=== PATIENT | female | born 1995 | race Caucasian/White ===

== ENCOUNTER 2024-05-14 14:20 | Emergency (ER) | payer OTHER, SELFPAY ==
[2024-05-14] VITALS (11 sets, daily range): BP systolic 100–119; BP diastolic 61–89; PULSE 110; TEMP 36.8; O2SAT 97–100; BMI 25.5
--- NOTE | 2024-05-14 14:43 | CT_ITS ---
[address] [address] Patient Name: TYRONE CLAROS MRN: [id number] date: 1995 Sex: F Assigned Patient Location: ER Current Patient Location: .[facility] Accession/Order Number: [id number] Exam Date: 05/14/2024 15:34 Report Date: 05/14/2024 16:05 At the request of: ALEXIS GALAN Procedure: CT abdomen pelvis w con EXAMINATION: CT abdomen pelvis w con HISTORY: lower abd pain, post op ; burning with urination; cyst removed from ovary; appendectomy 1 month ago COMPARISON: CT abdomen pelvis 12/18/2023 TECHNIQUE: Axial, Coronal, and Sagittal images were obtained without and/or with IV contrast as indicated by examination type. Dose reduction techniques were achieved by using automated exposure control and/or adjustment of mA and/or kV according to patient size and/or use of iterative reconstruction technique. FINDINGS: LUNG BASES: No visible pulmonary or pleural disease. LIVER: No enlargement, atrophy, suspicious density, or significant focal lesion. BILIARY: No dilatation or calcification. PANCREAS: No lesion, fluid collection, or abnormal duct dilatation. SPLEEN: Enlarged, 13.1 cm. ADRENALS: No mass or enlargement. KIDNEYS: No mass, obstruction, or calcification. BOWEL/MESENTERY: No visible mass, obstruction, or bowel wall thickening. Appendectomy. AORTA/VASCULAR: No aneurysm or dissection. RETROPERITONEUM: No mass or adenopathy. LYMPH NODES: No adenopathy. URINARY BLADDER: No visible focal wall thickening, lesion, or calculus. PELVIC ORGANS: Hysterectomy. Several prominent cysts within right ovary, largest is 2.4 cm. Unremarkable left ovary. Mild edema within the pelvic fat consistent with recent surgery. ABDOMINAL WALL: Mild edema and stranding within anterior abdominal wall consistent with recent surgery. Tiny fat filled umbilical hernia. BONES: No bony lesion or fracture. OTHER: Negative. CT/CT abdomen pelvis w con IMPRESSION: 1. Mild splenomegaly; nonspecific. 2. Right ovary contains several prominent cysts, largest is 2.4 cm. This may contribute to patient's symptoms. 3. Mild edema/inflammatory changes within the pelvis with evidence of prior appendectomy and hysterectomy. No abscess, free air, free fluid. 4. Unremarkable kidneys, ureters, and urinary bladder. Electronically authenticated by: ARI RADFORD Date: 05/14/2024 16:05
--- NOTE | 2024-05-14 14:44 | ED.ABDPAIN1 ---
Documented by User: ELA Olivier 05/14/24 18:33 HPI - Abdominal Pain General Chief Complaint: Abdominal Pain Stated Complaint: POSSIBLE POST OP COMPLICATIONS Time Seen by Provider: 05/14/24 14:33 Source: patient Mode of arrival: Wheelchair Limitations: no limitations History of Present Illness HPI narrative: 28-year-old female presents to the emergency department complaint of abdominal pain. Locates pain to the mid, lower abdominal region. Describes as sharp, stabbing. Has been constant since yesterday. Has had associated nausea and vomiting. Patient with history of surgery at the end of March at [facility]. Was released April 23. Reports surgeries for cysts and had her appendix removed. Has had some chills since yesterday. Denies any fever, diarrhea, constipation, dysuria. Thinks she may have had some hematuria. Quality:?Sharp Severity:?Moderate Timing:?As above, constant Context: Normal setting and activity? Modifying factors:?Pain worse with palpation Associated symptoms: As above Related Data Previous Rx's ?Medication ?Instructions ?Recorded ibuprofen 600 mg tablet 600 mg PO Q8H PRN pain #20 tabs 05/14/24 ondansetron 4 mg disintegrating 4 mg PO Q8H PRN nausea and 05/14/24 tablet vomiting #10 tabs tramadol 25 mg tablet 25 mg PO Q8H PRN pain 3 days #8 05/14/24 tabs Allergies Allergy/AdvReac Type Severity Reaction Status Date / Time chlorpheniramine (From Allergy Severe Swelling Verified 05/14/24 14:34 Triaminic Cold and Cough) of Lip/Tongue/Throat dextromethorphan (From Allergy Severe Swelling Verified 05/14/24 14:34 Triaminic Cold and Cough) of Lip/Tongue/Throat pseudoephedrine (From Allergy Severe Swelling Verified 05/14/24 14:34 Triaminic Cold and Cough) of Lip/Tongue/Throat Review of Systems ROS Constitutional Reports: chills; Denies: fever Cardiovascular Denies: chest pain Respiratory Denies: shortness of breath Gastrointestinal Reports: abdominal pain, nausea and vomiting; Denies: diarrhea, constipation or bloating Genitourinary Reports: blood in urine; Denies: painful urination or urinary frequency Musculoskeletal Denies: back pain PFSH PFS Surgical History (Updated 05/14/24 @ 15:18 by Josiah Barber) History of appendectomy ?Z90.49 - Acquired absence of other specified parts of digestive tract (ICD-10) History of removal of ovarian cyst ?Z98.890 - Other specified postprocedural states (ICD-10) ?Z87.42 - Personal history of other diseases of the female genital tract (ICD-10) History of hysterectomy ?Z90.710 - Acquired absence of both cervix and uterus (ICD-10) Exam Constitutional Vital Signs, click to edit/add: Last Vital Signs Temp 98.3 F 05/14/24 14:28 Pulse 110 H 05/14/24 14:28 Resp 22 H 05/14/24 14:28 BP 100/62 05/14/24 17:00 Pulse Ox 99 05/14/24 17:15 O2 Del Method Room Air 05/14/24 16:15 Documenting provider has reviewed patient's vital signs: yes Common normals: no apparent distress, oriented x3 and alert General appearance: well developed; not comfortable HENMT Common normals: normocephalic and head/scalp atraumatic Head and scalp: normocephalic and atraumatic Eye Common normals: conjunctivae normal Conjunctiva: conjunctiva(e) normal Respiratory Common normals: normal respiratory effort and clear to auscultation bilaterally Effort & inspection: able to speak in complete sentences Auscultation: clear to auscultation bilaterally Cardio Common normals: regular rate, regular rhythm and no murmurs Rate: regular rate Rhythm: regular rhythm GI Inspection: no abdominal distension Palpation: soft; non-tender and no guarding Other: Overall, the abdomen is soft. She has diffuse ecchymosis throughout the mid to lower abdominal region. There is a well-healing surgical scar going from umbilicus to pelvic region. There is some firmness, consider scar tissue versus mass. There is associated tenderness to this area as well as to the right mid abdominal regions. No appreciable distention. No rebound or guarding present Common normals: no CVA tenderness Bladder/kidney exam: no CVA tenderness Back & Pelvis Common normals: no CVA tenderness Neuro Common normals: oriented x3, moves all extremities and no focal motor deficits Sensorium/orientation: alert Psych Common normals: mental status grossly normal, thought process normal and cooperative Thought process: normal thought process Course Vital Signs Vital signs: Vital Signs Temperature 98.3 F 05/14/24 14:28 Pulse Rate 110 H 05/14/24 14:28 Respiratory Rate 22 H 05/14/24 14:28 Blood Pressure 119/89 05/14/24 14:28 Pulse Oximetry 98 05/14/24 14:28 Temperature 98.3 F 05/14/24 14:28 Pulse Rate 110 H 05/14/24 14:28 Respiratory Rate 22 H 05/14/24 14:28 Blood Pressure 100/62 05/14/24 17:00 Pulse Oximetry 99 05/14/24 17:15 Oxygen Delivery Method Room Air 05/14/24 16:15 MDM - Abdominal Pain MDM Narrative Medical decision making narrative: This is a pleasant 28-year-old female who presents with history of mid, lower abdominal pain since yesterday. History of surgery involving ovarian cyst, appendectomy at the end of March at [facility]. States had been doing well until yesterday. Has had nausea and vomiting. Denies any known fevers, dysuria, frequency. Patient with history of partial hysterectomy, still has both of her ovaries. On arrival, afebrile, vital signs are stable Exam, nontoxic, uncomfortable. Patient in no gross distress. Heart regular rate and rhythm. Lung sounds clear and equal bilaterally. Abdomen is soft with some tenderness diffusely to the lower abdominal and right mid regions. She does have a little firmness over her well-healing surgical scar that would be consistent with scar tissue. No rebound or guarding present. No discoloration. IV access established, blood work drawn, patient was given fluids and pain medication. She was given 2 doses of 4 mg morphine, Zofran, Toradol. Labs reveal no leukocytosis, anemia, thrombocytopenia, electrolyte imbalance, renal impairment. Glucose 84. LFTs, lipase unremarkable urinalysis shows no evidence of infection ET abdomen pelvis reveals mild splenomegaly; nonspecific. Right ovary contains several prominent cyst, largest is 2.4 cm. This may contribute to the patient's symptoms. Mild edema/inflammatory changes within the pelvis with evidence of prior appendectomy and hysterectomy. No abscess, free air, free fluid. Unremarkable kidneys, ureters, and urinary bladder. Favor postsurgical inflammatory changes, ovarian cyst in the etiology of her pain Abscess, perforation less likely based on imaging Urinary tract infection less likely based on laboratory testing History and record review Additional records reviewed: Attempted to obtain reports from Virgie Rowell without success. PDMP reviewed Additional testing interventions IV fluids: Hydration Reevaluation: Clinically improving and feeling better Complaint Disposition ? The patient was discharged. Plan: Patient will be discharged to home. Condition at time of disposition: stable Prescriptions for Motrin, Zofran, limited amount of tramadol sent to her pharmacy she Advised to follow up with primary provider. Advised to return for any worsening and/or development of new, concerning signs or symptoms Admission was considered, but no findings and diagnostic evaluation to be suggestive of infection, surgical problem PLEASE NOTE: Portions of the medical record may have been produced using electronic stitchdown toe former and may contain errors with respect to translation of words which may not have been identified prior to finalization of the chart. Medical Records Attestation: I reviewed the patient's medical records. Lab Data Attestation: I reviewed the patient's lab results. Labs: Lab Results 05/14/24 05/14/24 Range/Units 14:37 14:50 WBC 8.9 (4.0-11.0) 10^3/uL RBC 4.34 (4.20-5.40) 10^6/uL Hgb 12.1 (12.0-16.0) g/dL Hct 37.3 (36.0-48.0) % MCV 85.9 (81.0-99.0) fL MCH 27.9 (26.7-34.0) pg MCHC 32.4 (29.9-35.2) g/dL RDW 12.9 (11.0-15.0) % Plt Count 179 (150-450) 10^3/uL MPV 11.1 (9.5-13.5) fL Neut % (Auto) 67.3 (43.0-75.0) % Lymph % (Auto) 22.3 (20.5-60.0) % [place] % (Auto) 8.0 (1.7-12.0) % Eos % (Auto) 0.8 L (0.9-7.0) % Baso % (Auto) 0.5 (0.2-2.0) % Neut # (Auto) 6.0 (1.4-6.5) 10^3/uL Lymph # (Auto) 2.0 (1.2-3.8) 10^3/uL [place] # (Auto) 0.7 (0.3-0.8) 10^3/uL Eos # (Auto) 0.1 (0.0-0.7) 10^3/uL Baso # (Auto) 0.0 (0.0-0.1) 10^3/uL Abs Immat Gran (auto) 0.10 H (0.00-0.03) 10^3/uL Imm/Tot Granulo (auto) 1.1 H (0.0-0.5) % Sodium 139 (136-145) mmol/L Potassium 3.6 (3.5-5.1) mmol/L Chloride 102 (98-107) mmol/L Carbon Dioxide 26.0 (21.0-32.0) mmol/L Anion Gap 14.6 BUN 11.0 (7.0-18.0) mg/dL Creatinine 0.68 (0.55-1.02) mg/dL Est GFR ( Amer) >60 (>=60 mL/min/1.73m^2) Est GFR (Non-Af Amer) >60 (>=60 mL/min/1.73m^2) BUN/Creatinine Ratio 16.2 Glucose 84 (74-106) mg/dL Calcium 9.2 (8.5-10.1) mg/dL Magnesium 2.0 (1.8-2.4) mg/dL Total Bilirubin 0.4 (0.2-1.0) mg/dL AST 9 L (15-37) U/L ALT 13 L (14-59) U/L Alkaline Phosphatase 58 (46-116) U/L Total Protein 7.7 (6.4-8.2) g/dL Albumin 4.1 (3.4-5.0) g/dL Globulin 3.6 g/dL Albumin/Globulin Ratio 1.1 Lipase 24.0 (16.0-77.0) U/L Urine Color Yellow (YELLOW) Urine Clarity Clear (CLEAR) Urine pH 7.5 (5.0-9.0) Ur Specific [place] 1.015 (1.005-1.025) Urine Protein Trace (NEG/TRACE) mg/dL Urine Glucose (UA) Negative (NEGATIVE) mg/dL Urine Ketones Trace A (NEGATIVE) mg/dL Urine Occult Blood Negative (NEGATIVE) Urine Nitrite Negative (NEGATIVE) Urine Bilirubin Negative (NEGATIVE) Urine Urobilinogen 0.2 (0.2-1.0) EU/dL Ur Leukocyte Esterase Negative (NEGATIVE) Urine RBC 0-2 (0-2) #/HPF Urine WBC 0-2 A (NONE SEEN) #/HPF Ur Squamous Epith Cells Few A (NONE/RARE) #/LPF Urine Crystals None seen (None Seen) #/HPF Urine Bacteria Trace A (NONE SEEN) #/HPF Urine Casts None seen (NONE SEEN) #/LPF Urine Mucus Small A (NONE SEEN) Ur Culture Indicated? No Imaging Data CT scan - abdomen: Radiologist's impression: ITS Impressions Abdomen/Pelvis CT 05/14/24 14:43 IMPRESSION: 1. Mild splenomegaly; nonspecific. 2. Right ovary contains several prominent cysts, largest is 2.4 cm. This may contribute to patient's symptoms. 3. Mild edema/inflammatory changes within the pelvis with evidence of prior appendectomy and hysterectomy. No abscess, free air, free fluid. 4. Unremarkable kidneys, ureters, and urinary bladder. Electronically authenticated by: ARI RADFORD Date: 05/14/2024 16:05 Discharge Plan Discharge Chief Complaint: Abdominal Pain Clinical Impression: Lower abdominal pain Ovarian cyst Qualifiers: Laterality: right Qualified Code(s): N83.201 - Unspecified ovarian cyst, right side Nausea & vomiting Qualifiers: Vomiting type: unspecified Qualified Code(s): R11.2 - Nausea with vomiting, unspecified Patient Disposition: Home, Self-Care Time of Disposition Decision: 17:15 Condition: Good Mode of Transportation: Private Vehicle Prescriptions / Home Meds: New tramadol 25 mg tablet 25 mg PO Q8H PRN (Reason: pain) 3 Days Qty: 8 0RF ondansetron 4 mg tablet,disintegrating 4 mg PO Q8H PRN (Reason: nausea and vomiting) Qty: 10 0RF ibuprofen 600 mg tablet 600 mg PO Q8H PRN (Reason: pain) Qty: 20 0RF Print Language: Argentine Instructions: Ovarian Cyst (ED), Acute Nausea and Vomiting (ED), Abdominal Pain (ED) Referrals: Linwood Mchugh MD [Physician] - 1 week Discharge Date/Time: 05/14/24 17:30 Documented by User: Julio Rod MD 05/14/24 19:55 HPI - Abdominal Pain General Chief Complaint: Abdominal Pain Stated Complaint: POSSIBLE POST OP COMPLICATIONS Time Seen by Provider: 05/14/24 14:33 Related Data Previous Rx's ?Medication ?Instructions ?Recorded ibuprofen 600 mg tablet 600 mg PO Q8H PRN pain #20 tabs 05/14/24 ondansetron 4 mg disintegrating 4 mg PO Q8H PRN nausea and 05/14/24 tablet vomiting #10 tabs tramadol 25 mg tablet 25 mg PO Q8H PRN pain 3 days #8 05/14/24 tabs Allergies Allergy/AdvReac Type Severity Reaction Status Date / Time chlorpheniramine (From Allergy Severe Swelling Verified 05/14/24 14:34 Triaminic Cold and Cough) of Lip/Tongue/Throat dextromethorphan (From Allergy Severe Swelling Verified 05/14/24 14:34 Triaminic Cold and Cough) of Lip/Tongue/Throat pseudoephedrine (From Allergy Severe Swelling Verified 05/14/24 14:34 Triaminic Cold and Cough) of Lip/Tongue/Throat PFSH PFSH Surgical History (Updated 05/14/24 @ 15:18 by Josiah Barber) History of appendectomy ?Z90.49 - Acquired absence of other specified parts of digestive tract (ICD-10) History of removal of ovarian cyst ?Z98.890 - Other specified postprocedural states (ICD-10) ?Z87.42 - Personal history of other diseases of the female genital tract (ICD-10) History of hysterectomy ?Z90.710 - Acquired absence of both cervix and uterus (ICD-10) Exam Constitutional Vital Signs, click to edit/add: Last Vital Signs Temp 98.3 F 05/14/24 14:28 Pulse 110 H 05/14/24 14:28 Resp 22 H 05/14/24 14:28 BP 100/62 05/14/24 17:00 Pulse Ox 99 05/14/24 17:15 O2 Del Method Room Air 05/14/24 16:15 Course Vital Signs Vital signs: Vital Signs Temperature 98.3 F 05/14/24 14:28 Pulse Rate 110 H 05/14/24 14:28 Respiratory Rate 22 H 05/14/24 14:28 Blood Pressure 119/89 05/14/24 14:28 Pulse Oximetry 98 05/14/24 14:28 Temperature 98.3 F 05/14/24 14:28 Pulse Rate 110 H 05/14/24 14:28 Respiratory Rate 22 H 05/14/24 14:28 Blood Pressure 100/62 05/14/24 17:00 Pulse Oximetry 99 05/14/24 17:15 Oxygen Delivery Method Room Air 05/14/24 16:15 MDM - Abdominal Pain MDM Narrative Medical decision making narrative: This is a pleasant 28-year-old female who presents with history of mid, lower abdominal pain since yesterday. History of surgery involving ovarian cyst, appendectomy at the end of March at [facility]. States had been doing well until yesterday. Has had nausea and vomiting. Denies any known fevers, dysuria, frequency. Patient with history of partial hysterectomy, still has both of her ovaries. On arrival, afebrile, vital signs are stable Exam, nontoxic, uncomfortable. Patient in no gross distress. Heart regular rate and rhythm. Lung sounds clear and equal bilaterally. Abdomen is soft with some tenderness diffusely to the lower abdominal and right mid regions. She does have a little firmness over her well-healing surgical scar that would be consistent with scar tissue. No rebound or guarding present. No discoloration. IV access established, blood work drawn, patient was given fluids and pain medication. She was given 2 doses of 4 mg morphine, Zofran, Toradol. Labs reveal no leukocytosis, anemia, thrombocytopenia, electrolyte imbalance, renal impairment. Glucose 84. LFTs, lipase unremarkable urinalysis shows no evidence of infection ET abdomen pelvis reveals mild splenomegaly; nonspecific. Right ovary contains several prominent cyst, largest is 2.4 cm. This may contribute to the patient's symptoms. Mild edema/inflammatory changes within the pelvis with evidence of prior appendectomy and hysterectomy. No abscess, free air, free fluid. Unremarkable kidneys, ureters, and urinary bladder. Favor postsurgical inflammatory changes, ovarian cyst in the etiology of her pain Abscess, perforation less likely based on imaging Urinary tract infection less likely based on laboratory testing History and record review Additional records reviewed: Attempted to obtain reports from Virgie Rowell without success. PDMP reviewed Additional testing interventions IV fluids: Hydration Reevaluation: Clinically improving and feeling better Complaint Disposition ? The patient was discharged. Plan: Patient will be discharged to home. Condition at time of disposition: stable Prescriptions for Motrin, Zofran, limited amount of tramadol sent to her pharmacy she Advised to follow up with primary provider. Advised to return for any worsening and/or development of new, concerning signs or symptoms Admission was considered, but no findings and diagnostic evaluation to be suggestive of infection, surgical problem I, Dr Rod, have reviewed the above progress note and course of action in the ER; agree with the above. I have personally gone over history and physical, and discussed disposition and treatment plan with the patient. PLEASE NOTE: Portions of the medical record may have been produced using electronic stitchdown toe former and may contain errors with respect to translation of words which may not have been identified prior to finalization of the chart. Lab Data Labs: Lab Results 05/14/24 05/14/24 Range/Units 14:37 14:50 WBC 8.9 (4.0-11.0) 10^3/uL RBC 4.34 (4.20-5.40) 10^6/uL Hgb 12.1 (12.0-16.0) g/dL Hct 37.3 (36.0-48.0) % MCV 85.9 (81.0-99.0) fL MCH 27.9 (26.7-34.0) pg MCHC 32.4 (29.9-35.2) g/dL RDW 12.9 (11.0-15.0) % Plt Count 179 (150-450) 10^3/uL MPV 11.1 (9.5-13.5) fL Neut % (Auto) 67.3 (43.0-75.0) % Lymph % (Auto) 22.3 (20.5-60.0) % [place] % (Auto) 8.0 (1.7-12.0) % Eos % (Auto) 0.8 L (0.9-7.0) % Baso % (Auto) 0.5 (0.2-2.0) % Neut # (Auto) 6.0 (1.4-6.5) 10^3/uL Lymph # (Auto) 2.0 (1.2-3.8) 10^3/uL [place] # (Auto) 0.7 (0.3-0.8) 10^3/uL Eos # (Auto) 0.1 (0.0-0.7) 10^3/uL Baso # (Auto) 0.0 (0.0-0.1) 10^3/uL Abs Immat Gran (auto) 0.10 H (0.00-0.03) 10^3/uL Imm/Tot Granulo (auto) 1.1 H (0.0-0.5) % Sodium 139 (136-145) mmol/L Potassium 3.6 (3.5-5.1) mmol/L Chloride 102 (98-107) mmol/L Carbon Dioxide 26.0 (21.0-32.0) mmol/L Anion Gap 14.6 BUN 11.0 (7.0-18.0) mg/dL Creatinine 0.68 (0.55-1.02) mg/dL Est GFR ( Amer) >60 (>=60 mL/min/1.73m^2) Est GFR (Non-Af Amer) >60 (>=60 mL/min/1.73m^2) BUN/Creatinine Ratio 16.2 Glucose 84 (74-106) mg/dL Calcium 9.2 (8.5-10.1) mg/dL Magnesium 2.0 (1.8-2.4) mg/dL Total Bilirubin 0.4 (0.2-1.0) mg/dL AST 9 L (15-37) U/L ALT 13 L (14-59) U/L Alkaline Phosphatase 58 (46-116) U/L Total Protein 7.7 (6.4-8.2) g/dL Albumin 4.1 (3.4-5.0) g/dL Globulin 3.6 g/dL Albumin/Globulin Ratio 1.1 Lipase 24.0 (16.0-77.0) U/L Urine Color Yellow (YELLOW) Urine Clarity Clear (CLEAR) Urine pH 7.5 (5.0-9.0) Ur Specific [place] 1.015 (1.005-1.025) Urine Protein Trace (NEG/TRACE) mg/dL Urine Glucose (UA) Negative (NEGATIVE) mg/dL Urine Ketones Trace A (NEGATIVE) mg/dL Urine Occult Blood Negative (NEGATIVE) Urine Nitrite Negative (NEGATIVE) Urine Bilirubin Negative (NEGATIVE) Urine Urobilinogen 0.2 (0.2-1.0) EU/dL Ur Leukocyte Esterase Negative (NEGATIVE) Urine RBC 0-2 (0-2) #/HPF Urine WBC 0-2 A (NONE SEEN) #/HPF Ur Squamous Epith Cells Few A (NONE/RARE) #/LPF Urine Crystals None seen (None Seen) #/HPF Urine Bacteria Trace A (NONE SEEN) #/HPF Urine Casts None seen (NONE SEEN) #/LPF Urine Mucus Small A (NONE SEEN) Ur Culture Indicated? No Imaging Data CT scan - abdomen: Radiologist's impression: ITS Impressions Abdomen/Pelvis CT 05/14/24 14:43
[2024-05-14 14:56] LABS: Bilirubin Urine NEGATIVE (NEGATIVE); Blood Urine NEGATIVE (NEGATIVE); Clarity Urine CLEAR (CLEAR); Color Urine YELLOW (YELLOW); Glucose Urine UA NEGATIVE (NEGATIVE); Ketones Urine TRACE mg/dL (NEGATIVE); Leukocyte Esterase Urine NEGATIVE (NEGATIVE); Nitrite Urine NEGATIVE (NEGATIVE); Protein Urine TRACE mg/dL (NEG/TRACE); Specific Gravity Urine 1.015 (1.005-1.025); Urobilinogen Urine 0.2 EU/dL (0.2-1.0); pH Urine 7.5 (5.0-9.0)
[2024-05-14] MEDS: MORPHINE SULFATE 4 MG/ML VIAL IV ×2 (15:04→16:12)
[2024-05-14] MEDS: ONDANSETRON PF 4 MG/2 ML VIAL IV (15:04)
[2024-05-14] MEDS: 0.9 % SODIUM CHLORIDE 1,000 ML 999 ML IV (15:05)
[2024-05-14 15:09] LABS: Bacteria Urine TRACE #/HPF (NONE SEEN); Cast Seen? NONE SEEN #/LPF (NONE SEEN); Crystals Seen? None Seen #/HPF (None Seen); Mucus Urine SMALL (NONE SEEN); RBC Urine 0-2 #/HPF (0-2); Squamous Epithelial Cell Urine FEW #/LPF (NONE/RARE); Urine Culture Indicated NO; WBC Urine 0-2 #/HPF (NONE SEEN)
[2024-05-14 15:20] LABS: Basophils Percent Auto 0.5 % (0.2-2.0); Eosinophils Absolute Auto 0.1 10^3/uL (0.0-0.7); Eosinophils Percent Auto 0.8 % (0.9-7.0); Hematocrit 37.3 % (36.0-48.0); Hemoglobin 12.1 g/dL (12.0-16.0); Immature Granulocytes Pct Auto 1.1 % (0.0-0.5); Lymphocytes Percent Auto 22.3 % (20.5-60.0); Mean Corpuscular HGB Conc 32.4 g/dL (29.9-35.2); Mean Corpuscular Hemoglobin 27.9 pg (26.7-34.0); Mean Corpuscular Volume 85.9 fL (81.0-99.0); Mean Platelet Volume 11.1 fL (9.5-13.5); Monocytes Absolute Auto 0.7 10^3/uL (0.3-0.8); Neutrophils Percent Auto 67.3 % (43.0-75.0); Platelet Count 179 10^3/uL (150-450); Red Blood Count 4.34 10^6/uL (4.20-5.40); Red Cell Distribution Width 12.9 % (11.0-15.0); White Blood Count 8.9 10^3/uL (4.0-11.0)
[2024-05-14 15:30] LABS: Alanine Aminotransferase 13 U/L (14-59); Albumin Globulin Ratio 1.1; Albumin Level 4.1 g/dL (3.4-5.0); Alkaline Phosphatase 58 U/L (46-116); Anion Gap 14.6; Aspartate Amino Transferase 9 U/L (15-37); BUN Creatinine Ratio 16.2; Bilirubin Total 0.4 mg/dL (0.2-1.0); Calcium 9.2 mg/dL (8.5-10.1); Chloride 102 mmol/L (98-107); Estimated GFR (African America >60 (>=60 mL/min/1.73m^2); Estimated GFR (Non-African Ame >60 (>=60 mL/min/1.73m^2); Globulin 3.6 g/dL; Glucose 84 mg/dL (74-106); Potassium 3.6 mmol/L (3.5-5.1); Sodium 139 mmol/L (136-145); Total Protein 7.7 g/dL (6.4-8.2)
[2024-05-14] MEDS: KETOROLAC TROMETHAMINE 30 MG/ML VIAL 15 MG IVP (16:45)
== END 2024-05-14 17:30 | disposition home or self-care (01) ==
PROVIDERS: Physician Assistant; Emergency Provider Emergency Medicine
DX: R10.30 Lower abdominal pain, unspecified (principal); N83.201 Unspecified ovarian cyst, right side; R16.1 Splenomegaly, not elsewhere classified; Z90.49 Acquired absence of other specified parts of digestive tract; Z90.711 Acquired absence of uterus with remaining cervical stump; R11.2 Nausea with vomiting, unspecified
CPT/HCPCS: 36415; 74177; 80053; 81001; 83690; 83735; 85025; 96361; 96374; 96375; 96376; 99285; J1885; J2270; J2405; Q9967

== ENCOUNTER 2024-05-31 10:27 | Emergency (ER) | payer SELFPAY ==
[2024-05-31 10:45] VITALS: BP 111/77; PULSE 99; TEMP 36.7; O2SAT 98; BMI 25.7
[2024-05-31 11:00] LABS: Bilirubin Urine NEGATIVE (NEGATIVE); Blood Urine NEGATIVE (NEGATIVE); Clarity Urine CLEAR (CLEAR); Color Urine YELLOW (YELLOW); Glucose Urine UA NEGATIVE (NEGATIVE); Ketones Urine NEGATIVE (NEGATIVE); Leukocyte Esterase Urine NEGATIVE (NEGATIVE); Nitrite Urine NEGATIVE (NEGATIVE); Protein Urine 30 mg/dL (NEG/TRACE); Urobilinogen Urine 0.2 EU/dL (0.2-1.0)
[2024-05-31 11:02] LABS: Urine Microscopic Indicated NO
== END 2024-05-31 11:36 | disposition left against medical advice (07) ==
PROVIDERS: Emergency Provider Emergency Medicine
DX: Z53.21 Procedure and treatment not carried out due to patient leaving prior to being seen by health care provider (principal)
CPT/HCPCS: 81003; 99281; 99283

== ENCOUNTER 2024-06-24 07:53 | Emergency (ER) | payer SELFPAY ==
[2024-06-24 07:55] VITALS: BP 117/68; PULSE 86; TEMP 37.3; O2SAT 99; BMI 25.5
--- NOTE | 2024-06-24 08:04 | US_ITS ---
The [address] [address] Patient Name: TYRONE CLAROS MRN: [id number] date: 1995 Sex: F Assigned Patient Location: ER Current Patient Location: ER Accession/Order Number: [id number] Exam Date: 06/24/2024 08:05 Report Date: 06/24/2024 09:00 At the request of: MASON PEREZ Procedure: US pelvis transvaginal EXAMINATION: US pelvis transvaginal HISTORY: Pain, history of cysts, has had hysterectomy COMPARISON: 05/14/2024 CT exam FINDINGS: The uterus is not visualized consistent with history of hysterectomy. The right ovary measures 5.7 x 5.4 x 4.5 cm. Normal color and Doppler flow. Multiple complex/septated cystic lesions the largest measuring 3.7 x 3.5 x 2.4 cm The left ovary measures 1.8 x 1.5 x 1.7 cm. Normal color Doppler flow No free fluid US/US pelvis transvaginal IMPRESSION: Multiple complex right ovarian cysts, the largest measuring 3.7 cm. Electronically authenticated by: LAKHWINDER STEEN Date: 06/24/2024 09:00
--- NOTE | 2024-06-24 08:06 | ED.GENADUL1 ---
HPI HPI - General Adult General Chief complaint: Abdominal Pain Stated complaint: PAIN IN PELVIC AREA Time Seen by Provider: 06/24/24 07:55 Source: patient Mode of arrival: ambulance Limitations: no limitations History of Present Illness HPI narrative: 28-year-old female presents to the emergency department for low abdominal pain. She has been having this for few days and it was worse today. She states she has a history of ovarian cysts and she has had a hysterectomy. No fever or vaginal bleeding or dysuria or back pain. The pain is moderate to severe and continuous. Related Data Previous Rx's ?Medication ?Instructions ?Recorded ibuprofen 600 mg tablet 600 mg PO Q8H PRN pain #20 tabs 05/14/24 ondansetron 4 mg disintegrating 4 mg PO Q8H PRN nausea and 05/14/24 tablet vomiting #10 tabs tramadol 25 mg tablet 25 mg PO Q8H PRN pain 3 days #8 05/14/24 tabs hydrocodone 5 mg-acetaminophen 325 1 tab PO Q6H PRN pain 5 days #20 06/24/24 mg tablet tabs Allergies Allergy/AdvReac Type Severity Reaction Status Date / Time chlorpheniramine (From Allergy Severe Swelling Verified 06/24/24 07:55 Triaminic Cold and Cough) of Lip/Tongue/Throat dextromethorphan (From Allergy Severe Swelling Verified 06/24/24 07:55 Triaminic Cold and Cough) of Lip/Tongue/Throat pseudoephedrine (From Allergy Severe Swelling Verified 06/24/24 07:55 Triaminic Cold and Cough) of Lip/Tongue/Throat Opioid HPI Opioid Management Most Recent Opioid Data: Last Pain Scale 8 06/24/24 08:51 06/24/24 Last ED Pain Assessment 06/24/24 08:51 Last MAR Pain Assessment 06/24/24 08:23 Review of Systems ROS Narrative A ten point review of systems is negative except as noted above. PFSH PFSH Surgical History (Updated 05/14/24 @ 15:18 by Josiah Barber) History of appendectomy ?Z90.49 - Acquired absence of other specified parts of digestive tract (ICD-10) History of removal of ovarian cyst ?Z98.890 - Other specified postprocedural states (ICD-10) ?Z87.42 - Personal history of other diseases of the female genital tract (ICD-10) History of hysterectomy ?Z90.710 - Acquired absence of both cervix and uterus (ICD-10) Social History Little interest or pleasure in doing things: not at all Feeling down, depressed, or hopeless: not at all Exam Narrative Exam Narrative: Nurses note and vital signs reviewed and patient is not hypoxic. General: The patient appears well and in no apparent distress. Patient is resting comfortably on cart. Skin: Warm, dry, no pallor noted. There is no rash noted. Head: Normocephalic, atraumatic Eye: Normal conjunctiva, no drainage Ears, Nose, Mouth, and Throat: oral mucosa is moist. Nares patent. Cardiovascular: Regular Rate and Rhythm Respiratory: Patient is in no distress, no accessory muscle use, lungs are clear to auscultation, no wheezing, rales or rhonchi Back: non-tender GI: Nondistended, no masses. Bilateral lower abdominal tenderness present. No rebound. Musculoskeletal: The patient has no evidence of calf tenderness, no pitting edema, symmetrical pulses noted bilaterally Neurological: A&O, normal speech Psychiatric: Cooperative Constitutional Vital Signs, click to edit/add: Last Vital Signs Temp 99.1 F 06/24/24 07:55 Pulse 86 06/24/24 07:55 Resp 20 06/24/24 07:55 BP 117/68 06/24/24 07:55 Pulse Ox 99 06/24/24 07:55 O2 Del Method Room Air 06/24/24 07:55 Course Vital Signs Vital signs: Vital Signs Temperature 99.1 F 06/24/24 07:55 Pulse Rate 86 06/24/24 07:55 Respiratory Rate 20 06/24/24 07:55 Blood Pressure 117/68 06/24/24 07:55 Pulse Oximetry 99 06/24/24 07:55 Oxygen Delivery Method Room Air 06/24/24 07:55 Temperature 99.1 F 06/24/24 07:55 Pulse Rate 86 06/24/24 07:55 Respiratory Rate 20 06/24/24 07:55 Blood Pressure 117/68 06/24/24 07:55 Pulse Oximetry 99 06/24/24 07:55 Oxygen Delivery Method Room Air 06/24/24 07:55 Medical Decision Making MDM Narrative Medical decision making narrative: Ultrasound shows ovarian cysts. No evidence of torsion or hemorrhagic cyst. She will be prescribed pain medication and follow-up with her preferred clinical research management associate. Prescription sent for [place], 20 tablets. Treatment diagnosis and follow-up were discussed with the patient. Differential Diagnosis Differential Diagnosis: Ovarian cyst, ovarian torsion, UTI Lab Data Lab results reviewed: Yes I reviewed the patient's lab results Labs: Lab Results 06/24/24 06/24/24 Range/Units 08:13 09:20 WBC 6.3 (4.0-11.0) 10^3/uL RBC 4.17 L (4.20-5.40) 10^6/uL Hgb 11.6 L (12.0-16.0) g/dL Hct 35.8 L (36.0-48.0) % MCV 85.9 (81.0-99.0) fL MCH 27.8 (26.7-34.0) pg MCHC 32.4 (29.9-35.2) g/dL RDW 13.6 (11.0-15.0) % Plt Count 289 (150-450) 10^3/uL MPV 9.3 L (9.5-13.5) fL Neut % (Auto) 61.3 (43.0-75.0) % Lymph % (Auto) 31.8 (20.5-60.0) % [place] % (Auto) 5.9 (1.7-12.0) % Eos % (Auto) 0.5 L (0.9-7.0) % Baso % (Auto) 0.3 (0.2-2.0) % Neut # (Auto) 3.8 (1.4-6.5) 10^3/uL Lymph # (Auto) 2.0 (1.2-3.8) 10^3/uL [place] # (Auto) 0.4 (0.3-0.8) 10^3/uL Eos # (Auto) 0.0 (0.0-0.7) 10^3/uL Baso # (Auto) 0.0 (0.0-0.1) 10^3/uL Abs Immat Gran (auto) 0.01 (0.00-0.03) 10^3/uL Imm/Tot Granulo (auto) 0.2 (0.0-0.5) % Sodium 139 (136-145) mmol/L Potassium 3.9 (3.5-5.1) mmol/L Chloride 105 (98-107) mmol/L Carbon Dioxide 25.3 (21.0-32.0) mmol/L Anion Gap 12.6 BUN 11.0 (7.0-18.0) mg/dL Creatinine 0.63 (0.55-1.02) mg/dL Est GFR ( Amer) >60 (>=60 mL/min/1.73m^2) Est GFR (Non-Af Amer) >60 (>=60 mL/min/1.73m^2) BUN/Creatinine Ratio 17.5 Glucose 92 (74-106) mg/dL Calcium 8.6 (8.5-10.1) mg/dL Urine Color Yellow (YELLOW) Urine Clarity Clear (CLEAR) Urine pH 8.5 (5.0-9.0) Ur Specific [place] 1.015 (1.005-1.025) Urine Protein Trace (NEG/TRACE) mg/dL Urine Glucose (UA) Negative (NEGATIVE) mg/dL Urine Ketones Negative (NEGATIVE) mg/dL Urine Occult Blood Negative (NEGATIVE) Urine Nitrite Negative (NEGATIVE) Urine Bilirubin Negative (NEGATIVE) Urine Urobilinogen 0.2 (0.2-1.0) EU/dL Ur Leukocyte Esterase Negative (NEGATIVE) Urine RBC 0-2 (0-2) #/HPF Urine WBC 0-2 A (NONE SEEN) #/HPF Ur Squamous Epith Cells Few A (NONE/RARE) #/LPF Urine Crystals Seen A (None Seen) #/HPF Triple Phos Crystals Few Urine Bacteria Trace A (NONE SEEN) #/HPF Urine Casts None seen (NONE SEEN) #/LPF Urine Mucus Small A (NONE SEEN) Imaging Data Pelvic ultrasound: Radiologist's impression: ITS Impressions Transvaginal US 06/24/24 08:04 IMPRESSION: Multiple complex right ovarian cysts, the largest measuring 3.7 cm. Electronically authenticated by: JOSIAH STEEN Date: 06/24/2024 09:00 Discharge Plan Discharge Chief Complaint: Abdominal Pain Clinical Impression: Ovarian cyst Qualifiers: Laterality: right Qualified Code(s): N83.201 - Unspecified ovarian cyst, right side Patient Disposition: Home, Self-Care Time of Disposition Decision: 09:32 Condition: Good Mode of Transportation: Private Vehicle Prescriptions / Home Meds: New hydrocodone-acetaminophen 5-325 mg tablet 1 tab PO Q6H PRN (Reason: pain) 5 Days Qty: 20 0RF No Action tramadol 25 mg tablet 25 mg PO Q8H PRN (Reason: pain) 3 Days Qty: 8 0RF ondansetron 4 mg tablet,disintegrating 4 mg PO Q8H PRN (Reason: nausea and vomiting) Qty: 10 0RF ibuprofen 600 mg tablet 600 mg PO Q8H PRN (Reason: pain) Qty: 20 0RF Print Language: Kazakh Instructions: Ovarian Cyst (ED) Additional Instructions: Follow-up with your clinical research management associate Referrals: Physician,Non-Staff, MD [Primary Care Provider] - 1 week
[2024-06-24] MEDS: 0.9 % SODIUM CHLORIDE 1,000 ML 1000 ML IV (08:21)
[2024-06-24 08:22] LABS: Basophils Percent Auto 0.3 % (0.2-2.0); Eosinophils Percent Auto 0.5 % (0.9-7.0); Hematocrit 35.8 % (36.0-48.0); Hemoglobin 11.6 g/dL (12.0-16.0); Immature Granulocytes Abs Auto 0.01 10^3/uL (0.00-0.03); Immature Granulocytes Pct Auto 0.2 % (0.0-0.5); Lymphocytes Percent Auto 31.8 % (20.5-60.0); Mean Corpuscular HGB Conc 32.4 g/dL (29.9-35.2); Mean Corpuscular Hemoglobin 27.8 pg (26.7-34.0); Mean Corpuscular Volume 85.9 fL (81.0-99.0); Mean Platelet Volume 9.3 fL (9.5-13.5); Monocytes Absolute Auto 0.4 10^3/uL (0.3-0.8); Monocytes Percent Auto 5.9 % (1.7-12.0); Neutrophils Absolute Auto 3.8 10^3/uL (1.4-6.5); Neutrophils Percent Auto 61.3 % (43.0-75.0); Platelet Count 289 10^3/uL (150-450); Red Blood Count 4.17 10^6/uL (4.20-5.40); Red Cell Distribution Width 13.6 % (11.0-15.0); White Blood Count 6.3 10^3/uL (4.0-11.0)
[2024-06-24] MEDS: ONDANSETRON PF 4 MG/2 ML VIAL IV (08:22)
[2024-06-24] MEDS: KETOROLAC TROMETHAMINE 30 MG/ML VIAL IVP (08:23)
[2024-06-24 08:31] LABS: Anion Gap 12.6; BUN Creatinine Ratio 17.5; Calcium 8.6 mg/dL (8.5-10.1); Carbon Dioxide 25.3 mmol/L (21.0-32.0); Chloride 105 mmol/L (98-107); Estimated GFR (African America >60 (>=60 mL/min/1.73m^2); Estimated GFR (Non-African Ame >60 (>=60 mL/min/1.73m^2); Glucose 92 mg/dL (74-106); Potassium 3.9 mmol/L (3.5-5.1); Sodium 139 mmol/L (136-145)
[2024-06-24 09:25] LABS: Bilirubin Urine NEGATIVE (NEGATIVE); Blood Urine NEGATIVE (NEGATIVE); Clarity Urine CLEAR (CLEAR); Color Urine YELLOW (YELLOW); Glucose Urine UA NEGATIVE (NEGATIVE); Ketones Urine NEGATIVE (NEGATIVE); Leukocyte Esterase Urine NEGATIVE (NEGATIVE); Nitrite Urine NEGATIVE (NEGATIVE); Protein Urine TRACE mg/dL (NEG/TRACE); Specific Gravity Urine 1.015 (1.005-1.025); Urobilinogen Urine 0.2 EU/dL (0.2-1.0); pH Urine 8.5 (5.0-9.0)
[2024-06-24 09:32] LABS: Bacteria Urine TRACE #/HPF (NONE SEEN); Cast Seen? NONE SEEN #/LPF (NONE SEEN); Crystals Seen? Seen #/HPF (None Seen); Mucus Urine SMALL (NONE SEEN); RBC Urine 0-2 #/HPF (0-2); Squamous Epithelial Cell Urine FEW #/LPF (NONE/RARE); WBC Urine 0-2 #/HPF (NONE SEEN)
[2024-06-24 09:33] LABS: Triple Phosphate Crystal Urine FEW
[2024-06-24 09:41] VITALS: BP 115/74; PULSE 75; O2SAT 99
== END 2024-06-24 09:42 | disposition home or self-care (01) ==
PROVIDERS: Emergency Provider Emergency Medicine
DX: N83.291 Other ovarian cyst, right side (principal); Z90.710 Acquired absence of both cervix and uterus
CPT/HCPCS: 36415; 76830; 80048; 81001; 85025; 96374; 96375; 99284; J1885; J2405

== ENCOUNTER 2024-08-28 14:22 | Emergency (ER) | payer SELFPAY ==
[2024-08-28 14:36] VITALS: BP 137/92; PULSE 111; TEMP 36.8; O2SAT 100; BMI 26.6
--- NOTE | 2024-08-28 14:49 | ED_ITS ---
HPI - Abdominal Pain General Chief Complaint: Abdominal Pain Stated Complaint: ABDOMINAL PAIN Time Seen by Provider: 08/28/24 14:34 Source: patient and family (mother) Mode of arrival: walk-in Limitations: no limitations History of Present Illness HPI narrative: 28-year-old female presents to the emergency department with mother with complaint of lower abdominal and pelvic pain. Has been having problems since [place], however, pain has been worse since 2:30 AM this morning. Describes as sharp. Has had associated nausea. She did notice some blood when she wipes, but this resolved. Urine also had odor to it. Denies any dysuria, frequency. Patient with history of partial hysterectomy in November 2023. States she retained both ovaries. She developed subsequent abscess and had to be hospitalized for sepsis at the [facility]. She states she has a vaginal cuff that, exploded, in March and has been having pain, problems since. Patient with history of surgery at the end of March at [facility]. Was released April 23. Reports surgeries for ovarian cysts and had her appendix removed. Has an September appointment Dr. Bains in [place], as well as, an ultrasound. Quality:?sharp Severity:?moderate Timing:?as above, constant Context: Normal setting and activity? Modifying factors:?worse with palpation Associated symptoms: as above Related Data Home Medications ?Medication ?Instructions ?Recorded ?Confirmed venlafaxine 75 mg capsule,extended 75 mg PO DAILY 08/28/24 08/28/24 release 24 hr Previous Rx's ?Medication ?Instructions ?Recorded hydrocodone 5 mg-acetaminophen 325 1 tab PO Q8H PRN pain 3 days #8 08/28/24 mg tablet tabs ibuprofen 600 mg tablet 600 mg PO Q8H PRN pain #20 tabs 08/28/24 ondansetron 4 mg disintegrating 4 mg PO Q8H PRN nausea and 08/28/24 tablet vomiting #10 tabs Allergies Allergy/AdvReac Type Severity Reaction Status Date / Time chlorpheniramine (From Allergy Severe Swelling Verified 06/24/24 07:55 Triaminic Cold and Cough) of Lip/Tongue/Throat dextromethorphan (From Allergy Severe Swelling Verified 06/24/24 07:55 Triaminic Cold and Cough) of Lip/Tongue/Throat pseudoephedrine (From Allergy Severe Swelling Verified 06/24/24 07:55 Triaminic Cold and Cough) of Lip/Tongue/Throat Review of Systems ROS Narrative CONST: Denies any fever, chills RESP: Denies any shortness of breath CV: Denies any chest pain GI: +abd pain.? + nausea. Denies vomiting, diarrhea. : + hematuria, pelvic, vaginal pain. Denies any flank pain, dysuria MS: + low babck pain. SKIN: Denies any color change, rash NEURO: Denies numbness, weakness PSYCHIATRIC: Denies confusion, agitation PFSH PFSH Surgical History History of appendectomy ?Z90.49 - Acquired absence of other specified parts of digestive tract (ICD- 10) History of removal of ovarian cyst ?Z98.890 - Other specified postprocedural states (ICD-10) ?Z87.42 - Personal history of other diseases of the female genital tract (ICD-10) History of hysterectomy ?Z90.710 - Acquired absence of both cervix and uterus (ICD-10) Social History Little interest or pleasure in doing things: not at all Feeling down, depressed, or hopeless: not at all Exam Narrative Exam Narrative: Vital signs reviewed Nurses notes noted CONST: Nontoxic, uncomfortable appearing, tearful, well nourished, in mild distress.? No diaphoresis.?? HENT: normocephalic, atraumatic, moist mucous membrane, no abnormalities of the nose noted, hearing normal EYES: normal appearing conjunctiva, no apparent discharge bilat NECK: normal appearance CV: normal rate, regular rhythm, no murmur RESP: normal effort, speaking in complete sentences. Lung sounds clear and equal bilat.? No wheezes, rales, rhonchi GI: soft, no distension, +tenderness:across the lower abd and through the pelvic regions : no CVA tenderness MS: no edema, tenderness SKIN: no pallor NEURO: A&Ox 3, no focal findings PSYCH: normal mood, tearful affect Constitutional Vital Signs, click to edit/add: Last Vital Signs Temp 98.3 F 08/28/24 14:36 Pulse 72 08/28/24 18:38 Resp 16 08/28/24 18:38 BP 114/74 08/28/24 18:38 Pulse Ox 100 08/28/24 18:38 O2 Del Method Room Air 08/28/24 18:38 Course Reevaluation(s) Reevaluation #1: On reevaluation, patient appears much more comfortable. She subjectively is feeling better. Discussed with patient and mother results, plan, and disposition. Patient and mother are agreeable. Time: 18:25 Vital Signs Vital signs: Vital Signs Temperature 98.3 F 08/28/24 14:36 Pulse Rate 111 H 08/28/24 14:36 Respiratory Rate 18 08/28/24 14:36 Blood Pressure 137/92 H 08/28/24 14:36 Pulse Oximetry 100 08/28/24 14:36 Oxygen Delivery Method Room Air 08/28/24 14:36 Temperature 98.3 F 08/28/24 14:36 Pulse Rate 72 08/28/24 18:38 Respiratory Rate 16 08/28/24 18:38 Blood Pressure 114/74 08/28/24 18:38 Pulse Oximetry 100 08/28/24 18:38 Oxygen Delivery Method Room Air 08/28/24 18:38 MDM - Abdominal Pain MDM Narrative Medical decision making narrative: This is a pleasant 28-year-old female who presents to the emergency department for evaluation of abdominal and pelvic pain. Has been having ongoing problems with pain since March. Worse since this morning. Did have 2 episodes after urinating where she wiped and noted blood. History of partial hysterectomy. They did not remove her ovaries. She has had history of ovarian cyst. History of vaginal cuff. On arrival, afebrile, vital signs are stable Exam, nontoxic, uncomfortable appearing patient in mild distress. She is tearful. Heart regular rate and rhythm. Lung sounds clear and equal bilaterally. Abdomen soft. She has no tenderness to the mid and upper abdominal region. She complains of tenderness with some voluntary guarding across the lower abdomen and pelvic regions. IV established, blood work was drawn and sent to the lab. She was given initially morphine, Zofran, and Toradol which did give some temporary relief until she had to move around going over to CT table Labs reveal no leukocytosis, anemia, thrombocytopenia, electrolyte imbalance, renal impairment. Glucose 72. LFTs, lipase unremarkable. Urinalysis showed specific gravity of greater than 1.030, otherwise no remarkable findings. CT abdomen pelvis imaging, per radiologist revealed no acute findings Ultrasound was performed on her ovaries which showed left-sided ovarian cyst, possibly hemorrhagic. Pain improved during ED course. She appeared very comfortable at time of disposition. Favor lower abdominal, pelvic pain, ovarian cyst on the left UTI less likely based on urinalysis Intra-abdominal infection, abscess less likely based on imaging Perforation less likely based on imaging History and Record Review Discussion with independent historian: Mother Additional records reviewed: Prior ED visit in April; [facility] report Additional Tests and Interventions IV Fluids:hydration/inability to tolerate PO Re-Evaluation See ED course Disposition ? The patient was discharged. Prescriptions sent to pharmacy: Limited supply of [place], Motrin, Zofran Plan: Patient will be discharged to home .? Condition at time of disposition: stable, improved.? Advised to follow up with referral provider, name and number placed on discharge paperwork. Advised to return for any worsening and/or development of new, concerning signs or symptoms PLEASE NOTE: Portions of the medical record may have been produced using electronic financial sales manager and may contain errors with respect to translation of words which may not have been identified prior to finalization of the chart. Medical Records Attestation: I reviewed the patient's medical records. Lab Data Attestation: I reviewed the patient's lab results. Labs: Lab Results 08/28/24 08/28/24 Range/Units 15:00 15:05 WBC 7.9 (4.0-11.0) 10^3/uL RBC 4.51 (4.20-5.40) 10^6/uL Hgb 12.7 (12.0-16.0) g/dL Hct 39.6 (36.0-48.0) % MCV 87.8 (81.0-99.0) fL MCH 28.2 (26.7-34.0) pg MCHC 32.1 (29.9-35.2) g/dL RDW 13.9 (11.0-15.0) % Plt Count 270 (150-450) 10^3/uL MPV 9.9 (9.5-13.5) fL Neut % (Auto) 64.2 (43.0-75.0) % Lymph % (Auto) 29.9 (20.5-60.0) % [place] % (Auto) 5.1 (1.7-12.0) % Eos % (Auto) 0.4 L (0.9-7.0) % Baso % (Auto) 0.3 (0.2-2.0) % Neut # (Auto) 5.1 (1.4-6.5) 10^3/uL Lymph # (Auto) 2.4 (1.2-3.8) 10^3/uL [place] # (Auto) 0.4 (0.3-0.8) 10^3/uL Eos # (Auto) 0.0 (0.0-0.7) 10^3/uL Baso # (Auto) 0.0 (0.0-0.1) 10^3/uL Abs Immat Gran (auto) 0.01 (0.00-0.03) 10^3/uL Imm/Tot Granulo (auto) 0.1 (0.0-0.5) % Sodium 137 (136-145) mmol/L Potassium 3.4 L (3.5-5.1) mmol/L Chloride 101 (98-107) mmol/L Carbon Dioxide 28.9 (21.0-32.0) mmol/L Anion Gap 10.5 BUN 9.0 (7.0-18.0) mg/dL Creatinine 0.73 (0.55-1.02) mg/dL Est GFR ( Amer) >60 (>=60 mL/min/1.73m^2) Est GFR (Non-Af Amer) >60 (>=60 mL/min/1.73m^2) BUN/Creatinine Ratio 12.3 Glucose 72 L (74-106) mg/dL Calcium 9.1 (8.5-10.1) mg/dL Magnesium 2.1 (1.8-2.4) mg/dL Total Bilirubin 0.3 (0.2-1.0) mg/dL AST 12 L (15-37) U/L ALT 21 (14-59) U/L Alkaline Phosphatase 63 (46-116) U/L Total Protein 8.7 H (6.4-8.2) g/dL Albumin 4.4 (3.4-5.0) g/dL Globulin 4.3 g/dL Albumin/Globulin Ratio 1.0 Lipase 23.0 (16.0-77.0) U/L Urine Color Yellow (YELLOW) Urine Clarity Clear (CLEAR) Urine pH 5.5 (5.0-9.0) Ur Specific [place] >=1.030 A (1.005-1.025) Urine Protein Trace (NEG/TRACE) mg/dL Urine Glucose (UA) Negative (NEGATIVE) mg/dL Urine Ketones Negative (NEGATIVE) mg/dL Urine Occult Blood Trace-i (NEGATIVE) Urine Nitrite Negative (NEGATIVE) Urine Bilirubin Negative (NEGATIVE) Urine Urobilinogen 1.0 (0.2-1.0) EU/dL Ur Leukocyte Esterase Negative (NEGATIVE) Urine RBC 0-2 (0-2) #/HPF Urine WBC 0-2 A (NONE SEEN) #/HPF Ur Squamous Epith Cells Few A (NONE/RARE) #/LPF Urine Crystals None seen (None Seen) #/HPF Urine Bacteria Trace A (NONE SEEN) #/HPF Urine Casts None seen (NONE SEEN) #/LPF Urine Mucus Small A (NONE SEEN) Ur Culture Indicated? No Imaging Data CT Abd/pelvis, US Pelvis: Attestation: I have reviewed the pertinent imaging results. Radiologist's impression: CT abdomen pelvis imaging, per radiologist: Impression: No acute abnormality seen Ultrasound pelvis imaging, per radiologist: Impression: Mildly complex left ovarian cyst, potential hemorrhagic cyst. Follow-up is recommended due to the limitation of the exam Discharge Plan Discharge Stand Alone Forms: Work/School Release Chief Complaint: Abdominal Pain Clinical Impression: Lower abdominal pain Ovarian cyst Qualifiers: Laterality: right Qualified Code(s): N83.201 - Unspecified ovarian cyst, right side Nausea & vomiting Qualifiers: Vomiting type: unspecified Qualified Code(s): R11.2 - Nausea with vomiting, unspecified Patient Disposition: Home, Self-Care Time of Disposition Decision: 18:28 Condition: Good Mode of Transportation: Private Vehicle Prescriptions / Home Meds: New hydrocodone-acetaminophen 5-325 mg tablet 1 tab PO Q8H PRN (Reason: pain) 3 Days Qty: 8 0RF ibuprofen 600 mg tablet 600 mg PO Q8H PRN (Reason: pain) Qty: 20 0RF ondansetron 4 mg tablet,disintegrating 4 mg PO Q8H PRN (Reason: nausea and vomiting) Qty: 10 0RF No Action venlafaxine 75 mg capsule,extended release 24hr 75 mg PO DAILY Print Language: Syriac Instructions: Ovarian Cyst (ED), Abdominal Pain (ED) Referrals: MICHAEL BAINS [Physician] - 08/29/24 Discharge Date/Time: 08/28/24 18:54
[2024-08-28] MEDS: MORPHINE SULFATE 4 MG/ML VIAL IV ×2 (15:11→16:00)
[2024-08-28] MEDS: ONDANSETRON PF 4 MG/2 ML VIAL IV (15:11)
[2024-08-28] MEDS: KETOROLAC TROMETHAMINE 30 MG/ML VIAL 15 MG IVP (15:11)
[2024-08-28] MEDS: 0.9 % SODIUM CHLORIDE 1,000 ML 999 ML IV (15:12)
[2024-08-28 15:15] LABS: Basophils Percent Auto 0.3 % (0.2-2.0); Eosinophils Percent Auto 0.4 % (0.9-7.0); Hematocrit 39.6 % (36.0-48.0); Hemoglobin 12.7 g/dL (12.0-16.0); Immature Granulocytes Abs Auto 0.01 10^3/uL (0.00-0.03); Immature Granulocytes Pct Auto 0.1 % (0.0-0.5); Lymphocytes Absolute Auto 2.4 10^3/uL (1.2-3.8); Lymphocytes Percent Auto 29.9 % (20.5-60.0); Mean Corpuscular HGB Conc 32.1 g/dL (29.9-35.2); Mean Corpuscular Hemoglobin 28.2 pg (26.7-34.0); Mean Corpuscular Volume 87.8 fL (81.0-99.0); Mean Platelet Volume 9.9 fL (9.5-13.5); Monocytes Absolute Auto 0.4 10^3/uL (0.3-0.8); Monocytes Percent Auto 5.1 % (1.7-12.0); Neutrophils Absolute Auto 5.1 10^3/uL (1.4-6.5); Neutrophils Percent Auto 64.2 % (43.0-75.0); Platelet Count 270 10^3/uL (150-450); Red Blood Count 4.51 10^6/uL (4.20-5.40); Red Cell Distribution Width 13.9 % (11.0-15.0); White Blood Count 7.9 10^3/uL (4.0-11.0)
[2024-08-28 15:15] LABS: Bilirubin Urine NEGATIVE (NEGATIVE); Blood Urine TRACE-I (NEGATIVE); Clarity Urine CLEAR (CLEAR); Color Urine YELLOW (YELLOW); Glucose Urine UA NEGATIVE (NEGATIVE); Ketones Urine NEGATIVE (NEGATIVE); Leukocyte Esterase Urine NEGATIVE (NEGATIVE); Nitrite Urine NEGATIVE (NEGATIVE); Protein Urine TRACE mg/dL (NEG/TRACE); Specific Gravity Urine >=1.030 (1.005-1.025); pH Urine 5.5 (5.0-9.0)
[2024-08-28 15:27] LABS: Bacteria Urine TRACE #/HPF (NONE SEEN); Cast Seen? NONE SEEN #/LPF (NONE SEEN); Crystals Seen? None Seen #/HPF (None Seen); Mucus Urine SMALL (NONE SEEN); RBC Urine 0-2 #/HPF (0-2); Squamous Epithelial Cell Urine FEW #/LPF (NONE/RARE); Urine Culture Indicated NO; WBC Urine 0-2 #/HPF (NONE SEEN)
[2024-08-28 15:31] LABS: Alanine Aminotransferase 21 U/L (14-59); Albumin Level 4.4 g/dL (3.4-5.0); Alkaline Phosphatase 63 U/L (46-116); Anion Gap 10.5; Aspartate Amino Transferase 12 U/L (15-37); BUN Creatinine Ratio 12.3; Bilirubin Total 0.3 mg/dL (0.2-1.0); Calcium 9.1 mg/dL (8.5-10.1); Carbon Dioxide 28.9 mmol/L (21.0-32.0); Chloride 101 mmol/L (98-107); Estimated GFR (African America >60 (>=60 mL/min/1.73m^2); Estimated GFR (Non-African Ame >60 (>=60 mL/min/1.73m^2); Globulin 4.3 g/dL; Glucose 72 mg/dL (74-106); Magnesium 2.1 mg/dL (1.8-2.4); Potassium 3.4 mmol/L (3.5-5.1); Sodium 137 mmol/L (136-145); Total Protein 8.7 g/dL (6.4-8.2)
[2024-08-28] MEDS: FENTANYL CITRATE/PF 100 MCG/2 ML VIAL 50 MCG IV (17:01)
[2024-08-28 18:38] VITALS: BP 114/74; PULSE 72; O2SAT 100
== END 2024-08-28 18:54 | disposition home or self-care (01) ==
PROVIDERS: Physician Assistant; Emergency Provider Emergency Medicine
DX: R10.30 Lower abdominal pain, unspecified (principal); R11.2 Nausea with vomiting, unspecified; N83.292 Other ovarian cyst, left side; Z90.711 Acquired absence of uterus with remaining cervical stump; Z90.49 Acquired absence of other specified parts of digestive tract
CPT/HCPCS: 36415; 74177; 76830; 80053; 81001; 83690; 83735; 85025; 96374; 96375; 96376; 99285; J1885; J2270; J2405; J3010

== ENCOUNTER 2024-09-10 13:35 | Emergency (ER) | payer OTHER, SELFPAY ==
[2024-09-10] VITALS (16 sets, daily range): BP systolic 88–123; BP diastolic 52–83; PULSE 87; TEMP 36.9; O2SAT 95–99; BMI 27.1
--- NOTE | 2024-09-10 13:57 | ED.GENADUL1 ---
HPI HPI - General Adult General Chief complaint: Abdominal Pain Stated complaint: ABDOMINAL PAIN Time Seen by Provider: 09/10/24 13:36 Source: patient Mode of arrival: ambulance Limitations: no limitations History of Present Illness HPI narrative: Patient presents by ambulance for evaluation and treatment of severe lower abdominal pain. She underwent abdominal hysterectomy and bilateral salpingectomy in March of last year. He has been experiencing pain since then. She has had a number of ER evaluations. Since then she has switched her information security consultant and sees another 1 at [facility] whom she last saw 2 months ago and has another appointment scheduled in next month. She states that she may possibly have exploratory laparoscopy done to check for hernia in the near future. She has been taking ibuprofen for pain without much relief. She does not report any infectious symptoms. Patient was evaluated in this ED 2-1/2 weeks ago and ultrasound did not report ovarian torsion. It showed a mildly complex left ovarian cyst potentially hemorrhagic cyst. CT scan of the abdomen was also similarly pretty nondiagnostic. Related Data Home Medications ?Medication ?Instructions ?Recorded ?Confirmed venlafaxine 75 mg capsule,extended 75 mg PO DAILY 08/28/24 08/28/24 release 24 hr Previous Rx's ?Medication ?Instructions ?Recorded hydrocodone 5 mg-acetaminophen 325 1 tab PO Q8H PRN pain 3 days #8 08/28/24 mg tablet tabs ibuprofen 600 mg tablet 600 mg PO Q8H PRN pain #20 tabs 08/28/24 ondansetron 4 mg disintegrating 4 mg PO Q8H PRN nausea and 08/28/24 tablet vomiting #10 tabs hydrocodone 5 mg-acetaminophen 325 1 tab PO Q8H PRN pain #20 tabs 09/10/24 mg tablet ondansetron 4 mg disintegrating 4 mg PO Q6H PRN nausea and 09/10/24 tablet vomiting #10 tabs polyethylene glycol 3350 17 17 g PO DAILY PRN constipation 09/10/24 gram/dose oral powder (Miralax) #510 grams Allergies Allergy/AdvReac Type Severity Reaction Status Date / Time chlorpheniramine (From Allergy Severe Swelling Verified 09/10/24 13:39 Triaminic Cold and Cough) of Lip/Tongue/Throat dextromethorphan (From Allergy Severe Swelling Verified 09/10/24 13:39 Triaminic Cold and Cough) of Lip/Tongue/Throat pseudoephedrine (From Allergy Severe Swelling Verified 09/10/24 13:39 Triaminic Cold and Cough) of Lip/Tongue/Throat Opioid HPI Opioid Management Most Recent Opioid Data: Last Pain Scale 8 06/24/24 08:51 06/24/24 Review of Systems ROS Status of ROS 10 or more systems reviewed and unremarkable except as noted in history and below PFSH PFSH Surgical History History of appendectomy ?Z90.49 - Acquired absence of other specified parts of digestive tract (ICD-10) History of removal of ovarian cyst ?Z98.890 - Other specified postprocedural states (ICD-10) ?Z87.42 - Personal history of other diseases of the female genital tract (ICD-10) History of hysterectomy ?Z90.710 - Acquired absence of both cervix and uterus (ICD-10) Social History Little interest or pleasure in doing things: not at all Feeling down, depressed, or hopeless: not at all Exam Narrative Exam Narrative: Patient appears in acute distress due to pain. Vital signs are stable and as documented. HEENT exam is normal to inspection. Neck is supple. Lung sounds are clear to auscultation bilaterally with good air entry. Heart has regular rate and rhythm. Abdomen is soft and mildly protuberant. He is diffusely tender across the lower abdomen with guarding. No masses are felt. She does not have lower extremity swelling or calf tenderness. Skin is warm and dry. Speech and mentation are clear and intact. There is no facial asymmetry. She moves all extremities actively. Constitutional Vital Signs, click to edit/add: Last Vital Signs Temp 98.5 F 09/10/24 13:36 Pulse 87 09/10/24 13:36 Resp 18 09/10/24 13:36 BP 99/64 09/10/24 15:31 Pulse Ox 97 09/10/24 15:40 O2 Del Method Room Air 09/10/24 13:36 Course Vital Signs Vital signs: Vital Signs Temperature 98.5 F 09/10/24 13:36 Pulse Rate 87 09/10/24 13:36 Respiratory Rate 18 09/10/24 13:36 Blood Pressure 88/52 L 09/10/24 13:36 Pulse Oximetry 98 09/10/24 13:36 Oxygen Delivery Method Room Air 09/10/24 13:36 Temperature 98.5 F 09/10/24 13:36 Pulse Rate 87 09/10/24 13:36 Respiratory Rate 18 09/10/24 13:36 Blood Pressure 99/64 09/10/24 15:31 Pulse Oximetry 97 09/10/24 15:40 Oxygen Delivery Method Room Air 09/10/24 13:36 Medical Decision Making MDM Narrative Medical decision making narrative: Patient presents with lower abdominal pain that she has had since her hysterectomy in March of last year. The pain that she is experiencing is no different from what she has had or along. She has had recent imaging which was not revealing of any acute surgical condition. Patient has a normal white count today and a normal hemoglobin. Her pain is treated with IV Dilaudid to the point of relief and she is discharged with a prescription for [place], Zofran and MiraLAX. She has been able to advance her appointment with her information security consultant for 17 September and is to follow-up with him for further management. She may return anytime for worsening symptoms. Lab Data Labs: Lab Results 09/10/24 Range/Units 14:21 WBC 5.0 (4.0-11.0) 10^3/uL RBC 4.31 (4.20-5.40) 10^6/uL Hgb 12.3 (12.0-16.0) g/dL Hct 37.7 (36.0-48.0) % MCV 87.5 (81.0-99.0) fL MCH 28.5 (26.7-34.0) pg MCHC 32.6 (29.9-35.2) g/dL RDW 13.6 (11.0-15.0) % Plt Count 196 (150-450) 10^3/uL MPV 10.1 (9.5-13.5) fL Neut % (Auto) 54.5 (43.0-75.0) % Lymph % (Auto) 36.1 (20.5-60.0) % [place] % (Auto) 7.6 (1.7-12.0) % Eos % (Auto) 1.0 (0.9-7.0) % Baso % (Auto) 0.6 (0.2-2.0) % Neut # (Auto) 2.7 (1.4-6.5) 10^3/uL Lymph # (Auto) 1.8 (1.2-3.8) 10^3/uL [place] # (Auto) 0.4 (0.3-0.8) 10^3/uL Eos # (Auto) 0.1 (0.0-0.7) 10^3/uL Baso # (Auto) 0.0 (0.0-0.1) 10^3/uL Abs Immat Gran (auto) 0.01 (0.00-0.03) 10^3/uL Imm/Tot Granulo (auto) 0.2 (0.0-0.5) % Sodium 139 (136-145) mmol/L Potassium 3.8 (3.5-5.1) mmol/L Chloride 106 (98-107) mmol/L Carbon Dioxide 27.5 (21.0-32.0) mmol/L Anion Gap 9.3 BUN 8.0 (7.0-18.0) mg/dL Creatinine 0.64 (0.55-1.02) mg/dL Est GFR ( Amer) >60 (>=60 mL/min/1.73m^2) Est GFR (Non-Af Amer) >60 (>=60 mL/min/1.73m^2) BUN/Creatinine Ratio 12.5 Glucose 87 (74-106) mg/dL Calcium 8.8 (8.5-10.1) mg/dL Total Bilirubin 0.2 (0.2-1.0) mg/dL AST 12 L (15-37) U/L ALT 16 (14-59) U/L Alkaline Phosphatase 59 (46-116) U/L Total Protein 7.4 (6.4-8.2) g/dL Albumin 3.9 (3.4-5.0) g/dL Globulin 3.5 g/dL Albumin/Globulin Ratio 1.1 Lipase 29.0 (16.0-77.0) U/L Discharge Plan Discharge Stand Alone Forms: Work/School Release Chief Complaint: Abdominal Pain Clinical Impression: Lower abdominal pain Patient Disposition: Home, Self-Care Time of Disposition Decision: 15:45 Condition: Fair Mode of Transportation: Private Vehicle Prescriptions / Home Meds: New ondansetron 4 mg tablet,disintegrating 4 mg PO Q6H PRN (Reason: nausea and vomiting) Qty: 10 0RF hydrocodone-acetaminophen 5-325 mg tablet 1 tab PO Q8H PRN (Reason: pain) Qty: 20 0RF polyethylene glycol 3350 [Miralax] 17 gram/dose powder 17 g PO DAILY PRN (Reason: constipation) Qty: 510 0RF No Action venlafaxine 75 mg capsule,extended release 24hr 75 mg PO DAILY hydrocodone-acetaminophen 5-325 mg tablet 1 tab PO Q8H PRN (Reason: pain) 3 Days Qty: 8 0RF ibuprofen 600 mg tablet 600 mg PO Q8H PRN (Reason: pain) Qty: 20 0RF ondansetron 4 mg tablet,disintegrating 4 mg PO Q8H PRN (Reason: nausea and vomiting) Qty: 10 0RF Print Language: Macanese Instructions: Abdominal Pain (ED) Additional Instructions: Follow-up with your information security consultant on September 17 as scheduled. Return for worsening symptoms. Referrals: Physician,Non-Staff, MD [Primary Care Provider] - 1 week
[2024-09-10] MEDS: 0.9 % SODIUM CHLORIDE 1,000 ML 999 ML IV (14:13)
[2024-09-10] MEDS: HYDROMORPHONE HCL 1 MG/ML CARTRIDGE IVP (14:14)
[2024-09-10] MEDS: KETOROLAC TROMETHAMINE 30 MG/ML VIAL 15 MG IVP (14:20)
[2024-09-10] MEDS: ONDANSETRON PF 4 MG/2 ML VIAL IV (14:20)
[2024-09-10 14:36] LABS: Basophils Percent Auto 0.6 % (0.2-2.0); Eosinophils Absolute Auto 0.1 10^3/uL (0.0-0.7); Hematocrit 37.7 % (36.0-48.0); Hemoglobin 12.3 g/dL (12.0-16.0); Immature Granulocytes Abs Auto 0.01 10^3/uL (0.00-0.03); Immature Granulocytes Pct Auto 0.2 % (0.0-0.5); Lymphocytes Absolute Auto 1.8 10^3/uL (1.2-3.8); Lymphocytes Percent Auto 36.1 % (20.5-60.0); Mean Corpuscular HGB Conc 32.6 g/dL (29.9-35.2); Mean Corpuscular Hemoglobin 28.5 pg (26.7-34.0); Mean Corpuscular Volume 87.5 fL (81.0-99.0); Mean Platelet Volume 10.1 fL (9.5-13.5); Monocytes Absolute Auto 0.4 10^3/uL (0.3-0.8); Monocytes Percent Auto 7.6 % (1.7-12.0); Neutrophils Absolute Auto 2.7 10^3/uL (1.4-6.5); Neutrophils Percent Auto 54.5 % (43.0-75.0); Platelet Count 196 10^3/uL (150-450); Red Blood Count 4.31 10^6/uL (4.20-5.40); Red Cell Distribution Width 13.6 % (11.0-15.0)
[2024-09-10 15:00] LABS: Alanine Aminotransferase 16 U/L (14-59); Albumin Globulin Ratio 1.1; Albumin Level 3.9 g/dL (3.4-5.0); Alkaline Phosphatase 59 U/L (46-116); Anion Gap 9.3; Aspartate Amino Transferase 12 U/L (15-37); BUN Creatinine Ratio 12.5; Bilirubin Total 0.2 mg/dL (0.2-1.0); Calcium 8.8 mg/dL (8.5-10.1); Carbon Dioxide 27.5 mmol/L (21.0-32.0); Chloride 106 mmol/L (98-107); Estimated GFR (African America >60 (>=60 mL/min/1.73m^2); Estimated GFR (Non-African Ame >60 (>=60 mL/min/1.73m^2); Globulin 3.5 g/dL; Glucose 87 mg/dL (74-106); Potassium 3.8 mmol/L (3.5-5.1); Sodium 139 mmol/L (136-145); Total Protein 7.4 g/dL (6.4-8.2)
[2024-09-10] MEDS: HYDROMORPHONE HCL 0.5 MG/0.5 ML SYRINGE IV (15:13)
== END 2024-09-10 16:06 | disposition home or self-care (01) ==
PROVIDERS: Emergency Provider Emergency Medicine
DX: R10.30 Lower abdominal pain, unspecified (principal); Z90.710 Acquired absence of both cervix and uterus; Z90.79 Acquired absence of other genital organ(s); Z90.49 Acquired absence of other specified parts of digestive tract
CPT/HCPCS: 36415; 80053; 83690; 85025; 96374; 96375; 96376; 99285; J1171; J1885; J2405

== ENCOUNTER 2024-09-28 18:06 | Emergency (ER) | payer OTHER, SELFPAY ==
[2024-09-28 18:09] VITALS: BP 141/84; PULSE 93; TEMP 36.8; O2SAT 100; BMI 25.9
--- OUTSIDE RECORDS SUMMARY | 2024-09-28 18:14 | XMS_ITS | CCD ---
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 Name Role Phone Denzel Thomas Unavailable MaritzaHernan baker Unavailable NO FAMILY, PHYSICIAN Primary Care Provider Unava ilable DO Juany Oropeza Attending Provider DO Jonathan Monahan Attending Provider [phone] NO FAMILY, PHYSICIAN Primary Care Provider Unava ilable DO Juany Oropeza Attending Provider MD Ar Gurrola Attending Provider MD Ar Gurrola Primary Care Provider MD Melinda Beltre P Attending Provider NO FAMILY, PHYSICIAN Primary Care Provider Unava ilable DO Jonathan Monahan Attending Provider [phone] Viscgonzalez, DO Castillo Admit Provider MD Ar Gurrola Attending Provider NO FAMILY, PHYSICIAN Primary Care Provider Unava ilable MD Ar Gurrola Primary Care Provider [phone] MD Melinda Beltre P Attending Provider DO Juany Oropeza Attending Provider [phone] DO Jonathan Monahan Admit Provider DO Jonathan Monahan Attending Provider Lauryn Mckenna APRN, CNP Primary Care Pro vider LAURYN HUANG Primary Care Unavailable KISHA RANGEL Attending Unavailable KISHA RANGEL Admitting Unavailable Provider, None Primary Care Unavailable Printy, Ar J Admitting Unavailable Ar Gurrola J Attending Unavailable Provider, None Primary Care Unavailable Stalter, Anjel Admitting Unavailable Stalter, Anjel Attending Unavailable Stalter, Anjel Attending Unavailable Provider, None Primary Care Unavailable Stalter, Anjel Admitting Unavailable Provider, None Primary Care Unavailable Omley, Luis Alfredo H Admitting Unavailable Omley, Luis Alfredo H Attending Unavailable Provider, None Primary Care Unavailable Stalter, Anjel Admitting Unavailable Stalter, Anjel Attending Unavailable Provider, None Primary Care Unavailable Luis Alfredo Mitchell Admitting Unavaila ble Luis Alfredo Mitchell Attending Unavaila ble SantillanJuan miranda Admitting Unavailable SantillanJuan Attending Unavailable Provider, None Primary Care Unavailable Provider, None Primary Care Unavailable ELA Friend Admitting Unavailable ELA Friend Attending Unavailable NO FAMILY, PHYSICIAN Primary Care Provider Unava ilable HATTIE Quiñones Emergency Provider Ar Gurrola Attending Unavailable Galileo Ar Admitting Unavailable NO FAMILY, PHYSICIAN Primary Care Unavailable Visci, Jonathan Attending Unavailable NO FAMILY, PHYSICIAN Primary Care Unavailable Visci, Jonathan Admitting Unavailable Printamadeo, Ar Primary Care Unavailable Beltre, Penola P Admitting Unavailable Alexsander, Penola P Attending Unavailable Ar Gurrola Attending Unavailable Printy, Ar Admitting Unavailable NO FAMILY, PHYSICIAN Primary Care Unavailable Beltre, Penola P Admitting Unavailable Beltre, Penola P Attending Unavailable NO FAMILY, PHYSICIAN Primary Care Unavailable Nataprawira, Juany Admitting Unavailable Nataprbonyra, Juany Attending Unavailable NO FAMILY, PHYSICIAN Primary Care Unavailable Nataprawira, Juany Admitting Unavailable Nataprawira, Juany Attending Unavailable NO FAMILY, PHYSICIAN Primary Care Unavailable Visci, Jonathan Admitting Unavailable Visci, Jonathan Attending Unavailable NO FAMILY, PHYSICIAN Primary Care Unavailable Nataprawira, Juany Admitting Unavailable Nataprawira, Juany Attending Unavailable NO FAMILY, PHYSICIAN Primary Care Unavailable Visci, Jonathan Attending Unavailable NO FAMILY, PHYSICIAN Primary Care Unavailable Visci, Jonathan Admitting Unavailable Nikhil Quiñones Admitting Unavailable Nikhil Quiñones Attending Unavailable NO FAMILY, PHYSICIAN Primary Care Unavailable Printamadeo, Ar Admitting Unavailable Ar Gurrola Attending Unavailable JOSUE DAVENPORT Referring Unavailable ROBBIN COLEMAN Referring Unavailable ROBBIN COLEMAN Attending Unavailable REINA, LAURYN A Referring Unavailable REINA, LAURYN A Primary Care Unavailable REINA, LAURYN A Referring Unavailable REINA, LAURYN A Primary Care Unavailable Reina CLINICAL QUALITY MANAGER - ENTRY LEVEL PARALEGAL, Lauryn A Primary Care Pro vider REINA, LAURYN A Primary Care Unavailable CARISA LINN Attending Unavailable LAKHWINDER WILD Admitting Unavailable REINA, LAURYN A Referring Unavailable REINA, LAURYN A Primary Care Unavailable REINA, LAURYN A Referring Unavailable REINA, LAURYN A Primary Care Unavailable NO PCP, NO PCP Primary Care Unavailable ARI DORMAN Attending Unavailable MARNIE ROSE Referring Unavailable NO PCP, NO PCP Primary Care Unavailable Unallocated , Noms Provider Primary Care Provi lala Ar Gurrola MD Unavailable [phone] PRUDENCE WONG Attending Unavailable REINA, LAURYN A Primary Care Unavailable REINA, LAURYN A Primary Care Unavailable NAOMI BENITO Attending Unavailable SAGE FUNES Attending Unavailable REINA, LAURYN A Primary Care Unavailable SHEREEN GIRALDO Attending Unavailable REINA, LAURYN A Primary Care Unavailable ARIANA DAIGLE Attending Unavailable REINA, LAURYN A Primary Care Unavailable REINA, LAURYN A Primary Care Unavailable NICOLETTE WYMAN Admitting Unavailable NICOLETTE WYMAN Attending Unavailable CRISTIANO SINGH Consulting Unavailable NIKI BOWSER Consulting Unavailable MARY ELLEN SORIANO Consulting Unavailable RADHA LA, MICKIE F Admitting Unavail able RADHA LA, MICKIE F Attending Unavail able REINA, LAURYN A Primary Care Unavailable RADHA LA, MICKIE F Referring Unavail able RADHA LA, MICKIE F DO Attending Unav ailable REINA, LAURYN A Primary Care Unavailable RADHA LA, MICKIE F Referring Unavail able REINA, LAURYN A Primary Care Unavailable ALEX COWAN Attending Unavailable REINA, LAURYN A Primary Care Unavailable REINA, LAURYN A Primary Care Unavailable REINA, LAURYN A Primary Care Unavailable ARIANA DAIGLE Attending Unavailable REINA, LAURYN A Primary Care Unavailable NAOMI BENITO Attending Unavailable Reina CLINICAL QUALITY MANAGER-Lauryn LIM Primary Care Provi lala No Pcp, No Pcp Primary Care Provider Unavailabl e NO PCP, NO PCP Primary Care Unavailable SHIRLEY BRICE Attending Unavailable AR GURROLA Attending Unavailable AR GURROLA Attending Unavailable AR GURROLA Attending Unavailable AR GURROLA Attending Unavailable AR GURROLA Attending Unavailable Allergies Allergy Classification Reported Allergen(s) Allergy Type Date of Onset Reaction(s) Facility (20 sources) Chlorpheniramine; Translations: [chlorpheniramine] Drug Allergy 06-21-19 Anaphylaxis, Other (See Comments), [facility] (20 sources) Dextromethorphan; Translations: [dextromethorphan] Drug Allergy 06-21-19 Other (See Comments), [facility] (20 sources) Pseudoephedrine; Translations: [pseudoephedrine] Drug Allergy 06-21-19 Other (See Comments), [facility] (20 sources) Acetaminophen / Chlorpheniramine / Dextromethorphan Drug Allergy 11-19-19 Angioedema, Swelling, Anaphylaxis [facility] (1 source) Chlorpheniramine; Translations: [Triaminic Allergy] Drug Allergy [facility] Repository (1 source) chlorpheniramine/dextr omethorphan/PSE; Translations: [chlorpheniramine/dext romethorphan/PSE] Propensity to adverse reactions to drug (disorder) [facility] Repository (2 sources) Chlorpheniramine / Phenylpropanolamine Drug Allergy 01-08-20 24 Anaphylaxis [facility] (1 source) OTHER; Translations: [OTHER] Propensity to adverse reactions (disorder) 01-13-20 [facility] Repository (3 sources) [id number] MINOPHEN; Translations: [[id number] AMINOPHEN] Propensity to adverse reactions to drug (disorder) 11-19-19 17 [facility] Repository NEGATED: Highlighted row has been ruled out! (7 sources) Other Propensity to adverse reactions 01-13-20 24 Other (See Comments) [facility] Medications Current Medications Medication Drug Class(es) Dates Sig (Normalized) Sig (Original) acetaminophen 500 mg oral tablet (20 sources) Start: 02-25-2023 take 2 tablets by mouth every six hours as needed for pain Acetaminophen 500 mg Tablet Active 1000 MG PO Q6H as needed for Pain, Moderate February 24, 2023 11:00pm Start: 02-25-2023 take 1000 mg by mout h every six hours Acetaminophen Active 1000 MG PO Q6H February 25, 2023 12:00am Start: 02-25-2023 take 1 tablet by kristel th every six hours Acetaminophen (Tylenol Ex Str Rapid Release) 500 mg Tablet Active 500 MG PO Q6H February 25, 2023 12:00am Start: 11-03-2022 End: 01-26-2023 Acetaminophen (Tylenol Ex St r Rapid Release) 500 mg Tablet Discontinued TABLET November 02, 2022 11:00pm January 26, 2023 9:37pm Start: 11-30-2020 End: 07-10-2024 take 2 tablets by mouth every eight hours acetaminophen (TYLENOL EXTRA STRENGTH) 500 mg tablet Take 2 tablets (1,000 mg total) by mouth every 8 (eight) hours. 30 tablet 01/18/2024 Active acetaminophen 325 mg / oxyCODONE hydrochloride 5 mg oral tablet (4 sources) Opioid Agonist Start: 04-16-2024 End: 04-19-2024 oxyCODONE-acetaminophen (PERCOCET) 5-325 MG per tablet Indications: Pneumoperitoneum Take 1 tablet by mouth every 4 hours as needed for Pain for up to 3 days. Max Daily Amount: 6 tablets 18 tablet 04/16/2024 04/19/2024 Active Start: 04-13-2024 oxyCODONE-acet aminophen (PERCOCET) 5-325 MG per tablet 1 tablet Start: 04-10-2024 End: 04-10-2024 take 1 tablet by mouth every twenty-four hours 1 tablet, Oral, ONCE, 1 dose, On Mon04/10/24 at 1830, Maximum dose of acetaminophen is 4000 mg from all sources in 24 hours. Start: 04-02-2024 End: 04-05-2024 oxyCODONE-acetaminophen (PER COCET) 5-325 MG per tablet Indications: Right ovarian cyst Take 1 tablet by mouth every 6 hours as needed for Pain for up to 3 days. Intended supply: 3 days. Take lowest dose possible to manage pain Max Daily Amount: 4 tablets 10 tablet 04/02/2024 04/05/2024 Active [id number] 200 actuat albuterol 0.09 mg/actuat metered dose inhaler (1 source) beta2-Adrenergic Agonist Start: 08-15-2023 take 2 puff(s) by inhalation four times daily as needed for wheezing albuterol sulfate HFA (VENTOLIN HFA) 108 (90 Base) MCG/ACT inhaler Inhale 2 puffs into the lungs 4 times daily as needed for Wheezing or Shortness of Breath 54 g 1 08/15/2023 Active azelastine hydrochloride 0.137 mg/actuat metered dose nasal spray (1 source) Histamine-1 Receptor Antagonist Start: 08-15-2023 take 2 spray(s) nasal route twice daily azelastine (ASTELIN) 0.1 % nasal spray 2 sprays by Nasal route 2 times daily Use in each nostril as directed 60 mL 0 08/15/2023 Active calcium chloride 0.0014 meq/ml / potassium chloride 0.004 meq/ml / sodium chloride 0.103 meq/ml / sodium lactate 0.028 meq/ml injectable solution (1 source) Start: 11-20-2023 lactated ringers IV soln infusion docusate sodium 100 mg oral capsule (2 sources) Start: 04-14-2024 take 1 capsule by mouth twice daily as needed for constipation docusate sodium (COLACE, DULCOLAX) 100 MG CAPS Take 100 mg by mouth 2 times daily as needed for Constipation 30 capsule 04/16/2024 Active famotidine 20 mg oral tablet (2 sources) Histamine-2 Receptor Antagonist Start: 07-12-2023 End: 07-26-2023 take 1 tablet by mouth twice daily famotidine (PEPCID) 20 MG tablet Take 1 tablet by mouth 2 times daily for 14 days 28 tablet 0 07/12/2023 Active ferrous sulfate 325 mg oral tablet (4 sources) Start: 02-26-2023 take 1 tablet by mouth once daily Ferrous Sulfate 325 mg (65 mg iron) tablet Active 325 MG PO Daily February 25, 2023 11:00pm gabapentin 300 mg oral capsule (3 sources) Anti-epileptic Agent Start: 04-14-2024 End: 05-16-2024 take 1 capsule by mouth three times daily gabapentin (NEURONTIN) 300 MG capsule Take 1 capsule by mouth 3 times daily for 30 days. 90 capsule 04/16/2024 05/16/2024 Active Start: 04-13-2024 End: 04-14-2024 take 100 mg by mouth three times daily 100 mg, Oral, 3 TIMES DAILY, First dose on 04/13/24 at 0900, Until Discontinued homatropine methylbromide 0.3 mg/ml / HYDROcodone bitartrate 1 mg/ml oral solution (1 source) Opioid Agonist, Cholinergic Muscarinic Agonist Start: 08-15-2023 End: 08-22-2023 HYDROcodone homatropine (HYCODAN) 5-1.5 MG/5ML solution Indications: Viral upper respiratory tract infection Take 5 mLs by mouth 4 times daily as needed (Cough) for up to 7 days. Max Daily Amount: 20 mLs 140 mL 0 08/15/2023 08/22/2023 Active ibuprofen 800 mg oral tablet (20 sources) Nonsteroidal Anti-inflammatory Drug Start: 02-26-2023 take 4 tablets by mouth every twenty-four hours for pain Ibuprofen 600 mg tablet Active 600 MG PO Every 6 hours as needed for pain February 25, 2023 11:00pm do not exceed 4 doses in a 24 hour period Start: 12-08-2021 End: 11-03-2022 take 1 tablet by mouth every six hours as needed for pain Ibuprofen 600 mg tablet Discontinued 600 MG PO Q6H as needed for pain December 07, 2021 11:00pm November 03, 2022 9:37am Start: 11-30-2020 take 1 tablet by kristel th every eight hours ibuprofen (MOTRIN) 800 mg tablet Take 1 tablet (800 mg total) by mouth every 8 (eight) hours. 30 tablet 01/17/2024 Active take 1 tablet by kristel th every six hours as needed for pain ibuprofen (ADVIL;MOTRIN) 800 MG tablet Take 1 tablet by mouth every 6 hours as needed for Pain Active naloxone 0.4 mg in 10 mL sodium chloride syringe (1 source) Start: 11-20-2023 IntraVENous, PRN, Opioid Rev ersal, Starting on 11/20/23 at 1611 PRN if respiratory rate is less than 6/min and patient is difficult to arouse then notify physician STAT. Mix 9 mL of sodium chloride 0.9% with 0.4 mg (1 mL) of naloxone (NARCAN) in 10 mL syringe. (Note: dilution is 0.04 mg/mL) Give 0.08 mg (2 mL of special dilution), slow IV push, repeat up to 0.4 mg (10 mL) or until patient is responsive to physical stimulation and respiratory rate is equal to or greater than 6 breaths/min. Continue to observe, if no response within 3 minutes of administration of 0.4 mg (10 mL) total, repeat dose (0.4 mg as administered previously). Concentration 0.04 mg/mL PACU only nystatin [id number] unt/ml topical cream (6 sources) Polyene Antifungal Start: 01-05-2022 nystatin (MYCOSTATIN) cream Indications: Thrush Apply 1 application topically in the morning and 1 application before bedtime. 30 g 01/05/2022 Active ondansetron (ZOFRAN-ODT) disintegrating tablet 4 mg (1 source) Start: 04-11-2024 ondansetron (ZOFRAN-ODT) disintegrating tablet 4 mg oxyCODONE hydrochloride 5 mg oral tablet (2 sources) Opioid Agonist Start: 01-17-2024 End: 01-20-2024 take 1 tablet by mouth every six hours as needed for pain oxyCODONE (ROXICODONE) 5 mg immediate release tablet Indications: Pelvic abscess in female Take 1 tablet (5 mg total) by mouth every 6 (six) hours as needed for pain for up to 3 days. Max Daily Amount: 20 mg 10 tablet 01/17/2024 01/20/2024 Active Start: 11-20-2023 End: 11-20-2023 oxyCODONE (ROXICODONE) immed iate release tablet 5 mg PARoxetine hydrochloride 10 mg oral tablet (2 sources) Serotonin Reuptake Inhibitor take 3 tablets by mouth once daily in the morning PARoxetine (PAXIL) 10 MG tablet Take 3 tablets by mouth every morning 0 Active polyethylene glycol 3350 [id number] mg powder for oral solution (1 source) Osmotic Laxative Start: predniSONE 20 mg oral tablet (1 source) Start: End: take 2 tablets by mouth once daily predniSONE (DELTASONE) 20 MG tablet Take 2 tablets by mouth daily for 5 days 10 tablet 0 08/15/2023 08/20/2023 Active no122/iron/folic acid ( MULTI ORAL) (6 sources) no122/iron/folic acid ( MULTI ORAL) Take by mouth. Suspended no122/i carisa/folic acid ( MULTI ORAL) Take by mouth. Active sucralfate 100 mg/ml oral suspension (2 sources) Aluminum Complex Start: 07-12-2023 take 10 mL by mouth four times daily sucralfate (CARAFATE) 1 GM/10ML suspension Take 10 mLs by mouth 4 times daily 1200 mL 3 07/12/2023 Active traMADol hydrochloride 50 mg oral tablet (1 source) Opioid Agonist Start: 11-20-2023 End: 11-23-2023 take 1 tablet by mouth every four hours as needed for pain traMADol (ULTRAM) 50 MG tablet Indications: Postoperative pain Take 1 tablet by mouth every 4 hours as needed for Pain for up to 3 days. Intended supply: 3 days. Take lowest dose possible to manage pain Max Daily Amount: 300 mg 10 tablet 0 11/20/2023 11/23/2023 Active 24 hr venlafaxine 75 mg extended release oral tablet (14 sources) Serotonin and Norepinephrine Reuptake Inhibitor Start: 07-22-2024 take 1 capsule by mouth every twenty-four hours Venlafaxine 75 mg capsule,extended release 24hr Active MG PO July 22, 2024 12:00am Start: 04-17-2024 take 1 capsule by mo [facility] once daily at breakfast venlafaxine (EFFEXOR XR) 75 MG extended release capsule Take 1 capsule by mouth daily (with breakfast) 30 capsule 3 04/17/2024 Active Start: 04-14-2024 take 75 mg by mouth once daily at breakfast 75 mg, Oral, DAILY WITH BREAKFAST, First dose on 04/14/24 at 0815, Until Discontinued, Do not crush or break. take 1 capsule by mo [facility] every twenty-four hours at mealtime venlafaxine XR (Effexor XR) 75 MG 24 hr capsule Take 75 mg by mouth in the morning. Take with meals. Active Completed/Discontinued Medications Medication Drug Class(es) Dates Sig (Normalized) Sig (Original) acetaminophen 325 mg / HYDROcodone bitartrate 5 mg oral tablet (5 sources) Opioid Agonist Start: 01-08-2024 End: 07-22-2024 take 1 tablet by mouth every six hours as needed for pain Hydrocodone-Acetami nophen 5-325 mg tablet Discontinued 1 TAB PO Q6H as needed for pain 03 21January 08, 2024 July 22, 2024 12:21pm Start: 01-08-2024 End: 07-10-2024 HYDROcodone-acetaminophen (N orco) 5-325 MG tablet 1 tablet 01/08/2024 07/10/2024 Discontinued (Ineffective) albuterol 0.833 mg/ml / ipratropium bromide 0.167 mg/ml inhalation solution (1 source) Anticholinergic, beta2-Adrenergic Agonist Start: 08-15-2023 End: 08-15-2023 ipratropium 0.5 mg-albuterol 2.5 mg (DUONEB) nebulizer solution 1 Dose ALPRAZolam 0.25 mg oral tablet (1 source) Benzodiazepine Start: 04-14-2024 take 0.25 mg by mouth twice daily as needed 0.25 mg, Oral, 2 TIMES DAILY PRN, Starting on Mon04/14/24 at 0610, Until Discontinued, Anxiety amoxicillin 875 mg / clavulanate 125 mg oral tablet (6 sources) Penicillin-class Antibacterial Start: 01-04-2022 End: 02-15-2024 take 1 tablet by mouth once daily amoxicillin-pot clavulanate (AUGMENTIN) 875-125 mg per tablet Take 1 tablet by mouth once daily. For 10 days, pt never took 01/04/2022 02/15/2024 Discontinued (Therapy completed) benzonatate 100 mg oral capsule (1 source) Non-narcotic Antitussive Start: 08-15-2023 End: 08-15-2023 benzonatate (TESSALON) capsule 200 mg bisacodyl 10 mg rectal suppository (1 source) Stimulant Laxative Start: 04-15-2024 End: 04-15-2024 take 1 dose rectal route once 10 mg, Rectal, ONCE, 1 dose, On 04/15/24 at 0730 ceFAZolin 2000 mg injection (1 source) Cephalosporin Antibacterial Start: 11-20-2023 End: 11-20-2023 ceFAZolin (ANCEF) 2000 mg in 0.9% sodium chloride 100 mL IVPB citalopram 20 mg oral tablet (20 sources) Serotonin Reuptake Inhibitor Start: 06-21-2022 End: 11-03-2022 take 1 tablet by mouth once daily Citalopram 20 mg tablet Discontinued 20 MG PO Daily June 21, 2022 12:00am November 03, 2022 9:38am dexamethasone phosphate 10 mg/ml injectable solution (1 source) Corticosteroid Start: 08-15-2023 End: 08-15-2023 dexAMETHasone (DECADRON) Oral 10 mg dimenhyDRINATE 50 mg oral tablet (1 source) Start: 11-20-2023 End: 11-20-2023 dimenhyDRINATE (DRAMAMINE) tablet 50 mg doxycycline hyclate 100 mg oral capsule (2 sources) Tetracycline-class Drug Start: 01-17-2024 End: 01-28-2024 take 1 capsule by mouth in the morning, then take 1 capsule by mouth at bedtime doxycycline (VIBRAMYCIN) 100 mg capsule Take 1 capsule (100 mg total) by mouth in the morning and 1 capsule (100 mg total) before bedtime. Do all this for 11 days. 22 capsule 01/17/2024 01/28/2024 0.4 ml enoxaparin sodium 100 mg/ml prefilled syringe (2 sources) Low Molecular Weight Heparin Start: 04-11-2024 inject 40 mg by subcutaneous injection once daily 40 mg, SubCUTAneous, DAILY, First dose on Mariajose 04/11/24 at 0900, Until Discontinued, Indication of Use: Prophylaxis-DVT/P E, Administer by deep subCUTAneous injection with pt lying down. Alternate injection sites on abdominal wall. Do not rub site after injection. Check with provider prior to any invasive procedure. Start: 11-20-2023 End: 11-20-2023 enoxaparin (LOVENOX) injecti on 40 mg escitalopram 10 mg oral tablet (7 sources) Serotonin Reuptake Inhibitor Start: 10-31-2023 End: 04-16-2024 take 1 tablet by mouth once daily escitalopram (LEXAPRO) 10 MG tablet Take 1 tablet by mouth daily 30 tablet 10/31/2023 04/16/2024 Discontinued (Stop Taking at Discharge) Ethinyl Estradiol / norgestimate (1 source) Progestin, Estrogen Start: 07-19-2023 End: 08-15-2023 take 1 tablet by mouth once daily norgestimate-ethiny l estradiol (ORTHO TRI-CYCLEN LO) 0.025 MG tablet Indications: DUB (dysfunctional uterine bleeding) , Menorrhagia with irregular cycle Take 1 tablet by mouth daily 28 tablet 11 07/19/2023 08/15/2023 Discontinued (LIST CLEANUP) 2 ml fentaNYL 0.05 mg/ml injection (4 sources) Opioid Agonist Start: 04-11-2024 End: 04-12-2024 25 mcg, IntraVENous, EVERY 2 HOURS PRN, Starting on Mariajose 04/11/24 at 0943, Until 04/12/24 at 0656, Allowed for higher pain score per patient request, If oral and IV narcotics ordered, use oral first and only use IV if oral is ineffective or cannot take oral. Do Not give oral and IV within 1 hour of each other unless specifically ordered. Start: 03-17-2024 End: 03-17-2024 take 1 dose by mouth every hour 25 mcg, IntraVENous, ONCE, 1 dose, On 03/17/24 at 1045, If oral and IV narcotics ordered, use oral first and only use IV if oral is ineffective or cannot take oral. Do Not give oral and IV within 1 hour of each other unless specifically ordered. Start: 11-20-2023 50 mcg, IntraV ENous, EVERY 5 MIN PRN, 2 doses, Starting on 11/20/23 at 1611, Until Discontinued, Pain Severe (7-10) For Phase I. If Phase II oral narcotics have been administered in the last 60 minutes, do not administer IV narcotics unless specifically approved by provider. PACU only Start: 11-20-2023 25 mcg, IntraV ENous, EVERY 5 MIN PRN, 2 doses, Starting on 11/20/23 at 1611, Until Discontinued, Pain Moderate (4-6) For Phase I. If Phase II oral narcotics have been administered in the last 60 minutes, do not administer IV narcotics unless specifically approved by provider. PACU only fluconazole 100 mg oral tablet (6 sources) Azole Antifungal Start: 01-12-2024 End: 07-22-2024 Fluconazole (Diflucan) 100 mg tablet Discontinued 150 MG PO Once 1 January 11, 2024 11:00pm July 22, 2024 12:21pm End: 02-15-2024 take 1 tablet by mouth once fluconazole (DIFLUCAN) 150 mg tablet Take 1 tablet (150 mg total) by mouth once. 02/15/2024 Discontinued (Therapy completed) 500 ml glucose 50 mg/ml / potassium chloride 0.02 meq/ml / sodium chloride 4.5 mg/ml injection (1 source) Start: 04-12-2024 End: 04-15-2024 IntraVENous, at 100 mL/hr, CONTINUOUS, Starting on Mon04/12/24 at 0715, On hold since Mon04/15/2024 at 0621 until manually unheld 0.5 ml HYDROmorphone hydrochloride 1 mg/ml prefilled syringe (1 source) Opioid Agonist Start: 02-07-2024 End: 02-07-2024 take 1 dose by mouth every hour 1 mg, IntraVENous, ONCE, 1 dose, On Mon02/07/24 at 1430, If oral and IV narcotics ordered, use oral first and only use IV if oral is ineffective or cannot take oral. Do Not give oral and IV within 1 hour of each other unless specifically ordered. iopamidol (ISOVUE-370) 76 % injection 75 mL (5 sources) Start: 04-10-2024 End: 04-10-2024 take 1 dose intravenously once 75 mL, IntraVENous, IMG ONCE PRN, 1 dose, Starting on Mon04/10/24 at 1921, Until Mon04/10/24 at 1921, Other Start: 04-02-2024 End: 04-02-2024 take 1 dose intravenously once 75 mL, IntraVENous, IMG ONCE PRN, 1 dose, Starting on Mon04/02/24 at 1222, Until Mon04/02/24 at 1225, Other Start: 03-17-2024 End: 03-17-2024 take 1 dose intravenously once 75 mL, IntraVENous, IMG ONCE PRN, 1 dose, Starting on 03/17/24 at 1046, Until 03/17/24 at 1052, Other Start: 02-07-2024 End: 02-07-2024 take 1 dose intravenously once 75 mL, IntraVENous, IMG ONCE PRN, 1 dose, Starting on Mon02/07/24 at 1203, Until Mon02/07/24 at 1203, Other Start: 02-03-2024 End: 02-03-2024 take 1 dose intravenously once 75 mL, IntraVENous, IMG ONCE PRN, 1 dose, Starting on 02/03/24 at 2130, Until 02/03/24 at 2141, Other 1 ml ketorolac tromethamine 30 mg/ml cartridge (12 sources) Nonsteroidal Anti-inflammatory Drug, Cyclooxygenase Inhibitor Start: 04-11-2024 End: 04-16-2024 30 mg, IntraVENous, EVERY 6 HOURS PRN, Starting on Mariajose 04/11/24 at 0943, Until Tu04/16/24 at 0640, Allowed for higher pain score per patient request, Do not administer for more than 5 days. Start: 04-10-2024 End: 04-10-2024 30 mg, IntraVENous, ONCE, 1 dose, On Mon04/10/24 at 1830, Do not administer for more than 5 days. Start: 04-09-2024 End: 04-09-2024 30 mg, IntraVENous, ONCE, 1 dose, On Mon04/09/24 at 1145, Do not administer for more than 5 days. Start: 02-07-2024 30 mg, IntraVE Nous, ONCE, 1 dose, On Mon02/07/24 at 1200, Do not administer for more than 5 days. Start: 02-04-2024 30 mg, IntraVE Nous, ONCE, 1 dose, On Mon02/04/24 at 0000, Do not administer for more than 5 days. Start: 11-20-2023 End: 11-19-2024 take 1 tablet by mouth every six hours as needed for pain ketorolac (TORADOL) 10 MG tablet Take 1 tablet by mouth every 6 hours as needed for Pain 20 tablet 11/20/2023 04/09/2024 Discontinued (LIST CLEANUP) levalbuterol 0.417 mg/ml inhalation solution (2 sources) beta2-Adrenergic Agonist Start: 07-25-2023 End: 07-25-2023 levalbuterol (XOPENEX) 1.25 MG/3ML nebulizer solution Start: 07-25-2023 levalbuterol ( XOPENEX) nebulizer solution 1.25 mg LORazepam 0.5 mg oral tablet (12 sources) Benzodiazepine Start: 06-21-2022 End: 11-03-2022 take 1 tablet by mouth three times daily as needed for anxiety Lorazepam 0.5 mg tablet Discontinued 0.5 MG PO Three times daily as needed for Anxiety June 21, 2022 12:00am November 03, 2022 9:38am 2 ml metoclopramide 5 mg/ml prefilled syringe (2 sources) Dopamine-2 Receptor Antagonist Start: 04-11-2024 End: 04-11-2024 10 mg, IntraVENous, ONCE PRN, 1 dose, Starting on Mariajose 04/11/24 at 0045, Until Mariajose 04/11/24 at 0120, Nausea, Initial antiemetic therapy., PACU only Start: 11-20-2023 End: 11-21-2023 10 mg, IntraVENous, ONCE PRN , 1 dose, Starting on 11/20/23 at 1611, Until 11/21/23 at 1611, Nausea Initial antiemetic therapy. PACU only metroNIDAZOLE 0.0075 mg/mg vaginal gel (15 sources) Nitroimidazole Antimicrobial Start: 02-08-2024 End: 04-30-2024 metroNIDAZOLE (METROGEL) 0.75 % vaginal gel Place 1 Applicatorful vaginally Twice a Week for 24 doses Start after completing oral medication 140 g 2 02/08/2024 04/09/2024 Discontinued (LIST CLEANUP) Start: 01-17-2024 End: 01-28-2024 take 1 tablet by mouth every twelve hours metroNIDAZOLE (FLAGYL) 500 mg tablet Take 1 tablet (500 mg total) by mouth every 12 (twelve) hours for 11 days. 22 tablet 01/17/2024 01/28/2024 Start: 01-12-2024 End: 02-13-2024 take 1 tablet by mouth twice daily metroNIDAZOLE (FLAGYL) 500 MG tablet Take 1 tablet by mouth 2 times daily for 7 days 14 tablet 02/06/2024 02/13/2024 Active End: 02-15-2024 take 1 tablet by mouth three times daily metroNIDAZOLE (FLAGYL) 500 mg tablet Take 1 tablet (500 mg total) by mouth 3 (three) times a day. 02/15/2024 Discontinued (Therapy completed) 1 ml morphine sulfate 2 mg/ml cartridge (5 sources) Opioid Agonist Start: 04-11-2024 End: 04-12-2024 take 1 mg by mouth every two hours as needed for pain 1 mg, IntraVENous, EVERY 2 HOURS PRN, Starting on Mariajose 04/11/24 at 0145, Until 04/12/24 at 0137, Pain Mild (1-3), Pain Moderate (4-6), If oral and IV narcotics ordered, use oral first and only use IV if oral is ineffective or cannot take oral. Do Not give oral and IV within 1 hour of each other unless specifically ordered. Start: 04-10-2024 End: 04-10-2024 take 1 dose by mouth every hour 4 mg, IntraVENous, ONCE, 1 dose, On Mon04/10/24 at 2000, If oral and IV narcotics ordered, use oral first and only use IV if oral is ineffective or cannot take oral. Do Not give oral and IV within 1 hour of each other unless specifically ordered. Start: 04-02-2024 End: 04-02-2024 4 mg, IntraVENous, ONCE, 1 d ose, On Mon04/02/24 at 1230 Start: 02-03-2024 End: 02-03-2024 take 1 dose by mouth every hour 4 mg, IntraVENous, ONCE, 1 dose, On 02/03/24 at 2130, If oral and IV narcotics ordered, use oral first and only use IV if oral is ineffective or cannot take oral. Do Not give oral and IV within 1 hour of each other unless specifically ordered. NIFEdipine 30 mg osmotic 24 hr extended release oral tablet (12 sources) Dihydropyridine Calcium Channel Andrew Start: 11-14-2021 End: 12-08-2021 take 1 tablet by mouth once daily Nifedipine (Procardia Xl) 30 mg tablet extended release 24 hr Discontinued 30 MG PO Daily November 13, 2021 11:00pm December 08, 2021 10:33am omeprazole 20 mg delayed release oral capsule (20 sources) Proton Pump Inhibitor Start: 07-14-2023 End: 08-15-2023 take 1 capsule by mouth once daily before breakfast omeprazole (PRILOSEC) 20 MG delayed release capsule Indications: H. pylori infection Take 1 capsule by mouth every morning (before breakfast) 30 capsule 0 07/30/2023 08/15/2023 Discontinued (LIST CLEANUP) Start: 06-22-2022 End: 11-03-2022 take 1 capsule by mouth twice daily Omeprazole 40 mg capsule,delayed release(DR/EC) Discontinued 40 MG PO Twice daily 60 June 22, 2022 12:00am November 03, 2022 9:38am Start: 06-21-2022 End: 06-22-2022 take 1 capsule by mouth once daily Omeprazole 40 mg capsule,delayed release(DR/EC) Discontinued 40 MG PO Daily June 21, 2022 12:00am June 22, 2022 8:18am 2 ml ondansetron 2 mg/ml injection (20 sources) Serotonin-3 Receptor Antagonist Start: 04-10-2024 End: 04-11-2024 4 mg, IntraVENous, ONCE PRN, 1 dose, Starting on Mariajose 04/11/24 at 0045, Until Mariajose 04/11/24 at 0110, Nausea, Secondary antiemetic therapy., PACU only Start: 04-09-2024 End: 04-09-2024 4 mg, IntraVENous, ONCE, 1 d ose, On Mon04/09/24 at 1200 Start: 04-02-2024 End: 04-02-2024 4 mg, IntraVENous, ONCE, 1 d ose, On Mon04/02/24 at 1015 Start: 03-17-2024 End: 04-09-2024 take 1 tablet by mouth three times daily as needed for nausea ondansetron (ZOFRAN) 4 MG tablet Take 1 tablet by mouth 3 times daily as needed for Nausea or Vomiting 15 tablet 03/17/2024 04/09/2024 Discontinued (LIST CLEANUP) Start: 02-07-2024 take 1 tablet by kristel th every eight hours as needed for nausea ondansetron ODT (ZOFRAN ODT) 4 mg disintegrating tablet Dissolve 1 tablet (4 mg total) on tongue every 8 (eight) hours as needed for nausea for up to 10 doses. 10 tablet 02/07/2024 Active Start: 02-06-2024 End: 04-09-2024 take 1 tablet by mouth three times daily as needed for nausea ondansetron (ZOFRAN-ODT) 4 MG disintegrating tablet Take 1 tablet by mouth 3 times daily as needed for Nausea or Vomiting 10 tablet 04/02/2024 04/09/2024 Discontinued (LIST CLEANUP) Start: 02-03-2024 End: 02-03-2024 4 mg, IntraVENous, ONCE, 1 d ose, On 02/03/24 at 2130 Start: 01-17-2024 take 4 mg by mouth e very six hours as needed for nausea and vomiting ondansetron, PF, (ZOFRAN) 4 mg/2 mL injection Take 2 mL (4 mg total) by mouth every 6 (six) hours as needed for nausea or vomiting. 20 mL 01/17/2024 Active Start: 11-21-2023 ondansetron (Z OFRAN) 4 MG tablet 11/21/2023 Active Start: 07-10-2023 End: 08-15-2023 take 1 tablet by mouth three times daily as needed for nausea ondansetron (ZOFRAN-ODT) 4 MG disintegrating tablet Take 1 tablet by mouth 3 times daily as needed for Nausea or Vomiting 21 tablet 0 07/10/2023 08/15/2023 Discontinued (LIST CLEANUP) piperacillin-tazobactam (ZOS YN) 3,375 mg in sodium chloride 0.9 % 50 mL IVPB ([id number]) (2 sources) Start: 04-11-2024 End: 04-12-2024 3,375 mg, IntraVENous, EVERY 8 HOURS, 4 doses, First dose on Mariajose 04/11/24 at 0400, Last dose on Mon04/12/24 at 0400, Antimicrobial Indications: Intra-Abdominal Infection Start: 04-10-2024 End: 04-10-2024 3,375 mg, IntraVENous, ONCE, 1 dose, On 04/10/24 at 2015, Antimicrobial Indications: Intra-Abdominal Infection microencapsulated potassium chloride 20 meq extended release oral tablet (2 sources) Start: 04-14-2024 End: 04-14-2024 40 mEq, Oral, ONCE, 1 dose, On 04/14/24 at 0845, Do not crush, chew, or suck on tablet. Tablet may also be broken in half and each half swallowed separately. Start: 04-14-2024 End: 04-18-2024 potassium chloride (KLOR-CON M) extended release tablet 40 mEq Gcxhpviw-Wvk-Id-Fa () 1 mg Tablet (12 sources) Start: 11-03-2022 End: 01-26-2023 take 1 tablet by mouth once daily Pblejwgj-Uoy-Wm-Fa () 1 mg Tablet Discontinued 1 TAB PO Daily November 02, 2022 11:00pm January 26, 2023 9:37pm Start: 11-03-2022 End: 01-26-2023 take 1 tablet by mouth once daily Nigofgsc-Uet-Ms-Fa () 1 mg Tablet Discontinued 1 TAB PO Daily November 03, 2022 12:00am January 26, 2023 10:37pm Start: 11-03-2022 take 1 tablet by kristel th once daily Poitvggr-Rwx-Ce-Fa () 1 mg Tablet Active 1 TAB PO Daily November 03, 2022 12:00am prochlorperazine 5 mg/ml injectable solution (2 sources) Phenothiazine Start: 03-17-2024 End: 03-17-2024 10 mg, IntraVENous, ONCE, 1 dose, On 03/17/24 at 1045, If administering IV push, administer at a maximum rate of 5 mg/minute. Patients should remain lying down following administration and be reassessed for relief of nausea and presence of hypotension. Patients should be assisted the first time they get up after administration. Start: 11-20-2023 End: 11-21-2023 5 mg, IntraVENous, ONCE PRN, 1 dose, Starting on Mon11/20/23 at 1611, Until Mon11/21/23 at 1611, Nausea Secondary antiemetic therapy. PACU only promethazine hydrochloride 25 mg oral tablet (12 sources) Phenothiazine Start: 11-24-2018 End: 10-16-2020 take 1 tablet by mouth every eight hours as needed for nausea and vomiting Promethazine 25 mg tablet Discontinued 25 MG PO Q8H as needed for nausea and vomiting November 23, 2018 11:00pm October 16, 2020 9:45am promethazine (PHENERGAN) 12.5mg in sodium chloride 0.9% 50 mL IVPB SOLN 12.5 mg (2 sources) Start: 04-14-2024 End: 04-14-2024 12.5 mg, IntraVENous, at 100 mL/hr, Administer over 30 Minutes, ONCE, On Mon04/14/24 at 1900, For 1 dose, Administer via antecubital vein or higher. Start: 04-11-2024 12.5 mg, Intra VENous, at 100 mL/hr, Administer over 30 Minutes, EVERY 6 HOURS PRN, Nausea, Starting on Mon04/11/24 at 0954, 2nd line, Administer via antecubital vein or higher. 1000 ml sodium chloride 9 mg/ml injection (14 sources) Start: 04-11-2024 10 mL, IntraVE Nous, EVERY 12 HOURS SCHEDULED (2 times per day), First dose on Mon04/11/24 at 0900, Until Discontinued Start: 04-11-2024 Start: 04-10-2024 End: 04-12-2024 IntraVENous, at 100 mL/hr, CONTINUOUS, Starting on Mon04/11/24 at 0200, For 24 hours, Complete last bag that is running at 24 hours and then saline lock IV Start: 04-10-2024 End: 04-10-2024 1,000 mL (14.4 mL/kg), IntraVENous, at 1,935.5 mL/hr, Administer over 31 Minutes, ONCE, On Mon04/10/24 at 1830, For 1 dose, For adult patients weighing > 55 kg (120 lbs.) and less than Start: 03-17-2024 End: 03-17-2024 1,000 mL, IntraVENous, at 2, 000 mL/hr, Administer over 30 Minutes, ONCE, On Mon03/17/24 at 1045, For 1 dose Start: 02-07-2024 End: 02-07-2024 1,000 mL (13.8 mL/kg), IntraVENous, at 983.6 mL/hr, Administer over 61 Minutes, ONCE, On Mon02/07/24 at 1200, For 1 dose, For adult patients weighing > 55 kg (120 lbs.) and less than Start: 11-20-2023 take 1 dose intraven ously twice daily 5-40 mL, IntraVENous, EVERY 12 HOURS SCHEDULED (2 times per day), First dose on Mon11/20/23 at 2100, Until Discontinued For Line Patency: Peripheral IV = 5 mL; Midline or Central Line = 10 mL/lumen. If following IV push medication, administer flush at same rate as the IV push. Flush volume is determined by type of infusion therapy being given. For non-viscous solutions use: Peripheral IV = 5 mL Midline or Central Line = 10 mL/lumen For viscous solutions (i.e. blood components, parenteral nutrition, contrast media, or after obtaining blood sample) use: Peripheral IV = 10 mL Midline or Central Line = 20 mL/lumen PACU only Start: 11-20-2023 sodium chlorid e flush 0.9 % injection 5-40 mL Start: 11-20-2023 IntraVENous, a t 5-250 mL/hr, PRN, if patient receiving piggyback infusions and maintenance fluids are not ordered OR KVO fluids to protect IV site / prevent frequent line interruptions/ long duration, Starting on Mon11/20/23 at 1611 For piggyback infusion, administer at same rate as piggyback for a total of 25 mL. Enter 25 mL into dose field and piggyback rate into rate field of order. If piggyback is infusing at a rate less than 100 mL/hr, enter 25 mL into dose field and 100 mL/hr into rate field of order. For KVO fluids, enter rate of 20 mL/hr or less into rate field of order. PACU only Start: 11-20-2023 take 5-40 mL intrave nously once as needed 5-40 mL, IntraVENous, PRN, Starting on Mon11/20/23 at 1611, Until Discontinued, Line Care, After every IV line use For Line Patency: Peripheral IV = 5 mL; Midline or Central Line = 10 mL/lumen. If following IV push medication, administer flush at same rate as the IV push. Flush volume is determined by type of infusion therapy being given. For non-viscous solutions use: Peripheral IV = 5 mL Midline or Central Line = 10 mL/lumen For viscous solutions (i.e. blood components, parenteral nutrition, contrast media, or after obtaining blood sample) use: Peripheral IV = 10 mL Midline or Central Line = 20 mL/lumen PACU only Start: 11-20-2023 0.9 % sodium c hloride infusion Start: 11-20-2023 sodium chlorid e flush 0.9 % injection 5-40 mL terconazole 8 mg/ml vaginal cream (13 sources) Azole Antifungal Start: 02-19-2023 End: 02-22-2023 Terconazole 0.8 % Cream Discontinued 1 APPLICATOR VAGINAL Daily at bedtime February 18, 2023 11:00pm February 22, 2023 2:05pm Problems Active Problems Problem Classification Problem Date Documented Da te Episodic/Chronic Abdominal pain (20 sources) Unspecified abdominal pain; Translations: [Pain in pelvis] Onset: Episodic Anxiety disorders (2 sources) Anxiety; Translations: [Anxiety disorder, unspecified] Onset: 4 04-14-2024 Chronic Attention-deficit, conduct, and disruptive behavior disorders (1 source) Attention deficit hyperactivity disorder; Translations: [Attention-deficit hyperactivity disorder, unspecified type] 07-22-2024 Chronic Diverticulosis and diverticulitis (2 sources) Gastrointestinal perforation; Translations: [Diverticulitis of intestine, part unspecified, with perforation and abscess without bleeding] Onset: 4 04-10-2024 Chronic Endometriosis (1 source) Uterine adenomyosis; Translations: [Adenomyosis] 11-20-2023 Chronic Esophageal disorders (2 sources) Gastroesophageal reflux disease; Translations: [Gastro-esophageal reflux disease without esophagitis] Onset: 4 07-25-2023 Chronic Gastrointestinal hemorrhage (1 source) Melena Episodic Immunizations and screening for infectious disease (1 source) Contact with or exposure to other viral diseases; Translations: [Contact with and (suspected) exposure to covid-19] 07-22-2024 Episodic Menstrual disorders (2 sources) Menorrhagia; Translations: [Excessive and frequent menstruation with regular cycle] Onset: 4 11-20-2023 Chronic Nausea and vomiting (14 sources) Nausea with vomiting, unspecified; Translations: [Nausea and vomiting] Onset: Episodic Comment on above: Problem List clean-u p per request of Phys. EHR Cmte Nonspecific chest pain (1 source) Chest pain, unspecified; Translations: [Chest pain, unspecified] Onset: 4 Episodic Other complications of (6 sources) Maternal obesity complicating , childbirth and the puerperium, antepartum; Translations: [Obesity complicating , unspecified trimester] Onset: 0 09-08-2020 Chronic Other female genital disorders (1 source) Pelvic congestion syndrome; Translations: [Other specified conditions associated with female genital organs and menstrual cycle] 11-20-2023 Episodic Other gastrointestinal disorders (8 sources) Dysphagia; Translations: [Dysphagia, unspecified] Episodic Other gastrointestinal disorders (1 source) Dysphagia, unspecified Episodic Other gastrointestinal disorders (2 sources) Diarrhea, unspecified; Translations: [Diarrhea, unspecified] Onset: 4 Episodic Other gastrointestinal disorders (1 source) Diarrhea; Translations: [Diarrhea, unspecified] 07-25-2023 Episodic Other gastrointestinal disorders (1 source) Abdominal wind pain; Translations: [Gas pain] 07-25-2023 Episodic Other gastrointestinal disorders (1 source) Gas pain; Translations: [Gas pain] Onset: 4 Episodic Other gastrointestinal disorders (4 sources) Pneumoperitoneum; Translations: [Other specified disorders of peritoneum] Onset: 4 04-10-2024 Episodic Other lower respiratory disease (1 source) Shortness of breath; Translations: [Shortness of breath] Onset: 4 Episodic Other nervous system disorders (9 sources) Postoperative pain ; Translations: [Other acute postprocedural pain] Onset: 4 11-20-2023 Episodic Other and delivery including normal (7 sources) care status; Translations: [Encounter for routine follow-up] Onset: 3 02-27-2023 Episodic Comment on above: Problem List clean-u p per request of Phys. EHR Cmte Other upper respiratory infections (14 sources) Upper respiratory infection; Translations: [Acute upper respiratory infection, unspecified] Onset: 4 08-21-2019 Episodic Comment on above: Problem List clean-u p per request of Phys. EHR Cmte Polyhydramnios and other problems of amniotic cavity (19 sources) Srini rupture of membranes onset of labor after 24 hours; Translations: [ premature rupture of membranes, onset of labor more than 24 hours following rupture, unspecified trimester] Onset: 1 11-26-2020 Episodic Comment on above: Problem List clean-u p per request of Phys. EHR Cmte Regional enteritis and ulcerative colitis (9 sources) Crohn's disease; Translations: [Crohn's disease, unspecified, without complications] Chronic Residual codes; unclassified (12 sources) Gestation period, 34 weeks; Translations: [34 weeks gestation of ] 11-26-2020 Episodic Comment on above: Problem List clean-u p per request of Phys. EHR Cmte Residual codes; unclassified (12 sources) Tobacco use and exposure - finding; Translations: [Tobacco use] 08-21-2019 Episodic Comment on above: Problem List clean-u p per request of Phys. EHR Cmte Residual codes; unclassified (1 source) Pain, unspecified; Translations: [Pain, unspecified] Onset: 4 Episodic Septicemia (except in labor) (2 sources) Sepsis, unspecified organism; Translations: [Sepsis, unspecified organism] Onset: 4 Episodic Spondylosis; intervertebral disc disorders; other back problems (1 source) Backache Onset: 5 Episodic Substance-related disorders (16 sources) History of clinical finding in subject; Translations: [History of marijuana use] Onset: 0 07-19-2023 Chronic Unclassified (1 source) Encounter for sterilization; Translations: [Encounter for sterilization] Onset: 3 Unclassified (1 source) False labor before 37 completed weeks of gestation, third trimester; Translations: [False labor before 37 completed weeks of gestation, third trimester] Onset: 3 Unclassified (1 source) False labor at or after 37 completed weeks of gestation; Translations: [False labor at or after 37 completed weeks of gestation] Onset: 3 Unclassified (1 source) Encounter for screening for Streptococcus B; Translations: [Encounter for screening for Streptococcus B] Onset: 3 Unclassified (1 source) Encounter for suspected problem with amniotic cavity and membrane ruled out; Translations: [Encounter for suspected problem with amniotic cavity and membrane ruled out] Onset: 3 Unclassified (1 source) Post-op Problem Onset: 4 Unclassified (1 source) EMS/// 26 yo F Onset: 4 Unclassified (1 source) Adenomyosis of the uterus; Translations: [Adenomyosis of the uterus] Onset: 4 Viral infection (1 source) COVID-19; Translations: [COVID-19] Onset: 4 Past or Other Problems Problem Classification Problem Date Documented Da te Episodic/Chronic Inflammatory diseases of female pelvic organs (9 sources) Female pelvic inflammatory disease, unspecified; Translations: [Abscess of female pelvis] Onset: 01-13-2024 Episodic Mood disorders (6 sources) Mood disorders Onset: 01-05-2022 01-05-2022 Mycoses (6 sources) Candidiasis of mouth; Translations: [Candidal stomatitis] Onset: 01-05-2022 01-05-2022 Episodic Other aftercare (1 source) Device in situ; Translations: [Encounter for change or removal of drains] 01-22-2024 Episodic Other complications of (6 sources) Nausea and vomiting; Translations: [Vomiting of , unspecified] Onset: 04-28-2020 04-28-2020 Episodic Other complications of (6 sources) Tobacco smoking in mother complicating ; Translations: [Smoking (tobacco) complicating , unspecified trimester] Onset: 04-28-2020 08-11-2020 Episodic Other complications of (6 sources) History of shoulder dystocia; Translations: [Supervision of with other poor reproductive or obstetric history, unspecified trimester] Onset: 09-08-2020 09-08-2020 Episodic Other female genital disorders (1 source) Other specified conditions associated with female genital organs and menstrual cycle; Translations: [Other specified conditions associated with female genital organs and menstrual cycle] Onset: 11-20-2023 Episodic Other gastrointestinal disorders (1 source) Other specified disorders of peritoneum; Translations: [Other specified disorders of peritoneum] Onset: 04-10-2024 Episodic Other nervous system disorders (1 source) Other acute postprocedural pain; Translations: [Other acute postprocedural pain] Onset: 11-26-2023 Episodic Other nervous system disorders (6 sources) H/O: migraine; Translations: [Personal history of other diseases of the nervous system and sense organs] Onset: 05-20-2020 05-20-2020 Episodic Other screening for suspected conditions (not mental disorders or infectious disease) (6 sources) Intact membranes; Translations: [Encounter for suspected problem with amniotic cavity and membrane ruled out] Onset: 09-21-2020 09-21-2020 Episodic Ovarian cyst (7 sources) Cyst of right ovary; Translations: [Unspecified ovarian cyst, right side] Onset: 02-07-2024 02-04-2024 Episodic Residual codes; unclassified (1 source) 36 weeks gestation of ; Translations: [36 weeks gestation of ] Onset: 02-16-2023 Episodic Unclassified (11 sources) Spontaneous rupture of membranes; Translations: [Spontaneous rupture of amniotic membranes] 11-26-2020 Results Test Name Value Interpretation Reference Range Facility CBC AND AUTO DIFFon 09-17-19 25 ABSOLUTE BASOPHIL 0.0 X10E9/L Normal 0.0-0.2 [facility] Comment on above: Performed By: #### C DARIO, CMP #### [facility] ([id number]) [address] [place] [id number] ABSOLUTE NEUTROPHIL 3.0 X10E9/L Normal 1.5-6.6 [facility] Comment on above: Performed By: #### C DARIO, CMP #### [facility] ([id number]) [address] [place] [id number] Basophils/100 WBC (Bld) 0.4 % Normal [facility] Comment on above: Performed By: #### C DARIO, CMP #### [facility] ([id number]) [address] [place] [phone] Eosinophils (Bld) [#/Vol] 0.1 10*3/uL Normal 0.0-0.4 [facility] Comment on above: Performed By: #### C DARIO, CMP #### [facility] ([id number]) [address] [place] [id number] Eosinophils/100 WBC (Bld) 1.0 % Normal [facility] Comment on above: Performed By: #### C BCA, CMP #### [facility] ([id number]) [address] [place] [id number] Erythrocyte distribution width (RBC) [Ratio] 15.6 % High 11.5-15.0 [facility] Comment on above: Performed By: #### C BCA, CMP #### [facility] ([id number]) [address] [place] [address] [phone] Hematocrit (Bld) [Volume fraction] 35.7 % Normal 35-47 [facility] Comment on above: Performed By: #### C DARIO, CMP #### [facility] ([id number]) [address] [place] [id number] Hemoglobin (Bld) [Mass/Vol] 12.4 g/dL Normal 11.7-15.5 [facility] Comment on above: Performed By: #### C DARIO, CMP #### [facility] ([id number]) [address] [place] [phone] Lymphocytes (Bld) [#/Vol] 2.1 10*3/uL Normal 1.0-3.5 [facility] Comment on above: Performed By: #### C BCA, CMP #### [facility] ([id number]) [address] [place] [address] 28835 Lymphocytes/100 WBC (Bld) 37.9 % Normal [facility] Comment on above: Performed By: #### C BCA, CMP #### [facility] ([id number]) [address] [place] [address] 68326 MCH (RBC) [Entitic mass] 29.4 pg Normal 27-34 [facility] Comment on above: Performed By: #### C BCA, CMP #### [facility] ([id number]) [address] [place] [address] 14787 MCHC (RBC) [Mass/Vol] 34.6 g/dL Normal 32-36 [facility] Comment on above: Performed By: #### C DARIO, CMP #### [facility] ([id number]) [address] [place] [address] 92362 MCV (RBC) [Entitic vol] 85 fL Normal 80-100 [facility] Comment on above: Performed By: #### C DARIO, CMP #### [facility] ([id number]) [address] [place] [address] 98256 Monocytes (Bld) [#/Vol] 0.4 10*3/uL Normal 0-0.9 [facility] Comment on above: Performed By: #### C DARIO, CMP #### [facility] ([id number]) [address] [place] [address] 31018 Monocytes/100 WBC (Bld) 7.5 % Normal [facility] Comment on above: Performed By: #### C DARIO, CMP #### [facility] ([id number]) [address] [place] [address] 60421 Neutrophils/100 WBC (Bld) 53.2 % Normal [facility] Comment on above: Performed By: #### C DARIO, CMP #### [facility] ([id number]) [address] [place] [address] 15638 Platelet mean volume (Bld) [Entitic vol] 8.0 fL Normal 7-12 [facility] Comment on above: Performed By: #### C DARIO, CMP #### [facility] ([id number]) [address] [place] [address] 76524 Platelets (Bld) [#/Vol] 217 10*3/uL Normal 150-450 [facility] Comment on above: Performed By: #### C BCA, CMP #### [facility] ([id number]) [address] [place] [address] 19172 RBC COUNT 4.20 X10E12/L Normal 3.80-5.20 [facility] Comment on above: Performed By: #### C BCA, CMP #### [facility] ([id number]) [address] [place] [address] 63426 WBC (Bld) [#/Vol] 5.7 10*3/uL Normal 4.0-11.0 [facility] Comment on above: Performed By: #### C BCA, CMP #### [facility] ([id number]) [address] [place] [address] 96838 COMPREHENSIVE [facility]AB[facility] 09-16-2024 Albumin [Mass/Vol] 4.6 g/dL Normal 3.2-5.3 [facility] Comment on above: Performed By: #### C BCA, CMP #### [facility] ([id number]) [address] [place] [address] 16117 ALP [Catalytic activity/Vol] 48 U/L Normal 39-130 [facility] Comment on above: Performed By: #### C BCA, CMP #### [facility] ([id number]) [address] [place] [address] 82551 ALT [Catalytic activity/Vol] 12 U/L Normal 0-31 [facility] Comment on above: Performed By: #### C BCA, CMP #### [facility] ([id number]) [address] [place] [address] 48774 Anion gap [Moles/Vol] 8 mmol/L Normal 5-15 [facility] Comment on above: Performed By: #### C BCA, CMP #### [facility] ([id number]) [address] [place] [address] 12397 AST [Catalytic activity/Vol] 17 U/L Normal 0-41 [facility] Comment on above: Performed By: #### C BCA, CMP #### [facility] ([id number]) [address] [place] [address] 19002 Bilirubin [Mass/Vol] 0.3 mg/dL Normal 0.3-1.2 [facility] Comment on above: Performed By: #### C BCA, CMP #### [facility] ([id number]) [address] [place] [address] 66414 Calcium [Mass/Vol] 9.5 mg/dL Normal 8.5-10.5 [facility] Comment on above: Performed By: #### C BCA, CMP #### [facility] ([id number]) [address] [place] [address] 82008 Chloride [Moles/Vol] 102 mmol/L Normal 98-109 [facility] Comment on above: Performed By: #### C BCA, CMP #### [facility] ([id number]) [address] [place] [address] 31380 CO2 [Moles/Vol] 26 mmol/L Normal 22-32 [facility] Comment on above: Performed By: #### C BCA, CMP #### [facility] ([id number]) [address] [place] [address] 29733 Creatinine [Mass/Vol] 0.71 mg/dL Normal 0.40-1.00 [facility] Comment on above: Result Comment: METH OD TRACEABLE TO IDMS STANDARD Performed By: #### C BCA, CMP #### [facility] ([id number]) [address] [place] [address] 89388 eGFR (CKD-EPI) NON-RACE DEPENDENT >90 Normal >59 [facility] Comment on above: Result Comment: Reported eGFR is based on the CKD-EPI 2020 equation that does not use a race coefficient. Performed By: #### C BCA, CMP #### [facility] ([id number]) [address] [place] [address] 68203 Glucose [Mass/Vol] 89 mg/dL Normal 65-99 [facility] Comment on above: Performed By: #### C BCA, CMP #### [facility] ([id number]) [address] [place] [address] 87328 Potassium [Moles/Vol] 3.5 mmol/L Normal 3.5-5.0 [facility] Comment on above: Performed By: #### C BCA, CMP #### [facility] ([id number]) [address] [place] [address] 82257 Protein [Mass/Vol] 7.8 g/dL Normal 6.0-8.0 [facility] Comment on above: Performed By: #### C BCA, CMP #### [facility] ([id number]) [address] [place] [address] 30049 Sodium [Moles/Vol] 136 mmol/L Normal 134-146 [facility] Comment on above: Performed By: #### C BCA, CMP #### [facility] ([id number]) [address] [place] [address] 98617 Urea nitrogen [Mass/Vol] 8 mg/dL Normal 5-23 [facility] Comment on above: Performed By: #### C BCA, CMP #### [facility] ([id number]) [address] [place] [address] ABDOMEN AND PELVIS W CONT on 09-16-2024 CT ABDOMEN AND PELVIS W CONT CT ABDOMEN AND PELVIS W CONT CLINICAL HISTORY: Severe acute abdominal pain radiating to the back.. Abdominal pain TECHNIQUE/PROCEDURE: CT abdomen and pelvis with intravenous contrast. All CT scans at this facility use dose modulation, iterative reconstruction, and/or weight based dosing when appropriate to reduce radiation dose to as low as reasonably achievable COMPARISON: 01/13/2024 FINDINGS: Lung bases clear. The heart size is normal. No pericardial effusion. Normal hepatic morphology. Gallbladder present. No biliary dilatation or portal vein thrombosis. The pancreas and spleen are unremarkable. The adrenal glands and left kidney are normal. There is mild right hydronephrosis and hydroureter no bladder or ureteral calculus identified. Stable phleboliths in the pelvis. Status post hysterectomy. The ovaries are unremarkable with dominant follicle on the right. Abdominal aorta is nonaneurysmal. IVC right-sided. No enlarged abdominal or pelvic lymph nodes. Status post appendectomy. No bowel dilatation. No free air or free fluid. No peritoneal nodularity. The osseous structures are age compatible. No aggressive osseous lesions or fractures. Millimeter umbilical hernia containing noninflamed fat. IMPRESSION: * Mild right hydronephrosis and hydroureter with no ureteral or bladder calculus identified. Differential diagnosis includes ascending infection versus recently passed calculus. * Status post hysterectomy. Ovaries are negative aside from dominant follicle on the right. Finalized by Joel Blandon MD on 09/16/2024 9:31 PM Normal [facility] URN MACROSCOPIC NURon 2024 BILIRUBIN LYNSEY Negative Normal NEG [facility] Comment on above: Performed By: #### N UM #### [facility] ([id number]) [address] [place] [address] 39036 BLOOD/HGB LYNSEY Trace Abnormal NEG [facility] Comment on above: Performed By: #### N UM #### [facility] ([id number]) [address] [place] [address] 79310 GLUCOSE LYNSEY Negative Normal NEG [facility] Comment on above: Performed By: #### N UM #### [facility] ([id number]) [address] [place] [address] 73869 KETONES LYNSEY Negative Normal NEG [facility] Comment on above: Performed By: #### N UM #### [facility] ([id number]) [address] [place] [address] 35106 LEUKOCYTE ESTERASE LYNSEY Negative Normal NEG [facility] Comment on above: Performed By: #### N UM #### [facility] ([id number]) [address] [place] [address] 74056 NITRITE LYNSEY Negative Normal NEG [facility] Comment on above: Performed By: #### N UM #### [facility] ([id number]) [address] [place] [address] 89254 PH LYNSEY 5.5 Normal 5.0-8.5 [facility] Comment on above: Performed By: #### N UM #### [facility] ([id number]) [address] [place] [address] 07809 PROTEIN LYNSEY Negative Normal NEG [facility] Comment on above: Performed By: #### N UM #### [facility] ([id number]) [address] [place] [address] 78418 SPECIFIC GRAVITY LYNSEY 1.020 Normal 1.003-1.035 [facility] Comment on above: Performed By: #### N UM #### [facility] ([id number]) [address] [place] [address] 19490 UROBILINOGEN LYNSEY 0.2 eu/dL Normal <1.1 [facility] Comment on above: Performed By: #### N UM #### [facility] ([id number]) [address] [place] [address] 52001 Cult,Aerobe/Anaerobeon 04-16 Cult,Aerobe/Anaerobe Specimen Descriptio n .ABDOMEN SWAB Special Requests Site: Swab Direct Exam NO NEUTROPHILS SEEN NO BACTERIA SEEN Culture NORMAL SKIN EMILIA VEILLONELLA SPECIES RARE GROWTH Identification by MALDI-TOF Report Status FINAL 04/16/2024 Normal [facility] Comment on above: Performed By: #### C P, LIP, CDP #### [facility] [address] [place] [address] Pattern Checker: Lakhwinder Tim MD Culture, Anaerobic and Aerob icon 04-16-2024 Interpretation and review of laboratory results Abnormal [facility] Microorganism identified Cx Nom (Unsp spec) NORMAL SKIN EMILIA [facility] Microorganism identified Cx Nom (Unsp spec) VEILLONELLA SPECIES RARE GROWTH Identification by MALDI-TOF Abnormal [facility] Microorganism or agent identified Nom (Unsp spec) NO NEUTROPHILS SEEN [facility] Microorganism or agent identified Nom (Unsp spec) NO BACTERIA SEEN [facility] Service comment (Unsp spec) [Interp] Site: Swab [facility] Specimen Description .ABDOMEN SWAB B on [facility] XR ABDOMEN (KUB) (SINGLE AP VIEW)on 04-16-2024 XR ABDOMEN (KUB) (SINGLE AP VIEW) EXAMINATION: ONE SUPINE XRAY VIEW(S) OF THE ABDOMEN 04/16/2024 7:25 am COMPARISON: 04/14/2024 HISTORY: ORDERING SYSTEM PROVIDED HISTORY: Portable kub, comparison study TECHNOLOGIST PROVIDED HISTORY: Portable kub, comparison study FINDINGS: Lines and tubes: None Bowel gas pattern: Gas seen throughout the large and small bowel. No significant stool. Midline skin lucy. Radiopaque density seen overlying the right flank could be external to the patient.Given limitations of supine imaging, no evidence of free air, pneumatosis or portal venous gas. Abnormal calcifications: None Bones: Within normal limits for age Other: None IMPRESSION: Postoperative ileus. Interpreted by: Christian Ni MD Signed by: Christian Ni MD 04/16/24 Final result Normal [facility] XR Abdomen Single viewon Postoperative ileus. [facility] RIS CONSOLIDATED EXAMINATION: ONE SUPINE XRAY VIEW(S) OF THE ABDOMEN 04/16/2024 7:25 am COMPARISON: 04/14/2024 HISTORY: ORDERING SYSTEM PROVIDED HISTORY: Portable kub, comparison study TECHNOLOGIST PROVIDED HISTORY: Portable kub, comparison study FINDINGS: Lines and tubes: None Bowel gas pattern: Gas seen throughout the large and small bowel. No significant stool. Midline skin lucy. Radiopaque density seen overlying the right flank could be external to the patient.Given limitations of supine imaging, no evidence of free air, pneumatosis or portal venous gas. Abnormal calcifications: None Bones: Within normal limits for age Other: None [facility] RIS CONSOLIDATED Christian Ni MD - 04/16/2024 EXAMINATION: ONE SUPINE XRAY VIEW(S) OF THE ABDOMEN 04/16/2024 7:25 am COMPARISON: 04/14/2024 HISTORY: ORDERING SYSTEM PROVIDED HISTORY: Portable kub, comparison study TECHNOLOGIST PROVIDED HISTORY: Portable kub, comparison study FINDINGS: Lines and tubes: None Bowel gas pattern: Gas seen throughout the large and small bowel. No significant stool. Midline skin lucy. Radiopaque density seen overlying the right flank could be external to the patient.Given limitations of supine imaging, no evidence of free air, pneumatosis or portal venous gas. Abnormal calcifications: None Bones: Within normal limits for age Other: None IMPRESSION: Postoperative ileus. [facility] Radiology Study observation (narrative) [facility] Abdomen Single viewOrdere d By: Christian Ni on 04-16-2024 [facility] Work Phone: CBC auto differentialon 03-20 Basophils (Bld) [#/Vol] [facility] Basophils/100 WBC (Bld) 0 % 0 - 2 % [facility] Eosinophils (Bld) [#/Vol] 0.33 10*3/uL [facility] Eosinophils/100 WBC (Bld) 8 % High 1 - 4 % [facility] Erythrocyte distribution width (RBC) [Ratio] 13.0 % 11.8 - 14.4 % [facility] Hematocrit (Bld) [Volume fraction] 28.5 % Low 36.3 - 47.1 % [facility] Hemoglobin (Bld) [Mass/Vol] 9.3 g/dL Low 11.9 - 15.1 g/dL [facility] Immature granulocytes (Bld) [#/Vol] [facility] Immature granulocytes/100 WBC (Bld) 0 % 0 [facility] Interpretation and review of laboratory results Abnormal [facility] Lymphocytes/100 WBC (Bld) 45 % High 24 - 43 % [facility] Lymphocytes/100 WBC (Bld) 1.87 % [facility] MCH (RBC) [Entitic mass] 28.6 pg 25.2 - 33.5 pg [facility] MCHC (RBC) [Mass/Vol] 32.6 g/dL 28.4 - 34.8 g/dL [facility] MCV (RBC) [Entitic vol] 87.7 fL 82.6 - 102.9 fL [facility] Monocytes/100 WBC (Bld) 9 % 3 - 12 % [facility] Monocytes/100 WBC (Bld) 0.39 % [facility] Neutrophils/100 WBC (Bld) 38 % 36 - 65 % [facility] Nucleated RBC/100 WBC (Bld) [Ratio] 0.0 % 0.0 per 100 WBC [facility] Platelet mean volume (Bld) [Entitic vol] 9.7 fL 8.1 - 13.5 fL [facility] Platelets (Bld) [#/Vol] 204 10*3/uL [facility] RBC (Bld) [#/Vol] 3.25 10*6/uL Low 3.95 - 5.1 1 m/uL [facility] Segmented neutrophils/100 WBC (Bld) 1.62 % [facility] WBC other (Bld) [#/Vol] 4.2 [facility] CBC with Diffon 04-15-2024 Abs. Basophil <0.03 Normal 0.00-0.20 [facility] Comment on above: Performed By: #### C DP #### [facility] [address] [place] [address] [place], [place] [id number] Pattern Checker: Lakhwinder Tim MD Abs.Imm.Granulocyte <0.03 Normal 0.00-0.30 [facility] Comment on above: Performed By: #### C DP #### [facility] [address] [place] [address] Pattern Checker: Lkahwinder Tim MD Abs.Neutrophil (Seg) 1.62 k/uL Normal 1.50-8.10 [facility] Comment on above: Performed By: #### C DP #### [facility] [address] [place] [address] Pattern Checker: Lakhwinder Tim MD Basophils/100 WBC (Bld) 0 % Normal 0-2 [facility] Comment on above: Performed By: #### C DP #### [facility] [address] [place] [address] [place] [address] Pattern Checker: Lakhwinder Tim MD Eosinophils (Bld) [#/Vol] 0.33 10*3/uL Normal 0.00-0.44 [facility] Comment on above: Performed By: #### C DP #### [facility] [address] [place] [address] [place] [address] Pattern Checker: Lakhwinder Tim MD Eosinophils/100 WBC (Bld) 8 % High 1-4 [facility] Comment on above: Performed By: #### C DP #### [address] [place], [facility]83 Pattern Checker: Lakhwinder Tim MD Erythrocyte distribution width (RBC) [Ratio] 13.0 % Normal 11.8-14.4 [facility] Comment on above: Performed By: #### C DP #### [address] [place], [place] 6[address]83 Pattern Checker: Lakhwinder Tim MD Hematocrit (Bld) [Volume fraction] 28.5 % Low 36.3-47.1 [facility] Comment on above: Performed By: #### C DP #### [address] [place], [facility]83 Pattern Checker: Lakhwinder Tim MD Hemoglobin (Bld) [Mass/Vol] 9.3 g/dL Low 11.9-15.1 [facility] Comment on above: Performed By: #### C DP #### [address] [place] [address] Pattern Checker: Lakhwinder Tim MD Immature granulocytes/100 WBC (Bld) 0 % Normal 0 [facility] Comment on above: Performed By: #### C DP #### [facility] [address] [place], [place] [id number] Pattern Checker: Lakhwinder Tim MD Lymphocytes (Bld) [#/Vol] 1.87 10*3/uL Normal 1.10-3.70 [facility] Comment on above: Performed By: #### C DP #### [facility] [address] [place], [facility]83 Pattern Checker: Lakhwinder Tim MD Lymphocytes/100 WBC (Bld) 45 % High 24-43 [facility] Comment on above: Performed By: #### C DP #### [facility] [address] [place] [id number] Pattern Checker: Lakhwinder Tim MD MCH (RBC) [Entitic mass] 28.6 pg Normal 25.2-33.5 [facility] Comment on above: Performed By: #### C DP #### [address] [place], [facility]18 ( Pattern Checker: Lakhwinder Tim MD MCHC (RBC) [Mass/Vol] 32.6 g/dL Normal 28.4-34.[address] [facility] Comment on above: Performed By: #### C DP #### [address] [place], [facility]59 ( Pattern Checker: Lakhwinder Tim MD MCV (RBC) [Entitic vol] 87.7 fL Normal 82.6-102.9 [facility] Comment on above: Performed By: #### C DP #### [facility] [address] [place], [facility]83 Pattern Checker: Lakhwinder Tim MD Monocytes (Bld) [#/Vol] 0.39 10*3/uL Normal 0.10-1.20 [facility] Comment on above: Performed By: #### C DP #### [facility] [address] [place], [facility]83 Pattern Checker: Lakhwinder Tim MD Monocytes/100 WBC (Bld) 9 % Normal 3-12 [facility] Comment on above: Performed By: #### C DP #### [facility] [address] [place], [place] [id number] Pattern Checker: Lakhwinder Tim MD Neutrophil (Seg) 38 % Normal 36-65 [facility] Comment on above: Performed By: #### C DP #### [facility] [address] [place], [place] [id number] Pattern Checker: Lakhwinder Tim MD NRBC Automated 0.0 per 100 WBC Normal 0.0 [facility] Comment on above: Performed By: #### C DP #### [facility] [address] [place], [place] [id number] Pattern Checker: Lakhwinder Tim MD Platelet mean volume (Bld) [Entitic vol] 9.7 fL Normal 8.1-13.5 [facility] Comment on above: Performed By: #### C DP #### [facility] [address] [place] [address] Pattern Checker: Lakhwinder Tim MD Platelets (Bld) [#/Vol] 204 10*3/uL Normal 138-453 [facility] Comment on above: Performed By: #### C DP #### [facility] [address] [place], [facility]83 Pattern Checker: Lakhwinder Tim MD RBC (Bld) [#/Vol] 3.25 10*6/uL Low 3.95-5.11 [facility] Comment on above: Performed By: #### C DP #### [facility] [address] [place], [place] [id number] Pattern Checker: Lakhwinder Tim MD WBC (Bld) [#/Vol] 4.2 10*3/uL Normal 3.5-11.3 [facility] Comment on above: Performed By: #### C DP #### [facility] [address] [place], [place] 924[address]83 Pattern Checker: Lakhwinder Tim MD Comp Metabolic Pr/rfx MGon 1 0- Albumin [Mass/Vol] 3.2 g/dL Low 3.5-5.2 [facility] Comment on above: Performed By: #### C DP #### [facility] [address] [place], [place] 2606083 Pattern Checker: Lakhwinder Tim MD Albumin/Glob Ratio 1.1 Normal 1.0-2.5 [facility] Comment on above: Performed By: #### C DP #### [facility] [address] [place], [place] [id number] Pattern Checker: Lakhwinder Tim MD Alkaline Phos 75 U/L Normal 35-104 [facility] Comment on above: Performed By: #### C DP #### [facility] [address] [place], [place] [address]83 Pattern Checker: Lakhwinder Tim MD ALT [Catalytic activity/Vol] 10 U/L Normal 10-35 [facility] Comment on above: Performed By: #### C DP #### [facility] [address] [place] [address] [place], [place] [phone] Pattern Checker: Lakhwinder Tim MD Anion gap [Moles/Vol] 6 mmol/L Low 9-[address] [facility] Comment on above: Performed By: #### C DP #### [facility] [address] [place], [place] 0572183 Pattern Checker: Lakhwinder Tim MD AST [Catalytic activity/Vol] 10 U/L Normal 10-35 [facility] Comment on above: Performed By: #### C DP #### [facility] [address] [place], [place] [id number] Pattern Checker: Lakhwinder Tim MD Bilirubin [Mass/Vol] mg/dL Normal 0.00-1.20 [facility] Comment on above: Performed By: #### C DP #### [facility] [address] [place], [place] [id number] Pattern Checker: Lakhwinder Tim MD BUN/CRE Ratio 10 Normal 9-20 [facility] Comment on above: Performed By: #### C DP #### [facility] [address] [place] [id number] Pattern Checker: Lakhwinder Tim MD Calcium [Mass/Vol] 8.6 mg/dL Normal 8.6-10.4 [facility] Comment on above: Performed By: #### C DP #### [facility] [address] [place], [place] 3708483 Pattern Checker: Lakhwinder Tim MD Chloride [Moles/Vol] 104 mmol/L Normal 98-107 [facility] Comment on above: Performed By: #### C DP #### [facility] [address] [place] [id number] Pattern Checker: Lakhwinder Tim MD CO2 [Moles/Vol] 28 mmol/L Normal 20-31 [facility] Comment on above: Performed By: #### C DP #### [facility] [address] [place], [place] 2115183 Pattern Checker: Lakhwinder Tim MD Creatinine [Mass/Vol] 0.5 mg/dL Normal 0.50-0.[address] [facility] Comment on above: Performed By: #### C DP #### [facility] [address] [place], [place] [id number] Pattern Checker: Lakhwinder Tim MD GFR/1.73 sq M.predicted among non-blacks MDRD (S/P/Bld) [Vol rate/Area] mL/min/{1.73_m2} Normal >60 [facility] Comment on above: Result Comment: These results are not intended for use in patients <18 years of age. eGFR results are calculated without a race factor using the 2020 CKD-EPI equation. Careful clinical correlation is recommended, particularly when comparing to results calculated using previous equations. The CKD-EPI equation is less accurate in patients with extremes of muscle mass, extra-renal metabolism of creatine, excessive creatine ingestion, or following therapy that affects renal tubular secretion. Performed By: #### C DP #### [facility] [address] [place], [place] [id number] Pattern Checker: Lakhwinder Tim MD Glucose [Mass/Vol] 89 mg/dL Normal 74-99 [facility] Comment on above: Performed By: #### C DP #### [facility] [address] [place], [place] [id number] Pattern Checker: Lakhwinder Tim MD Potassium [Moles/Vol] 3.8 mmol/L Normal 3.7-5.[address] [facility] Comment on above: Performed By: #### C DP #### [facility] [address] [place] [address] [address] [place], [place] [id number] Pattern Checker: Lakhwinder Tim MD Protein [Mass/Vol] 6.2 g/dL Low 6.6-8.7 [facility] Comment on above: Performed By: #### C DP #### [address] [place] [address] Pattern Checker: Lakhwinder Tim MD Sodium [Moles/Vol] 138 mmol/L Normal 136-145 [facility] Comment on above: Performed By: #### C DP #### [facility] [address] [place] [address] [place] [address] Pattern Checker: Lakhwinder Tim MD Urea nitrogen [Mass/Vol] 5 mg/dL Low 6-20 [facility] Comment on above: Performed By: #### C DP #### [facility] [address] [place] [address] [place] [place], [place] [id number] Pattern Checker: Lakhwinder Tim MD Comprehensive Metabolic Pane l w/ Reflex to [facility] 04-15-2024 Albumin [Mass/Vol] 3.2 g/dL Low 3.5 - 5.2 g/dL [facility] Albumin/Globulin [Mass ratio] 1.1 {ratio} 1.0 - 2.5 [facility] ALP [Catalytic activity/Vol] 75 U/L 35 - 104 U/L [facility] ALT [Catalytic activity/Vol] 10 U/L 10 - 35 U/L [facility] Anion gap [Moles/Vol] 6 mmol/L Low 9 - 16 mmol/L [facility] AST [Catalytic activity/Vol] 10 U/L 10 - 35 U/L [facility] Bilirubin [Mass/Vol] mg/dL 0.00 - 1.20 mg/dL [facility] Calcium [Mass/Vol] 8.6 mg/dL 8.6 - 10. 4 mg/dL [facility] Chloride [Moles/Vol] 104 mmol/L 98 - 10 7 mmol/L [facility] CO2 [Moles/Vol] 28 mmol/L 20 - 31 mmol/L [facility] Creatinine [Mass/Vol] 0.5 mg/dL 0.50 - 0.90 mg/dL [facility] Est, Love [place] Rate - PINF [facility] Comment on above: These results are not intended for use in patients <18 years of age. eGFR results are calculated without a race factor using the 2020 CKD-EPI equation. Careful clinical correlation is recommended, particularly when comparing to results calculated using previous equations. The CKD-EPI equation is less accurate in patients with extremes of muscle mass, extra-renal metabolism of creatine, excessive creatine ingestion, or following therapy that affects renal tubular secretion. Glucose [Mass/Vol] 89 mg/dL 74 - 99 mg/dL [facility] Interpretation and review of laboratory results Abnormal [facility] Potassium [Moles/Vol] 3.8 mmol/L 3.7 - 5.3 mmol/L [facility] Protein [Mass/Vol] 6.2 g/dL Low 6.6 - 8.7 g/dL [facility] Sodium [Moles/Vol] 138 mmol/L 136 - 145 mmol/L [facility] Urea nitrogen [Mass/Vol] 5 mg/dL Low 6 - 20 mg/dL [facility] Urea nitrogen/Creatinine [Mass ratio] 10 mg/mg 9 - 20 [facility] CBC auto differentialon 03-20 Basophils (Bld) [#/Vol] [facility] Basophils/100 WBC (Bld) 0 % 0 - 2 % [facility] Eosinophils (Bld) [#/Vol] 0.28 10*3/uL [facility] Eosinophils/100 WBC (Bld) 6 % High 1 - 4 % [facility] Erythrocyte distribution width (RBC) [Ratio] 13.2 % 11.8 - 14.4 % [facility] Hematocrit (Bld) [Volume fraction] 27.5 % Low 36.3 - 47.1 % [facility] Hemoglobin (Bld) [Mass/Vol] 8.8 g/dL Low 11.9 - 15.1 g/dL [facility] Immature granulocytes (Bld) [#/Vol] [facility] Immature granulocytes/100 WBC (Bld) 0 % 0 [facility] Interpretation and review of laboratory results Abnormal [facility] Lymphocytes/100 WBC (Bld) 35 % 24 - 43 % [facility] Lymphocytes/100 WBC (Bld) 1.62 % [facility] MCH (RBC) [Entitic mass] 28.2 pg 25.2 - 33.5 pg [facility] MCHC (RBC) [Mass/Vol] 32.0 g/dL 28.4 - 34.8 g/dL [facility] MCV (RBC) [Entitic vol] 88.1 fL 82.6 - 102.9 fL [facility] Monocytes/100 WBC (Bld) 10 % 3 - 12 % [facility] Monocytes/100 WBC (Bld) 0.47 % [facility] Neutrophils/100 WBC (Bld) 49 % 36 - 65 % [facility] Nucleated RBC/100 WBC (Bld) [Ratio] 0.0 % 0.0 per 100 WBC [facility] Platelet mean volume (Bld) [Entitic vol] 10.3 fL 8.1 - 13.5 fL [facility] Platelets (Bld) [#/Vol] 183 10*3/uL [facility] RBC (Bld) [#/Vol] 3.12 10*6/uL Low 3.95 - 5.1 1 m/uL [facility] Segmented neutrophils/100 WBC (Bld) 2.22 % [facility] WBC other (Bld) [#/Vol] 4.6 [facility] CBC with Diffon 04-14-2024 Abs. Basophil <0.03 Normal 0.00-0.20 [facility] Comment on above: Performed By: #### C P, LIP, CDP #### [facility] [address] [place] [address] Pattern Checker: Lakhwinder Tim MD Abs.Imm.Granulocyte <0.03 Normal 0.00-0.30 [facility] Comment on above: Performed By: #### C P, LIP, CDP #### [facility] [address] [place], [place] [id number] Pattern Checker: Lakhwinder Tim MD Abs.Neutrophil (Seg) 2.22 k/uL Normal 1.50-8.10 [facility] Comment on above: Performed By: #### C P, LIP, CDP #### [facility] [address] [place], [place] [id number] Pattern Checker: Lakhwinder Tim MD Basophils/100 WBC (Bld) 0 % Normal 0-2 [facility] Comment on above: Performed By: #### C P, LIP, CDP ####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 Mechanic film of a CT abdomen of 10 April 2024 HISTORY: ORDERING SYSTEM PROVIDED HISTORY: Abd pain TECHNOLOGIST PROVIDED HISTORY: Abd pain FINDINGS: Midline skin clips are noted, new since prior study. The bowel gas pattern is nonobstructive. No free air is noted. Mildly increased colonic gas is noted likely related to minimal ileus. Lung bases are clear. [facility] RIS CONSOLIDATED Maeve Price MD - 04/13/2024 EXAMINATION: ONE SUPINE XRAY VIEW(S) OF THE ABDOMEN 04/13/2024 7:21 am COMPARISON: Wrecking Mechanic film of a CT abdomen of 10 April 2024 HISTORY: ORDERING SYSTEM PROVIDED HISTORY: Abd pain TECHNOLOGIST PROVIDED HISTORY: Abd pain FINDINGS: Midline skin clips are noted, new since prior study. The bowel gas pattern is nonobstructive. No free air is noted. Mildly increased colonic gas is noted likely related to minimal ileus. Lung bases are clear. IMPRESSION: 1. Nonobstructive bowel gas pattern. 2. Mildly increased colonic gas likely related to minimal ileus. [facility] Study observation (narrative) [facility] XR Abdomen Single viewOrdere d By: Maeve Price on 04-13-2024 [facility] Work Phone: CBC auto differentialon 03-20 Basophils (Bld) [#/Vol] [facility] Basophils/100 WBC (Bld) 0 % 0 - 2 % [facility] Eosinophils (Bld) [#/Vol] [facility] Eosinophils/100 WBC (Bld) 0 % Low 1 - 4 % [facility] Erythrocyte distribution width (RBC) [Ratio] 13.4 % 11.8 - 14.4 % [facility] Hematocrit (Bld) [Volume fraction] 28.0 % Low 36.3 - 47.1 % [facility] Hemoglobin (Bld) [Mass/Vol] 8.9 g/dL Low 11.9 - 15.1 g/dL [facility] Immature granulocytes (Bld) [#/Vol] [facility] Immature granulocytes/100 WBC (Bld) 0 % 0 [facility] Interpretation and review of laboratory results Abnormal [facility] Lymphocytes/100 WBC (Bld) 33 % 24 - 43 % [facility] Lymphocytes/100 WBC (Bld) 2.08 % [facility] MCH (RBC) [Entitic mass] 28.1 pg 25.2 - 33.5 pg [facility] MCHC (RBC) [Mass/Vol] 31.8 g/dL 28.4 - 34.8 g/dL [facility] MCV (RBC) [Entitic vol] 88.3 fL 82.6 - 102.9 fL [facility] Monocytes/100 WBC (Bld) 9 % 3 - 12 % [facility] Monocytes/100 WBC (Bld) 0.55 % [facility] Neutrophils/100 WBC (Bld) 58 % 36 - 65 % [facility] Nucleated RBC/100 WBC (Bld) [Ratio] 0.0 % 0.0 per 100 WBC [facility] Platelet mean volume (Bld) [Entitic vol] 10.7 fL 8.1 - 13.5 fL [facility] Platelets (Bld) [#/Vol] 139 10*3/uL [facility] RBC (Bld) [#/Vol] 3.17 10*6/uL Low 3.95 - 5.1 1 m/uL [facility] Segmented neutrophils/100 WBC (Bld) 3.71 % [facility] WBC other (Bld) [#/Vol] 6.4 [facility] CBC with Diffon 04-12-2024 Abs. Basophil <0.03 Normal 0.00-0.20 [facility] Comment on above: Performed By: #### C DP #### [facility] [address] [place] [address] Pattern Checker: Lakhwinder Tim MD Abs. Eosinophil <0.03 Normal 0.00-0.44 [facility] Comment on above: Performed By: #### C DP #### [facility] [address] [place], [place] [id number] Pattern Checker: Lakhwinder Tim MD Abs.Imm.Granulocyte <0.03 Normal 0.00-0.30 [facility] Comment on above: Performed By: #### C DP #### [facility] [address] [place] [address] [place] [id number] Pattern Checker: Lakhwinder Tim MD Abs.Neutrophil (Seg) 3.71 k/uL Normal 1.50-8.10 [facility] Comment on above: Performed By: #### C DP #### [address] [place] [id number] Pattern Checker: Lakhwinder Tim MD Basophils/100 WBC (Bld) 0 % Normal 0-2 [facility] Comment on above: Performed By: #### C DP #### [address] [place], [place] [id number] Pattern Checker: Lakhwinder Tim MD Eosinophils/100 WBC (Bld) 0 % Low 1-4 [facility] Comment on above: Performed By: #### C DP #### [address] [place], [facility]83 Pattern Checker: Lakhwinder Tim MD Erythrocyte distribution width (RBC) [Ratio] 13.4 % Normal 11.8-14.4 [facility] Comment on above: Performed By: #### C DP #### [address] [place], [facility]83 Pattern Checker: Lakhwinder Tim MD Hematocrit (Bld) [Volume fraction] 28.0 % Low 36.3-47.1 [facility] Comment on above: Performed By: #### C DP #### [address] [place] [id number] Pattern Checker: Lakhwinder Tim MD Hemoglobin (Bld) [Mass/Vol] 8.9 g/dL Low 11.9-15.1 [facility] Comment on above: Performed By: #### C DP #### [facility] [address] [place] [id number] Pattern Checker: Lakhwinder Tim MD Immature granulocytes/100 WBC (Bld) 0 % Normal 0 [facility] Comment on above: Performed By: #### C DP #### [facility] [address] [place], [place] 4218983 Pattern Checker: Lakhwinder Tim MD Lymphocytes (Bld) [#/Vol] 2.08 10*3/uL Normal 1.10-3.70 [facility] Comment on above: Performed By: #### C DP #### [address] [place], [place] [id number] Pattern Checker: Lakhwinder Tim MD Lymphocytes/100 WBC (Bld) 33 % Normal 24-43 [facility] Comment on above: Performed By: #### C DP #### [address] [place], [place] [id number] Pattern Checker: Lakhwinder Tim MD MCH (RBC) [Entitic mass] 28.1 pg Normal 25.2-33.5 [facility] Comment on above: Performed By: #### C DP #### [address] [place], [place] 6283283 Pattern Checker: Lakhwinder Tim MD MCHC (RBC) [Mass/Vol] 31.8 g/dL Normal 28.4-34.[address] [facility] Comment on above: Performed By: #### C DP #### [address] [place], [place] [id number] Pattern Checker: Lakhwinder Tim MD MCV (RBC) [Entitic vol] 88.3 fL Normal 82.6-102.9 [facility] Comment on above: Performed By: #### C DP #### [facility] [address] [place], [place] [id number] Pattern Checker: Lakhwinder Tim MD Monocytes (Bld) [#/Vol] 0.55 10*3/uL Normal 0.10-1.20 [facility] Comment on above: Performed By: #### C DP #### [facility] [address] [place], [place] 2374083 Pattern Checker: Lakhwinder Tim MD Monocytes/100 WBC (Bld) 9 % Normal 3-12 [facility] Comment on above: Performed By: #### C DP #### [facility] [address] [place], [place] [id number] Pattern Checker: Lakhwinder Tim MD Neutrophil (Seg) 58 % Normal 36-65 [facility] Comment on above: Performed By: #### C DP #### [facility] [address] [place], [place] [id number] Pattern Checker: Lakhwinder Tim MD NRBC Automated 0.0 per 100 WBC Normal 0.0 [facility] Comment on above: Performed By: #### C DP #### [facility] [address] [place], [place] 8702883 Pattern Checker: Lakhwinder Tim MD Platelet mean volume (Bld) [Entitic vol] 10.7 fL Normal 8.1-13.5 [facility] Comment on above: Performed By: #### C DP #### [facility] [address] [place], [place] 7983883 Pattern Checker: Lakhwinder Tim MD Platelets (Bld) [#/Vol] 139 10*3/uL Normal 138-453 [facility] Comment on above: Performed By: #### C DP #### [facility] [address] [place], [place] 6490783 Pattern Checker: Lakhwinder Tim MD RBC (Bld) [#/Vol] 3.17 10*6/uL Low 3.95-5.11 [facility] Comment on above: Performed By: #### C DP #### [facility] [address] [place], [place] [phone] Pattern Checker: Lakhwinder Tim MD WBC (Bld) [#/Vol] 6.4 10*3/uL Normal 3.5-11.3 [facility] Comment on above: Performed By: #### C DP #### [facility] [address] [place], [place] 0853183 Pattern Checker: Lakhwinder Tim MD Comp Metabolic Pr/rfx MGon 1 Albumin [Mass/Vol] 3.1 g/dL Low 3.5-5.2 [facility] Comment on above: Performed By: #### C DP #### [facility] [address] [place], [place] 6546183 Pattern Checker: Lakhwinder Tim MD Albumin/Glob Ratio 1.2 Normal 1.0-2.5 [facility] Comment on above: Performed By: #### C DP #### [facility] [address] [place] [address] Pattern Checker: Lakhwinder Tim MD Alkaline Phos 41 U/L Normal 35-104 [facility] Comment on above: Performed By: #### C DP #### [facility] [address] [place] [address] Pattern Checker: Lakhwinder Tim MD ALT [Catalytic activity/Vol] 11 U/L Normal 10-35 [facility] Comment on above: Performed By: #### C DP #### [facility] [address] [place], [place] [phone] Pattern Checker: Lakhwinder Tim MD Anion gap [Moles/Vol] 9 mmol/L Normal 9-[address] [facility] Comment on above: Performed By: #### C DP #### [facility] [address] [place], [place] 9198583 Pattern Checker: Lakhwinder Tim MD AST [Catalytic activity/Vol] 9 U/L Low 10-35 [facility] Comment on above: Performed By: #### C DP #### [facility] [address] [place], [place] 5119883 Pattern Checker: Lakhwinder Tim MD Bilirubin [Mass/Vol] 0.3 mg/dL Normal 0.00-1.20 [facility] Comment on above: Performed By: #### C DP #### [facility] [address] [place], [place] [id number] Pattern Checker: Lakhwinder Tim MD BUN/CRE Ratio 24 High 9-20 [facility] Comment on above: Performed By: #### C DP #### [facility] [address] [place], [place] [phone] Pattern Checker: Lakhwinder iTm MD Calcium [Mass/Vol] 8.2 mg/dL Low 8.6-10.4 [facility] Comment on above: Performed By: #### C DP #### [facility] [address] [place], [place] 6597583 Pattern Checker: Lakhwinder Tim MD Chloride [Moles/Vol] 106 mmol/L Normal 98-107 [facility] Comment on above: Performed By: #### C DP #### [facility] [address] [place], [place] 7334783 Pattern Checker: Lakhwinder Tim MD CO2 [Moles/Vol] 24 mmol/L Normal 20-31 [facility] Comment on above: Performed By: #### C DP #### [facility] [address] [place], [place] [id number] Pattern Checker: Lakhwinder Tim MD Creatinine [Mass/Vol] 0.5 mg/dL Normal 0.50-0.[address] [facility] Comment on above: Performed By: #### C DP #### [facility] [address] [place] [address] Pattern Checker: Lakhwinder Tim MD GFR/1.73 sq M.predicted among non-blacks MDRD (S/P/Bld) [Vol rate/Area] mL/min/{1.73_m2} Normal >60 [facility] Comment on above: Result Comment: These results are not intended for use in patients <18 years of age. eGFR results are calculated without a race factor using the 2020 CKD-EPI equation. Careful clinical correlation is recommended, particularly when comparing to results calculated using previous equations. The CKD-EPI equation is less accurate in patients with extremes of muscle mass, extra-renal metabolism of creatine, excessive creatine ingestion, or following therapy that affects renal tubular secretion. Performed By: #### C DP #### [facility] [address] [place] [address] [place] [address] Pattern Checker: Lakhwinder Tim MD Glucose [Mass/Vol] 83 mg/dL Normal 74-99 [facility] Comment on above: Performed By: #### C DP #### [address] [place] [address] Pattern Checker: Lakhwinder Tim MD Potassium [Moles/Vol] 3.3 mmol/L Low 3.7-5.[address] [facility] Comment on above: Performed By: #### C DP #### [facility] [address] [place] [address] Pattern Checker: Lakhwinder Tim MD Protein [Mass/Vol] 5.8 g/dL Low 6.6-8.7 [facility] Comment on above: Performed By: #### C DP #### [facility] [address] [place] [address] Pattern Checker: Lakhwinder Tim MD Sodium [Moles/Vol] 139 mmol/L Normal 136-145 [facility] Comment on above: Performed By: #### C DP #### [facility] [address] [place] [address] Pattern Checker: Lakhwinder Tim MD Urea nitrogen [Mass/Vol] 12 mg/dL Normal 6-20 [facility] Comment on above: Performed By: #### C DP #### [facility] [address] [place] [address] Pattern Checker: Lakhwinder Tim MD Comprehensive Metabolic Pane l w/ Reflex to MGon 04-12-2024 Albumin [Mass/Vol] 3.1 g/dL Low 3.5 - 5.2 g/dL [facility] Albumin/Globulin [Mass ratio] 1.2 {ratio} 1.0 - 2.5 [facility] ALP [Catalytic activity/Vol] 41 U/L 35 - 104 U/L [facility] ALT [Catalytic activity/Vol] 11 U/L 10 - 35 U/L [facility] Anion gap [Moles/Vol] 9 mmol/L 9 - 16 mmol/L [facility] AST [Catalytic activity/Vol] 9 U/L Low 10 - 35 U/L [facility] Bilirubin [Mass/Vol] 0.3 mg/dL 0.00 - 1.20 mg/dL [facility] Calcium [Mass/Vol] 8.2 mg/dL Low 8.6 - 10. 4 mg/dL [facility] Chloride [Moles/Vol] 106 mmol/L 98 - 10 7 mmol/L [facility] CO2 [Moles/Vol] 24 mmol/L 20 - 31 mmol/L [facility] Creatinine [Mass/Vol] 0.5 mg/dL 0.50 - 0.90 mg/dL [facility] Est, Glom Filt Rate - PINF [facility] Comment on above: These results are not intended for use in patients <18 years of age. eGFR results are calculated without a race factor using the 2020 CKD-EPI equation. Careful clinical correlation is recommended, particularly when comparing to results calculated using previous equations. The CKD-EPI equation is less accurate in patients with extremes of muscle mass, extra-renal metabolism of creatine, excessive creatine ingestion, or following therapy that affects renal tubular secretion. Glucose [Mass/Vol] 83 mg/dL 74 - 99 mg/dL [facility] Interpretation and review of laboratory results Abnormal [facility] Potassium [Moles/Vol] 3.3 mmol/L Low 3.7 - 5.3 mmol/L [facility] Protein [Mass/Vol] 5.8 g/dL Low 6.6 - 8.7 g/dL [facility] Sodium [Moles/Vol] 139 mmol/L 136 - 145 mmol/L [facility] Urea nitrogen [Mass/Vol] 12 mg/dL 6 - 20 mg/dL [facility] Urea nitrogen/Creatinine [Mass ratio] 24 mg/mg High 9 - 20 [facility] EKG Rhythm Stripon [facility] Magnesiumon 04-12-2024 Magnesium [Mass/Vol] 1.7 mg/dL 1.6 - 2 .6 mg/dL [facility] Magnesium [Mass/Vol] 1.7 mg/dL Normal 1.6-2.6 [facility] Comment on above: Performed By: #### C DP #### [facility] [address] [place] [address] Pattern Checker: Lakhwinder Tim MD SURGICAL PATHOLOGY REPORTon 04-12-2024 Surgical Pathology Report Path Number: [id number] -- Diagnosis -- A. APPENDIX, APPENDECTOMY: Unremarkable appendix with minimal serosal adhesions. Sara Genao M.D. Electronically Signed Out kmg2/04/12/2024 Clinical Information Pre-Op Diagnosis: PERITONEAL CAVITY FREE AIR Operative Findings: APPENDIX Operation Performed: LAPAROTOMY EXPLORATORY, APPENDECTOMY, VAGINAL CUFF DEHISCENCE REPAIR kb Source of Specimen A: APPENDIX Gross Description BARBRA CLAROS APPENDIX Received in formalin is an 8.4 cm in length x 0.6 cm in diameter intact vermiform appendix. The serosa is lizama, finely vascularized and smooth. There is moderate mesoappendix. Sectioning reveals a focally dilated lumen of the distal tip lined by lizama, fibrotic mucosa. Within the lumen is brown fecal material. No lesions or areas of hyperemia are identified. No perforations or tears are identified. Totally embedded 4c with the distal tip and margin in 1. silvano Saucedo/kb2:04/11/2024 Microscopic Description Microscopic examination performed. Processing Lab: [address] [address] Interpretation Performed at [address] [address] SURGICAL PATHOLOGY CONSULTATION Patient Name: BARBRA CLAROS [facility] Rec: [id number] [facility] [employer] [facility] ANATOMIC PATHOLOGY [address] [place] [address]. [place], [place] [address] [facility] CBC auto differentialon 03-20 Basophils (Bld) [#/Vol] 0.00 10*3/uL [facility] Basophils/100 WBC (Bld) 0 % 0 - 2 % [facility] Eosinophils (Bld) [#/Vol] 0.00 10*3/uL [facility] Eosinophils/100 WBC (Bld) 0 % Low 1 - 4 % [facility] Erythrocyte distribution width (RBC) [Ratio] 13.7 % 11.8 - 14.4 % [facility] Hematocrit (Bld) [Volume fraction] 34.4 % Low 36.3 - 47.1 % [facility] Hemoglobin (Bld) [Mass/Vol] 11.1 g/dL Low 11.9 - 15.1 g/dL [facility] Immature granulocytes (Bld) [#/Vol] 0.00 10*3/uL [facility] Immature granulocytes/100 WBC (Bld) 0 % 0 [facility] Interpretation and review of laboratory results Abnormal [facility] Lymphocytes/100 WBC (Bld) 8 % Low 24 - 43 % [facility] Lymphocytes/100 WBC (Bld) 0.75 % Low [facility] (RBC) [Entitic mass] 28.2 pg 25.2 - 33.5 pg [facility] MCHC (RBC) [Mass/Vol] 32.3 g/dL 28.4 - 34.8 g/dL [facility] MCV (RBC) [Entitic vol] 87.3 fL 82.6 - 102.9 fL [facility] Monocytes/100 WBC (Bld) 1 % Low 3 - 12 % [facility] Monocytes/100 WBC (Bld) 0.09 % Low [facility] Morphology Clinton (Bld) [Interp] Platelet scan shows Normal Platelets [facility] Neutrophils/100 WBC (Bld) 91 % High 36 - 65 % [facility] Nucleated RBC/100 WBC (Bld) [Ratio] 0.0 % 0.0 per 100 WBC [facility] Platelet mean volume (Bld) [Entitic vol] 10.8 fL 8.1 - 13.5 fL [facility] Platelets (Bld) [#/Vol] 170 10*3/uL [facility] RBC (Bld) [#/Vol] 3.94 10*6/uL Low 3.95 - 5.1 1 m/uL [facility] Segmented neutrophils/100 WBC (Bld) 8.56 % High [facility] WBC other (Bld) [#/Vol] 9.4 [facility] CBC with Diffon 04-11-2024 Abs. Basophil 0.00 k/uL Normal 0.0-0.2 [facility] Comment on above: Performed By: #### C TOM Mckeon, CDP #### [facility] [address] [place] [address] [place] [address] Pattern Checker: Lakhwinder Tim MD Abs.Imm.Granulocyte 0.00 k/uL Normal 0.00-0.30 [facility] Comment on above: Performed By: #### C PTOM, CDP #### [facility] [address] [place] [address] Pattern Checker: Lakhwinder Tim MD Abs.Neutrophil (Seg) 8.56 k/uL High 1.50-8.10 [facility] Comment on above: Performed By: #### C P, LIP, CDP #### [facility] [address] [place] [address] [place] [address] Pattern Checker: Lakhwinder Tim MD Basophils/100 WBC (Bld) 0 % Normal 0-2 [facility] Comment on above: Performed By: #### C P, LIP, CDP #### [address] [place] [address] Pattern Checker: Lakhwinder Tim MD Eosinophils (Bld) [#/Vol] 0.00 10*3/uL Normal 0.00-0.44 [facility] Comment on above: Performed By: #### C P, LIP, CDP #### [address] [place] [address] Pattern Checker: Lakhwinder Tim MD Eosinophils/100 WBC (Bld) 0 % Low 1-4 [facility] Comment on above: Performed By: #### C P, LIP, CDP #### [address] [place] [address] Pattern Checker: Lakhwinder Tim MD Immature granulocytes/100 WBC (Bld) 0 % Normal 0 [facility] Comment on above: Performed By: #### C P, LIP, CDP #### [address] [place], [facility]83 Pattern Checker: Lakhwinder Tim MD Lymphocytes (Bld) [#/Vol] 0.75 10*3/uL Low 1.10-3.70 [facility] Comment on above: Performed By: #### C P, LIP, CDP #### [address] [place] [id number] Pattern Checker: Lakhwinder Tim MD Lymphocytes/100 WBC (Bld) 8 % Low 24-43 [facility] Comment on above: Performed By: #### C P, LIP, CDP #### [facility] [address] [place] [address] Pattern Checker: Lakhwinder Tim MD Monocytes (Bld) [#/Vol] 0.09 10*3/uL Low 0.10-1.20 [facility] Comment on above: Performed By: #### C P, LIP, CDP #### [facility] [address] [place] [address] Pattern Checker: Lakhwinder Tim MD Monocytes/100 WBC (Bld) 1 % Low 3-12 [facility] Comment on above: Performed By: #### C P, LIP, CDP #### [address] [place], [facility]83 Pattern Checker: Lakhwinder Tim MD Morphology Clinton (Bld) [Interp] Platelet scan shows Normal Platelets Normal [facility] Comment on above: Performed By: #### C P, LIP, CDP #### [address] [place] [address] Pattern Checker: Lakhwinder Tim MD Neutrophil (Seg) 91 % High 36-65 [facility] Comment on above: Performed By: #### C P, LIP, CDP #### [address] [place] [address] Pattern Checker: Lakhwinder Tim MD Erythrocyte distribution width (RBC) [Ratio] 13.7 % Normal 11.8-14.4 [facility] Comment on above: Performed By: #### C P, LIP, CDP #### [address] [place], [place] [id number] Pattern Checker: Lakhwinder Tim MD Hematocrit (Bld) [Volume fraction] 34.4 % Low 36.3-47.1 [facility] Comment on above: Performed By: #### C P, LIP, CDP #### [address] [place] [id number] Pattern Checker: Lakhwinder Tim MD Hemoglobin (Bld) [Mass/Vol] 11.1 g/dL Low 11.9-15.1 [facility] Comment on above: Performed By: #### C P, LIP, CDP #### [address] [place], [place] [address]83 Pattern Checker: Lakhwinder Tim MD MCH (RBC) [Entitic mass] 28.2 pg Normal 25.2-33.5 [facility] Comment on above: Performed By: #### C P, LIP, CDP #### [address] [place] [id number] Pattern Checker: Lakhwinder Tim MD MCHC (RBC) [Mass/Vol] 32.3 g/dL Normal 28.4-34.[address] [facility] Comment on above: Performed By: #### C P, LIP, CDP #### [address] [place] [id number] Pattern Checker: Lakhwinder Tim MD MCV (RBC) [Entitic vol] 87.3 fL Normal 82.6-102.9 [facility] Comment on above: Performed By: #### C P, LIP, CDP #### [address] [place] [id number] Pattern Checker: Lakhwinder Tim MD NRBC Automated 0.0 per 100 WBC Normal 0.0 [facility] Comment on above: Performed By: #### C P, LIP, CDP #### [address] [place] [address] Pattern Checker: Lakhwinder Tim MD Platelet mean volume (Bld) [Entitic vol] 10.8 fL Normal 8.1-13.5 [facility] Comment on above: Performed By: #### C P, LIP, CDP #### [address] [place], [facility]83 Pattern Checker: Lakhwinder Tim MD Platelets (Bld) [#/Vol] 170 10*3/uL Normal 138-453 [facility] Comment on above: Performed By: #### C P, LIP, CDP #### [facility] [address] [place] [address] Pattern Checker: Lakhwinder Tim MD RBC (Bld) [#/Vol] 3.94 10*6/uL Low 3.95-5.11 [facility] Comment on above: Performed By: #### C P, LIP, CDP #### [facility] [address] [place] [address] Pattern Checker: Lakhwinder Tim MD WBC (Bld) [#/Vol] 9.4 10*3/uL Normal 3.5-11.3 [facility] Comment on above: Performed By: #### C P, LIP, CDP #### [facility] [address] [place], [facility]83 Pattern Checker: Lakhwinder Tim MD Comp Metabolic Pr/rfx MGon 1 0- Albumin [Mass/Vol] 3.6 g/dL Normal 3.5-5.2 [facility] Comment on above: Performed By: #### C P, LIP, CDP #### [facility] [address] [place], [place] [address]83 Pattern Checker: Lakhwinder Tim MD Albumin/Glob Ratio 1.2 Normal 1.0-2.5 [facility] Comment on above: Performed By: #### C P, LIP, CDP #### [facility] [address] [place] [address] Pattern Checker: Lakhwinder Tim MD Alkaline Phos 49 U/L Normal 35-104 [facility] Comment on above: Performed By: #### C P, LIP, CDP #### [facility] [address] [place], [facility]83 Pattern Checker: Lakhwinder Tim MD ALT [Catalytic activity/Vol] 13 U/L Normal 10-35 [facility] Comment on above: Performed By: #### C P, LIP, CDP #### [facility] [address] [place], [place] 9[address]83 Pattern Checker: Lakhwinder Tim MD Anion gap [Moles/Vol] 9 mmol/L Normal 9-[address] [facility] Comment on above: Performed By: #### C P, LIP, CDP #### [facility] [address] [place], [place] 5232783 Pattern Checker: Lakhwinder Tim MD AST [Catalytic activity/Vol] 13 U/L Normal 10-35 [facility] Comment on above: Performed By: #### C P, LIP, CDP #### [facility] [address] [place], [place] [id number] Pattern Checker: Lakhwinder Tim MD Bilirubin [Mass/Vol] 0.7 mg/dL Normal 0.00-1.20 [facility] Comment on above: Performed By: #### C P, LIP, CDP #### [facility] [address] [place], [place] 100[address]83 Pattern Checker: Lakhwinder Tim MD BUN/CRE Ratio 18 Normal 9-20 [facility] Comment on above: Performed By: #### C P, LIP, CDP #### [facility] [address] [place], [place] 8[address]83 Pattern Checker: Lakhwinder Tim MD Calcium [Mass/Vol] 8.4 mg/dL Low 8.6-10.4 [facility] Comment on above: Performed By: #### C P, LIP, CDP #### [facility] [address] [place], [place] 8[address]1983 Pattern Checker: Lakhwinder Tim MD Chloride [Moles/Vol] 105 mmol/L Normal 98-107 [facility] Comment on above: Performed By: #### C P, LIP, CDP #### [facility] [address] [place] [address] Pattern Checker: Lakhwinder Tim MD CO2 [Moles/Vol] 23 mmol/L Normal 20-31 [facility] Comment on above: Performed By: #### C P, LIP, CDP #### [facility] [address] [place] [address] Pattern Checker: Lakhwinder Tim MD Creatinine [Mass/Vol] 0.5 mg/dL Normal 0.50-0.[address] [facility] Comment on above: Performed By: #### C P LIP, CDP #### [facility] [address] [place] [address] Pattern Checker: Lakhwinder Tim MD GFR/1.73 sq M.predicted among non-blacks MDRD (S/P/Bld) [Vol rate/Area] mL/min/{1.73_m2} Normal >60 [facility] Comment on above: Result Comment: These results are not intended for use in patients <18 years of age. eGFR results are calculated without a race factor using the 2020 CKD-EPI equation. Careful clinical correlation is recommended, particularly when comparing to results calculated using previous equations. The CKD-EPI equation is less accurate in patients with extremes of muscle mass, extra-renal metabolism of creatine, excessive creatine ingestion, or following therapy that affects renal tubular secretion. Performed By: #### C P, LIP, CDP #### [facility] [address] [place] [address] Pattern Checker: Lakhwinder Tim MD Glucose [Mass/Vol] 136 mg/dL High 74-99 [facility] Comment on above: Performed By: #### C P LIP, CDP #### [facility] [address] [place] [address] Pattern Checker: Lakhwinder Tim MD Potassium [Moles/Vol] 4.0 mmol/L Normal 3.7-5.[address] [facility] Comment on above: Performed By: #### C P, LIP, CDP #### [facility] [address] [place] [address] Pattern Checker: Lakhwinder Tim MD Protein [Mass/Vol] 6.6 g/dL Normal 6.6-8.7 [facility] Comment on above: Performed By: #### C P, LIP, CDP #### [facility] [address] [place] [address] Pattern Checker: Lakhwinder Tim MD Sodium [Moles/Vol] 137 mmol/L Normal 136-145 [facility] Comment on above: Performed By: #### C P, LIP, CDP #### [facility] [address] [place] [address] Pattern Checker: Lakhwinder Tim MD Urea nitrogen [Mass/Vol] 9 mg/dL Normal 6-20 [facility] Comment on above: Performed By: #### C P, LIP, CDP #### [facility] [address] [place] [address] Pattern Checker: Lakhwinder Tim MD Comprehensive Metabolic Pane l w/ Reflex to MGon 04-11-2024 Albumin [Mass/Vol] 3.6 g/dL 3.5 - 5.2 g/dL [facility] Albumin/Globulin [Mass ratio] 1.2 {ratio} 1.0 - 2.5 [facility] ALP [Catalytic activity/Vol] 49 U/L 35 - 104 U/L [facility] ALT [Catalytic activity/Vol] 13 U/L 10 - 35 U/L [facility] Anion gap [Moles/Vol] 9 mmol/L 9 - 16 mmol/L [facility] AST [Catalytic activity/Vol] 13 U/L 10 - 35 U/L [facility] Bilirubin [Mass/Vol] 0.7 mg/dL 0.00 - 1.20 mg/dL [facility] Calcium [Mass/Vol] 8.4 mg/dL Low 8.6 - 10. 4 mg/dL [facility] Chloride [Moles/Vol] 105 mmol/L 98 - 10 7 mmol/L [facility] CO2 [Moles/Vol] 23 mmol/L 20 - 31 mmol/L [facility] Creatinine [Mass/Vol] 0.5 mg/dL 0.50 - 0.90 mg/dL [facility] Love Staples Rate - PINF [facility] Comment on above: These results are not intended for use in patients <18 years of age. eGFR results are calculated without a race factor using the 2020 CKD-EPI equation. Careful clinical correlation is recommended, particularly when comparing to results calculated using previous equations. The CKD-EPI equation is less accurate in patients with extremes of muscle mass, extra-renal metabolism of creatine, excessive creatine ingestion, or following therapy that affects renal tubular secretion. Glucose [Mass/Vol] 136 mg/dL High 74 - 99 mg/dL [facility] Interpretation and review of laboratory results Abnormal [facility] Potassium [Moles/Vol] 4.0 mmol/L 3.7 - 5.3 mmol/L [facility] Protein [Mass/Vol] 6.6 g/dL 6.6 - 8.7 g/dL [facility] Sodium [Moles/Vol] 137 mmol/L 136 - 145 mmol/L [facility] Urea nitrogen [Mass/Vol] 9 mg/dL 6 - 20 mg/dL [facility] Urea nitrogen/Creatinine [Mass ratio] 18 mg/mg 9 - 20 [facility] EKG 12 LeadOrdered By: Haley mcghee on 04-11-2024 Atrial Rate 99 BPM [facility] Work Phone: P Catron 46 degrees [facility] Work Phone: P-R Interval 148 ms [facility] Work Phone: Q-T Interval 362 ms [facility] Work Phone: QRS Duration 96 ms [facility] Work Phone: QTc Calculation (Bazett) 464 ms [facility] Work Phone: R Catron 33 degrees [facility] Work Phone: T Catron 37 degrees [facility] Work Phone: Ventricular Rate 99 BPM Srinivasa cid [employer] Work Phone: [facility] Work Phone: EKG 12 Leadon 04-11-2024 Poor data qualit y, interpretation may be adversely affected Normal sinus rhythm Incomplete right bundle branch block Nonspecific T wave abnormality Prolonged QT Abnormal ECG ECG not diagnostic for Acute Coronary Syndrome; consider clinical findings When compared with ECG of 15-AUG-2023 19:40, Poor data quality in current ECG precludes serial comparison Confirmed by Haley Hicks MD ([id number]) on 04/11/2024 8:01:06 AM [facility] Haley Hicks MD - 04/11/2024 Poor data quality, interpretation may be adversely affected Normal sinus rhythm Incomplete right bundle branch block Nonspecific T wave abnormality Prolonged QT Abnormal ECG ECG not diagnostic for Acute Coronary Syndrome; consider clinical findings When compared with ECG of 15-AUG-2023 19:40, Poor data quality in current ECG precludes serial comparison Confirmed by Haley Hicks MD ([id number]) on 04/11/2024 8:01:06 AM [facility] EKG Rhythm Stripon [facility] Surgical Pathology Reporton 04-11-2024 Surgical Pathology Report (NOTE) Path Number: [id number] -- Diagnosis -- A. APPENDIX, APPENDECTOMY: Unremarkable appendix with minimal serosal adhesions. Sara Genao M.D. Electronically Signed Out kmg2/04/12/2024 Clinical Information Pre-Op Diagnosis: PERITONEAL CAVITY FREE AIR Operative Findings: APPENDIX Operation Performed: LAPAROTOMY EXPLORATORY, APPENDECTOMY, VAGINAL CUFF DEHISCENCE REPAIR kb Source of Specimen A: APPENDIX Gross Description BARBRA CLAROS, APPENDIX Received in formalin is an 8.4 cm in length x 0.6 cm in diameter intact vermiform appendix. The serosa is lizama, finely vascularized and smooth. There is moderate mesoappendix. Sectioning reveals a focally dilated lumen of the distal tip lined by lizama, fibrotic mucosa. Within the lumen is brown fecal material. No lesions or areas of hyperemia are identified. No perforations or tears are identified. Totally embedded 4c with the distal tip and margin in 1. tm Kay Saucedo/kb2:04/11/2024 Microscopic Description Microscopic examination performed. Processing Lab: [address] [address] Interpretation Performed at [address] [address] SURGICAL PATHOLOGY CONSULTATION Patient Name: BARBRA CLAROS [facility] Rec: [id number] [facility] ANATOMIC PATHOLOGY [facility]. [place], [place] [address] Normal [facility] TYPE AND SCREENon 04-11-2024 ABO and Rh group Nom (Bld) Blood group O Rh(D) positive [facility] Arm Band Number [id number] [facility] Blood Bank Sample Expiration 04/13/2024,2359 [facility] Blood group antibodies identified Nom Negative [facility] Type + Screenon 04-11-2024 Type + Screen Sample Expiration 04/13/2024,2359 Arm Band Number [id number] ABO/Rh(D) O POSITIVE Antibody Screen NEGATIVE [facility] Comment on above: Performed By: #### C DP #### [facility] [address] [place], [place] [id number] Pattern Checker: Lakhwinder Tim MD Basic Metabolic Panelon 03-20 Anion gap [Moles/Vol] 10 mmol/L 9 - 16 mmol/L [facility] Calcium [Mass/Vol] 9.0 mg/dL 8.6 - 10. 4 mg/dL [facility] Chloride [Moles/Vol] 103 mmol/L 98 - 10 7 mmol/L [facility] CO2 [Moles/Vol] 26 mmol/L 20 - 31 mmol/L [facility] Creatinine [Mass/Vol] 0.5 mg/dL 0.50 - 0.90 mg/dL [facility] Est, Love Van Rate - PINF [facility] Comment on above: These results are not intended for use in patients <18 years of age. eGFR results are calculated without a race factor using the 2020 CKD-EPI equation. Careful clinical correlation is recommended, particularly when comparing to results calculated using previous equations. The CKD-EPI equation is less accurate in patients with extremes of muscle mass, extra-renal metabolism of creatine, excessive creatine ingestion, or following therapy that affects renal tubular secretion. Glucose [Mass/Vol] 88 mg/dL 74 - 99 mg/dL [facility] Interpretation and review of laboratory results Abnormal [facility] Potassium [Moles/Vol] 3.7 mmol/L 3.7 - 5.3 mmol/L [facility] Sodium [Moles/Vol] 139 mmol/L 136 - 145 mmol/L [facility] Urea nitrogen [Mass/Vol] 11 mg/dL 6 - 20 mg/dL [facility] Urea nitrogen/Creatinine [Mass ratio] 22 mg/mg High - [facility] Basic Metabolic Profon 04-10 Anion gap [Moles/Vol] 10 mmol/L Normal 9-[address] [facility] Comment on above: Performed By: #### C P, LIP, CDP #### [facility] [address] [place] [address] Pattern Checker: Lakhwinder Tim MD BUN/CRE Ratio 22 High - [facility] Comment on above: Performed By: #### C P, LIP, CDP #### [facility] [address] [place] [address] Pattern Checker: Lakhwinder Tim MD Calcium [Mass/Vol] 9.0 mg/dL Normal 8.6-10.4 [facility] Comment on above: Performed By: #### C P, LIP, CDP #### [facility] [address] [place] [address] Pattern Checker: Lakhwinder Tim MD Chloride [Moles/Vol] 103 mmol/L Normal 98-107 [facility] Comment on above: Performed By: #### C P, LIP, CDP #### [facility] [address] [place], [place] [id number] Pattern Checker: Lakhwinder Tim MD CO2 [Moles/Vol] 26 mmol/L Normal 20-31 [facility] Comment on above: Performed By: #### C P, LIP, CDP #### [facility] [address] [place], [place] [id number] Pattern Checker: Lakhwinder Tim MD Creatinine [Mass/Vol] 0.5 mg/dL Normal 0.50-0.[address] [facility] Comment on above: Performed By: #### C P, LIP, CDP #### [facility] [address] [place], [place] [id number] Pattern Checker: Lakhwinder Tim MD GFR/1.73 sq M.predicted among non-blacks MDRD (S/P/Bld) [Vol rate/Area] mL/min/{1.73_m2} Normal >60 [facility] Comment on above: Result Comment: These results are not intended for use in patients <18 years of age. eGFR results are calculated without a race factor using the 2020 CKD-EPI equation. Careful clinical correlation is recommended, particularly when comparing to results calculated using previous equations. The CKD-EPI equation is less accurate in patients with extremes of muscle mass, extra-renal metabolism of creatine, excessive creatine ingestion, or following therapy that affects renal tubular secretion. Performed By: #### C P, LIP, CDP #### [facility] [address] [place] [id number] Pattern Checker: Lakhwinder Tim MD Glucose [Mass/Vol] 88 mg/dL Normal 74-99 [facility] Comment on above: Performed By: #### C P, LIP, CDP #### [facility] [address] [place] [address] Pattern Checker: Lakhwinder Tim MD Potassium [Moles/Vol] 3.7 mmol/L Normal 3.7-5.[address] [facility] Comment on above: Performed By: #### C P, LIP, CDP #### [facility] [address] [place] [address] Pattern Checker: Lakhwinder Tim MD Sodium [Moles/Vol] 139 mmol/L Normal 136-145 [facility] Comment on above: Performed By: #### C P, LIP, CDP #### [facility] [address] [place] [address] Pattern Checker: Lakhwinder Tim MD Urea nitrogen [Mass/Vol] 11 mg/dL Normal 6-20 [facility] Comment on above: Performed By: #### C P, LIP, CDP #### [facility] [address] [place] [address] Pattern Checker: Lakhwinder Tim MD CBC with Auto Differentialon 04-10-2024 Basophils (Bld) [#/Vol] [facility] Basophils/100 WBC (Bld) 0 % 0 - 2 % [facility] Eosinophils (Bld) [#/Vol] [facility] Eosinophils/100 WBC (Bld) 0 % Low 1 - 4 % [facility] Erythrocyte distribution width (RBC) [Ratio] 13.8 % 11.8 - 14.4 % [facility] Hematocrit (Bld) [Volume fraction] 36.3 % 36.3 - 47.1 % [facility] Hemoglobin (Bld) [Mass/Vol] 11.7 g/dL Low 11.9 - 15.1 g/dL [facility] Immature granulocytes (Bld) [#/Vol] [facility] Immature granulocytes/100 WBC (Bld) 0 % 0 [facility] Interpretation and review of laboratory results Abnormal [facility] Lymphocytes/100 WBC (Bld) 17 % Low 24 - 43 % [facility] Lymphocytes/100 WBC (Bld) 1.52 % [facility] MCH (RBC) [Entitic mass] 28.1 pg 25.2 - 33.5 pg [facility] MCHC (RBC) [Mass/Vol] 32.2 g/dL 28.4 - 34.8 g/dL [facility] MCV (RBC) [Entitic vol] 87.3 fL 82.6 - 102.9 fL [facility] Monocytes/100 WBC (Bld) 7 % 3 - 12 % [facility] Monocytes/100 WBC (Bld) 0.66 % [facility] Neutrophils/100 WBC (Bld) 76 % High 36 - 65 % [facility] Nucleated RBC/100 WBC (Bld) [Ratio] 0.0 % 0.0 per 100 WBC [facility] Platelet mean volume (Bld) [Entitic vol] 10.5 fL 8.1 - 13.5 fL [facility] Platelets (Bld) [#/Vol] 192 10*3/uL [facility] RBC (Bld) [#/Vol] 4.16 10*6/uL 3.95 - 5.1 1 m/uL [facility] Segmented neutrophils/100 WBC (Bld) 6.88 % [facility] WBC other (Bld) [#/Vol] 9.1 [facility] CBC with Diffon 04-10-2024 Abs. Basophil <0.03 Normal 0.00-0.20 [facility] Comment on above: Performed By: #### C PTOM, CDP #### [facility] [address] [place] [address] Pattern Checker: Lakhwinder Tim MD Abs. Eosinophil <0.03 Normal 0.00-0.44 [facility] Comment on above: Performed By: #### C PTOM, CDP #### [facility] [address] [place] [address] Pattern Checker: Lakhwinder Tim MD Abs.Imm.Granulocyte <0.03 Normal 0.00-0.30 [facility] Comment on above: Performed By: #### C P, LIP, CDP #### [address] [place], [place] [id number] Pattern Checker: Lakhwinder Tim MD Abs.Neutrophil (Seg) 6.88 k/uL Normal 1.50-8.10 [facility] Comment on above: Performed By: #### C P, LIP, CDP #### [address] [place], [facility]83 Pattern Checker: Lakhwinder Tim MD Basophils/100 WBC (Bld) 0 % Normal 0-2 [facility] Comment on above: Performed By: #### C P, LIP, CDP #### [address] [place], [facility]83 Pattern Checker: Lakhwinder Tim MD Eosinophils/100 WBC (Bld) 0 % Low 1-4 [facility] Comment on above: Performed By: #### C P, LIP, CDP #### [address] [place], [facility]83 Pattern Checker: Lakhwinder Tim MD Erythrocyte distribution width (RBC) [Ratio] 13.8 % Normal 11.8-14.4 [facility] Comment on above: Performed By: #### C P, LIP, CDP #### [address] [place], [facility]83 Pattern Checker: Lakhwinder Tim MD Hematocrit (Bld) [Volume fraction] 36.3 % Normal 36.3-47.1 [facility] Comment on above: Performed By: #### C P, LIP, CDP #### [address] [place], [facility]83 Pattern Checker: Lakhwinder Tim MD Hemoglobin (Bld) [Mass/Vol] 11.7 g/dL Low 11.9-15.1 [facility] Comment on above: Performed By: #### C P, LIP, CDP #### [address] [place], [place] [id number] Pattern Checker: Lakhwinder Tim MD Immature granulocytes/100 WBC (Bld) 0 % Normal 0 [facility] Comment on above: Performed By: #### C P, LIP, CDP #### [address] [place], [facility]83 Pattern Checker: Lakhwinder Tim MD Lymphocytes (Bld) [#/Vol] 1.52 10*3/uL Normal 1.10-3.70 [facility] Comment on above: Performed By: #### C P, LIP, CDP #### [address] [place], [place] [address] Pattern Checker: Lakhwinder Tim MD Lymphocytes/100 WBC (Bld) 17 % Low 24-43 [facility] Comment on above: Performed By: #### C P, LIP, CDP #### [address] [place], [facility]83 Pattern Checker: Lakhwinder Tim MD MCH (RBC) [Entitic mass] 28.1 pg Normal 25.2-33.5 [facility] Comment on above: Performed By: #### C P, LIP, CDP #### [address] [place], [facility]83 Pattern Checker: Lakhwinder Tim MD MCHC (RBC) [Mass/Vol] 32.2 g/dL Normal 28.4-34.[address] [facility] Comment on above: Performed By: #### C P, LIP, CDP #### [address] [place], [place] [id number] Pattern Checker: Lakhwinder Tim MD MCV (RBC) [Entitic vol] 87.3 fL Normal 82.6-102.9 [facility] Comment on above: Performed By: #### C P, LIP, CDP #### [address] [place] [id number] Pattern Checker: Lakhwinder Tim MD Monocytes (Bld) [#/Vol] 0.66 10*3/uL Normal 0.10-1.20 [facility] Comment on above: Performed By: #### C P, LIP, CDP #### [facility] [address] [place] [address] Pattern Checker: Lakhwinder Tim MD Monocytes/100 WBC (Bld) 7 % Normal 3-12 [facility] Comment on above: Performed By: #### C P, LIP, CDP #### [facility] [address] [place] [address] Pattern Checker: Lakhwinder Tim MD Neutrophil (Seg) 76 % High 36-65 [facility] Comment on above: Performed By: #### C P, LIP, CDP #### [address] [place], [place] [address] Pattern Checker: Lakhwinder Tim MD NRBC Automated 0.0 per 100 WBC Normal 0.0 [facility] Comment on above: Performed By: #### C P, LIP, CDP #### [address] [place], [facility]83 Pattern Checker: Lakhwinder Tim MD Platelet mean volume (Bld) [Entitic vol] 10.5 fL Normal 8.1-13.5 [facility] Comment on above: Performed By: #### C P, LIP, CDP #### [facility] [address] [place], [facility]83 Pattern Checker: Lakhwinder Tim MD Platelets (Bld) [#/Vol] 192 10*3/uL Normal 138-453 [facility] Comment on above: Performed By: #### C P, LIP, CDP #### [facility] [address] [place], [facility]83 Pattern Checker: Lakhwinder Tim MD RBC (Bld) [#/Vol] 4.16 10*6/uL Normal 3.95-5.11 [facility] Comment on above: Performed By: #### C TOM Mckeon, CDP #### [facility] [address] [place], [place] [id number] Pattern Checker: Lakhwinder Tim MD WBC (Bld) [#/Vol] 9.1 10*3/uL Normal 3.5-11.3 [facility] Comment on above: Performed By: #### C TOM Mckeon, CDP #### [facility] [address] [place], [place] [id number] Pattern Checker: Lakhwinder Tim MD CT ABDOMEN PELVIS W IV CONTR Marichuy 04-10-2024 CT ABDOMEN PELVIS W IV CONTRAST EXAMINATION: CT OF THE ABDOMEN AND PELVIS WITH CONTRAST 04/10/2024 6:22 pm TECHNIQUE: CT of the abdomen and pelvis was performed with the administration of intravenous contrast. Multiplanar reformatted images are provided for review. Automated exposure control, iterative reconstruction, and/or weight based adjustment of the mA/kV was utilized to reduce the radiation dose to as low as reasonably achievable. COMPARISON: CT abdomen and pelvis 04/02/2024 HISTORY: ORDERING SYSTEM PROVIDED HISTORY: pelvic pain TECHNOLOGIST PROVIDED HISTORY: pelvic pain Decision Support Exception - unselect if not a suspected or confirmed emergency medical condition->Emergency Medical Condition (MA) FINDINGS: Lower Chest: Imaged lung bases are unremarkable. Organs: Liver is normal in contour. The gallbladder is unremarkable. No biliary ductal dilatation. The spleen, pancreas and adrenal glands are unremarkable. There are symmetric nephrograms. No hydronephrosis. GI/Bowel/Pelvis: The stomach is unremarkable. The small and large bowel are nondilated. There has been development of wall thickening of small bowel loops as well as the sigmoid colon within the pelvis with surrounding fat stranding and inflammatory change. Suspected prominent bowel diverticulum within the right hemipelvis adjacent to distal small bowel, measuring approximately 1.6 cm. There is poorly marginated hypodensity within the adjacent right hemipelvis measuring approximately 2.9 x 2.3 cm. The uterus is surgically absent. Urinary bladder is unremarkable. The appendix is normal. Peritoneum/Retroperitoneu m: There are few small foci of air within the right hemipelvis and air anterior pelvis as well as pneumoperitoneum in the upper abdomen. Small amount of free pelvic fluid. Bones/Soft Tissues: No acute bony or soft tissue abnormality identified. IMPRESSION: 1. New pneumoperitoneum consistent with perforated viscus. Wall thickening of small bowel loops as well as the sigmoid colon within the pelvis with surrounding inflammatory change. Suspected prominent bowel diverticulum within the right hemipelvis; findings could be related to perforated acute diverticulitis with associated reactive change or enteritis. 2. Hypodensity in the adjacent right hemipelvis measuring 2.9 x 2.3 cm could represent abscess versus infected or inflamed ovarian cyst. 3. Small amount of free pelvic fluid. Findings were discussed with ELA Laird at 8:04 p.m. on 04/10/2024. Interpreted by: Esther Coates MD Signed by: Esther Coates MD 04/10/24 Edited Result - FINAL Normal [facility] CT Abdomen and Pelvis W cont rast Alexsander 04-10-2024 1. New pneumoperiton eum consistent with perforated viscus. Wall thickening of small bowel loops as well as the sigmoid colon within the pelvis with surrounding inflammatory change. Suspected prominent bowel diverticulum within the right hemipelvis; findings could be related to perforated acute diverticulitis with associated reactive change or enteritis. 2. Hypodensity in the adjacent right hemipelvis measuring 2.9 x 2.3 cm could represent abscess versus infected or inflamed ovarian cyst. 3. Small amount of free pelvic fluid. Findings were discussed with ELA Laird at 8:04 p.m. on 04/10/2024. [facility] RIS CONSOLIDATED EXAMINATION: CT OF THE ABDOMEN AND PELVIS WITH CONTRAST 04/10/2024 6:22 pm TECHNIQUE: CT of the abdomen and pelvis was performed with the administration of intravenous contrast. Multiplanar reformatted images are provided for review. Automated exposure control, iterative reconstruction, and/or weight based adjustment of the mA/kV was utilized to reduce the radiation dose to as low as reasonably achievable. COMPARISON: CT abdomen and pelvis 04/02/2024 HISTORY: ORDERING SYSTEM PROVIDED HISTORY: pelvic pain TECHNOLOGIST PROVIDED HISTORY: pelvic pain Decision Support Exception - unselect if not a suspected or confirmed emergency medical condition->Emergency Medical Condition (MA) FINDINGS: Lower Chest: Imaged lung bases are unremarkable. Organs: Liver is normal in contour. The gallbladder is unremarkable. No biliary ductal dilatation. The spleen, pancreas and adrenal glands are unremarkable. There are symmetric nephrograms. No hydronephrosis. GI/Bowel/Pelvis: The stomach is unremarkable. The small and large bowel are nondilated. There has been development of wall thickening of small bowel loops as well as the sigmoid colon within the pelvis with surrounding fat stranding and inflammatory change. Suspected prominent bowel diverticulum within the right hemipelvis adjacent to distal small bowel, measuring approximately 1.6 cm. There is poorly marginated hypodensity within the adjacent right hemipelvis measuring approximately 2.9 x 2.3 cm. The uterus is surgically absent. Urinary bladder is unremarkable. The appendix is normal. Peritoneum/Retroperitoneu m: There are few small foci of air within the right hemipelvis and air anterior pelvis as well as pneumoperitoneum in the upper abdomen. Small amount of free pelvic fluid. Bones/Soft Tissues: No acute bony or soft tissue abnormality identified. PN RIS CONSOLIDATED Esther Coates MD - 04/10/2024 EXAMINATION: CT OF THE ABDOMEN AND PELVIS WITH CONTRAST 04/10/2024 6:22 pm TECHNIQUE: CT of the abdomen and pelvis was performed with the administration of intravenous contrast. Multiplanar reformatted images are provided for review. Automated exposure control, iterative reconstruction, and/or weight based adjustment of the mA/kV was utilized to reduce the radiation dose to as low as reasonably achievable. COMPARISON: CT abdomen and pelvis 04/02/2024 HISTORY: ORDERING SYSTEM PROVIDED HISTORY: pelvic pain TECHNOLOGIST PROVIDED HISTORY: pelvic pain Decision Support Exception - unselect if not a suspected or confirmed emergency medical condition->Emergency Medical Condition (MA) FINDINGS: Lower Chest: Imaged lung bases are unremarkable. Organs: Liver is normal in contour. The gallbladder is unremarkable. No biliary ductal dilatation. The spleen, pancreas and adrenal glands are unremarkable. There are symmetric nephrograms. No hydronephrosis. GI/Bowel/Pelvis: The stomach is unremarkable. The small and large bowel are nondilated. There has been development of wall thickening of small bowel loops as well as the sigmoid colon within the pelvis with surrounding fat stranding and inflammatory change. Suspected prominent bowel diverticulum within the right hemipelvis adjacent to distal small bowel, measuring approximately 1.6 cm. There is poorly marginated hypodensity within the adjacent right hemipelvis measuring approximately 2.9 x 2.3 cm. The uterus is surgically absent. Urinary bladder is unremarkable. The appendix is normal. Peritoneum/Retroperitoneu m: There are few small foci of air within the right hemipelvis and air anterior pelvis as well as pneumoperitoneum in the upper abdomen. Small amount of free pelvic fluid. Bones/Soft Tissues: No acute bony or soft tissue abnormality identified. IMPRESSION: 1. New pneumoperitoneum consistent with perforated viscus. Wall thickening of small bowel loops as well as the sigmoid colon within the pelvis with surrounding inflammatory change. Suspected prominent bowel diverticulum within the right hemipelvis; findings could be related to perforated acute diverticulitis with associated reactive change or enteritis. 2. Hypodensity in the adjacent right hemipelvis measuring 2.9 x 2.3 cm could represent abscess versus infected or inflamed ovarian cyst. 3. Small amount of free pelvic fluid. Findings were discussed with ELA Laird at 8:04 p.m. on 04/10/2024. [facility] Radiology Study observation (narrative) [facility] CT Abdomen and Pelvis W cont rast IVOrdered By: Esther Coates on 04-10-2024 [facility] Work Phone: Lactic Acidon 04-10-2024 Lactate (BldV) [Moles/Vol] 0.6 mmol/L 0.5 - 2.2 mmol/L [facility] Lactate [Moles/Vol] 0.6 mmol/L Normal 0.5-2.2 [facility] Comment on above: Performed By: #### C P, LIP, CDP #### [facility] [address] [place] [address] Pattern Checker: Lakhwinder Tim MD Microscopic Urinalysison Epithelial cells LM.HPF (Urine sed) [#/Area] 0 TO 2 [facility] Interpretation and review of laboratory results Abnormal [facility] Mucus Ql (Urine sed) TRACE Abnormal None [facility] RBC LM.HPF (Urine sed) [#/Area] 0 TO 2 [facility] WBC LM.HPF (Urine sed) [#/Area] 0 TO 2 [facility] UA w/Reflex Cultureon 2023 Bilirubin, SemiQt,Ur Negative Normal NEG [facility] Comment on above: Performed By: #### C P, LIP, CDP #### [facility] [address] [place] [address] Dr. [place], [facility]83 Pattern Checker: Lakhwinder Tim MD Blood, Urine TRACE Abnormal NEG [facility] Comment on above: Performed By: #### C P, LIP, CDP #### [address] [place] [address] Pattern Checker: Lakhwinder Tim MD Clarity (U) Clear Normal CLEAR [facility] Comment on above: Performed By: #### C P, LIP, CDP #### [address] [place], [facility]83 Pattern Checker: Lakhwinder Tim MD Color (U) Yellow Normal YEL [facility] Comment on above: Performed By: #### C P, LIP, CDP #### [address] [place], [facility]83 Pattern Checker: Lakhwinder Tim MD Glucose Ql (U) Negative Normal NEG [facility] Comment on above: Performed By: #### C P, LIP, CDP #### [address] [place], [facility]83 Pattern Checker: Lakhwinder Tim MD Ketones Ql (U) Negative Normal NEG [facility] Comment on above: Performed By: #### C P, LIP, CDP #### [address] [place] [id number] Pattern Checker: Lakhwinder Tim MD Leukocyte esterase Test strip Ql (U) Negative Normal NEG [facility] Comment on above: Performed By: #### C P, LIP, CDP #### [facility] [address] [place] [address] Pattern Checker: Lakhwinder Tim MD Nitrite,Ur Negative Normal NEG [facility] Comment on above: Performed By: #### C P, LIP, CDP #### [facility] [address] [place] [address] [place] [address] Pattern Checker: Lakhwinder Tim MD PH,Ur 6.0 Normal 5.0-9.0 [facility] Comment on above: Performed By: #### C P, LIP, CDP #### [address] [place] [address] Pattern Checker: Lakhwinder Tim MD Protein Ql (U) Negative Normal NEG [facility] Comment on above: Performed By: #### C P, LIP, CDP #### [address] [place] [address] Pattern Checker: Lakhwinder Tim MD Spec. Fackler,Ur 1.020 Normal 1.010-1.020 [facility] Comment on above: Performed By: #### C P, LIP, CDP #### [address] [place] [address] Pattern Checker: Lakhwinder Tim MD Urobilinogen,Ur Normal Normal 0.0-1.0 [facility] Comment on above: Performed By: #### C P, LIP, CDP #### [address] [place] [address] Pattern Checker: Lakhwinder Tim MD US NON OB TRANSVAGINAL W DOP PLERon 04-10-2024 US NON OB TRANSVAGINAL W DOPPLER EXAMINATION: PELVIC ULTRASOUND 04/10/2024 TECHNIQUE: Transvaginal pelvic duplex ultrasound using B-mode/mitchell scaled imaging and Doppler spectral analysis and color flow was obtained. COMPARISON: Correlation with concurrent CT, ultrasound from yesterday HISTORY: Acute pelvic pain. FINDINGS: Uterus: Surgically absent. Right Ovary: Measures 3.1 x 2.7 x 2.6 cm and contains a 1.6 x 1.6 x 1.2 cm dominant follicle. Normal arterial and venous Doppler flow. Left Ovary: Measures 2.1 x 1.8 x 1.3 cm and appears unremarkable. Normal arterial and venous Doppler flow. Free Fluid: None seen. IMPRESSION: Normal Doppler flow to the ovaries. The right ovary is not as enlarged when compared with the ultrasound from yesterday. Interpreted by: Arlette Steiner MD Signed by: Arlette Steiner MD 04/10/24 Final result Normal [facility] US Pelvis transvaginalon Normal Doppler flow to the ovaries. The right ovary is not as enlarged when compared with the ultrasound from yesterday. [facility] CONSOLIDATED EXAMINATION: PELVIC ULTRASOUND 04/10/2024 TECHNIQUE: Transvaginal pelvic duplex ultrasound using B-mode/mitchell scaled imaging and Doppler spectral analysis and color flow was obtained. COMPARISON: Correlation with concurrent CT, ultrasound from yesterday HISTORY: Acute pelvic pain. FINDINGS: Uterus: Surgically absent. Right Ovary: Measures 3.1 x 2.7 x 2.6 cm and contains a 1.6 x 1.6 x 1.2 cm dominant follicle. Normal arterial and venous Doppler flow. Left Ovary: Measures 2.1 x 1.8 x 1.3 cm and appears unremarkable. Normal arterial and venous Doppler flow. Free Fluid: None seen. [facility] CONSOLIDATED Arlette Steiner MD - 04/10/2024 EXAMINATION: PELVIC ULTRASOUND 04/10/2024 TECHNIQUE: Transvaginal pelvic duplex ultrasound using B-mode/mitchell scaled imaging and Doppler spectral analysis and color flow was obtained. COMPARISON: Correlation with concurrent CT, ultrasound from yesterday HISTORY: Acute pelvic pain. FINDINGS: Uterus: Surgically absent. Right Ovary: Measures 3.1 x 2.7 x 2.6 cm and contains a 1.6 x 1.6 x 1.2 cm dominant follicle. Normal arterial and venous Doppler flow. Left Ovary: Measures 2.1 x 1.8 x 1.3 cm and appears unremarkable. Normal arterial and venous Doppler flow. Free Fluid: None seen. IMPRESSION: Normal Doppler flow to the ovaries. The right ovary is not as enlarged when compared with the ultrasound from yesterday. [facility] Radiology Study observation (narrative) [facility] US Pelvis transvaginalOrdere d By: Arlette Steiner on 04-10-2024 [facility] Work Phone: Urinalysis with Reflex to Cu ltureon 04-10-2024 Bilirubin Ql (U) Negative NEGATIVE [facility] Clarity (U) Clear Clear [facility] Color (U) Yellow Yellow [facility] Glucose Test strip (U) [Mass/Vol] Negative NEGATIVE mg/dL [facility] Hemoglobin Auto test strip Ql (U) TRACE Abnormal NEGATIVE [facility] Interpretation and review of laboratory results Abnormal [facility] Ketones (U) [Mass/Vol] Negative NEGATIVE mg/dL [facility] Leukocyte esterase Test strip Ql (U) Negative NEGATIVE [facility] Nitrite Ql (U) Negative NEGATIVE [facility] pH (U) 6.0 [pH] 5.0 - 9.0 [facility] Protein (U) [Mass/Vol] Negative NEGATIVE mg/dL [facility] Specific gravity (U) [Rel density] 1.020 1.010 - 1.020 [facility] Urobilinogen Qn (U) Normal 0.0 - 1. 0 EU/dL [facility] Urinalysis,Microon 4 Epithelial cells LM Ql (Urine sed) 0 TO 2 Normal 0-25 [facility] Comment on above: Performed By: #### C P, LIP, CDP #### [facility] [address] [place] [address] Pattern Checker: Lakhwinder Tim MD Mucus Strands TRACE Abnormal NONE [facility] Comment on above: Performed By: #### C P, LIP, CDP #### [facility] [address] [place] [address] Pattern Checker: Lakhwinder Tim MD Urine RBC's 0 TO 2 Normal 0-2 [facility] Comment on above: Performed By: #### C P, LIP, CDP #### [facility] [address] [place] [address] Pattern Checker: Lakhwinder Tim MD Urine WBC's 0 TO 2 Normal 0-5 [facility] Comment on above: Performed By: #### C P, LIP, CDP #### [facility] [address] [place] [address] Pattern Checker: Lakhwinder Tim MD Basic Metabolic Panelon 10-2 Anion gap [Moles/Vol] 8 mmol/L Low 9 - 16 mmol/L [facility] Calcium [Mass/Vol] 9.0 mg/dL 8.6 - 10. 4 mg/dL [facility] Chloride [Moles/Vol] 105 mmol/L 98 - 10 7 mmol/L [facility] CO2 [Moles/Vol] 27 mmol/L 20 - 31 mmol/L [facility] Creatinine [Mass/Vol] 0.5 mg/dL 0.50 - 0.90 mg/dL [facility] Est, Glom Filt Rate - PINF [facility] Comment on above: These results are not intended for use in patients <18 years of age. eGFR results are calculated without a race factor using the 2020 CKD-EPI equation. Careful clinical correlation is recommended, particularly when comparing to results calculated using previous equations. The CKD-EPI equation is less accurate in patients with extremes of muscle mass, extra-renal metabolism of creatine, excessive creatine ingestion, or following therapy that affects renal tubular secretion. Glucose [Mass/Vol] 73 mg/dL Low 74 - 99 mg/dL [facility] Interpretation and review of laboratory results Abnormal [facility] Potassium [Moles/Vol] 4.1 mmol/L 3.7 - 5.3 mmol/L [facility] Sodium [Moles/Vol] 140 mmol/L 136 - 145 mmol/L [facility] Urea nitrogen [Mass/Vol] 8 mg/dL 6 - 20 mg/dL [facility] Urea nitrogen/Creatinine [Mass ratio] 16 mg/mg 9 - 20 [facility] Basic Metabolic Profon 04-09 Anion gap [Moles/Vol] 8 mmol/L Low 9-[address] [facility] Comment on above: Performed By: #### C P, LIP, CDP #### [facility] [address] [place], [place] [id number] Pattern Checker: Lakhwinder Tim MD BUN/CRE Ratio 16 Normal 9-20 [facility] Comment on above: Performed By: #### C P, LIP, CDP #### [facility] [address] [place], [place] [id number] Pattern Checker: Lakhwinder Tim MD Calcium [Mass/Vol] 9.0 mg/dL Normal 8.6-10.4 [facility] Comment on above: Performed By: #### C P, LIP, CDP #### [facility] [address] [place], [place] [id number] Pattern Checker: Lakhwinder Tim MD Chloride [Moles/Vol] 105 mmol/L Normal 98-107 [facility] Comment on above: Performed By: #### C P, LIP, CDP #### [facility] [address] [place], [place] [id number] Pattern Checker: Lakhwinder Tim MD CO2 [Moles/Vol] 27 mmol/L Normal 20-31 [facility] Comment on above: Performed By: #### C P, LIP, CDP #### [facility] [address] [place], [place] [id number] Pattern Checker: Lakhwinder Tim MD Creatinine [Mass/Vol] 0.5 mg/dL Normal 0.50-0.[address] [facility] Comment on above: Performed By: #### C P, LIP, CDP #### [facility] [address] [place], [place] [id number] Pattern Checker: Lakhwinder Tim MD GFR/1.73 sq M.predicted among non-blacks MDRD (S/P/Bld) [Vol rate/Area] mL/min/{1.73_m2} Normal >60 [facility] Comment on above: Result Comment: These results are not intended for use in patients <18 years of age. eGFR results are calculated without a race factor using the 2020 CKD-EPI equation. Careful clinical correlation is recommended, particularly when comparing to results calculated using previous equations. The CKD-EPI equation is less accurate in patients with extremes of muscle mass, extra-renal metabolism of creatine, excessive creatine ingestion, or following therapy that affects renal tubular secretion. Performed By: #### C P, LIP, CDP #### [facility] [address] [place] [address] [address] [place], [place] [id number] Pattern Checker: Lakhwinder Tim MD Glucose [Mass/Vol] 73 mg/dL Low 74-99 [facility] Comment on above: Performed By: #### C P LIP, CDP #### [address] [place], [place] [id number] Pattern Checker: Lakhwinder Tim MD Potassium [Moles/Vol] 4.1 mmol/L Normal 3.7-5.[address] [facility] Comment on above: Performed By: #### C PTOM, CDP #### [address] [place], [place] [id number] Pattern Checker: Lakhwinder Tim MD Sodium [Moles/Vol] 140 mmol/L Normal 136-145 [facility] Comment on above: Performed By: #### C P LIP, CDP #### [address] [place], [place] [id number] Pattern Checker: Lakhwinder Tim MD Urea nitrogen [Mass/Vol] 8 mg/dL Normal 6-20 [facility] Comment on above: Performed By: #### C P LIP, CDP #### [address] [place], [place] [id number] Pattern Checker: Lakhwinder Tim MD CBC with Auto Differentialon 04-09-2024 Basophils (Bld) [#/Vol] 0.03 10*3/uL [facility] Basophils/100 WBC (Bld) 1 % 0 - 2 % [facility] Eosinophils (Bld) [#/Vol] 0.07 10*3/uL [facility] Eosinophils/100 WBC (Bld) 1 % 1 - 4 % [facility] Erythrocyte distribution width (RBC) [Ratio] 13.5 % 11.8 - 14.4 % [facility] Hematocrit (Bld) [Volume fraction] 36.7 % 36.3 - 47.1 % [facility] Hemoglobin (Bld) [Mass/Vol] 11.7 g/dL Low 11.9 - 15.1 g/dL [facility] Immature granulocytes (Bld) [#/Vol] [facility] Immature granulocytes/100 WBC (Bld) 0 % 0 [facility] Interpretation and review of laboratory results Abnormal [facility] Lymphocytes/100 WBC (Bld) 38 % 24 - 43 % [facility] Lymphocytes/100 WBC (Bld) 2.24 % [facility] MCH (RBC) [Entitic mass] 28.1 pg 25.2 - 33.5 pg [facility] MCHC (RBC) [Mass/Vol] 31.9 g/dL 28.4 - 34.8 g/dL [facility] MCV (RBC) [Entitic vol] 88.2 fL 82.6 - 102.9 fL [facility] Monocytes/100 WBC (Bld) 7 % 3 - 12 % [facility] Monocytes/100 WBC (Bld) 0.40 % [facility] Neutrophils/100 WBC (Bld) 53 % 36 - 65 % [facility] Nucleated RBC/100 WBC (Bld) [Ratio] 0.0 % 0.0 per 100 WBC [facility] Platelet mean volume (Bld) [Entitic vol] 10.1 fL 8.1 - 13.5 fL [facility] Platelets (Bld) [#/Vol] 188 10*3/uL [facility] RBC (Bld) [#/Vol] 4.16 10*6/uL 3.95 - 5.1 1 m/uL [facility] Segmented neutrophils/100 WBC (Bld) 3.21 % [facility] WBC other (Bld) [#/Vol] 6.0 [facility] CBC with Diffon 04-09-2024 Abs. Basophil 0.03 k/uL Normal 0.00-0.20 [facility] Comment on above: Performed By: #### C P, LIP, CDP #### [facility] [address] [place] [address] Pattern Checker: Lakhwinder Tim MD Abs.Imm.Granulocyte <0.03 Normal 0.00-0.30 [facility] Comment on above: Performed By: #### C P, LIP, CDP #### [facility] [address] [address] Pattern Checker: Lakhwinder Tim MD Abs.Neutrophil (Seg) 3.21 k/uL Normal 1.50-8.10 [facility] Comment on above: Performed By: #### C P, LIP, CDP #### [facility] [address] [place] [address] Pattern Checker: Lakhwinder Tim MD Basophils/100 WBC (Bld) 1 % Normal 0-2 [facility] Comment on above: Performed By: #### C P, LIP, CDP #### [facility] [address] [place] [address] Pattern Checker: Lakhwinder Tmi MD Eosinophils (Bld) [#/Vol] 0.07 10*3/uL Normal 0.00-0.44 [facility] Comment on above: Performed By: #### C P, LIP, CDP #### [facility] [address] [place], [place] [id number] Pattern Checker: Lakhwinder Tim MD Eosinophils/100 WBC (Bld) 1 % Normal 1-4 [facility] Comment on above: Performed By: #### C P, LIP, CDP #### [facility] [address] [place], [place] [id number] Pattern Checker: Lakhwinder Tim MD Erythrocyte distribution width (RBC) [Ratio] 13.5 % Normal 11.8-14.4 [facility] Comment on above: Performed By: #### C P, LIP, CDP #### [address] [place], [facility]83 Pattern Checker: Lakhwinder iTm MD Hematocrit (Bld) [Volume fraction] 36.7 % Normal 36.3-47.1 [facility] Comment on above: Performed By: #### C P, LIP, CDP #### [address] [place], [facility]83 Pattern Checker: Lakhwinder Tim MD Hemoglobin (Bld) [Mass/Vol] 11.7 g/dL Low 11.9-15.1 [facility] Comment on above: Performed By: #### C P, LIP, CDP #### [address] [place], [facility]83 Pattern Checker: Lakhwinder Tim MD Immature granulocytes/100 WBC (Bld) 0 % Normal 0 [facility] Comment on above: Performed By: #### C P, LIP, CDP #### [address] [place], [facility]83 Pattern Checker: Lakhwinder Tim MD Lymphocytes (Bld) [#/Vol] 2.24 10*3/uL Normal 1.10-3.70 [facility] Comment on above: Performed By: #### C P, LIP, CDP #### [address] [place], [place] [id number] Pattern Checker: Lakhwinder Tim MD Lymphocytes/100 WBC (Bld) 38 % Normal 24-43 [facility] Comment on above: Performed By: #### C P, LIP, CDP #### [address] [place], [facility]83 Pattern Checker: Lakhwinder Tim MD MCH (RBC) [Entitic mass] 28.1 pg Normal 25.2-33.5 [facility] Comment on above: Performed By: #### C P, LIP, CDP #### [address] [place], [facility]83 Pattern Checker: Lakhwinder Tim MD MCHC (RBC) [Mass/Vol] 31.9 g/dL Normal 28.4-34.[address] [facility] Comment on above: Performed By: #### C P, LIP, CDP #### [address] [place] [address] Pattern Checker: Lakhwinder Tim MD MCV (RBC) [Entitic vol] 88.2 fL Normal 82.6-102.9 [facility] Comment on above: Performed By: #### C P, LIP, CDP #### [address] [place], [facility]83 Pattern Checker: Lakhwinder Tim MD Monocytes (Bld) [#/Vol] 0.40 10*3/uL Normal 0.10-1.20 [facility] Comment on above: Performed By: #### C P, LIP, CDP #### [address] [place], [facility]83 Pattern Checker: Lakhwinder Tim MD Monocytes/100 WBC (Bld) 7 % Normal 3-12 [facility] Comment on above: Performed By: #### C P, LIP, CDP #### [address] [place], [facility]83 Pattern Checker: Lakhwinder Tim MD Neutrophil (Seg) 53 % Normal 36-65 [facility] Comment on above: Performed By: #### C P, LIP, CDP #### [address] [place], [facility]83 Pattern Checker: Lakhwinder Tim MD NRBC Automated 0.0 per 100 WBC Normal 0.0 [facility] Comment on above: Performed By: #### C P, LIP, CDP #### [facility] [address] [place], [place] [id number] Pattern Checker: Lakhwinder Tim MD Platelet mean volume (Bld) [Entitic vol] 10.1 fL Normal 8.1-13.5 [facility] Comment on above: Performed By: #### C P, LIP, CDP #### [facility] [address] [place] [address] Pattern Checker: Lakhwinder Tim MD Platelets (Bld) [#/Vol] 188 10*3/uL Normal 138-453 [facility] Comment on above: Performed By: #### C P, LIP, CDP #### [facility] [address] [place] [address] [place]. [place], [place] [id number] Pattern Checker: Lakhwinder Tim MD RBC (Bld) [#/Vol] 4.16 10*6/uL Normal 3.95-5.11 [facility] Comment on above: Performed By: #### C P, LIP, CDP #### [facility] [address] [place], [place] [id number] Pattern Checker: Lakhwinder Tim MD WBC (Bld) [#/Vol] 6.0 10*3/uL Normal 3.5-11.3 [facility] Comment on above: Performed By: #### C P, LIP, CDP #### [facility] [address] [place], [place] [phone] Pattern Checker: Lakhwinder Tim MD Lactic Acidon 04-09-2024 Lactate (BldV) [Moles/Vol] 0.9 mmol/L 0.5 - 2.2 mmol/L [facility] Lactate [Moles/Vol] 0.9 mmol/L Normal 0.5-2.2 [facility] Comment on above: Performed By: #### C DP #### [facility] [address] [place] [address] Pattern Checker: Lakhwinder Tim MD Microscopic Urinalysison Bacteria LM Ql (Urine sed) 1+ Abnormal None [facility] Epithelial cells LM.HPF (Urine sed) [#/Area] 2 TO 5 [facility] Interpretation and review of laboratory results Abnormal [facility] Mucus Ql (Urine sed) 1+ Abnormal None [facility] RBC LM.HPF (Urine sed) [#/Area] 0 TO 2 [facility] WBC LM.HPF (Urine sed) [#/Area] 0 TO 2 [facility] UA w/Reflex Cultureon 2023 Bilirubin, SemiQt,Ur Negative Normal NEG [facility] Comment on above: Performed By: #### U MICAO, UAX #### [facility] [address] [place], [facility]83 Pattern Checker: Lakhwinder Tim MD Blood, Urine Negative Normal NEG [facility] Comment on above: Performed By: #### U MICAO, UAX #### [address] [place], [place] [phone] Pattern Checker: Lahkwinder Tim MD Clarity (U) Clear Normal CLEAR [facility] Comment on above: Performed By: #### U MICAO, UAX #### [facility] [address] [place], [place] 1024483 Pattern Checker: Lakhwinder Tim MD Color (U) Yellow Normal YEL [facility] Comment on above: Performed By: #### U MICAO, UAX #### [facility] [address] [place] [address] Pattern Checker: Lakhwinder Tim MD Glucose Ql (U) Negative Normal NEG [facility] Comment on above: Performed By: #### U MICAO, UAX #### [facility] [address] [place] [address] [place], [place] [phone] Pattern Checker: Lakhwinder Tim MD Ketones Ql (U) Negative Normal NEG [facility] Comment on above: Performed By: #### U MICAO, UAX #### [facility] [address] [place] [address] [place], [place] [phone] Pattern Checker: Lakhwinder Tim MD Leukocyte esterase Test strip Ql (U) Negative Normal NEG [facility] Comment on above: Performed By: #### U MICAO, UAX #### [address] [place], [place] [id number] Pattern Checker: Lakhwinder Tim MD Nitrite,Ur Negative Normal [facility] Comment on above: Performed By: #### U MICAO, UAX #### [facility] [address] [place] [address] Dr[place], [facility]83 Pattern Checker: Lakhwinder Tim MD PH,Ur 8.0 Normal 5.0-9.0 [facility] Comment on above: Performed By: #### U MICAO, UAX #### [address] [place], [place] [id number] Pattern Checker: Lakhwinder Tim MD Protein Ql (U) Negative Normal NEG [facility] Comment on above: Performed By: #### U MICAO, UAX #### [facility] [address] [place] [address] [place], [place] [id number] Pattern Checker: Lakhwinder Tim MD Spec. Fackler,Ur 1.020 Normal 1.010-1.020 [facility] Comment on above: Performed By: #### U MICAO, UAX #### [facility] [address] [place] [address] [place]. [place], [place] [phone] Pattern Checker: Lakhwinder Tim MD Urobilinogen,Ur Normal Normal 0.0-1.0 [facility] Comment on above: Performed By: #### U MICAO, UAX #### [facility] [address] [place] [address] Pattern Checker: Lakhwinder Tim MD US NON OB TRANSVAGINAL W DOP PLERon 04-09-2024 US NON OB TRANSVAGINAL W DOPPLER EXAMINATION: TRANSVAGINAL PELVIC ULTRASOUND WITH DOPPLER 04/09/2024 TECHNIQUE: Transvaginal pelvic duplex ultrasound using B-mode/mitchell scaled imaging and Doppler spectral analysis and color flow was obtained. COMPARISON: 04/02/2024 CT abdomen/pelvis. Multiple pelvic ultrasounds dating back to 02/05/2024 HISTORY: ORDERING SYSTEM PROVIDED HISTORY: R ovarian cyst and worsening pain TECHNOLOGIST PROVIDED HISTORY: R ovarian cyst and worsening pain FINDINGS: Measurements: Uterus: Surgically absent. Right Ovary:4.1 x 3.3 x 3.3 cm. Left Ovary: 2.0 x 1.9 x 1.6 cm. Ultrasound Findings: Uterus: The uterus is surgically absent. Right Ovary: The previously described complex right ovarian cystic lesion now appears to represent 2 adjacent simple cysts versus less likely a cystic lesion with a thickened internal septation. A separate mildly heterogeneous area measures 2.7 x 1.6 x 2.8 cm. Arterial and venous waveforms are present. There is normal arterial and venous Doppler flow. Left Ovary: Left ovary is within normal limits. There is normal arterial and venous Doppler flow. Free Fluid: No evidence of free fluid. IMPRESSION: 1. No sonographic evidence of ovarian torsion. 2. The previously described complex right ovarian cystic lesion now appears to represent two adjacent simple cysts versus less likely a cystic lesion with a thickened internal septation. A separate 2.7 cm mildly heterogeneous area could represent hemorrhagic cyst. Consider 6-8 week pelvic ultrasound to assess change. 3. Prior hysterectomy. Interpreted by: Lexus Villegas MD Signed by: Lexus Villegas MD 04/09/24 Final result Normal [facility] US Pelvis transvaginalon 1. No sonographic evidence of ovarian torsion. 2. The previously described complex right ovarian cystic lesion now appears to represent two adjacent simple cysts versus less likely a cystic lesion with a thickened internal septation. A separate 2.7 cm mildly heterogeneous area could represent hemorrhagic cyst. Consider 6-8 week pelvic ultrasound to assess change. 3. Prior hysterectomy. [facility] EXAMINATION: TRANSVAGINAL PELVIC ULTRASOUND WITH DOPPLER 04/09/2024 TECHNIQUE: Transvaginal pelvic duplex ultrasound using B-mode/mitchell scaled imaging and Doppler spectral analysis and color flow was obtained. COMPARISON: 04/02/2024 CT abdomen/pelvis. Multiple pelvic ultrasounds dating back to 02/05/2024 HISTORY: ORDERING SYSTEM PROVIDED HISTORY: R ovarian cyst and worsening pain TECHNOLOGIST PROVIDED HISTORY: R ovarian cyst and worsening pain FINDINGS: Measurements: Uterus: Surgically absent. Right Ovary:4.1 x 3.3 x 3.3 cm. Left Ovary: 2.0 x 1.9 x 1.6 cm. Ultrasound Findings: Uterus: The uterus is surgically absent. Right Ovary: The previously described complex right ovarian cystic lesion now appears to represent 2 adjacent simple cysts versus less likely a cystic lesion with a thickened internal septation. A separate mildly heterogeneous area measures 2.7 x 1.6 x 2.8 cm. Arterial and venous waveforms are present. There is normal arterial and venous Doppler flow. Left Ovary: Left ovary is within normal limits. There is normal arterial and venous Doppler flow. Free Fluid: No evidence of free fluid. [facility] Lexus Villegas MD - 04/09/2024 EXAMINATION: TRANSVAGINAL PELVIC ULTRASOUND WITH DOPPLER 04/09/2024 TECHNIQUE: Transvaginal pelvic duplex ultrasound using B-mode/mitchell scaled imaging and Doppler spectral analysis and color flow was obtained. COMPARISON: 04/02/2024 CT abdomen/pelvis. Multiple pelvic ultrasounds dating back to 02/05/2024 HISTORY: ORDERING SYSTEM PROVIDED HISTORY: R ovarian cyst and worsening pain TECHNOLOGIST PROVIDED HISTORY: R ovarian cyst and worsening pain FINDINGS: Measurements: Uterus: Surgically absent. Right Ovary:4.1 x 3.3 x 3.3 cm. Left Ovary: 2.0 x 1.9 x 1.6 cm. Ultrasound Findings: Uterus: The uterus is surgically absent. Right Ovary: The previously described complex right ovarian cystic lesion now appears to represent 2 adjacent simple cysts versus less likely a cystic lesion with a thickened internal septation. A separate mildly heterogeneous area measures 2.7 x 1.6 x 2.8 cm. Arterial and venous waveforms are present. There is normal arterial and venous Doppler flow. Left Ovary: Left ovary is within normal limits. There is normal arterial and venous Doppler flow. Free Fluid: No evidence of free fluid. IMPRESSION: 1. No sonographic evidence of ovarian torsion. 2. The previously described complex right ovarian cystic lesion now appears to represent two adjacent simple cysts versus less likely a cystic lesion with a thickened internal septation. A separate 2.7 cm mildly heterogeneous area could represent hemorrhagic cyst. Consider 6-8 week pelvic ultrasound to assess change. 3. Prior hysterectomy. [facility] Radiology Study observation (narrative) [facility] US Pelvis transvaginalOrdere d By: Lexus Villegas on 04-09-2024 [facility] Work Phone: Urinalysis with Reflex to Cu ltureon 04-09-2024 Bilirubin Ql (U) Negative NEGATIVE [facility] Clarity (U) Clear Clear [facility] Color (U) Yellow Yellow [facility] Glucose Test strip (U) [Mass/Vol] Negative NEGATIVE mg/dL [facility] Hemoglobin Auto test strip Ql (U) Negative NEGATIVE [facility] Ketones (U) [Mass/Vol] Negative NEGATIVE mg/dL [facility] Leukocyte esterase Test strip Ql (U) Negative NEGATIVE [facility] Nitrite Ql (U) Negative NEGATIVE [facility] pH (U) 8.0 [pH] 5.0 - 9.0 [facility] Protein (U) [Mass/Vol] Negative NEGATIVE mg/dL [facility] Specific gravity (U) [Rel density] 1.020 1.010 - 1.020 [facility] Urobilinogen Qn (U) Normal 0.0 - 1. 0 EU/dL [facility] Urinalysis,Microon 4 Bacteria 1+ Abnormal NONE [facility] Comment on above: Performed By: #### U JERALD COLLINS #### [facility] [address] [place] [address] Pattern Checker: Lakhwinder Tim MD Epithelial cells LM Ql (Urine sed) 2 TO 5 Normal 0-25 [facility] Comment on above: Performed By: #### U MICAO, UAX #### [facility] [address] [place] [address] Pattern Checker: Lakhwinder Tim MD Mucus Strands 1+ Abnormal NONE [facility] Comment on above: Performed By: #### U MICAO, UAX #### [facility] [address] [place], [place] [id number] Pattern Checker: Lakhwinder Tim MD Urine RBC's 0 TO 2 Normal 0-2 [facility] Comment on above: Performed By: #### U MICAO, UAX #### [facility] [address] [place] [address] Pattern Checker: Lakhwinder Tim MD Urine WBC's 0 TO 2 Normal 0-5 [facility] Comment on above: Performed By: #### U MICAO, UAX #### [facility] [address] [place] [address] Pattern Checker: Lakhwinder Tim MD CBC with Auto Differentialon 04-02-2024 Basophils (Bld) [#/Vol] 0.04 10*3/uL [facility] Basophils/100 WBC (Bld) 1 % 0 - 2 % [facility] Eosinophils (Bld) [#/Vol] 0.07 10*3/uL [facility] Eosinophils/100 WBC (Bld) 2 % 1 - 4 % [facility] Erythrocyte distribution width (RBC) [Ratio] 13.7 % 11.8 - 14.4 % [facility] Hematocrit (Bld) [Volume fraction] 40.3 % 36.3 - 47.1 % [facility] Hemoglobin (Bld) [Mass/Vol] 12.9 g/dL 11.9 - 15.1 g/dL [facility] Immature granulocytes (Bld) [#/Vol] [facility] Immature granulocytes/100 WBC (Bld) 0 % 0 [facility] Lymphocytes/100 WBC (Bld) 38 % 24 - 43 % [facility] Lymphocytes/100 WBC (Bld) 1.81 % [facility] MCH (RBC) [Entitic mass] 27.9 pg 25.2 - 33.5 pg [facility] MCHC (RBC) [Mass/Vol] 32.0 g/dL 28.4 - 34.8 g/dL [facility] MCV (RBC) [Entitic vol] 87.0 fL 82.6 - 102.9 fL [facility] Monocytes/100 WBC (Bld) 6 % 3 - 12 % [facility] Monocytes/100 WBC (Bld) 0.27 % [facility] Neutrophils/100 WBC (Bld) 53 % 36 - 65 % [facility] Nucleated RBC/100 WBC (Bld) [Ratio] 0.0 % 0.0 per 100 WBC [facility] Platelet mean volume (Bld) [Entitic vol] 9.9 fL 8.1 - 13.5 fL [facility] Platelets (Bld) [#/Vol] 259 10*3/uL [facility] RBC (Bld) [#/Vol] 4.63 10*6/uL 3.95 - 5.1 1 m/uL [facility] Segmented neutrophils/100 WBC (Bld) 2.58 % [facility] WBC other (Bld) [#/Vol] 4.8 [facility] CBC with Diffon 04-02-2024 Abs. Basophil 0.04 k/uL Normal 0.00-0.20 [facility] Comment on above: Performed By: #### C DP #### [facility] [address] [place] [address] Pattern Checker: Lakhwinder Tim MD Abs.Imm.Granulocyte <0.03 Normal 0.00-0.30 [facility] Comment on above: Performed By: #### C DP #### [facility] [address] [place] [address] Pattern Checker: Lakhwinder Tim MD Abs.Neutrophil (Seg) 2.58 k/uL Normal 1.50-8.10 [facility] Comment on above: Performed By: #### C DP #### [facility] [address] [place], [facility]83 Pattern Checker: Lakhwinder Tim MD Basophils/100 WBC (Bld) 1 % Normal 0-2 [facility] Comment on above: Performed By: #### C DP #### [facility] [address] [address] [place], [facility]83 Pattern Checker: Lakhwinder Tim MD Eosinophils (Bld) [#/Vol] 0.07 10*3/uL Normal 0.00-0.44 [facility] Comment on above: Performed By: #### C DP #### [address] [place], [facility]83 Pattern Checker: Lakhwinder Tim MD Eosinophils/100 WBC (Bld) 2 % Normal 1-4 [facility] Comment on above: Performed By: #### C DP #### [address] [place], [facility]83 Pattern Checker: Lakhwinder Tim MD Erythrocyte distribution width (RBC) [Ratio] 13.7 % Normal 11.8-14.4 [facility] Comment on above: Performed By: #### C DP #### [address] [place], [facility]83 Pattern Checker: Lakhwinder Tim MD Hematocrit (Bld) [Volume fraction] 40.3 % Normal 36.3-47.1 [facility] Comment on above: Performed By: #### C DP #### [address] [place], [facility]83 Pattern Checker: Lakhwinder Tim MD Hemoglobin (Bld) [Mass/Vol] 12.9 g/dL Normal 11.9-15.1 [facility] Comment on above: Performed By: #### C DP #### [address] [place], [facility]83 Pattern Checker: Lakhwinder Tim MD Immature granulocytes/100 WBC (Bld) 0 % Normal 0 [facility] Comment on above: Performed By: #### C DP #### [facility] [address] [place] [address] Pattern Checker: Lakhwinder Tim MD Lymphocytes (Bld) [#/Vol] 1.81 10*3/uL Normal 1.10-3.70 [facility] Comment on above: Performed By: #### C DP #### [facility] [address] [place] [address] Pattern Checker: Lakhwinder Tim MD Lymphocytes/100 WBC (Bld) 38 % Normal 24-43 [facility] Comment on above: Performed By: #### C DP #### [facility] [address] [place] [address] Pattern Checker: Lakhwinder Tim MD MCH (RBC) [Entitic mass] 27.9 pg Normal 25.2-33.5 [facility] Comment on above: Performed By: #### C DP #### [facility] [address] [place] [address] [place] [address] Pattern Checker: Lakhwinder Tim MD MCHC (RBC) [Mass/Vol] 32.0 g/dL Normal 28.4-34.[address] [facility] Comment on above: Performed By: #### C DP #### [facility] [address] [place], [place] [id number] Pattern Checker: Lakhwinder Tim MD MCV (RBC) [Entitic vol] 87.0 fL Normal 82.6-102.9 [facility] Comment on above: Performed By: #### C DP #### [facility] [address] [place] [address] Pattern Checker: Lakhwinder Tim MD Monocytes (Bld) [#/Vol] 0.27 10*3/uL Normal 0.10-1.20 [facility] Comment on above: Performed By: #### C DP #### [facility] [address] [place], [facility]83 Pattern Checker: Lakhwinder Tim MD Monocytes/100 WBC (Bld) 6 % Normal 3-12 [facility] Comment on above: Performed By: #### C DP #### [facility] [address] [place], [facility]83 Pattern Checker: Lakhwinder Tim MD Neutrophil (Seg) 53 % Normal 36-65 [facility] Comment on above: Performed By: #### C DP #### [facility] [address] [place], [facility]83 Pattern Checker: Lakhwinder Tim MD NRBC Automated 0.0 per 100 WBC Normal 0.0 [facility] Comment on above: Performed By: #### C DP #### [facility] [address] [place], [facility]83 Pattern Checker: Lakhwinder Tim MD Platelet mean volume (Bld) [Entitic vol] 9.9 fL Normal 8.1-13.5 [facility] Comment on above: Performed By: #### C DP #### [address] [place], [facility]83 Pattern Checker: Lakhwinder Tim MD Platelets (Bld) [#/Vol] 259 10*3/uL Normal 138-453 [facility] Comment on above: Performed By: #### C DP #### [facility] [address] [place], [facility]83 Pattern Checker: Lakhwinder Tim MD RBC (Bld) [#/Vol] 4.63 10*6/uL Normal 3.95-5.11 [facility] Comment on above: Performed By: #### C DP #### [facility] [address] [place] [facility]83 Pattern Checker: Lakhwinder Tim MD WBC (Bld) [#/Vol] 4.8 10*3/uL Normal 3.5-11.3 [facility] Comment on above: Performed By: #### C DP #### [facility] [address] [place] [address] Pattern Checker: Lakhwinder Tim MD CT ABDOMEN PELVIS W IV CONTR Marichuy 04-02-2024 CT ABDOMEN PELVIS W IV CONTRAST EXAMINATION: CT OF THE ABDOMEN AND PELVIS WITH CONTRAST, 04/02/2024 12:25 pm TECHNIQUE: CT of the abdomen and pelvis was performed with the administration of intravenous contrast. Multiplanar reformatted images are provided for review. Automated exposure control, iterative reconstruction, and/or weight based adjustment of the mA/kV was utilized to reduce the radiation dose to as low as reasonably achievable. COMPARISON: None HISTORY: ORDERING SYSTEM PROVIDED HISTORY: [facility] abdominal pain TECHNOLOGIST PROVIDED HISTORY: [facility] abdominal pain Decision Support Exception - unselect if not a suspected or confirmed emergency medical condition->Emergency Medical Condition (MA) FINDINGS: Lower Chest: Lung bases appear unremarkable. Organs: Liver, gallbladder, pancreas and spleen, adrenals, kidneys, aorta and IVC appear normal. GI/Bowel: Appendix well visualized and appears normal. Mild constipation. No colitis or enteritis. Pelvis: Status post hysterectomy. Urinary bladder appears stable. No evidence of lymphadenopathy. Peritoneum/Retroperitoneu m: No retroperitoneal lymphadenopathy. Mild fat containing periumbilical hernia. Bones/Soft Tissues: Lumbar spine and sacrum appear unremarkable. No acute soft tissue abnormality. IMPRESSION: 1. No acute intra-abdominal or pelvic process. 2. Mild constipation. Appendix well visualized and appears normal. 3. Mild fat containing periumbilical hernia. 4. Status post hysterectomy. Interpreted by: Opal Henry MD Signed by: Opal Henry MD 04/02/24 Final result Normal [facility] Comp Metabolic Profon 2023 Albumin [Mass/Vol] 4.7 g/dL Normal 3.5-5.2 [facility] Comment on above: Performed By: #### U MICAO, UAX #### [facility] [address] [place] [address] Pattern Checker: Lakhwinder Tim MD Albumin/Glob Ratio 1.6 Normal 1.0-2.5 [facility] Comment on above: Performed By: #### U MICAO, UAX #### [facility] [address] [place] [address] Pattern Checker: Lakhwinder Tim MD Alkaline Phos 60 U/L Normal 35-104 [facility] Comment on above: Performed By: #### U MICAO, UAX #### [facility] [address] [place] [address] Pattern Checker: Lakhwinder Tim MD ALT [Catalytic activity/Vol] 9 U/L Low 10-35 [facility] Comment on above: Performed By: #### U MICAO, UAX #### [facility] [address] [place] [address] [place] [address] Pattern Checker: Lakhwinder Tim MD Anion gap [Moles/Vol] 9 mmol/L Normal 9-[address] [facility] Comment on above: Performed By: #### U MICAO, UAX #### [facility] [address] [place] [address] Dr. [place], [place] [id number] Pattern Checker: Lakhwinder Tim MD AST [Catalytic activity/Vol] 16 U/L Normal 10-35 [facility] Comment on above: Performed By: #### U MICAO, UAX #### [facility] [address] [place] [address] [place] [address] Pattern Checker: Lakhwinder Tim MD Bilirubin [Mass/Vol] 0.3 mg/dL Normal 0.00-1.20 [facility] Comment on above: Performed By: #### U MICAO, UAX #### [facility] [address] [place] [address] [place] [address] Pattern Checker: Lakhwinder Tim MD BUN/CRE Ratio 12 Normal 9-20 [facility] Comment on above: Performed By: #### U MICAO, UAX #### [facility] [address] [place] [address] Pattern Checker: Lakhwinder Tim MD Calcium [Mass/Vol] 9.4 mg/dL Normal 8.6-10.4 [facility] Comment on above: Performed By: #### U MICAO, UAX #### [facility] [address] [place] [id number] Pattern Checker: Lakhwinder Tim MD Chloride [Moles/Vol] 104 mmol/L Normal 98-107 [facility] Comment on above: Performed By: #### U OSMINO, UAX #### [facility] [address] [place] [address] Pattern Checker: Lakhwinder Tim MD CO2 [Moles/Vol] 26 mmol/L Normal 20-31 [facility] Comment on above: Performed By: #### U OSMINO, UAX #### [facility] [address] [place], [place] [id number] Pattern Checker: Lakhwinder Tim MD Creatinine [Mass/Vol] 0.5 mg/dL Normal 0.50-0.[address] [facility] Comment on above: Performed By: #### U MICAO, UAX #### [facility] [address] [place] [address] Pattern Checker: Lakhwinder Tim MD GFR/1.73 sq M.predicted among non-blacks MDRD (S/P/Bld) [Vol rate/Area] mL/min/{1.73_m2} Normal >60 [facility] Comment on above: Result Comment: These results are not intended for use in patients <18 years of age. eGFR results are calculated without a race factor using the 2020 CKD-EPI equation. Careful clinical correlation is recommended, particularly when comparing to results calculated using previous equations. The CKD-EPI equation is less accurate in patients with extremes of muscle mass, extra-renal metabolism of creatine, excessive creatine ingestion, or following therapy that affects renal tubular secretion. Performed By: #### U MICAO, UAX #### [facility] [address] [place], [place] [id number] Pattern Checker: Lakhwinder Tim MD Glucose [Mass/Vol] 88 mg/dL Normal 74-99 [facility] Comment on above: Performed By: #### U MICAO, UAX #### [facility] [address] [place], [place] [id number] Pattern Checker: Lakhwinder Tim MD Potassium [Moles/Vol] 3.7 mmol/L Normal 3.7-5.[address] [facility] Comment on above: Performed By: #### U MICAO, UAX #### [facility] [address] [place], [place] [id number] Pattern Checker: Lakhwinder Tim MD Protein [Mass/Vol] 7.8 g/dL Normal 6.6-8.7 [facility] Comment on above: Performed By: #### U MICAO, UAX #### [facility] [address] [place], [place] [id number] Pattern Checker: Lakhwinder Tim MD Sodium [Moles/Vol] 139 mmol/L Normal 136-145 [facility] Comment on above: Performed By: #### U MICAO, UAX #### [facility] [address] [place], [place] [id number] Pattern Checker: Lakhwinder Tim MD Urea nitrogen [Mass/Vol] 6 mg/dL Normal 6-20 [facility] Comment on above: Performed By: #### U MICAO, UAX #### [facility] [address] [place] [address] Pattern Checker: Lakhwinder Tim MD Comprehensive Metabolic Pane [facility] 04-02-2024 Albumin [Mass/Vol] 4.7 g/dL 3.5 - 5.2 g/dL [facility] Albumin/Globulin [Mass ratio] 1.6 {ratio} 1.0 - 2.5 [facility] ALP [Catalytic activity/Vol] 60 U/L 35 - 104 U/L [facility] ALT [Catalytic activity/Vol] 9 U/L Low 10 - 35 U/L [facility] Anion gap [Moles/Vol] 9 mmol/L 9 - 16 mmol/L [facility] AST [Catalytic activity/Vol] 16 U/L 10 - 35 U/L [facility] Bilirubin [Mass/Vol] 0.3 mg/dL 0.00 - 1.20 mg/dL [facility] Calcium [Mass/Vol] 9.4 mg/dL 8.6 - 10. 4 mg/dL [facility] Chloride [Moles/Vol] 104 mmol/L 98 - 10 7 mmol/L [facility] CO2 [Moles/Vol] 26 mmol/L 20 - 31 mmol/L [facility] Creatinine [Mass/Vol] 0.5 mg/dL 0.50 - 0.90 mg/dL [facility] Est, Love [place] Rate - PINF [facility] Comment on above: These results are not intended for use in patients <18 years of age. eGFR results are calculated without a race factor using the 2020 CKD-EPI equation. Careful clinical correlation is recommended, particularly when comparing to results calculated using previous equations. The CKD-EPI equation is less accurate in patients with extremes of muscle mass, extra-renal metabolism of creatine, excessive creatine ingestion, or following therapy that affects renal tubular secretion. Glucose [Mass/Vol] 88 mg/dL 74 - 99 mg/dL [facility] Interpretation and review of laboratory results Abnormal [facility] Potassium [Moles/Vol] 3.7 mmol/L 3.7 - 5.3 mmol/L [facility] Protein [Mass/Vol] 7.8 g/dL 6.6 - 8.7 g/dL [facility] Sodium [Moles/Vol] 139 mmol/L 136 - 145 mmol/L [facility] Urea nitrogen [Mass/Vol] 6 mg/dL 6 - 20 mg/dL [facility] Urea nitrogen/Creatinine [Mass ratio] 12 mg/mg 9 - 20 [facility] Lactic Acidon 04-02-2024 Lactate [Moles/Vol] 1.4 mmol/L Normal 0.5-2.2 [facility] Comment on above: Performed By: #### U MICAO, UAX #### [facility] [address] [place], [place] [id number] Pattern Checker: Lakhwinder Tim MD Lactate (BldV) [Moles/Vol] 1.4 mmol/L 0.5 - 2.2 mmol/L [facility] Microscopic Urinalysison Epithelial cells LM.HPF (Urine sed) [#/Area] 0 TO 2 [facility] RBC LM.HPF (Urine sed) [#/Area] 0 TO 2 [facility] WBC LM.HPF (Urine sed) [#/Area] 0 TO 2 [facility] UA w/Reflex Cultureon 2023 Bilirubin, SemiQt,Ur Negative Normal NEG [facility] Comment on above: Performed By: #### U MICAO, UAX #### [facility] [address] [place], [place] [id number] Pattern Checker: Lakhwinder Tim MD Blood, Urine Negative Normal NEG [facility] Comment on above: Performed By: #### U MICAO, UAX #### [facility] [address] [place] [address] Pattern Checker: Lakhwinder Tim MD Clarity (U) Clear Normal CLEAR [facility] Comment on above: Performed By: #### U MICAO, UAX #### [facility] [address] [place] [address] Pattern Checker: Lakhwinder Tim MD Color (U) Yellow Normal YEL [facility] Comment on above: Performed By: #### U MICAO, UAX #### [facility] [address] [place] [address] Pattern Checker: Lakhwinder iTm MD Glucose Ql (U) Negative Normal NEG [facility] Comment on above: Performed By: #### U MICAO, UAX #### [facility] [address] [place] [address] Dr. [place], [place] [id number] Pattern Checker: Lakhwinder Tim MD Ketones Ql (U) Negative Normal NEG [facility] Comment on above: Performed By: #### U MICAO, UAX #### [facility] [address] [place] [address] Dr. [place], [place] [id number] Pattern Checker: Lakhwinder Tim MD Leukocyte esterase Test strip Ql (U) Negative Normal NEG [facility] Comment on above: Performed By: #### U MICAO, UAX #### [address] [place], [place] [id number] Pattern Checker: Lakhwinder Tim MD Nitrite,Ur Negative Normal NEG [facility] Comment on above: Performed By: #### U MICAO, UAX #### [facility] [address] [place] [address] Dr. [place], [place] [id number] Pattern Checker: Lakhwinder Tim MD PH,Ur 8.0 Normal 5.0-9.0 [facility] Comment on above: Performed By: #### U MICAO, UAX #### [address] [place], [place] [id number] Pattern Checker: Lakhwinder Tim MD Protein Ql (U) Negative Normal NEG [facility] Comment on above: Performed By: #### U MICAO, UAX #### [facility] [address] [place] [address] [address] [place], [place] [id number] Pattern Checker: Lakhwinder Tim MD Spec. Fackler,Ur 1.020 Normal 1.010-1.020 [facility] Comment on above: Performed By: #### U MICAO, UAX #### [facility] [address] [place] [address] Dr[address] [place], [place] [id number] Pattern Checker: Lakhwinder Tim MD Urobilinogen,Ur Normal Normal 0.0-1.0 [facility] Comment on above: Performed By: #### U MICAO, UAX #### [facility] [address] [place] [address] Pattern Checker: Lakhwinder Tim MD US NON OB TRANSVAGINAL W DOP PLERon 04-02-2024 US NON OB TRANSVAGINAL W DOPPLER EXAMINATION: TRANSVAGINAL PELVIC ULTRASOUND WITH DOPPLER 04/02/2024 TECHNIQUE: Transvaginal pelvic duplex ultrasound using B-mode/mitchell scaled imaging and Doppler spectral analysis and color flow was obtained. COMPARISON: Pelvic ultrasound 03/17/2024 HISTORY: ORDERING SYSTEM PROVIDED HISTORY: known ovarian cyst R ovary, worsening pain. r/o torsion TECHNOLOGIST PROVIDED HISTORY: known ovarian cyst R ovary, worsening pain. r/o torsion Complex cystic mass within the right ovary on previous ultrasound. Prior hysterectomy. FINDINGS: Measurements: Uterus: Surgically absent Endometrial stripe: Surgically absent Right Ovary:4.0 x 3.7 x 2.8 cm Left Ovary: 2.2 x 1.6 x 1.6 cm Ultrasound Findings: Uterus: The uterus is surgically absent. Endometrial stripe: The endometrial stripe is surgically absent. Right Ovary: The right ovary is mildly enlarged. There is normal arterial and venous Doppler flow. There is a persistent approximate 3.5 x 2.8 x 1.8 cm complex cystic lesion within the right adnexa, demonstrating some lace-like low level internal echoes, similar in comparison with the prior exam of 03/17/2024, and most likely a hemorrhagic cyst. Left Ovary: Left ovary is within normal limits. There is normal arterial and venous Doppler flow. Free Fluid: No evidence of free fluid. IMPRESSION: 1. Patient status post hysterectomy. 2. Unremarkable sonographic appearance of the left ovary, without evidence of torsion or mass. 3. No evidence of right ovarian torsion or solid mass. Persistent 3.5 cm complex cystic lesion with the right adnexa, most likely a benign ovarian hemorrhagic cyst, requiring no further follow-up given size of the lesion and patient's premenopausal status. Interpreted by: Yasir Bertrand MD Signed by: Yasir Bertrand MD 04/02/24 Final result Normal [facility] US Pelvis transvaginalon 1. Patient status po st hysterectomy. 2. Unremarkable sonographic appearance of the left ovary, without evidence of torsion or mass. 3. No evidence of right ovarian torsion or solid mass. Persistent 3.5 cm complex cystic lesion with the right adnexa, most likely a benign ovarian hemorrhagic cyst, requiring no further follow-up given size of the lesion and patient's premenopausal status. [facility] EXAMINATION: TRANSVAGINAL PELVIC ULTRASOUND WITH DOPPLER 04/02/2024 TECHNIQUE: Transvaginal pelvic duplex ultrasound using B-mode/mitchell scaled imaging and Doppler spectral analysis and color flow was obtained. COMPARISON: Pelvic ultrasound 03/17/2024 HISTORY: ORDERING SYSTEM PROVIDED HISTORY: known ovarian cyst R ovary, worsening pain. r/o torsion TECHNOLOGIST PROVIDED HISTORY: known ovarian cyst R ovary, worsening pain. r/o torsion Complex cystic mass within the right ovary on previous ultrasound. Prior hysterectomy. FINDINGS: Measurements: Uterus: Surgically absent Endometrial stripe: Surgically absent Right Ovary:4.0 x 3.7 x 2.8 cm Left Ovary: 2.2 x 1.6 x 1.6 cm Ultrasound Findings: Uterus: The uterus is surgically absent. Endometrial stripe: The endometrial stripe is surgically absent. Right Ovary: The right ovary is mildly enlarged. There is normal arterial and venous Doppler flow. There is a persistent approximate 3.5 x 2.8 x 1.8 cm complex cystic lesion within the right adnexa, demonstrating some lace-like low level internal echoes, similar in comparison with the prior exam of 03/17/2024, and most likely a hemorrhagic cyst. Left Ovary: Left ovary is within normal limits. There is normal arterial and venous Doppler flow. Free Fluid: No evidence of free fluid. [facility] Yasir Bertrand MD - 04/02/2024 EXAMINATION: TRANSVAGINAL PELVIC ULTRASOUND WITH DOPPLER 04/02/2024 TECHNIQUE: Transvaginal pelvic duplex ultrasound using B-mode/mitchell scaled imaging and Doppler spectral analysis and color flow was obtained. COMPARISON: Pelvic ultrasound 03/17/2024 HISTORY: ORDERING SYSTEM PROVIDED HISTORY: known ovarian cyst R ovary, worsening pain. r/o torsion TECHNOLOGIST PROVIDED HISTORY: known ovarian cyst R ovary, worsening pain. r/o torsion Complex cystic mass within the right ovary on previous ultrasound. Prior hysterectomy. FINDINGS: Measurements: Uterus: Surgically absent Endometrial stripe: Surgically absent Right Ovary:4.0 x 3.7 x 2.8 cm Left Ovary: 2.2 x 1.6 x 1.6 cm Ultrasound Findings: Uterus: The uterus is surgically absent. Endometrial stripe: The endometrial stripe is surgically absent. Right Ovary: The right ovary is mildly enlarged. There is normal arterial and venous Doppler flow. There is a persistent approximate 3.5 x 2.8 x 1.8 cm complex cystic lesion within the right adnexa, demonstrating some lace-like low level internal echoes, similar in comparison with the prior exam of 03/17/2024, and most likely a hemorrhagic cyst. Left Ovary: Left ovary is within normal limits. There is normal arterial and venous Doppler flow. Free Fluid: No evidence of free fluid. IMPRESSION: 1. Patient status post hysterectomy. 2. Unremarkable sonographic appearance of the left ovary, without evidence of torsion or mass. 3. No evidence of right ovarian torsion or solid mass. Persistent 3.5 cm complex cystic lesion with the right adnexa, most likely a benign ovarian hemorrhagic cyst, requiring no further follow-up given size of the lesion and patient's premenopausal status. [facility] Radiology Study observation (narrative) [facility] US Pelvis transvaginalOrdere d By: Yasir Bertrand on 04-02-2024 [facility] Work Phone: Urinalysis with Reflex to Cu ltureon 04-02-2024 Bilirubin Ql (U) Negative NEGATIVE [facility] Clarity (U) Clear Clear [facility] Color (U) Yellow Yellow [facility] Glucose Test strip (U) [Mass/Vol] Negative NEGATIVE mg/dL [facility] Hemoglobin Auto test strip Ql (U) Negative NEGATIVE [facility] Ketones (U) [Mass/Vol] Negative NEGATIVE mg/dL [facility] Leukocyte esterase Test strip Ql (U) Negative NEGATIVE [facility] Nitrite Ql (U) Negative NEGATIVE [facility] pH (U) 8.0 [pH] 5.0 - 9.0 [facility] Protein (U) [Mass/Vol] Negative NEGATIVE mg/dL [facility] Specific gravity (U) [Rel density] 1.020 1.010 - 1.020 [facility] Urobilinogen Qn (U) Normal 0.0 - 1. 0 EU/dL [facility] Urinalysis,Microon 4 Epithelial cells LM Ql (Urine sed) 0 TO 2 Normal 0-25 [facility] Comment on above: Performed By: #### U KARINA UAX #### [facility] [address] [place] [address] Pattern Checker: Lakhwinder Tim MD Urine RBC's 0 TO 2 Normal 0-2 [facility] Comment on above: Performed By: #### U KARINA UAX #### [facility] [address] [place] [address] Pattern Checker: Lakhwinder Tim MD Urine WBC's 0 TO 2 Normal 0-5 [facility] Comment on above: Performed By: #### U KARINA, UAX #### [facility] [address] [place] [address] Pattern Checker: Lakhwinder Tim MD CBC with Diffon 03-17-2024 Basophils (Bld) [#/Vol] [facility] Basophils/100 WBC (Bld) 0 % 0 - 2 % [facility] Eosinophils (Bld) [#/Vol] 0.08 10*3/uL [facility] Eosinophils/100 WBC (Bld) 2 % 1 - 4 % [facility] Erythrocyte distribution width (RBC) [Ratio] 13.6 % 11.8 - 14.4 % [facility] Hematocrit (Bld) [Volume fraction] 35.9 % Low 36.3 - 47.1 % [facility] Hemoglobin (Bld) [Mass/Vol] 12.0 g/dL 11.9 - 15.1 g/dL [facility] Immature granulocytes (Bld) [#/Vol] [facility] Immature granulocytes/100 WBC (Bld) 0 % 0 [facility] Interpretation and review of laboratory results Abnormal [facility] Lymphocytes/100 WBC (Bld) 37 % 24 - 43 % [facility] Lymphocytes/100 WBC (Bld) 1.59 % [facility] MCH (RBC) [Entitic mass] 28.5 pg 25.2 - 33.5 pg [facility] MCHC (RBC) [Mass/Vol] 33.4 g/dL 28.4 - 34.8 g/dL [facility] MCV (RBC) [Entitic vol] 85.3 fL 82.6 - 102.9 fL [facility] Monocytes/100 WBC (Bld) 8 % 3 - 12 % [facility] Monocytes/100 WBC (Bld) 0.32 % [facility] Neutrophils/100 WBC (Bld) 53 % 36 - 65 % [facility] Nucleated RBC/100 WBC (Bld) [Ratio] 0.0 % 0.0 per 100 WBC [facility] Platelet mean volume (Bld) [Entitic vol] 10.6 fL 8.1 - 13.5 fL [facility] Platelets (Bld) [#/Vol] 202 10*3/uL [facility] RBC (Bld) [#/Vol] 4.21 10*6/uL 3.95 - 5.1 1 m/uL [facility] Segmented neutrophils/100 WBC (Bld) 2.26 % [facility] WBC other (Bld) [#/Vol] 4.3 [facility] Abs. Basophil <0.03 Normal 0.00-0.20 [facility] Comment on above: Performed By: #### C P, LIP, CDP #### [facility] [address] [place] [address] Pattern Checker: Lakhwinder Tim MD Abs.Imm.Granulocyte <0.03 Normal 0.00-0.30 [facility] Comment on above: Performed By: #### C P, LIP, CDP #### [facility] [address] [place] [address] Pattern Checker: Lakhwinder Tim MD Abs.Neutrophil (Seg) 2.26 k/uL Normal 1.50-8.10 [facility] Comment on above: Performed By: #### C P, LIP, CDP #### [address] [place] [address] Pattern Checker: Lakhwinder Tim MD Basophils/100 WBC (Bld) 0 % Normal 0-2 [facility] Comment on above: Performed By: #### C P, LIP, CDP #### [address] [place], [facility]83 Pattern Checker: Lakhwinder Tim MD Eosinophils (Bld) [#/Vol] 0.08 10*3/uL Normal 0.00-0.44 [facility] Comment on above: Performed By: #### C P, LIP, CDP #### [address] [place], [facility]83 Pattern Checker: Lakhwinder Tim MD Eosinophils/100 WBC (Bld) 2 % Normal 1-4 [facility] Comment on above: Performed By: #### C P, LIP, CDP #### [address] [place], [facility]83 Pattern Checker: Lakhwinder Tim MD Erythrocyte distribution width (RBC) [Ratio] 13.6 % Normal 11.8-14.4 [facility] Comment on above: Performed By: #### C P, LIP, CDP #### [address] [place], [facility]83 Pattern Checker: Lakhwinder Tim MD Hematocrit (Bld) [Volume fraction] 35.9 % Low 36.3-47.1 [facility] Comment on above: Performed By: #### C P, LIP, CDP #### [address] [place] [address] Pattern Checker: Lakhwinder Tim MD Hemoglobin (Bld) [Mass/Vol] 12.0 g/dL Normal 11.9-15.1 [facility] Comment on above: Performed By: #### C P, LIP, CDP #### [address] [place], [place] [id number] Pattern Checker: Lakhwinder Tim MD Immature granulocytes/100 WBC (Bld) 0 % Normal 0 [facility] Comment on above: Performed By: #### C P, LIP, CDP #### [address] [place], [facility]83 Pattern Checker: Lakhwinder Tim MD Lymphocytes (Bld) [#/Vol] 1.59 10*3/uL Normal 1.10-3.70 [facility] Comment on above: Performed By: #### C P, LIP, CDP #### [address] [place], [facility]83 Pattern Checker: Lakhwinder Tim MD Lymphocytes/100 WBC (Bld) 37 % Normal 24-43 [facility] Comment on above: Performed By: #### C P, LIP, CDP #### [address] [place], [facility]83 Pattern Checker: Lakhwinder Tim MD MCH (RBC) [Entitic mass] 28.5 pg Normal 25.2-33.5 [facility] Comment on above: Performed By: #### C P, LIP, CDP #### [address] [place], [facility]83 Pattern Checker: Lakhwinder Tim MD MCHC (RBC) [Mass/Vol] 33.4 g/dL Normal 28.4-34.[address] [facility] Comment on above: Performed By: #### C P, LIP, CDP #### [address] [place] [address] Pattern Checker: Lakhwinder Tim MD MCV (RBC) [Entitic vol] 85.3 fL Normal 82.6-102.9 [facility] Comment on above: Performed By: #### C P, LIP, CDP #### [facility] [address] [place], [place] [address] Pattern Checker: Lakhwinder Tim MD Monocytes (Bld) [#/Vol] 0.32 10*3/uL Normal 0.10-1.20 [facility] Comment on above: Performed By: #### C P, LIP, CDP #### [facility] [address] [place], [facility]83 Pattern Checker: Lakhwinder Tim MD Monocytes/100 WBC (Bld) 8 % Normal 3-12 [facility] Comment on above: Performed By: #### C P, LIP, CDP #### [address] [place], [place] [address] Pattern Checker: Lakhwinder Tim MD Neutrophil (Seg) 53 % Normal 36-65 [facility] Comment on above: Performed By: #### C P, LIP, CDP #### [address] [place], [place] [id number] Pattern Checker: Lakhwinder Tim MD NRBC Automated 0.0 per 100 WBC Normal 0.0 [facility] Comment on above: Performed By: #### C P, LIP, CDP #### [address] [place], [place] [address] Pattern Checker: Lakhwinder Tim MD Platelet mean volume (Bld) [Entitic vol] 10.6 fL Normal 8.1-13.5 [facility] Comment on above: Performed By: #### C P, LIP, CDP #### [address] [place] [address] Pattern Checker: Lakhwinder Tim MD Platelets (Bld) [#/Vol] 202 10*3/uL Normal 138-453 [facility] Comment on above: Performed By: #### C P, LIP, CDP #### [facility] [address] [place] [address] Pattern Checker: Lakhwinder Tim MD RBC (Bld) [#/Vol] 4.21 10*6/uL Normal 3.95-5.11 [facility] Comment on above: Performed By: #### C PTOM, CDP #### [facility] [address] [place], [place] [id number] Pattern Checker: Lakhwinder Tim MD WBC (Bld) [#/Vol] 4.3 10*3/uL Normal 3.5-11.3 [facility] Comment on above: Performed By: #### C TOM Mckeon CDP #### [facility] [address] [place] [address] Pattern Checker: Lakhwinder Tim MD [facility] 03-17-2024 Albumin [Mass/Vol] 4.4 g/dL 3.5 - 5.2 g/dL [facility] Albumin/Globulin [Mass ratio] 1.4 {ratio} 1.0 - 2.5 [facility] ALP [Catalytic activity/Vol] 66 U/L 35 - 104 U/L [facility] ALT [Catalytic activity/Vol] 9 U/L Low 10 - 35 U/L [facility] Anion gap [Moles/Vol] 9 mmol/L 9 - 16 mmol/L [facility] AST [Catalytic activity/Vol] 18 U/L 10 - 35 U/L [facility] Bilirubin [Mass/Vol] mg/dL 0.00 - 1.20 mg/dL [facility] Calcium [Mass/Vol] 9.2 mg/dL 8.6 - 10. 4 mg/dL [facility] Chloride [Moles/Vol] 104 mmol/L 98 - 10 7 mmol/L [facility] CO2 [Moles/Vol] 24 mmol/L 20 - 31 mmol/L [facility] Creatinine [Mass/Vol] 0.6 mg/dL 0.50 - 0.90 mg/dL [facility] Est, Glom Filt Rate - [facility] Comment on above: These results are not intended for use in patients <18 years of age. eGFR results are calculated without a race factor using the 2020 CKD-EPI equation. Careful clinical correlation is recommended, particularly when comparing to results calculated using previous equations. The CKD-EPI equation is less accurate in patients with extremes of muscle mass, extra-renal metabolism of creatine, excessive creatine ingestion, or following therapy that affects renal tubular secretion. Glucose [Mass/Vol] 86 mg/dL 74 - 99 mg/dL [facility] Interpretation and review of laboratory results Abnormal [facility] Potassium [Moles/Vol] 3.8 mmol/L 3.7 - 5.3 mmol/L [facility] Protein [Mass/Vol] 7.6 g/dL 6.6 - 8.7 g/dL [facility] Sodium [Moles/Vol] 137 mmol/L 136 - 145 mmol/L [facility] Urea nitrogen [Mass/Vol] 9 mg/dL 6 - 20 mg/dL [facility] Urea nitrogen/Creatinine [Mass ratio] 15 mg/mg 9 - 20 [facility] CT ABDOMEN PELVIS W IV CONTR Marichuy 03-17-2024 CT ABDOMEN PELVIS W IV CONTRAST EXAMINATION: CT OF THE ABDOMEN AND PELVIS WITH CONTRAST 03/17/2024 10:53 am TECHNIQUE: CT of the abdomen and pelvis was performed with the administration of intravenous contrast. Multiplanar reformatted images are provided for review. Automated exposure control, iterative reconstruction, and/or weight based adjustment of the mA/kV was utilized to reduce the radiation dose to as low as reasonably achievable. COMPARISON: 02/07/2024 HISTORY: ORDERING SYSTEM PROVIDED HISTORY: [facility] pain TECHNOLOGIST PROVIDED HISTORY: [facility] pain Decision Support Exception - unselect if not a suspected or confirmed emergency medical condition->Emergency Medical Condition (MA) FINDINGS: Lower Chest: The visualized heart and lungs show no acute abnormalities. Organs: The liver, spleen, pancreas, kidneys and adrenal glands show no significant abnormality. Gallbladder shows no significant abnormality. GI/Bowel: There is limited evaluation due to absence of oral contrast. No bowel obstruction. No acute infective process. Pelvis: Hysterectomy noted. 4.8 cm right adnexal cyst previously 2.4 cm. Along its left side there is a smaller 1.4 cm cyst which was previously 2.3 cm. Nonspecific fat stranding versus trace fluid along posterior aspect of the largest cyst. Unchanged. Peritoneum/Retroperitoneu m: No free fluid or significant lymphadenopathy. Ureters show no calculus. Bones/Soft Tissues: No acute abnormality of the bones. The superficial soft tissues show no acute process. IMPRESSION: 1. No direct evidence for acute infective or inflammatory process. 2. A 4.8 cm right adnexal cyst was previously 2.4 cm. Size and features would support benign functional cyst. Pelvic ultrasound may be considered in light of change in size, patient sentence and fat stranding. Interpreted by: Wily Kumar MD Signed by: Wily Kumar MD 03/17/24 Final result Normal [facility] CT Abdomen and Pelvis W cont rast Alexsander 03-17-2024 1. No direct evidenc e for acute infective or inflammatory process. 2. A 4.8 cm right adnexal cyst was previously 2.4 cm. Size and features would support benign functional cyst. Pelvic ultrasound may be considered in light of change in size, patient sentence and fat stranding. [facility] RIS CONSOLIDATED EXAMINATION: CT OF THE ABDOMEN AND PELVIS WITH CONTRAST 03/17/2024 10:53 am TECHNIQUE: CT of the abdomen and pelvis was performed with the administration of intravenous contrast. Multiplanar reformatted images are provided for review. Automated exposure control, iterative reconstruction, and/or weight based adjustment of the mA/kV was utilized to reduce the radiation dose to as low as reasonably achievable. COMPARISON: 02/07/2024 HISTORY: ORDERING SYSTEM PROVIDED HISTORY: [facility] pain TECHNOLOGIST PROVIDED HISTORY: [facility] pain Decision Support Exception - unselect if not a suspected or confirmed emergency medical condition->Emergency Medical Condition (MA) FINDINGS: Lower Chest: The visualized heart and lungs show no acute abnormalities. Organs: The liver, spleen, pancreas, kidneys and adrenal glands show no significant abnormality. Gallbladder shows no significant abnormality. GI/Bowel: There is limited evaluation due to absence of oral contrast. No bowel obstruction. No acute infective process. Pelvis: Hysterectomy noted. 4.8 cm right adnexal cyst previously 2.4 cm. Along its left side there is a smaller 1.4 cm cyst which was previously 2.3 cm. Nonspecific fat stranding versus trace fluid along posterior aspect of the largest cyst. Unchanged. Peritoneum/Retroperitoneu m: No free fluid or significant lymphadenopathy. Ureters show no calculus. Bones/Soft Tissues: No acute abnormality of the bones. The superficial soft tissues show no acute process. [facility] Wily Choudhary MD - 03/17/2024 EXAMINATION: CT OF THE ABDOMEN AND PELVIS WITH CONTRAST 03/17/2024 10:53 am TECHNIQUE: CT of the abdomen and pelvis was performed with the administration of intravenous contrast. Multiplanar reformatted images are provided for review. Automated exposure control, iterative reconstruction, and/or weight based adjustment of the mA/kV was utilized to reduce the radiation dose to as low as reasonably achievable. COMPARISON: 02/07/2024 HISTORY: ORDERING SYSTEM PROVIDED HISTORY: [facility] pain TECHNOLOGIST PROVIDED HISTORY: [facility] pain Decision Support Exception - unselect if not a suspected or confirmed emergency medical condition->Emergency Medical Condition (MA) FINDINGS: Lower Chest: The visualized heart and lungs show no acute abnormalities. Organs: The liver, spleen, pancreas, kidneys and adrenal glands show no significant abnormality. Gallbladder shows no significant abnormality. GI/Bowel: There is limited evaluation due to absence of oral contrast. No bowel obstruction. No acute infective process. Pelvis: Hysterectomy noted. 4.8 cm right adnexal cyst previously 2.4 cm. Along its left side there is a smaller 1.4 cm cyst which was previously 2.3 cm. Nonspecific fat stranding versus trace fluid along posterior aspect of the largest cyst. Unchanged. Peritoneum/Retroperitoneu m: No free fluid or significant lymphadenopathy. Ureters show no calculus. Bones/Soft Tissues: No acute abnormality of the bones. The superficial soft tissues show no acute process. IMPRESSION: 1. No direct evidence for acute infective or inflammatory process. 2. A 4.8 cm right adnexal cyst was previously 2.4 cm. Size and features would support benign functional cyst. Pelvic ultrasound may be considered in light of change in size, patient sentence and fat stranding. [facility] Radiology Study observation (narrative) [facility] CT Abdomen and Pelvis W cont rast IVOrdered By: Wily Kumar on 03-17-2024 [facility] Work Phone: Comp Metabolic Profon 09-29- 2024 Albumin [Mass/Vol] 4.4 g/dL Normal 3.5-5.2 [facility] Comment on above: Performed By: #### C P, LIP, CDP #### [facility] [address] [place] [address] Pattern Checker: Lakhwinder Tim MD Albumin/Glob Ratio 1.4 Normal 1.0-2.5 [facility] Comment on above: Performed By: #### C P, LIP, CDP #### [facility] [address] [place], [place] [id number] Pattern Checker: Lakhwinder Tim MD Alkaline Phos 66 U/L Normal 35-104 [facility] Comment on above: Performed By: #### C P, LIP, CDP #### [facility] [address] [place], [place] [id number] Pattern Checker: Lakhwinder Tim MD ALT [Catalytic activity/Vol] 9 U/L Low 10-35 [facility] Comment on above: Performed By: #### C P, LIP, CDP #### [facility] [address] [place], [place] [id number] Pattern Checker: Lakhwinder Tim MD Anion gap [Moles/Vol] 9 mmol/L Normal 9-[address] [facility] Comment on above: Performed By: #### C P, LIP, CDP #### [facility] [address] [place], [place] [id number] Pattern Checker: Lakhwinder Tim MD AST [Catalytic activity/Vol] 18 U/L Normal 10-35 [facility] Comment on above: Performed By: #### C P, LIP, CDP #### [facility] [address] [place] [address] Pattern Checker: Lakhwinder Tim MD Bilirubin [Mass/Vol] mg/dL Normal 0.00-1.20 [facility] Comment on above: Performed By: #### C P, LIP, CDP #### [facility] [address] [place], [place] [id number] Pattern Checker: Lakhwinder Tim MD BUN/CRE Ratio 15 Normal 9-20 [facility] Comment on above: Performed By: #### C P, LIP, CDP #### [facility] [address] [place], [place] [id number] Pattern Checker: Lakhwinder Tim MD Calcium [Mass/Vol] 9.2 mg/dL Normal 8.6-10.4 [facility] Comment on above: Performed By: #### C P, LIP, CDP #### [facility] [address] [place], [place] [id number] Pattern Checker: Lakhwinder Tim MD Chloride [Moles/Vol] 104 mmol/L Normal 98-107 [facility] Comment on above: Performed By: #### C P, LIP, CDP #### [facility] [address] [place], [place] [id number] Pattern Checker: Lakhwinder Tim MD CO2 [Moles/Vol] 24 mmol/L Normal 20-31 [facility] Comment on above: Performed By: #### C P, LIP, CDP #### [facility] [address] [place], [place] [id number] Pattern Checker: Lakhwinder Tim MD Creatinine [Mass/Vol] 0.6 mg/dL Normal 0.50-0.[address] [facility] Comment on above: Performed By: #### C P, LIP, CDP #### [facility] [address] [place] [address] Pattern Checker: Lakhwinder Tim MD GFR/1.73 sq M.predicted among non-blacks MDRD (S/P/Bld) [Vol rate/Area] mL/min/{1.73_m2} Normal >60 [facility] Comment on above: Result Comment: These results are not intended for use in patients <18 years of age. eGFR results are calculated without a race factor using the 2020 CKD-EPI equation. Careful clinical correlation is recommended, particularly when comparing to results calculated using previous equations. The CKD-EPI equation is less accurate in patients with extremes of muscle mass, extra-renal metabolism of creatine, excessive creatine ingestion, or following therapy that affects renal tubular secretion. Performed By: #### C P, LIP, CDP #### [facility] [address] [place], [place] [id number] Pattern Checker: Lakhwinder Tim MD Glucose [Mass/Vol] 86 mg/dL Normal 74-99 [facility] Comment on above: Performed By: #### C P, LIP, CDP #### [facility] [address] [place] [address] Pattern Checker: Lakhwinder Tim MD Potassium [Moles/Vol] 3.8 mmol/L Normal 3.7-5.[address] [facility] Comment on above: Performed By: #### C P, LIP, CDP #### [address] [place] [address] Pattern Checker: Lakhwinder Tim MD Protein [Mass/Vol] 7.6 g/dL Normal 6.6-8.7 [facility] Comment on above: Performed By: #### C P, LIP, CDP #### [address] [place] [address] Pattern Checker: Lakhwinder Tim MD Sodium [Moles/Vol] 137 mmol/L Normal 136-145 [facility] Comment on above: Performed By: #### C P, LIP, CDP #### [facility] [address] [place] [address] Dr[address] [place], [place] [id number] Pattern Checker: Lakhwinder Tim MD Urea nitrogen [Mass/Vol] 9 mg/dL Normal 6-20 [facility] Comment on above: Performed By: #### C P, LIP, CDP #### [facility] [address] [place], [place] 1475483 Pattern Checker: Lakhwinder Tim MD Lactic Acidon 03-17-2024 Lactate (BldV) [Moles/Vol] 0.9 mmol/L 0.5 - 2.2 mmol/L [facility] Lactate [Moles/Vol] 0.9 mmol/L Normal 0.5-2.2 [facility] Comment on above: Performed By: #### C P LIP, CDP #### [facility] [address] [place] [address] Pattern Checker: Lakhwinder Tim MD Lipaseon 03-17-2024 Lipase [Catalytic activity/Vol] 17 U/L 13 - 60 U/L [facility] Lipase [Catalytic activity/Vol] 17 U/L Normal -60 [facility] Comment on above: Performed By: #### C P LIP, CDP #### [facility] [address] [place] [address] Pattern Checker: Lakhwinder Tim MD Microscopic Urinalysison Epithelial cells LM.HPF (Urine sed) [#/Area] 0 TO 2 [facility] RBC LM.HPF (Urine sed) [#/Area] 0 TO 2 [facility] WBC LM.HPF (Urine sed) [#/Area] None [facility] No Panel Informationon 03-17 [facility] UA w/Reflex Cultureon 2023 Bilirubin, SemiQt,Ur Negative Normal NEG [facility] Comment on above: Performed By: #### C DP #### [facility] [address] [place] [address] Pattern Checker: Lakhwinder Tim MD Blood, Urine TRACE Abnormal NEG [facility] Comment on above: Performed By: #### C DP #### [facility] [address] [place] [address] Pattern Checker: Lakhwinder Tim MD Clarity (U) Clear Normal CLEAR [facility] Comment on above: Performed By: #### C DP #### [facility] [address] [place], [place] [id number] Pattern Checker: Lakhwinder Tim MD Color (U) Yellow Normal YEL [facility] Comment on above: Performed By: #### C DP #### [facility] [address] [place], [place] [id number] Pattern Checker: Lakhwinder Tim MD Glucose Ql (U) Negative Normal NEG [facility] Comment on above: Performed By: #### C DP #### [facility] [address] [place], [place] [id number] Pattern Checker: Lakhwinder Tim MD Ketones Ql (U) Negative Normal NEG [facility] Comment on above: Performed By: #### C DP #### [facility] [address] [place], [facility]83 Pattern Checker: Lakhwinder Tim MD Leukocyte esterase Test strip Ql (U) Negative Normal NEG [facility] Comment on above: Performed By: #### C DP #### [facility] [address] [place] [address] Dr[place], [facility]83 Pattern Checker: Lakhwinder Tim MD Nitrite,Ur Negative Normal NEG [facility] Comment on above: Performed By: #### C DP #### [facility] [address] [place], [facility]83 Pattern Checker: Lakhwinder Tim MD PH,Ur 6.5 Normal 5.0-9.0 [facility] Comment on above: Performed By: #### C DP #### [facility] [address] [place], [place] [id number] Pattern Checker: Lakhwinder Tim MD Protein Ql (U) Negative Normal NEG [facility] Comment on above: Performed By: #### C DP #### [facility] [address] [place], [place] [id number] Pattern Checker: Lakhwinder Tim MD Spec. Fackler,Ur 1.015 Normal 1.010-1.020 [facility] Comment on above: Performed By: #### C DP #### [facility] [address] [place] [address] Pattern Checker: Lakhwinder Tim MD Urobilinogen,Ur Normal Normal 0.0-1.0 [facility] Comment on above: Performed By: #### C DP #### [facility] [address] [place], [place] [id number] Pattern Checker: Lakhwinder Tim MD US NON OB TRANSVAGINAL W DOP PLERon 03-17-2024 US NON OB TRANSVAGINAL W DOPPLER EXAMINATION: TRANSVAGINAL PELVIC ULTRASOUND WITH DOPPLER 03/17/2024 TECHNIQUE: Transvaginal pelvic duplex ultrasound using B-mode/mitchell scaled imaging and Doppler spectral analysis and color flow was obtained. COMPARISON: Pelvic ultrasound 02/05/2024, CT abdomen and pelvis 03/17/2024 HISTORY: ORDERING SYSTEM PROVIDED HISTORY: r/o torsion TECHNOLOGIST PROVIDED HISTORY: r/o torsion FINDINGS: Measurements: Uterus: Surgically absent Right Ovary:4.5 x 4.8 x 3.7 cm Left Ovary: 2.4 x 3.0 x 2.0 cm Ultrasound Findings: Uterus: Status post hysterectomy Right Ovary: The right ovary is enlarged secondary to a 3.6 x 3.5 x 3.0 cm complex cystic mass with low level internal echoes. There is normal arterial and venous Doppler flow within the right ovary. No discrete ovarian parenchyma is appreciated. Left Ovary: Left ovary is within normal limits. There is normal arterial and venous Doppler flow. Free Fluid: No evidence of free fluid. IMPRESSION: 1. 3.6 cm complex cystic mass within the right ovary. Findings are nonspecific and may represent hemorrhagic cyst, though tubo-ovarian abscess is not excluded. Recommend correlation with clinical parameters. 2. Normal Doppler flow within the ovaries. 3. Status post hysterectomy. Interpreted by: Carlos Tatum MD Signed by: Carlos Tatum MD 03/17/24 Final result Normal [facility] Urinalysis with Reflex to Cu ltureon 03-17-2024 Bilirubin Ql (U) Negative NEGATIVE [facility] Glucose Test strip (U) [Mass/Vol] Negative NEGATIVE mg/dL [facility] Hemoglobin Auto test strip Ql (U) TRACE Abnormal NEGATIVE [facility] Interpretation and review of laboratory results Abnormal [facility] Ketones (U) [Mass/Vol] Negative NEGATIVE mg/dL [facility] Nitrite Ql (U) Negative NEGATIVE [facility] pH (U) 6.5 [pH] 5.0 - 9.0 [facility] Protein (U) [Mass/Vol] Negative NEGATIVE mg/dL [facility] Specific gravity (U) [Rel density] 1.015 1.010 - 1.020 [facility] Urobilinogen Qn (U) Normal 0.0 - 1. 0 EU/dL [facility] Urinalysis,Microon 4 Epithelial cells LM Ql (Urine sed) 0 TO 2 Normal 0-25 [facility] Comment on above: Performed By: #### C DP #### [facility] [address] [place] [address] Pattern Checker: Lakhwinder Tim MD Urine RBC's 0 TO 2 Normal 0-2 [facility] Comment on above: Performed By: #### C DP #### [facility] [address] [place] [address] Pattern Checker: Lakhwinder Tim MD Urine WBC's None Normal 0-5 [facility] Comment on above: Performed By: #### C DP #### [facility] [address] [place] [address] Pattern Checker: Lakhwinder Tim MD [id number] 03-10-2024 SARS-CoV-2 (COVID-19) RNA MARICEL+probe Ql (Unsp spec) Detected Abnormal NOTDET [facility] Comment on above: Result Comment: Rapid NAAT: The specimen is POSITIVE for SARS-Cov-2, the novel coronavirus associated with COVID-19. This test has been authorized by the FDA under an Emergency Use Authorization (EUA) for use by authorized laboratories. The ID NOW COVID-19 assay is designed to detect the virus that causes COVID-19 in patients with signs and symptoms of infection who are suspected of COVID-19. An individual without symptoms of COVID-19 and who is not shedding SARS-CoV-2 virus would expect to have a negative (not detected) result in this assay. Fact sheet for Healthcare Providers: https://www.fda.gov/media/055417/download Fact sheet for Patients: https://www.fda.gov/media/236559/download Methodology: Isothermal Nucleic Acid Amplification Results reported to the appropriate Health Department Performed By: #### U KARINA, UAX #### [facility] [address] [place] [address] Pattern Checker: Lakhwinder Tim MD BLOOD CULTUREon 02-07-2024 Bacteria identified Aer cx Nom (Bld) SPECIMEN NOTES SUBOPTIMAL VOLUME OF BLOOD COLLECTED, RESULTS MAY BE AFFECTED. CULTURE RESULTS NO GROWTH 5 DAYS Normal [facility] Comment on above: Performed By: #### C BCA, 26643-7, PINR, 90862-6, CMP #### [facility] ([id number]) [address], [address] [place] [address] Bacteria identified Aer cx Nom (Bld) CULTURE RESULTS NO GROWTH 5 DAYS Normal [facility] CBC AND AUTO DIFFon 02-07-20 24 ABSOLUTE BASOPHIL 0.0 X10E9/L Normal 0.0-0.2 [facility] Comment on above: Performed By: #### 2 823-3 #### [facility] ([id number]) [address], [address] [place] [address] ABSOLUTE NEUTROPHIL 3.0 X10E9/L Normal 1.5-6.6 [facility] Comment on above: Performed By: #### 2 823-3 #### [facility] ([id number]) [address], [address] [place] [address] Basophils/100 WBC (Bld) 0.4 % Normal [facility] Comment on above: Performed By: #### 2 823-3 #### [facility] ([id number]) [address], [address] [place] [address] Eosinophils (Bld) [#/Vol] 0.1 10*3/uL Normal 0.0-0.4 [facility] Comment on above: Performed By: #### 2 823-3 #### [facility] ([id number]) [address], [address] [place] [address] Eosinophils/100 WBC (Bld) 1.4 % Normal [facility] Comment on above: Performed By: #### 2 823-3 #### [facility] ([id number]) [address], [facility] [address] [place] [address] Erythrocyte distribution width (RBC) [Ratio] 16.3 % High 11.5-15.0 [facility] Comment on above: Performed By: #### 2 823-3 #### [facility] ([id number]) [address], [address] [place] [address] Hematocrit (Bld) [Volume fraction] 32.5 % Low 35-47 [facility] Comment on above: Performed By: #### 2 823-3 #### [facility] ([id number]) [address], [address] [place] [address] Hemoglobin (Bld) [Mass/Vol] 10.8 g/dL Low 11.7-15.5 [facility] Comment on above: Performed By: #### 2 823-3 #### [facility] ([id number]) [address] [address] [place] [address] Lymphocytes (Bld) [#/Vol] 2.2 10*3/uL Normal 1.0-3.5 [facility] Comment on above: Performed By: #### 2 823-3 #### [facility] ([id number]) [address], [address] [place] [address] Lymphocytes/100 WBC (Bld) 39.2 % Normal [facility] Comment on above: Performed By: #### 2 823-3 #### [facility] ([id number]) [address], [address] [place] [address] MCH (RBC) [Entitic mass] 28.2 pg Normal 27-34 [facility] Comment on above: Performed By: #### 2 823-3 #### [facility] ([id number]) [address], [address] [place] [address] MCHC (RBC) [Mass/Vol] 33.4 g/dL Normal 32-36 [facility] Comment on above: Performed By: #### 2 823-3 #### [facility] ([id number]) [address], [address] [place] [address] MCV (RBC) [Entitic vol] 85 fL Normal 80-100 [facility] Comment on above: Performed By: #### 2 823-3 #### [facility] ([id number]) [address], [address] [place] [address] Monocytes (Bld) [#/Vol] 0.4 10*3/uL Normal 0-0.9 [facility] Comment on above: Performed By: #### 2 823-3 #### [facility] ([id number]) [address], [address] [place] [address] Monocytes/100 WBC (Bld) 7.0 % Normal [facility] Comment on above: Performed By: #### 2 823-3 #### [facility] ([id number]) [address], [address] [place] [address] Neutrophils/100 WBC (Bld) 52.0 % Normal [facility] Comment on above: Performed By: #### 2 823-3 #### [facility] ([id number]) [address], [facility] [address] [place] [address] Platelet mean volume (Bld) [Entitic vol] 8.0 fL Normal 7-12 [facility] Comment on above: Performed By: #### 2 823-3 #### [facility] ([id number]) [address], [address] [address] Platelets (Bld) [#/Vol] 224 10*3/uL Normal 150-450 [facility] Comment on above: Performed By: #### 2 823-3 #### [facility] ([id number]) [address], [address] [address] RBC COUNT 3.84 X10E12/L Normal 3.80-5.20 [facility] Comment on above: Performed By: #### 2 823-3 #### [facility] ([id number]) [address], [address] [address] WBC (Bld) [#/Vol] 5.7 10*3/uL Normal 4.0-11.0 [facility] Comment on above: Performed By: #### 2 823-3 #### [facility] ([id number]) [address], [address] [address] CBC with Auto Differentialon 02-07-2024 Basophils (Bld) [#/Vol] [facility] Basophils/100 WBC (Bld) 1 % 0 - 2 % [facility] Eosinophils (Bld) [#/Vol] 0.12 10*3/uL [facility] Eosinophils/100 WBC (Bld) 3 % 1 - 4 % [email or web address] Erythrocyte distribution width (RBC) [Ratio] 15.0 % High 11.8 - 14.4 % [facility] Hematocrit (Bld) [Volume fraction] 35.2 % Low 36.3 - 47.1 % [facility] Hemoglobin (Bld) [Mass/Vol] 11.4 g/dL Low 11.9 - 15.1 g/dL [facility] Immature granulocytes (Bld) [#/Vol] [facility] Immature granulocytes/100 WBC (Bld) 0 % 0 [facility] Interpretation and review of laboratory results Abnormal [facility] Lymphocytes/100 WBC (Bld) 38 % 24 - 43 % [facility] Lymphocytes/100 WBC (Bld) 1.69 % [facility] MCH (RBC) [Entitic mass] 28.2 pg 25.2 - 33.5 pg [facility] MCHC (RBC) [Mass/Vol] 32.4 g/dL 28.4 - 34.8 g/dL [facility] MCV (RBC) [Entitic vol] 87.1 fL 82.6 - 102.9 fL [facility] Monocytes/100 WBC (Bld) 8 % 3 - 12 % [facility] Monocytes/100 WBC (Bld) 0.36 % [facility] Neutrophils/100 WBC (Bld) 50 % 36 - 65 % [facility] Nucleated RBC/100 WBC (Bld) [Ratio] 0.0 % 0.0 per 100 WBC [facility] Platelet mean volume (Bld) [Entitic vol] 10.3 fL 8.1 - 13.5 fL [facility] Platelets (Bld) [#/Vol] 228 10*3/uL [facility] RBC (Bld) [#/Vol] 4.04 10*6/uL 3.95 - 5.1 1 m/uL [facility] Segmented neutrophils/100 WBC (Bld) 2.23 % [facility] WBC other (Bld) [#/Vol] 4.4 [facility] CBC with Diffon 02-07-2024 Abs. Basophil <0.03 Normal 0.00-0.20 [facility] Comment on above: Performed By: #### C P, LIP, CDP #### [facility] [address] [place] [address] Pattern Checker: Lakhwinder Tim MD Abs.Imm.Granulocyte <0.03 Normal 0.00-0.30 [facility] Comment on above: Performed By: #### C P, LIP, CDP #### [address] [place], [place] [address] Pattern Checker: Lakhwinder Tim MD Abs.Neutrophil (Seg) 2.23 k/uL Normal 1.50-8.10 [facility] Comment on above: Performed By: #### C P, LIP, CDP #### [address] [place], [place] [address] Pattern Checker: Lakhwinder Tim MD Basophils/100 WBC (Bld) 1 % Normal 0-2 [facility] Comment on above: Performed By: #### C P, LIP, CDP #### [address] [place], [facility]83 Pattern Checker: Lakhwinder Tim MD Eosinophils (Bld) [#/Vol] 0.12 10*3/uL Normal 0.00-0.44 [facility] Comment on above: Performed By: #### C P, LIP, CDP #### [address] [place], [facility]83 Pattern Checker: Lakhwinder Tim MD Eosinophils/100 WBC (Bld) 3 % Normal 1-4 [facility] Comment on above: Performed By: #### C P, LIP, CDP #### [address] [place], [facility]83 Pattern Checker: Lakhwinder Tim MD Erythrocyte distribution width (RBC) [Ratio] 15.0 % High 11.8-14.4 [facility] Comment on above: Performed By: #### C P, LIP, CDP #### [address] [place], [place] [address] Pattern Checker: Lakhwinder Tim MD Hematocrit (Bld) [Volume fraction] 35.2 % Low 36.3-47.1 [facility] Comment on above: Performed By: #### C P, LIP, CDP #### [facility] [address] [place] [address] [address] [place], [place] [address] Pattern Checker: Lakhwinder Tim MD Hemoglobin (Bld) [Mass/Vol] 11.4 g/dL Low 11.9-15.1 [facility] Comment on above: Performed By: #### C P, LIP, CDP #### [facility] [address] [place] [address] [place], [place] [id number] Pattern Checker: Lakhwinder Tim MD Immature granulocytes/100 WBC (Bld) 0 % Normal 0 [facility] Comment on above: Performed By: #### C P, LIP, CDP #### [address] [place] [id number] Pattern Checker: Lakhwinder Tim MD Lymphocytes (Bld) [#/Vol] 1.69 10*3/uL Normal 1.10-3.70 [facility] Comment on above: Performed By: #### C P, LIP, CDP #### [address] [place] [address] Pattern Checker: Lakhwinder Tim MD Lymphocytes/100 WBC (Bld) 38 % Normal 24-43 [facility] Comment on above: Performed By: #### C P, LIP, CDP #### [address] [place], [facility]83 Pattern Checker: Lakhwinder Tim MD MCH (RBC) [Entitic mass] 28.2 pg Normal 25.2-33.5 [facility] Comment on above: Performed By: #### C P, LIP, CDP #### [address] [place] [address] Pattern Checker: Lakhwinder Tim MD MCHC (RBC) [Mass/Vol] 32.4 g/dL Normal 28.4-34.[address] [facility] Comment on above: Performed By: #### C P, LIP, CDP #### [facility] [address] [place], [place] [address] Pattern Checker: Lakhwinder Tim MD MCV (RBC) [Entitic vol] 87.1 fL Normal 82.6-102.9 [facility] Comment on above: Performed By: #### C P, LIP, CDP #### [facility] [address] [place], [facility]83 Pattern Checker: Lakhwinder Tim MD Monocytes (Bld) [#/Vol] 0.36 10*3/uL Normal 0.10-1.20 [facility] Comment on above: Performed By: #### C P, LIP, CDP #### [address] [place], [facility]83 Pattern Checker: Lakhwinder Tim MD Monocytes/100 WBC (Bld) 8 % Normal 3-12 [facility] Comment on above: Performed By: #### C P, LIP, CDP #### [address] [place], [facility]83 Pattern Checker: Lakhwinder Tim MD Neutrophil (Seg) 50 % Normal 36-65 [facility] Comment on above: Performed By: #### C P, LIP, CDP #### [address] [place], [place] [address] Pattern Checker: Lakhwinder Tim MD NRBC Automated 0.0 per 100 WBC Normal 0.0 [facility] Comment on above: Performed By: #### C P, LIP, CDP #### [address] [place], [facility]83 Pattern Checker: Lakhwinder Tim MD Platelet mean volume (Bld) [Entitic vol] 10.3 fL Normal 8.1-13.5 [facility] Comment on above: Performed By: #### C P, LIP, CDP #### [address] [place] [address] Pattern Checker: Lakhwinder Tim MD Platelets (Bld) [#/Vol] 228 10*3/uL Normal 138-453 [facility] Comment on above: Performed By: #### C P, LIP, CDP #### [facility] [address] [place], [place] [address]308[address] Pattern Checker: Lakhwinder Tim MD RBC (Bld) [#/Vol] 4.04 10*6/uL Normal 3.95-5.11 [facility] Comment on above: Performed By: #### C P, LIP, CDP #### [facility] [address] [place], [place] [address]83 Pattern Checker: Lakhwinder Tim MD WBC (Bld) [#/Vol] 4.4 10*3/uL Normal 3.5-11.3 [facility] Comment on above: Performed By: #### C P, LIP, CDP #### [facility] [address] [place], [place] [address]83 Pattern Checker: Lakhwinder Tim MD [facility] 02-07-2024 Albumin [Mass/Vol] 3.7 g/dL Normal 3.2-5.3 [facility] Comment on above: Performed By: #### 2 823-3 #### [facility] ([id number]) [address] [facility] [place] [address] ALP [Catalytic activity/Vol] 45 U/L Normal 39-130 [facility] Comment on above: Performed By: #### 2 823-3 #### [facility] ([id number]) [address] [facility] [facility] [place] [address] ALT [Catalytic activity/Vol] 7 U/L Normal 0-31 [facility] Comment on above: Performed By: #### 2 823-3 #### [facility] ([id number]) [address], [address] [place] [address] Anion gap [Moles/Vol] 10 mmol/L Normal 5-15 [facility] Comment on above: Performed By: #### 2 823-3 #### [facility] ([id number]) [address], [address] [place] [address] AST [Catalytic activity/Vol] 12 U/L Normal 0-41 [facility] Comment on above: Performed By: #### 2 823-3 #### [facility] ([id number]) [address], [address] [place] [address] Bilirubin [Mass/Vol] 0.3 mg/dL Normal 0.3-1.2 [facility] Comment on above: Performed By: #### 2 823-3 #### [facility] ([id number]) [address], [address] [place] [address] Calcium [Mass/Vol] 9.1 mg/dL Normal 8.5-10.5 [facility] Comment on above: Performed By: #### 2 823-3 #### [facility] ([id number]) [address], [address] [place] [address] Chloride [Moles/Vol] 107 mmol/L Normal 98-109 [facility] Comment on above: Performed By: #### 2 823-3 #### [facility] ([id number]) [address], [address] [place] [address] CO2 [Moles/Vol] 25 mmol/L Normal 22-32 [facility] Comment on above: Performed By: #### 2 823-3 #### [facility] ([id number]) [address], [address] [place] [address] Creatinine [Mass/Vol] 0.54 mg/dL Normal 0.40-1.00 [facility] Comment on above: Result Comment: METH OD TRACEABLE TO IDMS STANDARD Performed By: #### 2 823-3 #### [facility] ([id number]) [address], [address] [place] [address] eGFR (CKD-EPI) NON-RACE DEPENDENT >90 Normal >59 [facility] Comment on above: Result Comment: Reported eGFR is based on the CKD-EPI 2020 equation that does not use a race coefficient. Performed By: #### 2 823-3 #### [facility] ([id number]) [address], [address] [place] [address] Glucose [Mass/Vol] 96 mg/dL Normal 65-99 [facility] Comment on above: Performed By: #### 2 823-3 #### [facility] ([id number]) [address] [place] [address] Potassium [Moles/Vol] 3.5 mmol/L Normal 3.5-5.0 [facility] Comment on above: Performed By: #### 2 823-3 #### [facility] ([id number]) [address], [address] [place] [address] Protein [Mass/Vol] 7.3 g/dL Normal 6.0-8.0 [facility] Comment on above: Performed By: #### 2 823-3 #### [facility] ([id number]) [address] [place] [address] Sodium [Moles/Vol] 142 mmol/L Normal 134-146 [facility] Comment on above: Performed By: #### 2 823-3 #### [facility] ([id number]) [address], [address] [place] [address] Urea nitrogen [Mass/Vol] 3 mg/dL Low 5-23 [facility] Comment on above: Performed By: #### 2 823-3 #### [facility] ([id number]) [address], [address] [place] [address] CT ABDOMEN PELVIS W IV CONTR Marichuy 02-07-2024 CT ABDOMEN PELVIS W IV CONTRAST EXAMINATION: CT OF THE ABDOMEN AND PELVIS WITH CONTRAST 02/07/2024 12:02 pm TECHNIQUE: CT of the abdomen and pelvis was performed with the administration of intravenous contrast. Multiplanar reformatted images are provided for review. Automated exposure control, iterative reconstruction, and/or weight based adjustment of the mA/kV was utilized to reduce the radiation dose to as low as reasonably achievable. COMPARISON: 02/03/2024 HISTORY: ORDERING SYSTEM PROVIDED HISTORY: right lower quadrant pain, righ tleg paresthesia TECHNOLOGIST PROVIDED HISTORY: right lower quadrant pain, righ tleg paresthesia Decision Support Exception - unselect if not a suspected or confirmed emergency medical condition->Emergency Medical Condition (MA) FINDINGS: Lower Chest: There is no consolidation or effusion. Organs: The liver, pancreas, spleen, kidneys and adrenals are unremarkable. GI/Bowel: There is no bowel dilatation, wall thickening or obstruction. The appendix is normal. Pelvis: The uterus is surgically absent. The bladder is unremarkable. Peritoneum/Retroperitoneu m: There is no free air, free fluid or intraperitoneal inflammatory change. There is no adenopathy. Bones/Soft Tissues: There is no acute fracture or aggressive osseous lesion. IMPRESSION: No acute abdominopelvic abnormality. Interpreted by: Carlos Alejo MD Signed by: Carlos Alejo MD 02/07/24 Final result Normal [facility] CT Abdomen and Pelvis W cont rast Alexsander 02-07-2024 No acute abdominopel davi abnormality. [facility] RIS CONSOLIDATED EXAMINATION: CT OF THE ABDOMEN AND PELVIS WITH CONTRAST 02/07/2024 12:02 pm TECHNIQUE: CT of the abdomen and pelvis was performed with the administration of intravenous contrast. Multiplanar reformatted images are provided for review. Automated exposure control, iterative reconstruction, and/or weight based adjustment of the mA/kV was utilized to reduce the radiation dose to as low as reasonably achievable. COMPARISON: 02/03/2024 HISTORY: ORDERING SYSTEM PROVIDED HISTORY: right lower quadrant pain, righ tleg paresthesia TECHNOLOGIST PROVIDED HISTORY: right lower quadrant pain, righ tleg paresthesia Decision Support Exception - unselect if not a suspected or confirmed emergency medical condition->Emergency Medical Condition (MA) FINDINGS: Lower Chest: There is no consolidation or effusion. Organs: The liver, pancreas, spleen, kidneys and adrenals are unremarkable. GI/Bowel: There is no bowel dilatation, wall thickening or obstruction. The appendix is normal. Pelvis: The uterus is surgically absent. The bladder is unremarkable. Peritoneum/Retroperitoneu m: There is no free air, free fluid or intraperitoneal inflammatory change. There is no adenopathy. Bones/Soft Tissues: There is no acute fracture or aggressive osseous lesion. [facility] RIS CONSOLIDATED Carlos Alejo MD - 02/07/2024 EXAMINATION: CT OF THE ABDOMEN AND PELVIS WITH CONTRAST 02/07/2024 12:02 pm TECHNIQUE: CT of the abdomen and pelvis was performed with the administration of intravenous contrast. Multiplanar reformatted images are provided for review. Automated exposure control, iterative reconstruction, and/or weight based adjustment of the mA/kV was utilized to reduce the radiation dose to as low as reasonably achievable. COMPARISON: 02/03/2024 HISTORY: ORDERING SYSTEM PROVIDED HISTORY: right lower quadrant pain, righ tleg paresthesia TECHNOLOGIST PROVIDED HISTORY: right lower quadrant pain, righ tleg paresthesia Decision Support Exception - unselect if not a suspected or confirmed emergency medical condition->Emergency Medical Condition (MA) FINDINGS: Lower Chest: There is no consolidation or effusion. Organs: The liver, pancreas, spleen, kidneys and adrenals are unremarkable. GI/Bowel: There is no bowel dilatation, wall thickening or obstruction. The appendix is normal. Pelvis: The uterus is surgically absent. The bladder is unremarkable. Peritoneum/Retroperitoneu m: There is no free air, free fluid or intraperitoneal inflammatory change. There is no adenopathy. Bones/Soft Tissues: There is no acute fracture or aggressive osseous lesion. IMPRESSION: No acute abdominopelvic abnormality. [facility] Radiology Study observation (narrative) [facility] CT Abdomen and Pelvis W cont rast IVOrdered By: Carlos Alejo on 02-07-2024 [facility] Work Phone: Comp Metabolic Profon 2023 Albumin [Mass/Vol] 4.2 g/dL Normal 3.5-5.2 [facility] Comment on above: Performed By: #### C P, LIP, CDP #### [facility] [address] [place], [place] [id number] Pattern Checker: Lakhwinder Tim MD Albumin/Glob Ratio 1.2 Normal 1.0-2.5 [facility] Comment on above: Performed By: #### C P, LIP, CDP #### [facility] [address] [place], [place] [address] Pattern Checker: Lakhwinder Tim MD Alkaline Phos 56 U/L Normal 35-104 [facility] Comment on above: Performed By: #### C P, LIP, CDP #### [facility] [address] [place], [place] 25[address] Pattern Checker: Lakhwinder Tim MD ALT [Catalytic activity/Vol] 7 U/L Normal 5-33 [facility] Comment on above: Performed By: #### C P, LIP, CDP #### [facility] [address] [place], [place] [address] Pattern Checker: Lakhwinder Tim MD Anion gap [Moles/Vol] 11 mmol/L Normal 9-[address] [facility] Comment on above: Performed By: #### C P, LIP, CDP #### [address] [place], [place] [id number] Pattern Checker: Lakhwinder Tim MD AST [Catalytic activity/Vol] 13 U/L Normal <32 [facility] Comment on above: Performed By: #### C P, LIP, CDP #### [facility] [address] [place], [place] 5220983 Pattern Checker: Lakhwinder Tim MD Bilirubin [Mass/Vol] 0.2 mg/dL Low 0.3-1.2 [facility] Comment on above: Performed By: #### C P, LIP, CDP #### [facility] [address] [place], [place] [id number] Pattern Checker: Lakhwinder Tim MD BUN/CRE Ratio 8 Low 9-20 [facility] Comment on above: Performed By: #### C P, LIP, CDP #### [facility] [address] [place], [place] [id number] Pattern Checker: Lakhwinder Tim MD Calcium [Mass/Vol] 9.1 mg/dL Normal 8.6-10.4 [facility] Comment on above: Performed By: #### C P, LIP, CDP #### [facility] [address] [place], [place] 8126583 Pattern Checker: Lakhwinder Tim MD Chloride [Moles/Vol] 102 mmol/L Normal 98-107 [facility] Comment on above: Performed By: #### C P, LIP, CDP #### [facility] [address] [place] [address] [place] [place], [place] 8393783 Pattern Checker: Lakhwinder Tim MD CO2 [Moles/Vol] 26 mmol/L Normal 20-31 [facility] Comment on above: Performed By: #### C P, LIP, CDP #### [facility] [address] [place] [address] [place] [place], [place] [id number] Pattern Checker: Lakhwinder Tim MD Creatinine [Mass/Vol] 0.5 mg/dL Normal 0.5-0.[address] [facility] Comment on above: Performed By: #### C P, LIP, CDP #### [facility] [address] [place], [place] 9885083 Pattern Checker: Lakhwinder Tim MD GFR/1.73 sq M.predicted among non-blacks MDRD (S/P/Bld) [Vol rate/Area] mL/min/{1.73_m2} Normal >60 [facility] Comment on above: Result Comment: These results are not intended for use in patients <18 years of age. eGFR results are calculated without a race factor using the 2020 CKD-EPI equation. Careful clinical correlation is recommended, particularly when comparing to results calculated using previous equations. The CKD-EPI equation is less accurate in patients with extremes of muscle mass, extra-renal metabolism of creatine, excessive creatine ingestion, or following therapy that affects renal tubular secretion. Performed By: #### C P, LIP, CDP #### [facility] [address] [place], [place] 9455383 Pattern Checker: Lakhwinder Tim MD Glucose [Mass/Vol] 83 mg/dL Normal 70-99 [facility] Comment on above: Performed By: #### C P, LIP, CDP #### [facility] [address] [place], [place] 2869783 Pattern Checker: Lakhwinder Tim MD Potassium [Moles/Vol] 4.1 mmol/L Normal 3.7-5.[address] [facility] Comment on above: Performed By: #### C P LIP, CDP #### [facility] [address] [place], [place] [id number] Pattern Checker: Lakhwinder Tim MD Protein [Mass/Vol] 7.7 g/dL Normal 6.4-8.3 [facility] Comment on above: Performed By: #### C P LIP, CDP #### [address] [place], [place] [id number] Pattern Checker: Lakhwinder Tim MD Sodium [Moles/Vol] 139 mmol/L Normal 135-144 [facility] Comment on above: Performed By: #### C P LIP, CDP #### [facility] [address] [place], [place] 0281083 Pattern Checker: Lakhwinder Tim MD Urea nitrogen [Mass/Vol] 4 mg/dL Low 6-20 [facility] Comment on above: Performed By: #### C P, LIP, CDP #### [facility] [address] [place], [place] 9479683 Pattern Checker: Lakhwinder Tim MD Comprehensive Metabolic Pane [facility] 02-07-2024 Albumin [Mass/Vol] 4.2 g/dL 3.5 - 5.2 g/dL [facility] Albumin/Globulin [Mass ratio] 1.2 {ratio} 1.0 - 2.5 [facility] ALP [Catalytic activity/Vol] 56 U/L 35 - 104 U/L [facility] ALT [Catalytic activity/Vol] 7 U/L 5 - 33 U/L [facility] Anion gap [Moles/Vol] 11 mmol/L 9 - 17 mmol/L [facility] AST [Catalytic activity/Vol] 13 U/L NINF - 32 U/L [facility] Bilirubin [Mass/Vol] 0.2 mg/dL Low 0.3 - 1 .2 mg/dL [facility] Calcium [Mass/Vol] 9.1 mg/dL 8.6 - 10. 4 mg/dL [facility] Chloride [Moles/Vol] 102 mmol/L 98 - 10 7 mmol/L [facility] CO2 [Moles/Vol] 26 mmol/L 20 - 31 mmol/L [facility] Creatinine [Mass/Vol] 0.5 mg/dL 0.5 - 0.9 mg/dL [facility] Est, Glom Filt Rate - PINF [facility] Comment on above: These results are not intended for use in patients <18 years of age. eGFR results are calculated without a race factor using the 2020 CKD-EPI equation. Careful clinical correlation is recommended, particularly when comparing to results calculated using previous equations. The CKD-EPI equation is less accurate in patients with extremes of muscle mass, extra-renal metabolism of creatine, excessive creatine ingestion, or following therapy that affects renal tubular secretion. Glucose [Mass/Vol] 83 mg/dL 70 - 99 mg/dL [facility] Interpretation and review of laboratory results Abnormal [facility] Potassium [Moles/Vol] 4.1 mmol/L 3.7 - 5.3 mmol/L [facility] Protein [Mass/Vol] 7.7 g/dL 6.4 - 8.3 g/dL [facility] Sodium [Moles/Vol] 139 mmol/L 135 - 144 mmol/L [facility] Urea nitrogen [Mass/Vol] 4 mg/dL Low 6 - 20 mg/dL [facility] Urea nitrogen/Creatinine [Mass ratio] 8 mg/mg Low 9 - 20 [facility] LIPASEon 02-07-2024 Lipase [Catalytic activity/Vol] 11 U/L Normal 11-82 [facility] Comment on above: Performed By: #### C BCA, 77828-1, PINR, [id number], CMP #### [facility] ([id number]) [address] [place] [address], [address] [place] [address] Lactic Acidon 02-07-2024 Lactate (BldV) [Moles/Vol] 0.6 mmol/L 0.5 - 2.2 mmol/L [facility] Lactate [Moles/Vol] 0.6 mmol/L Normal 0.5-2.2 [facility] Comment on above: Performed By: #### C P, LIP, CDP #### [facility] [address] [place] [address] Pattern Checker: Lakhwinder Tim MD Lipaseon 02-07-2024 Lipase [Catalytic activity/Vol] 19 U/L 13 - 60 U/L [facility] Lipase [Catalytic activity/Vol] 19 U/L Normal 13-60 [facility] Comment on above: Performed By: #### C P, LIP, CDP #### [facility] [address] [place] [address] Pattern Checker: Lakhwinder Tim MD Microscopic Urinalysison Epithelial cells LM.HPF (Urine sed) [#/Area] 0 TO 2 [facility] RBC LM.HPF (Urine sed) [#/Area] 0 TO 2 [facility] WBC LM.HPF (Urine sed) [#/Area] 0 TO 2 [facility] No Panel Informationon 02-06 [facility] Troponin I.cardiac High sens itivity method [Mass/Vol]on 02-07-2024 1 HOUR TROP I, HIGH SENSITIVITY <2 Normal <16 [facility] Comment on above: Performed By: #### C BCA, 39507-3, PINR, [id number], CMP #### [facility] ([id number]) [address], [address] [place] [address] TROPONIN I, HIGH SENSITIVITY <2 Normal <16 [facility] Comment on above: Performed By: #### C BCA, 36283-8, PINR, [id number], CMP #### [facility] ([id number]) [address], [address] [place] [address] UA w/Reflex Cultureon 2023 Bilirubin, SemiQt,Ur Negative Normal NEG [facility] Comment on above: Performed By: #### U MICAO, UAX #### [facility] [address] [place] [address] Pattern Checker: Lakhwinder Tim MD Blood, Urine Negative Normal NEG [facility] Comment on above: Performed By: #### U MICAO, UAX #### [facility] [address] [place], [place] 2185183 Pattern Checker: Lakhwinder Tim MD Clarity (U) Clear Normal CLEAR [facility] Comment on above: Performed By: #### U MICAO, UAX #### [facility] [address] [place], [place] 8505783 Pattern Checker: Lakhwinder Tim MD Color (U) Yellow Normal YEL [facility] Comment on above: Performed By: #### U MICAO, UAX #### [facility] [address] [place], [place] 5973483 Pattern Checker: Lakhwinder Tim MD Glucose Ql (U) Negative Normal NEG [facility] Comment on above: Performed By: #### U MICAO, UAX #### [facility] [address] [place] [address] Pattern Checker: Lakhwinder Tim MD Ketones Ql (U) Negative Normal NEG [facility] Comment on above: Performed By: #### U MICAO, UAX #### [facility] [address] [place] [address] [place] [address] Pattern Checker: Lakhwinder Tim MD Leukocyte esterase Test strip Ql (U) Negative Normal NEG [facility] Comment on above: Performed By: #### U MICAO, UAX #### [facility] [address] [place] [address] [place], [place] [id number] Pattern Checker: Lakhwinder Tim MD Nitrite,Ur Negative Normal NEG [facility] Comment on above: Performed By: #### U MICAO, UAX #### [address] [place] [address] Pattern Checker: Lakhwinder Tim MD PH,Ur 7.5 Normal 5.0-9.0 [facility] Comment on above: Performed By: #### U MICAO, UAX #### [facility] [address] [place] [address] [place] [address] Pattern Checker: Lakhwinder Tim MD Protein Ql (U) Negative Normal NEG [facility] Comment on above: Performed By: #### U MICAO, UAX #### [address] [place] [address] Pattern Checker: Lakhwinder Tim MD Spec. Fackler,Ur 1.010 Normal 1.010-1.020 [facility] Comment on above: Performed By: #### U MICAO, UAX #### [facility] [address] [place] [address] [place], [place] [id number] Pattern Checker: Lakhwinder Tim MD Urobilinogen,Ur Normal Normal 0.0-1.0 [facility] Comment on above: Performed By: #### U MICAO, UAX #### [facility] [address] [place] [address] [place], [place] 7268083 Pattern Checker: Lakhwinder Sturtz, MD URN MACROSCOPIC NURon 2023 BILIRUBIN LYNSEY Negative Normal NEG [facility] Comment on above: Performed By: #### C BCA, 99555-0, PINR, [id number], CMP #### [facility] ([id number]) [address], [address] [place] [address] BLOOD/HGB LYNSEY Trace Abnormal NEG [facility] Comment on above: Performed By: #### C BCA, 04467-4, PINR, [id number], CMP #### [facility] ([id number]) [address], [address] [place] [address] GLUCOSE LYNSEY Negative Normal NEG [facility] Comment on above: Performed By: #### C BCA, 92308-9, PINR, [id number], CMP #### [facility] ([id number]) [address], [address] [place] [address] KETONES LYNSEY Negative Normal NEG [facility] Comment on above: Performed By: #### C BCA, 27705-9, PINR, [id number], CMP #### [facility] ([id number]) [address], [address] [place] [address] LEUKOCYTE ESTERASE LYNSEY Negative Normal NEG [facility] Comment on above: Performed By: #### C BCA, 80949-0, PINR, [id number], CMP #### [facility] ([id number]) [address], [address] [place] [address] NITRITE LYNSEY Negative Normal NEG [facility] Comment on above: Performed By: #### C BCA, 89475-9, PINR, [id number], CMP #### [facility] ([id number]) [address], [address] [place] [address] PH LYNSEY 7.0 Normal 5.0-8.5 [facility] Comment on above: Performed By: #### C BCA, 46483-2, PINR, [id number], CMP #### [facility] ([id number]) [address], [address] [place] [address] PROTEIN LYNSEY Negative Normal NEG [facility] Comment on above: Performed By: #### C BCA, 79162-3, PINR, [id number], CMP #### [facility] ([id number]) [address], [address] [place] [address] SPECIFIC GRAVITY LYNSEY 1.020 Normal 1.003-1.035 [facility] Comment on above: Performed By: #### C BCA, 40980-4, PINR, [id number], CMP #### [facility] ([id number]) [address], [address] [place] [address] UROBILINOGEN LYNSEY 0.2 eu/dL Normal <1.1 [facility] Comment on above: Performed By: #### C BCA, 16104-4, PINR, [id number], CMP #### [facility] ([id number]) [address], [address] [place] [address] US PELVIC WITH TRANSVAGINAL AND DUPLEXon 02-07-2024 US PELVIC WITH TRANSVAGINAL AND DUPLEX US PELVIC WITH TRANSVAGINAL AND DUPLEX CLINICAL INFORMATION: Right lower quadrant pain TECHNIQUE: Real-time transabdominal and transvaginal sonographic evaluation of the pelvis was performed with mitchell scale and color flow imaging. Transabdominal imaging performed to evaluate for extra adnexal pelvic pathology. Transvaginal imaging performed for better delineation of the adnexal and endometrial contents. Real time mitchell scale, color flow imaging and duplex spectral Doppler waveform analysis evaluation was performed of the major arterial inflow and venous outflow structures of the ovaries with arterial and venous spectral waveforms obtained and reviewed in view of the clinical history of right lower quadrant pain. Duplex spectral Doppler document arterial and venous spectral waveforms documented within the major arterial inflow and venous outflow of both ovaries. Arterial and venous Doppler duplex spectral waveforms were evaluated. COMPARISON: Pelvic ultrasound 04/22/2021 FINDINGS: Uterus is surgically absent. No fluid collection at the hysterectomy site. Unremarkable appearance of the urinary bladder Right ovary is 4.2 x 4.4 x 3.7 cm. It contains an echogenic hypoechoic lesion that measures 2.5 x 2.9 x 2.4 cm. Normal arterial and venous spectral waveforms. No adnexal free fluid. The left ovary is 2.3 x 1.8 x 1.9 cm. No ovarian mass. Normal arterial and venous spectral waveforms. No adnexal free fluid. IMPRESSION: * No sonographic evidence of ovarian torsion. * Complex right ovarian lesion likely representing hemorrhagic cyst. Follow-up pelvic ultrasound is recommended in 6-12 weeks in a woman of reproductive age. Recommendations for adnexal cyst follow-up per Society of Radiologists in Ultrasound 2009 consensus statement on management of asymptomatic and ovarian and other adnexal cysts (Downs et al., Radiology 2010 256: 943-54). Finalized by Dwayne Cifuentes MD on 02/07/2024 10:56 PM Normal [facility] Urinalysis with Reflex to Cu ltureon 02-07-2024 Bilirubin Ql (U) Negative NE[facility]IVE [facility] Clarity (U) Clear Clear [facility] Color (U) Yellow Yellow [facility] Glucose Test strip (U) [Mass/Vol] Negative NEGATIVE mg/dL [facility] Hemoglobin Auto test strip Ql (U) Negative NEGATIVE [facility] Ketones (U) [Mass/Vol] Negative NEGATIVE mg/dL [facility] Leukocyte esterase Test strip Ql (U) Negative NEGATIVE [facility] Nitrite Ql (U) Negative NEGATIVE [facility] pH (U) 7.5 [pH] 5.0 - 9.0 [facility] Protein (U) [Mass/Vol] Negative NEGATIVE mg/dL [facility] Specific gravity (U) [Rel density] 1.010 1.010 - 1.020 [facility] Urobilinogen Qn (U) Normal 0.0 - 1. 0 EU/dL [facility] Urinalysis,Microon 4 Epithelial cells LM Ql (Urine sed) 0 TO 2 Normal 0-25 [facility] Comment on above: Performed By: #### U JERALD COLLINS #### [facility] [address] [place] [address] Pattern Checker: Lakhwinder Tim MD Urine RBC's 0 TO 2 Normal 0-2 [facility] Comment on above: Performed By: #### U MICAO, UAX #### [facility] [address] [place] [address] Pattern Checker: Lakhwinder Tim MD Urine WBC's 0 TO 2 Normal 0-5 [facility] Comment on above: Performed By: #### U MICAO, UAX #### [facility] [address] [place] [address] Pattern Checker: Lakhwinder Tim MD Urine collection deviceon ER EXTRA URINES ER EXTRA URINE ORDER IN PROCESS Normal [facility] Vaginitis DNA Probeon 2023 Anca Negative Normal NEG [facility] Comment on above: Result Comment: for Anca sp. Method of testing is a DNA probe intended for detection and identification of Anca species, Gardnerella vaginalis, and Trichomonas vaginalis nucleic acid in vaginal fluid specimens from patients with symptoms of vaginitis/vaginosis. Performed By: #### U MICAO, UAX #### [facility] [address] [place] [address] [place] [address] Pattern Checker: Lakhwinder Tim MD Gardnerella Negative Normal NEG [facility] Comment on above: Result Comment: for Gardnerella vaginalis Performed By: #### U MICAO, UAX #### [facility] [address] [place] [address] Pattern Checker: Lakhwinder Tim MD Trichomonas Negative Normal NEG [facility] Comment on above: Result Comment: for Trichomonas Vaginalis Performed By: #### U MICAO, UAX #### [facility] [address] [place] [address] Pattern Checker: Lakhwinder Tim MD Cult,Bloodon 02-06-2024 Cult,Blood Specimen Description .BLOOD Special Requests 20ML RAC Culture POSITIVE Blood Culture DIRECT GRAM STAIN FROM BOTTLE: GRAM POSITIVE COCCI IN CLUSTERS STAPHYLOCOCCUS SPECIES, COAGULASE NEGATIVE A single positive blood culture of coagulase negative Staphylocci, diphtheroids,micrococci, Cutibacterium, viridans Streptocci, Bacillus, or Lactobacillus species should be interpreted with caution and viewed as a likely skin contaminant. (NOTE) Direct Gram Stain from bottle result called to and read back by:ROLAND AGUILLON 02/04/2024 @1655 by tech [id number] Report Status FINAL 02/06/2024 Normal [facility] Comment on above: Performed By: #### B C #### [address] [place] [address] Pattern Checker: Sacha Lai MD [address] [place] [address] Pattern Checker: Lakhwinder Tim MD Vaginitis DNA Probeon 2023 Source .VAGINAL SWAB Normal [facility] Comment on above: Performed By: #### U MICAO UAX #### [facility] [address] [place] [address] Pattern Checker: Lakhwinder Tim MD Basic Metabolic Profon 02-048 Anion gap [Moles/Vol] 10 mmol/L Normal 03-[address] [facility] Comment on above: Performed By: #### C P, LIP, CDP #### [facility] [address] [place] [address] Pattern Checker: Lakhwinder Tim MD BUN/CRE Ratio 10 Normal - [facility] Comment on above: Performed By: #### C P, LIP, CDP #### [facility] [address] [place] [address] Pattern Checker: Lakhwinder Tim MD Calcium [Mass/Vol] 9.1 mg/dL Normal 8.6-10.4 [facility] Comment on above: Performed By: #### C P, LIP, CDP #### [facility] [address] [place], [place] 7940583 Pattern Checker: Lakhwinder Tim MD Chloride [Moles/Vol] 102 mmol/L Normal 98-107 [facility] Comment on above: Performed By: #### C P, LIP, CDP #### [facility] [address] [place], [place] 2935283 Pattern Checker: Lakhwinder Tim MD CO2 [Moles/Vol] 27 mmol/L Normal 20-31 [facility] Comment on above: Performed By: #### C P, LIP, CDP #### [facility] [address] [place], [place] 8505883 Pattern Checker: Lakhwinder Tim MD Creatinine [Mass/Vol] 0.7 mg/dL Normal 0.5-0.[address] [facility] Comment on above: Performed By: #### C P, LIP, CDP #### [facility] [address] [place], [place] 0765283 Pattern Checker: Lakhwinder Tim MD GFR/1.73 sq M.predicted among non-blacks MDRD (S/P/Bld) [Vol rate/Area] mL/min/{1.73_m2} Normal >60 [facility] Comment on above: Result Comment: These results are not intended for use in patients <18 years of age. eGFR results are calculated without a race factor using the 2020 CKD-EPI equation. Careful clinical correlation is recommended, particularly when comparing to results calculated using previous equations. The CKD-EPI equation is less accurate in patients with extremes of muscle mass, extra-renal metabolism of creatine, excessive creatine ingestion, or following therapy that affects renal tubular secretion. Performed By: #### C P, LIP, CDP #### [facility] [address] [place], [place] 32[address]3 Pattern Checker: Lakhwinder Tim MD Glucose [Mass/Vol] 93 mg/dL Normal 70-99 [facility] Comment on above: Performed By: #### C P, LIP, CDP #### [facility] [address] [place], [place] 2649383 Pattern Checker: Lakhwinder Tim MD Potassium [Moles/Vol] 3.7 mmol/L Normal 3.7-5.[address] [facility] Comment on above: Performed By: #### C P, LIP, CDP #### [address] [place], [facility]83 Pattern Checker: Lakhwinder Tim MD Sodium [Moles/Vol] 139 mmol/L Normal 135-144 [facility] Comment on above: Performed By: #### C P, LIP, CDP #### [address] [place], [facility]83 Pattern Checker: Lakhwinder Tim MD Urea nitrogen [Mass/Vol] 7 mg/dL Normal 6-20 [facility] Comment on above: Performed By: #### C P, LIP, CDP #### [address] [place], [facility]83 Pattern Checker: Lakhwinder Tim MD CBC with Diffon 02-05-2024 Abs. Basophil <0.03 Normal 0.00-0.20 [facility] Comment on above: Performed By: #### C P, LIP, CDP #### [address] [place], [place] 6434383 Pattern Checker: Lakhwinder Tim MD Abs.Imm.Granulocyte <0.03 Normal 0.00-0.30 [facility] Comment on above: Performed By: #### C P, LIP, CDP #### [address] [place], [facility]83 Pattern Checker: Lakhwinder Tim MD Abs.Neutrophil (Seg) 3.35 k/uL Normal 1.50-8.10 [facility] Comment on above: Performed By: #### C P, LIP, CDP #### [address] [place], [place] [address] Pattern Checker: Lakhwinder Tim MD Basophils/100 WBC (Bld) 0 % Normal 0-2 [facility] Comment on above: Performed By: #### C P, LIP, CDP #### [address] [place], [facility]83 Pattern Checker: Lakhwinder Tim MD Eosinophils (Bld) [#/Vol] 0.10 10*3/uL Normal 0.00-0.44 [facility] Comment on above: Performed By: #### C P, LIP, CDP #### [address] [place], [place] [address] Pattern Checker: Lakhwinder Tim MD Eosinophils/100 WBC (Bld) 2 % Normal 1-4 [facility] Comment on above: Performed By: #### C P, LIP, CDP #### [address] [place], [facility]83 Pattern Checker: Lakhwinder Tim MD Erythrocyte distribution width (RBC) [Ratio] 15.0 % High 11.8-14.4 [facility] Comment on above: Performed By: #### C P, LIP, CDP #### [address] [place], [facility]83 Pattern Checker: Lakhwinder Tim MD Hematocrit (Bld) [Volume fraction] 33.6 % Low 36.3-47.1 [facility] Comment on above: Performed By: #### C P, LIP, CDP #### [address] [place], [facility]83 Pattern Checker: Lakhwinder Tim MD Hemoglobin (Bld) [Mass/Vol] 11.0 g/dL Low 11.9-15.1 [facility] Comment on above: Performed By: #### C P, LIP, CDP #### [address] [place], [facility]83 Pattern Checker: Lakhwinder Tim MD Immature granulocytes/100 WBC (Bld) 0 % Normal 0 [facility] Comment on above: Performed By: #### C P, LIP, CDP #### [facility] [address] [place], [place] [id number] Pattern Checker: Lakhwinder Tim MD Lymphocytes (Bld) [#/Vol] 2.20 10*3/uL Normal 1.10-3.70 [facility] Comment on above: Performed By: #### C P, LIP, CDP #### [facility] [address] [place], [place] [address] Pattern Checker: Lakhwinder Tim MD Lymphocytes/100 WBC (Bld) 35 % Normal 24-43 [facility] Comment on above: Performed By: #### C P, LIP, CDP #### [address] [place], [place] [address] Pattern Checker: Lakhwinder Tim MD MCH (RBC) [Entitic mass] 28.2 pg Normal 25.2-33.5 [facility] Comment on above: Performed By: #### C P, LIP, CDP #### [address] [place], [place] [address] Pattern Checker: Lakhwinder Tim MD MCHC (RBC) [Mass/Vol] 32.7 g/dL Normal 28.4-34.[address] [facility] Comment on above: Performed By: #### C P, LIP, CDP #### [address] [place], [facility]83 Pattern Checker: Lakhwinder Tim MD MCV (RBC) [Entitic vol] 86.2 fL Normal 82.6-102.9 [facility] Comment on above: Performed By: #### C P, LIP, CDP #### [address] [place], [place] [id number] Pattern Checker: Lakhwinder Tim MD Monocytes (Bld) [#/Vol] 0.59 10*3/uL Normal 0.10-1.20 [facility] Comment on above: Performed By: #### C P, LIP, CDP #### [facility] [address] [place] [address] Pattern Checker: Lakhwinder Tim MD Monocytes/100 WBC (Bld) 9 % Normal 3-12 [facility] Comment on above: Performed By: #### C P, LIP, CDP #### [facility] [address] [place] [address] Pattern Checker: Lakhwinder Tim MD Neutrophil (Seg) 54 % Normal 36-65 [facility] Comment on above: Performed By: #### C P, LIP, CDP #### [address] [place] [address] Pattern Checker: Lakhwinder Tim MD NRBC Automated 0.0 per 100 WBC Normal 0.0 [facility] Comment on above: Performed By: #### C P, LIP, CDP #### [address] [place] [address] Pattern Checker: Lakhwinder Tim MD Platelet mean volume (Bld) [Entitic vol] 10.0 fL Normal 8.1-13.5 [facility] Comment on above: Performed By: #### C P, LIP, CDP #### [address] [place] [address] Pattern Checker: Lakhwinder Tim MD Platelets (Bld) [#/Vol] 261 10*3/uL Normal 138-453 [facility] Comment on above: Performed By: #### C P, LIP, CDP #### [address] [place], [place] [id number] Pattern Checker: Lakhwinder Tim MD RBC (Bld) [#/Vol] 3.90 10*6/uL Low 3.95-5.11 [facility] Comment on above: Performed By: #### C P, LIP, CDP #### [facility] [address] [place], [place] [id number] Pattern Checker: Lakhwinder Tim MD WBC (Bld) [#/Vol] 6.3 10*3/uL Normal 3.5-11.3 [facility] Comment on above: Performed By: #### C P, LIP, CDP #### [facility] [address] [place], [place] [id number] Pattern Checker: Lakhwinder Tim MD UA w/Reflex Cultureon 2023 Bilirubin, SemiQt,Ur Negative Normal NEG [facility] Comment on above: Performed By: #### U MICAO, UAX #### [facility] [address] [place] [address] Dr[address] [place], [place] [id number] Pattern Checker: Lakhwinder Tim MD Blood, Urine Negative Normal NEG [facility] Comment on above: Performed By: #### U MICAO, UAX #### [facility] [address] [place], [place] [id number] Pattern Checker: Lakhwinder Tim MD Clarity (U) Clear Normal CLEAR [facility] Comment on above: Performed By: #### U MICAO, UAX #### [facility] [address] [place], [place] [phone] Pattern Checker: Lakhwinder Tim MD Color (U) Yellow Normal YEL [facility] Comment on above: Performed By: #### U MICAO, UAX #### [facility] [address] [place], [place] [phone] Pattern Checker: Lakhwinder Tim MD Glucose Ql (U) Negative Normal NEG [facility] Comment on above: Performed By: #### U MICAO, UAX #### [facility] [address] [place], [place] [id number] Pattern Checker: Lakhwinder Tim MD Ketones Ql (U) Negative Normal NEG [facility] Comment on above: Performed By: #### U MICAO, UAX #### [facility] [address] [place] [address] [place] [address] Pattern Checker: Lakhwinder Tim MD Leukocyte esterase Test strip Ql (U) Negative Normal NEG [facility] Comment on above: Performed By: #### U MICAO, UAX #### [facility] [address] [place] [address] Dr. [place], [facility]83 Pattern Checker: Lakhwinder Tim MD Nitrite,Ur Negative Normal NEG [facility] Comment on above: Performed By: #### U MICAO, UAX #### [address] [place], [facility]83 Pattern Checker: Lakhwinder Tim MD PH,Ur 8.0 Normal 5.0-9.0 [facility] Comment on above: Performed By: #### U MICAO, UAX #### [facility] [address] [place] [address] Dr. [place], [facility]83 Pattern Checker: Lakhwinder Tim MD Protein Ql (U) Negative Normal NEG [facility] Comment on above: Performed By: #### U MICAO, UAX #### [facility] [address] [place] [address] Dr. [place], [facility]83 Pattern Checker: Lakhwinder Tim MD Spec. Fackler,Ur 1.020 Normal 1.010-1.020 [facility] Comment on above: Performed By: #### U MICAO, UAX #### [facility] [address] [place] [address] Dr[address] [place], [place] [id number] Pattern Checker: Lakhwinder Tim MD Urobilinogen,Ur Normal Normal 0.0-1.0 [facility] Comment on above: Performed By: #### U MICAO, UAX #### [facility] [address] [place] [address] Dr. [place], [place] [phone] Pattern Checker: Lakhwinder Tmi MD US PELVIS COMPLETEon 024 US PELVIS COMPLETE EXAMINATION: PELVIC ULTRASOUND 02/05/2024 TECHNIQUE: Transabdominal and transvaginal pelvic duplex ultrasound using B-mode/mitchell scaled imaging, Doppler spectral analysis and color flow Doppler was obtained. COMPARISON: CT abdomen and pelvis 02/03/2024. Pelvic ultrasound 11/28/2023. HISTORY: ORDERING SYSTEM PROVIDED HISTORY: abscess TECHNOLOGIST PROVIDED HISTORY: abscess FINDINGS: Measurements: Uterus: Status post hysterectomy Right Ovary:2.4 x 1.9 x 2.6 cm Left Ovary: 2.9 x 3.2 x 2.6 cm Ultrasound Findings: Right Ovary: Right ovary is within normal limits with normal appearing follicles. Grossly normal color Doppler flow. Left Ovary: Left ovary is within normal limits with normal appearing follicles . Grossly normal color Doppler flow. Free Fluid: No evidence of free fluid. IMPRESSION: 1. Status post hysterectomy. 2. Normal appearance of the ovaries. 3. No free fluid. Interpreted by: Jacob Cotter MD Signed by: Jacob Cotter MD 02/05/24 Final result Normal [facility] Urinalysis,Microon 4 Bacteria TRACE Abnormal NONE [facility] Comment on above: Performed By: #### U OSMINO, UAX #### [facility] [address] [place] [address] Pattern Checker: Lakhwinder Tim MD Epithelial cells LM Ql (Urine sed) 0 TO 2 Normal 0-25 [facility] Comment on above: Performed By: #### U OSMINO, UAX #### [facility] [address] [place] [address] Pattern Checker: Lakhwinder Tim MD Mucus Strands TRACE Abnormal NONE [facility] Comment on above: Performed By: #### U MICAO, UAX #### [facility] [address] [place] [address] Pattern Checker: Lakhwinder Tim MD Urine RBC's 0 TO 2 Normal 0-2 [facility] Comment on above: Performed By: #### U MICAO, UAX #### [facility] [address] [place] [address] Pattern Checker: Lakhwinder Tim MD Urine WBC's 0 TO 2 Normal 0-5 [facility] Comment on above: Performed By: #### U MICAO, UAX #### [facility] [address] [place] [address] Pattern Checker: Lakhwinder Tim MD CBC with Auto Differentialon 02-03-2024 Basophils (Bld) [#/Vol] 0.03 10*3/uL [facility] Basophils/100 WBC (Bld) 0 % 0 - 2 % [facility] Eosinophils (Bld) [#/Vol] 0.13 10*3/uL [facility] Eosinophils/100 WBC (Bld) 2 % 1 - 4 % [facility] Erythrocyte distribution width (RBC) [Ratio] 14.9 % High 11.8 - 14.4 % [facility] Hematocrit (Bld) [Volume fraction] 33.2 % Low 36.3 - 47.1 % [facility] Hemoglobin (Bld) [Mass/Vol] 10.8 g/dL Low 11.9 - 15.1 g/dL [facility] Immature granulocytes (Bld) [#/Vol] [facility] Immature granulocytes/100 WBC (Bld) 0 % 0 [facility] Interpretation and review of laboratory results Abnormal [facility] Lymphocytes/100 WBC (Bld) 48 % High 24 - 43 % [facility] Lymphocytes/100 WBC (Bld) 3.20 % [facility] MCH (RBC) [Entitic mass] 27.8 pg 25.2 - 33.5 pg [facility] MCHC (RBC) [Mass/Vol] 32.5 g/dL 28.4 - 34.8 g/dL [facility] MCV (RBC) [Entitic vol] 85.6 fL 82.6 - 102.9 fL [facility] Monocytes/100 WBC (Bld) 9 % 3 - 12 % [facility] Monocytes/100 WBC (Bld) 0.63 % [facility] Neutrophils/100 WBC (Bld) 41 % 36 - 65 % [facility] Nucleated RBC/100 WBC (Bld) [Ratio] 0.0 % 0.0 per 100 WBC [facility] Platelet mean volume (Bld) [Entitic vol] 9.8 fL 8.1 - 13.5 fL [facility] Platelets (Bld) [#/Vol] 275 10*3/uL [facility] RBC (Bld) [#/Vol] 3.88 10*6/uL Low 3.95 - 5.1 1 m/uL [facility] Segmented neutrophils/100 WBC (Bld) 2.78 % [facility] WBC other (Bld) [#/Vol] 6.8 [facility] CBC with Diffon 02-03-2024 Abs. Basophil 0.03 k/uL Normal 0.00-0.20 [facility] Comment on above: Performed By: #### C P, LIP, CDP #### [facility] [address] [place] [address] [place] [address] Pattern Checker: Lakhwinder Tim MD Abs.Imm.Granulocyte <0.03 Normal 0.00-0.30 [facility] Comment on above: Performed By: #### C P, LIP, CDP #### [address] [place] [id number] Pattern Checker: Lakhwinder Tim MD Abs.Neutrophil (Seg) 2.78 k/uL Normal 1.50-8.10 [facility] Comment on above: Performed By: #### C P, LIP, CDP #### [address] [place] [address] Pattern Checker: Lakhwinder Tim MD Basophils/100 WBC (Bld) 0 % Normal 0-2 [facility] Comment on above: Performed By: #### C P, LIP, CDP #### [facility] [address] [place] [address] [place] [address] Pattern Checker: Lakhwinder Tim MD Eosinophils (Bld) [#/Vol] 0.13 10*3/uL Normal 0.00-0.44 [facility] Comment on above: Performed By: #### C P, LIP, CDP #### [address] [place], [place] [phone] Pattern Checker: Lakhwinder Tim MD Eosinophils/100 WBC (Bld) 2 % Normal 1-4 [facility] Comment on above: Performed By: #### C P, LIP, CDP #### [address] [place] [address] Pattern Checker: Lakhwinder Tim MD Erythrocyte distribution width (RBC) [Ratio] 14.9 % High 11.8-14.4 [facility] Comment on above: Performed By: #### C P, LIP, CDP #### [address] [place], [facility]83 Pattern Checker: Lakhwinder Tim MD Hematocrit (Bld) [Volume fraction] 33.2 % Low 36.3-47.1 [facility] Comment on above: Performed By: #### C P, LIP, CDP #### [address] [place], [place] 6270383 Pattern Checker: Lakhwinder Tim MD Hemoglobin (Bld) [Mass/Vol] 10.8 g/dL Low 11.9-15.1 [facility] Comment on above: Performed By: #### C P, LIP, CDP #### [address] [place] [address] Pattern Checker: Lakhwinder Tim MD Immature granulocytes/100 WBC (Bld) 0 % Normal 0 [facility] Comment on above: Performed By: #### C P, LIP, CDP #### [address] [place], [place] [id number] Pattern Checker: Lakhwinder Tim MD Lymphocytes (Bld) [#/Vol] 3.20 10*3/uL Normal 1.10-3.70 [facility] Comment on above: Performed By: #### C P, LIP, CDP #### [address] [place], [place] 3953983 Pattern Checker: Lakhwinder Tim MD Lymphocytes/100 WBC (Bld) 48 % High 24-43 [facility] Comment on above: Performed By: #### C P, LIP, CDP #### [address] [place], [place] 2575583 Pattern Checker: Lakhwinder Tim MD MCH (RBC) [Entitic mass] 27.8 pg Normal 25.2-33.5 [facility] Comment on above: Performed By: #### C P, LIP, CDP #### [address] [place], [place] [id number] Pattern Checker: Lakhwinder Tim MD MCHC (RBC) [Mass/Vol] 32.5 g/dL Normal 28.4-34.[address] [facility] Comment on above: Performed By: #### C P, LIP, CDP #### [address] [place], [place] 0853583 Pattern Checker: Lakhwinder Tim MD MCV (RBC) [Entitic vol] 85.6 fL Normal 82.6-102.9 [facility] Comment on above: Performed By: #### C P, LIP, CDP #### [address] [place], [place] 2565783 Pattern Checker: Lakhwinder Tim MD Monocytes (Bld) [#/Vol] 0.63 10*3/uL Normal 0.10-1.20 [facility] Comment on above: Performed By: #### C P, LIP, CDP #### [address] [place], [place] [id number] Pattern Checker: Lakhwinder Tim MD Monocytes/100 WBC (Bld) 9 % Normal 3-12 [facility] Comment on above: Performed By: #### C P, LIP, CDP #### [facility] [address] [place], [place] [address] Pattern Checker: Lakhwinder Tim MD Neutrophil (Seg) 41 % Normal 36-65 [facility] Comment on above: Performed By: #### C P, LIP, CDP #### [facility] [address] [place], [facility]83 Pattern Checker: Lakhwinder Tim MD NRBC Automated 0.0 per 100 WBC Normal 0.0 [facility] Comment on above: Performed By: #### C P, LIP, CDP #### [facility] [address] [place], [facility]83 Pattern Checker: Lakhwinder Tim MD Platelet mean volume (Bld) [Entitic vol] 9.8 fL Normal 8.1-13.5 [facility] Comment on above: Performed By: #### C P, LIP, CDP #### [address] [place] [address] Pattern Checker: Lakhwinder Tim MD Platelets (Bld) [#/Vol] 275 10*3/uL Normal 138-453 [facility] Comment on above: Performed By: #### C P, LIP, CDP #### [address] [place], [place] [address] Pattern Checker: Lakhwinder Tim MD RBC (Bld) [#/Vol] 3.88 10*6/uL Low 3.95-5.11 [facility] Comment on above: Performed By: #### C P, LIP, CDP #### [facility] [address] [place], [place] 8459583 Pattern Checker: Lakhwinder Tim MD WBC (Bld) [#/Vol] 6.8 10*3/uL Normal 3.5-11.3 [facility] Comment on above: Performed By: #### C TOM Mckeon CDP #### [facility] [address] [place] [address] Pattern Checker: Lakhwinder Tim MD CT ABDOMEN PELVIS W IV CONTR Marichuy 02-03-2024 CT ABDOMEN PELVIS W IV CONTRAST EXAMINATION: CT OF THE ABDOMEN AND PELVIS WITH CONTRAST 02/03/2024 9:42 pm TECHNIQUE: CT of the abdomen and pelvis was performed with the administration of intravenous contrast. Multiplanar reformatted images are provided for review. Automated exposure control, iterative reconstruction, and/or weight based adjustment of the mA/kV was utilized to reduce the radiation dose to as low as reasonably achievable. COMPARISON: CT abdomen and pelvis November 26, 2023 HISTORY: ORDERING SYSTEM PROVIDED HISTORY: Lower abdominal pain x 2 days. History of pelvic abscess 2 weeks ago s/p partial hysterectomy 2 months ago TECHNOLOGIST PROVIDED HISTORY: Lower abdominal pain x 2 days. History of pelvic abscess 2 weeks ago s/p partial hysterectomy 2 months ago Decision Support Exception - unselect if not a suspected or confirmed emergency medical condition->Emergency Medical Condition (MA) FINDINGS: Lower Chest: Normal. Organs: The abdominal wall appears normal. The liver, spleen, pancreas, and adrenals appear normal. Gallbladder normal. Kidneys appear normal. The bladder appears normal. GI/Bowel: The stomach,small bowel, and colon appear normal. Appendix normal. Pelvis: New multiloculated right adnexal cystic lesion measures 48 x 23 mm. Stranding suggests acute inflammation. Peritoneum/Retroperitoneu m: The abdominal aorta and iliac arteries are normal in caliber. There is no pathologic adenopathy. Bones/Soft Tissues: Normal IMPRESSION: Multiloculated right adnexal cystic mass with inflammatory change. Recommend pelvic ultrasound. Interpreted by: Tres Barillas MD Signed by: Tres Barillas MD 02/03/24 Final result Normal [facility] CT Abdomen and Pelvis W cont rast Alexsander 02-03-2024 Multiloculated right adnexal cystic mass with inflammatory change. Recommend pelvic ultrasound. [facility] RIS CONSOLIDATED EXAMINATION: CT OF THE ABDOMEN AND PELVIS WITH CONTRAST 02/03/2024 9:42 pm TECHNIQUE: CT of the abdomen and pelvis was performed with the administration of intravenous contrast. Multiplanar reformatted images are provided for review. Automated exposure control, iterative reconstruction, and/or weight based adjustment of the mA/kV was utilized to reduce the radiation dose to as low as reasonably achievable. COMPARISON: CT abdomen and pelvis November 26, 2023 HISTORY: ORDERING SYSTEM PROVIDED HISTORY: Lower abdominal pain x 2 days. History of pelvic abscess 2 weeks ago s/p partial hysterectomy 2 months ago TECHNOLOGIST PROVIDED HISTORY: Lower abdominal pain x 2 days. History of pelvic abscess 2 weeks ago s/p partial hysterectomy 2 months ago Decision Support Exception - unselect if not a suspected or confirmed emergency medical condition->Emergency Medical Condition (MA) FINDINGS: Lower Chest: Normal. Organs: The abdominal wall appears normal. The liver, spleen, pancreas, and adrenals appear normal. Gallbladder normal. Kidneys appear normal. The bladder appears normal. GI/Bowel: The stomach,small bowel, and colon appear normal. Appendix normal. Pelvis: New multiloculated right adnexal cystic lesion measures 48 x 23 mm. Stranding suggests acute inflammation. Peritoneum/Retroperitoneu m: The abdominal aorta and iliac arteries are normal in caliber. There is no pathologic adenopathy. Bones/Soft Tissues: Normal [facility] RIS CONSOLIDATED Tres Barillas MD - 02/03/2024 EXAMINATION: CT OF THE ABDOMEN AND PELVIS WITH CONTRAST 02/03/2024 9:42 pm TECHNIQUE: CT of the abdomen and pelvis was performed with the administration of intravenous contrast. Multiplanar reformatted images are provided for review. Automated exposure control, iterative reconstruction, and/or weight based adjustment of the mA/kV was utilized to reduce the radiation dose to as low as reasonably achievable. COMPARISON: CT abdomen and pelvis November 26, 2023 HISTORY: ORDERING SYSTEM PROVIDED HISTORY: Lower abdominal pain x 2 days. History of pelvic abscess 2 weeks ago s/p partial hysterectomy 2 months ago TECHNOLOGIST PROVIDED HISTORY: Lower abdominal pain x 2 days. History of pelvic abscess 2 weeks ago s/p partial hysterectomy 2 months ago Decision Support Exception - unselect if not a suspected or confirmed emergency medical condition->Emergency Medical Condition (MA) FINDINGS: Lower Chest: Normal. Organs: The abdominal wall appears normal. The liver, spleen, pancreas, and adrenals appear normal. Gallbladder normal. Kidneys appear normal. The bladder appears normal. GI/Bowel: The stomach,small bowel, and colon appear normal. Appendix normal. Pelvis: New multiloculated right adnexal cystic lesion measures 48 x 23 mm. Stranding suggests acute inflammation. Peritoneum/Retroperitoneu m: The abdominal aorta and iliac arteries are normal in caliber. There is no pathologic adenopathy. Bones/Soft Tissues: Normal IMPRESSION: Multiloculated right adnexal cystic mass with inflammatory change. Recommend pelvic ultrasound. [facility] Radiology Study observation (narrative) [facility] CT Abdomen and Pelvis W cont rast IVOrdered By: Tres Barillas on 02-03-2024 [facility] Work Phone: Comp Metabolic Profon 2023 Albumin [Mass/Vol] 4.1 g/dL Normal 3.5-5.2 [facility] Comment on above: Performed By: #### C P, LIP, CDP #### [facility] [address] [place] [address] [place] [address] Pattern Checker: Lakhwinder Tim MD Albumin/Glob Ratio 1.1 Normal 1.0-2.5 [facility] Comment on above: Performed By: #### C P, LIP, CDP #### [facility] [address] [place], [place] [id number] Pattern Checker: Lakhwinder Tim MD Alkaline Phos 64 U/L Normal 35-104 [facility] Comment on above: Performed By: #### C P, LIP, CDP #### [facility] [address] [place], [place] [id number] Pattern Checker: Lakhwinder Tim MD ALT [Catalytic activity/Vol] 7 U/L Normal 5-33 [facility] Comment on above: Performed By: #### C P, LIP, CDP #### [facility] [address] [place] [address] Pattern Checker: Lakhwinder Tim MD Anion gap [Moles/Vol] 11 mmol/L Normal 9-[address] [facility] Comment on above: Performed By: #### C P, LIP, CDP #### [facility] [address] [place], [place] 9084283 Pattern Checker: Lakhwinder Tim MD AST [Catalytic activity/Vol] 12 U/L Normal <32 [facility] Comment on above: Performed By: #### C P, LIP, CDP #### [facility] [address] [place], [place] [id number] Pattern Checker: Lakhwinder Tim MD Bilirubin [Mass/Vol] 0.2 mg/dL Low 0.3-1.2 [facility] Comment on above: Performed By: #### C P, LIP, CDP #### [facility] [address] [place], [place] 7361283 Pattern Checker: Lakhwinder Tim MD BUN/CRE Ratio 20 Normal 9-20 [facility] Comment on above: Performed By: #### C P, LIP, CDP #### [facility] [address] [place] [address] [place]. [place], [place] [id number] Pattern Checker: Lakhwinder Tim MD Calcium [Mass/Vol] 8.9 mg/dL Normal 8.6-10.4 [facility] Comment on above: Performed By: #### C P, LIP, CDP #### [facility] [address] [place] [address] [address] [place], [place] [id number] Pattern Checker: Lakhwinder Tim MD Chloride [Moles/Vol] 99 mmol/L Normal 98-107 [facility] Comment on above: Performed By: #### C P, LIP, CDP #### [facility] [address] [place], [place] 1323683 Pattern Checker: Lakhwinder Tim MD CO2 [Moles/Vol] 28 mmol/L Normal 20-31 [facility] Comment on above: Performed By: #### C P, LIP, CDP #### [facility] [address] [place], [place] 2285483 Pattern Checker: Lakhwinder Tim MD Creatinine [Mass/Vol] 0.6 mg/dL Normal 0.5-0.[address] [facility] Comment on above: Performed By: #### C P, LIP, CDP #### [address] [place] [address] Pattern Checker: Lakhwinder Tim MD GFR/1.73 sq M.predicted among non-blacks MDRD (S/P/Bld) [Vol rate/Area] mL/min/{1.73_m2} Normal >60 [facility] Comment on above: Result Comment: These results are not intended for use in patients <18 years of age. eGFR results are calculated without a race factor using the 2020 CKD-EPI equation. Careful clinical correlation is recommended, particularly when comparing to results calculated using previous equations. The CKD-EPI equation is less accurate in patients with extremes of muscle mass, extra-renal metabolism of creatine, excessive creatine ingestion, or following therapy that affects renal tubular secretion. Performed By: #### C P, LIP, CDP #### [address] [place] [address] Pattern Checker: Lakhwinder Tim MD Glucose [Mass/Vol] 86 mg/dL Normal 70-99 [facility] Comment on above: Performed By: #### C P LIP, CDP #### [address] [place] [address] Pattern Checker: Lakhwinder Tim MD Potassium [Moles/Vol] 3.8 mmol/L Normal 3.7-5.[address] [facility] Comment on above: Performed By: #### C P, LIP, CDP #### [address] [place] [address] Pattern Checker: Lakhwinder Tim MD Protein [Mass/Vol] 7.8 g/dL Normal 6.4-8.3 [facility] Comment on above: Performed By: #### C P, LIP, CDP #### [address] [place] [address] Pattern Checker: Lakhwinder Tim MD Sodium [Moles/Vol] 138 mmol/L Normal 135-144 [facility] Comment on above: Performed By: #### C TOM Mckeon CDP #### [facility] [address] [place] [address] Pattern Checker: Lakhwinder Tim MD Urea nitrogen [Mass/Vol] 12 mg/dL Normal 6-20 [facility] Comment on above: Performed By: #### C TOM Mckeon, CDP #### [facility] [address] [place] [address] Pattern Checker: Lakhwinder Tim MD Comprehensive Metabolic Pane [facility] 02-03-2024 Albumin [Mass/Vol] 4.1 g/dL 3.5 - 5.2 g/dL [facility] Albumin/Globulin [Mass ratio] 1.1 {ratio} 1.0 - 2.5 [facility] ALP [Catalytic activity/Vol] 64 U/L 35 - 104 U/L [facility] ALT [Catalytic activity/Vol] 7 U/L 5 - 33 U/L [facility] Anion gap [Moles/Vol] 11 mmol/L 9 - 17 mmol/L [facility] AST [Catalytic activity/Vol] 12 U/L NINF - 32 U/L [facility] Bilirubin [Mass/Vol] 0.2 mg/dL Low 0.3 - 1 .2 mg/dL [facility] Calcium [Mass/Vol] 8.9 mg/dL 8.6 - 10. 4 mg/dL [facility] Chloride [Moles/Vol] 99 mmol/L 98 - 10 7 mmol/L [facility] CO2 [Moles/Vol] 28 mmol/L 20 - 31 mmol/L [facility] Creatinine [Mass/Vol] 0.6 mg/dL 0.5 - 0.9 mg/dL [facility] Est, Glom Filt Rate - [facility] Comment on above: These results are not intended for use in patients <18 years of age. eGFR results are calculated without a race factor using the 2020 CKD-EPI equation. Careful clinical correlation is recommended, particularly when comparing to results calculated using previous equations. The CKD-EPI equation is less accurate in patients with extremes of muscle mass, extra-renal metabolism of creatine, excessive creatine ingestion, or following therapy that affects renal tubular secretion. Glucose [Mass/Vol] 86 mg/dL 70 - 99 mg/dL [facility] Interpretation and review of laboratory results Abnormal [facility] Potassium [Moles/Vol] 3.8 mmol/L 3.7 - 5.3 mmol/L [facility] Protein [Mass/Vol] 7.8 g/dL 6.4 - 8.3 g/dL [facility] Sodium [Moles/Vol] 138 mmol/L 135 - 144 mmol/L [facility] Urea nitrogen [Mass/Vol] 12 mg/dL 6 - 20 mg/dL [facility] Urea nitrogen/Creatinine [Mass ratio] 20 mg/mg 9 - 20 [facility] HCG, ,Urineon 02-02 Beta HCG ( test) Ql (U) Negative Normal NEG [facility] Comment on above: Result Comment: Spec imens with hCG levels near the threshold of the test (25 mIU/mL) may give a negative or indeterminate result. In such cases, another test should be performed with a new specimen in 48-72 hours. If early is suspected clinically in this setting, correlation with quantitative serum b-hCG level is suggested. [facility] has confirmed the use of plasma for this test. This has not been cleared or approved by the U.S. Food and Drug Administration. The FDA has determined that such clearance is not necessary. Performed By: #### C P, LIP, CDP #### [facility] [address] [place] [address] Pattern Checker: Lakhwinder Tim MD Lactic Acidon 02-03-2024 Lactate (BldV) [Moles/Vol] 1.0 mmol/L 0.5 - 2.2 mmol/L [facility] Lactate [Moles/Vol] 1.0 mmol/L Normal 0.5-2.2 [facility] Comment on above: Performed By: #### L ACTIC #### [facility] [address] [place] [address] Pattern Checker: Lakhwinder Tim MD Lipaseon 02-03-2024 Lipase [Catalytic activity/Vol] 29 U/L 13 - 60 U/L [facility] Lipase [Catalytic activity/Vol] 29 U/L Normal -60 [facility] Comment on above: Performed By: #### C P, LIP, CDP #### [facility] [address] [place] [address] Pattern Checker: Lakhwinder Tim MD No Panel Informationon 02-02 [facility] , Urineon HCG ( test) Ql (U) Negative NEGATIVE [facility] Comment on above: Specimens with hCG l evels near the threshold of the test (25 mIU/mL) may give a negative or indeterminate result. In such cases, another test should be performed with a new specimen in 48-72 hours. If early is suspected clinically in this setting, correlation with quantitative serum b-hCG level is suggested. [facility] has confirmed the use of plasma for this test. This has not been cleared or approved by the U.S. Food and Drug Administration. The FDA has determined that such clearance is not necessary. [facility] Urinalysis w/ Microon 2023 Bacteria TRACE Abnormal NONE [facility] Comment on above: Performed By: #### C P, LIP, CDP #### [facility] [address] [place] [address] Pattern Checker: Lakhwinder Tim MD Bilirubin, SemiQt,Ur Negative Normal NEG [facility] Comment on above: Performed By: #### C P, LIP, CDP #### [facility] [address] [place] [address] Pattern Checker: Lakhwinder Tim MD Blood, Urine Negative Normal NEG [facility] Comment on above: Performed By: #### C P, LIP, CDP #### [facility] [address] [place] [address] Pattern Checker: Lakhwinder Tim MD Clarity (U) Clear Normal CLEAR [facility] Comment on above: Performed By: #### C P, LIP, CDP #### [facility] [address] [place], [place] [id number] Pattern Checker: Lakhwinder Tim MD Color (U) Yellow Normal YEL [facility] Comment on above: Performed By: #### C P, LIP, CDP #### [facility] [address] [place] [address] [place] [place], [place] [id number] Pattern Checker: Lakhwinder Tim MD Epithelial cells LM Ql (Urine sed) 2 TO 5 Normal 0-25 [facility] Comment on above: Performed By: #### C P, LIP, CDP #### [facility] [address] [place] [address] Dr[address] [place], [place] [id number] Pattern Checker: Lakhwinder Tim MD Glucose Ql (U) Negative Normal NEG [facility] Comment on above: Performed By: #### C P, LIP, CDP #### [facility] [address] [place] [address] Dr[address] [place], [place] [id number] Pattern Checker: Lakhwinder Tim MD Ketones Ql (U) Negative Normal NEG [facility] Comment on above: Performed By: #### C P, LIP, CDP #### [facility] [address] [place] [address] [place] [address] Pattern Checker: Lakhwinder Tim MD Leukocyte esterase Test strip Ql (U) Negative Normal NEG [facility] Comment on above: Performed By: #### C P, LIP, CDP #### [facility] [address] [place] [address] [place], [place] [id number] Pattern Checker: Lakhwinder Tim MD Mucus Strands 2+ Abnormal NONE [facility] Comment on above: Performed By: #### C P, LIP, CDP #### [facility] [address] [place], [place] 9421683 Pattern Checker: Lakhwinder Tim MD Nitrite,Ur Negative Normal NEG [facility] Comment on above: Performed By: #### C P, LIP, CDP #### [facility] [address] [place] [address] [place] [address] Pattern Checker: Lakhwinder Tim MD PH,Ur 6.0 Normal 5.0-9.0 [facility] Comment on above: Performed By: #### C P, LIP, CDP #### [facility] [address] [place] [address] [place] [id number] Pattern Checker: Lakhwinder Tim MD Protein Ql (U) Negative Normal NEG [facility] Comment on above: Performed By: #### C P, LIP, CDP #### [address] [place], [place] 618[address]83 Pattern Checker: Lakhwinder Tim MD Spec. Fackler,Ur >1.030 High 1.010-1.020 [facility] Comment on above: Performed By: #### C P, LIP, CDP #### [address] [place], [place] [id number] Pattern Checker: Lakhwinder Tim MD Urine RBC's 0 TO 2 Normal 0-2 [facility] Comment on above: Performed By: #### C P, LIP, CDP #### [address] [place], [facility] Pattern Checker: Lakhwinder Tim MD Urine WBC's 0 TO 2 Normal 0-5 [facility] Comment on above: Performed By: #### C P, LIP, CDP #### [facility] [address] [place] [address] [place] [id number] Pattern Checker: Lakhwinder Tim MD Urobilinogen,Ur Normal Normal 0.0-1.0 [facility] Comment on above: Performed By: #### C P, LIP, CDP #### [address] [place] [address] Pattern Checker: Lakhwinder Tim MD Urinalysis with Microscopico n 02-03-2024 Bacteria LM Ql (Urine sed) TRACE Abnormal None [facility] Bilirubin Ql (U) Negative NEGATIVE [facility] Clarity (U) Clear Clear [facility] Color (U) Yellow Yellow [facility] Epithelial cells LM.HPF (Urine sed) [#/Area] 2 TO 5 [facility] Glucose Test strip (U) [Mass/Vol] Negative NEGATIVE mg/dL [facility] Hemoglobin Auto test strip Ql (U) Negative NEGATIVE [facility] Interpretation and review of laboratory results Abnormal [facility] Ketones (U) [Mass/Vol] Negative NEGATIVE mg/dL [facility] Leukocyte esterase Test strip Ql (U) Negative NEGATIVE [facility] Mucus Ql (Urine sed) 2+ Abnormal None [facility] Nitrite Ql (U) Negative NEGATIVE [facility] pH (U) 6.0 [pH] 5.0 - 9.0 [facility] Protein (U) [Mass/Vol] Negative NEGATIVE mg/dL [facility] RBC LM.HPF (Urine sed) [#/Area] 0 TO 2 [facility] Specific gravity (U) [Rel density] High 1.010 - 1.020 [facility] Urobilinogen Qn (U) Normal 0.0 - 1. 0 EU/dL [facility] WBC LM.HPF (Urine sed) [#/Area] 0 TO 2 [facility] CBC AND AUTO DIFFon 01-17-20 24 ABSOLUTE BASOPHIL 0.0 X10E9/L Normal 0.0-0.2 [facility] Comment on above: Performed By: #### 2 823-3 #### [facility] ([id number]) [address], [address] [place] [address] ABSOLUTE NEUTROPHIL 7.1 X10E9/L High 1.5-6.6 [facility] Comment on above: Performed By: #### 2 823-3 #### [facility] ([id number]) [address], [address] [place] [address] Basophils/100 WBC (Bld) 0.2 % Normal [facility] Comment on above: Performed By: #### 2 823-3 #### [facility] ([id number]) [address], [address] [place] [address] Eosinophils (Bld) [#/Vol] 0.1 10*3/uL Normal 0.0-0.4 [facility] Comment on above: Performed By: #### 2 823-3 #### [facility] ([id number]) [address], [address] [place] [address] Eosinophils/100 WBC (Bld) 1.4 % Normal [facility] Comment on above: Performed By: #### 2 823-3 #### [facility] ([id number]) [address], [address] [place] [address] Erythrocyte distribution width (RBC) [Ratio] 15.3 % High 11.5-15.0 [facility] Comment on above: Performed By: #### 2 823-3 #### [facility] ([id number]) [address], [address] [place] [address] Hematocrit (Bld) [Volume fraction] 30.6 % Low 35-47 [facility] Comment on above: Performed By: #### 2 823-3 #### [facility] ([id number]) [address], [address] [place] [address] Hemoglobin (Bld) [Mass/Vol] 10.1 g/dL Low 11.7-15.5 [facility] Comment on above: Performed By: #### 2 823-3 #### [facility] ([id number]) [address], [address] [place] [address] Lymphocytes (Bld) [#/Vol] 1.8 10*3/uL Normal 1.0-3.5 [facility] Comment on above: Performed By: #### 2 823-3 #### [facility] ([id number]) [address], [address] [place] [address] Lymphocytes/100 WBC (Bld) 18.1 % Normal [facility] Comment on above: Performed By: #### 2 823-3 #### [facility] ([id number]) [address], [address] [place] [address] MCH (RBC) [Entitic mass] 27.7 pg Normal 27-34 [facility] Comment on above: Performed By: #### 2 823-3 #### [facility] ([id number]) [address], [address] [place] [address] MCHC (RBC) [Mass/Vol] 32.9 g/dL Normal 32-36 [facility] Comment on above: Performed By: #### 2 823-3 #### [facility] ([id number]) [address], [address] [place] [address] MCV (RBC) [Entitic vol] 84 fL Normal 80-100 [facility] Comment on above: Performed By: #### 2 823-3 #### [facility] ([id number]) [address], [address] [place] [address] Monocytes (Bld) [#/Vol] 1.0 10*3/uL High 0-0.9 [facility] Comment on above: Performed By: #### 2 823-3 #### [facility] ([id number]) [address], [address] [place] [address] Monocytes/100 WBC (Bld) 9.6 % Normal [facility] Comment on above: Performed By: #### 2 823-3 #### [facility] ([id number]) [address], [address] [place] [address] Neutrophils/100 WBC (Bld) 70.7 % Normal [facility] Comment on above: Performed By: #### 2 823-3 #### [facility] ([id number]) [address], [address] [place] [address] Platelet mean volume (Bld) [Entitic vol] 7.8 fL Normal 7-12 [facility] Comment on above: Performed By: #### 2 823-3 #### [facility] ([id number]) [address] [place] [address] Platelets (Bld) [#/Vol] 404 10*3/uL Normal 150-450 [facility] Comment on above: Performed By: #### 2 823-3 #### [facility] ([id number]) [address], [address] [place] [address] RBC COUNT 3.64 X10E12/L Low 3.80-5.20 [facility] Comment on above: Performed By: #### 2 823-3 #### [facility] ([id number]) [address], [address] [place] [address] WBC (Bld) [#/Vol] 10.1 10*3/uL Normal 4.0-11.0 [facility] Comment on above: Performed By: #### 2 823-3 #### [facility] ([id number]) [address], [address] [place] [address] COMPREHENSIVE METABOLIC PANE Blaine 01-17-2024 Albumin [Mass/Vol] 3.0 g/dL Low 3.2-5.3 [facility] Comment on above: Performed By: #### 2 823-3 #### [facility] ([id number]) [address], [address] [place] [address] ALP [Catalytic activity/Vol] 76 U/L Normal 39-130 [facility] Comment on above: Performed By: #### 2 823-3 #### [facility] ([id number]) [address], [address] [place] [address] ALT [Catalytic activity/Vol] 10 U/L Normal 0-31 [facility] Comment on above: Performed By: #### 2 823-3 #### [facility] ([id number]) [address] [place] [address] Anion gap [Moles/Vol] 9 mmol/L Normal 5-15 [facility] Comment on above: Performed By: #### 2 823-3 #### [facility] ([id number]) [address], [address] [place] [address] AST [Catalytic activity/Vol] 10 U/L Normal 0-41 [facility] Comment on above: Performed By: #### 2 823-3 #### [facility] ([id number]) [address] [place] [address] Bilirubin [Mass/Vol] 0.2 mg/dL Low 0.3-1.2 [facility] Comment on above: Performed By: #### 2 823-3 #### [facility] ([id number]) [address] [place] [address] Calcium [Mass/Vol] 8.6 mg/dL Normal 8.5-10.5 [facility] Comment on above: Performed By: #### 2 823-3 #### [facility] ([id number]) [address], [address] [place] [address] Chloride [Moles/Vol] 99 mmol/L Normal 98-109 [facility] Comment on above: Performed By: #### 2 823-3 #### [facility] ([id number]) [address], [address] [place] [address] CO2 [Moles/Vol] 28 mmol/L Normal 22-32 [facility] Comment on above: Performed By: #### 2 823-3 #### [facility] ([id number]) [address], [address] [place] [address] Creatinine [Mass/Vol] 0.44 mg/dL Normal 0.40-1.00 [facility] Comment on above: Result Comment: METH OD TRACEABLE TO IDMS STANDARD Performed By: #### 2 823-3 #### [facility] ([id number]) [address] [address] [place] [address] eGFR (CKD-EPI) NON-RACE DEPENDENT >90 Normal >59 [facility] Comment on above: Result Comment: Reported eGFR is based on the CKD-EPI 2020 equation that does not use a race coefficient. Performed By: #### 2 823-3 #### [facility] ([id number]) [address], [address] [place] [address] Glucose [Mass/Vol] 87 mg/dL Normal 65-99 [facility] Comment on above: Performed By: #### 2 823-3 #### [facility] ([id number]) [address], [address] [place] [address] Potassium [Moles/Vol] 3.9 mmol/L Normal 3.5-5.0 [facility] Comment on above: Performed By: #### 2 823-3 #### [facility] ([id number]) [address], [facility] [address] [place] [address] Protein [Mass/Vol] 6.3 g/dL Normal 6.0-8.0 [facility] Comment on above: Performed By: #### 2 823-3 #### [facility] ([id number]) [address], [address] [place] [address] Sodium [Moles/Vol] 136 mmol/L Normal 134-146 [facility] Comment on above: Performed By: #### 2 823-3 #### [facility] ([id number]) [address] [place] [address] Urea nitrogen [Mass/Vol] 5 mg/dL Normal 5-23 [facility] Comment on above: Performed By: #### 2 823-3 #### [facility] ([id number]) [address] [place] [address] CBC AND AUTO DIFFon 01-16-20 24 ABSOLUTE BASOPHIL 0.0 X10E9/L Normal 0.0-0.2 [facility] Comment on above: Performed By: #### 2 823-3 #### [facility] ([id number]) [address], [facility] [address] [place] [address] ABSOLUTE NEUTROPHIL 8.2 X10E9/L High 1.5-6.6 [facility] Comment on above: Performed By: #### 2 823-3 #### [facility] ([id number]) [address] [place] [address] Basophils/100 WBC (Bld) 0.2 % Normal [facility] Comment on above: Performed By: #### 2 823-3 #### [facility] ([id number]) [address], [address] [place] [address] Eosinophils (Bld) [#/Vol] 0.0 10*3/uL Normal 0.0-0.4 [facility] Comment on above: Performed By: #### 2 823-3 #### [facility] ([id number]) [address] [place] [address] Eosinophils/100 WBC (Bld) 0.1 % Normal [facility] Comment on above: Performed By: #### 2 823-3 #### [facility] ([id number]) [address], [address] [place] [address] Erythrocyte distribution width (RBC) [Ratio] 15.3 % High 11.5-15.0 [facility] Comment on above: Performed By: #### 2 823-3 #### [facility] ([id number]) [address], [address] [place] [address] Hematocrit (Bld) [Volume fraction] 31.5 % Low 35-47 [facility] Comment on above: Performed By: #### 2 823-3 #### [facility] ([id number]) [address], [address] [place] [address] Hemoglobin (Bld) [Mass/Vol] 10.5 g/dL Low 11.7-15.5 [facility] Comment on above: Performed By: #### 2 823-3 #### [facility] ([id number]) [address] [place] [address] Lymphocytes (Bld) [#/Vol] 1.2 10*3/uL Normal 1.0-3.5 [facility] Comment on above: Performed By: #### 2 823-3 #### [facility] ([id number]) [address] [place] [address] Lymphocytes/100 WBC (Bld) 12.0 % Normal [facility] Comment on above: Performed By: #### 2 823-3 #### [facility] ([id number]) [address], [address] [place] [address] MCH (RBC) [Entitic mass] 28.0 pg Normal 27-34 [facility] Comment on above: Performed By: #### 2 823-3 #### [facility] ([id number]) [address], [address] [place] [address] MCHC (RBC) [Mass/Vol] 33.3 g/dL Normal 32-36 [facility] Comment on above: Performed By: #### 2 823-3 #### [facility] ([id number]) [address] [place] [address] MCV (RBC) [Entitic vol] 84 fL Normal 80-100 [facility] Comment on above: Performed By: #### 2 823-3 #### [facility] ([id number]) [address] [place] [address] Monocytes (Bld) [#/Vol] 0.7 10*3/uL Normal 0-0.9 [facility] Comment on above: Performed By: #### 2 823-3 #### [facility] ([id number]) [address] [place] [address] Monocytes/100 WBC (Bld) 6.5 % Normal [facility] Comment on above: Performed By: #### 2 823-3 #### [facility] ([id number]) [address] [place] [address] Neutrophils/100 WBC (Bld) 81.2 % Normal [facility] Comment on above: Performed By: #### 2 823-3 #### [facility] ([id number]) [address] [place] [address] Platelet mean volume (Bld) [Entitic vol] 8.8 fL Normal 7-12 [facility] Comment on above: Performed By: #### 2 823-3 #### [facility] ([id number]) [address], [address] [place] [address] Platelets (Bld) [#/Vol] 341 10*3/uL Normal 150-450 [facility] Comment on above: Performed By: #### 2 823-3 #### [facility] ([id number]) [address], [address] [place] [address] RBC COUNT 3.75 X10E12/L Low 3.80-5.20 [facility] Comment on above: Performed By: #### 2 823-3 #### [facility] ([id number]) [address], [address] [place] [address] WBC (Bld) [#/Vol] 10.1 10*3/uL Normal 4.0-11.0 [facility] Comment on above: Performed By: #### 2 823-3 #### [facility] ([id number]) [address] [place] [address] COMPREHENSIVE METABOLIC PANE Blaine 01-16-2024 Albumin [Mass/Vol] 3.2 g/dL Normal 3.2-5.3 [facility] Comment on above: Performed By: #### 2 823-3 #### [facility] ([id number]) [address] [place] [address] ALP [Catalytic activity/Vol] 95 U/L Normal 39-130 [facility] Comment on above: Performed By: #### 2 823-3 #### [facility] ([id number]) [address], [address] [place] [address] ALT [Catalytic activity/Vol] 12 U/L Normal 0-31 [facility] Comment on above: Performed By: #### 2 823-3 #### [facility] ([id number]) [address], [address] [place] [address] Anion gap [Moles/Vol] 14 mmol/L Normal 5-15 [facility] Comment on above: Performed By: #### 2 823-3 #### [facility] [facility] ([id number]) [address], [address] [place] [address] AST [Catalytic activity/Vol] 9 U/L Normal 0-41 [facility] Comment on above: Performed By: #### 2 823-3 #### [facility] ([id number]) [address], [address] [place] [address] Bilirubin [Mass/Vol] 0.3 mg/dL Normal 0.3-1.2 [facility] Comment on above: Performed By: #### 2 823-3 #### [facility] ([id number]) [address], [address] [place] [address] Calcium [Mass/Vol] 8.9 mg/dL Normal 8.5-10.5 [facility] Comment on above: Performed By: #### 2 823-3 #### [facility] ([id number]) [address], [address] [place] [address] Chloride [Moles/Vol] 98 mmol/L Normal 98-109 [facility] Comment on above: Performed By: #### 2 823-3 #### [facility] ([id number]) [address], [address] [place] [address] CO2 [Moles/Vol] 24 mmol/L Normal 22-32 [facility] Comment on above: Performed By: #### 2 823-3 #### [facility] ([id number]) [address], [address] [place] [address] Creatinine [Mass/Vol] 0.35 mg/dL Low 0.40-1.00 [facility] Comment on above: Result Comment: METH OD TRACEABLE TO IDMS STANDARD Performed By: #### 2 823-3 #### [facility] ([id number]) [address], [address] [place] [address] eGFR (CKD-EPI) NON-RACE DEPENDENT >90 Normal >59 [facility] Comment on above: Result Comment: Reported eGFR is based on the CKD-EPI 2020 equation that does not use a race coefficient. Performed By: #### 2 823-3 #### [facility] ([id number]) [address], [address] [place] [address] Glucose [Mass/Vol] 82 mg/dL Normal 65-99 [facility] Comment on above: Performed By: #### 2 823-3 #### [facility] ([id number]) [address], [address] [place] [address] Potassium [Moles/Vol] 3.7 mmol/L Normal 3.5-5.0 [facility] Comment on above: Performed By: #### 2 823-3 #### [facility] ([id number]) [address], [address] [place] [address] Protein [Mass/Vol] 7.0 g/dL Normal 6.0-8.0 [facility] Comment on above: Performed By: #### 2 823-3 #### [facility] ([id number]) [address], [address] [place] [address] Sodium [Moles/Vol] 136 mmol/L Normal 134-146 [facility] Comment on above: Performed By: #### 2 823-3 #### [facility] ([id number]) [address], [address] [place] [address] Urea nitrogen [Mass/Vol] 5 mg/dL Normal 5-23 [facility] Comment on above: Performed By: #### 2 823-3 #### [facility] ([id number]) [address], [address] [place] [address] MAGNESIUMon 01-16-2024 Magnesium [Mass/Vol] 1.8 mg/dL Normal 1.8-2.6 [facility] Comment on above: Performed By: #### 2 823-3 #### [facility] ([id number]) [address], [address] [place] [address] PHOSPHORUSon 01-16-2024 Phosphate [Mass/Vol] 3.3 mg/dL Normal 2.4-4.9 [facility] Comment on above: Performed By: #### 2 823-3 #### [facility] ([id number]) [address], [address] [place] [address] POTASSIUMon 01-16-2024 Potassium [Moles/Vol] 3.5 mmol/L Normal 3.5-5.0 [facility] Comment on above: Performed By: #### 2 823-3 #### [facility] ([id number]) [address], [address] [place] [address] Potassium [Moles/Vol] 3.8 mmol/L Normal 3.5-5.0 [facility] Comment on above: Performed By: #### C RT #### [facility] ([id number]) [address], [address] [place] [address] ANAEROBE CULTUREon 4 Bacteria identified Anaer cx Nom (Unsp spec) CULTURE RESULTS NO GROWTH 5 DAYS Normal [facility] Comment on above: Performed By: #### 2 823-3 #### [facility] ([id number]) [address], [address] [place] [address] ASPIRATE CULTUREon 4 Bacteria identified Aer cx Nom (Asp) GRAM STAIN 10 to 24 WHITE BLOOD CELLS/LPF 0 to 1 SQUAMOUS EPITHELIAL CELLS/LPF NO ORGANISMS SEEN CULTURE RESULTS NO GROWTH 5 DAYS Normal [facility] Comment on above: Performed By: #### C RT #### [facility] ([id number]) [address], [address] [place] [address] CBC AND AUTO DIFFon 01-15-20 24 ABSOLUTE BASOPHIL 0.0 X10E9/L Normal 0.0-0.2 [facility] Comment on above: Performed By: #### C RT #### [facility] ([id number]) [address], [address] [place] [address] ABSOLUTE NEUTROPHIL 8.6 X10E9/L High 1.5-6.6 [facility] Comment on above: Performed By: #### C RT #### [facility] ([id number]) [address], [address] [place] [address] Basophils/100 WBC (Bld) 0.2 % Normal [facility] Comment on above: Performed By: #### C RT #### [facility] ([id number]) [address], [address] [place] [address] Eosinophils (Bld) [#/Vol] 0.1 10*3/uL Normal 0.0-0.4 [facility] Comment on above: Performed By: #### C RT #### [facility] ([id number]) [address], [address] [place] [address] Eosinophils/100 WBC (Bld) 0.9 % Normal [facility] Comment on above: Performed By: #### C RT #### [facility] ([id number]) [address], [address] [place] [address] Erythrocyte distribution width (RBC) [Ratio] 14.9 % Normal 11.5-15.0 [facility] Comment on above: Performed By: #### C RT #### [facility] ([id number]) [address], [address] [place] [address] Hematocrit (Bld) [Volume fraction] 27.7 % Low 35-47 [facility] Comment on above: Performed By: #### C RT #### [facility] ([id number]) [address], [address] [place] [address] Hemoglobin (Bld) [Mass/Vol] 9.1 g/dL Low 11.7-15.5 [facility] Comment on above: Performed By: #### C RT #### [facility] ([id number]) [address], [address] [place] [address] Lymphocytes (Bld) [#/Vol] 1.3 10*3/uL Normal 1.0-3.5 [facility] Comment on above: Performed By: #### C RT #### [facility] ([id number]) [address], [address] [place] [address] Lymphocytes/100 WBC (Bld) 11.2 % Normal [facility] Comment on above: Performed By: #### C RT #### [facility] ([id number]) [address], [address] [place] [address] MCH (RBC) [Entitic mass] 27.3 pg Normal 27-34 [facility] Comment on above: Performed By: #### C RT #### [facility] ([id number]) [address], [address] [place] [address] MCHC (RBC) [Mass/Vol] 32.7 g/dL Normal 32-36 [facility] Comment on above: Performed By: #### C RT #### [facility] ([id number]) [address], [address] [place] [address] MCV (RBC) [Entitic vol] 83 fL Normal 80-100 [facility] Comment on above: Performed By: #### C RT #### [facility] ([id number]) [address], [address] [place] [address] Monocytes (Bld) [#/Vol] 1.2 10*3/uL High 0-0.9 [facility] Comment on above: Performed By: #### C RT #### [facility] ([id number]) [address], [address] [place] [address] Monocytes/100 WBC (Bld) 10.5 % Normal [facility] Comment on above: Performed By: #### C RT #### [facility] ([id number]) [address], [address] [place] [address] Neutrophils/100 WBC (Bld) 77.2 % Normal [facility] Comment on above: Performed By: #### C RT #### [facility] ([id number]) [address], [address] [place] [address] Platelet mean volume (Bld) [Entitic vol] 8.4 fL Normal 7-12 [facility] Comment on above: Performed By: #### C RT #### [facility] ([id number]) [address], [address] [place] [address] Platelets (Bld) [#/Vol] 251 10*3/uL Normal 150-450 [facility] Comment on above: Performed By: #### C RT #### [facility] ([id number]) [address], [facility] [address] [place] [address] RBC COUNT 3.32 X10E12/L Low 3.80-5.20 [facility] Comment on above: Performed By: #### C RT #### [facility] ([id number]) [address], [address] [place] [address] WBC (Bld) [#/Vol] 11.2 10*3/uL High 4.0-11.0 [facility] Comment on above: Performed By: #### C RT #### [facility] ([id number]) [address], [address] [place] [address] COMPREHENSIVE METABOLIC PANE Blaine 01-15-2024 Albumin [Mass/Vol] 3.0 g/dL Low 3.2-5.3 [facility] Comment on above: Performed By: #### C RT #### [facility] ([id number]) [address], [address] [place] [address] ALP [Catalytic activity/Vol] 97 U/L Normal 39-130 [facility] Comment on above: Performed By: #### C RT #### [facility] ([id number]) [address], [address] [place] [address] ALT [Catalytic activity/Vol] 14 U/L Normal 0-31 [facility] Comment on above: Performed By: #### C RT #### [facility] ([id number]) [address] [place] [address] Anion gap [Moles/Vol] 10 mmol/L Normal 5-15 [facility] Comment on above: Performed By: #### C RT #### [facility] ([id number]) [address], [address] [place] [address] AST [Catalytic activity/Vol] 13 U/L Normal 0-41 [facility] Comment on above: Performed By: #### C RT #### [facility] ([id number]) [address], [address] [place] [address] Bilirubin [Mass/Vol] 0.7 mg/dL Normal 0.3-1.2 [facility] Comment on above: Performed By: #### C RT #### [facility] ([id number]) [address], [address] [place] [address] Calcium [Mass/Vol] 8.4 mg/dL Low 8.5-10.5 [facility] Comment on above: Performed By: #### C RT #### [facility] ([id number]) [address], [address] [place] [address] Chloride [Moles/Vol] 101 mmol/L Normal 98-109 [facility] Comment on above: Performed By: #### C RT #### [facility] ([id number]) [address], [address] [place] [address] CO2 [Moles/Vol] 28 mmol/L Normal 22-32 [facility] Comment on above: Performed By: #### C RT #### [facility] ([id number]) [address] [address] [place] [address] Creatinine [Mass/Vol] 0.41 mg/dL Normal 0.40-1.00 [facility] Comment on above: Result Comment: METH OD TRACEABLE TO IDMS STANDARD Performed By: #### C RT #### [facility] ([id number]) [address], [address] [place] [address] eGFR (CKD-EPI) NON-RACE DEPENDENT >90 Normal >59 [facility] Comment on above: Result Comment: Reported eGFR is based on the CKD-EPI 2020 equation that does not use a race coefficient. Performed By: #### C RT #### [facility] ([id number]) [address], [address] [place] [address] Glucose [Mass/Vol] 85 mg/dL Normal 65-99 [facility] Comment on above: Performed By: #### C RT #### [facility] ([id number]) [address] [address] [place] [address] Potassium [Moles/Vol] 3.4 mmol/L Low 3.5-5.0 [facility] Comment on above: Performed By: #### C RT #### [facility] ([id number]) [address], [address] [place] [address] Protein [Mass/Vol] 6.0 g/dL Normal 6.0-8.0 [facility] Comment on above: Performed By: #### C RT #### [facility] ([id number]) [address] [address] [place] [address] Sodium [Moles/Vol] 139 mmol/L Normal 134-146 [facility] Comment on above: Performed By: #### C RT #### [facility] ([id number]) [address], [address] [place] [address] Urea nitrogen [Mass/Vol] 2 mg/dL Low 5-23 [facility] Comment on above: Performed By: #### C RT #### [facility] ([id number]) [address] [address] [place] [address] Fibrinogen Coagulation.deriv ed (PPP) [Mass/Vol]on 01-15-2024 FIBRINOGEN 647 mg/dL High 190-480 [facility] Comment on above: Performed By: #### C RT #### [facility] ([id number]) [address], [address] [place] [address] POTASSIUMon 01-15-2024 Potassium [Moles/Vol] 3.5 mmol/L Normal 3.5-5.0 [facility] Comment on above: Performed By: #### C RT #### [facility] ([id number]) [address] [address] PROTIME AND INRon 01-15-2024 INR Coag (PPP) [Relative time] 1.6 {INR} High 0.8-1.1 [facility] Comment on above: Performed By: #### C RT #### [facility] ([id number]) [address] [address] [place] [address] PT Coag (PPP) [Time] 17.8 s High 9.8-13.2 [facility] Comment on above: Performed By: #### C RT #### [facility] ([id number]) [address], [address] [place] [address] aPTT Coag (PPP) [Time]on aPTT Coag (Bld) [Time] 31 s Normal 26-37 [facility] Comment on above: Performed By: #### C RT #### [facility] ([id number]) [address], [address] [place] [address] BLOOD CULTUREon 01-14-2024 Bacteria identified Aer cx Nom (Bld) SPECIMEN NOTES SUBOPTIMAL VOLUME OF BLOOD COLLECTED, RESULTS MAY BE AFFECTED. CULTURE RESULTS NO GROWTH 5 DAYS Normal [facility] Comment on above: Performed By: #### 1 7928-3 #### [facility] ([id number]) [address], [address] [place] [address] Bacteria identified Aer cx Nom (Bld) SPECIMEN NOTES SUBOPTIMAL VOLUME OF BLOOD COLLECTED, RESULTS MAY BE AFFECTED. CULTURE RESULTS NO GROWTH 5 DAYS Normal [facility] Comment on above: Performed By: #### C RT #### [facility] ([id number]) [address], [address] [place] [address] CBC AND AUTO DIFFon 01-14-20 24 ABSOLUTE BASOPHIL 0.0 X10E9/L Normal 0.0-0.2 [facility] Comment on above: Performed By: #### C BCA, 51443-0, PINR, 40664-8, CMP #### [facility] ([id number]) [address], [address] [place] [address] ABSOLUTE NEUTROPHIL 8.2 X10E9/L High 1.5-6.6 [facility] Comment on above: Performed By: #### C BCA, 57205-0, PINR, 53229-5, CMP #### [facility] ([id number]) [address] [address] Basophils/100 WBC (Bld) 0.2 % Normal [facility] Comment on above: Performed By: #### C BCA, 64890-3, PINR, 69853-6, CMP #### [facility] ([id number]) [address] [address] [place] [address] Eosinophils (Bld) [#/Vol] 0.1 10*3/uL Normal 0.0-0.4 [facility] Comment on above: Performed By: #### C BCA, 54141-6, PINR, 44382-2, CMP #### [facility] ([id number]) [address] [address] [place] [address] Eosinophils/100 WBC (Bld) 0.9 % Normal [facility] Comment on above: Performed By: #### Chantal BISHOP, 23732-7, PINR, 33427-5, CMP #### [facility] ([id number]) [address], [address] [place] [address] Erythrocyte distribution width (RBC) [Ratio] 15.2 % High 11.5-15.0 [facility] Comment on above: Performed By: #### C DARIO, 24473-1, PINR, 23093-2, CMP #### [facility] ([id number]) [address], [address] [place] [address] Hematocrit (Bld) [Volume fraction] 31.0 % Low 35-47 [facility] Comment on above: Performed By: #### Chantal BISHOP, 90560-1, PINR, 44177-7, CMP #### [facility] ([id number]) [address], [address] [place] [address] Hemoglobin (Bld) [Mass/Vol] 10.3 g/dL Low 11.7-15.5 [facility] Comment on above: Performed By: #### Chantal BISHOP, 84745-5, PINR, 08420-0, CMP #### [facility] ([id number]) [address], [address] [place] [address] Lymphocytes (Bld) [#/Vol] 1.3 10*3/uL Normal 1.0-3.5 [facility] Comment on above: Performed By: #### Chantal BISHOP, 98046-6, PINR, 19823-9, CMP #### [facility] ([id number]) [address], [address] [place] [address] Lymphocytes/100 WBC (Bld) 12.6 % Normal [facility] Comment on above: Performed By: #### Chantal BISHOP, 21008-7, PINR, 02280-2, CMP #### [facility] ([id number]) [address], [address] [place] [address] MCH (RBC) [Entitic mass] 27.9 pg Normal 27-34 [facility] Comment on above: Performed By: #### C DARIO, 05290-1, PINR, 12436-2, CMP #### [facility] ([id number]) [address], [address] [place] [address] MCHC (RBC) [Mass/Vol] 33.2 g/dL Normal 32-36 [facility] Comment on above: Performed By: #### Chantal BISHOP, 49709-2, PINR, 17285-9, CMP #### [facility] ([id number]) [address], [address] [place] [address] MCV (RBC) [Entitic vol] 84 fL Normal 80-100 [facility] Comment on above: Performed By: #### Chantal BCA, 69958-7, PINR, 77944-4, CMP #### [facility] ([id number]) [address], [address] [place] [address] Monocytes (Bld) [#/Vol] 0.9 10*3/uL Normal 0-0.9 [facility] Comment on above: Performed By: #### Chantal BCA, 60545-7, PINR, 69492-8, CMP #### [facility] ([id number]) [address], [address] [place] [address] Monocytes/100 WBC (Bld) 8.9 % Normal [facility] Comment on above: Performed By: #### C BCA, 96001-2, PINR, 92385-2, CMP #### [facility] ([id number]) [address], [address] [place] [address] Neutrophils/100 WBC (Bld) 77.4 % Normal [facility] Comment on above: Performed By: #### C BCA, 05152-0, PINR, 90286-3, CMP #### [facility] ([id number]) [address], [facility] [address] [place] [address] Platelet mean volume (Bld) [Entitic vol] 8.3 fL Normal 7-12 [facility] Comment on above: Performed By: #### C BCA, 46557-4, PINR, 87474-5, CMP #### [facility] ([id number]) [address], [facility] [address] [place] [address] Platelets (Bld) [#/Vol] 250 10*3/uL Normal 150-450 [facility] Comment on above: Performed By: #### C BCA, 42915-5, PINR, 78096-4, CMP #### [facility] ([id number]) [address], [facility] [address] [place] [address] RBC COUNT 3.69 X10E12/L Low 3.80-5.20 [facility] Comment on above: Performed By: #### C BCA, 01878-5, PINR, 50564-6, CMP #### [facility] ([id number]) [address] [address] WBC (Bld) [#/Vol] 10.5 10*3/uL Normal 4.0-11.0 [facility] Comment on above: Performed By: #### C BCA, 78465-6, PINR, 82515-6, CMP #### [facility] ([id number]) [address], [address] [place] [address] COMPREHENSIVE METABOLIC PANE Blaine 01-14-2024 Albumin [Mass/Vol] 3.2 g/dL Normal 3.2-5.3 [facility] Comment on above: Performed By: #### Chantal BCA, 61790-9, PINR, 15976-1, CMP #### [facility] ([id number]) [address], [address] [place] [address] ALP [Catalytic activity/Vol] 103 U/L Normal 39-130 [facility] Comment on above: Performed By: #### C BCA, 93525-1, PINR, 46523-5, CMP #### [facility] ([id number]) [address], [address] [place] [address] ALT [Catalytic activity/Vol] 25 U/L Normal 0-31 [facility] Comment on above: Performed By: #### C BCA, 46818-8, PINR, 53163-3, CMP #### [facility] ([id number]) [address], [address] [place] [address] Anion gap [Moles/Vol] 9 mmol/L Normal 5-15 [facility] Comment on above: Performed By: #### C BCA, 24134-2, PINR, 91890-1, CMP #### [facility] ([id number]) [address], [address] [place] [address] AST [Catalytic activity/Vol] 26 U/L Normal 0-41 [facility] Comment on above: Performed By: #### C BCA, 47646-1, PINR, 86910-1, CMP #### [facility] ([id number]) [address], [address] [place] [address] Bilirubin [Mass/Vol] 0.6 mg/dL Normal 0.3-1.2 [facility] Comment on above: Performed By: #### C BCA, 55907-6, PINR, 13049-6, CMP #### [facility] ([id number]) [address], [address] [place] [address] Calcium [Mass/Vol] 8.2 mg/dL Low 8.5-10.5 [facility] Comment on above: Performed By: #### C BCA, 59236-2, PINR, 19896-2, CMP #### [facility] ([id number]) [address], [address] [place] [address] Chloride [Moles/Vol] 102 mmol/L Normal 98-109 [facility] Comment on above: Performed By: #### C BCA, 89494-3, PINR, 49580-6, CMP #### [facility] ([id number]) [address], [address] [place] [address] CO2 [Moles/Vol] 28 mmol/L Normal 22-32 [facility] Comment on above: Performed By: #### C BCA, 73619-9, PINR, 14590-9, CMP #### [facility] ([id number]) [address] [place] [address] Creatinine [Mass/Vol] 0.48 mg/dL Normal 0.40-1.00 [facility] Comment on above: Result Comment: METH OD TRACEABLE TO IDMS STANDARD Performed By: #### C BCA, 31363-0, PINR, 96656-6, CMP #### [facility] ([id number]) [address] [place] [address] eGFR (CKD-EPI) NON-RACE DEPENDENT >90 Normal >59 [facility] Comment on above: Result Comment: Reported eGFR is based on the CKD-EPI 2020 equation that does not use a race coefficient. Performed By: #### C BCA, 51664-5, PINR, 29114-3, CMP #### [facility] ([id number]) [address], [address] [place] [address] Glucose [Mass/Vol] 92 mg/dL Normal 65-99 [facility] Comment on above: Performed By: #### C BCA, 32831-4, PINR, 37156-1, CMP #### [facility] ([id number]) [address], [address] [place] [address] Potassium [Moles/Vol] 3.2 mmol/L Low 3.5-5.0 [facility] Comment on above: Performed By: #### C BCA, 04506-6, PINR, 02779-1, CMP #### [facility] ([id number]) [address], [address] [place] [address] Protein [Mass/Vol] 6.6 g/dL Normal 6.0-8.0 [facility] Comment on above: Performed By: #### C BCA, 85177-8, PINR, 35525-6, CMP #### [facility] ([id number]) [address], [address] [place] [address] Sodium [Moles/Vol] 139 mmol/L Normal 134-146 [facility] Comment on above: Performed By: #### C BCA, 39994-5, PINR, 45853-7, CMP #### [facility] ([id number]) [address], [address] [place] [address] Urea nitrogen [Mass/Vol] 3 mg/dL Low 5-23 [facility] Comment on above: Performed By: #### C BCA, 38672-3, PINR, 59328-2, CMP #### [facility] ([id number]) [address], [address] [place] [address] Fibrinogen Coagulation.deriv ed (PPP) [Mass/Vol]on 01-14-2024 FIBRINOGEN 803 mg/dL High 190-480 [facility] Comment on above: Performed By: #### C BCA, 18138-9, PINR, 99854-1, CMP #### [facility] ([id number]) [address], [address] [place] [address] POTASSIUMon 01-14-2024 Potassium [Moles/Vol] 3.9 mmol/L Normal 3.5-5.0 [facility] Comment on above: Performed By: #### 2 823-3 #### [facility] ([id number]) [address], [address] [place] [address] PROTIME AND INRon 01-14-2024 INR Coag (PPP) [Relative time] 1.2 {INR} High 0.8-1.1 [facility] Comment on above: Performed By: #### C DARIO, 14709-8, PINR, [id number], CMP #### [facility] ([id number]) [address], [address] [place] [address] PT Coag (PPP) [Time] 14.3 s High 9.8-13.2 [facility] Comment on above: Performed By: #### C DARIO, 57739-3, PINR, 45220-3, CMP #### [facility] ([id number]) [address], [address] [place] [address] aPTT Coag (PPP) [Time]on aPTT Coag (Bld) [Time] 30 s Normal 26-37 [facility] Comment on above: Performed By: #### C DARIO, 12216-1, PINR, [id number], CMP #### [facility] ([id number]) [address], [address] [place] [address] APTTon 01-13-2024 ACTIVATED PARTIAL THROMBOPLASTIN TIME IN PPP BY COAGULATION ASSAY 37.7 Seconds High 25.0-35.0 [facility] Comment on above: Result Comment: Clin ical significance of the APTT is questionable in the presence of heparin. Performed By: #### L [id number] #### [facility] ([facility]AK[facility]) [address] [place] [address] BLOOD CULTUREon 01-13-2024 Bacteria identified Cx Nom (Bld) No growth at 5 days Normal [facility] Comment on above: Performed By: #### L [id number] #### [facility] ([facility]) [address] [place] [address] CBC WITH AUTO DIFFERENTIALon 01-13-2024 Basophils (Bld) [#/Vol] 0.03 10*3/uL Normal 0.00-0.20 [facility] Comment on above: Performed By: #### L [id number] #### [facility] ([facility]) [address] [place] [address] Basophils/100 WBC (Bld) 0.2 % Normal 0.0-1.0 [facility] Comment on above: Performed By: #### L [id number] #### [facility] ([facility]) [address] [place] [address] Eosinophils (Bld) [#/Vol] 0.05 10*3/uL Normal 0.00-0.50 [facility] Comment on above: Performed By: #### L [id number] #### [facility] ([facility]) [address] [place] [address] Eosinophils/100 WBC (Bld) 0.4 % Normal 0.0-6.0 [facility] Comment on above: Performed By: #### L [id number] #### [facility] ([facility]) [address] [place] [address] Erythrocyte distribution width (RBC) [Ratio] 14.0 % Normal 11.5-15.0 [facility] Comment on above: Performed By: #### L [id number] #### [facility] ([facility]) [address] [place] [address] ERYTHROCYTE MEAN CORPUSCULAR HEMOGLOBIN CONCENTRATION (G/DL) BY AUTOMATED 32.9 g/dL Normal 32.0-35.0 [facility] Comment on above: Performed By: #### L [id number] #### [facility] ([facility]) [address] [place] [address] Hematocrit (Bld) [Volume fraction] 32.8 % Low 36.0-48.0 [facility] Comment on above: Performed By: #### L [id number] #### [facility] ([facility]) [address] [place] [address] Hemoglobin (Bld) [Mass/Vol] 10.8 g/dL Low 12.0-15.0 [facility] Comment on above: Performed By: #### L [id number] #### [facility] [address] [place] [address] Immature granulocytes (Bld) [#/Vol] 0.05 10*3/uL Normal 0.00-0.20 [facility] Comment on above: Performed By: #### L [id number] #### [facility] [address] [place] [address] Immature granulocytes/100 WBC (Bld) 0.4 % Normal 0.0-1.0 [facility] Comment on above: Performed By: #### L [id number] #### [facility] [address] [place] [address] Lymphocytes (Bld) [#/Vol] 1.38 10*3/uL Normal 1.20-4.00 [facility] Comment on above: Performed By: #### L [id number] #### [facility] ([facility]) [address] [place] [address] Lymphocytes/100 WBC (Bld) 10.9 % Low 20.0-45.0 [facility] Comment on above: Performed By: #### L [id number] #### [facility] ([facility]) [address] [place] [address] MCH (RBC) [Entitic mass] 27.6 pg Normal 27.0-33.0 [facility] Comment on above: Performed By: #### L [id number] #### [facility] ([facility]) [address] [place] [address] MCV (RBC) [Entitic vol] 83.7 fL Normal 82.0-98.0 [facility] Comment on above: Performed By: #### L [id number] #### [facility] ([facility]) [address] [place] [address] Monocytes (Bld) [#/Vol] 0.98 10*3/uL Normal 0.10-1.00 [facility] Comment on above: Performed By: #### L [id number] #### [facility] ([facility]) [address] [place] [address] Monocytes/100 WBC (Bld) 7.8 % Normal 5.0-12.0 [facility] Comment on above: Performed By: #### L [id number] #### [facility] ([facility]) [address] [place] [address] Neutrophils (Bld) [#/Vol] 10.15 10*3/uL High 1.60-7.60 [facility] Comment on above: Performed By: #### L [id number] #### [facility] ([facility]) [address] [place] [address] Neutrophils/100 WBC (Bld) 80.3 % High 40.0-72.0 [facility] Comment on above: Performed By: #### L [id number] #### [facility] ([facility]) [address] [place] [address] NRBC (PER 100 WBCS) BY AUTOMATED COUNT 0.0 % Normal 0 [facility] Comment on above: Performed By: #### L [id number] #### [facility] ([facility]) [address] [place] [address] PLATELETS (10*3/UL) IN BLOOD AUTOMATED COUNT 297 10*3/uL Normal 150-400 [facility] Comment on above: Performed By: #### L [id number] #### [facility] ([facility]) [address] [place] [address] RBC (Bld) [#/Vol] 3.92 10*6/uL Normal 3.80-5.00 [facility] Comment on above: Performed By: #### L [id number] #### [facility] [address] [place] [address] WBC (Bld) [#/Vol] 12.64 10*3/uL High 4.00-10.60 [facility] Comment on above: Performed By: #### L [id number] #### [facility] ([facility]) [address] [place] [address] COMPREHENSIVE METABOLIC PANE Blaine 01-13-2024 Albumin [Mass/Vol] 3.7 g/dL Normal 3.5-5.7 [facility] Comment on above: Performed By: #### L [id number] #### [facility] ([facility]) [address] [place] [address] ALP [Catalytic activity/Vol] 115 U/L High 34-104 [facility] Comment on above: Performed By: #### L [id number] #### [facility] ([facility]) [address] [place] [address] ALT [Catalytic activity/Vol] 30 U/L Normal 7-52 [facility] Comment on above: Performed By: #### L [id number] #### [facility] ([facility]) [address] [place] [address] Anion gap [Moles/Vol] 13 mmol/L Normal 7-20 [facility] Comment on above: Performed By: #### L [id number] #### [facility] ([facility]) [address] [place] [address] AST [Catalytic activity/Vol] 30 U/L Normal 13-39 [facility] Comment on above: Performed By: #### L [id number] #### [facility] ([facility]) [address] [place] [address] Bilirubin [Mass/Vol] 0.6 mg/dL Normal 0.3-1.0 [facility] Comment on above: Performed By: #### L [id number] #### [facility] ([facility]) [address] [place] [address] Calcium [Mass/Vol] 8.8 mg/dL Normal 8.6-10.3 [facility] Comment on above: Performed By: #### L [id number] #### [facility] ([facility]) [address] [place] [address] Chloride [Moles/Vol] 94 mmol/L Low 98-107 [facility] Comment on above: Performed By: #### L [id number] #### [facility] ([facility]) [address] [place] [address] CO2 [Moles/Vol] 32 mmol/L High 21-31 [facility] Comment on above: Performed By: #### L [id number] #### [facility] ([facility]) [address] [place] [address] Creatinine [Mass/Vol] 0.69 mg/dL Normal 0.60-1.20 [facility] Comment on above: Performed By: #### L [id number] #### [facility] ([facility]) [address] [place] [address] GLOMERULAR FILTRATION RATE ML/MIN/1.73 SQ M.PREDICTED 121.2 mL/min/1.73m*2 Normal >60.0 [facility] Comment on above: Result Comment: The [facility]???s estimated glomerular filtration rate (eGFR) will no longer include consideration of race in its calculation. The National Kid[employer] Foundation???s eGFR Task Force developed new recommendations for the estimation of the glomerular filtration rate in the [place] They recommend immediate implementation of the new equation refit without the race variable in all laboratories because the calculation does not include race. In addition to not including race in the calculation and reporting, it included diversity in its development, and has acceptable performance characteristics and potential consequences that do not disproportionately affect any one group of individuals. Performed By: #### L [id number] #### [facility] ([facility]) [address] [place] [address] Glucose [Mass/Vol] 77 mg/dL Normal 70-100 [facility] Comment on above: Performed By: #### L [id number] #### [facility] ([facility]) [address] [place] [address] Potassium [Moles/Vol] 2.7 mmol/L Invalid Interpretation Code 3.5-5.1 [facility] Comment on above: Performed By: #### L [id number] #### [facility] ([facility]) [address] [place] [address] Protein [Mass/Vol] 7.9 g/dL Normal 6.0-8.3 [facility] Comment on above: Performed By: #### L [id number] #### [facility] ([facility]) [address] [place] [address] Sodium [Moles/Vol] 136 mmol/L Normal 136-145 [facility] Comment on above: Performed By: #### L [id number] #### [facility] ([facility]) [address] [place] [address] Urea nitrogen [Mass/Vol] 9 mg/dL Normal 7-25 [facility] Comment on above: Performed By: #### L [id number] #### [facility] ([facility]) [address] [place] [address] UREA NITROGEN/CREATININE (MASS RATIO) IN SER/PLAS 13.0 Normal [facility] Comment on above: Performed By: #### L [id number] #### [facility] ([facility]) [address] [place] [address] CREATININEon 01-13-2024 Creatinine [Mass/Vol] 0.53 mg/dL Normal 0.40-1.00 [facility] Comment on above: Result Comment: METH OD TRACEABLE TO IDMS STANDARD Performed By: #### C RT #### [facility] ([id number]) [address], [address] [place] [address] eGFR (CKD-EPI) NON-RACE DEPENDENT >90 Normal >59 [facility] Comment on above: Result Comment: Reported eGFR is based on the CKD-EPI 2020 equation that does not use a race coefficient. Performed By: #### C RT #### [facility] ([id number]) [address], [address] [place] [address] CT ABDOMEN PELVIS W IV CONTR Marichuy 01-13-2024 CT ABDOMEN PELVIS W IV CONTRAST CT ABDOMEN PELVIS W IV CONTRAST 01/13/2024 3:20 PM SIGNS AND SYMPTOMS: Chest pain abdominal pain TECHNOLOGIST COMMENTS: QUESTION FOR THE RADIOLOGIST: PROTOCOL: CT abdomen and pelvis conducted with IV contrast 100 MLO Omnipaque 350 COMPARISON: None FINDINGS: Lower chest:See chest CT dictation Liver:Normal. Spleen:Normal. Gallbladder:Normal. Bile ducts:No dilatation. Pancreas:Normal. Adrenal glands:Normal. Kidneys:Normal. Ureters:Normal. Bladder:Limited evaluation not well distended Reproductive organs:Uterus not visualized there is a complex cystic mass in the pelvis with surrounding inflammatory change in the fat most consistent with an abscess. There is some inflammation involving the large and small bowel in the deep pelvis with wall thickening likely due to surrounding inflammation from the patient's abscess. Complex fluid collection measures in aggregate approximately 7.4 x 5.7 cm. Mildly enlarged lymph nodes along the external iliac chain on the right. Bowel:See above Mesentery:Small lower mesenteric lymph nodes reactive Peritoneum:No free air or free fluid Retroperitoneum: Small periaortic lymph nodes likely reactive Vessels:No aortic aneurysm Abdominal wall:No hernia Bones:Normal IMPRESSION: Complex fluid collection in the deep pelvis measurements given above. Likely represents abscess. Surrounding inflammatory change which is also involving the large and small bowel in the deep pelvis. Percutaneous drainage may be difficult due to overlying bowel . All CT scans at this facility use dose modulation iterative reconstruction and or weight balanced dosing when appropriate to reduce radiation dose to as low as reasonably achievable Electronically signed: Arsalan Bales MD. Normal [facility] CTA CHEST W IV CONTRASTon CTA CHEST W IV CONTRAST CTA CHEST W IV CONTRAST 01/13/2024 3:20 PM SIGNS AND SYMPTOMS: Chest pain TECHNOLOGIST COMMENTS: QUESTION FOR THE RADIOLOGIST: PROTOCOL: CTA chest with contrast. Study reformatted into standard images and three-dimensional maximal intensity projection images on a separate workstation. COMPARISON: No prior FINDINGS: Thoracic inlet: Normal Mediastinum: No adenopathy Dorinda: No adenopathy Vessels:No aortic aneurysm. Bolus timing for opacification of the pulmonary artery is poor and pulmonary embolism cannot be excluded. Heart: Normal Airways: Normal Lungs: Normal Pleura: No effusion Chest wall: Normal Upper abdomen: Normal Bones: Normal IMPRESSION: Bolus timing for opacification of the pulmonary artery is poor and pulmonary embolism cannot be excluded. No pneumonia or pleural effusion. . All CT scans at this facility use dose modulation iterative reconstruction and or weight balanced dosing when appropriate to reduce radiation dose to as low as reasonably achievable Electronically signed: Arsalan Bales MD. [facility] EDNURSon 01-13-2024 EDNURS Mode of arrival (squ ad #, walk in, police, etc): Walk in Chief complaint(s): Chest pain/post op problem Arrival Note (brief scenario, treatment DOUPER, etc): Pt had a partial hysterectomy on November 19, she stated that she was told she had an infection in her stitches. Pt is also is having some chest pain that has been on and off. She stated this is the worse that she has had it. [facility] EDPROVon 01-13-2024 EDPROV HPI Chief Complaint Patient presents with Chest Pain Post-op Problem Pt is a 28yo F who states she had a total hysterectomy on 11/20/23 and has been having complications with increasing pain since. States he has been in to see her Ob-Np and was told her incision was infected and started on antibiotics yesterday. Pt states she is now running a fever of 102 and endorses chills, body aches and chest pain which began last night. Denies vaginal bleeding/discharge, n/v/d, urinary complaints. History provided by: Patient Norman Coma Scale Score: 15 Patient History No past medical history on file. No past surgical history on file. No family history on file. Social History Tobacco Use Smoking status: Not on file Smokeless tobacco: Not on file Substance Use Topics Alcohol use: Not on file Drug use: Not on file Review of Systems Review of Systems Constitutional: Positive for appetite change, chills, fatigue and fever. Negative for activity change, diaphoresis and unexpected weight change. HENT: Positive for congestion. Respiratory: Negative for shortness of breath. Cardiovascular: Positive for chest pain. Negative for palpitations and leg swelling. Gastrointestinal: Positive for abdominal pain. Negative for blood in stool, constipation, diarrhea, nausea and vomiting. Endocrine: Negative. Genitourinary: Negative for dysuria, flank pain, vaginal bleeding and vaginal discharge. Musculoskeletal: Positive for myalgias. Skin: Negative for rash. Allergic/Immunologic: Negative. Neurological: Negative for dizziness and syncope. Hematological: Negative. Physical Exam ED Triage Vitals [01/13/24 1342] Temp Heart Rate Resp BP 37 ???C (98.6 ???F) (!) 118 18 107/71 SpO2 Temp src Heart Rate Source Patient Position 98 % -- -- -- BP Location FiO2 (%) -- -- Physical Exam Constitutional: General: She is not in acute distress. Appearance: Normal appearance. She is not ill-appearing, toxic-appearing or diaphoretic. HENT: Head: Normocephalic and atraumatic. Nose: Nose normal. Mouth/Throat: Mouth: Mucous membranes are moist. Pharynx: Oropharynx is clear. Eyes: Pupils: Pupils are equal, round, and reactive to light. Cardiovascular: Rate and Rhythm: Regular rhythm. Tachycardia present. Heart sounds: Normal heart sounds. Pulmonary: Effort: Pulmonary effort is normal. Breath sounds: Normal breath sounds. Abdominal: General: Abdomen is flat. Bowel sounds are normal. Palpations: Abdomen is soft. Tenderness: There is abdominal tenderness in the periumbilical area and suprapubic area. There is no right CVA tenderness, left CVA tenderness or guarding. Hernia: No hernia is present. Musculoskeletal: General: Normal range of motion. Cervical back: Normal range of motion and neck supple. Skin: General: Skin is warm. Capillary Refill: Capillary refill takes less than 2 seconds. Neurological: Mental Status: She is alert and oriented to person, place, and time. Procedures ED Course & MDM ED Course as of 01/14/242229 Sat Jan 13, [address] Linn at [facility], he accepted pt for transfer. [BM] ED Course User Index [BM] Robbin Coleman NP Diagnoses as of 01/14/242229 Pelvic abscess in female Sepsis without acute organ dysfunction, due to unspecified organism ([facility]) Medical Decision Making Attestion Robbin Coleman NP 01/14/242230 Normal [facility] LACTIC ACID WITH 4 HOUR REFL EXon 01-13-2024 LACTATE (MMOL/L) IN SER/PLAS 1.3 mmol/L Normal 0.5-2.2 [facility] Comment on above: Performed By: #### L [id number] #### [facility] (BEAKER) [address] [place] [address] MAGNESIUMon 01-13-2024 Magnesium [Mass/Vol] 2.5 mg/dL Normal 1.9-2.7 [facility] Comment on above: Performed By: #### L [id number] #### [facility] (BOBBY) [address] [place] [address] POC CHEM7 W/ HCTon Chloride [Moles/Vol] 99 mmol/L Normal 98-109 [facility] Comment on above: Performed By: #### I [id number] #### [facility] ([id number]) [address] [place] [address] CO2 [Moles/Vol] 27 mmol/L Normal 22-32 [facility] Comment on above: Performed By: #### I 8XCA #### [facility] ([id number]) [address] [place] [address] Creatinine [Mass/Vol] 0.6 mg/dL Normal 0.4-1.0 [facility] Comment on above: Result Comment: METH OD TRACEABLE TO IDMS STANDARD Performed By: #### I [id number] #### [facility] ([id number]) [address] [place] [address] eGFR (CKD-EPI) NON-RACE DEPENDENT >90 Normal >59 [facility] Comment on above: Result Comment: Reported eGFR is based on the CKD-EPI 2020 equation that does not use a race coefficient. Performed By: #### I 8XCA #### [facility] ([id number]) [address] [place] [address] Glucose [Mass/Vol] 98 mg/dL Normal 65-99 [facility] Comment on above: Performed By: #### I 8XCA #### [facility] ([id number]) [address] [place] [address] Hematocrit (Bld) [Volume fraction] 29 % Low 35-47 [facility] Comment on above: Performed By: #### I [id number] #### [facility] ([id number]) [address] [place] [address] PORTABLE BUN <6 Low 6-23 [facility] Comment on above: Performed By: #### I 8XCA #### [facility] ([id number]) [address] [place] [address] Potassium [Moles/Vol] 2.9 mmol/L Low 3.5-5.0 [facility] Comment on above: Performed By: #### I 8XCA #### [facility] ([id number]) [address] [place] [address] Sodium [Moles/Vol] 138 mmol/L Normal 134-146 [facility] Comment on above: Performed By: #### I 8XCA #### [facility] ([id number]) [address] [place] [address] POTASSIUMon 01-13-2024 Potassium [Moles/Vol] 3.1 mmol/L Low 3.5-5.0 [facility] Comment on above: Performed By: #### 2 823-3 #### [facility] ([id number]) [address] [facility] [address] [facility] [place] [address] PROTIME-INRon 01-13-2024 INR IN PPP BY COAGULATION ASSAY 1.12 High 0.90-1.10 [facility] Comment on above: Result Comment: ACCC P RECOMMENDED INR FOR WARFARIN THERAPY CONDITION INR PROPHYLAXIS OF VENOUS THROMBOSIS 2-3 (HIGH-RISK SURGERY) TREATMENT OF VENOUS THROMBOSIS 2-3 TREATMENT OF PULMONARY EMBOLISM 2-3 PREVENTION OF SYSTEMIC EMBOLISM: 2-3 ACUTE MYOCARDIAL INFARCTION TISSUE HEART VALVES VALVULAR HEART DISEASE ATRIAL FIBRILLATION RECURRENT SYSTEMIC EMBOLISM MECHANICAL HEART VALVE 2.5-3.5 FROM: ORAL ANTICOAGULANTS. MECHANISM OF ACTION, CLINICAL EFFECTIVENESS, AND OPTIMAL THERAPEUTIC RANGE. CHEST 1995;108:231S-246S. Performed By: #### L [id number] #### [facility] ([facility]) [address] [place] [address] PROTHROMBIN TIME (PT) IN PPP BY COAGULATION ASSAY 14.4 Seconds Normal 12.3-14.8 [facility] Comment on above: Performed By: #### L [id number] #### [facility] ([facility]) [address] [place] [address] TROPONIN Ion 01-13-2024 Troponin I.cardiac [Mass/Vol] 0.02 ng/mL Normal 0.00-0.04 [facility] Comment on above: Performed By: #### L [id number] #### [facility] ([facility]) [address] [place] [address] URINALYSIS MICROSCOPIC WITH REFLEX CULTUREon 01-13-2024 CASTS IN URINE Normal [facility] Comment on above: Performed By: #### L [id number] #### [facility] ([facility]) [address] [place] [address] CRYSTALS IN URINE Normal [facility] Comment on above: Performed By: #### L [id number] #### [facility] ([facility]) [address] [place] [address] MUCUS (#/HPF) IN URINE SEDIMENT Many Abnormal None Seen, Occasional, Few [facility] Comment on above: Performed By: #### L [id number] #### [facility] ([facility]) [address] [place] [address] OTHER MICROSCOPIC ELEMENTS Normal [facility] Comment on above: Performed By: #### L [id number] #### [facility] ([facility]) [address] [place] [address] RBC (#/HPF) IN URINE SEDIMENT 6-10 Abnormal None Seen [facility] Comment on above: Performed By: #### L [id number] #### [facility] ([facility]) [address] [place] [address] SQUAMOUS EPITHELIAL CELLS (#/HPF) IN URINE SEDIMENT Moderate Abnormal None Seen, Occasional [facility] Comment on above: Performed By: #### L [id number] #### [facility] ([facility]) [address] [place] [address] WBC (LEUKOCYTE) (#/HPF) IN URINE SEDIMENT 11-20 Abnormal None Seen [facility] Comment on above: Performed By: #### L [id number] #### [facility] ([facility]) [address] [place] [address] URINALYSIS WITH REFLEX CULTU REon 01-13-2024 BILIRUBIN, TOTAL PRESENCE IN URINE Negative Normal Negative [facility] Comment on above: Performed By: #### L [id number] #### [facility] ([facility]) [address] [place] [address] Clarity (U) Slightly Cloudy Abnormal Clear [facility] Comment on above: Performed By: #### L [id number] #### [facility] ([facility]) [address] [place] [address] Color (U) Cassidy Abnormal Yellow [facility] Comment on above: Performed By: #### L [id number] #### [facility] ([facility]) [address] [place] [address] Glucose (U) [Mass/Vol] Negative Normal Negative [facility] Comment on above: Performed By: #### L [id number] #### [facility] ([facility]) [address] [place] [address] HEMOGLOBIN PRESENCE IN URINE Small Abnormal Negative [facility] Comment on above: Performed By: #### L [id number] #### [facility] ([facility]) [address] [place] [address] Ketones Ql (U) Negative Normal Negative [facility] Comment on above: Performed By: #### L [id number] #### [facility] ([facility]) [address] [place] [address] LEUKOCYTE ESTERASE PRESENCE IN URINE BY TEST STRIP Small Abnormal Negative [facility] Comment on above: Performed By: #### L [id number] #### [facility] ([facility]) [address] [facility] [address] [place] [address] NITRITE PRESENCE IN URINE Negative Normal Negative [facility] Comment on above: Performed By: #### L [id number] #### [facility] ([facility]) [address] [place] [address] pH (U) 5.0 [pH] Normal 5.0-8.0 [facility] Comment on above: Performed By: #### L [id number] #### [facility] ([facility]) [address] [place] [address] Protein (U) [Mass/Vol] 30 mg/dL Abnormal Negative [facility] Comment on above: Performed By: #### L [id number] #### [facility] ([facility]) [address] [facility] [place] [address] Specific gravity (U) [Rel density] 1.020 Normal 1.015-1.020 [facility] Comment on above: Performed By: #### L [id number] #### [facility] ([facility]) [address] [facility] [address] [place] [address] UROBILINOGEN (EU/DL) IN URINE 4.0 EU/dL Abnormal Negative [facility] Comment on above: Performed By: #### L [id number] #### [facility] ([facility]) [address] [place] [address] Activated partial thrombopla stin time (aPTT) in platelet poor plasma by coagulation aOrdered By: Nikhil Quiñones on 01-08-2024 aPTT Coag (PPP) [Time] 35.0 s 25.1-36.5 [facility] Comment on above: A hematocrit value g reater than 55% may lead to inaccurate results in coagulation testing. Patients having hematocrit values >55% require a special collection tube for coagulation studies. Please contact the laboratory at [phone] for redraw instructions. Alanine aminotransferase [En zymatic activity/volume] in Serum or PlasmaOrdered By: Nikhil Quiñones on 01-08-2024 ALT [Catalytic activity/Vol] 13 U/L Normal 7-52 [facility] Comment on above: Performed By: #### O SHENA UA #### [address] Albumin [Mass/volume] in Ser um or Plasma by Bromocresol green (BCG) dye binding methoOrdered By: Nikhil Quiñones on 01-08-2024 Albumin BCG dye [Mass/Vol] 4.4 g/dL 3.5-5.7 [facility] Alkaline phosphatase [Enzyma tic activity/volume] in Serum or PlasmaOrdered By: Nikhil Quiñones on 01-08-2024 ALP [Catalytic activity/Vol] 66 U/L Normal 34-104 [facility] Comment on above: Performed By: #### O SHENA UA #### [address] Aspartate aminotransferase [ Enzymatic activity/volume] in Serum or PlasmaOrdered By: Nikhil Quiñones on 01-08-2024 AST [Catalytic activity/Vol] 16 U/L Normal 13-39 [facility] Comment on above: Performed By: #### O SHENA UA #### [address] Automated basophil %Ordered By: Nikhil Quiñones on 01-08-2024 Basophils/100 WBC (Bld) 0.4 % Normal . [facility] Comment on above: Performed By: #### O SHENA UA #### [address] Automated basophil countOrde red By: Nikhil Quiñones on 01-08-2024 Basophils (Bld) [#/Vol] 0.0 10*3/uL Normal 0.0-0.2 [facility] Comment on above: Result Comment: PERF ORMED BY: [address] [place] [address] PATHOLOGIST [employer] LARISSA GUERRA M.D. Performed By: #### O SHENA, UA #### [address] Automated blood monocyte cou ntOrdered By: Nikhil Quiñones on 01-08-2024 Monocytes (Bld) [#/Vol] 0.6 10*3/uL Normal 0.0-0.8 [facility] Comment on above: Performed By: #### O BUDS, UA #### [address] Automated eosinophil %Ordere d By: Nikhil Quiñones on 01-08-2024 Eosinophils/100 WBC (Bld) 0.1 % Normal . [facility] Comment on above: Performed By: #### O BUDS UA #### [address] Automated eosinophil countOr dered By: Nikhil Quiñones on 01-08-2024 Eosinophils (Bld) [#/Vol] 0.0 10*3/uL Normal 0.0-0.45 [facility] Comment on above: Performed By: #### O BUDS UA #### [address] Automated monocyte %Ordered By: Nikhil Quiñones on 01-08-2024 Monocytes/100 WBC (Bld) 8.0 % Normal . [facility] Comment on above: Performed By: #### O BUDS, UA #### [address] Automated neutrophil %Ordere d By: Nikhil Quiñones on 01-08-2024 Neutrophils/100 WBC (Bld) 76.6 % Normal . [facility] Comment on above: Performed By: #### O BUDS, UA #### [address] Basic Metabolic Panelon 07-2 Creatinine Clr Calc Pharmacy 127.27 Normal [facility] Comment on above: Performed By: #### O BUDS, UA #### [address] GFR/1.73 sq M.predicted MDRD (S/P/Bld) [Vol rate/Area] mL/min/{1.73_m2} Normal [facility] Comment on above: Performed By: #### O SHENA, UA #### [address] Bilirubin Test strip Ql (U)O rdered By: Nikhil Quiñones on 01-08-2024 Bilirubin Ql (U) Negative Negative [facility] Bilirubin.direct [Mass/volum e] in Serum or PlasmaOrdered By: Nikhil Quiñones on 01-08-2024 Bilirubin.direct [Mass/Vol] 0.00 mg/dL Low 0.03-0.18 [facility] Comment on above: If the DBIL is less than 0.1, IBIL is not able to becalculated. Bilirubin.total [Mass/volume ] in Serum or PlasmaOrdered By: Nikhil Quiñones on 01-08-2024 Bilirubin [Mass/Vol] 0.3 mg/dL Normal 0.3-1.0 [facility] Comment on above: Performed By: #### O SHENA, UA #### [address] Blood Cultureon 01-08-2024 Bacteria identified Cx Nom (Bld) NO GROWTH 5 DAYS PERFORMED BY: [place] [address] PATHOLOGIST 21 DEAL[employer] LARISSA GUERRA M.D. Normal [facility] Comment on above: Performed By: #### A MNISURE- #### [address] COVID CepheidOrdered By: Joselito Quiñones on 01-08-2024 SARS-CoV-2 (COVID-19) Ab IA Ql Negative Negative [facility] Comment on above: This is a duplicate Cepheid Xpert Xpress CoV-2/Flu/RSV Plus RNA by RT-PCR result to be used for statistical tracking purpose only. SARS-CoV-2 (COVID-19) RNA MARICEL+probe Ql (Unsp spec) [facility] COVID-19 / Flu A/B / RSV PCR on 01-08-2024 SARS-CoV-2 (COVID-19) RNA MARICEL+probe Ql (Unsp spec) COVID-19 Cepheid Result Negative for SARS-CoV-2 RNA by RT-PCR Flu A Cepheid Result Negative for Flu A RNA by RT-PCR Flu B Cepheid Result Negative for Flu B RNA by RT-PCR RSV Cepheid Result Negative for RSV RNA by RT-PCR COVID19 Blank Space ---- Reference: Negative COVID19 Blank Space ---- Cepheid Disclaimer The Cepheid Xpert Xpress CoV-2/Flu/RSV Plus has Cepheid Disclaimer not been FDA cleared or approved; this test has Cepheid Disclaimer been authorized by FDA under an EUA for use by Cepheid Disclaimer authorized laboratories; this test has been Cepheid Disclaimer authorized only for the simultaneous qualitative Cepheid Disclaimer detection and differentiation of nucleic acids from Cepheid Disclaimer SARS-CoV-2, influenza A, influenza B, and Cepheid Disclaimer respiratory syncytial virus (RSV), and not for any Cepheid Disclaimer other viruses or pathogens; and this test is only Cepheid Disclaimer authorized for the duration of the declaration that Cepheid Disclaimer circumstances exist justifying the authorization of Cepheid Disclaimer emergency use of in vitro diagnostic tests for Cepheid Disclaimer detection and/or diagnosis of COVID-19 under Cepheid Disclaimer Section 564(b)(1) of the Act, 21 U.S.C. 360bbb- Cepheid Disclaimer 3(b)(1), unless the authorization is terminated or Cepheid Disclaimer revoked sooner. PERFORMED BY: [facility] [place] [address] PATHOLOGIST 21 DEALER LARISSA GUERRA M.D. Normal [facility] Comment on above: Performed By: #### O SHENA, UA #### [facility] [address] abdomen pelvis w conon CT abdomen pelvis w con [facility] [place] [address] [place] [address] CT Scan Report Signed Patient: Barbra Claros MR#: [id number] : 1995 Acct:[id number] Age/Sex: 28 / F ADM Date: 01/08/24 Loc: ER Room: Type: [facility] ER Attending Dr: Copies to: Nikhil Quiñones PA-C Ordering Provider: Nikhil Quiñones PA-C Date of Service: 01/08/24 CT/CT abdomen pelvis w con: Abdominal Pain CT ABDOMEN AND PELVIS WITH INTRAVENOUS CONTRAST: CLINICAL HISTORY: Abdominal pain status post hysterectomy on 11/20/2023. COMPARISON: None TECHNIQUE: Spiral images were obtained through the abdomen and pelvis following the administration of intravenous contrast. This CT exam was performed using one or more following dose reduction techniques: Automated exposure control, adjustment of the mA and/or kV according to patient size, or use of iterative reconstruction technique. FINDINGS: Lung Bases: [Unremarkable.] Organs:Liver gallbladder spleen portal vein pancreas adrenal glands kidneys and aorta all appear unremarkable.[ GI: Stomach is grossly unremarkable. Small bowel appears nondilated. Appendix is normal. No acute colonic abnormality.[ Pelvis:[Postoperative changes. Small amount of free fluid is seen. No adnexal mass. Urinary bladder is grossly unremarkable.] Peritoneum/Retroperitoneu m:No free air. No lymphadenopathy. No fluid collection to suggest abscess.[ Abd wall/Bones:No free air, free fluid or lymphadenopathy.[ CT/CT abdomen pelvis w con IMPRESSION: Expected postoperative changes involving the pelvis. No acute findings. No abscess. Impression dictated by: Leonard Maria Jr., D.OJudd01/08/2024 2:50 PM Dictation Location: [place] [address] Transcribed By: [facility] 01/08/24 1450 Dictated By: Leonard Maria Jr, DO 01/08/24 1427 Signed By: 01/08/24 1450 Normal [facility] Calcium [Mass/volume] in Ser um or PlasmaOrdered By: Nikhil Quiñones on 01-08-2024 Calcium [Mass/Vol] 9.5 mg/dL Normal 8.6-10.3 [facility] Comment on above: Performed By: #### O SHENA, UA #### [address] Carbon dioxide, total [Moles /volume] in Serum or PlasmaOrdered By: Nikhil Quiñones on 01-08-2024 CO2 [Moles/Vol] 27.6 mmol/L Normal 21.0-31.0 [facility] Comment on above: Performed By: #### O SHENA, UA #### [address] Cepheid COVID PCR Negativeon 01-08-2024 SARS-CoV-2 (COVID-19) RNA MARICEL+probe Ql (Unsp spec) Negative Normal Negative [facility] Comment on above: Result Comment: This is a duplicate Cepheid Xpert Xpress CoV-2/Flu/RSV Plus RNA by RT-PCR result to be used for statistical tracking purpose only. PERFORMED BY: [place] [address] PATHOLOGIST 21 DEAL[employer] LARISSA GUERRA M.D. Performed By: #### O SHENA, UA #### [address] Chlamydia/GC Amplificationon 01-08-2024 Chlamydia Trachomotis, MARICEL Negative Normal Negative [facility] Comment on above: Order Comment: Name Collection Type:: Clean-Voided Midstream Performed By: #### A DDONUAPLUS, AMNISURE-, OBUDS #### [address] Neisseria Gonorrhoeae, MARICEL Negative Normal Negative [facility] Comment on above: Order Comment: Name Collection Type:: Clean-Voided Midstream Result Comment: Perf ormed at: =G - [facility] [id number] Pattern Checker: Katherine Coleman MD, Phone: [phone] PERFORMED BY: [place] [address] PATHOLOGIST 21 DEALER LARISSA GUERRA M.D. Performed By: #### A DDONUAPLUS, AMNISURE-, OBUDS #### [place] [address] [place] Chloride [Moles/volume] in S karla or PlasmaOrdered By: Nikhil Quiñones on 01-08-2024 Chloride [Moles/Vol] 102 mmol/L Normal 98-107 [facility] Comment on above: Performed By: #### O BUDS, UA #### [address] Color of Urine by AutoOrdere d By: Nikhil Quiñones on 01-08-2024 Color (U) Yellow Normal Yellow [facility] Comment on above: Order Comment: Name Collection Type:: Clean-Voided Midstream Performed By: #### O BUDS, UA #### [address] Complete Blood Count Auto Di ffon 01-08-2024 Mean Corpuscular HGB Conc 33.5 g/dL Normal 32.0-35.0 [facility] Comment on above: Performed By: #### O BUDS, UA #### [place] [address] [place] Monocytes/100 WBC (Bld) 21.47 % High 0.00-20.00 [facility] Comment on above: Result Comment: For adults in ED, MDW > 20.0 may be associated with a higher risk of sepsis during the first 12 hrs of hospital admission Performed By: #### O BUDS, UA #### [place] [address] [place] NRBC% 0.1 /100{WBC} Normal 0-0.5 [facility] Comment on above: Performed By: #### O BUDS, UA #### [place] [address] [place] Creatinine [Mass/volume] in Serum or PlasmaOrdered By: Nikhil Quiñones on 01-08-2024 Creatinine [Mass/Vol] 0.63 mg/dL Normal 0.60-1.20 [facility] Comment on above: Performed By: #### O KALLIE CHATTERJEE #### [address] Erythrocyte distribution wid th [Ratio] by Automated countOrdered By: Nikhil Quiñones on 01-08-2024 Erythrocyte distribution width (RBC) [Ratio] 15.2 % Normal 11.9-15.3 [facility] Comment on above: Performed By: #### O SHENA, UA #### [address] Erythrocytes [#/volume] in B lood by Automated countOrdered By: Nikhil Quiñones on 01-08-2024 RBC (Bld) [#/Vol] 4.43 10*6/uL Normal 3.60-5.00 [facility] Comment on above: Performed By: #### O KALLIE CHATTERJEE #### [address] Fungal Smearon 01-08-2024 Fungal Smear Fungus Smear Results No Yeast Like Elements Seen No Fungal Like Elements Seen ---- Trichomonas Screen No Trichomonas Seen Trich Reference Reference range = None Seen PERFORMED BY: [place] [address] PATHOLOGIST 21 DEALER LARISSA GUERRA M.D. Normal [facility] Comment on above: Performed By: #### A DDONUAPLUS, AMNISURE-, OBUDS #### [address] Genital Cultureon 01-08-2024 Genital Culture No More GC Specimen not tested for Neisseria gonorrheae ORGANISM: Anca albicans (O:CANALB) Quantity of Growth Moderate Growth ORGANISM: Streptococcus pyogenes Grp A (O:A) Comments Organism Not Routinely Tested for Susceptibilities Quantity of Growth Moderate Growth ORGANISM: Gardnerella vaginalis (O:GARVAG) Comments Organism Not Routinely Tested for Susceptibilities Quantity of Growth Heavy Growth PERFORMED BY: [place] [address] PATHOLOGIST 21 DEALER LARISSA GUERRA M.D. Normal [facility] Comment on above: Performed By: #### A DDONUAPLUS, AMNISURE-, OBUDS #### [place] [address] [place] Glucose [Mass/volume] in Ser um or PlasmaOrdered By: Nikhil Quiñones on 01-08-2024 Glucose [Mass/Vol] 90 mg/dL Normal 70-100 [facility] Comment on above: ADA recommended refe rence rangeRandom Glucose Reference Range is dependent on time and content of last meal. Glucose of more than 200 mg/dL in a nonstressed, ambulatory subject supports the diagnosis of Diabetes Mellitus. Result Comment: [place] om Glucose Reference Range is dependent on time and content of last meal. Glucose of more than 200 mg/dL in a nonstressed, ambulatory subject supports the diagnosis of Diabetes Mellitus. ADA recommended reference range Performed By: #### O SHENA UA #### [address] Hematocrit [Volume Fraction] of Blood by Automated countOrdered By: Nikhil Quiñones on 01-08-2024 Hematocrit (Bld) [Volume fraction] 36.5 % Normal 34.0-46.4 [facility] Comment on above: Performed By: #### O SHENA UA #### [address] Hemoglobin [Mass/volume] in BloodOrdered By: Nikhil Quiñones on 01-08-2024 Hemoglobin (Bld) [Mass/Vol] 12.2 g/dL Normal 11.8-15.4 [facility] Comment on above: Performed By: #### O SHENA UA #### [address] Hepatic Panelon 01-08-2024 Albumin [Mass/Vol] 4.4 g/dL Normal 3.5-5.7 [facility] Comment on above: Performed By: #### O SHENA, UA #### [facility] [address] Bilirubin,Indirect 0.3 mg/dL Normal [facility] Comment on above: Performed By: #### O SHENA, UA #### [facility] [address] Bilirubin.indirect [Mass/Vol] 0.00 mg/dL Low 0.03-0.18 [facility] Comment on above: Result Comment: If t he DBIL is less than 0.1, IBIL is not able to be calculated. Performed By: #### O SHENA, UA #### [facility] [address] INR in Platelet poor plasma by Coagulation assayOrdered By: Nikhil Quiñones on 01-08-2024 INR Coag (PPP) [Relative time] 1.2 {INR} Normal [facility] Comment on above: INR Therapeutic Rang e A) Pre- and Peroperative OAT started two weeks before surgery. NOT HIP SURGERY: 1.5 - 2.5 HIP SURGERY: 2 - 3B) Primary and secondary prevention of venous THROMBOSIS: 2 - 3C) Active venous thrombosis, pulmonary embolismand prevention of recurrent venous thrombosis: 2 - 3D) Prevention of arterial thromboembolismincluding patients with mechanical heart valves: 3 - 4.5 Result Comment: INR Therapeutic Range A) Pre- and Peroperative OAT started two weeks before surgery. NOT HIP SURGERY: 1.5 - 2.5 HIP SURGERY: 2 - 3 B) Primary and secondary prevention of venous THROMBOSIS: 2 - 3 C) Active venous thrombosis, pulmonary embolism and prevention of recurrent venous thrombosis: 2 - 3 D) Prevention of arterial thromboembolism including patients with mechanical heart valves: 3 - 4.5 Performed By: #### O SHENA, UA #### [facility] [address] Ketones Auto test strip (U) [Mass/Vol]Ordered By: Nikhil Quiñones on 01-08-2024 Ketones (U) [Mass/Vol] Negative Negative [facility] Lactate [Moles/volume] in Se rum or PlasmaOrdered By: Nikhil Quiñones on 01-08-2024 Lactate [Moles/Vol] 0.6 mmol/L Normal 0.5-2.2 [facility] Comment on above: Result Comment: PERF ORMED BY: [place] [address] PATHOLOGIST 21 DEALER LARISSA GUERRA M.D. Performed By: #### A MNISURE- #### [place] [address] [place] Leukocytes [#/volume] correc arminda for nucleated erythrocytes in Blood by Automated counOrdered By: Nikhil Quiñones on 01-08-2024 WBC corrected for nucl RBC Auto (Bld) [#/Vol] 7.6 10*3/uL 3.8-11.6 [facility] Leukocytes [#/volume] in Blo od by Automated countOrdered By: Nikhil Quiñones on 01-08-2024 WBC (Bld) [#/Vol] 7.6 10*3/uL Normal 3.8-11.6 [facility] Comment on above: Performed By: #### O BUDS, UA #### [place] [address] [place] Lipase [Enzymatic activity/v olume] in Serum or PlasmaOrdered By: Nikhil Quiñones on 01-08-2024 Lipase [Catalytic activity/Vol] 10.0 U/L Low 11.0-82.0 [facility] Comment on above: Result Comment: PERF ORMED BY: [place] [address] PATHOLOGIST 21 DEALER LARISSA GUERRA M.D. Performed By: #### O BUDS, UA #### [place] [address] [place] Lymphocytes [#/volume] in Bl ood by Automated countOrdered By: Nikhil Quiñones on 01-08-2024 Lymphocytes (Bld) [#/Vol] 1.1 10*3/uL Normal 1.00-4.8 [facility] Comment on above: Performed By: #### O BUDS, UA #### [place] [id number] [place] Lymphocytes/100 leukocytes i n Blood by Automated countOrdered By: Nikhil Quiñones on 01-08-2024 Lymphocytes/100 WBC (Bld) 14.9 % Normal . [facility] Comment on above: Performed By: #### O SHENA, UA #### [facility] [address] [place] [address] MCH [Entitic mass] by Automa arminda countOrdered By: Nikhil Quiñones on 01-08-2024 MCH (RBC) [Entitic mass] 27.6 pg Normal 24.7-34.3 [facility] Comment on above: Performed By: #### O SHENA, UA #### [facility] [address] [place] [address] MCHC Auto (RBC) [Mass/Vol]Or dered By: Nikhil Quiñones on 01-08-2024 MCHC (RBC) [Mass/Vol] 33.5 g/dL 32.0-35.0 [facility] MCV [Entitic volume] by Auto mated countOrdered By: Nikhil Quiñones on 01-08-2024 MCV (RBC) [Entitic vol] 82.4 fL Normal 80-100 [facility] Comment on above: Performed By: #### O SHENA, UA #### [address] Monocyte distribution width [Entitic volume] in Blood by AutomatedOrdered By: Nikhil Quiñones on 01-08-2024 Monocyte distribution width Auto (Bld) [Entitic vol] 21.47 % High 0.00-20.00 [facility] Comment on above: For adults in ED, MD W > 20.0 may be associated with a higher risk of sepsis during the first 12 hrs of hospital admission Neutrophils [#/volume] in Bl ood by Automated countOrdered By: Nikhil Quiñones on 01-08-2024 Neutrophils (Bld) [#/Vol] 5.8 10*3/uL Normal 1.8-7.7 [facility] Comment on above: Performed By: #### O SHENA, UA #### [facility] [address] [place] [address] Nitrite Test strip Ql (U)Ord ered By: Nikhil Quiñones on 01-08-2024 Nitrite Ql (U) Negative Negative [facility] No Panel InformationOrdered By: Nikhil Quiñones on 01-08-2024 Estimated GFR (CKD-EPI) > 60.0 mL/Min [facility] Creatinine Clearance (Chem 127.27 [facility] Nucleated erythrocytes [Pres ence] in Blood by Automated countOrdered By: Nikhil Quiñones on 01-08-2024 Nucleated RBC Auto Ql (Bld) 0.1 /100{WBC} 0-0.5 [facility] Partial Thromboplastin Timeo n 01-08-2024 aPTT Coag (Bld) [Time] 35.0 s Normal 25.1-36.5 [facility] Comment on above: Result Comment: A he matocrit value greater than 55% may lead to inaccurate results in coagulation testing. Patients having hematocrit values >55% require a special collection tube for coagulation studies. Please contact the laboratory at [phone] for redraw instructions. PERFORMED BY: [place] [address] PATHOLOGIST 21 DEALER LARISSA GUERRA M.D. Performed By: #### O SHENA UA #### [facility] [address] [place] [address] [place] Platelet mean volume [Entiti c volume] in Blood by Automated countOrdered By: Nikhil Quiñones on 01-08-2024 Platelet mean volume (Bld) [Entitic vol] 8.5 fL Normal 6.3-10.7 [facility] Comment on above: Performed By: #### O SHENA UA #### [facility] [address] [place] [address] [place] Platelets [#/volume] in Bloo d by Automated countOrdered By: Nikhil Quiñones on 01-08-2024 Platelets (Bld) [#/Vol] 228 10*3/uL Normal 150-450 [facility] [facility] Comment on above: Performed By: #### O SHENA UA #### [place] [address] [place] Potassium [Moles/volume] in Serum or PlasmaOrdered By: Nikhil Quiñones on 01-08-2024 Potassium [Moles/Vol] 3.7 mmol/L Normal 3.5-5.1 [facility] Comment on above: Performed By: #### O KALLIE CHATTERJEE #### [facility] [address] Protein Auto test strip (U) [Mass/Vol]Ordered By: Nikhil Quiñones on 01-08-2024 Protein (U) [Mass/Vol] Negative Negative [facility] Protein [Mass/volume] in Ser um or PlasmaOrdered By: Nikhil Quiñones on 01-08-2024 Protein [Mass/Vol] 7.8 g/dL Normal 6.4-8.9 [facility] Comment on above: Performed By: #### O SHENA UA #### [address] Prothrombin time (PT)Ordered By: Nikhil Quiñones on 01-08-2024 PT Coag (PPP) [Time] 13.8 s High 9.0-12.9 [facility] Comment on above: A hematocrit value g reater than 55% may lead to inaccurate results in coagulation testing. Patients having hematocrit values >55% require a special collection tube for coagulation studies. Please contact the laboratory at [phone] for redraw instructions. Result Comment: A he matocrit value greater than 55% may lead to inaccurate results in coagulation testing. Patients having hematocrit values >55% require a special collection tube for coagulation studies. Please contact the laboratory at [phone] for redraw instructions. Performed By: #### O KALLIE CHATTERJEE #### [address] Serum globulin measurement b y calculation (mass/volume)Ordered By: Nikhil Quiñones on 01-08-2024 Globulin (S) [Mass/Vol] 3.4 g/dL [facility] Comment on above: Performed By: #### O KALLIE CHATTERJEE #### [address] Serum or plasma albumin/glob ulin mass ratioOrdered By: Nikhil Quiñones on 01-08-2024 Albumin/Globulin [Mass ratio] 1.3 {ratio} [facility] Comment on above: Performed By: #### O KALLIE CHATTERJEE #### [facility] [address] Serum or plasma anion gap de terminationOrdered By: Nikhil Quiñones on 01-08-2024 Anion gap [Moles/Vol] 12.1 mmol/L Normal 6.0-15.0 [facility] Comment on above: Performed By: #### O SHENA UA #### [address] Serum or plasma non-glucuron idated bilirubin measurement (mass/volume)Ordered By: Nikhil Quiñones on 01-08-2024 Bilirubin.indirect [Mass/Vol] 0.3 mg/dL [facility] Sodium [Moles/volume] in Ser um or PlasmaOrdered By: Nikhil Quiñones on 01-08-2024 Sodium [Moles/Vol] 138 mmol/L Normal 136-145 [facility] Comment on above: Performed By: #### O SHENA UA #### [address] Specific gravity Auto test s trip (U) [Rel density]Ordered By: Nikhil Quiñones on 01-08-2024 Specific gravity (U) [Rel density] 1.013 1.001-1.030 [facility] Trichomonas vaginalis detect ion by wet preparationOrdered By: Nikhil Quiñones on 01-08-2024 T. vaginalis Wet prep Ql (Unsp spec) [facility] Urea nitrogen [Mass/volume] in Serum or PlasmaOrdered By: Nikhil Quiñones on 01-08-2024 Urea nitrogen [Mass/Vol] 7 mg/dL Normal 7-25 [facility] Comment on above: Performed By: #### O SHENA UA #### [address] Urinalysison 01-08-2024 Appearance (U) Clear Normal Clear [facility] Comment on above: Order Comment: Name Collection Type:: Clean-Voided Midstream Performed By: #### O SHENA UA #### [address] Bilirubin,Urine Negative Normal Negative [facility] Comment on above: Order Comment: Name Collection Type:: Clean-Voided Midstream Performed By: #### O BUDS, UA #### [address] Glucose Ql (U) Normal Normal Normal [facility] Comment on above: Order Comment: Name Collection Type:: Clean-Voided Midstream Performed By: #### O BUDS, UA #### [place] [address] [place] Ketones Ql (U) Negative Normal Negative [facility] Comment on above: Order Comment: Name Collection Type:: Clean-Voided Midstream Performed By: #### O BUDS, UA #### [place] [address] [place] Leukocyte esterase Test strip Ql (U) Negative Normal Negative [facility] Comment on above: Order Comment: Name Collection Type:: Clean-Voided Midstream Performed By: #### O BUDS, UA #### [place] [address] [place] Nitrite,Urine Negative Normal Negative [facility] Comment on above: Order Comment: Name Collection Type:: Clean-Voided Midstream Performed By: #### O BUDS, UA #### [place] [address] [place] Occult Blood,Urine Negative Normal Negative [facility] Comment on above: Order Comment: Name Collection Type:: Clean-Voided Midstream Result Comment: PERF ORMED BY: [place] [address] PATHOLOGIST [employer] LARISSA GUERRA M.D. Performed By: #### O BUDS, UA #### [place] [address] [place] Protein,Urine Negative Normal Negative [facility] Comment on above: Order Comment: Name Collection Type:: Clean-Voided Midstream Performed By: #### O BUDS, UA #### [address] Specificy [place],Urine 1.013 Normal 1.001-1.030 [facility] Comment on above: Order Comment: Name Collection Type:: Clean-Voided Midstream Performed By: #### O BUDS, UA #### [facility] [address] Urobilinogen,Urine Normal Normal Normal [facility] Comment on above: Order Comment: Name Collection Type:: Clean-Voided Midstream Performed By: #### O BUDS, UA #### [facility] [address] Urine clarity by refractomet ry automatedOrdered By: Nikhil Quiñones on 01-08-2024 Clarity Refractometry automated (U) Clear Clear [facility] Urine glucose measurement by automated test strip (mass/volume)Ordered By: Nikhil Quiñones on 01-08-2024 Glucose Auto test strip (U) [Mass/Vol] Normal mg/dL Normal [facility] Urine hemoglobin detection b y automated test stripOrdered By: Nikhil Quiñones on 01-08-2024 Hemoglobin Auto test strip Ql (U) Negative Negative [facility] Urine leukocyte esterase det ection by automated test stripOrdered By: Nikhil Quiñones on 01-08-2024 Leukocyte esterase Auto test strip Ql (U) Negative Negative [facility] Urine pH measurement by auto mated test stripOrdered By: Nikhil Quiñones on 01-08-2024 pH (U) 7.0 [pH] Normal 5.0-9.0 [facility] Comment on above: Order Comment: Name Collection Type:: Clean-Voided Midstream Performed By: #### O BUDS, UA #### [facility] [address] Urobilinogen Auto test strip (U) [Mass/Vol]Ordered By: Nikhil Quiñones on 01-08-2024 Urobilinogen (U) [Mass/Vol] Normal mg/dL Normal [facility] Coding Summaryon 12-28-2023 Coding Summary HTMLBase 64 ZoncdhapCUs8vKf+PGhlYWQ+P C9JYMUvU14hvYHlgG1sI1EOTB lOSywgQVBQTElOSyIgbmFtZT1 kaXNjZXJu IC8+WM7nSOHeAzqvoBDzu8Y3g AX1R09xzn9yDGxnuUI6YLYwDl Fnvxjcd2bxvPg2ILezNaqrHaP t XSUwxZ81PLT9tI03Vr05tUIon QZtq7gptTy2NoRkHTOaEPS7iQ qfDWhjz3VdOLJqS84xgOSti6I 6 RAAjvOdejLBoYiTweXL2zB9mC Utctljoh0uymnorBlz0qs51qO Rav5J5zBI4L3KtmbE2LYNksTV g OzvjbLPRzO1yvbepq5jrnsjgU aLiADLxSWz0XXp6EIGepDfrTt QqRD49HZN4MLLotjQlV5QqTBZ s sOwuRsO9m8V2Uv2WS6WFIpbvX 1VNTUFSWTwvdGQ+UU29yz35E0 ToRdpqXnu8TRRtPML3dHT3xA5 n EXBbXFwvk8S6xRS0L8YarpAjl z7ws9bkYMKxEGszS52rtRKsb1 J4UPXylLV4CUComLldKbJgeN9 3 Oyc+MOYduDnkb5JwDrglp6jja 9ckrSa0VnsqDOFkilRmiWhcUC H4x5BlJn5kZEEnrWQ6pDZ9fE9 i YhRgKdK9YGvhQ194SkStfNIvC zwnA94iR4QwcWK+HOGfGlc8MW FedTilJY5dH9ChGYQupyglvIL m bRgxZP0gBJMyqniwEWDxxW8wU RYqW8b8ZyCdOvV6KNykR2CaWI QuunmrQf06mF4oZoFmLxJ3WVe u S3QcvzA2FFOsmONzQHcmKRF2Q 65gf2B0QARmXRRnBOS5yQK3vA 1hbGlnbjogbGVmdDsgdmVydGl j WCxmSVsxV860VNFkrJmqIrFtT GluZyBEYXRlOiAgMDcvMTEvMj AyNDwvdGQ+BXTcKYO7pPjhMZN n uJUgRHyuZt3vlSnrgKxmIA2kF SHjsklmTKBnuU2kOIOmkJNyfA owVE0gGCMxmvduo736RqTkWQM 0 CBHbzCBjP2TteY6vOkYvIZOpH LMrA4ZhpNZbJZavC678WQfmUi Y4LWCxgcYyN1XoNAWiiQpiBzO 0 e4W6Pv6Xo4MefeuzC6LhrDXsH yEwHtovNOp8G4BqYrkniOC+PC 53KQOmWS30VXj0FKC3jCzsDCc i WJGkI5QdzL1oPkYlQGTdSMMlX yc+PHRhYmxlIHdpZHRoPScxMD RpMkGitQevQC0kIu1yHDErDFP v iNedxNMlHtIbx3twFAJjMOooQ U6mtCccB5UtaOT6VAOim2c3Ib 83O36kK2XnsUQ+BBHbnYM9uPJ 0 zH6vRdWgPrU3IPyqO051IjLhb RMgGtaqx5qql8ykiXe2BfA4LE GdinJkfVyqYKZ3k7QfGu46H34 s IHdpZHRoPSIxNSUiIHZhbGlnb c3gfS8kSj5+NKYxwFG7uII8pV 1uBoVdSjW4FVjlT634MbOomIK v Vmfzt0yqb8ityQr0YuLqHNDci vGnyWjdLOU0l1TgVk75V6CbfC uyj7MjPsz1ep72gPNdi3H2jKV 9 T6NeDMTnufagdEDgyLhnNL0jP GOcfaulNYSwpQ3zZLVpB6q0Ds KmWxU2NLmmH0EnygZ7KBAoaFQ g XQWhgUBFsO8vllspj3bcsjimC gBzDIJeYNi2SVc4XZFoxYaxNt FkGKP6GtG9DYM2mNTwzM8ezZn n tadbxG5pKrz+LTA3hEPgiEXIK Y4rBdudeCX+PDUfOQE7cAqgTK pkBOQkeG1oPDEaV0e9KtYqYaV 1 QWwgP7OotcV1ISHniONrLYLah PYCnL9rpkibr8dbtgqfLjEeZM CpVLo8PBl6KYUbmRgvMwMjOGR 0 PfR1LLG8hZShaC1xqYefstjsv G9wOyc+MpfqiQreNYR2PHb2U3 TtLiu2IPXrvNxnKU8fzMUlHCz u Rz9rcNiuxGgiYJ9uMVXazovrg 273QvBek9buOLAnaLKkSTtmLU N8J05au2H8FJHvDKVgJTT6kTG 4 lZ5azHrkfbjtnRNmcWbasxBsx SajCLvvZEloW946BNKsgDyeJm KeWGq1I5JwHyy2VEScfAifIZ8 n sQDkJIcaYo5arFkzlZsuKY6gC ZQhypfgf664MaDct6tcAGEvkS IgQUcgOQS4Y35bg7J2ZQTzRHJ w MEP0sZZ9pK3irAtdohbqdRJeq NswyxOsuAofUHssERvuD733WL VkxVvoWoAxvSr5W3HfBwn7SEP z uOzfBA8lvUIbRDadOp5ncNvkp EewMD3sYWGueoiyl330MxZdc5 sdFDFlgLQpKYzzKVA4A89vl6K 6 XMQqUZDrPUP2jHK3dC2mpXihk jogbGVmdDsgdmVydGljYWwtYW rzO389JFNjqUysVmYtkFphbfS g VLcjEMv9U6BpRjbbyMM+PC90Y UOwLT77zTMvvRIfi1smbCu3Hn GhOPJoZUZ7bOskRErre6PaLWR t R40xiQSln7A9KSGbuAesuBOrK tGjwIH9yI2wELzbejuwj6cnfx deHrnsw9xstn51yQ26U66yAXd p GSFpDZKwHUVuEWYawMyllk1vg G9wIi8+LJRceIX0iSC3bF8oZB RyHtU5AFruD652XjXxmPBhUnd j t6ror4qsxFh9BaY1ISYgqxDbn WrcAJU2p1TrCv35R27vSGbqLM EcMMGyZVEbBXHjbMecws0vdV7 w Ii8+ZOGghOG7iCZ2vG0lJdHsA iQ3LFrkY586LzIqbPZrQqfnG4 6uT4TqaAX+GHFwAch8FNBcoFy s CO5sbHJlJYrvYi4eYJR6DzXqS wLaVDuzH0QoVUObozmmlntnhA T2WKVrSLYroK23Sv9fxJeeOXK w bNWOkQ8ibwcty9gsjtikVvXqQ TIxITi5UEk2BKMqkOkwKpLsLC K6LlK9NLA7fAXoeE7ffLipzyh g iE0nY0HcONPjkvacZi52dD9nB aWtFqH3ILadYkt+Q3pTM49FWE FKUGDTGD4OGNEUFBoXJhwnmGA + HQHiRJV1wCreJSyxXNWriG3oF ZJfR6w3OeVfSgH1VTkvR2ShGY XmewtmVc60aG1iPjCnMcJ4IKa u B3EaanZ6YZVwvVPdCMrmMEV1G 76ie9G6FSZpYGGdIQW2xUY4oM 1hbGlnbjogbGVmdDsgdmVydGl j SYnoTRjwP833YWLyuGggHzJtQ aF7TyX2AAC7G3UvNlo5WUPfqH ivWF8fzWNrAOwlQh8tzIttpMa g VG3tMINijiwlBHAwmO2sIZGwz FEmdEbtWL3hMHDdjphuv029Ob KqHMV2MDGhfMUmX1VczA3iQnP j FQVyHTTsI7SuoFOyPCikU942O KbyBbC5DSOorsJgA9YvQGPjrU cgQqQ5a8N9Ax2hPWEQRASajgd v dGQ+IDBuGOG9lExpTMqbGTKxt I5sUHAtL4l0TbVnDxL1ZZcsK2 PjVNLjkbqtHp79tC3aXoPqHlP 1 UXowA8FrqlK2SCUqgQVtOXrmS QU4Y32tt3L4GPPxLJSdTHM4pI T1eM9fiOujmoyllRZlfCunwwS y bRrkAIkuCBjtY905AOJzmThzB kZFTUFMRTwvdGQ+TPTzGSY6iT jvTAraTTSdrW4dTBFpA0f1FiE w UeX8NHhcW5XhFKNqfiywYp78y S7aItBzFqV3SYdpU8WagyQ3NS MkwHVeVBhdMRN7M25up6N7CAS w WDDdQLG5wTU1oC2wjNnwecoob GVmdDsgdmVydGljYWwtYWxpZ2 32EZNqhExgNxIgXXThIO9rpOz v dGQ+KP66ld79L9XsQowbBkp9S XQzUIH2iSU5qG2wZBEqHGmzs8 Q4wVT7S1NtawZiyl1xv5rpAOK z LIehS95xgHUtq0E7FTTssWU3Y YMmrNceViGidR19Nyv+PGNvbG kds9XsRuity8drc8rcpOy5HvK w XBTxuvJwoPryAHM8h6VoZr10V 29sIHdpZHRoPSIzMCUiIHZhbG vysw1ltS2bLn0+XRAcaCK0xRX 0 nV9oIzWuHhS3MWycE853PiAok NQcRbdhs6acg5rbmLk2LxOiQL XpbvTxvTtbMXK5i7PzLx14S1H v kFliq4YnVcy1fc42pLBfy1O3l PO4O4VmTZBecgyabIShcYhiBA 8oBMJrhdvnWYOilS6nATOvG2q 0 WcGjPiV8NSceT1MvmuZ6CGMpe BVrUJIziUWSpX8xowaov0oxed zoJzFsHWScRZq3FLg1FNRcfVh u BeQhNIR5HwW2KTP0dZWqsH1uu NtciiogtI8yGuj+TNj7l0otsR VjRF3aoVJ7ZU50OJ63yLNdf2P 5 bQU0D3QaHHAxvtsdybuhyNH1X CFsIQBnrX59Rg3fbNjvCu9dDW PlGOV7JXIjoCKuR8TvmV8vUgK j LIFqMCTnC8ObiAZhXIkrB943W TsdLmU0XBUbsuGhB7GqGNAvjH tsMpH5t0S0Dk4ZJK58XB87VV4 8 eEUxp9O6dXN4X8ZqCYWqngrzp xezlLH4GCZwEKDdfN78Pv7agG ooHx7wHGJkMNE2EGVokMPtI1I v eM0gFxGhZECjQGDgX2IubWQaY NxvC490WArtCnU3PNHejcPxP1 SiTXCaaWpxNaC4u1H6Kn5WXe5 6 GQ72TM70sHIyd6O8uGT2X5NkQ JVfyocklowjeOB5ZKIlQVDkjZ 82Mj5fwAxpUp3zFWGuYIJ0CYU p vKTwS7SomA3sErLcSTYpNUGuD 8TpdLEqYQnaX794NHrfZaK6UE DpjzDuO9ExFLYduTdbWkQ5q0F 7 Ct5XQFwlqzv1V0NrVqcuhXD+P P94GESuVM15aAQuyQTuv0vdrX j6AvPaWTZkJCF9iVluIVnkt4Y k ZXI (more content not included)... Normal [facility] .Auto Diff 12-18-2023 Auto [place] % 8 % Normal -12 [facility] Comment on above: Performed By: #### 1 [id number], [id number], [id number], 50712094, [id number], [id number] #### [facility] (DEFAULT) [address] [place] [address] 65845 Baso Abs# 0.0 x10 Normal 0.0-0.2 [facility] Comment on above: Performed By: #### 1 [id number], [id number], 8915977900, 02048319, 7034353024, [id number] #### [facility] (DEFAULT) [address] [place] [address] 48207 Basophils/100 WBC (Bld) 0.5 % Normal 0.2-2.0 [facility] Comment on above: Performed By: #### 1 [id number], [id number], 1818126697, 89344312, 7301053644, 7001851 #### [facility] (DEFAULT) [address] [place] [address] 26178 Eos Abs# 0.0 x10 Normal 0.0-0.4 [facility] Comment on above: Performed By: #### 1 [id number], [id number], 7419635984, 89089068, 1259165824, 5615089 #### [facility] (DEFAULT) [address] [place] [address] 87837 Eosinophils/100 WBC (Bld) 0.5 % Low 0.9-4.0 [facility] Comment on above: Performed By: #### 1 [id number], 8145628095, 1829687734, 83849667, 4865795584, 4838637 #### [facility] (DEFAULT) [address] [place] [address] 86334 Lymph Abs# 1.9 x10 Normal 1.3-2.9 [facility] Comment on above: Performed By: #### 1 [id number], 9968297161, 0620300896, 00681185, 4270840620, 1059990 #### [facility] (DEFAULT) [address] [place] [address] Lymphocytes/100 WBC (Bld) 32 % Normal 14-48 [facility] Comment on above: Performed By: #### 1 [id number], 7492723135, 7635167651, 18524445, 4553371572, 4048702 #### [facility] (DEFAULT) [address] [place] [address] [place] Abs# 0.4 x10 Normal 0.0-0.8 [facility] Comment on above: Performed By: #### 1 [id number], 5812444512, 5470419490, 69142728, 5586717024, 8132710 #### [facility] (DEFAULT) [address] [place] [address] Neut Abs# 3.5 x10 Normal 1.5-9.2 [facility] Comment on above: Performed By: #### 1 [id number], 8990515179, 1065330748, 02880668, 9712872006, 1522727 #### [facility] (DEFAULT) [address] [place] [address] Neutrophils/100 WBC (Bld) 59 % Normal 44-88 [facility] Comment on above: Performed By: #### 1 [id number], 4692576378, 7655256017, 66828722, 1231567188, 2723567 #### [facility] (DEFAULT) [address] [place] [address] CBC w/ Auto Diffon 4 Erythrocyte distribution width (RBC) [Ratio] 15.9 % High 11.5-15.0 [facility] Comment on above: Performed By: #### 1 [id number], 2571278032, 3468100714, 72479756, 8218413722, 1233082 #### [facility] (DEFAULT) [address] [place] [address] Hematocrit (Bld) [Volume fraction] 34.4 % Normal 33.7-40.4 [facility] Comment on above: Performed By: #### 1 [id number], 3840848801, 9585023930, 07030685, 1572531189, 6639069 #### [facility] (DEFAULT) [address] [place] [address] 60376 Hemoglobin (Bld) [Mass/Vol] 11.3 g/dL Normal 11.3-15.9 [facility] Comment on above: Performed By: #### 1 [id number], 7670545450, 0363529296, 41817282, 5675485101, 3667109 #### [facility] (DEFAULT) [address] [place] [address] Man Diff? Auto Invalid Interpretation Code [facility] Comment on above: Performed By: #### 1 [id number], 1237302780, 0499096067, 35340716, 9650898959, 8396636 #### [facility] (DEFAULT) [address] [place] [address] 98336 MCH (RBC) [Entitic mass] 28 pg Normal 24-34 [facility] Comment on above: Performed By: #### 1 [id number], 7861829878, 1752864108, 06834982, 2733532603, 8427355 #### [facility] (DEFAULT) [address] [place] [address] 11233 MCHC (RBC) [Mass/Vol] 33 g/dL Normal 26-37 [facility] Comment on above: Performed By: #### 1 [id number], 5558327381, 5686364836, 67383662, 8682872107, 4021505 #### [facility] (DEFAULT) [address] [place] [address] 93827 MCV (RBC) [Entitic vol] 84 fL Normal 81-100 [facility] Comment on above: Performed By: #### 1 [id number], 7518155846, 5797831005, 31602720, 4490275170, 1960652 #### [facility] (DEFAULT) [address] [place] [address] 36254 Platelet 233 x10 Normal 138-427 [facility] Comment on above: Performed By: #### 1 [id number], 9898757211, 8925635020, 25908600, 4891883759, 7203205 #### [facility] (DEFAULT) [address] [place] [address] 06156 Platelet mean volume (Bld) [Entitic vol] 8.7 fL Normal 6.3-10.2 [facility] Comment on above: Performed By: #### 1 [id number], 0974029514, 1853120531, 72002586, 5556065289, 6779742 #### [facility] (DEFAULT) [address] [place] [address] RBC 4.10 x10 Normal 3.70-5.30 [facility] Comment on above: Performed By: #### 1 [id number], 1917732280, 8217287716, 73296264, 0724292226, 1867974 #### [facility] (DEFAULT) [address] [place] [address] 53115 WBC 5.8 x10 Normal 3.5-10.5 [facility] Comment on above: Performed By: #### 1 [id number], 1705467698, 6915150168, 84647257, 0257711427, 7744196 #### [facility] (DEFAULT) [address] [place] [address] 71136 CMP Standardon 12-18-2023 eGFR Non AA >60 Invalid Interpretation Code [facility] Comment on above: Performed By: #### 1 [id number], 6863675460, 6644243532, 45993966, 3102330312, 1226659 ####[facility] (DEFAULT)[address] [place] [address] 97673 eGFR AA >60 Invalid Interpretation Code [facility] Comment on above: Performed By: #### 1 [id number], 7051722292, 0238441207, 41693317, 0984885117, 5700552 ####[facility] (DEFAULT)[address] [place] [address] 25195 Albumin [Mass/Vol] 4.3 g/dL Normal 3.5-5.0 [facility] Comment on above: Performed By: #### 1 [id number], 3128247882, 0140868209, 70675781, 6128600725, 1151964 ####[facility] (DEFAULT)[address] [place] [address] 12166 Albumin/Globulin [Mass ratio] 1.2 {ratio} Low 1.4-2.6 [facility] Comment on above: Performed By: #### 1 [id number], 3545486833, 3332785482, 96516025, 1797649589, 8560054 ####[facility] (DEFAULT)[address] [place] [address] 03255 Alk Phos 44 IU/L Normal 32-91 [facility] Comment on above: Performed By: #### 1 [id number], 6219224342, 4017347171, 81780821, 6322115486, 4652768 ####[facility] (DEFAULT)[address] [place] [address] 34860 ALT [Catalytic activity/Vol] 13.0 U/L Low 14.0-54.0 [facility] Comment on above: Performed By: #### 1 [id number], 3874974114, 5258248933, 40875672, 8064822523, 9752371 ####[facility] (DEFAULT)[address] [place] [address] 68321 Anion gap [Moles/Vol] 11.1 mmol/L Normal 5.0-19.0 [facility] Comment on above: Performed By: #### 1 [id number], 9584347878, 4204418285, 68809103, 6827714969, 7074433 ####[facility] (DEFAULT)[address] [place] [address] 80833 AST [Catalytic activity/Vol] 17 U/L Normal 15-41 [facility] Comment on above: Performed By: #### 1 [id number], [id number], [id number], 93854062, [id number], [id number] ####[facility] (DEFAULT)[address] [place] [address] 96046 Bili Total 0.4 mg/dL Normal 0.3-1.2 [facility] Comment on above: Performed By: #### 1 [id number], [id number], [id number], 02420432, 5862788325, 3692368 ####[facility] (DEFAULT)[address] [place] [address] 17041 Calcium [Mass/Vol] 8.9 mg/dL Normal 8.9-10.3 [facility] Comment on above: Performed By: #### 1 [id number], [id number], [id number], 35742303, 3447244241, 4324984 ####[facility] (DEFAULT)[address] [place] [address] 80517 Chloride [Moles/Vol] 106 mmol/L Normal 101-111 [facility] Comment on above: Performed By: #### 1 [id number], [id number], 3135496385, 83777428, 9268710812, 2439445 ####[facility] (DEFAULT)[address] [place] [address] 67774 CO2 [Moles/Vol] 23 mmol/L Normal 21-32 [facility] Comment on above: Performed By: #### 1 [id number], [id number], 8204598087, 50273146, 9550944995, 4347951 ####[facility] (DEFAULT)[address] [place] [address] 55917 Creatinine [Mass/Vol] 0.67 mg/dL Normal 0.60-1.30 [facility] Comment on above: Performed By: #### 1 [id number], [id number], 4985048689, 76620448, 5072532185, 0244660 ####[facility] (DEFAULT)[address] [place] [address] 69266 Globulin (S) [Mass/Vol] 3.4 g/dL Normal 1.5-4.3 [facility] Comment on above: Performed By: #### 1 [id number], [id number], 5291051904, 86198999, 9604225566, 1781076 ####[facility] (DEFAULT)[address] [place] [address]39 Glucose [Mass/Vol] 93.0 mg/dL Normal 74.0-118.0 [facility] Comment on above: Performed By: #### 1 [id number], [id number], 7250712380, 18058627, [id number], 1763187 ####[facility] (DEFAULT)[address] [place] [address] 89589 Osmolality 272 mOsm/L Invalid Interpretation Code [facility] Comment on above: Performed By: #### 1 [id number], [id number], 4572903430, 49869640, 9336899913, 5012860 ####[facility] (DEFAULT)[address] [place] [address] 98279 Potassium [Moles/Vol] 3.1 mmol/L Low 3.6-5.1 [facility] Comment on above: Performed By: #### 1 [id number], 4952670296, 9059116343, 84295374, 4176324660, 2893267 ####[facility] (DEFAULT)[address] [place] [address] 20357 Protein [Mass/Vol] 7.7 g/dL Normal 6.5-8.1 [facility] Comment on above: Performed By: #### 1 [id number], 7303163694, 1222536486, 69705235, 1816731197, 6605064 ####[facility] (DEFAULT)[address] [place] [address] 73468 Sodium [Moles/Vol] 137.0 mmol/L Normal 136.0-144.0 [facility] Comment on above: Performed By: #### 1 [id number], 1062536140, 1339070161, 54466661, 5282603848, 5191018 ####[facility] (DEFAULT)[address] [place] [address] 63489 Urea nitrogen [Mass/Vol] 9 mg/dL Normal 8-26 [facility] Comment on above: Performed By: #### 1 [id number], 7631482810, 2284638450, 05410022, 0603898478, 7934634 ####[facility] (DEFAULT)[address] [place] [address] Urea nitrogen/Creatinine [Mass ratio] 13.4 mg/mg Normal 4.6-16.2 [facility] Comment on above: Performed By: #### 1 [id number], [id number], 1992238945, 80653483, 7845649642, 1765298 ####[facility] (DEFAULT)[address] [place] [address] CT Abdomen/Pelvis w/o Contra ston 12-18-2023 CT Abdomen/Pelvis w/o Contrast EXAMINATION: CT Abdomen/Pelvis w/o Contrast, 12/18/2023 5:40 PM EDT HISTORY: Abdominal Pain COMPARISON: 06/13/2022 TECHNIQUE: CT scan of the abdomen and pelvis was performed without IV contrast. CT dose reduction technique was used, including Automated Exposure Control. FINDINGS: Limited evaluation of the viscera/organs and vasculature without intravenous contrast. TUBES AND IMPLANTS: None. LOWER CHEST: Small hiatal hernia ABDOMEN and PELVIS ABDOMINAL WALL AND SOFT TISSUES: Unremarkable. BONES: Mild multilevel degenerative changes of the spine. No suspicious lesions. ARTERIES: Incompletely evaluated. No aortoiliac aneurysm VEINS: Incompletely evaluated. LYMPH NODES: Unremarkable. PERITONEUM/ RETROPERITONEUM: Small amount of free pelvic fluid BOWEL: Mild diverticulosis. No obstruction. APPENDIX: Unremarkable LIVER: No suspicious lesions. GALLBLADDER: Unremarkable. BILE DUCTS: Not dilated SPLEEN: Unremarkable. PANCREAS: Unremarkable. ADRENALS: Unremarkable. KIDNEYS/ URETERS: There is mild right hydronephrosis and hydroureter without definite obstructing stone identified. REPRODUCTIVE ORGANS: Unremarkable URINARY BLADDER: Unremarkable. IMPRESSION: 1. Mild right hydronephrosis and hydroureter without definite obstructing stone identified. 2. Small amount of free pelvic fluid. 3. Mild diverticulosis. 4. Small hiatal hernia. Final Dictated by: Vi Hancock MD Dictated DT/TM: 12/18/23 6:39 Signed (Electronic Signature): Vi Hancock MD 12/18/23 6:48 pm Technologist: DANN Morales [facility] ED Clinical Summaryon 2023 ED Clinical Summary [facility] - Emergency Department [address] [place] [address] ED Clinical Summary PERSON INFORMATION Name: BARBRA CLAROS Age: 28 Years Sex: FEMALE : 1995 MRN: Acct#: Visit Reason: Pelvic pain; FALL Arrival: 12/18/2023 16:55:10 Discharge: 12/18/2023 19:09:00 LOS: 000 02:14 Check In: 12/18/2023 16:55:10 Checkout:12/18/2023 19:09:00 Address: [address] [place] [id number] PCP: Provider, None PROVIDER INFORMATION Provider Role Assigned Unassigned Anjel Yates MD ED Provider 12/18/2023 16:57:27 Viola Esqueda FRONT END SOFTWARE DEVELOPER Nurse 12/18/2023 17:05:39 VITALS INFORMATION Vital Sign Triage Latest Temperature Tympanic Temperature Temporal Artery Pulse Rate O2 Sat 98 % 98 % Respiratory Rate 16 br/min 16 br/min Blood Pressure /71 mmHg /71 mmHg MEDICAL INFORMATION Medications Given: Medication Dose Route Sodium Chloride 0.9% intravenous solution 1,000 mL 1000 mL Initial Volume 500 mL/hr IV Left Antecubital Fossa ondansetron 4 mg Oral acetaminophen (Tylenol) 1000 mg Oral Allergy Information: Triaminic Allergy; chlorpheniramine/dextrome thorphan/PSE PHYSICIAN DOCUMENTATION DISCHARGE INFORMATION: Discharge Disposition: Home Discharge Location: Home PATIENT EDUCATION INFORMATION Instructions: Abdominal Pain, Adult, [id number] Follow-Up: With: Address: When: Follow up with primary care provider Within 3 to 5 days DIAGNOSIS: 1:Fall; 2:Pelvic pain in female Patient Understands: Yes - Patient/family/caregiver verbalizes understanding of instructions given Comment: [facility] ED Note-Nursingon 12-18-2023 ED Note-Nursing Patient arrives by E [facility] with c/o abdominal pain and dark red/brown scant bleeding. Patient had a partial hysterectomy a month ago and her dog ran into her, causing her to fall. Since fall has had increasing abdominal pain and bleeding. Bleeding is scant and controlled, pain rated 8/10. Patient has not taken any medications, but has prescription for pain from her surgery. 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 Normal [facility] ED Patient Summaryon 024 ED Patient Summary [facility] - Emergency Department [address] [place] [address] PATIENT DISCHARGE INSTRUCTIONS Patient Information Name: BARBRA CLAROS Age: 28 Years Date of : 1995 Reason For Visit: Pelvic pain; FALL Arrival Time: 12/18/2023 16:55:10 Primary Care Physician: Provider, None Attending Physician: Anjel Yates MD Comment: Visit Diagnosis: Diagnoses This Visit Fall (W19.XXXA) Pelvic pain ([id number]) Pelvic pain in female (R10.2) The Pharmacy at [facility] is open Monday through Monday from 9A to 6P and Monday and Monday from 9A to 5P Prescription Information: If you have been given a prescription for narcotics, seek immediate medical attention if you have any difficulty breathing or any sudden status changes such as confusion and sleepiness. If you or anyone you know is experiencing suicidal thoughts, mental health, alcohol and/or drug addiction problems; contact the [facility] 09/01 Crisis Hotline -Text 5LZYP ki 557555. If you received any narcotics, sedation, or any other medication that causes drowsiness for the next 24 hours, unless otherwise directed: ? Do not drive a car. ? Do not operate machinery such as power tools, lawn mowers, drills, sewing machines, or stoves ? Avoid alcoholic beverages and drugs for allergies, nerves, or sleep ? Do not make important personal or business decisions or sign any legal documents With: Address: When: Follow up with primary care provider Within 3 to 5 days Medication Information: The exam and treatment you received today in the [facility] Emergency Department were for an urgent problem and are not intended as complete care. It is important for you to follow up with a doctor, nurse practitioner, or physician?s employee relations assistant for ongoing care. If your symptoms become worse or you do not improve as expected and you are unable to reach your usual health care provider, you should return to the Emergency Department, we are available 24 hours a day. For those patients who have received Radiology results, the interpretation of your X-ray as given to you by our Emergency Department physician is only a preliminary report. The Radiologist will review your films and if there is a change in the diagnosis you will be notified by phone. Please make sure you have provided a working phone number so we can reach you if necessary. In the event that you had a lab culture while you were a patient in the Emergency Department, you will be notified by phone if there is a need to change your antibiotic. Please make sure you have provided a working phone number so we can reach you if necessary. [facility] Emergency Department has provided you with a complete list of medications post discharge. Please inform your lens mold setter/provider of your visit and for further instruction on these medications. Any specific questions regarding your chronic medications and dosages should be discussed with your primary care physician(s) and/or pharmacist. Additional medications on your home medication list not specifically addressed. Please contact the ordering physician if you have questions about these medications. Durable Medical Equipment for Prescription (tramadol 50 mg tablet) TAKE 1 TABLET BY MOUTH EVERY 6 HOURS NEEDED FOR PAIN. escitalopram (escitalopram 10 mg oral tablet) TAKE 1 TABLET BY MOUTH DAILY. Visit Information Allergies: Substance Reaction Symptoms Type Comments chlorpheniramine/dextrome thorphan/PSE Drug Triaminic Allergy Anaphylactic reaction Drug Vital Signs: Vitals and Measurements this Visit (last charted value for your 12/18/2023 visit) Vital Signs This Visit Temperature Oral: 36.7 DegC Heart Rate Monitored: 98 bpm Respiratory Rate: 16 br/min Systolic Blood Pressure: 121 mmHg Diastolic Blood Pressure: 71 mmHg SpO2: 98 % Oxygen Therapy: Room air Measurements This Visit Height/Length Measured: 160 cm Weight Measured: 68.95 kg Weight Dosin.950 kg Body Mass Index: 26.93 kg/m2 Problems List: Problem Onset Comments ADHD - Attention deficit disorder with hyperactivity Anxiety Depression Tobacco user Patient Education Abdominal Pain, Adult Follow-up with your BEHAVIORAL SCIENCES INSTRUCTOR review this emergency department visit and for further evaluation of your pelvic pain and vaginal bleeding. Many things can cause belly (abdominal) pain. Most times, belly pain is not dangerous. Many cases of belly pain can be watched and treated at home. Sometimes, though, belly pain is serious. Your doctor will try to find the cause of your belly pain. Follow these instructions at home: Medicines ? Take igfd-bhz-pvxcyhl and prescription medicines only as told by your doctor. ? Do not take medicines that help you poop (laxatives) unless told by your doctor. General i (more content not included)... [facility] Extra Greenon 12-18-2023 Tube Collected Yes Invalid Interpretation Code [facility] Comment on above: Performed By: #### 1 [id number], [id number], [id number], [id number], [id number] #### [facility] (DEFAULT) [address] [place] [address] UA [id number] 12-18-2023 UA Bacteria Trace [facility] Comment on above: Order Comment: Urina lysis Microscopic order added on by [employer] Expert Rules system. Performed By: #### 5 [id number], [id number] ####[facility] (DEFAULT)[address] [place] [address] UA RBC 3-5 [facility] Comment on above: Order Comment: Urina lysis Microscopic order added on by [employer] Expert Rules system. Performed By: #### 5 [id number], [id number] ####[facility] (DEFAULT)[address] [place] [address] UA Squam Epi Few [facility] Comment on above: Order Comment: Urina lysis Microscopic order added on by [employer] Expert Rules system. Performed By: #### 5 [id number], [id number] ####[facility] (DEFAULT)[address] [place] [address] UA WBC 0-2 [facility] Comment on above: Order Comment: Urina lysis Microscopic order added on by [employer] Expert Rules system. Performed By: #### 5 [id number], [id number] ####[facility] (DEFAULT)[address] [place] [address] UA w Culture if Ind Standard on 12-18-2023 Breakpoint UA [facility] Comment on above: Performed By: #### 5 [id number], [id number] ####[facility] (DEFAULT)[address] [place] [address] Color (U) Yellow Normal [facility] Comment on above: Performed By: #### 5 [id number], [id number] ####[facility] (DEFAULT)[address] [place] [id number] Culture? Not Indicated Invalid Interpretation Code [facility] Comment on above: Result Comment: Resu lt created by rule GL_MAGR_ADD_UA_CULT Result created by rule GL_MAGR_ADD_UA_CULT Result created by rule GL_MAGR_ADD_UA_CULT1 Performed By: #### 5 [id number], [id number] ####[facility] (DEFAULT)[address] [place] [address] Glucose (U) [Mass/Vol] Negative Normal [facility] Comment on above: Performed By: #### 5 [id number], [id number] ####[facility] (DEFAULT)[address] [place] [address] Ketones Ql (U) Negative [facility] Comment on above: Performed By: #### 5 [id number], [id number] ####[facility] (DEFAULT)[address] [place] [address] Micro? Indicated Invalid Interpretation Code [facility] Comment on above: Result Comment: Resu lt created by rule GL_MAGR_ADD_UA_MICRO Performed By: #### 5 [id number], [id number] ####[facility] (DEFAULT)[address] [place] [address] UA Bilirubin Negative Normal [facility] Comment on above: Performed By: #### 5 [id number], [id number] ####[facility] (DEFAULT)[address] [place] [address] UA Blood SMALL Abnormal NEGATIVE [facility] Comment on above: Performed By: #### 5 [id number], [id number] ####[facility] (DEFAULT)[address] [place] [address] UA Clarity CLEAR Normal CLEAR [facility] Comment on above: Performed By: #### 5 [id number], [id number] ####[facility] (DEFAULT)[address] [place] [address] UA Leuk Est Negative Normal NEGATIVE [facility] Comment on above: Performed By: #### 5 [id number], [id number] ####[facility] (DEFAULT)[address] [place] [address] UA Nitrite Negative Normal NEGATIVE [facility] Comment on above: Performed By: #### 5 [id number], [id number] ####[facility] (DEFAULT)[address] [place] [address] UA pH 6.0 Normal 5-8 [facility] Comment on above: Performed By: #### 5 [id number], [id number] ####[facility] (DEFAULT)[address] [place] [address] UA Protein Negative Normal NEGATIVE [facility] Comment on above: Performed By: #### 5 [id number], [id number] ####[facility] (DEFAULT)[address] [place] [address] UA Spec Grav 1.010 Normal 1.001-1.035 [facility] Comment on above: Performed By: #### 5 [id number], [id number] ####[facility] (DEFAULT)[address] [place] [address] UA Urobilinogen 0.2 mg/dL Normal 0.2-1.0 [facility] Comment on above: Performed By: #### 5 [id number], [id number] ####[facility] (DEFAULT)[address] [place] [address] Urine Source Clean Catch Normal [facility] Comment on above: Performed By: #### 5 [id number], [id number] ####[facility] (DEFAULT)[address] [place] [address] CBCon 11-28-2023 Erythrocyte distribution width (RBC) [Ratio] 14.6 % High 11.8-14.4 [facility] Comment on above: Performed By: #### C DP #### [facility] [address] [place] [address] Pattern Checker: Lakhwinder Tim MD Hematocrit (Bld) [Volume fraction] 35.5 % Low 36.3-47.1 [facility] Comment on above: Performed By: #### C DP #### [facility] [address] [place] [address] [address] [place], [place] [id number] Pattern Checker: Lakhwinder Tim MD Hemoglobin (Bld) [Mass/Vol] 11.3 g/dL Low 11.9-15.1 [facility] Comment on above: Performed By: #### C DP #### [facility] [address] [place] [address] [address] [place], [place] [id number] Pattern Checker: Lakhwinder Tim MD MCH (RBC) [Entitic mass] 27.3 pg Normal 25.2-33.5 [facility] Comment on above: Performed By: #### C DP #### [address] [place], [facility]83 Pattern Checker: Lakhwinder Tim MD MCHC (RBC) [Mass/Vol] 31.8 g/dL Normal 28.4-34.[address] [facility] Comment on above: Performed By: #### C DP #### [address] [place], [place] [id number] Pattern Checker: Lakhwinder Tim MD MCV (RBC) [Entitic vol] 85.7 fL Normal 82.6-102.9 [facility] Comment on above: Performed By: #### C DP #### [facility] [address] [place] [address] [address] [place], [place] [id number] Pattern Checker: Lakhwinder Tim MD NRBC Automated 0.0 per 100 WBC Normal 0.0 [facility] Comment on above: Performed By: #### C DP #### [facility] [address] [place] [address] [place] [address] Pattern Checker: Lakhwinder Tim MD Platelet mean volume (Bld) [Entitic vol] 10.2 fL Normal 8.1-13.5 [facility] Comment on above: Performed By: #### C DP #### [facility] [address] [place], [place] [id number] Pattern Checker: Lakhwinder Tim MD Platelets (Bld) [#/Vol] 279 10*3/uL Normal 138-453 [facility] Comment on above: Performed By: #### C DP #### [facility] [address] [place] [address] Pattern Checker: Lakhwinder Tim MD RBC (Bld) [#/Vol] 4.14 10*6/uL Normal 3.95-5.11 [facility] Comment on above: Performed By: #### C DP #### [facility] [address] [place], [place] [id number] Pattern Checker: Lakhwinder Tim MD WBC (Bld) [#/Vol] 6.3 10*3/uL Normal 3.5-11.3 [facility] Comment on above: Performed By: #### C DP #### [facility] [address] [place], [place] [id number] Pattern Checker: Lakhwinder Tim MD Vaginitis DNA Probeon 2023 Anca Negative Normal NEG [facility] Comment on above: Result Comment: for Anca sp. Method of testing is a DNA probe intended for detection and identification of Anca species, Gardnerella vaginalis, and Trichomonas vaginalis nucleic acid in vaginal fluid specimens from patients with symptoms of vaginitis/vaginosis. Performed By: #### C P, LIP, CDP #### [facility] [address] [place], [place] [id number] Pattern Checker: Lakhwinder Tim MD Gardnerella Positive Abnormal NEG [facility] Comment on above: Result Comment: for Gardnerella vaginalis Performed By: #### C P, LIP, CDP #### [facility] [address] [place] [address] Pattern Checker: Lakhwinder Tim MD Trichomonas Negative Normal NEG [facility] Comment on above: Result Comment: for Trichomonas Vaginalis Performed By: #### C PTOM, CDP #### [facility] [address] [place] [address] Pattern Checker: Lakhwinder Tim MD Source .VAGINAL SWAB Normal [facility] Comment on above: Performed By: #### C TOM Mckeon, CDP #### [facility] [address] [place] [address] Pattern Checker: Lakhwinder Tim MD CT ABDOMEN PELVIS W IV CONTR Marichuy 11-27-2023 CT ABDOMEN PELVIS W IV CONTRAST ADDENDUM: EXAM NOTE - Needs AddendumDr PelletierCORE: Dorinda Joseph, 11/26/2023 11:56 PMCOMMUNICATION NOTE - Speak with Physician - STATCompletedSmall amount of hemorrhage in the pelvic cul-de-sac estimated at 100 cc.Assigned:zCORE: Amanda Joseph Hassan : Neuro/IC, 11/26/2023 11:50 PMAttemptedcallingzCORE: Dorinda Joseph, 11/26/2023 11:[address] Saucedo with [address] PelletierCORE: Dorinda Joseph, 11/26/2023 11:56 PM Electronically Signed by: BETSY SAUCEDO on MonNov 27, 2023 4:28:57 AM EDT EXAMINATION: CT OF THE ABDOMEN AND PELVIS WITH CONTRAST 11/26/2023 9:34 pm TECHNIQUE: CT of the abdomen and pelvis was performed with the administration of intravenous contrast. Multiplanar reformatted images are provided for review. Automated exposure control, iterative reconstruction, and/or weight based adjustment of the mA/kV was utilized to reduce the radiation dose to as low as reasonably achievable. COMPARISON: None. HISTORY: ORDERING SYSTEM PROVIDED HISTORY: Severe lower abdominal pain post hysterectomy TECHNOLOGIST PROVIDED HISTORY: Severe lower abdominal pain post hysterectomy Decision Support Exception - unselect if not a suspected or confirmed emergency medical condition->Emergency Medical Condition (MA) FINDINGS: Lower Chest: Visualized portion of the lower chest demonstrates no acute abnormality. Organs: Liver demonstrates no suspicious mass. There is no evidence of intrahepatic biliary ductal dilatation. The spleen, pancreas and adrenal glands are unremarkable. The kidneys demonstrate no evidence of hydronephrosis. GI/Bowel: There is no evidence of bowel obstruction. No evidence of abnormal bowel wall thickening or distension. Pelvis: No acute abnormality of the pelvis organs or bladder. Peritoneum/Retroperitoneu m: Small amount of hemorrhage in the pelvic cul-de-sac estimated at 100 cc. Bones/Soft Tissues: Unremarkable IMPRESSION: Small amount of hemorrhage in the pelvic cul-de-sac estimated at 100 cc. Interpreted by: Betsy Saucedo MD Signed by: Betsy Saucedo MD 11/27/23 Edited Result - FINAL Normal [facility] Basic Metabolic Profon 11-25 Anion gap [Moles/Vol] 8 mmol/L Low 9-[address] [facility] Comment on above: Performed By: #### U OSMINO UAX #### [facility] [address] [place] [address] [place] [address] Pattern Checker: Lakhwinder Tim MD BUN/CRE Ratio 18 Normal 9-20 [facility] Comment on above: Performed By: #### U OSMINO UAX #### [facility] [address] [place] [address] Pattern Checker: Lakhwinder Tim MD Calcium [Mass/Vol] 8.5 mg/dL Low 8.6-10.4 [facility] Comment on above: Performed By: #### U OSMINO UAX #### [facility] [address] [place] [address] [place] [address] Pattern Checker: Lakhwinder Tim MD Chloride [Moles/Vol] 101 mmol/L Normal 98-107 [facility] Comment on above: Performed By: #### U OSMINO, UAX #### [facility] [address] [place] [address] [place] [address] Pattern Checker: Lakhwinder Tim MD CO2 [Moles/Vol] 28 mmol/L Normal 20-31 [facility] Comment on above: Performed By: #### U MICAO, UAX #### [facility] [address] [place] [address] Pattern Checker: Lakhwinder Tim MD Creatinine [Mass/Vol] 0.6 mg/dL Normal 0.5-0.[address] [facility] Comment on above: Performed By: #### U MICAO, UAX #### [facility] [address] [place] [address] Pattern Checker: Lakhwinder Tim MD GFR/1.73 sq M.predicted among non-blacks MDRD (S/P/Bld) [Vol rate/Area] mL/min/{1.73_m2} Normal >60 [facility] Comment on above: Result Comment: These results are not intended for use in patients <18 years of age. eGFR results are calculated without a race factor using the 2020 CKD-EPI equation. Careful clinical correlation is recommended, particularly when comparing to results calculated using previous equations. The CKD-EPI equation is less accurate in patients with extremes of muscle mass, extra-renal metabolism of creatine, excessive creatine ingestion, or following therapy that affects renal tubular secretion. Performed By: #### U OSMINO, UAX #### [facility] [address] [place] [address] Pattern Checker: Lakhwinder Tim MD Glucose [Mass/Vol] 88 mg/dL Normal 70-99 [facility] Comment on above: Performed By: #### U OSMINO, UAX #### [facility] [address] [place] [address] Pattern Checker: Lakhwinder Tim MD Potassium [Moles/Vol] 3.7 mmol/L Normal 3.7-5.[address] [facility] Comment on above: Performed By: #### U MICAO, UAX #### [facility] [address] [place] [address] Pattern Checker: Lakhwinder Tim MD Sodium [Moles/Vol] 137 mmol/L Normal 135-144 [facility] Comment on above: Performed By: #### U MICAO, UAX #### [facility] [address] [place], [place] [id number] Pattern Checker: Lakhwinder Tim MD Urea nitrogen [Mass/Vol] 11 mg/dL Normal 6-20 [facility] Comment on above: Performed By: #### U MICAO, UAX #### [facility] [address] [place], [facility]83 Pattern Checker: Lakhwinder Tim MD CBC with Diffon 11-26-2023 Abs. Basophil <0.03 Normal 0.00-0.20 [facility] Comment on above: Performed By: #### U MICAO, UAX #### [address] [place], [facility]83 Pattern Checker: Lakhwinder Tim MD Abs.Imm.Granulocyte <0.03 Normal 0.00-0.30 [facility] Comment on above: Performed By: #### U MICAO, UAX #### [address] [place], [facility]83 Pattern Checker: Lakhwinder Tim MD Abs.Neutrophil (Seg) 4.02 k/uL Normal 1.50-8.10 [facility] Comment on above: Performed By: #### U MICAO, UAX #### [address] [place], [place] [address] Pattern Checker: Lakhwinder Tim MD Basophils/100 WBC (Bld) 0 % Normal 0-2 [facility] Comment on above: Performed By: #### U MICAO, UAX #### [address] [place], [facility]83 Pattern Checker: Lakhwinder Tim MD Eosinophils (Bld) [#/Vol] 0.20 10*3/uL Normal 0.00-0.44 [facility] Comment on above: Performed By: #### U MICAO, UAX #### [facility] [address] [place] [address] Dr. [place], [place] [id number] Pattern Checker: Lakhwinder Tim MD Eosinophils/100 WBC (Bld) 3 % Normal 1-4 [facility] Comment on above: Performed By: #### U MICAO, UAX #### [address] [place], [place] [id number] Pattern Checker: Lakhwinder Tim MD Erythrocyte distribution width (RBC) [Ratio] 14.6 % High 11.8-14.4 [facility] Comment on above: Performed By: #### U MICAO, UAX #### [address] [place] [id number] Pattern Checker: Lakhwinder Tim MD Hematocrit (Bld) [Volume fraction] 33.2 % Low 36.3-47.1 [facility] Comment on above: Performed By: #### U MICAO, UAX #### [address] [place], [facility]83 Pattern Checker: Lakhwinder Tim MD Hemoglobin (Bld) [Mass/Vol] 10.8 g/dL Low 11.9-15.1 [facility] Comment on above: Performed By: #### U MICAO, UAX #### [address] [place] [id number] Pattern Checker: Lakhwinder Tim MD Immature granulocytes/100 WBC (Bld) 0 % Normal 0 [facility] Comment on above: Performed By: #### U MICAO, UAX #### [address] [place], [facility]83 Pattern Checker: Lakhwinder Tim MD Lymphocytes (Bld) [#/Vol] 2.70 10*3/uL Normal 1.10-3.70 [facility] Comment on above: Performed By: #### U MICAO, UAX #### [address] [place] [address] Pattern Checker: Lakhwinder Tim MD Lymphocytes/100 WBC (Bld) 36 % Normal 24-43 [facility] Comment on above: Performed By: #### U MICAO, UAX #### [facility] [address] [place] [address] Pattern Checker: Lakhwinder Tim MD MCH (RBC) [Entitic mass] 27.3 pg Normal 25.2-33.5 [facility] Comment on above: Performed By: #### U MICAO, UAX #### [facility] [address] [place] [address] Pattern Checker: Lakhwinder Tim MD MCHC (RBC) [Mass/Vol] 32.5 g/dL Normal 28.4-34.[address] [facility] Comment on above: Performed By: #### U OSMINO, UAX #### [facility] [address] [place] [address] Pattern Checker: Lakhwinder Tim MD MCV (RBC) [Entitic vol] 84.1 fL Normal 82.6-102.9 [facility] Comment on above: Performed By: #### U MICAO, UAX #### [facility] [address] [place] [address] Pattern Checker: Lakhwinder Tim MD Monocytes (Bld) [#/Vol] 0.64 10*3/uL Normal 0.10-1.20 [facility] Comment on above: Performed By: #### U MICAO, UAX #### [facility] [address] [place] [address] Pattern Checker: Lakhwinder Tim MD Monocytes/100 WBC (Bld) 8 % Normal 3-12 [facility] Comment on above: Performed By: #### U MICAO, UAX #### [facility] [address] [place] [address] Pattern Checker: Lakhwinder Tim MD Neutrophil (Seg) 53 % Normal 36-65 [facility] Comment on above: Performed By: #### U KARINA, UAX #### [facility] [address] [place], [place] [id number] Pattern Checker: Lakhwinder Tim MD NRBC Automated 0.0 per 100 WBC Normal 0.0 [facility] Comment on above: Performed By: #### U KARINA, UAX #### [facility] [address] [place], [place] [id number] Pattern Checker: Lakhwinder Tim MD Platelet mean volume (Bld) [Entitic vol] 10.2 fL Normal 8.1-13.5 [facility] Comment on above: Performed By: #### U KARINA, UAX #### [address] [place], [place] [id number] Pattern Checker: Lakhwinder Tim MD Platelets (Bld) [#/Vol] 253 10*3/uL Normal 138-453 [facility] Comment on above: Performed By: #### Josesito COLLINS UAX #### [address] [place], [place] [id number] Pattern Checker: Lakhwinder Tim MD RBC (Bld) [#/Vol] 3.95 10*6/uL Normal 3.95-5.11 [facility] Comment on above: Performed By: #### U KARINA, UAX #### [facility] [address] [place] [address] [address] [place], [place] [id number] Pattern Checker: Lakhwinder Tim MD WBC (Bld) [#/Vol] 7.6 10*3/uL Normal 3.5-11.3 [facility] Comment on above: Performed By: #### U OSMINO, UAX #### [address] [place] [address] Pattern Checker: Lakhwinder Tim MD Magnesiumon 11-26-2023 Magnesium [Mass/Vol] 2.0 mg/dL Normal 1.6-2.6 [facility] Comment on above: Performed By: #### U MICAO, UAX #### [facility] [address] [place], [place] [id number] Pattern Checker: Lakhwinder Tim MD Urinalysis w/ Microon 2023 Epithelial cells LM Ql (Urine sed) 0 TO 2 Normal 0-25 [facility] Comment on above: Performed By: #### C P, LIP, CDP #### [facility] [address] [place], [place] [id number] Pattern Checker: Lakhwinder Tim MD Mucus Strands 1+ Abnormal NONE [facility] Comment on above: Performed By: #### C P, LIP, CDP #### [facility] [address] [place], [place] [id number] Pattern Checker: Lakhwinder Tim MD Urine RBC's 0 TO 2 Normal 0-2 [facility] Comment on above: Performed By: #### C P, LIP, CDP #### [facility] [address] [place], [place] [id number] Pattern Checker: Lakhwinder Tim MD Urine WBC's 0 TO 2 Normal 0-5 [facility] Comment on above: Performed By: #### C P, LIP, CDP #### [facility] [address] [place], [place] [id number] Pattern Checker: Lakhwinder Tim MD Bilirubin, SemiQt,Ur Negative Normal NEG [facility] Comment on above: Performed By: #### C P, LIP, CDP #### [facility] [address] [place], [place] [id number] Pattern Checker: Lakhwinder Tim MD Blood, Urine Negative Normal NEG [facility] Comment on above: Performed By: #### C P, LIP, CDP #### [facility] [address] [place], [place] [id number] Pattern Checker: Lakhwinder Tim MD Clarity (U) Clear Normal CLEAR [facility] Comment on above: Performed By: #### C P, LIP, CDP #### [facility] [address] [place], [place] [id number] Pattern Checker: Lakhwinder Tim MD Color (U) Yellow Normal YEL [facility] Comment on above: Performed By: #### C P, LIP, CDP #### [facility] [address] [place], [place] [phone] Pattern Checker: Lakhwinder Tim MD Glucose Ql (U) Negative Normal NEG [facility] Comment on above: Performed By: #### C P, LIP, CDP #### [facility] [address] [place], [place] [id number] Pattern Checker: Lakhwinder Tim MD Ketones Ql (U) Negative Normal NEG [facility] Comment on above: Performed By: #### C P, LIP, CDP #### [facility] [address] [place], [place] [id number] Pattern Checker: Lakhwinder Tim MD Leukocyte esterase Test strip Ql (U) Negative Normal NEG [facility] Comment on above: Performed By: #### C P, LIP, CDP #### [facility] [address] [place], [place] [id number] Pattern Checker: Lakhwinder Tim MD Nitrite,Ur Negative Normal NEG [facility] Comment on above: Performed By: #### C P, LIP, CDP #### [facility] [address] [place], [place] [phone] Pattern Checker: Lakhwinder Tim MD PH,Ur 6.0 Normal 5.0-9.0 [facility] Comment on above: Performed By: #### C P, LIP, CDP #### [facility] [address] [place], [place] [id number] Pattern Checker: Lakhwinder Tim MD Protein Ql (U) Negative Normal NEG [facility] Comment on above: Performed By: #### C P, LIP, CDP #### [address] [place] [address] Pattern Checker: Lakhwinder Tim MD Spec. Fackler,Ur >1.030 High 1.010-1.020 [facility] Comment on above: Performed By: #### C P, LIP, CDP #### [address] [place], [place] [id number] Pattern Checker: Lakhwinder Tim MD Urobilinogen,Ur Normal Normal 0.0-1.0 [facility] Comment on above: Performed By: #### C P, LIP, CDP #### [address] [place], [place] [id number] Pattern Checker: Lakhwinder Tim MD Surgical Pathology Reporton 11-20-2023 Surgical Pathology Report (NOTE) Path Number: [id number] -- Diagnosis -- UTERUS AND CERVIX, HYSTERECTOMY: - SECRETORY PHASE ENDOMETRIUM. - BENIGN CERVIX WITH NO SIGNIFICANT PATHOLOGIC ABNORMALITY. Sayra Olivares Electronically Signed Out 11/22/2023 Clinical Information Pre-Op Diagnosis: MENORRHAGIA WITH REGULAR CYCLE; PELVIC PAIN; ADENOMYOSIS; PELVIC CONGESTION SYNDROME Operative Findings: UTERUS AND CERVIX Operation Performed: HYSTERECTOMY VAGINAL LAPAROSCOPIC ROBOTIC ASSISTED POSSIBLE BILATERAL SALPINGO-OOPHORECTOMY, POSSIBLE LAPAROSCOPIC COLPOPEXY kb Source of Specimen A: UTERUS AND CERVIX Gross Description BARBRA CLAROS, UTERUS AND CERVIX Received in formalin is a 87.6 gram uterus and cervix (8.1 cm cervix-fundus x 5.0 cm cornu-cornu x 4.3 cm anterior-posterior). The uterine serosa is lizama-pink and smooth and anteriorly disrupted (anterior = blue and posterior = black). There is 3.0 x 3.0 cm lizama-pink, smooth ectocervix that surrounds a 1.5 cm slit-like os. There is a 4.0 x 2.4 cm endometrial cavity. The cavity is lined by a lizama, ragged mucosa. The mucosa is up to 0.8 cm. The myometrium is lizama and rubbery and is up to 1.8 cm. The cervix is lined by a lizama, corrugated mucosa. Sectioning of the cervix reveals rubbery cut surfaces with few nabothian cysts. These cysts are up to 0.2 cm and contain cloudy mucoid material. No further masses or lesions are identified. Supervisor Vat House sections are submitted in 4c as follows: 1 anterior cervix 2 posterior cervix 3 anterior endomyometrium 4 posterior endomyometrium. tm Kay Saucedo/sandra2:11/21/2023 Microscopic Description Microscopic examination performed. Processing Lab: [address] [phone] Interpretation Performed at [address] [phone] SURGICAL PATHOLOGY CONSULTATION Patient Name: BARBRA CLAROS [facility] Rec: [id number] [facility] ANATOMIC PATHOLOGY [address] [place] [id number] [facility] Coding Summaryon 10-25-2023 Coding Summary HTMLBase 64 IxlgjejyEMv5sEx+PGhlYWQ+P S4ZHJTcJ88hkQLdkH3oU6OEWI lOSywgQVBQTElOSyIgbmFtZT1 kaXNjZXJu IC8+CV5iGPZjXtkymEUdk7J2v FQ3Q84wge9rLXkkfNF4GMZjXj Oaczrlw2guuXj1YWduBzzkQgQ t CTLtmO37WPT9cQ16Vj42xDPyq LTdx6ylkOy9XnJyNVYgJJT9jK oiUXxwj7GgIKNrV18ukZTva2X 6 LGValHymgPMoGoGojBQ9lB7eI Vsmccspn5pgrnyyTht6nx42jK Elp8Q3oHQ4U9NiccU5ZLUltER g AjiqzFLGwR6zjgfva5sbaqoqT wWnHBUrSIb1HKq5CFTqdUddDb FtZR40EVU8NBSegrBzX6PwPGL s oKuyLcF3w0Y0Uu5RH2ARDgzcS 1VNTUFSWTwvdGQ+UR01lm72B9 HcAjweIds7NCSbJWT2rJF7iC5 n LVJlDXofz2V2eFZ5T9NsqdTvg l3dr8kgAAUeEMvbI52osGFxd9 O4YTTozGE3ZCDpwMibHlYafY8 3 Oyc+DIVqvJapi5CkSggvw1dut 8ivnDj7DxarWKJoqhFmcNjqYH U2j6JxZm2qITItrEL6sDJ8hM9 i IsErTsC6CXcjD094KmGwiEOkS jjiX57qN0WwoBC+PDRiJkp8RW IzuRpySI7hA2VnRUSdikrtnVX m hSsnIK3nXXCtzyweXUFtxM2lG JRyF6h7VpPaAqZ3WArpO2VuEV VwvgtoZz19pF8zMnSyFyN4WYa u Q2DfktU6EPSalEMdGHqmTIM2J 82gz5V5UFCpSNZxHKH2lMH3cI 1hbGlnbjogbGVmdDsgdmVydGl j CTtwMAesJ989MLNrrTwrQnGyC GluZyBEYXRlOiAgMDUvMDgvMj AyNDwvdGQ+QGIrCNA2kAlxJQZ n nQVwYVxbTk5ktZhwkDhiHG2lI UTznzrtOWVfdJ5bXHFylPRzdK gaJF8sWEAwxkecu789VrQuLVJ 0 ZSIpxJEzN8SxpE2vYoEyZFRiN VUbS1XbhESrOYzrM886FRekBo C5VCAqhcPuN4LaTRZfjElzXuI 0 h6F8Ak1Lk9MzptboC6PxoIWpH oTjBdfyEYt9H7HiUsvhwRC+PC 43BKVmNB17FIh3BHR0bOcsDUl i ZCCgM6FegA1sOmKjHKGiTHIfT yc+PHRhYmxlIHdpZHRoPScxMD GuAxMhkSelKA8pRr6oGUSgIYP v xEhtvKXoGdNea9psUPZhJNntJ M6kdUszY9JtjKG8TGSos2x5Ac 88F27oQ5RaqUK+VGXswJQ4hTK 0 lD2oPuHcLrB7WVcfU781CwHkk IRlMxrxp3laj6cbiMy4WyP1KM IkkpHriGrdDTK6z5NwPm10G48 s IHdpZHRoPSIxNSUiIHZhbGlnb t0cdM5pMa3+NUWvoVC2cCT0xX 9mIiDtLlQ1NIlmH482CsQaeBM v Lwtly0ohw1ofoSq2TzTdLYXbz oMpaSxjVVM5c0XlKg65S9DtnF xxe2BzOru0yt76rMTnl7E9rEA 9 E3AcJEBvapchfIQguQezDR7iH WRdtjxtBUXrvI4xCAKgB2i8Eh LfHjH1AZseZ7BkgxF2DBJloOI g QQZfqYNHjK5khooif5yclsvfS yCeYPJlSFt9DPe5ASGecFmcWh FaLTG7RaA2WXX3gSLibB4mpVf n bfujqC8qYbc+DYG9qVBcvPCGF Y4bFgmdiYF+JQRoZCQ6aJkfZU acMGJpiY2tICWbJ7z0IrPeVrG 1 HZsvK4RmfdA8NNUicZIsOIHem HMShN9zypnuf9nmeqgcPqIuEK QzQOl1TJx9DXDxqInmWvTnSCY 0 UrL8CVC7bHAboA6sgVldxiboq G9wOyc+DrzuiKkfKSE7BJg8E3 DtUpe6LVYdxPehRM4wlDFzNWi u Pj5xwOwmdLdoMB6bFVVanxiha 196SwYne2hsOXErgBFyTAglAQ X4V03dq5Z5SJAuUODzHMQ3gIV 4 jP8hzPefxzrxgSYkdCcnqdCbu MgsWDxpNHwgQ758FDQkdGzoPm FgMPp0E5NnIbc8ZGRtzCbxWO0 n sYWxIJqnAs6cqKdkuFrcBC0pH LAnutrfq065PjUem8jqVJCspI ZvLJykDOT3Q48em2Q2VDQtJBN w ONH2bGY7lI8lzLzekgfgkBEas RpdsmYjsErvKScfYXwnF375GN NgcLadVyCsgHv1X7RwSsg7LXT z aJepPC2wuQTnKCiiCr9ioAwlp IddLR6fZPMjuyaps677JsMra3 urNBUbfQGeXCxmOQK3E58ig8S 6 ETFvMQYjQYE0eOV5pA2heHjhq jogbGVmdDsgdmVydGljYWwtYW iwM478BUDcnNryPtQdzWijwkR g HYypUOj0O3SlSbysyEE+PC90Y MZuYR24xDUccUXyd0nvzHi5Lk CpXRXvYWZ8dJpnFEvhk3MgBAV t I05hjTFwy5N7DACbfEmcxBMaX cAdfLM9oP0aNSiurdjlt7pyaq tjYlumv1qypv21cE46D56rSGl p EKGaLTRhACCnEBLzvJlmiw2ka G9wIi8+PHYxaJC1tPP4oF8cHM YkTeT3GIgdA020SzYhyYUgRab j i9pnv3jdaJt1OrH9ZXFjvwRle AllMNE5o4IaOr23E59zZYvhKM DtPRUuPFFsIGWanLwyei9muR6 w Ii8+FCHfzQG8nUE0hH7cFdRiI aX2TTfuY384SmEttDXzAoynP0 4rT5TfzPP+YVXbLmc8MBKlpQj s YQ8hcVQjYBetQx5dSBI4MzIjK bSpYHcwP2TwBATtgetmebeooY N8OTTmQHMksD48Fw3ekStlJBW w hQUVcN2vbqqqc3yaygqfTcKxB BMrFKv4LXa2LYLdbYmxReApQM Z1JoM5DVS1kDWvuS6gsBomdbp g sM8rF6IjZLVncbpfMa68qA4cB zSiWeR1EErtEeh+P6nFZ30STO GVTWDGEU4RLKSUIGfYHzyynLF + IJGbKNV4sTheRExjVEIxmA4dY BTjX5k3EmEdDgE9EIchL2JyOO SzryagVi48sO3mWmVhIeS9QWz u B8OpkjK6GABskZBiEUnkICH4W 59ec0X6PPRrLXRiSXU4oJZ5eK 1hbGlnbjogbGVmdDsgdmVydGl j ELvtMSwoM040VMAcxEkiMwNlC cW7EjQ8AWO1V4KiMed1QZWaeC qwXW3hcOPwYYovUn8lmZfhfKz g EL7yAFAtdzakJNUgxJ2kSVGcx NRscTxhDH0fGKYypyxhp389Ua QqSVK4MRVlcNCpM5WekZ2jCzG j CBTmFVWiV7McbGTkVKyeO383P GxnZvT9XUTlsfIgJ4TxKOWusY oeApU7u2Y9Oa0bJAZSPFCrriz v dGQ+BOKbJPK3bUniZGppFWRtk M4jXTSjR9o7JfZoLnF1VThrX4 OjELLwxzaeGv32hK2kApIyHaF 1 XBfoT4ZehkD1PGTqfCUvHQqcV QU8D67ra6Z9YNNpUZTaAQH5cV Y8mN7hyWryzikymRIktOkaotO y pFcwCFyjCAegM739UHEsjSmqT kZFTUFMRTwvdGQ+AZEeMOC9oK fgWQxgQLWobK3oRAYxO1r5NuF w JqC6FBkfU9KnZTBlyybyUb61t P1oUlPgBlO4IRbsZ6GdkrQ0IP EsuCSbMLonMDE8W01lg6G3XND w XPOzVIQ6rDX8xQ4vkMuqddoul GVmdDsgdmVydGljYWwtYWxpZ2 46UTYeaWkuOv9SJG18MM16T6L y PjwvdGFibGU+PHRhYmxlIHdpZ MScAHwlXWMzUpPboBzxSP6bSv 8rNDPiFSSgoPtlwJBcRaUys4k s WRZiNIilKI4oaZbtM3RlgLE7K AQui6d4Zt49M92fT0BbvVB+PG ShbXS2rMP4wR3dPlDeNbE1NXa p V319BgGqaEPwRenag1ffq0txb Gz6OaYyOVTruvHquMicIKN4q7 IxYh86U06uQImyZQHwWROgQDW i KVQlbJbzqp9drV8jVw6+PGNvb QT7jDW1lE6qNyNiNnI5CJktY0 88LoJtqCDfCiwdN05zM9CnuPA + BWLfCjw4PVBegVbiXR1jkFFjT HkgZe6fUYV2YeHqRuMdCHtoS8 OlDZRyhktlzgrbyIT9KENcPLA w bO75Hc0hqTmzVz6cOEKfBYT3N YEicEUgC7OtnM8fZvSgHSEwYJ DrV9UscYSnLJauC330XSwxFqF 7 MPEdxtTaP4BwDBXosEdsHfE8x 7C3Mv2IcBhxzUVnGR8rGiYrYZ g0E2QdTwo8CFXldVaaYC5moRB k XTkxQa7leLzhtDtkGU8yPRNww fcsp124HvFgr4ruJOMofZXnON jkMXC9L93wz3A1QFKsMIWpXBI 7 iBP4wU2nyRiiqbptrEJwfEgkq tJvjIvaURksNJhmW453MIYlmY sjUcCQBkt5F3JsBgf2BKVjpAp s NG4yvJQyLHdcOd5ogTbdoOvtD P6vPDToropyc000QiXhe1uzJV WfgSZiJEunIJJ5D38pc5J5NCW w AZNlBMG7fJL4cK3gqVvcbgulc GVmdDsgdmVydGljYWwtYWxpZ2 39QYPaqAvwAc4GBwz7T4CfWie 0 ZNArtKvxXL8jkEGrAIeoXf1em LdctSyjTS4hJFNbqauop264Mg Nuv3hvADNfrZFpOZkjPAN4D39 s g7N6NJTfCXKeKAJ1zIT2oL2ps GlnbjogbGVmdDsgdmVydGljYW udXSaeB092YXWwbZjjEmZfwNI y OjwvdGQ+IA44uf85O0XmGuxvV lo3SNFkPDJ6lJP5fY3cYNNhVN byr2M2iRT4N0KsngVymq1en2x s YXB (more content not included)... Normal [facility] ED Clinical Summaryon 2023 ED Clinical Summary [facility] ? Urgent Care [address] [place] [id number] Clinical Summary PERSON INFORMATION Name: BARBRA CLAROS Age: 28 Years Sex: FEMALE : 1995 MRN: Acct#: Visit Reason: UC - Wrist Injury; RIGHT HAND, WRIST PAIN Arrival: 10/18/2023 09:49:58 Discharge: 10/18/2023 11:14:00 LOS: 000 01:25 Check In: 10/18/2023 09:49:58 Checkout: 10/18/2023 11:14:00 Address: [address] [place] [id number] PCP: ProviderGerda PROVIDER INFORMATION Provider Role Assigned Unassigned Dalila Cotter ED Nurse 10/18/2023 09:52:49 10/18/2023 10:38:20 Juan Santillan PA-C ED PA 10/18/2023 09:53:30 Tova Parsons FRONT END SOFTWARE DEVELOPER Nurse 10/18/2023 10:44:12 VITALS INFORMATION Vital Sign Triage Latest Temperature Tympanic Temperature Temporal Artery Pulse Rate O2 Sat Respiratory Rate Blood Pressure /60 mmHg /60 mmHg MEDICAL INFORMATION Medications Given: Allergy Information: Triaminic Allergy; chlorpheniramine/dextrome thorphan/PSE PHYSICIAN DOCUMENTATION DISCHARGE INFORMATION: Discharge Disposition: Home Discharge Location: Home PATIENT EDUCATION INFORMATION Instructions: Wrist Sprain, Adult Follow-Up: With: Address: When: Follow up with Orthopedic With: Address: When: ProviderGerda [address] [place] [id number] DIAGNOSIS: 1:Right wrist sprain Patient Understands: Yes - Patient/family/caregiver verbalizes understanding of instructions given Comment: Normal [facility] ED Patient Summaryon 024 ED Patient Summary [facility] ? Urgent Care [address] [place], [place] [phone] PATIENT DISCHARGE INSTRUCTIONS Patient Information Name: BARBRA CLAROS Age: 28 Years Date of : 1995 Reason For Visit: UC - Wrist Injury; RIGHT HAND, WRIST PAIN Arrival Time: 10/18/2023 09:49:58 Primary Care Physician: Provider, Gerda Attending Physician: Juan Santillan PA-C Comment: Patient Education With: Address: When: Follow up with Orthopedic With: Address: When: ProviderGerda [address] [place] [phone] Wrist Sprain, Adult A wrist sprain is a stretch or tear in the strong tissues that connect the wrist bones to each other. These strong tissues are called ligaments. There are three types of wrist sprains: ? Grade 1. The ligament is stretched more than normal. There may be a minor amount of wrist pain. ? Grade 2. The ligament is partially torn. You may be able to move your wrist, but not very much. There may be a moderate amount of wrist pain. ? Grade 3. The ligament or ligaments are completely torn. You may find it difficult to move your wrist even a little. There may be a significant amount of wrist pain. What are the causes? This condition may be caused by using the wrist too much during sports, exercise, or work. It can also happen due to a fall or during an accident. What increases the risk? You are more likely to develop this condition if: ? You had a previous wrist or arm injury. ? You have poor wrist strength and flexibility. ? You play contact sports, such as football or soccer. ? You participate in sports that may result in a fall, such as skateboarding, biking, skiing, or snowboarding. ? You do not exercise regularly. ? You use exercise equipment that does not fit well. What are the signs or symptoms? Symptoms of this condition include: ? Pain in the wrist, arm, or hand. ? Swelling or bruised skin near the wrist, hand, or arm. The skin may look yellow or blue. ? Stiffness or trouble moving the hand. ? Hearing a noise, like a pop or a snap, at the time of injury, or feeling a tear at the time of the injury. ? A warm feeling in the skin around the wrist. How is this diagnosed? This condition is diagnosed with a physical exam. Sometimes an X-ray is taken to make sure a bone did not break. You may also have an MRI of your wrist to check for torn ligaments. How is this treated? This condition is treated by resting and applying ice to your wrist. Additional treatment may include: ? Taking medicine for pain and inflammation. ? Wearing a splint, brace, or cast for a short period of time to keep your wrist from moving (immobilized). ? Doing exercises to strengthen and stretch your wrist. ? Having surgery. This may be done if the ligament is completely torn. Follow these instructions at home: If you have a splint or brace: ? Wear the splint or brace as told by your health care provider. Remove it only as told by your health care provider. ? Loosen it if your fingers tingle, become numb, or turn cold and blue. ? Keep it clean. ? If the splint or brace is not waterproof: ? Do not let it get wet. ? Cover it with a watertight covering when you take a bath or a shower. If you have a cast: ? Do not put pressure on any part of the cast until it is fully hardened. This may take several hours. ? Do not stick anything inside the cast to scratch your skin. Doing that increases your risk of infection. ? Check the skin around the cast every day. Tell your health care provider about any concerns. ? You may put lotion on dry skin around the edges of the cast. Do not put lotion on the skin underneath the cast. ? Keep it clean. ? If the cast is not waterproof: ? Do not let it get wet. ? Cover it with a watertight covering when you take a bath or shower. Managing pain, stiffness, and swelling ? If directed, put ice on the injured area. To do this: ? If you have a removable splint or brace, remove it as told by your health care provider. ? Put ice in a plastic bag. ? Place a towel between your skin and the bag or between the splint or cast and the bag. ? Leave the ice on for 20 minutes, 2?3 times a day. ? Remove the ice if your skin turns bright red. This is very important. If you cannot feel pain, heat, or cold, you have a greater risk of damage to the area. ? Move your fingers often to reduce stiffness and swelling. ? Raise (elevate) the injured area above the level of your heart while you are sitting or lying down. Activity ? Rest your wrist as told by your health care provider. Do not do things that cause pain. ? Ask your health care provider when it is safe to drive if you have a splint, brace, or cast on your wrist. ? Do exercises as told by your health care provider. ? Return to your normal activities as told by your health care provider. Ask your health care prov (more content not included)... Normal [facility] XR Wrist Complete Righton XR Wrist Complete Right EXAM: XR Wrist Complete Right HISTORY: Fall/right wrist sprain COMPARISON: None. TECHNIQUE: 3 views of the right wrist. FINDINGS: No acute fracture or dislocation. Soft tissues are grossly unremarkable. IMPRESSION: No acute osseous abnormality. Final Dictated by: Joel Mackenzie MD Dictated DT/TM: 10/18/23 10:51 Signed (Electronic Signature): Joel Mackenzie MD 10/18/23 10:52 a Technologist: LT LEIF [facility] COVID-19, Rapidon 08-15-2023 SARS-CoV-2 (COVID-19) RdRp gene MARICEL+probe Ql (Resp) Not detected Not Detected [facility] Comment on above: Rapid NAAT: The specimen is NEGATIVE for SARS-CoV-2, the novel coronavirus associated with COVID-19. The ID NOW COVID-19 assay is designed to detect the virus that causes COVID-19 in patients with signs and symptoms of infection who are suspected of COVID-19. An individual without symptoms of COVID-19 and who is not shedding SARS-CoV-2 virus would expect to have a negative (not detected) result in this assay. Negative results should be treated as presumptive and, if inconsistent with clinical signs and symptoms or necessary for patient management, should be tested with an alternative molecular assay. Negative results do not preclude SARS-CoV-2 infection and should not be used as the sole basis for patient management decisions. Fact sheet for Healthcare Providers: https://www.fda.gov/media/818944/download Fact sheet for Patients: https://www.fda.gov/media/889104/download Methodology: Isothermal Nucleic Acid Amplification Specimen Description .NASOPHARYNGEAL SWAB [facility] Flu A/B Ag Detectionon 08-15 Flu A Ag Detection Negative Normal NEG [facility] Comment on above: Result Comment: for Influenza A Antigen Performed By: #### U OSMINO, UAX #### [facility] [address] [place] [address] Pattern Checker: Lakhwinder Tim MD Flu B Ag Detection Negative Normal NEG [facility] Comment on above: Result Comment: for Influenza B Antigen. Performed By: #### U MICAO, UAX #### [facility] [address] [place] [address] Pattern Checker: Lakhwinder Tim MD Portable XR Chest AP single viewon 08-15-2023 No acute process. [facility] RIS CONSOLIDATED EXAMINATION: ONE XRAY VIEW OF THE CHEST 08/15/2023 4:54 pm COMPARISON: None. HISTORY: ORDERING SYSTEM PROVIDED HISTORY: chest pain TECHNOLOGIST PROVIDED HISTORY: chest pain FINDINGS: The lungs are without acute focal process. There is no effusion or pneumothorax. The cardiomediastinal silhouette is without acute process. The osseous structures are without acute process. [facility] RIS Josue Brock MD - 08/15/2023 EXAMINATION: ONE XRAY VIEW OF THE CHEST 08/15/2023 4:54 pm COMPARISON: None. HISTORY: ORDERING SYSTEM PROVIDED HISTORY: chest pain TECHNOLOGIST PROVIDED HISTORY: chest pain FINDINGS: The lungs are without acute focal process. There is no effusion or pneumothorax. The cardiomediastinal silhouette is without acute process. The osseous structures are without acute process. IMPRESSION: No acute process. [facility] Radiology Study observation (narrative) [facility] Portable XR Chest AP single viewOrdered By: Josue Clinton on 08-15-2023 [facility] Work Phone: Rapid influenza A/B antigens on 08-15-2023 FLUAV Ag Ql (Unsp spec) Negative NEGATIVE [facility] Comment on above: for Influenza A Anti gen FLUBV Ag Ql (Unsp spec) Negative NEGATIVE [facility] Comment on above: for Influenza B Anti gen. [facility] [id number] 08-15-2023 SARS-CoV-2 (COVID-19) RNA MARICEL+probe Ql (Unsp spec) Not detected Normal [facility] Comment on above: Result Comment: Rapid NAAT: The specimen is NEGATIVE for SARS-CoV-2, the novel coronavirus associated with COVID-19. The ID NOW COVID-19 assay is designed to detect the virus that causes COVID-19 in patients with signs and symptoms of infection who are suspected of COVID-19. An individual without symptoms of COVID-19 and who is not shedding SARS-CoV-2 virus would expect to have a negative (not detected) result in this assay. Negative results should be treated as presumptive and, if inconsistent with clinical signs and symptoms or necessary for patient management, should be tested with an alternative molecular assay. Negative results do not preclude SARS-CoV-2 infection and should not be used as the sole basis for patient management decisions. Fact sheet for Healthcare Providers: https://www.fda.gov/media/859482/download Fact sheet for Patients: https://www.fda.gov/media/215813/download Methodology: Isothermal Nucleic Acid Amplification Performed By: #### U KARINA UAX #### [facility] [address] [place], [place] [id number] Pattern Checker: Lakhwinder Tim MD XR CHEST PORTABLEon 08-15-19 XR CHEST PORTABLE EXAMINATION: ONE XRAY VIEW OF THE CHEST 08/15/2023 4:54 pm COMPARISON: None. HISTORY: ORDERING SYSTEM PROVIDED HISTORY: chest pain TECHNOLOGIST PROVIDED HISTORY: chest pain FINDINGS: The lungs are without acute focal process. There is no effusion or pneumothorax. The cardiomediastinal silhouette is without acute process. The osseous structures are without acute process. IMPRESSION: No acute process. Interpreted by: Josue Clinton MD Signed by: Josue Clinton MD 08/15/23 Final result Normal [facility] HCG, ,Urineon 07-25 Beta HCG ( test) Ql (U) Negative Normal NEG [facility] Comment on above: Performed By: #### U HCG #### [facility] [address] [place], [place] [id number] Pattern Checker: Lakhwinder Tim MD , Urineon HCG ( test) Ql (U) Negative NEGATIVE [facility] Surgical Pathology Reporton 07-25-2023 Surgical Pathology Report (NOTE) Path Number: [id number] -- Diagnosis -- A. GASTRIC ANTRUM, BIOPSY: -MODERATE TO SEVERE CHRONIC GASTRITIS WITH PATCHY MILD TO MODERATE ACTIVITY. -H. PYLORI ORGANISMS IDENTIFIED ON AUDELIA STAIN. B. MID ESOPHAGUS, BIOPSY: -MILD REFLUX TYPE CHANGES. Lakhwinder Tim M.D. Electronically Signed Out 07/27/2023 Clinical Information Operative Findings: GASTRIC ANTRUM BIOPSY; MID ESOPHAGUS BIOPSY Operation Performed: EGD kb Source of Specimen A: GASTRIC ANTRUM BIOPSY B: MID ESOPHAGUS BIOPSY Gross Description AJudd BARBRA CLAROS, GASTRIC ANTRUM BIOPSY Received in formalin are two lizama-white tissue fragments from 0.2 to 0.5 cm and are 0.7 x 0.1 x 0.1 cm in aggregate. Entirely 1cs. B. BARBRA CLAROS, MID ESOPHAGUS BIOPSY Received in formalin is one lizama-white tissue fragment, 0.2 x 0.1 x 0.1 cm. Entirely 1cs. jj tm Merrick Umanzor M.D./kb2:07/26/2023 Microscopic Description A, B. Microscopic examination performed. Processing Lab: [address] [id number] Interpretation Performed at [address] [address] SURGICAL PATHOLOGY CONSULTATION Patient Name: BARBRA CLAROS [facility] Rec: [id number] [facility] CONSULTING PATHOLOGISTS [facility] ANATOMIC PATHOLOGY [address] [place] [id number] [facility] Coding Summaryon 06-22-2023 Coding Summary HTMLBase 64 SekjvbrbZFi3vVa+PGhlYWQ+P S7MCZElL97wuWAckF1fU4QQZY lOSywgQVBQTElOSyIgbmFtZT1 kaXNjZXJu IC8+DQ2jNUCnYdqgvMQcm3C2y TZ0N87moe8fLAhyeUV1YETqXc Vutdegt7ursOi9QRpzFfibJoW t BXBbxT92YPH1rZ58Xv16fGIck QJow9wmeUq2OeAuYSAeGKP5yG akOPwpw4HfDVZbI34eaLNnk1Q 6 XAJeqAnfmUMlQzNopND8aR1dF Qatjzhds0rdsfbuMqf2vg38yC Cei1R5lTW3J6VqqtB5BEAwhTS g AmdssLYCmM0masrxa3pzcizxC sWqPTKxBYo0FEv2KYQsxTqgWs VpEX20FVI9OZXtmqNwA7YuPQN s gIikUnG0e9U0Ch3HK4XJCsdhW 1VNTUFSWTwvdGQ+AV41yc11K8 OeHeftDsk7SLYtCWD8rUL9vL7 n WUInSMrfn6O2mEJ6J1GitsZaq k0hf1bwBWZlPVkgD24npZZms6 Y7DSRjxNF7QHQopQotNvBrfP0 3 Oyc+PLHztFkwy7OlBkdur7few 9igxZm2MjjfVGCrpxTxvOxvHM H6f6CyIe8aQXHuoTE5bXZ4jB7 i IfQlFcB6JUlpT353DdPmyJYmU zdcV43iX4FzhBE+EZZpZjf4DF RcfTzeYE0wH7TxHUVluwyvtCE m eBevQY5cAYRamhgtHMGtpE2vM YJzP7c4ArKfRlN8YTasY2RrWL FxsqdtPt43tL3mTxAoCgO3PSp u B2HxpeY5PNGlzNUaEQmfCZL0K 43ln1C5DJAnNASlYFQ0fDT5yM 1hbGlnbjogbGVmdDsgdmVydGl j RGvxRWgvS475ICJecBxsWcEwR GluZyBEYXRlOiAgMDEvMDQvMj AyNDwvdGQ+AXDfEPJ1sPosKOT n fTPjTEioLk8mlHdmeFkmEG1dI SIfjmbaXSIvjO3jWODfeORdsM doFY4hWIRuggcvv947XnKeISO 0 UWGkeUQtH1EcmV6fLlGxWIDhX ZIyE6LsiYDiFMpcB205GKnrZe A4CWZpfuAuC7ZwTCZqnHvkTrK 0 c5P8Jc1Ru8BprqdeX2GrhPTmV wPzLpciUKf1S2BkQihccYD+PC 39EDZoQA75OWr6MHK0gObeDGl i JJKqJ3GhtK7nIxGlWFZrYVAsJ yc+PHRhYmxlIHdpZHRoPScxMD UdUeJlkSwjDJ7rNh5nJAYpGYE v vOjavIZrUhXhj9tiEIKkQSgiR L7hjWitO3XdvPX1FJAnx6u4Jc 74O34nG5EneHC+WYTirBX0mLB 0 zL0dKfQuTsU0WTpnQ407UeYos OQbHipkp5mqz8nxyBg3XsA8KG YsayDrpNdsMPM3r7BdXl65A60 s IHdpZHRoPSIxNSUiIHZhbGlnb k8slU9mJx3+DHFdrTK5sOH9tK 7mEjVnElA0EYczX320FxCzzPA v Tfvxc8joa5zkwGe9HjAeDBIey xLwkYajUVI7x8AbDz54U2KogC smb8MuJnp2ug61jDUee3K8rUC 9 K5RdVBHasfewjUKarKlvER0mH WRlgkxoXAKpkB6oAJArO5k6Ct EaIdH7SDzmY0MyddI1KNEfmCM g KAUqyOVCeP1ndwtqo9qidyaxF zDbTMHyJTe4YAj4PNXpdYugKn UdPAV4DlG0MVD2nBNnpP2saZf n lrqxxB4iAtu+BVN0lGPpyTXSD B2oLdjoeCI+CLUiRXL4eItiFO jxXIGyhT8pUWHdZ0z5BpCeCfH 1 JYxeS3UeuaO7JGPhkVHaHULaw ZTSjU5xvrurd5yvufgtFvEoSG NjFWl6JSg0NHYqwRrsEzXcJIK 0 HqB6PGC3qRLtrF9bvSgifznmk G9wOyc+NhsczAjdBKC2UPz8P3 FvSro5QVCquSuqXQ8hlKVfCMj u Cv2khZsljDniDD8mTVPxmctdo 998BbGeg4bhIXQplEEbKQfxKY S1R39yn5D7XLUgLGIbCGF5lJL 4 sY8kyHlmeffonNOrcVqsjiYam ZelVAziKVopH315GHYbfOzqPf SrNNr3Z3HuHgk4ULKtxKurNT8 n tHJnKAdfWz7lbTlloVkpAV3vT QAffdnvc840RoNap7fjPDWzbX QmYMmnHYM6T08si3R3YRLbGKI w SDU8pFG8hQ4gtHyexfnsvJMfi ZxsjqFtiKruDFjfCEjjK333AF JreXlfFrAnhWn9I1DdFdn0DAD z sBjaTZ3eaMIrGWvrVa6irPxjn RbyZF8mAXFsogeuj754RoOfd7 cmVOBpwXHgLJsrFJR5B81eb8R 6 PMDnVKNlPBV9iDG7gN6ssPsxq jogbGVmdDsgdmVydGljYWwtYW ikE517HPAonRxpYtDtnZrbiwX g MHjsFLf2V2OgJihpiVG+PC90Y SMfTI99eUMxsUPew9wmtJl1Za CtUFTrUYW9kAiuGOfyh9XlGNN t K32zuGSbr3Y5NOFxuXrhkAGbB nFarMJ8qK4qQDkklokrv7sgmq azTksye5ihve91oA25D63bHKz p TPPlYTBpHTZeWSAxeKqizx6hw G9wIi8+SVKmhKR4nMH5eC2dOL WfQkX2RYtiC975TdFcjDYnPus j q7iyf1yfsTh8RyD6ELNwmhCfw PtjVDG2o5ZsDa25V66pIKsuOX VlLNSbWJZyOHNeyXymzc9bdU1 w Ii8+KBGvgKO7xQS8iJ4aHaNrS rQ7WIoaM738MpKtvMPlThylT3 8hJ0WgiPB+DZFaIqi7HFGtvMz s DV9skVNeEFumHv3pBTA0AlQaT iXwXIaeL2FvBBLzowzplkiccF G6CMAtIYVkoC52Cv9lcPuqZOT w uQEGgU6ozbups9vurzolUlPgB LMvRXn7NNd8QRJqzZzsQnCtDQ S5SoE8EHN7iKAqyZ3efGsgoae g nL1qS2PcWKAjblvnJt97bC6xF dHsAnF2QBlqJzc+N3iCF15EOG JHGBJPDR4NVOZNDCgIQrdhwDB + WCNaZYZ6cNlgRCyuOTVtsE5aO ENoZ1s0KeZyNsO8TFffN4XaNO RfwqidMg30tA8cVyGnUsQ9AYv u B6UpycM4YFJraPWeHKqpPIH3X 74xn0R7DHXaKPJwFXW7kDQ6tM 1hbGlnbjogbGVmdDsgdmVydGl j ZFzlDLikK733ZYNssLbiGoImR bG1MaU3FPH5F0SqTja3GFVtsF lkQS9qjNIsWAutHt1fqDvkwDp g OQ4fXFTumlgrAFZkaJ9sSKThv QZzxElhMP2wNMUspsdpx223Wc IuOUL4CEIbaQEuV8UhmC1bHmC j ONIjRJUlR2WcuRBaRZoyP407U AahOaM0IPTgflOpY7SlYBJprO hxDsJ8f0X7Ou1jXnFKNYYnycj v dGQ+BZEeHBM7jNvuVFjrRYRds Z6iMYIqQ9r2HnSdRdC2HZbwG8 EjVAAigpeoNx47lT8mHhEfJyN 1 LEceV7PyoyG5FEOqyJGrGKqiC JW7F17an2T1TSMcLFXfMDH6cR B9iX2rwEtbmjmfrFIckErkypO y dBrnGKckWYqnM345YLLfnOahQ kZFTUFMRTwvdGQ+SDZsDRP0nR zwRPkoDRSxoH4bLWQxU8w6HgM w XkS8MMelM1BfMASzlwbdTo46y I8eWfUvOxB4TTlhA8ZvvlG2GD AarCIoZNykHCI7R37at7N4OYV w CBCrPJV6vZE7tF7kkCpgodxst GVmdDsgdmVydGljYWwtYWxpZ2 73ZMEuoMfbSwDtOVNlJP5amKg v dGQ+UZ13sg11X3EhBhclGgu1M QAqYMX3tVL8lR7zLOCdZBjau2 W4wNS3U5YbjlLoab4wl3ldRUI z FWgyC20hbAVqg1V3RBOigKE0V MBgeUtrFsElgI56Dof+PGNvbG ihe5BlWvbzx8whu0hvdXj9OdV w XMSyisGbjQqrUDZ5q1NsBi60K 29sIHdpZHRoPSIzMCUiIHZhbG tliv0tnW5eNv8+ABYqaAM0yUQ 0 qX6fLkMeMmE3JVypN672EjGpt WDgNdafq4zst2slkFr6PbRhQO TsbdTbcOpgWAU2k5JbYe22I9C v eJysn9DjIbe4ct02pOUvh0G5g AJ8T4DaWTHdoeepbSPtsAekPK 0vWJRvxhxaCELlkF7tUFFcC7g 0 IgUbSuK7ARuvO8EixlS3ZGFox KOzYYLisDKWoD7boftvl8pzab yeIcEjODGaAMw2FNs5AWMqeTa u NtMmPPV4NrP8NLS4vRRadJ3wq AmocqyrkF9rIzi+TQc9k9aywM MqVT2bvOY8IA71VV12jPCrh5J 5 wCW2Z4GxNDQeoictmbtgiUH1T ISeYKKbxK18Zi6ybPbaEt2eVE KiQDU8FLUblYNpN5RjmI2qMrW j SXEhOZZzK3ZgeILhRKvqF050S WesNeJ5TOPewqVjU1GeFFHzpV kyElA4y2E2Zr6VXQ94DN22PM6 8 tZSwl2D0vHU5I2PtQMZrxjylh oqiuKH9UPVcBBQhrY02Ng1esB qxTp3sCYRlHMZ6CCKwvKHpQ0G v jZ6tMhSwKHTbOOQiJ4KjnHUjZ PkvM065PFzdBzB6BYKdwiVcH7 MwAWGoiQjsPrO4g0Z1Gr2NXl5 6 DG84AQ71pXGbw1F7bYV7U9OpK QUeommdvkhkbCL2ISWbWUVqbJ 28Us3skLyoVf1qCPLxDUE2NIB p iDMnP2NirZ0eBfEvEJMpKLSbH 1DthNOdEPcdS477JKdkKpQ7KQ BktpTdQ3PnVYLldTctVmW4b9I 7 Gf2ISQskrcm6Q6RwDzjihXF+P U89PDSuZZ79qSXvwSOca8rqkY e4ApZyFLMyEVC5cGvpYQidk0Q k ZXI (more content not included)... [facility] Coding Summary HTMLBase 64 JgnsxadmPOu5vJi+PGhlYWQ+P L7FDVJoR57hwDHtcM0lR6TJIA lOSywgQVBQTElOSyIgbmFtZT1 kaXNjZXJu IC8+SP6yBJCcLsqxkJBvn4M2y CU0R23fer6eHDbgcQW1ZICwRf Ledlpoy2svfVz1GHkiIrosOwH t MHGfdJ22HXU2kV82Nj67dLDkw CFnt8owbCy4BgBmUOCkFPJ3fW zgMIeqc9IlSKDmI04jbEVzo3D 6 DONmlSiesNBbHsKbmVN1oY3jV Jsvrhywh9wyymzsJpw8vc71lY Mjb5Q8nVC6A3IpshM8RSHqfUK g PromjLGHvY0nttosu6hgxrgnX xMsBPRxNGi2AGh0UAWwqVgnWz EsJL18JWO5SFEuraUwA6HjJYX s tXybClX8s6F2Oy8QU4TWOzkbZ 1VNTUFSWTwvdGQ+EE89sp80E1 QuFjedEus3RRCzJJN0iTH6aI0 n PZNfLBcmb2K4bCI5M7NqmyOar z4mj5niTFEtPQrfR35daQBtf6 D8NQIcqJK3BYPvnAazSuErdE9 3 Oyc+DDOldShcx2NzJjxuu4pju 6ijeVc2DbbbVBVzqbJizOxrEJ C8m8JjGk8eLAKwxHF6sXL3fN1 i BaJaTzT9YWcvP392IxVjjHTqK covO79aZ7LyoWA+YMWyNzy8IF TtyWwbGM0sI1TmBKGnbbjuwAY m sZuuCT2kYVKzyzsvZPLowP2mN KAbQ5i6MsSwQtU5ZWdtW9ZpVO MfwbmaSl18mF6oAxGtQfC5QGg u M7QlugO6OILgwNHdUEbtEOX8I 60nv0F1ALKkLEBjFOG4dBV9zV 1hbGlnbjogbGVmdDsgdmVydGl j OYrhQOowD762LSXjbJqpDsVwL GluZyBEYXRlOiAgMDEvMDQvMj AyNDwvdGQ+CYIrGWA8sDqtVFW n sRYvNMatRt9vmWpjwRjaDQ8kT YHypjvyUYZdeV3dHILbtMYthA tpPQ4mZNEigxzjx056GxUmWSE 0 TTAfeVFwC2XuxW1fQnIbFNImP CVwE1BfjKSqRSkwD438RSnuJr P7IQPbkwLvV2AvSPMktQsnJcE 0 g1U2Pe7Tq4PgpwmjC0JxyOMsD dZuOmddQSe8S3EiFcjklPJ+PC 06ZLOwEX42TRh7ALI0kYykXOy i KSDyC2EqeB3iDnIsRNFkZPBeH yc+PHRhYmxlIHdpZHRoPScxMD SgUhYicKjoQW1iHh9aKRNcJHJ v dLxgcTSfRqTrn3slPJYiYObbM T0lkTvqT4IyvVW3MEAaq8l9Ro 67L19pC3NxnJN+YKHtbRB5sJH 0 qN6uVkOcQvF0AKziE003HaVej EDiVsimh7dwg7atpPo0FjF2PH SjalWdlMdfTLA7q6VqRe71G54 s IHdpZHRoPSIxNSUiIHZhbGlnb l6vtS7dEm1+YHPljCA7xJT5xS 5oVgHzWtA5GJgfW705GlYgpFW v Xlwug2dgx7vutCh0RlHyCZKcy wIlbDpoVTQ4k9WtKi51Y4TjdX zcs8SlGka6ky49sXEfm9N8uHF 9 I2EjODDdgfuabABxoPzuXO5lW URltjgmYHAaxW9yBINgY4u1Tj KhBpD4CIwzX3JkfqB4DPXfcNT g RJWdlHEZmA5nbvuvw6juoakgG fZsFDLtSHb5CGa7IQFmuIhjCt RzOIE8UgA1ALE2mXSzaY3jtMc n vlkwzI9cHcz+NDD2dLWfzMVTT D4zKzozaVS+ECKgARZ5tJpdEP jhHEOimV9jDZEyV6m7YbUsEdQ 1 PCboP9QpccV0EUGfnRFdFJLuv FSPxH0focrzm1goyoicMyXaFC DhPFo3FTt0UOUjrMmoBgZvIAB 0 OmM1UGQ9wEGicT5xoAprkmnxz G9wOyc+UrizeMnhFKH5OLc7I0 ApKfs4MEPntLovPJ3qlGZbEEn u Ge1ymZnzjRuoWR9wEFDqwmtqv 946FaNwl0jmNUHcbCEmILiyKR O8A93yj9X0CBWzLAEsWXP7rEW 4 cB6owIsjstdkoTWlaDitvvAyb IrfDHsaBHcaJ118DPNwsHhiRp ZkJDc1V7UpVqz5AEAusCasQB6 n lKXtOMwoYx4jnBpgkStnIB2qN OZltcohp037NsTep2hhBWEdxM GoRNerGVW2Y93je5V8RWUqOLO w HMT9lCB2vD9umEzpldafhWWqy UxqskUuvYkqJSmtHSvaP229UF DxvAamUtEgiEf8A0BhOjn5MHF z hFsrHY7dmDWpCSjiOk4fcHnwr JfzOK4mCXFwuyurm533HjYdn8 seYEJllIXcJVwsVER5B92iq0P 6 STJoYSSpVJP5tEG7iU8zpJhio jogbGVmdDsgdmVydGljYWwtYW iiK634ZNJqbBlkBrNspDqdssE g TEllBYu8Z9LjNtkouFI+PC90Y LZlWO29lJWdhYUyh4ylnEn0Pj DkOMTxSFN6wQvkXRaef4PwDFE t A42yqIYtp8U7ROYvxZtygAQbF vIfgNZ3qR3sOOgntrkqn2uvii ttDuoeh7tpbq98mQ43W43wIMy p GEVaNVGzFXWkFPQrwPfege8fu G9wIi8+ORDfwEI7lMS9nZ3kKX UhUqX2MWmeU643ElHixLAcBku j p5phr2nwaHw0PlL0YILojfOyt VgoFEG6j3BzIo24E19lSXlsYB TcHCFmUDQeRNQycYbtwr3uvW1 w Ii8+FVFjyNY6xTI8wA6hEoTmE lD0MJnoY541JuEfrBCfAhslR9 2vO2BjcOT+DISvTcw4QFJbcSw s EU0tjERsLLeqZb5lDDC3FcTxI gRcXTxkS0UlBIRxvmgvilmcyF S6TGXzXQMbsN73Tw2mhAwvPKC w jFMYzU1pyknte2uovutjJhWcV FTrHIe3OFe0PNYueNzdUuXsSU J0ErZ0YPV8iYLrvJ6paAfvowh g zA7mH1ZsVEKbccgwSe01jB5eG xUqXxU8FQzmYen+H6jXE18LZY GUQCVWIS5YEBSHFSeMTjkiyPE + IBBgIVE4yFbdERraGTHkkN5iI LOuK1n6SoWhRnT3ZLxqF5LbKQ QeqeshAx80jM0vLmYbDiG8RFk u U8XmllQ1RQOfeCNeRGavXSU0H 05vt5G6UQRnUXCjOND0mMM8qK 1hbGlnbjogbGVmdDsgdmVydGl j MHepYKnsP199GWPbpSdiIdLuA tM4VeF2KFH5N4XnXlv5VXUtzI ehEG5saVXzKKmiDs5xzCgxaMd g ND0xPYWdrkdaOMSlaJ3dXUXcp OHqoBwpDB8rLWBtjssac908Xj TpUQN8ZCQkzTCqA1XphD0vXeU j QCSfELTtN9EtzXKxCSebL163O EsaGgJ6MZExatEaI3SgTXZhxT ozXcG9o4S8Uo6zMuYYTNXuzlj v dGQ+BODpXOK8hIojQXqaRPPpo Q8gEVUpA9k1KwYbRhQ3QPuhO6 FjGTJcigobDc57oU8wFkNlHdS 1 TKgaZ5JmwpB1WGDwgRRqVYdrI ON1S53xz8B8IGAiZUEkRDL1nV I9lR4uoYjcsugsuEHjmVwgqdZ y xBffMTcuZOoiQ002MPKsiRrfT kZFTUFMRTwvdGQ+FOMfAFT2fT zyGGjeFCPbjD8wRDYqA9t6DgY w RiR2JLryO6EaTRUardgpNg19l E3zSuHxAwR8AAlyF8IpvwB0AS VqmAZcNXfoHLF7S60ja8V9WDV w HIYnMCC7iLI3yI0neFnblqfvb GVmdDsgdmVydGljYWwtYWxpZ2 81RSHfoXuqZoLrRXTrZQ3jeRi v dGQ+KB60sv36T5IfTwbaSxa9S NOoBYS7hET4nK4fDYOdAEjip0 E4lYZ9T5JritWhri0eq3hqVBW z PPcuB80zqFStp0B6YVPprEF9G MQcpLwxFjWuaO92Fgs+PGNvbG yon5YsDsebk1ucb5eckUg3BgS w JDOumyOqdFvcKBN9a8GlKo97W 29sIHdpZHRoPSIzMCUiIHZhbG uzey3mbT2eHj3+SXGhaUA8sOV 0 oZ6sLmToHkT4IQriA815DpBwa VKlWfrbr5qqo9xwoFl7OcJcHW QrvaRyrKbcMXO7n7XaKw18T0A v rWxze6VoSmn8rg19rWCbr2F0j OA9H4IzGGBdiedvnERqfUklVR 9nASAfyhbjHSWiiC2rXFMjP4l 0 MjGyWkI0BLnoX2DzfqN1UZKyx AOlDPExqPJSoV7ghfcff9csxa huEdReLKLoIYo8CBu7RANdkIv u ZnYtHTH3XvI8YSL1gVGmqI0jw EzpfvcvhJ4fEbo+MVt5e0bzaF DzMB6gwYI9VT52YO36tDTnf1Q 5 gSM9F9BfQTEjrclghzsgkRY3G FUwHZWajS49Gj0inOqsXd1zWE GvDEQ6FXErnDZhA0TjcK0sBzV j PUJhKWMtX0WavQDzSBoiJ541C VuwHeY5PFGczxRmA6BrFYXhsM hyDhX0d0V2Qx5RYY41NA34ZD9 8 eSUob9O5oLG6K2ZiZVZselxxx ojvcST2TOZoOLXmwH95Xg4nmK xtEr8uFBOaEQX4PQJoiADgP3B v eC1cOwGbEUFhRONvH4GxuDEpG GkdW148BPmzKhA3PVAjbmZrG7 NtVMNwxEgiErU7a3W9Lp8FLy6 6 ET39LQ82bOGpa2P6jOW5A1HdG ATfzkmsibicjMW2STRuVRYxfI 72Ye6ecSewZi2pLCSiODF2NPQ p jMMsP0JirN1yDgYrSEZtQZPzQ 3JgxIXqXMwsH630EVidWuC8OI JydbRaS0DvDWQcoHaiUuG9p0O 7 Tx8SAFqxlub1P3GcPjvgbKM+P S15JLRbOK79eNIadPIyw7syyV x4CsYtKTDjWFB0bNinAAgib7N k ZXI (more content not included)... [facility] Coding Summaryon 06-16-2023 Coding Summary HTMLBase 64 WposgkkmSOo2lJz+PGhlYWQ+P E8HPDCsR98jkDGhvM1sI8EOLD lOSywgQVBQTElOSyIgbmFtZT1 kaXNjZXJu IC8+MT9eUKRoIgnmaYSrs5M4t RL1P10ueg9sMWsacII8DQGzUv Cthouyu8rgzMj7EEbtDgszDuF t CHNjvB71QXI9rR47Lv86zKQkb TVeu2oyyFy4TmWxOSXkCOP6xG lpYIriu8HkFRPdQ76ayUDvl0D 6 BVGdrBdwoFOoTqVrcSG7dT5wT Uiukjjjn3ukxnxaJck2gc59cC Swa5T2fWA5Q9SjggA2TCCmhCD g GjtgxYCGiR3byxjpo8telrrgH kDnDIOvBPl8EPz2CPWjwBthRr WtMO47CJX1YGXspmUcP5QuREZ s rMgrObV6j9I7Wq3LC8KXSodvX 1VNTUFSWTwvdGQ+YE68kk00W5 SvKvrxDgu9QYSrVTI3vIJ8gH0 n LCGgURhvf4S2oBT7W8RvweEkt c2yd0ooEDAnQVizV92qiKHsc9 G8CYZyqXR5CHVdkAcbYcBlrX3 3 Oyc+OUXjyGnvi7GcRksvf3ixs 3hreMr8KggmFBEwlcZsnPhiUA H2k8VjXe4gHAOgdJC8bZP8aX8 i HiLkKpS1RXeqV844DfUexGOwP ipjP03cN1SujTS+LPLrXvi0DR KndEwsDC1xD7DrVXJhnymtsPW m pBzjVX6sEZUftcvyFJTtqQ6aS CWvA4q9TtQcMkA5RLwwV7AtCJ YrepmuKr76vW6eXdWnUmP6XRn u V5WffdO2YHAcaSQpPEdlCSO5R 48tq2K4RQPyYPXlGKT1uIU9qD 1hbGlnbjogbGVmdDsgdmVydGl j BOekLMedC114FMWenJktNmOeN GluZyBEYXRlOiAgMTIvMjkvMj AyMzwvdGQ+MEKhLWN4kWriPEA n sIOcARlvZm3iiLylkMvxAO9lY QXjkstoRAHqhZ0aBLCjwRPckB qiTF1bQORczkrwo975PiXgHNF 0 NPDxsFWhH0NrqM0mScBaODZfU QWcN1TkzFXvOPjsO384EMpqUx S2IEZsaxWyE9TzIVWciSvyOnX 0 k4Q3Yw2Pn4VjadutZ2JzoQPkT pMuKognTWv3V9BnWhzyrHG+PC 16PVXwHL52JSq8HTS2sWubCHw i IOYuT2AtxF9kGkKqLRKiFGWzD yc+PHRhYmxlIHdpZHRoPScxMD BkUvQqbQrhDH5uXr2pGKPlFCM v wVuenOLtDiQgf1moDOQjMUotH B6yyDbuF5FicYQ1RUQhi9x6Ta 46I33mM5WkpSK+BFMnxRV8nPN 0 lJ1oUzZoHxF1EDybU951WfEwx HCzAljud5atc4kysIz5NcX3TK QmezKipPjkSOM4m5ItAm49Z20 s IHdpZHRoPSIxNSUiIHZhbGlnb n7lxZ4dMv4+BLNtxLJ9lMT4eK 0hHbDcFuC7YQftV801DtHshAP v Jjqaq8lsk5disOv9NiNjTGXge dJfmIgqMPK5m2CgUy93S8TqoT fvh1MwKzi9mc37bIWdv3G7qAQ 9 J3FgHIJqhgsjyKQxrTwaCN2pA AVjbxsfBWUkrW7nLJKkR9r9Vz EyVzB4BFhrL8OcsdQ3XBIoxYY g PCCmuBXIlL6imeszr5rxxlwlI qQxOEQxCYa4JTb1OSIbjOwdUx WtUMW0RaC6DFB0rNOkbM8cpDc n lehojM0yKcr+UYD4cCYmrLJSL T7vIcnaiRB+DDKvKIF8mIqlHD xnNIAcsD9pAFXdQ2h2JeWsKdF 1 RBvlN1SyqoZ7NJVsfZBdOPGtj WGGmR0qsucmv3orfdmjJiOvCD BfWCx2JHi8RCKemDwwKyXlMRT 0 ErH5AHX4bKRjdQ8tjVucsapec G9wOyc+VedejZzsMDB4PVd0B7 JmYbi4HPMmwHddXB6plTLhTRd u Nx4yoMopjHzxXT1iXGNkzpmce 364ZdLrv9huNEMfbGWuDSvkKI N4Q78wr2O4QFUvDHCoBIJ3mWQ 4 yX5hfDaddowdkEQibPxtnmXfr XgbHIroOTobT080UMZtqWvgWm HmIIr4Y9LfQqe0DVRopUrhDG6 n hDAxKKqzSb1adJamgBjyOR4kW ZOakrykf180PwQnh7sfJZHslA FaSOvuMWE6S12sx7U1LVPxGIV w GEB7tHD8pK0xtUmvjxwbqPDty FjoqhOakKngRZqdIQueX028GB LsjEuxLtBsaVm1W9MwRvz7LGT z oOdbOL3fgTKuQKeuZi0oqAicl RahCO8tFMPaquwrr968PcKwd6 qsVRKkrOXxJVxzVAX7R68my0C 6 MSUhAKBtMBF3uDJ7tW4wyTcnv jogbGVmdDsgdmVydGljYWwtYW bzH055WSZucGmtXoPhfFfkzgQ g HIenPWj3F6HeHhzlaYI+PC90Y RYmVZ65lMZwtMTds4qoyKk6Rr VxMKPlXTF0mTdlIHvxq6NhZEZ t J02irVQva6B1ZSHgrMvmgGTkM oCwiZN0cU1aBIzptysup9dhal ltGrbxv9pvwt23nK58D18hTUl p XOCmYZCnUPOmIJWugGnqkz8ho G9wIi8+NINewPB5tQP0bB7jMS CpJgW8EEviJ963GpWssZVeAmc j p8xxl0iemOj9QdV7KAZeviOex PkbKPY5d3YaWz68N06rGOblDQ XrTVXaTMXzBYKllXtviw9ozP3 w Ii8+MDBuiLC7hWD6kX4vVmFtD vK1NEddR741QzPejHDjFarpS6 4lA9EeoHZ+DCVqTxa2RSKciLk s YA3kzKPbEWbeYl7yDTJ2MnHnW hCoQEghA2YnBJAezqfwjssswM E6BXHmBPZwiF74Cj8hrNyrGDC w uZXOiN9gkajoi8tjkdssQwUjQ ECmLIh6ERr5KVGxnMjiBkJkCG Z9WtT9BIM8wZXmoO0gsNunvja g dN4dZ3FlGNDtpjqcZk92iE5eU gCgVkS5RJadKyw+Q0bUT22PTW EYXAABFO9GGPRDRHqGXmxzeZL + POSgHUX1zAoxMTdnKTCbkD8zL XFpZ0q0TpFmGyV1CKbdM5BzDH XxyxsgKb26hB8aMrDjMsX4UBl u U1QaotA6UCNzqBQoTBpvGMS8Q 61ki1U5MDYrNFDoYNH1tIZ4xS 1hbGlnbjogbGVmdDsgdmVydGl j FCckUAgjO561WILivMmtKjNyX cF9VeJ9ZKN4B6CuXwv8IBDbiB zwYK8vxCVtZIrkBx0smXejzNm g HG3zGRKiyadmWSRnmE5jUTBvg QUivOxmCX8aTTFufseqx322Yb KpAZE0QKXebPFnM5FlhR6nSvF j VPDpHVGyI9VraJBvYPetE050M SbiCjY0PRAhajPhC5QsJNHruV zaJeK1g5X5Np5pKtXSIMQiszv v dGQ+GBQzYTF9aCpdWAbpSULll C6jXPOoM1d7JzJlMhZ9EAcyG9 XjPVRbvytsMp16fT6gBzLfKpK 1 MRehE0FuunX4IUHnzMOwZPapH TR9V53mk1W1IQPaOPEtVIU5mG M3bO7eeLyjlqzrjCVvgIdcswS y tSrtBBldVUnkE996JSOhrStoG kZFTUFMRTwvdGQ+QASeFXC0jM yqQIhhPJKyoD6rKDKeM6c6SgS w OjD1ZLdlN7NwPVYzyevlYg26i Z2qIyXyItO8PTbjZ8RsohB4ZA GioVTwRHdpKWC2B43vm4N8QIF w OTLcEJE8kCF2eR1hfLefszcuq GVmdDsgdmVydGljYWwtYWxpZ2 59WRDiqVdhGg9NWW87FD04R9F y PjwvdGFibGU+PHRhYmxlIHdpZ SGyTJbvKVIxUwPqmVeeCK2bPf 9nPZRiEOYhoUdviWKiCmFff7j s HWIuSHukRD9ybDpvC3ZcyTE1C UCuw3j8Bo91B95jD8FgeVD+PG XrhTB4vZV9pC1eZnPbVwK3CKv p N206SyZuqFFaYwnvk1bop6twc Jo7WoCwXBFjttAaqSxzZGK4e6 DzQp10G00gZYkpEOMmNAYfDEW i ILTazEkwal2vlM2aFd9+PGNvb IM4uDW4cX6aGkQaZzS1EEwsM5 86LaHvgXCvLxguB35pI9XgpDV + ZQWqTfh2RVNsvBrnID9ceYAhS ZgiWk1sTNB6KuJgSdXnMZtbC1 QgRRYuhjxlclbtbAN6DTDaXAM w rZ16Rd8ppXfgMv1kNOXlQAD1R CEvbGSjT2VrfN9jTfShAQMoQE ExW4UfwOHvUWjbV941SIoyOvA 7 LURgmfKxA3VxHFVusFhrJiO5q 9M5Lw5YoMhhvWRvDN0zYdQrIP t1P6FaOfs5EDMgcCzaFO8qrLQ k IGvoDi4kxYihkTclGA7zVZNmj kqod701CcAes9nvKTKxbXKpAA qiPVZ1J47bb1G4RGRuDGRhDOJ 7 qCF4jK7wfMadwitbzOThmVjhq pZpkMvlAMhrGCdbD705LVDgaM krOmWFKfc1T5GoEbq5MBYcyPi s IG2ehKQgUUxhWn9ceZdktXzeQ R3rBDViqlttx699HzOoq8khKQ QllUEaFWrlKNO2Q98yj1P6OPQ w GYKuQBQ0lJT7yC7noIxaqogmh GVmdDsgdmVydGljYWwtYWxpZ2 37OILjjBviOr5ENuy2V4UtJsx 0 KDYhaHbsEK0imAIxJQyqDb1ce FadvIwvDN1tCYVtjmxlg406Dy Ggy2qgUBColRByOYgkBOL7Q55 s m8S7SOAiKURgKZQ0lEP4hO3ds GlnbjogbGVmdDsgdmVydGljYW etRSglJ396NPHohMomWuHppNH y OjwvdGQ+CV21gg30M3OlCqdeR pt4RKUaHHG1yGA4hZ3eKTKyAJ jae7L3pHV0Q1EjwuHteh3gx0e s YXB (more content not included)... Normal [facility] .Auto Diff 06-09-2023 Auto [place] % 8 % Normal 06-30 [facility] Comment on above: Performed By: #### 1 [id number], [id number], [id number], 6116062, [id number], [id number], [id number] ####[facility] (DEFAULT)[address] [place] [address] 27794 Baso Abs# 0.0 x10 Normal 0.0-0.2 [facility] Comment on above: Performed By: #### 1 [id number], 33321614, [id number], 2535899, 1388118485, 1738396660, [id number] ####[facility] (DEFAULT)[address] [place] [address] 81477 Basophils/100 WBC (Bld) 0.4 % Normal 0.2-2.0 [facility] Comment on above: Performed By: #### 1 [id number], 29128296, 9439565419, 1344409, 0981228591, 5013696035, [id number] ####[facility] (DEFAULT)[address] [place] [address] 10838 Eos Abs# 0.2 x10 Normal 0.0-0.4 [facility] Comment on above: Performed By: #### 1 [id number], 58407948, 4772985377, 7918848, 2150869779, 0853118431, [id number] ####[facility] (DEFAULT)[address] [place] [address] 13118 Eosinophils/100 WBC (Bld) 2.4 % Normal 0.9-4.0 [facility] Comment on above: Performed By: #### 1 [id number], 50450824, 7152150438, 5638663, 7757032079, 3179994478, 0604878659 ####[facility] (DEFAULT)[address] [place] [address] 03699 Lymph Abs# 2.3 x10 Normal 1.3-2.9 [facility] Comment on above: Performed By: #### 1 [id number], 98663344, 2889834846, 8886677, 7562965968, 9063089306, [id number] ####[facility] (DEFAULT)[address] [place] [address] 33803 Lymphocytes/100 WBC (Bld) 35 % Normal 14-48 [facility] Comment on above: Performed By: #### 1 [id number], 77564525, 0064400242, 0307517, 1878457506, 1954709360, [id number] ####[facility] (DEFAULT)[address] [place] [address] [place] Abs# 0.5 x10 Normal 0.0-0.8 [facility] Comment on above: Performed By: #### 1 [id number], 15224505, 5523598946, 3565721, 9339550042, 8187122642, 4503856256 ####[facility] (DEFAULT)[address] [place] [address] 80993 Neut Abs# 3.5 x10 Normal 1.5-9.2 [facility] Comment on above: Performed By: #### 1 [id number], 45758421, 1279741429, 7432084, 6068424001, 2067421078, 6595038698 ####[facility] (DEFAULT)[address] [place] [address] 78474 Neutrophils/100 WBC (Bld) 54 % Normal 44-88 [facility] Comment on above: Performed By: #### 1 [id number], 21549143, 8519938712, 7812732, 0215496084, 4034350394, 6303291377 ####[facility] (DEFAULT)[address] [place] [address] 43380 CBC w/ Auto Diffon 3 Erythrocyte distribution width (RBC) [Ratio] 14.9 % Normal 11.5-15.0 [facility] Comment on above: Performed By: #### 1 [id number], 22282673, 9524456539, 9212804, 0296424608, 7666669130, 3027897487 ####[facility] (DEFAULT)[address] [place] [address] Hematocrit (Bld) [Volume fraction] 34.8 % Normal 33.7-40.4 [facility] Comment on above: Performed By: #### 1 [id number], 76912542, 1540473085, 2403758, 0031380773, 1979060576, 5515338831 ####[facility] (DEFAULT)[address] [place] [address] Hemoglobin (Bld) [Mass/Vol] 11.6 g/dL Normal 11.3-15.9 [facility] Comment on above: Performed By: #### 1 [id number], 83733496, 4059920379, 3037132, 0154018564, 6609751446, 5728062803 ####[facility] (DEFAULT)[address] [place] [address] Man Diff? Auto Invalid Interpretation Code [facility] Comment on above: Performed By: #### 1 [id number], 94796769, 7580641957, 1092550, 3002386055, 6902394085, 8294854489 ####[facility] (DEFAULT)[address] [place] [address] MCH (RBC) [Entitic mass] 28 pg Normal 24-34 [facility] Comment on above: Performed By: #### 1 [id number], 73477520, 0882986381, 9221170, 9208927388, 0776718603, 5494009754 ####[facility] (DEFAULT)[address] [place] [address] MCHC (RBC) [Mass/Vol] 33 g/dL Normal 26-37 [facility] Comment on above: Performed By: #### 1 [id number], 99332448, 2782696002, 3848115, 9642429492, 6374602172, 6733176439 ####[facility] (DEFAULT)[address] [place] [address] 78706 MCV (RBC) [Entitic vol] 82 fL Normal 81-100 [facility] Comment on above: Performed By: #### 1 [id number], 53073345, 3993247921, 0296488, 0248886566, 9885485788, [id number] ####[facility] (DEFAULT)[address] [place] [address] 64482 Platelet 227 x10 Normal 138-427 [facility] Comment on above: Performed By: #### 1 [id number], 98952599, 6836810527, 1639433, 8560950490, 2628847298, 4259750549 ####[facility] (DEFAULT)[address] [place] [address] 74862 Platelet mean volume (Bld) [Entitic vol] 7.8 fL Normal 6.3-10.2 [facility] Comment on above: Performed By: #### 1 [id number], 95942922, 5387365093, 6212394, 9266307252, 5440124090, 5538609472 ####[facility] (DEFAULT)[address] [place] [address] 98437 RBC 4.22 x10 Normal 3.70-5.30 [facility] Comment on above: Performed By: #### 1 565763279, 91368283, 5708303508, 0440384, 0592379008, 5099616260, 8446178937 ####[facility] (DEFAULT)[address] [place] [address] 32683 WBC 6.5 x10 Normal 3.5-10.5 [facility] Comment on above: Performed By: #### 1 [id number], 49289266, 2380883914, 0345955, 2397819821, 1496065730, [id number] ####[facility] (DEFAULT)[address] [place] [address] 69974 CMP Standardon 12-22-2023 eGFR Non AA >60 Invalid Interpretation Code [facility] Comment on above: Performed By: #### 1 [id number], 84320591, 9803112977, 5515163, 5297781606, 9274730489, [id number] ####[facility] (DEFAULT)[address] [place] [address] eGFR AA >60 Invalid Interpretation Code [facility] Comment on above: Performed By: #### 1 [id number], 92845949, 0255887017, 2506975, [id number], [id number], [id number] ####[facility] (DEFAULT)[address] [place] [address] Albumin [Mass/Vol] 4.0 g/dL Normal 3.5-5.0 [facility] Comment on above: Performed By: #### 1 [id number], [id number], [id number], 5503439, [id number], [id number], [id number] ####[facility] (DEFAULT)[address] [place] [address] Albumin/Globulin [Mass ratio] 1.0 {ratio} Low 1.4-2.6 [facility] Comment on above: Performed By: #### 1 [id number], 60114965, [id number], 9275995, [id number], [id number], [id number] ####[facility] (DEFAULT)[address] [place] [address] Alk Phos 60 IU/L Normal 32-91 [facility] Comment on above: Performed By: #### 1 [id number], 62477145, [id number], 0403464, 1469904294, [id number], [id number] ####[facility] (DEFAULT)[address] [place] [address] ALT [Catalytic activity/Vol] 25.0 U/L Normal 14.0-54.0 [facility] Comment on above: Performed By: #### 1 [id number], 48596669, [id number], 3294840, 3239444123, 1388047056, [id number] ####[facility] (DEFAULT)[address] [place] [address] 99855 Anion gap [Moles/Vol] 10.8 mmol/L Normal 5.0-19.0 [facility] Comment on above: Performed By: #### 1 [id number], 36632196, 6324630300, 7342160, 9219455083, 7049942274, [id number] ####[facility] (DEFAULT)[address] [place] [address] 24689 AST [Catalytic activity/Vol] 22 U/L Normal 15-41 [facility] Comment on above: Performed By: #### 1 [id number], 65271954, 2116786787, 4362566, 2729769701, 3106630039, [id number] ####[facility] (DEFAULT)[address] [place] [address] 25019 Bili Total 0.4 mg/dL Normal 0.3-1.2 [facility] Comment on above: Performed By: #### 1 [id number], 95719827, 3079247294, 7202329, 0842705714, 3148865376, 7311232471 ####[facility] (DEFAULT)[address] [place] [address] 99908 Calcium [Mass/Vol] 8.7 mg/dL Low 8.9-10.3 [facility] Comment on above: Performed By: #### 1 [id number], 40700198, 6446751177, 9508602, 0520012363, 9879816818, [id number] ####[facility] (DEFAULT)[address] [place] [address] 73030 Chloride [Moles/Vol] 107 mmol/L Normal 101-111 [facility] Comment on above: Performed By: #### 1 [id number], 40540781, 3161162579, 5756083, 5980997601, 4959393503, [id number] ####[facility] (DEFAULT)[address] [place] [address] 77614 CO2 [Moles/Vol] 23 mmol/L Normal 21-32 [facility] Comment on above: Performed By: #### 1 [id number], 16152664, 7456681272, 7088404, 8868376168, 7197962271, [id number] ####[facility] (DEFAULT)[address] [place] [address] 80551 Creatinine [Mass/Vol] 0.53 mg/dL Low 0.60-1.30 [facility] Comment on above: Performed By: #### 1 [id number], 76705193, 2406499484, 6268712, 5010360545, 3667222694, [id number] ####[facility] (DEFAULT)[address] [place] [address] 37719 Globulin (S) [Mass/Vol] 3.8 g/dL Normal 1.5-4.3 [facility] Comment on above: Performed By: #### 1 [id number], 28429276, 9495590680, 6711327, 5005409711, 4197919588, 2115721165 ####[facility] (DEFAULT)[address] [place] [address] 86016 Glucose [Mass/Vol] 92.0 mg/dL Normal 74.0-118.0 [facility] Comment on above: Performed By: #### 1 [id number], 54132051, 0192422149, 0151917, 6322272304, 9373763048, 3570309616 ####[facility] (DEFAULT)[address] [place] [address] 29204 Osmolality 272 mOsm/L Invalid Interpretation Code [facility] Comment on above: Performed By: #### 1 [id number], 05054670, 7806801933, 8190757, 1304649647, 7290405879, [id number] ####[facility] (DEFAULT)[address] [place] [address] 38523 Potassium [Moles/Vol] 3.8 mmol/L Normal 3.6-5.1 [facility] Comment on above: Performed By: #### 1 [id number], 25080785, 7408249519, 1933452, 7776412303, 8928531177, 3886018328 ####[facility] (DEFAULT)[address] [place] [address] 20350 Protein [Mass/Vol] 7.8 g/dL Normal 6.5-8.1 [facility] Comment on above: Performed By: #### 1 [id number], 80315962, 4512242933, 2964075, 0690904194, 3086186403, 7580433160 ####[facility] (DEFAULT)[address] [place] [address] 96196 Sodium [Moles/Vol] 137.0 mmol/L Normal 136.0-144.0 [facility] Comment on above: Performed By: #### 1 [id number], 94910210, 2759068531, 7349139, 3574871060, 9130605875, 2109760031 ####[facility] (DEFAULT)[address] [place] [address] 68643 Urea nitrogen [Mass/Vol] 9 mg/dL Normal 8-26 [facility] Comment on above: Performed By: #### 1 [id number], 08734135, 7969867694, 9848144, 6452823681, 8004872397, 9155167181 ####[facility] (DEFAULT)[address] [place] [address] 23504 Urea nitrogen/Creatinine [Mass ratio] 16.9 mg/mg High 4.6-16.2 [facility] Comment on above: Performed By: #### 1 [id number], 19806645, 8237674732, 9058434, 6276594713, 7536162524, [id number] ####[facility] (DEFAULT)[address] [place] [address] 65610 ED Clinical Summaryon 2022 ED Clinical Summary [facility] - Emergency Department [address] [place] [address]18 ED Clinical Summary PERSON INFORMATION Name: BARBRA CLAROS Age: 27 Years Sex: FEMALE : 1995 MRN: Acct#: Visit Reason: Dizziness; Headache; MIGRAINE, DIZZINESS Arrival: 06/09/2023 11:32:00 Discharge: 06/09/2023 13:05:00 LOS: 000 01:33 Check In: 06/09/2023 11:32:00 Checkout:06/09/2023 13:05:00 Address: [address] [place], [place] [id number] PCP: Provider, None PROVIDER INFORMATION Provider Role Assigned Unassigned Anjel Yates MD ED Provider 06/09/2023 11:33:05 Renetta Stern FRONT END SOFTWARE DEVELOPER Nurse 06/09/2023 11:46:14 VITALS INFORMATION Vital Sign Triage Latest Temperature Tympanic Temperature Temporal Artery 36.7 DegC Pulse Rate 87 bpm 45 bpm O2 Sat 99 % 99 % Respiratory Rate 18 br/min 18 br/min Blood Pressure /88 mmHg /88 mmHg MEDICAL INFORMATION Medications Given: Medication Dose Route SUMAtriptan (Imitrex) 6 mg Subcutaneous Sodium Chloride 0.9% intravenous solution 1,000 mL 1000 mL Initial Volume 1000 mL/hr IV Right Antecubital Fossa ketorolac 30 mg IV Push ondansetron 4 mg IV Push metoclopramide 10 mg IV Piggyback Allergy Information: Triaminic Allergy; chlorpheniramine/dextrome thorphan/PSE PHYSICIAN DOCUMENTATION DISCHARGE INFORMATION: Discharge Disposition: Home Discharge Location: Home PATIENT EDUCATION INFORMATION Instructions: Migraine Headache, Daum-vw-Wcxe Follow-Up: With: Address: When: Follow up with primary care provider Within 3 to 5 days DIAGNOSIS: 1:Migraine headache Patient Understands: Yes - Patient/family/caregiver verbalizes understanding of instructions given Comment: Normal [facility] ED Patient Summaryon 023 ED Patient Summary [facility] - Emergency Department [address] [place], [place] [id number] PATIENT DISCHARGE INSTRUCTIONS Patient Information Name: BARBRA CLAROS Age: 27 Years Date of : 1995 Reason For Visit: Dizziness; Headache; MIGRAINE, DIZZINESS Arrival Time: 06/09/2023 11:32:00 Primary Care Physician: Provider, None Attending Physician: Anjel Yates MD Comment: Visit Diagnosis: Diagnoses This Visit Dizziness ([id number]) Headache ([id number]) Migraine headache (G43.909) The Pharmacy at [facility] is open Monday through Monday from 9A to 6P and Monday and Monday from 9A to 5P Prescription Information: If you have been given a prescription for narcotics, seek immediate medical attention if you have any difficulty breathing or any sudden status changes such as confusion and sleepiness. If you or anyone you know is experiencing suicidal thoughts, mental health, alcohol and/or drug addiction problems; contact the [facility] 09/01 Crisis Hotline -text 4hope to 562198. If you received any narcotics, sedation, or any other medication that causes drowsiness for the next 24 hours, unless otherwise directed: ? Do not drive a car. ? Do not operate machinery such as power tools, lawn mowers, drills, sewing machines, or stoves ? Avoid alcoholic beverages and drugs for allergies, nerves, or sleep ? Do not make important personal or business decisions or sign any legal documents With: Address: When: Follow up with primary care provider Within 3 to 5 days Medication Information: The exam and treatment you received today in the [facility] Emergency Department were for an urgent problem and are not intended as complete care. It is important for you to follow up with a doctor, nurse practitioner, or physician?s employee relations assistant for ongoing care. If your symptoms become worse or you do not improve as expected and you are unable to reach your usual health care provider, you should return to the Emergency Department, we are available 24 hours a day. For those patients who have received Radiology results, the interpretation of your X-ray as given to you by our Emergency Department physician is only a preliminary report. The Radiologist will review your films and if there is a change in the diagnosis you will be notified by phone. Please make sure you have provided a working phone number so we can reach you if necessary. In the event that you had a lab culture while you were a patient in the Emergency Department, you will be notified by phone if there is a need to change your antibiotic. Please make sure you have provided a working phone number so we can reach you if necessary. [facility] Emergency Department has provided you with a complete list of medications post discharge. Please inform your lens mold setter/provider of your visit and for further instruction on these medications. Any specific questions regarding your chronic medications and dosages should be discussed with your primary care physician(s) and/or pharmacist. New Medications [facility] [id number], [address], [place] [id number], [phone] rizatriptan (Maxalt 10 mg oral tablet) 1 tab(s) Oral (given by mouth) every day as needed for migraine headache. may repeat dose every 2 hours up to a maximum of 30 mg in 24 hours. Refills: 0. No Longer Take the Following Medications SUMAtriptan (SUMAtriptan 25 mg oral tablet) 1 tab(s) Oral (given by mouth) every day as needed for migraine headache. may repeat dose after 2 hours up to a maximum of 200 mg in 24 hours. Additional medications on your home medication list not specifically addressed. Please contact the ordering physician if you have questions about these medications. escitalopram (escitalopram 20 mg oral tablet) 1 tab(s) Oral (given by mouth) every day. ethinyl estradiol-norgestimate (Sprintec 0.25 mg-35 mcg oral tablet) 1 tab(s) Oral (given by mouth) every day. ferrous sulfate (FeroSul 325 mg (65 mg elemental iron) oral tablet) 1 tab(s) Oral (given by mouth) 3 times a day (scheduled). medroxyPROGESTERone (medroxyPROGESTERone 2.5 mg oral tablet) 1 tab(s) Oral (given by mouth) every day. multivitamin, ( 19 ([employer]) oral tablet) 1 tab(s) Oral (given by mouth) every day. Refills: 0. Visit Information Allergies: Substance Reaction Symptoms Type Comments chlorpheniramine/dextrome thorphan/PSE Drug Triaminic Allergy Anaphylactic reaction Drug Vital Signs: Vitals and Measurements this Visit (last charted value for your 06/09/2023 visit) Vital Signs This Visit Temperature Temporal Artery: 36.7 DegC Peripheral Pulse Rate: 45 bpm Respiratory Rate: 18 br/min Systolic Blood Pressure: 106 mmHg Diastolic Blood Pressure: 68 mmHg SpO2: 99 % Oxygen Therapy: Room air Measurements This Visit (more content not included)... Normal [facility] Extra SSTon 06-09-2023 Tube Collected Yes Invalid Interpretation Code [facility] Comment on above: Performed By: #### 1 [id number], [id number], [id number], 3497948, [id number], [id number], [id number] ####[facility] (DEFAULT)[address] [place] [address] 87864 Progress Note - Nurseon 05-20 Progress Note - Nurse Patient walks to [facility]. Patient is alert and oriented. Patient is here for a migraine and dizziness. Patient has been experiencing it for the past two days. Patient has a history of migraines, which started 3 months ago after she gave to her child. [Electronically Signed on: 06/09/2023 12:29 EST] Leena September RN [Verified on: 06/09/2023 12:29 EST] Leena September RN [facility] UA w Culture if Ind Standard on 06-09-2023 Breakpoint UA [facility] Comment on above: Performed By: #### 1 [id number] ####[facility] (DEFAULT)[address] [place] [address] 63276 Color (U) Yellow [facility] Comment on above: Performed By: #### 1 [id number] ####[facility] (DEFAULT)[address] [place] [address] 17110 Culture? Not Indicated Invalid Interpretation Code [facility] Comment on above: Result Comment: Resu lt created by rule GL_MAGR_ADD_UA_[id number] Performed By: #### 1 [id number] ####[facility] (DEFAULT)[address] [place] [address] 37890 Glucose (U) [Mass/Vol] Negative [facility] Comment on above: Performed By: #### 1 [id number] ####[facility] (DEFAULT)[address] [place] [address] 69533 Ketones Ql (U) Negative Normal [facility] Comment on above: Performed By: #### 1 [id number] ####[facility] (DEFAULT)[address] [place] [address] 71487 Micro? Not Indicated Invalid Interpretation Code [facility] Comment on above: Result Comment: Resu lt created by rule GL_MAGR_ADD_UA_MICRO Performed By: #### 1 [id number] ####[facility] (DEFAULT)[address] [place] [address] 29337 UA Bilirubin Negative Normal [facility] Comment on above: Performed By: #### 1 [id number] ####[facility] (DEFAULT)[address] [place] [address] 54397 UA Blood Negative Normal NEGATIVE [facility] Comment on above: Performed By: #### 1 [id number] ####[facility] (DEFAULT)[address] [place] [address] 85416 UA Clarity CLEAR Normal CLEAR [facility] Comment on above: Performed By: #### 1 [id number] ####[facility] (DEFAULT)[address] [place] [address] 33158 UA Leuk Est Negative Normal NEGATIVE [facility] Comment on above: Performed By: #### 1 [id number] ####[facility] (DEFAULT)[address] [place] [address] 86035 UA Nitrite Negative Normal NEGATIVE [facility] Comment on above: Performed By: #### 1 [id number] ####[facility] (DEFAULT)[address] [place] [address] 81387 UA pH 6.5 Normal 5-8 [facility] Comment on above: Performed By: #### 1 [id number] ####[facility] (DEFAULT)[address] [place] [address] 52702 UA Protein Negative Normal NEGATIVE [facility] Comment on above: Performed By: #### 1 [id number] ####[facility] (DEFAULT)[address] [place] [address] 96888 UA Spec Grav 1.020 Normal 1.001-1.035 [facility] Comment on above: Performed By: #### 1 [id number] ####[facility] (DEFAULT)[address] [place] [address] UA Urobilinogen 0.2 mg/dL Normal 0.2-1.0 [facility] Comment on above: Performed By: #### 1 [id number] ####[facility] (DEFAULT)[address] [place] [address] Urine Source Clean Catch Normal [facility] Comment on above: Performed By: #### 1 [id number] ####[facility] (DEFAULT)[address] [place] [address] ED Clinical Summaryon 2022 ED Clinical Summary [facility] ? Urgent Care [address] [place] [address] Clinical Summary PERSON INFORMATION Name: BARBRA CLAROS Age: 27 Years Sex: FEMALE : 1995 MRN: Acct#: Visit Reason: UC - Cough; UC - Sinus Pain or Congestion; CONGESTION, NAUSEA, SINUS PRESSURE, HEADACHE Arrival: 06/04/2023 10:57:44 Discharge: 06/04/2023 12:05:00 LOS: 000 01:08 Check In: 06/04/2023 10:57:44 Checkout: 06/04/2023 12:05:00 Address: [address] [place] [address] PCP: Provider, None PROVIDER INFORMATION Provider Role Assigned Unassigned Francia Nation FRONT END SOFTWARE DEVELOPER Nurse 06/04/2023 11:00:21 Luis Alfredo Mitchell ED PA 06/04/2023 11:19:15 VITALS INFORMATION Vital Sign Triage Latest Temperature Tympanic Temperature Temporal Artery Pulse Rate O2 Sat 98 % 98 % Respiratory Rate Blood Pressure /68 mmHg /68 mmHg MEDICAL INFORMATION Medications Given: Allergy Information: Triaminic Allergy; chlorpheniramine/dextrome thorphan/PSE PHYSICIAN DOCUMENTATION DISCHARGE INFORMATION: Discharge Disposition: Home Discharge Location: Home PATIENT EDUCATION INFORMATION Instructions: Viral Illness, Adult Follow-Up: With: Address: When: Follow up with primary care provider Within 3 to 5 days Comments: Diagnosis is a viral illness. From history and physical exam I do not find any evidence of a bacterial infection. We did test you for COVID and influenza and these tests were negative. But from history and exam you have a viral illness. Supportive care is important. Provided with medication to treat cough. May use bdfx-xhe-zbhmowg cough and cold type medications, but make sure, you not allergic to anything ingredients in the medication. Keep hydrated. For any fevers take alternating doses of Tylenol and ibuprofen. Follow-up with primary care provider in 3-5 days for reevaluation. Return to the emergency department/ Urgent care for worsening symptoms or concerns, intractable nausea or vomiting, spiking high fevers, acute shortness of breath or chest pain, any questions DIAGNOSIS: 1:Viral respiratory illness; Other viral agents as the cause of diseases classified elsewhere Patient Understands: Yes - Patient/family/caregiver verbalizes understanding of instructions given Comment: Normal [facility] ED Patient Summaryon 023 ED Patient Summary [facility] ? Urgent Care [address] [place] [address] PATIENT DISCHARGE INSTRUCTIONS Patient Information Name: BARBRA CLAROS Age: 27 Years Date of : 1995 Reason For Visit: UC - Cough; UC - Sinus Pain or Congestion; CONGESTION, NAUSEA, SINUS PRESSURE, HEADACHE Arrival Time: 06/04/2023 10:57:44 Primary Care Physician: Provider, None Attending Physician: Luis Alfredo Mitchell Comment: Patient Education With: Address: When: Follow up with primary care provider Within 3 to 5 days Comments: Diagnosis is a viral illness. From history and physical exam I do not find any evidence of a bacterial infection. We did test you for COVID and influenza and these tests were negative. But from history and exam you have a viral illness. Supportive care is important. Provided with medication to treat cough. May use kqkd-cis-ykgagim cough and cold type medications, but make sure, you not allergic to anything ingredients in the medication. Keep hydrated. For any fevers take alternating doses of Tylenol and ibuprofen. Follow-up with primary care provider in 3-5 days for reevaluation. Return to the emergency department/ Urgent care for worsening symptoms or concerns, intractable nausea or vomiting, spiking high fevers, acute shortness of breath or chest pain, any questions Viral Illness, Adult Viruses are tiny germs that can get into a person's body and cause illness. There are many different types of viruses, and they cause many types of illness. Viral illnesses can range from mild to severe. They can affect various parts of the body. Short-term conditions that are caused by a virus include colds and the flu (influenza). Long-term conditions that are caused by a virus include herpes, shingles, and HIV (human immunodeficiency virus) infection. A few viruses have been linked to certain cancers. What are the causes? Many types of viruses can cause illness. Viruses invade cells in your body, multiply, and cause the infected cells to work abnormally or . When these cells , they release more of the virus. When this happens, you develop symptoms of the illness, and the virus continues to spread to other cells. If the virus takes over the function of the cell, it can cause the cell to divide and grow out of control. This happens when a virus causes cancer. Different viruses get into the body in different ways. You can get a virus by: ? Swallowing food or water that has come in contact with the virus (is contaminated). ? Breathing in droplets that have been coughed or sneezed into the air by an infected person. ? Touching a surface that has been contaminated with the virus and then touching your eyes, nose, or mouth. ? Being bitten by an insect or animal that carries the virus. ? Having sexual contact with a person who is infected with the virus. ? Being exposed to blood or fluids that contain the virus, either through an open cut or during a transfusion. If a virus enters your body, your body's defense system (immune system) will try to fight the virus. You may be at higher risk for a viral illness if your immune system is weak. What are the signs or symptoms? You may have these symptoms, depending on the type of virus and the location of the cells that it invades: ? Cold and flu viruses: ? Fever. ? Headache. ? Sore throat. ? Muscle aches. ? Stuffy nose (nasal congestion). ? Cough. ? Digestive system (gastrointestinal) viruses: ? Fever. ? Pain in the abdomen. ? Nausea. ? Diarrhea. ? Liver viruses (hepatitis): ? Loss of appetite. ? Tiredness. ? Skin or the white parts of your eyes turning yellow (jaundice). ? Brain and spinal cord viruses: ? Fever. ? Headache. ? Stiff neck. ? Nausea and vomiting. ? Confusion or sleepiness. ? Skin viruses: ? Warts. ? Itching. ? Rash. ? Sexually transmitted viruses: ? Discharge. ? Swelling. ? Redness. ? Rash. How is this diagnosed? This condition may be diagnosed based on one or more of the following: ? Symptoms. ? Medical history. ? Physical exam. ? Blood test, sample of mucus from your lungs (sputum sample), stool sample, or a swab of body fluids or a skin sore (lesion). How is this treated? Viruses can be hard to treat because they live within cells. Antibiotic medicines do not treat viruses because these medicines do not get inside cells. Treatment for a viral illness may include: ? Resting and drinking plenty of fluids. ? Medicines to relieve symptoms. These can include vcmz-pqw-tbjgwem medicine for pain and fever, medicines for cough or congestion, and medicines to relieve diarrhea. ? Antiviral medicines. These medicines are available only for certain types of viruses. Some viral illnesses can be prevented with vaccinations. A common example is the flu shot. Follow these instructions at home: Medicines ? Take yccx-qno-chztoda and prescript (more content not included)... Normal [facility] POCT Rapid CoV-2 (COVID-19) Antigen/ Flu A&Bon 06-04-2023 Influenza A POCT Negative Normal Negative [facility] Comment on above: Performed By: #### 9 [id number] ####[facility] (DEFAULT)[address] [place] [address] 26171 Influenza B POCT Negative Normal Negative [facility] Comment on above: Performed By: #### 4 [id number] ####[facility] (DEFAULT)[address] [place] [address] 22813 SARS-CoV-2 (COVID-19) RNA MARICEL+probe Ql (Unsp spec) Not detected Normal [facility] Comment on above: Performed By: #### 6 [id number] ####[facility] (DEFAULT)[address] [place] [address] Urgent Care [facility] 023 Urgent Care Record [facility] ? Urgent Care [address] [place] [address] 97522 PATIENT DISCHARGE INSTRUCTIONS Patient Information Name: BARBRA CLAROS Age: 27 Years Date of : 1995 Reason For Visit: UC - Cough; UC - Sinus Pain or Congestion; CONGESTION, NAUSEA, SINUS PRESSURE, HEADACHE Arrival Time: 06/04/2023 10:57:44 Primary Care Physician: Provider, None Attending Physician: Luis Alfredo Mitchell Comment: Visit Diagnosis: Diagnoses This Visit Other viral agents as the cause of diseases classified elsewhere (B97.89) UC - Cough ([id number]) UC - Sinus Pain or Congestion ([id number]) Viral respiratory illness (J98.8) If you received any narcotics, sedation, or any other medication that causes drowsiness for the next 24 hours, unless otherwise directed: ? Do not drive a car. ? Do not operate machinery such as power tools, lawn mowers, drills, sewing machines, or stoves ? Avoid alcoholic beverages and drugs for allergies, nerves, or sleep ? Do not make important personal or business decisions or sign any legal documents With: Address: When: Follow up with primary care provider Within 3 to 5 days Comments: Diagnosis is a viral illness. From history and physical exam I do not find any evidence of a bacterial infection. We did test you for COVID and influenza and these tests were negative. But from history and exam you have a viral illness. Supportive care is important. Provided with medication to treat cough. May use amap-goc-uiodjvt cough and cold type medications, but make sure, you not allergic to anything ingredients in the medication. Keep hydrated. For any fevers take alternating doses of Tylenol and ibuprofen. Follow-up with primary care provider in 3-5 days for reevaluation. Return to the emergency department/ Urgent care for worsening symptoms or concerns, intractable nausea or vomiting, spiking high fevers, acute shortness of breath or chest pain, any questions Medication Information: The exam and treatment you received today in the [facility] were for an urgent problem and are not intended as complete care. It is important for you to follow up with a doctor, nurse practitioner, or physician?s employee relations assistant for ongoing care. If your symptoms become worse or you do not improve as expected and you are unable to reach your usual health care provider, you should return to the Emergency Department, we are available 24 hours a day. For those patients who have received Radiology results, the interpretation of your X-ray as given to you by our Urgent Care physician is only a preliminary report. The Radiologist will review your films and if there is a change in the diagnosis you will be notified by phone. Please make sure you have provided a working phone number so we can reach you if necessary. In the event that you had a lab culture while you were a patient in the Urgent Care, you will be notified by phone if there is a need to change your antibiotic. Please make sure you have provided a working phone number so we can reach you if necessary. [facility] has provided you with a complete list of medications post discharge. Please inform your lens mold setter/provider of your visit and for further instruction on these medications. Any specific questions regarding your chronic medications and dosages should be discussed with your primary care physician(s) and/or pharmacist. New Medications [facility], [address] [place] [address] [phone], [phone] benzonatate (Tessalon Perles 100 mg oral capsule) 2 cap(s) Oral (given by mouth) 3 times a day for 5 Days. Refills: 0. Additional medications on your home medication list not specifically addressed. Please contact the ordering physician if you have questions about these medications. escitalopram (escitalopram 20 mg oral tablet) 1 tab(s) Oral (given by mouth) every day. ethinyl estradiol-norgestimate (Sprintec 0.25 mg-35 mcg oral tablet) 1 tab(s) Oral (given by mouth) every day. ferrous sulfate (FeroSul 325 mg (65 mg elemental iron) oral tablet) 1 tab(s) Oral (given by mouth) 3 times a day. medroxyPROGESTERone (medroxyPROGESTERone 2.5 mg oral tablet) 1 tab(s) Oral (given by mouth) every day. multivitamin, ( 19 ([employer]) oral tablet) 1 tab(s) Oral (given by mouth) every day. Refills: 0. SUMAtriptan (SUMAtriptan 25 mg oral tablet) 1 tab(s) Oral (given by mouth) every day as needed for migraine headache. may repeat dose after 2 hours up to a maximum of 200 mg in 24 hours. Visit Information Allergies: Substance Reaction Symptoms Type Comments chlorpheniramine/dextrome thorphan/PSE Drug Triaminic Allergy Anaphylactic reaction Drug Vital Signs: Vitals and Measurements this Visit (last charted value for your 06/04/2023 visit) Vital Signs This Visit Temperature Temporal: 36 (more content not included)... [facility] 05-05-2023 L ----- Specimen: [id number] Received: 05/05/23 Status: JOANNA Moraes Num: [id number] Spec Type: Surgical Subm Dr: AR GURROLA MD Tissues: A Fallopian Tube - Sterilization (BILATERAL FT) Procedures: Sue RIVERA/Tanisha L2 Age/ Patient Sex Location Account Attending Physician Barbra Claros/Whitney PAK [id number] AR GURROLA MD SPEC NUM: [id number] RECD: 05/05/23 STATUS: JOANNA MORAES NUM: [id number] ABRAHAN: 05/05/23 DR: AR GURROLA MD ENTERED: 05/05/[address] [facility] [address]: [facility] SPEC TYPE: Surgical DEPT: S ORDERED: HE/2, Gross/Micro L2 ORDERED: HE/2, Gross/Micro L2 Pathological Diagnosis Bilateral fallopian tubes, bilateral salpingectomy: - Bilateral intact segments of fimbriated fallopian tubes without any significant histomorphologic findings in both tubes Clinical Information Desires sterilization Gross Description The specimen is received in formalin labeled with the patient's name designated bilateral fallopian tubes and consists of two fimbriated fallopian tubes averaging 6.7 cm in length x 0.6 cm in diameter which are surfaced by a red-purple, smooth, glistening serosa. The fallopian tubes are step sectioned. The cut surfaces show stellate lumina with average wall thickness of 0.1 cm. Supervisor [employer] sections are submitted in two cassettes labeled as follows: A1 hobbies and crafts sales representative sections of fallopian tube X, to include entire fimbria, A2 hobbies and crafts sales representative sections of fallopian tube Y, to include entire fimbria. CPT Codes 79116 Specimen: [id number] Received: 05/05/23 Status: JOANNA Moraes Num: [id number] Spec Type: Surgical Subm Dr: AR GURROLA MD Tissues: A Fallopian Tube - Sterilization (BILATERAL FT) Procedures: HE/2, Gross/Micro L2 Patient: Barbra Claros [id number] (Continued) Signed (signature on file) Chin-Italo Aceves MD 05/08/23 1549 [facility] Coding Summaryon 04-20-2023 Coding Summary HTMLBase 64 CsaympkaEHu5vVu+PGhlYWQ+P J4TJCUxI50ltUIuyM5dY1ELXW lOSywgQVBQTElOSyIgbmFtZT1 kaXNjZXJu IC8+VR0dZOIxMjhxaWWjg6N4v ID9G20tnf3pQDotsBB4VZPaKr Foethkt9mjmKi5ODabOvjlUhV t VPVetB66MDO9pK82Av49qEIgu ZCva5uadMl4MoGpWWIfOOZ1mO obFFpwp2YeWEDtT12nsKXwn8K 6 QCKmpKcoaQUoWjAdvYJ0dW6uY Wpyfybvf2hfxffzGeb5st65kK Ule0W9nGD1A6KzqhA9ARDlnIR g BqxwbDRDmC0cdnvao6taolmeY aFkIURwZYe1UPo1TVGbzFtcLx DjOC05MYJ8AOFbmkFmU0VqCDJ s dIruSvI0c3X0Mz5DM8VKQomoE 1VNTUFSWTwvdGQ+WG45zq32W5 TmUmbsUkm1TUPcMGV9bVQ1rD2 n FJLvMOtgh2D2fHC4B8SoxeYzi s8ed2wfGGUfKDduJ88icQWqc4 L7AOWvgAC2LIGbzKoeCdZspI2 3 Oyc+DHOhvPrwn2FgKinku4jgs 7tqnCe5WlawGBZivmRefPotMY R7n7WvQv1iXDLfkUR6dVQ7yV0 i PbAaNsW3BJynY620WqFebBTgA dooW48jG7BtlHL+OVSiXhk6SD VtmGuxXF9fG6TfCNYvhkvduVJ m wCdaKO7bCRYstqlyITOwtW7bW ORkD3y3PuAbZdA7IObnA2JlKB KdibtzJt90cZ3pMsExBxU0OSo u J2RlicG2RPZwxJPqMJpoNTI5R 92re5O0QDWeODBjKMV3jOM1lX 1hbGlnbjogbGVmdDsgdmVydGl j OWswTVtbG922JXWsyHzkCdWuA GluZyBEYXRlOiAgMTEvMDIvMj AyMzwvdGQ+RLHqUCI1sJpcGVW n lGLfAZycCx1dnPfdcCelWL5wW DKqfhszFJLpjW4fJCCkyCEjwZ wdEI8vCQDxrhbne680LoWiBAF 0 FNJibDGjX2UldW1qEaBfSBVuF NRbO7FxzAVhSMynB354YDctZr A2PZHqvdMjR5ExDFYlcPvrNoL 0 o7N8Wx5Iq3EplfxsV5YzrBWcH wOgAemjBPe6L0UeVlabaQZ+PC 05ZAFxVR19WAj2RIA8iJhyMEn i LNLvX7WlpX7pHaGoLJUbWHXwC yc+PHRhYmxlIHdpZHRoPScxMD YoLlGkaFgbRX2yRq7bQLMmHLZ v qTiuxDZoIcZks6clDEUpZUrzY B1dzXykJ6QlaMG4SKPey6z0Ny 91R76eG7EfdJK+SBHmyFF1yCS 0 bT6dOtMtOzY0JQkiL426CjHqv RXvRszfz2myy0fmbLq0SbK6MV IdhyTttEkwRTL0p0CxEz81Z43 s IHdpZHRoPSIxNSUiIHZhbGlnb l5apI8pBd3+LZFncZS3bHB6iP 9sMpWyWvV9ULgxP258FvNbnRT v Jvhqq2emc0cxwTd9MtNhPRIdl nUybRvnPSM2l4QvOr77W3JwfD xov3TjKfc1pm39kSWme7D3rXL 9 U8TiGQXaaihxgAElzMfcLR0vA LMbgslnNKVtjW9iGLLwR2d9Gy VgSkO9SUgyH6HunzP9ZEYicTV g XDGvvGKEvZ6pydjaq9pwyyuiH sNoSQYmLLm2UOp3MNIurUsiZj MgGRS7KfU1TJW8gQUzwP8joAm n vlctcE9uHuv+CLQ9jDYcjMAIG E2dXlrlvNT+MRJpUNM6pDxuIC tdSNNybO7pRCStM4q0XdShZcL 1 TWvyM4FlfdE2LHVyvMIpJMBha IIWmR0ewhlrl6xdjvggNvEjMW KoNCk7LDd1NXIgzAmuDrYzPWX 0 PzQ5TPJ9hGTykU7glXaekduwy G9wOyc+RgjdoVybJAH7PJb8U1 KnNmx4EXPsiAhzIU5gxHLwPLt u Uh3csRbrdRjzVM0kJPJvqxvxh 470KkFxt4ztRAVqpAQuQEnpKG B9O40gg1N2CPXbCHRuOXM1pVQ 4 sC5erXraycspyKVzjBjaibYcw KukWLbxKXqcX818BAFjcUivZd ZvGTr7S6XmUjz7RRZcnVnaVU3 n nHUzXXwbVo1cdKobxNvxLW1fR OPrbvjtp181AnSlh4dxCNIpiF ClKGayWOO6K49ii7S3YGVkQZW w EPH0oLF5nX8xiOxtijjsyGBvc OvmwcBpvFnbYPkeHTtpY204AQ EfdFpmPnViiRk8C0KhGar2QZZ z nNzrPA4pyCArRDftQy0etRpwx WrbNI2kBVBintuhk227KmFiv2 ziVHAyvAFoJSvuLKN3N92tf9C 6 BTTmYUCoHDR2pOX7fV7sgLzcm jogbGVmdDsgdmVydGljYWwtYW rtK421RDWvgKozIrBddJxuieM g INdoMMj2B7KxLmaoqQB+PC90Y WEzET37eLTlxURqa4lznVl4Tw UbNGIwOHL4cMxzQLigj2NzKMD t Q54qoCQcn7F4TRIgeScqwDKaT hMwvMV5wU1cZUxssbmor8ikdh gdCywfi1oxqd51yO02P08mYVv p FMSpLRWoFJNvWMIbpEwqen4wu G9wIi8+ZUJogXA7hDR0qJ1cPG BsXrC6JYueU070GiDfpPLrLda j q6amv3inpBj5ZpT6NCQzprHgt YxoOKQ9m3HaHu78M67zATdfUJ SsTGKfBJGlLMUtbRicap5jpK6 w Ii8+DVUomJH9iWC8gK6yFdYxN hG2FPllQ447LsMgpYOmPytzI3 6yR9SsbBA+VTSfMhr9DMAbbAl s FV0rwLPnIWsgJk5mWWB3JyAqO kEoDYcnD8RhJYQbaswesatsyV L6SLWiHRKebH75Nm7zoDcjYYY w sPTZwO3jktzxs9qqnyobDyKyJ HLqPVs1ABj9RPCmaUkoKmTvIR G4ZrG4UIX4iHRyfV8kdXgjjqg g zH9dT5HoJKOrgmdbRt14nK6zD iPuKzH1YPfiYjb+X7vIU47DMP RBKERDNI7CSIXGPVkKTnqyxGJ + WKKpZZB5uOnxOUmkPSFdsH0pT SAtN3s6XtXkXwJ4DNhgO8CpVA CowojqAi62uR2vOaTzRtV5ZZc u B1CwkhJ0XQKooAUrMOjbRCV7K 85ck3J6PAXsIXCrKGS3sJS7gA 1hbGlnbjogbGVmdDsgdmVydGl j ZEsaUCjbJ195WLJlnEdiHvEcU tV4ZwQ0VKY3S0JwWcs8SSTxaC kzKX7cgZGkRGdxDr4dsHsulYp g EZ5fDUOgqbzqBKEfxB5sBTLyt ICekZzuIU6xVNXbmfchp493Hp KrZVR2BIWydHIzL1OikF1lMfQ j EYKwEYXfR0UvnEHqNNbzF494P QmdVyL8PQPkyaDwF8TiEVDpdE tuCsY4g8N1Qi8sEdKATZWplwn v dGQ+ZWVmOXP1qSrkSKydSEGdy P0xRLHlW8b0VmWrBcT5RWtkO1 HwTLQmchzaCv65yC6oByQjEtW 1 NRmjC2KfsrA7IBQoaQEcJLilA IL5B23yi2N2HGAlCHBaUHE3aX F8cV1ltXqkfechoEAidDijtfL y qUlgQAjwLLzbM703YGTstAjsE kZFTUFMRTwvdGQ+VBRwDRD6bA kvLCzaQSMckK0tWGJkX5h8LnZ w YmY3JGyeT0XxPEXdmwmfXe07c J8nEyUtMwV3JGfyA3MxneJ8BI KyjSEgFVhhZUA5Z97hj1E7QZW w ZPBrIZU7lQZ3lK5ixGcbhjnfm GVmdDsgdmVydGljYWwtYWxpZ2 23KLCrkFloVgHqBLPmDB2atWh v dGQ+GN69wm97Y5SyYcmmGid8K CShEAW6cYQ2aE4zUFXgFGwuk1 J5zOO6P6XqvtYzqt9gx8quJSQ z UMowM76qjTBxu8F1TAHcnXC6C RQiwKlgBrFeyY47Qov+PGNvbG uic4VmFxweg6jay6zgjWz5HtA w XFHhwrPznQboABS3f7AxJx74B 29sIHdpZHRoPSIzMCUiIHZhbG tino6tcU3qTs9+FGDrvNZ3nMG 0 uG3oJoNpBnY8ZPcyP990RrSbk ZHjJkvng6dfv6nvyQe1WoNuJT BdwdByaAjpYIU7h2PqYh30Z3F v aGezg5UwAkg3wi77yDQew7R3d DV1X4WyMXAfkoexxFHnlRyvKP 9wPEZhhodgFNGawO6mHIBtI7o 0 AuNhFjD1GXjiR2CxqnI0NBBlm WVdGSMxzOCLvR4tnpgee7cgbp sjAvLpCEWmTCs0UHm1YFGukIj u SxVqTOJ4YeO6FMY6dLFzlM3pe OadghdcpN8lRid+PDt3q6ljoK GnCB0hlXE0TZ77DS54tGErk0N 5 eXC0W2CjUPZvjvgtbkhouPJ4X VFzBWThsV69Kf3cjVhxMu5fKI XoFMQ8NHVxhMGeZ0YqwR7qReA j MIScUCIxW9UlmQWhKEbhK335Z SwsWoZ8YVRennTcL5NnORPcdS kvYpA0e5I9Dt8DRI08HP80VC0 8 eYVcl4P8aTC6U8YmFSSdfkunz txvmMI8PSCoGQNxmL29Yg6mrY bnFk9oGAFjFPW8AKVrrOPhD7M v pB0jEjIfLIMrMOVkA9UalYYzT UjuT523MUdpEiT6KWHahoUjA3 KoQJXfdAytXtA6m0B6Ft5KXr8 6 UB69FG23dGEyx4E6tLF7V7QmO YSmtcbhprvbtRR6ICIfFTAiyZ 28Nj8yyIuyMh7zIUWwIHC0TYH p oWCpK9WwlS2oPaUkSOOaLHQwA 8DfhZWmJVfnN833NGokQlX4CA ZvdwPfN1EqXRKrdFylZtY6u3Z 7 Ln2XJUqzztl0R2TgHdkmvUP+P V95NGVeKH46fJXoqSXss9fyfF g1CwHeCRYpVKM3cBqcCRkwt2P k ZXI (more content not included)... [facility] .Auto Diff 04-16-2023 Auto [place] % 8 % Normal 1-12 [facility] Comment on above: Performed By: #### 3 [id number], 3548314, 5576980, [id number], [id number] ####[facility] (DEFAULT)[address] [place] [address] Baso Abs# 0.0 x10 Normal 0.0-0.2 [facility] Comment on above: Performed By: #### 3 [id number], 1325012, 5661815, [id number], [id number] ####[facility] (DEFAULT)[address] [place] [address] Basophils/100 WBC (Bld) 0.4 % Normal 0.2-2.0 [facility] Comment on above: Performed By: #### 3 [id number], 3117899, 2533152, [id number], [id number] ####[facility] (DEFAULT)[address] [place] [address] Eos Abs# 0.4 x10 Normal 0.0-0.4 [facility] Comment on above: Performed By: #### 3 50177005, 0876175, 5408603, [id number], [id number] ####[facility] (DEFAULT)[address] [place] [address] Eosinophils/100 WBC (Bld) 4.9 % High 0.9-4.0 [facility] Comment on above: Performed By: #### 3 [id number], 7407049, 3145224, [id number], 11276206 ####[facility] (DEFAULT)[address] [place] [address] 85852 Lymph Abs# 3.3 x10 High 1.3-2.9 [facility] Comment on above: Performed By: #### 3 [id number], 1974122, 1891922, [id number], 35695126 ####[facility] (DEFAULT)[address] [place] [address] Lymphocytes/100 WBC (Bld) 43 % Normal 14-48 [facility] Comment on above: Performed By: #### 3 10452484, 6223231, 0314838, [id number], [id number] ####[facility] (DEFAULT)[address] [place] [address] [place] Abs# 0.6 x10 Normal 0.0-0.8 [facility] Comment on above: Performed By: #### 3 10777817, 1211034, 5676250, [id number], 06028540 ####[facility] (DEFAULT)[address] [place] [address] Neut Abs# 3.4 x10 Normal 1.5-9.2 [facility] Comment on above: Performed By: #### 3 81329372, 7795509, 2294158, 9182711346, 11966136 ####[facility] (DEFAULT)[address] [place] [address] Neutrophils/100 WBC (Bld) 44 % Normal 44-88 [facility] Comment on above: Performed By: #### 3 51759830, 7656790, 5219417, 1079463754, 37116829 ####[facility] (DEFAULT)[address] [place] [address] CBC w/ Auto Diffon Erythrocyte distribution width (RBC) [Ratio] 17.9 % High 11.5-15.0 [facility] Comment on above: Performed By: #### 3 51807282, 0977231, 0589319, 2852714212, 70940511 ####[facility] (DEFAULT)[address] [place] [address] Hematocrit (Bld) [Volume fraction] 32.9 % Low 33.7-40.4 [facility] Comment on above: Performed By: #### 3 88248584, 5630143, 2503477, 0198211048, [id number] ####[facility] (DEFAULT)[address] [place] [address] Hemoglobin (Bld) [Mass/Vol] 10.6 g/dL Low 11.3-15.9 [facility] Comment on above: Performed By: #### 3 37872180, 8529291, 5062318, 2591509396, 30120868 ####[facility] (DEFAULT)[address] [place] [address] Man Diff? Auto Invalid Interpretation Code [facility] Comment on above: Performed By: #### 3 [id number], 3025167, 2903123, [id number], 87475042 ####[facility] (DEFAULT)[address] [place] [address] MCH (RBC) [Entitic mass] 26 pg Normal 24-34 [facility] Comment on above: Performed By: #### 3 69538453, 1612067, 1134729, 0050112440, 54845124 ####[facility] (DEFAULT)[address] [place] [address] MCHC (RBC) [Mass/Vol] 32 g/dL Normal 26-37 [facility] Comment on above: Performed By: #### 3 28268093, 9046241, 0396624, [id number], 89966299 ####[facility] (DEFAULT)[address] [place] [address] MCV (RBC) [Entitic vol] 81 fL Normal 81-100 [facility] Comment on above: Performed By: #### 3 07981897, 4273855, 8069894, 2288468868, 83796171 ####[facility] (DEFAULT)[address] [place] [address] Platelet 275 x10 Normal 138-427 [facility] Comment on above: Performed By: #### 3 63649283, 1469979, 1427922, 8984702114, 91446538 ####[facility] (DEFAULT)[address] [place] [address] Platelet mean volume (Bld) [Entitic vol] 7.8 fL Normal 6.3-10.2 [facility] Comment on above: Performed By: #### 3 26012259, 8260020, 9953432, 9484650734, 24745388 ####[facility] (DEFAULT)[address] [place], [place] [address] RBC 4.05 x10 Normal 3.70-5.30 [facility] Comment on above: Performed By: #### 3 33424950, 6199780, 7269050, 5371218610, 24328446 ####[facility] (DEFAULT)[address] [place] [address] WBC 7.7 x10 Normal 3.5-10.5 [facility] Comment on above: Performed By: #### 3 54958373, 9087656, 0965562, 7407919939, 91671666 ####[facility] (DEFAULT)[address] [place] [address] CMP Standardon 04-16-2023 Breakpoint Chem Normal [facility] Comment on above: Performed By: #### 3 30090952, 6052174, 6380894, 5279279007, 24608484 ####[facility] (DEFAULT)[address] [place] [address] eGFR Non AA >60 Invalid Interpretation Code [facility] Comment on above: Performed By: #### 3 32822429, 8402504, 0294406, [id number], 51267137 ####[facility] (DEFAULT)[address] [place] [address] eGFR AA >60 Invalid Interpretation Code [facility] Comment on above: Performed By: #### 3 90259659, 9316184, 6083372, [id number], 28032398 ####[facility] (DEFAULT)[address] [place] [address] Albumin/Globulin [Mass ratio] 1.2 {ratio} Low 1.4-2.6 [facility] Comment on above: Performed By: #### 3 79997374, 7453073, 8085463, 9047319616, 27946359 ####[facility] (DEFAULT)[address] [place] [address] Anion gap [Moles/Vol] 7.6 mmol/L Normal 5.0-19.0 [facility] Comment on above: Performed By: #### 3 79928150, 8649671, 2525242, 4808632709, 52563916 ####[facility] (DEFAULT)[address] [place] [address] Globulin (S) [Mass/Vol] 3.2 g/dL Normal 1.5-4.3 [facility] Comment on above: Performed By: #### 3 92384934, 2053492, 6514173, 0606863780, 67868089 ####[facility] (DEFAULT)[address] [place] [address] Osmolality 275 mOsm/L Invalid Interpretation Code [facility] Comment on above: Performed By: #### 3 [id number], 3534084, 8797551, [id number], 26489588 ####[facility] (DEFAULT)[address] [place] [address] Urea nitrogen/Creatinine [Mass ratio] 20.3 mg/mg High 4.6-16.2 [facility] Comment on above: Performed By: #### 3 38805612, 6444139, 4634039, 5027703217, 25776999 ####[facility] (DEFAULT)[address] [place] [address] Albumin [Mass/Vol] 3.9 g/dL Normal 3.5-5.0 [facility] Comment on above: Performed By: #### 3 45940745, 1362488, 5775313, 6766822322, 76289631 ####[facility] (DEFAULT)[address] [place] [address] Alk Phos 44 IU/L Normal 32-91 [facility] Comment on above: Performed By: #### 3 33477537, 1140947, 2123359, 2128377306, 68786324 ####[facility] (DEFAULT)[address] [place] [address] ALT [Catalytic activity/Vol] 39.0 U/L Normal 14.0-54.0 [facility] Comment on above: Performed By: #### 3 51084946, 6188785, 0967789, 6872972848, 68647380 ####[facility] (DEFAULT)[address] [place] [address] 36170 AST [Catalytic activity/Vol] 28 U/L Normal 15-41 [facility] Comment on above: Performed By: #### 3 53437533, 5584618, 7270550, 8767496616, 26762942 ####[facility] (DEFAULT)[address] [place] [address]461 Bili Total 0.4 mg/dL Normal 0.3-1.2 [facility] Comment on above: Performed By: #### 3 07276178, 9674277, 5618801, [id number], 78782491 ####[facility] (DEFAULT)[address] [place] [address]58 Calcium [Mass/Vol] 8.6 mg/dL Low 8.9-10.3 [facility] Comment on above: Performed By: #### 3 [id number], [id number], [id number], [id number], [id number] ####[facility] (DEFAULT)[address] [place] [address] 25360 Chloride [Moles/Vol] 107 mmol/L Normal 101-111 [facility] Comment on above: Performed By: #### 3 [id number], [id number], [id number], [id number], [id number] ####[facility] (DEFAULT)[address] [place] [address] 43960 CO2 [Moles/Vol] 27 mmol/L Normal 21-32 [facility] Comment on above: Performed By: #### 3 [id number], [id number], [id number], [id number], [id number] ####[facility] (DEFAULT)[address] [place] [address] 64768 Creatinine [Mass/Vol] 0.64 mg/dL Normal 0.60-1.30 [facility] Comment on above: Performed By: #### 3 [id number], [id number], [id number], [id number], [id number] ####[facility] (DEFAULT)[address] [place] [address] 24639 Glucose [Mass/Vol] 93.0 mg/dL Normal 74.0-118.0 [facility] Comment on above: Performed By: #### 3 [id number], [id number], 8020310, [id number], [id number] ####[facility] (DEFAULT)[address] [place] [address] 19398 Potassium [Moles/Vol] 3.6 mmol/L Normal 3.6-5.1 [facility] Comment on above: Performed By: #### 3 [id number], 1725103, [id number], [id number], [id number] ####[facility] (DEFAULT)[address] [place] [address] 38219 Protein [Mass/Vol] 7.1 g/dL Normal 6.5-8.1 [facility] Comment on above: Performed By: #### 3 [id number], 6986735, 0595805, [id number], [id number] ####[facility] (DEFAULT)[address] [place] [address] 82423 Sodium [Moles/Vol] 138.0 mmol/L Normal 136.0-144.0 [facility] Comment on above: Performed By: #### 3 [id number], 3826851, 8491615, [id number], [id number] ####[facility] (DEFAULT)[address] [place] [address] 29206 Urea nitrogen [Mass/Vol] 13 mg/dL Normal 8-26 [facility] Comment on above: Performed By: #### 3 [id number], [id number], [id number], [id number], [id number] ####[facility] (DEFAULT)[address] [place] [address] 22955 ED Clinical Summaryon 2022 ED Clinical Summary [facility] - Emergency Department [address] [place] [address] ED Clinical Summary PERSON INFORMATION Name: BARBRA CLAROS Age: 27 Years Sex: FEMALE : 1995 MRN: Acct#: Visit Reason: Vaginal bleeding; Vaginal bleeding; VAGINAL BLEEDING Arrival: 04/15/2023 23:05:13 Discharge: 04/16/2023 03:19:00 LOS: 000 04:14 Check In: 04/15/2023 23:05:13 Checkout:04/16/2023 03:19:00 Address: [address] [facility] [address] PCP: Provider, None PROVIDER INFORMATION Provider Role Assigned Unassigned Doreen Lowe FRONT END SOFTWARE DEVELOPER Nurse 04/15/2023 23:48:50 Luis Alfredo Shepherd DO ED Provider 04/16/2023 00:19:42 VITALS INFORMATION Vital Sign Triage Latest Temperature Tympanic Temperature Temporal Artery 37 DegC Pulse Rate 81 bpm 68 bpm O2 Sat 100 % 97 % Respiratory Rate 18 br/min 16 br/min Blood Pressure /77 mmHg /77 mmHg MEDICAL INFORMATION Medications Given: Medication Dose Route ketorolac 30 mg IV Push Sodium Chloride 0.9% intravenous solution 1,000 mL 1000 mL Initial Volume 1000 mL/hr IV Left Wrist medroxyPROGESTERone (Provera) 5 mg PO medroxyPROGESTERone (medroxyPROGESTERone 2.5 mg oral tablet) 2.5 mg PO Allergy Information: Triaminic Allergy; chlorpheniramine/dextrome thorphan/PSE PHYSICIAN DOCUMENTATION Patient: BARBRA CLAROS Age: 27 years Sex: FEMALE : 1995 Associated Diagnoses: Dysfunctional uterine bleeding Author: Luis Alfredo Shepherd DO Basic Information Time seen: Date & time 04/16/2023 00:21:00. History source: Patient. Arrival mode: Private vehicle, walking. History limitation: None. Additional information: Patient's physician(s): Smoker, drove herself to the ER, first period since delivery, child doing well, . History of Present Illness The patient presents with vaginal bleeding. Review of Systems Constitutional symptoms: This patient presents to the emergency room with vaginal bleeding, which started 3 days ago, but started as dark brown, first vaginal bleeding since her delivery about a month ago, no history of bleeding disorders, states initially it was brown, but then it increased over the past day or so to a maroon, and experienced some clots, which cause concern, she is on iron, she states that her general health otherwise is good, she is not a diabetic, she states she has some lower abdominal pelvic cramping. She was at work today, and she states the bleeding was a little increased, she does not have a family doctor, she thought that she would call Dr. Gurrola, her BEHAVIORAL SCIENCES INSTRUCTOR doctor on Monday for an assistance. She has 3 children, the last was successful, she has intends to have a tubal ligation. She does not have a history of bleeding issues,, no vaginal bleeding normally, no rectal bleeding, no urinary blood, no history of leukemia, and no fever or chills or upper respiratory illnesses. She states she has had no chest pain, she has had no syncope, she states she has a little bit of lightheadedness from time to time. So on exam, she is pleasant alert,, concerned, but once she was informed her lab tests are satisfactory, she then was comfortable. Her HEENT exam was normal, neck was easily supple, there is no anterior posterior supraclavicular nodes, her lungs are clear, there is no expiratory wheeze or rales or paradoxical chest motion, heart rate rhythm is regular no murmur, PMI left chest, abdomen is soft, with very vague discomfort in the suprapubic area, skin is warm and dry, she has no rashes, she has good skin turgor. In general she appears concerned, but nontoxic. She will be hydrated, and she should be able to go home, we will put her on Provera.. Medical Decision Making Orders Launch Orders Laboratory: PT/PTT (Order): Blood, Stat collect, 04/16/2023 0:23 EDT, Lab Collect CMP Standard (Order): Blood, Stat collect, 04/16/2023 0:23 EDT, Lab Collect CBC w/ Auto Diff (Order): Blood, Stat collect, 04/16/2023 0:22 EDT, Lab Collect HcG Qual 1 (Serum) (Order): Blood, Stat collect, 04/16/2023 0:22 EDT, Lab Collect, Launch Orders Pharmacy: Provera (Order): 5 mg, PO, Once ketorolac (Order): 30 mg, IV Push, Once Sodium Chloride 0.9% intravenous solution 1000 mL (Order): 1,000 mL/hr, IV. Results review: Interpretation Abnormal results Slightly low hemoglobin, negative . Platelets okay. PT okay.. Reexamination/ Reevaluation Time: 04/16/2023 03:19:00 . Vital signs Patient is feeling better, instructed on home treatment. Impression and Plan Diagnosis Dysfunctional uterine bleeding ([id number] N93.8, Discharge, Medical) Plan Condition: Improved. Disposition: Discharged. Prescriptions Patient was given the following educational materials: Menorrhagia, [id number]. Follow up with: ; Ar Gurrola In 2 days 04/18/2023 home ibuprofen for cramps Provera: one tab daily to reduce the bleeding continue your iron pills Call Dr Gurrola on Monday, for a recheck apt w (more content not included)... Normal [facility] ED Note - Physicianon 2022 ED Note - Physician Patient: NELDA CLAROS MRN: [id number] Age: 27 years Sex: FEMALE : 1995 Associated Diagnoses: Dysfunctional uterine bleeding Author: Luis Alfredo Shepherd DO Basic Information Time seen: Date & time 04/16/2023 00:21:00. History source: Patient. Arrival mode: Private vehicle, walking. History limitation: None. Additional information: Patient's physician(s): Smoker, drove herself to the ER, first period since delivery, child doing well, . History of Present Illness The patient presents with vaginal bleeding. Review of Systems Constitutional symptoms: This patient presents to the emergency room with vaginal bleeding, which started 3 days ago, but started as dark brown, first vaginal bleeding since her delivery about a month ago, no history of bleeding disorders, states initially it was brown, but then it increased over the past day or so to a maroon, and experienced some clots, which cause concern, she is on iron, she states that her general health otherwise is good, she is not a diabetic, she states she has some lower abdominal pelvic cramping. She was at work today, and she states the bleeding was a little increased, she does not have a family doctor, she thought that she would call Dr. Gurrola, her BEHAVIORAL SCIENCES INSTRUCTOR doctor on Monday for an assistance. She has 3 children, the last was successful, she has intends to have a tubal ligation. She does not have a history of bleeding issues,, no vaginal bleeding normally, no rectal bleeding, no urinary blood, no history of leukemia, and no fever or chills or upper respiratory illnesses. She states she has had no chest pain, she has had no syncope, she states she has a little bit of lightheadedness from time to time. So on exam, she is pleasant alert,, concerned, but once she was informed her lab tests are satisfactory, she then was comfortable. Her HEENT exam was normal, neck was easily supple, there is no anterior posterior supraclavicular nodes, her lungs are clear, there is no expiratory wheeze or rales or paradoxical chest motion, heart rate rhythm is regular no murmur, PMI left chest, abdomen is soft, with very vague discomfort in the suprapubic area, skin is warm and dry, she has no rashes, she has good skin turgor. In general she appears concerned, but nontoxic. She will be hydrated, and she should be able to go home, we will put her on Provera.. Medical Decision Making Orders Launch Orders Laboratory: PT/PTT (Order): Blood, Stat collect, 04/16/2023 0:23 EDT, Lab Collect CMP Standard (Order): Blood, Stat collect, 04/16/2023 0:23 EDT, Lab Collect CBC w/ Auto Diff (Order): Blood, Stat collect, 04/16/2023 0:22 EDT, Lab Collect HcG Qual 1 (Serum) (Order): Blood, Stat collect, 04/16/2023 0:22 EDT, Lab Collect, Launch Orders Pharmacy: Provera (Order): 5 mg, PO, Once ketorolac (Order): 30 mg, IV Push, Once Sodium Chloride 0.9% intravenous solution 1000 mL (Order): 1,000 mL/hr, IV. Results review: Interpretation Abnormal results Slightly low hemoglobin, negative . Platelets okay. PT okay.. Reexamination/ Reevaluation Time: 04/16/2023 03:19:00 . Vital signs Patient is feeling better, instructed on home treatment. Impression and Plan Diagnosis Dysfunctional uterine bleeding ([id number] N93.8, Discharge, Medical) Plan Condition: Improved. Disposition: Discharged. Prescriptions Patient was given the following educational materials: Menorrhagia, [id number]. Follow up with: ; Ar Gurrola In 2 days 04/18/2023 home ibuprofen for cramps Provera: one tab daily to reduce the bleeding continue your iron pills Call Dr Gurrola on Monday, for a recheck apt we have provided a copy of your recent labs to take to the doctor you are welcomed to return, especially if fever, or the bleeding increases. Alesia SHEPHERD< ER PHYSICIAN< Chucky Hoang.. Counseled: Patient, Regarding diagnosis, Regarding diagnostic results, Regarding treatment plan, Regarding prescription, Patient indicated understanding of instructions. [Electronically Signed on: 04/16/2023 03:19 EDT] Luis Alfredo Shepherd DO [Verified on: 04/16/2023 03:19 EDT] Luis Alfredo Shepherd DO Normal [facility] ED Patient Summaryon 023 ED Patient Summary [facility] - Emergency Department [address] [place] [id number] PATIENT DISCHARGE INSTRUCTIONS Patient Information Name: BARBRA CLAROS Age: 27 Years Date of : 1995 Reason For Visit: Vaginal bleeding; Vaginal bleeding; VAGINAL BLEEDING Arrival Time: 04/15/2023 23:05:13 Primary Care Physician: Provider, None Attending Physician: Luis Alfredo Shepherd DO Comment: Visit Diagnosis: Diagnoses This Visit Dysfunctional uterine bleeding (N93.8) Vaginal bleeding ([id number]) Vaginal bleeding ([id number]) The Pharmacy at [facility] is open Monday through Monday from 9A to 6P and Monday and Monday from 9A to 5P Prescription Information: If you have been given a prescription for narcotics, seek immediate medical attention if you have any difficulty breathing or any sudden status changes such as confusion and sleepiness. If you or anyone you know is experiencing suicidal thoughts, mental health, alcohol and/or drug addiction problems; contact the [facility] 09/01 Crisis Hotline -Text 4HOPE to 129946. If you received any narcotics, sedation, or any other medication that causes drowsiness for the next 24 hours, unless otherwise directed: ? Do not drive a car. ? Do not operate machinery such as power tools, lawn mowers, drills, sewing machines, or stoves ? Avoid alcoholic beverages and drugs for allergies, nerves, or sleep ? Do not make important personal or business decisions or sign any legal documents With: Address: When: Ar Gurrola [address] , [address] [place] [address] Business (1) In 2 days 04/18/2023 Comments: home ibuprofen for cramps Provera: one tab daily to reduce the bleeding continue your iron pills Call Dr Gurrola on Monday, for a recheck apt we have provided a copy of your recent labs to take to the doctor you are welcomed to return, especially if fever, or the bleeding increases. Alesia SHEPHERD< ER PHYSICIAN< Chucky Hoang. Medication Information: The exam and treatment you received today in the [facility] Emergency Department were for an urgent problem and are not intended as complete care. It is important for you to follow up with a doctor, nurse practitioner, or physician?s employee relations assistant for ongoing care. If your symptoms become worse or you do not improve as expected and you are unable to reach your usual health care provider, you should return to the Emergency Department, we are available 24 hours a day. For those patients who have received Radiology results, the interpretation of your X-ray as given to you by our Emergency Department physician is only a preliminary report. The Radiologist will review your films and if there is a change in the diagnosis you will be notified by phone. Please make sure you have provided a working phone number so we can reach you if necessary. In the event that you had a lab culture while you were a patient in the Emergency Department, you will be notified by phone if there is a need to change your antibiotic. Please make sure you have provided a working phone number so we can reach you if necessary. [facility] Emergency Department has provided you with a complete list of medications post discharge. Please inform your lens mold setter/provider of your visit and for further instruction on these medications. Any specific questions regarding your chronic medications and dosages should be discussed with your primary care physician(s) and/or pharmacist. New Medications The [facility], [address] [place] [phone], [phone] medroxyPROGESTERone (medroxyPROGESTERone 5 mg oral tablet) 1 tab(s) Oral every day for 7 Days. Refills: 0. Medications to Continue That Have Not Changed Other Medications ethinyl estradiol-norgestimate (Sprintec 0.25 mg-35 mcg oral tablet) 1 tab(s) Oral every day. ferrous sulfate (FeroSul 325 mg (65 mg elemental iron) oral tablet) 1 tab(s) Oral 3 times a day. multivitamin, ( 19 ([employer]) oral tablet) 1 tab(s) Oral every day. Refills: 0. SUMAtriptan (SUMAtriptan 25 mg oral tablet) 1 tab(s) Oral every day as needed for migraine headache. may repeat dose after 2 hours up to a maximum of 200 mg in 24 hours. Visit Information Allergies: Substance Reaction Symptoms Type Comments chlorpheniramine/dextrome thorphan/PSE Drug Triaminic Allergy Anaphylactic reaction Drug Vital Signs: Vitals and Measurements this Visit (last charted value for your 04/15/2023 visit) Vital Signs This Visit Temperature Temporal Artery: 37 DegC Peripheral Pulse Rate: 68 bpm Respiratory Rate: 16 br/min Systolic Blood Pressure: 118 mmHg Diastolic Blood Pressure: 79 mmHg Mean Arterial Pressure, Cuff-Calculation: 92 mmHg SpO2: 97 % Oxygen Therapy: Room air Measurements This Visit (more content not included)... Normal [facility] PT/PTTon 04-16-2023 INR Coag (PPP) [Relative time] 0.99 {INR} Normal 0.91-1.11 [facility] Comment on above: Performed By: #### 3 [id number], [id number], [id number], [id number] ####[facility] (DEFAULT)[address] [place] [address] PT 10.3 second(s) Normal 9.7-11.8 [facility] Comment on above: Performed By: #### 3 [id number], [id number], [id number], [id number] ####[facility] (DEFAULT)[address] [place] [address] PTT 33 second(s) Normal 25-35 [facility] Comment on above: Performed By: #### 3 [id number], [id number], [id number], [id number], [id number] ####[facility] (DEFAULT)[address] [place] [address] Test Serum 1on Preg Serum Internal Control OK Normal [facility] Comment on above: Performed By: #### 3 [id number], [id number], [id number], [id number], [id number] ####[facility] (DEFAULT)[address] [place] [address] Test Serum Qual Negative [facility] Comment on above: Performed By: #### 3 [id number], [id number], [id number], [id number], [id number] ####[facility] (DEFAULT)[address] [place] [address] Automated basophil %Ordered By: Jonathan Monahan on 02-27-2023 Basophils/100 WBC (Bld) 0.4 % Normal . [facility] Comment on above: Order Comment: Comme nt Draw at 630 am Performed By: #### C BC #### [address] Automated basophil countOrde red By: Jonathan Monahan on 02-27-2023 Basophils (Bld) [#/Vol] 0.0 10*3/uL Normal 0.0-0.2 [facility] Comment on above: Order Comment: Comme nt Draw at 630 am Result Comment: PERF ORMED BY: [place] [address] PATHOLOGIST 21 DEAL[address] LARISSA GUERRA M.D. Performed By: #### C BC #### [address] Automated blood monocyte cou ntOrdered By: Jonathan Monahan on 02-27-2023 Monocytes (Bld) [#/Vol] 0.7 10*3/uL Normal 0.0-0.8 [facility] Comment on above: Order Comment: Comme nt Draw at 630 am Performed By: #### C BC #### [address] Automated eosinophil %Ordere d By: Jonathan Monahan on 02-27-2023 Eosinophils/100 WBC (Bld) 0.7 % Normal . [facility] Comment on above: Order Comment: Comme nt Draw at 630 am Performed By: #### C BC #### [address] Automated eosinophil countOr dered By: Jonathan Monahan on 02-27-2023 Eosinophils (Bld) [#/Vol] 0.1 10*3/uL Normal 0.0-0.45 [facility] Comment on above: Order Comment: Comme nt Draw at 630 am Performed By: #### C BC #### [address] Automated monocyte %Ordered By: Jonathan Monahan on 02-27-2023 Monocytes/100 WBC (Bld) 7.1 % Normal . [facility] Comment on above: Order Comment: Comme nt Draw at 630 am Performed By: #### C BC #### [address] Automated neutrophil %Ordere d By: Jonathan Monahan on 02-27-2023 Neutrophils/100 WBC (Bld) 64.9 % Normal . [facility] Comment on above: Order Comment: Comme nt Draw at 630 am Performed By: #### C BC #### [address] Complete Blood Count Auto Di ffon 02-27-2023 Mean Corpuscular HGB Conc 32.4 g/dL Normal 32.0-35.0 [facility] Comment on above: Order Comment: Comme nt Draw at 630 am Performed By: #### C BC #### [address] NRBC% 0.2 /100{WBC} Normal 0-0.5 [facility] Comment on above: Order Comment: Comme nt Draw at 630 am Performed By: #### C BC #### [address] Erythrocyte distribution wid th [Ratio] by Automated countOrdered By: Jonathan Monahan on 02-27-2023 Erythrocyte distribution width (RBC) [Ratio] 14.8 % Normal 11.9-15.3 [facility] Comment on above: Order Comment: Comme nt Draw at 630 am Performed By: #### C BC #### [address] Erythrocytes [#/volume] in B lood by Automated countOrdered By: Jonathan Monahan on 02-27-2023 RBC (Bld) [#/Vol] 3.48 10*6/uL Low 3.60-5.00 [facility] Comment on above: Order Comment: Comme nt Draw at 630 am Performed By: #### C BC #### [address] Hematocrit [Volume Fraction] of Blood by Automated countOrdered By: Jonathan Monahan on 02-27-2023 Hematocrit (Bld) [Volume fraction] 27.5 % Low 34.0-46.4 [facility] Comment on above: Order Comment: Comme nt Draw at 630 am Performed By: #### C BC #### [address] Hemoglobin [Mass/volume] in BloodOrdered By: Jonathan Monahan on 02-27-2023 Hemoglobin (Bld) [Mass/Vol] 8.9 g/dL Low 11.8-15.4 [facility] Comment on above: Order Comment: Comme nt Draw at 630 am Performed By: #### C BC #### [address] Hepatitis B Surface Antigeno n 02-27-2023 HBsAg Screen Negative Normal Negative [facility] Comment on above: Result Comment: Perf ormed at: CB - [facility] [address] [id number] Pattern Checker: Alexander Jean Baptiste PhD, Phone: [phone] PERFORMED BY: [place] [address] PATHOLOGIST [address] [employer] LARISSA GUERRA M.D. Performed By: #### R UBELLA IGG, HBSAG #### [facility] , Hepatitis B virus surface Ag [Presence] in Serum or Plasma by ImmunoassayOrdered By: Jonathan Monahan on 02-27-2023 HBV surface Ag IA Ql Negative Negative [facility] Comment on above: Performed at: - [facility] [address] [id number] Director: Alexander Jean Baptiste PhD, Phone: [phone] Leukocytes [#/volume] correc arminda for nucleated erythrocytes in Blood by Automated counOrdered By: Jonathan Monahan on 02-27-2023 WBC corrected for nucl RBC Auto (Bld) [#/Vol] 9.6 10*3/uL 3.8-11.6 [facility] Leukocytes [#/volume] in Blo od by Automated countOrdered By: Jonathan Monahan on 02-27-2023 WBC (Bld) [#/Vol] 9.6 10*3/uL Normal 3.8-11.6 [facility] Comment on above: Order Comment: Comme nt Draw at 630 am Performed By: #### C BC #### [facility] [address] [place] [address] [place] Lymphocytes [#/volume] in Bl ood by Automated countOrdered By: Jonathan Monahan on 02-27-2023 Lymphocytes (Bld) [#/Vol] 2.6 10*3/uL Normal 1.00-4.8 [facility] Comment on above: Order Comment: Comme nt Draw at 630 am Performed By: #### C BC #### [facility] [address] [place] [address] [place] Lymphocytes/100 leukocytes i n Blood by Automated countOrdered By: Jonathan Monahan on 02-27-2023 Lymphocytes/100 WBC (Bld) 26.9 % Normal . [facility] Comment on above: Order Comment: Comme nt Draw at 630 am Performed By: #### C BC #### [address] MCH [Entitic mass] by Automa arminda countOrdered By: Jonathan Monahan on 02-27-2023 MCH (RBC) [Entitic mass] 25.6 pg Normal 24.7-34.3 [facility] Comment on above: Order Comment: Comme nt Draw at 630 am Performed By: #### C BC #### [address] MCHC Auto (RBC) [Mass/Vol]Or dered By: Jonathan Monahan on 02-27-2023 MCHC (RBC) [Mass/Vol] 32.4 g/dL 32.0-35.0 [facility] MCV [Entitic volume] by Auto mated countOrdered By: Jonathan Monahan on 02-27-2023 MCV (RBC) [Entitic vol] 79.0 fL Low 80-100 [facility] Comment on above: Order Comment: Comme nt Draw at 630 am Performed By: #### C BC #### [address] Neutrophils [#/volume] in Bl ood by Automated countOrdered By: Jonathan Monahan on 02-27-2023 Neutrophils (Bld) [#/Vol] 6.2 10*3/uL Normal 1.8-7.7 [facility] Comment on above: Order Comment: Comme nt Draw at 630 am Performed By: #### C BC #### [address] No Panel InformationOrdered By: Jonathan Monahan on 02-27-2023 Rubella IgG Antibody 2.22 index Immune >0.99 [facility] Comment on above: Non-immune <0.90 Equ ivocal 0.90 - 0.99 Immune >0.99Performed at: - [facility] [address] [id number] Director: Alexander Jean Baptiste PhD, Phone: [phone] Nucleated erythrocytes [Pres ence] in Blood by Automated countOrdered By: Jonathan Monahan on 02-27-2023 Nucleated RBC Auto Ql (Bld) 0.2 /100{WBC} 0-0.5 [facility] Platelet mean volume [Entiti c volume] in Blood by Automated countOrdered By: Jonathan Monahan on 02-27-2023 Platelet mean volume (Bld) [Entitic vol] 7.5 fL Normal 6.3-10.7 [facility] Comment on above: Order Comment: Comme nt Draw at 630 am Performed By: #### C BC #### [facility] [address] [place] [address] Platelets [#/volume] in Bloo d by Automated countOrdered By: Jonathan Monahan on 02-27-2023 Platelets (Bld) [#/Vol] 266 10*3/uL Normal 150-450 [facility] Comment on above: Order Comment: Comme nt Draw at 630 am Performed By: #### C BC #### [facility] [address] [place] [address] Rubella IgG Antibodyon 02-27 Rubella IgG Antibody 2.22 Normal Immune >0.99 [facility] Comment on above: Result Comment: Non- immune <0.90 Equivocal 0.90 - 0.99 Immune >0.99 Performed at: - [facility] [id number] Pattern Checker: Alexander Jean Baptiste PhD, Phone: [phone] PERFORMED BY: [place] [address] PATHOLOGIST 21 DEAL[address] LARISSA GUERRA M.D. Performed By: #### R UBELLA IGG, HBSAG #### [facility] , Amphetamine Screen Ql (U)Ord ered By: Jonathan Monahan on 02-26-2023 Amphetamines Ql (U) Negative Negative [facility] Automated erythrocytes count in urine sediment (number/area)Ordered By: Jonathan Monahan on 02-26-2023 RBC Auto (Urine sed) [#/Area] 0-1 [HPF] 0-4 [facility] Automated leukocytes count i n urine sediment (number/area)Ordered By: Jonathan Hero on 02-26-2023 WBC Auto (Urine sed) [#/Area] 20-49 [HPF] 0-4 [facility] Automated urine color determ inationOrdered By: Jonathan Hero on 02-26-2023 Color (U) Yellow Normal Yellow [facility] Comment on above: Order Comment: Comme nt For suspected repture of membranes Performed By: #### A MNISURE- #### [facility] [address] [place] [address] [place] Barbiturates [Presence] in U rine by Screen methodOrdered By: Jonathan Monahan on 02-26-2023 Barbiturates Screen Ql (U) Negative Negative [facility] Benzodiazepines Screen Ql (U )Ordered By: Jonathan Monahan on 02-26-2023 Benzodiazepines Ql (U) Negative Negative [facility] Benzoylecgonine [Presence] i n Urine by Screen methodOrdered By: Jonathan Monahan on 02-26-2023 Benzoylecgonine Screen Ql (U) Negative Negative [facility] Bilirubin Test strip Ql (U)O rdered By: Jonathan Monahan on 02-26-2023 Bilirubin Ql (U) Negative Negative [facility] Complete Blood Count Auto Di ffon 02-26-2023 Basophils (Bld) [#/Vol] 0.0 10*3/uL Normal 0.0-0.2 [facility] Comment on above: Result Comment: PERF ORMED BY: [facility] [address] [place] [address] PATHOLOGIST 21 DEALER LARISSA GUERRA M.D. Performed By: #### A DDONUAPLUS, AMNISURE-, OBUDS #### [facility] [address] [place] [address] [place] Basophils/100 WBC (Bld) 0.4 % Normal . [facility] Comment on above: Performed By: #### A DDONUAPLUS, AMNISURE-, OBUDS #### [facility] [address] [place] [address] [place] Eosinophils (Bld) [#/Vol] 0.0 10*3/uL Normal 0.0-0.45 [facility] Comment on above: Performed By: #### A DDONUAPLUS, AMNISURE-, OBUDS #### [address] Eosinophils/100 WBC (Bld) 0.4 % Normal . [facility] Comment on above: Performed By: #### A DDONUAPLUS, AMNISURE-, OBUDS #### [address] Erythrocyte distribution width (RBC) [Ratio] 15.1 % Normal 11.9-15.3 [facility] Comment on above: Performed By: #### A DDONUAPLUS, AMNISURE-, OBUDS #### [address] Hematocrit (Bld) [Volume fraction] 30.4 % Low 34.0-46.4 [facility] Comment on above: Performed By: #### A DDONUAPLUS, AMNISURE-, OBUDS #### [address] Hemoglobin (Bld) [Mass/Vol] 9.7 g/dL Low 11.8-15.4 [facility] Comment on above: Performed By: #### A DDONUAPLUS, AMNISURE-, OBUDS #### [address] Lymphocytes (Bld) [#/Vol] 2.5 10*3/uL Normal 1.00-4.8 [facility] Comment on above: Performed By: #### A DDONUAPLUS, AMNISURE-, OBUDS #### [address] Lymphocytes/100 WBC (Bld) 21.4 % Normal . [facility] Comment on above: Performed By: #### A DDONUAPLUS, AMNISURE-, OBUDS #### [address] MCH (RBC) [Entitic mass] 25.4 pg Normal 24.7-34.3 [facility] Comment on above: Performed By: #### A DDONUAPLUS, AMNISURE-, OBUDS #### [address] MCV (RBC) [Entitic vol] 79.4 fL Low 80-100 [facility] Comment on above: Performed By: #### A DDONUAPLUS, AMNISURE-, OBUDS #### [address] Mean Corpuscular HGB Conc 32.0 g/dL Normal 32.0-35.0 [facility] Comment on above: Performed By: #### A DDONUAPLUS, AMNISURE-, OBUDS #### [address] Monocytes (Bld) [#/Vol] 0.5 10*3/uL Normal 0.0-0.8 [facility] Comment on above: Performed By: #### A DDONUAPLUS, AMNISURE-, OBUDS #### [address] Monocytes/100 WBC (Bld) 4.7 % Normal . [facility] Comment on above: Performed By: #### A DDONUAPLUS, AMNISURE-, OBUDS #### [address] Neutrophils (Bld) [#/Vol] 8.4 10*3/uL High 1.8-7.7 [facility] Comment on above: Performed By: #### A DDONUAPLUS, AMNISURE-, OBUDS #### [address] Neutrophils/100 WBC (Bld) 73.1 % Normal . [facility] Comment on above: Performed By: #### A DDONUAPLUS, AMNISURE-, OBUDS #### [address] NRBC% 0.1 /100{WBC} Normal 0-0.5 [facility] Comment on above: Performed By: #### A DDONUAPLUS, AMNISURE-, OBUDS #### [facility] [address] Platelet mean volume (Bld) [Entitic vol] 7.8 fL Normal 6.3-10.7 [facility] Comment on above: Performed By: #### A DDONUAPLUS, AMNISURE-, OBUDS #### [facility] [address] [place] [address] [place] Platelets (Bld) [#/Vol] 291 10*3/uL Normal 150-450 [facility] Comment on above: Performed By: #### A DDONUAPLUS, AMNISURE-, OBUDS #### [facility] [address] RBC (Bld) [#/Vol] 3.83 10*6/uL Normal 3.60-5.00 [facility] Comment on above: Performed By: #### A DDONUAPLUS, AMNISURE-, OBUDS #### [facility] [address] WBC (Bld) [#/Vol] 11.5 10*3/uL Normal 3.8-11.6 [facility] Comment on above: Performed By: #### A DDONUAPLUS, AMNISURE-, OBUDS #### [facility] [address] [place] [address] [place] Dipstick and Microscopicon 0 02-26-2023 Appearance (U) Cloudy Critically abnormal Clear [facility] Comment on above: Order Comment: Comme nt For suspected repture of membranes Performed By: #### A MNISURE- #### [facility] [address] [place] [address] [place] Bacteria,Urine 1+ High None Seen [facility] Comment on above: Order Comment: Comme nt For suspected repture of membranes Performed By: #### A MNISURE- #### [address] Bilirubin,Urine Negative Normal Negative [facility] Comment on above: Order Comment: Comme nt For suspected repture of membranes Performed By: #### A MNISURE- #### [address] Glucose Ql (U) Normal Normal Normal [facility] Comment on above: Order Comment: Comme nt For suspected repture of membranes Performed By: #### A MNISURE- #### [place] [address] [place] Hyaline Casts,Urine 0-8 Normal 0-8 [facility] Comment on above: Order Comment: Comme nt For suspected repture of membranes Result Comment: PERF ORMED BY: [place] [address] PATHOLOGIST [employer] LARISSA GUERRA M.D. Performed By: #### A MNISURE- #### [address] Ketones Ql (U) Trace High Negative [facility] Comment on above: Order Comment: Comme nt For suspected repture of membranes Performed By: #### A MNISURE- #### [address] Leukocyte esterase Test strip Ql (U) 3+ High Negative [facility] Comment on above: Order Comment: Comme nt For suspected repture of membranes Performed By: #### A MNISURE- #### [place] [address] [place] Nitrite,Urine Negative Normal Negative [facility] Comment on above: Order Comment: Comme nt For suspected repture of membranes Performed By: #### A MNISURE- #### [place] [address] [place] Occult Blood,Urine Negative Normal Negative [facility] Comment on above: Order Comment: Comme nt For suspected repture of membranes Result Comment: PERF ORMED BY: [place] [address] PATHOLOGIST [employer] LARISSA GUERRA M.D. Performed By: #### A MNISURE- #### [address] Protein,Urine Negative Normal Negative [facility] Comment on above: Order Comment: Comme nt For suspected repture of membranes Performed By: #### A MNISURE- #### [address] RBC LM.HPF (Urine sed) [#/Area] 0 /[HPF] Normal 0-4 [facility] Comment on above: Order Comment: Comme nt For suspected repture of membranes Performed By: #### A MNISURE- #### [address] Specificy Fackler,Urine 1.016 Normal 1.001-1.030 [facility] Comment on above: Order Comment: Comme nt For suspected repture of membranes Performed By: #### A MNISURE- #### [address] Squamous Epithelial Cell,Urine 3-4 High 0-2 [facility] Comment on above: Order Comment: Comme nt For suspected repture of membranes Performed By: #### A MNISURE- #### [address] Urobilinogen,Urine Normal Normal Normal [facility] Comment on above: Order Comment: Comme nt For suspected repture of membranes Performed By: #### A MNISURE- #### [address] WBC,Urine 20-49 High 0-4 [facility] Comment on above: Order Comment: Comme nt For suspected repture of membranes Performed By: #### A MNISURE- #### [address] Ketones Auto test strip (U) [Mass/Vol]Ordered By: Jonathan Monahan on 02-26-2023 Ketones (U) [Mass/Vol] Trace Negative [facility] - UrinalysisOrder ed By: Jonathan Monahan on 02-26-2023 Hyaline casts LM Ql (Urine sed) 0-8 [LPF] 0-8 [facility] Nitrite Test strip Ql (U)Ord ered By: Jonathan Monahan on 02-26-2023 Nitrite Ql (U) Negative Negative [facility] OB Urine Drug Screen (NO THC )on 02-26-2023 Amphetamine Screen,Urine Negative Normal Negative [facility] Comment on above: Performed By: #### A MNISURE- #### [address] Barbiturate Screen,Urine Negative Normal Negative [facility] Comment on above: Performed By: #### A MNISURE- #### [place] [address] [place] Benzodiazepines Screen,Urine Negative Normal Negative [facility] Comment on above: Performed By: #### A MNISURE- #### [address] Cocaine Screen,Urine Negative Normal Negative [facility] Comment on above: Performed By: #### A MNISURE- #### [address] Opiate Screen,Urine Negative Normal Negative [facility] Comment on above: Performed By: #### A MNISURE- #### [address] Phencyclidine Screen, Urine Negative Normal Negative [facility] Comment on above: Result Comment: Thes e are unconfirmed results and should not be used for legal purposes. Drug Cut-Off Concentration: AMPH 1000 ng/mL FIONA 200 ng/mL KIMMY 200 ng/mL COCM 300 ng/mL OP 300 ng/mL PCP 25 ng/mL PERFORMED BY: [place] [address] PATHOLOGIST [employer] LARISSA GUERRA M.D. Performed By: #### A MNISURE- #### [address] Opiates [Presence] in Urine by Screen methodOrdered By: Jonathan Monahan on 02-26-2023 Opiates Screen Ql (U) Negative Negative [facility] Phencyclidine Screen Ql (U)O rdered By: Jonathan Monahan on 02-26-2023 Phencyclidine Ql (U) Negative Negative [facility] Comment on above: These are unconfirme d results and should not be used for legal purposes. Drug Cut-Off Concentration: AMPH 1000 ng/mL FIONA 200 ng/mL KIMMY 200 ng/mL COCM 300 ng/mL OP 300 ng/mL PCP 25 ng/mL Protein Auto test strip (U) [Mass/Vol]Ordered By: Jonathan Monahan on 02-26-2023 Protein (U) [Mass/Vol] Negative Negative [facility] RPR w/rfx to Quant TP Abson 02-26-2023 RPR, Rfx Quant RPR Non-Reactive Normal Non Reactive [facility] Comment on above: Result Comment: Perf ormed at: CB - [facility] [address] [id number] Pattern Checker: Alexander Jean Baptiste PhD, Phone: [phone] PERFORMED BY: [place] [address] PATHOLOGIST [employer] DEAL[employer] LARISSA GUERRA M.D. Performed By: #### A DDONUAPLUS, AMNISURE-, OBUDS #### [address] Reagin Ab [Presence] in Seru m by RPROrdered By: Jonathan Monahan on 02-26-2023 Reagin Ab RPR Ql (S) Non-Reactive Non Reactive [facility] Comment on above: Performed at: - [facility] [place] [id number] Director: Alexander Jean Baptiste PhD, Phone: [phone] Specific gravity Auto test s trip (U) [Rel density]Ordered By: Jonathan Monahan on 02-26-2023 Specific gravity (U) [Rel density] 1.016 1.001-1.030 [facility] Squamous epithelial cells de tection in urine sediment by light microscopyOrdered By: Jonathan Monahan on 02-26-2023 Epithelial cells.squamous LM Ql (Urine sed) 3-4 [HPF] 0-2 [facility] Urine Cultureon 02-26-2023 Bacteria identified Cx Nom (U) >100,000 colonies/ml mixed bacterial skin contaminants 2 Days PERFORMED BY: [place] [address] PATHOLOGIST [employer] DEAL[employer] LARISSA GUERRA M.D. Normal [facility] Comment on above: Performed By: #### A MNISURE- #### [facility] [address] Urine bacteria detection by automated methodOrdered By: Jonathan Monahan on 02-26-2023 Bacteria Auto Ql (U) 1+ None Seen [facility] Urine clarity by refractomet ry automatedOrdered By: Jonathan Monahan on 02-26-2023 Clarity Refractometry automated (U) Cloudy Clear [facility] Urine culture routineOrdered By: Jonathan Monahan on 02-26-2023 Bacteria identified Cx Nom (U) 2 Days [facility] Urine glucose measurement by automated test strip (mass/volume)Ordered By: Jonathan Monahan on 02-26-2023 Glucose Auto test strip (U) [Mass/Vol] Normal mg/dL Normal [facility] Urine hemoglobin detection b y automated test stripOrdered By: Jonathan Monahan on 02-26-2023 Hemoglobin Auto test strip Ql (U) Negative Negative [facility] Urine leukocyte esterase det ection by automated test stripOrdered By: Jonathan Monahan on 02-26-2023 Leukocyte esterase Auto test strip Ql (U) 3+ Negative [facility] Urine pH measurement by auto mated test stripOrdered By: Jonathan Monahan on 02-26-2023 pH (U) 6.5 [pH] Normal 5.0-9.0 [facility] Comment on above: Order Comment: Comme nt For suspected repture of membranes Performed By: #### A MNISURE- #### [facility] [address] [place] [address] [place] Urobilinogen Auto test strip (U) [Mass/Vol]Ordered By: Jonathan Monahan on 02-26-2023 Urobilinogen (U) [Mass/Vol] Normal mg/dL Normal [facility] Amphetamine Screen Ql (U)Ord ered By: CARY Beltre on 02-25-2023 Amphetamines Ql (U) Negative Negative [facility] Automated urine color determ inationOrdered By: CARY Beltre on 02-25-2023 Color (U) Yellow Normal Yellow [facility] Comment on above: Order Comment: Comme nt For suspected repture of membranes Performed By: #### A MNISURE- #### [facility] [address] [place] [address] [place] Barbiturates [Presence] in U rine by Screen methodOrdered By: CARY Beltre on 02-25-2023 Barbiturates Screen Ql (U) Negative Negative [facility] Benzodiazepines Screen Ql (U )Ordered By: CARY Beltre on 02-25-2023 Benzodiazepines Ql (U) Negative Negative [facility] Benzoylecgonine [Presence] i n Urine by Screen methodOrdered By: CARY Beltre on 02-25-2023 Benzoylecgonine Screen Ql (U) Negative Negative [facility] Bilirubin Test strip Ql (U)O rdered By: CARY Beltre on 02-25-2023 Bilirubin Ql (U) Negative Negative [facility] Ketones Auto test strip (U) [Mass/Vol]Ordered By: CARY Beltre on 02-25-2023 Ketones (U) [Mass/Vol] Negative Negative [facility] Nitrite Test strip Ql (U)Ord ered By: CARY Beltre on 02-25-2023 Nitrite Ql (U) Negative Negative [facility] OB Urine Drug Screen (NO THC )on 02-25-2023 Amphetamine Screen,Urine Negative Normal Negative [facility] Comment on above: Performed By: #### A MNISURE- #### [facility] [address] [place] [address] [place] Barbiturate Screen,Urine Negative Normal Negative [facility] Comment on above: Performed By: #### A MNISURE- #### [facility] [address] Benzodiazepines Screen,Urine Negative Normal Negative [facility] Comment on above: Performed By: #### A MNISURE- #### [facility] [address] Cocaine Screen,Urine Negative Normal Negative [facility] Comment on above: Performed By: #### A MNISURE- #### [facility] [address] Opiate Screen,Urine Negative Normal Negative [facility] Comment on above: Performed By: #### A MNISURE- #### [address] Phencyclidine Screen, Urine Negative Normal Negative [facility] Comment on above: Result Comment: Thes e are unconfirmed results and should not be used for legal purposes. Drug Cut-Off Concentration: AMPH 1000 ng/mL FIONA 200 ng/mL KIMMY 200 ng/mL COCM 300 ng/mL OP 300 ng/mL PCP 25 ng/mL PERFORMED BY: [place] [address] PATHOLOGIST [employer] LARISSA GUERRA M.D. Performed By: #### A MNISURE- #### [address] Opiates [Presence] in Urine by Screen methodOrdered By: CARY Beltre on 02-25-2023 Opiates Screen Ql (U) Negative Negative [facility] Phencyclidine Screen Ql (U)O rdered By: CARY Beltre on 02-25-2023 Phencyclidine Ql (U) Negative Negative [facility] Comment on above: These are unconfirme d results and should not be used for legal purposes. Drug Cut-Off Concentration: AMPH 1000 ng/mL FIONA 200 ng/mL KIMMY 200 ng/mL COCM 300 ng/mL OP 300 ng/mL PCP 25 ng/mL Protein Auto test strip (U) [Mass/Vol]Ordered By: CARY Beltre on 02-25-2023 Protein (U) [Mass/Vol] Negative Negative [facility] Specific gravity Auto test s trip (U) [Rel density]Ordered By: CARY Beltre on 02-25-2023 Specific gravity (U) [Rel density] 1.015 1.001-1.030 [facility] Urinalysison 02-25-2023 Appearance (U) Clear Normal Clear [facility] Comment on above: Order Comment: Comme nt For suspected repture of membranes Performed By: #### A MNISURE- #### [place] [address] [place] Bilirubin,Urine Negative Normal Negative [facility] Comment on above: Order Comment: Comme nt For suspected repture of membranes Performed By: #### A MNISURE- #### [address] Glucose Ql (U) Normal Normal Normal [facility] Comment on above: Order Comment: Comme nt For suspected repture of membranes Performed By: #### A MNISURE- #### [address] Ketones Ql (U) Negative Normal Negative [facility] Comment on above: Order Comment: Comme nt For suspected repture of membranes Performed By: #### A MNISURE- #### [place] [address] [place] Leukocyte esterase Test strip Ql (U) Negative Normal Negative [facility] Comment on above: Order Comment: Comme nt For suspected repture of membranes Performed By: #### A MNISURE- #### [place] [address] [place] Nitrite,Urine Negative Normal Negative [facility] Comment on above: Order Comment: Comme nt For suspected repture of membranes Performed By: #### A MNISURE- #### [place] [address] [place] Occult Blood,Urine Negative Normal Negative [facility] Comment on above: Order Comment: Comme nt For suspected repture of membranes Result Comment: PERF ORMED BY: [place] [address] PATHOLOGIST [employer] DEAL[employer] LARISSA GUERRA M.D. Performed By: #### A MNISURE- #### [place] [address] [place] Protein,Urine Negative Normal Negative [facility] Comment on above: Order Comment: Comme nt For suspected repture of membranes Performed By: #### A MNISURE- #### [facility] [address] [place] [address] Specificy Fackler,Urine 1.015 Normal 1.001-1.030 [facility] Comment on above: Order Comment: Comme nt For suspected repture of membranes Performed By: #### A MNISURE- #### [address] Urobilinogen,Urine Normal Normal Normal [facility] Comment on above: Order Comment: Comme nt For suspected repture of membranes Performed By: #### A MNISURE- #### [address] Urine clarity by refractomet ry automatedOrdered By: CARY Beltre on 02-25-2023 Clarity Refractometry automated (U) Clear Clear [facility] Urine glucose measurement by automated test strip (mass/volume)Ordered By: ARDEN Beltre on 02-25-2023 Glucose Auto test strip (U) [Mass/Vol] Normal mg/dL Normal [facility] Urine hemoglobin detection b y automated test stripOrdered By: CARY Beltre on 02-25-2023 Hemoglobin Auto test strip Ql (U) Negative Negative [facility] Urine leukocyte esterase det ection by automated test stripOrdered By: CARY Beltre on 02-25-2023 Leukocyte esterase Auto test strip Ql (U) Negative Negative [facility] Urine pH measurement by auto mated test stripOrdered By: CARY Beltre on 02-25-2023 pH (U) 6.5 [pH] Normal 5.0-9.0 [facility] Comment on above: Order Comment: Comme nt For suspected repture of membranes Performed By: #### A MNISURE- #### [address] Urobilinogen Auto test strip (U) [Mass/Vol]Ordered By: CARY Beltre on 02-25-2023 Urobilinogen (U) [Mass/Vol] Normal mg/dL Normal [facility] Amnisure(Pamg-1)on 3 Amnisure Negative Normal Negative [facility] Comment on above: Order Comment: Comme nt For suspected repture of membranes Result Comment: PERF ORMED BY: [place] [address] PATHOLOGIST [employer] DEAL[employer] LARISSA GUERRA M.D. Performed By: #### A MNISURE- #### [facility] [address] [place] [address] Amphetamine Screen Ql (U)Ord ered By: AR GURROLA on 02-22-2023 Amphetamines Ql (U) Negative Negative [facility] Automated erythrocytes count in urine sediment (number/area)Ordered By: AR GURROLA on 02-22-2023 RBC Auto (Urine sed) [#/Area] 0-1 [HPF] 0-4 [facility] Automated leukocytes count i n urine sediment (number/area)Ordered By: AR GURROLA on 02-22-2023 WBC Auto (Urine sed) [#/Area] 5-9 [HPF] 0-4 [facility] Automated urine color determ inationOrdered By: AR GURROLA on 02-22-2023 Color (U) Yellow Normal Yellow [facility] Comment on above: Order Comment: Comme nt For suspected repture of membranes Performed By: #### A MNISURE- #### [facility] [address] [place] [address] [place] Barbiturates [Presence] in U rine by Screen methodOrdered By: AR GURROLA on 02-22-2023 Barbiturates Screen Ql (U) Negative Negative [facility] Benzodiazepines Screen Ql (U )Ordered By: AR GURROLA on 02-22-2023 Benzodiazepines Ql (U) Negative Negative [facility] Benzoylecgonine [Presence] i n Urine by Screen methodOrdered By: AR GURROLA on 02-22-2023 Benzoylecgonine Screen Ql (U) Negative Negative [facility] Bilirubin Test strip Ql (U)O rdered By: AR GURROLA on 02-22-2023 Bilirubin Ql (U) Negative Negative [facility] Dipstick and Microscopicon 0 02-22-2023 Appearance (U) Clear Normal Clear [facility] Comment on above: Order Comment: Comme nt For suspected repture of membranes Performed By: #### A MNISURE- #### [address] Bacteria,Urine None Seen Normal None Seen [facility] Comment on above: Order Comment: Comme nt For suspected repture of membranes Performed By: #### A MNISURE- #### [address] Bilirubin,Urine Negative Normal Negative [facility] Comment on above: Order Comment: Comme nt For suspected repture of membranes Performed By: #### A MNISURE- #### [address] Glucose Ql (U) 100 mg/dL High Normal [facility] Comment on above: Order Comment: Comme nt For suspected repture of membranes Performed By: #### A MNISURE- #### [place] [address] [place] Hyaline Casts,Urine 0-8 Normal 0-8 [facility] Comment on above: Order Comment: Comme nt For suspected repture of membranes Result Comment: PERF ORMED BY: [place] [address] PATHOLOGIST [employer]ER LARISSA GUERRA M.D. Performed By: #### A MNISURE- #### [place] [address] [place] Ketones Ql (U) Negative Normal Negative [facility] Comment on above: Order Comment: Comme nt For suspected repture of membranes Performed By: #### A MNISURE- #### [address] Leukocyte esterase Test strip Ql (U) 2+ High Negative [facility] Comment on above: Order Comment: Comme nt For suspected repture of membranes Performed By: #### A MNISURE- #### [place] [address] [place] Nitrite,Urine Negative Normal Negative [facility] Comment on above: Order Comment: Comme nt For suspected repture of membranes Performed By: #### A MNISURE- #### [address] Occult Blood,Urine Negative Normal Negative [facility] Comment on above: Order Comment: Comme nt For suspected repture of membranes Result Comment: PERF ORMED BY: [place] [address] PATHOLOGIST 21 DEALER LARISSA GUERRA M.D. Performed By: #### A MNISURE- #### [address] Protein,Urine Negative Normal Negative [facility] Comment on above: Order Comment: Comme nt For suspected repture of membranes Performed By: #### A MNISURE- #### [place] [address] [place] RBC LM.HPF (Urine sed) [#/Area] 0 /[HPF] Normal 0-4 [facility] Comment on above: Order Comment: Comme nt For suspected repture of membranes Performed By: #### A MNISURE- #### [address] Specificy Fackler,Urine 1.013 Normal 1.001-1.030 [facility] Comment on above: Order Comment: Comme nt For suspected repture of membranes Performed By: #### A MNISURE- #### [place] [address] [place] Squamous Epithelial Cell,Urine 3-4 High 0-2 [facility] Comment on above: Order Comment: Comme nt For suspected repture of membranes Performed By: #### A MNISURE- #### [place] [address] [place] Urobilinogen,Urine Normal Normal Normal [facility] Comment on above: Order Comment: Comme nt For suspected repture of membranes Performed By: #### A MNISURE- #### [facility] [address] [place] [address] [place] WBC,Urine 5-9 High 0-4 [facility] Comment on above: Order Comment: Comme nt For suspected repture of membranes Performed By: #### A MNISURE- #### [address] Ketones Auto test strip (U) [Mass/Vol]Ordered By: AR GURROLA on 02-22-2023 Ketones (U) [Mass/Vol] Negative Negative [facility] Laboratory - UrinalysisOrder ed By: AR GURROLA on 02-22-2023 Hyaline casts LM Ql (Urine sed) 0-8 [LPF] 0-8 [facility] Nitrite Test strip Ql (U)Ord ered By: AR GURROLA on 02-22-2023 Nitrite Ql (U) Negative Negative [facility] No Panel InformationOrdered By: AR GURROLA on 02-22-2023 Membranes Rupture (PAMG-1) Negative Negative [facility] OB Urine Drug Screen (NO THC )on 02-22-2023 Amphetamine Screen,Urine Negative Normal Negative [facility] Comment on above: Performed By: #### A MNISURE- #### [place] [address] [place] Barbiturate Screen,Urine Negative Normal Negative [facility] Comment on above: Performed By: #### A MNISURE- #### [place] [address] [place] Benzodiazepines Screen,Urine Negative Normal Negative [facility] Comment on above: Performed By: #### A MNISURE- #### [place] [address] [place] Cocaine Screen,Urine Negative Normal Negative [facility] Comment on above: Performed By: #### A MNISURE- #### [place] [address] [place] Opiate Screen,Urine Negative Normal Negative [facility] Comment on above: Performed By: #### A MNISURE- #### [facility] [address] Phencyclidine Screen, Urine Negative Normal Negative [facility] Comment on above: Result Comment: Thes e are unconfirmed results and should not be used for legal purposes. Drug Cut-Off Concentration: AMPH 1000 ng/mL FIONA 200 ng/mL KIMMY 200 ng/mL COCM 300 ng/mL OP 300 ng/mL PCP 25 ng/mL PERFORMED BY: [place] [address] PATHOLOGIST [address] [employer] LARISSA GUERRA M.D. Performed By: #### A MNISURE- #### [address] Opiates [Presence] in Urine by Screen methodOrdered By: AR GURROLA on 02-22-2023 Opiates Screen Ql (U) Negative Negative [facility] Phencyclidine Screen Ql (U)O rdered By: AR GURROLA on 02-22-2023 Phencyclidine Ql (U) Negative Negative [facility] Comment on above: These are unconfirme d results and should not be used for legal purposes. Drug Cut-Off Concentration: AMPH 1000 ng/mL FIONA 200 ng/mL KIMMY 200 ng/mL COCM 300 ng/mL OP 300 ng/mL PCP 25 ng/mL Protein Auto test strip (U) [Mass/Vol]Ordered By: AR GURROLA on 02-22-2023 Protein (U) [Mass/Vol] Negative Negative [facility] Specific gravity Auto test s trip (U) [Rel density]Ordered By: AR GURROLA on 02-22-2023 Specific gravity (U) [Rel density] 1.013 1.001-1.030 [facility] Squamous epithelial cells de tection in urine sediment by light microscopyOrdered By: AR GURROLA on 02-22-2023 Epithelial cells.squamous LM Ql (Urine sed) 3-4 [HPF] 0-2 [facility] Urine Cultureon 02-22-2023 Bacteria identified Cx Nom (U) Urine Culture Results 50,000 colonies/ml Mixed Bacterial Skin Contaminants 2 Days PERFORMED BY: [address] [address] PATHOLOGIST [employer] LARISSA GUERRA M.D. Normal [facility] Comment on above: Performed By: #### A DDONUAPLUS, AMNISURE-, OBUDS #### [facility] [address] [place] [id number] [facility] Urine bacteria detection by automated methodOrdered By: AR GURROLA on 02-22-2023 Bacteria Auto Ql (U) None seen None Seen [facility] Urine clarity by refractomet ry automatedOrdered By: AR GURROLA on 02-22-2023 Clarity Refractometry automated (U) Clear Clear [facility] Urine culture routineOrdered By: AR GURROLA on 02-22-2023 Bacteria identified Cx Nom (U) [facility] Urine glucose measurement by automated test strip (mass/volume)Ordered By: AR GURROLA on 02-22-2023 Glucose Auto test strip (U) [Mass/Vol] 100 mg/dL Normal [facility] Urine hemoglobin detection b y automated test stripOrdered By: AR GURROLA on 02-22-2023 Hemoglobin Auto test strip Ql (U) Negative Negative [facility] Urine leukocyte esterase det ection by automated test stripOrdered By: AR GURROLA on 02-22-2023 Leukocyte esterase Auto test strip Ql (U) 2+ Negative [facility] Urine pH measurement by auto mated test stripOrdered By: AR GURROLA on 02-22-2023 pH (U) 7.0 [pH] Normal 5.0-9.0 [facility] Comment on above: Order Comment: Comme nt For suspected repture of membranes Performed By: #### A MNISURE- #### [facility] [address] [place] [id number] [place] Urobilinogen Auto test strip (U) [Mass/Vol]Ordered By: AR GURROLA on 02-22-2023 Urobilinogen (U) [Mass/Vol] Normal mg/dL Normal [facility] Amnisure(Pamg-1)on Amnisure Negative Normal Negative [facility] Comment on above: Order Comment: Comme nt For suspected repture of membranes Result Comment: PERF ORMED BY: [place] [address] PATHOLOGIST [address] [employer] LARISSA GUERRA M.D. Performed By: #### A MNISURE- #### [facility] [address] [place] [address] Amphetamine Screen Ql (U)Ord ered By: JUANY OROPEZA on 02-19-2023 Amphetamines Ql (U) Negative Negative [facility] Automated urine color determ inationOrdered By: JUANY OROPEZA on 02-19-2023 Color (U) Yellow Normal Yellow [facility] Comment on above: Order Comment: Name Collection Type:: Clean-Voided Midstream Performed By: #### O BUDS, UA #### [address] Barbiturates [Presence] in U rine by Screen methodOrdered By: JUANY OROPEZA on 02-19-2023 Barbiturates Screen Ql (U) Negative Negative [facility] Benzodiazepines Screen Ql (U )Ordered By: JUANY OROPEZA on 02-19-2023 Benzodiazepines Ql (U) Negative Negative [facility] Benzoylecgonine [Presence] i n Urine by Screen methodOrdered By: JUANY OROPEZA on 02-19-2023 Benzoylecgonine Screen Ql (U) Negative Negative [facility] Bilirubin Test strip Ql (U)O rdered By: JUANY OROPEZA on 02-19-2023 Bilirubin Ql (U) Negative Negative [facility] Ketones Auto test strip (U) [Mass/Vol]Ordered By: JUANY OROPEZA on 02-19-2023 Ketones (U) [Mass/Vol] Negative Negative [facility] Nitrite Test strip Ql (U)Ord ered By: JUANY OROPEZA on 02-19-2023 Nitrite Ql (U) Negative Negative [facility] No Panel InformationOrdered By: JUANY OROPEZA on 02-19-2023 Membranes Rupture (PAMG-1) Negative Negative [facility] OB Urine Drug Screen (NO THC )on 02-19-2023 Amphetamine Screen,Urine Negative Normal Negative [facility] Comment on above: Performed By: #### A DDONUAPLUS, AMNISURE-, OBUDS #### [address] Barbiturate Screen,Urine Negative Normal Negative [facility] Comment on above: Performed By: #### A DDONUAPLUS, AMNISURE-, OBUDS #### [place] [address] [place] Benzodiazepines Screen,Urine Negative Normal Negative [facility] Comment on above: Performed By: #### A DDONUAPLUS, AMNISURE-, OBUDS #### [address] Cocaine Screen,Urine Negative Normal Negative [facility] Comment on above: Performed By: #### A DDONUAPLUS, AMNISURE-, OBUDS #### [address] Opiate Screen,Urine Negative Normal Negative [facility] Comment on above: Performed By: #### A DDONUAPLUS, AMNISURE-, OBUDS #### [address] Phencyclidine Screen, Urine Negative Normal Negative [facility] Comment on above: Result Comment: Thes e are unconfirmed results and should not be used for legal purposes. Drug Cut-Off Concentration: AMPH 1000 ng/mL FIONA 200 ng/mL KIMMY 200 ng/mL COCM 300 ng/mL OP 300 ng/mL PCP 25 ng/mL PERFORMED BY: [place] [address] PATHOLOGIST [employer] LARISSA GUERRA M.D. Performed By: #### A DDONUAPLUS, AMNISURE-, OBUDS #### [address] Opiates [Presence] in Urine by Screen methodOrdered By: JUANY OROPEZA on 02-19-2023 Opiates Screen Ql (U) Negative Negative [facility] Phencyclidine Screen Ql (U)O rdered By: JUANY OROPEZA on 02-19-2023 Phencyclidine Ql (U) Negative Negative [facility] Comment on above: These are unconfirme d results and should not be used for legal purposes. Drug Cut-Off Concentration: AMPH 1000 ng/mL FIONA 200 ng/mL KIMMY 200 ng/mL COCM 300 ng/mL OP 300 ng/mL PCP 25 ng/mL Protein Auto test strip (U) [Mass/Vol]Ordered By: JUANY OROPEZA on 02-19-2023 Protein (U) [Mass/Vol] Negative Negative [facility] Specific gravity Auto test s trip (U) [Rel density]Ordered By: JUANY OROPEZA on 02-19-2023 Specific gravity (U) [Rel density] 1.004 1.001-1.030 [facility] Urinalysison 02-19-2023 Appearance (U) Clear Normal Clear [facility] Comment on above: Order Comment: Name Collection Type:: Clean-Voided Midstream Performed By: #### O BUDS, UA #### [address] Bilirubin,Urine Negative Normal Negative [facility] Comment on above: Order Comment: Name Collection Type:: Clean-Voided Midstream Performed By: #### O BUDS, UA #### [address] Glucose Ql (U) Normal Normal Normal [facility] Comment on above: Order Comment: Name Collection Type:: Clean-Voided Midstream Performed By: #### O BUDS, UA #### [place] [id number] [place] Ketones Ql (U) Negative Normal Negative [facility] Comment on above: Order Comment: Name Collection Type:: Clean-Voided Midstream Performed By: #### O BUDS, UA #### [place] [id number] [facility] Leukocyte esterase Test strip Ql (U) Negative Normal Negative [facility] Comment on above: Order Comment: Name Collection Type:: Clean-Voided Midstream Performed By: #### O BUDS, UA #### [place] [address] [place] Nitrite,Urine Negative Normal Negative [facility] Comment on above: Order Comment: Name Collection Type:: Clean-Voided Midstream Performed By: #### O BUDS, UA #### [address] Occult Blood,Urine Negative Normal Negative [facility] Comment on above: Order Comment: Name Collection Type:: Clean-Voided Midstream Result Comment: PERF ORMED BY: [place] [address] PATHOLOGIST [address] [employer] LARISSA GUERRA M.D. Performed By: #### O BUDS, UA #### [place] [address] [place] Protein,Urine Negative Normal Negative [facility] Comment on above: Order Comment: Name Collection Type:: Clean-Voided Midstream Performed By: #### O BUDS, UA #### [place] [address] [place] Specificy Fackler,Urine 1.004 Normal 1.001-1.030 [facility] Comment on above: Order Comment: Name Collection Type:: Clean-Voided Midstream Performed By: #### O BUDS, UA #### [place] [address] [place] Urobilinogen,Urine Normal Normal Normal [facility] Comment on above: Order Comment: Name Collection Type:: Clean-Voided Midstream Performed By: #### O BUDS, UA #### [place] [address] [place] Urine clarity by refractomet ry automatedOrdered By: JUANY OROPEZA on 02-19-2023 Clarity Refractometry automated (U) Clear Clear [facility] Urine glucose measurement by automated test strip (mass/volume)Ordered By: JUANY OROPEZA on 02-19-2023 Glucose Auto test strip (U) [Mass/Vol] Normal mg/dL Normal [facility] Urine hemoglobin detection b y automated test stripOrdered By: JUANY OROPEZA on 02-19-2023 Hemoglobin Auto test strip Ql (U) Negative Negative [facility] Urine leukocyte esterase det ection by automated test stripOrdered By: JUANY OROPEZA on 02-19-2023 Leukocyte esterase Auto test strip Ql (U) Negative Negative [facility] Urine pH measurement by auto mated test stripOrdered By: JUANY OROPEZA on 02-19-2023 pH (U) 6.5 [pH] Normal 5.0-9.0 [facility] Comment on above: Order Comment: Name Collection Type:: Clean-Voided Midstream Performed By: #### O BUDS, UA #### [facility] [address] [place] [address] [place] Urobilinogen Auto test strip (U) [Mass/Vol]Ordered By: JUANY OROPEZA on 02-19-2023 Urobilinogen (U) [Mass/Vol] Normal mg/dL Normal [facility] Amphetamine Screen Ql (U)Ord ered By: CARY Beltre on 02-17-2023 Amphetamines Ql (U) Negative Negative [facility] Automated urine color determ inationOrdered By: CARY Beltre on 02-17-2023 Color (U) Yellow Normal Yellow [facility] Comment on above: Order Comment: Name Collection Type:: Clean-Voided Midstream Performed By: #### O BUDS, UA #### [facility] [address] [place] [id number] [place] Barbiturates [Presence] in U rine by Screen methodOrdered By: CARY Beltre on 02-17-2023 Barbiturates Screen Ql (U) Negative Negative [facility] Benzodiazepines Screen Ql (U )Ordered By: CARY Beltre on 02-17-2023 Benzodiazepines Ql (U) Negative Negative [facility] Benzoylecgonine [Presence] i n Urine by Screen methodOrdered By: CARY Beltre on 02-17-2023 Benzoylecgonine Screen Ql (U) Negative Negative [facility] Bilirubin Test strip Ql (U)O rdered By: CARY Beltre on 02-17-2023 Bilirubin Ql (U) Negative Negative [facility] Ketones Auto test strip (U) [Mass/Vol]Ordered By: CARY Beltre on 02-17-2023 Ketones (U) [Mass/Vol] Negative Negative [facility] Nitrite Test strip Ql (U)Ord ered By: CARY Beltre on 02-17-2023 Nitrite Ql (U) Negative Negative [facility] OB Urine Drug Screen (NO THC )on 02-17-2023 Amphetamine Screen,Urine Negative Normal Negative [facility] Comment on above: Performed By: #### O BUDS, UA #### [address] Barbiturate Screen,Urine Negative Normal Negative [facility] Comment on above: Performed By: #### O BUDS, UA #### [place] [address] [place] Benzodiazepines Screen,Urine Negative Normal Negative [facility] Comment on above: Performed By: #### O BUDS, UA #### [place] [address] [place] Cocaine Screen,Urine Negative Normal Negative [facility] Comment on above: Performed By: #### O BUDS, UA #### [place] [address] [place] Opiate Screen,Urine Negative Normal Negative [facility] Comment on above: Performed By: #### O BUDS, UA #### [place] [address] [place] Phencyclidine Screen, Urine Negative Normal Negative [facility] Comment on above: Result Comment: Thes e are unconfirmed results and should not be used for legal purposes. Drug Cut-Off Concentration: AMPH 1000 ng/mL FIONA 200 ng/mL KIMMY 200 ng/mL COCM 300 ng/mL OP 300 ng/mL PCP 25 ng/mL PERFORMED BY: [place] [address] PATHOLOGIST [employer] LARISSA GUERRA M.D. Performed By: #### O BUDS, UA #### [place] [address] [place] Opiates [Presence] in Urine by Screen methodOrdered By: CARY Beltre on 02-17-2023 Opiates Screen Ql (U) Negative Negative [facility] Phencyclidine Screen Ql (U)O rdered By: CARY Beltre on 02-17-2023 Phencyclidine Ql (U) Negative Negative [facility] Comment on above: These are unconfirme d results and should not be used for legal purposes. Drug Cut-Off Concentration: AMPH 1000 ng/mL FIONA 200 ng/mL KIMMY 200 ng/mL COCM 300 ng/mL OP 300 ng/mL PCP 25 ng/mL Protein Auto test strip (U) [Mass/Vol]Ordered By: CARY Beltre on 02-17-2023 Protein (U) [Mass/Vol] Negative Negative [facility] Specific gravity Auto test s trip (U) [Rel density]Ordered By: CARY Beltre on 02-17-2023 Specific gravity (U) [Rel density] 1.003 1.001-1.030 [facility] Urinalysison 02-17-2023 Appearance (U) Clear Normal Clear [facility] Comment on above: Order Comment: Name Collection Type:: Clean-Voided Midstream Performed By: #### O BUDS, UA #### [facility] [address] [place] [address] Bilirubin,Urine Negative Normal Negative [facility] Comment on above: Order Comment: Name Collection Type:: Clean-Voided Midstream Performed By: #### O BUDS, UA #### [facility] [address] [place] [id number] [facility] Glucose Ql (U) Normal Normal Normal [facility] Comment on above: Order Comment: Name Collection Type:: Clean-Voided Midstream Performed By: #### O BUDS, UA #### [facility] [address] [place] [id number] [facility] Ketones Ql (U) Negative Normal Negative [facility] Comment on above: Order Comment: Name Collection Type:: Clean-Voided Midstream Performed By: #### O BUDS, UA #### [facility] [address] [place] [address] Leukocyte esterase Test strip Ql (U) Negative Normal Negative [facility] Comment on above: Order Comment: Name Collection Type:: Clean-Voided Midstream Performed By: #### O BUDS, UA #### [address] Nitrite,Urine Negative Normal Negative [facility] Comment on above: Order Comment: Name Collection Type:: Clean-Voided Midstream Performed By: #### O BUDS, UA #### [address] Occult Blood,Urine Negative Normal Negative [facility] Comment on above: Order Comment: Name Collection Type:: Clean-Voided Midstream Result Comment: PERF ORMED BY: [place] [address] PATHOLOGIST [employer] LARISSA GUERRA M.D. Performed By: #### O BUDS, UA #### [address] Protein,Urine Negative Normal Negative [facility] Comment on above: Order Comment: Name Collection Type:: Clean-Voided Midstream Performed By: #### O BUDS, UA #### [address] Specificy Fackler,Urine 1.003 Normal 1.001-1.030 [facility] Comment on above: Order Comment: Name Collection Type:: Clean-Voided Midstream Performed By: #### O BUDS, UA #### [place] [address] [place] Urobilinogen,Urine Normal Normal Normal [facility] Comment on above: Order Comment: Name Collection Type:: Clean-Voided Midstream Performed By: #### O BUDS, UA #### [place] [address] [place] Urine clarity by refractomet ry automatedOrdered By: CARY Beltre on 02-17-2023 Clarity Refractometry automated (U) Clear Clear [facility] Urine glucose measurement by automated test strip (mass/volume)Ordered By: ARDEN Beltre on 02-17-2023 Glucose Auto test strip (U) [Mass/Vol] Normal mg/dL Normal [facility] Urine hemoglobin detection b y automated test stripOrdered By: CARY Beltre on 02-17-2023 Hemoglobin Auto test strip Ql (U) Negative Negative [facility] Urine leukocyte esterase det ection by automated test stripOrdered By: CARY Beltre on 02-17-2023 Leukocyte esterase Auto test strip Ql (U) Negative Negative [facility] Urine pH measurement by auto mated test stripOrdered By: CARY Beltre on 02-17-2023 pH (U) 6.5 [pH] Normal 5.0-9.0 [facility] Comment on above: Order Comment: Name Collection Type:: Clean-Voided Midstream Performed By: #### O BUDS, UA #### [facility] [address] [place] [address] Urobilinogen Auto test strip (U) [Mass/Vol]Ordered By: CARY Beltre on 02-17-2023 Urobilinogen (U) [Mass/Vol] Normal mg/dL Normal [facility] Group B Streptococcus cultur eOrdered By: AR GURROLA on 02-16-2023 S. agalactiae Org specific cx Ql (Unsp spec) [facility] S. agalactiae Org specific cx Ql (Unsp spec) [facility] Strep B Cultureon 02-16-2023 Strep B Culture Strep B Only Cult No Group B Beta Streptococcus Isolated 3 Days PERFORMED BY: [place] [address] PATHOLOGIST [employer] LARISSA GUERRA M.D. Normal [facility] Comment on above: Performed By: #### A DDONUAPLUS, AMNISURE-, OBUDS #### [facility] [address] [place] [address] Amphetamine Screen Ql (U)Ord ered By: Jonathan Monahan on 02-07-2023 Amphetamines Ql (U) Negative Negative [facility] Automated urine color determ inationOrdered By: Jonathan Monahan on 02-07-2023 Color (U) Yellow Normal Yellow [facility] Comment on above: Order Comment: Name Collection Type:: Clean-Voided Midstream Performed By: #### O BUDS, UA #### [facility] [address] Barbiturates [Presence] in U rine by Screen methodOrdered By: Jonathan Monahan on 02-07-2023 Barbiturates Screen Ql (U) Negative Negative [facility] Benzodiazepines Screen Ql (U )Ordered By: Jonathan Monahan on 02-07-2023 Benzodiazepines Ql (U) Negative Negative [facility] Benzoylecgonine [Presence] i n Urine by Screen methodOrdered By: Jonathan Monahan on 02-07-2023 Benzoylecgonine Screen Ql (U) Negative Negative [facility] Bilirubin Test strip Ql (U)O rdered By: Jonathan Monahan on 02-07-2023 Bilirubin Ql (U) Negative Negative [facility] Ketones Auto test strip (U) [Mass/Vol]Ordered By: Jonathan Monahan on 02-07-2023 Ketones (U) [Mass/Vol] Trace Negative [facility] Nitrite Test strip Ql (U)Ord ered By: Jonathan Monahan on 02-07-2023 Nitrite Ql (U) Negative Negative [facility] OB Urine Drug Screen (NO THC )on 02-07-2023 Amphetamine Screen,Urine Negative Normal Negative [facility] Comment on above: Performed By: #### O BUDS, UA #### [facility] [address] [place] [address] [place] Barbiturate Screen,Urine Negative Normal Negative [facility] Comment on above: Performed By: #### O BUDS, UA #### [facility] [address] [place] [address] [place] Benzodiazepines Screen,Urine Negative Normal Negative [facility] Comment on above: Performed By: #### O BUDS, UA #### [place] [address] [place] Cocaine Screen,Urine Negative Normal Negative [facility] Comment on above: Performed By: #### O BUDS, UA #### [facility] [address] Opiate Screen,Urine Negative Normal Negative [facility] Comment on above: Performed By: #### O BUDS, UA #### [address] Phencyclidine Screen, Urine Negative Normal Negative [facility] Comment on above: Result Comment: Thes e are unconfirmed results and should not be used for legal purposes. Drug Cut-Off Concentration: AMPH 1000 ng/mL FIONA 200 ng/mL KIMMY 200 ng/mL COCM 300 ng/mL OP 300 ng/mL PCP 25 ng/mL PERFORMED BY: [place] [address] PATHOLOGIST [address] [employer] LARISSA GUERRA M.D. Performed By: #### O BUDS, UA #### [address] Opiates [Presence] in Urine by Screen methodOrdered By: Jonathan Monahan on 02-07-2023 Opiates Screen Ql (U) Negative Negative [facility] Phencyclidine Screen Ql (U)O rdered By: Jonathan Monahan on 02-07-2023 Phencyclidine Ql (U) Negative Negative [facility] Comment on above: These are unconfirme d results and should not be used for legal purposes. Drug Cut-Off Concentration: AMPH 1000 ng/mL FIONA 200 ng/mL KIMMY 200 ng/mL COCM 300 ng/mL OP 300 ng/mL PCP 25 ng/mL Protein Auto test strip (U) [Mass/Vol]Ordered By: Jonathan Monahan on 02-07-2023 Protein (U) [Mass/Vol] Negative Negative [facility] Specific gravity Auto test s trip (U) [Rel density]Ordered By: Jonathan Monahan on 02-07-2023 Specific gravity (U) [Rel density] 1.006 1.001-1.030 [facility] Urinalysison 02-07-2023 Appearance (U) Clear Normal Clear [facility] Comment on above: Order Comment: Name Collection Type:: Clean-Voided Midstream Performed By: #### O BUDS, UA #### [address] Bilirubin,Urine Negative Normal Negative [facility] Comment on above: Order Comment: Name Collection Type:: Clean-Voided Midstream Performed By: #### O BUDS, UA #### [place] [address] [place] Glucose Ql (U) Normal Normal Normal [facility] Comment on above: Order Comment: Name Collection Type:: Clean-Voided Midstream Performed By: #### O BUDS, UA #### [place] [address] [place] Ketones Ql (U) Trace High Negative [facility] Comment on above: Order Comment: Name Collection Type:: Clean-Voided Midstream Performed By: #### O BUDS, UA #### [address] Leukocyte esterase Test strip Ql (U) Negative Normal Negative [facility] Comment on above: Order Comment: Name Collection Type:: Clean-Voided Midstream Performed By: #### O BUDS, UA #### [place] [address] [place] Nitrite,Urine Negative Normal Negative [facility] Comment on above: Order Comment: Name Collection Type:: Clean-Voided Midstream Performed By: #### O BUDS, UA #### [place] [address] [place] Occult Blood,Urine Negative Normal Negative [facility] Comment on above: Order Comment: Name Collection Type:: Clean-Voided Midstream Result Comment: PERF ORMED BY: [place] [address] PATHOLOGIST [address] [employer] LARISSA GUERRA M.D. Performed By: #### O BUDS, UA #### [place] [address] [place] Protein,Urine Negative Normal Negative [facility] Comment on above: Order Comment: Name Collection Type:: Clean-Voided Midstream Performed By: #### O BUDS, UA #### [place] [address] [place] Specificy Fackler,Urine 1.006 Normal 1.001-1.030 [facility] Comment on above: Order Comment: Name Collection Type:: Clean-Voided Midstream Performed By: #### O BUDS, UA #### [address] Urobilinogen,Urine Normal Normal Normal [facility] Comment on above: Order Comment: Name Collection Type:: Clean-Voided Midstream Performed By: #### O BUDS, UA #### [address] Urine clarity by refractomet ry automatedOrdered By: Jonathan Monahan on 02-07-2023 Clarity Refractometry automated (U) Clear Clear [facility] Urine glucose measurement by automated test strip (mass/volume)Ordered By: Jonathan Monahan on 02-07-2023 Glucose Auto test strip (U) [Mass/Vol] Normal mg/dL Normal [facility] Urine hemoglobin detection b y automated test stripOrdered By: Jonathan Monahan on 02-07-2023 Hemoglobin Auto test strip Ql (U) Negative Negative [facility] Urine leukocyte esterase det ection by automated test stripOrdered By: Jonathan Monahan on 02-07-2023 Leukocyte esterase Auto test strip Ql (U) Negative Negative [facility] Urine pH measurement by auto mated test stripOrdered By: Jonathan Monahan on 02-07-2023 pH (U) 6.0 [pH] Normal 5.0-9.0 [facility] Comment on above: Order Comment: Name Collection Type:: Clean-Voided Midstream Performed By: #### O BUDS, UA #### [address] Urobilinogen Auto test strip (U) [Mass/Vol]Ordered By: Jonathan Monahan on 02-07-2023 Urobilinogen (U) [Mass/Vol] Normal mg/dL Normal [facility] Amnisure(Pamg-1)on 3 Amnisure Negative Normal Negative [facility] Comment on above: Order Comment: Comme nt For suspected repture of membranes Result Comment: PERF ORMED BY: [place] [address] PATHOLOGIST [employer] LARISSA GUERRA M.D. Performed By: #### A MNISURE- #### [facility] [address] [place] [address] Amphetamine Screen Ql (U)Ord ered By: JUANY OROPEZA on 01-26-2023 Amphetamines Ql (U) Negative Negative [facility] Automated erythrocytes count in urine sediment (number/area)Ordered By: JUANY OROPEZA on 01-26-2023 RBC Auto (Urine sed) [#/Area] 0-1 [HPF] 0-4 [facility] Automated leukocytes count i n urine sediment (number/area)Ordered By: JUANY OROPEZA on 01-26-2023 WBC Auto (Urine sed) [#/Area] 0-1 [HPF] 0-4 [facility] Automated urine color determ inationOrdered By: JUANY OROPEZA on 01-26-2023 Color (U) Yellow Normal Yellow [facility] Comment on above: Order Comment: Name Collection Type:: Clean-Voided Midstream Performed By: #### O BUDS, UA #### [facility] [address] [place] [address] Barbiturates [Presence] in U rine by Screen methodOrdered By: JUANY OROPEZA on 01-26-2023 Barbiturates Screen Ql (U) Negative Negative [facility] Benzodiazepines Screen Ql (U )Ordered By: JUANY OROPEZA on 01-26-2023 Benzodiazepines Ql (U) Negative Negative [facility] Benzoylecgonine [Presence] i n Urine by Screen methodOrdered By: JUANY OROPEZA on 01-26-2023 Benzoylecgonine Screen Ql (U) Negative Negative [facility] Bilirubin Test strip Ql (U)O rdered By: JUANY OROPEZA on 01-26-2023 Bilirubin Ql (U) Negative Negative [facility] Dipstick and Microscopicon 0 01-26-2023 Bacteria,Urine None Seen Normal None Seen [facility] Comment on above: Order Comment: Name Collection Type:: Clean-Voided Midstream Performed By: #### O BUDS, UA #### [address] Hyaline Casts,Urine 0-8 Normal 0-[address] [facility] Comment on above: Order Comment: Name Collection Type:: Clean-Voided Midstream Result Comment: PERF ORMED BY: [place] [address] PATHOLOGIST [employer] LARISSA GUERRA M.D. Performed By: #### O BUDS, UA #### [address] RBC LM.HPF (Urine sed) [#/Area] 0 /[HPF] Normal 0-4 [facility] Comment on above: Order Comment: Name Collection Type:: Clean-Voided Midstream Performed By: #### O BUDS, UA #### [address] Squamous Epithelial Cell,Urine 1-2 Normal 0-2 [facility] Comment on above: Order Comment: Name Collection Type:: Clean-Voided Midstream Performed By: #### O BUDS, UA #### [address] WBC LM.HPF (Urine sed) [#/Area] 0 /[HPF] Normal 0-4 [facility] Comment on above: Order Comment: Name Collection Type:: Clean-Voided Midstream Performed By: #### O BUDS, UA #### [address] Ketones Auto test strip (U) [Mass/Vol]Ordered By: JUANY OROPEZA on 01-26-2023 Ketones (U) [Mass/Vol] Negative Negative [facility] Laboratory - UrinalysisOrder ed By: JUANY OROPEZA on 01-26-2023 Hyaline casts LM Ql (Urine sed) 0-8 [LPF] 0-8 [facility] Nitrite Test strip Ql (U)Ord ered By: JUANY OROPEZA on 01-26-2023 Nitrite Ql (U) Negative Negative [facility] No Panel InformationOrdered By: JUANY OROPEZA on 01-26-2023 Membranes Rupture (PAMG-1) Negative Negative [facility] OB Urine Drug Screen (NO THC )on 01-26-2023 Amphetamine Screen,Urine Negative Normal Negative [facility] Comment on above: Performed By: #### O BUDS, UA #### [address] Barbiturate Screen,Urine Negative Normal Negative [facility] Comment on above: Performed By: #### O BUDS, UA #### [address] Benzodiazepines Screen,Urine Negative Normal Negative [facility] Comment on above: Performed By: #### O BUDS, UA #### [address] Cocaine Screen,Urine Negative Normal Negative [facility] Comment on above: Performed By: #### O BUDS, UA #### [address] Opiate Screen,Urine Negative Normal Negative [facility] Comment on above: Performed By: #### O BUDS, UA #### [address] Phencyclidine Screen, Urine Negative Normal Negative [facility] Comment on above: Result Comment: Thes e are unconfirmed results and should not be used for legal purposes. Drug Cut-Off Concentration: AMPH 1000 ng/mL FIONA 200 ng/mL KIMMY 200 ng/mL COCM 300 ng/mL OP 300 ng/mL PCP 25 ng/mL PERFORMED BY: [place] [address] PATHOLOGIST [employer] LARISSA GUERRA M.D. Performed By: #### O BUDS, UA #### [address] Opiates [Presence] in Urine by Screen methodOrdered By: JUANY OROPEZA on 01-26-2023 Opiates Screen Ql (U) Negative Negative [facility] Phencyclidine Screen Ql (U)O rdered By: JUANY OROPEZA on 01-26-2023 Phencyclidine Ql (U) Negative Negative [facility] Comment on above: These are unconfirme d results and should not be used for legal purposes. Drug Cut-Off Concentration: AMPH 1000 ng/mL FIONA 200 ng/mL KIMMY 200 ng/mL COCM 300 ng/mL OP 300 ng/mL PCP 25 ng/mL Protein Auto test strip (U) [Mass/Vol]Ordered By: JUANY OROPEZA on 01-26-2023 Protein (U) [Mass/Vol] Trace mg/dL Negative [facility] Specific gravity Auto test s trip (U) [Rel density]Ordered By: JUANY OROPEZA on 01-26-2023 Specific gravity (U) [Rel density] 1.021 1.001-1.030 [facility] Squamous epithelial cells de tection in urine sediment by light microscopyOrdered By: JUANY OROPEZA on 01-26-2023 Epithelial cells.squamous LM Ql (Urine sed) 1-2 [HPF] 0-2 [facility] Urinalysison 01-26-2023 Appearance (U) Cloudy Critically abnormal Clear [facility] Comment on above: Order Comment: Name Collection Type:: Clean-Voided Midstream Performed By: #### O BUDS, UA #### [facility] [address] [place] [address] [place] Bilirubin,Urine Negative Normal Negative [facility] Comment on above: Order Comment: Name Collection Type:: Clean-Voided Midstream Performed By: #### O BUDS, UA #### [facility] [address] [place] [id number] [place] Glucose Ql (U) Normal Normal Normal [facility] Comment on above: Order Comment: Name Collection Type:: Clean-Voided Midstream Performed By: #### O BUDS, UA #### [facility] [address] [place] [id number] [place] Ketones Ql (U) Negative Normal Negative [facility] Comment on above: Order Comment: Name Collection Type:: Clean-Voided Midstream Performed By: #### O BUDS, UA #### [facility] [address] [place] [id number] [place] Leukocyte esterase Test strip Ql (U) Negative Normal Negative [facility] Comment on above: Order Comment: Name Collection Type:: Clean-Voided Midstream Performed By: #### O BUDS, UA #### [place] [address] [place] Nitrite,Urine Negative Normal Negative [facility] Comment on above: Order Comment: Name Collection Type:: Clean-Voided Midstream Performed By: #### O BUDS, UA #### [place] [address] [place] Occult Blood,Urine Negative Normal Negative [facility] Comment on above: Order Comment: Name Collection Type:: Clean-Voided Midstream Result Comment: PERF ORMED BY: [place] [address] PATHOLOGIST [employer] LARISSA GUERRA M.D. Performed By: #### O BUDS, UA #### [place] [address] [place] Protein,Urine Trace High Negative [facility] Comment on above: Order Comment: Name Collection Type:: Clean-Voided Midstream Performed By: #### O BUDS, UA #### [place] [address] [place] Specificy Fackler,Urine 1.021 Normal 1.001-1.030 [facility] Comment on above: Order Comment: Name Collection Type:: Clean-Voided Midstream Performed By: #### O BUDS, UA #### [place] [address] [place] Urobilinogen,Urine Normal Normal Normal [facility] Comment on above: Order Comment: Name Collection Type:: Clean-Voided Midstream Performed By: #### O BUDS, UA #### [place] [address] [place] Urine bacteria detection by automated methodOrdered By: JUANY OROPEZA on 01-26-2023 Bacteria Auto Ql (U) None seen None Seen [facility] Urine clarity by refractomet ry automatedOrdered By: JUANY OROPEZA on 01-26-2023 Clarity Refractometry automated (U) Cloudy Clear [facility] Urine glucose measurement by automated test strip (mass/volume)Ordered By: JUANY OROPEZA on 01-26-2023 Glucose Auto test strip (U) [Mass/Vol] Normal mg/dL Normal [facility] Urine hemoglobin detection b y automated test stripOrdered By: JUANY OROPEZA on 01-26-2023 Hemoglobin Auto test strip Ql (U) Negative Negative [facility] Urine leukocyte esterase det ection by automated test stripOrdered By: JUANY OROPEZA on 01-26-2023 Leukocyte esterase Auto test strip Ql (U) Negative Negative [facility] Urine pH measurement by auto mated test stripOrdered By: JUANY OROPEZA on 01-26-2023 pH (U) 6.0 [pH] Normal 5.0-9.0 [facility] Comment on above: Order Comment: Name Collection Type:: Clean-Voided Midstream Performed By: #### O BUDS, UA #### [facility] [address] Urobilinogen Auto test strip (U) [Mass/Vol]Ordered By: JUANY OROPEZA on 01-26-2023 Urobilinogen (U) [Mass/Vol] Normal mg/dL Normal [facility] Amnisure(Pamg-1)on Amnisure Negative Normal Negative [facility] Comment on above: Order Comment: Comme nt For suspected repture of membranes Result Comment: PERF ORMED BY: [facility] [address] [place] [address] PATHOLOGIST [employer] LARISSA GUERRA M.D. Performed By: #### A DDONUAPLUS, AMNISURE-, OBUDS #### [facility] [address] Amphetamine Screen Ql (U)Ord ered By: Jonathan Monahan on 01-24-2023 Amphetamines Ql (U) Negative Negative [facility] Automated erythrocytes count in urine sediment (number/area)Ordered By: Jonathan Monahan on 01-24-2023 RBC Auto (Urine sed) [#/Area] 0-1 [HPF] 0-4 [facility] Automated leukocytes count i n urine sediment (number/area)Ordered By: Jonathan Hero on 01-24-2023 WBC Auto (Urine sed) [#/Area] 0-1 [HPF] 0-4 [facility] Automated urine color determ inationOrdered By: Jonathan Monahan on 01-24-2023 Color (U) Yellow Normal Yellow [facility] Comment on above: Order Comment: Name Collection Type:: Clean-Voided Midstream Performed By: #### A DDONUAPLUS, AMNISURE-, OBUDS #### [facility] [address] [place] [address] [place] Barbiturates [Presence] in U rine by Screen methodOrdered By: Jonathan Monahan on 01-24-2023 Barbiturates Screen Ql (U) Negative Negative [facility] Benzodiazepines Screen Ql (U )Ordered By: Jonathan Monahan on 01-24-2023 Benzodiazepines Ql (U) Negative Negative [facility] Benzoylecgonine [Presence] i n Urine by Screen methodOrdered By: Jonathan Monahan on 01-24-2023 Benzoylecgonine Screen Ql (U) Negative Negative [facility] Bilirubin Test strip Ql (U)O rdered By: Jonathan Monahan on 01-24-2023 Bilirubin Ql (U) Negative Negative [facility] Dipstick and Microscopicon 0 01-24-2023 Appearance (U) Clear Normal Clear [facility] Comment on above: Order Comment: Name Collection Type:: Clean-Voided Midstream Performed By: #### A DDONUAPLUS, AMNISURE-, OBUDS #### [facility] [address] [place] [id number] [place] Bacteria,Urine None Seen Normal None Seen [facility] Comment on above: Order Comment: Name Collection Type:: Clean-Voided Midstream Performed By: #### A DDONUAPLUS, AMNISURE-, OBUDS #### [facility] [address] [place] [id number] [place] Bilirubin,Urine Negative Normal Negative [facility] Comment on above: Order Comment: Name Collection Type:: Clean-Voided Midstream Performed By: #### A DDONUAPLUS, AMNISURE-, OBUDS #### [address] Glucose Ql (U) Normal Normal Normal [facility] Comment on above: Order Comment: Name Collection Type:: Clean-Voided Midstream Performed By: #### A DDONUAPLUS, AMNISURE-, OBUDS #### [place] [address] [place] Hyaline Casts,Urine 0-8 Normal 0-8 [facility] Comment on above: Order Comment: Name Collection Type:: Clean-Voided Midstream Result Comment: PERF ORMED BY: [place] [address] PATHOLOGIST [employer] LARISSA GUERRA M.D. Performed By: #### A DDONUAPLUS, AMNISURE-, OBUDS #### [address] Ketones Ql (U) Trace High Negative [facility] Comment on above: Order Comment: Name Collection Type:: Clean-Voided Midstream Performed By: #### A DDONUAPLUS, AMNISURE-, OBUDS #### [address] Leukocyte esterase Test strip Ql (U) Negative Normal Negative [facility] Comment on above: Order Comment: Name Collection Type:: Clean-Voided Midstream Performed By: #### A DDONUAPLUS, AMNISURE-, OBUDS #### [place] [address] [place] Nitrite,Urine Negative Normal Negative [facility] Comment on above: Order Comment: Name Collection Type:: Clean-Voided Midstream Performed By: #### A DDONUAPLUS, AMNISURE-, OBUDS #### [place] [address] [place] Occult Blood,Urine Negative Normal Negative [facility] Comment on above: Order Comment: Name Collection Type:: Clean-Voided Midstream Result Comment: PERF ORMED BY: [place] [address] PATHOLOGIST [employer] LARISSA GUERRA M.D. Performed By: #### A DDONUAPLUS, AMNISURE-, OBUDS #### [place] [address] [place] Protein,Urine Trace High Negative [facility] Comment on above: Order Comment: Name Collection Type:: Clean-Voided Midstream Performed By: #### A DDONUAPLUS, AMNISURE-, OBUDS #### [place] [address] [place] RBC LM.HPF (Urine sed) [#/Area] 0 /[HPF] Normal 0-4 [facility] Comment on above: Order Comment: Name Collection Type:: Clean-Voided Midstream Performed By: #### A DDONUAPLUS, AMNISURE-, OBUDS #### [address] Specificy Fackler,Urine 1.013 Normal 1.001-1.030 [facility] Comment on above: Order Comment: Name Collection Type:: Clean-Voided Midstream Performed By: #### A DDONUAPLUS, AMNISURE-, OBUDS #### [address] Squamous Epithelial Cell,Urine 0-1 Normal 0-2 [facility] Comment on above: Order Comment: Name Collection Type:: Clean-Voided Midstream Performed By: #### A DDONUAPLUS, AMNISURE-, OBUDS #### [place] [address] [place] Urobilinogen,Urine Normal Normal Normal [facility] Comment on above: Order Comment: Name Collection Type:: Clean-Voided Midstream Performed By: #### A DDONUAPLUS, AMNISURE-, OBUDS #### [place] [address] [place] WBC LM.HPF (Urine sed) [#/Area] 0 /[HPF] Normal 0-4 [facility] Comment on above: Order Comment: Name Collection Type:: Clean-Voided Midstream Performed By: #### A DDONUAPLUS, AMNISURE-, OBUDS #### [facility] [address] [place] [address] [place] Ketones Auto test strip (U) [Mass/Vol]Ordered By: Jonathan Monahan on 01-24-2023 Ketones (U) [Mass/Vol] Trace Negative [facility] - UrinalysisOrder ed By: Jonathan Monahan on 01-24-2023 Hyaline casts LM Ql (Urine sed) 0-8 [LPF] 0-8 [facility] Nitrite Test strip Ql (U)Ord ered By: Jonathan Monahan on 01-24-2023 Nitrite Ql (U) Negative Negative [facility] No Panel InformationOrdered By: Jonathan Monahan on 01-24-2023 Membranes Rupture (PAMG-1) Negative Negative [facility] OB Urine Drug Screen (NO THC )on 01-24-2023 Amphetamine Screen,Urine Negative Normal Negative [facility] Comment on above: Performed By: #### A DDONUAPLUS, AMNISURE-, OBUDS #### [facility] [address] [place] [address] [place] Barbiturate Screen,Urine Negative Normal Negative [facility] Comment on above: Performed By: #### A DDONUAPLUS, AMNISURE-, OBUDS #### [facility] [address] [place] [address] [place] Benzodiazepines Screen,Urine Negative Normal Negative [facility] Comment on above: Performed By: #### A DDONUAPLUS, AMNISURE-, OBUDS #### [facility] [address] [place] [phone] [place] Cocaine Screen,Urine Negative Normal Negative [facility] Comment on above: Performed By: #### A DDONUAPLUS, AMNISURE-, OBUDS #### [facility] [address] [place] [phone] [place] Opiate Screen,Urine Negative Normal Negative [facility] Comment on above: Performed By: #### A DDONUAPLUS, AMNISURE-, OBUDS #### [facility] [address] Phencyclidine Screen, Urine Negative Normal Negative [facility] Comment on above: Result Comment: Thes e are unconfirmed results and should not be used for legal purposes. Drug Cut-Off Concentration: AMPH 1000 ng/mL FIONA 200 ng/mL KIMMY 200 ng/mL COCM 300 ng/mL OP 300 ng/mL PCP 25 ng/mL PERFORMED BY: [facility] [address] [place] [address] PATHOLOGIST [employer] LARISSA GUERRA M.D. Performed By: #### A DDONUAPLUS, AMNISURE-, OBUDS #### [facility] [address] Opiates [Presence] in Urine by Screen methodOrdered By: Jonathan Monahan on 01-24-2023 Opiates Screen Ql (U) Negative Negative [facility] Phencyclidine Screen Ql (U)O rdered By: Jonathan Monahan on 01-24-2023 Phencyclidine Ql (U) Negative Negative [facility] Comment on above: These are unconfirme d results and should not be used for legal purposes. Drug Cut-Off Concentration: AMPH 1000 ng/mL FIONA 200 ng/mL KIMMY 200 ng/mL COCM 300 ng/mL OP 300 ng/mL PCP 25 ng/mL Protein Auto test strip (U) [Mass/Vol]Ordered By: Jonathan Monahan on 01-24-2023 Protein (U) [Mass/Vol] Trace mg/dL Negative [facility] Specific gravity Auto test s trip (U) [Rel density]Ordered By: Jonathan Monahan on 01-24-2023 Specific gravity (U) [Rel density] 1.013 1.001-1.030 [facility] Squamous epithelial cells de tection in urine sediment by light microscopyOrdered By: Jonathan Monahan on 01-24-2023 Epithelial cells.squamous LM Ql (Urine sed) 0-1 [HPF] 0-2 [facility] Urine bacteria detection by automated methodOrdered By: Jonathan Monahan on 01-24-2023 Bacteria Auto Ql (U) None seen None Seen [facility] Urine clarity by refractomet ry automatedOrdered By: Jonathan Monahan on 01-24-2023 Clarity Refractometry automated (U) Clear Clear [facility] Urine glucose measurement by automated test strip (mass/volume)Ordered By: Jonathan Monahan on 01-24-2023 Glucose Auto test strip (U) [Mass/Vol] Normal mg/dL Normal [facility] Urine hemoglobin detection b y automated test stripOrdered By: Jonathan Monahan on 01-24-2023 Hemoglobin Auto test strip Ql (U) Negative Negative [facility] Urine leukocyte esterase det ection by automated test stripOrdered By: Jonathan Monahan on 01-24-2023 Leukocyte esterase Auto test strip Ql (U) Negative Negative [facility] Urine pH measurement by auto mated test stripOrdered By: Jonathan Monahan on 01-24-2023 pH (U) 6.0 [pH] Normal 5.0-9.0 [facility] Comment on above: Order Comment: Name Collection Type:: Clean-Voided Midstream Performed By: #### A DDONUAPLUS, AMNISURE-, OBUDS #### [address] Urobilinogen Auto test strip (U) [Mass/Vol]Ordered By: Jonathan Monahan on 01-24-2023 Urobilinogen (U) [Mass/Vol] Normal mg/dL Normal [facility] Coding Summaryon 01-23-2023 Coding Summary HTMLBase 64 GwpfqixjCNr3rSu+PGhlYWQ+P C3KAMDjF72itQKoqT3qQ7YZER lOSywgQVBQTElOSyIgbmFtZT1 kaXNjZXJu IC8+LQ2eLLVuUquhkZIxe8M9h DY2F07dvi9kIYlmtNU8IAJeYj Fgoccjb1boyNk4LAnnRurzPoW t FNUbmR31VND1iD62Bm33wPKvk XXyg4nucLx0EvElHHWpYUZ5yO xuSOrbl3CnHNLeB94klLBsz7O 6 HFGclIvqrAOrNoKxxRS9mJ6oG Yqcnczei7clplngHgn4jr71eF Wke6N5uYW9Y8XhkyV8MRIwgBC g DhrtiEHHcJ1ctbkxo5alnnkzT kFgKGXeYJr3UEx7MAKlnLddFz GqPG34TAA0DCDpxlBmN7JcKDM s bRexKuI7j6E9Mm2PF0LFOytvA 1VNTUFSWTwvdGQ+KZ84sd22Z7 HyFsawCzw6YQKsDWF2lXN5pN8 n BLEcRCjhv6O5tAN9M4BtyeYql d9jg7rnKVQbDRnbS00xcEQzt9 N2XLIhbUK5DJOqgBwkJsPgbU0 3 Oyc+RONtqZseb3BrJnrei3xcw 7kwgEa0GnpdYXUbgkGorIdlCX U5s7OvUe7vHKUcoMH2bHB1bI9 i DkQeSvB9OIhcF939SyPldCZcZ utiS16wL0SklSH+JJYoTln0VK BeyVzqKW9yJ8EaXKTxtuhvzVM m aKhpCG9sSWXhfbvgNQJjeS5zK BQgZ4i9HxMkWiO5YZcoF2AvHJ ByvshsKv61gJ2lEjMwMiI3DTr u H2JhlcL9BXJicKNwLDtgGEE5A 33lc0H1HGCtFLTsVFL6wOG7fW 1hbGlnbjogbGVmdDsgdmVydGl j XYkfMUkjD315JAJxeZahRmUxN GluZyBEYXRlOiAgMDgvMDcvMj AyMzwvdGQ+VRLkQRS0cYcnXHA n eLWaTRvsQd1sdDnyfYgsJZ0eC QZmjlhmQKFegC7aKBMtsSLmcY xxEY3iUIXmaaavb125BlTgNOV 0 QYLpcOKwQ5WofN2xWaUaCLApZ ERaA7VotBJyIRwwT213ONvwQg S0QXKdgcKhQ1BmZSMmxGdnDtP 0 f7E0Kz8St0TxnpnqT4VvzAGnC vIcRtujZBo4Q3YhFlwvdXG+PC 76TCEyHA40RFf8ZRY4oHleTUh i ZLOvF4NxgF7eJdBlWHGuEUTbG yc+PHRhYmxlIHdpZHRoPScxMD RjKgWwxSidOC3kKo2fPLWqJIA v jXaylDNlMjNhs3seMEJaKGmrO P1vyJciJ5PcjPN1WGTgi4h6Ma 61V36kQ7EiiGU+OXJspZE3bGN 0 cV1nKpXsRnJ7YTjxH227GxHcm WRhLwdrk0gui1lftFl6SrG1QM RemnPjiMitZRO9p3EwNw86E88 s IHdpZHRoPSIxNSUiIHZhbGlnb k1anU9pZt6+KSRtvFF9cET3qY 2sJhVfZnG4NCegA199FvXmuIC v Slvqo6qlp5eqjHy1LkUdPJIep fBtwBkfISQ6i1JaVw08J1TnaG zbk1TeUro0ox55pVJkx5J1aSG 9 P7TdECIoxnqfbETazHquAH5kB DBetikoPZRlhO2xATAoJ9y9Yx IaFaC1ZIluK1VdwhB0FIWfkHM g BQEiwPXAfT4djmtco7hixgwjC jVbORKuNOx7LUy0NRMszJqyAp RxCNF8HaD2ODP0xISwgS1lkLc n rremeU0uLul+NYJ8aIVblQQCN V6pBrqytYQ+KXEyRAO1eCrwDG xjLXKysS5sWQFrV6b1AsIxXlM 1 BYnpN6KabvO9YZTlmPUmBFRlp KRPlK3hugxtm1aqgevlRbKzLU UqWWg2DGl6OPYvcIplGwViZTD 0 SbY4NCG6iBObtM5drVqosihpk G9wOyc+PcjahSrbASE6HWe4M8 CbQdo5HSXiqWicLY2whNJiXVq u Ox8elVfkrWqlRU8tDDLgmojym 842UyElt8lrNNJsoJYfAHqcPP K8E93hy2K7OAXvCLWrFUQ5gKJ 4 pU9rdSilubnnrGMavAzoetBss MvfKDzxMDdbA313JFYwmWmoUv JfQUs1A0BvBpv9UIJlzJuaQW0 n pEIeHCacJx0wuLinjFasSN2pN FPpicsfp958KhCzp0mcNIIylG XqYPczVLK4X67ys3G8VRQnSMR w MUJ8vOQ9yC8udVrdhoyqhNMwm AohesFkxLmzSEebIWhcK922ZF ZjeDukJzDzbZp6P7KfTlj7EWW z oNcpKX3yfULtSPfqJe1esNixf VafZZ6nAIIvpqppz473VuXnb7 nqMLOkfZOwKFusHCC3P48ky1Q 6 RQKaEBShADK2qJF5vM0ezIlnv jogbGVmdDsgdmVydGljYWwtYW pqS976XSFmdRtoRjWjiJwgcxE g RAizOLx8K8PeKeftbLN+PC90Y VSnVY32hORgfXCdv3hikFw1Cn IbOBZnGHU3vVoxVAdox9YlLHJ t E74gbLRgz8P3DVGsiPsgbZChQ cZcnLV6aJ5eQYzttiksm0fpnc goQyqaq2cnpa83cH48M89qOEm p RTUfLOVcBLWvJNLsiKtmhe6xi G9wIi8+KOZzlFR4sWK6eK7mOA HiEcO7PClfS384AdQgoNDqTti j v9pkj9nrfMp5EiR3WXKdkoPwp HdgTZU8r4AnNc56Q94xSXdrBB QnSMKeSBXhZBBpfEgapx6tkT0 w Ii8+BPPgcFX7uLS1sG6dGpOeP aR6MItpW772SfJqnYMzQhhbA0 5nM3EgnUK+VPGuAja3TAQltYv s CD7gmZAuGZrsYx5lZCE1EnNyN mKyFXgiY6XvSNHearzlciyaqY G8HHRjFRDhwN34Nm0jzVpuIJB w tBVFwA3giuqie6aqlrjfToYwJ ZOrFKb0HJm7VMGpvFtdTjWhXK U0OqX5PDX3dKQwcR2kaJbhtfi g gH1xV0KzYJCeickoOs47qB3wW uWnMrQ2GScxAux+E4fCH15JUC EFQZXRFA0BFEXLCPjLHkjqiRU + QRWlFFV5gTmpUAguMZSzlY3vH YKsG4w2AnIpAhW6JYqxK9PeSH SqneipPx56lN0tYxAaRfI9EOo u M2FqyfQ2QYOvmGYyUXyeKKZ5F 83zq2D2MDQnXPUzMPA4uCS1vL 1hbGlnbjogbGVmdDsgdmVydGl j CKbpHGpjA960CSViuXcmIvPeX bZ9UqY2UHT3J7NtHem1JEHflE ukGH4hmMDjFVgzQo8seHaaqAi g OD8oUUVysyxpIBJxpM3oPQZzn OQtbUctKE9iSUDpylhjt970Fz RzYIY2KUPapHUvQ5JraG3xStB j TXUcLTVbF9QdpFYjHSwbN252E ZewXcM2ESDlgcLgJ8IvKSUsgX poUqR0g2V4Tz3vMtGAVRBcbjy v dGQ+XPJlUZX5vOrfPNuhHHSra D2uUPOrS7b5WwLdQyT6JMxgX2 KkXZGyvrlzHt37rO6dQjEfOmJ 1 QLzlU5AjlfT4QZFbiGAdJHjoB JN2P50ef4C5COMvGTNkKUP2zK H6kT3vlHqkakhvgZQwyRdgdmK y sJbrSJhiZNaoT437PPKobVmuE kZFTUFMRTwvdGQ+XMZsEOX2fV zrFDzmUNVjcD1nBHNgX9o6UoW w CtZ5KJxbC4AbARCtkxkqVr91f J9pRoFpZyP6ZGjfS6BzshQ3SF TapVJhWAjsTMT2C09zj6Z0ZOH w JLVzKGN5uDN2sY6orWldkdzbg GVmdDsgdmVydGljYWwtYWxpZ2 32AAVtoGhkEj6HBE49DI92T1S y PjwvdGFibGU+PHRhYmxlIHdpZ UHdONspXKKkVtZkiCatHU5xLl 5dTUAhYJXaaQtblXWnLoZwx6l s JWRnRAueFR6tjQpzA0OzgSK4R DZos6b2Yi87Z39lP6WorKJ+PG PzlIM1qXZ4kZ0eIzRlVlM2UFl p F305IwPskCBjBhiyy1hwk0blq Qd2VbHzJQEnylWcaQtgZMQ5z4 WnUc23E90aJUsiSRHwMPRnMLP i CGYnpDpjxl4upM1cHk9+PGNvb IH1rLX6lK4tFrAwGvT4KGdyG5 08CoBsuGKkUyigP64hO4TlbZL + AKPrNfh7GMLihPjsGL2zxQKdT VevBw0iZUR6MmSnXxOrAIllY7 FqUGEfsuadyhsqjYI9OANmMEW w aI02Ff9yeOtiFd5cVOVpXLD5W ROrzMFkR2VxdB4yYcNxASFjAI QxL3GboMLsAEttR932PUcvWyK 7 CKSqrdYaW2LoNNEqmOpmNcT2a 5U0Bl5LoAdzuQZcDY9pKkZhZX f8Y8PoBcl6QHWjsQooZN9cbHU k YJwlYf4iqXsipSouRS0mFVBui sdkq663KrFpp3sxFBCvsIBvED drAKF9R17hl5B1WGDlJGSqBDX 7 wCR3fX9iwLengqtydRHloVtnz xSvxJnqIGkzEBjqG671CBIrmY kdMiCCIqz4B0QdYqw3JYVybCk s NF9mzOYaSLbsBv3dtMqryXhqZ Z7vOVUwaiflc032QyRma0ycFU NslKKwYIwoKBD6A89di0J2WIC w PXTjKKM0eQB1iI9zlXwzrbuvy GVmdDsgdmVydGljYWwtYWxpZ2 05FIHysVjwYu5OTks7Y3IcGwx 0 CQPimSpyHK9fiKEfGOxfIo5hn TmeqJptNB6hXGNpqbqqt005Pj Pip8tkVBQusUJzCBsvVGS7A39 s x2K3RZQjTLApBIL2tHH5bS2pn GlnbjogbGVmdDsgdmVydGljYW zpCRtdX560GHHpoRyvKmBvzPG y OjwvdGQ+SD08dl64M9OjBhzfR rv4UXJzQUG1sPA9jW2mPVTgXE dfn6H4cBT4H7IaclDurl0kf5w s YXB (more content not included)... [facility] Coding Summaryon 01-19-2023 Coding Summary HTMLBase 64 EghgmfdkZHd0uAj+PGhlYWQ+P S8HVZHaP36axMMynT4dO6FANS lOSywgQVBQTElOSyIgbmFtZT1 kaXNjZXJu IC8+UZ9lKJPkGpjbkIHgr1D9j LM0P35vqj9yFFosoAV5UEKqDp Vchhcxt3pqvFd2SBzgHosjLyG t DVNceJ05CKA8zD79Yb07hCGig JZux4oklGh4QgCdRWEzPBJ5zT viLJvue1VdFSVfN07amBXzp8L 6 NBBciFvmuDZaZqUveOA6hI3pW Cneicast0uvwudaQri2wm04yL Fac0X5mAX9G7GfwhG8PBJoxTL g VgjhkOHJuG0odnosf7hdimovV wQmMGTgPYv9OAx8MFKfbYgtUx IkGQ24ZLM8YDStkxWdD0IoZGY s jJloWvQ8p8J6Hp0WM6TGVugoY 1VNTUFSWTwvdGQ+YB11fs88D6 JsKfupZhd4SJYcCKI2mYQ5zY7 n ORVlZUxlu1Q3cAP9O8PyzxRhy r0ug2piYXWaXXefP84eyNOdz4 X5WAMvkCB6JGFriZwxRuDnlW2 3 Oyc+GLDvxSzms6NbNyewk1iye 2atsYh0XuzjCUGbhuVqtNxtOA V5q0NkNi5hEKOnhEZ3iJW6rC7 i ApNdJhY5QUqkY387UjSgzHBaV myyC16xU4DhuDT+LBIfIff9DW HyfGdgDM1xA0YeSEHumriueVY m mNucIQ9aQMWzwdugNEOanU3fO LDcN6z5GkExQsU7GWbyF2NlWE EawachIt18iU6pRwPfWuA1YNg u C8FtnnL3RZNnrKLuFGfsQHH3K 30qf5E4ZCLpRGHiRFY4jRO2qH 1hbGlnbjogbGVmdDsgdmVydGl j BEikJZusY756WAZbwUwdWbKaP GluZyBEYXRlOiAgMDgvMDMvMj AyMzwvdGQ+IVAxRGC1vUdqFFQ n yMIuGNkhFh9bbJsqlWllPB4rP ZTzidoxIOGbrC2bRGXqaVFhxX nsOM5dILSnqhnhc055FkHqNLL 0 VGTmeYJyO5TybO6hRcFfLAWbD IUrT3LtdCPjFJptA894OEcuFy W0SBBkpuFbB5JdPXNhoSydTaJ 0 p2B0Qc9Fz3QvawceR9BjeIAaY xUgGdpzXQt2J4HvByypeDR+PC 52WLZeJT70MAr7LUQ1fQkaYZe i CRFzG4FmlJ7oPhImDXJrTSFjH yc+PHRhYmxlIHdpZHRoPScxMD NbMzRdbMptDN9iXf6oWUWdNDF v rYndsBGbGsHar4jlTJYpVNfuE L2abVoxR4YxcGF0ZTQtu4y5Ot 31T61bK9XewGZ+ISQzmYP9pVB 0 nN8vBrSxUbM8DWpkU246XjPts GCcOgvyq6fgg2fjeFy3RsY1AL IqntBhcWdjWKF6d6SwVh00Y15 s IHdpZHRoPSIxNSUiIHZhbGlnb h6lsF0gNt7+CJNdwYW3hRS6iT 5gXcDoSvO5QGhrW211YnAkvSF v Pjubb3lgh1bjbZa2XkNcOTJoo tLxzHnfMHC2y9RtXc51L6MxcM ekp8QgYrl5wn84aHGii6O9bRV 9 Q3VwNQXlkqpogARtbMwvXS6tI FDyjzejXRZibX5pDWKhS9n1To KgFxG3TDidA9HvygU5XOPjqBW g JAUtjAJIoV5xrxgqq7unmqwxS xRkTBJlFAq1FUn8ULQajGfiEi RkTCC9YaI9FNS4sFPinG7dbHw n esrugM4xTiq+VBM6gRGnaTDXL A8aHfexlBD+KHQeCTF4qAykST loLBLflJ5lIXQhJ9t6HlKvNmP 1 PXmxM2CykrJ3IKNrcQEmMTUzm DCKfL3hlzpbb7apmgfpSqFdNJ XgRUl9VCi6MKZsdUykOtMdKHL 0 DoQ3MNR4uKTpwG8xuYotkvamc G9wOyc+EqdtmLvvRBJ4OPm0Y9 ZrFwo0HFPrrWseKA1rlHEzCVu u Uu1ipTuwvFelMN1aTDDlqwvsb 117JaKid9mpJJBulWDuWJjqVX S8T49fa5U0IMEgGKClXBH2vPA 4 rP1xsXsbwaplbOUeqVdgxkNkg QbfTMmjQMmrB637KZKglYjyNu IlRNa0U5ZcFkl1YCOmtPyrIH4 n dVUsFHgeIu4rqXqrlUhxYT1yO DAkzmrnh532ZrJuy1chADKpwX RsFYvpXCV1T72ww9C7IEEdKIV w ZAI1mEY0gT8wtCsxejtsyNEtj QuhunByaPihWKdcUKdcP786BI JmeUasCwHryEo6Z9KjYdj8VSF z eFwkGL0rjEJfWRtdIh7bsXdlk IwlLT2gVUFnxblxj893ImFey9 vhDRMxbFZaTZhrCUZ1E90uy6K 6 UDGzERUhGBB6eJO6bD9opGohd jogbGVmdDsgdmVydGljYWwtYW qvM497OGKezKctExVobZqabrB g LZwoRVn7G2JfLzhuzIQ+PC90Y SJiGR83uJLjtXXzb1bmpRg8Yf NbELZfUXN8nYluYKner8FzVLP t N46hsVQxb3U4CKSwzTgqxSOnF vKppTX1kL7kJSazadduk8ajbu uxOnlwm5wqvw11oS59B50qJFl p FWIiIBOtFCJuTUFsoRqiah5uh G9wIi8+MDYtkYO6eVO8rK7xMB LmPzK5THpeY061BqLsdVXaKto j k3cca8qmkQr4NtE8VEUhkdOyn SfzAXN6i5GvWw22O24xUMyeRU EgHODiMWAkRHOtzSppsc6iiT9 w Ii8+QHTfyWB2nSD2eE4dOzRgL dP7FLorH902UqXdrKXzZuqrH3 2fQ9TqbFN+OBAmUeq6UTCkwVl s LD0thWExRZfgOy6lGUD4CmIrZ iFpXQrwD6XkDMGupgkioahiaZ O1NMOhNCOccN41Ac7rcJhwYOX w hDVQmK7qcqiti6dbktyqOhGuQ VOaEJg9IQc6HSBfhVprJzYsZC B1AyB6YTY6bSXgkY3wcAeiwzs g hO9rC7TuPKZuvixnXt56cW8sL aEcJvK8TPzrMiq+G1lVQ67MNJ IIGSBTIZ7UQVZUNXvKDurkeOB + IJRnNJY4eYwrXNaiLMFofA0iA IKsI8v7HsNaAjR7WZlsU6QpOA WcadyzOw63rI5iMaMcYdD1MXx u H5AswaE7EAOufNDwTCsiEEZ9O 49ot6A8ZRKkJOSzVTI7uAH2oW 1hbGlnbjogbGVmdDsgdmVydGl j QNppASqhP059IBScpNkuWrTnN bJ3YfD3HBM5D1LjLwu9TLIdlB qmNL3dsJClVYgrJr5fmLrhyDu g HB6xURJvlthiHITtaZ5qUPHgo GMkkEgaXY1dXVOlwiems078Sh SvMGS4IKYtuSRnP3SosI9qJwA j AGPrBBWzS0TsjWCsRBzdK878N DxaHgX9LBGellQdB5JyURGxaJ cxRyT1d4U4Mt6jShDMCNCuupq v dGQ+MHSsEMW5sYhtJBoiURMjs J8jVLYvG9n8PxTiXaD8UTnhB3 PeOPYoeahoGm62qU4eWnCaTbB 1 SPruT4LitrC5LFEoqEAvKLpmL EN0T42oi1K0SULaURJuTBR6jF R1rA7ydAagtmzrbMEplSksydA y qTinXGtpAXwxG396LEKbtGjuX kZFTUFMRTwvdGQ+AVNcNDO9yN iaPAabWVIlmL4vTESwH2u0ClC w CcU2FOniE2VlHXFabtegGc46r H9aAkUbFqP2NZprP8SgnzK5VE ZonNKiKZenOLD4G00iu1N9BPY w BSSgUGY8kSG3dE8xjYtbkeopv GVmdDsgdmVydGljYWwtYWxpZ2 97MRFdeSgsQnHkVJAyEV6ybWa v dGQ+PC52pm50S8PxCzejSwp7W MQwGJY8bZR6gT4hTBRjHExeh7 X9gFU6Y8JgzuVeds1ju2jhCKA z SBruY83hjIZto4G9FAHmuYC8N JFwdXnzPwSvdY49Ddt+PGNvbG bmz9DqGynby1oso6nbsUy8BvT w WSCrdxAhwNvlIPB9k4GfEk54A 29sIHdpZHRoPSIzMCUiIHZhbG sbfw4nkY2yBt0+RUOukND3dWZ 0 qF3tDmBnSsC0KOxiA263FkZxp DVnGvzoa2kqs5rwcNg8RcLrZT IdlsXxvVmdXDD0c3TnDz48A0A v aJecn6ReOvt2ao75rAVel7K9p CO3L1IzQMTurqrfaEWagPwhNB 6aUICdpdvkWIWowZ9oTVUiH5p 0 ZvCtAhA5CNjoN3PwcaJ2RQCda ZAyCARltJPFbV0oxfzki9okez ouOlWjAVDyVQm6HNo6RPVauDh u CkZyUGZ4YlU1DYU1zKWvzB8qq YzgiifbyE3eHsq+FPh2m0yvyZ XqUE3zoQR8KH19HX47fHAsg8P 5 mXN8F0RpTRMguizqzmaukOL1U RIxOBWwfF17Hf4vxGkcOo8jUB UgYPL4VAKkfREnK9EeoZ5fNaP j BDCaEIJrV2DqdIHuXPokU538G HbjSdH0GZWwblCmC6GpDTVxnU oqBzA2b8N8Eg5UGC76XB18KJ6 8 kHDew3X0hWM2E3XxQXSzxyish lipvLM9ZNNqUYCtqY02Iv3piS tzXo3hANSeTHG2CCWntWMhY0E v lK3zPjAxBTVtHJOoS5McpOJtQ PgsO732BUpmJvB5ZTRmkfMtT0 OcMZIwsRfcJhT5j1W4Iu4HQm9 6 CE32PB28aQZfk4V8wZK3Y5NiQ KSbenmkkxhhySK7KVUbKFBwwC 98Vw9udEyoFs3zHNEeHTH0NBZ p gKRtI6KmrY8nRfOlBCYyNPTuI 4BjuVFkEJfmQ702NRilEpW4YR AexrXrQ2PfPQKbrGxlHvT0f1E 7 Tj8ARWjtypg0R4YxIllwnVC+P I20RDKzJK16eGUssYKku8uepW s7KnMmUEIxYAL6jLdhBZjxx8A k ZXI (more content not included)... [facility] ED Clinical Summaryon 2022 ED Clinical Summary [facility] ? Urgent Care [address] [place] [address] [id number] Clinical Summary PERSON INFORMATION Name: BARBRA CLAROS Age: 27 Years Sex: FEMALE : 1995 MRN: Acct#: Visit Reason: UC - Shoulder Pain or Swelling; RT ELBOW/SHOULDER PAIN Arrival: 01/16/2023 11:29:24 Discharge: 01/16/2023 12:40:00 LOS: 000 01:11 Check In: 01/16/2023 11:29:24 Checkout: 01/16/2023 12:40:00 Address: [address] [facility] [address] PCP: Provider, None PROVIDER INFORMATION Provider Role Assigned Unassigned Esther Friend PA-C ED PA 01/16/2023 12:04:40 Earlene RN, Miranda ED Nurse 01/16/2023 12:16:32 VITALS INFORMATION Vital Sign Triage Latest Temperature Tympanic Temperature Temporal Artery Pulse Rate O2 Sat 98 % 98 % Respiratory Rate Blood Pressure /60 mmHg /60 mmHg MEDICAL INFORMATION Medications Given: Allergy Information: Triaminic Allergy; chlorpheniramine/dextrome thorphan/PSE PHYSICIAN DOCUMENTATION DISCHARGE INFORMATION: Discharge Disposition: Home Discharge Location: Home PATIENT EDUCATION INFORMATION Instructions: Shoulder Pain; Shoulder Range of Motion Exercises; How to Use a Sling Follow-Up: With: Address: When: Simona Holloway [phone] Within 1 to 2 days Comments: Call to help find a local primary care physician. With: Address: When: Return to this practice DIAGNOSIS: 1:Right shoulder injury Patient Understands: Yes - Patient/family/caregiver verbalizes understanding of instructions given Comment: [facility] ED Patient Summaryon 023 ED Patient Summary [facility] ? Urgent Care [address] [place] [address] [id number] PATIENT DISCHARGE INSTRUCTIONS Patient Information Name: BARBRA CLAROS Age: 27 Years Date of : 1995 MRN: [id number] Reason For Visit: UC - Shoulder Pain or Swelling; RT ELBOW/SHOULDER PAIN Arrival Time: 01/16/2023 11:29:24 Primary Care Physician: Provider, None Attending Physician: Esther Friend PA-C Comment: Patient Education With: Address: When: Simona Holloway [phone] Within 1 to 2 days Comments: Call to help find a local primary care physician. With: Address: When: Return to this practice Shoulder Pain Many things can cause shoulder pain, including: ? An injury to the shoulder. ? Overuse of the shoulder. ? Arthritis. The source of the pain can be: ? Inflammation. ? An injury to the shoulder joint. ? An injury to a tendon, ligament, or bone. Follow these instructions at home: Pay attention to changes in your symptoms. Let your health care provider know about them. Follow these instructions to relieve your pain. If you have a sling: ? Wear the sling as told by your health care provider. Remove it only as told by your health care provider. ? Loosen the sling if your fingers tingle, become numb, or turn cold and blue. ? Keep the sling clean. ? If the sling is not waterproof: ? Do not let it get wet. Remove it to shower or bathe. ? Move your arm as little as possible, but keep your hand moving to prevent swelling. Managing pain, stiffness, and swelling ? If directed, put ice on the painful area: ? Put ice in a plastic bag. ? Place a towel between your skin and the bag. ? Leave the ice on for 20 minutes, 2?3 times per day. Stop applying ice if it does not help with the pain. ? Squeeze a soft ball or a foam pad as much as possible. This helps to keep the shoulder from swelling. It also helps to strengthen the arm. General instructions ? Take alup-zfa-xdjahoc and prescription medicines only as told by your health care provider. ? Keep all follow-up visits as told by your health care provider. This is important. Contact a health care provider if: ? Your pain gets worse. ? Your pain is not relieved with medicines. ? New pain develops in your arm, hand, or fingers. Get help right away if: ? Your arm, hand, or fingers: ? Tingle. ? Become numb. ? Become swollen. ? Become painful. ? Turn white or blue. Summary ? Shoulder pain can be caused by an injury, overuse, or arthritis. ? Pay attention to changes in your symptoms. Let your health care provider know about them. ? This condition may be treated with a sling, ice, and pain medicines. ? Contact your health care provider if the pain gets worse or new pain develops. Get help right away if your arm, hand, or fingers tingle or become numb, swollen, or painful. ? Keep all follow-up visits as told by your health care provider. This is important. This information is not intended to replace advice given to you by your health care provider. Make sure you discuss any questions you have with your health care provider. Document Revised: 02/18/2022 Document Reviewed: 02/18/2022 [employer] Patient Education ? 2022 [employer] Shoulder Range of Motion Exercises Shoulder range of motion (ROM) exercises are done to keep the shoulder moving freely or to increase movement. They are often recommended for people who have shoulder pain or stiffness or who are recovering from a shoulder surgery. Phase 1 exercise When you are able, do this exercise 1?2 times per day for 30?60 seconds in each direction, or as directed by your health care provider. Pendulum exercise To do this exercise while sittin. Sit in a chair or at the edge of your bed with your feet flat on the floor. 2. Let your affected arm hang down in front of you over the edge of the bed or chair. 3. Relax your shoulder, arm, and hand. 4. Rock your body so your arm gently swings in small circles. You can also use your unaffected arm to start the motion. 5. Repeat changing the direction of the circles, swinging your arm left and right, and swinging your arm forward and back. To do this exercise while standin. Stand next to a sturdy chair or table, and hold on to it with your hand on your unaffected side. 2. Bend forward at the waist. 3. Bend your knees slightly. 4. Relax your shoulder, arm, and hand. 5. While keeping your shoulder relaxed, use body motion to swing your arm in small circles. 6. Repeat changing the direction of the circles, swinging your arm left and right, and swinging your arm forward and back. 7. Between exercises, stand up tall and take a short break to relax your lower back. Phase 2 exercises Do these exercises 1?2 times per day or as told by your health care provider. (more content not included)... Normal [facility] Amphetamine Screen Ql (U)Ord ered By: JUANY OROPEZA on 01-14-2023 Amphetamines Ql (U) Negative Negative [facility] Automated urine color determ inationOrdered By: JUANY OROPEZA on 01-14-2023 Color (U) Yellow Normal Yellow [facility] Comment on above: Order Comment: Name Collection Type:: Clean-Voided Midstream Performed By: #### O BUDS, UA #### [facility] [address] [place], [place] [id number] [place] Barbiturates [Presence] in U rine by Screen methodOrdered By: JUANY OROPEZA on 01-14-2023 Barbiturates Screen Ql (U) Negative Negative [facility] Benzodiazepines Screen Ql (U )Ordered By: JUANY OROPEZA on 01-14-2023 Benzodiazepines Ql (U) Negative Negative [facility] Benzoylecgonine [Presence] i n Urine by Screen methodOrdered By: JUANY OROPEZA on 01-14-2023 Benzoylecgonine Screen Ql (U) Negative Negative [facility] Bilirubin Test strip Ql (U)O rdered By: JUANY OROPEZA on 01-14-2023 Bilirubin Ql (U) Negative Negative [facility] Fibronectinon 01-15-20 23 Fibronectin Negative Normal Negative [facility] Comment on above: Order Comment: Name Collection Type:: Clean-Voided Midstream Result Comment: PERF ORMED BY: [place] [address] PATHOLOGIST [address] [employer] LARISSA GUERRA M.D. Performed By: #### O BUDS, UA #### [facility] [address] [place] [address] [place] fibronectinOrdered By: JUANY OROPEZA on 01-14-2023 Fibronectin. (Vag fld) [Mass/Vol] Negative Negative [facility] Ketones Auto test strip (U) [Mass/Vol]Ordered By: JUANY OROPEZA on 01-14-2023 Ketones (U) [Mass/Vol] Negative Negative [facility] Nitrite Test strip Ql (U)Ord ered By: JUANY OROPEZA on 01-14-2023 Nitrite Ql (U) Negative Negative [facility] OB Urine Drug Screen (NO THC )on 01-14-2023 Amphetamine Screen,Urine Negative Normal Negative [facility] Comment on above: Performed By: #### O BUDS, UA #### [address] Barbiturate Screen,Urine Negative Normal Negative [facility] Comment on above: Performed By: #### O BUDS, UA #### [place] [address] [place] Benzodiazepines Screen,Urine Negative Normal Negative [facility] Comment on above: Performed By: #### O BUDS, UA #### [place] [address] [place] Cocaine Screen,Urine Negative Normal Negative [facility] Comment on above: Performed By: #### O BUDS, UA #### [place] [address] [place] Opiate Screen,Urine Negative Normal Negative [facility] Comment on above: Performed By: #### O BUDS, UA #### [place] [address] [place] Phencyclidine Screen, Urine Negative Normal Negative [facility] Comment on above: Result Comment: Thes e are unconfirmed results and should not be used for legal purposes. Drug Cut-Off Concentration: AMPH 1000 ng/mL FIONA 200 ng/mL KIMMY 200 ng/mL COCM 300 ng/mL OP 300 ng/mL PCP 25 ng/mL PERFORMED BY: [place] [address] PATHOLOGIST [address] LARISSA GUERRA M.D. Performed By: #### O BUDS, UA #### [address] Opiates [Presence] in Urine by Screen methodOrdered By: JUANY OROPEZA on 01-14-2023 Opiates Screen Ql (U) Negative Negative [facility] Phencyclidine Screen Ql (U)O rdered By: JUANY JIMBO on 01-14-2023 Phencyclidine Ql (U) Negative Negative [facility] Comment on above: These are unconfirme d results and should not be used for legal purposes. Drug Cut-Off Concentration: AMPH 1000 ng/mL FIONA 200 ng/mL KIMMY 200 ng/mL COCM 300 ng/mL OP 300 ng/mL PCP 25 ng/mL Protein Auto test strip (U) [Mass/Vol]Ordered By: JUANY OROPEZA on 01-14-2023 Protein (U) [Mass/Vol] Negative Negative [facility] Specific gravity Auto test s trip (U) [Rel density]Ordered By: JUANY OROPEZA on 01-14-2023 Specific gravity (U) [Rel density] 1.007 1.001-1.030 [facility] Urinalysison 01-14-2023 Appearance (U) Clear Normal Clear [facility] Comment on above: Order Comment: Name Collection Type:: Clean-Voided Midstream Performed By: #### O BUDS, UA #### [facility] [address] Bilirubin,Urine Negative Normal Negative [facility] Comment on above: Order Comment: Name Collection Type:: Clean-Voided Midstream Performed By: #### O BUDS, UA #### [facility] [address] [place] [id number] [facility] Glucose Ql (U) Normal Normal Normal [facility] Comment on above: Order Comment: Name Collection Type:: Clean-Voided Midstream Performed By: #### O BUDS, UA #### [facility] [address] [place] [id number] [facility] Ketones Ql (U) Negative Normal Negative [facility] Comment on above: Order Comment: Name Collection Type:: Clean-Voided Midstream Performed By: #### O BUDS, UA #### [facility] [address] [place] [address] Leukocyte esterase Test strip Ql (U) Negative Normal Negative [facility] Comment on above: Order Comment: Name Collection Type:: Clean-Voided Midstream Performed By: #### O BUDS, UA #### [address] Nitrite,Urine Negative Normal Negative [facility] Comment on above: Order Comment: Name Collection Type:: Clean-Voided Midstream Performed By: #### O BUDS, UA #### [address] Occult Blood,Urine Negative Normal Negative [facility] Comment on above: Order Comment: Name Collection Type:: Clean-Voided Midstream Result Comment: PERF ORMED BY: [place] [address] PATHOLOGIST [address] [employer] LARISSA GUERRA M.D. Performed By: #### O BUDS, UA #### [address] Protein,Urine Negative Normal Negative [facility] Comment on above: Order Comment: Name Collection Type:: Clean-Voided Midstream Performed By: #### O BUDS, UA #### [address] Specificy [place],Urine 1.007 Normal 1.001-1.030 [facility] Comment on above: Order Comment: Name Collection Type:: Clean-Voided Midstream Performed By: #### O BUDS, UA #### [address] Urobilinogen,Urine Normal Normal Normal The [facility] Comment on above: Order Comment: Name Collection Type:: Clean-Voided Midstream Performed By: #### O BUDS, UA #### [address] Urine clarity by refractomet ry automatedOrdered By: JUANY OROPEZA on 01-14-2023 Clarity Refractometry automated (U) Clear Clear [facility] Urine glucose measurement by automated test strip (mass/volume)Ordered By: JUANY OROPEZA on 01-14-2023 Glucose Auto test strip (U) [Mass/Vol] Normal mg/dL Normal [facility] Urine hemoglobin detection b y automated test stripOrdered By: JUANY OROPEZA on 01-14-2023 Hemoglobin Auto test strip Ql (U) Negative Negative [facility] Urine leukocyte esterase det ection by automated test stripOrdered By: JUANY OROPEZA on 01-14-2023 Leukocyte esterase Auto test strip Ql (U) Negative Negative [facility] Urine pH measurement by auto mated test stripOrdered By: JUANY OROPEZA on 01-14-2023 pH (U) 8.5 [pH] Normal 5.0-9.0 [facility] Comment on above: Order Comment: Name Collection Type:: Clean-Voided Midstream Performed By: #### O BUDS, UA #### [address] Urobilinogen Auto test strip (U) [Mass/Vol]Ordered By: JUANY OROPEZA on 01-14-2023 Urobilinogen (U) [Mass/Vol] Normal mg/dL Normal [facility] Coding Summaryon 01-12-2023 Coding Summary HTMLBase 64 XumluofrIOn1tBy+PGhlYWQ+P R7WCDKfH42grXOgiY2lN6GLAT lOSywgQVBQTElOSyIgbmFtZT1 kaXNjZXJu IC8+VH2xJGQnLvvhnRPgt3W4j RF8X36fxk6iHCeutXS5AOLiMu Mpmuezu4ydmIl7XDctZsvaMoG t IIEimC94HAB0fJ35Ts54xRJuz DJbv4tdxYo8ZmQsKLZxLVQ1mP abBBxly7YqVUAaR71ndZUhq1I 6 WNMimAckhXKgAlSboLR8kT4tY Kyqqsebz8syhrjpOha3uo77pP Rjm4I2jUJ9S8TsysK2NFFqlMY g JuqnmYOGeA6fimpjc9jozmkhN bIxDLRiQNx1BMn6WUNgsFrgPj CbCO84IQC1CPEmnsFiE9HyAZU s tKkzXiL3v6C5Il1HK1XAQxmwZ 1VNTUFSWTwvdGQ+OM01bn51M9 KhTvfgMra3XINwTPT1cQV9mO8 n CXJpYKgde5L0yUN5C3WtqmPde s1ur5ttAJXeIAzdP46wwYNsn6 W9GEBrlRA6RQUgeFgqOvClrD4 3 Oyc+BLMidXdwj0AlNjcbe6aal 4psuKt7OthtYZLiwzYurXquEP M7t9RxLv0cLECiwIX4cAD9dX1 i XtBtNiP8TBrcF790ZoZrlXYeK nsbV59jZ7QkuOR+YMOvAyr4PG WbdEszEL2dM7LrUKWymewtkIZ m jIeqMK6uGDWoyshgINVkmT4yL MXcS3e3ZcBeGeM0CIrrE4NsXA YntyejRg93hH0tNcYwXmW2LSi u M2AinpE8MFTqsOZxLOnhRNX5D 28kb0A2JALvNIAnUCK7iUA1kD 1hbGlnbjogbGVmdDsgdmVydGl j AMaoKObtJ707QNTwwUsgVsUuG GluZyBEYXRlOiAgMDcvMjcvMj AyMzwvdGQ+IDXgRUQ1hAgaNUF n tCGjPFtxRi5urMlvjWhgMS7sD FNemcrgFHZjyB6mZUQkqHReqN seBK3tRYGnlfemy797QsSlYLK 0 VZIikUKoL6TgdD8fNuYeEIPmJ HLjV1FdaRMaHRisX404HBmlMd V0FEBpsvCbB3SpLQCnuGmoTcD 0 o4V3Rm6Bh3RhfpepL8MjjPTiW eHuHxhtJEv9F7GaNdrttNB+PC 62RHNbHI38LJh4YTN2jYvbWLm i WEQwZ2RrpC3kMdSoWENiRODkW yc+PHRhYmxlIHdpZHRoPScxMD AtKgLtkAuxDU0bZt1gZBUtYIG v nExvtSErZsVpg8dbLHWzUIubR X3heCjwZ5BglBV0LNPhc6p7Ov 78H90uS2EjjYG+LZLipLC3mLO 0 jK3aXfDjWwU3ODctC129EhWma EKgCphru1aht0uymQm1WpK8FU FejhPwhWoyOLH2n1CnCq92N89 s IHdpZHRoPSIxNSUiIHZhbGlnb u1ypQ8eEt4+NXEwhYA6tTR3kC 7vMhMrFqP9AWjyA737AhBpaHP v Ydzzz2ztv2xsjBs9DpLhOCCqm eTrmKckFYY9e0RtYd65S7FgeI yut6XmDbt8vl57oBChm7R2tGV 9 M2YuOAQyyvwheYBsgFtrSS4bT MPziwhdYQMuvV8pDMJmU0f5Zb QdObV0OBfnG8AksjL7LBQozFX g SHRykYXEnV1jwkxcl1jtmnssH gLkZGSqMWg4FJe3NUZhqBkxRr CzKQD9SyH1YVO1qFSqxQ2zyTp n zqlxgQ6hXno+PPL6uKMaaZMRE N8hEtixfZJ+ITCfDON6qDumCJ dyPHTyxF3cAZIhR1d1MrIdEbZ 1 HIvzX4ApkjA7LEUwrGQbTLYzs AZEcE1jgrfgb4jswftnMoQwUK ZhTYr0CPw6DTHtiYkpDeKiYLZ 0 ImP3XNK8aERemJ2hdAznnqixl G9wOyc+TjzxiUiuHIH3EVn0J0 YpQul6NALpiPvdPD0ujYUnFTg u Ky1lxQsxyIhzWE6oTJZalameq 643TaOsb2yhSYVqbNBiQSxmSS V9O57lg3Q9MYMtOIXgVUV0nBV 4 lM7fnJohzinifXGfwMzrkcUbu TnyMFwbEJfhD982YLFvaDduTk IjGOg9T7YrOnt6QNXgaDxrTL3 n hBUnSVnuXm8dhKlheBmeBI3lW RRecilwj366JrNqy4wvKOMzdO KfXLpfONV7N47xx5L5PBDtQNY w EUK5hKJ4cJ0giRyulywruQBfd CqzzfLvkPfqYVstTArvA637WI VmmBewBgFstKg3C4VlEck0CAL z nWdcSZ5kvKJdEXzeEj9wiIxxk JqeSF8iVIIuumpai765AtYyd2 noPVFjuABrISrlIXW5M83xw4G 6 YIHkFNOaYLF0xZN9xE0vcPshn jogbGVmdDsgdmVydGljYWwtYW vjH107UTEnkMcwMgGtaJpebtP g TUvhXDh6Y4LtLhczkZM+PC90Y CJeQS62fVGghJGzc3fghBo9Rf DkKAIzZHL7hFfcYTulx3JdPMT t Y36vrXWsy5B1XPNnwOflnTEqN nCpqMR1vJ4dALmadteqs8sffo mzSldzo2lyyq26nS44N52gPAx p HHPhAMEdMELgJVXlrKjayw4jg G9wIi8+LJGkhEC6hLT0rO1mSO KoWhF9ZKzdI805QdObkANgAso j y8cba5eqpEp0QaI4KWLvpkJjk AviSWI2p6RlSz64V39sDSijTA TgDOAuUDAkQWMniZzkil3zzB2 w Ii8+IZAcgZX3oCW2pR8dAjSpT pR3EHgtG313IzHowMNtXlvwP5 4zZ8XniYW+SDEiBmy8HFSvzLk s SH0haQQlCLbuWj9cGWO6XjMuE uSdVBkzW3HzGIFfxbjrcxxyhW R3BQLwRQSorA02Xo8owEhlOTE w lEBTkT9hvesun0kxawezVdZgE QJmBGh8WVh2MPJkjAqpYiPeHO I0AcU6GNT4nSBjlN8lwKdlgcm g yZ8hK8IaTHHcicokKt35wJ1cP cWgXpO9JLeiCzo+Z8uTC63NXZ GNUOMFRZ7PYPWJDQyUZpiwjEF + FYTqROU9xQjwYTqvIUVgdV6gJ CBzA2d5YcHbXhV7ULoiB8YyHF BbqbbwEx98yB7qMfXlYtB2PVh u V8RalfW4ZMGclVEjTQzaZAS4O 58an4J3PRXxXOScLTV2iZJ0cD 1hbGlnbjogbGVmdDsgdmVydGl j GNzdOMpkD629KVWxqWhrLqMzI gQ6YcF2DAY0U2YiDdn4PXYuzL udDJ8qlXMjJDwhCq4zrEdwqHr g UD3eWVAqajaaBVVptE1yLACrm WVcgHjmJQ5mCZPckovhx687Fr KiBSL3VPDqjXGdQ3SoiR5kKgR j YOQwFIHiI9AcuRAjEFipX499D EesCrK4BOBbpiElI8DjHQDgeG iiKuU5d9N1Jw5iQeEVVYMyqbk v dGQ+NNRzLPZ1aSsqELylCZIhm U0mJUDxG3s3QmNrIuA8MQcmN3 MhPETfxetcLf76sA3rWeUcVxF 1 EMzzX9UcswG8ZHRhwFLeQVcfJ QU5H04dg7O8NZGyUBRpKBT6uF M7pV0wuTgqwmuurNDnbLdvyeE y rLhlRSxoMBirC911HTFkfKtkX kZFTUFMRTwvdGQ+OJOaEWC1sS iuXIumJQSklR6wLUWdQ5b2YnX w YyG8MXfvV9QuHUStjiueRj99y Q1bObTrLjP1PKtcK6LlosB5UT UavYCqKKriQSY7Y89qz1V9UQV w JTImMCL3lJB3vK7qfSzfqrtgo GVmdDsgdmVydGljYWwtYWxpZ2 58PQYjpIiwYp2ZVY61BO24D0U y PjwvdGFibGU+PHRhYmxlIHdpZ WItAPkjHNIkOtMluMjrRO3sCc 9lRFRxNPPrjCsasQFyDdWya7f s PPSmYEbzSG2drTffQ2NjyBC6S PXzh6b0Ea90I95oV0ZowUD+PG JguXO1mLB3wQ7fZnAxPlG4HFq p B206HkZkgEUbXvnfq2lbb1qlm Ot5GsWgBQJrmhFseJbhFEF8z5 MuYo18J43oQPifIMZgCDZbOAV i SRLhoQyhrm6emM9dZs8+PGNvb BV5fCW6qS6jQyQyHoO0PNldU4 89LvXbkHQhHtqyD68oZ1ZqqED + ZFNgDzm5YZTmlKwhBD4nmKImU NbdTv0mYNB8QpPqVzFgDHpgY0 YzZPPhokefpqinqBL8OQKpROL w fG07Vy2qnPsoMd9kKYEzXCG2L CCknBGpD5YffR5zRpBfPFKuGM ZxE4XdsYCiTLdzF519YZmjBeA 7 JQBlmgZtQ2ZvNCTmpWtkJjC1r 4I9Aq7PwAhkyCEfCX0qRpCuHY i0O7UqBsw1AWYawByeDR9zzRP k QMgtUy9aaFyliKapKK8fULSju hhsh495RuDbd7wyQHTqgTJdYN tgLMF4C64sg0W2MGWlDBCiGLM 7 aSB8jR9hwBogkqendSTmbTozo gTbeVbdPCciFBstW522KYPliP ffMdZGGlt0D2JcLjt3WHLcoTg s CI2gkHNtYBisPo7eaElowThhF S1xEKYhsxgmw503TsDuw6ffNS MciQZiTWvkRPK9L38ig9N4IJV w PJTeEJT4wHT2tA9jwHfvpouao GVmdDsgdmVydGljYWwtYWxpZ2 58WXKmpYeiRo1STij2P1TzVcv 0 XPTfdLkeLY8urJOfENyhIb2kl GfupWisMQ8jRRWrcxzuq348Rj Hbc0kzBXGzlNNaCGyuIPV8O91 s x7W5JBBgDXSuWCQ4oTH7oI0cp GlnbjogbGVmdDsgdmVydGljYW nhCObvJ863NOYnyJfnKzCcjEF y OjwvdGQ+UK72gy76Q6QkQzirS wa8NWAySOR6xWQ3lD1zRMAaKO zvm1X8jVJ1W8SywoWody0tr7i s YXB (more content not included)... [facility] Coding Summaryon 01-11-2023 Coding Summary HTMLBase 64 XkxwiqhqTIy1aXv+PGhlYWQ+P T8TOPZyY59nlUDaxF6cT3EPLF lOSywgQVBQTElOSyIgbmFtZT1 kaXNjZXJu IC8+QI2wZNMsZcfslLDjo0E1k RD5K95flk1bJCpljBI7LQOjGs Geyivex3vwqLc4WOdvPzrgPyM t QKXuiQ67KCS6nO99Gz38aLFgd PLtc3drqYd4TyWjKHDiCWL3gD uxLIscu5PtQDTtL78uuTYjd6O 6 MQKgcNoksKDaZhCvmOA9uL4nU Btedksrl5vxrwyhWvd1ch34uY Hpm1S4aSU3R4QzxmO5JNMwbTA g PbbjgQTUuC7qgrjlw6xevpetN xEbQIZiMBj5KWo1BIDzvLyeHe LuZI80TFQ1IRJqawUvY7KhUEB s xQhxVrG8n2N9Un9LF2ZZEgtoR 1VNTUFSWTwvdGQ+DM69pw36C4 FnGempGei0UHCjTAB4uMB7bK1 n FLTdSHeaw9F9nBL0V4DxhyFqc m8is4mvFVXzHKmdD49iyLSvh6 R0CTMxeZR4VMWvuOmzVyOpsQ0 3 Oyc+PZCskCqfr5GaYuzob4cqj 2vvnSc8HiigZWUvzsKdaTqoXM L9z1PiLi6yGTIjhSP4zVM3mS0 i KpAxJaH6ODkjN245FfUjgUQaK xpuD94xP3WnpEO+GYXmBjn6NU ShjEisPS2tF2TlJDMlzhsdlTD m aMunSS8uWHHgqasrDWAjzV1rV SIqC8a4XnRzInN8MUiaL7UeBN PeyjhrSr11jG0qVnMoBfD8OOi u Y8KxtiA6IHSnjPOrCSnaSFW7R 15rd2F2QBCkFDRrZCY9fOK7mJ 1hbGlnbjogbGVmdDsgdmVydGl j KNbtDTgdE092IYRnyAslGiMvQ GluZyBEYXRlOiAgMDcvMjYvMj AyMzwvdGQ+IIOjOZY7hDbmUTG n fYPuIUxqPi2cvMhfcIaaBX6mC KQevctoULLcxP2rKRMrfUTcqE tgYS2mFSVuvicxb452AgEaFDZ 0 JGBjaXUuO1SufS0vGpHbEPWlI BWcE5HdsAEgHBhdA964AJsnWa W4WPBijnHrC8TiMZCvqXatEzU 0 y3N3Bh6Xd5RxcdztU4CspKMlM eDyUizpXHk3L9QoEraxjZO+PC 03AYWiAJ30MBe6UZU9wBnvDNm i UNPdR4KlsF1gSmDbNLPfNBMwT yc+PHRhYmxlIHdpZHRoPScxMD GxYwWemCmgSG8lMu6eJBUpCXT v bXdbsVXtOdZvu9rjGJPbTWliH K0zaHjqP1TozHV7CSVwf3y8Hs 03J82vH8NinUE+ERUncNH7wEX 0 vS1eJoAjJyF7DGeeZ454ViGwn FDuEzjhr7gvu7mkiAy5JuG9II QunxIceUnkZLS6l9RiTy20M53 s IHdpZHRoPSIxNSUiIHZhbGlnb h2joY4pQi4+VCJnsKS5tNJ0xA 2lChEdQpP8KEucC203DfAwzMP v Jocov3zpk2xexHi4NfFbNZHhj qZztNghZJO0q1WdUn36G2PpkT ref1LxYfo3zs99cBAzj0J2uRW 9 U5SuRAQtimbydOTtvYheUB5cT ERkjskyDHQuaP0uUIRuV7i2Ju PpYyV3ZCrtY2IapsA0LQQgrBB g DHSdtCGEiG5zrznbe6zdmdjgA tGtPWRwARu0FOl2XQYmvSytKw YnYDR6PgJ5RXS3iYZtnS1fvKn n vzfwbI3vUdn+JTT8hOUezOUXH U0pDamavWH+WFWuUWE8wWfoZR hfNEYnpD6qRXNtI6c1RaEwHmX 1 ULveF9CiceF1CTHgvXDaGYIhy PEJyB8jyizhv3pnrnwdQwCtBX DdTEe0LFd7DJHkcAkvYgChVKD 0 RoG8IOH9pZAhbY2muDmrmugau G9wOyc+NdiwoGezCWL5RMg4I9 MkJek1IHAwyIkyND7lbTBdBEj u Mq0vjOzoyYxwWA4fFZPgywzqj 688RrPpa2wnMGZqeFCyYKkpDF G6U56rc4Y5UIAmRCKgTUC8bDB 4 xZ2pbAeqixxpxFLheWdtfdZgu RzzAEihZFosD933UGFwqAzkLo UsJKq4M6FeTvp5GHGhjCkvOV0 n hMOlFIonNd9mwFdnzUfjIZ0nT XDlzyfpc644HyMjx9vxRAEgoN YhMOfzBBU4T76mv6F3YXYhLXT w EQD0yTX7jJ8cpDovvepznAEgz YxwkqIwxRhwVSepWDbbD548EJ VgbBayTcWdqJa0X5XlBzf1VUU z wSkvLJ0poHSdYYqnOn8gnUdyq AloKO5sNPTvijytt519GbKau2 gfXDWuuVChTNtnYSB4C54xd3J 6 IYVmEFSnEYY6eXO3dI2vtZqwg jogbGVmdDsgdmVydGljYWwtYW nfR454OCSzcCqaQpAjjUsnhyM g SFrwGPs0W0ApSvrleJB+PC90Y DCpZL25sVZavKIug6nopKz8Cp VwLYViVPJ4nEilIUfyi3TqPAD t J79hfASfg9R2LSFruCozaJHrK jUxpPB7nZ3vJUfyalvtp1oiwp giKocax8ycbp22cH77P96kAMg p IYAvLHJjZCCwXJMcmRlczf6fp G9wIi8+DTAljBT9cZX0hT8fME VmDqT1QMwrC347MpFepKHvCid j r2gdp4ekwRw6IvR6WKQydeBig VedXOU1u6XrIc74L21kOVteHK YpJUIpDBTwDDSevKqwnx9bbX0 w Ii8+DMKhrVF7cTD5hG3hGjVoD oK4OGzdL843JsPnfHTgMcbnF8 0cF7IufDH+XEXeNze0OPAiyAh s RM6cnDYlBBadZu7bODD0OuAtD eEaQZcvS3JmQOMrgusdlvovpD P7CTEbRBDejY63Se1saIhzBQR w jCFJgX8pildkb2bocvpjKsAiR ISuHYz7PNx4WVPomKufJjFzHD J9BfV1BYM6kYCyuY5hhUwbbiu g tG7zA3EmLRJckdfvBk21zD6gH yYfFgU9WSioDgq+S7xXD54TZF VFFTKQNM0RPLZPPSiAGypcgGI + NKZrVBV9rSazJRnqJIGimL5mS BHpD0i6HjQmPyH6CIbrF5ZbFT JtevbxRu64zP8bVxHtDdQ3AQz u D1FysaO3FOVxiIBjGDvmNHN8O 24hr8R3ECVaBLKqXJD0zUP2nW 1hbGlnbjogbGVmdDsgdmVydGl j KPswIXpvF395OTAmsCmhWoSnW kS0ZmJ1EYK9O8ObMla6NPWenR yoLL3csBBzXVfbSx8pdUjcnRv g JO5qEQIlyogjUDTncO4nWYPqk PZdoMjaKB4uQOCgexaah317Mx WtFFG6QUYmgRKfK0LqjL8xHgH j LFEwOROoO1JfoHKuQPnkD968B FxdNdN4MPIytxKfD4LoNVKvwV lePrK2w0Z5Iq9cPqINSHTsdbt v dGQ+QPYoLNO3kMysPSktSIBwf J4bOSAfG4f5VgDdUiN2SDjvG5 UhNSQulmafAk20xA4hLgHzIzP 1 NNubD9MynbF1IWGpfHMhMJbhZ HR3C08rt5V3GOFaFCNjLUG0zI K5kY7snWdvwlqloRTwdDbyfxW y aAwdBWckXStdV480WMAxmYgvP kZFTUFMRTwvdGQ+BEUzYOB3qW jjULkbTSCpaE5kDXVkM0f5LdS w LdC7MNuvR0ZwMLGdloqiPy62u F5mMhEcHvN7HZpkE7FmgzQ5CF EkdVYmLXmvYXR3F85jz2T7DKY w DFRrZTW5aQR6iH7mtMatyabow GVmdDsgdmVydGljYWwtYWxpZ2 30QJExsWqtQo2LYY81EL60K1P y PjwvdGFibGU+PHRhYmxlIHdpZ VZgMBogUOJcChVqlRxuVK1bOh 2jUDVtNNCnsBqygAXuCoNwm0s s ZJHqASzyPW5ztKjxF5BoiOV1B YGlw3t3Oa94L86kZ7ZvaKE+PG QhcXY7fHQ9qL9wQbBtZeY5XXk p L836SzAhdRToRpzar0fjt0btj Sb3MyUpKOGkreRqeWsjDDX1l4 KfUt50H49sOGmpDMClKMEpVDH i BEYrdLduzy5chB4sBw4+PGNvb OT0lSJ0uW0iFdTkJvJ5JLngD3 39RmCmiHAzPzxbR93tA4ChxKQ + BXDsFrj1MFNmwJfuAX7fvODaA OwaOb2yXAI6UrTyQcNfQRwiQ5 WqMBGzvjesnfinbAO9ASCtRFG w nB92Os6pdRcuEt7yJFOaUWW2Q GUcmOHaG3IasH3hLnZeJTPjTO OzF1HrzZRvLJtzT294UMykTkX 7 CTJibuMsP6PrFHPiuSmyHvF1m 1M4Qh7QrDxesVTlWX5dQcJtQI q4V4QpWxz4SORhkGlxHH1dkZU k FKosYz5wlNhhmRocDD8jCLTxf xcjn335KpHrt5jlLLNvkSJcVD uxFTW4H18ao5Y6OUGjMPVpABS 7 dGC8dL7vsYmsoiqhvBUdcOwlv iExxEktBPbdKAgpW849FFMspQ bhWhRGDky0S1NuVmf4BAWdaLj s ZC5cmGDgDZnfKq6vhYsleDmgA P4mCJUdcykha548QyRgu4wsCB GqnWSpWYguUQX5P46rg9F1IUQ w MHXgMMC0cKS5fR9icJhtpogby GVmdDsgdmVydGljYWwtYWxpZ2 45QFFrsKeoWr1IPqk7E2TyYey 0 JRTjcMmqFW3pcJLwKZisDk4se GwnvAoqSP3uNUUxfibbk483Zl Xdk7gyQEEtxQIkIVgtDMP6V72 s t2F0ZLErSKXpJIO0cUZ8nV3no GlnbjogbGVmdDsgdmVydGljYW lbPFkxN072UUIbdTewXiPeqGF y OjwvdGQ+IS44ej16T2EwDgajA uq2CNMfORY0wNQ1xI5bNFUiQD cgp8R9gSH8X0AtbaHzcs5vh2h s YXB (more content not included)... [facility] ED Clinical Summaryon 2022 ED Clinical Summary [facility] Emergency Department [address] [place] [id number] ED Clinical Summary PERSON INFORMATION Name: BARBRA CLAROS Age: 27 Years Sex: FEMALE : 1995 MRN: Acct#: Visit Reason: Ear drainage; Ear pain; RT EAR PAIN/DRAINAGE Arrival: 01/11/2023 07:59:56 Discharge: 01/11/2023 09:01:00 LOS: 000 01:02 Check In: 01/11/2023 07:59:56 Checkout:01/11/2023 09:01:00 Address: [address] [place], [place] [address] PCP: Provider, None PROVIDER INFORMATION Provider Role Assigned Unassigned Anjel Yates MD ED Provider 01/11/2023 08:03:58 Kat Narvaez RN ED Nurse 01/11/2023 08:35:38 VITALS INFORMATION Vital Sign Triage Latest Temperature Tympanic Temperature Temporal Artery Pulse Rate 88 bpm 88 bpm O2 Sat 97 % 97 % Respiratory Rate 18 br/min 18 br/min Blood Pressure /73 mmHg /73 mmHg MEDICAL INFORMATION Medications Given: Allergy Information: Triaminic Allergy; chlorpheniramine/dextrome thorphan/PSE PHYSICIAN DOCUMENTATION DISCHARGE INFORMATION: Discharge Disposition: Home Discharge Location: Home PATIENT EDUCATION INFORMATION Instructions: Follow-Up: With: Address: When: Follow up with primary care provider Within 3 to 5 days With: Address: When: None Provider [address] [place] [address] Within 3 to 5 days DIAGNOSIS: 1:Right otitis externa Patient Understands: Yes - Patient/family/caregiver verbalizes understanding of instructions given Comment: [facility] ED Patient Education Noteon 01-11-2023 ED Patient Education Note Education Materials [facility] ED Patient Summaryon 023 ED Patient Summary [facility] Emergency Department [address] [place] [address] PATIENT DISCHARGE INSTRUCTIONS Patient Information Name: BARBRA CLAROS Age: 27 Years Date of : 1995 Reason For Visit: Ear drainage; Ear pain; RT EAR PAIN/DRAINAGE Arrival Time: 01/11/2023 07:59:56 Primary Care Physician: Provider, None Attending Physician: Anjel Yates MD Comment: Visit Diagnosis: Diagnoses This Visit Ear drainage ([id number]) Ear pain ([id number]) Right otitis externa (H60.91) The Pharmacy at [facility] is open Monday through Monday from 9A to 6P and Monday and Monday from 9A to 5P Prescription Information: If you have been given a prescription for narcotics, seek immediate medical attention if you have any difficulty breathing or any sudden status changes such as confusion and sleepiness. If you or anyone you know is experiencing suicidal thoughts, mental health, alcohol and/or drug addiction problems; contact the [facility] 09/01 Crisis Hotline -text 4hope to [phone]. If you received any narcotics, sedation, or any other medication that causes drowsiness for the next 24 hours, unless otherwise directed: ? Do not drive a car. ? Do not operate machinery such as power tools, lawn mowers, drills, sewing machines, or stoves ? Avoid alcoholic beverages and drugs for allergies, nerves, or sleep ? Do not make important personal or business decisions or sign any legal documents With: Address: When: Follow up with primary care provider Within 3 to 5 days With: Address: When: None Provider [address] [place] [address] Within 3 to 5 days Medication Information: The exam and treatment you received today in the [facility] Emergency Department were for an urgent problem and are not intended as complete care. It is important for you to follow up with a doctor, nurse practitioner, or physician?s employee relations assistant for ongoing care. If your symptoms become worse or you do not improve as expected and you are unable to reach your usual health care provider, you should return to the Emergency Department, we are available 24 hours a day. For those patients who have received Radiology results, the interpretation of your X-ray as given to you by our Emergency Department physician is only a preliminary report. The Radiologist will review your films and if there is a change in the diagnosis you will be notified by phone. Please make sure you have provided a working phone number so we can reach you if necessary. In the event that you had a lab culture while you were a patient in the Emergency Department, you will be notified by phone if there is a need to change your antibiotic. Please make sure you have provided a working phone number so we can reach you if necessary. [facility] Emergency Department has provided you with a complete list of medications post discharge. Please inform your lens mold setter/provider of your visit and for further instruction on these medications. Any specific questions regarding your chronic medications and dosages should be discussed with your primary care physician(s) and/or pharmacist. New Medications [facility] [id number], [address], [place] [id number], [phone] colistin/HC/neomycin/thon zonium otic (Cortisporin-TC otic suspension) 5 Drops Otic 4 times a day. fill ear canal and plug with saturated cotton. Refills: 0. Medications to Continue That Have Not Changed Other Medications lactobacillus acidophilus (Acidophilus Extra Strength oral capsule) 1 cap(s) Oral every day. Refills: 0. multivitamin, ( 19 ([employer]) oral tablet) 1 tab(s) Oral every day. Refills: 0. ondansetron (!-Zofran 4 mg oral tablet) 1 tab(s) Oral Every 6 hours as needed Nausea. Refills: 0. PARoxetine (PARoxetine 20 mg oral tablet) 1 tab(s) Oral every day. Visit Information Allergies: Substance Reaction Symptoms Type Comments chlorpheniramine/dextrome thorphan/PSE Drug Triaminic Allergy Anaphylactic reaction Drug Vital Signs: Vitals and Measurements this Visit (last charted value for your 01/11/2023 visit) Vital Signs This Visit Temperature Temporal: 36.9 DegC Peripheral Pulse Rate: 88 bpm Respiratory Rate: 18 br/min Systolic Blood Pressure: 114 mmHg Diastolic Blood Pressure: 73 mmHg SpO2: 97 % Oxygen Therapy: Room air Measurements This Visit Height/Length Dosin.100 cm Height/Length Estimated: 165.100 cm Weight Dosin.890 kg Weight Estimated: 93.890 kg Problems List: Problem Onset Comments Acute pharyngitis ADHD - Attention deficit disorder with hyperactivity Anxiety Depression 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 Normal [facility] 01-05-2023 Glucose [Mass/Vol] 87 mg/dL Normal <=139 [facility] Comment on above: Performed By: #### [id number] ####[facility] (DEFAULT)[address] [place] [address] Provider Orderson 01-05-2023 Provider Orders [id number] FF [facility] Coding Summaryon 01-04-2023 Coding Summary HTMLBase 64 NgscdfzmRPp3qFw+PGhlYWQ+P W9UGRIiM26otEYdqL4fW2NFEV lOSywgQVBQTElOSyIgbmFtZT1 kaXNjZXJu IC8+JT9oPHXpPhvtuXMzy2M0i CL9K05abx8wOAmysLI0GHYkBg Jwlflzq0vmiSe4ZXwzPoodNpL t LXSgjS85SWX2eR94Fb77yFJum DKkq5hdySr4UdEbKBHlXWE3cT wfAFnfg5BqUEQvG28ssQJkz6F 6 DGRtfCfaqQKzCyUciAF2iB2iW Ewqpevha8vizfngJyo9ty23uX Loi2X5xZE2P4ZgebS2IMFviAL g ObcaeVIUpG1lmjhbg5pkjfevZ oUuUGIqDMk9CGb1MYRxmGvyVx EnFZ83KZA6UPHlyoRpP7RtDII s bSuiHiD7j0K7Ba2ZJ3IJWrxtK 1VNTUFSWTwvdGQ+CG47cc96E5 BaSqnaYnr1KGIzOFZ1uRE5pB2 n MPBzNQxpr5W1vNX5A5GcctQsp b3el8pzHIMuVHozT19xjCTem9 Q6DUUcnGL0MFHhyPgwNbCozT1 3 Oyc+RSAfcVslb4WcCmgzq6uss 8matNi2HsatRVGwdxZimChlZH U7n6SuMd6fAZCrfUH0jTG3vY8 i GgFzGjK7BDjpB719ZuZvoFQoL mwoM73uW7SeqAD+NWEgFgr3DC DrcKvaTJ2uV2KiIIFekuqhlHP m nOqwZW2zKAHoghgyLANijO4rR WZgT9d3DhVdTkP4EIxxX7AgGQ OogcvxVm69eA1yUiVbIpP3RFd u G1CpgmX7OPOdiQBvLVlvDIL5U 05rx0B6GPBcULXyPCH4tFW0hV 1hbGlnbjogbGVmdDsgdmVydGl j LCsyXUqiF921SYXflDayYnKqS GluZyBEYXRlOiAgMDcvMTkvMj AyMzwvdGQ+ZABdYTZ2mOifZIL n cHIfXGaqTe0bvJvfwVfkPF0gB YXfdsdiXQGfuE9bLUXjdNYknI sfKZ5iTRKamfyfh526MpQuZQV 0 GLEljNIcI9FcjY1uDeHlOUXdA XAuT0OzkPFgPAwkX203QGqgPi X5NRIybqXtE3RvHILerEwbTnS 0 f9Q7Wc6Iy7OjaymtG7DfnKZcS gYyCdftDXv2B3QwZlltoXV+PC 18TTMdFN14BPl4PAY7aFixPUh i DPJaM1GsyD4dSkTeDQFpJKTiL yc+PHRhYmxlIHdpZHRoPScxMD RgMmQxyDhqQF7lZp5nUIZnROF v mSmsbVKwUfGvf1vpEUBgUJkdL F5qwVdnT2OfrLM0XTGuv4w4Iu 27S78tK0YvvTQ+EZEmyPV9mIQ 0 mN0nFbKtBtT1VAsmB616XsWjw MOtEacur0bta0glfWn7XaW6KZ NhtaTecMcdUYW8h7OnSf25N86 s IHdpZHRoPSIxNSUiIHZhbGlnb p6jtP6zAy0+LXRorDY9jJY4aX 6cCiGcWbB6QUbjK120VbYvyTF v Mmpef4phc0cgsGw5JfStVCRbs lZrgQzxIKB2s9DqRc38X0EhvY vuq9GkOsd3ev14qQViv6O8aIW 9 B5LaKQNqnkzrpKXjqTfrJP5pJ SWdqqtjLHSxgZ8fVBZxX6x9Dq OkOiF4UDvlG7LdxnP6TKGabXC g YZNbzPPGbS0brekbz2cliuzsX tDdYGZaSXa9XIe2SKSjjLinCz YyREY3LcN2CGB1uILsaI1hgMx n empedR4zZwf+NLV6pRXhvRXBA O1hJaftsHF+PQRdDWH6iKenXZ pqCRPeaT9cNQFnE8s6SbRaUdJ 1 NSsnK4NsnhI9GVIhiIWtNAWmp LCGkJ5fwkqzl5xqlulhSfEtIW XgBFj4SDt1ZGHjkYcwPdNiUMR 0 BwT0YBP2mAHzxP9xlKdtjkxip G9wOyc+GhtpbIftJAB5TGf9C0 LtJcj6DETvjVryGM7irDUcKQz u Jo7wqDitqNiuUJ2cDVDpxbsyo 024NgTex9slRJOsvDKqSNtxPA T9L27ia6T7WGHyGVXbGBL9oBO 4 nW9mtYhyvfkmgNLwzPhzzkEvw TorEUkvNJczP302XLRnkFlxYj WrKSe7X5IbMyg2YJLisEivAV2 n jGVyQGoxMw0mwMziwTrzAX7wR HOxozjlq652JqInv4qfULSjlE XgSHoaDAN7U05fd2O7EMZnLUD w YQN4wFT7vY9diSnizoucfACny NpfjrXprJhrNNhfIKndM590SQ YnqQkdHrOieCs6O0NmFca3WGC z qYcdWK3eyDPzTTwzKp1gyJgqr QlzPO1lBEDfyltba180BcPie2 hkIBZlbMOiNHukQDK8Z54dj1L 6 UGXeZTYqHMK9vCL3iI1tgHexd jogbGVmdDsgdmVydGljYWwtYW uqJ710LERnvPxpCsHhiNhbakR g YIkxORa4C9CmHczzdQN+PC90Y RFxAX82oTHgrZWfj6fjjAx8Mr EfZVXuQQF7hPdwUEvzm5QwKHN t D74woWNju9T2SXWepLwbcIHoK oQkjCA1yM6wFVwjtunzx6gsrz qkZstcb6ncxg25dK93I64fBWp p VUEuPLMmXOQzSYCbzQwxoa7ky G9wIi8+RXZvrSI4jUH1mF2bIX RmJdT6YGdcT076HgEwnCVgEse j n6sea8edaHb1JnS8ETIsabHjr KezYIB4h8UsEz23V72fGBqcCB UoFPWeIMOvVIToeMmntf0fuD4 w Ii8+VBEgsSE4zHP2fC1vYhAkZ qJ8XWdxB192EaObwWCyDummZ0 3xP5SxwNA+EGCxToj6HNJgbCm s OU6qzHQxTFecJg1wVXV9LhSrF rRzZDdlC0BsMIIckhycqrnciF C0VFUvPFTxkR43Cf6yaZpuTJW w iTNCzC3zlvedx3owxcgzIgLdL RRhHOb7MQr5RMHvvBdmFgKjUT S0ZkQ5FFM3qKOxpA0mjVaxllh g lC9xS8TmHGKofgceVq64oS4qY xNhQzF6MDjyWuj+K4dMK86IOF MATBBJAQ9EJVPWVHaWBuoysAS + TKMtZCZ1eVprHQxoKQTyqO4nO FHlR1t3RdCvXnR0ZAhxG6GdYK GkjgjsYi13fR9dXfJuWvQ9CHr u C8BwquS0PDWrzLMaBNdqVPL4H 78ne0V4BZLlLQHbHDI7jPM0aW 1hbGlnbjogbGVmdDsgdmVydGl j YSqdBGycQ195WVOrhOaiVaJdK cJ7ChC0FCO0W2JzTby0UAVqzS saLO9gfUFvTQhaNz7hfHlimSp g RJ0oWTPwzlccJIPiwQ1sDFYfb BIjoLkaSV8lSPDnysqrh259Dm UqRLS3HZSoaBFmF0MeeJ1qJgB j NZLfCTYhL8MqxTCvJCqqC598J CkaAnT3KDUvueSrQ0PcZTOueI qdUlU1i1P1Yq7kZuRCGLOqaws v dGQ+HKNlGFN9xLkmJFffYJYod R9rLFIiO4z8XnEiUfQ5DCykA3 CwBCArfszgKe78sZ1lEvCfZbS 1 CUegB3AymoY0VAUdaZYqGQrnF HH5G02aw9K9BLAnNOVuAXS3oN W0wB6gnXjpagaqbLZvqTvsekO y qGwwKNkuIIvuG180UYBkuTkxC kZFTUFMRTwvdGQ+HNCmZTT8kQ ggOLcaNRJruD1dAKJiM8w0HoJ w NrV1HJjnJ3DoGKEyllirZa99p S4oSuEiGqK3SWaaD1EvtaQ9PH TjnNSvAScjYMI8N78dr0Z5OKC w XUGcVFG6rVT4wG3fiWimdtuah GVmdDsgdmVydGljYWwtYWxpZ2 50JHUqoAzxYa2BOY20QL59W6I y PjwvdGFibGU+PHRhYmxlIHdpZ IIhYYtlEXVtIuOflZniEQ2nPh 5vKSBkGJMtvFhucFLgNrBkk6f s MEUhVEsdBS0pgRrhZ7TvvCQ3C VYul8c5Po56G50sG8UtdTT+PG UwpDB4iZX6oO5xUtXtDjX2PLy p J292UtMkoKDcTvkzg0gzb6kfp Nt2ZeVfRPAatkXjhKsvAZQ8e8 CyJp92K07oQIodTZVzBFIrLVC i KICezBeger8pgH7gNv9+PGNvb MJ4lLT7tL8bXoFrGtO3DSawU8 75QyHkfJPgWvvcM95cU7PnxDT + NMMwAup4LRYslVrwKJ8axVOzK MsvUl3sJKQ4LdYeNrAsAUnlH1 EtPCMfxvuwgolfnEI9SERyZYI w nB38Yb2rjCtwVv0oFCKqXSY9H XEjjLDpZ5DlgM7vVjHlDSZbVT HdH1EiaJJkHZrlL530WAlgTsK 7 VPVxghGxE9IuFADcvVrwGqH5s 5Z1Fp9UvDmyrHKeWH0jYeJlZJ z8R3QzGao9KHMdkNkjXJ6kzWO k PUjfNv3afRjzgOujST2kJUQqd pist920MsRse1wgYZCkuPMnMF fwIVV8X19yc3K8PNXcDBYpBSI 7 nFR0oJ8wuCbxqnmryYCqbDquh lMmeCaiKDkaLIhuD010EVRjdU vjIaDWExj3V6PeToa3CZYhpLr s NB3lnQDkJLgfHq4dlFobgYcfO D6mGXOzgdddu272RfJjx7evDS AznJCfJBmkDXF3W10kr0W0RJM w EHWbMZH0lEV1zE5srCsvqttyb GVmdDsgdmVydGljYWwtYWxpZ2 33RZNqvRokAa9TGul3S0DgErh 0 VWOzsZpyYB8vvCOzHYmnAu8zl YmibDqfBN3xXIWvbcjlz785Bn Gpw7dmCMIvbMYnTHfvOAQ6Y06 s t0B1YRLxCGShWCI3vLG2wP1yr GlnbjogbGVmdDsgdmVydGljYW srITxcR968LMAiaPxeVwJazSC y OjwvdGQ+NB10jp70T7VoGxtgO oj4DWZgPKN1bYZ0rS1qLENiNS kto3L2jJF0W0IqbmChrm6fw4a s YXB (more content not included)... Normal [facility] Amphetamine Screen Ql (U)Ord ered By: Jonathan Monahan on 12-08-2022 Amphetamines Ql (U) Negative Negative [facility] Barbiturates [Presence] in U rine by Screen methodOrdered By: Jonathan Monahna on 12-08-2022 Barbiturates Screen Ql (U) Negative Negative [facility] Benzodiazepines Screen Ql (U )Ordered By: Jonathan Monahan on 12-08-2022 Benzodiazepines Ql (U) Negative Negative [facility] Benzoylecgonine [Presence] i n Urine by Screen methodOrdered By: Jonathan Monahan on 12-08-2022 Benzoylecgonine Screen Ql (U) Negative Negative [facility] Bilirubin Auto test strip Ql (U)Ordered By: Jonathan Moanhan on 12-08-2022 Bilirubin Ql (U) Negative Negative [facility] fibronectinOrdered By: Jonathan Monahan on 12-08-2022 Fibronectin. (Vag fld) [Mass/Vol] Negative Negative [facility] Ketones Auto test strip (U) [Mass/Vol]Ordered By: Jonathan Monahan on 12-08-2022 Ketones (U) [Mass/Vol] Negative Negative [facility] No Panel InformationOrdered By: Jonathan Monahan on 12-08-2022 Membranes Rupture (PAMG-1) Negative Negative [facility] Opiates [Presence] in Urine by Screen methodOrdered By: Jonathan Monahan on 12-08-2022 Opiates Screen Ql (U) Negative Negative [facility] Phencyclidine Screen Ql (U)O rdered By: Jonathan Monahan on 12-08-2022 Phencyclidine Ql (U) Negative Negative [facility] Comment on above: These are unconfirme d results and should not be used for legal purposes. Drug Cut-Off Concentration: AMPH 1000 ng/mL FIONA 200 ng/mL KIMMY 200 ng/mL COCM 300 ng/mL OP 300 ng/mL PCP 25 ng/mL Protein Auto test strip (U) [Mass/Vol]Ordered By: Jonathan Monahan on 12-08-2022 Protein (U) [Mass/Vol] Negative Negative [facility] Urine appearanceOrdered By: Jonathan Monahan on 12-08-2022 Appearance (U) Clear Clear [facility] Urine colorOrdered By: Michaelle Monahan on 12-08-2022 Color (U) Yellow Yellow [facility] Urine glucose measurement by automated test strip (mass/volume)Ordered By: Jonathan Monahan on 12-08-2022 Glucose Auto test strip (U) [Mass/Vol] Normal mg/dL Normal [facility] Urine hemoglobin detection b y automated test stripOrdered By: Jonathan Monahan on 12-08-2022 Hemoglobin Auto test strip Ql (U) Negative Negative [facility] Urine leukocyte esterase det ection by automated test stripOrdered By: Jonathan Monahan on 12-08-2022 Leukocyte esterase Auto test strip Ql (U) Negative Negative [facility] Urine nitrite detection by a utomated test stripOrdered By: Jonathan Monahan on 12-08-2022 Nitrite Auto test strip Ql (U) Negative Negative [facility] Urobilinogen Auto test strip (U) [Mass/Vol]Ordered By: Jonathan Monahan on 12-08-2022 Urobilinogen (U) [Mass/Vol] Normal mg/dL Normal [facility] pH Auto test strip (U)Ordere d By: Jonathan Monahan on 12-08-2022 pH (U) 1.005 [pH] 1.001-1.030 [facility] pH (U) 7.0 [pH] 5.0-9.0 [facility] Amphetamine Screen Ql (U)Ord ered By: Jonathan Monahan on 11-20-2022 Amphetamines Ql (U) Negative Negative [facility] Automated erythrocytes count in urine sediment (number/area)Ordered By: Jonathan Monahan on 11-20-2022 RBC Auto (Urine sed) [#/Area] 1-2 [HPF] 0-4 [facility] Automated leukocytes count i n urine sediment (number/area)Ordered By: Jonathan Monahan on 11-20-2022 WBC Auto (Urine sed) [#/Area] 1-2 [HPF] 0-4 [facility] Barbiturates [Presence] in U rine by Screen methodOrdered By: Jonathan Monahan on 11-20-2022 Barbiturates Screen Ql (U) Negative Negative [facility] Benzodiazepines Screen Ql (U )Ordered By: Jonathan Monahan on 11-20-2022 Benzodiazepines Ql (U) Negative Negative [facility] Benzoylecgonine [Presence] i n Urine by Screen methodOrdered By: Jonathan Monahan on 11-20-2022 Benzoylecgonine Screen Ql (U) Negative Negative [facility] Bilirubin Test strip Ql (U)O rdered By: Jonathan Monahan on 11-20-2022 Bilirubin Ql (U) Negative Negative [facility] Color Auto (U)Ordered By: Hola Monahan on 11-20-2022 Color (U) Yellow Yellow [facility] fibronectinOrdered By: Jonathan Monahan on 11-20-2022 Fibronectin. (Vag fld) [Mass/Vol] Negative Negative [facility] Ketones Auto test strip (U) [Mass/Vol]Ordered By: Jonathan Monahan on 11-20-2022 Ketones (U) [Mass/Vol] Trace Negative [facility] Laboratory - UrinalysisOrder ed By: Jonathan Monahan on 11-20-2022 Hyaline casts LM Ql (Urine sed) 0-8 [LPF] 0-8 [facility] Nitrite Test strip Ql (U)Ord ered By: Jonathan Monahan on 11-20-2022 Nitrite Ql (U) Negative Negative [facility] No Panel InformationOrdered By: Jonathan Monahan on 11-20-2022 Membranes Rupture (PAMG-1) Negative Negative [facility] Opiates [Presence] in Urine by Screen methodOrdered By: Jonathan Monahan on 11-20-2022 Opiates Screen Ql (U) Negative Negative [facility] Phencyclidine Screen Ql (U)O rdered By: Jonathan Monahan on 11-20-2022 Phencyclidine Ql (U) Negative Negative [facility] Comment on above: These are unconfirme d results and should not be used for legal purposes. Drug Cut-Off Concentration: AMPH 1000 ng/mL FIONA 200 ng/mL KIMMY 200 ng/mL COCM 300 ng/mL OP 300 ng/mL PCP 25 ng/mL Protein Auto test strip (U) [Mass/Vol]Ordered By: Jonathan Monahan on 11-20-2022 Protein (U) [Mass/Vol] Trace mg/dL Negative [facility] Specific gravity Auto test s trip (U) [Rel density]Ordered By: Jonathan Monahan on 11-20-2022 Specific gravity (U) [Rel density] 1.016 1.001-1.030 [facility] Squamous epithelial cells de tection in urine sediment by light microscopyOrdered By: Jonathan Monahan on 11-20-2022 Epithelial cells.squamous LM Ql (Urine sed) 1-2 [HPF] 0-2 [facility] Urine bacteria detection by automated methodOrdered By: Jonathan Monahan on 11-20-2022 Bacteria Auto Ql (U) None seen None Seen [facility] Urine clarity by refractomet ry automatedOrdered By: Jonathan Monahan on 11-20-2022 Clarity Refractometry automated (U) Clear Clear [facility] Urine glucose measurement by automated test strip (mass/volume)Ordered By: Jonathan Monahan on 11-20-2022 Glucose Auto test strip (U) [Mass/Vol] Normal mg/dL Normal [facility] Urine hemoglobin detection b y automated test stripOrdered By: Jonathan Monahan on 11-20-2022 Hemoglobin Auto test strip Ql (U) Negative Negative [facility] Urine leukocyte esterase det ection by automated test stripOrdered By: Jonathan Monahan on 11-20-2022 Leukocyte esterase Auto test strip Ql (U) Negative Negative [facility] Urobilinogen Auto test strip (U) [Mass/Vol]Ordered By: Jonathan Monahan on 11-20-2022 Urobilinogen (U) [Mass/Vol] Normal mg/dL Normal [facility] pH Auto test strip (U)Ordere d By: Jonathan Monahan on 11-20-2022 pH (U) 5.5 [pH] 5.0-9.0 [facility] Amphetamine Screen Ql (U)Ord ered By: JUANY OROPEZA on 11-03-2022 Amphetamines Ql (U) Negative Negative [facility] Barbiturates [Presence] in U rine by Screen methodOrdered By: JUANY OROPEZA on 11-03-2022 Barbiturates Screen Ql (U) Negative Negative [facility] Benzodiazepines Screen Ql (U )Ordered By: JUANY OROPEZA on 11-03-2022 Benzodiazepines Ql (U) Negative Negative [facility] Benzoylecgonine [Presence] i n Urine by Screen methodOrdered By: JUANY OROPEZA on 11-03-2022 Benzoylecgonine Screen Ql (U) Negative Negative [facility] Bilirubin Test strip Ql (U)O rdered By: JUANY OROPEZA on 11-03-2022 Bilirubin Ql (U) Negative Negative [facility] Color Auto (U)Ordered By: LEIDA OROPEZA on 11-03-2022 Color (U) Yellow Yellow [facility] Ketones Auto test strip (U) [Mass/Vol]Ordered By: JUANY OROPEZA on 11-03-2022 Ketones (U) [Mass/Vol] Negative Negative [facility] Nitrite Test strip Ql (U)Ord ered By: JUANY OROPEZA on 11-03-2022 Nitrite Ql (U) Negative Negative [facility] No Panel InformationOrdered By: JUANY OROPEZA on 11-03-2022 Membranes Rupture (PAMG-1) Negative Negative [facility] Opiates [Presence] in Urine by Screen methodOrdered By: JUANY OROPEZA on 11-03-2022 Opiates Screen Ql (U) Negative Negative [facility] Phencyclidine Screen Ql (U)O rdered By: JUANY OROPEZA on 11-03-2022 Phencyclidine Ql (U) Negative Negative [facility] Comment on above: These are unconfirme d results and should not be used for legal purposes. Drug Cut-Off Concentration: AMPH 1000 ng/mL FIONA 200 ng/mL KIMMY 200 ng/mL COCM 300 ng/mL OP 300 ng/mL PCP 25 ng/mL Protein Auto test strip (U) [Mass/Vol]Ordered By: JUANY OROPEZA on 11-03-2022 Protein (U) [Mass/Vol] Negative Negative [facility] Specific gravity Auto test s trip (U) [Rel density]Ordered By: JUANY OROPEZA on 11-03-2022 Specific gravity (U) [Rel density] 1.013 1.001-1.030 [facility] Urine clarity by refractomet ry automatedOrdered By: JUANY OROPEZA on 11-03-2022 Clarity Refractometry automated (U) Clear Clear [facility] Urine glucose measurement by automated test strip (mass/volume)Ordered By: JUANY OROPEZA on 11-03-2022 Glucose Auto test strip (U) [Mass/Vol] Normal mg/dL Normal [facility] Urine hemoglobin detection b y automated test stripOrdered By: JUANY OROPEZA on 11-03-2022 Hemoglobin Auto test strip Ql (U) Negative Negative [facility] Urine leukocyte esterase det ection by automated test stripOrdered By: JUANY OROPEZA on 11-03-2022 Leukocyte esterase Auto test strip Ql (U) Negative Negative [facility] Urobilinogen Auto test strip (U) [Mass/Vol]Ordered By: JUANY OROPEZA on 11-03-2022 Urobilinogen (U) [Mass/Vol] Normal mg/dL Normal [facility] pH Auto test strip (U)Ordere d By: JUANY OROPEZA on 11-03-2022 pH (U) 7.0 [pH] 5.0-9.0 [facility] Vital Signs Date Time Vital Sign Value Performing Clinician Facility 09-11-2024 13:23-0400 Body mass index (BMI) [Ratio] 24.75 kg/m2 Ar Gurrola MD Work Phone: [facility] 09-11-2024 13:23-0400 Body weight 68.49 kg Ar Gurrola MD Work Phone: [facility] 09-11-2024 13:23-0400 Diastolic blood pressure 78 mm[Hg] Ar Gurrola MD Work Phone: [facility] 09-11-2024 13:23-0400 Systolic blood pressure 124 mm[Hg] Ar Gurrola MD Work Phone: [facility] 07-22-2024 12:36-0500 Body height 160.02 cm [facility] 07-22-2024 12:36-0500 Body mass index (BMI) [Ratio] 19.5 kg/m2 [facility] 07-22-2024 12:36-0500 Body temperature 97.9 [degF] [facility] 07-22-2024 12:36-0500 Body weight 50.12 kg [facility] 07-22-2024 12:36-0500 Diastolic blood pressure 71 mm[Hg] [facility] 07-22-2024 12:36-0500 Heart rate 76 /min [facility] 07-22-2024 12:36-0500 Respiratory rate 17 /min [facility] 07-22-2024 12:36-0500 SaO2% (BldA) [Mass fraction] 97 % [facility] 07-22-2024 12:36-0500 Systolic blood pressure 121 mm[Hg] [facility] 07-10-2024 14:08-0500 Body mass index (BMI) [Ratio] 25.56 kg/m2 Ar Gurrola MD Work Phone: [facility] 07-10-2024 14:08-0500 Body weight 70.76 kg Ar Gurrola MD Work Phone: [facility] 07-10-2024 14:08-0500 Diastolic blood pressure 78 mm[Hg] Ar Gurrola MD Work Phone: [facility] 07-10-2024 14:08-0500 Systolic blood pressure 118 mm[Hg] Ar Gurrola MD Work Phone: [facility] 04-16-2024 07:32-0400 Body temperature 97.39 [degF] [facility] 04-16-2024 07:32-0400 Diastolic blood pressure 63 mm[Hg] Crist[facility] Singh [facility] 04-16-2024 07:32-0400 Heart rate 67 /min Cristiano Singh MD Work Phone: [email or web address] 04-16-2024 07:32-0400 Respiratory rate 16 /min Cristiano Singh MD Work Phone: [email or web address] 04-16-2024 07:32-0400 SaO2% (BldA) [Mass fraction] 100 % Cristiano Singh MD [facility] 04-16-2024 07:32-0400 Systolic blood pressure 111 mm[Hg] Cristiano Singh MD [facility] 04-16-2024 03:28-0400 Body mass index (BMI) [Ratio] 28.27 kg/m2 Cristiano Singh MD Work Phone: [employer] 04-16-2024 03:28-0400 Body weight 72.4 kg Cristiano Singh MD Work Phone: [email or web address] 04-11-2024 06:20-0400 Body height 160 cm Cristiano Singh MD Work Phone: [facility] [employer] 04-09-2024 10:44-0400 Diastolic blood pressure 66 mm[Hg] Naomi Benito DO Work Phone: [facility] [employer] 04-09-2024 10:44-0400 Systolic blood pressure 107 mm[Hg] Naomi Mondragonis DO Work Phone: [facility] [employer] 04-09-2024 10:42-0400 Body mass index (BMI) [Ratio] 27.1 kg/m2 Naomi Mondragonis DO Work Phone: [facility] [employer] 04-09-2024 10:42-0400 Body temperature 98.01 [degF] Naomi Mondragonis DO Work Phone: [facility] [employer] 04-09-2024 10:42-0400 Body weight 69.4 kg Naomi Mondragonis DO Work Phone: [facility] [employer] 04-09-2024 10:42-0400 Heart rate 92 /min Naomi Thong DO Work Phone: [facility] [employer] 04-09-2024 10:42-0400 Respiratory rate 16 /min Naomi Benito DO Work Phone: [facility] [employer] 04-09-2024 10:42-0400 SaO2% (BldA) [Mass fraction] 100 % Naomi Benito DO Work Phone: [facility] [employer] 04-02-2024 14:15-0400 Diastolic blood pressure 49 mm[Hg] Naomi Thong DO Work Phone: [facility] [employer] 04-02-2024 14:15-0400 SaO2% (BldA) [Mass fraction] 99 % Naomi Benito DO Work Phone: [facility] [employer] 04-02-2024 14:15-0400 Systolic blood pressure 101 mm[Hg] Naomi Thong DO Work Phone: [facility] [employer] 04-02-2024 13:30-0400 Heart rate 51 /min Naomi Benito DO Work Phone: [facility] [employer] 04-02-2024 13:30-0400 Respiratory rate 16 /min Naomi Benito DO Work Phone: [email or web address] 04-02-2024 09:13-0400 Body mass index (BMI) [Ratio] 27.28 kg/m2 Naomi Benito DO Work Phone: [facility] 04-02-2024 09:13-0400 Body temperature 97.9 [degF] Naomi Benito DO Work Phone: [facility] [employer] 04-02-2024 09:13-0400 Body weight 69.85 kg Naomi Benito DO Work Phone: [facility] 03-17-2024 12:14-0400 Diastolic blood pressure 84 mm[Hg] Prudence Wong MD Work Phone: [facility] [employer] [facility] 03-17-2024 12:14-0400 SaO2% (BldA) [Mass fraction] 100 % Prudence Wong MD Work Phone: [facility] [employer] [facility] 03-17-2024 12:14-0400 Systolic blood pressure 125 mm[Hg] Prudence Wong MD Work Phone: [facility] 03-17-2024 10:10-0400 Body temperature 98.1 [degF] Prudence Wong MD Work Phone: [facility] 03-17-2024 10:10-0400 Heart rate 102 /min Prudence Wong MD Work Phone: [email or web address] 03-17-2024 10:10-0400 Respiratory rate 16 /min Prudence Wong MD Work Phone: [facility] [employer] [facility] 02-15-2024 14:26-0400 Body height 160 cm [facility] 02-15-2024 14:26-0400 Body mass index (BMI) [Ratio] 28.54 kg/m2 [facility] 02-15-2024 14:26-0400 Body weight 73.07 kg [facility] 02-15-2024 14:26-0400 Diastolic blood pressure 70 mm[Hg] [facility] 02-15-2024 14:26-0400 Systolic blood pressure 128 mm[Hg] [facility] 02-07-2024 15:50-0400 Diastolic blood pressure 76 mm[Hg] Lauryn Ryanuessler CLINICAL QUALITY MANAGER - [employer] [place] Work Phone: [facility] [employer] 02-07-2024 15:50-0400 Heart rate 64 /min Laurynkimberly RyanReina CLINICAL QUALITY MANAGER - [facility] Work Phone: [facility] [employer] 02-07-2024 15:50-0400 SaO2% (BldA) [Mass fraction] 98 % Lauryn Ryanuessler CLINICAL QUALITY MANAGER - [facility] Work Phone: [facility] [employer] 02-07-2024 15:50-0400 Systolic blood pressure 126 mm[Hg] Lauryn Reina CLINICAL QUALITY MANAGER - [employer] [place] Work Phone: [facility] [employer] 02-07-2024 10:55-0400 Body height 160 cm Lauryn Reina CLINICAL QUALITY MANAGER - [facility] Work Phone: [facility] [employer] 02-07-2024 10:55-0400 Body mass index (BMI) [Ratio] 28.34 kg/m2 Lauryn Ryanuessler CLINICAL QUALITY MANAGER - [employer] [place] Work Phone: [facility] [employer] 02-07-2024 10:55-0400 Body temperature 98.71 [degF] Lauryn Reina CLINICAL QUALITY MANAGER - [facility] Work Phone: [facility] [employer] 02-07-2024 10:55-0400 Body weight 72.58 kg Lauryn Reina [facility] Work Phone: [facility] [employer] 02-07-2024 10:55-0400 Respiratory rate 16 /min Lauryn Reina CLINICAL QUALITY MANAGER - [employer] [place] Work Phone: [employer] 02-03-2024 20:38-0400 Body height 160 cm Ariana Daigle DO Work Phone: [facility] [employer] 02-03-2024 20:38-0400 Body mass index (BMI) [Ratio] 28.7 kg/m2 Ariana Daigle DO Work Phone: [facility] [employer] 02-03-2024 20:38-0400 Body temperature 98.1 [degF] Ariana Daigle DO Work Phone: [facility] [employer] 02-03-2024 20:38-0400 Body weight 73.48 kg Ariana Daigle DO Work Phone: [facility] [employer] 02-03-2024 20:38-0400 Diastolic blood pressure 70 mm[Hg] Ariana Balletserosbal DO Work Phone: [facility] [employer] 02-03-2024 20:38-0400 Heart rate 84 /min Ariana Daigle DO Work Phone: [facility] [employer] 02-03-2024 20:38-0400 Respiratory rate 16 /min Ariana Ballesterosbal DO Work Phone: [facility] [employer] 02-03-2024 20:38-0400 SaO2% (BldA) [Mass fraction] 99 % Ariana Ballesterosbal DO Work Phone: [facility] [employer] 02-03-2024 20:38-0400 Systolic blood pressure 116 mm[Hg] Ariana Daigle DO Work Phone: [facility] [employer] 01-22-2024 14:41-0400 Body mass index (BMI) [Ratio] 28.86 kg/m2 [facility] 4yr [facility] 01-22-2024 14:41-0400 Body temperature 98.71 [degF] [facility]yr [facility] 01-22-2024 14:41-0400 Body weight 73.89 kg [facility] 4yr [facility] 01-22-2024 14:41-0400 Diastolic blood pressure 58 mm[Hg] [facility]yr [facility] 01-22-2024 14:41-0400 Systolic blood pressure 102 mm[Hg] [facility] 4yr [facility] 01-08-2024 14:52-0400 Heart rate 88 /min PHYSICIAN NO [facility] 01-08-2024 14:52-0400 Respiratory rate 16 /min PHYSICIAN NO [facility] 01-08-2024 14:52-0400 SaO2% (BldA) [Mass fraction] 97 % PHYSICIAN NO [facility] 01-08-2024 12:38-0400 Body height 160.02 cm PHYSICIAN NO [facility] 01-08-2024 12:38-0400 Body temperature 99.8 [degF] PHYSICIAN NO [facility] 01-08-2024 12:38-0400 Body weight 73 kg PHYSICIAN NO [facility] 01-08-2024 12:38-0400 Diastolic blood pressure 72 mm[Hg] PHYSICIAN NO [facility] 01-08-2024 12:38-0400 Systolic blood pressure 118 mm[Hg] PHYSICIAN NO [facility] 11-20-2023 16:30-0400 Diastolic blood pressure 65 mm[Hg] Mickiegeorgina Pecky La DO Work Phone: [facility] 11-20-2023 16:30-0400 Heart rate 64 /min Mickiegeorgina Pecky La DO Work Phone: [facility] 11-20-2023 16:30-0400 Respiratory rate 20 /min Mickiegeorgina Pecky La DO Work Phone: [facility] 11-20-2023 16:30-0400 SaO2% (BldA) [Mass fraction] 99 % Mickiegeorgina Pecky La DO Work Phone: [facility] 11-20-2023 16:30-0400 Systolic blood pressure 120 mm[Hg] Mickie Radha La DO Work Phone: [facility] 11-20-2023 11:58-0400 Body temperature 97.2 [degF] Mickiegeorgina Pecky La DO Work Phone: [employer] 11-20-2023 11:46-0400 Body height 160 cm Mickie La DO Work Phone: [facility] [employer] 11-20-2023 11:46-0400 Body mass index (BMI) [Ratio] 30.01 kg/m2 Mickie Hallg DO Work Phone: [facility] [employer] 11-20-2023 11:46-0400 Body weight 76.84 kg Mickie aL DO Work Phone: [facility] [employer] 08-15-2023 20:57-0500 Heart rate 90 /min Sage Andes DO Work Phone: [facility] [employer] 08-15-2023 20:57-0500 Respiratory rate 18 /min Sage Andes DO Work Phone: [facility] [employer] 08-15-2023 20:57-0500 SaO2% (BldA) [Mass fraction] 97 % Sage Andes DO Work Phone: [facility] [employer] 08-15-2023 20:42-0500 Diastolic blood pressure 50 mm[Hg] Sage Andes DO Work Phone: [facility] [employer] 08-15-2023 20:42-0500 Systolic blood pressure 108 mm[Hg] Sage Andes DO Work Phone: [facility] [employer] 08-15-2023 19:40-0500 Body height 160 cm Sage Andes DO Work Phone: [facility] [employer] 08-15-2023 19:40-0500 Body mass index (BMI) [Ratio] 30.11 kg/m2 Sage Andes DO Work Phone: [facility] [employer] 08-15-2023 19:40-0500 Body temperature 98.91 [degF] Sage Andes DO Work Phone: [facility] [employer] 08-15-2023 19:40-0500 Body weight 77.11 kg Sage Andes DO Work Phone: [employer] 07-25-2023 10:50-0500 Diastolic blood pressure 61 mm[Hg] Kisha Rangel MD Work Phone: [facility] [employer] 07-25-2023 10:50-0500 Heart rate 96 /min Kisha Rangel MD Work Phone: [facility] [employer] 07-25-2023 10:50-0500 Respiratory rate 18 /min Kisha Rangel MD Work Phone: [employer] [facility] 07-25-2023 10:50-0500 SaO2% (BldA) [Mass fraction] 97 % Kisha Rangel MD Work Phone: [employer] 07-25-2023 10:50-0500 Systolic blood pressure 104 mm[Hg] Kisha Rangel MD Work Phone: [employer] 07-25-2023 09:45-0500 Body temperature 98.01 [degF] Kisha Rangel MD Work Phone: [employer] 07-25-2023 08:21-0500 Body height 160 cm Kisha Rangel MD Work Phone: [employer] 07-25-2023 08:21-0500 Body mass index (BMI) [Ratio] 33.55 kg/m2 Kisha Rangel MD Work Phone: [facility] [employer] 07-25-2023 08:21-0500 Body weight 85.91 kg Kisha Rangel MD Work Phone: [facility] [employer] 02-27-2023 08:45-0400 Body temperature 98.2 [degF] PHYSICIAN NO [facility] 02-27-2023 08:45-0400 Diastolic blood pressure 83 mm[Hg] PHYSICIAN NO [facility] 02-27-2023 08:45-0400 Heart rate 75 /min PHYSICIAN NO [facility] 02-27-2023 08:45-0400 Respiratory rate 18 /min PHYSICIAN NO [facility] 02-27-2023 08:45-0400 SaO2% (BldA) [Mass fraction] 98 % PHYSICIAN NO [facility] 02-27-2023 08:45-0400 Systolic blood pressure 119 mm[Hg] PHYSICIAN NO [facility] 02-26-2023 20:35-0400 Body weight 92.98 kg PHYSICIAN NO [facility] 02-26-2023 17:40-0400 Body height 160.02 cm PHYSICIAN NO [facility] 02-25-2023 18:28-0400 Respiratory rate 18 /min PHYSICIAN NO [facility] 02-25-2023 18:20-0400 Diastolic blood pressure 50 mm[Hg] PHYSICIAN NO [facility] 02-25-2023 18:20-0400 Heart rate 82 /min PHYSICIAN NO [facility] 02-25-2023 18:20-0400 Systolic blood pressure 91 mm[Hg] PHYSICIAN NO [facility] 02-25-2023 16:00-0400 Body height 160.02 cm PHYSICIAN NO [facility] 02-25-2023 16:00-0400 Body temperature 96.4 [degF] PHYSICIAN NO [facility] 02-25-2023 16:00-0400 Body weight 92.98 kg PHYSICIAN NO [facility] 02-22-2023 17:00-0400 Respiratory rate 20 /min PHYSICIAN NO [facility] 02-22-2023 15:30-0400 SaO2% (BldA) [Mass fraction] 98 % PHYSICIAN NO [facility] 02-22-2023 15:06-0400 Body height 160.02 cm PHYSICIAN NO [facility] 02-22-2023 15:06-0400 Body weight 92.98 kg PHYSICIAN NO [facility] 02-22-2023 14:44-0400 Body temperature 97.7 [degF] PHYSICIAN NO [facility] 02-22-2023 14:42-0400 Diastolic blood pressure 73 mm[Hg] PHYSICIAN NO [facility] 02-22-2023 14:42-0400 Heart rate 104 /min PHYSICIAN NO [facility] 02-22-2023 14:42-0400 Systolic blood pressure 112 mm[Hg] PHYSICIAN NO [facility] 02-19-2023 14:04-0400 Respiratory rate 18 /min PHYSICIAN NO [facility] 02-19-2023 12:16-0400 Body temperature 97.2 [degF] PHYSICIAN NO [facility] 02-19-2023 11:36-0400 SaO2% (BldA) [Mass fraction] 97 % PHYSICIAN NO [facility] 02-19-2023 11:31-0400 Body height 160.02 cm PHYSICIAN NO [facility] 02-19-2023 11:31-0400 Body weight 92.98 kg PHYSICIAN NO [facility] 02-19-2023 11:28-0400 Diastolic blood pressure 74 mm[Hg] PHYSICIAN NO [facility] 02-19-2023 11:28-0400 Heart rate 110 /min PHYSICIAN NO [facility] 02-19-2023 11:28-0400 Systolic blood pressure 115 mm[Hg] PHYSICIAN NO [facility] 02-17-2023 19:23-0400 Respiratory rate 16 /min PHYSICIAN NO [facility] 02-17-2023 18:02-0400 Diastolic blood pressure 68 mm[Hg] PHYSICIAN NO [facility] 02-17-2023 18:02-0400 Heart rate 99 /min PHYSICIAN NO [facility] 02-17-2023 18:02-0400 Systolic blood pressure 108 mm[Hg] PHYSICIAN NO [facility] 02-17-2023 17:58-0400 Body height 160.02 cm PHYSICIAN NO [facility] 02-17-2023 17:58-0400 Body weight 92.98 kg PHYSICIAN NO [facility] 02-07-2023 17:30-0400 Respiratory rate 16 /min PHYSICIAN NO [facility] 02-07-2023 16:28-0400 SaO2% (BldA) [Mass fraction] 97 % PHYSICIAN NO [facility] 02-07-2023 16:25-0400 Body height 160.02 cm PHYSICIAN NO [facility] 02-07-2023 16:25-0400 Body weight 92.98 kg PHYSICIAN NO [facility] 02-07-2023 16:23-0400 Body temperature 97 [degF] PHYSICIAN NO [facility] 02-07-2023 16:23-0400 Diastolic blood pressure 72 mm[Hg] PHYSICIAN NO [facility] 02-07-2023 16:23-0400 Heart rate 94 /min PHYSICIAN NO [facility] 02-07-2023 16:23-0400 Systolic blood pressure 109 mm[Hg] PHYSICIAN NO [facility] 01-26-2023 23:47-0400 Respiratory rate 16 /min PHYSICIAN NO [facility] 01-26-2023 22:37-0400 Body height 160.02 cm PHYSICIAN NO [facility] 01-26-2023 22:37-0400 Body weight 93.44 kg PHYSICIAN NO [facility] 01-26-2023 22:37-0400 Diastolic blood pressure 51 mm[Hg] PHYSICIAN NO [facility] 01-26-2023 22:37-0400 Heart rate 91 /min PHYSICIAN NO [facility] 01-26-2023 22:37-0400 Systolic blood pressure 100 mm[Hg] PHYSICIAN NO [facility] 01-26-2023 22:36-0400 SaO2% (BldA) [Mass fraction] 97 % PHYSICIAN NO [facility] 01-26-2023 22:35-0400 Body temperature 96.8 [degF] PHYSICIAN NO [facility] 01-24-2023 16:44-0400 Respiratory rate 16 /min PHYSICIAN NO [facility] 01-24-2023 16:19-0400 Body temperature 97.5 [degF] PHYSICIAN NO [facility] 01-24-2023 16:19-0400 Diastolic blood pressure 56 mm[Hg] PHYSICIAN NO [facility] 01-24-2023 16:19-0400 Heart rate 95 /min PHYSICIAN NO [facility] 01-24-2023 16:19-0400 SaO2% (BldA) [Mass fraction] 98 % PHYSICIAN NO [facility] 01-24-2023 16:19-0400 Systolic blood pressure 99 mm[Hg] PHYSICIAN NO [facility] 01-24-2023 15:36-0400 Body height 160.02 cm PHYSICIAN NO [facility] 01-24-2023 15:36-0400 Body weight 93.44 kg PHYSICIAN NO [facility] 01-14-2023 13:12-0400 Diastolic blood pressure 62 mm[Hg] PHYSICIAN NO [facility] 01-14-2023 13:12-0400 Heart rate 82 /min PHYSICIAN NO [facility] 01-14-2023 13:12-0400 Respiratory rate 16 /min PHYSICIAN NO [facility] 01-14-2023 13:12-0400 Systolic blood pressure 109 mm[Hg] PHYSICIAN NO [facility] 01-14-2023 10:17-0400 Body height 160.02 cm PHYSICIAN NO [facility] 01-14-2023 10:17-0400 Body weight 92.53 kg PHYSICIAN NO [facility] 01-14-2023 10:15-0400 Body temperature 97.2 [degF] PHYSICIAN NO [facility] 01-14-2023 10:15-0400 SaO2% (BldA) [Mass fraction] 99 % PHYSICIAN NO [facility] 12-08-2022 13:30-0400 Respiratory rate 16 /min PHYSICIAN NO [facility] 12-08-2022 13:24-0400 Diastolic blood pressure 66 mm[Hg] PHYSICIAN NO [facility] 12-08-2022 13:24-0400 Heart rate 85 /min PHYSICIAN NO [facility] 12-08-2022 13:24-0400 Systolic blood pressure 118 mm[Hg] PHYSICIAN NO [facility] 12-08-2022 11:21-0400 Body height 152.4 cm PHYSICIAN NO [facility] 12-08-2022 11:21-0400 Body weight 92.07 kg PHYSICIAN NO [facility] 12-08-2022 11:09-0400 Body temperature 97.3 [degF] PHYSICIAN NO [facility] 11-20-2022 14:48-0400 Body temperature 97.5 [degF] PHYSICIAN NO [facility] 11-20-2022 14:48-0400 Diastolic blood pressure 65 mm[Hg] PHYSICIAN NO [facility] 11-20-2022 14:48-0400 Heart rate 85 /min PHYSICIAN NO [facility] 11-20-2022 14:48-0400 Respiratory rate 16 /min PHYSICIAN NO [facility] 11-20-2022 14:48-0400 SaO2% (BldA) [Mass fraction] 98 % PHYSICIAN NO [facility] 11-20-2022 14:48-0400 Systolic blood pressure 120 mm[Hg] PHYSICIAN NO [facility] 11-20-2022 12:40-0400 Body height 165.1 cm PHYSICIAN NO [facility] 11-20-2022 12:40-0400 Body weight 90.71 kg PHYSICIAN NO [facility] 11-03-2022 11:30-0400 Respiratory rate 18 /min PHYSICIAN NO [facility] 11-03-2022 09:54-0400 Diastolic blood pressure 75 mm[Hg] PHYSICIAN NO [facility] 11-03-2022 09:54-0400 Heart rate 83 /min PHYSICIAN NO [facility] 11-03-2022 09:54-0400 Systolic blood pressure 131 mm[Hg] PHYSICIAN NO [facility] 11-03-2022 09:51-0400 SaO2% (BldA) [Mass fraction] 98 % PHYSICIAN NO [facility] 11-03-2022 09:35-0400 Body temperature 97.7 [degF] PHYSICIAN NO [facility] 11-03-2022 09:25-0400 Body height 152.4 cm PHYSICIAN NO [facility] 11-03-2022 09:25-0400 Body weight 93.44 kg PHYSICIAN NO [facility] 04-26-2022 10:45-0500 Body height 162.56 cm Denzel Thomas Other [facility] Other 04-26-2022 10:45-0500 Body mass index (BMI) [Ratio] 34.84 kg/m2 Denzel Thomas Other [facility] Other 04-26-2022 10:45-0500 Body weight 92.08 kg Denzel Thomas Other [facility] Other 04-26-2022 10:45-0500 Diastolic blood pressure 86 mm[Hg] Denzel Thomas Other [facility] Other 04-26-2022 10:45-0500 Systolic blood pressure 123 mm[Hg] Denzel Thomas Other [facility] Other Encounters Encounter Date Encounter Type Care Provider Facility Start: 09-17-2024 End: 09-17-2024 Bamboo flowsheet Ar Gurrola MD Work Phone: [facility] Start: 09-17-2024 End: 09-17-2024 Bamboo flowsheet Ar Gurrola MD Work Phone: [facility] Start: 09-17-2024 End: 09-17-2024 ambulatory AR GURROLA Not Available Start: 09-17-2024 End: 09-17-2024 Patient encounter procedure Ar Gurrola MD Work Phone: [facility] Comment on above: Abdominal pain in fe male (Primary Dx); Pelvic pain in female Start: 09-16-2024 End: 09-16-2024 Emergency department patient visit NO PCP NO PCP [facility] Start: 09-12-2024 End: 09-12-2024 ambulatory AR GURROLA Not Available Start: 09-12-2024 End: 09-12-2024 Patient encounter procedure Ar Gurrola MD Work Phone: [facility] Comment on above: Abdominal pain in fe male (Primary Dx) Start: 09-11-2024 End: 09-11-2024 Bamboo flowsheet Ar Gurrola MD Work Phone: [facility] Start: 09-11-2024 End: 09-11-2024 Bamboo flowsheet Ar Gurrola MD Work Phone: [facility] Start: 09-11-2024 End: 09-11-2024 Office outpatient visit 25 minutes Ar Gurrola MD Work Phone: [facility] Comment on above: Abdominal pain in fe male (Primary Dx) Start: 09-11-2024 End: 09-11-2024 ambulatory AR GURROLA Not Available Start: 07-30-2024 End: 07-30-2024 Telephone encounter Ar Gurrola MD Work Phone: [facility] Start: 07-22-2024 End: 07-22-2024 ambulatory [facility] Work Phone: Start: 07-22-2024 End: 07-22-2024 Patient encounter procedure [facility] Physician [facility] Work Phone: Start: 07-10-2024 End: 07-10-2024 Office outpatient visit 25 minutes Ar Gurrola MD Work Phone: [facility] Comment on above: Right lower quadrant pain (Primary Dx); Pelvic pain in female; Right ovarian cyst Start: 07-10-2024 End: 07-10-2024 Bamboo flowskeily Gurrola MD Work Phone: [facility] Start: 07-10-2024 End: 07-10-2024 Bamboo flowskeily Gurrola MD Work Phone: [facility] Start: 07-10-2024 End: 07-10-2024 ambulatory AR Alexandre GALILEO Not Available Start: 04-10-2024 End: 04-16-2024 Evaluation and management of inpatient Cristiano Singh MD Work Phone: [facility] Comment on above: Pneumoperitoneum (Pr imary Dx); Perforated diverticulum; Peritoneal cavity free air Start: 04-09-2024 End: 04-09-2024 Emergency department patient visit Naomi Benito DO Work Phone: [facility] Comment on above: Right ovarian cyst ( Primary Dx) Start: 04-02-2024 End: 04-02-2024 Emergency department patient visit Naomi Benito DO Work Phone: [facility] Comment on above: Right ovarian cyst ( Primary Dx) Start: 03-17-2024 End: 03-17-2024 Emergency department patient visit Prudence Wong MD Work Phone: [facility] Start: 03-10-2024 End: 03-10-2024 Emergency department patient visit [facility] Start: 02-15-2024 End: 02-15-2024 Office outpatient visit 15 minutes [facility] Comment on above: Pelvic pain (Primary Dx); Routine general medical examination at a health care facility Start: 02-15-2024 End: 02-15-2024 Patient encounter status [facility] Resident [facility] Work Phone: Start: 02-07-2024 End: 02-08-2024 Emergency department patient visit MARNIE CARVERINBRISA [facility] Start: 02-07-2024 End: 02-08-2024 Emergency department patient visit NO PCP NO PCP [facility] Start: 02-07-2024 End: 02-07-2024 Emergency department patient visit [facility] ED Comment on above: Abdominal pain, righ t lower quadrant (Primary Dx); Pelvic pain Start: 02-06-2024 End: 02-06-2024 ambulatory MICKIE LA [facility] Start: 02-06-2024 End: 02-06-2024 Subsequent hospital visit by physician Lauryn Perdue CNP Work Phone: [facility] Comment on above: Pelvic pain Start: 02-05-2024 End: 02-05-2024 Emergency department patient visit ALEX COWAN [facility] Start: 02-03-2024 End: 02-04-2024 Emergency department patient visit Ariana Daigle DO Work Phone: [facility] ED Comment on above: Right ovarian cyst ( Primary Dx) Start: 01-22-2024 End: 01-22-2024 Office outpatient new 30 minutes [facility] Women [facility] Resident 4yr [facility] Comment on above: Pelvic abscess in fe male (Primary Dx); Change or removal of drains Start: 01-22-2024 End: 01-22-2024 ambulatory [facility] Start: 01-19-2024 End: 01-19-2024 Telephone encounter [facility] Work Phone: [facility] Start: 01-15-2024 End: 01-15-2024 ambulatory [facility] Start: 01-14-2024 End: 01-14-2024 Telephone encounter Genna garay Comment on above: Pain; Weakness - Gen eralized Start: 01-14-2024 ambulatory [facility] Start: 01-13-2024 End: 01-17-2024 Evaluation and management of inpatient [facility] Start: 01-13-2024 Emergency department patient visit [facility] Start: 01-13-2024 End: 01-13-2024 Telephone encounter Chantelle garay Comment on above: Medication Request Start: 01-13-2024 End: 01-13-2024 Emergency department patient visit ROBBIN MANTEI [facility] Start: 01-09-2024 End: 01-09-2024 ambulatory AR GURROLA Not Available Start: 01-08-2024 End: 01-08-2024 Emergency department patient visit PHYSICIAN MIHAI ANDRADE [facility] Work Phone: Start: 01-04-2024 End: 01-04-2024 Telephone encounter Lupe Gonsalo [facility] Start: 12-18-2023 End: 12-18-2023 Emergency department patient visit None Provider Facility:[facility] Start: 11-28-2023 End: 11-28-[address] [facility] Start: 11-26-2023 End: 11-27-2023 [facility] Start: 11-20-2023 End: 11-20-[address] [facility] Start: 11-20-2023 End: 11-20-2023 [facility] Comment on above: Postoperative pain ( Primary Dx); Menorrhagia with regular cycle; Pelvic pain; Adenomyosis; Pelvic congestion syndrome Start: 10-18-2023 End: 10-18-2023 ambulatory Juan Santillan Facility:[facility] Start: 08-15-2023 End: 08-15-2023 Emergency department patient visit Sage Funes DO Work Phone: [facility] Comment on above: Viral upper respirat ory tract infection (Primary Dx) Start: 07-25-2023 End: 07-25-2023 ambulatory LAURYN HUANG [facility] Start: 07-25-2023 End: 07-25-2023 Subsequent hospital visit by physician Kisha Rangel MD Work Phone: [facility] Comment on above: Chronic GERD; Diarrhea, unspecified type; Gas pain Start: 06-09-2023 End: 06-09-2023 Emergency department patient visit None Provider Facility:[facility] Start: 06-04-2023 End: 06-04-2023 ambulatory None Provider Facility:[facility] Start: 05-05-2023 End: 05-05-2023 ambulatory PHYSICIAN NO [facility] Work Phone: Start: 05-05-2023 End: 05-05-2023 Departed Referred PHYSICIAN NO [facility] [place] Work Phone: Start: 04-15-2023 End: 04-16-2023 Emergency department patient visit None Provider Facility:[facility] Start: 02-26-2023 End: 02-27-2023 Evaluation and management of inpatient PHYSICIAN NO [facility] [place] Work Phone: Start: 02-25-2023 End: 02-25-2023 Patient encounter procedure PHYSICIAN NO [facility] - O/P Start: 02-25-2023 End: 02-25-2023 ambulatory PHYSICIAN NO [facility] Work Phone: Start: 02-22-2023 End: 02-22-2023 Patient encounter procedure PHYSICIAN NO [facility] - O/P Start: 02-22-2023 End: 02-22-2023 ambulatory PHYSICIAN NO [facility] Work Phone: Start: 02-19-2023 End: 02-19-2023 Patient encounter procedure PHYSICIAN NO [facility] - O/P Start: 02-19-2023 End: 02-19-2023 ambulatory PHYSICIAN NO [facility] Work Phone: Start: 02-17-2023 End: 02-17-2023 Patient encounter procedure PHYSICIAN NO [facility] - O/P Start: 02-17-2023 End: 02-17-2023 ambulatory PHYSICIAN NO [facility] Work Phone: Start: 02-16-2023 End: 02-16-2023 ambulatory Ar Printy Facility:[facility] Start: 02-16-2023 End: 02-16-2023 Departed Referred PHYSICIAN NO [facility] [place] Work Phone: Start: 02-07-2023 End: 02-07-2023 Patient encounter procedure PHYSICIAN NO [facility] - O/P Start: 02-07-2023 End: 02-07-2023 ambulatory Jonathan Visci Facility:[facility] Start: 01-26-2023 End: 01-26-2023 Patient encounter procedure PHYSICIAN NO [facility] - O/P Start: 01-26-2023 End: 01-26-2023 ambulatory PHYSICIAN NO [facility] Work Phone: Start: 01-24-2023 End: 01-24-2023 Patient encounter procedure PHYSICIAN NO [facility] Labor - O/P Start: 01-24-2023 End: 01-24-2023 ambulatory PHYSICIAN NO [facility] Work Phone: Start: 01-16-2023 End: 01-16-2023 ambulatory None Provider Facility:[facility] Start: 01-14-2023 End: 01-14-2023 Patient encounter procedure PHYSICIAN NO [facility] [place] [facility] - O/P Start: 01-14-2023 End: 01-14-2023 ambulatory PHYSICIAN NO [facility] Work Phone: Start: 01-11-2023 End: 01-11-2023 Emergency department patient visit [facility] Facility:[facility] Start: 01-05-2023 End: 01-05-2023 ambulatory None Provider Facility:[facility] Start: 12-08-2022 End: 12-08-2022 Patient encounter procedure PHYSICIAN NO [facility] - O/P Start: 11-20-2022 End: 11-20-2022 ambulatory PHYSICIAN NO [facility] Work Phone: Start: 11-20-2022 End: 11-20-2022 Patient encounter procedure PHYSICIAN NO [facility] - O/P Start: 11-03-2022 End: 11-03-2022 Patient encounter procedure PHYSICIAN NO [facility] Labor - O/P Start: 07-21-2022 End: 07-21-2022 ambulatory Denzel Maria Eugeniaandresamadeo Other [facility] Other Start: 07-21-2022 Telephone encounter Denzel Maria Eugeniaezra [facility] Start: 07-20-2022 End: 07-20-2022 ambulatory Denzel Maria Eugeniaandresamadeo Other [facility] Other Start: 07-20-2022 Telephone encounter Denzel Maria Eugeniaezra CAR[facility] Start: 07-05-2022 End: 07-05-2022 ambulatory Denzel Maria Eugeniaandresamadeo Other [facility] Other Start: 07-05-2022 Telephone encounter Denzel Maria Eugeniaezra [facility] Start: 06-30-2022 End: 06-30-2022 ambulatory Denzel Maria Eugeniaandresamadeo Other [facility] Other Start: 06-30-2022 Telephone encounter Denzel Maria Eugeniaezra [facility] Start: 06-14-2022 End: 06-14-2022 ambulatory Denzel Maria Eugeniaandresamadeo Other [facility] Other Start: 06-14-2022 Telephone encounter Denzel Maria Eugeniaezra [facility] Start: 05-30-2022 End: 05-30-2022 ambulatory Denzel Maria Eugeniaandresy Other [facility] Other Start: 05-30-2022 Telephone encounter Denzel Maria Eugeniaezra ACRL [facility] Start: 04-26-2022 End: 04-26-2022 ambulatory Denzel Maria Eugeniaandresy Other [facility] Other Start: 04-26-2022 [facility] visit new patient Denzel Thomas [facility] Start: 03-21-2022 End: 03-21-2022 ambulatory Hernan Salas Other [place] [employer] Other Start: 03-21-2022 Telephone encounter Hernan Calvo ck [facility] Procedures Date Procedure Procedure Detail Performing Clinician Start: 04-16-2024 Radiologic exam abdo men 1 view Nicolette Wyman MD Work Phone: Start: 04-15-2024 Blood count complete auto&auto difrntl wbc Aubrie L Isaac CLINICAL QUALITY MANAGER - [employer] Work Phone: Start: 04-14-2024 Radiologic exam abdo men 1 view Nicolette Wyman MD Work Phone: Start: 04-14-2024 Assay of magnesium Tate n L Isaac CLINICAL QUALITY MANAGER - [employer] Work Phone: Start: 04-13-2024 Radiologic exam abdo men 1 view Nicolette Wyman MD Work Phone: Start: 04-13-2024 Assay of magnesium Tate n L Isaac CLINICAL QUALITY MANAGER - [employer] Work Phone: Start: 04-12-2024 Assay of magnesium Tate n L Isaac CLINICAL QUALITY MANAGER - [employer] Work Phone: Start: 04-11-2024 End: 04-12-2024 Rhythm ecg 1-3 leads w/interpretation & report Unknown Provider Result Start: 04-11-2024 Blood count complete auto&auto difrntl wbc Aubrie L Isaac CLINICAL QUALITY MANAGER - [employer] Work Phone: Start: 04-11-2024 SURGICAL PATHOLOGY REPORT Nicolette Wyman MD Work Phone: Start: 04-10-2024 Cul prsmptv pthgnc o rganism scrn w/colony estimj Cristiano Singh MD Work Phone: Start: 04-10-2024 End: 04-11-2024 LAPAROTOMY EXPLORATORY Cristiano Singh MD Work Phone: Start: 04-10-2024 Blood typing serologic abo Cristiano Singh MD Work Phone: Start: 04-10-2024 Assay of lactate Juanis Palencia PA-C Work Phone: Start: 04-10-2024 Ct abdomen & pelvis w/contrast material Juanis Palencia PA-C Work Phone: Start: 04-10-2024 Us transvaginal Juanis Palencia PA-C Work Phone: Start: 04-10-2024 Ecg routine ecg w/le ast 12 lds i&r only Juanis Mendez Palencia PA-C Work Phone: Start: 04-10-2024 Basic metabolic pane l calcium total Juanis Palencia PA-C Work Phone: Start: 04-10-2024 Urinalysis microscopic only Juanis Palencia PA-C Work Phone: Start: 04-10-2024 Urnls dip stick/tabl et rgnt auto w/o microscopy Juanis Palencia PA-C Work Phone: Start: 04-09-2024 Us transvaginal Rebecca Benito DO Work Phone: Start: 04-09-2024 Urinalysis microscopic only Naomi Benito DO Work Phone: Start: 04-09-2024 Urnls dip stick/tabl et rgnt auto w/o microscopy Naomi Benito DO Work Phone: Start: 04-09-2024 Basic metabolic pane l calcium total Naomi Benito DO Work Phone: Start: 04-02-2024 Ct abdomen & pelvis w/contrast material Naomi Benito DO Work Phone: Start: 04-02-2024 Us transvaginal Rebecca Benito DO Work Phone: Start: 04-02-2024 Comprehensive metabo lic panel Naomi Benito DO Work Phone: Start: 04-02-2024 Urinalysis microscopic only Naomi Benito DO Work Phone: Start: 04-02-2024 Urnls dip stick/tabl et rgnt auto w/o microscopy Naomi Benito DO Work Phone: Start: 03-17-2024 Ct abdomen & pelvis w/contrast material Prudence Wong MD Work Phone: Start: 03-17-2024 Urinalysis microscopic only Prudence Wong MD Work Phone: Start: 03-17-2024 Urnls dip stick/tabl et rgnt auto w/o microscopy Prudence Wong MD Work Phone: Start: 03-17-2024 Comprehensive metabo lic panel Prudence Wong MD Work Phone: Start: 02-07-2024 Ct abdomen & pelvis w/contrast material Maame Bear Rolando CLINICAL QUALITY MANAGER - ENTRY L[employer]EL [place] Work Phone: Start: 02-07-2024 Urinalysis microscopic only Marianela Lizarraga MD Work Phone: Start: 02-07-2024 Urnls dip stick/tabl et rgnt auto w/o microscopy Marianela Lizarraga MD Work Phone: Start: 02-07-2024 End: 02-07-2024 Comprehensive metabolic panel Marianela Lizarraga MD Work Phone: Start: 02-03-2024 Ct abdomen & pelvis w/contrast material Ariana Baldomero Daigle DO Work Phone: Start: 02-03-2024 Comprehensive metabo lic panel Ariana J Daigle DO Work Phone: Start: 02-03-2024 Urine test visual color cmprsn meths Ariana J Daigle DO Work Phone: Start: 02-03-2024 Urnls dip stick/tabl et reagent auto microscopy Ariana Baldomero Daigle DO Work Phone: Start: 01-08-2024 SARS-CoV-2, Influenz a & RSV (PCR) PHYSICIAN NO FAMILY Start: 01-08-2024 Trichomonas vaginali s detection PHYSICIAN NO FAMILY Start: 01-08-2024 Computed tomography of abdomen and pelvis with contrast PHYSICIAN NO FAMILY Start: 08-15-2023 COVID-19, RAPID Sage Andes DO Work Phone: Start: 08-15-2023 Iaadiadoo influenza Jus tin Andes DO Work Phone: Start: 08-15-2023 Radiologic exam ches t single view Sage Andes DO Work Phone: Start: 07-25-2023 Urine test visual color cmprsn meths Kisha Rangel MD Work Phone: Start: 02-27-2023 Antibody screen Ar vu Comment on above: Result Comment: PERF ORMED BY: [facility] [address] [place] [address] PATHOLOGIST 21 DEALER LARISSA GUERRA M.D. Start: 02-26-2023 Urine culture PHYSICIAN NO FAMILY Start: 02-22-2023 Urine culture PHYSICIAN NO FAMILY Start: 02-16-2023 Streptococcus agalac tiae culture PHYSICIAN NO FAMILY Start: 01-05-2022 Adult depression scr eening assessment Lupe Claros [facility] Start: 05-19-2020 Microscopic observat ion [Identifier] in Cervix by Cyto stain Lupe Claros [facility] Plan of Treatment Date Care Activity Detail Author Start: 02-27-2033 DTaP,Tdap and Td Vaccines (9 - Td or Tdap) DTaP,Tdap and Td Vaccines (9 - Td or Tdap) [facility] Start: 02-27-2033 DTaP/Tdap/Td vaccine (9 - Td or Tdap) DTaP/Tdap/Td vaccine (9 - Td or Tdap) [facility] Start: 12-09-2031 DTaP,Tdap and Td Vaccines (8 - Td or Tdap) DTaP,Tdap and Td Vaccines (8 - Td or Tdap) [facility] Start: 02-17-2025 Influenza vaccination Influenza Vaccine (Season Ended) [facility] Start: 02-14-2025 Adult BMI Screening Adult BMI Screening [facility] Start: 02-14-2025 Tobacco Screening Tobacco Screening [facility] Start: 01-21-2025 Adult BMI Screening Adult BMI Screening [facility] Start: 01-21-2025 Tobacco Screening Tobacco Screening [facility] Start: 01-16-2025 Adult BMI Screening Adult BMI Screening [facility] Start: 01-14-2025 Tobacco Screening Tobacco Screening [facility] Start: 01-12-2025 Adult BMI Screening Adult BMI Screening [facility] Start: 01-12-2025 Tobacco Screening Tobacco Screening [facility] Start: 10-30-2024 Depression Monitoring Depression Monitoring [facility] Start: 09-17-2024 End: 09-17-2024 Patient encounter procedure 09/17/2024 4:15 PM EDT Office Visit [facility] [address] [place] [phone] Ar Gurrola MD [address] [place] [address] [facility] Start: 09-17-2024 End: 09-17-2024 Professional / ancillary services management 09/17/2024 3:00 PM EDT Ancillary Procedure [facility] [address] [place] [address] [facility] Start: 09-17-2024 End: 09-17-2024 Patient encounter procedure 09/17/2024 11:45 AM EDT Office Visit [facility] [address] [place] [address] Ar Gurrola MD [address] [place] [address] [facility] Start: 09-11-2024 End: 09-11-2024 Patient encounter procedure 09/11/2024 1:30 PM EDT Office Visit [facility] [address] [place] [address] Ar Gurrola MD [address] [place] [address] Arrived [facility] Comment on above: Arrived Start: 08-01-2024 End: 08-01-2024 Patient encounter procedure 08/01/2024 1:45 PM EST Office Visit [facility] [address] [place] [phone] Ar Gurrola MD [address] [place] [address] [facility] Start: 08-01-2024 End: 08-01-2024 Professional / ancillary services management 08/01/2024 1:00 PM EST Ancillary Procedure [facility] [address] [place] [address] [facility] Start: 07-19-2024 Depression Monitoring Depression Monitoring [facility] Start: 07-10-2024 End: 07-10-2024 Patient encounter procedure 07/10/2024 2:30 PM EST Office Visit [facility] [address] [place] [phone] Ar Gurrola MD [address] [place] [address] Pelvic pain in female; Chronic low back pain without sciatica, unspecified back pain laterality [facility] Comment on above: Pelvic pain in female; Chronic low back pain without sciatica, unspecified back pain laterality Start: 06-04-2024 End: 06-04-2024 Patient encounter procedure 06/04/2024 11:30 AM EST Office Visit [facility] [address] [facility] [phone] Asael Tapia, CLINICAL QUALITY MANAGER-ENTRY LEVEL [place] [address] [facility] [place] [address] [facility] Start: 05-29-2024 End: 05-29-2024 Patient encounter procedure 05/29/2024 2:00 PM EST Office Visit [facility] OBSTETRICS & GYNECOLOGY [address] [place] [address] Niki Bowser MD [address] [facility] [address] [place] [address] follow up from surgery 04/10/24 [facility] OBSTETRICS & [facility]YNECOLOG[facility] Comment on above: follow up from surgery 04/10/24 Start: 04-23-2024 End: 04-23-2024 Patient encounter procedure 04/23/2024 4:00 PM EST Office Visit [facility] GENERAL SURGERY Part of [address] [place] [phone] Mary Ellen Soriano, DO [address] [place] [address] Post op (Francisco 04/10)-ex lap, appy [facility] Comment on above: Post op (04/10)-ex lap, appy Start: 03-22-2024 End: 03-22-2024 Patient encounter procedure 03/22/2024 1:30 PM EDT Office Visit [facility] [address] [place] [phone] [facility] Start: 02-20-2024 End: 02-20-2024 Patient encounter procedure 02/20/2024 1:00 PM EDT Office Visit [facility] OBSTETRICS & GYNECOLOGY Part [address] [place] [address] Mickie Barrientos, DO [address] [place], [place] [id number] P/O follow up infection [facility]STETR[facility] & [facility]ECOLOG[facility] Comment on above: P/O follow up infection Start: 02-18-2024 COVID-19 Vaccine () COVID-19 Vaccine ( season) [facility] Start: 02-18-2024 Influenza vaccination [facility] Start: 02-06-2024 End: 02-06-2024 Patient encounter procedure 02/06/2024 4:30 PM EDT Office Visit [facility]etric[facility] Gynecology [address] [facility], [address] [place] [address] Esther Burrell PA-C [address] [place] [address] F/U from admission to [facility] Comment on above: F/U from admission to [facility] Start: 01-18-2024 Influenza vaccination [facility] Start: 01-08-2024 [facility] Start: 01-08-2024 Bacteria identified in Blood by Culture [facility] Start: 01-08-2024 Genital Culture Genital Culture [facility] Start: 01-05-2024 End: 01-05-2024 Patient encounter procedure 01/05/2024 10:00 AM EDT Office Visit [facility] Certified Nurse Gymnastic Coach - [place] [address] [phone] [facility] Certified Nurse Gymnastic Coach - [place] Start: 12-26-2023 End: 12-26-2023 Patient encounter procedure 12/26/2023 11:45 AM EDT Office Visit [facility] OBSTETRICS & GYNECOLOGY [address] [place] [address] Mickie Barrientos DO [address] [place] [address] 6 wk post-op [facility] 09/12 [facility] OBSTETRICS & [facility]EC[facility] Comment on above: 6 wk post-op [facility] 09/12 Start: 12-06-2023 End: 12-06-2023 Patient encounter procedure 12/06/2023 11:30 AM EDT Office Visit [facility] OBSTETRICS & GYNECOLOGY [address] [place] [address] Esther Burrell PA-C [address] [place] [address] 2 wk post-op [facility] 09/12 [facility] OBSTETRICS [facility] Comment on above: 2 wk post-op [facility] 09/12 Start: 11-20-2023 End: 11-20-2023 Laps total hysterect 250 gm/< w/rmvl tube/ovary HYSTERECTOMY VAGINAL LAPAROSCOPIC ROBOTIC ASSISTED Menorrhagia with regular cycle Pelvic pain Adenomyosis Pelvic congestion syndrome 11/20/2023 1:56 PM EDT [facility] Start: 08-29-2023 End: 08-29-2023 Patient encounter procedure 08/29/2023 11:30 AM EDT Office Visit [address] [place] [address] Mickie Barrientos DO [address] [place] [address] senior embedded software engineer us for RLQ pain & DUB / discuss Hyst / Kp Pt [facility] Comment on above: senior embedded software engineer us for RLQ pain & DUB / discuss Hyst / Kp Pt Start: 08-29-2023 End: 08-29-2023 Professional / ancillary services management 08/29/2023 11:00 AM EDT Ancillary Procedure [facility] OBSTETRICS & GYNECOLOGY Part of [address] [place] [address] senior embedded software engineer us / RLQ pain & DUB [facility] OBSTETRICS [facility] Comment on above: senior embedded software engineer us / RLQ pain & DUB Start: 08-23-2023 End: 08-23-2023 Patient encounter procedure 08/23/2023 10:30 AM EST Office Visit [facility] [address] [place] [address] Pia Coates, CLINICAL QUALITY MANAGER - ENTRY LEVEL [place] [address] [place] [address] 6 wks [facility] Comment on above: 6 wks Start: 07-25-2023 End: 07-25-2023 Esophagogastroduodenoscopy transoral diagnostic EGD ESOPHAGOGASTRODUODENOSCOPY Chronic GERD Diarrhea, unspecified type Gas pain 07/25/2023 9:18 AM EST [facility] Start: 05-19-2023 Screening for malignant neoplasm of cervix Pap Smear [facility] Start: 02-27-2023 Rubella IgG measurement [facility] Start: 02-27-2023 [facility] Start: 02-27-2023 [facility] Start: 02-26-2023 Hospital admission [facility] Start: 02-26-2023 Hospital admission [facility] Start: 02-26-2023 [facility] Start: 02-26-2023 Delivery of Products of Conception, External Approach Delivery of Products of Conception, External Approach [facility] Start: 02-26-2023 Drainage of Amniotic Fluid, Therapeutic from Products of Conception, Via Natural or Artificial Opening Drainage of Amniotic Fluid, Therapeutic from Products of Conception, Via Natural or Artificial Opening [facility] Start: 02-26-2023 Urine culture Urine Culture [facility] Start: 02-25-2023 [facility] Start: 02-25-2023 Hospital admission [facility] Start: 02-22-2023 [facility] Start: 02-22-2023 Hospital admission [facility] Start: 02-22-2023 Bacteria identified in Urine by Culture [facility] Start: 02-19-2023 [facility] Start: 02-19-2023 Hospital admission [facility] Start: 02-17-2023 [facility] Start: 02-17-2023 Hospital admission [facility] Start: 02-17-2023 COVID-19 Vaccine ( season) COVID-19 Vaccine ( season) [facility] Start: 02-16-2023 Streptococcus agalactiae culture Group B Streptococcus Culture [facility] Start: 02-07-2023 [facility] Start: 02-07-2023 Hospital admission [facility] Start: 01-26-2023 [facility] Start: 01-26-2023 Hospital admission [facility] Start: 01-24-2023 Hospital admission [facility] Start: 01-24-2023 End: 01-24-2023 [facility] Start: 01-17-2023 Influenza vaccination Flu vaccine (#1) [facility] Start: 01-14-2023 [facility] Start: 01-14-2023 Hospital admission [facility] Start: 01-05-2023 Adult BMI Screening [facility] Start: 01-05-2023 Depression Screening [facility]ening [facility] Start: 01-05-2023 Tobacco Screening [facility]ening [facility] Start: 12-08-2022 [facility] Start: 12-08-2022 Hospital admission [facility] Start: 11-20-2022 [facility] Start: 11-20-2022 Hospital admission [facility] Start: 11-03-2022 [facility] Start: 11-03-2022 Hospital admission [facility] Start: 09-12-2016 Screening for malignant neoplasm of cervix Pap smear [facility] Start: 09-12-2013 Adult BMI Follow Up Plan [facility] Start: 09-12-2013 Hepatitis C screening Hepatitis C screen [facility] Start: 09-12-2010 HIV screening HIV screen [facility] Start: 02-12-2003 Varicella vaccine (2 of 2 - 2-dose childhood series) Varicella vaccine (2 of 2 - 2-dose childhood series) [facility] Start: 09-12-2001 Pneumococcal 0-64 years Vaccine (1 of 2 - PCV) Pneumococcal 0-64 years Vaccine (1 of 2 - PCV) [employer] Start: 03-15-1996 COVID-19 Vaccine (#1) COVID-19 Vaccine (#1) [facility] Start: 1995 Tobacco Counseling Tobacco Counseling [facility] Bacteria identified in Genital specimen by Aerobe culture [facility] End: 02-03-2024 Blood Culture 1 [facility] Comment on above: One Time for 1 Occurrences starting 01/17 until 02/03/2024 CT Abdomen and Pelvi s W contrast IV CT ABDOMEN PELVIS W IV CONTRAST Additional Contrast? None Imaging STAT 04/02/2024 12:29 PM EDT [employer] Hepatitis B virus jeninngs rface Ag [Presence] in Serum or Plasma by Immunoassay [facility] End: 11-20-2023 INITIATE PACU OXYGEN THERAPY PROTOCOL Initiate PACU Oxygen Therapy Protocol Respiratory Care Routine Continuous until discontinued starting 11/20/2023 [facility] Comment on above: Continuous until discontinued starting 0 11/20/2023 Oxygen therapy [Mini mum Data Set] Initiate Oxygen Therapy Protocol Respiratory Care Routine As Needed until discontinued starting 11/20/2023 [facility] Comment on above: As Needed until discontinued starting Oxygen therapy [Mini mum Data Set] Initiate Oxygen Therapy Protocol Respiratory Care Routine Daily until discontinued starting 04/11/2024 [employer] Comment on above: Daily until discontinued starting 2023 Patient Education [facility] Work Phone: Patient referral [facility] Work Phone: End: 11-20-2023 , urine POCT , urine POCT Point of Care Testing Routine One Time for 1 Occurrences starting 11/20/2023 until 11/20/2023 [facility] Comment on above: One Time for 1 Occurrences starting 08/2023 until 11/20/2023 Reagin Ab [Presence] in Serum by RPR [facility] Surgical Pathology Surgical Path ology Lab Routine Chronic GERD Diarrhea, unspecified type Gas pain Release Upon Ordering for 1 Occurrences starting 07/25/2023 [facility] Work Phone: Comment on above: Release Upon Ordering for 1 Occurrences starting 07/25/2023 Surgical Pathology Surgical Path ology Lab Routine Menorrhagia with regular cycle Pelvic pain Adenomyosis Pelvic congestion syndrome Release Upon Ordering for 1 Occurrences starting 11/20/2023 [facility] Work Phone: Comment on above: Release Upon Ordering for 1 Occurrences starting 11/20/2023 End: 11-20-2023 SURGICAL PATHOLOGY REPORT SURGICAL PATHOLOGY REPORT Lab Routine Once for 1 Occurrences starting 11/20/2023 until 11/20/2023 [facility] [employer] Comment on above: Once for 1 Occurrences starting 11/20/19 until 11/20/2023 Surgical pathology study Surgica l Pathology Lab Routine Peritoneal cavity free air Release Upon Ordering for 1 Occurrences starting 04/10/2024 [employer] Comment on above: Release Upon Ordering for 1 Occurrences starting 04/10/2024 End: 03-17-2024 US Pelvis transvaginal [facility] [employer] Work Phone: Comment on above: Once for 1 Occurrences starting 03/17/20 until 03/17/2024 End: 02-06-2024 Vaginitis DNA Probe [facility] [employer] Comment on above: 1 Occurrences starting 02/06/2024 until 02/06/2024 Immunizations Immunization Date Immunization Notes Care Provider Fa cility 02-27-2023 tetanus toxoid, redu hoda diphtheria toxoid, and acellular pertussis vaccine, adsorbed PHYSICIAN NO [facility] 12-08-2021 measles, mumps and rubella virus vaccine PHYSICIAN NO [facility] 12-08-2021 tetanus toxoid, redu hoda diphtheria toxoid, and acellular pertussis vaccine, adsorbed PHYSICIAN NO [facility] 12-27-2018 tetanus toxoid, redu hoda diphtheria toxoid, and acellular pertussis vaccine, adsorbed [facility] Work Phone: [facility] 07-26-2014 measles, mumps and rubella virus vaccine [facility] Work Phone: [facility] 04-24-2014 influenza, seasonal, injectable, preservative free [facility] Work Phone: [facility] 04-24-2014 influenza virus vaccine, unspecified formulation Lupe STEPHENSON [facility] 11-20-2002 diphtheria, tetanus toxoids and acellular pertussis vaccine, unspecified formulation [facility] Work Phone: [facility] 11-20-2002 haemophilus influenz ae type b conjugate and Hepatitis B vaccine [facility] Work Phone: [facility] 11-20-2002 measles, mumps and rubella virus vaccine [facility] Work Phone: [facility] 11-20-2002 varicella virus vaccine Cent er Services Work Phone: [facility] 04-03-2002 diphtheria, tetanus toxoids and acellular pertussis vaccine, unspecified formulation [facility] Work Phone: [facility] 04-03-2002 haemophilus influenz ae type b vaccine, conjugate unspecified formulation [facility] Work Phone: [facility] 04-03-2002 poliovirus vaccine, inactivated [facility] Work Phone: [facility] 02-07-2002 diphtheria, tetanus toxoids and acellular pertussis vaccine, unspecified formulation [facility] Work Phone: [facility] 02-07-2002 haemophilus influenz ae type b conjugate and Hepatitis B vaccine [facility] Work Phone: [facility] 02-07-2002 poliovirus vaccine, inactivated [facility] Work Phone: [facility] 12-05-2001 diphtheria, tetanus toxoids and acellular pertussis vaccine, unspecified formulation [facility] Work Phone: [facility] 12-05-2001 haemophilus influenz ae type b conjugate and Hepatitis B vaccine [facility] Work Phone: [facility] 12-05-2001 poliovirus vaccine, inactivated [facility] Work Phone: [facility] 10-31-2000 diphtheria, tetanus toxoids and acellular pertussis vaccine, unspecified formulation [facility] Work Phone: [facility] 10-31-2000 measles, mumps and rubella virus vaccine [facility] Work Phone: [facility] 10-31-2000 poliovirus vaccine, inactivated [facility] Work Phone: [facility] 11-01-1996 diphtheria, tetanus toxoids and acellular pertussis vaccine, unspecified formulation [facility] Work Phone: [facility] 11-01-1996 haemophilus influenz ae type b vaccine, conjugate unspecified formulation [facility] Work Phone: [facility] 11-01-1996 measles, mumps and rubella virus vaccine [facility] Work Phone: [facility] 04-17-1996 DTP-Haemophilus influenzae type b conjugate vaccine [facility] Work Phone: [facility] 04-17-1996 hepatitis B vaccine, pediatric or pediatric/adolescent dosage [facility] Work Phone: [facility] 04-17-1996 trivalent poliovirus vaccine, live, oral [facility] Work Phone: [facility] 02-01-1996 DTP-Haemophilus influenzae type b conjugate vaccine [facility] Work Phone: [facility] 02-01-1996 trivalent poliovirus vaccine, live, oral [facility] Work Phone: [facility] 1995 DTP-Haemophilus influenzae type b conjugate vaccine [facility] Work Phone: [facility] 1995 hepatitis B vaccine, pediatric or pediatric/adolescent dosage [facility] Work Phone: [facility] 1995 trivalent poliovirus vaccine, live, oral [facility] Work Phone: [facility] 1995 hepatitis B vaccine, pediatric or pediatric/adolescent dosage [facility] Work Phone: [facility] Payers Date Payer Category Payer Self-pay [id number] 2022 Private Health Insurance [facility] MEDICAID [id number] 2022 Unknown [id number] 2022 Medicaid [employer] HMO [id number] 2022-Present [phone] [address] [place] [address] [id number] 2018 Medicaid [id number] 1995 Unknown [id number] 1995 Unknown [id number] 1995 Unknown [id number] 1995 Unknown [id number] 1995 Unknown [id number] 1995 Unknown [id number] 1995 Unknown [id number] 2.16840.1.791983.3.579.2. 718 1995 Unknown [id number] 2.16.840.1.538969.3.579.2. 718 1995 Unknown [id number] 2.16840.1.421022.3.579.2. 718 1995 Unknown [id number] 2.16840.1.885152.3.579.2. 1286 1995 Unknown [id number] 2.16.840.1.684944.3.579.2. 1286 1995 Unknown [id number] 2.16.840.1.557369.3.579.2. 1286 1995 Unknown [id number] 2.16.840.1.131789.3.579.2. 1286 1995 Unknown [id number] 2.16.840.1.689153.3.579.2. 1286 1995 Unknown [id number] 2.16.840.1.327166.3.579.2. 1286 1995 Unknown [id number] 2.16.840.1.258764.3.579.2. 1286 1995 Unknown [id number] 2.16.840.1.122751.3.579.2. 173 1995 Unknown [id number] 2.16.840.1.686416.3.579.2. 173 1995 Unknown [id number] 2.16.840.1.176518.3.579.2. 173 1995 Unknown [id number] 2.16.840.1.315797.3.579.2. 173 1995 Unknown [id number] 2.16.840.1.710420.3.579.2. 173 1995 Unknown [id number] 2.16.840.1.074041.3.579.2. 173 1995 Unknown [id number] 2.16.840.1.452439.3.579.2. 173 1995 Unknown [id number] 2.16.840.1.761356.3.579.2. 173 1995 Unknown [id number] 2.16.840.1.837984.3.579.2. 173 1995 Unknown [id number] 2.16.840.1.466376.3.579.2. 173 1995 Unknown [id number] 2.16.840.1.761995.3.579.2. 173 1995 Unknown [id number] 2.16840.1.844465.3.579.2. 173 1995 Unknown [id number] 2.16.840.1.232978.3.579.2. 173 1995 Unknown [id number] 2.840.1.378058.3.579.2. 9 1995 Unknown [id number] 2.840.1.397125.3.579.2. 1258 1995 Unknown [id number] 2.840.1.268285.3.579.2. 1258 1995 Unknown [id number] 2.0.1.165574.3.579.2. 1258 1995 Unknown [id number] 2.0.1.977846.3.579.2. 1259 Unknown [id number] .0.1.289241.19 Unknown [place] BC/BS [id number] Unknown [id number] 2.0.1.283750.3.579.2. 531 Unknown [id number] 2.840.1.019217.3.579.2. 531 Unknown [id number] .0.1.401732.3.579.2. 531 Unknown [id number] 2.840.1.517159.3.579.2. 531 Unknown [id number] 2.840.1.279137.3.579.2. 531 Unknown [id number] 2.840.1.161212.3.579.2. 531 Unknown [id number] 2.840.1.199896.3.579.2. 531 Unknown [id number] 2.840.1.665347.3.579.2. 531 Unknown [id number] 2.16.840.1.689642.3.579.2. 531 Unknown [id number] 2.16.840.1.113350.3.579.2. 531 Unknown [id number] 2.16.840.1.683681.3.579.2. 531 Social History Date Type Detail Facility Start: 07-25-2023 End: 09-17-2024 Sex Assigned At [facility] Start: 06-21-2022 End: 01-08-2024 Tobacco smoking status AZIS Smoker (finding) [facility] Start: 1995 Sex Assigned At Female [facility] Start: 07-24-2023 Tobacco smoking status AZIS Never smoked tobacco [facility] Start: 04-25-2023 End: 07-24-2023 Tobacco use and exposure Smokeless tobacco non-user [facility] Start: 07-25-2023 End: 02-15-2024 Alcohol intake Ex-drinker (finding) [facility] Start: 07-25-2023 End: 09-17-2024 History of Social function [facility] Patient Health Questionnaire 9 item (PHQ-9) total score [Reported] 23 [facility] Start: 07-19-2023 Alcohol Comment occ [facility] Start: 1995 Sex Assigned At Not on file [facility] How often to you hav e a drink containing alcohol? Never [facility] Start: 02-15-2024 End: 04-02-2024 Tobacco smoking status [facility] Smokes tobacco daily [employer] History of tobacco use Cigarette Smoker P [employer] Has the electric, ga s, oil, or water company threatened to shut off services in your home in past 12Mo No [facility] (I/We) worried dasha er (my/our) food would run out before (I/we) got money to buy more. Never true [employer] Start: 04-25-2023 Tobacco smoking status AZIS Occasional tobacco smoker [facility] Start: 01-23-2024 End: 09-17-2024 Alcoholic beverage intake Lifetime non-drinker (finding) [facility] Start: 05-03-2023 Education 13 [facility] Start: 07-22-2024 Sex Female (finding) [facility] Start: 06-30-2020 Tobacco smoking status NHIS Ex-smoker [facility] Start: 04-28-2020 End: 02-15-2024 Tobacco Comment Down to 2-3 cig/day with [facility] Goals Date Patient Goal Desired Activity /State Personal health goal Comment on above: Formatting of this n ote might be different from the original. Evaluation of progress towards goal: progressing towards safe discharge from hospital Functional Status Date Assessment Result Facility 02-27-2023 Functional status Patient at [facility] Work Phone: Mental Status Date Assessment Result Facility 02-27-2023 Cognitive function Cognitive Sta tus Patient at Baseline [facility] Work Phone: Clinical Notes 04-26-2022 to 09-17-2024 Ar Gurrola MD - 09/17/2024 11:45 AM EDEmanuel Gurrola MD - 09/12/2024 1:00 PM EDEmanuel Gurrola MD - 09/11/2024 1:30 PM EDTTelephone Encounter - Irena Damon - 07/30/2024 1:22 PM ESTAttachments Note Date & Type Note Facility 09-17-2024 History of Present illness Narrative Pt had 4days of relief following last injection. By Monday morning the pain returned with intensity and she went to [place] [facility]. 12cc lidocaine again infiltrated into inferior extent of scar. Nevaeh well ICD-10-CM 1. Abdominal pain in female R10.9 2. Pelvic pain in female R10.[address] Reyes, pain specialist, to eval for potential nerve block documented in this encounter [facility] 09-12-2024 History of Present illness Narrative Images from the original note were not included. Ar Gurrola MD Obstetrics and Gynecology Patient: Barbra Claros, : 1995 (29 y.o.) DOS 09/12/24 Exam Date: 09/12/2024 HPI: Yesterday I infiltrated her incision with 10cc of lidocaine. She had dramatic reduction in herpain yesterday afternoon. However, the block wore off and her pain returned. She is here today for another block Visit Vitals LMP 06/15/2023 OB Status Hysterectomy Smoking Status Some Days OB History Para Term AB Living 4 3 2 1 0 4 SAB IAB Ectopic Multiple Live Births 0 0 0 0 3 # Outcome Date GA Lbr Osmin/2nd Weight Sex Type Anes PTL Lv 4 Term 2021 37w0d Vag-Spont MIKE 3 2020 35w0d Vag-Spont MIKE 2 Term 2014 Vag-Spont MIKE 1 Obstetric Comments Pap: 08/11-Neg DAYAMI: HPV Neg Hysterectomy: 12/10-Benign Medication and Allergies Medication Documentation Review Audit Reviewed by Fe Silveira MA (Relief Charge Nurse) on 09/12/24 at 1302 Medication Order Taking? Sig Documenting Provider Last Dose Status venlafaxine XR (Effexor XR) 75 MG 24 hr capsule [id number] Take 75 mg by mouth in the morning. Take with meals. Ar Gurrola MD Active Allergies Allergen Reactions Chlorpheniramine Anaphylaxis and Other Dextromethorphan Other Dm-Apap-Cpm Angioedema and Swelling Throat Swells Pseudoephedrine Other Past Medical History: Diagnosis Date ADHD (attention deficit hyperactivity disorder) ([facility]) Anxiety History of being hospitalized blood transfusion, bronchitis, pneumonia Ovarian cyst PTSD (post-traumatic stress disorder) ([facility]) Past Surgical History: Procedure Laterality Date COSMETIC SURGERY nose age 4 CT ANGIOGRAM HEART CORONARY 01/13/2024 CT ANGIOGRAM TAVR 01/13/2024 HYSTERECTOMY OTHER SURGICAL HISTORY PELVIC LAPAROSCOPY 11/2019 with ovarian cystectomy SALPINGECTOMY Bilateral VAGINAL DELIVERY x3 2014, 2020, 2021 Physical Exam: Objective Physical Exam Abdominal: Comments: I infiltrated the inferior extent of her incision with 20cc of lidocaine. Nevaeh well Assessment/Plan ICD-10-CM 1. Abdominal pain in female R10.9 No orders of the defined types were placed in this encounter. documented in this encounter [facility] 09-11-2024 History of Present illness Narrative Images from the original note were not included. Ar Gurrola MD Obstetrics and Gynecology Patient: Barbra Claros, : 1995 (28 y.o.) DOS 09/11/24 Exam Date: 09/11/2024 HPI: C/O ongoing abd pain Pt has a complicated history. She had a TLH in 12/10. That was complicted by development of a pelvic abscess. She was transferred to [place]. She underwent CT guided drainage. After 2 weeks sh recovered, but her RLQ pain continues. In 04/11, she was seen at [facility] and CT showed air in the peritoneum. She had exploratory laparotomy and revision of the vag cuff. I montserrat reviewed Dr Bowser op note. He closed the vag apex. The right ovary was shrouded by adhesion which were lysed, thereby freeing the ovary. He descibes the ovary as normal. Since then, she cont to have daily RLQ pain that radiates down the leg and into the back She has been to [place] [facility] twice in last week. Sono shows normal ovaries. Normal blood work Visit Vitals BP 124/78 Wt 151 lb LMP 06/15/2023 BMI 24.75 kg/m OB Status Hysterectomy Smoking Status Some Days BSA 1.78 m OB History Para Term AB Living 4 3 2 1 0 4 SAB IAB Ectopic Multiple Live Births 0 0 0 0 3 # Outcome Date GA Lbr Osmin/2nd Weight Sex Type Anes PTL Lv 4 Term 2021 37w0d Vag-Spont MIKE 3 2020 35w0d Vag-Spont MIKE 2 Term 2014 Vag-Spont MIKE 1 Obstetric Comments Pap: 08/11-Neg DAYAMI: HPV Neg Hysterectomy: 12/10-Benign Medication and Allergies Medication Documentation Review Audit Reviewed by Fe Silveira MA (Relief Charge Nurse) on 07/10/24 at 1424 Medication Order Taking? Sig Documenting Provider Last Dose Status Discontinued 07/10/24 1424 Discontinued 07/10/24 1424 venlafaxine XR (Effexor XR) 75 MG 24 hr capsule [id number] Take 75 mg by mouth in the morning. Take with meals. Ar Gurrola MD Active Allergies Allergen Reactions Chlorpheniramine Anaphylaxis and Other Dextromethorphan Other Dm-Apap-Cpm Angioedema and Swelling Throat Swells Pseudoephedrine Other Past Medical History: Diagnosis Date ADHD (attention deficit hyperactivity disorder) ([facility]) Anxiety History of being hospitalized blood transfusion, bronchitis, pneumonia Ovarian cyst PTSD (post-traumatic stress disorder) ([facility]) Past Surgical History: Procedure Laterality Date COSMETIC SURGERY nose age 4 CT ANGIOGRAM HEART CORONARY 01/13/2024 CT ANGIOGRAM TAVR 01/13/2024 HYSTERECTOMY OTHER SURGICAL HISTORY PELVIC LAPAROSCOPY 11/2019 with ovarian cystectomy SALPINGECTOMY Bilateral VAGINAL DELIVERY x3 2014, 2020, 2021 Physical Exam: Objective Physical Exam Genitourinary: Vulva normal. Vaginal exam comments: She describes exquisite tenderness of her suprpubic region with light palp of vag mucosa. Pulmonary: Effort: Pulmonary effort is normal. Abdominal: General: Abdomen is flat. Palpations: Abdomen is soft. Comments: She describes exquisite tenderness with light palp of the inferior extent of her midline incision Assessment/Plan ICD-10-CM 1. Abdominal pain in female R10.9 I suspect a myofascial source of her pain in the lower abd. I infiltrated 10cc lidocaine without epi into the SubQ tissues under and surrounding the inferior extent of her incision. Nevaeh well. She reports a decrease in her pain No orders of the defined types were placed in this encounter. documented in this encounter [facility] 07-30-2024 Telephone encounter Note Pt called and needs to reschedule her US and OV with [facility], she currently has RSV and the Flu in her house, she now has her records, best call back number is [phone] [facility] 07-30-2024 Miscellaneous Notes Pt called and needs to reschedule her US and OV with [facility], she currently has RSV and the Flu in her house, she now has her records, best call back number is [phone] documented in this encounter [facility] 07-10-2024 History of Present illness Narrative Images from the original note were not included. Ar Gurrola MD Obstetrics and Gynecology Patient: Barbra Claros, : 1995 (28 y.o.) DOS 07/10/24 Exam Date: 07/10/2024 HPI: C/o ongoing RLQ pain. Pt has a complicated history. She had a TLH in 12/10. That was complicted by development of a pelvic abscess. She was transferred to [place]. She underwent CT guided drainage. After 2 weeks sh recovered, but her RLQ pain continues. In 04/11, she was seen at [facility] and CT showed air in the peritoneum. She had exploratory laparotomy and revision of the vag cuff. I montserrat reviewed Dr Bowser op note. He closed the vag apex. The right ovary was shrouded by adhesion which were lysed, thereby freeing the ovary. He descibes the ovary as normal. Since then, she cont to have daily RLQ pain that radiates down the leg and into the back [address] [facility] shows a 6cm complex/septated right ovary Visit Vitals BP 118/78 Wt 156 lb LMP 06/15/2023 BMI 25.56 kg/m OB Status Hysterectomy Smoking Status Some Days BSA 1.81 m OB History Para Term AB Living 4 3 2 1 0 4 SAB IAB Ectopic Multiple Live Births 0 0 0 0 3 # Outcome Date GA Lbr Osmin/2nd Weight Sex Type Anes PTL Lv 4 Term 2021 37w0d Vag-Spont MIKE 3 2020 35w0d Vag-Spont MIKE 2 Term 2014 Vag-Spont MIKE 1 Obstetric Comments Pap: 08/11-Neg DAYAMI: HPV Neg Hysterectomy: 12/10-Benign Medication and Allergies Medication Documentation Review Audit Reviewed by Fe Silveira MA (Relief Charge Nurse) on 07/10/24 at 1424 Medication Order Taking? Sig Documenting Provider Last Dose Status Discontinued 07/10/24 1424 Discontinued 07/10/24 1424 venlafaxine XR (Effexor XR) 75 MG 24 hr capsule [id number] Take 75 mg by mouth in the morning. Take with meals. Ar Gurrola MD Active Allergies Allergen Reactions Chlorpheniramine Anaphylaxis and Other Dextromethorphan Other Dm-Apap-Cpm Angioedema and Swelling Throat Swells Pseudoephedrine Other Past Medical History: Diagnosis Date ADHD (attention deficit hyperactivity disorder) ([facility]) Anxiety History of being hospitalized blood transfusion, bronchitis, pneumonia Ovarian cyst PTSD (post-traumatic stress disorder) ([facility]) Past Surgical History: Procedure Laterality Date COSMETIC SURGERY nose age 4 CT ANGIOGRAM HEART CORONARY 01/13/2024 CT ANGIOGRAM TAVR 01/13/2024 HYSTERECTOMY OTHER SURGICAL HISTORY PELVIC LAPAROSCOPY 11/2019 with ovarian cystectomy SALPINGECTOMY Bilateral VAGINAL DELIVERY x3 2014, 2020, 2021 Physical Exam: Objective Physical Exam Constitutional: Appearance: Normal appearance. Genitourinary: Vulva normal. Vaginal cuff intact. Vaginal tenderness present. No vaginal discharge or bleeding. Right Adnexa: not palpable. Left Adnexa: not palpable. Cervix is absent. Uterus is absent. Pulmonary: Effort: Pulmonary effort is normal. Abdominal: Palpations: Abdomen is soft. Comments: Her pain localizes over the right inguinal ligament. I do not palpate a hernia Neurological: Mental Status: She is alert. Associated Treatments and Results - ICD-10-CM 1. Right lower quadrant pain R10.31 2. Pelvic pain in female R10.2 3. Right ovarian cyst N83.201 She really has 2 different pains: 1) chronic RLQ pain jonas tlocalizes over the inguinal ligament, suspicious for a hernia. But she also has a complex cyst of right ovary, and she is known to have extensive adhesions. 2) vag cuff pain, possibly nerve entrapment vs adhesions. Check sono in my office, consider trigger point inj of cuff. May need laparoscopy/right oophorectomy/NATTY Assessment/Plan No orders of the defined types were placed in this encounter. documented in this encounter [facility] 04-16-2024 Hospital Discharge instructions Corrine Guerra RN - 04/16/2024 11:06 AM EDT Report the following signs or any questions regarding your physical condition to your surgeon immediately: Dr. Soriano @ [phone] Excessive swelling of, or around the wound area. Redness. Temperature of 100 degrees (F) or above. Excessive pain. Continue to use incentive spirometer frequently during the day. May continue to wear abdominal binder. Corrine Guerra RN - 04/16/2024 9:31 AM EDT As tolerated No lifting over 5 pounds until cleared by surgeon No driving until cleared by surgeon and no longer taking Percocet May shower with use of CHG soap over abdomen. Keep abdominal dressing clean, dry and intact No sexual relations tampons and douching for at least 6 if not 8 weeks. Corrine Guerra RN - 04/16/2024 9:30 AM EDT Good nutrition is important when healing from an illness, injury, or surgery. Follow any nutrition recommendations given to you during your hospital stay. If you were given an oral nutrition supplement while in the hospital, continue to take this supplement at home. You can take it with meals, in-between meals, and/or before bedtime. These supplements can be purchased at most local grocery stores, pharmacies, and [employer]-stores. If you have any questions about your diet or nutrition, call the hospital and ask for the dietitian. General diet as tolerated The following attachments cannot be sent through Care Everywhere.Appendectomy: Post-op (Indian)Surgical Site Infections: Prevention: General Info (Indian)documented in this encounter [facility] 04-16-2024 History of Present illness Narrative Comprehensive Nutrition Assessment Type and Reason for Visit: Reassess Nutrition Recommendations/Plan: Continue current diet. Start 4 oz vanilla ensure enlive TID with meals. Malnutrition Assessment: Malnutrition Status: No malnutrition (04/11/24 0732) Context: Acute Illness Findings of the 6 clinical characteristics of malnutrition: Energy Intake: Mild decrease in energy intake (Comment) (NPO) Weight Loss: No significant weight loss Body Fat Loss: No significant body fat loss Muscle Mass Loss: No significant muscle mass loss Fluid Accumulation: No significant fluid accumulation [employer] Intern Strength: Not Performed Nutrition Assessment: Continued increased nutrient needs aeb healing needs post op. Pt just advanced to regular diet. Had nausea yesterday after eating food. + BM 04/15. PO intakes 26-50%. Denied any routine nausea, does have some after walking. Agreeable to ensure enlive with meals (vanilla). States she is feeling better, hopes to d/c today. Nutrition Related Findings: active bowel sounds, + flatus, + BM 04/15. BLE non pitting trace edema Wound Type: Surgical Incision Current Nutrition Intake & Therapies: Average Meal Intake: 26-50% Average Supplements Intake: None Ordered ADULT DIET; Regular ADULT ORAL NUTRITION SUPPLEMENT; Breakfast, Lunch, Dinner; Standard High Calorie/High Protein Oral Supplement Anthropometric Measures: Height: 160 cm (5' 3 ) [place] Body Weight (IBW): 115 lbs (52 kg) Admission Body Weight: 69.4 kg (153 lb) Current Body Weight: 72.4 kg (159 lb 9.8 oz), 140.3 % IBW. Weight Source: Bed Scale Current BMI (kg/m2): 28.3 Usual Body Weight: 69.9 kg (154 lb) (earlier this month) % Weight Change (Calculated): 4.7 Weight Adjustment For: No Adjustment BMI Categories: Overweight (BMI 25.0-29.9) Estimated Daily Nutrient Needs: Energy Requirements Based On: Kcal/kg Weight Used for Energy Requirements: Current Energy (kcal/day): 8397-1140 (20-23.) Weight Used for Protein Requirements: [place] Protein (g/day): 68-78 (1.3-1.5) Method Used for Fluid Requirements: 1 ml/kcal Fluid (ml/day): 1700 Hematology: Recent Labs 04/14/24 0600 04/15/24 0550 WBC 4.6 4.2 HGB 8.8* 9.3* HCT 27.5* 28.5* Chemistry: Recent Labs 04/14/24 0600 04/15/24 0550 NA 139 138 K 3.4* 3.8 CL 104 104 CO2 27 28 GLUCOSE 93 89 BUN 4* 5* CREATININE 0.4* 0.5 MG 1.7 -- CALCIUM 8.4* 8.6 Recent Labs 04/14/24 0600 04/15/24 0550 AST 12 10 ALT 11 10 ALKPHOS 62 75 BILITOT 0.3 <0.2 Nutrition Diagnosis: Increased nutrient needs related to acute injury/trauma as evidenced by wounds Nutrition Interventions: Food and/or Nutrient Delivery: Continue Current Diet, Start Oral Nutrition Supplement Nutrition Education/Counseling: Education initiated Coordination of Nutrition Care: Continue to monitor while inpatient Plan of Care discussed with: patient Goals: Previous Goal Met: Progressing toward Goal(s) Goals: Meet at least 75% of estimated needs Nutrition Monitoring and Evaluation: Behavioral-Environmental Outcomes: None Identified Food/Nutrient Intake Outcomes: Food and Nutrient Intake, Supplement Intake Physical Signs/Symptoms Outcomes: Biochemical Data, Weight, GI Status, Fluid Status or Edema Discharge Planning: Continue current diet, Continue Oral Nutrition Supplement J[address]IA [address], MICHAEL Contact: [phone] Pt requesting to have diet advanced due to tolerated full liquid diet all day, order received from Aubrie LIM. Pt also showered with minimal assist, then moved to room 322 due to leak in patient room. Dressing changed at this time due to being a little wet. Gauze and ABD with paper tape. No drainage noted. Pt states she feels like she is going to have another bowel movement, getting up to bathroom at this time, and denies any other needs at this time. Pt in bed with visitor at bedside. VS and assessment as charted. Pt remains A&Ox4. PRN Percocet administered per pain. Dressing remains clean, dry and intact. Pt denies any other needs at this time and would like to shower later after visitors leave. Call light and bedside table are within reach, care ongoing. Patient ambulating in hallway. Stated she had a BM in her bathroom. Will notify primary RN Progress Note SUBJECTIVE: Patient seen for f/u of Pneumoperitoneum. She resting in chair no distress. Passing flatus but no stool. ROS: Constitutional: negative for fevers, and negative for chills. Respiratory: negative for shortness of breath, negative for cough, and negative for wheezing Cardiovascular: negative for chest pain, and negative for palpitations Gastrointestinal: positive for abdominal pain, negative for nausea,negative for vomiting, negative for diarrhea, and negative for constipation All other systems were reviewed with the patient and are negative unless otherwise stated in HPI OBJECTIVE: Vitals: Vitals: 04/15/24 0741 BP: 119/71 Pulse: 88 Resp: 16 Temp: 97.1 F (36.2 C) SpO2: 99% Weight - Scale: 72 kg (158 lb 11.7 oz) Height: 160 cm (5' 3 ) Weight Wt Readings from Last 3 Encounters: 04/15/24 72 kg (158 lb 11.7 oz) 04/09/24 69.4 kg (153 lb) 04/02/24 69.9 kg (154 lb) Body mass index is 28.12 kg/m . 24HR INTAKE/OUTPUT: Intake/Output Summary (Last 24 hours) at 04/15/2024 0833 Last data filed at 04/15/2024 0521 Gross per 24 hour Intake 2440.65 ml Output 1000 ml Net 1440.65 ml - Exam: GEN: Awake, alert and oriented x3. EYES: EOMI, pupils equal NECK: Supple. No lymphadenopathy. No carotid bruit CVS: regular rate and rhythm, no audible murmur PULM: CTA, no wheezes, rales or rhonchi, no acute respiratory distress ABD: Bowels sounds active. Abdomen is soft. No distention. Generalized surgical site tenderness to palpation. EXT: no edema bilaterally . No calf tenderness. NEURO: Moves all extremities. Motor and sensory are grossly intact SKIN: No rashes. No skin lesions. - Diagnostic Data: Complete Blood Count: Recent Labs 04/13/24 0545 04/14/24 0600 04/15/24 0550 WBC 5.7 4.6 4.2 RBC 3.30* 3.12* 3.25* HGB 9.3* 8.8* 9.3* HCT 29.0* 27.5* 28.5* MCV 87.9 88.1 87.7 MCH 28.2 28.2 28.6 MCHC 32.1 32.0 32.6 RDW 13.4 13.2 13.0 PLT 159 183 204 MPV 10.5 10.3 9.7 Last 3 Blood Glucose: Recent Labs 04/13/24 0545 04/14/24 0600 04/15/24 0550 GLUCOSE 95 93 89 Comprehensive Metabolic Profile: Recent Labs 04/13/24 0545 04/14/24 0600 04/15/24 0550 NA 139 139 138 K 3.3* 3.4* 3.8 CL 104 104 104 CO2 26 27 28 BUN 6 4* 5* CREATININE 0.4* 0.4* 0.5 GLUCOSE 95 93 89 CALCIUM 8.4* 8.4* 8.6 BILITOT 0.4 0.3 <0.2 ALKPHOS 46 62 75 AST 11 12 10 ALT 9* 11 10 Urinalysis: Lab Results Component Value Date/Time NITRU NEGATIVE 04/10/2024 06:47 PM COLORU Yellow 04/10/2024 06:47 PM PHUR 6.0 04/10/2024 06:47 PM PHUR 5.5 07/10/2023 07:07 PM WBCUA 0 TO 2 04/10/2024 06:47 PM RBCUA 0 TO 2 04/10/2024 06:47 PM MUCUS TRACE 04/10/2024 06:47 PM TRICHOMONAS NEGATIVE 02/06/2024 11:17 AM BACTERIA 1+ 04/09/2024 11:56 AM LEUKOCYTESUR NEGATIVE 04/10/2024 06:47 PM UROBILINOGEN Normal 04/10/2024 06:47 PM BILIRUBINUR NEGATIVE 04/10/2024 06:47 PM GLUCOSEU NEGATIVE 04/10/2024 06:47 PM KETUA NEGATIVE 04/10/2024 06:47 PM HgBA1c: No results found for: LABA1C Lactic Acid: Lab Results Component Value Date/Time LACTA 0.6 04/10/2024 08:18 PM LACTA 0.9 04/09/2024 11:45 AM LACTA 1.4 04/02/2024 10:10 AM Troponin: No results for input(s): TROPONINI in the last 72 hours. CRP: No results for input(s): CRP in the last 72 hours. Radiology/Imaging: XR ABDOMEN (KUB) (SINGLE AP VIEW) Final Result Nonspecific, nonobstructed bowel gas pattern. XR ABDOMEN (KUB) (SINGLE AP VIEW) Final Result 1. Nonobstructive bowel gas pattern. 2. Mildly increased colonic gas likely related to minimal ileus. CT ABDOMEN PELVIS W IV CONTRAST Additional Contrast? None Final Result 1. New pneumoperitoneum consistent with perforated viscus. Wall thickening of small bowel loops as well as the sigmoid colon within the pelvis with surrounding inflammatory change. Suspected prominent bowel diverticulum within the right hemipelvis; findings could be related to perforated acute diverticulitis with associated reactive change or enteritis. 2. Hypodensity in the adjacent right hemipelvis measuring 2.9 x 2.3 cm could represent abscess versus infected or inflamed ovarian cyst. 3. Small amount of free pelvic fluid. Findings were discussed with ELA Laird at 8:04 p.m. on 04/10/2024. US NON OB TRANSVAGINAL W DOPPLER Final Result Normal Doppler flow to the ovaries. The right ovary is not as enlarged when compared with the ultrasound from yesterday. ASSESSMENT / PLAN: MEDICAL DECISION MAKING: Primary Problem(s): Pneumoperitoneum Differential diagnoses: Perforated diverticulum, ovarian cyst rupture, abscess Condition is an acute or chronic illness or injury that poses threat to life or bodily function Condition is stable Treatment plan: Appreciate Dr Singh/Dr Soriano-Discussed May Shower Appreciate Dr Bowser-Notes reviewed REHAN. Monitor labs and replace electrolytes Ambulate Up to chair PT/OT/incentive spirometry Imaging: no further imaging studies ordered today Medications: Stop Morphine as needed for pain Stop Fentanyl Decrease Dilaudid Continue Toradol Continue Phenergan Zofran as needed for nausea Stop IV Zosyn Colace bid Medication Monitoring / High Risk Medications: Parenteral administration of controlled substance(s) Nutrition status: at risk for malnutrition Hosting Engineer consult initiated Hospital Prophylaxis: DVT: SCD's Stress Ulcer: Not indicated at this time Disposition: Shared decision making: All test results, treatment options and disposition options were discussed with the patient today Social determinants of health that may impact management: none Code status: Full Code Disposition: Discharge plan is pending [facility] Advanced Care Planning documentation: [x] I have confirmed that the patient's Advance Care Plan is present, Code Status is documented, or surrogate decision maker is listed in the patient's medical record [If yes , STOP HERE] [] The patient's Advance Care Plan is NOT present because: [] I confirmed today that the patient does not wish or was not able to name a surrogate decision maker or provide and advance care plan. [] Hospice care is currently being provided or has been provided within the calendar year. [] I did NOT confirm today the presence of an Advance Care Plan or surrogate decision maker documented within the patient's medical record. [DOES NOT SATISFY [facility] PERFORMANCE] Brandee Rivera APRN - RAPHAEL , KYLEE, VENETIAN BLIND MECHANIC-C Hospitalist Medicine 04/15/2024, 8:33 AM Associated attestation - Nicolette Wyman MD - 04/15/2024 7:18 PM EDT Images from the original note were not included. [address], [address] Attestation Patient: Barbra Claros Date of Admission: 04/10/2024 6:08 PM Hospital Day # 5 Date of Evaluation: 04/15/2024 I personally evaluated and examined the patient [id number] in conjunction with the PA/VENETIAN BLIND MECHANIC and agree with the management and dispostition of the patient. Please see the PA/VENETIAN BLIND MECHANIC's note for full details. My hunter findings are: SUBJECTIVE: Patient seen for follow up of Pneumoperitoneum. Patient seen and examined at the bed side , no new acute events overnight except for some acute nausea after eating some food and no new complains noted. VSS, afebrile. She is passing gas. Notes from nursing staff and Consults had been reviewed, and the overnight progress had been checked with the nursing staff as well. OBJECTIVE: Vitals: Temp: 97.7 F (36.5 C) BP: 109/63 Respirations: 16 Pulse: 77 SpO2: 99 % Weight Wt Readings from Last 3 Encounters: 04/15/24 72 kg (158 lb 11.7 oz) 04/09/24 69.4 kg (153 lb) 04/02/24 69.9 kg (154 lb) Body mass index is 28.12 kg/m . 24HR INTAKE/OUTPUT: Intake/Output Summary (Last 24 hours) at 04/15/2024 1918 Last data filed at 04/15/2024 1301 Gross per 24 hour Intake 2767.19 ml Output 1000 ml Net 1767.19 ml - Exam: GEN: Awake, alert and oriented x3. EYES: EOMI, pupils equal NECK: Supple. No lymphadenopathy. No carotid bruit CVS: regular rate and rhythm, no audible murmur PULM: CTA, no wheezes, rales or rhonchi, no acute respiratory distress ABD: Bowels sounds normal. Abdomen is soft. No distention. no tenderness to palpation. EXT: no edema bilaterally . No calf tenderness. NEURO: Moves all extremities. Motor and sensory are grossly intact SKIN: No rashes. No skin lesions. Dressing is cdi DATA: Complete Blood Count: Recent Labs 04/13/24 0545 04/14/24 0604/15/24 0550 WBC 5.7 4.6 4.2 RBC 3.30* 3.12* 3.25* HGB 9.3* 8.8* 9.3* HCT 29.0* 27.5* 28.5* MCV 87.9 88.1 87.7 RDW 13.4 13.2 13.0 PLT 159 183 204 Recent Labs 04/13/24 0545 04/14/24 0600 10/28/24 0550 NEUTROABS 3.49 2.22 1.62 LYMPHOPCT 25 35 45* LYMPHSABS 1.44 1.62 1.87 MONOPCT 11 10 9 BASOPCT 0 0 0 IMMGRAN 0 0 0 CMP: Lab Results Component Value Date GLUCOSE 89 04/15/2024 BUN 5 (L) 04/15/2024 CREATININE 0.5 04/15/2024 NA 138 04/15/2024 K 3.8 04/15/2024 CALCIUM 8.6 04/15/2024 CL 104 04/15/2024 CO2 28 04/15/2024 BILITOT <0.2 04/15/2024 ALKPHOS 75 04/15/2024 ALT 10 04/15/2024 AST 10 04/15/2024 UA: Lab Results Component Value Date COLORU Yellow 04/10/2024 WBCUA 0 TO 2 04/10/2024 RBCUA 0 TO 2 04/10/2024 LEUKOCYTESUR NEGATIVE 04/10/2024 GLUCOSEU NEGATIVE 04/10/2024 KETUA NEGATIVE 04/10/2024 PROTEINU NEGATIVE 04/10/2024 HGBUR TRACE (A) 04/10/2024 BACTERIA 1+ (A) 04/09/2024 Lactic Acid: Lab Results Component Value Date/Time LACTA 0.6 04/10/2024 08:18 PM LACTA 0.9 04/09/2024 11:45 AM LACTA 1.4 04/02/2024 10:10 AM High Sensitivity Troponin: No results for input(s): TROPHS in the last 72 hours. Radiology/Imaging: XR ABDOMEN (KUB) (SINGLE AP VIEW) Final Result Nonspecific, nonobstructed bowel gas pattern. XR ABDOMEN (KUB) (SINGLE AP VIEW) Final Result 1. Nonobstructive bowel gas pattern. 2. Mildly increased colonic gas likely related to minimal ileus. CT ABDOMEN PELVIS W IV CONTRAST Additional Contrast? None Final Result 1. New pneumoperitoneum consistent with perforated viscus. Wall thickening of small bowel loops as well as the sigmoid colon within the pelvis with surrounding inflammatory change. Suspected prominent bowel diverticulum within the right hemipelvis; findings could be related to perforated acute diverticulitis with associated reactive change or enteritis. 2. Hypodensity in the adjacent right hemipelvis measuring 2.9 x 2.3 cm could represent abscess versus infected or inflamed ovarian cyst. 3. Small amount of free pelvic fluid. Findings were discussed with ELA Laird at 8:04 p.m. on 04/10/2024. US NON OB TRANSVAGINAL W DOPPLER Final Result Normal Doppler flow to the ovaries. The right ovary is not as enlarged when compared with the ultrasound from yesterday. ASSESSMENT: Principal Problem: Pneumoperitoneum Active Problems: Postoperative pain Abdominal pain Anxiety Resolved Problems: * No resolved hospital problems. * PLAN: I agree with the plan as outlined in the VENETIAN BLIND MECHANIC/PA's note Disposition: Discharge plan is pending Please note that this chart was generated using voice recognition [employer] dictation software. Although every effort was made to ensure the accuracy of this automated salad maker, some errors in salad maker may have occurred. Nicolette Wyman MD 04/15/2024 7:18 PM Patient up and ambulating independently in the hallway Assessment and vitals obtained at this time as charted. Pt is A&O x4 and states 9/10 abdominal pain. Pt is c/o nausea and states that she vomited clear fluid. Vitals are WNL. Abdomen is soft and tender with active bowel sounds t/o and pt is passing gas. Abdominal dressing is clean, dry and intact. Pt denies any further needs at this time. Call light within reach, care ongoing. Spoke to Dr. Wyman regarding patient's XR results. New order for phenergan, see MAR. Will see how patient does with this med and go from there. Golf Course Manager to patients bedside at this time due to call light going off. Upon arrival at bedside, patient is sitting on the side of the bed holding her abdomen and is in tears and states she is in a lot of pain, rated 10/10. PRN dilaudid given per patients request. Golf Course Manager called Dr. Wyman and updated him on patients condition, order received for abdominal x-ray. Care ongoing. Golf Course Manager to patients bedside at this time to complete afternoon assessment. When physician underwriter arrived at bedside, patient was in the bathroom standing over toilet and stated she felt like she might get sick. Golf Course Manager assisted patient back to the bed and gave her a bucket. Patient states she tried to eat a few bites of her lunch and that is when she became very nauseous. Golf Course Manager called Dr. Soriano who states to put patient back on a clear liquid diet. Order placed. Reassessment and vitals also obtained at this time. Vitals WNL. Patient is complaining of 9 out of 10 pain, PRN percocet given. PRN zofran also given for nausea. Patient remains alert and oriented x4. Lung sounds clear throughout. Bowel sounds are active and patient continues with reduction in appetite. Abdomen is soft and tender. Patient states she is passing gas. Golf Course Manager assessed incision which is dry and intact with no drainage. Dressing reinforced. Assessment otherwise as charted, see flowsheets. Patient is resting in the bed with call light in reach, denies other needs at this time. Care ongoing. General surgery Discussed with nurse on the phone. Patient continues to complain of some abdominal pain but overall seems to be feeling improved. Tolerating liquid diet without significant nausea or emesis and wishes to have her diet expanded. Still no bowel movement however does continue to pass flatus. -Okay to advance to full liquid diet -Encourage out of bed and ambulation Mary Ellen Soriano DO General Surgery 04/14/24 11:33 AM Patient is requesting to eat some real food. Patient states she is not getting nauseous with the clear liquids. Golf Course Manager called Dr. Soriano about patients request and states her diet can be advanced to full liquid. Order placed for full liquid diet. Occupational Therapy Facility/Department: [facility] Daily Treatment Note NAME: Barbra Claros : 1995 Date of Service: 04/14/2024 Discharge Recommendations: Continue to assess pending progress Patient Diagnosis(es): The primary encounter diagnosis was Pneumoperitoneum. Diagnoses of Perforated diverticulum and Peritoneal cavity free air were also pertinent to this visit. Assessment Activity Tolerance: Patient limited by pain;Patient tolerated treatment well Discharge Recommendations: Continue to assess pending progress Plan Occupational Therapy Plan Times Per Day: Once a day Days Per Week: 7 Days Current Treatment Recommendations: Functional mobility training;Endurance training;Safety education & training;Patient/Caregiver education & training;Self-Care / ADL;Home management training Restrictions Restrictions/Precautions Restrictions/Precautions: Fall Risk;General Precautions Subjective Subjective Subjective: Pt lying in bed upon arrival. Pt agreed to participate in therapy session. Pain: Pt reported abdominal pain however did not rate pain. Objective Vitals ADL Functional Mobility: Stand by assistance Functional Mobility Skilled Clinical Factors: SBA to complete func mob pushing IV pole. Additional Comments: SUP to complete bed mob from supine<>EOB. SUP/SBA to complete sit to stand transfer. Pt declined self care this date. Safety Devices Type of Devices: All fall risk precautions in place;Call light within reach;Left in bed;Nurse notified Patient Education Education Given To: Patient Education Provided: Role of Therapy;Plan of Care;Transfer Training Education Method: Demonstration;Verbal Barriers to Learning: None Education Outcome: Verbalized understanding;Continued education needed;Demonstrated understanding Goals Short Term Goals Time Frame for Short Term Goals: 21 visits Short Term Goal 1: Patient to be educated on d/c folder, AE/DME and home safety to ensure safe and indep return home. Short Term Goal 2: Patient to be mod I with ADL routine to ensure safe and indep return home Short Term Goal 3: Patient to complete functional transfers during ADLs Mod I and with good safety awareness demoed. AM-PAC - ADL Therapy Time Individual Concurrent Group Co-treatment Time In 0820 Time Out 0835 Minutes 15 JOY Desir Physical Therapy Facility/Department: [facility] Daily Treatment Note NAME: Barbra Claros : 1995 Date of Service: 04/14/2024 Discharge Recommendations: Continue to assess pending progress, Home with assist PRN Patient Diagnosis(es): The primary encounter diagnosis was Pneumoperitoneum. Diagnoses of Perforated diverticulum and Peritoneal cavity free air were also pertinent to this visit. Assessment Assessment: Pt. ambulated [id number] without AD and management of IV pole and SBA for safety. Continues with slow cadance and decreased BLE step length. No LOB noted. Abdominal brace donned during treatment. Bed mobility and Transfers:SUP/SBA with additional time needed. Education given on walking throughout the day with good understanding from pt. Reviewed ankle pumps and seated/supine therex she can perform throughout the day. Activity Tolerance: Patient limited by pain;Patient tolerated treatment well Plan Physical Therapy Plan General Plan: 2 times a day 7 days a week Specific Instructions for Next Treatment: Once daily on weekends Current Treatment Recommendations: Strengthening;ROM;Balance training;Functional mobility training;Transfer training;Neuromuscular re-education;Stair training;Gait training;Home exercise program;Safety education & training;Patient/Caregiver education & training;Manual;Endurance training;Therapeutic activities Restrictions Restrictions/Precautions Restrictions/Precautions: Fall Risk, General Precautions, NPO Required Braces or Orthoses?: No Subjective Subjective Subjective: Pt. in bed upon arrival, agreeable to ambulation at this time. Pt. reporting she walked around the room yesterday and sat in the chair and on couch throughout the day. Pain: didn't state Orientation Overall Orientation Status: Within Normal Limits Objective Bed Mobility Training Bed Mobility Training: Yes Overall Level of Assistance: Stand-by assistance;Supervision;Assist X1 Interventions: Verbal cues Rolling: Supervision;Stand-by assistance;Assist X1 Supine to Sit: Supervision;Stand-by assistance;Assist X1 Sit to Supine: Supervision;Stand-by assistance;Assist X1 Scooting: Supervision Transfer Training Transfer Training: Yes Overall Level of Assistance: Stand-by assistance;Assist X1 Interventions: Verbal cues Sit to Stand: Stand-by assistance;Assist X1 Stand to Sit: Stand-by assistance;Assist X1 Gait Gait Training: Yes Overall Level of Assistance: Stand-by assistance;Assist X1 Distance (ft): 230 Feet Assistive Device: None;Other (comment) (management of IV pole) Interventions: Verbal cues Speed/Mellisa: Slow Step Length: Left shortened;Right shortened Gait Abnormalities: Shuffling gait PT Exercises Exercise Treatment: Reviewed ankle pumps and seated/supine therex she can perform throughout the day Safety Devices Type of Devices: All fall risk precautions in place;Call light within reach;Left in bed;Nurse notified Goals Short Term Goals Time Frame for Short Term Goals: 20 days Short Term Goal 1: Patient to complete all transfers with SUP and no LOB to decrease fall risk. Short Term Goal 2: Patient to perform log roll technique for bed mobility with no vc's required for improved mobility. Short Term Goal 3: Patient to ascend/descend 12 steps with HRx1 and SUP with no LOB or fatigue for improved safety with navigating her home. Short Term Goal 4: Patient to ambulate 300ft with no AD, IND with no fatigue or LOB to improve mobility. Education Patient Education Education Given To: Patient Education Provided: Role of Therapy;Plan of Care;Transfer Training Education Method: Verbal Barriers to Learning: None Education Outcome: Verbalized understanding;Continued education needed Therapy Time Individual Concurrent Group Co-treatment Time In 0820 Time Out 0835 Minutes 15 Sandra Morrison PTA Images from the original note were not included. [address] , [place], [place], [address] Progress Note Date: 04/14/2024 Patient name: Barbra Claros Date of admission: 04/10/2024 6:08 PM Date of : 1995 SUBJECTIVE/Last 24 hours update: Patient seen and examined at the bed side , no new acute events overnight except for an episode of what was described as a panic attack due to external family stressors and no new complains noted. VSS, afebrile. Her abdominal pain is getting better and she was ambulating. Notes from nursing staff and Consults had been reviewed, and the overnight progress had been checked with the nursing staff as well. JOANN Resendiz. REVIEW OF SYSTEMS: CONSTITUTIONAL: no fevers, no headcahes EYES: negative for blury vision HEENT: No headaches, No nasal congestion, no difficulty swallowing RESPIRATORY:negative for dyspnea, no wheezing, no Cough CARDIOVASCULAR: negative for chest pain, no palpitations GASTROINTESTINAL: no nausea, no vomiting, no change in bowel habits, positive for abdominal pain ,generalized. GENITOURINARY: negative for dysuria, no hematuria MUSCULOSKELETAL: no joint pains, no muscle aches, no swelling of joints or extremities NEUROLOGICAL: No Weakness or numbness PAST MEDICAL HISTORY: has a past medical history of Acid reflux, Anxiety, Depression, Heartburn, and Seizures ([facility]). PAST SURGICAL HISTORY: has a past surgical history that includes Tubal ligation; cyst removal (Right, 2019); Dilation and curettage of uterus (2018); Upper gastrointestinal endoscopy (N/A, 07/25/2023); Hysterectomy (N/A, 11/20/2023); and laparotomy (N/A, 04/10/2024). SOCIAL HISTORY: reports that she has been smoking cigarettes. She has never used smokeless tobacco. She reports that she does not currently use alcohol. She reports current drug use. Drug: Marijuana ([place]). TOBACCO: reports that she has been smoking cigarettes. She has never used smokeless tobacco. ETOH: reports that she does not currently use alcohol. Reviewed and non-contributory or as noted above and/or in the HPI FAMILY HISTORY: family history includes Breast Cancer in an other family member; Ovarian Cancer in her maternal aunt. Problem Relation Age of Onset Breast Cancer Other Ovarian Cancer Maternal Aunt Reviewed and non-contributory or as noted above and/or in the HPI HOME MEDICATIONS: Prior to Admission medications Medication Sig Start Date End Date Taking? Authorizing Provider acetaminophen (TYLENOL) 500 MG tablet Take 1 tablet by mouth every 6 hours as needed for Pain Yes Provider, MD Ju ibuprofen (ADVIL;MOTRIN) 800 MG tablet Take 1 tablet by mouth every 6 hours as needed for Pain Yes Provider, Historical, escitalopram (LEXAPRO) 10 MG tablet Take 1 tablet by mouth daily Patient not taking: Reported on 02/06/2024 10/31/23 Mickie Barrientos DO ALLERGIES: Chlorpheniramine, Dm-apap-cpm, Dextromethorphan, Other, and Pseudoephedrine OBJECTIVE: Vitals: 04/14/24 0338 04/14/24 0339 04/14/24 0420 04/14/24 0628 BP: (!) 90/56 Pulse: 69 Resp: 18 18 18 Temp: 97.1 F (36.2 C) TempSrc: Temporal SpO2: 99% Weight: 72 kg (158 lb 12.8 oz) Height: Intake/Output Summary (Last 24 hours) at 04/14/2024 0758 Last data filed at 04/14/2024 0637 Gross per 24 hour Intake 3786.02 ml Output -- Net 3786.02 ml PHYSICAL EXAM: General Appearance Alert , awake , not in acute distress HEENT - Head is normocephalic, atraumatic. Lungs - Bilateral equal air entry , no wheezes, rales or rhonchi, aeration good Cardiovascular - Heart sounds are normal. Regular rhythm, normal rate without murmur, gallop or rub. Abdomen - Soft, nondistended, no masses or organomegaly, dressing is cdi, tender to palpation of the abdomen. Neurologic - There are no new focal motor or sensory deficits Skin - No bruising or bleeding on exposed skin area Extremities - No cyanosis, clubbing or edema DIAGNOSTICS: Laboratory Testing: See [facility] EMR for lab data Recent Results (from the past 24 hour(s)) CBC auto differential Collection Time: 04/14/24 6:00 AM Result Value Ref Range WBC 4.6 3.5 - 11.3 k/uL RBC 3.12 (L) 3.95 - 5.11 m/uL Hemoglobin 8.8 (L) 11.9 - 15.1 g/dL Hematocrit 27.5 (L) 36.3 - 47.1 % MCV 88.1 82.6 - 102.9 fL MCH 28.2 25.2 - 33.5 pg MCHC 32.0 28.4 - 34.8 g/dL RDW 13.2 11.8 - 14.4 % Platelets 183 138 - 453 k/uL MPV 10.3 8.1 - 13.5 fL NRBC Automated 0.0 0.0 per 100 WBC Neutrophils % 49 36 - 65 % Lymphocytes % 35 24 - 43 % Monocytes % 10 3 - 12 % Eosinophils % 6 (H) 1 - 4 % Basophils % 0 0 - 2 % Immature Granulocytes % 0 0 % Neutrophils Absolute 2.22 1.50 - 8.10 k/uL Lymphocytes Absolute 1.62 1.10 - 3.70 k/uL Monocytes Absolute 0.47 0.10 - 1.20 k/uL Eosinophils Absolute 0.28 0.00 - 0.44 k/uL Basophils Absolute <0.03 0.00 - 0.20 k/uL Immature Granulocytes Absolute <0.03 0.00 - 0.30 k/uL Current Facility-Administered Medications Medication Dose Route Frequency Provider Last Rate Last Admin ALPRAZolam (XANAX) tablet 0.25 mg 0.25 mg Oral BID PRN Nicolette Wyman MD 0.25 mg at 04/14/24 0623 gabapentin (NEURONTIN) capsule 300 mg 300 mg Oral TID Nicolette Wyman MD venlafaxine (EFFEXOR XR) extended release capsule 75 mg 75 mg Oral Daily with breakfast Nicolette Wyman MD oxyCODONE-acetaminophen (PERCOCET) 5-325 MG per tablet 1 tablet 1 tablet Oral Q4H PRN Nicolette Wyman MD 1 tablet at 04/13/24 1019 Or oxyCODONE-acetaminophen (PERCOCET) 5-325 MG per tablet 2 tablet 2 tablet Oral Q4H PRN Nicolette Wyman MD 2 tablet at 04/14/24 0338 HYDROmorphone (DILAUDID) injection 0.25 mg 0.25 mg IntraVENous Q3H PRN Brandee Rivera APRN - RAPHAEL Or HYDROmorphone (DILAUDID) injection 0.5 mg 0.5 mg IntraVENous Q3H PRN Brandee Rivera APRN - ENTRY LEVEL PARALEGAL 0.5 mg at 04/13/24 0518 dextrose 5 % and 0.45 % NaCl with KCl 20 mEq infusion IntraVENous Continuous Brandee Rivera APRN - ENTRY LEVEL PARALEGAL 100 mL/hr at 04/14/24 0107 New Bag at 04/14/24 0107 sodium chloride flush 0.9 % injection 10 mL 10 mL IntraVENous 2 times per day Aubrie Gray APRN - ENTRY LEVEL PARALEGAL 10 mL at 04/11/24 203 sodium chloride flush 0.9 % injection 10 mL 10 mL IntraVENous PRN Aubrie Gray APRN - ENTRY LEVEL PARALEGAL 0.9 % sodium chloride infusion IntraVENous PRN Aubrie Gray L, CLINICAL QUALITY MANAGER - ENTRY LEVEL PARALEGAL ondansetron (ZOFRAN-ODT) disintegrating tablet 4 mg 4 mg Oral Q8H PRN Tate Grayn L, CLINICAL QUALITY MANAGER - ENTRY LEVEL PARALEGAL Or ondansetron (ZOFRAN) injection 4 mg 4 mg IntraVENous Q6H PRN Aubrie Gray L, CLINICAL QUALITY MANAGER - ENTRY LEVEL PARALEGAL 4 mg at 04/14/24 0113 polyethylene glycol (GLYCOLAX) packet 17 g 17 g Oral Daily PRN Aubrie Gray L, CLINICAL QUALITY MANAGER - ENTRY LEVEL PARALEGAL enoxaparin (LOVENOX) injection 40 mg 40 mg SubCUTAneous Daily Cristiano Singh MD 40 mg at 04/13/24 0956 ketorolac (TORADOL) injection 30 mg 30 mg IntraVENous Q6H PRN Brandee Rivera, CLINICAL QUALITY MANAGER - ENTRY LEVEL PAR[place]GAL 30 mg at 04/13/24 0653 promethazine (PHENERGAN) 12.5mg in sodium chloride 0.9% 50 mL IVPB SOLN 12.5 mg 12.5 mg IntraVENous Q6H PRN Brandee Rivera CLINICAL QUALITY MANAGER - ENTRY LEVEL [place]GAL Stopped at 04/11/24 1354 lactated ringers bolus 1,000 mL 1,000 mL IntraVENous Once Cristiano Singh MD ASSESSMENT: Principal Problem: Pneumoperitoneum Active Problems: Postoperative pain Abdominal pain Anxiety Resolved Problems: * No resolved hospital problems. * PLAN: Primary Problem(s): Pneumoperitoneum Condition is at treatment goal Treatment plan: Continue current treatment Imaging: no further imaging Medications: Continue current meds Medication Monitoring / High Risk Medications: none GS is following OBGYN is following Pain control as indicated Local wound care as per prior Xanax BID PRN for severe anxiety, start Effexor PT OT Above plan discussed with the patient who agreed to the above plan Discussed care plan with nurse after getting their input. Please note that this chart was generated using voice recognition Jinnon dictation software. Although every effort was made to ensure the accuracy of this automated salad maker, some errors in salad maker may have occurred. Nicolette Wyman MD 04/14/2024 7:58 AM Shift assessment and vitals obtained at this time as charted. Blood pressure is slightly low, patient denies any dizziness or lightheadedness but was instructed to call out if she develops any dizziness so she can be assisted up to the bathroom and patient verbalizes understanding of this. Vitals are otherwise WNL. Patient is complaining of 9 out of 10 pain but is not due for pain medications yet. Patient is alert and oriented x4. Lung sounds clear throughout. Abdomen is soft and tender with active bowel sounds throughout. Patient still has a reduced appetite and some nausea. She is passing gas. Dressing to abdominal incision is clean, dry and intact. Assessment otherwise as charted, see flowsheets. Patient is resting in the bed with call light in reach, denies other needs at this time. Care ongoing. Patient is feeling very anxious at this time due to a family situation and feels like she is having a panic attack. Golf Course Manager made Dr. Wyman aware and medication orders were placed. See MAR. Pt in bed awake. VS and assessment as charted. Pt remains A&Ox4. PRN Zofran administered per pain. Dressing remains clean, dry and intact with no drainage noted. Pt denies any other needs at this time. Call light within reach, care ongoing. Shift assessment and vitals obtained at this time as charted. Vitals WNL. Patient is complaining of 8 out of 10 pain in her abdomen, PRN percocet given per patients request. Patient is alert and oriented x4. Lung sounds clear throughout. Bowel sounds are active throughout. Patient does have a reduction in appetite and tenderness to her abdomen. Dressing remains in place to abdomen and is clean, dry and intact, as well as abdominal binder. Assessment otherwise as charted, see flowsheets. Patient is resting in the bed with call light in reach, denies other needs at this time. Care ongoing. General Surgery: Daily Progress Note PATIENT NAME: Barbra Claros TODAY'S DATE: 04/13/2024, 1:38 PM CC: Continues to have right-sided abdominal discomfort SUBJECTIVE: Pt seen and examined at bedside this AM. Overall think she is improving. Continues to have some right-sided abdominal discomfort. But was up walking around today with less pain overall. Patient is passing flatus however no BM. Patient had her first tray of clear liquids which she was able to eat she had some mild nausea afterwards however no emesis OBJECTIVE: VITALS: BP 98/60 Pulse 86 Temp 96.8 F (36 C) (Temporal) Resp 17 Ht 1.6 m (5' 3 ) Wt 72.5 kg (159 lb 12.8 oz) LMP 10/22/2023 SpO2 99% BMI 28.31 kg/m INTAKE/OUTPUT: Intake/Output Summary (Last 24 hours) at 04/13/2024 1338 Last data filed at 04/12/2024 2238 Gross per 24 hour Intake 1503.43 ml Output -- Net 1503.43 ml PHYSICAL EXAM: General Appearance: awake, alert, oriented, in no acute distress HEENT: Normocephalic, atraumatic, mucus membranes moist Heart: Regular rate and rhythm Lungs: Equal chest rise bilaterally, no accessory muscle use Abdomen: Soft, nondistended, appropriately tender Incision: Well-approximated, C/D/I Extremities: No cyanosis, pitting edema, rashes noted. Skin: Skin color, texture, turgor normal. No rashes or lesions. Data: CBC with Differential: Lab Results Component Value Date/Time WBC 5.7 04/13/2024 05:45 AM RBC 3.30 04/13/2024 05:45 AM HGB 9.3 04/13/2024 05:45 AM HCT 29.0 04/13/2024 05:45 AM PLT 159 04/13/2024 05:45 AM MCV 87.9 04/13/2024 05:45 AM MCH 28.2 04/13/2024 05:45 AM MCHC 32.1 04/13/2024 05:45 AM RDW 13.4 04/13/2024 05:45 AM LYMPHOPCT 25 04/13/2024 05:45 AM MONOPCT 11 04/13/2024 05:45 AM EOSPCT 2 04/13/2024 05:45 AM BASOPCT 0 04/13/2024 05:45 AM MONOSABS 0.64 04/13/2024 05:45 AM LYMPHSABS 1.44 04/13/2024 05:45 AM EOSABS 0.10 04/13/2024 05:45 AM BASOSABS <0.03 04/13/2024 05:45 AM BMP: Lab Results Component Value Date/Time NA 139 04/13/2024 05:45 AM K 3.3 04/13/2024 05:45 AM CL 104 04/13/2024 05:45 AM CO2 26 04/13/2024 05:45 AM BUN 6 04/13/2024 05:45 AM CREATININE 0.4 04/13/2024 05:45 AM CALCIUM 8.4 04/13/2024 05:45 AM LABGLOM >90 04/13/2024 05:45 AM LABGLOM >60 07/19/2023 12:05 PM GLUCOSE 95 04/13/2024 05:45 AM Radiology Review: XR ABDOMEN (KUB) (SINGLE AP VIEW) Result Date: 04/13/2024 1. Nonobstructive bowel gas pattern. 2. Mildly increased colonic gas likely related to minimal ileus. US NON OB TRANSVAGINAL W DOPPLER Result Date: 04/10/2024 Normal Doppler flow to the ovaries. The right ovary is not as enlarged when compared with the ultrasound from yesterday. CT ABDOMEN PELVIS W IV CONTRAST Additional Contrast? None Result Date: 04/10/2024 1. New pneumoperitoneum consistent with perforated viscus. Wall thickening of small bowel loops as well as the sigmoid colon within the pelvis with surrounding inflammatory change. Suspected prominent bowel diverticulum within the right hemipelvis; findings could be related to perforated acute diverticulitis with associated reactive change or enteritis. 2. Hypodensity in the adjacent right hemipelvis measuring 2.9 x 2.3 cm could represent abscess versus infected or inflamed ovarian cyst. 3. Small amount of free pelvic fluid. Findings were discussed with ELA Laird at 8:04 p.m. on 04/10/2024. US NON OB TRANSVAGINAL W DOPPLER Result Date: 04/09/2024 1. No sonographic evidence of ovarian torsion. 2. The previously described complex right ovarian cystic lesion now appears to represent two adjacent simple cysts versus less likely a cystic lesion with a thickened internal septation. A separate 2.7 cm mildly heterogeneous area could represent hemorrhagic cyst. Consider 6-8 week pelvic ultrasound to assess change. 3. Prior hysterectomy. CT ABDOMEN PELVIS W IV CONTRAST Additional Contrast? None Result Date: 04/02/2024 1. No acute intra-abdominal or pelvic process. 2. Mild constipation. Appendix well visualized and appears normal. 3. Mild fat containing periumbilical hernia. 4. Status post hysterectomy. US NON OB TRANSVAGINAL W DOPPLER Result Date: 04/02/2024 1. Patient status post hysterectomy. 2. Unremarkable sonographic appearance of the left ovary, without evidence of torsion or mass. 3. No evidence of right ovarian torsion or solid mass. Persistent 3.5 cm complex cystic lesion with the right adnexa, most likely a benign ovarian hemorrhagic cyst, requiring no further follow-up given size of the lesion and patient's premenopausal status. US NON OB TRANSVAGINAL W DOPPLER Result Date: 03/17/2024 1. 3.6 cm complex cystic mass within the right ovary. Findings are nonspecific and may represent hemorrhagic cyst, though tubo-ovarian abscess is not excluded. Recommend correlation with clinical parameters. 2. Normal Doppler flow within the ovaries. 3. Status post hysterectomy. CT ABDOMEN PELVIS W IV CONTRAST Additional Contrast? None Result Date: 03/17/2024 1. No direct evidence for acute infective or inflammatory process. 2. A 4.8 cm right adnexal cyst was previously 2.4 cm. Size and features would support benign functional cyst. Pelvic ultrasound may be considered in light of change in size, patient sentence and fat stranding. ASSESSMENT: Active Hospital Problems Diagnosis Date Noted Pneumoperitoneum [K66.8] 04/10/2024 Postoperative pain [G89.18] 12/12/2023 28 y.o. female status post exploratory laparotomy, appendectomy, repair of vaginal cuff for pneumoperitoneum Plan: Labs and imaging reviewed Patient felt some slight nausea however tolerating clear liquids, will continue clear liquid diet for now Continue as needed pain and nausea control, PO>IV Encourage up out of bed, encourage ambulation Encourage deep breathing, incentive spirometry Daily dressing change Dr. Soriano at patients bedside at this time and changed dressing to abdominal incision. Occupational Therapy Facility/Department: [facility] Daily Treatment Note NAME: Barbra Claros : 1995 Date of Service: 04/13/2024 Discharge Recommendations: Continue to assess pending progress Patient Diagnosis(es): The primary encounter diagnosis was Pneumoperitoneum. Diagnoses of Perforated diverticulum and Peritoneal cavity free air were also pertinent to this visit. Assessment Activity Tolerance: Patient limited by pain Discharge Recommendations: Continue to assess pending progress Plan Occupational Therapy Plan Times Per Day: Once a day Days Per Week: 7 Days Current Treatment Recommendations: Functional mobility training;Endurance training;Safety education & training;Patient/Caregiver education & training;Self-Care / ADL;Home management training Restrictions Restrictions/Precautions Restrictions/Precautions: Fall Risk;General Precautions;NPO Subjective Subjective Subjective: Pt lying in bed upon arrival. Pt agreed to participate in therapy session. Pain: Pt reported abdominal pain however did not rate pain. Objective Vitals ADL Toileting: Supervision Toileting Skilled Clinical Factors: SUP to complete roselia care and clothing mgmt. Functional Mobility: Stand by assistance;Supervision Functional Mobility Skilled Clinical Factors: SBA/SUP to complete func mob pushing IV pole. Additional Comments: SUP to complete bed mob from supine<>EOB. SUP/SBA to complete sit to stand transfer. Pt declined self care stating I washed up on my own this morning . Safety Devices Type of Devices: All fall risk precautions in place;Call light within reach;Left in bed;Nurse notified Patient Education Education Given To: Patient Education Provided: Role of Therapy;Plan of Care;Transfer Training Education Method: Demonstration;Verbal Barriers to Learning: None Education Outcome: Verbalized understanding;Continued education needed;Demonstrated understanding Goals Short Term Goals Time Frame for Short Term Goals: 21 visits Short Term Goal 1: Patient to be educated on d/c folder, AE/DME and home safety to ensure safe and indep return home. Short Term Goal 2: Patient to be mod I with ADL routine to ensure safe and indep return home Short Term Goal 3: Patient to complete functional transfers during ADLs Mod I and with good safety awareness demoed. AM-PAC - ADL Therapy Time Individual Concurrent Group Co-treatment Time In 957 Time Out 1014 Minutes 16 JOY Desir Physical Therapy Facility/Department: [facility] Daily Treatment Note NAME: Barbra Claros : 1995 Date of Service: 04/13/2024 Discharge Recommendations: Continue to assess pending progress, Home with assist PRN Patient Diagnosis(es): The primary encounter diagnosis was Pneumoperitoneum. Diagnoses of Perforated diverticulum and Peritoneal cavity free air were also pertinent to this visit. Assessment Assessment: Pt. ambulated [id number] without AD and management of IV pole and SBA for safety. Continues with slow cadance and decreased BLE step length. No LOB noted. Abdominal brace donned during treatment. Bed mobility/Transfers:SUP/SBA with additional time needed. Commode use and transfer--SUP. Education given on walking throughout the day with good understanding from pt. Activity Tolerance: Patient limited by pain Plan Physical Therapy Plan General Plan: 2 times a day 7 days a week Specific Instructions for Next Treatment: Once daily on weekends Current Treatment Recommendations: Strengthening;ROM;Balance training;Functional mobility training;Transfer training;Neuromuscular re-education;Stair training;Gait training;Home exercise program;Safety education & training;Patient/Caregiver education & training;Manual;Endurance training;Therapeutic activities Restrictions Restrictions/Precautions Restrictions/Precautions: Fall Risk, General Precautions, NPO Required Braces or Orthoses?: No Subjective Subjective Subjective: Pt. in bed upon arrival, agreeable to ambulation at this time Pain: reported pain but didn't give a rating, just recieved pain medication Orientation Overall Orientation Status: Within Normal Limits Objective Bed Mobility Training Bed Mobility Training: Yes Overall Level of Assistance: Stand-by assistance;Supervision;Assist X1 Interventions: Verbal cues Rolling: Supervision;Stand-by assistance;Assist X1 Supine to Sit: Supervision;Stand-by assistance;Assist X1 Sit to Supine: Supervision;Stand-by assistance;Assist X1 Scooting: Supervision Transfer Training Transfer Training: Yes Overall Level of Assistance: Stand-by assistance;Assist X1 Interventions: Verbal cues Sit to Stand: Stand-by assistance;Assist X1 Stand to Sit: Stand-by assistance;Assist X1 Toilet Transfer: Supervision;Assist X1 Gait Gait Training: Yes Overall Level of Assistance: Stand-by assistance;Assist X1 Distance (ft): 230 Feet Assistive Device: None;Other (comment) (Management of IV pole) Interventions: Verbal cues Speed/Mellisa: Slow Step Length: Left shortened;Right shortened Gait Abnormalities: Shuffling gait Safety Devices Type of Devices: All fall risk precautions in place;Call light within reach;Left in bed;Nurse notified Goals Short Term Goals Time Frame for Short Term Goals: 20 days Short Term Goal 1: Patient to complete all transfers with SUP and no LOB to decrease fall risk. Short Term Goal 2: Patient to perform log roll technique for bed mobility with no vc's required for improved mobility. Short Term Goal 3: Patient to ascend/descend 12 steps with HRx1 and SUP with no LOB or fatigue for improved safety with navigating her home. Short Term Goal 4: Patient to ambulate 300ft with no AD, IND with no fatigue or LOB to improve mobility. Education Patient Education Education Given To: Patient Education Provided: Role of Therapy;Plan of Care;Transfer Training Education Provided Comments: Log roll technique for bed mobility Education Method: Verbal Barriers to Learning: None Education Outcome: Verbalized understanding;Continued education needed Therapy Time Individual Concurrent Group Co-treatment Time In 957 Time Out 1014 Minutes 16 Sandra Morrison PTA Golf Course Manager made aware by Dr. Wyman that patient requesting prn Zofran and prn Toradol. VS and assessment as charted. Pt remains A&Ox4. Dressing remains clean,dry and intact. Medications given as requested. Pt assisted to bathroom, independent after setup and provide warm wipes per request. Denies any other needs at this time. Images from the original note were not included. [address] , [place], [place], [address] Progress Note Date: 04/13/2024 Patient name: Barbra Claros Date of admission: 04/10/2024 6:08 PM Date of : 1995 SUBJECTIVE/Last 24 hours update: Patient seen and examined at the bed side , no new acute events overnight and no new complains noted. VSS, afebrile. She continues to have some abdominal pain. She is passing gas/burping. She did get up this morning. Notes from nursing staff and Consults had been reviewed, and the overnight progress had been checked with the nursing staff as well. REVIEW OF SYSTEMS: CONSTITUTIONAL: no fevers, no headcahes EYES: negative for blury vision HEENT: No headaches, No nasal congestion, no difficulty swallowing RESPIRATORY:negative for dyspnea, no wheezing, no Cough CARDIOVASCULAR: negative for chest pain, no palpitations GASTROINTESTINAL: no nausea, no vomiting, no change in bowel habits, positive for abdominal pain GENITOURINARY: negative for dysuria, no hematuria MUSCULOSKELETAL: no joint pains, no muscle aches, no swelling of joints or extremities NEUROLOGICAL: No Weakness or numbness PAST MEDICAL HISTORY: has a past medical history of Acid reflux, Anxiety, Depression, Heartburn, and Seizures (HCC). PAST SURGICAL HISTORY: has a past surgical history that includes Tubal ligation; cyst removal (Right, 2019); Dilation and curettage of uterus (2018); Upper gastrointestinal endoscopy (N/A, 07/25/2023); Hysterectomy (N/A, 11/20/2023); and laparotomy (N/A, 04/10/2024). SOCIAL HISTORY: reports that she has been smoking cigarettes. She has never used smokeless tobacco. She reports that she does not currently use alcohol. She reports current drug use. Drug: Marijuana ([place]). TOBACCO: reports that she has been smoking cigarettes. She has never used smokeless tobacco. ETOH: reports that she does not currently use alcohol. Reviewed and non-contributory or as noted above and/or in the HPI FAMILY HISTORY: family history includes Breast Cancer in an other family member; Ovarian Cancer in her maternal aunt. Problem Relation Age of Onset Breast Cancer Other Ovarian Cancer Maternal Aunt Reviewed and non-contributory or as noted above and/or in the HPI HOME MEDICATIONS: Prior to Admission medications Medication Sig Start Date End Date Taking? Authorizing Provider acetaminophen (TYLENOL) 500 MG tablet Take 1 tablet by mouth every 6 hours as needed for Pain Yes Provider, MD Ju ibuprofen (ADVIL;MOTRIN) 800 MG tablet Take 1 tablet by mouth every 6 hours as needed for Pain Yes Provider, Ju, escitalopram (LEXAPRO) 10 MG tablet Take 1 tablet by mouth daily Patient not taking: Reported on 02/06/2024 10/31/23 Mickie Barrientos DO ALLERGIES: Chlorpheniramine, Dm-apap-cpm, Dextromethorphan, Other, and Pseudoephedrine OBJECTIVE: Vitals: 04/13/24 0215 04/13/24 0315 04/13/24 0518 04/13/24 0605 BP: Pulse: Resp: 18 18 16 Temp: TempSrc: SpO2: Weight: 72.5 kg (159 lb 12.8 oz) Height: Intake/Output Summary (Last 24 hours) at 04/13/2024 0641 Last data filed at 04/12/2024 2238 Gross per 24 hour Intake 1503.43 ml Output -- Net 1503.43 ml PHYSICAL EXAM: General Appearance Alert , awake , not in acute distress HEENT - Head is normocephalic, atraumatic. Lungs - Bilateral equal air entry , no wheezes, rales or rhonchi, aeration good Cardiovascular - Heart sounds are normal. Regular rhythm, normal rate without murmur, gallop or rub. Abdomen - Soft, nontender, nondistended, no masses or organomegaly, dressing is cdi Neurologic - There are no new focal motor or sensory deficits Skin - No bruising or bleeding on exposed skin area Extremities - No cyanosis, clubbing or edema DIAGNOSTICS: Laboratory Testing: See [facility] EMR for lab data Recent Results (from the past 24 hour(s)) CBC auto differential Collection Time: 04/13/24 5:45 AM Result Value Ref Range WBC 5.7 3.5 - 11.3 k/uL RBC 3.30 (L) 3.95 - 5.11 m/uL Hemoglobin 9.3 (L) 11.9 - 15.1 g/dL Hematocrit 29.0 (L) 36.3 - 47.1 % MCV 87.9 82.6 - 102.9 fL MCH 28.2 25.2 - 33.5 pg MCHC 32.1 28.4 - 34.8 g/dL RDW 13.4 11.8 - 14.4 % Platelets 159 138 - 453 k/uL MPV 10.5 8.1 - 13.5 fL NRBC Automated 0.0 0.0 per 100 WBC Neutrophils % 62 36 - 65 % Lymphocytes % 25 24 - 43 % Monocytes % 11 3 - 12 % Eosinophils % 2 1 - 4 % Basophils % 0 0 - 2 % Immature Granulocytes % 0 0 % Neutrophils Absolute 3.49 1.50 - 8.10 k/uL Lymphocytes Absolute 1.44 1.10 - 3.70 k/uL Monocytes Absolute 0.64 0.10 - 1.20 k/uL Eosinophils Absolute 0.10 0.00 - 0.44 k/uL Basophils Absolute <0.03 0.00 - 0.20 k/uL Immature Granulocytes Absolute <0.03 0.00 - 0.30 k/uL Current Facility-Administered Medications Medication Dose Route Frequency Provider Last Rate Last Admin HYDROmorphone (DILAUDID) injection 0.25 mg 0.25 mg IntraVENous Q3H PRN Brandee Rivera CLINICAL QUALITY MANAGER - ENTRY LEVEL [employer] Or HYDROmorphone (DILAUDID) injection 0.5 mg 0.5 mg IntraVENous Q3H PRN Brandee Rivera CLINICAL QUALITY MANAGER - ENTRY LEVEL [employer] 0.5 mg at 04/13/24 0518 dextrose 5 % and 0.45 % NaCl with KCl 20 mEq infusion IntraVENous Continuous Brandee Rivera CLINICAL QUALITY MANAGER - ENTRY LEVEL [employer] 100 mL/hr at 04/13/24 0517 New Bag at 04/13/24 0517 sodium chloride flush 0.9 % injection 10 mL 10 mL IntraVENous 2 times per day Aubrie Gray CLINICAL QUALITY MANAGER - ENTRY LEVEL [employer] 10 mL at 04/11/24 203 sodium chloride flush 0.9 % injection 10 mL 10 mL IntraVENous PRN Aubrie Gray, CLINICAL QUALITY MANAGER - ENTRY LEVEL [employer] 0.9 % sodium chloride infusion IntraVENous PRN Aubrie Gray, CLINICAL QUALITY MANAGER - ENTRY LEVEL [employer] potassium chloride (KLOR-CON M) extended release tablet 40 mEq 40 mEq Oral PRN Isaac, Aubrie L, CLINICAL QUALITY MANAGER - ENTRY LEVEL [employer] Or potassium bicarb-citric acid (EFFER-K) effervescent tablet 40 mEq 40 mEq Oral PRN Isaac, Aubrie L, CLINICAL QUALITY MANAGER - ENTRY LEVEL [employer] Or potassium chloride 10 mEq/100 mL IVPB (Peripheral Line) 10 mEq IntraVENous PRN Isaac, Aubrie L, CLINICAL QUALITY MANAGER - ENTRY LEVEL [employer] ondansetron (ZOFRAN-ODT) disintegrating tablet 4 mg 4 mg Oral Q8H PRN Isaac, Aubrie L, CLINICAL QUALITY MANAGER - ENTRY LEVEL [employer] Or ondansetron (ZOFRAN) injection 4 mg 4 mg IntraVENous Q6H PRN Isaac, Aubrie L, CLINICAL QUALITY MANAGER - ENTRY LEVEL [employer] 4 mg at 04/12/24 2235 polyethylene glycol (GLYCOLAX) packet 17 g 17 g Oral Daily PRN Isaac, Aubrie L, CLINICAL QUALITY MANAGER - ENTRY LEVEL [employer] enoxaparin (LOVENOX) injection 40 mg 40 mg SubCUTAneous Daily Cristiano Singh MD 40 mg at 04/12/24 0915 ketorolac (TORADOL) injection 30 mg 30 mg IntraVENous Q6H PRN Brandee Rivera, CLINICAL QUALITY MANAGER - ENTRY LEVEL [employer] 30 mg at 04/13/24 0018 promethazine (PHENERGAN) 12.5mg in sodium chloride 0.9% 50 mL IVPB SOLN 12.5 mg 12.5 mg IntraVENous Q6H PRN Brandee Rivera CLINICAL QUALITY MANAGER - ENTRY LEVEL [employer] Stopped at 04/11/24 1354 lactated ringers bolus 1,000 mL 1,000 mL IntraVENous Once Cristiano Singh MD ASSESSMENT: Principal Problem: Pneumoperitoneum Active Problems: Postoperative pain Resolved Problems: * No resolved hospital problems. * PLAN: Primary Problem(s): Pneumoperitoneum Condition is at treatment goal Treatment plan: Continue current treatment Imaging: KUB Medications: Continue current meds Medication Monitoring / High Risk Medications: none GS is following OBGYN is following Pain control as indicated Local wound care PT OT Above plan discussed with the patient who agreed to the above plan Discussed care plan with nurse after getting their input. Please note that this chart was generated using voice recognition Jinnon dictation software. Although every effort was made to ensure the accuracy of this automated salad maker, some errors in salad maker may have occurred. Nicolette Wyman MD 04/13/2024 6:41 AM Pt in bed finishing up conversation on phone. VS and assessment as charted. Pt is A&Ox4. PRN Dilaudid administered per pain. Dressing remains clean, dry, and intact. No drainage noted. Pt denies any other needs at this time and has call light within reach, care ongoing. Brandee Amin and Dr Frances informed of pharmacy call received per RN concerning Dilaudid,Morphine and Fentanyl all ordered for patient. Patient states she prefers Dilaudid relieves her pain best, Brandee and Dr Frances informed. Physical Therapy Facility/Department: [facility] Daily Treatment Note NAME: Barbra Claros : 1995 Date of Service: 04/12/2024 Discharge Recommendations: Continue to assess pending progress, Home with assist PRN Patient Diagnosis(es): The primary encounter diagnosis was Pneumoperitoneum. Diagnoses of Perforated diverticulum and Peritoneal cavity free air were also pertinent to this visit. Assessment Assessment: Pt. ambulated [id number] with no AD and management of IV pole and CGA/SBA for safety. Abdominal brace donned during treatment. Bed mobility:CGA. Transfers:CGA/Cipriano with additional time needed. Commode use and transfer. [place] slow shuffled cadance and decreased BLE step length. No LOB or unsteadiness noted. Pt. did require multiple standing RB d/t pain throughout ambulation. Activity Tolerance: Patient limited by pain Plan Physical Therapy Plan General Plan: 2 times a day 7 days a week Specific Instructions for Next Treatment: Once daily on weekends Current Treatment Recommendations: Strengthening;ROM;Balance training;Functional mobility training;Transfer training;Neuromuscular re-education;Stair training;Gait training;Home exercise program;Safety education & training;Patient/Caregiver education & training;Manual;Endurance training;Therapeutic activities Restrictions Restrictions/Precautions Restrictions/Precautions: Fall Risk, General Precautions, NPO Required Braces or Orthoses?: No Subjective Subjective Subjective: Pt. in bed upon arrival, agreeable to ambulation at this time Pain: 9/10 abdominal pain Orientation Overall Orientation Status: Within Normal Limits Cognition Overall Cognitive Status: WNL Objective Bed Mobility Training Bed Mobility Training: Yes Overall Level of Assistance: Contact-guard assistance;Assist X1 Interventions: Verbal cues Rolling: Contact-guard assistance;Assist X1 Supine to Sit: Contact-guard assistance;Assist X1 Sit to Supine: Contact-guard assistance;Assist X1 Scooting: Contact-guard assistance;Assist X1;Additional time Transfer Training Transfer Training: Yes Overall Level of Assistance: Minimum assistance;Assist X1;Contact-guard assistance;Additional time Interventions: Verbal cues Sit to Stand: Minimum assistance;Assist X1;Additional time;Contact-guard assistance Stand to Sit: Contact-guard assistance;Minimum assistance;Additional time;Assist X1 Toilet Transfer: Contact-guard assistance;Assist X1;Minimum assistance Gait Gait Training: Yes Overall Level of Assistance: Contact-guard assistance;Assist X1;Additional time;Stand-by assistance Distance (ft): 180 Feet Assistive Device: None;Other (comment) (Management of IV pole) Interventions: Verbal cues Speed/Mellisa: Slow Step Length: Left shortened;Right shortened Gait Abnormalities: Shuffling gait Safety Devices Type of Devices: All fall risk precautions in place;Call light within reach;Bed alarm in place;Left in bed;Nurse notified Goals Short Term Goals Time Frame for Short Term Goals: 20 days Short Term Goal 1: Patient to complete all transfers with SUP and no LOB to decrease fall risk. Short Term Goal 2: Patient to perform log roll technique for bed mobility with no vc's required for improved mobility. Short Term Goal 3: Patient to ascend/descend 12 steps with HRx1 and SUP with no LOB or fatigue for improved safety with navigating her home. Short Term Goal 4: Patient to ambulate 300ft with no AD, IND with no fatigue or LOB to improve mobility. Education Patient Education Education Given To: Patient Education Provided: Role of Therapy;Plan of Care;Transfer Training Education Provided Comments: Log roll technique for bed mobility Education Method: Verbal Barriers to Learning: None Education Outcome: Verbalized understanding;Continued education needed Therapy Time Individual Concurrent Group Co-treatment Time In 1326 Time Out 1345 Minutes 19 Sandra Morrison PTA Occupational Therapy Facility/Department: [facility] Daily Treatment Note NAME: Barbra Claros : 1995 Date of Service: 04/12/2024 Discharge Recommendations: Continue to assess pending progress Patient Diagnosis(es): The primary encounter diagnosis was Pneumoperitoneum. Diagnoses of Perforated diverticulum and Peritoneal cavity free air were also pertinent to this visit. Assessment Activity Tolerance: Patient limited by pain Plan Occupational Therapy Plan Times Per Day: Once a day Days Per Week: 7 Days Current Treatment Recommendations: Functional mobility training;Endurance training;Safety education & training;Patient/Caregiver education & training;Self-Care / ADL;Home management training Subjective Subjective Subjective: Pt lying in bed upon arrival, just received pain meds and agreeable to therapy session. Pain: Reports pain in abdomen, but just received pain meds, so tolerable. Did not give rating. Orientation Overall Orientation Status: Within Normal Limits Pain: 9/10 pain and just recieved medication Cognition Overall Cognitive Status: WNL Objective ADL UE Dressing: Maximum assistance UE Dressing Skilled Clinical Factors: Max A to don/doff and adjust abdominal binder. Declined participation in additional ADLs this date. Pt reports she has multiple family members at home with her that can assist with LB dressing and IADLs as needed during recovery. Functional Mobility Skilled Clinical Factors: Min A for bed mobility from supine to sitting EOB. CGA for sit to stand tfer and functional mobility. Tolerated ~120' ambulation with bilateral support from IV pole. Standing rest break required nursing home through walk. MIn A for return to bed sitting>supine for support of LEs. Safety Devices Type of Devices: All fall risk precautions in place;Call light within reach;Bed alarm in place;Left in bed;Nurse notified Patient Education Education Given To: Patient Education Provided: Role of Therapy;Plan of Care;Mobility Training;Transfer Training;Equipment Education Method: Demonstration;Verbal Barriers to Learning: None Education Outcome: Verbalized understanding;Continued education needed;Demonstrated understanding Goals Short Term Goals Time Frame for Short Term Goals: 21 visits Short Term Goal 1: Patient to be educated on d/c folder, AE/DME and home safety to ensure safe and indep return home. Short Term Goal 2: Patient to be mod I with ADL routine to ensure safe and indep return home Short Term Goal 3: Patient to complete functional transfers during ADLs Mod I and with good safety awareness demoed. Therapy Time Individual Concurrent Group Co-treatment Time In 1050 Time Out 1107 Minutes 17 GLENN Goodwin OTR/L Physical Therapy Facility/Department: [facility] Daily Treatment Note NAME: Barbra Claros : 1995 Date of Service: 04/12/2024 Discharge Recommendations: Continue to assess pending progress, Home with assist PRN Patient Diagnosis(es): The primary encounter diagnosis was Pneumoperitoneum. Diagnoses of Perforated diverticulum and Peritoneal cavity free air were also pertinent to this visit. Assessment Assessment: Pt. ambulated [id number] with no AD and management of IV pole and CGA/SBA for safety. Abdominal brace donned during treatment. Bed mobility:MinAx1. Transfers:CGA/Cipriano with additional time needed. Demoes slow shuffled cadance and decreased BLE step length. No LOB or unsteadiness noted. Pt. did require 1 standing RB for adjustment of brace and mild fatigue. Will continue to progress as tolerated. Activity Tolerance: Patient limited by pain Plan Physical Therapy Plan General Plan: 2 times a day 7 days a week Specific Instructions for Next Treatment: Once daily on weekends Current Treatment Recommendations: Strengthening;ROM;Balance training;Functional mobility training;Transfer training;Neuromuscular re-education;Stair training;Gait training;Home exercise program;Safety education & training;Patient/Caregiver education & training;Manual;Endurance training;Therapeutic activities Restrictions Restrictions/Precautions Restrictions/Precautions: Fall Risk, General Precautions, NPO Required Braces or Orthoses?: No Subjective Subjective Subjective: Pt. in bed upon arrival, RN present, agreeable to ambulation at this time Pain: 9/10 pain and just recieved medication Orientation Overall Orientation Status: Within Normal Limits Objective Bed Mobility Training Bed Mobility Training: Yes Overall Level of Assistance: Minimum assistance;Contact-guard assistance;Assist X1 Interventions: Verbal cues Rolling: Minimum assistance;Additional time;Assist X1;Contact-guard assistance Supine to Sit: Minimum assistance;Assist X1;Additional time Scooting: Contact-guard assistance;Assist X1;Additional time Transfer Training Transfer Training: Yes (abdominal brace on when walking) Overall Level of Assistance: Minimum assistance;Assist X1;Contact-guard assistance;Additional time Interventions: Verbal cues Sit to Stand: Minimum assistance;Assist X1;Additional time;Contact-guard assistance Stand to Sit: Contact-guard assistance;Minimum assistance;Additional time;Assist X1 Gait Gait Training: Yes Overall Level of Assistance: Contact-guard assistance;Assist X1;Additional time;Stand-by assistance Distance (ft): 180 Feet Assistive Device: None;Other (comment) (Management of IV pole) Interventions: Verbal cues Speed/Mellisa: Slow Step Length: Left shortened;Right shortened Gait Abnormalities: Shuffling gait Safety Devices Type of Devices: All fall risk precautions in place;Call light within reach;Bed alarm in place;Left in bed;Nurse notified Goals Short Term Goals Time Frame for Short Term Goals: 20 days Short Term Goal 1: Patient to complete all transfers with SUP and no LOB to decrease fall risk. Short Term Goal 2: Patient to perform log roll technique for bed mobility with no vc's required for improved mobility. Short Term Goal 3: Patient to ascend/descend 12 steps with HRx1 and SUP with no LOB or fatigue for improved safety with navigating her home. Short Term Goal 4: Patient to ambulate 300ft with no AD, IND with no fatigue or LOB to improve mobility. Education Patient Education Education Given To: Patient Education Provided: Role of Therapy;Plan of Care;Transfer Training Education Provided Comments: Log roll technique for bed mobility Education Method: Verbal Barriers to Learning: None Education Outcome: Verbalized understanding;Continued education needed Therapy Time Individual Concurrent Group Co-treatment Time In 1040 Time Out 1106 Minutes 26 Sandra Morrison PTA Progress Note SUBJECTIVE: Patient seen for f/u of Pneumoperitoneum. She resting in bed complaints of pain 8-910. Passed flatus. No BM. ROS: Constitutional: negative for fevers, and negative for chills. Respiratory: negative for shortness of breath, negative for cough, and negative for wheezing Cardiovascular: negative for chest pain, and negative for palpitations Gastrointestinal: positive for abdominal pain, negative for nausea,negative for vomiting, negative for diarrhea, and negative for constipation All other systems were reviewed with the patient and are negative unless otherwise stated in HPI OBJECTIVE: Vitals: Vitals: 04/12/24 0640 BP: 102/64 Pulse: 75 Resp: 14 Temp: 97.9 F (36.6 C) SpO2: 97% Weight - Scale: 73.2 kg (161 lb 6.4 oz) Height: 160 cm (5' 3 ) Weight Wt Readings from Last 3 Encounters: 04/12/24 73.2 kg (161 lb 6.4 oz) 04/09/24 69.4 kg (153 lb) 04/02/24 69.9 kg (154 lb) Body mass index is 28.59 kg/m . 24HR INTAKE/OUTPUT: Intake/Output Summary (Last 24 hours) at 04/12/2024 0654 Last data filed at 04/12/2024 0356 Gross per 24 hour Intake 2171 ml Output 850 ml Net 1321 ml - Exam: GEN: Awake, alert and oriented x3. EYES: EOMI, pupils equal NECK: Supple. No lymphadenopathy. No carotid bruit CVS: regular rate and rhythm, no audible murmur PULM: CTA, no wheezes, rales or rhonchi, no acute respiratory distress ABD: Bowels sounds hypoactive. Abdomen is soft. No distention. Generalized surgical site tenderness to palpation. EXT: no edema bilaterally . No calf tenderness. NEURO: Moves all extremities. Motor and sensory are grossly intact SKIN: No rashes. No skin lesions. - Diagnostic Data: Complete Blood Count: Recent Labs 04/09/24 1145 04/10/24 1847 04/11/24 0530 WBC 6.0 9.1 9.4 RBC 4.16 4.16 3.94* HGB 11.7* 11.7* 11.1* HCT 36.7 36.3 34.4* MCV 88.2 87.3 87.3 MCH 28.1 28.1 28.2 MCHC 31.9 32.2 32.3 RDW 13.5 13.8 13.7 PLT 188 192 170 MPV 10.1 10.5 10.8 Last 3 Blood Glucose: Recent Labs 04/09/24 1145 04/10/24 18404/11/24 0530 GLUCOSE 73* 88 136* Comprehensive Metabolic Profile: Recent Labs 04/09/24 1145 04/10/24 1847 04/11/24 0530 NA 140 139 137 K 4.1 3.7 4.0 CL 105 103 105 CO2 27 26 23 BUN 8 11 9 CREATININE 0.5 0.5 0.5 GLUCOSE 73* 88 136* CALCIUM 9.0 9.0 8.4* BILITOT -- -- 0.7 ALKPHOS -- -- 49 AST -- -- 13 ALT -- -- 13 Urinalysis: Lab Results Component Value Date/Time NITRU NEGATIVE 04/10/2024 06:47 PM COLORU Yellow 04/10/2024 06:47 PM PHUR 6.0 04/10/2024 06:47 PM PHUR 5.5 07/10/2023 07:07 PM WBCUA 0 TO 2 04/10/2024 06:47 PM RBCUA 0 TO 2 04/10/2024 06:47 PM MUCUS TRACE 04/10/2024 06:47 PM TRICHOMONAS NEGATIVE 02/06/2024 11:17 AM BACTERIA 1+ 04/09/2024 11:56 AM LEUKOCYTESUR NEGATIVE 04/10/2024 06:47 PM UROBILINOGEN Normal 04/10/2024 06:47 PM BILIRUBINUR NEGATIVE 04/10/2024 06:47 PM GLUCOSEU NEGATIVE 04/10/2024 06:47 PM KETUA NEGATIVE 04/10/2024 06:47 PM HgBA1c: No results found for: LABA1C Lactic Acid: Lab Results Component Value Date/Time LACTA 0.6 04/10/2024 08:18 PM LACTA 0.9 04/09/2024 11:45 AM LACTA 1.4 04/02/2024 10:10 AM Troponin: No results for input(s): TROPONINI in the last 72 hours. CRP: No results for input(s): CRP in the last 72 hours. Radiology/Imaging: CT ABDOMEN PELVIS W IV CONTRAST Additional Contrast? None Final Result 1. New pneumoperitoneum consistent with perforated viscus. Wall thickening of small bowel loops as well as the sigmoid colon within the pelvis with surrounding inflammatory change. Suspected prominent bowel diverticulum within the right hemipelvis; findings could be related to perforated acute diverticulitis with associated reactive change or enteritis. 2. Hypodensity in the adjacent right hemipelvis measuring 2.9 x 2.3 cm could represent abscess versus infected or inflamed ovarian cyst. 3. Small amount of free pelvic fluid. Findings were discussed with ELA Laird at 8:04 p.m. on 04/10/2024. US NON OB TRANSVAGINAL W DOPPLER Final Result Normal Doppler flow to the ovaries. The right ovary is not as enlarged when compared with the ultrasound from yesterday. ASSESSMENT / PLAN: MEDICAL DECISION MAKING: Primary Problem(s): Pneumoperitoneum Differential diagnoses: Perforated diverticulum, ovarian cyst rupture, abscess Condition is an acute or chronic illness or injury that poses threat to life or bodily function Condition is stable Treatment plan: Appreciate Dr Singh-Discussed Appreciate Dr Bowser-Notes reviewed N.p.o. Monitor labs and replace electrolytes Ambulate Up to chair Remove Tele PT/OT/incentive spirometry Imaging: no further imaging studies ordered today Medications: Stop Morphine as needed for pain Stop Fentanyl Start Dilaudid Continue Toradol Continue Phenergan Zofran as needed for nausea IV Zosyn IVF Medication Monitoring / High Risk Medications: Parenteral administration of controlled substance(s) Nutrition status: at risk for malnutrition Hosting Engineer consult initiated Hospital Prophylaxis: DVT: SCD's Stress Ulcer: Not indicated at this time Disposition: Shared decision making: All test results, treatment options and disposition options were discussed with the patient today Social determinants of health that may impact management: none Code status: Full Code Disposition: Discharge plan is pending [facility] Advanced Care Planning documentation: [x] I have confirmed that the patient's Advance Care Plan is present, Code Status is documented, or surrogate decision maker is listed in the patient's medical record [If yes , STOP HERE] [] The patient's Advance Care Plan is NOT present because: [] I confirmed today that the patient does not wish or was not able to name a surrogate decision maker or provide and advance care plan. [] Hospice care is currently being provided or has been provided within the calendar year. [] I did NOT confirm today the presence of an Advance Care Plan or surrogate decision maker documented within the patient's medical record. [DOES NOT SATISFY MIPS PERFORMANCE] Brandee Rivera APRN - RAPHAEL , KYLEE, [employer] MECH[employer]IC-C Hospitalist Medicine 04/12/2024, 6:54 AM Associated attestation - Nicolette Wyman MD - 04/12/2024 8:42 AM EDT Images from the original note were not included. [address] [place], [place], [address] Attestation Patient: Barbra Claros Date of Admission: 04/10/2024 6:08 PM Hospital Day # 2 Date of Evaluation: 04/12/2024 I personally evaluated and examined the patient [id number] in conjunction with the PA/VENETIAN BLIND MECHANIC and agree with the management and dispostition of the patient. Please see the PA/VENETIAN BLIND MECHANIC's note for full details. My hunter findings are: SUBJECTIVE: Patient seen for follow up of Pneumoperitoneum. Patient seen and examined at the bed side , no new acute events overnight except that she had indicates some episodes of severe intermittent pain in the abdomen that she indicates the pain medication as not sufficient and no new complains. VSS, afebrile. NPO. Passing gas and did move/walk some. Notes from nursing staff and Consults had been reviewed, and the overnight progress had been checked with the nursing staff as well. OBJECTIVE: Vitals: Temp: 97.9 F (36.6 C) BP: 114/67 Respirations: 14 Pulse: (!) 114 SpO2: 99 % Weight Wt Readings from Last 3 Encounters: 04/12/24 73.2 kg (161 lb 6.4 oz) 04/09/24 69.4 kg (153 lb) 04/02/24 69.9 kg (154 lb) Body mass index is 28.59 kg/m . 24HR INTAKE/OUTPUT: Intake/Output Summary (Last 24 hours) at 04/12/2024 0841 Last data filed at 04/12/2024 0356 Gross per 24 hour Intake 2171 ml Output 350 ml Net 1821 ml - Exam: GEN: Awake, alert and oriented x3. EYES: EOMI, pupils equal NECK: Supple. No lymphadenopathy. No carotid bruit CVS: regular rate and rhythm, no audible murmur PULM: CTA, no wheezes, rales or rhonchi, no acute respiratory distress ABD: Bowels sounds normal. Abdomen is soft. No distention. epigastric tenderness to palpation. Dressing is cdi EXT: no edema bilaterally . No calf tenderness. NEURO: Moves all extremities. Motor and sensory are grossly intact SKIN: No rashes. No skin lesions. DATA: Complete Blood Count: Recent Labs 04/10/24184604/11/24 0530 04/12/24 0540 WBC 9.1 9.4 6.4 RBC 4.16 3.94* 3.17* HGB 11.7* 11.1* 8.9* HCT 36.3 34.4* 28.0* MCV 87.3 87.3 88.3 RDW 13.8 13.7 13.4 PLT 192 170 139 Recent Labs 04/10/24184604/11/24 0530 04/12/24 0540 NEUTROABS 6.88 8.56* 3.71 LYMPHOPCT 17* 8* 33 LYMPHSABS 1.52 0.75* 2.08 MONOPCT 7 1* 9 BASOPCT 0 0 0 IMMGRAN 0 0 0 CMP: Lab Results Component Value Date GLUCOSE 83 04/12/2024 BUN 12 04/12/2024 CREATININE 0.5 04/12/2024 NA 139 04/12/2024 K 3.3 (L) 04/12/2024 CALCIUM 8.2 (L) 04/12/2024 CL 106 04/12/2024 CO2 24 04/12/2024 BILITOT 0.3 04/12/2024 ALKPHOS 41 04/12/2024 ALT 11 04/12/2024 AST 9 (L) 04/12/2024 UA: Lab Results Component Value Date COLORU Yellow 04/10/2024 WBCUA 0 TO 2 04/10/2024 RBCUA 0 TO 2 04/10/2024 LEUKOCYTESUR NEGATIVE 04/10/2024 GLUCOSEU NEGATIVE 04/10/2024 KETUA NEGATIVE 04/10/2024 PROTEINU NEGATIVE 04/10/2024 HGBUR TRACE (A) 04/10/2024 BACTERIA 1+ (A) 04/09/2024 Lactic Acid: Lab Results Component Value Date/Time LACTA 0.6 04/10/2024 08:18 PM LACTA 0.9 04/09/2024 11:45 AM LACTA 1.4 04/02/2024 10:10 AM High Sensitivity Troponin: No results for input(s): TROPHS in the last 72 hours. Radiology/Imaging: CT ABDOMEN PELVIS W IV CONTRAST Additional Contrast? None Final Result 1. New pneumoperitoneum consistent with perforated viscus. Wall thickening of small bowel loops as well as the sigmoid colon within the pelvis with surrounding inflammatory change. Suspected prominent bowel diverticulum within the right hemipelvis; findings could be related to perforated acute diverticulitis with associated reactive change or enteritis. 2. Hypodensity in the adjacent right hemipelvis measuring 2.9 x 2.3 cm could represent abscess versus infected or inflamed ovarian cyst. 3. Small amount of free pelvic fluid. Findings were discussed with ELA Laird at 8:04 p.m. on 04/10/2024. US NON OB TRANSVAGINAL W DOPPLER Final Result Normal Doppler flow to the ovaries. The right ovary is not as enlarged when compared with the ultrasound from yesterday. ASSESSMENT: Principal Problem: Pneumoperitoneum Resolved Problems: * No resolved hospital problems. * PLAN: I agree with the plan as outlined in the VEN[employer]IAN BLIND MECHANIC/PA's note Disposition: Discharge plan is pending Please note that this chart was generated using voice recognition Jinnon dictation software. Although every effort was made to ensure the accuracy of this automated salad maker, some errors in salad maker may have occurred. Nicolette Wyman MD 04/12/2024 8:41 AM Patient is refusing to ambulate at this time. Pain is 9/10 and was recently medicated by previous shift RN. Patient educated on importance of ambulating. States she is tired and has not slept all night. She will ambulate later. Will continue to offer frequent ambulation. Patient states fentanyl and toradol together helped get her pain down to a 7 and it was tolerable. Golf Course Manager encouraged patient to get up and walk throughout the day today and to continue doing incentive spirometer in which patient states she has been doing. Golf Course Manager spoke with WIN Alfred regarding patient's pain. Patient is very tearful due to pain. Golf Course Manager at bedside. Gave pain medications. Patient ambulated to and from the bathroom and tolerated well. Patient resting comfortably at this time. Patient states pain and is aware of when she can have her next dose of pain medication. Denies any other needs at this time. Patient alert & oriented x4 and able to answer all questions appropriately and follow commands. Encouraged patient to walk, and use incentive spirometer. Assessment and vitals as charted. Bed locked, gripper socks on, call light within reach and able to use appropriately. Will continue to monitor this shift. Spiritual Services Interventions [id number] 04/11/2024 Robbin Claros 28 y.o. year old female Encounter Summary Encounter Overview/Reason: (P) Initial Encounter Service Provided For: (P) Patient Referral/Consult From: (P) Rounding Last Encounter : (P) 04/11/24 Complexity of Encounter: (P) Moderate Begin Time: (P) 1500 End Time : (P) 1515 Total Time Calculated: (P) 15 min Spiritual/Emotional needs Type: (P) Spiritual Support Assessment/Intervention/Outcome Assessment: (P) Calm Intervention: (P) Discussed belief system/druze practices/azul, Discussed illness injury and it s impact Outcome: (P) Encouraged, Engaged in conversation Physical Therapy Facility/Department: [facility] Daily Treatment Note NAME: Barbra Claros : 1995 Date of Service: 04/11/2024 Discharge Recommendations: Continue to assess pending progress, Home with assist PRN Patient Diagnosis(es): The primary encounter diagnosis was Pneumoperitoneum. Diagnoses of Perforated diverticulum and Peritoneal cavity free air were also pertinent to this visit. Assessment Assessment: Pt. ambulated 40ftx1 with no AD, CGA with additional time. Pt. has slow shuffled gait wiht decreased step clearance. Bed mobility: Min A. Transfers: CGA with additional time to complete. Education on log rolling. Activity Tolerance: Patient limited by pain Plan Physical Therapy Plan General Plan: 2 times a day 7 days a week Specific Instructions for Next Treatment: Once daily on weekends Current Treatment Recommendations: Strengthening;ROM;Balance training;Functional mobility training;Transfer training;Neuromuscular re-education;Stair training;Gait training;Home exercise program;Safety education & training;Patient/Caregiver education & training;Manual;Endurance training;Therapeutic activities Restrictions Restrictions/Precautions Restrictions/Precautions: Fall Risk, General Precautions, NPO Required Braces or Orthoses?: No Subjective Subjective Subjective: Pt. in bed upon arriva, easily woken and agreeable to therapy at this time. Pain: pain 9/10 LB/ abdominal region Orientation Overall Orientation Status: Within Normal Limits Cognition Overall Cognitive Status: WNL Objective Bed Mobility Training Bed Mobility Training: Yes Overall Level of Assistance: Minimum assistance;Contact-guard assistance;Assist X1 Interventions: Verbal cues Rolling: Minimum assistance;Additional time;Assist X1;Contact-guard assistance Supine to Sit: Minimum assistance;Assist X1;Additional time Scooting: Contact-guard assistance;Assist X1;Additional time Transfer Training Transfer Training: Yes Overall Level of Assistance: Minimum assistance;Assist X1;Contact-guard assistance;Additional time Interventions: Verbal cues Sit to Stand: Minimum assistance;Assist X1;Additional time;Contact-guard assistance Stand to Sit: Contact-guard assistance;Minimum assistance;Additional time;Assist X1 Gait Gait Training: Yes Overall Level of Assistance: Contact-guard assistance;Assist X1;Additional time Distance (ft): 40 Feet Assistive Device: None Interventions: Verbal cues Speed/Mellisa: Slow Step Length: Left shortened;Right shortened Gait Abnormalities: Shuffling gait Safety Devices Type of Devices: All fall risk precautions in place;Left in chair;Call light within reach;Chair alarm in place Goals Short Term Goals Time Frame for Short Term Goals: 20 days Short Term Goal 1: Patient to complete all transfers with SUP and no LOB to decrease fall risk. Short Term Goal 2: Patient to perform log roll technique for bed mobility with no vc's required for improved mobility. Short Term Goal 3: Patient to ascend/descend 12 steps with HRx1 and SUP with no LOB or fatigue for improved safety with navigating her home. Short Term Goal 4: Patient to ambulate 300ft with no AD, IND with no fatigue or LOB to improve mobility. Education Patient Education Education Given To: Patient Education Provided: Role of Therapy;Plan of Care;Transfer Training Education Provided Comments: Log roll technique for bed mobility Education Method: Verbal Barriers to Learning: None Education Outcome: Verbalized understanding;Continued education needed Therapy Time Individual Concurrent Group Co-treatment Time In 1430 Time Out 1454 Minutes 24 Aubrie Gonzalez PTA Snowden removed at this time. Pt reluctant to allow snowden to be removed, however. Pt was reminded that she needs to walk more and sit up again today. Pt in chair twice yesterday and only walked once due to pain. Golf Course Manager explained that she will have some pain regardless if she walks or not so she may as well do something to benefit her. Pain regime was updated this am and pt still reports pain of 9/10 with small improvements short lived after short acting pain medication. Pt was educated on the complications of continued use of narcotics post op including ileus or bowel obstruction due to effects of opioids. Pt was warned of high risk for complications if she does not start complying with instructions. Pt voiced understanding but continues to decline assistance to walk or get to chair. BSC placed at bedside post snowden removal to encourage pt to get up as she did not tolerate ambulation. Call light in reach. Occupational Therapy Facility/Department: [facility] Occupational Therapy Initial Assessment Name: Barbra Claros : 1995 Date of Service: 04/11/2024 Discharge Recommendations: Continue to assess pending progress Patient Diagnosis(es): The primary encounter diagnosis was Pneumoperitoneum. Diagnoses of Perforated diverticulum and Peritoneal cavity free air were also pertinent to this visit. Past Medical History: has a past medical history of Acid reflux, Anxiety, Depression, Heartburn, and Seizures (HCC). Past Surgical History: has a past surgical history that includes Tubal ligation; cyst removal (Right, 2019); Dilation and curettage of uterus (2017); Upper gastrointestinal endoscopy (N/A, 07/25/2023); and Hysterectomy (N/A, 11/20/2023). Assessment Performance deficits / Impairments: Decreased functional mobility ;Decreased ADL status;Decreased endurance;Decreased high-level IADLs;Decreased balance;Decreased strength Assessment: Pt is 28 y/o female being evaluated for skilled OT services, following abdominal surgery. Pt assessed this date for functional mobility and ADLs, and presents functioning below her baseline with significant assistance required now for all mobility and self care tasks. Pt would benefit from skilled OT to increase independence and safety with all self care tasks and functional mobility to ensure safe return home and to her PLOF. Prognosis: Good Decision Making: Medium Complexity REQUIRES OT FOLLOW-UP: Yes Activity Tolerance Activity Tolerance: Patient limited by pain Plan Occupational Therapy Plan Times Per Day: Once a day Days Per Week: 7 Days Current Treatment Recommendations: Functional mobility training, Endurance training, Safety education & training, Patient/Caregiver education & training, Self-Care / ADL, Home management training Restrictions Restrictions/Precautions Restrictions/Precautions: Fall Risk, General Precautions, NPO Required Braces or Orthoses?: No Subjective General Patient assessed for rehabilitation services?: Yes Social/Functional History Social/Functional History Lives With: Family Type of Home: House Home Layout: Two level, Bed/Bath upstairs Home Access: Stairs to enter with rails Entrance Stairs - Number of Steps: 3 Entrance Stairs - Rails: None Bathroom Shower/Tub: Tub/Shower unit Has the patient had two or more falls in the past year or any fall with injury in the past year?: No Receives Help From: Family ADL Assistance: Independent Homemaking Assistance: Independent Homemaking Responsibilities: Yes Ambulation Assistance: Independent Transfer Assistance: Independent Active Studio Associate: No Additional Comments: Pt indep with all I/ADLs at baseline. Objective Temp: 98.5 F (36.9 C) Pulse: 71 Heart Rate Source: Monitor Respirations: 18 SpO2: 96 % O2 Device: None (Room air) BP: 110/67 MAP (Calculated): 81 BP Location: Left upper arm BP Method: Automatic Patient Position: Sitting Safety Devices Type of Devices: All fall risk precautions in place;Bed alarm in place;Gait belt;Nurse notified;Left in bed AROM: Generally decreased, functional PROM: Generally decreased, functional Strength: Generally decreased, functional Coordination: Generally decreased, functional Tone: Normal Sensation: Intact ADL Feeding: Independent Grooming: Supervision;Setup UE Bathing: Minimal assistance LE Bathing: Moderate assistance UE Dressing: Minimal assistance LE Dressing: Moderate assistance Toileting: Minimal assistance Functional Mobility: Minimal assistance;Moderate assistance Functional Mobility Skilled Clinical Factors: Pt required Min A for sit to stand tfer from recliner. Min A for short func mob from chair to bed, ~5' with no device. Mod A for sitting to supine bed mobility, limited due to pain. Activity Tolerance Activity Tolerance: Patient tolerated evaluation without incident;Patient limited by pain Vision Vision: Within Functional Limits Hearing Hearing: Within functional limits Cognition Overall Cognitive Status: WNL Orientation Overall Orientation Status: Within Normal Limits Education Given To: Patient Education Provided: Role of Therapy;Plan of Care;Mobility Training;Transfer Training;Equipment Education Provided Comments: bed mobs/log roll technique. educ on obtaining shower chair if needed for d/c. Education Method: Demonstration;Verbal Barriers to Learning: None Education Outcome: Verbalized understanding;Continued education needed AM-PAC - ADL AM-PAC Daily Activity - Inpatient How much help is needed for putting on and taking off regular lower body clothing?: A Lot How much help is needed for bathing (which includes washing, rinsing, drying)?: A Lot How much help is needed for toileting (which includes using toilet, bedpan, or urinal)?: A Little How much help is needed for putting on and taking off regular upper body clothing?: A Little How much help is needed for taking care of personal grooming?: A Little How much help for eating meals?: None AM-PAC Inpatient Daily Activity Raw Score: 17 AM-PAC Inpatient ADL T-Scale Score : 37.26 ADL Inpatient CMS 0-100% Score: 50.11 ADL Inpatient CMS G-Code Modifier : CK Goals Short Term Goals Time Frame for Short Term Goals: 21 visits Short Term Goal 1: Patient to be educated on d/c folder, AE/DME and home safety to ensure safe and indep return home. Short Term Goal 2: Patient to be mod I with ADL routine to ensure safe and indep return home Short Term Goal 3: Patient to complete functional transfers during ADLs Mod I and with good safety awareness demoed. Therapy Time Individual Concurrent Group Co-treatment Time In 09 Time Out 0935 Minutes 20 Richelle Peters, OTMustapha, OTR/L Pt educated at length regarding her condition and treatment trajectory. Pt ambulated in hallway this am and tolerated poorly, sat in chair instead. Pt asked when she could eat and was educated on the need to be passing gas through the GI tract before starting a diet to prevent complications. Golf Course Manager explained that is the reason we want her up and walking so the bowel function returns faster. Pt also educated on the need to continue the IS use to prevent post op pneumonia. Dr. Singh in to see pt this am and stated we would remove the snowden today. Pt currently wants to wait until this afternoon when pain may be better controlled. Educated the the risk for infection with snowden's and pt voiced understanding. Call light in reach. Friend at bedside. POD #1 C/o incisional pain VSS Afebrile Good urine output Chest clear Cardio RRR Abd soft incisional tenderness dressing dry and intact Musculo negative homans Neuro intact Labs ok A/p encouage ambulation and incentive spirometer discontinue snowden start clears when pt starts passing flatus Department of Gynecology Attending Progress Note SUBJECTIVE: The patient is doing well after surgery. OBJECTIVE: Physical Exam VITALS: BP (!) 110/57 Pulse 100 Temp 98 F (36.7 C) (Temporal) Resp 16 Ht 1.6 m (5' 3 ) Wt 73.2 kg (161 lb 4.8 oz) LMP 10/22/2023 SpO2 100% BMI 28.57 kg/m TEMPERATURE: Current - Temp: 98 F (36.7 C); Max - Temp Av.5 F (36.9 C) Min: 97.7 F (36.5 C) Max: 99.5 F (37.5 C) 24HR BLOOD PRESSURE RANGE: Systolic (24hrs), Av , Min:100 , Max:131 ; Diastolic (24hrs), Av, Min:43, Max:76 24HR INTAKE/OUTPUT: Intake/Output Summary (Last 24 hours) at 04/11/2024 0950 Last data filed at 04/11/2024 0802 Gross per 24 hour Intake 1900 ml Output 600 ml Net 1300 ml URINARY CATHETER OUTPUT (Snowden): DRAIN/TUBE OUTPUT: CONSTITUTIONAL: awake, alert, cooperative, no apparent distress, and appears stated age LUNGS: No increased work of breathing, good air exchange, clear to auscultation bilaterally, no crackles or wheezing CARDIOVASCULAR: Normal apical impulse, regular rate and rhythm, normal S1 and S2, no S3 or S4, and no murmur noted ABDOMEN: Dressings from recent surgery GENITAL/URINARY: The patient had repair of a complete cuff dehiscence last night. She is not having any active bleeding and only minimal discharge DATA: CBC: Lab Results Component Value Date/Time WBC 9.4 04/11/2024 05:30 AM RBC 3.94 04/11/2024 05:30 AM HGB 11.1 04/11/2024 05:30 AM HCT 34.4 04/11/2024 05:30 AM MCV 87.3 04/11/2024 05:30 AM MCH 28.2 04/11/2024 05:30 AM MCHC 32.3 04/11/2024 05:30 AM RDW 13.7 04/11/2024 05:30 AM PLT 170 04/11/2024 05:30 AM MPV 10.8 04/11/2024 05:30 AM CBC with Differential: Lab Results Component Value Date/Time WBC 9.4 04/11/2024 05:30 AM RBC 3.94 04/11/2024 05:30 AM HGB 11.1 04/11/2024 05:30 AM HCT 34.4 04/11/2024 05:30 AM PLT 170 04/11/2024 05:30 AM MCV 87.3 04/11/2024 05:30 AM MCH 28.2 04/11/2024 05:30 AM MCHC 32.3 04/11/2024 05:30 AM RDW 13.7 04/11/2024 05:30 AM LYMPHOPCT 8 04/11/2024 05:30 AM MONOPCT 1 04/11/2024 05:30 AM EOSPCT 0 04/11/2024 05:30 AM BASOPCT 0 04/11/2024 05:30 AM MONOSABS 0.09 04/11/2024 05:30 AM LYMPHSABS 0.75 04/11/2024 05:30 AM EOSABS 0.00 04/11/2024 05:30 AM BASOSABS 0.00 04/11/2024 05:30 AM WBC: Lab Results Component Value Date/Time WBC 9.4 04/11/2024 05:30 AM Platelets: Lab Results Component Value Date/Time PLT 170 04/11/2024 05:30 AM Hemoglobin/Hematocrit: Lab Results Component Value Date/Time HGB 11.1 04/11/2024 05:30 AM HCT 34.4 04/11/2024 05:30 AM CMP: Lab Results Component Value Date/Time NA 137 04/11/2024 05:30 AM K 4.0 04/11/2024 05:30 AM CL 105 04/11/2024 05:30 AM CO2 23 04/11/2024 05:30 AM BUN 9 04/11/2024 05:30 AM CREATININE 0.5 04/11/2024 05:30 AM LABGLOM >90 04/11/2024 05:30 AM LABGLOM >60 07/19/2023 12:05 PM GLUCOSE 136 04/11/2024 05:30 AM CALCIUM 8.4 04/11/2024 05:30 AM BILITOT 0.7 04/11/2024 05:30 AM ALKPHOS 49 04/11/2024 05:30 AM AST 13 04/11/2024 05:30 AM ALT 13 04/11/2024 05:30 AM BMP: Lab Results Component Value Date/Time NA 137 04/11/2024 05:30 AM K 4.0 04/11/2024 05:30 AM CL 105 04/11/2024 05:30 AM CO2 23 04/11/2024 05:30 AM BUN 9 04/11/2024 05:30 AM CREATININE 0.5 04/11/2024 05:30 AM CALCIUM 8.4 04/11/2024 05:30 AM LABGLOM >90 04/11/2024 05:30 AM LABGLOM >60 07/19/2023 12:05 PM GLUCOSE 136 04/11/2024 05:30 AM ASSESSMENT AND PLAN: Patient is doing well status post appendectomy extensive lysis of adhesions and repair of cuff dehiscence. I did talk to her about the importance of avoiding any sexual relations tampons and douching for at least 6 if not 8 weeks. I will have the patient follow-up with me in roughly 6 to 8 weeks time as well Principal Problem: Pneumoperitoneum Plan: Observation Progress Note SUBJECTIVE: Patient seen for f/u of Pneumoperitoneum. She resting in bed with nausea but no vomiting. No flatus. Continues with pain but not controlled. Visitors at side ROS: Constitutional: negative for fevers, and negative for chills. Respiratory: negative for shortness of breath, negative for cough, and negative for wheezing Cardiovascular: negative for chest pain, and negative for palpitations Gastrointestinal: positive for abdominal pain, positive for nausea,negative for vomiting, negative for diarrhea, and negative for constipation All other systems were reviewed with the patient and are negative unless otherwise stated in HPI OBJECTIVE: Vitals: Vitals: 04/11/24 0715 BP: (!) 110/57 Pulse: 100 Resp: 16 Temp: 98 F (36.7 C) SpO2: 100% Weight - Scale: 73.2 kg (161 lb 4.8 oz) Height: 160 cm (5' 3 ) Weight Wt Readings from Last 3 Encounters: 04/11/24 73.2 kg (161 lb 4.8 oz) 04/09/24 69.4 kg (153 lb) 04/02/24 69.9 kg (154 lb) Body mass index is 28.57 kg/m . 24HR INTAKE/OUTPUT: Intake/Output Summary (Last 24 hours) at 04/11/2024 09 Last data filed at 04/11/2024 0802 Gross per 24 hour Intake 1900 ml Output 600 ml Net 1300 ml - Exam: GEN: Awake, alert and oriented x3. EYES: EOMI, pupils equal NECK: Supple. No lymphadenopathy. No carotid bruit CVS: regular rate and rhythm, no audible murmur PULM: CTA, no wheezes, rales or rhonchi, no acute respiratory distress ABD: Bowels sounds hypoactive. Abdomen is soft. No distention. Generalized surgical site tenderness to palpation. EXT: no edema bilaterally . No calf tenderness. NEURO: Moves all extremities. Motor and sensory are grossly intact SKIN: No rashes. No skin lesions. - Diagnostic Data: Complete Blood Count: Recent Labs 04/09/24 1145 04/10/24 1847 04/11/24 0530 WBC 6.0 9.1 9.4 RBC 4.16 4.16 3.94* HGB 11.7* 11.7* 11.1* HCT 36.7 36.3 34.4* MCV 88.2 87.3 87.3 MCH 28.1 28.1 28.2 MCHC 31.9 32.2 32.3 RDW 13.5 13.8 13.7 PLT 188 192 170 MPV 10.1 10.5 10.8 Last 3 Blood Glucose: Recent Labs 04/09/24 1145 04/10/24 1847 04/11/24 0530 GLUCOSE 73* 88 136* Comprehensive Metabolic Profile: Recent Labs 04/09/24 1145 04/10/24 1847 04/11/24 0530 NA 140 139 137 K 4.1 3.7 4.0 CL 105 103 105 CO2 27 26 23 BUN 8 11 9 CREATININE 0.5 0.5 0.5 GLUCOSE 73* 88 136* CALCIUM 9.0 9.0 8.4* BILITOT -- -- 0.7 ALKPHOS -- -- 49 AST -- -- 13 ALT -- -- 13 Urinalysis: Lab Results Component Value Date/Time NITRU NEGATIVE 04/10/2024 06:47 PM COLORU Yellow 04/10/2024 06:47 PM PHUR 6.0 04/10/2024 06:47 PM PHUR 5.5 07/10/2023 07:07 PM WBCUA 0 TO 2 04/10/2024 06:47 PM RBCUA 0 TO 2 04/10/2024 06:47 PM MUCUS TRACE 04/10/2024 06:47 PM TRICHOMONAS NEGATIVE 02/06/2024 11:17 AM BACTERIA 1+ 04/09/2024 11:56 AM LEUKOCYTESUR NEGATIVE 04/10/2024 06:47 PM UROBILINOGEN Normal 04/10/2024 06:47 PM BILIRUBINUR NEGATIVE 04/10/2024 06:47 PM GLUCOSEU NEGATIVE 04/10/2024 06:47 PM KETUA NEGATIVE 04/10/2024 06:47 PM HgBA1c: No results found for: LABA1C Lactic Acid: Lab Results Component Value Date/Time LACTA 0.6 04/10/2024 08:18 PM LACTA 0.9 04/09/2024 11:45 AM LACTA 1.4 04/02/2024 10:10 AM Troponin: No results for input(s): TROPONINI in the last 72 hours. CRP: No results for input(s): CRP in the last 72 hours. Radiology/Imaging: CT ABDOMEN PELVIS W IV CONTRAST Additional Contrast? None Final Result 1. New pneumoperitoneum consistent with perforated viscus. Wall thickening of small bowel loops as well as the sigmoid colon within the pelvis with surrounding inflammatory change. Suspected prominent bowel diverticulum within the right hemipelvis; findings could be related to perforated acute diverticulitis with associated reactive change or enteritis. 2. Hypodensity in the adjacent right hemipelvis measuring 2.9 x 2.3 cm could represent abscess versus infected or inflamed ovarian cyst. 3. Small amount of free pelvic fluid. Findings were discussed with ELA Laird at 8:04 p.m. on 04/10/2024. US NON OB TRANSVAGINAL W DOPPLER Final Result Normal Doppler flow to the ovaries. The right ovary is not as enlarged when compared with the ultrasound from yesterday. ASSESSMENT / PLAN: MEDICAL DECISION MAKING: Primary Problem(s): Pneumoperitoneum Differential diagnoses: Perforated diverticulum, ovarian cyst rupture, abscess Condition is an acute or chronic illness or injury that poses threat to life or bodily function Condition is stable Treatment plan: Appreciate Dr Singh-Discussed Appreciate Dr Bowser-Notes reviewed N.p.o. Monitor labs and replace electrolytes Ambulate Up to chair Remove Tele PT/OT/incentive spirometry Imaging: no further imaging studies ordered today Medications: Stop Morphine as needed for pain Start Fentanyl Start Toradol Start Phenergan Zofran as needed for nausea IV Zosyn Medication Monitoring / High Risk Medications: Parenteral administration of controlled substance(s) Nutrition status: at risk for malnutrition Hosting Engineer consult initiated Hospital Prophylaxis: DVT: SCD's Stress Ulcer: Not indicated at this time Disposition: Shared decision making: All test results, treatment options and disposition options were discussed with the patient today Social determinants of health that may impact management: none Code status: Full Code Disposition: Discharge plan is pending [facility] Advanced Care Planning documentation: [x] I have confirmed that the patient's Advance Care Plan is present, Code Status is documented, or surrogate decision maker is listed in the patient's medical record [If yes , STOP HERE] [] The patient's Advance Care Plan is NOT present because: [] I confirmed today that the patient does not wish or was not able to name a surrogate decision maker or provide and advance care plan. [] Hospice care is currently being provided or has been provided within the calendar year. [] I did NOT confirm today the presence of an Advance Care Plan or surrogate decision maker documented within the patient's medical record. [DOES NOT SATISFY [facility] PERFORMANCE] Brandee Rivera APRN - RAPHAEL , KYLEE, VEN[employer]IAN BLIND MECHANIC-C Hospitalist Medicine 04/11/2024, 9:39 AM Associated attestation - Nicolette Wyman MD - 04/11/2024 8:20 PM EDT Images from the original note were not included. [address], [place], [place], [address] Attestation Patient: Barbra Claros Date of Admission: 04/10/2024 6:08 PM Hospital Day # 1 Date of Evaluation: 04/11/2024 I personally evaluated and examined the patient [id number] in conjunction with the PA/VENETIAN BLIND MECHANIC and agree with the management and dispostition of the patient. Please see the PA/VENETIAN BLIND MECHANIC's note for full details. My hunter findings are: SUBJECTIVE: Patient seen for follow up of Pneumoperitoneum. Patient seen and examined at the bed side , no new acute events overnight and no new complains except for ongoing abdominal pain. She tolerated the procedure well and pain has improved/been well managed with the morphine. No n/v/d, no BM yet, not passing gas. Notes from nursing staff and Consults had been reviewed, and the overnight progress had been checked with the nursing staff as well. OBJECTIVE: Vitals: Temp: 97.8 F (36.6 C) BP: 111/68 Respirations: 20 Pulse: 75 SpO2: 98 % Weight Wt Readings from Last 3 Encounters: 04/11/24 73.2 kg (161 lb 4.8 oz) 04/09/24 69.4 kg (153 lb) 04/02/24 69.9 kg (154 lb) Body mass index is 28.57 kg/m . 24HR INTAKE/OUTPUT: Intake/Output Summary (Last 24 hours) at 04/11/2024 2019 Last data filed at 04/11/2024 1326 Gross per 24 hour Intake 1900 ml Output 950 ml Net 950 ml - Exam: GEN: Awake, alert and oriented x3. EYES: EOMI, pupils equal NECK: Supple. No lymphadenopathy. No carotid bruit CVS: regular rate and rhythm, no audible murmur PULM: CTA, no wheezes, rales or rhonchi, no acute respiratory distress ABD: Bowels sounds normal. Abdomen is soft. No distention. generalized tenderness to palpation. Dressing is cdi EXT: no edema bilaterally . No calf tenderness. NEURO: Moves all extremities. Motor and sensory are grossly intact SKIN: No rashes. No skin lesions. DATA: Complete Blood Count: Recent Labs 04/09/24 1145 04/10/24184604/11/24 0530 WBC 6.0 9.1 9.4 RBC 4.16 4.16 3.94* HGB 11.7* 11.7* 11.1* HCT 36.7 36.3 34.4* MCV 88.2 87.3 87.3 RDW 13.5 13.8 13.7 PLT 188 192 170 Recent Labs 04/09/24 1145 04/10/24 1847 04/11/24 0530 NEUTROABS 3.21 6.88 8.56* LYMPHOPCT 38 17* 8* LYMPHSABS 2.24 1.52 0.75* MONOPCT 7 7 1* BASOPCT 1 0 0 IMMGRAN 0 0 0 CMP: Lab Results Component Value Date GLUCOSE 136 (H) 04/11/2024 BUN 9 04/11/2024 CREATININE 0.5 04/11/2024 NA 137 04/11/2024 K 4.0 04/11/2024 CALCIUM 8.4 (L) 04/11/2024 CL 105 04/11/2024 CO2 23 04/11/2024 BILITOT 0.7 04/11/2024 ALKPHOS 49 04/11/2024 ALT 13 04/11/2024 AST 13 04/11/2024 UA: Lab Results Component Value Date COLORU Yellow 04/10/2024 WBCUA 0 TO 2 04/10/2024 RBCUA 0 TO 2 04/10/2024 LEUKOCYTESUR NEGATIVE 04/10/2024 GLUCOSEU NEGATIVE 04/10/2024 KETUA NEGATIVE 04/10/2024 PROTEINU NEGATIVE 04/10/2024 HGBUR TRACE (A) 04/10/2024 BACTERIA 1+ (A) 04/09/2024 Lactic Acid: Lab Results Component Value Date/Time LACTA 0.6 04/10/2024 08:18 PM LACTA 0.9 04/09/2024 11:45 AM LACTA 1.4 04/02/2024 10:10 AM High Sensitivity Troponin: No results for input(s): TROPHS in the last 72 hours. Radiology/Imaging: CT ABDOMEN PELVIS W IV CONTRAST Additional Contrast? None Final Result 1. New pneumoperitoneum consistent with perforated viscus. Wall thickening of small bowel loops as well as the sigmoid colon within the pelvis with surrounding inflammatory change. Suspected prominent bowel diverticulum within the right hemipelvis; findings could be related to perforated acute diverticulitis with associated reactive change or enteritis. 2. Hypodensity in the adjacent right hemipelvis measuring 2.9 x 2.3 cm could represent abscess versus infected or inflamed ovarian cyst. 3. Small amount of free pelvic fluid. Findings were discussed with ELA Laird at 8:04 p.m. on 04/10/2024. US NON OB TRANSVAGINAL W DOPPLER Final Result Normal Doppler flow to the ovaries. The right ovary is not as enlarged when compared with the ultrasound from yesterday. ASSESSMENT: Principal Problem: Pneumoperitoneum Resolved Problems: * No resolved hospital problems. * PLAN: I agree with the plan as outlined in the VEN[employer]IAN BLIND MECHANIC/PA's note Disposition: Discharge plan is pending Please note that this chart was generated using voice recognition Jinnon dictation software. Although every effort was made to ensure the accuracy of this automated salad maker, some errors in salad maker may have occurred. Nicolette Wyman MD 04/11/2024 8:19 PM Physical Therapy Facility/Department: [facility] Physical Therapy Initial Assessment Name: Barbra Claros : 1995 Date of Service: 04/11/2024 Discharge Recommendations: Continue to assess pending progress, Home with assist PRN Patient Diagnosis(es): The primary encounter diagnosis was Pneumoperitoneum. Diagnoses of Perforated diverticulum and Peritoneal cavity free air were also pertinent to this visit. Past Medical History: has a past medical history of Acid reflux, Anxiety, Depression, Heartburn, and Seizures (HCC). Past Surgical History: has a past surgical history that includes Tubal ligation; cyst removal (Right, 2019); Dilation and curettage of uterus (2018); Upper gastrointestinal endoscopy (N/A, 07/25/2023); and Hysterectomy (N/A, 11/20/2023). Assessment Assessment: Patient is 28 year old female with dx of pneumoperitonitis who presents with decreased B LE strength, decreased functional mobility and endurance and decreased safety and balance during transfers and ambulation and would benefit from physical therapy to address all concerns and safely return to [facility]. Treatment Diagnosis: Difficulty walking Specific Instructions for Next Treatment: Once daily on weekends Therapy Prognosis: Good Decision Making: Medium Complexity Requires PT Follow-Up: Yes Activity Tolerance Activity Tolerance: Patient tolerated evaluation without incident;Patient limited by pain Plan Physical Therapy Plan General Plan: 2 times a day 7 days a week Specific Instructions for Next Treatment: Once daily on weekends Current Treatment Recommendations: Strengthening, ROM, Balance training, Functional mobility training, Transfer training, Neuromuscular re-education, Stair training, Gait training, Home exercise program, Safety education & training, Patient/Caregiver education & training, Manual, Endurance training, Therapeutic activities Safety Devices Type of Devices: All pamela prominences offloaded, Patient at risk for falls, All fall risk precautions in place, Left in chair, Call light within reach, Chair alarm in place, Nurse notified Restrictions Restrictions/Precautions Restrictions/Precautions: Fall Risk, General Precautions, NPO Subjective General Chart Reviewed: Yes Patient assessed for rehabilitation services?: Yes Response To Previous Treatment: Not applicable Family / Caregiver Present: No Referring Practitioner: Aubrie Gray CNP Referral Date : 04/11/24 Diagnosis: Pneumoperitoneum, K66.8 Follows Commands: Within Functional Limits Subjective Subjective: Pt reports pain over abdominal incision; agrees to PT eval. Just had morphine Social/Functional History Social/Functional History Lives With: Family Type of Home: House Home Layout: Two level, Bed/Bath upstairs Home Access: Stairs to enter with rails Entrance Stairs - Number of Steps: 3 Entrance Stairs - Rails: None ADL Assistance: Independent Homemaking Assistance: Needs assistance Homemaking Responsibilities: Yes Ambulation Assistance: Independent Transfer Assistance: Independent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 (three) times a day. metroNIDAZOLE (FLAGYL) 500 mg tablet Take 1 tablet (500 mg total) by mouth every 12 (twelve) hours for 11 days. 22 tablet 0 nystatin (MYCOSTATIN) cream Apply 1 application topically in the morning and 1 application before bedtime. 30 g 0 ondansetron, PF, (ZOFRAN) 4 mg/2 mL injection Take 2 mL (4 mg total) by mouth every 6 (six) hours as needed for nausea or vomiting. 20 mL 0 no122/iron/folic acid ( MULTI ORAL) Take by mouth. No current facility-administered medications on file prior to visit. Triaminic [urxutagcdiubw-vk-bcwdavdnncohz] Review of Systems: As noted in HPI Physical Exam unknown if currently . Constitutional: She is oriented to person, place, and time and well-developed, well-nourished, and in no distress. Psychiatric: Mood, memory, affect and judgment normal. Neurological: Pleasant and oriented. HENT: Neck normal in appearance. Moist mucus membranes. Anicteric sclera. Normocephalic. Cardiovascular: Regular rate and rhythm. Pulmonary/Chest: Effort normal. No respiratory distress. Clear to auscultation bilaterally. Skin: Skin is warm and dry. No rash noted. No pallor. Abdomen: soft, non-tender, and non-distended. Assessment and Plan: Ms. Barbra Claros is a 28 y.o. with fu for pelvic abscess Pelvic abscess c/b sepsis S/p IR drain placement on 01/14, NGTD, removed today d/t no output for 2 days S/p IV zosyn and flagyl, currently on flagyl and doxy Symptoms have resolved. Afebrile. No abdominal pain. Return precautions given. RTC: plans to return to primary OBGYN in [place] Resident Attestation: The patient was seen and discussed with preceptor Dr. Bhardwaj. Ramona Cleaning DO 01/22/24 8:30 AM ObGyn Resident, PGY-2 Attestation: I performed the critical/hunter portions of the service. I was directly involved in the management and treatment plan of the patient. I reviewed the resident's note. Notes/Findings: 28y P1112 for hospital follow up after recent admission for possible pelvic abscess Pelvic abscess - drain with negligible output for several days - complete course of doxycycline and flagyl - warnings reviewed Follow up with primary OBGYN in [place] Note to patient: The Cures Act makes medical notes like these available to patients in the interest of transparency. However, be advised this is a medical document. It is intended as peer to peer communication. It is written in medical language and may contain abbreviations or verbiage that are unfamiliar. It may appear blunt or direct. Medical documents are intended to carry relevant information, facts as evident, and the clinical opinion of the practitioner. documented in this encounter [facility] 01-19-2024 Miscellaneous Notes DO Linda Rogers [facility] Women Appointment Desk Patient will need appointment on Monday01/22/24 or Monday01/23/24 for follow up and evaluation of IR drain output. Thank you! Left message for patient to call office to schedule appt Sharee documented in this encounter [facility] 01-19-2024 Telephone encounter Note DO Linda Rogers [facility] Women Appointment Desk Patient will need appointment on Monday01/22/24 or Monday01/23/24 for follow up and evaluation of IR drain output. Thank you! Left message for patient to call office to schedule appt Sharee [facility] 01-15-2024 Note IR ABSCESS DRAIN PER IT/RETRO W GUID History: Pelvic abscess Procedure: 1. CT guided drainage of pelvic abscess Interventional radiologist: Dr. Alex Hinds Anesthesia: The patient's cardiopulmonary status was evaluated and the patient is suitable for moderate sedation. During the course of the procedure, the patient was sedated with 2 mg Versed IV and 3 mg Dilaudid IV while being monitored with ECG, blood pressure monitoring and pulse oximetry by appropriately trained personnel. 45 minutes awrq-pn-hydl moderate sedation was provided by Dr. Cifuentes. Following the procedure, the patient was recovered according to the moderate sedation policy. Estimated blood loss: Minimal. Additional medications: 4 mg Zofran Technique and findings: Informed consent was obtained after discussion of risks, benefits and alternatives. Final verification was performed. The patient was placed supine and limited CT scanning was performed for localization of the pelvic abscess. Overlying skin was marked and then sterilely prepped and draped. Local anesthesia with 1% lidocaine. Using CT guidance, an 18 gauge Chiba needle was advanced into the collection and serosanguineous fluid was aspirated. A 0.035 guide wire was then passed and the needle was exchanged for a 7 and then 10 Fr dilator and then a 10 Surinamese pigtail catheter. Position was confirmed with CT. Pigtail was locked and 10 cc of serosanguineous fluid was aspirated. Sample sent to the lab for analysis. Catheter was then placed to bulb suction and secured with 2-0 Prolene suture. The patient tolerated the procedure well and there were no immediate complications. Impression: Successful CT guided placement of a 10 Surinamese pigtail catheter into the pelvic abscess. All CT scans at this facility use dose modulation, iterative reconstruction, and/or weight based dosing when appropriate to reduce radiation dose to as low as reasonably achievable. Finalized by Alex Hinds on 01/15/2024 4:32 PM [facility] 01-14-2024 Miscellaneous Notes OB [phone] [facility] Mirella re pain and weakness Numeric page sent documented in this encounter [facility] 01-14-2024 Telephone encounter Note OB [phone] [facility] Mirella re pain and weakness [facility] 01-14-2024 Telephone encounter Note Numeric page sent [facility] 01-13-2024 Miscellaneous Notes OB re Medication request Numeric page sent to Kelly BLEDSOE to call facility documented in this encounter [facility] 01-13-2024 Telephone encounter Note OB re Medication request [facility] 01-13-2024 Telephone encounter Note Numeric page sent to Kelly BLEDSOE to call facility [facility] 01-04-2024 Miscellaneous Notes Called patient back and left message, stated to her that she will need to go back to [place] where she had her surgery or she should be evaluated at [facility] or [facility] . Patient had Hyst on 11/23/2023 fell over her dog 11/26/2023 and started bleeding stopped and then started again.She went to [facility] ER they told her that her stitches were stretched and also had BV. Per Fiona she cannot do anything in office call or appointment. Left message for patient to call the office documented in this encounter [facility] 01-04-2024 Telephone encounter Note Called patient back and left message, stated to her that she will need to go back to [place] where she had her surgery or she should be evaluated at [facility] or [facility] . Patient had Hyst on 11/23/2023 fell over her dog 11/26/2023 and started bleeding stopped and then started again.She went to [facility] ER they told her that her stitches were stretched and also had BV. Per Fiona she cannot do anything in office call or appointment. Left message for patient to call the office [facility] 12-18-2023 Note Education Materials Gastroenterology Abdominal Pain, Adult Follow-up with your BEHAVIORAL SCIENCES INSTRUCTOR review this emergency department visit and for further evaluation of your pelvic pain and vaginal bleeding. Many things can cause belly (abdominal) pain. Most times, belly pain is not dangerous. Many cases of belly pain can be watched and treated at home. Sometimes, though, belly pain is serious. Your doctor will try to find the cause of your belly pain. Follow these instructions at home: Medicines ? Take bywk-ovn-wrtdicu and prescription medicines only as told by your doctor. ? Do not take medicines that help you poop (laxatives) unless told by your doctor. General instructions ? Watch your belly pain for any changes. ? Drink enough fluid to keep your pee (urine) pale yellow. ? Keep all follow-up visits as told by your doctor. This is important. Contact a doctor if: ? Your belly pain changes or gets worse. ? You are not hungry, or you lose weight without trying. ? You are having trouble pooping (constipated) or have watery poop (diarrhea) for more than 2?3 days. ? You have pain when you pee or poop. ? Your belly pain wakes you up at night. ? Your pain gets worse with meals, after eating, or with certain foods. ? You are vomiting and cannot keep anything down. ? You have a fever. ? You have blood in your pee. Get help right away if: ? Your pain does not go away as soon as your doctor says it should. ? You cannot stop vomiting. ? Your pain is only in areas of your belly, such as the right side or the left lower part of the belly. ? You have bloody or black poop, or poop that looks like tar. ? You have very bad pain, cramping, or bloating in your belly. ? You have signs of not having enough fluid or water in your body (dehydration), such as: ? Dark pee, very little pee, or no pee. ? Cracked lips. ? Dry mouth. ? Sunken eyes. ? Sleepiness. ? Weakness. ? You have trouble breathing or chest pain. Summary ? Many cases of belly pain can be watched and treated at home. ? Watch your belly pain for any changes. ? Take uiot-dwu-vaqulzf and prescription medicines only as told by your doctor. ? Contact a doctor if your belly pain changes or gets worse. ? Get help right away if you have very bad pain, cramping, or bloating in your belly. This information is not intended to replace advice given to you by your health care provider. Make sure you discuss any questions you have with your health care provider. Document Revised: 10/14/2019 Document Reviewed: 10/14/2019 [employer] Patient Education ? 2022 [employer]. [facility] 11-20-2023 Hospital Discharge instructions Esther Burrell PA-C - 11/20/2023 1:52 PM EDT SAME DAY SURGERY DISCHARGE INSTRUCTIONS 1. Do not drive or operate hazardous machinery for 24 hours. 2. Do not make important personal or business decisions for 24 hours. 3. Do not drink alcoholic beverages for 24 hours. 4. Do not smoke tobacco products for 24 hours. 5. Patient should not be left alone for 12-24 hours following surgical procedure. 6. Eat light foods (Jell-O, soups, etc....) and drink plenty of fluids (water, Sprite, etc...) up to 8 glasses per day, as you can tolerate. 7. If your bandages become soaked with bright red blood, place another dressing pad over your bandages. (DO NOT remove original bandage.) Call your surgeon for further instructions. A small amount of bright red blood is to be expected. 8. Wash hands before and after incision care. It is important to practice good personal hygiene during the post op period. 9. You may remove your dressing the morning following surgery; leave the steri-strips in place, they will fall off on their own. If they have not fallen off in 7-10 days, please remove them. 10. If no drainage from incisions you may shower. 11. Limit your activities for 24 hours. Do not engage in heavy work until your surgeon gives you permission. DO NOT lift anything heavier than 10 pounds. You may go up & down stairs and do any activity that can be done comfortably. 12. Report the following signs or any questions regarding your physical condition to your surgeon immediately: Excessive swelling of, or around the wound area. Redness or pus-like drainage Temperature of 100 degrees (F) or above. Excessive pain. If unable to urinate 4 hours after surgery. If bleeding at surgery site continues after 5-10 minutes of pressure. 13. Pain Control: Take pain meds as prescribed. You may use over the counter meds like Acetaminophen or Ibuprofen if not part of the meds already prescribed. While on narcotic pain meds DO NOT drive, operate machinery or make business decisions. 14. Try to avoid constipation (no bowel movement) by using over the counter Colace once or twice daily and increasing your fluid intake. Please call if no bowel movement after increasing fluid intake, use of Milk of Magnesia, Pericolace (laxative) or Dulcolax suppositories. 15. No sexual activity, tampons, douches, sitting in hot tubs/saunas or swimming in pools/ponds for 6 weeks or until cleared by your surgeon. 16. Call your surgeon for any questions regarding your surgery. 17. Call for an appointment to see ELA Tejeda in [address] Velazquez -- [place] office [phone] [place] office [phone] documented in this encounter [facility] 11-14-2023 History of Present illness Narrative Patient instructed on the pre-operative, intra-operative, and post-operative process. Patient instructed on NPO status. Medication instructions and pre operative instruction sheet reviewed with the patient. CHG skin prep instructions reviewed with patient. Attempted PAT phone call; no answer; message left to return PAT phone call. Attempted PAT phone call; no answer; message left to return PAT phone call. documented in this encounter [facility] 10-19-2023 Note [id number] 10-18-2023 Note Patient Education Ma terials Follows: Wrist Sprain, Adult A wrist sprain is a stretch or tear in the strong tissues that connect the wrist bones to each other. These strong tissues are called ligaments. There are three types of wrist sprains: ? Grade 1. The ligament is stretched more than normal. There may be a minor amount of wrist pain. ? Grade 2. The ligament is partially torn. You may be able to move your wrist, but not very much. There may be a moderate amount of wrist pain. ? Grade 3. The ligament or ligaments are completely torn. You may find it difficult to move your wrist even a little. There may be a significant amount of wrist pain. What are the causes? This condition may be caused by using the wrist too much during sports, exercise, or work. It can also happen due to a fall or during an accident. What increases the risk? You are more likely to develop this condition if: ? You had a previous wrist or arm injury. ? You have poor wrist strength and flexibility. ? You play contact sports, such as football or soccer. ? You participate in sports that may result in a fall, such as skateboarding, biking, skiing, or snowboarding. ? You do not exercise regularly. ? You use exercise equipment that does not fit well. What are the signs or symptoms? Symptoms of this condition include: ? Pain in the wrist, arm, or hand. ? Swelling or bruised skin near the wrist, hand, or arm. The skin may look yellow or blue. ? Stiffness or trouble moving the hand. ? Hearing a noise, like a pop or a snap, at the time of injury, or feeling a tear at the time of the injury. ? A warm feeling in the skin around the wrist. How is this diagnosed? This condition is diagnosed with a physical exam. Sometimes an X-ray is taken to make sure a bone did not break. You may also have an MRI of your wrist to check for torn ligaments. How is this treated? This condition is treated by resting and applying ice to your wrist. Additional treatment may include: ? Taking medicine for pain and inflammation. ? Wearing a splint, brace, or cast for a short period of time to keep your wrist from moving (immobilized). ? Doing exercises to strengthen and stretch your wrist. ? Having surgery. This may be done if the ligament is completely torn. Follow these instructions at home: If you have a splint or brace: ? Wear the splint or brace as told by your health care provider. Remove it only as told by your health care provider. ? Loosen it if your fingers tingle, become numb, or turn cold and blue. ? Keep it clean. ? If the splint or brace is not waterproof: ? Do not let it get wet. ? Cover it with a watertight covering when you take a bath or a shower. If you have a cast: ? Do not put pressure on any part of the cast until it is fully hardened. This may take several hours. ? Do not stick anything inside the cast to scratch your skin. Doing that increases your risk of infection. ? Check the skin around the cast every day. Tell your health care provider about any concerns. ? You may put lotion on dry skin around the edges of the cast. Do not put lotion on the skin underneath the cast. ? Keep it clean. ? If the cast is not waterproof: ? Do not let it get wet. ? Cover it with a watertight covering when you take a bath or shower. Managing pain, stiffness, and swelling ? If directed, put ice on the injured area. To do this: ? If you have a removable splint or brace, remove it as told by your health care provider. ? Put ice in a plastic bag. ? Place a towel between your skin and the bag or between the splint or cast and the bag. ? Leave the ice on for 20 minutes, 2?3 times a day. ? Remove the ice if your skin turns bright red. This is very important. If you cannot feel pain, heat, or cold, you have a greater risk of damage to the area. ? Move your fingers often to reduce stiffness and swelling. ? Raise (elevate) the injured area above the level of your heart while you are sitting or lying down. Activity ? Rest your wrist as told by your health care provider. Do not do things that cause pain. ? Ask your health care provider when it is safe to drive if you have a splint, brace, or cast on your wrist. ? Do exercises as told by your health care provider. ? Return to your normal activities as told by your health care provider. Ask your health care provider what activities are safe for you. General instructions ? Take wboh-spi-onketee and prescription medicines only as told by your health care provider. ? Do not use any products that contain nicotine or tobacco, such as cigarettes, e-cigarettes, and chewing tobacco. These can delay healing. If you need help quitting, ask your health care provider. ? Keep all follow-up visits. This is important. Contact a health care provider if: ? Your pain, bruising, or swelling gets worse. ? Your skin becomes red, gets a rash, or has open sores. ? Your pain does n (more content not included)... [facility] 07-25-2023 History of Present illness Narrative Discharge Criteria Outpatients must meet criteria 1 through 7. Up to restroom, void sufficient amount. Yes. Gait steady when up. 1. Minimum 30 minutes after last dose of sedative medication, minimum 120 minutes after last dose of reversal agent. Yes 2. Systolic BP stable within 20 mmHg for 30 minutes & systolic BP between 90 & 180 or within 10 mmHg of baseline. Yes 3. Pulse between 60 and 100 or within 10 bpm of baseline. Yes 4. Spontaneous respiratory rate >/= 10 per minute. Yes 5. SaO2 >/= 95 or >/= baseline. Yes 6. Able to cough and swallow or return to baseline function. Yes 7. Alert and oriented or return to baseline mental status. Yes 8. Demonstrates controlled, coordinated movements, ambulates with steady gait, or return to baseline activity function. Yes 9. Minimal or no pain or nausea, or at a level tolerable and acceptable to patient. Yes 10. Takes and retains oral fluids as allowed. Yes 11. Procedural / perioperative site stable. Minimal or no bleeding. Yes 12. If GI endoscopy procedure, minimal or no abdominal distention or passing flatus. Yes 13. Written discharge instructions and emergency telephone number provided. Yes 14. Accompanied by a responsible adult. Yes Adult patient discharged from facility without responsible person meets above criteria plus the following: a) remains awake without stimulus for 30 minutes b) oriented appropriate for age c) all vital signs stable d) no significant risk of losing protective reflexes e) able to maintain pre-procedure mobility without assistance f) no nausea or dizziness g) transportation arrangements that do not require patient to operate motor Vehicle. Yes Remains at baseline. Assisted up to BR. Voids and gait is steady. Feels she is ready to be discharged. Placed on and off bedpan but does not void. Has returned back to baseline/pre-procedure condition. Remains alert and in no distress at this time. Now opens eyes-states she is home . Drowsy but does open eyes to name. DAYAMI remains at bedside. Lungs remain clear with no further wheezing. No further dry heaves or coughing. Returns from endoscopy with RN and anesthesia at bedside. Audible wheezing noted. STAT xopenex treatment ordered. Pt coughs up small amount clear phlegm then dry heaves. Continues to cough throughout treatment but improves by end of treatment. Lungs clear before and after treatment. Anesthesia in several times to check on patient. Approx 10 minutes after aerosol treatment completed she again starts to dry heave and cough and then goes limp according to RT who remains at bedside. Sternal rub and ammonia capsule needed to arouse patient who responds only by an occasional moan. Eyes with slight nystagmus type movement from left to right. VS remain stable-see flow sheet. [facility] Preadmission Testing Name: Barbra Claros : 1995 Patient (home) Procedure: EGD Date of Procedure: 07/25/2023 Surgeon: Kisha Rangel MD Ht: 160 cm (5' 3 ) Wt: 86.6 kg (191 lb) Wt method: Stated Allergies: Allergies Allergen Reactions Chlorpheniramine Anaphylaxis and Other (See Comments) claritin Dm-Apap-Cpm Angioedema and Swelling Throat Swells There were no vitals filed for this visit. Patient's last menstrual period was 07/17/2023 (exact date). Do you take blood thinners? [] Yes [x] No Instructed to stop blood thinners prior to procedure? [] Yes [] No [x] N/A Do you have sleep apnea? [] Yes [x] No Do you have acid reflux ? [x] Yes [] No Do you have hiatal hernia? [] Yes [x] No Do you ever experience motion sickness? [x] Yes [] No Have you had a respiratory infection or sore throat in last 4 weeks before surgery? [] Yes [x] No Do you have poorly controlled asthma or COPD? Difficulty with intubation in past? [] Yes [x] No [] Yes [] No Do you have a history of angina in the last month or symptomatic arrhythmia? [] Yes [x] No Do you have significant central nervous system disease? [] Yes [] No Have you had an EKG, labs, or chest xray in last 12 months? If yes provide copies to anesthesia [] Yes [x] No [] Lab [] EKG [] CXR Have you had a stress test? [x] Yes [] No When/where: [facility] Was it normal? [] Yes [] No Do you or your family have a history of Malignant Hyperthermia? [] Yes [x] No Do you smoke? [x] Yes [] No Please refrain from smoking on the day of surgery. Patient instructed on: [x] NPO Status [x] Meds to Take [] Hold GLP-1 Receptor Agonist [x] Ride Home [] No Jewelry/Contact Lenses/Nail Amharic [x] Prep/Lax/Clear Liquids [] Chlorhexidene DOS Patient Needs [x] HCG [] Blood Sugar [] PT/INR [] T&S Do you have any metal allergies? [] Yes [x] No If yes, to what metals: Patient instructed on the pre-operative, intra-operative, and post-operative process? Yes Medication instructions reviewed with patient? Yes documented in this encounter [facility] 06-09-2023 Note Education Materials Neurology Migraine Headache A migraine headache is a very strong throbbing pain on one side or both sides of your head. This type of headache can also cause other symptoms. It can last from 4 hours to 3 days. Talk with your doctor about what things may bring on (trigger) this condition. What are the causes? The exact cause of this condition is not known. This condition may be triggered or caused by: ? Drinking alcohol. ? Smoking. ? Taking medicines, such as: ? Medicine used to treat chest pain (nitroglycerin). ? control pills. ? Estrogen. ? Some blood pressure medicines. ? Eating or drinking certain products. ? Doing physical activity. Other things that may trigger a migraine headache include: ? Having a menstrual period. ? . ? Hunger. ? Stress. ? Not getting enough sleep or getting too much sleep. ? Weather changes. ? Tiredness (fatigue). What increases the risk? ? Being 25?55 years old. ? Being female. ? Having a family history of migraine headaches. ? Being . ? Having depression or anxiety. ? Being very overweight. What are the signs or symptoms? ? A throbbing pain. This pain may: ? Happen in any area of the head, such as on one side or both sides. ? Make it hard to do daily activities. ? Get worse with physical activity. ? Get worse around bright lights or loud noises. ? Other symptoms may include: ? Feeling sick to your stomach (nauseous). ? Vomiting. ? Dizziness. ? Being sensitive to bright lights, loud noises, or smells. ? Before you get a migraine headache, you may get warning signs (an aura). An aura may include: ? Seeing flashing lights or having blind spots. ? Seeing bright spots, halos, or zigzag lines. ? Having tunnel vision or blurred vision. ? Having numbness or a tingling feeling. ? Having trouble talking. ? Having weak muscles. ? Some people have symptoms after a migraine headache (postdromal phase), such as: ? Tiredness. ? Trouble thinking (concentrating). How is this treated? ? Taking medicines that: ? Relieve pain. ? Relieve the feeling of being sick to your stomach. ? Prevent migraine headaches. ? Treatment may also include: ? Having acupuncture. ? Avoiding foods that bring on migraine headaches. ? Learning ways to control your body functions (biofeedback). ? Therapy to help you know and deal with negative thoughts (cognitive behavioral therapy). Follow these instructions at home: Medicines ? Take rvlt-pwc-bdngivg and prescription medicines only as told by your doctor. ? Ask your doctor if the medicine prescribed to you: ? Requires you to avoid driving or using heavy machinery. ? Can cause trouble pooping (constipation). You may need to take these steps to prevent or treat trouble pooping: ? Drink enough fluid to keep your pee (urine) pale yellow. ? Take gtoe-thu-gjiyqnc or prescription medicines. ? Eat foods that are high in fiber. These include beans, whole grains, and fresh fruits and vegetables. ? Limit foods that are high in fat and sugar. These include fried or sweet foods. Lifestyle ? Do not drink alcohol. ? Do not use any products that contain nicotine or tobacco, such as cigarettes, e-cigarettes, and chewing tobacco. If you need help quitting, ask your doctor. ? Get at least 8 hours of sleep every night. ? Limit and deal with stress. General instructions ? Keep a journal to find out what may bring on your migraine headaches. For example, write down: ? What you eat and drink. ? How much sleep you get. ? Any change in what you eat or drink. ? Any change in your medicines. ? If you have a migraine headache: ? Avoid things that make your symptoms worse, such as bright lights. ? It may help to lie down in a dark, quiet room. ? Do not drive or use heavy machinery. ? Ask your doctor what activities are safe for you. ? Keep all follow-up visits as told by your doctor. This is important. Contact a doctor if: ? You get a migraine headache that is different or worse than others you have had. ? You have more than 15 headache days in one month. Get help right away if: ? Your migraine headache gets very bad. ? Your migraine headache lasts longer than 72 hours. ? You have a fever. ? You have a stiff neck. ? You have trouble seeing. ? Your muscles feel weak or like you cannot control them. ? You start to lose your balance a lot. ? You start to have trouble walking. ? You pass out (faint). ? You have a seizure. Summary ? A migraine headache is a very strong throbbing pain on one side or both sides of your head. These headaches can also cause other symptoms. ? This condition may be treated with medicines and changes to your lifestyle. ? Keep a journal to find out what may bring on your migraine headaches. ? Contact a doctor if you get a migraine headache that is differe (more content not included)... [facility] 06-04-2023 Note Patient Education Ma karynials Follows:Disease Viral Illness, Adult Viruses are tiny germs that can get into a person's body and cause illness. There are many different types of viruses, and they cause many types of illness. Viral illnesses can range from mild to severe. They can affect various parts of the body. Short-term conditions that are caused by a virus include colds and the flu (influenza). Long-term conditions that are caused by a virus include herpes, shingles, and HIV (human immunodeficiency virus) infection. A few viruses have been linked to certain cancers. What are the causes? Many types of viruses can cause illness. Viruses invade cells in your body, multiply, and cause the infected cells to work abnormally or . When these cells , they release more of the virus. When this happens, you develop symptoms of the illness, and the virus continues to spread to other cells. If the virus takes over the function of the cell, it can cause the cell to divide and grow out of control. This happens when a virus causes cancer. Different viruses get into the body in different ways. You can get a virus by: ? Swallowing food or water that has come in contact with the virus (is contaminated). ? Breathing in droplets that have been coughed or sneezed into the air by an infected person. ? Touching a surface that has been contaminated with the virus and then touching your eyes, nose, or mouth. ? Being bitten by an insect or animal that carries the virus. ? Having sexual contact with a person who is infected with the virus. ? Being exposed to blood or fluids that contain the virus, either through an open cut or during a transfusion. If a virus enters your body, your body's defense system (immune system) will try to fight the virus. You may be at higher risk for a viral illness if your immune system is weak. What are the signs or symptoms? You may have these symptoms, depending on the type of virus and the location of the cells that it invades: ? Cold and flu viruses: ? Fever. ? Headache. ? Sore throat. ? Muscle aches. ? Stuffy nose (nasal congestion). ? Cough. ? Digestive system (gastrointestinal) viruses: ? Fever. ? Pain in the abdomen. ? Nausea. ? Diarrhea. ? Liver viruses (hepatitis): ? Loss of appetite. ? Tiredness. ? Skin or the white parts of your eyes turning yellow (jaundice). ? Brain and spinal cord viruses: ? Fever. ? Headache. ? Stiff neck. ? Nausea and vomiting. ? Confusion or sleepiness. ? Skin viruses: ? Warts. ? Itching. ? Rash. ? Sexually transmitted viruses: ? Discharge. ? Swelling. ? Redness. ? Rash. How is this diagnosed? This condition may be diagnosed based on one or more of the following: ? Symptoms. ? Medical history. ? Physical exam. ? Blood test, sample of mucus from your lungs (sputum sample), stool sample, or a swab of body fluids or a skin sore (lesion). How is this treated? Viruses can be hard to treat because they live within cells. Antibiotic medicines do not treat viruses because these medicines do not get inside cells. Treatment for a viral illness may include: ? Resting and drinking plenty of fluids. ? Medicines to relieve symptoms. These can include cnli-afy-xoraolw medicine for pain and fever, medicines for cough or congestion, and medicines to relieve diarrhea. ? Antiviral medicines. These medicines are available only for certain types of viruses. Some viral illnesses can be prevented with vaccinations. A common example is the flu shot. Follow these instructions at home: Medicines ? Take rxlm-nwy-qknpjtr and prescription medicines only as told by your health care provider. ? If you were prescribed an antiviral medicine, take it as told by your health care provider. Do not stop taking the antiviral even if you start to feel better. ? Be aware of when antibiotics are needed and when they are not needed. Antibiotics do not treat viruses. You may get an antibiotic if your health care provider thinks that you may have, or are at risk for, a bacterial infection and you have a viral infection. ? Do not ask for an antibiotic prescription if you have been diagnosed with a viral illness. Antibiotics will not make your illness go away faster. ? Frequently taking antibiotics when they are not needed can lead to antibiotic resistance. When this develops, the medicine no longer works against the bacteria that it normally fights. General instructions ? Drink enough fluids to keep your urine pale yellow. ? Rest as much as possible. ? Return to your normal activities as told by your health care provider. Ask your health care provider what activities are safe for you. ? Keep all follow-up visits as told by your health care provider. This is important. How is this prevented? To reduce your risk of viral illness: ? Wash your hands often with soap and water for at least 20 secon (more content not included)... [facility] 04-16-2023 Note Education Materials Obstetrics and Gynecology Menorrhagia Menorrhagia is when your monthly periods are heavy or last longer than normal. If you have this condition, bleeding and cramping may make it hard for you to do your daily activities. What are the causes? Common causes of this condition include: ? Growths in the womb (uterus). These are polyps or fibroids. These growths are not cancer. ? Problems with two hormones called estrogen and progesterone. ? One of the ovaries not releasing an egg during one or more months. ? A problem with the thyroid gland. ? Having a device for control (IUD). ? Side effects of some medicines, such as NSAIDs or blood thinners. ? A disorder that stops the blood from clotting normally. What increases the risk? You are more likely to have this condition if you have cancer of the womb. What are the signs or symptoms? ? Having to change your pad or tampon every 1?2 hours because it is soaked. ? Needing to use pads and tampons at the same time because of heavy bleeding. ? Needing to wake up to change your pads or tampons during the night. ? Passing blood clots larger than 1 inch (2.5 cm) in size. ? Having bleeding that lasts for more than 7 days. ? Having symptoms of low iron levels (anemia), such as feeling tired or having shortness of breath. How is this treated? You may not need to be treated for this condition. But if you need treatment, you may be given medicines: ? To reduce bleeding during your period. These include control medicines. ? To make your blood thick. This slows bleeding. ? To reduce swelling. Medicines that do this include ibuprofen. ? That have a hormone called progestin. ? That make the ovaries stop working for a short time. ? To treat low iron levels. You will be given iron pills if you have this condition. If medicines do not work, surgery may be done. Surgery may be done to: ? Remove a part of the lining of the womb. This lining is called the endometrium. This reduces bleeding during a period. ? Remove growths in the womb. These may be polyps or fibroids. ? Remove the entire lining of the womb. ? Remove the womb entirely. This procedure is called a hysterectomy. Follow these instructions at home: Medicines ? Take jyev-tdw-jbivsya and prescription medicines only as told by your doctor. This includes iron pills. ? Do not change or switch medicines without asking your doctor. ? Do not take aspirin or medicines that contain aspirin 1 week before or during your period. Aspirin may make bleeding worse. Managing constipation Iron pills may cause trouble pooping (constipation). To prevent or treat problems when pooping, you may need to: ? Drink enough fluid to keep your pee (urine) pale yellow. ? Take unny-est-knbkklm or prescription medicines. ? Eat foods that are high in fiber. These include beans, whole grains, and fresh fruits and vegetables. ? Limit foods that are high in fat and sugar. These include fried or sweet foods. General instructions ? If you need to change your pad or tampon more than once every 2 hours, limit your activity until the bleeding stops. ? Eat healthy meals and foods that are high in iron. Foods that have a lot of iron include: ? Leafy green vegetables. ? Meat. ? Liver. ? Eggs. ? Whole-grain breads and cereals. ? Do not try to lose weight until your heavy bleeding has stopped and you have normal amounts of iron in your blood. If you need to lose weight, work with your doctor. ? Keep all follow-up visits. Contact a doctor if: ? You soak through a pad or tampon every 1 or 2 hours, and this happens every time you have a period. ? You need to use pads and tampons at the same time because you are bleeding so much. ? You are taking medicine, and: ? You feel like you may vomit. ? You vomit. ? You have watery poop (diarrhea). ? You have other problems that may be related to the medicine you are taking. Get help right away if: ? You soak through more than a pad or tampon in 1 hour. ? You pass clots bigger than 1 inch (2.5 cm) wide. ? You feel short of breath. ? You feel like your heart is beating too fast. ? You feel dizzy or you faint. ? You feel very weak or tired. Summary ? Menorrhagia is when your menstrual periods are heavy or last longer than normal. ? You may not need to be treated for this condition. If you need treatment, you may be given medicines or have surgery. ? Take qozw-jbm-hxzzdij and prescription medicines only as told by your doctor. This includes iron pills. ? Get help right away if you soak through more than a pad or tampon in 1 hour or you pass large clots. Also, get help right away if you feel dizzy, short of breath, or very weak or tired. This information is not intended to replace advice given to you by your health care provider. Make sure you discuss any questions you have with your health care provider. Document Revised: (more content not included)... [facility] 02-27-2023 Progress note Note Date/Time February 27, 2023 7:04am [facility] [address] [place] [address] [employer] Progress Note Signed Patient: Barbra Claros MR#: [id number] : 1995 Acct:[id number] Age/Sex: 27 / F Adm Date: 3 Loc: Room: [address] [place] [address] Type: ADM IN Attending Dr: Jonathan Monahan DO Copies to: ~ Date of Service: 02/27/2023 OB - PN: Subj Subjective Post Delivery Day #: Day 1 Interval history: Patient is doing well and denies complaints. She is ambulating and urinating without difficulty. She has not had a bowel movement since delivery, but is passing flatus. Pain/cramping is tolerable. Patient reports minimal vaginal bleeding. Patient denies lightheadedness, dizziness, chest pain, shortness of breath, swelling, calf tenderness, headache, vision changes. Baby is doing welland is breast-feeding. Patient comments: no complaints and pain well controlled [place] baby status: doing well and nursing well [place] feeding status: exclusively breast feeding OB - PN: Obj Exam Physical Exam Vital signs: Vital Signs - 8 hr 02/26/23 23:03 02/26/23 23:05 02/27/23 00:05 Temperature Pulse Rate 94 H 95 H Respiratory Rate 18 18 Blood Pressure 106/59 L 110/60 02 Sat by Pulse Oximetry 98 Oxygen Delivery Method Room Air 02/27/23 00:05 02/27/23 01:00 02/27/23 02:00 Temperature 98.1 F 98.1 F Pulse Rate 68 70 Respiratory Rate 18 20 18 Blood Pressure 101/64 100/59 L 02 Sat by Pulse Oximetry 98 98 Oxygen Delivery Method Narrative: General: No acute distress. Resting comfortably in bed. HEENT: Conjunctiva are clear. No scleral icterus. CV: Regular rate and rhythm. No murmurs rubs or gallops. Respiratory: Breathing comfortably on room air. Clear to auscultation bilaterally. No wheezes, rhonchi, Rales. Abdominal: Soft, nondistended, nontender. Normal active bowel sounds. Fundus is firm 3 cm below the umbilicus. Extremities: No swelling, cyanosis, clubbing. Peripheral pulses intact. No calf tenderness. Skin: No rashes or lesions. Neuro: Sensation grossly intact. Motor function grossly intact. Psych: Good eye contact. Appropriate mood and affect. Speech is clear. Constitutional Constitutional: no acute distress Respiratory Exam Respiratory: Present CTA bilaterally; Absent accessory muscle use, patient mechanically ventilated or decreased breath sounds Cardiovascular Exam Cardiovascular: Present RRR, S1 and S2 Abdominal Exam Abdominal: Present soft and normoactive bowel sounds Fundus: Present firm Extremities Exam Extremities: Present full ROM; Absent cyanosis OB - PN: Obj Data Labs 02/26/23 15:40 Labs: 02/26/23 15:40: RPR w/Rflx to Titer Pending 02/26/23 15:40: Uncorrected WBC Count 11.5, MCV 79.4 L, MCH 25.4, MCHC 32.0, RDW15.1, Plt Count 291, MPV 7.8, Neut % (Auto) 73.1, Lymph % (Auto) 21.4, [place] % (Auto) 4.7, Eos % (Auto) 0.4, Baso % (Auto) 0.4, Nucleat RBC Rel Count 0.1, Neut# (Auto) 8.4 H, Lymph # (Auto) 2.5, [place] # (Auto) 0.5, Eos # (Auto) 0.0, Baso # (Auto) 0.0 02/26/23 13:30: Urine Opiates Screen Negative, Ur Barbiturates Screen Negative, Ur Phencyclidine Scrn Negative, Ur Amphetamines Screen Negative, U Benzodiazepines Scrn Negative, Urine Cocaine Screen Negative 02/26/23 13:30: Urine Color Yellow, Urine Appearance Cloudy A, Urine pH 6.5, Ur Specific [place] 1.016, Urine Protein Negative, Urine Glucose (UA) Normal, UrineKetones Trace H, Urine Occult Blood Negative, Urine Nitrite Negative, Urine Bilirubin Negative, Urine Urobilinogen Normal, Ur Leukocyte Esterase 3+ H, UrineRBC 0-1, Urine WBC 20-49 H, Ur Squamous Epith Cells 3-4 H, Urine Bacteria 1+ H, Hyaline Casts 0-8 Assessment/Plan Assessment (1) care following vaginal delivery: Code(s): Z39.2 - Encounter for routine follow-up Status: Acute Plan: Patient requesting discharge to home. Home instructions and follow up instructions reviewed. Plan for discharge home. Plan day: 1 Vaginal delivery plan (if applicable): routine care, discharge home and follow up 6 weeks Documented By: Sarah Egan DO 02/27/23 07 00 Signed By: <Electronically signed by Sarah Egan DO> 02/27/23 1042 [facility] Work Phone: [phone] 315-471309-10-2023 [facility] NotePatient Education Materials Follows: Shoulder Pain Many things can cause shoulder pain, including: ? An injury to the shoulder. ? Overuse of the shoulder. ? Arthritis. The source of the pain can be: ? Inflammation. ? An injury to the shoulder joint. ? An injury to a tendon, ligament, or bone. Follow these instructions at home: Pay attention to changes in your symptoms. Let your health care provider know about them. Follow these instructions to relieve your pain. If you have a sling: ? Wear the sling as told by your health care provider. Remove it only as told by your health care provider. ? Loosen the sling if your fingers tingle, become numb, or turn cold and blue. ? Keep the sling clean. ? If the sling is not waterproof: ? Do not let it get wet. Remove it to shower or bathe. ? Move your arm as little as possible, but keep your hand moving to prevent swelling. Managing pain, stiffness, and swelling ? If directed, put ice on the painful area: ? Put ice in a plastic bag. ? Place a towel between your skin and the bag. ? Leave the ice on for 20 minutes, 2?3 times per day. Stop applying ice if it does not help with the pain. ? Squeeze a soft ball or a foam pad as much as possible. This helps to keep the shoulder from swelling. It also helps to strengthen the arm. General instructions ? Take icyg-bef-mqgenxe and prescription medicines only as told by your health care provider. ? Keep all follow-up visits as told by your health care provider. This is important. Contact a health care provider if: ? Your pain gets worse. ? Your pain is not relieved with medicines. ? New pain develops in your arm, hand, or fingers. Get help right away if: ? Your arm, hand, or fingers: ? Tingle. ? Become numb. ? Become swollen. ? Become painful. ? Turn white or blue. Summary ? Shoulder pain can be caused by an injury, overuse, or arthritis. ? Pay attention to changes in your symptoms. Let your health care provider know about them. ? This condition may be treated with a sling, ice, and pain medicines. ? Contact your health care provider if the pain gets worse or new pain develops. Get help right away if your arm, hand, or fingers tingle or become numb, swollen, or painful. ? Keep all follow-up visits as told by your health care provider. This is important. This information is not intended to replace advice given to you by your health care provider. Make sure you discuss any questions you have with your health care provider. Document Revised: 02/18/2022 Document Reviewed: 02/18/2022 [email or web address] Patient Education ? 2022 [employer] Shoulder Range of Motion Exercises Shoulder range of motion (ROM) exercises are done to keep the shoulder moving freely or to increasemovement. They are often recommended for people who have shoulder pain or stiffness or who are recovering from a shoulder surgery. Phase 1 exercise When you are able, do this exercise 1?2 times per day for 30?60 seconds in each direction, or as directed by your health care provider. Pendulum exercise To do this exercise while sittin. Sit in a chair or at the edge of your bed with your feet flat on the floor. 2. Let your affected arm hang down in front of you over the edge of the bed or chair. 3. Relax your shoulder, arm, and hand. 4. Rock your body so your arm gently swings in small circles. You can also use your unaffected arm to start the motion. 5. Repeat changing the direction of the circles, swinging your arm left and right, and swinging your arm forward and back. To do this exercise while standin. Stand next to a sturdy chair or table, and hold on to it with your hand on your unaffected side. 2. Bend forward at the waist. 3. Bend your knees slightly. 4. Relax your shoulder, arm, and hand. 5. While keeping your shoulder relaxed, use body motion to swing your arm in small circles. 6. Repeat changing the direction of the circles, swinging your arm left and right, and swinging your arm forward and back. 7. Between exercises, stand up tall and take a short break to relax your lower back. Phase 2 exercises Do these exercises 1?2 times per day or as told by your health care provider. Hold each stretch for30 seconds, and repeat 3 times. Do the exercises with one or both arms as instructed by your healthcare provider. For these exercises, sit at a table with your hand and arm supported by the table. A chair that slides easily or has wheels can be helpful. External rotation 1. Turn your chair so that your affected side is nearest to the table. 2. Place your forearm on the table to your side. Bend your elbow in about a 90- degree angle (right angle) at the elbow, and place your hand palm-down on the table. Your elbow should be about 6 inches(15 cm) away from your side. 3. Keeping yo (more content not included)...[id number] Evaluation note* Encounter Date Diagnosis Assessment Notes Treatment Notes Treatment Clinical Notes Jun, Abdominal pain (ICD-10 - R10.9) Jun, Crohn's disease (ICD-10 - K50.90) achvr Other 11-08-2022 Evaluation note* Encounter Date Diagnosis Assessment Notes Treatment Notes Treatment Clinical Notes Apr, Nausea & vomiting (ICD-10 - R11.2) Apr, Abdominal pain (ICD-10 - R10.9) Apr, Blood in stool (ICD-10 - K92.1) Apr, Dysphagia (ICD-10 - R13.10) Apr, Diarrhea (ICD-10 - R19.7) achvr Other evaluation noteNo InformationNortPenn State [facility] [employer] Other evaluation noteNo assessment information available [facility] Work Phone: evaluation note* Diagnosis Onset Date Resolution Status care following vaginal delivery acute [facility] Work Phone: evaluation note* Diagnosis Chronic GERD Diarrhea, unspecified type Gas pain Flatulence, eructation, and gas pain documented [email or web address]* Diagnosis Viral upper respiratory tract infection- Primary Acute upper respiratory infections of unspecified site documented in this encounter [email or web address]* Diagnosis Postoperative pain- Primary Other acute postoperative pain Menorrhagia with regular cycle Excessive or frequent menstruation Pelvic pain Adenomyosis Endometriosis of uterus Pelvic congestion syndrome documented in this encounter [email or web address]* Diagnosis Right ovarian cyst- Primary Other and unspecified ovarian cyst documented in this [facility]* Diagnosis Pelvic pain [facility] Diagnosis Abdominal pain, right lower quadrant- Primary Pelvic pain [facility] in this [facility] Diagnosis Right ovarian cyst- Primary Other and unspecified ovarian cyst [facility] Diagnosis Right ovarian cyst- Primary Other and unspecified ovarian cyst [facility] Diagnosis Pneumoperitoneum- Primary Other specified disorder of peritoneum Pneumoperitoneum Other specified disorder of peritoneum Perforated diverticulum Peritoneal cavity free air Other specified disorder of peritoneum Postoperative pain Other acute postoperative pain Abdominal pain Abdominal pain, unspecified site Anxiety Anxiety state, unspecified [facility]* Diagnosis Right lower quadrant pain- Primary Pelvic pain in female Unspecified symptom associated with female genital organs Right ovarian cyst Other and unspecified ovarian cyst documented in this encounter [facility] HealthcareEvaluation note* Diagnosis Onset Date Resolution Status Admit Date Contact with and (suspected) exposure to covid-19 noneactive July 22 12:11pm [facility] Work Phone: Evaluation note* Diagnosis Pelvic abscess in female- Primary Change or removal of drains Other specified aftercare following surgery [facility] Diagnosis Pelvic pain- Primary Routine general medical examination at a health care facility [facility]* Diagnosis Abdominal pain in female- Primary documented in this encounter [facility] HealthcareEvaluation note* Diagnosis Abdominal pain in female- Primary documented in this encounter [facility] HealthcareEvaluation note* Diagnosis Abdominal pain in female- Primary Pelvic pain in female Unspecified symptom associated with female genital organs documented in this encounter [facility] HealthcareHistory general Narrative - Reported* Type Description Date Medical History ADHD Medical History blood transfusion Medical History headache Surgical History plasic surgery to nose from inj ury Surgical History ovarian cyst 2020 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 Martinez [facility] Work Phone: Hospital Discharge instructions* Attachments The following attachments cannot be sent through Care Everywhere. * EGD (Upper Endoscopy): Post-op (Indian) [facility] Attachments The following attachments cannot be sent through Care Everywhere. * URI (Upper Respiratory Infection): Viral (Indian) [facility]ructionsNot on file documented in this encounterPro[facility] SystemInstructionsNot on file documented in this encounterProSub[facility] SystemInstructionsNot on file documented in this encounterProSub[facility] SystemInstructionsNot on file documented in this encounterProSub[facility] SystemInstructionsNot on file documented in this encounterProSub[facility] SystemInstructionsNot on file documented in this encounterCleveland Clinic [facility] HospitalReason for referral (narrative)* Consultation (Routine) - Pending Review Specialty Diagnoses / Procedures Referred By Siomara dumas Referred To Contact Internal Medicine Diagnoses Routine general medical examination at a health care facility Lisha Owusu MD [address] [address] [facility] [address] [place] [phone] Referral ID Status Reason Start Date Expiration Date Visits Requested Visits Authorized [id number] Pending Review Specialty Services Required 02/15/2024 02/14/2025 1 1 [facility] for visit NarrativePATIENT HERE AT THE REQUEST OF DR. 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, NAUSEA& VOMITING, ABDOMINAL PAIN, BLOOD IN STOOLAnson MENA SOCIAL Other Chief Complaint and Reason for Visit Chief Complaint IUP (Intrauterine Pr egnancy) iup Chief Complaint IUP (Intrauterine Pr egnancy) iup 27 wks contractions IUP (Intrauterine ) Chief Complaint IUP (Intrauterine Pr egnancy) iup 27 wks contractions IUP (Intrauterine ) IUP (Intrauterine ) Chief Complaint IUP (Intrauterine Pr egnancy) iup 27 wks contractions IUP (Intrauterine ) IUP (Intrauterine ) 33 wks contractions Chief Complaint iup 27 wks contractions IUP (Intrauterine ) IUP (Intrauterine ) 33 wks contractions Pain and pressure in vagina and pain in back 36 weeks pressure Chief Complaint 27 wks contractions IUP (Intrauterine ) IUP (Intrauterine ) 33 wks contractions Pain and pressure in vagina and pain in back z36.85 z3a.36 36 weeks pressure iup 36 weeks Chief Complaint 27 wks contractions IUP (Intrauterine ) IUP (Intrauterine ) 33 wks contractions Pain and pressure in vagina and pain in back z36.85 z3a.36 36 weeks pressure iup 36 weeks 37 weeks iup pressure Chief Complaint 27 wks contractions IUP (Intrauterine ) IUP (Intrauterine ) 33 wks contractions Pain and pressure in vagina and pain in back z36.85 z3a.36 36 weeks pressure iup 36 weeks 37 weeks iup pressure 37wks contractions Chief Complaint 27 wks contractions IUP (Intrauterine ) IUP (Intrauterine ) 33 wks contractions Pain and pressure in vagina and pain in back z36.85 z3a.36 36 weeks pressure iup 36 weeks 37 weeks iup pressure 37wks contractions pain and pressure Reason for Visit care foll owing vaginal delivery Chief Complaint z36.85 z3a.36 36 weeks pressure iup 36 weeks 37 weeks iup pressure 37wks contractions pain and pressure Reason for Visit care foll owing vaginal delivery Chief Complaint abd pain, hx surgery Chief Complaint Admit Date Cough, Congestion, sore throat, with Jonas ole July 22, 2024 12:11pm Reason for Visit Admit Date Contact with and (suspected) exposure to covid-19 July 22, 2024 12:11pm Advance Directives No Advanced Directives Records Found Advance Directive Response Recorded Date/ Time Advance Directives No November 24 2:31pm Advance Directive Response Recorded Date/ Time Advance Directives No November 24 1:31pm Latest Code Status on File Code Status Date Activated Date Inactivated Comments Full Code 11/20/2023 11:34 AM Date Activated Date Inactivated Comments 11/20/2023 11:34 AM 11/20/2023 7:14 PM Date Activated Date Inactivated Comments 04/11/2024 1:43 AM Date Activated Date Inactivated Comments 04/10/2024 11:39 PM 04/11/2024 1:43 AM Date Activated Date Inactivated Comments 11/20/2023 11:34 AM 11/20/2023 7:14 PM Healthcare Agents on File Name Relationship Healthcare Agent Ade mckeon Communication Seth Bravo Spouse Primary Decision Maker Date Activated Date Inactivated Comments 11/27/2020 2:29 AM 11/30/2020 7:03 PM Date Activated Date Inactivated Comments 11/27/2020 2:29 AM 11/30/2020 7:03 PM Summary Purpose Family History Relationship Condition Age at Onset Recorded Date/T neeta Not Specified No pertinent family history Unknown brother Heart murmur Unknown No Family History Records Found Additional Source Comments REASON FOR VISIT (unrecogniz ed section and content) Specialty Diagnoses / Procedures Referred By Siomara dumas Referred To Contact Diagnoses Chronic GERD Diarrhea, unspecified type Gas pain K21.0WCF-89-ZACugrcak GERD R19.9NOR-36-WHSkficpuk, unspecified type R14.5TQL-88-GBSzs pain Procedures AL ESOPHAGOGASTRODUODENOSCOPY TRANSORAL DIAGNOSTIC AL EGD TRANSORAL BIOPSY SINGLE/MULTIPLE AL EGD BALLOON DILATION ESOPHAGUS <30 MM DIAM EGD Kisha Rangel MD [address] [place] [address] [facility] [id number] [place] [address] Referral ID Status Reason Start Date Expiration Date Visits Re quested Visits Authorized [id number] 1 1 Reason Comments Chest Pain Shortness of Breath Cough Patient states she b anneliese yesterday evening with cough, chest pain, and shortness of breath intermittently with cough/exertion. Specialty Diagnoses / Procedures Referred By Siomara dumas Referred To Contact Diagnoses Menorrhagia with regular cycle Pelvic pain Adenomyosis Pelvic congestion syndrome Menorrhagia with regular cycle [N92.0] Pelvic pain [R10.2] Adenomyosis [N80.03] Pelvic congestion syndrome [N94.89] Procedures AL LAPS TOTAL HYSTERECT 250 GM/< W/RMVL TUBE/OVARY HYSTERECTOMY VAGINAL LAPAROSCOPIC ROBOTIC ASSISTED - POSSIBLE BILATERAL SALPINGOOPHORECTOMY, POSSIBLE LAPAROSCOPIC COLPOPEXY Mickie Barrientos, DO [address] [place] [address] [facility] [address] [place] [address] Referral ID Status Reason Start Date Expiration Date Visits Re quested Visits Authorized [id number] 1 1 Reason Comments Abdominal Pain Pt to ED from home w ith c/o mid-lower abd pain and nausea.Onset of symptom x2 days ago.Pt admitted into [facility] with c/o abscess with drainage tube.Drainage x1.5-2 weeks ago. Pt also placed on antibiotic (completed 3 days ago). Incisional Pain Pt also report incis ional pain and warmth.Pt noticed the area this am. urinary problems Pt reports being noe ble to empty bladder completely.Pt states she's feeling pressure.All the aforementioned symptoms similar to when pt was septic. Reason Comments Leg Pain Right leg pain and t ingling started last night has had same symptom after hysterectomy 11/20/23 along with complications since surgery Abdominal Pain Reason Comments Flank Pain Right flank pain rad iates to right groin. Has history of kidney stones. States after hysterectomy in November had postop abscess Reason Comments Abdominal Pain Lower right abdomina l pain with pain of the right side, hx of cyst on right ovary. Patient describes pain as cramping increasing with movement. Reason Comments Cyst Reports hx ovarian c yst. Seen here last week for same issue. Reports increase in pain from last week radiating down legs. Nausea, decreased appetite. Unable to get into her OB until this Monday. Reports improvement in pain with percocet, but ran out. Currently taking tylenol and ibuprofen with no relief. Reason Comments Abdominal Pain Right ovarian cyst p ain that radiates through abdomin and back, patient seen in ED yesterday for same complaint. Pain worsens with walking and nausea. Specialty Diagnoses / Procedures Referred By Siomara t Referred To Contact Diagnoses Pneumoperitoneum Perforated diverticulum Nicolette Wyman MD [address] [place] [address] [facility] [address] [place] [address] Referral ID Status Reason Start Date Expiration Date Visits Re quested Visits Authorized [id number] 1 1 Reason Onset Date Comments Pain 01/14/2024 Weakness - Generalized 01/14/2024 Reason Onset Date Comments Medication Request 01/13/2024 Reason Comments IR drain follow up Reason Comments Ovarian Cyst Er Follow-up Care Teams (unrecognized sec tion and content) Team Status: Active Member Role Status Dates PHYSICIAN NO FAMILY Primary Care Provider Active Team Status: Inactive Member Role Status Dates PHYSICIAN NO FAMILY Primary Care Provider Active Juany Oropeza DO Attending Provider Active Team Status: Inactive Member Role Status Dates PHYSICIAN NO FAMILY Primary Care Provider Active Jonathan Monahan DO Attending Provider Active Team Status: Active Member Role Status Dates Ar Gurrola MD Primary Care Provider Active Team Status: Inactive Member Role Status Dates Ar Gurrola MD Attending Provider Active Team Status: Inactive Member Role Status Dates Ar Gurrola MD Primary Care Provider Active Melinda Beltre MD Attending Provider Active Team Status: Inactive Member Role Status Dates Ar Gurrola MD Attending Provider Active PHYSICIAN NO FAMILY Primary Care Provider Active Team Status: Inactive Member Role Status Dates PHYSICIAN NO FAMILY Primary Care Provider Active Ar Gurrola MD Attending Provider Active Team Status: Inactive Member Role Status Dates PHYSICIAN NO FAMILY Primary Care Provider Active Melinda Beltre MD Attending Provider Active Team Status: Inactive Member Role Status Dates PHYSICIAN NO FAMILY Primary Care Provider Active Jonathan Monahan DO Admit Provider, Attending Provider Active Skein Mercerizing Machine Operator Relationship Specialty Start Date End Date Lauryn Huang APRN - [facility] [address] [place] [address] PCP - General Nurse Practitioner 07/14/23 Skein Mercerizing Machine Operator Relationship Specialty Start Date End Date Lauryn Huang APRN [facility] [address] [place] [address] PCP - General Nurse Practitioner 07/14/23 Skein Mercerizing Machine Operator Relationship Specialty Start Date End Date Lauryn Huang APRN [facility] [address] [place] [address] PCP - General Nurse Practitioner 07/14/23 Team Status: Inactive Member Role Status Dates PHYSICIAN NO FAMILY Primary Care Provider Active Start: January 08, 2024 End: January 08, 2024 Nikhil Quiñones PA-C Emergency Provider Active Start: January 08, 2024 End: January 08, 2024 Skein Mercerizing Machine Operator Relationship Specialty Start Date End Date Lauryn Huang APRN - CNP [address] [place] [address] PCP - General Nurse Practitioner 07/14/23 Skein Mercerizing Machine Operator Relationship Specialty Start Date End Date Lauryn Huang APRN - [facility] [address] [place] [address] PCP - General Nurse Practitioner 07/14/23 Skein Mercerizing Machine Operator Relationship Specialty Start Date End Date Lauryn Huang APRN - [facility] [address] [place] [address] PCP - General Nurse Practitioner 07/14/23 Skein Mercerizing Machine Operator Relationship Specialty Start Date End Date Lauryn Huang APRN - [facility] [address] [place] [address] PCP - General Nurse Practitioner 07/14/23 Skein Mercerizing Machine Operator Relationship Specialty Start Date End Date Lauryn Huang APRN - [facility] [address] [place] [address] PCP - General Nurse Practitioner 07/14/23 Skein Mercerizing Machine Operator Relationship Specialty Start Date End Date Lauryn Huang APRN - [facility] [address] [place] [address] PCP - General Nurse Practitioner 07/14/23 Skein Mercerizing Machine Operator Relationship Specialty Start Date End Date Lauryn Huang APRN - [facility] [address] [place] [address] PCP - General Nurse Practitioner 07/14/23 Skein Mercerizing Machine Operator Relationship Specialty Start Date End Date Unallocated, Juliet ProviderMD [address] [place] [address] PCP - General 12/01/22 Ar Gurrola MD [address] [facility] [address] [place] [address] Obstetrics and Gynecology 03/08/23 Skein Mercerizing Machine Operator Relationship Specialty Start Date End Date Unallocated, Juliet ProviderMD [address] [facility] [place] [address] PCP - General 12/01/22 Ar Gurrola MD [address] [facility] [address] [place] [address] Obstetrics and Gynecology 03/08/23 Team Status: Inactive Member Role Status Dates PHYSICIAN NO FAMILY Primary Care Provider Active Start: July 22, 2024 End: July 22, 2024 Fe Cruz APRN Attending Provider Active S tart: July 22, 2024 End: July 22, 2024 Skein Mercerizing Machine Operator Relationship Specialty Start Date End Date Lauryn Huang APRN-[facility] [address], [place] [address] PCP - General Family Medicine 01/11/22 Skein Mercerizing Machine Operator Relationship Specialty Start Date End Date Lauryn Huang APRN-[facility] [address], [place] [address] PCP - General Family Medicine 01/11/22 Skein Mercerizing Machine Operator Relationship Specialty Start Date End Date Jeannette Huangith A, [facility] [address], [address] [place] [address] PCP - General Family Medicine 01/11/22 Skein Mercerizing Machine Operator Relationship Specialty Start Date End Date Lauryn Huang [facility] [address], [facility] [place] [address] PCP - General Family Medicine 01/11/22 Skein Mercerizing Machine Operator Relationship Specialty Start Date End Date ReinaLauryn givens, [facility] [address], [facility] [place] [address] PCP - General Family Medicine 01/11/22 Skein Mercerizing Machine Operator Relationship Specialty Start Date End Date No Pcp, [place] [address] PCP - General Family Medicine 02/07/24 Skein Mercerizing Machine Operator Relationship Specialty Start Date End Date Unallocated, Barts MD [facility] [address] [place] [address] PCP - General 12/01/22 Ar Gurrola MD [address] [address] Obstetrics and Gynecology 03/08/23 Skein Mercerizing Machine Operator Relationship Specialty Start Date End Date Unallocated, Juliet Ivan MD [address] [place] [address] PCP - General 12/01/22 Ar Gurrola MD [address] [facility] [address] [place] [address] Obstetrics and Gynecology 03/08/23 Goals (unrecognized section and content) Goals may be documented in a n alternate section PRN Active and Recently Administ ered Medications (unrecognized section and content) Medication Order 07/23/2023 07/24/2023 07/25/2023 levalbuterol (XOPENEX) nebulizer solution 1.25 mg 1.25 mg, Nebulization, EVERY 8 HOURS PRN, Starting on Mon07/25/23 at 0942, Until Discontinued, Wheezing 0945 (Given - Provid er: Annmarie Champagne RCP) sterile water for irrigation (CANCELED) PRN, Starting on Mon07/25/23 at 0937, Intra-op 0937 (Given - Provid er: Kisha Rangel MD) Scheduled Medication Order 08/13/2023 08/14/2023 08/15/2023 benzonatate (TESSALON) capsule 200 mg (COMPLETED) 200 mg, Oral, ONCE, 1 dose, On Mon08/15/23 at 2014 2024 (Given - Provid er: Radha Barreto RN) dexAMETHasone (DECADRON) Oral 10 mg (COMPLETED) 10 mg, Oral, ONCE, On Mon08/15/23 at 2014, For 1 dose 2024 (Given - Provid er: Radha Barreto RN) ipratropium 0.5 mg-albuterol 2.5 mg (DUONEB) nebulizer solution 1 Dose (COMPLETED) 1 Dose, Inhalation, ONCE, 1 dose, On Mon08/15/23 at 2014, Initiate RT Bronchodilator Protocol: No 2031 (Given - Provid er: Carmita Tadeo RCP) Scheduled Medication Order 11/18/2023 11/19/2023 11/20/2023 ceFAZolin (ANCEF) 2000 mg in 0.9% sodium chloride 100 mL IVPB (COMPLETED) 2,000 mg, IntraVENous, TAPE KELLER OPERATOR TO O.R., 1 dose, On Mon11/20/23 at 1200, Antimicrobial Indications: Surgical Prophylaxis, Administer within 1 hour prior to incision., Pre-op (day of surgery) 1353 (New Bag - Prov ider: Brynn Friend RN)1423 (Stopped - Provider: Krystal Mejia RN - Comment: stopped in OR) dimenhyDRINATE (DRAMAMINE) tablet 50 mg (COMPLETED) 50 mg, Oral, ONCE, 1 dose, On Mon11/20/23 at 1200, Pre-op (day of surgery) 1201 (Given - Provid er: Katherine Zhang RN) enoxaparin (LOVENOX) injection 40 mg (COMPLETED) 40 mg, SubCUTAneous, ONCE, 1 dose, On Mon11/20/23 at 1200, Indication of Use: Prophylaxis-DVT/PE, Administer by deep subCUTAneous injection with pt lying down. Alternate injection sites on abdominal wall. Do not rub site after injection. Check with provider prior to any invasive procedure., Pre-op (day of surgery) 1202 (Given - Provid er: Katherine Zhang RN) sodium chloride flush 0.9 % injection 5-40 mL 5-40 mL, IntraVENous, EVERY 12 HOURS SCHEDULED (2 times per day), First dose on Mon11/20/23 at 2100, Until Discontinued, For Line Patency: Peripheral IV = 5 mL; Midline or Central Line = 10 mL/lumen. If following IV push medication, administer flush at same rate as the IV push. Flush volume is determined by type of infusion therapy being given. For non-viscous solutions use: Peripheral IV = 5 mL Midline or Central Line = 10 mL/lumen For viscous solutions (i.e. blood components, parenteral nutrition, contrast media, or after obtaining blood sample) use: Peripheral IV = 10 mL Midline or Central Line = 20 mL/lumen, Pre-op (day of surgery) 2100 (Due) sodium chloride flush 0.9 % injection 5-40 mL 5-40 mL, IntraVENous, EVERY 12 HOURS SCHEDULED (2 times per day), First dose on Mon11/20/23 at 2100, Until Discontinued, For Line Patency: Peripheral IV = 5 mL; Midline or Central Line = 10 mL/lumen. If following IV push medication, administer flush at same rate as the IV push. Flush volume is determined by type of infusion therapy being given. For non-viscous solutions use: Peripheral IV = 5 mL Midline or Central Line = 10 mL/lumen For viscous solutions (i.e. blood components, parenteral nutrition, contrast media, or after obtaining blood sample) use: Peripheral IV = 10 mL Midline or Central Line = 20 mL/lumen, PACU only 2100 (Due) Continuous Medication Order 11/18/2023 11/19/2023 11/20/2023 lactated ringers IV soln infusion IntraVENous, at 100 mL/hr, CONTINUOUS, Starting on Mon11/20/23 at 1200, Pre-op (day of surgery) 1208 (New Bag - Prov ider: Katherine Zhang RN)1356 (NoRateChange - Provider: Yancy Solorzano CLINICAL QUALITY MANAGER FOOD PRESERVATION SCIENTIST)1505 (Paused - Provider: Haylee Keen APRN FOOD PRESERVATION SCIENTIST - Comment: Switch to gravity)1506 (New Bag - Provider: Haylee Keen APRN FOOD PRESERVATION SCIENTIST)1530 (Anesthesia Volume Adjustment - Provider: Haylee Keen APRN FOOD PRESERVATION SCIENTIST) PRN Medication Order 11/18/2023 11/19/2023 11/20/2023 0.9 % sodium chloride infusion IntraVENous, at 5-250 mL/hr, PRN, if patient receiving piggyback infusions and maintenance fluids are not ordered OR KVO fluids to protect IV site / prevent frequent line interruptions/ long duration, Starting on Mon11/20/23 at 1134, For piggyback infusion, administer at same rate as piggyback for a total of 25 mL. Enter 25 mL into dose field and piggyback rate into rate field of order. If piggyback is infusing at a rate less than 100 mL/hr, enter 25 mL into dose field and 100 mL/hr into rate field of order. For KVO fluids, enter rate of 20 mL/hr or less into rate field of order., Pre-op (day of surgery) 0.9 % sodium chloride infusion IntraVENous, at 5-250 mL/hr, PRN, if patient receiving piggyback infusions and maintenance fluids are not ordered OR KVO fluids to protect IV site / prevent frequent line interruptions/ long duration, Starting on Mon11/20/23 at 1611, For piggyback infusion, administer at same rate as piggyback for a total of 25 mL. Enter 25 mL into dose field and piggyback rate into rate field of order. If piggyback is infusing at a rate less than 100 mL/hr, enter 25 mL into dose field and 100 mL/hr into rate field of order. For KVO fluids, enter rate of 20 mL/hr or less into rate field of order., PACU only fentaNYL (SUBLIMAZE) injection 25 mcg 25 mcg, IntraVENous, EVERY 5 MIN PRN, 2 doses, Starting on Mon11/20/23 at 1611, Until Discontinued, Pain Moderate (4-6), For Phase I. If Phase II oral narcotics have been administered in the last 60 minutes, do not administer IV narcotics unless specifically approved by provider., PACU only fentaNYL (SUBLIMAZE) injection 50 mcg 50 mcg, IntraVENous, EVERY 5 MIN PRN, 2 doses, Starting on Mon11/20/23 at 1611, Until Discontinued, Pain Severe (7-10), For Phase I. If Phase II oral narcotics have been administered in the last 60 minutes, do not administer IV narcotics unless specifically approved by provider., PACU only metoclopramide (REGLAN) injection 10 mg 10 mg, IntraVENous, ONCE PRN, 1 dose, Starting on Mon11/20/23 at 1611, Until Mon11/21/23 at 1611, Nausea, Initial antiemetic therapy., PACU only naloxone 0.4 mg in 10 mL sodium chloride syringe IntraVENous, PRN, Opioid Reversal, Starting on Mon11/20/23 at 1611, PRN if respiratory rate is less than 6/min and patient is difficult to arouse then notify physician STAT. Mix 9 mL of sodium chloride 0.9% with 0.4 mg (1 mL) of naloxone (NARCAN) in 10 mL syringe. (Note: dilution is 0.04 mg/mL) Give 0.08 mg (2 mL of special dilution), slow IV push, repeat up to 0.4 mg (10 mL) or until patient is responsive to physical stimulation and respiratory rate is equal to or greater than 6 breaths/min. Continue to observe, if no response within 3 minutes of administration of 0.4 mg (10 mL) total, repeat dose (0.4 mg as administered previously). Concentration 0.04 mg/mL, PACU only oxyCODONE (ROXICODONE) immediate release tablet 5 mg (COMPLETED) 5 mg, Oral, ONCE PRN, 1 dose, Starting on Mon11/20/23 at 1422, Until Mon11/21/23 at 1422, Pain Moderate (4-6), Pain Severe (7-10) 1614 (Given - Provid er: Krystal Mejia RN) prochlorperazine (COMPAZINE) injection 5 mg 5 mg, IntraVENous, ONCE PRN, 1 dose, Starting on 11/20/23 at 1611, Until 11/21/23 at 1611, Nausea, Secondary antiemetic therapy., PACU only sodium chloride flush 0.9 % injection 5-40 mL 5-40 mL, IntraVENous, PRN, Starting on 11/20/23 at 1134, Until Discontinued, Line Care, After every IV line use, For Line Patency: Peripheral IV = 5 mL; Midline or Central Line = 10 mL/lumen. If following IV push medication, administer flush at same rate as the IV push. Flush volume is determined by type of infusion therapy being given. For non-viscous solutions use: Peripheral IV = 5 mL Midline or Central Line = 10 mL/lumen For viscous solutions (i.e. blood components, parenteral nutrition, contrast media, or after obtaining blood sample) use: Peripheral IV = 10 mL Midline or Central Line = 20 mL/lumen, Pre-op (day of surgery) sodium chloride flush 0.9 % injection 5-40 mL 5-40 mL, IntraVENous, PRN, Starting on Mon11/20/23 at 1611, Until Discontinued, Line Care, After every IV line use, For Line Patency: Peripheral IV = 5 mL; Midline or Central Line = 10 mL/lumen. If following IV push medication, administer flush at same rate as the IV push. Flush volume is determined by type of infusion therapy being given. For non-viscous solutions use: Peripheral IV = 5 mL Midline or Central Line = 10 mL/lumen For viscous solutions (i.e. blood components, parenteral nutrition, contrast media, or after obtaining blood sample) use: Peripheral IV = 10 mL Midline or Central Line = 20 mL/lumen, PACU only Scheduled Medication Order 02/02/2024 02/03/2024 02/04/2024 ketorolac (TORADOL) injection 30 mg (COMPLETED) 30 mg, IntraVENous, ONCE, 1 dose, On 02/04/24 at 0000, Do not administer for more than 5 days. 6267 (Given - Provider: Meli Wills RN) morphine injection 4 mg (COMPLETED) 4 mg, IntraVENous, ONCE, 1 dose, On 02/03/24 at 2130, If oral and IV narcotics ordered, use oral first and only use IV if oral is ineffective or cannot take oral. Do Not give oral and IV within 1 hour of each other unless specifically ordered. 2128 (Given - Provider: Meli Wills RN) ondansetron (ZOFRAN) injection 4 mg (COMPLETED) 4 mg, IntraVENous, ONCE, 1 dose, On 02/03/24 at 2130 212 (Given - Provider: Meli Wills RN) PRN Medication Order 02/02/2024 02/03/2024 02/04/2024 iopamidol (ISOVUE-370) 76 % injection 75 mL (COMPLETED) 75 mL, IntraVENous, IMG ONCE PRN, 1 dose, Starting on 02/03/24 at 2130, Until 02/03/24 at 2141, Other 2140 (Given - Provider: Radha Avilez) Scheduled Medication Order 02/05/2024 02/06/2024 02/07/2024 HYDROmorphone HCl PF (DILAUDID) injection 1 mg (COMPLETED) 1 mg, IntraVENous, ONCE, 1 dose, On Mon02/07/24 at 1430, If oral and IV narcotics ordered, use oral first and only use IV if oral is ineffective or cannot take oral. Do Not give oral and IV within 1 hour of each other unless specifically ordered. 1441 (Given - Provid er: María Elena Baltazar RN - Comment: [employer] not crossing over, dilaudid 2mg per ml pulled, 1mg given. Will document waste in [employer], 1mg to waste or 0.5 ml.) ketorolac (TORADOL) injection 30 mg (COMPLETED) 30 mg, IntraVENous, ONCE, 1 dose, On Mon02/07/24 at 1200, Do not administer for more than 5 days. 1211 (Given - Provid er: Sarai Claros RN) sodium chloride 0.9 % bolus 1,000 mL (COMPLETED) 1,000 mL (13.8 mL/kg), IntraVENous, at 983.6 mL/hr, Administer over 61 Minutes, ONCE, On Mon02/07/24 at 1200, For 1 dose, For adult patients weighing > 55 kg (120 lbs.) and less than <50 years of age initiate 0.9NS at 500 mL/ hr. All bolus orders are to be given over 10 to 15 minutes 1200 ([facility] - Prov ider: Meli Sousa RN)1313 (Stopped - Provider: Meli Sousa RN) PRN Medication Order 02/05/2024 02/06/2024 02/07/2024 iopamidol (ISOVUE-370) 76 % injection 75 mL (COMPLETED) 75 mL, IntraVENous, IMG ONCE PRN, 1 dose, Starting on Mon02/07/24 at 1203, Until Mon02/07/24 at 1203, Other 1203 (Given - Provid er: Gerard Cadena) No Frequency Medication Order 02/05/2024 02/06/2024 02/07/2024 HYDROmorphone (DILAUDID) 2 MG/ML injection 1 dose, Starting on Mon02/07/24 at 1429, Until Mariajose 02/08/24 at 0244, María Elena Baltazar: cabinet override, María Elena Baltazar: cabinet override 1445 (Due) Scheduled Medication Order 03/15/2024 03/16/2024 03/17/2024 fentaNYL (SUBLIMAZE) injection 25 mcg (COMPLETED) 25 mcg, IntraVENous, ONCE, 1 dose, On 03/17/24 at 1045, If oral and IV narcotics ordered, use oral first and only use IV if oral is ineffective or cannot take oral. Do Not give oral and IV within 1 hour of each other unless specifically ordered. 1047 (Given - Provid er: Albertina Gibbs RN) morphine injection 4 mg 4 mg, IntraVENous, ONCE, 1 dose, On 03/17/24 at 1200, If oral and IV narcotics ordered, use oral first and only use IV if oral is ineffective or cannot take oral. Do Not give oral and IV within 1 hour of each other unless specifically ordered. 1229 (Not Given - Pr ovider: Albertina Gibbs RN - Reason: Other - Comment: patient is leaving AMA) ondansetron (ZOFRAN) injection 4 mg 4 mg, IntraVENous, ONCE, 1 dose, On 03/17/24 at 1200 1257 (Not Given - Pr ovider: Albertina Gibbs RN - Reason: Other - Comment: leaving AMA) prochlorperazine (COMPAZINE) injection 10 mg (COMPLETED) 10 mg, IntraVENous, ONCE, 1 dose, On 03/17/24 at 1045, If administering IV push, administer at a maximum rate of 5 mg/minute. Patients should remain lying down following administration and be reassessed for relief of nausea and presence of hypotension. Patients should be assisted the first time they get up after administration. 1045 (Given - Provid er: Albertina Gibbs RN) sodium chloride 0.9 % bolus 1,000 mL (COMPLETED) 1,000 mL, IntraVENous, at 2,000 mL/hr, Administer over 30 Minutes, ONCE, On Mon03/17/24 at 1045, For 1 dose 1044 (New Bag - Prov ider: Albertina Gibbs RN)1114 (Stopped - Provider: Albertina Gibbs RN) PRN Medication Order 03/15/2024 03/16/2024 03/17/2024 iopamidol (ISOVUE-370) 76 % injection 75 mL (COMPLETED) 75 mL, IntraVENous, IMG ONCE PRN, 1 dose, Starting on Mon03/17/24 at 1046, Until Mon03/17/24 at 1052, Other 1052 (Given - Provid er: Geni Garcia) Scheduled Medication Order 03/31/2024 04/01/2024 04/02/2024 morphine injection 4 mg (COMPLETED) 4 mg, IntraVENous, ONCE, 1 dose, On Mon04/02/24 at 1015 1038 (Given - Provid er: Zoey Guerrero RN) morphine injection 4 mg (COMPLETED) 4 mg, IntraVENous, ONCE, 1 dose, On Mon04/02/24 at 1230 1253 (Given - Provid er: Zoey Guerrero RN) ondansetron (ZOFRAN) injection 4 mg (COMPLETED) 4 mg, IntraVENous, ONCE, 1 dose, On Mon04/02/24 at 1015 1038 (Given - Provid er: Zoey Guerrero RN) PRN Medication Order 03/31/2024 04/01/2024 04/02/2024 iopamidol (ISOVUE-370) 76 % injection 75 mL (COMPLETED) 75 mL, IntraVENous, IMG ONCE PRN, 1 dose, Starting on Mon04/02/24 at 1222, Until Mon04/02/24 at 1225, Other 1225 (Given - Provid er: Lori Cotter) Scheduled Medication Order 04/07/2024 04/08/2024 04/09/2024 ketorolac (TORADOL) injection 30 mg (COMPLETED) 30 mg, IntraVENous, ONCE, 1 dose, On Mon04/09/24 at 1145, Do not administer for more than 5 days. 1144 (Given - Provid er: Abby De Souza, RN) ondansetron (ZOFRAN) injection 4 mg (COMPLETED) 4 mg, IntraVENous, ONCE, 1 dose, On Mon04/09/24 at 1200 1151 (Given - Provid er: Abby De Souza RN) Scheduled Medication Order 04/14/2024 04/15/2024 04/16/2024 bisacodyl (DULCOLAX) suppository 10 mg (COMPLETED) 10 mg, Rectal, ONCE, 1 dose, On Mon04/15/24 at 0730 0738 (Given - Provider: Juanis Contreras, HENNA) docusate sodium (COLACE) capsule 100 mg 100 mg, Oral, 2 TIMES DAILY, First dose on Mon04/14/24 at 2100, Until Discontinued, Do not crush or break. 2132 (Given - Provider: Madeleine Brewer RN) 0835 (Given - Provider: Juanis Contreras, HENNA)2046 (Given - Provider: Ivy Schmid RN) 0736 (Given - Provider: Juanis Contreras RN)2100 (Due) enoxaparin (LOVENOX) injection 40 mg 40 mg, SubCUTAneous, DAILY, First dose on Mariajose 04/11/24 at 0900, Until Discontinued, Indication of Use: Prophylaxis-DVT/PE, Administer by deep subCUTAneous injection with pt lying down. Alternate injection sites on abdominal wall. Do not rub site after injection. Check with provider prior to any invasive procedure. 0817 (Given - Provider: Ayana Rodriguez RN) 0836 (Given - Provider: Juanis Contreras RN) 0735 (Given - Provider: Juanis Contreras RN) gabapentin (NEURONTIN) capsule 300 mg 300 mg, Oral, 3 TIMES DAILY, First dose (after last modification) on Mon04/14/24 at 0900, Until Discontinued 0817 (Given - Provider: Ayana Rodriguez RN)1402 (Given - Provider: Ayana Rodriguez RN)2132 (Given - Provider: Madeleine Brewer RN) 0835 (Given - Provider: Juanis Contreras RN)135 (Given - Provider: Juanis Contreras, RN)2046 (Given - Provider: Ivy Schmid, RN) 0735 (Given - Provider: Juanis Contreras RN)1403 (Given - Provider: Juanis Contreras RN)2100 (Due) lactated ringers bolus 1,000 mL 1,000 mL, IntraVENous, at 983.6 mL/hr, Administer over 61 Minutes, ONCE, On Mon04/10/24 at 2130, For 1 dose, STAT potassium chloride (KLOR-CON M) extended release tablet 40 mEq (COMPLETED) 40 mEq, Oral, ONCE, 1 dose, On Mon04/14/24 at 0845, Do not crush, chew, or suck on tablet. Tablet may also be broken in half and each half swallowed separately. 0834 (Given - Provider: Ayana Rodriguez RN) promethazine (PHENERGAN) 12.5mg in sodium chloride 0.9% 50 mL IVPB SOLN 12.5 mg (COMPLETED) 12.5 mg, IntraVENous, at 100 mL/hr, Administer over 30 Minutes, ONCE, On 04/14/24 at 1900, For 1 dose, Administer via antecubital vein or higher. 1920 (New Bag - Provider: Madeleine Brewer RN)1950 (Stopped - Provider: Madeleine Brewer RN) sodium chloride flush 0.9 % injection 10 mL 10 mL, IntraVENous, EVERY 12 HOURS SCHEDULED (2 times per day), First dose on Mariajose 04/11/24 at 0900, Until Discontinued 08 (Given - Provider: Ayana Rodriguez RN)191 (Given - Provider: Madeleine Brewer RN) 0836 (Given - Provider: Juanis Contreras, RN)204 (Given - Provider: Ivy Schmid, RN) 0740 (Given - Provider: Juanis Contreras, RN)2100 (Due) venlafaxine (EFFEXOR XR) extended release capsule 75 mg 75 mg, Oral, DAILY WITH BREAKFAST, First dose on 04/14/24 at 0815, Until Discontinued, Do not crush or break. 0817 (Given - Provider: Ayana Rodriguez RN) 0835 (Given - Provider: Juanis A West, RN) 0736 (Given - Provider: Juanis Contreras RN) Continuous Medication Order 04/14/2024 04/15/2024 04/16/2024 dextrose 5 % and 0.45 % NaCl with KCl 20 mEq infusion (CANCELED) IntraVENous, at 100 mL/hr, CONTINUOUS, Starting on Mon04/12/24 at 0715, On hold since Mon04/15/2024 at 0621 until manually unheld 0107 (New Bag - Provider: Ivy Schmid RN)1128 (New Bag - Provider: Ayana Rodriguez, HENNA)2139 (New Bag - Provider: Madeleine Brewer, HENNA) 0621 (Held by provider - Provider: Nicolette Wyman MD - Reason: Other)0800 (Stopped - Provider: Juanis Contreras RN)0904 (Unheld by provider - Provider: Brandee Rivera, CLINICAL QUALITY MANAGER - ENTRY LEVEL [employer]) PRN Medication Order 04/14/2024 04/15/2024 04/16/2024 0.9 % sodium chloride infusion IntraVENous, at 5-250 mL/hr, PRN, if patient receiving piggyback infusions and maintenance fluids are not ordered OR KVO fluids to protect IV site / prevent frequent line interruptions/ long duration, Starting on Mariajose 04/11/24 at 0143, For piggyback infusion, administer at same rate as piggyback for a total of 25 mL. Enter 25 mL into dose field and piggyback rate into rate field of order. If piggyback is infusing at a rate less than 100 mL/hr, enter 25 mL into dose field and 100 mL/hr into rate field of order. For KVO fluids, enter rate of 20 mL/hr or less into rate field of order. ALPRAZolam (XANAX) tablet 0.25 mg 0.25 mg, Oral, 2 TIMES DAILY PRN, Starting on 04/14/24 at 0610, Until Discontinued, Anxiety 0623 (Given - Provider: Ayana Rodriguez, HENNA) 0734 (Given - Provider: Juanis Contreras RN) HYDROmorphone (DILAUDID) injection 0.25 mg (CANCELED)(Linked Group 1) 0.25 mg, IntraVENous, EVERY 3 HOURS PRN, Starting on Mon04/12/24 at 0656, Until Mon04/16/24 at 0640, Pain Moderate (4-6), If oral and IV narcotics ordered, use oral first and only use IV if oral is ineffective or cannot take oral. Do Not give oral and IV within 1 hour of each other unless specifically ordered. 1638 (See Alternative - Provider: Ayana Rodriguez RN)213 (See Alternative - Provider: Madeleine Brewer RN) 025 (See Alternative - Provider: Madeleine Brewer RN) 0011 (Given - Provider: Ivy Schmid RN) HYDROmorphone (DILAUDID) injection 0.5 mg (CANCELED)(Linked Group 1) 0.5 mg, IntraVENous, EVERY 3 HOURS PRN, Starting on Mon04/12/24 at 0656, Until 04/15/24 at 0708, Pain Severe (7-10), If oral and IV narcotics ordered, use oral first and only use IV if oral is ineffective or cannot take oral. Do Not give oral and IV within 1 hour of each other unless specifically ordered. 1638 (Given - Provider: Ayana Rodriguez RN)2133 (Given - Provider: Madeleine Brewer RN) 025 (Given - Provider: Madeleine Brewer RN) 0011 (See Alternative - Provider: Ivy Schmid RN) ondansetron (ZOFRAN) injection 4 mg(Linked Group 2) 4 mg, IntraVENous, EVERY 6 HOURS PRN, Starting on Mariajose 04/11/24 at 0143, Until Discontinued, Nausea, Vomiting, Administer if oral route cannot be used. 0113 (Given - Provider: Ivy Schmid RN)0817 (Given - Provider: Ayana Rodriguez RN)1417 (Given - Provider: Ayana Rodriguez RN) 0100 (Given - Provider: Madeleine Brewer RN)0734 (See Alternative - Provider: Juanis Contreras RN) ondansetron (ZOFRAN-ODT) disintegrating tablet 4 mg(Linked Group 2) 4 mg, Oral, EVERY 8 HOURS PRN, Starting on Mariajose 04/11/24 at 0143, Until Discontinued, Nausea, Vomiting 0113 (See Alternative - Provider: Ivy Schmid RN)0817 (See Alternative - Provider: Ayana Rodriguez RN)1417 (See Alternative - Provider: Ayana Rodriguez RN) 0100 (See Alternative - Provider: Madeleine Brewer, RN)0734 (Given - Provider: Juanis Contreras RN) oxyCODONE-acetaminophen (PERCOCET) 5-325 MG per tablet 1 tablet(Linked Group 3) 1 tablet, Oral, EVERY 4 HOURS PRN, Starting on 04/13/24 at 1008, Until Discontinued, Pain Moderate (4-6), Maximum dose of acetaminophen is 4000 mg from all sources in 24 hours. 0338 (See Alternative - Provider: Ivy Schmid RN)0816 (See Alternative - Provider: Ayana Rodriguez RN)1401 (See Alternative - Provider: Ayana Rodriguez RN)1925 (See Alternative - Provider: Madeleine Brewer RN) 0100 (See Alternative - Provider: Madeleine Brewer RN)0725 (See Alternative - Provider: Juanis Contreras RN)1246 (See Alternative - Provider: Juanis Contreras RN)1847 (See Alternative - Provider: Ivy Schmid RN)2232 (See Alternative - Provider: Ivy Schmid RN) 0328 (See Alternative - Provider: Ivy Schmid RN)0736 (See Alternative - Provider: Juanis Contreras RN)1137 (See Alternative - Provider: Juanis Contreras RN)1536 (See Alternative - Provider: Juanis Contreras RN) oxyCODONE-acetaminophen (PERCOCET) 5-325 MG per tablet 2 tablet(Linked Group 3) 2 tablet, Oral, EVERY 4 HOURS PRN, Starting on 04/13/24 at 1008, Until Discontinued, Pain Severe (7-10), Maximum dose of acetaminophen is 4000 mg from all sources in 24 hours. 0338 (Given - Provider: Ivy Schmid RN)0816 (Given - Provider: Ayana Rodriguez RN)1401 (Given - Provider: Ayana Rodriguez RN)1925 (Given - Provider: Madeleine Brewer RN) 0100 (Given - Provider: Madeleine Brewer RN)0725 (Given - Provider: Juanis Contreras RN)1246 (Given - Provider: Juanis Contreras RN)1847 (Given - Provider: Ivy Schmid RN)2232 (Given - Provider: Ivy Schmid RN) 0328 (Given - Provider: Ivy Schmid RN)0736 (Given - Provider: Juanis Contreras, RN)1137 (Given - Provider: Juanis Contreras, RN)1536 (Given - Provider: Juanis Contreras RN) polyethylene glycol (GLYCOLAX) packet 17 g 17 g, Oral, DAILY PRN, Starting on Mariajose 04/11/24 at 0143, Until Discontinued, Constipation, First line therapy for constipation potassium bicarb-citric acid (EFFER-K) effervescent tablet 40 mEq(Linked Group 4) 40 mEq, Oral, PRN, Starting on 04/14/24 at 0826, Until Mariajose 04/18/24 at 0825, Per Potassium Replacement Protocol, Administer as alternative if patient unable to tolerate oral tablet. K Lab Replacement Action 3.1 to 3.5 40 mEq ORAL x 1 Under 3.1 Refer to IV replacement protocol Recheck K level in AM. Protocol not for use in patients with CrCl less than 30 mL/min. Do not chew or crush. Dissolve flavored tablets completely in 3 to 4 ounces of cold water; unflavored tablets may be dissolved in 3 to 4 ounces of cold juice. Patient to sip slowly over a 5 to 10 minute period. May further dilute if GI adverse effects occur. potassium chloride (KLOR-CON M) extended release tablet 40 mEq(Linked Group 4) 40 mEq, Oral, PRN, Starting on 04/14/24 at 0826, Until Mariajose 04/18/24 at 0825, Per Potassium Replacement Protocol, May give alternative linked oral order (ordered as effervescent, packet, or liquid solution) if patient unable to tolerate tablet. K Lab Replacement Action 3.1 to 3.5 40 mEq ORAL x 1 Under 3.1 Refer to IV replacement protocol Recheck K level in AM. Protocol not for use in patients with CrCl less than 30 mL/min. Do not crush, chew, or suck on tablet. Tablet may also be broken in half and each half swallowed separately. potassium chloride 10 mEq/100 mL IVPB (Peripheral Line)(Linked Group 4) 10 mEq, IntraVENous, PRN, Starting on 04/14/24 at 0826, Until Mariajose 04/18/24 at 0825, at 100 mL/hr, Per Potassium Replacement Protocol, K Lab Replacement Action 2.7 to 3.0 10 mEq IVPB x 6 doses (60 mEq Total) Under 2.7 CALL PROVIDER and administer 10 mEq IVPB x 6 doses (60 mEq Total) Infuse at 10 mEq/hr. Repeat Potassium lab 1 hour after final administration. Protocol not for use in patients with CrCl less than 30 mL/min. promethazine (PHENERGAN) 12.5mg in sodium chloride 0.9% 50 mL IVPB SOLN 12.5 mg 12.5 mg, IntraVENous, at 100 mL/hr, Administer over 30 Minutes, EVERY 6 HOURS PRN, Nausea, Starting on Mon04/11/24 at 0954, 2nd line, Administer via antecubital vein or higher. sodium chloride flush 0.9 % injection 10 mL 10 mL, IntraVENous, PRN, Starting on Mon04/11/24 at 0143, Until Discontinued, Line Care, After every IV line use Linked Groups Order Group 1: HYDROmorphone (DILAUDID) injection 0.25 mg (CANCELED)Jump to med 0.25 mg, IntraVENous, EVERY 3 HOURS PRN, Starting on Mon04/12/24 at 0656, Until Mon04/16/24 at 0640, Pain Moderate (4-6), If oral and IV narcotics ordered, use oral first and only use IV if oral is ineffective or cannot take oral. Do Not give oral and IV within 1 hour of each other unless specifically ordered. Or HYDROmorphone (DILAUDID) injection 0.5 mg (CANCELED)Jump to med 0.5 mg, IntraVENous, EVERY 3 HOURS PRN, Starting on Mon04/12/24 at 0656, Until Mon04/15/24 at 0708, Pain Severe (7-10), If oral and IV narcotics ordered, use oral first and only use IV if oral is ineffective or cannot take oral. Do Not give oral and IV within 1 hour of each other unless specifically ordered. Group 2: ondansetron (ZOFRAN-ODT) disintegrating tablet 4 mgJump to med 4 mg, Oral, EVERY 8 HOURS PRN, Starting on Mon04/11/24 at 0143, Until Discontinued, Nausea, Vomiting Or ondansetron (ZOFRAN) injection 4 mgJump to med 4 mg, IntraVENous, EVERY 6 HOURS PRN, Starting on Mon04/11/24 at 0143, Until Discontinued, Nausea, Vomiting, Administer if oral route cannot be used. Group 3: oxyCODONE-acetaminophen (PERCOCET) 5-325 MG per tablet 1 tabletJump to med 1 tablet, Oral, EVERY 4 HOURS PRN, Starting on 04/13/24 at 1008, Until Discontinued, Pain Moderate (4-6), Maximum dose of acetaminophen is 4000 mg from all sources in 24 hours. Or oxyCODONE-acetaminophen (PERCOCET) 5-325 MG per tablet 2 tabletJump to med 2 tablet, Oral, EVERY 4 HOURS PRN, Starting on 04/13/24 at 1008, Until Discontinued, Pain Severe (7-10), Maximum dose of acetaminophen is 4000 mg from all sources in 24 hours. Group 4: potassium chloride (KLOR-CON M) extended release tablet 40 mEqJump to med 40 mEq, Oral, PRN, Starting on 04/14/24 at 0826, Until Mariajose 04/18/24 at 0825, Per Potassium Replacement Protocol, May give alternative linked oral order (ordered as effervescent, packet, or liquid solution) if patient unable to tolerate tablet. K Lab Replacement Action 3.1 to 3.5 40 mEq ORAL x 1 Under 3.1 Refer to IV replacement protocol Recheck K level in AM. Protocol not for use in patients with CrCl less than 30 mL/min. Do not crush, chew, or suck on tablet. Tablet may also be broken in half and each half swallowed separately. Or potassium bicarb-citric acid (EFFER-K) effervescent tablet 40 mEqJump to med 40 mEq, Oral, PRN, Starting on 04/14/24 at 0826, Until Mariajose 04/18/24 at 0825, Per Potassium Replacement Protocol, Administer as alternative if patient unable to tolerate oral tablet. K Lab Replacement Action 3.1 to 3.5 40 mEq ORAL x 1 Under 3.1 Refer to IV replacement protocol Recheck K level in AM. Protocol not for use in patients with CrCl less than 30 mL/min. Do not chew or crush. Dissolve flavored tablets completely in 3 to 4 ounces of cold water; unflavored tablets may be dissolved in 3 to 4 ounces of cold juice. Patient to sip slowly over a 5 to 10 minute period. May further dilute if GI adverse effects occur. Or potassium chloride 10 mEq/100 mL IVPB (Peripheral Line)Jump to med 10 mEq, IntraVENous, PRN, Starting on 04/14/24 at 0826, Until Mariajose 04/18/24 at 0825, at 100 mL/hr, Per Potassium Replacement Protocol, K Lab Replacement Action 2.7 to 3.0 10 mEq IVPB x 6 doses (60 mEq Total) Under 2.7 CALL PROVIDER and administer 10 mEq IVPB x 6 doses (60 mEq Total) Infuse at 10 mEq/hr. Repeat Potassium lab 1 hour after final administration. Protocol not for use in patients with CrCl less than 30 mL/min. INFORMATION SOURCE (unrecogn ized section and content) DATE CREATED AUTHOR 07/28/2023 Virgie walker DATE CREATED AUTHOR AUTHOR'S ORGANIZ ATION 01/04/2024 [facility] DATE CREATED AUTHOR AUTHOR'S ORGANIZ ATION 01/13/2024 [facility] DATE CREATED AUTHOR AUTHOR'S ORGANIZ ATION 01/20/2024 [facility] DATE CREATED AUTHOR AUTHOR'S ORGANIZ ATION 01/21/2024 [facility] DATE CREATED AUTHOR AUTHOR'S ORGANIZ ATION 02/14/2024 [facility] DATE CREATED AUTHOR AUTHOR[facility]S ORGANIZ ATION [facility] DATE CREATED AUTHOR AUTHOR'S ORGANIZ ATION 09/18/2024 [facility] DATE CREATED AUTHOR AUTHOR'S ORGANIZ ATION 09/18/2024 [facility] EPIC Ordered Prescriptions (unrec ognized section and content) Prescription Sig Dispensed Refills Start Date End Da te HYDROcodone homatropine (HYCODAN) 5-1.5 MG/5ML solutionIndications:Vir al upper respiratory tract infection Take 5 mLs by mouth 4 times daily as needed (Cough) for up to 7 days. Max Daily Amount: 20 mLs 140 mL 0 08/15/2023 08/22/2023 azelastine (ASTELIN) 0.1 % nasal spray 2 sprays by Nasal route 2 times daily Use in each nostril as directed 60 mL 0 08/15/2023 predniSONE (DELTASONE) 20 MG tablet Take 2 tablets by mouth daily for 5 days 10 tablet 0 08/15/2023 08/20/2023 albuterol sulfate HFA (VENTOLIN HFA) 108 (90 Base) MCG/ACT inhaler Inhale 2 puffs into the lungs 4 times daily as needed for Wheezing or Shortness of Breath 54 g 1 08/15/2023 Prescription Sig Dispensed Refills Start Date End Da te traMADol (ULTRAM) 50 MG tabletIndications:Postop erative pain Take 1 tablet by mouth every 4 hours as needed for Pain for up to 3 days. Intended supply: 3 days. Take lowest dose possible to manage pain Max Daily Amount: 300 mg 10 tablet 0 11/20/2023 11/23/2023 ketorolac (TORADOL) 10 MG tablet Take 1 tablet by mouth every 6 hours as needed for Pain 20 tablet 0 11/20/2023 11/19/2024 Prescription Sig Dispensed Refills Start Date End Da te oxyCODONE-acetaminophen (PERCOCET) 5-325 MG per tabletIndications:Right ovarian cyst Take 1 tablet by mouth every 6 hours as needed for Pain for up to 3 days. Intended supply: 3 days. Take lowest dose possible to manage pain Max Daily Amount: 4 tablets 10 tablet 04/02/2024 04/05/2024 ondansetron (ZOFRAN-ODT) 4 MG disintegrating tablet Take 1 tablet by mouth 3 times daily as needed for Nausea or Vomiting 10 tablet 04/02/2024 Prescription Sig Dispensed Refills Start Date End Da te docusate sodium (COLACE, DULCOLAX) 100 MG CAPS Take 100 mg by mouth 2 times daily as needed for Constipation 30 capsule 04/16/2024 gabapentin (NEURONTIN) 300 MG capsule Take 1 capsule by mouth 3 times daily for 30 days. 90 capsule 04/16/2024 05/16/2024 venlafaxine (EFFEXOR XR) 75 MG extended release capsule Take 1 capsule by mouth daily (with breakfast) 30 capsule 3 04/17/2024 oxyCODONE-acetaminoph en (PERCOCET) 5-325 MG per tabletIndications:Pne umoperitoneum Take 1 tablet by mouth every 4 hours as needed for Pain for up to 3 days. Max Daily Amount: 6 tablets 18 tablet 04/16/2024 04/19/2024 FOR RECORDS PERTAINING TO PATIENTS WHO ARE OR HAVE BEEN ENROLLED IN A CHEMICAL DEPENDENCY/SUBSTANCEABUSE PROGRAM, SOME INFORMATION MAY BE OMITTED. This clinical summary was aggregated from multiple sources. Caution should be exercised in using it in the provision of clinical care. This summary normalizes information from multiple sources, and as a consequence, information in this document may materially change the coding, format and clinical context of patient data. In addition, data may be omitted in some cases. CLINICAL DECISIONS SHOULD BE BASED ON THE PRIMARY CLINICAL RECORDS. [facility]. provides no warranty or guarantee of the accuracy or completeness of information in this document."
--- NOTE | 2024-09-28 18:18 | ED_ITS ---
HPI HPI - General Adult General Chief complaint: Ear Stated complaint: Ear Pain Time Seen by Provider: 09/28/24 18:13 Source: patient Mode of arrival: walk-in Limitations: no limitations History of Present Illness HPI narrative: 29-year-old female presents for left ear pain. She has had it for 2 days and it is continuous. She has had a small amount of drainage from the left ear. She does not have a sore throat or right ear pain. Related Data Home Medications ?Medication ?Instructions ?Recorded ?Confirmed venlafaxine 75 mg capsule,extended 75 mg PO DAILY 08/28/24 08/28/24 release 24 hr Previous Rx's ?Medication ?Instructions ?Recorded hydrocodone 5 mg-acetaminophen 325 1 tab PO Q8H PRN pain 3 days #8 08/28/24 mg tablet tabs ibuprofen 600 mg tablet 600 mg PO Q8H PRN pain #20 tabs 08/28/24 ondansetron 4 mg disintegrating 4 mg PO Q8H PRN nausea and 08/28/24 tablet vomiting #10 tabs hydrocodone 5 mg-acetaminophen 325 1 tab PO Q8H PRN pain #20 tabs 09/10/24 mg tablet ondansetron 4 mg disintegrating 4 mg PO Q6H PRN nausea and 09/10/24 tablet vomiting #10 tabs polyethylene glycol 3350 17 17 g PO DAILY PRN constipation 09/10/24 gram/dose oral powder (Miralax) #510 grams amoxicillin 500 mg capsule 500 mg PO TID 10 days #30 caps 09/28/24 ciprofloxacin 0.2 %-hydrocortisone 3 drp otic (ear) BID 7 days #10 mL 09/28/24 1 % ear drops,suspension (Cipro HC) Allergies Allergy/AdvReac Type Severity Reaction Status Date / Time chlorpheniramine (From Allergy Severe Swelling Verified 09/28/24 18:09 Triaminic Cold and Cough) of Lip/Tongue/Throat dextromethorphan (From Allergy Severe Swelling Verified 09/28/24 18:09 Triaminic Cold and Cough) of Lip/Tongue/Throat pseudoephedrine (From Allergy Severe Swelling Verified 09/28/24 18:09 Triaminic Cold and Cough) of Lip/Tongue/Throat Opioid HPI Opioid Management Most Recent Opioid Data: Last Pain Scale 8 06/24/24 08:51 06/24/24 Review of Systems ROS Narrative A ten point review of systems is negative except as noted above. PFSH PFSH Surgical History History of appendectomy ?Z90.49 - Acquired absence of other specified parts of digestive tract (ICD- 10) History of removal of ovarian cyst ?Z98.890 - Other specified postprocedural states (ICD-10) ?Z87.42 - Personal history of other diseases of the female genital tract (ICD-10) History of hysterectomy ?Z90.710 - Acquired absence of both cervix and uterus (ICD-10) Social History Little interest or pleasure in doing things: not at all Feeling down, depressed, or hopeless: not at all Exam Narrative Exam Narrative: Nurses note and vital signs reviewed and patient is not hypoxic. General: The patient appears well and in no apparent distress. Patient is resting comfortably on cart. Skin: Warm, dry, no pallor noted. There is no rash noted. Head: Normocephalic, atraumatic Eye: Normal conjunctiva, no drainage Ears, Nose, Mouth, and Throat: oral mucosa is moist. Nares patent. Right TM and external canal are normal in appearance. The left external canal is mildly swollen. No drainage noted. The external canal is mildly erythematous and the TM is erythematous with a distorted light reflex. Cardiovascular: Regular Rate and Rhythm Respiratory: Patient is in no distress, no accessory muscle use Back: non-tender GI: Nontender Musculoskeletal: The patient has no evidence of calf tenderness, no pitting edema, symmetrical pulses noted bilaterally Neurological: A&O, normal speech Psychiatric: Cooperative Constitutional Vital Signs, click to edit/add: Last Vital Signs Temp 98.3 F 09/28/24 18:09 Pulse 93 H 09/28/24 18:09 Resp 16 09/28/24 18:09 BP 141/84 09/28/24 18:09 Pulse Ox 100 09/28/24 18:09 O2 Del Method Room Air 09/28/24 18:09 Course Vital Signs Vital signs: Vital Signs Temperature 98.3 F 09/28/24 18:09 Pulse Rate 93 H 09/28/24 18:09 Respiratory Rate 16 09/28/24 18:09 Blood Pressure 141/84 09/28/24 18:09 Pulse Oximetry 100 09/28/24 18:09 Oxygen Delivery Method Room Air 09/28/24 18:09 Temperature 98.3 F 09/28/24 18:09 Pulse Rate 93 H 09/28/24 18:09 Respiratory Rate 16 09/28/24 18:09 Blood Pressure 141/84 09/28/24 18:09 Pulse Oximetry 100 09/28/24 18:09 Oxygen Delivery Method Room Air 09/28/24 18:09 Medical Decision Making MDM Narrative Medical decision making narrative: My clinical impression is that she has otitis media and otitis externa and she is prescribed amoxicillin and Ciprodex eardrops. Treatment diagnosis and follow-up were discussed with the patient. Differential Diagnosis Differential Diagnosis: Otitis media, otitis externa Discharge Plan Discharge Chief Complaint: Ear Clinical Impression: Left otitis media, Left otitis externa Patient Disposition: Home, Self-Care Time of Disposition Decision: 18:16 Condition: Good Mode of Transportation: Private Vehicle Prescriptions / Home Meds: New amoxicillin 500 mg capsule 500 mg PO TID 10 Days Qty: 30 0RF Cipro HC 0.2-1 % drops,suspension 3 drp otic (ear) BID 7 Days Qty: 10 0RF No Action venlafaxine 75 mg capsule,extended release 24hr 75 mg PO DAILY hydrocodone-acetaminophen 5-325 mg tablet 1 tab PO Q8H PRN (Reason: pain) 3 Days Qty: 8 0RF ibuprofen 600 mg tablet 600 mg PO Q8H PRN (Reason: pain) Qty: 20 0RF ondansetron 4 mg tablet,disintegrating 4 mg PO Q8H PRN (Reason: nausea and vomiting) Qty: 10 0RF ondansetron 4 mg tablet,disintegrating 4 mg PO Q6H PRN (Reason: nausea and vomiting) Qty: 10 0RF hydrocodone-acetaminophen 5-325 mg tablet 1 tab PO Q8H PRN (Reason: pain) Qty: 20 0RF polyethylene glycol 3350 [Miralax] 17 gram/dose powder 17 g PO DAILY PRN (Reason: constipation) Qty: 510 0RF Print Language: South Korean Instructions: Swimmer's Ear (ED), How to Use Ear Drops (ED), Ear Infection (ED) Referrals: Physician,Non-Staff, MD [Primary Care Provider] - 1 week
[2024-09-28] MEDS: AMOXICILLIN 500 MG CAPSULE PO (18:25)
== END 2024-09-28 18:28 | disposition home or self-care (01) ==
PROVIDERS: Emergency Provider Emergency Medicine
DX: H66.92 Otitis media, unspecified, left ear (principal); H60.92 Unspecified otitis externa, left ear; H92.02 Otalgia, left ear
CPT/HCPCS: 99283

== ENCOUNTER 2024-11-01 14:08 | Emergency (ER) | payer OTHER, SELFPAY ==
[2024-11-01 14:07] VITALS: BP 108/86; PULSE 93; TEMP 36.9; O2SAT 97; BMI 54.3
--- NOTE | 2024-11-01 16:17 | ED.GENADUL1 ---
HPI HPI - General Adult General Chief complaint: Anxiety Stated complaint: ANXIETY Time Seen by Provider: 11/01/24 14:29 Source: patient Mode of arrival: ambulance History of Present Illness HPI narrative: Patient is a 29-year-old female who is presenting by EMS staff for panic attack, hyperventilation, and patient was given 2 mg of Versed prior to arrival. Patient is having significant events at home that are leading to major depression, panic attacks, anxiety. Patient says that her left her approximately 1 month ago. Patient has 3 kids with him that she is currently raising, there is 2 other kids that are in relation to her or her who left. Patient currently is not working. Patient is raising the kids. She cannot work because she is raising kids. Patient states that she drinks alcohol rarely, does smoke a pack of cigarettes a day and marijuana, no other illicit drugs. Patient has told Marry AGUILLON and myself she is not suicidal homicidal. However, patient was tearful through the entire HPI and physical exam. EMS stated that when they arrived, patient was panting and having a rapid heartbeat but had significant carpal spasm along with perioral numbness and tingling. Patient was therefore given the Versed secondary to significant carpopedal spasm. It did help with the spasm and patient did relax somewhat. Patient has not taken any medication today. She is not suicidal or homicidal. Patient currently has her mom at her house helping watch her kids. Patient's brother has come at bedside. Patient denies any type of sexual physical or verbal abuse. Patient does not have a specific event today that occurred that triggered this panic attack episodes. All systems are negative except as noted/marked. All systems reviewed and otherwise negative. Nurses note and vital signs reviewed and patient is not hypoxic. General: The patient appears mild to moderate distress secondary to being tearful, admitting depression. Patient is resting uncomfortably on cart. Patient is not toxic, lethargic, or listless. Patient is very tearful. Skin: Warm, dry, no pallor noted. There is no rash noted. No petechiae, purpura. Facial acne, no secondary signs of infection. No signs of cutting, lacerations, abrasions, or self-harm Head: Normocephalic, atraumatic Eye: Normal conjunctiva, no drainage, EOMI. PERRL Ears, Nose, Mouth, and Throat: oral mucosa is moist. Nares patent. Mouth without vesicles. Cardiovascular: Regular Rate and Rhythm, no murmur, gallop, rub Respiratory: Patient is in no distress, no accessory muscle use, lungs are clear to auscultation, no wheezing, rales or rhonchi Back: non-tender, no CVA tenderness bilaterally to percussion. No CT LS midline pain GI: no tenderness to palpation, no masses appreciated. No rebound, guarding, or rigidity noted. No distention Musculoskeletal: Patient has full range of motion of all of the extremities, no motor, sensory, or focal neurological deficits. Patient no longer has carpopedal spasm after Versed was given by EMS. Neurological: A&O x4, normal speech Psychiatric: Cooperative; not suicidal homicidal, positive helpless, not worthless. Patient does not want to because she is raising her kids and loves her kids very much. Related Data Home Medications ?Medication ?Instructions ?Recorded ?Confirmed venlafaxine 75 mg capsule,extended 75 mg PO DAILY 08/28/24 11/01/24 release 24 hr Previous Rx's ?Medication ?Instructions ?Recorded hydroxyzine HCl 50 mg tablet 50 mg PO TID PRN itching #10 tabs 11/01/24 Allergies Allergy/AdvReac Type Severity Reaction Status Date / Time chlorpheniramine (From Allergy Severe Swelling Verified 11/01/24 14:06 Triaminic Cold and Cough) of Lip/Tongue/Throat dextromethorphan (From Allergy Severe Swelling Verified 11/01/24 14:06 Triaminic Cold and Cough) of Lip/Tongue/Throat pseudoephedrine (From Allergy Severe Swelling Verified 11/01/24 14:06 Triaminic Cold and Cough) of Lip/Tongue/Throat Opioid HPI Opioid Management Most Recent Opioid Data: Last Pain Scale 8 06/24/24, 08:51 PFSH PFS Surgical History History of appendectomy ?Z90.49 - Acquired absence of other specified parts of digestive tract (ICD-10) History of removal of ovarian cyst ?Z98.890 - Other specified postprocedural states (ICD-10) ?Z87.42 - Personal history of other diseases of the female genital tract (ICD-10) History of hysterectomy ?Z90.710 - Acquired absence of both cervix and uterus (ICD-10) Social History Little interest or pleasure in doing things: not at all Feeling down, depressed, or hopeless: more than half the days Exam Constitutional Vital Signs, click to edit/add: Last Vital Signs Temp 98.4 F 11/01/24 14:07 Pulse 93 H 11/01/24 14:07 Resp 16 11/01/24 14:07 BP 108/86 11/01/24 14:07 Pulse Ox 97 11/01/24 14:07 O2 Del Method Room Air 11/01/24 14:07 Course Vital Signs Vital signs: Vital Signs Temperature 98.4 F 11/01/24 14:07 Pulse Rate 93 H 11/01/24 14:07 Respiratory Rate 16 11/01/24 14:07 Blood Pressure 108/86 11/01/24 14:07 Pulse Oximetry 97 11/01/24 14:07 Oxygen Delivery Method Room Air 11/01/24 14:07 Temperature 98.4 F 11/01/24 14:07 Pulse Rate 93 H 11/01/24 14:07 Respiratory Rate 16 11/01/24 14:07 Blood Pressure 108/86 11/01/24 14:07 Pulse Oximetry 97 11/01/24 14:07 Oxygen Delivery Method Room Air 11/01/24 14:07 Medical Decision Making MDM Narrative Medical decision making narrative: Patient seen and examined: In is not suicidal, homicidal, does not need thorough psychiatric evaluation at this time. I am not pink sleeping this patient. Patient states that she does take anxiety and stress medication that was prescribed from [facility]. Patient does have a PCP. Patient is not currently seeing a psychiatrist or psychologist. The thought process is to have patient speak to [facility], and tried to arrange emergency outpatient follow-up for therapy, counseling, medication adjustment and to see psychiatrist. Differential diagnosis includes but is not limited to: Major depression, dehydration, electrolyte abnormality, UTI Reevaluation: 1430 I have spoken to the patient, we agreed on the plan of speaking to [facility] on the phone and potentially discharging patient. No additional medication needed at this time. 1500 [facility] has spoken to the patient on the phone, patient is not answering questions appropriately, and a lot of times she does not answer the question at all. Patient will be seen and evaluated by P in person. 1711 we have called P for follow-up to see when a bed to come and see and assess the patient, we are still waiting and they stated they will see and talk to the patient in 1 hour. 1810 [facility] is speaking to the patient through video conference currently that is being helped set up by nursing staff. Shared decision making: I discussed with the patient the necessary laboratory findings and radiological findings. Social barriers to healthcare: There are no food insecurities, there is no issue with transportation, there are no insurance barriers. Disposition: I discussed with the patient as she feels safe going home. Patient still is not suicidal homicidal. Patient had safety planning done with [facility] counselor. They feel safe sending patient home. They will follow-up with patient Monday for emergency appointments, phone calls, and help establish care and psychiatry so that [facility] is not prescribing her mental health medications. Critical care time 35 minutes exclusive from separate billable procedures that were performed. The following was considered in the determination of critical care but not limited to the level of medical decision making, intensive cardiac and/or respiratory monitoring, frequent vital sign monitoring, evaluation of laboratory studies, evaluation of radiographic studies, oxygen monitoring, and constant monitoring and speaking to family at bedside Discharge Plan Discharge Chief Complaint: Anxiety Clinical Impression: Major depression, Situational anxiety, Hyperventilation syndrome, Panic attack Patient Disposition: Home, Self-Care Time of Disposition Decision: 18:42 Condition: Fair Prescriptions / Home Meds: New hydroxyzine HCl 50 mg tablet 50 mg PO TID PRN (Reason: itching) Qty: 10 0RF No Action venlafaxine 75 mg capsule,extended release 24hr 75 mg PO DAILY Print Language: Djib[place]ian Instructions: Hyperventilation (ED), Depression (ED), Panic Disorder (ED), Panic Attack (ED) Additional Instructions: We have created a safety plan for you. We have had you speaking to mental health providers from [facility] behavioral counseling. I am prescribing you Vistaril to use as needed to help with anxiety or insomnia. This is not a medication that we will treat you daily, this is a as needed purpose. You need to establish a PCP to help with daily health care. P will follow-up with you and establish therapy, counseling, and help arrange psychiatrist. [facility] [[facility]ician, [facility]al [facility]] - 1 week Physician,Non-Staff, MD [Primary Care Provider] - 1 week
[2024-11-01 18:49] VITALS: BP 115/69; PULSE 66; O2SAT 97
== END 2024-11-01 19:00 | disposition home or self-care (01) ==
PROVIDERS: Emergency Provider Emergency Medicine
DX: F41.8 Other specified anxiety disorders (principal); F32.9 Major depressive disorder, single episode, unspecified; F41.0 Panic disorder [episodic paroxysmal anxiety]; F45.8 Other somatoform disorders; F17.210 Nicotine dependence, cigarettes, uncomplicated; Z63.5 Disruption of family by separation and divorce; Z90.49 Acquired absence of other specified parts of digestive tract; Z90.710 Acquired absence of both cervix and uterus
CPT/HCPCS: 99283

== ENCOUNTER 2024-11-23 19:56 | Emergency (ER) | payer OTHER, SELFPAY ==
[2024-11-23 19:59] VITALS: BP 130/80; PULSE 109; TEMP 36.7; O2SAT 99; BMI 24.4
--- OUTSIDE RECORDS SUMMARY | 2024-11-23 20:06 | XMS_ITS | CCD ---
Author Organization [facility] [place] [facility] Care Team Providers Care Health Professor Name Role Phone Maria EugeniaDenzel munguia Unavailable Maritza, Hernan Unavailable NO FAMILY, PHYSICIAN Primary Care Provider Unava ilable Nataprawi, DO Juany Attending Provider [phone] Visci, DO Jonathan Attending Provider [phone] NO FAMILY, PHYSICIAN Primary Care Provider Unava ilable Nataprawira, DO Juany Attending Provider MD Michael Gurrola Attending Provider MD Michael Gurrola Primary Care Provider [phone] MD Melinda Beltre P Attending Provider NO FAMILY, PHYSICIAN Primary Care Provider Unava ilable Visci, DO Jonathan Attending Provider Visci, DO Jonathan Admit Provider MD Michael Gurrola Attending Provider NO FAMILY, PHYSICIAN Primary Care Provider Unava ilable MD Michael Gurrola Primary Care Provider MD Melinda Beltre P Attending Provider [phone] Natadela DO Juany Attending Provider Visci, DO Jonathan Admit Provider Visci, DO Jonathan Attending Provider Melida Mckenna APRN, CNP Primary Care Pro vider MELIDA HUANG Primary Care Unavailable KISHA RANGEL Attending Unavailable KISHA RANGEL Admitting Unavailable Provider, None Primary Care Unavailable Michael Gurrola Admitting Unavailable Michael Gurrola Attending Unavailable Provider, None Primary Care Unavailable [...] Attending Unavaila ble SantillanJuan miranda Admitting Unavailable Santillan, Juan Attending Unavailable Provider, None Primary Care Unavailable Provider, None Primary Care Unavailable ELA Friend Admitting Unavailable ELA Friend Attending Unavailable NO FAMILY, PHYSICIAN Primary Care Provider Unava ilable HATTIE Quiñones Emergency Provider YAIR DAVENPORT Referring Unavailable DIVINE COLEMAN Referring Unavailable DIVINE COLEMAN Attending Unavailable REINA, MELIDA A Referring Unavailable REINA, MELIDA A Primary Care Unavailable REINA, MELIDA A Referring Unavailable REINA, MELIDA A Primary Care Unavailable Reina 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, Melida A Primary Care Pro vider REINA, MELIDA A Primary Care Unavailable CARISA LINN Attending Unavailable LAKHWINDER WILD Admitting Unavailable REINA, MELIDA A Referring Unavailable REINA, MELIDA A Primary Care Unavailable REINA, MELIDA A Referring Unavailable REINA, MELIDA A Primary Care Unavailable NO PCP, NO PCP Primary Care Unavailable ARI DORMAN Attending Unavailable MARNIE ROSE Referring Unavailable NO PCP, NO PCP Primary Care Unavailable Unallocated , Noms Provider Primary Care Provi lala Michael Gurrola MD Unavailable [phone] PRUDENCE WONG Attending Unavailable REINA, MELIDA A Primary Care Unavailable REINA, MELIDA A Primary Care Unavailable TYRONE BENITO Attending Unavailable SAGE FUNES Attending Unavailable REINA, MELIDA A Primary Care Unavailable SHEREEN GIRALDO Attending Unavailable REINA, MELIDA A Primary Care Unavailable JESS DAIGLE Attending Unavailable ERINA, MELIDA A Primary Care Unavailable REINA, MELIDA A Primary Care Unavailable NICOLETTE WYMAN Admitting Unavailable NICOLETTE WYMAN Attending Unavailable CRISTIANO SINGH Consulting Unavailable NJ BOWSER Consulting Unavailable MARY ELLEN SORIANO Consulting Unavailable RADHA LA, MICKIE F Admitting Unavail able RADHA LA, MICKIE F Attending Unavail able REINA, MELIDA A Primary Care Unavailable RADHA LA, MICKIE F Referring Unavail able RADHA LA, MICKIE F DO Attending Unav ailable REINA, MELIDA A Primary Care Unavailable RADHA LA, MICKIE F Referring Unavail able REINA, MELIDA A Primary Care Unavailable ALEX COWAN Attending Unavailable REINA, MELIDA A Primary Care Unavailable REINA, MELIDA A Primary Care Unavailable REINA, MELIDA A Primary Care Unavailable JESS DAIGLE Attending Unavailable REINA, MELIDA A Primary Care Unavailable TYRONE BENITO Attending Unavailable Reina RESPIRATORY THERAPY TECHNICIAN-MACHINE MOLDER, Melida A Primary Care Provi lala No Pcp, No Pcp Primary Care Provider Unavailabl e NO PCP, NO PCP Primary Care Unavailable SHIRLEY BRICE Attending Unavailable MICHAEL GURROLA Attending Unavailable PRINTYMICHAEL Attending Unavailable PRINTYMICHAEL Attending Unavailable PRINTYMICHAEL Attending Unavailable PRINTMICHAEL Mendez Attending Unavailable PRINTMICHAEL Mendez Attending Unavailable NO FAMILY, PHYSICIAN Primary Care Provider Unava ilable Duane Simons DO Emergency Provider [phone] Kit Gutierrez MD Admit Provider Kit Gutierrez MD Attending Provider Ameya Salguero DO Emergency Provider Dashawn Moreno MD Admit Provider [phone] Dashawn Moreno MD Attending Provider Dashawn Moreno Admitting Unavailable Dashawn Moreno Attending Unavailable NO FAMILY, PHYSICIAN Primary Care Unavailable Kit Gutierrez Admitting Unavailab Kit Bolivar Attending Unavailab marcia NO FAMILY, PHYSICIAN Primary Care Unavailable Nikhil Quiñones Attending Unavailable Nikhil Quiñones Admitting Unavailable NO FAMILY, PHYSICIAN Primary Care Unavailable Allergies Allergy Classification Reported Allergen(s) Allergy Type Date of Onset Reaction(s) Facility (20 sources) Chlorpheniramine Drug Allergy 06-21-19 Anaphylaxis, Other (See Comments), Other [facility] (20 sources) Dextromethorphan Drug Allergy 06-21-19 Other (See Comments), Other [facility] (20 sources) Pseudoephedrine Drug Allergy 06-21-19 Other (See Comments), Other [facility] (20 sources) Acetaminophen / Chlorpheniramine / Dextromethorphan Drug Allergy 11-19-19 Angioedema, Swelling, Anaphylaxis [facility] (1 source) Chlorpheniramine; Translations: [Triaminic Allergy] Drug Allergy [facility] (1 source) chlorpheniramine/dextr omethorphan/PSE; Translations: [chlorpheniramine/dext romethorphan/PSE] Propensity to adverse reactions to drug (disorder) [facility] Repository (6 sources) Chlorpheniramine / Phenylpropanolamine Drug Allergy 01-08-20 Anaphylaxis [facility] (1 source) OTHER; Translations: [OTHER] Propensity to adverse reactions (disorder) 01-13-20 [facility] Repository (3 sources) [id number] MINOPHEN; Translations: [LICOVGNTHLYMW-IR-KUUG AMINOPHEN] Propensity to adverse reactions to drug (disorder) 11-19-19 [facility] Repository NEGATED: Highlighted row has been ruled out! (7 sources) Other Propensity to adverse reactions 01-13-20 Other (See Comments) [facility] Medications Current Medications Medication Drug Class(es) Dates Sig (Normalized) Sig (Original) acetaminophen 325 mg / oxyCODONE hydrochloride 5 mg oral tablet (4 sources) Opioid Agonist Start: 04-16-2024 End: 04-19-2024 oxyCODONE-acetaminophe n (PERCOCET) 5-325 MG per tablet Indications: Pneumoperitoneum [...] 1 tablet, Oral, ONCE, 1 dose, On 04/10/24 at 1830, Maximum dose of acetaminophen is [...] 4 tablets 10 tablet 04/02/2024 04/05/2024 Active [id number] 200 actuat albuterol 0.09 mg/actuat metered dose inhaler (1 source) beta2-Adrenergic Agonist Start: 08-15-2023 take 2 puff(s) by inhalation four times daily as needed for wheezing albuterol sulfate HFA (VENTOLIN HFA) 108 (90 Base) MCG/ACT inhaler Inhale 2 puffs into the lungs 4 times daily as needed for Wheezing or Shortness of Breath 54 g 1 08/15/2023 Active ARIPiprazole 10 mg oral tablet (1 source) Atypical Antipsychotic Start: 11-16-2024 take 1 tablet by mouth once daily at bedtime Aripiprazole 10 mg Tablet Active 10 MG PO Daily at bedtime November 16, 2024 12:00am azelastine hydrochloride 0.137 mg/actuat metered dose nasal spray (1 source) Histamine-1 Receptor Antagonist Start: 08-15-2023 take 2 spray(s) nasal route twice daily azelastine (ASTELIN) 0.1 % nasal spray 2 sprays by Nasal route 2 times daily Use in each nostril as directed 60 mL 0 08/15/2023 Active busPIRone hydrochloride 10 mg oral tablet (4 sources) Start: 11-16-2024 take 1 tablet by mouth twice daily Buspirone 10 mg tablet Active 10 MG PO Twice daily November 16, 2024 12:00am Start: 11-10-2024 End: 11-16-2024 take 1 tablet by mouth twice daily Buspirone 5 mg Tablet Discontinued 5 MG PO Twice daily November 10, 2024 12:00am November 16, 2024 12:51pm calcium chloride 0.0014 meq/ml / potassium chloride [...] 14 days 28 tablet 0 07/12/2023 Active gabapentin 300 mg oral capsule (3 sources) [...] mLs 140 mL 0 08/15/2023 08/22/2023 Active naloxone 0.4 mg in 10 mL sodium chloride syringe (1 source) Start: 11-20-2023 IntraVENous, PRN, Opioid Reversal, Starting on 11/20/23 at 1611 PRN if respiratory rate is less than 6/min and patient is difficult to arouse then notify physician STAT. Mix 9 mL of sodium chloride 0.9% with 0.4 mg (1 mL) of naloxone (NARCAN) in 10 mL syringe. (Note: dilution is 0.04 mg/mL) &nbsp ;Give 0.08 mg (2 mL of special dilution), slow IV push, repeat up to 0.4 mg (10 mL) or until patient is responsive to physical stimulation and respiratory rate is equal to or greater than 6 breaths/min.&nbsp ; Continue to observe, if no response within 3 minutes of administration of 0.4 mg (10 mL) total, repeat dose (0.4 mg as administered previously).&nbsp ;Concentration 0.04 mg/mL PACU only 24 hr nicotine 0.875 mg/hr transdermal system (1 source) Cholinergic Nicotinic Agonist Start: 11-16-2024 apply 1 dose transdermal route every twenty-four hours Nicotine 21 mg/24 hr Patch 24 Hour Active 21 MG TRANSDERML Daily November 16, 2024 12:00am nystatin [id number] unt/ml topical cream (6 sources) Polyene Antifungal Start: 01-05-2022 nystatin (MYCOSTATIN) cream Indications: Thrush Apply 1 application topically in the morning and 1 application before bedtime. 30 g 01/05/2022 Active ondansetron 4 mg disintegrating oral tablet (20 sources) Serotonin-3 Receptor Antagonist Start: 11-10-2024 take 1 tablet by mouth every six hours as needed for nausea Ondansetron 4 mg Tablet,Disintegra ting Active 4 MG PO Every 6 hours as needed for Nausea November 10, 2024 12:00am Start: 04-10-2024 End: 04-11-2024 4 mg, IntraVENous, ONCE PRN, 1 dose, Starting on Mariajose 04/11/24 at 0045, Until Mariajose 04/11/24 at 0110, Nausea, Secondary antiemetic therapy., PACU only Start: 04-09-2024 End: 04-09-2024 4 mg, IntraVENous, ONCE, 1 d ose, On 04/09/24 at 1200 Start: 04-02-2024 End: 04-02-2024 4 mg, IntraVENous, ONCE, 1 d ose, On 04/02/24 at 1015 Start: 03-17-2024 End: 04-09-2024 take [...] tablet 0 07/10/2023 08/15/2023 Discontinued (LIST CLEANUP) ondansetron (ZOFRAN-ODT) disintegrating tablet 4 mg (1 [...] every morning 0 Active polyethylene glycol 3350 15912 mg powder for oral solution (1 source) Osmotic Laxative Start: no122/iron/folic acid ( MULTI ORAL) (6 sources) [...] mg 10 tablet 0 11/20/2023 11/23/2023 Active traZODone hydrochloride 100 mg oral tablet (4 sources) Serotonin Reuptake Inhibitor Start: 11-16-2024 take 1 tablet by mouth once daily at bedtime as needed Trazodone 100 mg tablet Active 100 MG PO Daily at bedtime as needed for insomnia November 16, 2024 12:00am Start: 11-10-2024 End: 11-16-2024 take 1 tablet by mouth once daily at bedtime as needed Trazodone 50 mg Tablet Discontinued 50 MG PO Daily at bedtime as needed for Insomnia November 10, 2024 12:00November 16, 2024 12:51pm 24 hr venlafaxine 150 mg extended release oral capsule (20 sources) Serotonin and Norepinephrine Reuptake Inhibitor Start: 11-16-2024 take 1 capsule by mouth once daily in the morning Venlafaxine 150 mg Capsule,Extended Release 24hr Active 150 MG PO Every morning November 16, 2024 12:00am Start: 11-10-2024 End: 11-16-2024 take 1 capsule by mouth once daily in the morning Venlafaxine 37.5 mg Capsule,Extended Release 24hr Discontinued 112.5 MG PO Every morning November 10, 2024 12:00am November 16, 2024 12:51pm Start: 07-22-2024 take 1 capsule by [facility] every twenty-four hours Venlafaxine 75 mg capsule,extended release 24hr Active MG PO July 22, 2024 12:00am Start: 07-22-2024 End: 11-10-2024 take 1 capsule by mouth once daily in the morning Venlafaxine 75 mg capsule,extended release 24hr Discontinued 75 MG PO Every morning July 22, 2024 1:00am November 10, 2024 7:31am Start: 04-17-2024 take 1 capsule by mo [facility] once daily at breakfast venlafaxine (EFFEXOR XR) 75 MG extended release capsule Take 1 capsule by mouth daily (with breakfast) 30 capsule 3 04/17/2024 Active Start: 04-14-2024 take 75 mg by mouth once daily at breakfast 75 mg, Oral, DAILY WITH BREAKFAST, First dose on 04/14/24 at 0815, Until Discontinued, Do not crush or break. take 1 capsule by mo [facility] every twenty-four hours at mealtime venlafaxine XR (Effexor XR) 75 MG 24 hr capsule Take 75 mg by mouth in the morning. Take with meals. Active Completed/Discontinued Medications Medication Drug Class(es) Dates Sig (Normalized) Sig (Original) acetaminophen 500 mg oral tablet (20 sources) Start: 02-25-2023 End: 11-07-2024 take 2 tablets by mouth every six hours as needed for pain Acetaminophen 500 mg Tablet Discontinued 1000 MG PO Q6H as needed for Pain, Moderate February 25, 2023 12:00am November 07, 2024 12:12am Start: 02-25-2023 take 1000 mg by mout [...] Release) 500 mg Tablet Discontinued TABLET November 03, 2022 12:00am January 26, 2023 10:37pm Start: 11-30-2020 End: 07-10-2024 take 2 tablets by mouth every eight hours acetaminophen (TYLENOL EXTRA STRENGTH) 500 mg tablet Take 2 tablets (1,000 mg total) by mouth every 8 (eight) hours. 30 tablet 01/18/2024 Active acetaminophen 325 mg / HYDROcodone bitartrate 5 mg oral tablet (9 sources) Opioid Agonist Start: 01-08-2024 End: 07-22-2024 take 1 tablet by mouth every six hours as needed for pain Hydrocodone-Acetaminophen 5-325 mg tablet Discontinued 1 TAB PO Q6H as needed for pain 10 January 08, 2024 July 22, 2024 1:21pm Start: 01-08-2024 End: 07-10-2024 HYDROcodone-acetaminophen (N orco) [...] on 04/14/24 at 0610, Until Discontinued, Anxiety amoxicillin 875 [...] 20 MG PO Daily June 21, 2022 1:00am November 03, 2022 10:38am dexamethasone phosphate 10 mg/ml injectable solution (1 [...] unless specifically approved by provider. PACU only ferrous sulfate 325 mg oral tablet (8 sources) Start: 02-26-2023 End: 11-07-2024 take 1 tablet by mouth once daily Ferrous Sulfate 325 mg (65 mg iron) tablet Discontinued 325 MG PO Daily February 26, 2023 12:00am November 07, 2024 12:12am fluconazole 100 mg oral tablet (10 sources) Azole Antifungal Start: 01-12-2024 End: 07-22-2024 Fluconazole (Diflucan) 100 mg tablet Discontinued 150 MG PO Once January 12, 2024 12:00am July 22, 2024 1:21pm End: 02-15-2024 take 1 tablet by mouth [...] hour of each other unless specifically ordered. hydrOXYzine pamoate 50 mg oral capsule (9 sources) Antihistamine Start: 11-10-2024 End: 11-14-2024 take 1 capsule by mouth every six hours as needed for anxiety Hydroxyzine Pamoate 50 mg Capsule Discontinued 50 MG PO Q6H as needed for Anxiety November 10, 2024 12:00am November 14, 2024 10:12pm Start: 11-01-2024 take 1 tablet by kristel th three times daily Hydroxyzine Hcl 50 mg tablet Active 50 MG PO Three times daily November 07, 2024 12:00am ibuprofen 600 mg oral tablet (20 sources) Nonsteroidal Anti-inflammatory Drug Start: 02-26-2023 End: 11-07-2024 take 4 tablets by mouth every twenty-four hours for pain Ibuprofen 600 mg tablet Discontinued 600 MG PO Every 6 hours as needed for pain February 26, 2023 12:00am November 07, 2024 12:12am do not exceed 4 doses in a 24 hour period Start: 12-08-2021 End: 11-03-2022 take 1 tablet by mouth every six hours as needed for pain Ibuprofen 600 mg tablet Discontinued 600 MG PO Q6H as needed for pain December 08, 2021 12:00am November 03, 2022 10:37am Start: 11-30-2020 take 1 tablet by kristel th every eight hours ibuprofen (MOTRIN) 800 mg tablet Take 1 tablet (800 mg total) by mouth every 8 (eight) hours. 30 tablet 01/17/2024 Active take 1 tablet by kristel th every six hours as needed for pain ibuprofen (ADVIL;MOTRIN) 800 MG tablet Take 1 tablet by mouth every 6 hours as needed for Pain Active iopamidol (ISOVUE-370) 76 % injection 75 mL (5 sources) Start: 04-10-2024 End: 04-10-2024 take 1 dose intravenously once 75 mL, IntraVENous, IMG ONCE PRN, 1 dose, Starting on Mon04/10/24 at 1921, Until Mon04/10/24 at 1921, Other Start: 04-02-2024 End: 04-02-2024 take 1 dose intravenously once 75 mL, IntraVENous, IMG ONCE PRN, 1 dose, Starting on Tu04/02/24 at 1222, Until Mon04/02/24 at 1225, Other [...] Starting on Mariajose 04/11/24 at 0943, Until Mon04/16/24 at 0640, Allowed for higher pain score [...] 1.25 mg LORazepam 0.5 mg oral tablet (16 sources) Benzodiazepine Start: 06-21-2022 End: 11-03-2022 take 1 tablet by mouth three times daily as needed for anxiety Lorazepam 0.5 mg tablet Discontinued 0.5 MG PO Three times daily as needed for Anxiety June 21, 2022 1:00am November 03, 2022 10:38am 2 ml metoclopramide 5 mg/ml prefilled syringe [...] PACU only metroNIDAZOLE 0.0075 mg/mg vaginal gel (19 sources) Nitroimidazole Antimicrobial Start: 02-08-2024 End: 04-30-2024 [...] 22 tablet 01/17/2024 01/28/2024 Start: 01-12-2024 End: 11-07-2024 take 1 tablet by mouth twice daily Metronidazole 500 mg tablet Discontinued 500 MG PO Twice daily 30 12January 12, 2024 12:00am November 07, 2024 12:12am End: 02-15-2024 take 1 tablet by mouth [...] Starting on Mariajose 04/11/24 at 0145, Until Mon04/12/24 at 0137, Pain Mild (1-3), Pain Moderate [...] On Mon04/02/24 at 1230 Start: 02-03-2024 End: 08-17-2024 take 1 dose by mouth every hour 4 mg, IntraVENous, ONCE, 1 dose, On 02/03/24 at 2130, If oral and IV narcotics ordered, use oral first and only use IV if oral is ineffective or cannot take oral. Do Not give oral and IV within 1 hour of each other unless specifically ordered. NIFEdipine 30 mg osmotic 24 hr extended release oral tablet (16 sources) Dihydropyridine Calcium Channel Andrew Start: 11-14-2021 End: 12-08-2021 take 1 tablet by mouth once daily Nifedipine (Procardia Xl) 30 mg tablet extended release 24 hr Discontinued 30 MG PO Daily November 14, 2021 12:00am December 08, 2021 11:33am omeprazole 20 mg delayed release oral capsule [...] PO Twice daily 60 June 22, 2022 1:00am November 03, 2022 10:38am Start: 06-21-2022 End: 06-22-2022 take 1 capsule by mouth once daily Omeprazole 40 mg capsule,delayed release(DR/EC) Discontinued 40 MG PO Daily June 21, 2022 1:00am June 22, 2022 9:18am piperacillin-tazobactam (ZOS YN) 3,375 mg in sodium chloride 0.9 % 50 mL IVPB (Sopl2Klt) (2 sources) Start: 04-11-2024 End: 04-12-2024 3,375 [...] (KLOR-CON M) extended release tablet 40 mEq predniSONE 20 mg oral tablet (5 sources) Start: 07-22-2024 End: 11-07-2024 take 2 tablets by mouth once daily Prednisone 20 mg tablet Discontinued 40 MG PO Daily 6 July 22, 2024 1:00am November 07, 2024 12:12am Start: 08-15-2023 End: 08-20-2023 take 2 tablets by mouth once daily predniSONE (DELTASONE) 20 MG tablet Take 2 tablets by mouth daily for 5 days 10 tablet 0 08/15/2023 08/20/2023 Active Ivlshhil-Rpj-Jc-Fa () 1 mg Tablet (16 sources) Start: 11-03-2022 End: 01-26-2023 take 1 tablet by mouth once daily Hhaypwil-Wxm-Po-Fa () 1 mg Tablet Discontinued 1 TAB PO Daily November 02, 2022 11:00pm January 26, 2023 9:37pm Start: 11-03-2022 End: 01-26-2023 take 1 tablet by mouth once daily Gniqnwis-Zaq-Dx-Fa () 1 mg Tablet Discontinued 1 TAB PO Daily November 03, 2022 12:00am January 26, 2023 10:37pm Start: 11-03-2022 take 1 tablet by kristel th once daily Wcxpwuec-Sqs-Ul-Fa () 1 mg Tablet Active 1 TAB [...] only promethazine hydrochloride 25 mg oral tablet (16 sources) Phenothiazine Start: 11-24-2018 End: 10-16-2020 take 1 tablet by mouth every eight hours as needed for nausea and vomiting Promethazine 25 mg tablet Discontinued 25 MG PO Q8H as needed for nausea and vomiting November 24, 2018 12:00am October 16, 2020 10:45am promethazine (PHENERGAN) 12.5mg in sodium chloride 0.9% [...] 5-40 mL terconazole 8 mg/ml vaginal cream (20 sources) Azole Antifungal Start: 02-19-2023 End: 02-22-2023 Terconazole 0.8 % Cream Discontinued 1 APPLICATOR VAGINAL Daily at bedtime February 19, 2023 12:00am February 22, 2023 3:05pm Problems Active Problems Problem Classification Problem Date Documented Da te Episodic/Chronic Anxiety disorders (2 sources) Anxiety; Translations: [Anxiety disorder, unspecified] Onset: 4 04-14-2024 Chronic Attention-deficit, conduct, and disruptive behavior disorders (5 sources) Attention deficit hyperactivity disorder; Translations: [Attention-deficit hyperactivity [...] with regular cycle] Onset: 4 11-20-2023 Chronic Mood disorders (12 sources) Severe recurrent major depression without psychotic features; Translations: [Major depressive disorder, recurrent severe without psychotic features] Onset: 5 11-06-2024 Chronic Nausea and vomiting (18 sources) Nausea with vomiting, unspecified; Translations: [Nausea and vomiting] Onset: 4 Episodic Comment on above: Problem List clean-u [...] 11-20-2023 Episodic Other and delivery including normal (10 sources) care status; Translations: [Encounter for routine follow-up] 02-27-2023 Episodic Comment on above: Problem List clean-u p per request of Phys. EHR Cmte Other upper respiratory infections (20 sources) Upper respiratory infection; Translations: [Acute upper respiratory infection, unspecified] Onset: 4 08-21-2019 Episodic Comment on above: Problem List clean-u p per request of Phys. EHR Cmte Polyhydramnios and other problems of amniotic cavity (20 sources) Srini rupture of membranes onset of [...] unspecified, without complications] Chronic Residual codes; unclassified (16 sources) Gestation period, 34 weeks; Translations: [34 weeks gestation of ] 11-26-2020 Episodic Comment on above: Problem List clean-u p per request of Phys. EHR Cmte Residual codes; unclassified (16 sources) Tobacco use and exposure - finding; [...] of marijuana use] Onset: 0 07-19-2023 Chronic Suicide and intentional self-inflicted injury (10 sources) Suicidal thoughts; Translations: [Suicidal ideations] Onset: 5 11-07-2024 Episodic Unclassified (1 source) Post-op Problem Onset: 4 Unclassified (1 source) EMS/// 26 yo F Onset: 4 Unclassified (1 source) Adenomyosis of the uterus; Translations: [Adenomyosis of the uterus] Onset: 4 Viral infection (1 source) COVID-19; Translations: [COVID-19] Onset: 4 Past or Other Problems Problem Classification Problem Date Documented Da te Episodic/Chronic Abdominal pain (20 sources) Unspecified abdominal pain; Translations: [Pain in pelvis] Onset: 11-20-2023 Episodic Inflammatory diseases of female pelvic organs (9 [...] cyst, right side] Onset: 02-07-2024 02-04-2024 Episodic Unclassified (11 sources) Spontaneous rupture of membranes; Translations: [Spontaneous rupture of amniotic membranes] 11-26-2020 Results Test Name Value Interpretation Reference Range Facility ECG 12 lead ECGon 11-15-2024 ECG 12 lead ECG [place] [address] Electrocardiograph Report Signed Patient: Barbra Claros MR#: [id number] : 1995 Acct:[id number] Age/Sex: 29 / F ADM Date: 11/14/24 Loc: Room: [address] [place] [address] Type: ADM IN Attending Dr: Dashawn Moreno MD Ordering Provider: Dashawn Moreno MD Date of Service: 11/15/24 ECG/ECG 12 lead ECG: antipsychotic therapy Copies to: Test Reason : Blood Pressure : */* mmHG Vent. Rate : 68 BPM Atrial Rate : 68 BPM P-R Int : 126 ms QRS Dur : 98 ms QT Int : 402 ms P-R-T Axes : 29 50 56 degrees QTcB Int : 427 ms Normal sinus rhythm Normal ECG Confirmed by Rhoda Herring ([id number]) on 11/15/2024 4:36:41 PM Referred By: Electronically Signed By: Rhoda Herring Transcribed By: MUS Signed By Rhoda Herring MD 5 [id number] Normal [facility] X-ray reportOrdered By: Jay Sunshine on 11-15-2024 Study report [facility] [address] [address] XRay Report Signed Patient: Barbra Claros MR#: [id number] : 1995 Acct:[id number] Age/Sex: 29 / F ADM Date: 5 Loc: 1S Room: [address] [place] [address] Type: ADM IN Attending Dr: Dashawn Moreno MD Copies to: Dashawn Moreno MD~ Ordering Provider: Dashawn Moreno MD Date of Service: 11/15/24 XR/XR hand RT 2V: injury to hand, swelling/pain 2 views right hand plain film COMPARISON: None HISTORY: Right hand injury. The first metacarpal pain ACUTE FINDINGS: None DEGENERATIVE CHANGE: Unremarkable SOFT TISSUE FINDINGS: Unremarkable JOINT EFFUSION: None POSTOP CHANGES: None BONY MINERALIZATION: Adequate XR/XR hand RT 2V IMPRESSION: No acute displaced fracture Impression dictated by: Julio Sunshine M.D. 11/15/2024 9:53 AM Dictation Location: [place] [address] Transcribed By: [facility] 11/15/24 0953 Dictated By: Julio Sunshine DO 11/15/24 0953 Signed By: 11/15/24 0953 [facility] XR hand RT 2Von 11-15-2024 XR hand RT 2V [facility] Main [address] [address] XRay Report Signed Patient: Barbra Claros MR#: [id number] : 1995 Acct:[id number] Age/Sex: 29 / F ADM Date: 11/14/24 Loc: 1S Room: [address] [place] [address] Type: ADM IN Attending Dr: Dashawn Moreno MD Copies to: Dashawn Moreno MD Ordering Provider: Dashawn Moreno MD Date of Service: 11/15/24 XR/XR hand RT 2V: injury to hand, swelling/pain 2 views right hand plain film COMPARISON: None HISTORY: Right hand injury. The first metacarpal pain ACUTE FINDINGS: None DEGENERATIVE CHANGE: Unremarkable SOFT TISSUE FINDINGS: Unremarkable JOINT EFFUSION: None POSTOP CHANGES: None BONY MINERALIZATION: Adequate XR/XR hand RT 2V IMPRESSION: No acute displaced fracture Impression dictated by: Julio Sunshine M.D. 11/15/2024 9:53 AM Dictation Location: [place] [address] Transcribed By: [facility] 11/15/24 0953 Dictated By: Julio Sunshine DO 11/15/24 0953 Signed By: 11/15/24 0953 Normal [facility] Alanine aminotransferase [En zymatic activity/volume] in Serum or PlasmaOrdered By: Ameya Salguero on 11-14-2024 ALT [Catalytic activity/Vol] Alanine aminotransferase [Enzymatic activity/volume] in Serum or Plasma 7-52 [facility] Albumin [Mass/volume] in Ser um or Plasma by Bromocresol green (BCG) dye binding methoOrdered By: Ameya Salguero on 11-14-2024 Albumin BCG dye [Mass/Vol] Albumin [Mass/volume] in Serum or Plasma by Bromocresol green (BCG) dye binding metho 3.5-5.7 [facility] Alkaline phosphatase [Enzyma tic activity/volume] in Serum or PlasmaOrdered By: Ameya Salguero on 11-14-2024 ALP [Catalytic activity/Vol] Alkaline phosphatase [Enzymatic activity/volume] in Serum or Plasma 34-104 [facility] Amphetamine Screen Ql (U)Ord ered By: Ameya Salguero on 11-14-2024 Amphetamines Ql (U) Amphetamines screen Negativ e [facility] Appearance of UrineOrdered B y: Ameya Salguero on 11-14-2024 Appearance (U) Urine appearance Clear [facility] Aspartate aminotransferase [ Enzymatic activity/volume] in Serum or PlasmaOrdered By: Ameya Salguero on 11-14-2024 AST [Catalytic activity/Vol] Aspartate aminotransferase [Enzymatic activity/volume] in Serum or Plasma 13-39 [facility] Bacteria [Presence] in Urine by AutomatedOrdered By: Ameya Salguero on 11-14-2024 Bacteria Auto Ql (U) Bacteria [Presence] in Urine by Automated None Seen [facility] Barbiturates [Presence] in U rine by Screen methodOrdered By: Ameya Salguero on 11-14-2024 Barbiturates Screen Ql (U) Barbiturates [Presence] in Urine by Screen method Negative [facility] Basophils Auto (Bld) [#/Vol] Ordered By: Ameya Salguero on 11-14-2024 Basophils (Bld) [#/Vol] Automated basophil count 0.0-0.2 [facility] Basophils/100 WBC Auto (Bld) Ordered By: Ameya Salguero on 11-14-2024 Basophils/100 WBC (Bld) Automated basophil % . [facility] Benzodiazepines Screen Ql (U )Ordered By: Ameya Salguero on 11-14-2024 Benzodiazepines Ql (U) Benzodiazepines [Presence] in Urine by Screen method Negative [facility] Benzoylecgonine [Presence] i n Urine by Screen methodOrdered By: Ameya Salguero on 11-14-2024 Benzoylecgonine Screen Ql (U) Benzoylecgonine [Presence] in Urine by Screen method Negative [facility] Bilirubin Test strip Ql (U)O rdered By: Ameya Salguero on 11-14-2024 Bilirubin Ql (U) Bilirubin.total [Presence] in Urine by Test strip Negative [facility] Bilirubin.total [Mass/volume ] in Serum or PlasmaOrdered By: Ameya Salguero on 11-14-2024 Bilirubin [Mass/Vol] Bilirubin.total [Mass/volume] in Serum or Plasma Low 0.3-1.0 [facility] Calcium [Mass/volume] in Ser um or PlasmaOrdered By: Ameya Salguero on 11-14-2024 Calcium [Mass/Vol] Calcium [Mass/volume ] in Serum or Plasma 8.6-10.3 [facility] Cannabinoids [Presence] in U rine by Screen methodOrdered By: Ameya Salguero on 11-14-2024 Cannabinoids Screen Ql (U) Cannabinoids [Presence] in Urine by Screen method High Negative [facility] Comment on above: These are unconfirme d results and should not be used for legal purposes. Drug Cut-Off Concentration: AMPH 1000 ng/mL FIONA 200 ng/mL KIMMY 200 ng/mL COCM 300 ng/mL OP 300 ng/mL PCP 25 ng/mL THC 20 ng/mL Carbon dioxide, total [Moles /volume] in Serum or PlasmaOrdered By: Ameya Salguero on 11-14-2024 CO2 [Moles/Vol] Carbon dioxide, tota l [Moles/volume] in Serum or Plasma 21.0-31.0 [facility] Chloride [Moles/volume] in S karla or PlasmaOrdered By: Ameya Salguero on 11-14-2024 Chloride [Moles/Vol] Chloride [Moles/vol ume] in Serum or Plasma 98-107 [facility] Cholesterol [Mass/volume] in Serum or PlasmaOrdered By: Ameya Salguero on 11-14-2024 Cholesterol [Mass/Vol] Cholesterol [Mass/volume] in Serum or Plasma 140-200 [facility] Comment on above: Chol less than 200 m g/dl low riskChol 201-239 mg/dl borderline riskChol 240 mg/dl and greater high risk Cholesterol in HDL [Mass/vol ume] in Serum or PlasmaOrdered By: Ameya Salguero on 11-14-2024 Cholesterol in HDL [Mass/Vol] Serum or plasma high density lipoprotein (HDL) cholesterol measurement 23-92 [facility] Comment on above: HDL CHOL ATP-III CLA SSIFICATION Cardiovascular RiskHDL > or equal to 60 mg/dL LOWHDL < 40 mg/dL HIGH Cholesterol in LDL Calc [Mas s/Vol]Ordered By: Ameya Salguero on 11-14-2024 Cholesterol in LDL [Mass/Vol] Cholesterol in LDL [Mass/volume] in Serum or Plasma by calculation 0-100 [facility] Comment on above: LDL ATP III CLASSIFI CATIONLDL less than 100 mg/dL OptimalLDL 100-129 mg/dL Near or above optimalLDL 130-159 mg/dL Borderline highLDL 160-189 mg/dL HighLDL greater than 189 mg/dL Very high Cholesterol in VLDL Calc [Ma ss/Vol]Ordered By: Ameya Salguero on 11-14-2024 Cholesterol in VLDL [Mass/Vol] Cholesterol in VLDL [Mass/volume] in Serum or Plasma by calculation [facility] Color Auto (U)Ordered By: Ela Salguero on 11-14-2024 Color (U) Color of Urine by Auto Yellow Fi [facility] Complete Blood Count Auto Di ffon 11-14-2024 Basophils (Bld) [#/Vol] 0.0 10*3/uL Normal 0.0-0.2 [facility] Comment on above: Result Comment: PERF ORMED BY: [place] [address] PATHOLOGIST INFORMATION SECURITY DIRECTOR AMBER HENNING M.D. Performed By: #### T SH3 wRFLX, [id number], ETOH, CBC, CMP, LIPID #### [address] Basophils/100 WBC (Bld) 0.4 % Normal . [facility] Comment on above: Performed By: #### T SH3 wRFLX, [id number], ETOH, CBC, CMP, LIPID #### [address] Eosinophils (Bld) [#/Vol] 0.0 10*3/uL Normal 0.0-0.45 [facility] Comment on above: Performed By: #### T SH3 wRFLX, [id number], ETOH, CBC, CMP, LIPID #### [address] Eosinophils/100 WBC (Bld) 0.2 % Normal . [facility] Comment on above: Performed By: #### T SH3 wRFLX, [id number], ETOH, CBC, CMP, LIPID #### [address] Erythrocyte distribution width (RBC) [Ratio] 14.5 % Normal 11.9-15.3 [facility] Comment on above: Performed By: #### T SH3 wRFLX, [id number], ETOH, CBC, CMP, LIPID #### [address] Hematocrit (Bld) [Volume fraction] 35.9 % Normal 34.0-46.4 [facility] Comment on above: Performed By: #### T SH3 wRFLX, [id number], ETOH, CBC, CMP, LIPID #### [address] Hemoglobin (Bld) [Mass/Vol] 12.2 g/dL Normal 11.8-15.4 [facility] Comment on above: Performed By: #### T SH3 wRFLX, [id number], ETOH, CBC, CMP, LIPID #### [address] Lymphocytes (Bld) [#/Vol] 2.8 10*3/uL Normal 1.00-4.8 [facility] Comment on above: Performed By: #### T SH3 wRFLX, [id number], ETOH, CBC, CMP, LIPID #### [address] Lymphocytes/100 WBC (Bld) 39.7 % Normal . [facility] Comment on above: Performed By: #### T SH3 wRFLX, [id number], ETOH, CBC, CMP, LIPID #### [address] MCH (RBC) [Entitic mass] 29.2 pg Normal 24.7-34.3 [facility] Comment on above: Performed By: #### T SH3 wRFLX, [id number], ETOH, CBC, CMP, LIPID #### [address] MCV (RBC) [Entitic vol] 86.2 fL Normal 80-100 [facility] Comment on above: Performed By: #### T SH3 wRFLX, [id number], ETOH, CBC, CMP, LIPID #### [address] Mean Corpuscular HGB Conc 33.9 g/dL Normal 32.0-35.0 [facility] Comment on above: Performed By: #### T SH3 wRFLX, [id number], ETOH, CBC, CMP, LIPID #### [address] Monocytes (Bld) [#/Vol] 0.5 10*3/uL Normal 0.0-0.8 [facility] Comment on above: Performed By: #### T SH3 wRFLX, [id number], ETOH, CBC, CMP, LIPID #### [address] Monocytes/100 WBC (Bld) 18.51 % Normal 0.00-20.00 [facility] Comment on above: Performed By: #### T SH3 wRFLX, [id number], ETOH, CBC, CMP, LIPID #### [address] Monocytes/100 WBC (Bld) 7.3 % Normal . [facility] Comment on above: Performed By: #### T SH3 wRFLX, [id number], ETOH, CBC, CMP, LIPID #### [address] Neutrophils (Bld) [#/Vol] 3.7 10*3/uL Normal 1.8-7.7 [facility] Comment on above: Performed By: #### T SH3 wRFLX, [id number], ETOH, CBC, CMP, LIPID #### [address] Neutrophils/100 WBC (Bld) 52.4 % Normal . [facility] Comment on above: Performed By: #### T SH3 wRFLX, [id number], ETOH, CBC, CMP, LIPID #### [address] NRBC% 0.1 /100{WBC} Normal 0-0.5 [facility] Comment on above: Performed By: #### T SH3 wRFLX, [id number], ETOH, CBC, CMP, LIPID #### [address] Platelet mean volume (Bld) [Entitic vol] 7.7 fL Normal 6.3-10.7 [facility] Comment on above: Performed By: #### T SH3 wRFLX, [id number], ETOH, CBC, CMP, LIPID #### [facility] [address] Platelets (Bld) [#/Vol] 231 10*3/uL Normal 150-450 [facility] Comment on above: Performed By: #### T SH3 wRFLX, [id number], ETOH, CBC, CMP, LIPID #### [facility] [address] RBC (Bld) [#/Vol] 4.17 10*6/uL Normal 3.60-5.00 [facility] Comment on above: Performed By: #### T SH3 wRFLX, [id number], ETOH, CBC, CMP, LIPID #### [address] WBC (Bld) [#/Vol] 7.1 10*3/uL Normal 3.8-11.6 [facility] Comment on above: Performed By: #### T SH3 wRFLX, [id number], ETOH, CBC, CMP, LIPID #### [address] Comprehensive Metabolic Pane blaine 11-14-2024 Albumin [Mass/Vol] 4.3 g/dL Normal 3.5-5.7 [facility] Comment on above: Performed By: #### T SH3 wRFLX, [id number], ETOH, CBC, CMP, LIPID ####[address] Albumin/Globulin [Mass ratio] 1.5 {ratio} Normal [facility] Comment on above: Performed By: #### T SH3 wRFLX, [id number], ETOH, CBC, CMP, LIPID ####[facility] [place] [address] ALP [Catalytic activity/Vol] 54 U/L Normal 34-104 [facility] Comment on above: Performed By: #### T SH3 wRFLX, [id number], ETOH, CBC, CMP, LIPID ####[address] ALT [Catalytic activity/Vol] 36 U/L Normal 7-52 [facility] Comment on above: Performed By: #### T SH3 wRFLX, [id number], ETOH, CBC, CMP, LIPID ####[address] Anion gap [Moles/Vol] 9.9 mmol/L Normal 6.0-15.0 [facility] Comment on above: Performed By: #### T SH3 wRFLX, [id number], ETOH, CBC, CMP, LIPID ####[address] AST [Catalytic activity/Vol] 36 U/L Normal 13-39 [facility] Comment on above: Performed By: #### T SH3 wRFLX, [id number], ETOH, CBC, CMP, LIPID ####[address] Bilirubin [Mass/Vol] 0.2 mg/dL Low 0.3-1.0 [facility] Comment on above: Performed By: #### T SH3 wRFLX, [id number], ETOH, CBC, CMP, LIPID ####[address] Calcium [Mass/Vol] 8.9 mg/dL Normal 8.6-10.3 [facility] Comment on above: Performed By: #### T SH3 wRFLX, [id number], ETOH, CBC, CMP, LIPID ####[address] Chloride [Moles/Vol] 105 mmol/L Normal 98-107 [facility] Comment on above: Performed By: #### T SH3 wRFLX, [id number], ETOH, CBC, CMP, LIPID ####[address] CO2 [Moles/Vol] 27.8 mmol/L Normal 21.0-31.0 [facility] Comment on above: Performed By: #### T SH3 wRFLX, [id number], ETOH, CBC, CMP, LIPID ####[place] [id number] [address] Creatinine [Mass/Vol] 0.54 mg/dL Low 0.60-1.20 [facility] Comment on above: Performed By: #### T SH3 wRFLX, [id number], ETOH, CBC, CMP, LIPID ####[place] [id number] [facility] Creatinine Clr Calc Pharmacy 142.40 Normal [facility] Comment on above: Result Comment: PERF ORMED BY: [facility] [address] [place] [address] PATHOLOGIST INFORMATION SECURITY DIRECTOR AMBER HENNING M.D. Performed By: #### T SH3 wRFLX, [id number], ETOH, CBC, CMP, LIPID ####[address] GFR/1.73 sq M.predicted MDRD (S/P/Bld) [Vol rate/Area] mL/min/{1.73_m2} Normal [facility] Comment on above: Performed By: #### T SH3 wRFLX, [id number], ETOH, CBC, CMP, LIPID ####[address] Globulin (S) [Mass/Vol] 2.8 g/dL Normal [facility] Comment on above: Performed By: #### T SH3 wRFLX, [id number], ETOH, CBC, CMP, LIPID ####[place] [id number] [facility] Glucose [Mass/Vol] 94 mg/dL Normal 70-100 [facility] Comment on above: Result Comment: [place] Glucose Reference Range is dependent on time and content of last meal. Glucose of more than 200 mg/dL in a nonstressed, ambulatory subject supports the diagnosis of Diabetes Mellitus. ADA recommended reference range Performed By: #### T SH3 wRFLX, [id number], ETOH, CBC, CMP, LIPID ####[address] Potassium [Moles/Vol] 3.7 mmol/L Normal 3.5-5.1 [facility] Comment on above: Performed By: #### T SH3 wRFLX, [id number], ETOH, CBC, CMP, LIPID ####[place] [id number] [address] Protein [Mass/Vol] 7.1 g/dL Normal 6.4-8.9 [facility] Comment on above: Performed By: #### T SH3 wRFLX, [id number], ETOH, CBC, CMP, LIPID ####[place] [id number] [address] Sodium [Moles/Vol] 139 mmol/L Normal 136-145 [facility] Comment on above: Performed By: #### T SH3 wRFLX, [id number], ETOH, CBC, CMP, LIPID ####[place] [id number] [address] Urea nitrogen [Mass/Vol] 10 mg/dL Normal 7-25 [facility] Comment on above: Performed By: #### T SH3 wRFLX, [id number], ETOH, CBC, CMP, LIPID ####[place] [id number] [address] Creatinine [Mass/volume] in Serum or PlasmaOrdered By: Ameya Salguero on 11-14-2024 Creatinine [Mass/Vol] Creatinine [Mass/v olume] in Serum or Plasma Low 0.60-1.20 [facility] Dipstick and Microscopicon 0 11-14-2024 Appearance (U) Clear Normal Clear [facility] Comment on above: Order Comment: Name Collection Type:: Clean-Voided Midstream Performed By: #### A DDONUAPLUS, UHCG, URDS #### [facility] [address] [place] [address] [place] Bacteria,Urine None Seen Normal None Seen [facility] Comment on above: Order Comment: Name Collection Type:: Clean-Voided Midstream Performed By: #### A DDONUAPLUS, UHCG, URDS #### [facility] [address] [place] [address] [place] Bilirubin,Urine Negative Normal Negative [facility] Comment on above: Order Comment: Name Collection Type:: Clean-Voided Midstream Performed By: #### A DDONUAPLUS, UHCG, URDS #### [address] Color (U) Yellow Normal Yellow [facility] Comment on above: Order Comment: Name Collection Type:: Clean-Voided Midstream Performed By: #### A DDONUAPLUS, UHCG, URDS #### [address] Glucose Ql (U) Normal Normal Normal [facility] Comment on above: Order Comment: Name Collection Type:: Clean-Voided Midstream Performed By: #### A DDONUAPLUS, UHCG, URDS #### [address] Hyaline Casts,Urine None Normal 0-8 [facility] Comment on above: Order Comment: Name Collection Type:: Clean-Voided Midstream Performed By: #### A DDONUAPLUS, UHCG, URDS #### [address] Ketones Ql (U) Negative Normal Negative [facility] Comment on above: Order Comment: Name Collection Type:: Clean-Voided Midstream Performed By: #### A DDONUAPLUS, UHCG, URDS #### [address] Leukocyte esterase Test strip Ql (U) Negative Normal Negative [facility] Comment on above: Order Comment: Name Collection Type:: Clean-Voided Midstream Performed By: #### A DDONUAPLUS, UHCG, URDS #### [address] Mucus,Urine 1+ Critically abnormal [facility] Comment on above: Order Comment: Name Collection Type:: Clean-Voided Midstream Performed By: #### A DDONUAPLUS, UHCG, URDS #### [place] [address] [place] Nitrite,Urine Negative Normal Negative [facility] Comment on above: Order Comment: Name Collection Type:: Clean-Voided Midstream Performed By: #### A DDONUAPLUS, UHCG, URDS #### [address] Occult Blood,Urine Negative Normal Negative [facility] Comment on above: Order Comment: Name Collection Type:: Clean-Voided Midstream Performed By: #### A DDONUAPLUS, UHCG, URDS #### [address] pH (U) 7.0 [pH] Normal 5.0-9.0 [facility] Comment on above: Order Comment: Name Collection Type:: Clean-Voided Midstream Performed By: #### A DDONUAPLUS, UHCG, URDS #### [address] Protein (U) [Mass/Vol] 20 mg/dL High Negative [facility] Comment on above: Order Comment: Name Collection Type:: Clean-Voided Midstream Performed By: #### A DDONUAPLUS, UHCG, URDS #### [place] [address] [place] RBC,Urine 3-4 Normal 0-4 [facility] Comment on above: Order Comment: Name Collection Type:: Clean-Voided Midstream Performed By: #### A DDONUAPLUS, UHCG, URDS #### [address] Specificy [place],Urine 1.031 High 1.001-1.030 [facility] Comment on above: Order Comment: Name Collection Type:: Clean-Voided Midstream Performed By: #### A DDONUAPLUS, UHCG, URDS #### [place] [address] [place] Squamous Epithelial Cell,Urine 5-9 High 0-2 [facility] Comment on above: Order Comment: Name Collection Type:: Clean-Voided Midstream Performed By: #### A DDONUAPLUS, UHCG, URDS #### [address] Urobilinogen,Urine 2 mg/dL High Normal [facility] Comment on above: Order Comment: Name Collection Type:: Clean-Voided Midstream Performed By: #### A DDONUAPLUS, UHCG, URDS #### [address] WBC,Urine 1-2 Normal 0-4 [facility] Comment on above: Order Comment: Name Collection Type:: Clean-Voided Midstream Performed By: #### A DDONUAPLUS, UHCG, URDS #### [address] Drug Screen,Urineon 11-15-19 25 Amphetamine Screen,Urine Negative Normal Negative [facility] Comment on above: Performed By: #### A DDONUAPLUS, UHCG, URDS #### [address] Barbiturate Screen,Urine Negative Normal Negative [facility] Comment on above: Performed By: #### A DDONUAPLUS, UHCG, URDS #### [address] Benzodiazepines Screen,Urine Negative Normal Negative [facility] Comment on above: Performed By: #### A DDONUAPLUS, UHCG, URDS #### [address] Cannabinoid Screen,Urine Positive High Negative [facility] Comment on above: Result Comment: Thes e are unconfirmed results and should not be used for legal purposes. Drug Cut-Off Concentration: AMPH 1000 ng/mL FIONA 200 ng/mL KIMMY 200 ng/mL COCM 300 ng/mL OP 300 ng/mL PCP 25 ng/mL THC 20 ng/mL PERFORMED BY: [place] [address] PATHOLOGIST INFORMATION SECURITY DIRECTOR AMBER HENNING M.D. Performed By: #### A DDONUAPLUS, UHCG, URDS #### [facility] [address] Cocaine Screen,Urine Negative Normal Negative [facility] Comment on above: Performed By: #### A DDONUAPLUS, UHCG, URDS #### [facility] [address] Opiate Screen,Urine Negative Normal Negative [facility] Comment on above: Performed By: #### A DDONUAPLUS, UHCG, URDS #### [facility] [address] Phencyclidine Screen,Urine Negative Normal Negative [facility] Comment on above: Performed By: #### A DDONUAPLUS, UHCG, URDS #### [facility] [address] Eosinophils Auto (Bld) [#/Vo l]Ordered By: Ameya Salguero on 11-14-2024 Eosinophils (Bld) [#/Vol] Automated eosinophil count 0.0-0.45 [facility] Eosinophils/100 WBC Auto (Bl d)Ordered By: Ameya Salguero on 11-14-2024 Eosinophils/100 WBC (Bld) Automated eosinophil % . [facility] Epithelial cells.squamous [# /area] in Urine sediment by Automated countOrdered By: Ameya Salguero on 11-14-2024 Epithelial cells.squamous Auto (Urine sed) [#/Area] Epithelial cells.squamous [#/area] in Urine sediment by Automated count High 0-2 [facility] Erythrocyte distribution wid th Auto (RBC) [Ratio]Ordered By: Ameya Salguero on 11-14-2024 Erythrocyte distribution width (RBC) [Ratio] Erythrocyte distribution width [Ratio] by Automated count 11.9-15.3 [facility] Erythrocytes [#/area] in Uri ne sediment by Automated countOrdered By: Ameya Salguero on 11-14-2024 RBC Auto (Urine sed) [#/Area] Erythrocytes [#/area] in Urine sediment by Automated count 0-4 [facility] Ethanol [Mass/volume] in Ser um or PlasmaOrdered By: Ameya Salguero on 11-14-2024 Ethanol [Mass/Vol] Ethanol [Mass/volume ] in Serum or Plasma [facility] Comment on above: Test not performed Ethyl Alcohol Profileon 10-18 Ethanol [Mass/Vol] mg/dL Normal [facility] Comment on above: Performed By: #### T SH3 wRFLX, [id number], ETOH, CBC, CMP, LIPID ####[facility] [id number] [place] [address] [facility] Percent Ethanol Not performed Normal [facility] Comment on above: Result Comment: PERF ORMED BY: [facility] [address] [place] [id number] PATHOLOGIST INFORMATION SECURITY DIRECTOR AMBER HENNING M.D. Performed By: #### T SH3 wRFLX, [id number], ETOH, CBC, CMP, LIPID ####[facility] [place] [address] [facility] Globulin Calc (S) [Mass/Vol] Ordered By: Ameya Salguero on 11-14-2024 Globulin (S) [Mass/Vol] Serum globulin measurement by calculation (mass/volume) [facility] Glucose [Mass/volume] in Ser um or PlasmaOrdered By: Ameya Salguero on 11-14-2024 Glucose [Mass/Vol] Glucose [Mass/volume ] in Serum or Plasma 70-100 [facility] Comment on above: ADA recommended refe rence rangeRandom Glucose Reference Range is dependent on time and content of last meal. Glucose of more than 200 mg/dL in a nonstressed, ambulatory subject supports the diagnosis of Diabetes Mellitus. Glucose [Mass/volume] in Uri ne by Test stripOrdered By: Ameya Salguero on 11-14-2024 Glucose Test strip (U) [Mass/Vol] Glucose [Mass/volume] in Urine by Test strip Normal [facility] HCG ( test) IA.rapi d Ql (U)Ordered By: Ameya Salguero on 11-14-2024 HCG ( test) Ql (U) Urine human chorionic gonadotropin (hCG) detection by immunoassay [facility] HCG,Urineon 11-14-2024 Beta HCG ( test) Ql (U) Negative Normal [facility] Comment on above: Order Comment: Name Collection Type:: Clean-Voided Midstream Result Comment: PERF ORMED BY: [place] [address] PATHOLOGIST INFORMATION SECURITY DIRECTOR AMBER HENNING M.D. Performed By: #### A GIL, CG, URDS #### [address] Hematocrit Auto (Bld) [Volum e fraction]Ordered By: Ameya Salguero on 11-14-2024 Hematocrit (Bld) [Volume fraction] Hematocrit [Volume Fraction] of Blood by Automated count 34.0-46.4 [facility] Hemoglobin Test strip Ql (U) Ordered By: Ameya Salguero on 11-14-2024 Hemoglobin Ql (U) Hemoglobin [Presence ] in Urine by Test strip Negative [facility] Hemoglobin [Mass/volume] in BloodOrdered By: Ameya Salguero on 11-14-2024 Hemoglobin (Bld) [Mass/Vol] Hemoglobin [Mass/volume] in Blood 11.8-15.4 [facility] Hyaline casts [#/area] in Ur ine sediment by Automated countOrdered By: Ameya Salguero on 11-14-2024 Hyaline casts Auto (Urine sed) [#/Area] Hyaline casts [#/area] in Urine sediment by Automated count 0-8 [facility] Ketones Test strip Ql (U)Ord ered By: Ameya Salguero on 11-14-2024 Ketones Ql (U) Ketones [Presence] i n Urine by Test strip Negative [facility] Leukocyte esterase [Presence ] in Urine by Test stripOrdered By: Ameya Salguero on 11-14-2024 Leukocyte esterase Test strip Ql (U) Leukocyte esterase [Presence] in Urine by Test strip Negative [facility] Leukocytes [#/area] in Urine sediment by Automated countOrdered By: Ameya Salguero on 11-14-2024 WBC Auto (Urine sed) [#/Area] Leukocytes [#/area] in Urine sediment by Automated count 0-4 [facility] Leukocytes [#/volume] correc arminda for nucleated erythrocytes in Blood by Automated counOrdered By: Ameya Salguero on 11-14-2024 WBC corrected for nucl RBC Auto (Bld) [#/Vol] Leukocytes [#/volume] corrected for nucleated erythrocytes in Blood by Automated coun 3.8-11.6 [facility] Lipid Panelon 11-14-2024 Cholesterol [Mass/Vol] 167 mg/dL Normal 140-200 [facility] Comment on above: Result Comment: Chol less than 200 mg/dl low risk Chol 201-239 mg/dl borderline risk Chol 240 mg/dl and greater high risk Performed By: #### T SH3 wRFLX, [id number], ETOH, CBC, CMP, LIPID ####[facility] Cholesterol in HDL [Mass/Vol] 58 mg/dL Normal 23-92 [facility] Comment on above: Result Comment: HDL CHOL ATP-III CLASSIFICATION Cardiovascular Risk HDL > or equal to 60 mg/dL LOW HDL < 40 mg/dL HIGH Performed By: #### T SH3 wRFLX, [id number], ETOH, CBC, CMP, LIPID ####[place] [id number] [address] Cholesterol.total/Cho lesterol in HDL [Mass ratio] 2.9 {ratio} Normal <5.0 [facility] Comment on above: Performed By: #### T SH3 wRFLX, [id number], ETOH, CBC, CMP, LIPID ####[place] [id number] [place] [id number] [facility] LDL Cholesterol,Calculate d 98 mg/dL Normal 0-100 [facility] Comment on above: Result Comment: LDL ATP III CLASSIFICATION LDL less than 100 mg/dL Optimal LDL 100-129 mg/dL Near or above optimal LDL 130-159 mg/dL Borderline high LDL 160-189 mg/dL High LDL greater than 189 mg/dL Very high Performed By: #### T SH3 wRFLX, [id number], ETOH, CBC, CMP, LIPID ####[facility] [place] [id number] [facility] Triglyceride w/Reflex 56 mg/dL Normal 0-149 [facility] Comment on above: Result Comment: TRIG ATP III CLASSIFICATION TRIG less than 150 mg/dL Normal TRIG 150-199 mg/dL Borderline high TRIG 200-500 mg/dL High TRIG greater than 500 mg/dL Very high Standard traceable to the Center for Disease Conrtrol and Prevention (CDC) test method. Performed By: #### T SH3 wRFLX, [id number], ETOH, CBC, CMP, LIPID ####[facility] [id number] [place] [id number] [facility] VLDL CHOLESTEROL 11 mg/dL Normal [facility] Comment on above: Performed By: #### T SH3 wRFLX, [id number], ETOH, CBC, CMP, LIPID ####[facility] [id number] [place] [address] [facility] Lymphocytes Auto (Bld) [#/Vo l]Ordered By: Ameya Salguero on 11-14-2024 Lymphocytes (Bld) [#/Vol] Lymphocytes [#/volume] in Blood by Automated count 1.00-4.8 [facility] Lymphocytes/100 WBC Auto (Bl d)Ordered By: Ameya Salguero on 11-14-2024 Lymphocytes/100 WBC (Bld) Lymphocytes/100 leukocytes in Blood by Automated count . [facility] MCH Auto (RBC) [Entitic mass ]Ordered By: Ameya Salguero on 11-14-2024 MCH (RBC) [Entitic mass] MCH [Entitic mass] by Automated count 24.7-34.3 [facility] MCHC Auto (RBC) [Mass/Vol]Or dered By: Ameya Salguero on 11-14-2024 MCHC (RBC) [Mass/Vol] MCHC [Mass/volume] by Automated count 32.0-35.0 [facility] MCV Auto (RBC) [Entitic vol] Ordered By: Ameya Salguero on 11-14-2024 MCV (RBC) [Entitic vol] MCV [Entitic volume] by Automated count 80-100 [facility] Monocyte distribution width [Entitic volume] in Blood by AutomatedOrdered By: Ameya Salguero on 11-14-2024 Monocyte distribution width Auto (Bld) [Entitic vol] Monocyte distribution width [Entitic volume] in Blood by Automated 0.00-20.00 [facility] Monocytes Auto (Bld) [#/Vol] Ordered By: Ameya Salguero on 11-14-2024 Monocytes (Bld) [#/Vol] Automated blood monocyte count 0.0-0.8 [facility] Monocytes/100 WBC Auto (Bld) Ordered By: Ameya Salguero on 11-14-2024 Monocytes/100 WBC (Bld) Automated monocyte % . [facility] Mucus [Presence] in Urine by AutomatedOrdered By: Ameya Salguero on 11-14-2024 Mucus Auto Ql (U) Mucus [Presence] in Urine by Automated Abnormal [facility] Neutrophils Auto (Bld) [#/Vo l]Ordered By: Ameya Salguero on 11-14-2024 Neutrophils (Bld) [#/Vol] Neutrophils [#/volume] in Blood by Automated count 1.8-7.7 [facility] Neutrophils/100 WBC Auto (Bl d)Ordered By: Ameya Salguero on 11-14-2024 Neutrophils/100 WBC (Bld) Automated neutrophil % . [facility] Nitrite Test strip Ql (U)Ord ered By: Ameya Salguero on 11-14-2024 Nitrite Ql (U) Nitrite [Presence] i n Urine by Test strip Negative [facility] No Panel InformationOrdered By: Ameya Salguero on 11-14-2024 Estimated GFR (CKD-EPI) > 60.0 mL/Min [facility] Creatinine Clearance (Chem 142.40 [facility] Nucleated erythrocytes [Pres ence] in Blood by Automated countOrdered By: Ameya Salguero on 11-14-2024 Nucleated RBC Auto Ql (Bld) Nucleated erythrocytes [Presence] in Blood by Automated count 0-0.5 [facility] Opiates [Presence] in Urine by Screen methodOrdered By: Ameya Salguero on 11-14-2024 Opiates Screen Ql (U) Opiates [Presence] in Urine by Screen method Negative [facility] Phencyclidine Screen Ql (U)O rdered By: Ameya Salguero on 11-14-2024 Phencyclidine Ql (U) Phencyclidine [Pres ence] in Urine by Screen method Negative [facility] Platelet mean volume Auto (B ld) [Entitic vol]Ordered By: Ameya Salguero on 11-14-2024 Platelet mean volume (Bld) [Entitic vol] Platelet mean volume [Entitic volume] in Blood by Automated count 6.3-10.7 [facility] Platelets Auto (Bld) [#/Vol] Ordered By: Ameya Salguero on 11-14-2024 Platelets (Bld) [#/Vol] Platelets [#/volume] in Blood by Automated count 150-450 [facility] Potassium [Moles/volume] in Serum or PlasmaOrdered By: Ameya Salguero on 11-14-2024 Potassium [Moles/Vol] Potassium [Moles/v olume] in Serum or Plasma 3.5-5.1 [facility] Protein Test strip (U) [Mass /Vol]Ordered By: Ameya Salguero on 11-14-2024 Protein (U) [Mass/Vol] Protein [Mass/volume] in Urine by Test strip High Negative [facility] Protein [Mass/volume] in Ser um or PlasmaOrdered By: Ameya Salguero on 11-14-2024 Protein [Mass/Vol] Protein [Mass/volume ] in Serum or Plasma 6.4-8.9 [facility] RBC Auto (Bld) [#/Vol]Ordere d By: Ameya Salguero on 11-14-2024 RBC (Bld) [#/Vol] Erythrocytes [#/volu me] in Blood by Automated count 3.60-5.00 [facility] Serum or plasma albumin/glob ulin mass ratioOrdered By: Ameya Salguero on 11-14-2024 Albumin/Globulin [Mass ratio] Serum or plasma albumin/globulin mass ratio [facility] Serum or plasma anion gap de terminationOrdered By: Ameya Salguero on 11-14-2024 Anion gap [Moles/Vol] Serum or plasma an ion gap determination 6.0-15.0 [facility] Serum or plasma total choles terol/high density lipoprotein (HDL) cholesterol mass ratOrdered By: Ameya Salguero on 11-14-2024 Cholesterol.total/Cho lesterol in HDL [Mass ratio] Serum or plasma total cholesterol/high density lipoprotein (HDL) cholesterol mass rat <5.0 [facility] Sodium [Moles/volume] in Ser um or PlasmaOrdered By: Ameya Salguero on 11-14-2024 Sodium [Moles/Vol] Sodium [Moles/volume ] in Serum or Plasma 136-145 [facility] Specific gravity Test strip (U) [Rel density]Ordered By: Ameya Salguero on 11-14-2024 Specific gravity (U) [Rel density] Specific gravity of Urine by Test strip High 1.001-1.030 [facility] Thyroid Stim Hormone w/Rflxo n 11-14-2024 Thyroid Stim Hormone w/Rflx 2.22 u[iU]/mL Normal 0.45-5.33 [facility] Comment on above: Performed By: #### T SH3 wRFLX, [id number], ETOH, CBC, CMP, LIPID ####[facility] [id number] Thyrotropin [Units/volume] i n Serum or PlasmaOrdered By: Ameya Salguero on 11-14-2024 TSH Qn Thyrotropin [Units/volume] in Serum or Plasma 0.45-5.33 [facility] Triglyceride [Mass/volume] i n Serum or PlasmaOrdered By: Ameya Salguero on 11-14-2024 Triglyceride [Mass/Vol] Triglyceride [Mass/volume] in Serum or Plasma 0-149 [facility] Comment on above: TRIG ATP III CLASSIF ICATIONTRIG less than 150 mg/dL NormalTRIG 150-199 mg/dL Borderline highTRIG 200-500 mg/dL High TRIG greater than 500 mg/dL Very highStandard traceable to the Center for Disease Conrtrol and Prevention (CDC) test method. Urea nitrogen [Mass/volume] in Serum or PlasmaOrdered By: Ameya Salguero on 11-14-2024 Urea nitrogen [Mass/Vol] Urea nitrogen [Mass/volume] in Serum or Plasma 7-25 [facility] Urobilinogen Test strip (U) [Mass/Vol]Ordered By: Ameya Salguero on 11-14-2024 Urobilinogen (U) [Mass/Vol] Urobilinogen [Mass/volume] in Urine by Test strip High Normal [facility] Vitamin D 25 Hydroxy Totalon 11-14-2024 Vitamin D 25 Hydroxy Total 8.5 ng/mL Low 30-100 [facility] Comment on above: Result Comment: CEM MIN D STATUS 25([place])VITAMIN D RANGE (ng/mL) Deficient <20 Insufficient 20 to <30 Sufficient 30 to 100 Reference: Roly Trevino, Kassidy SHAH, et al. Evaluation,treatment, and prevention of vitamin D deficiency; an Endocrine Society clinical practice guideline. JCEM. 2010; 96(7):1911-. PERFORMED BY: [address] [address] PATHOLOGIST INFORMATION SECURITY DIRECTOR AMBER HENNING M.D. Performed By: #### T SH3 wRFLX, [id number], ETOH, CBC, CMP, LIPID ####[facility] [id number] [place] [address] [facility] Vitamin D+Metabolites [Mass/ volume] in Serum or PlasmaOrdered By: Ameya Salguero on 11-14-2024 Vitamin D+Metabolites [Mass/Vol] Vitamin D+Metabolites [Mass/volume] in Serum or Plasma Low 30-100 [facility] Comment on above: VITAMIN D STATUS 25( [place])VITAMIN D RANGE (ng/mL) Deficient <20 Insufficient 20 to <30Sufficient 30 to 100Reference: Roly Trevino, Kassidy SHAH, et al. Evaluation,treatment, and prevention of vitamin D deficiency; an Endocrine Society clinical practice guideline. JCEM. 2010; 96(7):1911-30. WBC Auto (Bld) [#/Vol]Ordere d By: Ameya Salguero on 11-14-2024 WBC (Bld) [#/Vol] Leukocytes [#/volume ] in Blood by Automated count 3.8-11.6 [facility] pH Test strip (U)Ordered By: Ameya Salguero on 11-14-2024 pH (U) pH of Urine by Test strip 5.0-9.0 [facility] ECG 12 lead ECGon 11-07-2024 ECG 12 lead ECG [facility] [address] [address] Electrocardiograph Report Signed Patient: Barbra Claros MR#: [id number] : 1995 Acct:[id number] Age/Sex: 29 / F ADM Date: 11/07/24 Loc: Room: 9O6005-7 Type: ADM IN Attending Dr: Kit Gutierrez MD Ordering Provider: Kit Gutierrez MD Date of Service: 11/07/24 ECG/ECG 12 lead ECG: Use of antipsychotics Copies to: Test Reason : Blood Pressure : */* mmHG Vent. Rate : 66 BPM Atrial Rate : 66 BPM P-R Int : 132 ms QRS Dur : 98 ms QT Int : 422 ms P-R-T Axes : 37 62 76 degrees QTcB Int : 442 ms Normal sinus rhythm Normal ECG No previous ECGs available Confirmed by PAUL JUAREZ MD ([id number]) on 11/07/2024 5:39:10 PM Referred By: Electronically Signed By: PAUL JUAREZ MD Transcribed By: MUS Signed By Paul Juarez MD 0 11/07/24 1739 Normal [facility] Alanine aminotransferase [En zymatic activity/volume] in Serum or PlasmaOrdered By: Duane Simons on 11-06-2024 ALT [Catalytic activity/Vol] Alanine aminotransferase [Enzymatic activity/volume] in Serum or Plasma 7-52 [facility] Albumin [Mass/volume] in Ser um or Plasma by Bromocresol green (BCG) dye binding methoOrdered By: Duane Simons on 11-06-2024 Albumin BCG dye [Mass/Vol] Albumin [Mass/volume] in Serum or Plasma by Bromocresol green (BCG) dye binding metho 3.5-5.7 [facility] Alkaline phosphatase [Enzyma tic activity/volume] in Serum or PlasmaOrdered By: Duane Simons on 11-06-2024 ALP [Catalytic activity/Vol] Alkaline phosphatase [Enzymatic activity/volume] in Serum or Plasma 34-104 [facility] Amphetamine Screen Ql (U)Ord ered By: Duane Simons on 11-06-2024 Amphetamines Ql (U) Amphetamines screen Negativ e [facility] Appearance of UrineOrdered B y: Duane Simons on 11-06-2024 Appearance (U) Urine appearance Clear [facility] Aspartate aminotransferase [ Enzymatic activity/volume] in Serum or PlasmaOrdered By: Duane Simons on 11-06-2024 AST [Catalytic activity/Vol] Aspartate aminotransferase [Enzymatic activity/volume] in Serum or Plasma 13-39 [facility] Bacteria [Presence] in Urine by AutomatedOrdered By: Duane Simons on 11-06-2024 Bacteria Auto Ql (U) Bacteria [Presence] in Urine by Automated None Seen [facility] Barbiturates [Presence] in U rine by Screen methodOrdered By: Duane Simons on 11-06-2024 Barbiturates Screen Ql (U) Barbiturates [Presence] in Urine by Screen method Negative [facility] Basophils Auto (Bld) [#/Vol] Ordered By: Duane Simons on 11-06-2024 Basophils (Bld) [#/Vol] Automated basophil count 0.0-0.2 [facility] Basophils/100 WBC Auto (Bld) Ordered By: Duane Simons on 11-06-2024 Basophils/100 WBC (Bld) Automated basophil % . [facility] Benzodiazepines Screen Ql (U )Ordered By: Duane Simons on 11-06-2024 Benzodiazepines Ql (U) Benzodiazepines [Presence] in Urine by Screen method Negative [facility] Benzoylecgonine [Presence] i n Urine by Screen methodOrdered By: Duane Simons on 11-06-2024 Benzoylecgonine Screen Ql (U) Benzoylecgonine [Presence] in Urine by Screen method Negative [facility] Bilirubin Test strip Ql (U)O rdered By: Duane Simons on 11-06-2024 Bilirubin Ql (U) Bilirubin.total [Presence] in Urine by Test strip Negative [facility] Bilirubin.total [Mass/volume ] in Serum or PlasmaOrdered By: Duane Simons on 11-06-2024 Bilirubin [Mass/Vol] Bilirubin.total [Mass/volume] in Serum or Plasma 0.3-1.0 [facility] Calcium [Mass/volume] in Ser um or PlasmaOrdered By: Duane Simons on 11-06-2024 Calcium [Mass/Vol] Calcium [Mass/volume ] in Serum or Plasma 8.6-10.3 [facility] Cannabinoids [Presence] in U rine by Screen methodOrdered By: Duane Simons on 11-06-2024 Cannabinoids Screen Ql (U) Cannabinoids [Presence] in Urine by Screen method High Negative [facility] Comment on above: These are unconfirme d results and should not be used for legal purposes. Drug Cut-Off Concentration: AMPH 1000 ng/mL FIONA 200 ng/mL KIMMY 200 ng/mL COCM 300 ng/mL OP 300 ng/mL PCP 25 ng/mL THC 20 ng/mL Carbon dioxide, total [Moles /volume] in Serum or PlasmaOrdered By: Duane Simons on 11-06-2024 CO2 [Moles/Vol] Carbon dioxide, tota l [Moles/volume] in Serum or Plasma 21.0-31.0 [facility] Chloride [Moles/volume] in S karla or PlasmaOrdered By: Duane Simons on 11-06-2024 Chloride [Moles/Vol] Chloride [Moles/vol ume] in Serum or Plasma 98-107 [facility] Cholesterol [Mass/volume] in Serum or PlasmaOrdered By: Kit Gutierrez on 11-06-2024 Cholesterol [Mass/Vol] Cholesterol [Mass/volume] in Serum or Plasma 140-200 [facility] Comment on above: Chol less than 200 m g/dl low riskChol 201-239 mg/dl borderline riskChol 240 mg/dl and greater high risk Cholesterol in HDL [Mass/vol ume] in Serum or PlasmaOrdered By: Kit Gutierrez on 11-06-2024 Cholesterol in HDL [Mass/Vol] Serum or plasma high density lipoprotein (HDL) cholesterol measurement 23-92 [facility] Comment on above: HDL CHOL ATP-III CLA SSIFICATION Cardiovascular RiskHDL > or equal to 60 mg/dL LOWHDL < 40 mg/dL HIGH Cholesterol in LDL Calc [Mas s/Vol]Ordered By: Kit Gutierrez on 11-06-2024 Cholesterol in LDL [Mass/Vol] Cholesterol in LDL [Mass/volume] in Serum or Plasma by calculation 0-100 [facility] Comment on above: LDL ATP III CLASSIFI CATIONLDL less than 100 mg/dL OptimalLDL 100-129 mg/dL Near or above optimalLDL 130-159 mg/dL Borderline highLDL 160-189 mg/dL HighLDL greater than 189 mg/dL Very high Cholesterol in VLDL Calc [Ma ss/Vol]Ordered By: Kit Gutierrez on 11-06-2024 Cholesterol in VLDL [Mass/Vol] Cholesterol in VLDL [Mass/volume] in Serum or Plasma by calculation [facility] Color Auto (U)Ordered By: Avila Simons on 11-06-2024 Color (U) Color of Urine by Auto Yellow Fi [facility] Complete Blood Count Auto Di ffon 11-06-2024 Basophils (Bld) [#/Vol] 0.0 10*3/uL Normal 0.0-0.2 [facility] Comment on above: Result Comment: PERF ORMED BY: [facility] [address] [place] [address] PATHOLOGIST INFORMATION SECURITY DIRECTOR ZULEIMA ZHANG M.D. Performed By: #### C BC, TSH3 wRFLX, [id number], LIPID, ETOH, CMP ####[address] Basophils/100 WBC (Bld) 0.5 % Normal . [facility] Comment on above: Performed By: #### C BC, TSH3 wRFLX, [id number], LIPID, ETOH, CMP ####[address] Eosinophils (Bld) [#/Vol] 0.0 10*3/uL Normal 0.0-0.45 [facility] Comment on above: Performed By: #### C BC, TSH3 wRFLX, [id number], LIPID, ETOH, CMP ####[address] Eosinophils/100 WBC (Bld) 0.1 % Normal . [facility] Comment on above: Performed By: #### C BC, TSH3 wRFLX, [id number], LIPID, ETOH, CMP ####[address] Erythrocyte distribution width (RBC) [Ratio] 14.8 % Normal 11.9-15.3 [facility] Comment on above: Performed By: #### C BC, TSH3 wRFLX, [id number], LIPID, ETOH, CMP ####[address] Hematocrit (Bld) [Volume fraction] 36.8 % Normal 34.0-46.4 [facility] Comment on above: Performed By: #### C BC, TSH3 wRFLX, [id number], LIPID, ETOH, CMP ####[address] Hemoglobin (Bld) [Mass/Vol] 12.6 g/dL Normal 11.8-15.4 [facility] Comment on above: Performed By: #### C BC, TSH3 wRFLX, [id number], LIPID, ETOH, CMP ####[address] Lymphocytes (Bld) [#/Vol] 2.1 10*3/uL Normal 1.00-4.8 [facility] Comment on above: Performed By: #### C BC, TSH3 wRFLX, [id number], LIPID, ETOH, CMP ####[address] Lymphocytes/100 WBC (Bld) 36.1 % Normal . [facility] Comment on above: Performed By: #### C BC, TSH3 wRFLX, [id number], LIPID, ETOH, CMP ####[address] MCH (RBC) [Entitic mass] 29.4 pg Normal 24.7-34.3 [facility] Comment on above: Performed By: #### C BC, TSH3 wRFLX, [id number], LIPID, ETOH, CMP ####[address] MCV (RBC) [Entitic vol] 86.1 fL Normal 80-100 [facility] Comment on above: Performed By: #### C BC, TSH3 wRFLX, [id number], LIPID, ETOH, CMP ####[address] Mean Corpuscular HGB Conc 34.2 g/dL Normal 32.0-35.0 [facility] Comment on above: Performed By: #### C BC, TSH3 wRFLX, [id number], LIPID, ETOH, CMP ####[address] Monocytes (Bld) [#/Vol] 0.3 10*3/uL Normal 0.0-0.8 [facility] Comment on above: Performed By: #### C BC, TSH3 wRFLX, [id number], LIPID, ETOH, CMP ####[address] Monocytes/100 WBC (Bld) 18.05 % Normal 0.00-20.00 [facility] Comment on above: Performed By: #### C BC, TSH3 wRFLX, [id number], LIPID, ETOH, CMP ####[address] Monocytes/100 WBC (Bld) 4.7 % Normal . [facility] Comment on above: Performed By: #### C BC, TSH3 wRFLX, [id number], LIPID, ETOH, CMP ####[address] Neutrophils (Bld) [#/Vol] 3.5 10*3/uL Normal 1.8-7.7 [facility] Comment on above: Performed By: #### C BC, TSH3 wRFLX, [id number], LIPID, ETOH, CMP ####[address] Neutrophils/100 WBC (Bld) 58.6 % Normal . [facility] Comment on above: Performed By: #### C BC, TSH3 wRFLX, [id number], LIPID, ETOH, CMP ####[address] NRBC% 0.1 /100{WBC} Normal 0-0.5 [facility] Comment on above: Performed By: #### C BC, TSH3 wRFLX, [id number], LIPID, ETOH, CMP ####[place] [id number] [facility] Platelet mean volume (Bld) [Entitic vol] 7.8 fL Normal 6.3-10.7 [facility] Comment on above: Performed By: #### C BC, TSH3 wRFLX, [id number], LIPID, ETOH, CMP ####[place] [id number] [facility] Platelets (Bld) [#/Vol] 264 10*3/uL Normal 150-450 [facility] Comment on above: Performed By: #### C BC, TSH3 wRFLX, [id number], LIPID, ETOH, CMP ####[address] RBC (Bld) [#/Vol] 4.27 10*6/uL Normal 3.60-5.00 [facility] Comment on above: Performed By: #### C BC, TSH3 wRFLX, [id number], LIPID, ETOH, CMP ####[address] WBC (Bld) [#/Vol] 5.9 10*3/uL Normal 3.8-11.6 [facility] Comment on above: Performed By: #### C BC, TSH3 wRFLX, [id number], LIPID, ETOH, CMP ####[place] [id number] [facility] Comprehensive Metabolic Pane blaine 11-06-2024 Albumin [Mass/Vol] 4.5 g/dL Normal 3.5-5.7 [facility] Comment on above: Performed By: #### C BC, TSH3 wRFLX, [id number], LIPID, ETOH, CMP ####[place] [id number] [facility] Albumin/Globulin [Mass ratio] 1.7 {ratio} Normal [facility] Comment on above: Performed By: #### C BC, TSH3 wRFLX, [id number], LIPID, ETOH, CMP ####[place] [id number] [facility] ALP [Catalytic activity/Vol] 52 U/L Normal 34-104 [facility] Comment on above: Performed By: #### C BC, TSH3 wRFLX, [id number], LIPID, ETOH, CMP ####[address] [address] [facility] ALT [Catalytic activity/Vol] 11 U/L Normal 7-52 [facility] Comment on above: Performed By: #### C BC, TSH3 wRFLX, [id number], LIPID, ETOH, CMP ####[place] [id number] [facility] Anion gap [Moles/Vol] 9.6 mmol/L Normal 6.0-15.0 [facility] Comment on above: Performed By: #### C BC, TSH3 wRFLX, [id number], LIPID, ETOH, CMP ####[place] [id number] [facility] AST [Catalytic activity/Vol] 13 U/L Normal 13-39 [facility] Comment on above: Performed By: #### C BC, TSH3 wRFLX, [id number], LIPID, ETOH, CMP ####[place] [id number] [facility] Bilirubin [Mass/Vol] 0.3 mg/dL Normal 0.3-1.0 [facility] Comment on above: Performed By: #### C BC, TSH3 wRFLX, [id number], LIPID, ETOH, CMP ####[place] [id number] [facility] Calcium [Mass/Vol] 9.1 mg/dL Normal 8.6-10.3 [facility] Comment on above: Performed By: #### C BC, TSH3 wRFLX, [id number], LIPID, ETOH, CMP ####[place] [id number] [facility] Chloride [Moles/Vol] 106 mmol/L Normal 98-107 [facility] Comment on above: Performed By: #### C BC, TSH3 wRFLX, [id number], LIPID, ETOH, CMP ####[address] CO2 [Moles/Vol] 27.1 mmol/L Normal 21.0-31.0 The [facility] Comment on above: Performed By: #### C BC, TSH3 wRFLX, [id number], LIPID, ETOH, CMP ####[place] [id number] [facility] Creatinine [Mass/Vol] 0.67 mg/dL Normal 0.60-1.20 [facility] Comment on above: Performed By: #### C BC, TSH3 wRFLX, [id number], LIPID, ETOH, CMP ####[address] Creatinine Clr Calc Pharmacy 112.89 Normal [facility] Comment on above: Result Comment: PERF ORMED BY: [place] [address] PATHOLOGIST INFORMATION SECURITY DIRECTOR ZULEIMA ZHANG M.D. Performed By: #### C BC, TSH3 wRFLX, [id number], LIPID, ETOH, CMP ####[address] GFR/1.73 sq M.predicted MDRD (S/P/Bld) [Vol rate/Area] mL/min/{1.73_m2} Normal [facility] Comment on above: Performed By: #### C BC, TSH3 wRFLX, [id number], LIPID, ETOH, CMP ####[place] [id number] [facility] Globulin (S) [Mass/Vol] 2.7 g/dL Normal [facility] Comment on above: Performed By: #### C BC, TSH3 wRFLX, [id number], LIPID, ETOH, CMP ####[place] [id number] [facility] Glucose [Mass/Vol] 89 mg/dL Normal 70-100 [facility] Comment on above: Result Comment: Adriana medrano Glucose Reference Range is dependent on time and content of last meal. Glucose of more than 200 mg/dL in a nonstressed, ambulatory subject supports the diagnosis of Diabetes Mellitus. ADA recommended reference range Performed By: #### C BC, TSH3 wRFLX, [id number], LIPID, ETOH, CMP ####[place] [id number] [place] [address] [facility] Potassium [Moles/Vol] 3.7 mmol/L Normal 3.5-5.1 [facility] Comment on above: Performed By: #### C BC, TSH3 wRFLX, [id number], LIPID, ETOH, CMP ####[place] [address] [place] [address] [facility] Protein [Mass/Vol] 7.2 g/dL Normal 6.4-8.9 [facility] Comment on above: Performed By: #### C BC, TSH3 wRFLX, [id number], LIPID, ETOH, CMP ####[address] [address] [facility] Sodium [Moles/Vol] 139 mmol/L Normal 136-145 [facility] Comment on above: Performed By: #### C BC, TSH3 wRFLX, [id number], LIPID, ETOH, CMP ####[place] [address] [place] [address] [facility] Urea nitrogen [Mass/Vol] 6 mg/dL Low 7-25 [facility] Comment on above: Performed By: #### C BC, TSH3 wRFLX, [id number], LIPID, ETOH, CMP ####[address] [address] [facility] Creatinine [Mass/volume] in Serum or PlasmaOrdered By: Duane Simons on 11-06-2024 Creatinine [Mass/Vol] Creatinine [Mass/v olume] in Serum or Plasma 0.60-1.20 [facility] Dipstick and Microscopicon 0 11-06-2024 Appearance (U) Clear Normal Clear The [facility] Comment on above: Order Comment: Name Collection Type:: Clean-Voided Midstream Performed By: #### A DDONUAPLUS, UHCG, URDS #### [place] [address] [place] Bacteria,Urine None Seen Normal None Seen [facility] Comment on above: Order Comment: Name Collection Type:: Clean-Voided Midstream Performed By: #### A DDONUAPLUS, UHCG, URDS #### [place] [address] [place] Bilirubin,Urine Negative Normal Negative The [facility] Comment on above: Order Comment: Name Collection Type:: Clean-Voided Midstream Performed By: #### A DDONUAPLUS, UHCG, URDS #### [address] Color (U) Light-Yellow Normal Yellow The [facility] Comment on above: Order Comment: Name Collection Type:: Clean-Voided Midstream Performed By: #### A DDONUAPLUS, UHCG, URDS #### [address] Glucose Ql (U) Normal Normal Normal [facility] Comment on above: Order Comment: Name Collection Type:: Clean-Voided Midstream Performed By: #### A DDONUAPLUS, UHCG, URDS #### [address] Hyaline Casts,Urine None Normal 0-8 [facility] Comment on above: Order Comment: Name Collection Type:: Clean-Voided Midstream Performed By: #### A DDONUAPLUS, UHCG, URDS #### [place] [address] [place] Ketones Ql (U) Negative Normal Negative [facility] Comment on above: Order Comment: Name Collection Type:: Clean-Voided Midstream Performed By: #### A DDONUAPLUS, UHCG, URDS #### [address] Leukocyte esterase Test strip Ql (U) 2+ High Negative [facility] Comment on above: Order Comment: Name Collection Type:: Clean-Voided Midstream Performed By: #### A DDONUAPLUS, UHCG, URDS #### [place] [address] [place] Nitrite,Urine Negative Normal Negative The [facility] Comment on above: Order Comment: Name Collection Type:: Clean-Voided Midstream Performed By: #### A DDONUAPLUS, UHCG, URDS #### [place] [address] [place] Occult Blood,Urine Trace High Negative [facility] Comment on above: Order Comment: Name Collection Type:: Clean-Voided Midstream Performed By: #### A DDONUAPLUS, UHCG, URDS #### [address] pH (U) 5.5 [pH] Normal 5.0-9.0 [facility] Comment on above: Order Comment: Name Collection Type:: Clean-Voided Midstream Performed By: #### A DDONUAPLUS, UHCG, URDS #### [place] [address] [place] Protein,Urine Negative Normal Negative The [facility] Comment on above: Order Comment: Name Collection Type:: Clean-Voided Midstream Performed By: #### A DDONUAPLUS, UHCG, URDS #### [place] [address] [place] RBC,Urine None Seen Normal 0-4 [facility] Comment on above: Order Comment: Name Collection Type:: Clean-Voided Midstream Performed By: #### A DDONUAPLUS, UHCG, URDS #### [place] [address] [place] Specificy [place],Urine 1.015 Normal 1.001-1.030 [facility] Comment on above: Order Comment: Name Collection Type:: Clean-Voided Midstream Performed By: #### A DDONUAPLUS, UHCG, URDS #### [place] [address] [place] Urobilinogen,Urine Normal Normal Normal [facility] Comment on above: Order Comment: Name Collection Type:: Clean-Voided Midstream Performed By: #### A DDONUAPLUS, UHCG, URDS #### [place] [address] [place] WBC,Urine 1-2 Normal 0-4 [facility] Comment on above: Order Comment: Name Collection Type:: Clean-Voided Midstream Performed By: #### A DDONUAPLUS, UHCG, URDS #### [place] [address] [place] Drug Screen,Urineon 11-07-19 Amphetamine Screen,Urine Negative Normal Negative [facility] Comment on above: Performed By: #### A DDONUAPLUS, UHCG, URDS #### [address] Barbiturate Screen,Urine Negative Normal Negative [facility] Comment on above: Performed By: #### A DDONUAPLUS, UHCG, URDS #### [place] [address] [place] Benzodiazepines Screen,Urine Negative Normal Negative [facility] Comment on above: Performed By: #### A DDONUAPLUS, UHCG, URDS #### [address] Cannabinoid Screen,Urine Positive High Negative [facility] Comment on above: Result Comment: Thes e are unconfirmed results and should not be used for legal purposes. Drug Cut-Off Concentration: AMPH 1000 ng/mL FIONA 200 ng/mL KIMMY 200 ng/mL COCM 300 ng/mL OP 300 ng/mL PCP 25 ng/mL THC 20 ng/mL PERFORMED BY: [place] [address] PATHOLOGIST INFORMATION SECURITY DIRECTOR ZULEIMA ZHANG M.D. Performed By: #### A DDONUAPLUS, UHCG, URDS #### [place] [address] [place] Cocaine Screen,Urine Negative Normal Negative [facility] Comment on above: Performed By: #### A DDONUAPLUS, UHCG, URDS #### [facility] [address] Opiate Screen,Urine Negative Normal Negative The [facility] Comment on above: Performed By: #### A DDONUAPLUS, UHCG, URDS #### [facility] [address] Phencyclidine Screen,Urine Negative Normal Negative [facility] Comment on above: Performed By: #### A DDONUAPLUS, UHCG, URDS #### [facility] [address] [place] [address] [place] Eosinophils Auto (Bld) [#/Vo l]Ordered By: Duane Simons on 11-06-2024 Eosinophils (Bld) [#/Vol] Automated eosinophil count 0.0-0.45 [facility] Eosinophils/100 WBC Auto (Bl d)Ordered By: Duane Simons on 11-06-2024 Eosinophils/100 WBC (Bld) Automated eosinophil % . [facility] Epithelial cells.squamous [# /area] in Urine sediment by Automated countOrdered By: Duane Simons on 11-06-2024 Epithelial cells.squamous Auto (Urine sed) [#/Area] Epithelial cells.squamous [#/area] in Urine sediment by Automated count [facility] Erythrocyte distribution wid th Auto (RBC) [Ratio]Ordered By: Duane Simons on 11-06-2024 Erythrocyte distribution width (RBC) [Ratio] Erythrocyte distribution width [Ratio] by Automated count 11.9-15.3 [facility] Erythrocytes [#/area] in Uri ne sediment by Automated countOrdered By: Duane Simons on 11-06-2024 RBC Auto (Urine sed) [#/Area] Erythrocytes [#/area] in Urine sediment by Automated count 0-4 [facility] Ethanol [Mass/volume] in Ser um or PlasmaOrdered By: uDane Simons on 11-06-2024 Ethanol [Mass/Vol] Ethanol [Mass/volume ] in Serum or Plasma [facility] Comment on above: Test not performed Ethyl Alcohol Profileon 10-18 Ethanol [Mass/Vol] mg/dL Normal [facility] Comment on above: Performed By: #### C BC, TSH3 wRFLX, [id number], LIPID, ETOH, CMP ####[facility] [place] [address] [facility] Percent Ethanol Not performed Normal [facility] Comment on above: Result Comment: PERF ORMED BY: [facility] [address] [place] [address] PATHOLOGIST INFORMATION SECURITY DIRECTOR ZULEIMA ZHANG M.D. Performed By: #### C BC, TSH3 wRFLX, [id number], LIPID, ETOH, CMP ####[facility] [place] [address] [facility] Globulin Calc (S) [Mass/Vol] Ordered By: Duane Simons on 11-06-2024 Globulin (S) [Mass/Vol] Serum globulin measurement by calculation (mass/volume) [facility] Glucose [Mass/volume] in Ser um or PlasmaOrdered By: Duane Simons on 11-06-2024 Glucose [Mass/Vol] Glucose [Mass/volume ] in Serum or Plasma 70-100 [facility] Comment on above: ADA recommended refe rence rangeRandom Glucose Reference Range is dependent on time and content of last meal. Glucose of more than 200 mg/dL in a nonstressed, ambulatory subject supports the diagnosis of Diabetes Mellitus. Glucose [Mass/volume] in Uri ne by Test stripOrdered By: Duane Simons on 11-06-2024 Glucose Test strip (U) [Mass/Vol] Glucose [Mass/volume] in Urine by Test strip Normal [facility] HCG ( test) IA.rapi d Ql (U)Ordered By: Duane Simons on 11-06-2024 HCG ( test) Ql (U) Urine human chorionic gonadotropin (hCG) detection by immunoassay [facility] HCG,Urineon 11-06-2024 Beta HCG ( test) Ql (U) Negative Normal [facility] Comment on above: Order Comment: Name Collection Type:: Clean-Voided Midstream Result Comment: PERF ORMED BY: [facility] [address] [place] [address] PATHOLOGIST INFORMATION SECURITY DIRECTOR ZULEIMA ZHANG M.D. Performed By: #### A DDONUAPLUS, CG, URDS #### [facility] [address] Hematocrit Auto (Bld) [Volum e fraction]Ordered By: Duane Simons on 11-06-2024 Hematocrit (Bld) [Volume fraction] Hematocrit [Volume Fraction] of Blood by Automated count 34.0-46.4 [facility] Hemoglobin Test strip Ql (U) Ordered By: Duane Simons on 11-06-2024 Hemoglobin Ql (U) Hemoglobin [Presence ] in Urine by Test strip High Negative [facility] Hemoglobin [Mass/volume] in BloodOrdered By: Duane Simons on 11-06-2024 Hemoglobin (Bld) [Mass/Vol] Hemoglobin [Mass/volume] in Blood 11.8-15.4 [facility] Hyaline casts [#/area] in Ur ine sediment by Automated countOrdered By: Duane Simons on 11-06-2024 Hyaline casts Auto (Urine sed) [#/Area] Hyaline casts [#/area] in Urine sediment by Automated count 0-8 [facility] Ketones Test strip Ql (U)Ord ered By: Duane Simons on 11-06-2024 Ketones Ql (U) Ketones [Presence] i n Urine by Test strip Negative [facility] Leukocyte esterase [Presence ] in Urine by Test stripOrdered By: Duane Simons on 11-06-2024 Leukocyte esterase Test strip Ql (U) Leukocyte esterase [Presence] in Urine by Test strip High Negative [facility] Leukocytes [#/area] in Urine sediment by Automated countOrdered By: Duane Simons on 11-06-2024 WBC Auto (Urine sed) [#/Area] Leukocytes [#/area] in Urine sediment by Automated count 0-4 [facility] Leukocytes [#/volume] correc arminda for nucleated erythrocytes in Blood by Automated counOrdered By: Duane Simons on 11-06-2024 WBC corrected for nucl RBC Auto (Bld) [#/Vol] Leukocytes [#/volume] corrected for nucleated erythrocytes in Blood by Automated coun 3.8-11.6 [facility] Lipid Panelon 05-21-2025 Cholesterol [Mass/Vol] 149 mg/dL Normal 140-200 [facility] Comment on above: Result Comment: Chol less than 200 mg/dl low risk Chol 201-239 mg/dl borderline risk Chol 240 mg/dl and greater high risk Performed By: #### C BC, TSH3 wRFLX, [id number], LIPID, ETOH, CMP ####[place] [address] [place] [address] [facility] Cholesterol in HDL [Mass/Vol] 44 mg/dL Normal 23-92 [facility] Comment on above: Result Comment: HDL CHOL ATP-III CLASSIFICATION Cardiovascular Risk HDL > or equal to 60 mg/dL LOW HDL < 40 mg/dL HIGH Performed By: #### C BC, TSH3 wRFLX, [id number], LIPID, ETOH, CMP ####[place] [address] [place] [address] [facility] Cholesterol.total/Cho lesterol in HDL [Mass ratio] 3.4 {ratio} Normal <5.0 [facility] Comment on above: Performed By: #### C BC, TSH3 wRFLX, [id number], LIPID, ETOH, CMP ####[place] [address] [place] [address] [facility] LDL Cholesterol,Calculate d 96 mg/dL Normal 0-100 [facility] Comment on above: Result Comment: LDL ATP III CLASSIFICATION LDL less than 100 mg/dL Optimal LDL 100-129 mg/dL Near or above optimal LDL 130-159 mg/dL Borderline high LDL 160-189 mg/dL High LDL greater than 189 mg/dL Very high Performed By: #### C BC, TSH3 wRFLX, [id number], LIPID, ETOH, CMP ####[facility] [place] [address] [facility] Triglyceride w/Reflex 44 mg/dL Normal 0-149 [facility] Comment on above: Result Comment: TRIG ATP III CLASSIFICATION TRIG less than 150 mg/dL Normal TRIG 150-199 mg/dL Borderline high TRIG 200-500 mg/dL High TRIG greater than 500 mg/dL Very high Standard traceable to the Center for Disease Conrtrol and Prevention (CDC) test method. Performed By: #### C BC, TSH3 wRFLX, [id number], LIPID, ETOH, CMP ####[facility] [id number] [place] [address] [facility] VLDL CHOLESTEROL 8 mg/dL Normal [facility] Comment on above: Performed By: #### C BC, TSH3 wRFLX, [id number], LIPID, ETOH, CMP ####[facility] [id number] [place] [address] [facility] Lymphocytes Auto (Bld) [#/Vo l]Ordered By: Duane Simons on 11-06-2024 Lymphocytes (Bld) [#/Vol] Lymphocytes [#/volume] in Blood by Automated count 1.00-4.8 [facility] Lymphocytes/100 WBC Auto (Bl d)Ordered By: Duane Simons on 11-06-2024 Lymphocytes/100 WBC (Bld) Lymphocytes/100 leukocytes in Blood by Automated count . [facility] MCH Auto (RBC) [Entitic mass ]Ordered By: Duane Simons on 11-06-2024 MCH (RBC) [Entitic mass] MCH [Entitic mass] by Automated count 24.7-34.3 [facility] MCHC Auto (RBC) [Mass/Vol]Or dered By: Duane Simons on 11-06-2024 MCHC (RBC) [Mass/Vol] MCHC [Mass/volume] by Automated count 32.0-35.0 [facility] MCV Auto (RBC) [Entitic vol] Ordered By: Duane Simons on 11-06-2024 MCV (RBC) [Entitic vol] MCV [Entitic volume] by Automated count 80-100 [facility] Monocyte distribution width [Entitic volume] in Blood by AutomatedOrdered By: Duane Simons on 11-06-2024 Monocyte distribution width Auto (Bld) [Entitic vol] Monocyte distribution width [Entitic volume] in Blood by Automated 0.00-20.00 [facility] Monocytes Auto (Bld) [#/Vol] Ordered By: Duane Simons on 11-06-2024 Monocytes (Bld) [#/Vol] Automated blood monocyte count 0.0-0.8 [facility] Monocytes/100 WBC Auto (Bld) Ordered By: Duane Simons on 11-06-2024 Monocytes/100 WBC (Bld) Automated monocyte % . [facility] Neutrophils Auto (Bld) [#/Vo l]Ordered By: Duane Simons on 11-06-2024 Neutrophils (Bld) [#/Vol] Neutrophils [#/volume] in Blood by Automated count 1.8-7.7 [facility] Neutrophils/100 WBC Auto (Bl d)Ordered By: Duane Simons on 11-06-2024 Neutrophils/100 WBC (Bld) Automated neutrophil % . [facility] Nitrite Test strip Ql (U)Ord ered By: Duane Simons on 11-06-2024 Nitrite Ql (U) Nitrite [Presence] i n Urine by Test strip Negative [facility] No Panel InformationOrdered By: Duane Simons on 11-06-2024 Estimated GFR (CKD-EPI) > 60.0 mL/Min [facility] Creatinine Clearance (Chem 112.89 [facility] Nucleated erythrocytes [Pres ence] in Blood by Automated countOrdered By: Duane Simons on 11-06-2024 Nucleated RBC Auto Ql (Bld) Nucleated erythrocytes [Presence] in Blood by Automated count 0-0.5 [facility] Opiates [Presence] in Urine by Screen methodOrdered By: Duane Simons on 11-06-2024 Opiates Screen Ql (U) Opiates [Presence] in Urine by Screen method Negative [facility] Phencyclidine Screen Ql (U)O rdered By: Duane Simons on 11-06-2024 Phencyclidine Ql (U) Phencyclidine [Pres ence] in Urine by Screen method Negative [facility] Platelet mean volume Auto (B ld) [Entitic vol]Ordered By: Duane Simons on 11-06-2024 Platelet mean volume (Bld) [Entitic vol] Platelet mean volume [Entitic volume] in Blood by Automated count 6.3-10.7 [facility] Platelets Auto (Bld) [#/Vol] Ordered By: Duane Simons on 11-06-2024 Platelets (Bld) [#/Vol] Platelets [#/volume] in Blood by Automated count 150-450 [facility] Potassium [Moles/volume] in Serum or PlasmaOrdered By: Duane Simons on 11-06-2024 Potassium [Moles/Vol] Potassium [Moles/v olume] in Serum or Plasma 3.5-5.1 [facility] Protein Test strip (U) [Mass /Vol]Ordered By: Duane Simons on 11-06-2024 Protein (U) [Mass/Vol] Protein [Mass/volume] in Urine by Test strip Negative [facility] Protein [Mass/volume] in Ser um or PlasmaOrdered By: Duane Simons on 11-06-2024 Protein [Mass/Vol] Protein [Mass/volume ] in Serum or Plasma 6.4-8.9 [facility] RBC Auto (Bld) [#/Vol]Ordere d By: Dunae Simons on 11-06-2024 RBC (Bld) [#/Vol] Erythrocytes [#/volu me] in Blood by Automated count 3.60-5.00 [facility] Serum or plasma albumin/glob ulin mass ratioOrdered By: Duane Simons on 11-06-2024 Albumin/Globulin [Mass ratio] Serum or plasma albumin/globulin mass ratio [facility] Serum or plasma anion gap de terminationOrdered By: Duane Simons on 11-06-2024 Anion gap [Moles/Vol] Serum or plasma an ion gap determination 6.0-15.0 [facility] Serum or plasma total choles terol/high density lipoprotein (HDL) cholesterol mass ratOrdered By: Kit Gutierrez on 11-06-2024 Cholesterol.total/Cho lesterol in HDL [Mass ratio] Serum or plasma total cholesterol/high density lipoprotein (HDL) cholesterol mass rat <5.0 [facility] Sodium [Moles/volume] in Ser um or PlasmaOrdered By: Duane Simons on 11-06-2024 Sodium [Moles/Vol] Sodium [Moles/volume ] in Serum or Plasma 136-145 [facility] Specific gravity Test strip (U) [Rel density]Ordered By: Duane Simons on 11-06-2024 Specific gravity (U) [Rel density] Specific gravity of Urine by Test strip 1.001-1.030 [facility] Thyroid Stim Hormone w/Rflxo n 11-06-2024 Thyroid Stim Hormone w/Rflx 0.79 u[iU]/mL Normal 0.45-5.33 [facility] [facility] Comment on above: Performed By: #### A DDONUAPLUS, UHCG, URDS #### [facility] [address] Thyrotropin [Units/volume] i n Serum or PlasmaOrdered By: Kit Gutierrez on 11-06-2024 TSH Qn Thyrotropin [Units/volume] in Serum or Plasma 0.45-5.33 [facility] Triglyceride [Mass/volume] i n Serum or PlasmaOrdered By: Kit Gutierrez on 11-06-2024 Triglyceride [Mass/Vol] Triglyceride [Mass/volume] in Serum or Plasma 0-149 [facility] Comment on above: TRIG ATP III CLASSIF ICATIONTRIG less than 150 mg/dL NormalTRIG 150-199 mg/dL Borderline highTRIG 200-500 mg/dL High TRIG greater than 500 mg/dL Very highStandard traceable to the Center for Disease Conrtrol and Prevention (CDC) test method. Urea nitrogen [Mass/volume] in Serum or PlasmaOrdered By: Duane Simons on 11-06-2024 Urea nitrogen [Mass/Vol] Urea nitrogen [Mass/volume] in Serum or Plasma Low 7-25 [facility] Urobilinogen Test strip (U) [Mass/Vol]Ordered By: Duane Simons on 11-06-2024 Urobilinogen (U) [Mass/Vol] Urobilinogen [Mass/volume] in Urine by Test strip Normal [facility] Vitamin D 25 Hydroxy Totalon 11-06-2024 Vitamin D 25 Hydroxy Total 7.8 ng/mL Low 30-100 [facility] Comment on above: Result Comment: CEM MIN D STATUS 25(OH)VITAMIN D RANGE (ng/mL) Deficient <20 Insufficient 20 to <30 Sufficient 30 to 100 Reference: Malou MF,Roly NC, Kassidy SHAH, et al. Evaluation,treatment, and prevention of vitamin D deficiency; an Endocrine Society clinical practice guideline. JCEM. 2010; 96(7):1911-30. PERFORMED BY: [facility] [address] [place] [id number] PATHOLOGIST INFORMATION SECURITY DIRECTOR ZULEIMA ZHANG M.D. Performed By: #### A DDDENEENUAPLUS, UHCG, URDS #### [facility] [address] Vitamin D+Metabolites [Mass/ volume] in Serum or PlasmaOrdered By: Kit Gutierrez on 11-06-2024 Vitamin D+Metabolites [Mass/Vol] Vitamin D+Metabolites [Mass/volume] in Serum or Plasma Low 30-100 [facility] Comment on above: VITAMIN D STATUS 25( [place])VITAMIN D RANGE (ng/mL) Deficient <20 Insufficient 20 to <30Sufficient 30 to 100Reference: Malou MF,Roly NC, Kassidy SHAH, et al. Evaluation,treatment, and prevention of vitamin D deficiency; an Endocrine Society clinical practice guideline. JCEM. 2010; 96(7):1911-30. WBC Auto (Bld) [#/Vol]Ordere d By: Duane Simons on 11-06-2024 WBC (Bld) [#/Vol] Leukocytes [#/volume ] in Blood by Automated count 3.8-11.6 [facility] pH Test strip (U)Ordered By: Duane Simons on 11-06-2024 pH (U) pH of Urine by Test strip 5.0-9.0 [facility] CBC AND AUTO DIFFon 09-17-19 25 ABSOLUTE BASOPHIL 0.0 X10E9/L Normal 0.0-0.2 [facility] Comment on above: Performed By: #### C BCA, CMP #### [facility] ([id number]) [address] [place] [address] 97916 ABSOLUTE NEUTROPHIL 3.0 X10E9/L Normal 1.5-6.6 [facility] Comment on above: Performed By: #### C BCA, CMP #### [facility] ([id number]) [address] [place] [address] 33943 Basophils/100 WBC (Bld) 0.4 % Normal [facility] Comment on above: Performed By: #### C BCA, CMP #### [facility] ([id number]) [address] [place] [address] 23765 Eosinophils (Bld) [#/Vol] 0.1 10*3/uL Normal 0.0-0.4 [facility] Comment on above: Performed By: #### C DARIO, CMP #### [facility] ([id number]) [address] [place] [address] 91352 Eosinophils/100 WBC (Bld) 1.0 % Normal [facility] Comment on above: Performed By: #### C DARIO, CMP #### [facility] ([id number]) [address] [place] [address] 86052 Erythrocyte distribution width (RBC) [Ratio] 15.6 % High 11.5-15.0 [facility] Comment on above: Performed By: #### C DARIO, CMP #### [facility] ([id number]) [address] [place] [address] 06328 Hematocrit (Bld) [Volume fraction] 35.7 % Normal 35-47 [facility] Comment on above: Performed By: #### C DARIO, CMP #### [facility] ([id number]) [address] [place] [address] 85877 Hemoglobin (Bld) [Mass/Vol] 12.4 g/dL Normal 11.7-15.5 [facility] Comment on above: Performed By: #### C DARIO, CMP #### [facility] ([id number]) [address] [place] [address] 72058 Lymphocytes (Bld) [#/Vol] 2.1 10*3/uL Normal 1.0-3.5 [facility] Comment on above: Performed By: #### C DARIO, CMP #### [facility] ([id number]) [address] [place] [address] 67305 Lymphocytes/100 WBC (Bld) 37.9 % Normal [facility] Comment on above: Performed By: #### C DARIO, CMP #### [facility] ([id number]) [address] [place] [address] 92944 MCH (RBC) [Entitic mass] 29.4 pg Normal 27-34 [facility] Comment on above: Performed By: #### C DARIO, CMP #### [facility] ([id number]) [address] [place] [address] 70982 MCHC (RBC) [Mass/Vol] 34.6 g/dL Normal 32-36 [facility] Comment on above: Performed By: #### C DARIO, CMP #### [facility] ([id number]) [address] [place] [address] 04266 MCV (RBC) [Entitic vol] 85 fL Normal 80-100 [facility] Comment on above: Performed By: #### C DARIO, CMP #### [facility] ([id number]) [address] [place] [address] 35220 Monocytes (Bld) [#/Vol] 0.4 10*3/uL Normal 0-0.9 [facility] Comment on above: Performed By: #### C DARIO, CMP #### [facility] ([id number]) [address] [place] [address] 20300 Monocytes/100 WBC (Bld) 7.5 % Normal [facility] Comment on above: Performed By: #### C DARIO, CMP #### [facility] ([id number]) [address] [place] [address] 00920 Neutrophils/100 WBC (Bld) 53.2 % Normal [facility] Comment on above: Performed By: #### C BCA, CMP #### [facility] ([id number]) [address] [place] [address] 02134 Platelet mean volume (Bld) [Entitic vol] 8.0 fL Normal 7-12 [facility] Comment on above: Performed By: #### C BCA, CMP #### [facility] ([id number]) [address] [place] [address] 01159 Platelets (Bld) [#/Vol] 217 10*3/uL Normal 150-450 [facility] Comment on above: Performed By: #### C BCA, CMP #### [facility] ([id number]) [address] [place] [address] 40864 RBC COUNT 4.20 X10E12/L Normal 3.80-5.20 [facility] Comment on above: Performed By: #### C BCA, CMP #### [facility] ([id number]) [address] [place] [address] 47050 WBC (Bld) [#/Vol] 5.7 10*3/uL Normal 4.0-11.0 [facility] Comment on above: Performed By: #### C BCA, CMP #### [facility] ([id number]) [address] [place] [address] 43467 COMPREHENSIVE METABOLIC PANE [place] 09-16-2024 Albumin [Mass/Vol] 4.6 g/dL Normal 3.2-5.3 [facility] Comment on above: Performed By: #### C BCA, CMP #### [facility] ([id number]) [address] [place] [address] 88347 ALP [Catalytic activity/Vol] 48 U/L Normal 39-130 [facility] Comment on above: Performed By: #### C BCA, CMP #### [facility] ([id number]) [address] [place] [address] 21799 ALT [Catalytic activity/Vol] 12 U/L Normal 0-31 [facility] Comment on above: Performed By: #### C BCA, CMP #### [facility] ([id number]) [address] [place] [address], [place] [address] Anion gap [Moles/Vol] 8 mmol/L Normal 5-15 [facility] Comment on above: Performed By: #### C BCA, CMP #### [facility] ([id number]) [address] [place] [address] 61633 AST [Catalytic activity/Vol] 17 U/L Normal 0-41 [facility] Comment on above: Performed By: #### C BCA, CMP #### [facility] ([id number]) [address] [place] [address] 40386 Bilirubin [Mass/Vol] 0.3 mg/dL Normal 0.3-1.2 [facility] Comment on above: Performed By: #### C BCA, CMP #### [facility] ([id number]) [address] [place] [address] 51422 Calcium [Mass/Vol] 9.5 mg/dL Normal 8.5-10.5 [facility] Comment on above: Performed By: #### C BCA, CMP #### [facility] ([id number]) [address] [place] [address] 89481 Chloride [Moles/Vol] 102 mmol/L Normal 98-109 [facility] Comment on above: Performed By: #### C BCA, CMP #### [facility] ([id number]) [address] [place] [address] 14175 CO2 [Moles/Vol] 26 mmol/L Normal 22-32 [facility] Comment on above: Performed By: #### C BCA, CMP #### [facility] ([id number]) [address] [place] [address] 95245 Creatinine [Mass/Vol] 0.71 mg/dL Normal 0.40-1.00 [facility] Comment on above: Result Comment: METH OD TRACEABLE TO IDMS STANDARD Performed By: #### C BCA, CMP #### [facility] ([id number]) [address] [place] [address] 54546 eGFR (CKD-EPI) NON-RACE DEPENDENT >90 Normal >59 [facility] Comment on above: Result Comment: Reported eGFR is based on the CKD-EPI 2020 equation that does not use a race coefficient. Performed By: #### C BCA, CMP #### [facility] ([id number]) [address] [place] [address] 59842 Glucose [Mass/Vol] 89 mg/dL Normal 65-99 [facility] Comment on above: Performed By: #### C BCA, CMP #### [facility] ([id number]) [address] [place] [address] 62425 Potassium [Moles/Vol] 3.5 mmol/L Normal 3.5-5.0 [facility] Comment on above: Performed By: #### C BCA, CMP #### [facility] ([id number]) [address] [place] [address] 33309 Protein [Mass/Vol] 7.8 g/dL Normal 6.0-8.0 [facility] Comment on above: Performed By: #### C BCA, CMP #### [facility] ([id number]) [address] [place] [address] 83932 Sodium [Moles/Vol] 136 mmol/L Normal 134-146 [facility] Comment on above: Performed By: #### C BCA, CMP #### [facility] ([id number]) [address] [place] [address] 46334 Urea nitrogen [Mass/Vol] 8 mg/dL Normal 5-23 [facility] Comment on above: Performed By: #### C BCA, CMP #### [facility] ([id number]) [address] [place] [address] ABDOMEN AND PELVIS W CONT on [...] Blandon MD on 09/16/2024 9:31 PM Normal [facility] URN MACROSCOPIC NURon 2024 BILIRUBIN LYNSEY Negative Normal NEG [facility] Comment on above: Performed By: #### N UM #### [facility] ([id number]) [address] [place] [address] 73148 BLOOD/HGB LYNSEY Trace Abnormal NEG [facility] Comment on above: Performed By: #### N UM #### [facility] ([id number]) [address] [place] [address] 75971 GLUCOSE LYNSEY Negative Normal NEG [facility] Comment on above: Performed By: #### N UM #### [facility] ([id number]) [address] [place] [address] 86811 KETONES LYNSEY Negative Normal NEG [facility] Comment on above: Performed By: #### N UM #### [facility] ([id number]) [address] [place] [address] 74946 LEUKOCYTE ESTERASE LYNSEY Negative Normal NEG [facility] Comment on above: Performed By: #### N UM #### [facility] ([id number]) [address] [place] [address] 56796 NITRITE LYNSEY Negative Normal NEG [facility] Comment on above: Performed By: #### N UM #### [facility] ([id number]) [address] [place] [address] 08477 PH LYNSEY 5.5 Normal 5.0-8.5 [facility] Comment on above: Performed By: #### N UM #### [facility] ([id number]) [address] [place] [address] [place] [address] PROTEIN LYNSEY Negative Normal NEG [facility] Comment on above: Performed By: #### N UM #### [facility] ([id number]) [address] [place] [address] 92291 SPECIFIC GRAVITY LYNSEY 1.020 Normal 1.003-1.035 [facility] Comment on above: Performed By: #### N UM #### [facility] ([id number]) [address] [place] [address] [place] [address] UROBILINOGEN LYNSEY 0.2 eu/dL Normal <1.1 [facility] Comment on above: Performed By: #### N UM #### [facility] ([id number]) [address] [place] [address] 88469 Cult,Aerobe/Anaerobeon 04-16 Cult,Aerobe/Anaerobe Specimen Descriptio n .ABDOMEN SWAB Special Requests Site: Swab Direct Exam NO NEUTROPHILS SEEN NO BACTERIA SEEN Culture NORMAL SKIN EMILIA VEILLONELLA SPECIES RARE GROWTH Identification by MALDI-TOF Report Status FINAL 04/16/2024 Normal [facility] Comment on above: Performed By: #### C P, LIP, CDP #### [facility] [address] [place] [address] Gear Generator Set Up Operator: Lakhwinder Tim MD Culture, Anaerobic and Aerob icon 04-16-2024 Interpretation and review of laboratory results Abnormal [facility] Microorganism identified Cx Nom (Unsp spec) NORMAL SKIN EMILIA [facility] Microorganism identified Cx Nom (Unsp spec) VEILLONELLA SPECIES RARE GROWTH Identification by MALDI-TOF Abnormal [facility] Microorganism or agent identified Nom (Unsp spec) NO NEUTROPHILS SEEN [facility] Microorganism or agent identified Nom (Unsp spec) NO BACTERIA SEEN [facility] Service comment (Unsp spec) [Interp] Site: Swab [facility] Specimen Description .ABDOMEN SWAB B on [facility] XR ABDOMEN (KUB) (SINGLE AP VIEW)on 04-16-2024 [...] Christian Ni MD 04/16/24 Final result Normal [facility] XR Abdomen Single viewon Postoperative ileus. MHPN [...] normal limits for age Other: None [facility]PN Christian Batista MD - 04/16/2024 EXAMINATION: ONE SUPINE XRAY [...] age Other: None IMPRESSION: Postoperative ileus. [facility] Radiology Study observation (narrative) [facility] [employer] [facility] Abdomen Single viewOrdere d By: Christian Ni on 04-16-2024 [facility] [employer] [facility] Work Phone: CBC auto differentialon 03-20 Basophils (Bld) [#/Vol] [facility] Basophils/100 WBC (Bld) 0 % 0 - 2 % [facility] Eosinophils (Bld) [#/Vol] 0.33 10*3/uL [facility] Eosinophils/100 WBC (Bld) 8 % High 1 - 4 % [facility] Erythrocyte distribution width (RBC) [Ratio] 13.0 % 11.8 - 14.4 % [facility] Hematocrit (Bld) [Volume fraction] 28.5 % Low 36.3 - 47.1 % [facility] Hemoglobin (Bld) [Mass/Vol] 9.3 g/dL Low 11.9 - 15.1 g/dL [facility] Immature granulocytes (Bld) [#/Vol] [facility] Immature granulocytes/100 WBC (Bld) 0 % 0 [facility] Interpretation and review of laboratory results Abnormal [facility] Lymphocytes/100 WBC (Bld) 45 % High 24 - 43 % [facility] Lymphocytes/100 WBC (Bld) 1.87 % [facility] MCH (RBC) [Entitic mass] 28.6 pg 25.2 - 33.5 pg [facility] MCHC (RBC) [Mass/Vol] 32.6 g/dL 28.4 - 34.8 g/dL [facility] MCV (RBC) [Entitic vol] 87.7 fL 82.6 - 102.9 fL [facility] Monocytes/100 WBC (Bld) 9 % 3 - 12 % [facility] Monocytes/100 WBC (Bld) 0.39 % [facility] Neutrophils/100 WBC (Bld) 38 % 36 - 65 % [facility] Nucleated RBC/100 WBC (Bld) [Ratio] 0.0 % 0.0 per 100 WBC [facility] Platelet mean volume (Bld) [Entitic vol] 9.7 fL 8.1 - 13.5 fL [facility] Platelets (Bld) [#/Vol] 204 10*3/uL [facility] RBC (Bld) [#/Vol] 3.25 10*6/uL Low 3.95 - 5.1 1 m/uL [facility] Segmented neutrophils/100 WBC (Bld) 1.62 % [facility] WBC other (Bld) [#/Vol] 4.2 [facility] CBC with Diffon 04-15-2024 Abs. Basophil <0.03 Normal 0.00-0.20 [facility] Comment on above: Performed By: #### C DP #### [facility] [address] [place] [address] Gear Generator Set Up Operator: Lakhwinder Tim MD Abs.Imm.Granulocyte <0.03 Normal 0.00-0.30 [facility] Comment on above: Performed By: #### C DP #### [facility] [address] [place] [address] [address], [place] [address] Gear Generator Set Up Operator: Lakhwinder Tim MD Abs.Neutrophil (Seg) 1.62 k/uL Normal 1.50-8.10 [facility] Comment on above: Performed By: #### C DP #### [address] [place], [facility]83 Gear Generator Set Up Operator: Lakhwinder Tim MD Basophils/100 WBC (Bld) 0 % Normal 0-2 [facility] Comment on above: Performed By: #### C DP #### [address] [place], [facility]83 Gear Generator Set Up Operator: Lakhwinder Tim MD Eosinophils (Bld) [#/Vol] 0.33 10*3/uL Normal 0.00-0.44 [facility] Comment on above: Performed By: #### C DP #### [address] [place], [facility]83 Gear Generator Set Up Operator: Lakhwinder Tim MD Eosinophils/100 WBC (Bld) 8 % High 1-4 [facility] Comment on above: Performed By: #### C DP #### [address] [place], [facility]83 [employer] Gener[employer] Set Up Operator: Lakhwinder Tim MD Erythrocyte distribution width (RBC) [Ratio] 13.0 % Normal 11.8-14.4 [facility] Comment on above: Performed By: #### C DP #### [address] [place], [facility]83 [employer] Gener[employer] Set Up Operator: Lakhwinder Tim MD Hematocrit (Bld) [Volume fraction] 28.5 % Low 36.3-47.1 [facility] Comment on above: Performed By: #### C DP #### [address] [place], [facility]83 Gear Generator Set Up Operator: Lakhwinder Tim MD Hemoglobin (Bld) [Mass/Vol] 9.3 g/dL Low 11.9-15.1 [facility] Comment on above: Performed By: #### C DP #### [facility] [address] [place], [place] [id number] Gear Generator Set Up Operator: Lakhwinder Tim MD Immature granulocytes/100 WBC (Bld) 0 % Normal 0 [facility] Comment on above: Performed By: #### C DP #### [facility] [address] [place], [facility]83 [employer] Gener[employer] Set Up Operator: Lakhwinder Tim MD Lymphocytes (Bld) [#/Vol] 1.87 10*3/uL Normal 1.10-3.70 [facility] Comment on above: Performed By: #### C DP #### [facility] [address] [place], [facility]83 [employer] Gener[employer] Set Up Operator: Lakhwinder Tim MD Lymphocytes/100 WBC (Bld) 45 % High 24-43 [facility] Comment on above: Performed By: #### C DP #### [facility] [address] [place], [place] [id number] Gear Generator Set Up Operator: Lakhwinder Tim MD MCH (RBC) [Entitic mass] 28.6 pg Normal 25.2-33.5 [facility] Comment on above: Performed By: #### C DP #### [facility] [address] [place] [address] Dr[place], [facility] ( Gear Generator Set Up Operator: Lakhwinder Tim MD MCHC (RBC) [Mass/Vol] 32.6 g/dL Normal 28.4-34.8 [facility] Comment on above: Performed By: #### C DP #### [facility] [address] [place] [address] Gear Generator Set Up Operator: Lakhwinder Tim MD MCV (RBC) [Entitic vol] 87.7 fL Normal 82.6-102.9 [facility] Comment on above: Performed By: #### C DP #### [facility] [address] [place], [place] [id number] Gear Generator Set Up Operator: Lakhwinder Tim MD Monocytes (Bld) [#/Vol] 0.39 10*3/uL Normal 0.10-1.20 [facility] Comment on above: Performed By: #### C DP #### [facility] [address] [place], [place] [address] Gear Generator Set Up Operator: Lakhwinder Tim MD Monocytes/100 WBC (Bld) 9 % Normal 3-12 [facility] Comment on above: Performed By: #### C DP #### [facility] [address] [place], [facility]83 [employer] Gener[employer] Set Up Operator: Lakhwinder Tim MD Neutrophil (Seg) 38 % Normal 36-65 [facility] Comment on above: Performed By: #### C DP #### [facility] [address] [place], [facility]83 [employer] Set Up Operator: Lakhwinder Tim MD NRBC Automated 0.0 per 100 WBC Normal 0.0 [facility] Comment on above: Performed By: #### C DP #### [address] [place], [place] [id number] [employer] Generator Set Up Operator: Lakhwinder Tim MD Platelet mean volume (Bld) [Entitic vol] 9.7 fL Normal 8.1-13.5 [facility] Comment on above: Performed By: #### C DP #### [facility] [address] [place], [place] [id number] Gear Generator Set Up Operator: Lakhwinder Tim MD Platelets (Bld) [#/Vol] 204 10*3/uL Normal 138-453 [facility] Comment on above: Performed By: #### C DP #### [facility] [address] [place], [place] 4055383 Gear Generator Set Up Operator: Lakhwinder Tim MD RBC (Bld) [#/Vol] 3.25 10*6/uL Low 3.95-5.11 [facility] Comment on above: Performed By: #### C DP #### [facility] [address] [place] [address] Gear Generator Set Up Operator: Lakhwinder Tim MD WBC (Bld) [#/Vol] 4.2 10*3/uL Normal 3.5-11.3 [facility] Comment on above: Performed By: #### C DP #### [facility] [address] [place], [place] 3724[address] Gear Generator Set Up Operator: Lakhwinder Tim MD Comp Metabolic Pr/rfx MGon 1 - Albumin [Mass/Vol] 3.2 g/dL Low 3.5-5.2 [facility] Comment on above: Performed By: #### C DP #### [address] [place], [place] [address] Gear Generator Set Up Operator: Lakhwinder Tim MD Albumin/Glob Ratio 1.1 Normal 1.0-2.5 [facility] Comment on above: Performed By: #### C DP #### [address] [place] [address] Gear Generator Set Up Operator: Lakhwinder Tim MD Alkaline Phos 75 U/L Normal 35-104 [facility] Comment on above: Performed By: #### C DP #### [facility] [address] [place] [address] [place] [address] Gear Generator Set Up Operator: Lakhwinder Tim MD ALT [Catalytic activity/Vol] 10 U/L Normal 10-35 [facility] Comment on above: Performed By: #### C DP #### [address] [place], [place] 3309383 Gear Generator Set Up Operator: Lakhwinder Tim MD Anion gap [Moles/Vol] 6 mmol/L Low 9-16 [facility] Comment on above: Performed By: #### C DP #### [facility] [address] [place] [address] [place], [place] 1563883 Gear Generator Set Up Operator: Lakhwinder Tim MD AST [Catalytic activity/Vol] 10 U/L Normal 10-35 [facility] Comment on above: Performed By: #### C DP #### [facility] [address] [place], [place] 8943183 Gear Generator Set Up Operator: aLkhwinder Tim MD Bilirubin [Mass/Vol] mg/dL Normal 0.00-1.20 [facility] Comment on above: Performed By: #### C DP #### [facility] [address] [place], [place] [phone] Gear Generator Set Up Operator: Lakhwinder Tim MD BUN/CRE Ratio 10 Normal 9-20 [facility] Comment on above: Performed By: #### C DP #### [facility] [address] [place], [place] 8498183 [employer] Generator Set Up Operator: Lakhwinder Tim MD Calcium [Mass/Vol] 8.6 mg/dL Normal 8.6-10.4 [facility] Comment on above: Performed By: #### C DP #### [facility] [address] [place], [place] 3194183 [employer] Generator Set Up Operator: Lakhwinder Tim MD Chloride [Moles/Vol] 104 mmol/L Normal 98-107 [facility] Comment on above: Performed By: #### C DP #### [facility] [address] [place], [place] [id number] [employer] Operator: Lakhwinder Tim MD CO2 [Moles/Vol] 28 mmol/L Normal 20-31 [facility] Comment on above: Performed By: #### C DP #### [facility] [address] [place], [place] [id number] [employer] Operator: Lakhwinder Tim MD Creatinine [Mass/Vol] 0.5 mg/dL Normal 0.50-0.90 [facility] Comment on above: Performed By: #### C DP #### [facility] [address] [place] [address] [employer] Operator: Lakhwinder Tim MD GFR/1.73 sq M.predicted among non-blacks MDRD (S/P/Bld) [Vol rate/Area] mL/min/{1.73_m2} Normal >60 [facility] Comment on above: Result Comment: These results [...] secretion. Performed By: #### C DP #### [facility] [address] [place] [address] [place] [address] [employer] Operator: Lakhwinder Tim MD Glucose [Mass/Vol] 89 mg/dL Normal 74-99 [facility] Comment on above: Performed By: #### C DP #### [address] [place] [address] [employer] Operator: Lakhwinder Tim MD Potassium [Moles/Vol] 3.8 mmol/L Normal 3.7-5.3 [facility] Comment on above: Performed By: #### C DP #### [facility] [address] [place] [address] [place] [address] [employer] Operator: Lakhwinder Tim MD Protein [Mass/Vol] 6.2 g/dL Low 6.6-8.7 [facility] Comment on above: Performed By: #### C DP #### [address] [place] [address] [employer] Operator: Lakhwinder Tim MD Sodium [Moles/Vol] 138 mmol/L Normal 136-145 [facility] Comment on above: Performed By: #### C DP #### [address] [place] [address] [employer] Operator: Lakhwinder Tim MD Urea nitrogen [Mass/Vol] 5 mg/dL Low 6-20 [facility] Comment on above: Performed By: #### C DP #### [facility] [address] [place] [address] [employer] Operator: Lahkwinder Tim MD Comprehensive Metabolic Pane l w/ Reflex to MGon 04-15-2024 Albumin [Mass/Vol] 3.2 g/dL Low 3.5 - 5.2 g/dL [facility] Albumin/Globulin [Mass ratio] 1.1 {ratio} 1.0 - 2.5 [facility] ALP [Catalytic activity/Vol] 75 U/L 35 - 104 U/L [facility] ALT [Catalytic activity/Vol] 10 U/L 10 - 35 U/L [facility] Anion gap [Moles/Vol] 6 mmol/L Low 9 - 16 mmol/L [facility] AST [Catalytic activity/Vol] 10 U/L 10 - 35 U/L [facility] Bilirubin [Mass/Vol] mg/dL 0.00 - 1.20 mg/dL [facility] Calcium [Mass/Vol] 8.6 mg/dL 8.6 - 10. 4 mg/dL [facility] Chloride [Moles/Vol] 104 mmol/L 98 - 10 7 mmol/L [facility] CO2 [Moles/Vol] 28 mmol/L 20 - 31 mmol/L [facility] Creatinine [Mass/Vol] 0.5 mg/dL 0.50 - 0.90 mg/dL [facility] Est, Glom Filt Rate - PINF [facility] Comment on above: These results are not [...] 89 mg/dL 74 - 99 mg/dL [facility] Interpretation and review of laboratory results Abnormal [facility] Potassium [Moles/Vol] 3.8 mmol/L 3.7 - 5.3 mmol/L [facility] Protein [Mass/Vol] 6.2 g/dL Low 6.6 - 8.7 g/dL [facility] Sodium [Moles/Vol] 138 mmol/L 136 - 145 mmol/L [facility] Urea nitrogen [Mass/Vol] 5 mg/dL Low 6 - 20 mg/dL [facility] Urea nitrogen/Creatinine [Mass ratio] 10 mg/mg 9 - 20 [facility] CBC auto differentialon 03-20 Basophils (Bld) [#/Vol] [facility] Basophils/100 WBC (Bld) 0 % 0 - 2 % [facility] Eosinophils (Bld) [#/Vol] 0.28 10*3/uL [facility] Eosinophils/100 WBC (Bld) 6 % High 1 - 4 % [facility] Erythrocyte distribution width (RBC) [Ratio] 13.2 % 11.8 - 14.4 % [facility] Hematocrit (Bld) [Volume fraction] 27.5 % Low 36.3 - 47.1 % [facility] Hemoglobin (Bld) [Mass/Vol] 8.8 g/dL Low 11.9 - 15.1 g/dL [facility] Immature granulocytes (Bld) [#/Vol] [facility] Immature granulocytes/100 WBC (Bld) 0 % 0 [facility] Interpretation and review of laboratory results Abnormal [facility] Lymphocytes/100 WBC (Bld) 35 % 24 - 43 % [facility] Lymphocytes/100 WBC (Bld) 1.62 % [facility] MCH (RBC) [Entitic mass] 28.2 pg 25.2 - 33.5 pg [facility] MCHC (RBC) [Mass/Vol] 32.0 g/dL 28.4 - 34.8 g/dL [facility] MCV (RBC) [Entitic vol] 88.1 fL 82.6 - 102.9 fL [facility] Monocytes/100 WBC (Bld) 10 % 3 - 12 % [facility] Monocytes/100 WBC (Bld) 0.47 % [facility] Neutrophils/100 WBC (Bld) 49 % 36 - 65 % [facility] Nucleated RBC/100 WBC (Bld) [Ratio] 0.0 % 0.0 per 100 WBC [facility] Platelet mean volume (Bld) [Entitic vol] 10.3 fL 8.1 - 13.5 fL [facility] Platelets (Bld) [#/Vol] 183 10*3/uL [facility] RBC (Bld) [#/Vol] 3.12 10*6/uL Low 3.95 - 5.1 1 m/uL [facility] Segmented neutrophils/100 WBC (Bld) 2.22 % [facility] WBC other (Bld) [#/Vol] 4.6 [facility] CBC with Diffon 04-14-2024 Abs. Basophil <0.03 Normal 0.00-0.20 [facility] Comment on above: Performed By: #### C P, LIP, CDP #### [facility] [address] [place] [address] [place] [address] [employer] Operator: Lakhwinder Tim MD Abs.Imm.Granulocyte <0.03 Normal 0.00-0.30 [facility] Comment on above: Performed By: #### C P, LIP, CDP #### [facility] [address] [place] [address] [employer] Operator: Lakhwinder Tim MD Abs.Neutrophil (Seg) 2.22 k/uL Normal 1.50-8.10 [facility] Comment on above: Performed By: #### C P, LIP, CDP #### [facility] [address] [place] [address] [place] [address] [employer] Operator: Lakhwinder Tim MD Basophils/100 WBC (Bld) 0 % Normal 0-2 [facility] Comment on above: Performed By: #### C P, LIP, CDP #### [address] [place], [place] [address] [employer] Operator: Lakhwinder Tim MD Eosinophils (Bld) [#/Vol] 0.28 10*3/uL Normal 0.00-0.44 [facility] Comment on above: Performed By: #### C P, LIP, CDP #### [address] [place], [place] [address] [employer] Operator: Lakhwinder Tim MD Eosinophils/100 WBC (Bld) 6 % High 1-4 [facility] Comment on above: Performed By: #### C P, LIP, CDP #### [address] [place], [place] [address] [employer] Operator: Lakhwinder Tim MD Erythrocyte distribution width (RBC) [Ratio] 13.2 % Normal 11.8-14.4 [facility] Comment on above: Performed By: #### C P, LIP, CDP #### [address] [place], [facility]83 [employer] Operator: Lakhwinder Tim MD Hematocrit (Bld) [Volume fraction] 27.5 % Low 36.3-47.1 [facility] Comment on above: Performed By: #### C P, LIP, CDP #### [address] [place], [place] [address] [employer] Operator: Lakhwinder Tim MD Hemoglobin (Bld) [Mass/Vol] 8.8 g/dL Low 11.9-15.1 [facility] Comment on above: Performed By: #### C P, LIP, CDP #### [address] [place], [facility]83 [employer] Operator: Lakhwinder Tim MD Immature granulocytes/100 WBC (Bld) 0 % Normal 0 [facility] Comment on above: Performed By: #### C P, LIP, CDP #### [facility] [address] [place], [facility]83 [employer] Operator: Lakhwinder Tim MD Lymphocytes (Bld) [#/Vol] 1.62 10*3/uL Normal 1.10-3.70 [facility] Comment on above: Performed By: #### C P, LIP, CDP #### [address] [place], [place] [address] [employer] Operator: Lakhwinder Tim MD Lymphocytes/100 WBC (Bld) 35 % Normal 24-43 [facility] Comment on above: Performed By: #### C P, LIP, CDP #### [address] [place], [place] [address] [employer] Operator: Lakhwinder Tim MD MCH (RBC) [Entitic mass] 28.2 pg Normal 25.2-33.5 [facility] Comment on above: Performed By: #### C P, LIP, CDP #### [address] [place], [facility]83 [employer] Operator: Lakhwinder Tim MD MCHC (RBC) [Mass/Vol] 32.0 g/dL Normal 28.4-34.8 [facility] Comment on above: Performed By: #### C P, LIP, CDP #### [address] [place], [place] [address] [employer] Operator: Lakhwinder Tim MD MCV (RBC) [Entitic vol] 88.1 fL Normal 82.6-102.9 [facility] Comment on above: Performed By: #### C P, LIP, CDP #### [address] [place] [id number] [employer] Operator: Lakhwinder Tim MD Monocytes (Bld) [#/Vol] 0.47 10*3/uL Normal 0.10-1.20 [facility] Comment on above: Performed By: #### C P, LIP, CDP #### [facility] [address] [place], [place] [phone] [employer] Operator: Lakhwinder Tim MD Monocytes/100 WBC (Bld) 10 % Normal 3-12 [facility] Comment on above: Performed By: #### C P, LIP, CDP #### [facility] [address] [place], [place] [id number] [employer] Operator: Lakhwinder Tim MD Neutrophil (Seg) 49 % Normal 36-65 [facility] Comment on above: Performed By: #### C P, LIP, CDP #### [facility] [address] [place], [place] [address] [employer] Operator: Lakhwinder Tim MD NRBC Automated 0.0 per 100 WBC Normal 0.0 [facility] Comment on above: Performed By: #### C P, LIP, CDP #### [facility] [address] [place], [facility]83 [employer] Operator: Lakhwinder Tim MD Platelet mean volume (Bld) [Entitic vol] 10.3 fL Normal 8.1-13.5 [facility] Comment on above: Performed By: #### C P, LIP, CDP #### [address] [place], [facility]83 [employer] Operator: Lakhwinder Tim MD Platelets (Bld) [#/Vol] 183 10*3/uL Normal 138-453 [facility] Comment on above: Performed By: #### C P, LIP, CDP #### [facility] [address] [place], [place] [address]83 [employer] Operator: Lakhwinder Tim MD RBC (Bld) [#/Vol] 3.12 10*6/uL Low 3.95-5.11 [facility] Comment on above: Performed By: #### C P, LIP, CDP #### [facility] [address] [place], [facility]83 [employer] Operator: Lakhwinder Tim MD WBC (Bld) [#/Vol] 4.6 10*3/uL Normal 3.5-11.3 [facility] Comment on above: Performed By: #### C P, LIP, CDP #### [facility] [address] [place], [place] [id number] [employer] Operator: Lakhwinder Tim MD Comp Metabolic Pr/rfx MGon 1 0- Albumin [Mass/Vol] 3.1 g/dL Low 3.5-5.2 [facility] Comment on above: Performed By: #### C P, LIP, CDP #### [facility] [address] [place], [place] [address]83 [employer] Operator: Lakhwinder Tim MD Albumin/Glob Ratio 1.1 Normal 1.0-2.5 [facility] Comment on above: Performed By: #### C P, LIP, CDP #### [facility] [address] [place] [address] [place], [place] [phone] [employer] Operator: Lakhwinder Tim MD Alkaline Phos 62 U/L Normal 35-104 [facility] Comment on above: Performed By: #### C P, LIP, CDP #### [address] [place], [place] [address]183 [employer] Operator: Lakhwinder Tim MD ALT [Catalytic activity/Vol] 11 U/L Normal 10-35 [facility] Comment on above: Performed By: #### C P, LIP, CDP #### [facility] [address] [place], [place] [address]83 [employer] Operator: Lakhwinder Tim MD Anion gap [Moles/Vol] 8 mmol/L Low 9-16 [facility] Comment on above: Performed By: #### C P, LIP, CDP #### [facility] [address] [place], [place] [address]83 [employer] Operator: Lakhwnider Tim MD AST [Catalytic activity/Vol] 12 U/L Normal 10-35 [facility] Comment on above: Performed By: #### C P, LIP, CDP #### [facility] [address] [place], [place] [phone] [employer] Operator: Lakhwinder Tim MD Bilirubin [Mass/Vol] 0.3 mg/dL Normal 0.00-1.20 [facility] Comment on above: Performed By: #### C P, LIP, CDP #### [facility] [address] [place], [place] [address]83 [employer] Operator: Lakhwinder Tim MD BUN/CRE Ratio 10 Normal 9-20 [facility] Comment on above: Performed By: #### C P, LIP, CDP #### [facility] [address] [place], [place] 8244483 [employer] Operator: Lakhwinder Tim MD Calcium [Mass/Vol] 8.4 mg/dL Low 8.6-10.4 [facility] Comment on above: Performed By: #### C P, LIP, CDP #### [facility] [address] [place], [place] [phone] [employer] Operator: Lakhwinder Tim MD Chloride [Moles/Vol] 104 mmol/L Normal 98-107 [facility] Comment on above: Performed By: #### C P, LIP, CDP #### [facility] [address] [place], [place] [phone] [employer] Operator: Lakhwinder Tim MD CO2 [Moles/Vol] 27 mmol/L Normal 20-31 [facility] Comment on above: Performed By: #### C P, LIP, CDP #### [facility] [address] [place], [place] [address]45[address]83 [employer] Operator: Lakhwinder Tim MD Creatinine [Mass/Vol] 0.4 mg/dL Low 0.50-0.90 [facility] Comment on above: Performed By: #### C P, LIP, CDP #### [facility] [address] [place] [address] [employer] Up Operator: Lakhwinder Tim MD GFR/1.73 sq M.predicted among non-blacks MDRD (S/P/Bld) [Vol rate/Area] mL/min/{1.73_m2} Normal >60 [facility] Comment on above: Result Comment: These results [...] renal tubular secretion. Performed By: #### C P LIP, CDP #### [address] [place] [address] [employer] Operator: Lakhwinder Tim MD Glucose [Mass/Vol] 93 mg/dL Normal 74-99 [facility] Comment on above: Performed By: #### C P LIP, CDP #### [address] [place] [address] [employer] Up Operator: Lakhwinder Tim MD Potassium [Moles/Vol] 3.4 mmol/L Low 3.7-5.3 [facility] Comment on above: Performed By: #### C P LIP, CDP #### [address] [place], [place] [phone] [employer] Up Operator: Lakhwinder Tim MD Protein [Mass/Vol] 5.9 g/dL Low 6.6-8.7 [facility] Comment on above: Performed By: #### C P, LIP, CDP #### [address] [place] [address] [employer] Up Operator: Lakhwinder Tim MD Sodium [Moles/Vol] 139 mmol/L Normal 136-145 [facility] Comment on above: Performed By: #### C P, LIP, CDP #### [facility] [address] [place] [address] [employer] Up Operator: Lakhwinder Tim MD Urea nitrogen [Mass/Vol] 4 mg/dL Low 6-20 [facility] Comment on above: Performed By: #### C P, TOM, CDP #### [facility] [address] [place] [address] [employer] Operator: Lakhwinder Tim MD Comprehensive Metabolic Pane l w/ Reflex to MGon 04-14-2024 Albumin [Mass/Vol] 3.1 g/dL Low 3.5 - 5.2 g/dL [facility] Albumin/Globulin [Mass ratio] 1.1 {ratio} 1.0 - 2.5 [facility] ALP [Catalytic activity/Vol] 62 U/L 35 - 104 U/L [facility] ALT [Catalytic activity/Vol] 11 U/L 10 - 35 U/L [facility] Anion gap [Moles/Vol] 8 mmol/L Low 9 - 16 mmol/L [facility] AST [Catalytic activity/Vol] 12 U/L 10 - 35 U/L [facility] Bilirubin [Mass/Vol] 0.3 mg/dL 0.00 - 1.20 mg/dL [facility] Calcium [Mass/Vol] 8.4 mg/dL Low 8.6 - 10. 4 mg/dL [facility] Chloride [Moles/Vol] 104 mmol/L 98 - 10 7 mmol/L [facility] CO2 [Moles/Vol] 27 mmol/L 20 - 31 mmol/L [facility] Creatinine [Mass/Vol] 0.4 mg/dL Low 0.50 - 0.90 mg/dL [facility] Est, Glom Filt Rate - PINF [facility] Comment on above: These results are not [...] 93 mg/dL 74 - 99 mg/dL [facility] Interpretation and review of laboratory results Abnormal [facility] Potassium [Moles/Vol] 3.4 mmol/L Low 3.7 - 5.3 mmol/L [facility] Protein [Mass/Vol] 5.9 g/dL Low 6.6 - 8.7 g/dL [facility] Sodium [Moles/Vol] 139 mmol/L 136 - 145 mmol/L [facility] Urea nitrogen [Mass/Vol] 4 mg/dL Low 6 - 20 mg/dL [facility] Urea nitrogen/Creatinine [Mass ratio] 10 mg/mg 9 - 20 [facility] Magnesiumon 04-14-2024 Magnesium [Mass/Vol] 1.7 mg/dL 1.6 - 2 .6 mg/dL [facility] Magnesium [Mass/Vol] 1.7 mg/dL Normal 1.6-2.6 [facility] Comment on above: Performed By: #### C P, LIP, CDP #### [facility] [address] [place] [address] [employer] Operator: Lakhiwnder Tim MD XR ABDOMEN (KUB) (SINGLE AP [...] Olsen IV, MD 04/14/24 Final result Normal [facility] XR Abdomen Single viewon Nonspecific, nonobstructed bowel gas pattern. [facility] CONSOLIDATED EXAMINATION: ONE SUPINE XRAY VIEW(S) OF THE ABDOMEN 04/14/2024 5:23 pm COMPARISON: 04/13/2024 radiograph HISTORY: ORDERING SYSTEM PROVIDED HISTORY: Abd pain TECHNOLOGIST PROVIDED HISTORY: Abd pain FINDINGS: Limited visualization of the abdomen in field of view of this portable study. Nonspecific, nonobstructed bowel gas pattern. No abnormal soft tissue mass or calcification. No significant skeletal finding. [facility] CON[facility]ID[facility] Asim Olsen IV, MD - 04/14/2024 [...] IMPRESSION: Nonspecific, nonobstructed bowel gas pattern. [facility] Radiology Study observation (narrative) [facility] XR Abdomen Single viewOrdere d By: Asim Olsen on 04-14-2024 [facility] Work Phone: CBC auto differentialon 03-20 Basophils (Bld) [#/Vol] [facility] Basophils/100 WBC (Bld) 0 % 0 - 2 % [facility] Eosinophils (Bld) [#/Vol] 0.10 10*3/uL [facility] [employer] Eosinophils/100 WBC (Bld) 2 % 1 - 4 % [facility] Erythrocyte distribution width (RBC) [Ratio] 13.4 % 11.8 - 14.4 % [facility] Hematocrit (Bld) [Volume fraction] 29.0 % Low 36.3 - 47.1 % [facility] Hemoglobin (Bld) [Mass/Vol] 9.3 g/dL Low 11.9 - 15.1 g/dL [facility] Immature granulocytes (Bld) [#/Vol] [facility] Immature granulocytes/100 WBC (Bld) 0 % 0 [facility] Interpretation and review of laboratory results Abnormal [facility] Lymphocytes/100 WBC (Bld) 25 % 24 - 43 % [facility] Lymphocytes/100 WBC (Bld) 1.44 % [facility] MCH (RBC) [Entitic mass] 28.2 pg 25.2 - 33.5 pg [facility] MCHC (RBC) [Mass/Vol] 32.1 g/dL 28.4 - 34.8 g/dL [facility] MCV (RBC) [Entitic vol] 87.9 fL 82.6 - 102.9 fL [facility] Monocytes/100 WBC (Bld) 11 % 3 - 12 % [facility] Monocytes/100 WBC (Bld) 0.64 % [facility] Neutrophils/100 WBC (Bld) 62 % 36 - 65 % [facility] Nucleated RBC/100 WBC (Bld) [Ratio] 0.0 % 0.0 per 100 WBC [facility] Platelet mean volume (Bld) [Entitic vol] 10.5 fL 8.1 - 13.5 fL [facility] Platelets (Bld) [#/Vol] 159 10*3/uL [facility] RBC (Bld) [#/Vol] 3.30 10*6/uL Low 3.95 - 5.1 1 m/uL [facility] Segmented neutrophils/100 WBC (Bld) 3.49 % [facility] WBC other (Bld) [#/Vol] 5.7 [facility] CBC with Diffon 04-13-2024 Abs. Basophil <0.03 Normal 0.00-0.20 [facility] Comment on above: Performed By: #### C P, LIP, CDP #### [facility] [address] [place] [address] [employer] Up Operator: Lakhwinder Tim MD Abs.Imm.Granulocyte <0.03 Normal 0.00-0.30 [facility] Comment on above: Performed By: #### C P, LIP, CDP #### [facility] [address] [place] [address] [employer] Up Operator: Lakhwinder Tim MD Abs.Neutrophil (Seg) 3.49 k/uL Normal 1.50-8.10 [facility] Comment on above: Performed By: #### C P, LIP, CDP #### [address] [place], [facility]83 [employer] Operator: Lakhwinder Tim MD Basophils/100 WBC (Bld) 0 % Normal 0-2 [facility] Comment on above: Performed By: #### C P, LIP, CDP #### [address] [place], [place] [address] [employer] Operator: Lakhwinder Tim MD Eosinophils (Bld) [#/Vol] 0.10 10*3/uL Normal 0.00-0.44 [facility] Comment on above: Performed By: #### C P, LIP, CDP #### [address] [place], [place] [address] [employer] Operator: Lakhwinder Tim MD Eosinophils/100 WBC (Bld) 2 % Normal 1-4 [facility] Comment on above: Performed By: #### C P, LIP, CDP #### [address] [place], [place] [address] [employer] Operator: Lakhwinder Tim MD Erythrocyte distribution width (RBC) [Ratio] 13.4 % Normal 11.8-14.4 [facility] Comment on above: Performed By: #### C P, LIP, CDP #### [address] [place], [place] [address] [employer] Operator: Lakhwinder Tim MD Hematocrit (Bld) [Volume fraction] 29.0 % Low 36.3-47.1 [facility] Comment on above: Performed By: #### C P, LIP, CDP #### [address] [place], [facility]83 [employer] Operator: Lakhwinder Tim MD Hemoglobin (Bld) [Mass/Vol] 9.3 g/dL Low 11.9-15.1 [facility] Comment on above: Performed By: #### C P, LIP, CDP #### [facility] [address] [place], [place] [phone] [employer] Up Operator: Lakhwinder Tim MD Immature granulocytes/100 WBC (Bld) 0 % Normal 0 [facility] Comment on above: Performed By: #### C P, LIP, CDP #### [address] [place] [address] [employer] Up Operator: Lakhwinder Tim MD Lymphocytes (Bld) [#/Vol] 1.44 10*3/uL Normal 1.10-3.70 [facility] Comment on above: Performed By: #### C P, LIP, CDP #### [address] [place], [facility]83 [employer] Operator: Lakhwinder Tim MD Lymphocytes/100 WBC (Bld) 25 % Normal 24-43 [facility] Comment on above: Performed By: #### C P, LIP, CDP #### [address] [place], [place] [phone] [employer] Operator: Lakhwinder Tim MD MCH (RBC) [Entitic mass] 28.2 pg Normal 25.2-33.5 [facility] Comment on above: Performed By: #### C P, LIP, CDP #### [address] [place], [place] [phone] [employer] Operator: Lakhwinder Tim MD MCHC (RBC) [Mass/Vol] 32.1 g/dL Normal 28.4-34.8 [facility] Comment on above: Performed By: #### C P, LIP, CDP #### [address] [place], [place] [phone] [employer] Generator Set Up Operator: Lakhwinder Tim MD MCV (RBC) [Entitic vol] 87.9 fL Normal 82.6-102.9 [facility] Comment on above: Performed By: #### C P, LIP, CDP #### [facility] [address] [place], [place] [address] [employer] Generator Set Up Operator: Lakhwinder Tim MD Monocytes (Bld) [#/Vol] 0.64 10*3/uL Normal 0.10-1.20 [facility] Comment on above: Performed By: #### C P, LIP, CDP #### [facility] [address] [place], [facility]83 [employer] Generator Set Up Operator: Lakhwinder Tim MD Monocytes/100 WBC (Bld) 11 % Normal 3-12 [facility] Comment on above: Performed By: #### C P, LIP, CDP #### [address] [place], [facility]83 [employer] Generator Set Up Operator: Lakhwinder Tim MD Neutrophil (Seg) 62 % Normal 36-65 [facility] Comment on above: Performed By: #### C P, LIP, CDP #### [address] [place], [facility]83 [employer] Generator Set Up Operator: Lakhwinder Tim MD NRBC Automated 0.0 per 100 WBC Normal 0.0 [facility] Comment on above: Performed By: #### C P, LIP, CDP #### [address] [place], [place] [address] [employer] Generator Set Up Operator: Lakhwinder Tim MD Platelet mean volume (Bld) [Entitic vol] 10.5 fL Normal 8.1-13.5 [facility] Comment on above: Performed By: #### C P, LIP, CDP #### [address] [place] [address] [employer] Generator Set Up Operator: Lakhwinder Tim MD Platelets (Bld) [#/Vol] 159 10*3/uL Normal 138-453 [facility] Comment on above: Performed By: #### C P, LIP, CDP #### [facility] [address] [place], [place] [id number] [employer] Gener[employer] Set Up Operator: Lakhwinder Tim MD RBC (Bld) [#/Vol] 3.30 10*6/uL Low 3.95-5.11 [facility] Comment on above: Performed By: #### C P, LIP, CDP #### [facility] [address] [place], [place] [id number] [employer] Generator Set Up Operator: Lakhwinder Tim MD WBC (Bld) [#/Vol] 5.7 10*3/uL Normal 3.5-11.3 [facility] Comment on above: Performed By: #### C P, LIP, CDP #### [facility] [address] [place], [place] [id number] [employer] Generator Set Up Operator: Lakhwinder Tim MD Comp Metabolic Pr/rfx MGon 1 - Albumin [Mass/Vol] 3.2 g/dL Low 3.5-5.2 [facility] Comment on above: Performed By: #### C P, LIP, CDP #### [facility] [address] [place], [place] 6603283 [employer] Generator Set Up Operator: Lakhwinder Tim MD Albumin/Glob Ratio 1.2 Normal 1.0-2.5 [facility] Comment on above: Performed By: #### C P, LIP, CDP #### [facility] [address] [place], [place] [id number] [employer] Generator Set Up Operator: Lakhwinder Tim MD Alkaline Phos 46 U/L Normal 35-104 [facility] Comment on above: Performed By: #### C P, LIP, CDP #### [facility] [address] [place], [place] [id number] [employer] Generator Set Up Operator: Lakhwinder Tim MD ALT [Catalytic activity/Vol] 9 U/L Low 10-35 [facility] Comment on above: Performed By: #### C P, LIP, CDP #### [facility] [address] [place], [place] [id number] [employer] Generator Set Up Operator: Lakhwinder Tim MD Anion gap [Moles/Vol] 9 mmol/L Normal 9-16 [facility] Comment on above: Performed By: #### C P, LIP, CDP #### [facility] [address] [place], [place] 1158583 [employer] Generator Set Up Operator: Lakhwinder Tim MD AST [Catalytic activity/Vol] 11 U/L Normal 10-35 [facility] Comment on above: Performed By: #### C P, LIP, CDP #### [facility] [address] [place], [place] [phone] Gear Generator Set Up Operator: Lakhwinder Tim MD Bilirubin [Mass/Vol] 0.4 mg/dL Normal 0.00-1.20 [facility] Comment on above: Performed By: #### C P, LIP, CDP #### [facility] [address] [place], [place] 6592783 [employer] Generator Set Up Operator: Lakhwinder Tim MD BUN/CRE Ratio 15 Normal 9-20 [facility] Comment on above: Performed By: #### C P, LIP, CDP #### [facility] [address] [place], [place] 9382583 [employer] Generator Set Up Operator: Lakhwinder Tim MD Calcium [Mass/Vol] 8.4 mg/dL Low 8.6-10.4 [facility] Comment on above: Performed By: #### C P, LIP, CDP #### [facility] [address] [place], [place] 1029283 [employer] Generator Set Up Operator: Lakhwinder Tim MD Chloride [Moles/Vol] 104 mmol/L Normal 98-107 [facility] Comment on above: Performed By: #### C P, LIP, CDP #### [facility] [address] [place] [address] Gear Generator Set Up Operator: Lakhwinder Tim MD CO2 [Moles/Vol] 26 mmol/L Normal 20-31 [facility] Comment on above: Performed By: #### C P, LIP, CDP #### [facility] [address] [place] [address] Gear Generator Set Up Operator: Lakhwinder Tim MD Creatinine [Mass/Vol] 0.4 mg/dL Low 0.50-0.90 [facility] Comment on above: Performed By: #### C P, LIP, CDP #### [facility] [address] [place] [address] [employer] Generator Set Up Operator: Lakhwinder Tim MD GFR/1.73 sq M.predicted among non-blacks MDRD (S/P/Bld) [Vol rate/Area] mL/min/{1.73_m2} Normal >60 [facility] Comment on above: Result Comment: These results [...] By: #### C P, LIP, CDP #### [facility] [address] [place] [address] Gear Generator Set Up Operator: Lakhwinder Tim MD Glucose [Mass/Vol] 95 mg/dL Normal 74-99 [facility] Comment on above: Performed By: #### C P, LIP, CDP #### [facility] [address] [place] [address] Gear Generator Set Up Operator: Lakhwinder Tim MD Potassium [Moles/Vol] 3.3 mmol/L Low 3.7-5.3 [facility] Comment on above: Performed By: #### C P, LIP, CDP #### [facility] [address] [place] [address] Gear Generator Set Up Operator: Lakhwinder Tim MD Protein [Mass/Vol] 5.9 g/dL Low 6.6-8.7 [facility] Comment on above: Performed By: #### C PTOM, CDP #### [facility] [address] [place] [address] Gear Generator Set Up Operator: Lakhwinder Tim MD Sodium [Moles/Vol] 139 mmol/L Normal 136-145 [facility] Comment on above: Performed By: #### C TOM Mckeon, CDP #### [facility] [address] [place] [address] Gear Generator Set Up Operator: Lakhwidner Tim MD Urea nitrogen [Mass/Vol] 6 mg/dL Normal 6-20 [facility] Comment on above: Performed By: #### C TOM Mckeon, CDP #### [facility] [address] [place] [address] Gear Generator Set Up Operator: Lakhwinder Tim MD Comprehensive Metabolic Pane l w/ Reflex to MGon 04-13-2024 Albumin [Mass/Vol] 3.2 g/dL Low 3.5 - 5.2 g/dL [facility] Albumin/Globulin [Mass ratio] 1.2 {ratio} 1.0 - 2.5 [facility] ALP [Catalytic activity/Vol] 46 U/L 35 - 104 U/L [facility] ALT [Catalytic activity/Vol] 9 U/L Low 10 - 35 U/L [facility] Anion gap [Moles/Vol] 9 mmol/L 9 - 16 mmol/L [facility] AST [Catalytic activity/Vol] 11 U/L 10 - 35 U/L [facility] Bilirubin [Mass/Vol] 0.4 mg/dL 0.00 - 1.20 mg/dL [facility] Calcium [Mass/Vol] 8.4 mg/dL Low 8.6 - 10. 4 mg/dL [facility] Chloride [Moles/Vol] 104 mmol/L 98 - 10 7 mmol/L [facility] CO2 [Moles/Vol] 26 mmol/L 20 - 31 mmol/L [facility] Creatinine [Mass/Vol] 0.4 mg/dL Low 0.50 - 0.90 mg/dL [facility] [employer] Rate - [facility] Comment on above: These results are not [...] 95 mg/dL 74 - 99 mg/dL [facility] Interpretation and review of laboratory results Abnormal [facility] Potassium [Moles/Vol] 3.3 mmol/L Low 3.7 - 5.3 mmol/L [facility] Protein [Mass/Vol] 5.9 g/dL Low 6.6 - 8.7 g/dL [facility] Sodium [Moles/Vol] 139 mmol/L 136 - 145 mmol/L [facility] Urea nitrogen [Mass/Vol] 6 mg/dL 6 - 20 mg/dL [facility] Urea nitrogen/Creatinine [Mass ratio] 15 mg/mg 9 - 20 [facility] Magnesiumon 04-13-2024 Magnesium [Mass/Vol] 1.6 mg/dL 1.6 - 2 .6 mg/dL [facility] Magnesium [Mass/Vol] 1.6 mg/dL Normal 1.6-2.6 [facility] Comment on above: Performed By: #### C P, LIP, CDP #### [facility] [address] [place] [address] [employer] Generator Set Up Operator: Lakhwinder Tim MD XR ABDOMEN (KUB) (SINGLE AP VIEW)on 04-13-2024 XR ABDOMEN (KUB) (SINGLE AP VIEW) EXAMINATION: ONE SUPINE XRAY VIEW(S) OF THE ABDOMEN 04/13/2024 7:21 am COMPARISON: Anesthesia Attending film of a CT abdomen of 10 [...] Maeve Price MD 04/13/24 Final result Normal [facility] XR Abdomen Single viewon 1. Nonobstructive uriel wel gas pattern. 2. Mildly increased colonic gas likely related to minimal ileus. [facility] RIS CONSOLIDATED EXAMINATION: ONE SUPINE XRAY VIEW(S) OF THE ABDOMEN 04/13/2024 7:21 am COMPARISON: Anesthesia Attending film of a CT abdomen of 10 April 2024 HISTORY: ORDERING SYSTEM PROVIDED HISTORY: Abd pain TECHNOLOGIST PROVIDED HISTORY: Abd pain FINDINGS: Midline skin clips are noted, new since prior study. The bowel gas pattern is nonobstructive. No free air is noted. Mildly increased colonic gas is noted likely related to minimal ileus. Lung bases are clear. [facility] RIS CONSOLIDATED Maeve Price MD - 04/13/2024 EXAMINATION: ONE SUPINE XRAY VIEW(S) OF THE ABDOMEN 04/13/2024 7:21 am COMPARISON: Anesthesia Attending film of a CT abdomen of 10 [...] gas likely related to minimal ileus. [facility] Radiology Study observation (narrative) [facility] XR Abdomen Single viewOrdere d By: Maeve Price on 04-13-2024 [facility] Work Phone: CBC auto differentialon 03-20 Basophils (Bld) [#/Vol] [facility] Basophils/100 WBC (Bld) 0 % 0 - 2 % [facility] Eosinophils (Bld) [#/Vol] [facility] Eosinophils/100 WBC (Bld) 0 % Low 1 - 4 % [facility] Erythrocyte distribution width (RBC) [Ratio] 13.4 % 11.8 - 14.4 % [facility] Hematocrit (Bld) [Volume fraction] 28.0 % Low 36.3 - 47.1 % [facility] Hemoglobin (Bld) [Mass/Vol] 8.9 g/dL Low 11.9 - 15.1 g/dL [facility] Immature granulocytes (Bld) [#/Vol] [facility] Immature granulocytes/100 WBC (Bld) 0 % 0 [facility] Interpretation and review of laboratory results Abnormal [facility] Lymphocytes/100 WBC (Bld) 33 % 24 - 43 % [facility] Lymphocytes/100 WBC (Bld) 2.08 % [facility] MCH (RBC) [Entitic mass] 28.1 pg 25.2 - 33.5 pg [facility] MCHC (RBC) [Mass/Vol] 31.8 g/dL 28.4 - 34.8 g/dL [facility] MCV (RBC) [Entitic vol] 88.3 fL 82.6 - 102.9 fL [facility] Monocytes/100 WBC (Bld) 9 % 3 - 12 % [facility] Monocytes/100 WBC (Bld) 0.55 % [facility] Neutrophils/100 WBC (Bld) 58 % 36 - 65 % [facility] Nucleated RBC/100 WBC (Bld) [Ratio] 0.0 % 0.0 per 100 WBC [facility] Platelet mean volume (Bld) [Entitic vol] 10.7 fL 8.1 - 13.5 fL [facility] Platelets (Bld) [#/Vol] 139 10*3/uL [facility] RBC (Bld) [#/Vol] 3.17 10*6/uL Low 3.95 - 5.1 1 m/uL [facility] Segmented neutrophils/100 WBC (Bld) 3.71 % [facility] WBC other (Bld) [#/Vol] 6.4 [facility] CBC with Diffon 04-12-2024 Abs. Basophil <0.03 Normal 0.00-0.20 [facility] Comment on above: Performed By: #### C DP #### [facility] [address] [place], [place] [phone] [employer] Generator Set Up Operator: Lakhwinder Tim MD Abs. Eosinophil <0.03 Normal 0.00-0.44 [facility] Comment on above: Performed By: #### C DP #### [facility] [address] [place] [address] Gear Generator Set Up Operator: Lakhwinder Tim MD Abs.Imm.Granulocyte <0.03 Normal 0.00-0.30 [facility] Comment on above: Performed By: #### C DP #### [facility] [address] [place], [place] [address]83 [employer] Generator Set Up Operator: Lakhwinder Tim MD Abs.Neutrophil (Seg) 3.71 k/uL Normal 1.50-8.10 [facility] Comment on above: Performed By: #### C DP #### [facility] [address] [place] [address] Gear Generator Set Up Operator: Lakhwinder Tim MD Basophils/100 WBC (Bld) 0 % Normal 0-2 [facility] Comment on above: Performed By: #### C DP #### [facility] [address] [place], [place] 6[address]83 [employer] Generator Set Up Operator: Lakhwinder Tim MD Eosinophils/100 WBC (Bld) 0 % Low 1-4 [facility] Comment on above: Performed By: #### C DP #### [facility] [address] [place], [place] 295[address]83 [employer] Generator Set Up Operator: Lakhwinder Tim MD Erythrocyte distribution width (RBC) [Ratio] 13.4 % Normal 11.8-14.4 [facility] Comment on above: Performed By: #### C DP #### [facility] [address] [place] [address] Gear Generator Set Up Operator: Lakhwinder Tim MD Hematocrit (Bld) [Volume fraction] 28.0 % Low 36.3-47.1 [facility] Comment on above: Performed By: #### C DP #### [facility] [address] [place], [facility]83 Gear Generator Set Up Operator: Lakhwinder Tim MD Hemoglobin (Bld) [Mass/Vol] 8.9 g/dL Low 11.9-15.1 [facility] Comment on above: Performed By: #### C DP #### [address] [place] [address] Gear Generator Set Up Operator: Lakhwinder Tim MD Immature granulocytes/100 WBC (Bld) 0 % Normal 0 [facility] Comment on above: Performed By: #### C DP #### [facility] [address] [place] [address] [place] [place], [facility]83 Gear Generator Set Up Operator: Lakhwinder Tim MD Lymphocytes (Bld) [#/Vol] 2.08 10*3/uL Normal 1.10-3.70 [facility] Comment on above: Performed By: #### C DP #### [address] [place] [address] Gear Generator Set Up Operator: Lakhwinder Tim MD Lymphocytes/100 WBC (Bld) 33 % Normal 24-43 [facility] Comment on above: Performed By: #### C DP #### [facility] [address] [place] [address] Gear Generator Set Up Operator: Lakhwinder Tim MD MCH (RBC) [Entitic mass] 28.1 pg Normal 25.2-33.5 [facility] Comment on above: Performed By: #### C DP #### [facility] [address] [place] [address] [place] [address] Gear Generator Set Up Operator: Lakhwinder Tim MD MCHC (RBC) [Mass/Vol] 31.8 g/dL Normal 28.4-34.8 [facility] Comment on above: Performed By: #### C DP #### [facility] [address] [place] [address] Gear Generator Set Up Operator: Lakhwinder Tim MD MCV (RBC) [Entitic vol] 88.3 fL Normal 82.6-102.9 [facility] Comment on above: Performed By: #### C DP #### [facility] [address] [place], [place] [address] [employer] Generator Set Up Operator: Lakhwinder Tim MD Monocytes (Bld) [#/Vol] 0.55 10*3/uL Normal 0.10-1.20 [facility] Comment on above: Performed By: #### C DP #### [facility] [address] [place], [place] [address]83 [employer] Generator Set Up Operator: Lakhwinder Tim MD Monocytes/100 WBC (Bld) 9 % Normal 3-12 [facility] Comment on above: Performed By: #### C DP #### [facility] [address] [place], [place] [phone] [employer] Generator Set Up Operator: Lakhwinder Tim MD Neutrophil (Seg) 58 % Normal 36-65 [facility] Comment on above: Performed By: #### C DP #### [facility] [address] [place], [place] 1747483 [employer] Generator Set Up Operator: Lakhwinder Tim MD NRBC Automated 0.0 per 100 WBC Normal 0.0 [facility] Comment on above: Performed By: #### C DP #### [facility] [address] [place], [place] 1782783 [employer] Generator Set Up Operator: Lakhwinder Tim MD Platelet mean volume (Bld) [Entitic vol] 10.7 fL Normal 8.1-13.5 [facility] Comment on above: Performed By: #### C DP #### [facility] [address] [place], [place] [address]84[address]83 [employer] Generator Set Up Operator: Lakhwinder Tim MD Platelets (Bld) [#/Vol] 139 10*3/uL Normal 138-453 [facility] Comment on above: Performed By: #### C DP #### [facility] [address] [place] [phone] Gear Generator Set Up Operator: Lakhwinder Tim MD RBC (Bld) [#/Vol] 3.17 10*6/uL Low 3.95-5.11 [facility] Comment on above: Performed By: #### C DP #### [facility] [address] [place], [place] [phone] Gear Generator Set Up Operator: Lakhwinder Tim MD WBC (Bld) [#/Vol] 6.4 10*3/uL Normal 3.5-11.3 [facility] Comment on above: Performed By: #### C DP #### [address] [place], [place] 647[address]83 [employer] Generator Set Up Operator: Lakhwinder Tim MD Comp Metabolic Pr/rfx MGon 1 0- Albumin [Mass/Vol] 3.1 g/dL Low 3.5-5.2 [facility] Comment on above: Performed By: #### C DP #### [facility] [address] [place] [address] [place] [place], [place] [phone] [employer] Generator Set Up Operator: Lakhwinder Tim MD Albumin/Glob Ratio 1.2 Normal 1.0-2.5 [facility] Comment on above: Performed By: #### C DP #### [facility] [address] [place] [address] Gear Generator Set Up Operator: Lakhwinder Tim MD Alkaline Phos 41 U/L Normal 35-104 [facility] Comment on above: Performed By: #### C DP #### [facility] [address] [place] [address] Gear Generator Set Up Operator: Lakhwinder Tim MD ALT [Catalytic activity/Vol] 11 U/L Normal 10-35 [facility] Comment on above: Performed By: #### C DP #### [facility] [address] [place], [place] 2059183 [employer] Generator Set Up Operator: Lakhwinder Tim MD Anion gap [Moles/Vol] 9 mmol/L Normal 9-16 [facility] Comment on above: Performed By: #### C DP #### [facility] [address] [place], [place] 32[address]83 [employer] Generator Set Up Operator: Lakhwinder Tim MD AST [Catalytic activity/Vol] 9 U/L Low 10-35 [facility] Comment on above: Performed By: #### C DP #### [facility] [address] [place], [place] 49[address]83 [employer] Generator Set Up Operator: Lakhwinder Tim MD Bilirubin [Mass/Vol] 0.3 mg/dL Normal 0.00-1.20 [facility] Comment on above: Performed By: #### C DP #### [facility] [address] [place], [place] 2453683 [employer] Generator Set Up Operator: Lakhwinder Tim MD BUN/CRE Ratio 24 High 9-20 [facility] Comment on above: Performed By: #### C DP #### [facility] [address] [place], [place] 2427383 Gear Generator Set Up Operator: Lakhwinder Tim MD Calcium [Mass/Vol] 8.2 mg/dL Low 8.6-10.4 [facility] Comment on above: Performed By: #### C DP #### [facility] [address] [place] [address] Gear Generator Set Up Operator: Lakhwinder Tim MD Chloride [Moles/Vol] 106 mmol/L Normal 98-107 [facility] Comment on above: Performed By: #### C DP #### [facility] [address] [place] [address] [employer] Generator Set Up Operator: Lakhwinder Tim MD CO2 [Moles/Vol] 24 mmol/L Normal 20-31 [facility] Comment on above: Performed By: #### C DP #### [facility] [address] [place] 585[address]83 [employer] Generator Set Up Operator: Lakhwinder Tim MD Creatinine [Mass/Vol] 0.5 mg/dL Normal 0.50-0.90 [facility] Comment on above: Performed By: #### C DP #### [facility] [address] [place] [address] [employer] Generator Set Up Operator: Lakhwinder Tim MD GFR/1.73 sq M.predicted among non-blacks MDRD (S/P/Bld) [Vol rate/Area] mL/min/{1.73_m2} Normal >60 [facility] Comment on above: Result Comment: These results [...] secretion. Performed By: #### C DP #### [facility] [address] [place] [address] [employer] Generator Set Up Operator: Lakhwinder Tim MD Glucose [Mass/Vol] 83 mg/dL Normal 74-99 [facility] Comment on above: Performed By: #### C DP #### [facility] [address] [place] [address] [employer] Generator Set Up Operator: Lakhwinder Tim MD Potassium [Moles/Vol] 3.3 mmol/L Low 3.7-5.3 [facility] Comment on above: Performed By: #### C DP #### [facility] [address] [place] [address] [employer] Generator Set Up Operator: Lakhwinder Tim MD Protein [Mass/Vol] 5.8 g/dL Low 6.6-8.7 [facility] Comment on above: Performed By: #### C DP #### [facility] [address] [place] [address] [employer] Generator Set Up Operator: Lakhwinder Tim MD Sodium [Moles/Vol] 139 mmol/L Normal 136-145 [facility] Comment on above: Performed By: #### C DP #### [facility] [address] [place] [address] [employer] Generator Set Up Operator: Lakhwinder Tim MD Urea nitrogen [Mass/Vol] 12 mg/dL Normal 6-20 [facility] Comment on above: Performed By: #### C DP #### [facility] [address] [place] [address] [employer] Generator Set Up Operator: Lakhwinder Tim MD Comprehensive Metabolic Pane l w/ Reflex to MGon 04-12-2024 Albumin [Mass/Vol] 3.1 g/dL Low 3.5 - 5.2 g/dL [facility] Albumin/Globulin [Mass ratio] 1.2 {ratio} 1.0 - 2.5 [facility] ALP [Catalytic activity/Vol] 41 U/L 35 - 104 U/L [facility] ALT [Catalytic activity/Vol] 11 U/L 10 - 35 U/L [facility] Anion gap [Moles/Vol] 9 mmol/L 9 - 16 mmol/L [facility] AST [Catalytic activity/Vol] 9 U/L Low 10 - 35 U/L [facility] Bilirubin [Mass/Vol] 0.3 mg/dL 0.00 - 1.20 mg/dL [facility] Calcium [Mass/Vol] 8.2 mg/dL Low 8.6 - 10. 4 mg/dL [facility] Chloride [Moles/Vol] 106 mmol/L 98 - 10 7 mmol/L [facility] CO2 [Moles/Vol] 24 mmol/L 20 - 31 mmol/L [facility] Creatinine [Mass/Vol] 0.5 mg/dL 0.50 - 0.90 mg/dL [facility] Est, [employer] [facility] - [facility] Comment on above: These results are not [...] 83 mg/dL 74 - 99 mg/dL [facility] Interpretation and review of laboratory results Abnormal [facility] Potassium [Moles/Vol] 3.3 mmol/L Low 3.7 - 5.3 mmol/L [facility] Protein [Mass/Vol] 5.8 g/dL Low 6.6 - 8.7 g/dL [facility] Sodium [Moles/Vol] 139 mmol/L 136 - 145 mmol/L [facility] Urea nitrogen [Mass/Vol] 12 mg/dL 6 - 20 mg/dL [facility] Urea nitrogen/Creatinine [Mass ratio] 24 mg/mg High 9 - 20 [facility] EKG Rhythm Stripon [facility] Magnesiumon 04-12-2024 Magnesium [Mass/Vol] 1.7 mg/dL 1.6 - 2 .6 mg/dL [facility] Magnesium [Mass/Vol] 1.7 mg/dL Normal 1.6-2.6 [facility] Comment on above: Performed By: #### C DP #### [facility] [address] [place] [address] [place] [address] [employer] Set Up Operator: Lakhwinder Tim MD SURGICAL PATHOLOGY REPORTon 04-12-2024 Surgical Pathology Report Path Number: [id number] -- Diagnosis -- A. APPENDIX, APPENDECTOMY: Unremarkable [...] tip and margin in 1. tm Kay Lewis/kb2:04/11/2024 Microscopic Description Microscopic examination performed. Processing Lab: [place] [id number] Interpretation Performed at [place] [id number] SURGICAL PATHOLOGY CONSULTATION Patient Name: BARBRA CLAROS [facility] Rec: [id number] [employer] [facility] ANATOMIC PATHOLOGY [address] [place] [address]. [place], [place] [id number] [facility] CBC auto differentialon 03-20 Basophils (Bld) [#/Vol] 0.00 10*3/uL [facility] Basophils/100 WBC (Bld) 0 % 0 - 2 % [facility] Eosinophils (Bld) [#/Vol] 0.00 10*3/uL [facility] Eosinophils/100 WBC (Bld) 0 % Low 1 - 4 % [facility] Erythrocyte distribution width (RBC) [Ratio] 13.7 % 11.8 - 14.4 % [facility] Hematocrit (Bld) [Volume fraction] 34.4 % Low 36.3 - 47.1 % [facility] Hemoglobin (Bld) [Mass/Vol] 11.1 g/dL Low 11.9 - 15.1 g/dL [facility] Immature granulocytes (Bld) [#/Vol] 0.00 10*3/uL [facility] Immature granulocytes/100 WBC (Bld) 0 % 0 [facility] Interpretation and review of laboratory results Abnormal [facility] Lymphocytes/100 WBC (Bld) 8 % Low 24 - 43 % [facility] Lymphocytes/100 WBC (Bld) 0.75 % Low [facility] MCH (RBC) [Entitic mass] 28.2 pg 25.2 - 33.5 pg [facility] MCHC (RBC) [Mass/Vol] 32.3 g/dL 28.4 - 34.8 g/dL [facility] MCV (RBC) [Entitic vol] 87.3 fL 82.6 - 102.9 fL [facility] Monocytes/100 WBC (Bld) 1 % Low 3 - 12 % [facility] Monocytes/100 WBC (Bld) 0.09 % Low [facility] Morphology [place] (Bld) [Interp] Platelet scan shows Normal Platelets [facility] Neutrophils/100 WBC (Bld) 91 % High 36 - 65 % [facility] Nucleated RBC/100 WBC (Bld) [Ratio] 0.0 % 0.0 per 100 WBC [facility] Platelet mean volume (Bld) [Entitic vol] 10.8 fL 8.1 - 13.5 fL [facility] Platelets (Bld) [#/Vol] 170 10*3/uL [facility] RBC (Bld) [#/Vol] 3.94 10*6/uL Low 3.95 - 5.1 1 m/uL [facility] Segmented neutrophils/100 WBC (Bld) 8.56 % High [facility] WBC other (Bld) [#/Vol] 9.4 [facility] CBC with Diffon 04-11-2024 Abs. Basophil 0.00 k/uL Normal 0.0-0.2 [facility] Comment on above: Performed By: #### C P, LIP, CDP #### [facility] [address] [place] [address] [employer] Operator: Lakhwinder Tim MD Abs.Imm.Granulocyte 0.00 k/uL Normal 0.00-0.30 [facility] Comment on above: Performed By: #### C P, LIP, CDP #### [facility] [address] [place] [address] [place] [place], [place] [id number] [employer] Operator: Lakhwinder Tim MD Abs.Neutrophil (Seg) 8.56 k/uL High 1.50-8.10 [facility] Comment on above: Performed By: #### C P, LIP, CDP #### [address] [place], [place] [phone] [employer] Operator: Lakhwinder Tim MD Basophils/100 WBC (Bld) 0 % Normal 0-2 [facility] Comment on above: Performed By: #### C P, LIP, CDP #### [address] [place], [facility]83 [employer] Operator: Lakhwinder Tim MD Eosinophils (Bld) [#/Vol] 0.00 10*3/uL Normal 0.00-0.44 [facility] Comment on above: Performed By: #### C P, LIP, CDP #### [address] [place], [place] [phone] [employer] Operator: Lakhwinder Tim MD Eosinophils/100 WBC (Bld) 0 % Low 1-4 [facility] Comment on above: Performed By: #### C P, LIP, CDP #### [facility] [address] [place] [address] [place] [address] [employer] Operator: Lakhwinder Tim MD Immature granulocytes/100 WBC (Bld) 0 % Normal 0 [facility] Comment on above: Performed By: #### C P, LIP, CDP #### [facility] [address] [place] [address] [place] [address] [employer] Operator: Lakhwinder Tim MD Lymphocytes (Bld) [#/Vol] 0.75 10*3/uL Low 1.10-3.70 [facility] Comment on above: Performed By: #### C P, LIP, CDP #### [facility] [address] [place], [place] [phone] [employer] Operator: Lakhwinder Tim MD Lymphocytes/100 WBC (Bld) 8 % Low 24-43 [facility] Comment on above: Performed By: #### C P, LIP, CDP #### [facility] [address] [place], [facility]83 [employer] Operator: Lakhwinder Tim MD Monocytes (Bld) [#/Vol] 0.09 10*3/uL Low 0.10-1.20 [facility] Comment on above: Performed By: #### C P, LIP, CDP #### [address] [place], [facility]83 [employer] Operator: Lakhwinder Tim MD Monocytes/100 WBC (Bld) 1 % Low 3-12 [facility] Comment on above: Performed By: #### C P, LIP, CDP #### [address] [place], [place] [address] [employer] Operator: Lakhwinder Tim MD Morphology [place] (Bld) [Interp] Platelet scan shows Normal Platelets Normal [facility] Comment on above: Performed By: #### C P, LIP, CDP #### [address] [place], [facility]83 [employer] Operator: Lakhwinder Tim MD Neutrophil (Seg) 91 % High 36-65 [facility] Comment on above: Performed By: #### C P, LIP, CDP #### [address] [place], [place] [phone] [employer] Operator: Lakhwinder Tim MD Erythrocyte distribution width (RBC) [Ratio] 13.7 % Normal 11.8-14.4 [facility] Comment on above: Performed By: #### C P, LIP, CDP #### [address] [place] [phone] [employer] Operator: Lakhwinder Tim MD Hematocrit (Bld) [Volume fraction] 34.4 % Low 36.3-47.1 [facility] Comment on above: Performed By: #### C P, LIP, CDP #### [address] [place] [address] [employer] Operator: Lakhwinder Tim MD Hemoglobin (Bld) [Mass/Vol] 11.1 g/dL Low 11.9-15.1 [facility] Comment on above: Performed By: #### C P, LIP, CDP #### [address] [place] [address] [employer] Operator: Lakhwinder Tim MD MCH (RBC) [Entitic mass] 28.2 pg Normal 25.2-33.5 [facility] Comment on above: Performed By: #### C P, LIP, CDP #### [address] [place] [phone] [employer] Operator: Lakhwinder Tim MD MCHC (RBC) [Mass/Vol] 32.3 g/dL Normal 28.4-34.8 [facility] Comment on above: Performed By: #### C P, LIP, CDP #### [address] [place], [place] [address] [employer] Operator: Lakhwinder Tim MD MCV (RBC) [Entitic vol] 87.3 fL Normal 82.6-102.9 [facility] Comment on above: Performed By: #### C P, LIP, CDP #### [address] [place] [phone] [employer] Operator: Lakhwinder Tim MD NRBC Automated 0.0 per 100 WBC Normal 0.0 [facility] Comment on above: Performed By: #### C P, LIP, CDP #### [place] [address] [place], [place] [phone] [employer] Operator: Lakhwinder Tim MD Platelet mean volume (Bld) [Entitic vol] 10.8 fL Normal 8.1-13.5 [facility] Comment on above: Performed By: #### C P, LIP, CDP #### [facility] [address] [place], [facility]83 [employer] Operator: Lakhwinder Tim MD Platelets (Bld) [#/Vol] 170 10*3/uL Normal 138-453 [facility] Comment on above: Performed By: #### C P, LIP, CDP #### [address] [place], [place] 7053283 [employer] Operator: Lakhwinder Tim MD RBC (Bld) [#/Vol] 3.94 10*6/uL Low 3.95-5.11 [facility] Comment on above: Performed By: #### C P, LIP, CDP #### [address] [place], [facility]83 [employer] Operator: Lakhwinder Tim MD WBC (Bld) [#/Vol] 9.4 10*3/uL Normal 3.5-11.3 [facility] Comment on above: Performed By: #### C P, LIP, CDP #### [address] [place], [place] [address] [employer] Operator: Lakhwinder Tim MD Comp Metabolic Pr/rfx MGon 1 0- Albumin [Mass/Vol] 3.6 g/dL Normal 3.5-5.2 [facility] Comment on above: Performed By: #### C P, LIP, CDP #### [address] [place], [facility]83 [employer] Operator: Lakhwinder Tim MD Albumin/Glob Ratio 1.2 Normal 1.0-2.5 [facility] Comment on above: Performed By: #### C P, LIP, CDP #### [facility] [address] [place], [place] [phone] [employer] Operator: Lakhwinder Tim MD Alkaline Phos 49 U/L Normal 35-104 [facility] Comment on above: Performed By: #### C P, LIP, CDP #### [facility] [address] [place], [place] [phone] [employer] Operator: Lakhwinder Tim MD ALT [Catalytic activity/Vol] 13 U/L Normal 10-35 [facility] Comment on above: Performed By: #### C P, LIP, CDP #### [facility] [address] [place], [place] 7072783 [employer] Operator: Lakhwinder Tim MD Anion gap [Moles/Vol] 9 mmol/L Normal 9-16 [facility] Comment on above: Performed By: #### C P, LIP, CDP #### [facility] [address] [place], [place] [phone] [employer] Operator: Lakhwinder Tim MD AST [Catalytic activity/Vol] 13 U/L Normal 10-35 [facility] Comment on above: Performed By: #### C P, LIP, CDP #### [facility] [address] [place], [place] [phone] [employer] Operator: Lakhwinder Tim MD Bilirubin [Mass/Vol] 0.7 mg/dL Normal 0.00-1.20 [facility] Comment on above: Performed By: #### C P, LIP, CDP #### [facility] [address] [place], [place] 6295583 [employer] Operator: Lakhwinder Tim MD BUN/CRE Ratio 18 Normal 9-20 [facility] Comment on above: Performed By: #### C P, LIP, CDP #### [facility] [address] [place], [place] 2899483 [employer] Operator: Lakhwinder Tim MD Calcium [Mass/Vol] 8.4 mg/dL Low 8.6-10.4 [facility] Comment on above: Performed By: #### C P, LIP, CDP #### [facility] [address] [place], [place] [phone] [employer] Operator: Lakhwinder Tim MD Chloride [Moles/Vol] 105 mmol/L Normal 98-107 [facility] Comment on above: Performed By: #### C P, LIP, CDP #### [facility] [address] [place] [address] [employer] Operator: Lakhwinder Tim MD CO2 [Moles/Vol] 23 mmol/L Normal 20-31 [facility] Comment on above: Performed By: #### C P, LIP, CDP #### [address] [place], [place] 7687483 [employer] Operator: Lakhwinder Tim MD Creatinine [Mass/Vol] 0.5 mg/dL Normal 0.50-0.90 [facility] Comment on above: Performed By: #### C P, LIP, CDP #### [address] [place], [place] [phone] [employer] Operator: Lakhwinder Tim MD GFR/1.73 sq M.predicted among non-blacks MDRD (S/P/Bld) [Vol rate/Area] mL/min/{1.73_m2} Normal >60 [facility] Comment on above: Result Comment: These results [...] By: #### C P, LIP, CDP #### [facility] [address] [place] [address] [employer] Operator: Lakhwinder Tim MD Glucose [Mass/Vol] 136 mg/dL High 74-99 [facility] Comment on above: Performed By: #### C P, LIP, CDP #### [facility] [address] [place], [place] [phone] [employer] Operator: Lakhwinder Tim MD Potassium [Moles/Vol] 4.0 mmol/L Normal 3.7-5.3 [facility] Comment on above: Performed By: #### C P, LIP, CDP #### [facility] [address] [place], [place] 7555383 [employer] Operator: Lakhwinder Tim MD Protein [Mass/Vol] 6.6 g/dL Normal 6.6-8.7 [facility] Comment on above: Performed By: #### C P, LIP, CDP #### [facility] [address] [place], [place] 4523483 [employer] Operator: Lakhwinder Tim MD Sodium [Moles/Vol] 137 mmol/L Normal 136-145 [facility] Comment on above: Performed By: #### C P, LIP, CDP #### [facility] [address] [place], [place] 9481383 [employer] Operator: Lakhwinder Tim MD Urea nitrogen [Mass/Vol] 9 mg/dL Normal 6-20 [facility] Comment on above: Performed By: #### C P, LIP, CDP #### [facility] [address] [place], [place] 7292683 [employer] Operator: Lakhwinder Tim MD Comprehensive Metabolic Pane l w/ Reflex to MGon 04-11-2024 Albumin [Mass/Vol] 3.6 g/dL 3.5 - 5.2 g/dL [facility] Albumin/Globulin [Mass ratio] 1.2 {ratio} 1.0 - 2.5 [facility] ALP [Catalytic activity/Vol] 49 U/L 35 - 104 U/L [facility] ALT [Catalytic activity/Vol] 13 U/L 10 - 35 U/L [facility] Anion gap [Moles/Vol] 9 mmol/L 9 - 16 mmol/L [facility] AST [Catalytic activity/Vol] 13 U/L 10 - 35 U/L [facility] Bilirubin [Mass/Vol] 0.7 mg/dL 0.00 - 1.20 mg/dL [facility] Calcium [Mass/Vol] 8.4 mg/dL Low 8.6 - 10. 4 mg/dL [facility] Chloride [Moles/Vol] 105 mmol/L 98 - 10 7 mmol/L [facility] CO2 [Moles/Vol] 23 mmol/L 20 - 31 mmol/L [facility] Creatinine [Mass/Vol] 0.5 mg/dL 0.50 - 0.90 mg/dL [facility] EstLove Rate - PINF [facility] Comment on above: These results are not [...] mg/dL High 74 - 99 mg/dL [facility] Interpretation and review of laboratory results Abnormal [facility] Potassium [Moles/Vol] 4.0 mmol/L 3.7 - 5.3 mmol/L [facility] Protein [Mass/Vol] 6.6 g/dL 6.6 - 8.7 g/dL [facility] Sodium [Moles/Vol] 137 mmol/L 136 - 145 mmol/L [facility] Urea nitrogen [Mass/Vol] 9 mg/dL 6 - 20 mg/dL [facility] Urea nitrogen/Creatinine [Mass ratio] 18 mg/mg 9 - 20 [facility] EKG 12 LeadOrdered By: Haley mcghee on 04-11-2024 Atrial Rate 99 BPM [facility] Work Phone: P [place] 46 degrees [employer] Work Phone: P-R Interval 148 ms [employer] Work Phone: Q-T Interval 362 ms [employer] Work Phone: QRS Duration 96 ms [employer] Work Phone: QTc Calculation (Bazett) 464 ms [employer] Work Phone: R [place] 33 degrees [employer] Work Phone: T [place] 37 degrees [employer] Work Phone: Ventricular Rate 99 BPM [employer] Work Phone: [employer] Work Phone: EKG 12 Leadon 04-11-2024 Poor data qualit y, interpretation may be adversely affected Normal sinus rhythm Incomplete right bundle branch block Nonspecific T wave abnormality Prolonged QT Abnormal ECG ECG not diagnostic for Acute Coronary Syndrome; consider clinical findings When compared with ECG of 15-AUG-2023 19:40, Poor data quality in current ECG precludes serial comparison Confirmed by Haley Hicks MD (2) on 04/11/2024 8:01:06 AM [facility] Haley Hicks MD - 04/11/2024 [...] Hicks MD ([id number]) on 04/11/2024 8:01:06 AM [employer] EKG Rhythm Stripon [facility] [employer] Surgical Pathology Reporton 04-11-2024 Surgical Pathology Report (NOTE) Path Number: [id number] -- Diagnosis -- A. APPENDIX, APPENDECTOMY: Unremarkable appendix with minimal serosal adhesions. Sara Genao M.D. Electronically Signed Out kmg2/04/12/2024 Clinical Information Pre-Op Diagnosis: PERITONEAL CAVITY FREE AIR Operative Findings: APPENDIX Operation Performed: LAPAROTOMY EXPLORATORY, APPENDECTOMY, VAGINAL CUFF DEHISCENCE REPAIR kb Source of Specimen A: APPENDIX Gross Description URBANO GONZALEZ Received in formalin is an 8.4 cm [...] Microscopic Description Microscopic examination performed. Processing Lab: [address] [address] Interpretation Performed at [address] [address] SURGICAL PATHOLOGY CONSULTATION Patient Name: BARBRA CLAROS [facility] Rec: [id number] [facility] ANATOMIC PATHOLOGY [address] [place] [address]. [place], [place] [address] [facility] TYPE AND SCREENon 04-11-2024 ABO and Rh group Nom (Bld) Blood group O Rh(D) positive [facility] Arm Band Number [id number] [facility] Blood Bank Sample Expiration 04/13/2024,2359 [facility] Blood group antibodies identified Nom Negative [facility] Type + Screenon 04-11-2024 Type + Screen Sample Expiration 04/13/2024,2404 Arm Band Number [id number] ABO/Rh(D) O POSITIVE Antibody Screen NEGATIVE [facility] Comment on above: Performed By: #### C DP #### [facility] [address] [place] [address] [employer] Operator: Lakhwinder Tim MD Basic Metabolic Panelon - Anion gap [Moles/Vol] 10 mmol/L 9 - 16 mmol/L [facility] Calcium [Mass/Vol] 9.0 mg/dL 8.6 - 10. 4 mg/dL [facility] Chloride [Moles/Vol] 103 mmol/L 98 - 10 7 mmol/L [facility] CO2 [Moles/Vol] 26 mmol/L 20 - 31 mmol/L [facility] Creatinine [Mass/Vol] 0.5 mg/dL 0.50 - 0.90 mg/dL [facility] Est, Gl[employer]essa Canrest Rate - PINF [facility] Comment on above: These results are not [...] 88 mg/dL 74 - 99 mg/dL [facility] Interpretation and review of laboratory results Abnormal [facility] Potassium [Moles/Vol] 3.7 mmol/L 3.7 - 5.3 mmol/L [facility] Sodium [Moles/Vol] 139 mmol/L 136 - 145 mmol/L [facility] Urea nitrogen [Mass/Vol] 11 mg/dL 6 - 20 mg/dL [facility] Urea nitrogen/Creatinine [Mass ratio] 22 mg/mg High - [facility] Basic Metabolic Profon 04-10 Anion gap [Moles/Vol] 10 mmol/L Normal 9-16 [facility] Comment on above: Performed By: #### C PTOM, CDP #### [facility] [address] [place] [address] [employer] Operator: Lakhwinder Tim MD BUN/CRE Ratio 22 High - [facility] Comment on above: Performed By: #### C PTOM, CDP #### [facility] [address] [place], [place] [phone] [employer] Operator: Lakhwinder Tim MD Calcium [Mass/Vol] 9.0 mg/dL Normal 8.6-10.4 [facility] Comment on above: Performed By: #### C P, LIP, CDP #### [facility] [address] [place], [place] [phone] [employer] Operator: Lakhwinder Tim MD Chloride [Moles/Vol] 103 mmol/L Normal 98-107 [facility] Comment on above: Performed By: #### C P, LIP, CDP #### [facility] [address] [place] [address] [employer] Up Operator: Lakhwinder Tim MD CO2 [Moles/Vol] 26 mmol/L Normal 20-31 [facility] Comment on above: Performed By: #### C P, LIP, CDP #### [facility] [address] [place], [place] 9074783 [employer] Operator: Lakhwinder Tim MD Creatinine [Mass/Vol] 0.5 mg/dL Normal 0.50-0.90 [facility] Comment on above: Performed By: #### C P, LIP, CDP #### [facility] [address] [place], [place] [phone] [employer] Operator: Lakhwinder Tim MD GFR/1.73 sq M.predicted among non-blacks MDRD (S/P/Bld) [Vol rate/Area] mL/min/{1.73_m2} Normal >60 [facility] Comment on above: Result Comment: These results [...] By: #### C P, LIP, CDP #### [facility] [address] [place], [place] 8263683 [employer] Operator: Lakhwinder Tim MD Glucose [Mass/Vol] 88 mg/dL Normal 74-99 [facility] Comment on above: Performed By: #### C P, LIP, CDP #### [facility] [address] [place], [place] 3296183 [employer] Operator: Lakhwinder Tim MD Potassium [Moles/Vol] 3.7 mmol/L Normal 3.7-5.3 [facility] Comment on above: Performed By: #### C P, LIP, CDP #### [facility] [address] [place], [place] 6682083 [employer] Operator: Lakhwinder Tim MD Sodium [Moles/Vol] 139 mmol/L Normal 136-145 [facility] Comment on above: Performed By: #### C P, LIP, CDP #### [facility] [address] [place], [place] 2722783 [employer] Operator: Lakhwinder Tim MD Urea nitrogen [Mass/Vol] 11 mg/dL Normal 6-20 [facility] Comment on above: Performed By: #### C P, LIP, CDP #### [facility] [address] [place], [place] 3203083 [employer] Operator: Lakhwinder Tim MD CBC with Auto Differentialon 04-10-2024 Basophils (Bld) [#/Vol] [facility] Basophils/100 WBC (Bld) 0 % 0 - 2 % [facility] Eosinophils (Bld) [#/Vol] [facility] Eosinophils/100 WBC (Bld) 0 % Low 1 - 4 % [facility] Erythrocyte distribution width (RBC) [Ratio] 13.8 % 11.8 - 14.4 % [facility] Hematocrit (Bld) [Volume fraction] 36.3 % 36.3 - 47.1 % [facility] Hemoglobin (Bld) [Mass/Vol] 11.7 g/dL Low 11.9 - 15.1 g/dL [facility] Immature granulocytes (Bld) [#/Vol] [facility] Immature granulocytes/100 WBC (Bld) 0 % 0 [facility] Interpretation and review of laboratory results Abnormal [facility] Lymphocytes/100 WBC (Bld) 17 % Low 24 - 43 % [facility] Lymphocytes/100 WBC (Bld) 1.52 % [facility] MCH (RBC) [Entitic mass] 28.1 pg 25.2 - 33.5 pg [facility] MCHC (RBC) [Mass/Vol] 32.2 g/dL 28.4 - 34.8 g/dL [facility] MCV (RBC) [Entitic vol] 87.3 fL 82.6 - 102.9 fL [facility] Monocytes/100 WBC (Bld) 7 % 3 - 12 % [facility] Monocytes/100 WBC (Bld) 0.66 % [facility] Neutrophils/100 WBC (Bld) 76 % High 36 - 65 % [facility] Nucleated RBC/100 WBC (Bld) [Ratio] 0.0 % 0.0 per 100 WBC [facility] Platelet mean volume (Bld) [Entitic vol] 10.5 fL 8.1 - 13.5 fL [facility] Platelets (Bld) [#/Vol] 192 10*3/uL [facility] RBC (Bld) [#/Vol] 4.16 10*6/uL 3.95 - 5.1 1 m/uL [facility] Segmented neutrophils/100 WBC (Bld) 6.88 % [facility] WBC other (Bld) [#/Vol] 9.1 [facility] CBC with Diffon 04-10-2024 Abs. Basophil <0.03 Normal 0.00-0.20 [facility] Comment on above: Performed By: #### C P, LIP, CDP #### [facility] [address] [place] [address] [employer] Operator: Lakhwinder Tim MD Abs. Eosinophil <0.03 Normal 0.00-0.44 [facility] Comment on above: Performed By: #### C P, LIP, CDP #### [facility] [address] [place], [place] 1089383 [employer] Operator: Lakhwinder Tim MD Abs.Imm.Granulocyte <0.03 Normal 0.00-0.30 [facility] Comment on above: Performed By: #### C P, LIP, CDP #### [facility] [address] [place], [place] 1448683 [employer] Operator: Lakhwinder Tim MD Abs.Neutrophil (Seg) 6.88 k/uL Normal 1.50-8.10 [facility] Comment on above: Performed By: #### C P, LIP, CDP #### [address] [place], [facility]83 [employer] Operator: Lakhwinder Tim MD Basophils/100 WBC (Bld) 0 % Normal 0-2 [facility] Comment on above: Performed By: #### C P, LIP, CDP #### [address] [place], [facility] [employer] Operator: Lakhwinder Tim MD Eosinophils/100 WBC (Bld) 0 % Low 1-4 [facility] Comment on above: Performed By: #### C P, LIP, CDP #### [facility] [address] [place] [address] Dr. [place], [facility]83 [employer] Operator: Lakhwinder Tim MD Erythrocyte distribution width (RBC) [Ratio] 13.8 % Normal 11.8-14.4 [facility] Comment on above: Performed By: #### C P, LIP, CDP #### [address] [place] [address] [employer] Operator: Lakhwinder Tim MD Hematocrit (Bld) [Volume fraction] 36.3 % Normal 36.3-47.1 [facility] Comment on above: Performed By: #### C P, LIP, CDP #### [address] [place], [facility]83 [employer] Operator: Lakhwinder Tim MD Hemoglobin (Bld) [Mass/Vol] 11.7 g/dL Low 11.9-15.1 [facility] Comment on above: Performed By: #### C P, LIP, CDP #### [address] [place], [place] [address] [employer] Operator: Lakhwinder Tim MD Immature granulocytes/100 WBC (Bld) 0 % Normal 0 [facility] Comment on above: Performed By: #### C P, LIP, CDP #### [address] [place], [place] [address] [employer] Operator: Lakhwinder Tim MD Lymphocytes (Bld) [#/Vol] 1.52 10*3/uL Normal 1.10-3.70 [facility] Comment on above: Performed By: #### C P, LIP, CDP #### [address] [place], [place] [address] [employer] Operator: Lakhwinder Tim MD Lymphocytes/100 WBC (Bld) 17 % Low 24-43 [facility] Comment on above: Performed By: #### C P, LIP, CDP #### [address] [place], [place] [address] [employer] Operator: Lakhwinder Tim MD MCH (RBC) [Entitic mass] 28.1 pg Normal 25.2-33.5 [facility] Comment on above: Performed By: #### C P, LIP, CDP #### [address] [place], [facility]83 [employer] Operator: Lakhwinder Tim MD MCHC (RBC) [Mass/Vol] 32.2 g/dL Normal 28.4-34.8 [facility] Comment on above: Performed By: #### C P, LIP, CDP #### [facility] [address] [place], [place] [id number] [employer] Operator: Lakhwinder Tim MD MCV (RBC) [Entitic vol] 87.3 fL Normal 82.6-102.9 [facility] Comment on above: Performed By: #### C P, LIP, CDP #### [facility] [address] [place], [place] [id number] [employer] Operator: Lakhwinder Tim MD Monocytes (Bld) [#/Vol] 0.66 10*3/uL Normal 0.10-1.20 [facility] Comment on above: Performed By: #### C P, LIP, CDP #### [address] [place], [place] [phone] [employer] Operator: Lakhwinder Tim MD Monocytes/100 WBC (Bld) 7 % Normal 3-12 [facility] Comment on above: Performed By: #### C P, LIP, CDP #### [address] [place], [place] [id number] [employer] Operator: Lakhwinder Tim MD Neutrophil (Seg) 76 % High 36-65 [facility] Comment on above: Performed By: #### C P, LIP, CDP #### [address] [place], [place] [id number] [employer] Operator: Lakhwinder Tim MD NRBC Automated 0.0 per 100 WBC Normal 0.0 [facility] Comment on above: Performed By: #### C P, LIP, CDP #### [facility] [address] [place], [place] [id number] [employer] Operator: Lakhwinder Tim MD Platelet mean volume (Bld) [Entitic vol] 10.5 fL Normal 8.1-13.5 [facility] Comment on above: Performed By: #### C P, LIP, CDP #### [address] [place], [place] [phone] [employer] Operator: Lakhwinder Tim MD Platelets (Bld) [#/Vol] 192 10*3/uL Normal 138-453 [facility] Comment on above: Performed By: #### C P, LIP, CDP #### [facility] [address] [place], [place] [phone] [employer] Operator: Lakhwinder Tim MD RBC (Bld) [#/Vol] 4.16 10*6/uL Normal 3.95-5.11 [facility] Comment on above: Performed By: #### C P, LIP, CDP #### [facility] [address] [place], [place] [id number] [employer] Operator: Lakhwinder Tmi MD WBC (Bld) [#/Vol] 9.1 10*3/uL Normal 3.5-11.3 [facility] Comment on above: Performed By: #### C P LIP, CDP #### [facility] [address] [place], [place] [phone] [employer] Operator: Lakhwinder Tim MD CT ABDOMEN PELVIS W [...] MD 04/10/24 Edited Result - FINAL Normal [facility] CT Abdomen and Pelvis W cont rast [...] ELA Laird at 8:04 p.m. on 04/10/2024. [facility]IS CONSOLIDATED EXAMINATION: CT OF THE ABDOMEN [...] Laird at 8:04 p.m. on 04/10/2024. [facility] Radiology Study observation (narrative) [facility] CT Abdomen and Pelvis W cont rast IVOrdered By: Esther Coates on 04-10-2024 [facility] Work Phone: Lactic Acidon 04-10-2024 Lactate (BldV) [Moles/Vol] 0.6 mmol/L 0.5 - 2.2 mmol/L [facility] Lactate [Moles/Vol] 0.6 mmol/L Normal 0.5-2.2 [facility] Comment on above: Performed By: #### C P, LIP, CDP #### [facility] [address] [place] [address] [employer] Operator: Lakhwinder Tim MD Microscopic Urinalysison Epithelial cells LM.HPF (Urine sed) [#/Area] 0 TO 2 [facility] Interpretation and review of laboratory results Abnormal [facility] Mucus Ql (Urine sed) TRACE Abnormal None [facility] RBC LM.HPF (Urine sed) [#/Area] 0 TO 2 [facility] WBC LM.HPF (Urine sed) [#/Area] 0 TO 2 [facility] UA w/Reflex Cultureon 2023 Bilirubin, SemiQt,Ur Negative Normal NEG [facility] Comment on above: Performed By: #### C P, LIP, CDP #### [facility] [address] [place] [address] [employer] Operator: Lakhwinder Tim MD Blood, Urine TRACE Abnormal NEG [facility] Comment on above: Performed By: #### C P, LIP, CDP #### [facility] [address] [place] [address] [employer] Operator: Lakhwinder Tim MD Clarity (U) Clear Normal CLEAR [facility] Comment on above: Performed By: #### C P, LIP, CDP #### [facility] [address] [place] [address] [employer] Operator: Lakhwinder Tim MD Color (U) Yellow Normal YEL [facility] Comment on above: Performed By: #### C P, LIP, CDP #### [facility] [address] [place] [address] [employer] Operator: Lakhwinder Tim MD Glucose Ql (U) Negative Normal NEG [facility] Comment on above: Performed By: #### C P, LIP, CDP #### [facility] [address] [place] [address] [employer] Operator: Lakhwinder Tim MD Ketones Ql (U) Negative Normal NEG [facility] Comment on above: Performed By: #### C P, LIP, CDP #### [facility] [address] [place] [address] Dr. [place], [place] [phone] [employer] Operator: Lakhwinder Tim MD Leukocyte esterase Test strip Ql (U) Negative Normal NEG [facility] Comment on above: Performed By: #### C P, LIP, CDP #### [facility] [address] [place] [address] [place] [address] [employer] Operator: Lakhwinder Tim MD Nitrite,Ur Negative Normal NEG [facility] Comment on above: Performed By: #### C P, LIP, CDP #### [address] [place], [place] 5346383 [employer] Operator: Lakhwinder Tim MD PH,Ur 6.0 Normal 5.0-9.0 [facility] Comment on above: Performed By: #### C P, LIP, CDP #### [facility] [address] [place] [address] [place] [address] [employer] Operator: Lakhwinder Tim MD Protein Ql (U) Negative Normal NEG [facility] Comment on above: Performed By: #### C P, LIP, CDP #### [address] [place], [place] 1196983 [employer] Operator: Lakhwinder Tim MD Spec. [place],Ur 1.020 Normal 1.010-1.020 [facility] Comment on above: Performed By: #### C P, LIP, CDP #### [facility] [address] [place] [address] [place] [address] [employer] Operator: Lakhwinder Tim MD Urobilinogen,Ur Normal Normal 0.0-1.0 [facility] Comment on above: Performed By: #### C P, LIP, CDP #### [address] [place], [place] [phone] [employer] Operator: Lakhwinder Tim MD US NON OB TRANSVAGINAL [...] Arlette Steiner MD 04/10/24 Final result Normal [facility] US Pelvis transvaginalon Normal Doppler flow to the ovaries. The right ovary is not as enlarged when compared with the ultrasound from yesterday. [facility] CONSOLIDATED EXAMINATION: PELVIC ULTRASOUND 04/10/2024 TECHNIQUE: Transvaginal [...] venous Doppler flow. Free Fluid: None seen. [facility] CONSOLID[facility] Arlette Steiner MD - 04/10/2024 EXAMINATION: [...] compared with the ultrasound from yesterday. [facility] Radiology Study observation (narrative) [facility] US Pelvis transvaginalOrdere d By: Arlette Steiner on 04-10-2024 [facility] Work Phone: Urinalysis with Reflex to Cu ltureon 04-10-2024 Bilirubin Ql (U) Negative NEGATIVE [facility] Clarity (U) Clear Clear [facility] Color (U) Yellow Yellow [facility] Glucose Test strip (U) [Mass/Vol] Negative NEGATIVE mg/dL [facility] Hemoglobin Auto test strip Ql (U) TRACE Abnormal NEGATIVE [facility] Interpretation and review of laboratory results Abnormal [facility] Ketones (U) [Mass/Vol] Negative NEGATIVE mg/dL [facility] Leukocyte esterase Test strip Ql (U) Negative NEGATIVE [facility] Nitrite Ql (U) Negative NEGATIVE [facility] pH (U) 6.0 [pH] 5.0 - 9.0 [facility] Protein (U) [Mass/Vol] Negative NEGATIVE mg/dL [facility] Specific gravity (U) [Rel density] 1.020 1.010 - 1.020 [facility] Urobilinogen Qn (U) Normal 0.0 - 1. 0 EU/dL [facility] Urinalysis,Microon 4 Epithelial cells LM Ql (Urine sed) 0 TO 2 Normal 0-25 [facility] Comment on above: Performed By: #### C P, LIP, CDP #### [facility] [address] [place] [address] [employer] Operator: Lakhwinder Tim MD Mucus Strands TRACE Abnormal NONE [facility] Comment on above: Performed By: #### C P, LIP, CDP #### [facility] [address] [place], [place] 7802883 [employer] Operator: Lakhwinder Tim MD Urine RBC's 0 TO 2 Normal 0-2 [facility] Comment on above: Performed By: #### C P, LIP, CDP #### [facility] [address] [place], [place] [phone] [employer] Operator: Lakhwinder Tim MD Urine WBC's 0 TO 2 Normal 0-5 [facility] Comment on above: Performed By: #### C P, LIP, CDP #### [facility] [address] [place] [address] [employer] Operator: Lakhwinder Tim MD Basic Metabolic Panelon 10-2 Anion gap [Moles/Vol] 8 mmol/L Low 9 - 16 mmol/L [facility] Calcium [Mass/Vol] 9.0 mg/dL 8.6 - 10. 4 mg/dL [facility] Chloride [Moles/Vol] 105 mmol/L 98 - 10 7 mmol/L [facility] CO2 [Moles/Vol] 27 mmol/L 20 - 31 mmol/L [facility] Creatinine [Mass/Vol] 0.5 mg/dL 0.50 - 0.90 mg/dL [facility] Est, Glom Filt Rate - PINF [facility] Comment on above: These results are not [...] mg/dL Low 74 - 99 mg/dL [facility] Interpretation and review of laboratory results Abnormal [facility] Potassium [Moles/Vol] 4.1 mmol/L 3.7 - 5.3 mmol/L [facility] Sodium [Moles/Vol] 140 mmol/L 136 - 145 mmol/L [facility] Urea nitrogen [Mass/Vol] 8 mg/dL 6 - 20 mg/dL [facility] Urea nitrogen/Creatinine [Mass ratio] 16 mg/mg 9 - 20 [facility] Basic Metabolic Profon 04-09 Anion gap [Moles/Vol] 8 mmol/L Low 9-16 [facility] Comment on above: Performed By: #### C P, LIP, CDP #### [facility] [address] [place] [address] [employer] Operator: Lakhwinder Tim MD BUN/CRE Ratio 16 Normal - [facility] Comment on above: Performed By: #### C P, LIP, CDP #### [facility] [address] [place] [address] [employer] Up Operator: Lakhwinder Tim MD Calcium [Mass/Vol] 9.0 mg/dL Normal 8.6-10.4 [facility] Comment on above: Performed By: #### C P, LIP, CDP #### [facility] [address] [place], [place] 1174783 [employer] Operator: Lakhwinder Tim MD Chloride [Moles/Vol] 105 mmol/L Normal 98-107 [facility] Comment on above: Performed By: #### C P, LIP, CDP #### [facility] [address] [place] [address] [employer] Up Operator: Lakhwinder Tim MD CO2 [Moles/Vol] 27 mmol/L Normal 20-31 [facility] Comment on above: Performed By: #### C P, LIP, CDP #### [facility] [address] [place] [address] [employer] Operator: Lakhwinder Tim MD Creatinine [Mass/Vol] 0.5 mg/dL Normal 0.50-0.90 [facility] Comment on above: Performed By: #### C TOM Mckeon, CDP #### [facility] [address] [place] [address] [employer] Operator: Lakhwinder Tim MD GFR/1.73 sq M.predicted among non-blacks MDRD (S/P/Bld) [Vol rate/Area] mL/min/{1.73_m2} Normal >60 [facility] Comment on above: Result Comment: These results [...] renal tubular secretion. Performed By: #### C TOM Mckeon, CDP #### [facility] [address] [place] [address] [employer] Operator: Lakhwinder Tim MD Glucose [Mass/Vol] 73 mg/dL Low 74-99 [facility] Comment on above: Performed By: #### C TOM Mckeon, CDP #### [facility] [address] [place], [place] 2998483 [employer] Up Operator: Lakhwinder Tim MD Potassium [Moles/Vol] 4.1 mmol/L Normal 3.7-5.3 [facility] Comment on above: Performed By: #### C PTOM, CDP #### [facility] [address] [place] [address] [employer] Operator: Lakhwinder Tim MD Sodium [Moles/Vol] 140 mmol/L Normal 136-145 [facility] Comment on above: Performed By: #### C P LIP, CDP #### [facility] [address] [place] [address] [employer] Operator: Lakhwinder Tim MD Urea nitrogen [Mass/Vol] 8 mg/dL Normal 6-20 [facility] Comment on above: Performed By: #### C P, TOM, TOMAS #### [facility] [address] [place] [address] [employer] Operator: Lakhwinder Tim MD CBC with Auto Differentialon 04-09-2024 Basophils (Bld) [#/Vol] 0.03 10*3/uL [facility] Basophils/100 WBC (Bld) 1 % 0 - 2 % [facility] Eosinophils (Bld) [#/Vol] 0.07 10*3/uL [facility] Eosinophils/100 WBC (Bld) 1 % 1 - 4 % [facility] Erythrocyte distribution width (RBC) [Ratio] 13.5 % 11.8 - 14.4 % [facility] Hematocrit (Bld) [Volume fraction] 36.7 % 36.3 - 47.1 % [facility] Hemoglobin (Bld) [Mass/Vol] 11.7 g/dL Low 11.9 - 15.1 g/dL [facility] Immature granulocytes (Bld) [#/Vol] [facility] Immature granulocytes/100 WBC (Bld) 0 % 0 [facility] Interpretation and review of laboratory results Abnormal [facility] Lymphocytes/100 WBC (Bld) 38 % 24 - 43 % [facility] Lymphocytes/100 WBC (Bld) 2.24 % [facility] MCH (RBC) [Entitic mass] 28.1 pg 25.2 - 33.5 pg [facility] MCHC (RBC) [Mass/Vol] 31.9 g/dL 28.4 - 34.8 g/dL [facility] MCV (RBC) [Entitic vol] 88.2 fL 82.6 - 102.9 fL [facility] Monocytes/100 WBC (Bld) 7 % 3 - 12 % [facility] Monocytes/100 WBC (Bld) 0.40 % [facility] Neutrophils/100 WBC (Bld) 53 % 36 - 65 % [facility] Nucleated RBC/100 WBC (Bld) [Ratio] 0.0 % 0.0 per 100 WBC [facility] Platelet mean volume (Bld) [Entitic vol] 10.1 fL 8.1 - 13.5 fL [facility] Platelets (Bld) [#/Vol] 188 10*3/uL [facility] RBC (Bld) [#/Vol] 4.16 10*6/uL 3.95 - 5.1 1 m/uL [facility] Segmented neutrophils/100 WBC (Bld) 3.21 % [facility] WBC other (Bld) [#/Vol] 6.0 [facility] CBC with Diffon 04-09-2024 Abs. Basophil 0.03 k/uL Normal 0.00-0.20 [facility] Comment on above: Performed By: #### C P, LIP, CDP #### [facility] [address] [place] [address] [place] [place] [phone] [employer] Up Operator: Lakhwinder Tim MD Abs.Imm.Granulocyte <0.03 Normal 0.00-0.30 [facility] Comment on above: Performed By: #### C P, LIP, CDP #### [address] [place] [phone] [employer] Up Operator: Lakhwinder Tim MD Abs.Neutrophil (Seg) 3.21 k/uL Normal 1.50-8.10 [facility] Comment on above: Performed By: #### C P, LIP, CDP #### [address] [place], [facility]83 [employer] Up Operator: Lakhwinder Tim MD Basophils/100 WBC (Bld) 1 % Normal 0-2 [facility] Comment on above: Performed By: #### C P, LIP, CDP #### [facility] [address] [place] [address] Dr. [place] [phone] [employer] Up Operator: Lakhwinder Tim MD Eosinophils (Bld) [#/Vol] 0.07 10*3/uL Normal 0.00-0.44 [facility] Comment on above: Performed By: #### C P, LIP, CDP #### [address] [place], [facility]83 [employer] Up Operator: Lakhwinder Tim MD Eosinophils/100 WBC (Bld) 1 % Normal 1-4 [facility] Comment on above: Performed By: #### C P, LIP, CDP #### [address] [place], [place] [address] [employer] Operator: Lakhwinder Tim MD Erythrocyte distribution width (RBC) [Ratio] 13.5 % Normal 11.8-14.4 [facility] Comment on above: Performed By: #### C P, LIP, CDP #### [address] [place] [id number] [employer] Up Operator: Lakhwinder Tim MD Hematocrit (Bld) [Volume fraction] 36.7 % Normal 36.3-47.1 [facility] Comment on above: Performed By: #### C P, LIP, CDP #### [address] [place], [place] [address] [employer] Up Operator: Lakhwinder Tim MD Hemoglobin (Bld) [Mass/Vol] 11.7 g/dL Low 11.9-15.1 [facility] Comment on above: Performed By: #### C P, LIP, CDP #### [address] [place], [facility]83 [employer] Up Operator: Lakhwinder Tim MD Immature granulocytes/100 WBC (Bld) 0 % Normal 0 [facility] Comment on above: Performed By: #### C P, LIP, CDP #### [address] [place] [id number] [employer] Up Operator: Lakhwinder Tim MD Lymphocytes (Bld) [#/Vol] 2.24 10*3/uL Normal 1.10-3.70 [facility] Comment on above: Performed By: #### C P, LIP, CDP #### [facility] [address] [place], [place] [address] [employer] Up Operator: Lakhwinder Tim MD Lymphocytes/100 WBC (Bld) 38 % Normal 24-43 [facility] Comment on above: Performed By: #### C P, LIP, CDP #### [facility] [address] [place], [place] [address] [employer] Up Operator: Lakhwinder Tim MD MCH (RBC) [Entitic mass] 28.1 pg Normal 25.2-33.5 [facility] Comment on above: Performed By: #### C P, LIP, CDP #### [address] [place], [facility]83 [employer] Up Operator: Lakhwinder Tim MD MCHC (RBC) [Mass/Vol] 31.9 g/dL Normal 28.4-34.8 [facility] Comment on above: Performed By: #### C P, LIP, CDP #### [address] [place], [facility]83 [employer] Up Operator: Lakhwinder Tim MD MCV (RBC) [Entitic vol] 88.2 fL Normal 82.6-102.9 [facility] Comment on above: Performed By: #### C P, LIP, CDP #### [address] [place], [place] [address] [employer] Up Operator: Lakhwinder Tim MD Monocytes (Bld) [#/Vol] 0.40 10*3/uL Normal 0.10-1.20 [facility] Comment on above: Performed By: #### C P, LIP, CDP #### [facility] [address] [place] [address] [employer] Up Operator: Lakhwinder Tim MD Monocytes/100 WBC (Bld) 7 % Normal 3-12 [facility] Comment on above: Performed By: #### C P, LIP, CDP #### [facility] [address] [place], [place] [phone] [employer] Up Operator: Lakhwinder Tim MD Neutrophil (Seg) 53 % Normal 36-65 [facility] Comment on above: Performed By: #### C P, LIP, CDP #### [address] [place], [place] [phone] [employer] Up Operator: Lakhwinder Tim MD NRBC Automated 0.0 per 100 WBC Normal 0.0 [facility] Comment on above: Performed By: #### C P, LIP, CDP #### [address] [place], [place] [phone] [employer] Operator: Lakhwinder Tim MD Platelet mean volume (Bld) [Entitic vol] 10.1 fL Normal 8.1-13.5 [facility] Comment on above: Performed By: #### C P, LIP, CDP #### [address] [place], [place] [phone] [employer] Operator: Lakhwinder Tim MD Platelets (Bld) [#/Vol] 188 10*3/uL Normal 138-453 [facility] Comment on above: Performed By: #### C P, LIP, CDP #### [address] [place], [place] [phone] [employer] Operator: Lakhwinder Tim MD RBC (Bld) [#/Vol] 4.16 10*6/uL Normal 3.95-5.11 [facility] Comment on above: Performed By: #### C P, LIP, CDP #### [address] [place], [place] [id number] [employer] Operator: Lakhwinder Tim MD WBC (Bld) [#/Vol] 6.0 10*3/uL Normal 3.5-11.3 [facility] Comment on above: Performed By: #### C P, LIP, CDP #### [address] [place] [address] [employer] Up Operator: Lakhwinder Tim MD Lactic Acidon 04-09-2024 Lactate (BldV) [Moles/Vol] 0.9 mmol/L 0.5 - 2.2 mmol/L [facility] Lactate [Moles/Vol] 0.9 mmol/L Normal 0.5-2.2 [facility] Comment on above: Performed By: #### C DP #### [facility] [address] [place] [address] [employer] Up Operator: Lakhwinder Tim MD Microscopic Urinalysison Bacteria LM Ql (Urine sed) 1+ Abnormal None [facility] Epithelial cells LM.HPF (Urine sed) [#/Area] 2 TO 5 [facility] Interpretation and review of laboratory results Abnormal [facility] Mucus Ql (Urine sed) 1+ Abnormal None [facility] RBC LM.HPF (Urine sed) [#/Area] 0 TO 2 [facility] WBC LM.HPF (Urine sed) [#/Area] 0 TO 2 [facility] UA w/Reflex Cultureon 2023 Bilirubin, SemiQt,Ur Negative Normal NEG [facility] Comment on above: Performed By: #### U MICAO, UAX #### [facility] [address] [place] [address] [employer] Operator: Lakhwinder Tim MD Blood, Urine Negative Normal NEG [facility] Comment on above: Performed By: #### U MICAO, UAX #### [facility] [address] [place] [address] [employer] Up Operator: Lakhwinder Tim MD Clarity (U) Clear Normal CLEAR [facility] Comment on above: Performed By: #### U MICAO, UAX #### [facility] [address] [place] [address] [employer] Up Operator: Lakhwinder Tim MD Color (U) Yellow Normal YEL [facility] Comment on above: Performed By: #### U MICAO, UAX #### [facility] [address] [place], [place] [id number] [employer] Set Up Operator: Lakhwinder Tim MD Glucose Ql (U) Negative Normal NEG [facility] in Hospital Comment on above: Performed By: #### U MICAO, UAX #### [facility] [address] [place] [address] [employer] Operator: Lakhwnider Tim MD Ketones Ql (U) Negative Normal NEG [facility] in Hospital Comment on above: Performed By: #### U MICAO, UAX #### [facility] [address] [place] [address] Dr[place], [place] [phone] [employer] Operator: Lakhwinder Tim MD Leukocyte esterase Test strip Ql (U) Negative Normal NEG [facility] Comment on above: Performed By: #### U MICAO, UAX #### [facility] [address] [place] [address] [place] [address] [employer] Generator Set Up Operator: Lakhwinder Tim MD Nitrite,Ur Negative Normal NEG [facility] Comment on above: Performed By: #### U MICAO, UAX #### [facility] [address] [place] [address] [place] [address] [employer] Set Up Operator: Lakhwinder Tim MD PH,Ur 8.0 Normal 5.0-9.0 [facility] Comment on above: Performed By: #### U MICAO, UAX #### [facility] [address] [place], [place] [id number] [employer] Up Operator: Lakhwinder Tim MD Protein Ql (U) Negative Normal NEG [facility] in Hospital Comment on above: Performed By: #### U MICAO, UAX #### [facility] [address] [place], [place] [phone] [employer] Operator: Lakhwinder Tim MD Spec. [place],Ur 1.020 Normal 1.010-1.020 [facility] Comment on above: Performed By: #### U KARINA, UAX #### [facility] [address] [place] [address] [employer] Gener[employer] Set Up Operator: Lakhwinder Tim MD Urobilinogen,Ur Normal Normal 0.0-1.0 [facility] Comment on above: Performed By: #### U KARINA, UAX #### [facility] [address] [place] [address] [employer] Gener[employer] Set Up Operator: Lakhwinder Tim MD US NON OB TRANSVAGINAL [...] Lexus Villegas MD 04/09/24 Final result Normal [facility] US Pelvis transvaginalon 1. No sonographic evidence of ovarian torsion. 2. The previously described complex right ovarian cystic lesion now appears to represent two adjacent simple cysts versus less likely a cystic lesion with a thickened internal septation. A separate 2.7 cm mildly heterogeneous area could represent hemorrhagic cyst. Consider 6-8 week pelvic ultrasound to assess change. 3. Prior hysterectomy. [facility] EXAMINATION: TRANSVAGINAL PELVIC ULTRASOUND WITH DOPPLER 04/09/2024 [...] Free Fluid: No evidence of free fluid. [facility] Lexus Villegas MD - 04/09/2024 EXAMINATION: [...] to assess change. 3. Prior hysterectomy. [facility] Radiology Study observation (narrative) [facility] US Pelvis transvaginalOrdere d By: Lexus Villegas on 04-09-2024 [facility] Work Phone: Urinalysis with Reflex to Cu ltureon 04-09-2024 Bilirubin Ql (U) Negative NEGATIVE [facility] urs [facility] Clarity (U) Clear Clear [facility] Color (U) Yellow Yellow [facility] Glucose Test strip (U) [Mass/Vol] Negative NEGATIVE mg/dL [facility] Hemoglobin Auto test strip Ql (U) Negative NEGATIVE [facility] Ketones (U) [Mass/Vol] Negative NEGATIVE mg/dL [facility] Leukocyte esterase Test strip Ql (U) Negative NEGATIVE [facility] Nitrite Ql (U) Negative NEGATIVE Walker s [facility] pH (U) 8.0 [pH] 5.0 - 9.0 [facility] Protein (U) [Mass/Vol] Negative NEGATIVE mg/dL [facility] Specific gravity (U) [Rel density] 1.020 1.010 - 1.020 [facility] Urobilinogen Qn (U) Normal 0.0 - 1. 0 EU/dL [facility] Urinalysis,Microon 4 Bacteria 1+ Abnormal NONE [facility] Comment on above: Performed By: #### U MICAO, UAX #### [facility] [address] [place], [place] [phone] [employer] Operator: Lakhwinder Tim MD Epithelial cells LM Ql (Urine sed) 2 TO 5 Normal 0-25 [facility] Comment on above: Performed By: #### U MICAO, UAX #### [facility] [address] [place], [place] 1532983 [employer] Operator: Lakhwinder Tim MD Mucus Strands 1+ Abnormal NONE [facility] Comment on above: Performed By: #### U MICAO, UAX #### [facility] [address] [place], [place] 8039983 [employer] Operator: Lakhwinder Tim MD Urine RBC's 0 TO 2 Normal 0-2 [facility] Comment on above: Performed By: #### U MICAO, UAX #### [facility] [address] [place], [place] 8252383 [employer] Operator: Lakhwinder Tim MD Urine WBC's 0 TO 2 Normal 0-5 [facility] Comment on above: Performed By: #### U MICAO, UAX #### [facility] [address] [place] [address] [employer] Operator: Lakhwinder Tim MD CBC with Auto Differentialon 04-02-2024 Basophils (Bld) [#/Vol] 0.04 10*3/uL [facility] Basophils/100 WBC (Bld) 1 % 0 - 2 % [facility] Eosinophils (Bld) [#/Vol] 0.07 10*3/uL [facility] Eosinophils/100 WBC (Bld) 2 % 1 - 4 % [facility] Erythrocyte distribution width (RBC) [Ratio] 13.7 % 11.8 - 14.4 % [facility] Hematocrit (Bld) [Volume fraction] 40.3 % 36.3 - 47.1 % [facility] Hemoglobin (Bld) [Mass/Vol] 12.9 g/dL 11.9 - 15.1 g/dL [facility] Immature granulocytes (Bld) [#/Vol] [facility] Immature granulocytes/100 WBC (Bld) 0 % 0 [facility] Lymphocytes/100 WBC (Bld) 38 % 24 - 43 % [facility] Lymphocytes/100 WBC (Bld) 1.81 % [facility] MCH (RBC) [Entitic mass] 27.9 pg 25.2 - 33.5 pg [facility] MCHC (RBC) [Mass/Vol] 32.0 g/dL 28.4 - 34.8 g/dL [facility] MCV (RBC) [Entitic vol] 87.0 fL 82.6 - 102.9 fL [facility] Monocytes/100 WBC (Bld) 6 % 3 - 12 % [facility] Monocytes/100 WBC (Bld) 0.27 % [facility] Neutrophils/100 WBC (Bld) 53 % 36 - 65 % [facility] Nucleated RBC/100 WBC (Bld) [Ratio] 0.0 % 0.0 per 100 WBC [facility] Platelet mean volume (Bld) [Entitic vol] 9.9 fL 8.1 - 13.5 fL [facility] Platelets (Bld) [#/Vol] 259 10*3/uL [facility] RBC (Bld) [#/Vol] 4.63 10*6/uL 3.95 - 5.1 1 m/uL [facility] Segmented neutrophils/100 WBC (Bld) 2.58 % [facility] WBC other (Bld) [#/Vol] 4.8 [facility] CBC with Diffon 04-02-2024 Abs. Basophil 0.04 k/uL Normal 0.00-0.20 [facility] Comment on above: Performed By: #### C DP #### [facility] [address] [place] [address] [place] [address] [employer] Operator: Lakhwinder Tim MD Abs.Imm.Granulocyte <0.03 Normal 0.00-0.30 [facility] Comment on above: Performed By: #### C DP #### [facility] [address] [place] [address] [place] [address] [employer] Operator: Lakhwinder Tim MD Abs.Neutrophil (Seg) 2.58 k/uL Normal 1.50-8.10 [facility] Comment on above: Performed By: #### C DP #### [facility] [address] [place] [address] Dr. [place], [place] [address] [employer] Operator: Lakhwinder Tim MD Basophils/100 WBC (Bld) 1 % Normal 0-2 [facility] Comment on above: Performed By: #### C DP #### [address] [place] [address] [employer] Operator: Lakhwinder Tim MD Eosinophils (Bld) [#/Vol] 0.07 10*3/uL Normal 0.00-0.44 [facility] Comment on above: Performed By: #### C DP #### [address] [place], [place] [address] [employer] Operator: Lakhwinder Tim MD Eosinophils/100 WBC (Bld) 2 % Normal 1-4 [facility] Comment on above: Performed By: #### C DP #### [address] [place], [place] [address] [employer] Operator: Lakhwinder Tim MD Erythrocyte distribution width (RBC) [Ratio] 13.7 % Normal 11.8-14.4 [facility] Comment on above: Performed By: #### C DP #### [address] [place] [address] [employer] Operator: Lakhwinder Tim MD Hematocrit (Bld) [Volume fraction] 40.3 % Normal 36.3-47.1 [facility] Comment on above: Performed By: #### C DP #### [facility] [address] [place], [place] 4563983 [employer] Operator: Lakhwinder Tim MD Hemoglobin (Bld) [Mass/Vol] 12.9 g/dL Normal 11.9-15.1 [facility] Comment on above: Performed By: #### C DP #### [facility] [address] [place] [address] [employer] Up Operator: Lakhwinder Tim MD Immature granulocytes/100 WBC (Bld) 0 % Normal 0 [facility] Comment on above: Performed By: #### C DP #### [facility] [address] [place], [facility]83 [employer] Operator: Lakhwinder Tim MD Lymphocytes (Bld) [#/Vol] 1.81 10*3/uL Normal 1.10-3.70 [facility] Comment on above: Performed By: #### C DP #### [facility] [address] [place] [address] Dr[place], [facility]83 [employer] Operator: Lakhwinder Tim MD Lymphocytes/100 WBC (Bld) 38 % Normal 24-43 [facility] Comment on above: Performed By: #### C DP #### [address] [place], [place] 9529483 [employer] Up Operator: Lakhwinder Tim MD MCH (RBC) [Entitic mass] 27.9 pg Normal 25.2-33.5 [facility] Comment on above: Performed By: #### C DP #### [facility] [address] [place], [place] 9312083 [employer] Up Operator: Lkahwinder Tim MD MCHC (RBC) [Mass/Vol] 32.0 g/dL Normal 28.4-34.8 [facility] Comment on above: Performed By: #### C DP #### [facility] [address] [place] [address] [employer] Gener[employer] Set Up Operator: Lakhwinder Tim MD MCV (RBC) [Entitic vol] 87.0 fL Normal 82.6-102.9 [facility] Comment on above: Performed By: #### C DP #### [facility] [address] [place], [place] 5684083 [employer] Up Operator: Lakhwinder Tim MD Monocytes (Bld) [#/Vol] 0.27 10*3/uL Normal 0.10-1.20 [facility] Comment on above: Performed By: #### C DP #### [facility] [address] [place] [address] [employer] Up Operator: Lakhwinder Tim MD Monocytes/100 WBC (Bld) 6 % Normal 3-12 [facility] Comment on above: Performed By: #### C DP #### [address] [place], [place] [phone] [employer] Up Operator: Lakhwinder Tim MD Neutrophil (Seg) 53 % Normal 36-65 [facility] Comment on above: Performed By: #### C DP #### [address] [place], [place] [phone] [employer] Up Operator: Lakhwinder Tim MD NRBC Automated 0.0 per 100 WBC Normal 0.0 [facility] Comment on above: Performed By: #### C DP #### [address] [place], [facility]83 [employer] Up Operator: Lakhwinder Tim MD Platelet mean volume (Bld) [Entitic vol] 9.9 fL Normal 8.1-13.5 [facility] Comment on above: Performed By: #### C DP #### [address] [place], [place] [phone] [employer] Up Operator: Lakhwinder Tim MD Platelets (Bld) [#/Vol] 259 10*3/uL Normal 138-453 [facility] Comment on above: Performed By: #### C DP #### [facility] [address] [place], [place] 5527283 [employer] Set Up Operator: Lakhwinder Tim MD RBC (Bld) [#/Vol] 4.63 10*6/uL Normal 3.95-5.11 [facility] Comment on above: Performed By: #### C DP #### [facility] [address] [place] [address] [employer] Gener[employer] Set Up Operator: Lakhwinder Tim MD WBC (Bld) [#/Vol] 4.8 10*3/uL Normal 3.5-11.3 [facility] Comment on above: Performed By: #### C DP #### [facility] [address] [place] [address] [employer] Gener[employer] Set Up Operator: Lakhwinder Tim MD CT ABDOMEN PELVIS W [...] COMPARISON: None HISTORY: ORDERING SYSTEM PROVIDED HISTORY: [facility] abdominal pain TECHNOLOGIST PROVIDED HISTORY: [facility] abdominal pain Decision Support Exception - [...] Opal Henry MD 04/02/24 Final result Normal [facility] Comp Metabolic Profon 2023 Albumin [Mass/Vol] 4.7 g/dL Normal 3.5-5.2 [facility] Comment on above: Performed By: #### U MICAO, UAX #### [facility] [address] [place] [address] [employer] Gener[employer] Set Up Operator: Lakhwinder Tim MD Albumin/Glob Ratio 1.6 Normal 1.0-2.5 [facility] Comment on above: Performed By: #### U MICAO, UAX #### [facility] [address] [place], [place] 4948883 [employer] Up Operator: Lakhwinder Tim MD Alkaline Phos 60 U/L Normal 35-104 [facility] Comment on above: Performed By: #### U MICAO, UAX #### [facility] [address] [place], [place] 4692283 [employer] Up Operator: Lakhwinder Tim MD ALT [Catalytic activity/Vol] 9 U/L Low 10-35 [facility] Comment on above: Performed By: #### U MICAO, UAX #### [address] [place], [place] 4945583 [employer] Up Operator: Lakhwinder Tim MD Anion gap [Moles/Vol] 9 mmol/L Normal 9-16 [facility] Comment on above: Performed By: #### U MICAO, UAX #### [facility] [address] [place], [place] 0630383 [employer] Set Up Operator: Lakhwinder Tim MD AST [Catalytic activity/Vol] 16 U/L Normal 10-35 [facility] Comment on above: Performed By: #### U MICAO, UAX #### [facility] [address] [place] [address] [employer] Generator Set Up Operator: Lakhwinder Tim MD Bilirubin [Mass/Vol] 0.3 mg/dL Normal 0.00-1.20 [facility] Comment on above: Performed By: #### U MICAO, UAX #### [facility] [address] [place], [place] 5328483 [employer] Gener[employer] Set Up Operator: Lakhwinder Tim MD BUN/CRE Ratio 12 Normal 9-20 [facility] Comment on above: Performed By: #### U MICAO, UAX #### [facility] [address] [place], [place] 5636083 [employer] Up Operator: Lakhwinder Tim MD Calcium [Mass/Vol] 9.4 mg/dL Normal 8.6-10.4 [facility] Comment on above: Performed By: #### U MICAO, UAX #### [facility] [address] [place], [place] 0729183 [employer] Up Operator: Lakhwinder Tim MD Chloride [Moles/Vol] 104 mmol/L Normal 98-107 [facility] Comment on above: Performed By: #### U OSMINO, UAX #### [facility] [address] [place] [address] [employer] Gener[employer] Set Up Operator: Lakhwinder Tim MD CO2 [Moles/Vol] 26 mmol/L Normal 20-31 [facility] Comment on above: Performed By: #### U OSMINO, UAX #### [facility] [address] [place] [address] [employer] Generator Set Up Operator: Lakhwinder Tim MD Creatinine [Mass/Vol] 0.5 mg/dL Normal 0.50-0.90 [facility] Comment on above: Performed By: #### U OSMINO, UAX #### [facility] [address] [place] [address] [employer] Gener[employer] Set Up Operator: Lakhwinder Tim MD GFR/1.73 sq M.predicted among non-blacks MDRD (S/P/Bld) [Vol rate/Area] mL/min/{1.73_m2} Normal >60 [facility] Comment on above: Result Comment: These results [...] renal tubular secretion. Performed By: #### U KARINA, UAX #### [facility] [address] [place], [place] 0287283 [employer] Set Up Operator: Lakhwinder Tim MD Glucose [Mass/Vol] 88 mg/dL Normal 74-99 [facility] Comment on above: Performed By: #### U KARINA UAX #### [address] [place], [place] 9578583 [employer] Up Operator: Lakhwinder Tim MD Potassium [Moles/Vol] 3.7 mmol/L Normal 3.7-5.3 [facility] Comment on above: Performed By: #### Josesito COLLINS UAX #### [address] [place] [address] [employer] Gener[employer] Set Up Operator: Lakhwinder Tim MD Protein [Mass/Vol] 7.8 g/dL Normal 6.6-8.7 [facility] Comment on above: Performed By: #### Josesito COLLINS UAX #### [address] [place], [place] 9656083 [employer] Up Operator: Lakhwinder Tim MD Sodium [Moles/Vol] 139 mmol/L Normal 136-145 [facility] Comment on above: Performed By: #### U KARINA UAX #### [facility] [address] [place] [address] [place] [address] [employer] Gener[employer] Set Up Operator: Lakhwinder Tim MD Urea nitrogen [Mass/Vol] 6 mg/dL Normal 6-20 [facility] Comment on above: Performed By: #### U OSMINO, UAX #### [facility] [address] [place] [address] [employer] Gener[employer] Set Up Operator: Lakhwinder Tim MD [facility] Metabolic [facility] 04-02-2024 Albumin [Mass/Vol] 4.7 g/dL 3.5 - 5.2 g/dL [facility] Albumin/Globulin [Mass ratio] 1.6 {ratio} 1.0 - 2.5 [facility] ALP [Catalytic activity/Vol] 60 U/L 35 - 104 U/L [facility] ALT [Catalytic activity/Vol] 9 U/L Low 10 - 35 U/L [facility] Anion gap [Moles/Vol] 9 mmol/L 9 - 16 mmol/L [facility] AST [Catalytic activity/Vol] 16 U/L 10 - 35 U/L [facility] Bilirubin [Mass/Vol] 0.3 mg/dL 0.00 - 1.20 mg/dL [facility] Calcium [Mass/Vol] 9.4 mg/dL 8.6 - 10. 4 mg/dL [facility] Chloride [Moles/Vol] 104 mmol/L 98 - 10 7 mmol/L [facility] CO2 [Moles/Vol] 26 mmol/L 20 - 31 mmol/L [facility] Creatinine [Mass/Vol] 0.5 mg/dL 0.50 - 0.90 mg/dL [facility] Est, Glojanessa Carnest Rate - PINF [facility] Comment on above: These results are not [...] 88 mg/dL 74 - 99 mg/dL [facility] Interpretation and review of laboratory results Abnormal [facility] Potassium [Moles/Vol] 3.7 mmol/L 3.7 - 5.3 mmol/L [facility] Protein [Mass/Vol] 7.8 g/dL 6.6 - 8.7 g/dL [facility] Sodium [Moles/Vol] 139 mmol/L 136 - 145 mmol/L [facility] Urea nitrogen [Mass/Vol] 6 mg/dL 6 - 20 mg/dL [facility] Urea nitrogen/Creatinine [Mass ratio] 12 mg/mg 9 - 20 [facility] Lactic Acidon 04-02-2024 Lactate [Moles/Vol] 1.4 mmol/L Normal 0.5-2.2 [facility] Comment on above: Performed By: #### U OSMINO UAX #### [facility] [address] [place] [address] [employer] Generator Set Up Operator: Lakhwinedr Tim MD Lactate (BldV) [Moles/Vol] 1.4 mmol/L 0.5 - 2.2 mmol/L [facility] Microscopic Urinalysison Epithelial cells LM.HPF (Urine sed) [#/Area] 0 TO 2 [facility] RBC LM.HPF (Urine sed) [#/Area] 0 TO 2 [facility] WBC LM.HPF (Urine sed) [#/Area] 0 TO 2 [facility] UA w/Reflex Cultureon 2023 Bilirubin, SemiQt,Ur Negative Normal NEG [facility] Comment on above: Performed By: #### U KARINA UAX #### [facility] [address] [place] [address] [employer] Generator Set Up Operator: Lakhwinder Tim MD Blood, Urine Negative Normal NEG [facility] Comment on above: Performed By: #### U KARINA UAX #### [facility] [address] [place] [address] [employer] Generator Set Up Operator: Lakhwinder Tim MD Clarity (U) Clear Normal CLEAR [facility] Comment on above: Performed By: #### U OSMINO UAX #### [facility] [address] [place] [address] Dr. [place], [place] [phone] [employer] Set Up Operator: Lakhwinder Tim MD Color (U) Yellow Normal YEL [facility] Comment on above: Performed By: #### U MICAO, UAX #### [facility] [address] [place] [address] Dr. [place], [place] [phone] [employer] Set Up Operator: Lakhwinder Tim MD Glucose Ql (U) Negative Normal NEG [facility] Comment on above: Performed By: #### U MICAO, UAX #### [facility] [address] [place] [address] [place] [address] [employer] Set Up Operator: Lakhwinder Tim MD Ketones Ql (U) Negative Normal NEG [facility] Comment on above: Performed By: #### U MICAO, UAX #### [address] [place], [place] [phone] [employer] Set Up Operator: Lakhwinder Tim MD Leukocyte esterase Test strip Ql (U) Negative Normal NEG [facility] Comment on above: Performed By: #### U MICAO, UAX #### [address] [place] [address] [employer] Set Up Operator: Lakhwinder Tim MD Nitrite,Ur Negative Normal [facility] Comment on above: Performed By: #### U MICAO, UAX #### [facility] [address] [place] [address] Dr. [place], [place] 0113483 [employer] Up Operator: Lakhwinder Tim MD PH,Ur 8.0 Normal 5.0-9.0 [facility] Comment on above: Performed By: #### U MICAO, UAX #### [facility] [address] [place] [address] Dr[place], [place] [phone] [employer] Set Up Operator: Lakhwinder Tim MD Protein Ql (U) Negative Normal NEG [facility] Comment on above: Performed By: #### U MICAO, UAX #### [facility] [address] [place] [address] [place] [address] [employer] Set Up Operator: Lakhwinder Tim MD Spec. [place],Ur 1.020 Normal 1.010-1.020 [facility] Comment on above: Performed By: #### U MICAO, UAX #### [facility] [address] [place] [address] [employer] Generator Set Up Operator: Lakhwinder Tim MD Urobilinogen,Ur Normal Normal 0.0-1.0 [facility] Comment on above: Performed By: #### U MICAO, UAX #### [facility] [address] [place] [address] [employer] Set Up Operator: Lakhwinder Tim MD US NON OB TRANSVAGINAL [...] Yasir Bertrand MD 04/02/24 Final result Normal [facility] US Pelvis transvaginalon 1. Patient status po st hysterectomy. 2. Unremarkable sonographic appearance of the left ovary, without evidence of torsion or mass. 3. No evidence of right ovarian torsion or solid mass. Persistent 3.5 cm complex cystic lesion with the right adnexa, most likely a benign ovarian hemorrhagic cyst, requiring no further follow-up given size of the lesion and patient's premenopausal status. [facility] EXAMINATION: TRANSVAGINAL PELVIC ULTRASOUND WITH DOPPLER [...] Free Fluid: No evidence of free fluid. [facility] Yasir Bertrand MD - 04/02/2024 EXAMINATION: [...] of the lesion and patient's premenopausal status. [facility] Radiology Study observation (narrative) [facility] US Pelvis transvaginalOrdere d By: Yasir Bertrand on 04-02-2024 [facility] Work Phone: Urinalysis with Reflex to Cu ltureon 04-02-2024 Bilirubin Ql (U) Negative NEGATIVE [employer] [facility] Clarity (U) Clear Clear [facility] Color (U) Yellow Yellow [facility] Glucose Test strip (U) [Mass/Vol] Negative NEGATIVE mg/dL [facility] Hemoglobin Auto test strip Ql (U) Negative NEGATIVE [facility] Ketones (U) [Mass/Vol] Negative NEGATIVE mg/dL [facility] Leukocyte esterase Test strip Ql (U) Negative NEGATIVE [facility] Nitrite Ql (U) Negative NEGATIVE [facility] pH (U) 8.0 [pH] 5.0 - 9.0 [facility] Protein (U) [Mass/Vol] Negative NEGATIVE mg/dL [facility] Specific gravity (U) [Rel density] 1.020 1.010 - 1.020 [facility] Urobilinogen Qn (U) Normal 0.0 - 1. 0 EU/dL [facility] Urinalysis,Microon 4 Epithelial cells LM Ql (Urine sed) 0 TO 2 Normal 0-25 [facility] Comment on above: Performed By: #### Josesito COLLINS UAX #### [facility] [address] [place] [address] [place] [address] [employer] Set Up Operator: Lakhwinder Tim MD Urine RBC's 0 TO 2 Normal 0-2 [facility] Comment on above: Performed By: #### Josesito COLLINS UAX #### [facility] [address] [place] [address] [employer] Up Operator: Lakhwinder Tim MD Urine WBC's 0 TO 2 Normal 0-5 [facility] Comment on above: Performed By: #### Josesito COLLINS UAX #### [facility] [address] [place] [address] [employer] Operator: Lakhwinder Tim MD CBC with Diffon 03-17-2024 Basophils (Bld) [#/Vol] [facility] Basophils/100 WBC (Bld) 0 % 0 - 2 % [facility] Eosinophils (Bld) [#/Vol] 0.08 10*3/uL [facility] Eosinophils/100 WBC (Bld) 2 % 1 - 4 % [facility] Erythrocyte distribution width (RBC) [Ratio] 13.6 % 11.8 - 14.4 % [facility] Hematocrit (Bld) [Volume fraction] 35.9 % Low 36.3 - 47.1 % [facility] Hemoglobin (Bld) [Mass/Vol] 12.0 g/dL 11.9 - 15.1 g/dL [facility] Immature granulocytes (Bld) [#/Vol] [facility] Immature granulocytes/100 WBC (Bld) 0 % 0 [facility] Interpretation and review of laboratory results Abnormal [facility] Lymphocytes/100 WBC (Bld) 37 % 24 - 43 % [facility] Lymphocytes/100 WBC (Bld) 1.59 % [facility] MCH (RBC) [Entitic mass] 28.5 pg 25.2 - 33.5 pg [facility] MCHC (RBC) [Mass/Vol] 33.4 g/dL 28.4 - 34.8 g/dL [facility] MCV (RBC) [Entitic vol] 85.3 fL 82.6 - 102.9 fL [facility] Monocytes/100 WBC (Bld) 8 % 3 - 12 % [facility] Monocytes/100 WBC (Bld) 0.32 % [facility] Neutrophils/100 WBC (Bld) 53 % 36 - 65 % [facility] Nucleated RBC/100 WBC (Bld) [Ratio] 0.0 % 0.0 per 100 WBC [facility] Platelet mean volume (Bld) [Entitic vol] 10.6 fL 8.1 - 13.5 fL [facility] Platelets (Bld) [#/Vol] 202 10*3/uL [facility] RBC (Bld) [#/Vol] 4.21 10*6/uL 3.95 - 5.1 1 m/uL [facility] Segmented neutrophils/100 WBC (Bld) 2.26 % [facility] WBC other (Bld) [#/Vol] 4.3 [facility] Abs. Basophil <0.03 Normal 0.00-0.20 [facility] Comment on above: Performed By: #### C P, LIP, CDP #### [address] [place], [facility]83 [employer] Operator: Lakhwinder Tim MD Abs.Imm.Granulocyte <0.03 Normal 0.00-0.30 [facility] Comment on above: Performed By: #### C P, LIP, CDP #### [address] [place], [facility]83 [employer] Operator: Lakhwinder Tim MD Abs.Neutrophil (Seg) 2.26 k/uL Normal 1.50-8.10 [facility] Comment on above: Performed By: #### C P, LIP, CDP #### [address] [place] [address] [employer] Operator: Lakhwinder Tim MD Basophils/100 WBC (Bld) 0 % Normal 0-2 [facility] Comment on above: Performed By: #### C P, LIP, CDP #### [address] [place], [place] [address] [employer] Operator: Lakhwinder Tim MD Eosinophils (Bld) [#/Vol] 0.08 10*3/uL Normal 0.00-0.44 [facility] Comment on above: Performed By: #### C P, LIP, CDP #### [address] [place], [facility]83 [employer] Operator: Lakhwnider Tim MD Eosinophils/100 WBC (Bld) 2 % Normal 1-4 [facility] Comment on above: Performed By: #### C P, LIP, CDP #### [address] [place], [facility]83 [employer] Operator: Lakhwinder Tim MD Erythrocyte distribution width (RBC) [Ratio] 13.6 % Normal 11.8-14.4 [facility] Comment on above: Performed By: #### C P, LIP, CDP #### [address] [place] [id number] [employer] Up Operator: Lakhwinder Tim MD Hematocrit (Bld) [Volume fraction] 35.9 % Low 36.3-47.1 [facility] Comment on above: Performed By: #### C P, LIP, CDP #### [facility] [address] [place] [facility] [employer] Operator: Lakhwinder Tim MD Hemoglobin (Bld) [Mass/Vol] 12.0 g/dL Normal 11.9-15.1 [facility] Comment on above: Performed By: #### C P, LIP, CDP #### [address] [place] [address] [employer] Operator: Lakhwinder Tim MD Immature granulocytes/100 WBC (Bld) 0 % Normal 0 [facility] Comment on above: Performed By: #### C P, LIP, CDP #### [address] [place], [place] [address] [employer] Operator: Lakhwinder Tim MD Lymphocytes (Bld) [#/Vol] 1.59 10*3/uL Normal 1.10-3.70 [facility] Comment on above: Performed By: #### C P, LIP, CDP #### [address] [place] [id number] [employer] Up Operator: Lakhwinder Tim MD Lymphocytes/100 WBC (Bld) 37 % Normal 24-43 [facility] Comment on above: Performed By: #### C P, LIP, CDP #### [facility] [address] [place], [facility]83 [employer] Operator: Lakhwinder Tim MD MCH (RBC) [Entitic mass] 28.5 pg Normal 25.2-33.5 [facility] Comment on above: Performed By: #### C P, LIP, CDP #### [facility] [address] [place] [facility]83 [employer] Up Operator: Lakhwinder Tim MD MCHC (RBC) [Mass/Vol] 33.4 g/dL Normal 28.4-34.8 [facility] Comment on above: Performed By: #### C P, LIP, CDP #### [address] [place], [place] [phone] [employer] Operator: Lakhwinder Tim MD MCV (RBC) [Entitic vol] 85.3 fL Normal 82.6-102.9 [facility] Comment on above: Performed By: #### C P, LIP, CDP #### [address] [place] [address] [employer] Up Operator: Lakhwinder Tim MD Monocytes (Bld) [#/Vol] 0.32 10*3/uL Normal 0.10-1.20 [facility] Comment on above: Performed By: #### C P LIP, CDP #### [address] [place] [address] [employer] Up Operator: Lakhwinder Tim MD Monocytes/100 WBC (Bld) 8 % Normal 3-12 [facility] Comment on above: Performed By: #### C P LIP, CDP #### [address] [place], [place] [phone] [employer] Operator: Lakhwinder Tim MD Neutrophil (Seg) 53 % Normal 36-65 [facility] Comment on above: Performed By: #### C P, LIP, CDP #### [address] [place] [address] [employer] Operator: Lakhwinder Tim MD NRBC Automated 0.0 per 100 WBC Normal 0.0 [facility] Comment on above: Performed By: #### C P LIP, CDP #### [address] [place], [place] 7882283 [employer] Operator: Lakhwinder Tim MD Platelet mean volume (Bld) [Entitic vol] 10.6 fL Normal 8.1-13.5 [facility] Comment on above: Performed By: #### C P, LIP, CDP #### [facility] [address] [place], [place] 1043783 [employer] Operator: Lakhwinder Tim MD Platelets (Bld) [#/Vol] 202 10*3/uL Normal 138-453 [facility] Comment on above: Performed By: #### C P, LIP, CDP #### [facility] [address] [place], [place] [phone] [employer] Operator: Lakhwinder Tim MD RBC (Bld) [#/Vol] 4.21 10*6/uL Normal 3.95-5.11 [facility] Comment on above: Performed By: #### C P, LIP, CDP #### [facility] [address] [place], [place] [phone] [employer] Up Operator: Lakhwinder Tim MD WBC (Bld) [#/Vol] 4.3 10*3/uL Normal 3.5-11.3 [facility] Comment on above: Performed By: #### C P, LIP, CDP #### [facility] [address] [place] [address] [employer] Up Operator: Lakhwinder Tim MD [facility] 03-17-2024 Albumin [Mass/Vol] 4.4 g/dL 3.5 - 5.2 g/dL [facility] Albumin/Globulin [Mass ratio] 1.4 {ratio} 1.0 - 2.5 [facility] ALP [Catalytic activity/Vol] 66 U/L 35 - 104 U/L [facility] ALT [Catalytic activity/Vol] 9 U/L Low 10 - 35 U/L [facility] Anion gap [Moles/Vol] 9 mmol/L 9 - 16 mmol/L [facility] AST [Catalytic activity/Vol] 18 U/L 10 - 35 U/L [facility] Bilirubin [Mass/Vol] mg/dL 0.00 - 1.20 mg/dL [facility] Calcium [Mass/Vol] 9.2 mg/dL 8.6 - 10. 4 mg/dL [facility] Chloride [Moles/Vol] 104 mmol/L 98 - 10 7 mmol/L [facility] CO2 [Moles/Vol] 24 mmol/L 20 - 31 mmol/L [facility] Creatinine [Mass/Vol] 0.6 mg/dL 0.50 - 0.90 mg/dL [facility] [employer] [facility] Comment on above: These results are not [...] [Mass/Vol] 86 mg/dL 74 - 99 mg/dL [facility] Interpretation and review of laboratory results Abnormal [facility] Potassium [Moles/Vol] 3.8 mmol/L 3.7 - 5.3 mmol/L [facility] Protein [Mass/Vol] 7.6 g/dL 6.6 - 8.7 g/dL [facility] Sodium [Moles/Vol] 137 mmol/L 136 - 145 mmol/L [facility] Urea nitrogen [Mass/Vol] 9 mg/dL 6 - 20 mg/dL [facility] Urea nitrogen/Creatinine [Mass ratio] 15 mg/mg 9 - [address] [facility] [address] ABDOMEN PELVIS W IV CONTR Marichuy [...] COMPARISON: 02/07/2024 HISTORY: ORDERING SYSTEM PROVIDED HISTORY: [facility] pain TECHNOLOGIST PROVIDED HISTORY: [facility] pain Decision Support Exception - unselect [...] Wily Kumar MD 03/17/24 Final result Normal [facility] CT Abdomen and Pelvis W cont rast Alexsander 03-17-2024 1. No direct evidenc e for acute infective or inflammatory process. 2. A 4.8 cm right adnexal cyst was previously 2.4 cm. Size and features would support benign functional cyst. Pelvic ultrasound may be considered in light of change in size, patient sentence and fat stranding. [facility] CONSOLID[facility] EXAMINATION: CT OF THE ABDOMEN [...] COMPARISON: 02/07/2024 HISTORY: ORDERING SYSTEM PROVIDED HISTORY: [facility] pain TECHNOLOGIST PROVIDED HISTORY: [facility] pain Decision Support Exception - unselect [...] superficial soft tissues show no acute process. [facility] CON[facility] Wily Kumar MD - 03/17/2024 EXAMINATION: CT OF THE [...] COMPARISON: 02/07/2024 HISTORY: ORDERING SYSTEM PROVIDED HISTORY: [facility] pain TECHNOLOGIST PROVIDED HISTORY: [facility] pain Decision Support Exception - unselect [...] in size, patient sentence and fat stranding. [facility] Radiology Study observation (narrative) [facility] CT Abdomen and Pelvis W cont rast IVOrdered By: Wily Kumar on 03-17-2024 [facility] Work Phone: Comp Metabolic Profon 2023 Albumin [Mass/Vol] 4.4 g/dL Normal 3.5-5.2 [facility] Comment on above: Performed By: #### C P, LIP, CDP #### [facility] [address] [place], [place] [phone] [employer] Operator: Lakhwinder Tim MD Albumin/Glob Ratio 1.4 Normal 1.0-2.5 [facility] Comment on above: Performed By: #### C P, LIP, CDP #### [facility] [address] [place] [address] [employer] Operator: Lakhwinder Tim MD Alkaline Phos 66 U/L Normal 35-104 [facility] Comment on above: Performed By: #### C P, LIP, CDP #### [facility] [address] [place] [address] [employer] Up Operator: Lakhwinder Tim MD ALT [Catalytic activity/Vol] 9 U/L Low 10-35 [facility] Comment on above: Performed By: #### C P, LIP, CDP #### [facility] [address] [place] [address] [employer] Operator: Lakhwinder Tim MD Anion gap [Moles/Vol] 9 mmol/L Normal 9-16 [facility] Comment on above: Performed By: #### C P, LIP, CDP #### [facility] [address] [place], [place] 1083983 [employer] Up Operator: Lakhwinder Tim MD AST [Catalytic activity/Vol] 18 U/L Normal 10-35 [facility] Comment on above: Performed By: #### C P, LIP, CDP #### [facility] [address] [place] [address] [employer] Up Operator: Lakhwinder Tim MD Bilirubin [Mass/Vol] mg/dL Normal 0.00-1.20 [facility] Comment on above: Performed By: #### C P, LIP, CDP #### [facility] [address] [place], [place] 4753983 [employer] Up Operator: Lakhwinder Tim MD BUN/CRE Ratio 15 Normal 9-20 [facility] Comment on above: Performed By: #### C P, LIP, CDP #### [facility] [address] [place], [place] [address]261783 [employer] Up Operator: Lakhwinder Tim MD Calcium [Mass/Vol] 9.2 mg/dL Normal 8.6-10.4 [facility] Comment on above: Performed By: #### C P, LIP, CDP #### [address] [place], [place] [phone] [employer] Up Operator: Lakhwinder Tim MD Chloride [Moles/Vol] 104 mmol/L Normal 98-107 [facility] Comment on above: Performed By: #### C P, LIP, CDP #### [facility] [address] [place] [address] [place] [place], [place] 9311283 [employer] Operator: Lakhwinder Tim MD CO2 [Moles/Vol] 24 mmol/L Normal 20-31 [facility] Comment on above: Performed By: #### C P, LIP, CDP #### [facility] [address] [place] [address] [employer] Up Operator: Lakhwinder Tim MD Creatinine [Mass/Vol] 0.6 mg/dL Normal 0.50-0.90 [facility] Comment on above: Performed By: #### C P, LIP, CDP #### [facility] [address] [place] [address] [place] [address] [employer] Up Operator: Lakhwinder Tim MD GFR/1.73 sq M.predicted among non-blacks MDRD (S/P/Bld) [Vol rate/Area] mL/min/{1.73_m2} Normal >60 [facility] Comment on above: Result Comment: These results [...] By: #### C P, LIP, CDP #### [address] [place] [address] [employer] Up Operator: Lakhwinder Tim MD Glucose [Mass/Vol] 86 mg/dL Normal 74-99 [facility] Comment on above: Performed By: #### C P, LIP, CDP #### [address] [place] [address] [employer] Up Operator: Lakhwinder Tim MD Potassium [Moles/Vol] 3.8 mmol/L Normal 3.7-5.3 [facility] Comment on above: Performed By: #### C P, LIP, CDP #### [address] [place] [address] [employer] Up Operator: Lakhwinder Tim MD Protein [Mass/Vol] 7.6 g/dL Normal 6.6-8.7 [facility] Comment on above: Performed By: #### C P, LIP, CDP #### [address] [place] [address] [employer] Up Operator: Lakhwinder Tim MD Sodium [Moles/Vol] 137 mmol/L Normal 136-145 [facility] Comment on above: Performed By: #### C P, LIP, CDP #### [address] [place] [address] [employer] Up Operator: Lakhwinder Tim MD Urea nitrogen [Mass/Vol] 9 mg/dL Normal 6-20 [facility] Comment on above: Performed By: #### C P LIP, CDP #### [address] [place], [place] [phone] [employer] Up Operator: Lakhwinder Tim MD Lactic Acidon 03-17-2024 Lactate (BldV) [Moles/Vol] 0.9 mmol/L 0.5 - 2.2 mmol/L [facility] Lactate [Moles/Vol] 0.9 mmol/L Normal 0.5-2.2 [facility] Comment on above: Performed By: #### C P LIP, CDP #### [address] [place] [address] [employer] Set Up Operator: Lakhwinder Tim MD Lipaseon 03-17-2024 Lipase [Catalytic activity/Vol] 17 U/L 13 - 60 U/L [facility] Lipase [Catalytic activity/Vol] 17 U/L Normal 13-60 [facility] Comment on above: Performed By: #### C TOM Mckeon, CDP #### [address] [place] [address] [employer] Up Operator: Lakhwinder Tim MD Microscopic Urinalysison Epithelial cells LM.HPF (Urine sed) [#/Area] 0 TO 2 [facility] RBC LM.HPF (Urine sed) [#/Area] 0 TO 2 [facility] WBC LM.HPF (Urine sed) [#/Area] None [facility] No Panel Informationon 03-17 [facility] UA w/Reflex Cultureon 2023 Bilirubin, SemiQt,Ur Negative Normal NEG [facility] Comment on above: Performed By: #### C DP #### [facility] [address] [place] [address] [place] [address] [employer] Set Up Operator: Lakhwinder Tim MD Blood, Urine TRACE Abnormal NEG [facility] Comment on above: Performed By: #### C DP #### [facility] [address] [place] [address] [place] [address] [employer] Set Up Operator: Lakhwinder Tim MD Clarity (U) Clear Normal CLEAR [facility] Comment on above: Performed By: #### C DP #### [facility] [address] [place] [address] [place] [place], [place] 1384283 [employer] Up Operator: Lakhwinder Tim MD Color (U) Yellow Normal YEL [facility] Comment on above: Performed By: #### C DP #### [address] [place], [place] 18[address]83 [employer] Up Operator: Lakhwinder Tim MD Glucose Ql (U) Negative Normal NEG [facility] Comment on above: Performed By: #### C DP #### [facility] [address] [place] [address] [place], [place] [phone] [employer] Up Operator: Lakhwinder Tim MD Ketones Ql (U) Negative Normal NEG [facility] Comment on above: Performed By: #### C DP #### [address] [place], [place] 1876683 [employer] Up Operator: Lakhwinder Tim MD Leukocyte esterase Test strip Ql (U) Negative Normal NEG [facility] Comment on above: Performed By: #### C DP #### [facility] [address] [place] [address] [place], [place] 5529083 [employer] Up Operator: Lakhwinder Tim MD Nitrite,Ur Negative Normal NEG [facility] Comment on above: Performed By: #### C DP #### [facility] [address] [place] [address] [place] [address] [employer] Set Up Operator: Lakhwinder Tim MD PH,Ur 6.5 Normal 5.0-9.0 [facility] Comment on above: Performed By: #### C DP #### [facility] [address] [place] [address] [employer] Set Up Operator: Lakhwinder Tim MD Protein Ql (U) Negative Normal NEG [facility] Comment on above: Performed By: #### C DP #### [facility] [address] [place], [place] [address]83 [employer] Up Operator: Lakhwinder Tim MD Spec. [place],Ur 1.015 Normal 1.010-1.020 [facility] Comment on above: Performed By: #### C DP #### [facility] [address] [place] [address] [employer] Set Up Operator: Lakhwinder Tim MD Urobilinogen,Ur Normal Normal 0.0-1.0 [facility] Comment on above: Performed By: #### C DP #### [facility] [address] [place], [place] 1434483 [employer] Up Operator: Lakhwinder Tim MD US NON OB TRANSVAGINAL [...] Carlos Tatum MD 03/17/24 Final result Normal [facility] Urinalysis with Reflex to Cu ltureon 03-17-2024 Bilirubin Ql (U) Negative [facility]IVE [facility] Glucose Test strip (U) [Mass/Vol] Negative NEGATIVE mg/dL [facility] Hemoglobin Auto test strip Ql (U) TRACE Abnormal NEGATIVE [facility] Interpretation and review of laboratory results Abnormal [facility] Ketones (U) [Mass/Vol] Negative NEGATIVE mg/dL [facility] Nitrite Ql (U) Negative NEGATIVE [facility] pH (U) 6.5 [pH] 5.0 - 9.0 [facility] Protein (U) [Mass/Vol] Negative NEGATIVE mg/dL [facility] Specific gravity (U) [Rel density] 1.015 1.010 - 1.020 [facility] Urobilinogen Qn (U) Normal 0.0 - 1. 0 EU/dL [facility] Urinalysis,Microon 4 Epithelial cells LM Ql (Urine sed) 0 TO 2 Normal 0-25 [facility] Comment on above: Performed By: #### C DP #### [facility] [address] [place] [address] [employer] Set Up Operator: Lakhwinder Tim MD Urine RBC's 0 TO 2 Normal 0-2 [facility] Comment on above: Performed By: #### C DP #### [facility] [address] [place] [address] [employer] Set Up Operator: Lakhwinder Tim MD Urine WBC's None Normal 0-5 [facility] Comment on above: Performed By: #### C DP #### [facility] [address] [place] [address] [employer] Set Up Operator: Lakhwinder Tim MD [id number] 03-10-2024 SARS-CoV-2 (COVID-19) RNA MARICEL+probe Ql (Unsp spec) Detected Abnormal [facility] Comment on above: Result Comment: Rapid [...] this assay. Fact sheet for Healthcare Providers: https://www.fda.gov/media/012754/download Fact sheet for Patients: https://www.fda.gov/media/825606/download Methodology: Isothermal Nucleic Acid Amplification Results reported to the appropriate Health Department Performed By: #### U JERALD COLLINS #### [facility] [address] [place] [address] [employer] Up Operator: Lakhwinder Tim MD BLOOD CULTUREon 02-07-2024 Bacteria identified Aer cx Nom (Bld) SPECIMEN NOTES SUBOPTIMAL VOLUME OF BLOOD COLLECTED, RESULTS MAY BE AFFECTED. CULTURE RESULTS NO GROWTH 5 DAYS Normal [facility] Comment on above: Performed By: #### C BCA, 10940-3, PINR, 32520-1, CMP #### [facility] ([id number]) [address] [place] [address] Bacteria identified Aer cx Nom (Bld) CULTURE RESULTS NO GROWTH 5 DAYS Normal [facility] CBC AND AUTO DIFFon 02-07-20 24 ABSOLUTE BASOPHIL 0.0 X10E9/L Normal 0.0-0.2 [facility] Comment on above: Performed By: #### 2 823-3 #### [facility] ([id number]) [address] [place] [address] ABSOLUTE NEUTROPHIL 3.0 X10E9/L Normal 1.5-6.6 [facility] Comment on above: Performed By: #### 2 823-3 #### [facility] ([id number]) [address] [place] [address] Basophils/100 WBC (Bld) 0.4 % Normal [facility] Comment on above: Performed By: #### 2 823-3 #### [facility] ([id number]) [address] [place] [address] Eosinophils (Bld) [#/Vol] 0.1 10*3/uL Normal 0.0-0.4 [facility] Comment on above: Performed By: #### 2 823-3 #### [facility] ([id number]) [address] [place] [address] Eosinophils/100 WBC (Bld) 1.4 % Normal [facility] Comment on above: Performed By: #### 2 823-3 #### [facility] ([id number]) [address] [place] [address] Erythrocyte distribution width (RBC) [Ratio] 16.3 % High 11.5-15.0 [facility] Comment on above: Performed By: #### 2 823-3 #### [facility] ([id number]) [address] [place] [address] Hematocrit (Bld) [Volume fraction] 32.5 % Low 35-47 [facility] Comment on above: Performed By: #### 2 823-3 #### [facility] ([id number]) [address] [place] [address] Hemoglobin (Bld) [Mass/Vol] 10.8 g/dL Low 11.7-15.5 [facility] Comment on above: Performed By: #### 2 823-3 #### [facility] ([id number]) [address] [place] [address] Lymphocytes (Bld) [#/Vol] 2.2 10*3/uL Normal 1.0-3.5 [facility] Comment on above: Performed By: #### 2 823-3 #### [facility] ([id number]) [address] [place] [address] Lymphocytes/100 WBC (Bld) 39.2 % Normal [facility] Comment on above: Performed By: #### 2 823-3 #### [facility] ([id number]) [address] [place] [address] MCH (RBC) [Entitic mass] 28.2 pg Normal 27-34 [facility] Comment on above: Performed By: #### 2 823-3 #### [facility] ([id number]) [address] [place] [address] MCHC (RBC) [Mass/Vol] 33.4 g/dL Normal 32-36 [facility] Comment on above: Performed By: #### 2 823-3 #### [facility] ([id number]) [address], [address] [place] [address] MCV (RBC) [Entitic vol] 85 fL Normal 80-100 [facility] Comment on above: Performed By: #### 2 823-3 #### [facility] ([id number]) [address], [address] [place] [address] Monocytes (Bld) [#/Vol] 0.4 10*3/uL Normal 0-0.9 [facility] Comment on above: Performed By: #### 2 823-3 #### [facility] ([id number]) [address], [address] [place] [address] Monocytes/100 WBC (Bld) 7.0 % Normal [facility] Comment on above: Performed By: #### 2 823-3 #### [facility] ([id number]) [address], [facility] [address] [place] [address] Neutrophils/100 WBC (Bld) 52.0 % Normal [facility] Comment on above: Performed By: #### 2 823-3 #### [facility] ([id number]) [address] [address] Platelet mean volume (Bld) [Entitic vol] 8.0 fL Normal 7-12 [facility] Comment on above: Performed By: #### 2 823-3 #### [facility] ([id number]) [address] [address] Platelets (Bld) [#/Vol] 224 10*3/uL Normal 150-450 [facility] Comment on above: Performed By: #### 2 823-3 #### [facility] ([id number]) [address], [address] [address] RBC COUNT 3.84 X10E12/L Normal 3.80-5.20 [facility] Comment on above: Performed By: #### 2 823-3 #### [facility] ([id number]) [address], [address] [address] WBC (Bld) [#/Vol] 5.7 10*3/uL Normal 4.0-11.0 [facility] Comment on above: Performed By: #### 2 823-3 #### [facility] ([id number]) [address] [address] CBC with Auto Differentialon 02-07-2024 Basophils (Bld) [#/Vol] [facility] Basophils/100 WBC (Bld) 1 % 0 - 2 % [facility] Eosinophils (Bld) [#/Vol] 0.12 10*3/uL [facility] Eosinophils/100 WBC (Bld) 3 % 1 - 4 % [facility] Erythrocyte distribution width (RBC) [Ratio] 15.0 % High 11.8 - 14.4 % [facility] Hematocrit (Bld) [Volume fraction] 35.2 % Low 36.3 - 47.1 % [facility] Hemoglobin (Bld) [Mass/Vol] 11.4 g/dL Low 11.9 - 15.1 g/dL [facility] Immature granulocytes (Bld) [#/Vol] [facility] Immature granulocytes/100 WBC (Bld) 0 % 0 [facility] Interpretation and review of laboratory results Abnormal [facility] Lymphocytes/100 WBC (Bld) 38 % 24 - 43 % [facility] Lymphocytes/100 WBC (Bld) 1.69 % [facility] MCH (RBC) [Entitic mass] 28.2 pg 25.2 - 33.5 pg [facility] MCHC (RBC) [Mass/Vol] 32.4 g/dL 28.4 - 34.8 g/dL [facility] MCV (RBC) [Entitic vol] 87.1 fL 82.6 - 102.9 fL [facility] Monocytes/100 WBC (Bld) 8 % 3 - 12 % [facility] Monocytes/100 WBC (Bld) 0.36 % [facility] Neutrophils/100 WBC (Bld) 50 % 36 - 65 % [facility] Nucleated RBC/100 WBC (Bld) [Ratio] 0.0 % 0.0 per 100 WBC [facility] Platelet mean volume (Bld) [Entitic vol] 10.3 fL 8.1 - 13.5 fL [facility] Platelets (Bld) [#/Vol] 228 10*3/uL [facility] RBC (Bld) [#/Vol] 4.04 10*6/uL 3.95 - 5.1 1 m/uL [facility] Segmented neutrophils/100 WBC (Bld) 2.23 % [facility] WBC other (Bld) [#/Vol] 4.4 [facility] CBC with Diffon 02-07-2024 Abs. Basophil <0.03 Normal 0.00-0.20 [facility] Comment on above: Performed By: #### C P, LIP, CDP #### [facility] [address] [place], [place] [address] [employer] Operator: Lakhwinder Tim MD Abs.Imm.Granulocyte <0.03 Normal 0.00-0.30 [facility] Comment on above: Performed By: #### C P, LIP, CDP #### [address] [place] [address] [employer] Operator: Lakhwinder Tim MD Abs.Neutrophil (Seg) 2.23 k/uL Normal 1.50-8.10 [facility] Comment on above: Performed By: #### C P, LIP, CDP #### [facility] [address] [place] [address] Dr. [place], [facility] [employer] Operator: Lakhwinder Tim MD Basophils/100 WBC (Bld) 1 % Normal 0-2 [facility] Comment on above: Performed By: #### C P, LIP, CDP #### [address] [place] [address] [employer] Up Operator: Lakhwinder Tim MD Eosinophils (Bld) [#/Vol] 0.12 10*3/uL Normal 0.00-0.44 [facility] Comment on above: Performed By: #### C P, LIP, CDP #### [facility] [address] [place], [place] 2756383 [employer] Operator: Lakhwinder Tim MD Eosinophils/100 WBC (Bld) 3 % Normal 1-4 [facility] Comment on above: Performed By: #### C P, LIP, CDP #### [facility] [address] [place], [place] 8[address]83 [employer] Operator: Lakhwinder Tim MD Erythrocyte distribution width (RBC) [Ratio] 15.0 % High 11.8-14.4 [facility] Comment on above: Performed By: #### C P, LIP, CDP #### [facility] [address] [place], [place] 9907[address] [employer] Operator: Lakhwinder Tim MD Hematocrit (Bld) [Volume fraction] 35.2 % Low 36.3-47.1 [facility] Comment on above: Performed By: #### C P, LIP, CDP #### [facility] [address] [place] [address] [employer] Operator: Lakhwinder iTm MD Hemoglobin (Bld) [Mass/Vol] 11.4 g/dL Low 11.9-15.1 [facility] Comment on above: Performed By: #### C P, LIP, CDP #### [address] [place], [place] [address] [employer] Operator: Lakhwinder Tim MD Immature granulocytes/100 WBC (Bld) 0 % Normal 0 [facility] Comment on above: Performed By: #### C P, LIP, CDP #### [address] [place], [place] 6737483 [employer] Up Operator: Lakhwinder Tim MD Lymphocytes (Bld) [#/Vol] 1.69 10*3/uL Normal 1.10-3.70 [facility] Comment on above: Performed By: #### C P, LIP, CDP #### [facility] [address] [place] [address] [employer] Up Operator: Lakhwinder Tim MD Lymphocytes/100 WBC (Bld) 38 % Normal 24-43 [facility] Comment on above: Performed By: #### C P, LIP, CDP #### [facility] [address] [place], [place] 228[address]83 [employer] Operator: Lakhwinder Tim MD MCH (RBC) [Entitic mass] 28.2 pg Normal 25.2-33.5 [facility] Comment on above: Performed By: #### C P, LIP, CDP #### [address] [place] [address] [employer] Up Operator: Lakhwinder Tim MD MCHC (RBC) [Mass/Vol] 32.4 g/dL Normal 28.4-34.8 [facility] Comment on above: Performed By: #### C P, LIP, CDP #### [address] [place], [place] 1774883 [employer] Operator: Lakhwinder Tim MD MCV (RBC) [Entitic vol] 87.1 fL Normal 82.6-102.9 [facility] Comment on above: Performed By: #### C P, LIP, CDP #### [address] [place], [facility] [employer] Operator: Lakhwinder Tim MD Monocytes (Bld) [#/Vol] 0.36 10*3/uL Normal 0.10-1.20 [facility] Comment on above: Performed By: #### C P LIP, CDP #### [address] [place], [place] 4475883 [employer] Up Operator: Lakhwinder Tim MD Monocytes/100 WBC (Bld) 8 % Normal 3-12 [facility] Comment on above: Performed By: #### C P, LIP, CDP #### [address] [place], [place] 5854683 [employer] Up Operator: Lakhwinder Tim MD Neutrophil (Seg) 50 % Normal 36-65 [facility] Comment on above: Performed By: #### C P, LIP, CDP #### [facility] [address] [place] [address] [employer] Operator: Lakhwinder Tim MD NRBC Automated 0.0 per 100 WBC Normal 0.0 [facility] Comment on above: Performed By: #### C P, LIP, CDP #### [facility] [address] [place], [place] 4958483 [employer] Up Operator: Lakhwinder Tim MD Platelet mean volume (Bld) [Entitic vol] 10.3 fL Normal 8.1-13.5 [facility] Comment on above: Performed By: #### C P, LIP, CDP #### [facility] [address] [place], [place] 6988383 [employer] Up Operator: Lakhwinder Tim MD Platelets (Bld) [#/Vol] 228 10*3/uL Normal 138-453 [facility] Comment on above: Performed By: #### C P, LIP, CDP #### [facility] [address] [place], [place] 818[address]83 [employer] Operator: Lakhwinder Tim MD RBC (Bld) [#/Vol] 4.04 10*6/uL Normal 3.95-5.11 [facility] Comment on above: Performed By: #### C P, LIP, CDP #### [facility] [address] [place], [place] 6563183 [employer] Up Operator: Lakhwinder Tim MD WBC (Bld) [#/Vol] 4.4 10*3/uL Normal 3.5-11.3 [facility] Comment on above: Performed By: #### C P, LIP, CDP #### [facility] [address] [place], [place] 0725883 [employer] Up Operator: Lakhwinder Tim MD COMPREHENSIVE METABOLIC PANE [facility] 02-07-2024 Albumin [Mass/Vol] 3.7 g/dL Normal 3.2-5.3 [facility] Comment on above: Performed By: #### 2 823-3 #### [facility] ([id number]) [address] [place] [address] ALP [Catalytic activity/Vol] 45 U/L Normal 39-130 [facility] Comment on above: Performed By: #### 2 823-3 #### [facility] ([id number]) [address], [address] [place] [address] ALT [Catalytic activity/Vol] 7 U/L Normal 0-31 [facility] Comment on above: Performed By: #### 2 823-3 #### [facility] ([id number]) [address], [address] [place] [address] Anion gap [Moles/Vol] 10 mmol/L Normal 5-15 [facility] Comment on above: Performed By: #### 2 823-3 #### [facility] ([id number]) [address], [address] [place] [address] AST [Catalytic activity/Vol] 12 U/L Normal 0-41 [facility] Comment on above: Performed By: #### 2 823-3 #### [facility] ([id number]) [address], [address] [place] [address] Bilirubin [Mass/Vol] 0.3 mg/dL Normal 0.3-1.2 [facility] Comment on above: Performed By: #### 2 823-3 #### [facility] ([id number]) [address], [address] [place] [address] Calcium [Mass/Vol] 9.1 mg/dL Normal 8.5-10.5 [facility] Comment on above: Performed By: #### 2 823-3 #### [facility] ([id number]) [address], [address] [place] [address] Chloride [Moles/Vol] 107 mmol/L Normal 98-109 [facility] Comment on above: Performed By: #### 2 823-3 #### [facility] ([id number]) [address], [address] [place] [address] CO2 [Moles/Vol] 25 mmol/L Normal 22-32 [facility] Comment on above: Performed By: #### 2 823-3 #### [facility] ([id number]) [address], [address] [place] [address] Creatinine [Mass/Vol] 0.54 mg/dL Normal 0.40-1.00 [facility] Comment on above: Result Comment: METH OD TRACEABLE TO IDMS STANDARD Performed By: #### 2 823-3 #### [facility] ([id number]) [address], [address] [place] [address] eGFR (CKD-EPI) NON-RACE DEPENDENT >90 Normal >59 [facility] Comment on above: Result Comment: Reported eGFR is based on the CKD-EPI 2020 equation that does not use a race coefficient. Performed By: #### 2 823-3 #### [facility] ([id number]) [address], [address] [place] [address] Glucose [Mass/Vol] 96 mg/dL Normal 65-99 [facility] Comment on above: Performed By: #### 2 823-3 #### [facility] ([id number]) [address], [address] [place] [address] Potassium [Moles/Vol] 3.5 mmol/L Normal 3.5-5.0 [facility] Comment on above: Performed By: #### 2 823-3 #### [facility] ([id number]) [address], [address] [place] [address] Protein [Mass/Vol] 7.3 g/dL Normal 6.0-8.0 [facility] Comment on above: Performed By: #### 2 823-3 #### [facility] ([id number]) [address], [address] [place] [address] Sodium [Moles/Vol] 142 mmol/L Normal 134-146 [facility] Comment on above: Performed By: #### 2 823-3 #### [facility] ([id number]) [address], [address] [place] [address] Urea nitrogen [Mass/Vol] 3 mg/dL Low 5-23 [facility] Comment on above: Performed By: #### 2 823-3 #### [facility] ([id number]) [address], [address] [place] [address] CT ABDOMEN PELVIS W IV CONTR Marichuy [...] Carlos Alejo MD 02/07/24 Final result Normal [facility] CT Abdomen and Pelvis W cont rast Alexsander 02-07-2024 No acute abdominopel davi abnormality. [facility] RIS CONSOLIDATED EXAMINATION: CT OF THE ABDOMEN [...] no acute fracture or aggressive osseous lesion. PN RIS CONSOLIDATED Carlos Alejo MD - 02/07/2024 [...] osseous lesion. IMPRESSION: No acute abdominopelvic abnormality. [facility] Radiology Study observation (narrative) [facility] CT Abdomen and Pelvis W cont rast IVOrdered By: Carlos Alejo on 02-07-2024 [facility] Work Phone: Comp Metabolic Profon 2023 Albumin [Mass/Vol] 4.2 g/dL Normal 3.5-5.2 [facility] Comment on above: Performed By: #### C P, LIP, CDP #### [facility] [address] [place] [address] Dr. [place], [place] 1337983 [employer] Operator: Lakhwinder Tim MD Albumin/Glob Ratio 1.2 Normal 1.0-2.5 [facility] Comment on above: Performed By: #### C P, LIP, CDP #### [address] [place], [place] 0356583 [employer] Operator: Lakhwinder Tim MD Alkaline Phos 56 U/L Normal 35-104 [facility] Comment on above: Performed By: #### C P, LIP, CDP #### [address] [place], [place] 0002783 [employer] Up Operator: Lakhwinder Tim MD ALT [Catalytic activity/Vol] 7 U/L Normal 5-33 [facility] Comment on above: Performed By: #### C P, LIP, CDP #### [address] [place], [place] 1376783 [employer] Up Operator: Lakhwinder Tim MD Anion gap [Moles/Vol] 11 mmol/L Normal 9-17 [facility] Comment on above: Performed By: #### C P, LIP, CDP #### [address] [place], [place] 0605183 [employer] Up Operator: Lakhwinder Tim MD AST [Catalytic activity/Vol] 13 U/L Normal <32 [facility] Comment on above: Performed By: #### C P, LIP, CDP #### [facility] [address] [place], [place] 7719383 [employer] Set Up Operator: Lakhwinder Tim MD Bilirubin [Mass/Vol] 0.2 mg/dL Low 0.3-1.2 [facility] Comment on above: Performed By: #### C P, LIP, CDP #### [facility] [address] [place], [place] 9025483 [employer] Up Operator: Lakhwinder Tim MD BUN/CRE Ratio 8 Low 9-20 [facility] Comment on above: Performed By: #### C P, LIP, CDP #### [facility] [address] [place], [place] 6809783 [employer] Up Operator: Lakhwinder Tim MD Calcium [Mass/Vol] 9.1 mg/dL Normal 8.6-10.4 [facility] Comment on above: Performed By: #### C P, LIP, CDP #### [facility] [address] [place] [address] Dr. [place], [place] 4967583 [employer] Operator: Lakhwinder Tim MD Chloride [Moles/Vol] 102 mmol/L Normal 98-107 [facility] Comment on above: Performed By: #### C P, LIP, CDP #### [address] [place], [place] 1915783 [employer] Up Operator: Lakhwinder Tim MD CO2 [Moles/Vol] 26 mmol/L Normal 20-31 [facility] Comment on above: Performed By: #### C P, LIP, CDP #### [facility] [address] [place], [place] 1009683 [employer] Up Operator: Lakhwinder Tim MD Creatinine [Mass/Vol] 0.5 mg/dL Normal 0.5-0.9 [facility] Comment on above: Performed By: #### C P, LIP, CDP #### [facility] [address] [place] [address] [employer] Set Up Operator: Lakhwinder Tim MD GFR/1.73 sq M.predicted among non-blacks MDRD (S/P/Bld) [Vol rate/Area] mL/min/{1.73_m2} Normal >60 [facility] Comment on above: Result Comment: These results [...] By: #### C P, LIP, CDP #### [facility] [address] [place] [address] [place] [address] [employer] Set Up Operator: Lakhwinder Tim MD Glucose [Mass/Vol] 83 mg/dL Normal 70-99 [facility] Comment on above: Performed By: #### C P, LIP, CDP #### [address] [place], [facility] [employer] Up Operator: Lakhwinder Tim MD Potassium [Moles/Vol] 4.1 mmol/L Normal 3.7-5.3 [facility] Comment on above: Performed By: #### C P, LIP, CDP #### [address] [place] [address] [employer] Set Up Operator: Lakhwinder Tim MD Protein [Mass/Vol] 7.7 g/dL Normal 6.4-8.3 [facility] Comment on above: Performed By: #### C P, LIP, CDP #### [facility] [address] [place], [place] 524[address]83 [employer] Up Operator: Lakhwinder Tim MD Sodium [Moles/Vol] 139 mmol/L Normal 135-144 [facility] Comment on above: Performed By: #### C P, LIP, CDP #### [facility] [address] [place] [address] [employer] Set Up Operator: Lakhwinder Tim MD Urea nitrogen [Mass/Vol] 4 mg/dL Low 6-20 [facility] Comment on above: Performed By: #### C P, TOM, CDP #### [facility] [address] [place] [address] [employer] Set Up Operator: Lakhwinder Tim MD Comprehensive Metabolic Pane [facility] 02-07-2024 Albumin [Mass/Vol] 4.2 g/dL 3.5 - 5.2 g/dL [facility] Albumin/Globulin [Mass ratio] 1.2 {ratio} 1.0 - 2.5 [facility] ALP [Catalytic activity/Vol] 56 U/L 35 - 104 U/L [facility] ALT [Catalytic activity/Vol] 7 U/L 5 - 33 U/L [facility] Anion gap [Moles/Vol] 11 mmol/L 9 - 17 mmol/L [facility] AST [Catalytic activity/Vol] 13 U/L NINF - 32 U/L [facility] Bilirubin [Mass/Vol] 0.2 mg/dL Low 0.3 - 1 .2 mg/dL [facility] Calcium [Mass/Vol] 9.1 mg/dL 8.6 - 10. 4 mg/dL [facility] Chloride [Moles/Vol] 102 mmol/L 98 - 10 7 mmol/L [facility] CO2 [Moles/Vol] 26 mmol/L 20 - 31 mmol/L [facility] Creatinine [Mass/Vol] 0.5 mg/dL 0.5 - 0.9 mg/dL [facility] Est, Glom Filt Rate - PINF [facility] Comment on above: These results are not intended for use in patients <18 years of age. eGFR results are calculated without a race factor using the 202 CKD-EPI equation. Careful clinical correlation is recommended, particularly when comparing to results calculated using previous equations. The CKD-EPI equation is less accurate in patients with extremes of muscle mass, extra-renal metabolism of creatine, excessive creatine ingestion, or following therapy that affects renal tubular secretion. Glucose [Mass/Vol] 83 mg/dL 70 - 99 mg/dL [facility] Interpretation and review of laboratory results Abnormal [facility] Potassium [Moles/Vol] 4.1 mmol/L 3.7 - 5.3 mmol/L [facility] Protein [Mass/Vol] 7.7 g/dL 6.4 - 8.3 g/dL [facility] Sodium [Moles/Vol] 139 mmol/L 135 - 144 mmol/L [facility] Urea nitrogen [Mass/Vol] 4 mg/dL Low 6 - 20 mg/dL [facility] Urea nitrogen/Creatinine [Mass ratio] 8 mg/mg Low 9 - 20 [facility] LIPASEon 02-07-2024 Lipase [Catalytic activity/Vol] 11 U/L Normal 11-82 [facility] Comment on above: Performed By: #### C BCA, 66124-5, PINR, [id number], CMP #### [facility] ([id number]) [address] [place] [address], [address] [place] [address] Lactic Acidon 02-07-2024 Lactate (BldV) [Moles/Vol] 0.6 mmol/L 0.5 - 2.2 mmol/L [facility] Lactate [Moles/Vol] 0.6 mmol/L Normal 0.5-2.2 [facility] Comment on above: Performed By: #### C P, LIP, CDP #### [facility] [address] [place] [address] [employer] Set Up Operator: Lakhwinder Tim MD Lipaseon 02-07-2024 Lipase [Catalytic activity/Vol] 19 U/L 13 - 60 U/L [facility] Lipase [Catalytic activity/Vol] 19 U/L Normal 13-60 [facility] Comment on above: Performed By: #### C P, LIP, CDP #### [facility] [address] [place] [address] [employer] Set Up Operator: Lakhwinder Tim MD Microscopic Urinalysison Epithelial cells LM.HPF (Urine sed) [#/Area] 0 TO 2 [facility] RBC LM.HPF (Urine sed) [#/Area] 0 TO 2 [facility] WBC LM.HPF (Urine sed) [#/Area] 0 TO 2 [facility] No Panel Informationon 02-06 [facility] Troponin I.cardiac High sens itivity method [Mass/Vol]on 02-07-2024 1 HOUR TROP I, HIGH SENSITIVITY <2 Normal <16 [facility] Comment on above: Performed By: #### C BCA, 23548-2, PINR, [id number], CMP #### [facility] ([id number]) [address], [address] [place] [address] TROPONIN I, HIGH SENSITIVITY <2 Normal <16 [facility] Comment on above: Performed By: #### C BCA, 70006-3, PINR, [id number], CMP #### [facility] ([id number]) [address] [place] [address] UA w/Reflex Cultureon 2023 Bilirubin, SemiQt,Ur Negative Normal NEG [facility] Comment on above: Performed By: #### U OSMINO, UAX #### [facility] [address] [place] [address] [employer] Operator: Lakhwinder Tim MD Blood, Urine Negative Normal NEG [facility] Comment on above: Performed By: #### U OSMINO, UAX #### [facility] [address] [place] [address] [employer] Up Operator: Lakhwinder Tim MD Clarity (U) Clear Normal CLEAR [facility] Comment on above: Performed By: #### U OSMINO, UAX #### [facility] [address] [place] [address] [employer] Up Operator: Lakhwinder Tim MD Color (U) Yellow Normal YEL [facility] Comment on above: Performed By: #### U OSMINO, UAX #### [facility] [address] [place] [address] Dr[address] [place], [place] 326[address]83 [employer] Operator: Lakhwinder Tim MD Glucose Ql (U) Negative Normal NEG [facility] Comment on above: Performed By: #### U MICAO, UAX #### [address] [place], [place] [address] [employer] Operator: Lakhwinder Tim MD Ketones Ql (U) Negative Normal NEG [facility] Comment on above: Performed By: #### U MICAO, UAX #### [facility] [address] [place] [address] Dr[address] [place], [place] 2249983 [employer] Operator: Lakhwinder Tim MD Leukocyte esterase Test strip Ql (U) Negative Normal NEG [facility] Comment on above: Performed By: #### U MICAO, UAX #### [address] [place], [place] 5268483 [employer] Operator: Lakhwinder Tim MD Nitrite,Ur Negative Normal [facility] Comment on above: Performed By: #### U MICAO, UAX #### [address] [place], [place] 6678283 [employer] Operator: Lakhwinder Tim MD PH,Ur 7.5 Normal 5.0-9.0 [facility] Comment on above: Performed By: #### U MICAO, UAX #### [address] [place], [place] 7339783 [employer] Operator: Lakhwinder Tim MD Protein Ql (U) Negative Normal NEG [facility] Comment on above: Performed By: #### U MICAO, UAX #### [address] [place], [place] 3981883 [employer] Operator: Lakhwinder Tim MD Spec. [place],Ur 1.010 Normal 1.010-1.020 [facility] Comment on above: Performed By: #### U MICAO, UAX #### [facility] [address] [place] [address] [employer] Up Operator: Lakhwinder Tim MD Urobilinogen,Ur Normal Normal 0.0-1.0 [facility] Comment on above: Performed By: #### U MICAO, UAX #### [facility] [address] [place] [address] [employer] Up Operator: Lakhwinder Tim MD URN MACROSCOPIC NURon 2023 BILIRUBIN LYNSEY Negative Normal [facility] Comment on above: Performed By: #### C BCA, 16290-3, PINR, [id number], CMP #### [facility] ([id number]) [address] [place] [address] BLOOD/HGB LYNSEY Trace Abnormal [facility] Comment on above: Performed By: #### C BCA, 59494-2, PINR, [id number], CMP #### [facility] ([id number]) [address], [address] [place] [address] GLUCOSE LYNSEY Negative Normal [facility] Comment on above: Performed By: #### C BCA, 31632-8, PINR, [id number], CMP #### [facility] ([id number]) [address] [place] [address] KETONES LYNSEY Negative Normal NEG [facility] Comment on above: Performed By: #### C BCA, 94399-6, PINR, [id number], CMP #### [facility] ([id number]) [address] [place] [address] LEUKOCYTE ESTERASE LYNSEY Negative Normal [facility] Comment on above: Performed By: #### C BCA, 14536-5, PINR, [id number], CMP #### [facility] ([id number]) [address] [place] [address] NITRITE LYNSEY Negative Normal NEG [facility] Comment on above: Performed By: #### C BCA, 24246-4, PINR, [id number], CMP #### [facility] ([id number]) [address], [address] [place] [address] PH LYNSEY 7.0 Normal 5.0-8.5 [facility] Comment on above: Performed By: #### C BCA, 77558-3, PINR, [id number], CMP #### [facility] ([id number]) [address] [place] [address] PROTEIN LYNSEY Negative Normal NEG [facility] Comment on above: Performed By: #### C BCA, 74927-3, PINR, [id number], CMP #### [facility] ([id number]) [address] [place] [address] SPECIFIC GRAVITY LYNSEY 1.020 Normal 1.003-1.035 [facility] Comment on above: Performed By: #### C BCA, 22294-2, PINR, [id number], CMP #### [facility] ([id number]) [address] [place] [address] UROBILINOGEN LYNSEY 0.2 eu/dL Normal <1.1 [facility] Comment on above: Performed By: #### C BCA, 86749-1, PINR, [id number], CMP #### [facility] ([id number]) [address] [place] [address] US PELVIC WITH TRANSVAGINAL AND DUPLEXon 02-07-2024 [...] Dwayne Cifuentes MD on 02/07/2024 10:56 PM [facility] Urinalysis with Reflex to Cu ltureon 02-07-2024 Bilirubin Ql (U) Negative NEGATIVE [facility] Clarity (U) Clear Clear [facility] Color (U) Yellow Yellow [facility] Glucose Test strip (U) [Mass/Vol] Negative NEGATIVE mg/dL [facility] Hemoglobin Auto test strip Ql (U) Negative NEGATIVE [facility] Ketones (U) [Mass/Vol] Negative NEGATIVE mg/dL [facility] Leukocyte esterase Test strip Ql (U) Negative NEGATIVE [facility] Nitrite Ql (U) Negative NEGATIVE [facility] pH (U) 7.5 [pH] 5.0 - 9.0 [facility] Protein (U) [Mass/Vol] Negative NEGATIVE mg/dL [facility] Specific gravity (U) [Rel density] 1.010 1.010 - 1.020 [facility] Urobilinogen Qn (U) Normal 0.0 - 1. 0 EU/dL [facility] Urinalysis,Microon 4 Epithelial cells LM Ql (Urine sed) 0 TO 2 Normal 0-25 [facility] Comment on above: Performed By: #### U MICAO, UAX #### [facility] [address] [place] [address] [employer] Operator: Lakhwinder Tim MD Urine RBC's 0 TO 2 Normal 0-2 [facility] Comment on above: Performed By: #### U OSMINO, UAX #### [facility] [address] [place] [address] [employer] Operator: Lakhwinder Tim MD Urine WBC's 0 TO 2 Normal 0-5 [facility] Comment on above: Performed By: #### U MICAO, UAX #### [facility] [address] [place] [address] [employer] Operator: Lakhwinder Tim MD Urine collection deviceon ER EXTRA URINES ER EXTRA URINE ORDER IN PROCESS Normal [facility] Vaginitis DNA Probeon 2023 Anca Negative Normal NEG [facility] Comment on above: Result Comment: for Anca sp. Method of testing is a DNA probe intended for detection and identification of Anca species, Gardnerella vaginalis, and Trichomonas vaginalis nucleic acid in vaginal fluid specimens from patients with symptoms of vaginitis/vaginosis. Performed By: #### U MICAO, UAX #### [facility] [address] [place] [address] [employer] Operator: Lakhwinder Tim MD Gardnerella Negative Normal NEG [facility] Comment on above: Result Comment: for Gardnerella vaginalis Performed By: #### U MICAO, UAX #### [facility] [address] [place] [address] [place] [address] [employer] Operator: Lakhwinder Tim MD Trichomonas Negative Normal NEG [facility] Comment on above: Result Comment: for Trichomonas Vaginalis Performed By: #### U KARINA UAX #### [address] [place] [address] [employer] Operator: Lakhwinder Tim MD Cult,Bloodon 02-06-2024 Cult,Blood Specimen [...] to and read back by:ROLAND AGUILLON 02/04/2024 @[facility] by tech [facility] Report Status FINAL 02/06/2024 Normal [facility] Comment on above: Performed By: #### B C #### [address] [id number] [employer] Operator: Sacha Lai MD [address] [place] [address] [employer] Operator: Lakhwinder Tim MD Vaginitis DNA Probeon 2023 Source .VAGINAL SWAB Normal [facility] Comment on above: Performed By: #### U KALLIE COLLINSX #### [address] [place] [address] [employer] Operator: Lakhwinder Tim MD Basic Metabolic Profon 02-04 Anion gap [Moles/Vol] 10 mmol/L Normal 03-05 [facility] Comment on above: Performed By: #### C P, LIP, CDP #### [address] [place] [address] [employer] Operator: Lakhwinder Tim MD BUN/CRE Ratio 10 Normal 9-20 [facility] Comment on above: Performed By: #### C P, LIP, CDP #### [facility] [address] [place], [place] [phone] [employer] Operator: Lakhwinder Tim MD Calcium [Mass/Vol] 9.1 mg/dL Normal 8.6-10.4 [facility] Comment on above: Performed By: #### C P, LIP, CDP #### [facility] [address] [place], [place] 3764683 [employer] Operator: Lakhwinder Tim MD Chloride [Moles/Vol] 102 mmol/L Normal 98-107 [facility] Comment on above: Performed By: #### C P, LIP, CDP #### [facility] [address] [place], [place] 0883183 [employer] Operator: Lakhwinder Tim MD CO2 [Moles/Vol] 27 mmol/L Normal 20-31 [facility] Comment on above: Performed By: #### C P, LIP, CDP #### [facility] [address] [place], [place] 43[address] [employer] Operator: Lakhwinder Tim MD Creatinine [Mass/Vol] 0.7 mg/dL Normal 0.5-0.9 [facility] Comment on above: Performed By: #### C P, LIP, CDP #### [facility] [address] [place], [place] 9685383 [employer] Operator: Lakhwinder Tim MD GFR/1.73 sq M.predicted among non-blacks MDRD (S/P/Bld) [Vol rate/Area] mL/min/{1.73_m2} Normal >60 [facility] Comment on above: Result Comment: These results [...] By: #### C P, LIP, CDP #### [facility] [address] [place], [place] 12[address]83 [employer] Operator: Lakhwinder Tim MD Glucose [Mass/Vol] 93 mg/dL Normal 70-99 [facility] Comment on above: Performed By: #### C P, LIP, CDP #### [facility] [address] [place] [address] [employer] Operator: Lakhwinder Tim MD Potassium [Moles/Vol] 3.7 mmol/L Normal 3.7-5.3 [facility] Comment on above: Performed By: #### C P, LIP, CDP #### [address] [place], [place] 8195[address] [employer] Operator: Lakhwinder Tim MD Sodium [Moles/Vol] 139 mmol/L Normal 135-144 [facility] Comment on above: Performed By: #### C P, LIP, CDP #### [address] [place], [place] 445[address]83 [employer] Operator: Lakhwinder Tim MD Urea nitrogen [Mass/Vol] 7 mg/dL Normal 6-20 [facility] Comment on above: Performed By: #### C P, LIP, CDP #### [address] [place], [place] 249[address]83 [employer] Operator: Lakhwinder Tim MD CBC with Diffon 02-05-2024 Abs. Basophil <0.03 Normal 0.00-0.20 [facility] Comment on above: Performed By: #### C P, LIP, CDP #### [facility] [address] [place] [address] [employer] Operator: Lakhwinder Tim MD Abs.Imm.Granulocyte <0.03 Normal 0.00-0.30 [facility] Comment on above: Performed By: #### C P, LIP, CDP #### [facility] [address] [place] [address] [address] [place], [place] [address] [employer] Operator: Lakhwinder Tim MD Abs.Neutrophil (Seg) 3.35 k/uL Normal 1.50-8.10 [facility] Comment on above: Performed By: #### C P, LIP, CDP #### [address] [place], [place] [address] [employer] Operator: Lakhwinder Tim MD Basophils/100 WBC (Bld) 0 % Normal 0-2 [facility] Comment on above: Performed By: #### C P, LIP, CDP #### [address] [place], [place] [address] [employer] Operator: Lakhwinder Tim MD Eosinophils (Bld) [#/Vol] 0.10 10*3/uL Normal 0.00-0.44 [facility] Comment on above: Performed By: #### C P, LIP, CDP #### [address] [place], [place] [address] [employer] Operator: Lakhwinder Tim MD Eosinophils/100 WBC (Bld) 2 % Normal 1-4 [facility] Comment on above: Performed By: #### C P, LIP, CDP #### [address] [place], [facility] [employer] Operator: Lakhwinder Tim MD Erythrocyte distribution width (RBC) [Ratio] 15.0 % High 11.8-14.4 [facility] Comment on above: Performed By: #### C P, LIP, CDP #### [address] [place], [facility] [employer] Operator: Lakhwinder Tim MD Hematocrit (Bld) [Volume fraction] 33.6 % Low 36.3-47.1 [facility] Comment on above: Performed By: #### C P, LIP, CDP #### [address] [place], [place] [address]83 [employer] Operator: Lakhwinder Tim MD Hemoglobin (Bld) [Mass/Vol] 11.0 g/dL Low 11.9-15.1 [facility] Comment on above: Performed By: #### C P, LIP, CDP #### [address] [place], [facility] [employer] Operator: Lakhwinder Tim MD Immature granulocytes/100 WBC (Bld) 0 % Normal 0 [facility] Comment on above: Performed By: #### C P, LIP, CDP #### [address] [place], [place] [address] [employer] Operator: Lakhwinder Tim MD Lymphocytes (Bld) [#/Vol] 2.20 10*3/uL Normal 1.10-3.70 [facility] Comment on above: Performed By: #### C P, LIP, CDP #### [address] [place], [facility] [employer] Operator: Lakhwinder Tim MD Lymphocytes/100 WBC (Bld) 35 % Normal 24-43 [facility] Comment on above: Performed By: #### C P, LIP, CDP #### [address] [place], [facility] [employer] Operator: Lakhwinder Tim MD MCH (RBC) [Entitic mass] 28.2 pg Normal 25.2-33.5 [facility] Comment on above: Performed By: #### C P, LIP, CDP #### [address] [place], [place] 329[address]83 [employer] Operator: Lakhwinder Tim MD MCHC (RBC) [Mass/Vol] 32.7 g/dL Normal 28.4-34.8 [facility] Comment on above: Performed By: #### C P, LIP, CDP #### [address] [place] [phone] [employer] Operator: Lakhwinder Tim MD MCV (RBC) [Entitic vol] 86.2 fL Normal 82.6-102.9 [facility] Comment on above: Performed By: #### C P, LIP, CDP #### [address] [place], [place] 2285183 [employer] Operator: Lakhwinder Tim MD Monocytes (Bld) [#/Vol] 0.59 10*3/uL Normal 0.10-1.20 [facility] Comment on above: Performed By: #### C P, LIP, CDP #### [address] [place] [address] [employer] Operator: Lakhwinder Tim MD Monocytes/100 WBC (Bld) 9 % Normal 3-12 [facility] Comment on above: Performed By: #### C P, LIP, CDP #### [address] [place], [place] [address] [employer] Operator: Lakhwinder Tim MD Neutrophil (Seg) 54 % Normal 36-65 [facility] Comment on above: Performed By: #### C P, LIP, CDP #### [address] [place], [facility] [employer] Operator: Lakhwinder Tim MD NRBC Automated 0.0 per 100 WBC Normal 0.0 [facility] Comment on above: Performed By: #### C P, LIP, CDP #### [address] [place], [facility] [employer] Operator: Lakhwinder Tim MD Platelet mean volume (Bld) [Entitic vol] 10.0 fL Normal 8.1-13.5 [facility] Comment on above: Performed By: #### C P, LIP, CDP #### [address] [place], [place] 1674083 [employer] Operator: Lakhwinder Tim MD Platelets (Bld) [#/Vol] 261 10*3/uL Normal 138-453 [facility] Comment on above: Performed By: #### C P LIP, CDP #### [facility] [address] [place], [place] 3925[address] [employer] Operator: Lakhwinder Tim MD RBC (Bld) [#/Vol] 3.90 10*6/uL Low 3.95-5.11 [facility] Comment on above: Performed By: #### C P, LIP, CDP #### [facility] [address] [place], [place] 67[address]83 [employer] Operator: Lakhwinder Tim MD WBC (Bld) [#/Vol] 6.3 10*3/uL Normal 3.5-11.3 [facility] Comment on above: Performed By: #### C P LIP, CDP #### [address] [place], [facility] [employer] Operator: Lakhwinder Tim MD UA w/Reflex Cultureon 2023 Bilirubin, SemiQt,Ur Negative Normal NEG [facility] Comment on above: Performed By: #### U MICAO, UAX #### [address] [place], [place] [address]376883 [employer] Operator: Lakhwinder Tim MD Blood, Urine Negative Normal NEG [facility] Comment on above: Performed By: #### U MICAO, UAX #### [facility] [address] [place] [address] Dr[place], [place] 8444383 [employer] Operator: Lakhwinder Tim MD Clarity (U) Clear Normal CLEAR [facility] Comment on above: Performed By: #### U MICAO, UAX #### [address] [place] [address] [employer] Up Operator: Lakhwinder Tim MD Color (U) Yellow Normal YEL [facility] Comment on above: Performed By: #### U MICAO, UAX #### [facility] [address] [place], [place] 3139283 [employer] Operator: Lakhwinder Tim MD Glucose Ql (U) Negative Normal NEG [facility] Comment on above: Performed By: #### U MICAO, UAX #### [facility] [address] [place] [address] Dr[place], [place] 5708783 [employer] Operator: Lakhwinder Tim MD Ketones Ql (U) Negative Normal NEG [facility] Comment on above: Performed By: #### U MICAO, UAX #### [facility] [address] [place] [address] Dr[place], [place] 8044683 [employer] Operator: Lakhwinder Tim MD Leukocyte esterase Test strip Ql (U) Negative Normal NEG [facility] Comment on above: Performed By: #### U MICAO, UAX #### [address] [place], [facility] [employer] Operator: Lakhwinder Tim MD Nitrite,Ur Negative Normal [facility] Comment on above: Performed By: #### U MICAO, UAX #### [address] [place], [place] 8518683 [employer] Operator: Lakhwinder Tim MD PH,Ur 8.0 Normal 5.0-9.0 [facility] Comment on above: Performed By: #### U MICAO, UAX #### [address] [place], [place] 07[address]83 [employer] Operator: Lakhwinder Tim MD Protein Ql (U) Negative Normal NEG [facility] Comment on above: Performed By: #### U MICAO, UAX #### [address] [place], [place] 9298783 [employer] Operator: Lakhwinder Tim MD Spec. [place],Ur 1.020 Normal 1.010-1.020 [facility] Comment on above: Performed By: #### U MICAO, UAX #### [facility] [address] [place] [address] [employer] Up Operator: Lakhwinder Tim MD Urobilinogen,Ur Normal Normal 0.0-1.0 [facility] Comment on above: Performed By: #### U MICAO, UAX #### [facility] [address] [place] [address] [employer] Up Operator: Lakhwinder Tim MD US PELVIS COMPLETEon 024 US PELVIS [...] Jacob Cotter MD 02/05/24 Final result Normal [facility] Urinalysis,Microon 4 Bacteria TRACE Abnormal NONE [facility] Comment on above: Performed By: #### U MICAO, UAX #### [facility] [address] [place] [address] [employer] Up Operator: Lakhwinder Tim MD Epithelial cells LM Ql (Urine sed) 0 TO 2 Normal 0-25 [facility] Comment on above: Performed By: #### U MICAO, UAX #### [facility] [address] [place] [address] [employer] Up Operator: Lakhwinder Tim MD Mucus Strands TRACE Abnormal NONE [facility] Comment on above: Performed By: #### U OSMINO, UAX #### [facility] [address] [place] [address] [employer] Up Operator: Lakhwinder Tim MD Urine RBC's 0 TO 2 Normal 0-2 [facility] Comment on above: Performed By: #### U KARINA, UAX #### [facility] [address] [place] [address] [employer] Up Operator: Lakhwinder Tim MD Urine WBC's 0 TO 2 Normal 0-5 [facility] Comment on above: Performed By: #### Josesito COLLINS, UAX #### [facility] [address] [place] [address] [employer] Up Operator: Lakhwinder Tim MD CBC with Auto Differentialon 02-03-2024 Basophils (Bld) [#/Vol] 0.03 10*3/uL [facility] Basophils/100 WBC (Bld) 0 % 0 - 2 % [facility] Eosinophils (Bld) [#/Vol] 0.13 10*3/uL [facility] Eosinophils/100 WBC (Bld) 2 % 1 - 4 % [facility] Erythrocyte distribution width (RBC) [Ratio] 14.9 % High 11.8 - 14.4 % [facility] Hematocrit (Bld) [Volume fraction] 33.2 % Low 36.3 - 47.1 % [facility] Hemoglobin (Bld) [Mass/Vol] 10.8 g/dL Low 11.9 - 15.1 g/dL [facility] Immature granulocytes (Bld) [#/Vol] [facility] Immature granulocytes/100 WBC (Bld) 0 % 0 [facility] Interpretation and review of laboratory results Abnormal [facility] Lymphocytes/100 WBC (Bld) 48 % High 24 - 43 % [facility] Lymphocytes/100 WBC (Bld) 3.20 % [facility] MCH (RBC) [Entitic mass] 27.8 pg 25.2 - 33.5 pg [facility] MCHC (RBC) [Mass/Vol] 32.5 g/dL 28.4 - 34.8 g/dL [facility] MCV (RBC) [Entitic vol] 85.6 fL 82.6 - 102.9 fL [facility] Monocytes/100 WBC (Bld) 9 % 3 - 12 % [facility] Monocytes/100 WBC (Bld) 0.63 % [facility] Neutrophils/100 WBC (Bld) 41 % 36 - 65 % [facility] Nucleated RBC/100 WBC (Bld) [Ratio] 0.0 % 0.0 per 100 WBC [facility] Platelet mean volume (Bld) [Entitic vol] 9.8 fL 8.1 - 13.5 fL [facility] Platelets (Bld) [#/Vol] 275 10*3/uL [facility] RBC (Bld) [#/Vol] 3.88 10*6/uL Low 3.95 - 5.1 1 m/uL [facility] Segmented neutrophils/100 WBC (Bld) 2.78 % [facility] WBC other (Bld) [#/Vol] 6.8 [facility] CBC with Diffon 02-03-2024 Abs. Basophil 0.03 k/uL Normal 0.00-0.20 [facility] Comment on above: Performed By: #### C P, LIP, CDP #### [facility] [address] [place] [address] [employer] Operator: Lakhwinder Tim MD Abs.Imm.Granulocyte <0.03 Normal 0.00-0.30 [facility] Comment on above: Performed By: #### C P, LIP, CDP #### [facility] [address] [place] [address] [employer] Operator: Lakhwinder Tim MD Abs.Neutrophil (Seg) 2.78 k/uL Normal 1.50-8.10 [facility] Comment on above: Performed By: #### C P, LIP, CDP #### [address] [place], [facility] [employer] Operator: Lakhwinder Tim MD Basophils/100 WBC (Bld) 0 % Normal 0-2 [facility] Comment on above: Performed By: #### C P, LIP, CDP #### [address] [place], [facility] [employer] Operator: Lakhwinder Tim MD Eosinophils (Bld) [#/Vol] 0.13 10*3/uL Normal 0.00-0.44 [facility] Comment on above: Performed By: #### C P, LIP, CDP #### [address] [place], [place] [address] [employer] Operator: Lakhwinder Tim MD Eosinophils/100 WBC (Bld) 2 % Normal 1-4 [facility] Comment on above: Performed By: #### C P, LIP, CDP #### [address] [place], [facility] [employer] Operator: Lakhwinder Tim MD Erythrocyte distribution width (RBC) [Ratio] 14.9 % High 11.8-14.4 [facility] Comment on above: Performed By: #### C P, LIP, CDP #### [address] [place], [facility] [employer] Operator: Lakhwinder Tim MD Hematocrit (Bld) [Volume fraction] 33.2 % Low 36.3-47.1 [facility] Comment on above: Performed By: #### C P, LIP, CDP #### [address] [place], [facility] [employer] Operator: Lahkwinder Tim MD Hemoglobin (Bld) [Mass/Vol] 10.8 g/dL Low 11.9-15.1 [facility] Comment on above: Performed By: #### C P, LIP, CDP #### [address] [place], [facility] [employer] Operator: Lakhwinder Tim MD Immature granulocytes/100 WBC (Bld) 0 % Normal 0 [facility] Comment on above: Performed By: #### C P, LIP, CDP #### [address] [place], [facility] [employer] Operator: Lakhwinder Tim MD Lymphocytes (Bld) [#/Vol] 3.20 10*3/uL Normal 1.10-3.70 [facility] Comment on above: Performed By: #### C P, LIP, CDP #### [address] [place] [address] [employer] Operator: Lakhwinder Tim MD Lymphocytes/100 WBC (Bld) 48 % High 24-43 [facility] Comment on above: Performed By: #### C P, LIP, CDP #### [address] [place], [place] [address] [employer] Operator: Lakhwinder Tim MD MCH (RBC) [Entitic mass] 27.8 pg Normal 25.2-33.5 [facility] Comment on above: Performed By: #### C P, LIP, CDP #### [address] [place], [facility] [employer] Operator: Lakhwinder Tim MD MCHC (RBC) [Mass/Vol] 32.5 g/dL Normal 28.4-34.8 [facility] Comment on above: Performed By: #### C P, LIP, CDP #### [address] [place], [facility] [employer] Operator: Lakhwinder Tim MD MCV (RBC) [Entitic vol] 85.6 fL Normal 82.6-102.9 [facility] Comment on above: Performed By: #### C P, LIP, CDP #### [address] [place], [facility] [employer] Operator: Lakhwinder Tim MD Monocytes (Bld) [#/Vol] 0.63 10*3/uL Normal 0.10-1.20 [facility] Comment on above: Performed By: #### C P, LIP, CDP #### [facility] [address] [place], [place] 3198583 [employer] Operator: Lakhwinder Tim MD Monocytes/100 WBC (Bld) 9 % Normal 3-12 [facility] Comment on above: Performed By: #### C P, LIP, CDP #### [facility] [address] [place], [place] [address]83 [employer] Operator: Lakhwinder Tim MD Neutrophil (Seg) 41 % Normal 36-65 [facility] Comment on above: Performed By: #### C P, LIP, CDP #### [facility] [address] [place], [place] 0600483 [employer] Operator: Lakhwinder Tim MD NRBC Automated 0.0 per 100 WBC Normal 0.0 [facility] Comment on above: Performed By: #### C P, LIP, CDP #### [address] [place], [place] 1784083 [employer] Operator: Lakhwinder Tim MD Platelet mean volume (Bld) [Entitic vol] 9.8 fL Normal 8.1-13.5 [facility] Comment on above: Performed By: #### C P, LIP, CDP #### [facility] [address] [place], [place] [phone] [employer] Operator: Lakhwinder Tim MD Platelets (Bld) [#/Vol] 275 10*3/uL Normal 138-453 [facility] Comment on above: Performed By: #### C P, LIP, CDP #### [facility] [address] [place], [place] [phone] [employer] Operator: Lakhwinder Tim MD RBC (Bld) [#/Vol] 3.88 10*6/uL Low 3.95-5.11 [facility] Comment on above: Performed By: #### C TOM Mckeon, CDP #### [facility] [address] [place], [place] [phone] [employer] Operator: Lakhwinder Tim MD WBC (Bld) [#/Vol] 6.8 10*3/uL Normal 3.5-11.3 [facility] Comment on above: Performed By: #### C TOM Mckeon, CDP #### [facility] [address] [place], [place] [phone] [employer] Operator: Lakhwinder Tim MD CT ABDOMEN PELVIS W [...] Tres Barillas MD 02/03/24 Final result Normal [facility] CT Abdomen and Pelvis W cont rast Alexsander 02-03-2024 Multiloculated right adnexal cystic mass with inflammatory change. Recommend pelvic ultrasound. [facility] EXAMINATION: CT OF THE ABDOMEN [...] is no pathologic adenopathy. Bones/Soft Tissues: Normal [facility] Tres Barillas MD - 02/03/2024 EXAMINATION: [...] mass with inflammatory change. Recommend pelvic ultrasound. [facility] Radiology Study observation (narrative) [facility] CT Abdomen and Pelvis W cont rast IVOrdered By: Tres Barillas on 02-03-2024 [facility] Work Phone: Comp Metabolic Profon 2023 Albumin [Mass/Vol] 4.1 g/dL Normal 3.5-5.2 [facility] Comment on above: Performed By: #### C TOM Mckeon, CDP #### [facility] [address] [place] [address] [place] [address] [employer] Operator: Lakhwinder Tim MD Albumin/Glob Ratio 1.1 Normal 1.0-2.5 [facility] Comment on above: Performed By: #### C TOM Mckeon, CDP #### [facility] [address] [place] [address] [employer] Operator: Lakhwinder Tim MD Alkaline Phos 64 U/L Normal 35-104 [facility] Comment on above: Performed By: #### C P LIP, CDP #### [facility] [address] [place] [address] [employer] Operator: Lakhwinder Tim MD ALT [Catalytic activity/Vol] 7 U/L Normal 5-33 [facility] Comment on above: Performed By: #### C P, LIP, CDP #### [facility] [address] [place], [place] 715[address]83 [employer] Operator: Lakhwinder Tim MD Anion gap [Moles/Vol] 11 mmol/L Normal 9-17 [facility] Comment on above: Performed By: #### C P, LIP, CDP #### [facility] [address] [place], [place] [phone] [employer] Operator: Lakhwinder Tim MD AST [Catalytic activity/Vol] 12 U/L Normal <32 [facility] Comment on above: Performed By: #### C P, LIP, CDP #### [facility] [address] [place], [place] 1463383 [employer] Operator: Lakhwinder Tim MD Bilirubin [Mass/Vol] 0.2 mg/dL Low 0.3-1.2 [facility] Comment on above: Performed By: #### C P, LIP, CDP #### [facility] [address] [place], [place] 1875083 [employer] Operator: Lakhwinder Tim MD BUN/CRE Ratio 20 Normal 9-20 [facility] Comment on above: Performed By: #### C P, LIP, CDP #### [facility] [address] [place], [place] 1425183 [employer] Operator: Lakhwinder Tim MD Calcium [Mass/Vol] 8.9 mg/dL Normal 8.6-10.4 [facility] Comment on above: Performed By: #### C P, LIP, CDP #### [facility] [address] [place], [place] [phone] [employer] Operator: Lakhwinder Tim MD Chloride [Moles/Vol] 99 mmol/L Normal 98-107 [facility] Comment on above: Performed By: #### C P, LIP, CDP #### [facility] [address] [place] [address] [employer] Operator: Lakhwinder Tim MD CO2 [Moles/Vol] 28 mmol/L Normal 20-31 [facility] Comment on above: Performed By: #### C P, LIP, CDP #### [facility] [address] [place] [address] [employer] Operator: Lakhwinder Tmi MD Creatinine [Mass/Vol] 0.6 mg/dL Normal 0.5-0.9 [facility] Comment on above: Performed By: #### C P, LIP, CDP #### [facility] [address] [place] [address] [employer] Operator: Lakhwinder Tim MD GFR/1.73 sq M.predicted among non-blacks MDRD (S/P/Bld) [Vol rate/Area] mL/min/{1.73_m2} Normal >60 [facility] Comment on above: Result Comment: These results [...] By: #### C P, LIP, CDP #### [facility] [address] [place] [address] [employer] Operator: Lakhwinder Tim MD Glucose [Mass/Vol] 86 mg/dL Normal 70-99 [facility] Comment on above: Performed By: #### C P, LIP, CDP #### [facility] [address] [place] [address] [employer] Operator: Lakhwinder Tim MD Potassium [Moles/Vol] 3.8 mmol/L Normal 3.7-5.3 [facility] Comment on above: Performed By: #### C P, LIP, CDP #### [facility] [address] [place] [address] [employer] Operator: Lakhwinder Tim MD Protein [Mass/Vol] 7.8 g/dL Normal 6.4-8.3 [facility] Comment on above: Performed By: #### C P, LIP, CDP #### [facility] [address] [place], [place] [phone] [employer] Operator: Lakhwinder Tim MD Sodium [Moles/Vol] 138 mmol/L Normal 135-144 [facility] Comment on above: Performed By: #### C P, LIP, CDP #### [facility] [address] [place] [address] [employer] Operator: Lakhwinder Tim MD Urea nitrogen [Mass/Vol] 12 mg/dL Normal 6-20 [facility] Comment on above: Performed By: #### C P, LIP, CDP #### [facility] [address] [place] [address] [employer] Operator: Lakhwinder Tim MD [facility] Metabolic [facility] 02-03-2024 Albumin [Mass/Vol] 4.1 g/dL 3.5 - 5.2 g/dL [facility] Albumin/Globulin [Mass ratio] 1.1 {ratio} 1.0 - 2.5 [facility] ALP [Catalytic activity/Vol] 64 U/L 35 - 104 U/L [facility] ALT [Catalytic activity/Vol] 7 U/L 5 - 33 U/L [facility] Anion gap [Moles/Vol] 11 mmol/L 9 - 17 mmol/L [facility] AST [Catalytic activity/Vol] 12 U/L NINF - 32 U/L [facility] Bilirubin [Mass/Vol] 0.2 mg/dL Low 0.3 - 1 .2 mg/dL [facility] Calcium [Mass/Vol] 8.9 mg/dL 8.6 - 10. 4 mg/dL [facility] Chloride [Moles/Vol] 99 mmol/L 98 - 10 7 mmol/L [facility] CO2 [Moles/Vol] 28 mmol/L 20 - 31 mmol/L [facility] Creatinine [Mass/Vol] 0.6 mg/dL 0.5 - 0.9 mg/dL [facility] [employer] [facility] Comment on above: These results are not [...] [Mass/Vol] 86 mg/dL 70 - 99 mg/dL [facility] Interpretation and review of laboratory results Abnormal [facility] Potassium [Moles/Vol] 3.8 mmol/L 3.7 - 5.3 mmol/L [facility] Protein [Mass/Vol] 7.8 g/dL 6.4 - 8.3 g/dL [facility] Sodium [Moles/Vol] 138 mmol/L 135 - 144 mmol/L [facility] Urea nitrogen [Mass/Vol] 12 mg/dL 6 - 20 mg/dL [facility] Urea nitrogen/Creatinine [Mass ratio] 20 mg/mg 9 - 20 [facility] HCG, ,Urineon 02-02 Beta HCG ( test) Ql (U) Negative Normal NEG [facility] Comment on above: Result Comment: Spec imens with hCG levels near the threshold of the test (25 mIU/mL) may give a negative or indeterminate result. In such cases, another test should be performed with a new specimen in 48-72 hours. If early is suspected clinically in this setting, correlation with quantitative serum b-hCG level is suggested. [facility] has confirmed the use of plasma for this test. This has not been cleared or approved by the U.S. Food and Drug Administration. The FDA has determined that such clearance is not necessary. Performed By: #### C P, LIP, CDP #### [facility] [address] [place] [address] [employer] Operator: Lakhwinder Tim MD Lactic Acidon 02-03-2024 Lactate (BldV) [Moles/Vol] 1.0 mmol/L 0.5 - 2.2 mmol/L [facility] Lactate [Moles/Vol] 1.0 mmol/L Normal 0.5-2.2 [facility] Comment on above: Performed By: #### L ACTIC #### [facility] [address] [place] [address] [employer] Operator: Lakhwinder Tim MD Lipaseon 02-03-2024 Lipase [Catalytic activity/Vol] 29 U/L 13 - 60 U/L [facility] Lipase [Catalytic activity/Vol] 29 U/L Normal 13-60 [facility] Comment on above: Performed By: #### C P, LIP, CDP #### [facility] [address] [place] [address] [employer] Operator: Lakhwinder Tim MD No Panel Informationon 02-02 [facility] , Urineon HCG ( test) Ql (U) Negative NEGATIVE [facility] Comment on above: Specimens with hCG l evels near the threshold of the test (25 mIU/mL) may give a negative or indeterminate result. In such cases, another test should be performed with a new specimen in 48-72 hours. If early is suspected clinically in this setting, correlation with quantitative serum b-hCG level is suggested. [facility] has confirmed the use of plasma for this test. This has not been cleared or approved by the U.S. Food and Drug Administration. The FDA has determined that such clearance is not necessary. [facility] Urinalysis w/ Microon 2023 Bacteria TRACE Abnormal NONE [facility] Comment on above: Performed By: #### C P, LIP, CDP #### [facility] [address] [place] [address] [employer] Operator: Lakhwinder Tim MD Bilirubin, SemiQt,Ur Negative Normal NEG [facility] Comment on above: Performed By: #### C P, LIP, CDP #### [facility] [address] [place], [place] 1724883 [employer] Operator: Lakhwinder Tim MD Blood, Urine Negative Normal NEG [facility] Comment on above: Performed By: #### C P, LIP, CDP #### [facility] [address] [place], [place] 716[address]83 [employer] Operator: Lakhwinder Tim MD Clarity (U) Clear Normal CLEAR [facility] Comment on above: Performed By: #### C P, LIP, CDP #### [facility] [address] [place], [place] [address]23[address]83 [employer] Operator: Lakhwinder Tim MD Color (U) Yellow Normal YEL [facility] Comment on above: Performed By: #### C P, LIP, CDP #### [facility] [address] [place], [place] 3440283 [employer] Operator: Lakhwinder Tim MD Epithelial cells LM Ql (Urine sed) 2 TO 5 Normal 0-25 [facility] Comment on above: Performed By: #### C P, LIP, CDP #### [facility] [address] [place], [place] 4947383 [employer] Operator: Lakhwinder Tim MD Glucose Ql (U) Negative Normal NEG [facility] Comment on above: Performed By: #### C P, LIP, CDP #### [facility] [address] [place], [place] 1694383 [employer] Operator: Lakhwinder Tim MD Ketones Ql (U) Negative Normal NEG [facility] Comment on above: Performed By: #### C P, LIP, CDP #### [facility] [address] [place], [place] 959[address]83 [employer] Operator: Lakhwinder Tim MD Leukocyte esterase Test strip Ql (U) Negative Normal NEG [facility] Comment on above: Performed By: #### C P, LIP, CDP #### [facility] [address] [place], [place] 1746583 [employer] Operator: Lakhwinder Tim MD Mucus Strands 2+ Abnormal NONE [facility] Comment on above: Performed By: #### C P, LIP, CDP #### [facility] [address] [place], [place] 3623683 [employer] Up Operator: Lakhwinder Tim MD Nitrite,Ur Negative Normal NEG [facility] Comment on above: Performed By: #### C P, LIP, CDP #### [facility] [address] [place] [address] [employer] Operator: Lakhwinder Tim MD PH,Ur 6.0 Normal 5.0-9.0 [facility] Comment on above: Performed By: #### C P, LIP, CDP #### [address] [place] [address] [employer] Operator: Lakhwinder Tim MD Protein Ql (U) Negative Normal NEG [facility] Comment on above: Performed By: #### C P, LIP, CDP #### [address] [place] [address] [employer] Operator: Lakhwinder Tim MD Spec. [place],Ur >1.030 High 1.010-1.020 [facility] Comment on above: Performed By: #### C P, LIP, CDP #### [facility] [address] [place] [address] [place] [address] [employer] Operator: Lakhwinder Tim MD Urine RBC's 0 TO 2 Normal 0-2 [facility] Comment on above: Performed By: #### C P, LIP, CDP #### [facility] [address] [place] [address] [employer] Operator: Lakhwinder Tim MD Urine WBC's 0 TO 2 Normal 0-5 [facility] Comment on above: Performed By: #### C P, LIP, CDP #### [facility] [address] [place] [address] [employer] Up Operator: Lakhwinder Tim MD Urobilinogen,Ur Normal Normal 0.0-1.0 [facility] Comment on above: Performed By: #### C P, LIP, CDP #### [facility] [address] [place] [address] [employer] Up Operator: Lakhwinder Tim MD Urinalysis with Microscopico n 02-03-2024 Bacteria LM Ql (Urine sed) TRACE Abnormal None [facility] Bilirubin Ql (U) Negative NEGATIVE [facility] Clarity (U) Clear Clear [facility] Color (U) Yellow Yellow [facility] Epithelial cells LM.HPF (Urine sed) [#/Area] 2 TO 5 [facility] Glucose Test strip (U) [Mass/Vol] Negative NEGATIVE mg/dL [facility] Hemoglobin Auto test strip Ql (U) Negative NEGATIVE [facility] Interpretation and review of laboratory results Abnormal [facility] Ketones (U) [Mass/Vol] Negative NEGATIVE mg/dL [facility] Leukocyte esterase Test strip Ql (U) Negative NEGATIVE [facility] Mucus Ql (Urine sed) 2+ Abnormal None [facility] Nitrite Ql (U) Negative NEGATIVE [facility] pH (U) 6.0 [pH] 5.0 - 9.0 [facility] Protein (U) [Mass/Vol] Negative NEGATIVE mg/dL [facility] RBC LM.HPF (Urine sed) [#/Area] 0 TO 2 [facility] Specific gravity (U) [Rel density] High 1.010 - 1.020 [facility] Urobilinogen Qn (U) Normal 0.0 - 1. 0 EU/dL [facility] WBC LM.HPF (Urine sed) [#/Area] 0 TO 2 [facility] CBC AND AUTO DIFFon 01-17-20 24 ABSOLUTE BASOPHIL 0.0 X10E9/L Normal 0.0-0.2 [facility] Comment on above: Performed By: #### 2 823-3 #### [facility] ([id number]) [address] [place] [address] ABSOLUTE NEUTROPHIL 7.1 X10E9/L High 1.5-6.6 [facility] Comment on above: Performed By: #### 2 823-3 #### [facility] ([id number]) [address] [place] [address] Basophils/100 WBC (Bld) 0.2 % Normal [facility] Comment on above: Performed By: #### 2 823-3 #### [facility] ([id number]) [address], [address] [place] [address] Eosinophils (Bld) [#/Vol] 0.1 10*3/uL Normal 0.0-0.4 [facility] Comment on above: Performed By: #### 2 823-3 #### [facility] ([id number]) [address] [place] [address] Eosinophils/100 WBC (Bld) 1.4 % Normal [facility] Comment on above: Performed By: #### 2 823-3 #### [facility] ([id number]) [address] [place] [address] Erythrocyte distribution width (RBC) [Ratio] 15.3 % High 11.5-15.0 [facility] Comment on above: Performed By: #### 2 823-3 #### [facility] ([id number]) [address] [place] [address] Hematocrit (Bld) [Volume fraction] 30.6 % Low 35-47 [facility] Comment on above: Performed By: #### 2 823-3 #### [facility] ([id number]) [address] [place] [address] Hemoglobin (Bld) [Mass/Vol] 10.1 g/dL Low 11.7-15.5 [facility] Comment on above: Performed By: #### 2 823-3 #### [facility] ([id number]) [address] [place] [address] Lymphocytes (Bld) [#/Vol] 1.8 10*3/uL Normal 1.0-3.5 [facility] Comment on above: Performed By: #### 2 823-3 #### [facility] ([id number]) [address] [place] [address] Lymphocytes/100 WBC (Bld) 18.1 % Normal [facility] Comment on above: Performed By: #### 2 823-3 #### [facility] ([id number]) [address] [place] [address] MCH (RBC) [Entitic mass] 27.7 pg Normal 27-34 [facility] Comment on above: Performed By: #### 2 823-3 #### [facility] ([id number]) [address] [place] [address] MCHC (RBC) [Mass/Vol] 32.9 g/dL Normal 32-36 [facility] Comment on above: Performed By: #### 2 823-3 #### [facility] ([id number]) [address] [place] [address] MCV (RBC) [Entitic vol] 84 fL Normal 80-100 [facility] Comment on above: Performed By: #### 2 823-3 #### [facility] ([id number]) [address] [place] [address] Monocytes (Bld) [#/Vol] 1.0 10*3/uL High 0-0.9 [facility] Comment on above: Performed By: #### 2 823-3 #### [facility] ([id number]) [address] [place] [address] Monocytes/100 WBC (Bld) 9.6 % Normal [facility] Comment on above: Performed By: #### 2 823-3 #### [facility] ([id number]) [address] [place] [address] Neutrophils/100 WBC (Bld) 70.7 % Normal [facility] Comment on above: Performed By: #### 2 823-3 #### [facility] ([id number]) [address] [place] [address] Platelet mean volume (Bld) [Entitic vol] 7.8 fL Normal 7-12 [facility] Comment on above: Performed By: #### 2 823-3 #### [facility] ([id number]) [address] [place] [address] Platelets (Bld) [#/Vol] 404 10*3/uL Normal 150-450 [facility] Comment on above: Performed By: #### 2 823-3 #### [facility] ([id number]) [address] [place] [address] RBC COUNT 3.64 X10E12/L Low 3.80-5.20 [facility] Comment on above: Performed By: #### 2 823-3 #### [facility] ([id number]) [address] [place] [address] WBC (Bld) [#/Vol] 10.1 10*3/uL Normal 4.0-11.0 [facility] Comment on above: Performed By: #### 2 823-3 #### [facility] ([id number]) [address] [place] [address] COMPREHENSIVE METABOLIC PANE [place] 01-17-2024 Albumin [Mass/Vol] 3.0 g/dL Low 3.2-5.3 [facility] Comment on above: Performed By: #### 2 823-3 #### [facility] ([id number]) [address] [place] [address] ALP [Catalytic activity/Vol] 76 U/L Normal 39-130 [facility] Comment on above: Performed By: #### 2 823-3 #### [facility] ([id number]) [address] [place] [address] ALT [Catalytic activity/Vol] 10 U/L Normal 0-31 [facility] Comment on above: Performed By: #### 2 823-3 #### [facility] ([id number]) [address] [place] [address] Anion gap [Moles/Vol] 9 mmol/L Normal 5-15 [facility] Comment on above: Performed By: #### 2 823-3 #### [facility] ([id number]) [address] [place] [address] AST [Catalytic activity/Vol] 10 U/L Normal 0-41 [facility] Comment on above: Performed By: #### 2 823-3 #### [facility] ([id number]) [address] [place] [address] Bilirubin [Mass/Vol] 0.2 mg/dL Low 0.3-1.2 [facility] Comment on above: Performed By: #### 2 823-3 #### [facility] ([id number]) [address] [place] [address] Calcium [Mass/Vol] 8.6 mg/dL Normal 8.5-10.5 [facility] Comment on above: Performed By: #### 2 823-3 #### [facility] ([id number]) [address] [place] [address] Chloride [Moles/Vol] 99 mmol/L Normal 98-109 [facility] Comment on above: Performed By: #### 2 823-3 #### [facility] ([id number]) [address] [place] [address] CO2 [Moles/Vol] 28 mmol/L Normal 22-32 [facility] Comment on above: Performed By: #### 2 823-3 #### [facility] ([id number]) [address] [place] [address] Creatinine [Mass/Vol] 0.44 mg/dL Normal 0.40-1.00 [facility] Comment on above: Result Comment: METH OD TRACEABLE TO IDMS STANDARD Performed By: #### 2 823-3 #### [facility] ([id number]) [address] [place] [address] eGFR (CKD-EPI) NON-RACE DEPENDENT >90 Normal >59 [facility] Comment on above: Result Comment: Reported eGFR is based on the CKD-EPI 1 equation that does not use a race coefficient. Performed By: #### 2 823-3 #### [facility] ([id number]) [address] [place] [address] Glucose [Mass/Vol] 87 mg/dL Normal 65-99 [facility] Comment on above: Performed By: #### 2 823-3 #### [facility] ([id number]) [address] [place] [address] Potassium [Moles/Vol] 3.9 mmol/L Normal 3.5-5.0 [facility] Comment on above: Performed By: #### 2 823-3 #### [facility] ([id number]) [address] [place] [address] Protein [Mass/Vol] 6.3 g/dL Normal 6.0-8.0 [facility] Comment on above: Performed By: #### 2 823-3 #### [facility] ([id number]) [address] [place] [address] Sodium [Moles/Vol] 136 mmol/L Normal 134-146 [facility] Comment on above: Performed By: #### 2 823-3 #### [facility] ([id number]) [address] [place] [address] Urea nitrogen [Mass/Vol] 5 mg/dL Normal 5-23 [facility] Comment on above: Performed By: #### 2 823-3 #### [facility] ([id number]) [address] [place] [address] CBC AND AUTO DIFFon 01-16-20 24 ABSOLUTE BASOPHIL 0.0 X10E9/L Normal 0.0-0.2 [facility] Comment on above: Performed By: #### 2 823-3 #### [facility] ([id number]) [address] [place] [address] ABSOLUTE NEUTROPHIL 8.2 X10E9/L High 1.5-6.6 [facility] Comment on above: Performed By: #### 2 823-3 #### [facility] ([id number]) [address] [place] [address] Basophils/100 WBC (Bld) 0.2 % Normal [facility] Comment on above: Performed By: #### 2 823-3 #### [facility] ([id number]) [address] [place] [address] Eosinophils (Bld) [#/Vol] 0.0 10*3/uL Normal 0.0-0.4 [facility] Comment on above: Performed By: #### 2 823-3 #### [facility] ([id number]) [address] [place] [address] Eosinophils/100 WBC (Bld) 0.1 % Normal [facility] Comment on above: Performed By: #### 2 823-3 #### [facility] ([id number]) [address] [place] [address] Erythrocyte distribution width (RBC) [Ratio] 15.3 % High 11.5-15.0 [facility] Comment on above: Performed By: #### 2 823-3 #### [facility] ([id number]) [address] [place] [address] Hematocrit (Bld) [Volume fraction] 31.5 % Low 35-47 [facility] Comment on above: Performed By: #### 2 823-3 #### [facility] ([id number]) [address], [address] [place] [address] Hemoglobin (Bld) [Mass/Vol] 10.5 g/dL Low 11.7-15.5 [facility] Comment on above: Performed By: #### 2 823-3 #### [facility] ([id number]) [address], [address] [place] [address] Lymphocytes (Bld) [#/Vol] 1.2 10*3/uL Normal 1.0-3.5 [facility] Comment on above: Performed By: #### 2 823-3 #### [facility] ([id number]) [address], [address] [place] [address] Lymphocytes/100 WBC (Bld) 12.0 % Normal [facility] Comment on above: Performed By: #### 2 823-3 #### [facility] ([id number]) [address], [address] [place] [address] MCH (RBC) [Entitic mass] 28.0 pg Normal 27-34 [facility] Comment on above: Performed By: #### 2 823-3 #### [facility] ([id number]) [address], [facility] [address] [place] [address] MCHC (RBC) [Mass/Vol] 33.3 g/dL Normal 32-36 [facility] Comment on above: Performed By: #### 2 823-3 #### [facility] ([id number]) [address], [facility] [address] [place] [address] MCV (RBC) [Entitic vol] 84 fL Normal 80-100 [facility] Comment on above: Performed By: #### 2 823-3 #### [facility] ([id number]) [address], [facility] [address] [place] [address] Monocytes (Bld) [#/Vol] 0.7 10*3/uL Normal 0-0.9 [facility] Comment on above: Performed By: #### 2 823-3 #### [facility] ([id number]) [address] [place] [address] Monocytes/100 WBC (Bld) 6.5 % Normal [facility] Comment on above: Performed By: #### 2 823-3 #### [facility] ([id number]) [address], [address] [place] [address] Neutrophils/100 WBC (Bld) 81.2 % Normal [facility] Comment on above: Performed By: #### 2 823-3 #### [facility] ([id number]) [address], [address] [place] [address] Platelet mean volume (Bld) [Entitic vol] 8.8 fL Normal 7-12 [facility] Comment on above: Performed By: #### 2 823-3 #### [facility] ([id number]) [address], [address] [place] [address] Platelets (Bld) [#/Vol] 341 10*3/uL Normal 150-450 [facility] Comment on above: Performed By: #### 2 823-3 #### [facility] ([id number]) [address], [address] [place] [address] RBC COUNT 3.75 X10E12/L Low 3.80-5.20 [facility] Comment on above: Performed By: #### 2 823-3 #### [facility] ([id number]) [address], [address] [place] [address] WBC (Bld) [#/Vol] 10.1 10*3/uL Normal 4.0-11.0 [facility] Comment on above: Performed By: #### 2 823-3 #### [facility] ([id number]) [address], [address] [place] [address] COMPREHENSIVE METABOLIC PANE Blaine 01-16-2024 Albumin [Mass/Vol] 3.2 g/dL Normal 3.2-5.3 [facility] Comment on above: Performed By: #### 2 823-3 #### [facility] ([id number]) [address], [address] [place] [address] ALP [Catalytic activity/Vol] 95 U/L Normal 39-130 [facility] Comment on above: Performed By: #### 2 823-3 #### [facility] ([id number]) [address], [address] [place] [address] ALT [Catalytic activity/Vol] 12 U/L Normal 0-31 [facility] Comment on above: Performed By: #### 2 823-3 #### [facility] ([id number]) [address], [address] [place] [address] Anion gap [Moles/Vol] 14 mmol/L Normal 5-15 [facility] Comment on above: Performed By: #### 2 823-3 #### [facility] ([id number]) [address], [address] [place] [address] AST [Catalytic activity/Vol] 9 U/L Normal 0-41 [facility] Comment on above: Performed By: #### 2 823-3 #### [facility] ([id number]) [address], [address] [place] [address] Bilirubin [Mass/Vol] 0.3 mg/dL Normal 0.3-1.2 [facility] Comment on above: Performed By: #### 2 823-3 #### [facility] ([id number]) [address], [address] [place] [address] Calcium [Mass/Vol] 8.9 mg/dL Normal 8.5-10.5 [facility] Comment on above: Performed By: #### 2 823-3 #### [facility] ([id number]) [address], [address] [place] [address] Chloride [Moles/Vol] 98 mmol/L Normal 98-109 [facility] Comment on above: Performed By: #### 2 823-3 #### [facility] ([id number]) [address], [address] [place] [address] CO2 [Moles/Vol] 24 mmol/L Normal 22-32 [facility] Comment on above: Performed By: #### 2 823-3 #### [facility] ([id number]) [address], [address] [place] [address] Creatinine [Mass/Vol] 0.35 mg/dL Low 0.40-1.00 [facility] Comment on above: Result Comment: METH OD TRACEABLE TO IDMS STANDARD Performed By: #### 2 823-3 #### [facility] ([id number]) [address], [address] [place] [address] eGFR (CKD-EPI) NON-RACE DEPENDENT >90 Normal >59 [facility] Comment on above: Result Comment: Reported eGFR is based on the CKD-EPI 2020 equation that does not use a race coefficient. Performed By: #### 2 823-3 #### [facility] ([id number]) [address], [address] [place] [address] Glucose [Mass/Vol] 82 mg/dL Normal 65-99 [facility] Comment on above: Performed By: #### 2 823-3 #### [facility] ([id number]) [address], [address] [place] [address] Potassium [Moles/Vol] 3.7 mmol/L Normal 3.5-5.0 [facility] Comment on above: Performed By: #### 2 823-3 #### [facility] ([id number]) [address], [address] [place] [address] Protein [Mass/Vol] 7.0 g/dL Normal 6.0-8.0 [facility] Comment on above: Performed By: #### 2 823-3 #### [facility] ([id number]) [address], [address] [place] [address] Sodium [Moles/Vol] 136 mmol/L Normal 134-146 [facility] Comment on above: Performed By: #### 2 823-3 #### [facility] ([id number]) [address], [address] [place] [address] Urea nitrogen [Mass/Vol] 5 mg/dL Normal 5-23 [facility] Comment on above: Performed By: #### 2 823-3 #### [facility] ([id number]) [address], [address] [place] [address] MAGNESIUMon 01-16-2024 Magnesium [Mass/Vol] 1.8 mg/dL Normal 1.8-2.6 [facility] Comment on above: Performed By: #### 2 823-3 #### [facility] ([id number]) [address], [address] [place] [address] PHOSPHORUSon 01-16-2024 Phosphate [Mass/Vol] 3.3 mg/dL Normal 2.4-4.9 [facility] Comment on above: Performed By: #### 2 823-3 #### [facility] ([id number]) [address], [address] [place] [address] POTASSIUMon 01-16-2024 Potassium [Moles/Vol] 3.5 mmol/L Normal 3.5-5.0 [facility] Comment on above: Performed By: #### 2 823-3 #### [facility] ([id number]) [address], [address] [place] [address] Potassium [Moles/Vol] 3.8 mmol/L Normal 3.5-5.0 [facility] Comment on above: Performed By: #### C RT #### [facility] ([id number]) [address], [address] [place] [address] ANAEROBE CULTUREon 4 Bacteria identified Anaer cx Nom (Unsp spec) CULTURE RESULTS NO GROWTH 5 DAYS Normal [facility] Comment on above: Performed By: #### 2 823-3 #### [facility] ([id number]) [address], [address] [place] [address] ASPIRATE CULTUREon 4 Bacteria identified Aer cx Nom (Asp) GRAM STAIN 10 to 24 WHITE BLOOD CELLS/LPF 0 to 1 SQUAMOUS EPITHELIAL CELLS/LPF NO ORGANISMS SEEN CULTURE RESULTS NO GROWTH 5 DAYS Normal [facility] Comment on above: Performed By: #### C RT #### [facility] ([id number]) [address], [address] [place] [address] CBC AND AUTO DIFFon 01-15-20 24 ABSOLUTE BASOPHIL 0.0 X10E9/L Normal 0.0-0.2 [facility] Comment on above: Performed By: #### C RT #### [facility] ([id number]) [address], [address] [place] [address] ABSOLUTE NEUTROPHIL 8.6 X10E9/L High 1.5-6.6 [facility] Comment on above: Performed By: #### C RT #### [facility] ([id number]) [address], [address] [place] [address] Basophils/100 WBC (Bld) 0.2 % Normal [facility] Comment on above: Performed By: #### C RT #### [facility] ([id number]) [address], [address] [place] [address] Eosinophils (Bld) [#/Vol] 0.1 10*3/uL Normal 0.0-0.4 [facility] Comment on above: Performed By: #### C RT #### [facility] ([id number]) [address], [address] [place] [address] Eosinophils/100 WBC (Bld) 0.9 % Normal [facility] Comment on above: Performed By: #### C RT #### [facility] ([id number]) [address], [address] [place] [address] Erythrocyte distribution width (RBC) [Ratio] 14.9 % Normal 11.5-15.0 [facility] Comment on above: Performed By: #### C RT #### [facility] ([id number]) [address], [address] [place] [address] Hematocrit (Bld) [Volume fraction] 27.7 % Low 35-47 [facility] Comment on above: Performed By: #### C RT #### [facility] ([id number]) [address], [address] [place] [address] Hemoglobin (Bld) [Mass/Vol] 9.1 g/dL Low 11.7-15.5 [facility] Comment on above: Performed By: #### C RT #### [facility] ([id number]) [address], [address] [place] [address] Lymphocytes (Bld) [#/Vol] 1.3 10*3/uL Normal 1.0-3.5 [facility] Comment on above: Performed By: #### C RT #### [facility] ([id number]) [address], [address] [place] [address] Lymphocytes/100 WBC (Bld) 11.2 % Normal [facility] Comment on above: Performed By: #### C RT #### [facility] ([id number]) [address], [address] [place] [address] MCH (RBC) [Entitic mass] 27.3 pg Normal 27-34 [facility] Comment on above: Performed By: #### C RT #### [facility] ([id number]) [address], [address] [place] [address] MCHC (RBC) [Mass/Vol] 32.7 g/dL Normal 32-36 [facility] Comment on above: Performed By: #### C RT #### [facility] ([id number]) [address], [address] [place] [address] MCV (RBC) [Entitic vol] 83 fL Normal 80-100 [facility] Comment on above: Performed By: #### C RT #### [facility] ([id number]) [address], [address] [place] [address] Monocytes (Bld) [#/Vol] 1.2 10*3/uL High 0-0.9 [facility] Comment on above: Performed By: #### C RT #### [facility] ([id number]) [address] [place] [address] Monocytes/100 WBC (Bld) 10.5 % Normal [facility] Comment on above: Performed By: #### C RT #### [facility] ([id number]) [address] [place] [address] Neutrophils/100 WBC (Bld) 77.2 % Normal [facility] Comment on above: Performed By: #### C RT #### [facility] ([id number]) [address], [address] [place] [address] Platelet mean volume (Bld) [Entitic vol] 8.4 fL Normal 7-12 [facility] Comment on above: Performed By: #### C RT #### [facility] ([id number]) [address], [address] [place] [address] Platelets (Bld) [#/Vol] 251 10*3/uL Normal 150-450 [facility] Comment on above: Performed By: #### C RT #### [facility] ([id number]) [address], [address] [place] [address] RBC COUNT 3.32 X10E12/L Low 3.80-5.20 [facility] Comment on above: Performed By: #### C RT #### [facility] ([id number]) [address], [address] [place] [address] WBC (Bld) [#/Vol] 11.2 10*3/uL High 4.0-11.0 [facility] Comment on above: Performed By: #### C RT #### [facility] ([id number]) [address], [address] [place] [address] COMPREHENSIVE METABOLIC PANE Blaine 01-15-2024 Albumin [Mass/Vol] 3.0 g/dL Low 3.2-5.3 [facility] Comment on above: Performed By: #### C RT #### [facility] ([id number]) [address], [address] [place] [address] ALP [Catalytic activity/Vol] 97 U/L Normal 39-130 [facility] Comment on above: Performed By: #### C RT #### [facility] ([id number]) [address], [address] [place] [address] ALT [Catalytic activity/Vol] 14 U/L Normal 0-31 [facility] Comment on above: Performed By: #### C RT #### [facility] ([id number]) [address], [address] [place] [address] Anion gap [Moles/Vol] 10 mmol/L Normal 5-15 [facility] Comment on above: Performed By: #### C RT #### [facility] ([id number]) [address], [address] [place] [address] AST [Catalytic activity/Vol] 13 U/L Normal 0-41 [facility] Comment on above: Performed By: #### C RT #### [facility] ([id number]) [address], [address] [place] [address] Bilirubin [Mass/Vol] 0.7 mg/dL Normal 0.3-1.2 [facility] Comment on above: Performed By: #### C RT #### [facility] ([id number]) [address], [address] [place] [address] Calcium [Mass/Vol] 8.4 mg/dL Low 8.5-10.5 [facility] Comment on above: Performed By: #### C RT #### [facility] ([id number]) [address], [address] [place] [address] Chloride [Moles/Vol] 101 mmol/L Normal 98-109 [facility] Comment on above: Performed By: #### C RT #### [facility] ([id number]) [address] [place] [address] CO2 [Moles/Vol] 28 mmol/L Normal 22-32 [facility] Comment on above: Performed By: #### C RT #### [facility] ([id number]) [address] [place] [address] Creatinine [Mass/Vol] 0.41 mg/dL Normal 0.40-1.00 [facility] Comment on above: Result Comment: METH OD TRACEABLE TO IDMS STANDARD Performed By: #### C RT #### [facility] ([id number]) [address] [place] [address] eGFR (CKD-EPI) NON-RACE DEPENDENT >90 Normal >59 [facility] Comment on above: Result Comment: Reported eGFR is based on the CKD-EPI 2020 equation that does not use a race coefficient. Performed By: #### C RT #### [facility] ([id number]) [address] [place] [address] Glucose [Mass/Vol] 85 mg/dL Normal 65-99 [facility] Comment on above: Performed By: #### C RT #### [facility] ([id number]) [address] [place] [address] Potassium [Moles/Vol] 3.4 mmol/L Low 3.5-5.0 [facility] Comment on above: Performed By: #### C RT #### [facility] ([id number]) [address] [place] [address] Protein [Mass/Vol] 6.0 g/dL Normal 6.0-8.0 [facility] Comment on above: Performed By: #### C RT #### [facility] ([id number]) [address], [address] [place] [address] Sodium [Moles/Vol] 139 mmol/L Normal 134-146 [facility] Comment on above: Performed By: #### C RT #### [facility] ([id number]) [address] [place] [address] Urea nitrogen [Mass/Vol] 2 mg/dL Low 5-23 [facility] Comment on above: Performed By: #### C RT #### [facility] ([id number]) [address], [address] [place] [address] Fibrinogen Coagulation.deriv ed (PPP) [Mass/Vol]on 01-15-2024 FIBRINOGEN 647 mg/dL High 190-480 [facility] Comment on above: Performed By: #### C RT #### [facility] ([id number]) [address] [place] [address] POTASSIUMon 01-15-2024 Potassium [Moles/Vol] 3.5 mmol/L Normal 3.5-5.0 [facility] Comment on above: Performed By: #### C RT #### [facility] ([id number]) [address], [address] [place] [address] PROTIME AND INRon 01-15-2024 INR Coag (PPP) [Relative time] 1.6 {INR} High 0.8-1.1 [facility] Comment on above: Performed By: #### C RT #### [facility] ([id number]) [address], [address] [place] [address] PT Coag (PPP) [Time] 17.8 s High 9.8-13.2 [facility] Comment on above: Performed By: #### C RT #### [facility] ([id number]) [address] [place] [address] aPTT Coag (PPP) [Time]on aPTT Coag (Bld) [Time] 31 s Normal 26-37 [facility] Comment on above: Performed By: #### C RT #### [facility] ([id number]) [address] [place] [address] BLOOD CULTUREon 01-14-2024 Bacteria identified Aer cx Nom (Bld) SPECIMEN NOTES SUBOPTIMAL VOLUME OF BLOOD COLLECTED, RESULTS MAY BE AFFECTED. CULTURE RESULTS NO GROWTH 5 DAYS Normal [facility] Comment on above: Performed By: #### 1 7928-3 #### [facility] ([id number]) [address], [facility] [address] [place] [address] Bacteria identified Aer cx Nom (Bld) SPECIMEN NOTES SUBOPTIMAL VOLUME OF BLOOD COLLECTED, RESULTS MAY BE AFFECTED. CULTURE RESULTS NO GROWTH 5 DAYS Normal [facility] Comment on above: Performed By: #### C RT #### [facility] ([id number]) [address], [facility] [address] [place] [address] CBC AND AUTO DIFFon 01-14-20 24 ABSOLUTE BASOPHIL 0.0 X10E9/L Normal 0.0-0.2 [facility] Comment on above: Performed By: #### C BCA, 50659-7, PINR, 17938-3, CMP #### [facility] ([id number]) [address] [place] [address] ABSOLUTE NEUTROPHIL 8.2 X10E9/L High 1.5-6.6 [facility] Comment on above: Performed By: #### C BCA, 06588-9, PINR, 14420-1, CMP #### [facility] ([id number]) [address], [facility] [address] [place] [address] Basophils/100 WBC (Bld) 0.2 % Normal [facility] Comment on above: Performed By: #### C BCA, 83728-6, PINR, 72304-3, CMP #### [facility] ([id number]) [address] [place] [address] Eosinophils (Bld) [#/Vol] 0.1 10*3/uL Normal 0.0-0.4 [facility] Comment on above: Performed By: #### C BCA, 55437-7, PINR, 69463-3, CMP #### [facility] ([id number]) [address], [address] [place] [address] Eosinophils/100 WBC (Bld) 0.9 % Normal [facility] Comment on above: Performed By: #### Chantal BISHOP, 75576-7, PINR, 95907-8, CMP #### [facility] ([id number]) [address] [address] [place] [address] Erythrocyte distribution width (RBC) [Ratio] 15.2 % High 11.5-15.0 [facility] Comment on above: Performed By: #### Chantal BISHOP, 22019-8, PINR, 24561-2, CMP #### [facility] ([id number]) [address] [address] [place] [address] Hematocrit (Bld) [Volume fraction] 31.0 % Low 35-47 [facility] Comment on above: Performed By: #### Chantal BCA, 02407-9, PINR, 14320-9, CMP #### [facility] ([id number]) [address] [place] [address] Hemoglobin (Bld) [Mass/Vol] 10.3 g/dL Low 11.7-15.5 [facility] Comment on above: Performed By: #### Chantal BCA, 87625-2, PINR, 42246-6, CMP #### [facility] ([id number]) [address] [address] [place] [address] Lymphocytes (Bld) [#/Vol] 1.3 10*3/uL Normal 1.0-3.5 [facility] Comment on above: Performed By: #### Chantal BCA, 96543-4, PINR, 60057-1, CMP #### [facility] ([id number]) [address] [place] [address] Lymphocytes/100 WBC (Bld) 12.6 % Normal [facility] Comment on above: Performed By: #### Chantal BISHOP, 41383-0, PINR, 75917-5, CMP #### [facility] ([id number]) [address] [place] [address] MCH (RBC) [Entitic mass] 27.9 pg Normal 27-34 [facility] Comment on above: Performed By: #### Chantal BCA, 27632-1, PINR, 78080-0, CMP #### [facility] ([id number]) [address] [place] [address] MCHC (RBC) [Mass/Vol] 33.2 g/dL Normal 32-36 [facility] Comment on above: Performed By: #### Chantal BISHOP, 23601-7, PINR, 46576-0, CMP #### [facility] ([id number]) [address] [place] [address] MCV (RBC) [Entitic vol] 84 fL Normal 80-100 [facility] Comment on above: Performed By: #### Chantal BCA, 41961-7, PINR, 26571-1, CMP #### [facility] ([id number]) [address] [place] [address] Monocytes (Bld) [#/Vol] 0.9 10*3/uL Normal 0-0.9 [facility] Comment on above: Performed By: #### Chantal BCA, 88958-6, PINR, 65768-2, CMP #### [facility] ([id number]) [address] [place] [address] Monocytes/100 WBC (Bld) 8.9 % Normal [facility] Comment on above: Performed By: #### Chantal BISHOP, 35938-6, PINR, 31317-6, CMP #### [facility] ([id number]) [address], [facility] [address] [place] [address] Neutrophils/100 WBC (Bld) 77.4 % Normal [facility] Comment on above: Performed By: #### Chantal BCA, 63358-4, PINR, 53088-1, CMP #### [facility] ([id number]) [address], [facility] [address] [place] [address] Platelet mean volume (Bld) [Entitic vol] 8.3 fL Normal 7-12 [facility] Comment on above: Performed By: #### Chantal BISHOP, 38046-5, PINR, 30711-9, CMP #### [facility] ([id number]) [address], [facility] [address] [place] [address] Platelets (Bld) [#/Vol] 250 10*3/uL Normal 150-450 [facility] Comment on above: Performed By: #### Chantal BISHOP, 91143-1, PINR, 69961-8, CMP #### [facility] ([id number]) [address], [facility] [address] [place] [address] RBC COUNT 3.69 X10E12/L Low 3.80-5.20 [facility] Comment on above: Performed By: #### C BCA, 81163-4, PINR, 32079-7, CMP #### [facility] ([id number]) [address] [address] [place] [address] WBC (Bld) [#/Vol] 10.5 10*3/uL Normal 4.0-11.0 [facility] Comment on above: Performed By: #### Chantal BISHOP, 12254-4, PINR, 33332-7, CMP #### [facility] ([id number]) [address], [address] [place] [address] COMPREHENSIVE METABOLIC PANE [place] 01-14-2024 Albumin [Mass/Vol] 3.2 g/dL Normal 3.2-5.3 [facility] Comment on above: Performed By: #### C BCA, 58670-3, PINR, 19372-1, CMP #### [facility] ([id number]) [address], [address] [place] [address] ALP [Catalytic activity/Vol] 103 U/L Normal 39-130 [facility] Comment on above: Performed By: #### C BCA, 14009-7, PINR, 30975-7, CMP #### [facility] ([id number]) [address], [address] [place] [address] ALT [Catalytic activity/Vol] 25 U/L Normal 0-31 [facility] Comment on above: Performed By: #### C BCA, 81257-0, PINR, 87110-2, CMP #### [facility] ([id number]) [address], [address] [place] [address] Anion gap [Moles/Vol] 9 mmol/L Normal 5-15 [facility] Comment on above: Performed By: #### C BCA, 28058-2, PINR, 87307-7, CMP #### [facility] ([id number]) [address], [address] [place] [address] AST [Catalytic activity/Vol] 26 U/L Normal 0-41 [facility] Comment on above: Performed By: #### C BCA, 44971-1, PINR, 30012-0, CMP #### [facility] ([id number]) [address], [address] [place] [address] Bilirubin [Mass/Vol] 0.6 mg/dL Normal 0.3-1.2 [facility] Comment on above: Performed By: #### C BCA, 43991-7, PINR, 11789-1, CMP #### [facility] ([id number]) [address], [facility] [address] [place] [address] Calcium [Mass/Vol] 8.2 mg/dL Low 8.5-10.5 [facility] Comment on above: Performed By: #### C BCA, 19723-7, PINR, 57584-4, CMP #### [facility] ([id number]) [address], [facility] [address] [place] [address] Chloride [Moles/Vol] 102 mmol/L Normal 98-109 [facility] Comment on above: Performed By: #### C BCA, 48043-7, PINR, 11742-4, CMP #### [facility] ([id number]) [address] [address] CO2 [Moles/Vol] 28 mmol/L Normal 22-32 [facility] Comment on above: Performed By: #### C BCA, 51941-2, PINR, 87470-5, CMP #### [facility] ([id number]) [address] [address] Creatinine [Mass/Vol] 0.48 mg/dL Normal 0.40-1.00 [facility] Comment on above: Result Comment: METH OD TRACEABLE TO IDMS STANDARD Performed By: #### C BCA, 85307-4, PINR, 23117-4, CMP #### [facility] ([id number]) [address] [address] [place] [address] eGFR (CKD-EPI) NON-RACE DEPENDENT >90 Normal >59 [facility] Comment on above: Result Comment: Reported eGFR is based on the CKD-EPI 2020 equation that does not use a race coefficient. Performed By: #### C BCA, 40703-9, PINR, 36383-7, CMP #### [facility] ([id number]) [address], [address] [place] [address] Glucose [Mass/Vol] 92 mg/dL Normal 65-99 [facility] Comment on above: Performed By: #### C BCA, 16158-0, PINR, 57191-0, CMP #### [facility] ([id number]) [address], [address] [place] [address] Potassium [Moles/Vol] 3.2 mmol/L Low 3.5-5.0 [facility] Comment on above: Performed By: #### C BCA, 24969-1, PINR, 92004-5, CMP #### [facility] ([id number]) [address], [address] [place] [address] Protein [Mass/Vol] 6.6 g/dL Normal 6.0-8.0 [facility] Comment on above: Performed By: #### C BCA, 67659-1, PINR, 89528-3, CMP #### [facility] ([id number]) [address], [address] [place] [address] Sodium [Moles/Vol] 139 mmol/L Normal 134-146 [facility] Comment on above: Performed By: #### C BCA, 01273-2, PINR, 70202-8, CMP #### [facility] ([id number]) [address], [address] [place] [address] Urea nitrogen [Mass/Vol] 3 mg/dL Low 5-23 [facility] Comment on above: Performed By: #### C BCA, 12479-4, PINR, 20487-9, CMP #### [facility] ([id number]) [address], [address] [place] [address] Fibrinogen Coagulation.deriv ed (PPP) [Mass/Vol]on 01-14-2024 FIBRINOGEN 803 mg/dL High 190-480 [facility] Comment on above: Performed By: #### C BCA, 10505-6, PINR, 18380-3, CMP #### [facility] ([id number]) [address], [address] [place] [address] POTASSIUMon 01-14-2024 Potassium [Moles/Vol] 3.9 mmol/L Normal 3.5-5.0 [facility] Comment on above: Performed By: #### 2 823-3 #### [facility] ([id number]) [address], [address] [place] [address] PROTIME AND INRon 01-14-2024 INR Coag (PPP) [Relative time] 1.2 {INR} High 0.8-1.1 [facility] Comment on above: Performed By: #### C BCA, 97063-4, PINR, 16820-4, CMP #### [facility] ([id number]) [address], [address] [place] [address] PT Coag (PPP) [Time] 14.3 s High 9.8-13.2 [facility] Comment on above: Performed By: #### C BCA, 25816-7, PINR, 05866-8, CMP #### [facility] ([id number]) [address], [address] [place] [address] aPTT Coag (PPP) [Time]on aPTT Coag (Bld) [Time] 30 s Normal 26-37 [facility] Comment on above: Performed By: #### C BCA, 44161-2, PINR, 92958-8, CMP #### [facility] ([id number]) [address], [address] [place] [address] APTTon 01-13-2024 ACTIVATED PARTIAL THROMBOPLASTIN TIME IN PPP BY COAGULATION ASSAY 37.7 Seconds High 25.0-35.0 [facility] Comment on above: Result Comment: Clin ical significance of the APTT is questionable in the presence of heparin. Performed By: #### L [id number] #### [facility] [address] [place] [address] BLOOD CULTUREon 01-13-2024 Bacteria identified Cx Nom (Bld) No growth at 5 days Normal [facility] Comment on above: Performed By: #### L [id number] #### [facility] ([facility]) [address] [place] [address] CBC WITH AUTO DIFFERENTIALon 01-13-2024 Basophils (Bld) [#/Vol] 0.03 10*3/uL Normal 0.00-0.20 [facility] Comment on above: Performed By: #### L [id number] #### [facility] ([facility]) [address] [place] [address] Basophils/100 WBC (Bld) 0.2 % Normal 0.0-1.0 [facility] Comment on above: Performed By: #### L [id number] #### [facility] ([facility]) [address] [place] [address] Eosinophils (Bld) [#/Vol] 0.05 10*3/uL Normal 0.00-0.50 [facility] Comment on above: Performed By: #### L [id number] #### [facility] ([facility]) [address] [place] [address] Eosinophils/100 WBC (Bld) 0.4 % Normal 0.0-6.0 [facility] Comment on above: Performed By: #### L [id number] #### [facility] ([facility]) [address] [place] [address] Erythrocyte distribution width (RBC) [Ratio] 14.0 % Normal 11.5-15.0 [facility] Comment on above: Performed By: #### L [id number] #### [facility] ([facility]) [address] [place] [address] ERYTHROCYTE MEAN CORPUSCULAR HEMOGLOBIN CONCENTRATION (G/DL) BY AUTOMATED 32.9 g/dL Normal 32.0-35.0 [facility] Comment on above: Performed By: #### L [id number] #### [facility] ([facility]) [address] [place] [address] Hematocrit (Bld) [Volume fraction] 32.8 % Low 36.0-48.0 [facility] Comment on above: Performed By: #### L [id number] #### [facility] ([facility]) [address] [place] [address] Hemoglobin (Bld) [Mass/Vol] 10.8 g/dL Low 12.0-15.0 [facility] Comment on above: Performed By: #### L [id number] #### [facility] ([facility]) [address] [place] [address] Immature granulocytes (Bld) [#/Vol] 0.05 10*3/uL Normal 0.00-0.20 [facility] Comment on above: Performed By: #### L [id number] #### [facility] ([facility]) [address] [place] [address] Immature granulocytes/100 WBC (Bld) 0.4 % Normal 0.0-1.0 [facility] Comment on above: Performed By: #### L [id number] #### [facility] ([facility]) [address] [place] [address] Lymphocytes (Bld) [#/Vol] 1.38 10*3/uL Normal 1.20-4.00 [facility] Comment on above: Performed By: #### L [id number] #### [facility] ([facility]) [address] [place] [address] Lymphocytes/100 WBC (Bld) 10.9 % Low 20.0-45.0 [facility] Comment on above: Performed By: #### L [id number] #### [facility] ([facility]) [address] [place] [address] MCH (RBC) [Entitic mass] 27.6 pg Normal 27.0-33.0 [facility] Comment on above: Performed By: #### L [id number] #### [facility] ([facility]) [address] [place] [address] MCV (RBC) [Entitic vol] 83.7 fL Normal 82.0-98.0 [facility] Comment on above: Performed By: #### L [id number] #### [facility] ([facility] [address] [place] [address] Monocytes (Bld) [#/Vol] 0.98 10*3/uL Normal 0.10-1.00 [facility] Comment on above: Performed By: #### L [id number] #### [facility] ([facility]) [address] [place] [address] Monocytes/100 WBC (Bld) 7.8 % Normal 5.0-12.0 [facility] Comment on above: Performed By: #### L [id number] #### [facility] ([facility]) [address] [place] [address] Neutrophils (Bld) [#/Vol] 10.15 10*3/uL High 1.60-7.60 [facility] Comment on above: Performed By: #### L [id number] #### [facility] ([facility]) [address] [place] [address] Neutrophils/100 WBC (Bld) 80.3 % High 40.0-72.0 [facility] Comment on above: Performed By: #### L [id number] #### [facility] ([facility]) [address] [place] [address] NRBC (PER 100 WBCS) BY AUTOMATED COUNT 0.0 % Normal 0 [facility] Comment on above: Performed By: #### L [id number] #### [facility] ([facility]) [address] [place] [address] PLATELETS (10*3/UL) IN BLOOD AUTOMATED COUNT 297 10*3/uL Normal 150-400 [facility] Comment on above: Performed By: #### L [id number] #### [facility] ([facility]) [address] [place] [address] RBC (Bld) [#/Vol] 3.92 10*6/uL Normal 3.80-5.00 [facility] Comment on above: Performed By: #### L [id number] #### [facility] ([facility]) [address] [place] [address] WBC (Bld) [#/Vol] 12.64 10*3/uL High 4.00-10.60 [facility] Comment on above: Performed By: #### L [id number] #### [facility] ([facility]) [address] [place] [address] COMPREHENSIVE METABOLIC PANE [place] 01-13-2024 Albumin [Mass/Vol] 3.7 g/dL Normal 3.5-5.7 [facility] Comment on above: Performed By: #### L [id number] #### [facility] ([facility]) [address] [place] [address] ALP [Catalytic activity/Vol] 115 U/L High 34-104 [facility] Comment on above: Performed By: #### L [id number] #### [facility] ([facility]) [address] [place] [address] ALT [Catalytic activity/Vol] 30 U/L Normal 7-52 [facility] Comment on above: Performed By: #### L [id number] #### [facility] ([facility]) [address] [place] [address] Anion gap [Moles/Vol] 13 mmol/L Normal 7-20 [facility] Comment on above: Performed By: #### L [id number] #### [facility] ([facility]) [address] [place] [address] AST [Catalytic activity/Vol] 30 U/L Normal 13-39 [facility] Comment on above: Performed By: #### L [id number] #### [facility] ([facility]) [address] [place] [address] Bilirubin [Mass/Vol] 0.6 mg/dL Normal 0.3-1.0 [facility] Comment on above: Performed By: #### L [id number] #### [facility] ([facility]) [address] [place] [address] Calcium [Mass/Vol] 8.8 mg/dL Normal 8.6-10.3 [facility] Comment on above: Performed By: #### L [id number] #### [facility] ([facility]) [address] [place] [address] Chloride [Moles/Vol] 94 mmol/L Low 98-107 [facility] Comment on above: Performed By: #### L [id number] #### [facility] ([facility]) [address] [place] [address] CO2 [Moles/Vol] 32 mmol/L High 21-31 [facility] Comment on above: Performed By: #### L [id number] #### [facility] ([facility]) [address] [place] [address] Creatinine [Mass/Vol] 0.69 mg/dL Normal 0.60-1.20 [facility] Comment on above: Performed By: #### L [id number] #### [facility] ([facility]) [address] [place] [address] GLOMERULAR FILTRATION RATE ML/MIN/1.73 SQ M.PREDICTED 121.2 mL/min/1.73m*2 Normal >60.0 [facility] Comment on above: Result Comment: The [facility]???s estimated glomerular filtration rate (eGFR) will [...] individuals. Performed By: #### L [id number] #### [facility] ([facility]) [address] [place] [address] Glucose [Mass/Vol] 77 mg/dL Normal 70-100 [facility] Comment on above: Performed By: #### L [id number] #### [facility] ([facility]) [address] [place] [address] Potassium [Moles/Vol] 2.7 mmol/L Invalid Interpretation Code 3.5-5.1 [facility] Comment on above: Performed By: #### L [id number] #### [facility] ([facility]) [address] [place] [address] Protein [Mass/Vol] 7.9 g/dL Normal 6.0-8.3 [facility] Comment on above: Performed By: #### L [id number] #### [facility] ([facility]) [address] [place] [address] Sodium [Moles/Vol] 136 mmol/L Normal 136-145 [facility] Comment on above: Performed By: #### L [id number] #### [facility] ([facility]) [address] [place] [address] Urea nitrogen [Mass/Vol] 9 mg/dL Normal 7-25 [facility] Comment on above: Performed By: #### L [id number] #### [facility] ([facility]) [address] [place] [address] UREA NITROGEN/CREATININE (MASS RATIO) IN SER/PLAS 13.0 Normal [facility] Comment on above: Performed By: #### L [id number] #### [facility] ([facility]) [address] [place] [address] CREATININEon 01-13-2024 Creatinine [Mass/Vol] 0.53 mg/dL Normal 0.40-1.00 [facility] Comment on above: Result Comment: METH OD TRACEABLE TO IDMS STANDARD Performed By: #### C RT #### [facility] ([id number]) [address] [place] [address] eGFR (CKD-EPI) NON-RACE DEPENDENT >90 Normal >59 [facility] Comment on above: Result Comment: Reported eGFR is based on the CKD-EPI 2020 equation that does not use a race coefficient. Performed By: #### C RT #### [facility] ([id number]) [address] [place] [address] CT ABDOMEN PELVIS W IV CONTR Marichuy [...] achievable Electronically signed: Arsalan Bales MD. Normal [facility] CTA CHEST W IV CONTRASTon CTA [...] reasonably achievable Electronically signed: Arsalan Bales MD. 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 Pt is also is having some chest pain that has been on and off. She stated this is the worse that she has had it. [facility] EDPROVon 01-13-2024 EDPROV HPI Chief Complaint Patient presents with Chest Pain Post-op Problem Pt is a 28yo F who states she had a total hysterectomy on 11/20/23 and has been having complications with increasing pain since. 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 Pt states she is now running a fever of 102 and endorses chills, body aches and chest pain which began last night. Denies vaginal bleeding/discharge, n/v/d, urinary complaints. History provided by: Patient Arpit Coma Scale Score: 15 Patient History No [...] Course as of 01/14/242229 Sat Jan 13, [address] Linn at [facility], he accepted pt for transfer. [BM] ED Course User Index [BM] Divine Coleman NP Diagnoses as of 01/14/242229 Pelvic abscess in female Sepsis without acute organ dysfunction, due to unspecified organism ([facility]) Medical Decision Making Attestion Divine Coleman, WIN 01/14/24 2231 Normal [facility] LACTIC ACID WITH 4 HOUR REFL EXon 01-13-2024 LACTATE (MMOL/L) IN SER/PLAS 1.3 mmol/L Normal 0.5-2.2 [facility] Comment on above: Performed By: #### L [id number] #### [facility] ([facility]) [address] [place] [address] MAGNESIUMon 01-13-2024 Magnesium [Mass/Vol] 2.5 mg/dL Normal 1.9-2.7 [facility] Comment on above: Performed By: #### L [id number] #### [facility] ([facility]) [address] [place] [address] POC CHEM7 W/ HCTon Chloride [Moles/Vol] 99 mmol/L Normal 98-109 [facility] Comment on above: Performed By: #### I 8XCA #### [facility] ([id number]) [address] [place] [address] CO2 [Moles/Vol] 27 mmol/L Normal 22-32 [facility] Comment on above: Performed By: #### I 8XCA #### [facility] ([id number]) [address] [place] [address] Creatinine [Mass/Vol] 0.6 mg/dL Normal 0.4-1.0 [facility] Comment on above: Result Comment: METH OD TRACEABLE TO IDMS STANDARD Performed By: #### I 8XCA #### [facility] ([id number]) [address] [place] [address] eGFR (CKD-EPI) NON-RACE DEPENDENT >90 Normal >59 [facility] Comment on above: Result Comment: Reported eGFR is based on the CKD-EPI 2020 equation that does not use a race coefficient. Performed By: #### I 8XCA #### [facility] ([id number]) [address] [place] [address] Glucose [Mass/Vol] 98 mg/dL Normal 65-99 [facility] Comment on above: Performed By: #### I 8XCA #### [facility] ([id number]) [address] [place] [address] Hematocrit (Bld) [Volume fraction] 29 % Low 35-47 [facility] Comment on above: Performed By: #### I 8XCA #### [facility] ([id number]) [address] [place] [address] PORTABLE BUN <6 Low 6-23 [facility] Comment on above: Performed By: #### I 8XCA #### [facility] ([id number]) [address] [place] [address] Potassium [Moles/Vol] 2.9 mmol/L Low 3.5-5.0 [facility] Comment on above: Performed By: #### I 8XCA #### [facility] ([id number]) [address] [place] [address] Sodium [Moles/Vol] 138 mmol/L Normal 134-146 [facility] Comment on above: Performed By: #### I 8XCA #### [facility] ([id number]) [address] [place] [address] POTASSIUMon 01-13-2024 Potassium [Moles/Vol] 3.1 mmol/L Low 3.5-5.0 [facility] Comment on above: Performed By: #### 2 823-3 #### [facility] ([id number]) [address] [place] [address] PROTIME-INRon 01-13-2024 INR IN PPP BY COAGULATION ASSAY 1.12 High 0.90-1.10 [facility] Comment on above: Result Comment: ACCC [...] 1995;[id number]. Performed By: #### L [id number] #### [facility] ([facility]) [address] [place] [address] PROTHROMBIN TIME (PT) IN PPP BY COAGULATION ASSAY 14.4 Seconds Normal 12.3-14.8 [facility] Comment on above: Performed By: #### L [id number] #### [facility] ([facility]) [address] [place] [address] TROPONIN Ion 01-13-2024 Troponin I.cardiac [Mass/Vol] 0.02 ng/mL Normal 0.00-0.04 [facility] Comment on above: Performed By: #### L [id number] #### [facility] ([facility]) [address] [place] [address] URINALYSIS MICROSCOPIC WITH REFLEX CULTUREon 01-13-2024 CASTS IN URINE Normal [facility] Comment on above: Performed By: #### L [id number] #### [facility] ([facility]) [address] [place] [address] CRYSTALS IN URINE Normal [facility] Comment on above: Performed By: #### L [id number] #### [facility] ([facility]) [address] [place] [address] MUCUS (#/HPF) IN URINE SEDIMENT Many Abnormal None Seen, Occasional, Few [facility] Comment on above: Performed By: #### L [id number] #### [facility] ([facility]) [address] [place] [address] OTHER MICROSCOPIC ELEMENTS Normal [facility] Comment on above: Performed By: #### L [id number] #### [facility] ([facility]) [address] [place] [address] RBC (#/HPF) IN URINE SEDIMENT 6-10 Abnormal None Seen [facility] Comment on above: Performed By: #### L [id number] #### [facility] ([facility]) [address] [place] [address] SQUAMOUS EPITHELIAL CELLS (#/HPF) IN URINE SEDIMENT Moderate Abnormal None Seen, Occasional [facility] Comment on above: Performed By: #### L [id number] #### [facility] ([facility]) [address] [place] [address] WBC (LEUKOCYTE) (#/HPF) IN URINE SEDIMENT 11-20 Abnormal None Seen [facility] Comment on above: Performed By: #### L [id number] #### [facility] ([facility]) [address] [place] [address] URINALYSIS WITH REFLEX CULTU REon 01-13-2024 BILIRUBIN, TOTAL PRESENCE IN URINE Negative Normal Negative [facility] Comment on above: Performed By: #### L [id number] #### [facility] ([facility]) [address] [place] [address] Clarity (U) Slightly Cloudy Abnormal Clear [facility] Comment on above: Performed By: #### L [id number] #### [facility] ([facility]) [address] [place] [address] Color (U) Cassidy Abnormal Yellow [facility] Comment on above: Performed By: #### L [id number] #### [facility] ([facility]) [address] [place] [address] Glucose (U) [Mass/Vol] Negative Normal Negative [facility] Comment on above: Performed By: #### L [id number] #### [facility] ([facility]) [address] [place] [address] HEMOGLOBIN PRESENCE IN URINE Small Abnormal Negative [facility] Comment on above: Performed By: #### L [id number] #### [facility] ([facility]) [address] [place] [address] Ketones Ql (U) Negative Normal Negative [facility] Comment on above: Performed By: #### L [id number] #### [facility] ([facility]) [address] [place] [address] LEUKOCYTE ESTERASE PRESENCE IN URINE BY TEST STRIP Small Abnormal Negative [facility] Comment on above: Performed By: #### L [id number] #### [facility] ([facility]) [address] [place] [address] NITRITE PRESENCE IN URINE Negative Normal Negative [facility] Comment on above: Performed By: #### L [id number] #### [facility] ([facility]) [address] [place] [address] pH (U) 5.0 [pH] Normal 5.0-8.0 [facility] Comment on above: Performed By: #### L [id number] #### [facility] ([facility]) [address] [place] [address] Protein (U) [Mass/Vol] 30 mg/dL Abnormal Negative [facility] Comment on above: Performed By: #### L [id number] #### [facility] ([facility]) [address] [place] [address] Specific gravity (U) [Rel density] 1.020 Normal 1.015-1.020 [facility] Comment on above: Performed By: #### L [id number] #### [facility] ([facility]) [address] [place] [address] UROBILINOGEN (EU/DL) IN URINE 4.0 EU/dL Abnormal Negative [facility] Comment on above: Performed By: #### L [id number] #### [facility] ([facility]) [address] [place] [address] Activated partial thrombopla stin time (aPTT) in platelet poor plasma by coagulation aOrdered By: Nikhil Quiñones on 01-08-2024 aPTT Coag (PPP) [Time] 35.0 s 25.1-36.5 [facility] Comment on above: A hematocrit value g reater than 55% may lead to inaccurate results in coagulation testing. Patients having hematocrit values >55% require a special collection tube for coagulation studies. Please contact the laboratory at [phone] for redraw instructions. Alanine aminotransferase [En zymatic activity/volume] in Serum or PlasmaOrdered By: Nikhil Quiñones on 01-08-2024 ALT [Catalytic activity/Vol] 13 U/L Normal 7-52 [facility] Comment on above: Performed By: #### C BC, LIPASE, HEPATIC, PT, BMP, PTT, CUBLD, LACTIC ####[facility] [place] [address] [facility] Albumin [Mass/volume] in Ser um or Plasma by Bromocresol green (BCG) dye binding methoOrdered By: Nikhil Quiñones on 01-08-2024 Albumin BCG dye [Mass/Vol] 4.4 g/dL 3.5-5.7 [facility] Alkaline phosphatase [Enzyma tic activity/volume] in Serum or PlasmaOrdered By: Nikhil Quiñones on 01-08-2024 ALP [Catalytic activity/Vol] 66 U/L Normal 34-104 [facility] Comment on above: Performed By: #### C BC, LIPASE, HEPATIC, PT, BMP, PTT, CUBLD, LACTIC ####[place] [address] [place] [address] [facility] Aspartate aminotransferase [ Enzymatic activity/volume] in Serum or PlasmaOrdered By: Nikhil Quiñones on 01-08-2024 AST [Catalytic activity/Vol] 16 U/L Normal 13-39 [facility] Comment on above: Performed By: #### C BC, LIPASE, HEPATIC, PT, BMP, PTT, CUBLD, LACTIC ####[facility] [address] Automated basophil %Ordered By: Nikhil Quiñones on 01-08-2024 Basophils/100 WBC (Bld) 0.4 % Normal . [facility] Comment on above: Performed By: #### C BC, LIPASE, HEPATIC, PT, BMP, PTT, CUBLD, LACTIC ####[address] Automated basophil countOrde red By: Nikhil Quiñones on 01-08-2024 Basophils (Bld) [#/Vol] 0.0 10*3/uL Normal 0.0-0.2 [facility] Comment on above: Result Comment: PERF ORMED BY: [facility] [address] [place] [address] PATHOLOGIST INFORMATION SECURITY DIRECTOR LAIRSSA GUERRA M.D. Performed By: #### C BC, LIPASE, HEPATIC, PT, BMP, PTT, CUBLD, LACTIC ####[address] Automated blood monocyte cou ntOrdered By: Nikhil Quiñones on 01-08-2024 Monocytes (Bld) [#/Vol] 0.6 10*3/uL Normal 0.0-0.8 [facility] Comment on above: Performed By: #### C BC, LIPASE, HEPATIC, PT, BMP, PTT, CUBLD, LACTIC ####[address] Automated eosinophil %Ordere d By: Nikhil Quiñones on 01-08-2024 Eosinophils/100 WBC (Bld) 0.1 % Normal . [facility] Comment on above: Performed By: #### C BC, LIPASE, HEPATIC, PT, BMP, PTT, CUBLD, LACTIC ####[address] Automated eosinophil countOr dered By: Nikhil Quiñones on 01-08-2024 Eosinophils (Bld) [#/Vol] 0.0 10*3/uL Normal 0.0-0.45 [facility] Comment on above: Performed By: #### C BC, LIPASE, HEPATIC, PT, BMP, PTT, CUBLD, LACTIC ####[place] [address] Automated monocyte %Ordered By: Nikhil Quiñones on 01-08-2024 Monocytes/100 WBC (Bld) 8.0 % Normal . [facility] Comment on above: Performed By: #### C BC, LIPASE, HEPATIC, PT, BMP, PTT, CUBLD, LACTIC ####[place] [address] Automated neutrophil %Ordere d By: Nikhil Quiñones on 01-08-2024 Neutrophils/100 WBC (Bld) 76.6 % Normal . [facility] Comment on above: Performed By: #### C BC, LIPASE, HEPATIC, PT, BMP, PTT, CUBLD, LACTIC ####[place] [address] Basic Metabolic Panelon 12-18 Creatinine Clr Calc Pharmacy 127.27 Normal [facility] Comment on above: Performed By: #### C BC, LIPASE, HEPATIC, PT, BMP, PTT, CUBLD, LACTIC ####[address] GFR/1.73 sq M.predicted MDRD (S/P/Bld) [Vol rate/Area] mL/min/{1.73_m2} Normal [facility] Comment on above: Performed By: #### C BC, LIPASE, HEPATIC, PT, BMP, PTT, CUBLD, LACTIC ####[address] Bilirubin Test strip Ql (U)O rdered By: Nikhil Quiñones on 01-08-2024 Bilirubin Ql (U) Negative Negative [facility] Bilirubin.direct [Mass/volum e] in Serum or PlasmaOrdered By: Nikhil Quiñones on 01-08-2024 Bilirubin.direct [Mass/Vol] 0.00 mg/dL Low 0.03-0.18 [facility] Comment on above: If the DBIL is less than 0.1, IBIL is not able to becalculated. Bilirubin.total [Mass/volume ] in Serum or PlasmaOrdered By: Nikhil Quiñones on 01-08-2024 Bilirubin [Mass/Vol] 0.3 mg/dL Normal 0.3-1.0 [facility] Comment on above: Performed By: #### C BC, LIPASE, HEPATIC, PT, BMP, PTT, CUBLD, LACTIC ####[facility] [id number] [place] [id number] [facility] Blood Cultureon 01-08-2024 Bacteria identified Cx Nom (Bld) NO GROWTH 5 DAYS PERFORMED BY: [facility] [address] [place] [address] PATHOLOGIST INFORMATION SECURITY DIRECTOR LARISSA GUERRA M.D. Normal [facility] Comment on above: Performed By: #### C BC, LIPASE, HEPATIC, PT, BMP, PTT, CUBLD, LACTIC ####[facility] [id number] COVID CepheidOrdered By: Joselito Quiñones on 01-08-2024 SARS-CoV-2 (COVID-19) Ab IA Ql Negative Negative [facility] Comment on above: This is a duplicate Cepheid Xpert Xpress CoV-2/Flu/RSV Plus RNA by RT-PCR result to be used for statistical tracking purpose only. SARS-CoV-2 (COVID-19) RNA MARICEL+probe Ql (Unsp spec) [facility] COVID-19 / Flu A/B / RSV [...] or Cepheid Disclaimer revoked sooner. PERFORMED BY: [place] [address] PATHOLOGIST INFORMATION SECURITY DIRECTOR LARISSA GUERRA M.D. Normal [facility] Comment on above: Performed By: #### C OVID19 FLU RSV, CEPHEID NEG ####[facility] [id number] [place], [place] [id number] [facility] CT abdomen pelvis w conon CT abdomen pelvis w con [facility] [address] [place] [address] CT Scan Report Signed Patient: Barbra Claros MR#: [id number] : 1995 Acct:[id number] Age/Sex: 28 / F ADM Date: 01/08/24 Loc: ER Room: Type: [facility] ER Attending Dr: Copies to: Nikhil Quiñones [...] abscess. Impression dictated by: Leonard Maria Jr., DJuddOJudd01/08/2024 2:50 PM Dictation Location: [place] [address] Transcribed By: [facility] 01/08/24 1450 Dictated By: Leonard Maria Jr, DO 01/08/24 1427 Signed By: 01/08/24 1450 Normal [facility] Calcium [Mass/volume] in Ser um or PlasmaOrdered By: Nikhil Quiñones on 01-08-2024 Calcium [Mass/Vol] 9.5 mg/dL Normal 8.6-10.3 [facility] Comment on above: Performed By: #### C BC, LIPASE, HEPATIC, PT, BMP, PTT, CUBLD, LACTIC ####[facility] [id number] [place] [address] [facility] Carbon dioxide, total [Moles /volume] in Serum or PlasmaOrdered By: Nikhil Quiñones on 01-08-2024 CO2 [Moles/Vol] 27.6 mmol/L Normal 21.0-31.0 [facility] Comment on above: Performed By: #### C BC, LIPASE, HEPATIC, PT, BMP, PTT, CUBLD, LACTIC ####[place] [address] Cepheid COVID PCR Negativeon 01-08-2024 SARS-CoV-2 (COVID-19) RNA MARICEL+probe Ql (Unsp spec) Negative Normal Negative [facility] Comment on above: Result Comment: This is a duplicate Cepheid Xpert Xpress CoV-2/Flu/RSV Plus RNA by RT-PCR result to be used for statistical tracking purpose only. PERFORMED BY: [place] [address] PATHOLOGIST INFORMATION SECURITY DIRECTOR LARISSA GUERRA M.D. Performed By: #### C OVID19 FLU RSV, CEPHEID NEG ####[address] Chlamydia/GC Amplificationon 01-08-2024 Chlamydia Trachomotis, MARICEL Negative Normal Negative [facility] Comment on above: Order Comment: SOURC E OF SPECIMEN: Genital Performed By: #### G CCHLAMAMP #### [facility] , #### FS, CUGEN #### [address] Neisseria Gonorrhoeae, MARICEL Negative Normal Negative [facility] Comment on above: Order Comment: SOURC E OF SPECIMEN: Genital Result Comment: Perf ormed at: =G - [facility] [address] [id number] Gear Generator Set Up Operator: Katherine Coleman MD, Phone: [phone] PERFORMED BY: [place] [address] PATHOLOGIST INFORMATION SECURITY DIRECTOR LARISSA GUERRA M.D. Performed By: #### G CCHLAMAMP #### [facility] , #### FS, CUGEN #### [facility] [address] [place] [address] Chloride [Moles/volume] in S karla or PlasmaOrdered By: Nikhil Quiñones on 01-08-2024 Chloride [Moles/Vol] 102 mmol/L Normal 98-107 [facility] Comment on above: Performed By: #### C BC, LIPASE, HEPATIC, PT, BMP, PTT, CUBLD, LACTIC ####[address] Color of Urine by AutoOrdere d By: Nikhil Quiñones on 01-08-2024 Color (U) Yellow Normal Yellow [facility] Comment on above: Order Comment: Name Collection Type:: Clean-Voided Midstream Performed By: #### U A ####[address] Complete Blood Count Auto Di ffon 01-08-2024 Mean Corpuscular HGB Conc 33.5 g/dL Normal 32.0-35.0 [facility] Comment on above: Performed By: #### C BC, LIPASE, HEPATIC, PT, BMP, PTT, CUBLD, LACTIC ####[address] Monocytes/100 WBC (Bld) 21.47 % High 0.00-20.00 [facility] Comment on above: Result Comment: For adults in ED, MDW > 20.0 may be associated with a higher risk of sepsis during the first 12 hrs of hospital admission Performed By: #### C BC, LIPASE, HEPATIC, PT, BMP, PTT, CUBLD, LACTIC ####[address] NRBC% 0.1 /100{WBC} Normal 0-0.5 [facility] Comment on above: Performed By: #### C BC, LIPASE, HEPATIC, PT, BMP, PTT, CUBLD, LACTIC ####[address] Creatinine [Mass/volume] in Serum or PlasmaOrdered By: Nikhil Quiñones on 01-08-2024 Creatinine [Mass/Vol] 0.63 mg/dL Normal 0.60-1.20 [facility] Comment on above: Performed By: #### C BC, LIPASE, HEPATIC, PT, BMP, PTT, CUBLD, LACTIC ####[address] Erythrocyte distribution wid th [Ratio] by Automated countOrdered By: Nikhil Quiñones on 01-08-2024 Erythrocyte distribution width (RBC) [Ratio] 15.2 % Normal 11.9-15.3 [facility] Comment on above: Performed By: #### C BC, LIPASE, HEPATIC, PT, BMP, PTT, CUBLD, LACTIC ####[facility] [id number] Erythrocytes [#/volume] in B lood by Automated countOrdered By: Nikhil Quiñones on 01-08-2024 RBC (Bld) [#/Vol] 4.43 10*6/uL Normal 3.60-5.00 [facility] Comment on above: Performed By: #### C BC, LIPASE, HEPATIC, PT, BMP, PTT, CUBLD, LACTIC ####[facility] [address] Fungal Smearon 01-08-2024 Fungal Smear Fungus Smear Results No Yeast Like Elements Seen No Fungal Like Elements Seen ---- Trichomonas Screen No Trichomonas Seen Trich Reference Reference range = None Seen PERFORMED BY: [place] [address] PATHOLOGIST INFORMATION SECURITY DIRECTOR LARISSA GUERRA M.D. Normal [facility] Comment on above: Performed By: #### G CCHLAMAMP #### [facility] , #### FS, CUGEN #### [facility] [address] Genital Cultureon 01-08-2024 Genital Culture No More GC Specimen not tested for Neisseria gonorrheae ORGANISM: Anca albicans (O:CANALB) Quantity of Growth Moderate Growth ORGANISM: Streptococcus pyogenes Grp A (O:A) Comments Organism Not Routinely Tested for Susceptibilities Quantity of Growth Moderate Growth ORGANISM: Gardnerella vaginalis (O:GARVAG) Comments Organism Not Routinely Tested for Susceptibilities Quantity of Growth Heavy Growth PERFORMED BY: [address] [place] [address] PATHOLOGIST INFORMATION SECURITY DIRECTOR LARISSA GUERRA M.D. Normal [facility] Comment on above: Performed By: #### G CCHLAMAMP #### [facility] , #### FS, CUGEN #### [facility] [address] Glucose [Mass/volume] in Ser um or PlasmaOrdered By: Nikhil Quiñones on 01-08-2024 Glucose [Mass/Vol] 90 mg/dL Normal 70-100 [facility] Comment on above: ADA recommended refe rence rangeRandom Glucose Reference Range is dependent on time and content of last meal. Glucose of more than 200 mg/dL in a nonstressed, ambulatory subject supports the diagnosis of Diabetes Mellitus. Result Comment: [place] om Glucose Reference Range is dependent on time and content of last meal. Glucose of more than 200 mg/dL in a nonstressed, ambulatory subject supports the diagnosis of Diabetes Mellitus. ADA recommended reference range Performed By: #### C BC, LIPASE, HEPATIC, PT, BMP, PTT, CUBLD, LACTIC ####[place] [address] Hematocrit [Volume Fraction] of Blood by Automated countOrdered By: Nikhil Quiñones on 01-08-2024 Hematocrit (Bld) [Volume fraction] 36.5 % Normal 34.0-46.4 [facility] Comment on above: Performed By: #### C BC, LIPASE, HEPATIC, PT, BMP, PTT, CUBLD, LACTIC ####[facility] [address] Hemoglobin [Mass/volume] in BloodOrdered By: Nikhil Quiñones on 01-08-2024 Hemoglobin (Bld) [Mass/Vol] 12.2 g/dL Normal 11.8-15.4 [facility] Comment on above: Performed By: #### C BC, LIPASE, HEPATIC, PT, BMP, PTT, CUBLD, LACTIC ####[place] [address] Hepatic Panelon 01-08-2024 Albumin [Mass/Vol] 4.4 g/dL Normal 3.5-5.7 [facility] Comment on above: Performed By: #### C BC, LIPASE, HEPATIC, PT, BMP, PTT, CUBLD, LACTIC ####[place] [address] Bilirubin,Indirect 0.3 mg/dL Normal [facility] Comment on above: Performed By: #### C BC, LIPASE, HEPATIC, PT, BMP, PTT, CUBLD, LACTIC ####[place] [address] Bilirubin.indirect [Mass/Vol] 0.00 mg/dL Low 0.03-0.18 [facility] Comment on above: Result Comment: If t he DBIL is less than 0.1, IBIL is not able to be calculated. Performed By: #### C BC, LIPASE, HEPATIC, PT, BMP, PTT, CUBLD, LACTIC ####[place] [address] INR in Platelet poor plasma by Coagulation assayOrdered By: Nikhil Quiñones on 01-08-2024 INR Coag (PPP) [Relative time] 1.2 {INR} Normal [facility] Comment on above: INR Therapeutic Rang [...] valves: 3 - 4.5 Performed By: #### C BC, LIPASE, HEPATIC, PT, BMP, PTT, CUBLD, LACTIC ####[place] [address] Ketones Auto test strip (U) [Mass/Vol]Ordered By: Nikhil Quiñones on 01-08-2024 Ketones (U) [Mass/Vol] Negative Negative [facility] Lactate [Moles/volume] in Se rum or PlasmaOrdered By: Nikhil Quiñones on 01-08-2024 Lactate [Moles/Vol] 0.6 mmol/L Normal 0.5-2.2 [facility] Comment on above: Result Comment: PERF ORMED BY: [facility] [address] [place] [id number] PATHOLOGIST INFORMATION SECURITY DIRECTOR LARISSA GUERRA M.D. Performed By: #### C BC, LIPASE, HEPATIC, PT, BMP, PTT, CUBLD, LACTIC ####[place] [id number] [facility] Leukocytes [#/volume] correc arminda for nucleated erythrocytes in Blood by Automated counOrdered By: Nikhil Quiñones on 01-08-2024 WBC corrected for nucl RBC Auto (Bld) [#/Vol] 7.6 10*3/uL 3.8-11.6 [facility] Leukocytes [#/volume] in Blo od by Automated countOrdered By: Nikhil Quiñones on 01-08-2024 WBC (Bld) [#/Vol] 7.6 10*3/uL Normal 3.8-11.6 [facility] Comment on above: Performed By: #### C BC, LIPASE, HEPATIC, PT, BMP, PTT, CUBLD, LACTIC ####[place] [id number] [facility] Lipase [Enzymatic activity/v olume] in Serum or PlasmaOrdered By: Nikhil Quiñones on 01-08-2024 Lipase [Catalytic activity/Vol] 10.0 U/L Low 11.0-82.0 [facility] Comment on above: Result Comment: PERF ORMED BY: [facility] [address] [place] [id number] PATHOLOGIST INFORMATION SECURITY DIRECTOR LARISSA GUERRA M.D. Performed By: #### C BC, LIPASE, HEPATIC, PT, BMP, PTT, CUBLD, LACTIC ####[address] [place] [address] [place] Lymphocytes [#/volume] in Bl ood by Automated countOrdered By: Nikhil Quiñones on 01-08-2024 Lymphocytes (Bld) [#/Vol] 1.1 10*3/uL Normal 1.00-4.8 [facility] Comment on above: Performed By: #### C BC, LIPASE, HEPATIC, PT, BMP, PTT, CUBLD, LACTIC ####[address] Lymphocytes/100 leukocytes i n Blood by Automated countOrdered By: Nikhil Quiñones on 01-08-2024 Lymphocytes/100 WBC (Bld) 14.9 % Normal . [facility] Comment on above: Performed By: #### C BC, LIPASE, HEPATIC, PT, BMP, PTT, CUBLD, LACTIC ####[address] MCH [Entitic mass] by Automa arminda countOrdered By: Nikhil Quiñones on 01-08-2024 MCH (RBC) [Entitic mass] 27.6 pg Normal 24.7-34.3 [facility] Comment on above: Performed By: #### C BC, LIPASE, HEPATIC, PT, BMP, PTT, CUBLD, LACTIC ####[address] MCHC Auto (RBC) [Mass/Vol]Or dered By: Nikhil Quiñones on 01-08-2024 MCHC (RBC) [Mass/Vol] 33.5 g/dL 32.0-35.0 [facility] MCV [Entitic volume] by Auto mated countOrdered By: Nikhil Quiñones on 01-08-2024 MCV (RBC) [Entitic vol] 82.4 fL Normal 80-100 [facility] Comment on above: Performed By: #### C BC, LIPASE, HEPATIC, PT, BMP, PTT, CUBLD, LACTIC ####[address] Monocyte distribution width [Entitic volume] in Blood by AutomatedOrdered By: Nikhil Quiñones on 01-08-2024 Monocyte distribution width Auto (Bld) [Entitic vol] 21.47 % High 0.00-20.00 [facility] Comment on above: For adults in ED, MD W > 20.0 may be associated with a higher risk of sepsis during the first 12 hrs of hospital admission Neutrophils [#/volume] in Bl ood by Automated countOrdered By: Nikhil Quiñones on 01-08-2024 Neutrophils (Bld) [#/Vol] 5.8 10*3/uL Normal 1.8-7.7 [facility] Comment on above: Performed By: #### C BC, LIPASE, HEPATIC, PT, BMP, PTT, CUBLD, LACTIC ####[facility] [id number] [place] [address] [facility] Nitrite Test strip Ql (U)Ord ered By: Nikhil Quiñones on 01-08-2024 Nitrite Ql (U) Negative Negative [facility] No Panel InformationOrdered By: Nikhil Quiñones on 01-08-2024 Estimated GFR (CKD-EPI) > 60.0 mL/Min [facility] Creatinine Clearance (Chem 127.27 [facility] Nucleated erythrocytes [Pres ence] in Blood by Automated countOrdered By: Nikhil Quiñones on 01-08-2024 Nucleated RBC Auto Ql (Bld) 0.1 /100{WBC} 0-0.5 [facility] Partial Thromboplastin Timeo n 01-08-2024 aPTT Coag (Bld) [Time] 35.0 s Normal 25.1-36.5 [facility] Comment on above: Result Comment: A he matocrit value greater than 55% may lead to inaccurate results in coagulation testing. Patients having hematocrit values >55% require a special collection tube for coagulation studies. Please contact the laboratory at [phone] for redraw instructions. PERFORMED BY: [facility] [address] [place] [address] PATHOLOGIST INFORMATION SECURITY DIRECTOR LARISSA GUERRA M.D. Performed By: #### C BC, LIPASE, HEPATIC, PT, BMP, PTT, CUBLD, LACTIC ####[facility] [id number] [place] [address] [facility] Platelet mean volume [Entiti c volume] in Blood by Automated countOrdered By: Nikhil Quiñones on 01-08-2024 Platelet mean volume (Bld) [Entitic vol] 8.5 fL Normal 6.3-10.7 [facility] Comment on above: Performed By: #### C BC, LIPASE, HEPATIC, PT, BMP, PTT, CUBLD, LACTIC ####[address] [address] [facility] Platelets [#/volume] in Bloo d by Automated countOrdered By: Nikhil Quiñones on 01-08-2024 Platelets (Bld) [#/Vol] 228 10*3/uL Normal 150-450 [facility] Comment on above: Performed By: #### C BC, LIPASE, HEPATIC, PT, BMP, PTT, CUBLD, LACTIC ####[address] Potassium [Moles/volume] in Serum or PlasmaOrdered By: Nikhil Quiñones on 01-08-2024 Potassium [Moles/Vol] 3.7 mmol/L Normal 3.5-5.1 [facility] Comment on above: Performed By: #### C BC, LIPASE, HEPATIC, PT, BMP, PTT, CUBLD, LACTIC ####[place] [id number] [facility] Protein Auto test strip (U) [Mass/Vol]Ordered By: Nikhil Quiñones on 01-08-2024 Protein (U) [Mass/Vol] Negative Negative [facility] Protein [Mass/volume] in Ser um or PlasmaOrdered By: Nikhil Quiñones on 01-08-2024 Protein [Mass/Vol] 7.8 g/dL Normal 6.4-8.9 [facility] Comment on above: Performed By: #### C BC, LIPASE, HEPATIC, PT, BMP, PTT, CUBLD, LACTIC ####[place] [id number] [facility] Prothrombin time (PT)Ordered By: Nikhil Quiñones on 01-08-2024 PT Coag (PPP) [Time] 13.8 s High 9.0-12.9 [facility] Comment on above: A hematocrit value g reater than 55% may lead to inaccurate results in coagulation testing. Patients having hematocrit values >55% require a special collection tube for coagulation studies. Please contact the laboratory at [phone] for redraw instructions. Result Comment: A he matocrit value greater than 55% may lead to inaccurate results in coagulation testing. Patients having hematocrit values >55% require a special collection tube for coagulation studies. Please contact the laboratory at [phone] for redraw instructions. Performed By: #### C BC, LIPASE, HEPATIC, PT, BMP, PTT, CUBLD, LACTIC ####[place] [address] Serum globulin measurement b y calculation (mass/volume)Ordered By: Nikhil Quiñones on 01-08-2024 Globulin (S) [Mass/Vol] 3.4 g/dL [facility] Comment on above: Performed By: #### C BC, LIPASE, HEPATIC, PT, BMP, PTT, CUBLD, LACTIC ####[address] Serum or plasma albumin/glob ulin mass ratioOrdered By: Nikhil Quiñones on 01-08-2024 Albumin/Globulin [Mass ratio] 1.3 {ratio} [facility] Comment on above: Performed By: #### C BC, LIPASE, HEPATIC, PT, BMP, PTT, CUBLD, LACTIC ####[address] Serum or plasma anion gap de terminationOrdered By: Nikhil Quiñones on 01-08-2024 Anion gap [Moles/Vol] 12.1 mmol/L Normal 6.0-15.0 [facility] Comment on above: Performed By: #### C BC, LIPASE, HEPATIC, PT, BMP, PTT, CUBLD, LACTIC ####[address] Serum or plasma non-glucuron idated bilirubin measurement (mass/volume)Ordered By: Nikhil Quiñones on 01-08-2024 Bilirubin.indirect [Mass/Vol] 0.3 mg/dL [facility] Sodium [Moles/volume] in Ser um or PlasmaOrdered By: Nikhil Quiñones on 01-08-2024 Sodium [Moles/Vol] 138 mmol/L Normal 136-145 [facility] Comment on above: Performed By: #### C BC, LIPASE, HEPATIC, PT, BMP, PTT, CUBLD, LACTIC ####[address] Specific gravity Auto test s trip (U) [Rel density]Ordered By: Nikhil Quiñones on 01-08-2024 Specific gravity (U) [Rel density] 1.013 1.001-1.030 [facility] Trichomonas vaginalis detect ion by wet preparationOrdered By: Nikhil Quiñones on 01-08-2024 T. vaginalis Wet prep Ql (Unsp spec) [facility] Urea nitrogen [Mass/volume] in Serum or PlasmaOrdered By: Nikhil Quiñones on 01-08-2024 Urea nitrogen [Mass/Vol] 7 mg/dL Normal 7-25 [facility] Comment on above: Performed By: #### C BC, LIPASE, HEPATIC, PT, BMP, PTT, CUBLD, LACTIC ####[address] Urinalysison 01-08-2024 Appearance (U) Clear Normal Clear [facility] Comment on above: Order Comment: Name Collection Type:: Clean-Voided Midstream Performed By: #### U A ####[place] [id number] [facility] Bilirubin,Urine Negative Normal Negative [facility] Comment on above: Order Comment: Name Collection Type:: Clean-Voided Midstream Performed By: #### U A ####[place] [id number] [facility] Glucose Ql (U) Normal Normal Normal [facility] Comment on above: Order Comment: Name Collection Type:: Clean-Voided Midstream Performed By: #### U A ####[place] [id number] [facility] Ketones Ql (U) Negative Normal Negative [facility] Comment on above: Order Comment: Name Collection Type:: Clean-Voided Midstream Performed By: #### U A ####[address] [address] [facility] Leukocyte esterase Test strip Ql (U) Negative Normal Negative [facility] Comment on above: Order Comment: Name Collection Type:: Clean-Voided Midstream Performed By: #### U A ####[address] [address] [facility] Nitrite,Urine Negative Normal Negative [facility] Comment on above: Order Comment: Name Collection Type:: Clean-Voided Midstream Performed By: #### U A ####[address] [address] [facility] Occult Blood,Urine Negative Normal Negative [facility] Comment on above: Order Comment: Name Collection Type:: Clean-Voided Midstream Result Comment: PERF ORMED BY: [facility] [address] [place] [address] PATHOLOGIST INFORMATION SECURITY DIRECTOR LARISSA GUERRA M.D. Performed By: #### U A ####[address] [address] [facility] Protein,Urine Negative Normal Negative [facility] Comment on above: Order Comment: Name Collection Type:: Clean-Voided Midstream Performed By: #### U A ####[address] [address] [facility] Specificy [place],Urine 1.013 Normal 1.001-1.030 [facility] Comment on above: Order Comment: Name Collection Type:: Clean-Voided Midstream Performed By: #### U A ####[address] [address] [facility] Urobilinogen,Urine Normal Normal Normal [facility] Comment on above: Order Comment: Name Collection Type:: Clean-Voided Midstream Performed By: #### U A ####[address] [address] [facility] Urine clarity by refractomet ry automatedOrdered By: Nikhil Quiñones on 01-08-2024 Clarity Refractometry automated (U) Clear Clear [facility] Urine glucose measurement by automated test strip (mass/volume)Ordered By: Nikhil Quiñones on 01-08-2024 Glucose Auto test strip (U) [Mass/Vol] Normal mg/dL Normal [facility] Urine hemoglobin detection b y automated test stripOrdered By: Nikhil Quiñones on 01-08-2024 Hemoglobin Auto test strip Ql (U) Negative Negative [facility] Urine leukocyte esterase det ection by automated test stripOrdered By: Nikhil Quiñones on 01-08-2024 Leukocyte esterase Auto test strip Ql (U) Negative Negative [facility] Urine pH measurement by auto mated test stripOrdered By: Nikhil Quiñones on 01-08-2024 pH (U) 7.0 [pH] Normal 5.0-9.0 [facility] Comment on above: Order Comment: Name Collection Type:: Clean-Voided Midstream Performed By: #### U A ####[facility] [address] [place] [address] [facility] Urobilinogen Auto test strip (U) [Mass/Vol]Ordered By: Nikhil Quiñones on 01-08-2024 Urobilinogen (U) [Mass/Vol] Normal mg/dL Normal [facility] Coding Summaryon 12-28-2023 Coding Summary HTMLBase 64 KfkxnnenPGm9jIl+PGhlYWQ+P Q9YBTEqQ13tySBqsW0kO8TJXN lOSywgQVBQTElOSyIgbmFtZT1 kaXNjZXJu IC8+MR0lRDDhXedrgQAyd3H7a RG7U76vea0hUFmtxDL0JVUbMq Weuwguw3iqnFw9ZNvxQzfbBjZ t GXLwjB50YUV5uC39Bx22wDQoh KDrs5aunAy6LzMvNURrTFU8mO jiEYvzd6FoHOQuO89uhCLpa8A 6 IPZjqOxttZAiVyHowAP6oM0wX Ogczbnzv7ftcutdWdn6cl58jQ Sde7Z4hQV8G5FvqtB2LXMenYN g QzvjlEQDeQ9wguytg0cmaeixG yEdVWEsTQi9TZl3OWQelHlcSs CdDY85GQJ7YBBdscXwZ2XaWPV s nRptSfF9g3Q0Fe7RM5ZIQuvqA 1VNTUFSWTwvdGQ+UZ91bq64F8 JnAlvsRwc4YWJoCOF9bRY6hX4 n UGHqLYnay0A8rVB9L5UsbxTzy y8cv3mqXHLrFOebO28qeSTgh6 J8PGJaxGD6WTOzaHnmScPcbQ7 3 Oyc+WZWgzKqer5QyZbays6hsn 9lymZb6MlmuDVGiivQunRgdER X7c0MhPn7rWCMigXI0uDX2qP9 i YsBgUdU9MGaqF214OwTigPCoH hfwE83iB0VjhGN+XDVdKvw0PV NqqYtlQR8kH5JxYCBhmxgoxXF m uCmgGC3bHMGuecfrUJDfkQ8fF PLzZ6b8YkZoWmU9STmwE7MpRJ CjwpnxEy76tS6vSxRhKoT4KRp u A1IuzgP6SEDqiXUtEMcqCLO9S 19je7O0BVFbPGXkSPE5rIG3uY 1hbGlnbjogbGVmdDsgdmVydGl j UNntXMdzP063EHKjbBfeHbUmI GluZyBEYXRlOiAgMDcvMTEvMj AyNDwvdGQ+WSEhANG7dKuiAJH n kEUiPYiwHt5vcZcfpPwtRB8wP LMpxuihEDDjkR4cNJOisHSywY etDD4vKISbrdqdb542KnCnFGO 0 JSCnfWVwL6XrxN5eWwHoBCGpN BJoU8CmiWQzQSoiY597GSieRo J7CEGfreNoW4CiIGKanJccTpY 0 i8O1Tm2Gh7XryfxyX6PijTAqH hMxBiyzCKw6S5YpMpuudZO+PC 02SZYlNS10XYw6RZQ1dOdiCHt i BNFbF6HpoB8pUoSxUQZbFTUuI yc+PHRhYmxlIHdpZHRoPScxMD AuOpRfzIshBU1nGk6sFSZpPPW v kYvgjJMzIgPyh7raOWLiFLwpO J8kbEwcD8NpvCJ1JXWhr4b3Oz 70O57pM3LajYA+DAMcrOH0mIO 0 mA0lDgWqPrH5HJzbY337GeZha JRdOiywl8bbz9mzvIw6VkV4HD YjobArtRmnFFB2u1UaLs00F71 s IHdpZHRoPSIxNSUiIHZhbGlnb i2ixT5aMi7+QRWmzEX1xDT6hM 1lPzDoYzZ2CLpoX404SxGjmHK v Prnaj0oxc7ryuYc3TjFhTXHax rHsvFzmBMV4h0JoDk15N5PeuG dui5CtElr2wk21mRBdt9P8lLS 9 I6YbYMMhjyhtfXSpcGoeMM8jF MEftsbmSDPquG8uZRXkX4w0Oz HpEoB7AAbsH4FmbrT5KFJeiZC g RWBitAYBcH0zefufa1duqjjkP hPgFHKsCJm0MWo0FPHdwSbpGj OrIME3BnZ4MZI9wDDluZ7wfWd n nkcgsW0vUuu+INQ2uGRlmDGDD G3wKshaqHQ+TTPdQSY7uUzeFS xgQEPraI0eSHWlU0u3XeHdRhH 1 AHhcG6SkxiU0FPRcmKDfIOWlo JIZsH8qlcrum4aqibniHsUqRB SdCVs0FXg7QVSqqFoiKuHyYBB 0 NeC0IHF1oBFizV7fjXlavdnkt G9wOyc+UprbiSnxJCO7XBq6S9 KrWkd1OHOjwZgxRW8ssLDzXSp u Ld9maDoesLptWM8oKAIdrpgrf 257NoUty1arJSZakMNgRBqbOU Y9N02tu0J5UKZhNJAvWPP5wDO 4 sC6xeNmlqwretFVmtIqtcfZhi OloWIliTWwbM511REKnkKfmLa WcCSf9O4FpJjy3KZYrbGdkOA1 n hNYuHLpsJr2xsHglxVwlAZ6vV ZCpfhjkm591GwHbw1jnEJPzmR FsACowILA8S72xt7F8AQCmXNJ w HGP5dCP4nY8smXtoslnjkIYzs EcugqRzuHgpAKwbCLznL718GH QxdAywAtJgqVb4W9AxQcx3EWT z uXkfIT8tpFWrIRbiSa1ztIhea TehWL1xHASqezspk191VmFil1 anPQMwvTVjGEvoVTH9H41el3N 6 RTXbCKDrTSU3hNC1zY4ygRkvx jogbGVmdDsgdmVydGljYWwtYW zpH775MEMnuMegNiBngKommlX g UGiyMRh2A4LoSzlmkTH+PC90Y VRmCZ68mGDihQExk0llfFj6Ew WdWYAnELM8jDazUDypj1CaSJS t F27xgVOps6W4MZTszLsedRIgD uFzzUS3fZ6sLPuksrxfe6zlmj hyLmqfn2tvsh27qP96M70yJZn p FGSdZKIaELClSAMbvMsiof7at G9wIi8+KYRumJU8xIA5wC4iGC NkYfI4RKfzR923HoOdvZUdCgs j o4nwm3aphUh2NgD9ZMUpeiKga FppBXV3l9ZkCz35E96eUObuOD CbYWYaYBXqICJdrOyccr8wsA8 w Ii8+TYWnxOV1eRE7mB7nKgEcK xI0LXzwL289EfTfoQJvUqtgG8 9wC2WwsSX+CNOhCde5STMlcBf s OK7qcUQaGWnbCe8oGIV7IbSvP bEwWOkgX7TdLXLfkzwfatpokS A8OXBxJETbeG54Gn8vsVvtXVK w lNQGjP2ipdjlf4zkulzuKyZvJ YOpYKt4ZCe5UYVmqBbrHqEzNN I8PuN7WRT4cVUqtF0gsGydtid g lG5fB1IkAXQdavkkXf48gV3dA xFfUdY9RPrmZcb+Z0nRT68ORU EIZJTOYX4ZJRKLXXiRYsrtkPB + HZFoBZQ8iSgmLZcxXQNrwS3tK YFmZ1k9YuZhQbZ3PXadA1IiWR MttngrLt69jT9uUyVmEeM0MUc u X6QdhaS4HSCiuPDhNRrmXLQ8J 78rm6S6FSXfXIEnLNQ2qQF7kZ 1hbGlnbjogbGVmdDsgdmVydGl j NKenOLfkT295AIQkeQdhKcRhH yT2DeP5KWY8Y2AhWaa3SWKxuU qlGG9hxOMeSBkpXn1nyCichDn g VW1oURGvgnxzCSDzxV4cGRItd KCszTpfHX7fCNZjehfeq386Wz DmIVH2VQZpiEVzO9YooA1nDjW j MZNvBOQnI9LylRLrLPxbU180O GvjZlS7LQMhiuVwM3PnOTRaiV dvWcH7z9Q2Jb8fLFTPOXHxzjz v dGQ+WODvJKG5sOeqODyyGVEch K3sELKmU8u3PtJzYtZ4YPfzZ1 IzYDFutfiwNm28xR5lBqFmHqI 1 QUmqI1VddmX2LNPjzTPaQXdfF PV2A68qo0E2SJAtALMgIDX0qL L6fT4fgGtdvgelbIJeaJjsngO y bIbzXSdtRZtbV671ELSftXewO kZFTUFMRTwvdGQ+FOVqJQP1iR ywBMpuTBAegT3kNWEqR9w7QsR w DxE7AWncJ3UbORKhxbjdTh52d B1lUySySjC4BCenK6BvjkZ0HF RrvMGhSNtgICY9D82im4S5KQQ w MSOxDND2rRT8uI0uvFrgbrmvv GVmdDsgdmVydGljYWwtYWxpZ2 01VAQnyJbuJkOlNZVfEJ9tbFv v dGQ+QK53kx17X3PhHfzkTud3U QSkOTS5uAF6mK1mAEOrLYyfk7 O0dNQ4A2DldqBznm8ma6edBFK z OCbxU64qzDGqd2A8JPZfsHX9N HRpyFnaOfQcqU15Mvc+PGNvbG qts4GyUmnhg0mlo6bazSj6EsA w FKIsaaFtzStiQIJ8t8KoTk14U 29sIHdpZHRoPSIzMCUiIHZhbG vixb5hoK2xZc1+QBLhdPV4pTM 0 uG5uHaClTwW6JFvjK890XzTcj KSgAhuty2ozq2gcrFz7MsKbUO ZwckAceTkiQSC1x5LrUu91U8P v qFgaz1QsYrg4vx53jORbd5K8u CR9S5DuXFAeiyddxRExwQccXS 2aFKVgumehQENpyF4oORNfS0i 0 YuTiWuU3EWzqY9PbomX2ANNxj ZMkUHFfvDLPlV9eetkgz6jzta vmFtOxKMYyAEs0AXr5ZEFwoPe u DiTyEAI2CbW1LYB1iGUlxN9lh OnbeocsmS1wDqh+UBk2p2dxbM NsOM6oxMW2OC30RD23wACsi4P 5 wTP1N4WjSTFsovyadruqvEM4U MErMYYfpW81Pn6ktYvcHb9bGQ CvWBF9TMSnnQZbZ8MqbR1iJoX j JNImIKVcI5VxkJWjRMxkS621N NnhRgK5DPTtnaKzW1EaPWWrbD azNjH0t5O3Ri4ADJ57QF82XL6 8 gEFtq1D4eSQ4C4ZwWDMkmifvk zspiUP6KFZgLCRuyH50Ax0nfW bgRt6jZJWyQUX1DALeaLQdA9V v fS2mGfIwTXZfSWDjT2DwdMBsN MnlT319WWhzCbA1WAWlysFfV1 GgBQIsqXyaPwY4h7W5Qg4UYu2 6 KC36EV07bVOjc1Y9fFJ0T0CdJ QWhtxownjmmlJZ9BXZbVGBoxK 74Gk7qxKbpUc5gIDCsULY1EXQ p gKSjJ6ByvY8jPdGaPDRqLQRpE 0NyhZYvEJhmZ926WXtuRqC9JX ZwjoSvX0PvIULldKfvLqF6q5N 7 Nf3AMCytngz5Y6WfRdrstEW+P O97BHYfCS19dXJzbFSjp6pvqM f6DbCvHZRdNTN6oRgtZJwrh2J k ZXI (more content not included)... Normal [facility] .Auto Diff 12-18-2023 Auto [place] % 8 % Normal 06-30 [facility] Comment on above: Performed By: #### 1 [id number], [id number], 4997456069, 21646727, 8189390056, 0857857 #### [facility] (DEFAULT) [address] [place] [address] Baso Abs# 0.0 x10 Normal 0.0-0.2 [facility] Comment on above: Performed By: #### 1 [id number], [id number], [id number], 55293233, 6039000635, 3533929 #### [facility] (DEFAULT) [address] [place] [address] Basophils/100 WBC (Bld) 0.5 % Normal 0.2-2.0 [facility] Comment on above: Performed By: #### 1 [id number], [id number], 1195702518, 81659707, 3619026069, 4889847 #### [facility] (DEFAULT) [address] [place] [address] Eos Abs# 0.0 x10 Normal 0.0-0.4 [facility] Comment on above: Performed By: #### 1 [id number], [id number], 5470285202, 29482963, 8177719938, 1015270 #### [facility] (DEFAULT) [address] [place] [address] Eosinophils/100 WBC (Bld) 0.5 % Low 0.9-4.0 [facility] Comment on above: Performed By: #### 1 [id number], 2295208540, 7763845049, 35345176, 7367273184, 6695566 #### [facility] (DEFAULT) [address] [place] [address] Lymph Abs# 1.9 x10 Normal 1.3-2.9 [facility] Comment on above: Performed By: #### 1 [id number], 1788635990, 3271826450, 93427144, 9682323218, 7393308 #### [facility] (DEFAULT) [address] [place] [address] Lymphocytes/100 WBC (Bld) 32 % Normal 14-48 [facility] Comment on above: Performed By: #### 1 [id number], 9118869197, 3500242864, 42969214, 0154822437, 6350768 #### [facility] (DEFAULT) [address] [place] [address] [place] Abs# 0.4 x10 Normal 0.0-0.8 [facility] Comment on above: Performed By: #### 1 [id number], 7854862843, 1997411738, 73813617, 5350013413, 6345909 #### [facility] (DEFAULT) [address] [place] [address] Neut Abs# 3.5 x10 Normal 1.5-9.2 [facility] Comment on above: Performed By: #### 1 [id number], 9551977276, 3154579739, 57268953, 6283689624, 4004030 #### [facility] (DEFAULT) [address] [place] [address] Neutrophils/100 WBC (Bld) 59 % Normal 44-88 [facility] Comment on above: Performed By: #### 1 [id number], 3573867157, 8824949095, 44555074, 4355093157, 8190818 #### [facility] (DEFAULT) [address] [place] [address] CBC w/ Auto Diffon 4 Erythrocyte distribution width (RBC) [Ratio] 15.9 % High 11.5-15.0 [facility] Comment on above: Performed By: #### 1 [id number], 3463742750, 2407611313, 97833582, 3575763657, 3644983 #### [facility] (DEFAULT) [address] [place] [address] Hematocrit (Bld) [Volume fraction] 34.4 % Normal 33.7-40.4 [facility] Comment on above: Performed By: #### 1 [id number], 4411442241, 0085921342, 74097462, 5615182267, 9624477 #### [facility] (DEFAULT) [address] [place] [address] Hemoglobin (Bld) [Mass/Vol] 11.3 g/dL Normal 11.3-15.9 [facility] Comment on above: Performed By: #### 1 [id number], 4167704665, 6522797763, 51956296, 4535924122, 7962868 #### [facility] (DEFAULT) [address] [place] [address] Man Diff? Auto Invalid Interpretation Code [facility] Comment on above: Performed By: #### 1 [id number], 2367163382, 4448624641, 55585222, 7176339043, 7602655 #### [facility] (DEFAULT) [address] [place] [address] MCH (RBC) [Entitic mass] 28 pg Normal 24-34 [facility] Comment on above: Performed By: #### 1 [id number], 3784829126, 7834086336, 33818748, 2624941768, 5470700 #### [facility] (DEFAULT) [address] [place] [address] MCHC (RBC) [Mass/Vol] 33 g/dL Normal 26-37 [facility] Comment on above: Performed By: #### 1 [id number], 8443166067, 6865269009, 56502930, 5176034955, 7579032 #### [facility] (DEFAULT) [address] [place] [address] MCV (RBC) [Entitic vol] 84 fL Normal 81-100 [facility] Comment on above: Performed By: #### 1 [id number], 7443809672, 9903302282, 60459586, 9104982398, 3564962 #### [facility] (DEFAULT) [address] [place] [address] Platelet 233 x10 Normal 138-427 [facility] Comment on above: Performed By: #### 1 [id number], 1904630294, 0192735782, 68178072, 9927117311, 2803201 #### [facility] (DEFAULT) [address] [place] [address] Platelet mean volume (Bld) [Entitic vol] 8.7 fL Normal 6.3-10.2 [facility] Comment on above: Performed By: #### 1 [id number], 3741304158, 8782136746, 08809456, 7669870873, 3269370 #### [facility] (DEFAULT) [address] [place] [address] RBC 4.10 x10 Normal 3.70-5.30 [facility] Comment on above: Performed By: #### 1 [id number], 3758533539, 6897323041, 97058358, 3434081056, 4084694 #### [facility] (DEFAULT) [address] [place] [address] WBC 5.8 x10 Normal 3.5-10.5 [facility] Comment on above: Performed By: #### 1 [id number], 3632479107, 1592114803, 84699877, 4158546339, 0999830 #### [facility] (DEFAULT) [address] [place] [address] CMP Standardon 12-18-2023 eGFR Non AA >60 Invalid Interpretation Code [facility] Comment on above: Performed By: #### 1 [id number], 1999298852, 7789953325, 45506581, 1345873081, 1404647 ####[facility] (DEFAULT)[address] [place] [address] eGFR AA >60 Invalid Interpretation Code [facility] Comment on above: Performed By: #### 1 [id number], [id number], 0207516887, 46917130, 4932724471, 1728124 ####[facility] (DEFAULT)[address] [place] [address]882 Albumin [Mass/Vol] 4.3 g/dL Normal 3.5-5.0 [facility] Comment on above: Performed By: #### 1 [id number], 4070573855, 4601330554, 39428909, 6343796869, 9719851 ####[facility] (DEFAULT)[address] [place] [address]3892 Albumin/Globulin [Mass ratio] 1.2 {ratio} Low 1.4-2.6 [facility] Comment on above: Performed By: #### 1 [id number], 1766812866, 9234284265, 33577623, 5178253546, 3196288 ####[facility] (DEFAULT)[address] [place] [address]1977 Alk Phos 44 IU/L Normal 32-91 [facility] Comment on above: Performed By: #### 1 [id number], 7135470738, 9763440210, 87926713, 7399730720, 7788822 ####[facility] (DEFAULT)[address] [place] [address] 12645 ALT [Catalytic activity/Vol] 13.0 U/L Low 14.0-54.0 [facility] Comment on above: Performed By: #### 1 [id number], 1860872478, 8254793335, 27584993, 9917984438, 1877781 ####[facility] (DEFAULT)[address] [place] [address] 84975 Anion gap [Moles/Vol] 11.1 mmol/L Normal 5.0-19.0 [facility] Comment on above: Performed By: #### 1 [id number], 2750105003, 5166314469, 14064717, 9490835281, 9294553 ####[facility] (DEFAULT)[address] [place] [address] 29694 AST [Catalytic activity/Vol] 17 U/L Normal 15-41 [facility] Comment on above: Performed By: #### 1 [id number], 8145268921, 2027863878, 81792450, 4574761103, 2050868 ####[facility] (DEFAULT)[address] [place] [address] 23544 Bili Total 0.4 mg/dL Normal 0.3-1.2 [facility] Comment on above: Performed By: #### 1 [id number], 6741509076, 7351455300, 21320258, 0435398081, 6262940 ####[facility] (DEFAULT)[address] [place] [address] 64436 Calcium [Mass/Vol] 8.9 mg/dL Normal 8.9-10.3 [facility] Comment on above: Performed By: #### 1 [id number], 1708965509, 8147636570, 49840201, 8324069096, 6791687 ####[facility] (DEFAULT)[address] [place] [address] 58610 Chloride [Moles/Vol] 106 mmol/L Normal 101-111 [facility] Comment on above: Performed By: #### 1 [id number], 9885437549, 7457910560, 75473236, 1041751296, 8339082 ####[facility] (DEFAULT)[address] [place] [address] 36616 CO2 [Moles/Vol] 23 mmol/L Normal 21-32 [facility] Comment on above: Performed By: #### 1 [id number], 2464501086, 0556624035, 48489120, 8397453792, 0370153 ####[facility] (DEFAULT)[address] [place] [address] 93378 Creatinine [Mass/Vol] 0.67 mg/dL Normal 0.60-1.30 [facility] Comment on above: Performed By: #### 1 [id number], [id number], [id number], [id number], [id number], [id number] ####[facility] (DEFAULT)[address] [place] [address]173 Globulin (S) [Mass/Vol] 3.4 g/dL Normal 1.5-4.3 [facility] Comment on above: Performed By: #### 1 [id number], [id number], [id number], [id number], [id number], [id number] ####[facility] (DEFAULT)[address] [place] [address] 60652 Glucose [Mass/Vol] 93.0 mg/dL Normal 74.0-118.0 [facility] Comment on above: Performed By: #### 1 [id number], [id number], [id number], [id number], [id number], [id number] ####[facility] (DEFAULT)[address] [place] [address] 19055 Osmolality 272 mOsm/L Invalid Interpretation Code [facility] Comment on above: Performed By: #### 1 [id number], [id number], [id number], [id number], [id number], [id number] ####[facility] (DEFAULT)[address] [place] [address]129 Potassium [Moles/Vol] 3.1 mmol/L Low 3.6-5.1 [facility] Comment on above: Performed By: #### 1 [id number], [id number], [id number], [id number], [id number], 7085938 ####[facility] (DEFAULT)[address] [place] [address] 77700 Protein [Mass/Vol] 7.7 g/dL Normal 6.5-8.1 [facility] Comment on above: Performed By: #### 1 [id number], [id number], [id number], [id number], 9195040552, [id number] ####[facility] (DEFAULT)[address] [place] [address] 16031 Sodium [Moles/Vol] 137.0 mmol/L Normal 136.0-144.0 [facility] Comment on above: Performed By: #### 1 [id number], [id number], [id number], 54335668, [id number], [id number] ####[facility] (DEFAULT)[address] [place] [address] 61055 Urea nitrogen [Mass/Vol] 9 mg/dL Normal 8-26 [facility] Comment on above: Performed By: #### 1 [id number], [id number], [id number], 52150746, [id number], 6616144 ####[facility] (DEFAULT)[address] [place] [address] 23288 Urea nitrogen/Creatinine [Mass ratio] 13.4 mg/mg Normal 4.6-16.2 [facility] Comment on above: Performed By: #### 1 [id number], [id number], [id number], 98035192, [id number], [id number] ####[facility] (DEFAULT)[address] [place] [address] Abdomen/Pelvis w/o Contra beryl 12-18-2023 CT Abdomen/Pelvis w/o Contrast EXAMINATION: CT [...] MD 12/18/23 6:48 pm Technologist: DANN Morales [facility] ED Clinical Summaryon 2023 ED Clinical Summary [facility] - Emergency Department [address] [place], [place] [id number] ED Clinical Summary PERSON INFORMATION Name: BARBRA CLAROS Age: 28 Years Sex: FEMALE : 1995 MRN: Acct#: Visit Reason: Pelvic pain; FALL Arrival: 12/18/2023 16:55:10 Discharge: 12/18/2023 19:09:00 LOS: 000 02:14 Check In: 12/18/2023 16:55:10 Checkout:12/18/2023 19:09:00 Address: [address] [place] [address] PCP: Provider, None PROVIDER INFORMATION Provider Role Assigned Unassigned Anjel Yates MD ED Provider 12/18/2023 16:57:27 Viola Esqueda VEHICLE [employer]IMMER Nurse 12/18/2023 17:05:39 VITALS INFORMATION Vital Sign [...] PATIENT EDUCATION INFORMATION Instructions: Abdominal Pain, Adult, [id number] Follow-Up: With: Address: When: Follow up with primary care provider Within 3 to 5 days DIAGNOSIS: 1:Fall; 2:Pelvic pain in female Patient Understands: Yes - Patient/family/caregiver verbalizes understanding of instructions given Comment: [facility] ED Note-Nursingon 12-18-2023 ED Note-Nursing Patient [...] removal from tubes and uterus years ago. [facility] ED Patient Summaryon 024 ED Patient Summary [facility] - Emergency Department [address] [place] [address] PATIENT DISCHARGE INSTRUCTIONS Patient Information Name: BARBRA CLAROS Age: 28 Years Date of : 1995 Reason For Visit: Pelvic pain; FALL Arrival Time: 12/18/2023 16:55:10 Primary Care Physician: Provider, None Attending Physician: Anjel Yates MD Comment: Visit Diagnosis: Diagnoses This Visit Fall (W19.XXXA) Pelvic pain ([id number]) Pelvic pain in female (R10.2) The Pharmacy at [facility] is open Monday through Monday from 9A [...] alcohol and/or drug addiction problems; contact the [facility] 09/01 Crisis Hotline -Text 0YELQ to 446595. If you received any narcotics, sedation, or [...] and treatment you received today in the [facility] Emergency Department were for an urgent problem and are not intended as complete care. It is important for you to follow up with a doctor, nurse practitioner, or physician?s cashier assistant for ongoing care. If your symptoms [...] so we can reach you if necessary. [facility] Emergency Department has provided you with a complete list of medications post discharge. Please inform your department editor/provider of your visit and for further instruction [...] Education Abdominal Pain, Adult Follow-up with your TEXT[employer] D[employer]ER review this emergency department visit and for [...] these instructions at home: Medicines ? Take rapc-flh-doilypq and prescription medicines only as told by your doctor. ? Do not take medicines that help you poop (laxatives) unless told by your doctor. General i (more content not included)... Normal [facility] Extra Greenon 12-18-2023 Tube Collected Yes Invalid Interpretation Code [facility] [facility] Comment on above: Performed By: #### 1 [id number], [id number], [id number], [id number], [id number], [id number] #### [facility] (DEFAULT) [address] [place] [address] UA Kmavg0cf 12-18-2023 UA Bacteria Trace Normal [facility] Comment on above: Order Comment: Urina lysis Microscopic order added on by Discern Expert Rules system. Performed By: #### 5 [id number], [id number] ####[facility] (DEFAULT)[address] [place] [address] UA RBC 3-5 [facility] Comment on above: Order Comment: Urina lysis Microscopic order added on by Discern Expert Rules system. Performed By: #### 5 [id number], [id number] ####[facility] (DEFAULT)[address] [place] [address] UA Squam Epi Few [facility] Comment on above: Order Comment: Urina lysis Microscopic order added on by Discern Expert Rules system. Performed By: #### 5 [id number], [id number] ####[facility] (DEFAULT)[address] [place] [address] UA WBC 0-2 [facility] Comment on above: Order Comment: Urina lysis Microscopic order added on by [employer] Expert Rules system. Performed By: #### 5 [id number], [id number] ####[facility] (DEFAULT)[address] [place] [address] UA w Culture if Ind Standard on 12-18-2023 Breakpoint UA [facility] Comment on above: Performed By: #### 5 [id number], [id number] ####[facility] (DEFAULT)[address] [place] [address] Color (U) Yellow [facility] Comment on above: Performed By: #### 5 [id number], [id number] ####[facility] (DEFAULT)[address] [place] [address] Culture? Not Indicated Invalid Interpretation Code [facility] Comment on above: Result Comment: Resu lt created by rule GL_MAGR_ADD_UA_CULT Result created by rule GL_MAGR_ADD_UA_CULT Result created by rule GL_MAGR_ADD_UA_CULT1 Performed By: #### 5 [id number], [id number] ####[facility] (DEFAULT)[address] [place] [address] Glucose (U) [Mass/Vol] Negative Normal [facility] Comment on above: Performed By: #### 5 [id number], [id number] ####[facility] (DEFAULT)[address] [place] [address] Ketones Ql (U) Negative Normal [facility] Comment on above: Performed By: #### 5 [id number], [id number] ####[facility] (DEFAULT)[address] [place] [address] Micro? Indicated Invalid Interpretation Code [facility] Comment on above: Result Comment: Resu lt created by rule GL_MAGR_ADD_UA_MICRO Performed By: #### 5 [id number], [id number] ####[facility] (DEFAULT)[address] [place] [address] UA Bilirubin Negative Normal [facility] Comment on above: Performed By: #### 5 [id number], [id number] ####[facility] (DEFAULT)[address] [place] [address] UA Blood SMALL Abnormal NEGATIVE [facility] Comment on above: Performed By: #### 5 [id number], [id number] ####[facility] (DEFAULT)[address] [place] [address] UA Clarity CLEAR Normal CLEAR [facility] Comment on above: Performed By: #### 5 [id number], [id number] ####[facility] (DEFAULT)[address] [place] [address] UA Leuk Est Negative Normal NEGATIVE [facility] Comment on above: Performed By: #### 5 [id number], [id number] ####[facility] (DEFAULT)[address] [place] [address] UA Nitrite Negative Normal NEGATIVE [facility] Comment on above: Performed By: #### 5 [id number], [id number] ####[facility] (DEFAULT)[address] [place] [address] UA pH 6.0 Normal 5-8 [facility] Comment on above: Performed By: #### 5 [id number], [id number] ####[facility] (DEFAULT)[address] [place] [address] UA Protein Negative Normal NEGATIVE [facility] Comment on above: Performed By: #### 5 [id number], [id number] ####[facility] (DEFAULT)[address] [place] [address] UA Spec Grav 1.010 Normal 1.001-1.035 [facility] Comment on above: Performed By: #### 5 [id number], [id number] ####[facility] (DEFAULT)[address] [place] [address] UA Urobilinogen 0.2 mg/dL Normal 0.2-1.0 [facility] Comment on above: Performed By: #### 5 [id number], [id number] ####[facility] (DEFAULT)[address] [place] [address] Urine Source Clean Catch Normal [facility] Comment on above: Performed By: #### 5 [id number], [id number] ####[facility] (DEFAULT)[address] [place] [address] CBCon 11-28-2023 Erythrocyte distribution width (RBC) [Ratio] 14.6 % High 11.8-14.4 [facility] Comment on above: Performed By: #### C DP #### [facility] [address] [place] [address] [place] [address] Gear Generator Set Up Operator: Lakhwinder Tim MD Hematocrit (Bld) [Volume fraction] 35.5 % Low 36.3-47.1 [facility] Comment on above: Performed By: #### C DP #### [facility] [address] [place] [address] Gear Generator Set Up Operator: Lakhwinder Tim MD Hemoglobin (Bld) [Mass/Vol] 11.3 g/dL Low 11.9-15.1 [facility] Comment on above: Performed By: #### C DP #### [facility] [address] [place] [address] Gear Generator Set Up Operator: Lakhwinder Tim MD MCH (RBC) [Entitic mass] 27.3 pg Normal 25.2-33.5 [facility] Comment on above: Performed By: #### C DP #### [address] [place], [place] 2163083 Gear Generator Set Up Operator: Lakhwinder Tim MD MCHC (RBC) [Mass/Vol] 31.8 g/dL Normal 28.4-34.8 [facility] Comment on above: Performed By: #### C DP #### [address] [place], [place] 7443183 Gear Generator Set Up Operator: Lakhwinder Tim MD MCV (RBC) [Entitic vol] 85.7 fL Normal 82.6-102.9 [facility] Comment on above: Performed By: #### C DP #### [address] [place], [facility]83 Gear Gener[employer] Set Up Operator: Lakhwinder Tim MD NRBC Automated 0.0 per 100 WBC Normal 0.0 [facility] Comment on above: Performed By: #### C DP #### [address] [place], [facility]83 Gear Generator Set Up Operator: Lakhwinder Tim MD Platelet mean volume (Bld) [Entitic vol] 10.2 fL Normal 8.1-13.5 [facility] Comment on above: Performed By: #### C DP #### [address] [place], [facility]83 Gear Generator Set Up Operator: Lakhwinder Tim MD Platelets (Bld) [#/Vol] 279 10*3/uL Normal 138-453 [facility] Comment on above: Performed By: #### C DP #### [address] [place], [place] 5205083 Gear Generator Set Up Operator: Lakhwinder Tim MD RBC (Bld) [#/Vol] 4.14 10*6/uL Normal 3.95-5.11 [facility] Comment on above: Performed By: #### C DP #### [facility] [address] [place], [place] [id number] Gear Generator Set Up Operator: Lakhwinder Tim MD WBC (Bld) [#/Vol] 6.3 10*3/uL Normal 3.5-11.3 [facility] Comment on above: Performed By: #### C DP #### [facility] [address] [place] [address] [place], [place] [phone] Gear Generator Set Up Operator: Lakhwinder Tim MD Vaginitis DNA Probeon 2023 Anca Negative Normal NEG [facility] Comment on above: Result Comment: for Anca sp. Method of testing is a DNA probe intended for detection and identification of Anca species, Gardnerella vaginalis, and Trichomonas vaginalis nucleic acid in vaginal fluid specimens from patients with symptoms of vaginitis/vaginosis. Performed By: #### C P, LIP, CDP #### [address] [place], [place] 7150283 Gear Generator Set Up Operator: Lakhwinder Tim MD Gardnerella Positive Abnormal NEG [facility] Comment on above: Result Comment: for Gardnerella vaginalis Performed By: #### C P, LIP, CDP #### [address] [place], [place] 2870183 Gear Generator Set Up Operator: Lakhwinder Tim MD Trichomonas Negative Normal NEG [facility] Comment on above: Result Comment: for Trichomonas Vaginalis Performed By: #### C P, LIP, CDP #### [address] [place], [place] 5431183 [employer] Generator Set Up Operator: Lakhwinder Tim MD Source .VAGINAL SWAB Normal [facility] Comment on above: Performed By: #### C P, LIP, CDP #### [address] [place], [place] 7817583 Gear Generator Set Up Operator: Lakhwinder Tim MD CT ABDOMEN PELVIS W IV CONTR Marichuy 11-27-2023 CT ABDOMEN PELVIS W IV CONTRAST ADDENDUM: EXAM NOTE - Needs AddendumDr GiraldozCORE: Dorinda Joseph, 11/26/2023 11:56 PMCOMMUNICATION NOTE - Speak with Physician - STATCompletedSmall amount of hemorrhage in the pelvic cul-de-sac estimated at 100 cc.Assigned:zCORE: Amanda Joseph Hassan : Neuro/IC, 11/26/2023 11:50 PMAttemptedcallingzCORE: Joseph, Dorinda, 11/26/2023 11:[address] Saucedo with [address] PelletierCORE: Joseph, Dorinda, 11/26/2023 11:56 PM Electronically Signed by: BETSY [...] MD 11/27/23 Edited Result - FINAL Normal [facility] Basic Metabolic Profon 11-25 Anion gap [Moles/Vol] 8 mmol/L Low 9-17 [facility] Comment on above: Performed By: #### U MICAO, UAX #### [facility] [address] [place], [place] 4621583 Gear Generator Set Up Operator: Lakhwinder Tim MD BUN/CRE Ratio 18 Normal 9-20 [facility] Comment on above: Performed By: #### U MICAO, UAX #### [facility] [address] [place], [place] 3016283 Gear Generator Set Up Operator: Lakhwinder Tim MD Calcium [Mass/Vol] 8.5 mg/dL Low 8.6-10.4 [facility] Comment on above: Performed By: #### U OSMINO, UAX #### [facility] [address] [place], [place] 4042983 Gear Generator Set Up Operator: Lakhwinder Tim MD Chloride [Moles/Vol] 101 mmol/L Normal 98-107 [facility] Comment on above: Performed By: #### U OSMINO, UAX #### [facility] [address] [place], [place] 2573583 [employer] Generator Set Up Operator: Lakhwinder Tim MD CO2 [Moles/Vol] 28 mmol/L Normal 20-31 [facility] Comment on above: Performed By: #### U MICAO, UAX #### [facility] [address] [place], [place] 5114583 Gear Generator Set Up Operator: Lakhwinder Tim MD Creatinine [Mass/Vol] 0.6 mg/dL Normal 0.5-0.9 [facility] Comment on above: Performed By: #### U OSMINO, UAX #### [facility] [address] [place] [address] Gear Generator Set Up Operator: Lakhwinder Tim MD GFR/1.73 sq M.predicted among non-blacks MDRD (S/P/Bld) [Vol rate/Area] mL/min/{1.73_m2} Normal >60 [facility] Comment on above: Result Comment: These results [...] renal tubular secretion. Performed By: #### U KARINA, UAX #### [facility] [address] [place] [address] [place], [place] 0061083 [employer] Generator Set Up Operator: Lakhwinder Tim MD Glucose [Mass/Vol] 88 mg/dL Normal 70-99 [facility] Comment on above: Performed By: #### U KARINA UAX #### [facility] [address] [place], [place] 1337383 Gear Generator Set Up Operator: Lakhwinder Tim MD Potassium [Moles/Vol] 3.7 mmol/L Normal 3.7-5.3 [facility] Comment on above: Performed By: #### U KARINA UAX #### [address] [place], [place] 3795083 Gear Generator Set Up Operator: Lakhwinder Tim MD Sodium [Moles/Vol] 137 mmol/L Normal 135-144 [facility] Comment on above: Performed By: #### U KARINA UAX #### [facility] [address] [place] [address] [place], [place] [phone] Gear Generator Set Up Operator: Lakhwinder Tim MD Urea nitrogen [Mass/Vol] 11 mg/dL Normal 6-20 [facility] Comment on above: Performed By: #### U KARINA UAX #### [facility] [address] [place] [address] Gear Generator Set Up Operator: Lakhwinder Tim MD CBC with Diffon 11-25-2023 Abs. Basophil <0.03 Normal 0.00-0.20 [facility] Comment on above: Performed By: #### U OSMINO UAX #### [facility] [address] [place], [facility]83 [employer] Gener[employer] Set Up Operator: Lakhwinder Tim MD Abs.Imm.Granulocyte <0.03 Normal 0.00-0.30 [facility] Comment on above: Performed By: #### U MICAO, UAX #### [facility] [address] [place], [facility]83 [employer] Gener[employer] Set Up Operator: Lakhwinder Tim MD Abs.Neutrophil (Seg) 4.02 k/uL Normal 1.50-8.10 [facility] Comment on above: Performed By: #### U OSMINO, UAX #### [address] [place] [id number] Gear Generator Set Up Operator: Lakhwinder Tim MD Basophils/100 WBC (Bld) 0 % Normal 0-2 [facility] Comment on above: Performed By: #### U OSMINO, UAX #### [address] [place], [facility]83 Gear Gener[employer] Set Up Operator: Lakhwinder Tim MD Eosinophils (Bld) [#/Vol] 0.20 10*3/uL Normal 0.00-0.44 [facility] Comment on above: Performed By: #### U MICAO, UAX #### [address] [place], [facility]83 Gear Generator Set Up Operator: Lakhwinder Tim MD Eosinophils/100 WBC (Bld) 3 % Normal 1-4 [facility] Comment on above: Performed By: #### U MICAO, UAX #### [address] [place], [facility]83 [employer] Gener[employer] Set Up Operator: Lakhwinder Tim MD Erythrocyte distribution width (RBC) [Ratio] 14.6 % High 11.8-14.4 [facility] Comment on above: Performed By: #### U MICAO, UAX #### [address] [place] [id number] [employer] Generator Set Up Operator: Lakhwinder Tim MD Hematocrit (Bld) [Volume fraction] 33.2 % Low 36.3-47.1 [facility] Comment on above: Performed By: #### U MICAO, UAX #### [facility] [address] [place] [facility]83 Gear Gener[employer] Set Up Operator: Lakhwinder Tim MD Hemoglobin (Bld) [Mass/Vol] 10.8 g/dL Low 11.9-15.1 [facility] Comment on above: Performed By: #### U MICAO, UAX #### [facility] [address] [place] [phone] [employer] Generator Set Up Operator: Lakhwinder Tim MD Immature granulocytes/100 WBC (Bld) 0 % Normal 0 [facility] Comment on above: Performed By: #### U OSMINO, UAX #### [facility] [address] [place], [facility]83 [employer] Gener[employer] Set Up Operator: Lakhwinder Tim MD Lymphocytes (Bld) [#/Vol] 2.70 10*3/uL Normal 1.10-3.70 [facility] Comment on above: Performed By: #### U MICAO, UAX #### [facility] [address] [place] [address] Dr[place], [facility]83 Gear Gener[employer] Set Up Operator: Lakhwinder Tim MD Lymphocytes/100 WBC (Bld) 36 % Normal 24-43 [facility] Comment on above: Performed By: #### U MICAO, UAX #### [facility] [address] [place], [facility]83 Gear Gener[employer] Set Up Operator: Lakhwinder Tim MD MCH (RBC) [Entitic mass] 27.3 pg Normal 25.2-33.5 [facility] Comment on above: Performed By: #### U MICAO, UAX #### [facility] [address] [place] [facility]83 [employer] Gener[employer] Set Up Operator: Lakhwinder Tim MD MCHC (RBC) [Mass/Vol] 32.5 g/dL Normal 28.4-34.8 [facility] Comment on above: Performed By: #### Josesito COLLINS UAX #### [facility] [address] [place], [place] 6544883 [employer] Generator Set Up Operator: Lakhwinder Tim MD MCV (RBC) [Entitic vol] 84.1 fL Normal 82.6-102.9 [facility] Comment on above: Performed By: #### Josesito COLLINS UAX #### [address] [place] [address] [employer] Generator Set Up Operator: Lakhwinder Tim MD Monocytes (Bld) [#/Vol] 0.64 10*3/uL Normal 0.10-1.20 [facility] Comment on above: Performed By: #### Josesito COLLINS UAX #### [address] [place] [address] [employer] Generator Set Up Operator: Lakhwinder Tim MD Monocytes/100 WBC (Bld) 8 % Normal 3-12 [facility] Comment on above: Performed By: #### Josesito COLLINS UAX #### [address] [place], [place] [phone] [employer] Generator Set Up Operator: Lakhwinder Tim MD Neutrophil (Seg) 53 % Normal 36-65 [facility] Comment on above: Performed By: #### Josesito COLLINS UAX #### [address] [place], [place] 6641683 [employer] Generator Set Up Operator: Lakhwinder Tim MD NRBC Automated 0.0 per 100 WBC Normal 0.0 [facility] Comment on above: Performed By: #### U KARINA UAX #### [facility] [address] [place], [place] 2147783 Gear Generator Set Up Operator: Lakhwinder Tim MD Platelet mean volume (Bld) [Entitic vol] 10.2 fL Normal 8.1-13.5 [facility] Comment on above: Performed By: #### U MICAO, UAX #### [facility] [address] [place], [place] 0731183 [employer] Generator Set Up Operator: Lakhwinder Tim MD Platelets (Bld) [#/Vol] 253 10*3/uL Normal 138-453 [facility] Comment on above: Performed By: #### U OSMINO, UAX #### [facility] [address] [place], [place] 1390583 Gear Generator Set Up Operator: Lakhwinder Tim MD RBC (Bld) [#/Vol] 3.95 10*6/uL Normal 3.95-5.11 [facility] Comment on above: Performed By: #### U OSMINO, UAX #### [address] [place], [place] 7115183 Gear Generator Set Up Operator: Lakhwinder Tim MD WBC (Bld) [#/Vol] 7.6 10*3/uL Normal 3.5-11.3 [facility] Comment on above: Performed By: #### U KARINA UAX #### [address] [place] [address] Gear Generator Set Up Operator: Lakhwinder Tim MD Magnesiumon 11-26-2023 Magnesium [Mass/Vol] 2.0 mg/dL Normal 1.6-2.6 [facility] Comment on above: Performed By: #### U OSMINO, UAX #### [address] [place] [address] Gear Generator Set Up Operator: Lakhwinder Tim MD Urinalysis w/ Microon 2023 Epithelial cells LM Ql (Urine sed) 0 TO 2 Normal 0-25 [facility] Comment on above: Performed By: #### C P, LIP, CDP #### [facility] [address] [place] [address] Gear Generator Set Up Operator: Lakhwinder Tim MD Mucus Strands 1+ Abnormal NONE [facility] Comment on above: Performed By: #### C P, LIP, CDP #### [facility] [address] [place], [place] 4461683 Gear Generator Set Up Operator: Lakhwinder Tim MD Urine RBC's 0 TO 2 Normal 0-2 [facility] Comment on above: Performed By: #### C P, LIP, CDP #### [facility] [address] [place], [place] 1016683 Gear Generator Set Up Operator: Lakhwinder Tim MD Urine WBC's 0 TO 2 Normal 0-5 [facility] Comment on above: Performed By: #### C P, LIP, CDP #### [address] [place] [address] [employer] Generator Set Up Operator: Lakhwinder Tim MD Bilirubin, SemiQt,Ur Negative Normal NEG [facility] Comment on above: Performed By: #### C P, LIP, CDP #### [facility] [address] [place] [address] [place] [address] Gear Generator Set Up Operator: Lakhwinder Tim MD Blood, Urine Negative Normal NEG [facility] Comment on above: Performed By: #### C P, LIP, CDP #### [facility] [address] [place] [address] [place] [address] Gear Generator Set Up Operator: Lakhwinder Tim MD Clarity (U) Clear Normal CLEAR [facility] Comment on above: Performed By: #### C P, LIP, CDP #### [facility] [address] [place] [address] Gear Generator Set Up Operator: Lakhwinder Tim MD Color (U) Yellow Normal YEL [facility] Comment on above: Performed By: #### C P, LIP, CDP #### [facility] [address] [place] [address] Gear Generator Set Up Operator: Lakhwinder Tim MD Glucose Ql (U) Negative Normal NEG [facility] Comment on above: Performed By: #### C P, LIP, CDP #### [facility] [address] [place], [place] 6596783 Gear Generator Set Up Operator: Lakhwinder Tim MD Ketones Ql (U) Negative Normal NEG [facility] Comment on above: Performed By: #### C P, LIP, CDP #### [facility] [address] [place] [address] [place] [address] Gear Generator Set Up Operator: Lakhwinder Tim MD Leukocyte esterase Test strip Ql (U) Negative Normal NEG [facility] Comment on above: Performed By: #### C P, LIP, CDP #### [address] [place], [place] 1903583 Gear Generator Set Up Operator: Lakhwinder Tim MD Nitrite,Ur Negative Normal [facility] Comment on above: Performed By: #### C P, LIP, CDP #### [facility] [address] [place] [address] [place] [address] Gear Generator Set Up Operator: Lakhwinder Tim MD PH,Ur 6.0 Normal 5.0-9.0 [facility] Comment on above: Performed By: #### C P, LIP, CDP #### [address] [place] [address] [employer] Generator Set Up Operator: Lakhwinder Tim MD Protein Ql (U) Negative Normal NEG [facility] Comment on above: Performed By: #### C P, LIP, CDP #### [facility] [address] [place] [address] [place], [place] [phone] Gear Generator Set Up Operator: Lakhwinder Tim MD Spec. [place],Ur >1.030 High 1.010-1.020 [facility] Comment on above: Performed By: #### C P, LIP, CDP #### [facility] [address] [place] [address] [place] [address] Gear Generator Set Up Operator: Lakhwinder Tim MD Urobilinogen,Ur Normal Normal 0.0-1.0 [facility] Comment on above: Performed By: #### C P, LIP, CDP #### [facility] [address] [place] [address] [employer] Generator Set Up Operator: Lakhwidner Tim MD Surgical Pathology Reporton 11-20-2023 Surgical Pathology Report (NOTE) Path Number: [id number] -- Diagnosis -- UTERUS AND CERVIX, HYSTERECTOMY: - SECRETORY PHASE ENDOMETRIUM. - BENIGN CERVIX WITH NO SIGNIFICANT PATHOLOGIC ABNORMALITY. Sayra Olivares Electronically Signed Out ag/11/22/2023 Clinical Information Pre-Op Diagnosis: MENORRHAGIA WITH REGULAR [...] No further masses or lesions are identified. Learning And Development Manager sections are submitted in 4c as follows: 1 anterior cervix 2 posterior cervix 3 anterior endomyometrium 4 posterior endomyometrium. silvano Saucedo/kb2:11/21/2023 Microscopic Description Microscopic examination performed. Processing Lab: [address] [id number] Interpretation Performed at [address] [place] [address] SURGICAL PATHOLOGY CONSULTATION Patient Name: BARBRA CLAROS [facility] Rec: [id number] [facility] CONSULTING PATHOLOGISTS [facility] ANATOMIC PATHOLOGY [facility] [place], [place] [address] [facility] Coding Summaryon 10-25-2023 Coding Summary HTMLBase 64 VtplbgkfZTj6oXi+PGhlYWQ+P M6HFFHnR36hyKLrcE8jC1HOJZ lOSywgQVBQTElOSyIgbmFtZT1 kaXNjZXJu IC8+VG9mXKBxMhxheCPcj8A2z SO9M67ian7eYBedgNX1QDAwFc Xgykcjc7ibwVx2BXojMokdHdF t JMAsdW68MTH3zA42Un10jYKsa VIji7qecDz4ObWxVNDrRIP9sS bxJChfu1AeHFPdV34xiQVyh1L 6 LDHwbUbtcAAyUbGmjDN5bH6lR Qcgaqgif1pmdwajLcx1jx24nS Gxq0K5hFH1O0LhcaZ4VDBnrIC g JurkkOBEuQ8iwsqzz4arqbrhJ eZmFDIdHIi4OVt4DMVshJwvLb FyOB02TBU3QNAbnyEnR5DvUDI s pBqjRsA8c4U5Qm4EQ3ATLljcC 1VNTUFSWTwvdGQ+LA06vq65R0 CmLnbhZdk5EYOjRCA3aIZ8aV0 n LBAkVFkkd0W3nDC0O6YqqxAyi w6ok6bgQKAsLHocN82jzAKtj1 U5PDSpmTO7ZTJdvPikDuArkN0 3 Oyc+WIUzeQymn8HpMdeqr1qbo 5fbzAt0PwblZULnnmIpkGjhDD D2l0WzKy1hUWJsySG9sSF4tC9 i XdEeRwV6LNhsH006UtEflOKqJ xxfC09nK3MlqMV+QBUvIaq7HA BdbMiwAP4aM5BgSEDwngamrDB m qRjkCB2bUBEaggnfRYUboY5uM JElM0j6GbTvJcN9HKpvQ1OkTE MvowdaZx56kP7mLlSbSmT5RMs u I7OenzZ0SLJmzKKzMTdbLDQ1M 08co7U4WGVpJVWqATY3iWO0uK 1hbGlnbjogbGVmdDsgdmVydGl j QOjrSTnyF028WVWylAceGhCoU GluZyBEYXRlOiAgMDUvMDgvMj AyNDwvdGQ+KFYvOOZ7eEzeHQQ n nJBaMVitEv0utYzcfQdjPG9sY WMalihvMSFavO2sXDEztVWwzM hjTF6dEQRgbpdgk052UhJpISA 0 VZAzcQPbN6RsyD4dHxGfCIIkR LVbD3NxlQNvDJvvT844BFflEl N1TUQyibRhW8SjZUXbpPahXuT 0 h1M4Fj2Zq4UinxnwP3MkxNItH nQoQspaEYr0O0MkJnbvjCF+PC 46LPOyNZ54NEi9AOE8xKbwNOw i WNRaN9MsoB3tSbNqAGLuXERtM yc+PHRhYmxlIHdpZHRoPScxMD HkRyWrbJlgXO7qEl6vIMSgVYR v nQspyYCjYtYfg3loGLKcJOidO X2osIzdB8FknKB3QWJtt7n5Lg 83M14wP2XkiIS+RKQmtEP2lJE 0 lC6tHaUqLhS3VZpjD952VcTqy YPpHfpux2dnh8woxPv1XsM0PR MlrvEwhRrxUXE9i9HtWw68D80 s IHdpZHRoPSIxNSUiIHZhbGlnb b5onV1uFj3+WKUtwZN5vVQ9pU 8tLxKbPwS2HEosI889KdQpfZB v Wwbkg7ymd5plwGe5UdBrIHVwe yDufUmjRVR6l0TyKc53L6JfzR wcs8OfGbc6pc73uZDjk9M1lJD 9 O4MmATIdqadhnRLxxLgiOA1qP JVoayycZGBniZ6kQJAlU7k6Pn SfOqY3MXqxX6EjdzG6CBAwyGW g CJSldZVWlI4udkfio9qjbgyaK hPaVVUwLIz1ENq4XKHldYnaDa UsVPW3IuI8OPS7wWDboF4phPe n wjcnzX0nEnn+FHU0mHEcsZJVD M0hKurrdEL+BPVhWFA7wJdvNR aoPNXaoU2sMMYqP0z8JoAzCbF 1 JUpjF9GolzD7ZFZzvFGwCIFec GWGgF7qtxvqj6ydraheQzTuLL DnKQq0KMe0ZCKdmIegYyUwCIC 0 HjN1BNX8mKCgcG0zcPjfwjdcq G9wOyc+DxsasCtwBZD1SPp9U4 LpAru5ETBxkHitRG8vzOYpGDs u Pm1kqWijqMvsFX2yVXRovmott 786QsGlt0opJYEaqPLjUPjsGZ Q1Y65of6L5JGRpCDIiUCI4rYJ 4 bV4lpOaeowdrpHMshHipgeIbq ZuhXTvxTTyyA497AYMesGbqCf QzLJd2W1JtTxu1QMOrvBusLE3 n aPJxFPgcTa0uvFxteXfdVY7eY BHphhuqm147DzIyl0gtTWHriT WsPUxhEYL6K60aq9V8CLUtLLI w LNI0yCG8kK1pkBvdnhmzaPJgh IxiyeIwbHjzOAidKYlzS677IM RvrNaiWxQadGi8V9BdEwa3SYW z yEtnOI9bvBIuPDcsMx4zoQaqj WdwXZ1qOQGsimzpq301IfNko6 gxYPUiiGYsXDbyWIE7I96an7Y 6 IGLoQIAuTEZ2aOL1qO8ycAoeq jogbGVmdDsgdmVydGljYWwtYW zrK222SNNxuNklZiLhyGlaoeV g KVopGGq0B2LlHhhmpCO+PC90Y MTqYI53bBHxeRYmh0qxjDv2Mn DgMISjOFG5dLsfAZwjl2WvFQN t H13ynLEeu5D7LCUkkPpyvYLcB oVqkXG2aK2gLXlksxoii3itiz prIavld0mdbh75wH11V45oQXl p SENzJOEyMJVnWJKxnDmflx1tb G9wIi8+ZBNgnBD4tOC2iN2uGM FlUrB1LRiyR140PfVkoUJxJgs j s2yls1fkjAv6BvX6CUTyxiCfy AigDUM8r7TqDx43O69dPKeiBW EaPQQmMDGlHGHzeNdhrp4fdI0 w Ii8+KCRphFN1zMF0rI3jMbRlS rX9JUhwF310KeHbmBLqRjpyC5 1pQ9CkfKJ+DXNxFtd0DYTbeRd s IW7uhZOlDPfdGd6eHTM9OoGrD oMyRFbuL6SgAHGnicukcimzdS Z9IMJbVPLymL61Op0lgAdwXVK w jRYGuA1wliolv9jpnahsAmPtM BGtLTo3GBd7RSLhpJhrKeTsPX I5UwL3PZS2iIXaiE8acEsvpmw g uG9rE0AoOKTslonaMj85pZ3fD fNmDsK4YLknUra+Y4dFA52BVK AJRWMMHY2ZRAFVAPxIDcaphVE + KOJaGRB5rCkcTMpuZYQslQ6zK MIbD7q7ZkXyYdX1NDqmV2MbQM VbtgvvPm40mV6tEwSpCuG9APv u W8BuxbU5TLDleWXrQZlqBZL5C 60tc2E8NHJjZWKfEVL5yTI2hU 1hbGlnbjogbGVmdDsgdmVydGl j WEqmNBesB273JLVpkGfhGtGvF sM9ZyO7PDX4B1ZeTgk6UXTxrA ovSD3qhJQaFAlbQn4pyKluxSj g VS5zCBUnkvcoPXErbA3dQQNas WPyoVuuTD7dLJFnymbfk768Ft YjPHQ8IZTbhMQqA4KypF3cBsK j SWLgBBSgO5NehLDsKBtdN185C FhgSfI7VOTwfqUjY8VoCDCvoH wuRiX9j4R5Lc0iQPGHAYCumen v dGQ+WWDxCUC2qEinNLbmLAXry L7wJBOtW6u9IpVoZeC8VCvnG9 MwDQThgskvWt61pP1qBvVdHuR 1 DFdjM4WshqJ2XVOgfJCyLKphS YK3E77zl0O8OXHmGTPoQEQ2sK M4uY5sjNhjnptrnMZmxPvvcqZ y rZkgMTouNRqqC276ZIKmlZoxQ kZFTUFMRTwvdGQ+IJDgSPY0pV ymEVjrDOYxqJ3dWKUkA8f2TyS w QtU3WAvqE5EiNYIirtzhQh67o P2xGkNjXnA9MLxwI1GifyY3IS PcaNZfYZmtMGK5R71zc7X7NFO w SUNpNWA8mMH5lS6pqKgrlrjfi GVmdDsgdmVydGljYWwtYWxpZ2 00RRRaxHkhJy3DCV21NV85F2L y PjwvdGFibGU+PHRhYmxlIHdpZ KBgTTqpAQHpQvVunVeoOR8xPd 7rTJAgGFIhcJdngYJsBfYil1i s VHPyUVqmHO3tvVlrB2KuoGL1F VFsk8u1Dd60F20aO1JxtGT+PG TrbSU3lAN4dO4cSqUnArT1ICi p C718QpHwsEJhEkjme5rev8rcw Ch7SuPqJPGktaJnuZqxGKB7c8 EuSu07F02hPVvyHFFaXPDcJYD i EOLvkUciqm8obZ6nKs0+PGNvb TI3kEN2sX8tHlWfHuJ1FQzzB4 34CzTpbEGqHzgnO31hM4LyvMG + NCVeYup9XBMnhUovLP4njLHdS NhlDw3wSQJ7EvAbHwPnXJaiQ4 HoANUuzuguptclvSK0PJWkCOS w xQ07Tk5fpIjzQf0mDYThOYO1X RZdwZAlC8YbnG1aEyHaVQOaHC DfS6QfdAVsYGfxB134BKhuXrF 7 IXPswiLiU1TtVXQzlQrrSqE4w 2M6Cl7TkDxjbYObWY5xLtUgTZ d0W9IoAum6YVVanHmaVZ9qqKJ k GNbgRu8keVfmiRyfAQ3iCMRpc jlpb472RcYnh4ymXNTnnTKgCA fzGGK2R16bd3O5LUJwWUNfSEW 7 tGF5sN8qiMfwxrlxvUSdfTumm mRslZirXWotKMauW715NWCbjL dlImQALrz4A2GyKha2YWFjmXp s OL4koLKnAWleXu8arTuvgAxrE Q1sLVHfpiuxb990WsIbe4gaEQ CkvUQyIIwgLIF6A88rv6G8YEM w JIZbGZI0gHF4gS6zoQqteczat GVmdDsgdmVydGljYWwtYWxpZ2 20LIOftEruNf1PAex4R4WwEku 0 SVWqwYtnEY7ztSDoCYjiPo3up VswjTxrVH6qTKWofjkbi924Vc Ycx1lgNPLpdZWfUVwvZEU6N42 s o0Z8GQZvZFBjFQL7dYN5lB6bo GlnbjogbGVmdDsgdmVydGljYW alMEhpD579BLSdyLcoBuQkgQQ y OjwvdGQ+JQ81ah12U7UdIptoS ga2URMqLUU7dLF1uM3zSQFnWH cex4Q1bUG4S1BpcuByir3eg1u s YXB (more content not included)... Normal [facility] ED Clinical Summaryon 2023 ED Clinical Summary [facility] ? Urgent Care [address] [place] [address] Clinical Summary PERSON INFORMATION Name: BARBRA CLAROS Age: 28 Years Sex: FEMALE : 1995 MRN: Acct#: Visit Reason: UC - Wrist Injury; RIGHT HAND, WRIST PAIN Arrival: 10/18/2023 09:49:58 Discharge: 10/18/2023 11:14:00 LOS: 000 01:25 Check In: 10/18/2023 09:49:58 Checkout: 10/18/2023 11:14:00 Address: [address] [place] [address] PCP: Provider, None PROVIDER INFORMATION Provider Role Assigned Unassigned Dalila Cotter ED Nurse 10/18/2023 09:52:49 10/18/2023 10:38:20 Juan Santillan PA-C ED PA 10/18/2023 09:53:30 Tova Parsons VEHICLE TRIMMER Nurse 10/18/2023 10:44:12 VITALS INFORMATION Vital Sign [...] Follow up with Orthopedic With: Address: When: Provider, None [address] [place] [id number] DIAGNOSIS: 1:Right wrist sprain Patient Understands: Yes - Patient/family/caregiver verbalizes understanding of instructions given Comment: Normal [facility] ED Patient Summaryon 024 ED Patient Summary [facility] ? Urgent Care [address] [place] [id number] PATIENT DISCHARGE INSTRUCTIONS Patient Information Name: BARBRA CLAROS Age: 28 Years Date of : 1995 Reason For Visit: UC - Wrist Injury; RIGHT HAND, WRIST PAIN Arrival Time: 10/18/2023 09:49:58 Primary Care Physician: Gerda Ivan Attending Physician: Juan Santillan PA-C Comment: Patient Education With: Address: When: Follow up with Orthopedic With: Address: When: Provider, None [address] [place] [id number] Wrist Sprain, Adult A wrist sprain is [...] health care prov (more content not included)... [facility] XR Wrist Complete Righton XR Wrist [...] MD 10/18/23 10:52 a Technologist: LT LEIF [facility] COVID-19, Rapidon 08-15-2023 SARS-CoV-2 (COVID-19) RdRp gene MARICEL+probe Ql (Resp) Not detected Not Detected [facility] Comment on above: Rapid NAAT: The specimen [...] management decisions. Fact sheet for Healthcare Providers: https://www.fda.gov/media/401315/download Fact sheet for Patients: https://www.fda.gov/media/599905/download Methodology: Isothermal Nucleic Acid Amplification Specimen Description .NASOPHARYNGEAL SWAB [facility] Flu A/B Ag Detectionon 08-15 Flu A Ag Detection Negative Normal NEG [facility] Comment on above: Result Comment: for Influenza A Antigen Performed By: #### U MICAO, UAX #### [facility] [address] [place] [address] [place] [address] Gear Generator Set Up Operator: Lakhwinder Tim MD Flu B Ag Detection Negative Normal NEG [facility] Comment on above: Result Comment: for Influenza B Antigen. Performed By: #### U MICAO, UAX #### [facility] [address] [place] [address] Gear Generator Set Up Operator: Lakhwinder Tim MD Portable XR Chest AP single viewon 08-15-2023 No acute process. [facility] EXAMINATION: ONE XRAY VIEW OF THE CHEST 08/15/2023 4:54 pm COMPARISON: None. HISTORY: ORDERING SYSTEM PROVIDED HISTORY: chest pain TECHNOLOGIST PROVIDED HISTORY: chest pain FINDINGS: The lungs are without acute focal process. There is no effusion or pneumothorax. The cardiomediastinal silhouette is without acute process. The osseous structures are without acute process. [facility] Yair Clinton MD - 08/15/2023 EXAMINATION: ONE XRAY VIEW OF THE CHEST 08/15/2023 4:54 pm COMPARISON: None. HISTORY: ORDERING SYSTEM PROVIDED HISTORY: chest pain TECHNOLOGIST PROVIDED HISTORY: chest pain FINDINGS: The lungs are without acute focal process. There is no effusion or pneumothorax. The cardiomediastinal silhouette is without acute process. The osseous structures are without acute process. IMPRESSION: No acute process. [facility] Radiology Study observation (narrative) [facility] Portable XR Chest AP single viewOrdered By: Yair Clinton on 08-15-2023 [facility] Work Phone: Rapid influenza A/B antigens on 08-15-2023 FLUAV Ag Ql (Unsp spec) Negative NEGATIVE [facility] Comment on above: for Influenza A Anti gen FLUBV Ag Ql (Unsp spec) Negative NEGATIVE [facility] Comment on above: for Influenza B Anti gen. [facility] [id number] 08-15-2023 SARS-CoV-2 (COVID-19) RNA MARICEL+probe Ql (Unsp spec) Not detected Normal [facility] Comment on above: Result Comment: Rapid [...] management decisions. Fact sheet for Healthcare Providers: https://www.fda.gov/media/905088/download Fact sheet for Patients: https://www.fda.gov/media/483491/download Methodology: Isothermal Nucleic Acid Amplification Performed By: #### U JERALD COLLINS #### [facility] [address] [place] [address] Gear Generator Set Up Operator: Lakhwinder Tim MD XR CHEST PORTABLEon 08-15-19 24 XR CHEST PORTABLE EXAMINATION: ONE XRAY VIEW OF THE CHEST 08/15/2023 4:54 pm COMPARISON: None. HISTORY: ORDERING SYSTEM PROVIDED HISTORY: chest pain TECHNOLOGIST PROVIDED HISTORY: chest pain FINDINGS: The lungs are without acute focal process. There is no effusion or pneumothorax. The cardiomediastinal silhouette is without acute process. The osseous structures are without acute process. IMPRESSION: No acute process. Interpreted by: Yair Clinton MD Signed by: Yair Clinton MD 08/15/23 Final result Normal [facility] HCG, ,Urineon 07-25 Beta HCG ( test) Ql (U) Negative Normal NEG [facility] Comment on above: Performed By: #### U HCG #### [facility] [address] [place] [address] Gear Generator Set Up Operator: Lakhwinder Tim MD , Urineon HCG ( test) Ql (U) Negative NEGATIVE [facility] Surgical Pathology Reporton 07-25-2023 Surgical Pathology Report (NOTE) Path Number: [id number] -- Diagnosis -- A. GASTRIC ANTRUM, BIOPSY: [...] BIOPSY B: MID ESOPHAGUS BIOPSY Gross Description A. BARBRA CLAROS GASTRIC ANTRUM BIOPSY Received in formalin are two lizama-white tissue fragments from 0.2 to 0.5 cm and are 0.7 x 0.1 x 0.1 cm in aggregate. Entirely 1cs. B. BARBRA CLAROS MID ESOPHAGUS BIOPSY Received in formalin is one lizama-white tissue fragment, 0.2 x 0.1 x 0.1 cm. Entirely 1cs. sanford Umanzor M.D./kb2:07/26/2023 Microscopic Description A, B. Microscopic examination performed. Processing Lab: [address] [address] Interpretation Performed at [address] [place] [address] SURGICAL PATHOLOGY CONSULTATION Patient Name: BARBRA CLAROS [facility] Rec: [id number] [facility] CONSULTING PATHOLOGISTS [facility] ANATOMIC PATHOLOGY [facility] [place], [place] [address] [facility] Coding Summaryon 06-22-2023 Coding Summary HTMLBase 64 RfrrhnqhCPl3mBx+PGhlYWQ+P J8YLGVbY04hcBHyiV4kB9ZHVA lOSywgQVBQTElOSyIgbmFtZT1 kaXNjZXJu IC8+LS7gXHMxKgnjkEEal9U9d RX5F62cvb1lGIktyKT8MVHmVg Ubmnxce0obuLj9MAleTdcyOxQ t BYCipQ81GDP4aA69Ox85oDHqu ADpo6gheFv6ShMnVOYgYAM5xS hvFNjhf5HxUEXcD97tgAKfp5J 6 KWXpsDnluWJqHaThdVO7bM8fF Hjztupfx5clrsimKsp1mp53dR Hdu2N9rJP6O3CyprS3VSJiqUB g HrhlzRVRcE6xmwidk7yplwavC oTgHGPsWDt9JZc8HAPudLxjIr HeWD91SLJ0WJPqnqWmA6GpMZX s qMeoNdL2k6J5Yd8CL1EHJnpaW 1VNTUFSWTwvdGQ+YY47sq68H9 OoZonoRap1OPOqLCI1mMH2eG0 n USZvBTizg4V8tSJ6T1YvojKzr k0bx4dyHRZzGKcaI80wlUOke0 T6TTCpfMS9DWMxvVqcYqDdvV0 3 Oyc+NLOcxLbji0JxFxhcx9ftn 8olbKn7GtyiLKZwoyCdpYdaUL K1j8TiOu4zYNFthGQ2aRL2aL1 i McIbOhJ7ACkhI539VoRysRJkU ivmO95mP0IpxDY+VMKxUhw4GQ FpqGwsNB3cK6CnJWKnilnmlEP m lGagGS6jRIEveyoyIWVriR9fX PAjC4m2YeQkNpX6ABwxT4KxAK OhbtixOf03dQ8oSoSfVzZ8BJu u L2FpwnJ0WWPahQAlCRibYCD1R 86gk9K6DXRgXYNeQHF6dXW3uU 1hbGlnbjogbGVmdDsgdmVydGl j PPakVFehI276UBPuiWodIqWvA GluZyBEYXRlOiAgMDEvMDQvMj AyNDwvdGQ+VXDxXTB3lMlyUWE n xSBvPOsrMr0kyXgrgTiqSO8cS VHckiuiSBUenZ7xIQIbiRXneR lhGH7tTFEqlmpmn762YjSfJHX 0 URJbvLDbB4YnfR6jXgShHZRpZ AYuL0NnbGTrONlzU559COmcCc E6JHEghmRbR9NcIAOwkXxpFvD 0 h3N1Jr2Zq2NnozbbZ5TivEAmS tTbQulqHQw4C5UaUugfaAI+PC 85YSLfGC32NMv6ZKK7bIbpSRt i BRErD0ZswI2mFuMaMDTzOYRmW yc+PHRhYmxlIHdpZHRoPScxMD VhPyTvxXzgEO6mMu8mRFIoMYW v fOzhpCMeAwIrz4hoUEYhIXqfA U7gmYpiR9IfkEA7KCDei6e0Fn 83J45vE6YdrKF+CIDcgVK5wHL 0 wQ6cVpTbLfT6GHtpO539CsEla AKcJwaxk0faq3rbzVx6GeK3BT GcbvByjVonSCK6q8EdSq25Q13 s IHdpZHRoPSIxNSUiIHZhbGlnb u8mmP2yQb8+LDQgcHK7sBK4dD 9wPyPdMlZ0SYisH289MfEbtWY v Pqkjb3zoc5bcuMy3PqUnIJHim eOhcFebVKO9x7PkUa83Y4AvhF sms8YzQkm1wx09fLMtr7O9hBF 9 C1HwEXBevgvpcMDykBfeDO8cJ JZvehpuWVMwqY0kKGGcO8i3Zd MeYrH8JQwgB6LvfxD1UWVetES g UIViuQETpG9bdgloy6zfthbxK qLlQOVmWHv4RRe1FCIrgLyaEr HdPCQ5OyA8LGT4zALqxO0glNp n kpnhxY8nTxy+SVP2gOMpvDUHV S3cQanqcIE+HOTaDFT1iKuvBD btKEPlwL2lOECcF9j4LnTiPgF 1 IIgyY2MzybE3KBWaoYFeOTFel VWPyA8czjqed5hocliqErYwAZ HtZWr2EWv1ZORnkSedZbHtRKY 0 WaQ5TMK1oDMrxH3flVszclcsw G9wOyc+NjrgcHmgMBO3UJm4Q5 KxTlp0CSRxeUxeHN9uoTObLDs u Oj3fnEjjhZdiTL9nCLXjikjfz 810JkLsn6goYRSatOOqOFdvRM K1P92cm5Y1TNLvAFRhDAT9rJP 4 uQ8tjDbticxpxPQczMjonyHxv XctPNlhFAerD323NICjpIybYy ElVQi0I5CoRty0IBKfdMniMO1 n rWKjZFbfOz9gpQpugBkzKR7kV WUovigmc694IuDaq1zdWQXtuC LsKOccANZ8D31fa9S5MFEgUMO w CQV7rLD1gH5baYdolyobzXHiv DdqrdGyzTrdNGbxHMcgM320NW VxaJtkSbFtgMg5N7OrZgd9BXL z iWzpLJ8pbMCcXFbhCo0wjTxzm CvlLQ0uGCLkhkbfe378KzKli4 rbJVEqfTUhOFdyOHQ0B64yo6V 6 PTPqGHFbQVA1nHO2pC0dsTnrq jogbGVmdDsgdmVydGljYWwtYW jdD986VAAmrYqgMlKwnLdlwvA g SYecMKn9O0FuXnmlxKF+PC90Y GDmTL92lJPztGGjz5uovOq1Wk YxFICgEMI8qVwgOEdby8HvXPG t X00ijJTvr2L1IVKqfKwvuHMxR qMdzTJ0zI6dNIzznwjsh4mgdx xfAzzrx0qxcb28vY45V87nWDg p GEJmNSQoGTAwKBYnaIdlbu4hp G9wIi8+JLHtbXA1lHS9fR0yAG BuZgB6NXyiI353XuIexNVyGgb j b7fse7tomUf5EaO3ETYfvsQrj PgtWPF8u4LbNr20M33rSXniUK HpFYKcXUBuPMHuoPaxtl6kbU6 w Ii8+UTAchWS3oIJ2rX7sZdPvY fN8QXmmR656LsSfdVGbOmufN1 2xA0MlmKT+ZKWcRsr1IFEolRu s EO0ywTJhFToqCv4bEAY9GsKaN gOiQNvnS3XhEKSvzklyokncbZ A5UTSfRUAgsR85Nt4gwZmhMQS w dJULdT1khbpdj9cuyhxyUqCiU HGoGMc6ZSz2BJYhhKauJdItXP I9UbY7CBL6yHBipI0ybErowei g gI5vE7PxLQCbnabtYv78qH5yT tKbZhM4XIgnRjw+N9oQT05SHZ NBGYZAVS1KEOZBUZtOPgncbLF + ECKtODU6zGdsSWazTIYbmK7kB UDqD3s8HyWuHgF6KPqwC8HoZE XgylfmGf37mL4oFpIbTmW2ZMa u X1GusqO2ZPHwzAEgYOnjCAA1U 87bi4C3YAMiBEZaRWE7pZY7eX 1hbGlnbjogbGVmdDsgdmVydGl j BNhaKUqwH266TRHkoHtjKbByX fD4AlN7ZLB9C5KyReo8TROavR erBE4lyKAeCIvkAx3inSzqrOw g GR4uTKGzflnfZKSmdW9zGAHym ZDcwNbmKU3mRZYyehrql857Nv SwMXD0VCUceRHdW0OcwJ5mAsM j YWZpMSQcS0ZnzNMqBSvpL930I HokYtW8JCXlddElC6VbRPQcoE ziQrK9b4L8Zc9cAvUQPURywkv v dGQ+URLdWEA2nPxsENwrZEIub C9zYHUpK2i5BaBxKtK3JBsvJ3 YrYHWtktliHr99zP7qVqAaSiL 1 DZqiZ5EnwtV6SAIbqIHzAEbuS ZP3R87up9A7VRYtLYIyIMB5sA A7oC0dxYqxgpaiwOMhzJgavaC y nJnvDRfbSFnnA592MFGyyHohU kZFTUFMRTwvdGQ+ODEnWSI4aW dzLWuzDKNhyH3tYDZfN7k7RhF w EaQ8NQtxS3VpZASmyutjWg26v T3oOiGsUjD0PRvyX0IxwtZ4NF PsdPAnMSylUKJ8O50sr6R3NTD w FGTiEDH3tZQ8mE4bqZdcwtkiq GVmdDsgdmVydGljYWwtYWxpZ2 50BEKwqCaqTpZwVRSmJN7bbWe v dGQ+EC76eu00T3HjKjswNis8L KKjLCI9dON2cL1oJVYnEXrpz0 G2lEA6O2FlsoDxsz7dt9bpSUJ z XEaiM07ihVJhw9J6JRGcmNR1F ZTikBvtPjTysK61Zvi+PGNvbG whj4TpTkiri5pyl9cemFn4GxN w HSHchsEkzPvrYYT5r6WbEt89R 29sIHdpZHRoPSIzMCUiIHZhbG dorp8frM2oNd3+CBVvyUK8qFD 0 sV8hCbNpDoU5WWfvY090WeEie PGwDrcsc9exl6kjqSl1XlGdJI QeocSgfTitCZP9f2XbGr72S1N v aJwzz2EtSty8xz27vFZlv1H2u UW7K4FoMMQsccnfrUIopEbtXQ 5mOTZeqvpaHLYmvW0xOMPxS7h 0 LqRqFqX8OIhpX7VzgoN1XRMhr KScHEOosYNFuC0jusrxf9mpyh vzBwEbYHAaSSj4LSa8KGHqlNt u YiHnYZQ3PvO2TSB4dRAgkI4ms MqigykwgV1pOrb+WMf5p2kkjA UqAV9afEJ2IE23RF59vXEje9J 5 zNH1Z1QzZVMwadgkojdamNB8K MZlLLLbcZ57Fi5zmCcnUt0kJY LrQBM6LNPxtJKiN4GkmJ9lNcU j LRQaATNpZ4MajYEvPKlsI232Q RqoKmL7IALfmeUzM9ZzHGAyrY heZeB1v7S3Vt8KNQ82ZO38GM3 8 vFOym9X4mBM6S7NlCCUwacefb zruyNN3MDMxZFFymP12Hx5sxH qlEu2uJJGhLDU0UUZqaONnF7N v cI0mQjJuRMCcCTVuZ7XfeNSqN KtlT878KBnlHiF7TUVtllDjO3 XbQLFyhGqzBdV4r8F6Mz5JAi6 6 RJ48IT48gJImp8R5sWJ4X1YnO XZqishzyofeaNR0JTXwLHKduN 29Vv1aaPfbNk5kJXFgDRS4CTM p dNElU2ItlL1yIjUdQEDaWOLzY 3XafVMgTHynO320ZEnvLlD4PI SpnkSiU5KbMYGmlFyhKgE2d7Q 7 Jh7FHCkshac7E6MnGvcdpIS+P G71KJChNP19hPHvxRKuy6esfP m0TgIqTAFfGAY1iRtcUOubz6H k ZXI (more content not included)... [facility] Coding Summary HTMLBase 64 CqzhufudUCh7eGd+PGhlYWQ+P M1FRTQdZ13snUQioR6bL3FWGZ lOSywgQVBQTElOSyIgbmFtZT1 kaXNjZXJu IC8+VZ5wAFBiJsahxJWyc1Q0h FE3P80tpt2zNDrirKZ4ZWGdJd Ptrwcar3tzwUn2ZAdbMlhvWiA t WSVdjI08IJZ2xQ38Nu91bYNkp IOtt1mpmVc9EkFxGICoADS3wM xoHIlcj4OaTKAyJ65mrYQhn1X 6 VLVtzJquoCImNqQffDZ9sG1nX Vkuyirir3emprgpDso5ya19rE Kqw1O7mWH4F1PquaT9GJHdxXH g KvxtlLDTuL5cgxhej8vanwunP nTbXQSjFYn2EOy8BUPsxTzhBu EbNC41HHN2TBOvrjOrL7VyHZF s mGwjNgR6v7U2Ua4QF2IEAkyzQ 1VNTUFSWTwvdGQ+JL89hw03U8 SnAhujRbf7AIHbXIB2bAY8vB9 n HAGtVCaeo8L5tUQ6M5NgwbPqq e0bs4vxUCDcQYvsR29zcDUxj0 Y2JUXnfUM3WZVucXwyNhFpbG7 3 Oyc+XQZqwSgdz7KcQploh4ybt 5wgnPn9ZpddTSQachVhoIsbBI B6a7BxSk5hUQQcgTY0qBI6zH4 i FpZnVvY1BDqrW073ZbOzdIDaK llaW02gQ8ChlRE+UCGgRoz2ZT TlnHdtCO7pR8TmPOKqlmgpgXL m yAhgXH4gUQPtpikmPYSjuG8nW SLtO0w9IlIfFwP6YWzzT3MtDS EapsahWz46wP4fEdSiDlU5EAk u Q5RdxhR7ZBGnxXHsTNdqNAO6S 10xi5Q0JFThFWFmNPZ9wYF3jA 1hbGlnbjogbGVmdDsgdmVydGl j WPyqHBaqP756UZRraRvjZbOuN GluZyBEYXRlOiAgMDEvMDQvMj AyNDwvdGQ+PBKwJNH5uPbeFGQ n tWWiFNmhGy6ewUtbiDunZO6eQ SSkxcolTYTnzE7kDPMmcLSuaH nqXO9qQFXymylsk861ArMaBRD 0 RBXirNEzS0KxqM7pVxEqKNDxE BVhQ4KocEEuNLktK303GAukBn T4IPEmnqFzG2GpVMZtxSijFdD 0 h6S7Ia8Wq8HzuhzeG8XpmBJdQ tGfCnaeAVq8F4RxOryxwIZ+PC 36QBYiLP73VFm3PUW8fQdaYGt i OISlQ5AfmE5zQiJgAJNvYGPiM yc+PHRhYmxlIHdpZHRoPScxMD NeAaXqvBnwWK1eCp7yWKLoTCJ v jStewRRnByMtz7wwKSFyMCtfK Y0izTpwG2UtoKC3DYMcf9f5Ow 69C98eP3NvtSA+PKUzpWB3iXD 0 oA1eLiKvKkV7LFetJ978KzSwu WQbDuqwq5ztu7esmUl0GxC7WN HazfAsoDolVAM3j7MeLg86W98 s IHdpZHRoPSIxNSUiIHZhbGlnb x3cbN1uQl8+FIEgvUZ2hHT6zN 0xRsHrXgJ4WDqyZ180HjFchVJ v Ehlik8lds6ogyIz8WvUuUUWgq wOrxPfkOUW2h1LbSo56P8BofB zuu8RsJal5zl14nFJyf9J4vVN 9 G2RcUDStzpfuwHFapEfeOX2vH VGzfwmaBMTebA9tOHOlG5e7Kg AqGaV3JZfwB6EtrtW2VMExaQC g XKFlrEVJaD7nqagou6nfjufjY xRwBQGkTEv0QEi0BKWavRqhSg PvMWO4GgM7XSL0qIRbeD3wqAx n lbvcaA8oOdg+LKA4bKLtdPEJW U8iNhwdeRS+NNBiIAU9cNsdEF ucFEZzeC7sBVJpB5p2FoLvJkM 1 EIktK9KtwvB4HKGdjLSpQCWtb JMXsQ1vfdqhx9ptxdtsXmElJK XsNYm9TVe5CLGjvOxiKkFeSYA 0 ZlZ5DLL9gUXqwI4umZdetovsp G9wOyc+GyrghYctTGM8IUc6G5 GcRpz8JJQbxBwnBZ4hqMQdWPs u No5wwYgmbXvjDT3qXXTaksmvo 386XxMko0beSIDggDFaQHleFM W4K70iv3I1CRXdDZJnNBR3gPV 4 iP7gfOaqhkibvRMvqXwwhoXym BipQFefMLokO900GADxyMhcNl CuAYi5B6YpAsj8QVPzfZixGD0 n jGTfAAqrFd7ecSsfcVyyIK0fZ FOfdvxvv509RePlk5yhDZPweQ NeRUroTKL5H17jf1B4MMUrGCT w XQP4dSW2nG4hyAimmhrzgJTyx YgmvsZlyNqkLKfiILwcK724SW RuyDloSxCkfDx0B5HpOsu5AFN z iReqVP0wjFElKSxiUu4fiEkks AoqLK9rKDWqkzzdc331CbIvv8 vrYOKzaZSwFUugYYP8P18mc2V 6 SXWoDVDjJKK8zRD0sM8utAgwd jogbGVmdDsgdmVydGljYWwtYW kxP749DYKjsLafUxUagFnmtbT g ORajLVl7J9OvSlhvzCD+PC90Y PWhCK29kIOzaPTpe4feeUs3Zf UyGPZxLGC2jNfvLJqbz8WvRRR t Y22tuHYmj0C6ILUqhEptsRCbZ dTnxEL1yR9uFKrfovmrt5tlht xhIwzgr8rizn98qW05B98vEMc p NACjUULgQVWvKNOwfVobgm0ns G9wIi8+NLCeaHL8qBO9xE4rRD BnMkY3RTnhP469IqXqrROhLhk j q5rju0akbYv6UiP9KCDmuvGfm PfaVFO2x7LdFq95U24eNBmgEJ RbINTpBVAuPUDsvQyxre9okR3 w Ii8+CIYbbDN6oBA2rN5xYeKhB bL3EGcsZ150IoJucEVtTpulA0 5nX4ZewID+OSIuKlf6IBKmhTj s FP4bjXEeEVrwAs4cDWY9VgHhL jWeIMamD7GhHCUpfnlkotuvvB C8XTHrSSKzvW99Zs7hlAjrVXM w gOZRxY5xflybk5hkeurmHtPzV RWqYPl2CSk0IHYgrFjoZcUdTY O6UaD3QFD7yLKjjG1ctBamitn g oG0bF9NmAOUkvjlcHw39cV9bH xGeWyK3MGzdVrb+C5oEZ50UOW XVXVZRUT6KXRFZQIuNUvcwfZM + YTPqPCV5hLqjBZvwTSZjiN0rV WWhJ6f6SrOeTsO6RGccO8KgHW LnpotnPx25jA5mMlEyAhS2COv u Q9PzaeJ7OYPuwHUfBInbGFQ4H 97zc8L5BGVxLHYiHCT3kGC7rQ 1hbGlnbjogbGVmdDsgdmVydGl j XLacPXmzZ872LDKruNnkLlRrI kE9FnL2WFQ6K7RrEme3IIVgsL qzZA8cgJCpAXfuBd6uwCwzzGd g DD4oVZCxvokbSTRxvX4oLTLbe GMwpFcwCJ8wLUHggsdqk322Ip HqLUR7ZIYddFDwV0DvzN0uEfT j SJRmAOJzO4AfoZKhWHhyA642D OjhVxZ6PRMcsdGdU4KzSDDwvW tyVgM3v0R2Ud7xEaYCTEIcdeb v dGQ+GBYmZXL1eNnjEVajYZGmo N5yDNIlE9p3StImNfB3VAfuK4 EjLLXhdxlyYy12jF6nUqOiZlU 1 TLecX1QjklQ4DGKocFDsZRsbH WO5F79yz9M9XNTtUKXfHER7cQ C2hV9zlJkxylthePVuqQeavfV y fXueOGufNEmyL807JBQfjQkhX kZFTUFMRTwvdGQ+MLWwSAV7kX ndLBitWVAhdT3nFOJcH3p6ZzF w JvD2IDxrI7JfJCJhatecXo02s N1yPvQjTvA6SLgtD1GnouH7WI KrqOAbPQlvJSG7O56pu4M5XRO w BELwNWX6gWI6qE5ayLeutujsw GVmdDsgdmVydGljYWwtYWxpZ2 71SQEjsEdbEzLhVDNxCX1xhAs v dGQ+CZ79ft35F5KaTrwsLmz9Q VBgXSI5gMQ3rA7lGGWiYLpdc3 V5dWE9J3LsrhZdei5kh0hqBZE z LIcsW64zxKGld7L9KTIijXF6W JEdqYodUmCefU91Xdb+PGNvbG efa8LyRahlz3kur5lcsPm2IhV w OTKubsBnhAzrAIJ2e7IaGw96P 29sIHdpZHRoPSIzMCUiIHZhbG eibw5taM0qBi7+ZQLkvKN5rQR 0 dI5gHcWwTmX1GApsL068IcSxq IWpBowzg5nwd8fwjOz4IdQxBM KlreYaqAdkALF6n1ZlSk21U6V v dRfcq4OyZjn7fg01tENdm3Y2j CM3O1HwOXHefwbopOMecMocEL 3sILDohkaqYZIauZ9fCNLjJ4e 0 CiNgEhN8DMqvS0LtjuH3EDZah NKhYHVphZIFuJ0twapwf3xtsi zrAxUsNONuYAo5TLx3XIEltHz u GlJyRIZ1HjF6OJT2aCOpqZ8qv LcluhpoaR7nIyw+XSv6g8rtmO HwQB6kvCX2YA79EI04jLAkc8Y 5 vAL2I4JuHBCwdibytugjrJE4P PBvBILzjX41La0otXlkZl1cNK BhIAE6IGSniEMdK5HkxI1yKfZ j SOQvVVXtN3YapBCpIGmpU285A AxoDqI6ZFApwmTfT2IbEUVtbQ poFdA2q2G1Le1VHU08KF69PD8 8 uMYkq1F6rVY1C6YlMWKqjbgie hmgmIO6CJEwSEMmjJ81Kx9svJ xbSn6dYNLqIJS6WNBtrIHtE5O v jF5dRwRsWOIwADGzH0BlrKMeD UxtG669INnhSiQ6BECctjPgY1 DdICUtzDotCwS6x6M1Vn2XXf8 6 ZC02TD22nKQip0A0qKE6D0UeW QPjcvjkpwweaHP2APNuDDWkvZ 27Ph4xjXanOp8tHQQjHNX6JZB p uYYkW9YaxL3gMjHnHKOrFYLlE 2LpyLWjQXbsA393GVpqBqE6FF GhigZkA1CwHIKpkStxRrU4i2A 7 Vh2LKOlpuei0C8XvMfjygCN+P T56KSWuPC18xFFujXLzo9fjaN e6WeQpGASuFEK9hQkiDOpqj0E k ZXI (more content not included)... [facility] Coding Summaryon 06-16-2023 Coding Summary HTMLBase 64 AyvxlgenEMp9nQl+PGhlYWQ+P R2DSIZiF72hzJYuoY5kI6DCGK lOSywgQVBQTElOSyIgbmFtZT1 kaXNjZXJu IC8+JL8mXQSsQbmjqHKbp5U5s GD3F10yqy1gBYobfZX1ADLjPt Jbfwwkg1xwbYw4NEgbZhbeAhG t LUCfxY61ZIJ4oK41Lg55vLVkh DKno1bkqGx9ItFaAYGkNJN5vZ vqBVtkm7FnTJKdF51jpCDsk9Q 6 NRJibNzaxUJzPdOdaNK0xC0fW Ewvcprmz2qtmasrGzp0tp97uD Qhd2Y2rCO1P4YhjaC7TGEomID g HcpahJNBvW2yanazb6mgduntB hCwBVSxWKq4LEa1YMUevZzqHh VsWJ44IDY4UIZanqPeH1AuWWH s gCkhLxJ3i6O8Lx3NQ8AHFopqX 1VNTUFSWTwvdGQ+FM32rf38A7 XfOtfgUin0RBEhIWG9yOJ7hM9 n QHTlLMjcw4Y9vVD7E2KfvxBmg t4cl6kzDYRcFUhzB51fkYRvh4 J6ZNAdwWG9NHLtlHhsDdAiiP5 3 Oyc+ZMSwqDuft1PpTduec9kqi 2uwhKg1YxaaEODeysKzoJgnBL U5v5DnCv3tMSOqyUV4nMO9gQ8 i VyBcHuE2BHwiW020NcJvzUFuM wrvW73cH4CfaXZ+NRFhWrm3PS DsyEqqBV7gB5PgHUQagjszwNH m cEtsCE0qEIQkdtjlKFFdnZ7wC RVgU1s0QrCvPmK7FIavW3JyQL XmubtbQw02kT5mNsRlJoP4SGy u N0CoqlX9KZGdiNLqZNlgUQO1W 70xb5B1VBNnXLWkGFF6rFB5mM 1hbGlnbjogbGVmdDsgdmVydGl j JPltFInwR181AJBzqIhxPwHtL GluZyBEYXRlOiAgMTIvMjkvMj AyMzwvdGQ+USCyXGQ7sOgzOZJ n xSTkPQgvJu4sdIdipOnnUD2pV BJiiczhXTPcuN1xRYTmgKMiqY wuWM1uBGNluaamz741VgWnCIR 0 FJDvbDNsG1EqfV2fOcPcJOInB BVbL5VeoGUzFEkqT391BVhaJn S7DWYnbjGsF7DaQGUwwKewWdG 0 z4A9Xm5Un7TtgsejX5YnrEAkE dNvHktnKHi0W8IxZgfqhXX+PC 09RDOjTR06YGh0OVV8bPrnGGu i NMVbJ9PklV7tBbNkBJLzRVSiL yc+PHRhYmxlIHdpZHRoPScxMD JjVlGhaRnmXJ3gTu0hDKCuGUN v nLhmxCZxLhChh5ogZFQnPBjpF Y7paDdeD6ObjXC4RLSuu6e2Ye 54P56pS2YbiBB+VRGheOO1dTO 0 rT4rFeSvXqG3DAbyA263DxBbn DWjEysyj7sed7vwdRx6BxT2EK ZixsBhhUnbHTI0s4YgJu30R44 s IHdpZHRoPSIxNSUiIHZhbGlnb z3lsV2jHn5+VFPeoCM8kZL7dK 2sIpRhTmB5EZcjR324JwXllGU v Fgfaj7kjg2vynRk2VkWuRWWvy qGrzBnuISB9a1AyKo35I1EjiK pba1NqQug5os32eLEpw8Z4fVG 9 B6ZnRQQsabgywZYwpWoxNQ7sZ BDberqtLGTblM4uNAKxD6t3Xr XyMhI8IXygV5HbfbK9UIFkrPO g FCDfkPPOuS2lpfphc6wkrjfuE kYqAXBkHNd3SGj2NQQewMwcHl UiOQP8JcG5JQC4gFNceH9jwLs n ucczhS9mGdx+QPO8rHJwoHPRS G3fCoajhOU+RWThDXI5aFvaCP siFQJsmD4sAIOqR2q4PoTsTmM 1 UAzzP5AcjpW0XVLjiCEjLHEtw WABdG7brqskk6jdafzkCaOqIW LeNYo4LRi2KOEbpMnbAnWyCMR 0 EzY7ZKZ1yAJinS4vaGpmnoptr G9wOyc+XmyjpGfkEIT0KUn9O7 NuQpw8JUFqvTptTO7blHAaSOo u Hc4zbGckhVwhFS9bVKMiefenl 688IqNjh3nfBAFasWYePBlxXJ B5J83hy3Q6ZPAfISOsLWV6cGW 4 qX5cqCausqnksJSowCbtdtLfh RorSPccWAmtE730QMAltZdcNi ZvNRq6R1GwQmo9LGHzoHtpUL9 n cOPyMUyzLo5kiBccrCdyMG0aK LYdolswr088UkDku5maXMTjaG FgPSdyVTK7A29tu9T8MBTsMSR w CXE8lPX1rS2gpQpsttspeGMln JrszgUkvCwtEWjgEYjlD276MF PiaAwoHfGhjTc0O2XyAjy8FHK z xRbaCI0izDVnWEnrQs7rjOmrv CnyTL2sXMYirnxsz338LnCmg5 maYVRqmHZlBSroEXN2B08ge5W 6 BUJqYVYpYNV5xVM9dQ5trMbxs jogbGVmdDsgdmVydGljYWwtYW jlO522WBYbiGciXsGquJljelN g BWacSSd7E4QnHhmpbMR+PC90Y GBqMY88kMSqpHDlx2ihnZo2Kr RlQIPdCBI6hJcqNNyxj9PaUHK t R78uwEIur6P8LTTgeOuvqCUsO hUesQM2zG2xITvfadpgf5ypov bzBxpjo9avxj70zW11M02kHBt p IGJqQBJaRNGvMREeyWyfji4ke G9wIi8+KYLarPT9xXJ6fN0oKA CtYnZ9KLarQ694PfJprGHoSfz j n4yhn5esoTh2HlA3PUAyxxGdb SriXFB8q6SjGz31Q35pBEsnXJ OeAZChRJSzYTTbsNgnak2uvI2 w Ii8+FONjzEG9pAM4sK2cTvRrI wQ5PBolA369WxWkcVVkXvjhW4 7gO0WrkFX+CPAiDzl1VJGznBz s QL0wrBIqBRzjXo0bZOB9MiGjB fJjWMjdV8TcUBTdniyptdjpoN X4JARwCLQysQ15Ks8ewQwfLCI w jYVVkD9kpbqec4zonxuzWbMfK VCuQEm9HEp9GCLuiRrfUlVhZU X3YwC3STW1mNGiqR7zaAcblsg g lP0vB2HtSPTgyatwVa63vK6zC yCeTkS8OKgeIfm+D7pQW96CFK QXSAMVJO9XKDSHADsDSymooLS + YXYwLJW1uCoqVImxEGWrqY5rD OHvW0v7YtItSpV8BKipK0CmDZ YyohyfRo72fE1cRhXlJvJ0ZJe u F9CoepR8XWKrjYSnYAbmAIV4P 08yr1F4WGYvWKBeCTA6qMC4xF 1hbGlnbjogbGVmdDsgdmVydGl j DTffYFcnP565QXEhaIbrTeOzW wQ9JmI2QRC2V3SrPqx2LUSstM mcXE6lnUWgMYveZc4fyYkimTc g VT1pPUQqlftnVJUniT6aJUDrt GHqgRlcPM4aLSCcsguwg398Gn SuYQD4HZRrbZOmV8JexI1uGaH j DALqGQTuH2NipCBgZFnzP962J AelLwY5FBLdiiGoT5VnFYAgcT foXsB8b3L6Le5eKhMKYZPxrtj v dGQ+EJEeKRI7xDniTLgoDQVhw Y4kCUPlI7k4ScTzGlZ2PGmxK3 RaFWEjdvbcOx92rL8lZkTqCvW 1 NNaeD7KpogA8EHWngHOqHFuvB YQ3B37kw0N5LWYrMZZuEMF4xZ B7fL4wvLocpvsjjALrfOvuaxE y aEmjOLgkGKwjO658XUAqsYrnD kZFTUFMRTwvdGQ+ZLWrJJE5rV ksCKwbZREjvL4gOOQpA6a0TjT w UzW5XSieU2JsTLIlyarpDs37y F8sQwHmGnT0BSklS8QoigG9FC OuvYMgBFjpJPX4O66vq3V1GFA w DSEmQMO6yKL7sY5yzZzlmljqy GVmdDsgdmVydGljYWwtYWxpZ2 49IXJqlMtjPf3AWZ90WC83H9A y PjwvdGFibGU+PHRhYmxlIHdpZ MFcTEtbNGLcBxHshYycPQ4aSu 9vCEVnLFAdjGijjURbMvFdm7z s BDJcWPiuXY9phXywV8ObaJV5K NGnv8v9Xk44F80hX0NnkHB+PG EqfBY1sVD2fD9sTaGfKvT9OUm p A042CbTghNEdHcqrl6vqu2jxc Oq5BxLjHZEqkcKsvRggECP9g0 PeSc78H08fTRhcPDQjBDEeXUO i MHVpqBauum0qrD7jKx9+PGNvb FV8xFQ9tK0aTdTeLfJ2MFbqK8 31AjHpjMHiDroyB50oE2CwfSF + FRTbNhx1YKPisJooTT7vnKEfM VxsYg3cNLU9FsZbQgNtLSkcY7 VuLCTcsckispqyqOJ7WPJvJWQ w lE80Zi0ryUodRy3dDMLhDWS7L FSmhSAiR1UdwK4wViIcVZXzBV GiJ7UgnDNlNZmoE185IWmuXsX 7 PMUhzpPbC0XzMKTcmSgoHqV9j 4J5Vk1ReCqozZErEI3fRaLtMA r0L1UjQmp1VAKujLuhXV6vsGE k KAcoBv2deSgnnXznQL2cLHCsn tcgc695HzWcf2jeCJIoyQCnTD qaNYV2X80aa9E7KKAiGBEoHCS 7 pMF0eC0yaObttltjjCNofXext eQwcVvrGFptPPbzM752ZNVneR kpKsULHgc2D5DfMgz7NTPyeLe s KQ9mkXDcJBnlYo7tyYgwyOdhR P9sKFDgmkrkl842ZeYxl8qaMM IoyZIoGKxcDAK3Y98rf8S6PFK w QNUdSRS5vGB2yN5zvAtaiuayl GVmdDsgdmVydGljYWwtYWxpZ2 06GTKwcOdvUd8NWcy9Z2NnSab 0 BKJfvKbhGH5egPPaDJntYo5wl VyjhRauRI5tEUBrcayyg302Ky Kxc8brKAVpwFGbRBmpIBC6N77 s s1Y4PMUkOZWiOZB6lNU6dP6uc GlnbjogbGVmdDsgdmVydGljYW hyWFtnW030WPXuwMqnZlBgvJB y OjwvdGQ+IA37nr17Q1MtOpqbZ sn3GDFrEHW3xGB5qF5cNLPyQF uvb9Z9dXB5A0McfzEefv4hy6y s YXB (more content not included)... Normal [facility] .Auto Diff 06-09-2023 Auto [place] % 8 % Normal 06-30 [facility] Comment on above: Performed By: #### 1 [id number], 89071912, 5990724142, 7286528, 4069703966, 3909748465, 1127251859 ####[facility] (DEFAULT)[address] [place] [address] 78923 Baso Abs# 0.0 x10 Normal 0.0-0.2 [facility] Comment on above: Performed By: #### 1 155430683, 14205908, 3086943457, 4260854, 0483853172, 9517762134, 0122258810 ####[facility] (DEFAULT)[address] [place] [address] 79046 Basophils/100 WBC (Bld) 0.4 % Normal 0.2-2.0 [facility] Comment on above: Performed By: #### 1 262494455, 34571161, 2437623156, 3263444, 3714542586, 9239962286, 9881339802 ####[facility] (DEFAULT)[address] [place] [address] 65559 Eos Abs# 0.2 x10 Normal 0.0-0.4 [facility] Comment on above: Performed By: #### 1 741963809, 99066504, 7758971479, 3080317, 5557089392, 2406285011, 6490993575 ####[facility] (DEFAULT)[address] [place] [address] 96579 Eosinophils/100 WBC (Bld) 2.4 % Normal 0.9-4.0 [facility] Comment on above: Performed By: #### 1 124576009, 00434676, 6776768786, 0904032, 9047231517, 9469119857, 1486150656 ####[facility] (DEFAULT)[address] [place] [address] 39388 Lymph Abs# 2.3 x10 Normal 1.3-2.9 [facility] Comment on above: Performed By: #### 1 363693492, 08221369, 3158697471, 4355982, 1612706892, 6141843289, 0393733279 ####[facility] (DEFAULT)[address] [place] [address] 23944 Lymphocytes/100 WBC (Bld) 35 % Normal 14-48 [facility] Comment on above: Performed By: #### 1 991744490, 65273042, 1584805750, 1093923, 9140146342, 4820566527, 4373321954 ####[facility] (DEFAULT)[address] [place] [address] [place] Abs# 0.5 x10 Normal 0.0-0.8 [facility] Comment on above: Performed By: #### 1 913972384, 01102113, 4880931276, 3378650, 9808784522, 5687990316, 2384734457 ####[facility] (DEFAULT)[address] [place] [address] Neut Abs# 3.5 x10 Normal 1.5-9.2 [facility] Comment on above: Performed By: #### 1 771250005, 58820205, 4336793160, 2317005, 5575603576, 2766870056, 2229908351 ####[facility] (DEFAULT)[address] [place] [address] Neutrophils/100 WBC (Bld) 54 % Normal 44-88 [facility] Comment on above: Performed By: #### 1 825787308, 79203365, 9478937441, 9473459, 7280013890, 1402495464, 3900015733 ####[facility] (DEFAULT)[address] [place] [address] CBC w/ Auto Diffon 3 Erythrocyte distribution width (RBC) [Ratio] 14.9 % Normal 11.5-15.0 [facility] Comment on above: Performed By: #### 1 044648320, 69044591, 0588048311, 6832165, 9659780258, 4166255024, 7027647168 ####[facility] (DEFAULT)[address] [place] [address] Hematocrit (Bld) [Volume fraction] 34.8 % Normal 33.7-40.4 [facility] Comment on above: Performed By: #### 1 575325666, 55188478, 9623489874, 1778425, 5469281231, 4018276581, 0379060844 ####[facility] (DEFAULT)[address] [place] [address] 20088 Hemoglobin (Bld) [Mass/Vol] 11.6 g/dL Normal 11.3-15.9 [facility] Comment on above: Performed By: #### 1 962639876, 72768196, 3551661319, 6645091, 8276664236, 3617100970, 6686224128 ####[facility] (DEFAULT)[address] [place] [address] Man Diff? Auto Invalid Interpretation Code [facility] Comment on above: Performed By: #### 1 284225664, 03723404, 9537127911, 7163796, 9027824622, 5814814662, 6065292257 ####[facility] (DEFAULT)[address] [place] [address] 80627 MCH (RBC) [Entitic mass] 28 pg Normal 24-34 [facility] Comment on above: Performed By: #### 1 157981360, 11847292, 4275385334, 3063954, 7966267956, 5620900191, 7299796734 ####[facility] (DEFAULT)[address] [place] [address] 63550 MCHC (RBC) [Mass/Vol] 33 g/dL Normal 26-37 [facility] Comment on above: Performed By: #### 1 969464228, 11111868, 4323348237, 7070382, 1285335338, 8897994849, 8623288324 ####[facility] (DEFAULT)[address] [place] [address] 60360 MCV (RBC) [Entitic vol] 82 fL Normal 81-100 [facility] Comment on above: Performed By: #### 1 543026598, 86196822, 3306261987, 0348318, 0898648537, 4711871597, 4169059748 ####[facility] (DEFAULT)[address] [place] [address] 92308 Platelet 227 x10 Normal 138-427 [facility] Comment on above: Performed By: #### 1 045719614, 29886936, 1302556576, 0067548, 5069738100, 1844756164, 3388544637 ####[facility] (DEFAULT)[address] [place] [address] Platelet mean volume (Bld) [Entitic vol] 7.8 fL Normal 6.3-10.2 [facility] Comment on above: Performed By: #### 1 820344551, 83738600, 4492043915, 1903403, 0564928503, 1910946239, 7611818767 ####[facility] (DEFAULT)[address] [place] [address] RBC 4.22 x10 Normal 3.70-5.30 [facility] Comment on above: Performed By: #### 1 925043976, 82147405, 0050918802, 3088229, 6521583706, 1943198451, 4465530711 ####[facility] (DEFAULT)[address] [place] [address] WBC 6.5 x10 Normal 3.5-10.5 [facility] Comment on above: Performed By: #### 1 471297782, 14306103, 9777347236, 7067361, 9120444644, 0165613898, 9742958825 ####[facility] (DEFAULT)[address] [place] [address] CMP Standardon 06-09-2023 eGFR Non AA >60 Invalid Interpretation Code [facility] Comment on above: Performed By: #### 1 405755771, 09926116, 8062860745, 3855964, 1523257515, 0705973002, 7877250365 ####[facility] (DEFAULT)[address] [place] [address] eGFR AA >60 Invalid Interpretation Code [facility] Comment on above: Performed By: #### 1 874193026, 00358835, 3631662296, 5696105, 5200637395, 6579177009, 3944435975 ####[facility] (DEFAULT)[address] [place] [address] Albumin [Mass/Vol] 4.0 g/dL Normal 3.5-5.0 [facility] Comment on above: Performed By: #### 1 219158635, 53166381, 3702866722, 6810651, 5232446665, 0479189941, 0596732040 ####[facility] (DEFAULT)[address] [place] [address] Albumin/Globulin [Mass ratio] 1.0 {ratio} Low 1.4-2.6 [facility] Comment on above: Performed By: #### 1 066356346, 95835756, 5720162519, 1537389, 7159048373, 2791204405, 6467441379 ####[facility] (DEFAULT)[address] [place] [address] Alk Phos 60 IU/L Normal 32-91 [facility] Comment on above: Performed By: #### 1 726741855, 26099486, 6261768087, 5494530, 3613437048, 2375580032, 7940562274 ####[facility] (DEFAULT)[address] [place] [address] 75851 ALT [Catalytic activity/Vol] 25.0 U/L Normal 14.0-54.0 [facility] Comment on above: Performed By: #### 1 748449367, 26091489, 4658321680, 8318857, 5916793482, 2058289349, 2392371294 ####[facility] (DEFAULT)[address] [place] [address] 51580 Anion gap [Moles/Vol] 10.8 mmol/L Normal 5.0-19.0 [facility] Comment on above: Performed By: #### 1 683963673, 83131541, 2918317012, 9070187, 4369693082, 9192428916, 3326512530 ####[facility] (DEFAULT)[address] [place] [address] 27910 AST [Catalytic activity/Vol] 22 U/L Normal 15-41 [facility] Comment on above: Performed By: #### 1 961328903, 40438426, 2807188412, 6591073, 9038003651, 1238490824, 4680413362 ####[facility] (DEFAULT)[address] [place] [address] 03669 Bili Total 0.4 mg/dL Normal 0.3-1.2 [facility] Comment on above: Performed By: #### 1 555057049, 81838257, 5670517644, 3403176, 6424782594, 9757908204, 4184207973 ####[facility] (DEFAULT)[address] [place] [address] 07299 Calcium [Mass/Vol] 8.7 mg/dL Low 8.9-10.3 [facility] Comment on above: Performed By: #### 1 077861233, 05724401, 8176081850, 0703815, 8616273682, 6943637730, 9600370807 ####[facility] (DEFAULT)[address] [place] [address] 72746 Chloride [Moles/Vol] 107 mmol/L Normal 101-111 [facility] Comment on above: Performed By: #### 1 032983522, 18869156, 5806617491, 4600319, 4824872116, 6892308916, 4298611939 ####[facility] (DEFAULT)[address] [place] [address] 30710 CO2 [Moles/Vol] 23 mmol/L Normal 21-32 [facility] Comment on above: Performed By: #### 1 368405817, 22831224, 8077909511, 8518787, 0926477947, 9330628047, 2253698901 ####[facility] (DEFAULT)[address] [place] [address] 91906 Creatinine [Mass/Vol] 0.53 mg/dL Low 0.60-1.30 [facility] Comment on above: Performed By: #### 1 943331218, 07617703, 4967945294, 2168241, 8462363304, 5269941499, 4242072703 ####[facility] (DEFAULT)[address] [place] [address] 67053 Globulin (S) [Mass/Vol] 3.8 g/dL Normal 1.5-4.3 [facility] Comment on above: Performed By: #### 1 171214820, 98434610, 3104912327, 8910671, 7382137364, 6284912789, 8867637134 ####[facility] (DEFAULT)[address] [place] [address] 93898 Glucose [Mass/Vol] 92.0 mg/dL Normal 74.0-118.0 [facility] Comment on above: Performed By: #### 1 267113373, 67008147, 1032490908, 1297817, 7638155332, 5717600829, 3586506953 ####[facility] (DEFAULT)[address] [place] [address] 33967 Osmolality 272 mOsm/L Invalid Interpretation Code [facility] Comment on above: Performed By: #### 1 228366828, 24630310, 5563012449, 2624607, 7808271283, 7590322639, 9409644945 ####[facility] (DEFAULT)[address] [place] [address] 77635 Potassium [Moles/Vol] 3.8 mmol/L Normal 3.6-5.1 [facility] Comment on above: Performed By: #### 1 701987653, 15154980, 9387091045, 7191326, 0826817342, 0221358013, 1853792415 ####[facility] (DEFAULT)[address] [place] [address] 74109 Protein [Mass/Vol] 7.8 g/dL Normal 6.5-8.1 [facility] Comment on above: Performed By: #### 1 232577750, 62497275, 2659624438, 5332156, 1588010863, 9453404388, 3168713044 ####[facility] (DEFAULT)[address] [place] [address] 41243 Sodium [Moles/Vol] 137.0 mmol/L Normal 136.0-144.0 [facility] Comment on above: Performed By: #### 1 802676674, 84938736, 8914483784, 5690548, 2043068145, 1535070295, 2920348907 ####[facility] (DEFAULT)[address] [place] [address] 19297 Urea nitrogen [Mass/Vol] 9 mg/dL Normal 8-26 [facility] Comment on above: Performed By: #### 1 287590480, 84400469, 0654275275, 6638870, 2166292704, 9933128858, 1814003650 ####[facility] (DEFAULT)[address] [place] [address] 25544 Urea nitrogen/Creatinine [Mass ratio] 16.9 mg/mg High 4.6-16.2 [facility] Comment on above: Performed By: #### 1 313011334, 84178477, 4369249653, 3923909, 1558136916, 5869736542, 5575651972 ####[facility] (DEFAULT)[address] [place] [address] 13672 ED Clinical Summaryon 2022 ED Clinical Summary [facility] - Emergency Department [address] [place] [address] 72255 ED Clinical Summary PERSON INFORMATION Name: BARBRA CLAROS Age: 27 Years Sex: FEMALE : 1995 MRN: Acct#: Visit Reason: Dizziness; Headache; MIGRAINE, DIZZINESS Arrival: 06/09/2023 11:32:00 Discharge: 06/09/2023 13:05:00 LOS: 000 01:33 Check In: 06/09/2023 11:32:00 Checkout:06/09/2023 13:05:00 Address: [address] [place] [address] PCP: Provider, None PROVIDER INFORMATION Provider Role Assigned Unassigned Anjel Yates MD ED Provider 06/09/2023 11:33:05 Renetta Stern VEHICLE TRIMMER Nurse 06/09/2023 11:46:14 VITALS INFORMATION Vital Sign [...] Home PATIENT EDUCATION INFORMATION Instructions: Migraine Headache, Lpsn-rm-Likm Follow-Up: With: Address: When: Follow up with primary care provider Within 3 to 5 days DIAGNOSIS: 1:Migraine headache Patient Understands: Yes - Patient/family/caregiver verbalizes understanding of instructions given Comment: Normal [facility] ED Patient Summaryon 023 ED Patient Summary [facility] - Emergency Department [address] [place], [place] [id number] PATIENT DISCHARGE INSTRUCTIONS Patient Information Name: BARBRA CLAROS Age: 27 Years Date of : 1995 Reason For Visit: Dizziness; Headache; MIGRAINE, DIZZINESS Arrival Time: 06/09/2023 11:32:00 Primary Care Physician: Provider, None Attending Physician: Anjel Yates MD Comment: Visit Diagnosis: Diagnoses This Visit Dizziness ([id number]) Headache ([id number]- [id number]) Migraine headache (G43.909) The Pharmacy at [facility] is open Monday through Monday from 9A [...] alcohol and/or drug addiction problems; contact the [facility] 09/01 Crisis Hotline -Text 4HDMF to 460373. If you received any narcotics, sedation, or [...] and treatment you received today in the [facility] Emergency Department were for an urgent problem and are not intended as complete care. It is important for you to follow up with a doctor, nurse practitioner, or physician?s cashier assistant for ongoing care. If your symptoms [...] so we can reach you if necessary. [facility] Emergency Department has provided you with a complete list of medications post discharge. Please inform your department editor/provider of your visit and for further instruction on these medications. Any specific questions regarding your chronic medications and dosages should be discussed with your primary care physician(s) and/or pharmacist. New Medications [facility] [id number], [address] [place], [place] [id number], [phone] rizatriptan (Maxalt 10 mg oral tablet) 1 [...] This Visit (more content not included)... Normal [facility] Extra SSTon 06-09-2023 Tube Collected Yes Invalid Interpretation Code [facility] Comment on above: Performed By: #### 1 [id number], 23002553, 0854367141, 5916691, 8226426771, 3522946169, 2966139622 ####[facility] (DEFAULT)[address] [place] [address] Progress Note - Nurseon 05-20 Progress Note - Nurse Patient walks to r oom 5. Patient is alert and oriented. Patient is here for a migraine and dizziness. Patient has been experiencing it for the past two days. Patient has a history of migraines, which started 3 months ago after she gave to her child. [Electronically Signed on: 06/09/2023 12:29 EST] Hereboba, September RN [Verified on: 06/09/2023 12:29 EST] Herevia, September RN Normal [facility] UA w Culture if Ind Standard on 06-09-2023 Breakpoint UA Normal [facility] Comment on above: Performed By: #### 1 [id number] ####[facility] (DEFAULT)[address] [place] [address] Color (U) Yellow [facility] Comment on above: Performed By: #### 1 [id number] ####[facility] (DEFAULT)[address] [place] [address] Culture? Not Indicated Invalid Interpretation Code [facility] Comment on above: Result Comment: Resu lt created by rule GL_MAGR_ADD_UA_CULT1 Performed By: #### 1 [id number] ####[facility] (DEFAULT)[address] [place] [address] Glucose (U) [Mass/Vol] Negative [facility] Comment on above: Performed By: #### 1 [id number] ####[facility] (DEFAULT)[address] [place] [address] Ketones Ql (U) Negative [facility] Comment on above: Performed By: #### 1 [id number] ####[facility] (DEFAULT)[address] [place] [address] Micro? Not Indicated Invalid Interpretation Code [facility] Comment on above: Result Comment: Resu lt created by rule GL_MAGR_ADD_UA_MICRO Performed By: #### 1 [id number] ####[facility] (DEFAULT)[address] [place] [address] UA Bilirubin Negative Normal [facility] Comment on above: Performed By: #### 1 [id number] ####[facility] (DEFAULT)[address] [place] [address] 43847 UA Blood Negative Normal NEGATIVE [facility] Comment on above: Performed By: #### 1 [id number] ####[facility] (DEFAULT)[address] [place] [address] 59649 UA Clarity CLEAR Normal CLEAR [facility] Comment on above: Performed By: #### 1 [id number] ####[facility] (DEFAULT)[address] [place] [address] 58441 UA Leuk Est Negative Normal NEGATIVE [facility] Comment on above: Performed By: #### 1 [id number] ####[facility] (DEFAULT)[address] [place] [address] 36877 UA Nitrite Negative Normal NEGATIVE [facility] Comment on above: Performed By: #### 1 [id number] ####[facility] (DEFAULT)[address] [place] [address] 39976 UA pH 6.5 Normal 5-8 [facility] Comment on above: Performed By: #### 1 [id number] ####[facility] (DEFAULT)[address] [place] [address] 86437 UA Protein Negative Normal NEGATIVE [facility] Comment on above: Performed By: #### 1 [id number] ####[facility] (DEFAULT)[address] [place] [address] 25556 UA Spec Grav 1.020 Normal 1.001-1.035 [facility] Comment on above: Performed By: #### 1 [id number] ####[facility] (DEFAULT)[address] [place] [address] 79569 UA Urobilinogen 0.2 mg/dL Normal 0.2-1.0 [facility] Comment on above: Performed By: #### 1 [id number] ####[facility] (DEFAULT)[address] [place] [address] 62609 Urine Source Clean Catch [facility] Comment on above: Performed By: #### 1 [id number] ####[facility] (DEFAULT)[address] [place] [address] 91383 ED Clinical Summaryon 2022 ED Clinical Summary [facility] ? Urgent Care [address] [place] [address] Clinical Summary PERSON INFORMATION Name: BARBRA CLAROS Age: 27 Years Sex: FEMALE : 1995 MRN: Acct#: Visit Reason: UC - Cough; UC - Sinus Pain or Congestion; CONGESTION, NAUSEA, SINUS PRESSURE, HEADACHE Arrival: 06/04/2023 10:57:44 Discharge: 06/04/2023 12:05:00 LOS: 000 01:08 Check In: 06/04/2023 10:57:44 Checkout: 06/04/2023 12:05:00 Address: [address] [facility] [address] PCP: Provider, None PROVIDER INFORMATION Provider Role Assigned Unassigned Francia Nation VEHICLE TRIMMER Nurse 06/04/2023 11:00:21 Luis Alfredo Mitchell ED [...] with medication to treat cough. May use nanp-gcw-gifuvok cough and cold type medications, but make [...] verbalizes understanding of instructions given Comment: Normal [facility] ED Patient Summaryon 023 ED Patient Summary [facility] ? Urgent Care [address] [place] [address] PATIENT DISCHARGE INSTRUCTIONS Patient Information Name: BARBRA CLAROS Age: 27 Years Date of : 1995 Reason For Visit: UC - Cough; UC - Sinus Pain or Congestion; CONGESTION, NAUSEA, SINUS PRESSURE, HEADACHE Arrival Time: 06/04/2023 10:57:44 Primary Care Physician: Provider, None Attending Physician: Lui sAlfredo Mitchell Comment: Patient Education With: Address: When: [...] with medication to treat cough. May use zabp-lxj-shkvorh cough and cold type medications, but make [...] Medicines to relieve symptoms. These can include evvi-uyr-ovaggya medicine for pain and fever, medicines for cough or congestion, and medicines to relieve diarrhea. ? Antiviral medicines. These medicines are available only for certain types of viruses. Some viral illnesses can be prevented with vaccinations. A common example is the flu shot. Follow these instructions at home: Medicines ? Take zduz-kfe-woxqowh and prescript (more content not included)... Normal [facility] POCT Rapid CoV-2 (COVID-19) Antigen/ Flu A&Bon 06-04-2023 Influenza A POCT Negative Normal Negative [facility] Comment on above: Performed By: #### 6 [id number] ####[facility] (DEFAULT)[address] [place] [address] Influenza B POCT Negative Normal Negative [facility] Comment on above: Performed By: #### 8 [id number] ####[facility] (DEFAULT)[address] [place] [address] SARS-CoV-2 (COVID-19) RNA MARICEL+probe Ql (Unsp spec) Not detected Normal [facility] Comment on above: Performed By: #### 7 [id number] ####[facility] (DEFAULT)[address] [place] [address] Urgent Care Recordon 023 Urgent Care Record [facility] ? Urgent Care [address] [place] [address] PATIENT DISCHARGE INSTRUCTIONS Patient Information Name: BARBRA [...] diseases classified elsewhere (B97.89) UC - Cough ([id number]) UC - Sinus Pain or Congestion ([id number]) Viral respiratory illness (J98.8) If you received [...] with medication to treat cough. May use shmb-zpu-qkxlrch cough and cold type medications, but make [...] and treatment you received today in the [facility] were for an urgent problem and are not intended as complete care. It is important for you to follow up with a doctor, nurse practitioner, or physician?s cashier assistant for ongoing care. If your symptoms [...] so we can reach you if necessary. [facility] has provided you with a complete list of medications post discharge. Please inform your department editor/provider of your visit and for further instruction on these medications. Any specific questions regarding your chronic medications and dosages should be discussed with your primary care physician(s) and/or pharmacist. New Medications [facility], [address] [place] [address] [phone], [phone] benzonatate (Tessalon Perles 100 mg oral capsule) [...] Temperature Temporal: 36 (more content not included)... Normal [facility] Coding Summaryon 04-20-2023 [facility] VqlarbrvTCk8qTc+PGhlYWQ+P U5WWNLfO74vzYKhvR6cO5HDUZ lOSywgQVBQTElOSyIgbmFtZT1 kaXNjZXJu IC8+RY9wMBAgJvmwbRHrb8X3r RZ3Z29gaj0aRZagnUG7KGStNa Ngdtnbn0yeaVh7TZfoJikiBkW t UBWuvL41SGC5eA10Ug08xSBbw BVks5oqzEu1FdNyQNAiHQH5vU ecNQzeg6LvDHKzF34dhULpr7Z 6 KDZbwEunhEYdPiYgyKK1pH9hR Xcnhrqos7rsyqppVrf9ye28eN Kfs1J8vGO5I6OdhvM8COLdwED g OjtwcNMUlG6uxnapz8rehjhmD vHlFHHhUVj4OMa1BJOmyQaxOw ReVJ25BDJ4OMGyhkFkW2WtCHO s uKbeKsW1u3K6Bg6II6HBUoxaV 1VNTUFSWTwvdGQ+SV21vl25J5 WyCggeOxa5INLoONS1vGP6oN9 n ZXSvPZcoe9V5nSV1E2HquuRhu a1fe5rhPRNoHDuaW92hdCNlp5 W9GLHqiBD7VUMqqHkjPfEfaY7 3 Oyc+QZPoqPtsu0GaRiele5tuj 0kzlAj1VkutCLAprmQspZxpXM M5e8GkLh1iZZNqyQZ4tYG5jE7 i OkCfJhX3QFfhE077YaVfyDHvJ psjK21wJ9CgjMK+DIUgJfg9LD XvrJfvWE9aB9QvLJTcahxttEP m mUjwSN2sKAJhhjueHVRcgI8iY VZgE2r7NhSqNbX0PGlnR1WyAW JtwdeiSx76qJ2gQgHsObA4LTf u K9BvbbP1OATgdPXgRAlmPRG8J 29el8Q2VYVhEAAgJMJ0fSC1vG 1hbGlnbjogbGVmdDsgdmVydGl j QKthPRviO192NVFktZmrBkAdD GluZyBEYXRlOiAgMTEvMDIvMj AyMzwvdGQ+DDFjIAJ7tAclCWA n hQQtUHomEn6ncUgwjUniJJ5aQ SKkatylIUSgjI9jTTTmyYOkmK qfCA1tYQXpqnkqx819XsOdLIQ 0 LWRscKFsV4XwcH8eGgSjRZVcB KBqJ0HabZIuSQocO254ESmoNr J9UAIqjkFiC3PpNXGpiCspJiK 0 b1E5Fk5Hs1IljdokO5AhcHPyS pHqWyehOAt4A1WzJtsqgWF+PC 35HNQsIY48MCi6XFD4uTuoHMe i XEKlZ8ImmY2wTqVqHSJdLFVzJ yc+PHRhYmxlIHdpZHRoPScxMD IjGbRpqGoqWD3eCp2eQMAwKQW v gJqdfLOiHlDnh1jxNDYtNPraL D0lrLwnB8OsvLK5VGDvu4c4Pe 34P24kR8OteEU+YBTmaSM5mIR 0 tU7oNdLfAnD3ATthB537PdSwk LLfUqlrw6zih0oipBg4ZsX4SY JohlCtiUfbDVX8b9BqAe65O34 s IHdpZHRoPSIxNSUiIHZhbGlnb p2saZ9pIr5+WNHmpBA4wPE0kC 1aWxSqHdL4VYjiB110JrWoxZT v Hohko3woc9zlvKd0SjQzMTAkc wRsbQoaIIV5m4OnHf67D6AkfK nnm5EoOwn7eg86dTLtv7Z7aEF 9 J5WiRZHvhulcfIBmrMfdSY6lD HBrlzpxDLIuaG9sIKBvI1h3Eh BlSlV6YMkxO6ZjemV9JVQqbHX g ITWxeICMvV3ocohot9hnvdjlA gZsHHCwAMk3ACg0OJAbqFxcMx IgISQ6DrA9VPE3dQGitL7tsEt n ximrnQ5aOaj+ALZ7zVKumLDCU I3jQwtzhHW+CXJqXQN2wSinVP rqXZTljP6yPOHpX2r1BiLoVrE 1 RGfbW7BuecW1TGBkeUFrZQZds KRXmJ4temvai6qyucmiKvPyLC KdZRh6NLf9WWFozCuyHcOwJFC 0 UzP4OYB5kUJieF4vzOgxpjcdo G9wOyc+JrgpnRmzVYO0HIo4H6 XcYwd0JZDtdBscCC2xyWHoDHk u Wu9yzAwezYyyGL2oBYQbbhguu 091UoVhw3qlRXMprPFjAOecBU Q0N02pv6C6HRAdMTIsLXD1vRQ 4 pC0zsFvisryssAPtdSxrmxSij QspQBqgJFmiZ181JTGejWhrAx FaBMb1R1VwLil5FBZmsKttZR0 n oTGbZNzsVp5btHibjItrQG6nA MKbkqqro194GwQyt7wyHWNmnM TyYIpePYK9L74vx2E7CSFxRIC w OZJ1xVE8tW9tsHeadhwvcSHih XsmmmOhrNmnJPkwNSieI297SJ AfcPgrTuAjrFa1R9NlCbh0IZR z tMnoOC4hdOQkJMokGh5szOkfs XwbFT8yZAGsfplfu683IcDyd1 gmYHJvvKEvQJsyFBY1O13oi7U 6 DDYhJIVeTUU6rSH8fR4hlTuti jogbGVmdDsgdmVydGljYWwtYW saS953KBHfxZsrElUqvKarzaN g SOdrJMh0U9DkQlqcuQV+PC90Y FPmHI53rSPhvHIop0egaSl7Jd UvQWYbNZI8aQlwHBwal1ShZJL t H19jyYXjx0H9GZQpuXhgkKDdY aOpkEN4qG5eKTasydyve7kwyi ybUhdcx4krli49tZ21A40zBHi p WBNuHXNlIMSiIRJncMwree0gd G9wIi8+VREljZW7wJI1mB5cMX ZxQqP6PUdwQ670PaNekWSxYld j t5gme1jvlPo4GhX0GEEerlMnw DcxTNT6i0ZmVc89Z84bHFqjJG KcREHdGZWoEOHlgNbyio7etJ8 w Ii8+STFexAP1uXD2kQ0jFeDkI bM8EAtwP421DhRklRUoRaroX6 2yF4NdvHY+VMYtRxq2ONQnpXr s GI2skJOfJTagHe2rXCK9UpZxD xFrSAvbN2IhCRCgscxovrfeeN O1UXEzGODtqR62Zm0arJafSIG w mSOSdX4bppoyi0dhxvfzAjCfM ZFaNKe8LOn8RMHbgGsdWiTcME I6ZzD5ZIQ0uNKseR6uoGwjggd g mE2mX5CrWTRotdooGr77jQ0rW oTjMlN6KZezEwu+N6eDV85EXI ZGMTLCAJ7LSLLVLVpWCiofxPZ + MDDvIXK2rWajXNacVEAvaK9iT TPuD5i2DjHgSxF7RHtnD9GhMX QoywvcYu47xM6mJhMjHsS0BJv u O5RzjjT8FLRirNTkMGilHAE8I 97ca1H9IICeQVDnEYV7fXZ1pL 1hbGlnbjogbGVmdDsgdmVydGl j UYjsVNznV269EHSagLtdWxXzR fA9QlK9WZI1T6OjLxx7COBqxZ cwEP2cuDMdAOsuOu8whOovdEt g OA4rZXUwfxbqSJAonD5eVTHox FGbfQlrXT2yAKUugmsoe358Xa ErAXG9ZGHnjDUmI5CbnL7eEkK j PZYfAZJsC4NoxLNsXXmqW311P LhmMaB0UGImrnIiP5OoXSLxkG beGgC5u4U9Aw5uGxEXYIPxegj v dGQ+RNInXQW2vYxrDNjkVJIrg M1cCOStF6o2IaFpQrQ2RVdbV6 FgBEOqbtycVi09aX5kApJePhM 1 OLusT6RqocP9KCUvrSCpELrkC NT9Q36qq6S9AKXlQKIlKOT3bU P9kW4ldNrwccdmbJWhjQzmylH y fMgaSPzqUBvtV568UXHvnAbtL kZFTUFMRTwvdGQ+NFMmJBT3hY laHAdgSMDdqV3gKGFaD4a2WfC w ByS6MJnwQ9TgJRCzylfoTd50n G0oHnZnJdK8KPqxV9GadaN5MP QvpODrYYeoIEI5L87sg6M9QIT w HYSvBUF0qFB7iG3ooOotdsttd GVmdDsgdmVydGljYWwtYWxpZ2 55ALZqzLdySjTrZRMvFP2ylDy v dGQ+IO09eh58D8TfOkeoDby3S IGyUEG1bMO9cI9oNIDnIYzuo6 Z3fNI1U1LyjcEvxa2kf5iwYPZ z HXppX03hmFNzv4C4VSWmsDO6I GYjwPyjXdMkrW01Srn+PGNvbG ygc5GkGodmp2izs1sghNh9ZeS w HHKlvtBytRhyTZX6j6SrKr73G 29sIHdpZHRoPSIzMCUiIHZhbG aohv2jkP1fWw7+FPOqjNI8mLJ 0 jV3uCuGlZwB0YZgoS026GhZsm MQpRdxbe9qwx4yyoAo6TlHpYZ NexlNmrGduVZP6h0WxOe42V1R v sSvrh1BkQre2yx52dLJwh4B8l IE6D0MhEVGvcqsijWRybXznZH 1oKYYigrxnUEOztC7pXTUkH3y 0 QaFfGtD1ONynF2PasmL1YQKer IZdRKKipKKRfJ5hfwpvp5mrar jfLmQzWFMfDCo7RAc4DQJlsSf u BmNlRPN7QlI0OHH5hDGrjS8td UpeltccmF7vMqe+OZv7u6njlB ZkNV4lcCR4AV56MO67qWMjx1D 5 fVE7Z5JhXGYtdcfbefuxeJY7W UPcVZMizZ23Zs0bgXfjAl5cSD LhUUV8ZKUyaCClK5MyuD5pPoV j ORIzIYRrG9HvqOYnIEmpV604A NtkNwX5TCXtdiRnW0ZbPJRwkV ccUpU2y2W5Ix4IVM69BB54IK6 8 sAPxm3L7hEH2T1CjQWNvbodos bqjrZE6VGUbQAHsxH78Fm6mnF kmJl7wUXPtBSU1CRCrvKUbQ4Q v yA2iFjElDEQjRXBbS8GunZGuS TehS219DYfnEpS8UZMuyzPnC5 MxNBCcgXzbIbE9p8K1Pa7UUl3 6 NH83FO98mZImg6K9lFT6T1OqW FWyskoojhsqrXS4LBLnENHujM 47Kr7roMtjZa0mLRPuOFF3XMO p dQPoL1RbiK2aDjXkCTSsUFSwQ 6WrgOArDDhdI725KZrlIbT5IZ LuyjPzL2BgLISpfZktMfZ8u5E 7 Zt2SFXlufaz2W2JfVbtmwKF+P W51QYWsRY21hYPlsQQyh6xykH m9CwHwIPPrYNV3oPfrEOdex5Y k ZXI (more content not included)... Normal [facility] .Auto Diff 04-16-2023 Auto [place] % 8 % Normal 06-30 [facility] Comment on above: Performed By: #### 3 [id number], 9243204, 5713709, [id number], [id number] ####[facility] (DEFAULT)[address] [place] [address] Baso Abs# 0.0 x10 Normal 0.0-0.2 [facility] Comment on above: Performed By: #### 3 [id number], 6405529, 5931286, 1021410334, 11013132 ####[facility] (DEFAULT)[address] [place] [address] Basophils/100 WBC (Bld) 0.4 % Normal 0.2-2.0 [facility] Comment on above: Performed By: #### 3 14785157, 1707813, 7848774, [id number], 57412316 ####[facility] (DEFAULT)[address] [place] [address]006 Eos Abs# 0.4 x10 Normal 0.0-0.4 [facility] Comment on above: Performed By: #### 3 [id number], 1267114, 6543869, 9481383358, 59286180 ####[facility] (DEFAULT)[address] [place] [address] Eosinophils/100 WBC (Bld) 4.9 % High 0.9-4.0 [facility] Comment on above: Performed By: #### 3 96768232, 1812485, 4969249, [id number], 73572553 ####[facility] (DEFAULT)[address] [place] [address]55 Lymph Abs# 3.3 x10 High 1.3-2.9 [facility] Comment on above: Performed By: #### 3 51108890, 2104255, 1508738, [id number], 09682159 ####[facility] (DEFAULT)[address] [place] [address] Lymphocytes/100 WBC (Bld) 43 % Normal 14-48 [facility] Comment on above: Performed By: #### 3 79545550, 7466463, 2090464, 0706288114, 63635489 ####[facility] (DEFAULT)[address] [place] [address] [place] Abs# 0.6 x10 Normal 0.0-0.8 [facility] Comment on above: Performed By: #### 3 64707016, 1091914, 1769176, 3214646919, 85033642 ####[facility] (DEFAULT)[address] [place] [address] Neut Abs# 3.4 x10 Normal 1.5-9.2 [facility] Comment on above: Performed By: #### 3 16775232, 3194942, 3782180, 3178957968, 55971249 ####[facility] (DEFAULT)[address] [place] [address] Neutrophils/100 WBC (Bld) 44 % Normal 44-88 [facility] Comment on above: Performed By: #### 3 44427543, 5174819, 0888897, 6495292820, 55719879 ####[facility] (DEFAULT)[address] [place] [address] CBC w/ Auto Diffon 3 Erythrocyte distribution width (RBC) [Ratio] 17.9 % High 11.5-15.0 [facility] Comment on above: Performed By: #### 3 89945732, 6423606, 4480078, 5185056128, 66324661 ####[facility] (DEFAULT)[address] [place] [address] Hematocrit (Bld) [Volume fraction] 32.9 % Low 33.7-40.4 [facility] Comment on above: Performed By: #### 3 60651801, 6921895, 9458779, 5221187100, 66157772 ####[facility] (DEFAULT)[address] [place] [address] Hemoglobin (Bld) [Mass/Vol] 10.6 g/dL Low 11.3-15.9 [facility] Comment on above: Performed By: #### 3 35898055, 9594364, 4080471, 5059561381, 46879540 ####[facility] (DEFAULT)[address] [place] [address] Man Diff? Auto Invalid Interpretation Code [facility] Comment on above: Performed By: #### 3 [id number], 8776850, 5805295, [id number], 13270039 ####[facility] (DEFAULT)[address] [place] [address] MCH (RBC) [Entitic mass] 26 pg Normal 24-34 [facility] Comment on above: Performed By: #### 3 89587267, 1287781, 1698588, 3842642398, 55691893 ####[facility] (DEFAULT)[address] [place] [address] MCHC (RBC) [Mass/Vol] 32 g/dL Normal 26-37 [facility] Comment on above: Performed By: #### 3 36940233, 8351386, 4448591, 7103318922, 60647690 ####[facility] (DEFAULT)[address] [place] [address] MCV (RBC) [Entitic vol] 81 fL Normal 81-100 [facility] Comment on above: Performed By: #### 3 89237212, 5666359, 7460117, 0617443733, 44579196 ####[facility] (DEFAULT)[address] [place] [address] Platelet 275 x10 Normal 138-427 [facility] Comment on above: Performed By: #### 3 81683921, 6278213, 8159513, 1182373704, 02844503 ####[facility] (DEFAULT)[address] [place] [address] Platelet mean volume (Bld) [Entitic vol] 7.8 fL Normal 6.3-10.2 [facility] Comment on above: Performed By: #### 3 74167269, 4355036, 5567241, 9982415914, 16840763 ####[facility] (DEFAULT)[address] [place] [address] RBC 4.05 x10 Normal 3.70-5.30 [facility] Comment on above: Performed By: #### 3 07044954, 2359125, 4042987, 3383269304, 69512091 ####[facility] (DEFAULT)[address] [place] [address] WBC 7.7 x10 Normal 3.5-10.5 [facility] Comment on above: Performed By: #### 3 40486335, 9148615, 6975530, 8863979789, 52884152 ####[facility] (DEFAULT)[address] [place] [address] CMP Standardon 04-16-2023 Breakpoint Chem Normal [facility] Comment on above: Performed By: #### 3 27402507, 8186030, 1538967, 9411511162, 40928991 ####[facility] (DEFAULT)[address] [place] [address] eGFR Non AA >60 Invalid Interpretation Code [facility] Comment on above: Performed By: #### 3 41983251, 4101930, 2372992, 2026374289, 51242352 ####[facility] (DEFAULT)[address] [place] [address] eGFR AA >60 Invalid Interpretation Code [facility] Comment on above: Performed By: #### 3 07930776, 6858202, 5112776, 5052607406, 72142509 ####[facility] (DEFAULT)[address] [place] [address] Albumin/Globulin [Mass ratio] 1.2 {ratio} Low 1.4-2.6 [facility] Comment on above: Performed By: #### 3 21021723, 6288942, 0623425, 1616541109, 43969949 ####[facility] (DEFAULT)[address] [place] [address] Anion gap [Moles/Vol] 7.6 mmol/L Normal 5.0-19.0 [facility] Comment on above: Performed By: #### 3 72797552, 2844136, 9169456, 4822846404, 63025160 ####[facility] (DEFAULT)[address] [place] [address] Globulin (S) [Mass/Vol] 3.2 g/dL Normal 1.5-4.3 [facility] Comment on above: Performed By: #### 3 54715378, 2968175, 6529188, 4333085438, 05324749 ####[facility] (DEFAULT)[address] [place] [address] Osmolality 275 mOsm/L Invalid Interpretation Code [facility] Comment on above: Performed By: #### 3 62142502, 1135621, 0278261, 7448369840, 71894252 ####[facility] (DEFAULT)[address] [place] [address] Urea nitrogen/Creatinine [Mass ratio] 20.3 mg/mg High 4.6-16.2 [facility] Comment on above: Performed By: #### 3 83891288, 5141942, 1378647, 8949519673, 06302310 ####[facility] (DEFAULT)[address] [place] [address] Albumin [Mass/Vol] 3.9 g/dL Normal 3.5-5.0 [facility] Comment on above: Performed By: #### 3 87392193, 3437794, 1276072, 2422509772, 83703779 ####[facility] (DEFAULT)[address] [place] [address] Alk Phos 44 IU/L Normal 32-91 [facility] Comment on above: Performed By: #### 3 21944904, 4290033, 3565874, 5707547676, 07586928 ####[facility] (DEFAULT)[address] [place] [address] ALT [Catalytic activity/Vol] 39.0 U/L Normal 14.0-54.0 [facility] Comment on above: Performed By: #### 3 09104464, 7357746, 0415252, 8260833308, 29913243 ####[facility] (DEFAULT)[address] [place] [address] AST [Catalytic activity/Vol] 28 U/L Normal 15-41 [facility] Comment on above: Performed By: #### 3 03871647, 5885553, 8358034, 5243701048, 11754377 ####[facility] (DEFAULT)[address] [place] [address] Bili Total 0.4 mg/dL Normal 0.3-1.2 [facility] Comment on above: Performed By: #### 3 55327973, 2126179, 1262308, 5580385960, 29391538 ####[facility] (DEFAULT)[address] [place] [address] Calcium [Mass/Vol] 8.6 mg/dL Low 8.9-10.3 [facility] Comment on above: Performed By: #### 3 96661338, 4718623, 4465591, 2300749259, 09432192 ####[facility] (DEFAULT)[address] [place] [address]40[address] Chloride [Moles/Vol] 107 mmol/L Normal 101-111 [facility] Comment on above: Performed By: #### 3 71784626, 1101932, 5417033, 3860959796, 15914671 ####[facility] (DEFAULT)[address] [place] [address] CO2 [Moles/Vol] 27 mmol/L Normal 21-32 [facility] Comment on above: Performed By: #### 3 92576909, 3869011, 8575088, 1180096421, 32404679 ####[facility] (DEFAULT)[address] [place] [address]35 Creatinine [Mass/Vol] 0.64 mg/dL Normal 0.60-1.30 [facility] Comment on above: Performed By: #### 3 88033586, 9046442, 3174073, 4270922391, 71177930 ####[facility] (DEFAULT)[address] [place] [address]887 Glucose [Mass/Vol] 93.0 mg/dL Normal 74.0-118.0 [facility] Comment on above: Performed By: #### 3 80336109, 9936291, 3832028, 5404630279, 95081017 ####[facility] (DEFAULT)[address] [place] [address] Potassium [Moles/Vol] 3.6 mmol/L Normal 3.6-5.1 [facility] Comment on above: Performed By: #### 3 59709195, 5690637, 2440967, 4181633758, 13542210 ####[facility] (DEFAULT)[address] [place] [address]288 Protein [Mass/Vol] 7.1 g/dL Normal 6.5-8.1 [facility] Comment on above: Performed By: #### 3 36618648, 8453283, 5282243, 9249000418, 66871211 ####[facility] (DEFAULT)[address] [place] [address]64 Sodium [Moles/Vol] 138.0 mmol/L Normal 136.0-144.0 [facility] Comment on above: Performed By: #### 3 67255910, 7247395, 5653498, 6283937058, 02327584 ####[facility] (DEFAULT)[address] [place] [address]77 Urea nitrogen [Mass/Vol] 13 mg/dL Normal 8-26 [facility] Comment on above: Performed By: #### 3 39583529, 2750092, 6924405, 3215575517, 51159771 ####[facility] (DEFAULT)[address] [place] [address]011 ED Clinical Summaryon 2022 ED Clinical Summary [facility] Emergency Department [address] [place] [address] 11877 ED Clinical Summary PERSON INFORMATION Name: BARBRA CLAROS Age: 27 Years Sex: FEMALE : 1995 MRN: Acct#: Visit Reason: Vaginal bleeding; Vaginal bleeding; VAGINAL BLEEDING Arrival: 04/15/2023 23:05:13 Discharge: 04/16/2023 03:19:00 LOS: 000 04:14 Check In: 04/15/2023 23:05:13 Checkout:04/16/2023 03:19:00 Address: [address] [facility] [address] PCP: Provider, None PROVIDER INFORMATION Provider Role Assigned Unassigned Doreen Lowe VEHICLE TRIMMER Nurse 04/15/2023 23:48:50 Luis Alfredo Shepherd DO [...] that she would call Dr. 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 She [...] Impression and Plan Diagnosis Dysfunctional uterine bleeding (NYZ61-QQ N93.8, Discharge, Medical) Plan Condition: Improved. Disposition: Discharged. Prescriptions Patient was given the following educational materials: Menorrhagia, Txvs-ub-Cups. Follow up with: ; Michael Gurrola In 2 days 04/18/2023 home ibuprofen for cramps Provera: one tab daily to reduce the bleeding continue your iron pills Call Dr Gurrola on Monday, for a recheck apt w (more content not included)... Normal [facility] ED Note - Physicianon 2022 ED Note - Physician Patient: NELDA CLAROS Age: 27 years Sex: FEMALE : [...] that she would call Dr. 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 She [...] Impression and Plan Diagnosis Dysfunctional uterine bleeding (DIG21-ET N93.8, Discharge, Medical) Plan Condition: Improved. Disposition: Discharged. Prescriptions Patient was given the following educational materials: Menorrhagia, Uzux-lv-Kvdo. Follow up with: ; Michael Gurrola In 2 days 04/18/2023 home ibuprofen for cramps Provera: one tab daily to reduce the bleeding continue your iron pills Call Dr Gurrola on Monday, for a recheck apt we have provided a copy of your recent labs to take to the doctor you are welcomed to return, especially if fever, or the bleeding increases. Mark SHEPHERD< ER PHYSICIAN< Chucky Hoang.. Counseled: Patient, Regarding diagnosis, Regarding diagnostic results, Regarding treatment plan, Regarding prescription, Patient indicated understanding of instructions. [Electronically Signed on: 04/16/2023 03:19 EDT] Luis Alfredo Shepherd DO [Verified on: 04/16/2023 03:19 EDT] Luis Alfredo Shepherd DO Normal [facility] ED Patient Summaryon 023 ED Patient Summary [facility] - Emergency Department [address] [place], [place] [id number] PATIENT DISCHARGE INSTRUCTIONS Patient Information Name: BARBRA CLAROS Age: 27 Years Date of : 1995 Reason For Visit: Vaginal bleeding; Vaginal bleeding; VAGINAL BLEEDING Arrival Time: 04/15/2023 23:05:13 Primary Care Physician: Provider, None Attending Physician: Luis Alfredo Shepherd DO Comment: Visit Diagnosis: Diagnoses This Visit Dysfunctional uterine bleeding (N93.8) Vaginal bleeding ([id number]) Vaginal bleeding ([id number]) The Pharmacy at [facility] is open Monday through Monday from 9A [...] alcohol and/or drug addiction problems; contact the [facility] 09/01 Crisis Hotline -Text 5KGVL to 235469. If you received any narcotics, sedation, or [...] sign any legal documents With: Address: When: Michael Gurrola [address] [facility] [place] [address] Business (1) In 2 days 04/18/2023 Comments: home ibuprofen for cramps Provera: one tab daily to reduce the bleeding continue your iron pills Call Dr Gurrola on Monday, for a recheck apt we have provided a copy of your recent labs to take to the doctor you are welcomed to return, especially if fever, or the bleeding increases. Mark SHEPHERD< ER PHYSICIAN< Chucky Hoang. Medication Information: The exam and treatment you received today in the [facility] Emergency Department were for an urgent problem and are not intended as complete care. It is important for you to follow up with a doctor, nurse practitioner, or physician?s cashier assistant for ongoing care. If your symptoms [...] so we can reach you if necessary. [facility] Emergency Department has provided you with a complete list of medications post discharge. Please inform your department editor/provider of your visit and for further instruction on these medications. Any specific questions regarding your chronic medications and dosages should be discussed with your primary care physician(s) and/or pharmacist. New Medications [facility], [address] [place] [address] [phone], [phone] medroxyPROGESTERone (medroxyPROGESTERone 5 mg oral tablet) 1 [...] This Visit (more content not included)... Normal [facility] PT/PTTon 10-29-2023 INR Coag (PPP) [Relative time] 0.99 {INR} Normal 0.91-1.11 [facility] Comment on above: Performed By: #### 3 [id number], 6959587, 2344880, [id number], 24493530 ####[facility] (DEFAULT)[address] [place] [address] PT 10.3 second(s) Normal 9.7-11.8 [facility] Comment on above: Performed By: #### 3 [id number], 2101494, 7550941, [id number], 18298374 ####[facility] (DEFAULT)[address] [place] [address] PTT 33 second(s) Normal 25-35 [facility] Comment on above: Performed By: #### 3 [id number], [id number] ####[facility] (DEFAULT)[address] [place] [address] Test Serum 1on - Preg Serum Internal Control [place] [facility] Comment on above: Performed By: #### 3 [id number] ####[facility] (DEFAULT)[address] [place] [address] Test Serum Qual Negative [facility] Comment on above: Performed By: #### 3 [id number], [id number], [id number] ####[facility] (DEFAULT)[address] [place] [address] Basophils Auto (Bld) [#/Vol] Ordered By: Jonathan Monahan on 02-27-2023 Basophils (Bld) [#/Vol] 0.0 10*3/uL 0.0-0.2 [facility] Basophils/100 WBC Auto (Bld) Ordered By: Jonathan Monahan on 02-27-2023 Basophils/100 WBC (Bld) 0.4 % . [facility] Eosinophils Auto (Bld) [#/Vo l]Ordered By: Jonathan Monahan on 02-27-2023 Eosinophils (Bld) [#/Vol] 0.1 10*3/uL 0.0-0.45 [facility] Eosinophils/100 WBC Auto (Bl d)Ordered By: Jonathan Monahan on 02-27-2023 Eosinophils/100 WBC (Bld) 0.7 % . [facility] Erythrocyte distribution wid th Auto (RBC) [Ratio]Ordered By: Jonathan Monahan on 02-27-2023 Erythrocyte distribution width (RBC) [Ratio] 14.8 % 11.9-15.3 [facility] Hematocrit Auto (Bld) [Volum e fraction]Ordered By: Jonathan Monahan on 02-27-2023 Hematocrit (Bld) [Volume fraction] 27.5 % 34.0-46.4 [facility] Hemoglobin [Mass/volume] in BloodOrdered By: Jonathan Monahan on 02-27-2023 Hemoglobin (Bld) [Mass/Vol] 8.9 g/dL 11.8-15.4 [facility] Hepatitis B virus surface Ag [Presence] in Serum or Plasma by ImmunoassayOrdered By: Jonathan Monahan on 02-27-2023 HBV surface Ag IA Ql Negative Negative [facility] Comment on above: Performed at: [address] Director: Alexander Jean Baptiste PhD, Phone: [phone] Leukocytes [#/volume] correc arminda for nucleated erythrocytes in Blood by Automated counOrdered By: Jonathan Monahan on 02-27-2023 WBC corrected for nucl RBC Auto (Bld) [#/Vol] 9.6 10*3/uL 3.8-11.6 [facility] Lymphocytes Auto (Bld) [#/Vo l]Ordered By: Jonathan Monahan on 02-27-2023 Lymphocytes (Bld) [#/Vol] 2.6 10*3/uL 1.00-4.8 [facility] Lymphocytes/100 WBC Auto (Bl d)Ordered By: Jonathan Monahan on 02-27-2023 Lymphocytes/100 WBC (Bld) 26.9 % . [facility] MCH Auto (RBC) [Entitic mass ]Ordered By: Jonathan Monahan on 02-27-2023 MCH (RBC) [Entitic mass] 25.6 pg 24.7-34.3 [facility] MCHC Auto (RBC) [Mass/Vol]Or dered By: Jonathan Monahan on 02-27-2023 MCHC (RBC) [Mass/Vol] 32.4 g/dL 32.0-35.0 [facility] MCV Auto (RBC) [Entitic vol] Ordered By: Jonathan Monahan on 02-27-2023 MCV (RBC) [Entitic vol] 79.0 fL 80-100 [facility] Monocytes Auto (Bld) [#/Vol] Ordered By: Jonathan Monahan on 02-27-2023 Monocytes (Bld) [#/Vol] 0.7 10*3/uL 0.0-0.8 [facility] Monocytes/100 WBC Auto (Bld) Ordered By: Jonathan Monahan on 02-27-2023 Monocytes/100 WBC (Bld) 7.1 % . [facility] Neutrophils Auto (Bld) [#/Vo l]Ordered By: Jonathan Monahan on 02-27-2023 Neutrophils (Bld) [#/Vol] 6.2 10*3/uL 1.8-7.7 [facility] Neutrophils/100 WBC Auto (Bl d)Ordered By: Jonathan Monahan on 02-27-2023 Neutrophils/100 WBC (Bld) 64.9 % . [facility] No Panel InformationOrdered By: Jonathan Monahan on 02-27-2023 Rubella IgG Antibody 2.22 index Immune >0.99 [facility] Comment on above: Non-immune <0.90 Equ ivocal 0.90 - 0.99 Immune >0.99Performed at: - [facility] [id number] Director: Alexander Jean Baptiste PhD, Phone: [phone] Nucleated erythrocytes [Pres ence] in Blood by Automated countOrdered By: Jonathan Monahan on 02-27-2023 Nucleated RBC Auto Ql (Bld) 0.2 /100{WBC} 0-0.5 [facility] Platelet mean volume Auto (B ld) [Entitic vol]Ordered By: Jonathan Monahan on 02-27-2023 Platelet mean volume (Bld) [Entitic vol] 7.5 fL 6.3-10.7 [facility] [facility] Auto (Bld) [#/Vol] Ordered By: Jonathan Monahan on 02-27-2023 Platelets (Bld) [#/Vol] 266 10*3/uL 150-450 [facility] RBC Auto (Bld) [#/Vol]Ordere d By: Jonathan Monahan on 02-27-2023 RBC (Bld) [#/Vol] 3.48 10*6/uL 3.60-5.00 [facility] WBC Auto (Bld) [#/Vol]Ordere d By: Jonathan Monahan on 02-27-2023 WBC (Bld) [#/Vol] 9.6 10*3/uL 3.8-11.6 [facility] Amphetamine Screen Ql (U)Ord ered By: Jonathan Monahan on 02-26-2023 Amphetamines Ql (U) Negative Negative [facility] Automated erythrocytes count in urine sediment (number/area)Ordered By: Jonathan Monahan on 02-26-2023 RBC Auto (Urine sed) [#/Area] 0-1 [HPF] 0-4 [facility] Automated leukocytes count i n urine sediment (number/area)Ordered By: Jonathan Monahan on 02-26-2023 WBC Auto (Urine sed) [#/Area] 20-49 [HPF] 0-4 [facility] Barbiturates [Presence] in U rine by Screen methodOrdered By: Jonathan Monahan on 02-26-2023 Barbiturates Screen Ql (U) Negative Negative [facility] Benzodiazepines Screen Ql (U )Ordered By: Jonathan Monahan on 02-26-2023 Benzodiazepines Ql (U) Negative Negative [facility] Benzoylecgonine [Presence] i n Urine by Screen methodOrdered By: Jonathan Monahan on 02-26-2023 Benzoylecgonine Screen Ql (U) Negative Negative [facility] Bilirubin Test strip Ql (U)O rdered By: Jonathan Monahan on 02-26-2023 Bilirubin Ql (U) Negative Negative [facility] Color Auto (U)Ordered By: Hola Monahan on 02-26-2023 Color (U) Yellow Yellow [facility] Ketones Auto test strip (U) [Mass/Vol]Ordered By: Jonathan Monahan on 02-26-2023 Ketones (U) [Mass/Vol] Trace Negative [facility] Laboratory - UrinalysisOrder ed By: Jonathan Monahan on 02-26-2023 Hyaline casts LM Ql (Urine sed) 0-8 [LPF] 0-8 [facility] Nitrite Test strip Ql (U)Ord ered By: Jonathan Monahan on 02-26-2023 Nitrite Ql (U) Negative Negative [facility] Opiates [Presence] in Urine by Screen methodOrdered By: Jonathan Monahan on 02-26-2023 Opiates Screen Ql (U) Negative Negative [facility] Phencyclidine Screen Ql (U)O rdered By: Jonathan Monahan on 02-26-2023 Phencyclidine Ql (U) Negative Negative [facility] Comment on above: These are unconfirme d results and should not be used for legal purposes. Drug Cut-Off Concentration: AMPH 1000 ng/mL FIONA 200 ng/mL KIMMY 200 ng/mL COCM 300 ng/mL OP 300 ng/mL PCP 25 ng/mL Protein Auto test strip (U) [Mass/Vol]Ordered By: Jonathan Monahan on 02-26-2023 Protein (U) [Mass/Vol] Negative Negative [facility] Reagin Ab [Presence] in Seru m by RPROrdered By: Jonathan Monahan on 02-26-2023 Reagin Ab RPR Ql (S) Non-Reactive Non Reactive [facility] Comment on above: Performed at: [place] [id number] Director: Alexander Jean Baptiste PhD, Phone: [phone] Specific gravity Auto test s trip (U) [Rel density]Ordered By: Jonathan Monahan on 02-26-2023 Specific gravity (U) [Rel density] 1.016 1.001-1.030 [facility] Squamous epithelial cells de tection in urine sediment by light microscopyOrdered By: Jonathan Monahan on 02-26-2023 Epithelial cells.squamous LM Ql (Urine sed) 3-4 [HPF] 0-2 [facility] Urine bacteria detection by automated methodOrdered By: Jonathan Monahan on 02-26-2023 Bacteria Auto Ql (U) 1+ None Seen [facility] Urine clarity by refractomet ry automatedOrdered By: Jonathan Monahan on 02-26-2023 Clarity Refractometry automated (U) Cloudy Clear [facility] Urine culture routineOrdered By: Jonathan Monahan on 02-26-2023 Bacteria identified Cx Nom (U) 2 Days [facility] Urine glucose measurement by automated test strip (mass/volume)Ordered By: Jonathan Monahan on 02-26-2023 Glucose Auto test strip (U) [Mass/Vol] Normal mg/dL Normal [facility] Urine hemoglobin detection b y automated test stripOrdered By: Jonathan Monahan on 02-26-2023 Hemoglobin Auto test strip Ql (U) Negative Negative [facility] Urine leukocyte esterase det ection by automated test stripOrdered By: Jonathan Monahan on 02-26-2023 Leukocyte esterase Auto test strip Ql (U) 3+ Negative [facility] Urobilinogen Auto test strip (U) [Mass/Vol]Ordered By: Jonathan Monahan on 02-26-2023 Urobilinogen (U) [Mass/Vol] Normal mg/dL Normal [facility] pH Auto test strip (U)Ordere d By: Jonathan Monahan on 02-26-2023 pH (U) 6.5 [pH] 5.0-9.0 [facility] Amphetamine Screen Ql (U)Ord ered By: CARY Beltre on 02-25-2023 Amphetamines Ql (U) Negative Negative [facility] Barbiturates [Presence] in U rine by Screen methodOrdered By: CARY Beltre on 02-25-2023 Barbiturates Screen Ql (U) Negative Negative [facility] Benzodiazepines Screen Ql (U )Ordered By: CARY Beltre on 02-25-2023 Benzodiazepines Ql (U) Negative Negative [facility] Benzoylecgonine [Presence] i n Urine by Screen methodOrdered By: CARY Beltre on 02-25-2023 Benzoylecgonine Screen Ql (U) Negative Negative [facility] Bilirubin Test strip Ql (U)O rdered By: CARY Beltre on 02-25-2023 Bilirubin Ql (U) Negative Negative [facility] Color Auto (U)Ordered By: MD NATAN Beltre on 02-25-2023 Color (U) Yellow Yellow [facility] Ketones Auto test strip (U) [Mass/Vol]Ordered By: CARY Beltre on 02-25-2023 Ketones (U) [Mass/Vol] Negative Negative [facility] Nitrite Test strip Ql (U)Ord ered By: CARY Beltre on 02-25-2023 Nitrite Ql (U) Negative Negative [facility] Opiates [Presence] in Urine by Screen methodOrdered By: CARY Beltre on 02-25-2023 Opiates Screen Ql (U) Negative Negative [facility] Phencyclidine Screen Ql (U)O rdered By: CARY Beltre on 02-25-2023 Phencyclidine Ql (U) Negative Negative [facility] Comment on above: These are unconfirme d results and should not be used for legal purposes. Drug Cut-Off Concentration: AMPH 1000 ng/mL FIONA 200 ng/mL KIMMY 200 ng/mL COCM 300 ng/mL OP 300 ng/mL PCP 25 ng/mL Protein Auto test strip (U) [Mass/Vol]Ordered By: CARY Beltre on 02-25-2023 Protein (U) [Mass/Vol] Negative Negative [facility] Specific gravity Auto test s trip (U) [Rel density]Ordered By: CARY Beltre on 02-25-2023 Specific gravity (U) [Rel density] 1.015 1.001-1.030 [facility] Urine clarity by refractomet ry automatedOrdered By: CARY Beltre on 02-25-2023 Clarity Refractometry automated (U) Clear Clear [facility] Urine glucose measurement by automated test strip (mass/volume)Ordered By: ARDEN Beltre on 02-25-2023 Glucose Auto test strip (U) [Mass/Vol] Normal mg/dL Normal [facility] Urine hemoglobin detection b y automated test stripOrdered By: CARY Beltre on 02-25-2023 Hemoglobin Auto test strip Ql (U) Negative Negative [facility] Urine leukocyte esterase det ection by automated test stripOrdered By: CARY Beltre on 02-25-2023 Leukocyte esterase Auto test strip Ql (U) Negative Negative [facility] Urobilinogen Auto test strip (U) [Mass/Vol]Ordered By: CARY Beltre on 02-25-2023 Urobilinogen (U) [Mass/Vol] Normal mg/dL Normal [facility] pH Auto test strip (U)Ordere d By: CARY Beltre on 02-25-2023 pH (U) 6.5 [pH] 5.0-9.0 [facility] Amphetamine Screen Ql (U)Ord ered By: MICHAEL GURROLA on 02-22-2023 Amphetamines Ql (U) Negative Negative [facility] Automated erythrocytes count in urine sediment (number/area)Ordered By: MICHAEL GURROLA on 02-22-2023 RBC Auto (Urine sed) [#/Area] 0-1 [HPF] 0-4 [facility] Automated leukocytes count i n urine sediment (number/area)Ordered By: MICHAEL GURROLA on 02-22-2023 WBC Auto (Urine sed) [#/Area] 5-9 [HPF] 0-4 [facility] Barbiturates [Presence] in U rine by Screen methodOrdered By: MICHAEL GURROLA on 02-22-2023 Barbiturates Screen Ql (U) Negative Negative [facility] Benzodiazepines Screen Ql (U )Ordered By: MICHAEL GURROLA on 02-22-2023 Benzodiazepines Ql (U) Negative Negative [facility] Benzoylecgonine [Presence] i n Urine by Screen methodOrdered By: MICHAEL GURROLA on 02-22-2023 Benzoylecgonine Screen Ql (U) Negative Negative [facility] Bilirubin Test strip Ql (U)O rdered By: MICHAEL GURROLA on 02-22-2023 Bilirubin Ql (U) Negative Negative [facility] Color Auto (U)Ordered By: SAMIR GURROLA on 02-22-2023 Color (U) Yellow Yellow [facility] Ketones Auto test strip (U) [Mass/Vol]Ordered By: MICHAEL GURROLA on 02-22-2023 Ketones (U) [Mass/Vol] Negative Negative [facility] Laboratory - UrinalysisOrder ed By: MICHAEL GURROLA on 02-22-2023 Hyaline casts LM Ql (Urine sed) 0-8 [LPF] 0-8 [facility] Nitrite Test strip Ql (U)Ord ered By: MICHAEL GURROLA on 02-22-2023 Nitrite Ql (U) Negative Negative [facility] No Panel InformationOrdered By: MICHAEL GURROLA on 02-22-2023 Membranes Rupture (PAMG-1) Negative Negative [facility] Opiates [Presence] in Urine by Screen methodOrdered By: MICHAEL GURROLA on 02-22-2023 Opiates Screen Ql (U) Negative Negative [facility] Phencyclidine Screen Ql (U)O rdered By: MICHAEL GURROLA on 02-22-2023 Phencyclidine Ql (U) Negative Negative [facility] Comment on above: These are unconfirme d results and should not be used for legal purposes. Drug Cut-Off Concentration: AMPH 1000 ng/mL FIONA 200 ng/mL KIMMY 200 ng/mL COCM 300 ng/mL OP 300 ng/mL PCP 25 ng/mL Protein Auto test strip (U) [Mass/Vol]Ordered By: MICHAEL GURROLA on 02-22-2023 Protein (U) [Mass/Vol] Negative Negative [facility] Specific gravity Auto test s trip (U) [Rel density]Ordered By: MICHAEL GURROLA on 02-22-2023 Specific gravity (U) [Rel density] 1.013 1.001-1.030 [facility] Squamous epithelial cells de tection in urine sediment by light microscopyOrdered By: MICHAEL GURROLA on 02-22-2023 Epithelial cells.squamous LM Ql (Urine sed) 3-4 [HPF] 0-2 [facility] Urine bacteria detection by automated methodOrdered By: MICHAEL GURROLA on 02-22-2023 Bacteria Auto Ql (U) None seen None Seen [facility] Urine clarity by refractomet ry automatedOrdered By: MICHAEL GURROLA on 02-22-2023 Clarity Refractometry automated (U) Clear Clear [facility] Urine culture routineOrdered By: MICHAEL GURROLA on 02-22-2023 Bacteria identified Cx Nom (U) [facility] Urine glucose measurement by automated test strip (mass/volume)Ordered By: MICHAEL GURROLA on 02-22-2023 Glucose Auto test strip (U) [Mass/Vol] 100 mg/dL Normal [facility] Urine hemoglobin detection b y automated test stripOrdered By: MICHAEL GURROLA on 02-22-2023 Hemoglobin Auto test strip Ql (U) Negative Negative [facility] Urine leukocyte esterase det ection by automated test stripOrdered By: MICHAEL GURROLA on 02-22-2023 Leukocyte esterase Auto test strip Ql (U) 2+ Negative [facility] Urobilinogen Auto test strip (U) [Mass/Vol]Ordered By: MICHAEL GURROLA on 02-22-2023 Urobilinogen (U) [Mass/Vol] Normal mg/dL Normal [facility] pH Auto test strip (U)Ordere d By: MICHAEL GURROLA on 02-22-2023 pH (U) 7.0 [pH] 5.0-9.0 [facility] Amphetamine Screen Ql (U)Ord ered By: JUANY CHOI on 02-19-2023 Amphetamines Ql (U) Negative Negative [facility] Barbiturates [Presence] in U rine by Screen methodOrdered By: JUANY CHOI on 02-19-2023 Barbiturates Screen Ql (U) Negative Negative [facility] Benzodiazepines Screen Ql (U )Ordered By: JUANY CHOI on 02-19-2023 Benzodiazepines Ql (U) Negative Negative [facility] Benzoylecgonine [Presence] i n Urine by Screen methodOrdered By: JUANY CHOI on 02-19-2023 Benzoylecgonine Screen Ql (U) Negative Negative [facility] Bilirubin Test strip Ql (U)O rdered By: JUANY CHOI on 02-19-2023 Bilirubin Ql (U) Negative Negative [facility] Color Auto (U)Ordered By: LEIDA CHOI on 02-19-2023 Color (U) Yellow Yellow [facility] Ketones Auto test strip (U) [Mass/Vol]Ordered By: JUANY CHOI on 02-19-2023 Ketones (U) [Mass/Vol] Negative Negative [facility] Nitrite Test strip Ql (U)Ord ered By: JUANY CHOI on 02-19-2023 Nitrite Ql (U) Negative Negative [facility] No Panel InformationOrdered By: JUANY CHOI on 02-19-2023 Membranes Rupture (PAMG-1) Negative Negative [facility] Opiates [Presence] in Urine by Screen methodOrdered By: JUANY CHOI on 02-19-2023 Opiates Screen Ql (U) Negative Negative [facility] Phencyclidine Screen Ql (U)O rdered By: JUANY CHOI on 02-19-2023 Phencyclidine Ql (U) Negative Negative [facility] Comment on above: These are unconfirme d results and should not be used for legal purposes. Drug Cut-Off Concentration: AMPH 1000 ng/mL FIONA 200 ng/mL KIMMY 200 ng/mL COCM 300 ng/mL OP 300 ng/mL PCP 25 ng/mL Protein Auto test strip (U) [Mass/Vol]Ordered By: JUANY CHOI on 02-19-2023 Protein (U) [Mass/Vol] Negative Negative [facility] Specific gravity Auto test s trip (U) [Rel density]Ordered By: JUANY CHOI on 02-19-2023 Specific gravity (U) [Rel density] 1.004 1.001-1.030 [facility] Urine clarity by refractomet ry automatedOrdered By: JUANY CHOI on 02-19-2023 Clarity Refractometry automated (U) Clear Clear [facility] Urine glucose measurement by automated test strip (mass/volume)Ordered By: JUANY CHOI on 02-19-2023 Glucose Auto test strip (U) [Mass/Vol] Normal mg/dL Normal [facility] Urine hemoglobin detection b y automated test stripOrdered By: JUANY CHOI on 02-19-2023 Hemoglobin Auto test strip Ql (U) Negative Negative [facility] Urine leukocyte esterase det ection by automated test stripOrdered By: JUANY CHOI on 02-19-2023 Leukocyte esterase Auto test strip Ql (U) Negative Negative [facility] Urobilinogen Auto test strip (U) [Mass/Vol]Ordered By: JUANY CHOI on 02-19-2023 Urobilinogen (U) [Mass/Vol] Normal mg/dL Normal [facility] pH Auto test strip (U)Ordere d By: JUANY CHOI on 02-19-2023 pH (U) 6.5 [pH] 5.0-9.0 [facility] Amphetamine Screen Ql (U)Ord ered By: CARY Beltre on 02-17-2023 Amphetamines Ql (U) Negative Negative [facility] Barbiturates [Presence] in U rine by Screen methodOrdered By: CARY Beltre on 02-17-2023 Barbiturates Screen Ql (U) Negative Negative [facility] Benzodiazepines Screen Ql (U )Ordered By: CARY Beltre on 02-17-2023 Benzodiazepines Ql (U) Negative Negative [facility] Benzoylecgonine [Presence] i n Urine by Screen methodOrdered By: CARY Beltre on 02-17-2023 Benzoylecgonine Screen Ql (U) Negative Negative [facility] Bilirubin Test strip Ql (U)O rdered By: CARY Beltre on 02-17-2023 Bilirubin Ql (U) Negative Negative [facility] Color Auto (U)Ordered By: MD NATAN Beltre on 02-17-2023 Color (U) Yellow Yellow [facility] Ketones Auto test strip (U) [Mass/Vol]Ordered By: CARY Beltre on 02-17-2023 Ketones (U) [Mass/Vol] Negative Negative [facility] Nitrite Test strip Ql (U)Ord ered By: CARY Beltre on 02-17-2023 Nitrite Ql (U) Negative Negative [facility] Opiates [Presence] in Urine by Screen methodOrdered By: CARY Beltre on 02-17-2023 Opiates Screen Ql (U) Negative Negative [facility] Phencyclidine Screen Ql (U)O rdered By: CARY Beltre on 02-17-2023 Phencyclidine Ql (U) Negative Negative [facility] Comment on above: These are unconfirme d results and should not be used for legal purposes. Drug Cut-Off Concentration: AMPH 1000 ng/mL FIONA 200 ng/mL KIMMY 200 ng/mL COCM 300 ng/mL OP 300 ng/mL PCP 25 ng/mL Protein Auto test strip (U) [Mass/Vol]Ordered By: CARY Beltre on 02-17-2023 Protein (U) [Mass/Vol] Negative Negative [facility] Specific gravity Auto test s trip (U) [Rel density]Ordered By: CARY Beltre on 02-17-2023 Specific gravity (U) [Rel density] 1.003 1.001-1.030 [facility] Urine clarity by refractomet ry automatedOrdered By: CARY Beltre on 02-17-2023 Clarity Refractometry automated (U) Clear Clear [facility] Urine glucose measurement by automated test strip (mass/volume)Ordered By: ARDEN Beltre on 02-17-2023 Glucose Auto test strip (U) [Mass/Vol] Normal mg/dL Normal [facility] Urine hemoglobin detection b y automated test stripOrdered By: CARY Beltre on 02-17-2023 Hemoglobin Auto test strip Ql (U) Negative Negative [facility] Urine leukocyte esterase det ection by automated test stripOrdered By: CARY Beltre on 02-17-2023 Leukocyte esterase Auto test strip Ql (U) Negative Negative [facility] Urobilinogen Auto test strip (U) [Mass/Vol]Ordered By: CARY Beltre on 02-17-2023 Urobilinogen (U) [Mass/Vol] Normal mg/dL Normal [facility] pH Auto test strip (U)Ordere d By: CARY Beltre on 02-17-2023 pH (U) 6.5 [pH] 5.0-9.0 [facility] Group B Streptococcus cultur eOrdered By: MICHAEL GURROLA on 02-16-2023 S. agalactiae Org specific cx Ql (Unsp spec) [facility] S. agalactiae Org specific cx Ql (Unsp spec) [facility] Amphetamine Screen Ql (U)Ord ered By: Jonathan Monahan on 02-07-2023 Amphetamines Ql (U) Negative Negative [facility] Barbiturates [Presence] in U rine by Screen methodOrdered By: Jonathan Monahan on 02-07-2023 Barbiturates Screen Ql (U) Negative Negative [facility] Benzodiazepines Screen Ql (U )Ordered By: Jonathan Monahan on 02-07-2023 Benzodiazepines Ql (U) Negative Negative [facility] Benzoylecgonine [Presence] i n Urine by Screen methodOrdered By: Jonathan Monahan on 02-07-2023 Benzoylecgonine Screen Ql (U) Negative Negative [facility] Bilirubin Test strip Ql (U)O rdered By: Jonathan Monahan on 02-07-2023 Bilirubin Ql (U) Negative Negative [facility] Color Auto (U)Ordered By: Hola Monahan on 02-07-2023 Color (U) Yellow Yellow [facility] Ketones Auto test strip (U) [Mass/Vol]Ordered By: Jonathan Monahan on 02-07-2023 Ketones (U) [Mass/Vol] Trace Negative [facility] Nitrite Test strip Ql (U)Ord ered By: Jonathan Monahan on 02-07-2023 Nitrite Ql (U) Negative Negative [facility] Opiates [Presence] in Urine by Screen methodOrdered By: Jonathan Monahan on 02-07-2023 Opiates Screen Ql (U) Negative Negative [facility] Phencyclidine Screen Ql (U)O rdered By: Jonathan Monahan on 02-07-2023 Phencyclidine Ql (U) Negative Negative [facility] Comment on above: These are unconfirme d results and should not be used for legal purposes. Drug Cut-Off Concentration: AMPH 1000 ng/mL FIONA 200 ng/mL KIMMY 200 ng/mL COCM 300 ng/mL OP 300 ng/mL PCP 25 ng/mL Protein Auto test strip (U) [Mass/Vol]Ordered By: Jonathan Monahan on 02-07-2023 Protein (U) [Mass/Vol] Negative Negative [facility] Specific gravity Auto test s trip (U) [Rel density]Ordered By: Jonathan Monahan on 02-07-2023 Specific gravity (U) [Rel density] 1.006 1.001-1.030 [facility] Urine clarity by refractomet ry automatedOrdered By: Jonathan Monahan on 02-07-2023 Clarity Refractometry automated (U) Clear Clear [facility] Urine glucose measurement by automated test strip (mass/volume)Ordered By: Jonathan Monahan on 02-07-2023 Glucose Auto test strip (U) [Mass/Vol] Normal mg/dL Normal [facility] Urine hemoglobin detection b y automated test stripOrdered By: Jonathan Monahan on 02-07-2023 Hemoglobin Auto test strip Ql (U) Negative Negative [facility] Urine leukocyte esterase det ection by automated test stripOrdered By: Jonathan Monahan on 02-07-2023 Leukocyte esterase Auto test strip Ql (U) Negative Negative [facility] Urobilinogen Auto test strip (U) [Mass/Vol]Ordered By: Jonathan Monahan on 02-07-2023 Urobilinogen (U) [Mass/Vol] Normal mg/dL Normal [facility] pH Auto test strip (U)Ordere d By: Jonathan Monahan on 02-07-2023 pH (U) 6.0 [pH] 5.0-9.0 [facility] Amphetamine Screen Ql (U)Ord ered By: JUANY CHOI on 01-26-2023 Amphetamines Ql (U) Negative [facility] Autom[facility] erythrocytes count in urine sediment (number/area)Ordered By: JUANY CHOI on 01-26-2023 RBC Auto (Urine sed) [#/Area] 0-1 [HPF] 0-4 [facility] Automated leukocytes count i n urine sediment (number/area)Ordered By: JUANY CHOI on 01-26-2023 WBC Auto (Urine sed) [#/Area] 0-1 [HPF] 0-4 [facility] Barbiturates [Presence] in U rine by Screen methodOrdered By: JUANY CHOI on 01-26-2023 Barbiturates Screen Ql (U) Negative Negative [facility] Benzodiazepines Screen Ql (U )Ordered By: JUANY CHOI on 01-26-2023 Benzodiazepines Ql (U) Negative Negative [facility] Benzoylecgonine [Presence] i n Urine by Screen methodOrdered By: JUANY CHOI on 01-26-2023 Benzoylecgonine Screen Ql (U) Negative Negative [facility] Bilirubin Test strip Ql (U)O rdered By: JUANY CHOI on 01-26-2023 Bilirubin Ql (U) Negative Negative [facility] Color Auto (U)Ordered By: LEIDA CHOI on 01-26-2023 Color (U) Yellow Yellow [facility] Ketones Auto test strip (U) [Mass/Vol]Ordered By: JUANY CHOI on 01-26-2023 Ketones (U) [Mass/Vol] Negative Negative [facility] Laboratory - UrinalysisOrder ed By: JUANY CHOI on 01-26-2023 Hyaline casts LM Ql (Urine sed) 0-8 [LPF] 0-8 [facility] Nitrite Test strip Ql (U)Ord ered By: JUANY CHOI on 01-26-2023 Nitrite Ql (U) Negative Negative [facility] No Panel InformationOrdered By: JUANY CHOI on 01-26-2023 Membranes Rupture (PAMG-1) Negative Negative [facility] Opiates [Presence] in Urine by Screen methodOrdered By: JUANY CHOI on 01-26-2023 Opiates Screen Ql (U) Negative Negative [facility] Phencyclidine Screen Ql (U)O rdered By: JUANY CHOI on 01-26-2023 Phencyclidine Ql (U) Negative Negative [facility] Comment on above: These are unconfirme d results and should not be used for legal purposes. Drug Cut-Off Concentration: AMPH 1000 ng/mL FIONA 200 ng/mL KIMMY 200 ng/mL COCM 300 ng/mL OP 300 ng/mL PCP 25 ng/mL Protein Auto test strip (U) [Mass/Vol]Ordered By: JUANY CHOI on 01-26-2023 Protein (U) [Mass/Vol] Trace mg/dL Negative [facility] Specific gravity Auto test s trip (U) [Rel density]Ordered By: JUANY CHOI on 01-26-2023 Specific gravity (U) [Rel density] 1.021 1.001-1.030 [facility] Squamous epithelial cells de tection in urine sediment by light microscopyOrdered By: JUANY CHOI on 01-26-2023 Epithelial cells.squamous LM Ql (Urine sed) 1-2 [HPF] 0-2 [facility] Urine bacteria detection by automated methodOrdered By: JUANY CHOI on 01-26-2023 Bacteria Auto Ql (U) None seen None Seen [facility] Urine clarity by refractomet ry automatedOrdered By: JUANY CHOI on 01-26-2023 Clarity Refractometry automated (U) Cloudy Clear [facility] Urine glucose measurement by automated test strip (mass/volume)Ordered By: JUANY CHOI on 01-26-2023 Glucose Auto test strip (U) [Mass/Vol] Normal mg/dL Normal [facility] Urine hemoglobin detection b y automated test stripOrdered By: JUANY CHOI on 01-26-2023 Hemoglobin Auto test strip Ql (U) Negative Negative [facility] Urine leukocyte esterase det ection by automated test stripOrdered By: JUANY CHOI on 01-26-2023 Leukocyte esterase Auto test strip Ql (U) Negative Negative [facility] Urobilinogen Auto test strip (U) [Mass/Vol]Ordered By: JUANY CHOI on 01-26-2023 Urobilinogen (U) [Mass/Vol] Normal mg/dL Normal [facility] pH Auto test strip (U)Ordere d By: JUANY CHOI on 01-26-2023 pH (U) 6.0 [pH] 5.0-9.0 [facility] Amphetamine Screen Ql (U)Ord ered By: Jonathan Monahan on 01-24-2023 Amphetamines Ql (U) Negative Negative [facility] Automated erythrocytes count in urine sediment (number/area)Ordered By: Jonathan Monahan on 01-24-2023 RBC Auto (Urine sed) [#/Area] 0-1 [HPF] 0-4 [facility] Automated leukocytes count i n urine sediment (number/area)Ordered By: Jonathan Monahan on 01-24-2023 WBC Auto (Urine sed) [#/Area] 0-1 [HPF] 0-4 [facility] Barbiturates [Presence] in U rine by Screen methodOrdered By: Jonathan Monahan on 01-24-2023 Barbiturates Screen Ql (U) Negative Negative [facility] Benzodiazepines Screen Ql (U )Ordered By: Jonathan Monahan on 01-24-2023 Benzodiazepines Ql (U) Negative Negative [facility] Benzoylecgonine [Presence] i n Urine by Screen methodOrdered By: Jonathan Monahan on 01-24-2023 Benzoylecgonine Screen Ql (U) Negative Negative [facility] Bilirubin Test strip Ql (U)O rdered By: Jonathan Monahan on 01-24-2023 Bilirubin Ql (U) Negative Negative [facility] Color Auto (U)Ordered By: Hola Monahan on 01-24-2023 Color (U) Yellow Yellow [facility] Ketones Auto test strip (U) [Mass/Vol]Ordered By: Jonathan Monahan on 01-24-2023 Ketones (U) [Mass/Vol] Trace Negative [facility] Laboratory - UrinalysisOrder ed By: Jonathan Monahan on 01-24-2023 Hyaline casts LM Ql (Urine sed) 0-8 [LPF] 0-8 [facility] Nitrite Test strip Ql (U)Ord ered By: Jonathan Monahan on 01-24-2023 Nitrite Ql (U) Negative Negative [facility] No Panel InformationOrdered By: Jonathan Monahan on 01-24-2023 Membranes Rupture (PAMG-1) Negative Negative [facility] Opiates [Presence] in Urine by Screen methodOrdered By: Jonathan Monahan on 01-24-2023 Opiates Screen Ql (U) Negative Negative [facility] Phencyclidine Screen Ql (U)O rdered By: Jonathan Monahan on 01-24-2023 Phencyclidine Ql (U) Negative Negative [facility] Comment on above: These are unconfirme d results and should not be used for legal purposes. Drug Cut-Off Concentration: AMPH 1000 ng/mL FIONA 200 ng/mL KIMMY 200 ng/mL COCM 300 ng/mL OP 300 ng/mL PCP 25 ng/mL Protein Auto test strip (U) [Mass/Vol]Ordered By: Jonathan Monahan on 01-24-2023 Protein (U) [Mass/Vol] Trace mg/dL Negative [facility] Specific gravity Auto test s trip (U) [Rel density]Ordered By: Jonathan Monahan on 01-24-2023 Specific gravity (U) [Rel density] 1.013 1.001-1.030 [facility] Squamous epithelial cells de tection in urine sediment by light microscopyOrdered By: Jonathan Monahan on 01-24-2023 Epithelial cells.squamous LM Ql (Urine sed) 0-1 [HPF] 0-2 [facility] Urine bacteria detection by automated methodOrdered By: Jonathan Monahan on 01-24-2023 Bacteria Auto Ql (U) None seen None Seen [facility] Urine clarity by refractomet ry automatedOrdered By: Jonathan Monahan on 01-24-2023 Clarity Refractometry automated (U) Clear Clear [facility] Urine glucose measurement by automated test strip (mass/volume)Ordered By: Jonathan Monahan on 01-24-2023 Glucose Auto test strip (U) [Mass/Vol] Normal mg/dL Normal [facility] Urine hemoglobin detection b y automated test stripOrdered By: Jonathan Monahan on 01-24-2023 Hemoglobin Auto test strip Ql (U) Negative Negative [facility] Urine leukocyte esterase det ection by automated test stripOrdered By: Jonathan Monahan on 01-24-2023 Leukocyte esterase Auto test strip Ql (U) Negative Negative [facility] Urobilinogen Auto test strip (U) [Mass/Vol]Ordered By: Jonathan Monahan on 01-24-2023 Urobilinogen (U) [Mass/Vol] Normal mg/dL Normal [facility] pH Auto test strip (U)Ordere d By: Jonathan Monahan on 01-24-2023 pH (U) 6.0 [pH] 5.0-9.0 [facility] Coding Summaryon 01-23-2023 Coding Summary HTMLBase 64 SodpaksoLDf5pQg+PGhlYWQ+P W2CFPTgU47faLEyxH4bU3EDVM lOSywgQVBQTElOSyIgbmFtZT1 kaXNjZXJu IC8+VF1zYUBdZzcnuMXib3G7x IW1Q88jhn7kZWymfVV2MMNiTv Uxdrbez2gawZc6XVkpWfvtHoW t AVGbrY34OSP3pE77Pj77zDWay SGeo5aftKs5SyRsQODoNDR6dP cxDYprb0PsIMPsT38geHMgz0K 6 FPKolFjioGRxJuGbcIL0aY1lL Udsctvcd3enfghmSfz9gv99fX Vcx9F7tHG7K7ZnnoR7GDSacOX g KvojbSCDyO9ljaswg4iuhhroL jItLASmDZv3ZSg8HFOvgWujTb YgUP07DKM4VXWvtaHvP3CuRMS s qBopDkB2r6A0Bs7TW9FOZftrQ 1VNTUFSWTwvdGQ+YJ80zv16Y5 ShJiibFrl2HDXuYSR9oDR1mJ3 n BUAiWSbgt1A5eGE5Q8DwevAlc t8ow6mcOIZjGNjyA22gcARdk8 R7UJCnmGL8ANXbsTgaIfCibR5 3 Oyc+KYDlaVdlw6VtCcfmp2hdn 0kbfRd5CwnfFHStyhVayXccWT X9f8ZqTn8cIWBzpCA0mKW9dV9 i FwWhUnP3QOzlK246AiIkqEKuJ clqW01tG4NzvIU+JBCvOgk0JR FuiBnnHF4kH1OcWJQkaevnwTU m kNhiFP4pPEYsuxvkPPOrrK9iD FSjM3g8FuBgMiI2NNnmH3XyGZ IzgkehYr73mS4tPcMjMwG0GYc u N2PmgdD1JCVblRQwJZclKGH7N 68ne6N6FKBjRDShAMW8rFJ7vL 1hbGlnbjogbGVmdDsgdmVydGl j DHqkQWpeR909DCEbtXcxRnJqI GluZyBEYXRlOiAgMDgvMDcvMj AyMzwvdGQ+QCRkGJJ5cJnjSPT n sUCtSDjcFh1bhOlybYfzQS5mW RIoqbdtWNZlpP8lJPKvvPUwqC hwYC2dWCRcsxknz817UtPiEXU 0 UMQhhWHiJ8PabK6iQpTgTYGkB GBjI1ChyIJdVNnyV957WEjsQm R5INTfhcWgI0LdBCHftOqyUrA 0 m6R8Et5Zq2VtpbwpZ6AyzRYaK xPtDgdePBi3D7HiJsujdBT+PC 22JLHzTH57FFd1XNK4qNfwAZn i QTEoG3YlpP7yZbOzHXStKBSbC yc+PHRhYmxlIHdpZHRoPScxMD OmMrCqqEajNB7vUc0iPDIcWAP v gHttiCWfQfXiq2qpQHPlOEitR G1ndUdyG6ClcGM9BYAyt0e9Yp 23X85sC4GgzJN+BMCnfYQ7lVK 0 mG4xQuQrUjK4UJeqS546NsEaq OQkMhmyt8ztb0xchSj7AmM9WW JtosSjvNnjRTH1u5KsVa63O52 s IHdpZHRoPSIxNSUiIHZhbGlnb b8tvG2mGv8+NRXnpKD7fBV5kF 7eDzWzBbY3LVqhR569KmJnuSM v Vbsls7xor5kfhPg5KuExSEQyv bZiyNmdEBJ8m9WpXf29V5PwgU oyu7AkVyu5xc47zLDvh7L5aWS 9 H2LaZKQemlgjvPUuxBluSO1uR CElqhlhGJQrtQ6jWARpJ5r5Ra XxRzR1IAiyG7AghgJ4BUUseKY g GVTjqXEBaV1kzmovc9snkhhmN gTlZSIgVFx5VYc8XPXxrNofMy WrDGQ1EzJ9LUG5yLUphI9tpVu n ivsgpS5iNlv+UQH6wAYawSCMJ P3bDinraRK+CINzCGV0bGdqKU vbCHZpwL6cIZTgW3i9NhKvJlR 1 SIgzQ0NehdC2KTHyfKNcMWNce OEYvE1zdiven8kcjubyEmGlUW RpKIm2PUr6QFWaaGxgDwQwVLA 0 ZdF6IHJ3cOTusD7liOlhwnvtj G9wOyc+FhlyvQzzXZG3XEb8P5 XiRrr0CGKjuHjhPG7ebXPaAYb u La1ceNyavWwnSJ9rCMTsyaevn 898NrZcg5ttBYMvvJCmUBgbPA G2Q02bw0V5UEOjZBWiFPX2lHP 4 wC8diAkdbchqqAEcfDowrnXku ZjwNDlkZHrvR472XTBvuLkfMy MqVWr6X6YzAok7MLItjZtiSX2 n gVBzNPapJg8fpMayeJktVQ4eA COqhzbbi667LqVbg6etZIDoiY PpMEblCZM2R67it4T3YZJgGZM w UDQ3jKC4mG9ihVfakifstEJui UxfhlQrzRspPQqhNHtwM078NK BmeZzhGvRjtRo2Y4UaKsm8NKW z fYxjNU8pvWKaUJqnSa0lgAerm LohWV2eVKTicagpm673YpIwi3 jtHGXfcUPxXZycOVE8E86sc8C 6 UOBgOSOuPRF3pRY2qG6xoVior jogbGVmdDsgdmVydGljYWwtYW gmG331JRAgyFxvFtTsiTnockM g GOeoILx6U9CfNjylkKN+PC90Y SCcPS21iCDsjOJwa0pawHy4Yw DeWRUbYTT1jCtxXHvkr2UlMOW t Y67lcAXch5K2VSDvgPkjyUXuC kHhiMV6kV6kUVsaziuze6kkxf tfPuwzi6erzb83fL86K56vLQn p ZDLvUKCbKYVaKJNcrEstpy7gp G9wIi8+WALaaOM9xYZ8kJ2zPM HmOrQ2QUshA623UrKpiIFaIjr j g6kpm8qedAq7FaU8JCZyagUme FwfWWP5s7GiRc48O09lPZcpEU EoZXZlRBVaJMMmqThyzq5fkE2 w Ii8+HZXgpWL0aNE9tG6pKkWvD eE4SOhwD806BtXhsWJkRfugB4 0oO0MjzIB+SCYrPtd4WJTorLh s RD2ppZRkBDboRn5zPRS1AsVaA kSxNVfkI3GqTMWexvrjlhgtrX F6GLOjYWSflW46Gx0mgOlyKOK w cRUGpL9bprszd5tpsarvPxLfX HYkTDz1LFb2KYJvgEpzBpAbNX Q8GuQ9PSM6nKDbjV2vzYinyfc g cA9pD7HlZZWjtuiaAe70rU5yH tAoQgB2ADvuIne+B6gLM58UHO HIZKQPIB6ZLUDPIEbEDacvwAE + DXAiGWI8uVoxGQfxBAVcfM1lQ FWgZ9f3LlXaWmS2ZKdjU8ChDN MpiirsNa17hI0kMiXoYzD1LYo u Q3GkdjS8VTQwoAWkMMxsMYF9H 53vr2R4KZEdNNUmRLQ9vNO6dY 1hbGlnbjogbGVmdDsgdmVydGl j EBtbLNfhW060ZMZizNdoRhEnZ aR6FpK4MYP4D0EcEyc8KLWuiI akEV9rrUZvKGwxJb8qpRiyvGu g FR7wOMUiuqsaMVZowQ0sBLSpn UZisHdlMY8mKRJsgnpvd714Uh MvEBF0ECZdeXWcC2QmtH2eMcP j VGAeEYQwH5VlqWMhQOpiN965B MdfYzT8BKVirkOtE8TnBLHmrW tdNyA2d1W2Sd7qYoYEKIZfdla v dGQ+XAWsBPV9oKikTCduMRMnr U0vAESvN7t9AbXcEmE1WFszN2 MrZMYdbhvtQb51cU7zPkUvPvK 1 AZajQ7ZrdrM8EWJtxBIyMLzpE PS3I97gd3D5GFIaTYHjNXW6uZ K1nM2bwNzvusaauHEmmXyqnpR y kTaaIVcgIAmrF375DWWoeBcrR kZFTUFMRTwvdGQ+XHUvKFL2vG ueWDveKWPgeK3fKIQoC0x8EsM w MnT4REcqW0OpOXGgxjflZd17n S8hZqYjNgU4BFbjA1QvgvV9AU MoqWDoYUkhJNH4X21mg9Y6GFU w NJGwEQN9cIU0dG4jrQkitqfen GVmdDsgdmVydGljYWwtYWxpZ2 95ZXMeqBbzMq2MPS91NL33H6Y y PjwvdGFibGU+PHRhYmxlIHdpZ XMpPQmmZVQqSvXqcLoyJJ6bTy 3bYKJpJDNzmDvnsQSiZvSlq9h s DTGmEBpzKA9ixVdaL7KcaMU0L OEkx5f3Lb81Y21yU9FytGZ+PG QmnTI8qMJ9mW0mCcFrJdN9XNp p A196KvSocUGwJfrtl6wzp1kqr Gp5OfQkTUEpxzUfrPgpHKV0m8 LbUs35C82vGVozYZKwFBSyOOK i TASeoSvhzw7uaQ2qLb3+PGNvb UL3yAM2uK4vPxUyHlF4BMbiT8 11QtFnbKGyKmohN89cX0UmkOU + UUPwRja6BDCeyNhrOU2blGJcZ LfdVk1xYJO4RrZkPkYvUFyxY5 IjUDJvxxmkkghuiGU4OEEyXNG w cF20Pq1iaNlwJd7zZNVpLXK6M ODukVDqJ8TpxF2aLnDhQHIqCU IwE4XzkGMcDQxoY056DQceLcV 7 GORsfcBxD9HnLPCpsXgrLgD0y 7G1Ht7OtYnuyQGuOH9rOaFqTZ x3I1YyNhd7CAPgyFyfLC6rcND k BJmkYy9irMmlwOqtBT5iTTIdb kswk999HcHzw8qnGPGcgNIuES odHGL3T84ow4S0WYVdIYAsDNA 7 iKG4xA2bmAtqmxtgpNUyvBlde kMvrOgcMAdqFIgpQ953YQDmbE tcRiHABpl1Z0GiQqi0AGYmfVd s GQ7urRTvAAztCb1vzYipiYteF W5fZJAjkqxrx361LgUju1yxBO SluAXeTKctPZU9O09jv6J4SMC w ZTLjLFZ1tGV1nO2gvUkfseiij GVmdDsgdmVydGljYWwtYWxpZ2 53ZJBysXcfIm8CKjf3S0FlNay 0 YORwkZavJU2tqLSwXHydXm4ed TlfyGrxBQ2qCUBtcelsf537Su Spa0wpDTYxfFCsXHdiBCN1Z18 s y6I5VPKaAQEbEGK1oTB5mD2vk GlnbjogbGVmdDsgdmVydGljYW rhQOxrC268ZYAnwKxzRhZjgLN y OjwvdGQ+VC90ks94E8XaOyqdL oc2PSZoRZV4dED6jV1bKGDqYG kip5O8uMV1R3NhvqLfkc6rf1h s YXB (more content not included)... [facility] Coding Summaryon 01-19-2023 Coding Summary HTMLBase 64 AquxmyatBPx4wMw+PGhlYWQ+P H5JCZAsE45yrIQexV9kW9VNGC lOSywgQVBQTElOSyIgbmFtZT1 kaXNjZXJu IC8+FG8cYCQcQnwwmXPxo3N3g LJ5Z43suw4vAUygbOA9GJLbNl Vnkdiym9usuFv6SCswIjocYhL t RJCqwT78HCT3mB82Qy06aNQwa BSsw5jrlBt0PbBsBLUpSCQ8qI xzSJqmm6EkINWoZ38jjQFbf4P 6 YVXygDjumUKdVtTdyLW4bR4lY Iqtiqhno9stycwhGda8pt17eI Tru8D2aSE1Z9ZjwkT9HBWisWO g KmcrfIRSnP8mganvg9viulmiD uVgMKKyDOd3RZx0BVSmyYdmBh AvBN16WEN7UJPcdhBgZ8KzPPJ s eQypMuD0w0U4Kf4ZG3TBOyiqV 1VNTUFSWTwvdGQ+UY94jr35R7 ZvYuhgMae5CULmRMK1oJM2rK6 n TBGaQYbmi8B9sTW7X5QgooHde a4tq3oiISIzICdiX50fuKNmz3 S4EFWhhBN2LNAivRyxJfSzrG7 3 Oyc+OAEmyDwka8FsNwtpi4hef 7gpoRo5TntaOGCdizBydEmkQB P3k6HnTm8bUQUvnQX0eHC1sQ6 i OsHxCsX2EErzD705YdUnqYYnU nuoS33nS3KqzXO+ICJrSqv2FM PpxDtxXK6mI0TdIRYcjuexvBI m lOsfGQ1zKAVnzqjjHCAoyT8kL AMsX6z3HkSbUqO8LKdqP8HrNP UfrwzqUt49hQ9mSfCkSsS2AZg u T9RgngW4XSLbdOWuKYodUYZ4C 73dc4O5OUFyBOPeGVP6tOZ3wH 1hbGlnbjogbGVmdDsgdmVydGl j QWoyCBqiW484ZBDeoWkkPkFnT GluZyBEYXRlOiAgMDgvMDMvMj AyMzwvdGQ+SWPmARN3mXoqWCO n xZZrPXrxXw7fdFvopQbaZF9iS LKdyvgjGYVgoX9lVVPzsZEagQ rmJY5jTEOsbqpuk414HpJnQUY 0 JMMorYBeM7OjrC6kKgNkSMOjI ZQaF2PxxJQpGKhjL766FYeaUw N2MIFccdGwO2DvVEXskFcwLkV 0 x7X5Us4Ta7AsunhnM0ChbSMqY gApBwqvZWl1M6KnIpkniMJ+PC 24RSVcRI69VPu3DPJ8xRuaZAc i BDQlJ8SjgE3aXdWeWTVuCRZbY yc+PHRhYmxlIHdpZHRoPScxMD WiNpAvkKxtNO4qSv6zOTLsUIU v xVkaqJYfOdGwf3siWKYtNAseC T9spVemH9CfrRI0BHRdz3x9Hi 33O54nB8RusLI+NPCuxHR6jPN 0 jG2pPaSeMdK6IJfkN553KiDgn EQsLsrme3rfl9olvWf1RtS7TF EoklVheIxaWWK8v0AcMs93S30 s IHdpZHRoPSIxNSUiIHZhbGlnb y9chN5fGd8+UBXyiRB8wCY4kZ 2oZoMvJeG2CCpzM305WlLjfVQ v Acodo2cmm3edrPd5XzUgREXsx cRfeZniWEB7f3HuWx81D5IwuC fjn8TrLkk6db31hABfy4G4bVI 9 V6AeKZKfwyjtcMWitRabBE7zD KTopyznMGOagZ1sFSNtN6m6Qa FbUuO2VLsfW6CwxqZ1UFOvzKB g MHMldDZGcM6ajpyqp2dnmxybM dMoEDLxZFq3BMu0KVAuxAwdUm JpAVX1GsB5WXZ7zEXyvA2loOt n lwwriT3kGht+QGO4pBTiwKZWB E4jHpfgbRA+UYKuFJM1uNovNY rzQEMotZ8tKGLoH0o6VtXnJoZ 1 DFthX3NwngQ4IPOuzVUbWAVsc LKVsN3pdpdbu7aatvjzZaUtZC MpYUh1BLv3LYRvhNdpGhBiOUD 0 SvZ4UEG0dDYpoT7aaAfpimjhd G9wOyc+ArogxUfrEGC8JCo4G7 MqZvr4XEYnbWswGB1ffGDuNXo u Kt5gvHcjtMikMC8oVXBfgjyti 777OoKuj2fxTHDhwNQdBBbfGW J4M37dr9O5XMArMKGoVAZ9hVU 4 oL4siXspmgfjoPFtrYigleVhy PdcGMxcUCruK790ATZbwFdsSu EvRMv8S7SkSkk7OVCzfIasLX4 n eSKcZEhpKw8bbJjsaFxbBO8nV ZTwnhoyd568ZkKge5gdNDPvtL MjMEnnDXK0O11vt8A0OHVkJNB w NYN6uOP8zT4ygBqdgafvlOAir QfsznNeiCjqMPdfGAgtF686ZS MnsOmbYuYztDy0F0YpEsf1UJQ z tBeoIQ1ycTBsAMupDz4bdDvim YcpHA2bFVJnmqkua274ZeJvf3 gdNLMobLHyVPuqLJI5H12rw4N 6 UJOpKEOyKXQ2uSW4xL4njQakj jogbGVmdDsgdmVydGljYWwtYW nrV450QLHenFfqXnXbcKptrzQ g PBffBOb6L0YdCryzvRJ+PC90Y SQiZN12oXNvlYDxy4ilvBm8Pu JsUVVeETH9yXmtCJncd8WmTIU t D55krTRdd7P5WOHmwMyemVBcK fUdjLO6mZ8aBYqvwigxx0ilop wkLgdwx8trfs64sQ76G81eJXd p TGEfRHNhWFYfFXWcgMduwr9ce G9wIi8+RSSylYG1eJF9lH2tVG PhJkS0VJazS562JeJtkBSdPrw j a2wkw0haeGt9CgW9MIXqkkJjc AnuQOM9n7VtDe80E79cHQoaTN PxNHIfTLUbBXBjvXwbuw5ezH2 w Ii8+BNAddED9oPW6uP2kPaAwW uF6KDdfA536AyNblBMoVdibH4 4sC7EhwST+PHHyNwr1QZKmhFi s XP2ldPAeNAfjDw6lVVH3RwHlO aTfEMvzY9EwFFJcgkrluuhepF T6EEFvJXWurN95Sf0evSilTQB w gCKBgM2zvatdy0lwoyuqAoNfN CEnBZf1NWg2PYHhpJbcSxIqYU W3RiC2IEH4gAHtaW8yyKbafbb g lM7kB6SmSLNplhvpTq50rZ2hX lFiBtW2WXyoQya+D9tKU04NFR YBOPZDOU0KWISVTWeFZamzuZG + GMTvUQM4zJnyLRkfSMTjiG8pC MBrN8m6KcAlJoU4WIydV0YmSK GadimmLd44cN9rJdMjFbX0PRy u Y8AmbwC9VUVfrVUyAMhnKET8V 05pw8S4MYDiFUSzZZR7mEY5pU 1hbGlnbjogbGVmdDsgdmVydGl j KBrmEKlhQ118SHCkdVjkAhXzS gJ3SuK0EYN3Q2PxQvn0HOUkrR iwZI3saMYeODdlPq7luPicjFx g KI6tCLYdnlxbCMSqaU9pBMLws EHlnAdfKX5kKBSpijulw182De GrXPI8EYDrbNUkB8RecE1fSpG j VKNvRDDqM2SsjEGyOQrvD915Q DdrKgX9RZIchkNpV5OnHCPduJ ugOiE3a4Y8Wg1qMvMQIIAodne v dGQ+VBNiBSG9oLmnKKumLDGhi O0uFLQxW5o2JsEnElA4UHjvX8 PwSFShszxxVu81fO7tEwBqQeY 1 MUiwN1JjpuL8OMKlkQWtUIebN FV4U31rm4C4JETeJHJsTZJ3jA R1jB6qaZjtqfdlmJEohXphdeQ y iYeqLWfpREudA209DLVpfZlqP kZFTUFMRTwvdGQ+GBWwWYL0pW fbOCzuZFBtyY4dCXAcL8j6LjX w KnX4IHfzF5CxIFPprkeeCc11l P3jIcJnOmH6OXgwJ4TtblX8CY MdpBWsNMhdEEU9B12fs1T6PQZ w KBAaDFI5hIB2mP6mpNmubcfwj GVmdDsgdmVydGljYWwtYWxpZ2 29DIYcbKgzKvUcCUEnJB4wmOq v dGQ+FH74xv24X1KhOjthXbl0P BHrHWX5dCD0wM9sONCjWPntb0 Z2lDY5J8HagxXivv4to5miRVJ z DRanQ92luWQgv8E8BXFqgDQ9G HNwbHqaPtMbbU40Qwa+PGNvbG hth8VnVlfhz3xem9usfMi9MoP w HSTlzwHtoHgiPBM5e7TwXt83H 29sIHdpZHRoPSIzMCUiIHZhbG kpug0aaS5hTq7+OIRccUC1jYS 0 eB2gIyZbSxD4TGvrY064CkBwl IFdYjkqq8rxb9fwmRt3CvHwFJ GvduPltPwnMOM6b0EjBf69O5O v gQiwz2ZxPjo6la20sQMup8M6g YA3K9KlJVRruavekLNuvVrwPV 6zRYEznnhmYCVicQ0lOIKvI6x 0 DpSdAtI6JGupT7PtslE0AJPsf OPlIVYfqVSMvC7cciikm2aeyo akTtYqCRDkAZb7LPs3HFKciCi u NoFtJGT2DrD3ZGQ1qMIsvV6si XgtdobhbG9ySbe+SOq7t9lmlE IxTU8bhNY5VO66YM73oKDwa9H 5 yBU7V7XiONYpdhibxqqonHG5F FTrXUOcjZ93Gu7uuGmiHw4cVG KePDX4ZWWqyUBbO6KblD6xZtA j KRRlIWFcQ8BscURyNNktD874K MzpRkK3DDPpwfZkB2SfBYXijQ vqAfY6p8O0Lx2LFJ77HM00PS7 8 aQPgp0T8bMC2S8AlAMAhklbcj vfvwRN8JIGvSVAcoY01Vw2zgO nmTx5uVOPeNIX8FWSxeBRyJ1I v zV2oJoJkDSFdEYRtJ2AsbEAwB PwkM709LHcbGsE7GOItwzLtD6 OlREZutTqpHvH2h4D5Xy4MWf4 6 MM33UC59rEVzk0X0wQF9G8RrR OMbkcxyhcmphCJ6SOOyRDIaeV 33Qf9ldIwpAe3jMPSnMPP9PDA p nDOmI1LooC2lLeWvPLKlQZReP 2GbtMEqFIzbQ389QShrUjP0FG YsrwWiH8KlWTVokGkpNjI0n6J 7 Dg5RLPihjkz5H6FwGfhzfQW+P Q56JEEqYP00jXJxvLNad0bbeK e6CwPdKSBmIKA5yBdcVYnea0D k ZXI (more content not included)... Normal [facility] ED Clinical Summaryon 2022 ED Clinical Summary [facility] ? Urgent Care [address] [place], [place] [id number] Clinical Summary PERSON INFORMATION Name: BARBRA CLAROS Age: 27 Years Sex: FEMALE : 1995 MRN: Acct#: Visit Reason: UC - Shoulder Pain or Swelling; RT ELBOW/SHOULDER PAIN Arrival: 01/16/2023 11:29:24 Discharge: 01/16/2023 12:40:00 LOS: 000 01:11 Check In: 01/16/2023 11:29:24 Checkout: 01/16/2023 12:40:00 Address: [address] [place] [id number] PCP: Provider, None PROVIDER INFORMATION Provider Role Assigned Unassigned Esther Friend PA-C ED PA 01/16/2023 12:04:40 Miranda Henao RN ED Nurse 01/16/2023 12:16:32 VITALS INFORMATION Vital [...] Sling Follow-Up: With: Address: When: Simona Holloway [phone] Within 1 to 2 days Comments: Call to help find a local primary care physician. With: Address: When: Return to this practice DIAGNOSIS: 1:Right shoulder injury Patient Understands: Yes - Patient/family/caregiver verbalizes understanding of instructions given Comment: Normal [facility] ED Patient Summaryon 023 ED Patient Summary [facility] ? Urgent Care [address] [place] [address] PATIENT DISCHARGE INSTRUCTIONS Patient Information Name: BARBRA CLAROS Age: 27 Years Date of : 1995 MRN: [id number] Reason For Visit: UC - Shoulder Pain or Swelling; RT ELBOW/SHOULDER PAIN Arrival Time: 01/16/2023 11:29:24 Primary Care Physician: Provider, Gerda Attending Physician: Esther Firend PA-C Comment: Patient Education With: Address: When: Simona Holloway [phone] Within 1 to 2 days Comments: Call [...] strengthen the arm. General instructions ? Take rwbl-olx-ditntrj and prescription medicines only as told by [...] provider. Document Revised: 02/18/2022 Document Reviewed: 02/18/2022 [employer] Patient Education ? 2022 [employer] Shoulder Range of Motion Exercises Shoulder [...] care provider. (more content not included)... Normal [facility] Amphetamine Screen Ql (U)Ord ered By: JUANY CHOI on 01-14-2023 Amphetamines Ql (U) Negative Negative [facility] Barbiturates [Presence] in U rine by Screen methodOrdered By: JUANY CHOI on 01-14-2023 Barbiturates Screen Ql (U) Negative Negative [facility] Benzodiazepines Screen Ql (U )Ordered By: JUANY CHOI on 01-14-2023 Benzodiazepines Ql (U) Negative Negative [facility] Benzoylecgonine [Presence] i n Urine by Screen methodOrdered By: JUANY CHOI on 01-14-2023 Benzoylecgonine Screen Ql (U) Negative Negative [facility] Bilirubin Test strip Ql (U)O rdered By: JUANY CHOI on 01-14-2023 Bilirubin Ql (U) Negative Negative [facility] Color Auto (U)Ordered By: LEIDA CHOI on 01-14-2023 Color (U) Yellow Yellow [facility] fibronectinOrdered By: JUANY CHOI on 01-14-2023 Fibronectin. (Vag fld) [Mass/Vol] Negative Negative [facility] Ketones Auto test strip (U) [Mass/Vol]Ordered By: JUANY CHOI on 01-14-2023 Ketones (U) [Mass/Vol] Negative Negative [facility] Nitrite Test strip Ql (U)Ord ered By: JUANY CHOI on 01-14-2023 Nitrite Ql (U) Negative Negative [facility] Opiates [Presence] in Urine by Screen methodOrdered By: JUANY CHOI on 01-14-2023 Opiates Screen Ql (U) Negative Negative [facility] Phencyclidine Screen Ql (U)O rdered By: JUANY CHOI on 01-14-2023 Phencyclidine Ql (U) Negative Negative [facility] Comment on above: These are unconfirme d results and should not be used for legal purposes. Drug Cut-Off Concentration: AMPH 1000 ng/mL FIONA 200 ng/mL KIMMY 200 ng/mL COCM 300 ng/mL OP 300 ng/mL PCP 25 ng/mL Protein Auto test strip (U) [Mass/Vol]Ordered By: JUANY CHOI on 01-14-2023 Protein (U) [Mass/Vol] Negative Negative [facility] Specific gravity Auto test s trip (U) [Rel density]Ordered By: JUANY CHOI on 01-14-2023 Specific gravity (U) [Rel density] 1.007 1.001-1.030 [facility] Urine clarity by refractomet ry automatedOrdered By: JUANY CHOI on 01-14-2023 Clarity Refractometry automated (U) Clear Clear [facility] Urine glucose measurement by automated test strip (mass/volume)Ordered By: JUANY CHOI on 01-14-2023 Glucose Auto test strip (U) [Mass/Vol] Normal mg/dL Normal [facility] Urine hemoglobin detection b y automated test stripOrdered By: JUANY CHOI on 01-14-2023 Hemoglobin Auto test strip Ql (U) Negative Negative [facility] Urine leukocyte esterase det ection by automated test stripOrdered By: JUANY CHOI on 01-14-2023 Leukocyte esterase Auto test strip Ql (U) Negative Negative [facility] Urobilinogen Auto test strip (U) [Mass/Vol]Ordered By: JUANY CHOI on 01-14-2023 Urobilinogen (U) [Mass/Vol] Normal mg/dL Normal [facility] pH Auto test strip (U)Ordere d By: JUANY CHOI on 01-14-2023 pH (U) 8.5 [pH] 5.0-9.0 [facility] Coding Summaryon 01-12-2023 Coding Summary [employer] 64 QotlrmkaEZf8wEh+PGhlYWQ+P X2EMWXoR98guBUaeM8wM8JAGL lOSywgQVBQTElOSyIgbmFtZT1 kaXNjZXJu IC8+RW7wHQRfMahneYEza6A6w DM1R03qkp5hXTdhrKF5XLGoVm Yrbimfw4hjkLx2KEgrFhwfDhN t TUZkoE34EJV8jX25Ku78sVLzh LDkt8fkzNv3IoBnKNOpMHJ6dV vdXVnzw1RiUJLaK92asUMfk7H 6 QLHelCfziWVjVnHwkVN5eT3bZ Todujiui7ldwafkFgp2nz82pD Nnt0X7hJU9Q4GcpvO9HXRsxYD g HtshlHKDkU1nisony4eldsenD fYsQRWbZSk5FZu3TNFvzHbtQp RmDV30UNG5TYYsvaQsP4SwQWQ s sLfsBfG9o1R6Sb5FU1DXBaclA 1VNTUFSWTwvdGQ+JV66xf99E2 OrXvspRiu6MYOaNII4qBD0dQ8 n FPHuUCfzw2I4dMW6N9ScwkXuo y8px4myHYBmCUetT39kqTQte3 N0PEItfMX5TWUjyUskZuXjpH3 3 Oyc+EQKzaDuzg7SqJpcis5xdp 3rxaLc9OtksYNGkohThhEbdHX A7j1FoAm1lEOVeiET3fOR2rZ3 i PbJtQqY4DJluW395LxEnlEYnQ jljR74qF4JzbTO+JFGhTdr1AP RunYwkUS3hS5EpWNGnpibquEB m hYiyNZ5jHROfeeenTVKcqK4nQ TEoR3r4CrRvGyG2KBifJ1MwBM IgzqvgQm42uH2sLzRtMwM1LBn u Z8IobgG4LQWjhLGqVWcgUCE0H 65hp4Z3NYPjYOClBRL9nQW1kJ 1hbGlnbjogbGVmdDsgdmVydGl j HJohSIpkB554TETmzHiwHlOkU GluZyBEYXRlOiAgMDcvMjcvMj AyMzwvdGQ+TJEbTWO0aVqsRIJ n gCXrLUgsWt2kjQjcwWqgPS9wE EIrrqanONOpdP9yIWJsaOEkvS llNO9cUNKvdsvxi233KaCzCMN 0 ZKIliHHzK1FvhR0mWhPyTQVwP PVoH9YfcENmYZcuJ639CIfpGk J3TNVcbwFiD1RxMALntJwsCfQ 0 c1I9Vq3Ku1NmqpluA1UcqYGhP xMsVviiZHr2B7FdXvvqjLL+PC 40ORBrTD22VLk8AOE3rQkdKIv i HEDlX2YjpG3ySiVbAPWaNKAiT yc+PHRhYmxlIHdpZHRoPScxMD SfImFrxBuxTS4sGu5aBIEfCAS v lQbktISnFkNvl6vaQIAjUTnqM K2gpRkeZ2DkaZV8STFip2v3Hz 49V58zD1GahKI+ZPFkzYK6jHG 0 lH9rXhFjLwO2LNbdJ983DrSlm DViPtqog1snq5ekjGg0XaQ1GE XppqRekBufITP1g7BmBg06Q49 s IHdpZHRoPSIxNSUiIHZhbGlnb w8sfU9fFd0+HSKmyVK1bBL8mC 3uAiClZaI5WSsuF648LyRogJA v Ykxax6bjy9wxqEf6IdRfIWHjz mYtcSvfJEB7p2PzMu10X2AqhK ogo4MqTvg7rb08hMJfc7I2tHV 9 F3YiOFZnswpetKOjaBzaYL9aH VOmeeuiVHWufE3aSEWpS8x2Ak OvOpT5OWcxU5NabiT6WRCvoLW g QCAwpXMErT9zxuwpu3gxjpthR eEsEXPeXIq8YMw9MPXxdZghEl CaQXR0HuM4ETO2oWAdcV2xhKd n vtgclO2nOrq+IIT5rTOkcNHTF W7nVdmtrGL+OUSmPRA9oZldNA iaPJZmnB8xKYDcR4n7SyPkBlW 1 AFguY0FahfG3SCEmsFFbOXXrw ALMsG2wxqxww4bqdfajUfPuYG JuPVn2VNr2PMVluFhqYpAdEBG 0 AmM2LBB5oTYuaW1icMduumdvj G9wOyc+SpvscLirHJF6WYk5X7 KsOrp8UEUkcMmkTN0inWLiHYk u Ma6awJzlzVoqPO6pWAGzpoexq 517PnYbs9jlGNJxiESwHWmrLJ O5I45rp8F0RAYmWEHsGNP0mIY 4 sJ7kqDillyazbZXzvGriabHpj NbnYKaoDJbmF681AMSuiCimZo CmVUi3T9JjIml7BAJntItbDZ4 n nSGaSRtsZv8muTtidVavYS4qG XLixfnax003MxQaz4tcJKIuzD YqBUqsTDO1M28ln4W2IXBdWRN w CTK0bVZ0qO2elElzsodnsTTga PinwpKjiKfxHPxtUHfqY301ZB XtqSglJyXihYe2Z7YpRrh1BDL z dZzvVV7zsAXoEHgzJy9waAmhw WaoJX8pTFNcggfkt065PhSwr5 zjVHObuWJxEBeaDLW3M38iv4J 6 OHRiTAFiHWD1xGU2oA8lrWyyv jogbGVmdDsgdmVydGljYWwtYW klE005RQQshBjnWsWpfFsylwZ g GJapFFs3S3ExRpkfgDL+PC90Y ENqYE33dNLgdXRnn2pkmTj0Vg QkIDPoYOK4uKiwLRqbn7AzQLI t F63tlVRab9T6YIZjuMglvGGzR iOyoYZ9gI3uYWiuqhvlw2yudr slBxyfe7nqei18uG09U11bFAd p YLGmWMJlQDNpEOPcxNomiy1eq G9wIi8+UTFtvUY0qUS7nC0zKA LjMvU2BNfyZ381CgWsjVPiWsi j b0sin9rljTr9MyX4HWXuvpPox KhoFOV4u9GrGo70V40yDNsgZE IrCRJaVNQcLJDvsXqmjt0qmS5 w Ii8+RUWijMK5bLD8mA3rIxSvY oV9MWavY214GjZpfHVuIlboJ8 1cN1KkqXB+GVAyBbj0RRUztWi s FC9wkMNsIPrzQi3pRXX9BpWsX hWbFXkaW5XqOQNugduteoenlG H0IAXkNKXkeE58Df3iwGmyBFD w lIDGxS8tsmvcx4ykrakkOsOsG QIwHRu7ZPx6DVNwgVqpJcArYM G8JzD8UAE2uWDhqE5iqDsuddu g uG3pR5IiCWLjdmezQp02lP4tK sCrNdU6EUvsZmu+R0sHP85KSB FVBOZYXQ4GYIHLLRaFDyukeOM + NJLhEHU6vXhqPXarJMMxkG1lH WVnT0z7SyNwVnZ6ZKbsI2WvBR DqqmztNa25vV4uKjCmNvS6UVc u P8YkscD2OBWetRIoWQkzODE2O 78jr8P1OTOtFDDaQYX3rUL2rP 1hbGlnbjogbGVmdDsgdmVydGl j ICfwIVmlS466ULVpnKbwEcMyC jM3PzL0REB7Z2WpTss3FWXqoN syIH8geZVkZTrtRr0cfPgdsVj g LI1nHYTyfoqsKQGziN4kUQEli GIilCpaLN6cERGdxgqrq191Hn BvZSF7DECknGBbW2DqwV8sEtM j TYVpNXClX6YlqLTiLTsyK399P SeoVwE9DLNmioJdH4EsRLMuxP wuMhY7a5J9Wn1gFzWLJKBnali v dGQ+PABsKIU3eQhdJOzeKEKqu O5tHTPxJ5z4WgHuEeW9QVozU7 OeIOFcsqszAg35zA8wHeIgFxV 1 BIwsX8BqhkQ2KDGjhOXxTUhdP NJ9B29vt8V3CNJsDGKzYKZ7aE B5bO5izPazdmdviMSwsVecumV y qUdbVXrrLYmyF105NHQrhAyfT kZFTUFMRTwvdGQ+JJPgADE5xX dqEYhuAMDffW7jQLEyU1z0WiX w AjJ7VTfcH8DxNSVorjqdFj45o W8bFfZgAmD4ZVerC9IxfhI8DB AseVUkBRwqPII8R41qz7O3JCO w UOFdMDH8wBV3dW8fkAekrlbhi GVmdDsgdmVydGljYWwtYWxpZ2 41RDVmyBaqQz1KLA58DD94X8G y PjwvdGFibGU+PHRhYmxlIHdpZ TNtPFupHJOvVfHuqYrnWC8oKb 0xZYOgBJZwjJmdxXMuDbZuj0p s WRHmMLidGD9cdKjxU6HmnAE0Z OBud9m6Ii23F30zR6YrdGV+PG DvnWW6rFB0sG1cFoJzZrM8ZBq p I607GjRylKToFymhj8qfw0vdj Br1UqZtFTPwftNshYuaCCA8x9 LwIc60C30jWLznVOKwMIJoQHG i OYXxmUbwxe5btZ8sJs2+PGNvb UD6iQY8iM5hVeAoTqW0DSsaY2 58NmPieVYrFamsJ46pS1FejAY + ETElVly1ECYxyQhdOX8djJNkO DtmMa9zFIY2JvTvLrNhYAvnA9 NuGVLncpheckujfRQ7CNZeZFZ w jR01Ew8itDdoDr1aIJAqLGM8V YPmiHPgK0FjrO3bCfTpIGAmKS LmE2DtnNNiZNmrG250JFliEuR 7 SHFasuAaE9KaBGPzxVglLrP5g 3B9Ix2PhYocaONaZH6bPsJmWK t1J4WtNpf4COEagGcrPR1cqAV k LRhwCf2tqVlflXieVT2lXIMmi bnub384KoXpv0wgSFVcrSZuUY miBJY0F28lb5T1CQYdTTUuFWI 7 qUJ1iY1qwPnjiqrpfKVwdOkku lOxvDyaQOqsKVkcH278SODspD bqFhSCPkm9D3RhCof8LPXemVv s IH6kfYRgEKfxCv3ueVriyRfoI L1dYVAaumcuq251MqRps4xzHD SscPIzLOsfVYJ5F73ns2L3IWC w GFYmRUU8uXE4zT1bqPsgthjuh GVmdDsgdmVydGljYWwtYWxpZ2 13QUYweBpyAx0BWgm0O8UjMuy 0 VRNkhWebQK1yhRZdNMnbRr2rq TzcdDfkBP0sSNBapjwdf614Gj Fxo1mbZUHvjQUrEHyzRLT9N92 s p0U8TDWcFHCvUDL1iGL9oA1zx GlnbjogbGVmdDsgdmVydGljYW teRZwmO033UCUzoEruTyYdsKE y OjwvdGQ+UO51fh49C0VvYjfuK fp6OVGsREO9fWA4nO4oQEAoHY lxx0C6bAQ3W9JzneUmtf3px5k s YXB (more content not included)... [facility] Coding Summaryon 01-11-2023 Coding Summary HTMLBase 64 WqumtsogKWx0bLk+PGhlYWQ+P C4YQPHtF23spEDhzD6pK4WYTU lOSywgQVBQTElOSyIgbmFtZT1 kaXNjZXJu IC8+AV8cAIGbUyzmgKHpo0S6s IA7M34zde3vJUbjjUT5RYBwHx Spjomfh9vioCe0QLzhSargFtI t MCFktO98IHX7fO55Wn45zBExk AGyi2sofLd4FuTtUZXlTIW3hW svVJxmy9BqNUNfB51xzSSoi1I 6 FONmaRstbKXkTzXrcMR9zX1yR Rqnecmqh1gokcisChz9mt00rL Nbq4U1nON0O6IpvfF4LERygBJ g IgurzDHMgK9dkmzss5nhlqdkV kYoAKCsDKk1GDz6XCEwwKxjOh ZhWJ66JBM8YBSdrkMoL1RhTKA s dVqsLuL5m1F4Xh9RR6ZLKrmrD 1VNTUFSWTwvdGQ+TT98zw44Z3 JgVcygCxu7OMOiQGN2jUA4gO7 n XYGgBOwbw1Y2gTH4Z8VhmdBtl m0tp6enXESbYHfhP86qeNOyb1 I1XTBhyWU6AXVkaAswVkRcnI1 3 Oyc+MWTrvPnlz4LxSxrds0nbh 7ezdPg1SssrSFFnnkEldXfvER Y3k6YuGx2iDMEywRH2qMY6fQ5 i ZrNeQzL1EJrgF784CpKpmGZdG hpmK25wW0QavQK+PCHoYrp6GZ GlxQsnFC2jL8DgSNVufjlmgUK m zKlgLW2iZOXmhiypJAXddI6jI PPzK7f5QpBbOyP5HYomZ4ZfKS JrxyphPj68lK0iUsQlGyR6KAj u X9NmthP8FUQjjVLaINmwEBB0E 96iy1P5CRJfXQGfVIO3cCP9yZ 1hbGlnbjogbGVmdDsgdmVydGl j LGmcXKpbB176UHTmbDlvAxTdO GluZyBEYXRlOiAgMDcvMjYvMj AyMzwvdGQ+PZDdABO4sTqlDSA n tQZlDNniJo0mkZeaxYqxBU1tR WVbdtbxQDZocA8vQIHvtXPhuE iwKX9xIWFeqlfqo028IiQsKJP 0 PKZhcUAcP3RyyO7gRvXuLBNfC TNlI4DwiHJnHNivQ549FOtnHg P6HAXemcXxM4OlLQEkpMcfTsS 0 j0F1Ew4Er5TxbjviV8HkcEPmG vYlQtstTDp2W3EgEbudvWR+PC 10KSNeOS41ODn0QOX2pNbdRBq i CKOvO2KumD7zNxArAYNwADFxL yc+PHRhYmxlIHdpZHRoPScxMD NrFfMziHtlRA6uWf4yGLAzMLZ v yQzjiYVxYaFeb0rdNQSqXQtpG C1nmXibV0PlqNP3JBQkj2v4Fk 93L21wU1VexAR+XSWojNI5xSW 0 wG7pWnSkMsB3SOlcX145JnShb CVmCtsen5osl8cccYp1LsV5IU PsieRqmAnfZRK9a0WmUh40U56 s IHdpZHRoPSIxNSUiIHZhbGlnb v4ynL0nVt2+GPIxfHN3gLJ1mJ 3uFpPpLlX9WPshD132MjSnhCA v Gjfnx2ucf6qsyPv1CjLqXMHkd sBpgNyyHMD3x3RxUe62I0QlzZ hrv1ZrQjn3mo05yMEwl2R3nXP 9 Y4LyPCAkvgvtnLVfiNelBS2wK LOfftlyBGCjgV0kYALsW4b9Lk HiRdX9IBamC9UvhkX8EOFgoVV g LYGwaJMJuL9kpjidm6hbghqyG fCuGTCsINe4TSb9JMLhyFhvQu YdLPM7FmN5HXL4vSFgeI2bcOq n ndyehV5jVmu+IQK5iDDhqXMKW F6lIhilmOE+RHVxEJO7hNjpFV xrTRRbfA0tUCYzC8o0HnYuSwO 1 PEpsN2PzoaS8OGBydIUrGZFls DQVpK2skodnb9uhxfljIoRyAN OxGTj4DTz5ESFctIhxLwCzOMJ 0 MzW8SWU7gXPclP0siSpffmxvt G9wOyc+BhfqzZkgUXK3WBj3A4 FpUer7GSHnsPzvPK8mpOXbMRn u Zx9xfWoriKecAQ1dOEHkcqhqt 514YsIqi3zuBCCooDObXZmlIS N9V80cv7V1AXLoQRTiVWO7lMH 4 sL0jzHkyjhovwUMifRisdtYxb SulZPwjAPbyL944JDLixChrGw PmMUd6X2RwBlz8LOEfrKyaTE7 n hRCtYEmiAw5enDhedCxjFL7eH PErhbrdg483TnYah3giMXHxfH NhMLckRDJ8J61ys6Z9KIGtUHR w XYI9tHT3gA3ziVctrkltjPTbk IledkLibPriLNfmAHdxI100TD RplEmqBdTimAs0Q5WnQhq1TSS z fQrcIP1zbNCsYWckSx0mrDbgi HvlZX2vPWGjcjuxy136GgXcn5 xoLNVuqZBqMRoiQAV1I10jf0P 6 ZDIlZCQeRHO0oCB0gY5jiNogk jogbGVmdDsgdmVydGljYWwtYW adE504OJJfwXqtRiSvjMrsnuE g QXigFNq7A4QuVffsyYP+PC90Y CWkVO20gTPmtZUpv1vdeVy5Hm QcFIGvSSZ5xJmcZUkkt1WnVZN t L14npUXaj0T7TYKnjYwtjMEpU eRvfAB6vV1lRRebnzdff9rtof hgIaiub6yzjw01nW47M08oSTh p DVCnBDXbHVAbPQOuwJjiop1qf G9wIi8+HALcyIQ1hKJ3wA0aLM TmYyF9RTciD112WdAdtAYoTvu j n0cca4vcgKz0PlZ7TXRtlfLuk SszCAX3e7CoWo68F81xCXpgAI UhITRyVARfFIRmcTbrhk2jeK1 w Ii8+OOBljOB6dTO2qU4kLcNsU rX7VZooZ300MvMyyZKzEyekY3 7xS2IabEN+YKAaHhz1QHRwvOt s WR3rgTArJZesCc1jDKH7CzXrC jHvBAxaN4GyXOKecmowqrpapM K0BIBjIPBnkI80Rr4acPyuCRP w fLHTeL2ajkchg5skzyzjWdWpP AGoTHn7MEf8JCRbkCcjHePaCT K5XsE4DYA2aXAxyN4ziDdbbox g bY8dF7WyMXIbdeqxBt23nT3uN jNxElD2HOrqJoe+Y1xGI72YWC NUZEYTPI3ADLSBLIsDGtuejKI + XTPmBPX7xGlqMHwiKXTxxR6dV XMaH2m1QcBwSoR2IAjvU3JiCV KlihkkDm29eS5oBtHsJhQ4FRc u Q2HdnxR9ABHkhXKxLQecZWX8N 68ob3J0DMRkYOHtEEA0rSJ6eW 1hbGlnbjogbGVmdDsgdmVydGl j WFtrGQcfY521HDXwaIupTdIdU lS8StZ3ARF9E8RaClw6LCYsvJ wpYR1mrPGuDHqvPs0xfVmmuAo g AY8gGACmufpiCJPpxF5sLMUxg TEybUivSN3pJGXftugqj245Hy FzAIR5WZTidWMxU8GcvY6sPoA j CJDyZSMlT8FcnKMsSRqdJ783E XluUcU7GJCvljQsM1IfUMBieA orBmG0a9L5Tk6cHuAWGVBxezz v dGQ+EFMdDDQ9pHdhZFdbKVXzx C7tCNRnZ4c1PjHtTuK2JSkdV2 XcGSZdgrcrQn38rM8kNxVtXmY 1 BKygG5DgryU7BJVyjCQtDKkoY MM8C53pv9H2UMUnXMIaLEX6hP E9qS2baGxggigpnJNhyRjqdsY y aOwzKFvuQJhqX868LYFwaRbzN kZFTUFMRTwvdGQ+ATHnOHD8iM bxZNuhWHTyfE5kABEpR6r2TvD w UnY0QGnuD0GjOYIfcdyjTm28t G8sXbTwEoV8QOizA0FglkA2PJ VbeDHlEAfnFQJ4Q89rx6U5LTQ w NGOiAJJ5tRK0dG7irJmmtkgqe GVmdDsgdmVydGljYWwtYWxpZ2 18FKKwvYfyIr9MLT50LS54J2U y PjwvdGFibGU+PHRhYmxlIHdpZ HQtGMjvGFKrSqCzpDatHC3hXy 6xTRBuACKyrZlerIVyYcAyg2m s HVBsNOwbYZ5kkTtvQ4AovZG6X VFam0j1Ul54F19mQ2BarNP+PG YybIA8iBJ6tR1zYiHgSxF1ENw p F813UxHkpZKpVpnzn3sxh1xqw Wx6LmNqXCKeqpMsfCifWYK4z7 GcBn11L50dFOmjPFEwFNUlZMN i UEKaaZttam2muB1xSq8+PGNvb BR9yMT8fN4sXnBnDcY7DLosY8 71NmYkrMRmAjxtT75nK5ZpbGV + UZDgVum4NELabYiyTC7hsMYzJ TsbKz3dUYY9TaAiIkImCEjtZ7 BeCXMhvlaehgwnzMQ4PTRhCMX w vD04Gy1ttQngPx6eMDFcWUL1R KHtsWTvI5AliZ0oFhUsACQkJY XeF3UplBMgSYdqI513QFmsGjJ 7 MCGnhuSxT7FqIFXdpYtgIsS4e 5Q1Of6UeOiqlCOhPT8vJxBrPF a2W4JsNwr8ZEAwnQkdEC3bbVM k NOfkGc7tkMvgoMdkXE1sBGMnr oqrs987UbRmo8dwIVUsySBsIW ieOXS8U74ua1P1XFWfRFDuEXL 7 iIX2pF5aiYdjtbnzsQXfsGpbl nImnWmmPStcZKgtB689XVTedX uuSlYDQog7H6UnMuz5DBHtaGu s FP5bcPFvOPkaMf2kfNcyfDbrL A8yAYSsluxug670DoTdc0aqHP YjsKFlHGoiVNC1R84tv9B9FUX w FNIfNJI7yZU5kZ9zoMrtuhykh GVmdDsgdmVydGljYWwtYWxpZ2 26YXKhhJcfMv9MDmw4Q7KnWgh 0 GZIwcDyvXC2tzLPuNWzdDn8an IekmJljHL4nBNQkmttig312We Hpu3eyIIAvtUWgFZjjENM2F60 s p3L8JCYgLQOrQFX3dOU0iG0ub GlnbjogbGVmdDsgdmVydGljYW xdILuiR934CXCfoBumLmIbgUC y OjwvdGQ+CT92nl52G2PqYclsA wv8TOJmSSM7qMU8cR3eOHTdAG hji6R1wGB0L3UqqaRyfd6vt8l s YXB (more content not included)... Normal [facility] ED Clinical Summaryon 2022 ED Clinical Summary [facility] - Emergency Department [address] [place] [address] ED Clinical Summary PERSON INFORMATION Name: BARBRA CLAROS Age: 27 Years Sex: FEMALE : 1995 MRN: Acct#: Visit Reason: Ear drainage; Ear pain; RT EAR PAIN/DRAINAGE Arrival: 01/11/2023 07:59:56 Discharge: 01/11/2023 09:01:00 LOS: 000 01:02 Check In: 01/11/2023 07:59:56 Checkout:01/11/2023 09:01:00 Address: [address] [place] [address] PCP: Provider, None PROVIDER INFORMATION Provider Role Assigned Unassigned Anjel Yates MD ED Provider 01/11/2023 08:03:58 Kat Narvaez VEHICLE [employer]IMMER Nurse 01/11/2023 08:35:38 VITALS INFORMATION Vital Sign [...] 5 days With: Address: When: None Provider [address] [place] [address] Within 3 to 5 days DIAGNOSIS: 1:Right otitis externa Patient Understands: Yes - Patient/family/caregiver verbalizes understanding of instructions given Comment: [facility] ED Patient Education Noteon 01-11-2023 ED Patient Education Note Education Materials [facility] ED Patient Summaryon 023 ED Patient Summary [facility] - Emergency Department [address] [place] [id number] PATIENT DISCHARGE INSTRUCTIONS Patient Information Name: BARBRA CLAROS Age: 27 Years Date of : 1995 Reason For Visit: Ear drainage; Ear pain; RT EAR PAIN/DRAINAGE Arrival Time: 01/11/2023 07:59:56 Primary Care Physician: Provider, None Attending Physician: Anjel Yates MD Comment: Visit Diagnosis: Diagnoses This Visit Ear drainage ([id number]) Ear pain ([id number]) Right otitis externa (H60.91) The Pharmacy at [facility] is open Monday through Monday from 9A [...] alcohol and/or drug addiction problems; contact the [facility] 09/01 Crisis Hotline -Text 6SUVR ir [phone]. If you received any narcotics, sedation, or [...] 5 days With: Address: When: None Provider [address] [place] [address] Within 3 to 5 days Medication Information: The exam and treatment you received today in the [facility] Emergency Department were for an urgent problem and are not intended as complete care. It is important for you to follow up with a doctor, nurse practitioner, or physician?s cashier assistant for ongoing care. If your symptoms [...] so we can reach you if necessary. [facility] Emergency Department has provided you with a complete list of medications post discharge. Please inform your department editor/provider of your visit and for further instruction on these medications. Any specific questions regarding your chronic medications and dosages should be discussed with your primary care physician(s) and/or pharmacist. New Medications [facility] [id number], [address], [place] [id number], [phone] colistin/HC/neomycin/thon zonium otic (Cortisporin-TC otic suspension) 5 [...] 2.1 (Bio[employer]) from Nasopharyngeal Swab collected on (more content not included)... Normal [facility] [place] Teston 01-05-2023 Glucose [Mass/Vol] 87 mg/dL Normal <=139 [facility] Comment on above: Performed By: #### 2 [id number] ####[facility] (DEFAULT)[address] [place] [address] Provider Orderson 01-05-2023 Provider Orders [id number] FF Normal [facility] Coding Summaryon 01-04-2023 [facility] QrbospefSRs3sLw+PGhlYWQ+P L0UWUUiX88goEMsfG8qC4IQMJ lOSywgQVBQTElOSyIgbmFtZT1 kaXNjZXJu IC8+BN7yJJLhZtxbfEPew1O9e RK0L15tkk3tQFbnoWK5MHZbDj Jironrc5fomWm5WOorFmbpBmG t ADPdlD00HAP4jB96Yv46qTXgr NUfp9aquLq1QtPcZOOkUEJ5zR htPVaub7JiRXOgC95beAPzo1G 6 JNDjiJjgrOAtRkQinIN4iO1uL Atmllinw8tjbmpzDbv5an48pQ Etb5X2dBU6I8YuorD2CFGsyIN g ZhbjfHSEoD5tyrsbm3dvmqocU vObWBUzZEy3AMd3XXTdnHchDd McGL23JJA2CRAlilNuB3DwTWI s sYksVuK1r6M5Gv9ZY5SGWwwbA 1VNTUFSWTwvdGQ+VW44gz58F6 CrDbdjEaq2PTHaCWQ6lEI7sM4 n ENCfSGgud9A2uKZ1R1YvmyVfm r3oc6vjITGpNBsnS71rmNFhh6 H8FBRsvCO7VMPbrVvzTnHocI2 3 Oyc+ODLttKqda7KaChaaz1tbi 7vhqNd7QdlkWVOxdvVlfBstHH N3s1ApHf0fFGGrmBX3hLG0eT5 i ZyZzSfT5YYrcN368IyQdbTGzA qznM95uX6XrwFO+ARIlIib2XV XarQmjBC6dV9EbIPFdcpjgcTK m nCykSH6gKRXqjwteLFZzfI8wY RWoI6z0SoWqZxH3YOdhV4SaJT MvdexgQb97zJ4wUqYhNlU8LGj u J7XtikU1SMVkjZRwNDzkNJU2B 15my9J0LJVeETHsKOK4uMT2uI 1hbGlnbjogbGVmdDsgdmVydGl j WJruGAsoK652VMZjiLgqStOsG GluZyBEYXRlOiAgMDcvMTkvMj AyMzwvdGQ+DUTmQLU4yHbhVBC n qZPcSVioYg4ayNvktBgzLK0zZ KVqsmdmZMMxoT8yXBArqOMmeH ovUE0lHOSmlyqbc229YsCsLHU 0 BHYvoYJlM3NnwX9vVcRjWSCgM CMoE4ZapRAtWFnzU222ZOxcCk Q6BJDmsjFeP4UzFKIaeNhjAkX 0 o9E7Jn6Ko4JgepqpC6CrqRWfD cJhKukcSRn6H3NsZktepLY+PC 67GWXqKU09CVm6ZRD8lEhsTWq i KRMgA6PpoR7rFkKjDYXpEHZlX yc+PHRhYmxlIHdpZHRoPScxMD DkAeOfdXmqWS9mUx7nRUNoMIX v iEariGKjWgUqm3xbAVEuWPoiV Z2ydBybA3SpzUY0BCRcl0c5Yb 65G64sI6TbaXF+AUAxoHC4eCL 0 yA1pXzYcXvU3VAeyV212LyMgs TLjZnsss5lfq4evkYk4FhE8UR RxgjQflEqgMQH8y4XjId66V08 s IHdpZHRoPSIxNSUiIHZhbGlnb u8ngJ0vFr9+SSUruIO5nEX0gU 5vWeRcDnD8CGrwW856GgRidUW v Hzrez5jkm9abzAr7TgXeRLHfv xWmcPikIGK9j0OeIq11Z6LygV zfd5XoSrx2pq02tATsj4A2cNX 9 H0ItLBPwkppgeZFkiGdoNP9nN LKvfwhpPCNfqH1uTADtQ9w1Xp GuAtN4UMleW3RzybM5ERVdaVC g BMSzeSWQqP8iayanl8owuwphQ iOkWDHvOSd6UQb9XIBjuBzrOk DzOCA7YnT9KVS6rDUoiH1xxSa n kxljaV2oBse+HGB4gCIicHBOA D4iTncioFO+DCRdBOE6bJqfRA drOHGznP4nRGAuG0c6NiMwUxK 1 IUzmK2CeghR8HWVlmZJgCQPai UUCnX0saijhe4gdsdogKzSpTF ZxZFo0ZIi7TMImyQbiHsMeARX 0 HhY9SRB5yDGswR1lrYuytafzg G9wOyc+QqfujNeqZZW0WWv0N5 WrFlt9JIFhhTdsBM7qvCLvPBd u Sb6nmNgxcNhiPC7nIZRweevtc 326JwHmo2lyRVBwoOPzEZmuBI G2E14ca7T5UCYxULPkMPH8jRW 4 mZ3bbIngwsxvoWAvlWudliBfh RedKCaePEvqN059TURgvRxoLo HrSMj2C2BhSos6HRKhtNogGQ3 n cIYgSZfvEp8drZpitJyzKR2bW DQyikonl278XwYsk5ggWYTlgI FlAPhwVJF0L86jn0T4KSLqARM w NNH8bNY2nJ9qnSclenzvpCZnr KdgmcEspEqaSUbgSXqdJ354KF KaqZqkHhGtjZg3A3KhOii8BBB z dSzkPU0wxWMbAXggIc6qsHyqo GejQY4hHRXqlwuor557MnHwm8 mpEVTkjBIvYQbxTNB3C03kc3O 6 MGZjYZPpJUB3hGQ2yV7naHotq jogbGVmdDsgdmVydGljYWwtYW byR195TXOfkGazWuTgkErhpmU g OBtbCCn5P8LrEtrjyVS+PC90Y BFeJI88pSUznCMpk4svmUx1Al VjUXDbHZE1aLspOZerz5AdSAI t Q86xqPBmy0K6LESvlSzskINxM tOjbSW9uF0uBMuadxvlo6wewa kgSvzaj3zlte44cG35L19eSJs p MUWhZSYsWNUiLNHraLsmeq6lq G9wIi8+IHWrpZB7uFJ0gO4nVY ZcPhJ7DVolO326LwOpeEZdEul j f1bsw8ivrFc4DvU2NAOemzQkk RehQZR5i0WdMl08E30wJCeaUJ IxVQGdPQOrLMYtlXzkuu1zeR0 w Ii8+NNFdrQL5bAW9mX3wRqRuR kY3NOwhZ593TmFpaRTtStmgE2 9cN2BplLS+AQOyNbx1QZCtoLc s JU9ziCToWTvgQf5mVSO9WhDrX zIdIZhnW2KtIWJqlpqhggoppE U3OVXpXGNzsI78Ga5xuJweHRQ w pXKLkD9bzzcye8ydtclnIzMoQ QKcWNc7EEi5CLNsmWzyKyXeRA K5KxR8JVR4nRVrpX5imIgdsrb g oU8qF0FxJGAqhyioDr61mT5zY aPjDpX1VZrtWgm+D9bUS05UWG WTLLBKMQ7YSGGHWSnLHfihxFR + GRYwINX0pViqGQrwONXolI7kK SDyP1s9GqNdOoY6KOssB8JzZV SeotwfBz01nI0gLeBiOtU5YEe u S2ZfffU1BDBmqBKwSRmtERX0H 21ef6Z6OKTuFITyCMA3sLS3gR 1hbGlnbjogbGVmdDsgdmVydGl j RYtdVQzmK000XWPsePywBuXyU hX3UuQ7GJW6V4OsZql5UWLxeZ jbDS0ufIUfNTgcSq9elNvadCd g SP8fACNwetodPSUjyY7mIEMud OXmvEijDX8hWZOkbuzmv814Av GvXDQ6WFFozQEiF0GoqQ4rOzT j MYQwORVuR4RmlMQxRUrfN033L QipRmF4PDAsrwWdZ1BjIMIrsQ ylNtV5c4Z0Yp4zFjLSDQLfkjy v dGQ+TSBxDHF6wIzrWCvuTXJcf C7eCGMmQ6f9ZmZbRfK4NYklI4 JrLKIpelvhZt33iU9fTcWcCeU 1 XXdxC0YmexS0FGMqbQKzHRdlN UZ4X08fg7W2MAEkWGOoJIV0oY K2vZ0xrWrjbeefgSAziWclskZ y pEnzAOzkHPjuC230WPJueAhaB kZFTUFMRTwvdGQ+BZQpOJP2qE wlEBbqQSLwbB4pHUOwT6v7AlC w VyM5YRlzJ0LtKYVfdixjFc59p G4mZzCpCcT0OCsaM7ItkjN3NO AhuGBzFOsvLNW2Q18lw9L2WHA w ZCXqKHE6gZL8tC0hbDahwgdno GVmdDsgdmVydGljYWwtYWxpZ2 60BMFceTozSh7JRJ66AR38L3U y PjwvdGFibGU+PHRhYmxlIHdpZ OYoFUuwEALgJrVskWzaWX2bRh 0uEVEeYEImoSxpoAWwOtIxf2x s SEZsERgzGY1rdAciF4RnvLR6L IJug1o9Xf43F91yJ3DjiNW+PG JtfFW8bFX9hV3tPqQdCqH0ZVj p U604NvFhdSVrFioxc3dnl9aal Sx4UfOmBBLtsuKjoYkcISZ4l2 BaQf61M45vSWykWDTyOMVyDNE i IBKdtVvlpa8gwP1bZl0+PGNvb DT1vAT6iB8iYmDmKyO9KUlgI2 36YtDqlJHxPkzrV38yY8WxfPN + LQZyOtz6KNFgyVpeLK9xoPSiF QqvYf5eSDZ7RzBnUyXgMSsnC6 PxUVHgivzbkpbjjJA6MEXgXNL w oK96Nx7vdEikXp4nRECkOTW4V ISvqOOhF7DtxV0mOdUgXNQgTY IdC8GltFYwQXkfI591LEdyFxC 7 YDQrdxBcM6NlNIUlyNelAnV7h 6Z3Fw2JaUpzfAJdZH7wZbPcYP a1K0ZjGtt8SXMwuVmkIU8abVW k OHugKj5lmWvwlRlgZC2cQJQes lfvr065VwIwg9kyPQJdyOWoPN zxYDU6K09qh5I7XTSqJOVzNJF 7 eKQ3wK1boLfnxguokFFniHjnl gZbiGmaOYeyFIrmP924BASazA uzIxRWMre7K4JlDwv8YVFefPb s LM9xaVVcPHomZn5vdTcrgOaqQ D9tRUQtontlk285MuSch0mcJD CtqKNtRGddWAH7N46vk3B3GEM w LFPmRIU6bIU6uD9nwRcqmvhfw GVmdDsgdmVydGljYWwtYWxpZ2 92UJEbpGpkGv4CXbj6K4JkQgk 0 WAWboQitLB9lcDFyHYbxEz7xr SxcmMipTK8zIXWdtpulj722Co Ixv9dlHSKqoOUeKUrqYJG2J09 s w4Z4BBUtUPIpYKN3dDF6tH5fq GlnbjogbGVmdDsgdmVydGljYW hsDXbbV261LEIkfAupLkFbaUQ y OjwvdGQ+GN11zx83X2GdWsuuO ak9NSNgTPA5eUC6hD7mSLFpVZ slk6G2wXJ8F1RgxgPnei2iq4k s YXB (more content not included)... Normal [facility] Amphetamine Screen Ql (U)Ord ered By: Jonathan Monahan on 12-08-2022 Amphetamines Ql (U) Negative Negative [facility] Barbiturates [Presence] in U rine by Screen methodOrdered By: Jonathan Monahan on 12-08-2022 Barbiturates Screen Ql (U) Negative Negative [facility] Benzodiazepines Screen Ql (U )Ordered By: Jonathan Monahan on 12-08-2022 Benzodiazepines Ql (U) Negative Negative [facility] Benzoylecgonine [Presence] i n Urine by Screen methodOrdered By: Jonathan Monahan on 12-08-2022 Benzoylecgonine Screen Ql (U) Negative Negative [facility] Bilirubin Auto test strip Ql (U)Ordered By: Jonathan Monahan on 12-08-2022 Bilirubin Ql (U) Negative Negative [facility] fibronectinOrdered By: Jonathan Monahan on 12-08-2022 Fibronectin. (Vag fld) [Mass/Vol] Negative Negative [facility] Ketones Auto test strip (U) [Mass/Vol]Ordered By: Jonathan Monahan on 12-08-2022 Ketones (U) [Mass/Vol] Negative Negative [facility] No Panel InformationOrdered By: Jonathan Monahan on 12-08-2022 Membranes Rupture (PAMG-1) Negative Negative [facility] Opiates [Presence] in Urine by Screen methodOrdered By: Jonathan Monahan on 12-08-2022 Opiates Screen Ql (U) Negative Negative [facility] Phencyclidine Screen Ql (U)O rdered By: Jonathan Monahan on 12-08-2022 Phencyclidine Ql (U) Negative Negative [facility] Comment on above: These are unconfirme d results and should not be used for legal purposes. Drug Cut-Off Concentration: AMPH 1000 ng/mL FIONA 200 ng/mL KIMMY 200 ng/mL COCM 300 ng/mL OP 300 ng/mL PCP 25 ng/mL Protein Auto test strip (U) [Mass/Vol]Ordered By: Jonathan Monahan on 12-08-2022 Protein (U) [Mass/Vol] Negative Negative [facility] Urine appearanceOrdered By: Jonathan Monahan on 12-08-2022 Appearance (U) Clear Clear [facility] Urine colorOrdered By: Michaelle Monahan on 12-08-2022 Color (U) Yellow Yellow [facility] Urine glucose measurement by automated test strip (mass/volume)Ordered By: Jonathan Monahan on 12-08-2022 Glucose Auto test strip (U) [Mass/Vol] Normal mg/dL Normal [facility] Urine hemoglobin detection b y automated test stripOrdered By: Jonathan Monahan on 12-08-2022 Hemoglobin Auto test strip Ql (U) Negative Negative [facility] Urine leukocyte esterase det ection by automated test stripOrdered By: Jonathan Monahan on 12-08-2022 Leukocyte esterase Auto test strip Ql (U) Negative Negative [facility] Urine nitrite detection by a utomated test stripOrdered By: Jonathan Monahan on 12-08-2022 Nitrite Auto test strip Ql (U) Negative Negative [facility] Urobilinogen Auto test strip (U) [Mass/Vol]Ordered By: Jonathan Monahan on 12-08-2022 Urobilinogen (U) [Mass/Vol] Normal mg/dL Normal [facility] pH Auto test strip (U)Ordere d By: Jonathan Monahan on 12-08-2022 pH (U) 1.005 [pH] 1.001-1.030 [facility] pH (U) 7.0 [pH] 5.0-9.0 [facility] Amphetamine Screen Ql (U)Ord ered By: Jonathan Monahan on 11-20-2022 Amphetamines Ql (U) Negative Negative [facility] Automated erythrocytes count in urine sediment (number/area)Ordered By: Jonathan Monahan on 11-20-2022 RBC Auto (Urine sed) [#/Area] 1-2 [HPF] 0-4 [facility] Automated leukocytes count i n urine sediment (number/area)Ordered By: Jonathan Monahan on 11-20-2022 WBC Auto (Urine sed) [#/Area] 1-2 [HPF] 0-4 [facility] Barbiturates [Presence] in U rine by Screen methodOrdered By: Jonathan Monahan on 11-20-2022 Barbiturates Screen Ql (U) Negative Negative [facility] Benzodiazepines Screen Ql (U )Ordered By: Jonathan Monahan on 11-20-2022 Benzodiazepines Ql (U) Negative Negative [facility] Benzoylecgonine [Presence] i n Urine by Screen methodOrdered By: Jonathan Monahan on 11-20-2022 Benzoylecgonine Screen Ql (U) Negative Negative [facility] Bilirubin Test strip Ql (U)O rdered By: Jonathan Monahan on 11-20-2022 Bilirubin Ql (U) Negative Negative [facility] Color Auto (U)Ordered By: Hola Monahan on 11-20-2022 Color (U) Yellow Yellow [facility] fibronectinOrdered By: Jonathan Monahan on 11-20-2022 Fibronectin. (Vag fld) [Mass/Vol] Negative Negative [facility] Ketones Auto test strip (U) [Mass/Vol]Ordered By: Jonathan Monahan on 11-20-2022 Ketones (U) [Mass/Vol] Trace Negative [facility] Laboratory - UrinalysisOrder ed By: Jonathan Monahan on 11-20-2022 Hyaline casts LM Ql (Urine sed) 0-8 [LPF] 0-8 [facility] Nitrite Test strip Ql (U)Ord ered By: Jonathan Monahan on 11-20-2022 Nitrite Ql (U) Negative Negative [facility] No Panel InformationOrdered By: Jonathan Monahan on 11-20-2022 Membranes Rupture (PAMG-1) Negative Negative [facility] Opiates [Presence] in Urine by Screen methodOrdered By: Jonathan Monahan on 11-20-2022 Opiates Screen Ql (U) Negative Negative [facility] Phencyclidine Screen Ql (U)O rdered By: Jonathan Monahan on 11-20-2022 Phencyclidine Ql (U) Negative Negative [facility] Comment on above: These are unconfirme d results and should not be used for legal purposes. Drug Cut-Off Concentration: AMPH 1000 ng/mL FIONA 200 ng/mL KIMMY 200 ng/mL COCM 300 ng/mL OP 300 ng/mL PCP 25 ng/mL Protein Auto test strip (U) [Mass/Vol]Ordered By: Jonathan Monahan on 11-20-2022 Protein (U) [Mass/Vol] Trace mg/dL Negative [facility] Specific gravity Auto test s trip (U) [Rel density]Ordered By: Jonathan Monahan on 11-20-2022 Specific gravity (U) [Rel density] 1.016 1.001-1.030 [facility] Squamous epithelial cells de tection in urine sediment by light microscopyOrdered By: Jonathan Monahan on 11-20-2022 Epithelial cells.squamous LM Ql (Urine sed) 1-2 [HPF] 0-2 [facility] Urine bacteria detection by automated methodOrdered By: Jonathan Monahan on 11-20-2022 Bacteria Auto Ql (U) None seen None Seen [facility] Urine clarity by refractomet ry automatedOrdered By: Jonathan Monahan on 11-20-2022 Clarity Refractometry automated (U) Clear Clear [facility] Urine glucose measurement by automated test strip (mass/volume)Ordered By: Jonathan Monahan on 11-20-2022 Glucose Auto test strip (U) [Mass/Vol] Normal mg/dL Normal [facility] Urine hemoglobin detection b y automated test stripOrdered By: Jonathan Monahan on 11-20-2022 Hemoglobin Auto test strip Ql (U) Negative Negative [facility] Urine leukocyte esterase det ection by automated test stripOrdered By: Jonathan Monahan on 11-20-2022 Leukocyte esterase Auto test strip Ql (U) Negative Negative [facility] Urobilinogen Auto test strip (U) [Mass/Vol]Ordered By: Jonathan Monahan on 11-20-2022 Urobilinogen (U) [Mass/Vol] Normal mg/dL Normal [facility] pH Auto test strip (U)Ordere d By: Jonathan Monahan on 11-20-2022 pH (U) 5.5 [pH] 5.0-9.0 [facility] Amphetamine Screen Ql (U)Ord ered By: JUANY CHOI on 11-03-2022 Amphetamines Ql (U) Negative Negative [facility] Barbiturates [Presence] in U rine by Screen methodOrdered By: JUANY CHOI on 11-03-2022 Barbiturates Screen Ql (U) Negative Negative [facility] Benzodiazepines Screen Ql (U )Ordered By: JUANY CHOI on 11-03-2022 Benzodiazepines Ql (U) Negative Negative [facility] Benzoylecgonine [Presence] i n Urine by Screen methodOrdered By: JUANY CHOI on 11-03-2022 Benzoylecgonine Screen Ql (U) Negative Negative [facility] Bilirubin Test strip Ql (U)O rdered By: JUANY CHOI on 11-03-2022 Bilirubin Ql (U) Negative Negative [facility] Color Auto (U)Ordered By: LEIDA CHOI on 11-03-2022 Color (U) Yellow Yellow [facility] Ketones Auto test strip (U) [Mass/Vol]Ordered By: JUANY CHOI on 11-03-2022 Ketones (U) [Mass/Vol] Negative Negative [facility] Nitrite Test strip Ql (U)Ord ered By: JUANY CHOI on 11-03-2022 Nitrite Ql (U) Negative Negative [facility] No Panel InformationOrdered By: JUANY CHOI on 11-03-2022 Membranes Rupture (PAMG-1) Negative Negative [facility] Opiates [Presence] in Urine by Screen methodOrdered By: JUANY CHOI on 11-03-2022 Opiates Screen Ql (U) Negative Negative [facility] Phencyclidine Screen Ql (U)O rdered By: JUANY CHOI on 11-03-2022 Phencyclidine Ql (U) Negative Negative [facility] Comment on above: These are unconfirme d results and should not be used for legal purposes. Drug Cut-Off Concentration: AMPH 1000 ng/mL FIONA 200 ng/mL KIMMY 200 ng/mL COCM 300 ng/mL OP 300 ng/mL PCP 25 ng/mL Protein Auto test strip (U) [Mass/Vol]Ordered By: JUANY CHOI on 11-03-2022 Protein (U) [Mass/Vol] Negative Negative [facility] Specific gravity Auto test s trip (U) [Rel density]Ordered By: JUANY CHOI on 11-03-2022 Specific gravity (U) [Rel density] 1.013 1.001-1.030 [facility] Urine clarity by refractomet ry automatedOrdered By: JUANY CHOI on 11-03-2022 Clarity Refractometry automated (U) Clear Clear [facility] Urine glucose measurement by automated test strip (mass/volume)Ordered By: JUANY CHOI on 11-03-2022 Glucose Auto test strip (U) [Mass/Vol] Normal mg/dL Normal [facility] Urine hemoglobin detection b y automated test stripOrdered By: JUANY CHOI on 11-03-2022 Hemoglobin Auto test strip Ql (U) Negative Negative [facility] Urine leukocyte esterase det ection by automated test stripOrdered By: JUANY CHOI on 11-03-2022 Leukocyte esterase Auto test strip Ql (U) Negative Negative [facility] Urobilinogen Auto test strip (U) [Mass/Vol]Ordered By: JUANY CHOI on 11-03-2022 Urobilinogen (U) [Mass/Vol] Normal mg/dL Normal [facility] pH Auto test strip (U)Ordere d By: JUANY CHOI on 11-03-2022 pH (U) 7.0 [pH] 5.0-9.0 [facility] Vital Signs Date Time Vital Sign Value Performing Clinician Facility 11-16-2024 07:30-0400 Body temperature 97.7 [degF] PHYSICIAN NO [facility] 11-16-2024 07:30-0400 Diastolic blood pressure 87 mm[Hg] PHYSICIAN NO [facility] 11-16-2024 07:30-0400 Heart rate 102 /min PHYSICIAN NO [facility] 11-16-2024 07:30-0400 Respiratory rate 15 /min PHYSICIAN NO [facility] 11-16-2024 07:30-0400 SaO2% (BldA) [Mass fraction] 99 % PHYSICIAN NO [facility] 11-16-2024 07:30-0400 Systolic blood pressure 122 mm[Hg] PHYSICIAN NO [facility] 11-15-2024 14:56-0400 Body height 160.02 cm PHYSICIAN NO [facility] 11-15-2024 00:35-0400 Body weight 68.1 kg PHYSICIAN NO [facility] 11-14-2024 23:16-0400 Diastolic blood pressure 70 mm[Hg] PHYSICIAN NO [facility] 11-14-2024 23:16-0400 Heart rate 68 /min PHYSICIAN NO [facility] 11-14-2024 23:16-0400 Respiratory rate 21 /min PHYSICIAN NO [facility] 11-14-2024 23:16-0400 SaO2% (BldA) [Mass fraction] 97 % PHYSICIAN NO [facility] 11-14-2024 23:16-0400 Systolic blood pressure 109 mm[Hg] PHYSICIAN NO [facility] 11-14-2024 21:38-0400 Body height 160.02 cm PHYSICIAN NO [facility] 11-14-2024 21:38-0400 Body temperature 98.5 [degF] PHYSICIAN NO [facility] 11-14-2024 21:38-0400 Body weight 68.1 kg PHYSICIAN NO [facility] 11-10-2024 07:30-0400 Body temperature 97.5 [degF] PHYSICIAN NO [facility] 11-10-2024 07:30-0400 Diastolic blood pressure 85 mm[Hg] PHYSICIAN NO [facility] 11-10-2024 07:30-0400 Heart rate 93 /min PHYSICIAN NO [facility] 11-10-2024 07:30-0400 Respiratory rate 16 /min PHYSICIAN NO [facility] 11-10-2024 07:30-0400 SaO2% (BldA) [Mass fraction] 99 % PHYSICIAN NO [facility] 11-10-2024 07:30-0400 Systolic blood pressure 127 mm[Hg] PHYSICIAN NO [facility] 11-07-2024 14:44-0400 Body height 160.02 cm PHYSICIAN NO [facility] 11-07-2024 03:45-0400 Body weight 65.7 kg PHYSICIAN NO [facility] 11-07-2024 01:45-0400 Body temperature 98.6 [degF] PHYSICIAN NO [facility] 11-07-2024 01:45-0400 Diastolic blood pressure 57 mm[Hg] PHYSICIAN NO [facility] 11-07-2024 01:45-0400 Heart rate 64 /min PHYSICIAN NO [facility] 11-07-2024 01:45-0400 Respiratory rate 17 /min PHYSICIAN NO [facility] 11-07-2024 01:45-0400 SaO2% (BldA) [Mass fraction] 98 % PHYSICIAN NO [facility] 11-07-2024 01:45-0400 Systolic blood pressure 101 mm[Hg] PHYSICIAN NO [facility] 11-06-2024 21:23-0400 Body height 160.02 cm PHYSICIAN NO [facility] 11-06-2024 21:23-0400 Body weight 65.7 kg PHYSICIAN NO [facility] 11-06-2024 15:52-0400 Body mass index (BMI) [Ratio] 23.76 kg/m2 Michael Gurrola MD Work Phone: [facility] 11-06-2024 15:52-0400 Body weight 65.77 kg Michael Gurrola MD Work Phone: [facility] 11-06-2024 15:52-0400 Diastolic blood pressure 64 mm[Hg] Michael Gurrola MD Work Phone: [facility] 11-06-2024 15:52-0400 Systolic blood pressure 110 mm[Hg] Michael Gurrola MD Work Phone: [facility] 09-11-2024 13:23-0400 Body mass index (BMI) [Ratio] 24.75 kg/m2 Michael Gurrola MD Work Phone: [facility] 09-11-2024 13:23-0400 Body weight 68.49 kg Michael Gurrola MD Work Phone: [facility] 09-11-2024 13:23-0400 Diastolic blood pressure 78 mm[Hg] Michael Gurrola MD Work Phone: [facility] 09-11-2024 13:23-0400 Systolic blood pressure 124 mm[Hg] Michael Gurrola MD Work Phone: [facility] 07-22-2024 12:36-0500 Body height 160.02 cm [facility] 07-22-2024 12:36-0500 Body mass index (BMI) [Ratio] 19.5 kg/m2 [facility] 07-22-2024 12:36-0500 Body temperature 97.9 [degF] [facility] 07-22-2024 12:36-0500 Body weight 50.12 kg [facility] 07-22-2024 12:36-0500 Diastolic blood pressure 71 mm[Hg] [facility] 07-22-2024 12:36-0500 Heart rate 76 /min [facility] 07-22-2024 12:36-0500 Respiratory rate 17 /min [facility] 07-22-2024 12:36-0500 SaO2% (BldA) [Mass fraction] 97 % [facility] 07-22-2024 12:36-0500 Systolic blood pressure 121 mm[Hg] [facility] 07-10-2024 14:08-0500 Body mass index (BMI) [Ratio] 25.56 kg/m2 Michael Gurrola MD Work Phone: [facility] 07-10-2024 14:08-0500 Body weight 70.76 kg Michael Gurrola MD Work Phone: [facility] 07-10-2024 14:08-0500 Diastolic blood pressure 78 mm[Hg] Michael Gurrola MD Work Phone: [facility] 07-10-2024 14:08-0500 Systolic blood pressure 118 mm[Hg] Michael Gurrola MD Work Phone: [facility] 04-16-2024 07:32-0400 Body temperature 97.39 [degF] Cristiano Singh MD Work Phone: [facility] 04-16-2024 07:32-0400 Diastolic blood pressure 63 mm[Hg] Cristiano Singh MD Work Phone: [facility] [employer] 04-16-2024 07:32-0400 Heart rate 67 /min Cristiano Singh MD Work Phone: [facility] 04-16-2024 07:32-0400 Respiratory rate 16 /min Cristiano Singh MD Work Phone: [facility] 04-16-2024 07:32-0400 SaO2% (BldA) [Mass fraction] 100 % Cristiano Singh MD Work Phone: [facility] 04-16-2024 07:32-0400 Systolic blood pressure 111 mm[Hg] Cristiano Singh MD Work Phone: [facility] 04-16-2024 03:28-0400 Body mass index (BMI) [Ratio] 28.27 kg/m2 Cristiano Singh MD Work Phone: [facility] 04-16-2024 03:28-0400 Body weight 72.4 kg Cristiano Singh MD Work Phone: [facility] 04-11-2024 06:20-0400 Body height 160 cm Cristiano Singh MD Work Phone: [facility] 04-09-2024 10:44-0400 Diastolic blood pressure 66 mm[Hg] Tyrone Benito DO Work Phone: [facility] 04-09-2024 10:44-0400 Systolic blood pressure 107 mm[Hg] Tyrone Benito DO Work Phone: [facility] 04-09-2024 10:42-0400 Body mass index (BMI) [Ratio] 27.1 kg/m2 Tyrone Benito DO Work Phone: [facility] 04-09-2024 10:42-0400 Body temperature 98.01 [degF] Tyrone Ellis DO Work Phone: [facility] [email or web address] 04-09-2024 10:42-0400 Body weight 69.4 kg Tyrone Benito DO Work Phone: [facility] [employer] 04-09-2024 10:42-0400 Heart rate 92 /min Tyrone Benito DO Work Phone: [facility] [email or web address] 04-09-2024 10:42-0400 Respiratory rate 16 /min Tyrone Benito DO Work Phone: [email or web address] 04-09-2024 10:42-0400 SaO2% (BldA) [Mass fraction] 100 % Tyrone Benito DO Work Phone: [facility] [employer] 04-02-2024 14:15-0400 Diastolic blood pressure 49 mm[Hg] Tyrone Benito DO Work Phone: [facility] [email or web address] 04-02-2024 14:15-0400 SaO2% (BldA) [Mass fraction] 99 % Tyrone Mondragonis DO Work Phone: [facility] [employer] 04-02-2024 14:15-0400 Systolic blood pressure 101 mm[Hg] Tyrone Mondragonis DO Work Phone: [facility] [employer] 04-02-2024 13:30-0400 Heart rate 51 /min Tyrone Benito DO Work Phone: [email or web address] 04-02-2024 13:30-0400 Respiratory rate 16 /min Tyrone Benito DO Work Phone: [facility] [employer] 04-02-2024 09:13-0400 Body mass index (BMI) [Ratio] 27.28 kg/m2 Tyrone Benito DO Work Phone: [facility] [employer] 04-02-2024 09:13-0400 Body temperature 97.9 [degF] Tyrone Benito DO Work Phone: [facility] 04-02-2024 09:13-0400 Body weight 69.85 kg Tyrone Benito DO Work Phone: [facility] [employer] 03-17-2024 12:14-0400 Diastolic blood pressure 84 mm[Hg] Prudence Wong MD Work Phone: [employer] 03-17-2024 12:14-0400 SaO2% (BldA) [Mass fraction] 100 % Prudence Wong MD Work Phone: [employer] 03-17-2024 12:14-0400 Systolic blood pressure 125 mm[Hg] Prudence Wong MD Work Phone: [employer] 03-17-2024 10:10-0400 Body temperature 98.1 [degF] Prudence Wong MD Work Phone: [employer] 03-17-2024 10:10-0400 Heart rate 102 /min Prudence Wong MD Work Phone: [employer] 03-17-2024 10:10-0400 Respiratory rate 16 /min Prudence Wong MD Work Phone: [employer] 02-15-2024 14:26-0400 Body height 160 cm [facility] 02-15-2024 14:26-0400 Body mass index (BMI) [Ratio] 28.54 kg/m2 [facility] 02-15-2024 14:26-0400 Body weight 73.07 kg [facility] 02-15-2024 14:26-0400 Diastolic blood pressure 70 mm[Hg] [facility] 02-15-2024 14:26-0400 Systolic blood pressure 128 mm[Hg] [facility] 02-07-2024 15:50-0400 Diastolic blood pressure 76 mm[Hg] Melida Huang 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 Work 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: [employer] 02-07-2024 15:50-0400 Heart rate 64 /min [facility] Work Phone: [employer] 02-07-2024 15:50-0400 SaO2% (BldA) [Mass fraction] 98 % [facility] Work Phone: [employer] 02-07-2024 15:50-0400 Systolic blood pressure 126 mm[Hg] [facility] Work Phone: [employer] 02-07-2024 10:55-0400 Body height 160 cm [facility] Work Phone: [employer] 02-07-2024 10:55-0400 Body mass index (BMI) [Ratio] 28.34 kg/m2 [facility] Work Phone: [employer] 02-07-2024 10:55-0400 Body temperature 98.71 [degF] Melida Huang [facility] Work Phone: [employer] 02-07-2024 10:55-0400 Body weight 72.58 kg [facility] Work Phone: [employer] 02-07-2024 10:55-0400 Respiratory rate 16 /min [facility] Work Phone: [employer] 02-03-2024 20:38-0400 Body height 160 cm Jess Daigle DO Work Phone: [employer] 02-03-2024 20:38-0400 Body mass index (BMI) [Ratio] 28.7 kg/m2 Jess Daigle DO Work Phone: [employer] 02-03-2024 20:38-0400 Body temperature 98.1 [degF] Jess Daigle DO Work Phone: [employer] 02-03-2024 20:38-0400 Body weight 73.48 kg Jess Daigle DO Work Phone: [employer] 02-03-2024 20:38-0400 Diastolic blood pressure 70 mm[Hg] Jess Daigle DO Work Phone: [employer] 02-03-2024 20:38-0400 Heart rate 84 /min Jess Daigle DO Work Phone: [employer] 02-03-2024 20:38-0400 Respiratory rate 16 /min Jess Daigle DO Work Phone: [employer] 02-03-2024 20:38-0400 SaO2% (BldA) [Mass fraction] 99 % Jess Daigle DO Work Phone: [employer] 02-03-2024 20:38-0400 Systolic blood pressure 116 mm[Hg] Jess Daigle DO Work Phone: [employer] 01-22-2024 14:41-0400 Body mass index (BMI) [Ratio] 28.86 kg/m2 [facility] 01-22-2024 14:41-0400 Body temperature 98.71 [degF] [address] 01-22-2024 14:41-0400 Body weight 73.[address] 01-22-2024 14:41-0400 Diastolic blood pressure 58 mm[Hg] [address] 01-22-2024 14:41-0400 Systolic blood pressure 102 mm[Hg] [address] 01-08-2024 14:52-0400 Heart rate 88 /min PHYSICIAN NO [facility] 01-08-2024 14:52-0400 Respiratory rate 16 /min PHYSICIAN NO [facility] 01-08-2024 14:52-0400 SaO2% (BldA) [Mass fraction] 97 % PHYSICIAN NO [facility] 01-08-2024 12:38-0400 Body height 160.02 cm PHYSICIAN NO [facility] 01-08-2024 12:38-0400 Body temperature 99.8 [degF] PHYSICIAN NO [facility] 01-08-2024 12:38-0400 Body weight 73 kg PHYSICIAN NO [facility] 01-08-2024 12:38-0400 Diastolic blood pressure 72 mm[Hg] PHYSICIAN NO [facility] 01-08-2024 12:38-0400 Systolic blood pressure 118 mm[Hg] PHYSICIAN NO [facility] 11-20-2023 16:30-0400 Diastolic blood pressure 65 mm[Hg] Mickiemo Willtrong DO Work Phone: [facility] [employer] 11-20-2023 16:30-0400 Heart rate 64 /min Mickiemo Pecky La DO Work Phone[facility] 11-20-2023 16:30-0400 Respiratory rate 20 /min Mickiemo Pecky La DO Work Phone: [employer] 11-20-2023 16:30-0400 SaO2% (BldA) [Mass fraction] 99 % Mickiemo Pecky La DO Work Phone: [employer] 11-20-2023 16:30-0400 Systolic blood pressure 120 mm[Hg] Mickiemo Pecky La DO Work Phone: [employer] 11-20-2023 11:58-0400 Body temperature 97.2 [degF] Mickiemo Pecky La DO Work Phone: [employer] 11-20-2023 11:46-0400 Body height 160 cm Mickie Radha La DO Work Phone: [employer] 11-20-2023 11:46-0400 Body mass index (BMI) [Ratio] 30.01 kg/m2 Mickie Radha La DO Work Phone: [employer] 11-20-2023 11:46-0400 Body weight 76.84 kg Mickie La DO Work Phone: [employer] 08-15-2023 20:57-0500 Heart rate 90 /min Sage Andes DO Work Phone: [employer] 08-15-2023 20:57-0500 Respiratory rate 18 /min Sage Andes DO Work Phone: [employer] 08-15-2023 20:57-0500 SaO2% (BldA) [Mass fraction] 97 % Sage Andes DO Work Phone: [employer] 08-15-2023 20:42-0500 Diastolic blood pressure 50 mm[Hg] Sage Andes DO Work Phone: [employer] 08-15-2023 20:42-0500 Systolic blood pressure 108 mm[Hg] Sage Andes DO Work Phone: [employer] 08-15-2023 19:40-0500 Body height 160 cm Sage Andes DO Work Phone: [employer] 08-15-2023 19:40-0500 Body mass index (BMI) [Ratio] 30.11 kg/m2 Sage Andes DO Work Phone: [employer] 08-15-2023 19:40-0500 Body temperature 98.91 [degF] Sage Andes DO Work Phone: [employer] 08-15-2023 19:40-0500 Body weight 77.11 kg Sage Andes DO Work Phone: [employer] 07-25-2023 10:50-0500 Diastolic blood pressure 61 mm[Hg] Kisha Rangel MD Work Phone: [employer] 07-25-2023 10:50-0500 Heart rate 96 /min Kisha Rangel MD Work Phone: [employer] 07-25-2023 10:50-0500 Respiratory rate 18 /min Kisha Rangel MD Work Phone: [employer] 07-25-2023 10:50-0500 SaO2% (BldA) [Mass fraction] 97 % Kisha [facility]angel MD [facility] 07-25-2023 10:50-0500 Systolic blood pressure 104 mm[Hg] Kisha Rangel MD Work Phone: [employer] 07-25-2023 09:45-0500 Body temperature 98.01 [degF] Kisha Rangel MD Work Phone: [employer] 07-25-2023 08:21-0500 Body height 160 cm Kisha [facility]angel MD [facility] 07-25-2023 08:21-0500 Body mass index (BMI) [Ratio] 33.55 kg/m2 Kisha Rangel MD Work Phone: [facility] 07-25-2023 08:21-0500 Body weight 85.91 kg Kisha Rangel MD Work Phone: [facility] 02-27-2023 08:45-0400 Body temperature 98.2 [degF] PHYSICIAN NO [facility] 02-27-2023 08:45-0400 Diastolic blood pressure 83 mm[Hg] PHYSICIAN NO [facility] 02-27-2023 08:45-0400 Heart rate 75 /min PHYSICIAN NO [facility] 02-27-2023 08:45-0400 Respiratory rate 18 /min PHYSICIAN NO [facility] 02-27-2023 08:45-0400 SaO2% (BldA) [Mass fraction] 98 % PHYSICIAN NO [facility] 02-27-2023 08:45-0400 Systolic blood pressure 119 mm[Hg] PHYSICIAN NO [facility] 02-26-2023 20:35-0400 Body weight 92.98 kg PHYSICIAN NO [facility] 02-26-2023 17:40-0400 Body height 160.02 cm PHYSICIAN NO [facility] 02-25-2023 18:28-0400 Respiratory rate 18 /min PHYSICIAN NO [facility] 02-25-2023 18:20-0400 Diastolic blood pressure 50 mm[Hg] PHYSICIAN NO [facility] 02-25-2023 18:20-0400 Heart rate 82 /min PHYSICIAN NO [facility] 02-25-2023 18:20-0400 Systolic blood pressure 91 mm[Hg] PHYSICIAN NO [facility] 02-25-2023 16:00-0400 Body height 160.02 cm PHYSICIAN NO [facility] 02-25-2023 16:00-0400 Body temperature 96.4 [degF] PHYSICIAN NO [facility] 02-25-2023 16:00-0400 Body weight 92.98 kg PHYSICIAN NO [facility] 02-22-2023 17:00-0400 Respiratory rate 20 /min PHYSICIAN NO [facility] 02-22-2023 15:30-0400 SaO2% (BldA) [Mass fraction] 98 % PHYSICIAN NO [facility] 02-22-2023 15:06-0400 Body height 160.02 cm PHYSICIAN NO [facility] 02-22-2023 15:06-0400 Body weight 92.98 kg PHYSICIAN NO [facility] 02-22-2023 14:44-0400 Body temperature 97.7 [degF] PHYSICIAN NO [facility] 02-22-2023 14:42-0400 Diastolic blood pressure 73 mm[Hg] PHYSICIAN NO [facility] 02-22-2023 14:42-0400 Heart rate 104 /min PHYSICIAN NO [facility] 02-22-2023 14:42-0400 Systolic blood pressure 112 mm[Hg] PHYSICIAN NO [facility] 02-19-2023 14:04-0400 Respiratory rate 18 /min PHYSICIAN NO [facility] 02-19-2023 12:16-0400 Body temperature 97.2 [degF] PHYSICIAN NO [facility] 02-19-2023 11:36-0400 SaO2% (BldA) [Mass fraction] 97 % PHYSICIAN NO [facility] 02-19-2023 11:31-0400 Body height 160.02 cm PHYSICIAN NO [facility] 02-19-2023 11:31-0400 Body weight 92.98 kg PHYSICIAN NO [facility] 02-19-2023 11:28-0400 Diastolic blood pressure 74 mm[Hg] PHYSICIAN NO [facility] 02-19-2023 11:28-0400 Heart rate 110 /min PHYSICIAN NO [facility] 02-19-2023 11:28-0400 Systolic blood pressure 115 mm[Hg] PHYSICIAN NO [facility] 02-17-2023 19:23-0400 Respiratory rate 16 /min PHYSICIAN NO [facility] 02-17-2023 18:02-0400 Diastolic blood pressure 68 mm[Hg] PHYSICIAN NO [facility] 02-17-2023 18:02-0400 Heart rate 99 /min PHYSICIAN NO [facility] 02-17-2023 18:02-0400 Systolic blood pressure 108 mm[Hg] PHYSICIAN NO [facility] 02-17-2023 17:58-0400 Body height 160.02 cm PHYSICIAN NO [facility] 02-17-2023 17:58-0400 Body weight 92.98 kg PHYSICIAN NO [facility] 02-07-2023 17:30-0400 Respiratory rate 16 /min PHYSICIAN NO [facility] 02-07-2023 16:28-0400 SaO2% (BldA) [Mass fraction] 97 % PHYSICIAN NO [facility] 02-07-2023 16:25-0400 Body height 160.02 cm PHYSICIAN NO [facility] 02-07-2023 16:25-0400 Body weight 92.98 kg PHYSICIAN NO [facility] 02-07-2023 16:23-0400 Body temperature 97 [degF] PHYSICIAN NO [facility] 02-07-2023 16:23-0400 Diastolic blood pressure 72 mm[Hg] PHYSICIAN NO [facility] 02-07-2023 16:23-0400 Heart rate 94 /min PHYSICIAN NO [facility] 02-07-2023 16:23-0400 Systolic blood pressure 109 mm[Hg] PHYSICIAN NO [facility] 01-26-2023 23:47-0400 Respiratory rate 16 /min PHYSICIAN NO [facility] 01-26-2023 22:37-0400 Body height 160.02 cm PHYSICIAN NO [facility] 01-26-2023 22:37-0400 Body weight 93.44 kg PHYSICIAN NO [facility] 01-26-2023 22:37-0400 Diastolic blood pressure 51 mm[Hg] PHYSICIAN NO [facility] 01-26-2023 22:37-0400 Heart rate 91 /min PHYSICIAN NO [facility] 01-26-2023 22:37-0400 Systolic blood pressure 100 mm[Hg] PHYSICIAN NO [facility] 01-26-2023 22:36-0400 SaO2% (BldA) [Mass fraction] 97 % PHYSICIAN NO [facility] 01-26-2023 22:35-0400 Body temperature 96.8 [degF] PHYSICIAN NO [facility] 01-24-2023 16:44-0400 Respiratory rate 16 /min PHYSICIAN NO [facility] 01-24-2023 16:19-0400 Body temperature 97.5 [degF] PHYSICIAN NO [facility] 01-24-2023 16:19-0400 Diastolic blood pressure 56 mm[Hg] PHYSICIAN NO [facility] 01-24-2023 16:19-0400 Heart rate 95 /min PHYSICIAN NO [facility] 01-24-2023 16:19-0400 SaO2% (BldA) [Mass fraction] 98 % PHYSICIAN NO [facility] 01-24-2023 16:19-0400 Systolic blood pressure 99 mm[Hg] PHYSICIAN NO [facility] 01-24-2023 15:36-0400 Body height 160.02 cm PHYSICIAN NO [facility] 01-24-2023 15:36-0400 Body weight 93.44 kg PHYSICIAN NO [facility] 01-14-2023 13:12-0400 Diastolic blood pressure 62 mm[Hg] PHYSICIAN NO [facility] 01-14-2023 13:12-0400 Heart rate 82 /min PHYSICIAN NO [facility] 01-14-2023 13:12-0400 Respiratory rate 16 /min PHYSICIAN NO [facility] 01-14-2023 13:12-0400 Systolic blood pressure 109 mm[Hg] PHYSICIAN NO [facility] 01-14-2023 10:17-0400 Body height 160.02 cm PHYSICIAN NO [facility] 01-14-2023 10:17-0400 Body weight 92.53 kg PHYSICIAN NO [facility] 01-14-2023 10:15-0400 Body temperature 97.2 [degF] PHYSICIAN NO [facility] 01-14-2023 10:15-0400 SaO2% (BldA) [Mass fraction] 99 % PHYSICIAN NO [facility] 12-08-2022 13:30-0400 Respiratory rate 16 /min PHYSICIAN NO [facility] 12-08-2022 13:24-0400 Diastolic blood pressure 66 mm[Hg] PHYSICIAN NO [facility] 12-08-2022 13:24-0400 Heart rate 85 /min PHYSICIAN NO [facility] 12-08-2022 13:24-0400 Systolic blood pressure 118 mm[Hg] PHYSICIAN NO [facility] 12-08-2022 11:21-0400 Body height 152.4 cm PHYSICIAN NO [facility] 12-08-2022 11:21-0400 Body weight 92.07 kg PHYSICIAN NO [facility] 12-08-2022 11:09-0400 Body temperature 97.3 [degF] PHYSICIAN NO [facility] 11-20-2022 14:48-0400 Body temperature 97.5 [degF] PHYSICIAN NO [facility] 11-20-2022 14:48-0400 Diastolic blood pressure 65 mm[Hg] PHYSICIAN NO [facility] 11-20-2022 14:48-0400 Heart rate 85 /min PHYSICIAN NO [facility] 11-20-2022 14:48-0400 Respiratory rate 16 /min PHYSICIAN NO [facility] 11-20-2022 14:48-0400 SaO2% (BldA) [Mass fraction] 98 % PHYSICIAN NO [facility] 11-20-2022 14:48-0400 Systolic blood pressure 120 mm[Hg] PHYSICIAN NO [facility] 11-20-2022 12:40-0400 Body height 165.1 cm PHYSICIAN NO [facility] 11-20-2022 12:40-0400 Body weight 90.71 kg PHYSICIAN NO [facility] 11-03-2022 11:30-0400 Respiratory rate 18 /min PHYSICIAN NO [facility] 11-03-2022 09:54-0400 Diastolic blood pressure 75 mm[Hg] PHYSICIAN NO [facility] 11-03-2022 09:54-0400 Heart rate 83 /min PHYSICIAN NO [facility] 11-03-2022 09:54-0400 Systolic blood pressure 131 mm[Hg] PHYSICIAN NO [facility] 11-03-2022 09:51-0400 SaO2% (BldA) [Mass fraction] 98 % PHYSICIAN NO [facility] 11-03-2022 09:35-0400 Body temperature 97.7 [degF] PHYSICIAN NO [facility] 11-03-2022 09:25-0400 Body height 152.4 cm PHYSICIAN NO [facility] 11-03-2022 09:25-0400 Body weight 93.44 kg PHYSICIAN NO [facility] 04-26-2022 10:45-0500 Body height 162.56 cm Denzel Thomas Other [facility] Other 04-26-2022 10:45-0500 Body mass index (BMI) [Ratio] 34.84 kg/m2 Denzel Thomas Other [facility] Other 04-26-2022 10:45-0500 Body weight 92.08 kg Denzel Thomas Other [facility] Other 04-26-2022 10:45-0500 Diastolic blood pressure 86 mm[Hg] Denzel Thomas Other [facility] Other 04-26-2022 10:45-0500 Systolic blood pressure 123 mm[Hg] Denzel Thomas Other [facility] Other Encounters Encounter Date Encounter Type Care Provider Facility Start: 11-15-2024 Non-patient / Non-visit PHYSICIAN NO [facility] Physician [facility] Work Phone: Start: 11-14-2024 End: 11-16-2024 Evaluation and management of inpatient PHYSICIAN NO [facility] Work Phone: Start: 11-07-2024 Non-patient / Non-visit PHYSICIAN NO [facility] Physician [facility] Work Phone: Start: 11-07-2024 End: 11-10-2024 Evaluation and management of inpatient PHYSICIAN NO [facility] Work Phone: Start: 11-06-2024 End: 11-06-2024 Office outpatient visit 25 minutes Michael Gurrola MD Work Phone: [facility] Comment on above: Severe episode of re current major depressive disorder, without psychotic features (HCC) (CMS/HCC) (Primary Dx) Start: 11-06-2024 End: 11-06-2024 ambulatory MICHAEL GURROLA Not Available Start: 11-06-2024 End: 11-06-2024 Bamboo flowsheet Michael Gurrola MD Work Phone: [facility] Start: 11-06-2024 End: 11-06-2024 Bamboo flowsheet Michael Gurrola MD Work Phone: [facility] Start: 09-17-2024 End: 09-17-2024 Bamboo flowskeily Gurrola MD Work Phone: [facility] Start: 09-17-2024 End: 09-17-2024 Bamboo flowskeily Gurrola MD Work Phone: [facility] Start: 09-17-2024 End: 09-17-2024 ambulatory MICHAEL GURROLA Not Available Start: 09-17-2024 End: 09-17-2024 Patient encounter procedure Michael Gurrola MD Work Phone: [facility] Comment on above: Abdominal pain in fe male (Primary Dx); Pelvic pain in female Start: 09-16-2024 End: 09-16-2024 Emergency department patient visit NO PCP NO PCP [facility] Start: 09-12-2024 End: 09-12-2024 ambulatory MICHAEL GURROLA Not Available Start: 09-12-2024 End: 09-12-2024 Patient encounter procedure Michael Gurrola MD Work Phone: [facility] Comment on above: Abdominal pain in fe male (Primary Dx) Start: 09-11-2024 End: 09-11-2024 Bamboo flowskeily Gurrola MD Work Phone: [facility] Start: 09-11-2024 End: 09-11-2024 Bamboo flowskeily Gurrola MD Work Phone: [facility] Start: 09-11-2024 End: 09-11-2024 Office outpatient visit 25 minutes Michael Gurrola MD Work Phone: [facility] Comment on above: Abdominal pain in fe male (Primary Dx) Start: 09-11-2024 End: 09-11-2024 ambulatory MICHAEL GURROLA Not Available Start: 07-30-2024 End: 07-30-2024 Telephone encounter Michael Gurrola MD Work Phone: [facility] Start: 07-22-2024 End: 07-22-2024 ambulatory [facility] Work Phone: Start: 07-22-2024 End: 07-22-2024 Patient encounter procedure [facility] Work Phone: Start: 07-10-2024 End: 07-10-2024 Office outpatient visit 25 minutes Michael Gurrola MD Work Phone: [facility] Comment on above: Right lower quadrant pain (Primary Dx); Pelvic pain in female; Right ovarian cyst Start: 07-10-2024 End: 07-10-2024 Bamboo flowsheet Michael Gurrola MD Work Phone: [facility] Start: 07-10-2024 End: 07-10-2024 Bamboo flowsheet Michael Gurrola MD Work Phone: [facility] Start: 07-10-2024 End: 07-10-2024 ambulatory MICHAEL GURROLA Not Available Start: 04-10-2024 End: 04-16-2024 Evaluation and management of inpatient Cristiano Singh MD Work Phone: [facility] Comment on above: Pneumoperitoneum (Pr imary Dx); Perforated diverticulum; Peritoneal cavity free air Start: 04-09-2024 End: 04-09-2024 Emergency department patient visit Tyrone Benito DO Work Phone: [facility] Comment on above: Right ovarian cyst ( Primary Dx) Start: 04-02-2024 End: 04-02-2024 Emergency department patient visit Tyrone Benito DO Work Phone: [facility] Comment on above: Right ovarian cyst ( Primary Dx) Start: 03-17-2024 End: 03-17-2024 Emergency department patient visit Prudence Wong MD Work Phone: [facility] Start: 03-10-2024 End: 03-10-2024 [facility] Start: 02-15-2024 End: 02-15-2024 Office outpatient visit 15 minutes [facility] 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 [facility] Comment on above: Pelvic pain (Primary Dx); Routine general medical examination at a health care facility Start: 02-15-2024 End: 02-15-2024 Patient encounter status [facility] Resident [facility] Work Phone: Start: 02-07-2024 End: 02-08-2024 Emergency department patient visit MARNIE [facility] Start: 02-07-2024 End: 02-08-2024 Emergency department patient visit NO PCP NO PCP [facility] Start: 02-07-2024 End: 02-07-2024 Emergency department patient visit [facility] ED Comment on above: Abdominal pain, righ t lower quadrant (Primary Dx); Pelvic pain Start: 02-06-2024 End: 02-06-2024 ambulatory MICKIE Olson RADHA [facility] Start: 02-06-2024 End: 02-06-2024 Subsequent hospital visit by physician Melida Huang 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 Work Phone: [facility] Laboratory Comment on above: Pelvic pain Start: 02-05-2024 End: 02-05-2024 Emergency department patient visit ALEX COWAN [facility] Start: 02-03-2024 End: 02-04-2024 Emergency department patient visit Jess Baldomero Daigle DO Work Phone: [facility] Comment on above: Right ovarian cyst ( Primary Dx) Start: 01-22-2024 End: 01-22-2024 Office outpatient new 30 minutes [facility] Resident 4yr [facility] Comment on above: Pelvic abscess in fe male (Primary Dx); Change or removal of drains Start: 01-22-2024 End: 01-22-2024 ambulatory MELIDA HUANG [facility] Start: 01-19-2024 End: 01-19-2024 Telephone encounter [facility] Work Phone: [facility] Start: 01-15-2024 End: 01-15-2024 ambulatory [facility] Start: 01-14-2024 End: 01-14-2024 Telephone encounter Genna maldonado Comment on above: Pain; Weakness - Gen eralized Start: 01-14-2024 ambulatory [facility] Start: 01-13-2024 End: 01-17-2024 Evaluation and management of inpatient [facility] Start: 01-13-2024 Emergency department patient visit [facility] Start: 01-13-2024 End: 01-13-2024 Telephone encounter Chantelle maldonado Comment on above: Medication Request Start: 01-13-2024 End: 01-13-2024 Emergency department patient visit [facility] Start: 01-09-2024 End: 01-09-2024 ambulatory MICHAEL GURROLA Not Available Start: 01-08-2024 End: 01-08-2024 Emergency department patient visit PHYSICIAN MIHAI ANDRADE [facility] Work Phone: Start: 01-04-2024 End: 01-04-2024 Telephone encounter Lupe Claros [facility] Start: 12-18-2023 End: 12-18-2023 Emergency department patient visit None Provider Facility:[facility] Start: 11-28-2023 End: 11-28-2023 ambulatory MICKIEMO GARCIA [facility] Start: 11-26-2023 End: 11-27-2023 Emergency department patient visit SHEREEN GIRALDO [facility] Start: 11-20-2023 End: 11-20-2023 ambulatory MICKIE [facility] Start: 11-20-2023 End: 11-20-2023 Subsequent hospital visit by physician Mickie La DO Work Phone[facility] Comment on above: Postoperative pain ( Primary Dx); Menorrhagia with regular cycle; Pelvic pain; Adenomyosis; Pelvic congestion syndrome Start: 10-18-2023 End: 10-18-2023 ambulatory Juan Santillan Facility:[facility] Start: 08-15-2023 End: 08-15-2023 Emergency department patient visit Sage Funes DO Work Phone: [facility] Comment on above: Viral upper respirat ory tract infection (Primary Dx) Start: 07-25-2023 End: 07-25-2023 ambulatory MELIDA HUANG [facility] Start: 07-25-2023 End: 07-25-2023 Subsequent hospital visit by physician Kisha Rangel MD Work Phone: [facility] Comment on above: Chronic GERD; Diarrhea, unspecified type; Gas pain Start: 06-09-2023 End: 06-09-2023 Emergency department patient visit None Provider Facility:[facility] Start: 06-04-2023 End: 06-04-2023 ambulatory None Provider Facility:[facility] Start: 05-05-2023 End: 05-05-2023 ambulatory PHYSICIAN NO [facility] Work Phone: Start: 05-05-2023 End: 05-05-2023 Departed Referred PHYSICIAN NO [facility] [place] Work Phone: Start: 04-15-2023 End: 04-16-2023 Emergency department patient visit None Provider Facility:[facility] Start: 02-26-2023 End: 02-27-2023 Evaluation and management of inpatient PHYSICIAN NO [facility] [place] Work Phone: Start: 02-25-2023 End: 02-25-2023 ambulatory PHYSICIAN NO [facility] Work Phone: Start: 02-25-2023 End: 02-25-2023 Patient encounter procedure PHYSICIAN NO [facility] - [facility] Start: 02-22-2023 End: 02-22-2023 ambulatory PHYSICIAN NO [facility] Work Phone: Start: 02-22-2023 End: 02-22-2023 Patient encounter procedure PHYSICIAN NO [facility] - [facility] Start: 02-19-2023 End: 02-19-2023 ambulatory PHYSICIAN NO [facility] Work Phone: Start: 02-19-2023 End: 02-19-2023 Patient encounter procedure PHYSICIAN NO [facility] - [facility] Start: 02-17-2023 End: 02-17-2023 ambulatory PHYSICIAN NO [facility] Work Phone: Start: 02-17-2023 End: 02-17-2023 Patient encounter procedure PHYSICIAN NO [facility] - [facility] Start: 02-16-2023 End: 02-16-2023 Departed Referred PHYSICIAN NO [facility] Work Phone: Start: 02-07-2023 End: 02-07-2023 Patient encounter procedure PHYSICIAN NO [facility] - [facility] Start: 01-26-2023 End: 01-26-2023 ambulatory PHYSICIAN NO [facility] Work Phone: Start: 01-26-2023 End: 01-26-2023 Patient encounter procedure PHYSICIAN NO [facility] Start: 01-24-2023 End: 01-24-2023 ambulatory PHYSICIAN NO [facility] Work Phone: Start: 01-24-2023 End: 01-24-2023 Patient encounter procedure PHYSICIAN NO [facility] - [facility] Start: 01-16-2023 End: 01-16-2023 ambulatory None Provider Facility:[facility] Start: 01-14-2023 End: 01-14-2023 ambulatory PHYSICIAN NO [facility] Work Phone: Start: 01-14-2023 End: 01-14-2023 Patient encounter procedure PHYSICIAN NO [facility] - O/P Start: 01-11-2023 End: 01-11-2023 Emergency department patient visit Anjel Mcclurekaykay Facility:[facility] Start: 01-05-2023 End: 01-05-2023 ambulatory None Provider Facility:[facility] Start: 12-08-2022 End: 12-08-2022 Patient encounter procedure PHYSICIAN NO [facility] Labor - O/P Start: 11-20-2022 End: 11-20-2022 ambulatory PHYSICIAN NO [facility] Work Phone: Start: 11-20-2022 End: 11-20-2022 Patient encounter procedure PHYSICIAN NO [facility] Labor - O/P Start: 11-03-2022 End: 11-03-2022 Patient encounter procedure PHYSICIAN NO [facility] Labor - O/P Start: 07-21-2022 End: 07-21-2022 ambulatory Denzel Thomas Other [facility] Other Start: 07-21-2022 Telephone encounter Denzel Toure [facility] Start: 07-20-2022 End: 07-20-2022 ambulatory Denzel Thomas Other [facility] Other Start: 07-20-2022 Telephone encounter Denzel HENRY G [facility] Start: 07-05-2022 End: 07-05-2022 ambulatory Denzel Thomas Other [facility] Other Start: 07-05-2022 Telephone encounter Denzel HENRY G [facility] Start: 06-30-2022 End: 06-30-2022 ambulatory Denzel Thomas Other [facility] Other Start: 06-30-2022 Telephone encounter Denzel HENRY G [facility] Start: 06-14-2022 End: 06-14-2022 ambulatory Denzel Thomas Other [facility] Other Start: 06-14-2022 Telephone encounter Denzel HENRY G [facility] Start: 05-30-2022 End: 05-30-2022 ambulatory Denzel Thomas Other [facility] Other Start: 05-30-2022 Telephone encounter Denzel HENRY G [facility] Start: 04-26-2022 End: 04-26-2022 ambulatory Denzel Thomas Other [employer] Other Start: 04-26-2022 FQ visit new patient Denzel Thomas [facility] Start: 03-21-2022 End: 03-21-2022 ambulatory Hernan Salas Other [employer] Other Start: 03-21-2022 Telephone encounter Hernan Calvo ck [facility] Procedures Date Procedure Procedure Detail Performing Clinician Start: 11-15-2024 Plain X-ray of right hand PHYSICIAN NO FAMILY Start: 04-16-2024 Radiologic exam abdo men 1 view Nicolette Wyman MD Work Phone: Start: 04-15-2024 Blood count complete auto&auto difrntl wbc Aubrie L Isaac 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 Work Phone: Start: 04-14-2024 Radiologic exam abdo men 1 view Nicolette Wyman MD Work Phone: Start: 04-14-2024 Assay of magnesium Tate n L Isaac 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 Work Phone: Start: 04-13-2024 Radiologic exam abdo men 1 view Nicolette Wyman MD Work Phone: Start: 04-13-2024 Assay of magnesium Tate n L Isaac 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 Work Phone: Start: 04-12-2024 Assay of magnesium Tate n L Isaac 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 Work Phone: Start: 04-11-2024 End: 04-12-2024 Rhythm ecg 1-3 leads w/interpretation & report Unknown Provider Result Start: 04-11-2024 Blood count complete auto&auto difrntl wbc Aubrie Gray 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 Work Phone: Start: 04-11-2024 SURGICAL PATHOLOGY REPORT Nicolette Wyman MD Work Phone: Start: 04-10-2024 Cul prsmptv pthgnc o rganism scrn w/colony estimj Cristiano Singh MD Work Phone: Start: 04-10-2024 End: 04-11-2024 LAPAROTOMY EXPLORATORY Cristiano Singh MD Work Phone: Start: 04-10-2024 Blood typing serologic abo Cristiano Singh MD Work Phone: Start: 04-10-2024 Assay of lactate Juanis Mendez Palencia PA-C Work Phone: Start: 04-10-2024 Ct abdomen & pelvis w/contrast material Juanis Mendez Palencia PA-C Work Phone: Start: 04-10-2024 Us transvaginal Juanis Palencia PA-C Work Phone: Start: 04-10-2024 Ecg routine ecg w/le ast 12 lds i&r only Juanis Palencia PA-C Work Phone: Start: 04-10-2024 Basic metabolic pane l calcium total Juanis Palencia PA-C Work Phone: Start: 04-10-2024 Urinalysis microscopic only Juanis Palencia PA-C Work Phone: Start: 04-10-2024 Urnls dip stick/tabl et rgnt auto w/o microscopy Juanis Palencia PA-C Work Phone: Start: 04-09-2024 Us transvaginal Rebecca Benito DO Work Phone: Start: 04-09-2024 Urinalysis microscopic only Tyrone Maldonado Thong DO Work Phone: Start: 04-09-2024 Urnls dip stick/tabl et rgnt auto w/o microscopy Tyrone Benito DO Work Phone: Start: 04-09-2024 Basic metabolic pane l calcium total Tyrone Benito DO Work Phone: Start: 04-02-2024 Ct abdomen & pelvis w/contrast material Tyrone R Thong DO Work Phone: Start: 04-02-2024 Us transvaginal Rebecca ana laura Joel Benito DO Work Phone: Start: 04-02-2024 Comprehensive metabo lic panel Tyrone R Thong DO Work Phone: Start: 04-02-2024 Urinalysis microscopic only Tyrone Benito DO Work Phone: Start: 04-02-2024 Urnls dip stick/tabl et rgnt auto w/o microscopy Tyrone Benito DO Work Phone: Start: 03-17-2024 Ct abdomen & pelvis w/contrast material Prudence Wong MD Work Phone: Start: 03-17-2024 Urinalysis microscopic only Prudence Wong MD Work Phone: Start: 03-17-2024 Urnls dip stick/tabl et rgnt auto w/o microscopy Prudence Wong MD Work Phone: Start: 03-17-2024 Comprehensive metabo lic panel Prudence Wong MD Work Phone: Start: 02-07-2024 Ct abdomen & pelvis w/contrast material Janessa Marshall 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 Work Phone: Start: 02-07-2024 Urinalysis microscopic only Marianela Lizarraga MD Work Phone: Start: 02-07-2024 Urnls dip stick/tabl et rgnt auto w/o microscopy Marianela Lizarraga MD Work Phone: Start: 02-07-2024 End: 02-07-2024 Comprehensive metabolic panel Marianela Lizarraga MD Work Phone: Start: 02-03-2024 Ct abdomen & pelvis w/contrast material Jess Daigle DO Work Phone: Start: 02-03-2024 Comprehensive metabo lic panel Jess Alexandre Daigle DO Work Phone: Start: 02-03-2024 Urine test visual color cmprsn meths Jess Alexandre Daigle DO Work Phone: Start: 02-03-2024 Urnls dip stick/tabl et reagent auto microscopy Jess Alexandre Daigle DO Work Phone: Start: 01-08-2024 SARS-CoV-2, [...] meths Kisha Rangel MD Work Phone: Start: 02-26-2023 Urine culture PHYSICIAN NO FAMILY Start: 02-22-2023 Urine culture PHYSICIAN NO FAMILY Start: 02-16-2023 Streptococcus agalac tiae culture PHYSICIAN NO FAMILY Start: 01-05-2022 Adult depression scr eening assessment Lupe Claros [facility] Start: 05-19-2020 Microscopic observat ion [Identifier] in Cervix by Cyto stain Lupe Claros [facility] Plan of Treatment Date Care Activity Detail Author Start: 02-27-2033 DTaP,Tdap and Td Vaccines (9 - Td or Tdap) DTaP,Tdap and Td Vaccines (9 - Td or Tdap) [facility] Start: 02-27-2033 DTaP/Tdap/Td vaccine (9 - Td or Tdap) DTaP/Tdap/Td vaccine (9 - Td or Tdap) [facility] Start: 12-09-2031 DTaP,Tdap and Td Vaccines (8 - Td or Tdap) DTaP,Tdap and Td Vaccines (8 - Td or Tdap) [facility] Start: 02-17-2025 Influenza vaccination Influenza Vaccine (Season Ended) [facility] Start: 02-14-2025 Adult BMI Screening Adult BMI Screening [facility] Start: 02-14-2025 Tobacco Screening Tobacco Screening [facility] Start: 01-21-2025 Adult BMI Screening Adult BMI Screening [facility] Start: 01-21-2025 Tobacco Screening Tobacco Screening [facility] Start: 01-16-2025 Adult BMI Screening Adult BMI Screening [facility] Start: 01-14-2025 Tobacco Screening Tobacco Screening [facility] Start: 01-12-2025 Adult BMI Screening Adult BMI Screening [facility] Start: 01-12-2025 Tobacco Screening Tobacco Screening [facility] Start: 11-16-2024 [facility] Start: 11-15-2024 Hospital admission [facility] Start: 11-15-2024 [facility] Start: 11-10-2024 [facility] Start: 11-07-2024 Referral to Dental Technician [facility] Start: 11-07-2024 Hospital admission [facility] Start: 11-06-2024 End: 11-06-2024 Patient encounter procedure 11/06/2024 4:00 PM EDT Office Visit [facility] [address] [place] [phone] Michael Gurrola MD [address] [facility] [address] [place] [address] Arrived [facility] Comment on above: Arrived Start: 10-30-2024 Depression Monitoring Depression Monitoring [facility] Start: 09-17-2024 End: 09-17-2024 Patient encounter procedure 09/17/2024 4:15 PM EDT Office Visit [facility] [address] [place] [address] Michael Gurrola MD [address] [place] [address] [facility] Start: 09-17-2024 End: 09-17-2024 Professional / ancillary services management 09/17/2024 3:00 PM EDT Ancillary Procedure [facility] [address] [place] [address] [facility] Start: 09-17-2024 End: 09-17-2024 Patient encounter procedure 09/17/2024 11:45 AM EDT Office Visit [facility] [address] [place] [address] Michael Gurrola MD [address] [place] [address] [facility] Start: 09-11-2024 End: 09-11-2024 Patient encounter procedure 09/11/2024 1:30 PM EDT Office Visit [facility] [address] [place] [address] Michael Gurrola MD [address] [place] [address] [facility] Comment on above: Arrived Start: 08-01-2024 End: 08-01-2024 Patient encounter procedure 08/01/2024 1:45 PM EST Office Visit [facility] [address] [place] [address] Michael Gurrola MD [address] [place] [address] [facility] Start: 08-01-2024 End: 08-01-2024 Professional / ancillary services management 08/01/2024 1:00 PM EST Ancillary Procedure [facility] [address] [place] [address] [facility] Start: 07-19-2024 Depression Monitoring Depression Monitoring [facility] Start: 07-10-2024 End: 07-10-2024 Patient encounter procedure 07/10/2024 2:30 PM EST Office Visit [facility] [address] [facility] [address] [place] [id number] Michael Gurrola MD [address] [place] [address] Pelvic pain in female; Chronic low back pain without sciatica, unspecified back pain laterality [facility] Comment on above: Pelvic pain in female; Chronic low back pain without sciatica, unspecified back pain laterality Start: 06-04-2024 End: 06-04-2024 Patient encounter procedure 06/04/2024 11:30 AM EST Office Visit [facility] [address] [place] [address] Asael Tapia, RESPIRATORY THERAPY TECHNICIAN-MACHINE MOLDER [address] [place] [address] [facility] Start: 05-29-2024 End: 05-29-2024 Patient encounter procedure 05/29/2024 2:00 PM EST Office Visit [facility] [address] [place] [address] Nj Bowser MD [address] [place] [address] [address] [place] [address] follow up from surgery 04/10/24 [facility] Comment on above: follow up from surgery 04/10/24 Start: 04-23-2024 End: 04-23-2024 Patient encounter procedure 04/23/2024 4:00 PM EST Office Visit [facility] Part [address] [place] [address] Mary Ellen Soriano, DO [address] [place] [address] Post op (04/10)-ex davis casey [facility] Part [facility] Comment on above: Post op (04/10)-ex lap, appy Start: 03-22-2024 End: 03-22-2024 Patient encounter procedure 03/22/2024 1:30 PM EDT Office Visit [facility] [address] [place] [address] [facility] Start: 02-20-2024 End: 02-20-2024 Patient encounter procedure 02/20/2024 1:00 PM EDT Office Visit [facility] [address] [place] [address] Mickie Barrientos, DO [address] [place] [address] P/O follow up infection [facility] Comment on above: P/O follow up infection Start: 02-18-2024 COVID-19 Vaccine ( season) COVID-19 Vaccine ( season) [facility] Start: 02-18-2024 Influenza vaccination [facility] Start: 02-06-2024 End: 02-06-2024 Patient encounter procedure 02/06/2024 4:30 PM EDT Office Visit [facility]necology [address], [address] [place], [place] [id number] Esther Burrell PA-C [address] [place] [address] F/U from [facility] to [facility] Comment on above: F/U from [facility] Start: 01-18-2024 [facility] Start: 01-08-2024 [facility] Start: 01-08-2024 Bacteria identified in Blood by Culture [facility] Start: 01-08-2024 Genital Culture Genital Culture [facility] Start: 01-05-2024 End: 01-05-2024 Patient encounter procedure 01/05/2024 10:00 AM EDT Office Visit [facility] Certified Nurse Medical Dosimetrist - [place] [address] [address] [facility] Certified Nurse Medical Dos[facility]rist - [place] Start: 12-26-2023 End: 12-26-2023 Patient encounter procedure 12/26/2023 11:45 AM EDT Office Visit [facility] [address] [place] [address] Mickie Barrientos DO [address] [place] [address] 6 wk post-op [facility] 09/12 [facility] Comment on above: 6 wk post-op [facility] Start: 12-06-2023 End: 12-06-2023 Patient encounter procedure 12/06/2023 11:30 AM EDT Office Visit [facility] [address] [place] [address] Esther Burrell PA-C [address] [place] [address] 2 wk post-op [facility] 09/12 [facility] Comment on above: 2 wk post-op [facility] 09/12 Start: 11-20-2023 End: 11-20-2023 Laps total hysterect 250 gm/< w/rmvl tube/ovary HYSTERECTOMY VAGINAL LAPAROSCOPIC ROBOTIC ASSISTED Menorrhagia with regular cycle Pelvic pain Adenomyosis Pelvic congestion syndrome 11/20/2023 1:56 PM EDT [facility] Start: 08-29-2023 End: 08-29-2023 Patient encounter procedure 08/29/2023 11:30 AM EDT Office Visit [facility] [address] [place] [id number] Mickie Barrientos, DO [address] [place] [address] wet plant operator us for RLQ pain & DUB / discuss Hyst / Kp Pt [facility] Comment on above: wet plant operator us for RLQ pain & DUB / discuss Hyst / Kp Pt Start: 08-29-2023 End: 08-29-2023 Professional / ancillary services management 08/29/2023 11:00 AM EDT Ancillary Procedure [facility] [address] [place] [address] wet plant operator us / RLQ pain & DUB [facility] Comment on above: 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 plant operator us / RLQ pain & DUB Start: 08-23-2023 End: 08-23-2023 Patient encounter procedure 08/23/2023 10:30 AM EST Office Visit [facility] Gastroenterology [address] [place] [id number] Pia Coates, 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 [address] [place] [address] [address] [place] [address] 6 wks [facility] Comment on above: 6 wks Start: 07-25-2023 End: 07-25-2023 Esophagogastroduodenoscopy transoral diagnostic EGD ESOPHAGOGASTRODUODENOSCOPY Chronic GERD Diarrhea, unspecified type Gas pain 07/25/2023 9:18 AM EST [facility] Start: 05-19-2023 Screening for malignant neoplasm of cervix Pap Smear [facility] Start: 02-27-2023 Rubella IgG measurement [facility] Start: 02-27-2023 [facility] Start: 02-27-2023 [facility] Start: 02-26-2023 Hospital admission [facility] Start: 02-26-2023 Hospital admission [facility] Start: 02-26-2023 [facility] Start: 02-26-2023 Delivery of Products of Conception, External Approach Delivery of Products of Conception, External Approach [facility] Start: 02-26-2023 Drainage of Amniotic Fluid, Therapeutic from Products of Conception, Via Natural or Artificial Opening Drainage of Amniotic Fluid, Therapeutic from Products of Conception, Via Natural or Artificial Opening [facility] Start: 02-26-2023 Urine culture Urine Culture [facility] Start: 02-25-2023 [facility] Start: 02-25-2023 Hospital admission [facility] Start: 02-22-2023 [facility] Start: 02-22-2023 Hospital admission [facility] Start: 02-22-2023 Bacteria identified in Urine by Culture [facility] Start: 02-19-2023 [facility] Start: 02-19-2023 Hospital admission [facility] Start: 02-17-2023 [facility] Start: 02-17-2023 Hospital admission [facility] Start: 02-17-2023 COVID-19 Vaccine ( season) COVID-19 Vaccine ( season) [facility] Start: 02-16-2023 Streptococcus agalactiae culture Group B Streptococcus Culture [facility] Start: 02-07-2023 [facility] Start: 02-07-2023 Hospital admission [facility] Start: 01-26-2023 [facility] Start: 01-26-2023 Hospital admission [facility] Start: 01-24-2023 Hospital admission [facility] Start: 01-24-2023 End: 01-24-2023 [facility] Start: 01-17-2023 Influenza vaccination Flu vaccine (#1) [facility] Start: 01-14-2023 [facility] Start: 01-14-2023 Hospital admission [facility] Start: 01-05-2023 Adult BMI Screening Adult [facility] Screening [facility] Start: 01-05-2023 Depression Screening Depression Screening [facility] Start: 01-05-2023 Tobacco Screening Tobacco Screening [facility] Start: 12-08-2022 [facility] Start: 12-08-2022 Hospital admission [facility] Start: 11-20-2022 [facility] Start: 11-20-2022 Hospital admission [facility] Start: 11-03-2022 [facility] Start: 11-03-2022 Hospital admission [facility] Start: 09-12-2016 Screening for malignant neoplasm of cervix Pap smear [facility] Start: 09-12-2013 Adult BMI Follow Up Plan Adult BMI Follow Up Plan [facility] Start: 09-12-2013 Hepatitis C screening Hepatitis C screen [facility] Start: 09-12-2010 HIV screening HIV screen [facility] Start: 02-12-2003 Varicella vaccine (2 of 2 - 2-dose childhood series) Varicella vaccine (2 of 2 - 2-dose childhood series) [facility] Start: 09-12-2001 Pneumococcal 0-64 years Vaccine (1 of 2 - PCV) Pneumococcal 0-64 years Vaccine (1 of 2 - PCV) [facility] Start: 03-15-1996 COVID-19 Vaccine (#1) COVID-19 Vaccine (#1) [facility] Start: 1995 Tobacco Counseling Tobacco Counseling [facility] Bacteria identified in Genital specimen by Aerobe culture [facility] End: 02-03-2024 Blood Culture 1 [facility] Comment on above: One Time for 1 Occurrences starting 01/17 until 02/03/2024 CT Abdomen and Pelvi s W contrast IV CT ABDOMEN PELVIS W IV CONTRAST Additional Contrast? None Imaging STAT 04/02/2024 12:29 PM EDT [facility] [employer] Hepatitis B virus jennings rface Ag [Presence] in Serum or Plasma by Immunoassay [facility] End: 11-20-2023 INITIATE PACU OXYGEN THERAPY PROTOCOL Initiate PACU Oxygen Therapy Protocol Respiratory Care Routine Continuous until discontinued starting 11/20/2023 [facility] Comment on above: Continuous until discontinued starting 0 11/20/2023 Oxygen therapy [[facility] Data Set] Initiate Oxygen Therapy Protocol Respiratory Care Routine As Needed until discontinued starting 11/20/2023 [facility] Comment on above: As Needed until discontinued starting Oxygen therapy [[facility] Data Set] Initiate Oxygen Therapy Protocol Respiratory Care Routine Daily until discontinued starting 04/11/2024 [facility] Comment on above: Daily until discontinued starting 2023 Patient Education [facility] Work Phone: Patient referral [facility] Work Phone: End: 11-20-2023 , urine POCT , urine POCT Point of Care Testing Routine One Time for 1 Occurrences starting 11/20/2023 until 11/20/2023 [employer] Comment on above: One Time for 1 Occurrences starting 08/2023 until 11/20/2023 Reagin Ab [Presence] in Serum by RPR [facility] Surgical Pathology Surgical Path ology Lab Routine Chronic GERD Diarrhea, unspecified type Gas pain Release Upon Ordering for 1 Occurrences starting 07/25/2023 [employer] Work Phone: Comment on above: Release Upon Ordering for 1 Occurrences starting 07/25/2023 Surgical Pathology Surgical Path ology Lab Routine Menorrhagia with regular cycle Pelvic pain Adenomyosis Pelvic congestion syndrome Release Upon Ordering for 1 Occurrences starting 11/20/2023 [employer] Work Phone: Comment on above: Release Upon Ordering for 1 Occurrences starting 11/20/2023 End: 11-20-2023 SURGICAL PATHOLOGY REPORT SURGICAL PATHOLOGY REPORT Lab Routine Once for 1 Occurrences starting 11/20/2023 until 11/20/2023 [facility] Comment on above: Once for 1 Occurrences starting 11/20/19 until 11/20/2023 Surgical pathology study Surgica l Pathology Lab Routine Peritoneal cavity free air Release Upon Ordering for 1 Occurrences starting 04/10/2024 [facility] Comment on above: Release Upon Ordering for 1 Occurrences starting 04/10/2024 End: 03-17-2024 US Pelvis transvaginal [employer] Work Phone: Comment on above: Once for 1 Occurrences starting 03/17/20 until 03/17/2024 End: 02-06-2024 Vaginitis DNA Probe [facility] Comment on above: 1 Occurrences starting 02/06/2024 until 02/06/2024 Immunizations Immunization Date Immunization Notes Care Provider Malik singhbon 02-27-2023 tetanus toxoid, redu hoda diphtheria toxoid, and acellular pertussis vaccine, adsorbed PHYSICIAN NO [facility] 12-08-2021 measles, mumps and rubella virus vaccine PHYSICIAN NO [facility] 12-08-2021 tetanus toxoid, redu hoda diphtheria toxoid, and acellular pertussis vaccine, adsorbed PHYSICIAN NO [facility] 12-27-2018 tetanus toxoid, redu hoda diphtheria toxoid, and acellular pertussis vaccine, adsorbed [facility] Work Phone: [facility] 07-26-2014 measles, mumps and rubella virus vaccine [facility] Work Phone: [facility] 04-24-2014 influenza, seasonal, injectable, preservative free [facility] Work Phone: [facility] 04-24-2014 influenza virus vaccine, unspecified formulation Lupe Claros [facility] 11-20-2002 diphtheria, tetanus toxoids and acellular pertussis vaccine, unspecified formulation [facility] Work Phone: [facility] 11-20-2002 haemophilus influenz ae type b conjugate and Hepatitis B vaccine [facility] Work Phone: [facility] 11-20-2002 measles, mumps and rubella virus vaccine [facility] Work Phone: [facility] 11-20-2002 varicella virus vaccine [facility] Work Phone: [facility] 04-03-2002 diphtheria, tetanus toxoids and acellular pertussis vaccine, unspecified formulation [facility] Work Phone: [facility] 04-03-2002 haemophilus influenz ae type b vaccine, conjugate unspecified formulation [facility] Work Phone: [facility] 04-03-2002 poliovirus vaccine, inactivated [facility] Work Phone: [facility] 02-07-2002 diphtheria, tetanus toxoids and acellular pertussis vaccine, unspecified formulation [facility] Work Phone: [facility] 02-07-2002 haemophilus influenz ae type b conjugate and Hepatitis B vaccine [facility] Work Phone: [facility] 02-07-2002 poliovirus vaccine, inactivated [facility] Work Phone: [facility] 12-05-2001 diphtheria, tetanus toxoids and acellular pertussis vaccine, unspecified formulation [facility] Work Phone: [facility] 12-05-2001 haemophilus influenz ae type b conjugate and Hepatitis B vaccine [facility] Work Phone: [facility] 12-05-2001 poliovirus vaccine, inactivated [facility] Work Phone: [facility] 10-31-2000 diphtheria, tetanus toxoids and acellular pertussis vaccine, unspecified formulation [facility] Work Phone: [facility] 10-31-2000 measles, mumps and rubella virus vaccine [facility] Work Phone: [facility] 10-31-2000 poliovirus vaccine, inactivated [facility] Work Phone: [facility] 11-01-1996 diphtheria, tetanus toxoids and acellular pertussis vaccine, unspecified formulation [facility] Work Phone: [facility] 11-01-1996 haemophilus influenz ae type b vaccine, conjugate unspecified formulation [facility] Work Phone: [facility] 11-01-1996 measles, mumps and rubella virus vaccine [facility] Work Phone: [facility] 04-17-1996 DTP-Haemophilus influenzae type b conjugate vaccine [facility] Work Phone: [facility] 04-17-1996 hepatitis B vaccine, pediatric or pediatric/adolescent dosage [facility] Work Phone: [facility] 04-17-1996 trivalent poliovirus vaccine, live, oral [facility] Work Phone: [facility] 02-01-1996 DTP-Haemophilus influenzae type b conjugate vaccine [facility] Work Phone: [facility] 02-01-1996 trivalent poliovirus vaccine, live, oral [facility] Work Phone: [facility] 1995 DTP-Haemophilus influenzae type b conjugate vaccine [facility] Work Phone: [facility] 1995 hepatitis B vaccine, pediatric or pediatric/adolescent dosage [facility] Work Phone: [facility] 1995 trivalent poliovirus vaccine, live, oral [facility] Work Phone: [facility] 1995 hepatitis B vaccine, pediatric or pediatric/adolescent dosage [facility] Work Phone: [facility] Payers Date Payer Category Payer Private Health Insurance [facility] MEDICAID [id number] 2022 Unknown [id number] 2022 Medicaid [employer] HMO [id number] 2022-Present [phone] [address] [place] [address] [id number] 2018 Medicaid [id number] 1995 Unknown [id number] 2.16.840.1.109077.3.579.2. 174 1995 Unknown [id number] 2.16.840.1.079986.3.579.2. 1995 Unknown [id number] 2.16.840.1.863700.3.579.2. 8 1995 Unknown [id number] 2.16.840.1.941519.3.579.2. 1995 Unknown [id number] 2.16.840.1.196299.3.579.2. 1995 Unknown [id number] 2.16.840.1.575961.3.579.2. 1995 Unknown [id number] 2.16.840.1.696999.3.579.2. 1995 Unknown [id number] 2.16.840.1.050405.3.579.2. 1995 Unknown [id number] 2.16.840.1.371439.3.579.2. 1995 Unknown [id number] 2.16.840.1.898203.3.579.2. 1285 1995 Unknown [id number] 2.16.840.1.892435.3.579.2. 1285 1995 Unknown [id number] 2.16.840.1.039629.3.579.2. 1285 1995 Unknown [id number] 2.16.840.1.902096.3.579.2. 1285 1995 Unknown [id number] 2.16.840.1.092385.3.579.2. 1285 1995 Unknown [id number] 2.16.840.1.410619.3.579.2. 1285 1995 Unknown [id number] 2.16.840.1.483060.3.579.2. 1285 1995 Unknown [id number] 2.16.840.1.861865.3.579.2. 173 1995 Unknown [id number] 2.16.840.1.483721.3.579.2. 173 1995 Unknown [id number] 2.16.840.1.951505.3.579.2. 173 1995 Unknown [id number] 2.16.840.1.290209.3.579.2. 173 1995 Unknown [id number] 2.16.840.1.983790.3.579.2. 173 1995 Unknown [id number] 2.16.840.1.942226.3.579.2. 173 1995 Unknown [id number] 2.16.840.1.086907.3.579.2. 173 1995 Unknown [id number] 2.16.840.1.185966.3.579.2. 173 1995 Unknown [id number] 2.16.840.1.876026.3.579.2. 173 1995 Unknown [id number] 2.16.840.1.578596.3.579.2. 173 1995 Unknown [id number] 2.16.840.1.281081.3.579.2. 173 1995 Unknown [id number] 2.16.840.1.623788.3.579.2. 173 1995 Unknown [id number] 2.16.840.1.190609.3.579.2. 173 1995 Unknown [id number] 2.16.840.1.050607.3.579.2. 1259 1995 Unknown [id number] 2.16.840.1.061814.3.579.2. 1259 1995 Unknown [id number] 2.16.840.1.327275.3.579.2. 1259 1995 Unknown [id number] 2.16.840.1.482821.3.579.2. 1259 1995 Unknown [id number] 2.16.840.1.543487.3.579.2. 1259 1995 Unknown [id number] 2.16.840.1.667664.3.579.2. 1259 Self-pay Self Pay [id number] Unknown [id number] 2..840.1.032730.19 Unknown [employer]/BS [id number] Social History Date Type Detail Facility Start: 07-25-2023 End: 11-06-2024 Sex Assigned At [facility] Start: 06-21-2022 End: 11-15-2024 Tobacco smoking status ALIS Smoker (finding) [facility] Start: 1995 Sex Assigned At Female [facility] Start: 07-24-2023 Tobacco smoking status ALIS Never smoked tobacco [facility] Start: 04-25-2023 End: 07-24-2023 Tobacco use and exposure Smokeless tobacco non-user [facility] Start: 07-25-2023 End: 02-15-2024 Alcohol intake Ex-drinker (finding) [facility] Start: 07-25-2023 End: 11-06-2024 [facility] 9 item (PHQ-9) total score [Reported] 23 [facility] Start: 07-19-2023 Alcohol Comment occ [facility] Start: 1995 Sex Assigned At Not on file [facility] How often to you hav e a drink containing alcohol? Never [facility] Start: 02-15-2024 End: 04-02-2024 Tobacco smoking status ALIS Smokes tobacco daily [facility] History of tobacco use Cigarette Smoker P [employer] Has the electric, [employer], [employer], or water Eved threatened to shut off services in your home in past 12Mo No [facility] (I/We) worried dasha er (my/our) food would run out before (I/we) got money to buy more. Never true [facility] Start: 04-25-2023 Tobacco smoking status NHIS Occasional tobacco smoker [facility] Start: 01-23-2024 End: 11-06-2024 Alcoholic beverage intake Lifetime non-drinker (finding) [facility] Start: 05-03-[address] [facility] Start: 07-22-2024 End: 11-16-2024 Sex Female (finding) [facility] Start: 06-30-2020 Tobacco smoking status NHIS Ex-smoker [facility] Start: 04-28-2020 End: 02-15-2024 Tobacco Comment Down to 2-3 cig/day with [facility] Goals Date Patient Goal Desired Activity /State Personal health goal Comment on above: Formatting of this n ote might be different from the original. Evaluation of progress towards goal: progressing towards safe discharge from hospital Functional Status Date Assessment Result Facility 11-16-2024 Functional status [facility] at [facility] Work Phone: 11-15-2024 Functional status Disability Sta tus Patient at [facility] Work Phone: 11-10-2024 Functional status Patient at [facility] Work Phone: 11-07-2024 Functional status Functional Sta tus Comment Independent with all ADLs and IADLs. [facility] Work Phone: 02-27-2023 Functional status Patient at [facility] Work Phone: Mental Status Date Assessment Result Facility 11-16-2024 Cognitive function Cognitive Sta tus Patient at [facility] Work Phone: 11-10-2024 Cognitive function Cognitive Sta tus Patient at [facility] Work Phone: 02-27-2023 Cognitive function Cognitive Sta tus Patient at [facility] Work Phone: Clinical Notes 04-26-2022 to 11-16-2024 Note Date & Type Note Facility 11-16-2024 Discharge summary [facility] 11-15-2024 History and physical note Note Date/Time November 15, 2024 11:57am [facility] [address] [place], [place] [id number] Psychiatry H&P Signed Patient: Barbra Claros MR#: [id number] : 1995 Acct:[id number] Age/Sex: 29 / F Adm Date: 5 Loc: 1S Room: [address] [place] [address] Type: ADM IN Attending Dr: Dashawn Moreno MD Copies to: Dashawn Moreno MD NO FAMILY PHYSICIAN Casey Munoz DO, RES~ Date of Service: 11/15/2024 HPI History of Present Illness History of present illness: Ms. Claros is a 29-year-old female with past reported history of headache, dysphagia, Crohn's disease, history of blood transfusion reaction, ovarian cyst,stomach pain, depression, anxiety, hemorrhagic cyst of right ovary, kidney stones who presents to us for treatment of major depressive disorder and suicidal ideation. Reportedly, patient presented to the ER last night due to concerns of anxiety and depression. She noted that [facility]. She noted that the medication seemed to have been working when she was discharged, but is not working now. Despite continuing her medications and using it, she has developed thoughts of wanting to kill herself. She was contemplating self harming and overdosing on pills. She denied any alcohol or drugs on the day of ER presentation. She denied hearing voices or having any homicidal ideation. She was tearful and admits to feeling panicked and anxious. She had no medical complaints at that time. Workup in the ER revealed positive urine for marijuana. Patient was medically cleared. At the time of the interview, she presented as severely depressed. Patient confirms the above story to me. She notes that she has had an amalgamation of life stressors over the past year including some trauma and family loss that shedoes not wish to discuss at this time. She confirms that she was taking her BuSpar and venlafaxine as prescribed. She was also on trazodone and hydroxyzineas needed. She notes that she started to develop worsening anxiety and depression and suicidal thoughts over the past 3 days since being discharged from the unit. Currently, she rates her depressed mood a 10 out of 10, rates her anxiety a 10 out of 10, and confirms auditory hallucinations of voices telling her to kill herself. She does not recognize some of these voices. She denies visual hallucinations. She denies SI and HI at this time. She reports poor appetite and poor sleep. She confirms feelings of hopelessness, feelings of guilt, depressed mood, and has psychomotor retardation. History of dependentpersonality tendencies is also noted on intake today. Nurse admission note was reviewed. No further pertinent findings were found. All questions and concernswere addressed with patient. Past psych history: Reports history of anxiety and depression Past hospitalizations: Confirms with last one 3 days ago. 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 Denies suicidal ideation. Reports anxiety. Mental status exam ATTITUDE: Cooperative with interview SPEECH: Slow rate, steady rhythm, low volume, soft tone MOOD: Depressed AFFECT: Flat THOUGHT PROCESS: Linear, logical, goal oriented THOUGHT CONTENT: Patient denies and does not express thoughts of or indicate behaviors contingent with suicidal ideation, homicidal ideation, or visual hallucinations, or delusion content. Patient is not responding to internal stimuli. Confirms auditory hallucinations. ORIENTATION: AO x 4 MEMORY: Memory is grossly intact. JUDGMENT: Fair INSIGHT INTO PROBLEM: Fair Patient's Strengths and Protective Factors: - Willing to comply - Good physical health. - Desire for improvement - Compliance to medications Patient's Weaknesses and Risk Factors: - Emotional lability - Severe presentation. - New onset auditory hallucinations. Attitude for Change: - Fair-good AIMS: no abnormal movements noted. Score is zero. Patient was personally seen by me on the day of the encounter. I reviewed the history and performed the hunter elements of the physical examination. I formulated the plan of care and confirmed this with the resident as noted below. [facility] Medical History (Updated 11/15/24 @ 05:33 by Ameya Salguero DO) Headache Dysphagia Crohn's disease Hx of blood transfusion reaction Ovarian cyst Stomach pain Problem List clean-up per request of Phys. EHR Cmte Ovarian cyst removal of cyst in 09/20/2019 Problem List clean-up per request of Phys. EHR Cmte Depression was on medication, stopped taking medication years ago Problem List clean-up per request of Phys. EHR Cmte Anxiety Problem List clean-up per request of Phys. EHR Cmte Hemorrhagic cyst of right ovary Problem List clean-up per request of Phys. EHR Cmte Kidney stones with last Problem List clean-up per request of Phys. EHR Cmte No pertinent past medical history Problem List clean-up per request of Phys. 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) Social History Comments: mobile home Meds Medications and Allergies Allergies chlorpheniramine (From Triaminic Cold and Cough) Allergy (Verified 11/14/24 21:38) Swelling of Lip/Tongue/Throat dextromethorphan (From Triaminic Cold and Cough) Allergy (Verified 11/14/24 21:38) Swelling of Lip/Tongue/Throat pseudoephedrine (From Triaminic Cold and Cough) Allergy (Verified 11/14/24 21:38) Swelling of Lip/Tongue/Throat triaminic Allergy (Unknown, Uncoded 01/08/24 12:35) Anaphylaxis Home Medications hydroxyzine HCl 50 mg tablet 50 mg PO TID 11/07/24 [History Confirmed 11/14/24] buspirone 5 mg tablet 5 mg PO BID 15 days #30 tabs 11/10/24 [Rx Confirmed 11/14/24] ondansetron 4 mg disintegrating tablet 4 mg PO Q6HR PRN Nausea 30 days #30 tabs 11/10/24 [Rx Confirmed 11/14/24] trazodone 50 mg tablet 50 mg PO QHS PRN Insomnia 15 days #15 tabs 11/10/24 [Rx Confirmed 11/14/24] venlafaxine 37.5 mg capsule,extended release 24 hr 112.5 mg (3 x 37.5 mg) PO QAM30 days #90 caps 11/10/24 [Rx Confirmed 11/14/24] Exam Physical Exam Vital Signs: Temp Pulse Resp BP Pulse Ox O2 Del Method 98 F 92 18 110/73 100 Room Air 11/15/24 07:30 11/15/24 07:30 11/15/24 07:30 11/15/24 07:30 11/15/24 07:30 11/15/24 08:45 Narrative: Physical exam: Const: cooperative Nutritional Appearance: Average body habitus Orientation: alert, awake and oriented x3 HEENT: Head normal to inspection, hearing grossly normal bilaterally, external nose normal, face symmetric Eyes: appearance normal, both eyes and all related structures, sclerae normal Neck: normal visual inspection and full ROM Resp: normal respiratory effort, able to speak in complete sentences and symmetric chest movement Cardio: regular rate GI: normal to inspection and non-distended : deferred Skin: no rashes or lesions noted Neuro: CNI: Normal olfaction, CNII: Visual rasheed intact, CNIII,IV,: EOM intact, no nystagmus. Pupils equal, round, reactive to light and accommodation, CNV: Sensation intact to light touch, CNVII: Raises eyebrows, smile/frown, puff out cheeks symmetrically, CNVIII: Hearing intact bilaterally, CNIX,X: Voice normal, soft palate elevation normal, symmetrical, CNXI: Shoulder shrug strong, equal bilaterally, CNXII: Tongue protrusion midline, movement symmetrical. Extrem: normal to inspection and full ROM Results - Psychiatry Labs 11/14/24 21:57 11/14/24 21:57 Psychiatry Labs: 11/14/24 11/14/24 21:57 22:03 RBC 4.17 Hgb 12.2 Hct 35.9 MCV 86.2 MCH 29.2 MCHC 33.9 RDW 14.5 Plt Count 231 MPV 7.7 Sodium 139 Potassium 3.7 Chloride 105 Carbon Dioxide 27.8 Anion Gap 9.9 BUN 10 Creatinine 0.54 L Calcium 8.9 Total Bilirubin 0.2 L AST 36 ALT 36 Alkaline Phosphatase 54 Total Protein 7.1 Albumin 4.3 Urine Color Yellow Urine Appearance Clear Urine pH 7.0 Ur Specific [place] 1.031 H Urine Protein 20 H Urine Glucose (UA) Normal Urine Ketones Negative Urine Occult Blood Negative Urine Nitrite Negative Ur Leukocyte Esterase Negative Urine RBC 3-4 Urine WBC 1-2 Assessment/Plan (1) Major depressive disorder: (2) Suicidal ideation: Plan Ms. Claros is a 29-year-old female with past psychiatric history of anxiety and depression who presents to us for treatment of worsening depression and suicidalideation. Longstanding medications include BuSpar, venlafaxine, trazodone, hydroxyzine Continue BuSpar 5 mg twice daily. Continue trazodone and hydroxyzine p.o. as needed. Alter venlafaxine dose to 150 mg p.o. once a day. Add Abilify 10 mg p.o. once a day at nighttime. Risks, benefits, and indications are discussed Monitor mental status Encourage psychotherapy Documented By: Dashawn Moreno MD 11/15/24 1049 Signed By: <Electronically signed by Dashawn Moreno MD> 11/15/24 1157 <Electronically signed by DO ARABELLA Munoz> 11/15/24 105 [facility] Work Phone: [phone] [place] [address] Psychiatry H&P Signed Patient: Barbra Claros MR#: [id number] : 1995 Acct:[id number] Age/Sex: 29 / F Adm Date: 5 Loc: 1S Room: [address] [place] [address] Type: ADM IN Attending Dr: Dashawn Moreno MD Copies to: Dashawn Moreno MD NO FAMILY PHYSICIAN Casey Munoz DO, RES~ Date of Service: 11/15/2024 HPI History of Present Illness History of present illness: Ms. Claros is a 29-year-old female with past reported history of headache, dysphagia, Crohn's disease, history of blood transfusion reaction, ovarian cyst,stomach pain, depression, anxiety, hemorrhagic cyst of right ovary, kidney stones who presents to us for treatment of major depressive disorder and suicidal ideation. Reportedly, patient presented to the ER last night due to concerns of anxietyand depression. She noted that she got out of the psych hospital 3 days ago. She noted that the medication seemed to have been working when she was discharged, but is not working now. Despite continuing her medications and using it, she has developed thoughts of wanting to kill herself. She was contemplating self harming and overdosing on pills. She denied any alcohol or drugs on the day of ER presentation. She denied hearing voices or having any homicidal ideation. She was tearful and admits to feeling panicked and anxious. She had no medical complaints at that time. Workup in the ER revealed positive urine for marijuana. Patient was medically cleared. At the time of the interview, she presented as severely depressed. Patient confirms the above storyto me. She notes that she has had an amalgamation of life stressors over the past year including some trauma and family loss that shedoes not wish to discuss at this time. She confirms that she was taking her BuSpar and venlafaxine as prescribed. She was also on trazodone and hydroxyzineas needed. She notes that she started to develop worsening anxiety and depression and suicidal thoughts over the past 3 days since being discharged from the unit. Currently, she rates her depressed mood a 10 outof 10, rates her anxiety a 10 out of 10, and confirms auditory hallucinations of voices telling herto kill herself. She does not recognize some of these voices. She denies visual hallucinations. Shedenies SI and HI at this time. She reports poor appetite and poor sleep. She confirms feelings of hopelessness, feelings of guilt, depressed mood, and has psychomotor retardation. History of dependent personality tendencies is also noted on intake today. Nurse admission note was reviewed. No furtherpertinent findings were found. All questions and concernswere addressed with patient. Past psych history: Reports history of anxiety and depression Past hospitalizations: Confirms with last one 3 days ago. 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 Denies suicidal ideation. Reports anxiety. Mental status exam ATTITUDE: Cooperative with interview SPEECH: Slow rate, steady rhythm, low volume, soft tone MOOD: Depressed AFFECT: Flat THOUGHT PROCESS: Linear, logical, goal oriented THOUGHT CONTENT: Patient denies and does not express thoughts of or indicate behaviors contingent with suicidal ideation, homicidal ideation, or visual hallucinations, or delusion content. Patient isnot responding to internal stimuli. Confirms auditory hallucinations. ORIENTATION: AO x 4 MEMORY: Memory is grossly intact. JUDGMENT: Fair INSIGHT INTO PROBLEM: Fair Patient's Strengths and Protective Factors: - Willing to comply - Good physical health. - Desire for improvement - Compliance to medications Patient's Weaknesses and Risk Factors: - Emotional lability - Severe presentation. - New onset auditory hallucinations. Attitude for Change: - Fair-good AIMS: no abnormal movements noted. Score is zero. Patient was personally seen by me on the day of the encounter. I reviewed the history and performedthe hunter elements of the physical examination. I formulated the plan of care and confirmed this withthe resident as noted below. [facility] Medical History (Updated 11/15/24 @ 05:33 by Ameya Salguero DO) Headache Dysphagia Crohn's disease Hx of blood transfusion reaction Ovarian cyst Stomach pain Problem List clean-up per request of Phys. EHR Cmte Ovarian cyst removal of cyst in 09/20/2019 Problem List clean-up per request of Phys. EHR Cmte Depression was on medication, stopped taking medication years ago Problem List clean-up per request of Phys. EHR Cmte Anxiety Problem List clean-up per request of Phys. EHR Cmte Hemorrhagic cyst of right ovary Problem List clean-up per request of Phys. EHR Cmte Kidney stones with last Problem List clean-up per request of Phys. EHR Cmte No pertinent past medical history Problem List clean-up per request of Phys. 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) Social History Comments: mobile home Meds Medications and Allergies Allergies chlorpheniramine (From Triaminic Cold and Cough) Allergy (Verified 11/14/24 21:38) Swelling of Lip/Tongue/Throat dextromethorphan (From Triaminic Cold and Cough) Allergy (Verified 11/14/24 21:38) Swelling of Lip/Tongue/Throat pseudoephedrine (From Triaminic Cold and Cough) Allergy (Verified 11/14/24 21:38) Swelling of Lip/Tongue/Throat triaminic Allergy (Unknown, Uncoded 01/08/24 12:35) Anaphylaxis Home Medications hydroxyzine HCl 50 mg tablet 50 mg PO TID 11/07/24 [History Confirmed 11/14/24] buspirone 5 mg tablet 5 mg PO BID 15 days #30 tabs 11/10/24 [Rx Confirmed 11/14/24] ondansetron 4 mg disintegrating tablet 4 mg PO Q6HR PRN Nausea 30 days #30 tabs 11/10/24 [Rx Confirmed 11/14/24] trazodone 50 mg tablet 50 mg PO QHS PRN Insomnia 15 days #15 tabs 11/10/24 [Rx Confirmed 11/14/24] venlafaxine 37.5 mg capsule,extended release 24 hr 112.5 mg (3 x 37.5 mg) PO QAM30 days #90 caps 11/10/24 [Rx Confirmed 11/14/24] Exam Physical Exam Vital Signs: Temp Pulse Resp BP Pulse Ox O2 Del Method 98 F 92 18 110/73 100 Room Air 11/15/24 07:30 11/15/24 07:30 11/15/24 07:30 11/15/24 07:30 11/15/24 07:30 11/15/24 08:45 Narrative: Physical exam: Const: cooperative Nutritional Appearance: Average body habitus Orientation: alert, awake and oriented x3 HEENT: Head normal to inspection, hearing grossly normal bilaterally, external nose normal, face symmetric Eyes: appearance normal, both eyes and all related structures, sclerae normal Neck: normal visual inspection and full ROM Resp: normal respiratory effort, able to speak in complete sentences and symmetric chest movement Cardio: regular rate GI: normal to inspection and non-distended : deferred Skin: no rashes or lesions noted Neuro: CNI: Normal olfaction, CNII: Visual rasheed intact, CNIII,IV,: EOM intact, no nystagmus. Pupils equal, round, reactive to light and accommodation, CNV: Sensation intact to light touch, CNVII:Raises eyebrows, smile/frown, puff out cheeks symmetrically, CNVIII: Hearing intact bilaterally, CNIX,X: Voice normal, soft palate elevation normal, symmetrical, CNXI: Shoulder shrug strong, equal bilaterally, CNXII: Tongue protrusion midline, movement symmetrical. Extrem: normal to inspection and full ROM Results - Psychiatry Labs 11/14/24 21:57 11/14/24 21:57 Psychiatry Labs: 11/14/24 11/14/24 21:57 22:03 RBC 4.17 Hgb 12.2 Hct 35.9 MCV 86.2 MCH 29.2 MCHC 33.9 RDW 14.5 Plt Count 231 MPV 7.7 Sodium 139 Potassium 3.7 Chloride 105 Carbon Dioxide 27.8 Anion Gap 9.9 BUN 10 Creatinine 0.54 L Calcium 8.9 Total Bilirubin 0.2 L AST 36 ALT 36 Alkaline Phosphatase 54 Total Protein 7.1 Albumin 4.3 Urine Color Yellow Urine Appearance Clear Urine pH 7.0 Ur Specific [place] 1.031 H Urine Protein 20 H Urine Glucose (UA) Normal Urine Ketones Negative Urine Occult Blood Negative Urine Nitrite Negative Ur Leukocyte Esterase Negative Urine RBC 3-4 Urine WBC 1-2 Assessment/Plan (1) Major depressive disorder: (2) Suicidal ideation: Plan Ms. Claros is a 29-year-old female with past psychiatric history of anxiety and depression who presents to us for treatment of worsening depression and suicidalideation. Longstanding medications include BuSpar, venlafaxine, trazodone, hydroxyzine Continue BuSpar 5 mg twice daily. Continue trazodone and hydroxyzine p.o. as needed. Alter venlafaxine dose to 150 mg p.o. once a day. Add Abilify 10 mg p.o. once a day at nighttime. Risks, benefits, and indications are discussed Monitor mental status Encourage psychotherapy Documented By: Dashawn Moreno MD 11/15/24 1049 Signed By: 11/15/24 1157 11/15/24 1059 [facility]05-25-[address] [address] Discharge Summary Signed Patient: Barbra Claros MR#: [id number] : 1995 Acct:[id number] Age/Sex: 29 / F Adm Date: 5 Loc: Room: [address] [place] [address]: Kit Gutierrez MD Copies to: Kit Gutierrez MD NO FAMILY PHYSICIAN~ Providers Date of Discharge: 11/10/24 Discharging Provider: Kit Gutierrez Primary Care Provider: PHYSICIAN NO FAMILY Consults: 11/07/24 03:50 Consult to Case Management Routine Comment: CM Reason for Consult: Other Other and/or Abuse/Neglect Consult Reasons: Hx of abuse. 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 Discharge Diagnosis (1) Suicidal ideation: (2) Major depressive disorder: Final Diagnosis Final Discharge Diagnosis: MDD Summary Hospital Course Hospital course: History of present illness: Ms. Claros is a 29 year old female with a reported history of?Crohn's disease, blood transfusion reaction, ovarian cyst, depression, anxiety who presents for inpatient treatment due to depression andsuicidal ideation with new onset auditory hallucinations. Reportedly, the patient presented to the ER stating that she has not right and has been having mental health issues recently with thoughts ofsuicide. Told the ED physician that she was contemplating taking a bunch of pills to kill herself. Also told ED provider that she has been hearing whispers which is new for her. UDS positive for marijuana only. She told night nurse that she has been feeling suicidal for a couple of months but it has been worse recently. 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 Patient states she was brought to the ER by a friend but sat in the car crying for over an hour before coming in to be seen. Patient reports triggers for her SI include a recent separation from her significant other, difficulty with her chantal gonzales's father, and toxic relationships with her parents. Patient reports that she feels defeated, hopeless, does not feel strong and asked would my kids be better off without me? Patient stated that she feels like she is a burden and that she needs to be somewhere safe because she wants to take a bunch of her pills. 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 She was agreeable to treatment and hopes to find a way to manage the way she has been feeling. Throughout admission interview, patient's affect was flat and voice was quiet/monotone. She was cooperative with admission assessment. Patient continueddepression, significant anxiety, and ongoing SI. She states she will remain safeon the unit. She denies AVH and is not delusional. Patient was personally seen by me on the day of the encounter. I reviewed the history and performedthe hunter elements of the assessment. I formulated the planof care and confirmed this with the medical student as noted below At the time of the interview, he presented as depressed and tearful, particularly when discussing her children.? This morning admits to depression and anxiety with feelings of hopelessness. She does not like being here as she does not know anyone and misses her children very much. Has had a historyof depression and anxiety before but recently has been hearing voices particularly on her left sideand ever whispering to her. This is a new symptom and is very scary to her. Recently has been having difficulty sleeping and decreased appetite with a lot of nausea and chest pain. Has been having increasingly frequent panic attacks with shortness of breath nausea and heart palpitations. Specifically last Monday, she was sent to [facility] due to panic attacks at which time they suggested that she voluntarily admit herself to [address] but said she was talked out of it by her mother. Has been wanting to increase her venlafaxine dose recently. Tells me that she does not have a PCP or mental provider in the community but her medications are managed by her detective and intelligence analyst Dr. Gurrola. This morning she denies SI, HI, delusions. The course of treatment: The patient initially presented as depressed and said her OB recommended inpatient psychiatric admission Psychotropic medications targeting mood and anxiety were started, and she was provided supportive and reality-oriented therapy. Effexor was increased to 11.25mg PO Q daily She also benefited from PRNTrazodone and Vistaril. She felt that her symptoms have improved on the current medication regimen,and she has been compliant with treatment and reported no side effects. Her sleep and appetite were okay. She has been attending groups and described them as helpful in building coping skills. The patient has denied any access to firearms or lethal weapons. She felt better than before coming to the hospital and feels hopeful regarding her future. She understands the importance of outpatient follow-up to ensure the stability of her symptoms. She denied suicidal or homicidal ideation and verbalized the intent to notify the staff if she has such thoughts. No suicidal or self-injurious behaviors occurred during inpatient treatment. She denied any symptoms that may pose a threat to herself or others. She was out in the common areasocializing and communicating with peers appropriately. On the day of discharge she reported that she is feeling better. She denied anysuicidal thoughts. She was looking forward to returning home andfollowing withoutpatient services. She stated that her family was supportive and felt safe athome. She denied any depression, suicidality, hallucinations, or cady. The patient described her thoughts as positive and denied hopelessness. She is in good spirits and is at her baseline. She did not meet the criteria for involuntary psychiatric hospitalization. The patient benefited from attending inpatient treatment and was suitable for outpatient follow-up. I explained to the patient that her hospital discharge does not mean her medical care ends here. She needs consistent outpatient follow-up and cognitive behavioral therapyand should communicate from this point on with her outpatient team. Patient's illness, medication side effects, benefits and risks were reviewed with her prior to discharge. The patient voiced understanding of their diagnosis, the medications recommended along with the importance of medication compliance. The patient was counseled not to stop medications without the supervision of a psychiatrist. The patient was counseled that if there was an increase in mental health issues, depression, anxiety, medication side effects, self harm or thoughts of harm to others,the patient was not to harm them self or stop treatment, but to call [facility], 911 or come to the nearest emergency room. The patient also received information regarding advanced mental and medic al health directives during this hospitalization to discuss with their outpatient provider. The plan was discussed with the patient, the nurses and thecase management department. The patient voiced agreement with the plan. Discharge disposition: Home with mom. Coordinated via case management. Safe discharge Planning: With the cessation of all suicidal ideation, improvements in mood, and absence of any psychotic symptoms at the time of discharge, aftercare plans were solidified. She was able to formulate a believable Safety Plan. Discharge plans were discussed with the patient, her family, and the treatment team. All agreed with the discharge plan. On the day of discharge, she was evaluated and had no complaints. She denied any SI/HI. She agreed to follow up with outpatient treatment as arranged by case management. She had no complications during her stay. Factors to be considered are the chronicity and severity of the symptoms and signs, associated comorbidity, and differential diagnosis-motivation to get in treatment, response to treatment, adherenceto treatment recommendations, and using skills. The patient's verbal consent was provided. Suicide risk assessment: A thorough review of risk and protective factors was conducted. I discussed with the patient the following recommendations that wouldhelp reduce suicide, which include limiting the number of medications to a 15-day supply with one refill at the time of discharge to avoid potential overdose,consistent outpatient follow-up, preferably within seven days of release, involvingsupportive family/friends in her care, and her desire to live. We also discussed the availability of outpatient DBT groups, which can be lifesaving. She reports good therapeutic alliance, good response to medication management and therapy, availability of local mental health services and willingness to follow up, lack of suicidal ideation, intent or plan, lack of impulsivity, agitation, or psychotic behavior. The patient is future-oriented and understands the importance of outpatient follow-up.Psychiatric experts agree that predicting suicide is impossible, but considering positive factors like family and [place], lack of access to firearms, and desire to continue treatment makes her currentsuicide risk minimal. Given the chronicity of suicidality, we discussed measures to help her with long-term safety. The patient is not suicidal or psychotic now. To help decreaseher suicide risk, as best I can, I am referring her for outpatient treatment andCBT for long-term follow-up to have somewhere to go and someoneto manage her assymptoms and stressors develop. This is the best way to keep her alive. So, we discussed a crisis plan for future suicidality: at the first sign of distress, she will call the hotline; if this is not sufficient, she will 911, then call family members or friends; ultimately, she willcome to the ER. Violence Risk Assessment: Chronic: Gender: lower than males Modifiable: good response to treatment, good therapeutic alliance, availability of local mental health services and willingness to follow up, lack of homicidal ideation (intent or plan) on the day ofdischarge and during hospitalization, lack of substance abuse, future oriented. No history of recent violence reported. Furthermore, No access to lethal means as currently have no weapons. No aggressive behavior during hospitalization. She has been social with peers on the unit and has been attending groups. Current Violence Risk Assessment: Low acute risk given known chronic and modifiable risk factors. Patient did not meet criteria for probate and his behavior has been overall appropriate on the unit. She has denied homicidal thoughts and has not exhibitedany aggressive behavior. She is not an acute risk to himself or others evidenced by subjective and objective data during his hospitalization. She is compliant with meds which can improve impulse control and mood. Safety: The patient is not acutely psychotic and is safe to continue treatment on an outpatient basis. The patient was made aware of the 09/01 emergency services of the crisis center. She was advised to call 911 or go to the nearest ER in case of a crisis ( (including having thoughts of harming herself or others). Typical short- and long-term side effects of the proposed medication regimen, including contraindications and clinically significant interactions, were discussed with the patient. Side effects include but not limited to sedation, overdose, rash, movement disorders (TD, EPS), weight gain, and appetite changesand advised the patient not to drive or drink while taking these meds. Patient should reach out to medical provider if any of these side effects occur. Using drugs can increase risk of . We also discussed risk of overdose with this current med regimen. Patient understands that it is impossible to gurantee an outcome with medications. Patient indicates an understanding that benefits o utweigh the risks. Continue supportive therapy with some CBT techniques. Psycho-education and compliance counseling were provided. She denies current and is aware to notify her psychiatrist if she becomes due tothe risk of harm to the fetus. Avoid taking psychiatric medications with driving. MSE: Orientation: Alert and oriented to person, place, and time. Appearance/Behavior: Fair grooming and hygiene, calm, cooperative, engaged in the interview. Good eye contact. Normal psychomotor activity. Speech: normal rate, rhythm, volume, and tone. Non pressured. Knowledge: Appropriate for age and level of education Mood: okay Affect: reactive, mood-congruent Thought process: linear, logical, and goal-oriented Thought content: No SI/HI. No AVH. No delusions. Does not appear to be responding to internal stimuli. Concentration: Grossly intact based on track during the interview Associations: No loosening of associations Memory: Able to recall recent and remote historical information Insight: Fair, able to appreciate current symptoms and need for outpatient treatment Judgment: fair, agreed to follow treatment recommendations, socially appropriate with interviewer and staff. Time spent discussing smoking cessation with patient: more than 10 minutes Condition Condition at Discharge: Stable Status at Discharge Functional status at discharge: independent ambulation Time Spent with Patient Time spent providing/coordinating discharge services (# min): 99 Discharge Plan Discharge Plan Patient Disposition: Home Activity: No Activity Restriction Diet: Regular Instructions: Know your Meds Prescriptions: New buspirone 5 mg Tablet 5 mg PO BID 15 Days Qty: 30 2RF venlafaxine 37.5 mg Capsule,Extended Release 24hr 112.5 mg PO QAM 30 Days Qty: 90 1RF ondansetron 4 mg Tablet,Disintegrating 4 mg PO Q6HR PRN (Reason: Nausea) 30 Days Qty: 30 0RF trazodone 50 mg Tablet 50 mg PO QHS PRN (Reason: Insomnia) 15 Days Qty: 15 1RF hydroxyzine pamoate 50 mg Capsule 50 mg PO Q6H PRN (Reason: Anxiety) 15 Days Qty: 30 0RF Continued hydroxyzine HCl 50 mg tablet 50 mg PO TID Discontinued venlafaxine 75 mg capsule,extended release 24hr 75 mg PO QAM Patient Comments: with breakfast Follow Up: [facility] [Outside] (new referral) [facility] [Outside] (for any urgent medical needs) Exam Physical Exam Vital Signs: Temp Pulse Resp BP Pulse Ox O2 Del Method 98.2 F 95 16 119/72 97 Room Air 11/09/24 19:59 11/09/24 19:59 11/09/24 19:59 11/09/24 19:59 11/09/24 19:59 11/09/24 21:00 Documented By: Kit Gutierrez MD 5 0730 Signed By: 11/10/24 0731 [facility]05-24-2025 Progress note Author Kit fox [facility] Note Date/Time November 09, 2024 7:31a m [facility] [address] [place] [address] Psychiatry Progress Note Signed Patient: Barbra Claros MR#: [id number] : 1995 Acct:[id number] Age/Sex: 29 / F Adm Date: 5 Loc: 1S Room: [address] [place] [address] Type : ADM IN Attending Dr: Kit Gutierrez MD Copies to: ~ Date of Service: 11/09/2024 Subjective Subjective Narrative: No overnight events. Patient said that Buspar is helping with anxiety and noticed a better ability to manage her emotions. She also reports improvement of sleep and feels that her energy is improving. Affect is improving. She denies SI, HI, AVH, delusions. Participated in some group activities. I talked with about the importance of ongoing treatment for depression. She stated that she understood and accepted outpatient follow up. I have encouragedher to schedule twice weekly sessions of psychotherapy. While her mental healthsymptoms are chronic, she does not currently pose a threat to self or others. She reported that she was self harming about 1 month ago but no self harm behaviors recently. She has no history of recent suicide attempts, presented as future-oriented, participated in group activities, articulated needs appropriately, and displayedno self-harm behaviors since being admitted to the inpatient unit. Imminent riskis low, given the factors noted above. She denied any current symptoms that would pose a threat to herself or others. Further inpatient hospitalization is unlikely to mitigate chronic suicide risk, and pt agrees to f/u with outpatient psych care. We also discussed the benefits of outpatient CBT and DBT to help with depression and reduce suicide risk. She identified protective factors and calming techniques and created a safety plan. At this time, the patient has maximized the benefit from inpatient hospitalization, as can be determined with reasonable medical certainty. She said her family will pick her up tomorrow or her BF. As we assessed her discharge readiness, the patient understood the importance ofcontinued outpatient treatment and medication adherence. The patient voiced understanding of the discharge plan discussed with the treatment team. While it is impossible to predict suicide or homicide, my discussion with staff indicated the patient manifested a low risk of acute harm to self or others and a low-moderate chronic risk, evidenced by the psychiatric history andthe subjective and objective condition at that time. The patient denies any active psychiatric signs and symptoms significantly deviating from baseline functioning. Residual suicide/homicide/psychosis/violence/inability to care for self is low risk as maximization of inpatient psychiatry treatment benefit was achieved to address acute risks, which initially led to admission. Overall, she has a positive mood and attitude towards life. Mental Status: grossly normal Speech and Movement: speech and movement are normal and speech clear Appearance: dressed casually Mood: Euthymic mood Affect: Normal affect Attitude: cooperative Thought Process: Normal Thought Content: Denied hallucinations, no homicidally, and no suicidality Insight: fair Judgment: fair Impulse control: fair Exam Physical Exam Vital Signs: Temp Pulse Resp BP Pulse Ox O2 Del Method 97.6 F 98 20 121/84 98 Room Air 11/08/24 23:30 11/08/24 23:30 11/08/24 23:30 11/08/24 23:30 11/08/24 23:30 11/08/24 23:30 Assessment/Plan Assessment/Plan (1) Suicidal ideation: (2) Major depressive disorder: Plan 1. Patient reports symptom improvement and denied any SI/HI. Continue buspirone5 mg p.o. twice daily for anxiety, Effexor to 112.5 mg p.o. every morning (not PRN) (Risks, benefits, and indications are discussed) 2. Monitor mental status 3. Encourage psychotherapy 4. Case management will work on a safe discharge plan.? Documented By: Kit Gutierrez MD [id number] Signed By: <Electronically signed by Kit Gutierrez MD> 11/09/24 8613 [facility] Work Phone: 1(197) 184-900105-24-2025 [place] [id number] Psych[place] Progress Note Signed Patient: Barbra Claros MR#: [id number] : 1995 Acct:[id number] Age/Sex: 29 / F Adm Date: 5 Loc: 1S Room: [address] [place] [address] Type : ADM IN Attending Dr: Kit Gutierrez MD Copies to: ~ Date of Service: 11/09/2024 Subjective Subjective Narrative: No overnight events. Patient said that Buspar is helping with anxiety and noticed a better ability to manage her emotions. She also reports improvement of sleep and feels that her energy is improving. Affect is improving. She denies SI, HI, AVH, delusions. Participated in some group activities. I talked with about the importance of ongoing treatment for depression. She stated that she understood and accepted outpatient follow up. I have encouragedher to schedule twice weekly sessions ofpsychotherapy. While her mental healthsymptoms are chronic, she does not currently pose a threat toself or others. She reported that she was self harming about 1 month ago but no self harm behaviorsrecently. She has no history of recent suicide attempts, presented as future-oriented, participated in group activities, articulated needs appropriately, and displayedno self-harm behaviors since being admitted to the inpatient unit. Imminent riskis low, given the factors noted above. She denied any current s ymptoms that would pose a threat to herself or others. Further inpatient hospitalization is unlikely to mitigate chronic suicide risk, and pt agrees to f/u with outpatient psych care. We also discussed the benefits of outpatient CBT and DBT to help with depression and reduce suicide risk. She identified protective factors and calming techniques and created a safety plan. At this time, the patient has maximized the benefit from inpatient hospitalization, as can be determined with reasonable medical certainty. She said her family will pick her up tomorrow or her BF. As we assessed her discharge readiness, the patient understood the importance ofcontinued outpatient treatment and medication adherence. The patient voiced understanding of the discharge plan discussed with the treatment team. While it is impossible to predict suicide or homicide, my discussion with staff indicated the patient manifested a low risk of acute harm to self or others and a low-moderate chronic risk, evidenced by the psychiatric history andthe subjective and objective condition at that time. The patient denies any active psychiatric signs and symptoms significantly deviating from baseline functioning. Residual suicide/homicide/psychosis/violence/inability to care for self is low risk as maximization of inpatient psychiatry treatment benefit was achieved to address acute risks, which initially led to admission. Overall, she has a positive mood and attitude towards life. Mental Status: grossly normal Speech and Movement: speech and movement are normal and speech clear Appearance: dressed casually Mood: Euthymic mood Affect: Normal affect Attitude: cooperative Thought Process: Normal Thought Content: Denied hallucinations, no homicidally, and no suicidality Insight: fair Judgment: fair Impulse control: fair Exam Physical Exam Vital Signs: Temp Pulse Resp BP Pulse Ox O2 Del Method 97.6 F 98 20 121/84 98 Room Air 11/08/24 23:30 11/08/24 23:30 11/08/24 23:30 11/08/24 23:30 11/08/24 23:30 11/08/24 23:30 Assessment/Plan Assessment/Plan (1) Suicidal ideation: (2) Major depressive disorder: Plan 1. Patient reports symptom improvement and denied any SI/HI. Continue buspirone5 mg p.o. twice daily for anxiety, Effexor to 112.5 mg p.o. every morning (not PRN) (Risks, benefits, and indications are discussed) 2. Monitor mental status 3. Encourage psychotherapy 4. Case management will work on a safe discharge plan.? Documented By: Kit Gutierrez MD 5 [id number] Signed By: 11/09/24 0731 [facility]05-23-2025 Progress note Author Kit fox [facility] Note Date/Time November 08, 2024 1:42p m [facility] [address] [place] [address] Psychiatry Progress Note Signed Patient: Barbra Claros MR#: [id number] : 1995 Acct:[id number] Age/Sex: 29 / F Adm Date: 5 Loc: Room: [address] [place] [address] Type : ADM IN Attending Dr: Kit Gutierrez MD Copies to: ~ Date of Service: 11/08/2024 Subjective Subjective Narrative: Today's hospital day 2. No overnight events. Says she slept well for the firsttime in weeks, all the way through the night. However she woke up with this badanxiety this morning because she is worried about her kids. Her depression is much more manageable but still there. She did share some insight that she is recently getting into her condition with me, she is now recognizing that cutting, which she used to do, is not a good coping skill. She would like to try journaling instead. She has no complaints about her medication. She denies SI,HI, AVH, delusions. Participated in some group activities. Patient was personally seen by me on the day of the encounter. I reviewed the history and performed the hunter elements of the assessment. I formulated the planof care and confirmed this with the medical student as noted below Mental status exam ATTITUDE: Cooperative with interview SPEECH: Regular rate, steady rhythm, normal volume, and soft tone MOOD: Anxious AFFECT: Dysthymic, tearful THOUGHT PROCESS: Linear, logical, goal oriented THOUGHT CONTENT: Patient denies and does not express thoughts of or indicate behaviors contingent with suicidal ideation, homicidal ideation, auditory or visual hallucinations, or delusion content. Patient is not responding to internal stimuli. ORIENTATION: Patient is oriented to person, place, time, and situation MEMORY: Patient's memory is grossly intact JUDGMENT: Limited INSIGHT INTO PROBLEM: Limited Exam Physical Exam Vital Signs: Temp Pulse Resp BP Pulse Ox O2 Del Method 97.9 F 68 16 107/64 96 Room Air 11/08/24 07:30 11/08/24 07:30 11/08/24 07:30 11/08/24 07:30 11/08/24 07:30 11/08/24 07:30 Assessment/Plan Assessment/Plan (1) Suicidal ideation: (2) Major depressive disorder: Plan 1. Add buspirone 5 mg p.o. twice daily for anxiety. Continue Effexor to 112.5 mg p.o. every morning (not PRN) (Risks, benefits, and indications are discussed) 2. Monitor mental status 3. Encourage psychotherapy 4. Case management will work on a safe discharge plan.? Documented By: Kit Gutierrez MD [id number] Signed By: <Electronically signed by Kit Gutierrez MD> 11/08/24 1342 [facility] Work Phone: 1(415) 334-922405-23-2025 [place] [id number] Psychiatry Progress Note Signed Patient: Barbra Claros MR#: [id number] : 1995 Acct:[id number] Age/Sex: 29 / F Adm Date: 5 Loc: Room: [address] [place] [address] Type : ADM IN Attending Dr: Kit Gutierrez MD Copies to: ~ Date of Service: 11/08/2024 Subjective Subjective Narrative: Today's hospital day 2. No overnight events. Says she slept well for the firsttime in weeks, all the way through the night. However she woke up with this badanxiety this morning because she is worried about her kids. Her depression is much more manageable but still there. She did share some insightthat she is recently getting into her condition with me, she is now recognizing that cutting, whichshe used to do, is not a good coping skill. She would like to try journaling instead. She has no complaints about her medication. She denies SI,HI, AVH, delusions. Participated in some group activities. Patient was personally seen by me on the day of the encounter. I reviewed the history and performedthe hunter elements of the assessment. I formulated the planof care and confirmed this with the medical student as noted below Mental status exam ATTITUDE: Cooperative with interview SPEECH: Regular rate, steady rhythm, normal volume, and soft tone MOOD: Anxious AFFECT: Dysthymic, tearful THOUGHT PROCESS: Linear, logical, goal oriented THOUGHT CONTENT: Patient denies and does not express thoughts of or indicate behaviors contingent with suicidal ideation, homicidal ideation, auditory or visual hallucinations, or delusion content. Patient is not responding to internal stimuli. ORIENTATION: Patient is oriented to person, place, time, and situation MEMORY: Patient's memory is grossly intact JUDGMENT: Limited INSIGHT INTO PROBLEM: Limited Exam Physical Exam Vital Signs: Temp Pulse Resp BP Pulse Ox O2 Del Method 97.9 F 68 16 107/64 96 Room Air 11/08/24 07:30 11/08/24 07:30 11/08/24 07:30 11/08/24 07:30 11/08/24 07:30 11/08/24 07:30 Assessment/Plan Assessment/Plan (1) Suicidal ideation: (2) Major depressive disorder: Plan 1. Add buspirone 5 mg p.o. twice daily for anxiety. Continue Effexor to 112.5 mg p.o. every morning(not PRN) (Risks, benefits, and indications are discussed) 2. Monitor mental status 3. Encourage psychotherapy 4. Case management will work on a safe discharge plan.? Documented By: Kit Gutierrez MD 5 [id number] Signed By: 11/08/24 1342 [facility]05-22-2025 History and physical note Author Kit fox [facility] Note Date/Time November 07, 2024 1:12p m [facility] [address] [place] [address] Psychiatry H&P Signed Patient: Barbra Claros MR#: [id number] : 1995 Acct:[id number] Age/Sex: 29 / F Adm Date: 5 Loc: Room: [address] [place] [address] Type: ADM IN Attending Dr: Kit Gutierrez MD Copies to: Kit Gutierrez MD NO FAMILY PHYSICIAN~ Date of Service: 11/07/2024 HPI History of Present Illness History of present illness: Ms. Claros is a 29 year old female with a reported history of?Crohn's disease, blood transfusion reaction, ovarian cyst, depression, anxiety who presents for inpatient treatment due to depression and suicidal ideation with new onset auditory hallucinations. Reportedly, the patient presented to the ER stating that she has not right and has been having mental health issues recently with thoughts of suicide. Told the ED physician that she was contemplating taking a bunch of pills to kill herself. Also told ED provider that she has been hearing whispers which is new for her. UDS positive for marijuana only. She told night nurse that she has been feeling suicidal for a couple of months but it has been worse recently. 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 Patient states she was brought to the ER by a friend but sat in the car crying for over an hour before coming in to be seen. Patient reports triggers for her SI include a recent separation from her significant other, difficulty with her children's father, and toxic relationships with her parents. Patient reports that she feels defeated, hopeless, does not feel strong and asked would my kids be better off without me? Patient stated that she feels like she is a burden and that she needs to be somewhere safe because she wants to take a bunch of her pills. 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 She was agreeable to treatment and hopes to find a way to manage the way she has been feeling. Throughout admission interview, patient's affect was flat and voice was quiet/monotone. She was cooperative with admission assessment. Patient continueddepression, significant anxiety, and ongoing SI. She states she will remain safeon the unit. She denies AVH and is not delusional. Patient was personally seen by me on the day of the encounter. I reviewed the history and performed the hunter elements of the assessment. I formulated the planof care and confirmed this with the medical student as noted below At the time of the interview, he presented as depressed and tearful, particularly when discussing her children.? This morning admits to depression and anxiety with feelings of hopelessness. She does not like being here as she does not know anyone and misses her children very much. Has had a history of depression and anxiety before but recently has been hearing voices particularly on her left side and ever whispering to her. This is a new symptom and is very scary to her. Recently has been having difficulty sleeping and decreased appetite with a lot of nausea and chest pain. Has been having increasingly frequent panic attacks with shortness of breath nausea and heart palpitations. Specifically last Monday, she was sent to [facility] due to panic attacks at which time they suggested that she voluntarily admit herself to [facility] [address] but said she was talked out of it by her mother. Has been wanting to increase her venlafaxine dose recently. Tells me that she does not have a PCP or mental provider in the community but her medications are managed by her detective and intelligence analyst Dr. Gurrola. This morning she denies SI, HI, delusions. 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, vapes every day with nicotine Living: Lives in a trailer in [place] with her 4 children Employment: Unemployed Review of symptoms: Constitutional: Denies chills and denies fever(s) Eyes: Denies change in vision ENT: Denies abnormal hearing Cardiovascular: Denies chest pain Respiratory: Denies chest congestion and Denies cough Gastrointestinal: Denies change in bowel habits Genitourinary: Denies dysuria Musculoskeletal: Headache Integumentary/Breasts: Denies dry skin Neurologic: Denies abnormal gait and Denies abnormal movements Psychiatric: Reports depression and suicidal ideation Mental status exam ATTITUDE: Cooperative with interview SPEECH: Regular rate, steady rhythm, normal volume, and soft tone MOOD: Depressed AFFECT: Dysthymic, tearful THOUGHT PROCESS: Linear, logical, goal oriented THOUGHT CONTENT: Patient denies and does not express thoughts of or indicate behaviors contingent with suicidal ideation, homicidal ideation, auditory or visual hallucinations, or delusion content. Patient is not responding to internal stimuli. ORIENTATION: Patient is oriented to person, place, time, and situation MEMORY: Patient's memory is grossly intact JUDGMENT: Limited INSIGHT INTO PROBLEM: Limited Patient's Strengths and Protective Factors: - Willing to comply - Good physical health Patient's Weaknesses and Risk Factors: -History of alcohol abuse but is consistent with AA -Limited social support Attitude for Change: Fair AIMS: no abnormal movements noted. Score is zero.? Physical exam: Const: cooperative Nutritional Appearance: Average body habitus Orientation: alert, awake and oriented x3 HEENT: Head normal to inspection, hearing grossly normal bilaterally, external nose normal, face symmetric Eyes: appearance normal, both eyes and all related structures, sclerae normal Neck: normal visual inspection and full ROM Resp: normal respiratory effort, able to speak in complete sentences and symmetric chest movement Cardio: regular rate GI: normal to inspection and non-distended : deferred Skin: no rashes or lesions noted Neuro: CNI: Normal olfaction. Visual rasheed intact. CNIII,IV,: EOM intact, no nystagmus. Pupils equal, round, reactive to light and accommodation, CNV: Sensation intact to light touch, CNVII: Raises eyebrows, smile/frown, puff out cheeks symmetrically, CNVIII: Hearing intact bilaterally, CNIX,X: Voice normal, soft palate elevation normal, symmetrical, CNXI: Shoulder shrug strong, equal bilaterally, CNXII: Tongue protrusion midline, movement symmetrical. Extrem: normal to inspection and full ROM [facility] Medical History Headache Dysphagia Crohn's disease Hx of blood transfusion reaction Ovarian cyst Stomach pain Problem List clean-up per request of Phys. EHR Cmte Ovarian cyst removal of cyst in 09/20/2019 Problem List clean-up per request of Phys. EHR Cmte Depression was on medication, stopped taking medication years ago Problem List clean-up per request of Phys. EHR Cmte Anxiety Problem List clean-up per request of Phys. EHR Cmte Hemorrhagic cyst of right ovary Problem List clean-up per request of Phys. EHR Cmte Kidney stones with last Problem List clean-up per request of Phys. EHR Cmte No pertinent past medical history Problem List clean-up per request of Phys. 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) Meds Medications and Allergies Allergies chlorpheniramine (From Triaminic Cold and Cough) Allergy (Verified 11/06/24 21:38) Swelling of Lip/Tongue/Throat dextromethorphan (From Triaminic Cold and Cough) Allergy (Verified 11/06/24 21:38) Swelling of Lip/Tongue/Throat pseudoephedrine (From Triaminic Cold and Cough) Allergy (Verified 11/06/24 21:38) Swelling of Lip/Tongue/Throat triaminic Allergy (Unknown, Uncoded 01/08/24 12:35) Anaphylaxis Home Medications venlafaxine 75 mg capsule,extended release 24 hr 75 mg PO QAM 07/22/24 [History Confirmed 11/07/24] hydroxyzine HCl 50 mg tablet 50 mg PO TID 11/07/24 [History Confirmed 11/07/24] Exam Physical Exam Vital Signs: Temp Pulse Resp BP Pulse Ox O2 Del Method 97.9 F 64 18 105/68 98 Room Air 11/07/24 07:30 11/07/24 07:30 11/07/24 07:30 11/07/24 07:30 11/07/24 07:30 11/07/24 07:30 Results - Psychiatry Labs 11/06/24 21:58 11/06/24 21:58 Psychiatry Labs: 11/06/24 11/06/24 21:45 21:58 RBC 4.27 Hgb 12.6 Hct 36.8 MCV 86.1 MCH 29.4 MCHC 34.2 RDW 14.8 Plt Count 264 MPV 7.8 Sodium 139 Potassium 3.7 Chloride 106 Carbon Dioxide 27.1 Anion Gap 9.6 BUN 6 L Creatinine 0.67 Calcium 9.1 Total Bilirubin 0.3 AST 13 ALT 11 Alkaline Phosphatase 52 Total Protein 7.2 Albumin 4.5 Urine Color Light-yellow Urine Appearance Clear Urine pH 5.5 Ur Specific [place] 1.015 Urine Protein Negative Urine Glucose (UA) Normal Urine Ketones Negative Urine Occult Blood Trace H Urine Nitrite Negative Ur Leukocyte Esterase 2+ H Urine RBC None seen Urine WBC 1-2 Assessment/Plan (1) Major depressive disorder: (2) Suicidal ideation: Plan Assessment and plan: Ms. Claros is a 29 year old female with a reported history of?Crohn's disease, blood transfusion reaction, ovarian cyst, depression, anxiety who presents for inpatient treatment due to depression and suicidal ideation with new onset auditory hallucinations. 1. Increase home Effexor to 112.5 mg p.o. every morning (not PRN) (Risks, benefits, and indications are discussed) 2. Monitor mental status 3. Encourage psychotherapy 4. Case management will work on a safe discharge plan.? Documented By: Kit Gutierrez MD 5 [id number] Signed By: <Electronically signed by Kit Gutierrez MD> 11/07/24 1312 [facility] Work Phone: 1(326) 731-615205-22-2025 History and physical [place] [id number] Psychiatry H&P Signed Patient: Barbra Claros MR#: [id number] : 1995 Acct:[id number] Age/Sex: 29 / F Adm Date: Loc: 1S Room: [address] [place] [address] Type: ADM IN Attending Dr: Kit Gutierrez MD Copies to: Kit Gutiererz MD NO FAMILY PHYSICIAN~ Date of Service: 11/07/2024 HPI History of Present Illness History of present illness: Ms. Claros is a 29 year old female with a reported history of?Crohn's disease, blood transfusion reaction, ovarian cyst, depression, anxiety who presents for inpatient treatment due to depression andsuicidal ideation with new onset auditory hallucinations. Reportedly, the patient presented to the ER stating that she has not right and has been having mental health issues recently with thoughts ofsuicide. Told the ED physician that she was contemplating taking a bunch of pills to kill herself. Also told ED provider that she has been hearing whispers which is new for her. UDS positive for marijuana only. She told night nurse that she has been feeling suicidal for a couple of months but it has been worse recently. 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 Patient states she was brought to the ER by a friend but sat in the car crying for over an hour before coming in to be seen. Patient reports triggers for her SI include a recent separation from her significant other, difficulty with her chantal gonzales's father, and toxic relationships with her parents. Patient reports that she feels defeated, hopeless, does not feel strong and asked would my kids be better off without me? Patient stated that she feels like she is a burden and that she needs to be somewhere safe because she wants to take a bunch of her pills. 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 She was agreeable to treatment and hopes to find a way to manage the way she has been feeling. Throughout admission interview, patient's affect was flat and voice was quiet/monotone. She was cooperative with admission assessment. Patient continueddepression, significant anxiety, and ongoing SI. She states she will remain safeon the unit. She denies AVH and is not delusional. Patient was personally seen by me on the day of the encounter. I reviewed the history and performedthe hunter elements of the assessment. I formulated the planof care and confirmed this with the medical student as noted below At the time of the interview, he presented as depressed and tearful, particularly when discussing her children.? This morning admits to depression and anxiety with feelings of hopelessness. She does not like being here as she does not know anyone and misses her children very much. Has had a historyof depression and anxiety before but recently has been hearing voices particularly on her left sideand ever whispering to her. This is a new symptom and is very scary to her. Recently has been having difficulty sleeping and decreased appetite with a lot of nausea and chest pain. Has been having increasingly frequent panic attacks with shortness of breath nausea and heart palpitations. Specifically last Monday, she was sent to [facility] due to panic attacks at which time they suggested that she voluntarily admit herself to [facility] but said she was talked out of it by her mother. Has been wanting to increase her venlafaxine dose recently. Tells me that she does not have a PCP or mental provider in the community but her medications are managed by her detective and intelligence analyst Dr. Gurrola. This morning she denies SI, HI, delusions. 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, vapes every day with nicotine Living: Lives in a trailer in [place] with her 4 children Employment: Unemployed Review of symptoms: Constitutional: Denies chills and denies fever(s) Eyes: Denies change in vision ENT: Denies abnormal hearing Cardiovascular: Denies chest pain Respiratory: Denies chest congestion and Denies cough Gastrointestinal: Denies change in bowel habits Genitourinary: Denies dysuria Musculoskeletal: Headache Integumentary/Breasts: Denies dry skin Neurologic: Denies abnormal gait and Denies abnormal movements Psychiatric: Reports depression and suicidal ideation Mental status exam ATTITUDE: Cooperative with interview SPEECH: Regular rate, steady rhythm, normal volume, and soft tone MOOD: Depressed AFFECT: Dysthymic, tearful THOUGHT PROCESS: Linear, logical, goal oriented THOUGHT CONTENT: Patient denies and does not express thoughts of or indicate behaviors contingent with suicidal ideation, homicidal ideation, auditory or visual hallucinations, or delusion content. Patient is not responding to internal stimuli. ORIENTATION: Patient is oriented to person, place, time, and situation MEMORY: Patient's memory is grossly intact JUDGMENT: Limited INSIGHT INTO PROBLEM: Limited Patient's Strengths and Protective Factors: - Willing to comply - Good physical health Patient's Weaknesses and Risk Factors: -History of alcohol abuse but is consistent with AA -Limited social support Attitude for Change: Fair AIMS: no abnormal movements noted. Score is zero.? Physical exam: Const: cooperative Nutritional Appearance: Average body habitus Orientation: alert, awake and oriented x3 HEENT: Head normal to inspection, hearing grossly normal bilaterally, external nose normal, face symmetric Eyes: appearance normal, both eyes and all related structures, sclerae normal Neck: normal visual inspection and full ROM Resp: normal respiratory effort, able to speak in complete sentences and symmetric chest movement Cardio: regular rate GI: normal to inspection and non-distended : deferred Skin: no rashes or lesions noted Neuro: CNI: Normal olfaction. Visual rasheed intact. CNIII,IV,: EOM intact, no nystagmus. Pupils equal, round, reactive to light and accommodation, CNV: Sensation intact to light touch, CNVII: Raises eyebrows, smile/frown, puff out cheeks symmetrically, CNVIII: Hearing intact bilaterally, CNIX,X: Voice normal, soft palate elevation normal, symmetrical, CNXI: Shoulder shrug strong, equal bilaterally, CNXII: Tongue protrusion midline, movement symmetrical. Extrem: normal to inspection and full ROM [facility] Medical History Headache Dysphagia Crohn's disease Hx of blood transfusion reaction Ovarian cyst Stomach pain Problem List clean-up per request of Phys. EHR Cmte Ovarian cyst removal of cyst in 09/20/2019 Problem List clean-up per request of Phys. EHR Cmte Depression was on medication, stopped taking medication years ago Problem List clean-up per request of Phys. EHR Cmte Anxiety Problem List clean-up per request of Phys. EHR Cmte Hemorrhagic cyst of right ovary Problem List clean-up per request of Phys. EHR Cmte Kidney stones with last Problem List clean-up per request of Phys. EHR Cmte No pertinent past medical history Problem List clean-up per request of Phys. EHR Cmte Surgical History History of partial hysterectomy Family History Brother Heart murmur Legacy FamHx Relation: Brother(s) Other Hypertension No significant family history Social History Smoking Status: Current every day smoker Tobacco Type: e-cigarettes Substance Use Type: Former User, Alcohol and Marijuana Substance Abuse Comment: Marijuana use - current; 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) Meds Medications and Allergies Allergies chlorpheniramine (From Triaminic Cold and Cough) Allergy (Verified 11/06/24 21:38) Swelling of Lip/Tongue/Throat dextromethorphan (From Triaminic Cold and Cough) Allergy (Verified 11/06/24 21:38) Swelling of Lip/Tongue/Throat pseudoephedrine (From Triaminic Cold and Cough) Allergy (Verified 11/06/24 21:38) Swelling of Lip/Tongue/Throat triaminic Allergy (Unknown, Uncoded 01/08/24 12:35) Anaphylaxis Home Medications venlafaxine 75 mg capsule,extended release 24 hr 75 mg PO QAM 07/22/24 [History Confirmed 11/07/24] hydroxyzine HCl 50 mg tablet 50 mg PO TID 11/07/24 [History Confirmed 11/07/24] Exam Physical Exam Vital Signs: Temp Pulse Resp BP Pulse Ox O2 Del Method 97.9 F 64 18 105/68 98 Room Air 11/07/24 07:30 11/07/24 07:30 11/07/24 07:30 11/07/24 07:30 11/07/24 07:30 11/07/24 07:30 Results - Psychiatry Labs 11/06/24 21:58 11/06/24 21:58 Psychiatry Labs: 11/06/24 11/06/24 21:45 21:58 RBC 4.27 Hgb 12.6 Hct 36.8 MCV 86.1 MCH 29.4 MCHC 34.2 RDW 14.8 Plt Count 264 MPV 7.8 Sodium 139 Potassium 3.7 Chloride 106 Carbon Dioxide 27.1 Anion Gap 9.6 BUN 6 L Creatinine 0.67 Calcium 9.1 Total Bilirubin 0.3 AST 13 ALT 11 Alkaline Phosphatase 52 Total Protein 7.2 Albumin 4.5 Urine Color Light-yellow Urine Appearance Clear Urine pH 5.5 Ur Specific [place] 1.015 Urine Protein Negative Urine Glucose (UA) Normal Urine Ketones Negative Urine Occult Blood Trace H Urine Nitrite Negative Ur Leukocyte Esterase 2+ H Urine RBC None seen Urine WBC 1-2 Assessment/Plan (1) Major depressive disorder: (2) Suicidal ideation: Plan Assessment and plan: Ms. Claros is a 29 year old female with a reported history of?Crohn's disease, blood transfusion reaction, ovarian cyst, depression, anxiety who presents for inpatient treatment due to depression andsuicidal ideation with new onset auditory hallucinations. 1. Increase home Effexor to 112.5 mg p.o. every morning (not PRN) (Risks, benefits, and indicationsare discussed) 2. Monitor mental status 3. Encourage psychotherapy 4. Case management will work on a safe discharge plan.? Documented By: Kit Gutierrez MD 5 [id number] Signed By: 11/07/24 1312 [facility]05-22-2025 Evaluation note* Diagnosis Onset Date Resolution Status Admit Date Major depressive disorder acute November 07, 2024 1:28am Suicidal ideation acute October 1:28am [facility] Work Phone: 1(325) 924-814405-22-2025 Evaluation note* Diagnosis Onset Date Resolution Status Admit Date Major depressive disorder acute November 07, 2024 1:28am Suicidal ideation acute October 1:28am Major depressive disorder acute November 14, 2024 11:39pm Suicidal ideation acute October 11:39pm [facility] Work Phone: 1(125) 264-568205-21-2025 History of Present illness Narrative* Michael Gurrola MD - 11/06/2024 4:00 PM EDT Images from the original note were not included. Michael Gurrola MD Obstetrics and Gynecology Patient: Barbra Claros, : 1995 (29 y.o.) DOS 11/06/24 Exam Date: 11/06/2024 HPI: Pt is here expressing being overwhelmed, in despair, hopeless. She is not sleeping, she is cutting.She reports no support. Visit Vitals BP 110/64 Wt 145 lb LMP 06/15/2023 BMI 23.76 kg/m OB Status Hysterectomy Smoking Status Some Days BSA 1.74 m OB History Para Term AB Living [...] Review Audit Reviewed by Fe Silveira MA (Enhanced Environmental Operator) on 11/06/24 at 1553 Medication Order Taking? Sig Documenting Provider Last Dose Status hydrOXYzine HCl (Atarax) 50 MG tablet [id number] Yes TAKE 1 TABLET BY MOUTH THREE TIMES DAILY NEEDED FOR ITCHING Michael Gurrola MD Active venlafaxine XR (Effexor XR) 75 MG 24 hr capsule [id number] Take 75 mg by mouth in the morning. Take with meals. Michael Gurrola MD Active Allergies Allergen Reactions Chlorpheniramine Anaphylaxis and Other Dextromethorphan Other Dm-Apap-Cpm Angioedema and Swelling Throat Swells Pseudoephedrine Other Past Medical History: Diagnosis Date ADHD (attention deficit hyperactivity disorder) ([facility]) Anxiety History of being hospitalized blood transfusion, bronchitis, pneumonia Ovarian cyst PTSD (post-traumatic stress disorder) ([facility]) Past Surgical History: Procedure Laterality Date COSMETIC SURGERY nose age 4 CT ANGIOGRAM HEART CORONARY 01/13/2024 CT ANGIOGRAM TAVR 01/13/2024 HYSTERECTOMY OTHER SURGICAL HISTORY PELVIC LAPAROSCOPY 11/2019 with ovarian cystectomy SALPINGECTOMY Bilateral VAGINAL DELIVERY x3 2014, 2020, 2021 Physical Exam: Objective OBGyn Exam Assessment/Plan ICD-10-CM 1. Severe episode of recurrent major depressive disorder, without psychotic features (HCC) (CMS/[facility]) F33.2 I have encouraged the pt to go to [facility] ER and request to speak with a mental health counselor. I suspect she needs to be admitted. She will need social economist to assist with childcare. She has assured me she will go No orders of the defined types were placed in this encounter. documented in this [facility]04-01-2025 History of Present illness Narrative* Michael Gurrola MD - 09/17/2024 11:45 AM EDT Pt had 4days of relief following last injection. By Monday morning the pain returned with [facility]and [facility] lidocaine again infiltrated into inferior extent of scar. Nevaeh well ICD-10-CM 1. Abdominal pain in female R10.9 2. Pelvic pain in female R10.[address] Reyes, pain specialist, to eval for potential nerve block documented in this encounterShriners Hospitals for [id number] History of Present illness Narrative* Michael Gurrola MD - 09/12/2024 1:00 PM EDT Images from the original note were not included. Michael Gurrola MD Obstetrics and Gynecology Patient: Barbra [...] Review Audit Reviewed by Fe Silveira MA (Enhanced Environmental Operator) on 09/12/24 at 1302 Medication Order Taking? Sig Documenting Provider Last Dose Status venlafaxine XR (Effexor XR) 75 MG 24 hr capsule [id number] Take 75 mg by mouth in the morning. Take with meals. Michael Gurrola MD Active Allergies Allergen Reactions Chlorpheniramine Anaphylaxis and Other Dextromethorphan Other Dm-Apap-Cpm Angioedema and Swelling Throat Swells Pseudoephedrine Other Past Medical History: Diagnosis Date ADHD (attention deficit hyperactivity disorder) ([facility]) Anxiety History of being hospitalized blood transfusion, bronchitis, pneumonia Ovarian cyst PTSD (post-traumatic stress disorder) ([facility]) Past Surgical History: Procedure Laterality Date [...] placed in this encounter. documented in this encounterShriners Hospitals for [id number] History of Present illness Narrative* Michael Gurrola MD - 09/11/2024 1:30 PM EDT Images from the original note were not included. Michael Gurrola MD Obstetrics and Gynecology Patient: Barbra Claros, : 1995 (28 y.o.) DOS 09/11/24 Exam Date: 09/11/2024 HPI: C/O ongoing abd pain Pt has a complicated history. She had a TLH in 12/10. That was complicted by development of a pelvicabscess. She was transferred to [place]. She underwent CT guided drainage. After 2 weeks sh recovered, but her RLQ pain continues. In 04/11, she was seen at [facility] and CT showed air in the peritoneum. She had exploratory laparotomy and revision of the vag cuff. I orline reviewed Dr Bowser op note. He closed the vag apex. The right ovary was shrouded by adhesion which were lysed, thereby freeingthe ovary. He descibes the ovary as normal. Since then, she cont to have daily RLQ pain that radiates down the leg and into the back She has been to [facility] ER twice in last week. Sono shows [...] Review Audit Reviewed by Fe Silveira MA (Enhanced Environmental Operator) on 07/10/24 at 1424 Medication Order Taking? Sig Documenting Provider Last Dose Status Discontinued 07/10/24 1424 Discontinued 07/10/24 1424 venlafaxine XR (Effexor XR) 75 MG 24 hr capsule [id number] Take 75 mg by mouth in the morning. Take with meals. Michael Gurrola MD Active Allergies Allergen Reactions Chlorpheniramine Anaphylaxis and Other Dextromethorphan Other Dm-Apap-Cpm Angioedema and Swelling Throat Swells Pseudoephedrine Other Past Medical History: Diagnosis Date ADHD (attention deficit hyperactivity disorder) ([facility]) Anxiety History of being hospitalized blood transfusion, bronchitis, pneumonia Ovarian cyst PTSD (post-traumatic stress disorder) ([facility]) Past Surgical History: Procedure Laterality Date [...] placed in this encounter. documented in this encounterShriners Hospitals for [id number] Telephone encounter Note* Telephone Encounter - Irena Damon - 07/30/2024 1:22 PM EST Pt called and needs to reschedule her US and OV with [facility], she currently has RSV and the Flu in her house, she now has her records, best call back number is [phone] [facility] [id number] Miscellaneous Notes* Telephone Encounter - Ierna Damon - 07/30/2024 1:22 PM EST Pt called and needs to reschedule her US and OV with BJP, she currently has RSV and the Flu in her house, she now has her records, best call back number is [phone] documented in this encounterShriners Hospitals for [id number] History of Present illness Narrative* Michael Gurrola MD - 07/10/2024 2:30 PM EST Images from the original note were not included. Michael Gurrola MD Obstetrics and Gynecology Patient: Barbra Claros, : 1995 (28 y.o.) DOS 07/10/24 Exam Date: 07/10/2024 HPI: C/o ongoing RLQ pain. Pt has a complicated history. She had a TLH in 12/10. That was complicted by development of a pelvicabscess. She was transferred to [place]. She underwent CT guided drainage. After 2 weeks sh recovered, but her RLQ pain continues. In 04/11, she was seen at [facility] and CT showed air in the peritoneum. She had exploratory laparotomy and revision of the vag cuff. I montserrat reviewed Dr Bowser op note. He closed the vag apex. The right ovary was shrouded by adhesion which were lysed, thereby freeingthe ovary. He descibes the ovary as normal. Since then, she cont to have daily RLQ pain that radiates down the leg and into the back [address] at [facility] shows a 6cm complex/septated right ovary Visit [...] Review Audit Reviewed by Fe Silveira MA (Enhanced Environmental Operator) on 07/10/24 at 1424 Medication Order Taking? Sig Documenting Provider Last Dose Status Discontinued 07/10/24 1424 Discontinued 07/10/24 1424 venlafaxine XR (Effexor XR) 75 MG 24 hr capsule [id number] Take 75 mg by mouth in the morning. Take with meals. Michael Gurrola MD Active Allergies Allergen Reactions Chlorpheniramine Anaphylaxis and Other Dextromethorphan Other Dm-Apap-Cpm Angioedema and Swelling Throat Swells Pseudoephedrine Other Past Medical History: Diagnosis Date ADHD (attention deficit hyperactivity disorder) ([facility]/HCC) Anxiety History of being hospitalized blood transfusion, bronchitis, pneumonia Ovarian cyst PTSD (post-traumatic stress disorder) (CMS/[facility]) Past Surgical History: Procedure Laterality Date [...] placed in this encounter. documented in this encounterShriners Hospitals for [id number] Hospital Discharge instructions* Discharge Instructions* Corrine Guerra RN - 04/16/2024 11:06 AM EDT Report the following signs or any questions regarding your physical condition to your surgeon immediately: Dr. Soriano @ [phone] Excessive swelling of, or around the wound area. Redness. Temperature of 100 degrees (F) or above. Excessive pain. Continue to use incentive spirometer frequently during the day. May continue to wear abdominal binder. * Discharge Instr - Activity* Corrine Guerra RN - 04/16/2024 9:31 AM EDT As tolerated No lifting over 5 pounds until cleared by surgeon No driving until cleared by surgeon and no longer taking Percocet May shower with use of CHG soap over abdomen. Keep abdominal dressing clean, dry and intact No sexual relations tampons and douching for at least 6 if not 8 weeks. * Discharge Instr - Diet* Corrine Guerra RN - 04/16/2024 9:30 AM [...] at most local grocery stores, pharmacies, and chain [employer]-stores. If you have any questions about your diet or nutrition, call the hospital and ask for the dietitian. General diet as tolerated * Attachments The following attachments cannot be sent through Care Everywhere. * Appendectomy: Post-op ([place]) * Surgical Site Infections: Prevention: General Info ([place]) documented in [facility]Bon [facility] History of Present illness Narrative* Julia Causey RD, MICHAEL - 04/16/2024 7:51 AM EDT Comprehensive Nutrition Assessment Type and Reason for [...] loss Fluid Accumulation: No significant fluid accumulation Computer Analyst Strength: Not Performed Nutrition Assessment: Continued increased nutrient needs aeb healing needs post op. Pt just advanced to regular diet. Hadnausea yesterday after eating food. + BM 04/15. [...] Measures: Height: 160 cm (5' 3 ) [place] Body Weight (IBW): 115 lbs (52 kg) [...] Used for Energy Requirements: Current Energy (kcal/day): 1563-1452 (20-23.) Weight Used for Protein Requirements: [place] Protein (g/day): 68-78 (1.3-1.5) Method Used for [...] -- CALCIUM 8.4* 8.6 Recent Labs 04/14/24 0604/15/24 0550 AST 12 10 ALT 11 10 [...] Continue Oral Nutrition Supplement JULIA CAUSEY RD, LD Contact: [phone] * Ivy Schmid RN - 04/15/2024 10:15 PM EDT Pt requesting to have diet advanced due to tolerated full liquid diet all day, order received from Aubrie LIM. Pt also showered with minimal assist, then moved to room [facility] due to leak in patient room.Dressing changed at this time due to being a little wet. Gauze and ABD with paper tape. No drainagenoted. Pt states she feels like she is going to have another bowel movement, getting up to bathroomat this time, and denies any other needs at this time. * Ivy Schmid RN - 04/15/2024 6:55 PM EDT Pt in bed with visitor at bedside. VS and assessment as charted. Pt remains A&Ox4. PRN Percocetadministered per pain. Dressing remains clean, dry and intact. Pt denies any other needs at this time and would like to shower later after visitors leave. Call light and bedside table are within reach, care ongoing. * Aubrie Gilman - 04/15/2024 9:52 AM EDT Patient ambulating in hallway. Stated she had a BM in her bathroom. Will notify primary RN * MartinsvilleKoko Brandee A, 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 - 04/15/2024 8:32 AM EDT Progress Note SUBJECTIVE: Patient seen for f/u [...] ml Output 1000 ml Net 1440.65 ml Exam: GEN: Awake, alert and oriented x3. [...] intact SKIN: No rashes. No skin lesions. Diagnostic Data: Complete Blood Count: Recent Labs [...] substance(s) Nutrition status: at risk for malnutrition Programmer Operator Numerical Control consult initiated Hospital Prophylaxis: DVT: SCD's Stress Ulcer: Not indicated at this time Disposition: Shared decision making: All test results, treatment options and disposition options were discussed with the patient today Social determinants of health that may impact management: none Code status: Full Code Disposition: Discharge plan is pending [facility] Advanced Care Planning documentation: [x] I have confirmed that the patient's Advance Care Plan is present, Code Status is documented, orsurrogate decision maker is listed in the patient's [...] the patient's medical record. [DOES NOT SATISFY [facility] PERFORMANCE] Brandee Rivera APRN - RAPHAEL , KYLEE, DEHYDROGENATION SUPERVISOR-C Hospitalist Medicine 04/15/2024, 8:33 AM Associated attestation - Nicolette Wyman MD - 04/15/2024 7:18 PM EDT Images from the original note were not included. [address] , [place], [place], [address] Attestation Patient: Barbra Claros Date of Admission: 04/10/2024 6:08 PM Hospital Day # 5 Date of Evaluation: 04/15/2024 I personally evaluated and examined the patient [id number] in conjunction with the PA/DEHYDROGENATION SUPERVISOR and agree with the management and dispostition of the patient. Please see the PA/DEHYDROGENATION SUPERVISOR's note for full details.My hunter findings are: SUBJECTIVE: Patient seen for [...] ml Output 1000 ml Net 1767.19 ml Exam: GEN: Awake, alert and oriented x3. [...] 204 Recent Labs 04/13/24 0545 04/14/24 0600 04/15/24 0550 NEUTROABS 3.49 2.22 1.62 LYMPHOPCT 25 [...] with the plan as outlined in the DEHYDROGENATION SUPERVISOR/PA's note Disposition: Discharge plan is pending Please note that this chart was generated using voice recognition StyleSeek dictation software. Although every effort was made to ensure the accuracy of this automated clarity specialists, some errors in clarity specialists may have occurred. Nicolette Wyman MD 04/15/2024 7:18 PM * Aubrie Gilman - 04/15/2024 8:24 AM EDT Patient up and ambulating independently in the hallway * Madeleine Brewer RN - 04/14/2024 6:48 PM EDT Assessment and vitals obtained at this time [...] time. Call light within reach, care ongoing. * Madeleine Brewer RN - 04/14/2024 6:45 PM EDT Spoke to Dr. Wyman regarding patient's XR results. New order for phenergan, see MAR. Will see how patient does with this med and go from there. * Ayana Rodriguez RN - 04/14/2024 4:30 PM EDT Assurance Senior Manager to patients bedside at this time due to call light going off. Upon arrival at bedside, patient is sitting on the side of the bed holding her abdomen and is in tears and states she is in a lot of pain, rated 10/10. PRN dilaudid given per patients request. Assurance Senior Manager called Dr. Wyman and updated him on patients condition, order received for abdominal x-ray. Care ongoing. * Ayana Rodriguez RN - 04/14/2024 2:01 PM EDT Assurance Senior Manager to patients bedside at this time to complete afternoon assessment. When adjusto writer operator arrived at bedside, patient was in the bathroom standing over toilet and stated she felt like she might get sick.Assurance Senior Manager assisted patient back to the bed and gave her a bucket. Patient states she tried to eat a few bites of her lunch and that is when she became very nauseous. Assurance Senior Manager called Dr. Soriano who state s to put patient back on a clear [...] tender. Patient states she is passing gas. Assurance Senior Manager assessed incision which is dry and intact with no drainage. Dressing reinforced. Assessment otherwise as charted, see flowsheets. Patient is resting in the bed withcall light in reach, denies other needs at this time. Care ongoing. * Mary Ellen Soriano DO - 04/14/2024 11:32 AM EDT General surgery Discussed with nurse on the phone. Patient continues to complain of some abdominal pain but overallseems to be feeling improved. Tolerating liquid diet without significant nausea or emesis and wishes to have her diet expanded. Still no bowel movement however does continue to pass flatus. -Okay to advance to full liquid diet -Encourage out of bed and ambulation Mary Ellen Soriano DO General Surgery 04/14/24 11:33 AM * Ayana Rodriguez RN - 04/14/2024 11:32 AM EDT Patient is requesting to eat some real food. Patient states she is not getting nauseous with the clear liquids. Assurance Senior Manager called Dr. Soriano about patients request and states her diet can be advanced to full liquid. Order placed for full liquid diet. * Kat Dubose OTA - 04/14/2024 11:03 AM EDT Occupational Therapy Facility/Department: [facility] Daily Treatment Note NAME: [...] Current Treatment Recommendations: Functional mobility training;Endurance training;Safety education& training;Patient/Caregiver education & training;Self- Care / ADL;Home management training Restrictions Restrictions/Precautions Restrictions/Precautions: [...] Time Out 0835 Minutes 15 JOY Desir * Sandra Morrison CERTIFIED NUCLEAR MEDICINE TECHNOLOGIST - 04/14/2024 10:51 AM EDT Physical Therapy Facility/Department: [facility] Daily Treatment Note NAME: Barbra Claros : 1995 Date of Service: 04/14/2024 Discharge Recommendations: Continue to assess pending progress, Home with assist PRN Patient Diagnosis(es): The primary encounter diagnosis was Pneumoperitoneum. Diagnoses of Perforated diverticulum and Peritoneal cavity free air were also pertinent to this visit. Assessment Assessment: Pt. ambulated [id number] without AD and management of IV pole and SBA for safety. Continues with slow cadance and decreased BLE step length. No LOB noted. Abdominal brace donned during treatment. Bed mobility and Transfers:SUP/SBA with additional time needed. Education given on walking thro ughout the day with good understanding from pt. [...] program;Safety education & training;Patient/Caregiver education & training;Manual;Endurance training;Ther apeutic activities Restrictions Restrictions/Precautions Restrictions/Precautions: Fall Risk, General Precautions, NPO Required Braces or Orthoses?: No Subjective Subjective Subjective: Pt. in bed upon arrival, agreeable to ambulation at this time. Pt. reporting she walkedaround the room yesterday and sat in the [...] for bed mobility with no vc's required forimproved mobility. Short Term Goal 3: Patient to [...] Out 0835 Minutes 15 Sandra Morrison PTA * Nicolette Wyman MD - 04/14/2024 7:57 AM EDT Images from the original note were not included. [address] [place], [place], [address] Progress Note Date: 04/14/2024 Patient name: Barbra [...] had been checked with the nursing staff aswell. JOANN Resendiz. REVIEW OF SYSTEMS: CONSTITUTIONAL: no [...] Acid reflux, Anxiety, Depression, Heartburn, and Seizures ([facility]). PAST SURGICAL HISTORY: has a past [...] She reports current drug use. Drug: Marijuana ([place]). TOBACCO: reports that she has been smoking [...] needed for Pain Yes Provider, MD Ju escitalopram (LEXAPRO) 10 MG tablet Take 1 [...] clubbing or edema DIAGNOSTICS: Laboratory Testing: See [facility] EMR for lab data Recent Results (from [...] mg 0.25 mg IntraVENous Q3H PRN Brandee Mcpherson APRN - RAPHAEL Or HYDROmorphone (DILAUDID) injection 0.5 mg 0.5 mg IntraVENous Q3H PRN Brandee Mcpherson APRN- MACHINE MOLDER 0.5 mg at 04/13/24 0518 dextrose 5 % and 0.45 % NaCl with KCl 20 mEq infusion IntraVENous Continuous Lexii Rivera APRN - MACHINE MOLDER 100 mL/hr at 04/14/24 0107 New Bag at 04/14/24 0107 sodium chloride flush 0.9 % injection 10 mL 10 mL IntraVENous 2 times per day Aubrie Gray 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 10 mL at 04/11/24 2031 sodium chloride flush 0.9 % injection 10 mL 10 mL IntraVENous PRN Aubrie Gray, 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 0.9 % sodium chloride infusion IntraVENous PRN Aubrie Gray 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 ondansetron (ZOFRAN-ODT) disintegrating tablet 4 mg 4 mg Oral Q8H PRN Aubrie Gray 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 Or ondansetron (ZOFRAN) injection 4 mg 4 mg IntraVENous Q6H PRN Aubrie Gray, 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 4 mg at 04/14/24 0113 polyethylene glycol (GLYCOLAX) packet 17 g 17 g Oral Daily PRN Aubrie Gray, 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 enoxaparin (LOVENOX) injection 40 mg 40 mg SubCUTAneous Daily Cristiano Singh MD 40 mg at 04/13/24 0956 ketorolac (TORADOL) injection 30 mg 30 mg IntraVENous Q6H PRN Brandee Rivera APRN - MACHINE MOLDER 30 mg at 04/13/24 0653 promethazine (PHENERGAN) 12.5mg in sodium chloride 0.9% 50 mL IVPB SOLN 12.5 mg 12.5 mg [id number] PRN ViktorNetteBrandee Amin, 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 Stopped at 04/11/24 1354 lactated ringers bolus [...] this chart was generated using voice recognition StyleSeek dictation software. Although every effort was made to ensure the accuracy of this automated clarity specialists, some errors in clarity specialists may have occurred. Nicolette Wyman MD 04/14/2024 7:58 AM * Ayana Rodriguez RN - 04/14/2024 6:28 AM EDT Shift assessment and vitals obtained at this [...] other needs at this time. Care ongoing. * Ayana Rodriguez RN - 04/14/2024 6:10 AM EDT Patient is feeling very anxious at this time due to a family situation and feels like she is havinga panic attack. Assurance Senior Manager made Dr. Wyman aware and medication orders were placed. See MAR. * Ivy Schmid RN - 04/14/2024 1:18 AM EDT Pt in bed awake. VS and assessment as charted. Pt remains A&Ox4. PRN Zofran administered per pain. Dressing remains clean, dry and intact with no drainage noted. Pt denies any other needs at thistime. Call light within reach, care ongoing. * Ayana Rodriguez RN - 04/13/2024 6:29 PM EDT Shift assessment and vitals obtained at this time as charted. Vitals WNL. Patient is complaining of8 out of 10 pain in her abdomen, PRN percocet given per patients request. Patient is alert and oriented x4. Lung sounds clear throughout. Bowel sounds are active throughout. Patient does have a reduction in appetite and tenderness to her abdomen. Dressing remains in place to abdomen and is clean, dry and intact, as well as abdominal binder. Assessment otherwise as charted, see flowsheets. Patientis resting in the bed with call light in reach, denies other needs at this time. Care ongoing. * Mary Ellen Soriano DO - 04/13/2024 1:38 PM EDT General Surgery: Daily Progress Note PATIENT NAME: [...] findings could be related to perforated acute diver ticulitis with associated reactive change or enteritis. 2. [...] deep breathing, incentive spirometry Daily dressing change * Ayana Rodriguez RN - 04/13/2024 1:[address] Soriano at patients bedside at this time and changed dressing to abdominal incision. * Kat Dubose OTA - 04/13/2024 11:20 AM EDT Occupational Therapy Facility/Department: [facility] Daily Treatment Note NAME: [...] Current Treatment Recommendations: Functional mobility training;Endurance training;Safety education& training;Patient/Caregiver education & training;Self- Care / ADL;Home management training Restrictions Restrictions/Precautions Restrictions/Precautions: [...] Time Out 1014 Minutes 16 JOY Desir * Sandra Morrison, CERTIFIED NUCLEAR MEDICINE TECHNOLOGIST - 04/13/2024 11:01 AM EDT Physical Therapy Facility/Department: [facility] Daily Treatment Note NAME: Barbra Claros : 1995 Date of Service: 04/13/2024 Discharge Recommendations: Continue to assess pending progress, Home with assist PRN Patient Diagnosis(es): The primary encounter diagnosis was Pneumoperitoneum. Diagnoses of Perforated diverticulum and Peritoneal cavity free air were also pertinent to this visit. Assessment Assessment: Pt. ambulated [id number] without AD and management of IV pole [...] program;Safety education & training;Patient/Caregiver education & training;Manual;Endurance training;Ther apeutic activities Restrictions Restrictions/Precautions Restrictions/Precautions: Fall Risk, General [...] for bed mobility with no vc's required forimproved mobility. Short Term Goal 3: Patient to [...] Time Individual Concurrent Group Co-treatment Time In 0958 Time Out 1014 Minutes 16 Sandra Morrison PTA * Ivy Schmid RN - 04/13/2024 6:55 AM EDT Assurance Senior Manager made aware by Dr. Wyman that patient requesting prn Zofran and prn Toradol. VS and assessment as charted. Pt remains A&Ox4. Dressing remains clean,dry and intact. Medications given as requested. Pt assisted to bathroom, independent after setup and provide warm wipes per request. Denies any other needs at this time. * Nicolette Wyman MD - 04/13/2024 5:38 AM EDT Images from the original note were not included. [address] [place], [place], [address] Progress Note Date: 04/13/2024 Patient name: Barbra Claros Date of admission: 04/10/2024 6:08 PM Date of : 1995 SUBJECTIVE/Last 24 hours update: Patient seen and examined at the bed side , no new acute events overnight and no new complains noted. VSS, afebrile. She continues to have some abdominal pain. She is passing gas/burping. She did getup this morning. Notes from nursing staff and [...] She reports current drug use. Drug: Marijuana ([place]). TOBACCO: reports that she has been smoking [...] not taking: Reported on 02/06/2024 10/31/23 Mickie Barrientos, ALLERGIES: Chlorpheniramine, Dm-apap-cpm, Dextromethorphan, Other, and Pseudoephedrine [...] clubbing or edema DIAGNOSTICS: Laboratory Testing: See [facility] EMR for lab data Recent Results (from [...] mg 0.25 mg IntraVENous Q3H PRN Brandee Mcpherson APRN - RAPHAEL Or HYDROmorphone (DILAUDID) injection 0.5 mg 0.5 mg IntraVENous Q3H PRN Brandee Mcpherson APRN- MACHINE MOLDER 0.5 mg at 04/13/24 0518 dextrose 5 % and 0.45 % NaCl with KCl 20 mEq infusion IntraVENous Continuous Lexii Rivera APRN - MACHINE MOLDER 100 mL/hr at 04/13/24 0517 New Bag at 04/13/24 0517 sodium chloride flush 0.9 % injection 10 mL 10 mL IntraVENous 2 times per day Aubrie Gray APRN - MACHINE MOLDER 10 mL at 04/11/24 203 sodium chloride flush 0.9 % injection 10 mL 10 mL IntraVENous PRN Aubrie Gray 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 0.9 % sodium chloride infusion IntraVENous PRN Aubrie Gray 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 potassium chloride (KLOR-CON M) extended release tablet 40 mEq 40 mEq Oral PRN Isaac, Aubrie L, RESPIRATORY THERAPY TECHNICIAN- MACHINE MOLDER Or potassium bicarb-citric acid (EFFER-K) effervescent tablet 40 mEq 40 mEq Oral PRN Isaac, Aubrie L, 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 Or potassium chloride 10 mEq/100 mL IVPB (Peripheral Line) 10 mEq IntraVENous PRN Isaac, Aubrie L, RESPIRATORY THERAPY TECHNICIAN- MACHINE MOLDER ondansetron (ZOFRAN-ODT) disintegrating tablet 4 mg 4 mg Oral Q8H PRN Isaac, Aubrie L, 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 Or ondansetron (ZOFRAN) injection 4 mg 4 mg IntraVENous Q6H PRN Isaac, Aubrie L, 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 4 mg at 04/12/24 2235 polyethylene glycol (GLYCOLAX) packet 17 g 17 g Oral Daily PRN Isaac, Aubrie L, 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 enoxaparin (LOVENOX) injection 40 mg 40 mg SubCUTAneous Daily Cristiano Singh MD 40 mg at 04/12/24 0915 ketorolac (TORADOL) injection 30 mg 30 mg IntraVENous Q6H PRN Brandee Rivera, 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 30 mg at 04/13/24 0018 promethazine (PHENERGAN) 12.5mg in sodium chloride 0.9% 50 mL IVPB SOLN 12.5 mg 12.5 mg [id number] PRN Brandee Rivera, 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 Stopped at 04/11/24 1354 lactated ringers bolus [...] this chart was generated using voice recognition [employer] dictation software. Although every effort was made to ensure the accuracy of this automated clarity specialists, some errors in clarity specialists may have occurred. Nicloette Wyman MD 04/13/2024 6:41 AM * Ivy Schmid RN - 04/12/2024 7:15 PM EDT Pt in bed finishing up conversation on phone. VS and assessment as charted. Pt is A&Ox4. PRN Dilaudid administered per pain. Dressing remains clean, dry, and intact. No drainage noted. Pt denies any other needs at this time and has call light within reach, care ongoing. * Maya Correia RN - 04/12/2024 3:27 PM EDT Brandee Amin and Dr Frances informed of pharmacy call received per RN concerning Dilaudid,Morphine and Fentanyl all ordered for patient. Patient states she prefers Dilaudid relieves her pain best, Brandee and Dr Frances informed. * Sandra Morrison PTA - 04/12/2024 1:55 PM EDT Physical Therapy Facility/Department: [facility] Daily Treatment Note NAME: Barbra Claros : 1995 Date of Service: 04/12/2024 Discharge Recommendations: Continue to assess pending progress, Home with assist PRN Patient Diagnosis(es): The primary encounter diagnosis was Pneumoperitoneum. Diagnoses of Perforated diverticulum and Peritoneal cavity free air were also pertinent to this visit. Assessment Assessment: Pt. ambulated [id number] with no AD and management of IV [...] program;Safety education & training;Patient/Caregiver education & training;Manual;Endurance training;Ther apeutic activities Restrictions Restrictions/Precautions Restrictions/Precautions: Fall Risk, General [...] in place;Call light within reach;Bed alarm in place;Leftin bed;Nurse notified Goals Short Term Goals Time Frame for Short Term Goals: 20 days Short Term Goal 1: Patient to complete all transfers with SUP and no LOB to decrease fall risk. Short Term Goal 2: Patient to perform log roll technique for bed mobility with no vc's required forimproved mobility. Short Term Goal 3: Patient to [...] Out 1345 Minutes 19 Sandra Morrison PTA * Richelle Peters OT - 04/12/2024 12:42 PM EDT Occupational Therapy Facility/Department: [facility] Daily Treatment Note NAME: [...] Current Treatment Recommendations: Functional mobility training;Endurance training;Safety education& training;Patient/Caregiver education & training;Self- Care / ADL;Home management training Subjective Subjective Subjective: [...] from IV pole. Standing rest break required prison through walk. MIn A for return to bed sitting>supine for support of LEs. Safety Devices Type of Devices: All fall risk precautions in place;Call light within reach;Bed alarm in place;Leftin bed;Nurse notified Patient Education Education Given To: [...] 1050 Time Out 1107 Minutes 17 GLENN Goodwin, OTR/L * Sandra Morrison CERTIFIED NUCLEAR MEDICINE TECHNOLOGIST - 04/12/2024 12:07 PM EDT Physical Therapy Facility/Department: [facility] Daily Treatment Note NAME: Barbra Claros : 1995 Date of Service: 04/12/2024 Discharge Recommendations: Continue to assess pending progress, Home with assist PRN Patient Diagnosis(es): The primary encounter diagnosis was Pneumoperitoneum. Diagnoses of Perforated diverticulum and Peritoneal cavity free air were also pertinent to this visit. Assessment Assessment: Pt. ambulated [id number] with no AD and management of IV [...] program;Safety education & training;Patient/Caregiver education & training;Manual;Endurance training;Ther apeutic activities Restrictions Restrictions/Precautions Restrictions/Precautions: Fall Risk, General [...] in place;Call light within reach;Bed alarm in place;Leftin bed;Nurse notified Goals Short Term Goals Time Frame for Short Term Goals: 20 days Short Term Goal 1: Patient to complete all transfers with SUP and no LOB to decrease fall risk. Short Term Goal 2: Patient to perform log roll technique for bed mobility with no vc's required forimproved mobility. Short Term Goal 3: Patient to [...] Out 1106 Minutes 26 Sandra Morrison PTA * Barndee Rivera APRN - RAPHAEL - 04/12/2024 6:54 AM EDT Progress Note SUBJECTIVE: Patient seen for f/u of Pneumoperitoneum. She resting in bed complaints of pain 8-02/26. Passed flatus. No BM. ROS: Constitutional: negative [...] ml Output 850 ml Net 1321 ml Exam: GEN: Awake, alert and oriented x3. EYES: EOMI, pupils equal NECK: Supple. No lymphadenopathy. No carotid bruit CVS: regular rate and rhythm, no audible murmur PULM: CTA, no wheezes, rales or rhonchi, no acute respiratory distress ABD: Bowels sounds hypoactive. Abdomen is soft. No distention. Generalized surgical site tendernessto palpation. EXT: no edema bilaterally . No calf tenderness. NEURO: Moves all extremities. Motor and sensory are grossly intact SKIN: No rashes. No skin lesions. Diagnostic Data: Complete Blood Count: Recent Labs 04/09/24 1145 04/10/24 18404/11/24 0530 WBC 6.0 9.1 9.4 RBC 4.16 [...] substance(s) Nutrition status: at risk for malnutrition Programmer Operator Numerical Control consult initiated Hospital Prophylaxis: DVT: SCD's Stress Ulcer: Not indicated at this time Disposition: Shared decision making: All test results, treatment options and disposition options were discussed with the patient today Social determinants of health that may impact management: none Code status: Full Code Disposition: Discharge plan is pending [facility] Advanced Care Planning documentation: [x] I have confirmed that the patient's Advance Care Plan is present, Code Status is documented, orsurrogate decision maker is listed in the patient's [...] the patient's medical record. [DOES NOT SATISFY [facility] PERFORMANCE] Brandee Rivera APRN - RAPHAEL , RESPIRATORY THERAPY TECHNICIAN, DEHYDROGENATION SUPERVISOR-C Hospitalist Medicine 04/12/2024, 6:54 AM Associated attestation - Nicolette Wyman MD - 04/12/2024 8:42 AM EDT Images from the original note were not included. [address], [address] Attestation Patient: Barbra Claros Date of Admission: 04/10/2024 6:08 PM Hospital Day # 2 Date of Evaluation: 04/12/2024 I personally evaluated and examined the patient [id number] in conjunction with the PA/DEHYDROGENATION SUPERVISOR and agree with the management and dispostition of the patient. Please see the PA/DEHYDROGENATION SUPERVISOR's note for full details.My hunter findings are: SUBJECTIVE: Patient seen for [...] ml Output 350 ml Net 1821 ml Exam: GEN: Awake, alert and oriented x3. [...] with the plan as outlined in the DEHYDROGENATION SUPERVISOR/PA's note Disposition: Discharge plan is pending Please note that this chart was generated using voice recognition Right90on dictation software. Although every effort was made to ensure the accuracy of this automated clarity specialists, some errors in clarity specialists may have occurred. Nicolette Wyman MD 04/12/2024 8:41 AM * Roxanne Smith RN - 04/12/2024 6:45 AM EDT Patient is refusing to ambulate at this time. Pain is 9/10 and was recently medicated by previous shift RN. Patient educated on importance of ambulating. States she is tired and has not slept all night. She will ambulate later. Will continue to offer frequent ambulation. * Cora Quiñones RN - 04/12/2024 4:20 AM EDT Patient states fentanyl and toradol together helped get her pain down to a 7 and it was tolerable. Assurance Senior Manager encouraged patient to get up and walk throughout the day today and to continue doing incentive spirometer in which patient states she has been doing. * Cora Quiñones RN - 04/12/2024 1:40 AM EDT Assurance Senior Manager spoke with WIN Alfred regarding patient's pain. * Cora Quiñones RN - 04/12/2024 1:10 AM EDT Patient is very tearful due to pain. Assurance Senior Manager at bedside. Gave pain medications. * Cora Quiñones RN - 04/11/2024 11:12 PM EDT Patient ambulated to and from the bathroom and tolerated well. * Cora Quiñones RN - 04/11/2024 7:08 PM EDT Patient resting comfortably at this time. Patient states pain and is aware of when she can have hernext dose of pain medication. Denies any other needs at this time. Patient alert & oriented x4 and able to answer all questions appropriately and follow commands. Encouraged patient to walk, and use incentive spirometer. Assessment and vitals as charted. Bed locked, gripper socks on, call lightwithin reach and able to use appropriately. Will continue to monitor this shift. * Divine Verma - 04/11/2024 4:35 PM EDT Spiritual Services Interventions [id number]/[id number] 04/11/2024 Divine Claros 28 y.o. year old female Encounter Summary Encounter Overview/Reason: (P) Initial Encounter Service Provided For: (P) Patient Referral/Consult From: (P) Rounding Last Encounter : (P) 04/11/24 Complexity of Encounter: (P) Moderate Begin Time: (P) 1500 End Time : (P) 1515 Total Time Calculated: (P) 15 min Spiritual/Emotional needs Type: (P) Spiritual Support Assessment/Intervention/Outcome Assessment: (P) Calm Intervention: (P) Discussed belief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 operative instruction sheet reviewed with the patient. CHG skin prep instructions reviewed with patient. * Mana Miller RN - 11/14/2023 8:52 AM EDT Attempted PAT phone call; no answer; message left to return PAT phone call. * Mana Miller RN - 11/10/2023 6:13 PM EDT Attempted PAT phone call; no answer; message left to return PAT phone call. documented in this encounterBON [facility]05-02-2024 Note [id number]05-01-2024 NotePatient Education Materials Follows: Wrist Sprain, Adult A wrist sprain [...] safe for you. General instructions ? Take zahg-cor-swxsdgt and prescription medicines only as told by [...] Your pain does n (more content not included)...[facility] [id number] History of Present illness Narrative* Davina Michele RN - 07/25/2023 10:56 AM EST Discharge Criteria Outpatients must meet criteria 1 [...] require patient to operate motor Vehicle. Yes * Davina Michele RN - 07/25/2023 10:56 AM EST Remains at baseline. Assisted up to BR. Voids and gait is steady. Feels she is ready to be discharged. * Davina Michele RN - 07/25/2023 10:43 AM EST Placed on and off bedpan but does not void. Has returned back to baseline/pre- procedure condition. Remains alert and in no distress at this time. * Davina Michele RN - 07/25/2023 10:17 AM EST Now opens eyes-states she is home . Drowsy but does open eyes to name. DAYAMI remains at bedside. Lungs remain clear with no further wheezing. No further dry heaves or coughing. * Davina Michele RN - 07/25/2023 10:09 AM EST Returns from endoscopy with RN and anesthesia at bedside. Audible wheezing noted. STAT xopenex treatment ordered. Pt coughs up small amount clear phlegm then dry heaves. Continues to cough throughouttreatment but improves by end of treatment. Lungs [...] to right. VS remain stable-see flow sheet. * Forest Ley RN - 07/24/2023 8:39 AM EST [facility] Preadmission Testing Name: Barbra Claros : 1995 [...] [x] Ride Home [] No Jewelry/Contact Lenses/Nail Luxembourgish [x] Prep/Lax/Clear Liquids [] Chlorhexidene DOS Patient Needs [x] HCG [] Blood Sugar [] PT/INR [] T&S Do you have any metal allergies? [] Yes [x] No If yes, to what metals: Patient instructed on the pre-operative, intra-operative, and post-operative process? Yes Medication instructions reviewed with patient? Yes documented in this encounterBON [facility]12-22-2023 NoteEducation Materials Neurology Migraine Headache A migraine headache [...] these instructions at home: Medicines ? Take dknn-exc-eicmqwe and prescription medicines only as told by your doctor. ? Ask your doctor if the medicine prescribed to you: ? Requires you to avoid driving or using heavy machinery. ? Can cause trouble pooping (constipation). You may need to take these steps to prevent or treat trouble pooping: ? Drink enough fluid to keep your pee (urine) pale yellow. ? Take cptz-vqd-hintdqi or prescription medicines. ? Eat foods that [...] side or both sides of your head. Theseheadaches can also cause other symptoms. ? This condition may be treated with medicines and changes to your lifestyle. ? Keep a journal to find out what may bring on your migraine headaches. ? Contact a doctor if you get a migraine headache that is differe (more content not included)...[facility] [id number] NotePatient Education Materials Follows:Disease Viral Illness, Adult Viruses are tiny [...] cells in your body, multiply, and cause theinfected cells to work abnormally or . When these cells , they release more of the virus. When this happens, you develop symptoms of the illness, and the virus continues to spread to other cells. If the virus takes over the function of the cell, it can cause the cell to divide and grow out ofcontrol. This happens when a virus causes cancer. [...] Medicines to relieve symptoms. These can include stbl-lhc-qonjlgy medicine for pain and fever, medicines for cough or congestion, and medicines to relieve diarrhea. ? Antiviral medicines. These medicines are available only for certain types of viruses. Some viral illnesses can be prevented with vaccinations. A common example is the flu shot. Follow these instructions at home: Medicines ? Take lzsl-hgx-hxifgwq and prescription medicines only as told by [...] at least 20 secon (more content not included)...[facility] [id number] NoteEducation Materials Obstetrics and Gynecology Menorrhagia Menorrhagia is [...] these instructions at home: Medicines ? Take ihri-wdw-qjekqct and prescription medicines only as told by your doctor. This includes iron pills. ? Do not change or switch medicines without asking your doctor. ? Do not take aspirin or medicines that contain aspirin 1 week before or during your period. Aspirin may make bleeding worse. Managing constipation Iron pills may cause trouble pooping (constipation). To prevent or treat problems when pooping, youmay need to: ? Drink enough fluid to keep your pee (urine) pale yellow. ? Take msrg-ekv-xnjhklb or prescription medicines. ? Eat foods that [...] given medicines or have surgery. ? Take uqjv-ppc-sabfavo and prescription medicines only as told by [...] care provider. Document Revised: (more content not included)...[facility] [id number] Progress note Author Sarah Egan [facility] February 27, 2023 10:42am Note Date/Time February 27, 2023 7:04am 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 Patient: Barbra Claros MR#: [id number] : 1995 Acct:[id number] Age/Sex: 27 / F Adm Date: 3 Loc: Room: [address] [place] [address] Type: ADM IN Attending Dr: Jonathan Monahan [...] comments: no complaints and pain well controlled baby status: doing well and nursing well [place] feeding status: exclusively breast feeding OB - [...] % (Auto) 73.1, Lymph % (Auto) 21.4, [place] % (Auto) 4.7, Eos % (Auto) 0.4, Baso % (Auto) 0.4, Nucleat RBC Rel Count 0.1, Neut# (Auto) 8.4 H, Lymph # (Auto) 2.5, [place] # (Auto) 0.5, Eos # (Auto) 0.0, Baso # (Auto) 0.0 02/26/23 13:30: Urine Opiates Screen Negative, Ur Barbiturates Screen Negative, Ur Phencyclidine Scrn Negative, Ur Amphetamines Screen Negative, U Benzodiazepines Scrn Negative, Urine Cocaine Screen Negative 02/26/23 13:30: Urine Color Yellow, Urine Appearance Cloudy A, Urine pH 6.5, Ur Specific [place] 1.016, Urine Protein Negative, Urine Glucose (UA) [...] signed by Sarah Egan DO> 02/27/23 1042 [facility] Work Phone: [phone] 107-262309-10-2023 Procedure [facility]07-31-2023 NotePatient Education Materials Follows: Shoulder Pain Many [...] strengthen the arm. General instructions ? Take fsvh-ijo-xzrnspy and prescription medicines only as told by [...] provider. Document Revised: 02/18/2022 Document Reviewed: 02/18/2022 Elsevier Patient Education ? 2022 [employer] Shoulder Range of Motion Exercises Shoulder [...] side. 3. Keeping yo (more content not included)...[facility] [id number] Evaluation note* Encounter Date Diagnosis Assessment Notes Treatment Notes Treatment Clinical Notes Jun, Abdominal pain (ICD-10 - R10.9) Jun, Crohn's disease (ICD-10 - K50.90) In[facility] Other 11-08-2022 Evaluation note* Encounter Date Diagnosis Assessment Notes Treatment Notes Treatment Clinical Notes Apr, Nausea & vomiting (ICD-10 - R11.2) Apr, Abdominal pain (ICD-10 - R10.9) Apr, Blood in stool (ICD-10 - K92.1) Apr, Dysphagia (ICD-10 - R13.10) Apr, Diarrhea (ICD-10 - R19.7) [facility] Other Discharge summary Author Kit fox [facility] Note Date/Time November 10, 2024 7:31a m [facility] [address] [place] [address] Discharge Summary Signed Patient: Barbra Claros MR#: [id number] : 1995 Acct:[id number] Age/Sex: 29 / F Adm Date: 5 Loc: Room: [address] [place] [address]: Kit Gutierrez MD Copies to: Kit Gutierrez MD NO FAMILY PHYSICIAN~ Providers Date of Discharge: 11/10/24 Discharging Provider: Kit Gutierrez Primary Care Provider: PHYSICIAN NO FAMILY Consults: 11/07/24 03:50 Consult to Case Management Routine Comment: CM Reason for Consult: Other Other and/or Abuse/Neglect Consult Reasons: Hx of abuse. 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 Discharge Diagnosis (1) Suicidal ideation: (2) Major depressive disorder: Final Diagnosis Final Discharge Diagnosis: MDD Summary Hospital Course Hospital course: History of present illness: Ms. Claros is a 29 year old female with a reported history of?Crohn's disease, blood transfusion reaction, ovarian cyst, depression, anxiety who presents for inpatient treatment due to depression and suicidal ideation with new onset auditory hallucinations. Reportedly, the patient presented to the ER stating that she has not right and has been having mental health issues recently with thoughts of suicide. Told the ED physician that she was contemplating taking a bunch of pills to kill herself. Also told ED provider that she has been hearing whispers which is new for her. UDS positive for marijuana only. She told night nurse that she has been feeling suicidal for a couple of months but it has been worse recently. 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 Patient states she was brought to the ER by a friend but sat in the car crying for over an hour before coming in to be seen. Patient reports triggers for her SI include a recent separation from her significant other, difficulty with her children's father, and toxic relationships with her parents. Patient reports that she feels defeated, hopeless, does not feel strong and asked would my kids be better off without me? Patient stated that she feels like she is a burden and that she needs to be somewhere safe because she wants to take a bunch of her pills. 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 She was agreeable to treatment and hopes to find a way to manage the way she has been feeling. Throughout admission interview, patient's affect was flat and voice was quiet/monotone. She was cooperative with admission assessment. Patient continueddepression, significant anxiety, and ongoing SI. She states she will remain safeon the unit. She denies AVH and is not delusional. Patient was personally seen by me on the day of the encounter. I reviewed the history and performed the hunter elements of the assessment. I formulated the planof care and confirmed this with the medical student as noted below At the time of the interview, he presented as depressed and tearful, particularly when discussing her children.? This morning admits to depression and anxiety with feelings of hopelessness. She does not like being here as she does not know anyone and misses her children very much. Has had a history of depression and anxiety before but recently has been hearing voices particularly on her left side and ever whispering to her. This is a new symptom and is very scary to her. Recently has been having difficulty sleeping and decreased appetite with a lot of nausea and chest pain. Has been having increasingly frequent panic attacks with shortness of breath nausea and heart palpitations. Specifically last Monday, she was sent to [facility] due to panic attacks at which time they suggested that she voluntarily admit herself to [address] but said she was talked out of it by her mother. Has been wanting to increase her venlafaxine dose recently. Tells me that she does not have a PCP or mental provider in the community but her medications are managed by her detective and intelligence analyst Dr. Gurrola. This morning she denies SI, HI, delusions. The course of treatment: The patient initially presented as depressed and said her OB recommended inpatient psychiatric admission Psychotropic medications targeting mood and anxiety were started, and she was provided supportive and reality-oriented therapy. Effexor was increased to 11.25mg PO Q daily She also benefited from PRN Trazodone and Vistaril. She felt that her symptoms have improved on the current medication regimen, and she has been compliant with treatment and reported no side effects. Her sleep and appetite were okay. She has been attending groups and described them as helpful in building coping skills. The patient has denied any access to firearms or lethal weapons. She felt better than before coming to the hospital and feels hopeful regarding her future. She understands the importance of outpatient follow-up to ensure the stability of her symptoms. She denied suicidal or homicidal ideation and verbalized the intent to notify the staff if she has such thoughts. No suicidal or self-injurious behaviors occurred during inpatient treatment. She denied any symptoms that may pose a threat to herself or others. She was out in the common area socializing and communicating with peers appropriately. On the day of discharge she reported that she is feeling better. She denied anysuicidal thoughts. She was looking forward to returning home and following withoutpatient services. She stated that her family was supportive and felt safe athome. She denied any depression, suicidality, hallucinations, or cady. The patient described her thoughts as positive and denied hopelessness. She is in good spirits and is at her baseline. She did not meet the criteria for involuntary psychiatric hospitalization. The patient benefited from attending inpatient treatment and was suitable for outpatient follow-up. I explained to the patient that her hospital discharge does not mean her medical care ends here. She needs consistent outpatient follow-up and cognitive behavioral therapyand should communicate from this point on with her outpatient team. Patient's illness, medication side effects, benefits and risks were reviewed with her prior to discharge. The patient voiced understanding of their diagnosis, the medications recommended along with the importance of medication compliance. The patient was counseled not to stop medications without the supervision of a psychiatrist. The patient was counseled that if there was an increase in mental health issues, depression, anxiety, medication side effects, self harm or thoughts of harm to others, the patient was not to harm them self or stop treatment, but to call [facility], 911 or come to the nearest emergency room. The patient also received information regarding advanced mental and medical health directives during this hospitalization to discuss with their outpatient provider. The plan was discussed with the patient, the nurses and thecase management department. The patient voiced agreement with the plan. Discharge disposition: Home with mom. Coordinated via case management. Safe discharge Planning: With the cessation of all suicidal ideation, improvements in mood, and absence of any psychotic symptoms at the time of discharge, aftercare plans were solidified. She was able to formulate a believable Safety Plan. Discharge plans were discussed with the patient, her family, and the treatment team. All agreed with the discharge plan. On the day of discharge, she was evaluated and had no complaints. She denied any SI/HI. She agreed to follow up with outpatient treatment as arranged by case management. She had no complications during her stay. Factors to be considered are the chronicity and severity of the symptoms and signs, associated comorbidity, and differential diagnosis-motivation to get in treatment, response to treatment, adherence to treatment recommendations, and using skills. The patient's verbal consent was provided. Suicide risk assessment: A thorough review of risk and protective factors was conducted. I discussed with the patient the following recommendations that wouldhelp reduce suicide, which include limiting the number of medications to a 15-day supply with one refill at the time of discharge to avoid potential overdose,consistent outpatient follow-up, preferably within seven days of release, involving supportive family/friends in her care, and her desire to live. We also discussed the availability of outpatient DBT groups, which can be lifesaving. She reports good therapeutic alliance, good response to medication management and therapy, availability of local mental health services and willingness to follow up, lack of suicidal ideation, intent or plan, lack of impulsivity, agitation, or psychotic behavior. The patient is future-oriented and understands the importance of outpatient follow-up. Psychiatric experts agree that predicting suicide is impossible, but considering positive factors like family and azul, lack of access to firearms, and desire to continue treatment makes her current suicide risk minimal. Given the chronicity of suicidality, we discussed measures to help her with long-term safety. The patient is not suicidal or psychotic now. To help decreaseher suicide risk, as best I can, I am referring her for outpatient treatment andCBT for long-term follow-up to have somewhere to go and someone to manage her assymptoms and stressors develop. This is the best way to keep her alive. So, we discussed a crisis plan for future suicidality: at the first sign of distress, she will call the hotline; if this is not sufficient, she will 911, then call family members or friends; ultimately, she will come to the ER. Violence Risk Assessment: Chronic: Gender: lower than males Modifiable: good response to treatment, good therapeutic alliance, availability of local mental health services and willingness to follow up, lack of homicidal ideation (intent or plan) on the day of discharge and during hospitalization, lack of substance abuse, future oriented. No history of recent violence reported. Furthermore, No access to lethal means as currently have no weapons. No aggressive behavior during hospitalization. She has been social with peers on the unit and has been attending groups. Current Violence Risk Assessment: Low acute risk given known chronic and modifiable risk factors. Patient did not meet criteria for probate and his behavior has been overall appropriate on the unit. She has denied homicidal thoughts and has not exhibitedany aggressive behavior. She is not an acute risk to himself or others evidenced by subjective and objective data during his hospitalization. She is compliant with meds which can improve impulse control and mood. Safety: The patient is not acutely psychotic and is safe to continue treatment on an outpatient basis. The patient was made aware of the 09/01 emergency services of the crisis center. She was advised to call 911 or go to the nearest ER in case of a crisis ( (including having thoughts of harming herself or others). Typical short- and long-term side effects of the proposed medication regimen, including contraindications and clinically significant interactions, were discussed with the patient. Side effects include but not limited to sedation, overdose, rash, movement disorders (TD, EPS), weight gain, and appetite changesand advised the patient not to drive or drink while taking these meds. Patient should reach out to medical provider if any of these side effects occur. Using drugs can increase risk of . We also discussed risk of overdose with this current med regimen. Patient understands that it is impossible to gurantee an outcome with medications. Patient indicates an understanding that benefits outweigh the risks. Continue supportive therapy with some CBT techniques. Psycho-education and compliance counseling were provided. She denies current and is aware to notify her psychiatrist if she becomes due to the risk of harm to the fetus. Avoid taking psychiatric medications with driving. MSE: Orientation: Alert and oriented to person, place, and time. Appearance/Behavior: Fair grooming and hygiene, calm, cooperative, engaged in the interview. Good eye contact. Normal psychomotor activity. Speech: normal rate, rhythm, volume, and tone. Non pressured. Knowledge: Appropriate for age and level of education Mood: okay Affect: reactive, mood-congruent Thought process: linear, logical, and goal-oriented Thought content: No SI/HI. No AVH. No delusions. Does not appear to be responding to internal stimuli. Concentration: Grossly intact based on track during the interview Associations: No loosening of associations Memory: Able to recall recent and remote historical information Insight: Fair, able to appreciate current symptoms and need for outpatient treatment Judgment: fair, agreed to follow treatment recommendations, socially appropriate with interviewer and staff. Time spent discussing smoking cessation with patient: more than 10 minutes Condition Condition at Discharge: Stable Status at Discharge Functional status at discharge: independent ambulation Time Spent with Patient Time spent providing/coordinating discharge services (# min): 99 Discharge Plan Discharge Plan Patient Disposition: Home Activity: No Activity Restriction Diet: Regular Instructions: Know your Meds Prescriptions: New buspirone 5 mg Tablet 5 mg PO BID 15 Days Qty: 30 2RF venlafaxine 37.5 mg Capsule,Extended Release 24hr 112.5 mg PO QAM 30 Days Qty: 90 1RF ondansetron 4 mg Tablet,Disintegrating 4 mg PO Q6HR PRN (Reason: Nausea) 30 Days Qty: 30 0RF trazodone 50 mg Tablet 50 mg PO QHS PRN (Reason: Insomnia) 15 Days Qty: 15 1RF hydroxyzine pamoate 50 mg Capsule 50 mg PO Q6H PRN (Reason: Anxiety) 15 Days Qty: 30 0RF Continued hydroxyzine HCl 50 mg tablet 50 mg PO TID Discontinued venlafaxine 75 mg capsule,extended release 24hr 75 mg PO QAM Patient Comments: with breakfast Follow Up: [facility] [Outside] (new referral) [facility] [place] [Outside] (for any urgent medical needs) Exam Physical Exam Vital Signs: Temp Pulse Resp BP Pulse Ox O2 Del Method 98.2 F 95 16 119/72 97 Room Air 11/09/24 19:59 11/09/24 19:59 11/09/24 19:59 11/09/24 19:59 11/09/24 19:59 11/09/24 21:00 Documented By: Kit Gutierrez MD 5 0730 Signed By: <Electronically signed by Kit Gutierrez MD> 11/10/24 0731 [facility] Work Phone: Discharge summary Author Dashawn Moreno [facility] Note Date/Time November 16, 2024 12:[address] [facility] [address] [place] [address] Discharge Summary Signed Patient: Barbra Claros MR#: [id number] : 1995 Acct:[id number] Age/Sex: 29 / F Adm Date: 5 Loc: Room: [address] [place] [address]: Dashawn Moreno MD Copies to: Dashawn Moreno MD NO FAMILY PHYSICIAN~ Providers Date of Discharge: 11/16/24 Discharging Provider: Dashawn Moreno Primary Care Provider: PHYSICIAN NO FAMILY Discharge Diagnosis (1) Major depressive disorder: (2) Suicidal ideation: Final Diagnosis Final Discharge Diagnosis: Major depressive disorder Summary Hospital Course Hospital course: Ms. Claros is a 29-year-old female with past reported history of headache, dysphagia, Crohn's disease, history of blood transfusion reaction, ovarian cyst,stomach pain, depression, anxiety, hemorrhagic cyst of right ovary, kidney stones who presents to us for treatment of major depressive disorder and suicidal ideation. Reportedly, patient presented to the ER last night due to concerns of anxiety and depression. She noted that [facility]. She noted that the medication seemed to have been working when she was discharged, but is not working now. Despite continuing her medications and using it, she has developed thoughts of wanting to kill herself. She was contemplating self harming and overdosing on pills. She denied any alcohol or drugs on the day of ER presentation. She denied hearing voices or having any homicidal ideation. She was tearful and admits to feeling panicked and anxious. She had no medical complaints at that time. Workup in the ER revealed positive urine for marijuana. Patient was medically cleared. At the time of the interview, she presented as severely depressed. Patient confirms the above story to me. She notes that she has had an amalgamation of life stressors over the past year including some trauma and family loss that shedoes not wish to discuss at this time. She confirms that she was taking her BuSpar and venlafaxine as prescribed. She was also on trazodone and hydroxyzineas needed. She notes that she started to develop worsening anxiety and depression and suicidal thoughts over the past 3 days since being discharged from the unit. Currently, she rates her depressed mood a 10 out of 10, rates her anxiety a 10 out of 10, and confirms auditory hallucinations of voices telling her to kill herself. She does not recognize some of these voices. She denies visual hallucinations. She denies SI and HI at this time. She reports poor appetite and poor sleep. She confirms feelings of hopelessness, feelings of guilt, depressed mood, and has psychomotor retardation. History of dependentpersonality tendencies is also noted on intake today. Nurse admission note was reviewed. No further pertinent findings were found. All questions and concernswere addressed with patient. Past psych history: Reports history of anxiety and depression Past hospitalizations: Confirms with last one 3 days ago. 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 Her dose of Effexor was increased. She tolerated the medications without any problems and did not report any side effects. She had rapid resolution of her symptoms. She later stated that she only came to the hospital because of her sobriety. She was concerned that she was going to relapse or end up in [facility]. She did not exhibit any behavior concerning for suicidality during her hospital course. Did not have any conflict with peers or staff. On the day of discharge, she stated thatshe was doing better. She denied any depression or suicidality. She stated that she would continue her medications and follow-up with outpatient services. She did report some medical issues with a family member. Time spent discussing smoking cessation with patient: 3 to 10 minutes Condition Condition at Discharge: Stable Status at Discharge Cognitive/behavioral status at discharge: Mental Status Exam: Appearance: grossly normal Mental Status: mental status grossly normal Mood: Euthymic mood Affect: Normal affect Speech and Movement: speech normal, movement normal Attitude: cooperative Thought Process: normal Thought Content: Denied hallucinations, no homicidality and no suicidality Insight: Good Judgment: Good Functional status at discharge: independent ambulation Overall status at discharge: patient is back to baseline Time Spent with Patient Time spent providing/coordinating discharge services (# min): 30 Discharge Plan Discharge Plan Patient Disposition: Home Activity: No Activity Restriction Diet: Regular Instructions: Know your Meds Prescriptions: New venlafaxine 150 mg Capsule,Extended Release 24hr 150 mg PO QAM 30 Days Qty: 30 0RF nicotine 21 mg/24 hr Patch 24 Hour 21 mg transdermal DAILY Qty: 30 0RF aripiprazole 10 mg Tablet 10 mg PO QHS 30 Days Qty: 30 0RF trazodone 100 mg tablet 100 mg PO QHS PRN (Reason: insomnia) Qty: 30 0RF buspirone 10 mg tablet 10 mg PO BID Qty: 60 0RF Continued hydroxyzine HCl 50 mg tablet 50 mg PO TID ondansetron 4 mg Tablet,Disintegrating 4 mg PO Q6HR PRN (Reason: Nausea) 30 Days Qty: 30 0RF Discontinued buspirone 5 mg Tablet 5 mg PO BID 15 Days Qty: 30 2RF venlafaxine 37.5 mg Capsule,Extended Release 24hr 112.5 mg PO QAM 30 Days Qty: 90 1RF trazodone 50 mg Tablet 50 mg PO QHS PRN (Reason: Insomnia) 15 Days Qty: 15 1RF Follow Up: [facility] [Outside] (was referred at last admission) [facility] [place] [Outside] (for any urgent medical needs) Exam Physical Exam Vital Signs: Temp Pulse Resp BP Pulse Ox O2 Del Method 97.7 F 102 H 15 122/87 99 Room Air 11/16/24 07:30 11/16/24 07:30 11/16/24 07:30 11/16/24 07:30 11/16/24 07:30 11/16/24 09:00 Documented By: Dashawn Moreno MD 11/16/24 1247 Signed By: <Electronically signed by Dashawn Moreno MD> 11/16/24 1251 [facility] Work Phone: evaluation noteNo InformationNort Soundstache Other Evalubbjto noteNo assessment information available [facility] Work Phone: evaluation note* Diagnosis Onset Date Resolution Status care following vaginal delivery acute [facility] Work Phone: Evaluation note* Diagnosis Chronic GERD Diarrhea, unspecified type Gas pain Flatulence, eructation, and gas pain documented in this encounter [facility]* Diagnosis Viral upper respiratory tract infection- Primary Acute upper respiratory infections of unspecified site documented in this encounter [facility]* Diagnosis Postoperative pain- Primary Other acute postoperative pain Menorrhagia with regular cycle Excessive or frequent menstruation Pelvic pain Adenomyosis Endometriosis of uterus Pelvic congestion syndrome [facility] Diagnosis Right ovarian cyst- Primary Other and unspecified ovarian cyst documented in this encounter [facility]* Diagnosis Pelvic pain [facility] Diagnosis Abdominal pain, right lower quadrant- Primary Pelvic pain documented in this [facility]* Diagnosis Right ovarian cyst- Primary Other and unspecified ovarian cyst documented in this encounter [facility]* Diagnosis Right ovarian cyst- Primary Other and unspecified ovarian cyst [facility]* Diagnosis Pneumoperitoneum- Primary Other specified disorder of peritoneum Pneumoperitoneum Other specified disorder of peritoneum Perforated diverticulum Peritoneal cavity free air Other specified disorder of peritoneum Postoperative pain Other acute postoperative pain Abdominal pain Abdominal pain, unspecified site Anxiety Anxiety state, unspecified [facility]* Diagnosis Right lower quadrant pain- Primary Pelvic pain in female Unspecified symptom associated with female genital organs Right ovarian cyst Other and unspecified ovarian cyst [facility] Diagnosis Onset Date Resolution Status Admit Date Contact with and (suspected) exposure to covid-19 noneactive July 22 12:11pm [facility] Work Phone: Evaluation note* Diagnosis Pelvic abscess in female- Primary Change or removal of drains Other specified aftercare following surgery [facility] Diagnosis Pelvic pain- Primary Routine general medical examination at a health care facility [facility] Diagnosis Abdominal pain in female- Primary documented in this encounter [facility]* Diagnosis Abdominal pain in female- Primary documented in this encounter [facility]* Diagnosis Abdominal pain in female- Primary Pelvic pain in female Unspecified symptom associated with female genital organs documented in this encounter [facility]* Diagnosis Severe episode of recurrent major depressive disorder, without psychotic features (HCC) (CMS/HCC)- Primary documented in this encounter [facility]* Diagnosis Onset Date Resolution Status Admit Date Major depressive disorder acute November 07, 2024 1:28am Suicidal ideation acute October 1:28am [facility] Work Phone: History and physical note Author Kit fox [facility] Note Date/Time November 07, 2024 1:12p m [facility] [address] [place] [address] Psychiatry H&P Signed Patient: Barbra Claros MR#: [id number] : 1995 Acct:[id number] Age/Sex: 29 / F Adm Date: 5 Loc: Room: [address] [place] [address] Type: ADM IN Attending Dr: Kit Gutierrez MD Copies to: Kit Gutierrez MD NO FAMILY PHYSICIAN~ Date of Service: 11/07/2024 HPI History of Present Illness History of present illness: Ms. Claros is a 29 year old female with a reported history of?Crohn's disease, blood transfusion reaction, ovarian cyst, depression, anxiety who presents for inpatient treatment due to depression and suicidal ideation with new onset auditory hallucinations. Reportedly, the patient presented to the ER stating that she has not right and has been having mental health issues recently with thoughts of suicide. Told the ED physician that she was contemplating taking a bunch of pills to kill herself. Also told ED provider that she has been hearing whispers which is new for her. UDS positive for marijuana only. She told night nurse that she has been feeling suicidal for a couple of months but it has been worse recently. 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 Patient states she was brought to the ER by a friend but sat in the car crying for over an hour before coming in to be seen. Patient reports triggers for her SI include a recent separation from her significant other, difficulty with her children's father, and toxic relationships with her parents. Patient reports that she feels defeated, hopeless, does not feel strong and asked would my kids be better off without me? Patient stated that she feels like she is a burden and that she needs to be somewhere safe because she wants to take a bunch of her pills. 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 She was agreeable to treatment and hopes to find a way to manage the way she has been feeling. Throughout admission interview, patient's affect was flat and voice was quiet/monotone. She was cooperative with admission assessment. Patient continueddepression, significant anxiety, and ongoing SI. She states she will remain safeon the unit. She denies AVH and is not delusional. Patient was personally seen by me on the day of the encounter. I reviewed the history and performed the hunter elements of the assessment. I formulated the planof care and confirmed this with the medical student as noted below At the time of the interview, he presented as depressed and tearful, particularly when discussing her children.? This morning admits to depression and anxiety with feelings of hopelessness. She does not like being here as she does not know anyone and misses her children very much. Has had a history of depression and anxiety before but recently has been hearing voices particularly on her left side and ever whispering to her. This is a new symptom and is very scary to her. Recently has been having difficulty sleeping and decreased appetite with a lot of nausea and chest pain. Has been having increasingly frequent panic attacks with shortness of breath nausea and heart palpitations. Specifically last Monday, she was sent to [facility] due to panic attacks at which time they suggested that she voluntarily admit herself to [address] but said she was talked out of it by her mother. Has been wanting to increase her venlafaxine dose recently. Tells me that she does not have a PCP or mental provider in the community but her medications are managed by her detective and intelligence analyst Dr. Gurrola. This morning she denies SI, HI, delusions. 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, vapes every day with nicotine Living: Lives in a trailer in [place] with her 4 children Employment: Unemployed Review of symptoms: Constitutional: Denies chills and denies fever(s) Eyes: Denies change in vision ENT: Denies abnormal hearing Cardiovascular: Denies chest pain Respiratory: Denies chest congestion and Denies cough Gastrointestinal: Denies change in bowel habits Genitourinary: Denies dysuria Musculoskeletal: Headache Integumentary/Breasts: Denies dry skin Neurologic: Denies abnormal gait and Denies abnormal movements Psychiatric: Reports depression and suicidal ideation Mental status exam ATTITUDE: Cooperative with interview SPEECH: Regular rate, steady rhythm, normal volume, and soft tone MOOD: Depressed AFFECT: Dysthymic, tearful THOUGHT PROCESS: Linear, logical, goal oriented THOUGHT CONTENT: Patient denies and does not express thoughts of or indicate behaviors contingent with suicidal ideation, homicidal ideation, auditory or visual hallucinations, or delusion content. Patient is not responding to internal stimuli. ORIENTATION: Patient is oriented to person, place, time, and situation MEMORY: Patient's memory is grossly intact JUDGMENT: Limited INSIGHT INTO PROBLEM: Limited Patient's Strengths and Protective Factors: - Willing to comply - Good physical health Patient's Weaknesses and Risk Factors: -History of alcohol abuse but is consistent with AA -Limited social support Attitude for Change: Fair AIMS: no abnormal movements noted. Score is zero.? Physical exam: Const: cooperative Nutritional Appearance: Average body habitus Orientation: alert, awake and oriented x3 HEENT: Head normal to inspection, hearing grossly normal bilaterally, external nose normal, face symmetric Eyes: appearance normal, both eyes and all related structures, sclerae normal Neck: normal visual inspection and full ROM Resp: normal respiratory effort, able to speak in complete sentences and symmetric chest movement Cardio: regular rate GI: normal to inspection and non-distended : deferred Skin: no rashes or lesions noted Neuro: CNI: Normal olfaction. Visual rasheed intact. CNIII,IV,: EOM intact, no nystagmus. Pupils equal, round, reactive to light and accommodation, CNV: Sensation intact to light touch, CNVII: Raises eyebrows, smile/frown, puff out cheeks symmetrically, CNVIII: Hearing intact bilaterally, CNIX,X: Voice normal, soft palate elevation normal, symmetrical, CNXI: Shoulder shrug strong, equal bilaterally, CNXII: Tongue protrusion midline, movement symmetrical. Extrem: normal to inspection and full ROM [facility] Medical History Headache Dysphagia Crohn's disease Hx of blood transfusion reaction Ovarian cyst Stomach pain Problem List clean-up per request of Phys. [facility] removal of cyst in 09/20/2019 Problem List clean-up per request of Phys. EHR [facility] Depression was on medication, stopped taking medication years ago Problem List clean-up per request of Phys. EHR [facility] Anxiety Problem List clean-up per request of Phys. EHR [facility] Hemorrhagic cyst of right ovary Problem List clean-up per request of Phys. EHR [facility] Kidney stones with last Problem List clean-up per request of Phys. EHR [facility] No pertinent past medical history Problem List clean-up per request of Phys. 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) Meds Medications and Allergies Allergies chlorpheniramine (From [facility] Cold and Cough) Allergy (Verified 11/06/24 21:38) Swelling of Lip/Tongue/Throat dextromethorphan (From [facility] Cold and Cough) Allergy (Verified 11/06/24 21:38) Swelling of Lip/Tongue/Throat pseudoephedrine (From Triaminic Cold and Cough) Allergy (Verified 11/06/24 21:38) Swelling of Lip/Tongue/Throat triaminic Allergy (Unknown, Uncoded 01/08/24 12:35) Anaphylaxis Home Medications venlafaxine 75 mg capsule,extended release 24 hr 75 mg PO QAM 07/22/24 [History Confirmed 11/07/24] hydroxyzine HCl 50 mg tablet 50 mg PO TID 11/07/24 [History Confirmed 11/07/24] Exam Physical Exam Vital Signs: Temp Pulse Resp BP Pulse Ox O2 Del Method 97.9 F 64 18 105/68 98 Room Air 11/07/24 07:30 11/07/24 07:30 11/07/24 07:30 11/07/24 07:30 11/07/24 07:30 11/07/24 07:30 Results - Psychiatry Labs 11/06/24 21:58 11/06/24 21:58 Psychiatry Labs: 11/06/24 11/06/24 21:45 21:58 RBC 4.27 Hgb 12.6 Hct 36.8 MCV 86.1 MCH 29.4 MCHC 34.2 RDW 14.8 Plt Count 264 MPV 7.8 Sodium 139 Potassium 3.7 Chloride 106 Carbon Dioxide 27.1 Anion Gap 9.6 BUN 6 L Creatinine 0.67 Calcium 9.1 Total Bilirubin 0.3 AST 13 ALT 11 Alkaline Phosphatase 52 Total Protein 7.2 Albumin 4.5 Urine Color Light-yellow Urine Appearance Clear Urine pH 5.5 Ur Specific [place] 1.015 Urine Protein Negative Urine Glucose (UA) Normal Urine Ketones Negative Urine Occult Blood Trace H Urine Nitrite Negative Ur Leukocyte Esterase 2+ H Urine RBC None seen Urine WBC 1-2 Assessment/Plan (1) Major depressive disorder: (2) Suicidal ideation: Plan Assessment and plan: Ms. Claros is a 29 year old female with a reported history of?Crohn's disease, blood transfusion reaction, ovarian cyst, depression, anxiety who presents for inpatient treatment due to depression and suicidal ideation with new onset auditory hallucinations. 1. Increase home Effexor to 112.5 mg p.o. every morning (not PRN) (Risks, benefits, and indications are discussed) 2. Monitor mental status 3. Encourage psychotherapy 4. Case management will work on a safe discharge plan.? Documented By: Kit Gutierrez MD 5 [id number] Signed By: <Electronically signed by Kit Gutierrez MD> 11/07/24 1312 [facility] Work Phone: History and physical note Author Dashawn Moreno [facility] Note Date/Time November 15, 2024 11:[address] [facility] [address] [place] [address] Psychiatry H&P Signed Patient: Barbra Claros MR#: [id number] : 1995 Acct:[id number] Age/Sex: 29 / F Adm Date: 5 Loc: 1S Room: [address] [place] [address] Type: ADM IN Attending Dr: Dashawn Moreno MD Copies to: Dashawn Moreno MD FAMILY PHYSICIAN Casey Munoz DO, RES~ Date of Service: 11/15/2024 HPI History of Present Illness History of present illness: Ms. Claros is a 29-year-old female with past reported history of headache, dysphagia, Crohn's disease, history of blood transfusion reaction, ovarian cyst,stomach pain, depression, anxiety, hemorrhagic cyst of right ovary, kidney stones who presents to us for treatment of major depressive disorder and suicidal ideation. Reportedly, patient presented to the ER last night due to concerns of anxiety and depression. She noted that [facility]. She noted that the medication seemed to have been working when she was discharged, but is not working now. Despite continuing her medications and using it, she has developed thoughts of wanting to kill herself. She was contemplating self harming and overdosing on pills. She denied any alcohol or drugs on the day of ER presentation. She denied hearing voices or having any homicidal ideation. She was tearful and admits to feeling panicked and anxious. She had no medical complaints at that time. Workup in the ER revealed positive urine for marijuana. Patient was medically cleared. At the time of the interview, she presented as severely depressed. Patient confirms the above story to me. She notes that she has had an amalgamation of life stressors over the past year including some trauma and family loss that shedoes not wish to discuss at this time. She confirms that she was taking her BuSpar and venlafaxine as prescribed. She was also on trazodone and hydroxyzineas needed. She notes that she started to develop worsening anxiety and depression and suicidal thoughts over the past 3 days since being discharged from the unit. Currently, she rates her depressed mood a 10 out of 10, rates her anxiety a 10 out of 10, and confirms auditory hallucinations of voices telling her to kill herself. She does not recognize some of these voices. She denies visual hallucinations. She denies SI and HI at this time. She reports poor appetite and poor sleep. She confirms feelings of hopelessness, feelings of guilt, depressed mood, and has psychomotor retardation. History of dependentpersonality tendencies is also noted on intake today. Nurse admission note was reviewed. No further pertinent findings were found. All questions and concernswere addressed with patient. Past psych history: Reports history of anxiety and depression Past hospitalizations: Confirms with last one 3 days ago. 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 Denies suicidal ideation. Reports anxiety. Mental status exam ATTITUDE: Cooperative with interview SPEECH: Slow rate, steady rhythm, low volume, soft tone MOOD: Depressed AFFECT: Flat THOUGHT PROCESS: Linear, logical, goal oriented THOUGHT CONTENT: Patient denies and does not express thoughts of or indicate behaviors contingent with suicidal ideation, homicidal ideation, or visual hallucinations, or delusion content. Patient is not responding to internal stimuli. Confirms auditory hallucinations. ORIENTATION: AO x 4 MEMORY: Memory is grossly intact. JUDGMENT: Fair INSIGHT INTO PROBLEM: Fair Patient's Strengths and Protective Factors: - Willing to comply - Good physical health. - Desire for improvement - Compliance to medications Patient's Weaknesses and Risk Factors: - Emotional lability - Severe presentation. - New onset auditory hallucinations. Attitude for Change: - Fair-good AIMS: no abnormal movements noted. Score is zero. Patient was personally seen by me on the day of the encounter. I reviewed the history and performed the hunter elements of the physical examination. I formulated the plan of care and confirmed this with the resident as noted below. [facility] Medical History (Updated 11/15/24 @ 05:33 by Ameya Salguero DO) Headache Dysphagia Crohn's disease Hx of blood transfusion reaction Ovarian cyst Stomach pain Problem List clean-up per request of Phys. EHR Cmte Ovarian cyst removal of cyst in 09/20/2019 Problem List clean-up per request of Phys. EHR Cmte Depression was on medication, stopped taking medication years ago Problem List clean-up per request of Phys. EHR Cmte Anxiety Problem List clean-up per request of Phys. EHR Cmte Hemorrhagic cyst of right ovary Problem List clean-up per request of Phys. EHR Cmte Kidney stones with last Problem List clean-up per request of Phys. EHR Cmte No pertinent past medical history Problem List clean-up per request of Phys. 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) Social History Comments: mobile home Meds Medications and Allergies Allergies chlorpheniramine (From Triaminic Cold and Cough) Allergy (Verified 11/14/24 21:38) Swelling of Lip/Tongue/Throat dextromethorphan (From Triaminic Cold and Cough) Allergy (Verified 11/14/24 21:38) Swelling of Lip/Tongue/Throat pseudoephedrine (From Triaminic Cold and Cough) Allergy (Verified 11/14/24 21:38) Swelling of Lip/Tongue/Throat triaminic Allergy (Unknown, Uncoded 01/08/24 12:35) Anaphylaxis Home Medications hydroxyzine HCl 50 mg tablet 50 mg PO TID 11/07/24 [History Confirmed 11/14/24] buspirone 5 mg tablet 5 mg PO BID 15 days #30 tabs 11/10/24 [Rx Confirmed 11/14/24] ondansetron 4 mg disintegrating tablet 4 mg PO Q6HR PRN Nausea 30 days #30 tabs 11/10/24 [Rx Confirmed 11/14/24] trazodone 50 mg tablet 50 mg PO QHS PRN Insomnia 15 days #15 tabs 11/10/24 [Rx Confirmed 11/14/24] venlafaxine 37.5 mg capsule,extended release 24 hr 112.5 mg (3 x 37.5 mg) PO QAM30 days #90 caps 11/10/24 [Rx Confirmed 11/14/24] Exam Physical Exam Vital Signs: Temp Pulse Resp BP Pulse Ox O2 Del Method 98 F 92 18 110/73 100 Room Air 11/15/24 07:30 11/15/24 07:30 11/15/24 07:30 11/15/24 07:30 11/15/24 07:30 11/15/24 08:45 Narrative: Physical exam: Const: cooperative Nutritional Appearance: Average body habitus Orientation: alert, awake and oriented x3 HEENT: Head normal to inspection, hearing grossly normal bilaterally, external nose normal, face symmetric Eyes: appearance normal, both eyes and all related structures, sclerae normal Neck: normal visual inspection and full ROM Resp: normal respiratory effort, able to speak in complete sentences and symmetric chest movement Cardio: regular rate GI: normal to inspection and non-distended : deferred Skin: no rashes or lesions noted Neuro: CNI: Normal olfaction, CNII: Visual rasheed intact, CNIII,IV,: EOM intact, no nystagmus. Pupils equal, round, reactive to light and accommodation, CNV: Sensation intact to light touch, CNVII: Raises eyebrows, smile/frown, puff out cheeks symmetrically, CNVIII: Hearing intact bilaterally, CNIX,X: Voice normal, soft palate elevation normal, symmetrical, CNXI: Shoulder shrug strong, equal bilaterally, CNXII: Tongue protrusion midline, movement symmetrical. Extrem: normal to inspection and full ROM Results - Psychiatry Labs 11/14/24 21:57 11/14/24 21:57 Psychiatry Labs: 11/14/24 11/14/24 21:57 22:03 RBC 4.17 Hgb 12.2 Hct 35.9 MCV 86.2 MCH 29.2 MCHC 33.9 RDW 14.5 Plt Count 231 MPV 7.7 Sodium 139 Potassium 3.7 Chloride 105 Carbon Dioxide 27.8 Anion Gap 9.9 BUN 10 Creatinine 0.54 L Calcium 8.9 Total Bilirubin 0.2 L AST 36 ALT 36 Alkaline Phosphatase 54 Total Protein 7.1 Albumin 4.3 Urine Color Yellow Urine Appearance Clear Urine pH 7.0 Ur Specific [place] 1.031 H Urine Protein 20 H Urine Glucose (UA) Normal Urine Ketones Negative Urine Occult Blood Negative Urine Nitrite Negative Ur Leukocyte Esterase Negative Urine RBC 3-4 Urine WBC 1-2 Assessment/Plan (1) Major depressive disorder: (2) Suicidal ideation: Plan Ms. Claros is a 29-year-old female with past psychiatric history of anxiety and depression who presents to us for treatment of worsening depression and suicidalideation. Longstanding medications include BuSpar, venlafaxine, trazodone, hydroxyzine Continue BuSpar 5 mg twice daily. Continue trazodone and hydroxyzine p.o. as needed. Alter venlafaxine dose to 150 mg p.o. once a day. Add Abilify 10 mg p.o. once a day at nighttime. 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 Martinez [facility] Work Phone: Hospital Discharge instructions* Attachments The following attachments cannot be sent through Care Everywhere. * EGD (Upper Endoscopy): Post-op ([place]) [facility] Attachments The following attachments cannot be sent through Care Everywhere. * URI (Upper Respiratory Infection): Viral ([place]izen [place]) [facility] Additional Instructions Important Contact Information You can call [facility]patient [facility]al Health at [phone] any time day or night if you have emergent questions or question regarding discharge instructions. If at any time you are feeling an increase in your psychiatric symptoms, call your physician or behavioral healthcare provider. If any time you have thoughts of harming yourself or others contact one of the following: Call [phone] (available 09/01) Crisis Text Line (available 09/01) text 4HOPE to [phone] [facility] Hope Line (available 8 a.m. Midnight) call [phone] ([phone]) [facility] Work Phone: InstructionsNot on filedocumented in this encounter [facility] filedocument[facility] in this encounter [facility]Not on filedocumented in this encounter [facility]Not on filedocumented in this encounter [facility]Not on filedocumented in this encounter [facility]ructionsNot on filedocumented in this encounter [facility] note Author Kit fox [facility] Note Date/Time November 08, 2024 1:42p m [facility] [address] [place] [address] Psychiatry Progress Note Signed Patient: Barbra Claros MR#: [id number] : 1995 Acct:[id number] Age/Sex: 29 / F Adm Date: 5 Loc: Room: [address] [place] [address] Type : ADM IN Attending Dr: Kit Gutierrez MD Copies to: ~ Date of Service: 11/08/2024 Subjective Subjective Narrative: Today's hospital day 2. No overnight events. Says she slept well for the firsttime in weeks, all the way through the night. However she woke up with this badanxiety this morning because she is worried about her kids. Her depression is much more manageable but still there. She did share some insight that she is recently getting into her condition with me, she is now recognizing that cutting, which she used to do, is not a good coping skill. She would like to try journaling instead. She has no complaints about her medication. She denies SI,HI, AVH, delusions. Participated in some group activities. Patient was personally seen by me on the day of the encounter. I reviewed the history and performed the hunter elements of the assessment. I formulated the planof care and confirmed this with the medical student as noted below Mental status exam ATTITUDE: Cooperative with interview SPEECH: Regular rate, steady rhythm, normal volume, and soft tone MOOD: Anxious AFFECT: Dysthymic, tearful THOUGHT PROCESS: Linear, logical, goal oriented THOUGHT CONTENT: Patient denies and does not express thoughts of or indicate behaviors contingent with suicidal ideation, homicidal ideation, auditory or visual hallucinations, or delusion content. Patient is not responding to internal stimuli. ORIENTATION: Patient is oriented to person, place, time, and situation MEMORY: Patient's memory is grossly intact JUDGMENT: Limited INSIGHT INTO PROBLEM: Limited Exam Physical Exam Vital Signs: Temp Pulse Resp BP Pulse Ox O2 Del Method 97.9 F 68 16 107/64 96 Room Air 11/08/24 07:30 11/08/24 07:30 11/08/24 07:30 11/08/24 07:30 11/08/24 07:30 11/08/24 07:30 Assessment/Plan Assessment/Plan (1) Suicidal ideation: (2) Major depressive disorder: Plan 1. Add buspirone 5 mg p.o. twice daily for anxiety. Continue Effexor to 112.5 mg p.o. every morning (not PRN) (Risks, benefits, and indications are discussed) 2. Monitor mental status 3. Encourage psychotherapy 4. Case management will work on a safe discharge plan.? Documented By: Kit Gutierrez MD 5 [id number] Signed By: <Electronically signed by Kit Gutierrez MD> 11/08/24 8256 [facility] Work Phone: Progress note Author Kit fox [facility] Note Date/Time November 09, 2024 7:31a m [facility] [address] [place] [address] Psychiatry Progress Note Signed Patient: Barbra Claros MR#: [id number] : 1995 Acct:[id number] Age/Sex: 29 / F Adm Date: 5 Loc: Room: [address] [place] [address] Type : ADM IN Attending Dr: Kit Gutierrez MD Copies to: ~ Date of Service: 11/09/2024 Subjective Subjective Narrative: No overnight events. Patient said that Buspar is helping with anxiety and noticed a better ability to manage her emotions. She also reports improvement of sleep and feels that her energy is improving. Affect is improving. She denies SI, HI, AVH, delusions. Participated in some group activities. I talked with about the importance of ongoing treatment for depression. She stated that she understood and accepted outpatient follow up. I have encouragedher to schedule twice weekly sessions of psychotherapy. While her mental healthsymptoms are chronic, she does not currently pose a threat to self or others. She reported that she was self harming about 1 month ago but no self harm behaviors recently. She has no history of recent suicide attempts, presented as future-oriented, participated in group activities, articulated needs appropriately, and displayedno self-harm behaviors since being admitted to the inpatient unit. Imminent riskis low, given the factors noted above. She denied any current symptoms that would pose a threat to herself or others. Further inpatient hospitalization is unlikely to mitigate chronic suicide risk, and pt agrees to f/u with outpatient psych care. We also discussed the benefits of outpatient CBT and DBT to help with depression and reduce suicide risk. She identified protective factors and calming techniques and created a safety plan. At this time, the patient has maximized the benefit from inpatient hospitalization, as can be determined with reasonable medical certainty. She said her family will pick her up tomorrow or her BF. As we assessed her discharge readiness, the patient understood the importance ofcontinued outpatient treatment and medication adherence. The patient voiced understanding of the discharge plan discussed with the treatment team. While it is impossible to predict suicide or homicide, my discussion with staff indicated the patient manifested a low risk of acute harm to self or others and a low-moderate chronic risk, evidenced by the psychiatric history andthe subjective and objective condition at that time. The patient denies any active psychiatric signs and symptoms significantly deviating from baseline functioning. Residual suicide/homicide/psychosis/violence/inability to care for self is low risk as maximization of inpatient psychiatry treatment benefit was achieved to address acute risks, which initially led to admission. Overall, she has a positive mood and attitude towards life. Mental Status: grossly normal Speech and Movement: speech and movement are normal and speech clear Appearance: dressed casually Mood: Euthymic mood Affect: Normal affect Attitude: cooperative Thought Process: Normal Thought Content: Denied hallucinations, no homicidally, and no suicidality Insight: fair Judgment: fair Impulse control: fair Exam Physical Exam Vital Signs: Temp Pulse Resp BP Pulse Ox O2 Del Method 97.6 F 98 20 121/84 98 Room Air 11/08/24 23:30 11/08/24 23:30 11/08/24 23:30 11/08/24 23:30 11/08/24 23:30 11/08/24 23:30 Assessment/Plan Assessment/Plan (1) Suicidal ideation: (2) Major depressive disorder: Plan 1. Patient reports symptom improvement and denied any SI/HI. Continue buspirone5 mg p.o. twice daily for anxiety, Effexor to 112.5 mg p.o. every morning (not PRN) (Risks, benefits, and indications are discussed) 2. Monitor mental status 3. Encourage psychotherapy 4. Case management will work on a safe discharge plan.? Documented By: Kit Gutierrez MD 5 [id number] Signed By: <Electronically signed by Kit Gutierrez MD> 11/09/24 0768 [facility] Work Phone: Reason for referral (narrative)* Consultation (Routine) - Pending Review Specialty Diagnoses / Procedures Referred By Siomara t Referred To Contact Internal Medicine Diagnoses Routine general medical examination at a health care facility Lisha Owusu MD [address] [facility], [address] [place] [address] [facility] [address] [place] [address] Referral ID Status Reason Start Date Expiration Date Visits Requested Visits Authorized [id number] Pending Review Specialty Services Required 02/15/2024 02/14/2025 1 1 [facility] for visit NarrativePATIENT HERE AT THE REQUEST OF DR. 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, NAUSEA& VOMITING, ABDOMINAL PAIN, [facility] Other Chief Complaint and Reason for Visit Chief Complaint Admit Date Mental Health Eval November 07, 2024 1:28a m Mental Health Eval November 07, 2024 11:21 am Reason for Visit Admit Date Major depressive disorder November 07, 2024 1:28am Suicidal ideation November 07, 2024 1:28a m Chief Complaint IUP (Intrauterine Pr egnancy) iup [...] exposure to covid-19 July 22, 2024 12:11pm Chief Complaint Admit Date Mental Health Eval November 07, 2024 1:28a m Chief Complaint Admit Date Mental Health Eval November 07, 2024 1:28a m Mental Health Eval November 07, 2024 11:21 am SI November 14, 2024 11:39 pm Chief Complaint Admit Date Mental Health Eval November 07, 2024 1:28a m Mental Health Eval November 07, 2024 11:21 am SI November 14, 2024 11:39 pm SI November 15, 2024 10:49 am Reason for Visit Admit Date Major depressive disorder November 07, 2024 1:28am Suicidal ideation November 07, 2024 1:28a m Major depressive disorder November 14, 2024 11:39pm Suicidal ideation November 14, 2024 11:39 pm Advance Directives No Advanced Directives Records Found [...] Agents on File Name Relationship Healthcare Agent Elzbietahi p Communication Seth Bravo Spouse Primary Decision Maker Date Activated Date Inactivated Comments 11/27/2020 2:29 AM 11/30/2020 7:03 PM Date Activated Date Inactivated Comments 11/27/2020 2:29 AM 11/30/2020 7:03 PM Summary Purpose Family History Relationship Condition Age at Onset Recorded Date/T neeta Not Specified No pertinent family history Unknown Hypertension Unknown brother Heart murmur Unknown Relationship Condition Age at Onset Recorded Date/T neeta Not Specified No pertinent family history Unknown brother Heart murmur Unknown No Family History Records Found Additional Source Comments REASON FOR VISIT (unrecogniz ed section and content) Specialty Diagnoses / Procedures Referred By Siomara dumas Referred To Contact Diagnoses Chronic GERD Diarrhea, unspecified type Gas pain [id number] GERD [id number]-[id number], unspecified type [id number] pain Procedures IA ESOPHAGOGASTRODUODENOSCOPY TRANSORAL DIAGNOSTIC IA EGD TRANSORAL BIOPSY SINGLE/MULTIPLE IA EGD BALLOON DILATION ESOPHAGUS <30 MM DIAM EGD Kisha Rangel MD [address] [place] [address] [facility] [address] [place] [address] Referral ID Status Reason Start Date Expiration Date Visits Re quested Visits Authorized [id number] 1 1 Reason Comments Chest Pain Shortness [...] Adenomyosis [N80.03] Pelvic congestion syndrome [N94.89] Procedures IA LAPS TOTAL HYSTERECT 250 GM/< W/RMVL TUBE/OVARY HYSTERECTOMY VAGINAL LAPAROSCOPIC ROBOTIC ASSISTED - POSSIBLE BILATERAL SALPINGOOPHORECTOMY, POSSIBLE LAPAROSCOPIC COLPOPEXY Radha LaMickie toure, DO [address] [place] [address] [facility] [address] [id number] [place] [address] Referral ID Status Reason Start Date Expiration Date Visits Re quested Visits Authorized [id number] 1 1 Reason Comments Abdominal Pain Pt [...] By Siomara dumas Referred To Contact Diagnoses Pneumoperitoneum Perforated diverticulum Nicolette Wyman MD [address] [place] [address] [facility] [address] [place] [address] Referral ID Status Reason Start Date Expiration Date Visits Re quested Visits Authorized [id number] 1 1 Reason Onset Date Comments Pain [...] NO FAMILY Primary Care Provider Active Start: November 07, 2024 End: November 10, 2024 Duane Simons DO Emergency Provider Active Start: November 07, 2024 End: November 10, 2024 Kit Gutierrez MD Admit Provide r, Attending Provider Active Start: November 07, 2024 End: November 10, 2024 Team Status: Active Member Role Status Dates PHYSICIAN NO FAMILY Primary Care Provider Active Start: November 07, 2024 Duane Simons DO Emergency Provider Active Start: November 07, 2024 Kit Gutierrez MD Admit Provide r, Attending Provider, Other Provider Active Start: November 07, 2024 Team Status: Active Member Role Status Dates PHYSICIAN NO FAMILY Primary Care Provider Active Start: November 07, 2024 Duane Simons DO Emergency Provider Active Start: November 07, 2024 Kit Gutierrez MD Admit Provide r, Attending Provider Active Start: November 07, 2024 Team Status: Inactive Member Role Status Dates PHYSICIAN NO FAMILY Primary Care Provider Active Juany Choi DO Attending Provider Active Team Status: Inactive Member Role Status Dates PHYSICIAN NO FAMILY Primary Care Provider Active Jonathan Monahan DO Attending Provider Active Team Status: Active Member Role Status Dates Michael Gurrola MD Primary Care Provider Active Team Status: Inactive Member Role Status Dates Michael Gurrola MD Attending Provider Active Team Status: Inactive Member Role Status Sarika Gurrola MD Primary Care Provider Active Melinda Beltre MD Attending Provider Active Team Status: Inactive Member Role Status Sarika Gurrola MD Attending Provider Active PHYSICIAN NO FAMILY Primary Care Provider Active Team Status: Inactive Member Role Status Dates PHYSICIAN NO FAMILY Primary Care Provider Active Michael Gurrola MD Attending Provider Active Team Status: Inactive Member Role Status Dates PHYSICIAN NO FAMILY Primary Care Provider Active Melinda Beltre MD Attending Provider Active Team Status: Inactive Member Role Status Dates PHYSICIAN NO FAMILY Primary Care Provider Active Jonathan Visci , DO Admit Provider, Attending Provider Active Health Professor Relationship Specialty Start Date End Date Melida Huang APRN [facility] [address] [place] [address] PCP - General Nurse Practitioner 07/14/23 Health Professor Relationship Specialty Start Date End Date Melida Huang APRN [facility] [address] [place] [address] PCP - General Nurse Practitioner 07/14/23 Health Professor Relationship Specialty Start Date End Date Melida Huang APRN [facility] [address] [place] [address] PCP - General Nurse Practitioner 07/14/23 Team Status: Inactive Member Role Status Dates PHYSICIAN NO FAMILY Primary Care Provider Active Start: January 08, 2024 End: January 08, 2024 Nikhil Quiñones PA-C Emergency Provider Active Start: January 08, 2024 End: January 08, 2024 Health Professor Relationship Specialty Start Date End Date Melida Huang APRN [facility] [address] [place] [address] PCP - General Nurse Practitioner 07/14/23 Health Professor Relationship Specialty Start Date End Date Melida Huang APRN [facility] [address] [place] [address] PCP - General Nurse Practitioner 07/14/23 Health Professor Relationship Specialty Start Date End Date Melida Huang APRN [facility] [address] [place] [address] PCP - General Nurse Practitioner 07/14/23 Health Professor Relationship Specialty Start Date End Date Melida Huang [facility] [address] [place] [address] PCP - General Nurse Practitioner 07/14/23 Health Professor Relationship Specialty Start Date End Date Melida Huang [facility] [address] [place] [address] PCP - General Nurse Practitioner 07/14/23 Health Professor Relationship Specialty Start Date End Date Melida Huang [facility] [address] [place] [address] PCP - General Nurse Practitioner 07/14/23 Health Professor Relationship Specialty Start Date End Date Melida Huang [facility] [address] [place] [address] PCP - General Nurse Practitioner 07/14/23 Health Professor Relationship Specialty Start Date End Date Unallocated, Juliet Ivan MD [address] [place] [address] PCP - General 12/01/22 Michael Gurrola MD [address] [place] [address] Obstetrics and Gynecology 03/08/23 Health Professor Relationship Specialty Start Date End Date Unallocated, Juliet Ivan MD [address] [place] [address] PCP - General 12/01/22 Michael Gurrola MD [address] [place] [address] Obstetrics and Gynecology 03/08/23 Team Status: Inactive Member Role Status Dates PHYSICIAN NO FAMILY Primary Care Provider Active Start: July 22, 2024 End: July 22, 2024 Fe Cruz APRN Attending Provider Active S tart: July 22, 2024 End: July 22, 2024 Health Professor Relationship Specialty Start Date End Date Melida [facility] [address], [facility] [[email or web address] [place] [address] PCP - General Family Medicine 01/11/22 Health Professor Relationship Specialty Start Date End Date Melida Huang [facility] [address], [facility] [[email or web address]] [place] [address] PCP - General Family Medicine 01/11/22 Health Professor Relationship Specialty Start Date End Date Melida [facility] [address], [facility] [[email or web address]] [place] [address] PCP - General Family Medicine 01/11/22 Health Professor Relationship Specialty Start Date End Date [facility] [address], [facility] [[email or web address] [place] [address] PCP - General Family Medicine 01/11/22 Health Professor Relationship Specialty Start Date End Date Melida [facility] [address], [facility] [[email or web address]] [place] [address] PCP - General Family Medicine 01/11/22 Health Professor Relationship Specialty Start Date End Date No Pcp, [place] [address] PCP - General Family Medicine 02/07/24 Health Professor Relationship Specialty Start Date End Date Unallocated, Juliet Ivan MD [address] [place] [address] PCP - General 12/01/22 Michael Gurrola MD [address] [place] [address] Obstetrics and Gynecology 03/08/23 Health Professor Relationship Specialty Start Date End Date Unallocated, Juliet Ivan MD [address] [place] [address] PCP - General 12/01/22 Michael Gurrola MD [address] [place] [address] Obstetrics and Gynecology 03/08/23 Health Professor Relationship Specialty Start Date End Date Unallocated, Juliet Ivan MD [address] [place] [address] PCP - General 12/01/22 Michael Gurrola MD [address] [place] [address] Obstetrics and Gynecology 03/08/23 Team Status: Active Member Role Status Dates PHYSICIAN NO FAMILY Primary Care Provider Active Start: November 14, 2024 Ameya Salguero DO Emergency Provider Active St art: November 14, 2024 Dashawn Moreno MD Admit Provider, Attending Provider Active Start: November 14, 2024 Team Status: Inactive Member Role Status Dates PHYSICIAN NO FAMILY Primary Care Provider Active Start: November 14, 2024 End: November 16, 2024 Ameya Salguero DO Emergency Provider Active St art: November 14, 2024 End: November 16, 2024 Dashawn Moreno MD Admit Provider, Attending Provider Active Start: November 14, 2024 End: November 16, 2024 Team Status: Active Member Role Status Dates PHYSICIAN NO FAMILY Primary Care Provider Active Start: November 15, 2024 Ameya Salguero , Emergency Provider Active St art: November 15, 2024 Dashawn Moreno MD Admit Provider, Atte nding Provider, Other Provider Active Start: November 15, 2024 Goals (unrecognized section and content) Goals may [...] 100 mL IVPB (COMPLETED) 2,000 mg, IntraVENous, AUTOMOTIVE MECHANICAL ENGINEER TO O.R., 1 dose, On Mon11/20/23 at [...] Zhang RN)1356 (NoRateChange - Provider: Yancy Solorzano APRN - REFRIGERATING ENGINEER)1505 (Paused - Provider: Haylee Keen APRN - REFRIGERATING ENGINEER - Comment: Switch to gravity)1506 (New Bag - Provider: Haylee Keen APRN - REFRIGERATING ENGINEER)1530 (Anesthesia Volume Adjustment - Provider: Haylee Keen APRN - REFRIGERATING ENGINEER) PRN Medication Order 11/18/2023 11/19/2023 11/20/2023 0.9 [...] at 1611, Until Mon11/21/23 at 1611, Nausea, Secondary antiemetic therapy., PACU only sodium chloride flush 0.9 % injection 5-40 mL 5-40 mL, IntraVENous, PRN, Starting on Mon11/20/23 at 1134, Until Discontinued, Line Care, After [...] 30 mg, IntraVENous, ONCE, 1 dose, On Mon02/04/24 at 0000, Do not administer for more than 5 days. 2356 (Given - Provider: Meli Wills RN) morphine [...] ONCE, 1 dose, On 02/03/24 at 2130 2127 (Given - Provider: Meli Wills RN) PRN [...] over 10 to 15 minutes 1200 (New Bag - Prov ider: Meli Sousa RN)1313 (Stopped [...] 25 mcg, IntraVENous, ONCE, 1 dose, On Mon03/17/24 at 1045, If oral and IV narcotics ordered, use oral first and only use IV if oral is ineffective or cannot take oral. Do Not give oral and IV within 1 hour of each other unless specifically ordered. 1047 (Given - Provid er: Albertina Gibbs RN) morphine injection 4 mg 4 mg, IntraVENous, ONCE, 1 dose, On Mon03/17/24 at 1200, If oral and IV narcotics [...] mL/hr, Administer over 30 Minutes, ONCE, On 03/17/24 at 1045, For 1 dose 1044 (New Bag - Prov ider: Albertina Gibbs RN)1114 (Stopped - Provider: Albertina Gibbs RN) PRN Medication Order 03/15/2024 03/16/2024 03/17/2024 iopamidol (ISOVUE-370) 76 % injection 75 mL (COMPLETED) 75 mL, IntraVENous, IMG ONCE PRN, 1 dose, Starting on 03/17/24 at 1046, Until 03/17/24 at 1052, Other 1052 (Given - Provid [...] 1144 (Given - Provid er: Abby De Souza RN) ondansetron (ZOFRAN) injection 4 mg (COMPLETED) 4 mg, IntraVENous, ONCE, 1 dose, On Mon04/09/24 at 1200 1151 (Given - Provid er: Abby De Souza RN) Scheduled Medication Order 04/14/2024 04/15/2024 04/16/2024 bisacodyl (DULCOLAX) suppository 10 mg (COMPLETED) 10 mg, Rectal, ONCE, 1 dose, On Mon04/15/24 at 0730 0738 (Given - Provider: Juanis Contreras RN) docusate sodium (COLACE) capsule 100 mg 100 mg, Oral, 2 TIMES DAILY, First dose on Mon04/14/24 at 2100, Until Discontinued, Do not crush or break. 2132 (Given - Provider: Madeleine Brewer RN) 0835 (Given - Provider: Juanis Contreras RN)2046 (Given - Provider: Ivy Schmid RN) 0736 (Given - Provider: uJanis Contreras RN)2100 (Due) enoxaparin (LOVENOX) injection 40 mg 40 mg, SubCUTAneous, DAILY, First dose on Mon04/11/24 at 0900, Until Discontinued, Indication of Use: [...] modification) on Mon04/14/24 at 0900, Until Discontinued 08 (Given - Provider: Ayana Rodriguez RN)140 (Given - Provider: Ayana Rodriguez RN)213 (Given - Provider: Madeleine Brewer RN) 0835 (Given - Provider: Juanis Contreras RN)135 (Given - Provider: Juanis Contreras RN)2046 (Given - Provider: Ivy Schmid RN) 0735 (Given - Provider: Juanis Contreras [...] higher. 1920 (New Bag - Provider: Madeleine Brewer, HENNA)1950 (Stopped - Provider: Madeleine Brewer RN) sodium chloride flush 0.9 % injection 10 mL 10 mL, IntraVENous, EVERY 12 HOURS SCHEDULED (2 times per day), First dose on Mon04/11/24 at 0900, Until Discontinued 816 (Given - Provider: Ayana Rodriguez RN)191 (Given - Provider: Madeleine Brewer RN) 0836 (Given - Provider: Juanis Contreras RN)204 (Given - Provider: Ivy Schmid RN) 0740 (Given - Provider: Juanis Contreras RN)2100 (Due) venlafaxine (EFFEXOR XR) extended release capsule 75 mg 75 mg, Oral, DAILY WITH BREAKFAST, First dose on 04/14/24 at 0815, Until Discontinued, Do not crush or break. 0817 (Given - Provider: Ayana Rodriguez, RN) 0835 (Given - Provider: Juanis Contreras, RN) 0736 (Given - Provider: Juanis Contreras [...] Rodriguez, HENNA)2139 (New Bag - Provider: Madeleine Brewer RN) 0621 (Held by provider - Provider: Nicolette Wyman MD - Reason: Other)0800 (Stopped - Provider: Juanis Contreras RN)0904 (Unheld by provider - Provider: Brandee Rivera APRN - MACHINE MOLDER) PRN Medication Order 04/14/2024 04/15/2024 04/16/2024 0.9 [...] Discontinued, Anxiety 0623 (Given - Provider: Ayana Rodriguez RN) 0734 (Given - Provider: Juanis Contreras, RN) HYDROmorphone (DILAUDID) injection 0.25 mg (CANCELED)(Linked Group 1) 0.25 mg, IntraVENous, EVERY 3 HOURS PRN, Starting on Mon04/12/24 at 0656, Until Tu04/16/24 at 0640, Pain Moderate (4-6), If oral and IV narcotics ordered, use oral first and only use IV if oral is ineffective or cannot take oral. Do Not give oral and IV within 1 hour of each other unless specifically ordered. 163 (See Alternative - Provider: Ayana Rodriguez RN)2133 (See Alternative - Provider: Madeleine Brewer RN) [...] Brewer RN)0734 (See Alternative - Provider: Juanis A West, RN) ondansetron (ZOFRAN-ODT) disintegrating tablet 4 mg(Linked Group 2) 4 mg, Oral, EVERY 8 HOURS PRN, Starting on Mariajose 04/11/24 at 0143, Until Discontinued, Nausea, Vomiting 0113 (See Alternative - Provider: Ivy Schmid RN)0817 (See Alternative - Provider: Ayana Rodriguez RN)1417 (See Alternative - Provider: Ayana Rodriguez RN) 0100 (See Alternative - Provider: Madeleine Brewer, HENNA)0734 (Given - Provider: Juanis Contreras RN) oxyCODONE-acetaminophen [...] 0100 (See Alternative - Provider: Madeleine Brewer, HENNA)0725 (See Alternative - Provider: Juanis Contreras RN)1246 [...] Juanis Contreras RN)1847 (Given - Provider: Ivy Schmid, RN)2232 (Given - Provider: Ivy Schmid, RN) 0328 (Given - Provider: Ivy Schmid, RN)0736 (Given - Provider: Juanis Contreras RN)1137 (Given - Provider: Juanis Contreras RN)1536 (Given - Provider: Juanis Contreras RN) [...] EVERY 6 HOURS PRN, Nausea, Starting on Mariajose 04/11/24 at 0954, 2nd line, Administer via antecubital vein or higher. sodium chloride flush 0.9 % injection 10 mL 10 mL, IntraVENous, PRN, Starting on Mariajose 04/11/24 at 0143, Until Discontinued, Line Care, After [...] 04/11/24 at 0143, Until Discontinued, Nausea, Vomiting Or [...] and content) DATE CREATED AUTHOR 07/28/2023 Virgie Escudero [facility] DATE CREATED AUTHOR AUTHOR'S ORGANIZ ATION 01/04/2024 [facility] DATE CREATED AUTHOR AUTHOR'S ORGANIZ ATION 01/20/2024 [facility] DATE CREATED AUTHOR AUTHOR'S ORGANIZ ATION 01/21/2024 [facility] DATE CREATED AUTHOR AUTHOR'S ORGANIZ ATION 02/14/2024 [facility] DATE CREATED AUTHOR AUTHOR'S ORGANIZ ATION 07/22/2024 Virgie Rowell [facility] DATE CREATED AUTHOR AUTHOR'S ORGANIZ ATION 09/18/2024 [facility] DATE CREATED AUTHOR AUTHOR'S ORGANIZ ATION 11/13/2024 [facility] DATE CREATED AUTHOR AUTHOR'S ORGANIZ ATION 11/17/2024 [facility] Ordered Prescriptions (unrec ognized section and content) [...] BE BASED ON THE PRIMARY CLINICAL RECORDS. [employer] provides no warranty or guarantee of the accuracy or completeness of information in this document.
--- NOTE | 2024-11-23 20:17 | ED.ABDPAIN1 ---
HPI - Abdominal Pain General Chief Complaint: Abdominal Pain Stated Complaint: ABDOMINAL AND LOWER BACK PAIN, NAUSEA Time Seen by Provider: 11/23/24 20:10 Source: patient Mode of arrival: Wheelchair History of Present Illness HPI narrative: presents complaining of left lower quad/pelvis pain for the past 3 days. States she had a partial hysterectomy last year with removal of her uterus. She then describes several months later an abscess in her pelvic area that was removed. Denies urinary symptoms. States she took home test and it was positive. No fever Related Data Home Medications ?Medication ?Instructions ?Recorded ?Confirmed venlafaxine 75 mg capsule,extended 175 mg PO DAILY 08/28/24 11/23/24 release 24 hr aripiprazole 10 mg tablet 10 mg PO QPM 11/23/24 11/23/24 buspirone 10 mg tablet 10 mg PO BID 11/23/24 11/23/24 ondansetron 4 mg disintegrating 4 mg PO Q6H PRN nausea and vomiting 11/23/24 11/23/24 tablet trazodone 100 mg tablet 100 mg PO QPM 11/23/24 11/23/24 levofloxacin 500 mg tablet 500 mg PO DAILY 11/24/24 11/24/24 Previous Rx's ?Medication ?Instructions ?Recorded hydroxyzine HCl 50 mg tablet 50 mg PO TID PRN itching #10 tabs 11/01/24 Allergies Allergy/AdvReac Type Severity Reaction Status Date / Time chlorpheniramine (From Allergy Severe Swelling Verified 11/01/24 14:06 Triaminic Cold and Cough) of Lip/Tongue/Throat dextromethorphan (From Allergy Severe Swelling Verified 11/01/24 14:06 Triaminic Cold and Cough) of Lip/Tongue/Throat pseudoephedrine (From Allergy Severe Swelling Verified 11/01/24 14:06 Triaminic Cold and Cough) of Lip/Tongue/Throat Review of Systems ROS Status of ROS 10 or more systems reviewed and unremarkable except as noted in history and below [facility] Surgical History History of appendectomy ?Z90.49 - Acquired absence of other specified parts of digestive tract (ICD-10) History of removal of ovarian cyst ?Z98.890 - Other specified postprocedural states (ICD-10) ?Z87.42 - Personal history of other diseases of the female genital tract (ICD-10) History of hysterectomy ?Z90.710 - Acquired absence of both cervix and uterus (ICD-10) Social History Little interest or pleasure in doing things: not at all Feeling down, depressed, or hopeless: not at all Exam Constitutional Vital Signs, click to edit/add: Last Vital Signs Temp 98.1 F 11/23/24 19:59 Pulse 82 11/23/24 23:55 Resp 16 11/23/24 23:55 BP 92/49 11/23/24 23:55 Pulse Ox 100 11/23/24 23:55 O2 Del Method Room Air 11/23/24 21:00 Common normals: no apparent distress, average body habitus, oriented x3, no limitations, healthy appearing, alert and well nourished HENMT Common normals: head/scalp atraumatic Eye Common normals: PERRL, EOMs intact bilaterally and conjunctivae normal Respiratory Common normals: normal respiratory effort, no retractions, no use of accessory muscles and clear to auscultation bilaterally Cardio Common normals: regular rate, regular rhythm, S1 normal heart sound and S2 normal heart sound GI GI image (female):  1. tender Extremity Common normals: normal to inspection and full ROM Neuro Common normals: oriented x3, CN's II-XII intact bilaterally, moves all extremities, no focal motor deficits and no sensory deficits noted Psych Appearance: grossly normal Course Vital Signs Vital signs: Vital Signs Temperature 98.1 F 11/23/24 19:59 Pulse Rate 109 H 11/23/24 19:59 Respiratory Rate 18 11/23/24 19:59 Blood Pressure 130/80 11/23/24 19:59 Pulse Oximetry 99 11/23/24 19:59 Oxygen Delivery Method Room Air 11/23/24 19:59 Temperature 98.1 F 11/23/24 19:59 Pulse Rate 82 11/23/24 23:55 Respiratory Rate 16 11/23/24 23:55 Blood Pressure 92/49 11/23/24 23:55 Pulse Oximetry 100 11/23/24 23:55 Oxygen Delivery Method Room Air 11/23/24 21:00 MDM - Abdominal Pain MDM Narrative Medical decision making narrative: patient presents with LLQ pain. Thought she was . Urine preg neg. UA positive . CT abd/pelvis pending but patient did not want to wait for the results. Given dose of rocephin and discharged with a prescription for Levaquin Lab Data Labs: Lab Results 11/23/24 11/23/24 Range/Units 20:25 20:30 WBC 4.7 (4.0-11.0) 10^3/uL RBC 4.04 L (4.20-5.40) 10^6/uL Hgb 11.9 L (12.0-16.0) g/dL Hct 34.9 L (36.0-48.0) % MCV 86.4 (81.0-99.0) fL MCH 29.5 (26.7-34.0) pg MCHC 34.1 (29.9-35.2) g/dL RDW 13.1 (11.0-15.0) % Plt Count 230 (150-450) 10^3/uL MPV 9.3 L (9.5-13.5) fL Neut % (Auto) 48.0 (43.0-75.0) % Lymph % (Auto) 42.5 (20.5-60.0) % [place] % (Auto) 8.9 (1.7-12.0) % Eos % (Auto) 0.0 L (0.9-7.0) % Baso % (Auto) 0.4 (0.2-2.0) % Neut # (Auto) 2.3 (1.4-6.5) 10^3/uL Lymph # (Auto) 2.0 (1.2-3.8) 10^3/uL [place] # (Auto) 0.4 (0.3-0.8) 10^3/uL Eos # (Auto) 0.0 (0.0-0.7) 10^3/uL Baso # (Auto) 0.0 (0.0-0.1) 10^3/uL Abs Immat Gran (auto) 0.01 (0.00-0.03) 10^3/uL Imm/Tot Granulo (auto) 0.2 (0.0-0.5) % Sodium 144 (136-145) mmol/L Potassium 3.7 (3.5-5.1) mmol/L Chloride 105 (98-107) mmol/L Carbon Dioxide 30.5 (21.0-32.0) mmol/L Anion Gap 12.2 BUN 12.0 (7.0-18.0) mg/dL Creatinine 0.66 (0.55-1.02) mg/dL Est GFR ( Amer) >60 (>=60 mL/min/1.73m^2) Est GFR (Non-Af Amer) >60 (>=60 mL/min/1.73m^2) BUN/Creatinine Ratio 18.2 Glucose 60 L (74-106) mg/dL Lactate 0.9 (0.4-2.0) mmol/L Calcium 8.7 (8.5-10.1) mg/dL Total Bilirubin 0.2 (0.2-1.0) mg/dL AST 20 (15-37) U/L ALT 36 (14-59) U/L Alkaline Phosphatase 87 (46-116) U/L Total Protein 7.4 (6.4-8.2) g/dL Albumin 3.6 (3.4-5.0) g/dL Globulin 3.8 g/dL Albumin/Globulin Ratio 0.9 Lipase 23.0 (16.0-77.0) U/L Urine Color Yellow (YELLOW) Urine Clarity Sl cloudy (CLEAR) Urine pH 7.5 (5.0-9.0) Ur Specific [place] 1.020 (1.005-1.025) Urine Protein Trace (NEG/TRACE) mg/dL Urine Glucose (UA) Negative (NEGATIVE) mg/dL Urine Ketones Trace A (NEGATIVE) mg/dL Urine Occult Blood Negative (NEGATIVE) Urine Nitrite Negative (NEGATIVE) Urine Bilirubin Negative (NEGATIVE) Urine Urobilinogen 1.0 (0.2-1.0) EU/dL Ur Leukocyte Esterase Negative (NEGATIVE) Urine RBC None seen (0-2) #/HPF Urine WBC 2-5 A (NONE SEEN) #/HPF Ur Squamous Epith Cells Moderate A (NONE/RARE) #/LPF Urine Crystals None seen (None Seen) #/HPF Amorphous Sediment Many Urine Bacteria Moderate A (NONE SEEN) #/HPF Urine Casts None seen (NONE SEEN) #/LPF Urine Mucus Moderate A (NONE SEEN) Ur Culture Indicated? [place] [place] HCG, Qual Negative (NEGATIVE) Discharge Plan Discharge Stand Alone Forms: Portal Instructions Chief Complaint: Abdominal Pain Clinical Impression: Lower abdominal pain, UTI (urinary tract infection) Patient Disposition: Left Against Medical Advice Mode of Transportation: Private Vehicle Prescriptions / Home Meds: No Action hydroxyzine HCl 50 mg tablet 50 mg PO TID PRN (Reason: itching) Qty: 10 0RF aripiprazole 10 mg tablet 10 mg PO QPM buspirone 10 mg tablet 10 mg PO BID ondansetron 4 mg tablet,disintegrating 4 mg PO Q6H PRN (Reason: nausea and vomiting) trazodone 100 mg tablet 100 mg PO QPM levofloxacin 500 mg tablet 500 mg PO DAILY Patient Comments: Started on 11/24/24 venlafaxine 75 mg capsule,extended release 24hr 175 mg PO DAILY Print Language: Maltese Referrals: Physician,Non-Staff, [Primary Care Provider] - 1 week Discharge Date/Time: 11/24/24 01:21
[2024-11-23 20:39] LABS: Basophils Percent Auto 0.4 % (0.2-2.0); Hematocrit 34.9 % (36.0-48.0); Hemoglobin 11.9 g/dL (12.0-16.0); Immature Granulocytes Abs Auto 0.01 10^3/uL (0.00-0.03); Immature Granulocytes Pct Auto 0.2 % (0.0-0.5); Lymphocytes Percent Auto 42.5 % (20.5-60.0); Mean Corpuscular HGB Conc 34.1 g/dL (29.9-35.2); Mean Corpuscular Hemoglobin 29.5 pg (26.7-34.0); Mean Corpuscular Volume 86.4 fL (81.0-99.0); Mean Platelet Volume 9.3 fL (9.5-13.5); Monocytes Absolute Auto 0.4 10^3/uL (0.3-0.8); Monocytes Percent Auto 8.9 % (1.7-12.0); Neutrophils Absolute Auto 2.3 10^3/uL (1.4-6.5); Platelet Count 230 10^3/uL (150-450); Red Blood Count 4.04 10^6/uL (4.20-5.40); Red Cell Distribution Width 13.1 % (11.0-15.0); White Blood Count 4.7 10^3/uL (4.0-11.0)
[2024-11-23 20:42] LABS: Bilirubin Urine NEGATIVE (NEGATIVE); Blood Urine NEGATIVE (NEGATIVE); Clarity Urine SL CLOUDY (CLEAR); Color Urine YELLOW (YELLOW); Glucose Urine UA NEGATIVE (NEGATIVE); Ketones Urine TRACE mg/dL (NEGATIVE); Leukocyte Esterase Urine NEGATIVE (NEGATIVE); Nitrite Urine NEGATIVE (NEGATIVE); Protein Urine TRACE mg/dL (NEG/TRACE); pH Urine 7.5 (5.0-9.0)
[2024-11-23 20:43] LABS: HCG Qualitative Urine* NEGATIVE (NEGATIVE); Internal Control Within Normal Limits
[2024-11-23 20:46] LABS: Bacteria Urine MODERATE #/HPF (NONE SEEN); Mucus Urine MODERATE (NONE SEEN); RBC Urine NONE SEEN #/HPF (0-2)
[2024-11-23 20:47] LABS: Amorphous Sediment Urine MANY; Cast Seen? NONE SEEN #/LPF (NONE SEEN); Crystals Seen? None Seen #/HPF (None Seen); Squamous Epithelial Cell Urine MODERATE #/LPF (NONE/RARE); Urine Culture Indicated YES-FRMC
[2024-11-23] MEDS: ONDANSETRON PF 4 MG/2 ML VIAL IV (20:52)
[2024-11-23] MEDS: MORPHINE SULFATE 2 MG/ML SYRINGE IV (20:52)
[2024-11-23] MEDS: 0.9 % SODIUM CHLORIDE 1,000 ML 999 ML IV (20:52)
[2024-11-23 20:53] LABS: Alanine Aminotransferase 36 U/L (14-59); Albumin Globulin Ratio 0.9; Albumin Level 3.6 g/dL (3.4-5.0); Alkaline Phosphatase 87 U/L (46-116); Anion Gap 12.2; Aspartate Amino Transferase 20 U/L (15-37); BUN Creatinine Ratio 18.2; Bilirubin Total 0.2 mg/dL (0.2-1.0); Calcium 8.7 mg/dL (8.5-10.1); Carbon Dioxide 30.5 mmol/L (21.0-32.0); Chloride 105 mmol/L (98-107); Estimated GFR (African America >60 (>=60 mL/min/1.73m^2); Estimated GFR (Non-African Ame >60 (>=60 mL/min/1.73m^2); Globulin 3.8 g/dL; Glucose 60 mg/dL (74-106); Potassium 3.7 mmol/L (3.5-5.1); Sodium 144 mmol/L (136-145); Total Protein 7.4 g/dL (6.4-8.2)
[2024-11-23 20:56] LABS: Lactate/Lactic Acid 0.9 mmol/L (0.4-2.0)
[2024-11-23 21:00] VITALS: BP 116/74; PULSE 90; O2SAT 97
[2024-11-23 23:55] VITALS: BP 92/49; PULSE 82; O2SAT 100
[2024-11-24] MEDS: CEFTRIAXONE 1,000 MG in 0.9 % SODIUM CHLORIDE 50 ML 100 MG IV (00:44)
== END 2024-11-24 01:21 | disposition left against medical advice (07) ==
PROVIDERS: Emergency Provider Internal Medicine
DX: N39.0 Urinary tract infection, site not specified (principal); R10.32 Left lower quadrant pain; Z90.711 Acquired absence of uterus with remaining cervical stump; Z90.49 Acquired absence of other specified parts of digestive tract; N83.201 Unspecified ovarian cyst, right side
CPT/HCPCS: 36415; 74177; 80053; 81001; 83605; 83690; 84703; 85025; 87086; 96365; 96375; 99284; J0696; J2270; J2405; Q9967

== ENCOUNTER 2024-12-21 17:01 | Emergency (ER) | payer OTHER, SELFPAY ==
[2024-12-21 17:07] VITALS: BP 110/61; PULSE 98; TEMP 37.3; O2SAT 98; BMI 24.1
--- OUTSIDE RECORDS SUMMARY | 2024-12-21 17:11 | XMS_ITS | CCD ---
Author Organization [facility] Care Team Providers Care Data Entry Email Processor Name Role Phone Denzel Thomas Unavailable Hernan Salas Unavailable [phone] NO FAMILY, PHYSICIAN Primary Care Provider Unava ilable Natadela, DO Juany Attending Provider Hero, DO Castillo Attending Provider [phone] NO FAMILY, PHYSICIAN Primary Care Provider Unava ilable Nataprawira, DO Juany Attending Provider MD Michael Gurrola Attending Provider MD Michael Gurrola Primary Care Provider MD Melinda Beltre P Attending Provider [phone] NO FAMILY, PHYSICIAN Primary Care Provider Unava ilable Viscgonzalez, DO Castillo Attending Provider [phone] Viscgonzalez, DO Jonathan Admit Provider MD Michael Gurrola Attending Provider [phone] NO FAMILY, PHYSICIAN Primary Care Provider Unava ilable MD Michael Gurrola Primary Care Provider MD Melinda Beltre P Attending Provider [phone] Natadela, DO Juany Attending Provider [phone] Visci, DO Jonathan Admit Provider Hero, DO Castillo Attending Provider Melida Mckenna APRN, CNP Primary Care Pro vider REINA, MELIDA A Primary Care Unavailable KISHA RANGEL Attending Unavailable [...] ble Luis Alfredo Mitchell Attending Unavaila ble Juan Santillan Admitting Unavailable Santillan, Juan Attending Unavailable Provider, None Primary Care Unavailable Provider, None Primary Care Unavailable ELA Friend Admitting Unavailable ELA Friend Attending Unavailable NO FAMILY, PHYSICIAN Primary Care Provider Unava ilable HATTIE Quiñones Emergency Provider [phone] YAIR DAVENPORT Referring Unavailable DIVINE COLEMAN Referring Unavailable [place], DIVINE Attending Unavailable REINA, MELIDA A Referring Unavailable REINA, MELIDA A Primary Care Unavailable REINA, MELIDA A Referring Unavailable REINA, MELIDA A Primary Care Unavailable Reina JEWEL STAKER - ROAD ROLLER ENGINEER, Melida A Primary Care Pro vider REINA MELIDA A Primary Care Unavailable CARISA LINN [...] Care Provi lala Michael Gurrola MD Unavailable PRUDENCE WONG Attending Unavailable REINA, MELIDA A Primary Care Unavailable REINA, MELIDA A Primary Care Unavailable TYRONE BENITO Attending Unavailable SAGE FUNES Attending Unavailable REINA, MELIDA A Primary Care Unavailable SHEREEN GIRALDO Attending Unavailable REINA, MELIDA A Primary Care Unavailable DAIGLE, JESS J Attending Unavailable REINA, MELIDA A Primary Care Unavailable REINA, MELIDA A Primary Care Unavailable ZAMZAM NICOLETTE Admitting Unavailable ZAMZAM NICOLETTE Attending Unavailable CRISTIANO SINGH Consulting Unavailable [place] BOWSER Consulting Unavailable MARY ELLEN SORIANO Consulting Unavailable RADHA LA, IMCKIE F Admitting Unavail able RADHA LA, MICKIE [...] Unavailable REINA, MELIDA A Primary Care Unavailable DAIGLE, JESS J Attending Unavailable REINA, MELIDA A Primary Care Unavailable TYRONE BENITO Attending Unavailable Reina JEWEL STAKER-ROAD ROLLER ENGINEER, Melida A Primary Care Provi lala No Pcp, No Pcp Primary Care Provider Unavailabl e NO PCP, NO PCP Primary Care Unavailable SHIRLEY BRICE Attending Unavailable MICHAEL GURROLA Attending Unavailable MICHAEL GURROLA Attending Unavailable MICHAEL GURROLA Attending Unavailable MICHAEL GURROLA Attending Unavailable MICHAEL GURROLA Attending Unavailable MICHAEL GURROLA Attending Unavailable NO FAMILY, PHYSICIAN Primary Care Provider Unava ilable Duane Simons DO Emergency Provider Kit Gutierrez MD Admit Provider Kit Gutierrez MD Attending Provider [phone] Ameya Salguero DO Emergency Provider Dashawn Moreno MD Admit Provider Dashawn Moreno MD Attending Provider Vik Gunter MD Attending Provider Matt, Kit Admitting Unavailab le Kit Gutierrez Attending Unavailab le NO FAMILY, PHYSICIAN Primary Care Unavailable NO FAMILY, PHYSICIAN Primary Care Unavailable Nikhil Quiñones Admitting Unavailable Nikhil Quiñones Attending Unavailable Vik Gunter Admitting Unavailable Vik Gunter Attending Unavailable Dashawn Moreno Admitting Unavailable Dashawn Moreno Attending Unavailable NO FAMILY, PHYSICIAN Primary Care Unavailable Matt, Kit Admitting Unavailab le Kit Gutierrez Attending Unavailab le NO FAMILY, PHYSICIAN Primary Care Unavailable Allergies Allergy Classification Reported Allergen(s) Allergy Type Date of Onset Reaction(s) Facility (20 sources) Chlorpheniramine Drug Allergy 06-21-19 23 Anaphylaxis, Other (See Comments), Other [facility] (20 sources) Dextromethorphan Drug Allergy 06-21-19 23 Other (See Comments), Other [facility] (20 sources) Pseudoephedrine Drug Allergy 06-21-19 23 Other (See Comments), Other [facility] (20 sources) Acetaminophen / Chlorpheniramine / Dextromethorphan Drug Allergy 11-19-19 17 Angioedema, Swelling, Anaphylaxis [facility] (1 source) Chlorpheniramine; Translations: [Triaminic Allergy] Drug Allergy [facility] Repository (1 source) chlorpheniramine/dextr omethorphan/PSE; Translations: [chlorpheniramine/dext romethorphan/PSE] Propensity to adverse reactions to drug (disorder) [facility] Repository (7 sources) Chlorpheniramine / Phenylpropanolamine Drug Allergy 01-08-20 24 Anaphylaxis [facility] (1 source) OTHER; Translations: [OTHER] Propensity to adverse reactions (disorder) 01-13-[address] [facility] Repository (3 sources) [id number]-GH-CSANA MINOPHEN; Translations: [[id number] AMINOPHEN] Propensity to adverse reactions to drug (disorder) 11-19-19 17 [facility] Repository NEGATED: Highlighted row has been ruled out! (7 sources) Other Propensity to adverse reactions 01-13-20 24 Other (See Comments) [facility] Medications Current Medications Medication Drug Class(es) [...] 4 tablets 10 tablet 04/02/2024 04/05/2024 Active [id number] 200 actuat albuterol 0.09 mg/actuat metered dose inhaler (1 source) beta2-Adrenergic Agonist Start: 08-15-2023 take 2 puff(s) by inhalation four times daily as needed for wheezing albuterol sulfate HFA (VENTOLIN HFA) 108 (90 Base) MCG/ACT inhaler Inhale 2 puffs into the lungs 4 times daily as needed for Wheezing or Shortness of Breath 54 g 1 08/15/2023 Active ARIPiprazole 10 mg oral tablet (2 sources) Atypical Antipsychotic Start: 11-16-2024 take 1 tablet [...] Active busPIRone hydrochloride 10 mg oral tablet (6 sources) Start: 11-16-2024 take 1 tablet by mouth twice daily Buspirone 10 mg tablet Active 10 MG PO Twice daily 60 November 16, 2024 12:00am Start: 11-10-2024 End: [...] 11-20-2023 IntraVENous, PRN, Opioid Reversal, Starting on Mon11/20/23 at 1611 PRN if respiratory rate is [...] 24 hr nicotine 0.875 mg/hr transdermal system (2 sources) Cholinergic Nicotinic Agonist Start: 11-16-2024 apply 1 dose transdermal route every twenty-four hours Nicotine 21 mg/24 hr Patch 24 Hour Active 21 MG TRANSDERML Daily November 16, 2024 12:00am nystatin [id number] unt/ml topical cream (6 sources) Polyene Antifungal [...] mg, IntraVENous, ONCE, 1 d ose, On Tu04/02/24 at 1015 Start: 03-17-2024 End: 04-09-2024 take [...] every morning 0 Active polyethylene glycol 3350 43432 mg powder for oral solution (1 source) [...] Active traZODone hydrochloride 100 mg oral tablet (6 sources) Serotonin Reuptake Inhibitor Start: 11-16-2024 take [...] as needed for Insomnia November 10, 2024 12:00am November 16, 2024 12:51pm 24 hr venlafaxine 150 [...] 12:51pm Start: 07-22-2024 take 1 capsule by [facility] every twenty-four hours Venlafaxine 75 mg capsule,extended release 24hr Active MG PO July 22, 2024 12:00am Start: 07-22-2024 End: 11-10-2024 take 1 capsule by mouth once daily in the morning Venlafaxine 75 mg capsule,extended release 24hr Discontinued 75 MG PO Every morning July 22, 2024 1:00am November 10, 2024 7:31am Start: 04-17-2024 take 1 capsule by mo uth once daily at breakfast venlafaxine (EFFEXOR XR) 75 MG extended release capsule Take 1 capsule by mouth daily (with breakfast) 30 capsule 3 04/17/2024 Active Start: 04-14-2024 take 75 mg by mouth once daily at breakfast 75 mg, Oral, DAILY WITH BREAKFAST, First dose on 04/14/24 at 0815, Until Discontinued, Do not crush or break. take 1 capsule by mo uth every twenty-four hours at mealtime venlafaxine XR [...] / HYDROcodone bitartrate 5 mg oral tablet (10 sources) Opioid Agonist Start: 01-08-2024 End: 07-22-2024 [...] only ferrous sulfate 325 mg oral tablet (9 sources) Start: 02-26-2023 End: 11-07-2024 take 1 tablet by mouth once daily Ferrous Sulfate 325 mg (65 mg iron) tablet Discontinued 325 MG PO Daily February 26, 2023 12:00am November 07, 2024 12:12am fluconazole 100 mg oral tablet (11 sources) Azole Antifungal Start: 01-12-2024 End: 07-22-2024 [...] ordered. hydrOXYzine pamoate 50 mg oral capsule (11 sources) Antihistamine Start: 11-10-2024 End: 11-14-2024 take 1 capsule by mouth every six hours as needed for anxiety Hydroxyzine Pamoate 50 mg Capsule Discontinued 50 MG PO Q6H as needed for Anxiety November 10, 2024 12:00am November 14, 2024 10:12pm Start: 11-01-2024 take 1 tablet by kirstel three times daily Hydroxyzine Hcl 50 mg [...] 1.25 mg LORazepam 0.5 mg oral tablet (17 sources) Benzodiazepine Start: 06-21-2022 End: 11-03-2022 take [...] PACU only metroNIDAZOLE 0.0075 mg/mg vaginal gel (20 sources) Nitroimidazole Antimicrobial Start: 02-08-2024 End: 04-30-2024 [...] tablet Discontinued 500 MG PO Twice daily 14 January 12, 2024 12:00am November 07, 2024 12:12am [...] 4 mg, IntraVENous, ONCE, 1 dose, On 04/10/24 at 2000, If oral and IV narcotics ordered, use oral first and only use IV if oral is ineffective or cannot take oral. Do Not give oral and IV within 1 hour of each other unless specifically ordered. Start: 04-02-2024 End: 04-02-2024 4 mg, IntraVENous, ONCE, 1 d ose, On 04/02/24 at 1230 Start: 02-03-2024 End: 02-03-2024 take [...] osmotic 24 hr extended release oral tablet (17 sources) Dihydropyridine Calcium Channel Andrew Start: 11-14-2021 [...] sodium chloride 0.9 % 50 mL IVPB (Bwbp1Upf) (2 sources) Start: 04-11-2024 End: 04-12-2024 3,375 mg, IntraVENous, EVERY 8 HOURS, 4 doses, First dose on Mariajose 04/11/24 at 0400, Last dose on Mon04/12/24 at 0400, Antimicrobial Indications: Intra-Abdominal Infection Start: 04-10-2024 End: 04-10-2024 3,375 mg, IntraVENous, ONCE, 1 dose, On Mon04/10/24 at 2015, Antimicrobial Indications: Intra-Abdominal Infection microencapsulated [...] 40 mEq predniSONE 20 mg oral tablet (6 sources) Start: 07-22-2024 End: 11-07-2024 take 2 tablets by mouth once daily Prednisone 20 mg tablet Discontinued 40 MG PO Daily 6 July 22, 2024 1:00am November 07, 2024 12:12am Start: 08-15-2023 End: 08-20-2023 take 2 tablets by mouth once daily predniSONE (DELTASONE) 20 MG tablet Take 2 tablets by mouth daily for 5 days 10 tablet 0 08/15/2023 08/20/2023 Active Ubgyooyo-Jxw-Xu-Fa () 1 mg Tablet (17 sources) Start: 11-03-2022 End: 01-26-2023 take 1 tablet by mouth once daily Vrvuukzc-Vec-Qg-Fa () 1 mg Tablet Discontinued 1 TAB PO Daily November 02, 2022 11:00pm January 26, 2023 9:37pm Start: 11-03-2022 End: 01-26-2023 take 1 tablet by mouth once daily Poqxhcmb-Pjz-Rn-Fa () 1 mg Tablet Discontinued 1 TAB PO Daily November 03, 2022 12:00am January 26, 2023 10:37pm Start: 11-03-2022 take 1 tablet by kristel th once daily Earpnuyj-Equ-Lh-Fa () 1 mg Tablet Active 1 TAB [...] only promethazine hydrochloride 25 mg oral tablet (17 sources) Phenothiazine Start: 11-24-2018 End: 10-16-2020 take [...] Chronic Attention-deficit, conduct, and disruptive behavior disorders (6 sources) Attention deficit hyperactivity disorder; Translations: [Attention-deficit [...] cycle] Onset: 4 11-20-2023 Chronic Mood disorders (15 sources) Severe recurrent major depression without psychotic features; Translations: [Major depressive disorder, recurrent severe without psychotic features] Onset: 5 11-06-2024 Chronic Mood disorders (7 sources) Mood disorders; Translations: [Depression, unspecified] Onset: 5 01-05-2022 Nausea and vomiting (19 sources) Nausea with vomiting, unspecified; Translations: [Nausea [...] 11-20-2023 Episodic Other and delivery including normal (11 sources) care status; Translations: [Encounter for routine [...] unspecified, without complications] Chronic Residual codes; unclassified (17 sources) Gestation period, 34 weeks; Translations: [34 weeks gestation of ] 11-26-2020 Episodic Comment on above: Problem List clean-u p per request of Phys. EHR Cmte Residual codes; unclassified (17 sources) Tobacco use and exposure - finding; Translations: [Tobacco use] 08-21-2019 Episodic Comment on above: Problem List clean-u p per request of Phys. EHR Cmte Residual codes; unclassified (1 source) Pain, unspecified; Translations: [Pain, unspecified] Onset: 4 Episodic Residual codes; unclassified (1 source) Other problems related to lifestyle; Translations: [Other problems related to lifestyle] Onset: 5 Episodic Septicemia (except in labor) (2 sources) Sepsis, unspecified organism; Translations: [Sepsis, unspecified organism] Onset: 4 Episodic Spondylosis; intervertebral disc disorders; other back problems (1 source) Backache Onset: 5 Episodic Substance-related disorders (16 sources) History of clinical finding in subject; Translations: [History of marijuana use] Onset: 0 07-19-2023 Chronic Suicide and intentional self-inflicted injury (13 sources) Suicidal thoughts; Translations: [Suicidal ideations] Onset: [...] [Abscess of female pelvis] Onset: 01-13-2024 Episodic Mycoses (6 sources) Candidiasis of mouth; Translations: [Candidal stomatitis] Onset: 07-20-2022 07-20-2022 Episodic Other aftercare (1 source) Device in [...] Reference Range Facility ECG 12 lead ECGon 12-04-2024 ECG 12 lead ECG [facility] Main [place] [id number] Electrocardiograph Report Signed Patient: Barbra Claros MR#: [id number] : 1995 Acct:[id number] Age/Sex: 29 / F ADM Date: 12/03/24 Loc: Room: [address] [place] [address] Type: ADM IN Attending Dr: Kit Gutierrez MD Ordering Provider: Kit Gutierrez MD Date of Service: 12/04/24 ECG/ECG 12 lead ECG: Use of antipsychotic medications. Copies to: Test Reason : Blood Pressure : */* mmHG Vent. Rate : 73 BPM Atrial Rate : 73 BPM P-R Int : 140 ms QRS Dur : 98 ms QT Int : 396 ms P-R-T Axes : 46 46 65 degrees QTcB Int : 436 ms Normal sinus rhythm Normal ECG When compared with ECG of 15-Nov-2024 14:20, No significant change was found Confirmed by PAUL JUAREZ MD ([facility]) on 12/04/2024 9:51:36 AM Referred By: Electronically Signed By: PAUL JUAREZ MD Transcribed By: MUS Signed By Paul Juarez MD 0 12/04/24 0951 Normal [facility] Complete Blood Count Auto Di ffon 12-03-2024 Basophils (Bld) [#/Vol] 0.0 10*3/uL Normal 0.0-0.2 [facility] Comment on above: Result Comment: PERF ORMED BY: [place] [address] PATHOLOGIST INSTALLATION DRAFTER AMBER HENNING M.D. Performed By: #### C UU #### [address] Basophils/100 WBC (Bld) 0.3 % Normal . [facility] Comment on above: Performed By: #### C UU #### [address] Eosinophils (Bld) [#/Vol] 0.0 10*3/uL Normal 0.0-0.45 [facility] Comment on above: Performed By: #### C UU #### [address] Eosinophils/100 WBC (Bld) 0.1 % Normal . [facility] Comment on above: Performed By: #### C UU #### [address] Erythrocyte distribution width (RBC) [Ratio] 14.3 % Normal 11.9-15.3 [facility] Comment on above: Performed By: #### C UU #### [address] Hematocrit (Bld) [Volume fraction] 35.9 % Normal 34.0-46.4 [facility] Comment on above: Performed By: #### C UU #### [address] Hemoglobin (Bld) [Mass/Vol] 12.1 g/dL Normal 11.8-15.4 [facility] Comment on above: Performed By: #### C UU #### [address] Lymphocytes (Bld) [#/Vol] 2.0 10*3/uL Normal 1.00-4.8 [facility] Comment on above: Performed By: #### C UU #### [address] Lymphocytes/100 WBC (Bld) 33.7 % Normal . [facility] Comment on above: Performed By: #### C UU #### [address] MCH (RBC) [Entitic mass] 29.3 pg Normal 24.7-34.3 [facility] Comment on above: Performed By: #### C UU #### [address] MCV (RBC) [Entitic vol] 86.6 fL Normal 80-100 [facility] Comment on above: Performed By: #### C UU #### [address] Mean Corpuscular HGB Conc 33.9 g/dL Normal 32.0-35.0 [facility] Comment on above: Performed By: #### C UU #### [facility] [address] [place] [address] [place] Monocytes (Bld) [#/Vol] 0.5 10*3/uL Normal 0.0-0.8 [facility] Comment on above: Performed By: #### C UU #### [facility] [address] [place] [address] [place] Monocytes/100 WBC (Bld) 17.21 % Normal 0.00-20.00 [facility] Comment on above: Performed By: #### C UU #### [facility] [address] [place] [address] [place] Monocytes/100 WBC (Bld) 7.7 % Normal . [facility] Comment on above: Performed By: #### C UU #### [facility] [address] [place] [address] [place] Neutrophils (Bld) [#/Vol] 3.5 10*3/uL Normal 1.8-7.7 [facility] Comment on above: Performed By: #### C UU #### [place] [address] [place] Neutrophils/100 WBC (Bld) 58.2 % Normal . [facility] Comment on above: Performed By: #### C UU #### [place] [address] [place] NRBC% 0.1 /100{WBC} Normal 0-0.5 [facility] Comment on above: Performed By: #### C UU #### [place] [address] [place] Platelet mean volume (Bld) [Entitic vol] 7.2 fL Normal 6.3-10.7 [facility] Comment on above: Performed By: #### C UU #### [place] [address] [place] Platelets (Bld) [#/Vol] 296 10*3/uL Normal 150-450 [facility] Comment on above: Performed By: #### C UU #### [address] RBC (Bld) [#/Vol] 4.14 10*6/uL Normal 3.60-5.00 [facility] Comment on above: Performed By: #### C UU #### [address] WBC (Bld) [#/Vol] 5.9 10*3/uL Normal 3.8-11.6 [facility] Comment on above: Performed By: #### C UU #### [address] White Blood Count 5.9 [CFU]/mL Normal 3.8-11.6 [facility] Comment on above: Performed By: #### C UU #### [address] Comprehensive Metabolic Pane [facility] 12-03-2024 Albumin [Mass/Vol] 4.3 g/dL Normal 3.5-5.7 [facility] Comment on above: Performed By: #### C UU #### [address] Albumin/Globulin [Mass ratio] 1.4 {ratio} Normal [facility] Comment on above: Performed By: #### C UU #### [address] ALP [Catalytic activity/Vol] 55 U/L Normal 34-104 [facility] Comment on above: Performed By: #### C UU #### [address] ALT [Catalytic activity/Vol] 19 U/L Normal 7-52 [facility] Comment on above: Performed By: #### C UU #### [address] Anion gap [Moles/Vol] 6.8 mmol/L Normal 6.0-15.0 [facility] Comment on above: Performed By: #### C UU #### [address] AST [Catalytic activity/Vol] 19 U/L Normal 13-39 [facility] Comment on above: Performed By: #### C UU #### [address] Bilirubin [Mass/Vol] 0.3 mg/dL Normal 0.3-1.0 [facility] Comment on above: Performed By: #### C UU #### [address] Calcium [Mass/Vol] 9.2 mg/dL Normal 8.6-10.3 [facility] Comment on above: Performed By: #### C UU #### [address] Chloride [Moles/Vol] 104 mmol/L Normal 98-107 [facility] Comment on above: Performed By: #### C UU #### [address] CO2 [Moles/Vol] 30.3 mmol/L Normal 21.0-31.0 [facility] Comment on above: Performed By: #### C UU #### [address] Creatinine [Mass/Vol] 0.82 mg/dL Normal 0.60-1.20 [facility] Comment on above: Performed By: #### C UU #### [address] Creatinine Clr Calc Pharmacy 95.09 Normal [facility] Comment on above: Result Comment: PERF ORMED BY: [place] [address] PATHOLOGIST INSTALLATION DRAFTER AMBER HENNING M.D. Performed By: #### C UU #### [address] GFR/1.73 sq M.predicted MDRD (S/P/Bld) [Vol rate/Area] mL/min/{1.73_m2} Normal [facility] Comment on above: Performed By: #### C UU #### [address] Globulin (S) [Mass/Vol] 3.0 g/dL Normal [facility] Comment on above: Performed By: #### C UU #### [address] Glucose [Mass/Vol] 82 mg/dL Normal 70-100 [facility] Comment on above: Result Comment: [place] Glucose Reference Range is dependent on time and content of last meal. Glucose of more than 200 mg/dL in a nonstressed, ambulatory subject supports the diagnosis of Diabetes Mellitus. ADA recommended reference range Performed By: #### C UU #### [address] Potassium [Moles/Vol] 4.1 mmol/L Normal 3.5-5.1 [facility] Comment on above: Performed By: #### C UU #### [address] Protein [Mass/Vol] 7.3 g/dL Normal 6.4-8.9 [facility] Comment on above: Performed By: #### C UU #### [address] Sodium [Moles/Vol] 137 mmol/L Normal 136-145 [facility] Comment on above: Performed By: #### C UU #### [address] Urea nitrogen [Mass/Vol] 11 mg/dL Normal 7-25 [facility] Comment on above: Performed By: #### C UU #### [place] [address] [place] Drug Screen,Urineon 12-04-19 25 Amphetamine Screen,Urine Negative Normal Negative [facility] Comment on above: Performed By: #### U RDS, UA, UHCG #### [address] Barbiturate Screen,Urine Negative Normal Negative [facility] Comment on above: Performed By: #### U RDS, UA, UHCG #### [address] Benzodiazepines Screen,Urine Negative Normal Negative [facility] Comment on above: Performed By: #### U RDS, UA, UHCG #### [address] Cannabinoid Screen,Urine Positive Normal Negative [facility] Comment on above: Result Comment: Thes e are unconfirmed results and should not be used for legal purposes. Drug Cut-Off Concentration: AMPH 1000 ng/mL FIONA 200 ng/mL KIMMY 200 ng/mL COCM 300 ng/mL OP 300 ng/mL PCP 25 ng/mL THC 20 ng/mL PERFORMED BY: [place] [address] PATHOLOGIST INSTALLATION DRAFTER AMBER HENNING M.D. Performed By: #### U RDS, UA, UHCG #### [address] Cocaine Screen,Urine Negative Normal Negative [facility] Comment on above: Performed By: #### U RDS, UA, UHCG #### [address] Opiate Screen,Urine Negative Normal Negative [facility] Comment on above: Performed By: #### U RDS, UA, UHCG #### [address] Phencyclidine Screen,Urine Negative Normal Negative [facility] Comment on above: Performed By: #### U RDS, UA, UHCG #### [address] Ethyl Alcohol Profileon 11-17 Ethanol [Mass/Vol] mg/dL Normal [facility] Comment on above: Performed By: #### C UU #### [address] Percent Ethanol Not performed Normal [facility] Comment on above: Result Comment: PERF ORMED BY: [place] [address] PATHOLOGIST INSTALLATION DRAFTER AMBER HENNING M.D. Performed By: #### C UU #### [place] [id number] [place] HCG,Urineon 12-03-2024 Beta HCG ( test) Ql (U) Negative Normal [facility] Comment on above: Order Comment: Name Collection Type:: Clean-Voided Midstream Result Comment: PERF ORMED BY: [place] [address] PATHOLOGIST INSTALLATION DRAFTER AMBER HENNING M.D. Performed By: #### U RDS, UA, CG #### [place] [id number] [facility] Lipid Panelon 12-03-2024 Cholesterol [Mass/Vol] 178 mg/dL Normal 140-200 [facility] Comment on above: Order Comment: Name Collection Type:: Clean-Voided Midstream Result Comment: Chol less than 200 mg/dl low risk Chol 201-239 mg/dl borderline risk Chol 240 mg/dl and greater high risk Performed By: #### U HCG, ADDONUAPLUS #### [address] Cholesterol in HDL [Mass/Vol] 51 mg/dL Normal 23-92 [facility] Comment on above: Order Comment: Name Collection Type:: Clean-Voided Midstream Result Comment: HDL CHOL ATP-III CLASSIFICATION Cardiovascular Risk HDL > or equal to 60 mg/dL LOW HDL < 40 mg/dL HIGH Performed By: #### U HCG, ADDONUAPLUS #### [place] [id number] [facility] [place] Cholesterol.total/Cho lesterol in HDL [Mass ratio] 3.5 {ratio} Normal <5.0 [facility] Comment on above: Order Comment: Name Collection Type:: Clean-Voided Midstream Performed By: #### U HCG, ADDONUAPLUS #### [place] [id number] [place] LDL Cholesterol,Calculate d 109 mg/dL High 0-100 [facility] Comment on above: Order Comment: Name Collection Type:: Clean-Voided Midstream Result Comment: LDL ATP III CLASSIFICATION LDL less than 100 mg/dL Optimal LDL 100-129 mg/dL Near or above optimal LDL 130-159 mg/dL Borderline high LDL 160-189 mg/dL High LDL greater than 189 mg/dL Very high Performed By: #### U HCG, ADDONUAPLUS #### [facility] [address] Triglyceride w/Reflex 90 mg/dL Normal 0-149 [facility] Comment on above: Order Comment: Name Collection Type:: Clean-Voided Midstream Result Comment: TRIG ATP III CLASSIFICATION TRIG less than 150 mg/dL Normal TRIG 150-199 mg/dL Borderline high TRIG 200-500 mg/dL High TRIG greater than 500 mg/dL Very high Standard traceable to the Center for Disease Conrtrol and Prevention (CDC) test method. Performed By: #### U HCG, ADDONUAPLUS #### [address] VLDL CHOLESTEROL 18 mg/dL Normal [facility] Comment on above: Order Comment: Name Collection Type:: Clean-Voided Midstream Performed By: #### U HCG, ADDONUAPLUS #### [place] [address] [place] Thyroid Stim Hormone w/Rflxo n 12-03-2024 Thyroid Stim Hormone w/Rflx 3.77 u[iU]/mL Normal 0.45-5.33 [facility] Comment on above: Order Comment: Name Collection Type:: Clean-Voided Midstream Performed By: #### U HCG, ADDONUAPLUS #### [facility] [address] [place] [id number] [place] Urinalysison 12-03-2024 Appearance (U) Clear Normal Clear [facility] Comment on above: Order Comment: Name Collection Type:: Clean-Voided Midstream Performed By: #### U RDS, UA, UHCG #### [address] Bilirubin,Urine Negative Normal Negative [facility] Comment on above: Order Comment: Name Collection Type:: Clean-Voided Midstream Performed By: #### U RDS, UA, UHCG #### [facility] 1[address] [place] [address] [place] Color (U) Colorless Normal Yellow [facility] Comment on above: Order Comment: Name Collection Type:: Clean-Voided Midstream Performed By: #### U RDS, UA, UHCG #### [address] Glucose Ql (U) Normal Normal Normal [facility] Comment on above: Order Comment: Name Collection Type:: Clean-Voided Midstream Performed By: #### U RDS, UA, UHCG #### [address] Ketones Ql (U) Negative Normal Negative [facility] Comment on above: Order Comment: Name Collection Type:: Clean-Voided Midstream Performed By: #### U RDS, UA, UHCG #### [address] Leukocyte esterase Test strip Ql (U) Negative Normal Negative [facility] Comment on above: Order Comment: Name Collection Type:: Clean-Voided Midstream Performed By: #### U RDS, UA, UHCG #### [place] [address] [place] Nitrite,Urine Negative Normal Negative [facility] Comment on above: Order Comment: Name Collection Type:: Clean-Voided Midstream Performed By: #### U RDS, UA, UHCG #### [place] [id number] [place] Occult Blood,Urine Negative Normal Negative [facility] Comment on above: Order Comment: Name Collection Type:: Clean-Voided Midstream Performed By: #### U RDS, UA, UHCG #### [place] [id number] [place] pH (U) 7.5 [pH] Normal 5.0-9.0 [facility] Comment on above: Order Comment: Name Collection Type:: Clean-Voided Midstream Performed By: #### U RDS, UA, UHCG #### [place] [id number] [facility] Protein,Urine Negative Normal Negative [facility] Comment on above: Order Comment: Name Collection Type:: Clean-Voided Midstream Performed By: #### U RDS, UA, UHCG #### [place] [id number] [facility] [place] [place],Urine 1.006 Normal 1.001-1.030 [facility] Comment on above: Order Comment: Name Collection Type:: Clean-Voided Midstream Performed By: #### U RDS, UA, UHCG #### [place] [id number] [facility] Urobilinogen,Urine Normal Normal Normal [facility] Comment on above: Order Comment: Name Collection Type:: Clean-Voided Midstream Performed By: #### U RDS, UA, UHCG #### [place] [id number] [facility] [place] Vitamin D 25 Hydroxy Totalon 12-03-2024 Vitamin D 25 Hydroxy Total 10.9 ng/mL Low 30-100 [facility] Comment on above: Order Comment: Name Collection Type:: Clean-Voided Midstream Result Comment: CEM MIN D STATUS 25(OH)VITAMIN D RANGE (ng/mL) Deficient <20 Insufficient 20 to <30 Sufficient 30 to 100 Reference: Malou MF,Roly NC, Kassidy SHAH, et al. Evaluation,treatment, and prevention of vitamin D deficiency; an Endocrine Society clinical practice guideline. JCEM. 2010; 96(7):1911-30. PERFORMED BY: [place] [address] PATHOLOGIST INSTALLATION DRAFTER AMBER HENNING M.D. Performed By: #### U HCG, ADDONUAPLUS #### [place] [id number] [facility] [place] Urine Cultureon 11-23-2024 Bacteria identified Cx Nom (U) 75,000 colonies/ml mixed bacterial skin contaminants 2 Days PERFORMED BY: [place] [address] PATHOLOGIST INSTALLATION DRAFTER AMBER HENNING M.D. Normal [facility] Comment on above: Performed By: #### C UU #### [address] ECG 12 lead ECGon 11-15-2024 ECG 12 lead ECG [facility] [place] [address] Electrocardiograph Report Signed Patient: Barbra Claros MR#: [id number] : 1995 Acct:[id number] Age/Sex: 29 / F ADM Date: 11/14/24 Loc: 1S Room: [address] [place] [address] Type: ADM IN Attending Dr: Dashawn Moreno [...] rhythm Normal ECG Confirmed by Rhoda Herring ([id number]) on 11/15/2024 4:36:41 PM Referred By: Electronically Signed By: Rhoda Herring Transcribed By: MUS Signed By Rhoda Herring MD 5 1636 Normal [facility] X-ray reportOrdered By: Jay Sunshine on 11-15-2024 Study report [facility] [place] [address] XRay Report Signed Patient: Barbra Claros MR#: [id number] : 1995 Acct:[id number] Age/Sex: 29 / F ADM Date: 5 Loc: 1S Room: [address] [place] [address] Type: ADM IN Attending Dr: Dashawn Moreno [...] Sunshine M.D. 11/15/2024 9:53 AM Dictation Location: RADIO-PC-16 Transcribed By: SEMAJ 11/15/24 0953 Dictated By: Julio Sunshine DO 11/15/2453 Signed By: 11/15/2453 [facility] XR hand RT 2Von 11-15-2024 XR hand RT 2V [facility] [place] [address] XRay Report Signed Patient: Barbra Claros MR#: [id number] : 1995 Acct:[id number] Age/Sex: 29 / F ADM Date: 11/14/24 Loc: Room: [address] [place] [address] Type: ADM IN Attending Dr: Dashawn Moreno [...] Sunshine M.D. 11/15/2024 9:53 AM Dictation Location: RADIO-PC-16 Transcribed By: SEMAJ 11/15/24 0953 Dictated By: Julio Sunshine DO 11/15/24 0953 Signed By: 11/15/24 0953 Normal [facility] Alanine aminotransferase [En zymatic activity/volume] in Serum or PlasmaOrdered By: Ameya Salguero on 11-14-2024 ALT [Catalytic activity/Vol] Alanine aminotransferase [Enzymatic activity/volume] in Serum or Plasma 7-52 [facility] Albumin [Mass/volume] in Ser um or Plasma by Bromocresol green (BCG) dye binding methoOrdered By: Ameya Salguero on 11-14-2024 Albumin BCG dye [Mass/Vol] Albumin [Mass/volume] in Serum or Plasma by Bromocresol green (BCG) dye binding metho 3.5-5.7 [facility] Alkaline phosphatase [Enzyma tic activity/volume] in Serum or PlasmaOrdered By: Ameya Salguero on 11-14-2024 ALP [Catalytic activity/Vol] Alkaline phosphatase [Enzymatic activity/volume] in Serum or Plasma 34-104 [facility] Amphetamine Screen Ql (U)Ord ered By: Ameya Salguero on 11-14-2024 Amphetamines Ql (U) Amphetamines screen Negativ e [facility] Appearance of UrineOrdered B y: Ameya Salguero on 11-14-2024 Appearance (U) Urine appearance Clear [facility] Aspartate aminotransferase [ Enzymatic activity/volume] in Serum or PlasmaOrdered By: Ameya Salguero on 11-14-2024 AST [Catalytic activity/Vol] Aspartate aminotransferase [Enzymatic activity/volume] in Serum or Plasma 13-39 [facility] Bacteria [Presence] in Urine by AutomatedOrdered By: Ameya Salguero on 11-14-2024 Bacteria Auto Ql (U) Bacteria [Presence] in Urine by Automated None Seen [facility] Barbiturates [Presence] in U rine by Screen methodOrdered By: Ameya Salguero on 11-14-2024 Barbiturates Screen Ql (U) Barbiturates [Presence] in Urine by Screen method Negative [facility] Basophils Auto (Bld) [#/Vol] Ordered By: Ameya Salguero on 11-14-2024 Basophils (Bld) [#/Vol] Automated basophil count 0.0-0.2 [facility] Basophils/100 WBC Auto (Bld) Ordered By: Ameya Salguero on 11-14-2024 Basophils/100 WBC (Bld) Automated basophil % . [facility] Benzodiazepines Screen Ql (U )Ordered By: Ameya Salguero on 11-14-2024 Benzodiazepines Ql (U) Benzodiazepines [Presence] in Urine by Screen method Negative [facility] Benzoylecgonine [Presence] i n Urine by Screen methodOrdered By: Ameya Salguero on 11-14-2024 Benzoylecgonine Screen Ql (U) Benzoylecgonine [Presence] in Urine by Screen method Negative [facility] Bilirubin Test strip Ql (U)O rdered By: Ameya Salguero on 11-14-2024 Bilirubin Ql (U) Bilirubin.total [Presence] in Urine by Test strip Negative [facility] Bilirubin.total [Mass/volume ] in Serum or PlasmaOrdered By: Ameya Salguero on 11-14-2024 Bilirubin [Mass/Vol] Bilirubin.total [Mass/volume] in Serum or Plasma Low 0.3-1.0 [facility] Calcium [Mass/volume] in Ser um or PlasmaOrdered By: Ameya Salguero 11-14-2024 Calcium [Mass/Vol] Calcium [Mass/volume ] in Serum or Plasma 8.6-10.3 [facility] Cannabinoids [Presence] in U rine by Screen methodOrdered By: Ameya Salguero on 11-14-2024 Cannabinoids Screen Ql (U) Cannabinoids [Presence] in Urine by Screen method High Negative [facility] Comment on above: These are unconfirme d results and should not be used for legal purposes. Drug Cut-Off Concentration: AMPH 1000 ng/mL FIONA 200 ng/mL KIMMY 200 ng/mL COCM 300 ng/mL OP 300 ng/mL PCP 25 ng/mL THC 20 ng/mL Carbon dioxide, total [Moles /volume] in Serum or PlasmaOrdered By: Ameya Salguero 11-14-2024 CO2 [Moles/Vol] Carbon dioxide, tota l [Moles/volume] in Serum or Plasma 21.0-31.0 [facility] Chloride [Moles/volume] in S karla or PlasmaOrdered By: Ameya Salguero 11-14-2024 Chloride [Moles/Vol] Chloride [Moles/vol ume] in Serum or Plasma 98-107 [facility] Cholesterol [Mass/volume] in Serum or PlasmaOrdered By: Ameya Salguero 11-14-2024 Cholesterol [Mass/Vol] Cholesterol [Mass/volume] in Serum or Plasma 140-200 [facility] Comment on above: Chol less than 200 m g/dl low riskChol 201-239 mg/dl borderline riskChol 240 mg/dl and greater high risk Cholesterol in HDL [Mass/vol ume] in Serum or PlasmaOrdered By: Ameya Salguero on 11-14-2024 Cholesterol in HDL [Mass/Vol] Serum or plasma high density lipoprotein (HDL) cholesterol measurement 23- [facility] Comment on above: HDL CHOL ATP-III CLA SSIFICATION Cardiovascular RiskHDL > or equal to 60 mg/dL LOWHDL < 40 mg/dL HIGH Cholesterol in LDL Calc [Mas s/Vol]Ordered By: Ameya Salguero on 11-14-2024 Cholesterol in LDL [Mass/Vol] Cholesterol in LDL [Mass/volume] in Serum or Plasma by calculation 0-100 [facility] Comment on above: LDL ATP III CLASSIFI CATIONLDL less than 100 mg/dL OptimalLDL 100-129 mg/dL Near or above optimalLDL 130-159 mg/dL Borderline highLDL 160-189 mg/dL HighLDL greater than 189 mg/dL Very high Cholesterol in VLDL Calc [Ma ss/Vol]Ordered By: Ameya Salguero on 11-14-2024 Cholesterol in VLDL [Mass/Vol] Cholesterol in VLDL [Mass/volume] in Serum or Plasma by calculation [facility] Color Auto (U)Ordered By: Ela Salguero on 11-14-2024 Color (U) Color of Urine by Auto Yellow Fi [facility] Complete Blood Count Auto Di ffon 11-14-2024 Basophils (Bld) [#/Vol] 0.0 10*3/uL Normal 0.0-0.2 [facility] Comment on above: Result Comment: PERF ORMED BY: [place] [address] PATHOLOGIST INSTALLATION DRAFTER AMBER HENNING M.D. Performed By: #### U HCG, ADDONUAPLUS #### [address] Basophils/100 WBC (Bld) 0.4 % Normal . [facility] Comment on above: Performed By: #### U HCG, ADDONUAPLUS #### [address] Eosinophils (Bld) [#/Vol] 0.0 10*3/uL Normal 0.0-0.45 [facility] Comment on above: Performed By: #### U HCG, ADDONUAPLUS #### [address] Eosinophils/100 WBC (Bld) 0.2 % Normal . [facility] Comment on above: Performed By: #### U HCG, ADDONUAPLUS #### [address] Erythrocyte distribution width (RBC) [Ratio] 14.5 % Normal 11.9-15.3 [facility] Comment on above: Performed By: #### U HCG, ADDONUAPLUS #### [address] Hematocrit (Bld) [Volume fraction] 35.9 % Normal 34.0-46.4 [facility] Comment on above: Performed By: #### U HCG, ADDONUAPLUS #### [address] Hemoglobin (Bld) [Mass/Vol] 12.2 g/dL Normal 11.8-15.4 [facility] Comment on above: Performed By: #### U HCG, ADDONUAPLUS #### [address] Lymphocytes (Bld) [#/Vol] 2.8 10*3/uL Normal 1.00-4.8 [facility] Comment on above: Performed By: #### U HCG, ADDONUAPLUS #### [place] [address] [place] Lymphocytes/100 WBC (Bld) 39.7 % Normal . [facility] Comment on above: Performed By: #### U HCG, ADDONUAPLUS #### [address] MCH (RBC) [Entitic mass] 29.2 pg Normal 24.7-34.3 [facility] Comment on above: Performed By: #### U HCG, ADDONUAPLUS #### [address] MCV (RBC) [Entitic vol] 86.2 fL Normal 80-100 [facility] Comment on above: Performed By: #### U HCG, ADDONUAPLUS #### [address] Mean Corpuscular HGB Conc 33.9 g/dL Normal 32.0-35.0 [facility] Comment on above: Performed By: #### U HCG, ADDONUAPLUS #### [place] [address] [place] Monocytes (Bld) [#/Vol] 0.5 10*3/uL Normal 0.0-0.8 [facility] Comment on above: Performed By: #### U HCG, ADDONUAPLUS #### [place] [address] [place] Monocytes/100 WBC (Bld) 18.51 % Normal 0.00-20.00 [facility] Comment on above: Performed By: #### U HCG, ADDONUAPLUS #### [place] [address] [place] Monocytes/100 WBC (Bld) 7.3 % Normal . [facility] Comment on above: Performed By: #### U HCG, ADDONUAPLUS #### [place] [address] [place] Neutrophils (Bld) [#/Vol] 3.7 10*3/uL Normal 1.8-7.7 [facility] Comment on above: Performed By: #### U HCG, ADDONUAPLUS #### [place] [address] [place] Neutrophils/100 WBC (Bld) 52.4 % Normal . [facility] Comment on above: Performed By: #### U HCG, ADDONUAPLUS #### [place] [address] [place] NRBC% 0.1 /100{WBC} Normal 0-0.5 [facility] Comment on above: Performed By: #### U HCG, ADDONUAPLUS #### [address] Platelet mean volume (Bld) [Entitic vol] 7.7 fL Normal 6.3-10.7 [facility] Comment on above: Performed By: #### U HCG, ADDONUAPLUS #### [address] Platelets (Bld) [#/Vol] 231 10*3/uL Normal 150-450 [facility] Comment on above: Performed By: #### U HCG, ADDONUAPLUS #### [address] RBC (Bld) [#/Vol] 4.17 10*6/uL Normal 3.60-5.00 [facility] Comment on above: Performed By: #### U HCG, ADDONUAPLUS #### [address] WBC (Bld) [#/Vol] 7.1 10*3/uL Normal 3.8-11.6 [facility] Comment on above: Performed By: #### U HCG, ADDONUAPLUS #### [address] Comprehensive Metabolic Pane blaine 11-14-2024 Albumin [Mass/Vol] 4.3 g/dL Normal 3.5-5.7 [facility] Comment on above: Performed By: #### U HCG, ADDONUAPLUS #### [address] Albumin/Globulin [Mass ratio] 1.5 {ratio} Normal [facility] Comment on above: Performed By: #### U HCG, ADDONUAPLUS #### [address] ALP [Catalytic activity/Vol] 54 U/L Normal 34-104 [facility] Comment on above: Performed By: #### U HCG, ADDONUAPLUS #### [address] [place] [address] [place] ALT [Catalytic activity/Vol] 36 U/L Normal 7-52 [facility] Comment on above: Performed By: #### U HCG, ADDONUAPLUS #### [address] Anion gap [Moles/Vol] 9.9 mmol/L Normal 6.0-15.0 [facility] Comment on above: Performed By: #### U HCG, ADDONUAPLUS #### [address] AST [Catalytic activity/Vol] 36 U/L Normal 13-39 [facility] Comment on above: Performed By: #### U HCG, ADDONUAPLUS #### [address] Bilirubin [Mass/Vol] 0.2 mg/dL Low 0.3-1.0 [facility] Comment on above: Performed By: #### U HCG, ADDONUAPLUS #### [place] [address] [place] Calcium [Mass/Vol] 8.9 mg/dL Normal 8.6-10.3 [facility] Comment on above: Performed By: #### U HCG, ADDONUAPLUS #### [place] [address] [place] Chloride [Moles/Vol] 105 mmol/L Normal 98-107 [facility] Comment on above: Performed By: #### U HCG, ADDONUAPLUS #### [place] [address] [place] CO2 [Moles/Vol] 27.8 mmol/L Normal 21.0-31.0 [facility] Comment on above: Performed By: #### U HCG, ADDONUAPLUS #### [address] Creatinine [Mass/Vol] 0.54 mg/dL Low 0.60-1.20 [facility] Comment on above: Performed By: #### U HCG, ADDONUAPLUS #### [address] Creatinine Clr Calc Pharmacy 142.40 Normal [facility] Comment on above: Result Comment: PERF ORMED BY: [place] [address] PATHOLOGIST INSTALLATION DRAFTER AMBER HENNING M.D. Performed By: #### U HCG, ADDONUAPLUS #### [place] [address] [place] GFR/1.73 sq M.predicted MDRD (S/P/Bld) [Vol rate/Area] mL/min/{1.73_m2} Normal [facility] Comment on above: Performed By: #### U HCG, ADDONUAPLUS #### [address] Globulin (S) [Mass/Vol] 2.8 g/dL Normal [facility] Comment on above: Performed By: #### U HCG, ADDONUAPLUS #### [address] Glucose [Mass/Vol] 94 mg/dL Normal 70-100 [facility] Comment on above: Result Comment: [place] Glucose Reference Range is dependent on time and content of last meal. Glucose of more than 200 mg/dL in a nonstressed, ambulatory subject supports the diagnosis of Diabetes Mellitus. ADA recommended reference range Performed By: #### U HCG, ADDONUAPLUS #### [address] Potassium [Moles/Vol] 3.7 mmol/L Normal 3.5-5.1 [facility] Comment on above: Performed By: #### U HCG, ADDONUAPLUS #### [address] Protein [Mass/Vol] 7.1 g/dL Normal 6.4-8.9 [facility] Comment on above: Performed By: #### U HCG, ADDONUAPLUS #### [address] Sodium [Moles/Vol] 139 mmol/L Normal 136-145 [facility] Comment on above: Performed By: #### U HCG, ADDONUAPLUS #### [address] Urea nitrogen [Mass/Vol] 10 mg/dL Normal 7-25 [facility] Comment on above: Performed By: #### U HCG, ADDONUAPLUS #### [place] [address] [place] Creatinine [Mass/volume] in Serum or PlasmaOrdered By: Ameya Salguero on 11-14-2024 Creatinine [Mass/Vol] Creatinine [Mass/v olume] in Serum or Plasma Low 0.60-1.20 [facility] Dipstick and Microscopicon 0 11-14-2024 Appearance (U) Clear Normal Clear [facility] Comment on above: Order Comment: Name Collection Type:: Clean-Voided Midstream Performed By: #### U HCG, URDS, ADDONUAPLUS #### [place] [address] [place] Bacteria,Urine None Seen Normal None Seen [facility] Comment on above: Order Comment: Name Collection Type:: Clean-Voided Midstream Performed By: #### U HCG, URDS, ADDONUAPLUS #### [place] [address] [place] Bilirubin,Urine Negative Normal Negative [facility] Comment on above: Order Comment: Name Collection Type:: Clean-Voided Midstream Performed By: #### U HCG, URDS, ADDONUAPLUS #### [place] [address] [place] Color (U) Yellow Normal Yellow [facility] Comment on above: Order Comment: Name Collection Type:: Clean-Voided Midstream Performed By: #### U HCG, URDS, ADDONUAPLUS #### [place] [address] [place] Glucose Ql (U) Normal Normal Normal [facility] Comment on above: Order Comment: Name Collection Type:: Clean-Voided Midstream Performed By: #### U HCG, URDS, ADDONUAPLUS #### [facility] [address] Hyaline Casts,Urine None Normal 0-8 [facility] Comment on above: Order Comment: Name Collection Type:: Clean-Voided Midstream Performed By: #### U HCG, URDS, ADDONUAPLUS #### [address] Ketones Ql (U) Negative Normal Negative [facility] Comment on above: Order Comment: Name Collection Type:: Clean-Voided Midstream Performed By: #### U HCG, URDS, ADDONUAPLUS #### [address] Leukocyte esterase Test strip Ql (U) Negative Normal Negative [facility] Comment on above: Order Comment: Name Collection Type:: Clean-Voided Midstream Performed By: #### U HCG, URDS, ADDONUAPLUS #### [address] Mucus,Urine 1+ Critically abnormal [facility] Comment on above: Order Comment: Name Collection Type:: Clean-Voided Midstream Performed By: #### U HCG, URDS, ADDONUAPLUS #### [address] Nitrite,Urine Negative Normal Negative [facility] Comment on above: Order Comment: Name Collection Type:: Clean-Voided Midstream Performed By: #### U HCG, URDS, ADDONUAPLUS #### [address] Occult Blood,Urine Negative Normal Negative [facility] Comment on above: Order Comment: Name Collection Type:: Clean-Voided Midstream Performed By: #### U HCG, URDS, ADDONUAPLUS #### [address] pH (U) 7.0 [pH] Normal 5.0-9.0 [facility] Comment on above: Order Comment: Name Collection Type:: Clean-Voided Midstream Performed By: #### U HCG, URDS, ADDONUAPLUS #### [address] Protein (U) [Mass/Vol] 20 mg/dL High Negative [facility] Comment on above: Order Comment: Name Collection Type:: Clean-Voided Midstream Performed By: #### U HCG, URDS, ADDONUAPLUS #### [address] RBC,Urine 3-4 Normal 0-4 [facility] Comment on above: Order Comment: Name Collection Type:: Clean-Voided Midstream Performed By: #### U HCG, URDS, ADDONUAPLUS #### [address] [place],Urine 1.031 High 1.001-1.030 [facility] Comment on above: Order Comment: Name Collection Type:: Clean-Voided Midstream Performed By: #### U HCG, URDS, ADDONUAPLUS #### [address] Squamous Epithelial Cell,Urine 5-9 High 0-2 [facility] Comment on above: Order Comment: Name Collection Type:: Clean-Voided Midstream Performed By: #### U HCG, URDS, ADDONUAPLUS #### [address] Urobilinogen,Urine 2 mg/dL High Normal [facility] Comment on above: Order Comment: Name Collection Type:: Clean-Voided Midstream Performed By: #### U HCG, URDS, ADDONUAPLUS #### [address] WBC,Urine 1-2 Normal 0-4 [facility] Comment on above: Order Comment: Name Collection Type:: Clean-Voided Midstream Performed By: #### U HCG, URDS, ADDONUAPLUS #### [address] Drug Screen,Urineon 11-15-19 25 Amphetamine Screen,Urine Negative Normal Negative [facility] Comment on above: Performed By: #### U HCG, URDS, ADDONUAPLUS #### [address] Barbiturate Screen,Urine Negative Normal Negative [facility] Comment on above: Performed By: #### U HCG, URDS, ADDONUAPLUS #### [address] Benzodiazepines Screen,Urine Negative Normal Negative [facility] Comment on above: Performed By: #### U HCG, URDS, ADDONUAPLUS #### [address] Cannabinoid Screen,Urine Positive High Negative [facility] Comment on above: Result Comment: Thes e are unconfirmed results and should not be used for legal purposes. Drug Cut-Off Concentration: AMPH 1000 ng/mL FIONA 200 ng/mL KIMMY 200 ng/mL COCM 300 ng/mL OP 300 ng/mL PCP 25 ng/mL THC 20 ng/mL PERFORMED BY: [place] [address] PATHOLOGIST INSTALLATION DRAFTER AMBER HENNING M.D. Performed By: #### U HCG, URDS, ADDONUAPLUS #### [address] Cocaine Screen,Urine Negative Normal Negative [facility] Comment on above: Performed By: #### U HCG, URDS, ADDONUAPLUS #### [address] Opiate Screen,Urine Negative Normal Negative [facility] Comment on above: Performed By: #### U HCG, URDS, ADDONUAPLUS #### [address] Phencyclidine Screen,Urine Negative Normal Negative [facility] Comment on above: Performed By: #### U HCG, URDS, ADDONUAPLUS #### [address] Eosinophils Auto (Bld) [#/Vo l]Ordered By: Ameya Salguero on 11-14-2024 Eosinophils (Bld) [#/Vol] Automated eosinophil count 0.0-0.45 [facility] Eosinophils/100 WBC Auto (Bl d)Ordered By: Ameya Salguero on 11-14-2024 Eosinophils/100 WBC (Bld) Automated eosinophil % . [facility] Epithelial cells.squamous [# /area] in Urine sediment by Automated countOrdered By: Ameya Salguero on 11-14-2024 Epithelial cells.squamous Auto (Urine sed) [#/Area] Epithelial cells.squamous [#/area] in Urine sediment by Automated count High 0-2 [facility] Erythrocyte distribution wid th Auto (RBC) [Ratio]Ordered By: Ameya Salguero on 11-14-2024 Erythrocyte distribution width (RBC) [Ratio] Erythrocyte distribution width [Ratio] by Automated count 11.9-15.3 [facility] Erythrocytes [#/area] in Uri ne sediment by Automated countOrdered By: Ameya Salguero on 11-14-2024 RBC Auto (Urine sed) [#/Area] Erythrocytes [#/area] in Urine sediment by Automated count 0-4 [facility] Ethanol [Mass/volume] in Ser um or PlasmaOrdered By: Ameya Salguero on 11-14-2024 Ethanol [Mass/Vol] Ethanol [Mass/volume ] in Serum or Plasma [facility] Comment on above: Test not performed Ethyl Alcohol Profileon 10-18 Ethanol [Mass/Vol] mg/dL Normal [facility] Comment on above: Performed By: #### U HCG, ADDONUAPLUS #### [facility] [address] Percent Ethanol Not performed Normal [facility] Comment on above: Result Comment: PERF ORMED BY: [place] [address] PATHOLOGIST INSTALLATION DRAFTER AMBER HENNING M.D. Performed By: #### U HCG, ADDONUAPLUS #### [facility] [address] [place] [address] [place] Globulin Calc (S) [Mass/Vol] Ordered By: Ameya Salguero on 11-14-2024 Globulin (S) [Mass/Vol] Serum globulin measurement by calculation (mass/volume) [facility] Glucose [Mass/volume] in Ser um or PlasmaOrdered By: Ameya Salguero on 11-14-2024 Glucose [Mass/Vol] Glucose [Mass/volume ] in Serum or Plasma 70-100 [facility] Comment on above: ADA recommended refe rence rangeRandom Glucose Reference Range is dependent on time and content of last meal. Glucose of more than 200 mg/dL in a nonstressed, ambulatory subject supports the diagnosis of Diabetes Mellitus. Glucose [Mass/volume] in Uri ne by Test stripOrdered By: Ameya Salguero on 11-14-2024 Glucose Test strip (U) [Mass/Vol] Glucose [Mass/volume] in Urine by Test strip Normal [facility] HCG ( test) IA.rapi d Ql (U)Ordered By: Ameya Salguero on 11-14-2024 HCG ( test) Ql (U) Urine human chorionic gonadotropin (hCG) detection by immunoassay [facility] HCG,Urineon 11-14-2024 Beta HCG ( test) Ql (U) Negative Normal [facility] Comment on above: Order Comment: Name Collection Type:: Clean-Voided Midstream Result Comment: PERF ORMED BY: [place] [address] PATHOLOGIST INSTALLATION DRAFTER AMBER HENNING M.D. Performed By: #### U HCG, URDS, ADDONUAPLUS #### [address] Hematocrit Auto (Bld) [Volum e fraction]Ordered By: Ameya Salguero on 11-14-2024 Hematocrit (Bld) [Volume fraction] Hematocrit [Volume Fraction] of Blood by Automated count 34.0-46.4 [facility] Hemoglobin Test strip Ql (U) Ordered By: Ameya Salguero on 11-14-2024 Hemoglobin Ql (U) Hemoglobin [Presence ] in Urine by Test strip Negative [facility] Hemoglobin [Mass/volume] in BloodOrdered By: Ameya Salguero on 11-14-2024 Hemoglobin (Bld) [Mass/Vol] Hemoglobin [Mass/volume] in Blood 11.8-15.4 [facility] Hyaline casts [#/area] in Ur ine sediment by Automated countOrdered By: Ameya Salguero on 11-14-2024 Hyaline casts Auto (Urine sed) [#/Area] Hyaline casts [#/area] in Urine sediment by Automated count 0-8 [facility] Ketones Test strip Ql (U)Ord ered By: Ameya Salguero on 11-14-2024 Ketones Ql (U) Ketones [Presence] i n Urine by Test strip Negative [facility] Leukocyte esterase [Presence ] in Urine by Test stripOrdered By: Ameya Salguero on 11-14-2024 Leukocyte esterase Test strip Ql (U) Leukocyte esterase [Presence] in Urine by Test strip Negative [facility] Leukocytes [#/area] in Urine sediment by Automated countOrdered By: Ameya Salguero on 11-14-2024 WBC Auto (Urine sed) [#/Area] Leukocytes [#/area] in Urine sediment by Automated count 0-4 [facility] Leukocytes [#/volume] correc arminda for nucleated erythrocytes in Blood by Automated counOrdered By: Ameya Salguero on 11-14-2024 WBC corrected for nucl RBC Auto (Bld) [#/Vol] Leukocytes [#/volume] corrected for nucleated erythrocytes in Blood by Automated coun 3.8-11.6 [facility] Lipid Panelon 11-14-2024 Cholesterol [Mass/Vol] 167 mg/dL Normal 140-200 [facility] Comment on above: Result Comment: Chol less than 200 mg/dl low risk Chol 201-239 mg/dl borderline risk Chol 240 mg/dl and greater high risk Performed By: #### U HCG, ADDONUAPLUS #### [facility] [address] [place] [address] [place] Cholesterol in HDL [Mass/Vol] 58 mg/dL Normal 23-92 [facility] Comment on above: Result Comment: HDL CHOL ATP-III CLASSIFICATION Cardiovascular Risk HDL > or equal to 60 mg/dL LOW HDL < 40 mg/dL HIGH Performed By: #### U HCG, ADDONUAPLUS #### [facility] [address] [place] [address] [place] Cholesterol.total/Cho lesterol in HDL [Mass ratio] 2.9 {ratio} Normal <5.0 [facility] Comment on above: Performed By: #### U HCG, ADDONUAPLUS #### [facility] [address] LDL Cholesterol,Calculate d 98 mg/dL Normal 0-100 [facility] Comment on above: Result Comment: LDL ATP III CLASSIFICATION LDL less than 100 mg/dL Optimal LDL 100-129 mg/dL Near or above optimal LDL 130-159 mg/dL Borderline high LDL 160-189 mg/dL High LDL greater than 189 mg/dL Very high Performed By: #### U HCG, ADDONUAPLUS #### [facility] [address] Triglyceride w/Reflex 56 mg/dL Normal 0-149 [facility] Comment on above: Result Comment: TRIG ATP III CLASSIFICATION TRIG less than 150 mg/dL Normal TRIG 150-199 mg/dL Borderline high TRIG 200-500 mg/dL High TRIG greater than 500 mg/dL Very high Standard traceable to the Center for Disease Conrtrol and Prevention (CDC) test method. Performed By: #### U HCG, ADDONUAPLUS #### [facility] [address] VLDL CHOLESTEROL 11 mg/dL Normal [facility] Comment on above: Performed By: #### U HCG, ADDONUAPLUS #### [address] Lymphocytes Auto (Bld) [#/Vo l]Ordered By: Ameya Salguero on 11-14-2024 Lymphocytes (Bld) [#/Vol] Lymphocytes [#/volume] in Blood by Automated count 1.00-4.8 [facility] Lymphocytes/100 WBC Auto (Bl d)Ordered By: Ameya Salguero on 11-14-2024 Lymphocytes/100 WBC (Bld) Lymphocytes/100 leukocytes in Blood by Automated count . [facility] MCH Auto (RBC) [Entitic mass ]Ordered By: Ameya Salguero on 11-14-2024 MCH (RBC) [Entitic mass] MCH [Entitic mass] by Automated count 24.7-34.3 [facility] MCHC Auto (RBC) [Mass/Vol]Or dered By: Ameya Salguero on 11-14-2024 MCHC (RBC) [Mass/Vol] MCHC [Mass/volume] by Automated count 32.0-35.0 [facility] MCV Auto (RBC) [Entitic vol] Ordered By: Ameya Salguero on 11-14-2024 MCV (RBC) [Entitic vol] MCV [Entitic volume] by Automated count 80-100 [facility] Monocyte distribution width [Entitic volume] in Blood by AutomatedOrdered By: Ameya Salguero on 11-14-2024 Monocyte distribution width Auto (Bld) [Entitic vol] Monocyte distribution width [Entitic volume] in Blood by Automated 0.00-20.00 [facility] Monocytes Auto (Bld) [#/Vol] Ordered By: Ameya Salguero on 11-14-2024 Monocytes (Bld) [#/Vol] Automated blood monocyte count 0.0-0.8 [facility] Monocytes/100 WBC Auto (Bld) Ordered By: Ameya Salguero on 11-14-2024 Monocytes/100 WBC (Bld) Automated monocyte % . [facility] Mucus [Presence] in Urine by AutomatedOrdered By: Ameya Salguero on 11-14-2024 Mucus Auto Ql (U) Mucus [Presence] in Urine by Automated Abnormal [facility] Neutrophils Auto (Bld) [#/Vo l]Ordered By: Ameya Salguero on 11-14-2024 Neutrophils (Bld) [#/Vol] Neutrophils [#/volume] in Blood by Automated count 1.8-7.7 [facility] Neutrophils/100 WBC Auto (Bl d)Ordered By: Ameya Salguero on 11-14-2024 Neutrophils/100 WBC (Bld) Automated neutrophil % . [facility] Nitrite Test strip Ql (U)Ord ered By: Ameya Salguero on 11-14-2024 Nitrite Ql (U) Nitrite [Presence] i n Urine by Test strip Negative [facility] No Panel InformationOrdered By: Ameya Salguero on 11-14-2024 Estimated GFR (CKD-EPI) > 60.0 mL/Min [facility] Creatinine Clearance (Chem 142.40 [facility] Nucleated erythrocytes [Pres ence] in Blood by Automated countOrdered By: Ameya Salguero on 11-14-2024 Nucleated RBC Auto Ql (Bld) Nucleated erythrocytes [Presence] in Blood by Automated count 0-0.5 [facility] Opiates [Presence] in Urine by Screen methodOrdered By: Amyea Salguero on 11-14-2024 Opiates Screen Ql (U) Opiates [Presence] in Urine by Screen method Negative [facility] Phencyclidine Screen Ql (U)O rdered By: Ameya Salguero on 11-14-2024 Phencyclidine Ql (U) Phencyclidine [Pres ence] in Urine by Screen method Negative [facility] Platelet mean volume Auto (B ld) [Entitic vol]Ordered By: Ameya Salguero on 11-14-2024 Platelet mean volume (Bld) [Entitic vol] Platelet mean volume [Entitic volume] in Blood by Automated count 6.3-10.7 [facility] Platelets Auto (Bld) [#/Vol] Ordered By: Ameya Salguero on 11-14-2024 Platelets (Bld) [#/Vol] Platelets [#/volume] in Blood by Automated count 150-450 [facility] Potassium [Moles/volume] in Serum or PlasmaOrdered By: Ameya Salguero on 11-14-2024 Potassium [Moles/Vol] Potassium [Moles/v olume] in Serum or Plasma 3.5-5.1 [facility] Protein Test strip (U) [Mass /Vol]Ordered By: Ameya Salguero on 11-14-2024 Protein (U) [Mass/Vol] Protein [Mass/volume] in Urine by Test strip High Negative [facility] Protein [Mass/volume] in Ser um or PlasmaOrdered By: Ameya Salguero on 11-14-2024 Protein [Mass/Vol] Protein [Mass/volume ] in Serum or Plasma 6.4-8.9 [facility] RBC Auto (Bld) [#/Vol]Ordere d By: Ameya Salguero on 11-14-2024 RBC (Bld) [#/Vol] Erythrocytes [#/volu me] in Blood by Automated count 3.60-5.00 [facility] Serum or plasma albumin/glob ulin mass ratioOrdered By: Ameya Salguero on 11-14-2024 Albumin/Globulin [Mass ratio] Serum or plasma albumin/globulin mass ratio [facility] Serum or plasma anion gap de terminationOrdered By: Ameya Salguero on 11-14-2024 Anion gap [Moles/Vol] Serum or plasma an ion gap determination 6.0-15.0 [facility] Serum or plasma total choles terol/high density lipoprotein (HDL) cholesterol mass ratOrdered By: Ameya Salguero on 11-14-2024 Cholesterol.total/Cho lesterol in HDL [Mass ratio] Serum or plasma total cholesterol/high density lipoprotein (HDL) cholesterol mass rat <5.0 [facility] Sodium [Moles/volume] in Ser um or PlasmaOrdered By: Ameya Salguero on 11-14-2024 Sodium [Moles/Vol] Sodium [Moles/volume ] in Serum or Plasma 136-145 [facility] Specific gravity Test strip (U) [Rel density]Ordered By: Ameya Salguero on 11-14-2024 Specific gravity (U) [Rel density] Specific gravity of Urine by Test strip High 1.001-1.030 [facility] Thyroid Stim Hormone w/Rflxo n 11-14-2024 Thyroid Stim Hormone w/Rflx 2.22 u[iU]/mL Normal 0.45-5.33 [facility] Comment on above: Performed By: #### U HCG, ADDONUAPLUS #### [address] Thyrotropin [Units/volume] i n Serum or PlasmaOrdered By: Ameya Salguero on 11-14-2024 TSH Qn Thyrotropin [Units/volume] in Serum or Plasma 0.45-5.33 [facility] Triglyceride [Mass/volume] i n Serum or PlasmaOrdered By: Ameya Salguero on 11-14-2024 Triglyceride [Mass/Vol] Triglyceride [Mass/volume] in Serum or Plasma 0-149 [facility] Comment on above: TRIG ATP III CLASSIF ICATIONTRIG less than 150 mg/dL NormalTRIG 150-199 mg/dL Borderline highTRIG 200-500 mg/dL High TRIG greater than 500 mg/dL Very highStandard traceable to the Center for Disease Conrtrol and Prevention (CDC) test method. Urea nitrogen [Mass/volume] in Serum or PlasmaOrdered By: Ameya Salguero on 11-14-2024 Urea nitrogen [Mass/Vol] Urea nitrogen [Mass/volume] in Serum or Plasma 7-25 [facility] Urobilinogen Test strip (U) [Mass/Vol]Ordered By: Ameya Salguero on 11-14-2024 Urobilinogen (U) [Mass/Vol] Urobilinogen [Mass/volume] in Urine by Test strip High Normal [facility] Vitamin D 25 Hydroxy Totalon 11-14-2024 Vitamin D 25 Hydroxy Total 8.5 ng/mL Low 30-100 [facility] Comment on above: Result Comment: CEM MIN D STATUS 25(OH)VITAMIN D RANGE (ng/mL) Deficient <20 Insufficient 20 to <30 Sufficient 30 to 100 Reference: Roly Trevino, Kassidy SHAH, et al. Evaluation,treatment, and prevention of vitamin D deficiency; an Endocrine Society clinical practice guideline. JCEM. 2010; 96(7):1911-30. PERFORMED BY: [place] [address] PATHOLOGIST INSTALLATION DRAFTER AMBER HENNING M.D. Performed By: #### U HCG, ADDONUAPLUS #### [address] Vitamin D+Metabolites [Mass/ volume] in Serum or PlasmaOrdered By: Ameya Salguero on 11-14-2024 Vitamin D+Metabolites [Mass/Vol] Vitamin D+Metabolites [Mass/volume] in Serum or Plasma Low 30-100 [facility] Comment on above: VITAMIN D STATUS 25( [...] ] in Blood by Automated count 3.8-11.6 [facility] pH Test strip (U)Ordered By: Ameya Salguero on 11-14-2024 pH (U) pH of Urine by Test strip 5.0-9.0 [facility] ECG 12 lead ECGon 11-07-2024 ECG 12 lead ECG [facility] [place] [address] Electrocardiograph Report Signed Patient: Barbra Claros MR#: [id number] : 1995 Acct:[id number] Age/Sex: 29 / F ADM Date: 11/07/24 Loc: Room: [address] [place] [address] Type: ADM IN Attending Dr: Kit Gutierrez [...] Signed By Paul Juarez MD 0 11/07/24 5819 Normal [facility] Alanine aminotransferase [En zymatic activity/volume] in Serum or PlasmaOrdered By: Duane Simons on 11-06-2024 ALT [Catalytic activity/Vol] Alanine aminotransferase [Enzymatic activity/volume] in Serum or Plasma [facility] Albumin [Mass/volume] in Ser um or Plasma by Bromocresol green (BCG) dye binding methoOrdered By: Duane Simons on 11-06-2024 Albumin BCG dye [Mass/Vol] Albumin [Mass/volume] in Serum or Plasma by Bromocresol green (BCG) dye binding metho 3.5-5.7 [facility] Alkaline phosphatase [Enzyma tic activity/volume] in Serum or PlasmaOrdered By: Duane Simons on 11-06-2024 ALP [Catalytic activity/Vol] Alkaline phosphatase [Enzymatic activity/volume] in Serum or Plasma 34-104 [facility] Amphetamine Screen Ql (U)Ord ered By: Duane Simons on 11-06-2024 Amphetamines Ql (U) Amphetamines screen Negativ e [facility] Appearance of UrineOrdered B y: Duane Simons on 11-06-2024 Appearance (U) Urine appearance Clear [facility] Aspartate aminotransferase [ Enzymatic activity/volume] in Serum or PlasmaOrdered By: Duane Simons on 11-06-2024 AST [Catalytic activity/Vol] Aspartate aminotransferase [Enzymatic activity/volume] in Serum or Plasma 13-39 [facility] Bacteria [Presence] in Urine by AutomatedOrdered By: Duane Simons on 11-06-2024 Bacteria Auto Ql (U) Bacteria [Presence] in Urine by Automated None Seen [facility] Barbiturates [Presence] in U rine by Screen methodOrdered By: Duane Simons on 11-06-2024 Barbiturates Screen Ql (U) Barbiturates [Presence] in Urine by Screen method Negative [facility] Basophils Auto (Bld) [#/Vol] Ordered By: Duane Simons on 11-06-2024 Basophils (Bld) [#/Vol] Automated basophil count 0.0-0.2 [facility] Basophils/100 WBC Auto (Bld) Ordered By: Duane Simons on 11-06-2024 Basophils/100 WBC (Bld) Automated basophil % . [facility] Benzodiazepines Screen Ql (U )Ordered By: Duane Simons on 11-06-2024 Benzodiazepines Ql (U) Benzodiazepines [Presence] in Urine by Screen method Negative [facility] Benzoylecgonine [Presence] i n Urine by Screen methodOrdered By: Duane Simons on 11-06-2024 Benzoylecgonine Screen Ql (U) Benzoylecgonine [Presence] in Urine by Screen method Negative [facility] Bilirubin Test strip Ql (U)O rdered By: Duane Simons on 11-06-2024 Bilirubin Ql (U) Bilirubin.total [Presence] in Urine by Test strip Negative [facility] Bilirubin.total [Mass/volume ] in Serum or PlasmaOrdered By: Duane Simons on 11-06-2024 Bilirubin [Mass/Vol] Bilirubin.total [Mass/volume] in Serum or Plasma 0.3-1.0 [facility] Calcium [Mass/volume] in Ser um or PlasmaOrdered By: Duane Simons on 11-06-2024 Calcium [Mass/Vol] Calcium [Mass/volume ] in Serum or Plasma 8.6-10.3 [facility] Cannabinoids [Presence] in U rine by Screen methodOrdered By: Duane Simons on 11-06-2024 Cannabinoids Screen Ql (U) Cannabinoids [Presence] in Urine by Screen method High Negative [facility] Comment on above: These are unconfirme d [...] l [Moles/volume] in Serum or Plasma 21.0-31.0 [facility] Chloride [Moles/volume] in S karla or PlasmaOrdered By: Duane Simons on 11-06-2024 Chloride [Moles/Vol] Chloride [Moles/vol ume] in Serum or Plasma 98-107 [facility] Cholesterol [Mass/volume] in Serum or PlasmaOrdered By: Kit Gutierrez on 11-06-2024 Cholesterol [Mass/Vol] Cholesterol [Mass/volume] in Serum or Plasma 140-200 [facility] Comment on above: Chol less than 200 m g/dl low riskChol 201-239 mg/dl borderline riskChol 240 mg/dl and greater high risk Cholesterol in HDL [Mass/vol ume] in Serum or PlasmaOrdered By: Kit Gutierrez on 11-06-2024 Cholesterol in HDL [Mass/Vol] Serum or plasma high density lipoprotein (HDL) cholesterol measurement 23-92 [facility] Comment on above: HDL CHOL ATP-III CLA SSIFICATION Cardiovascular RiskHDL > or equal to 60 mg/dL LOWHDL < 40 mg/dL HIGH Cholesterol in LDL Calc [Mas s/Vol]Ordered By: Kit Gutierrez on 11-06-2024 Cholesterol in LDL [Mass/Vol] Cholesterol in LDL [Mass/volume] in Serum or Plasma by calculation 0-100 [facility] Comment on above: LDL ATP III CLASSIFI CATIONLDL less than 100 mg/dL OptimalLDL 100-129 mg/dL Near or above optimalLDL 130-159 mg/dL Borderline highLDL 160-189 mg/dL HighLDL greater than 189 mg/dL Very high Cholesterol in VLDL Calc [Ma ss/Vol]Ordered By: Kit Gutierrez on 11-06-2024 Cholesterol in VLDL [Mass/Vol] Cholesterol in VLDL [Mass/volume] in Serum or Plasma by calculation [facility] Color Auto (U)Ordered By: Avila Simons on 11-06-2024 Color (U) Color of Urine by Auto Yellow Fi [facility] Complete Blood Count Auto Di ffon 11-06-2024 Basophils (Bld) [#/Vol] 0.0 10*3/uL Normal 0.0-0.2 [facility] Comment on above: Result Comment: PERF ORMED BY: [place] [address] PATHOLOGIST INSTALLATION DRAFTER ZULEIMA ZHANG M.D. Performed By: #### C UU #### [facility] [address] [place] [address] [place] Basophils/100 WBC (Bld) 0.5 % Normal . [facility] Comment on above: Performed By: #### C UU #### [facility] [address] [place] [address] [place] Eosinophils (Bld) [#/Vol] 0.0 10*3/uL Normal 0.0-0.45 [facility] Comment on above: Performed By: #### C UU #### [place] [address] [place] Eosinophils/100 WBC (Bld) 0.1 % Normal . [facility] Comment on above: Performed By: #### C UU #### [address] Erythrocyte distribution width (RBC) [Ratio] 14.8 % Normal 11.9-15.3 [facility] Comment on above: Performed By: #### C UU #### [address] Hematocrit (Bld) [Volume fraction] 36.8 % Normal 34.0-46.4 [facility] Comment on above: Performed By: #### C UU #### [address] Hemoglobin (Bld) [Mass/Vol] 12.6 g/dL Normal 11.8-15.4 [facility] Comment on above: Performed By: #### C UU #### [address] Lymphocytes (Bld) [#/Vol] 2.1 10*3/uL Normal 1.00-4.8 [facility] Comment on above: Performed By: #### C UU #### [address] Lymphocytes/100 WBC (Bld) 36.1 % Normal . [facility] Comment on above: Performed By: #### C UU #### [address] MCH (RBC) [Entitic mass] 29.4 pg Normal 24.7-34.3 [facility] Comment on above: Performed By: #### C UU #### [address] MCV (RBC) [Entitic vol] 86.1 fL Normal 80-100 [facility] Comment on above: Performed By: #### C UU #### [address] Mean Corpuscular HGB Conc 34.2 g/dL Normal 32.0-35.0 [facility] Comment on above: Performed By: #### C UU #### [place] [address] [place] Monocytes (Bld) [#/Vol] 0.3 10*3/uL Normal 0.0-0.8 [facility] Comment on above: Performed By: #### C UU #### [place] [address] [place] Monocytes/100 WBC (Bld) 18.05 % Normal 0.00-20.00 [facility] Comment on above: Performed By: #### C UU #### [place] [address] [place] Monocytes/100 WBC (Bld) 4.7 % Normal . [facility] Comment on above: Performed By: #### C UU #### [address] Neutrophils (Bld) [#/Vol] 3.5 10*3/uL Normal 1.8-7.7 [facility] Comment on above: Performed By: #### C UU #### [place] [address] [place] Neutrophils/100 WBC (Bld) 58.6 % Normal . [facility] Comment on above: Performed By: #### C UU #### [address] NRBC% 0.1 /100{WBC} Normal 0-0.5 [facility] Comment on above: Performed By: #### C UU #### [place] [address] [place] Platelet mean volume (Bld) [Entitic vol] 7.8 fL Normal 6.3-10.7 [facility] Comment on above: Performed By: #### C UU #### [place] [address] [place] Platelets (Bld) [#/Vol] 264 10*3/uL Normal 150-450 [facility] Comment on above: Performed By: #### C UU #### [place] [address] [place] RBC (Bld) [#/Vol] 4.27 10*6/uL Normal 3.60-5.00 [facility] Comment on above: Performed By: #### C UU #### [address] WBC (Bld) [#/Vol] 5.9 10*3/uL Normal 3.8-11.6 [facility] Comment on above: Performed By: #### C UU #### [address] Comprehensive Metabolic Pane blaine 11-06-2024 Albumin [Mass/Vol] 4.5 g/dL Normal 3.5-5.7 [facility] Comment on above: Performed By: #### C UU #### [address] Albumin/Globulin [Mass ratio] 1.7 {ratio} Normal [facility] Comment on above: Performed By: #### C UU #### [address] ALP [Catalytic activity/Vol] 52 U/L Normal 34-104 [facility] Comment on above: Performed By: #### C UU #### [address] ALT [Catalytic activity/Vol] 11 U/L Normal 7-52 [facility] Comment on above: Performed By: #### C UU #### [address] Anion gap [Moles/Vol] 9.6 mmol/L Normal 6.0-15.0 [facility] Comment on above: Performed By: #### C UU #### [address] AST [Catalytic activity/Vol] 13 U/L Normal 13-39 [facility] Comment on above: Performed By: #### C UU #### [address] Bilirubin [Mass/Vol] 0.3 mg/dL Normal 0.3-1.0 [facility] Comment on above: Performed By: #### C UU #### [address] Calcium [Mass/Vol] 9.1 mg/dL Normal 8.6-10.3 [facility] Comment on above: Performed By: #### C UU #### [address] Chloride [Moles/Vol] 106 mmol/L Normal 98-107 [facility] Comment on above: Performed By: #### C UU #### [address] CO2 [Moles/Vol] 27.1 mmol/L Normal 21.0-31.0 [facility] Comment on above: Performed By: #### C UU #### [address] Creatinine [Mass/Vol] 0.67 mg/dL Normal 0.60-1.20 [facility] Comment on above: Performed By: #### C UU #### [address] Creatinine Clr Calc Pharmacy 112.89 Normal [facility] Comment on above: Result Comment: PERF ORMED BY: [place] [address] PATHOLOGIST INSTALLATION DRAFTER ZULEIMA ZHANG M.D. Performed By: #### C UU #### [address] GFR/1.73 sq M.predicted MDRD (S/P/Bld) [Vol rate/Area] mL/min/{1.73_m2} Normal [facility] Comment on above: Performed By: #### C UU #### [address] Globulin (S) [Mass/Vol] 2.7 g/dL Normal [facility] Comment on above: Performed By: #### C UU #### [address] Glucose [Mass/Vol] 89 mg/dL Normal 70-100 [facility] Comment on above: Result Comment: [place] Glucose Reference Range is dependent on time and content of last meal. Glucose of more than 200 mg/dL in a nonstressed, ambulatory subject supports the diagnosis of Diabetes Mellitus. ADA recommended reference range Performed By: #### C UU #### [address] Potassium [Moles/Vol] 3.7 mmol/L Normal 3.5-5.1 [facility] Comment on above: Performed By: #### C UU #### [address] Protein [Mass/Vol] 7.2 g/dL Normal 6.4-8.9 [facility] Comment on above: Performed By: #### C UU #### [address] Sodium [Moles/Vol] 139 mmol/L Normal 136-145 [facility] Comment on above: Performed By: #### C UU #### [address] Urea nitrogen [Mass/Vol] 6 mg/dL Low 7-25 [facility] Comment on above: Performed By: #### C UU #### [address] Creatinine [Mass/volume] in Serum or PlasmaOrdered By: Duane Simons on 11-06-2024 Creatinine [Mass/Vol] Creatinine [Mass/v olume] in Serum or Plasma 0.60-1.20 [facility] Dipstick and Microscopicon 0 11-06-2024 Appearance (U) Clear Normal Clear [facility] Comment on above: Order Comment: Name Collection Type:: Clean-Voided Midstream Performed By: #### U HCG, ADDONUAPLUS #### [place] [address] [place] Bacteria,Urine None Seen Normal None Seen [facility] Comment on above: Order Comment: Name Collection Type:: Clean-Voided Midstream Performed By: #### U HCG, ADDONUAPLUS #### [place] [address] [place] Bilirubin,Urine Negative Normal Negative [facility] Comment on above: Order Comment: Name Collection Type:: Clean-Voided Midstream Performed By: #### U HCG, ADDONUAPLUS #### [place] [address] [place] Color (U) Light-Yellow Normal Yellow [facility] Comment on above: Order Comment: Name Collection Type:: Clean-Voided Midstream Performed By: #### U HCG, ADDONUAPLUS #### [address] Glucose Ql (U) Normal Normal Normal [facility] Comment on above: Order Comment: Name Collection Type:: Clean-Voided Midstream Performed By: #### U HCG, ADDONUAPLUS #### [place] [address] [place] Hyaline Casts,Urine None Normal 0-8 [facility] Comment on above: Order Comment: Name Collection Type:: Clean-Voided Midstream Performed By: #### U HCG, ADDONUAPLUS #### [address] Ketones Ql (U) Negative Normal Negative [facility] Comment on above: Order Comment: Name Collection Type:: Clean-Voided Midstream Performed By: #### U HCG, ADDONUAPLUS #### [place] [address] [place] Leukocyte esterase Test strip Ql (U) 2+ High Negative [facility] Comment on above: Order Comment: Name Collection Type:: Clean-Voided Midstream Performed By: #### U HCG, ADDONUAPLUS #### [place] [address] [place] Nitrite,Urine Negative Normal Negative [facility] Comment on above: Order Comment: Name Collection Type:: Clean-Voided Midstream Performed By: #### U HCG, ADDONUAPLUS #### [address] Occult Blood,Urine Trace High Negative [facility] Comment on above: Order Comment: Name Collection Type:: Clean-Voided Midstream Performed By: #### U HCG, ADDONUAPLUS #### [address] pH (U) 5.5 [pH] Normal 5.0-9.0 [facility] Comment on above: Order Comment: Name Collection Type:: Clean-Voided Midstream Performed By: #### U HCG, ADDONUAPLUS #### [address] Protein,Urine Negative Normal Negative [facility] Comment on above: Order Comment: Name Collection Type:: Clean-Voided Midstream Performed By: #### U HCG, ADDONUAPLUS #### [address] RBC,Urine None Seen Normal 0-4 [facility] Comment on above: Order Comment: Name Collection Type:: Clean-Voided Midstream Performed By: #### U HCG, ADDONUAPLUS #### [address] [place],Urine 1.015 Normal 1.001-1.030 [facility] Comment on above: Order Comment: Name Collection Type:: Clean-Voided Midstream Performed By: #### U HCG, ADDONUAPLUS #### [address] Urobilinogen,Urine Normal Normal Normal [facility] Comment on above: Order Comment: Name Collection Type:: Clean-Voided Midstream Performed By: #### U HCG, ADDONUAPLUS #### [address] WBC,Urine 1-2 Normal 0-4 [facility] Comment on above: Order Comment: Name Collection Type:: Clean-Voided Midstream Performed By: #### U HCG, ADDONUAPLUS #### [address] Drug Screen,Urineon 11-07-19 Amphetamine Screen,Urine Negative Normal Negative [facility] Comment on above: Performed By: #### U RDS #### [address] Barbiturate Screen,Urine Negative Normal Negative [facility] Comment on above: Performed By: #### U RDS #### [address] Benzodiazepines Screen,Urine Negative Normal Negative [facility] Comment on above: Performed By: #### U RDS #### [address] Cannabinoid Screen,Urine Positive High Negative [facility] Comment on above: Result Comment: Thes e are unconfirmed results and should not be used for legal purposes. Drug Cut-Off Concentration: AMPH 1000 ng/mL FIONA 200 ng/mL KIMMY 200 ng/mL COCM 300 ng/mL OP 300 ng/mL PCP 25 ng/mL THC 20 ng/mL PERFORMED BY: [place] [address] PATHOLOGIST INSTALLATION DRAFTER ZULEIMA ZHANG M.D. Performed By: #### U RDS #### [address] Cocaine Screen,Urine Negative Normal Negative [facility] Comment on above: Performed By: #### U RDS #### [address] Opiate Screen,Urine Negative Normal Negative [facility] Comment on above: Performed By: #### U RDS #### [address] Phencyclidine Screen,Urine Negative Normal Negative [facility] Comment on above: Performed By: #### U RDS #### [address] Eosinophils Auto (Bld) [#/Vo l]Ordered By: Duane Simons on 11-06-2024 Eosinophils (Bld) [#/Vol] Automated eosinophil count 0.0-0.45 [facility] Eosinophils/100 WBC Auto (Bl d)Ordered By: Duane Simons on 11-06-2024 Eosinophils/100 WBC (Bld) Automated eosinophil % . [facility] Epithelial cells.squamous [# /area] in Urine sediment by Automated countOrdered By: Duane Simons on 11-06-2024 Epithelial cells.squamous Auto (Urine sed) [#/Area] Epithelial cells.squamous [#/area] in Urine sediment by Automated count [facility] Erythrocyte distribution wid th Auto (RBC) [Ratio]Ordered By: Duane Simons on 11-06-2024 Erythrocyte distribution width (RBC) [Ratio] Erythrocyte distribution width [Ratio] by Automated count 11.9-15.3 [facility] Erythrocytes [#/area] in Uri ne sediment by Automated countOrdered By: Duane Simons on 11-06-2024 RBC Auto (Urine sed) [#/Area] Erythrocytes [#/area] in Urine sediment by Automated count 0-4 [facility] Ethanol [Mass/volume] in Ser um or PlasmaOrdered By: Duane Simons on 11-06-2024 Ethanol [Mass/Vol] Ethanol [Mass/volume ] in Serum or Plasma [facility] Comment on above: Test not performed Ethyl Alcohol Profileon 10-18 Ethanol [Mass/Vol] mg/dL Normal [facility] Comment on above: Performed By: #### C UU #### [facility] [address] [place] [address] Percent Ethanol Not performed Normal [facility] Comment on above: Result Comment: PERF ORMED BY: [place] [address] PATHOLOGIST INSTALLATION DRAFTER ZULEIMA ZHANG M.D. Performed By: #### C UU #### [facility] [address] [place] [address] Globulin Calc (S) [Mass/Vol] Ordered By: Duane Simons on 11-06-2024 Globulin (S) [Mass/Vol] Serum globulin measurement by calculation (mass/volume) [facility] Glucose [Mass/volume] in Ser um or PlasmaOrdered By: Duane Simons on 11-06-2024 Glucose [Mass/Vol] Glucose [Mass/volume ] in Serum or Plasma 70-100 [facility] Comment on above: ADA recommended refe rence rangeRandom Glucose Reference Range is dependent on time and content of last meal. Glucose of more than 200 mg/dL in a nonstressed, ambulatory subject supports the diagnosis of Diabetes Mellitus. Glucose [Mass/volume] in Uri ne by Test stripOrdered By: Duane Simons on 11-06-2024 Glucose Test strip (U) [Mass/Vol] Glucose [Mass/volume] in Urine by Test strip Normal [facility] HCG ( test) IA.rapi d Ql (U)Ordered By: Duane Simons on 11-06-2024 HCG ( test) Ql (U) Urine human chorionic gonadotropin (hCG) detection by immunoassay [facility] HCG,Urineon 11-06-2024 Beta HCG ( test) Ql (U) Negative Normal [facility] Comment on above: Order Comment: Name Collection Type:: Clean-Voided Midstream Result Comment: PERF ORMED BY: [place] [address] PATHOLOGIST INSTALLATION DRAFTER ZULEIMA ZHANG M.D. Performed By: #### U HCG, ADDONUAPLUS #### [address] Hematocrit Auto (Bld) [Volum e fraction]Ordered By: Duane Simons on 11-06-2024 Hematocrit (Bld) [Volume fraction] Hematocrit [Volume Fraction] of Blood by Automated count 34.0-46.4 [facility] Hemoglobin Test strip Ql (U) Ordered By: Duane Simons on 11-06-2024 Hemoglobin Ql (U) Hemoglobin [Presence ] in Urine by Test strip High Negative [facility] Hemoglobin [Mass/volume] in BloodOrdered By: Duane Simons on 11-06-2024 Hemoglobin (Bld) [Mass/Vol] Hemoglobin [Mass/volume] in Blood 11.8-15.4 [facility] Hyaline casts [#/area] in Ur ine sediment by Automated countOrdered By: Duane Simons on 11-06-2024 Hyaline casts Auto (Urine sed) [#/Area] Hyaline casts [#/area] in Urine sediment by Automated count 0-8 [facility] Ketones Test strip Ql (U)Ord ered By: Duane Simons on 11-06-2024 Ketones Ql (U) Ketones [Presence] i n Urine by Test strip Negative [facility] Leukocyte esterase [Presence ] in Urine by Test stripOrdered By: Duane Simons on 11-06-2024 Leukocyte esterase Test strip Ql (U) Leukocyte esterase [Presence] in Urine by Test strip High Negative [facility] Leukocytes [#/area] in Urine sediment by Automated countOrdered By: Duane Simons on 11-06-2024 WBC Auto (Urine sed) [#/Area] Leukocytes [#/area] in Urine sediment by Automated count 0-4 [facility] Leukocytes [#/volume] correc arminda for nucleated erythrocytes in Blood by Automated counOrdered By: Duane Simons on 11-06-2024 WBC corrected for nucl RBC Auto (Bld) [#/Vol] Leukocytes [#/volume] corrected for nucleated erythrocytes in Blood by Automated coun 3.8-11.6 [facility] Lipid Panelon 11-06-2024 Cholesterol [Mass/Vol] 149 mg/dL Normal 140-200 [facility] Comment on above: Result Comment: Chol less than 200 mg/dl low risk Chol 201-239 mg/dl borderline risk Chol 240 mg/dl and greater high risk Performed By: #### U HCG, ADDONUAPLUS #### [facility] [address] [place] [address] Cholesterol in HDL [Mass/Vol] 44 mg/dL Normal 23-92 [facility] Comment on above: Result Comment: HDL CHOL ATP-III CLASSIFICATION Cardiovascular Risk HDL > or equal to 60 mg/dL LOW HDL < 40 mg/dL HIGH Performed By: #### U HCG, ADDONUAPLUS #### [facility] [address] Cholesterol.total/Cho lesterol in HDL [Mass ratio] 3.4 {ratio} Normal <5.0 [facility] Comment on above: Performed By: #### U HCG, ADDONUAPLUS #### [facility] [address] LDL Cholesterol,Calculate d 96 mg/dL Normal 0-100 [facility] Comment on above: Result Comment: LDL ATP III CLASSIFICATION LDL less than 100 mg/dL Optimal LDL 100-129 mg/dL Near or above optimal LDL 130-159 mg/dL Borderline high LDL 160-189 mg/dL High LDL greater than 189 mg/dL Very high Performed By: #### U HCG, ADDONUAPLUS #### [facility] [address] Triglyceride w/Reflex 44 mg/dL Normal 0-149 [facility] Comment on above: Result Comment: TRIG ATP III CLASSIFICATION TRIG less than 150 mg/dL Normal TRIG 150-199 mg/dL Borderline high TRIG 200-500 mg/dL High TRIG greater than 500 mg/dL Very high Standard traceable to the Center for Disease Conrtrol and Prevention (CDC) test method. Performed By: #### U HCG, ADDONUAPLUS #### [facility] [address] [place] [address] VLDL CHOLESTEROL 8 mg/dL Normal [facility] Comment on above: Performed By: #### U HCG, ADDONUAPLUS #### [facility] [address] Lymphocytes Auto (Bld) [#/Vo l]Ordered By: Duane Simons on 11-06-2024 Lymphocytes (Bld) [#/Vol] Lymphocytes [#/volume] in Blood by Automated count 1.00-4.8 [facility] Lymphocytes/100 WBC Auto (Bl d)Ordered By: Duane Simons on 11-06-2024 Lymphocytes/100 WBC (Bld) Lymphocytes/100 leukocytes in Blood by Automated count . [facility] MCH Auto (RBC) [Entitic mass ]Ordered By: Duane Simons on 11-06-2024 MCH (RBC) [Entitic mass] MCH [Entitic mass] by Automated count 24.7-34.3 [facility] MCHC Auto (RBC) [Mass/Vol]Or dered By: Duane Simons on 11-06-2024 MCHC (RBC) [Mass/Vol] MCHC [Mass/volume] by Automated count 32.0-35.0 [facility] MCV Auto (RBC) [Entitic vol] Ordered By: Duane Simons on 11-06-2024 MCV (RBC) [Entitic vol] MCV [Entitic volume] by Automated count 80-100 [facility] Monocyte distribution width [Entitic volume] in Blood by AutomatedOrdered By: Duane Simons on 11-06-2024 Monocyte distribution width Auto (Bld) [Entitic vol] Monocyte distribution width [Entitic volume] in Blood by Automated 0.00-20.00 [facility] Monocytes Auto (Bld) [#/Vol] Ordered By: Duane Simons on 11-06-2024 Monocytes (Bld) [#/Vol] Automated blood monocyte count 0.0-0.8 [facility] Monocytes/100 WBC Auto (Bld) Ordered By: Duane Simons on 11-06-2024 Monocytes/100 WBC (Bld) Automated monocyte % . [facility] Neutrophils Auto (Bld) [#/Vo l]Ordered By: Duane Simons on 11-06-2024 Neutrophils (Bld) [#/Vol] Neutrophils [#/volume] in Blood by Automated count 1.8-7.7 [facility] Neutrophils/100 WBC Auto (Bl d)Ordered By: Duane Simons on 11-06-2024 Neutrophils/100 WBC (Bld) Automated neutrophil % . [facility] Nitrite Test strip Ql (U)Ord ered By: Duane Simons on 11-06-2024 Nitrite Ql (U) Nitrite [Presence] i n Urine by Test strip Negative [facility] No Panel InformationOrdered By: Duane Simons on 11-06-2024 Estimated GFR (CKD-EPI) > 60.0 mL/Min [facility] Creatinine Clearance (Chem 112.89 [facility] Nucleated erythrocytes [Pres ence] in Blood by Automated countOrdered By: Duane Simons on 11-06-2024 Nucleated RBC Auto Ql (Bld) Nucleated erythrocytes [Presence] in Blood by Automated count 0-0.5 [facility] Opiates [Presence] in Urine by Screen methodOrdered By: Duane Simons on 11-06-2024 Opiates Screen Ql (U) Opiates [Presence] in Urine by Screen method Negative [facility] Phencyclidine Screen Ql (U)O rdered By: Duane Simons on 11-06-2024 Phencyclidine Ql (U) Phencyclidine [Pres ence] in Urine by Screen method Negative [facility] Platelet mean volume Auto (B ld) [Entitic vol]Ordered By: Duane Simons on 11-06-2024 Platelet mean volume (Bld) [Entitic vol] Platelet mean volume [Entitic volume] in Blood by Automated count 6.3-10.7 [facility] Platelets Auto (Bld) [#/Vol] Ordered By: Duane Simons on 11-06-2024 Platelets (Bld) [#/Vol] Platelets [#/volume] in Blood by Automated count 150-450 [facility] Potassium [Moles/volume] in Serum or PlasmaOrdered By: Duane Simons on 11-06-2024 Potassium [Moles/Vol] Potassium [Moles/v olume] in Serum or Plasma 3.5-5.1 [facility] Protein Test strip (U) [Mass /Vol]Ordered By: Duane Simons on 11-06-2024 Protein (U) [Mass/Vol] Protein [Mass/volume] in Urine by Test strip Negative [facility] Protein [Mass/volume] in Ser um or PlasmaOrdered By: Duane Simons on 11-06-2024 Protein [Mass/Vol] Protein [Mass/volume ] in Serum or Plasma 6.4-8.9 [facility] RBC Auto (Bld) [#/Vol]Ordere d By: Duane Simons on 11-06-2024 RBC (Bld) [#/Vol] Erythrocytes [#/volu me] in Blood by Automated count 3.60-5.00 [facility] Serum or plasma albumin/glob ulin mass ratioOrdered By: Duane Simons on 11-06-2024 Albumin/Globulin [Mass ratio] Serum or plasma albumin/globulin mass ratio [facility] Serum or plasma anion gap de terminationOrdered By: Duane Simons on 11-06-2024 Anion gap [Moles/Vol] Serum or plasma an ion gap determination 6.0-15.0 [facility] Serum or plasma total choles terol/high density lipoprotein (HDL) cholesterol mass ratOrdered By: Kit Gutierrez on 11-06-2024 Cholesterol.total/Cho lesterol in HDL [Mass ratio] Serum or plasma total cholesterol/high density lipoprotein (HDL) cholesterol mass rat <5.0 [facility] Sodium [Moles/volume] in Ser um or PlasmaOrdered By: Duane Simons on 11-06-2024 Sodium [Moles/Vol] Sodium [Moles/volume ] in Serum or Plasma 136-145 [facility] Specific gravity Test strip (U) [Rel density]Ordered By: Duane Simons on 11-06-2024 Specific gravity (U) [Rel density] Specific gravity of Urine by Test strip 1.001-1.030 [facility] Thyroid Stim Hormone w/Rflxo n 11-06-2024 Thyroid Stim Hormone w/Rflx 0.79 u[iU]/mL Normal 0.45-5.33 [facility] Comment on above: Performed By: #### U HCG, ADDONUAPLUS #### [facility] [address] Thyrotropin [Units/volume] i n Serum or PlasmaOrdered By: Kit Gutierrez on 11-06-2024 TSH Qn Thyrotropin [Units/volume] in Serum or Plasma 0.45-5.33 [facility] Triglyceride [Mass/volume] i n Serum or PlasmaOrdered By: Kit Gutierrez on 11-06-2024 Triglyceride [Mass/Vol] Triglyceride [Mass/volume] in Serum or Plasma 0-149 [facility] Comment on above: TRIG ATP III CLASSIF ICATIONTRIG less than 150 mg/dL NormalTRIG 150-199 mg/dL Borderline highTRIG 200-500 mg/dL High TRIG greater than 500 mg/dL Very highStandard traceable to the Center for Disease Conrtrol and Prevention (CDC) test method. Urea nitrogen [Mass/volume] in Serum or PlasmaOrdered By: Duane Simons on 11-06-2024 Urea nitrogen [Mass/Vol] Urea nitrogen [Mass/volume] in Serum or Plasma Low 7-25 [facility] Urobilinogen Test strip (U) [Mass/Vol]Ordered By: Duane Simons on 11-06-2024 Urobilinogen (U) [Mass/Vol] Urobilinogen [Mass/volume] in Urine by Test strip Normal [facility] Vitamin D 25 Hydroxy Totalon 11-06-2024 Vitamin D 25 Hydroxy Total 7.8 ng/mL Low 30-100 [facility] Comment on above: Result Comment: CEM MIN D STATUS 25(OH)VITAMIN D RANGE (ng/mL) Deficient <20 Insufficient 20 to <30 Sufficient 30 to 100 Reference: Roly Trevino, Kassidy SHAH, et al. Evaluation,treatment, and prevention of vitamin D deficiency; an Endocrine Society clinical practice guideline. JCEM. 2010; 96(7):1911-. PERFORMED BY: [place] [address] PATHOLOGIST INSTALLATION DRAFTER ZULEIMA ZHANG M.D. Performed By: #### U HCG, ADDONUAPLUS #### [address] Vitamin D+Metabolites [Mass/ volume] in Serum or PlasmaOrdered By: Kit Gutierrez on 11-06-2024 Vitamin D+Metabolites [Mass/Vol] Vitamin D+Metabolites [Mass/volume] in Serum or Plasma Low 30-100 [facility] Comment on above: VITAMIN D STATUS 25( [...] ] in Blood by Automated count 3.8-11.6 [facility] pH Test strip (U)Ordered By: Duane Simons on 11-06-2024 pH (U) pH of Urine by Test strip 5.0-9.0 [facility] CBC AND AUTO DIFFon 09-17-19 25 ABSOLUTE BASOPHIL 0.0 X10E9/L Normal 0.0-0.2 [facility] Comment on above: Performed By: #### C BCA, CMP #### [facility] ([id number]) [address] [place] [address] 64797 ABSOLUTE NEUTROPHIL 3.0 X10E9/L Normal 1.5-6.6 [facility] Comment on above: Performed By: #### C BCA, CMP #### [facility] ([id number]) [address] [place] [address] 45301 Basophils/100 WBC (Bld) 0.4 % Normal [facility] Comment on above: Performed By: #### C BCA, CMP #### [facility] ([id number]) [address] [place] [address] 96129 Eosinophils (Bld) [#/Vol] 0.1 10*3/uL Normal 0.0-0.4 [facility] Comment on above: Performed By: #### C BCA, CMP #### [facility] ([id number]) [address] [place] [address] 57916 Eosinophils/100 WBC (Bld) 1.0 % Normal [facility] Comment on above: Performed By: #### C BCA, CMP #### [facility] ([id number]) [address] [place] [address] 37807 Erythrocyte distribution width (RBC) [Ratio] 15.6 % High 11.5-15.0 [facility] Comment on above: Performed By: #### C BCA, CMP #### [facility] ([id number]) [address] [place] [address] 17139 Hematocrit (Bld) [Volume fraction] 35.7 % Normal 35-47 [facility] Comment on above: Performed By: #### C BCA, CMP #### [facility] ([id number]) [address] [place] [address] 74865 Hemoglobin (Bld) [Mass/Vol] 12.4 g/dL Normal 11.7-15.5 [facility] Comment on above: Performed By: #### C DARIO, CMP #### [facility] ([id number]) [address] [place] [address] 75249 Lymphocytes (Bld) [#/Vol] 2.1 10*3/uL Normal 1.0-3.5 [facility] Comment on above: Performed By: #### C DARIO, CMP #### [facility] ([id number]) [address] [place] [address] 38962 Lymphocytes/100 WBC (Bld) 37.9 % Normal [facility] Comment on above: Performed By: #### C DARIO, CMP #### [facility] ([id number]) [address] [place] [address] 26409 MCH (RBC) [Entitic mass] 29.4 pg Normal 27-34 [facility] Comment on above: Performed By: #### C DARIO, CMP #### [facility] ([id number]) [address] [place] [address] 47869 MCHC (RBC) [Mass/Vol] 34.6 g/dL Normal 32-36 [facility] Comment on above: Performed By: #### C DARIO, CMP #### [facility] ([id number]) [address] [place] [address] 10078 MCV (RBC) [Entitic vol] 85 fL Normal 80-100 [facility] Comment on above: Performed By: #### C DARIO, CMP #### [facility] ([id number]) [address] [place] [address] 28537 Monocytes (Bld) [#/Vol] 0.4 10*3/uL Normal 0-0.9 [facility] Comment on above: Performed By: #### C DARIO, CMP #### [facility] ([id number]) [address] [place] [address] 58310 Monocytes/100 WBC (Bld) 7.5 % Normal [facility] Comment on above: Performed By: #### C BCA, CMP #### [facility] ([id number]) [address] [place] [address] 72274 Neutrophils/100 WBC (Bld) 53.2 % Normal [facility] Comment on above: Performed By: #### C DARIO, CMP #### [facility] ([id number]) [address] [place] [address] 45821 Platelet mean volume (Bld) [Entitic vol] 8.0 fL Normal 7-12 [facility] Comment on above: Performed By: #### C DARIO, CMP #### [facility] ([id number]) [address] [place] [address] 95190 Platelets (Bld) [#/Vol] 217 10*3/uL Normal 150-450 [facility] Comment on above: Performed By: #### C DARIO, CMP #### [facility] ([id number]) [address] [place] [address] 37263 RBC COUNT 4.20 X10E12/L Normal 3.80-5.20 [facility] Comment on above: Performed By: #### C DARIO, CMP #### [facility] ([id number]) [address] [place] [address] 00725 WBC (Bld) [#/Vol] 5.7 10*3/uL Normal 4.0-11.0 [facility] Comment on above: Performed By: #### C BCA, CMP #### [facility] ([id number]) [address] [place] [address] 80819 COMPREHENSIVE METABOLIC PANE [place] 09-16-2024 Albumin [Mass/Vol] 4.6 g/dL Normal 3.2-5.3 [facility] Comment on above: Performed By: #### C BCA, CMP #### [facility] ([id number]) [address] [place] [address] 34266 ALP [Catalytic activity/Vol] 48 U/L Normal 39-130 [facility] Comment on above: Performed By: #### C BCA, CMP #### [facility] ([id number]) [address] [place] [address] 77788 ALT [Catalytic activity/Vol] 12 U/L Normal 0-31 [facility] Comment on above: Performed By: #### C BCA, CMP #### [facility] ([id number]) [address] [place] [address] 12223 Anion gap [Moles/Vol] 8 mmol/L Normal 5-15 [facility] Comment on above: Performed By: #### C BCA, CMP #### [facility] ([id number]) [address] [place] [address] 77624 AST [Catalytic activity/Vol] 17 U/L Normal 0-41 [facility] Comment on above: Performed By: #### C BCA, CMP #### [facility] ([id number]) [address] [place] [address] 36461 Bilirubin [Mass/Vol] 0.3 mg/dL Normal 0.3-1.2 [facility] Comment on above: Performed By: #### C BCA, CMP #### [facility] ([id number]) [address] [place] [address] 88291 Calcium [Mass/Vol] 9.5 mg/dL Normal 8.5-10.5 [facility] Comment on above: Performed By: #### C BCA, CMP #### [facility] ([id number]) [address] [place] [address] 53054 Chloride [Moles/Vol] 102 mmol/L Normal 98-109 [facility] Comment on above: Performed By: #### C BCA, CMP #### [facility] ([id number]) [address] [place] [address] 68778 CO2 [Moles/Vol] 26 mmol/L Normal 22-32 [facility] Comment on above: Performed By: #### C BCA, CMP #### [facility] ([id number]) [address] [place] [address] 73065 Creatinine [Mass/Vol] 0.71 mg/dL Normal 0.40-1.00 [facility] Comment on above: Result Comment: METH OD TRACEABLE TO IDMS STANDARD Performed By: #### C BCA, CMP #### [facility] ([id number]) [address] [place] [address] 79276 eGFR (CKD-EPI) NON-RACE DEPENDENT >90 Normal >59 [facility] Comment on above: Result Comment: Reported eGFR is based on the CKD-EPI 2020 equation that does not use a race coefficient. Performed By: #### C BCA, CMP #### [facility] ([id number]) [address] [place] [address] 28150 Glucose [Mass/Vol] 89 mg/dL Normal 65-99 [facility] Comment on above: Performed By: #### C BCA, CMP #### [facility] ([id number]) [address] [place] [address] 64812 Potassium [Moles/Vol] 3.5 mmol/L Normal 3.5-5.0 [facility] Comment on above: Performed By: #### C BCA, CMP #### [facility] ([id number]) [address] [place] [address] 10710 Protein [Mass/Vol] 7.8 g/dL Normal 6.0-8.0 [facility] Comment on above: Performed By: #### C BCA, CMP #### [facility] ([id number]) [address] [place] [address] Sodium [Moles/Vol] 136 mmol/L Normal 134-146 [facility] Comment on above: Performed By: #### C BCA, CMP #### [facility] ([id number]) [address] [place] [address] Urea nitrogen [Mass/Vol] 8 mg/dL Normal 5-23 [facility] Comment on above: Performed By: #### C BCA, CMP #### [facility] ([id number]) [address] [place] [address] CT ABDOMEN AND PELVIS W CONT on [...] Blandon MD on 09/16/2024 9:31 PM Normal [facility] URN MACROSCOPIC NURon 2024 BILIRUBIN LYNSEY Negative Normal NEG [facility] Comment on above: Performed By: #### N UM #### [facility] ([id number]) [address] [place] [address] [place] [address] BLOOD/HGB LYNSEY Trace Abnormal NEG [facility] Comment on above: Performed By: #### N UM #### [facility] ([id number]) [address] [place] [address] [place] [address] GLUCOSE LYNSEY Negative Normal NEG [facility] Comment on above: Performed By: #### N UM #### [facility] ([id number]) [address] [place] [address] [place] [address] KETONES LYNSEY Negative Normal NEG [facility] Comment on above: Performed By: #### N UM #### [facility] ([id number]) [address] [place] [address] [place] [address] LEUKOCYTE ESTERASE LYNSEY Negative Normal NEG [facility] Comment on above: Performed By: #### N UM #### [facility] ([id number]) [address] [place] [address] [place] [address] NITRITE LYNSEY Negative Normal NEG [facility] Comment on above: Performed By: #### N UM #### [facility] ([id number]) [address] [place] [address] [place] [address] PH LYNSEY 5.5 Normal 5.0-8.5 [facility] Comment on above: Performed By: #### N UM #### [facility] ([id number]) [address] [place] [address] 80601 PROTEIN LYNSEY Negative Normal NEG [facility] Comment on above: Performed By: #### N UM #### [facility] ([id number]) [address] [place] [address] [place] [address] SPECIFIC GRAVITY LYNSEY 1.020 Normal 1.003-1.035 [facility] Comment on above: Performed By: #### N UM #### [facility] ([id number]) [address] [facility], [place] [address] UROBILINOGEN LYNSEY 0.2 eu/dL Normal <1.1 [facility] Comment on above: Performed By: #### N UM #### [facility] ([id number]) [address] [facility], [place] [address] Cult,Aerobe/Anaerobeon 04-16 Cult,Aerobe/Anaerobe Specimen Descriptio n .ABDOMEN SWAB Special Requests Site: Swab Direct Exam NO NEUTROPHILS SEEN NO BACTERIA SEEN Culture NORMAL SKIN EMILIA VEILLONELLA SPECIES RARE GROWTH Identification by MALDI-TOF Report Status FINAL 04/16/[address] [facility] Comment on above: Performed By: #### C P, LIP, CDP #### [facility] [address] [place] [address] Wheel Loader Operator: Lakhwinder Tim MD Culture, Anaerobic and Aerob icon 04-16-2024 Interpretation and review of laboratory results Abnormal [facility] Microorganism identified Cx Nom (Unsp spec) NORMAL SKIN EMILIA [facility] Microorganism identified Cx Nom (Unsp spec) VEILLONELLA SPECIES RARE GROWTH Identification by MALDI-TOF Abnormal [facility] Microorganism or agent identified Nom (Unsp spec) NO NEUTROPHILS SEEN [facility] Microorganism or agent identified Nom (Unsp spec) NO BACTERIA SEEN [facility] Service comment (Unsp spec) [Interp] Site: Swab [facility] Specimen Description .ABDOMEN SWAB B on [facility] XR ABDOMEN (KUB) (SINGLE AP VIEW)on 04-16-2024 [...] Christian Ni MD 04/16/[address] [facility] XR Abdomen Single viewon Postoperative ileus. [facility] EXAMINATION: ONE SUPINE XRAY VIEW(S) OF THE [...] Within normal limits for age Other: None [facility] Christian Ni MD - 04/16/2024 EXAMINATION: [...] for age Other: None IMPRESSION: Postoperative ileus. [facility] Radiology Study observation (narrative) [facility] XR Abdomen Single viewOrdere d By: Christian Ni on 04-16-2024 [facility] Work Phone: CBC auto differentialon 03-20 Basophils (Bld) [#/Vol] [facility] Basophils/100 WBC (Bld) 0 % 0 - 2 % [facility] Eosinophils (Bld) [#/Vol] 0.33 10*3/uL [facility] Eosinophils/100 WBC (Bld) 8 % High 1 - 4 % [facility] Erythrocyte distribution width (RBC) [Ratio] 13.0 % 11.8 - 14.4 % [facility] Hematocrit (Bld) [Volume fraction] 28.5 % Low 36.3 - 47.1 % [facility] Hemoglobin (Bld) [Mass/Vol] 9.3 g/dL Low 11.9 - 15.1 g/dL [facility] Immature granulocytes (Bld) [#/Vol] [facility] Immature granulocytes/100 WBC (Bld) 0 % 0 [facility] Interpretation and review of laboratory results Abnormal [facility] Lymphocytes/100 WBC (Bld) 45 % High 24 - 43 % [facility] Lymphocytes/100 WBC (Bld) 1.87 % [facility] MCH (RBC) [Entitic mass] 28.6 pg 25.2 - 33.5 pg [facility] MCHC (RBC) [Mass/Vol] 32.6 g/dL 28.4 - 34.8 g/dL [facility] MCV (RBC) [Entitic vol] 87.7 fL 82.6 - 102.9 fL [facility] Monocytes/100 WBC (Bld) 9 % 3 - 12 % [facility] Monocytes/100 WBC (Bld) 0.39 % [facility] Neutrophils/100 WBC (Bld) 38 % 36 - 65 % [facility] Nucleated RBC/100 WBC (Bld) [Ratio] 0.0 % 0.0 per 100 WBC [facility] Platelet mean volume (Bld) [Entitic vol] 9.7 fL 8.1 - 13.5 fL [facility] Platelets (Bld) [#/Vol] 204 10*3/uL [facility] RBC (Bld) [#/Vol] 3.25 10*6/uL Low 3.95 - 5.1 1 m/uL [facility] Segmented neutrophils/100 WBC (Bld) 1.62 % [facility] WBC other (Bld) [#/Vol] 4.2 [facility] CBC with Diffon 04-15-2024 Abs. Basophil <0.03 Normal 0.00-0.20 [facility] Comment on above: Performed By: #### C DP #### [address] [place], [place] [address] Wheel Loader Operator: Lakhwinder Tim MD Abs.Imm.Granulocyte <0.03 Normal 0.00-0.30 [facility] Comment on above: Performed By: #### C DP #### [address] [place] [address] Wheel Loader Operator: Lakhwinder Tim MD Abs.Neutrophil (Seg) 1.62 k/uL Normal 1.50-8.10 [facility] Comment on above: Performed By: #### C DP #### [address] [place] [address] Wheel Loader Operator: Lakhwinder Tim MD Basophils/100 WBC (Bld) 0 % Normal 0-2 [facility] Comment on above: Performed By: #### C DP #### [address] [place], [place] [id number] Wheel Loader Operator: Lakhwinder Tim MD Eosinophils (Bld) [#/Vol] 0.33 10*3/uL Normal 0.00-0.44 [facility] Comment on above: Performed By: #### C DP #### [facility] [address] [place] [address] [place] [address] Wheel Loader Operator: Lakhwinder Tim MD Eosinophils/100 WBC (Bld) 8 % High 1-4 [facility] Comment on above: Performed By: #### C DP #### [address] [place], [place] [id number] Wheel Loader Operator: Lakhwinder Tim MD Erythrocyte distribution width (RBC) [Ratio] 13.0 % Normal 11.8-14.4 [facility] Comment on above: Performed By: #### C DP #### [facility] [address] [place] [address] [place] [address] Wheel Loader Operator: Lakhwinder Tim MD Hematocrit (Bld) [Volume fraction] 28.5 % Low 36.3-47.1 [facility] Comment on above: Performed By: #### C DP #### [facility] [address] [place] [address] Dr. [place], [facility] Wheel Loader Operator: Lakhwinder Tim MD Hemoglobin (Bld) [Mass/Vol] 9.3 g/dL Low 11.9-15.1 [facility] Comment on above: Performed By: #### C DP #### [facility] [address] [place] [address] [address] [place], [facility] Wheel Loader Operator: Lakhwinder Tim MD Immature granulocytes/100 WBC (Bld) 0 % Normal 0 [facility] Comment on above: Performed By: #### C DP #### [address] [place] [address] Wheel Loader Operator: Lakhwinder Tim MD Lymphocytes (Bld) [#/Vol] 1.87 10*3/uL Normal 1.10-3.70 [facility] Comment on above: Performed By: #### C DP #### [facility] [address] [place] [address] Dr[address] [place], [facility] Wheel Loader Operator: Lakhwinder Tim MD Lymphocytes/100 WBC (Bld) 45 % High 24-43 [facility] Comment on above: Performed By: #### C DP #### [address] [place] [address] Wheel Loader Operator: Lakhwinder Tim MD MCH (RBC) [Entitic mass] 28.6 pg Normal 25.2-33.5 [facility] Comment on above: Performed By: #### C DP #### [facility] [address] [place], [facility] Wheel Loader Operator: Lakhwinder Tim MD MCHC (RBC) [Mass/Vol] 32.6 g/dL Normal 28.4-34.8 [facility] Comment on above: Performed By: #### C DP #### [facility] [address] [place], [facility]83 Wheel Loader Operator: Lakhwinder Tim MD MCV (RBC) [Entitic vol] 87.7 fL Normal 82.6-102.9 [facility] Comment on above: Performed By: #### C DP #### [facility] [address] [place], [facility] Wheel Loader Operator: Lakhwinder Tim MD Monocytes (Bld) [#/Vol] 0.39 10*3/uL Normal 0.10-1.20 [facility] Comment on above: Performed By: #### C DP #### [facility] [address] [place], [facility] Wheel Loader Operator: Lakhwinder Tim MD Monocytes/100 WBC (Bld) 9 % Normal 3-12 [facility] Comment on above: Performed By: #### C DP #### [facility] [address] [place], [place] [address] Wheel Loader Operator: Lakhwinder Tim MD Neutrophil (Seg) 38 % Normal 36-65 [facility] Comment on above: Performed By: #### C DP #### [facility] [address] [place], [facility]83 Wheel Loader Operator: Lakhwinder Tim MD NRBC Automated 0.0 per [address] [facility] Comment on above: Performed By: #### C DP #### [facility] [address] [place] [facility] Wheel Loader Operator: Lakhwinder Tim MD Platelet mean volume (Bld) [Entitic vol] 9.7 fL Normal 8.1-13.5 [facility] Comment on above: Performed By: #### C DP #### [facility] [address] [place] [address] Wheel Loader Operator: Lakhwinder Tim MD Platelets (Bld) [#/Vol] 204 10*3/uL Normal 138-453 [facility] Comment on above: Performed By: #### C DP #### [facility] [address] [place], [place] [id number] Wheel Loader Operator: Lakhwinder Tim MD RBC (Bld) [#/Vol] 3.25 10*6/uL Low 3.95-5.11 [facility] Comment on above: Performed By: #### C DP #### [facility] [address] [place] [address] [place] [place], [place] [id number] Wheel Loader Operator: Lakhwinder Tim MD WBC (Bld) [#/Vol] 4.2 10*3/uL Normal 3.5-11.3 [facility] Comment on above: Performed By: #### C DP #### [address] [place], [place] [id number] Wheel Loader Operator: Lakhwinder Tim MD Comp Metabolic Pr/rfx MGon 1 0- Albumin [Mass/Vol] 3.2 g/dL Low 3.5-5.2 [facility] Comment on above: Performed By: #### C DP #### [facility] [address] [place], [place] [phone] Wheel Loader Operator: Lakhwinder Tim MD Albumin/Glob Ratio 1.1 Normal 1.0-2.5 [facility] Comment on above: Performed By: #### C DP #### [facility] [address] [place] [address] Wheel Loader Operator: Lakhwinder Tim MD Alkaline Phos 75 U/L Normal 35-104 [facility] Comment on above: Performed By: #### C DP #### [facility] [address] [place], [place] [phone] Wheel Loader Operator: Lakhwinder Tim MD ALT [Catalytic activity/Vol] 10 U/L Normal 10-35 [facility] Comment on above: Performed By: #### C DP #### [facility] [address] [place], [place] [phone] Wheel Loader Operator: Lakhwinder Tim MD Anion gap [Moles/Vol] 6 mmol/L Low 9-16 [facility] Comment on above: Performed By: #### C DP #### [facility] [address] [place], [place] [phone] Wheel Loader Operator: Lakhwinder Tim MD AST [Catalytic activity/Vol] 10 U/L Normal 10-35 [facility] Comment on above: Performed By: #### C DP #### [facility] [address] [place], [place] [phone] Wheel Loader Operator: Lakhwinder Tim MD Bilirubin [Mass/Vol] mg/dL Normal 0.00-1.20 [facility] Comment on above: Performed By: #### C DP #### [facility] [address] [place], [place] [phone] Wheel Loader Operator: Lakhwinder Tim MD BUN/CRE Ratio 10 Normal 9-20 [facility] Comment on above: Performed By: #### C DP #### [facility] [address] [place], [place] 1897483 Wheel Loader Operator: Lakhwinder Tim MD Calcium [Mass/Vol] 8.6 mg/dL Normal 8.6-10.4 [facility] Comment on above: Performed By: #### C DP #### [facility] [address] [place], [place] 6175683 Wheel Loader Operator: Lakhwinder Tim MD Chloride [Moles/Vol] 104 mmol/L Normal 98-107 [facility] Comment on above: Performed By: #### C DP #### [facility] [address] [place] [address] Wheel Loader Operator: Lakhwinder Tim MD CO2 [Moles/Vol] 28 mmol/L Normal 20-31 [facility] Comment on above: Performed By: #### C DP #### [facility] [address] [place] [address] Wheel Loader Operator: Lakhwinder Tim MD Creatinine [Mass/Vol] 0.5 mg/dL Normal 0.50-0.90 [facility] Comment on above: Performed By: #### C DP #### [facility] [address] [place] [address] Wheel Loader Operator: Lakhwinder Tim MD GFR/1.73 sq M.predicted among non-blacks MDRD (S/P/Bld) [Vol rate/Area] mL/min/{1.73_m2} Normal >60 [facility] Comment on above: Result Comment: These [...] secretion. Performed By: #### C DP #### [facility] [address] [place] [address] Wheel Loader Operator: Lakhwinder Tim MD Glucose [Mass/Vol] 89 mg/dL Normal 74-99 [facility] Comment on above: Performed By: #### C DP #### [facility] [address] [place] [address] Wheel Loader Operator: Lakhwinder Tim MD Potassium [Moles/Vol] 3.8 mmol/L Normal 3.7-5.3 [facility] Comment on above: Performed By: #### C DP #### [facility] [address] [place] [address] Wheel Loader Operator: Lakhwinder Tim MD Protein [Mass/Vol] 6.2 g/dL Low 6.6-8.7 [facility] Comment on above: Performed By: #### C DP #### [facility] [address] [place] [address] Wheel Loader Operator: Lakhwinedr Tim MD Sodium [Moles/Vol] 138 mmol/L Normal 136-145 [facility] Comment on above: Performed By: #### C DP #### [facility] [address] [place] [address] Wheel Loader Operator: Lakhwinder Tim MD Urea nitrogen [Mass/Vol] 5 mg/dL Low 6-20 [facility] Comment on above: Performed By: #### C DP #### [facility] [address] [place] [address] Wheel Loader Operator: Lakhwinder Tim MD Comprehensive Metabolic Pane l w/ Reflex to MGon 04-15-2024 Albumin [Mass/Vol] 3.2 g/dL Low 3.5 - 5.2 g/dL [facility] Albumin/Globulin [Mass ratio] 1.1 {ratio} 1.0 - 2.5 [facility] ALP [Catalytic activity/Vol] 75 U/L 35 - 104 U/L [facility] ALT [Catalytic activity/Vol] 10 U/L 10 - 35 U/L [facility] Anion gap [Moles/Vol] 6 mmol/L Low 9 - 16 mmol/L [facility] AST [Catalytic activity/Vol] 10 U/L 10 - 35 U/L [facility] Bilirubin [Mass/Vol] mg/dL 0.00 - 1.20 mg/dL [facility] Calcium [Mass/Vol] 8.6 mg/dL 8.6 - 10. 4 mg/dL [facility] Chloride [Moles/Vol] 104 mmol/L 98 - 10 7 mmol/L [facility] CO2 [Moles/Vol] 28 mmol/L 20 - 31 mmol/L [facility] Creatinine [Mass/Vol] 0.5 mg/dL 0.50 - 0.90 mg/dL [facility] [employer] [facility] Comment on above: These results are [...] [Mass/Vol] 89 mg/dL 74 - 99 mg/dL [facility] Interpretation and review of laboratory results Abnormal [facility] Potassium [Moles/Vol] 3.8 mmol/L 3.7 - 5.3 mmol/L [facility] Protein [Mass/Vol] 6.2 g/dL Low 6.6 - 8.7 g/dL [facility] Sodium [Moles/Vol] 138 mmol/L 136 - 145 mmol/L [facility] Urea nitrogen [Mass/Vol] 5 mg/dL Low 6 - 20 mg/dL [facility] Urea nitrogen/Creatinine [Mass ratio] 10 mg/mg 9 - 20 [facility] CBC auto differentialon -2 Basophils (Bld) [#/Vol] [facility] Basophils/100 WBC (Bld) 0 % 0 - 2 % [facility] Eosinophils (Bld) [#/Vol] 0.28 10*3/uL [facility] Eosinophils/100 WBC (Bld) 6 % High 1 - 4 % [facility] Erythrocyte distribution width (RBC) [Ratio] 13.2 % 11.8 - 14.4 % [facility] Hematocrit (Bld) [Volume fraction] 27.5 % Low 36.3 - 47.1 % [facility] Hemoglobin (Bld) [Mass/Vol] 8.8 g/dL Low 11.9 - 15.1 g/dL [facility] Immature granulocytes (Bld) [#/Vol] [facility] Immature granulocytes/100 WBC (Bld) 0 % 0 [facility] Interpretation and review of laboratory results Abnormal [facility] Lymphocytes/100 WBC (Bld) 35 % 24 - 43 % [facility] Lymphocytes/100 WBC (Bld) 1.62 % [facility] MCH (RBC) [Entitic mass] 28.2 pg 25.2 - 33.5 pg [facility] MCHC (RBC) [Mass/Vol] 32.0 g/dL 28.4 - 34.8 g/dL [facility] MCV (RBC) [Entitic vol] 88.1 fL 82.6 - 102.9 fL [facility] Monocytes/100 WBC (Bld) 10 % 3 - 12 % [facility] Monocytes/100 WBC (Bld) 0.47 % [facility] Neutrophils/100 WBC (Bld) 49 % 36 - 65 % [facility] Nucleated RBC/100 WBC (Bld) [Ratio] 0.0 % 0.0 per 100 WBC [facility] Platelet mean volume (Bld) [Entitic vol] 10.3 fL 8.1 - 13.5 fL [facility] Platelets (Bld) [#/Vol] 183 10*3/uL [facility] RBC (Bld) [#/Vol] 3.12 10*6/uL Low 3.95 - 5.1 1 m/uL [facility] Segmented neutrophils/100 WBC (Bld) 2.22 % [facility] WBC other (Bld) [#/Vol] 4.6 [facility] CBC with Diffon 04-14-2024 Abs. Basophil <0.03 Normal 0.00-0.20 [facility] Comment on above: Performed By: #### C P, LIP, CDP #### [facility] [address] [place] [address] Wheel Loader Operator: Lakhwinder Tim MD Abs.Imm.Granulocyte <0.03 Normal 0.00-0.30 [facility] Comment on above: Performed By: #### C P, LIP, CDP #### [address] [place], [facility]83 Wheel Loader Operator: Lakhwinder Tim MD Abs.Neutrophil (Seg) 2.22 k/uL Normal 1.50-8.10 [facility] Comment on above: Performed By: #### C P, LIP, CDP #### [address] [place], [facility]83 Wheel Loader Operator: Lakhwinder Tim MD Basophils/100 WBC (Bld) 0 % Normal 0-2 [facility] Comment on above: Performed By: #### C P, LIP, CDP #### [address] [place] [address] Wheel Loader Operator: Lakhwinder Tim MD Eosinophils (Bld) [#/Vol] 0.28 10*3/uL Normal 0.00-0.44 [facility] Comment on above: Performed By: #### C P LIP, CDP #### [address] [place], [facility]83 Wheel Loader Operator: Lakhwinder Tim MD Eosinophils/100 WBC (Bld) 6 % High 1-4 [facility] Comment on above: Performed By: #### C P LIP, CDP #### [address] [place], [facility]83 Wheel Loader Operator: Lakhwinder Tim MD Erythrocyte distribution width (RBC) [Ratio] 13.2 % Normal 11.8-14.4 [facility] Comment on above: Performed By: #### C P, LIP, CDP #### [address] [place] [address] Wheel Loader Operator: Lakhwinder Tim MD Hematocrit (Bld) [Volume fraction] 27.5 % Low 36.3-47.1 [facility] Comment on above: Performed By: #### C P, LIP, CDP #### [facility] [address] [place], [place] [address] Wheel Loader Operator: Lakhwinder Tim MD Hemoglobin (Bld) [Mass/Vol] 8.8 g/dL Low 11.9-15.1 [facility] Comment on above: Performed By: #### C P, LIP, CDP #### [address] [place], [place] [address] Wheel Loader Operator: Lakhwinder Tim MD Immature granulocytes/100 WBC (Bld) 0 % Normal 0 [facility] Comment on above: Performed By: #### C P, LIP, CDP #### [address] [place], [place] [address] Wheel Loader Operator: Lakhwinder Tim MD Lymphocytes (Bld) [#/Vol] 1.62 10*3/uL Normal 1.10-3.70 [facility] Comment on above: Performed By: #### C P, LIP, CDP #### [address] [place], [place] [address] Wheel Loader Operator: Lakhwinder Tim MD Lymphocytes/100 WBC (Bld) 35 % Normal 24-43 [facility] Comment on above: Performed By: #### C P, LIP, CDP #### [address] [place], [place] [address] Wheel Loader Operator: Lakhwinder Tim MD MCH (RBC) [Entitic mass] 28.2 pg Normal 25.2-33.5 [facility] Comment on above: Performed By: #### C P, LIP, CDP #### [address] [place] [address] Wheel Loader Operator: Lakhwinder Tim MD MCHC (RBC) [Mass/Vol] 32.0 g/dL Normal 28.4-34.8 [facility] Comment on above: Performed By: #### C P, LIP, CDP #### [facility] [address] [place], [place] [phone] Wheel Loader Operator: Lakhwinder Tim MD MCV (RBC) [Entitic vol] 88.1 fL Normal 82.6-102.9 [facility] Comment on above: Performed By: #### C P, LIP, CDP #### [facility] [address] [place], [place] [phone] Wheel Loader Operator: Lakhwinder Tim MD Monocytes (Bld) [#/Vol] 0.47 10*3/uL Normal 0.10-1.20 [facility] Comment on above: Performed By: #### C P, LIP, CDP #### [address] [place], [place] 1869783 Wheel Loader Operator: Lakhwinder Tim MD Monocytes/100 WBC (Bld) 10 % Normal 3-12 [facility] Comment on above: Performed By: #### C P, LIP, CDP #### [address] [place], [place] 7504683 Wheel Loader Operator: Lakhwinder Tim MD Neutrophil (Seg) 49 % Normal 36-65 [facility] Comment on above: Performed By: #### C P, LIP, CDP #### [address] [place] [address] Wheel Loader Operator: Lakhwinder Tim MD NRBC Automated 0.0 per [address] [facility] Comment on above: Performed By: #### C P, LIP, CDP #### [facility] [address] [place] [address] Wheel Loader Operator: Lakhwinder Tim MD Platelet mean volume (Bld) [Entitic vol] 10.3 fL Normal 8.1-13.5 [facility] Comment on above: Performed By: #### C P, LIP, CDP #### [address] [place], [place] 0707383 Wheel Loader Operator: Lakhwinder Tim MD Platelets (Bld) [#/Vol] 183 10*3/uL Normal 138-453 [facility] Comment on above: Performed By: #### C P, LIP, CDP #### [facility] [address] [place], [place] [phone] Wheel Loader Operator: Lakhwinder Tim MD RBC (Bld) [#/Vol] 3.12 10*6/uL Low 3.95-5.11 [facility] Comment on above: Performed By: #### C P, LIP, CDP #### [facility] [address] [place], [place] [phone] Wheel Loader Operator: Lakhwinder Tim MD WBC (Bld) [#/Vol] 4.6 10*3/uL Normal 3.5-11.3 [facility] Comment on above: Performed By: #### C P, LIP, CDP #### [facility] [address] [place], [place] 8309783 Wheel Loader Operator: Lakhwinder Tim MD Comp Metabolic Pr/rfx MGon 1 0- Albumin [Mass/Vol] 3.1 g/dL Low 3.5-5.2 [facility] Comment on above: Performed By: #### C P, LIP, CDP #### [facility] [address] [place] [address] Wheel Loader Operator: Lakhwinder Tim MD Albumin/Glob Ratio 1.1 Normal 1.0-2.5 [facility] Comment on above: Performed By: #### C P, LIP, CDP #### [facility] [address] [place] [address] Wheel Loader Operator: Lakhwinder Tim MD Alkaline Phos 62 U/L Normal 35-104 [facility] Comment on above: Performed By: #### C P, LIP, CDP #### [facility] [address] [place], [place] 4771583 Wheel Loader Operator: Lakhwinder Tim MD ALT [Catalytic activity/Vol] 11 U/L Normal -35 [facility] Comment on above: Performed By: #### C P, LIP, CDP #### [facility] [address] [place], [place] 6383583 Wheel Loader Operator: Lakhwinder Tim MD Anion gap [Moles/Vol] 8 mmol/L Low 9-16 [facility] Comment on above: Performed By: #### C P, LIP, CDP #### [facility] [address] [place], [place] 505[address]83 Wheel Loader Operator: Lakhwinder Tim MD AST [Catalytic activity/Vol] 12 U/L Normal -35 [facility] Comment on above: Performed By: #### C P, LIP, CDP #### [facility] [address] [place], [place] 5649383 Wheel Loader Operator: Lakhwinder Tim MD Bilirubin [Mass/Vol] 0.3 mg/dL Normal 0.00-1.20 [facility] Comment on above: Performed By: #### C P, LIP, CDP #### [facility] [address] [place] [address] [place], [place] 1065383 Wheel Loader Operator: Lakhwinder Tim MD BUN/CRE Ratio 10 Normal 9-20 [facility] Comment on above: Performed By: #### C P, LIP, CDP #### [facility] [address] [place], [place] 7696683 Wheel Loader Operator: Lakhwinder Tim MD Calcium [Mass/Vol] 8.4 mg/dL Low 8.6-10.4 [facility] Comment on above: Performed By: #### C P, LIP, CDP #### [facility] [address] [place] [address] [place] [place], [place] 5153283 Wheel Loader Operator: Lakhwinder Tim MD Chloride [Moles/Vol] 104 mmol/L Normal 98-107 [facility] Comment on above: Performed By: #### C P, LIP, CDP #### [facility] [address] [place] [address] Wheel Loader Operator: Lakhwinder Tim MD CO2 [Moles/Vol] 27 mmol/L Normal 20-31 [facility] Comment on above: Performed By: #### C P, LIP, CDP #### [facility] [address] [place] [address] Wheel Loader Operator: Lakhwinder Tim MD Creatinine [Mass/Vol] 0.4 mg/dL Low 0.50-0.90 [facility] Comment on above: Performed By: #### C P LIP, CDP #### [facility] [address] [place] [address] Wheel Loader Operator: Lakhwinder Tim MD GFR/1.73 sq M.predicted among non-blacks MDRD (S/P/Bld) [Vol rate/Area] mL/min/{1.73_m2} Normal >60 [facility] Comment on above: Result Comment: These [...] By: #### C P, LIP, CDP #### [facility] [address] [place] [address] Wheel Loader Operator: Lakhwinder Tim MD Glucose [Mass/Vol] 93 mg/dL Normal 74-99 [facility] Comment on above: Performed By: #### C P, LIP, CDP #### [facility] [address] [place] [address] Wheel Loader Operator: Lakhwinder Tim MD Potassium [Moles/Vol] 3.4 mmol/L Low 3.7-5.3 [facility] Comment on above: Performed By: #### C P, LIP, CDP #### [facility] [address] [place], [place] 487[address]83 Wheel Loader Operator: Lakhwinder Tim MD Protein [Mass/Vol] 5.9 g/dL Low 6.6-8.7 [facility] Comment on above: Performed By: #### C P, LIP, CDP #### [facility] [address] [place], [place] [phone] Wheel Loader Operator: Lakhwinder Tim MD Sodium [Moles/Vol] 139 mmol/L Normal 136-145 [facility] Comment on above: Performed By: #### C P, LIP, CDP #### [facility] [address] [place], [place] 1490283 Wheel Loader Operator: Lakhwinder Tim MD Urea nitrogen [Mass/Vol] 4 mg/dL Low 6-20 [facility] Comment on above: Performed By: #### C P, LIP, CDP #### [facility] [address] [place] [address] Wheel Loader Operator: Lakhwinder Tim MD Comprehensive Metabolic Pane l w/ Reflex to on 04-14-2024 Albumin [Mass/Vol] 3.1 g/dL Low 3.5 - 5.2 g/dL [facility] Albumin/Globulin [Mass ratio] 1.1 {ratio} 1.0 - 2.5 [facility] ALP [Catalytic activity/Vol] 62 U/L 35 - 104 U/L [facility] ALT [Catalytic activity/Vol] 11 U/L 10 - 35 U/L [facility] Anion gap [Moles/Vol] 8 mmol/L Low 9 - 16 mmol/L [facility] AST [Catalytic activity/Vol] 12 U/L 10 - 35 U/L [facility] Bilirubin [Mass/Vol] 0.3 mg/dL 0.00 - 1.20 mg/dL [facility] Calcium [Mass/Vol] 8.4 mg/dL Low 8.6 - 10. 4 mg/dL [facility] Chloride [Moles/Vol] 104 mmol/L 98 - 10 7 mmol/L [facility] CO2 [Moles/Vol] 27 mmol/L 20 - 31 mmol/L [facility] Creatinine [Mass/Vol] 0.4 mg/dL Low 0.50 - 0.90 mg/dL [facility] Est, [employer] [facility] Comment on above: These results are [...] [Mass/Vol] 93 mg/dL 74 - 99 mg/dL [facility] Interpretation and review of laboratory results Abnormal [facility] Potassium [Moles/Vol] 3.4 mmol/L Low 3.7 - 5.3 mmol/L [facility] Protein [Mass/Vol] 5.9 g/dL Low 6.6 - 8.7 g/dL [facility] Sodium [Moles/Vol] 139 mmol/L 136 - 145 mmol/L [facility] Urea nitrogen [Mass/Vol] 4 mg/dL Low 6 - 20 mg/dL [facility] Urea nitrogen/Creatinine [Mass ratio] 10 mg/mg 9 - 20 [facility] Magnesiumon 04-14-2024 Magnesium [Mass/Vol] 1.7 mg/dL 1.6 - 2 .6 mg/dL [facility] Magnesium [Mass/Vol] 1.7 mg/dL Normal 1.6-2.6 [facility] Comment on above: Performed By: #### C PTOM CDP #### [facility] [address] [place] [address] Wheel Loader Operator: Lakhwinder Tim MD XR ABDOMEN (KUB) [...] Olsen IV, MD 04/14/[address] [facility] XR Abdomen Single viewon Nonspecific, nonobstructed bowel gas pattern. [facility] RIS CONSOLIDATED EXAMINATION: ONE SUPINE XRAY VIEW(S) OF THE ABDOMEN 04/14/2024 5:23 pm COMPARISON: 04/13/2024 radiograph HISTORY: ORDERING SYSTEM PROVIDED HISTORY: Abd pain TECHNOLOGIST PROVIDED HISTORY: Abd pain FINDINGS: Limited visualization of the abdomen in field of view of this portable study. Nonspecific, nonobstructed bowel gas pattern. No abnormal soft tissue mass or calcification. No significant skeletal finding. [facility] CONSOLIDATED Asim Olsen IV, MD [...] finding. IMPRESSION: Nonspecific, nonobstructed bowel gas pattern. [facility] Radiology Study observation (narrative) [facility] XR Abdomen Single viewOrdere d By: Asim Olsen on 04-14-2024 [facility] Work Phone: CBC auto differentialon 03-20 Basophils (Bld) [#/Vol] [facility] Basophils/100 WBC (Bld) 0 % 0 - 2 % [facility] Eosinophils (Bld) [#/Vol] 0.10 10*3/uL [facility] Eosinophils/100 WBC (Bld) 2 % 1 - 4 % [facility] Erythrocyte distribution width (RBC) [Ratio] 13.4 % 11.8 - 14.4 % [facility] Hematocrit (Bld) [Volume fraction] 29.0 % Low 36.3 - 47.1 % [facility] Hemoglobin (Bld) [Mass/Vol] 9.3 g/dL Low 11.9 - 15.1 g/dL [facility] Immature granulocytes (Bld) [#/Vol] [facility] Immature granulocytes/100 WBC (Bld) 0 % 0 [facility] Interpretation and review of laboratory results Abnormal [facility] Lymphocytes/100 WBC (Bld) 25 % 24 - 43 % [facility] Lymphocytes/100 WBC (Bld) 1.44 % [facility] MCH (RBC) [Entitic mass] 28.2 pg 25.2 - 33.5 pg [facility] MCHC (RBC) [Mass/Vol] 32.1 g/dL 28.4 - 34.8 g/dL [facility] MCV (RBC) [Entitic vol] 87.9 fL 82.6 - 102.9 fL [facility] Monocytes/100 WBC (Bld) 11 % 3 - 12 % [facility] Monocytes/100 WBC (Bld) 0.64 % [facility] Neutrophils/100 WBC (Bld) 62 % 36 - 65 % [facility] Nucleated RBC/100 WBC (Bld) [Ratio] 0.0 % 0.0 per 100 WBC [facility] Platelet mean volume (Bld) [Entitic vol] 10.5 fL 8.1 - 13.5 fL [facility] Platelets (Bld) [#/Vol] 159 10*3/uL [facility] RBC (Bld) [#/Vol] 3.30 10*6/uL Low 3.95 - 5.1 1 m/uL [facility] Segmented neutrophils/100 WBC (Bld) 3.49 % [facility] WBC other (Bld) [#/Vol] 5.7 Bon [facility] Bon [facility] CBC with Diffon 04-13-2024 Abs. Basophil <0.03 Normal 0.00-0.20 [facility] Comment on above: Performed By: #### C P, LIP, CDP #### [facility] [address] [place], [place] [address]83 Wheel Loader Operator: Lakhwinder Tim MD Abs.Imm.Granulocyte <0.03 Normal 0.00-0.30 [facility] Comment on above: Performed By: #### C P, LIP, CDP #### [address] [place] [id number] Wheel Loader Operator: Lakhwinder Tim MD Abs.Neutrophil (Seg) 3.49 k/uL Normal 1.50-8.10 [facility] Comment on above: Performed By: #### C P, LIP, CDP #### [facility] [address] [place] [address] Dr. [place], [facility]83 Wheel Loader Operator: Lakhwinder Tim MD Basophils/100 WBC (Bld) 0 % Normal 0-2 [facility] Comment on above: Performed By: #### C P, LIP, CDP #### [address] [place] [id number] Wheel Loader Operator: Lakhwinder Tim MD Eosinophils (Bld) [#/Vol] 0.10 10*3/uL Normal 0.00-0.44 [facility] Comment on above: Performed By: #### C P, LIP, CDP #### [facility] [address] [place], [place] [phone] Wheel Loader Operator: Lakhwinder Tim MD Eosinophils/100 WBC (Bld) 2 % Normal 1-4 [facility] [facility] Comment on above: Performed By: #### C P, LIP, CDP #### [facility] [address] [place], [facility]83 [employer] Operator: Lakhwinder Tim MD Erythrocyte distribution width (RBC) [Ratio] 13.4 % Normal 11.8-14.4 [facility] Comment on above: Performed By: #### C P, LIP, CDP #### [facility] [address] [place], [place] [id number] [employer] Operator: Lakhwinder Tim MD Hematocrit (Bld) [Volume fraction] 29.0 % Low 36.3-47.1 [facility] Comment on above: Performed By: #### C P, LIP, CDP #### [facility] [address] [place], [place] 750[address]83 [employer] Operator: Lakhwinder Tim MD Hemoglobin (Bld) [Mass/Vol] 9.3 g/dL Low 11.9-15.1 [facility] Comment on above: Performed By: #### C P, LIP, CDP #### [facility] [address] [place], [place] [address] [employer] Operator: Lakhwinder Tim MD Immature granulocytes/100 WBC (Bld) 0 % Normal 0 [facility] Comment on above: Performed By: #### C P, LIP, CDP #### [facility] [address] [place], [place] [id number] [employer] Operator: Lakhwinder Tim MD Lymphocytes (Bld) [#/Vol] 1.44 10*3/uL Normal 1.10-3.70 [facility] Comment on above: Performed By: #### C P, LIP, CDP #### [facility] [address] [place] [address] [employer] Operator: Lakhwinder Tim MD Lymphocytes/100 WBC (Bld) 25 % Normal 24-43 [facility] Comment on above: Performed By: #### C P, LIP, CDP #### [facility] [address] [place], [place] [id number] [employer] Operator: Lakhwinder Tim MD MCH (RBC) [Entitic mass] 28.2 pg Normal 25.2-33.5 [facility] Comment on above: Performed By: #### C P, LIP, CDP #### [address] [place], [place] 2225583 [employer] Operator: Lakhwinder Tim MD MCHC (RBC) [Mass/Vol] 32.1 g/dL Normal 28.4-34.8 [facility] Comment on above: Performed By: #### C P, LIP, CDP #### [address] [place] [address] [employer] Operator: Lakhwinder Tim MD MCV (RBC) [Entitic vol] 87.9 fL Normal 82.6-102.9 [facility] Comment on above: Performed By: #### C P, LIP, CDP #### [address] [place], [facility]83 [employer] Operator: Lakhwinder Tim MD Monocytes (Bld) [#/Vol] 0.64 10*3/uL Normal 0.10-1.20 [facility] Comment on above: Performed By: #### C P, LIP, CDP #### [address] [place], [place] 7787383 [employer] Operator: Lakhwinder Tim MD Monocytes/100 WBC (Bld) 11 % Normal 3-12 [facility] Comment on above: Performed By: #### C P, LIP, CDP #### [address] [place], [place] [phone] [employer] Operator: Lakhwinder Tim MD Neutrophil (Seg) 62 % Normal 36-65 [facility] Comment on above: Performed By: #### C P, LIP, CDP #### [address] [place] [address] Wheel [employer] Operator: Lakhwinder Tim MD NRBC Automated 0.0 per [address] [facility] Comment on above: Performed By: #### C P, LIP, CDP #### [facility] [address] [place], [place] 47[address]83 [employer] Operator: Lakhwinder Tim MD Platelet mean volume (Bld) [Entitic vol] 10.5 fL Normal 8.1-13.5 [facility] Comment on above: Performed By: #### C P, LIP, CDP #### [facility] [address] [place], [place] 7177183 [employer] Operator: Lakhwinder Tim MD Platelets (Bld) [#/Vol] 159 10*3/uL Normal 138-453 [facility] Comment on above: Performed By: #### C P, LIP, CDP #### [address] [place], [place] 5277683 Wheel [employer] Operator: Lakhwinder Tim MD RBC (Bld) [#/Vol] 3.30 10*6/uL Low 3.95-5.11 [facility] Comment on above: Performed By: #### C P, LIP, CDP #### [address] [place], [place] 4783783 [employer] Operator: Lakhwinder Tim MD WBC (Bld) [#/Vol] 5.7 10*3/uL Normal 3.5-11.3 [facility] Comment on above: Performed By: #### C P, LIP, CDP #### [address] [place], [place] 039[address]83 [employer] Operator: Lakhwinder Tim MD Comp Metabolic Pr/rfx MGon 1 0- Albumin [Mass/Vol] 3.2 g/dL Low 3.5-5.2 [facility] Comment on above: Performed By: #### C P, LIP, CDP #### [facility] [address] [place], [place] 5918783 Wheel [employer] Operator: Lakhwinder Tim MD Albumin/Glob Ratio 1.2 Normal 1.0-2.5 [facility] Comment on above: Performed By: #### C P, LIP, CDP #### [facility] [address] [place], [place] 696[address]83 [employer] Operator: Lakhwinder Tim MD Alkaline Phos 46 U/L Normal 35-104 [facility] Comment on above: Performed By: #### C P, LIP, CDP #### [facility] [address] [place], [place] 6424083 Wheel [employer] Operator: Lakhwinder Tim MD ALT [Catalytic activity/Vol] 9 U/L Low 10-35 [facility] Comment on above: Performed By: #### C P, LIP, CDP #### [facility] [address] [place], [place] 028[address]83 [employer] Operator: Lakhwinder Tim MD Anion gap [Moles/Vol] 9 mmol/L Normal 9-16 [facility] Comment on above: Performed By: #### C P, LIP, CDP #### [facility] [address] [place], [place] 6752083 Wheel [employer] Operator: Lakhwinder Tim MD AST [Catalytic activity/Vol] 11 U/L Normal 10-35 [facility] Comment on above: Performed By: #### C P, LIP, CDP #### [facility] [address] [place], [place] 5749083 Wheel [employer] Operator: Lakhwinder Tim MD Bilirubin [Mass/Vol] 0.4 mg/dL Normal 0.00-1.20 [facility] Comment on above: Performed By: #### C P, LIP, CDP #### [facility] [address] [place], [place] 087[address]83 Wheel [employer] Operator: Lakhwinder Tim MD BUN/CRE Ratio 15 Normal 9-20 [facility] Comment on above: Performed By: #### C P, LIP, CDP #### [facility] [address] [place], [place] 27[address]83 Wheel [employer] Operator: Lakhwinder Tim MD Calcium [Mass/Vol] 8.4 mg/dL Low 8.6-10.4 [facility] Comment on above: Performed By: #### C P, LIP, CDP #### [facility] [address] [place], [place] 505[address]83 Wheel [employer] Operator: Lakhwinder Tim MD Chloride [Moles/Vol] 104 mmol/L Normal 98-107 [facility] Comment on above: Performed By: #### C P, LIP, CDP #### [facility] [address] [place] [address] Wheel [employer] Operator: Lakhwinder Tim MD CO2 [Moles/Vol] 26 mmol/L Normal 20-31 [facility] Comment on above: Performed By: #### C P, LIP, CDP #### [facility] [address] [place], [place] [address] Wheel [employer] Operator: Lakhwinder Tim MD Creatinine [Mass/Vol] 0.4 mg/dL Low 0.50-0.90 [facility] Comment on above: Performed By: #### C P, LIP, CDP #### [facility] [address] [place], [place] 7308183 [employer] Operator: Lakhwinder Tim MD GFR/1.73 sq M.predicted among non-blacks MDRD (S/P/Bld) [Vol rate/Area] mL/min/{1.73_m2} Normal >60 [facility] Comment on above: Result Comment: These [...] By: #### C P, LIP, CDP #### [facility] [address] [place], [place] 448[address]83 Wheel [employer] Operator: Lakhwinder Tim MD Glucose [Mass/Vol] 95 mg/dL Normal 74-99 [facility] Comment on above: Performed By: #### C P, LIP, CDP #### [facility] [address] [place], [place] 8275283 Wheel [employer] Operator: Lakhwinder Tim MD Potassium [Moles/Vol] 3.3 mmol/L Low 3.7-5.3 [facility] Comment on above: Performed By: #### C P, LIP, CDP #### [facility] [address] [place], [place] 6589283 Wheel [employer] Operator: Lakhwinder Tim MD Protein [Mass/Vol] 5.9 g/dL Low 6.6-8.7 [facility] Comment on above: Performed By: #### C P, LIP, CDP #### [facility] [address] [place], [place] 5757483 Wheel [employer] Operator: Lakhwinder Tim MD Sodium [Moles/Vol] 139 mmol/L Normal 136-145 [facility] Comment on above: Performed By: #### C P, LIP, CDP #### [facility] [address] [place], [place] 8173783 Wheel [employer] Operator: Lakhwinder Tim MD Urea nitrogen [Mass/Vol] 6 mg/dL Normal 6-20 [facility] Comment on above: Performed By: #### C P, LIP, CDP #### [facility] [address] [place], [place] 605[address]83 [employer] Operator: Lakhwinder Tim MD Comprehensive Metabolic Pane l w/ Reflex to MGon 04-13-2024 Albumin [Mass/Vol] 3.2 g/dL Low 3.5 - 5.2 g/dL [facility] Albumin/Globulin [Mass ratio] 1.2 {ratio} 1.0 - 2.5 [facility] ALP [Catalytic activity/Vol] 46 U/L 35 - 104 U/L [facility] ALT [Catalytic activity/Vol] 9 U/L Low 10 - 35 U/L [facility] Anion gap [Moles/Vol] 9 mmol/L 9 - 16 mmol/L [facility] AST [Catalytic activity/Vol] 11 U/L 10 - 35 U/L [facility] Bilirubin [Mass/Vol] 0.4 mg/dL 0.00 - 1.20 mg/dL [facility] Calcium [Mass/Vol] 8.4 mg/dL Low 8.6 - 10. 4 mg/dL [facility] Chloride [Moles/Vol] 104 mmol/L 98 - 10 7 mmol/L [facility] CO2 [Moles/Vol] 26 mmol/L 20 - 31 mmol/L [facility] Creatinine [Mass/Vol] 0.4 mg/dL Low 0.50 - 0.90 mg/dL [facility] Est, Glom Deyvit Rate - PINF [facility] Comment on above: These results are [...] [Mass/Vol] 95 mg/dL 74 - 99 mg/dL [facility] Interpretation and review of laboratory results Abnormal [facility] Potassium [Moles/Vol] 3.3 mmol/L Low 3.7 - 5.3 mmol/L [facility] Protein [Mass/Vol] 5.9 g/dL Low 6.6 - 8.7 g/dL [facility] Sodium [Moles/Vol] 139 mmol/L 136 - 145 mmol/L [facility] Urea nitrogen [Mass/Vol] 6 mg/dL 6 - 20 mg/dL [facility] Urea nitrogen/Creatinine [Mass ratio] 15 mg/mg 9 - 20 [facility] Magnesiumon 04-13-2024 Magnesium [Mass/Vol] 1.6 mg/dL 1.6 - 2 .6 mg/dL [facility] Magnesium [Mass/Vol] 1.6 mg/dL Normal 1.6-2.6 [facility] Comment on above: Performed By: #### C P, TOM, TOMAS #### [facility] [address] [place] [address] Wheel [employer] Operator: Lakhwinder Tim MD XR ABDOMEN (KUB) (SINGLE AP VIEW)on 04-13-2024 XR ABDOMEN (KUB) (SINGLE AP VIEW) EXAMINATION: ONE SUPINE XRAY VIEW(S) OF THE ABDOMEN 04/13/2024 7:21 am COMPARISON: [employer] film of a CT abdomen of 10 [...] Maeve Price MD 04/13/[address] [facility] XR Abdomen Single viewon 1. Nonobstructive uriel wel gas pattern. 2. Mildly increased colonic gas likely related to minimal ileus. [facility] RIS CONSOLIDATED EXAMINATION: ONE SUPINE XRAY VIEW(S) OF THE ABDOMEN 04/13/2024 7:21 am COMPARISON: [employer] Operator film of a CT abdomen of 10 [...] OF THE ABDOMEN 04/13/2024 7:21 am COMPARISON: [employer] Operator film of a CT abdomen of 10 [...] colonic gas likely related to minimal ileus. [facility] Radiology Study observation (narrative) [facility] XR Abdomen Single viewOrdere d By: Maeve Price on 04-13-2024 [facility] [employer] Work Phone: CBC auto differentialon 03-20 Basophils (Bld) [#/Vol] [facility] Basophils/100 WBC (Bld) 0 % 0 - 2 % [facility] Eosinophils (Bld) [#/Vol] [facility] Eosinophils/100 WBC (Bld) 0 % Low 1 - 4 % [facility] Erythrocyte distribution width (RBC) [Ratio] 13.4 % 11.8 - 14.4 % [facility] Hematocrit (Bld) [Volume fraction] 28.0 % Low 36.3 - 47.1 % [facility] Hemoglobin (Bld) [Mass/Vol] 8.9 g/dL Low 11.9 - 15.1 g/dL [facility] Immature granulocytes (Bld) [#/Vol] [facility] Immature granulocytes/100 WBC (Bld) 0 % 0 [facility] Interpretation and review of laboratory results Abnormal [facility] Lymphocytes/100 WBC (Bld) 33 % 24 - 43 % [facility] Lymphocytes/100 WBC (Bld) 2.08 % [facility] MCH (RBC) [Entitic mass] 28.1 pg 25.2 - 33.5 pg [facility] MCHC (RBC) [Mass/Vol] 31.8 g/dL 28.4 - 34.8 g/dL [facility] MCV (RBC) [Entitic vol] 88.3 fL 82.6 - 102.9 fL [facility] Monocytes/100 WBC (Bld) 9 % 3 - 12 % [facility] Monocytes/100 WBC (Bld) 0.55 % [facility] Neutrophils/100 WBC (Bld) 58 % 36 - 65 % [facility] Nucleated RBC/100 WBC (Bld) [Ratio] 0.0 % 0.0 per 100 WBC [facility] Platelet mean volume (Bld) [Entitic vol] 10.7 fL 8.1 - 13.5 fL [facility] Platelets (Bld) [#/Vol] 139 10*3/uL [facility] RBC (Bld) [#/Vol] 3.17 10*6/uL Low 3.95 - 5.1 1 m/uL [facility] Segmented neutrophils/100 WBC (Bld) 3.71 % [facility] WBC other (Bld) [#/Vol] 6.4 [facility] CBC with Diffon 04-12-2024 Abs. Basophil <0.03 Normal 0.00-0.20 [facility] Comment on above: Performed By: #### C DP #### [facility] [address] [place] [address] [place] [address] Wheel [employer] Operator: Lakhwinder Tim MD Abs. Eosinophil <0.03 Normal 0.00-0.44 [facility] Comment on above: Performed By: #### C DP #### [facility] [address] [place], [place] 4979883 Wheel Loader Operator: Lakhwinder Tim MD Abs.Imm.Granulocyte <0.03 Normal 0.00-0.30 [facility] Comment on above: Performed By: #### C DP #### [facility] [address] [place], [place] 4104683 Wheel [employer]er Operator: Lakhwinder Tim MD Abs.Neutrophil (Seg) 3.71 k/uL Normal 1.50-8.10 [facility] Comment on above: Performed By: #### C DP #### [facility] [address] [place] [address] Wheel Load[employer] Operator: Lakhwinder Tim MD Basophils/100 WBC (Bld) 0 % Normal 0-2 [facility] Comment on above: Performed By: #### C DP #### [facility] [address] [place] [address] [place] [phone] Wheel Load[employer] Operator: Lakhwinder Tim MD Eosinophils/100 WBC (Bld) 0 % Low 1-4 [facility] Comment on above: Performed By: #### C DP #### [facility] [address] [place] [address] [place] [phone] Wheel [employer] Operator: Lakhwinder Tim MD Erythrocyte distribution width (RBC) [Ratio] 13.4 % Normal 11.8-14.4 [facility] Comment on above: Performed By: #### C DP #### [address] [place] [phone] Wheel [employer] Operator: Lakhwinder Tim MD Hematocrit (Bld) [Volume fraction] 28.0 % Low 36.3-47.1 [facility] Comment on above: Performed By: #### C DP #### [address] [place] [address] Wheel Load[employer] Operator: Lakhwinder Tim MD Hemoglobin (Bld) [Mass/Vol] 8.9 g/dL Low 11.9-15.1 [facility] Comment on above: Performed By: #### C DP #### [address] [place], [place] [address] Wheel Load[employer] Operator: Lakhwinder Tim MD Immature granulocytes/100 WBC (Bld) 0 % Normal 0 [facility] Comment on above: Performed By: #### C DP #### [address] [place] [address]483 Wheel Loader Operator: Lakhwinder Tim MD Lymphocytes (Bld) [#/Vol] 2.08 10*3/uL Normal 1.10-3.70 [facility] Comment on above: Performed By: #### C DP #### [facility] [address] [place], [place] 8550383 Wheel [employer] Operator: Lakhwinder Tim MD Lymphocytes/100 WBC (Bld) 33 % Normal 24-43 [facility] Comment on above: Performed By: #### C DP #### [facility] [address] [place] [facility]83 Wheel Loader Operator: Lakhwinder Tim MD MCH (RBC) [Entitic mass] 28.1 pg Normal 25.2-33.5 [facility] Comment on above: Performed By: #### C DP #### [address] [place] [phone] Wheel Loader Operator: Lakhwinder Tim MD MCHC (RBC) [Mass/Vol] 31.8 g/dL Normal 28.4-34.8 [facility] Comment on above: Performed By: #### C DP #### [address] [place], [facility]83 Wheel Loader Operator: Lakhwinder Tim MD MCV (RBC) [Entitic vol] 88.3 fL Normal 82.6-102.9 [facility] Comment on above: Performed By: #### C DP #### [address] [place], [facility]83 Wheel Loader Operator: Lakhwinder Tim MD Monocytes (Bld) [#/Vol] 0.55 10*3/uL Normal 0.10-1.20 [facility] Comment on above: Performed By: #### C DP #### [facility] [address] [place], [place] 3025083 Wheel Loader Operator: Lakhwinder Tim MD Monocytes/100 WBC (Bld) 9 % Normal 3-12 [facility] Comment on above: Performed By: #### C DP #### [facility] [address] [place], [facility]83 Wheel Load[employer] Operator: Lakhwinder Tim MD Neutrophil (Seg) 58 % Normal 36-65 [facility] Comment on above: Performed By: #### C DP #### [facility] [address] [place], [place] 3112383 Wheel [employer] Operator: Lakhwinder Tim MD NRBC Automated 0.0 per [address] [facility] Comment on above: Performed By: #### C DP #### [facility] [address] [place], [place] 866[address]83 Wheel [employer] Operator: Lakhwinder Tim MD Platelet mean volume (Bld) [Entitic vol] 10.7 fL Normal 8.1-13.5 [facility] Comment on above: Performed By: #### C DP #### [facility] [address] [place], [facility]83 Wheel [employer] Operator: Lakhwinder Tim MD Platelets (Bld) [#/Vol] 139 10*3/uL Normal 138-453 [facility] Comment on above: Performed By: #### C DP #### [facility] [address] [place], [place] [address]83 Wheel [employer] Operator: Lakhwinder Tim MD RBC (Bld) [#/Vol] 3.17 10*6/uL Low 3.95-5.11 [facility] Comment on above: Performed By: #### C DP #### [facility] [address] [place] [address] Wheel [employer] Operator: Lakhwinder Tim MD WBC (Bld) [#/Vol] 6.4 10*3/uL Normal 3.5-11.3 [facility] Comment on above: Performed By: #### C DP #### [facility] [address] [place] [address] Wheel [employer] Operator: Lakhwinder Tim MD Comp Metabolic Pr/rfx MGon 1 0- Albumin [Mass/Vol] 3.1 g/dL Low 3.5-5.2 [facility] Comment on above: Performed By: #### C DP #### [facility] [address] [place], [place] 4908083 Wheel [employer] Operator: Lakhwinder Tim MD Albumin/Glob Ratio 1.2 Normal 1.0-2.5 [facility] Comment on above: Performed By: #### C DP #### [facility] [address] [place], [place] 1107383 Wheel [employer] Operator: Lakhwinder Tim MD Alkaline Phos 41 U/L Normal 35-104 [facility] Comment on above: Performed By: #### C DP #### [facility] [address] [place], [place] 332[address]83 Wheel [employer] Operator: Lakhwinder Tim MD ALT [Catalytic activity/Vol] 11 U/L Normal 10-35 [facility] Comment on above: Performed By: #### C DP #### [facility] [address] [place], [place] 058[address]83 [employer] Operator: Lakhwinder Tim MD Anion gap [Moles/Vol] 9 mmol/L Normal 9-16 [facility] Comment on above: Performed By: #### C DP #### [facility] [address] [place] [address] [place] [place], [place] 5834283 Wheel [employer] Operator: Lakhwinder Tim MD AST [Catalytic activity/Vol] 9 U/L Low 10-35 [facility] Comment on above: Performed By: #### C DP #### [facility] [address] [place] [address] Wheel [employer] Operator: Lakhwinder Tim MD Bilirubin [Mass/Vol] 0.3 mg/dL Normal 0.00-1.20 [facility] Comment on above: Performed By: #### C DP #### [facility] [address] [place], [place] 8228083 [employer] Operator: Lakhwinder Tim MD BUN/CRE Ratio 24 High 9-20 [facility] Comment on above: Performed By: #### C DP #### [facility] [address] [place] [address] Wheel [employer] Operator: Lakhwinder Tim MD Calcium [Mass/Vol] 8.2 mg/dL Low 8.6-10.4 [facility] Comment on above: Performed By: #### C DP #### [facility] [address] [place], [place] 6744883 Wheel [employer] Operator: Lakhwinder Tim MD Chloride [Moles/Vol] 106 mmol/L Normal 98-107 [facility] Comment on above: Performed By: #### C DP #### [facility] [address] [place], [place] 3576083 Wheel [employer] Operator: Lakhwinder Tim MD CO2 [Moles/Vol] 24 mmol/L Normal 20-31 [facility] Comment on above: Performed By: #### C DP #### [facility] [address] [place], [place] 6092283 [employer] Operator: Lakhwinder Tim MD Creatinine [Mass/Vol] 0.5 mg/dL Normal 0.50-0.90 [facility] Comment on above: Performed By: #### C DP #### [facility] [address] [place] [address] Wheel [employer] Operator: Lakhwinder Tim MD GFR/1.73 sq M.predicted among non-blacks MDRD (S/P/Bld) [Vol rate/Area] mL/min/{1.73_m2} Normal >60 [facility] Comment on above: Result Comment: These [...] secretion. Performed By: #### C DP #### [facility] [address] [place], [place] 0620583 [employer] Operator: Lakhwinder Tim MD Glucose [Mass/Vol] 83 mg/dL Normal 74-99 [facility] Comment on above: Performed By: #### C DP #### [facility] [address] [place], [place] 1226783 [employer] Operator: Lakhwinder Tim MD Potassium [Moles/Vol] 3.3 mmol/L Low 3.7-5.3 [facility] Comment on above: Performed By: #### C DP #### [facility] [address] [place], [place] 1526683 Wheel [employer] Operator: Lakhwinder Tim MD Protein [Mass/Vol] 5.8 g/dL Low 6.6-8.7 [facility] Comment on above: Performed By: #### C DP #### [facility] [address] [place], [place] 0564083 [employer] Operator: Lakhwinder Tim MD Sodium [Moles/Vol] 139 mmol/L Normal 136-145 [facility] Comment on above: Performed By: #### C DP #### [facility] [address] [place], [place] 9860883 Wheel [employer] Operator: Lakhwinder Tim MD Urea nitrogen [Mass/Vol] 12 mg/dL Normal 6-20 [facility] Comment on above: Performed By: #### C DP #### [facility] [address] [place], [place] 8578483 Wheel [employer] Operator: Lakhwinder Tim MD Comprehensive Metabolic Pane l w/ Reflex to MGon 04-12-2024 Albumin [Mass/Vol] 3.1 g/dL Low 3.5 - 5.2 g/dL [facility] Albumin/Globulin [Mass ratio] 1.2 {ratio} 1.0 - 2.5 [facility] ALP [Catalytic activity/Vol] 41 U/L 35 - 104 U/L [facility] ALT [Catalytic activity/Vol] 11 U/L 10 - 35 U/L [facility] Anion gap [Moles/Vol] 9 mmol/L 9 - 16 mmol/L [facility] AST [Catalytic activity/Vol] 9 U/L Low 10 - 35 U/L [facility] Bilirubin [Mass/Vol] 0.3 mg/dL 0.00 - 1.20 mg/dL [facility] Calcium [Mass/Vol] 8.2 mg/dL Low 8.6 - 10. 4 mg/dL [facility] Chloride [Moles/Vol] 106 mmol/L 98 - 10 7 mmol/L [facility] CO2 [Moles/Vol] 24 mmol/L 20 - 31 mmol/L [facility] Creatinine [Mass/Vol] 0.5 mg/dL 0.50 - 0.90 mg/dL [facility] Est, Glom Filt Rate - PINF [facility] Comment on above: These results are [...] [Mass/Vol] 83 mg/dL 74 - 99 mg/dL [facility] Interpretation and review of laboratory results Abnormal [facility] Potassium [Moles/Vol] 3.3 mmol/L Low 3.7 - 5.3 mmol/L [facility] Protein [Mass/Vol] 5.8 g/dL Low 6.6 - 8.7 g/dL [facility] Sodium [Moles/Vol] 139 mmol/L 136 - 145 mmol/L [facility] Urea nitrogen [Mass/Vol] 12 mg/dL 6 - 20 mg/dL [facility] Urea nitrogen/Creatinine [Mass ratio] 24 mg/mg High 9 - 20 [facility] EKG Rhythm Stripon 4 [facility] Magnesiumon 04-12-2024 Magnesium [Mass/Vol] 1.7 mg/dL 1.6 - 2 .6 mg/dL [facility] Magnesium [Mass/Vol] 1.7 mg/dL Normal 1.6-2.6 [facility] Comment on above: Performed By: #### C DP #### [facility] [address] [place] [address] Wheel Loader Operator: Lakhwinder Tim MD SURGICAL PATHOLOGY REPORTon 04-12-2024 Surgical Pathology Report Path Number: [id number] -- Diagnosis -- A. APPENDIX, APPENDECTOMY: Unremarkable appendix with minimal serosal adhesions. Sara Genao M.D. Electronically Signed [facility]/04/12/2024 Clinical Information Pre-Op Diagnosis: PERITONEAL CAVITY FREE [...] Description Microscopic examination performed. Processing Lab: [address] [address] Interpretation Performed at [address] [address] SURGICAL PATHOLOGY CONSULTATION Patient Name: BARBRA CLAROS [facility] Rec: [id number] [employer] [facility] ANATOMIC PATHOLOGY [address] [facility] [place], [place] [address] [facility] CBC auto differentialon 03-20 Basophils (Bld) [#/Vol] 0.00 10*3/uL [facility] Basophils/100 WBC (Bld) 0 % 0 - 2 % [facility] Eosinophils (Bld) [#/Vol] 0.00 10*3/uL [facility] Eosinophils/100 WBC (Bld) 0 % Low 1 - 4 % [facility] Erythrocyte distribution width (RBC) [Ratio] 13.7 % 11.8 - 14.4 % [facility] Hematocrit (Bld) [Volume fraction] 34.4 % Low 36.3 - 47.1 % [facility] Hemoglobin (Bld) [Mass/Vol] 11.1 g/dL Low 11.9 - 15.1 g/dL [facility] Immature granulocytes (Bld) [#/Vol] 0.00 10*3/uL [facility] Immature granulocytes/100 WBC (Bld) 0 % 0 [facility] Interpretation and review of laboratory results Abnormal [facility] Lymphocytes/100 WBC (Bld) 8 % Low 24 - 43 % [facility] Lymphocytes/100 WBC (Bld) 0.75 % Low [facility] MCH (RBC) [Entitic mass] 28.2 pg 25.2 - 33.5 pg [facility] MCHC (RBC) [Mass/Vol] 32.3 g/dL 28.4 - 34.8 g/dL [facility] MCV (RBC) [Entitic vol] 87.3 fL 82.6 - 102.9 fL [facility] Monocytes/100 WBC (Bld) 1 % Low 3 - 12 % [facility] Monocytes/100 WBC (Bld) 0.09 % Low [facility] [place] (Bld) [Interp] Platelet scan shows Normal Platelets [facility] Neutrophils/100 WBC (Bld) 91 % High 36 - 65 % [facility] Nucleated RBC/100 WBC (Bld) [Ratio] 0.0 % 0.0 per 100 WBC [facility] Platelet mean volume (Bld) [Entitic vol] 10.8 fL 8.1 - 13.5 fL [facility] Platelets (Bld) [#/Vol] 170 10*3/uL [facility] RBC (Bld) [#/Vol] 3.94 10*6/uL Low 3.95 - 5.1 1 m/uL [facility] Segmented neutrophils/100 WBC (Bld) 8.56 % High [facility] WBC other (Bld) [#/Vol] 9.4 [facility] CBC with Diffon 04-11-2024 Abs. Basophil 0.00 k/uL Normal 0.0-0.2 [facility] Comment on above: Performed By: #### C P, LIP, CDP #### [address] [place], [place] [id number] Wheel Loader Operator: Lakhwinder Tim MD Abs.Imm.Granulocyte 0.00 k/uL Normal 0.00-0.30 [facility] Comment on above: Performed By: #### C P, LIP, CDP #### [address] [place], [facility]83 Wheel Loader Operator: Lakhwinder Tim MD Abs.Neutrophil (Seg) 8.56 k/uL High 1.50-8.10 [facility] Comment on above: Performed By: #### C P, LIP, CDP #### [address] [place] [address] Wheel Loader Operator: Lakhwinder Tim MD Basophils/100 WBC (Bld) 0 % Normal 0-2 [facility] Comment on above: Performed By: #### C P, LIP, CDP #### [address] [place], [place] [id number] Wheel Loader Operator: Lakhwinder Tim MD Eosinophils (Bld) [#/Vol] 0.00 10*3/uL Normal 0.00-0.44 [facility] Comment on above: Performed By: #### C P, LIP, CDP #### [address] [place], [facility]52 Wheel Loader Operator: Lakhwinder Tim MD Eosinophils/100 WBC (Bld) 0 % Low 1-4 [facility] Comment on above: Performed By: #### C P, LIP, CDP #### [address] [place], [facility]83 Wheel Loader Operator: Lakhwinder Tim MD Immature granulocytes/100 WBC (Bld) 0 % Normal 0 [facility] Comment on above: Performed By: #### C P, LIP, CDP #### [facility] [address] [place], [place] [address] Wheel Loader Operator: Lakhwinder Tim MD Lymphocytes (Bld) [#/Vol] 0.75 10*3/uL Low 1.10-3.70 [facility] Comment on above: Performed By: #### C P, LIP, CDP #### [address] [place], [place] [address] Wheel Loader Operator: Lakhwinder Tim MD Lymphocytes/100 WBC (Bld) 8 % Low 24-43 [facility] Comment on above: Performed By: #### C P, LIP, CDP #### [address] [place], [facility]83 Wheel Loader Operator: Lakhwinder Tim MD Monocytes (Bld) [#/Vol] 0.09 10*3/uL Low 0.10-1.20 [facility] Comment on above: Performed By: #### C P, LIP, CDP #### [facility] [address] [place] [address] Dr. [place], [facility]83 Wheel Loader Operator: Lakhwinder Tim MD Monocytes/100 WBC (Bld) 1 % Low 3-12 [facility] Comment on above: Performed By: #### C P, LIP, CDP #### [facility] [address] [place], [facility]83 Wheel Loader Operator: Lakhwinder Tim MD Morphology [place] (Bld) [Interp] Platelet scan shows Normal Platelets Normal [facility] Comment on above: Performed By: #### C P, LIP, CDP #### [facility] [address] [place], [place] [address] Wheel Loader Operator: Lakhwinder Tim MD Neutrophil (Seg) 91 % High 36-65 [facility] Comment on above: Performed By: #### C P, LIP, CDP #### [address] [place], [place] [address] Wheel Loader Operator: Lakhwinder Tim MD Erythrocyte distribution width (RBC) [Ratio] 13.7 % Normal 11.8-14.4 [facility] Comment on above: Performed By: #### C P, LIP, CDP #### [address] [place], [facility]83 Wheel Loader Operator: Lakhwinder Tim MD Hematocrit (Bld) [Volume fraction] 34.4 % Low 36.3-47.1 [facility] Comment on above: Performed By: #### C P, LIP, CDP #### [address] [place], [place] [address] Wheel Loader Operator: Lakhwinder Tim MD Hemoglobin (Bld) [Mass/Vol] 11.1 g/dL Low 11.9-15.1 [facility] Comment on above: Performed By: #### C P, LIP, CDP #### [address] [place], [facility]83 Wheel Loader Operator: Lakhwinder Tim MD MCH (RBC) [Entitic mass] 28.2 pg Normal 25.2-33.5 [facility] Comment on above: Performed By: #### C P, LIP, CDP #### [address] [place], [place] [id number] Wheel Loader Operator: Lakhwinder Tim MD MCHC (RBC) [Mass/Vol] 32.3 g/dL Normal 28.4-34.8 [facility] Comment on above: Performed By: #### C P, LIP, CDP #### [facility] [address] [place], [place] [id number] Wheel Loader Operator: Lakhwinder Tim MD MCV (RBC) [Entitic vol] 87.3 fL Normal 82.6-102.9 [facility] Comment on above: Performed By: #### C P, LIP, CDP #### [address] [place], [facility]83 Wheel Loader Operator: Lakhwinder Tim MD NRBC Automated 0.0 per [address] [facility] Comment on above: Performed By: #### C P, LIP, CDP #### [address] [place], [facility]83 Wheel Loader Operator: Lakhwinder Tim MD Platelet mean volume (Bld) [Entitic vol] 10.8 fL Normal 8.1-13.5 [facility] Comment on above: Performed By: #### C P, LIP, CDP #### [address] [place], [place] [id number] Wheel Loader Operator: Lakhwinder Tim MD Platelets (Bld) [#/Vol] 170 10*3/uL Normal 138-453 [facility] Comment on above: Performed By: #### C P, LIP, CDP #### [address] [place], [place] [address] Wheel Loader Operator: Lakhwinder Tim MD RBC (Bld) [#/Vol] 3.94 10*6/uL Low 3.95-5.11 [facility] Comment on above: Performed By: #### C P, LIP, CDP #### [address] [place] [address] Wheel Loader Operator: Lakhwinder Tmi MD WBC (Bld) [#/Vol] 9.4 10*3/uL Normal 3.5-11.3 [facility] Comment on above: Performed By: #### C P, LIP, CDP #### [facility] [address] [place], [place] [phone] Wheel Loader Operator: Lakhwinder Tim MD Comp Metabolic Pr/rfx MGon 1 0- Albumin [Mass/Vol] 3.6 g/dL Normal 3.5-5.2 [facility] Comment on above: Performed By: #### C P, LIP, CDP #### [facility] [address] [place], [place] [phone] Wheel Loader Operator: Lakhwinder Tim MD Albumin/Glob Ratio 1.2 Normal 1.0-2.5 [facility] Comment on above: Performed By: #### C P, LIP, CDP #### [address] [place], [place] [phone] Wheel Loader Operator: Lakhwinder Tim MD Alkaline Phos 49 U/L Normal 35-104 [facility] Comment on above: Performed By: #### C P, LIP, CDP #### [address] [place], [place] [phone] Wheel Loader Operator: Lakhwinder Tim MD ALT [Catalytic activity/Vol] 13 U/L Normal 10-35 [facility] Comment on above: Performed By: #### C P, LIP, CDP #### [address] [place], [place] [id number] Wheel Loader Operator: Lakhwinder Tim MD Anion gap [Moles/Vol] 9 mmol/L Normal 9-16 [facility] Comment on above: Performed By: #### C P, LIP, CDP #### [address] [place], [place] [phone] Wheel Loader Operator: Lakhwinder Tim MD AST [Catalytic activity/Vol] 13 U/L Normal 10-35 [facility] Comment on above: Performed By: #### C P, LIP, CDP #### [facility] [address] [place] [address]83 Wheel Loader Operator: Lakhwinder Tim MD Bilirubin [Mass/Vol] 0.7 mg/dL Normal 0.00-1.20 [facility] Comment on above: Performed By: #### C P, LIP, CDP #### [facility] [address] [place], [place] [address]83 Wheel Loader Operator: Lakhwinder Tim MD BUN/CRE Ratio 18 Normal 9-20 [facility] Comment on above: Performed By: #### C P, LIP, CDP #### [facility] [address] [place], [place] 114[address]83 Wheel Loader Operator: Lakhwinder Tim MD Calcium [Mass/Vol] 8.4 mg/dL Low 8.6-10.4 [facility] Comment on above: Performed By: #### C P, LIP, CDP #### [facility] [address] [place] [address] Dr. [place], [place] [phone] Wheel Loader Operator: Lakhwinder Tim MD Chloride [Moles/Vol] 105 mmol/L Normal 98-107 [facility] Comment on above: Performed By: #### C P, LIP, CDP #### [facility] [address] [place] [address] Dr. [place], [place] [phone] Wheel Loader Operator: Lakhwinder Tim MD CO2 [Moles/Vol] 23 mmol/L Normal 20-31 [facility] Comment on above: Performed By: #### C P, LIP, CDP #### [facility] [address] [place], [place] [phone] Wheel Loader Operator: Lakhwinder Tim MD Creatinine [Mass/Vol] 0.5 mg/dL Normal 0.50-0.90 [facility] Comment on above: Performed By: #### C P, LIP, CDP #### [facility] [address] [place], [place] 2566183 Wheel Loader Operator: Lakhwinder Tim MD GFR/1.73 sq M.predicted among non-blacks MDRD (S/P/Bld) [Vol rate/Area] mL/min/{1.73_m2} Normal >60 [facility] Comment on above: Result Comment: These [...] By: #### C P, LIP, CDP #### [facility] [address] [place] [address] [place] [address] Wheel Loader Operator: Lakhwinder Tim MD Glucose [Mass/Vol] 136 mg/dL High 74-99 [facility] Comment on above: Performed By: #### C P, LIP, CDP #### [address] [place] [address] Wheel Loader Operator: Lakhwinder Tim MD Potassium [Moles/Vol] 4.0 mmol/L Normal 3.7-5.3 [facility] Comment on above: Performed By: #### C P, LIP, CDP #### [address] [place], [place] [phone] Wheel Loader Operator: Lakhwinder Tim MD Protein [Mass/Vol] 6.6 g/dL Normal 6.6-8.7 [facility] Comment on above: Performed By: #### C P, LIP, CDP #### [facility] [address] [place] [address] Dr. [place], [place] [phone] Wheel Loader Operator: Lakhwinder Tim MD Sodium [Moles/Vol] 137 mmol/L Normal 136-145 [facility] Comment on above: Performed By: #### C P, LIP, CDP #### [facility] [address] [place] [address] Wheel Loader Operator: Lakhwinder Tim MD Urea nitrogen [Mass/Vol] 9 mg/dL Normal 6-20 [facility] Comment on above: Performed By: #### C P, LIP, CDP #### [facility] [address] [place] [address] Wheel Loader Operator: Lakhwinder Tim MD Comprehensive Metabolic Pane l w/ Reflex to MGon 04-11-2024 Albumin [Mass/Vol] 3.6 g/dL 3.5 - 5.2 g/dL [facility] Albumin/Globulin [Mass ratio] 1.2 {ratio} 1.0 - 2.5 [facility] ALP [Catalytic activity/Vol] 49 U/L 35 - 104 U/L [facility] ALT [Catalytic activity/Vol] 13 U/L 10 - 35 U/L [facility] Anion gap [Moles/Vol] 9 mmol/L 9 - 16 mmol/L [facility] AST [Catalytic activity/Vol] 13 U/L 10 - 35 U/L [facility] Bilirubin [Mass/Vol] 0.7 mg/dL 0.00 - 1.20 mg/dL [facility] Calcium [Mass/Vol] 8.4 mg/dL Low 8.6 - 10. 4 mg/dL [facility] Chloride [Moles/Vol] 105 mmol/L 98 - 10 7 mmol/L [facility] CO2 [Moles/Vol] 23 mmol/L 20 - 31 mmol/L [facility] Creatinine [Mass/Vol] 0.5 mg/dL 0.50 - 0.90 mg/dL [facility] Est, Glom Filt Rate - PINF [facility] Comment on above: These results are [...] 136 mg/dL High 74 - 99 mg/dL [facility] Interpretation and review of laboratory results Abnormal [employer] Potassium [Moles/Vol] 4.0 mmol/L 3.7 - 5.3 mmol/L [employer] Protein [Mass/Vol] 6.6 g/dL 6.6 - 8.7 g/dL [employer] Sodium [Moles/Vol] 137 mmol/L 136 - 145 mmol/L [employer] Urea nitrogen [Mass/Vol] 9 mg/dL 6 - 20 mg/dL [employer] Urea nitrogen/Creatinine [Mass ratio] 18 mg/mg 9 - 20 [employer] [facility] [employer] EKG 12 LeadOrdered By: Haley Alcantar hmad on 04-11-2024 Atrial Rate 99 BPM [employer] Work Phone: P [place] 46 degrees [employer] Work Phone: P-R Interval 148 ms [employer] Work Phone: Q-T Interval 362 ms [employer] Work Phone: QRS Duration 96 ms [employer] Work Phone: QTc Calculation (Bazett) 464 ms [employer] Work Phone: R [place] 33 degrees [employer] Work Phone: T [place] 37 degrees [employer] Work Phone: Ventricular Rate 99 BPM [facility] [employer] Work Phone: [employer] Work Phone: EKG 12 Leadon 04-11-2024 Poor [...] Hicks MD ([id number]) on 04/11/2024 8:01:06 AM [facility] Haley Hicks MD - 04/11/2024 Poor data quality, interpretation may be adversely affected Normal sinus rhythm Incomplete right bundle branch block Nonspecific T wave abnormality Prolonged QT Abnormal ECG ECG not diagnostic for Acute Coronary Syndrome; consider clinical findings When compared with ECG of 15-AUG-2023 19:40, Poor data quality in current ECG precludes serial comparison Confirmed by Haley Hicks MD ([id number]) on 04/11/2024 8:01:06 AM [facility] EKG Rhythm Stripon [facility] Surgical Pathology Reporton 04-11-2024 Surgical Pathology Report (NOTE) Path Number: [id number] -- Diagnosis -- A. APPENDIX, APPENDECTOMY: Unremarkable [...] Description Microscopic examination performed. Processing Lab: [address] [address] Interpretation Performed at [address] [address] SURGICAL PATHOLOGY CONSULTATION Patient Name: BARBRA CLAROS Med Rec: [id number] [facility] [employer] [facility] ANATOMIC PATHOLOGY [address] [facility] [address] [place], [place] [address] [facility] TYPE AND SCREENon 04-11-2024 ABO and Rh group Nom (Bld) Blood group O Rh(D) positive [facility] Arm Band Number [id number] [facility] Blood Bank Sample Expiration 04/13/2024,2359 [facility] Blood group antibodies identified Nom Negative [facility] Type + Screenon 04-11-2024 Type + Screen Sample Expiration 04/13/2024,2359 Arm Band Number [id number] ABO/Rh(D) O POSITIVE Antibody Screen NEGATIVE Normal [facility] Comment on above: Performed By: #### C DP #### [facility] [address] [place] [address] Wheel Loader Operator: Lakhwinder Tim MD Basic Metabolic Panelon 03-20 Anion gap [Moles/Vol] 10 mmol/L 9 - 16 mmol/L [facility] Calcium [Mass/Vol] 9.0 mg/dL 8.6 - 10. 4 mg/dL [facility] Chloride [Moles/Vol] 103 mmol/L 98 - 10 7 mmol/L [facility] CO2 [Moles/Vol] 26 mmol/L 20 - 31 mmol/L [facility] Creatinine [Mass/Vol] 0.5 mg/dL 0.50 - 0.90 mg/dL [facility] Est, Love [place] Rate - PINF [facility] Comment on above: These results are [...] [Mass/Vol] 88 mg/dL 74 - 99 mg/dL [facility] Interpretation and review of laboratory results Abnormal [facility] Potassium [Moles/Vol] 3.7 mmol/L 3.7 - 5.3 mmol/L [facility] Sodium [Moles/Vol] 139 mmol/L 136 - 145 mmol/L [facility] Urea nitrogen [Mass/Vol] 11 mg/dL 6 - 20 mg/dL [facility] Urea nitrogen/Creatinine [Mass ratio] 22 mg/mg High 9 - 20 [facility] Basic Metabolic Profon 04-10 Anion gap [Moles/Vol] 10 mmol/L Normal 9-16 [facility] Comment on above: Performed By: #### C P, LIP, CDP #### [facility] [address] [place], [place] 05[address]83 Wheel Loader Operator: Lakhwinder Tim MD BUN/CRE Ratio 22 High 9-20 [facility] Comment on above: Performed By: #### C P, LIP, CDP #### [facility] [address] [place], [place] [phone] Wheel Loader Operator: Lakhwinder Tim MD Calcium [Mass/Vol] 9.0 mg/dL Normal 8.6-10.4 [facility] Comment on above: Performed By: #### C P, LIP, CDP #### [facility] [address] [place], [place] 28[address]783 Wheel Loader Operator: Lakhwinder Tim MD Chloride [Moles/Vol] 103 mmol/L Normal 98-107 [facility] Comment on above: Performed By: #### C P, LIP, CDP #### [facility] [address] [place], [place] [address]683 Wheel Loader Operator: Lakhwinder Tim MD CO2 [Moles/Vol] 26 mmol/L Normal 20-31 [facility] Comment on above: Performed By: #### C P, LIP, CDP #### [facility] [address] [place] [address] Wheel Loader Operator: Lakhwinder Tim MD Creatinine [Mass/Vol] 0.5 mg/dL Normal 0.50-0.90 [facility] Comment on above: Performed By: #### C P, LIP, CDP #### [facility] [address] [place] [address] Wheel Loader Operator: Lakhwinder Tim MD GFR/1.73 sq M.predicted among non-blacks MDRD (S/P/Bld) [Vol rate/Area] mL/min/{1.73_m2} Normal >60 [facility] Comment on above: Result Comment: These [...] By: #### C P, LIP, CDP #### [address] [place] [address] Wheel Loader Operator: Lakhwinder Tim MD Glucose [Mass/Vol] 88 mg/dL Normal 74-99 [facility] Comment on above: Performed By: #### C P, LIP, CDP #### [address] [place] [address] Wheel Loader Operator: Lakhwinder Tim MD Potassium [Moles/Vol] 3.7 mmol/L Normal 3.7-5.3 [facility] Comment on above: Performed By: #### C P, LIP, CDP #### [address] [place] [address] Wheel Loader Operator: Lakhwinder Tim MD Sodium [Moles/Vol] 139 mmol/L Normal 136-145 [facility] Comment on above: Performed By: #### C P, LIP, CDP #### [address] [place] [address] Wheel Loader Operator: Lakhwinder Tim MD Urea nitrogen [Mass/Vol] 11 mg/dL Normal 6-20 [facility] Comment on above: Performed By: #### C P, LIP, CDP #### [facility] [address] [place] [address] Wheel Loader Operator: Lakhwinder Tim MD CBC with Auto Differentialon 04-10-2024 Basophils (Bld) [#/Vol] [facility] Basophils/100 WBC (Bld) 0 % 0 - 2 % [facility] Eosinophils (Bld) [#/Vol] [facility] Eosinophils/100 WBC (Bld) 0 % Low 1 - 4 % [facility] Erythrocyte distribution width (RBC) [Ratio] 13.8 % 11.8 - 14.4 % [facility] Hematocrit (Bld) [Volume fraction] 36.3 % 36.3 - 47.1 % [facility] Hemoglobin (Bld) [Mass/Vol] 11.7 g/dL Low 11.9 - 15.1 g/dL [facility] Immature granulocytes (Bld) [#/Vol] [facility] Immature granulocytes/100 WBC (Bld) 0 % 0 [facility] Interpretation and review of laboratory results Abnormal [facility] Lymphocytes/100 WBC (Bld) 17 % Low 24 - 43 % [facility] Lymphocytes/100 WBC (Bld) 1.52 % [facility] MCH (RBC) [Entitic mass] 28.1 pg 25.2 - 33.5 pg [facility] MCHC (RBC) [Mass/Vol] 32.2 g/dL 28.4 - 34.8 g/dL [facility] MCV (RBC) [Entitic vol] 87.3 fL 82.6 - 102.9 fL [facility] Monocytes/100 WBC (Bld) 7 % 3 - 12 % [facility] Monocytes/100 WBC (Bld) 0.66 % [facility] Neutrophils/100 WBC (Bld) 76 % High 36 - 65 % [facility] Nucleated RBC/100 WBC (Bld) [Ratio] 0.0 % 0.0 per 100 WBC [facility] Platelet mean volume (Bld) [Entitic vol] 10.5 fL 8.1 - 13.5 fL [facility] Platelets (Bld) [#/Vol] 192 10*3/uL [facility] [facility] RBC (Bld) [#/Vol] 4.16 10*6/uL 3.95 - 5.1 1 m/uL [facility] Segmented neutrophils/100 WBC (Bld) 6.88 % [facility] WBC other (Bld) [#/Vol] 9.1 [facility] CBC with Diffon 04-10-2024 Abs. Basophil <0.03 Normal 0.00-0.20 [facility] Comment on above: Performed By: #### C P, LIP, CDP #### [facility] [address] [place] [address] Dr. [place] [id number] Wheel Load[employer] Operator: Lakhwinder Tim MD Abs. Eosinophil <0.03 Normal 0.00-0.44 [facility] Comment on above: Performed By: #### C P, LIP, CDP #### [facility] [address] [place] [address] Dr. [place], [place] [address] Wheel Load[employer] Operator: Lakhwinder Tim MD Abs.Imm.Granulocyte <0.03 Normal 0.00-0.30 [facility] Comment on above: Performed By: #### C P, LIP, CDP #### [address] [place], [facility]83 [employer] Operator: Lakhwinder Tim MD Abs.Neutrophil (Seg) 6.88 k/uL Normal 1.50-8.10 [facility] Comment on above: Performed By: #### C P, LIP, CDP #### [facility] [address] [place] [address] [place] [address] Wheel Load[employer] Operator: Lakhwinder Tim MD Basophils/100 WBC (Bld) 0 % Normal 0-2 [facility] Comment on above: Performed By: #### C P, LIP, CDP #### [facility] [address] [place] [address] Dr. [place], [place] [id number] [employer] Operator: Lakhwinder Tim MD Eosinophils/100 WBC (Bld) 0 % Low 1-4 [facility] Comment on above: Performed By: #### C P, LIP, CDP #### [address] [place] [address] Wheel Load[employer] Operator: Lakhwinder Tim MD Erythrocyte distribution width (RBC) [Ratio] 13.8 % Normal 11.8-14.4 [facility] Comment on above: Performed By: #### C P, LIP, CDP #### [address] [place] [id number] Wheel Loader Operator: Lakhwinder Tim MD Hematocrit (Bld) [Volume fraction] 36.3 % Normal 36.3-47.1 [facility] Comment on above: Performed By: #### C P, LIP, CDP #### [address] [place] [id number] Wheel Loader Operator: Lakhwinder Tim MD Hemoglobin (Bld) [Mass/Vol] 11.7 g/dL Low 11.9-15.1 [facility] Comment on above: Performed By: #### C P, LIP, CDP #### [address] [place], [place] [id number] Wheel Loader Operator: Lakhwinder Tim MD Immature granulocytes/100 WBC (Bld) 0 % Normal 0 [facility] Comment on above: Performed By: #### C P, LIP, CDP #### [address] [place], [facility]83 Wheel Load[employer] Operator: Lakhwinder Tim MD Lymphocytes (Bld) [#/Vol] 1.52 10*3/uL Normal 1.10-3.70 [facility] Comment on above: Performed By: #### C P, LIP, CDP #### [address] [place] [address] Wheel Load[employer] Operator: Lakhwinder Tim MD Lymphocytes/100 WBC (Bld) 17 % Low 24-43 [facility] Comment on above: Performed By: #### C P, LIP, CDP #### [address] [place], [facility]83 Wheel Load[employer] Operator: Lakhwinder Tim MD MCH (RBC) [Entitic mass] 28.1 pg Normal 25.2-33.5 [facility] Comment on above: Performed By: #### C P, LIP, CDP #### [address] [place], [place] [address] Wheel Loader Operator: Lakhwinder Tim MD MCHC (RBC) [Mass/Vol] 32.2 g/dL Normal 28.4-34.8 [facility] Comment on above: Performed By: #### C P, LIP, CDP #### [address] [place], [place] [address] Wheel Loader Operator: Lakhwinder Tim MD MCV (RBC) [Entitic vol] 87.3 fL Normal 82.6-102.9 [facility] Comment on above: Performed By: #### C P, LIP, CDP #### [address] [place], [facility]83 Wheel Loader Operator: Lakhwinder Tim MD Monocytes (Bld) [#/Vol] 0.66 10*3/uL Normal 0.10-1.20 [facility] Comment on above: Performed By: #### C P, LIP, CDP #### [address] [place], [facility]83 Wheel Load[employer] Operator: Lakhwinder Tim MD Monocytes/100 WBC (Bld) 7 % Normal 3-12 [facility] Comment on above: Performed By: #### C P, LIP, CDP #### [facility] [address] [place], [facility]83 Wheel Loader Operator: Lakhwinder Tim MD Neutrophil (Seg) 76 % High 36-65 [facility] Comment on above: Performed By: #### C P, LIP, CDP #### [address] [place], [place] [id number] Wheel Loader Operator: Lakhwinder Tim MD NRBC Automated 0.0 per [address] [facility] Comment on above: Performed By: #### C P, LIP, CDP #### [address] [place], [facility]83 Wheel Load[employer] Operator: Lakhwinder Tim MD Platelet mean volume (Bld) [Entitic vol] 10.5 fL Normal 8.1-13.5 [facility] Comment on above: Performed By: #### C P, LIP, CDP #### [address] [place], [facility]83 Wheel Loader Operator: Lakhwinder Tim MD Platelets (Bld) [#/Vol] 192 10*3/uL Normal 138-453 [facility] Comment on above: Performed By: #### C P, LIP, CDP #### [address] [place], [facility]83 Wheel Loader Operator: Lakhwinder Tim MD RBC (Bld) [#/Vol] 4.16 10*6/uL Normal 3.95-5.11 [facility] Comment on above: Performed By: #### C P, LIP, CDP #### [address] [place], [facility]83 Wheel Loader Operator: Lakhwinder Tim MD WBC (Bld) [#/Vol] 9.1 10*3/uL Normal 3.5-11.3 [facility] Comment on above: Performed By: #### C P, LIP, CDP #### [address] [place], [facility]83 Wheel Loader Operator: Lakhwinder Tim MD CT ABDOMEN PELVIS [...] MD 04/10/24 Edited Result - FINAL Normal [facility] CT Abdomen and Pelvis W cont rast Alexsander 10-23-2024 1. New pneumoperiton eum consistent with perforated [...] ELA Laird at 8:04 p.m. on 04/10/2024. [facility] CONSOLIDATED EXAMINATION: CT OF THE ABDOMEN AND [...] acute bony or soft tissue abnormality identified. [facility] RIS CONSOLIDATED Esther Coates MD - 04/10/2024 [...] ELA Laird at 8:04 p.m. on 04/10/2024. [facility] Radiology Study observation (narrative) [facility] CT Abdomen and Pelvis W cont rast IVOrdered By: Esther Coates on 04-10-2024 [facility] Work Phone: Lactic Acidon 04-10-2024 Lactate (BldV) [Moles/Vol] 0.6 mmol/L 0.5 - 2.2 mmol/L [facility] Lactate [Moles/Vol] 0.6 mmol/L Normal 0.5-2.2 [facility] Comment on above: Performed By: #### C PTOM, CDP #### [facility] [address] [place] [address] Wheel Loader Operator: Lakhwinder Tim MD Microscopic Urinalysison Epithelial cells LM.HPF (Urine sed) [#/Area] 0 TO 2 [facility] Interpretation and review of laboratory results Abnormal [facility] Mucus Ql (Urine sed) TRACE Abnormal None [facility] RBC LM.HPF (Urine sed) [#/Area] 0 TO 2 [facility] WBC LM.HPF (Urine sed) [#/Area] 0 TO 2 [facility] UA w/Reflex Cultureon 2023 Bilirubin, SemiQt,Ur Negative Normal NEG [facility] Comment on above: Performed By: #### C P, LIP, CDP #### [facility] [address] [place] [address] Wheel Loader Operator: Lakhwinder Tim MD Blood, Urine TRACE Abnormal NEG [facility] Comment on above: Performed By: #### C P, LIP, CDP #### [facility] [address] [place] [address] Wheel Loader Operator: Lakhwinder Tim MD Clarity (U) Clear Normal CLEAR [facility] Comment on above: Performed By: #### C P, LIP, CDP #### [facility] [address] [place], [place] [phone] Wheel Loader Operator: Lakhwinder Tim MD Color (U) Yellow Normal YEL [facility] Comment on above: Performed By: #### C P, LIP, CDP #### [facility] [address] [place], [place] [id number] Wheel Loader Operator: Lakhwinder Tim MD Glucose Ql (U) Negative Normal NEG [facility] Comment on above: Performed By: #### C P, LIP, CDP #### [address] [place], [place] [phone] Wheel Loader Operator: Lakhwinder Tim MD Ketones Ql (U) Negative Normal NEG [facility] Comment on above: Performed By: #### C P, LIP, CDP #### [facility] [address] [place] [address] Dr. [place], [place] [phone] Wheel Loader Operator: Lakhwinder Tim MD Leukocyte esterase Test strip Ql (U) Negative Normal NEG [facility] Comment on above: Performed By: #### C P, LIP, CDP #### [address] [place] [address] Wheel Loader Operator: Lakhwinder Tim MD Nitrite,Ur Negative Normal [facility] Comment on above: Performed By: #### C P, LIP, CDP #### [facility] [address] [place] [address] [place] [address] Wheel Loader Operator: Lakhwinder Tim MD PH,Ur 6.0 Normal 5.0-9.0 [facility] Comment on above: Performed By: #### C P, LIP, CDP #### [address] [place], [place] [phone] Wheel Loader Operator: Lakhwinder Tim MD Protein Ql (U) Negative Normal NEG [facility] Comment on above: Performed By: #### C P, LIP, CDP #### [facility] [address] [place] [address] Wheel Loader Operator: Lakhwinder Tim MD Spec. Fork,Ur 1.020 Normal 1.010-1.020 [facility] Comment on above: Performed By: #### C P, LIP, CDP #### [facility] [address] [place], [place] [id number] Wheel Loader Operator: Lakhwinder Tim MD Urobilinogen,Ur Normal Normal 0.0-1.0 [facility] Comment on above: Performed By: #### C P, LIP, CDP #### [facility] [address] [place] [address] Wheel Loader Operator: Lakhwinder Tim MD US NON OB [...] Arlette Steiner MD 04/10/[address] [facility] US Pelvis transvaginalon Normal Doppler flow to the ovaries. The right ovary is not as enlarged when compared with the ultrasound from yesterday. [facility] RIS CONSOLIDATED EXAMINATION: PELVIC ULTRASOUND 04/10/2024 TECHNIQUE: Transvaginal [...] venous Doppler flow. Free Fluid: None seen. [facility] Arlette Costa MD - 04/10/2024 EXAMINATION: PELVIC ULTRASOUND 04/10/2024 [...] when compared with the ultrasound from yesterday. [facility] Radiology Study observation (narrative) [facility] US Pelvis transvaginalOrdere d By: Arlette Steiner on 04-10-2024 [facility] Work Phone: Urinalysis with Reflex to Cu ltureon 04-10-2024 Bilirubin Ql (U) Negative NEGATIVE [facility] Clarity (U) Clear Clear [facility] Color (U) Yellow Yellow [facility] Glucose Test strip (U) [Mass/Vol] Negative NEGATIVE mg/dL [facility] [employer] Hemoglobin Auto test strip Ql (U) TRACE Abnormal NEGATIVE [facility] Interpretation and review of laboratory results Abnormal [facility] Ketones (U) [Mass/Vol] Negative NEGATIVE mg/dL [facility] Leukocyte esterase Test strip Ql (U) Negative NEGATIVE [facility] Nitrite Ql (U) Negative NEGATIVE [facility] pH (U) 6.0 [pH] 5.0 - 9.0 [facility] Protein (U) [Mass/Vol] Negative NEGATIVE mg/dL [facility] Specific gravity (U) [Rel density] 1.020 1.010 - 1.020 [facility] Urobilinogen Qn (U) Normal 0.0 - 1. 0 EU/dL [facility] Urinalysis,Microon 4 Epithelial cells LM Ql (Urine sed) 0 TO 2 Normal 0-25 [facility] Comment on above: Performed By: #### C P, LIP, CDP #### [facility] [address] [place] [address] Wheel Loader Operator: Lakhwinder Tim MD Mucus Strands TRACE Abnormal NONE [facility] Comment on above: Performed By: #### C P LIP, CDP #### [facility] [address] [place], [place] [phone] Wheel Loader Operator: Lakhwinder Tim MD Urine RBC's 0 TO 2 Normal 0-2 [facility] Comment on above: Performed By: #### C P LIP, CDP #### [facility] [address] [place], [place] [phone] Wheel Loader Operator: Lakhwinder Tim MD Urine WBC's 0 TO 2 Normal 0-5 [facility] Comment on above: Performed By: #### C P LIP, CDP #### [facility] [address] [place] [address] Wheel Loader Operator: Lakhwinder Tim MD Basic Metabolic Panelon 03-20 Anion gap [Moles/Vol] 8 mmol/L Low 9 - 16 mmol/L [facility] Calcium [Mass/Vol] 9.0 mg/dL 8.6 - 10. 4 mg/dL [facility] Chloride [Moles/Vol] 105 mmol/L 98 - 10 7 mmol/L [facility] CO2 [Moles/Vol] 27 mmol/L 20 - 31 mmol/L [facility] Creatinine [Mass/Vol] 0.5 mg/dL 0.50 - 0.90 mg/dL [facility] EstLove Rate - PINF [facility] Comment on above: These results are [...] 73 mg/dL Low 74 - 99 mg/dL [facility] Interpretation and review of laboratory results Abnormal [facility] Potassium [Moles/Vol] 4.1 mmol/L 3.7 - 5.3 mmol/L [facility] Sodium [Moles/Vol] 140 mmol/L 136 - 145 mmol/L [facility] Urea nitrogen [Mass/Vol] 8 mg/dL 6 - 20 mg/dL [facility] Urea nitrogen/Creatinine [Mass ratio] 16 mg/mg 9 - 20 [facility] Basic Metabolic Profon 04-09 Anion gap [Moles/Vol] 8 mmol/L Low 9-16 [facility] Comment on above: Performed By: #### C P, LIP, CDP #### [facility] [address] [place] [address] Wheel Loader Operator: Lakhwinder Tim MD BUN/CRE Ratio 16 Normal -20 [facility] Comment on above: Performed By: #### C P, LIP, CDP #### [facility] [address] [place] [address] Wheel Loader Operator: Lakhwinder Tim MD Calcium [Mass/Vol] 9.0 mg/dL Normal 8.6-10.4 [facility] Comment on above: Performed By: #### C P, LIP, CDP #### [facility] [address] [place] [address] Wheel Loader Operator: Lakhwinder Tim MD Chloride [Moles/Vol] 105 mmol/L Normal 98-107 [facility] Comment on above: Performed By: #### C P, LIP, CDP #### [facility] [address] [place], [place] [id number] Wheel Loader Operator: Lakhwinder Tim MD CO2 [Moles/Vol] 27 mmol/L Normal 20-31 [facility] Comment on above: Performed By: #### C P, LIP, CDP #### [facility] [address] [place], [place] 6581183 Wheel Loader Operator: Lakhwinder Tim MD Creatinine [Mass/Vol] 0.5 mg/dL Normal 0.50-0.90 [facility] Comment on above: Performed By: #### C P, LIP, CDP #### [address] [place], [place] 1317483 Wheel Loader Operator: Lakhwinder Tim MD GFR/1.73 sq M.predicted among non-blacks MDRD (S/P/Bld) [Vol rate/Area] mL/min/{1.73_m2} Normal >60 [facility] Comment on above: Result Comment: These [...] By: #### C P, LIP, CDP #### [address] [place] [address] Wheel Loader Operator: Lakhwinder Tim MD Glucose [Mass/Vol] 73 mg/dL Low 74-99 [facility] Comment on above: Performed By: #### C P, LIP, CDP #### [facility] [address] [place] [address] Wheel Loader Operator: Lakhwinder Tim MD Potassium [Moles/Vol] 4.1 mmol/L Normal 3.7-5.3 [facility] Comment on above: Performed By: #### C P, LIP, CDP #### [facility] [address] [place], [place] 5151583 Wheel Loader Operator: Lakhwinder Tim MD Sodium [Moles/Vol] 140 mmol/L Normal 136-145 [facility] Comment on above: Performed By: #### C P, LIP, CDP #### [facility] [address] [place] [address] Wheel Loader Operator: Lakhwinder Tim MD Urea nitrogen [Mass/Vol] 8 mg/dL Normal 6-20 [facility] Comment on above: Performed By: #### C P, LIP, CDP #### [facility] [address] [place], [facility]83 Wheel Loader Operator: Lakhwinder Tim MD CBC with Auto Differentialon 04-09-2024 Basophils (Bld) [#/Vol] 0.03 10*3/uL [facility] Basophils/100 WBC (Bld) 1 % 0 - 2 % [facility] Eosinophils (Bld) [#/Vol] 0.07 10*3/uL [facility] Eosinophils/100 WBC (Bld) 1 % 1 - 4 % [facility] Erythrocyte distribution width (RBC) [Ratio] 13.5 % 11.8 - 14.4 % [facility] Hematocrit (Bld) [Volume fraction] 36.7 % 36.3 - 47.1 % [facility] Hemoglobin (Bld) [Mass/Vol] 11.7 g/dL Low 11.9 - 15.1 g/dL [facility] Immature granulocytes (Bld) [#/Vol] [facility] Immature granulocytes/100 WBC (Bld) 0 % 0 [facility] Interpretation and review of laboratory results Abnormal [facility] Lymphocytes/100 WBC (Bld) 38 % 24 - 43 % [facility] Lymphocytes/100 WBC (Bld) 2.24 % [facility] MCH (RBC) [Entitic mass] 28.1 pg 25.2 - 33.5 pg [facility] MCHC (RBC) [Mass/Vol] 31.9 g/dL 28.4 - 34.8 g/dL [facility] MCV (RBC) [Entitic vol] 88.2 fL 82.6 - 102.9 fL [facility] Monocytes/100 WBC (Bld) 7 % 3 - 12 % [facility] Monocytes/100 WBC (Bld) 0.40 % [facility] Neutrophils/100 WBC (Bld) 53 % 36 - 65 % [facility] Nucleated RBC/100 WBC (Bld) [Ratio] 0.0 % 0.0 per 100 WBC [facility] Platelet mean volume (Bld) [Entitic vol] 10.1 fL 8.1 - 13.5 fL [facility] Platelets (Bld) [#/Vol] 188 10*3/uL [facility] RBC (Bld) [#/Vol] 4.16 10*6/uL 3.95 - 5.1 1 m/uL [facility] Segmented neutrophils/100 WBC (Bld) 3.21 % [facility] WBC other (Bld) [#/Vol] 6.0 [facility] CBC with Diffon 04-09-2024 Abs. Basophil 0.03 k/uL Normal 0.00-0.20 [facility] Comment on above: Performed By: #### C P, LIP, CDP #### [facility] [address] [place] [address] Wheel Loader Operator: Lakhwinder Tim MD Abs.Imm.Granulocyte <0.03 Normal 0.00-0.30 [facility] Comment on above: Performed By: #### C P, LIP, CDP #### [facility] [address] [place] [address] Wheel Loader Operator: Lakhwinder Tim MD Abs.Neutrophil (Seg) 3.21 k/uL Normal 1.50-8.10 [facility] Comment on above: Performed By: #### C P, LIP, CDP #### [address] [place] [id number] Wheel Loader Operator: Lakhwinder Tim MD Basophils/100 WBC (Bld) 1 % Normal 0-2 [facility] Comment on above: Performed By: #### C P, LIP, CDP #### [address] [place] [address] Wheel Loader Operator: Lakhwinder Tim MD Eosinophils (Bld) [#/Vol] 0.07 10*3/uL Normal 0.00-0.44 [facility] Comment on above: Performed By: #### C P, LIP, CDP #### [address] [place], [place] [address] Wheel Loader Operator: Lakhwinder Tim MD Eosinophils/100 WBC (Bld) 1 % Normal 1-4 [facility] Comment on above: Performed By: #### C P, LIP, CDP #### [address] [place], [place] [address] Wheel Loader Operator: Lakhwinder Tim MD Erythrocyte distribution width (RBC) [Ratio] 13.5 % Normal 11.8-14.4 [facility] Comment on above: Performed By: #### C P, LIP, CDP #### [address] [place], [facility]83 Wheel Loader Operator: Lakhwinder Tim MD Hematocrit (Bld) [Volume fraction] 36.7 % Normal 36.3-47.1 [facility] Comment on above: Performed By: #### C P, LIP, CDP #### [address] [place], [facility]83 Wheel Loader Operator: Lakhwinder Tim MD Hemoglobin (Bld) [Mass/Vol] 11.7 g/dL Low 11.9-15.1 [facility] Comment on above: Performed By: #### C P, LIP, CDP #### [facility] [address] [place], [place] [id number] Wheel Loader Operator: Lkahwinder Tim MD Immature granulocytes/100 WBC (Bld) 0 % Normal 0 [facility] Comment on above: Performed By: #### C P, LIP, CDP #### [facility] [address] [place], [facility]83 Wheel Loader Operator: Lakhwinder Tim MD Lymphocytes (Bld) [#/Vol] 2.24 10*3/uL Normal 1.10-3.70 [facility] Comment on above: Performed By: #### C P, LIP, CDP #### [address] [place] [address] Wheel Loader Operator: Lakhwinder Tim MD Lymphocytes/100 WBC (Bld) 38 % Normal 24-43 [facility] Comment on above: Performed By: #### C P, LIP, CDP #### [address] [place], [facility]83 Wheel Loader Operator: Lakhwinder Tim MD MCH (RBC) [Entitic mass] 28.1 pg Normal 25.2-33.5 [facility] Comment on above: Performed By: #### C P, LIP, CDP #### [address] [place], [facility]83 Wheel Loader Operator: Lakhwinder Tim MD MCHC (RBC) [Mass/Vol] 31.9 g/dL Normal 28.4-34.8 [facility] Comment on above: Performed By: #### C P, LIP, CDP #### [address] [place] [address] Wheel Loader Operator: Lakhwinder Tim MD MCV (RBC) [Entitic vol] 88.2 fL Normal 82.6-102.9 [facility] Comment on above: Performed By: #### C P, LIP, CDP #### [facility] [address] [place], [place] [address] Wheel Loader Operator: Lakhwinder Tim MD Monocytes (Bld) [#/Vol] 0.40 10*3/uL Normal 0.10-1.20 [facility] Comment on above: Performed By: #### C P, LIP, CDP #### [facility] [address] [place], [place] [address] Wheel Loader Operator: Lakhwinder Tim MD Monocytes/100 WBC (Bld) 7 % Normal 3-12 [facility] Comment on above: Performed By: #### C P, LIP, CDP #### [facility] [address] [place], [place] [address] Wheel Loader Operator: Lakhwinder Tim MD Neutrophil (Seg) 53 % Normal 36-65 [facility] Comment on above: Performed By: #### C P, LIP, CDP #### [facility] [address] [place], [facility]83 Wheel Loader Operator: Lakhwinder Tim MD NRBC Automated 0.0 per [address] [facility] Comment on above: Performed By: #### C P, LIP, CDP #### [address] [place], [place] [address] Wheel Loader Operator: Lakhwinder Tim MD Platelet mean volume (Bld) [Entitic vol] 10.1 fL Normal 8.1-13.5 [facility] Comment on above: Performed By: #### C P, LIP, CDP #### [facility] [address] [place] [address] Wheel Loader Operator: Lakhwinder Tim MD Platelets (Bld) [#/Vol] 188 10*3/uL Normal 138-453 [facility] Comment on above: Performed By: #### C P, LIP, CDP #### [facility] [address] [place] [address] Wheel Loader Operator: Lakhwinder Tim MD RBC (Bld) [#/Vol] 4.16 10*6/uL Normal 3.95-5.11 [facility] Comment on above: Performed By: #### C P, LIP, CDP #### [facility] [address] [place] [address] Wheel Loader Operator: Lakhwinder Tim MD WBC (Bld) [#/Vol] 6.0 10*3/uL Normal 3.5-11.3 [facility] Comment on above: Performed By: #### C PTOM, CDP #### [facility] [address] [place], [facility]83 Wheel [employer] Operator: Lakhwinder Tim MD Lactic Acidon 04-09-2024 Lactate (BldV) [Moles/Vol] 0.9 mmol/L 0.5 - 2.2 mmol/L [facility] Lactate [Moles/Vol] 0.9 mmol/L Normal 0.5-2.2 [facility] Comment on above: Performed By: #### C DP #### [facility] [address] [place], [facility]83 [employer] Operator: Lakhwinder Tim MD Microscopic Urinalysison Bacteria LM Ql (Urine sed) 1+ Abnormal None [facility] Epithelial cells LM.HPF (Urine sed) [#/Area] 2 TO 5 [facility] Interpretation and review of laboratory results Abnormal [facility] Mucus Ql (Urine sed) 1+ Abnormal None [facility] RBC LM.HPF (Urine sed) [#/Area] 0 TO 2 [facility] WBC LM.HPF (Urine sed) [#/Area] 0 TO 2 [facility] UA w/Reflex Cultureon 2023 Bilirubin, SemiQt,Ur Negative Normal NEG [facility] Comment on above: Performed By: #### U MICAO, UAX #### [facility] [address] [place] [address] [place] [place], [place] [phone] Wheel Loader Operator: Lakhwinder Tim MD Blood, Urine Negative Normal NEG [facility] Comment on above: Performed By: #### U MICAO, UAX #### [facility] [address] [place] [address] [place] [place], [place] [phone] Wheel Loader Operator: Lakhwinder Tim MD Clarity (U) Clear Normal CLEAR [facility] Comment on above: Performed By: #### U MICAO, UAX #### [address] [place], [place] 1054683 Wheel Loader Operator: Lakhwinder Tim MD Color (U) Yellow Normal YEL [facility] Comment on above: Performed By: #### U MICAO, UAX #### [facility] [address] [place] [address] [place]. [place], [place] [phone] Wheel Loader Operator: Lakhwinder Tim MD Glucose Ql (U) Negative Normal NEG [facility] Comment on above: Performed By: #### U MICAO, UAX #### [address] [place], [place] [phone] Wheel Loader Operator: Lakhwinder Tim MD Ketones Ql (U) Negative Normal NEG [facility] Comment on above: Performed By: #### U MICAO, UAX #### [facility] [address] [place] [address] [place]. [place], [place] [phone] Wheel Loader Operator: Lakhwinder Tim MD Leukocyte esterase Test strip Ql (U) Negative Normal NEG [facility] Comment on above: Performed By: #### U MICAO, UAX #### [address] [place], [place] 5199983 Wheel Loader Operator: Lakhwinder Tim MD Nitrite,Ur Negative Normal NEG [facility] Comment on above: Performed By: #### U MICAO, UAX #### [facility] [address] [place] [address] [place], [place] [phone] Wheel Loader Operator: Lakhwinder Tim MD PH,Ur 8.0 Normal 5.0-9.0 [facility] Comment on above: Performed By: #### U MICAO, UAX #### [facility] [address] [place] [address] Wheel Loader Operator: Lakhwinder Tim MD Protein Ql (U) Negative Normal NEG [facility] Comment on above: Performed By: #### U MICAO, UAX #### [facility] [address] [place], [place] 7846083 Wheel Loader Operator: Lakhwinder Tim MD Spec. Fork,Ur 1.020 Normal 1.010-1.020 [facility] Comment on above: Performed By: #### U MICAO, UAX #### [facility] [address] [place] [address] [place]. [place], [place] [phone] Wheel Loader Operator: Lakhwinder Tim MD Urobilinogen,Ur Normal Normal 0.0-1.0 [facility] Comment on above: Performed By: #### U MICAO, UAX #### [address] [place], [place] 6563783 Wheel Loader Operator: Lakhwinder Tim MD US NON OB [...] Lexus Villegas MD 04/09/[address] [facility] US Pelvis transvaginalon 1. No sonographic evidence of ovarian torsion. 2. The previously described complex right ovarian cystic lesion now appears to represent two adjacent simple cysts versus less likely a cystic lesion with a thickened internal septation. A separate 2.7 cm mildly heterogeneous area could represent hemorrhagic cyst. Consider 6-8 week pelvic ultrasound to assess change. 3. Prior hysterectomy. [facility] RIS CONSOLIDATED EXAMINATION: TRANSVAGINAL PELVIC ULTRASOUND WITH [...] Free Fluid: No evidence of free fluid. [facility] RIS Lexus Morley MD - 04/09/2024 EXAMINATION: TRANSVAGINAL PELVIC ULTRASOUND [...] ultrasound to assess change. 3. Prior hysterectomy. [employer] Radiology Study observation (narrative) [employer] US Pelvis transvaginalOrdere d By: Lexus Villegas on 04-09-2024 [facility] [employer] Work Phone: Urinalysis with Reflex to Cu ltureon 04-09-2024 Bilirubin Ql (U) Negative NEGATIVE [employer] [facility] Clarity (U) Clear Clear [employer] Color (U) Yellow Yellow [employer] Glucose Test strip (U) [Mass/Vol] Negative NEGATIVE mg/dL [facility] Hemoglobin Auto test strip Ql (U) Negative NEGATIVE [facility] Ketones (U) [Mass/Vol] Negative NEGATIVE mg/dL [facility] Leukocyte esterase Test strip Ql (U) Negative NEGATIVE [facility] Nitrite Ql (U) Negative NEGATIVE [facility] pH (U) 8.0 [pH] 5.0 - 9.0 [facility] Protein (U) [Mass/Vol] Negative NEGATIVE mg/dL [facility] Specific gravity (U) [Rel density] 1.020 1.010 - 1.020 [facility] Urobilinogen Qn (U) Normal 0.0 - 1. 0 EU/dL [facility] Urinalysis,Microon 4 Bacteria 1+ Abnormal NONE [facility] Comment on above: Performed By: #### U MICAO, UAX #### [facility] [address] [place] [phone] Wheel Loader Operator: Lakhwinder Tim MD Epithelial cells LM Ql (Urine sed) 2 TO 5 Normal 0-25 [facility] Comment on above: Performed By: #### U MICAO, UAX #### [facility] [address] [place] [address] Wheel Loader Operator: Lakhwinder Tim MD Mucus Strands 1+ Abnormal [facility] Comment on above: Performed By: #### U MICAO, UAX #### [facility] [address] [place] [address] Wheel Loader Operator: Lakhwinder Tim MD Urine RBC's 0 TO 2 Normal 0-2 [facility] Comment on above: Performed By: #### U MICAO, UAX #### [facility] [address] [place] [address] Wheel Loader Operator: Lakhwinder Tim MD Urine WBC's 0 TO 2 Normal 0-5 [facility] Comment on above: Performed By: #### U MICAO, UAX #### [facility] [address] [place] [address] Wheel Loader Operator: Lakhwinder Tim MD CBC with Auto Differentialon 04-02-2024 Basophils (Bld) [#/Vol] 0.04 10*3/uL [facility] Basophils/100 WBC (Bld) 1 % 0 - 2 % [facility] Eosinophils (Bld) [#/Vol] 0.07 10*3/uL [facility] Eosinophils/100 WBC (Bld) 2 % 1 - 4 % [facility] Erythrocyte distribution width (RBC) [Ratio] 13.7 % 11.8 - 14.4 % [facility] Hematocrit (Bld) [Volume fraction] 40.3 % 36.3 - 47.1 % [facility] Hemoglobin (Bld) [Mass/Vol] 12.9 g/dL 11.9 - 15.1 g/dL [facility] Immature granulocytes (Bld) [#/Vol] [facility] Immature granulocytes/100 WBC (Bld) 0 % 0 [facility] Lymphocytes/100 WBC (Bld) 38 % 24 - 43 % [facility] Lymphocytes/100 WBC (Bld) 1.81 % [facility] MCH (RBC) [Entitic mass] 27.9 pg 25.2 - 33.5 pg [facility] MCHC (RBC) [Mass/Vol] 32.0 g/dL 28.4 - 34.8 g/dL [facility] MCV (RBC) [Entitic vol] 87.0 fL 82.6 - 102.9 fL [facility] Monocytes/100 WBC (Bld) 6 % 3 - 12 % [facility] Monocytes/100 WBC (Bld) 0.27 % [facility] Neutrophils/100 WBC (Bld) 53 % 36 - 65 % [facility] Nucleated RBC/100 WBC (Bld) [Ratio] 0.0 % 0.0 per 100 WBC [facility] Platelet mean volume (Bld) [Entitic vol] 9.9 fL 8.1 - 13.5 fL [facility] Platelets (Bld) [#/Vol] 259 10*3/uL [facility] RBC (Bld) [#/Vol] 4.63 10*6/uL 3.95 - 5.1 1 m/uL [facility] Segmented neutrophils/100 WBC (Bld) 2.58 % [facility] WBC other (Bld) [#/Vol] 4.8 [facility] CBC with Diffon 04-02-2024 Abs. Basophil 0.04 k/uL Normal 0.00-0.20 [facility] Comment on above: Performed By: #### C DP #### [address] [place] [address] Wheel Loader Operator: Lakhwinder Tim MD Abs.Imm.Granulocyte <0.03 Normal 0.00-0.30 [facility] Comment on above: Performed By: #### C DP #### [address] [place], [facility]83 Wheel Loader Operator: Lakhwinder Tim MD Abs.Neutrophil (Seg) 2.58 k/uL Normal 1.50-8.10 [facility] Comment on above: Performed By: #### C DP #### [address] [place], [place] [phone] Wheel Loader Operator: Lakhwinder Tim MD Basophils/100 WBC (Bld) 1 % Normal 0-2 [facility] Comment on above: Performed By: #### C DP #### [facility] [address] [place] [address] Dr. [place], [place] [phone] Wheel Loader Operator: Lakhwinder Tim MD Eosinophils (Bld) [#/Vol] 0.07 10*3/uL Normal 0.00-0.44 [facility] Comment on above: Performed By: #### C DP #### [address] [place], [place] 1338483 Wheel Loader Operator: Lakhwinder Tim MD Eosinophils/100 WBC (Bld) 2 % Normal 1-4 [facility] Comment on above: Performed By: #### C DP #### [facility] [address] [place], [place] [phone] Wheel Loader Operator: Lakhwinder Tim MD Erythrocyte distribution width (RBC) [Ratio] 13.7 % Normal 11.8-14.4 [facility] Comment on above: Performed By: #### C DP #### [facility] [address] [place], [place] 8135583 Wheel Loader Operator: Lakhwinder Tim MD Hematocrit (Bld) [Volume fraction] 40.3 % Normal 36.3-47.1 [facility] Comment on above: Performed By: #### C DP #### [facility] [address] [place], [place] 0560583 Wheel Loader Operator: Lakhwinder Tim MD Hemoglobin (Bld) [Mass/Vol] 12.9 g/dL Normal 11.9-15.1 [facility] Comment on above: Performed By: #### C DP #### [facility] [address] [place], [place] [phone] Wheel Loader Operator: Lakhwinder Tim MD Immature granulocytes/100 WBC (Bld) 0 % Normal 0 [facility] Comment on above: Performed By: #### C DP #### [facility] [address] [place], [facility]83 Wheel Loader Operator: Lakhwinder Tim MD Lymphocytes (Bld) [#/Vol] 1.81 10*3/uL Normal 1.10-3.70 [facility] Comment on above: Performed By: #### C DP #### [facility] [address] [place], [place] 1468483 Wheel Loader Operator: Lakhwinder Tim MD Lymphocytes/100 WBC (Bld) 38 % Normal 24-43 [facility] Comment on above: Performed By: #### C DP #### [facility] [address] [place] [address] Wheel Loader Operator: Lakhwinder Tim MD MCH (RBC) [Entitic mass] 27.9 pg Normal 25.2-33.5 [facility] Comment on above: Performed By: #### C DP #### [facility] [address] [place] [address] [place] [address] Wheel Loader Operator: Lakhwinder Tim MD MCHC (RBC) [Mass/Vol] 32.0 g/dL Normal 28.4-34.8 [facility] Comment on above: Performed By: #### C DP #### [address] [place] [address] Wheel Loader Operator: Lakhwinder Tim MD MCV (RBC) [Entitic vol] 87.0 fL Normal 82.6-102.9 [facility] Comment on above: Performed By: #### C DP #### [address] [place], [facility]83 Wheel Loader Operator: Lakhwinder Tim MD Monocytes (Bld) [#/Vol] 0.27 10*3/uL Normal 0.10-1.20 [facility] Comment on above: Performed By: #### C DP #### [facility] [address] [place] [address] Dr. [place], [place] 7796583 Wheel Loader Operator: Lakhwinder Tim MD Monocytes/100 WBC (Bld) 6 % Normal 3-12 [facility] Comment on above: Performed By: #### C DP #### [facility] [address] [place] [address] [place] [address] Wheel Loader Operator: Lakhwinder Tim MD Neutrophil (Seg) 53 % Normal 36-65 [facility] Comment on above: Performed By: #### C DP #### [facility] [address] [place] [address] [place] [address] Wheel Loader Operator: Lakhwinder Tim MD NRBC Automated 0.0 per [address] [facility] Comment on above: Performed By: #### C DP #### [facility] [address] [place], [place] 5078083 Wheel Loader Operator: Lakhwinder Tim MD Platelet mean volume (Bld) [Entitic vol] 9.9 fL Normal 8.1-13.5 [facility] Comment on above: Performed By: #### C DP #### [address] [place] [facility]83 Wheel Load[employer] Operator: Lakhwinder Tim MD Platelets (Bld) [#/Vol] 259 10*3/uL Normal 138-453 [facility] Comment on above: Performed By: #### C DP #### [address] [place] [address] Wheel Loader Operator: Lakhwinder Tim MD RBC (Bld) [#/Vol] 4.63 10*6/uL Normal 3.95-5.11 [facility] Comment on above: Performed By: #### C DP #### [address] [place], [facility]83 Wheel Loader Operator: Lakhwinder Tim MD WBC (Bld) [#/Vol] 4.8 10*3/uL Normal 3.5-11.3 [facility] Comment on above: Performed By: #### C DP #### [address] [place], [facility]83 Wheel Loader Operator: Lakhwinder Tim MD CT ABDOMEN PELVIS [...] COMPARISON: None HISTORY: ORDERING SYSTEM PROVIDED HISTORY: [facility] abdominal pain TECHNOLOGIST PROVIDED HISTORY: [facility] abdominal pain Decision Support Exception - [...] Opal Henry MD 04/02/[address] [facility] Comp Metabolic Profon 2023 Albumin [Mass/Vol] 4.7 g/dL Normal 3.5-5.2 [facility] Comment on above: Performed By: #### U MICAO, UAX #### [facility] [address] [place] [address] Wheel Loader Operator: Lakhwinder Tim MD Albumin/Glob Ratio 1.6 Normal 1.0-2.5 [facility] Comment on above: Performed By: #### U MICAO, UAX #### [facility] [address] [place] [address] Wheel Loader Operator: Lakhwinder Tim MD Alkaline Phos 60 U/L Normal 35-104 [facility] Comment on above: Performed By: #### U MICAO, UAX #### [facility] [address] [place] [address] Wheel Loader Operator: Lakhwinder Tim MD ALT [Catalytic activity/Vol] 9 U/L Low 10-35 [facility] Comment on above: Performed By: #### U MICAO, UAX #### [facility] [address] [place] [address] Wheel Loader Operator: Lakhwinder Tim MD Anion gap [Moles/Vol] 9 mmol/L Normal 9-16 [facility] Comment on above: Performed By: #### U MICAO, UAX #### [facility] [address] [place], [place] 5275183 Wheel Loader Operator: Lakhwinder Tim MD AST [Catalytic activity/Vol] 16 U/L Normal 10-35 [facility] Comment on above: Performed By: #### U MICAO, UAX #### [facility] [address] [place], [place] 2378783 Wheel Loader Operator: Lakhwinder Tim MD Bilirubin [Mass/Vol] 0.3 mg/dL Normal 0.00-1.20 [facility] Comment on above: Performed By: #### U OSMINO, UAX #### [facility] [address] [place] [address] [place]. [place], [place] 8006083 Wheel Loader Operator: Lakhwinder Tim MD BUN/CRE Ratio 12 Normal 9-20 [facility] Comment on above: Performed By: #### U OSMINO, UAX #### [facility] [address] [place] [address] Dr. [place], [place] 6030883 Wheel Loader Operator: Lakhwinder Tim MD Calcium [Mass/Vol] 9.4 mg/dL Normal 8.6-10.4 [facility] Comment on above: Performed By: #### U MICAO, UAX #### [facility] [address] [place], [place] 3076683 Wheel Loader Operator: Lakhwinder Tim MD Chloride [Moles/Vol] 104 mmol/L Normal 98-107 [facility] Comment on above: Performed By: #### U MICAO, UAX #### [facility] [address] [place] [address] Wheel Loader Operator: Lakhwinder Tim MD CO2 [Moles/Vol] 26 mmol/L Normal 20-31 [facility] Comment on above: Performed By: #### U KARINA, UAX #### [facility] [address] [place] [address] Wheel Loader Operator: Lakhwinder Tim MD Creatinine [Mass/Vol] 0.5 mg/dL Normal 0.50-0.90 [facility] Comment on above: Performed By: #### U KARINA UAX #### [facility] [address] [place] [address] Wheel Loader Operator: Lakhwinder Tim MD GFR/1.73 sq M.predicted among non-blacks MDRD (S/P/Bld) [Vol rate/Area] mL/min/{1.73_m2} Normal >60 [facility] Comment on above: Result Comment: These [...] affects renal tubular secretion. Performed By: #### Josesito COLLINS UAX #### [facility] [address] [place] [address] Wheel Loader Operator: Lakhwinder Tim MD Glucose [Mass/Vol] 88 mg/dL Normal 74-99 [facility] Comment on above: Performed By: #### U KARINA UAX #### [facility] [address] [place] [address] Wheel Loader Operator: Lakhwinder Tim MD Potassium [Moles/Vol] 3.7 mmol/L Normal 3.7-5.3 [facility] Comment on above: Performed By: #### U KARINA, UAX #### [facility] [address] [place] [address] Wheel Loader Operator: Lakhwinder Tim MD Protein [Mass/Vol] 7.8 g/dL Normal 6.6-8.7 [facility] Comment on above: Performed By: #### U OSMINO, UAX #### [facility] [address] [place] [address] Wheel Loader Operator: Lakhwinder Tim MD Sodium [Moles/Vol] 139 mmol/L Normal 136-145 [facility] Comment on above: Performed By: #### U KARINA, UAX #### [facility] [address] [place] [address] Wheel Loader Operator: Lakhwinder Tim MD Urea nitrogen [Mass/Vol] 6 mg/dL Normal 6-20 [facility] Comment on above: Performed By: #### U KARINA, UAX #### [facility] [address] [place] [address] Wheel Loader Operator: Lakhwinder Tim MD [facility] Metabolic [facility] 04-02-2024 Albumin [Mass/Vol] 4.7 g/dL 3.5 - 5.2 g/dL [facility] Albumin/Globulin [Mass ratio] 1.6 {ratio} 1.0 - 2.5 [facility] ALP [Catalytic activity/Vol] 60 U/L 35 - 104 U/L [facility] ALT [Catalytic activity/Vol] 9 U/L Low 10 - 35 U/L [facility] Anion gap [Moles/Vol] 9 mmol/L 9 - 16 mmol/L [facility] AST [Catalytic activity/Vol] 16 U/L 10 - 35 U/L [facility] Bilirubin [Mass/Vol] 0.3 mg/dL 0.00 - 1.20 mg/dL [facility] Calcium [Mass/Vol] 9.4 mg/dL 8.6 - 10. 4 mg/dL [facility] Chloride [Moles/Vol] 104 mmol/L 98 - 10 7 mmol/L [facility] CO2 [Moles/Vol] 26 mmol/L 20 - 31 mmol/L [facility] Creatinine [Mass/Vol] 0.5 mg/dL 0.50 - 0.90 mg/dL [facility] Est, Love Van Rate - PINF [facility] Comment on above: These results are [...] [Mass/Vol] 88 mg/dL 74 - 99 mg/dL [facility] Interpretation and review of laboratory results Abnormal [facility] Potassium [Moles/Vol] 3.7 mmol/L 3.7 - 5.3 mmol/L [facility] Protein [Mass/Vol] 7.8 g/dL 6.6 - 8.7 g/dL [facility] Sodium [Moles/Vol] 139 mmol/L 136 - 145 mmol/L [facility] Urea nitrogen [Mass/Vol] 6 mg/dL 6 - 20 mg/dL [facility] Urea nitrogen/Creatinine [Mass ratio] 12 mg/mg 9 - 20 [facility] Lactic Acidon 04-02-2024 Lactate [Moles/Vol] 1.4 mmol/L Normal 0.5-2.2 [facility] Comment on above: Performed By: #### U MICAJudy UAX #### [facility] [address] [place] [address] Wheel Loader Operator: Lakhwinder Tim MD Lactate (BldV) [Moles/Vol] 1.4 mmol/L 0.5 - 2.2 mmol/L [facility] Microscopic Urinalysison Epithelial cells LM.HPF (Urine sed) [#/Area] 0 TO 2 [facility] RBC LM.HPF (Urine sed) [#/Area] 0 TO 2 [facility] WBC LM.HPF (Urine sed) [#/Area] 0 TO 2 [facility] UA w/Reflex Cultureon 2023 Bilirubin, SemiQt,Ur Negative Normal NEG [facility] Comment on above: Performed By: #### U MICAO, UAX #### [facility] [address] [place], [place] [phone] Wheel Loader Operator: Lakhwinder Tim MD Blood, Urine Negative Normal NEG [facility] Comment on above: Performed By: #### U MICAO, UAX #### [facility] [address] [place], [place] 9043183 Wheel Loader Operator: Lakhwinder Tim MD Clarity (U) Clear Normal CLEAR [facility] Comment on above: Performed By: #### U MICAO, UAX #### [facility] [address] [place] [address] Dr[place], [place] 1474383 Wheel Load[employer] Operator: Lakhwinder Tim MD Color (U) Yellow Normal YEL [facility] Comment on above: Performed By: #### U MICAO, UAX #### [facility] [address] [place] [address] Dr. [place], [place] 6724183 Wheel [employer] Operator: Lakhwinder Tim MD Glucose Ql (U) Negative Normal NEG [facility] Comment on above: Performed By: #### U MICAO, UAX #### [address] [place] [address] Wheel Loader Operator: Lakhwinder Tim MD Ketones Ql (U) Negative Normal NEG [facility] Comment on above: Performed By: #### U MICAO, UAX #### [facility] [address] [place] [address] [place] [address] Wheel Loader Operator: Lakhwinder Tim MD Leukocyte esterase Test strip Ql (U) Negative Normal NEG [facility] Comment on above: Performed By: #### U MICAO, UAX #### [facility] [address] [place] [address] [place], [place] 2847083 Wheel Loader Operator: Lakhwinder Tim MD Nitrite,Ur Negative Normal [facility] Comment on above: Performed By: #### U MICAO, UAX #### [facility] [address] [place], [place] 9972983 Wheel Loader Operator: Lakhwinder Tim MD PH,Ur 8.0 Normal 5.0-9.0 [facility] Comment on above: Performed By: #### U MICAO, UAX #### [facility] [address] [place] [address] Wheel Loader Operator: Lakhwinder Tim MD Protein Ql (U) Negative Normal NEG [facility] Comment on above: Performed By: #### U MICAO, UAX #### [facility] [address] [place], [place] 3247383 Wheel Loader Operator: Lakhwinder Tim MD Spec. Fork,Ur 1.020 Normal 1.010-1.020 [facility] Comment on above: Performed By: #### U MICAO, UAX #### [facility] [address] [place], [place] 6580483 Wheel Loader Operator: Lakhwinder Tim MD Urobilinogen,Ur Normal Normal 0.0-1.0 [facility] Comment on above: Performed By: #### U MICAO, UAX #### [address] [place], [place] [id number] Wheel Loader Operator: Lakhwinder Tim MD US NON OB [...] Yasir Bertrand MD 04/02/[address] [facility] US Pelvis transvaginalon 1. Patient status [...] of the lesion and patient's premenopausal status. [facility] RIS CONSOLIDATED EXAMINATION: TRANSVAGINAL PELVIC ULTRASOUND WITH [...] Free Fluid: No evidence of free fluid. [facility] RIS Yasir Garza MD - 04/02/2024 EXAMINATION: TRANSVAGINAL PELVIC ULTRASOUND [...] of the lesion and patient's premenopausal status. [facility] Radiology Study observation (narrative) [facility] US Pelvis transvaginalOrdere d By: Yasir Bertrand on 04-02-2024 [facility] Work Phone: Urinalysis with Reflex to Cu ltureon 04-02-2024 Bilirubin Ql (U) Negative NEGATIVE [facility] Clarity (U) Clear Clear [facility] Color (U) Yellow Yellow [facility] Glucose Test strip (U) [Mass/Vol] Negative NEGATIVE mg/dL [facility] Hemoglobin Auto test strip Ql (U) Negative NEGATIVE [facility] Ketones (U) [Mass/Vol] Negative NEGATIVE mg/dL [facility] Leukocyte esterase Test strip Ql (U) Negative NEGATIVE [facility] Nitrite Ql (U) Negative NEGATIVE [facility] pH (U) 8.0 [pH] 5.0 - 9.0 [facility] Protein (U) [Mass/Vol] Negative NEGATIVE mg/dL [facility] Specific gravity (U) [Rel density] 1.020 1.010 - 1.020 [facility] Urobilinogen Qn (U) Normal 0.0 - 1. 0 EU/dL [facility] Urinalysis,Microon 4 Epithelial cells LM Ql (Urine sed) 0 TO 2 Normal 0-25 [facility] Comment on above: Performed By: #### U MICAO, UAX #### [facility] [address] [place] [address] Wheel Loader Operator: Lakhwinder Tim MD Urine RBC's 0 TO 2 Normal 0-2 [facility] Comment on above: Performed By: #### U MICAO, UAX #### [facility] [address] [place] [address] Wheel Loader Operator: Lakhwinder Tim MD Urine WBC's 0 TO 2 Normal 0-5 [facility] Comment on above: Performed By: #### U KARINA, UAX #### [facility] [address] [place] [address] Wheel Loader Operator: Lakhwinder Tim MD CBC with Diffon 03-17-2024 Basophils (Bld) [#/Vol] [facility] Basophils/100 WBC (Bld) 0 % 0 - 2 % [facility] Eosinophils (Bld) [#/Vol] 0.08 10*3/uL [facility] Eosinophils/100 WBC (Bld) 2 % 1 - 4 % [facility] Erythrocyte distribution width (RBC) [Ratio] 13.6 % 11.8 - 14.4 % [facility] Hematocrit (Bld) [Volume fraction] 35.9 % Low 36.3 - 47.1 % [facility] Hemoglobin (Bld) [Mass/Vol] 12.0 g/dL 11.9 - 15.1 g/dL [facility] Immature granulocytes (Bld) [#/Vol] [facility] Immature granulocytes/100 WBC (Bld) 0 % 0 [facility] Interpretation and review of laboratory results Abnormal [facility] Lymphocytes/100 WBC (Bld) 37 % 24 - 43 % [facility] Lymphocytes/100 WBC (Bld) 1.59 % [facility] MCH (RBC) [Entitic mass] 28.5 pg 25.2 - 33.5 pg [facility] MCHC (RBC) [Mass/Vol] 33.4 g/dL 28.4 - 34.8 g/dL [facility] MCV (RBC) [Entitic vol] 85.3 fL 82.6 - 102.9 fL [facility] Monocytes/100 WBC (Bld) 8 % 3 - 12 % [facility] Monocytes/100 WBC (Bld) 0.32 % [facility] Neutrophils/100 WBC (Bld) 53 % 36 - 65 % [facility] Nucleated RBC/100 WBC (Bld) [Ratio] 0.0 % 0.0 per 100 WBC [facility] Platelet mean volume (Bld) [Entitic vol] 10.6 fL 8.1 - 13.5 fL [facility] Platelets (Bld) [#/Vol] 202 10*3/uL [facility] RBC (Bld) [#/Vol] 4.21 10*6/uL 3.95 - 5.1 1 m/uL [facility] Segmented neutrophils/100 WBC (Bld) 2.26 % [facility] WBC other (Bld) [#/Vol] 4.3 [facility] Abs. Basophil <0.03 Normal 0.00-0.20 [facility] Comment on above: Performed By: #### C P, LIP, CDP #### [address] [place] [id number] Wheel Loader Operator: Lakhwinder Tim MD Abs.Imm.Granulocyte <0.03 Normal 0.00-0.30 [facility] Comment on above: Performed By: #### C P, LIP, CDP #### [address] [place] [id number] Wheel Loader Operator: Lakhwinder Tim MD Abs.Neutrophil (Seg) 2.26 k/uL Normal 1.50-8.10 [facility] Comment on above: Performed By: #### C P, LIP, CDP #### [address] [place], [facility] Wheel Loader Operator: Lakhwinder Tim MD Basophils/100 WBC (Bld) 0 % Normal 0-2 [facility] Comment on above: Performed By: #### C P, LIP, CDP #### [address] [place] [address] Wheel Loader Operator: Lakhwinder Tim MD Eosinophils (Bld) [#/Vol] 0.08 10*3/uL Normal 0.00-0.44 [facility] Comment on above: Performed By: #### C P, LIP, CDP #### [facility] [address] [place], [facility]83 Wheel Loader Operator: Lakhwinder Tim MD Eosinophils/100 WBC (Bld) 2 % Normal 1-4 [facility] Comment on above: Performed By: #### C P, LIP, CDP #### [address] [place], [facility]83 Wheel Loader Operator: Lakhwinder Tim MD Erythrocyte distribution width (RBC) [Ratio] 13.6 % Normal 11.8-14.4 [facility] Comment on above: Performed By: #### C P, LIP, CDP #### [address] [place] [id number] Wheel Loader Operator: Lakhwinder Tim MD Hematocrit (Bld) [Volume fraction] 35.9 % Low 36.3-47.1 [facility] Comment on above: Performed By: #### C P, LIP, CDP #### [address] [place], [facility]83 Wheel Loader Operator: Lakhwinder Tim MD Hemoglobin (Bld) [Mass/Vol] 12.0 g/dL Normal 11.9-15.1 [facility] Comment on above: Performed By: #### C P, LIP, CDP #### [address] [place], [facility] Wheel Loader Operator: Lakhwinder Tim MD Immature granulocytes/100 WBC (Bld) 0 % Normal 0 [facility] Comment on above: Performed By: #### C P, LIP, CDP #### [address] [place], [facility]83 Wheel Loader Operator: Lakhwinder Tim MD Lymphocytes (Bld) [#/Vol] 1.59 10*3/uL Normal 1.10-3.70 [facility] Comment on above: Performed By: #### C P, LIP, CDP #### [address] [place] [facility]83 Wheel Loader Operator: Lakhwinder Tim MD Lymphocytes/100 WBC (Bld) 37 % Normal 24-43 [facility] Comment on above: Performed By: #### C P, LIP, CDP #### [facility] [address] [place], [facility]83 Wheel Loader Operator: Lakhwinder Tim MD MCH (RBC) [Entitic mass] 28.5 pg Normal 25.2-33.5 [facility] Comment on above: Performed By: #### C P, LIP, CDP #### [facility] [address] [place] [id number] Wheel Loader Operator: Lakhwinder Tim MD MCHC (RBC) [Mass/Vol] 33.4 g/dL Normal 28.4-34.8 [facility] Comment on above: Performed By: #### C P, LIP, CDP #### [facility] [address] [place], [facility]83 Wheel Loader Operator: Lakhwinder Tim MD MCV (RBC) [Entitic vol] 85.3 fL Normal 82.6-102.9 [facility] Comment on above: Performed By: #### C P, LIP, CDP #### [address] [place] [id number] Wheel Loader Operator: Lakhwinder Tim MD Monocytes (Bld) [#/Vol] 0.32 10*3/uL Normal 0.10-1.20 [facility] Comment on above: Performed By: #### C P, LIP, CDP #### [facility] [address] [place] [address] Wheel Loader Operator: Lakhwinder Tim MD Monocytes/100 WBC (Bld) 8 % Normal 3-12 [facility] Comment on above: Performed By: #### C P, LIP, CDP #### [facility] [address] [place], [facility]83 Wheel Loader Operator: Lakhwinder Tim MD Neutrophil (Seg) 53 % Normal 36-65 [facility] Comment on above: Performed By: #### C P, LIP, CDP #### [facility] [address] [place], [place] [phone] Wheel Loader Operator: Lakhwinder Tim MD NRBC Automated 0.0 per [address] [facility] Comment on above: Performed By: #### C P, LIP, CDP #### [facility] [address] [place], [place] [phone] Wheel Loader Operator: Lakhwinder Tim MD Platelet mean volume (Bld) [Entitic vol] 10.6 fL Normal 8.1-13.5 [facility] Comment on above: Performed By: #### C P, LIP, CDP #### [address] [place], [place] [phone] Wheel Loader Operator: Lakhwinder Tim MD Platelets (Bld) [#/Vol] 202 10*3/uL Normal 138-453 [facility] Comment on above: Performed By: #### C P, LIP, CDP #### [address] [place] [address] Wheel Loader Operator: Lakhwinder Tim MD RBC (Bld) [#/Vol] 4.21 10*6/uL Normal 3.95-5.11 [facility] Comment on above: Performed By: #### C P, LIP, CDP #### [facility] [address] [place], [place] [phone] Wheel Loader Operator: Lakhwinder Tim MD WBC (Bld) [#/Vol] 4.3 10*3/uL Normal 3.5-11.3 [facility] Comment on above: Performed By: #### C P, LIP, CDP #### [facility] [address] [place] [address] Wheel Loader Operator: Lakhwinder Tim MD CMPon 03-17-2024 Albumin [Mass/Vol] 4.4 g/dL 3.5 - 5.2 g/dL [facility] Albumin/Globulin [Mass ratio] 1.4 {ratio} 1.0 - 2.5 [facility] ALP [Catalytic activity/Vol] 66 U/L 35 - 104 U/L [facility] ALT [Catalytic activity/Vol] 9 U/L Low 10 - 35 U/L [facility] Anion gap [Moles/Vol] 9 mmol/L 9 - 16 mmol/L [facility] AST [Catalytic activity/Vol] 18 U/L 10 - 35 U/L [facility] Bilirubin [Mass/Vol] mg/dL 0.00 - 1.20 mg/dL [facility] Calcium [Mass/Vol] 9.2 mg/dL 8.6 - 10. 4 mg/dL [facility] Chloride [Moles/Vol] 104 mmol/L 98 - 10 7 mmol/L [facility] CO2 [Moles/Vol] 24 mmol/L 20 - 31 mmol/L [facility] Creatinine [Mass/Vol] 0.6 mg/dL 0.50 - 0.90 mg/dL [facility] Est, Love [place] Rate - PINF [facility] Comment on above: These results [...] [Mass/Vol] 86 mg/dL 74 - 99 mg/dL [facility] Interpretation and review of laboratory results Abnormal [facility] Potassium [Moles/Vol] 3.8 mmol/L 3.7 - 5.3 mmol/L [facility] Protein [Mass/Vol] 7.6 g/dL 6.6 - 8.7 g/dL [facility] Sodium [Moles/Vol] 137 mmol/L 136 - 145 mmol/L [facility] Urea nitrogen [Mass/Vol] 9 mg/dL 6 - 20 mg/dL [facility] Urea nitrogen/Creatinine [Mass ratio] 15 mg/mg 9 - [address] [facility] [address] ABDOMEN PELVIS W IV CONTR [...] COMPARISON: 02/07/2024 HISTORY: ORDERING SYSTEM PROVIDED HISTORY: abd pain TECHNOLOGIST PROVIDED HISTORY: [facility] pain Decision Support Exception - unselect [...] Wily Kumar MD 03/17/[address] [facility] CT Abdomen and Pelvis W cont rast Alexsander 03-17-2024 1. No direct evidenc e for acute infective or inflammatory process. 2. A 4.8 cm right adnexal cyst was previously 2.4 cm. Size and features would support benign functional cyst. Pelvic ultrasound may be considered in light of change in size, patient sentence and fat stranding. [facility] EXAMINATION: CT OF THE ABDOMEN AND [...] COMPARISON: 02/07/2024 HISTORY: ORDERING SYSTEM PROVIDED HISTORY: abd pain TECHNOLOGIST PROVIDED HISTORY: abd pain Decision Support Exception - unselect if [...] superficial soft tissues show no acute process. [facility] Wily Kumar MD - [...] COMPARISON: 02/07/2024 HISTORY: ORDERING SYSTEM PROVIDED HISTORY: abd pain TECHNOLOGIST PROVIDED HISTORY: abd pain Decision Support Exception - unselect if [...] in size, patient sentence and fat stranding. [facility] Radiology Study observation (narrative) [facility] CT Abdomen and Pelvis W cont rast IVOrdered By: Wily Kumar on 03-17-2024 [facility] Work Phone: Comp Metabolic Profon 2023 Albumin [Mass/Vol] 4.4 g/dL Normal 3.5-5.2 [facility] Comment on above: Performed By: #### C P, LIP, CDP #### [facility] [address] [place] [address] Wheel Loader Operator: Lakhwinder Tim MD Albumin/Glob Ratio 1.4 Normal 1.0-2.5 [facility] Comment on above: Performed By: #### C P, LIP, CDP #### [facility] [address] [place] [address] Wheel Loader Operator: Lakhwinder Tim MD Alkaline Phos 66 U/L Normal 35-104 [facility] Comment on above: Performed By: #### C P, LIP, CDP #### [facility] [address] [place] [address] Wheel Loader Operator: Lakhwinder Tim MD ALT [Catalytic activity/Vol] 9 U/L Low -35 [facility] Comment on above: Performed By: #### C P, LIP, CDP #### [facility] [address] [place] [address] Wheel Loader Operator: Lakhwinder Tim MD Anion gap [Moles/Vol] 9 mmol/L Normal 9-16 [facility] Comment on above: Performed By: #### C P, LIP, CDP #### [facility] [address] [place] [address] Wheel Loader Operator: Lakhwinder Tim MD AST [Catalytic activity/Vol] 18 U/L Normal -35 [facility] Comment on above: Performed By: #### C P, LIP, CDP #### [facility] [address] [place], [place] [phone] Wheel Loader Operator: Lakhwinder Tim MD Bilirubin [Mass/Vol] mg/dL Normal 0.00-1.20 [facility] Comment on above: Performed By: #### C P, LIP, CDP #### [facility] [address] [place] [address] Wheel Loader Operator: Lakhwinder Tim MD BUN/CRE Ratio 15 Normal 9-20 [facility] Comment on above: Performed By: #### C P, LIP, CDP #### [facility] [address] [place], [place] [phone] Wheel Loader Operator: Lakhwinder Tim MD Calcium [Mass/Vol] 9.2 mg/dL Normal 8.6-10.4 [facility] Comment on above: Performed By: #### C P, LIP, CDP #### [facility] [address] [place] [address] Wheel Loader Operator: Lakhwinder Tim MD Chloride [Moles/Vol] 104 mmol/L Normal 98-107 [facility] Comment on above: Performed By: #### C P, LIP, CDP #### [facility] [address] [place] [address] Wheel Loader Operator: Lakhwinder Tim MD CO2 [Moles/Vol] 24 mmol/L Normal 20-31 [facility] Comment on above: Performed By: #### C P, LIP, CDP #### [facility] [address] [place] [address] Wheel Loader Operator: Lakhwinder Tim MD Creatinine [Mass/Vol] 0.6 mg/dL Normal 0.50-0.90 [facility] Comment on above: Performed By: #### C P, LIP, CDP #### [facility] [address] [place] [address] Wheel Loader Operator: Lakhwinder Tim MD GFR/1.73 sq M.predicted among non-blacks MDRD (S/P/Bld) [Vol rate/Area] mL/min/{1.73_m2} Normal >60 [facility] Comment on above: Result Comment: These [...] By: #### C P, LIP, CDP #### [facility] [address] [place] [address] Wheel Loader Operator: Lakhwinder Tim MD Glucose [Mass/Vol] 86 mg/dL Normal 74-99 [facility] Comment on above: Performed By: #### C P, LIP, CDP #### [facility] [address] [place] [address] Wheel Loader Operator: Lakhwinder Tim MD Potassium [Moles/Vol] 3.8 mmol/L Normal 3.7-5.3 [facility] Comment on above: Performed By: #### C P, LIP, CDP #### [facility] [address] [place] [address] Wheel Loader Operator: Lakhwinder Tim MD Protein [Mass/Vol] 7.6 g/dL Normal 6.6-8.7 [facility] Comment on above: Performed By: #### C P, LIP, CDP #### [facility] [address] [place], [place] [phone] Wheel Loader Operator: Lakhwinder Tim MD Sodium [Moles/Vol] 137 mmol/L Normal 136-145 [facility] Comment on above: Performed By: #### C P, LIP, CDP #### [address] [place] [address] Wheel Loader Operator: Lakhwinder Tim MD Urea nitrogen [Mass/Vol] 9 mg/dL Normal 6-20 [facility] Comment on above: Performed By: #### C P, LIP, CDP #### [address] [place], [place] [id number] Wheel Loader Operator: Lakhwinder Tim MD Lactic Acidon 03-17-2024 Lactate (BldV) [Moles/Vol] 0.9 mmol/L 0.5 - 2.2 mmol/L [facility] Lactate [Moles/Vol] 0.9 mmol/L Normal 0.5-2.2 [facility] Comment on above: Performed By: #### C P, LIP, CDP #### [address] [place], [place] [id number] Wheel Loader Operator: Lakhwinder Tim MD Lipaseon 03-17-2024 Lipase [Catalytic activity/Vol] 17 U/L 13 - 60 U/L [facility] Lipase [Catalytic activity/Vol] 17 U/L Normal 13-60 [facility] Comment on above: Performed By: #### C P, LIP, CDP #### [address] [place] [address] Wheel Loader Operator: Lakhwinder Tim MD Microscopic Urinalysison Epithelial cells LM.HPF (Urine sed) [#/Area] 0 TO 2 [facility] RBC LM.HPF (Urine sed) [#/Area] 0 TO 2 [facility] WBC LM.HPF (Urine sed) [#/Area] None [facility] No Panel Informationon 03-17 [facility] UA w/Reflex Cultureon 2023 Bilirubin, SemiQt,Ur Negative Normal NEG [facility] Comment on above: Performed By: #### C DP #### [facility] [address] [place] [address] [place] [address] Wheel Loader Operator: Lakhwinder Tim MD Blood, Urine TRACE Abnormal NEG [facility] Comment on above: Performed By: #### C DP #### [address] [place] [address] Wheel Loader Operator: Lakhwinder Tim MD Clarity (U) Clear Normal CLEAR [facility] Comment on above: Performed By: #### C DP #### [address] [place] [address] Wheel Loader Operator: Lakhwinder Tim MD Color (U) Yellow Normal YEL [facility] Comment on above: Performed By: #### C DP #### [facility] [address] [place] [address] [place] [address] Wheel Loader Operator: Lakhwinder Tim MD Glucose Ql (U) Negative Normal NEG [facility] Comment on above: Performed By: #### C DP #### [address] [place] [address] Wheel Loader Operator: Lakhwinder Tim MD Ketones Ql (U) Negative Normal NEG [facility] Comment on above: Performed By: #### C DP #### [facility] [address] [place] [address] [place], [place] [id number] Wheel Loader Operator: Lakhwinder Tim MD Leukocyte esterase Test strip Ql (U) Negative Normal NEG [facility] Comment on above: Performed By: #### C DP #### [facility] [address] [place], [place] [phone] Wheel Loader Operator: Lakhwinder Tim MD Nitrite,Ur Negative Normal NEG [facility] Comment on above: Performed By: #### C DP #### [facility] [address] [place], [place] 9[address]83 Wheel Loader Operator: Lakhwinder Tim MD PH,Ur 6.5 Normal 5.0-9.0 [facility] Comment on above: Performed By: #### C DP #### [facility] [address] [place], [place] [address]83 Wheel Loader Operator: Lakhwinder Tim MD Protein Ql (U) Negative Normal NEG [facility] Comment on above: Performed By: #### C DP #### [facility] [address] [place] [address] [place], [place] 7634083 Wheel Loader Operator: Lakhwinder Tim MD Spec. Fork,Ur 1.015 Normal 1.010-1.020 [facility] Comment on above: Performed By: #### C DP #### [address] [place], [place] [address]58[address]83 Wheel Loader Operator: Lakhwinder Tim MD Urobilinogen,Ur Normal Normal 0.0-1.0 [facility] Comment on above: Performed By: #### C DP #### [facility] [address] [place] [address] Wheel Loader Operator: Lakhwinder Tim MD US NON OB [...] Carlos Tatum MD 03/17/[address] [facility] Urinalysis with Reflex to Cu ltureon 03-17-2024 Bilirubin Ql (U) Negative NEGATIVE [facility] Glucose Test strip (U) [Mass/Vol] Negative NEGATIVE mg/dL [facility] Hemoglobin Auto test strip Ql (U) TRACE Abnormal NEGATIVE [facility] Interpretation and review of laboratory results Abnormal [facility] Ketones (U) [Mass/Vol] Negative NEGATIVE mg/dL [facility] Nitrite Ql (U) Negative NEGATIVE [facility] pH (U) 6.5 [pH] 5.0 - 9.0 [facility] Protein (U) [Mass/Vol] Negative NEGATIVE mg/dL [facility] Specific gravity (U) [Rel density] 1.015 1.010 - 1.020 [facility] Urobilinogen Qn (U) Normal 0.0 - 1. 0 EU/dL [facility] Urinalysis,Microon 4 Epithelial cells LM Ql (Urine sed) 0 TO 2 Normal 0-25 [facility] Comment on above: Performed By: #### C DP #### [facility] [address] [place] [address] Wheel Loader Operator: Lakhwinder Tim MD Urine RBC's 0 TO 2 Normal 0-2 [facility] Comment on above: Performed By: #### C DP #### [facility] [address] [place] [address] Wheel Loader Operator: Lakhwinder Tim MD Urine WBC's None Normal 0-5 [facility] Comment on above: Performed By: #### C DP #### [facility] [address] [place] [address] Wheel Loader Operator: Lakhwinder Tim MD [id number] 03-10-2024 SARS-CoV-2 (COVID-19) RNA MARICEL+probe Ql (Unsp spec) Detected Abnormal NOTDET [facility] Comment on above: Result Comment: Rapid [...] this assay. Fact sheet for Healthcare Providers: https://www.fda.gov/media/231479/download Fact sheet for Patients: https://www.fda.gov/media/218867/download Methodology: Isothermal Nucleic Acid Amplification Results reported to the appropriate Health Department Performed By: #### U JERALD COLLINS #### [facility] [address] [place] [address] Wheel Loader Operator: Lakhwinder Tim MD BLOOD CULTUREon 02-07-2024 Bacteria identified Aer cx Nom (Bld) SPECIMEN NOTES SUBOPTIMAL VOLUME OF BLOOD COLLECTED, RESULTS MAY BE AFFECTED. CULTURE RESULTS NO GROWTH 5 DAYS Normal [facility] Comment on above: Performed By: #### C BCA, 13029-8, PINR, [id number], CMP #### [facility] ([id number]) [address], [address] [place] [address] Bacteria identified Aer cx Nom (Bld) CULTURE RESULTS NO GROWTH 5 DAYS Normal [facility] CBC AND AUTO DIFFon 02-07-20 ABSOLUTE BASOPHIL 0.0 X10E9/L Normal 0.0-0.2 [facility] Comment on above: Performed By: #### 2 823-3 #### [facility] ([id number]) [address], [address] [place] [address] ABSOLUTE NEUTROPHIL 3.0 X10E9/L Normal 1.5-6.6 [facility] Comment on above: Performed By: #### 2 823-3 #### [facility] ([id number]) [address], [address] [place] [address] Basophils/100 WBC (Bld) 0.4 % Normal [facility] Comment on above: Performed By: #### 2 823-3 #### [facility] ([id number]) [address], [address] [place] [address] Eosinophils (Bld) [#/Vol] 0.1 10*3/uL Normal 0.0-0.4 [facility] Comment on above: Performed By: #### 2 823-3 #### [facility] ([id number]) [address], [address] [place] [address] Eosinophils/100 WBC (Bld) 1.4 % Normal [facility] Comment on above: Performed By: #### 2 823-3 #### [facility] ([id number]) [address], [address] [place] [address] Erythrocyte distribution width (RBC) [Ratio] 16.3 % High 11.5-15.0 [facility] Comment on above: Performed By: #### 2 823-3 #### [facility] ([id number]) [address] [place] [address] Hematocrit (Bld) [Volume fraction] 32.5 % Low 35-47 [facility] Comment on above: Performed By: #### 2 823-3 #### [facility] [facility] ([id number]) [address], [address] [place] [address] Hemoglobin (Bld) [Mass/Vol] 10.8 g/dL Low 11.7-15.5 [facility] Comment on above: Performed By: #### 2 823-3 #### [facility] ([id number]) [address], [address] [place] [address] Lymphocytes (Bld) [#/Vol] 2.2 10*3/uL Normal 1.0-3.5 [facility] Comment on above: Performed By: #### 2 823-3 #### [facility] ([id number]) [address], [address] [place] [address] Lymphocytes/100 WBC (Bld) 39.2 % Normal [facility] Comment on above: Performed By: #### 2 823-3 #### [facility] ([id number]) [address], [address] [place] [address] MCH (RBC) [Entitic mass] 28.2 pg Normal 27-34 [facility] Comment on above: Performed By: #### 2 823-3 #### [facility] ([id number]) [address], [address] [place] [address] MCHC (RBC) [Mass/Vol] 33.4 g/dL Normal 32-36 [facility] Comment on above: Performed By: #### 2 823-3 #### [facility] ([id number]) [address], [address] [place] [address] MCV (RBC) [Entitic vol] 85 fL Normal 80-100 [facility] Comment on above: Performed By: #### 2 823-3 #### [facility] ([id number]) [address], [address] [place] [address] Monocytes (Bld) [#/Vol] 0.4 10*3/uL Normal 0-0.9 [facility] Comment on above: Performed By: #### 2 823-3 #### [facility] ([id number]) [address], [address] [place] [address] Monocytes/100 WBC (Bld) 7.0 % Normal [facility] Comment on above: Performed By: #### 2 823-3 #### [facility] ([id number]) [address], [address] [place] [address] Neutrophils/100 WBC (Bld) 52.0 % Normal [facility] Comment on above: Performed By: #### 2 823-3 #### [facility] ([id number]) [address], [address] [place] [address] Platelet mean volume (Bld) [Entitic vol] 8.0 fL Normal 7-12 [facility] Comment on above: Performed By: #### 2 823-3 #### [facility] ([id number]) [address], [address] [place] [address] Platelets (Bld) [#/Vol] 224 10*3/uL Normal 150-450 [facility] Comment on above: Performed By: #### 2 823-3 #### [facility] ([id number]) [address], [address] [place] [address] RBC COUNT 3.84 X10E12/L Normal 3.80-5.20 [facility] Comment on above: Performed By: #### 2 823-3 #### [facility] ([id number]) [address] [facility], [address] [place] [address] WBC (Bld) [#/Vol] 5.7 10*3/uL Normal 4.0-11.0 [facility] Comment on above: Performed By: #### 2 823-3 #### [facility] ([id number]) [address] [place] [address] CBC with Auto Differentialon 02-07-2024 Basophils (Bld) [#/Vol] [facility] Basophils/100 WBC (Bld) 1 % 0 - 2 % [facility] Eosinophils (Bld) [#/Vol] 0.12 10*3/uL [facility] Eosinophils/100 WBC (Bld) 3 % 1 - 4 % [facility] Erythrocyte distribution width (RBC) [Ratio] 15.0 % High 11.8 - 14.4 % [facility] Hematocrit (Bld) [Volume fraction] 35.2 % Low 36.3 - 47.1 % [facility] Hemoglobin (Bld) [Mass/Vol] 11.4 g/dL Low 11.9 - 15.1 g/dL [facility] Immature granulocytes (Bld) [#/Vol] [facility] Immature granulocytes/100 WBC (Bld) 0 % 0 [facility] Interpretation and review of laboratory results Abnormal [facility] Lymphocytes/100 WBC (Bld) 38 % 24 - 43 % [facility] Lymphocytes/100 WBC (Bld) 1.69 % [facility] MCH (RBC) [Entitic mass] 28.2 pg 25.2 - 33.5 pg [facility] MCHC (RBC) [Mass/Vol] 32.4 g/dL 28.4 - 34.8 g/dL [facility] MCV (RBC) [Entitic vol] 87.1 fL 82.6 - 102.9 fL [facility] Monocytes/100 WBC (Bld) 8 % 3 - 12 % [facility] Monocytes/100 WBC (Bld) 0.36 % [facility] Neutrophils/100 WBC (Bld) 50 % 36 - 65 % [facility] Nucleated RBC/100 WBC (Bld) [Ratio] 0.0 % 0.0 per 100 WBC [facility] Platelet mean volume (Bld) [Entitic vol] 10.3 fL 8.1 - 13.5 fL [facility] Platelets (Bld) [#/Vol] 228 10*3/uL [facility] RBC (Bld) [#/Vol] 4.04 10*6/uL 3.95 - 5.1 1 m/uL [facility] Segmented neutrophils/100 WBC (Bld) 2.23 % [facility] WBC other (Bld) [#/Vol] 4.4 [facility] CBC with Diffon 02-07-2024 Abs. Basophil <0.03 Normal 0.00-0.20 [facility] Comment on above: Performed By: #### C P, LIP, CDP #### [facility] [address] [place] [address] Dr[address] [place] [id number] Wheel Loader Operator: Lakhwinder Tim MD Abs.Imm.Granulocyte <0.03 Normal 0.00-0.30 [facility] Comment on above: Performed By: #### C P, LIP, CDP #### [address] [place] [phone] Wheel Loader Operator: Lakhwinder Tim MD Abs.Neutrophil (Seg) 2.23 k/uL Normal 1.50-8.10 [facility] Comment on above: Performed By: #### C P, LIP, CDP #### [address] [place] [phone] Wheel Loader Operator: Lakhwinder Tim MD Basophils/100 WBC (Bld) 1 % Normal 0-2 [facility] Comment on above: Performed By: #### C P, LIP, CDP #### [address] [place], [place] [address] Wheel Loader Operator: Lakhwinder Tim MD Eosinophils (Bld) [#/Vol] 0.12 10*3/uL Normal 0.00-0.44 [facility] Comment on above: Performed By: #### C P, LIP, CDP #### [facility] [address] [place] [address] Wheel Loader Operator: Lakhwinder Tim MD Eosinophils/100 WBC (Bld) 3 % Normal 1-4 [facility] Comment on above: Performed By: #### C P, LIP, CDP #### [address] [place] [address] Wheel Loader Operator: Lakhwinder Tim MD Erythrocyte distribution width (RBC) [Ratio] 15.0 % High 11.8-14.4 [facility] Comment on above: Performed By: #### C P, LIP, CDP #### [address] [place] [address] Wheel Loader Operator: Lakhwinder Tim MD Hematocrit (Bld) [Volume fraction] 35.2 % Low 36.3-47.1 [facility] Comment on above: Performed By: #### C P, LIP, CDP #### [address] [place] [address] Wheel Loader Operator: Lakhwinder Tim MD Hemoglobin (Bld) [Mass/Vol] 11.4 g/dL Low 11.9-15.1 [facility] Comment on above: Performed By: #### C P, LIP, CDP #### [address] [place] [phone] Wheel Loader Operator: Lakhwinder Tim MD Immature granulocytes/100 WBC (Bld) 0 % Normal 0 [facility] Comment on above: Performed By: #### C P, LIP, CDP #### [address] [place] [phone] Wheel Loader Operator: Lakhwinder Tim MD Lymphocytes (Bld) [#/Vol] 1.69 10*3/uL Normal 1.10-3.70 [facility] Comment on above: Performed By: #### C P, LIP, CDP #### [facility] [address] [place], [place] [phone] Wheel Loader Operator: Lakhwinder Tim MD Lymphocytes/100 WBC (Bld) 38 % Normal 24-43 [facility] Comment on above: Performed By: #### C P, LIP, CDP #### [facility] [address] [place] [address] Wheel Loader Operator: Lakhwinder Tim MD MCH (RBC) [Entitic mass] 28.2 pg Normal 25.2-33.5 [facility] Comment on above: Performed By: #### C P, LIP, CDP #### [address] [place], [place] [phone] Wheel Loader Operator: Lakhwinder Tim MD MCHC (RBC) [Mass/Vol] 32.4 g/dL Normal 28.4-34.8 [facility] Comment on above: Performed By: #### C P, LIP, CDP #### [address] [place], [place] [phone] Wheel Loader Operator: Lakhwinder Tim MD MCV (RBC) [Entitic vol] 87.1 fL Normal 82.6-102.9 [facility] Comment on above: Performed By: #### C P, LIP, CDP #### [address] [place] [address] Wheel Loader Operator: Lakhwinder Tim MD Monocytes (Bld) [#/Vol] 0.36 10*3/uL Normal 0.10-1.20 [facility] Comment on above: Performed By: #### C P, LIP, CDP #### [address] [place], [place] [phone] Wheel Loader Operator: Lakhwinder Tim MD Monocytes/100 WBC (Bld) 8 % Normal 3-12 [facility] Comment on above: Performed By: #### C P, LIP, CDP #### [facility] [address] [place], [place] 9676083 Wheel Loader Operator: Lakhwinder Tim MD Neutrophil (Seg) 50 % Normal 36-65 [facility] Comment on above: Performed By: #### C P, LIP, CDP #### [facility] [address] [place], [place] [phone] Wheel Loader Operator: Lakhwinder Tim MD NRBC Automated 0.0 per [address] [facility] Comment on above: Performed By: #### C P, LIP, CDP #### [facility] [address] [place], [place] [phone] Wheel Loader Operator: Lakhwinder Tim MD Platelet mean volume (Bld) [Entitic vol] 10.3 fL Normal 8.1-13.5 [facility] Comment on above: Performed By: #### C P, LIP, CDP #### [address] [place], [place] [phone] Wheel Loader Operator: Lakhwinder Tim MD Platelets (Bld) [#/Vol] 228 10*3/uL Normal 138-453 [facility] Comment on above: Performed By: #### C P, LIP, CDP #### [facility] [address] [place] [address] Wheel Loader Operator: Lakhwinder Tim MD RBC (Bld) [#/Vol] 4.04 10*6/uL Normal 3.95-5.11 [facility] Comment on above: Performed By: #### C P, LIP, CDP #### [facility] [address] [place], [place] [phone] Wheel Loader Operator: Lakhwinder Tim MD WBC (Bld) [#/Vol] 4.4 10*3/uL Normal 3.5-11.3 [facility] Comment on above: Performed By: #### C P, LIP, CDP #### [facility] [address] [place] [address] Wheel Loader Operator: Lakhwinder Tim MD COMPREHENSIVE METABOLIC PANE [facility] 02-07-2024 Albumin [Mass/Vol] 3.7 g/dL Normal 3.2-5.3 [facility] Comment on above: Performed By: #### 2 823-3 #### [facility] ([id number]) [address], [address] [place] [address] ALP [Catalytic activity/Vol] 45 U/L Normal 39-130 [facility] Comment on above: Performed By: #### 2 823-3 #### [facility] ([id number]) [address], [address] [place] [address] ALT [Catalytic activity/Vol] 7 U/L Normal 0-31 [facility] Comment on above: Performed By: #### 2 823-3 #### [facility] ([id number]) [address], [address] [place] [address] Anion gap [Moles/Vol] 10 mmol/L Normal 5-15 [facility] Comment on above: Performed By: #### 2 823-3 #### [facility] ([id number]) [address], [address] [place] [address] AST [Catalytic activity/Vol] 12 U/L Normal 0-41 [facility] Comment on above: Performed By: #### 2 823-3 #### [facility] ([id number]) [address], [address] [place] [address] Bilirubin [Mass/Vol] 0.3 mg/dL Normal 0.3-1.2 [facility] Comment on above: Performed By: #### 2 823-3 #### [facility] ([id number]) [address], [address] [place] [address] Calcium [Mass/Vol] 9.1 mg/dL Normal 8.5-10.5 [facility] Comment on above: Performed By: #### 2 823-3 #### [facility] ([id number]) [address], [address] [place] [address] Chloride [Moles/Vol] 107 mmol/L Normal 98-109 [facility] Comment on above: Performed By: #### 2 823-3 #### [facility] ([id number]) [address] [place] [address] CO2 [Moles/Vol] 25 mmol/L Normal 22-32 [facility] Comment on above: Performed By: #### 2 823-3 #### [facility] ([id number]) [address] [place] [address] Creatinine [Mass/Vol] 0.54 mg/dL Normal 0.40-1.00 [facility] Comment on above: Result Comment: METH OD TRACEABLE TO IDMS STANDARD Performed By: #### 2 823-3 #### [facility] ([id number]) [address], [address] [place] [address] eGFR (CKD-EPI) NON-RACE DEPENDENT >90 Normal >59 [facility] Comment on above: Result Comment: Reported eGFR is based on the CKD-EPI 1 equation that does not use a race coefficient. Performed By: #### 2 823-3 #### [facility] ([id number]) [address], [address] [place] [address] Glucose [Mass/Vol] 96 mg/dL Normal 65-99 [facility] Comment on above: Performed By: #### 2 823-3 #### [facility] ([id number]) [address], [address] [place] [address] Potassium [Moles/Vol] 3.5 mmol/L Normal 3.5-5.0 [facility] Comment on above: Performed By: #### 2 823-3 #### [facility] ([id number]) [address], [address] [place] [address] Protein [Mass/Vol] 7.3 g/dL Normal 6.0-8.0 [facility] Comment on above: Performed By: #### 2 823-3 #### [facility] ([id number]) [address], [address] [place] [address] Sodium [Moles/Vol] 142 mmol/L Normal 134-146 [facility] Comment on above: Performed By: #### 2 823-3 #### [facility] ([id number]) [address], [address] [place] [address] Urea nitrogen [Mass/Vol] 3 mg/dL Low 5-23 [facility] Comment on above: Performed By: #### 2 823-3 #### [facility] ([id number]) [address], [address] [place] [address] CT ABDOMEN PELVIS W IV CONTR Marichuy [...] Carlos Alejo MD 02/07/[address] [facility] CT Abdomen and Pelvis W cont rast Alexsander 02-07-2024 No acute abdominopel davi abnormality. [facility] EXAMINATION: CT OF THE ABDOMEN AND [...] no acute fracture or aggressive osseous lesion. [facility] Carlos Alejo MD - 02/07/2024 EXAMINATION: [...] osseous lesion. IMPRESSION: No acute abdominopelvic abnormality. [facility] Radiology Study observation (narrative) [facility] CT Abdomen and Pelvis W cont rast IVOrdered By: Carlos Alejo on 02-07-2024 [facility] Work Phone: Comp Metabolic Profon 2023 Albumin [Mass/Vol] 4.2 g/dL Normal 3.5-5.2 [facility] Comment on above: Performed By: #### C TOM Mckeon, CDP #### [facility] [address] [place] [address] [place] [address] Wheel Loader Operator: Lakhwinder Tim MD Albumin/Glob Ratio 1.2 Normal 1.0-2.5 [facility] Comment on above: Performed By: #### TOM Donahue, CDP #### [facility] [address] [place] [address] Wheel Loader Operator: Lakhwinder Tim MD Alkaline Phos 56 U/L Normal 35-104 [facility] Comment on above: Performed By: #### TOM Donahue, CDP #### [facility] [address] [place] [address] Wheel Loader Operator: Lakhwinder Tim MD ALT [Catalytic activity/Vol] 7 U/L Normal 5-33 [facility] Comment on above: Performed By: #### C P, LIP, CDP #### [facility] [address] [place], [place] 6400183 Wheel Loader Operator: Lakhwinder Tim MD Anion gap [Moles/Vol] 11 mmol/L Normal 9-17 [facility] Comment on above: Performed By: #### C P, LIP, CDP #### [facility] [address] [place], [place] 1101783 Wheel Loader Operator: Lakhwinder Tim MD AST [Catalytic activity/Vol] 13 U/L Normal <32 [facility] Comment on above: Performed By: #### C P, LIP, CDP #### [facility] [address] [place], [place] 2583183 Wheel Loader Operator: Lakhwinder Tim MD Bilirubin [Mass/Vol] 0.2 mg/dL Low 0.3-1.2 [facility] Comment on above: Performed By: #### C P, LIP, CDP #### [facility] [address] [place] [address] Dr. [place], [place] [phone] Wheel Loader Operator: Lakhwinder Tim MD BUN/CRE Ratio 8 Low 9-20 [facility] Comment on above: Performed By: #### C P, LIP, CDP #### [facility] [address] [place] [address] Dr. [place], [place] 5369983 Wheel Loader Operator: Lakhwinder Tim MD Calcium [Mass/Vol] 9.1 mg/dL Normal 8.6-10.4 [facility] Comment on above: Performed By: #### C P, LIP, CDP #### [facility] [address] [place], [place] 18[address]83 Wheel Loader Operator: Lakhwinder Tim MD Chloride [Moles/Vol] 102 mmol/L Normal 98-107 [facility] Comment on above: Performed By: #### C P, LIP, CDP #### [facility] [address] [place] [address] [place] [address] Wheel Loader Operator: Lakhwinder Tim MD CO2 [Moles/Vol] 26 mmol/L Normal 20-31 [facility] Comment on above: Performed By: #### C P, LIP, CDP #### [facility] [address] [place] [address] Wheel Loader Operator: Lakhwinder Tim MD Creatinine [Mass/Vol] 0.5 mg/dL Normal 0.5-0.9 [facility] Comment on above: Performed By: #### C P, LIP, CDP #### [facility] [address] [place] [address] Wheel Loader Operator: Lakhwinder Tim MD GFR/1.73 sq M.predicted among non-blacks MDRD (S/P/Bld) [Vol rate/Area] mL/min/{1.73_m2} Normal >60 [facility] Comment on above: Result Comment: These [...] By: #### C P, LIP, CDP #### [facility] [address] [place] [address] Wheel Loader Operator: Lakhwinder Tim MD Glucose [Mass/Vol] 83 mg/dL Normal 70-99 [facility] Comment on above: Performed By: #### C P, LIP, CDP #### [facility] [address] [place] [address] Wheel Loader Operator: Lakhwinder Tim MD Potassium [Moles/Vol] 4.1 mmol/L Normal 3.7-5.3 [facility] Comment on above: Performed By: #### C P, LIP, CDP #### [facility] [address] [place] [address] Wheel Loader Operator: Lakhwinder Tim MD Protein [Mass/Vol] 7.7 g/dL Normal 6.4-8.3 [facility] Comment on above: Performed By: #### C P, LIP, CDP #### [facility] [address] [place] [address] Wheel Loader Operator: Lakhwinder Tim MD Sodium [Moles/Vol] 139 mmol/L Normal 135-144 [facility] Comment on above: Performed By: #### C P, LIP, CDP #### [facility] [address] [place] [address] Wheel Loader Operator: Lakhwinder Tim MD Urea nitrogen [Mass/Vol] 4 mg/dL Low 6-20 [facility] Comment on above: Performed By: #### C P, LIP, CDP #### [facility] [address] [place] [address] Wheel Loader Operator: Lakhwinder Tim MD Comprehensive Metabolic Pane [facility] 02-07-2024 Albumin [Mass/Vol] 4.2 g/dL 3.5 - 5.2 g/dL [facility] Albumin/Globulin [Mass ratio] 1.2 {ratio} 1.0 - 2.5 [facility] ALP [Catalytic activity/Vol] 56 U/L 35 - 104 U/L [facility] ALT [Catalytic activity/Vol] 7 U/L 5 - 33 U/L [facility] Anion gap [Moles/Vol] 11 mmol/L 9 - 17 mmol/L [facility] AST [Catalytic activity/Vol] 13 U/L NINF - 32 U/L [facility] Bilirubin [Mass/Vol] 0.2 mg/dL Low 0.3 - 1 .2 mg/dL [facility] Calcium [Mass/Vol] 9.1 mg/dL 8.6 - 10. 4 mg/dL [facility] Chloride [Moles/Vol] 102 mmol/L 98 - 10 7 mmol/L [facility] CO2 [Moles/Vol] 26 mmol/L 20 - 31 mmol/L [facility] Creatinine [Mass/Vol] 0.5 mg/dL 0.5 - 0.9 mg/dL [facility] Est, Love Van Rate - PINF [facility] Comment on above: These results [...] [Mass/Vol] 83 mg/dL 70 - 99 mg/dL [facility] Interpretation and review of laboratory results Abnormal [facility] Potassium [Moles/Vol] 4.1 mmol/L 3.7 - 5.3 mmol/L [facility] Protein [Mass/Vol] 7.7 g/dL 6.4 - 8.3 g/dL [facility] Sodium [Moles/Vol] 139 mmol/L 135 - 144 mmol/L [facility] Urea nitrogen [Mass/Vol] 4 mg/dL Low 6 - 20 mg/dL [facility] Urea nitrogen/Creatinine [Mass ratio] 8 mg/mg Low 9 - 20 [facility] LIPASEon 02-07-2024 Lipase [Catalytic activity/Vol] 11 U/L Normal 11-82 [facility] Comment on above: Performed By: #### C BCA, 87034-3, PINR, [id number], CMP #### [facility] ([id number]) [address] [place] [address], [address] [place] [address] Lactic Acidon 02-07-2024 Lactate (BldV) [Moles/Vol] 0.6 mmol/L 0.5 - 2.2 mmol/L [facility] Lactate [Moles/Vol] 0.6 mmol/L Normal 0.5-2.2 [facility] Comment on above: Performed By: #### C P, LIP, CDP #### [facility] [address] [place] [address] Wheel Loader Operator: Lakhwinder Tim MD Lipaseon 02-07-2024 Lipase [Catalytic activity/Vol] 19 U/L 13 - 60 U/L [facility] Lipase [Catalytic activity/Vol] 19 U/L Normal -60 [facility] Comment on above: Performed By: #### C P, LIP, CDP #### [facility] [address] [place] [address] Wheel Loader Operator: Lakhwinder Tim MD Microscopic Urinalysison Epithelial cells LM.HPF (Urine sed) [#/Area] 0 TO 2 [facility] RBC LM.HPF (Urine sed) [#/Area] 0 TO 2 [facility] WBC LM.HPF (Urine sed) [#/Area] 0 TO 2 [facility] No Panel Informationon 02-06 [facility] Troponin I.cardiac High sens itivity method [Mass/Vol]on 02-07-2024 1 HOUR TROP I, HIGH SENSITIVITY <2 Normal <16 [facility] Comment on above: Performed By: #### C BCA, 59515-5, PINR, [id number], CMP #### [facility] ([id number]) [address] [place] [address] TROPONIN I, HIGH SENSITIVITY <2 Normal <16 [facility] Comment on above: Performed By: #### C BCA, 05085-6, PINR, [id number], CMP #### [facility] ([id number]) [address] [place] [address] UA w/Reflex Cultureon 2023 Bilirubin, SemiQt,Ur Negative Normal NEG [facility] Comment on above: Performed By: #### U MICAO, UAX #### [facility] [address] [place] [address] Wheel Loader Operator: Lakhwinder Tim MD Blood, Urine Negative Normal NEG [facility] Comment on above: Performed By: #### U MICAO, UAX #### [facility] [address] [place] [address] Dr. [place], [place] [id number] Wheel Loader Operator: Lakhwinder Tim MD Clarity (U) Clear Normal CLEAR [facility] Comment on above: Performed By: #### U MICAO, UAX #### [facility] [address] [place] [address] [place], [place] [phone] Wheel Loader Operator: Lakhwinder Tim MD Color (U) Yellow Normal YEL [facility] Comment on above: Performed By: #### U MICAO, UAX #### [facility] [address] [place] [address] Dr. [place], [place] [phone] Wheel Loader Operator: Lakhwinder Tim MD Glucose Ql (U) Negative Normal NEG [facility] Comment on above: Performed By: #### U MICAO, UAX #### [facility] [address] [place] [address] Dr. [place], [place] [id number] Wheel Loader Operator: Lakhwinder Tim MD Ketones Ql (U) Negative Normal NEG [facility] Comment on above: Performed By: #### U MICAO, UAX #### [facility] [address] [place] [address] [place] [address] Wheel Loader Operator: Lakhwinder Tim MD Leukocyte esterase Test strip Ql (U) Negative Normal NEG [facility] Comment on above: Performed By: #### U MICAO, UAX #### [facility] [address] [place] [address] Dr. [place], [place] [id number] Wheel Loader Operator: Lakhwinder Tim MD Nitrite,Ur Negative Normal NEG [facility] Comment on above: Performed By: #### U MICAO, UAX #### [facility] [address] [place] [address] [place]. [place], [place] 3249983 Wheel Loader Operator: Lakhwinder Tim MD PH,Ur 7.5 Normal 5.0-9.0 [facility] Comment on above: Performed By: #### U KARINA, UAX #### [facility] [address] [place], [place] 6443183 Wheel Loader Operator: Lakhwinder Tim MD Protein Ql (U) Negative Normal NEG [facility] Comment on above: Performed By: #### U OSMINO, UAX #### [facility] [address] [place], [place] 0711083 Wheel Loader Operator: Lakhwinder Tim MD Spec. Fork,Ur 1.010 Normal 1.010-1.020 [facility] Comment on above: Performed By: #### U KARINA UAX #### [address] [place], [place] 7011983 Wheel Loader Operator: Lakhwinder Tim MD Urobilinogen,Ur Normal Normal 0.0-1.0 [facility] Comment on above: Performed By: #### U KARINA, UAX #### [facility] [address] [place], [place] 6409783 Wheel Loader Operator: Lakhwinder Tim MD URN MACROSCOPIC NURon 2023 BILIRUBIN L[place]SEY Negative Normal [facility] Comment on above: Performed By: #### C BCA, 20155-1, PINR, [id number], CMP #### [facility] ([id number]) [address] [place] [address] BLOOD/HGB LYNSEY Trace Abnormal NEG [facility] Comment on above: Performed By: #### C BCA, 04271-5, PINR, [id number], CMP #### [facility] ([id number]) [address] [place] [address] GLUCOSE [place]Y Negative Normal [facility] Comment on above: Performed By: #### C BCA, 96428-8, PINR, [id number], CMP #### [facility] ([id number]) [address], [address] [place] [address] KETONES LYNSEY Negative Normal NEG [facility] Comment on above: Performed By: #### C BCA, 54512-7, PINR, [id number], CMP #### [facility] ([id number]) [address], [address] [place] [address] LEUKOCYTE ESTERASE LYNSEY Negative Normal NEG [facility] Comment on above: Performed By: #### C BCA, 64582-6, PINR, [id number], CMP #### [facility] ([id number]) [address] [place] [address] NITRITE L[place]SEY Negative Normal NEG [facility] Comment on above: Performed By: #### C BCA, 73383-6, PINR, [id number], CMP #### [facility] ([id number]) [address] [place] [address] PH LYNSEY 7.0 Normal 5.0-8.5 [facility] Comment on above: Performed By: #### C BCA, 31583-7, PINR, [id number], CMP #### [facility] ([id number]) [address] [place] [address] PROTEIN L[place]SEY Negative Normal NEG [facility] Comment on above: Performed By: #### C BCA, 63078-9, PINR, [id number], CMP #### [facility] ([id number]) [address] [place] [address] SPECIFIC GRAVITY LYNSEY 1.020 Normal 1.003-1.035 [facility] Comment on above: Performed By: #### C BCA, 45431-6, PINR, [id number], CMP #### [facility] ([id number]) [address] [place] [address] UROBILINOGEN LYNSEY 0.2 eu/dL Normal <1.1 [facility] Comment on above: Performed By: #### C BCA, 43179-6, PINR, [id number], [facility] #### [facility] ([id number]) [address] [place] [address] US PELVIC WITH TRANSVAGINAL AND DUPLEXon 02-07-2024 [...] Cifuentes MD on 02/07/2024 10:56 PM Normal [facility] Urinalysis with Reflex to Cu ltureon 02-07-2024 Bilirubin Ql (U) Negative NEGATIVE [facility] Clarity (U) Clear Clear [facility] Color (U) Yellow Yellow [facility] Glucose Test strip (U) [Mass/Vol] Negative NEGATIVE mg/dL [facility] Hemoglobin Auto test strip Ql (U) Negative NEGATIVE [facility] Ketones (U) [Mass/Vol] Negative NEGATIVE mg/dL [facility] Leukocyte esterase Test strip Ql (U) Negative NEGATIVE [facility] Nitrite Ql (U) Negative NEGATIVE [facility] pH (U) 7.5 [pH] 5.0 - 9.0 [facility] Protein (U) [Mass/Vol] Negative NEGATIVE mg/dL [facility] Specific gravity (U) [Rel density] 1.010 1.010 - 1.020 [facility] Urobilinogen Qn (U) Normal 0.0 - 1. 0 EU/dL [facility] Urinalysis,Microon 4 Epithelial cells LM Ql (Urine sed) 0 TO 2 Normal 0-25 [facility] Comment on above: Performed By: #### U KARINA UAX #### [facility] [address] [place] [address] Wheel Loader Operator: Lakhwinder Tim MD Urine RBC's 0 TO 2 Normal 0-2 [facility] Comment on above: Performed By: #### U KARINA UAX #### [facility] [address] [place] [address] Wheel Loader Operator: Lakhwinder Tim MD Urine WBC's 0 TO 2 Normal 0-5 [facility] Comment on above: Performed By: #### U KARINA UAX #### [facility] [address] [place] [address] Wheel Loader Operator: Lakhwinder Tim MD Urine collection deviceon ER EXTRA URINES ER EXTRA URINE ORDER IN PROCESS Normal [facility] Vaginitis DNA Probeon 2023 Anca Negative Normal [facility] Comment on above: Result Comment: for Anca sp. Method of testing is a DNA probe intended for detection and identification of Anca species, Gardnerella vaginalis, and Trichomonas vaginalis nucleic acid in vaginal fluid specimens from patients with symptoms of vaginitis/vaginosis. Performed By: #### U MICAO, UAX #### [facility] [address] [place] [address] [place] [address] Wheel Loader Operator: Lakhwinder Tim MD Gardnerella Negative [facility] Comment on above: Result Comment: for Gardnerella vaginalis Performed By: #### U MICAO, UAX #### [address] [place] [address] Wheel Loader Operator: Lakhwinder Tim MD Trichomonas Negative [facility] Comment on above: Result Comment: for Trichomonas Vaginalis Performed By: #### U MICAO, UAX #### [address] [place] [address] Wheel Loader Operator: Lakhwinder Tim MD Cult,Bloodon 02-06-2024 Cult,Blood [...] to and read back by:ROLAND AGUILLON 02/04/2024 @1651 by tech [id number] Report Status FINAL 02/06/2024 [facility] Comment on above: Performed By: #### B C #### [facility] [address] [place], [place] 3147208 Wheel Loader Operator: Sacha Lai MD [address] [place] [address] Wheel Loader Operator: Lakhwinder Tim MD Vaginitis DNA Probeon 2023 Source .VAGINAL SWAB Normal [facility] Comment on above: Performed By: #### U KARINA, UAX #### [facility] [address] [place], [place] 2338083 Wheel Loader Operator: Lakhwinder Tim MD Basic Metabolic Profon 02-04 Anion gap [Moles/Vol] 10 mmol/L Normal - [facility] Comment on above: Performed By: #### C P, LIP, CDP #### [facility] [address] [place], [place] 6975183 Wheel Loader Operator: Lakhwinder Tim MD BUN/CRE Ratio 10 Normal - [facility] Comment on above: Performed By: #### C P, LIP, CDP #### [facility] [address] [place], [place] 9839683 Wheel Loader Operator: Lakhwinder Tim MD Calcium [Mass/Vol] 9.1 mg/dL Normal 8.6-10.4 [facility] Comment on above: Performed By: #### C P, LIP, CDP #### [facility] [address] [place], [place] 3242583 Wheel Loader Operator: Lakhwinder Tim MD Chloride [Moles/Vol] 102 mmol/L Normal 98-107 [facility] Comment on above: Performed By: #### C P, LIP, CDP #### [facility] [address] [place], [place] 4910783 Wheel Loader Operator: Lakhwinder Tim MD CO2 [Moles/Vol] 27 mmol/L Normal 20-31 [facility] Comment on above: Performed By: #### C P, LIP, CDP #### [facility] [address] [place] [address] Wheel Loader Operator: Lakhwinder Tim MD Creatinine [Mass/Vol] 0.7 mg/dL Normal 0.5-0.9 [facility] Comment on above: Performed By: #### C P, LIP, CDP #### [facility] [address] [place] [address] Wheel Loader Operator: Lakhwinder Tim MD GFR/1.73 sq M.predicted among non-blacks MDRD (S/P/Bld) [Vol rate/Area] mL/min/{1.73_m2} Normal >60 [facility] Comment on above: Result Comment: These [...] By: #### C P LIP, CDP #### [facility] [address] [place], [place] 7186483 Wheel Loader Operator: Lakhwinder Tim MD Glucose [Mass/Vol] 93 mg/dL Normal 70-99 [facility] Comment on above: Performed By: #### C PTOM, CDP #### [facility] [address] [place], [place] 9467383 Wheel Loader Operator: Lakhwinder Tim MD Potassium [Moles/Vol] 3.7 mmol/L Normal 3.7-5.3 [facility] Comment on above: Performed By: #### C P LIP, CDP #### [facility] [address] [place], [place] 0426783 Wheel Loader Operator: Lakhwinder Tim MD Sodium [Moles/Vol] 139 mmol/L Normal 135-144 [facility] Comment on above: Performed By: #### C P, LIP, CDP #### [facility] [address] [place], [place] 9415583 Wheel Loader Operator: Lakhwinder Tim MD Urea nitrogen [Mass/Vol] 7 mg/dL Normal 6-20 [facility] Comment on above: Performed By: #### C P, LIP, CDP #### [facility] [address] [place] [address] Dr. [place], [place] [address] Wheel Loader Operator: Lakhwinder Tim MD CBC with Diffon 02-05-2024 Abs. Basophil <0.03 Normal 0.00-0.20 [facility] Comment on above: Performed By: #### C P, LIP, CDP #### [address] [place], [place] [address] Wheel Loader Operator: Lakhwinder Tim MD Abs.Imm.Granulocyte <0.03 Normal 0.00-0.30 [facility] Comment on above: Performed By: #### C P, LIP, CDP #### [address] [place] [address] Wheel Loader Operator: Lakhwinder Tim MD Abs.Neutrophil (Seg) 3.35 k/uL Normal 1.50-8.10 [facility] Comment on above: Performed By: #### C P, LIP, CDP #### [address] [place] [address] Wheel Loader Operator: Lakhwinder Tim MD Basophils/100 WBC (Bld) 0 % Normal 0-2 [facility] Comment on above: Performed By: #### C P, LIP, CDP #### [address] [place], [place] [address] Wheel Loader Operator: Lakhwinder Tim MD Eosinophils (Bld) [#/Vol] 0.10 10*3/uL Normal 0.00-0.44 [facility] Comment on above: Performed By: #### C P, LIP, CDP #### [address] [place], [place] 6073083 Wheel Loader Operator: Lakhwinder Tim MD Eosinophils/100 WBC (Bld) 2 % Normal 1-4 [facility] Comment on above: Performed By: #### C P, LIP, CDP #### [facility] [address] [place], [place] 0662883 Wheel Loader Operator: Lakhwinder Tim MD Erythrocyte distribution width (RBC) [Ratio] 15.0 % High 11.8-14.4 [facility] Comment on above: Performed By: #### C P, LIP, CDP #### [facility] [address] [place], [facility]83 Wheel Loader Operator: Lakhwinder Tim MD Hematocrit (Bld) [Volume fraction] 33.6 % Low 36.3-47.1 [facility] Comment on above: Performed By: #### C P, LIP, CDP #### [address] [place] [address]483 Wheel Loader Operator: Lakhwinder Tim MD Hemoglobin (Bld) [Mass/Vol] 11.0 g/dL Low 11.9-15.1 [facility] Comment on above: Performed By: #### C P, LIP, CDP #### [address] [place], [facility]83 Wheel Loader Operator: Lakhwinder Tim MD Immature granulocytes/100 WBC (Bld) 0 % Normal 0 [facility] Comment on above: Performed By: #### C P, LIP, CDP #### [address] [place], [facility]83 Wheel Loader Operator: Lakhwinder Tim MD Lymphocytes (Bld) [#/Vol] 2.20 10*3/uL Normal 1.10-3.70 [facility] Comment on above: Performed By: #### C P, LIP, CDP #### [address] [place] [address] Wheel Loader Operator: Lakhwinder Tim MD Lymphocytes/100 WBC (Bld) 35 % Normal 24-43 [facility] Comment on above: Performed By: #### C P, LIP, CDP #### [address] [place], [facility]83 Wheel Loader Operator: Lakhwinder Tim MD MCH (RBC) [Entitic mass] 28.2 pg Normal 25.2-33.5 [facility] Comment on above: Performed By: #### C P, LIP, CDP #### [address] [place] [facility]83 Wheel Loader Operator: Lakhwinder Tim MD MCHC (RBC) [Mass/Vol] 32.7 g/dL Normal 28.4-34.8 [facility] Comment on above: Performed By: #### C P, LIP, CDP #### [address] [place], [facility]83 Wheel Loader Operator: Lakhwinder Tim MD MCV (RBC) [Entitic vol] 86.2 fL Normal 82.6-102.9 [facility] Comment on above: Performed By: #### C P, LIP, CDP #### [address] [place], [facility]83 Wheel Loader Operator: Lakhwinder Tim MD Monocytes (Bld) [#/Vol] 0.59 10*3/uL Normal 0.10-1.20 [facility] Comment on above: Performed By: #### C P, LIP, CDP #### [address] [place], [facility]83 Wheel Loader Operator: Lakhwinder Tim MD Monocytes/100 WBC (Bld) 9 % Normal 3-12 [facility] Comment on above: Performed By: #### C P, LIP, CDP #### [address] [place], [facility]83 Wheel Loader Operator: Lakhwinder Tim MD Neutrophil (Seg) 54 % Normal 36-65 [facility] Comment on above: Performed By: #### C P, LIP, CDP #### [address] [place], [facility]83 Wheel Loader Operator: Lakhwinder Tim MD NRBC Automated 0.0 per [address] [facility] Comment on above: Performed By: #### C P, LIP, CDP #### [facility] [address] [place], [place] 5868783 Wheel Loader Operator: Lakhwinder Tim MD Platelet mean volume (Bld) [Entitic vol] 10.0 fL Normal 8.1-13.5 [facility] Comment on above: Performed By: #### C P, LIP, CDP #### [facility] [address] [place] [address] Wheel Loader Operator: Lakhwinder Tim MD Platelets (Bld) [#/Vol] 261 10*3/uL Normal 138-453 [facility] Comment on above: Performed By: #### C P, LIP, CDP #### [address] [place], [place] [address] Wheel Loader Operator: Lakhwinder Tim MD RBC (Bld) [#/Vol] 3.90 10*6/uL Low 3.95-5.11 [facility] Comment on above: Performed By: #### C P, LIP, CDP #### [address] [place] [address] Wheel Loader Operator: Lakhwinder Tim MD WBC (Bld) [#/Vol] 6.3 10*3/uL Normal 3.5-11.3 [facility] Comment on above: Performed By: #### C P, LIP, CDP #### [address] [place] [address] Wheel Loader Operator: Lakhwinder Tim MD UA w/Reflex Cultureon 2023 Bilirubin, SemiQt,Ur Negative Normal NEG [facility] Comment on above: Performed By: #### U MICAO, UAX #### [facility] [address] [place] [address] Wheel Loader Operator: Lakhwinder Tim MD Blood, Urine Negative Normal NEG [facility] Comment on above: Performed By: #### U MICAO, UAX #### [facility] [address] [place], [place] 8258883 Wheel Loader Operator: Lakhwinder Tim MD Clarity (U) Clear Normal CLEAR [facility] Comment on above: Performed By: #### U MICAO, UAX #### [facility] [address] [place], [place] 2403483 Wheel Loader Operator: Lakhwinder Tim MD Color (U) Yellow Normal YEL [facility] Comment on above: Performed By: #### U MICAO, UAX #### [address] [place], [place] 7632383 Wheel Loader Operator: Lakhwinder Tim MD Glucose Ql (U) Negative Normal NEG [facility] Comment on above: Performed By: #### U MICAO, UAX #### [facility] [address] [place] [address] [place]. [place], [place] 2700383 Wheel Loader Operator: Lakhwinder Tim MD Ketones Ql (U) Negative Normal NEG [facility] Comment on above: Performed By: #### U MICAO, UAX #### [facility] [address] [place] [address] [place]. [place], [place] 8496183 Wheel Loader Operator: Lakhwinder Tim MD Leukocyte esterase Test strip Ql (U) Negative Normal NEG [facility] Comment on above: Performed By: #### U MICAO, UAX #### [facility] [address] [place] [address] [place]. [place], [place] 0360683 Wheel Loader Operator: Lakhwinder Tim MD Nitrite,Ur Negative Normal NEG [facility] Comment on above: Performed By: #### U MICAO, UAX #### [facility] [address] [place] [address] Dr. [place], [place] 3691683 Wheel Loader Operator: Lakhwinder Tim MD PH,Ur 8.0 Normal 5.0-9.0 [facility] Comment on above: Performed By: #### U MICAO, UAX #### [facility] [address] [place], [place] 6703983 Wheel Loader Operator: Lakhwinder Tim MD Protein Ql (U) Negative Normal NEG [facility] Comment on above: Performed By: #### U MICAO, UAX #### [facility] [address] [place], [place] 6730183 Wheel Loader Operator: Lakhwinder Tim MD Spec. Fork,Ur 1.020 Normal 1.010-1.020 [facility] Comment on above: Performed By: #### U MICAO, UAX #### [facility] [address] [place], [place] 4988183 Wheel Loader Operator: Lakhwinder Tim MD Urobilinogen,Ur Normal Normal 0.0-1.0 [facility] Comment on above: Performed By: #### U MICAO, UAX #### [facility] [address] [place], [place] 8557083 Wheel Loader Operator: Lakhwinder Tim MD US PELVIS COMPLETEon [...] Jacob Cotter MD 02/05/[address] [facility] Urinalysis,Microon Bacteria TRACE Abnormal [facility] Comment on above: Performed By: #### U MICAO, UAX #### [facility] [address] [place], [place] 2776783 Wheel Loader Operator: Lakhwinder Tim MD Epithelial cells LM Ql (Urine sed) 0 TO 2 Normal 0-25 [facility] Comment on above: Performed By: #### U MICAO, UAX #### [facility] [address] [place], [place] 0802083 Wheel Loader Operator: Lakhwinder Tim MD Mucus Strands TRACE Abnormal [facility] Comment on above: Performed By: #### U MICAO, UAX #### [facility] [address] [place] [address] Wheel Loader Operator: Lakhwinder Tim MD Urine RBC's 0 TO 2 Normal 0-2 [facility] Comment on above: Performed By: #### U MICAO, UAX #### [facility] [address] [place] [address] Wheel Loader Operator: Lakhwinder Tim MD Urine WBC's 0 TO 2 Normal 0-5 [facility] Comment on above: Performed By: #### U MICAO, UAX #### [facility] [address] [place] [address] Wheel Loader Operator: Lakhwinder Tim MD CBC with Auto Differentialon 02-03-2024 Basophils (Bld) [#/Vol] 0.03 10*3/uL [facility] Basophils/100 WBC (Bld) 0 % 0 - 2 % [facility] Eosinophils (Bld) [#/Vol] 0.13 10*3/uL [facility] Eosinophils/100 WBC (Bld) 2 % 1 - 4 % [facility] Erythrocyte distribution width (RBC) [Ratio] 14.9 % High 11.8 - 14.4 % [facility] Hematocrit (Bld) [Volume fraction] 33.2 % Low 36.3 - 47.1 % [facility] Hemoglobin (Bld) [Mass/Vol] 10.8 g/dL Low 11.9 - 15.1 g/dL [facility] Immature granulocytes (Bld) [#/Vol] [facility] Immature granulocytes/100 WBC (Bld) 0 % 0 [facility] Interpretation and review of laboratory results Abnormal [facility] Lymphocytes/100 WBC (Bld) 48 % High 24 - 43 % [facility] Lymphocytes/100 WBC (Bld) 3.20 % [facility] MCH (RBC) [Entitic mass] 27.8 pg 25.2 - 33.5 pg [facility] MCHC (RBC) [Mass/Vol] 32.5 g/dL 28.4 - 34.8 g/dL [facility] MCV (RBC) [Entitic vol] 85.6 fL 82.6 - 102.9 fL [facility] Monocytes/100 WBC (Bld) 9 % 3 - 12 % [facility] Monocytes/100 WBC (Bld) 0.63 % [facility] Neutrophils/100 WBC (Bld) 41 % 36 - 65 % [facility] Nucleated RBC/100 WBC (Bld) [Ratio] 0.0 % 0.0 per 100 WBC [facility] Platelet mean volume (Bld) [Entitic vol] 9.8 fL 8.1 - 13.5 fL [facility] Platelets (Bld) [#/Vol] 275 10*3/uL [facility] RBC (Bld) [#/Vol] 3.88 10*6/uL Low 3.95 - 5.1 1 m/uL [facility] Segmented neutrophils/100 WBC (Bld) 2.78 % [facility] WBC other (Bld) [#/Vol] 6.8 [facility] CBC with Diffon 02-03-2024 Abs. Basophil 0.03 k/uL Normal 0.00-0.20 [facility] Comment on above: Performed By: #### C P, LIP, CDP #### [address] [place], [place] [address] Wheel Loader Operator: Lakhwinder Tim MD Abs.Imm.Granulocyte <0.03 Normal 0.00-0.30 [facility] Comment on above: Performed By: #### C P, LIP, CDP #### [address] [place], [place] [address] Wheel Loader Operator: Lakhwinder Tim MD Abs.Neutrophil (Seg) 2.78 k/uL Normal 1.50-8.10 [facility] Comment on above: Performed By: #### C P, LIP, CDP #### [address] [place] [address] Wheel Loader Operator: aLkhwinder Tim MD Basophils/100 WBC (Bld) 0 % Normal 0-2 [facility] Comment on above: Performed By: #### C P, LIP, CDP #### [address] [place], [place] [address] Wheel Loader Operator: Lakhwinder Tim MD Eosinophils (Bld) [#/Vol] 0.13 10*3/uL Normal 0.00-0.44 [facility] Comment on above: Performed By: #### C P, LIP, CDP #### [address] [place], [place] [address] Wheel Loader Operator: Lakhwinder Tim MD Eosinophils/100 WBC (Bld) 2 % Normal 1-4 [facility] Comment on above: Performed By: #### C P, LIP, CDP #### [address] [place] [id number] Wheel Loader Operator: Lakhwinder Tim MD Erythrocyte distribution width (RBC) [Ratio] 14.9 % High 11.8-14.4 [facility] Comment on above: Performed By: #### C P, LIP, CDP #### [facility] [address] [place], [place] 9394383 Wheel Loader Operator: Lakhwinder Tim MD Hematocrit (Bld) [Volume fraction] 33.2 % Low 36.3-47.1 [facility] Comment on above: Performed By: #### C P, LIP, CDP #### [facility] [address] [place], [place] 6203683 Wheel Loader Operator: Lakhwinder Tim MD Hemoglobin (Bld) [Mass/Vol] 10.8 g/dL Low 11.9-15.1 [facility] Comment on above: Performed By: #### C P, LIP, CDP #### [address] [place], [facility]83 Wheel Loader Operator: Lakhwinder Tim MD Immature granulocytes/100 WBC (Bld) 0 % Normal 0 [facility] Comment on above: Performed By: #### C P, LIP, CDP #### [address] [place], [facility]83 Wheel Loader Operator: Lakhwinder Tim MD Lymphocytes (Bld) [#/Vol] 3.20 10*3/uL Normal 1.10-3.70 [facility] Comment on above: Performed By: #### C P, LIP, CDP #### [address] [place], [place] 8643683 Wheel Loader Operator: Lakhwinder Tim MD Lymphocytes/100 WBC (Bld) 48 % High 24-43 [facility] Comment on above: Performed By: #### C P, LIP, CDP #### [address] [place], [facility]83 Wheel Loader Operator: Lakhwinder Tim MD MCH (RBC) [Entitic mass] 27.8 pg Normal 25.2-33.5 [facility] Comment on above: Performed By: #### C P, LIP, CDP #### [address] [place] [address] Wheel Loader Operator: Lakhwinder Tim MD MCHC (RBC) [Mass/Vol] 32.5 g/dL Normal 28.4-34.8 [facility] [facility] [place] Comment on above: Performed By: #### C P, LIP, CDP #### [facility] [address] [place] [address] [place] [address] Wheel Loader Operator: Lakhwinder Tim MD MCV (RBC) [Entitic vol] 85.6 fL Normal 82.6-102.9 [facility] Comment on above: Performed By: #### C P, LIP, CDP #### [address] [place], [place] [address] Wheel Loader Operator: Lakhwinder Tim MD Monocytes (Bld) [#/Vol] 0.63 10*3/uL Normal 0.10-1.20 [facility] Comment on above: Performed By: #### C P, LIP, CDP #### [address] [place], [facility]83 Wheel Loader Operator: Lakhwinder Tim MD Monocytes/100 WBC (Bld) 9 % Normal 3-12 [facility] Comment on above: Performed By: #### C P, LIP, CDP #### [address] [place], [facility]83 Wheel Loader Operator: Lakhwinder Tim MD Neutrophil (Seg) 41 % Normal 36-65 [facility] Comment on above: Performed By: #### C P, LIP, CDP #### [facility] [address] [place] [address] [place] [place], [place] 5637683 Wheel Loader Operator: Lakhwinder Tim MD NRBC Automated 0.0 per [address] [facility] Comment on above: Performed By: #### C P, LIP, CDP #### [facility] [address] [place], [place] 7[address]83 Wheel Loader Operator: Lakhwinder Tim MD Platelet mean volume (Bld) [Entitic vol] 9.8 fL Normal 8.1-13.5 [facility] Comment on above: Performed By: #### C P LIP, CDP #### [facility] [address] [place] [address] Wheel Loader Operator: Lakhwinder Tim MD Platelets (Bld) [#/Vol] 275 10*3/uL Normal 138-453 [facility] Comment on above: Performed By: #### C P, LIP, CDP #### [facility] [address] [place] [address] Wheel Loader Operator: Lakhwinder Tim MD RBC (Bld) [#/Vol] 3.88 10*6/uL Low 3.95-5.11 [facility] Comment on above: Performed By: #### C P LIP, CDP #### [address] [place], [place] 1145783 Wheel Loader Operator: Lahkwinder Tim MD WBC (Bld) [#/Vol] 6.8 10*3/uL Normal 3.5-11.3 [facility] Comment on above: Performed By: #### TOM Donahue, CDP #### [address] [place] [address] Wheel Loader Operator: Lakhwinder Tim MD CT ABDOMEN PELVIS [...] Tres Barillas MD 02/03/[address] [facility] CT Abdomen and Pelvis W cont rast Alexsander 02-03-2024 Multiloculated right adnexal cystic mass with inflammatory change. Recommend pelvic ultrasound. [facility] RIS CONSOLIDATED EXAMINATION: CT OF THE ABDOMEN [...] mass with inflammatory change. Recommend pelvic ultrasound. [facility] Radiology Study observation (narrative) [facility] CT Abdomen and Pelvis W cont rast IVOrdered By: Tres Barillas on 02-03-2024 [facility] Work Phone: Comp Metabolic Profon 2023 Albumin [Mass/Vol] 4.1 g/dL Normal 3.5-5.2 [facility] Comment on above: Performed By: #### C P, LIP, CDP #### [facility] [address] [place] [address] Wheel Loader Operator: Lakhwinder Tim MD Albumin/Glob Ratio 1.1 Normal 1.0-2.5 [facility] Comment on above: Performed By: #### C P, LIP, CDP #### [facility] [address] [place] [address] Wheel Loader Operator: Lakhwinder Tim MD Alkaline Phos 64 U/L Normal 35-104 [facility] Comment on above: Performed By: #### C P, LIP, CDP #### [facility] [address] [place], [place] [id number] Wheel Loader Operator: Lakhwinder Tim MD ALT [Catalytic activity/Vol] 7 U/L Normal 5-33 [facility] Comment on above: Performed By: #### C P, LIP, CDP #### [facility] [address] [place] [address] Wheel Loader Operator: Lakhwinder Tim MD Anion gap [Moles/Vol] 11 mmol/L Normal 9-17 [facility] Comment on above: Performed By: #### C P, LIP, CDP #### [facility] [address] [place], [place] 9416583 Wheel Loader Operator: Lakhwinder Tim MD AST [Catalytic activity/Vol] 12 U/L Normal <32 [facility] Comment on above: Performed By: #### C P, LIP, CDP #### [facility] [address] [place], [place] 3428683 Wheel Loader Operator: Lakhwinder Tim MD Bilirubin [Mass/Vol] 0.2 mg/dL Low 0.3-1.2 [facility] Comment on above: Performed By: #### C P, LIP, CDP #### [facility] [address] [place] [address] Wheel Loader Operator: Lakhwinder Tim MD BUN/CRE Ratio 20 Normal 9-20 [facility] Comment on above: Performed By: #### C P, LIP, CDP #### [facility] [address] [place] [address] Wheel Loader Operator: Lakhwinder Tim MD Calcium [Mass/Vol] 8.9 mg/dL Normal 8.6-10.4 [facility] Comment on above: Performed By: #### C P, LIP, CDP #### [facility] [address] [place], [place] 6414383 Wheel Loader Operator: Lakhwinder Tim MD Chloride [Moles/Vol] 99 mmol/L Normal 98-107 [facility] Comment on above: Performed By: #### C P, LIP, CDP #### [facility] [address] [place] [address] Wheel Loader Operator: Lakhwinder Tim MD CO2 [Moles/Vol] 28 mmol/L Normal 20-31 [facility] Comment on above: Performed By: #### C P, LIP, CDP #### [facility] [address] [place], [place] 3409683 Wheel Loader Operator: Lakhwinder Tim MD Creatinine [Mass/Vol] 0.6 mg/dL Normal 0.5-0.9 [facility] Comment on above: Performed By: #### C P, LIP, CDP #### [facility] [address] [place], [place] 9189883 Wheel Loader Operator: Lakhwinder Tim MD GFR/1.73 sq M.predicted among non-blacks MDRD (S/P/Bld) [Vol rate/Area] mL/min/{1.73_m2} Normal >60 [facility] Comment on above: Result Comment: These [...] By: #### C P, LIP, CDP #### [facility] [address] [place], [place] 5687683 Wheel Loader Operator: Lakhwinder Tim MD Glucose [Mass/Vol] 86 mg/dL Normal 70-99 [facility] Comment on above: Performed By: #### C P, LIP, CDP #### [facility] [address] [place], [place] 0963183 Wheel Loader Operator: Lakhwinder Tim MD Potassium [Moles/Vol] 3.8 mmol/L Normal 3.7-5.3 [facility] Comment on above: Performed By: #### C P, LIP, CDP #### [facility] [address] [place], [place] 7412183 Wheel Loader Operator: Lakhwinder Tim MD Protein [Mass/Vol] 7.8 g/dL Normal 6.4-8.3 [facility] Comment on above: Performed By: #### C P, LIP, CDP #### [facility] [address] [place], [place] [address]3 Wheel Loader Operator: Lakhwinder Tim MD Sodium [Moles/Vol] 138 mmol/L Normal 135-144 [facility] Comment on above: Performed By: #### C P, LIP, CDP #### [facility] [address] [place], [place] 2790183 Wheel Loader Operator: Lakhwinder Tim MD Urea nitrogen [Mass/Vol] 12 mg/dL Normal 6-20 [facility] Comment on above: Performed By: #### C P, LIP, CDP #### [facility] [address] [place] [address] Wheel Loader Operator: Lakhwinder Tim MD Comprehensive Metabolic [facility] 02-03-2024 Albumin [Mass/Vol] 4.1 g/dL 3.5 - 5.2 g/dL [facility] Albumin/Globulin [Mass ratio] 1.1 {ratio} 1.0 - 2.5 [facility] ALP [Catalytic activity/Vol] 64 U/L 35 - 104 U/L [facility] ALT [Catalytic activity/Vol] 7 U/L 5 - 33 U/L [facility] Anion gap [Moles/Vol] 11 mmol/L 9 - 17 mmol/L [facility] AST [Catalytic activity/Vol] 12 U/L NINF - 32 U/L [facility] Bilirubin [Mass/Vol] 0.2 mg/dL Low 0.3 - 1 .2 mg/dL [facility] Calcium [Mass/Vol] 8.9 mg/dL 8.6 - 10. 4 mg/dL [facility] Chloride [Moles/Vol] 99 mmol/L 98 - 10 7 mmol/L [facility] CO2 [Moles/Vol] 28 mmol/L 20 - 31 mmol/L [facility] Creatinine [Mass/Vol] 0.6 mg/dL 0.5 - 0.9 mg/dL [facility] Est, Glom Filt Rate - [facility] Comment on above: These results [...] [Mass/Vol] 86 mg/dL 70 - 99 mg/dL [facility] Interpretation and review of laboratory results Abnormal [facility] Potassium [Moles/Vol] 3.8 mmol/L 3.7 - 5.3 mmol/L [facility] Protein [Mass/Vol] 7.8 g/dL 6.4 - 8.3 g/dL [facility] Sodium [Moles/Vol] 138 mmol/L 135 - 144 mmol/L [facility] Urea nitrogen [Mass/Vol] 12 mg/dL 6 - 20 mg/dL [facility] Urea nitrogen/Creatinine [Mass ratio] 20 mg/mg 9 - 20 [facility] HCG, ,Urineon 02-02 Beta HCG ( test) Ql (U) Negative Normal NEG [facility] Comment on above: Result Comment: Spec imens with hCG levels near the threshold of the test (25 mIU/mL) may give a negative or indeterminate result. In such cases, another test should be performed with a new specimen in 48-72 hours. If early is suspected clinically in this setting, correlation with quantitative serum b-hCG level is suggested. [facility] has confirmed the use of plasma for this test. This has not been cleared or approved by the U.S. Food and Drug Administration. The FDA has determined that such clearance is not necessary. Performed By: #### C P, LIP, CDP #### [facility] [address] [place] [address] Wheel Loader Operator: Lakhwinder Tim MD Lactic Acidon 02-03-2024 Lactate (BldV) [Moles/Vol] 1.0 mmol/L 0.5 - 2.2 mmol/L [facility] Lactate [Moles/Vol] 1.0 mmol/L Normal 0.5-2.2 [facility] Comment on above: Performed By: #### L ACTIC #### [facility] [address] [place] [address] Wheel Loader Operator: Lakhwinder Tim MD Lipaseon 02-03-2024 Lipase [Catalytic activity/Vol] 29 U/L 13 - 60 U/L [facility] Lipase [Catalytic activity/Vol] 29 U/L Normal 13-60 [facility] Comment on above: Performed By: #### C P, LIP, CDP #### [facility] [address] [place] [address] Wheel Loader Operator: Lakhwinder Tim MD No Panel Informationon 02-02 [facility] , Urineon HCG ( test) Ql (U) Negative NEGATIVE [facility] Comment on above: Specimens with hCG l evels near the threshold of the test (25 mIU/mL) may give a negative or indeterminate result. In such cases, another test should be performed with a new specimen in 48-72 hours. If early is suspected clinically in this setting, correlation with quantitative serum b-hCG level is suggested. [facility] has confirmed the use of plasma for this test. This has not been cleared or approved by the U.S. Food and Drug Administration. The FDA has determined that such clearance is not necessary. [facility] Urinalysis w/ Microon 2023 Bacteria TRACE Abnormal NONE [facility] Comment on above: Performed By: #### C P, LIP, CDP #### [facility] [address] [place], [place] 1528883 Wheel Loader Operator: Lakhwinder Tim MD Bilirubin, SemiQt,Ur Negative Normal NEG [facility] Comment on above: Performed By: #### C P, LIP, CDP #### [facility] [address] [place] [address] Wheel Loader Operator: Lakhwinder Tim MD Blood, Urine Negative Normal NEG [facility] Comment on above: Performed By: #### C P, LIP, CDP #### [facility] [address] [place], [place] 8560883 Wheel Loader Operator: Lakhwinder Tim MD Clarity (U) Clear Normal CLEAR [facility] Comment on above: Performed By: #### C P, LIP, CDP #### [facility] [address] [place] [address] Wheel Loader Operator: Lakhwinder Tim MD Color (U) Yellow Normal YEL [facility] Comment on above: Performed By: #### C P, LIP, CDP #### [facility] [address] [place] [address] Wheel Loader Operator: Lakhwinder Tim MD Epithelial cells LM Ql (Urine sed) 2 TO 5 Normal 0-25 [facility] Comment on above: Performed By: #### C P, LIP, CDP #### [facility] [address] [place], [place] 1372483 Wheel Loader Operator: Lakhwinder Tim MD Glucose Ql (U) Negative Normal NEG [facility] Comment on above: Performed By: #### C P, LIP, CDP #### [facility] [address] [place] [address] Dr. [place], [place] 3056083 Wheel Loader Operator: Lakhwinder Tim MD Ketones Ql (U) Negative Normal NEG [facility] Comment on above: Performed By: #### C P, LIP, CDP #### [facility] [address] [place] [address] [place]. [place], [place] 4458483 Wheel Loader Operator: Lakhwinder Tim MD Leukocyte esterase Test strip Ql (U) Negative Normal NEG [facility] Comment on above: Performed By: #### C P, LIP, CDP #### [address] [place], [place] 1880683 Wheel Loader Operator: Lakhwinder Tim MD Mucus Strands 2+ Abnormal NONE [facility] Comment on above: Performed By: #### C P, LIP, CDP #### [facility] [address] [place] [address] Dr. [place], [place] 5019783 Wheel Loader Operator: Lakhwinder Tim MD Nitrite,Ur Negative Normal NEG [facility] Comment on above: Performed By: #### C P, LIP, CDP #### [facility] [address] [place] [address] Dr. [place], [place] 4229183 Wheel Loader Operator: Lakhwinder Tim MD PH,Ur 6.0 Normal 5.0-9.0 [facility] Comment on above: Performed By: #### C P, LIP, CDP #### [facility] [address] [place], [place] 7440883 Wheel Loader Operator: Lakhwinder Tim MD Protein Ql (U) Negative Normal NEG [facility] Comment on above: Performed By: #### C P, LIP, CDP #### [facility] [address] [place], [place] 8058183 Wheel Loader Operator: Lakhwinder Tim MD Spec. Fork,Ur >1.030 High 1.010-1.020 [facility] Comment on above: Performed By: #### C P, LIP, CDP #### [facility] [address] [place], [place] 5465883 Wheel Loader Operator: Lakhwinder Tim MD Urine RBC's 0 TO 2 Normal 0-2 [facility] Comment on above: Performed By: #### C P, LIP, CDP #### [facility] [address] [place], [place] 9865383 Wheel Loader Operator: Lakhwinder Tim MD Urine WBC's 0 TO 2 Normal 0-5 [facility] Comment on above: Performed By: #### C P, LIP, CDP #### [facility] [address] [place] [address] [place]. [place], [place] 2237083 Wheel Loader Operator: Lakhwinder Tim MD Urobilinogen,Ur Normal Normal 0.0-1.0 [facility] Comment on above: Performed By: #### C P, LIP, CDP #### [facility] [address] [place] [address] [place]. [place], [place] [address] Wheel Loader Operator: Lakhwinder Tim MD Urinalysis with Microscopico n 02-03-2024 Bacteria LM Ql (Urine sed) TRACE Abnormal None [facility] Bilirubin Ql (U) Negative NEGATIVE [facility] Clarity (U) Clear Clear [facility] Color (U) Yellow Yellow [facility] Epithelial cells LM.HPF (Urine sed) [#/Area] 2 TO 5 [facility] Glucose Test strip (U) [Mass/Vol] Negative NEGATIVE mg/dL [facility] Hemoglobin Auto test strip Ql (U) Negative NEGATIVE [facility] Interpretation and review of laboratory results Abnormal [facility] Ketones (U) [Mass/Vol] Negative NEGATIVE mg/dL [facility] Leukocyte esterase Test strip Ql (U) Negative NEGATIVE [facility] Mucus Ql (Urine sed) 2+ Abnormal None [facility] Nitrite Ql (U) Negative NEGATIVE [facility] pH (U) 6.0 [pH] 5.0 - 9.0 [facility] Protein (U) [Mass/Vol] Negative NEGATIVE mg/dL [facility] RBC LM.HPF (Urine sed) [#/Area] 0 TO 2 [facility] Specific gravity (U) [Rel density] High 1.010 - 1.020 [facility] Urobilinogen Qn (U) Normal 0.0 - 1. 0 EU/dL [facility] WBC LM.HPF (Urine sed) [#/Area] 0 TO 2 [facility] CBC AND AUTO DIFFon 01-17-20 24 ABSOLUTE BASOPHIL 0.0 X10E9/L Normal 0.0-0.2 [facility] Comment on above: Performed By: #### 2 823-3 #### [facility] ([id number]) [address], [address] [place] [address] ABSOLUTE NEUTROPHIL 7.1 X10E9/L High 1.5-6.6 [facility] Comment on above: Performed By: #### 2 823-3 #### [facility] ([id number]) [address], [address] [place] [address] Basophils/100 WBC (Bld) 0.2 % Normal [facility] Comment on above: Performed By: #### 2 823-3 #### [facility] ([id number]) [address] [place] [address] Eosinophils (Bld) [#/Vol] 0.1 10*3/uL Normal 0.0-0.4 [facility] Comment on above: Performed By: #### 2 823-3 #### [facility] ([id number]) [address], [address] [place] [address] Eosinophils/100 WBC (Bld) 1.4 % Normal [facility] Comment on above: Performed By: #### 2 823-3 #### [facility] ([id number]) [address], [address] [place] [address] Erythrocyte distribution width (RBC) [Ratio] 15.3 % High 11.5-15.0 [facility] Comment on above: Performed By: #### 2 823-3 #### [facility] ([id number]) [address], [address] [place] [address] Hematocrit (Bld) [Volume fraction] 30.6 % Low 35-47 [facility] Comment on above: Performed By: #### 2 823-3 #### [facility] ([id number]) [address], [address] [place] [address] Hemoglobin (Bld) [Mass/Vol] 10.1 g/dL Low 11.7-15.5 [facility] Comment on above: Performed By: #### 2 823-3 #### [facility] ([id number]) [address], [address] [place] [address] Lymphocytes (Bld) [#/Vol] 1.8 10*3/uL Normal 1.0-3.5 [facility] Comment on above: Performed By: #### 2 823-3 #### [facility] ([id number]) [address] [place] [address] Lymphocytes/100 WBC (Bld) 18.1 % Normal [facility] Comment on above: Performed By: #### 2 823-3 #### [facility] ([id number]) [address], [address] [place] [address] MCH (RBC) [Entitic mass] 27.7 pg Normal 27-34 [facility] Comment on above: Performed By: #### 2 823-3 #### [facility] ([id number]) [address], [address] [place] [address] MCHC (RBC) [Mass/Vol] 32.9 g/dL Normal 32-36 [facility] Comment on above: Performed By: #### 2 823-3 #### [facility] ([id number]) [address], [address] [place] [address] MCV (RBC) [Entitic vol] 84 fL Normal 80-100 [facility] Comment on above: Performed By: #### 2 823-3 #### [facility] ([id number]) [address] [place] [address] Monocytes (Bld) [#/Vol] 1.0 10*3/uL High 0-0.9 [facility] Comment on above: Performed By: #### 2 823-3 #### [facility] ([id number]) [address], [address] [place] [address] Monocytes/100 WBC (Bld) 9.6 % Normal [facility] Comment on above: Performed By: #### 2 823-3 #### [facility] ([id number]) [address] [place] [address] Neutrophils/100 WBC (Bld) 70.7 % Normal [facility] Comment on above: Performed By: #### 2 823-3 #### [facility] ([id number]) [address] [place] [address] Platelet mean volume (Bld) [Entitic vol] 7.8 fL Normal 7-12 [facility] Comment on above: Performed By: #### 2 823-3 #### [facility] ([id number]) [address], [address] [place] [address] Platelets (Bld) [#/Vol] 404 10*3/uL Normal 150-450 [facility] Comment on above: Performed By: #### 2 823-3 #### [facility] ([id number]) [address], [address] [place] [address] RBC COUNT 3.64 X10E12/L Low 3.80-5.20 [facility] Comment on above: Performed By: #### 2 823-3 #### [facility] ([id number]) [address], [address] [place] [address] WBC (Bld) [#/Vol] 10.1 10*3/uL Normal 4.0-11.0 [facility] Comment on above: Performed By: #### 2 823-3 #### [facility] ([id number]) [address], [address] [place] [address] COMPREHENSIVE METABOLIC PANE [place] 01-17-2024 Albumin [Mass/Vol] 3.0 g/dL Low 3.2-5.3 [facility] Comment on above: Performed By: #### 2 823-3 #### [facility] ([id number]) [address], [address] [place] [address] ALP [Catalytic activity/Vol] 76 U/L Normal 39-130 [facility] Comment on above: Performed By: #### 2 823-3 #### [facility] ([id number]) [address], [address] [place] [address] ALT [Catalytic activity/Vol] 10 U/L Normal 0-31 [facility] Comment on above: Performed By: #### 2 823-3 #### [facility] ([id number]) [address], [address] [place] [address] Anion gap [Moles/Vol] 9 mmol/L Normal 5-15 [facility] Comment on above: Performed By: #### 2 823-3 #### [facility] ([id number]) [address], [address] [place] [address] AST [Catalytic activity/Vol] 10 U/L Normal 0-41 [facility] Comment on above: Performed By: #### 2 823-3 #### [facility] ([id number]) [address], [address] [place] [address] Bilirubin [Mass/Vol] 0.2 mg/dL Low 0.3-1.2 [facility] Comment on above: Performed By: #### 2 823-3 #### [facility] ([id number]) [address], [address] [place] [address] Calcium [Mass/Vol] 8.6 mg/dL Normal 8.5-10.5 [facility] Comment on above: Performed By: #### 2 823-3 #### [facility] ([id number]) [address], [address] [place] [address] Chloride [Moles/Vol] 99 mmol/L Normal 98-109 [facility] Comment on above: Performed By: #### 2 823-3 #### [facility] ([id number]) [address] [place] [address] CO2 [Moles/Vol] 28 mmol/L Normal 22-32 [facility] Comment on above: Performed By: #### 2 823-3 #### [facility] ([id number]) [address], [address] [place] [address] Creatinine [Mass/Vol] 0.44 mg/dL Normal 0.40-1.00 [facility] Comment on above: Result Comment: METH OD TRACEABLE TO IDMS STANDARD Performed By: #### 2 823-3 #### [facility] ([id number]) [address], [address] [place] [address] eGFR (CKD-EPI) NON-RACE DEPENDENT >90 Normal >59 [facility] Comment on above: Result Comment: Reported eGFR is based on the CKD-EPI 2020 equation that does not use a race coefficient. Performed By: #### 2 823-3 #### [facility] ([id number]) [address], [address] [place] [address] Glucose [Mass/Vol] 87 mg/dL Normal 65-99 [facility] Comment on above: Performed By: #### 2 823-3 #### [facility] ([id number]) [address] [place] [address] Potassium [Moles/Vol] 3.9 mmol/L Normal 3.5-5.0 [facility] Comment on above: Performed By: #### 2 823-3 #### [facility] ([id number]) [address], [address] [place] [address] Protein [Mass/Vol] 6.3 g/dL Normal 6.0-8.0 [facility] Comment on above: Performed By: #### 2 823-3 #### [facility] ([id number]) [address], [address] [place] [address] Sodium [Moles/Vol] 136 mmol/L Normal 134-146 [facility] Comment on above: Performed By: #### 2 823-3 #### [facility] ([id number]) [address], [address] [place] [address] Urea nitrogen [Mass/Vol] 5 mg/dL Normal 5-23 [facility] Comment on above: Performed By: #### 2 823-3 #### [facility] ([id number]) [address], [address] [place] [address] CBC AND AUTO DIFFon 01-16-20 24 ABSOLUTE BASOPHIL 0.0 X10E9/L Normal 0.0-0.2 [facility] Comment on above: Performed By: #### 2 823-3 #### [facility] ([id number]) [address], [address] [place] [address] ABSOLUTE NEUTROPHIL 8.2 X10E9/L High 1.5-6.6 [facility] Comment on above: Performed By: #### 2 823-3 #### [facility] ([id number]) [address], [address] [place] [address] Basophils/100 WBC (Bld) 0.2 % Normal [facility] Comment on above: Performed By: #### 2 823-3 #### [facility] ([id number]) [address], [address] [place] [address] Eosinophils (Bld) [#/Vol] 0.0 10*3/uL Normal 0.0-0.4 [facility] Comment on above: Performed By: #### 2 823-3 #### [facility] ([id number]) [address], [address] [place] [address] Eosinophils/100 WBC (Bld) 0.1 % Normal [facility] Comment on above: Performed By: #### 2 823-3 #### [facility] ([id number]) [address], [facility] [address] [place] [address] Erythrocyte distribution width (RBC) [Ratio] 15.3 % High 11.5-15.0 [facility] Comment on above: Performed By: #### 2 823-3 #### [facility] ([id number]) [address], [address] [place] [address] Hematocrit (Bld) [Volume fraction] 31.5 % Low 35-47 [facility] Comment on above: Performed By: #### 2 823-3 #### [facility] ([id number]) [address], [address] [place] [address] Hemoglobin (Bld) [Mass/Vol] 10.5 g/dL Low 11.7-15.5 [facility] Comment on above: Performed By: #### 2 823-3 #### [facility] ([id number]) [address], [address] [place] [address] Lymphocytes (Bld) [#/Vol] 1.2 10*3/uL Normal 1.0-3.5 [facility] Comment on above: Performed By: #### 2 823-3 #### [facility] ([id number]) [address], [address] [place] [address] Lymphocytes/100 WBC (Bld) 12.0 % Normal [facility] Comment on above: Performed By: #### 2 823-3 #### [facility] ([id number]) [address], [address] [place] [address] MCH (RBC) [Entitic mass] 28.0 pg Normal 27-34 [facility] Comment on above: Performed By: #### 2 823-3 #### [facility] ([id number]) [address], [address] [place] [address] MCHC (RBC) [Mass/Vol] 33.3 g/dL Normal 32-36 [facility] Comment on above: Performed By: #### 2 823-3 #### [facility] ([id number]) [address], [address] [place] [address] MCV (RBC) [Entitic vol] 84 fL Normal 80-100 [facility] Comment on above: Performed By: #### 2 823-3 #### [facility] ([id number]) [address], [address] [place] [address] Monocytes (Bld) [#/Vol] 0.7 10*3/uL Normal 0-0.9 [facility] Comment on above: Performed By: #### 2 823-3 #### [facility] ([id number]) [address], [address] [place] [address] Monocytes/100 WBC (Bld) 6.5 % Normal [facility] Comment on above: Performed By: #### 2 823-3 #### [facility] ([id number]) [address], [address] [place] [address] Neutrophils/100 WBC (Bld) 81.2 % Normal [facility] Comment on above: Performed By: #### 2 823-3 #### [facility] ([id number]) [address], [address] [place] [address] Platelet mean volume (Bld) [Entitic vol] 8.8 fL Normal 7-12 [facility] Comment on above: Performed By: #### 2 823-3 #### [facility] ([id number]) [address], [address] [place] [address] Platelets (Bld) [#/Vol] 341 10*3/uL Normal 150-450 [facility] Comment on above: Performed By: #### 2 823-3 #### [facility] ([id number]) [address], [address] [place] [address] RBC COUNT 3.75 X10E12/L Low 3.80-5.20 [facility] Comment on above: Performed By: #### 2 823-3 #### [facility] ([id number]) [address], [address] [place] [address] WBC (Bld) [#/Vol] 10.1 10*3/uL Normal 4.0-11.0 [facility] Comment on above: Performed By: #### 2 823-3 #### [facility] ([id number]) [address], [address] [place] [address] COMPREHENSIVE METABOLIC PANE Blaine 01-16-2024 Albumin [Mass/Vol] 3.2 g/dL Normal 3.2-5.3 [facility] Comment on above: Performed By: #### 2 823-3 #### [facility] ([id number]) [address], [address] [place] [address] ALP [Catalytic activity/Vol] 95 U/L Normal 39-130 [facility] Comment on above: Performed By: #### 2 823-3 #### [facility] ([id number]) [address], [address] [place] [address] ALT [Catalytic activity/Vol] 12 U/L Normal 0-31 [facility] Comment on above: Performed By: #### 2 823-3 #### [facility] ([id number]) [address], [address] [place] [address] Anion gap [Moles/Vol] 14 mmol/L Normal 5-15 [facility] Comment on above: Performed By: #### 2 823-3 #### [facility] ([id number]) [address], [address] [place] [address] AST [Catalytic activity/Vol] 9 U/L Normal 0-41 [facility] Comment on above: Performed By: #### 2 823-3 #### [facility] ([id number]) [address], [address] [place] [address] Bilirubin [Mass/Vol] 0.3 mg/dL Normal 0.3-1.2 [facility] Comment on above: Performed By: #### 2 823-3 #### [facility] ([id number]) [address], [address] [place] [address] Calcium [Mass/Vol] 8.9 mg/dL Normal 8.5-10.5 [facility] Comment on above: Performed By: #### 2 823-3 #### [facility] ([id number]) [address], [address] [place] [address] Chloride [Moles/Vol] 98 mmol/L Normal 98-109 [facility] Comment on above: Performed By: #### 2 823-3 #### [facility] ([id number]) [address], [address] [place] [address] CO2 [Moles/Vol] 24 mmol/L Normal 22-32 [facility] Comment on above: Performed By: #### 2 823-3 #### [facility] ([id number]) [address], [address] [place] [address] Creatinine [Mass/Vol] 0.35 mg/dL Low 0.40-1.00 [facility] Comment on above: Result Comment: METH OD TRACEABLE TO IDMS STANDARD Performed By: #### 2 823-3 #### [facility] ([id number]) [address], [address] [place] [address] eGFR (CKD-EPI) NON-RACE DEPENDENT >90 Normal >59 [facility] Comment on above: Result Comment: Reported eGFR is based on the CKD-EPI 2020 equation that does not use a race coefficient. Performed By: #### 2 823-3 #### [facility] ([id number]) [address], [address] [place] [address] Glucose [Mass/Vol] 82 mg/dL Normal 65-99 [facility] Comment on above: Performed By: #### 2 823-3 #### [facility] ([id number]) [address], [address] [place] [address] Potassium [Moles/Vol] 3.7 mmol/L Normal 3.5-5.0 [facility] Comment on above: Performed By: #### 2 823-3 #### [facility] ([id number]) [address], [address] [place] [address] Protein [Mass/Vol] 7.0 g/dL Normal 6.0-8.0 [facility] Comment on above: Performed By: #### 2 823-3 #### [facility] ([id number]) [address], [address] [place] [address] Sodium [Moles/Vol] 136 mmol/L Normal 134-146 [facility] Comment on above: Performed By: #### 2 823-3 #### [facility] ([id number]) [address], [address] [place] [address] Urea nitrogen [Mass/Vol] 5 mg/dL Normal 5-23 [facility] Comment on above: Performed By: #### 2 823-3 #### [facility] ([id number]) [address], [address] [place] [address] MAGNESIUMon 01-16-2024 Magnesium [Mass/Vol] 1.8 mg/dL Normal 1.8-2.6 [facility] Comment on above: Performed By: #### 2 823-3 #### [facility] ([id number]) [address], [address] [place] [address] PHOSPHORUSon 01-16-2024 Phosphate [Mass/Vol] 3.3 mg/dL Normal 2.4-4.9 [facility] Comment on above: Performed By: #### 2 823-3 #### [facility] ([id number]) [address], [address] [place] [address] POTASSIUMon 01-16-2024 Potassium [Moles/Vol] 3.5 mmol/L Normal 3.5-5.0 [facility] Comment on above: Performed By: #### 2 823-3 #### [facility] ([id number]) [address], [address] [place] [address] Potassium [Moles/Vol] 3.8 mmol/L Normal 3.5-5.0 [facility] Comment on above: Performed By: #### C RT #### [facility] ([id number]) [address], [address] [place] [address] ANAEROBE CULTUREon 4 Bacteria identified Anaer cx Nom (Unsp spec) CULTURE RESULTS NO GROWTH 5 DAYS Normal [facility] Comment on above: Performed By: #### 2 823-3 #### [facility] ([id number]) [address], [address] [place] [address] ASPIRATE CULTUREon 4 Bacteria identified Aer cx Nom (Asp) GRAM STAIN 10 to 24 WHITE BLOOD CELLS/LPF 0 to 1 SQUAMOUS EPITHELIAL CELLS/LPF NO ORGANISMS SEEN CULTURE RESULTS NO GROWTH 5 DAYS Normal [facility] Comment on above: Performed By: #### C RT #### [facility] ([id number]) [address], [address] [place] [address] CBC AND AUTO DIFFon 01-15-20 24 ABSOLUTE BASOPHIL 0.0 X10E9/L Normal 0.0-0.2 [facility] Comment on above: Performed By: #### C RT #### [facility] ([id number]) [address], [address] [place] [address] ABSOLUTE NEUTROPHIL 8.6 X10E9/L High 1.5-6.6 [facility] Comment on above: Performed By: #### C RT #### [facility] ([id number]) [address], [address] [place] [address] Basophils/100 WBC (Bld) 0.2 % Normal [facility] Comment on above: Performed By: #### C RT #### [facility] ([id number]) [address], [address] [place] [address] Eosinophils (Bld) [#/Vol] 0.1 10*3/uL Normal 0.0-0.4 [facility] Comment on above: Performed By: #### C RT #### [facility] ([id number]) [address], [address] [place] [address] Eosinophils/100 WBC (Bld) 0.9 % Normal [facility] Comment on above: Performed By: #### C RT #### [facility] ([id number]) [address], [address] [place] [address] Erythrocyte distribution width (RBC) [Ratio] 14.9 % Normal 11.5-15.0 [facility] Comment on above: Performed By: #### C RT #### [facility] ([id number]) [address], [address] [place] [address] Hematocrit (Bld) [Volume fraction] 27.7 % Low 35-47 [facility] Comment on above: Performed By: #### C RT #### [facility] ([id number]) [address], [address] [place] [address] Hemoglobin (Bld) [Mass/Vol] 9.1 g/dL Low 11.7-15.5 [facility] Comment on above: Performed By: #### C RT #### [facility] ([id number]) [address], [address] [place] [address] Lymphocytes (Bld) [#/Vol] 1.3 10*3/uL Normal 1.0-3.5 [facility] Comment on above: Performed By: #### C RT #### [facility] ([id number]) [address], [address] [place] [address] Lymphocytes/100 WBC (Bld) 11.2 % Normal [facility] Comment on above: Performed By: #### C RT #### [facility] ([id number]) [address], [address] [place] [address] MCH (RBC) [Entitic mass] 27.3 pg Normal 27-34 [facility] Comment on above: Performed By: #### C RT #### [facility] ([id number]) [address], [address] [place] [address] MCHC (RBC) [Mass/Vol] 32.7 g/dL Normal 32-36 [facility] Comment on above: Performed By: #### C RT #### [facility] ([id number]) [address], [address] [place] [address] MCV (RBC) [Entitic vol] 83 fL Normal 80-100 [facility] Comment on above: Performed By: #### C RT #### [facility] ([id number]) [address], [address] [place] [address] Monocytes (Bld) [#/Vol] 1.2 10*3/uL High 0-0.9 [facility] Comment on above: Performed By: #### C RT #### [facility] ([id number]) [address], [address] [place] [address] Monocytes/100 WBC (Bld) 10.5 % Normal [facility] Comment on above: Performed By: #### C RT #### [facility] ([id number]) [address], [address] [place] [address] Neutrophils/100 WBC (Bld) 77.2 % Normal [facility] Comment on above: Performed By: #### C RT #### [facility] ([id number]) [address], [address] [place] [address] Platelet mean volume (Bld) [Entitic vol] 8.4 fL Normal 7-12 [facility] Comment on above: Performed By: #### C RT #### [facility] ([id number]) [address], [address] [place] [address] Platelets (Bld) [#/Vol] 251 10*3/uL Normal 150-450 [facility] Comment on above: Performed By: #### C RT #### [facility] ([id number]) [address], [address] [place] [address] RBC COUNT 3.32 X10E12/L Low 3.80-5.20 [facility] Comment on above: Performed By: #### C RT #### [facility] ([id number]) [address], [address] [place] [address] WBC (Bld) [#/Vol] 11.2 10*3/uL High 4.0-11.0 [facility] Comment on above: Performed By: #### C RT #### [facility] ([id number]) [address], [address] [place] [address] COMPREHENSIVE METABOLIC PANE Blaine 01-15-2024 Albumin [Mass/Vol] 3.0 g/dL Low 3.2-5.3 [facility] Comment on above: Performed By: #### C RT #### [facility] ([id number]) [address], [address] [place] [address] ALP [Catalytic activity/Vol] 97 U/L Normal 39-130 [facility] Comment on above: Performed By: #### C RT #### [facility] ([id number]) [address], [address] [place] [address] ALT [Catalytic activity/Vol] 14 U/L Normal 0-31 [facility] Comment on above: Performed By: #### C RT #### [facility] ([id number]) [address], [address] [place] [address] Anion gap [Moles/Vol] 10 mmol/L Normal 5-15 [facility] Comment on above: Performed By: #### C RT #### [facility] ([id number]) [address], [address] [place] [address] AST [Catalytic activity/Vol] 13 U/L Normal 0-41 [facility] Comment on above: Performed By: #### C RT #### [facility] ([id number]) [address], [address] [place] [address] Bilirubin [Mass/Vol] 0.7 mg/dL Normal 0.3-1.2 [facility] Comment on above: Performed By: #### C RT #### [facility] ([id number]) [address], [address] [place] [address] Calcium [Mass/Vol] 8.4 mg/dL Low 8.5-10.5 [facility] Comment on above: Performed By: #### C RT #### [facility] ([id number]) [address], [address] [place] [address] Chloride [Moles/Vol] 101 mmol/L Normal 98-109 [facility] Comment on above: Performed By: #### C RT #### [facility] ([id number]) [address], [address] [place] [address] CO2 [Moles/Vol] 28 mmol/L Normal 22-32 [facility] Comment on above: Performed By: #### C RT #### [facility] ([id number]) [address], [address] [place] [address] Creatinine [Mass/Vol] 0.41 mg/dL Normal 0.40-1.00 [facility] Comment on above: Result Comment: METH OD TRACEABLE TO IDMS STANDARD Performed By: #### C RT #### [facility] ([id number]) [address], [address] [place] [address] eGFR (CKD-EPI) NON-RACE DEPENDENT >90 Normal >59 [facility] Comment on above: Result Comment: Reported eGFR is based on the CKD-EPI 2020 equation that does not use a race coefficient. Performed By: #### C RT #### [facility] ([id number]) [address], [address] [place] [address] Glucose [Mass/Vol] 85 mg/dL Normal 65-99 [facility] Comment on above: Performed By: #### C RT #### [facility] ([id number]) [address] [place] [address] Potassium [Moles/Vol] 3.4 mmol/L Low 3.5-5.0 [facility] Comment on above: Performed By: #### C RT #### [facility] ([id number]) [address], [address] [place] [address] Protein [Mass/Vol] 6.0 g/dL Normal 6.0-8.0 [facility] Comment on above: Performed By: #### C RT #### [facility] ([id number]) [address], [address] [place] [address] Sodium [Moles/Vol] 139 mmol/L Normal 134-146 [facility] Comment on above: Performed By: #### C RT #### [facility] ([id number]) [address], [address] [place] [address] Urea nitrogen [Mass/Vol] 2 mg/dL Low 5-23 [facility] Comment on above: Performed By: #### C RT #### [facility] ([id number]) [address], [address] [place] [address] Fibrinogen Coagulation.deriv ed (PPP) [Mass/Vol]on 01-15-2024 FIBRINOGEN 647 mg/dL High 190-480 [facility] Comment on above: Performed By: #### C RT #### [facility] ([id number]) [address], [address] [place] [address] POTASSIUMon 01-15-2024 Potassium [Moles/Vol] 3.5 mmol/L Normal 3.5-5.0 [facility] Comment on above: Performed By: #### C RT #### [facility] ([id number]) [address], [address] [place] [address] PROTIME AND INRon 01-15-2024 INR Coag (PPP) [Relative time] 1.6 {INR} High 0.8-1.1 [facility] Comment on above: Performed By: #### C RT #### [facility] ([id number]) [address], [address] [address] PT Coag (PPP) [Time] 17.8 s High 9.8-13.2 [facility] Comment on above: Performed By: #### C RT #### [facility] ([id number]) [address], [address] [address] aPTT Coag (PPP) [Time]on aPTT Coag (Bld) [Time] 31 s Normal 26-37 [facility] Comment on above: Performed By: #### C RT #### [facility] ([id number]) [address], [address] [address] BLOOD CULTUREon 01-14-2024 Bacteria identified Aer cx Nom (Bld) SPECIMEN NOTES SUBOPTIMAL VOLUME OF BLOOD COLLECTED, RESULTS MAY BE AFFECTED. CULTURE RESULTS NO GROWTH 5 DAYS Normal [facility] Comment on above: Performed By: #### 1 7928-3 #### [facility] ([id number]) [address], [address] [address] Bacteria identified Aer cx Nom (Bld) SPECIMEN NOTES SUBOPTIMAL VOLUME OF BLOOD COLLECTED, RESULTS MAY BE AFFECTED. CULTURE RESULTS NO GROWTH 5 DAYS Normal [facility] Comment on above: Performed By: #### C RT #### [facility] ([id number]) [address], [address] [address] CBC AND AUTO DIFFon 01-14-20 24 ABSOLUTE BASOPHIL 0.0 X10E9/L Normal 0.0-0.2 [facility] Comment on above: Performed By: #### C BCA, 53185-4, PINR, 42911-6, CMP #### [facility] ([id number]) [address], [address] [place] [address] ABSOLUTE NEUTROPHIL 8.2 X10E9/L High 1.5-6.6 [facility] Comment on above: Performed By: #### C BCA, 18298-6, PINR, 32071-1, CMP #### [facility] ([id number]) [address], [address] [place] [address] Basophils/100 WBC (Bld) 0.2 % Normal [facility] Comment on above: Performed By: #### C BCA, 53495-7, PINR, 23553-0, CMP #### [facility] ([id number]) [address], [address] [place] [address] Eosinophils (Bld) [#/Vol] 0.1 10*3/uL Normal 0.0-0.4 [facility] Comment on above: Performed By: #### C BCA, 48278-9, PINR, 14985-2, CMP #### [facility] ([id number]) [address], [address] [place] [address] Eosinophils/100 WBC (Bld) 0.9 % Normal [facility] Comment on above: Performed By: #### C BCA, 70018-7, PINR, 66644-8, CMP #### [facility] ([id number]) [address], [address] [place] [address] Erythrocyte distribution width (RBC) [Ratio] 15.2 % High 11.5-15.0 [facility] Comment on above: Performed By: #### C BCA, 87318-5, PINR, 16758-5, CMP #### [facility] ([id number]) [address], [address] [place] [address] Hematocrit (Bld) [Volume fraction] 31.0 % Low 35-47 [facility] Comment on above: Performed By: #### C BCA, 89069-2, PINR, 99730-0, CMP #### [facility] ([id number]) [address], [address] [place] [address] Hemoglobin (Bld) [Mass/Vol] 10.3 g/dL Low 11.7-15.5 [facility] Comment on above: Performed By: #### Chantal BISHOP, 92099-1, PINR, 57378-6, CMP #### [facility] ([id number]) [address], [address] [place] [address] Lymphocytes (Bld) [#/Vol] 1.3 10*3/uL Normal 1.0-3.5 [facility] Comment on above: Performed By: #### Chantal BISHOP, 02755-5, PINR, 67089-9, CMP #### [facility] ([id number]) [address], [address] [place] [address] Lymphocytes/100 WBC (Bld) 12.6 % Normal [facility] Comment on above: Performed By: #### Chantal BISHOP, 82063-5, PINR, 53953-7, CMP #### [facility] ([id number]) [address], [address] [place] [address] MCH (RBC) [Entitic mass] 27.9 pg Normal 27-34 [facility] Comment on above: Performed By: #### Chantal BCA, 44910-5, PINR, 47263-2, CMP #### [facility] ([id number]) [address], [address] [place] [address] MCHC (RBC) [Mass/Vol] 33.2 g/dL Normal 32-36 [facility] Comment on above: Performed By: #### Chantal BCA, 44634-3, PINR, 96338-5, CMP #### [facility] ([id number]) [address], [address] [place] [address] MCV (RBC) [Entitic vol] 84 fL Normal 80-100 [facility] Comment on above: Performed By: #### Chantal BISHOP, 42499-4, PINR, 45197-4, CMP #### [facility] ([id number]) [address], [address] [place] [address] Monocytes (Bld) [#/Vol] 0.9 10*3/uL Normal 0-0.9 [facility] Comment on above: Performed By: #### Chantal BCA, 60181-1, PINR, 77536-4, CMP #### [facility] ([id number]) [address], [address] [place] [address] Monocytes/100 WBC (Bld) 8.9 % Normal [facility] Comment on above: Performed By: #### Chantal BISHOP, 08213-6, PINR, 91801-4, CMP #### [facility] ([id number]) [address], [address] [place] [address] Neutrophils/100 WBC (Bld) 77.4 % Normal [facility] Comment on above: Performed By: #### Chantal BCA, 04443-7, PINR, 61791-5, CMP #### [facility] ([id number]) [address], [address] [place] [address] Platelet mean volume (Bld) [Entitic vol] 8.3 fL Normal 7-12 [facility] Comment on above: Performed By: #### Chantal BCA, 87764-9, PINR, 74567-5, CMP #### [facility] ([id number]) [address], [address] [place] [address] Platelets (Bld) [#/Vol] 250 10*3/uL Normal 150-450 [facility] Comment on above: Performed By: #### Chantal BCA, 55698-0, PINR, 45896-1, CMP #### [facility] ([id number]) [address], [address] [place] [address] RBC COUNT 3.69 X10E12/L Low 3.80-5.20 [facility] Comment on above: Performed By: #### C BCA, 92383-8, PINR, 62963-9, CMP #### [facility] ([id number]) [address], [address] [place] [address] WBC (Bld) [#/Vol] 10.5 10*3/uL Normal 4.0-11.0 [facility] Comment on above: Performed By: #### C BCA, 88158-7, PINR, 08463-1, CMP #### [facility] ([id number]) [address], [address] [place] [address] COMPREHENSIVE METABOLIC PANE Blaine 01-14-2024 Albumin [Mass/Vol] 3.2 g/dL Normal 3.2-5.3 [facility] Comment on above: Performed By: #### C BCA, 68676-1, PINR, 03374-7, CMP #### [facility] ([id number]) [address], [address] [place] [address] ALP [Catalytic activity/Vol] 103 U/L Normal 39-130 [facility] Comment on above: Performed By: #### C BCA, 05418-7, PINR, 95038-8, CMP #### [facility] ([id number]) [address], [address] [place] [address] ALT [Catalytic activity/Vol] 25 U/L Normal 0-31 [facility] Comment on above: Performed By: #### C BCA, 50122-8, PINR, 84410-1, CMP #### [facility] ([id number]) [address], [address] [place] [address] Anion gap [Moles/Vol] 9 mmol/L Normal 5-15 [facility] Comment on above: Performed By: #### C BCA, 47929-9, PINR, 88957-5, CMP #### [facility] ([id number]) [address], [address] [place] [address] AST [Catalytic activity/Vol] 26 U/L Normal 0-41 [facility] Comment on above: Performed By: #### C BCA, 98900-5, PINR, 53189-0, CMP #### [facility] ([id number]) [address], [address] [place] [address] Bilirubin [Mass/Vol] 0.6 mg/dL Normal 0.3-1.2 [facility] Comment on above: Performed By: #### C BCA, 36065-4, PINR, 02344-3, CMP #### [facility] ([id number]) [address], [address] [place] [address] Calcium [Mass/Vol] 8.2 mg/dL Low 8.5-10.5 [facility] Comment on above: Performed By: #### C BCA, 64625-1, PINR, 42567-3, CMP #### [facility] ([id number]) [address], [address] [place] [address] Chloride [Moles/Vol] 102 mmol/L Normal 98-109 [facility] Comment on above: Performed By: #### C BCA, 37482-0, PINR, 05191-2, CMP #### [facility] ([id number]) [address], [address] [place] [address] CO2 [Moles/Vol] 28 mmol/L Normal 22-32 [facility] Comment on above: Performed By: #### C BCA, 59513-6, PINR, 48057-9, CMP #### [facility] ([id number]) [address], [address] [place] [address] Creatinine [Mass/Vol] 0.48 mg/dL Normal 0.40-1.00 [facility] Comment on above: Result Comment: METH OD TRACEABLE TO IDMS STANDARD Performed By: #### C BCA, 06025-9, PINR, 23749-1, CMP #### [facility] ([id number]) [address], [address] [place] [address] eGFR (CKD-EPI) NON-RACE DEPENDENT >90 Normal >59 [facility] Comment on above: Result Comment: Reported eGFR is based on the CKD-EPI 2020 equation that does not use a race coefficient. Performed By: #### C BCA, 44674-0, PINR, 32584-0, CMP #### [facility] ([id number]) [address], [address] [place] [address] Glucose [Mass/Vol] 92 mg/dL Normal 65-99 [facility] Comment on above: Performed By: #### C BCA, 03610-9, PINR, 47961-3, CMP #### [facility] ([id number]) [address], [address] [place] [address] Potassium [Moles/Vol] 3.2 mmol/L Low 3.5-5.0 [facility] Comment on above: Performed By: #### C BCA, 79297-7, PINR, 64442-3, CMP #### [facility] ([id number]) [address], [address] [place] [address] Protein [Mass/Vol] 6.6 g/dL Normal 6.0-8.0 [facility] Comment on above: Performed By: #### C BCA, 13702-6, PINR, 13646-0, CMP #### [facility] ([id number]) [address], [address] [place] [address] Sodium [Moles/Vol] 139 mmol/L Normal 134-146 [facility] Comment on above: Performed By: #### C BCA, 39200-9, PINR, 26077-3, CMP #### [facility] ([id number]) [address], [address] [place] [address] Urea nitrogen [Mass/Vol] 3 mg/dL Low 5-23 [facility] Comment on above: Performed By: #### C BCA, 77977-7, PINR, 66477-5, CMP #### [facility] ([id number]) [address], [address] [place] [address] Fibrinogen Coagulation.deriv ed (PPP) [Mass/Vol]on 01-14-2024 FIBRINOGEN 803 mg/dL High 190-480 [facility] Comment on above: Performed By: #### C BCA, 41351-5, PINR, 40451-8, CMP #### [facility] ([id number]) [address], [address] [place] [address] POTASSIUMon 01-14-2024 Potassium [Moles/Vol] 3.9 mmol/L Normal 3.5-5.0 [facility] Comment on above: Performed By: #### 2 823-3 #### [facility] ([id number]) [address], [address] [place] [address] PROTIME AND INRon 01-14-2024 INR Coag (PPP) [Relative time] 1.2 {INR} High 0.8-1.1 [facility] Comment on above: Performed By: #### C BCA, 12152-4, PINR, 23399-7, CMP #### [facility] ([id number]) [address], [address] [place] [address] PT Coag (PPP) [Time] 14.3 s High 9.8-13.2 [facility] Comment on above: Performed By: #### C BCA, 96658-5, PINR, 30500-0, CMP #### [facility] ([id number]) [address], [address] [place] [address] aPTT Coag (PPP) [Time]on aPTT Coag (Bld) [Time] 30 s Normal 26-37 [facility] Comment on above: Performed By: #### C BCA, 82472-2, PINR, 11198-9, CMP #### [facility] ([id number]) [address], [address] [place] [address] APTTon 01-13-2024 ACTIVATED PARTIAL THROMBOPLASTIN TIME IN PPP BY COAGULATION ASSAY 37.7 Seconds High 25.0-35.0 [facility] Comment on above: Result Comment: Clin ical significance of the APTT is questionable in the presence of heparin. Performed By: #### L [id number] #### [facility] ([facility]) [address] [place] [address] BLOOD CULTUREon 01-13-2024 Bacteria identified Cx Nom (Bld) No growth at 5 days Normal [facility] Comment on above: Performed By: #### L [id number] #### [facility] (BEAKER) [address] [place] [address] CBC WITH AUTO DIFFERENTIALon 01-13-2024 Basophils (Bld) [#/Vol] 0.03 10*3/uL Normal 0.00-0.20 [facility] Comment on above: Performed By: #### L [id number] #### [facility] ([facility]AK[facility]) [address] [place] [address] Basophils/100 WBC (Bld) 0.2 % Normal 0.0-1.0 [facility] Comment on above: Performed By: #### L [id number] #### [facility] (BEAKER) [address] [place] [address] Eosinophils (Bld) [#/Vol] 0.05 10*3/uL Normal 0.00-0.50 [facility] Comment on above: Performed By: #### L [id number] #### [facility] (BEAKER) [address] [place] [address] Eosinophils/100 WBC (Bld) 0.4 % Normal 0.0-6.0 [facility] Comment on above: Performed By: #### L [id number] #### [facility] [address] [place] [address] Erythrocyte distribution width (RBC) [Ratio] 14.0 % Normal 11.5-15.0 [facility] Comment on above: Performed By: #### L [id number] #### [facility] ([facility]) [address] [place] [address] ERYTHROCYTE MEAN CORPUSCULAR HEMOGLOBIN CONCENTRATION (G/DL) BY AUTOMATED 32.9 g/dL Normal 32.0-35.0 [facility] Comment on above: Performed By: #### L [id number] #### [facility] ([facility]) [address] [place] [address] Hematocrit (Bld) [Volume fraction] 32.8 % Low 36.0-48.0 [facility] Comment on above: Performed By: #### L [id number] #### [facility] (BEAKER) [address] [place] [address] Hemoglobin (Bld) [Mass/Vol] 10.8 g/dL Low 12.0-15.0 [facility] Comment on above: Performed By: #### L [id number] #### [facility] (BEAKER) [address] [place] [address] Immature granulocytes (Bld) [#/Vol] 0.05 10*3/uL Normal 0.00-0.20 [facility] Comment on above: Performed By: #### L [id number] #### [facility] (BEAKER) [address] [place] [address] Immature granulocytes/100 WBC (Bld) 0.4 % Normal 0.0-1.0 [facility] Comment on above: Performed By: #### L [id number] #### [facility] (BEAKER) [address] [place] [address] Lymphocytes (Bld) [#/Vol] 1.38 10*3/uL Normal 1.20-4.00 [facility] Comment on above: Performed By: #### L [id number] #### [facility] ([facility]) [address] [place] [address] Lymphocytes/100 WBC (Bld) 10.9 % Low 20.0-45.0 [facility] Comment on above: Performed By: #### L [id number] #### [facility] ([facility]) [address] [place] [address] MCH (RBC) [Entitic mass] 27.6 pg Normal 27.0-33.0 [facility] Comment on above: Performed By: #### L [id number] #### [facility] ([facility]) [address] [place] [address] MCV (RBC) [Entitic vol] 83.7 fL Normal 82.0-98.0 [facility] Comment on above: Performed By: #### L [id number] #### [facility] ([facility]) [address] [place] [address] Monocytes (Bld) [#/Vol] 0.98 10*3/uL Normal 0.10-1.00 [facility] Comment on above: Performed By: #### L [id number] #### [facility] ([facility]) [address] [place] [address] Monocytes/100 WBC (Bld) 7.8 % Normal 5.0-12.0 [facility] Comment on above: Performed By: #### L [id number] #### [facility] ([facility]) [address] [place] [address] Neutrophils (Bld) [#/Vol] 10.15 10*3/uL High 1.60-7.60 [facility] Comment on above: Performed By: #### L [id number] #### [facility] (BEAKER) [address] [place] [address] Neutrophils/100 WBC (Bld) 80.3 % High 40.0-72.0 [facility] Comment on above: Performed By: #### L [id number] #### [facility] ([facility]) [address] [place] [address] NRBC (PER 100 WBCS) BY AUTOMATED COUNT 0.0 % Normal 0 [facility] Comment on above: Performed By: #### L [id number] #### [facility] ([facility]) [address] [place] [address] PLATELETS (10*3/UL) IN BLOOD AUTOMATED COUNT 297 10*3/uL Normal 150-400 [facility] Comment on above: Performed By: #### L [id number] #### [facility] ([facility]) [address] [place] [address] RBC (Bld) [#/Vol] 3.92 10*6/uL Normal 3.80-5.00 [facility] Comment on above: Performed By: #### L [id number] #### [facility] ([facility]) [address] [place] [address] WBC (Bld) [#/Vol] 12.64 10*3/uL High 4.00-10.60 [facility] Comment on above: Performed By: #### L [id number] #### [facility] ([facility]) [address] [place] [address] COMPREHENSIVE METABOLIC PANE Blaine 01-13-2024 Albumin [Mass/Vol] 3.7 g/dL Normal 3.5-5.7 [facility] Comment on above: Performed By: #### L [id number] #### [facility] ([facility]) [address] [place] [address] ALP [Catalytic activity/Vol] 115 U/L High 34-104 [facility] Comment on above: Performed By: #### L [id number] #### [facility] [address] [place] [address] ALT [Catalytic activity/Vol] 30 U/L Normal 7-52 [facility] Comment on above: Performed By: #### L [id number] #### [facility] (BEAK[facility]) [address] [place] [address] Anion gap [Moles/Vol] 13 mmol/L Normal 7-20 [facility] Comment on above: Performed By: #### L [id number] #### [facility] (BEAKER) [address] [place] [address] AST [Catalytic activity/Vol] 30 U/L Normal 13-39 [facility] Comment on above: Performed By: #### L [id number] #### [facility] ([facility]) [address] [place] [address] Bilirubin [Mass/Vol] 0.6 mg/dL Normal 0.3-1.0 [facility] Comment on above: Performed By: #### L [id number] #### [facility] ([facility]) [address] [place] [address] Calcium [Mass/Vol] 8.8 mg/dL Normal 8.6-10.3 [facility] Comment on above: Performed By: #### L [id number] #### [facility] ([facility]) [address] [place] [address] Chloride [Moles/Vol] 94 mmol/L Low 98-107 [facility] Comment on above: Performed By: #### L [id number] #### [facility] (BEAKER) [address] [place] [address] CO2 [Moles/Vol] 32 mmol/L High 21-31 [facility] Comment on above: Performed By: #### L [id number] #### [facility] ([facility]AKER) [address] [place] [address] Creatinine [Mass/Vol] 0.69 mg/dL Normal 0.60-1.20 [facility] Comment on above: Performed By: #### L [id number] #### [facility] ([facility]AKER) [address] [place] [address] GLOMERULAR FILTRATION RATE ML/MIN/1.73 SQ M.PREDICTED 121.2 mL/min/1.73m*2 Normal >60.0 [facility] Comment on above: Result Comment: [facility]???s estimated glomerular filtration rate (eGFR) will no [...] individuals. Performed By: #### L [id number] #### [facility] ([facility]) [address] [place] [address] Glucose [Mass/Vol] 77 mg/dL Normal 70-100 [facility] Comment on above: Performed By: #### L [id number] #### [facility] ([facility]) [address] [place] [address] Potassium [Moles/Vol] 2.7 mmol/L Invalid Interpretation Code 3.5-5.1 [facility] Comment on above: Performed By: #### L [id number] #### [facility] ([facility]) [address] [place] [address] Protein [Mass/Vol] 7.9 g/dL Normal 6.0-8.3 [facility] Comment on above: Performed By: #### L [id number] #### [facility] ([facility]) [address] [place] [address] Sodium [Moles/Vol] 136 mmol/L Normal 136-145 [facility] Comment on above: Performed By: #### L [id number] #### [facility] ([facility]) [address] [place] [address] Urea nitrogen [Mass/Vol] 9 mg/dL Normal 7-25 [facility] Comment on above: Performed By: #### L [id number] #### [facility] (BEAKER) [address] [place] [address] UREA NITROGEN/CREATININE (MASS RATIO) IN SER/PLAS 13.[address] [facility] Comment on above: Performed By: #### L [id number] #### [facility] ([facility]) [address] [place] [address] CREATININEon 01-13-2024 Creatinine [Mass/Vol] 0.53 mg/dL Normal 0.40-1.00 [facility] Comment on above: Result Comment: METH OD TRACEABLE TO IDMS STANDARD Performed By: #### C RT #### [facility] ([id number]) [address] [place] [address] eGFR (CKD-EPI) NON-RACE DEPENDENT >90 Normal >59 [facility] Comment on above: Result Comment: Reported eGFR is based on the CKD-EPI 2020 equation that does not use a race coefficient. Performed By: #### C RT #### [facility] ([id number]) [address] [place] [address] CT ABDOMEN PELVIS W IV CONTR Marichuy [...] achievable Electronically signed: Arsalan Bales MD. [facility] CTA CHEST W IV CONTRASTon CTA [...] achievable Electronically signed: Arsalan Bales MD. 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 Pt is also is having some chest pain that has been on and off. She stated this is the worse that she has had it. [facility] EDPROVon 01-13-2024 EDPROV HPI Chief Complaint Patient presents with Chest Pain Post-op Problem Pt is a 28yo F who states she had a total hysterectomy on 11/20/23 and has been having complications with increasing pain since. 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 Linn at [facility], he accepted pt for transfer. [BM] ED Course User Index [BM] Divine Coleman NP Diagnoses as of 01/14/242229 Pelvic abscess in female Sepsis without acute organ dysfunction, due to unspecified organism ([facility]) Medical Decision Making Attestion Divine Coleman NP 01/14/242230 Normal [facility] LACTIC ACID WITH 4 HOUR REFL EXon 01-13-2024 LACTATE (MMOL/L) IN SER/PLAS 1.3 mmol/L Normal 0.5-2.2 [facility] Comment on above: Performed By: #### L [id number] #### [facility] (AKER) [address] [place] [address] MAGNESIUMon 01-13-2024 Magnesium [Mass/Vol] 2.5 mg/dL Normal 1.9-2.7 [facility] Comment on above: Performed By: #### L [id number] #### [facility] (AKER) [address] [place] [address] POC CHEM7 W/ HCTon 4 Chloride [Moles/Vol] 99 mmol/L Normal 98-109 [facility] Comment on above: Performed By: #### I 8XCA #### [facility] ([id number]) [address] [place] [address] CO2 [Moles/Vol] 27 mmol/L Normal 22-32 [facility] Comment on above: Performed By: #### I 8XCA #### [facility] ([id number]) [address] [place] [address] Creatinine [Mass/Vol] 0.6 mg/dL Normal 0.4-1.0 [facility] Comment on above: Result Comment: METH OD TRACEABLE TO IDMS STANDARD Performed By: #### I 8XCA #### [facility] ([id number]) [address] [place] [address] eGFR (CKD-EPI) NON-RACE DEPENDENT >90 Normal >59 [facility] Comment on above: Result Comment: Reported eGFR is based on the CKD-EPI 2020 equation that does not use a race coefficient. Performed By: #### I 8XCA #### [facility] ([id number]) [address] [place] [address] Glucose [Mass/Vol] 98 mg/dL Normal 65-99 [facility] Comment on above: Performed By: #### I 8XCA #### [facility] ([id number]) [address] [place] [address] Hematocrit (Bld) [Volume fraction] 29 % Low 35-47 [facility] Comment on above: Performed By: #### I 8XCA #### [facility] ([id number]) [address] [place] [address] PORTABLE BUN <6 Low 6-23 [facility] Comment on above: Performed By: #### I 8XCA #### [facility] ([id number]) [address] [place] [address] Potassium [Moles/Vol] 2.9 mmol/L Low 3.5-5.0 [facility] Comment on above: Performed By: #### I 8XCA #### [facility] ([id number]) [address] [place] [address] Sodium [Moles/Vol] 138 mmol/L Normal 134-146 [facility] Comment on above: Performed By: #### I 8XCA #### [facility] ([id number]) [address] [place] [address] POTASSIUMon 01-13-2024 Potassium [Moles/Vol] 3.1 mmol/L Low 3.5-5.0 [facility] Comment on above: Performed By: #### 2 823-3 #### [facility] ([id number]) [address] [place] [address] PROTIME-INRon 01-13-2024 INR IN PPP BY COAGULATION ASSAY 1.12 High 0.90-1.10 [facility] Comment on above: Result Comment: ACCC P [...] 1995;[id number]. Performed By: #### L [id number] #### [facility] (BEAKER) [address] [place] [address] PROTHROMBIN TIME (PT) IN PPP BY COAGULATION ASSAY 14.4 Seconds Normal 12.3-14.8 [facility] Comment on above: Performed By: #### L [id number] #### [facility] (BEAKER) [address] [place] [address] TROPONIN Ion 01-13-2024 Troponin I.cardiac [Mass/Vol] 0.02 ng/mL Normal 0.00-0.04 [facility] Comment on above: Performed By: #### L [id number] #### [facility] ([facility] [address] [place] [address] URINALYSIS MICROSCOPIC WITH REFLEX CULTUREon 01-13-2024 CASTS IN URINE Normal [facility] Comment on above: Performed By: #### L [id number] #### [facility] ([facility] [address] [place] [address] CRYSTALS IN URINE Normal [facility] Comment on above: Performed By: #### L [id number] #### [facility] ([facility]) [address] [place] [address] MUCUS (#/HPF) IN URINE SEDIMENT Many Abnormal None Seen, Occasional, Few [facility] Comment on above: Performed By: #### L [id number] #### [facility] ([facility]) [address] [place] [address] OTHER MICROSCOPIC ELEMENTS Normal [facility] Comment on above: Performed By: #### L [id number] #### [facility] ([facility]) [address] [place] [address] RBC (#/HPF) IN URINE SEDIMENT 6-[address] [facility] Comment on above: Performed By: #### L [id number] #### [facility] ([facility]) [address] [place] [address] SQUAMOUS EPITHELIAL CELLS (#/HPF) IN URINE SEDIMENT Moderate Abnormal None Seen, Occasional [facility] Comment on above: Performed By: #### L [id number] #### [facility] [facility] [address] [place] [address] WBC (LEUKOCYTE) (#/HPF) IN URINE SEDIMENT 11-[address] [facility] Comment on above: Performed By: #### L [id number] #### [facility] ([facility]) [address] [place] [address] URINALYSIS WITH REFLEX CULTU REon 01-13-2024 BILIRUBIN, TOTAL PRESENCE IN URINE Negative Normal Negative [facility] Comment on above: Performed By: #### L [id number] #### [facility] ([facility] [address] [place] [address] Clarity (U) Slightly Cloudy [facility]: Performed By: #### L [id number] #### [facility] ([facility]) [address] [place] [address] Color (U) Cassidy Abnormal Yellow [facility] Comment on above: Performed By: #### L [id number] #### [facility] ([facility]) [address] [place] [address] Glucose (U) [Mass/Vol] Negative Normal Negative [facility] Comment on above: Performed By: #### L [id number] #### [facility] ([facility]) [address] [place] [address] HEMOGLOBIN PRESENCE IN URINE Small Abnormal Negative [facility] Comment on above: Performed By: #### L [id number] #### [facility] ([facility]) [address] [place] [address] Ketones Ql (U) Negative Normal Negative [facility] Comment on above: Performed By: #### L [id number] #### [facility] ([facility]) [address] [place] [address] LEUKOCYTE ESTERASE PRESENCE IN URINE BY TEST STRIP Small Abnormal Negative [facility] Comment on above: Performed By: #### L [id number] #### [facility] ([facility]) [address] [place] [address] NITRITE PRESENCE IN URINE Negative Normal Negative [facility] Comment on above: Performed By: #### L [id number] #### [facility] ([facility]) [address] [place] [address] pH (U) 5.0 [pH] Normal 5.0-8.0 [facility] Comment on above: Performed By: #### L [id number] #### [facility] ([facility]) [address] [place] [address] Protein (U) [Mass/Vol] 30 mg/dL Abnormal Negative [facility] Comment on above: Performed By: #### L [id number] #### [facility] ([facility]) [address] [place] [address] Specific gravity (U) [Rel density] 1.020 Normal 1.015-1.020 [facility] Comment on above: Performed By: #### L [id number] #### [facility] ([facility]) [address] [place] [address] UROBILINOGEN (EU/DL) IN URINE 4.0 EU/dL Abnormal Negative [facility] Comment on above: Performed By: #### L [id number] #### [facility] ([facility]) [address] [place] [address] Activated partial thrombopla stin time (aPTT) in platelet poor plasma by coagulation aOrdered By: Nikhil Quiñones on 01-08-2024 aPTT Coag (PPP) [Time] 35.0 s 25.1-36.5 [facility] Comment on above: A hematocrit value g reater than 55% may lead to inaccurate results in coagulation testing. Patients having hematocrit values >55% require a special collection tube for coagulation studies. Please contact the laboratory at [phone] for redraw instructions. Alanine aminotransferase [En zymatic activity/volume] in Serum or PlasmaOrdered By: Nikhil Quiñones on 01-08-2024 ALT [Catalytic activity/Vol] 13 U/L Normal 7-52 [facility] Comment on above: Performed By: #### U HCG, ADDONUAPLUS #### [facility] [address] Albumin [Mass/volume] in Ser um or Plasma by Bromocresol green (BCG) dye binding methoOrdered By: Nikhil Quiñones on 01-08-2024 Albumin BCG dye [Mass/Vol] 4.4 g/dL 3.5-5.7 [facility] Alkaline phosphatase [Enzyma tic activity/volume] in Serum or PlasmaOrdered By: Nikhil Quiñones on 01-08-2024 ALP [Catalytic activity/Vol] 66 U/L Normal 34-104 [facility] Comment on above: Performed By: #### U HCG, ADDONUAPLUS #### [address] Aspartate aminotransferase [ Enzymatic activity/volume] in Serum or PlasmaOrdered By: Nikhil Quiñones on 01-08-2024 AST [Catalytic activity/Vol] 16 U/L Normal 13-39 [facility] Comment on above: Performed By: #### U HCG, ADDONUAPLUS #### [address] Automated basophil %Ordered By: Nikhil Quiñones on 01-08-2024 Basophils/100 WBC (Bld) 0.4 % Normal . [facility] Comment on above: Performed By: #### U HCG, ADDONUAPLUS #### [address] Automated basophil countOrde red By: Nikhil Quiñones on 01-08-2024 Basophils (Bld) [#/Vol] 0.0 10*3/uL Normal 0.0-0.2 [facility] Comment on above: Result Comment: PERF ORMED BY: [place] [address] PATHOLOGIST INSTALLATION DRAFTER LARISSA GUERRA M.D. Performed By: #### U HCG, ADDONUAPLUS #### [address] Automated blood monocyte cou ntOrdered By: Nikhil Quiñones on 01-08-2024 Monocytes (Bld) [#/Vol] 0.6 10*3/uL Normal 0.0-0.8 [facility] Comment on above: Performed By: #### U HCG, ADDONUAPLUS #### [address] Automated eosinophil %Ordere d By: Nikhil Quiñones on 01-08-2024 Eosinophils/100 WBC (Bld) 0.1 % Normal . [facility] Comment on above: Performed By: #### U HCG, ADDONUAPLUS #### [address] Automated eosinophil countOr dered By: Nikhil Quiñones on 01-08-2024 Eosinophils (Bld) [#/Vol] 0.0 10*3/uL Normal 0.0-0.45 [facility] Comment on above: Performed By: #### U HCG, ADDONUAPLUS #### [address] Automated monocyte %Ordered By: Nikhil Quiñones on 01-08-2024 Monocytes/100 WBC (Bld) 8.0 % Normal . [facility] Comment on above: Performed By: #### U HCG, ADDONUAPLUS #### [address] Automated neutrophil %Ordere d By: Nikhil Quiñones on 01-08-2024 Neutrophils/100 WBC (Bld) 76.6 % Normal . [facility] Comment on above: Performed By: #### U HCG, ADDONUAPLUS #### [address] Basic Metabolic Panelon 12-18 Creatinine Clr Calc Pharmacy 127.27 Normal [facility] Comment on above: Performed By: #### U HCG, ADDONUAPLUS #### [address] GFR/1.73 sq M.predicted MDRD (S/P/Bld) [Vol rate/Area] mL/min/{1.73_m2} Normal [facility] Comment on above: Performed By: #### U HCG, ADDONUAPLUS #### [address] Bilirubin Test strip Ql (U)O rdered By: Nikhil Quiñones on 01-08-2024 Bilirubin Ql (U) Negative Negative [facility] Bilirubin.direct [Mass/volum e] in Serum or PlasmaOrdered By: Nikhil Quiñones on 01-08-2024 Bilirubin.direct [Mass/Vol] 0.00 mg/dL Low 0.03-0.18 [facility] Comment on above: If the DBIL is less than 0.1, IBIL is not able to becalculated. Bilirubin.total [Mass/volume ] in Serum or PlasmaOrdered By: Nikhil Quiñones on 01-08-2024 Bilirubin [Mass/Vol] 0.3 mg/dL Normal 0.3-1.0 [facility] Comment on above: Performed By: #### U HCG, ADDONUAPLUS #### [facility] [address] Blood Cultureon 01-08-2024 Bacteria identified Cx Nom (Bld) NO GROWTH 5 DAYS PERFORMED BY: [facility] [address] [facility] [place] [address] PATHOLOGIST INSTALLATION DRAFTER LARISSA GUERRA M.D. Normal [facility] Comment on above: Performed By: #### U HCG, ADDONUAPLUS #### [facility] [address] COVID CepheidOrdered By: Joselito Quiñones on 01-08-2024 SARS-CoV-2 (COVID-19) Ab IA Ql Negative Negative [facility] Comment on above: This is a duplicate Cepheid Xpert Xpress CoV-2/Flu/RSV Plus RNA by RT-PCR result to be used for statistical tracking purpose only. SARS-CoV-2 (COVID-19) RNA MARICEL+probe Ql (Unsp spec) [facility] COVID-19 / Flu A/B / RSV PCR [...] or Cepheid Disclaimer revoked sooner. PERFORMED BY: [place] [address] PATHOLOGIST INSTALLATION DRAFTER LARISSA GUERRA M.D. Normal [facility] Comment on above: Performed By: #### U LO, GIULIANA, ADDONUAPLUS #### [address] abdomen pelvis w kaz CT abdomen pelvis w [facility] [address] [place] [address] CT Scan Report Signed Patient: Barbra Claros MR#: [id number] : 1995 Acct:[id number] Age/Sex: 28 / F ADM Date: 01/08/24 Loc: ER Room: Type: [facility] ER Attending Dr: Copies to: Nikhil [...] abscess. Impression dictated by: Leonard Maria Jr., D.O.01/08/2024 2:50 PM Dictation Location: [place] [address] Transcribed By: [facility] 01/08/24 1450 Dictated By: Leonard Maria Jr, DO 01/08/24 1427 Signed By: 01/08/24 1450 Normal [facility] Calcium [Mass/volume] in Ser um or PlasmaOrdered By: Nikhil Quiñones on 01-08-2024 Calcium [Mass/Vol] 9.5 mg/dL Normal 8.6-10.3 [facility] Comment on above: Performed By: #### U HCG, ADDONUAPLUS #### [facility] [address] Carbon dioxide, total [Moles /volume] in Serum or PlasmaOrdered By: Nikhil Quiñones on 01-08-2024 CO2 [Moles/Vol] 27.6 mmol/L Normal 21.0-31.0 [facility] Comment on above: Performed By: #### U HCG, ADDONUAPLUS #### [place] [address] [place] Cepheid COVID PCR Negativeon 01-08-2024 SARS-CoV-2 (COVID-19) RNA MARICEL+probe Ql (Unsp spec) Negative Normal Negative [facility] Comment on above: Result Comment: This is a duplicate Cepheid Xpert Xpress CoV-2/Flu/RSV Plus RNA by RT-PCR result to be used for statistical tracking purpose only. PERFORMED BY: [place] [address] PATHOLOGIST INSTALLATION DRAFTER LARISSA GUERRA M.D. Performed By: #### U HCG, URDS, ADDONUAPLUS #### [address] Chlamydia/GC Amplificationon 01-08-2024 Chlamydia Trachomotis, MARICEL Negative Normal Negative [facility] Comment on above: Order Comment: SOURC E OF SPECIMEN: Genital Performed By: #### C UU #### [address] Neisseria Gonorrhoeae, MARICEL Negative Normal Negative [facility] Comment on above: Order Comment: SOURC E OF SPECIMEN: Genital Result Comment: Perf ormed at: =G - [facility] [address] [id number] Wheel Loader Operator: Katherine Coleman MD, Phone: [phone] PERFORMED BY: [place] [address] PATHOLOGIST INSTALLATION DRAFTER LARISSA GUERRA M.D. Performed By: #### C UU #### [place] [address] [place] Chloride [Moles/volume] in S karla or PlasmaOrdered By: Nikhil Quiñones on 01-08-2024 Chloride [Moles/Vol] 102 mmol/L Normal 98-107 [facility] Comment on above: Performed By: #### U HCG, ADDONUAPLUS #### [place] [address] [place] Color of Urine by AutoOrdere d By: Nikhil Quiñones on 01-08-2024 Color (U) Yellow Normal Yellow [facility] Comment on above: Order Comment: Name Collection Type:: Clean-Voided Midstream Performed By: #### C UU #### [address] Complete Blood Count Auto Di ffon 01-08-2024 Mean Corpuscular HGB Conc 33.5 g/dL Normal 32.0-35.0 [facility] Comment on above: Performed By: #### U HCG, ADDONUAPLUS #### [address] Monocytes/100 WBC (Bld) 21.47 % High 0.00-20.00 [facility] Comment on above: Result Comment: For adults in ED, MDW > 20.0 may be associated with a higher risk of sepsis during the first 12 hrs of hospital admission Performed By: #### U HCG, ADDONUAPLUS #### [address] NRBC% 0.1 /100{WBC} Normal 0-0.5 [facility] Comment on above: Performed By: #### U HCG, ADDONUAPLUS #### [address] Creatinine [Mass/volume] in Serum or PlasmaOrdered By: Nikhil Quiñones on 01-08-2024 Creatinine [Mass/Vol] 0.63 mg/dL Normal 0.60-1.20 [facility] Comment on above: Performed By: #### U HCG, ADDONUAPLUS #### [address] Erythrocyte distribution wid th [Ratio] by Automated countOrdered By: Nikhil Quiñones on 01-08-2024 Erythrocyte distribution width (RBC) [Ratio] 15.2 % Normal 11.9-15.3 [facility] Comment on above: Performed By: #### U HCG, ADDONUAPLUS #### [place] [address] [place] Erythrocytes [#/volume] in B lood by Automated countOrdered By: Nikhil Quiñones on 01-08-2024 RBC (Bld) [#/Vol] 4.43 10*6/uL Normal 3.60-5.00 [facility] Comment on above: Performed By: #### U HCG, DAWIT #### [place] [id number] [facility] Fungal Smearon 01-08-2024 Fungal Smear Fungus Smear Results No Yeast Like Elements Seen No Fungal Like Elements Seen ---- Trichomonas Screen No Trichomonas Seen Trich Reference Reference range = None Seen PERFORMED BY: [place] [address] PATHOLOGIST INSTALLATION DRAFTER LARISSA GUERRA M.D. Normal [facility] Comment on above: Performed By: #### C UU #### [address] Genital Cultureon 01-08-2024 Genital Culture No More GC Specimen not tested for Neisseria gonorrheae ORGANISM: Anca albicans (O:CANALB) Quantity of Growth Moderate Growth ORGANISM: Streptococcus pyogenes Grp A (O:A) Comments Organism Not Routinely Tested for Susceptibilities Quantity of Growth Moderate Growth ORGANISM: Gardnerella vaginalis (O:GARVAG) Comments Organism Not Routinely Tested for Susceptibilities Quantity of Growth Heavy Growth PERFORMED BY: [place] [address] PATHOLOGIST INSTALLATION DRAFTER LARISSA GUERRA M.D. Normal [facility] Comment on above: Performed By: #### C UU #### [address] Glucose [Mass/volume] in Ser um or PlasmaOrdered By: Nikhil Quiñones on 01-08-2024 Glucose [Mass/Vol] 90 mg/dL Normal 70-100 [facility] Comment on above: ADA recommended refe rence rangeRandom Glucose Reference Range is dependent on time and content of last meal. Glucose of more than 200 mg/dL in a nonstressed, ambulatory subject supports the diagnosis of Diabetes Mellitus. Result Comment: [facility] Glucose Reference Range is dependent on time and content of last meal. Glucose of more than 200 mg/dL in a nonstressed, ambulatory subject supports the diagnosis of Diabetes Mellitus. ADA recommended reference range Performed By: #### U HCG, ADDONUAPLUS #### [address] Hematocrit [Volume Fraction] of Blood by Automated countOrdered By: Nikhil Quiñones on 01-08-2024 Hematocrit (Bld) [Volume fraction] 36.5 % Normal 34.0-46.4 [facility] Comment on above: Performed By: #### U HCG, ADDONUAPLUS #### [address] Hemoglobin [Mass/volume] in BloodOrdered By: Nikhil Quiñones on 01-08-2024 Hemoglobin (Bld) [Mass/Vol] 12.2 g/dL Normal 11.8-15.4 [facility] Comment on above: Performed By: #### U HCG, ADDONUAPLUS #### [address] Hepatic Panelon 01-08-2024 Albumin [Mass/Vol] 4.4 g/dL Normal 3.5-5.7 [facility] Comment on above: Performed By: #### U HCG, ADDONUAPLUS #### [address] Bilirubin,Indirect 0.3 mg/dL Normal [facility] Comment on above: Performed By: #### U HCG, ADDONUAPLUS #### [address] Bilirubin.indirect [Mass/Vol] 0.00 mg/dL Low 0.03-0.18 [facility] Comment on above: Result Comment: If t he DBIL is less than 0.1, IBIL is not able to be calculated. Performed By: #### U HCG, ADDONUAPLUS #### [place] [address] [place] INR in Platelet poor plasma by Coagulation assayOrdered By: Nikhil Quiñones on 01-08-2024 INR Coag (PPP) [Relative time] 1.2 {INR} Normal [facility] Comment on above: INR Therapeutic Rang e [...] valves: 3 - 4.5 Performed By: #### U HCG, ADDONUAPLUS #### [facility] [address] Ketones Auto test strip (U) [Mass/Vol]Ordered By: Nikhil Quiñones on 01-08-2024 Ketones (U) [Mass/Vol] Negative Negative [facility] Lactate [Moles/volume] in Se rum or PlasmaOrdered By: Nikhil Quiñones on 01-08-2024 Lactate [Moles/Vol] 0.6 mmol/L Normal 0.5-2.2 [facility] Comment on above: Result Comment: PERF ORMED BY: [place] [address] PATHOLOGIST INSTALLATION DRAFTER LARISSA GUERRA M.D. Performed By: #### U HCG, ADDONUAPLUS #### [facility] [address] Leukocytes [#/volume] correc [place] for nucleated erythrocytes in Blood by Automated counOrdered By: Nikhil Quiñones on 01-08-2024 WBC corrected for nucl RBC Auto (Bld) [#/Vol] 7.6 10*3/uL 3.8-11.6 [facility] Leukocytes [#/volume] in Blo od by Automated countOrdered By: Nikhil Quiñones on 01-08-2024 WBC (Bld) [#/Vol] 7.6 10*3/uL Normal 3.8-11.6 [facility] Comment on above: Performed By: #### U HCG, ADDONUAPLUS #### [address] Lipase [Enzymatic activity/v olume] in Serum or PlasmaOrdered By: Nikhil Quiñones on 01-08-2024 Lipase [Catalytic activity/Vol] 10.0 U/L Low 11.0-82.0 [facility] Comment on above: Result Comment: PERF ORMED BY: [place] [address] PATHOLOGIST INSTALLATION DRAFTER LARISSA GUERRA M.D. Performed By: #### U HCG, ADDONUAPLUS #### [place] [address] [place] Lymphocytes [#/volume] in Bl ood by Automated countOrdered By: Nikhil Quiñones on 01-08-2024 Lymphocytes (Bld) [#/Vol] 1.1 10*3/uL Normal 1.00-4.8 [facility] Comment on above: Performed By: #### U HCG, ADDONUAPLUS #### [place] [address] [place] Lymphocytes/100 leukocytes i n Blood by Automated countOrdered By: Nikhil Quiñones on 01-08-2024 Lymphocytes/100 WBC (Bld) 14.9 % Normal . [facility] Comment on above: Performed By: #### U HCG, ADDONUAPLUS #### [place] [address] [place] MCH [Entitic mass] by Automa arminda countOrdered By: Nikhil Quiñones on 01-08-2024 MCH (RBC) [Entitic mass] 27.6 pg Normal 24.7-34.3 [facility] Comment on above: Performed By: #### U HCG, ADDONUAPLUS #### [address] MCHC Auto (RBC) [Mass/Vol]Or dered By: Nikhil Quiñones on 01-08-2024 MCHC (RBC) [Mass/Vol] 33.5 g/dL 32.0-35.0 [facility] MCV [Entitic volume] by Auto mated countOrdered By: Nikhil Quiñones on 01-08-2024 MCV (RBC) [Entitic vol] 82.4 fL Normal 80-100 [facility] Comment on above: Performed By: #### U HCG, ADDONUAPLUS #### [facility] [address] Monocyte distribution width [Entitic volume] in Blood by AutomatedOrdered By: Nikhil Quiñones on 01-08-2024 Monocyte distribution width Auto (Bld) [Entitic vol] 21.47 % High 0.00-20.00 [facility] Comment on above: For adults in ED, MD W > 20.0 may be associated with a higher risk of sepsis during the first 12 hrs of hospital admission Neutrophils [#/volume] in Bl ood by Automated countOrdered By: Nikhil Quiñones on 01-08-2024 Neutrophils (Bld) [#/Vol] 5.8 10*3/uL Normal 1.8-7.7 [facility] Comment on above: Performed By: #### U HCG, ADDONUAPLUS #### [facility] [address] [place] [id number] [facility] Nitrite Test strip Ql (U)Ord ered By: Nikhil Quiñones on 01-08-2024 Nitrite Ql (U) Negative Negative [facility] No Panel InformationOrdered By: Nikhil Quiñones on 01-08-2024 Estimated GFR (CKD-EPI) > 60.0 mL/Min [facility] Creatinine Clearance (Chem 127.27 [facility] Nucleated erythrocytes [Pres ence] in Blood by Automated countOrdered By: Nikhil Quiñones on 01-08-2024 Nucleated RBC Auto Ql (Bld) 0.1 /100{WBC} 0-0.5 [facility] Partial Thromboplastin Timeo n 01-08-2024 aPTT Coag (Bld) [Time] 35.0 s Normal 25.1-36.5 [facility] Comment on above: Result Comment: A he matocrit value greater than 55% may lead to inaccurate results in coagulation testing. Patients having hematocrit values >55% require a special collection tube for coagulation studies. Please contact the laboratory at [phone] for redraw instructions. PERFORMED BY: [place] [address] PATHOLOGIST INSTALLATION DRAFTER LARISSA GUERRA M.D. Performed By: #### U HCG, ADDONUAPLUS #### [place] [address] [place] Platelet mean volume [Entiti c volume] in Blood by Automated countOrdered By: Nikhil Quiñones on 01-08-2024 Platelet mean volume (Bld) [Entitic vol] 8.5 fL Normal 6.3-10.7 [facility] Comment on above: Performed By: #### U HCG, ADDONUAPLUS #### [place] [address] [place] Platelets [#/volume] in Bloo d by Automated countOrdered By: Nikhil Quiñones on 01-08-2024 Platelets (Bld) [#/Vol] 228 10*3/uL Normal 150-450 [facility] Comment on above: Performed By: #### U HCG, ADDONUAPLUS #### [place] [address] [place] Potassium [Moles/volume] in Serum or PlasmaOrdered By: Nikhil Quiñones on 01-08-2024 Potassium [Moles/Vol] 3.7 mmol/L Normal 3.5-5.1 [facility] Comment on above: Performed By: #### U HCG, ADDONUAPLUS #### [place] [address] [place] Protein Auto test strip (U) [Mass/Vol]Ordered By: Nikhil Quiñones on 01-08-2024 Protein (U) [Mass/Vol] Negative Negative [facility] Protein [Mass/volume] in Ser um or PlasmaOrdered By: Nikhil Quiñones on 01-08-2024 Protein [Mass/Vol] 7.8 g/dL Normal 6.4-8.9 [facility] Comment on above: Performed By: #### U HCG, ADDONUAPLUS #### [address] Prothrombin time (PT)Ordered By: Nikhil Quiñones on 01-08-2024 PT Coag (PPP) [Time] 13.8 s High 9.0-12.9 [facility] Comment on above: A hematocrit value g reater than 55% may lead to inaccurate results in coagulation testing. Patients having hematocrit values >55% require a special collection tube for coagulation studies. Please contact the laboratory at [phone] for redraw instructions. Result Comment: A he matocrit value greater than 55% may lead to inaccurate results in coagulation testing. Patients having hematocrit values >55% require a special collection tube for coagulation studies. Please contact the laboratory at [phone] for redraw instructions. Performed By: #### U HCG, ADDONUAPLUS #### [address] Serum globulin measurement b y calculation (mass/volume)Ordered By: Nikihl Quiñones on 01-08-2024 Globulin (S) [Mass/Vol] 3.4 g/dL [facility] Comment on above: Performed By: #### U HCG, ADDONUAPLUS #### [address] Serum or plasma albumin/glob ulin mass ratioOrdered By: Nikhil Quiñones on 01-08-2024 Albumin/Globulin [Mass ratio] 1.3 {ratio} [facility] Comment on above: Performed By: #### U HCG, ADDONUAPLUS #### [address] Serum or plasma anion gap de terminationOrdered By: Nikhil Quiñones on 01-08-2024 Anion gap [Moles/Vol] 12.1 mmol/L Normal 6.0-15.0 [facility] Comment on above: Performed By: #### U HCG, ADDONUAPLUS #### [address] Serum or plasma non-glucuron idated bilirubin measurement (mass/volume)Ordered By: Nikhil Quiñones on 01-08-2024 Bilirubin.indirect [Mass/Vol] 0.3 mg/dL [facility] Sodium [Moles/volume] in Ser um or PlasmaOrdered By: Nikhil Quiñones on 01-08-2024 Sodium [Moles/Vol] 138 mmol/L Normal 136-145 [facility] Comment on above: Performed By: #### U HCG, ADDONUAPLUS #### [facility] [address] Specific gravity Auto test s trip (U) [Rel density]Ordered By: Nikhil Quiñones on 01-08-2024 Specific gravity (U) [Rel density] 1.013 1.001-1.030 [facility] Trichomonas vaginalis detect ion by wet preparationOrdered By: Nikhil Quiñones on 01-08-2024 T. vaginalis Wet prep Ql (Unsp spec) [facility] Urea nitrogen [Mass/volume] in Serum or PlasmaOrdered By: Nikhil Quiñones on 01-08-2024 Urea nitrogen [Mass/Vol] 7 mg/dL Normal 7-25 [facility] Comment on above: Performed By: #### U HCG, ADDONUAPLUS #### [address] Urinalysison 01-08-2024 Appearance (U) Clear Normal Clear [facility] Comment on above: Order Comment: Name Collection Type:: Clean-Voided Midstream Performed By: #### C UU #### [place] [address] [place] Bilirubin,Urine Negative Normal Negative [facility] Comment on above: Order Comment: Name Collection Type:: Clean-Voided Midstream Performed By: #### C UU #### [address] Glucose Ql (U) Normal Normal Normal [facility] Comment on above: Order Comment: Name Collection Type:: Clean-Voided Midstream Performed By: #### C UU #### [place] [address] [place] Ketones Ql (U) Negative Normal Negative [facility] Comment on above: Order Comment: Name Collection Type:: Clean-Voided Midstream Performed By: #### C UU #### [address] Leukocyte esterase Test strip Ql (U) Negative Normal Negative [facility] Comment on above: Order Comment: Name Collection Type:: Clean-Voided Midstream Performed By: #### C UU #### [address] Nitrite,Urine Negative Normal Negative [facility] Comment on above: Order Comment: Name Collection Type:: Clean-Voided Midstream Performed By: #### C UU #### [address] Occult Blood,Urine Negative Normal Negative [facility] Comment on above: Order Comment: Name Collection Type:: Clean-Voided Midstream Result Comment: PERF ORMED BY: [place] [address] PATHOLOGIST [employer]ATION DRAFTER LARISSA GUERRA M.D. Performed By: #### C UU #### [address] Protein,Urine Negative Normal Negative [facility] Comment on above: Order Comment: Name Collection Type:: Clean-Voided Midstream Performed By: #### C UU #### [address] Specificy [place],Urine 1.013 Normal 1.001-1.030 [facility] Comment on above: Order Comment: Name Collection Type:: Clean-Voided Midstream Performed By: #### C UU #### [address] Urobilinogen,Urine Normal Normal Normal [facility] Comment on above: Order Comment: Name Collection Type:: Clean-Voided Midstream Performed By: #### C UU #### [address] Urine clarity by refractomet ry automatedOrdered By: Nikhil Quiñones on 01-08-2024 Clarity Refractometry automated (U) Clear Clear [facility] Urine glucose measurement by automated test strip (mass/volume)Ordered By: Nikhil Quiñones on 01-08-2024 Glucose Auto test strip (U) [Mass/Vol] Normal mg/dL Normal [facility] Urine hemoglobin detection b y automated test stripOrdered By: Nikhil Quiñones on 01-08-2024 Hemoglobin Auto test strip Ql (U) Negative Negative [facility] Urine leukocyte esterase det ection by automated test stripOrdered By: Nikhil Quiñones on 01-08-2024 Leukocyte esterase Auto test strip Ql (U) Negative Negative [facility] Urine pH measurement by auto mated test stripOrdered By: Nikhil Quiñones on 01-08-2024 pH (U) 7.0 [pH] Normal 5.0-9.0 [facility] Comment on above: Order Comment: Name Collection Type:: Clean-Voided Midstream Performed By: #### C UU #### [address] Urobilinogen Auto test strip (U) [Mass/Vol]Ordered By: Nikhil Quiñones on 01-08-2024 Urobilinogen (U) [Mass/Vol] Normal mg/dL Normal [facility] Coding Summaryon 12-28-2023 Coding Summary HTMLBase 64 WgwtckrtBOh4fSq+PGhlYWQ+P Q2UHTQmO02hfAVrnR0dV7WGDF lOSywgQVBQTElOSyIgbmFtZT1 kaXNjZXJu IC8+WF8lBPFtAauxzQQgc0Z6r OM3I21pjg9oAOeqkXJ0DFRcTd Iqkhyaa1bypSx6OPplPiaiReM t YSOvjZ78PQC4gL42Tj30dUJgv BWpm9agrFf6YoPtNQDiJNW8aK qpQUnna3CaRCSlP81htIZav3D 6 RJRyqIadnNEtGbOlzVZ3wU4iY Vhlfkdli5aksyomZag2am33oE Lzo6D2vDK8L5GzeeM5GSGppHP g KgfdzKPMuF4kkqkxi9gotpqqT dMwIVAtAFy9WHv7UALdiElsIk VlUR07WFW3KVCcrjPhK0ThINI s eJzxTlF2e1Q8Wo0DL7XFFyilG 1VNTUFSWTwvdGQ+LF78ir97O3 SzXdlrDnh7UJMyCHW5lDC9lR9 n GQTcKIblo0V1yVE7J6DazbFik b3rp5ejGXNcHNvoJ40ohRAdw6 Z0QHLnxIK2NXOvjCrhRsAkjC5 3 Oyc+ZFRgkMcuq8TnStvam1gkf 6sadIe3CgchGPOcmbFusNnnTX H2m5ZlOf0kNOOsbHV0tNT2nM3 i DiUvXeU7SDntK226ToWruBDvM lirK77rD5GfpYT+DLBgRlb0JT TvvZfrCL5xS4VcSKMqgqpyfOS m oGswEN0mOYRdldskQQEygT6qC PMuS9n4DfKxYwR0RBtqV1WwOZ GcdgyhNd54mV4oAyZuUaZ5UZn u L8HaiwG5EPEwmEWaDGaeEDB0Z 62zn5I9WECiCVBhOWM6pIS3oV 1hbGlnbjogbGVmdDsgdmVydGl j ESfyEIruH143NLItmOkdWyWbI GluZyBEYXRlOiAgMDcvMTEvMj AyNDwvdGQ+MOKlQEV2yUezWLA n aTIgZQlmFw0gyHhvyVinPP5mH RAaryikPWNzvO9oZMBbhYLciP hjZK9wHPDcespvq065EmHkIBO 0 ZCVwhUXtC9ZblX5gWxItNGPyP OKkW5EzpBNhFQlbE439HMuoPk U3YXFgreEtN1KvVKKibSfqVzZ 0 q5Y8Xx7Ic9FvwdgiW3LeoCHcW uRyXualABk4L0GrKtiaqFQ+PC 31ZHHmIT63OHt4KIP7uWlbBYm i ZKAvR3YylV0nLlCgRKHwRCQlE yc+PHRhYmxlIHdpZHRoPScxMD FcBhRpaJvfQP3lUi2wKWWsHXQ v wGgecWUgRjCwa3eoGULcMBhlC Z5ceKhfE0OqtAW9BGYfx3p5Hv 59X93eF2YxsDB+VFNjkXS0mRA 0 cW0kDvVcNcX5BSdbD520ZbPcv KNxGgpih5yky6nskMr2BmP3PW GixvOlcDmwFBJ0c0LcMn55G13 s IHdpZHRoPSIxNSUiIHZhbGlnb i9coG0zLt6+XMTgqNQ1wDV7nO 7vRrQcTvX5YZttR617EpYepJB v Rlsqg4fyo1fjqSc8ZaXiQWHqa qIwgErmEIR7v0HgUq30U9VhbN skm9HgBai0gw57pKCri2X1aRL 9 F8DlOXCtkwxqdTRjcNvpQN8zW IDvfovaQNWnrX0sNNQwD9o0Ql EmKnH5SUujD1VicmX4MAPeyBT g GHKxjYBIaZ7kzwxan5bdjoxiL xFfLBOmQXp1RFl4WWWssLsjCw KbEHO3WoN3OAP0wMXmkX8fgMg n ydkjbJ8eEli+OSP4hKRcyQAQK L9vIootoAC+NKZgIVR0jUtpSA koMUHeuO2hMFRtA2e4BlYxJoJ 1 KIyeE2MithD7HNTohOTeEWMwz GNAkJ4jmoecx2gxrdzwOyXnSK GlODp9CYz8ZQLpsLyyNwNcAJR 0 QiX0WUO9bFAinC3vwUswxabzl G9wOyc+PygxyRnpEUN5LNl8W0 SpDgc5JZHvcFilVR2pyNUdSKw u Lk8xoXmisCvfJE3wJECpisazt 507AjPkx2isRWIfuHRaGQknZY Z2F05yg8I4SQLeEBZjFOA8gRI 4 vO0fhYexsmxbcRRylRlqruXzb EeyZMygYGwrZ789CKWfuIptWn FoBFr8M9CgWsa8RMLadBflTT3 n jLNsFRnxAk9pzCkecAchBO0uX NSpkrcmu068ZhLud1riHRKvuZ PcSYixWNU6V01xy7I7QXYlKOW w KBJ0cFJ7vO2bgUkgxxvppSImf RszahYjtZeaDIrwEDinM558DQ TkyCysJaLdaMc2K3WiJrl1THN z eEavQC6tsCGkQNnoUf3mjBraf QsiCY8sDYDugvyjs303UvTon8 hjQKNqhDXjQAggONZ4Q49uo2S 6 CQVkMRBqSES2oTX6kW4oxPhin jogbGVmdDsgdmVydGljYWwtYW gkK418BCZesQvoRbVnbIdskvJ g KAgtHGq3M5UiLggqiVG+PC90Y FBcCX23tSBppRQgy6oceXo5Mo ClAOIyDSJ0xUuxRRblr5SyXPV t S96diJMhe5G5LDNwhEcyqDGbV pUaaSM3jY5kUZcikuwwa9isqr ayRrumr0rant15hR15N20sOGr p FXInAWWmCDSlFHQnhRuqsx4cf G9wIi8+ERQcrCQ7oMQ5kA6yXP LkUxJ5XNzaH292OoMetRLaIot j w2jqc2mycCq4ZaK3WSWosnKob RnyQTZ2r9CfAm46V38lXQznAB NuOPClOCJkMLFznQckpi6hwE6 w Ii8+ASHepKN2mJS0kA3uHiPiM kJ1FNemC524PoEkeFBjQcqpG6 6iA2YqgCT+NVHgDya2NVGfcKs s TV4rfHIxHFttHk0zXKG6XgJnG tNdDNysB2AbIKEzxwlzxpuvtV M6VQWeXNSljK75Vn9ozZzrMFN w uUMEnG1dedvrd1pocthsGpYeT WHnBHn0AKz6UCWblEfcQyPpQO S4QvD1WDI8eEWrsP3lxHlfvut g iU7hC4AiZGYktgmfXr29bW8iM dLvZtV3DWrcRka+N6sTN60UYO GKFFWDZO0SNORJLLxTGdkbuYN + CFZlSQA2jVaaEUudKWQdaD0oY DNvT4n5FmLrWxW7FDenB9RcFJ GmnnanBi17hK4yNpMsZyB5DBb u X9CzveR3OLCucBRmILeaRCR8T 26jz1T3UUMlEPYpFUT0zRF1kB 1hbGlnbjogbGVmdDsgdmVydGl j OWyyEQraT169JPRcoWthIyVyS hD4QdA5QEK0M9YgZnl2BHLklW uhAB7ppVJmYOuzBs4nsAqegDl g YO7fHGPpyxbaBLIoeH0mFNNge FRyeAoaCM4sQRTnawliu806Fj DjSEP9QAJwrXHxJ7GruA2xAgF j WKIbHRGdK0TsbZHmGFvwY834T PkzZvJ4JOXwegDyM0TgOCDqdB csStE2o9S5Zc6sWGDIEXUjlkx v dGQ+NHAtMOI4uZslYIdiODSxx M5hTGRyF4w9NiFtDhP5NCsnD9 AdXUAcbgjbZf65sG4kFmCmXhR 1 QWnsD3BxlmB3OOCozXOhUKwpT RI3E19ey4D5GCLtIMDjHLF3bD I0cK6zvGbqddufmVOwzUpglrG y dIrsYEgyEDpzD084JCPoiIbvL kZFTUFMRTwvdGQ+IBXdYIX4tP jbQOypIYUnjQ7fKRCzZ7s1FdX w WkG0RZhqI8EcNOBrmoupTp18a R4iHgDcAoH9PHliU2NeibO3TZ XgjOQxANozXSF4H94gs4W5YUN w ZFYqYRY1oVD9tW0oxUhdmvsqd GVmdDsgdmVydGljYWwtYWxpZ2 03HGSmyKddEjLxZUBwQE7ecXo v dGQ+LN47ny94L2HfLkaeKcv5K YFjFVU2lTL4pM0iSDJjPLugp8 Q5nOB7F8ElbzPcqn6yc4epXQX z USxsZ01poHIod2N7QZTmqRG0G WEnxMryLrZpbG58Pbq+PGNvbG tqb2KkGrnhj5arb7czcRe3JrE w UPGdapTkyAruTDW4s3VxTx39I 29sIHdpZHRoPSIzMCUiIHZhbG zgvk2qwN9xKy6+LMWrnJY6vHZ 0 bH6lAlTtClJ4TPuaZ640BwGmf CVnLfkns7bof5xdsTh6QbHkLM MownPkuMmfTRX0y7AwNt50I1H v mUvii4ZvSfp9ki09dBCto4P9z AZ5J9XpNPWxljfwjUQyqSmbPZ 6vLTQahlgtXQAkoM6iELSjL4t 0 YjKaXqJ5IMmoP1KlygN0NGUdh KKmJEWrfNKBqY4fvdyik4ykfx alJkTzNIXbFFn9CPi8KPIhbPs u KsDgQQM0VkG2LEE9lMHhvX7fl KzncwoyoS0pLkw+OQh6x8zwjN JnNF0wsIN4IB71KF51jWVeb6T 5 qGA5A9SrPSUahiemweishHD9K DOwXEWjnJ17Kb5pgHmzFa1tNY KiHWG8LZDoeYNyI1FdzA4pWhW j OLFjWJItK7XjvHYyQAdqO039Q KggTsM2YKEjntBcS8UfINEzpJ spKyV8b2X2Pf9LJR89GA53UO8 8 kJOek1V8kXS8W3UjCNCfdeugl laqeQA8QLLpSUWvzG60Tf4oxA npPg4rQKYaEOB5VHTtpFFeW9K v fA5gDyZqVINtAMEoQ2TbqUJdI UgcV920UZmzZkF8VIHprvTdO9 MyFWNuuWusKjS4w0N3Vq6ICj6 6 SY57FA24jMSsc8Z6uOT3P2SzD XGpoaeppjpemUJ8EJYxUPHjiV 45Yy7ppAxvNa7vRCZgQSB4DGP p iVUyD6HedK1ePiFfXJQkIATkF 8YcqQGjKFnoH857QRhhVnM1EO WcnfJbB8WmLATysXjsEgY3b1D 7 Gy3IHIjrkfj6O1UlXcokeKX+P P96FVGrRP16cAFsfHZgq9wkmI o3SsQaRQRsNAA7vBydTFhel5O k ZXI (more content not included)... Normal [facility] .Auto Diff 12-18-2023 Auto [place] % 8 % Normal 06-30 [facility] Comment on above: Performed By: #### 1 [id number], [id number], [id number], 43728455, 7058157285, 3990632 #### [facility] (DEFAULT) [address] [place] [address] Baso Abs# 0.0 x10 Normal 0.0-0.2 [facility] Comment on above: Performed By: #### 1 [id number], [id number], 9060757595, 51631160, 7206767080, 0437714 #### [facility] (DEFAULT) [address] [place] [address] 00402 Basophils/100 WBC (Bld) 0.5 % Normal 0.2-2.0 [facility] Comment on above: Performed By: #### 1 [id number], [id number], 5813468006, 78479134, 9574875068, 7014965 #### [facility] (DEFAULT) [address] [place] [address] 88379 Eos Abs# 0.0 x10 Normal 0.0-0.4 [facility] Comment on above: Performed By: #### 1 [id number], 6092989176, 1133198485, 45417256, 5731271382, 0891161 #### [facility] (DEFAULT) [address] [place] [address] 26357 Eosinophils/100 WBC (Bld) 0.5 % Low 0.9-4.0 [facility] Comment on above: Performed By: #### 1 [id number], 8328546807, 9579897603, 52404499, 8632788535, 1228788 #### [facility] (DEFAULT) [address] [place] [address] 53498 Lymph Abs# 1.9 x10 Normal 1.3-2.9 [facility] Comment on above: Performed By: #### 1 [id number], 6041709062, 9833014424, 32522371, 5588691738, 1455412 #### [facility] (DEFAULT) [address] [place] [address] 78665 Lymphocytes/100 WBC (Bld) 32 % Normal 14-48 [facility] Comment on above: Performed By: #### 1 [id number], [id number], 7287041966, 32859092, 8860324700, 5502802 #### [facility] (DEFAULT) [address] [place] [address] [place] Abs# 0.4 x10 Normal 0.0-0.8 [facility] Comment on above: Performed By: #### 1 [id number], 0115586524, 9634597992, 70163907, 1710875923, 6244945 #### [facility] (DEFAULT) [address] [place] [address] Neut Abs# 3.5 x10 Normal 1.5-9.2 [facility] Comment on above: Performed By: #### 1 [id number], 0905999682, 9178227756, 52257806, 5206175598, 7091271 #### [facility] (DEFAULT) [address] [place] [address] Neutrophils/100 WBC (Bld) 59 % Normal 44-88 [facility] Comment on above: Performed By: #### 1 [id number], [id number], 9021160766, 19823599, 9519201635, 4335467 #### [facility] (DEFAULT) [address] [place] [address] CBC w/ Auto Diffon 4 Erythrocyte distribution width (RBC) [Ratio] 15.9 % High 11.5-15.0 [facility] Comment on above: Performed By: #### 1 [id number], [id number], 2303168065, 34197105, 1214196888, 8886178 #### [facility] (DEFAULT) [address] [place] [address] Hematocrit (Bld) [Volume fraction] 34.4 % Normal 33.7-40.4 [facility] Comment on above: Performed By: #### 1 [id number], 5446163253, 3117400779, 65575442, 5084755916, 3027883 #### [facility] (DEFAULT) [address] [place] [address] Hemoglobin (Bld) [Mass/Vol] 11.3 g/dL Normal 11.3-15.9 [facility] Comment on above: Performed By: #### 1 [id number], 0669410094, 6050114888, 25873590, 5817245104, 2982345 #### [facility] (DEFAULT) [address] [place] [address] Man Diff? Auto Invalid Interpretation Code [facility] Comment on above: Performed By: #### 1 [id number], [id number], 6513682702, 70998395, 4022036295, 9322078 #### [facility] (DEFAULT) [address] [place] [address] 36879 MCH (RBC) [Entitic mass] 28 pg Normal 24-34 [facility] Comment on above: Performed By: #### 1 [id number], 2182253108, 2095650457, 16126305, 0822805224, 0910177 #### [facility] (DEFAULT) [address] [place] [address] MCHC (RBC) [Mass/Vol] 33 g/dL Normal 26-37 [facility] Comment on above: Performed By: #### 1 [id number], 5722066015, 3958351233, 27672695, 6211662499, 6255187 #### [facility] (DEFAULT) [address] [place] [address] 50204 MCV (RBC) [Entitic vol] 84 fL Normal 81-100 [facility] Comment on above: Performed By: #### 1 [id number], 8580026218, 3328515083, 09189836, 2415850374, 7812666 #### [facility] (DEFAULT) [address] [place] [address] Platelet 233 x10 Normal 138-427 [facility] Comment on above: Performed By: #### 1 [id number], 2639064946, 4092652332, 32982777, 9669311174, 0654353 #### [facility] (DEFAULT) [address] [place], [place] [address] Platelet mean volume (Bld) [Entitic vol] 8.7 fL Normal 6.3-10.2 [facility] Comment on above: Performed By: #### 1 [id number], 9260669926, , 25923619, 8811319970, 3127186 #### [facility] (DEFAULT) [address] [place] [address] 04534 RBC 4.10 x10 Normal 3.70-5.30 [facility] Comment on above: Performed By: #### 1 [id number], 8531670952, 1941563994, 09022892, 8476942224, 5515229 #### [facility] (DEFAULT) [address] [place] [address] 62107 WBC 5.8 x10 Normal 3.5-10.5 [facility] Comment on above: Performed By: #### 1 [id number], 2978659784, 2993641919, 97046908, 2117220285, 5811650 #### [facility] (DEFAULT) [address] [place] [address] 16018 CMP Standardon 12-18-2023 eGFR Non AA >60 Invalid Interpretation Code [facility] Comment on above: Performed By: #### 1 [id number], [id number], 1742817861, 86606249, 3562441279, 2174767 ####[facility] (DEFAULT)[address] [place] [address] 55747 eGFR AA >60 Invalid Interpretation Code [facility] Comment on above: Performed By: #### 1 [id number], 9814927490, 6475119768, 02819469, 5640840285, 6920498 ####[facility] (DEFAULT)[address] [place] [address] 98688 Albumin [Mass/Vol] 4.3 g/dL Normal 3.5-5.[address] [facility] Comment on above: Performed By: #### 1 [id number], 8140342376, 1242341797, 41943780, 9333572133, 1042293 ####[facility] (DEFAULT)[address] [place] [address] 11409 Albumin/Globulin [Mass ratio] 1.2 {ratio} Low 1.4-2.6 [facility] Comment on above: Performed By: #### 1 [id number], 1515452827, 6051077217, 54534860, 3806668980, 3612763 ####[facility] (DEFAULT)[address] [place] [address] 71719 Alk Phos 44 IU/L Normal 32-91 [facility] Comment on above: Performed By: #### 1 [id number], 4543662944, 2176754259, 37037942, 4002428590, 2853770 ####[facility] (DEFAULT)[address] [place] [address] 89291 ALT [Catalytic activity/Vol] 13.0 U/L Low 14.0-54.0 [facility] Comment on above: Performed By: #### 1 [id number], 7315388749, 8557207630, 51557259, 0733772811, 9308838 ####[facility] (DEFAULT)[address] [place] [address] 21951 Anion gap [Moles/Vol] 11.1 mmol/L Normal 5.0-19.0 [facility] Comment on above: Performed By: #### 1 [id number], 1094393146, 8770531887, 42383973, 9170225539, 1974494 ####[facility] (DEFAULT)[address] [place] [address] 71201 AST [Catalytic activity/Vol] 17 U/L Normal 15-41 [facility] Comment on above: Performed By: #### 1 [id number], 8077431968, 9308454573, 70750361, 9798557468, 1323684 ####[facility] (DEFAULT)[address] [place] [address] 91579 Bili Total 0.4 mg/dL Normal 0.3-1.2 [facility] Comment on above: Performed By: #### 1 [id number], 2652714330, 6493611385, 98146583, 4375719217, 1688731 ####[facility] (DEFAULT)[address] [place] [address] 47437 Calcium [Mass/Vol] 8.9 mg/dL Normal 8.9-10.[address] [facility] Comment on above: Performed By: #### 1 [id number], 3460154312, 5291605796, 57262092, 6137354155, 8843021 ####[facility] (DEFAULT)[address] [place] [address] 27159 Chloride [Moles/Vol] 106 mmol/L Normal 101-111 [facility] Comment on above: Performed By: #### 1 [id number], 0600412820, 2513173753, 23387193, 8846051854, 5333809 ####[facility] (DEFAULT)[address] [place] [address] 67162 CO2 [Moles/Vol] 23 mmol/L Normal 21-32 [facility] Comment on above: Performed By: #### 1 [id number], 7525872000, 4163344112, 97158460, 3512976327, 3028327 ####[facility] (DEFAULT)[address] [place] [address] 27266 Creatinine [Mass/Vol] 0.67 mg/dL Normal 0.60-1.30 [facility] Comment on above: Performed By: #### 1 [id number], [id number], [id number], [id number], [id number], [id number] ####[facility] (DEFAULT)[address] [place] [address] 85883 Globulin (S) [Mass/Vol] 3.4 g/dL Normal 1.5-4.3 [facility] Comment on above: Performed By: #### 1 [id number], [id number], [id number], [id number], [id number], [id number] ####[facility] (DEFAULT)[address] [place] [address] 89407 Glucose [Mass/Vol] 93.0 mg/dL Normal 74.0-118.[address] [facility] Comment on above: Performed By: #### 1 [id number], [id number], [id number], [id number], [id number], [id number] ####[facility] (DEFAULT)[address] [place] [address]0116 Osmolality 272 mOsm/L Invalid Interpretation Code [facility] Comment on above: Performed By: #### 1 [id number], [id number], [id number], 23749724, [id number], [id number] ####[facility] (DEFAULT)[address] [place] [address] 24670 Potassium [Moles/Vol] 3.1 mmol/L Low 3.6-5.1 [facility] Comment on above: Performed By: #### 1 [id number], [id number], [id number], 24080808, [id number], 5969959 ####[facility] (DEFAULT)[address] [place] [address] 94113 Protein [Mass/Vol] 7.7 g/dL Normal 6.5-8.[address] [facility] Comment on above: Performed By: #### 1 [id number], [id number], [id number], [id number], 2658259346, 0077466 ####[facility] (DEFAULT)[address] [place] [address] 86931 Sodium [Moles/Vol] 137.0 mmol/L Normal 136.0-144.0 [facility] Comment on above: Performed By: #### 1 [id number], [id number], [id number], 84337243, 8328759967, 7496122 ####[facility] (DEFAULT)[address] [place] [address] 11552 Urea nitrogen [Mass/Vol] 9 mg/dL Normal 8-26 [facility] Comment on above: Performed By: #### 1 [id number], [id number], [id number], 68189133, 1015808792, 9109991 ####[facility] (DEFAULT)[address] [place] [address] 88143 Urea nitrogen/Creatinine [Mass ratio] 13.4 mg/mg Normal 4.6-16.2 [facility] Comment on above: Performed By: #### 1 [id number], [id number], [id number], [id number], [id number], 2578136 ####[facility] (DEFAULT)[address] [place] [address] Abdomen/Pelvis w/o Contra beryl 12-18-2023 CT [...] MD 12/18/23 6:48 pm Technologist: DANN Morales [facility] ED Clinical Summaryon 2023 ED Clinical Summary [facility] - Emergency Department [address] [place] [address] ED Clinical Summary PERSON INFORMATION Name: BARBRA CLAROS Age: 28 Years Sex: FEMALE : 1995 MRN: Acct#: Visit Reason: Pelvic pain; FALL Arrival: 12/18/2023 16:55:10 Discharge: 12/18/2023 19:09:00 LOS: 000 02:14 Check In: 12/18/2023 16:55:10 Checkout:12/18/2023 19:09:00 Address: [address] [place], [place] [id number] PCP: Provider, None PROVIDER INFORMATION Provider Role Assigned Unassigned Anjel Yates MD ED Provider 12/18/2023 16:57:27 Viola Esqueda GAS USAGE METER CLERK Nurse 12/18/2023 17:05:39 VITALS INFORMATION Vital Sign [...] PATIENT EDUCATION INFORMATION Instructions: Abdominal Pain, Adult, [id number] Follow-Up: With: Address: When: Follow up with primary care provider Within 3 to 5 days DIAGNOSIS: 1:Fall; 2:Pelvic pain in female Patient Understands: Yes - Patient/family/caregiver verbalizes understanding of instructions given Comment: [facility] ED Note-Nursingon 12-18-2023 ED Note-Nursing Patient [...] removal from tubes and uterus years ago. [facility] ED Patient Summaryon 024 ED Patient Summary [facility] - Emergency Department [address] [place] [address] PATIENT DISCHARGE INSTRUCTIONS Patient Information Name: BARBRA CLAROS Age: 28 Years Date of : 1995 MRN: [id number] Reason For Visit: Pelvic pain; FALL Arrival Time: 12/18/2023 16:55:10 Primary Care Physician: Provider, None Attending Physician: Anjel Yates MD Comment: Visit Diagnosis: Diagnoses This Visit Fall (W19.XXXA) Pelvic pain ([id number]) Pelvic pain in female (R10.2) The Pharmacy at [facility] is open Monday through Monday from [...] alcohol and/or drug addiction problems; contact the [facility] 09/01 Crisis Hotline -Text 8UJTC re 974725. If you received any narcotics, sedation, or [...] and treatment you received today in the [facility] Emergency Department were for an urgent problem and are not intended as complete care. It is important for you to follow up with a doctor, nurse practitioner, or physician?s assistant center manager for ongoing care. If your symptoms become [...] so we can reach you if necessary. [facility] Emergency Department has provided you with a complete list of medications post discharge. Please inform your plastic top assembler/provider of your visit and for further instruction [...] Education Abdominal Pain, Adult Follow-up with your MANAGER CARGO review this emergency department visit and for [...] these instructions at home: Medicines ? Take [id number] and prescription medicines only as told by your doctor. ? Do not take medicines that help you poop (laxatives) unless told by your doctor. General i (more content not included)... Normal [facility] Extra Greenon 12-18-2023 Tube Collected Yes Invalid Interpretation Code [facility] Comment on above: Performed By: #### 1 [id number], [id number], [id number], [id number], [id number] #### [facility] (DEFAULT) [address] [place] [address] UA [id number] 12-18-2023 UA Bacteria Trace [facility] Comment on above: Order Comment: Urina lysis Microscopic order added on by Inc[employer] Expert Rules system. Performed By: #### 5 [id number], [id number] ####[facility] (DEFAULT)[address] [place] [address] UA RBC 3-5 [facility] Comment on above: Order Comment: Urina lysis Microscopic order added on by Discern Expert Rules system. Performed By: #### 5 [id number], [id number] ####[facility] (DEFAULT)[address] [place] [address] UA Squam Epi Few [facility] Comment on above: Order Comment: Urina lysis Microscopic order added on by [employer] Expert Rules system. Performed By: #### 5 [id number], [id number] ####[facility] (DEFAULT)[address] [place] [address] UA WBC 0-2 [facility] Comment on above: Order Comment: Urina lysis Microscopic order added on by [employer] Rules system. Performed By: #### 5 [id number], [id number] ####[facility] (DEFAULT)[address] [place] [address] UA w Culture if Ind Standard on 12-18-2023 Breakpoint UA [facility] Comment on above: Performed By: #### 5 [id number], [id number] ####[facility] (DEFAULT)[address] [place] [address] Color (U) Yellow [facility] Comment on above: Performed By: #### 5 [id number], [id number] ####[facility] (DEFAULT)[address] [place] [address] Culture? Not Indicated Invalid Interpretation Code [facility] Comment on above: Result Comment: Resu lt created by rule GL_MAGR_ADD_UA_CULT Result created by rule GL_MAGR_ADD_UA_CULT Result created by rule GL_MAGR_ADD_UA_CULT1 Performed By: #### 5 [id number], [id number] ####[facility] (DEFAULT)[address] [place] [address] Glucose (U) [Mass/Vol] Negative Normal [facility] Comment on above: Performed By: #### 5 [id number], [id number] ####[facility] (DEFAULT)[address] [place] [address] Ketones Ql (U) Negative [facility] Comment on above: Performed By: #### 5 [id number], [id number] ####[facility] (DEFAULT)[address] [place] [address] Micro? Indicated Invalid Interpretation Code [facility] Comment on above: Result Comment: Resu lt created by rule GL_MAGR_ADD_UA_MICRO Performed By: #### 5 [id number], [id number] ####[facility] (DEFAULT)[address] [place] [address] UA Bilirubin Negative Normal [facility] Comment on above: Performed By: #### 5 [id number], [id number] ####[facility] (DEFAULT)[address] [place] [address] UA Blood SMALL Abnormal NEGATIVE [facility] Comment on above: Performed By: #### 5 [id number], [id number] ####[facility] (DEFAULT)[address] [place] [address] UA Clarity CLEAR Normal CLEAR [facility] Comment on above: Performed By: #### 5 [id number], [id number] ####[facility] (DEFAULT)[address] [place] [address] UA Leuk Est Negative Normal NEGATIVE [facility] Comment on above: Performed By: #### 5 [id number], [id number] ####[facility] (DEFAULT)[address] [place] [address] UA Nitrite Negative Normal NEGATIVE [facility] Comment on above: Performed By: #### 5 [id number], [id number] ####[facility] (DEFAULT)[address] [place] [address] UA pH 6.0 Normal 5-8 [facility] Comment on above: Performed By: #### 5 [id number], [id number] ####[facility] (DEFAULT)[address] [place] [address] UA Protein Negative Normal NEGATIVE [facility] Comment on above: Performed By: #### 5 [id number], [id number] ####[facility] (DEFAULT)[address] [place] [address] UA Spec Grav 1.010 Normal 1.001-1.035 [facility] Comment on above: Performed By: #### 5 [id number], [id number] ####[facility] (DEFAULT)[address] [place] [address] UA Urobilinogen 0.2 mg/dL Normal 0.2-1.0 [facility] Comment on above: Performed By: #### 5 [id number], [id number] ####[facility] (DEFAULT)[address] [place] [address] Urine Source Clean Catch Normal [facility] Comment on above: Performed By: #### 5 [id number], [id number] ####[facility] (DEFAULT)[address] [place] [address] CBCon 11-28-2023 Erythrocyte distribution width (RBC) [Ratio] 14.6 % High 11.8-14.4 [facility] Comment on above: Performed By: #### C DP #### [facility] [address] [place] [address] Wheel Loader Operator: Lakhwinder Tim MD Hematocrit (Bld) [Volume fraction] 35.5 % Low 36.3-47.1 [facility] Comment on above: Performed By: #### C DP #### [facility] [address] [place] [address] Wheel Loader Operator: Lakhwinder Tim MD Hemoglobin (Bld) [Mass/Vol] 11.3 g/dL Low 11.9-15.1 [facility] Comment on above: Performed By: #### C DP #### [facility] [address] [place], [place] 1059283 Wheel Loader Operator: Lakhwinder Tim MD MCH (RBC) [Entitic mass] 27.3 pg Normal 25.2-33.5 [facility] Comment on above: Performed By: #### C DP #### [address] [place], [facility]83 Wheel Loader Operator: Lakhwinder Tim MD MCHC (RBC) [Mass/Vol] 31.8 g/dL Normal 28.4-34.8 [facility] Comment on above: Performed By: #### C DP #### [address] [place], [facility]83 Wheel Loader Operator: Lakhwinder Tim MD MCV (RBC) [Entitic vol] 85.7 fL Normal 82.6-102.9 [facility] Comment on above: Performed By: #### C DP #### [address] [place], [place] 5878483 Wheel Loader Operator: Lakhwinder Tim MD NRBC Automated 0.0 per [address] [facility] Comment on above: Performed By: #### C DP #### [address] [place], [facility]83 Wheel Loader Operator: Lakhwinder Tim MD Platelet mean volume (Bld) [Entitic vol] 10.2 fL Normal 8.1-13.5 [facility] Comment on above: Performed By: #### C DP #### [facility] [address] [place] [address] [place], [place] [id number] Wheel Loader Operator: Lakhwinder Tim MD Platelets (Bld) [#/Vol] 279 10*3/uL Normal 138-453 [facility] Comment on above: Performed By: #### C DP #### [address] [place], [facility]83 Wheel Loader Operator: Lakhwinder Tim MD RBC (Bld) [#/Vol] 4.14 10*6/uL Normal 3.95-5.11 [facility] Comment on above: Performed By: #### C DP #### [facility] [address] [place], [place] [id number] Wheel Loader Operator: Lakhwinder Tim MD WBC (Bld) [#/Vol] 6.3 10*3/uL Normal 3.5-11.3 [facility] Comment on above: Performed By: #### C DP #### [facility] [address] [place], [place] 8886183 Wheel Loader Operator: Lakhwinder Tim MD Vaginitis DNA Probeon 2023 Anca Negative Normal NEG [facility] Comment on above: Result Comment: for Anca sp. Method of testing is a DNA probe intended for detection and identification of Anca species, Gardnerella vaginalis, and Trichomonas vaginalis nucleic acid in vaginal fluid specimens from patients with symptoms of vaginitis/vaginosis. Performed By: #### C P, LIP, CDP #### [facility] [address] [place] [address] [place], [place] [id number] Wheel Loader Operator: Lakhwinder Tim MD Gardnerella Positive Abnormal NEG [facility] Comment on above: Result Comment: for Gardnerella vaginalis Performed By: #### C P, LIP, CDP #### [facility] [address] [place], [place] [address]83 Wheel Loader Operator: Lakhwinder Tim MD Trichomonas Negative Normal NEG [facility] Comment on above: Result Comment: for Trichomonas Vaginalis Performed By: #### C P, LIP, CDP #### [facility] [address] [place], [place] 5145383 Wheel Loader Operator: Lakhwinder Tim MD Source .VAGINAL SWAB Normal [facility] Comment on above: Performed By: #### C P, LIP, CDP #### [facility] [address] [place] [address] Wheel Loader Operator: Lakhwinder Tim MD CT ABDOMEN PELVIS W IV CONTR Marichuy 11-27-2023 CT ABDOMEN PELVIS W IV CONTRAST ADDENDUM: EXAM NOTE - Needs AddendumDr PelletierCORE: Dorinda Joseph, 11/26/2023 11:56 PMCOMMUNICATION NOTE - Speak with Physician - STATCompletedSmall amount of hemorrhage in the pelvic cul-de-sac estimated at 100 cc.Assigned:zCORE: Amanda Joseph Hassan : Neuro/IC, 11/26/2023 11:50 PMAttemptedcallingzCORE: JosephDorinda andrade, 11/26/2023 11:[address] Saucedo with [address] PelletierCORE: Jake Dorinda, 11/26/2023 11:56 PM Electronically Signed by: [...] MD 11/27/23 Edited Result - FINAL Normal [facility] Basic Metabolic Profon 11-25 Anion gap [Moles/Vol] 8 mmol/L Low 9-17 [facility] Comment on above: Performed By: #### U MICAO, UAX #### [facility] [address] [place] [address] Wheel Loader Operator: Lakhwinder Tim MD BUN/CRE Ratio 18 Normal 9-20 [facility] Comment on above: Performed By: #### U MICAO, UAX #### [facility] [address] [place] [address] Wheel Loader Operator: Lakhwinder Tim MD Calcium [Mass/Vol] 8.5 mg/dL Low 8.6-10.4 [facility] Comment on above: Performed By: #### U MICAO, UAX #### [facility] [address] [place], [place] [id number] Wheel Loader Operator: Lakhwinder Tim MD Chloride [Moles/Vol] 101 mmol/L Normal 98-107 [facility] Comment on above: Performed By: #### U MICAO, UAX #### [facility] [address] [place], [place] 3739383 Wheel Loader Operator: Lakhwinder Tim MD CO2 [Moles/Vol] 28 mmol/L Normal 20-31 [facility] Comment on above: Performed By: #### U MICAO, UAX #### [facility] [address] [place], [place] 3798883 Wheel Loader Operator: Lakhwinder Tim MD Creatinine [Mass/Vol] 0.6 mg/dL Normal 0.5-0.9 [facility] Comment on above: Performed By: #### U MICAO, UAX #### [facility] [address] [place] [address] Wheel Loader Operator: Lakhwinder Tim MD GFR/1.73 sq M.predicted among non-blacks MDRD (S/P/Bld) [Vol rate/Area] mL/min/{1.73_m2} Normal >60 [facility] Comment on above: Result Comment: These [...] Performed By: #### U OSMINO, UAX #### [facility] [address] [place] [address] [place] [address] Wheel Loader Operator: Lakhwinder Tim MD Glucose [Mass/Vol] 88 mg/dL Normal 70-99 [facility] Comment on above: Performed By: #### U OSMINO, UAX #### [facility] [address] [place] [address] [place], [place] 9190983 Wheel Loader Operator: Lakhwinder Tim MD Potassium [Moles/Vol] 3.7 mmol/L Normal 3.7-5.3 [facility] Comment on above: Performed By: #### U OSMINO, UAX #### [address] [place], [place] [address]83 Wheel Loader Operator: Lakhwinder Tim MD Sodium [Moles/Vol] 137 mmol/L Normal 135-144 [facility] Comment on above: Performed By: #### U MICAO, UAX #### [facility] [address] [place] [address] [place], [place] [id number] Wheel Loader Operator: Lakhwinder Tim MD Urea nitrogen [Mass/Vol] 11 mg/dL Normal 6-20 [facility] Comment on above: Performed By: #### U MICAO, UAX #### [facility] [address] [place] [address] [place] [address] Wheel Loader Operator: Lakhwinder Tim MD CBC with Diffon 11-26-2023 Abs. Basophil <0.03 Normal 0.00-0.20 [facility] Comment on above: Performed By: #### Josesito COLLINS UAX #### [facility] [address] [place] [address] [place], [place] [id number] Wheel Loader Operator: Lakhwinder Tim MD Abs.Imm.Granulocyte <0.03 Normal 0.00-0.30 [facility] Comment on above: Performed By: #### U KARINA UAX #### [address] [place] [address] Wheel Loader Operator: Lakhwinder Tim MD Abs.Neutrophil (Seg) 4.02 k/uL Normal 1.50-8.10 [facility] Comment on above: Performed By: #### Josesito COLLINS UAX #### [address] [place], [facility]83 Wheel Loader Operator: Lakhwinder Tim MD Basophils/100 WBC (Bld) 0 % Normal 0-2 [facility] Comment on above: Performed By: #### Josesito COLLINS UAX #### [address] [place], [place] [id number] Wheel Loader Operator: Lakhwinder Tim MD Eosinophils (Bld) [#/Vol] 0.20 10*3/uL Normal 0.00-0.44 [facility] Comment on above: Performed By: #### Josesito COLLINS UAX #### [facility] [address] [place] [address] [place], [place] 8207183 Wheel Loader Operator: Lakhwinder Tim MD Eosinophils/100 WBC (Bld) 3 % Normal 1-4 [facility] Comment on above: Performed By: #### U KARINA UAX #### [address] [place], [place] 260[address]383 Wheel Loader Operator: Lakhwinder Tim MD Erythrocyte distribution width (RBC) [Ratio] 14.6 % High 11.8-14.4 [facility] Comment on above: Performed By: #### U MICAO, UAX #### [facility] [address] [place], [facility]83 Wheel Loader Operator: Lakhwinder Tim MD Hematocrit (Bld) [Volume fraction] 33.2 % Low 36.3-47.1 [facility] Comment on above: Performed By: #### U MICAO, UAX #### [facility] [address] [place], [facility]83 Wheel Loader Operator: Lakhwinder Tim MD Hemoglobin (Bld) [Mass/Vol] 10.8 g/dL Low 11.9-15.1 [facility] Comment on above: Performed By: #### U MICAO, UAX #### [facility] [address] [place] [address] Dr. [place], [facility]83 Wheel Loader Operator: Lakhwinder Tim MD Immature granulocytes/100 WBC (Bld) 0 % Normal 0 [facility] Comment on above: Performed By: #### U OSMINO, UAX #### [address] [place], [facility]83 Wheel Loader Operator: Lakhwinder Tim MD Lymphocytes (Bld) [#/Vol] 2.70 10*3/uL Normal 1.10-3.70 [facility] Comment on above: Performed By: #### U OSMINO, UAX #### [facility] [address] [place], [facility]83 Wheel Loader Operator: Lakhwinder Tim MD Lymphocytes/100 WBC (Bld) 36 % Normal 24-43 [facility] Comment on above: Performed By: #### U MICAO, UAX #### [facility] [address] [place] [address] Wheel Loader Operator: Lakhwinder Tim MD MCH (RBC) [Entitic mass] 27.3 pg Normal 25.2-33.5 [facility] Comment on above: Performed By: #### U MICAO, UAX #### [facility] [address] [place], [place] 15[address]83 Wheel Loader Operator: Lakhwinder Tim MD MCHC (RBC) [Mass/Vol] 32.5 g/dL Normal 28.4-34.8 [facility] Comment on above: Performed By: #### U MICAO, UAX #### [facility] [address] [place], [place] 3246783 Wheel Loader Operator: Lakhwinder Tim MD MCV (RBC) [Entitic vol] 84.1 fL Normal 82.6-102.9 [facility] Comment on above: Performed By: #### U OSMINO, UAX #### [address] [place] [address] Wheel Loader Operator: Lakhwinder Tim MD Monocytes (Bld) [#/Vol] 0.64 10*3/uL Normal 0.10-1.20 [facility] Comment on above: Performed By: #### U OSMINO, UAX #### [address] [place], [place] [address]83 Wheel Loader Operator: Lakhwinder Tim MD Monocytes/100 WBC (Bld) 8 % Normal 3-12 [facility] Comment on above: Performed By: #### U OSMINO, UAX #### [facility] [address] [place] [address] Dr[place], [facility]83 Wheel Loader Operator: Lakhwinder Tim MD Neutrophil (Seg) 53 % Normal 36-65 [facility] Comment on above: Performed By: #### U OSMINO, UAX #### [facility] [address] [place] [address] Wheel Loader Operator: Lakhwinder Tim MD NRBC Automated 0.0 per [address] [facility] Comment on above: Performed By: #### U MICAO, UAX #### [facility] [address] [place], [facility]83 Wheel Loader Operator: Lakhwinder Tim MD Platelet mean volume (Bld) [Entitic vol] 10.2 fL Normal 8.1-13.5 [facility] Comment on above: Performed By: #### U MICAO, UAX #### [facility] [address] [place], [facility]83 Wheel Loader Operator: Lakhwinder Tim MD Platelets (Bld) [#/Vol] 253 10*3/uL Normal 138-453 [facility] Comment on above: Performed By: #### U MICAO, UAX #### [facility] [address] [place], [facility]83 Wheel Loader Operator: Lakhwinder Tim MD RBC (Bld) [#/Vol] 3.95 10*6/uL Normal 3.95-5.11 [facility] Comment on above: Performed By: #### U OSMINO, UAX #### [facility] [address] [place], [facility]83 Wheel Loader Operator: Lakhwinder Tim MD WBC (Bld) [#/Vol] 7.6 10*3/uL Normal 3.5-11.3 [facility] Comment on above: Performed By: #### U MICAO, UAX #### [address] [place], [facility]83 Wheel Loader Operator: Lakhwinder Tim MD Magnesiumon 11-26-2023 Magnesium [Mass/Vol] 2.0 mg/dL Normal 1.6-2.6 [facility] Comment on above: Performed By: #### U MICAO, UAX #### [facility] [address] [place] [address] Wheel Loader Operator: Lakhwinder Tim MD Urinalysis w/ Microon 2023 Epithelial cells LM Ql (Urine sed) 0 TO 2 Normal 0-25 [facility] Comment on above: Performed By: #### C P, LIP, CDP #### [facility] [address] [place], [place] 8374183 Wheel Loader Operator: Lakhwinder Tim MD Mucus Strands 1+ Abnormal NONE [facility] Comment on above: Performed By: #### C P, LIP, CDP #### [facility] [address] [place], [place] 6[address]83 Wheel Loader Operator: Lakhwinder Tim MD Urine RBC's 0 TO 2 Normal 0-2 [facility] Comment on above: Performed By: #### C P, LIP, CDP #### [facility] [address] [place], [place] 8535783 Wheel Loader Operator: Lakhwinder Tim MD Urine WBC's 0 TO 2 Normal 0-5 [facility] Comment on above: Performed By: #### C P, LIP, CDP #### [facility] [address] [place], [facility]83 Wheel Loader Operator: Lakhwinder Tim MD Bilirubin, SemiQt,Ur Negative Normal NEG [facility] Comment on above: Performed By: #### C P, LIP, CDP #### [address] [place] [address] Wheel Loader Operator: Lakhwinder Tim MD Blood, Urine Negative Normal NEG [facility] Comment on above: Performed By: #### C P, LIP, CDP #### [facility] [address] [place], [facility]83 Wheel Loader Operator: Lakhwinder Tim MD Clarity (U) Clear Normal CLEAR [facility] Comment on above: Performed By: #### C P, LIP, CDP #### [facility] [address] [place], [facility]83 Wheel Loader Operator: Lakhwinder Tim MD Color (U) Yellow Normal YEL [facility] Comment on above: Performed By: #### C P, LIP, CDP #### [facility] [address] [place] [address] [place], [place] 3825983 Wheel Loader Operator: Lakhwinder Tim MD Glucose Ql (U) Negative Normal NEG [facility] Comment on above: Performed By: #### C P, LIP, CDP #### [address] [place], [place] 9384683 Wheel Loader Operator: Lakhwinder Tim MD Ketones Ql (U) Negative Normal NEG [facility] Comment on above: Performed By: #### C P, LIP, CDP #### [facility] [address] [place] [address] [place], [place] 2137883 Wheel Loader Operator: Lakhwinder Tim MD Leukocyte esterase Test strip Ql (U) Negative Normal NEG [facility] Comment on above: Performed By: #### C P, LIP, CDP #### [address] [place], [facility]83 Wheel Loader Operator: Lakhwinder Tim MD Nitrite,Ur Negative Normal [facility] Comment on above: Performed By: #### C P, LIP, CDP #### [address] [place], [facility]83 Wheel Loader Operator: Lakhwinder Tim MD PH,Ur 6.0 Normal 5.0-9.0 [facility] Comment on above: Performed By: #### C P, LIP, CDP #### [address] [place], [place] 76[address]83 Wheel Loader Operator: Lakhwinder Tim MD Protein Ql (U) Negative Normal NEG [facility] Comment on above: Performed By: #### C P, LIP, CDP #### [address] [place], [place] 769[address]83 Wheel Loader Operator: Lakhwinder Tim MD Spec. Fork,Ur >1.030 High 1.010-1.020 [facility] Comment on above: Performed By: #### C P, LIP, CDP #### [facility] [address] [place], [place] 7178683 Wheel Loader Operator: Lakhwinder Tim MD Urobilinogen,Ur Normal Normal 0.0-1.0 [facility] Comment on above: Performed By: #### C P, LIP, CDP #### [facility] [address] [place] [address] Wheel Loader Operator: Lakhwinder Tim MD Surgical Pathology Reporton 11-20-2023 Surgical Pathology Report (NOTE) Path Number: [id number] -- Diagnosis -- UTERUS AND CERVIX, HYSTERECTOMY: - SECRETORY PHASE ENDOMETRIUM. - BENIGN CERVIX WITH NO SIGNIFICANT PATHOLOGIC ABNORMALITY. Sayra Olivares Electronically Signed Out ag11/22/2023 Clinical Information Pre-Op Diagnosis: MENORRHAGIA WITH REGULAR [...] No further masses or lesions are identified. Gyro Compass Tester sections are submitted in 4c as follows: 1 anterior cervix 2 posterior cervix 3 anterior endomyometrium 4 posterior endomyometrium. tm Kay Saucedo/kb2:11/21/2023 Microscopic Description Microscopic examination performed. Processing Lab: [address] [address] Interpretation Performed at [address] [address] SURGICAL PATHOLOGY CONSULTATION Patient Name: BARBRA CLAROS [facility] Rec: [id number] [facility] ANATOMIC PATHOLOGY [facility] [place], [place] [address] [facility] Coding Summaryon 10-25-2023 Coding Summary HTMLBase 64 LfidxcywBQb5mLn+PGhlYWQ+P P8EQIJtZ85tfCGrlC0rI3JSGS lOSywgQVBQTElOSyIgbmFtZT1 kaXNjZXJu IC8+WU2iQRTzJkmiaGHtx1D6q PK6N04jlb1nQDzskUX1WPScXm Vdizzuz3lsdVu7XWqbXpoaLmE t RQLtiC85LQC2mW45Aw79lVBnk KEjv0modPq7PsJwCTCiKQT2nY fgMLclx2VrPLLdD55kpVOqz4N 6 YPDalCazfZQxOyPfvAX6hA0dU Kropnnus6ccbtnwEwv8mw99gH Pix0Q5nBU9C2HgjzF0QILtbDL g MexdxBLQyE8sllivk8gthtthZ cVxIMEvHPf9QRs8NHCvgVfbUx ZfHL93HZN1CENaljQgA8BbNCL s jTndBtE4g5E1Ea6VH1VFBurbU 1VNTUFSWTwvdGQ+YU64pd83N9 YeBkdmOgz4GJSxCVX6kOE4lV5 n QAWvWNree7X5qLY8X3RnpwFsp t9cy0brMEShZHqcY16ncWHhg5 J9FVDxaOB5EZWziUwuTkXmqQ6 3 Oyc+WZFyhLppy1OcYhqoo0tfx 9irrLe8ZtdzACZkheSxkCvaIY W0v7RsRj1hLKAjkWA5gHU0hD1 i WaLuBeQ1TZhcG959OnTfdFVdB owxD07pU7HhrYO+XMJwRds7OU YwdFubEI5aO1XuEAGhtgzduAJ m lYyeKP1hYNAyejzgPVUqiO5wX JCuM5b9KvPxVpI8VFnpZ5PaWJ GrnebiQr00fY5aWgYgJcX6OIk u G5DqpzH8ZTQxuOCzYAivKRX4L 01ar4P9GDIsWWIuWWH6uMX4uX 1hbGlnbjogbGVmdDsgdmVydGl j LHctACtjR600UQEdbPczZbLpF GluZyBEYXRlOiAgMDUvMDgvMj AyNDwvdGQ+NLAlVAI4fLvyFRD n wNQfINgrGh3jbIhceKgrRQ0dZ WIkrsdcVKHxtH6aKQDpkVZydU svYI1bZMFmljwta577GoIaZZO 0 FCKdcUNkE8GzmA9oBdBlUUHmY VZdQ5SyvNCeVUgyA802PRztSr R7ITUemeKcX9ZwPLFgjJkvHmP 0 k1A4Iv0Ta3UdhdojG8IklPWeQ sMvPuhuEVp4S7NuKqmoeCR+PC 70LWKoVW35JLl8TMJ8zXebOOs i WMPaW9GccG4aHgDfGMZoVZIgB yc+PHRhYmxlIHdpZHRoPScxMD JcEoOlsEmcAC1tMk6bBJXmHKV v aSphiHMyYrOub9ibTBWmWUeeS T6xjEdlF7TdaWH2EXZgl1y4Cm 74A21eJ8AdcCY+QEZpnLF2xZR 0 xQ4vJeOfOtF7YEkaN051RfYhp KYeFzdfk9zqj9svvJw5WeX8XA VfpoAusOmyVOF4s1CeAx48F24 s IHdpZHRoPSIxNSUiIHZhbGlnb l5ojK5fDu5+UCVbeGZ2jWZ2sP 3kBwVfRuG0NMkbX163ZzXhpWX v Uzjqy5jvd3lwrKu8WqPpYYFkz rAmwKuhNGI1y5SiPl17N8XfjN axx7YoKnv4lh13aUFav4M7tHP 9 L9YuVWEshsloqKMwvGccDX9rO BOlhhtlEMExaI3oRPIjW4j7Zq PzLaH9OXfzI8BkymF7VIDszLH g MKVghWTCpV5pgklma5izitkbJ lHqICVrYJz1AFl4UPWpfIpcDj LvMKX6FkT1BIW9aVWbyF8buQr n xorldQ4sTkj+XOO2gKTrpQJEX S1sRlnwtWK+RGNoOOG8vVsjTS hlKNTdvU7qPBReE3h3CaQoHoD 1 PDofJ0YjmsC4RZZkxQLeAVIno PSNkP8mollrs5hglfpzXvTmXR TnQDi0XDl7GQQrdVefRvRdAXY 0 CbI8XAK1lPAlqO6rwAzbitubz G9wOyc+ZuqtbEvmFEC0SSd9O5 CcNyj7XAHghRhcAZ4fcSVuNOb u Kx7epRnbnHasSS7iMWVazxgxz 747ZaBfp1lsMILhqEDxILknHO C9W39hb3L6MFQyBQWgVSP3lZF 4 aR1ejCuqjjmayNEtqQebamEyn LhfYAenUHyoU615FDHwoGnqZh HmPUg3T3WaPzv1YCGhdRozLJ4 n hARzSChbVy0lqFypeNkjGX7nM BIxbrksc242WcJzh9zsEAUkiF QoVLqeOQN1N39oj6O0KHIgGGR w JJU0aAW9rA0zoHoihshixRSyz NwskhKhdOkrRSrgHRtaY742BU YicFqdIuOxsOc7H2YuUyy3EZN z fHiyMW0ksDMcNArsHp8uvXgex RapFY4sKDNhgesee403PtTnr7 uvWCGroPTmRQueRCT5J75hv2W 6 LEAfOZMgLYO4fIV6cO6qxRpyp jogbGVmdDsgdmVydGljYWwtYW qvO636VCOulOvfYhCooUnnbsN g WHixIAt3O5SaUzkqhJQ+PC90Y NZcFF30iQXbvWDkf6lymXs3Wx UhJNQuRZB5fXleTVmho4FpMAD t M17znQLoj7X7XKLaaUmcqOXyL hRjvMQ2mV8mINbijpwnb0tqou ejBwavs7uash86aH30P30lBAd p JWCcEORpVHVtJNHmyOfhup2zk G9wIi8+FRLazRW3xYX7eR7hYA CcUuA2SWcxT849IxYmvFXxZoi j o7cgx3hkoOw1PzD4XVSegiMkt RorTTP1p4VrQq58K25lIHxkGR YeCDAwUOQoOSWcoNjurt4maJ6 w Ii8+ANUeiAL5pZF1vV9fDnBsS kT6JIviD259HsAzyVWeAiymR1 6fN4QbiVM+BORuGiw5BTRbbOg s DX6caVLwWNywAt3bCJT8WdWiE jGdAWkdD4AzVROdzkeebbuvkN O7ALNhYEGwlZ57Pu4rpYlrWJA w eIHYzD0bstqwz9akixihNjNtG UWkKJo2CFq8JQCmbHwjZzNhVI U8TfK7TJC9nQChnO6coCennfi g eG8vP0CdFJJxkygmQh21hH6zD mRpPsN7NAzaTpy+F5rFZ72TNW PGYICHGR1XPQWBLHsUSrhqhJX + WJTsARD1qMpoYJoiAZLekG8hV KIuT5h8BrUxVdD9BXilE2EtMQ KgnqmlJe49sH6vAaAeNrK6NFj u O5SladF2LCFjfESfTNlqKSS8Z 06ve5S3CGHgBCSaHMB7gTU2wO 1hbGlnbjogbGVmdDsgdmVydGl j BBfjAVdaX352GQYmyBfrQnTrN mC7TbR7STX9C7NuDnf0YGCpyN vpIF6byHRjVJtwGo4geCuhhSp g SS1bCSGoacbxQURcqR6qRFDyu GSmcUnhDZ8lNXTtoqrwo073Iu XxERE7GCRfuXFpX9KmkO1vAlL j HMVoFVGaZ1KugMSaRHbyC853J LocGkS9CQMshkRnB2PkZPCqnG srTtX3p4P8Ej8bIKUURSMbjwt v dGQ+FNFpFFS1pYexMTocGBNnt C7vSZMwW5o0XiYqHdE9PPnkR9 GaHYLsnprhTc70yE1vZcHlOoB 1 YRstU1VffiE0XYWqpTKaLFthC JC1F03ho7T1UWEcKNTpEZU6bL L6lH2hrStgsjogbRNpyOlmzjA y bYlhILiuDFnsI287JYHrfQeqO kZFTUFMRTwvdGQ+CBZpMSF9rB gpTQphLGXisH7yROXhG1u0QvF w CoH6PTzrO0YuCLHylnhyBe69i P2zTkPzKvG2OVvsK5GmvlO0YM TvuCGnOFizDBJ7R43be0A6BUP w HFSbBCF2lHP7tD6rnUlbjexmd GVmdDsgdmVydGljYWwtYWxpZ2 82GSDngOqoYq3HQF58NL87P7P y PjwvdGFibGU+PHRhYmxlIHdpZ KWuZSzoGSLgVbSyrVlnGS1gKj 3aJZWvNTXncTdfmCXkGbRlw8n s PBXcGTsdMT0osXnzY4RulVC6D NUzo8u2Il22R76bN9SgoZH+PG TvwTI6kFK4dK8lAjTvQcV1ZVu p Y026SnOrsCEqPkxfh8wuw1qwo Na5TtMnPCRntzSpwLnpCRD4v2 FsNw57N81lJBorYHYhQDGcAXF i LTKfbCeyxl4hhY0rOu5+PGNvb DZ0vSD4qN7yVoPbLpB8STjrV1 76RnVngOKcDecuW09pB5XniXT + AHIyBpm7UNMriXvqNI9wyDMfG MqgIn7fFVR5TcNmNwLyEDlbP5 EuVAHoszoznsrfcGG3NEErGAJ w dU86Ld6jsRjwRg7rXOMzNXY2T EFywTWpV8FnhD2iIvRxRZItOU DiN5TggNJqAYlqP068GVhfHlO 7 ILQvvqMmD6WfQVItfAirDiG3v 6C2Fj5PqDkwmVDsHR2xWfHyOM z8H1YuKav7JKDoeUjrDG7lwIC k KPazTd2yhTolyCwcOE4hQOYeh nhcz072UrTnw4hvVSYneHHcXH iuYFQ9X70ek6X9NRQrVMWuHLI 7 zBB1cC9ilTotjqhogJMszUhef fPxcNtlDJaqJLgrL418ZSHoyO ptMkPCZpn3C1RfNcg7UYZjnTw s NT1khXLpNHbiVt8gwAyxfAgaW Z9vKJYjcwmjd916IhNom5ccXJ VyaYWjYNgdVCP7P11qn3B7GKU w FZBtJRD8lKY7gP2wyKxbjraxq GVmdDsgdmVydGljYWwtYWxpZ2 04FJJnlVtmLe3UAdz6K5OeAmm 0 VJWrtKkcFA8wbOMpUEjkOp4rq KqsgSgiDE9lKERxigtep762Pt Ydr2dnITKohGBcPNwmRGF7D49 s v1K9FEHdOIHuFGU8mMQ3gG5sn GlnbjogbGVmdDsgdmVydGljYW onBOumP928GZUzyPvpStFzwWG y OjwvdGQ+WM86wg57A7RdIvekJ zz9YSCkGJZ6xMN3xA7lFUSsNE csi9D7sKD2Z8YyyhAakw1bh8a s YXB (more content not included)... Normal [facility] ED Clinical Summaryon 2023 ED Clinical Summary [facility] ? Urgent Care [address] [place], [place] [id number] Clinical Summary PERSON INFORMATION Name: BARBRA CLAROS Age: 28 Years Sex: FEMALE : 1995 MRN: Acct#: Visit Reason: UC - Wrist Injury; RIGHT HAND, WRIST PAIN Arrival: 10/18/2023 09:49:58 Discharge: 10/18/2023 11:14:00 LOS: 000 01:25 Check In: 10/18/2023 09:49:58 Checkout: 10/18/2023 11:14:00 Address: [address] [place] [id number] PCP: Provider, None PROVIDER INFORMATION Provider Role Assigned Unassigned Dalila Cotter ED Nurse 10/18/2023 09:52:49 10/18/2023 10:38:20 Juan Santillan PA-C ED PA 10/18/2023 09:53:30 Tova Parsons GAS USAGE METER CLERK Nurse 10/18/2023 10:44:12 VITALS INFORMATION Vital Sign [...] with Orthopedic With: Address: When: Provider, None [address] [place] [address] DIAGNOSIS: 1:Right wrist sprain Patient Understands: Yes - Patient/family/caregiver verbalizes understanding of instructions given Comment: Normal [facility] ED Patient Summaryon 024 ED Patient Summary [facility] ? Urgent Care [address] [place] [id number] PATIENT DISCHARGE INSTRUCTIONS Patient Information Name: BARBRA CLAROS Age: 28 Years Date of : 1995 Reason For Visit: UC - Wrist Injury; RIGHT HAND, WRIST PAIN Arrival Time: 10/18/2023 09:49:58 Primary Care Physician: Gerda Ivan Attending Physician: Juan Santillan PA-C Comment: Patient Education With: Address: When: Follow up with Orthopedic With: Address: When: Provider, Gerda [address] [place] [address] Wrist Sprain, Adult A wrist sprain is [...] health care prov (more content not included)... [facility] XR Wrist Complete Righton XR Wrist Complete Right EXAM: XR Wrist Complete Right HISTORY: Fall/right wrist sprain COMPARISON: None. TECHNIQUE: 3 views of the right wrist. FINDINGS: No acute fracture or dislocation. Soft tissues are grossly unremarkable. IMPRESSION: No acute osseous abnormality. Final Dictated by: Joel Mackenzie MD Dictated DT/TM: 10/18/23 10:51 Signed (Electronic Signature): oJel Mackenzie MD 10/18/23 10:52 a Technologist: LT LEIF [facility] COVID-19, Rapidon 08-15-2023 SARS-CoV-2 (COVID-19) RdRp gene MARICEL+probe Ql (Resp) Not detected Not Detected [facility] Comment on above: Rapid NAAT: The [...] management decisions. Fact sheet for Healthcare Providers: https://www.fda.gov/media/826073/download Fact sheet for Patients: https://www.fda.gov/media/288642/download Methodology: Isothermal Nucleic Acid Amplification Specimen Description .NASOPHARYNGEAL SWAB [facility] Flu A/B Ag Detectionon 08-15 Flu A Ag Detection Negative Normal NEG [facility] Comment on above: Result Comment: for Influenza A Antigen Performed By: #### U MICAO, UAX #### [facility] [address] [place] [address] [place] [address] Wheel Loader Operator: Lakhwinder Tim MD Flu B Ag Detection Negative Normal NEG [facility] Comment on above: Result Comment: for Influenza B Antigen. Performed By: #### U MICAO, UAX #### [facility] [address] [place] [address] Wheel Loader Operator: Lakhwinder Tim MD Portable XR Chest AP single viewon 08-15-2023 No acute process. [facility] EXAMINATION: ONE XRAY VIEW OF THE CHEST 08/15/2023 4:54 pm COMPARISON: None. HISTORY: ORDERING SYSTEM PROVIDED HISTORY: chest pain TECHNOLOGIST PROVIDED HISTORY: chest pain FINDINGS: The lungs are without acute focal process. There is no effusion or pneumothorax. The cardiomediastinal silhouette is without acute process. The osseous structures are without acute process. [facility] Yair Clinton MD - [...] without acute process. IMPRESSION: No acute process. [facility] Radiology Study observation (narrative) [facility] Portable XR Chest AP single viewOrdered By: Yair Clinton on 08-15-2023 [facility] Work Phone: Rapid influenza A/B antigens on 08-15-2023 FLUAV Ag Ql (Unsp spec) Negative NEGATIVE [facility] Comment on above: for Influenza A Anti gen FLUBV Ag Ql (Unsp spec) Negative NEGATIVE [facility] Comment on above: for Influenza B Anti gen. [facility] [id number] 08-15-2023 SARS-CoV-2 (COVID-19) RNA MARICEL+probe Ql (Unsp spec) Not detected Normal [facility] Comment on above: Result Comment: Rapid [...] management decisions. Fact sheet for Healthcare Providers: https://www.fda.gov/media/851159/download Fact sheet for Patients: https://www.fda.gov/media/830656/download Methodology: Isothermal Nucleic Acid Amplification Performed By: #### JERALD KAUR #### [facility] [address] [place] [address] Wheel Loader Operator: Lakhwinder Tim MD XR CHEST PORTABLEon [...] Yair Clinton MD 08/15/[address] [facility] HCG, ,Urineon 07-25 Beta HCG ( test) Ql (U) Negative Normal NEG [facility] [place] Comment on above: Performed By: #### U HCG #### [facility] [address] [place] [address] Wheel Loader Operator: Lakhwinder Tim MD , Urineon HCG ( test) Ql (U) Negative NEGATIVE [facility] Surgical Pathology Reporton 07-25-2023 Surgical Pathology Report (NOTE) Path Number: [id number] -- Diagnosis -- A. GASTRIC ANTRUM, BIOPSY: -MODERATE TO SEVERE CHRONIC GASTRITIS WITH PATCHY MILD TO MODERATE ACTIVITY. -H. PYLORI ORGANISMS IDENTIFIED ON AUDELIA STAIN. B. MID ESOPHAGUS, BIOPSY: -MILD REFLUX TYPE CHANGES. Lakhwinder Tim M.D. Electronically Signed Out [email or web address]/27/2023 Clinical Information Operative Findings: GASTRIC ANTRUM BIOPSY; [...] B. Microscopic examination performed. Processing Lab: [address] [address] Interpretation Performed at [address] [id number] SURGICAL PATHOLOGY CONSULTATION Patient Name: BARBRA CLAROS [facility] Rec: [id number] [facility] ANATOMIC PATHOLOGY [address] [place], [place] [address] Normal [facility] [place] Coding Summaryon 06-22-2023 Coding Summary HTMLBase 64 HyhxlevgEAl4sBz+PGhlYWQ+P H1ROWEeM21gfXBicC5zQ5XLUB lOSywgQVBQTElOSyIgbmFtZT1 kaXNjZXJu IC8+XN5cOOIkUxfsbPVrm0P8q XQ7I75mwl0uXCgulXB8HPQuZe Bsalvde5qlbAa1XEveVdmfCuI t NPFyiZ80YKY7zG19Gr78pHNsg JGch6afpRa9FiToHFErLRX4hA tmFLzlz4AwLVVsS97ejBEqt5O 6 NYGyqLfveCVfEjWekMR2iB2vX Mfsrkiop1dajcouGgq0ld68iB Oxh1A6cAO2G8NpvsT3KMDhsLA g IjlkoZRJqF8rsorcz0arsjnuH fSwEEKsCJg0SVb9QCBgzRnwPm UgCD70NJX4UIBmggSvY0BzUUF s eKngZhX5r6U2Zv9HC7VGTjkvE 1VNTUFSWTwvdGQ+AL85pn07X3 RdBjsdVsx4FSJvYOE1oBC9gK6 n RUSdHPpwb8C5dUU0Q1NaprKov t8px8onCPTeJYlyI76qtDLlq6 E3MDRhmXC1HNSvtNwtByQfpF4 3 Oyc+QPGvbCzth6OqTrqdr3svz 2sbzGn3DspkDITrpfYvaIvcSF B5v7BqIw7ePHMglHR7sOX5nW6 i CmEjZzL8WLdfF786CeVwkAPcW bcfJ55kW1ZysJT+IQHmFlq3NY OfhIwqGI8zJ7MfCGLvjcactCB m dCzsTJ5iWQLjmrjoESVmlU8vQ VQhN2i3NnEjImG3JOrbT8TvJV MdparjSp88dF5lYaIiStY4QZd u X8FdqiW9BIVrrNXaUNurGDW4U 12yo9E7WALxYTNfUBE4aXB2gL 1hbGlnbjogbGVmdDsgdmVydGl j JSkiSOddP598HENnsVcfJuPjY GluZyBEYXRlOiAgMDEvMDQvMj AyNDwvdGQ+GRIwWRJ9aEzeMWN n sDPvKBiaCh2gpLbqmMcePT9wL BInarkhKCWldW3zSIGjyPIvfG elFB3mMNMmagspe767MhLiELY 0 YQJnpLVpI3JjfC5oEtEwRCMgD KEtE6FljJErDOsvQ340KPlnHs U1LUWnhsBeK0HjOTGhfTabViM 0 v5M5Xg1Jc2GcxsybA2WsiGXmB zRsOpubSTw9Q0XhRgppdYC+PC 11LUXuCS34NHs8MJZ1vMdjIYy i WDAwR1LjvW9lQcLcPYOtSBSsL yc+PHRhYmxlIHdpZHRoPScxMD PaXvMdmYjwYO1oIa8hHEWhAEL v pOlglGWuNnHrm1ayEPCpPMnlH Y7iwBodX3BpyMM5DPDhs9a8We 20T80uV1LawJW+XONdcBO9vBH 0 xL0dTdEeSkY5ORiqC155TuNhv IYxHtzar8pzr1jllPw8YaW3DT SimwKoxQkuGIH4h9CwTj35J71 s IHdpZHRoPSIxNSUiIHZhbGlnb i3etA5xDg6+KPOmlUA4aVN2hR 1dBsJwWmD5NDllH312KpBbpFI v Wqujf1efe7pdfVh3RiUoLUBpa wNahZndVLS4s2IoTn91F4HamG sgn3JdRzz0zz39tNLvv0U8nAX 9 L5AvXCBwavqipGWrbDqiDF4xD IUfrzgaMOFtiJ7gVIHhB1x2Xl NmQhS2ZQguP2QcdkD5OJUxwNJ g DTXglIPPnG7eaearn0cnmukkV kFkJKKoIYv0DAh3EKCloUjvQu BjWJX6WcN6BVT7nDXqeN9kqQw n pxzwyJ0qXjc+WOE2qCZzyUICZ Q6gUsjplRH+SJUjLFS6vNoxHW kwMOGpkV5cPZByS3n6SoQqAkR 1 TFqxV8QzzyL7FHMtfMJyKKBsr AGUaZ4gvjxpf2othdzwWtJvFZ IpKDd5LYw9LHNhyLndUfNcGIQ 0 ZuA9KZD1eZHrwT8owNadqldwl G9wOyc+UnfnnXfkVZX5DMj1X9 GsRqe5OJErzIqcSD4lkHWbFQb u Vn6tlMvzaZstTE1rWQQswwois 444JbGtp9fcTHEjdBZrKYgjAA H8N14cc1X8VTGkVRPtYYN3mBD 4 vX6nwRftfhhwsQJknKvdemIes RpvKZogOKqvP996JWZzlGoyEn ZnGTi6K8YgJxn2IYHsaXxbRH2 n eXQqBXoxFm7fyJqcnEafIB0jA VCilaqsc239RqJem5egEAHokV WzWLftGZB1X84az2R6YZClWGK w GNF2dMW8zV5ulFefdcducDUjj XweybJqlDxsIJomDPncQ765PJ LjkJktCxWmlRv7Y6CrHag8YHK z cIibYX4wdHJaGWxsSk2vaGojx MpiXP6jXHPzwdoty184KfVrw4 zcVNDzrNXbCEwdMPA5Z53xy5M 6 TEApWSYxRJS7qDY2jQ8wuTqww jogbGVmdDsgdmVydGljYWwtYW bzZ225PLEccDpcOlFvoIijkgG g FPmvVZc0A6AdBwxdqPA+PC90Y SEyFM17hDMyrYGlg6yryWh1Ws XwVYMiSBU4xLdiCLoai4MdUKH t L03liQBar5D0KAApvLzrhXOaC jCbvUC2vG4aJKebrqptu9faju qbQgmyl4unse43kM00Q80qRNi p EVNoMJGnDKFqSBUecXbqbi5ha G9wIi8+JQTgzCD7vLD3mV8gPZ GyQfZ7XLkmL334DcJjwWIyVkj j o0vfx5dhqRp6GmW4VKDnieZvv QltGMV7q5AzSb84E96nSJkrRU EuOMOqZCLeMYTdhQxgzp2nlZ1 w Ii8+AGVreIC3qZH6hC3fDcTcO kV8HInxB717KhSveFSyRsyiP9 9eL3DnvXK+XXHsQnt8IGEwvNq s HK1rwSCwAEyeRn9qXRU5AbDiB nZcHSxtW8JqLZEhrwgyvhyicK S4ODCnEQEvyU05Py9zqXjvIKK w oBZCfJ7dinrrj9djftuqGkGpK NBtTRw7NGf2ZLDzdWelKkJfBF L8UyT9PLS7sZScxH7tdMmkpml g hI4dM0PyJEMxnohpXt32mU5cL hZmRcL4YHhtDin+G0nPX77XYQ GHUPRBFM5BDOUCOUkYZlslsQD + PFFaQRK1eGloCIlsCXAqbG1tL ZDbX2g7UoZbUkQ2PRgtH8XyHD RqtvayYd95sK0kHbHkRzC5UCk u X9DukyR9IDRbdHJkXZakVCV6I 75jd6R8DJVcPOMuNZA6oWD4eP 1hbGlnbjogbGVmdDsgdmVydGl j ZQtjMBnuL511CLTjwDeaZzGmZ lC3YrI7FMY2N9XmXao8OUKkuN cdMU3qxNMdXBopMs9ijRzmnYt g VT2qHKOghhfgBGMsfM9lRNTmb BHpiCpsVD2uBHMknifud905Tw FvHLK5MPFfjZQvI2JecM3dZqB j EELmFUUaT8AlgRYpUOheX704Q MjrAeK9LIDarzLoL5HiZTHvaQ ryAwO6r6T8Xa8gUtKJAYYdpnf v dGQ+QJFxSUY3wHveVWraOZZsx P5uWYQyP6s3XlNxFvT4GZoxP4 NtGEQkyamdNn24kO2bLxPgQkI 1 KGoxQ6DsjnI9WGJcyPMqLZnmB XI8I44dp3D5ZSHjOJYiEWR8pC V8tM2qjDorzktajGDocPjvsbX y nUyuYObgKYacB554WXNhcPleF kZFTUFMRTwvdGQ+NTUfDOW5lB hgZMtiQJJmhQ9iESFyY8s1TfM w LxT2OPlwL8GrJEEmculdPj70h B2eFoSnGmG8XRlqK8WapsO5WU DfqSXsTFnyNPZ6A98kc2X7AIW w ODHhQVH1mVQ4kQ4rnFjvqersg GVmdDsgdmVydGljYWwtYWxpZ2 40GRRwmPghQdPxQFEhRQ2vjVx v dGQ+AL25wd59T3YfKiueOtf3F LCwZSD7yFR0vB9yGBJnFCsnh4 T5jSP0I9OekoVudm6rz9wmOAH z LIppL83dlCDsg1G3PVXegKB6B YMqvAgeOkVeaD93Jvd+PGNvbG afq2YyXkocm6ebq2gseGj0SxD w OTDuulTlzJmiFKE8p7VdZr65K 29sIHdpZHRoPSIzMCUiIHZhbG adba7pdY2mGq4+PLSytOQ9jYP 0 nJ2mMaHfQaE9GXocZ238JgAgy HNoTlagh1xjp8ygzEk3StBiIE ZzaaLcsZjeUKF4d8VoPd34V4U v jChvr1AdArn8ou84nUElg4V9r XR8Q4WrQCZtjlafuROhrHesNH 2aNPAdxzbeUHAdaT1lNUFtH3q 0 BySiYcE6EDleG1XjnyS7TAOmw CJtDFQzcODZfL4dpkpcs8khuo ypTkLhVFZsORg4EOs4JWNwoJr u UhWfHGQ2UcM3OIT0tCPyoG8kk UptoqdjcT2pKqc+URj2t8rkrH LdWK9riSH1YV76WR77bTZvx5Y 5 nOB1V3XcCEGqynrdnyzhdRM1Q MGoZLMkiT68Nb3qqXzkJg3wWP WfIPW9SFYvzNEbN4NpaK9tQeL j LQTmRMViE6LvzZPyISixH656M VtiIkC1YPCwikFeM5OvAWFslK ooPdW7n9Q6Hy7VVL32QO82IN5 8 fOQtt1M0gCM8X0AlJPAepuvfm imloPM9FUNfPWPrcN67Zx7coJ diIe6gUAJiZWB3UZUkeHOyU8O v dA2bLmAkLKXuAJEoC8LscIDmD ThpD370LCqwRfC0SKNynwUgX2 UjTFDlcHleYiJ4n0V3Gv5GPk9 6 AN17RA76mFVxl8K4zQN6V0QrO WXxbgjscnvnoDR7PMYcHMBveO 39Ec9esVddZc2yKYLqFYH8XKA p aCMjM3HopG7xOxOmTEQrVMYfC 9GhnFAaWFjuU560PFtcJqW3PB IyjyCsO1HqQONrkDakSpZ1v5U 7 Zd7LHYkdzcw1C8HdIkatuRX+P G66AUXtDH48wIQseERhk3exwY x2WxEaYCTjGQG7cJrrZLjbc5M k ZXI (more content not included)... [facility] Coding Summary HTMLBase 64 YspcwhcrHPa5sRl+PGhlYWQ+P F9GEZOjQ76pcUVzlU3qA0CMPN lOSywgQVBQTElOSyIgbmFtZT1 kaXNjZXJu IC8+KE0wEUCzQyijqETfc6J8m NR3X44dpo7zECzwsZV8KNWbOg Abcuemf9szfOb7ZMraSuwcOhH t XHGawK12LEA7aV98Se15yOAwh YJwb1jcgGb2WfWfAWAjGHH9kG avZZuna2WiZQSnH66pjKMhi3D 6 NCAqlZieeKXzAuIgrHR3tB9sG Vtcbaejv5fsxwwbIot1mb38hO Aam8G4cPV5M1LzwnI9LUAziZP g LkaomPTIwK8sdxehk7jhfsdmJ uViUVRaIRf3ABx5VIGouIflOm SoJT04IQU0MFOscpFiX8GpEYD s wWzgWmA9w1K2Cl6QS2XCIofjP 1VNTUFSWTwvdGQ+PX13wk97W0 JfFahaSbq0VQWrSRS3wDW9yJ0 n ICXiWEsbk3V8oZX4Y9SkcfYem r8pk7vqLVBcMPgfE85zfRYhj4 J4FRQtmHV3ZFGerVztHcIsqZ9 3 Oyc+SHVowMtoq7PaDrawc3agc 4esrHz1BothAFEavhIxaUuuQO K5y9VdBo6bGKBcoLB2xLX4kZ3 i QgIcWaB8SIvlW926LaWgbJMuW impI40hI5MzuFS+NRHgBmx0IL GbwUiqKA4gF7BzDHBawiekdMO m dFkmBC9yWXEjjkbsYQTczQ0kZ EThR4s6EgBaNcH0URohZ4IxDX VkybhbXs58wX1hDfWcFdB5NUj u R8AnuiZ8SHAwqRZtOPksLIV6Y 37hh9S0XGGfOKEeCVW6jBG4dQ 1hbGlnbjogbGVmdDsgdmVydGl j KLqqKMhqW504BAHucHvxSwKvW GluZyBEYXRlOiAgMDEvMDQvMj AyNDwvdGQ+YQIkHQM8kKzwZGN n zOHaWOeuEi9zbXjtkTetOP4iU QOvzognQFBftF2hXNDvcQJpdE xoRA7mCUPujewzp832YsKuFMI 0 PPJhjQRaN4QymS7bHbHrDNUsM LGyC8NwdXKnGAuoN479SMbrXv P6KGYefbNiF4XwTSHiyVefMsA 0 v1R3Jt2Mi5BocaxwH7EhkVBcM bIaGdezHBg7H7RdVqikfJB+PC 01EMJzRW02BVx7ZEV4xUhvFIt i OUNhC7WukV9lZcKuKUTwTOWjM yc+PHRhYmxlIHdpZHRoPScxMD LkYrOgaEtaPE1jHq3zTDYoVMJ v uEwxtGUgElXdu8txVTDnFKibG O4szGudX9FlrZN4XJCfs2q4Ya 10Q66eF7TsnIP+QPRylAJ0dBX 0 rJ3oIfJyMcR4EEpnP463XeXaf CLkXrzpn6rjj5ejwFl0UlN9XA CdsaYamFvxGSH7b9EcKf00U02 s IHdpZHRoPSIxNSUiIHZhbGlnb o7diO2gUt2+OUEzpIP2vWQ4lN 4jAnFbBrT9PAubM916PeYigVH v Qxbbk5law2olxXk2KyAjYTYcs rMoyGqhANQ2e9CoMm85H0TymT oea3BiSmo0gm37xRDeb7V2aQL 9 R0CtBNIetkaupDWtoYspFV3sB DYfluhfJWZsyZ0pCIVmH2x6Tx UyGpB9VKqwX5HeptU7NIJlnMW g BMZhwUVXyO4jsssvq6qnvcwuB eNyNZCsFLf1FIf7ROBmaKhzXc HeIZL1YzL7OZY3zOAfgU1tmIl n dfdpaD6hCia+PGF0hVNvjRKFA T7gLrfudZL+ZRIgEWL5kUiuKW khLUNrpD6uXJTpY2p2QoVmInA 1 WRecS2LkhhH0JHPzvKNuASTnh AKHgN6rdyiyx1nvofgwLcXtGI CoJHx0VHn2PYXaiFzzVlAsVQY 0 YiD1JEU0iBRjuF9bcHcmnniua G9wOyc+UpyovYtgUAH9MGo5W1 VaMiv9YSHqxSoaMV8ysDVwJBb u Gm0plPhfdOayCE7uKZSgecoln 105UqAuu8raOCQdaBChRQymSS K8Z04kc2I3UUIcFTYpQGH9tXE 4 kV4vvMfwzseqlDBrePupbrEbd VciDFrqCYzjD606CZPyoZxjLg AvCWc8F7OfIpe7BRJmeIjnHC6 n tHTeOTudRm2xhIqreHfoMT0oG OTzdfbeo178EmUsd4onMFMnvL UvFLaaVWW5P47ht3N3MSCrTXF w UVO8zOQ5qK8mcSrolnzojSDmi WtjinTalWfmUQjbACnvP025NE GqjKmeFhDmnKt7T8XhYls5FGH z sRwlGB9atYDnELvuXl2wpEibq SqtFX0cJQLugblxg259WiWij3 ymKFGqaMIgCPtxFTL9I62jx7V 6 IJWsHNQeQBU8yIO3wF5neJkgh jogbGVmdDsgdmVydGljYWwtYW uhW872DCOzbMuiIdHwwWssenZ g MXofFUc0W0XrQatnzLI+PC90Y XOcAF58lRIglFHro8kicKg3Sg HiEGUaHQS0qLxeVIzhf9ToZLO t C46flMVkj5L5OLBznKictKNoG xPjdWH7dJ8pTZxgrhflo0uowi rxKehwc1txdp05wN83V22iPKn p AAJsHDItPYPhUYIefOoybb7rl G9wIi8+YFMgpON1kHJ8aK5fUX VdUiP9WQahB337CpDaeCTwQim j m7mzi0vwjUa7PxX9YCSpryJma NfkIEK1o8ZhFl96X03kIDciKQ SfSUDrRBGaNTRarInier9gqK2 w Ii8+ISQkmWT9pUD7pF6uRpIvJ gO3DIlsX312ZsCarFPrNmxmF3 1xA5ArfJF+WHDjCsu2BMNdoAk s HO8bsAQfMDqzRp8gDVE9FkLcC pEfEPawA1EiQCEibxretixlvR Q8PYMfGEHpxZ35Jo9ppJktTHA w sBCGmL5mvimcf3ddemnuOyUjM DUdYSm1RKl4OANyaVzuSwDeAJ L1RyS7EIQ6pZLvrV3xjTftpaa g dN9kJ2VbRUUaakhvUi95mZ1jO uPjBfN1DMxfXeu+Z3sPR75BED SSQNCEYJ9NBLRUDTuENkqjyXL + YAPxEFR3sZeiIZveBTBzkK8lC ODkY0h9ZtHwGmH2TYeiG6XgUD RcqageDi00jJ7zUgDqNgM1SVu u F0GvpaG2LUUciVXlWZanPEH1Y 07lk6V3ETNpTBZrHVV5qDB2jU 1hbGlnbjogbGVmdDsgdmVydGl j ZBmlPVwxW220YGDwcOunTxNbO iJ9KiD6AMM9S3RhLmt7GHUvpH iqUF0frUTvARkdZx5fdZntnHq g DS0aVKWrtdkqFNLvfM1aGOZnh FPbwEalUK9vUIJekgyxt789Lx FcJRT5OYKfpJMrD6QyeM9lZaM j DIUxWOZkN5OsoBNaZNjhU029V CudIyQ2NZKmnpScR1GtYESzjU utFpK9o3V3Aw1sFkBNQLEbuhd v dGQ+VHOeLWW3mQanYNevAICdf M9yJFKwF5p9IcIzXeF9HRbtD2 WwNZSlunoySt33iA5qVjAuDfW 1 CNwmR0XmokR4KUZqpEJdSDuuN OD2Z95qj8Z8JHVbHZUeXIZ2mQ U4tF0wkCxieounlUOvtQtqriY y eNdqOOnkGOrqQ818FWZlcJfnR kZFTUFMRTwvdGQ+XHElSSR4qP fmEOesBMUanC4qWUXmI8j2SdR w YhM3CZizL0NwGVGlflsuTd53e Z7yXhJhMjN7LRflQ0VcxjG0ZB EljYJiHKocNTK3W23pc1Y2UIV w RHRiWDR0wAD5aB7ihLzsgpcyl GVmdDsgdmVydGljYWwtYWxpZ2 89JPFmwBolFxNeBBPgNT5iuVl v dGQ+SA76od42E8LwEtgdTmd1J WOuPHH9tQF6bL3lSPSzXEhto4 N0eRD9L8PhpdVrpc3fu2gdGYS z XFwfT23jrILiw1S4EBLznDT7U UWtsXaeRqGyyD38Vmt+PGNvbG dya3GsYdhqu5ogq3wymGi1XaP w HYXcoxIxnOprVMA0w2OzIo18U 29sIHdpZHRoPSIzMCUiIHZhbG amsd9gmP2cYt6+HEKowFS2lOV 0 cX5bMzAxPdX0FHgrJ202RaLuv JPnAchrr1oix5wdhOt1NgXtBI EmspLzbOhtUKK5k8VgWn08O6C v dZvqw3MlInr0qr33cKUky0H9q ZE9T1XvICMapgzjcQItyBnpZU 9sPRJttaryQIFadS5tMEVtQ0y 0 KuKcGpS2MQljC5ExpxY7ITIfi CNkZFRqwRUHmL6xorjfy7xhal cvWeBjMLQgEDk1XNj9VALhdLx u NhMvIWL8IcR0BIK9jVKpwF4ov PuthldafB2zTpa+DUu4b5adzT HrTT5zfZC6QB99RB88gEDig1C 5 eUT7U2AtVOGrgzdfzxykeXC4Y FMaHVOnlO17Ev0fqNnnMa0tIN XjZXU1DXKauGFsF3JtrH2zDsY j KIZiHQTsN6LobFNzOOpzV019B FonZmC0QTAfavDyQ4KyOSPhnI kaLaE5a4D6Uj4IGB75YU95XJ1 8 wBAds8E1uKI0I9VnBEReasjoh gmyoJI5LRMcSTLybN22Wz0cqZ buTe6gRVSjKBN6THCbhGMdB0S v vH8nUaSlXZSkEUAlZ7FfrKQkO UovS322VEhoUeL0MVXmkgBrT3 CnTVNfjBgrMnP1f1M7Oj0IYm5 6 QJ46YJ24pHUtz2L8cTZ4C5DjP INnlkhrjkugyCZ0LWZgXVUywS 08Lj3hfZfjHd6gGJRnGAE6ZBA p oHMoE4EwaR7jXoNsZGPoNUCoA 9PmbTMqRNpoM166BGqkSmP7VV RfekArR0HdBSCobMmbShM4k7R 7 Mj2VIXozabx7U3IcWevlgOV+P L98KXMzLW81aKYelHEfm9jmkQ d4QmBqGVBdAOI9jBurVBzrr4Y k ZXI (more content not included)... [facility] Coding Summaryon 06-16-2023 Coding Summary HTMLBase 64 YclepaokJVg0uKh+PGhlYWQ+P J5BLIZbD61yuFKfcJ6yE5NRUR lOSywgQVBQTElOSyIgbmFtZT1 kaXNjZXJu IC8+IL8wMOIsApukqRXmh3T7o RK1S70enr9fNBalpZS7PXVzCj Hzjfeyb6jgyJl6XJbsUhmiJgM t QQXmpV87UXW2kB17Jv62qNRbu IGvz3gyrMs1TiEpKFNfHJN2eR fiELwbp3ArFKIsW47faMDhf9C 6 JLJlaLyxxAAhCeHzzWD7fA9kJ Epfvanls7ofvlxdJxc4ch90vF Eyo4P8tRJ4L0QvorO0YRZnfKN g XcwwoEVEzG9epkkrn3qyalskN gXaKRZzDSc1NJw2FMAzvYlxIl LmPA00PKO0NDZfzsHyF2DlWZT s dNbzZdM3f1P7Uy6FX7XLRrfvP 1VNTUFSWTwvdGQ+UU70ne82F9 HeQldcCno3VUAoTPK0rMN6wY0 n UCTrKVscq2E3nAK3R1IgbgUii y5mf2geMNGvPLwyG48dsGDco9 O2SUKjwOY5BRPicJitErOtpR5 3 Oyc+HBOzfGtqb7YyZinta3dtk 8vhbQt6ZqcgPWVuoiVziZtuSI W4h2EqBv6lFPEhfBY6cEM2cZ2 i HqEnVgY2DBwmI589AbVdfROgT tsyJ14jY7IenYF+IKFvGlb8UV DhiOztNR4zY6NyXUBlfjiljDA m vNjfRE3yGWYcqumpZGGnfF5cX EUaB4d6XaVmSmA0PGnpM8YaGX YtfsheQp79xB7sSpLuXbD6ZQy u B9TustG0MFOlaETrNTwgBLI1R 25lm5L6DXTvJWUjQNP4eBB3vZ 1hbGlnbjogbGVmdDsgdmVydGl j YGcnLWkhT792NAEoxWovWrMbR GluZyBEYXRlOiAgMTIvMjkvMj AyMzwvdGQ+IBVtTKZ4lTpxRCW n kGEvFBrlTy1yvSpswNrtRV6wB TByomxqKBExoK3qIOIhfQOygD mxGI5mKEHddlcxb329LhLoXYW 0 EQLxcGXaH8NehV5fDhKuZSRhE FNjI4NtwMCaXYdgA669DZqwUy A7MUMryiTeW5OyDTKkhZnqUhW 0 z7Z3Kh1Ke3BeabehY6SkbPYmU dHpIpqfHUh4J4AhAxrehSZ+PC 19ZGLeJK72ZYu8VVT1vQspJPk i WFNhD1WcwC6sLzYvWEImILTcZ yc+PHRhYmxlIHdpZHRoPScxMD GtReExeExmCB0zIj4zQXOeHPJ v tKjaxDWeUjCwe4tqGDQrXKyiB U6vvGvpW9MlwKT8SKMnn3z3Tg 26V59rI0QpaYK+EXKfbQS2sSW 0 sC7fRoStFxZ8URsaS854EwVct XToBnllx1juo3fzcAs4JhJ3WP HogwEpmTgeMFH5h2XlDp51W91 s IHdpZHRoPSIxNSUiIHZhbGlnb u8qbM0jMs0+AJLsbLP0jMT4aS 2wRcPsErC4ZTlpE424YuFryML v Isepz7lwj9dwkKp9SwBcPAGhw xWsgUwzARH6r0QuGd50T7AfuH myy7MsDzu7hb70hBAww1C5jRI 9 Q1UmOCYaloxlsULvoMakQP9zY VNwhxfxHRHntB2nNAIyQ2c5Xc FbKnD3WSjmW8BelcE3BAGrcIG g ZEIwqHQQjN7hablwk2obidijC dAdHWJrVXl1TFz3BGOhmTdaKg EmCQJ5IyO2MVH3oFAigW2rkBz n xyomnM1fKdf+RWX8fOFqbLACI P0xLrsxnKA+UMEfXSZ6bRyxHJ hwVSJbfP7jBBVtY2g6HtVpJkT 1 AVqvG0HmawQ7XTIdmYRzNPRhd DPQdO2iptssp6krljjiRfVeIZ GjLTg1JAm5JPWdfKpgCxGbEPJ 0 BoN2QYL4kIJdpM1fbKmapcxqq G9wOyc+FcmzrFmpNDR1ZTo3L1 UpEnp9SRTcpKrpFM0piTXgTDt u Rq6boMyppJigGW5fAXQncmchw 257YmLwh0ruJKIfrETfNFtyQU M9S73ny6N2CQFoSPDcOML9qNV 4 gG8fxUvacgohxXLtlKdrebHkf DceAYzwOGiuV786YTJnnNblWd SlHPd9K9FmLsh6PQBhhNbbZQ0 n bXDhREdwJf6qwFpanEzoPW1jY AJrxdwzd436QyNht3awZAUdlV ImBBxdFFZ6O90re4B0VJEfZRC w NFT0mJT2zZ1oiSnmqplilXSey YqkrhIlkBecUZepLZoeO139BW NrvAidSbKkmZk7A0QnQss3FHX z wImnAB2ujXKtPZhgBi4svJzme ZtkHR0jUGNrdqkwv664TzPuf8 phBKFcjKIkGYzcVMM9F25mu2S 6 DGKrQZGlQMA9qNV6sL8gyEkxp jogbGVmdDsgdmVydGljYWwtYW riT359TZXdrJovVlQvrRnrgbG g JZgxMNv9J7SyNwrhxGR+PC90Y KGiVP94jLJmjVYsk6lqkNi4Lo UkKXStZSG4uAumENgtg1IlTNQ t I66bqUTqz0L7AKIrpUucvAGiH hCegWT3rF0cKEqdcxxgo6wgwn ydRwnpf7ejrf16gT08B89rNCd p WDEnQDYxXOOsYWGjoWvpqf7fe G9wIi8+YJVvwQG4nOK4lF2wDG EoZgT2JNafF700HgTquYJfOsu j n9jqk9mhyHy1FlY2HYTkshBcd IbzGEZ5x7UaIu13O60kKPcrXA XcGLBwMPOnPGDtpSqtci3gdR1 w Ii8+JMCjmRK8rEB9tZ4vNeYqP rT0HMyhB361BkWtbIXuLiweV6 0uJ2LfhGX+QJPkPih2CTHmvTf s CI2ytZKmUSnsZk4cHBD6DwPpH yFfVKqiK1YdRVBivzypepnrpH W7WECcCKIzwJ11Ao3vnTdgFWK w qJIPuO6erufms7liliohQdQlY PHcVEl4DNe4KEJebMbkEcVnDL Y4WfK3JIV4zJSdlM6duPiggiq g gT2rJ3QaHJKbhwfxCm96pK8vN iDqCrD0ZYidOit+G7tQE31GCO ZKCFQSOH5LRLVSTAvGRzseoVE + CZSmVTO7nXvwBXaqVXKfqU1nJ QQrL0d4SrPnSmO6GObhY1PmIB RckolrDd66cZ4kHrLrUfX7AHo u A8XbkrF9MRQcaYWzEFjtEGM8M 08ku2N3AORcDOYaYOZ4zQY5pW 1hbGlnbjogbGVmdDsgdmVydGl j ORbiWSzfP330MMCrpKnfTwIcW xH2UwU7GAE5Q7HyHhl6ZQBsaX ykHQ0vtFPdFJfcKa9hxSdftOo g DF8bKDGvbcnpPOFcjX8lAYFrg EZkzMijFS4vAHLarbwob754Jp UzWQG0YWWkmNSpE4RomZ8xByJ j FFIfHCQtY2EdzFPiFUdmC738J QjzSjI8ZMMtlmXuX3NhHARrsS eiHnV8c8A5Go0iKyKLNHPruyz v dGQ+XLHvQII7cQutNByjZZJmu I6fGJEyK1t4NrKmJhZ8CDjrC4 YjEUFpxzgqVc87qF1uUaAsQtP 1 LOinB1DpxqQ6WBVpyOYgFNwvV TW1W66rv6R9LQUhWUFtSNH5hY W3gU1niMdvmyeghNBlkMixsaP y hSkaACdcXZldD935GCDrbGezK kZFTUFMRTwvdGQ+YXJoRZG3cP oeGMwyAODiaK3bWXTtJ0p3McZ w HgV5RQeiW3YxYFSqkrtySm60x U6gNgBsQjN6QXvfZ5VusrT5FX XkvJOkLOpfBGU9D82km1S5BGS w QXPyYEM8yBN7iD0hgUiyyhvvr GVmdDsgdmVydGljYWwtYWxpZ2 60GPOgyCarUv0SSO48KG38K2B y PjwvdGFibGU+PHRhYmxlIHdpZ ZHtESfuZDUdJpEufYakOX6bJz 2eUSQaOWQcsIewjWIjHdFoc8l s QARlAKusZH9vtPmoE3UvgCP6J SGpi1g8Sl85E18pE8CjnYU+PG InoAF6fVT8lS5gPiHyWxE0IEc p Z434DvRkzOAsShtsl8rmt9smg Yd0YsFnYFAzdwJskYznWSM5q9 SlCo66E92pILvkJIUqMOAgOYO i IRJkfLtxty3ffL9eQn0+PGNvb UU0tOB4aY6sSiXeTvW7LWeoS6 27LmVwiZLqHvlvS46gP2ZppXS + CTUqXjp2KECwdUqvZM4fsAIoQ WhfJt2tKJE3SuRoNfVjRVfnF7 QmWNVmzesmqqitkYA8BVXvNOC w yE27Ve3juJhnOx7jZBQtCEI8K YGgwKDcU1SjtR4nUoEbZLNoJX RnS4AxxPSrQEsnY276ZCtySfR 7 IZFieyDqJ1XePXBaoXxsEcI7y 0S3As2QyQzhcNBsBW8jIoIqTZ l3M0XhKjx0LXOnzVuzDE0vhJL k TTatWt0fwSfbdGpzHG0zUACig ftvi275ZySxm9qcQYLifTDrCX dvSOE0R07ey3S0BKKdTMJcHOP 7 dPB2aU9dcVxxpyeqzEZykHmxf gIimOopQEciHKevM129UQPiuX rwKnXUJve9V4CpQjo8ITSysKm s RS2zsSFpEFbsGy1teSiruZlqF H1mTWVofwbol705WuMpe0ehQS IygBKoSCfrVUR7W26os6D2NLO w UYPwSAD1oTN2jW1kxOeprioxy GVmdDsgdmVydGljYWwtYWxpZ2 56OJJxiXmyXt9IExo6I7YrEtf 0 BKQgyHrvLX7vdGEzHXzeTg0sg QuhlYxwMS1dLJGegbstk118Kw Gae0hhTBJawERgUMpsDSY8T15 s t0E2SHIvIHHfVTI7qCC0pC1rc GlnbjogbGVmdDsgdmVydGljYW dbZFdvP236CREdsTgiZnGlsHV y OjwvdGQ+SO38tt62X8JrWpquY yc4DMLoQZS7oTY6oR6bBYVkCD eue0Q8qGO1G1OvzuVfjw5er3e s YXB (more content not included)... Normal [facility] .Auto Diff 06-09-2023 Auto [place] % 8 % Normal 06-30 [facility] Comment on above: Performed By: #### 1 [id number], 82066193, 0943332016, 3355495, 3140660980, 4002714984, 2602970127 ####[facility] (DEFAULT)[address] [place] [address] 67467 Baso Abs# 0.0 x10 Normal 0.0-0.2 [facility] Comment on above: Performed By: #### 1 [id number], 26378824, 7710978690, 0177852, 2145689678, 2496603755, 6659998133 ####[facility] (DEFAULT)[address] [place] [address] 46084 Basophils/100 WBC (Bld) 0.4 % Normal 0.2-2.0 [facility] Comment on above: Performed By: #### 1 532484547, 78878090, 5419571707, 3840749, 5280123473, 9568041943, 9125993888 ####[facility] (DEFAULT)[address] [place] [address] 82039 Eos Abs# 0.2 x10 Normal 0.0-0.4 [facility] Comment on above: Performed By: #### 1 149214731, 14306304, 7602873686, 3536078, 8788487976, 3214477288, 2014398133 ####[facility] (DEFAULT)[address] [place] [address] 41641 Eosinophils/100 WBC (Bld) 2.4 % Normal 0.9-4.0 [facility] Comment on above: Performed By: #### 1 931909625, 97814446, 5671039209, 3664332, 2739386039, 6471619027, 5073555559 ####[facility] (DEFAULT)[address] [place] [address] 39632 Lymph Abs# 2.3 x10 Normal 1.3-2.9 [facility] Comment on above: Performed By: #### 1 644847534, 09506127, 0334271116, 5706028, 9507574857, 4186490417, 1897529235 ####[facility] (DEFAULT)[address] [place] [address] Lymphocytes/100 WBC (Bld) 35 % Normal 14-48 [facility] Comment on above: Performed By: #### 1 284660659, 94959047, 3320260378, 0735522, 8348983102, 5685287769, 3836589312 ####[facility] (DEFAULT)[address] [place] [address] [place] Abs# 0.5 x10 Normal 0.0-0.8 [facility] Comment on above: Performed By: #### 1 124355777, 41679825, 7373492156, 6112781, 3142714496, 5286137198, 2764213673 ####[facility] (DEFAULT)[address] [place] [address] Neut Abs# 3.5 x10 Normal 1.5-9.2 [facility] Comment on above: Performed By: #### 1 768832420, 54660167, 4017296976, 2661236, 5082902446, 3775719139, 2482808074 ####[facility] (DEFAULT)[address] [place] [address] Neutrophils/100 WBC (Bld) 54 % Normal 44-88 [facility] Comment on above: Performed By: #### 1 132288497, 51770465, 7316113384, 4111580, 8174144015, 0560741112, 9273975411 ####[facility] (DEFAULT)[address] [place] [address] CBC w/ Auto Diffon 3 Erythrocyte distribution width (RBC) [Ratio] 14.9 % Normal 11.5-15.0 [facility] Comment on above: Performed By: #### 1 852861031, 48119353, 5024444813, 1620144, 5079663122, 8304455663, 3604004974 ####[facility] (DEFAULT)[address] [place] [address] Hematocrit (Bld) [Volume fraction] 34.8 % Normal 33.7-40.4 [facility] Comment on above: Performed By: #### 1 578913118, 75764816, 4022935889, 7705014, 8954157056, 8686796046, 4554695861 ####[facility] (DEFAULT)[address] [place] [address] Hemoglobin (Bld) [Mass/Vol] 11.6 g/dL Normal 11.3-15.9 [facility] Comment on above: Performed By: #### 1 117746608, 18256065, 9664811224, 7143384, 9488057298, 5746347071, 7436682333 ####[facility] (DEFAULT)[address] [place] [address] Man Diff? Auto Invalid Interpretation Code [facility] Comment on above: Performed By: #### 1 263975617, 51453247, 0783870842, 1483216, 7123194361, 3235020616, 8610788870 ####[facility] (DEFAULT)[address] [place] [address] MCH (RBC) [Entitic mass] 28 pg Normal 24-34 [facility] Comment on above: Performed By: #### 1 118439127, 80974871, 2391543120, 6422272, 6331389004, 3499589477, 6106583930 ####[facility] (DEFAULT)[address] [place] [address] MCHC (RBC) [Mass/Vol] 33 g/dL Normal 26-37 [facility] Comment on above: Performed By: #### 1 297573204, 70605444, 0224217021, 9027404, 3877916693, 7413537558, 6579229033 ####[facility] (DEFAULT)[address] [place] [address] 56784 MCV (RBC) [Entitic vol] 82 fL Normal 81-100 [facility] Comment on above: Performed By: #### 1 016119058, 22283926, 3287136244, 8509749, 2161766797, 5504328318, 0518400293 ####[facility] (DEFAULT)[address] [place] [address] 52698 Platelet 227 x10 Normal 138-427 [facility] Comment on above: Performed By: #### 1 607315035, 99817174, 2111195153, 1973836, 5004516672, 1364761920, 3236822592 ####[facility] (DEFAULT)[address] [place] [address] 72385 Platelet mean volume (Bld) [Entitic vol] 7.8 fL Normal 6.3-10.2 [facility] Comment on above: Performed By: #### 1 747228345, 14752768, 5361678661, 0000177, 2090520593, 3649874533, 3478534181 ####[facility] (DEFAULT)[address] [place] [address] RBC 4.22 x10 Normal 3.70-5.30 [facility] Comment on above: Performed By: #### 1 058874984, 43699142, 8726552459, 6794924, 2511247310, 3491624613, 3231531207 ####[facility] (DEFAULT)[address] [place] [address] WBC 6.5 x10 Normal 3.5-10.5 [facility] Comment on above: Performed By: #### 1 666287616, 48065905, 1515352055, 1696714, 3286983460, 5085295642, 4943479063 ####[facility] (DEFAULT)[address] [place] [address] 96062 CMP Standardon 06-09-2023 eGFR Non AA >60 Invalid Interpretation Code [facility] Comment on above: Performed By: #### 1 241101571, 43909452, 1397086405, 0193389, 6884842293, 5028465677, 5118475609 ####[facility] (DEFAULT)[address] [place] [address] 97866 eGFR AA >60 Invalid Interpretation Code [facility] Comment on above: Performed By: #### 1 953897294, 10515400, 5682327770, 0480862, 5797825264, 5502190882, 9722445811 ####[facility] (DEFAULT)[address] [place] [address] Albumin [Mass/Vol] 4.0 g/dL Normal 3.5-5.[address] [facility] Comment on above: Performed By: #### 1 052017078, 50682096, 8087460921, 6218740, 8867440288, 8043218093, 9802851482 ####[facility] (DEFAULT)[address] [place] [address] Albumin/Globulin [Mass ratio] 1.0 {ratio} Low 1.4-2.6 [facility] Comment on above: Performed By: #### 1 127308197, 63399620, 2810887602, 6648196, 9039358133, 6626348790, 8816161048 ####[facility] (DEFAULT)[address] [place] [address] Alk Phos 60 IU/L Normal 32-91 [facility] Comment on above: Performed By: #### 1 575196857, 69744144, 6743039646, 7407314, 8718123557, 2227673830, 4378869638 ####[facility] (DEFAULT)[address] [place] [address] ALT [Catalytic activity/Vol] 25.0 U/L Normal 14.0-54.0 [facility] Comment on above: Performed By: #### 1 853345543, 04469099, 2224155410, 4035486, 0734539055, 7592145794, 3774715519 ####[facility] (DEFAULT)[address] [place] [address] Anion gap [Moles/Vol] 10.8 mmol/L Normal 5.0-19.0 [facility] Comment on above: Performed By: #### 1 750120353, 79309123, 6129198820, 1918859, 0678269872, 5860930323, 1843208582 ####[facility] (DEFAULT)[address] [place] [address] 80339 AST [Catalytic activity/Vol] 22 U/L Normal 15-41 [facility] Comment on above: Performed By: #### 1 589869920, 40816168, 4200664889, 0706672, 3639747856, 1628986338, 2901286565 ####[facility] (DEFAULT)[address] [place] [address] 55640 Bili Total 0.4 mg/dL Normal 0.3-1.2 [facility] Comment on above: Performed By: #### 1 603345233, 99974934, 8331428253, 5695678, 7829288072, 1019343246, 5054366360 ####[facility] (DEFAULT)[address] [place] [address] 18481 Calcium [Mass/Vol] 8.7 mg/dL Low 8.9-10.[address] [facility] Comment on above: Performed By: #### 1 475643333, 83001483, 8580745524, 6094969, 3676782748, 6085641756, 9900538547 ####[facility] (DEFAULT)[address] [place] [address] 77698 Chloride [Moles/Vol] 107 mmol/L Normal 101-111 [facility] Comment on above: Performed By: #### 1 932404809, 95910823, 4658648965, 3659125, 1661135130, 6898076181, 7032404776 ####[facility] (DEFAULT)[address] [place] [address] 96381 CO2 [Moles/Vol] 23 mmol/L Normal 21-32 [facility] Comment on above: Performed By: #### 1 829456127, 87904158, 5344466216, 8953771, 0802196868, 8804547309, 5308943571 ####[facility] (DEFAULT)[address] [place] [address] 65232 Creatinine [Mass/Vol] 0.53 mg/dL Low 0.60-1.30 [facility] Comment on above: Performed By: #### 1 910662741, 28566591, 6345492644, 8374725, 5892073347, 9519325001, 3863616664 ####[facility] (DEFAULT)[address] [place] [address] 15150 Globulin (S) [Mass/Vol] 3.8 g/dL Normal 1.5-4.3 [facility] Comment on above: Performed By: #### 1 995676885, 27775734, 1183968656, 2664390, 2144033592, 5130792717, 2403787359 ####[facility] (DEFAULT)[address] [place] [address] 32277 Glucose [Mass/Vol] 92.0 mg/dL Normal 74.0-118.[address] [facility] Comment on above: Performed By: #### 1 087672842, 10857365, 6112521682, 5743169, 7434356959, 6060122380, 5399927282 ####[facility] (DEFAULT)[address] [place] [address] 13059 Osmolality 272 mOsm/L Invalid Interpretation Code [facility] Comment on above: Performed By: #### 1 343836823, 17760595, 6144203035, 2570107, 0235935422, 1155879627, 3988669923 ####[facility] (DEFAULT)[address] [place] [address] 61885 Potassium [Moles/Vol] 3.8 mmol/L Normal 3.6-5.1 [facility] Comment on above: Performed By: #### 1 683180427, 96578466, 1511909708, 5895201, 9484549640, 8807993182, 4636317547 ####[facility] (DEFAULT)[address] [place] [address] 18833 Protein [Mass/Vol] 7.8 g/dL Normal 6.5-8.[address] [facility] Comment on above: Performed By: #### 1 453774159, 00032669, 9681799308, 0579436, 0276830671, 2667692159, 3720456478 ####[facility] (DEFAULT)[address] [place] [address] 67873 Sodium [Moles/Vol] 137.0 mmol/L Normal 136.0-144.0 [facility] Comment on above: Performed By: #### 1 116306591, 81199036, 1365342398, 0854489, 1954337207, 5533680819, 7108817583 ####[facility] (DEFAULT)[address] [place] [address] 28515 Urea nitrogen [Mass/Vol] 9 mg/dL Normal 8-26 [facility] Comment on above: Performed By: #### 1 684430838, 56429357, 8867084380, 5316868, 3771733265, 6780754877, 3772518365 ####[facility] (DEFAULT)[address] [place] [address] 87796 Urea nitrogen/Creatinine [Mass ratio] 16.9 mg/mg High 4.6-16.2 [facility] Comment on above: Performed By: #### 1 175482261, 59964275, 3024380443, 3002623, 2750789104, 3375096324, 3674676182 ####[facility] (DEFAULT)[address] [place] [address] 82030 ED Clinical Summaryon 2022 ED Clinical Summary [facility] - Emergency Department [address] [place] [address] ED Clinical Summary PERSON INFORMATION Name: BARBRA CLAROS Age: 27 Years Sex: FEMALE : 1995 MRN: Acct#: Visit Reason: Dizziness; Headache; MIGRAINE, DIZZINESS Arrival: 06/09/2023 11:32:00 Discharge: 06/09/2023 13:05:00 LOS: 000 01:33 Check In: 06/09/2023 11:32:00 Checkout:06/09/2023 13:05:00 Address: [address] [place] [address] PCP: Provider, None PROVIDER INFORMATION Provider Role Assigned Unassigned Anjel Yates MD ED Provider 06/09/2023 11:33:05 Renetta Stern RN ED Nurse 06/09/2023 11:46:14 VITALS INFORMATION Vital Sign [...] Home PATIENT EDUCATION INFORMATION Instructions: Migraine Headache, Pimp-sx-Njak Follow-Up: With: Address: When: Follow up with primary care provider Within 3 to 5 days DIAGNOSIS: 1:Migraine headache Patient Understands: Yes - Patient/family/caregiver verbalizes understanding of instructions given Comment: Normal [facility] ED Patient Summaryon 023 ED Patient Summary [facility] - Emergency Department [address] [place] [address] PATIENT DISCHARGE INSTRUCTIONS Patient Information Name: BARBRA CLAROS Age: 27 Years Date of : 1995 Reason For Visit: Dizziness; Headache; MIGRAINE, DIZZINESS Arrival Time: 06/09/2023 11:32:00 Primary Care Physician: Provider, None Attending Physician: Anjel Yates MD Comment: Visit Diagnosis: Diagnoses This Visit Dizziness ([id number]) Headache ([id number]) Migraine headache (G43.909) The Pharmacy at [facility] is open Monday through Monday from [...] alcohol and/or drug addiction problems; contact the [facility] 09/01 Crisis Hotline -Text 4HCPX bi 617752. If you received any narcotics, sedation, or [...] and treatment you received today in the [facility] Emergency Department were for an urgent problem and are not intended as complete care. It is important for you to follow up with a doctor, nurse practitioner, or physician?s assistant center manager for ongoing care. If your symptoms become [...] so we can reach you if necessary. [facility] Emergency Department has provided you with a complete list of medications post discharge. 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 Any specific questions regarding your chronic medications and dosages should be discussed with your primary care physician(s) and/or pharmacist. New Medications [facility] [id number], [address], [place] [id number], [phone] rizatriptan (Maxalt 10 mg oral tablet) 1 [...] This Visit (more content not included)... Normal [facility] Extra SSTon 06-09-2023 Tube Collected Yes Invalid Interpretation Code [facility] Comment on above: Performed By: #### 1 [id number], 75774583, 9091641416, 1777962, 0414626070, 4951911312, 2883577304 ####[facility] (DEFAULT)[address] [place] [address] Progress Note - Nurseon - Progress Note - Nurse Patient walks to [...] September RN [Verified on: 06/09/2023 12:29 EST] Hereperez September RN [facility] UA w Culture if Ind Standard on 06-09-2023 Breakpoint UA [facility] Comment on above: Performed By: #### 1 [id number] ####[facility] (DEFAULT)[address] [place] [address] Color (U) Yellow [facility] Comment on above: Performed By: #### 1 [id number] ####[facility] (DEFAULT)[address] [place] [address] Culture? Not Indicated Invalid Interpretation Code [facility] Comment on above: Result Comment: Resu lt created by rule GL_MAGR_ADD_UA_CULT1 Performed By: #### 1 [id number] ####[facility] (DEFAULT)[address] [place] [address] Glucose (U) [Mass/Vol] Negative [facility] Comment on above: Performed By: #### 1 [id number] ####[facility] (DEFAULT)[address] [place] [address] Ketones Ql (U) Negative [facility] Comment on above: Performed By: #### 1 [id number] ####[facility] (DEFAULT)[address] [place] [address] Micro? Not Indicated Invalid Interpretation Code [facility] Comment on above: Result Comment: Resu lt created by rule GL_MAGR_ADD_UA_MICRO Performed By: #### 1 [id number] ####[facility] (DEFAULT)[address] [place] [address] UA Bilirubin Negative Normal [facility] Comment on above: Performed By: #### 1 [id number] ####[facility] (DEFAULT)[address] [place] [address] UA Blood Negative Normal NEGATIVE [facility] Comment on above: Performed By: #### 1 [id number] ####[facility] (DEFAULT)[address] [place] [address] UA Clarity CLEAR Normal CLEAR [facility] Comment on above: Performed By: #### 1 [id number] ####[facility] (DEFAULT)[address] [place] [address] UA Leuk Est Negative Normal NEGATIVE [facility] Comment on above: Performed By: #### 1 [id number] ####[facility] (DEFAULT)[address] [place] [address] UA Nitrite Negative Normal NEGATIVE [facility] Comment on above: Performed By: #### 1 [id number] ####[facility] (DEFAULT)[address] [place] [address] UA pH 6.5 Normal 5-8 [facility] Comment on above: Performed By: #### 1 [id number] ####[facility] (DEFAULT)[address] [place] [address] 35619 UA Protein Negative Normal NEGATIVE [facility] Comment on above: Performed By: #### 1 [id number] ####[facility] (DEFAULT)[address] [place] [address] UA Spec Grav 1.020 Normal 1.001-1.035 [facility] Comment on above: Performed By: #### 1 [id number] ####[facility] (DEFAULT)[address] [place] [address] UA Urobilinogen 0.2 mg/dL Normal 0.2-1.0 [facility] Comment on above: Performed By: #### 1 [id number] ####[facility] (DEFAULT)[address] [place] [address] Urine Source Clean Catch Normal [facility] Comment on above: Performed By: #### 1 [id number] ####[facility] (DEFAULT)[address] [place] [address] ED Clinical Summaryon 2022 ED Clinical Summary [facility] ? Urgent Care [address] [place] [address] Clinical Summary PERSON INFORMATION Name: BARBRA CLAROS Age: 27 Years Sex: FEMALE : 1995 MRN: Acct#: Visit Reason: UC - Cough; UC - Sinus Pain or Congestion; CONGESTION, NAUSEA, SINUS PRESSURE, HEADACHE Arrival: 06/04/2023 10:57:44 Discharge: 06/04/2023 12:05:00 LOS: 000 01:08 Check In: 06/04/2023 10:57:44 Checkout: 06/04/2023 12:05:00 Address: [address] [facility] [address] PCP: Provider, None PROVIDER INFORMATION Provider Role Assigned Unassigned Francia Nation GAS USAGE METER CLERK Nurse 06/04/2023 11:00:21 Farnaz MAHMOOD, Luis Alfredo Mai ED PA 06/04/2023 11:19:15 VITALS INFORMATION Vital [...] with medication to treat cough. May use ljyp-bnf-vtdqpzq cough and cold type medications, but make [...] verbalizes understanding of instructions given Comment: Normal [facility] ED Patient Summaryon 023 ED Patient Summary [facility] ? Urgent Care [address] [place] [address] PATIENT DISCHARGE INSTRUCTIONS Patient Information Name: BARBRA CLAROS Age: 27 Years Date of : 1995 MRN: [id number] Reason For Visit: UC - Cough; UC [...] with medication to treat cough. May use fsie-emy-xipptgw cough and cold type medications, but make [...] Medicines to relieve symptoms. These can include kdyy-bkj-mpjdqnu medicine for pain and fever, medicines for cough or congestion, and medicines to relieve diarrhea. ? Antiviral medicines. These medicines are available only for certain types of viruses. Some viral illnesses can be prevented with vaccinations. A common example is the flu shot. Follow these instructions at home: Medicines ? Take zcri-lnr-yyzjnhg and prescript (more content not included)... Normal [facility] POCT Rapid CoV-2 (COVID-19) Antigen/ Flu A&Bon 06-04-2023 Influenza A POCT Negative Normal Negative [facility] Comment on above: Performed By: #### 3 [id number] ####[facility] (DEFAULT)[address] [place] [address] Influenza B POCT Negative Normal Negative [facility] Comment on above: Performed By: #### 6 [id number] ####[facility] (DEFAULT)[address] [place] [address] SARS-CoV-2 (COVID-19) RNA MARICEL+probe Ql (Unsp spec) Not detected [facility] Comment on above: Performed By: #### 2 [id number] ####[facility] (DEFAULT)[address] [place] [id number] Ur[facility] [place] 023 Urgent Care Record [facility] ? Urgent Care [address] [place] [address] PATIENT DISCHARGE INSTRUCTIONS Patient Information Name: BARBRA [...] diseases classified elsewhere (B97.89) UC - Cough ([id number]) UC - Sinus Pain or Congestion ([id number]) Viral respiratory illness (J98.8) If you received [...] with medication to treat cough. May use [id number] cough and cold type medications, but make [...] and treatment you received today in the [facility] were for an urgent problem and are not intended as complete care. It is important for you to follow up with a doctor, nurse practitioner, or physician?s assistant center manager for ongoing care. If your symptoms become [...] so we can reach you if necessary. [facility] has provided you with a complete list of medications post discharge. 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 Any specific questions regarding your chronic medications and dosages should be discussed with your primary care physician(s) and/or pharmacist. New Medications [facility], [address] [place] [address] [phone], [phone] benzonatate (Tessalon Perles 100 mg oral capsule) [...] Temperature Temporal: 36 (more content not included)... [facility] Coding Summaryon 04-20-2023 Coding Summary HTMLBase 64 GxafuukhJBm6aOd+PGhlYWQ+P Y4PAUEgS02spIKypM6yQ1RSUA lOSywgQVBQTElOSyIgbmFtZT1 kaXNjZXJu IC8+BN0xDPBcGmdddQKos0Y3e ND8S29lei1tUFoheCP2CSUsWb Dgwcmfy0hukXt6HJhbKuruInS t FRBslH16QVC3pG19Fr53mGMvy FUmc6stbZj6QrYhAHFnHMN2sM xyRLxjd7BtCWLeI41kfGIrv9F 6 VJYejLxksCPnQwKsxTT5qV9yL Izsbruaf8accdbqJgm5op15hX Nzi9S5hON3A0OpvaJ6MFHvjPX g FltohHQFnP3thioih3kevjciU tCxGCIpNDj4OKi2EEYfeJxsEz WcLS81OEC0VBNbifKsD2RfSRU s zSonMhV4y3T9Ap4XW9XFNjfwX 1VNTUFSWTwvdGQ+UT69rt25K1 LwLrouXnm3DQJiNYX2uNQ0iE1 n BUHsNKyew0M6tPT1C4BxzxZne i1ke5hxKAXaYRuxP31ikVZeg8 I8UAQeyYP7ZUDygCpvFxNmeQ1 3 Oyc+ELWbrFput1JnWkwat3boe 3bvpAl0OajbDOZepeUrwGgzGZ B8d4CdBa4xLDDyqRZ7mIK6kT7 i SxZpRzK5FUffL656RpXahGXvM orkM19mO4EreUQ+UFNsBqs6OM DuuNciGM4bP6WfYEGtrtzpfYV m sGbpJO2yYNWmlggyWKQfcK0mS BGgP6z8JiDpWfH1URgbA4FnOE BakwobNl81mM6yVqOkHiX6BDm u B1PftlH9MQBfbTZdYYmtEXF2J 65xv8M8HVFsHOEoCOW2pJJ7aY 1hbGlnbjogbGVmdDsgdmVydGl j ZDncYBmcY335CTRibSwsSaGlN GluZyBEYXRlOiAgMTEvMDIvMj AyMzwvdGQ+UGLzVGT0lKtzQVW n wGBoPQahQh6whCdtpMkpMU4rE LZmbluqFQGasN4oLDDkaSNvaH ycEV5bABXyocpdj132DpEkNPZ 0 ILPegZUmC1UplH3yFsJcACCiH CBaE3JtxOOmZAitP869NMkhWp Y6COQludOiA9XlPYStfLugNrM 0 g4L4Gd0Um5BtdlxcT8UlaPTsU qHzEycfEIv4U0JnKuvkfCB+PC 56EQVmHK01YIe4TEP7kAlnCIz i KQGiI6KzrG5hVlOtQWEjNIOiZ yc+PHRhYmxlIHdpZHRoPScxMD OdJtGvwXkvXN1pSi3vRALqUDC v kBgoqCUqTvRmm5amYHLcHBapX Z6vcDizQ5HjkMU6VCMrl6c2Ji 93D34wY5YygLM+ADIkxZK8oVK 0 dN0jKnEhEzQ6VMkcZ226FeUln CUgSbfdb6kij3tcfAs5YpZ1NJ DdrcOidKtdTLM0f8BlJs31R62 s IHdpZHRoPSIxNSUiIHZhbGlnb k9efN6vYc8+NOUvlMX6pIF3tA 0oCmXxMaL6PJtgT117EbGggHR v Ypdoj8hif9rszGj8MjYvOYYvz kTtwQbxBII8n5PaWb75N5WyjU gem0UmWky3wu56hEPaz2U0gNY 9 R1ZrWZPskwozlLZmxYmqCQ7pJ ENxqdcgYJIivR3xZJPzF5p5Gt DwWqE4ARvuN7XaynZ0AKTnaKT g PLGgyFBThE0pazvon1levvkkV vCsWNLyCOl0UBm1BQCzfYgeLq HdHCR4AfP7MAL2eVUqdY5ntSd n xhajlN8kEyl+WXY9zROknCNPV A5cYmthyBA+OUWmYAD7gViwEZ wjVDLljN7gCORxX1j3SpXbYfQ 1 QXdiH7BbbdR1LXDgdBVtDRHlh NMOiW8bguepy7yqcezbOhWeWB NbAKa6MUb1EMMdjUdgQsAwFHA 0 HoU1BIU1mSColR1dmLixcoimo G9wOyc+PakjiIfxURX9PIw5K1 OjHdx7QNZibQcxYH7jnOKyNEs u Hm5mvIedhJdlZX7dDVCajqjmo 702OrLag6asESMcpGWeKNphTG E1D16xp3B4WYBqGDMcPAX9vIK 4 nF7reYcocbklxZPlaYtmasIjr XsjCNtuOSbaN699BHMhlStjHo FmRIt0E9WmFhl2ZQIenMxcZR4 n aFXqBUcyUn5lhSmpcHvePE9vJ XQugthmz843KtJrj2xdIOArtB NpLTgfDTB0D06dk8X2EJUbYCL w SHY2gZT4wQ7joDdrzlyipBUfx BtzjoZwmGdtVVwbVSphB918PJ DlqLaxNnDteTz8D9CtAqt9EIZ z mRcmQM5xeYJnAMswHx2kgXjdt JrzEX5yMJThavgoo726ZyMkf1 otTKTmoBXsQCufNJA2U38ez3K 6 NZJgLWSmJON1rWL9oD3mhSiqx jogbGVmdDsgdmVydGljYWwtYW apQ697XGGamEhlMqJxfOlwnsZ g KWcyZDa8S8AfAwkdtIL+PC90Y CApXT41qCArdEYeh0rohSn0Bj EtNNBjDYJ6xDpaIJxzh8MrMJM t Z26zeTJkm8S0EWGnaVlacMClC gOuiJL5jV2sJOtcdpyhz7eogm jmXosef8tbqw33fB40X41uSZg p EJKoCCSrWBWqFEVmyZiipt8sn G9wIi8+URJgiMH1dOK8wW9kWM RdSvZ4YRkzN133HeKpyAStDcx j h0uds2mgwXj0NnW6IPKbhtJgd AgdJCN8y8RaEv50G84dXTbrYH TtBZZhGASfYLIurCeujn3qnS2 w Ii8+EXTqgCU7oOP7zE0gDvKjM yL9KPglD737QlDvoQQxAkitX0 1yZ3LwbOV+ABNcVeh3KAPiqMu s ER9efTAmEQzeMp7jKNN5CoNhP uHmSYhcM9EgZBDvbkaztffbnZ N8BCRuGAUbeE03Uo5tmUajHLH w aISFrX6wkjzxw1ojffnaRcNuR FOmZFc2IVz4RKMahSwrYuEvOH N1FkM8RVN1lPMxfS0pmAabgyd g fP9rL3ZzYZLbdmdoPg64nX6jL oIaLzN6QXbxOul+J2eJL95IWK QRWSISAZ3CDKMVXLwLPgizdGU + JTMyBSG9tHgyLRooJCFzvO2yE NYnB3z7XvWxUyJ4DEhpC1BdMR HhpwypFq74cQ2gIjIpZzT9OEv u R6FprlH5UUFvaFQpVFoqGTJ7U 11fw8W5SBFaFANsOVA8aNT1yS 1hbGlnbjogbGVmdDsgdmVydGl j JKawAGjcR138DNJtrWyhRgFyP iZ2UqD7FMK6B5EwGmv2YZHdnR khUX3hsJDwRUiaBz6ohFfnaGh g VY3mMBQbapnlYHJjuE3zJZOzq KBfgSswGB1bBDErxcfag053Nx LpXHM0PZMccLKuG5GftJ0xCoS j MPKbESRqO4VlvZHkERrgO686D FygWcB2TRIcvtBeT8YyVMFemG vzCgW3u9P0Dw6gNtKIAHMtxdv v dGQ+CGQlHQY2lFrmLJjoSGBmd Y8yGIEhM7v4ErXrArL9LEwdC8 WnPLCfmsbpLa90lO6eDoDnHrX 1 IXxpL7BvrbI1JPIbzZAfZOyeA QV9M36ii7N5PJOnEMSzSIA6pZ S5aF5wjPegbnbicJHjmEvoerR y qYfzPVlvXDwpI954ISVdsKwbB kZFTUFMRTwvdGQ+WLLrOCW7bR fsIWbnBDGgxX4jZMTuI3c7ZsA w OpX4HCbhN1BtVABsqnovCp92s Y1fQdIbBqW5FUmdJ1QwsdC6BP OtjWDkPVqrQEI2L60yw4A5TDG w RYXiGAZ6fON5aZ3fwYcoavbak GVmdDsgdmVydGljYWwtYWxpZ2 71PTKbcQqhJsTzNOFmUQ4rxMs v dGQ+HH06rg97S9NfIkidZde4I XNjZWQ7zDC4qR4oIYFgPIvvf6 S3xNT7R5HlzlHrwm5ly6piLXB z SOphY70udTYhl1B9TWZivFI2E LDctBggHbZfeN37Bae+PGNvbG oua5FrZscub0vof4glgUi0SwL w YSPfkmAfeBvmZKM7r6JiGq55W 29sIHdpZHRoPSIzMCUiIHZhbG zhij0iuQ1aFx1+UUSkcMQ7hNP 0 sC3zNxYhXcQ4BRihV803TsLtq CZzNhddv2fsz4cabPw2SoSxJQ FwhiFddIbkUWB2h7AgRu12Y7N v tMiix4IbNit5lc34zQSdz6B2h JO5G6JuRTBjiqbifNYoiAruFQ 2vLEEgggytXZSjgC3jQFIzV4n 0 GhAlIaM8FEwaM3PvxcQ9GCNhw QWzQUOogWYVyF7bqgkpy5yuvc loNqFwGDMkEOe6NBx0PHNsgWa u MoFnDTG4XfA0ERJ4sUVgdI2ft OkfqxirnU2rMni+JFk8s3iioI FcEQ8dySI0FW53LS01kXYss6T 5 iXS8Q0GmTYYijksvbewzoSZ9K QUxXVLrwK55Wp6omGqqNg7aRV XpXOY0YNOwcXUjU9CrcH7bLmZ j MXPxGQZqA1ZjcYIwFVdmM955B SxyNpY4XDKxpiAxP6HuZRGgdA zrEhL6m2X5To9MLQ17JH72DB8 8 bQPas7F2hWM8F3VcXGEfkeiib kpntEK3ZMDxTRRdrK22Fd3whX yjXk2xMNEgOAQ7SRIdkRBcE9F v aJ0iKsMbPSOwFXZbT6ZgaGUtM NlmM147VIlhRwL1XXMfowGxO9 MsOVKxoNdyKxZ3t2X9Um4IIc9 6 WF60SS59zCByj2U9fAX7C7ImB KJwbynjlwpvaOR2LIBhDXGvwF 96Nk0ppAseKf3tBTQsVLN6UXG p nZBnS9VbfQ3wFaGpJPBvVYOvJ 9VabVIvPSwaN772RInhRtI5XW PtvoMnV2CmEVYziUfkHjV6w6A 7 Fr9ZYKbflmw0O7ZcEesjqSA+P A22DBGhQO41oLHhzGDwu9ryvI b9QhSgLTRcYXG0zZdqGCkzd0R k ZXI (more content not included)... Normal [facility] .Auto Diff 1on 04-16-2022 Auto [place] % 8 % Normal 06-30 [facility] Comment on above: Performed By: #### 3 [id number], 4043955, 7683168, [id number], [id number] ####[facility] (DEFAULT)[address] [place] [address] Baso Abs# 0.0 x10 Normal 0.0-0.2 [facility] Comment on above: Performed By: #### 3 [id number], 0759335, 0126806, [id number], [id number] ####[facility] (DEFAULT)[address] [place] [address] Basophils/100 WBC (Bld) 0.4 % Normal 0.2-2.0 [facility] Comment on above: Performed By: #### 3 [id number], 5254847, 2706869, [id number], 70228920 ####[facility] (DEFAULT)[address] [place] [address] Eos Abs# 0.4 x10 Normal 0.0-0.4 [facility] Comment on above: Performed By: #### 3 20327259, 2706745, 1638609, [id number], 59691573 ####[facility] (DEFAULT)[address] [place] [address] Eosinophils/100 WBC (Bld) 4.9 % High 0.9-4.0 [facility] Comment on above: Performed By: #### 3 02793515, 9765872, 4340722, [id number], 89241294 ####[facility] (DEFAULT)[address] [place] [address] Lymph Abs# 3.3 x10 High 1.3-2.9 [facility] Comment on above: Performed By: #### 3 [id number], 5592827, 8607218, [id number], 99706855 ####[facility] (DEFAULT)[address] [place] [address] Lymphocytes/100 WBC (Bld) 43 % Normal 14-48 [facility] Comment on above: Performed By: #### 3 28021088, 2236512, 7430426, 1569109550, 24318879 ####[facility] (DEFAULT)[address] [place] [address] [place] Abs# 0.6 x10 Normal 0.0-0.8 [facility] Comment on above: Performed By: #### 3 [id number], 5869374, 6076019, 2039336934, 70032732 ####[facility] (DEFAULT)[address] [place] [address] Neut Abs# 3.4 x10 Normal 1.5-9.2 [facility] Comment on above: Performed By: #### 3 56073942, 0095892, 8735762, 5761654994, 74341922 ####[facility] (DEFAULT)[address] [place] [address] Neutrophils/100 WBC (Bld) 44 % Normal 44-88 [facility] Comment on above: Performed By: #### 3 94607536, 3024632, 2712714, 9683885384, 70896657 ####[facility] (DEFAULT)[address] [place] [address] CBC w/ Auto Diffon 3 Erythrocyte distribution width (RBC) [Ratio] 17.9 % High 11.5-15.0 [facility] Comment on above: Performed By: #### 3 55865060, 6176930, 5125441, 5246966370, 48727245 ####[facility] (DEFAULT)[address] [place] [address] Hematocrit (Bld) [Volume fraction] 32.9 % Low 33.7-40.4 [facility] Comment on above: Performed By: #### 3 37663389, 4159488, 0146939, 9578389804, 29308988 ####[facility] (DEFAULT)[address] [place] [address] Hemoglobin (Bld) [Mass/Vol] 10.6 g/dL Low 11.3-15.9 [facility] Comment on above: Performed By: #### 3 13391248, 8239933, 6153125, 5645688289, 70692565 ####[facility] (DEFAULT)[address] [place] [address] Man Diff? Auto Invalid Interpretation Code [facility] Comment on above: Performed By: #### 3 43449758, 8482963, 5633312, 9896843717, 52022349 ####[facility] (DEFAULT)[address] [place] [address] MCH (RBC) [Entitic mass] 26 pg Normal 24-34 [facility] Comment on above: Performed By: #### 3 69102426, 4062597, 3072100, 9170323087, 76715352 ####[facility] (DEFAULT)[address] [place] [address]2594 MCHC (RBC) [Mass/Vol] 32 g/dL Normal 26-37 [facility] Comment on above: Performed By: #### 3 30447031, 1652748, 9270571, 2760798831, 30452553 ####[facility] (DEFAULT)[address] [place] [address] MCV (RBC) [Entitic vol] 81 fL Normal 81-100 [facility] Comment on above: Performed By: #### 3 08053820, 4995297, 7562136, 3440478812, 34709856 ####[facility] (DEFAULT)[address] [place] [address] Platelet 275 x10 Normal 138-427 [facility] Comment on above: Performed By: #### 3 25845532, 7435140, 2063736, 9498981335, 38458688 ####[facility] (DEFAULT)[address] [place] [address] Platelet mean volume (Bld) [Entitic vol] 7.8 fL Normal 6.3-10.2 [facility] Comment on above: Performed By: #### 3 35459843, 5737614, 8350535, 7269880456, 58374013 ####[facility] (DEFAULT)[address] [place] [address] RBC 4.05 x10 Normal 3.70-5.30 [facility] Comment on above: Performed By: #### 3 42040956, 2253398, 6529631, 4933651082, 34551914 ####[facility] (DEFAULT)[address] [place] [address] WBC 7.7 x10 Normal 3.5-10.5 [facility] Comment on above: Performed By: #### 3 95770689, 2062973, 3420908, 9918778249, 90066028 ####[facility] (DEFAULT)[address] [place] [address] CMP Standardon 04-16-2023 Breakpoint Chem Normal [facility] Comment on above: Performed By: #### 3 46895539, 7217082, 5490639, 2675379915, 82372712 ####[facility] (DEFAULT)[address] [place] [address] eGFR Non AA >60 Invalid Interpretation Code [facility] Comment on above: Performed By: #### 3 [id number], 6815513, 4730668, 5106274472, 62990177 ####[facility] (DEFAULT)[address] [place] [address] eGFR AA >60 Invalid Interpretation Code [facility] Comment on above: Performed By: #### 3 [id number], 1100469, 5899515, 8154194232, 63095692 ####[facility] (DEFAULT)[address] [place] [address] Albumin/Globulin [Mass ratio] 1.2 {ratio} Low 1.4-2.6 [facility] Comment on above: Performed By: #### 3 36558014, 2255266, 3335212, 0111793676, 99187265 ####[facility] (DEFAULT)[address] [place] [address] Anion gap [Moles/Vol] 7.6 mmol/L Normal 5.0-19.0 [facility] Comment on above: Performed By: #### 3 04561509, 9241600, 2892572, 5655421013, 15765706 ####[facility] (DEFAULT)[address] [place] [address] Globulin (S) [Mass/Vol] 3.2 g/dL Normal 1.5-4.3 [facility] Comment on above: Performed By: #### 3 36709490, 1532881, 5845447, 2026722751, 05919110 ####[facility] (DEFAULT)[address] [place] [address] Osmolality 275 mOsm/L Invalid Interpretation Code [facility] Comment on above: Performed By: #### 3 05700595, 7352895, 3041276, 6066303335, 53644104 ####[facility] (DEFAULT)[address] [place] [address]114 Urea nitrogen/Creatinine [Mass ratio] 20.3 mg/mg High 4.6-16.2 [facility] Comment on above: Performed By: #### 3 53983540, 7559825, 4141187, 0993509630, 71569704 ####[facility] (DEFAULT)[address] [place] [address] 25062 Albumin [Mass/Vol] 3.9 g/dL Normal 3.5-5.[address] [facility] Comment on above: Performed By: #### 3 38926748, 0884279, 4619166, 4330210315, 67684999 ####[facility] (DEFAULT)[address] [place] [address] 13262 Alk Phos 44 IU/L Normal 32-91 [facility] Comment on above: Performed By: #### 3 46288245, 2589750, 0640317, 2380069139, 44602335 ####[facility] (DEFAULT)[address] [place] [address] 75737 ALT [Catalytic activity/Vol] 39.0 U/L Normal 14.0-54.0 [facility] Comment on above: Performed By: #### 3 95819577, 6158074, 2488589, 7831048195, 37493803 ####[facility] (DEFAULT)[address] [place] [address] AST [Catalytic activity/Vol] 28 U/L Normal 15-41 [facility] Comment on above: Performed By: #### 3 74803508, 5217839, 7665763, 8769479388, 37832973 ####[facility] (DEFAULT)[address] [place] [address] Bili Total 0.4 mg/dL Normal 0.3-1.2 [facility] Comment on above: Performed By: #### 3 47458405, 3748349, 8981716, 3735222293, 05280762 ####[facility] (DEFAULT)[address] [place] [address] 60738 Calcium [Mass/Vol] 8.6 mg/dL Low 8.9-10.[address] [facility] Comment on above: Performed By: #### 3 04852789, 8434992, 8712221, 2544889808, 96580642 ####[facility] (DEFAULT)[address] [place] [address] 90505 Chloride [Moles/Vol] 107 mmol/L Normal 101-111 [facility] Comment on above: Performed By: #### 3 54898278, 8886782, 8621084, 3871851343, 20840170 ####[facility] (DEFAULT)[address] [place] [address] 62222 CO2 [Moles/Vol] 27 mmol/L Normal 21-32 [facility] Comment on above: Performed By: #### 3 27367594, 4647407, 3834424, 2226815193, 98590568 ####[facility] (DEFAULT)[address] [place] [address] 34211 Creatinine [Mass/Vol] 0.64 mg/dL Normal 0.60-1.30 [facility] Comment on above: Performed By: #### 3 20397925, 7273374, 5725918, 4948105034, 77095298 ####[facility] (DEFAULT)[address] [place] [address] 52167 Glucose [Mass/Vol] 93.0 mg/dL Normal 74.0-118.[address] [facility] Comment on above: Performed By: #### 3 01292756, 2142159, 9388481, 1461455334, 19399132 ####[facility] (DEFAULT)[address] [place] [address] 61264 Potassium [Moles/Vol] 3.6 mmol/L Normal 3.6-5.1 [facility] Comment on above: Performed By: #### 3 87049939, 2971942, 4379643, 6039062395, 75975210 ####[facility] (DEFAULT)[address] [place] [address] 34520 Protein [Mass/Vol] 7.1 g/dL Normal 6.5-8.[address] [facility] Comment on above: Performed By: #### 3 03370705, 2804672, 2001139, 0170309199, 41222946 ####[facility] (DEFAULT)[address] [place] [address] 84679 Sodium [Moles/Vol] 138.0 mmol/L Normal 136.0-144.0 [facility] Comment on above: Performed By: #### 3 44095993, 2075283, 5108491, 4925197301, 36356313 ####[facility] (DEFAULT)[address] [place] [address] 63808 Urea nitrogen [Mass/Vol] 13 mg/dL Normal 8-26 [facility] Comment on above: Performed By: #### 3 23608912, 5571956, 9321416, 0596998991, 70177384 ####[facility] (DEFAULT)[address] [place] [address] ED Clinical Summaryon 2022 ED Clinical Summary [facility] - Emergency Department [address] [place] [address] ED Clinical Summary PERSON INFORMATION Name: BARBRA CLAROS Age: 27 Years Sex: FEMALE : 1995 MRN: Acct#: Visit Reason: Vaginal bleeding; Vaginal bleeding; VAGINAL BLEEDING Arrival: 04/15/2023 23:05:13 Discharge: 04/16/2023 03:19:00 LOS: 000 04:14 Check In: 04/15/2023 23:05:13 Checkout:04/16/2023 03:19:00 Address: [address] [place] [address] PCP: Provider, None PROVIDER INFORMATION Provider Role Assigned Unassigned Doreen Lowe [employer]ER CLERK Nurse 04/15/2023 23:48:50 Luis Alfredo Shepherd DO [...] that she would call Dr. Gurrola, her [employer] doctor on Monday for an assistance. She [...] Impression and Plan Diagnosis Dysfunctional uterine bleeding ([id number] N93.8, Discharge, Medical) Plan Condition: Improved. Disposition: Discharged. Prescriptions Patient was given the following educational materials: Menorrhagia, Whhz-ld-Ugkz. Follow up with: ; Michael Gurrola In 2 days 04/18/2023 home ibuprofen for cramps Provera: one tab daily to reduce the bleeding continue your iron pills Call Dr Gurrola on Monday, for a recheck apt w (more content not included)... Normal [facility] ED Note - Physicianon 2022 ED Note - Physician Patient: MARIPOSA CLAROS Age: 27 years Sex: FEMALE : [...] that she would call Dr. Gurrola, her [employer] doctor on Monday for an assistance. She [...] Impression and Plan Diagnosis Dysfunctional uterine bleeding (BHB27-MZ N93.8, Discharge, Medical) Plan Condition: Improved. Disposition: Discharged. Prescriptions Patient was given the following educational materials: Menorrhagia, Huoh-rv-Qqtz. Follow up with: ; Michael Gurrola In [...] 03:19 EDT] Luis Alfredo Shepherd DO Normal [facility] ED Patient Summaryon 023 ED Patient Summary [facility] - Emergency Department [address] [place], [place] [id number] PATIENT DISCHARGE INSTRUCTIONS Patient Information Name: BARBRA CLAROS Age: 27 Years Date of : 1995 Reason For Visit: Vaginal bleeding; Vaginal bleeding; VAGINAL BLEEDING Arrival Time: 04/15/2023 23:05:13 Primary Care Physician: Provider, None Attending Physician: Luis Alfredo Shepherd DO Comment: Visit Diagnosis: Diagnoses This Visit Dysfunctional uterine bleeding (N93.8) Vaginal bleeding ([id number]) Vaginal bleeding ([id number]) The Pharmacy at [facility] is open Monday through Monday from [...] alcohol and/or drug addiction problems; contact the [facility] 09/01 Crisis Hotline -Text 4HCVP [place] [phone]. If you received any narcotics, sedation, or [...] With: Address: When: Michael Gurrola [address], [address] [place] [address] Business (1) In 2 days [...] and treatment you received today in the [facility] Emergency Department were for an urgent problem and are not intended as complete care. It is important for you to follow up with a doctor, nurse practitioner, or physician?s assistant center manager for ongoing care. If your symptoms become [...] so we can reach you if necessary. [facility] Emergency Department has provided you with a complete list of medications post discharge. 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 Any specific questions regarding your chronic medications and dosages should be discussed with your primary care physician(s) and/or pharmacist. New Medications [facility], [address] [place] [address] [phone], [phone] medroxyPROGESTERone (medroxyPROGESTERone 5 mg oral tablet) 1 [...] This Visit (more content not included)... Normal [facility] PT/PTTon 04-16-2023 INR Coag (PPP) [Relative time] 0.99 {INR} Normal 0.91-1.11 [facility] Comment on above: Performed By: #### 3 [id number], [id number] ####[facility] (DEFAULT)[address] [place] [address] PT 10.3 second(s) Normal 9.7-11.8 [facility] Comment on above: Performed By: #### 3 [id number], [id number] ####[facility] (DEFAULT)[address] [place] [address] PTT 33 second(s) Normal 25-35 [facility] Comment on above: Performed By: #### 3 [id number], [id number] ####[facility] (DEFAULT)[address] [place] [address] Test Serum 1on Preg Serum Internal Control OK [facility] Comment on above: Performed By: #### 3 [id number], [id number] ####[facility] (DEFAULT)[address] [place] [address] Test Serum Qual Negative [facility] Comment on above: Performed By: #### 3 [id number], [id number], [id number], [id number] ####[facility] (DEFAULT)[address] [place] [address] Basophils Auto (Bld) [#/Vol] Ordered By: Jonathan Monahan on 02-27-2023 Basophils (Bld) [#/Vol] 0.0 10*3/uL 0.0-0.2 [facility] Basophils/100 WBC Auto (Bld) Ordered By: Jonathan Monahan on 02-27-2023 Basophils/100 WBC (Bld) 0.4 % . [facility] Eosinophils Auto (Bld) [#/Vo l]Ordered By: Jonathan Monahan on 02-27-2023 Eosinophils (Bld) [#/Vol] 0.1 10*3/uL 0.0-0.45 [facility] Eosinophils/100 WBC Auto (Bl d)Ordered By: Jonathan Monahan on 02-27-2023 Eosinophils/100 WBC (Bld) 0.7 % . [facility] Erythrocyte distribution wid th Auto (RBC) [Ratio]Ordered By: Jonathan Monahan on 02-27-2023 Erythrocyte distribution width (RBC) [Ratio] 14.8 % 11.9-15.3 [facility] Hematocrit Auto (Bld) [Volum e fraction]Ordered By: Jonathan Monahan on 02-27-2023 Hematocrit (Bld) [Volume fraction] 27.5 % 34.0-46.4 [facility] Hemoglobin [Mass/volume] in BloodOrdered By: Jonathan Monahan on 02-27-2023 Hemoglobin (Bld) [Mass/Vol] 8.9 g/dL 11.8-15.4 [facility] Hepatitis B virus surface Ag [Presence] in Serum or Plasma by ImmunoassayOrdered By: Jonathan Monahan on 02-27-2023 HBV surface Ag IA Ql Negative Negative [facility] Comment on above: Performed at: [address] [id number] Director: Alexander Jean Baptiste PhD, Phone: [phone] Leukocytes [#/volume] correc arminda for nucleated erythrocytes in Blood by Automated counOrdered By: Jonathan Monahan on 02-27-2023 WBC corrected for nucl RBC Auto (Bld) [#/Vol] 9.6 10*3/uL 3.8-11.6 [facility] Lymphocytes Auto (Bld) [#/Vo l]Ordered By: Jonathan Monahan on 02-27-2023 Lymphocytes (Bld) [#/Vol] 2.6 10*3/uL 1.00-4.8 [facility] Lymphocytes/100 WBC Auto (Bl d)Ordered By: Jonathan Monahan on 02-27-2023 Lymphocytes/100 WBC (Bld) 26.9 % . [facility] MCH Auto (RBC) [Entitic mass ]Ordered By: Jonathan Monahan on 02-27-2023 MCH (RBC) [Entitic mass] 25.6 pg 24.7-34.3 [facility] MCHC Auto (RBC) [Mass/Vol]Or dered By: Jonathan Monahan on 02-27-2023 MCHC (RBC) [Mass/Vol] 32.4 g/dL 32.0-35.0 [facility] MCV Auto (RBC) [Entitic vol] Ordered By: Jonathan Monahan on 02-27-2023 MCV (RBC) [Entitic vol] 79.0 fL 80-100 [facility] Monocytes Auto (Bld) [#/Vol] Ordered By: Jonathan Monahan on 02-27-2023 Monocytes (Bld) [#/Vol] 0.7 10*3/uL 0.0-0.8 [facility] Monocytes/100 WBC Auto (Bld) Ordered By: Jonathan Monahan on 02-27-2023 Monocytes/100 WBC (Bld) 7.1 % . [facility] Neutrophils Auto (Bld) [#/Vo l]Ordered By: Jonathan Monahan on 02-27-2023 Neutrophils (Bld) [#/Vol] 6.2 10*3/uL 1.8-7.7 [facility] Neutrophils/100 WBC Auto (Bl d)Ordered By: Jonathan Monahan on 02-27-2023 Neutrophils/100 WBC (Bld) 64.9 % . [facility] No Panel InformationOrdered By: Jonathan Monahan on 02-27-2023 Rubella IgG Antibody 2.22 index Immune >0.99 [facility] Comment on above: Non-immune <0.90 Equ ivocal 0.90 - 0.99 Immune >0.99Performed at: [facility] [id number] Director: Alexander Jean Baptiste PhD, Phone: [phone] Nucleated erythrocytes [Pres ence] in Blood by Automated countOrdered By: Jonathan Monahan on 02-27-2023 Nucleated RBC Auto Ql (Bld) 0.2 /100{WBC} 0-0.5 [facility] Platelet mean volume Auto (B ld) [Entitic vol]Ordered By: Jonathan Monahan on 02-27-2023 Platelet mean volume (Bld) [Entitic vol] 7.5 fL 6.3-10.7 [facility] Platelets Auto (Bld) [#/Vol] Ordered By: Jonathan Monahan on 02-27-2023 Platelets (Bld) [#/Vol] 266 10*3/uL 150-450 [facility] RBC Auto (Bld) [#/Vol]Ordere d By: Jonathan Monahan on 02-27-2023 RBC (Bld) [#/Vol] 3.48 10*6/uL 3.60-5.00 [facility] WBC Auto (Bld) [#/Vol]Ordere d By: Jonathan Monahan on 02-27-2023 WBC (Bld) [#/Vol] 9.6 10*3/uL 3.8-11.6 [facility] Amphetamine Screen Ql (U)Ord ered By: Jonathan Monahan on 02-26-2023 Amphetamines Ql (U) Negative Negative [facility] Automated erythrocytes count in urine sediment (number/area)Ordered By: Jonathan Monahan on 02-26-2023 RBC Auto (Urine sed) [#/Area] 0-1 [HPF] 0-4 [facility] Automated leukocytes count i n urine sediment (number/area)Ordered By: Jonathan Monahan on 02-26-2023 WBC Auto (Urine sed) [#/Area] 20-49 [HPF] 0-4 [facility] Barbiturates [Presence] in U rine by Screen methodOrdered By: Jonathan Monahan on 02-26-2023 Barbiturates Screen Ql (U) Negative Negative [facility] Benzodiazepines Screen Ql (U )Ordered By: Jonathan Monahan on 02-26-2023 Benzodiazepines Ql (U) Negative Negative [facility] Benzoylecgonine [Presence] i n Urine by Screen methodOrdered By: Jonathan Monahan on 02-26-2023 Benzoylecgonine Screen Ql (U) Negative Negative [facility] Bilirubin Test strip Ql (U)O rdered By: Jonathan Monahan on 02-26-2023 Bilirubin Ql (U) Negative Negative [facility] Color Auto (U)Ordered By: Hola Monahan on 02-26-2023 Color (U) Yellow Yellow [facility] Ketones Auto test strip (U) [Mass/Vol]Ordered By: Jonathan Monahan on 02-26-2023 Ketones (U) [Mass/Vol] Trace Negative [facility] Laboratory - UrinalysisOrder ed By: Jonathan Monahan on 02-26-2023 Hyaline casts LM Ql (Urine sed) 0-8 [LPF] 0-8 [facility] Nitrite Test strip Ql (U)Ord ered By: Jonathan Monahan on 02-26-2023 Nitrite Ql (U) Negative Negative [facility] Opiates [Presence] in Urine by Screen methodOrdered By: Jonathan Monahan on 02-26-2023 Opiates Screen Ql (U) Negative Negative [facility] Phencyclidine Screen Ql (U)O rdered By: Jonathan Monahan on 02-26-2023 Phencyclidine Ql (U) Negative Negative [facility] Comment on above: These are unconfirme d results and should not be used for legal purposes. Drug Cut-Off Concentration: AMPH 1000 ng/mL FIONA 200 ng/mL KIMMY 200 ng/mL COCM 300 ng/mL OP 300 ng/mL PCP 25 ng/mL Protein Auto test strip (U) [Mass/Vol]Ordered By: Jonathan Monahan on 02-26-2023 Protein (U) [Mass/Vol] Negative Negative [facility] Reagin Ab [Presence] in Seru m by RPROrdered By: Jonathan Monahan on 02-26-2023 Reagin Ab RPR Ql (S) Non-Reactive Non Reactive [facility] Comment on above: Performed at: [address] [id number] Director: Alexander Jean Baptiste PhD, Phone: [phone] Specific gravity Auto test s trip (U) [Rel density]Ordered By: Jonathan Monahan on 02-26-2023 Specific gravity (U) [Rel density] 1.016 1.001-1.030 [facility] Squamous epithelial cells de tection in urine sediment by light microscopyOrdered By: Jonathan Monahan on 02-26-2023 Epithelial cells.squamous LM Ql (Urine sed) 3-4 [HPF] 0-2 [facility] Urine bacteria detection by automated methodOrdered By: Jonathan Monahan on 02-26-2023 Bacteria Auto Ql (U) 1+ None Seen [facility] Urine clarity by refractomet ry automatedOrdered By: Jonathan Monahan on 02-26-2023 Clarity Refractometry automated (U) Cloudy Clear [facility] Urine culture routineOrdered By: Jonathan Monahan on 02-26-2023 Bacteria identified Cx Nom (U) 2 Days [facility] Urine glucose measurement by automated test strip (mass/volume)Ordered By: Jonathan Monahan on 02-26-2023 Glucose Auto test strip (U) [Mass/Vol] Normal mg/dL Normal [facility] Urine hemoglobin detection b y automated test stripOrdered By: Jonathan Monahan on 02-26-2023 Hemoglobin Auto test strip Ql (U) Negative Negative [facility] Urine leukocyte esterase det ection by automated test stripOrdered By: Jonathan Monahan on 02-26-2023 Leukocyte esterase Auto test strip Ql (U) 3+ Negative [facility] Urobilinogen Auto test strip (U) [Mass/Vol]Ordered By: Jonathan Monahan on 02-26-2023 Urobilinogen (U) [Mass/Vol] Normal mg/dL Normal [facility] pH Auto test strip (U)Ordere d By: Jonathan Monahan on 02-26-2023 pH (U) 6.5 [pH] 5.0-9.0 [facility] Amphetamine Screen Ql (U)Ord ered By: CARY Beltre on 02-25-2023 Amphetamines Ql (U) Negative Negative [facility] Barbiturates [Presence] in U rine by Screen methodOrdered By: CARY Beltre on 02-25-2023 Barbiturates Screen Ql (U) Negative Negative [facility] Benzodiazepines Screen Ql (U )Ordered By: CARY Beltre on 02-25-2023 Benzodiazepines Ql (U) Negative Negative [facility] Benzoylecgonine [Presence] i n Urine by Screen methodOrdered By: CARY Beltre on 02-25-2023 Benzoylecgonine Screen Ql (U) Negative Negative [facility] Bilirubin Test strip Ql (U)O rdered By: CARY Beltre on 02-25-2023 Bilirubin Ql (U) Negative Negative [facility] Color Auto (U)Ordered By: MD NATAN Beltre on 02-25-2023 Color (U) Yellow Yellow [facility] Ketones Auto test strip (U) [Mass/Vol]Ordered By: CARY Beltre on 02-25-2023 Ketones (U) [Mass/Vol] Negative Negative [facility] Nitrite Test strip Ql (U)Ord ered By: CARY Beltre on 02-25-2023 Nitrite Ql (U) Negative Negative [facility] Opiates [Presence] in Urine by Screen methodOrdered By: CARY Beltre on 02-25-2023 Opiates Screen Ql (U) Negative Negative [facility] Phencyclidine Screen Ql (U)O rdered By: CARY Beltre on 02-25-2023 Phencyclidine Ql (U) Negative Negative [facility] Comment on above: These are unconfirme d results and should not be used for legal purposes. Drug Cut-Off Concentration: AMPH 1000 ng/mL FIONA 200 ng/mL KIMMY 200 ng/mL COCM 300 ng/mL OP 300 ng/mL PCP 25 ng/mL Protein Auto test strip (U) [Mass/Vol]Ordered By: CARY Beltre on 02-25-2023 Protein (U) [Mass/Vol] Negative Negative [facility] Specific gravity Auto test s trip (U) [Rel density]Ordered By: CARY Beltre on 02-25-2023 Specific gravity (U) [Rel density] 1.015 1.001-1.030 [facility] Urine clarity by refractomet ry automatedOrdered By: CARY Beltre on 02-25-2023 Clarity Refractometry automated (U) Clear Clear [facility] Urine glucose measurement by automated test strip (mass/volume)Ordered By: ARDEN Beltre on 02-25-2023 Glucose Auto test strip (U) [Mass/Vol] Normal mg/dL Normal [facility] Urine hemoglobin detection b y automated test stripOrdered By: CARY Beltre on 02-25-2023 Hemoglobin Auto test strip Ql (U) Negative Negative [facility] Urine leukocyte esterase det ection by automated test stripOrdered By: CARY Beltre on 02-25-2023 Leukocyte esterase Auto test strip Ql (U) Negative Negative [facility] Urobilinogen Auto test strip (U) [Mass/Vol]Ordered By: CARY Beltre on 02-25-2023 Urobilinogen (U) [Mass/Vol] Normal mg/dL Normal [facility] pH Auto test strip (U)Ordere d By: CARY Beltre on 02-25-2023 pH (U) 6.5 [pH] 5.0-9.0 [facility] Amphetamine Screen Ql (U)Ord ered By: MICHAEL GURROLA on 02-22-2023 Amphetamines Ql (U) Negative Negative [facility] Automated erythrocytes count in urine sediment (number/area)Ordered By: MICHAEL GURROLA on 02-22-2023 RBC Auto (Urine sed) [#/Area] 0-1 [HPF] 0-4 [facility] Automated leukocytes count i n urine sediment (number/area)Ordered By: MICHAEL GURROLA on 02-22-2023 WBC Auto (Urine sed) [#/Area] 5-9 [HPF] 0-4 [facility] Barbiturates [Presence] in U rine by Screen methodOrdered By: MICHAEL GURROLA on 02-22-2023 Barbiturates Screen Ql (U) Negative Negative [facility] Benzodiazepines Screen Ql (U )Ordered By: MICHAEL GURROLA on 02-22-2023 Benzodiazepines Ql (U) Negative Negative [facility] Benzoylecgonine [Presence] i n Urine by Screen methodOrdered By: MICHAEL GURROLA on 02-22-2023 Benzoylecgonine Screen Ql (U) Negative Negative [facility] Bilirubin Test strip Ql (U)O rdered By: MICHAEL GURROLA on 02-22-2023 Bilirubin Ql (U) Negative Negative [facility] Color Auto (U)Ordered By: SAMIR GURROLA on 02-22-2023 Color (U) Yellow Yellow [facility] Ketones Auto test strip (U) [Mass/Vol]Ordered By: MICHAEL GURROLA on 02-22-2023 Ketones (U) [Mass/Vol] Negative Negative [facility] Laboratory - UrinalysisOrder ed By: MICHAEL GURROLA on 02-22-2023 Hyaline casts LM Ql (Urine sed) 0-8 [LPF] 0-8 [facility] Nitrite Test strip Ql (U)Ord ered By: MICHAEL GURROLA on 02-22-2023 Nitrite Ql (U) Negative Negative [facility] No Panel InformationOrdered By: MICHAEL GURROLA on 02-22-2023 Membranes Rupture (PAMG-1) Negative Negative [facility] Opiates [Presence] in Urine by Screen methodOrdered By: MICHAEL GURROLA on 02-22-2023 Opiates Screen Ql (U) Negative Negative [facility] Phencyclidine Screen Ql (U)O rdered By: MICHAEL GURROLA on 02-22-2023 Phencyclidine Ql (U) Negative Negative [facility] Comment on above: These are unconfirme d results and should not be used for legal purposes. Drug Cut-Off Concentration: AMPH 1000 ng/mL FIONA 200 ng/mL KIMMY 200 ng/mL COCM 300 ng/mL OP 300 ng/mL PCP 25 ng/mL Protein Auto test strip (U) [Mass/Vol]Ordered By: MICHAEL GURROLA on 02-22-2023 Protein (U) [Mass/Vol] Negative Negative [facility] Specific gravity Auto test s trip (U) [Rel density]Ordered By: MICHAEL GURROLA on 02-22-2023 Specific gravity (U) [Rel density] 1.013 1.001-1.030 [facility] Squamous epithelial cells de tection in urine sediment by light microscopyOrdered By: MICHAEL GURROLA on 02-22-2023 Epithelial cells.squamous LM Ql (Urine sed) 3-4 [HPF] 0-2 [facility] Urine bacteria detection by automated methodOrdered By: MICHAEL GURROLA on 02-22-2023 Bacteria Auto Ql (U) None seen None Seen [facility] Urine clarity by refractomet ry automatedOrdered By: MICHAEL GURROLA on 02-22-2023 Clarity Refractometry automated (U) Clear Clear [facility] Urine culture routineOrdered By: MICHAEL GURROLA on 02-22-2023 Bacteria identified Cx Nom (U) [facility] Urine glucose measurement by automated test strip (mass/volume)Ordered By: MICHAEL GURROLA on 02-22-2023 Glucose Auto test strip (U) [Mass/Vol] 100 mg/dL Normal [facility] Urine hemoglobin detection b y automated test stripOrdered By: MICHAEL GURROLA on 02-22-2023 Hemoglobin Auto test strip Ql (U) Negative Negative [facility] Urine leukocyte esterase det ection by automated test stripOrdered By: MICHAEL GURROLA on 02-22-2023 Leukocyte esterase Auto test strip Ql (U) 2+ Negative [facility] Urobilinogen Auto test strip (U) [Mass/Vol]Ordered By: MICHAEL GURROLA on 02-22-2023 Urobilinogen (U) [Mass/Vol] Normal mg/dL Normal [facility] pH Auto test strip (U)Ordere d By: MICHAEL GURROLA on 02-22-2023 pH (U) 7.0 [pH] 5.0-9.0 [facility] Amphetamine Screen Ql (U)Ord ered By: JUANY CHOI on 02-19-2023 Amphetamines Ql (U) Negative Negative [facility] Barbiturates [Presence] in U rine by Screen methodOrdered By: JUANY CHOI on 02-19-2023 Barbiturates Screen Ql (U) Negative Negative [facility] Benzodiazepines Screen Ql (U )Ordered By: JUANY CHOI on 02-19-2023 Benzodiazepines Ql (U) Negative Negative [facility] Benzoylecgonine [Presence] i n Urine by Screen methodOrdered By: JUANY CHOI on 02-19-2023 Benzoylecgonine Screen Ql (U) Negative Negative [facility] Bilirubin Test strip Ql (U)O rdered By: JUANY CHOI on 02-19-2023 Bilirubin Ql (U) Negative Negative [facility] Color Auto (U)Ordered By: LEIDA CHOI on 02-19-2023 Color (U) Yellow Yellow [facility] Ketones Auto test strip (U) [Mass/Vol]Ordered By: JUANY CHOI on 02-19-2023 Ketones (U) [Mass/Vol] Negative Negative [facility] Nitrite Test strip Ql (U)Ord ered By: JUANY CHOI on 02-19-2023 Nitrite Ql (U) Negative Negative [facility] No Panel InformationOrdered By: JUANY CHOI on 02-19-2023 Membranes Rupture (PAMG-1) Negative Negative [facility] Opiates [Presence] in Urine by Screen methodOrdered By: JUANY COHI on 02-19-2023 Opiates Screen Ql (U) Negative Negative [facility] Phencyclidine Screen Ql (U)O rdered By: JUANY CHOI on 02-19-2023 Phencyclidine Ql (U) Negative Negative [facility] Comment on above: These are unconfirme d results and should not be used for legal purposes. Drug Cut-Off Concentration: AMPH 1000 ng/mL FIONA 200 ng/mL KIMMY 200 ng/mL COCM 300 ng/mL OP 300 ng/mL PCP 25 ng/mL Protein Auto test strip (U) [Mass/Vol]Ordered By: JUANY CHOI on 02-19-2023 Protein (U) [Mass/Vol] Negative Negative [facility] Specific gravity Auto test s trip (U) [Rel density]Ordered By: JUANY CHOI on 02-19-2023 Specific gravity (U) [Rel density] 1.004 1.001-1.030 [facility] Urine clarity by refractomet ry automatedOrdered By: JUANY CHOI on 02-19-2023 Clarity Refractometry automated (U) Clear Clear [facility] Urine glucose measurement by automated test strip (mass/volume)Ordered By: JUANY CHOI on 02-19-2023 Glucose Auto test strip (U) [Mass/Vol] Normal mg/dL Normal [facility] Urine hemoglobin detection b y automated test stripOrdered By: JUANY CHOI on 02-19-2023 Hemoglobin Auto test strip Ql (U) Negative Negative [facility] Urine leukocyte esterase det ection by automated test stripOrdered By: JUANY CHOI on 02-19-2023 Leukocyte esterase Auto test strip Ql (U) Negative Negative [facility] Urobilinogen Auto test strip (U) [Mass/Vol]Ordered By: JUANY CHOI on 02-19-2023 Urobilinogen (U) [Mass/Vol] Normal mg/dL Normal [facility] pH Auto test strip (U)Ordere d By: JUANY CHOI on 02-19-2023 pH (U) 6.5 [pH] 5.0-9.0 [facility] Amphetamine Screen Ql (U)Ord ered By: CARY Beltre on 02-17-2023 Amphetamines Ql (U) Negative Negative [facility] Barbiturates [Presence] in U rine by Screen methodOrdered By: CARY Beltre on 02-17-2023 Barbiturates Screen Ql (U) Negative Negative [facility] Benzodiazepines Screen Ql (U )Ordered By: CARY Beltre on 02-17-2023 Benzodiazepines Ql (U) Negative Negative [facility] Benzoylecgonine [Presence] i n Urine by Screen methodOrdered By: CARY Beltre on 02-17-2023 Benzoylecgonine Screen Ql (U) Negative Negative [facility] Bilirubin Test strip Ql (U)O rdered By: CARY Beltre on 02-17-2023 Bilirubin Ql (U) Negative Negative [facility] Color Auto (U)Ordered By: MD NATAN Beltre on 02-17-2023 Color (U) Yellow Yellow [facility] Ketones Auto test strip (U) [Mass/Vol]Ordered By: CARY Beltre on 02-17-2023 Ketones (U) [Mass/Vol] Negative Negative [facility] Nitrite Test strip Ql (U)Ord ered By: CARY Beltre on 02-17-2023 Nitrite Ql (U) Negative Negative [facility] Opiates [Presence] in Urine by Screen methodOrdered By: CARY Beltre on 02-17-2023 Opiates Screen Ql (U) Negative Negative [facility] Phencyclidine Screen Ql (U)O rdered By: CARY Beltre on 02-17-2023 Phencyclidine Ql (U) Negative Negative [facility] Comment on above: These are unconfirme d results and should not be used for legal purposes. Drug Cut-Off Concentration: AMPH 1000 ng/mL FIONA 200 ng/mL KIMMY 200 ng/mL COCM 300 ng/mL OP 300 ng/mL PCP 25 ng/mL Protein Auto test strip (U) [Mass/Vol]Ordered By: CARY Beltre on 02-17-2023 Protein (U) [Mass/Vol] Negative Negative [facility] Specific gravity Auto test s trip (U) [Rel density]Ordered By: CARY Beltre on 02-17-2023 Specific gravity (U) [Rel density] 1.003 1.001-1.030 [facility] Urine clarity by refractomet ry automatedOrdered By: CARY Beltre on 02-17-2023 Clarity Refractometry automated (U) Clear Clear [facility] Urine glucose measurement by automated test strip (mass/volume)Ordered By: ARDEN Beltre on 02-17-2023 Glucose Auto test strip (U) [Mass/Vol] Normal mg/dL Normal [facility] Urine hemoglobin detection b y automated test stripOrdered By: CARY Beltre on 02-17-2023 Hemoglobin Auto test strip Ql (U) Negative Negative [facility] Urine leukocyte esterase det ection by automated test stripOrdered By: CARY Beltre on 02-17-2023 Leukocyte esterase Auto test strip Ql (U) Negative Negative [facility] Urobilinogen Auto test strip (U) [Mass/Vol]Ordered By: CARY Beltre on 02-17-2023 Urobilinogen (U) [Mass/Vol] Normal mg/dL Normal [facility] pH Auto test strip (U)Ordere d By: CARY Beltre on 02-17-2023 pH (U) 6.5 [pH] 5.0-9.0 [facility] Group B Streptococcus cultur eOrdered By: MICHAEL GURROLA on 02-16-2023 S. agalactiae Org specific cx Ql (Unsp spec) [facility] S. agalactiae Org specific cx Ql (Unsp spec) [facility] Amphetamine Screen Ql (U)Ord ered By: Jonathan Monahan on 02-07-2023 Amphetamines Ql (U) Negative Negative [facility] Barbiturates [Presence] in U rine by Screen methodOrdered By: Jonathan Monahan on 02-07-2023 Barbiturates Screen Ql (U) Negative Negative [facility] Benzodiazepines Screen Ql (U )Ordered By: Jonathan Monahan on 02-07-2023 Benzodiazepines Ql (U) Negative Negative [facility] Benzoylecgonine [Presence] i n Urine by Screen methodOrdered By: Jonathan Monahan on 02-07-2023 Benzoylecgonine Screen Ql (U) Negative Negative [facility] Bilirubin Test strip Ql (U)O rdered By: Jonathan Monahan on 02-07-2023 Bilirubin Ql (U) Negative Negative [facility] Color Auto (U)Ordered By: Hola Monahan on 02-07-2023 Color (U) Yellow Yellow [facility] Ketones Auto test strip (U) [Mass/Vol]Ordered By: Jonathan Monahan on 02-07-2023 Ketones (U) [Mass/Vol] Trace Negative [facility] Nitrite Test strip Ql (U)Ord ered By: Jonathan Monahan on 02-07-2023 Nitrite Ql (U) Negative Negative [facility] Opiates [Presence] in Urine by Screen methodOrdered By: Jonathan Monahan on 02-07-2023 Opiates Screen Ql (U) Negative Negative [facility] Phencyclidine Screen Ql (U)O rdered By: Jonathan Monahan on 02-07-2023 Phencyclidine Ql (U) Negative Negative [facility] Comment on above: These are unconfirme d results and should not be used for legal purposes. Drug Cut-Off Concentration: AMPH 1000 ng/mL FIONA 200 ng/mL KIMMY 200 ng/mL COCM 300 ng/mL OP 300 ng/mL PCP 25 ng/mL Protein Auto test strip (U) [Mass/Vol]Ordered By: Jonathan Monahan on 02-07-2023 Protein (U) [Mass/Vol] Negative Negative [facility] Specific gravity Auto test s trip (U) [Rel density]Ordered By: Jonathan Monahan on 02-07-2023 Specific gravity (U) [Rel density] 1.006 1.001-1.030 [facility] Urine clarity by refractomet ry automatedOrdered By: Jonathan Monahan on 02-07-2023 Clarity Refractometry automated (U) Clear Clear [facility] Urine glucose measurement by automated test strip (mass/volume)Ordered By: Jonathan Monahan on 02-07-2023 Glucose Auto test strip (U) [Mass/Vol] Normal mg/dL Normal [facility] Urine hemoglobin detection b y automated test stripOrdered By: Jonathan Monahan on 02-07-2023 Hemoglobin Auto test strip Ql (U) Negative Negative [facility] Urine leukocyte esterase det ection by automated test stripOrdered By: Jonathan Monahan on 02-07-2023 Leukocyte esterase Auto test strip Ql (U) Negative Negative [facility] Urobilinogen Auto test strip (U) [Mass/Vol]Ordered By: Jonathan Monahan on 02-07-2023 Urobilinogen (U) [Mass/Vol] Normal mg/dL Normal [facility] pH Auto test strip (U)Ordere d By: Jonathan Monahan on 02-07-2023 pH (U) 6.0 [pH] 5.0-9.0 [facility] Amphetamine Screen Ql (U)Ord ered By: JUANY CHOI on 01-26-2023 Amphetamines Ql (U) Negative Negative [facility] Automated erythrocytes count in urine sediment (number/area)Ordered By: JUANY CHOI on 01-26-2023 RBC Auto (Urine sed) [#/Area] 0-1 [HPF] 0-4 [facility] Automated leukocytes count i n urine sediment (number/area)Ordered By: JUANY CHOI on 01-26-2023 WBC Auto (Urine sed) [#/Area] 0-1 [HPF] 0-4 [facility] Barbiturates [Presence] in U rine by Screen methodOrdered By: JUANY CHOI on 01-26-2023 Barbiturates Screen Ql (U) Negative Negative [facility] Benzodiazepines Screen Ql (U )Ordered By: JUANY CHOI on 01-26-2023 Benzodiazepines Ql (U) Negative Negative [facility] Benzoylecgonine [Presence] i n Urine by Screen methodOrdered By: JUANY CHOI on 01-26-2023 Benzoylecgonine Screen Ql (U) Negative Negative [facility] Bilirubin Test strip Ql (U)O rdered By: JUANY CHOI on 01-26-2023 Bilirubin Ql (U) Negative Negative [facility] Color Auto (U)Ordered By: LEIDA CHOI on 01-26-2023 Color (U) Yellow Yellow [facility] Ketones Auto test strip (U) [Mass/Vol]Ordered By: JUANY CHOI on 01-26-2023 Ketones (U) [Mass/Vol] Negative Negative [facility] Laboratory - UrinalysisOrder ed By: JUANY CHOI on 01-26-2023 Hyaline casts LM Ql (Urine sed) 0-8 [LPF] 0-8 [facility] Nitrite Test strip Ql (U)Ord ered By: JUANY CHOI on 01-26-2023 Nitrite Ql (U) Negative Negative [facility] No Panel InformationOrdered By: JUANY CHOI on 01-26-2023 Membranes Rupture (PAMG-1) Negative Negative [facility] Opiates [Presence] in Urine by Screen methodOrdered By: JUANY CHOI on 01-26-2023 Opiates Screen Ql (U) Negative Negative [facility] Phencyclidine Screen Ql (U)O rdered By: JUANY CHOI on 01-26-2023 Phencyclidine Ql (U) Negative Negative [facility] Comment on above: These are unconfirme d results and should not be used for legal purposes. Drug Cut-Off Concentration: AMPH 1000 ng/mL FIONA 200 ng/mL KIMMY 200 ng/mL COCM 300 ng/mL OP 300 ng/mL PCP 25 ng/mL Protein Auto test strip (U) [Mass/Vol]Ordered By: JUANY CHOI on 01-26-2023 Protein (U) [Mass/Vol] Trace mg/dL Negative [facility] Specific gravity Auto test s trip (U) [Rel density]Ordered By: JUANY CHOI on 01-26-2023 Specific gravity (U) [Rel density] 1.021 1.001-1.030 [facility] Squamous epithelial cells de tection in urine sediment by light microscopyOrdered By: JUANY CHOI on 01-26-2023 Epithelial cells.squamous LM Ql (Urine sed) 1-2 [HPF] 0-2 [facility] Urine bacteria detection by automated methodOrdered By: JUANY CHOI on 01-26-2023 Bacteria Auto Ql (U) None seen None Seen [facility] Urine clarity by refractomet ry automatedOrdered By: JUANY CHOI on 01-26-2023 Clarity Refractometry automated (U) Cloudy Clear [facility] Urine glucose measurement by automated test strip (mass/volume)Ordered By: JUANY CHOI on 01-26-2023 Glucose Auto test strip (U) [Mass/Vol] Normal mg/dL Normal [facility] Urine hemoglobin detection b y automated test stripOrdered By: JUANY CHOI on 01-26-2023 Hemoglobin Auto test strip Ql (U) Negative Negative [facility] Urine leukocyte esterase det ection by automated test stripOrdered By: JUANY CHOI on 01-26-2023 Leukocyte esterase Auto test strip Ql (U) Negative Negative [facility] Urobilinogen Auto test strip (U) [Mass/Vol]Ordered By: JUANY CHOI on 01-26-2023 Urobilinogen (U) [Mass/Vol] Normal mg/dL Normal [facility] pH Auto test strip (U)Ordere d By: JUANY CHOI on 01-26-2023 pH (U) 6.0 [pH] 5.0-9.0 [facility] Amphetamine Screen Ql (U)Ord ered By: Jonathan Monahan on 01-24-2023 Amphetamines Ql (U) Negative Negative [facility] Automated erythrocytes count in urine sediment (number/area)Ordered By: Jonathan Monahan on 01-24-2023 RBC Auto (Urine sed) [#/Area] 0-1 [HPF] 0-4 [facility] Automated leukocytes count i n urine sediment (number/area)Ordered By: Jonathan Monahan on 01-24-2023 WBC Auto (Urine sed) [#/Area] 0-1 [HPF] 0-4 [facility] Barbiturates [Presence] in U rine by Screen methodOrdered By: Jonathan Monahan on 01-24-2023 Barbiturates Screen Ql (U) Negative Negative [facility] Benzodiazepines Screen Ql (U )Ordered By: Jonathan Monahan on 01-24-2023 Benzodiazepines Ql (U) Negative Negative [facility] Benzoylecgonine [Presence] i n Urine by Screen methodOrdered By: Jonathan Monahan on 01-24-2023 Benzoylecgonine Screen Ql (U) Negative Negative [facility] Bilirubin Test strip Ql (U)O rdered By: Jonathan Monahan on 01-24-2023 Bilirubin Ql (U) Negative Negative [facility] Color Auto (U)Ordered By: Hola Monahan on 01-24-2023 Color (U) Yellow Yellow [facility] Ketones Auto test strip (U) [Mass/Vol]Ordered By: Jonathan Monahan on 01-24-2023 Ketones (U) [Mass/Vol] Trace Negative [facility] Laboratory - UrinalysisOrder ed By: Jonathan Monahan on 01-24-2023 Hyaline casts LM Ql (Urine sed) 0-8 [LPF] 0-8 [facility] Nitrite Test strip Ql (U)Ord ered By: Jonathan Monahan on 01-24-2023 Nitrite Ql (U) Negative Negative [facility] No Panel InformationOrdered By: Jonathan Monahan on 01-24-2023 Membranes Rupture (PAMG-1) Negative Negative [facility] Opiates [Presence] in Urine by Screen methodOrdered By: Jonathan Monahan on 01-24-2023 Opiates Screen Ql (U) Negative Negative [facility] Phencyclidine Screen Ql (U)O rdered By: Jonathan Monahan on 01-24-2023 Phencyclidine Ql (U) Negative Negative [facility] Comment on above: These are unconfirme d results and should not be used for legal purposes. Drug Cut-Off Concentration: AMPH 1000 ng/mL FIONA 200 ng/mL KIMMY 200 ng/mL COCM 300 ng/mL OP 300 ng/mL PCP 25 ng/mL Protein Auto test strip (U) [Mass/Vol]Ordered By: Jonathan Monahan on 01-24-2023 Protein (U) [Mass/Vol] Trace mg/dL Negative [facility] Specific gravity Auto test s trip (U) [Rel density]Ordered By: Jonathan Monahan on 01-24-2023 Specific gravity (U) [Rel density] 1.013 1.001-1.030 [facility] Squamous epithelial cells de tection in urine sediment by light microscopyOrdered By: Jonathan Monahan on 01-24-2023 Epithelial cells.squamous LM Ql (Urine sed) 0-1 [HPF] 0-2 [facility] Urine bacteria detection by automated methodOrdered By: Jonathan Monahan on 01-24-2023 Bacteria Auto Ql (U) None seen None Seen [facility] Urine clarity by refractomet ry automatedOrdered By: Jonathan Monahan on 01-24-2023 Clarity Refractometry automated (U) Clear Clear [facility] Urine glucose measurement by automated test strip (mass/volume)Ordered By: Jonathan Monahan on 01-24-2023 Glucose Auto test strip (U) [Mass/Vol] Normal mg/dL Normal [facility] Urine hemoglobin detection b y automated test stripOrdered By: Jonathan Monahan on 01-24-2023 Hemoglobin Auto test strip Ql (U) Negative Negative [facility] Urine leukocyte esterase det ection by automated test stripOrdered By: Jonathan Monahan on 01-24-2023 Leukocyte esterase Auto test strip Ql (U) Negative Negative [facility] Urobilinogen Auto test strip (U) [Mass/Vol]Ordered By: Jonathan Monahan on 01-24-2023 Urobilinogen (U) [Mass/Vol] Normal mg/dL Normal [facility] pH Auto test strip (U)Ordere d By: Jonathan Monahan on 01-24-2023 pH (U) 6.0 [pH] 5.0-9.0 [facility] Coding Summaryon 01-23-2023 Coding Summary HTMLBase 64 VveaxmijIYc7hEu+PGhlYWQ+P C9WKFVwE84afLNjxS0iS3MIGU lOSywgQVBQTElOSyIgbmFtZT1 kaXNjZXJu IC8+CE4qMGRyDcdvtVYpm6T8h AL6S61zwu1rNLvoyXS2GDVcNq Frrttoa7usvRk7EStkKogeSnJ t VVIcoO65XSZ9oK65Bt84fVEzz GQoj9qogAz6CgCjAPXlHHP0mN kjMLobe3RoTEUcZ42yqWRrp3U 6 GSTvgPkxzQXyPmKtnNT3tC4pY Dadkoxqy0llwymiSqu2bj14wB Lhm5A4xZY8I0IllcU9YBAayZZ g NptmwZOYuV7kyskan5nastcbF gLkWHJvFBd9VDv3JDMxcDelHc TlCX94DIZ0PNHyxlDqO8GwRTN s dQxjVoW5a2K1Yy0CW7ZENtozN 1VNTUFSWTwvdGQ+CL50cn93U0 VwIhjwLoc2RNKjBNX3eWB6wE4 n ZMHbGPsgp0F8cQM1T8KkunVko i8jz4gkKRZmNRfkY21mrRYeq9 L6BMWkpSK0KAHwqEsnVdIkhI4 3 Oyc+HQJycZnww7CiSodqo3ulq 3yqtMc2ZbabYYBtiiFhgWmjEU J1d5DrNp2rLKOicSW0mFY4uJ4 i XdVyPcQ3PYhaS772YdYhfOZoU guyA67aA5JaiXK+EIOtYtf1PH XgnXmiAC0sN0QlCMLfmleizJB m zCmtET5wXQUnwrleMSQluU1tH CMjH6w2ZnArDeP5YFuoX5PcBG RyipyvQd83qR4yTxCgYvB6MZo u T8EzhzT8AQSopZTvKTtnAJH5M 68sl6F7ZKSeDSYdSCU2bPY5oD 1hbGlnbjogbGVmdDsgdmVydGl j ANnnWWumT155IODqvTiaIaQgA GluZyBEYXRlOiAgMDgvMDcvMj AyMzwvdGQ+RGVsOEN4nAzxILK n dYZuRTowEx9ruHbyxWvtCU5hU EWvhczfDFWyhR9eGRXinPBrcI poTV0aKCXiajuyg558LePvONV 0 IBIbyRNpV5QhkR3xGtAwQEVzF WIjK4JrdZVcUUqkA212JQpcAo R0HOXriaNpA9MhFTCndUnjDvT 0 z7K8He6Pw4QjefnuM9TwrSBrT jByOoigRJp6B4RkBrcvxTI+PC 13NMOeTP62IOd9DEN8aIefOAa i ONBdJ1NuyS6hZgFzCIMgORQaV yc+PHRhYmxlIHdpZHRoPScxMD BzIxGywNqdPZ2dGq1zFTLiJAQ v yIqydQSrHbShn0mrYWXgJMpyZ U0xyZvpS4EimRX1IKKty6d9Wr 18F58aZ1QvxEH+EXLvbDC3eZY 0 uG1pAcAuLqN2RIjoJ713QxZqc RZzKkroq6fec3kjuCa4PyZ3VY TpmgTigLjoRFO4k0AjWf88H71 s IHdpZHRoPSIxNSUiIHZhbGlnb a5kyH1qTi7+RHAuvMN3pSK9eY 6vOtKzQaD5HZztL800VmJliLO v Uawut9iap7ppoZr8AyZnBIFax iInnUueJHR4a9NvId97N1WsqM jrc7EjVui1bo14cTGik6E2oEA 9 N9VfBQNrafsbyTLgqXqvFO8hR EZfdrbfOGRyhL3wREEfX2q0To XxRgC5MQxsW6VwqqQ5JHUvvJI g BTOgzMEIdX1hbvyzp2vfmqhwV gMvLVOqYPk5DYe6CFVodKztCn SwFAN9IgN5EZI3qEVgiT3qkKw n emflhM9iUmj+JGY7rXJgyDARW M8tMygokVO+ZXIfCVX4vLcjOH qjQPPxlX4cFJYqS0o0CuHzIfK 1 RRitM4XecfW0ICOaeYOjPKKjq REOjL2edjixw5tnfjmaLoGbBI GmWZd2NLs4QQNzwTvvQvMtIYX 0 RyO4OWV5lSHgxM6oxFhyxiecd G9wOyc+JmvfePmqQIH4XFv5Q7 PaUik9OJQvgHbcWG4rfMAgQFf u Jp3uiHzioAneLU0vHUAarjcpd 960DzUbx1sdEIVyoPOaNGphPA K6W45cr8C4KIEeDCHkVCN2fMT 4 iI6seYzibwetcDTtyTricgEbu RxgVJumNAbaL053PGAxoGxgTh KsJSc7N7LfOox4INNngAooRS1 n hTUzRPrsSs2meAxyeUwnOS6cB VSnendqw392KoUvo2bvSZOjnH IzVEmkCWY0P57se8N3GAElIXN w JHK9sVB6vS0teQbfvijycFKee ZpspwJiwBjbYUqgXYnwG240DW MbfNmmBtSdwYs1S2LvUzj5ETD z xKmqJR4bkRXwEZukOf2hsWoxs OjjAJ1gZTFppmlbm447YfQda2 rqEQIhgJLnFOnfZDV7E54fv4D 6 KZGxMYIoRUN0wUA6jG7qzMsxf jogbGVmdDsgdmVydGljYWwtYW rhD272YLGixJkcBuYgfThqwdW g VXfwWYj9H3EvFqxfhRZ+PC90Y IVtAD20lMTxjNMlo2aqrRr8Oq ZbCCSyTJK2wHegILgle0KcMPI t M67cbFGcd3R0JFItjTiguZBdC lYnzFY6bC7gHGpobdwwp4unhh pzEocgu6wugj53kG78T88aWWz p GKKwIBFlOZXpQFAqaCicwc1xf G9wIi8+OAWfvMJ0kUT2xY5cFI NfDmD6OAqrY738LcZtqCAqUjg j u7gto9hukKw4SpV9EHJkxwZju ZxhIIP5r0EsPh08X26yXXkjJP YpIYIxBWOuTTNsqLgsfe5baM3 w Ii8+VWLapXI5vTZ4kZ0aIlFsA aP3GYnsP648InBgmYXeMkldI3 7yT7MluDJ+FDIiWuz9ZDJifBt s EZ0hsXBhYWriYg3nELK8YaQjX uBvXGsbK5SjDCGbhzjuiyenwH H4VMBiIBDdnL26Ir7xqFywNCA w eCQBcW1vyiurm7bvdhxoHvFzJ QFqGTm9WQx9EKGxzBlhAaQaBI Y6GaI9APZ1uBOjtK4erEagmxk g fC8sG1EbTRZgykafCt99qB9tQ uUqOrJ4BGmxJgd+E6aDV03VBE NZKPONTL0FLGEMLDqTXzgrmXP + HPBkUHW0kWuzGFewQHUdqI3kZ VGlX8n7UqIvFpQ8KGejJ0IdGA FgqfltTf16vJ0oWsBiIqI9HVf u A0UmlqM1KLIvbELgBJpmXJL4W 65rv3X8RLNoXVBkJBM4rRN7lL 1hbGlnbjogbGVmdDsgdmVydGl j KMsyOAvoC832ADEqpLvwCnBlI pA5RaT5QUK8W1XxNam8OCRpwV taQR3keCWzIZsvJm7reAsrkWh g FB2fHZBkafrnXALbqD0cQCObw TOyrHrwVH3vWFYysgxht276Wu DaKDB7SRZslWVzH5VukG2yCsN j FGOjCNQgQ1DimDDaAFmpV906M KvcQmX3CPGsidTxE2KgZTMijX boWoT2z6D7Er3cHqGIGVGmfte v dGQ+BZOmPWQ0dTqgJPbyHHKaf N5oDHEeS9d1FkXqCqV8YOuwB2 WsLJCqlgutNr88sI2cSlPwCdA 1 UDrjP1SifsE9WRNlkRAzMDyoQ HW7L52sx7Z9PYHcFGQsVGS3oY U4rN9hvAgpkwwweBYnqOeqvhC y zBlmXVhbSMlqE132ZCIcsHghC kZFTUFMRTwvdGQ+HSSgEMC5gX ywCBxtAHStiU1bWUCiQ7h5MuM w LbA5XQlqK8EoCHAuwamgJn06o E7lFnPtZvI6ZQxzO6KlkoE4PO VmrISfMRvxTBS1Q11so2O8POD w MTLdBMR3rMA9oL6osKbybiohs GVmdDsgdmVydGljYWwtYWxpZ2 92ENDatUihRd5YVR92WW11R7X y PjwvdGFibGU+PHRhYmxlIHdpZ OOmMOmaGOSyYhFmgMfvAC1qOz 9bCULoWJYykGjuyQYiWlQmf0q s IHCkAPpgTF0itQjuM5YlvKY0D IDbh8a6If07H20kU6WbrGW+PG AgeND4lYR5iK1mLaLnPzJ7SAz p Z336TgBcuWItOyvvg3mnc3xpz Vn9WjBuKPCanhBhcHszNNE0v6 PeFn93E92eTUggMSJwRTIfOHO i XRTgtRfdgo9erN2zVw1+PGNvb TA8sKW5rZ1yXuNgRyB5LNhmY1 93WaIqiFQhJxrqN44lH0ReuDZ + QESpQkf0IEUuzEtlPD0qmDUnQ DhuWn7iGTM0CqWqSaChKRllR4 GgXEQpriwvvwbfxVN3QNZhOCJ w jW36Ao2jmBkiQd3yAZNpPHR2Z IRsyFXrO6CwjA8wLmMkZADwUY PuW0SujCPoLYblA749QElmMwB 7 FBYcjdWfD8ArIKPnjFnoMeL8u 5Y1Uj3IuAminDXzWL0rMuFnOF i3X5GdUpz4TIEfaNunDJ5ksMR k RJfhUr8plUgknCdyWH9uZIXdy vjwz328NtNyi4ojYXQuwOEdSN fuLYY0Z28vf4M5EUCdWNIiEFM 7 tNF7zP3fiUudnunjrYQplYdlw qKlsMuiJHwqLTjtQ098FDBsuY vmPkQUMbf7R5SsCsq3NGGwkKz s NI5tiLJmAGblVi7riKeuvTicV E1aSXUagrtny461LyQhs8srID YekWRaIJbgLSL3I65js8A2EXN w ZNGgIYG7wNG3xR1wkDssfbqzj GVmdDsgdmVydGljYWwtYWxpZ2 54PZLzhQktNo9LJoa6R8WpTnn 0 ULWzjWkmMK2ceTLoXOvnUz7lg ZbnpXfdFP1vGUNutvgxi774Mn Sra8grVESstRSjNUndUYX0Q28 s l8M6MMLcMPQdZLY0mNK4fW0br GlnbjogbGVmdDsgdmVydGljYW cyLGvpL008UWOtmXzhSkPzzFE y OjwvdGQ+QE64fk49T4GgHxyxB yg4YSYvGQN5zWU9eD6pLNEoYJ nxi7L3qEV4Z3WealNtsx5fv0z s YXB (more content not included)... [facility] Coding Summaryon 01-19-2023 Coding Summary HTMLBase 64 IpeudvnyDCw2zKt+PGhlYWQ+P S1IFDVgK66ybQEabD8sB5JTKO lOSywgQVBQTElOSyIgbmFtZT1 kaXNjZXJu IC8+MP4jJEKzWmknhXLez1I5g QN0K89prm0wIKdfdOL0UZDbXp Vnauouv2ljzBc9HOtbEzoiEjM t XQJkiP17JXX2gK94Cs87tKFjz MUfr0tgwUn1PsVmVHQxMGP6sG mjRLpgp6MyXDHbV15dfNKnd6I 6 HPWhaHkmkOBkLxXwgGS3dO5xX Rmkpymvo8qonzvcOkz1wq92gZ Dyq4P0aLH2Z8UoacW3YORgqGP g ZpfonMWKkF1gkqkym3syznqrD uJaWWKtHTs2DDk0RKQwxOtoFu ZaIT52PIY5BTJhlnXyN6AkAWM s sVzhEqE6t0M7Zh5QV7CQGctlD 1VNTUFSWTwvdGQ+TS26ml18B1 KeIlpkRnr8YXRlNMS3xEO0wR0 n EJDcNEfcm9C9jSL3A8YwazCdu t2rl0ktKLWlLGahU23ibFMde6 Y3WYKtzEN6ZNJobPumTnEatE4 3 Oyc+YFMtpLuqo3RwAbmrw9zge 5aehHm5MlttLFLhogOlkNwnHK A8v0QaWv5eSHOjfOY8fYN2eI9 i ZbUuOwQ8ZYctI250GfQfdSAcI kvdF47gL6EkqFV+SBGpCah7LE WgmTboMZ0jG3YnWHSvsztywXG m cLdyHA8hDTSvzfkjUNKliU2eZ BQxK5q4TiXzLrY4QUnuY1WjHU HxktynBb79vJ6zGcYrZgX1QJi u Y0XngnC6YBMxxCEaIUbcEHJ2D 36om8F8JMBaEINzEVF1qED0eP 1hbGlnbjogbGVmdDsgdmVydGl j QOpvJWbuR349JHUhyUhcYySsJ GluZyBEYXRlOiAgMDgvMDMvMj AyMzwvdGQ+LFSjEEI7uHblRMW n oZZxHPtmVl7lhTfetFdgIR7qB FAgvkjeWYQcsC0qYDJzsGNmaJ myHV5rPPRjqpmmv639LeAuBZH 0 WPMjfHLrQ3QqmE6gTpXlSXIuJ FOsS0PdlDOoBElaA302IYibNw Z4LVJmvfTqD4OxLHLmcXlcKnN 0 v7N3Mz2Tm5ZnjojdD8BwiSIgY fVyJguzEHs3V6XvJnusgCF+PC 68LNCbCD11NFr6JIG6hPmpEIt i OUKoQ8BgrA6wYhRzNLFzRDVrK yc+PHRhYmxlIHdpZHRoPScxMD KcFjLoaAtnRJ6pDu1uFWRpRTZ v hZpreTBjYsGwb6meMXUzCRwoA F6maIkeH4JxfZF9JKMhg2t9Eb 68W30kG0VohRC+HQXaoLP6iNL 0 oI8hBcRiSlP2LWoyC403NuQey TMqEznzw4ckz9sulHd9TtV1WT MllePtzPukXCT4w0XwHl97D15 s IHdpZHRoPSIxNSUiIHZhbGlnb m8ihE1zVb3+PXQlfFF6qLM2uD 7pHqKtTvK9SRxvD864ZkBxfAE v Mlqhr4qms9ochZh0KsXkAQAjk qLajNnkDXQ6j2EoSt92I5VncR mby7TjKmp6qv40sCOsh7V1jYT 9 W7BeIMWfndwonULvyQeoYI4uP SLygqqrBEYzkP1xKDMmG3o1Fr QzYgC8EAseV3AxeeZ9ZNGfdKL g MIZlqWTDgM5kqvkvk5grznxyS pUvAAPtQFb4SYm1LYBzjTxvUr UyUGH7UkV2DAT1hVXedL7lrXa n lmxmxK1fOtf+FCR7lFRtiLXHX J5uBswnkVU+KGWvPLX7oVnnCK emFGSebD5uYFSnZ1w4McVqHsO 1 EBmlM4HlwhB4YUVipCExBYMsw OUGzN9vwstdq0ultineXoBgQK VaEZk3CNx1ZACutTudSvEyOWZ 0 NwI4WNX3nMAimP9vaNohuwxgz G9wOyc+ZlhlvBtiCWX5ZIz6T3 LmHau1HYApxBecQM9aiRCrJCl u Ff9cuZochKmdRT3fYDXjqcbql 123StVmj8fgQNOrtIGgFRtuSM C4U90on1R5DOQsMGEdIZC3xWU 4 bH8dnPrmltyawHSkwSchebEpx UnqFWgcSUvwV632NVXgkXjzQb SnJMx1D1WcRcs6CMJxtAmjWH6 n zCLsYZurId6mxRkpmGymUG2sN KIigwupp691NxMhd3akUPPtvX ZnZRtoIBK2K26ge5M3LQSoRRL w ZSQ4cCR2mA4awCnfzxjstOZyh CjzpqSwuYboSSqkAMsrQ086EO TqlUdbNeFbdCc9W5MvSri5WIN z uCgcSJ0qzDKaWOvuXo1kgNgxb XmsDA0jLQWddvtzl929UeDaw7 rmKZYtfRDvQRfaSEY4L53rs2L 6 ZUAlIWCxIQP7uQH6yG4unNcqo jogbGVmdDsgdmVydGljYWwtYW xoF343LEPamDnvTeZzvRcojeR g QRojRZj8V2FtDmvutGS+PC90Y RXtJQ88cWEnqDWfd5xwnCq1It RhCDPnFRE2tCnxKKpcm1JfMUA t U10xrNIpz3M8ULLpsTadiCUeZ kGiwZY5zV3dSVxvjwtdo8qvfn wcFdhdx0sfdv47eU07N54xCEb p XADkUWBbFKBaGNXifNrvys2xe G9wIi8+UOMmuOF0eYU9lF1wAD QsTzT4EOdgN869IjTjoMMmXom j r3fvg3cjdUn6GzU6XSHcidZmq UqaNUI9d1NiHp92S52oLGqnIJ BsMBPeKVRiEISxhYopor8bdM1 w Ii8+GWWgtQW9nSN5uT6jYbCnI bC1BGjcI140CnUxkPArNhlaD2 1yN8GrdMF+KVOpXjs3XFTkkBh s WL1yxZHaZHhtGt4iTIC0AiRdG vEpKXkuL9RsRURpeecogqhnkE O2XRGvLAEnxV97Bj8liGthAVM w eEUYmS6rjfeqt1jglsofMhLgA AJdBYi0PDr9VFIuwSsyFlYuCX J5GcM0QPM2jUUxeC4ffZjxolu g hN8eG9ApANSwsdlxNz11lQ0zZ sIqLdW0LDipWnc+M0gXG73ETU OJGOHXVQ3SJPOLWZaXKlgabNH + EHMpRWN9bGbzJMqxWQMmwE1bQ WDaM2g6RgIhDfH7OPnyX0JzTL OoyxzyKw27hO5uMfBkGyG6AHp u R1BnicQ5IEJmpCJhLLbkGTB5M 68va0P6EMVcVKXrOTO6aCH1jH 1hbGlnbjogbGVmdDsgdmVydGl j YMxfRXnaW866OLQjaAwgAmMwX pT1NgB2CPV9A2KsVru6ERGnhX uyHQ0djGZeQKgmJw4vpSszhEj g HH9fPKBxuiinRAUyiI0iJYGnt FTxgMgqEZ0bAFOupqntu588Jg ThMZL3AIAoxRCoG8OxbI8oJoE j JIPzTOVqX8ZrhYItINixL839Q IsxPkD4HTAkcuMxT7JdLFHsnU zxHiB1h8K4Kw6mSpPHFSLyffw v dGQ+DXRpZYW1gIarWManXOFoq D1hQOJiT3i5UdUvHrG6OSlrJ4 MlGCVxbvyrNw17jE3vRuNyZqB 1 HLcwO3EiyfK6VSMkwGPkPYmoW UM7Q78dd6Z5CPApVCOjQOV3gC N0xH1gzWafqkjsoMNviVmaeaE y fKqlGBryTRizJ725JHAlqYaxU kZFTUFMRTwvdGQ+WLVfEGV5bD vnFKnhXYNgwX1dKQPkC3s9TdJ w WyJ7SEniI8EyIWXrpyjjQt32s D5uLyFwNuU3MMajC3HljqI2WL BusVEgVQywDTW3D98wr5O8BWO w ZFZxEBJ2hOQ0iR0klAlbsmpoj GVmdDsgdmVydGljYWwtYWxpZ2 43ZHAyhRlkMxFqZFAuRG3hjNp v dGQ+RZ12tx63X4FpRdhbJwj6B IPvFDW0zLZ1vC3cWNYcQMkxr2 V1oSP7F0AdohYhja9cg3yiMDM z QTasS66dqFBoc4T5DBYapRP3M HHwgDwxBfOmsR28Esh+PGNvbG fda4DwHuubc5yca9tpnOt7JeO w RCVbteYvqXajBJE2k9FzEh54N 29sIHdpZHRoPSIzMCUiIHZhbG wpri9enI8wZa5+DJOfvAQ3gUF 0 mV6zPjGvMmR1FDqkX748AzNqs EPlAcmat3oan3bhePl7OqMeOW XmfxHrqQljSXC8n5KmQj82U7J v eYxby1AhBkq4sa64xCWhk2I9k EX8R0FnUZTvmqqzkJBkmPktXS 5rTOCkzvsvIPLwaJ6hOGJoM3y 0 YeZzEpF1YVjwI6EopbN7WCFym KVzNSVknSFXfJ8dkqfyc8rwom jsPnTzUGJcGDz0UFt2MZFiwRb u FcAhEZW2DeF6UTC1uBVgsS7qg UhfbkxvzY2rPsw+BKb6f7ucvB WfGZ7vpLU9EH84YT84zCDer1I 5 cYO4F1UxMVAgohxytydwjNL4K GVuHXQtaN16Fk8xqHdbJs9oVD XeMLC4NESihKWtM4MpvA3hNgT j UMKmSUAdD5GgjOZzJGoyP334T QkmKyY8GLHyysWwS3UoTTEciX vhRiY3h5W6Gs0XST62HR27CZ3 8 eMNck5R1aMM6J6BrCSZptgfwv plbfBL7PZTxYEUsjN08Ex0zaV kcHc8jZZJwTJP9RUOlqCTkH7A v cG1vUqUfVTOcHAAvB2GfqIRtQ GpfM178JDenEuU4LZYthmUsR3 BfIPKbqIofPkQ3l0R3Nv1YWj4 6 FL62CJ80yABqb4P3vRH4I2AqB RCbkadwxaumfWT5WMRsZOGubH 20Bi4ugIbwGg2yNEArCZG5XRB p eDKvJ9TmuT6jYlJxXUQbAVIzM 5CuwFHfODdvP243MEvxLdQ0CO IscuMeR3ZzHVPvcMljEsM2x1D 7 Wr6ZJVrxypf8O3LjUwjggAY+P P99BSNaHW23fPKyaXCzv9gtiR d7VnBnYWTaEOS8gYxbTBpkj2P k ZXI (more content not included)... Normal [facility] ED Clinical Summaryon 2022 ED Clinical Summary [facility] ? Urgent Care [address] [place], [place] [id number] Clinical Summary PERSON INFORMATION Name: BARBRA CALROS Age: 27 Years Sex: FEMALE : 1995 MRN: Acct#: Visit Reason: UC - Shoulder Pain or Swelling; RT ELBOW/SHOULDER PAIN Arrival: 01/16/2023 11:29:24 Discharge: 01/16/2023 12:40:00 LOS: 000 01:11 Check In: 01/16/2023 11:29:24 Checkout: 01/16/2023 12:40:00 Address: [address] [place] [id number] PCP: Provider, None PROVIDER INFORMATION Provider Role Assigned Unassigned Etsher Friend PA-C ED PA 01/16/2023 12:04:40 Earlene [...] Sling Follow-Up: With: Address: When: Simona Holloway [phone] x [phone] Within 1 to 2 days Comments: Call to help find a local primary care physician. With: Address: When: Return to this practice DIAGNOSIS: 1:Right shoulder injury Patient Understands: Yes - Patient/family/caregiver verbalizes understanding of instructions given Comment: Normal [facility] ED Patient Summaryon 023 ED Patient Summary [facility] ? Urgent Care [address] [place] [address] PATIENT DISCHARGE INSTRUCTIONS Patient Information Name: BARBRA CLAROS Age: 27 Years Date of : 1995 Reason For Visit: UC - Shoulder Pain or Swelling; RT ELBOW/SHOULDER PAIN Arrival Time: 01/16/2023 11:29:24 Primary Care Physician: Provider, None Attending Physician: Esther Friend PA-C Comment: Patient Education With: Address: When: Simona Holloway [phone] Within 1 to 2 days Comments: Call [...] strengthen the arm. General instructions ? Take dyys-rgp-paiykll and prescription medicines only as told by [...] provider. Document Revised: 02/18/2022 Document Reviewed: 02/18/2022 [employer] Patient Education ? 2022 [employer] Shoulder Range of Motion Exercises Shoulder [...] care provider. (more content not included)... Normal [facility] Amphetamine Screen Ql (U)Ord ered By: JUANY CHOI on 01-14-2023 Amphetamines Ql (U) Negative Negative [facility] Barbiturates [Presence] in U rine by Screen methodOrdered By: JUANY CHOI on 01-14-2023 Barbiturates Screen Ql (U) Negative Negative [facility] Benzodiazepines Screen Ql (U )Ordered By: JUANY CHOI on 01-14-2023 Benzodiazepines Ql (U) Negative Negative [facility] Benzoylecgonine [Presence] i n Urine by Screen methodOrdered By: JUANY CHOI on 01-14-2023 Benzoylecgonine Screen Ql (U) Negative Negative [facility] Bilirubin Test strip Ql (U)O rdered By: JUANY CHOI on 01-14-2023 Bilirubin Ql (U) Negative Negative [facility] Color Auto (U)Ordered By: LEIDA CHOI on 01-14-2023 Color (U) Yellow Yellow [facility] fibronectinOrdered By: JUANY CHOI on 01-14-2023 Fibronectin. (Vag fld) [Mass/Vol] Negative Negative [facility] Ketones Auto test strip (U) [Mass/Vol]Ordered By: JUANY CHOI on 01-14-2023 Ketones (U) [Mass/Vol] Negative Negative [facility] Nitrite Test strip Ql (U)Ord ered By: JUANY CHOI on 01-14-2023 Nitrite Ql (U) Negative Negative [facility] Opiates [Presence] in Urine by Screen methodOrdered By: JUANY CHOI on 01-14-2023 Opiates Screen Ql (U) Negative Negative [facility] Phencyclidine Screen Ql (U)O rdered By: JUANY CHOI on 01-14-2023 Phencyclidine Ql (U) Negative Negative [facility] Comment on above: These are unconfirme d results and should not be used for legal purposes. Drug Cut-Off Concentration: AMPH 1000 ng/mL FIONA 200 ng/mL KIMMY 200 ng/mL COCM 300 ng/mL OP 300 ng/mL PCP 25 ng/mL Protein Auto test strip (U) [Mass/Vol]Ordered By: JUANY CHOI on 01-14-2023 Protein (U) [Mass/Vol] Negative Negative [facility] Specific gravity Auto test s trip (U) [Rel density]Ordered By: JUANY CHOI on 01-14-2023 Specific gravity (U) [Rel density] 1.007 1.001-1.030 [facility] Urine clarity by refractomet ry automatedOrdered By: JUANY CHOI on 01-14-2023 Clarity Refractometry automated (U) Clear Clear [facility] Urine glucose measurement by automated test strip (mass/volume)Ordered By: JUANY CHOI on 01-14-2023 Glucose Auto test strip (U) [Mass/Vol] Normal mg/dL Normal [facility] Urine hemoglobin detection b y automated test stripOrdered By: JUANY CHOI on 01-14-2023 Hemoglobin Auto test strip Ql (U) Negative Negative [facility] Urine leukocyte esterase det ection by automated test stripOrdered By: JUANY CHOI on 01-14-2023 Leukocyte esterase Auto test strip Ql (U) Negative Negative [facility] Urobilinogen Auto test strip (U) [Mass/Vol]Ordered By: JUANY CHOI on 01-14-2023 Urobilinogen (U) [Mass/Vol] Normal mg/dL Normal [facility] pH Auto test strip (U)Ordere d By: JUANY CHOI on 01-14-2023 pH (U) 8.5 [pH] 5.0-9.0 [facility] Coding Summaryon 01-12-2023 Coding Summary HTMLBase 64 DbgpyghsDHp7aEc+PGhlYWQ+P Z8NYSHjL49fuJAbdJ5pC4YTXB lOSywgQVBQTElOSyIgbmFtZT1 kaXNjZXJu IC8+EN8gSURuRmeluLOdn4C4l WI3V83pct4bYPwhfJR0FNZwSg Vbgpkbu9nsdAj7NCjqVhvnVyL t FHPrqE27MRS3kN68Va12nZYet KZcj7vpmFv9AeClTTMbPMD3uZ kcFGgli5RsOSMyG25nhMBgw1N 6 DVCnmBxgtBTfMkJmaDW4rM7lK Glotjmug8chjafgRem3jh55oA Zwy3Q3xYV2O3YefpH5CMQwhSE g BiuhoGBVzJ2gwfbnp4majeenG hItHLCvLXx1OAd9NHAvvPpbNa QwZW40GFC2WBZhkoCeT9LsGWJ s rCdqCtT4u1R3Vb9XZ4AMTuwrS 1VNTUFSWTwvdGQ+VD92tw24S3 XsZnwtPmh8BRJeXTS5mVG6bV3 n VVVwQNmye2P4xXY8R3EjtbTtn o9jy6chOGLtDSeaP17nnJFiq7 L5FVYkhSC6SUYapQzoHzVobQ3 3 Oyc+XLBdxPlud0WlAkakx9xwi 4jejTs6HhsnXTVpgoMawYiwBW H6i2ZbHl7sPWNqgQE1rRV9uN8 i JxFnJvO3HMudX309EcYipBNmJ ehjW35aB5WajHU+WEGqOyf6LN OqgFfxHB5nX4OqLXMadryyxYC m xZffQN5rIWIwydaqXJQazE6wC ILzT0n6JbBgDyQ9HXfhV7CpNR ImnhffEa55eL8uOkJmBaG4FJx u W5AoijH1XDZqsCNvVCreSRI6I 61de6G8NEIkTFUeHGI0dYF3qG 1hbGlnbjogbGVmdDsgdmVydGl j KLaqAGzaW372NCNroRwgWiBmS GluZyBEYXRlOiAgMDcvMjcvMj AyMzwvdGQ+UBYqICT3aSpcSSJ n oOVtKOldJf6dmXbgiOquAP9kH FPnhbxjFWNurK8eEXLpqEUhtC ogXY6zHBGfvlkzw424VqUhFNQ 0 NVDusBVkG4PcpV2qGfMhREUlO VDuY4YqpLXfARgkW670FStqUi S1PZGuggAeR5PzDHIkcDpuKdS 0 d3O1Av9Rp3AqxiaoT9BvlLZrE kYoVpxsEXs0F2TnCwfwxEJ+PC 53NRUnRQ46ODp1WKT0eQxxHNq i IYVnP4TkwJ3qKvGsOHFiCXYcQ yc+PHRhYmxlIHdpZHRoPScxMD ObIxDocJiqNV2iGy9aLNPhGIB v aJlzcWOfHsXut1loTQNnXLpsI D9qlZswC3VxpYY6MNNpa3g6Ai 44I77hM6JosYI+IUQsmQR0tES 0 pB3gJvWoFzB7POvcZ645QoUio TRfMknrk8vaf7qqrRz3NvL9YP JoprGrxUzsTBX6m0SnYe91T63 s IHdpZHRoPSIxNSUiIHZhbGlnb h0epO0tPj3+QICvqVJ0nEO2fM 0eTrRdEoZ7ETahR163MyUadWV v Hlajo2fsa3oqiXw4FgZpUAUnn sUtzMglSYX7r2OdLb06O9AepR tgm6CxLak2qo82gZVkl5E0vEJ 9 M4CcVBGpkgohyNSnqGhrZR8dT DUwfuemXVUorK7bZZJbS7q0Qr CbYaR9JGlwF2EbluX6JMQisRS g IJYmzSBNoZ3bvwnoj7getmpbC cCnCVCnABs2ZNw9FEIvvWnePt OzMNE5EmD2JYE8jTAroM7pmNx n vvkvuS0yMvr+WKY5oRQcnJOJS T0fDubcwFC+JRRoTGU7aFwsTD fjJQVjjG7dOIHdC1k3XlVxHdR 1 ERhaC4CfoaB3YHHfnFEtKTZws GRLdQ1zafjjk0dyqqqjVbTwQG ZxDIg0UVl5QOKzqRdsCaZlXYU 0 MjY0CIJ2dPIapP0umFjtxgacx G9wOyc+GdlauDacQUP4ATr3J7 XfXoi2PZHnuFrrBA3twJEyNNm u Rj5byEwusPnvCF7cQKHotwdkv 648LfHbm5mcIZUjfWSgCOlmAO H0I91rc8W9ATWvSWWpQAB4eTN 4 wP2vmUutbjpbqYAtrRjpevWpz VdzIOpcDNzeN219NTHceFrwTo GbTCy7E4DjXdy4WFIifOyjDK3 n oRKuZFiiPg8deSjpbZjwOI2gJ YDszvchv375PmPue9avISPzgU TdXLamXWT8T31oz1L7KEXaFRY w GCO4rAZ0qT1nfZbqfshpfSPzi XpitdHfrSegIJioOBxiB159HE BdwSbvEeGvcQm3N4AvPmt2QJS z dAliQB7bjIIgZFctBm0yrAzxt HldYH6aRLKsitriw225WuRrw7 ygHPXsaPDhGAqxYJT0U01pn3U 6 OYUzNBKtOHL4aIE9iB6ceNwpn jogbGVmdDsgdmVydGljYWwtYW cdN342CAGizBgdOwYwdHoqnsX g LWwhCIk6E8WkIjgpiME+PC90Y ISvUL97qGUzuVEvv0bxqHt7Zx SeEKUxFCI8sDywPRcmk1TdLMS t K72pcQHxb4L5JAGuoPdcvQQlG uGhoYZ9mT7jSTghaxada6ykjz taGehci3qlek77cV76E61yTXo p KAAdSUSgKXYaDFAkqRcizc7lz G9wIi8+MNCtaEI5lNK6cM6dMQ OeEyX0HUqmN476GdRtpXLfVqp j k9aoq4rurTb7YpB2UVDxrgSti XhyEHV7i5SvUd99X11aNQxwAW AbLRDvZSIpMKMnfJlvnm7xbW3 w Ii8+LUGcyCH3lIE1wP3aKvXzF rX4WGeyN639YaXnqDEuAtuxX7 0pN7QdbPF+VGSgKom3AMMesNc s RG0uhJLuOCusVc8fGYP5EjMhK tLyNUrbF0KpLNYxwfrqvvjhtR C5XLVnRBXbtW24Kk9qyVhdYMK w eZHEsX0lhadtp9iqgzorEoIlX CUnPFw9WKn6NAVeeRooNlPlZS C6YiV3OBX3mQKqmX4hsFjrxis g wL4oR7GyXUGkqgslZk29rU3uZ pAgPcB3KUdkAlv+S4lZV77BPY WAPWDMHQ1QGIGCZEvBVidweOC + JOZvAPY1tJmsOTrzGUTohO5tO RAuH1o0ShXwBhQ1BOcoV2IgZM UcnkyhYa67iI6tBpAbFjJ9VUg u L9TproF3YKFfzOXtUDfePJQ1R 71ay4A2XEViOSMyDGK5vBA1xS 1hbGlnbjogbGVmdDsgdmVydGl j CQuhWEliC511XVXhaZirQpFlQ aG9WbY0BXQ4Z5BuEll8MKNhyF vbMF0hrUFzARdiLu8foFxevTo g QH0xVRNlagguXNHxkU4qCMHyk YBpgTekZR4pPNHwkhszo900Do KoLUG5PEYqtZJcT1ShbD0qWvK j SXSsFLKdE4SqsPOxRQsiN421F XvoZdI0CZNqrcQbR9RwINEhgN wvIhD9y4K1Hf0mOsFKUZJvlzu v dGQ+LFXvKEN4cFxgLWdeRAMoh W7aYDUqT3z3SkZsPpX9COikL5 DjGEAsqbsbIh49vC5vJhXaIdZ 1 PYrhB6OqhxU3SURqkXUnQThtO ZO1M63sh4R3RYSsVYLfXPU6mX J3dX6edCjacguwbZIwoBukilL y jIlnSHliBYevD939YJApxUcjP kZFTUFMRTwvdGQ+AIYaZHY0oX amIKpuBBIaeP8yYWIsF2e8BlW w SiK8EDlgG2UcWPUzgrliCu89j G7rMcOdZxT8QXacQ2ZoxsH5DX RjfZFkWYfzMOG0I34cy4M4FQG w UQBfQYE3yBF5vT1csCykhqiri GVmdDsgdmVydGljYWwtYWxpZ2 42TSYziCsmPh6EUR73RT45D5Z y PjwvdGFibGU+PHRhYmxlIHdpZ NGvACmpPYVuLbHdtZklXG2qKi 8aFTLkSGGyqSuvpYLzXfNxr9e s RIBlHSrdJG7veCddB2YoqFD6K HMnw0y2Sl61V26oH1AkfEW+PG ZxfEH3nHZ6iH9eAxFyWuU6SCo p B688DfPsaWMcRsggb4dhw5kqu Au1PfIjKYSixzBgtNpgFTX0k4 WcXs85V90wQNvhXUQvTWAfDFL i TTSuuPcfzw8duU2sUj1+PGNvb MQ4oQC9kR8oPmEoFkR1VOvhH9 38EgGlqQGoEedyS19cG5VjtHN + GBMkBvi5MEDraBagDH5hmEYhA SzlWy7jWVU5MoOsEbUmBTgnN3 XyXCUnfwfzornqjPC8WGHyCAT w tR77Yk6xnKktUr5xQSVvSJZ0D JIltHYnC7FtqA0bUnEtWBWfGS OuG3EgrNJaSSowW338IAseJbS 7 EMOlowKuS1RvWJOliKpeOgK2a 0V4Qr8ZuZerqOHmMW9sQoVfEH o8I4RaZwu2VCNywEoaYK2qsGY k MVfhLl9dfEvaxYckIB7aTWUuf pbhh381EcAhs0aeUUIeaCUsCZ ihCCQ8S00oy6W7DFRuHLXyFII 7 vOR3yA9ooErlviludMNbeAnzp zYuaUvxRVdoIMsvT487JUHsfM ghWqRFPif4B7YhUke7ZKKjfQs s ET6ilVAaWZgkLf4bfMkqgDxiG L9oUXAysdohx693DeYbb9raOV PolTDxZVdyDWL6A51ah7T7YOR w WUPmIZS3yFJ6iR5jqBzutmocc GVmdDsgdmVydGljYWwtYWxpZ2 32YSYecUygOz7HHbl0G8KzAcu 0 NUQavBzaYH8mkNOtYPwtXy0za MupoLbyCQ7lWLWdzekbr830Oh Mlx2inDBEnrKJxSMnoHTE5R10 s h5M3OMVnANSiNXN0sBC4lQ2mo GlnbjogbGVmdDsgdmVydGljYW hjMDalZ511UFUehYugJgHyqGN y OjwvdGQ+FH66zv71S5IfQlrwM al0AGXbPVI3eXL7xN3iZSPqEU fvq2G8wPR0Q9BkwlXpqq6wo2h s YXB (more content not included)... [facility] Coding Summaryon 01-11-2023 Coding Summary HTMLBase 64 JwrbsuueFQp7cGs+PGhlYWQ+P E8KPWJlT61dlUAsjD6kN7ILEO lOSywgQVBQTElOSyIgbmFtZT1 kaXNjZXJu IC8+RS5sZQOjBtttgPVgw4P5a WL4E33pkm6sBUctfYU1VOItDf Rmdqfqe4mgtWa6QCoiYehlTmJ t DXDriE81ZEQ5jQ12Gw62cHNkl CJtq6ibbTo4YlZmRTZwFGN6rX eqGVszh4TdEOYuC24gkLYsv3V 6 MMXidItoyBKrSoBpwMS0oB0mN Jvxbkncr8ctayavIba4qb94dE Bdu7J5lLO3B7KgadT6UMVbjWJ g GvqneILGkD4mqnduf6wopqmdZ iQxNNPwJWv5NZp8YYQmjVlhGc BfSR56ASQ0PERpnlVgG7LqJYQ s bStkKhG8a9M9Ox1NB1GPQxcwS 1VNTUFSWTwvdGQ+MQ11sm35X9 XiMrcpNsp6JMBcNBM1uKM6dZ2 n AQGgPZjav2H7xUK0B0YkyaMsg f2mj8upTTUiTWhtP27miUYqc2 V0QLXrtKI2CFPyuMdpNvTuaG0 3 Oyc+SRGmtZfbh9AaOgowu4pit 6hunGb7PewbSXRpxxOdgTftZI E7e7HeWc6fHMQwpIU5oAJ8pP9 i VsAxCkH2DEurI946EfEthQGuY mqlW28bU4EblEU+SCFkApn3JO TfmLmfIZ9nC2PlSRZusfovuRV m fZwcFL3jTNQixeycEXYkjZ5rP YRzP7t8IbEpSzA6AHsrY4IaVW WvazjkCt11pS1qWjRdPsU0NTw u T5KcymE5PDSyiPTrLTftDCI5J 46ij0B0OBQaOJXxREO8wVN0dC 1hbGlnbjogbGVmdDsgdmVydGl j UYqwVFkpT917OUWghRiiYtHlT GluZyBEYXRlOiAgMDcvMjYvMj AyMzwvdGQ+PXIxFUN6hQzvDEP n mPHdDGdsMz1uiGywqBqsHB8dH BCrsdmhSEJmpI7vVAWbzKTpsI ufED9rIZGchnuqc638ObCgBYQ 0 GEMvgPRuV3BqjE6kBhKyVEPzT ZTxH4IamUGkXNsfC808INntPd L6YZPulhBfH4JsFITawJdgWhX 0 h3U2Ko8Os5HymfzsU3OyaFOjW aYhGwamQPw6N6ViHjvmrTH+PC 52ANAaHU24VXy8LZM4fGpaADi i EMTuD8AqyI4sXvCkPKXfACEaH yc+PHRhYmxlIHdpZHRoPScxMD AzYhOvgOkpWL4gPf3dXMUxUFL v uXblfPDzYxVed7kqLGNcSWpaS A0xeHliW8PvhLR0ZPPln6n7At 08T11wI3TmoBU+UEOiuUW3iXM 0 eS4vExFzVoR0XYvaT447OjPdd SRxBhreh0vny3lzsHp3HgD9DL FdknXzjXynJRH6e5OnZk66E78 s IHdpZHRoPSIxNSUiIHZhbGlnb r2ngK0lQl1+TADzfZT3sDR2kZ 3cGgVfLbG8QSvaV955MpCujRG v Dyvin7und8sqcAp1LlReBDWqx pNhmIuhWQW5k4AiCg40J3KyaJ hum6WwUpr6if99iELcu8O7qNU 9 C3LsFZIxcukacEXymNbyLR3vJ JMcsbjfMKSmzF6cAEPoF4v9Kc OvImF5KApxA6TkapW7JWYmhNO g JPHrvCOQgV8yobnlv0rjojwqW xLsWEKjCYj3RJq6NEBnpQnyPy WoNHO3NbQ5MDE7xGVpnW0faEc n fsstiQ2oSnx+GXQ5kIOqiGLAI Q3iPcwdbJN+TSIeXYW3cAmiOO oeGMGlqP6zDYIjH1o8ItFmFgN 1 NCupV4RreaM9RLPljNAsNPRzc EJJvK3vchyvw3gtppcnGuHbNR LwEMz6WZf7RIRsfKcbKvBjPXR 0 WrQ8QNC7qQZddY9llVesldaly G9wOyc+TxyemAemTHY8PJi3O1 VqKjk9DZQeuTgyJM1wsBVrGQy u Jt6juRntzTkqBR0vFKUjglypq 756KtPxn8svPUKknNJrSMsjRZ W4Z13dk7P9ZYIoYPNnQGS9mDM 4 xJ0qaGgjecxvcQVotNogwkVwl BfnSUxiIZofL471YLOhrUskAo JjBXz0K0JpSdl8IKAlcDajBU0 n lQXeDDfvJi7uaEgmrUxsZS9cG SEhelcht542HiJqw3xfSXAfpP VzUYhiPWS7D12xq8M8IZKdGVN w OWS5hSI8qJ7tcCwduyawwKPgs SickeYckGvwLGrkHErbJ916LG WjtPqrZfFlrVb5U3XmDov0HRU z uPqfZF1reBAjEWddNb5mdBlfi PxoQF6qDUHmczmdt831XmQwp0 iiIIJodTBdXGegKCD7V98kj1J 6 AMWeMQJrVXR9dPM9iK9jjFfbt jogbGVmdDsgdmVydGljYWwtYW skJ680BDGktZuvCmZluVyeaaA g WNrdOSg2U0QzIdkoxWD+PC90Y ZSmQX12mVRleCPnh3ggnLf4Er ZxNEDmLUR4yEiaVBtsn3IrVUC t S85uzCZfj4W6MOLdrYkysRSxN uGrpOM9lH9dVDksddhel7dhky rmKqxwq4qhpw25jK28X57zDCi p LUQrJCIhQTEqCTJsqWfwqx9lv G9wIi8+XESpaMN4nND6nB7rRE QsQxH6DLnqL467GpTiuHNgQrq j j9qkm1wkiRl2ZkT3QYLeosCrh HtkHUP5d1GoZi58S99cAEftFP WkFSYbQCUeXMWasSezda1jfA6 w Ii8+EZQxoRP9lSN0xA2wOeOpV yJ8ZGqdJ428XhFxnCJnOtsiE4 5yL8QulQO+TROgZqa0QYVhpAi s BE2lmDIwBVlfCb6gMZX7PcMnX oTpORnlR8AnFQCrmtczmrukdP C2XHUuYJBfdV25Uk4jjSxbWAZ w bKQFdA6cytrax6msmissVxXhX YVoSVu1NIb7EMFizUdcRyGsFC G2GjL0NPK5bTWimF1ynXvvbyc g eD9aO4NkNFYiiegxYi16sV9bR fDvPjI0QUdlImr+K8mUY88YHL HWOIYRCF6MMKEAFVrMOhdecZO + LHRcGGI5fKhzQUdrBDBdlE7jJ OXgJ1k5AyQtPdK3DMqtE3CtXU EpbpkuVp96bE6uGmVsIzS8GBn u L5AouyK7BUXcpONvMOmhUKI4E 78mn8N0HGTrUJWbMIB1nLU6yE 1hbGlnbjogbGVmdDsgdmVydGl j GMrqRWgcP899QELuwLepPnGlL kE8LbE7MBU5X8YmOju8SCOmgT bdFA3rlIJyGYclVp6pkNvoeGv g XN7nJHBmytlzQLKneJ7rPVTpj FXauJppCF2bHJAcqglru377Cd SoSAN3YLNoqVTfD5OrcR7nPaI j ZPOsNQAkO3KpqVKjSAijO536E VpaNxA6WYTmgiRjZ8McMRGneW gnGoD5t2M4Wb0hFiEGMDItxzo v dGQ+RLGoDQP0pDslQChrNOEme N0jJVAyH3g7InWtQaE6FOzkX5 QvPLFexsbkSs26nB0yLpViBbI 1 NWjlX2UqopS1TXXfvPKjNPrpG BW5V71zg4P3UQIaAFMhPIB4cA D3gO4ezMvcdqkcnKJebGbzatW y zKhlLWvlOYbwM938GNRfzFwiS kZFTUFMRTwvdGQ+CSWjIJJ1uA uoYVnbGRCmbD8bGCJtR0g7KoQ w TaF9PJtcI5NhZMIvvldeNm51l Z1zLqPdMyU8HHhzP6YqmyL8JM PgyNIpKTfhFMU3T77sq9K9BIJ w DSYiXLJ6vTQ4pU4wwHuqkiakq GVmdDsgdmVydGljYWwtYWxpZ2 72BTQabJhnUq7RAW81WB82T5M y PjwvdGFibGU+PHRhYmxlIHdpZ YPeLPwxDJPoFnKogQcnZT3mUm 7sYKBcFAZfaPlpjRNcIaHou5j s LIKvXZqqDM5zfEuwB9TjlGL2S WGyl0x4Oh19P51eI2WxdHN+PG GjjXP7mGF3bL3nJtCgSjJ1WBw p R707MxDzbGBuSijws8zln2ijw Gb1WfYvQKFszrEdfEykAFR9p2 OfMf94E35dPXvwUVDhJSNiXBV i JKAidQrxvq5lbF6lLd7+PGNvb ZK3dLF1aM0rWgOrErZ6PHbuA6 44QaCljZJlOwqxJ30oA1XscWG + ZSNrThi6FMIdkUvcXG1wxFHxN LkiNd8cCCS1QbVpRvLlVPfaE1 XnDCSnghhulpmbxDB5QQCvARM w aV46Kg8fbQakOl8tHGOcSPA3T BQfaCDfD7NmaG9fYhZmXWUbRL SrA9PhmKCsCWxzO574TDqjQlH 7 JTDebiXfU9WtCPRexYmqNwH4x 4S9Fg4ZaLuceULgZL7fEyVsMD u1I5CgTps9WFAxtBntDN4isYF k BItbVu9kbCziuDpmRW1qDTByj lkkc898OjKhz6acCLJrcGOiNB loMGF9O88mp8J1YOOtKEQbNUQ 7 oCM4yJ8adJyosleklVGseAyez bEanQsjFQytFXoxI064HUSbvV rhSvQGPvf3B1NlJmf5XCVdnEk s KB9uqJMiEGqjHs0qxXgbqXjwC F2kPAQublkcs699IgJxq8udQZ CbgTLuWCuzAAN9H62gx3J0DLK w JLIlENX1iLV8fS2diLtllgmgi GVmdDsgdmVydGljYWwtYWxpZ2 65UYFoqTsbXw8ETyp9X2BnXtk 0 PGSqoAtlXZ9wnYZqJSxpQx8wf GyvpIjoFM9uIHOhmcgxw229Dw Rbt0kzOXYmxFSsDRdgSDT9W18 s d5D7JEUhQHTbUBR8vFD6rT0yp GlnbjogbGVmdDsgdmVydGljYW gjXMcjL951BDJrtCbiIoRxyNC y OjwvdGQ+VP42oq34V6UsNhweD ah4HAJdGFL0nVS1wG2zHSOiPA qsk9C8aBV7U0FntbCuyy2di2s s YXB (more content not included)... Normal [facility] ED Clinical Summaryon 2022 ED Clinical Summary [facility] - Emergency Department [address] [place] [id number] ED Clinical Summary PERSON INFORMATION Name: BARBRA CLAROS Age: 27 Years Sex: FEMALE : 1995 MRN: Acct#: Visit Reason: Ear drainage; Ear pain; RT EAR PAIN/DRAINAGE Arrival: 01/11/2023 07:59:56 Discharge: 01/11/2023 09:01:00 LOS: 000 01:02 Check In: 01/11/2023 07:59:56 Checkout:01/11/2023 09:01:00 Address: [address] [place] [id number] PCP: Provider, None PROVIDER INFORMATION Provider Role Assigned Unassigned Anjel Yates MD ED Provider 01/11/2023 08:03:58 Kat Narvaez GAS USAGE METER CLERK Nurse 01/11/2023 08:35:38 VITALS INFORMATION Vital Sign [...] 5 days With: Address: When: None Provider [address] [place] [address] Within 3 to 5 days DIAGNOSIS: 1:Right otitis externa Patient Understands: Yes - Patient/family/caregiver verbalizes understanding of instructions given Comment: [facility] ED Patient Education Noteon 01-11-2023 ED Patient Education Note Education Materials [facility] ED Patient Summaryon 023 ED Patient Summary [facility] - Emergency Department [address] [place] [id number] PATIENT DISCHARGE INSTRUCTIONS Patient Information Name: BARBRA CLAROS Age: 27 Years Date of : 1995 Reason For Visit: Ear drainage; Ear pain; RT EAR PAIN/DRAINAGE Arrival Time: 01/11/2023 07:59:56 Primary Care Physician: Provider, None Attending Physician: Anjel Yates MD Comment: Visit Diagnosis: Diagnoses This Visit Ear drainage ([id number]) Ear pain ([id number]) Right otitis externa (H60.91) The Pharmacy at [facility] is open Monday through Monday from [...] alcohol and/or drug addiction problems; contact the [facility] 09/01 Crisis Hotline -Text 5LHUE to [phone]. If you received any narcotics, sedation, or [...] 5 days With: Address: When: None Provider [address] [place] [address] Within 3 to 5 days Medication Information: The exam and treatment you received today in the [facility] Emergency Department were for an urgent problem and are not intended as complete care. It is important for you to follow up with a doctor, nurse practitioner, or physician?s assistant center manager for ongoing care. If your symptoms become [...] so we can reach you if necessary. [facility] Emergency Department has provided you with a complete list of medications post discharge. 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 Any specific questions regarding your chronic medications and dosages should be discussed with your primary care physician(s) and/or pharmacist. New Medications [facility] [id number], [address] [place], [place] [id number], [phone] colistin/HC/neomycin/thon zonium otic (Cortisporin-TC otic suspension) 5 [...] collected on (more content not included)... Normal [facility] O'Murcia Teston 01-05-2023 Glucose [Mass/Vol] 87 mg/dL Normal <=[address] [facility] Comment on above: Performed By: #### 2 [id number] ####[facility] (DEFAULT)[address] [place] [address] Provider Orderson 01-05-2023 Provider Orders [id number] FF [facility] Coding Summaryon 01-04-2023 Coding Summary HTMLBase 64 DiqvgtriWHm1sMf+PGhlYWQ+P S1FRXBaF84mbBSvlH2hT8IRSI lOSywgQVBQTElOSyIgbmFtZT1 kaXNjZXJu IC8+PW9hEEXkNyhinGVjs4Z7n FI6R64fmq1gBNeqzGK7RHVgDp Rqdgdhx0nckWa0TEwbZjvxUbQ t AEMmuB02IET3aG96Ax54kQBed PZuf7koaVd0UpHfVLNwKHH2nR bwSNfhk3VpBXUjM50vrMBms5T 6 RPPifTtxoUYrFcQigOQ8nA8mN Mihnwzsm2fyujjnLkj9qv36iB Vqp0J3pAE5M1VjcmF6TAJdxIV g DnvsfNYHcT1hwdoep0iiwckoP hAcGDNbYOk0DEg7KKTqpXuzMe VmZD13HYZ1NYIivpNfO9TwEUC s pMogJfM4x3U1Yz9KI6JCAncmZ 1VNTUFSWTwvdGQ+XP84lk58B9 XiIseqCtd7POOmZBT3zUZ2vP9 n KYVgVJwvo0W7tGP6R6PdzbNdq q5wh5doGFCwIJqnO11abTNhi6 W2HMSqiFL4ABFgnTojBsEyxW8 3 Oyc+JTBxcYldn3RyQehhx7ijp 6jvsLc8JjisQTPnymZjlFsyDA T7t2DfIa9mVPSrjFQ2kHM7tX2 i PsNrAwE5GEcrM278QaSxiDFqW sukB46jZ8ZkcKT+JUEpRhb4VK SeqGqhHZ7fD4IgFQEsaasmdHI m eUxaNQ3iBOFoecykTMWzpK4uZ OKuX5u2FhCaMtI0LTnnW8BjAB LpofvcLx81jM3lVuYiGoX4TIh u Y1FzfhW4GQMjkORoGQvjGLX8U 67vm7V5XRFqROOlCSL2sWR6cF 1hbGlnbjogbGVmdDsgdmVydGl j LWeiRYvzF787AGZruVeqVpZnN GluZyBEYXRlOiAgMDcvMTkvMj AyMzwvdGQ+EUUkJBC5xVnrIPF n mLChGIutCq8zrLzeaVqwZZ3gT DXxnycxWYBgsZ4wKOJukZWpdB srWD4vYLZpsnzry223UvCrNYD 0 GNUctGLbR3TfuL7wDuYeNOEnP LPiN8PqdPFmFSmiQ783ANhuOs E9UROddkNoH9XsVXDmtNseFnG 0 a4D3Ah7Ww7FlxpdoZ8NuaXFdN eItWnpsHSq3C2BrMirynHZ+PC 74ZLFlBG77FFm7KXY7cMjlUGe i GYXeJ8FqoZ3oRxLqSVYdYCHdI yc+PHRhYmxlIHdpZHRoPScxMD QyMoWrxNblLP7sGe4lBJAxUWU v rFhwoGEfYnTxl9vdARBzMXewN N5cwUsrI4LuvML2CLWta0f3Vh 77F14eI2HhlDH+IINplTX9zPU 0 zK1dBtWnBgW8EMyoB721OjKhg TAzQtrcz5opw3rmvSa0SqK7FK XmkpWaiLcwCHA5x8LjCs63V47 s IHdpZHRoPSIxNSUiIHZhbGlnb l1jlG3dUz8+UIRxpJQ5lQR6gM 6jFbRwEqM8PZoqS118GxGuwEL v Eadiw6set1fntKv4KrJqKKXxk aKbcCheBBJ4j6EfBd42J9UltP ysh9MvIwx9nf79jXWwy0M6kNX 9 C0XoFSInfanxrHWhsOtyOT8hJ PJchwoiKNEdzF6pNCXaU4h7Oz JeXuG9YTebG3TnboG3TYLljPW g WSMkqHUSsS5apbtck9iyrvyxE sMeMYNsWKq0TJb5XXEvzBkkGb HwBQR1ZaM2NAH9mTIcaT2ojZk n quwldF4bRwj+JMP4zPPiwDJVV T9gEowieEF+MYRkMFH7iFvyCS mvRXLtiX3lFUClZ9o9XxEgIpM 1 JZucH4XxakV9XFCeeMIyOTNkn UICxO8yobtnd1salwinSyYkAQ ZhLHw9CTb3UYUfnPhbUzTgDEP 0 VvM4OLS1wVQeqB3asAgylptcy G9wOyc+IjoayQjzHJS5IMh8J6 MzJvs1ZGGznWmtSG6xsSLnFAt u Ao2djOqdgFwzIA5vWWTypdjnl 794NkTid3suWVVsuWQcFHspAZ D9F60ss6E0VMHwQORuAAC9iCK 4 mF7stGsuamufeABmcNspmeHby McoFBerRKuiH947TEPtqRnzFr XfICk0I9MzIxt5RLBawXmqNV4 n sJFtTQclUv8fuTuuxBmnLK9eY ALcpnzrz568CiHyw3hwNYRuvN FfSOrrRBS7D14kp8R2HIVwXCX w VLL2rSE8qZ9xqSdfbdyfxZCpm KtiicGxoZvaKEyhAEqfC424NA GltHtqCzQoaXt9D8UyFba8OPV z uJymHC2zpAPtBMesKx5dgEesh LzhTQ5sYBRclruiq361UyKob9 ruETWogPSmSRtxIDC9V68om9T 6 UKCyPAKxRKP5gXW8gE5imCtuq jogbGVmdDsgdmVydGljYWwtYW jwT994MRHbaXehOcRouRgqtvZ g ERioIDi1I0OhAiyymOV+PC90Y AVjWU70kRCqpFChd6zsfIu5Im DsYBNlAYH0rCltFTywk8OaOAF t C67fzAUbf8M6TAPekWroePFaH kFjqAS6pS8wYCffwkrvm5mmmi ziLxlkl1oneo57aE07K88oCKo p LFUrQPQgQNXvBDGbaVgoyj2xm G9wIi8+WLIxfIK4fGN7sX4dEK ZdFlY0BUokV405RhMtjSKiQgo j s4ftv5dwrJp9TdS1RGLysqNhl KthZLT9v1OuXa44V88tJZzrAK LmRTVdTYVdJOMjkQtkrz7ooL6 w Ii8+PCDrkWX4nVA8sC6gDxXbX tQ7SDgbY127AqIlfWCsHwfjA3 9kF6DlkRL+AJHhRdv1LGCeeJq s UX9doLNfRIoqWv4pUIX2YbBwG cZzRDxoA9NbDNGytzcdtsyloU R0LARiJYIfpV45Cb9bwAwiFGU w iJYWgP3kmalch7qiovbnUrTnZ FHpKDq2JGf5FDOuwTzdIsEaYC E4KuS3FSH5fKJmpC0tbDlbxpr g wB3oO9GaCGAxbowkPm52bZ0pH lVhBhV2MLmjWlc+C7xWV64FAU OXFFBEYY9ZOGPKQOgCSeukaSK + OGFvWHF1iOshESakUEXmjY4jU XPgN2y7QsCrCiY4BPecW6GlAS OsgqvxDk49eZ7bFnLcAeQ7PJs u D6ZrydB5LXPcbZWjPMzsUBJ8D 44kr6Z8QUXpFCAvJMR6xEK2dD 1hbGlnbjogbGVmdDsgdmVydGl j WTjdFOwrH586RGAvlFvdAlOnC pM9MkE9CVC2B8LkBrl8BPZimR ieWT8ctRKrNJtoVw2bwCrvgEm g MS6vUYEfpkqhNIHefI0zSTTnt PDnvTqaSK6nDMVhcuyfl781Df WxHNG5MALixCItV0HpzT2gFtH j VPFuGVKtV3NfuFQkDZllX075J McvPaY1ZTWbjnDlL6RlQWZgsL bqHaP5u3O5Zn6hWzJZGQYmzak v dGQ+UBYqWOV7tXmlNMkrHJSca V8wDVQaV7w9QeUvBiP9CMlwN7 SmESDyriqkKq97mS1hNsWcWmK 1 VHlyK8XvdjY9EMXpqUFxPQhyK NR4U46be3V8SLUwQUSdTVF2qD C6rF1edIrfqtnthMQneDjbgwO y nFahJFixABzyT276SKLhwJlxK kZFTUFMRTwvdGQ+KASuZRI7cW xxPLtbPXLavJ2pXIZbH7f8LoC w AwE6MAbqW6YdVHOhsjqpGk08a N3gZbIwDsZ4AXjpX2YzcwS9AM JeqKWxCFeiAXQ4X97fb1P2RYX w XWOaXQP3pEW7bE2rqQupcpwqe GVmdDsgdmVydGljYWwtYWxpZ2 64RWYssQevKj6XJK04AA08E9B y PjwvdGFibGU+PHRhYmxlIHdpZ TMrYRvuJYYuJxYioAnkKH5dVo 9vGLEnSLPhhKmjyBFjOfEib7e s XESvTZkzXZ0hrDahN5JvfMR2R UAki8g8Cr51H10iU5NpeNZ+PG EfcMO3wNL6pT8lWeObKoK8KMe p T126XjIsnAFbMafyq3oko1bev Mb0TlUbKUSgeoJtyOmwAXC9n3 GlCh11U61vTJuwSMRhJGLzVVV i KFGvgQbopj6amX0sDs0+PGNvb FK4bGL5hM9vJfQtMlY2EEboM3 96GlHvhTNlScxgQ16bQ0IopMX + QPIrDne6PIVymNsqUZ4lzHBsD RhxEj9xWJB0OpDbXfMgJIdbM5 SjPDFprndtncbwwLE8AHRxXFF w pI58Pj2kbNjlRw1fTUZlABK0E SEuyMUaP5ZymH5wBlRfQLLpQY YsU9JovZSjLPohD636XHnxNlG 7 QVJuncDuL0YjEPWvtAvaSoD1n 0J2Wo0SsPhyfPXhSD8rAgTqZM i9N3ByJth6ZWQibTznIC4dkCW k BWmcVi4hvMwvxMksGS0bHKYsi sjtx561SmStv5cvMDOtcKDjTP fpEON8W13tj0Z7IWEdTFCrLOU 7 yQH4qO7dvZrrglorxZOqyUxqf dNscPotOQolBGkiZ599YJRbfW ykDhCMFdi8Q3WlEac3UAYtaXi s QT5veAKpZNjkRb0mfAdokYvpL T9cWBEnhhegg948LcFev0qfFP IazYTsIVevQSP7B42pu3G2ZJB w OJKtOCV5oQJ6fA3baJecktllf GVmdDsgdmVydGljYWwtYWxpZ2 77CBMbyCsfPe4ZDla2Y0UyDvq 0 RDQldBelFR1ngLFeZIsuMy3fy MqmtHdjBA0qCEYvherqu331Gz Kiy2fzCAPwzJDwOGjfQAW6H18 s b1E9OOSdPDAzBEG1gNU9rS8mu GlnbjogbGVmdDsgdmVydGljYW puJHimH564EWXabTerJbGdeHD y OjwvdGQ+YT70dt26F9GjPhjlM ij9CLHfLGF3yKV3qW2xWCHzZI ixf0D6qZG0H3JybnYqti0fb8k s YXB (more content not included)... Normal [facility] Amphetamine Screen Ql (U)Ord ered By: Jonathan Monahan on 12-08-2022 Amphetamines Ql (U) Negative Negative [facility] Barbiturates [Presence] in U rine by Screen methodOrdered By: Jonathan Monahan on 12-08-2022 Barbiturates Screen Ql (U) Negative Negative [facility] Benzodiazepines Screen Ql (U )Ordered By: Jonathan Monahan on 12-08-2022 Benzodiazepines Ql (U) Negative Negative [facility] Benzoylecgonine [Presence] i n Urine by Screen methodOrdered By: Jonathan Monahan on 12-08-2022 Benzoylecgonine Screen Ql (U) Negative Negative [facility] Bilirubin Auto test strip Ql (U)Ordered By: Jonathan Monahan on 12-08-2022 Bilirubin Ql (U) Negative Negative [facility] fibronectinOrdered By: Jonathan Monahan on 12-08-2022 Fibronectin. (Vag fld) [Mass/Vol] Negative Negative [facility] Ketones Auto test strip (U) [Mass/Vol]Ordered By: Jonathan Monahan on 12-08-2022 Ketones (U) [Mass/Vol] Negative Negative [facility] No Panel InformationOrdered By: Jonathan Monahan on 12-08-2022 Membranes Rupture (PAMG-1) Negative Negative [facility] Opiates [Presence] in Urine by Screen methodOrdered By: Jonathan Monahan on 12-08-2022 Opiates Screen Ql (U) Negative Negative [facility] Phencyclidine Screen Ql (U)O rdered By: Jonathan Monahan on 12-08-2022 Phencyclidine Ql (U) Negative Negative [facility] Comment on above: These are unconfirme d results and should not be used for legal purposes. Drug Cut-Off Concentration: AMPH 1000 ng/mL FIONA 200 ng/mL KIMMY 200 ng/mL COCM 300 ng/mL OP 300 ng/mL PCP 25 ng/mL Protein Auto test strip (U) [Mass/Vol]Ordered By: Jonathan Monahan on 12-08-2022 Protein (U) [Mass/Vol] Negative Negative [facility] Urine appearanceOrdered By: Jonathan Monahan on 12-08-2022 Appearance (U) Clear Clear [facility] Urine colorOrdered By: Michaelle Monahan on 12-08-2022 Color (U) Yellow Yellow [facility] Urine glucose measurement by automated test strip (mass/volume)Ordered By: Jonathan Monahan on 12-08-2022 Glucose Auto test strip (U) [Mass/Vol] Normal mg/dL Normal [facility] Urine hemoglobin detection b y automated test stripOrdered By: Jonathan Monahan on 12-08-2022 Hemoglobin Auto test strip Ql (U) Negative Negative [facility] Urine leukocyte esterase det ection by automated test stripOrdered By: Jonathan Monahan on 12-08-2022 Leukocyte esterase Auto test strip Ql (U) Negative Negative [facility] Urine nitrite detection by a utomated test stripOrdered By: Jonathan Monahan on 12-08-2022 Nitrite Auto test strip Ql (U) Negative Negative [facility] Urobilinogen Auto test strip (U) [Mass/Vol]Ordered By: Jonathan Monahan on 12-08-2022 Urobilinogen (U) [Mass/Vol] Normal mg/dL Normal [facility] pH Auto test strip (U)Ordere d By: Jonahtan Monahan on 12-08-2022 pH (U) 1.005 [pH] 1.001-1.030 [facility] pH (U) 7.0 [pH] 5.0-9.0 [facility] Amphetamine Screen Ql (U)Ord ered By: Jonathan Monahan on 11-20-2022 Amphetamines Ql (U) Negative Negative [facility] Automated erythrocytes count in urine sediment (number/area)Ordered By: Jonathan Monahan on 11-20-2022 RBC Auto (Urine sed) [#/Area] 1-2 [HPF] 0-4 [facility] Automated leukocytes count i n urine sediment (number/area)Ordered By: Jonathan Monahan on 11-20-2022 WBC Auto (Urine sed) [#/Area] 1-2 [HPF] 0-4 [facility] Barbiturates [Presence] in U rine by Screen methodOrdered By: Jonathan Monahan on 11-20-2022 Barbiturates Screen Ql (U) Negative Negative [facility] Benzodiazepines Screen Ql (U )Ordered By: Jonathan Monahan on 11-20-2022 Benzodiazepines Ql (U) Negative Negative [facility] Benzoylecgonine [Presence] i n Urine by Screen methodOrdered By: Jonathan Monahan on 11-20-2022 Benzoylecgonine Screen Ql (U) Negative Negative [facility] Bilirubin Test strip Ql (U)O rdered By: Jonathan Monahan on 11-20-2022 Bilirubin Ql (U) Negative Negative [facility] Color Auto (U)Ordered By: Hola Monahan on 11-20-2022 Color (U) Yellow Yellow [facility] fibronectinOrdered By: Jonathan Monahan on 11-20-2022 Fibronectin. (Vag fld) [Mass/Vol] Negative Negative [facility] Ketones Auto test strip (U) [Mass/Vol]Ordered By: Jonathan Monahan on 11-20-2022 Ketones (U) [Mass/Vol] Trace Negative [facility] Laboratory - UrinalysisOrder ed By: Jonathan Monahan on 11-20-2022 Hyaline casts LM Ql (Urine sed) 0-8 [LPF] 0-8 [facility] Nitrite Test strip Ql (U)Ord ered By: Jonathan Monahan on 11-20-2022 Nitrite Ql (U) Negative Negative [facility] No Panel InformationOrdered By: Jonathan Monahan on 11-20-2022 Membranes Rupture (PAMG-1) Negative Negative [facility] Opiates [Presence] in Urine by Screen methodOrdered By: Jonathan Monahan on 11-20-2022 Opiates Screen Ql (U) Negative Negative [facility] Phencyclidine Screen Ql (U)O rdered By: Jonathan Monahan on 11-20-2022 Phencyclidine Ql (U) Negative Negative [facility] Comment on above: These are unconfirme d results and should not be used for legal purposes. Drug Cut-Off Concentration: AMPH 1000 ng/mL FIONA 200 ng/mL KIMMY 200 ng/mL COCM 300 ng/mL OP 300 ng/mL PCP 25 ng/mL Protein Auto test strip (U) [Mass/Vol]Ordered By: Jonathan Monahan on 11-20-2022 Protein (U) [Mass/Vol] Trace mg/dL Negative [facility] Specific gravity Auto test s trip (U) [Rel density]Ordered By: Jonathan Monahan on 11-20-2022 Specific gravity (U) [Rel density] 1.016 1.001-1.030 [facility] Squamous epithelial cells de tection in urine sediment by light microscopyOrdered By: Jonathan Monahan on 11-20-2022 Epithelial cells.squamous LM Ql (Urine sed) 1-2 [HPF] 0-2 [facility] Urine bacteria detection by automated methodOrdered By: Jonathan Monahan on 11-20-2022 Bacteria Auto Ql (U) None seen None Seen [facility] Urine clarity by refractomet ry automatedOrdered By: Jonathan Monahan on 11-20-2022 Clarity Refractometry automated (U) Clear Clear [facility] Urine glucose measurement by automated test strip (mass/volume)Ordered By: Jonathan Monahan on 11-20-2022 Glucose Auto test strip (U) [Mass/Vol] Normal mg/dL Normal [facility] Urine hemoglobin detection b y automated test stripOrdered By: Jonathan Monahan on 11-20-2022 Hemoglobin Auto test strip Ql (U) Negative Negative [facility] Urine leukocyte esterase det ection by automated test stripOrdered By: Jonathan Monahan on 11-20-2022 Leukocyte esterase Auto test strip Ql (U) Negative Negative [facility] Urobilinogen Auto test strip (U) [Mass/Vol]Ordered By: Jonathan Monahan on 11-20-2022 Urobilinogen (U) [Mass/Vol] Normal mg/dL Normal [facility] pH Auto test strip (U)Ordere d By: Jonathan Monahan on 11-20-2022 pH (U) 5.5 [pH] 5.0-9.0 [facility] Amphetamine Screen Ql (U)Ord ered By: JUANY CHOI on 11-03-2022 Amphetamines Ql (U) Negative Negative [facility] Barbiturates [Presence] in U rine by Screen methodOrdered By: JUANY CHOI on 11-03-2022 Barbiturates Screen Ql (U) Negative Negative [facility] Benzodiazepines Screen Ql (U )Ordered By: JUANY CHOI on 11-03-2022 Benzodiazepines Ql (U) Negative Negative [facility] Benzoylecgonine [Presence] i n Urine by Screen methodOrdered By: JUANY CHOI on 11-03-2022 Benzoylecgonine Screen Ql (U) Negative Negative [facility] Bilirubin Test strip Ql (U)O rdered By: JUANY CHOI on 11-03-2022 Bilirubin Ql (U) Negative Negative [facility] Color Auto (U)Ordered By: LEIDA CHOI on 11-03-2022 Color (U) Yellow Yellow [facility] Ketones Auto test strip (U) [Mass/Vol]Ordered By: JUANY CHOI on 11-03-2022 Ketones (U) [Mass/Vol] Negative Negative [facility] Nitrite Test strip Ql (U)Ord ered By: JUANY CHOI on 11-03-2022 Nitrite Ql (U) Negative Negative [facility] No Panel InformationOrdered By: JUANY CHOI on 11-03-2022 Membranes Rupture (PAMG-1) Negative Negative [facility] Opiates [Presence] in Urine by Screen methodOrdered By: JUANY CHOI on 11-03-2022 Opiates Screen Ql (U) Negative Negative [facility] Phencyclidine Screen Ql (U)O rdered By: JUANY CHOI on 11-03-2022 Phencyclidine Ql (U) Negative Negative [facility] Comment on above: These are unconfirme d results and should not be used for legal purposes. Drug Cut-Off Concentration: AMPH 1000 ng/mL FIONA 200 ng/mL KIMMY 200 ng/mL COCM 300 ng/mL OP 300 ng/mL PCP 25 ng/mL Protein Auto test strip (U) [Mass/Vol]Ordered By: JUANY CHOI on 11-03-2022 Protein (U) [Mass/Vol] Negative Negative [facility] Specific gravity Auto test s trip (U) [Rel density]Ordered By: JUANY CHOI on 11-03-2022 Specific gravity (U) [Rel density] 1.013 1.001-1.030 [facility] Urine clarity by refractomet ry automatedOrdered By: JUANY CHOI on 11-03-2022 Clarity Refractometry automated (U) Clear Clear [facility] Urine glucose measurement by automated test strip (mass/volume)Ordered By: JUANY CHOI on 11-03-2022 Glucose Auto test strip (U) [Mass/Vol] Normal mg/dL Normal [facility] Urine hemoglobin detection b y automated test stripOrdered By: JUANY CHOI on 11-03-2022 Hemoglobin Auto test strip Ql (U) Negative Negative [facility] Urine leukocyte esterase det ection by automated test stripOrdered By: JUANY CHOI on 11-03-2022 Leukocyte esterase Auto test strip Ql (U) Negative Negative [facility] Urobilinogen Auto test strip (U) [Mass/Vol]Ordered By: JUANY CHOI on 11-03-2022 Urobilinogen (U) [Mass/Vol] Normal mg/dL Normal [facility] pH Auto test strip (U)Ordere d By: JUANY CHOI on 11-03-2022 pH (U) 7.0 [pH] 5.0-9.0 [facility] Vital Signs Date Time Vital Sign Value Performing Clinician Facility 11-16-2024 07:30-0400 Body temperature 97.7 [degF] PHYSICIAN NO [facility] 11-16-2024 07:30-0400 Diastolic blood pressure 87 mm[Hg] PHYSICIAN NO [facility] 11-16-2024 07:30-0400 Heart rate 102 /min PHYSICIAN NO [facility] 11-16-2024 07:30-0400 Respiratory rate 15 /min PHYSICIAN NO [facility] 11-16-2024 07:30-0400 SaO2% (BldA) [Mass fraction] 99 % PHYSICIAN NO [facility] 11-16-2024 07:30-0400 Systolic blood pressure 122 mm[Hg] PHYSICIAN NO [facility] 11-15-2024 14:56-0400 Body height 160.02 cm PHYSICIAN NO [facility] 11-15-2024 00:35-0400 Body weight 68.1 kg PHYSICIAN NO [facility] 11-14-2024 23:16-0400 Diastolic blood pressure 70 mm[Hg] PHYSICIAN NO [facility] 11-14-2024 23:16-0400 Heart rate 68 /min PHYSICIAN NO [facility] 11-14-2024 23:16-0400 Respiratory rate 21 /min PHYSICIAN NO [facility] 11-14-2024 23:16-0400 SaO2% (BldA) [Mass fraction] 97 % PHYSICIAN NO [facility] 11-14-2024 23:16-0400 Systolic blood pressure 109 mm[Hg] PHYSICIAN NO [facility] 11-14-2024 21:38-0400 Body height 160.02 cm PHYSICIAN NO [facility] 11-14-2024 21:38-0400 Body temperature 98.5 [degF] PHYSICIAN NO [facility] 11-14-2024 21:38-0400 Body weight 68.1 kg PHYSICIAN NO [facility] 11-10-2024 07:30-0400 Body temperature 97.5 [degF] PHYSICIAN NO [facility] 11-10-2024 07:30-0400 Diastolic blood pressure 85 mm[Hg] PHYSICIAN NO [facility] 11-10-2024 07:30-0400 Heart rate 93 /min PHYSICIAN NO [facility] 11-10-2024 07:30-0400 Respiratory rate 16 /min PHYSICIAN NO [facility] 11-10-2024 07:30-0400 SaO2% (BldA) [Mass fraction] 99 % PHYSICIAN NO [facility] 11-10-2024 07:30-0400 Systolic blood pressure 127 mm[Hg] PHYSICIAN NO [facility] 11-07-2024 14:44-0400 Body height 160.02 cm PHYSICIAN NO [facility] 11-07-2024 03:45-0400 Body weight 65.7 kg PHYSICIAN NO [facility] 11-07-2024 01:45-0400 Body temperature 98.6 [degF] PHYSICIAN NO [facility] 11-07-2024 01:45-0400 Diastolic blood pressure 57 mm[Hg] PHYSICIAN NO [facility] 11-07-2024 01:45-0400 Heart rate 64 /min PHYSICIAN NO [facility] 11-07-2024 01:45-0400 Respiratory rate 17 /min PHYSICIAN NO [facility] 11-07-2024 01:45-0400 SaO2% (BldA) [Mass fraction] 98 % PHYSICIAN NO [facility] 11-07-2024 01:45-0400 Systolic blood pressure 101 mm[Hg] PHYSICIAN NO [facility] 11-06-2024 21:23-0400 Body height 160.02 cm PHYSICIAN NO [facility] 11-06-2024 21:23-0400 Body weight 65.7 kg PHYSICIAN NO [facility] 11-06-2024 15:52-0400 Body mass index (BMI) [Ratio] 23.76 kg/m2 Michael Gurrola MD Work Phone: [facility] 11-06-2024 15:52-0400 Body weight 65.77 kg Michael Gurrola MD Work Phone: [facility] 11-06-2024 15:52-0400 Diastolic blood pressure 64 mm[Hg] Michael Gurrola MD Work Phone: [facility] 11-06-2024 15:52-0400 Systolic blood pressure 110 mm[Hg] Michael Gurrola MD Work Phone: [facility] 09-11-2024 13:23-0400 Body mass index (BMI) [Ratio] 24.75 kg/m2 Michael Gurrola MD Work Phone: [facility] 09-11-2024 13:23-0400 Body weight 68.49 kg Michael Gurrola MD Work Phone: [facility] 09-11-2024 13:23-0400 Diastolic blood pressure 78 mm[Hg] Michael Gurrola MD Work Phone: [facility] 09-11-2024 13:23-0400 Systolic blood pressure 124 mm[Hg] Michael Gurrola MD Work Phone: [facility] 07-22-2024 12:36-0500 Body height 160.02 cm [facility] 07-22-2024 12:36-0500 Body mass index (BMI) [Ratio] 19.5 kg/m2 [facility] 07-22-2024 12:36-0500 Body temperature 97.9 [degF] [facility] 07-22-2024 12:36-0500 Body weight 50.12 kg [facility] 07-22-2024 12:36-0500 Diastolic blood pressure 71 mm[Hg] [facility] 07-22-2024 12:36-0500 Heart rate 76 /min [facility] 07-22-2024 12:36-0500 Respiratory rate 17 /min [facility] 07-22-2024 12:36-0500 SaO2% (BldA) [Mass fraction] 97 % [facility] 07-22-2024 12:36-0500 Systolic blood pressure 121 mm[Hg] [facility] 07-10-2024 14:08-0500 Body mass index (BMI) [Ratio] 25.56 kg/m2 Michael Gurrola MD Work Phone: [facility] 07-10-2024 14:08-0500 Body weight 70.76 kg Michael Gurrola MD Work Phone: [facility] 07-10-2024 14:08-0500 Diastolic blood pressure 78 mm[Hg] Michael Gurrola MD Work Phone: [facility] 07-10-2024 14:08-0500 Systolic blood pressure 118 mm[Hg] Michael Gurrola MD Work Phone: [facility] 04-16-2024 07:32-0400 Body temperature 97.39 [degF] [facility] [employer] 04-16-2024 07:32-0400 Diastolic blood pressure 63 mm[Hg] Cristiano Singh MD Work [facility] [employer] 04-16-2024 07:32-0400 Heart rate 67 /min Cristiano Singh MD Work [facility] [employer] 04-16-2024 07:32-0400 Respiratory rate 16 /min Cristiano Singh MD Work Phone: [facility] 04-16-2024 07:32-0400 SaO2% (BldA) [Mass fraction] 100 % Cristiano Singh MD Work Phone[facility] [employer] 04-16-2024 07:32-0400 Systolic blood pressure 111 mm[Hg] Cristiano Singh MD Work Phone: [facility] [employer] 04-16-2024 03:28-0400 Body mass index (BMI) [Ratio] 28.27 kg/m2 Cristiano Singh MD Work Phone: [email or web address] 04-16-2024 03:28-0400 Body weight 72.4 kg Cristiano Singh MD Work Phone: [email or web address] 04-11-2024 06:20-0400 Body height 160 cm Cristiano Singh MD Work [facility]: [facility] [employer] 04-09-2024 10:44-0400 Diastolic blood pressure 66 mm[Hg] Tyrone Benito DO Work Phone: [email or web address] 04-09-2024 10:44-0400 Systolic blood pressure 107 mm[Hg] Tyrone Benito DO Work Phone: [email or web address] 04-09-2024 10:42-0400 Body mass index (BMI) [Ratio] 27.1 kg/m2 Tyrone Benito DO Work Phone: [email or web address] 04-09-2024 10:42-0400 Body temperature 98.01 [degF] Tyrone Benito DO Work Phone: [email or web address] 04-09-2024 10:42-0400 Body weight 69.4 kg Tyrone Benito DO Work Phone: [email or web address] 04-09-2024 10:42-0400 Heart rate 92 /min Tyrone Benito DO Work Phone: [email or web address] 04-09-2024 10:42-0400 Respiratory rate 16 /min Tyrone Benito DO Work Phone: [email or web address] 04-09-2024 10:42-0400 SaO2% (BldA) [Mass fraction] 100 % Tyrone Mondragonis DO Work Phone: [email or web address] 04-02-2024 14:15-0400 Diastolic blood pressure 49 mm[Hg] Tyrone Mondragonis DO Work Phone: [email or web address] 04-02-2024 14:15-0400 SaO2% (BldA) [Mass fraction] 99 % Tyrone Mondragonis DO Work Phone: [facility] [employer] 04-02-2024 14:15-0400 Systolic blood pressure 101 mm[Hg] Tyrone Benito DO Work Phone: [facility] [employer] 04-02-2024 13:30-0400 Heart rate 51 /min Tyrone Benito DO Work Phone: [facility] [employer] 04-02-2024 13:30-0400 Respiratory rate 16 /min Tyrone Thong DO Work Phone: [facility] [employer] 04-02-2024 09:13-0400 Body mass index (BMI) [Ratio] 27.28 kg/m2 Tyrone Thong DO Work Phone: [email or web address] 04-02-2024 09:13-0400 Body temperature 97.9 [degF] Tyrone Benito DO Work Phone: [facility] [employer] 04-02-2024 09:13-0400 Body weight 69.85 kg Tyrone Benito DO Work Phone: [facility] 03-17-2024 12:14-0400 Diastolic blood pressure 84 mm[Hg] Prudence Wong MD Work Phone: [facility] 03-17-2024 12:14-0400 SaO2% (BldA) [Mass fraction] 100 % Prudence Wong MD Work Phone: [facility] 03-17-2024 12:14-0400 Systolic blood pressure 125 mm[Hg] Prudence Wong MD Work Phone: [facility] 03-17-2024 10:10-0400 Body temperature 98.1 [degF] Prudence Wong MD Work Phone: [facility] [employer] 03-17-2024 10:10-0400 Heart rate 102 /min Prudence Wong MD Work Phone: [facility] 03-17-2024 10:10-0400 Respiratory rate 16 /min Prudence Wong MD Work Phone: [facility] 02-15-2024 14:26-0400 Body height 160 cm [facility] 02-15-2024 14:26-0400 Body mass index (BMI) [Ratio] 28.54 kg/m2 [facility] 02-15-2024 14:26-0400 Body weight 73.07 kg [facility] 02-15-2024 14:26-0400 Diastolic blood pressure 70 mm[Hg] [facility] 02-15-2024 14:26-0400 Systolic blood pressure 128 mm[Hg] [facility] 02-07-2024 15:50-0400 Diastolic blood pressure 76 mm[Hg] Melida Huang APRN - [employer] Work Phone: [facility] [employer] 02-07-2024 15:50-0400 Heart rate 64 /min Melida Huang APRN - [employer] Work Phone: [facility] [place] [employer] 02-07-2024 15:50-0400 SaO2% (BldA) [Mass fraction] 98 % Melida Huang APRN - [facility] Work Phone: [facility] [employer] 02-07-2024 15:50-0400 Systolic blood pressure 126 mm[Hg] Melida Huang APRN - [facility] Work Phone: [facility] [employer] 02-07-2024 10:55-0400 Body height 160 cm Melida Huang APRN - [facility] Work Phone: [facility] [employer] 02-07-2024 10:55-0400 Body mass index (BMI) [Ratio] 28.34 kg/m2 Melida Huang APRN - [facility] Work Phone: [facility] [employer] 02-07-2024 10:55-0400 Body temperature 98.71 [degF] Melida Huang APRN - [facility] Work Phone: [facility] [employer] 02-07-2024 10:55-0400 Body weight 72.58 kg Melida Huang APRN - [facility] Work Phone: [facility] [employer] 02-07-2024 10:55-0400 Respiratory rate 16 /min Melida Huang APRN - [facility] Work Phone: [facility] [employer] 02-03-2024 20:38-0400 Body height 160 cm Jess Daigle DO Work Phone: [facility] [employer] 02-03-2024 20:38-0400 Body mass index (BMI) [Ratio] 28.7 kg/m2 Jess Daigle DO Work Phone: [facility] [employer] 02-03-2024 20:38-0400 Body temperature 98.1 [degF] Jess Daigle DO Work Phone: [facility] [employer] 02-03-2024 20:38-0400 Body weight 73.48 kg Jess Daigle DO Work Phone: [facility] [employer] 02-03-2024 20:38-0400 Diastolic blood pressure 70 mm[Hg] Jess Daigle DO Work Phone: [facility] [employer] 02-03-2024 20:38-0400 Heart rate 84 /min Jess Daigle DO Work Phone: [facility] [place] [employer] 02-03-2024 20:38-0400 Respiratory rate 16 /min Jess Daigle DO Work Phone: [facility] [employer] 02-03-2024 20:38-0400 SaO2% (BldA) [Mass fraction] 99 % Jess Daigle DO Work Phone: [facility] [employer] 02-03-2024 20:38-0400 Systolic blood pressure 116 mm[Hg] Jess Daigle DO Work Phone: [facility] [employer] 01-22-2024 14:41-0400 Body mass index (BMI) [Ratio] 28.86 kg/m2 [facility]yr [facility] 01-22-2024 14:41-0400 Body temperature 98.71 [degF] [facility] 01-22-2024 14:41-0400 Body weight 73.89 kg [facility] 01-22-2024 14:41-0400 Diastolic blood pressure 58 mm[Hg] [facility] 01-22-2024 14:41-0400 Systolic blood pressure 102 mm[Hg] [address] 01-08-2024 14:52-0400 Heart rate 88 /min PHYSICIAN NO [facility] 01-08-2024 14:52-0400 Respiratory rate 16 /min PHYSICIAN NO [facility] 01-08-2024 14:52-0400 SaO2% (BldA) [Mass fraction] 97 % PHYSICIAN NO [facility] 01-08-2024 12:38-0400 Body height 160.02 cm PHYSICIAN NO [facility] 01-08-2024 12:38-0400 Body temperature 99.8 [degF] PHYSICIAN NO [facility] 01-08-2024 12:38-0400 Body weight 73 kg PHYSICIAN NO [facility] 01-08-2024 12:38-0400 Diastolic blood pressure 72 mm[Hg] PHYSICIAN NO [facility] 01-08-2024 12:38-0400 Systolic blood pressure 118 mm[Hg] PHYSICIAN NO [facility] 11-20-2023 16:30-0400 Diastolic blood pressure 65 mm[Hg] Mickie Radha La DO Work Phone: [facility] [employer] 11-20-2023 16:30-0400 Heart rate 64 /min Mickie Radha La DO Work Phone: [facility] 11-20-2023 16:30-0400 Respiratory rate 20 /min Mickie Radha La DO Work Phone: [facility] 11-20-2023 16:30-0400 SaO2% (BldA) [Mass fraction] 99 % Mickie Radha La DO Work Phone: [facility] 11-20-2023 16:30-0400 Systolic blood pressure 120 mm[Hg] Mickie Radha La DO Work Phone: [facility] [employer] 11-20-2023 11:58-0400 Body temperature 97.2 [degF] Mickie Radha La DO Work Phone: [facility] 11-20-2023 11:46-0400 Body height 160 cm Mickie Radha La DO Work Phone: [facility] 11-20-2023 11:46-0400 Body mass index (BMI) [Ratio] 30.01 kg/m2 Mickie La DO Work Phone: [employer] 11-20-2023 11:46-0400 Body weight 76.84 kg Mickie La DO Work Phone: [employer] 08-15-2023 20:57-0500 Heart rate 90 /min Sage Andes DO Work Phone: [employer] 08-15-2023 20:57-0500 Respiratory rate 18 /min Sage Andes DO Work Phone: [facility] [employer] 08-15-2023 20:57-0500 SaO2% (BldA) [Mass fraction] 97 % Sage Andes DO Work Phone: [employer] 08-15-2023 20:42-0500 Diastolic blood pressure 50 mm[Hg] Sage Andes DO Work Phone: [employer] 08-15-2023 20:42-0500 Systolic blood pressure 108 mm[Hg] Sage Andes DO Work Phone: [facility] [employer] 08-15-2023 19:40-0500 Body height 160 cm Sage Andes DO Work Phone: [employer] 08-15-2023 19:40-0500 Body mass index (BMI) [Ratio] 30.11 kg/m2 Sage Andes DO Work Phone: [employer] 08-15-2023 19:40-0500 Body temperature 98.91 [degF] Sage Andes DO Work Phone: [facility] [employer] 08-15-2023 19:40-0500 Body weight 77.11 kg Sage Andes DO Work Phone: [facility] [employer] 07-25-2023 10:50-0500 Diastolic blood pressure 61 mm[Hg] Kisha Rangel MD Work Phone: [facility] [employer] 07-25-2023 10:50-0500 Heart rate 96 /min Kisha Rangel MD Work Phone: [facility] [employer] 07-25-2023 10:50-0500 Respiratory rate 18 /min Kisha Rangel MD Work Phone: [facility] 07-25-2023 10:50-0500 SaO2% (BldA) [Mass fraction] 97 % Kisha Rangle MD Work Phone: [facility] [place] [employer] 07-25-2023 10:50-0500 Systolic blood pressure 104 mm[Hg] Kisha Rangel MD Work Phone: [facility] 07-25-2023 09:45-0500 Body temperature 98.01 [degF] Kihsa Rangel MD Work Phone: [facility] [place] [employer] 07-25-2023 08:21-0500 Body height 160 cm Kisha Rangel MD Work Phone: [facility] 07-25-2023 08:21-0500 Body mass index (BMI) [Ratio] 33.55 kg/m2 Kisha Rangel MD Work Phone: [facility] 07-25-2023 08:21-0500 Body weight 85.91 kg Kisha Rangel MD Work Phone: [facility] 02-27-2023 08:45-0400 Body temperature 98.2 [degF] PHYSICIAN NO [facility] 02-27-2023 08:45-0400 Diastolic blood pressure 83 mm[Hg] PHYSICIAN NO [facility] 02-27-2023 08:45-0400 Heart rate 75 /min PHYSICIAN NO [facility] 02-27-2023 08:45-0400 Respiratory rate 18 /min PHYSICIAN NO [facility] 02-27-2023 08:45-0400 SaO2% (BldA) [Mass fraction] 98 % PHYSICIAN NO [facility] 02-27-2023 08:45-0400 Systolic blood pressure 119 mm[Hg] PHYSICIAN NO [facility] 02-26-2023 20:35-0400 Body weight 92.98 kg PHYSICIAN NO [facility] 02-26-2023 17:40-0400 Body height 160.02 cm PHYSICIAN NO [facility] 02-25-2023 18:28-0400 Respiratory rate 18 /min PHYSICIAN NO [facility] 02-25-2023 18:20-0400 Diastolic blood pressure 50 mm[Hg] PHYSICIAN NO [facility] 02-25-2023 18:20-0400 Heart rate 82 /min PHYSICIAN NO [facility] 02-25-2023 18:20-0400 Systolic blood pressure 91 mm[Hg] PHYSICIAN NO [facility] 02-25-2023 16:00-0400 Body height 160.02 cm PHYSICIAN NO [facility] 02-25-2023 16:00-0400 Body temperature 96.4 [degF] PHYSICIAN NO [facility] 02-25-2023 16:00-0400 Body weight 92.98 kg PHYSICIAN NO [facility] 02-22-2023 17:00-0400 Respiratory rate 20 /min PHYSICIAN NO [facility] 02-22-2023 15:30-0400 SaO2% (BldA) [Mass fraction] 98 % PHYSICIAN NO [facility] 02-22-2023 15:06-0400 Body height 160.02 cm PHYSICIAN NO [facility] 02-22-2023 15:06-0400 Body weight 92.98 kg PHYSICIAN NO [facility] 02-22-2023 14:44-0400 Body temperature 97.7 [degF] PHYSICIAN NO [facility] 02-22-2023 14:42-0400 Diastolic blood pressure 73 mm[Hg] PHYSICIAN NO [facility] 02-22-2023 14:42-0400 Heart rate 104 /min PHYSICIAN NO [facility] 02-22-2023 14:42-0400 Systolic blood pressure 112 mm[Hg] PHYSICIAN NO [facility] 02-19-2023 14:04-0400 Respiratory rate 18 /min PHYSICIAN NO [facility] 02-19-2023 12:16-0400 Body temperature 97.2 [degF] PHYSICIAN NO [facility] 02-19-2023 11:36-0400 SaO2% (BldA) [Mass fraction] 97 % PHYSICIAN NO [facility] 02-19-2023 11:31-0400 Body height 160.02 cm PHYSICIAN NO [facility] 02-19-2023 11:31-0400 Body weight 92.98 kg PHYSICIAN NO [facility] 02-19-2023 11:28-0400 Diastolic blood pressure 74 mm[Hg] PHYSICIAN NO [facility] 02-19-2023 11:28-0400 Heart rate 110 /min PHYSICIAN NO [facility] 02-19-2023 11:28-0400 Systolic blood pressure 115 mm[Hg] PHYSICIAN NO [facility] 02-17-2023 19:23-0400 Respiratory rate 16 /min PHYSICIAN NO [facility] 02-17-2023 18:02-0400 Diastolic blood pressure 68 mm[Hg] PHYSICIAN NO [facility] 02-17-2023 18:02-0400 Heart rate 99 /min PHYSICIAN NO [facility] 02-17-2023 18:02-0400 Systolic blood pressure 108 mm[Hg] PHYSICIAN NO [facility] 02-17-2023 17:58-0400 Body height 160.02 cm PHYSICIAN NO [facility] 02-17-2023 17:58-0400 Body weight 92.98 kg PHYSICIAN NO [facility] 02-07-2023 17:30-0400 Respiratory rate 16 /min PHYSICIAN NO [facility] 02-07-2023 16:28-0400 SaO2% (BldA) [Mass fraction] 97 % PHYSICIAN NO [facility] 02-07-2023 16:25-0400 Body height 160.02 cm PHYSICIAN NO [facility] 02-07-2023 16:25-0400 Body weight 92.98 kg PHYSICIAN NO [facility] 02-07-2023 16:23-0400 Body temperature 97 [degF] PHYSICIAN NO [facility] 02-07-2023 16:23-0400 Diastolic blood pressure 72 mm[Hg] PHYSICIAN NO [facility] 02-07-2023 16:23-0400 Heart rate 94 /min PHYSICIAN NO [facility] 02-07-2023 16:23-0400 Systolic blood pressure 109 mm[Hg] PHYSICIAN NO [facility] 01-26-2023 23:47-0400 Respiratory rate 16 /min PHYSICIAN NO [facility] 01-26-2023 22:37-0400 Body height 160.02 cm PHYSICIAN NO [facility] 01-26-2023 22:37-0400 Body weight 93.44 kg PHYSICIAN NO [facility] 01-26-2023 22:37-0400 Diastolic blood pressure 51 mm[Hg] PHYSICIAN NO [facility] 01-26-2023 22:37-0400 Heart rate 91 /min PHYSICIAN NO [facility] 01-26-2023 22:37-0400 Systolic blood pressure 100 mm[Hg] PHYSICIAN NO [facility] 01-26-2023 22:36-0400 SaO2% (BldA) [Mass fraction] 97 % PHYSICIAN NO [facility] 01-26-2023 22:35-0400 Body temperature 96.8 [degF] PHYSICIAN NO [facility] 01-24-2023 16:44-0400 Respiratory rate 16 /min PHYSICIAN NO [facility] 01-24-2023 16:19-0400 Body temperature 97.5 [degF] PHYSICIAN NO [facility] 01-24-2023 16:19-0400 Diastolic blood pressure 56 mm[Hg] PHYSICIAN NO [facility] 01-24-2023 16:19-0400 Heart rate 95 /min PHYSICIAN NO [facility] 01-24-2023 16:19-0400 SaO2% (BldA) [Mass fraction] 98 % PHYSICIAN NO [facility] 01-24-2023 16:19-0400 Systolic blood pressure 99 mm[Hg] PHYSICIAN NO [facility] 01-24-2023 15:36-0400 Body height 160.02 cm PHYSICIAN NO [facility] 01-24-2023 15:36-0400 Body weight 93.44 kg PHYSICIAN NO [facility] 01-14-2023 13:12-0400 Diastolic blood pressure 62 mm[Hg] PHYSICIAN NO [facility] 01-14-2023 13:12-0400 Heart rate 82 /min PHYSICIAN NO [facility] 01-14-2023 13:12-0400 Respiratory rate 16 /min PHYSICIAN NO [facility] 01-14-2023 13:12-0400 Systolic blood pressure 109 mm[Hg] PHYSICIAN NO [facility] 01-14-2023 10:17-0400 Body height 160.02 cm PHYSICIAN NO [facility] 01-14-2023 10:17-0400 Body weight 92.53 kg PHYSICIAN NO [facility] 01-14-2023 10:15-0400 Body temperature 97.2 [degF] PHYSICIAN NO [facility] 01-14-2023 10:15-0400 SaO2% (BldA) [Mass fraction] 99 % PHYSICIAN NO [facility] 12-08-2022 13:30-0400 Respiratory rate 16 /min PHYSICIAN NO [facility] 12-08-2022 13:24-0400 Diastolic blood pressure 66 mm[Hg] PHYSICIAN NO [facility] 12-08-2022 13:24-0400 Heart rate 85 /min PHYSICIAN NO [facility] 12-08-2022 13:24-0400 Systolic blood pressure 118 mm[Hg] PHYSICIAN NO [facility] 12-08-2022 11:21-0400 Body height 152.4 cm PHYSICIAN NO [facility] 12-08-2022 11:21-0400 Body weight 92.07 kg PHYSICIAN NO [facility] 12-08-2022 11:09-0400 Body temperature 97.3 [degF] PHYSICIAN NO [facility] 11-20-2022 14:48-0400 Body temperature 97.5 [degF] PHYSICIAN NO [facility] 11-20-2022 14:48-0400 Diastolic blood pressure 65 mm[Hg] PHYSICIAN NO [facility] 11-20-2022 14:48-0400 Heart rate 85 /min PHYSICIAN NO [facility] 11-20-2022 14:48-0400 Respiratory rate 16 /min PHYSICIAN NO [facility] 11-20-2022 14:48-0400 SaO2% (BldA) [Mass fraction] 98 % PHYSICIAN NO [facility] 11-20-2022 14:48-0400 Systolic blood pressure 120 mm[Hg] PHYSICIAN NO [facility] 11-20-2022 12:40-0400 Body height 165.1 cm PHYSICIAN NO [facility] 11-20-2022 12:40-0400 Body weight 90.71 kg PHYSICIAN NO [facility] 11-03-2022 11:30-0400 Respiratory rate 18 /min PHYSICIAN NO [facility] 11-03-2022 09:54-0400 Diastolic blood pressure 75 mm[Hg] PHYSICIAN NO [facility] 11-03-2022 09:54-0400 Heart rate 83 /min PHYSICIAN NO [facility] 11-03-2022 09:54-0400 Systolic blood pressure 131 mm[Hg] PHYSICIAN NO [facility] 11-03-2022 09:51-0400 SaO2% (BldA) [Mass fraction] 98 % PHYSICIAN NO [facility] 11-03-2022 09:35-0400 Body temperature 97.7 [degF] PHYSICIAN NO [facility] 11-03-2022 09:25-0400 Body height 152.4 cm PHYSICIAN NO [facility] 11-03-2022 09:25-0400 Body weight 93.44 kg PHYSICIAN NO [facility] 04-26-2022 10:45-0500 Body height 162.56 cm Denzel Diezra Other [employer] Other 04-26-2022 10:45-0500 Body mass index (BMI) [Ratio] 34.84 kg/m2 Denzel Delatorreamadeo Other [employer] Other 04-26-2022 10:45-0500 Body weight 92.08 kg Denzel Ditty Other [employer] Other 04-26-2022 10:45-0500 Diastolic blood pressure 86 mm[Hg] Denzel Delatorreamadeo Other [employer] Other 04-26-2022 10:45-0500 Systolic blood pressure 123 mm[Hg] Denzel Juan Ramonamadeo Other [employer] Other Encounters Encounter Date Encounter Type Care Provider Facility Start: 12-03-2024 End: 12-06-2024 Evaluation and management of inpatient Kit Matt Facility:[facility] Start: 11-23-2024 End: 11-23-2024 ambulatory PHYSICIAN NO [facility] Work Phone: Start: 11-23-2024 End: 11-23-2024 Departed Referred PHYSICIAN NO [facility] Start: 11-15-2024 Non-patient / Non-visit PHYSICIAN NO [facility] Physician [facility] Work Phone: Start: 11-14-2024 End: 11-16-2024 Evaluation and management of inpatient PHYSICIAN NO [facility] [facility] Work Phone: Start: 11-07-2024 Non-patient / Non-visit PHYSICIAN NO [facility] Physician [facility] Work Phone: Start: 11-07-2024 End: 11-10-2024 Evaluation and management of inpatient PHYSICIAN NO [facility] [facility] Work Phone: Start: 11-06-2024 End: 11-06-2024 Office outpatient visit 25 minutes Michael Gurrola MD Work Phone: [facility] Comment on above: Severe episode of re current major depressive disorder, without psychotic features (HCC) (CMS/HCC) (Primary Dx) Start: 11-06-2024 End: 11-06-2024 ambulatory MICHAEL GURROLA Not Available Start: 11-06-2024 End: 11-06-2024 Bamboo flowskeily Gurrola MD Work Phone: [facility] Start: 11-06-2024 End: 11-06-2024 Bamboo flowskeily Gurrola MD Work Phone: [facility] Start: 09-17-2024 End: 09-17-2024 Bamboo flowskeily Gurrola MD Work Phone: [facility] Start: 09-17-2024 End: 09-17-2024 Bamboo flowskeily Gurrola MD Work Phone: [facility] Start: 09-17-2024 End: 09-17-2024 ambulatory MICHAEL GURROLA Not Available Start: 09-17-2024 End: 09-17-2024 Patient encounter procedure Michael Gurrola MD Work Phone: [facility] Comment on above: Abdominal pain in fe male (Primary Dx); Pelvic pain in female Start: 09-16-2024 End: 09-16-2024 Emergency department patient visit NO PCP NO PCP [facility] Start: 09-12-2024 End: 09-12-2024 ambulatory MICHAEL GURROLA Not Available Start: 09-12-2024 End: 09-12-2024 Patient encounter procedure Michael Gurrola MD Work Phone: [facility] Comment on above: Abdominal pain in fe male (Primary Dx) Start: 09-11-2024 End: 09-11-2024 Bamboo flowsheet Michael Gurrola MD Work Phone: [facility] Start: 09-11-2024 End: 09-11-2024 Oksanao andreia Gurrola MD Work Phone: [facility] Start: 09-11-2024 End: 09-11-2024 Office outpatient visit 25 minutes Michael Gurrola MD Work Phone: [facility] Comment on above: Abdominal pain in fe male (Primary Dx) Start: 09-11-2024 End: 09-11-2024 ambulatory MICHAEL GURROLA Not Available Start: 07-30-2024 End: 07-30-2024 Telephone encounter Michael Gurrola MD Work Phone: [facility] Start: 07-22-2024 End: 07-22-2024 ambulatory [facility] Work Phone: Start: 07-22-2024 End: 07-22-2024 Patient encounter procedure [facility] Work Phone: Start: 07-10-2024 End: 07-10-2024 Office outpatient visit 25 minutes Michael Gurrola MD Work Phone: [facility] Comment on above: Right lower quadrant pain (Primary Dx); Pelvic pain in female; Right ovarian cyst Start: 07-10-2024 End: 07-10-2024 Gonzálezboo andreia Gurrola MD Work Phone: [facility] Start: 07-10-2024 End: 07-10-2024 Bamboo flowskeily Gurrola MD Work Phone: [facility] Start: 07-10-2024 End: 07-10-2024 ambulatory MICHAEL GURROLA Not Available Start: 04-10-2024 End: 04-16-2024 Evaluation and management of inpatient Cristiano Singh MD Work Phone: [facility] Comment on above: Pneumoperitoneum (Pr imary Dx); Perforated diverticulum; Peritoneal cavity free air Start: 04-09-2024 End: 04-09-2024 Emergency department patient visit Tyrone Mondragonis DO Work Phone: [facility] Comment on above: Right ovarian cyst ( Primary Dx) Start: 04-02-2024 End: 04-02-2024 Emergency department patient visit Tyrone Benito DO Work Phone: [facility] Comment on above: Right ovarian cyst ( Primary Dx) Start: 03-17-2024 End: 03-17-2024 Emergency department patient visit Prudence Wong MD Work Phone: 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 [facility] Comment on above: Pelvic pain (Primary Dx); Routine general medical examination at a health care facility Start: 02-15-2024 End: 02-15-2024 Patient encounter status [facility] Resident Zan Martinez [employer] Work Phone: Start: 02-07-2024 End: 02-08-2024 Emergency department patient visit MARNIE [facility] Start: 02-07-2024 End: 02-08-2024 Emergency department patient visit NO PCP NO PCP [facility] Start: 02-07-2024 End: 02-07-2024 [facility] Comment on above: Abdominal pain, righ t lower quadrant (Primary Dx); Pelvic pain Start: 02-06-2024 End: 02-06-2024 [facility] Start: 02-06-2024 End: 02-06-2024 Subsequent hospital visit by physician Melida Huang JEWEL STAKER - ROAD ROLLER ENGINEER Work Phone: [facility] Comment on above: Pelvic pain Start: 02-05-2024 End: 02-05-2024 Emergency department patient visit ALEX COWAN [facility] Start: 02-03-2024 End: 02-04-2024 Emergency department patient visit Jess Alexandre Liv DO Work Phone: 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 Svcs Resident 4yr [facility] Comment on above: Pelvic abscess in fe male (Primary Dx); Change or removal of drains Start: 01-22-2024 End: 01-22-2024 ambulatory [facility] Start: 01-19-2024 End: 01-19-2024 Telephone encounter [facility] Work Phone: [facility] Start: 01-15-2024 End: 01-15-2024 ambulatory [facility] Start: 01-14-2024 End: 01-14-2024 Telephone encounter Genna Zuluaga Call Mame garay Comment on above: Pain; Weakness - Gen eralized Start: 01-14-2024 ambulatory [facility] Start: 01-13-2024 End: 01-17-2024 Evaluation and management of inpatient [facility] Start: 01-13-2024 Emergency department patient visit [facility] Start: 01-13-2024 End: 01-13-2024 Telephone encounter Chantelle Zuluaga Call Mame garay Comment on above: Medication Request Start: 01-13-2024 End: 01-13-2024 Emergency department patient visit [facility] Start: 01-09-2024 End: 01-09-2024 ambulatory MICHAEL GURROLA Not Available Start: 01-08-2024 End: 01-08-2024 Emergency department patient visit PHYSICIAN [facility] Work Phone: Start: 01-04-2024 End: 01-04-2024 Telephone encounter Lupe Claros R[facility] [place] [facility] Start: 12-18-2023 End: 12-18-2023 Emergency department patient visit None Provider Facility:[facility] Start: 11-28-2023 End: 11-28-2023 ambulatory [facility] Start: 11-26-2023 End: 11-27-2023 Emergency department patient visit SHEREEN GIRALDO [facility] Start: 11-20-2023 End: 11-20-2023 ambulatory [facility] Start: 11-20-2023 End: 11-20-2023 Subsequent hospital [facility]: [facility] Comment on above: Postoperative pain ( Primary Dx); Menorrhagia with regular cycle; Pelvic pain; Adenomyosis; Pelvic congestion syndrome Start: 10-18-2023 End: 10-18-2023 ambulatory Juan Santillan Facility:[facility] Start: 08-15-2023 End: 08-15-2023 Emergency department patient visit Sage Funes DO Work Phone: [facility] Comment on above: Viral upper respirat ory tract infection (Primary Dx) Start: 07-25-2023 End: 07-25-2023 ambulatory MELIDA HUANG [facility] Start: 07-25-2023 End: 07-25-2023 Subsequent hospital visit by physician Kisha Rangel MD Work Phone: [facility] Comment on above: Chronic GERD; Diarrhea, unspecified type; Gas pain Start: 06-09-2023 End: 06-09-2023 Emergency department patient visit None Provider Facility:[facility] Start: 06-04-2023 End: 06-04-2023 ambulatory None Provider Facility:[facility] Start: 05-05-2023 End: 05-05-2023 ambulatory PHYSICIAN MIHAI [facility] Work Phone: Start: 05-05-2023 End: 05-05-2023 Departed Referred PHYSICIAN [facility] [place] Work Phone: Start: 04-15-2023 End: 04-16-2023 Emergency department patient visit None Provider Facility:[facility] Start: 02-26-2023 End: 02-27-2023 Evaluation and management of inpatient PHYSICIAN NO [facility] [address] [place] Work Phone: Start: 02-25-2023 End: 02-25-2023 ambulatory PHYSICIAN NO [facility] Work Phone: Start: 02-25-2023 End: 02-25-2023 Patient encounter procedure PHYSICIAN NO [facility] - O/P Start: 02-22-2023 End: 02-22-2023 ambulatory PHYSICIAN NO [facility] Work Phone: Start: 02-22-2023 End: 02-22-2023 Patient encounter procedure PHYSICIAN NO [facility] - [facility]P Start: 02-19-2023 End: 02-19-2023 ambulatory PHYSICIAN NO [facility] Work Phone: Start: 02-19-2023 End: 02-19-2023 Patient encounter procedure PHYSICIAN NO [facility] - [facility]/P Start: 02-17-2023 End: 02-17-2023 ambulatory PHYSICIAN NO [facility] Work Phone: Start: 02-17-2023 End: 02-17-2023 Patient encounter procedure PHYSICIAN NO [facility] - [facility]P Start: 02-16-2023 End: 02-16-2023 Departed Referred PHYSICIAN NO [facility] [place] Work Phone: Start: 02-07-2023 End: 02-07-2023 Patient encounter procedure PHYSICIAN NO [facility] - [facility] Start: 01-26-2023 End: 01-26-2023 ambulatory PHYSICIAN NO [facility] Work Phone: Start: 01-26-2023 End: 01-26-2023 Patient encounter procedure PHYSICIAN NO [facility] Labor - O/P Start: 01-24-2023 End: 01-24-2023 ambulatory PHYSICIAN NO [facility] Work Phone: Start: 01-24-2023 End: 01-24-2023 Patient encounter procedure PHYSICIAN NO [facility] - O/P Start: 01-16-2023 End: 01-16-2023 ambulatory None Provider Facility:[facility] Start: 01-14-2023 End: 01-14-2023 ambulatory PHYSICIAN NO [facility] Work Phone: Start: 01-14-2023 End: 01-14-2023 Patient encounter procedure PHYSICIAN NO [facility] - O/P Start: 01-11-2023 End: 01-11-2023 Emergency department patient visit [facility] Facility:[facility] Start: 01-05-2023 End: 01-05-2023 ambulatory None Provider Facility:[facility] Start: 12-08-2022 End: 12-08-2022 Patient encounter procedure PHYSICIAN NO [facility] - O/P Start: 11-20-2022 End: 11-20-2022 ambulatory PHYSICIAN NO [facility] Work Phone: Start: 11-20-2022 End: 11-20-2022 Patient encounter procedure PHYSICIAN NO [facility] - O/P Start: 11-03-2022 End: 11-03-2022 Patient encounter procedure PHYSICIAN NO [facility] - O/P Start: 07-21-2022 End: 07-21-2022 ambulatory Denzel Thomas Other [employer] Other Start: 07-21-2022 Telephone encounter Denzel Thomas [facility] Start: 07-20-2022 End: 07-20-2022 ambulatory Denzel Thomas Other [employer] Other Start: 07-20-2022 Telephone encounter Denzel HENRY [facility] Start: 07-05-2022 End: 07-05-2022 ambulatory Denzel Thomas Other [employer] Other Start: 07-05-2022 Telephone encounter Denzel HENRY G [facility] Start: 06-30-2022 End: 06-30-2022 ambulatory Denzel Thomas Other [employer] Other Start: 06-30-2022 Telephone encounter Denzel HENRY G [facility] Start: 06-14-2022 End: 06-14-2022 ambulatory Denzel Thomas Other [employer] Other Start: 06-14-2022 Telephone encounter Denzel HENRY [facility] Start: 05-30-2022 End: 05-30-2022 ambulatory Denzel Thomas Other [employer] Other Start: 05-30-2022 Telephone encounter Denzel HENRY G [facility] Start: 04-26-2022 End: 04-26-2022 ambulatory Denzel Thomas Other [employer] Other Start: 04-26-2022 [facility] visit new patient Denzel Thomas [facility] Start: 03-21-2022 End: 03-21-2022 ambulatory Hernan Salas Other [employer] Other Start: 03-21-2022 Telephone encounter Hernan Calvo ck [facility] Procedures Date Procedure Procedure Detail Performing Clinician Start: 11-15-2024 Plain X-ray of right hand PHYSICIAN NO FAMILY Start: 04-16-2024 Radiologic exam abdo men 1 view Nicolette España MD Work Phone: Start: 04-15-2024 Blood count complete auto&auto difrntl wbc Aubrie L Isaac JEWEL STAKER - ROAD ROLLER ENGINEER Work Phone: Start: 04-14-2024 Radiologic exam abdo men 1 view Nicolette España MD Work Phone: Start: 04-14-2024 Assay of magnesium Tate n Juan Ramon Isaac JEWEL STAKER - ROAD ROLLER ENGINEER Work Phone: Start: 04-13-2024 Radiologic exam abdo men 1 view Nicolette España MD Work Phone: Start: 04-13-2024 Assay of magnesium Tate n Jaun Ramon Isaac JEWEL STAKER - ROAD ROLLER ENGINEER Work Phone: Start: 04-12-2024 Assay of magnesium Tate n Juan Ramon Isaac JEWEL STAKER - ROAD ROLLER ENGINEER Work Phone: Start: 04-11-2024 End: 04-12-2024 Rhythm ecg 1-3 leads w/interpretation & report Unknown Provider Result Start: 04-11-2024 Blood count complete auto&auto difrntl wbc Aubrie Delatorre Isaac JEWEL STAKER - ROAD ROLLER ENGINEER Work Phone: Start: 04-11-2024 SURGICAL PATHOLOGY REPORT Nicolette España MD Work Phone: Start: 04-10-2024 Cul prsmptv pthgnc o rganism scrn w/colony estimj Cristiano Singh MD Work Phone: Start: 04-10-2024 End: 04-11-2024 LAPAROTOMY EXPLORATORY Cristiano Singh MD Work Phone: Start: 04-10-2024 Blood typing serologic abo Cristiano Singh MD Work Phone: Start: 04-10-2024 Assay of lactate Juanis Palencia PA-C Work Phone: Start: 04-10-2024 Ct abdomen & pelvis w/contrast material Juanis MAHMOOD-C Work Phone: Start: 04-10-2024 Us transvaginal Juanis Palencia PA-C Work Phone: Start: 04-10-2024 Ecg routine ecg w/le ast 12 lds i&r only Juanis Palencia PA-C Work Phone: Start: 04-10-2024 Basic metabolic pane l calcium total Juanis Mendez Palencia PA-C Work Phone: Start: 04-10-2024 Urinalysis microscopic only Juanis Palencia PA-C Work Phone: Start: 04-10-2024 Urnls dip stick/tabl et rgnt auto w/o microscopy Juanis Mendez Palencia PA-C Work Phone: Start: 04-09-2024 Us transvaginal Rebecca Mondragonis DO Work Phone: Start: 04-09-2024 Urinalysis microscopic only Tyrone Benito DO Work Phone: Start: 04-09-2024 Urnls dip stick/tabl et rgnt auto w/o microscopy Tyrone Benito DO Work Phone: Start: 04-09-2024 Basic metabolic pane l calcium total Tyrone Benito DO Work Phone: Start: 04-02-2024 Ct abdomen & pelvis w/contrast material Tyrone Benito DO Work Phone: Start: 04-02-2024 Us transvaginal Rebecca Benito DO Work Phone: Start: 04-02-2024 Comprehensive metabo lic panel Tyrone Benito DO Work Phone: Start: 04-02-2024 Urinalysis [...] Ct abdomen & pelvis w/contrast material Maame Marshall JEWEL STAKER - ROAD ROLLER ENGINEER Work Phone: Start: 02-07-2024 Urinalysis microscopic only Marianela Lizarraga MD Work Phone: Start: 02-07-2024 Urnls dip stick/tabl et rgnt auto w/o microscopy Marianela Lizarraga MD Work Phone: Start: 02-07-2024 End: 02-07-2024 Comprehensive metabolic panel Marianela Lizarraga MD Work Phone: Start: 02-03-2024 Ct abdomen & pelvis w/contrast material Jess J Daigle DO Work Phone: Start: 02-03-2024 Comprehensive metabo lic panel Jess J Daigle DO Work Phone: Start: 02-03-2024 Urine test visual color cmprsn meths Jess J Daigle DO Work Phone: Start: 02-03-2024 Urnls dip stick/tabl et reagent auto microscopy Jess J Daigle DO Work Phone: Start: 01-08-2024 SARS-CoV-2, [...] Adult depression scr eening assessment Lupe Claros [facility] Start: 05-19-2020 Microscopic observat ion [Identifier] in Cervix by Cyto stain Lupe Claros [facility] Plan of Treatment Date Care Activity Detail Author Start: 02-27-2033 DTaP,Tdap and Td Vaccines (9 - Td or Tdap) DTaP,Tdap and Td Vaccines (9 - Td or Tdap) [facility] Start: 02-27-2033 DTaP/Tdap/Td vaccine (9 - Td or Tdap) DTaP/Tdap/Td vaccine (9 - Td or Tdap) [facility] Start: 12-09-2031 DTaP,Tdap and Td Vaccines (8 - Td or Tdap) DTaP,Tdap and Td Vaccines (8 - Td or Tdap) [facility] Start: 02-17-2025 Influenza vaccination Influenza Vaccine (Season Ended) [facility] Start: 02-14-2025 Adult BMI Screening Adult BMI Screening [facility] Start: 02-14-2025 Tobacco Screening Tobacco Screening [facility] Start: 01-21-2025 Adult BMI Screening Adult BMI Screening [facility] Start: 01-21-2025 Tobacco Screening Tobacco Screening [facility] Start: 01-16-2025 Adult BMI Screening Adult BMI Screening [facility] Start: 01-14-2025 Tobacco Screening Tobacco Screening [facility] Start: 01-12-2025 Adult BMI Screening Adult BMI Screening [facility] Start: 01-12-2025 Tobacco Screening Tobacco Screening [facility] Start: 11-23-2024 Urine culture [facility] Start: 11-23-2024 Bacteria identified in Urine by Culture Urine Culture [facility] Start: 11-16-2024 [facility] Start: 11-15-2024 Hospital admission [facility] Start: 11-15-2024 [facility] Start: 11-10-2024 [facility] Start: 11-07-2024 Referral to Salesperson [employer] [facility] Start: 11-07-2024 Hospital admission [facility] Start: 11-06-2024 End: 11-06-2024 Patient encounter procedure 11/06/2024 4:00 PM EDT Office Visit [facility] [address] [place] [phone] Michael Gurrola MD [address] [place] [address] Arrived [facility] Comment on above: Arrived Start: 10-30-2024 Depression Monitoring Depression Monitoring [facility] Start: 09-17-2024 End: 09-17-2024 Patient encounter procedure 09/17/2024 4:15 PM EDT Office Visit [facility] [address] [place] [phone] Michael Gurrola MD [address] [place] [address] [facility] Start: 09-17-2024 End: 09-17-2024 Professional / ancillary services management 09/17/2024 3:00 PM EDT Ancillary Procedure [facility] [address] [place] [phone] [facility] Start: 09-17-2024 End: 09-17-2024 Patient encounter procedure 09/17/2024 11:45 AM EDT Office Visit [facility] [address] [place] [address] Michael Gurrola MD [address] [place] [address] [facility] Start: 09-11-2024 End: 09-11-2024 Patient encounter procedure 09/11/2024 1:30 PM EDT Office Visit [facility] [address] [place] [address] Michael Gurrola MD [address] [place] [address] Arrived [facility] Comment on above: Arrived Start: 08-01-2024 End: 08-01-2024 Patient encounter procedure 08/01/2024 1:45 PM EST Office Visit [facility] [address] [place] [phone] Michael Gurrola MD [address] [place] [address] [facility] Start: 08-01-2024 End: 08-01-2024 Professional / ancillary services management 08/01/2024 1:00 PM EST Ancillary Procedure [facility] [address] [place] [phone] [facility] Start: 07-19-2024 Depression Monitoring Depression Monitoring [facility] Start: 07-10-2024 End: 07-10-2024 Patient encounter procedure 07/10/2024 2:30 PM EST Office Visit [facility] [address] [place] [phone] Michael Gurrola MD [address] [place] [address] Pelvic pain in female; Chronic low back pain without sciatica, unspecified back pain laterality [facility] Comment on above: Pelvic pain in female; Chronic low back pain without sciatica, unspecified back pain laterality Start: 06-04-2024 End: 06-04-2024 Patient encounter procedure 06/04/2024 11:30 AM EST Office Visit [facility] [address] [place] [phone] Asael Tapia, JEWEL STAKER-ROAD ROLLER ENGINEER [address] [place] [facility] [place] [address] [facility] Start: 05-29-2024 End: 05-29-2024 Patient encounter procedure 05/29/2024 2:00 PM EST Office Visit [facility] [address] [place] [address] Nj Bowser MD [address] [place] [address] [place] [address] follow up from surgery 04/10/24 [facility] Comment on above: follow up from surgery 04/10/24 Start: 04-23-2024 End: 04-23-2024 Patient encounter procedure 04/23/2024 4:00 PM EST Office Visit [facility] [address] [place] [address] Mary Ellen Soriano, DO [address] [place] [address] Post op (Francisco 04/10)-ex lap, appy [facility] Comment on above: Post op (04/10)-ex lap, appy Start: 03-22-2024 End: 03-22-2024 Patient encounter procedure 03/22/2024 1:30 PM EDT Office Visit [facility] [address] [place] [phone] [facility] Start: 02-20-2024 End: 02-20-2024 Patient encounter procedure 02/20/2024 1:00 PM EDT Office Visit [facility] [address] [place] [address] Mickie Barrientos, DO [address] [place] [address] P/O follow up infection [facility] Comment on above: P/O follow up infection Start: 02-18-2024 COVID-19 Vaccine ( season) COVID-19 Vaccine ( season) [facility] Start: 02-18-2024 Influenza vaccination [facility] Start: 02-06-2024 End: 02-06-2024 Patient encounter procedure 02/06/2024 4:30 PM EDT Office Visit [facility] [address] [place] [address] Esther Burrell PA-C [address] [place] [address] F/U from admission to [facility] Comment on above: F/U from admission to [facility] Start: 01-18-2024 Influenza vaccination [facility] Start: 01-08-2024 [facility] Start: 01-08-2024 Bacteria identified in Blood by Culture [facility] Start: 01-08-2024 Genital Culture Genital Culture [facility] Start: 01-05-2024 End: 01-05-2024 Patient encounter procedure 01/05/2024 10:00 AM EDT Office Visit [facility] Certified Nurse [employer] Report Developer - [place] [address] [phone] [facility] Certified Nurse [employer] Report Developer - [place] Start: 12-26-2023 End: 12-26-2023 Patient encounter procedure 12/26/2023 11:45 AM EDT Office Visit [facility] [address] [place] [address] Mickie Barrientos DO [address] [place], [place] [phone] 6 wk post-op [facility] 09/12 [facility] Comment on above: 6 wk post-op [facility] 09/12 Start: 12-06-2023 End: 12-06-2023 Patient encounter procedure 12/06/2023 11:30 AM EDT Office Visit [facility] [address] [place] [address] Esther Burrell PA-C [address] [place] [address] 2 wk post-op [facility] 09/12 [facility] Comment on above: 2 wk post-op [facility] 09/12 Start: 11-20-2023 End: 11-20-2023 Laps total hysterect 250 gm/< w/rmvl tube/ovary HYSTERECTOMY VAGINAL LAPAROSCOPIC ROBOTIC ASSISTED Menorrhagia with regular cycle Pelvic pain Adenomyosis Pelvic congestion syndrome 11/20/2023 1:56 PM EDT [facility] Start: 08-29-2023 End: 08-29-2023 Patient encounter procedure 08/29/2023 11:30 AM EDT Office Visit [facility] [address] [place] [address] Mickie Barrientos DO [address] [place] [address] inspecting engineer us for RLQ pain & DUB / discuss Hyst / Kp Pt [facility] Comment on above: inspecting engineer us for RLQ pain & DUB / discuss Hyst / Kp Pt Start: 08-29-2023 End: 08-29-2023 Professional / ancillary services management 08/29/2023 11:00 AM EDT Ancillary Procedure [facility] [address] [place] [address] inspecting engineer us / RLQ pain & DUB [facility] Comment on above: inspecting engineer us / RLQ pain & DUB Start: 08-23-2023 End: 08-23-2023 Patient encounter procedure 08/23/2023 10:30 AM EST Office Visit [facility] [address] [place] [address] Pia Coates, JEWEL STAKER - ROAD ROLLER ENGINEER [address] [phone] 6 wks [facility] Comment on above: 6 wks Start: 07-25-2023 End: 07-25-2023 Esophagogastroduodenoscopy transoral diagnostic EGD ESOPHAGOGASTRODUODENOSCOPY Chronic GERD Diarrhea, unspecified type Gas pain 07/25/2023 9:18 AM EST [facility] Start: 05-19-2023 Screening for malignant neoplasm of cervix Pap Smear [employer] Start: 02-27-2023 Rubella IgG measurement [facility] Start: 02-27-2023 [facility] Start: 02-27-2023 [facility] Start: 02-26-2023 Hospital admission [facility] Start: 02-26-2023 Hospital admission [facility] Start: 02-26-2023 [facility] Start: 02-26-2023 Delivery of Products of Conception, External Approach Delivery of Products of Conception, External Approach [facility] Start: 02-26-2023 Drainage of Amniotic Fluid, Therapeutic from Products of Conception, Via Natural or Artificial Opening Drainage of Amniotic Fluid, Therapeutic from Products of Conception, Via Natural or Artificial Opening [facility] Start: 02-26-2023 Urine culture Urine Culture [facility] Start: 02-25-2023 [facility] Start: 02-25-2023 Hospital admission [facility] Start: 02-22-2023 [facility] Start: 02-22-2023 Hospital admission [facility] Start: 02-22-2023 Bacteria identified in Urine by Culture [facility] Start: 02-19-2023 [facility] Start: 02-19-2023 Hospital admission [facility] Start: 02-17-2023 [facility] Start: 02-17-2023 Hospital admission [facility] Start: 02-17-2023 COVID-19 Vaccine ( season) COVID-19 Vaccine ( season) [facility] Start: 02-16-2023 Streptococcus agalactiae culture Group B Streptococcus Culture [facility] Start: 02-07-2023 [facility] Start: 02-07-2023 Hospital admission [facility] Start: 01-26-2023 [facility] Start: 01-26-2023 Hospital admission [facility] Start: 01-24-2023 Hospital admission [facility] Start: 01-24-2023 End: 01-24-2023 [facility] Start: 01-17-2023 Influenza vaccination Flu [facility] (#1) [facility] Start: 01-14-2023 [facility] Start: 01-14-2023 Hospital admission [facility] Start: 01-05-2023 Adult BMI Screening Adult BMI Screening [facility] [employer] [facility] Start: 01-05-2023 Depression Screening Depression Screening [facility] [employer] [facility] Start: 01-05-2023 Tobacco Screening Tobacco Screening [facility] Start: 12-08-2022 [facility] Start: 12-08-2022 Hospital admission [facility] Start: 11-20-2022 [facility] Start: 11-20-2022 Hospital admission [facility] Start: 11-03-2022 [facility] Start: 11-03-2022 Hospital admission [facility] Start: 09-12-2016 Screening for malignant neoplasm of cervix Pap smear [facility] [employer] Start: 09-12-2013 Adult BMI Follow Up Plan Adult BMI Follow Up Plan [facility] [employer] [facility] Start: 09-12-2013 Hepatitis C screening Hepatitis C screen [facility] [place] [employer] Start: 09-12-2010 HIV screening HIV screen [facility] [employer] Start: 02-12-2003 Varicella vaccine (2 of 2 - 2-dose childhood series) Varicella vaccine (2 of 2 - 2-dose childhood series) [employer] Start: 09-12-2001 Pneumococcal 0-64 years Vaccine (1 of 2 - PCV) Pneumococcal 0-64 years Vaccine (1 of 2 - PCV) [facility] [employer] Start: 03-15-1996 COVID-19 Vaccine (#1) COVID-19 Vaccine (#1) [employer] Start: 1995 Tobacco Counseling Tobacco Counseling [facility] Bacteria identified in Genital specimen by Aerobe culture [facility] End: 02-03-2024 Blood Culture 1 [employer] Comment on above: One Time for 1 Occurrences starting 01/17 until 02/03/2024 CT Abdomen and Pelvi s W contrast IV CT ABDOMEN PELVIS W IV CONTRAST Additional Contrast? None Imaging STAT 04/02/2024 12:29 PM EDT [employer] Hepatitis B virus jennings rface Ag [Presence] in Serum or Plasma by Immunoassay [facility] End: 11-20-2023 INITIATE PACU OXYGEN THERAPY PROTOCOL Initiate PACU Oxygen Therapy Protocol Respiratory Care Routine Continuous until discontinued starting 11/20/2023 [employer] Comment on above: Continuous until discontinued starting 0 11/20/2023 Oxygen therapy [Mini mum Data Set] Initiate Oxygen Therapy Protocol Respiratory Care Routine As Needed until discontinued starting 11/20/2023 [employer] Comment on above: As Needed until discontinued starting Oxygen therapy [Mini mum Data Set] Initiate Oxygen Therapy Protocol Respiratory Care Routine Daily until discontinued starting 04/11/2024 [employer] Comment on above: Daily until discontinued starting 2023 Patient Education [facility] Work Phone: Patient referral [facility] Work Phone: End: 11-20-2023 , urine POCT , urine POCT Point of Care Testing Routine One Time for 1 Occurrences starting 11/20/2023 until 11/20/2023 [employer] Comment on above: One Time for 1 Occurrences starting 08/2023 until 11/20/2023 Reagin Ab [Presence] in Serum by RPR [facility] Surgical Pathology Surgical Path ology Lab Routine Chronic GERD Diarrhea, unspecified type Gas pain Release Upon Ordering for 1 Occurrences starting 07/25/2023 [employer] Work Phone: Comment on above: Release Upon Ordering for 1 Occurrences starting 07/25/2023 Surgical Pathology Surgical Path ology Lab Routine Menorrhagia with regular cycle Pelvic pain Adenomyosis Pelvic congestion syndrome Release Upon Ordering for 1 Occurrences starting 11/20/2023 [employer] Work Phone: Comment on above: Release Upon Ordering for 1 Occurrences starting 11/20/2023 End: 11-20-2023 SURGICAL PATHOLOGY REPORT SURGICAL PATHOLOGY REPORT Lab Routine Once for 1 Occurrences starting 11/20/2023 until 11/20/2023 [employer] Comment on above: Once for 1 Occurrences starting 11/20/19 24 until 11/20/2023 Surgical pathology study Surgica l Pathology Lab Routine Peritoneal cavity free air Release Upon Ordering for 1 Occurrences starting 04/10/2024 [email or web address] Comment on above: Release Upon Ordering for 1 Occurrences starting 04/10/2024 End: 03-17-2024 US Pelvis transvaginal [employer] Work Phone: Comment on above: Once for 1 Occurrences starting 03/17/20 until 03/17/2024 End: 02-06-2024 Vaginitis DNA Probe [employer] Comment on above: 1 Occurrences starting 02/06/2024 until 02/06/2024 Immunizations Immunization Date Immunization Notes Care Provider Fa cili 02-27-2023 tetanus toxoid, redu hoda diphtheria toxoid, and acellular pertussis vaccine, adsorbed PHYSICIAN NO [facility] 12-08-2021 measles, mumps and rubella virus vaccine PHYSICIAN NO [facility] 12-08-2021 tetanus toxoid, redu hoda diphtheria toxoid, and acellular pertussis vaccine, adsorbed PHYSICIAN NO [facility] 12-27-2018 tetanus toxoid, redu hoda diphtheria toxoid, and acellular pertussis vaccine, adsorbed [facility] Work Phone: [facility] 07-26-2014 measles, mumps and rubella virus vaccine [facility] Work Phone: [facility] 04-24-2014 influenza, seasonal, injectable, preservative free [facility] Work Phone: [facility] 04-24-2014 influenza virus vaccine, unspecified formulation Lupe STEPHENSON [facility] 11-20-2002 diphtheria, tetanus toxoids and acellular pertussis vaccine, unspecified formulation [facility] Work Phone: [facility] 11-20-2002 haemophilus influenz ae type b conjugate and Hepatitis B vaccine [facility] Work Phone: [facility] 11-20-2002 measles, mumps and rubella virus vaccine [facility] Work Phone: [facility] 11-20-2002 varicella virus vaccine Cent [facility] Work Phone: [facility] 04-03-2002 diphtheria, tetanus toxoids and acellular pertussis vaccine, unspecified formulation [facility] Work Phone: [facility] 04-03-2002 haemophilus influenz ae type b vaccine, conjugate unspecified formulation [facility] Work Phone: [facility] 04-03-2002 poliovirus vaccine, inactivated [facility] Work Phone: [facility] 02-07-2002 diphtheria, tetanus toxoids and acellular pertussis vaccine, unspecified formulation [facility] Work Phone: [facility] 02-07-2002 haemophilus influenz ae type b conjugate and Hepatitis B vaccine [facility] Work Phone: [facility] 02-07-2002 poliovirus vaccine, inactivated [facility] Work Phone: [facility] 12-05-2001 diphtheria, tetanus toxoids and acellular pertussis vaccine, unspecified formulation [facility] Work Phone: [facility] 12-05-2001 haemophilus influenz ae type b conjugate and Hepatitis B vaccine [facility] Work Phone: [facility] 12-05-2001 poliovirus vaccine, inactivated [facility] Work Phone: [facility] 10-31-2000 diphtheria, tetanus toxoids and acellular pertussis vaccine, unspecified formulation [facility] Work Phone: [facility] 10-31-2000 measles, mumps and rubella virus vaccine [facility] Work Phone: [facility] 10-31-2000 poliovirus vaccine, inactivated [facility] Work Phone: [facility] 11-01-1996 diphtheria, tetanus toxoids and acellular pertussis vaccine, unspecified formulation [facility] Work Phone: [facility] 11-01-1996 haemophilus influenz ae type b vaccine, conjugate unspecified formulation [facility] Work Phone: [facility] 11-01-1996 measles, mumps and rubella virus vaccine [facility] Work Phone: [facility] 04-17-1996 DTP-Haemophilus influenzae type b conjugate vaccine [facility] Work Phone: [facility] 04-17-1996 hepatitis B vaccine, pediatric or pediatric/adolescent dosage [facility] Work Phone: [facility] 04-17-1996 trivalent poliovirus vaccine, live, oral [facility] Work Phone: [facility] 02-01-1996 DTP-Haemophilus influenzae type b conjugate vaccine [facility] Work Phone: [facility] 02-01-1996 trivalent poliovirus vaccine, live, oral [facility] Work Phone: [facility] 1995 DTP-Haemophilus influenzae type b conjugate vaccine [facility] Work Phone: [facility] 1995 hepatitis B vaccine, pediatric or pediatric/adolescent dosage [facility] Work Phone: [facility] 1995 trivalent poliovirus vaccine, live, oral [facility] Work Phone: [facility] 1995 hepatitis B vaccine, pediatric or pediatric/adolescent dosage [facility] Work Phone: [facility] Payers Date Payer Category Payer Private Health Insurance [facility] MEDICAID [id number] 2022 Unknown [id number] 2022 Medicaid [employer] HMO [id number] 2022-Present [phone] [address] [place] [address] [id number] 2018 Medicaid [id number] 1995 Unknown [id number] 2.16.840.1.228095.3.579.2. 174 1995 Unknown [id number] 2.16840.1.048178.3.579.2. 718 1995 Unknown [id number] 2.16.840.1.732105.3.579.2. 718 1995 Unknown [id number] 2.16.840.1.808328.3.579.2. 718 1995 Unknown [id number] 2.16.840.1.979079.3.579.2. 718 1995 Unknown [id number] 2.16.840.1.668787.3.579.2. 718 1995 Unknown [id number] 2.16.840.1.052250.3.579.2. 718 1995 Unknown [id number] 2.16.840.1.748944.3.579.2. 718 1995 Unknown [id number] 2.16.840.1.845115.3.579.2. 718 1995 Unknown [id number] 2.16.840.1.367457.3.579.2. 1286 1995 Unknown [id number] 2.16.840.1.046829.3.579.2. 1286 1995 Unknown [id number] 2.16.840.1.019109.3.579.2. 1285 1995 Unknown [id number] 2.16.840.1.012271.3.579.2. 128 1995 Unknown [id number] 2.16.840.1.452927.3.579.2. 1285 1995 Unknown [id number] 2.16.840.1.359635.3.579.2. 128 1995 Unknown [id number] 2.16.840.1.699429.3.579.2. 1285 1995 Unknown [id number] 2.16840.1.821146.3.579.2. 173 1995 Unknown [id number] 2.16.840.1.160767.3.579.2. 173 1995 Unknown [id number] 2.16.840.1.456058.3.579.2. 173 1995 Unknown [id number] 2.16.840.1.407318.3.579.2. 173 1995 Unknown [id number] 2.16840.1.915537.3.579.2. 173 1995 Unknown [id number] 2.16.840.1.658495.3.579.2. 173 1995 Unknown [id number] 2.16.840.1.680715.3.579.2. 173 1995 Unknown [id number] 2.16.840.1.835720.3.579.2. 173 1995 Unknown [id number] 2.16.840.1.106638.3.579.2. 173 1995 Unknown [id number] 2.16.840.1.271773.3.579.2. 173 1995 Unknown [id number] 2.16.840.1.459921.3.579.2. 173 1995 Unknown [id number] 2.16.840.1.816265.3.579.2. 173 1995 Unknown [id number] 2.16.840.1.934326.3.579.2. 173 1995 Unknown [id number] 2.16.840.1.170372.3.579.2. 1259 1995 Unknown [id number] 2.16.840.1.974805.3.579.2. 1259 1995 Unknown [id number] 2.16.840.1.198159.3.579.2. 9 1995 Unknown [id number] 2.16.840.1.024746.3.579.2. 9 1995 Unknown [id number] 2.16.840.1.163089.3.579.2. 9 1995 Unknown [id number] 2.16.840.1.018028.3.579.2. 1259 Self-pay Self Pay [id number] Unknown [id number] 2.16.840.1.912955.19 Unknown Kimberly / [id number] Social History Date Type Detail Facility Start: 07-25-2023 End: 11-06-2024 Sex Assigned At [facility] Start: 06-21-2022 End: 11-15-2024 Tobacco smoking status ORIS Smoker (finding) [facility] Start: 1995 Sex Assigned At Female [facility] Start: 07-24-2023 Tobacco smoking status ORIS Never smoked tobacco [facility] Start: 04-25-2023 End: 07-24-2023 Tobacco use and exposure Smokeless tobacco non-user [facility] Start: 07-25-2023 End: 02-15-2024 Alcohol intake Ex-drinker (finding) [facility] [employer] [facility] Start: 07-25-2023 End: 11-06-2024 History of Social function [facility] Patient Health Questionnaire 9 item (PHQ-9) total score [Reported] 23 [facility] Start: 07-19-2023 Alcohol Comment occ [employer] [facility] Start: 1995 Sex Assigned At Not on file [facility] How often to you hav e a drink containing alcohol? Never [facility] Start: 02-15-2024 End: 04-02-2024 Tobacco smoking status ORIS [facility] History of tobacco use Cigarette Smoker [employer] Has the [employer], [employer], oil, or water company threatened to shut off services in your home in past 12Mo No [facility] [employer] (I/We) worried wheth er (my/our) food would run out before (I/we) got money to buy more. Never true [facility] Start: 04-25-2023 Tobacco smoking status ORIS Occasional tobacco smoker [facility] Start: 01-23-2024 End: 11-06-2024 Alcoholic beverage intake Lifetime non-drinker (finding) [facility] Start: 05-03-2023 Education 13 [facility] Start: 07-22-2024 End: 11-25-2024 Sex Female (finding) [facility] Start: 06-30-2020 Tobacco smoking status ORIS Ex-smoker [facility] Start: 04-28-2020 End: 02-15-2024 Tobacco Comment Down to 2-3 cig/day with [facility] Goals Date Patient Goal Desired Activity /State Personal health goal Comment on above: Formatting of this n ote might be different from the original. Evaluation of progress towards goal: progressing towards safe discharge from hospital Functional Status Date Assessment Result Facility 11-16-2024 Functional status Patient at Baseline [facility] Work Phone: 11-15-2024 Functional status Disability Sta tus Patient at Baseline [facility] Work Phone: 11-10-2024 Functional status Patient at Baseline [facility] Work Phone: 11-07-2024 Functional status Functional Sta tus Comment Independent with all ADLs and IADLs. [facility] Work Phone: 02-27-2023 Functional status Patient at Baseline [facility] Work Phone: Mental Status Date Assessment Result Facility 11-16-2024 Cognitive function Cognitive Sta tus Patient at Baseline [facility] Work Phone: 11-10-2024 Cognitive function Cognitive Sta tus Patient at Baseline [facility] Work Phone: 02-27-2023 Cognitive function Cognitive Sta tus Patient at Baseline [facility] Work Phone: Clinical Notes 04-26-2022 to 11-16-2024 Note Date & Type Note Facility 11-16-2024 Discharge summary [facility] 11-15-2024 History and physical note Note Date/Time November 15, 2024 11:57am [facility] [address] [place] [address] Psychiatry H&P Signed Patient: Barbra Claros MR#: [id number] : 1995 Acct:[id number] Age/Sex: 29 / F Adm Date: 5 Loc: Room: [address] [place] [address] Type: ADM IN Attending Dr: Dashawn Moreno [...] noted [facility]. She noted [...] this with the resident as noted below. [facility] Medical History (Updated 11/15/24 @ 05:33 by Ameya Salguero DO) Headache Dysphagia Crohn's disease Hx of blood transfusion reaction Ovarian cyst Stomach pain Problem List clean-up per [facility] removal of cyst in 09/20/2019 Problem List clean-up per request of Phys. [facility] Depression was on medication, stopped taking medication [...] 8mos (in recovery) Social History Comments: mobile [employer] Meds Medications and Allergies Allergies chlorpheniramine (From [...] Appearance Clear Urine pH 7.0 Ur Specific Fork 1.031 H Urine Protein 20 H Urine [...] signed by DO ARABELLA Munoz> 11/15/24 1059 [facility] Work Phone: 1(917) 718-110605-30-2025 [place] [address] Psychiatry H&P Signed Patient: Barbra Claros MR#: [id number] : 1995 Acct:[id number] Age/Sex: 29 / F Adm Date: 5 Loc: Room: [address] [place] [address] Type: ADM IN Attending Dr: Dashawn Moreno [...] noted that [facility]. She noted [...] confirmed this withthe resident as noted below. [facility] Medical History (Updated 11/15/24 @ 05:33 [...] Appearance Clear Urine pH 7.0 Ur Specific Fork 1.031 H Urine Protein 20 H Urine [...] 1049 Signed By: 11/15/24 1157 11/15/24 1059 [facility]05-25-2025 [place] [address] Discharge Summary Signed Patient: Barbra Claros MR#: [id number] : 1995 Acct:[id number] Age/Sex: 29 / F Adm Date: 5 Loc: Room: [address] [place] [address]: Kit Gutierrez MD Copies to: [...] She was at an appointment with her ob-inspecting engineer provider and he asked her to go [...] who she listed as a support and contact clerk. She was agreeable to treatment and hopes [...] Specifically last Monday, she was sent to [place] ED due to panic attacks at which time they suggested that she voluntarily admit herself to [address] but said she was talked out of it by her mother. Has been wanting to increase her venlafaxine dose recently. Tells me that she does not have a PCP or mental provider in the community but her medications are managed by her solar energy consultant and designer Dr. Gurrola. This morning she denies SI, [...] self or stop treatment, but to call [facility], 911 or come to the nearest emergency [...] QAM Patient Comments: with breakfast Follow Up: Psychiatric [Outside] (new referral) [facility] [place] [Outside] (for any urgent medical needs) Exam Physical Exam Vital Signs: Temp Pulse Resp BP Pulse Ox O2 Del Method 98.2 F 95 16 119/72 97 Room Air 11/09/24 19:59 11/09/24 19:59 11/09/24 19:59 11/09/24 19:59 11/09/24 19:59 11/09/24 21:00 Documented By: Kit Gutierrez MD 5 0730 Signed By: 11/10/24 0731 [facility]05-24-2025 Progress note Author Kit fox [facility] Note Date/Time November 09, 2024 7:31a m [facility] [address] [place] [address] Psychiatry Progress Note Signed Patient: Barbra Claros MR#: [id number] : 1995 Acct:[id number] Age/Sex: 29 / F Adm Date: 5 Loc: Room: [address] [place] [address] Type : ADM IN Attending Dr: Kit Gutierrez MD Copies to: ~ Date of Service: 11/09/2024 Subjective Subjective Narrative: No overnight events. Patient said that Lul is helping with anxiety and noticed a [...] Kit Gutierrez MD 5 0729 Signed By: <Electronically signed by Kit Gutierrez MD> 11/09/24 0731 [facility] Work Phone: 1(234) 968-581205-24-2025 [place] [address] Psychiatry Progress Note Signed Patient: Barbra Claros MR#: [id number] : 1995 Acct:[id number] Age/Sex: 29 / F Adm Date: 5 Loc: Room: [address] [place] [address] Type : ADM IN Attending Dr: Kit Gutierrez MD Copies to: ~ Date of Service: 11/09/2024 Subjective Subjective Narrative: No overnight events. Patient said that Lul is helping with anxiety and noticed a [...] MD 5 0729 Signed By: 11/09/24 0731 [facility]05-23-2025 Progress note Author Kit fox [facility] Note Date/Time November 08, 2024 1:42p m [facility] [address] [place] [address] Psychiatry Progress Note Signed Patient: Barbra Claros MR#: [id number] : 1995 Acct:[id number] Age/Sex: 29 / F Adm Date: 5 Loc: Room: [address] [place] [address] Type : ADM IN Attending Dr: Kit [...] <Electronically signed by Kit Gutierrez MD> 11/08/24 [facility] Work Phone: 1(773) 626-948405-23-2025 [place] [address] Psychiatry Progress Note Signed Patient: Barbra Claros MR#: [id number] : 1995 Acct:[id number] Age/Sex: 29 / F Adm Date: 5 Loc: Room: [address] [place] [address] Type : ADM IN Attending Dr: Kit [...] Gutierrez MD 5 1016 Signed By: 11/08/[address] [place], [place] 4930405-22-2025 History and physical note Author Kit fox [facility] Note Date/Time November 07, 2024 1:12p m [facility] [address] [place] [address] Psychiatry H&P Signed Patient: Barbra Claros MR#: [id number] : 1995 Acct:[id number] Age/Sex: 29 / F Adm Date: 5 Loc: 1S Room: [address] [place] [address] Type: ADM IN Attending Dr: Kit Gutierrez [...] She was at an appointment with her ob-inspecting engineer provider and he asked her to go [...] who she listed as a support and contact clerk. She was agreeable to treatment and hopes [...] Specifically last Monday, she was sent to [place] ED due to panic attacks at which time they suggested that she voluntarily admit herself to [address] but said she was talked out of it by her mother. Has been wanting to increase her venlafaxine dose recently. Tells me that she does not have a PCP or mental provider in the community but her medications are managed by her solar energy consultant and designer Dr. Gurrola. This morning she denies SI, HI, delusions. 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, vapes every day with nicotine Living: Lives in a trailer in [place] with her 4 children Employment: Unemployed Review [...] Extrem: normal to inspection and full ROM [facility] Medical History Headache Dysphagia Crohn's disease [...] Appearance Clear Urine pH 5.5 Ur Specific Fork 1.015 Urine Protein Negative Urine Glucose (UA) [...] <Electronically signed by Kit Gutierrez MD> 11/07/24 131 [facility] Work Phone: 1(485) 470-393605-22-2025 [place] [address] Psychiatry H&P Signed Patient: Barbra Claros MR#: [id number] : 1995 Acct:[id number] Age/Sex: 29 / F Adm Date: 5 Loc: Room: [address] [place] [address] Type: ADM IN Attending Dr: Kit Gutierrez [...] She was at an appointment with her ob-inspecting engineer provider and he asked her to go [...] who she listed as a support and contact clerk. She was agreeable to treatment and hopes [...] Specifically last Monday, she was sent to [place] ED due to panic attacks at which time they suggested that she voluntarily admit herself to [address] but said she was talked out of it by her mother. Has been wanting to increase her venlafaxine dose recently. Tells me that she does not have a PCP or mental provider in the community but her medications are managed by her solar energy consultant and designer Dr. Gurrola. This morning she denies SI, HI, delusions. 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 [facility] Hemorrhagic cyst of right ovary Problem List clean-up per request of Phys. EHR [facility] Kidney stones with last Problem List clean-up per request of Phys. [facility] No pertinent past medical history Problem List clean-up per request of Phys. [facility] Surgical History History of partial hysterectomy Family [...] Appearance Clear Urine pH 5.5 Ur Specific Fork 1.015 Urine Protein Negative Urine Glucose (UA) [...] MD 5 1121 Signed By: 11/07/24 1312 [facility]05-22-2025 Evaluation note* Diagnosis Onset Date Resolution Status Admit Date Major depressive disorder acute November 07, 2024 1:28am Suicidal ideation acute October 1:28am [facility] Work Phone: 1(475) 208-822805-22-2025 Evaluation note* Diagnosis Onset Date Resolution Status Admit Date Major depressive disorder acute November 07, 2024 1:28am Suicidal ideation acute October 1:28am Major depressive disorder acute November 14, 2024 11:39pm Suicidal ideation acute October 11:39pm [facility] Work Phone: 1(490) 875-533405-22-2025 Evaluation note* Diagnosis Onset Date Resolution Status Admit Date Major depressive disorder resolved November 07, 2024 1:28am Suicidal ideation resolved October 1:28am Major depressive disorder resolved November 14, 2024 11:39pm Suicidal ideation resolved October 11:39pm [facility] Work Phone: 1(709) 709-467205-21-2025 History of Present illness Narrative* Michael Gurrola [...] Review Audit Reviewed by Fe Silveira MA (Urogynecology Physician) on 11/06/24 at 1553 Medication Order Taking? Sig Documenting Provider Last Dose Status hydrOXYzine HCl (Atarax) 50 MG tablet [id number] Yes TAKE 1 TABLET BY MOUTH THREE TIMES DAILY NEEDED FOR ITCHING Michael Gurrola MD Active venlafaxine XR (Effexor XR) 75 MG 24 hr capsule [id number] Take 75 mg by mouth in the morning. Take with meals. Michael Gurrola MD Active Allergies Allergen Reactions Chlorpheniramine Anaphylaxis and Other Dextromethorphan Other Dm-Apap-Cpm Angioedema and Swelling Throat Swells Pseudoephedrine Other Past Medical History: Diagnosis Date ADHD (attention deficit hyperactivity disorder) (CMS/HCC) Anxiety History of being hospitalized blood transfusion, bronchitis, pneumonia Ovarian cyst PTSD (post-traumatic stress disorder) (CMS/[facility]) Past Surgical History: Procedure Laterality Date COSMETIC SURGERY nose age 4 CT ANGIOGRAM HEART CORONARY 01/13/2024 CT ANGIOGRAM TAVR 01/13/2024 HYSTERECTOMY OTHER SURGICAL HISTORY PELVIC LAPAROSCOPY 11/2019 with ovarian cystectomy SALPINGECTOMY Bilateral VAGINAL DELIVERY x3 2014, 2020, 2021 Physical Exam: Objective OBGyn Exam Assessment/Plan ICD-10-CM 1. Severe episode of recurrent major depressive disorder, without psychotic features (HCC) (CMS/HCC) F33.2 I have encouraged the pt to go to [facility] and request to speak with a mental health counselor. I suspect she needs to be admitted. She will need social media marketing specialist to assist with childcare. She has assured me she will go No orders of the defined types were placed in this encounter. documented in this encounterUniversity Health Lakewood Medical [id number] History of Present illness Narrative* Michael Gurrola MD - 09/17/2024 11:45 AM EDT Pt had 4days of relief following last injection. By Monday morning the pain returned with intensityand she went to [place] ER. 12cc lidocaine again infiltrated into inferior extent of scar. Nevaeh well ICD-10-CM 1. Abdominal pain in female R10.9 2. Pelvic pain in female R10.[address] Reyes, pain specialist, to eval for potential nerve block documented in this encounterUniversity Health Lakewood Medical [id number] History of Present illness Narrative* Michael Gurrola [...] Review Audit Reviewed by Fe Silveira MA (Urogynecology Physician) on 09/12/24 at 1302 Medication Order Taking? Sig Documenting Provider Last Dose Status venlafaxine XR (Effexor XR) 75 MG 24 hr capsule [id number] Take 75 mg by mouth in the morning. Take with meals. Michael Gurrola MD Active Allergies Allergen Reactions Chlorpheniramine Anaphylaxis and Other Dextromethorphan Other Dm-Apap-Cpm Angioedema and Swelling Throat Swells Pseudoephedrine Other Past Medical History: Diagnosis Date ADHD (attention deficit hyperactivity disorder) ([facility]) Anxiety History of being hospitalized blood transfusion, bronchitis, pneumonia Ovarian cyst PTSD (post-traumatic stress disorder) (CMS/[facility]) Past Surgical History: Procedure Laterality Date COSMETIC [...] placed in this encounter. documented in this encounterUniversity Health Lakewood Medical [id number] History of Present illness Narrative* Michael Gurrola [...] of a pelvicabscess. She was transferred to [place]. She underwent CT guided drainage. After 2 weeks sh recovered, but her RLQ pain continues. In 04/11, she was seen at [facility] and CT showed air in [...] into the back She has been to [place] ER twice in last week. Sono shows [...] Review Audit Reviewed by Fe Silveira MA (Urogynecology Physician) on 07/10/24 at 1424 Medication Order Taking? Sig Documenting Provider Last Dose Status Discontinued 07/10/24 1424 Discontinued 07/10/24 1424 venlafaxine XR (Effexor XR) 75 MG 24 hr capsule [id number] Take 75 mg by mouth in the morning. Take with meals. Michael Gurrola MD Active Allergies Allergen Reactions Chlorpheniramine Anaphylaxis and Other Dextromethorphan Other Dm-Apap-Cpm Angioedema and Swelling Throat Swells Pseudoephedrine Other Past Medical History: Diagnosis Date ADHD (attention deficit hyperactivity disorder) ([facility]) Anxiety History of being hospitalized blood transfusion, bronchitis, pneumonia Ovarian cyst PTSD (post-traumatic stress disorder) ([facility]) Past Surgical History: Procedure Laterality Date COSMETIC [...] placed in this encounter. documented in this encounterUniversity Health Lakewood Medical [id number] Telephone encounter Note* Telephone Encounter - Irena Damon - 07/30/2024 1:22 PM EST Pt called and needs to reschedule her US and OV with BJP, she currently has RSV and the Flu in her house, she now has her records, best call back number is [phone] [facility] [id number] Miscellaneous Notes* Telephone Encounter - Irena Damon - 07/30/2024 1:22 PM EST Pt called and needs to reschedule her US and OV with BJP, she currently has RSV and the Flu in her house, she now has her records, best call back number is [phone] documented in [address] encounterNOMercy Hospital St. John'[id number] History of Present illness Narrative* Michael Gurrola [...] of a pelvicabscess. She was transferred to [place]. She underwent CT guided drainage. After 2 weeks sh recovered, but her RLQ pain continues. In 04/11, she was seen at [facility] and CT showed air in the peritoneum. She had exploratory laparotomy and revision of the vag cuff. I hve reviewed Dr Bowser op note. He closed the vag apex. The right ovary was shrouded by adhesion which were lysed, thereby freeingthe ovary. He descibes the ovary as normal. Since then, she cont to have daily RLQ pain that radiates down the leg and into the back [address] [facility] shows a 6cm complex/septated right ovary [...] Review Audit Reviewed by Fe Silveira MA (Urogynecology Physician) on 07/10/24 at 1424 Medication Order Taking? Sig Documenting Provider Last Dose Status Discontinued 07/10/24 1424 Discontinued 07/10/24 1424 venlafaxine XR (Effexor XR) 75 MG 24 hr capsule [id number] Take 75 mg by mouth in the morning. Take with meals. Michael Gurrola MD Active Allergies Allergen Reactions Chlorpheniramine Anaphylaxis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 Procedures Referred By Siomara dumas Referred To Contact Internal Medicine Diagnoses Routine general medical examination at a [facility] care facility Lisha Owusu MD [address] [address] [facility] [address] [place] [address] Referral ID Status Reason Start Date Expiration Date Visits Requested Visits Authorized [id number] Pending Review Specialty Services Required 02/15/2024 02/14/2025 1 1 [facility] for visit NarrativePATIENT HERE AT THE REQUEST OF DR. 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, NAUSEA& VOMITING, ABDOMINAL PAIN, BLOOD IN STOOLMuskogee Cabe na Mala Other Chief Complaint and Reason for Visit [...] Suicidal ideation November 14, 2024 11:39 pm Chief Complaint Admit Date Mental Health Eval November 07, 2024 1:28a m Mental Health Eval November 07, 2024 11:21 am SI November 14, 2024 11:39 pm SI November 15, 2024 10:49 am Unknown November 23, 2024 8:25p m Advance Directives No Advanced Directives Records Found [...] Agents on File Name Relationship Healthcare Agent Relationshi p Communication Seth Bravo Spouse Primary Decision [...] Chronic GERD Diarrhea, unspecified type Gas pain K21.5QRD-79-IDKewpuhy GERD R19.2PLU-21-KDHiecsvyf, unspecified type R14.9WCO-99-HHAbk pain Procedures AL ESOPHAGOGASTRODUODENOSCOPY TRANSORAL DIAGNOSTIC AL EGD TRANSORAL BIOPSY SINGLE/MULTIPLE AL EGD BALLOON DILATION ESOPHAGUS <30 MM DIAM EGD Kisha Rangel MD [address] [place] [address] [employer] [address] [place] [address] Referral ID Status Reason Start Date Expiration Date Visits Re quested Visits Authorized [id number] 1 1 Reason Comments Chest Pain Shortness [...] POSSIBLE LAPAROSCOPIC COLPOPEXY Mickie Barrientos, DO [address] [place] [address] [facility] [address] [place] [address] Referral ID Status Reason Start Date Expiration Date Visits Re quested Visits Authorized [id number] 1 1 Reason Comments Abdominal Pain Pt [...] To Contact Diagnoses Pneumoperitoneum Perforated diverticulum Nicolette España MD [address] [place] [address] [address] [place] [address] [facility] [address] [place] [address] Referral ID Status Reason Start Date Expiration Date Visits Re quested Visits Authorized [id number] 1 1 Reason Onset Date Comments Pain [...] Michael Gurrola MD Primary Care Provider Active Melinda Beltre MD Attending Provider Active Team Status: Inactive Member Role Status Dates Michael Gurrola MD Attending Provider Active PHYSICIAN NO [...] Monahan DO Admit Provider, Attending Provider Active Data Entry Email Processor Relationship Specialty Start Date End Date Melida Huang APRN - [facility] [address] [place] [address] PCP - General Nurse Practitioner 07/14/23 Data Entry Email Processor Relationship Specialty Start Date End Date Melida Huang APRN - [facility] [address] [place] [address] PCP - General Nurse Practitioner 07/14/23 Data Entry Email Processor Relationship Specialty Start Date End Date Melida Huang APRN [facility] [address] [place] [address] PCP - General Nurse Practitioner 07/14/23 Team Status: Inactive Member Role Status Dates PHYSICIAN NO FAMILY Primary Care Provider Active Start: January 08, 2024 End: January 08, 2024 Nikhil Quiñones PA-C Emergency Provider Active Start: January 08, 2024 End: January 08, 2024 Data Entry Email Processor Relationship Specialty Start Date End Date Melida Huang APRN [facility] [address] [place] [address] PCP - General Nurse Practitioner 07/14/23 Data Entry Email Processor Relationship Specialty Start Date End Date Melida Huang APRN [facility] [address] [place] [address] PCP - General Nurse Practitioner 07/14/23 Data Entry Email Processor Relationship Specialty Start Date End Date Melida Huang APRN [facility] [address] [place] [address] PCP - General Nurse Practitioner 07/14/23 Data Entry Email Processor Relationship Specialty Start Date End Date Melida Huang APRN [facility] [address] [place] [address] PCP - General Nurse Practitioner 07/14/23 Data Entry Email Processor Relationship Specialty Start Date End Date Melida Huang APRN [facility] [address] [place] [address] PCP - General Nurse Practitioner 07/14/23 Data Entry Email Processor Relationship Specialty Start Date End Date Melida Huang APRN - [facility] [address] [place] [address] PCP - General Nurse Practitioner 07/14/23 Data Entry Email Processor Relationship Specialty Start Date End Date Melida Huang APRN [facility] [address] [facility] [place] [address] PCP - General Nurse Practitioner 07/14/23 Data Entry Email Processor Relationship Specialty Start Date End Date Unallocated, Juliet Ivan MD [address] [place], [place] [address] [address] PCP - General 12/01/22 Michael [facility]rola MD [address] [facility] [address] [place] [address] Obstetrics and Gynecology 03/08/23 Data Entry Email Processor Relationship Specialty Start Date End Date Unallocated, Juliet Ivan MD [address] [place] [address] PCP - General 12/01/22 Michael Gurrola MD [address] [facility] [address] [place] [address] Obstetrics and Gynecology 03/08/23 Team Status: Inactive Member Role Status Dates PHYSICIAN NO FAMILY Primary Care Provider Active Start: July 22, 2024 End: July 22, 2024 Fe Cruz APRN Attending Provider Active S tart: July 22, 2024 End: July 22, 2024 Data Entry Email Processor Relationship Specialty Start Date End Date Melida Huang APRN-[facility] [address], [place] [address] PCP - General Family Medicine 01/11/22 Data Entry Email Processor Relationship Specialty Start Date End Date Melida Huang [facility] [address], [facility] [place] [address] PCP - General Family Medicine 01/11/22 Data Entry Email Processor Relationship Specialty Start Date End Date Melida Huang [facility] [address], [place] [address] PCP - General Family Medicine 01/11/22 Data Entry Email Processor Relationship Specialty Start Date End Date Melida Huang [facility] [address], [facility] [place] [address] PCP - General Family Medicine 01/11/22 Data Entry Email Processor Relationship Specialty Start Date End Date Melida Huang [facility] [address], [facility] [place] [address] PCP - General Family Medicine 01/11/22 Data Entry Email Processor Relationship Specialty Start Date End Date No Pcp, [place] [address] PCP - General Family Medicine 02/07/24 Data Entry Email Processor Relationship Specialty Start Date End Date Unallocated, Juliet Ivan MD [address] [place] [address] PCP - General 12/01/22 Michael Gurrola MD [address] [address] Obstetrics and Gynecology 03/08/23 Data Entry Email Processor Relationship Specialty Start Date End Date Unallocated, Juliet Ivan MD [address] [place] [address] PCP - General 12/01/22 Michael Gurrola MD [address] [place] [address] Obstetrics and Gynecology 03/08/23 Data Entry Email Processor Relationship Specialty Start Date End Date Unallocated, Noms Provider, [place] [address] PCP - General 12/01/22 Michael Gurrola MD [address] [place] [address] Obstetrics and Gynecology 03/08/23 Team Status: Active [...] Active Start: November 15, 2024 Ameya Salguero DO Emergency Provider Active St art: November 15, 2024 Dashawn Moreno MD Admit Provider, Atte nding Provider, Other Provider Active Start: November 15, 2024 Team Status: Inactive Member Role Status Dates Vik Gunter MD Attending Provider Active St art: November 23, 2024 End: November 23, 2024 Goals (unrecognized section and content) Goals [...] 100 mL IVPB (COMPLETED) 2,000 mg, IntraVENous, PAPER TUBE GRADER TO O.R., 1 dose, On Mon11/20/23 at [...] (NoRateChange - Provider: Yancy Solorzano APRN - COMPLIANCE ADMINISTRATOR)1505 (Paused - Provider: Haylee Keen APRN - COMPLIANCE ADMINISTRATOR - Comment: Switch to gravity)1506 (New Bag - Provider: Haylee Keen APRN - COMPLIANCE ADMINISTRATOR)1530 (Anesthesia Volume Adjustment - Provider: Haylee Keen APRN - COMPLIANCE ADMINISTRATOR) PRN Medication Order 11/18/2023 11/19/2023 11/20/2023 0.9 [...] mL, IntraVENous, PRN, Starting on 11/20/23 at 1611, Until Discontinued, Line Care, After [...] not administer for more than 5 days. 2357 (Given - Provider: Meli Wills RN) morphine injection 4 mg (COMPLETED) 4 mg, IntraVENous, ONCE, 1 dose, On 02/03/24 at 2130, If oral and IV narcotics ordered, use oral first and only use IV if oral is ineffective or cannot take oral. Do Not give oral and IV within 1 hour of each other unless specifically ordered. 212 (Given - Provider: Meli Wills RN) ondansetron (ZOFRAN) injection 4 mg (COMPLETED) 4 mg, IntraVENous, ONCE, 1 dose, On 02/03/24 at 2130 2128 (Given - Provider: Meli Wills RN) PRN Medication Order 02/02/2024 02/03/2024 02/04/2024 iopamidol (ISOVUE-370) 76 % injection 75 mL (COMPLETED) 75 mL, IntraVENous, IMG ONCE PRN, 1 dose, Starting on 02/03/24 at 2130, Until 02/03/24 at 2141, Other 214 (Given - Provider: Radha Avilez) Scheduled Medication [...] (Given - Provid er: Abby De Souza, HENNA) ondansetron (ZOFRAN) injection 4 mg (COMPLETED) 4 [...] with provider prior to any invasive procedure. 08 (Given - Provider: Ayana Rodriguez RN) 0836 (Given - Provider: Juanis Contreras RN) 0735 (Given - Provider: Juanis Contreras RN) gabapentin (NEURONTIN) capsule 300 mg 300 mg, Oral, 3 TIMES DAILY, First dose (after last modification) on Mon04/14/24 at 0900, Until Discontinued 816 (Given - Provider: Ayana Rodriguez RN)1402 (Given [...] Madeleine Brewer RN)1950 (Stopped - Provider: Madeleine Berwer RN) sodium chloride flush 0.9 % injection 10 mL 10 mL, IntraVENous, EVERY 12 HOURS SCHEDULED (2 times per day), First dose on Mon04/11/24 at 0900, Until Discontinued 08 (Given - Provider: Ayana Rodriguez RN)1914 (Given - Provider: Madeleine Brewer RN) 0836 (Given - Provider: Juanis Contreras RN)2047 (Given - Provider: Ivy Schmid RN) 0740 (Given - Provider: Juanis Contreras RN)2100 (Due) venlafaxine (EFFEXOR XR) extended release capsule 75 mg 75 mg, Oral, DAILY WITH BREAKFAST, First dose on Mon04/14/24 at 0815, Until Discontinued, Do not crush or break. 0817 (Given - Provider: Ayana Rodriguez RN) 0835 (Given - Provider: Juanis Contreras RN) 0736 (Given - Provider: Juanis Contreras, RN) Continuous Medication Order 04/14/2024 04/15/2024 04/16/2024 dextrose 5 % and 0.45 % NaCl with KCl 20 mEq infusion (CANCELED) IntraVENous, at 100 mL/hr, CONTINUOUS, Starting on Mon04/12/24 at 0715, On hold since Mon04/15/2024 at 0621 until manually unheld 0107 (New Bag - Provider: Ivy Schmid, RN)1128 (New Bag - Provider: Ayana Rodriguez, RN)2139 (New Bag - Provider: Madeleine Brewer, RN) 0621 (Held by provider - Provider: Nicolette España MD - Reason: Other)0800 (Stopped - Provider: Juanis Contreras, RN)0904 (Unheld by provider - Provider: Brandee Rivera, KYLEE - ROAD ROLLER ENGINEER) PRN Medication Order 04/14/2024 04/15/2024 04/16/2024 0.9 [...] on Mon04/14/24 at 0610, Until Discontinued, Anxiety 0623 (Given - Provider: Ayana Rodriguez, RN) 0734 (Given - Provider: Juanis Contreras, HENNA) HYDROmorphone (DILAUDID) injection 0.25 mg (CANCELED)(Linked Group [...] 1638 (See Alternative - Provider: Ayana Rodriguez RN)2133 (See Alternative - Provider: Madeleine Brewer RN) 253 (See Alternative - Provider: Madeleine Brewer RN) 001 (Given - Provider: Ivy Schmid RN) HYDROmorphone [...] RN)2133 (Given - Provider: Madeleine Brewer RN) 253 (Given - Provider: Madeleine Brewer RN) 001 (See Alternative - Provider: Ivy Schmid RN) [...] Brewer RN)0734 (See Alternative - Provider: Juanis Contreras, RN) ondansetron (ZOFRAN-ODT) disintegrating tablet 4 mg(Linked Group 2) 4 mg, Oral, EVERY 8 HOURS PRN, Starting on Mariajose 04/11/24 at 0143, Until Discontinued, Nausea, Vomiting 0113 (See Alternative - Provider: Ivy Schmid RN)0817 (See Alternative - Provider: Ayana Rodriguez RN)1417 (See Alternative - Provider: Ayana Rodriguez RN) 0100 (See Alternative - Provider: Madeleine Brewer RN)0734 (Given - Provider: Juanis Contreras RN) [...] Ivy Schmid RN)0736 (Given - Provider: Juanis Contreras RN)1137 [...] content) DATE CREATED AUTHOR 07/28/2023 [facility] DATE CREATED AUTHOR AUTHOR'S ORGANIZ ATION 01/04/2024 [facility] DATE CREATED AUTHOR AUTHOR'S ORGANIZ ATION 01/20/2024 [facility] DATE CREATED AUTHOR AUTHOR'S ORGANIZ ATION 01/21/2024 [facility] DATE CREATED AUTHOR AUTHOR'S ORGANIZ ATION 02/14/2024 [facility] DATE CREATED AUTHOR AUTHOR'S ORGANIZ ATION 07/22/2024 Virgie Rowell [facility] DATE CREATED AUTHOR AUTHOR'S ORGANIZ ATION 09/18/2024 [facility] DATE CREATED AUTHOR AUTHOR'S ORGANIZ ATION 11/13/2024 [facility] EP[facility] DATE CREATED AUTHOR AUTHOR'S ORGANIZ ATION 12/06/2024 [facility] Ordered Prescriptions (unrec ognized [...] Prescription Sig Dispensed Refills Start Date End traMADol (ULTRAM) 50 MG tabletIndications:Postop erative pain [...] Prescription Sig Dispensed Refills Start Date End oxyCODONE-acetaminophen (PERCOCET) 5-325 MG per tabletIndications:Right ovarian [...] Prescription Sig Dispensed Refills Start Date End docusate sodium (COLACE, DULCOLAX) 100 MG CAPS [...] BE BASED ON THE PRIMARY CLINICAL RECORDS. [facility]. provides no warranty or guarantee of the accuracy or completeness of information in this document.
--- NOTE | 2024-12-21 17:25 | CT_ITS ---
The [address] [address] Patient Name: TYRONE CLAROS MRN: [id number] date: 1995 Sex: F Assigned Patient Location: ER Current Patient Location: ER Accession/Order Number: [id number] Exam Date: 12/21/2024 18:06 Report Date: 12/21/2024 18:13 At the request of: MASON PEREZ MD Procedure: CT abdomen pelvis w con CT Abdomen and Pelvis withcontrast TECHNIQUE: Axial imaging with 2-D reconstruction.100 cc of Omni 300. The CT exam was performed using one or more the following dose reduction techniques: Automated exposure control, adjustment of the MA and/or Kv according to patient size, or use of the iterative reconstruction technique. COMPARISON: 11/23/2024 History: Right flank pain LIMITATIONS: None LOWER THORAX Unremarkable LIVER: Hepatic steatosis GALLBLADDER: No gallbladder abnormality identified. BILE DUCTS: No dilatation SPLEEN: Unremarkable PANCREAS: Unremarkable ADRENAL GLANDS: Unremarkable KIDNEYS:Unremarkable AORTA: No abdominal aortic aneurysm identified. RETROPERITONEUM: No significant retroperitoneal abnormalities identified. MESENTERY:Unremarkable STOMACH:Unremarkable SMALL BOWEL: The small bowel loops are nondistended. APPENDIX: Appendectomy changes identified. COLON: Moderate constipation URINARY BLADDER: Urinary bladder is unremarkable. REPRODUCTIVE SYSTEM: The uterus is absent. 4.6 cm right ovarian cyst smaller from prior. PNEUMOPERITONEUM: None PERITONEAL FLUID:None BONY STRUCTURES: Unremarkable ABDOMINAL WALL: Small fat-containing umbilical hernia. CT/CT abdomen pelvis w con IMPRESSION: Previously identified right ovarian cyst now smaller measuring 4.6 cm. Consider short-term follow-up assessment with transabdominal transvaginal pelvic ultrasound to ensure resolution. Impression dictated by: Julio Sunshine M.D. 12/21/2024 6:13 PM Dictation Location: [facility] [employer] Electronically authenticated by: [id number] Y Date: 12/21/2024 18:13
--- NOTE | 2024-12-21 17:26 | ED.GENADUL1 ---
HPI HPI - General Adult General Chief complaint: Abdominal Pain Stated complaint: ABDOMINAL PAIN Time Seen by Provider: 12/21/24 17:06 Source: patient Mode of arrival: walk-in Limitations: no limitations History of Present Illness HPI narrative: 29-year-old female presents for abdominal pain. It is in the right lower part of her abdomen. It is continuous and she has not had diarrhea constipation or vomiting. No injury or dysuria or flank pain or back pain. She had hysterectomy earlier this year and appendectomy last year. The pain is moderate to severe and continuous since she has had it for the last day or 2. Related Data Home Medications �Medication �Instructions �Recorded �Confirmed venlafaxine 75 mg capsule,extended 325 mg PO DAILY 08/28/24 12/21/24 release 24 hr buspirone 10 mg tablet 15 mg PO BID 11/23/24 12/21/24 ondansetron 4 mg disintegrating 4 mg PO Q6H PRN nausea and vomiting 11/23/24 12/21/24 tablet trazodone 100 mg tablet 150 mg PO QPM 11/23/24 12/21/24 cariprazine 3 mg capsule (Vraylar) 3 mg PO Q24H 12/21/24 12/21/24 hydroxyzine HCl 50 mg tablet 75 mg PO TID PRN anxiety 12/21/24 12/21/24 oxcarbazepine 300 mg tablet 300 mg PO BEDTIME 12/21/24 12/21/24 Previous Rx's �Medication �Instructions �Recorded etodolac 400 mg tablet 400 mg PO Q8H PRN pain #20 tabs 12/21/24 Allergies Allergy/AdvReac Type Severity Reaction Status Date / Time chlorpheniramine (From Allergy Severe Swelling Verified 11/01/24 14:06 Triaminic Cold and Cough) of Lip/Tongue/Throat dextromethorphan (From Allergy Severe Swelling Verified 11/01/24 14:06 Triaminic Cold and Cough) of Lip/Tongue/Throat pseudoephedrine (From Allergy Severe Swelling Verified 11/01/24 14:06 Triaminic Cold and Cough) of Lip/Tongue/Throat Opioid HPI Opioid Management Most Recent Opioid Data: Last Pain Scale 10 Today, 17:07 Review of Systems ROS Narrative A ten point review of systems is negative except as noted above. PFSH PFSH Surgical History History of appendectomy �Z90.49 - Acquired absence of other specified parts of digestive tract (ICD-10) History of removal of ovarian cyst �Z98.890 - Other specified postprocedural states (ICD-10) �Z87.42 - Personal history of other diseases of the female genital tract (ICD-10) History of hysterectomy �Z90.710 - Acquired absence of both cervix and uterus (ICD-10) Social History Little interest or pleasure in doing things: not at all Feeling down, depressed, or hopeless: not at all Exam Narrative Exam Narrative: Nurses note and vital signs reviewed and patient is not hypoxic. General: The patient appears well and in no apparent distress. Skin: Warm, dry, no pallor noted. There is no rash noted. Head: Normocephalic, atraumatic Eye: Normal conjunctiva, no drainage Ears, Nose, Mouth, and Throat: oral mucosa is moist. Nares patent. Cardiovascular: Regular Rate and Rhythm Respiratory: Patient is in no distress, no accessory muscle use, lungs are clear to auscultation, no wheezing, rales or rhonchi Back: non-tender, no CVA tenderness bilaterally to percussion. GI: Soft and nondistended. No masses. Tenderness present in the right lower abdomen. Musculoskeletal: The patient has no evidence of calf tenderness, no pitting edema, symmetrical pulses noted bilaterally Neurological: A&O, normal speech Psychiatric: Cooperative Constitutional Vital Signs, click to edit/add: Last Vital Signs Temp 99.2 F 12/21/24 17:07 Pulse 98 H 12/21/24 17:07 Resp 18 12/21/24 17:07 BP 110/61 12/21/24 17:07 Pulse Ox 98 12/21/24 17:07 O2 Del Method Room Air 12/21/24 17:07 Course Vital Signs Vital signs: Vital Signs Temperature 99.2 F 12/21/24 17:07 Pulse Rate 98 H 12/21/24 17:07 Respiratory Rate 18 12/21/24 17:07 Blood Pressure 110/61 12/21/24 17:07 Pulse Oximetry 98 12/21/24 17:07 Oxygen Delivery Method Room Air 12/21/24 17:07 Temperature 99.2 F 12/21/24 17:07 Pulse Rate 98 H 12/21/24 17:07 Respiratory Rate 18 12/21/24 17:07 Blood Pressure 110/61 12/21/24 17:07 Pulse Oximetry 98 12/21/24 17:07 Oxygen Delivery Method Room Air 12/21/24 17:07 Medical Decision Making MDM Narrative Medical decision making narrative: CT scan shows right ovarian cyst, known previously. All other findings are negative and she will be discharged home with pain medication and follow-up instructions with her lining stitcher. Treatment diagnosis and follow-up were discussed with the patient. Differential Diagnosis Differential Diagnosis: Ovarian cyst, UTI, nonspecific abdominal pain Lab Data Lab results reviewed: Yes I reviewed the patient's lab results Labs: Lab Results 12/21/24 Range/Units 17:35 WBC 5.4 (4.0-11.0) 10^3/uL RBC 3.60 L (4.20-5.40) 10^6/uL Hgb 10.6 L (12.0-16.0) g/dL Hct 32.3 L (36.0-48.0) % MCV 89.7 (81.0-99.0) fL MCH 29.4 (26.7-34.0) pg MCHC 32.8 (29.9-35.2) g/dL RDW 12.9 (11.0-15.0) % Plt Count 184 (150-450) 10^3/uL MPV 9.4 L (9.5-13.5) fL Neut % (Auto) 53.4 (43.0-75.0) % Lymph % (Auto) 34.9 (20.5-60.0) % [place] % (Auto) 11.3 (1.7-12.0) % Eos % (Auto) 0.0 L (0.9-7.0) % Baso % (Auto) 0.2 (0.2-2.0) % Neut # (Auto) 2.9 (1.4-6.5) 10^3/uL Lymph # (Auto) 1.9 (1.2-3.8) 10^3/uL [place] # (Auto) 0.6 (0.3-0.8) 10^3/uL Eos # (Auto) 0.0 (0.0-0.7) 10^3/uL Baso # (Auto) 0.0 (0.0-0.1) 10^3/uL Abs Immat Gran (auto) 0.01 (0.00-0.03) 10^3/uL Imm/Tot Granulo (auto) 0.2 (0.0-0.5) % Sodium 142 (136-145) mmol/L Potassium 4.3 (3.5-5.1) mmol/L Chloride 105 (98-107) mmol/L Carbon Dioxide 26.7 (21.0-32.0) mmol/L Anion Gap 14.6 BUN 28.0 H (7.0-18.0) mg/dL Creatinine 0.63 (0.55-1.02) mg/dL Est GFR ( Amer) >60 (>=60 mL/min/1.73m^2) Est GFR (Non-Af Amer) >60 (>=60 mL/min/1.73m^2) BUN/Creatinine Ratio 44.4 Glucose 75 (74-106) mg/dL Calcium 8.4 L (8.5-10.1) mg/dL Urine Color Lt. yellow (YELLOW) Urine Clarity Clear (CLEAR) Urine pH 7.0 (5.0-9.0) Ur Specific [place] 1.020 (1.005-1.025) Urine Protein Negative (NEG/TRACE) mg/dL Urine Glucose (UA) Negative (NEGATIVE) mg/dL Urine Ketones Negative (NEGATIVE) mg/dL Urine Occult Blood Negative (NEGATIVE) Urine Nitrite Negative (NEGATIVE) Urine Bilirubin Negative (NEGATIVE) Urine Urobilinogen 0.2 (0.2-1.0) EU/dL Ur Leukocyte Esterase Negative (NEGATIVE) Urine RBC 0-2 (0-2) #/HPF Urine WBC 0-2 A (NONE SEEN) #/HPF Ur Squamous Epith Cells Few A (NONE/RARE) #/LPF Urine Crystals Seen A (None Seen) #/HPF Amorphous Sediment Few Urine Bacteria Trace A (NONE SEEN) #/HPF Urine Casts None seen (NONE SEEN) #/LPF Urine Mucus Trace A (NONE SEEN) Imaging Data CT scan - abdomen: Radiologist's impression: ITS Impressions Abdomen/Pelvis CT 12/21/24 17:25 IMPRESSION: Previously identified right ovarian cyst now smaller measuring 4.6 cm. Consider short-term follow-up assessment with transabdominal transvaginal pelvic ultrasound to ensure resolution. Impression dictated by: Julio Sunshine M.D. 12/21/2024 6:13 PM Dictation Location: [place] [address] Electronically authenticated by: [id number] Y Date: 12/21/2024 18:13 Discharge Plan Discharge Chief Complaint: Abdominal Pain Clinical Impression: Cyst of right ovary Patient Disposition: Home, Self-Care Time of Disposition Decision: 18:36 Condition: Good Mode of Transportation: Private Vehicle Prescriptions / Home Meds: New etodolac 400 mg tablet 400 mg PO Q8H PRN (Reason: pain) Qty: 20 0RF No Action buspirone 10 mg tablet 15 mg PO BID ondansetron 4 mg tablet,disintegrating 4 mg PO Q6H PRN (Reason: nausea and vomiting) trazodone 100 mg tablet 150 mg PO QPM venlafaxine 75 mg capsule,extended release 24hr 325 mg PO DAILY Vraylar 3 mg capsule 3 mg PO Q24H oxcarbazepine 300 mg tablet 300 mg PO BEDTIME hydroxyzine HCl 50 mg tablet 75 mg PO TID PRN (Reason: anxiety) Print Language: Tajik Instructions: Ovarian Cyst (ED) Additional Instructions: Follow-up with your lining stitcher Referrals: Physician,Non-Staff, MD [Primary Care Provider] - 1 week
[2024-12-21 17:47] LABS: Hematocrit 32.3 % (36.0-48.0); Hemoglobin 10.6 g/dL (12.0-16.0); Immature Granulocytes Abs Auto 0.01 10^3/uL (0.00-0.03); Immature Granulocytes Pct Auto 0.2 % (0.0-0.5); Lymphocytes Absolute Auto 1.9 10^3/uL (1.2-3.8); Mean Corpuscular HGB Conc 32.8 g/dL (29.9-35.2); Mean Corpuscular Hemoglobin 29.4 pg (26.7-34.0); Mean Corpuscular Volume 89.7 fL (81.0-99.0); Platelet Count 184 10^3/uL (150-450); Red Blood Count 3.60 10^6/uL (4.20-5.40); White Blood Count 5.4 10^3/uL (4.0-11.0)
[2024-12-21 17:50] LABS: Glucose Urine UA NEGATIVE (NEGATIVE)
[2024-12-21 17:57] LABS: Anion Gap 14.6; Blood Urea Nitrogen 28.0 mg/dL (7.0-18.0); Calcium 8.4 mg/dL (8.5-10.1); Carbon Dioxide 26.7 mmol/L (21.0-32.0); Chloride 105 mmol/L (98-107); Estimated GFR (African America >60 (>=60 mL/min/1.73m^2); Estimated GFR (Non-African Ame >60 (>=60 mL/min/1.73m^2); Glucose 75 mg/dL (74-106); Potassium 4.3 mmol/L (3.5-5.1); Sodium 142 mmol/L (136-145)
[2024-12-21 18:00] LABS: Cast Seen? NONE SEEN #/LPF (NONE SEEN); Crystals Seen? Seen #/HPF (None Seen)
[2024-12-21 18:49] VITALS: BP 91/62; PULSE 82; O2SAT 98
[2024-12-21] MEDS: KETOROLAC TROMETHAMINE 30 MG/ML VIAL IVP (19:05)
== END 2024-12-21 19:07 | disposition home or self-care (01) ==
PROVIDERS: Emergency Provider Emergency Medicine
DX: N83.201 Unspecified ovarian cyst, right side (principal); Z90.710 Acquired absence of both cervix and uterus; Z90.49 Acquired absence of other specified parts of digestive tract
CPT/HCPCS: 36415; 74177; 80048; 81001; 85025; 96374; 96375; 99285; J1885; J2405; Q9967

== ENCOUNTER 2025-01-27 12:27 | Emergency (ER) | payer OTHER, SELFPAY ==
[2025-01-27 12:28] VITALS: BP 108/69; PULSE 104; TEMP 37.3; O2SAT 95; BMI 31.5
--- NOTE | 2025-01-27 12:38 | ECG_ITS ---
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 Measurements Intervals Burney Rate: 108 P: 43 WA: 144 QRS: 41 QRSD: 96 T: 43 QT: 346 QTc: 409 Interpretive Statements 1120 Sinus tachycardia 2420 RSR (QR) in lead V1/V2, consistent with right ventricular conduction delay 4068 Nonspecific Twave abnormality Abnormal ECG No previous ECG available for comparison Electronically Signed On 01-28-2025 13:53:59 EDT by FLAKITO THOMSON M.D.
--- NOTE | 2025-01-27 12:41 | ED.GENADUL1 ---
HPI HPI - General Adult General Chief complaint: Psychiatric Symptoms Stated complaint: SUCIDIAL THOUGHTS Time Seen by Provider: 01/27/25 12:34 Source: patient Mode of arrival: ambulance History of Present Illness HPI narrative: 29-year-old female presents to the emergency department for thoughts of harming herself. She states she woke up this way with these racing thoughts. She has a history of anxiety and depression and feels anxious now. She has not done anything to harm herself but had thoughts of cutting herself. She states she smokes marijuana, no other drug or alcohol use. Related Data Home Medications ?Medication ?Instructions ?Recorded ?Confirmed venlafaxine 75 mg capsule,extended 325 mg PO DAILY 08/28/24 01/27/25 release 24 hr buspirone 10 mg tablet 15 mg PO BID 11/23/24 01/27/25 trazodone 100 mg tablet 150 mg PO QPM 11/23/24 01/27/25 cariprazine 3 mg capsule (Vraylar) 4.5 mg PO Q24H 12/21/24 01/27/25 hydroxyzine HCl 50 mg tablet 75 mg PO TID PRN anxiety 12/21/24 01/27/25 oxcarbazepine 300 mg tablet 450 mg PO BEDTIME 12/21/24 01/27/25 Allergies Allergy/AdvReac Type Severity Reaction Status Date / Time chlorpheniramine (From Allergy Severe Swelling Verified 11/01/24 14:06 Triaminic Cold and Cough) of Lip/Tongue/Throat dextromethorphan (From Allergy Severe Swelling Verified 11/01/24 14:06 Triaminic Cold and Cough) of Lip/Tongue/Throat pseudoephedrine (From Allergy Severe Swelling Verified 11/01/24 14:06 Triaminic Cold and Cough) of Lip/Tongue/Throat Opioid HPI Opioid Management Most Recent Opioid Data: Last Pain Scale 10 12/21/24, 17:07 Ur Phencyclidine Scrn, (NEGATIVE) Negative Today, 12:40 Review of Systems ROS Narrative A ten point review of systems is negative except as noted above. PFSH PFSH Surgical History History of appendectomy ?Z90.49 - Acquired absence of other specified parts of digestive tract (ICD-10) History of removal of ovarian cyst ?Z98.890 - Other specified postprocedural states (ICD-10) ?Z87.42 - Personal history of other diseases of the female genital tract (ICD-10) History of hysterectomy ?Z90.710 - Acquired absence of both cervix and uterus (ICD-10) Social History Little interest or pleasure in doing things: not at all Feeling down, depressed, or hopeless: not at all Exam Narrative Exam Narrative: Nurses note and vital signs reviewed and patient is not hypoxic. General: The patient appears well and in no apparent distress. Patient is resting comfortably on cart. Skin: Warm, dry, no pallor noted. There is no rash noted. Head: Normocephalic, atraumatic Eye: Normal conjunctiva, no drainage Ears, Nose, Mouth, and Throat: oral mucosa is moist. Nares patent. Cardiovascular: Regular Rate and Rhythm Respiratory: Patient is in no distress, no accessory muscle use, lungs are clear to auscultation, no wheezing, rales or rhonchi Back: non-tender GI: Soft and nontender Musculoskeletal: The patient has no evidence of calf tenderness, no pitting edema, symmetrical pulses noted bilaterally Neurological: A&O, normal speech Psychiatric: Cooperative Constitutional Vital Signs, click to edit/add: Last Vital Signs Temp 99.1 F 01/27/25 12:28 Pulse 104 H 01/27/25 12:28 Resp 16 01/27/25 12:28 BP 108/69 01/27/25 12:28 Pulse Ox 95 01/27/25 12:28 O2 Del Method Room Air 01/27/25 12:28 Course Vital Signs Vital signs: Vital Signs Temperature 99.1 F 01/27/25 12:28 Pulse Rate 104 H 01/27/25 12:28 Respiratory Rate 16 01/27/25 12:28 Blood Pressure 108/69 01/27/25 12:28 Pulse Oximetry 95 01/27/25 12:28 Oxygen Delivery Method Room Air 01/27/25 12:28 Temperature 99.1 F 01/27/25 12:28 Pulse Rate 104 H 01/27/25 12:28 Respiratory Rate 16 01/27/25 12:28 Blood Pressure 108/69 01/27/25 12:28 Pulse Oximetry 95 01/27/25 12:28 Oxygen Delivery Method Room Air 01/27/25 12:28 Medical Decision Making MDM Narrative Medical decision making narrative: The patient is cleared medically. She has been interviewed by mental health services and they have done a safety plan and the patient is being discharged home. Differential Diagnosis Differential Diagnosis: Suicidal ideation, self-harm ideation, depression Lab Data Lab results reviewed: Yes I reviewed the patient's lab results Labs: Lab Results 01/27/25 01/27/25 Range/Units 12:40 12:48 WBC 5.1 (4.0-11.0) 10^3/uL RBC 4.14 L (4.20-5.40) 10^6/uL Hgb 12.2 (12.0-16.0) g/dL Hct 36.9 (36.0-48.0) % MCV 89.1 (81.0-99.0) fL MCH 29.5 (26.7-34.0) pg MCHC 33.1 (29.9-35.2) g/dL RDW 12.3 (11.0-15.0) % Plt Count 230 (150-450) 10^3/uL MPV 9.0 L (9.5-13.5) fL Neut % (Auto) 59.0 (43.0-75.0) % Lymph % (Auto) 31.6 (20.5-60.0) % [place] % (Auto) 8.6 (1.7-12.0) % Eos % (Auto) 0.0 L (0.9-7.0) % Baso % (Auto) 0.4 (0.2-2.0) % Neut # (Auto) 3.0 (1.4-6.5) 10^3/uL Lymph # (Auto) 1.6 (1.2-3.8) 10^3/uL [place] # (Auto) 0.4 (0.3-0.8) 10^3/uL Eos # (Auto) 0.0 (0.0-0.7) 10^3/uL Baso # (Auto) 0.0 (0.0-0.1) 10^3/uL Abs Immat Gran (auto) 0.02 (0.00-0.03) 10^3/uL Imm/Tot Granulo (auto) 0.4 (0.0-0.5) % Sodium 136 (136-145) mmol/L Potassium 3.9 (3.5-5.1) mmol/L Chloride 101 (98-107) mmol/L Carbon Dioxide 31.4 (21.0-32.0) mmol/L Anion Gap 7.5 BUN 12.0 (7.0-18.0) mg/dL Creatinine 0.66 (0.55-1.02) mg/dL Est GFR ( Amer) >60 (>=60 mL/min/1.73m^2) Est GFR (Non-Af Amer) >60 (>=60 mL/min/1.73m^2) BUN/Creatinine Ratio 18.2 Glucose 73 L (74-106) mg/dL Calcium 9.1 (8.5-10.1) mg/dL Urine Color Yellow (YELLOW) Urine Clarity Clear (CLEAR) Urine pH 6.5 (5.0-9.0) Ur Specific [place] 1.025 (1.005-1.025) Urine Protein Trace (NEG/TRACE) mg/dL Urine Glucose (UA) Negative (NEGATIVE) mg/dL Urine Ketones Negative (NEGATIVE) mg/dL Urine Occult Blood Negative (NEGATIVE) Urine Nitrite Negative (NEGATIVE) Urine Bilirubin Negative (NEGATIVE) Urine Urobilinogen 0.2 (0.2-1.0) EU/dL Ur Leukocyte Esterase Negative (NEGATIVE) Urine RBC 0-2 (0-2) #/HPF Urine WBC 0-2 A (NONE SEEN) #/HPF Ur Squamous Epith Cells Moderate A (NONE/RARE) #/LPF Urine Crystals None seen (None Seen) #/HPF Urine Bacteria Trace A (NONE SEEN) #/HPF Urine Casts Seen A (NONE SEEN) #/LPF Hyaline Casts Few Urine Mucus Moderate A (NONE SEEN) Ur Culture Indicated? No Salicylates 3.8 (<=19.9) mg/dL Urine Opiates Screen Negative (NEGATIVE) Ur Buprenorphine Scrn Negative (NEGATIVE) Ur Oxycodone Screen Negative (NEGATIVE) Urine Methadone Screen Negative (NEGATIVE) Acetaminophen <2.0 L (10.0-30.0) ug/mL Ur Barbiturates Screen Negative (NEGATIVE) U Tricyclic Antidepress Negative (NEGATIVE) Ur Phencyclidine Scrn Negative (NEGATIVE) Ur Amphetamines Screen Negative (NEGATIVE) U Methamphetamines Scrn Negative (NEGATIVE) U Benzodiazepines Scrn Negative (NEGATIVE) Urine Cocaine Screen Negative (NEGATIVE) U Cannabinoids Screen Positive A (NEGATIVE) Ethanol Quant <3 mg/dL ECG Data Attestation: I personally reviewed and interpreted this ECG as follows: (EKG on my interpretation shows normal sinus rhythm with a rate of 108 and no acute change.) Discharge Plan Discharge Chief Complaint: Psychiatric Symptoms Clinical Impression: Depression Patient Disposition: Home, Self-Care Time of Disposition Decision: 16:00 Condition: Good Mode of Transportation: Private Vehicle Prescriptions / Home Meds: No Action buspirone 10 mg tablet 15 mg PO BID trazodone 100 mg tablet 150 mg PO QPM venlafaxine 75 mg capsule,extended release 24hr 325 mg PO DAILY Vraylar 3 mg capsule 4.5 mg PO Q24H oxcarbazepine 300 mg tablet 450 mg PO BEDTIME hydroxyzine HCl 50 mg tablet 75 mg PO TID PRN (Reason: anxiety) Print Language: Maori Instructions: Depression (ED) Referrals: Physician,Non-Staff, MD [Primary Care Provider] - 1 week
[2025-01-27 12:53] LABS: Hematocrit 36.9 % (36.0-48.0); Hemoglobin 12.2 g/dL (12.0-16.0); Immature Granulocytes Abs Auto 0.02 10^3/uL (0.00-0.03); Immature Granulocytes Pct Auto 0.4 % (0.0-0.5); Lymphocytes Absolute Auto 1.6 10^3/uL (1.2-3.8); Mean Corpuscular HGB Conc 33.1 g/dL (29.9-35.2); Mean Corpuscular Hemoglobin 29.5 pg (26.7-34.0); Mean Corpuscular Volume 89.1 fL (81.0-99.0); Platelet Count 230 10^3/uL (150-450); Red Blood Count 4.14 10^6/uL (4.20-5.40); White Blood Count 5.1 10^3/uL (4.0-11.0)
[2025-01-27 12:55] LABS: Glucose Urine UA NEGATIVE (NEGATIVE)
[2025-01-27] MEDS: LORAZEPAM 1 MG TABLET PO (13:04)
[2025-01-27 13:06] LABS: Anion Gap 7.5; Blood Urea Nitrogen 12.0 mg/dL (7.0-18.0); Calcium 9.1 mg/dL (8.5-10.1); Carbon Dioxide 31.4 mmol/L (21.0-32.0); Chloride 101 mmol/L (98-107); Estimated GFR (African America >60 (>=60 mL/min/1.73m^2); Estimated GFR (Non-African Ame >60 (>=60 mL/min/1.73m^2); Glucose 73 mg/dL (74-106); Potassium 3.9 mmol/L (3.5-5.1); Salicylate 3.8 mg/dL (<=19.9); Sodium 136 mmol/L (136-145)
[2025-01-27 13:07] LABS: Cannabinoid Screen Urine POSITIVE (NEGATIVE); Methamphetamines Screen Urine NEGATIVE (NEGATIVE); Tricyclic Antidepressant Urine NEGATIVE (NEGATIVE)
[2025-01-27 13:09] LABS: Cast Seen? SEEN #/LPF (NONE SEEN); Crystals Seen? None Seen #/HPF (None Seen)
[2025-01-27 13:10] LABS: Urine Culture Indicated NO
[2025-01-27 13:11] LABS: Acetaminophen <2.0 ug/mL (10.0-30.0)
== END 2025-01-27 16:07 | disposition home or self-care (01) ==
PROVIDERS: Emergency Provider Emergency Medicine
DX: F32.A Depression, unspecified (principal); R45.88 Nonsuicidal self-harm; F41.9 Anxiety disorder, unspecified
CPT/HCPCS: 36415; 80048; 80179; 80307; 80320; 80329; 81001; 85025; 93005; 99285

== ENCOUNTER 2025-03-19 14:02 | Emergency (ER) | payer OTHER, SELFPAY ==
--- OUTSIDE RECORDS SUMMARY | 2025-03-19 14:08 | XMS_ITS | Clinical Summary ---
Author Organization [facility] Address [address] [place] [address] Care Team Providers Care Burial Vault Deliverer And Installer Name Role Phone Unallocated, Noms Provider Primary Care Provi lala Ar Bains MD Unavailable [phone] Allergies Active Allergy Reactions Criticality Noted Date Comments Chlorpheniramine Anaphylaxis,Other High 04/10/2023 Dextromethorphan Other 01/08/2024 Dm-Apap-Cpm Angioedema,Swelling 11/18/2016 Throat Swells Pseudoephedrine Other 01/08/2024 Medications venlafaxine XR (Effexor XR) 75 MG 24 hr capsule Take 75 mg by mouth in the morning. Take with meals. Active hydrOXYzine HCl (Atarax) 50 MG tablet TAKE 1 TABLET BY MOUTH THREE TIMES DAILY NEEDED FOR ITCHING 11/01/2024 Active Family History Medical History Relation Name Comments Diverticulitis Father Irritable bowel syndrome Father Diabetes Maternal Grandfather Hypertension Maternal Grandfather Lung cancer Maternal Grandfather Skin cancer Maternal Grandfather Hypertension Maternal Grandmother Kidney cancer Maternal Grandmother Ovarian cancer Maternal Grandmother Diabetes Mother Hypertension Mother No Known Problems Paternal Grandfather No Known Problems Paternal Grandmother Relation Name Status Comments Father Alive Maternal Grandfather Alive Maternal Grandmother Alive Mother Alive Paternal Grandfather Paternal Grandmother Social History Tobacco Use Types Packs/Day Years Used Date Smoking Tobacco: Some Days Cigarettes Smokeless Tobacco: Never Tobacco Cessation:Ready to Q uit: Not Asked; Counseling Given: Not Answered Alcohol Use Standard Drinks/Week Comments Never 0 (1 standard drink = 0.6 oz pur e alcohol) Education Answer Date Recorded What is the highest level of school you have completed or the highest degree you have received? High school graduate 05/03/2023 Comments No Sex and Gender Information Value Date Recorded Sex Assigned at Not on file Legal Sex Female 6:43 PM EDT Gender Identity Not on file Sexual Orientation Not on file Last Filed Vital Signs Vital Sign Reading Time Taken Comments Blood Pressure 110/64 11/06/2024 3:52 PM EDT Pulse - - Temperature - - Respiratory Rate - - Oxygen Saturation - - Inhaled Oxygen Concentration - - Weight 65.8 kg (145 lb) 11/06/2024 3:52 PM EDT Height 166.4 cm (5' 5.5 ) 02/28/2022 12:00 PM ED T Body Mass Index 23.76 02/28/2022 12:00 PM EDT Plan of Treatment Health Maintenance Due Date Last Done Comments Influenza Vaccine (#1) 2025 04/24/2014 Insurance [employer] Care Teams Burial Vault Deliverer And Installer Relationship Specialty Start Date End Date Unallocated, Noms Provider, [address] [facility] [address] PCP - General 12/01/22 Ar Bains MD [address] [place] [address] Obstetrics and Gynecology 03/08/23
--- OUTSIDE RECORDS SUMMARY | 2025-03-19 14:08 | XMS_ITS | Encounter Summary ---
Author Organization [facility] Address [address] [place] [address] Care Team Providers Care Furniture Detailer Name Role Phone Unallocated, Noms Provider Primary Care Provi lala Ar Bains MD Unavailable [phone] Encounter Details Date Type Department Care Team (Late st Contact Info) Description 01/05/2023 Orders Only MARIE NOGUERAGYAlan [address] [facility] [address] [place] [address] Ar Bains MD [address] [facility] [address] [place] [address] Social History Tobacco Use Types Packs/Day Years Used Date Smoking Tobacco: Every Day Cigarettes Alcohol Use Standard Drinks/Week Comments Never 0 (1 standard drink = 0.6 oz pur e alcohol) Comments Yes Sex and Gender Information Value Date Recorded Sex Assigned at Not on file Legal Sex Female 6:43 PM EDT Gender Identity Not on file Sexual Orientation Not on file documented as of this encounter Plan of Treatment Not on file documented as of this encounter Procedures Procedure Name Priority Date/Time Associated Diagnosis Comments GLUCOSE Routine 01/05/2023 1:03 PM EDT documented in this encounter Results * Glucose, random (01/05/2023 1:03 PM EDT) Blood Venous blood specimen / Unknown us Ar Bains MD LAB BLOOD ORDERABLES Final Res ult documented in this encounter Visit Diagnoses Not on filedocumented in this encounter Care Teams Furniture Detailer Relationship Specialty Start Date End Date Unallocated, Noms Provider, [address] [place] [address] PCP - General 12/01/22 Ar Bains MD [address] [place] [address] Obstetrics and Gynecology 03/08/23 documented as of this encounter
--- OUTSIDE RECORDS SUMMARY | 2025-03-19 14:08 | XMS_ITS | Encounter Summary ---
Author Organization [facility] Address [address] [place] [address] Care Team Providers Care Small Engine Mechanic Name Role Phone Unallocated, Noms Provider Primary Care Provi lala Ar Bains MD Unavailable [phone] Encounter Details Date Type Department Care Team (Late st Contact Info) Description 05/08/2023 Abstract MARIE VILLALOBOS [address] [facility] [address] [place] [address] Ar Bains MD [address] [facility] [address] [place] [address] Social History Tobacco Use Types Packs/Day Years Used Date Smoking Tobacco: Some Days Cigarettes Smokeless Tobacco: Never Alcohol Use Standard Drinks/Week Comments Never 0 [...] on file documented as of this encounter Visit Diagnoses Not on filedocumented in this encounter Care Teams Small Engine Mechanic Relationship Specialty Start Date End Date Unallocated, Noms ProviderMD [address] [place] [address] PCP - General 12/01/22 Ar Bains MD [address] [facility] [address] [place] [address] Obstetrics and Gynecology 03/08/23 documented as of this encounter
--- OUTSIDE RECORDS SUMMARY | 2025-03-19 14:08 | XMS_ITS | Encounter Summary ---
Author Organization [facility] tem Address [id number] [address] [place] [address] Care Team Providers Care Butter Melter Name Role Phone No Pcp, No Pcp Primary Care Provider Unavailabl e Reason for Referral * Diagnostic Imaging (Routine) - Closed Specialty Diagnoses / Procedures Referred By Siomara dumas Referred To Contact Maternal and Medicine Diagnoses Obesity affecting in second trimester Tobacco smoking affecting in second trimester History of marijuana use History of migraine during Hx of shoulder dystocia in prior , currently Procedures US MFM with or without consult Chris Cobian MD [address] [place] [address] 12/18/2023 [place] [address] Phone: tel: fax: Maternal- Medicine at [address] [address] Phone: tel: fax: Referral ID Status Reason Start Date Expiration Date Visits Re quested Visits Authorized [id number] Closed 09/16/2020 09/16/2021 1 1 Encounter Details Date Type Department Care Team (Late st Contact Info) Description 09/16/2020 Orders Only Maternal- Medicine at [address] [phone] Chris Cobian MD [address] [facility] Dept [place] gas [place] [address] Obesity affecting in second trimester (Primary Dx); Tobacco smoking affecting in second trimester; History of marijuana use; History of migraine during ; Hx of shoulder dystocia in prior , currently Social History Tobacco Use Types Packs/Day Years Used Date Smoking Tobacco: Former Cigarettes Smokeless Tobacco: Never Comments:Down to 2-3 cig/day with Alcohol Use Standard Drinks/Week Comments Never 0 (1 standard drink = 0.6 oz pur e alcohol) AUDIT-C Answer Date Recorded Q1: How often do you have a drink containing alc ohol? Never 04/28/2020 Average Number of Drinks Not on file 020 Frequency of Binge Drinking Not on file 04/19 Childcare Answer Date Recorded Childcare Unknown 04/28/2020 Employment Answer Date Recorded Employment Unknown 04/28/2020 Purpose - Life Answer Date Recorded Purpose and direction in life Unknown Comments Yes Sex and Gender Information Value Date Recorded Sex Assigned at Not on file Legal Sex Female 12:16 PM EDT Gender Identity Not on file Sexual Orientation Not on file COVID-19 Exposure Response Date Recorded In the last month, have you been in contact with someone who was confirmed or suspected to have Coronavirus / COVID-19? No / Unsure 09/18/2020 8:54 AM EDT documented as of this encounter Plan of Treatment Not on file documented as of this encounter Results * US [facility] OB FOLLOW-UP, 1 FETUS (09/24/2020 11:06 AM EDT) Anatomical Region Laterality Modality Pelvis Ultrasound 09/24/2020 10:4 9 AM EDT Impressions 09/24/2020 12:58 PM EDT IMPRESSION: 1. Single intrauterine with expected interval growth from the previous ultrasound. 2. No sonographic evidence of gross structural abnormality disclosed. 3. Amniotic fluid volume assessment is normal. Narrative 09/24/2020 12:58 PM EDT OBSTETRICS REPORT (Signed Final 09/24/2020 12:58) PATIENT INFO: ID #: [id number] : [birth year] (25 yrs)(F) Name: BARBRA YANCEY Visit Date: 09/24/2020 10:49 HYACINTH PERFORMED BY: Performed By: Jordyn La RDMS Attending: Lucien Coronado MD Referred By: [facility] Ref. Address: [address] [place] [address] Location: [facility] SERVICE(S) PROVIDED: OB Follow-up, 1 fetus [id number] INDICATIONS: Screening for follow-up survey Z36.2 Obesity in , antepartum O99.210 Smoking (tobacco) complicating , O99.332 second trimester Known or suspected damage to fetus by O35.5XX0 drugs THC Supervision of other high risk , O09.90 antepartum H/O shoulder dystocia prior preg VITAL SIGNS: Weight (lb): 232 Height: 5'4 BMI: 39.82 EVALUATION: Num Of Fetuses: 1 Heart Rate(bpm): 152 Cardiac Activity: Present & appears normal Presentation: Cephalic Placenta: Fundal anterior away for os Amniotic Fluid GUSTAVO FV: Subjectively within normal limits GUSTAVO Sum(cm) %Tile Largest Pocket(cm) 11.42 20 3.61 RUQ(cm) RLQ(cm) LUQ(cm) LLQ(cm) 3.61 2.05 3.29 2.47 BIOMETRY: BPD: 62 mm G.Age: 25w 1d 32 % HC: 229 mm G.Age: 25w 0d 14 % AC: 203.4 mm G.Age: 25w 0d 26 % FL: 47.4 mm G.Age: 25w 6d 49 % HUM: 42.5 mm G.Age: 25w 4d 46 % LV: 5.3 mm TIB: 40 mm G.Age: 25w 2d 42 % CI: 73.93 % 70 - 86 FL/HC: 20.7 % 18.7 - 20.3 HC/AC: 1.13 1.04 - 1.22 FL/BPD: 76.5 % 71 - 87 FL/AC: 23.3 % 20 - 24 Est. FW: 791 gm 1 lb 12 oz 33 % OB HISTORY: : 3 Term: 1 SAB: 1 GESTATIONAL AGE: U/S Today: 25w 2d RADHA: 01/05/21 Best: 25w 3d Det. By: Early RADHA: 01/04/21 Ultrasound (05/11/20) TARGETED ANATOMY: Central Nervous System Calvarium/Cranial V.: Appears normal Intracranial Inca: Previously seen Cavum: Previously seen Lateral Ventricles: Previously seen Choroid Plexus: Previously seen Cereb./Vermis: Previously seen Midline Falx: Previously seen Spine Cervical: Previously seen Thoracic: Previously seen Lumbar: Previously seen Sacral: Previously seen Shape/Curvature: Previously seen Head/Neck Face: Previously seen Lips: Previously seen Neck: Previously seen Nuchal Fold: Not evaluated d/t GA Nasal Bone: Present Profile: Appears normal Orbits/Eyes: Appears normal Mandible: Previously seen Maxilla: Previously seen Thorax Thoracic Contour: Appears normal Lungs: Appears normal 4 Chamber View: Appears normal Cardiac Motion: Appears normal Cardiac Rhythm: Normal Rt Outflow Tract: Appears normal Lt Outflow Tract: Appears normal Aortic Arch: Previously seen Ductal Arch: Previously seen SVC: Previously seen Cardiac Marshall: Appears normal Diaphragm: Appears normal 3 Vessel View: Appears normal IVC: Previously seen Crossing: Appears normal Abdomen Ventral Wall: Previously seen Cord Insertion: Previously seen Situs: Previously seen Stomach: Appears normal Lt Kidney: Appears normal Rt Kidney: Appears normal Bladder: Appears normal Extremities Lt Humerus: Previously seen Rt Humerus: Previously seen Lt Forearm: Previously seen Rt Forearm: Previously seen Lt Hand: Previously seen Rt Hand: Previously seen Lt Femur: Previously seen Rt Femur: Previously seen Lt Lower Leg: Previously seen Rt Lower Leg: Previously seen Lt Foot: Appears normal Rt Foot: Not well visualized Other Umbilical Cord: Appears normal Genitalia: Male CERVIX UTERUS ADNEXA: Cervix Normal appearance by abdominal scan Uterus Gravid uterus Left Ovary Size(cm) 2.62 x 2.4 x 1.65 Vol(ml): 5.43 Visualized Right Ovary Size(cm) 2.35 x 2.63 x 1.15 Vol(ml): 3.72 Visualized Cul De Sac No fluid seen Adnexa No adnexal masses identified COMMENTS: 1. Ultrasound is not diagnostic for chromosomal abnormalities, will not detect all structural abnormalities, and is not diagnostic for genetic disorders even if multiple exams are performed during a given . 2. Images of optimal diagnostic quality could not be obtained. RECOMMENDATIONS: 1. Subsequent follow up as clinically determined by primary OB provider unless otherwise specified by MFM. 2. Results forwarded to ordering provider so they can follow up with the patient as necessary. Lucien Coronado MD Electronically Signed Final Report 09/24/2020 12:58 Procedure Lucien Richards MD - 09/24/2020 OBSTETRICS REPORT (Signed Final 09/24/2020 12:58) PATIENT INFO: ID #: [id number] : [birth year] (25 yrs)(F) Name: BARBRA YANCEY Visit Date: 09/24/2020 10:49 HYACINTH PERFORMED BY: Performed By: Jordyn La RDMS Attending: Lucien Coronado MD Referred By: [facility] Ref. Address: [address] [place] [address] Location: [facility] SERVICE(S) PROVIDED: OB Follow-up, 1 fetus [id number] INDICATIONS: Screening for follow-up survey Z36.2 Obesity in , antepartum O99.210 Smoking (tobacco) complicating , O99.332 second trimester Known or suspected damage to fetus by O35.5XX0 drugs THC Supervision of other high risk , O09.90 antepartum H/O shoulder dystocia prior preg VITAL SIGNS: Weight (lb): 232 Height: 5'4 BMI: 39.82 EVALUATION: Num Of Fetuses: 1 Heart Rate(bpm): 152 Cardiac Activity: Present & appears normal Presentation: Cephalic Placenta: Fundal anterior away for os Amniotic Fluid GUSTAVO FV: Subjectively within normal limits GUSTAVO Sum(cm) %Tile Largest Pocket(cm) 11.42 20 3.61 RUQ(cm) RLQ(cm) LUQ(cm) LLQ(cm) 3.61 2.05 3.29 2.47 BIOMETRY: BPD: 62 mm G.Age: 25w 1d 32 % HC: 229 mm G.Age: 25w 0d 14 % AC: 203.4 mm G.Age: 25w 0d 26 % FL: 47.4 mm G.Age: 25w 6d 49 % HUM: 42.5 mm G.Age: 25w 4d 46 % LV: 5.3 mm TIB: 40 mm G.Age: 25w 2d 42 % CI: 73.93 % 70 - 86 FL/HC: 20.7 % 18.7 - 20.3 HC/AC: 1.13 1.04 - 1.22 FL/BPD: 76.5 % 71 - 87 FL/AC: 23.3 % 20 - 24 Est. FW: 791 gm 1 lb 12 oz 33 % OB HISTORY: : 3 Term: 1 SAB: 1 GESTATIONAL AGE: U/S Today: 25w 2d RADHA: 07/20/21 Best: 25w 3d Det. By: Early RADHA: 01/04/21 Ultrasound (05/11/20) TARGETED ANATOMY: Central Nervous System Calvarium/Cranial V.: Appears normal Intracranial Nica: Previously seen Cavum: Previously seen Lateral Ventricles: Previously seen Choroid Plexus: Previously seen Cereb./Vermis: Previously seen Midline Falx: Previously seen Spine Cervical: Previously seen Thoracic: Previously seen Lumbar: Previously seen Sacral: Previously seen Shape/Curvature: Previously seen Head/Neck Face: Previously seen Lips: Previously seen Neck: Previously seen Nuchal Fold: Not evaluated d/t GA Nasal Bone: Present Profile: Appears normal Orbits/Eyes: Appears normal Mandible: Previously seen Maxilla: Previously seen Thorax Thoracic Contour: Appears normal Lungs: Appears normal 4 Chamber View: Appears normal Cardiac Motion: Appears normal Cardiac Rhythm: Normal Rt Outflow Tract: Appears normal Lt Outflow Tract: Appears normal Aortic Arch: Previously seen Ductal Arch: Previously seen SVC: Previously seen Cardiac Marshall: Appears normal Diaphragm: Appears normal 3 Vessel View: Appears normal IVC: Previously seen Crossing: Appears normal Abdomen Ventral Wall: Previously seen Cord Insertion: Previously seen Situs: Previously seen Stomach: Appears normal Lt Kidney: Appears normal Rt Kidney: Appears normal Bladder: Appears normal Extremities Lt Humerus: Previously seen Rt Humerus: Previously seen Lt Forearm: Previously seen Rt Forearm: Previously seen Lt Hand: Previously seen Rt Hand: Previously seen Lt Femur: Previously seen Rt Femur: Previously seen Lt Lower Leg: Previously seen Rt Lower Leg: Previously seen Lt Foot: Appears normal Rt Foot: Not well visualized Other Umbilical Cord: Appears normal Genitalia: Male CERVIX UTERUS ADNEXA: Cervix Normal appearance by abdominal scan Uterus Gravid uterus Left Ovary Size(cm) 2.62 x 2.4 x 1.65 Vol(ml): 5.43 Visualized Right Ovary Size(cm) 2.35 x 2.63 x 1.15 Vol(ml): 3.72 Visualized Cul De Sac No fluid seen Adnexa No adnexal masses identified COMMENTS: 1. Ultrasound is not diagnostic for chromosomal abnormalities, will not detect all structural abnormalities, and is not diagnostic for genetic disorders even if multiple exams are performed during a given . 2. Images of optimal diagnostic quality could not be obtained. RECOMMENDATIONS: 1. Subsequent follow up as clinically determined by primary OB provider unless otherwise specified by MFM. 2. Results forwarded to ordering provider so they can follow up with the patient as necessary. Lucien Coronado MD Electronically Signed Final Report 09/24/2020 12:58 IMPRESSION: IMPRESSION: 1. Single intrauterine with expected interval growth from the previous ultrasound. 2. No sonographic evidence of gross structural abnormality disclosed. 3. Amniotic fluid volume assessment is normal. us Chris Cobian MD [facility] [place] Final Result documented in this encounter Visit Diagnoses Diagnosis Obesity affecting in second trimester- Primary Tobacco smoking affecting in second trimester History of marijuana use History of migraine during Supervision of other high-risk Hx of shoulder dystocia in prior , currently documented in this encounter Care Teams Butter Melter Relationship Specialty Start Date End Date No Pcp, [place] [address] PCP - General Family Medicine 09/16/24 documented as of this encounter
--- OUTSIDE RECORDS SUMMARY | 2025-03-19 14:08 | XMS_ITS | Clinical Summary ---
Author Organization [facility] Address [address] [place] [address] Care Team Providers Care Bicycle Repairman Name Role Phone Self, Referred Primary Care Provider Unavailabl e Allergies Active Allergy Reactions Criticality Noted Date Comments Other Other 01/13/2024 Triametic Social History Tobacco Use Types Packs/Day Years Used Date Smoking Tobacco: Never Assessed Comments Unknown Sex and Gender Information Value Date Recorded Sex Assigned at Not on file Legal Sex Female 1:36 PM EDT Gender Identity Not on file Sexual Orientation Not on file Last Filed Vital Signs Vital Sign Reading Time Taken Comments Blood Pressure 95/62 01/13/2024 5:16 PM EDT Pulse 98 01/13/2024 5:16 PM EDT Temperature 37 C (98.6 F) 01/13/2024 1:42 PM EDT Respiratory Rate 22 01/13/2024 5:16 PM EDT Oxygen Saturation 97% 01/13/2024 5:16 PM EDT Inhaled Oxygen Concentration - - Weight 72.6 kg (160 lb) 01/13/2024 1:42 PM EDT Height 160 cm (5' 3 ) 01/13/2024 1:42 PM EDT Body Mass Index 28.34 01/13/2024 1:42 PM EDT Plan of Treatment Health Maintenance Due Date Last Done Comments Varicella Vaccines (2 of 2 - 2-dose childhood series) 02/12/2003 11/20/2002 Depression Screening 2007 Pneumococcal Vaccine: Pediatrics (0 to 5 Years) and At-Risk Patients (6 to 64 Years) (1 of 2 - PCV) 09/12/2014 Pap Smear 09/12/2016 COVID-19 Vaccine ( - 2024-25 season) 2025 Influenza Vaccine (#1) 2025 04/24/2014 Adult Tetanus 02/27/2033 02/27/2023, 11/18, 12/27/2018 Zoster Vaccines (1 of 2) 09/12/2045 11/20/2002 IPV Vaccines Completed 04/03/2002, 01/18, 12/05/2001, Additional history exists HIB Vaccines Completed 11/20/2002, 03/19, 02/07/2002, Additional history exists HPV Vaccines Aged Out No longer eligi ble based on patient's age to complete this topic Meningococcal B Vaccine Aged Out No l onger eligible based on patient's age to complete this topic Meningococcal Vaccine Aged Out No rebeca neelam eligible based on patient's age to complete this topic Rotavirus Vaccines Aged Out No longer eligible based on patient's age to complete this topic Insurance [employer] [place] [employer] Care Teams Bicycle Repairman Relationship Specialty Start Date End Date SELF, REFERRED [address] PCP - General 01/13/24
--- OUTSIDE RECORDS SUMMARY | 2025-03-19 14:08 | XMS_ITS | Encounter Summary ---
Author Organization [employer] Address [facility] [place] [id number] [address] [place] [address] Care Team Providers Care Completion Supervisor Name Role Phone No Pcp, No Pcp Primary Care Provider Unavailabl e Reason for Visit * Reason Onset Date Comments Phone Encounter 07/02/2020 Encounter Details Date Type Department Care Team (Late st Contact Info) Description 07/02/2020 Telephone [facility] [address] [facility] [address] [place] [address] Tonie Balbuena, BARK SCALER-SAMPLE MOUNTER [address] [place] [address] Phone Encounter Social History Tobacco Use Types Packs/Day Years [...] have Coronavirus / COVID-19? No / Unsure 07/02/2020 4:56 PM EST documented as of this encounter Miscellaneous Notes * Telephone Encounter - Dorina Quiles - 07/02/2020 4:08 PM EST Pt calls 13w3d stating that she is going to [facility] , after recommendations that Tonie Tellez NP suggested did not help, she will go for evaluation and IV fluids, pt still not able to keep anything down documented in this encounter Plan of Treatment Not on file documented as of this encounter Visit Diagnoses Not on filedocumented in this encounter Care Teams Completion Supervisor Relationship Specialty Start Date End Date No Pcp, [place] [address] PCP - General Family Medicine 09/16/24 documented as of this encounter
--- OUTSIDE RECORDS SUMMARY | 2025-03-19 14:08 | XMS_ITS | Encounter Summary ---
Author Organization [employer] Address [facility] [id number] [address] [place] [address] Care Team Providers Care Customer Solutions Specialist Name Role Phone No Pcp, No Pcp Primary Care Provider Unavailabl e Encounter Details Date Type Department Care Team (Late st Contact Info) Description 01/14/2024 Telephone [facility] [address] [place] [address] Daiana Guerin Social History Tobacco Use Types Packs/Day Years Used Date Smoking Tobacco: Former Cigarettes Smokeless Tobacco: Never Comments:Down to 2-3 cig/day with Alcohol Use Standard Drinks/Week Comments Never 0 (1 standard drink = 0.6 oz pur e alcohol) [facility] Utilities Answer Date Recorded In the past 12 months has e [employer], gas, oil, or water [email or web address] threatened to shut off services in your home? No 01/14/2024 AUDIT-C Answer Date Recorded Q1: How often do you have a drink containing alcohol? Never 01/14/2024 Q2: How many drinks containi ng alcohol do you have on a typical day when you are drinking? Patient does not drink Q3: How often do you have si x or more drinks on one occasion? Never 01/14/2024 PHQ-2 Answer Date Recorded Total Score 0 01/05/2022 PRAPARE - Transportation Answer Date Re corded In the past 12 months, has l ack of transportation kept you from medical appointments or from getting medications? No 12/18 In the past 12 months, has l ack of transportation kept you from meetings, work, or from getting things needed for daily living? No 01/14/2024 Housing Instability Answer Date Recorde d Are you worried or concerned that in the next two months you may not have stable housing that you own, rent or stay in as a part of a household? No 01/14/2024 Childcare Answer Date Recorded Childcare Unknown 04/28/2020 Employment Answer Date Recorded Employment Unknown 04/28/2020 Hunger Screening Answer Date Recorded Within the past 12 months we worried whether our food would run out before we got money to buy more. Never True 01/14/2024 Within the past 12 months th e food we bought just didn't last and we didn't have money to get more. Never True 01/14/2024 Purpose - Life Answer Date Recorded Purpose and direction in life Unknown Comments No Sex and Gender Information Value Date Recorded Sex Assigned at Not on file Legal Sex Female 12:16 PM EDT Gender Identity Not on file Sexual Orientation Not on file documented as of this encounter Functional Status * Question Answer Date of Assessment Author Functional Status Independent 01/15/2024 3:54 PM EDT Cassidy Jones RN * Audit-C Score Answer Date of Assessment Author 0 01/14/2024 11:56 AM EDT Nano Diaz RN * Question Answer Date of Assessment Author Q1: How often do you have a drink containing alcohol? Never 01/14/2024 11:56 AM EDT Nano Diaz , HENNA Q2: How many drinks containing alcohol do you have on a typical day when you are drinking? Patient does not drink 01/14/2024 11:56 AM EDT Nano Diaz, HENNA Q3: How often do you have six or more drinks on one occasion? Never 01/14/2024 11:56 AM EDT Nano Diaz , HENNA documented as of this encounter Miscellaneous Notes * Telephone Encounter - Daiana Guerin - 01/14/2024 8:46 AM EDT [id number] documented in this encounter Plan of Treatment Not on file documented as of this encounter Goals Goal Patient Goal Type Associated Problems Recent Progress Patient-Stated? Author safe transition from hospital General Yes Cassidy Jones, RN Note: Evaluation of progress towards goal: progressing towards safe discharge from hospital documented as of this encounter Visit Diagnoses Not on filedocumented in this encounter Additional Health Concerns Assessment Noted Time PHQ-9 Depression Total Score: 0 01/06/20 22 8:57 AM EDT documented as of this encounter Care Teams Customer Solutions Specialist Relationship Specialty Start Date End Date No Pcp, [place] [address] PCP - General Family Medicine 09/16/24 documented as of this encounter
--- OUTSIDE RECORDS SUMMARY | 2025-03-19 14:08 | XMS_ITS | Encounter Summary ---
Author Organization [employer] Address [facility] [id number] [address] [place] [address] Care Team Providers Care Animal Daycare Provider Name Role Phone No Pcp, No Pcp Primary Care Provider Unavailabl e Reason for Visit * Reason Onset Date Comments Transition Of Care 01/18/2024 Encounter Details Date Type Department Care Team (Late st Contact Info) Description 01/18/2024 [facility]phone [facility] [address] [place] [address] [place] [address] Fe James RN Transition Of Care Social History Tobacco Use Types Packs/Day Years Used Date Smoking Tobacco: Former Cigarettes Smokeless Tobacco: Never Comments:Down to 2-3 cig/day with Alcohol Use Standard Drinks/Week Comments Never 0 (1 standard drink = 0.6 oz pur e alcohol) [facility] Utilities Answer Date Recorded In the past 12 months has [employer], gas, oil, or water [employer] threatened to shut off services in your [...] on file documented as of this encounter Miscellaneous Notes * Telephone Encounter - Fe James RN - 01/18/2024 1:30 PM EDT Images from the original note were not included. Transition of Care Additional Questions/Concerns Requiring PCP Follow-Up: -Patient was encouraged to make a hospital follow up appointment with her PCP. This documentation is being used for Transition of Care purposes: Yes Goal: Patient will demonstrate a safe transition from hospital to home. Diagnosis on Discharge: Pelvic abscess in female Discharge Specialty: Infectious Disease Name of Discharging Facility: [facility] Date of Facility Discharge: 01.13.24-01.17.24 Date of Interactive Contact and Name of Change Management Administrator: 01.18.24 1330 Spoke with the patient. Medication Review Completed: No -We discussed the new medications that were ordered at discharge. She declines to review her complete medication list. She has no questions about her medications at this time. Follow Up Appointments with Providers: Primary: MELIDA OVALLE APRN-TUBE FITTER TBD Specialty: OB-Environmental Programs Specialist TBD Review of Pending Lab/Diagnostic Tests and Plan for Completion: -None Assessment and Support of Treatment Regimen Adherence and Medication Management: -Patient reports that she continues to have a lot of abdominal pain. It is not getting worse, it isjust not getting better. -Patient denies any chest pain, shortness of breath, fever or vomiting. -Patient continues to have some mild nausea that comes and goes. -Patient is independent with her medication and treatment regime. Education Provided by [facility] to Support Self-Management, Independent Living and ADLs: -Patient is staying with her best friend at this time. -Patient denies the need for any DME. -Medication education was provided. -Encouraged to call the office with any questions, concerns, new or worsening symptoms. -Instructed to call 911 with any sudden shortness of breath or chest pain. -Explained TCM services that are available. Explained that [facility] will be available to provide assistance for a minimum of 30 days post discharge. Cheryl Messer's contact information was provided and encouraged patient to call for assistance as needed. Communication with Home Health Agencies and Other Services Utilized/Needed by the Patient: -Patient is waiting to here back from IR regarding drain removal. documented in this encounter Plan of Treatment [...] documented as of this encounter Care Teams Animal Daycare Provider Relationship Specialty Start Date End Date No Pcp, [place] [address] PCP - General Family Medicine 09/16/24 documented as of this encounter
--- OUTSIDE RECORDS SUMMARY | 2025-03-19 14:08 | XMS_ITS | Encounter Summary ---
Author Organization [employer] Sys tem Address [facility] [id number] [address] [place] [address] Care Team Providers Care Clean Up Helper Banquet Name Role Phone No Pcp, No Pcp Primary Care Provider Unavailabl e Encounter Details Date Type Department Care Team (Late st Contact Info) Description 05/20/2020 Telephone [facility] [address] [place] [phone] Roxanne Green, CPT Social History Tobacco Use Types Packs/Day Years Used Date Smoking Tobacco: Every Day Cigarettes Smokeless Tobacco: Never Comments:Down to 2-3 [...] Employment Answer Date Recorded Employment Unknown 04/28/2020 Comments Yes Sex and Gender Information Value Date Recorded Sex Assigned at Not on file Legal Sex Female 12:16 PM EDT Gender Identity Not on file Sexual Orientation Not on file COVID-19 Exposure Response Date Recorded In the last month, have you been in contact with someone who was confirmed or suspected to have Coronavirus / COVID-19? No / Unsure 05/23/2020 3:29 PM EST documented as of this encounter Miscellaneous Notes * Telephone Encounter - Roxanne Green CPT - 05/20/2020 8:50 AM EST Barbra called and stated that she spoke with you about migraines she has been having an wondered if you could prescribe something to help with one she is having today. I told her that we would call her back if we could not and otherwise to check [facility] in [place] later * Telephone Encounter - FREDRICK Caban - 05/20/2020 8:50 AM EST I called patient and discussed taking 2 extra strength tylenol as well as 10 mg reglan together to help with headache. Patient was prescribed reglan 5 mg yesterday for nausea / vomiting but has not picked up rx from pharmacy yet. Patient encouraged to go to pharmacy this morning to pick it up to help with headache. Patient will call if therapy is not effective. documented in this encounter Plan of Treatment Not on file documented as of this encounter Visit Diagnoses Not on filedocumented in this encounter Care Teams Clean Up Helper Banquet Relationship Specialty Start Date End Date No Pcp, No Pcp DAISHA [place] [address] PCP - General Family Medicine 09/16/24 documented as of this encounter
--- OUTSIDE RECORDS SUMMARY | 2025-03-19 14:08 | XMS_ITS | Encounter Summary ---
Author Organization [facility] tem Address [facility] [id number] [address] [place] [address] Care Team Providers Care Underground Truck Operator Name Role Phone No Pcp, No Pcp Primary Care Provider Unavailabl e Encounter Details Date Type Department Care Team (Late st Contact Info) Description 09/22/2020 Orders Only [facility] [address] [phone] Morelia Vivar, HENNA Social History Tobacco Use Types Packs/Day Years [...] have Coronavirus / COVID-19? No / Unsure 09/24/2020 9:58 AM EDT documented as of this encounter Plan of Treatment Not on file documented as of this encounter Visit Diagnoses Not on filedocumented in this encounter Care Teams Underground Truck Operator Relationship Specialty Start Date End Date No Pcp, [place] [address] PCP - General Family Medicine 09/16/24 documented as of this encounter
--- OUTSIDE RECORDS SUMMARY | 2025-03-19 14:08 | XMS_ITS | Encounter Summary ---
Author Organization [facility] Sys tem Address [facility] [id number] [address] [place] [address] Care Team Providers Care Metallurgical Laboratory Assistant Name Role Phone No Pcp, No Pcp Primary Care Provider Unavailabl e Encounter Details Date Type Department Care Team (Late st Contact Info) Description 08/28/2023 Orders Only [facility] [address] [place] [address] [address] [place] [phone] External, Scanning Provider Social History Tobacco Use Types Packs/Day Years [...] of Binge Drinking Not on file 04/19 PHQ-2 Answer Date Recorded Total Score 0 01/05/2022 Childcare Answer Date Recorded Childcare Unknown 04/28/2020 [...] Procedure Name Priority Date/Time Associated Diagnosis Comments XR CHEST 1 VW Routine 08/15/2023 11:23 AM EST documented in this encounter Results * X-ray chest 1 view (08/15/2023 11:23 AM EST) Anatomical Region Laterality Modality Body, Chest N/A Computed Radiogr aphy us Scanning Provider External IMG DIAGNOSTIC IMAGIN G ORDERABLES Final Result documented in this encounter Visit Diagnoses Not on filedocumented in this encounter Additional Health Concerns Assessment Noted Time PHQ-9 Depression Total Score: 0 01/06/20 22 8:57 AM EDT documented as of this encounter Care Teams Metallurgical Laboratory Assistant Relationship Specialty Start Date End Date No Pcp, [place] [address] PCP - General Family Medicine 09/16/24 documented as of this encounter
--- OUTSIDE RECORDS SUMMARY | 2025-03-19 14:08 | XMS_ITS | Encounter Summary ---
Author Organization [facility] Address [address] [place] [address] Care Team Providers Care Sandfill Operator Surface Name Role Phone Unallocated, Noms Provider Primary Care Provi lala Ar Bains MD Unavailable [phone] Encounter Details Date Type Department Care Team (Late st Contact Info) Description 12/07/2022 Abstract MARIE VILLALOBOS [address] [facility] [address] [place] [phone] Ar Bains MD [address] [facility] [place] [facility] [address] [place] [address] Social History Tobacco Use Types Packs/Day Years Used Date Smoking Tobacco: Every Day Cigarettes Tobacco Cessation:Ready to Q uit: Not Asked; [...] on filedocumented in this encounter Care Teams Sandfill Operator Surface Relationship Specialty Start Date End Date Unallocated, Marie Ivan MD [address] [place] [address] PCP - General 12/01/22 Ar Bains MD [address] [facility] [address] [place] [address] Obstetrics and Gynecology 03/08/23 documented as of this encounter
--- OUTSIDE RECORDS SUMMARY | 2025-03-19 14:08 | XMS_ITS | Encounter Summary ---
Author Organization [employer] Address [id number] [address] [place] [address] Care Team Providers Care Coding Director Name Role Phone No Pcp, No Pcp Primary Care Provider Unavailabl e Reason for Referral * Diagnostic Imaging (Routine) - Closed Specialty Diagnoses / Procedures Referred By Contac t Referred To Contact Radiology Diagnoses Acute chest pain Procedures CT chest with contrast [facility] [address] [place] [phone] Phone: tel: fax: Referral ID Status Reason Start Date Expiration Date Visits Re quested Visits Authorized [id number] Closed 01/14/2024 01/13/2025 1 1 * Diagnostic Imaging (Routine) - Closed Specialty Diagnoses / Procedures Referred By Contac t Referred To Contact Radiology Diagnoses Pain Procedures CT abdomen and pelvis with contrast [facility] [address] [place] [phone] Phone: tel: fax: Referral ID Status Reason Start Date Expiration Date Visits Re quested Visits Authorized [id number] Closed 01/14/2024 01/13/2025 1 1 Encounter Details Date Type Department Care Team (Late st Contact Info) Description 01/14/2024 Orders Only [facility] [place] [phone] Transcribe, Orders Support User Pain (Primary Dx); Acute chest pain Social History Tobacco Use Types Packs/Day Years Used Date Smoking Tobacco: Former Cigarettes Smokeless Tobacco: Never Comments:Down to 2-3 cig/day with Alcohol Use Standard Drinks/Week Comments Never 0 (1 standard drink = 0.6 oz pur e alcohol) [facility] Utilities Answer Date Recorded In the past 12 months has th e [employer], gas, oil, or water company threatened to shut [...] Never 01/14/2024 11:56 AM EDT Nano Diaz RN Q2: How many drinks containing alcohol do you have on a typical day when you are drinking? Patient does not drink 01/14/2024 11:56 AM EDT Nano Diaz RN Q3: How often do you have six or more drinks on one occasion? Never 01/14/2024 11:56 AM EDT Nano Diaz RN documented as of this encounter Plan of Treatment Not on file documented as of this encounter Goals Goal Patient Goal Type Associated Problems Recent Progress Patient-Stated? Author safe transition from hospital General Yes Cassidy Jones RN Note: Evaluation of progress towards goal: progressing towards safe discharge from hospital documented as of this encounter Results * CT chest with contrast (01/13/2024 3:30 PM EDT) us Scanning Provider External IMG CT ORDERABLES Fin al Result * CT abdomen and pelvis with contrast (01/13/2024 3:25 PM EDT) us Scanning Provider External IMG CT ORDERABLES Fin al Result documented in this encounter Visit Diagnoses Diagnosis Pain- Primary Generalized pain Acute chest pain Unspecified chest pain documented in this encounter Additional Health Concerns Assessment Noted Time PHQ-9 Depression Total Score: 0 01/06/20 22 8:57 AM EDT documented as of this encounter Care Teams Coding Director Relationship Specialty Start Date End Date No Pcp, [place] [address] PCP - General Family Medicine 09/16/24 documented as of this encounter
--- OUTSIDE RECORDS SUMMARY | 2025-03-19 14:08 | XMS_ITS | Clinical Summary ---
Author Organization [employer] Address [id number] [address] [place] [address] Care Team Providers Care Oxyhydrogen Welder Name Role Phone No Pcp, No Pcp Primary Care Provider Unavailabl e Allergies Active Allergy Reactions Criticality Noted Date Comments Rdsnujezrcogy-Wz-Ofgfdgrdkrjxb Anaphylaxis High 07/2016 Throat Swells Medications acetaminophen (TYLENOL EXTRA STRENGTH) 500 mg tablet Take 2 tablets (1,000 mg total) by mouth every 8 (eight) hours as needed for pain. 30 tablet 12/01/19 21 Active Additional Information Patient not taking.Reported on 01/22/2024 ibuprofen (ADVIL,MOTRIN) 800 mg tablet Take 1 tablet (800 mg total) by mouth every 8 (eight) hours as needed (cramping). 30 tablet 12/01/19 21 Active Additional Information Patient not taking.Reported on 01/22/2024 nystatin (MYCOSTATIN) creamIndications:T hrush Apply 1 application topically in the morning and 1 application before bedtime. 30 g 01/06/20 22 Active Additional Information Patient not taking.Reported on 01/22/2024 acetaminophen (TYLENOL EXTRA STRENGTH) 500 mg tablet Take 2 tablets (1,000 mg total) by mouth every 8 (eight) hours. 30 tablet 01/18/20 24 Active Additional Information Patient not taking.Reported on 01/22/2024 ibuprofen (MOTRIN) 800 mg tablet Take 1 tablet (800 mg total) by mouth every 8 (eight) hours. 30 tablet 01/17/20 24 Active ondansetron ODT (ZOFRAN ODT) 4 mg disintegrating tablet Dissolve 1 tablet (4 mg total) on tongue every 8 (eight) hours as needed for nausea for up to 10 doses. 10 tablet 02/07/20 24 Active venlafaxine XR (EFFEXOR XR) 75 mg 24 hr capsule Take 1 capsule (75 mg total) by mouth daily with breakfast. 04/17/20 24 Active HYDROcodone-acetam inophen (NORCO) 5-325 mg per tablet Take 1 tablet by mouth every 6 (six) hours as needed for pain. Max Daily Amount: 4 tablets Active Active Problems Problem Noted Date Diagnosed Date Pelvic abscess in female 01/13/2024 Thrush 01/05/2022 premature rupture of membranes (PPROM) with unknown onset of labor 11/27/2020 Encounter for suspected lilian ature rupture of amniotic membranes, with rupture of membranes not found 09/21/2020 Hx of shoulder dystocia in p rior , currently 09/08/2020 Overview (09/08/2020): Patient states she had a terrible tear with first delivery. Previous records show complicated second degree perineal and right labial laceration . We discussed options for elective c/s including risks / benefits. History of migraine during 05/20/2020 Overview (05/20/2020): Patient encouraged to take one gram of acetaminophen along with 10 mg Reglan as needed for migraine Nausea/vomiting in 04/28/2020 Overview (04/28/2020): Unisom / b6 ordered Tobacco smoking affecting 04/28/2020 Overview (08/11/2020): Patient states she has cut back from one pack per day to 2-3 cigs per day. QUIT History of marijuana use 04/28/2020 Overview (04/28/2020): Patient states she stopped when she found out she was . Obesity affecting 04/28/2020 Overview (09/08/2020): Discussed healthy diet / weight gain / exercise MFM recommendation for BMI>40: BPP weekly @ 32wks, add NST @ 36wks Immunizations Immunization Administration Dates Next Due DTP / HiB 04/17/1996,02/01/1996,1995 DTaP, Unspecified 11/20/2002, 2,02/07/2002,12/05/2001 ,10/31/2000,11/01/1996 Hep B / HIB 11/20/2002,02/07/2002,12/05/2001 Hep B, Adolescent or Pediatric 04/17/1996,1995,1995 HiB 04/03/2002,11/01/1996 IPV 04/03/2002,02/07/2002,12/05/2001 ,10/31/2000 Influenza (IM) Preservative Free 04/24/2014 MMR 12/08/2021, 5,11/20/2002,10/31/2000 ,11/01/1996 OPV 04/17/1996,02/01/1996,1995 Tdap 02/27/2023,12/08/2021,12/27/2018 Varicella 11/20/2002 Family History Medical History Relation Name Comments No Known Problems Half Brother 1 No Known Problems Half Brother 2 Cancer Maternal Grandfather Skin Diabetes Maternal Grandfather Lung cancer Maternal Grandfather Seizures Maternal Grandfather No Known Problems Maternal Grandmother Breast cancer Maternal great-grandmother 1 Ovarian cancer Maternal great-grandmother 2 maternal d ad's side Asthma Mother Depression Mother Diabetes Mother Gallbladder disease Mother Hypertension Mother Relation Name Status Comments Father unknown hx Alive Half Brother 1 Alive Half Brother 2 Alive Maternal Grandfather Alive Maternal Grandmother Alive Maternal great-grandmother 1 Maternal great-grandmother 2 maternal dad's side Decea sed Mother Alive Paternal Grandfather unknown hx Paternal Grandmother unknown hx Social History Tobacco Use Types Packs/Day Years Used Date Smoking Tobacco: Every Day Cigarettes Smokeless Tobacco: Never Tobacco Cessation:Ready to Q uit: Not Asked; Counseling Given: Not Answered Comments:Down to 2-3 cig/day with Alcohol Use Standard Drinks/Week Comments Not Currently 0 (1 standard drink = 0.6 oz pur e alcohol) [facility] Utilities Answer Date Recorded In the past 12 months has th e electric, gas, oil, or water company threatened to [...] got money to buy more. Never True 09/16/2024 Within the past 12 months th e food we bought just didn't last and we didn't have money to get more. Never True 09/16/2024 Purpose - Life Answer Date Recorded Purpose and direction in life Unknown Comments No Sex and Gender Information Value Date Recorded Sex Assigned at Not on file Legal Sex Female 12:16 PM EDT Gender Identity Not on file Sexual Orientation Not on file Last Filed Vital Signs Vital Sign Reading Time Taken Comments Blood Pressure 126/68 09/16/2024 7:20 PM EDT Pulse 105 09/16/2024 7:20 PM EDT Temperature 36.8 C (98.3 F) 09/16/2024 7:20 PM EDT Respiratory Rate 18 09/16/2024 7:20 PM EDT Oxygen Saturation 99% 09/16/2024 7:19 PM EDT Inhaled Oxygen Concentration - - Weight 67.1 kg (148 lb) 09/16/2024 7:20 PM EDT Height 160 cm (5' 3 ) 09/16/2024 7:20 PM EDT Body Mass Index 26.22 09/16/2024 7:20 PM EDT Plan of Treatment Health Maintenance Due Date Last Done Comments Tobacco Counseling 1995 Depression Screening 2007 Adult BMI Follow Up Plan 09/12/2013 Pap Smear 05/19/2023 05/19/2020 Influenza Vaccine 02/17/2025 04/24/2014 Adult BMI Screening 09/16/2025 09/16/2024 Tobacco Screening 09/16/2025 09/16/2024 DTaP,Tdap and Td Vaccines (9 - Td or Tdap) 02/27/2033 02/27/2023, 12/08/2021, 12/27/2018, Additional history exists Goals Goal Patient Goal Type Associated Problems Recent Progress Patient-Stated? Author safe transition from hospital General Yes Cassidy Jones, RN Note: Evaluation of progress towards goal: progressing towards safe discharge from hospital Medical Devices Not on file Procedures Procedure Name Priority Date/Time Associated Diagnosis Comments PAP SMEAR Routine 05/19/2020 12:02 PM EST with 7 completed weeks gestation from Last 3 Months or Most Recently Relevant to Health Maintenance Results * Pap Smear (05/19/2020 12:02 PM EST) 05/19/2020 12:0 2 PM EST 05/19/2020 12:03 PM EST Narrative COPATH - 05/21/2020 10:33 AM EST [facility] [address] [place] [address] Gynecologic Cytology Consultation Patient Name: BARBRA CLAROS : 1995 (Age: 24) Gender: F Taken: 05/19/2020 Reported: 05/21/2020 Physician(s): FREDRICK Ramachandran [phone]) Copy To: Med. Rec. #: [id number] Acct: # [id number] Final Cytologic Interpretation ThinPrep Pap Test (Cervical): Satisfactory for evaluation. A transformation zone component was not noted. The lack of a transformation zone component in a patient is not unusual. NEGATIVE FOR INTRAEPITHELIAL LESION OR MALIGNANCY. jja05/21/2020 Interpretation performed at [employer], [address] [place] [address], License number: [id number]. Electronically Signed Out By EUGENE Lao(ASCP) Date of Last Menstrual Period: (None Given) Other Clinical Conditions: Z3A.01 Less than 8 weeks gestation of Source of Specimen ThinPrep Pap Test (Cervical) Thin Prep Pap (RESEARCH QUALITY ASSURANCE ANALYST) Fee Code(s): G0145 The Pap test is a screening test with an inherent, but low, probability of error. The Pap test is primarily effective for the diagnosis and prevention of squamous cell carcinoma. Regular screening is critical for prevention. ThinPrep liquid-based slides, which meet the Unload Associate criteria for automated screening, have been screened by the [employer] [facility] (as of 03/05/07) along with an additional manual rescreening by a public address technician and, if indicated, by a pathologist. Tonie Balbuena MASTER CRAFTSMAN-THUMB SEWER PATHOLOGY/CYTOLOGY ORDER PATRICE Final Result COPATH from Last 3 Months or Most Recently Relevant to Health Maintenance Insurance [address] [place] [address] [employer]ICA[employer] Advance Directives * Full Code (Latest Code Status on File) Date Activated Date Inactivated Comments 11/27/2020 2:29 AM 11/30/2020 7:03 PM Care Teams Oxyhydrogen Welder Relationship Specialty Start Date End Date No Pcp, [place] [address] PCP - General Family Medicine 09/16/24
[2025-03-19 14:11] VITALS: BP 125/76; PULSE 104; TEMP 37; O2SAT 100; BMI 31.8
--- NOTE | 2025-03-19 14:20 | CT_ITS ---
[address] [address] Patient Name: TYRONE CLAROS MRN: [id number] date: 1995 Sex: F Assigned Patient Location: ER Current Patient Location: ER Accession/Order Number: [id number] Exam Date: 03/19/2025 14:31 Report Date: 03/19/2025 14:51 At the request of: THO NAVARRETE MD Procedure: CT abdomen pelvis wo con CT abdomen pelvis wo con 03/19/2025 2:34 PM SIGNS AND SYMPTOMS: Right lower quadrant pain, nausea and vomiting TECHNIQUE: Multidetector ct axial images of the abdomen and pelvis were obtained without IV contrast. Multiplanar reformats were performed and reviewed to further define anatomy and possible pathology. CT was performed with one or more of the following dose reduction techniques: Automated exposure control, adjustment of the mA and/or kV according to patient size, or use of iterative reconstruction technique. COMPARISON: 12/21/2024 FINDINGS: Lower Chest: Within normal limits. ABDOMEN: Liver: Within normal limits. Bile Ducts: Normal caliber. Gallbladder: No calcified gallstones. Normal caliber wall. Pancreas: Within normal limits. Spleen: Within normal limits. Adrenals: Within normal limits. Kidneys: Within normal limits. Pelvis: Reproductive Organs: There is a 6.0 cm dominant follicle/cyst in the right adnexa. Ureters: Within normal limits. Bladder: Within normal limits. Bowel: There is evidence of prior appendectomy. Mesenteric Lymph Nodes: No enlarged mesenteric lymph nodes. Peritoneum: No ascites or free air, no fluid collection. Vessels: within normal limits Retroperitoneum: Within normal limits. Abdominal Wall: Within normal limits. Bones: Degenerative changes are noted in the sacroiliac joints. CT/CT abdomen pelvis wo con IMPRESSION: No bowel obstruction or obstructive uropathy. There is a 6.0 cm dominant follicle/cyst in the right adnexa. No free fluid or free air. There is evidence of prior appendectomy. Impression dictated by: Addy Wilson M.D. 03/19/2025 2:51 PM Dictation Location[facility] Electronically authenticated by: [id number] Y Date: 03/19/2025 14:51
--- NOTE | 2025-03-19 14:20 | US_ITS ---
[address] [address] Patient Name: TYRONE CLAROS MRN: [id number] date: 1995 Sex: F Assigned Patient Location: ER Current Patient Location: ER Accession/Order Number: [id number] Exam Date: 03/19/2025 15:15 Report Date: 03/19/2025 16:15 At the request of: THO NAVARRETE MD Procedure: US pelvis transvaginal Pelvic ultrasound. Reason for exam: Right pelvic pain Comparison: none Technique: Ultrasound 08/28/2024 Transvaginal imaging of the uterus and ovaries was also obtained. Additional spectral Doppler analysis of the ovaries was also obtained. Findings: Patient is status post hysterectomy. The right ovary measures 4.0 x 3.8 x 3.9 cm. The left ovary is not visualized. A corpus luteum/hemorrhagic cyst is seen involving the right ovary measuring 4 cm. Normal arterial and venous Doppler waveforms. Small amount of free fluid is present within the right adnexa. US/US pelvis transvaginal Impression: A corpus luteum/hemorrhagic cyst is seen involving the right ovary. No evidence of right ovarian torsion. The left ovary is not visualized. Impression dictated by: Leonard Maria Jr., D.O. 03/19/2025 4:15 PM Dictation Location: [place] [address] Electronically authenticated by: [id number] Y Date: 03/19/2025 16:15
[2025-03-19 14:37] LABS: Hematocrit 36.6 % (36.0-48.0); Hemoglobin 12.3 g/dL (12.0-16.0); Immature Granulocytes Abs Auto 0.03 10^3/uL (0.00-0.03); Immature Granulocytes Pct Auto 0.4 % (0.0-0.5); Lymphocytes Absolute Auto 2.0 10^3/uL (1.2-3.8); Mean Corpuscular HGB Conc 33.6 g/dL (29.9-35.2); Mean Corpuscular Hemoglobin 29.4 pg (26.7-34.0); Mean Corpuscular Volume 87.6 fL (81.0-99.0); Platelet Count 291 10^3/uL (150-450); Red Blood Count 4.18 10^6/uL (4.20-5.40); White Blood Count 8.3 10^3/uL (4.0-11.0)
[2025-03-19] MEDS: KETOROLAC TROMETHAMINE 30 MG/ML VIAL 15 MG IVP (14:49)
[2025-03-19] MEDS: 0.9 % SODIUM CHLORIDE 1,000 ML 1000 ML IV (14:49)
[2025-03-19 14:55] LABS: Alanine Aminotransferase 36 U/L (14-59); Albumin Globulin Ratio 1.0; Albumin Level 3.9 g/dL (3.4-5.0); Alkaline Phosphatase 67 U/L (46-116); Anion Gap 13.0; Aspartate Amino Transferase 22 U/L (15-37); Blood Urea Nitrogen 8.0 mg/dL (7.0-18.0); Calcium 8.5 mg/dL (8.5-10.1); Carbon Dioxide 25.8 mmol/L (21.0-32.0); Chloride 105 mmol/L (98-107); Estimated GFR (African America >60 (>=60 mL/min/1.73m^2); Estimated GFR (Non-African Ame >60 (>=60 mL/min/1.73m^2); Globulin 4.0 g/dL; Glucose 100 mg/dL (74-106); Lipase 29.0 U/L (16.0-77.0); Potassium 3.8 mmol/L (3.5-5.1); Sodium 140 mmol/L (136-145); Total Protein 7.9 g/dL (6.4-8.2)
--- NOTE | 2025-03-19 15:17 | PC.NURSE ---
pt requesting more pain medicine for abd pain. informed dr guajardo
--- NOTE | 2025-03-19 15:50 | ED.ABDPAIN1 ---
HPI - Abdominal Pain General Chief Complaint: Abdominal Pain Stated Complaint: VOMITING R ABDOMINAL PAIN Time Seen by Provider: 03/19/25 14:16 Source: patient Mode of arrival: walk-in History of Present Illness HPI narrative: The patient is a 29-year-old female coming to the ER with a right lower quadrant abdominal pain that started over the last few days and gets worse whenever she eats, the pain is severe 10 out of 10 and is in the right lower quadrant The patient denies any fever chills but she does have some nausea with it and she also mentioned that she had a history of hysterectomy that is partial Related Data Home Medications ?Medication ?Instructions ?Recorded ?Confirmed oxcarbazepine 300 mg tablet 450 mg PO BEDTIME 12/21/24 01/27/25 buspirone 15 mg tablet 15 mg PO TID 03/19/25 03/19/25 cariprazine 4.5 mg capsule 4.5 mg PO DAILY 03/19/25 03/19/25 (Vraylar) hydroxyzine pamoate 50 mg capsule 50 mg PO TID PRN anxiety 03/19/25 03/19/25 trazodone 150 mg tablet 150 mg PO QPM PRN sleep 03/19/25 03/19/25 venlafaxine 150 mg 150 mg PO DAILY 03/19/25 03/19/25 capsule,extended release 24 hr venlafaxine 37.5 mg 37.5 mg PO DAILY 03/19/25 03/19/25 capsule,extended release 24 hr Allergies Allergy/AdvReac Type Severity Reaction Status Date / Time chlorpheniramine (From Allergy Severe Swelling Verified 11/01/24 14:06 Triaminic Cold and Cough) of Lip/Tongue/Throat dextromethorphan (From Allergy Severe Swelling Verified 11/01/24 14:06 Triaminic Cold and Cough) of Lip/Tongue/Throat pseudoephedrine (From Allergy Severe Swelling Verified 11/01/24 14:06 Triaminic Cold and Cough) of Lip/Tongue/Throat Review of Systems ROS Status of ROS 10 or more systems reviewed and unremarkable except as noted in history and below [facility] Surgical History History of appendectomy ?Z90.49 - Acquired absence of other specified parts of digestive tract (ICD-10) History of removal of ovarian cyst ?Z98.890 - Other specified postprocedural states (ICD-10) ?Z87.42 - Personal history of other diseases of the female genital tract (ICD-10) History of hysterectomy ?Z90.710 - Acquired absence of both cervix and uterus (ICD-10) Social History Little interest or pleasure in doing things: not at all Feeling down, depressed, or hopeless: not at all Exam Narrative Exam Narrative: Nurses notes and vital signs reviewed and patient is not hypoxic. General: Well-appearing and in no apparent distress. Skin: Warm, dry, no pallor noted. No rash. Head: Normocephalic, atraumatic. Neck: Supple, non-tender. Respiratory: No accessory muscle use or respiratory distress. Lungs are clear to auscultation, no wheezing, rales or rhonchi Chest Wall: no tenderness Back: No midline thoracic or lumbar vertebral tenderness. No CVA tenderness Musculoskeletal: normal ROM, no calf or popliteal tenderness, no lower extremity edema/swelling GI: Abdomen soft and there is tenderness on palpation of the right lower quadrant Neurological: A&O x4. No cranial nerve dysfunction observed. No truncal ataxia. Moves all extremities. Sensation intact. Psychiatric: Cooperative and interactive. Normal mood and affect. Constitutional Vital Signs, click to edit/add: Last Vital Signs Temp 98.6 F 03/19/25 14:11 Pulse 88 03/19/25 16:00 Resp 18 03/19/25 14:11 BP 125/76 03/19/25 14:11 Pulse Ox 99 03/19/25 16:00 O2 Del Method Room Air 03/19/25 14:11 Course Vital Signs Vital signs: Vital Signs Temperature 98.6 F 03/19/25 14:11 Pulse Rate 104 H 03/19/25 14:11 Respiratory Rate 18 03/19/25 14:11 Blood Pressure 125/76 03/19/25 14:11 Pulse Oximetry 100 03/19/25 14:11 Oxygen Delivery Method Room Air 03/19/25 14:11 Temperature 98.6 F 03/19/25 14:11 Pulse Rate 88 03/19/25 16:00 Respiratory Rate 18 03/19/25 14:11 Blood Pressure 125/76 03/19/25 14:11 Pulse Oximetry 99 03/19/25 16:00 Oxygen Delivery Method Room Air 03/19/25 14:11 MDM - Abdominal Pain MDM Narrative Medical decision making narrative: CBC and chemistry showed no acute significant pathology Toradol initially was not adequate to control the patient pain and she was provided with morphine for pain control CT of the abdomen pelvis showed that the patient have a 6 cm right ovarian cyst and the ultrasound clarified that with a 4 cm cyst that is mostly hemorrhagic with no signs of torsion I did discuss the case with and the plan was to reevaluate after the second dose of morphine but the patient still complaining of right lower quadrant pain that is severe after the second dose of morphine The patient again had her case discussed with Dr. Lara and she is coming for possible surgery Lab Data Labs: Lab Results 03/19/25 Range/Units 14:20 WBC 8.3 (4.0-11.0) 10^3/uL RBC 4.18 L (4.20-5.40) 10^6/uL Hgb 12.3 (12.0-16.0) g/dL Hct 36.6 (36.0-48.0) % MCV 87.6 (81.0-99.0) fL MCH 29.4 (26.7-34.0) pg MCHC 33.6 (29.9-35.2) g/dL RDW 13.2 (11.0-15.0) % Plt Count 291 (150-450) 10^3/uL MPV 9.4 L (9.5-13.5) fL Neut % (Auto) 69.4 (43.0-75.0) % Lymph % (Auto) 23.8 (20.5-60.0) % [place] % (Auto) 5.9 (1.7-12.0) % Eos % (Auto) 0.1 L (0.9-7.0) % Baso % (Auto) 0.4 (0.2-2.0) % Neut # (Auto) 5.7 (1.4-6.5) 10^3/uL Lymph # (Auto) 2.0 (1.2-3.8) 10^3/uL [place] # (Auto) 0.5 (0.3-0.8) 10^3/uL Eos # (Auto) 0.0 (0.0-0.7) 10^3/uL Baso # (Auto) 0.0 (0.0-0.1) 10^3/uL Abs Immat Gran (auto) 0.03 (0.00-0.03) 10^3/uL Imm/Tot Granulo (auto) 0.4 (0.0-0.5) % Sodium 140 (136-145) mmol/L Potassium 3.8 (3.5-5.1) mmol/L Chloride 105 (98-107) mmol/L Carbon Dioxide 25.8 (21.0-32.0) mmol/L Anion Gap 13.0 BUN 8.0 (7.0-18.0) mg/dL Creatinine 0.55 (0.55-1.02) mg/dL Est GFR ( Amer) >60 (>=60 mL/min/1.73m^2) Est GFR (Non-Af Amer) >60 (>=60 mL/min/1.73m^2) BUN/Creatinine Ratio 14.5 Glucose 100 (74-106) mg/dL Calcium 8.5 (8.5-10.1) mg/dL Total Bilirubin 0.2 (0.2-1.0) mg/dL AST 22 (15-37) U/L ALT 36 (14-59) U/L Alkaline Phosphatase 67 (46-116) U/L Total Protein 7.9 (6.4-8.2) g/dL Albumin 3.9 (3.4-5.0) g/dL Globulin 4.0 g/dL Albumin/Globulin Ratio 1.0 Lipase 29.0 (16.0-77.0) U/L Discharge Plan Discharge Patient Disposition: Still a Patient
[2025-03-19] MEDS: MORPHINE SULFATE 4 MG/ML VIAL IV ×3 (15:57→19:45)
[2025-03-19 16:00] VITALS: PULSE 88; O2SAT 99
--- NOTE | 2025-03-19 16:45 | PC.NURSE ---
pt states her pain is not much better after Morphine -- pain went from a 9 to an [address] out [address] guajardo. no nausea at this time
== END 2025-03-19 20:45 | disposition short-term general hospital (02) ==
PROVIDERS: Emergency Medicine; Emergency Provider Internal Medicine
DX: N83.201 Unspecified ovarian cyst, right side (principal); Z90.711 Acquired absence of uterus with remaining cervical stump
CPT/HCPCS: 36415; 74176; 76830; 80053; 83690; 85025; 96374; 96375; 96376; 99285; J1885; J2270; J2405

== ENCOUNTER 2025-03-23 15:51 | Emergency (ER) | payer OTHER, SELFPAY ==
[2025-03-23] VITALS (14 sets, daily range): BP systolic 128–156; BP diastolic 72–101; PULSE 88–117; TEMP 37.2; O2SAT 72–98; BMI 31.8
--- OUTSIDE RECORDS SUMMARY | 2025-03-23 15:58 | XMS_ITS | Clinical Summary ---
Author Organization [facility] Address [address] [place] [address] Care Team Providers Care Director Of Payroll Name Role Phone Self, Referred Primary Care [...] topic Insurance [employer] [place] Care Teams Director Of Payroll Relationship Specialty Start Date End Date SELF, REFERRED [address] PCP - General 01/13/24
--- OUTSIDE RECORDS SUMMARY | 2025-03-23 15:58 | XMS_ITS | Encounter Summary ---
Author Organization [employer] s tem Address [facility]-[id number] [address] [place] [address] Care Team Providers Care Lime Mixer Name Role Phone No Pcp, No Pcp Primary Care Provider Unavailabl e Encounter Details Date Type Department Care Team (Late st Contact Info) Description 01/14/2024 Telephone [facility] [address] [place] [address] Daiana Guerin Social History Tobacco Use Types Packs/Day Years Used Date Smoking Tobacco: Former Cigarettes Smokeless Tobacco: Never Comments:Down to 2-3 cig/day with Alcohol Use Standard Drinks/Week Comments Never 0 (1 standard drink = 0.6 oz pur e alcohol) [facility] Utilities Answer Date Recorded In the past 12 months has e [employer], gas, oil, or water [employer] threatened to shut off services in your [...] Daiana Guerin - 01/14/2024 8:46 AM EDT [id number] pELVIC aBCESS documented in this encounter Plan [...] documented as of this encounter Care Teams Lime Mixer Relationship Specialty Start Date End Date No Pcp, [place] [address] PCP - General Family Medicine 09/16/24 documented as of this encounter
--- OUTSIDE RECORDS SUMMARY | 2025-03-23 15:58 | XMS_ITS | Clinical Summary ---
Author Organization nat[employer] tem Address [facility] [place][id number] [address] [place] [address] Care Team Providers Care Cytopathology Technologist Name Role Phone No Pcp, No Pcp Primary Care Provider Unavailabl e Allergies Active Allergy Reactions Criticality Noted Date Comments Poqvdmrehhkge-Ya-Roqricrgdwscp Anaphylaxis High 07/2016 Throat Swells Medications acetaminophen [...] drink = 0.6 oz pur e alcohol) [facility] Utilities Answer Date Recorded In the past [...] EST [facility] [address] [place] [address] Gynecologic Cytology Consultation Patient Name: BARBRA CLAROS : 1995 (Age: 24) Gender: F Taken: 05/19/2020 Reported: 05/21/2020 Physician(s): FREDRICK Ramachandran [phone]) Copy To: Med. Rec. #: [id number] Acct: # [id number] Final Cytologic Interpretation ThinPrep Pap Test (Cervical): Satisfactory for evaluation. A transformation zone component was not noted. The lack of a transformation zone component in a patient is not unusual. NEGATIVE FOR INTRAEPITHELIAL LESION OR MALIGNANCY. jja05/21/2020 Interpretation performed at [facility], [address] [place] [address], License number: [id number]. Electronically Signed Out By EUGENE Lao(ASCP) Date of Last Menstrual Period: (None Given) Other Clinical Conditions: Z3A.01 Less than 8 weeks gestation of Source of Specimen ThinPrep Pap Test (Cervical) Thin Prep Pap (MANAGER STATE) Fee Code(s): G0145 The Pap test is a screening test with an inherent, but low, probability of error. The Pap test is primarily effective for the diagnosis and prevention of squamous cell carcinoma. Regular screening is critical for prevention. ThinPrep liquid-based slides, which meet the Assembler Finger Buffs criteria for automated screening, have been screened by the ProvenderPrep Imaging System (as of 03/05/07) along with an additional manual rescreening by a water/wastewater engineer and, if indicated, by a pathologist. Tonie Balbuena DIGITAL MARKETING ASSOCIATE-ELECTRICAL TRANSMISSION ENGINEER PATHOLOGY/CYTOLOGY ORDER PATRICE Final Result COPATH from Last 3 Months or Most Recently Relevant to Health Maintenance Insurance [address] [place] [address] [employer]ICA[employer] Advance Directives * Full Code (Latest Code Status on File) Date Activated Date Inactivated Comments 11/27/2020 2:29 AM 11/30/2020 7:03 PM Care Teams Cytopathology Technologist Relationship Specialty Start Date End Date No Pcp, [place] [address] PCP - General Family Medicine 09/16/24
--- OUTSIDE RECORDS SUMMARY | 2025-03-23 15:58 | XMS_ITS | Encounter Summary ---
Author Organization [employer] tem Address [id number] [address] [place] [address] Care Team Providers Care Couture Dressmaker Name Role Phone No Pcp, No Pcp Primary Care Provider Unavailabl e Reason for Referral * Diagnostic Imaging (Routine) - Closed Specialty Diagnoses / Procedures Referred By Contac t Referred To Contact Radiology Diagnoses Acute chest pain Procedures CT chest with contrast [facility] [address] [place] [phone] Phone: tel: fax: Referral ID Status Reason Start Date Expiration Date Visits Re quested Visits Authorized [id number] Closed 01/14/2024 01/13/2025 1 1 * Diagnostic Imaging (Routine) - Closed Specialty Diagnoses / Procedures Referred By Contac t Referred To Contact Radiology Diagnoses Pain Procedures CT abdomen and pelvis with contrast [facility] [address] [place] [phone] Phone: tel: fax: Referral ID Status Reason Start Date Expiration Date Visits Re quested Visits Authorized [id number] Closed 01/14/2024 01/13/2025 1 1 Encounter Details Date Type Department Care Team (Late st Contact Info) Description 01/14/2024 Orders Only [facility] [place] [address] Transcribe, Orders Support User Pain (Primary Dx); Acute chest pain Social History Tobacco Use Types Packs/Day Years Used Date Smoking Tobacco: Former Cigarettes Smokeless Tobacco: Never Comments:Down to 2-3 cig/day with Alcohol Use Standard Drinks/Week Comments Never 0 (1 standard drink = 0.6 oz pur e alcohol) [facility] Utilities Answer Date Recorded In the past 12 months has th e [employer], gas, oil, or water company threatened to [...] documented as of this encounter Care Teams Couture Dressmaker Relationship Specialty Start Date End Date No Pcp, [place] [address] PCP - General Family Medicine 09/16/24 documented as of this encounter
--- OUTSIDE RECORDS SUMMARY | 2025-03-23 15:58 | XMS_ITS | Encounter Summary ---
Author Organization [facility] tem Address [facility] [place][id number] [address] [place] [address] Care Team Providers Care Gas Singer Name Role Phone No Pcp, No Pcp Primary Care Provider Unavailabl e Encounter Details Date Type Department Care Team (Late st Contact Info) Description 08/28/2023 Orders Only [facility] [address] [place] [address] [address] [place] [phone] External, Scanning Provider Social History Tobacco Use [...] documented as of this encounter Care Teams Gas Singer Relationship Specialty Start Date End Date No Pcp, [place] [address] PCP - General Family Medicine 09/16/24 documented as of this encounter
--- OUTSIDE RECORDS SUMMARY | 2025-03-23 15:58 | XMS_ITS | Encounter Summary ---
Author Organization [facility] [facility] Address [id number] [address] [place] [address] Care Team Providers Care Guest Services Coordinator Name Role Phone No Pcp, No Pcp Primary Care Provider Unavailabl e Encounter Details Date Type Department Care Team ([facility] st Contact Info) Description 09/18/2020 Telephone [facility] [address] [place] [phone] Heather Brush, AIRLINE ATTENDANT-CNM [address] [phone] Social History Tobacco Use Types Packs/Day Years [...] have Coronavirus / COVID-19? No / Unsure 09/21/2020 4:50 PM EDT documented as of this encounter Miscellaneous Notes * Telephone Encounter - AMNA Fletcher - 09/18/2020 5:42 PM EDT I called the patient and notified her that vaginitis DNA probe was negative. I explained to her that this indicates she does not have yeast BV or Trichomonas and on 09/15 her urine culture was negative so she does not have a bladder infection. At this time I do recommend that she follow up in the office next Monday if she is not feeling any better, or go to the emergency room this weekend. The patient was gracious and thanked me, she will follow-up as she feels appropriate. documented in this encounter Plan of Treatment Not on file documented as of this encounter Visit Diagnoses Not on filedocumented in this encounter Care Teams Guest Services Coordinator Relationship Specialty Start Date End Date No Pcp, No Pcp DAISHA [place] [address] PCP - General Family Medicine 09/16/24 documented as of this encounter
--- OUTSIDE RECORDS SUMMARY | 2025-03-23 15:58 | XMS_ITS | Encounter Summary ---
Author Organization [employer] Address [facility] [place][id number] [address] [place] [address] Care Team Providers Care Cyber Intelligence Analyst Name Role Phone No Pcp, No Pcp Primary Care Provider Unavailabl e Encounter Details Date Type Department Care Team (Late st Contact Info) Description 05/20/2020 Telephone [facility] [address] [place] [phone] Roxanne Green, CPT Social History Tobacco Use [...] on filedocumented in this encounter Care Teams Cyber Intelligence Analyst Relationship Specialty Start Date End Date No Pcp, No Pcp DAISHA [place] [address] PCP - General Family Medicine 09/16/24 documented as of this encounter
--- OUTSIDE RECORDS SUMMARY | 2025-03-23 15:58 | XMS_ITS | Encounter Summary ---
Author Organization [employer] Address [facility] [place][id number] [address] [place] [address] Care Team Providers Care Stogy Roller Name Role Phone No Pcp, No Pcp Primary Care Provider Unavailabl e Reason for Visit * Reason Onset Date Comments Transition Of Care 01/18/2024 Encounter Details Date Type Department Care Team (Late st Contact Info) Description 01/18/2024 [facility] [address] [place] [address] [address] Fe James RN Transition Of Care Social History Tobacco Use Types Packs/Day Years Used Date Smoking Tobacco: Former Cigarettes Smokeless Tobacco: Never Comments:Down to 2-3 cig/day with Alcohol Use Standard Drinks/Week Comments Never 0 (1 standard drink = 0.6 oz pur e alcohol) [facility] Utilities Answer Date Recorded In the past 12 months has [employer], gas, oil, or water [employer] threatened to shut off services in your [...] Specialty: Infectious Disease Name of Discharging Facility: [facility] Date of Facility Discharge: 01.13.24-01.17.24 Date of Interactive Contact and Name of Gastroenterology Manager: 01.18.24 1330 Spoke with the patient. Medication Review Completed: No -We discussed the new medications that were ordered at discharge. She declines to review her complete medication list. She has no questions about her medications at this time. Follow Up Appointments with Providers: Primary: MELIDA OVALLE APRN-PICKLING GRADER TBD Specialty: OB-Produce Buyer TBD Review of Pending Lab/Diagnostic Tests and [...] documented as of this encounter Care Teams Stogy Roller Relationship Specialty Start Date End Date No Pcp, [place] [address] PCP - General Family Medicine 09/16/24 documented as of this encounter
--- OUTSIDE RECORDS SUMMARY | 2025-03-23 15:58 | XMS_ITS | Encounter Summary ---
Author Organization [email or web address] Address [facility] [place]-[id number] [address] [place] [address] Care Team Providers Care Visual Merchandising Associate Name Role Phone No Pcp, No Pcp [...] with or without consult Chris Cobian MD [address] [place] [address] 12/18/2023 [place] [address] Phone: tel: fax: Maternal- Medicine at [address] [address] Phone: tel: fax: Referral ID Status Reason Start Date Expiration Date Visits Re quested Visits Authorized [id number] Closed 09/16/2020 09/16/2021 1 1 Encounter Details Date Type Department Care Team (Late st Contact Info) Description 09/16/2020 Orders Only [facility] at [address] [address] Chris Cobian MD [address] [facility] [place] [address] Obesity affecting in second trimester (Primary Dx); [...] as of this encounter Results * [facility] OB FOLLOW-UP, 1 FETUS (09/24/2020 11:06 AM [...] Final 09/24/2020 12:58) PATIENT INFO: ID #: [id number] : [birth year] (25 yrs)(F) Name: BARBRA YANCEY Visit Date: 09/24/2020 10:49 HYACINTH PERFORMED BY: Performed By: Jordyn La RDMS Attending: Lucien Coronado MD Referred By: [facility] Ref. Address: [address] [place] [address] Location: [facility] SERVICE(S) PROVIDED: OB Follow-up, 1 fetus [id number] INDICATIONS: Screening for follow-up survey Z36.2 Obesity [...] Arch: Previously seen SVC: Previously seen Cardiac [place]: Appears normal Diaphragm: Appears normal 3 Vessel [...] Final 09/24/2020 12:58) PATIENT INFO: ID #: [id number] : [birth year] (25 yrs)(F) Name: BARBRA YANCEY Visit Date: 09/24/2020 10:49 HYACINTH PERFORMED BY: Performed By: Jordyn La RDMS Attending: Lucien Coronado MD Referred By: [facility] Ref. Address: [address] [place] [address] Location: [facility] SERVICE(S) PROVIDED: OB Follow-up, 1 fetus [id number] INDICATIONS: Screening for follow-up survey Z36.2 Obesity [...] Arch: Previously seen SVC: Previously seen Cardiac [place]: Appears normal Diaphragm: Appears normal 3 Vessel [...] assessment is normal. us Chris Cobian MD [facility] ORDERABLES Final Result documented in this encounter Visit Diagnoses Diagnosis Obesity affecting in second trimester- Primary Tobacco smoking affecting in second trimester History of marijuana use History of migraine during Supervision of other high-risk Hx of shoulder dystocia in prior , currently documented in this encounter Care Teams Visual Merchandising Associate Relationship Specialty Start Date End Date No Pcp, [place] [address] PCP - General Family Medicine 09/16/24 documented as of this encounter
--- OUTSIDE RECORDS SUMMARY | 2025-03-23 15:58 | XMS_ITS | Encounter Summary ---
Author Organization [employer] Address [facility] [place]-[id number] [address] [place] [address] Care Team Providers Care Bottle Capping Machine Operator Name Role Phone No Pcp, No Pcp Primary Care Provider Unavailabl e Reason for Visit * Reason Onset Date Comments Phone Encounter 07/02/2020 Encounter Details Date Type Department Care Team (Late st Contact Info) Description 07/02/2020 Telephone [facility] [address] [place] [address] Tonie Balbuena, HEATER ROOM HELPER-LMSW [address] [place] [address] Phone Encounter Social History Tobacco Use Types [...] on filedocumented in this encounter Care Teams Bottle Capping Machine Operator Relationship Specialty Start Date End Date No Pcp, [place] [address] PCP - General Family Medicine 09/16/24 documented as of this encounter
--- OUTSIDE RECORDS SUMMARY | 2025-03-23 15:58 | XMS_ITS | Encounter Summary ---
Author Organization [facility] tem Address [facility][id number] [address] [place] [address] Care Team Providers Care Belting And Webbing Inspector Name Role Phone No Pcp, No Pcp Primary Care Provider Unavailabl e Encounter Details Date Type Department Care Team (Late st Contact Info) Description 09/22/2020 Orders Only [facility] [address] [place] [phone] Morelia Vivar, HENNA Social History Tobacco Use [...] on filedocumented in this encounter Care Teams Belting And Webbing Inspector Relationship Specialty Start Date End Date No Pcp, [place] [address] PCP - General Family Medicine 09/16/24 documented as of this encounter
--- OUTSIDE RECORDS SUMMARY | 2025-03-23 16:00 | XMS_ITS | CCD ---
Author Organization [facility] [place] Care Team Providers Care Doughnut Icer Name Role Phone MarthaSylvian Unavailable Hernan Salas Unavailable [phone] NO FAMILY, PHYSICIAN Primary Care Provider Unava ilable Nataprawira, DO Juany Attending Provider Visci, DO Jonathan Attending Provider [phone] NO FAMILY, PHYSICIAN Primary Care Provider Unava ilable Nataprawira, DO Juany Attending Provider MD Michael Gurrola Attending Provider [phone] MD Michael Gurrola Primary Care Provider [phone] MD Melinda Beltre P Attending Provider NO FAMILY, PHYSICIAN Primary Care Provider Unava ilable Visci, DO Jonathan Attending Provider [phone] Visci, DO Jonathan Admit Provider MD Michael Gurrola Attending Provider NO FAMILY, PHYSICIAN Primary Care Provider Unava ilable MD Michael Gurrola Primary Care Provider MD Melinda Beltre P Attending Provider Nataprjerad, DO Juany Attending Provider Visci, DO Jonathan Admit Provider Visci, DO Jonathan Attending Provider Melida Mckenna APRN, CNP Primary Care Pro vider MELIDA HUANG Primary Care Unavailable KISHA RANGEL Attending Unavailable KISHA RANGEL Admitting Unavailable Provider, None Primary Care Unavailable Michael Gurrola Admitting Unavailable Michael Gurrola Attending Unavailable Provider, None Primary Care Unavailable Stalter, Ajnel Admitting Unavailable Stalter, Anjel Attending Unavailable Stalter, [...] Provider Unava ilable HATTIE Quiñones Emergency Provider [phone] YAIR DAVENPORT Referring Unavailable DIVINE COLEMAN Referring Unavailable DIVINE COLEMAN Attending Unavailable REINA, MELIDA A Referring Unavailable REINA, MELIDA A Primary Care Unavailable REINA, MELIDA A Referring Unavailable REINA, MELIDA A Primary Care Unavailable Reina AIRPORT OPERATIONS COORDINATOR - DECK ENGINEER, Melida A Primary Care Pro vider REINA, [...] Care Provi lala Michael Gurrola MD Unavailable [phone] PRUDENCE WONG Attending Unavailable REINA, MELIDA A Primary Care Unavailable REINA, MELIDA A Primary Care Unavailable TYRONE BENITO Attending Unavailable SAGE FARIAS Attending Unavailable REINA, MELIDA A Primary Care Unavailable SHEREEN GIRALDO Attending Unavailable REINA, MELIDA A Primary Care Unavailable JESS DAIGLE Attending Unavailable REINA, MELIDA A Primary Care Unavailable REINA, MELIDA A Primary Care Unavailable NICOLETTE WYMAN Admitting Unavailable NATE WYMANFAN Attending Unavailable CRISTIANO SINGH Consulting Unavailable [place] [...] Care Unavailable TYRONE BENITO Attending Unavailable Reina AIRPORT OPERATIONS COORDINATOR-DECK ENGINEER, Melida A Primary Care Provi lala No Pcp, No Pcp Primary Care Provider Unavailabl e NO PCP, NO PCP Primary Care Unavailable SHIRLEY BRICE Attending Unavailable PRINTYMICHAEL Attending Unavailable PRINTYMICHAEL Attending Unavailable PRINTYMICHAEL Attending Unavailable PRINTYMICHAEL Attending Unavailable PRINTYMICHAEL Attending Unavailable PRINTYMICHAEL Attending Unavailable NO FAMILY, PHYSICIAN Primary Care Provider Unava ilable Duane Simons DO A Emergency Provider Kit Gutierrez MD Admit Provider Kit Gutierrez MD Attending Provider Ameya Salguero DO Emergency Provider Josh CLEARY, Dashawn Admit Provider [phone] Dashawn Moreno MD Attending Provider Vik Gunter MD Attending Provider Kit Gutierrez MD Other Provider Dashawn Moreno MD Other Provider [phone] Garo CLEARY, Aism Luciano Emergency Provider Onel CLEARY, Norah Maldonado Emergency Provider Kit Gutierrez MD Other Provider Nancy Fe PICHARDO Attending Provider NO FAMILY, PHYSICIAN Primary Care Provider Unava ilable Kit Gutierrez MD Admit Provider Kit Gutierrez MD Attending Provider Duane Simons DO Emergency Provider Fe Cruz Admitting Unavailable Fe Cruz Attending Unavailable NO FAMILY, PHYSICIAN Primary Care Unavailable Matt, Kit Admitting Unavailab le Merissa Gutierrezrahman Attending Unavailab le NO FAMILY, PHYSICIAN Primary Care Unavailable Josh, Dashawn Admitting Unavailable Josh Dashawn Attending Unavailable Matt, Kit Admitting Unavailab le Matt, Kit Attending Unavailab le NO FAMILY, PHYSICIAN Primary Care Unavailable Matt, Kit Admitting Unavailab le Matt, Kit Attending Unavailab le NO FAMILY, PHYSICIAN Primary Care Unavailable NO FAMILY, PHYSICIAN Primary Care Unavailable Josh, Dashawn Admitting Unavailable Josh, Dashawn Attending Unavailable Vik Gunter Admitting Unavailable Vik Gunter Attending Unavailable NO FAMILY, PHYSICIAN Primary Care Provider Unava ilable Josh CLEARY, Dashawn Admit Provider [phone] Josh CLEARY, Dashawn Attending Provider [phone] Josh CLEARY, Dashawn Other Provider NON STAFF Primary Care Provider Unavailabl e NO FAMILY, PHYSICIAN Primary Care Provider Unava ilable Kit Gutierrez MD Admit Provider Kit Gutierrez MD Attending Provider Kit Gutierrez MD Other Provider Michael Gurrola MD Admit Provider Michael Gurrola MD Attending Provider [phone] Allergies Allergy Classification Reported Allergen(s) Allergy Type Date of Onset Reaction(s) Facility (20 sources) Chlorpheniramine Drug Allergy 06-21-19 23 Anaphylaxis, Other (See Comments), Other [facility] (20 sources) Dextromethorphan Drug Allergy 06-21-19 23 Other (See Comments), Other [facility] (20 sources) Pseudoephedrine Drug Allergy 06-21-19 23 Other (See Comments), Other [facility] (20 sources) Acetaminophen / Chlorpheniramine / Dextromethorphan Drug Allergy 11-19-19 Angioedema, Swelling, Anaphylaxis [facility] (1 source) Chlorpheniramine; Translations: [Triaminic Allergy] Drug Allergy [facility] (1 source) chlorpheniramine/dextr omethorphan/PSE; Translations: [chlorpheniramine/dext romethorphan/PSE] Propensity to adverse reactions to drug (disorder) [facility] Repository (15 sources) Chlorpheniramine / Phenylpropanolamine Drug Allergy 01-08-[address] [facility] (1 source) OTHER; Translations: [OTHER] Propensity to adverse reactions (disorder) 01-13-[address] [facility] Repository (3 sources) [id number] MINOPHEN; Translations: [[id number] AMINOPHEN] Propensity to adverse reactions to drug (disorder) 11-19-19 [facility] Repository NEGATED: Highlighted row has been ruled out! (7 sources) Other Propensity to adverse reactions 01-13-20 24 Other (See Comments) [facility] Medications Current Medications Medication Drug [...] 4 tablets 10 tablet 04/02/2024 04/05/2024 Active [id number] 200 actuat albuterol 0.09 mg/actuat metered dose [...] 60 mL 0 08/15/2023 Active busPIRone hydrochloride 15 mg oral tablet (20 sources) Start: 01-22-2025 take 1 tablet by mouth three times daily Buspirone 15 mg tablet Active 15 MG PO Three times daily January 22, 2025 12:00am Complies with drug therapy Start: 12-29-2024 End: 01-22-2025 Buspirone 10 mg tablet Disco ntinued 15 MG PO Three times daily December 29, 2024 12:00am January 22, 2025 5:59pm Start: 11-16-2024 End: 12-29-2024 take 1 tablet by mouth twice daily Buspirone 10 mg tablet Discontinued 10 MG PO Twice daily November 16, 2024 12:00am December 29, 2024 11:45pm Start: 11-10-2024 End: 11-16-2024 take 1 tablet by mouth twice daily Buspirone 5 mg Tablet Discontinued 5 MG PO Twice daily November 10, 2024 12:00am November 16, 2024 12:51pm calcium chloride 0.0014 meq/ml / potassium chloride 0.004 meq/ml / sodium chloride 0.103 meq/ml / sodium lactate 0.028 meq/ml injectable solution (1 source) Start: 11-20-2023 lactated ringe rs IV soln infusion cariprazine 4.5 mg oral capsule (13 sources) Atypical Antipsychotic Start: 01-24-2025 take 1 capsule by mouth once daily Cariprazine (Vraylar) 4.5 mg capsule Active 4.5 MG PO Daily January 24, 2025 12:00am Complies with drug therapy Start: 12-04-2024 End: 01-24-2025 take 1 capsule by mouth once daily Cariprazine (Vraylar) 3 mg capsule Discontinued 3 MG PO Daily December 04, 2024 12:00am January 24, 2025 10:15am docusate sodium 100 mg oral capsule (2 [...] Oral, 3 TIMES DAILY, First dose on Mon04/13/24 at 0900, Until Discontinued homatropine methylbromide 0.3 [...] mLs 140 mL 0 08/15/2023 08/22/2023 Active HYDROmorphone hydrochloride 2 mg oral tablet (2 sources) Opioid Agonist Start: 03-20-2025 take 1 tablet by mouth every six hours as needed for pain Start: 02-07-2024 End: 02-07-2024 take 1 dose by mouth every hour 1 mg, IntraVENous, ONCE, 1 dose, On Mon02/07/24 at 1430, If oral and IV narcotics ordered, use oral first and only use IV if oral is ineffective or cannot take oral. Do Not give oral and IV within 1 hour of each other unless specifically ordered. hydrOXYzine pamoate 50 mg oral capsule (20 sources) Antihistamine Start: 02-08-2025 take 1 capsule by mouth three times daily as needed for anxiety Hydroxyzine Pamoate 50 mg capsule Active 50 MG PO Three times daily as needed for anxiety February 08, 2025 12:00am Complies with drug therapy Start: 12-29-2024 End: 12-30-2024 take 1 capsule by mouth every six hours as needed for anxiety Hydroxyzine Pamoate 25 mg capsule Discontinued 25 MG PO Every 6 hours as needed for anxiety December 29, 2024 12:00am December 30, 2024 5:54am Start: 11-10-2024 End: 11-14-2024 take 1 capsule by mouth every six hours as needed for anxiety Hydroxyzine Pamoate 50 mg Capsule Discontinued 50 MG PO Q6H as needed for Anxiety 30 November 10, 2024 12:00am November 14, 2024 10:12pm Start: 11-07-2024 End: 12-30-2024 take 1 tablet by mouth every six hours Hydroxyzine Hcl 50 mg tablet Discontinued 50 MG PO Every 6 hours November 07, 2024 12:00am December 30, 2024 5:54am Start: 11-01-2024 take 1 tablet by kristel th three times daily Hydroxyzine Hcl 50 mg tablet Active 50 MG PO Three times daily November 07, 2024 12:00am ibuprofen 600 mg oral tablet (20 sources) Nonsteroidal Anti-inflammatory Drug Start: 03-20-2025 take 1 tablet by mouth every six hours as needed for pain Start: 02-26-2023 End: 11-07-2024 take 4 tablets [...] previously). Concentration 0.04 mg/mL PACU only nystatin [id number] unt/ml topical cream (6 sources) Polyene Antifungal Start: 01-05-2022 nystatin (MYCOSTATIN) cream Indications: Thrush Apply 1 application topically in the morning and 1 application before bedtime. 30 g 01/05/2022 Active ondansetron (ZOFRAN-ODT) disintegrating tablet 4 mg (1 source) Start: 04-11-2024 ondansetron (ZOFRAN-ODT) disintegrating tablet 4 mg OXcarbazepine 300 mg oral tablet (17 sources) Anti-epileptic Agent Start: 02-24-2025 Oxcarbazepine 300 mg tablet Active 450 MG PO Daily February 24, 2025 12:00am Complies with drug therapy Start: 02-24-2025 Oxcarbazepine 300 mg tablet Active MG PO February 24, 2025 12:00am Complies with drug therapy Start: 12-31-2024 End: 02-24-2025 take 3 tablets by mouth once daily at bedtime Oxcarbazepine 150 mg Tablet Discontinued 450 MG PO Daily at bedtime 45 December 31, 2024 12:00am February 24, 2025 10:13am Start: 12-06-2024 End: 01-01-2025 take 1 tablet by mouth once daily at bedtime Oxcarbazepine 300 mg Tablet Discontinued 300 MG PO Daily at bedtime December 06, 2024 12:00am January 01, 2025 10:40am oxyCODONE hydrochloride 5 mg oral tablet (2 [...] every morning 0 Active polyethylene glycol 3350 35030 mg powder for oral solution (1 source) [...] tablet 0 11/20/2023 11/23/2023 Active traZODone hydrochloride 150 mg oral tablet (20 sources) Serotonin Reuptake Inhibitor Start: 01-22-2025 take 1 tablet by mouth at bedtime Trazodone 150 mg tablet Active 150 MG PO Bedtime January 22, 2025 12:00am Complies with drug therapy Start: 12-29-2024 End: 01-22-2025 Trazodone 100 mg tablet Disc ontinued 150 MG PO Daily at bedtime as needed for insomnia December 29, 2024 12:00am January 22, 2025 6:00pm Start: 11-16-2024 End: 12-29-2024 take 1 tablet by mouth once daily at bedtime as needed Trazodone 100 mg tablet Discontinued 100 MG PO Daily at bedtime as needed for insomnia November 16, 2024 12:00am December 29, 2024 11:30pm Start: 11-10-2024 End: 11-16-2024 take 1 tablet by mouth once daily at bedtime as needed Trazodone 50 mg Tablet Discontinued 50 MG PO Daily at bedtime as needed for Insomnia November 10, 2024 12:00am November 16, 2024 12:51pm 24 hr venlafaxine 37.5 mg extended release oral capsule (20 sources) Serotonin and Norepinephrine Reuptake Inhibitor Start: 12-06-2024 take 1 tablet by mouth once daily Venlafaxine 37.5 mg capsule,extended release 24hr Active 37.5 MG PO Daily December 06, 2024 12:00am Take 1 tab with a 150mg tab. Complies with drug therapy Start: 11-16-2024 End: 12-06-2024 take 1 tablet by mouth once daily Venlafaxine 150 mg capsule,extended release 24hr Active 150 MG PO Daily December 06, 2024 12:00am Take 1 tab daily with a 37.5mg tab. Total 187.5mg daily Complies with drug therapy Start: 11-10-2024 End: 11-16-2024 take 1 capsule by mouth once daily in the morning Venlafaxine 37.5 mg Capsule,Extended Release 24hr Discontinued 112.5 MG PO Every morning November 10, 2024 12:00am November 16, 2024 12:51pm Start: 07-22-2024 take 1 capsule by [facility] every twenty-four hours Venlafaxine 75 mg capsule,extended release 24hr Active MG PO July 22, 2024 12:00am Start: 07-22-2024 End: 11-10-2024 take 1 capsule by mouth once daily in the morning Venlafaxine 75 mg capsule,extended release 24hr Discontinued 75 MG PO Every morning July 22, 2024 1:00am November 10, 2024 7:31am Start: 04-17-2024 take 1 capsule by [facility] once daily at breakfast venlafaxine (EFFEXOR XR) 75 MG extended release capsule Take 1 capsule by mouth daily (with breakfast) 30 capsule 3 04/17/2024 Active Start: 10-27-2024 take 75 mg by mouth once daily [...] r Rapid Release) 500 mg Tablet Discontinued November 03, 2022 12:00am January 26, 2023 10:37pm Start: 11-03-2022 End: 01-26-2023 Acetaminophen (Tylenol Ex [...] / HYDROcodone bitartrate 5 mg oral tablet (18 sources) Opioid Agonist Start: 01-08-2024 End: 07-22-2024 [...] 04/14/24 at 0610, Until Discontinued, Anxiety amoxicillin 500 mg oral capsule (1 source) Penicillin-class Antibacterial Start: 02-24-2025 End: 03-20-2025 take 1 capsule by mouth twice daily Amoxicillin 500 mg capsule Discontinued 500 MG PO Twice daily 07 04February 24, 2025 12:00am March 20, 2025 7:59am amoxicillin 875 mg / clavulanate 125 mg oral tablet (6 sources) Penicillin-class Antibacterial Start: 01-04-2022 End: 02-15-2024 take 1 tablet by mouth once daily amoxicillin-pot clavulanate (AUGMENTIN) 875-125 mg per tablet Take 1 tablet by mouth once daily. For 10 days, pt never took 01/04/2022 02/15/2024 Discontinued (Therapy completed) ARIPiprazole 10 mg oral tablet (10 sources) Atypical Antipsychotic Start: 11-16-2024 End: 12-06-2024 take 1 tablet by mouth once daily at bedtime Aripiprazole 10 mg Tablet Discontinued 10 MG PO Daily at bedtime November 16, 2024 12:00am December 06, 2024 11:47am benzonatate 100 mg oral capsule (1 source) [...] only ferrous sulfate 325 mg oral tablet (17 sources) Start: 02-26-2023 End: 11-07-2024 take 1 tablet by mouth once daily Ferrous Sulfate 325 mg (65 mg iron) tablet Discontinued 325 MG PO Daily February 26, 2023 12:00am November 07, 2024 12:12am fluconazole 100 mg oral tablet (19 sources) Azole Antifungal Start: 01-12-2024 End: 07-22-2024 [...] since Mon04/15/2024 at 0621 until manually unheld iopamidol (ISOVUE-370) 76 % injection 75 mL [...] 1.25 mg LORazepam 0.5 mg oral tablet (20 sources) Benzodiazepine Start: 06-21-2022 End: 11-03-2022 take [...] dose, Starting on 11/20/23 at 1611, Until Tu11/21/23 at 1611, Nausea Initial antiemetic therapy. PACU [...] hour of each other unless specifically ordered. 24 hr nicotine 0.583 mg/hr transdermal system (15 sources) Cholinergic Nicotinic Agonist Start: 01-24-2025 End: 02-08-2025 apply 1 dose transdermal route every twenty-four hours Nicotine 14 mg/24 hr Patch 24 Hour Discontinued 14 MG TRANSDERML Daily January 24, 2025 12:00am February 08, 2025 2:18pm Start: 11-16-2024 End: 12-03-2024 apply 1 dose transdermal route every twenty-four hours Nicotine 21 mg/24 hr Patch 24 Hour Discontinued 21 MG TRANSDERML Daily November 16, 2024 12:00am December 03, 2024 7:36pm NIFEdipine 30 mg osmotic 24 hr extended release oral tablet (20 sources) Dihydropyridine Calcium Channel Andrew Start: 11-14-2021 [...] 21, 2022 1:00am June 22, 2022 9:18am ondansetron 4 mg disintegrating oral tablet (20 sources) Serotonin-3 Receptor Antagonist Start: 11-10-2024 End: 12-29-2024 take 1 tablet by mouth every six hours as needed for nausea Ondansetron 4 mg Tablet,Disintegrating Discontinued 4 MG PO Every 6 hours as needed for Nausea November 10, 2024 12:00am December 29, 2024 11:38pm Start: 04-10-2024 End: 04-11-2024 4 mg, IntraVENous, [...] sodium chloride 0.9 % 50 mL IVPB ([id number]) (2 sources) Start: 04-11-2024 End: 04-12-2024 3,375 mg, IntraVENous, EVERY 8 HOURS, 4 doses, First dose on Mon04/11/24 at 0400, Last dose on Mon04/12/24 at [...] 40 mEq predniSONE 20 mg oral tablet (14 sources) Start: 07-22-2024 End: 11-07-2024 take 2 tablets by mouth once daily Prednisone 20 mg tablet Discontinued 40 MG PO Daily 6 July 22, 2024 1:00am November 07, 2024 12:12am Start: 08-15-2023 End: 08-20-2023 take 2 tablets by mouth once daily predniSONE (DELTASONE) 20 MG tablet Take 2 tablets by mouth daily for 5 days 10 tablet 0 08/15/2023 08/20/2023 Active Svvthpxz-Rzj-St-Fa () 1 mg Tablet (20 sources) Start: 11-03-2022 End: 01-26-2023 take 1 tablet by mouth once daily Rtgokbro-Tuj-Cz-Fa () 1 mg Tablet Discontinued 1 TAB PO Daily November 02, 2022 11:00pm January 26, 2023 9:37pm Start: 11-03-2022 End: 01-26-2023 take 1 tablet by mouth once daily Jvbwidsw-Dzc-Gs-Fa () 1 mg Tablet Discontinued 1 TAB PO Daily November 03, 2022 12:00am January 26, 2023 10:37pm Start: 11-03-2022 take 1 tablet by kristel once daily Ntvkzyuo-Igz-Gh-Fa () 1 mg Tablet Active 1 TAB [...] only promethazine hydrochloride 25 mg oral tablet (20 sources) Phenothiazine Start: 11-24-2018 End: 10-16-2020 take [...] on Mariajose 04/11/24 at 0900, Until Discontinued Start: 04-11-2024 Start: 04-10-2024 End: 04-12-2024 IntraVENous, at 100 mL/hr, CONTINUOUS, Starting on Mariajose 04/11/24 at 0200, For 24 hours, Complete last [...] abdominal pain; Translations: [Pain in pelvis] Onset: 4 Episodic Anxiety disorders (2 sources) Anxiety; Translations: [Anxiety disorder, unspecified] Onset: 4 04-14-2024 Chronic Attention-deficit, conduct, and disruptive behavior disorders (14 sources) Attention deficit hyperactivity disorder; Translations: [Attention-deficit hyperactivity disorder, unspecified type] 07-22-2024 Chronic Disorders of teeth and jaw (16 sources) Toothache; Translations: [Other specified disorders of teeth and supporting structures] 12-29-2024 Episodic Diverticulosis and diverticulitis (2 sources) Gastrointestinal perforation; Translations: [Diverticulitis of intestine, part unspecified, with perforation and abscess without bleeding] Onset: 4 04-10-2024 Chronic Endometriosis (1 source) Uterine adenomyosis; Translations: [Adenomyosis] 11-20-2023 Chronic Esophageal disorders (2 sources) Gastroesophageal reflux disease; Translations: [Gastro-esophageal reflux disease without esophagitis] Onset: 4 07-25-2023 Chronic Gastrointestinal hemorrhage (1 source) Melena Episodic Genitourinary symptoms and ill-defined conditions (1 source) Dysuria; Translations: [Dysuria] Onset: Episodic Immunizations and screening for infectious disease (3 sources) Contact with or exposure to other viral diseases; Translations: [Contact with and (suspected) exposure to covid-19] 07-22-2024 Episodic Impulse control disorders, NEC (15 sources) Homicidal thoughts; Translations: [Homicidal ideations] 12-03-2024 Episodic Menstrual disorders (2 sources) Menorrhagia; Translations: [Excessive and frequent menstruation with regular cycle] Onset: 4 11-20-2023 Chronic Mood disorders (20 sources) Severe recurrent major depression without psychotic features; Translations: [Major depressive disorder, recurrent severe without psychotic features] Onset: 5 11-06-2024 Chronic Mood disorders (7 sources) Mood disorders; Translations: [Depression, unspecified] Onset: 5 01-05-2022 Nausea and vomiting (20 sources) Nausea with vomiting, unspecified; Translations: [Nausea [...] 11-20-2023 Episodic Other and delivery including normal (19 sources) care status; Translations: [Encounter for routine follow-up] 02-27-2023 Episodic Comment on above: Problem List clean-u p per request of Phys. EHR Cmte Other upper respiratory infections (20 sources) Upper respiratory infection; Translations: [Acute upper respiratory infection, unspecified] Onset: 4 08-21-2019 Episodic Comment on above: Problem List clean-u p per request of Phys. EHR Cmte Ovarian cyst (9 sources) Cyst of right ovary; Translations: [Unspecified ovarian cyst, right side] Onset: 4 02-04-2024 Episodic Polyhydramnios and other problems of amniotic cavity [...] unspecified, without complications] Chronic Residual codes; unclassified (20 sources) Gestation period, 34 weeks; Translations: [34 weeks gestation of ] 11-26-2020 Episodic Comment on above: Problem List clean-u p per request of Phys. EHR Cmte Residual codes; unclassified (20 sources) Tobacco use and exposure - finding; Translations: [Tobacco use] 08-21-2019 Episodic Comment on above: Problem List clean-u p per request of Phys. EHR Cmte Residual codes; unclassified (1 source) Pain, unspecified; Translations: [Pain, unspecified] Onset: 4 Episodic Residual codes; unclassified (15 sources) Deliberate self-cutting; Translations: [Other problems related to lifestyle] 12-03-2024 Episodic Residual codes; unclassified (1 source) Other [...] 07-19-2023 Chronic Suicide and intentional self-inflicted injury (20 sources) Suicidal thoughts; Translations: [Suicidal ideations] Onset: 5 11-07-2024 Episodic Unclassified (1 source) Post-op Problem Onset: 4 Unclassified (1 source) EMS/// 26 yo F Onset: 4 Unclassified (1 source) Adenomyosis of the uterus; Translations: [Adenomyosis of the uterus] Onset: 4 Unclassified (7 sources) December 12 at 10am with Bottoming Room Inspector Mary Lou in [place] at 10am December 13 at 10:20am with nurse and 10:40am with Emani correa with [facility] Unclassified (20 sources) for any urgent medical needs Unclassified (10 sources) Go to urgent care for any urgent medical needs. Unclassified (6 sources) was referred at last admission You will receive a phone call Monday morning to set up follow up appointments. Unclassified (12 sources) merchandise planning manager will call you Monday between 8a and 5p, if you miss this phone call please call back as soon as possible. Unclassified (5 sources) merchandise planning manager will call you Monday. If you miss this call please call back as soon as possible. Unclassified (6 sources) was referred at last admission Unclassified (7 sources) 01/08/25 at 8:45am with nurse, [facility] January 10 at 11:30am with CPSMark Coates Unclassified (14 sources) Go to urgent care with any urgent medical issues. Unclassified (7 sources) merchandise planning manager will call you tomorrow between 8am & 5pm, if you miss this call please call back as soon as possible. Unclassified (5 sources) 01/28- 10am-11am team meeting 01/29- 8:45am with nurse; 9am with Emani Mcmillan Urinary tract infections (3 sources) Urinary tract infection, site not specified; Translations: [Urinary tract infectious disease] Onset: 5 02-24-2025 Episodic Viral infection (1 source) COVID-19; Translations: [COVID-19] [...] membrane ruled out] Onset: 09-21-2020 09-21-2020 Episodic Unclassified (11 sources) Spontaneous rupture of membranes; Translations: [Spontaneous rupture of amniotic membranes] 11-26-2020 Results Test Name Value Interpretation Reference Range Facility COVID CepheidOrdered By: Quin Cruz on 02-24-2025 SARS-CoV-2 (COVID-19) RNA MARICEL+probe Ql (Unsp spec) Negative [facility] No Panel InformationOrdered By: Fe Cruz on 02-24-2025 POC Influenza A (PCR) Negative [facility] POC Influenza B (PCR) Negative [facility] Laboratory - Chemistry and C hemistry - challengeOrdered By: Fe Cruz on 02-08-2025 Bilirubin Ql (U) Negative [facility] Glucose (U) [Mass/Vol] Negative [facility] Ketones Ql (U) Negative [facility] pH (U) 7.5 [pH] [facility] Specific gravity (U) [Rel density] 1.020 [facility] Urobilinogen (U) [Mass/Vol] 0.2 mg/dL [facility] Laboratory - Specimen inform ationOrdered By: Fe Cruz on 02-08-2025 Appearance (U) dark [facility] Color (U) yellow [facility] Laboratory - UrinalysisOrder ed By: Fe Cruz on 02-08-2025 Leukocyte esterase Test strip Ql (U) Negative [facility] Nitrite Ql (U) Negative [facility] Protein Ql (U) Negative [facility] No Panel InformationOrdered By: Fe Cruz on 02-08-2025 COVID Antigen (POC) [facility] Quick Strep (POC) [facility] Urine Occult Blood trace-intact [facility] Urine Cultureon 02-08-2025 Bacteria identified Cx Nom (U) ORGANISM: Strep agalactiae - (group b) (O:STRAGA) [place] Count 25,000 PERFORMED BY: [place] [address] PATHOLOGIST [employer]PER[employer] AMBER HENNING M.D. Normal [facility] Comment on above: Performed By: #### C UU #### [address] Urine cultureOrdered By: Quin Cruz on 02-08-2025 Bacteria identified Cx Nom (U) Strep agalactiae - (group b) Abnormal [facility] ECG 12 lead ECGon 01-23-2025 ECG 12 lead ECG [facility] [place] [address] [place] [address] Electrocardiograph Report Signed Patient: Barbra Claros MR#: [id number] : 1995 Acct:[id number] Age/Sex: 29 / F ADM Date: 01/22/25 Loc: Room: 6K7101-2 Type: ADM IN Attending Dr: Dashawn Moreno MD Ordering Provider: Dashawn Moreno MD Date of Service: 01/23/2501/10/500 ECG/ECG 12 lead ECG: Psych admit Copies to: Test Reason : Blood Pressure : */* mmHG Vent. Rate : 63 BPM Atrial Rate : 63 BPM P-R Int : 172 ms QRS Dur : 98 ms QT Int : 414 ms P-R-T Axes : 44 27 40 degrees QTcB Int : 423 ms Normal sinus rhythm Normal ECG Confirmed by Rhoda Herring ([id number]) on 01/23/2025 11:22:11 AM Referred By: Electronically Signed By: Rhoda Herring Transcribed By: MUS Signed By Rhoda Herring MD 5 [id number] Normal [facility] Alanine aminotransferase [En zymatic activity/volume] in Serum or PlasmaOrdered By: Duane Simons on 01-22-2025 ALT [Catalytic activity/Vol] 14 U/L Normal 7-52 [facility] Comment on above: Performed By: #### U HCG, URDS, ADDONUAPLUS #### [facility] [address] [place] [address] [place] Albumin [Mass/volume] in Ser um or Plasma by Bromocresol green (BCG) dye binding methoOrdered By: Duane Simons on 01-22-2025 Albumin BCG dye [Mass/Vol] 4.1 g/dL 3.5-5.7 [facility] Alkaline phosphatase [Enzyma tic activity/volume] in Serum or PlasmaOrdered By: Duane Simons on 01-22-2025 ALP [Catalytic activity/Vol] 61 U/L Normal 34-104 [facility] Comment on above: Performed By: #### U HCG, URDS, ADDONUAPLUS #### [facility] [address] [place] [address] [place] Amphetamine Screen Ql (U)Ord ered By: Duane Simons on 01-22-2025 Amphetamines Ql (U) Negative Negative [facility] Appearance of UrineOrdered B y: Duane Simons on 01-22-2025 Appearance (U) Clear Normal Clear [facility] Comment on above: Order Comment: Name Collection Type:: Clean-Voided Midstream Performed By: #### C UU #### [facility] [address] [place] [address] Aspartate aminotransferase [ Enzymatic activity/volume] in Serum or PlasmaOrdered By: Duane Simons on 01-22-2025 AST [Catalytic activity/Vol] 15 U/L Normal 13-39 [facility] Comment on above: Performed By: #### U HCG, URDS, ADDONUAPLUS #### [address] Bacteria [Presence] in Urine by AutomatedOrdered By: Duane Simons on 01-22-2025 Bacteria Auto Ql (U) Rare [HPF] None Seen [facility] Barbiturates [Presence] in U rine by Screen methodOrdered By: Duane Simons on 01-22-2025 Barbiturates Screen Ql (U) Negative Negative [facility] Basophils [#/volume] in Bloo d by Automated countOrdered By: Duane Simons on 01-22-2025 Basophils (Bld) [#/Vol] 0.0 10*3/uL Normal 0.0-0.2 [facility] Comment on above: Result Comment: PERF ORMED BY: [place] [address] PATHOLOGIST [employer]PER[employer] AMBER HENNING M.D. Performed By: #### U HCG, URDS, ADDONUAPLUS #### [facility] [address] [place] [address] [place] Basophils/100 leukocytes in Blood by Automated countOrdered By: Duane Simons on 01-22-2025 Basophils/100 WBC (Bld) 0.3 % Normal . [facility] Comment on above: Performed By: #### U HCG, URDS, ADDONUAPLUS #### [address] Benzodiazepines Screen Ql (U )Ordered By: Duane Simons on 01-22-2025 Benzodiazepines Ql (U) Negative Negative [facility] Benzoylecgonine [Presence] i n Urine by Screen methodOrdered By: Duane Simons on 01-22-2025 Benzoylecgonine Screen Ql (U) Negative Negative [facility] Bilirubin Test strip Ql (U)O rdered By: Duane Simons on 01-22-2025 Bilirubin Ql (U) Negative Negative [facility] Bilirubin.total [Mass/volume ] in Serum or PlasmaOrdered By: Duane Simons on 01-22-2025 Bilirubin [Mass/Vol] 0.2 mg/dL Low 0.3-1.0 [facility] Comment on above: Performed By: #### U HCG, URDS, ADDONUAPLUS #### [facility] [address] [place] [address] [place] Calcium [Mass/volume] in Ser um or PlasmaOrdered By: Duane Simons on 01-22-2025 Calcium [Mass/Vol] 8.8 mg/dL Normal 8.6-10.3 [facility] Comment on above: Performed By: #### U HCG, URDS, ADDONUAPLUS #### [facility] [address] Cannabinoids [Presence] in U rine by Screen methodOrdered By: Duane Simons on 01-22-2025 Cannabinoids Screen Ql (U) Positive High Negative [facility] Comment on above: These are unconfirme d results and should not be used for legal purposes. Drug Cut-Off Concentration: AMPH 1000 ng/mL FIONA 200 ng/mL KIMMY 200 ng/mL COCM 300 ng/mL OP 300 ng/mL PCP 25 ng/mL THC 20 ng/mL Carbon dioxide, total [Moles /volume] in Serum or PlasmaOrdered By: Duane Simons on 01-22-2025 CO2 [Moles/Vol] 31.1 mmol/L High 21.0-31.0 [facility] Comment on above: Performed By: #### U HCG, URDS, ADDONUAPLUS #### [facility] [address] [place] [id number] [place] Chloride [Moles/volume] in S karla or PlasmaOrdered By: Duane Simons on 01-22-2025 Chloride [Moles/Vol] 102 mmol/L Normal 98-107 [facility] Comment on above: Performed By: #### U HCG, URDS, ADDONUAPLUS #### [address] Color of Urine by AutoOrdere d By: Duane Simons on 01-22-2025 Color (U) Yellow Normal Yellow [facility] Comment on above: Order Comment: Name Collection Type:: Clean-Voided Midstream Performed By: #### C UU #### [address] Complete Blood Count Auto Di ffon 01-22-2025 Mean Corpuscular HGB Conc 33.8 g/dL Normal 32.0-35.0 [facility] Comment on above: Performed By: #### U HCG, URDS, ADDONUAPLUS #### [address] Monocytes/100 WBC (Bld) 16.85 % Normal 0.00-20.00 [facility] Comment on above: Performed By: #### U HCG, URDS, ADDONUAPLUS #### [address] NRBC% 0.3 /100{WBC} Normal 0-0.5 [facility] Comment on above: Performed By: #### U HCG, URDS, ADDONUAPLUS #### [address] White Blood Count 6.0 [CFU]/mL Normal 3.8-11.6 [facility] Comment on above: Performed By: #### U HCG, URDS, ADDONUAPLUS #### [address] Comprehensive Metabolic Pane blaine 01-22-2025 Albumin [Mass/Vol] 4.1 g/dL Normal 3.5-5.7 [facility] Comment on above: Performed By: #### U HCG, URDS, ADDONUAPLUS #### [place] [address] [place] Creatinine Clr Calc Pharmacy 114.47 Normal [facility] Comment on above: Result Comment: PERF ORMED BY: [place] [address] PATHOLOGIST [employer]PER[employer] AMBER HENNING M.D. Performed By: #### U HCG, URDS, ADDONUAPLUS #### [place] [address] [place] GFR/1.73 sq M.predicted MDRD (S/P/Bld) [Vol rate/Area] mL/min/{1.73_m2} Normal [facility] Comment on above: Performed By: #### U HCG, URDS, ADDONUAPLUS #### [address] Creatinine [Mass/volume] in Serum or PlasmaOrdered By: Duane Simons on 01-22-2025 Creatinine [Mass/Vol] 0.74 mg/dL Normal 0.60-1.20 [facility] Comment on above: Performed By: #### U HCG, URDS, ADDONUAPLUS #### [place] [address] [place] Dipstick and Microscopicon 0 01-22-2025 Bacteria,Urine Rare Normal None Seen [facility] Comment on above: Order Comment: Name Collection Type:: Clean-Voided Midstream Performed By: #### C UU #### [address] Bilirubin,Urine Negative Normal Negative [facility] Comment on above: Order Comment: Name Collection Type:: Clean-Voided Midstream Performed By: #### C UU #### [place] [address] [place] Glucose Ql (U) Normal Normal Normal The [facility] Comment on above: Order Comment: Name Collection Type:: Clean-Voided Midstream Performed By: #### C UU #### [place] [address] [place] Hyaline Casts,Urine None Normal 0-8 [facility] Comment on above: Order Comment: Name Collection Type:: Clean-Voided Midstream Performed By: #### C UU #### [place] [address] [place] Mucus,Urine 2+ [LPF] Critically abnormal [facility] Comment on above: Order Comment: Name Collection Type:: Clean-Voided Midstream Performed By: #### C UU #### [place] [address] [place] Nitrite,Urine Negative Normal Negative [facility] Comment on above: Order Comment: Name Collection Type:: Clean-Voided Midstream Performed By: #### C UU #### [place] [address] [place] Occult Blood,Urine Negative Normal Negative [facility] Comment on above: Order Comment: Name Collection Type:: Clean-Voided Midstream Performed By: #### C UU #### [place] [address] [place] RBC,Urine 1-2 Normal 0-4 [facility] Comment on above: Order Comment: Name Collection Type:: Clean-Voided Midstream Performed By: #### C UU #### [place] [address] [place] Specificy [place],Urine 1.033 High 1.001-1.030 [facility] Comment on above: Order Comment: Name Collection Type:: Clean-Voided Midstream Performed By: #### C UU #### [place] [address] [place] Squamous Epithelial Cell,Urine 1-2 Normal 0-2 [facility] Comment on above: Order Comment: Name Collection Type:: Clean-Voided Midstream Performed By: #### C UU #### [place] [address] [place] Urobilinogen,Urine Normal Normal Normal [facility] Comment on above: Order Comment: Name Collection Type:: Clean-Voided Midstream Performed By: #### C UU #### [place] [address] [place] WBC,Urine 1-2 Normal 0-4 [facility] Comment on above: Order Comment: Name Collection Type:: Clean-Voided Midstream Performed By: #### C UU #### [address] Drug Screen,Urineon 01-23-20 25 Amphetamine Screen,Urine Negative Normal Negative [facility] Comment on above: Performed By: #### C UU #### [address] Barbiturate Screen,Urine Negative Normal Negative [facility] Comment on above: Performed By: #### C UU #### [address] Benzodiazepines Screen,Urine Negative Normal Negative [facility] Comment on above: Performed By: #### C UU #### [address] Cannabinoid Screen,Urine Positive Normal Negative [facility] Comment on above: Result Comment: Thes e are unconfirmed results and should not be used for legal purposes. Drug Cut-Off Concentration: AMPH 1000 ng/mL FIONA 200 ng/mL KIMMY 200 ng/mL COCM 300 ng/mL OP 300 ng/mL PCP 25 ng/mL THC 20 ng/mL PERFORMED BY: [place] [address] PATHOLOGIST [employer] SUPER[employer]OR AMBER HENNING M.D. Performed By: #### C UU #### [address] Cocaine Screen,Urine Negative Normal Negative [facility] Comment on above: Performed By: #### C UU #### [address] Opiate Screen,Urine Negative Normal Negative [facility] Comment on above: Performed By: #### C UU #### [address] Phencyclidine Screen,Urine Negative Normal Negative [facility] Comment on above: Performed By: #### C UU #### [place] [address] [place] Eosinophils [#/volume] in Bl ood by Automated countOrdered By: Duane Simons on 01-22-2025 Eosinophils (Bld) [#/Vol] 0.0 10*3/uL Normal 0.0-0.45 [facility] Comment on above: Performed By: #### U HCG, URDS, ADDONUAPLUS #### [address] Eosinophils/100 leukocytes i n Blood by Automated countOrdered By: Duane Simons on 01-22-2025 Eosinophils/100 WBC (Bld) 0.1 % Normal . [facility] Comment on above: Performed By: #### U HCG, URDS, ADDONUAPLUS #### [address] Epithelial cells.squamous [# /area] in Urine sediment by Automated countOrdered By: Duane Simons on 01-22-2025 Epithelial cells.squamous Auto (Urine sed) [#/Area] 1-2 [HPF] 0-2 [facility] Erythrocyte distribution wid th [Ratio] by Automated countOrdered By: Duane Simons on 01-22-2025 Erythrocyte distribution width (RBC) [Ratio] 13.5 % Normal 11.9-15.3 [facility] Comment on above: Performed By: #### U HCG, URDS, ADDONUAPLUS #### [address] Erythrocytes [#/area] in Uri ne sediment by Automated countOrdered By: Duane Simons on 01-22-2025 RBC Auto (Urine sed) [#/Area] 1-2 [HPF] 0-4 [facility] Erythrocytes [#/volume] in B lood by Automated countOrdered By: Duane Simons on 01-22-2025 RBC (Bld) [#/Vol] 3.93 10*6/uL Normal 3.60-5.[address] [facility] Comment on above: Performed By: #### U HCG, URDS, ADDONUAPLUS #### [place] [address] [place] Ethanol [Mass/volume] in Ser um or PlasmaOrdered By: Duane Simons on 01-22-2025 Ethanol [Mass/Vol] mg/dL Normal [facility] Comment on above: Performed By: #### U HCG, URDS, ADDONUAPLUS #### [facility] [address] [place] [id number] [facility] Ethyl Alcohol Profileon Percent Ethanol Not performed Normal [facility] Comment on above: Result Comment: PERF ORMED BY: [place] [address] PATHOLOGIST [employer] SUPERVISOR AMBER HENNING M.D. Performed By: #### U HCG, URDS, ADDONUAPLUS #### [facility] [address] [place] [address] [place] Glucose [Mass/volume] in Ser um or PlasmaOrdered By: Duane Simons on 01-22-2025 Glucose [Mass/Vol] 84 mg/dL Normal 70-100 [facility] Comment on above: ADA recommended refe rence rangeRandom Glucose Reference Range is dependent on time and content of last meal. Glucose of more than 200 mg/dL in a nonstressed, ambulatory subject supports the diagnosis of Diabetes Mellitus. Result Comment: Dante om Glucose Reference Range is dependent on time and content of last meal. Glucose of more than 200 mg/dL in a nonstressed, ambulatory subject supports the diagnosis of Diabetes Mellitus. ADA recommended reference range Performed By: #### U HCG, URDS, ADDONUAPLUS #### [facility] [address] [place] [id number] [place] Glucose [Mass/volume] in Uri ne by Test stripOrdered By: Duane Simons on 01-22-2025 Glucose Test strip (U) [Mass/Vol] Normal mg/dL Normal [facility] HCG ( test) IA.rapi d Ql (U)Ordered By: Duane Simons on 01-22-2025 HCG ( test) Ql (U) Negative [facility] HCG,Urineon 01-22-2025 Beta HCG ( test) Ql (U) Negative Normal [facility] Comment on above: Order Comment: Name Collection Type:: Clean-Voided Midstream Result Comment: PERF ORMED BY: [place] [address] PATHOLOGIST [employer] SUPERVISOR AMBER HENNING M.D. Performed By: #### C UU #### [address] Hematocrit [Volume Fraction] of Blood by Automated countOrdered By: Duane Simons on 01-22-2025 Hematocrit (Bld) [Volume fraction] 34.0 % Normal 34.0-46.4 [facility] Comment on above: Performed By: #### U HCG, URDS, ADDONUAPLUS #### [address] Hemoglobin Test strip Ql (U) Ordered By: Duane Simons on 01-22-2025 Hemoglobin Ql (U) Negative Negative [facility] Hemoglobin [Mass/volume] in BloodOrdered By: Duane Simons on 01-22-2025 Hemoglobin (Bld) [Mass/Vol] 11.5 g/dL Low 11.8-15.4 [facility] Comment on above: Performed By: #### U HCG, URDS, ADDONUAPLUS #### [address] Hyaline casts [#/area] in Ur ine sediment by Automated countOrdered By: Duane Simons on 01-22-2025 Hyaline casts Auto (Urine sed) [#/Area] None [LPF] 0-8 [facility] Ketones [Presence] in Urine by Test stripOrdered By: Duane Simons on 01-22-2025 Ketones Ql (U) Negative Normal Negative [facility] Comment on above: Order Comment: Name Collection Type:: Clean-Voided Midstream Performed By: #### C UU #### [address] Leukocyte esterase [Presence ] in Urine by Test stripOrdered By: Duane Simons on 01-22-2025 Leukocyte esterase Test strip Ql (U) Negative Normal Negative [facility] Comment on above: Order Comment: Name Collection Type:: Clean-Voided Midstream Performed By: #### C UU #### [place] [id number] [place] Leukocytes [#/area] in Urine sediment by Automated countOrdered By: Duane Simons on 01-22-2025 WBC Auto (Urine sed) [#/Area] 1-2 [HPF] 0-4 [facility] Leukocytes [#/volume] correc arminda for nucleated erythrocytes in Blood by Automated counOrdered By: Duane Simons on 01-22-2025 WBC corrected for nucl RBC Auto (Bld) [#/Vol] 6.0 10*3/uL 3.8-11.6 [facility] Leukocytes [#/volume] in Blo od by Automated countOrdered By: Duane Simons on 01-22-2025 WBC (Bld) [#/Vol] 6.0 10*3/uL Normal 3.8-11.6 [facility] Comment on above: Performed By: #### U HCG, URDS, ADDONUAPLUS #### [facility] [address] Lipid Panelon 01-22-2025 Cholesterol [Mass/Vol] 204 mg/dL High 140-200 [facility] Comment on above: Result Comment: Chol less than 200 mg/dl low risk Chol 201-239 mg/dl borderline risk Chol 240 mg/dl and greater high risk Performed By: #### V [id number], TSH3 wRFLX, LIPID #### [facility] [address] [place] [address] Cholesterol in HDL [Mass/Vol] 66 mg/dL Normal 23-92 [facility] Comment on above: Result Comment: HDL CHOL ATP-III CLASSIFICATION Cardiovascular Risk HDL > or equal to 60 mg/dL LOW HDL < 40 mg/dL HIGH Performed By: #### V [id number], TSH3 wRFLX, LIPID #### [facility] [address] [place] [id number] [place] Cholesterol.total/Cho lesterol in HDL [Mass ratio] 3.1 {ratio} Normal <5.0 [facility] Comment on above: Performed By: #### V [id number], TSH3 wRFLX, LIPID #### [facility] [address] [place] [address] [place] LDL Cholesterol,Calculate d 125 mg/dL High 0-100 [facility] Comment on above: Result Comment: LDL ATP III CLASSIFICATION LDL less than 100 mg/dL Optimal LDL 100-129 mg/dL Near or above optimal LDL 130-159 mg/dL Borderline high LDL 160-189 mg/dL High LDL greater than 189 mg/dL Very high Performed By: #### V [id number], TSH3 wRFLX, LIPID #### [facility] [address] [place] [address] Triglyceride w/Reflex 65 mg/dL Normal 0-149 [facility] Comment on above: Result Comment: TRIG ATP III CLASSIFICATION TRIG less than 150 mg/dL Normal TRIG 150-199 mg/dL Borderline high TRIG 200-500 mg/dL High TRIG greater than 500 mg/dL Very high Standard traceable to the Center for Disease Conrtrol and Prevention (CDC) test method. Performed By: #### V [id number], TSH3 wRFLX, LIPID #### [address] VLDL CHOLESTEROL 13 mg/dL Normal [facility] Comment on above: Performed By: #### V [id number], TSH3 wRFLX, LIPID #### [place] [address] [place] Lymphocytes [#/volume] in Bl ood by Automated countOrdered By: Duane Simons on 01-22-2025 Lymphocytes (Bld) [#/Vol] 1.8 10*3/uL Normal 1.00-4.8 [facility] Comment on above: Performed By: #### U HCG, URDS, ADDONUAPLUS #### [place] [address] [place] Lymphocytes/100 leukocytes i n Blood by Automated countOrdered By: Duane Simons on 01-22-2025 Lymphocytes/100 WBC (Bld) 29.9 % Normal . [facility] Comment on above: Performed By: #### U HCG, URDS, ADDONUAPLUS #### [place] [address] [place] MCH [Entitic mass] by Automa arminda countOrdered By: Duane Simons on 01-22-2025 MCH (RBC) [Entitic mass] 29.2 pg Normal 24.7-34.3 [facility] Comment on above: Performed By: #### U HCG, URDS, ADDONUAPLUS #### [address] MCHC Auto (RBC) [Mass/Vol]Or dered By: Duane Simons on 01-22-2025 MCHC (RBC) [Mass/Vol] 33.8 g/dL 32.0-35.0 [facility] MCV [Entitic volume] by Auto mated countOrdered By: Duane Simons on 01-22-2025 MCV (RBC) [Entitic vol] 86.6 fL Normal 80-100 [facility] Comment on above: Performed By: #### U HCG, URDS, ADDONUAPLUS #### [address] Monocyte distribution width [Entitic volume] in Blood by AutomatedOrdered By: Duane Simons on 01-22-2025 Monocyte distribution width Auto (Bld) [Entitic vol] 16.85 % 0.00-20.00 [facility] Monocytes [#/volume] in Bloo d by Automated countOrdered By: Duane Simons on 01-22-2025 Monocytes (Bld) [#/Vol] 0.5 10*3/uL Normal 0.0-0.8 [facility] Comment on above: Performed By: #### U HCG, URDS, ADDONUAPLUS #### [facility] [address] [place] [address] Monocytes/100 leukocytes in Blood by Automated countOrdered By: Duane Simons on 01-22-2025 Monocytes/100 WBC (Bld) 8.6 % Normal . [facility] Comment on above: Performed By: #### U HCG, URDS, ADDONUAPLUS #### [address] Mucus [Presence] in Urine by AutomatedOrdered By: Duane Simons on 01-22-2025 Mucus Auto Ql (U) 2+ [LPF] Abnormal [facility] Neutrophils [#/volume] in Bl ood by Automated countOrdered By: Duane Simons on 01-22-2025 Neutrophils (Bld) [#/Vol] 3.7 10*3/uL Normal 1.8-7.7 [facility] Comment on above: Performed By: #### U HCG, URDS, ADDONUAPLUS #### [facility] [address] [place] [address] [place] Neutrophils/100 leukocytes i n Blood by Automated countOrdered By: Duane Simons on 01-22-2025 Neutrophils/100 WBC (Bld) 61.1 % Normal . [facility] Comment on above: Performed By: #### U HCG, URDS, ADDONUAPLUS #### [facility] [address] Nitrite Test strip Ql (U)Ord ered By: Duane Simons on 01-22-2025 Nitrite Ql (U) Negative Negative [facility] No Panel InformationOrdered By: Duane Simons on 01-22-2025 Estimated GFR (CKD-EPI) > 60.0 mL/Min [facility] Creatinine Clearance (Chem 114.47 [facility] Nucleated erythrocytes [Pres ence] in Blood by Automated countOrdered By: Duane Simons on 01-22-2025 Nucleated RBC Auto Ql (Bld) 0.3 /100{WBC} 0-0.5 [facility] Opiates [Presence] in Urine by Screen methodOrdered By: Duane Simons on 01-22-2025 Opiates Screen Ql (U) Negative Negative [facility] Phencyclidine Screen Ql (U)O rdered By: Duane Simons on 01-22-2025 Phencyclidine Ql (U) Negative Negative [facility] Platelet mean volume [Entiti c volume] in Blood by Automated countOrdered By: Duane Simons on 01-22-2025 Platelet mean volume (Bld) [Entitic vol] 7.2 fL Normal 6.3-10.7 [facility] Comment on above: Performed By: #### U HCG, URDS, ADDONUAPLUS #### [facility] [address] [place] [address] [place] Platelets [#/volume] in Bloo d by Automated countOrdered By: Duane Simons on 01-22-2025 Platelets (Bld) [#/Vol] 231 10*3/uL Normal 150-450 [facility] Comment on above: Performed By: #### U HCG, URDS, ADDONUAPLUS #### [place] [address] [place] Potassium [Moles/volume] in Serum or PlasmaOrdered By: Duane Simons on 01-22-2025 Potassium [Moles/Vol] 4.2 mmol/L Normal 3.5-5.1 [facility] Comment on above: Performed By: #### U HCG, URDS, ADDONUAPLUS #### [facility] [address] [place] [address] [place] Protein [Mass/volume] in Ser um or PlasmaOrdered By: Duane Simons on 01-22-2025 Protein [Mass/Vol] 6.9 g/dL Normal 6.4-8.9 [facility] Comment on above: Performed By: #### U HCG, URDS, ADDONUAPLUS #### [address] Protein [Mass/volume] in Uri ne by Test stripOrdered By: Duane Simons on 01-22-2025 Protein (U) [Mass/Vol] 20 mg/dL Normal Negative [facility] Comment on above: Order Comment: Name Collection Type:: Clean-Voided Midstream Performed By: #### C UU #### [address] Serum globulin measurement b y calculation (mass/volume)Ordered By: Duane Simons on 01-22-2025 Globulin (S) [Mass/Vol] 2.8 g/dL Normal [facility] Comment on above: Performed By: #### U HCG, URDS, ADDONUAPLUS #### [address] Serum or plasma albumin/glob ulin mass ratioOrdered By: Duane Simons on 01-22-2025 Albumin/Globulin [Mass ratio] 1.5 {ratio} [facility] Comment on above: Performed By: #### U HCG, URDS, ADDONUAPLUS #### [facility] [address] Serum or plasma anion gap de terminationOrdered By: Duane Simons on 01-22-2025 Anion gap [Moles/Vol] 8.1 mmol/L Normal 6.0-15.0 [facility] Comment on above: Performed By: #### U HCG, URDS, ADDONUAPLUS #### [address] Serum or plasma ethanol alayna urement (mass/volume)Ordered By: Duane Simons on 01-22-2025 Ethanol [Mass/Vol] TNP [facility] Comment on above: Test not performed Sodium [Moles/volume] in Ser um or PlasmaOrdered By: Duane Simons on 01-22-2025 Sodium [Moles/Vol] 137 mmol/L Normal 136-145 [facility] Comment on above: Performed By: #### U HCG, URDS, ADDONUAPLUS #### [address] Specific gravity Test strip (U) [Rel density]Ordered By: Duane Simons on 01-22-2025 Specific gravity (U) [Rel density] 1.033 High 1.001-1.030 [facility] Thyroid Stim Hormone w/Rflxo n 01-22-2025 Thyroid Stim Hormone w/Rflx 0.94 u[iU]/mL Normal 0.45-5.33 [facility] Comment on above: Performed By: #### V [id number], TSH3 wRFLX, LIPID #### [address] Urea nitrogen [Mass/volume] in Serum or PlasmaOrdered By: Duane Simons on 01-22-2025 Urea nitrogen [Mass/Vol] 11 mg/dL Normal 7-25 [facility] Comment on above: Performed By: #### U HCG, URDS, ADDONUAPLUS #### [address] Urobilinogen Test strip (U) [Mass/Vol]Ordered By: Duane Simons on 01-22-2025 Urobilinogen (U) [Mass/Vol] Normal mg/dL Normal [facility] Vitamin D 25 Hydroxy Totalon 01-22-2025 Vitamin D 25 Hydroxy Total 14.1 ng/mL Low 30-100 [facility] Comment on above: Result Comment: CEM MIN D STATUS 25(OH)VITAMIN D RANGE (ng/mL) Deficient <20 Insufficient 20 to <30 Sufficient 30 to 100 Reference: Malou MF,Roly CUEVAS, Kassidy SHAH, et al. Evaluation,treatment, and prevention of vitamin D deficiency; an Endocrine Society clinical practice guideline. JCEM. 2010; 96(7):1911-30. PERFORMED BY: [place] [address] PATHOLOGIST [employer]PER[employer] AMBER HENNING M.D. Performed By: #### V [id number], TSH3 wRFLX, LIPID #### [facility] [address] [place] [address] pH of Urine by Test stripOrd ered By: Duane Simons on 01-22-2025 pH (U) 6.5 [pH] Normal 5.0-9.0 [facility] Comment on above: Order Comment: Name Collection Type:: Clean-Voided Midstream Performed By: #### C UU #### [facility] [address] [place] [address] ECG 12 lead ECGon 12-30-2024 ECG 12 lead ECG [facility] [place] [address] [place] [address] Electrocardiograph Report Signed Patient: Barbra Claros MR#: [id number] : 1995 Acct:[id number] Age/Sex: 29 / F ADM Date: 12/29/24 Loc: Room: [address] [place] [address] Type: ADM IN Attending Dr: Kit Gutierrez MD Ordering Provider: Kit Gutierrez MD Date of Service: 12/30/24 ECG/ECG 12 lead ECG: use of antipsychotics Copies to: Test Reason : Blood Pressure : */* mmHG Vent. Rate : 68 BPM Atrial Rate : 68 BPM P-R Int : 144 ms QRS Dur : 96 ms QT Int : 402 ms P-R-T Axes : 46 41 51 degrees QTcB Int : 427 ms Normal sinus rhythm Confirmed by Stevan Orozco ([id number]) on 12/30/2024 6:12:06 PM Referred By: Electronically Signed By: Stevan Orozco Transcribed By: MUS Signed By Stevan Orozco MD 12/30/24 1812 Normal [facility] Alanine aminotransferase [En zymatic activity/volume] in Serum or PlasmaOrdered By: Norah Sykes on 12-29-2024 ALT [Catalytic activity/Vol] 59 U/L High 7-52 [facility] Comment on above: Performed By: #### C UU #### [facility] [address] [place] [address] Albumin [Mass/volume] in Ser um or Plasma by Bromocresol green (BCG) dye binding methoOrdered By: Norah Sykes on 12-29-2024 Albumin BCG dye [Mass/Vol] 4.0 g/dL 3.5-5.7 [facility] Alkaline phosphatase [Enzyma tic activity/volume] in Serum or PlasmaOrdered By: Norah Sykes on 12-29-2024 ALP [Catalytic activity/Vol] 70 U/L Normal 34-104 [facility] Comment on above: Performed By: #### C UU #### [facility] [address] [place] [address] Amphetamine Screen Ql (U)Ord ered By: Norah Sykes on 12-29-2024 Amphetamines Ql (U) Negative Negative [facility] Appearance of UrineOrdered B y: Norah Sykes on 12-29-2024 Appearance (U) Clear Normal Clear [facility] Comment on above: Order Comment: Name Collection Type:: Clean-Voided Midstream Performed By: #### U HCG, ADDONUAPLUS #### [facility] [address] [place] [address] [place] Aspartate aminotransferase [ Enzymatic activity/volume] in Serum or PlasmaOrdered By: Norah Sykes on 12-29-2024 AST [Catalytic activity/Vol] 28 U/L Normal 13-39 [facility] Comment on above: Performed By: #### C UU #### [facility] [address] [place] [address] Bacteria [Presence] in Urine by AutomatedOrdered By: Norah Sykes on 12-29-2024 Bacteria Auto Ql (U) Rare [HPF] None Seen [facility] Barbiturates [Presence] in U rine by Screen methodOrdered By: Norah Sykes on 12-29-2024 Barbiturates Screen Ql (U) Negative Negative [facility] Basophils [#/volume] in Bloo d by Automated countOrdered By: Norah Sykes on 12-29-2024 Basophils (Bld) [#/Vol] 0.0 10*3/uL Normal 0.0-0.2 [facility] Comment on above: Result Comment: PERF ORMED BY: [place] [address] PATHOLOGIST [employer]PER[employer] AMBER HENNING M.D. Performed By: #### C UU #### [facility] [address] [place] [address] Basophils/100 leukocytes in Blood by Automated countOrdered By: Norah Sykes on 12-29-2024 Basophils/100 WBC (Bld) 0.5 % Normal . [facility] Comment on above: Performed By: #### C UU #### [facility] [address] [place] [address] Benzodiazepines Screen Ql (U )Ordered By: Norah Sykes on 12-29-2024 Benzodiazepines Ql (U) Negative Negative [facility] Benzoylecgonine [Presence] i n Urine by Screen methodOrdered By: Norah Sykes on 12-29-2024 Benzoylecgonine Screen Ql (U) Negative Negative [facility] Bilirubin Test strip Ql (U)O rdered By: Norah Sykes on 12-29-2024 Bilirubin Ql (U) 2+ High Negative [facility] Bilirubin.total [Mass/volume ] in Serum or PlasmaOrdered By: Norah Sykes on 12-29-2024 Bilirubin [Mass/Vol] 0.2 mg/dL Low 0.3-1.0 [facility] Comment on above: Performed By: #### C UU #### [facility] [address] [place] [address] [place] Calcium [Mass/volume] in Ser um or PlasmaOrdered By: Norah Sykes on 12-29-2024 Calcium [Mass/Vol] 8.4 mg/dL Low 8.6-10.3 [facility] Comment on above: Performed By: #### C UU #### [facility] [address] Cannabinoids [Presence] in U rine by Screen methodOrdered By: Norah Sykes on 12-29-2024 Cannabinoids Screen Ql (U) Positive High Negative [facility] Comment on above: These are unconfirme d results and should not be used for legal purposes. Drug Cut-Off Concentration: AMPH 1000 ng/mL FIONA 200 ng/mL KIMMY 200 ng/mL COCM 300 ng/mL OP 300 ng/mL PCP 25 ng/mL THC 20 ng/mL Carbon dioxide, total [Moles /volume] in Serum or PlasmaOrdered By: Norah Sykes on 12-29-2024 CO2 [Moles/Vol] 29.6 mmol/L Normal 21.0-31.0 [facility] Comment on above: Performed By: #### C UU #### [address] Chloride [Moles/volume] in S karla or PlasmaOrdered By: Norah Sykes on 12-29-2024 Chloride [Moles/Vol] 107 mmol/L Normal 98-107 [facility] Comment on above: Performed By: #### C UU #### [facility] [address] Color of Urine by AutoOrdere d By: Norah Sykes on 12-29-2024 Color (U) Light-yellow Normal Yellow [facility] Comment on above: Order Comment: Name Collection Type:: Clean-Voided Midstream Performed By: #### U HCG, ADDONUAPLUS #### [address] Complete Blood Count Auto Di ffon 12-29-2024 Mean Corpuscular HGB Conc 33.0 g/dL Normal 32.0-35.0 [facility] Comment on above: Performed By: #### C UU #### [address] Monocytes/100 WBC (Bld) 16.20 % Normal 0.00-20.00 [facility] Comment on above: Performed By: #### C UU #### [address] NRBC% 0.2 /100{WBC} Normal 0-0.5 [facility] Comment on above: Performed By: #### C UU #### [address] White Blood Count 5.6 [CFU]/mL Normal 3.8-11.6 [facility] Comment on above: Performed By: #### C UU #### [address] Comprehensive Metabolic Pane blaine 12-29-2024 Albumin [Mass/Vol] 4.0 g/dL Normal 3.5-5.7 [facility] Comment on above: Performed By: #### C UU #### [address] Creatinine Clr Calc Pharmacy 118.36 Normal [facility] Comment on above: Result Comment: PERF ORMED BY: [place] [address] PATHOLOGIST [employer]PER[employer] AMBER HENNING M.D. Performed By: #### C UU #### [place] [address] [place] GFR/1.73 sq M.predicted MDRD (S/P/Bld) [Vol rate/Area] mL/min/{1.73_m2} Normal [facility] Comment on above: Performed By: #### C UU #### [address] Creatinine [Mass/volume] in Serum or PlasmaOrdered By: Norah Sykes on 12-29-2024 Creatinine [Mass/Vol] 0.69 mg/dL Normal 0.60-1.20 [facility] Comment on above: Performed By: #### C UU #### [facility] [address] [place] [address] [place] Dipstick and Microscopicon 0 12-29-2024 Bacteria,Urine Rare Normal None Seen [facility] Comment on above: Order Comment: Name Collection Type:: Clean-Voided Midstream Performed By: #### U HCG, ADDONUAPLUS #### [facility] [address] [place] [address] [place] Bilirubin,Urine 2+ Normal Negative [facility] Comment on above: Order Comment: Name Collection Type:: Clean-Voided Midstream Performed By: #### U HCG, ADDONUAPLUS #### [facility] [address] [place] [address] [place] Glucose Ql (U) Normal Normal Normal [facility] Comment on above: Order Comment: Name Collection Type:: Clean-Voided Midstream Performed By: #### U HCG, ADDONUAPLUS #### [facility] [address] [place] [address] [place] Hyaline Casts,Urine None Normal 0-8 [facility] Comment on above: Order Comment: Name Collection Type:: Clean-Voided Midstream Performed By: #### U HCG, ADDONUAPLUS #### [facility] [address] [place] [address] [place] Mucus,Urine Rare Normal [facility] Comment on above: Order Comment: Name Collection Type:: Clean-Voided Midstream Performed By: #### U HCG, ADDONUAPLUS #### [facility] [address] [place] [address] [place] Nitrite,Urine Negative Normal Negative [facility] Comment on above: Order Comment: Name Collection Type:: Clean-Voided Midstream Performed By: #### U HCG, ADDONUAPLUS #### [facility] [address] [place] [address] [place] Occult Blood,Urine Negative Normal Negative [facility] Comment on above: Order Comment: Name Collection Type:: Clean-Voided Midstream Performed By: #### U HCG, ADDONUAPLUS #### [place] [address] [place] Protein,Urine Trace Normal Negative [facility] Comment on above: Order Comment: Name Collection Type:: Clean-Voided Midstream Performed By: #### U HCG, ADDONUAPLUS #### [place] [address] [place] RBC,Urine 1-2 Normal 0-4 [facility] Comment on above: Order Comment: Name Collection Type:: Clean-Voided Midstream Performed By: #### U HCG, ADDONUAPLUS #### [place] [address] [place] Specificy [place],Urine 1.030 Normal 1.001-1.030 [facility] Comment on above: Order Comment: Name Collection Type:: Clean-Voided Midstream Performed By: #### U HCG, ADDONUAPLUS #### [address] Squamous Epithelial Cell,Urine 1-2 Normal 0-2 [facility] Comment on above: Order Comment: Name Collection Type:: Clean-Voided Midstream Performed By: #### U HCG, ADDONUAPLUS #### [place] [address] [place] Urobilinogen,Urine 2 mg/dL Normal Normal [facility] Comment on above: Order Comment: Name Collection Type:: Clean-Voided Midstream Performed By: #### U HCG, ADDONUAPLUS #### [place] [address] [place] WBC,Urine 1-2 Normal 0-4 [facility] Comment on above: Order Comment: Name Collection Type:: Clean-Voided Midstream Performed By: #### U HCG, ADDONUAPLUS #### [place] [address] [place] Drug Screen,Urineon 12-30-19 25 Amphetamine Screen,Urine Negative Normal Negative [facility] Comment on above: Performed By: #### U HCG, URDS, ADDONUAPLUS #### [address] Barbiturate Screen,Urine Negative Normal Negative [facility] Comment on above: Performed By: #### U HCG, URDS, ADDONUAPLUS #### [address] Benzodiazepines Screen,Urine Negative Normal Negative [facility] Comment on above: Performed By: #### U HCG, URDS, ADDONUAPLUS #### [address] Cannabinoid Screen,Urine Positive Normal Negative [facility] Comment on above: Result Comment: Thes e are unconfirmed results and should not be used for legal purposes. Drug Cut-Off Concentration: AMPH 1000 ng/mL FIONA 200 ng/mL KIMMY 200 ng/mL COCM 300 ng/mL OP 300 ng/mL PCP 25 ng/mL THC 20 ng/mL PERFORMED BY: [place] [address] PATHOLOGIST [employer] SUPER[employer]OR AMBER HENNING M.D. Performed By: #### U HCG, URDS, ADDONUAPLUS #### [address] Cocaine Screen,Urine Negative Normal Negative [facility] Comment on above: Performed By: #### U HCG, URDS, ADDONUAPLUS #### [address] Opiate Screen,Urine Negative Normal Negative [facility] Comment on above: Performed By: #### U HCG, URDS, ADDONUAPLUS #### [address] Phencyclidine Screen,Urine Negative Normal Negative [facility] Comment on above: Performed By: #### U HCG, URDS, ADDONUAPLUS #### [address] Eosinophils [#/volume] in Bl ood by Automated countOrdered By: Norah Sykes on 12-29-2024 Eosinophils (Bld) [#/Vol] 0.0 10*3/uL Normal 0.0-0.45 [facility] Comment on above: Performed By: #### C UU #### [facility] [address] Eosinophils/100 leukocytes i n Blood by Automated countOrdered By: Norah Sykes on 12-29-2024 Eosinophils/100 WBC (Bld) 0.0 % Normal . [facility] Comment on above: Performed By: #### C UU #### [facility] [address] Epithelial cells.squamous [# /area] in Urine sediment by Automated countOrdered By: Norah Sykes on 12-29-2024 Epithelial cells.squamous Auto (Urine sed) [#/Area] 1-2 [HPF] 0-2 [facility] Erythrocyte distribution wid th [Ratio] by Automated countOrdered By: Norah Sykes on 12-29-2024 Erythrocyte distribution width (RBC) [Ratio] 13.9 % Normal 11.9-15.3 [facility] Comment on above: Performed By: #### C UU #### [facility] [address] Erythrocytes [#/area] in Uri ne sediment by Automated countOrdered By: Norah Sykes on 12-29-2024 RBC Auto (Urine sed) [#/Area] 1-2 [HPF] 0-4 [facility] Erythrocytes [#/volume] in B lood by Automated countOrdered By: Norah Sykes on 12-29-2024 RBC (Bld) [#/Vol] 3.66 10*6/uL Normal 3.60-5.[address] [facility] Comment on above: Performed By: #### C UU #### [facility] [address] Ethanol [Mass/volume] in Ser um or PlasmaOrdered By: Norah Sykes on 12-29-2024 Ethanol [Mass/Vol] mg/dL Normal [facility] Comment on above: Performed By: #### C UU #### [facility] [address] Ethyl Alcohol Profileon 12-17 Percent Ethanol Not performed Normal [facility] Comment on above: Result Comment: PERF ORMED BY: [place] [address] PATHOLOGIST [employer] SUPER[employer]OR AMBER HENNING M.D. Performed By: #### C UU #### [facility] [address] Free T4 (Free Thyroxine)on 0 12-29-2024 Free T4 [Mass/Vol] 0.59 ng/dL Low 0.61-1.12 [facility] Comment on above: Performed By: #### C UU #### [facility] [address] [place] [address] [place] Glucose [Mass/volume] in Ser um or PlasmaOrdered By: Norah Sykes on 12-29-2024 Glucose [Mass/Vol] 80 mg/dL Normal 70-100 [facility] Comment on above: ADA recommended refe rence rangeRandom Glucose Reference Range is dependent on time and content of last meal. Glucose of more than 200 mg/dL in a nonstressed, ambulatory subject supports the diagnosis of Diabetes Mellitus. Result Comment: Dante om Glucose Reference Range is dependent on time and content of last meal. Glucose of more than 200 mg/dL in a nonstressed, ambulatory subject supports the diagnosis of Diabetes Mellitus. ADA recommended reference range Performed By: #### C UU #### [facility] [address] [place] [address] [place] Glucose [Mass/volume] in Uri ne by Test stripOrdered By: Norah Sykes on 12-29-2024 Glucose Test strip (U) [Mass/Vol] Normal mg/dL Normal [facility] HCG ( test) IA.rapi d Ql (U)Ordered By: Norah Sykes on 12-29-2024 HCG ( test) Ql (U) Negative [facility] HCG,Urineon 12-29-2024 Beta HCG ( test) Ql (U) Negative Normal [facility] Comment on above: Order Comment: Name Collection Type:: Clean-Voided Midstream Result Comment: PERF ORMED BY: [address] [place] [address] PATHOLOGIST [employer] SUPER[employer]OR AMBER HENNING M.D. Performed By: #### U HCG, ADDONUAPLUS #### [address] Hematocrit [Volume Fraction] of Blood by Automated countOrdered By: Norah Sykes on 12-29-2024 Hematocrit (Bld) [Volume fraction] 32.3 % Low 34.0-46.4 [facility] Comment on above: Performed By: #### C UU #### [address] Hemoglobin Test strip Ql (U) Ordered By: Norah Sykes on 12-29-2024 Hemoglobin Ql (U) Negative Negative [facility] Hemoglobin [Mass/volume] in BloodOrdered By: Norah Sykes on 12-29-2024 Hemoglobin (Bld) [Mass/Vol] 10.6 g/dL Low 11.8-15.4 [facility] Comment on above: Performed By: #### C UU #### [address] Hyaline casts [#/area] in Ur ine sediment by Automated countOrdered By: Norah Sykes on 12-29-2024 Hyaline casts Auto (Urine sed) [#/Area] None [LPF] 0-8 [facility] Ketones [Presence] in Urine by Test stripOrdered By: Norah Sykes on 12-29-2024 Ketones Ql (U) Negative Normal Negative [facility] Comment on above: Order Comment: Name Collection Type:: Clean-Voided Midstream Performed By: #### U HCG, ADDONUAPLUS #### [address] Leukocyte esterase [Presence ] in Urine by Test stripOrdered By: Norah Sykes on 12-29-2024 Leukocyte esterase Test strip Ql (U) Negative Normal Negative [facility] Comment on above: Order Comment: Name Collection Type:: Clean-Voided Midstream Performed By: #### U HCG, ADDONUAPLUS #### [place] [address] [place] Leukocytes [#/area] in Urine sediment by Automated countOrdered By: Norah Sykes on 12-29-2024 WBC Auto (Urine sed) [#/Area] 1-2 [HPF] 0-4 [facility] Leukocytes [#/volume] correc arminda for nucleated erythrocytes in Blood by Automated counOrdered By: Norah Sykes on 12-29-2024 WBC corrected for nucl RBC Auto (Bld) [#/Vol] 5.6 10*3/uL 3.8-11.6 [facility] Leukocytes [#/volume] in Blo od by Automated countOrdered By: Norah Sykes on 12-29-2024 WBC (Bld) [#/Vol] 5.6 10*3/uL Normal 3.8-11.6 [facility] Comment on above: Performed By: #### C UU #### [facility] [address] Lipid Panelon 12-29-2024 Cholesterol [Mass/Vol] 199 mg/dL Normal 140-200 [facility] Comment on above: Result Comment: Chol less than 200 mg/dl low risk Chol 201-239 mg/dl borderline risk Chol 240 mg/dl and greater high risk Performed By: #### C UU #### [facility] [address] Cholesterol in HDL [Mass/Vol] 65 mg/dL Normal 23-92 [facility] Comment on above: Result Comment: HDL CHOL ATP-III CLASSIFICATION Cardiovascular Risk HDL > or equal to 60 mg/dL LOW HDL < 40 mg/dL HIGH Performed By: #### C UU #### [facility] [address] [place] [address] [place] Cholesterol.total/Cho lesterol in HDL [Mass ratio] 3.1 {ratio} Normal <5.0 [facility] Comment on above: Performed By: #### C UU #### [facility] [address] [place] [address] [place] LDL Cholesterol,Calculate d 119 mg/dL High 0-100 [facility] Comment on above: Result Comment: LDL ATP III CLASSIFICATION LDL less than 100 mg/dL Optimal LDL 100-129 mg/dL Near or above optimal LDL 130-159 mg/dL Borderline high LDL 160-189 mg/dL High LDL greater than 189 mg/dL Very high Performed By: #### C UU #### [address] Triglyceride w/Reflex 77 mg/dL Normal 0-149 [facility] Comment on above: Result Comment: TRIG ATP III CLASSIFICATION TRIG less than 150 mg/dL Normal TRIG 150-199 mg/dL Borderline high TRIG 200-500 mg/dL High TRIG greater than 500 mg/dL Very high Standard traceable to the Center for Disease Conrtrol and Prevention (CDC) test method. Performed By: #### C UU #### [address] VLDL CHOLESTEROL 15 mg/dL Normal [facility] Comment on above: Performed By: #### C UU #### [address] Lymphocytes [#/volume] in Bl ood by Automated countOrdered By: Norah Sykes on 12-29-2024 Lymphocytes (Bld) [#/Vol] 2.2 10*3/uL Normal 1.00-4.8 [facility] Comment on above: Performed By: #### C UU #### [address] Lymphocytes/100 leukocytes i n Blood by Automated countOrdered By: Norah Sykes on 12-29-2024 Lymphocytes/100 WBC (Bld) 40.3 % Normal . [facility] Comment on above: Performed By: #### C UU #### [place] [address] [place] MCH [Entitic mass] by Automa arminda countOrdered By: Norah Sykes on 12-29-2024 MCH (RBC) [Entitic mass] 29.1 pg Normal 24.7-34.3 [facility] Comment on above: Performed By: #### C UU #### [address] MCHC Auto (RBC) [Mass/Vol]Or dered By: Norah Sykes on 12-29-2024 MCHC (RBC) [Mass/Vol] 33.0 g/dL 32.0-35.0 [facility] MCV [Entitic volume] by Auto mated countOrdered By: Norah Sykes on 12-29-2024 MCV (RBC) [Entitic vol] 88.2 fL Normal 80-100 [facility] Comment on above: Performed By: #### C UU #### [address] Monocyte distribution width [Entitic volume] in Blood by AutomatedOrdered By: Norah Sykes on 12-29-2024 Monocyte distribution width Auto (Bld) [Entitic vol] 16.20 % 0.00-20.00 [facility] Monocytes [#/volume] in Bloo d by Automated countOrdered By: Norah Sykes on 12-29-2024 Monocytes (Bld) [#/Vol] 0.5 10*3/uL Normal 0.0-0.8 [facility] Comment on above: Performed By: #### C UU #### [place] [address] [place] Monocytes/100 leukocytes in Blood by Automated countOrdered By: Norah Sykes on 12-29-2024 Monocytes/100 WBC (Bld) 8.4 % Normal . [facility] Comment on above: Performed By: #### C UU #### [address] Mucus [Presence] in Urine by AutomatedOrdered By: Norah Sykes on 12-29-2024 Mucus Auto Ql (U) Rare [LPF] [facility] Neutrophils [#/volume] in Bl ood by Automated countOrdered By: Norah Sykes on 12-29-2024 Neutrophils (Bld) [#/Vol] 2.8 10*3/uL Normal 1.8-7.7 [facility] Comment on above: Performed By: #### C UU #### [address] Neutrophils/100 leukocytes i n Blood by Automated countOrdered By: Norah Sykes on 12-29-2024 Neutrophils/100 WBC (Bld) 50.8 % Normal . [facility] Comment on above: Performed By: #### C UU #### [facility] [address] [place] [address] [place] Nitrite Test strip Ql (U)Ord ered By: Norah Sykes on 12-29-2024 Nitrite Ql (U) Negative Negative [facility] No Panel InformationOrdered By: Norah Sykes on 12-29-2024 Estimated GFR (CKD-EPI) > 60.0 mL/Min [facility] Creatinine Clearance (Chem 118.36 [facility] Nucleated erythrocytes [Pres ence] in Blood by Automated countOrdered By: Norah Sykes on 12-29-2024 Nucleated RBC Auto Ql (Bld) 0.2 /100{WBC} 0-0.5 [facility] Opiates [Presence] in Urine by Screen methodOrdered By: Norah Sykes on 12-29-2024 Opiates Screen Ql (U) Negative Negative [facility] Phencyclidine Screen Ql (U)O rdered By: Norah Sykes on 12-29-2024 Phencyclidine Ql (U) Negative Negative [facility] Platelet mean volume [Entiti c volume] in Blood by Automated countOrdered By: Norah Sykes on 12-29-2024 Platelet mean volume (Bld) [Entitic vol] 6.9 fL Normal 6.3-10.7 [facility] Comment on above: Performed By: #### C UU #### [facility] [address] [place] [address] [place] Platelets [#/volume] in Bloo d by Automated countOrdered By: Norah Sykes on 12-29-2024 Platelets (Bld) [#/Vol] 253 10*3/uL Normal 150-450 [facility] Comment on above: Performed By: #### C UU #### [facility] [address] Potassium [Moles/volume] in Serum or PlasmaOrdered By: Norah Sykes on 12-29-2024 Potassium [Moles/Vol] 4.3 mmol/L Normal 3.5-5.1 [facility] Comment on above: Performed By: #### C UU #### [address] Protein Test strip (U) [Mass /Vol]Ordered By: Norah Sykes on 12-29-2024 Protein (U) [Mass/Vol] Trace mg/dL High Negative [facility] Protein [Mass/volume] in Ser um or PlasmaOrdered By: Norah Sykes on 12-29-2024 Protein [Mass/Vol] 6.8 g/dL Normal 6.4-8.9 [facility] Comment on above: Performed By: #### C UU #### [address] Serum globulin measurement b y calculation (mass/volume)Ordered By: Norah Sykes on 12-29-2024 Globulin (S) [Mass/Vol] 2.8 g/dL Normal [facility] Comment on above: Performed By: #### C UU #### [facility] [address] [place] [address] Serum or plasma albumin/glob ulin mass ratioOrdered By: Norah Sykes on 12-29-2024 Albumin/Globulin [Mass ratio] 1.4 {ratio} [facility] Comment on above: Performed By: #### C UU #### [address] Serum or plasma anion gap de terminationOrdered By: Norah Sykes on 12-29-2024 Anion gap [Moles/Vol] 6.7 mmol/L Normal 6.0-15.0 [facility] Comment on above: Performed By: #### C UU #### [address] Serum or plasma ethanol alayna urement (mass/volume)Ordered By: Norah Sykes on 12-29-2024 Ethanol [Mass/Vol] [facility] Comment on above: Test not performed Sodium [Moles/volume] in Ser um or PlasmaOrdered By: Norah Sykes on 12-29-2024 Sodium [Moles/Vol] 139 mmol/L Normal 136-145 [facility] Comment on above: Performed By: #### C UU #### [facility] [address] [place] [address] [facility] Specific gravity Test strip (U) [Rel density]Ordered By: Norah Sykes on 12-29-2024 Specific gravity (U) [Rel density] 1.030 1.001-1.030 [facility] Thyroid Stim Hormone w/Rflxo n 12-29-2024 Thyroid Stim Hormone w/Rflx 5.46 u[iU]/mL High 0.45-5.33 [facility] Comment on above: Performed By: #### C UU #### [place] [id number] [facility] Urea nitrogen [Mass/volume] in Serum or PlasmaOrdered By: Norah Sykes on 12-29-2024 Urea nitrogen [Mass/Vol] 15 mg/dL Normal 7-25 [facility] Comment on above: Performed By: #### C UU #### [place] [id number] [facility] Urobilinogen Test strip (U) [Mass/Vol]Ordered By: Norah Sykes on 12-29-2024 Urobilinogen (U) [Mass/Vol] 2 mg/dL High Normal [facility] Vitamin D 25 Hydroxy Totalon 12-29-2024 Vitamin D 25 Hydroxy Total 13.6 ng/mL Low 30-100 [facility] Comment on above: Result Comment: CEM MIN D STATUS 25(OH)VITAMIN D RANGE (ng/mL) Deficient <20 Insufficient 20 to <30 Sufficient 30 to 100 Reference: Malou MF,Roly NC, Kassidy SHAH, et al. Evaluation,treatment, and prevention of vitamin D deficiency; an Endocrine Society clinical practice guideline. JCEM. 2010; 96(7):1911-30. PERFORMED BY: [place] [address] PATHOLOGIST [employer]PER[employer] AMBER HENNING M.D. Performed By: #### C UU #### [place] [id number] [place] pH of Urine by Test stripOrd ered By: Norah Sykes on 12-29-2024 pH (U) 6.0 [pH] Normal 5.0-9.0 [facility] Comment on above: Order Comment: Name Collection Type:: Clean-Voided Midstream Performed By: #### U HCG, ADDONUAPLUS #### [address] ECG 12 lead ECGon 12-04-2024 ECG 12 lead ECG [facility] [place] [address] [place] [address] Electrocardiograph Report Signed Patient: Barbra Claros MR#: [id number] : 1995 Acct:[id number] Age/Sex: 29 / F ADM Date: 12/03/24 Loc: Room: [address] [place] [address] Type: ADM IN Attending Dr: Kit Gutierrez [...] was found Confirmed by PAUL JUAREZ MD ([id number]) on 12/04/2024 9:51:36 AM Referred By: Electronically Signed By: PAUL JUAREZ MD Transcribed By: MUS Signed By Paul Juarez MD 0 12/04/24 0951 Normal [facility] Complete Blood Count Auto Di ffon 12-03-2024 Basophils (Bld) [#/Vol] 0.0 10*3/uL Normal 0.0-0.2 [facility] Comment on above: Result Comment: PERF ORMED BY: [place] [address] PATHOLOGIST [employer]PER[employer] AMBER HENNING M.D. Performed By: #### U HCG, ADDONUAPLUS #### [place] [address] [place] Basophils/100 WBC (Bld) 0.3 % Normal . [facility] Comment on above: Performed By: #### U HCG, ADDONUAPLUS #### [address] Eosinophils (Bld) [#/Vol] 0.0 10*3/uL Normal 0.0-0.45 [facility] Comment on above: Performed By: #### U HCG, ADDONUAPLUS #### [address] Eosinophils/100 WBC (Bld) 0.1 % Normal . [facility] Comment on above: Performed By: #### U HCG, ADDONUAPLUS #### [address] Erythrocyte distribution width (RBC) [Ratio] 14.3 % Normal 11.9-15.3 [facility] Comment on above: Performed By: #### U HCG, ADDONUAPLUS #### [address] Hematocrit (Bld) [Volume fraction] 35.9 % Normal 34.0-46.4 [facility] Comment on above: Performed By: #### U HCG, ADDONUAPLUS #### [place] [address] [place] Hemoglobin (Bld) [Mass/Vol] 12.1 g/dL Normal 11.8-15.4 [facility] Comment on above: Performed By: #### U HCG, ADDONUAPLUS #### [place] [address] [place] Lymphocytes (Bld) [#/Vol] 2.0 10*3/uL Normal 1.00-4.8 [facility] Comment on above: Performed By: #### U HCG, ADDONUAPLUS #### [place] [address] [place] Lymphocytes/100 WBC (Bld) 33.7 % Normal . [facility] Comment on above: Performed By: #### U HCG, ADDONUAPLUS #### [address] MCH (RBC) [Entitic mass] 29.3 pg Normal 24.7-34.3 [facility] Comment on above: Performed By: #### U HCG, ADDONUAPLUS #### [address] MCV (RBC) [Entitic vol] 86.6 fL Normal 80-100 [facility] Comment on above: Performed By: #### U HCG, ADDONUAPLUS #### [address] Mean Corpuscular HGB Conc 33.9 g/dL Normal 32.0-35.0 [facility] Comment on above: Performed By: #### U HCG, ADDONUAPLUS #### [address] Monocytes (Bld) [#/Vol] 0.5 10*3/uL Normal 0.0-0.8 [facility] Comment on above: Performed By: #### U HCG, ADDONUAPLUS #### [address] Monocytes/100 WBC (Bld) 17.21 % Normal 0.00-20.00 [facility] Comment on above: Performed By: #### U HCG, ADDONUAPLUS #### [address] Monocytes/100 WBC (Bld) 7.7 % Normal . [facility] Comment on above: Performed By: #### U HCG, ADDONUAPLUS #### [place] [address] [place] Neutrophils (Bld) [#/Vol] 3.5 10*3/uL Normal 1.8-7.7 [facility] Comment on above: Performed By: #### U HCG, ADDONUAPLUS #### [address] Neutrophils/100 WBC (Bld) 58.2 % Normal . [facility] Comment on above: Performed By: #### U HCG, ADDONUAPLUS #### [address] NRBC% 0.1 /100{WBC} Normal 0-0.5 [facility] Comment on above: Performed By: #### U HCG, ADDONUAPLUS #### [address] Platelet mean volume (Bld) [Entitic vol] 7.2 fL Normal 6.3-10.7 [facility] Comment on above: Performed By: #### U HCG, ADDONUAPLUS #### [address] Platelets (Bld) [#/Vol] 296 10*3/uL Normal 150-450 [facility] Comment on above: Performed By: #### U HCG, ADDONUAPLUS #### [address] RBC (Bld) [#/Vol] 4.14 10*6/uL Normal 3.60-5.00 [facility] Comment on above: Performed By: #### U HCG, ADDONUAPLUS #### [address] WBC (Bld) [#/Vol] 5.9 10*3/uL Normal 3.8-11.6 [facility] Comment on above: Performed By: #### U HCG, ADDONUAPLUS #### [address] White Blood Count 5.9 [CFU]/mL Normal 3.8-11.6 [facility] Comment on above: Performed By: #### U HCG, ADDONUAPLUS #### [address] Comprehensive Metabolic Pane blaine 12-03-2024 Albumin [Mass/Vol] 4.3 g/dL Normal 3.5-5.7 [facility] Comment on above: Performed By: #### U HCG, ADDONUAPLUS #### [facility] [address] [place] [address] [place] Albumin/Globulin [Mass ratio] 1.4 {ratio} Normal [facility] Comment on above: Performed By: #### U HCG, ADDONUAPLUS #### [facility] [address] ALP [Catalytic activity/Vol] 55 U/L Normal 34-104 [facility] Comment on above: Performed By: #### U HCG, ADDONUAPLUS #### [facility] [address] ALT [Catalytic activity/Vol] 19 U/L Normal 7-52 [facility] Comment on above: Performed By: #### U HCG, ADDONUAPLUS #### [facility] [address] Anion gap [Moles/Vol] 6.8 mmol/L Normal 6.0-15.0 [facility] Comment on above: Performed By: #### U HCG, ADDONUAPLUS #### [address] AST [Catalytic activity/Vol] 19 U/L Normal 13-39 [facility] Comment on above: Performed By: #### U HCG, ADDONUAPLUS #### [facility] [address] [place] [address] [place] Bilirubin [Mass/Vol] 0.3 mg/dL Normal 0.3-1.0 [facility] Comment on above: Performed By: #### U HCG, ADDONUAPLUS #### [facility] [address] [place] [address] [place] Calcium [Mass/Vol] 9.2 mg/dL Normal 8.6-10.3 [facility] Comment on above: Performed By: #### U HCG, ADDONUAPLUS #### [facility] [address] [place] [address] [place] Chloride [Moles/Vol] 104 mmol/L Normal 98-107 [facility] Comment on above: Performed By: #### U HCG, ADDONUAPLUS #### [facility] [address] [place] [address] [place] CO2 [Moles/Vol] 30.3 mmol/L Normal 21.0-31.0 [facility] Comment on above: Performed By: #### U HCG, ADDONUAPLUS #### [address] Creatinine [Mass/Vol] 0.82 mg/dL Normal 0.60-1.20 [facility] Comment on above: Performed By: #### U HCG, ADDONUAPLUS #### [place] [address] [place] Creatinine Clr Calc Pharmacy 95.09 Normal [facility] Comment on above: Result Comment: PERF ORMED BY: [place] [address] PATHOLOGIST [employer] SUPER[employer]OR AMBER HENNING M.D. Performed By: #### U HCG, ADDONUAPLUS #### [place] [address] [place] GFR/1.73 sq M.predicted MDRD (S/P/Bld) [Vol rate/Area] mL/min/{1.73_m2} Normal [facility] Comment on above: Performed By: #### U HCG, ADDONUAPLUS #### [place] [address] [place] Globulin (S) [Mass/Vol] 3.0 g/dL Normal [facility] Comment on above: Performed By: #### U HCG, ADDONUAPLUS #### [address] Glucose [Mass/Vol] 82 mg/dL Normal 70-100 [facility] Comment on above: Result Comment: Dante Glucose Reference Range is dependent on time and content of last meal. Glucose of more than 200 mg/dL in a nonstressed, ambulatory subject supports the diagnosis of Diabetes Mellitus. ADA recommended reference range Performed By: #### U HCG, ADDONUAPLUS #### [place] [address] [place] Potassium [Moles/Vol] 4.1 mmol/L Normal 3.5-5.1 [facility] Comment on above: Performed By: #### U HCG, ADDONUAPLUS #### [address] Protein [Mass/Vol] 7.3 g/dL Normal 6.4-8.9 [facility] Comment on above: Performed By: #### U HCG, ADDONUAPLUS #### [address] Sodium [Moles/Vol] 137 mmol/L Normal 136-145 [facility] Comment on above: Performed By: #### U HCG, ADDONUAPLUS #### [address] Urea nitrogen [Mass/Vol] 11 mg/dL Normal 7-25 [facility] Comment on above: Performed By: #### U HCG, ADDONUAPLUS #### [address] Drug Screen,Urineon 12-04-19 25 Amphetamine Screen,Urine Negative Normal Negative [facility] Comment on above: Performed By: #### U HCG, ADDONUAPLUS #### [address] Barbiturate Screen,Urine Negative Normal Negative [facility] Comment on above: Performed By: #### U HCG, ADDONUAPLUS #### [address] Benzodiazepines Screen,Urine Negative Normal Negative [facility] Comment on above: Performed By: #### U HCG, ADDONUAPLUS #### [address] Cannabinoid Screen,Urine Positive Normal Negative [facility] Comment on above: Result Comment: Thes e are unconfirmed results and should not be used for legal purposes. Drug Cut-Off Concentration: AMPH 1000 ng/mL FIONA 200 ng/mL KIMMY 200 ng/mL COCM 300 ng/mL OP 300 ng/mL PCP 25 ng/mL THC 20 ng/mL PERFORMED BY: [place] [id number] PATHOLOGIST [employer] SUPER[employer]OR AMBER HENNING M.D. Performed By: #### U HCG, ADDONUAPLUS #### [address] Cocaine Screen,Urine Negative Normal Negative [facility] Comment on above: Performed By: #### U HCG, ADDONUAPLUS #### [address] Opiate Screen,Urine Negative Normal Negative [facility] Comment on above: Performed By: #### U HCG, ADDONUAPLUS #### [address] Phencyclidine Screen,Urine Negative Normal Negative [facility] Comment on above: Performed By: #### U HCG, ADDONUAPLUS #### [address] Ethyl Alcohol Profileon 11-17 Ethanol [Mass/Vol] mg/dL Normal [facility] Comment on above: Performed By: #### U HCG, ADDONUAPLUS #### [address] Percent Ethanol Not performed Normal [facility] Comment on above: Result Comment: PERF ORMED BY: [place] [address] PATHOLOGIST [employer] SUPER[employer]OR AMBER HENNING M.D. Performed By: #### U HCG, ADDONUAPLUS #### [address] HCG,Urineon 12-03-2024 Beta HCG ( test) Ql (U) Negative Normal [facility] Comment on above: Order Comment: Name Collection Type:: Clean-Voided Midstream Result Comment: PERF ORMED BY: [place] [address] PATHOLOGIST [employer] SUPER[employer]OR AMBER HENNING M.D. Performed By: #### U HCG, ADDONUAPLUS #### [address] Lipid Panelon 12-03-2024 Cholesterol [Mass/Vol] 178 mg/dL Normal 140-200 [facility] Comment on above: Order Comment: Name Collection Type:: Clean-Voided Midstream Result Comment: Chol less than 200 mg/dl low risk Chol 201-239 mg/dl borderline risk Chol 240 mg/dl and greater high risk Performed By: #### U HCG, URDS, ADDONUAPLUS #### [facility] [address] [place] [id number] [place] Cholesterol in HDL [Mass/Vol] 51 mg/dL Normal 23-92 [facility] Comment on above: Order Comment: Name Collection Type:: Clean-Voided Midstream Result Comment: HDL CHOL ATP-III CLASSIFICATION Cardiovascular Risk HDL > or equal to 60 mg/dL LOW HDL < 40 mg/dL HIGH Performed By: #### U HCG, URDS, ADDONUAPLUS #### [facility] [address] Cholesterol.total/Cho lesterol in HDL [Mass ratio] 3.5 {ratio} Normal <5.0 [facility] Comment on above: Order Comment: Name Collection Type:: Clean-Voided Midstream Performed By: #### U HCG, URDS, ADDONUAPLUS #### [facility] [address] [place] [id number] [place] LDL Cholesterol,Calculate d 109 mg/dL High 0-100 [facility] Comment on above: Order Comment: Name Collection Type:: Clean-Voided Midstream Result Comment: LDL ATP III CLASSIFICATION LDL less than 100 mg/dL Optimal LDL 100-129 mg/dL Near or above optimal LDL 130-159 mg/dL Borderline high LDL 160-189 mg/dL High LDL greater than 189 mg/dL Very high Performed By: #### U HCG, URDS, ADDONUAPLUS #### [facility] [address] [place] [id number] [place] Triglyceride w/Reflex 90 mg/dL Normal 0-149 [facility] Comment on above: Order Comment: Name Collection Type:: Clean-Voided Midstream Result Comment: TRIG ATP III CLASSIFICATION TRIG less than 150 mg/dL Normal TRIG 150-199 mg/dL Borderline high TRIG 200-500 mg/dL High TRIG greater than 500 mg/dL Very high Standard traceable to the Center for Disease Conrtrol and Prevention (CDC) test method. Performed By: #### U HCG, URDS, ADDONUAPLUS #### [address] VLDL CHOLESTEROL 18 mg/dL Normal [facility] Comment on above: Order Comment: Name Collection Type:: Clean-Voided Midstream Performed By: #### U HCG, URDS, ADDONUAPLUS #### [address] Thyroid Stim Hormone w/Rflxo n 12-03-2024 Thyroid Stim Hormone w/Rflx 3.77 u[iU]/mL Normal 0.45-5.33 [facility] Comment on above: Order Comment: Name Collection Type:: Clean-Voided Midstream Performed By: #### U HCG, URDS, ADDONUAPLUS #### [address] Urinalysison 12-03-2024 Appearance (U) Clear Normal Clear The [facility] Comment on above: Order Comment: Name Collection Type:: Clean-Voided Midstream Performed By: #### U HCG, ADDONUAPLUS #### [address] Bilirubin,Urine Negative Normal Negative [facility] Comment on above: Order Comment: Name Collection Type:: Clean-Voided Midstream Performed By: #### U HCG, ADDONUAPLUS #### [address] Color (U) Colorless Normal Yellow [facility] Comment on above: Order Comment: Name Collection Type:: Clean-Voided Midstream Performed By: #### U HCG, ADDONUAPLUS #### [address] Glucose Ql (U) Normal Normal Normal The [facility] Comment on above: Order Comment: Name Collection Type:: Clean-Voided Midstream Performed By: #### U HCG, ADDONUAPLUS #### [address] [address] [place] Ketones Ql (U) Negative Normal Negative [facility] Comment on above: Order Comment: Name Collection Type:: Clean-Voided Midstream Performed By: #### U HCG, ADDONUAPLUS #### [address] Leukocyte esterase Test strip Ql (U) Negative Normal Negative [facility] Comment on above: Order Comment: Name Collection Type:: Clean-Voided Midstream Performed By: #### U HCG, ADDONUAPLUS #### [place] [address] [place] Nitrite,Urine Negative Normal Negative The [facility] Comment on above: Order Comment: Name Collection Type:: Clean-Voided Midstream Performed By: #### U HCG, ADDONUAPLUS #### [place] [address] [place] Occult Blood,Urine Negative Normal Negative [facility] Comment on above: Order Comment: Name Collection Type:: Clean-Voided Midstream Performed By: #### U HCG, ADDONUAPLUS #### [place] [address] [place] pH (U) 7.5 [pH] Normal 5.0-9.0 [facility] Comment on above: Order Comment: Name Collection Type:: Clean-Voided Midstream Performed By: #### U HCG, ADDONUAPLUS #### [place] [address] [place] Protein,Urine Negative Normal Negative [facility] Comment on above: Order Comment: Name Collection Type:: Clean-Voided Midstream Performed By: #### U HCG, ADDONUAPLUS #### [place] [address] [place] Specificy [place],Urine 1.006 Normal 1.001-1.030 [facility] Comment on above: Order Comment: Name Collection Type:: Clean-Voided Midstream Performed By: #### U HCG, ADDONUAPLUS #### [place] [address] [place] Urobilinogen,Urine Normal Normal Normal [facility] Comment on above: Order Comment: Name Collection Type:: Clean-Voided Midstream Performed By: #### U HCG, ADDONUAPLUS #### [place] [id number] [facility] Vitamin D 25 Hydroxy Totalon 12-03-2024 Vitamin D 25 Hydroxy Total 10.9 ng/mL Low 30-100 [facility] Comment on above: Order Comment: Name Collection Type:: Clean-Voided Midstream Result Comment: CEM MIN D STATUS 25(OH)VITAMIN D RANGE (ng/mL) Deficient <20 Insufficient 20 to <30 Sufficient 30 to 100 Reference: Malou MF,Roly NC, Kassidy SHAH, et al. Evaluation,treatment, and prevention of vitamin D deficiency; an Endocrine Society clinical practice guideline. JCEM. 2010; 96(7):1911-30. PERFORMED BY: [place] [address] PATHOLOGIST [employer]PERVISOR AMBER HENNING M.D. Performed By: #### U HCG, URDS, ADDONUAPLUS #### [address] Urine Cultureon 11-23-2024 Bacteria identified Cx Nom (U) 75,000 colonies/ml mixed bacterial skin contaminants 2 Days PERFORMED BY: [place] [address] PATHOLOGIST [employer]FF[employer] SUPERVISOR AMBER HENNING M.D. Normal [facility] Comment on above: Performed By: #### C UU #### [address] Urine cultureOrdered By: Chavez Gunter on 11-23-2024 Bacteria identified Cx Nom (U) [address] [facility] ECG 12 lead ECGon 11-15-2024 ECG 12 lead ECG [facility] [address] Electrocardiograph Report Signed Patient: Barbra Claros MR#: [id number] : 1995 Acct:[id number] Age/Sex: 29 / F ADM Date: 11/14/24 Loc: 1S Room: 0U5539-4 Type: ADM IN Attending Dr: Dashawn Moreno [...] rhythm Normal ECG Confirmed by Rhoda Herring ([id number]) on 11/15/2024 4:36:41 PM Referred By: Electronically Signed By: Rhoda Herring Transcribed By: MUS Signed By Rhoda Herring MD 5 [id number] Normal [facility] X-ray reportOrdered By: Jay Sunshine on 11-15-2024 Study report [facility] [address] XRay Report Signed Patient: Barbra Claros MR#: [id number] : 1995 Acct:[id number] Age/Sex: 29 / F ADM Date: 5 Loc: 1S Room: [address] [place] [address] Type: ADM IN Attending Dr: Dashawn Moreno [...] Sunshine M.D. 11/15/2024 9:53 AM Dictation Location: [place] [address] Transcribed By: [facility] 11/15/24 0953 Dictated By: Julio Sunshine DO 11/15/24 0953 Signed By: 11/15/[address] [facility] XR hand RT 2Von 11-15-2024 XR hand RT 2V [facility] [address] [place] [address] [place] [address] XRay Report Signed Patient: Barbra Claros MR#: [id number] : 1995 Acct:[id number] Age/Sex: 29 / F ADM Date: 11/14/24 Loc: Room: [address] [place] [address] Type: ADM IN Attending Dr: Dashawn Moreno [...] Sunshine M.D. 11/15/2024 9:53 AM Dictation Location: [place] [address] Transcribed By: [facility] 11/15/24 0953 Dictated By: Julio Sunshine DO 11/15/24 0953 Signed By: 11/15/24 0953 Normal [facility] Alanine aminotransferase [En zymatic activity/volume] in Serum or PlasmaOrdered By: Ameya Salguero on 11-14-2024 ALT [Catalytic activity/Vol] Alanine aminotransferase [Enzymatic activity/volume] in Serum or Plasma [address] [place] [address] ALT [Catalytic activity/Vol] 36 U/L Normal [address] Comment on above: Performed By: #### U HCG, ADDONUAPLUS #### [address] Albumin [Mass/volume] in Ser um or Plasma by Bromocresol green (BCG) dye binding methoOrdered By: Ameya Salguero on 11-14-2024 Albumin BCG dye [Mass/Vol] Albumin [Mass/volume] in Serum or Plasma by Bromocresol green (BCG) dye binding metho 3.5-5.7 [facility] Albumin BCG dye [Mass/Vol] 4.3 g/dL 3.5-5.7 [facility] Alkaline phosphatase [Enzyma tic activity/volume] in Serum or PlasmaOrdered By: Ameya Salguero on 11-14-2024 ALP [Catalytic activity/Vol] Alkaline phosphatase [Enzymatic activity/volume] in Serum or Plasma 34-104 [facility] ALP [Catalytic activity/Vol] 54 U/L Normal 34-104 [facility] Comment on above: Performed By: #### U HCG, ADDONUAPLUS #### [facility] [address] Amphetamine Screen Ql (U)Ord ered By: Ameya Salguero on 11-14-2024 Amphetamines Ql (U) Amphetamines screen Negativ e [facility] Amphetamines Ql (U) Negative Negative [facility] Appearance of UrineOrdered B y: Ameya Salguero on 11-14-2024 Appearance (U) Urine appearance Clear [facility] Appearance (U) Clear Normal Clear [facility] Comment on above: Order Comment: Name Collection Type:: Clean-Voided Midstream Performed By: #### U HCG, URDS, ADDONUAPLUS #### [facility] [address] [place] [address] [place] Aspartate aminotransferase [ Enzymatic activity/volume] in Serum or PlasmaOrdered By: Ameya Salguero on 11-14-2024 AST [Catalytic activity/Vol] Aspartate aminotransferase [Enzymatic activity/volume] in Serum or Plasma 13-39 [facility] AST [Catalytic activity/Vol] 36 U/L Normal 13-39 [facility] Comment on above: Performed By: #### U HCG, ADDONUAPLUS #### [facility] [address] [place] [address] [place] Bacteria [Presence] in Urine by AutomatedOrdered By: Ameya Salguero on 11-14-2024 Bacteria Auto Ql (U) Bacteria [Presence] in Urine by Automated None Seen [facility] Bacteria Auto Ql (U) None seen [HPF] None Seen [facility] Barbiturates [Presence] in U rine by Screen methodOrdered By: Ameya Salguero on 11-14-2024 Barbiturates Screen Ql (U) Barbiturates [Presence] in Urine by Screen method Negative [facility] Barbiturates Screen Ql (U) Negative Negative [facility] Basophils Auto (Bld) [#/Vol] Ordered By: Ameya Salguero on 11-14-2024 Basophils (Bld) [#/Vol] Automated basophil count 0.0-0.2 [facility] Basophils [#/volume] in Bloo d by Automated countOrdered By: Ameya Salguero on 11-14-2024 Basophils (Bld) [#/Vol] 0.0 10*3/uL Normal 0.0-0.2 [facility] Comment on above: Result Comment: PERF ORMED BY: [place] [address] PATHOLOGIST [employer] SUPER[employer]OR AMBER HENNING M.D. Performed By: #### U HCG, ADDONUAPLUS #### [facility] [address] [place] [address] Basophils/100 WBC Auto (Bld) Ordered By: Ameya Salguero on 11-14-2024 Basophils/100 WBC (Bld) Automated basophil % . [facility] Basophils/100 leukocytes in Blood by Automated countOrdered By: Ameya Salguero on 11-14-2024 Basophils/100 WBC (Bld) 0.4 % Normal . [facility] Comment on above: Performed By: #### U HCG, ADDONUAPLUS #### [facility] [address] [place] [address] Benzodiazepines Screen Ql (U )Ordered By: Ameya Salguero on 11-14-2024 Benzodiazepines Ql (U) Benzodiazepines [Presence] in Urine by Screen method Negative [facility] Benzodiazepines Ql (U) Negative Negative [facility] Benzoylecgonine [Presence] i n Urine by Screen methodOrdered By: Ameya Salguero on 11-14-2024 Benzoylecgonine Screen Ql (U) Benzoylecgonine [Presence] in Urine by Screen method Negative [facility] Benzoylecgonine Screen Ql (U) Negative Negative [facility] Bilirubin Test strip Ql (U)O rdered By: Ameya Salguero on 11-14-2024 Bilirubin Ql (U) Bilirubin.total [Presence] in Urine by Test strip Negative [facility] Bilirubin Ql (U) Negative Negative [facility] Bilirubin.total [Mass/volume ] in Serum or PlasmaOrdered By: Ameya Salguero on 11-14-2024 Bilirubin [Mass/Vol] Bilirubin.total [Mass/volume] in Serum or Plasma Low 0.3-1.0 [facility] Bilirubin [Mass/Vol] 0.2 mg/dL Low 0.3-1.0 [facility] Comment on above: Performed By: #### U HCG, ADDONUAPLUS #### [facility] [address] [place] [address] [place] Calcium [Mass/volume] in Ser um or PlasmaOrdered By: Ameya Salguero on 11-14-2024 Calcium [Mass/Vol] Calcium [Mass/volume ] in Serum or Plasma 8.6-10.3 [facility] Calcium [Mass/Vol] 8.9 mg/dL Normal 8.6-10.3 [facility] Comment on above: Performed By: #### U HCG, ADDONUAPLUS #### [facility] [address] [place] [address] [place] Cannabinoids [Presence] in U rine by Screen methodOrdered By: Ameya Salguero on 11-14-2024 Cannabinoids Screen Ql (U) Cannabinoids [Presence] in Urine by Screen method High Negative [facility] Comment on above: These are unconfirme d results and should not be used for legal purposes. Drug Cut-Off Concentration: AMPH 1000 ng/mL FIONA 200 ng/mL KIMMY 200 ng/mL COCM 300 ng/mL OP 300 ng/mL PCP 25 ng/mL THC 20 ng/mL Cannabinoids Screen Ql (U) Positive High Negative [facility] Comment on above: These are unconfirme d [...] l [Moles/volume] in Serum or Plasma 21.0-31.0 [facility] CO2 [Moles/Vol] 27.8 mmol/L Normal 21.0-31.0 [facility] Comment on above: Performed By: #### U HCG, ADDONUAPLUS #### [facility] [address] [place] [address] [place] Chloride [Moles/volume] in S karla or PlasmaOrdered By: Ameya Salguero on 11-14-2024 Chloride [Moles/Vol] Chloride [Moles/vol ume] in Serum or Plasma 98-107 [facility] Chloride [Moles/Vol] 105 mmol/L Normal 98-107 [facility] Comment on above: Performed By: #### U HCG, ADDONUAPLUS #### [facility] [address] [place] [address] [place] Cholesterol [Mass/volume] in Serum or PlasmaOrdered By: Ameya Salguero on 11-14-2024 Cholesterol [Mass/Vol] Cholesterol [Mass/volume] in Serum or Plasma 140-200 [facility] Comment on above: Chol less than 200 m g/dl low riskChol 201-239 mg/dl borderline riskChol 240 mg/dl and greater high risk Cholesterol [Mass/Vol] 167 mg/dL Normal 140-200 [facility] Comment on above: Chol less than 200 m g/dl low riskChol 201-239 mg/dl borderline riskChol 240 mg/dl and greater high risk Result Comment: Chol less than 200 mg/dl low risk Chol 201-239 mg/dl borderline risk Chol 240 mg/dl and greater high risk Performed By: #### U HCG, ADDONUAPLUS #### [facility] [address] [place] [id number] [place] Cholesterol in HDL [Mass/vol ume] in Serum or PlasmaOrdered By: Ameya Salguero on 11-14-2024 Cholesterol in HDL [Mass/Vol] Serum or plasma high density lipoprotein (HDL) cholesterol measurement 23- [facility] Comment on above: HDL CHOL ATP-III CLA SSIFICATION Cardiovascular RiskHDL > or equal to 60 mg/dL LOWHDL < 40 mg/dL HIGH Cholesterol in HDL [Mass/Vol] 58 mg/dL Normal 23-92 [facility] Comment on above: HDL CHOL ATP-III CLA SSIFICATION Cardiovascular RiskHDL > or equal to 60 mg/dL LOWHDL < 40 mg/dL HIGH Result Comment: HDL CHOL ATP-III CLASSIFICATION Cardiovascular Risk HDL > or equal to 60 mg/dL LOW HDL < 40 mg/dL HIGH Performed By: #### U HCG, ADDONUAPLUS #### [facility] [address] Cholesterol in LDL Calc [Mas s/Vol]Ordered By: Ameya Salguero on 11-14-2024 Cholesterol in LDL [Mass/Vol] Cholesterol in LDL [Mass/volume] in Serum or Plasma by calculation 0 [facility] Comment on above: LDL ATP III CLASSIFI CATIONLDL less than 100 mg/dL OptimalLDL 100-129 mg/dL Near or above optimalLDL 130-159 mg/dL Borderline highLDL 160-189 mg/dL HighLDL greater than 189 mg/dL Very high Cholesterol in LDL [Mass/Vol] 98 mg/dL 0-100 [facility] Comment on above: LDL ATP III CLASSIFI CATIONLDL less than 100 mg/dL OptimalLDL 100-129 mg/dL Near or above optimalLDL 130-159 mg/dL Borderline highLDL 160-189 mg/dL HighLDL greater than 189 mg/dL Very high Cholesterol in VLDL Calc [Ma ss/Vol]Ordered By: Ameya Salguero on 11-14-2024 Cholesterol in VLDL [Mass/Vol] Cholesterol in VLDL [Mass/volume] in Serum or Plasma by calculation [facility] Cholesterol in VLDL [Mass/Vol] 11 mg/dL [facility] Color Auto (U)Ordered By: Ela Salguero on 11-14-2024 Color (U) Color of Urine by Auto Yellow [facility] Color of Urine by AutoOrdere d By: Ameya Salguero on 11-14-2024 Color (U) Yellow Normal Yellow [facility] Comment on above: Order Comment: Name Collection Type:: Clean-Voided Midstream Performed By: #### U HCG, URDS, ADDONUAPLUS #### [address] Complete Blood Count Auto Di ffon 11-14-2024 Mean Corpuscular HGB Conc 33.9 g/dL Normal 32.0-35.0 [facility] Comment on above: Performed By: #### U HCG, ADDONUAPLUS #### [place] [address] [place] Monocytes/100 WBC (Bld) 18.51 % Normal 0.00-20.00 [facility] Comment on above: Performed By: #### U HCG, ADDONUAPLUS #### [address] NRBC% 0.1 /100{WBC} Normal 0-0.5 [facility] Comment on above: Performed By: #### U HCG, ADDONUAPLUS #### [address] Comprehensive Metabolic Pane blaine 11-14-2024 Albumin [Mass/Vol] 4.3 g/dL Normal 3.5-5.7 [facility] Comment on above: Performed By: #### U HCG, ADDONUAPLUS #### [place] [address] [place] Creatinine Clr Calc Pharmacy 142.40 Normal [facility] Comment on above: Result Comment: PERF ORMED BY: [place] [address] PATHOLOGIST [employer] SUPER[employer]OR AMBER HENNING M.D. Performed By: #### U HCG, ADDONUAPLUS #### [place] [address] [place] GFR/1.73 sq M.predicted MDRD (S/P/Bld) [Vol rate/Area] mL/min/{1.73_m2} Normal [facility] Comment on above: Performed By: #### U HCG, ADDONUAPLUS #### [place] [address] [place] Creatinine [Mass/volume] in Serum or PlasmaOrdered By: Ameya Salguero on 11-14-2024 Creatinine [Mass/Vol] Creatinine [Mass/v olume] in Serum or Plasma Low 0.60-1.20 [facility] Creatinine [Mass/Vol] 0.54 mg/dL Low 0.60-1.20 [facility] Comment on above: Performed By: #### U HCG, ADDONUAPLUS #### [address] Dipstick and Microscopicon 0 11-14-2024 Bacteria,Urine None Seen Normal None Seen [facility] Comment on above: Order Comment: Name Collection Type:: Clean-Voided Midstream Performed By: #### U HCG, URDS, ADDONUAPLUS #### [address] Bilirubin,Urine Negative Normal Negative [facility] Comment on above: Order Comment: Name Collection Type:: Clean-Voided Midstream Performed By: #### U HCG, URDS, ADDONUAPLUS #### [address] Glucose Ql (U) Normal Normal Normal [facility] Comment on above: Order Comment: Name Collection Type:: Clean-Voided Midstream Performed By: #### U HCG, URDS, ADDONUAPLUS #### [address] Hyaline Casts,Urine None Normal 0-8 [facility] Comment on above: Order Comment: Name Collection Type:: Clean-Voided Midstream Performed By: #### U HCG, URDS, ADDONUAPLUS #### [place] [address] [place] Mucus,Urine 1+ Critically abnormal [facility] Comment on above: Order Comment: Name Collection Type:: Clean-Voided Midstream Performed By: #### U HCG, URDS, ADDONUAPLUS #### [address] Nitrite,Urine Negative Normal Negative [facility] Comment on above: Order Comment: Name Collection Type:: Clean-Voided Midstream Performed By: #### U HCG, URDS, ADDONUAPLUS #### [address] Occult Blood,Urine Negative Normal Negative [facility] Comment on above: Order Comment: Name Collection Type:: Clean-Voided Midstream Performed By: #### U HCG, URDS, ADDONUAPLUS #### [address] RBC,Urine 3-4 Normal 0-4 [facility] Comment on above: Order Comment: Name Collection Type:: Clean-Voided Midstream Performed By: #### U HCG, URDS, ADDONUAPLUS #### [address] Specificy [place],Urine 1.031 High 1.001-1.030 [facility] Comment on above: Order Comment: Name Collection Type:: Clean-Voided Midstream Performed By: #### U HCG, URDS, ADDONUAPLUS #### [address] Squamous Epithelial Cell,Urine 5-9 High 0-2 [facility] Comment on above: Order Comment: Name Collection Type:: Clean-Voided Midstream Performed By: #### U HCG, URDS, ADDONUAPLUS #### [address] Urobilinogen,Urine 2 mg/dL High Normal [facility] Comment on above: Order Comment: Name Collection Type:: Clean-Voided Midstream Performed By: #### U HCG, URDS, ADDONUAPLUS #### [address] WBC,Urine 1-2 Normal 0-4 [facility] Comment on above: Order Comment: Name Collection Type:: Clean-Voided Midstream Performed By: #### U HCG, URDS, ADDONUAPLUS #### [address] Drug Screen,Urineon 11-15-19 25 Amphetamine Screen,Urine Negative Normal Negative [facility] Comment on above: Performed By: #### U HCG, URDS, ADDONUAPLUS #### [address] Barbiturate Screen,Urine Negative Normal Negative [facility] Comment on above: Performed By: #### U HCG, URDS, ADDONUAPLUS #### [address] Benzodiazepines Screen,Urine Negative Normal Negative [facility] Comment on above: Performed By: #### U HCG, URDS, ADDONUAPLUS #### [address] Cannabinoid Screen,Urine Positive High Negative [facility] Comment on above: Result Comment: Thes e are unconfirmed results and should not be used for legal purposes. Drug Cut-Off Concentration: AMPH 1000 ng/mL FIONA 200 ng/mL KIMMY 200 ng/mL COCM 300 ng/mL OP 300 ng/mL PCP 25 ng/mL THC 20 ng/mL PERFORMED BY: [place] [address] PATHOLOGIST [employer] SUPER[employer] AMBER HENNING M.D. Performed By: #### U HCG, URDS, ADDONUAPLUS #### [address] Cocaine Screen,Urine Negative Normal Negative [facility] Comment on above: Performed By: #### U HCG, URDS, ADDONUAPLUS #### [address] Opiate Screen,Urine Negative Normal Negative [facility] Comment on above: Performed By: #### U HCG, URDS, ADDONUAPLUS #### [address] Phencyclidine Screen,Urine Negative Normal Negative [facility] Comment on above: Performed By: #### U HCG, URDS, ADDONUAPLUS #### [address] Eosinophils Auto (Bld) [#/Vo l]Ordered By: Ameya Salguero on 11-14-2024 Eosinophils (Bld) [#/Vol] Automated eosinophil count 0.0-0.45 [facility] Eosinophils [#/volume] in Bl ood by Automated countOrdered By: Ameya Salguero on 11-14-2024 Eosinophils (Bld) [#/Vol] 0.0 10*3/uL Normal 0.0-0.45 [facility] Comment on above: Performed By: #### U HCG, ADDONUAPLUS #### [facility] [address] [place] [address] Eosinophils/100 WBC Auto (Bl d)Ordered By: Ameya Salguero on 11-14-2024 Eosinophils/100 WBC (Bld) Automated eosinophil % . [facility] Eosinophils/100 leukocytes i n Blood by Automated countOrdered By: Ameya Salguero on 11-14-2024 Eosinophils/100 WBC (Bld) 0.2 % Normal . [facility] Comment on above: Performed By: #### U HCG, ADDONUAPLUS #### [facility] [address] [place] [address] Epithelial cells.squamous [# /area] in Urine sediment by Automated countOrdered By: Ameya Salguero on 11-14-2024 Epithelial cells.squamous Auto (Urine sed) [#/Area] Epithelial cells.squamous [#/area] in Urine sediment by Automated count High 0-2 [facility] Epithelial cells.squamous Auto (Urine sed) [#/Area] 5-9 [HPF] High 0-2 [facility] Erythrocyte distribution wid th Auto (RBC) [Ratio]Ordered By: Ameya Salguero on 11-14-2024 Erythrocyte distribution width (RBC) [Ratio] Erythrocyte distribution width [Ratio] by Automated count 11.9-15.3 [facility] Erythrocyte distribution wid th [Ratio] by Automated countOrdered By: Ameya Salguero on 11-14-2024 Erythrocyte distribution width (RBC) [Ratio] 14.5 % Normal 11.9-15.3 [facility] Comment on above: Performed By: #### U HCG, ADDONUAPLUS #### [facility] [address] [place] [address] [place] Erythrocytes [#/area] in Uri ne sediment by Automated countOrdered By: Ameya Salguero on 11-14-2024 RBC Auto (Urine sed) [#/Area] Erythrocytes [#/area] in Urine sediment by Automated count 0-4 [facility] RBC Auto (Urine sed) [#/Area] 3-4 [HPF] 0-4 [facility] Erythrocytes [#/volume] in B lood by Automated countOrdered By: Ameya Salguero on 11-14-2024 RBC (Bld) [#/Vol] 4.17 10*6/uL Normal 3.60-5.[address] [facility] Comment on above: Performed By: #### U HCG, ADDONUAPLUS #### [facility] [address] [place] [address] Ethanol [Mass/volume] in Ser um or PlasmaOrdered By: Ameya Salguero on 11-14-2024 Ethanol [Mass/Vol] Ethanol [Mass/volume ] in Serum or Plasma [facility] Comment on above: Test not performed Ethanol [Mass/Vol] mg/dL Normal [facility] Comment on above: Performed By: #### U HCG, ADDONUAPLUS #### [facility] [address] [place] [address] Ethyl Alcohol Profileon 10-18 Percent Ethanol Not performed Normal [facility] Comment on above: Result Comment: PERF ORMED BY: [place] [address] PATHOLOGIST [employer]FF[employer] SUPERVISOR AMBER HENNING M.D. Performed By: #### U HCG, ADDONUAPLUS #### [facility] [address] [place] [address] Globulin Calc (S) [Mass/Vol] Ordered By: Ameya Salguero on 11-14-2024 Globulin (S) [Mass/Vol] Serum globulin measurement by calculation (mass/volume) [facility] Glucose [Mass/volume] in Ser um or PlasmaOrdered By: Ameya Salguero on 11-14-2024 Glucose [Mass/Vol] Glucose [Mass/volume ] in Serum or Plasma 70-100 [facility] Comment on above: ADA recommended refe rence rangeRandom Glucose Reference Range is dependent on time and content of last meal. Glucose of more than 200 mg/dL in a nonstressed, ambulatory subject supports the diagnosis of Diabetes Mellitus. Glucose [Mass/Vol] 94 mg/dL Normal 70-100 [facility] Comment on above: ADA recommended refe rence rangeRandom Glucose Reference Range is dependent on time and content of last meal. Glucose of more than 200 mg/dL in a nonstressed, ambulatory subject supports the diagnosis of Diabetes Mellitus. Result Comment: Dante om Glucose Reference Range is dependent on time and content of last meal. Glucose of more than 200 mg/dL in a nonstressed, ambulatory subject supports the diagnosis of Diabetes Mellitus. ADA recommended reference range Performed By: #### U HCG, ADDONUAPLUS #### [facility] [address] Glucose [Mass/volume] in Uri ne by Test stripOrdered By: Ameya Salguero on 11-14-2024 Glucose Test strip (U) [Mass/Vol] Glucose [Mass/volume] in Urine by Test strip Normal [facility] Glucose Test strip (U) [Mass/Vol] Normal mg/dL Normal [facility] HCG ( test) IA.rapi d Ql (U)Ordered By: Ameya Salguero on 11-14-2024 HCG ( test) Ql (U) Urine human chorionic gonadotropin (hCG) detection by immunoassay [facility] HCG ( test) Ql (U) Negative [facility] HCG,Urineon 11-14-2024 Beta HCG ( test) Ql (U) Negative Normal [facility] Comment on above: Order Comment: Name Collection Type:: Clean-Voided Midstream Result Comment: PERF ORMED BY: [place] [address] PATHOLOGIST [employer] SUPERVISOR AMBER HENNING M.D. Performed By: #### U HCG, URDS, ADDONUAPLUS #### [facility] [address] [place] [address] Hematocrit Auto (Bld) [Volum e fraction]Ordered By: Ameya Salguero on 11-14-2024 Hematocrit (Bld) [Volume fraction] Hematocrit [Volume Fraction] of Blood by Automated count 34.0-46.4 [facility] Hematocrit [Volume Fraction] of Blood by Automated countOrdered By: Ameya Salguero on 11-14-2024 Hematocrit (Bld) [Volume fraction] 35.9 % Normal 34.0-46.4 [facility] Comment on above: Performed By: #### U HCG, ADDONUAPLUS #### [address] Hemoglobin Test strip Ql (U) Ordered By: Ameya Salguero on 11-14-2024 Hemoglobin Ql (U) Hemoglobin [Presence ] in Urine by Test strip Negative [facility] Hemoglobin Ql (U) Negative Negative [facility] Hemoglobin [Mass/volume] in BloodOrdered By: Ameya Salguero on 11-14-2024 Hemoglobin (Bld) [Mass/Vol] Hemoglobin [Mass/volume] in Blood 11.8-15.4 [facility] Hemoglobin (Bld) [Mass/Vol] 12.2 g/dL Normal 11.8-15.4 [facility] Comment on above: Performed By: #### U HCG, ADDONUAPLUS #### [address] Hyaline casts [#/area] in Ur ine sediment by Automated countOrdered By: Ameya Salguero on 11-14-2024 Hyaline casts Auto (Urine sed) [#/Area] Hyaline casts [#/area] in Urine sediment by Automated count 0-8 [facility] Hyaline casts Auto (Urine sed) [#/Area] None [LPF] 0-8 [facility] Ketones Test strip Ql (U)Ord ered By: Ameya Salguero on 11-14-2024 Ketones Ql (U) Ketones [Presence] i n Urine by Test strip Negative [facility] Ketones [Presence] in Urine by Test stripOrdered By: Ameya Salguero on 11-14-2024 Ketones Ql (U) Negative Normal Negative [facility] Comment on above: Order Comment: Name Collection Type:: Clean-Voided Midstream Performed By: #### U HCG, URDS, ADDONUAPLUS #### [facility] [address] [place] [address] [place] Leukocyte esterase [Presence ] in Urine by Test stripOrdered By: Ameya Salguero on 11-14-2024 Leukocyte esterase Test strip Ql (U) Leukocyte esterase [Presence] in Urine by Test strip Negative [facility] Leukocyte esterase Test strip Ql (U) Negative Normal Negative [facility] Comment on above: Order Comment: Name Collection Type:: Clean-Voided Midstream Performed By: #### U HCG, URDS, ADDONUAPLUS #### [facility] [address] [place] [address] [place] Leukocytes [#/area] in Urine sediment by Automated countOrdered By: Ameya Salguero on 11-14-2024 WBC Auto (Urine sed) [#/Area] Leukocytes [#/area] in Urine sediment by Automated count 0-4 [facility] WBC Auto (Urine sed) [#/Area] 1-2 [HPF] 0-4 [facility] Leukocytes [#/volume] correc arminda for nucleated erythrocytes in Blood by Automated counOrdered By: Ameya Salguero on 11-14-2024 WBC corrected for nucl RBC Auto (Bld) [#/Vol] Leukocytes [#/volume] corrected for nucleated erythrocytes in Blood by Automated coun 3.8-11.6 [facility] WBC corrected for nucl RBC Auto (Bld) [#/Vol] 7.1 10*3/uL 3.8-11.6 [facility] Leukocytes [#/volume] in Blo od by Automated countOrdered By: Ameya Salguero on 11-14-2024 WBC (Bld) [#/Vol] 7.1 10*3/uL Normal 3.8-11.6 [facility] Comment on above: Performed By: #### U HCG, ADDONUAPLUS #### [facility] [address] [place] [id number] [place] Lipid Panelon 11-14-2024 LDL Cholesterol,Calculate d 98 mg/dL Normal 0-100 [facility] Comment on above: Result Comment: LDL ATP III CLASSIFICATION LDL less than 100 mg/dL Optimal LDL 100-129 mg/dL Near or above optimal LDL 130-159 mg/dL Borderline high LDL 160-189 mg/dL High LDL greater than 189 mg/dL Very high Performed By: #### U HCG, ADDONUAPLUS #### [address] Triglyceride w/Reflex 56 mg/dL Normal 0-149 [facility] Comment on above: Result Comment: TRIG ATP III CLASSIFICATION TRIG less than 150 mg/dL Normal TRIG 150-199 mg/dL Borderline high TRIG 200-500 mg/dL High TRIG greater than 500 mg/dL Very high Standard traceable to the Center for Disease Conrtrol and Prevention (CDC) test method. Performed By: #### U HCG, ADDONUAPLUS #### [address] VLDL CHOLESTEROL 11 mg/dL Normal [facility] Comment on above: Performed By: #### U HCG, ADDONUAPLUS #### [address] Lymphocytes Auto (Bld) [#/Vo l]Ordered By: Ameya Salguero on 11-14-2024 Lymphocytes (Bld) [#/Vol] Lymphocytes [#/volume] in Blood by Automated count 1.00-4.8 [facility] Lymphocytes [#/volume] in Bl ood by Automated countOrdered By: Ameya Salguero on 11-14-2024 Lymphocytes (Bld) [#/Vol] 2.8 10*3/uL Normal 1.00-4.8 [facility] Comment on above: Performed By: #### U HCG, ADDONUAPLUS #### [address] Lymphocytes/100 WBC Auto (Bl d)Ordered By: Ameya Salguero on 11-14-2024 Lymphocytes/100 WBC (Bld) Lymphocytes/100 leukocytes in Blood by Automated count . [facility] Lymphocytes/100 leukocytes i n Blood by Automated countOrdered By: Ameya Salguero on 11-14-2024 Lymphocytes/100 WBC (Bld) 39.7 % Normal . [facility] Comment on above: Performed By: #### U HCG, ADDONUAPLUS #### [address] MCH Auto (RBC) [Entitic mass ]Ordered By: Ameya Salguero on 11-14-2024 MCH (RBC) [Entitic mass] MCH [Entitic mass] by Automated count 24.7-34.3 [facility] MCH [Entitic mass] by Automa arminda countOrdered By: Ameya Salguero on 11-14-2024 MCH (RBC) [Entitic mass] 29.2 pg Normal 24.7-34.3 [facility] Comment on above: Performed By: #### U HCG, ADDONUAPLUS #### [facility] [address] [place] [address] MCHC Auto (RBC) [Mass/Vol]Or dered By: Ameya Salguero on 11-14-2024 MCHC (RBC) [Mass/Vol] MCHC [Mass/volume] by Automated count 32.0-35.0 [facility] MCHC (RBC) [Mass/Vol] 33.9 g/dL 32.0-35.0 [facility] MCV Auto (RBC) [Entitic vol] Ordered By: Ameya Salguero on 11-14-2024 MCV (RBC) [Entitic vol] MCV [Entitic volume] by Automated count 80-100 [facility] MCV [Entitic volume] by Auto mated countOrdered By: Ameya Salguero on 11-14-2024 MCV (RBC) [Entitic vol] 86.2 fL Normal 80-100 [facility] Comment on above: Performed By: #### U HCG, ADDONUAPLUS #### [facility] [address] [place] [address] Monocyte distribution width [Entitic volume] in Blood by AutomatedOrdered By: Ameya Salguero on 11-14-2024 Monocyte distribution width Auto (Bld) [Entitic vol] Monocyte distribution width [Entitic volume] in Blood by Automated 0.00-20.00 [facility] Monocyte distribution width Auto (Bld) [Entitic vol] 18.51 % 0.00-20.00 [facility] Monocytes Auto (Bld) [#/Vol] Ordered By: Ameya Salguero on 11-14-2024 Monocytes (Bld) [#/Vol] Automated blood monocyte count 0.0-0.8 [facility] Monocytes [#/volume] in Bloo d by Automated countOrdered By: Ameya Salguero on 11-14-2024 Monocytes (Bld) [#/Vol] 0.5 10*3/uL Normal 0.0-0.8 [facility] Comment on above: Performed By: #### U HCG, ADDONUAPLUS #### [facility] [address] [place] [address] [place] Monocytes/100 WBC Auto (Bld) Ordered By: Ameya Salguero on 11-14-2024 Monocytes/100 WBC (Bld) Automated monocyte % . [facility] Monocytes/100 leukocytes in Blood by Automated countOrdered By: Ameya Salguero on 11-14-2024 Monocytes/100 WBC (Bld) 7.3 % Normal . [facility] Comment on above: Performed By: #### U HCG, ADDONUAPLUS #### [facility] [address] [place] [address] Mucus [Presence] in Urine by AutomatedOrdered By: Ameya Salguero on 11-14-2024 Mucus Auto Ql (U) Mucus [Presence] in Urine by Automated Abnormal [facility] Mucus Auto Ql (U) 1+ [LPF] Abnormal [facility] Neutrophils Auto (Bld) [#/Vo l]Ordered By: Ameya Salguero on 11-14-2024 Neutrophils (Bld) [#/Vol] Neutrophils [#/volume] in Blood by Automated count 1.8-7.7 [facility] Neutrophils [#/volume] in Bl ood by Automated countOrdered By: Ameya Salguero on 11-14-2024 Neutrophils (Bld) [#/Vol] 3.7 10*3/uL Normal 1.8-7.7 [facility] Comment on above: Performed By: #### U HCG, ADDONUAPLUS #### [facility] [address] [place] [address] [place] Neutrophils/100 WBC Auto (Bl d)Ordered By: Ameya Salguero on 11-14-2024 Neutrophils/100 WBC (Bld) Automated neutrophil % . [facility] Neutrophils/100 leukocytes i n Blood by Automated countOrdered By: Ameya Salguero on 11-14-2024 Neutrophils/100 WBC (Bld) 52.4 % Normal . [facility] Comment on above: Performed By: #### U HCG, ADDONUAPLUS #### [facility] [address] Nitrite Test strip Ql (U)Ord ered By: Ameya Salguero on 11-14-2024 Nitrite Ql (U) Nitrite [Presence] i n Urine by Test strip Negative [facility] Nitrite Ql (U) Negative Negative [facility] No Panel InformationOrdered By: Ameya Salguero on 11-14-2024 Estimated GFR (CKD-EPI) > 60.0 mL/Min [facility] Creatinine Clearance (Chem 142.40 [facility] Nucleated erythrocytes [Pres ence] in Blood by Automated countOrdered By: Ameya Salguero on 11-14-2024 Nucleated RBC Auto Ql (Bld) Nucleated erythrocytes [Presence] in Blood by Automated count 0-0.5 [facility] Nucleated RBC Auto Ql (Bld) 0.1 /100{WBC} 0-0.5 [facility] Opiates [Presence] in Urine by Screen methodOrdered By: Ameya Salguero on 11-14-2024 Opiates Screen Ql (U) Opiates [Presence] in Urine by Screen method Negative [facility] Opiates Screen Ql (U) Negative Negative [facility] Phencyclidine Screen Ql (U)O rdered By: Ameya Salguero on 11-14-2024 Phencyclidine Ql (U) Phencyclidine [Pres ence] in Urine by Screen method Negative [facility] Phencyclidine Ql (U) Negative Negative [facility] Platelet mean volume Auto (B ld) [Entitic vol]Ordered By: Ameya Salguero on 11-14-2024 Platelet mean volume (Bld) [Entitic vol] Platelet mean volume [Entitic volume] in Blood by Automated count 6.3-10.7 [facility] Platelet mean volume [Entiti c volume] in Blood by Automated countOrdered By: Ameya Salguero on 11-14-2024 Platelet mean volume (Bld) [Entitic vol] 7.7 fL Normal 6.3-10.7 [facility] Comment on above: Performed By: #### U HCG, ADDONUAPLUS #### [facility] [address] Platelets Auto (Bld) [#/Vol] Ordered By: Ameya Salguero on 11-14-2024 Platelets (Bld) [#/Vol] Platelets [#/volume] in Blood by Automated count 150-450 [facility] Platelets [#/volume] in Bloo d by Automated countOrdered By: Ameya Salguero on 11-14-2024 Platelets (Bld) [#/Vol] 231 10*3/uL Normal 150-450 [facility] Comment on above: Performed By: #### U HCG, ADDONUAPLUS #### [address] Potassium [Moles/volume] in Serum or PlasmaOrdered By: Ameya Salguero on 11-14-2024 Potassium [Moles/Vol] Potassium [Moles/v olume] in Serum or Plasma 3.5-5.1 [facility] Potassium [Moles/Vol] 3.7 mmol/L Normal 3.5-5.1 [facility] Comment on above: Performed By: #### U HCG, ADDONUAPLUS #### [address] Protein Test strip (U) [Mass /Vol]Ordered By: Ameya Salguero on 11-14-2024 Protein (U) [Mass/Vol] Protein [Mass/volume] in Urine by Test strip High Negative [facility] Protein [Mass/volume] in Ser um or PlasmaOrdered By: Ameya Salguero on 11-14-2024 Protein [Mass/Vol] Protein [Mass/volume ] in Serum or Plasma 6.4-8.9 [facility] Protein [Mass/Vol] 7.1 g/dL Normal 6.4-8.9 [facility] Comment on above: Performed By: #### U HCG, ADDONUAPLUS #### [address] Protein [Mass/volume] in Uri ne by Test stripOrdered By: Ameya Salguero on 11-14-2024 Protein (U) [Mass/Vol] 20 mg/dL High Negative [facility] Comment on above: Order Comment: Name Collection Type:: Clean-Voided Midstream Performed By: #### U HCG, URDS, ADDONUAPLUS #### [facility] [address] [place] [address] RBC Auto (Bld) [#/Vol]Ordere d By: Ameya Salguero on 11-14-2024 RBC (Bld) [#/Vol] Erythrocytes [#/volu me] in Blood by Automated count 3.60-5.00 [facility] Serum globulin measurement b y calculation (mass/volume)Ordered By: Ameya Salguero on 11-14-2024 Globulin (S) [Mass/Vol] 2.8 g/dL Normal [facility] Comment on above: Performed By: #### U HCG, ADDONUAPLUS #### [facility] [address] [place] [address] Serum or plasma albumin/glob ulin mass ratioOrdered By: Ameya Salguero on 11-14-2024 Albumin/Globulin [Mass ratio] Serum or plasma albumin/globulin mass ratio [facility] Albumin/Globulin [Mass ratio] 1.5 {ratio} Normal [facility] Comment on above: Performed By: #### U HCG, ADDONUAPLUS #### [facility] [address] [place] [address] Serum or plasma anion gap de terminationOrdered By: Ameya Salguero on 11-14-2024 Anion gap [Moles/Vol] Serum or plasma an ion gap determination 6.0-15.0 [facility] Anion gap [Moles/Vol] 9.9 mmol/L Normal 6.0-15.0 [facility] Comment on above: Performed By: #### U HCG, ADDONUAPLUS #### [facility] [address] [place] [address] Serum or plasma ethanol alayna urement (mass/volume)Ordered By: Ameya Salguero on 11-14-2024 Ethanol [Mass/Vol] TNP [facility] Comment on above: Test not performed Serum or plasma total choles terol/high density lipoprotein (HDL) cholesterol mass ratOrdered By: Ameya Salguero on 11-14-2024 Cholesterol.total/Cho lesterol in HDL [Mass ratio] Serum or plasma total cholesterol/high density lipoprotein (HDL) cholesterol mass rat <5.0 [facility] Cholesterol.total/Cho lesterol in HDL [Mass ratio] 2.9 {ratio} Normal <5.0 [facility] Comment on above: Performed By: #### U HCG, ADDONUAPLUS #### [facility] [address] [place] [address] Sodium [Moles/volume] in Ser um or PlasmaOrdered By: Ameya Salguero on 11-14-2024 Sodium [Moles/Vol] Sodium [Moles/volume ] in Serum or Plasma 136-145 [facility] Sodium [Moles/Vol] 139 mmol/L Normal 136-145 [facility] Comment on above: Performed By: #### U HCG, ADDONUAPLUS #### [facility] [address] [place] [address] Specific gravity Test strip (U) [Rel density]Ordered By: Ameya Salguero on 11-14-2024 Specific gravity (U) [Rel density] Specific gravity of Urine by Test strip High 1.001-1.030 [facility] Specific gravity (U) [Rel density] 1.031 High 1.001-1.030 [facility] Thyroid Stim Hormone w/Rflxo n 11-14-2024 Thyroid Stim Hormone w/Rflx 2.22 u[iU]/mL Normal 0.45-5.33 [facility] Comment on above: Performed By: #### U HCG, ADDONUAPLUS #### [facility] [address] [place] [address] [place] Thyrotropin [Units/volume] i n Serum or PlasmaOrdered By: Ameya Salguero on 11-14-2024 TSH Qn Thyrotropin [Units/volume] in Serum or Plasma 0.45-5.33 [facility] TSH Qn 2.22 m[IU]/L 0.45-5.33 [facility] Triglyceride [Mass/volume] i n Serum or PlasmaOrdered By: Ameya Salgueor on 11-14-2024 Triglyceride [Mass/Vol] Triglyceride [Mass/volume] in Serum or Plasma 0-149 [facility] Comment on above: TRIG ATP III CLASSIF ICATIONTRIG less than 150 mg/dL NormalTRIG 150-199 mg/dL Borderline highTRIG 200-500 mg/dL High TRIG greater than 500 mg/dL Very highStandard traceable to the Center for Disease Conrtrol and Prevention (CDC) test method. Triglyceride [Mass/Vol] 56 mg/dL 0-149 [facility] Comment on above: TRIG ATP III CLASSIF ICATIONTRIG less than 150 mg/dL NormalTRIG 150-199 mg/dL Borderline highTRIG 200-500 mg/dL High TRIG greater than 500 mg/dL Very highStandard traceable to the Center for Disease Conrtrol and Prevention (CDC) test method. Urea nitrogen [Mass/volume] in Serum or PlasmaOrdered By: Ameya Salguero on 11-14-2024 Urea nitrogen [Mass/Vol] Urea nitrogen [Mass/volume] in Serum or Plasma 01-10 [facility] Urea nitrogen [Mass/Vol] 10 mg/dL Normal 01-10 [facility] Comment on above: Performed By: #### U HCG, ADDONUAPLUS #### [address] Urobilinogen Test strip (U) [Mass/Vol]Ordered By: Ameya Salguero on 11-14-2024 Urobilinogen (U) [Mass/Vol] Urobilinogen [Mass/volume] in Urine by Test strip High Normal [facility] Urobilinogen (U) [Mass/Vol] 2 mg/dL High Normal [facility] Vitamin D 25 Hydroxy Totalon 11-14-2024 Vitamin D 25 Hydroxy Total 8.5 ng/mL Low 30-100 [facility] Comment on above: Result Comment: CEM MIN D STATUS 25(OH)VITAMIN D RANGE (ng/mL) Deficient <20 Insufficient 20 to <30 Sufficient 30 to 100 Reference: Malou MF,Roly NC, Kassidy SHAH, et al. Evaluation,treatment, and prevention of vitamin D deficiency; an Endocrine Society clinical practice guideline. JCEM. 2010; 96(7):1911-30. PERFORMED BY: [facility] [address] [place] [address] PATHOLOGIST [employer]FF[employer] SUPERVISOR AMBER HENNING M.D. Performed By: #### U HCG, DAWIT #### [address] Vitamin D+Metabolites [Mass/ volume] in Serum or PlasmaOrdered By: Ameya Salguero on 11-14-2024 Vitamin D+Metabolites [Mass/Vol] Vitamin D+Metabolites [Mass/volume] in Serum or Plasma Low 30-100 [facility] Comment on above: VITAMIN D STATUS 25( OH)VITAMIN D RANGE (ng/mL) Deficient <20 Insufficient 20 to <30Sufficient 30 to 100Reference: Roly Trevino, Kassidy SHAH, et al. Evaluation,treatment, and prevention of vitamin D deficiency; an Endocrine Society clinical practice guideline. JCEM. 2010; 96(7):191-. Vitamin D+Metabolites [Mass/Vol] 8.5 ng/mL Low 30-100 [facility] Comment on above: VITAMIN D STATUS 25( [...] ] in Blood by Automated count 3.8-11.6 [facility] pH Test strip (U)Ordered By: Ameya Salguero on 11-14-2024 pH (U) pH of Urine by Test strip 5.0-9.0 [facility] pH of Urine by Test stripOrd ered By: Ameya Salguero on 11-14-2024 pH (U) 7.0 [pH] Normal 5.0-9.0 [facility] Comment on above: Order Comment: Name Collection Type:: Clean-Voided Midstream Performed By: #### U HCG, URDS, ADDONUAPLUS #### [facility] [address] ECG 12 lead ECGon 11-07-2024 ECG 12 lead ECG [facility] [place] [address] [place] [address] Electrocardiograph Report Signed Patient: Barbra Claros MR#: [id number] : 1995 Acct:[id number] Age/Sex: 29 / F ADM Date: 11/07/24 Loc: Room: [address] [place] [address] Type: ADM IN Attending Dr: Kit Gutierrez [...] Juarez MD 0 11/07/24 1739 Normal [facility] Alanine aminotransferase [En zymatic activity/volume] in Serum or PlasmaOrdered By: Duane Simons on 11-06-2024 ALT [Catalytic activity/Vol] Alanine aminotransferase [Enzymatic activity/volume] in Serum or Plasma [facility] ALT [Catalytic activity/Vol] 11 U/L Normal [facility] Comment on above: Performed By: #### U HCG, URDS, ADDONUAPLUS #### [facility] [address] [place], [place] [id number] [facility] Albumin [Mass/volume] in Ser um or Plasma by Bromocresol green (BCG) dye binding methoOrdered By: Duane Simons on 11-06-2024 Albumin BCG dye [Mass/Vol] Albumin [Mass/volume] in Serum or Plasma by Bromocresol green (BCG) dye binding metho 3.5-5.7 [facility] Albumin BCG dye [Mass/Vol] 4.5 g/dL 3.5-5.7 [facility] Alkaline phosphatase [Enzyma tic activity/volume] in Serum or PlasmaOrdered By: Duane Simons on 11-06-2024 ALP [Catalytic activity/Vol] Alkaline phosphatase [Enzymatic activity/volume] in Serum or Plasma 34-104 [facility] ALP [Catalytic activity/Vol] 52 U/L Normal 34-104 [facility] Comment on above: Performed By: #### U HCG, URDS, ADDONUAPLUS #### [facility] [address] [place] [address] Amphetamine Screen Ql (U)Ord ered By: Duane Simons on 11-06-2024 Amphetamines Ql (U) Amphetamines screen Negativ e [facility] Amphetamines Ql (U) Negative Negative [facility] Appearance of UrineOrdered B y: Duane Simons on 11-06-2024 Appearance (U) Urine appearance Clear [facility] Appearance (U) Clear Normal Clear [facility] Comment on above: Order Comment: Name Collection Type:: Clean-Voided Midstream Performed By: #### U HCG, ADDONUAPLUS #### [facility] [address] [place] [address] [place] Aspartate aminotransferase [ Enzymatic activity/volume] in Serum or PlasmaOrdered By: Duane Simons on 11-06-2024 AST [Catalytic activity/Vol] Aspartate aminotransferase [Enzymatic activity/volume] in Serum or Plasma 13-39 [facility] AST [Catalytic activity/Vol] 13 U/L Normal -39 [facility] Comment on above: Performed By: #### U HCG, URDS, ADDONUAPLUS #### [facility] [address] [place] [address] [place] Bacteria [Presence] in Urine by AutomatedOrdered By: Duane Simons on 11-06-2024 Bacteria Auto Ql (U) Bacteria [Presence] in Urine by Automated None Seen [facility] Bacteria Auto Ql (U) None seen [HPF] None Seen [facility] Barbiturates [Presence] in U rine by Screen methodOrdered By: Duane Simons on 11-06-2024 Barbiturates Screen Ql (U) Barbiturates [Presence] in Urine by Screen method Negative [facility] Barbiturates Screen Ql (U) Negative Negative [facility] Basophils Auto (Bld) [#/Vol] Ordered By: Duane Simons on 11-06-2024 Basophils (Bld) [#/Vol] Automated basophil count 0.0-0.2 [facility] Basophils [#/volume] in Bloo d by Automated countOrdered By: Duane Simons on 11-06-2024 Basophils (Bld) [#/Vol] 0.0 10*3/uL Normal 0.0-0.2 [facility] Comment on above: Result Comment: PERF ORMED BY: [facility] [address] [facility] [place] [address] PATHOLOGIST [employer] ZULEIMA ZHANG M.D. Performed By: #### U HCG, URDS, ADDONUAPLUS #### [facility] [address] [place] [address] [place] Basophils/100 WBC Auto (Bld) Ordered By: Duane Simons on 11-06-2024 Basophils/100 WBC (Bld) Automated basophil % . [facility] Basophils/100 leukocytes in Blood by Automated countOrdered By: Duane Simons on 11-06-2024 Basophils/100 WBC (Bld) 0.5 % Normal . [facility] Comment on above: Performed By: #### U HCG, URDS, ADDONUAPLUS #### [facility] [address] [place] [address] [place] Benzodiazepines Screen Ql (U )Ordered By: Duane Simons on 11-06-2024 Benzodiazepines Ql (U) Benzodiazepines [Presence] in Urine by Screen method Negative [facility] Benzodiazepines Ql (U) Negative Negative [facility] Benzoylecgonine [Presence] i n Urine by Screen methodOrdered By: Duane Simons on 11-06-2024 Benzoylecgonine Screen Ql (U) Benzoylecgonine [Presence] in Urine by Screen method Negative [facility] Benzoylecgonine Screen Ql (U) Negative Negative [facility] Bilirubin Test strip Ql (U)O rdered By: Duane Simons on 11-06-2024 Bilirubin Ql (U) Bilirubin.total [Presence] in Urine by Test strip Negative [facility] Bilirubin Ql (U) Negative Negative [facility] Bilirubin.total [Mass/volume ] in Serum or PlasmaOrdered By: Duane Simons on 11-06-2024 Bilirubin [Mass/Vol] Bilirubin.total [Mass/volume] in Serum or Plasma 0.3-1.0 [facility] Bilirubin [Mass/Vol] 0.3 mg/dL Normal 0.3-1.0 [facility] Comment on above: Performed By: #### U HCG, URDS, ADDONUAPLUS #### [facility] [address] Calcium [Mass/volume] in Ser um or PlasmaOrdered By: Duane Simons on 11-06-2024 Calcium [Mass/Vol] Calcium [Mass/volume ] in Serum or Plasma 8.6-10.3 [facility] Calcium [Mass/Vol] 9.1 mg/dL Normal 8.6-10.3 [facility] Comment on above: Performed By: #### U HCG, URDS, ADDONUAPLUS #### [facility] [address] Cannabinoids [Presence] in U rine by Screen methodOrdered By: Duane Simons on 11-06-2024 Cannabinoids Screen Ql (U) Cannabinoids [Presence] in Urine by Screen method High Negative [facility] Comment on above: These are unconfirme d results and should not be used for legal purposes. Drug Cut-Off Concentration: AMPH 1000 ng/mL FIONA 200 ng/mL KIMMY 200 ng/mL COCM 300 ng/mL OP 300 ng/mL PCP 25 ng/mL THC 20 ng/mL Cannabinoids Screen Ql (U) Positive High Negative [facility] Comment on above: These are unconfirme d [...] l [Moles/volume] in Serum or Plasma 21.0-31.0 [facility] CO2 [Moles/Vol] 27.1 mmol/L Normal 21.0-31.0 [facility] Comment on above: Performed By: #### U HCG, URDS, ADDONUAPLUS #### [facility] [address] [place] [address] [place] Chloride [Moles/volume] in S karla or PlasmaOrdered By: Duane Simons on 11-06-2024 Chloride [Moles/Vol] Chloride [Moles/vol ume] in Serum or Plasma 98-107 [facility] Chloride [Moles/Vol] 106 mmol/L Normal 98-107 [facility] Comment on above: Performed By: #### U HCG, URDS, ADDONUAPLUS #### [facility] [address] [place] [id number] [place] Cholesterol [Mass/volume] in Serum or PlasmaOrdered By: Kit Gutierrez on 11-06-2024 Cholesterol [Mass/Vol] Cholesterol [Mass/volume] in Serum or Plasma 140-200 [facility] Comment on above: Chol less than 200 m g/dl low riskChol 201-239 mg/dl borderline riskChol 240 mg/dl and greater high risk Cholesterol [Mass/Vol] 149 mg/dL Normal 140-200 [facility] Comment on above: Chol less than 200 m g/dl low riskChol 201-239 mg/dl borderline riskChol 240 mg/dl and greater high risk Result Comment: Chol less than 200 mg/dl low risk Chol 201-239 mg/dl borderline risk Chol 240 mg/dl and greater high risk Performed By: #### U HCG, URDS, ADDONUAPLUS #### [facility] [address] [place] [id number] [place] Cholesterol in HDL [Mass/vol ume] in Serum or PlasmaOrdered By: Kit Gutierrez on 11-06-2024 Cholesterol in HDL [Mass/Vol] Serum or plasma high density lipoprotein (HDL) cholesterol measurement [facility] Comment on above: HDL CHOL ATP-III CLA SSIFICATION Cardiovascular RiskHDL > or equal to 60 mg/dL LOWHDL < 40 mg/dL HIGH Cholesterol in HDL [Mass/Vol] 44 mg/dL Normal [facility] Comment on above: HDL CHOL ATP-III CLA SSIFICATION Cardiovascular RiskHDL > or equal to 60 mg/dL LOWHDL < 40 mg/dL HIGH Result Comment: HDL CHOL ATP-III CLASSIFICATION Cardiovascular Risk HDL > or equal to 60 mg/dL LOW HDL < 40 mg/dL HIGH Performed By: #### U HCG, URDS, ADDONUAPLUS #### [address] Cholesterol in LDL Calc [Mas s/Vol]Ordered By: Kit Gutierrez on 11-06-2024 Cholesterol in LDL [Mass/Vol] Cholesterol in LDL [Mass/volume] in Serum or Plasma by calculation [facility] Comment on above: LDL ATP III CLASSIFI CATIONLDL less than 100 mg/dL OptimalLDL 100-129 mg/dL Near or above optimalLDL 130-159 mg/dL Borderline highLDL 160-189 mg/dL HighLDL greater than 189 mg/dL Very high Cholesterol in LDL [Mass/Vol] 96 mg/dL 0 [facility] Comment on above: LDL ATP III CLASSIFI CATIONLDL less than 100 mg/dL OptimalLDL 100-129 mg/dL Near or above optimalLDL 130-159 mg/dL Borderline highLDL 160-189 mg/dL HighLDL greater than 189 mg/dL Very high Cholesterol in VLDL Calc [Ma ss/Vol]Ordered By: Kit Gutierrez on 11-06-2024 Cholesterol in VLDL [Mass/Vol] Cholesterol in VLDL [Mass/volume] in Serum or Plasma by calculation [facility] Cholesterol in VLDL [Mass/Vol] 8 mg/dL [facility] Color Auto (U)Ordered By: Avila Simons on 11-06-2024 Color (U) Color of Urine by Auto Yellow [facility] Color of Urine by AutoOrdere d By: Duane Simons on 11-06-2024 Color (U) Light-yellow Normal Yellow [facility] Comment on above: Order Comment: Name Collection Type:: Clean-Voided Midstream Performed By: #### U HCG, ADDONUAPLUS #### [address] Complete Blood Count Auto Di ffon 11-06-2024 Mean Corpuscular HGB Conc 34.2 g/dL Normal 32.0-35.0 [facility] Comment on above: Performed By: #### U HCG, URDS, ADDONUAPLUS #### [address] Monocytes/100 WBC (Bld) 18.05 % Normal 0.00-20.00 [facility] Comment on above: Performed By: #### U HCG, URDS, ADDONUAPLUS #### [address] NRBC% 0.1 /100{WBC} Normal 0-0.5 [facility] Comment on above: Performed By: #### U HCG, URDS, ADDONUAPLUS #### [address] Comprehensive Metabolic Pane blaine 11-06-2024 Albumin [Mass/Vol] 4.5 g/dL Normal 3.5-5.7 [facility] Comment on above: Performed By: #### U HCG, URDS, ADDONUAPLUS #### [address] Creatinine Clr Calc Pharmacy 112.89 Normal [facility] Comment on above: Result Comment: PERF ORMED BY: [place] [address] PATHOLOGIST [employer]PER[employer] ZULEIMA ZHANG M.D. Performed By: #### U HCG, URDS, ADDONUAPLUS #### [address] GFR/1.73 sq M.predicted MDRD (S/P/Bld) [Vol rate/Area] mL/min/{1.73_m2} Normal [facility] Comment on above: Performed By: #### U HCG, URDS, ADDONUAPLUS #### [facility] [address] [place] [address] [place] Creatinine [Mass/volume] in Serum or PlasmaOrdered By: Duane Simons on 11-06-2024 Creatinine [Mass/Vol] Creatinine [Mass/v olume] in Serum or Plasma 0.60-1.20 [facility] Creatinine [Mass/Vol] 0.67 mg/dL Normal 0.60-1.20 [facility] Comment on above: Performed By: #### U HCG, URDS, ADDONUAPLUS #### [facility] [address] [place] [address] [place] Dipstick and Microscopicon 0 11-06-2024 Bacteria,Urine None Seen Normal None Seen [facility] Comment on above: Order Comment: Name Collection Type:: Clean-Voided Midstream Performed By: #### U HCG, ADDONUAPLUS #### [facility] [address] [place] [address] [place] Bilirubin,Urine Negative Normal Negative [facility] Comment on above: Order Comment: Name Collection Type:: Clean-Voided Midstream Performed By: #### U HCG, ADDONUAPLUS #### [facility] [address] [place] [address] [place] Glucose Ql (U) Normal Normal Normal [facility] Comment on above: Order Comment: Name Collection Type:: Clean-Voided Midstream Performed By: #### U HCG, ADDONUAPLUS #### [facility] [address] [place] [address] [place] Hyaline Casts,Urine None Normal 0-8 [facility] Comment on above: Order Comment: Name Collection Type:: Clean-Voided Midstream Performed By: #### U HCG, ADDONUAPLUS #### [facility] [address] [place] [address] [place] Nitrite,Urine Negative Normal Negative [facility] Comment on above: Order Comment: Name Collection Type:: Clean-Voided Midstream Performed By: #### U HCG, ADDONUAPLUS #### [address] Occult Blood,Urine Trace High Negative [facility] Comment on above: Order Comment: Name Collection Type:: Clean-Voided Midstream Performed By: #### U HCG, ADDONUAPLUS #### [address] Protein,Urine Negative Normal Negative [facility] Comment on above: Order Comment: Name Collection Type:: Clean-Voided Midstream Performed By: #### U HCG, ADDONUAPLUS #### [address] RBC,Urine None Seen Normal 0-4 [facility] Comment on above: Order Comment: Name Collection Type:: Clean-Voided Midstream Performed By: #### U HCG, ADDONUAPLUS #### [address] Specificy [place],Urine 1.015 Normal 1.001-1.030 [facility] Comment on above: Order Comment: Name Collection Type:: Clean-Voided Midstream Performed By: #### U HCG, ADDONUAPLUS #### [address] Urobilinogen,Urine Normal Normal Normal [facility] Comment on above: Order Comment: Name Collection Type:: Clean-Voided Midstream Performed By: #### U HCG, ADDONUAPLUS #### [address] WBC,Urine 1-2 Normal 0-4 [facility] Comment on above: Order Comment: Name Collection Type:: Clean-Voided Midstream Performed By: #### U HCG, ADDONUAPLUS #### [place] [address] [place] Drug Screen,Urineon 11-07-19 25 Amphetamine Screen,Urine Negative Normal Negative [facility] Comment on above: Performed By: #### U HCG, URDS, ADDONUAPLUS #### [address] [address] [place] Barbiturate Screen,Urine Negative Normal Negative [facility] Comment on above: Performed By: #### U HCG, URDS, ADDONUAPLUS #### [address] Benzodiazepines Screen,Urine Negative Normal Negative [facility] Comment on above: Performed By: #### U HCG, URDS, ADDONUAPLUS #### [address] Cannabinoid Screen,Urine Positive High Negative [facility] Comment on above: Result Comment: Thes e are unconfirmed results and should not be used for legal purposes. Drug Cut-Off Concentration: AMPH 1000 ng/mL FIONA 200 ng/mL KIMMY 200 ng/mL COCM 300 ng/mL OP 300 ng/mL PCP 25 ng/mL THC 20 ng/mL PERFORMED BY: [place] [address] PATHOLOGIST [employer] SUPER[employer] ZULEIMA ZHANG M.D. Performed By: #### U HCG, URDS, ADDONUAPLUS #### [address] Cocaine Screen,Urine Negative Normal Negative [facility] Comment on above: Performed By: #### U HCG, URDS, ADDONUAPLUS #### [address] Opiate Screen,Urine Negative Normal Negative [facility] Comment on above: Performed By: #### U HCG, URDS, ADDONUAPLUS #### [address] Phencyclidine Screen,Urine Negative Normal Negative [facility] Comment on above: Performed By: #### U HCG, URDS, ADDONUAPLUS #### [address] Eosinophils Auto (Bld) [#/Vo l]Ordered By: Duane Simons on 11-06-2024 Eosinophils (Bld) [#/Vol] Automated eosinophil count 0.0-0.45 [facility] Eosinophils [#/volume] in Bl ood by Automated countOrdered By: Duane Simons on 11-06-2024 Eosinophils (Bld) [#/Vol] 0.0 10*3/uL Normal 0.0-0.45 [facility] Comment on above: Performed By: #### U HCG, URDS, ADDONUAPLUS #### [facility] [address] Eosinophils/100 WBC Auto (Bl d)Ordered By: Duane Simons on 11-06-2024 Eosinophils/100 WBC (Bld) Automated eosinophil % . [facility] Eosinophils/100 leukocytes i n Blood by Automated countOrdered By: Duane Simons on 11-06-2024 Eosinophils/100 WBC (Bld) 0.1 % Normal . [facility] Comment on above: Performed By: #### U HCG, URDS, ADDONUAPLUS #### [facility] [address] [place] [address] Epithelial cells.squamous [# /area] in Urine sediment by Automated countOrdered By: Duane Simons on 11-06-2024 Epithelial cells.squamous Auto (Urine sed) [#/Area] Epithelial cells.squamous [#/area] in Urine sediment by Automated count [facility] Epithelial cells.squamous Auto (Urine sed) [#/Area] N/A [facility] Erythrocyte distribution wid th Auto (RBC) [Ratio]Ordered By: Duane Simons on 11-06-2024 Erythrocyte distribution width (RBC) [Ratio] Erythrocyte distribution width [Ratio] by Automated count 11.9-15.3 [facility] Erythrocyte distribution wid th [Ratio] by Automated countOrdered By: Duane Simons on 11-06-2024 Erythrocyte distribution width (RBC) [Ratio] 14.8 % Normal 11.9-15.3 [facility] Comment on above: Performed By: #### U HCG, URDS, ADDONUAPLUS #### [facility] [address] [place] [address] [place] Erythrocytes [#/area] in Uri ne sediment by Automated countOrdered By: Duane Simons on 11-06-2024 RBC Auto (Urine sed) [#/Area] Erythrocytes [#/area] in Urine sediment by Automated count 0-4 [facility] RBC Auto (Urine sed) [#/Area] None seen [HPF] 0-4 [facility] Erythrocytes [#/volume] in B lood by Automated countOrdered By: Duane Simons on 11-06-2024 RBC (Bld) [#/Vol] 4.27 10*6/uL Normal 3.60-5.[address] [facility] Comment on above: Performed By: #### U HCG, URDS, ADDONUAPLUS #### [facility] [address] [place] [address] Ethanol [Mass/volume] in Ser um or PlasmaOrdered By: Duane Simons on 11-06-2024 Ethanol [Mass/Vol] Ethanol [Mass/volume ] in Serum or Plasma [facility] Comment on above: Test not performed Ethanol [Mass/Vol] mg/dL Normal [facility] Comment on above: Performed By: #### U HCG, URDS, ADDONUAPLUS #### [facility] [address] [place] [address] Ethyl Alcohol Profileon 10-18 Percent Ethanol Not performed Normal [facility] Comment on above: Result Comment: PERF ORMED BY: [place] [address] PATHOLOGIST [employer] SUPER[employer] ZULEIMA ZHANG M.D. Performed By: #### U HCG, URDS, ADDONUAPLUS #### [facility] [address] [place] [address] Globulin Calc (S) [Mass/Vol] Ordered By: Duane Simons on 11-06-2024 Globulin (S) [Mass/Vol] Serum globulin measurement by calculation (mass/volume) [facility] Glucose [Mass/volume] in Ser um or PlasmaOrdered By: Duane Simons on 11-06-2024 Glucose [Mass/Vol] Glucose [Mass/volume ] in Serum or Plasma 70-100 [facility] Comment on above: ADA recommended refe rence rangeRandom Glucose Reference Range is dependent on time and content of last meal. Glucose of more than 200 mg/dL in a nonstressed, ambulatory subject supports the diagnosis of Diabetes Mellitus. Glucose [Mass/Vol] 89 mg/dL Normal 70-100 [facility] Comment on above: ADA recommended refe rence rangeRandom Glucose Reference Range is dependent on time and content of last meal. Glucose of more than 200 mg/dL in a nonstressed, ambulatory subject supports the diagnosis of Diabetes Mellitus. Result Comment: Dante om Glucose Reference Range is dependent on time and content of last meal. Glucose of more than 200 mg/dL in a nonstressed, ambulatory subject supports the diagnosis of Diabetes Mellitus. ADA recommended reference range Performed By: #### U HCG, URDS, ADDONUAPLUS #### [facility] [address] Glucose [Mass/volume] in Uri ne by Test stripOrdered By: Duane Simons on 11-06-2024 Glucose Test strip (U) [Mass/Vol] Glucose [Mass/volume] in Urine by Test strip Normal [facility] Glucose Test strip (U) [Mass/Vol] Normal mg/dL Normal [facility] HCG ( test) IA.rapi d Ql (U)Ordered By: Duane Simons on 11-06-2024 HCG ( test) Ql (U) Urine human chorionic gonadotropin (hCG) detection by immunoassay [facility] HCG ( test) Ql (U) Negative [facility] HCG,Urineon 11-06-2024 Beta HCG ( test) Ql (U) Negative Normal [facility] Comment on above: Order Comment: Name Collection Type:: Clean-Voided Midstream Result Comment: PERF ORMED BY: [place] [address] PATHOLOGIST [employer] SUPERVISOR ZULEIMA ZHANG M.D. Performed By: #### U HCG, ADDONUAPLUS #### [facility] [address] [place] [address] Hematocrit Auto (Bld) [Volum e fraction]Ordered By: Duane Simons on 11-06-2024 Hematocrit (Bld) [Volume fraction] Hematocrit [Volume Fraction] of Blood by Automated count 34.0-46.4 [facility] Hematocrit [Volume Fraction] of Blood by Automated countOrdered By: Duane Simons on 11-06-2024 Hematocrit (Bld) [Volume fraction] 36.8 % Normal 34.0-46.4 [facility] Comment on above: Performed By: #### U HCG, URDS, ADDONUAPLUS #### [facility] [address] Hemoglobin Test strip Ql (U) Ordered By: Duane Simons on 11-06-2024 Hemoglobin Ql (U) Hemoglobin [Presence ] in Urine by Test strip High Negative [facility] Hemoglobin Ql (U) Trace High Negative [facility] Hemoglobin [Mass/volume] in BloodOrdered By: Duane Simons on 11-06-2024 Hemoglobin (Bld) [Mass/Vol] Hemoglobin [Mass/volume] in Blood 11.8-15.4 [facility] Hemoglobin (Bld) [Mass/Vol] 12.6 g/dL Normal 11.8-15.4 [facility] Comment on above: Performed By: #### U HCG, URDS, ADDONUAPLUS #### [address] Hyaline casts [#/area] in Ur ine sediment by Automated countOrdered By: Duane Simons on 11-06-2024 Hyaline casts Auto (Urine sed) [#/Area] Hyaline casts [#/area] in Urine sediment by Automated count 0-8 [facility] Hyaline casts Auto (Urine sed) [#/Area] None [LPF] 0-8 [facility] Ketones Test strip Ql (U)Ord ered By: Duane Simons on 11-06-2024 Ketones Ql (U) Ketones [Presence] i n Urine by Test strip Negative [facility] Ketones [Presence] in Urine by Test stripOrdered By: Duane Simons on 11-06-2024 Ketones Ql (U) Negative Normal Negative [facility] Comment on above: Order Comment: Name Collection Type:: Clean-Voided Midstream Performed By: #### U HCG, ADDONUAPLUS #### [address] Leukocyte esterase [Presence ] in Urine by Test stripOrdered By: Duane Simons on 11-06-2024 Leukocyte esterase Test strip Ql (U) Leukocyte esterase [Presence] in Urine by Test strip High Negative [facility] Leukocyte esterase Test strip Ql (U) 2+ High Negative [facility] Comment on above: Order Comment: Name Collection Type:: Clean-Voided Midstream Performed By: #### U HCG, ADDONUAPLUS #### [facility] [address] Leukocytes [#/area] in Urine sediment by Automated countOrdered By: Duane Simons on 11-06-2024 WBC Auto (Urine sed) [#/Area] Leukocytes [#/area] in Urine sediment by Automated count 0-4 [facility] WBC Auto (Urine sed) [#/Area] 1-2 [HPF] 0-4 [facility] Leukocytes [#/volume] correc arminda for nucleated erythrocytes in Blood by Automated counOrdered By: Duane Simons on 11-06-2024 WBC corrected for nucl RBC Auto (Bld) [#/Vol] Leukocytes [#/volume] corrected for nucleated erythrocytes in Blood by Automated coun 3.8-11.6 [facility] WBC corrected for nucl RBC Auto (Bld) [#/Vol] 5.9 10*3/uL 3.8-11.6 [facility] Leukocytes [#/volume] in Blo od by Automated countOrdered By: Duane Simosn on 11-06-2024 WBC (Bld) [#/Vol] 5.9 10*3/uL Normal 3.8-11.6 [facility] Comment on above: Performed By: #### U HCG, URDS, ADDONUAPLUS #### [facility] [address] Lipid Panelon 11-06-2024 LDL Cholesterol,Calculate d 96 mg/dL Normal 0-100 [facility] Comment on above: Result Comment: LDL ATP III CLASSIFICATION LDL less than 100 mg/dL Optimal LDL 100-129 mg/dL Near or above optimal LDL 130-159 mg/dL Borderline high LDL 160-189 mg/dL High LDL greater than 189 mg/dL Very high Performed By: #### U HCG, URDS, ADDONUAPLUS #### [address] Triglyceride w/Reflex 44 mg/dL Normal 0-149 [facility] Comment on above: Result Comment: TRIG ATP III CLASSIFICATION TRIG less than 150 mg/dL Normal TRIG 150-199 mg/dL Borderline high TRIG 200-500 mg/dL High TRIG greater than 500 mg/dL Very high Standard traceable to the Center for Disease Conrtrol and Prevention (CDC) test method. Performed By: #### U HCG, URDS, ADDONUAPLUS #### [address] VLDL CHOLESTEROL 8 mg/dL Normal [facility] Comment on above: Performed By: #### U HCG, URDS, ADDONUAPLUS #### [address] Lymphocytes Auto (Bld) [#/Vo l]Ordered By: Duane Simons on 11-06-2024 Lymphocytes (Bld) [#/Vol] Lymphocytes [#/volume] in Blood by Automated count 1.00-4.8 [facility] Lymphocytes [#/volume] in Bl ood by Automated countOrdered By: Duane Simons on 11-06-2024 Lymphocytes (Bld) [#/Vol] 2.1 10*3/uL Normal 1.00-4.8 [facility] Comment on above: Performed By: #### U HCG, URDS, ADDONUAPLUS #### [address] Lymphocytes/100 WBC Auto (Bl d)Ordered By: Duane Simons on 11-06-2024 Lymphocytes/100 WBC (Bld) Lymphocytes/100 leukocytes in Blood by Automated count . [facility] Lymphocytes/100 leukocytes i n Blood by Automated countOrdered By: Duane Simons on 11-06-2024 Lymphocytes/100 WBC (Bld) 36.1 % Normal . [facility] Comment on above: Performed By: #### U HCG, URDS, ADDONUAPLUS #### [address] MCH Auto (RBC) [Entitic mass ]Ordered By: Duane Simons on 11-06-2024 MCH (RBC) [Entitic mass] MCH [Entitic mass] by Automated count 24.7-34.3 [facility] MCH [Entitic mass] by Automa arminda countOrdered By: Duane Simons on 11-06-2024 MCH (RBC) [Entitic mass] 29.4 pg Normal 24.7-34.3 [facility] Comment on above: Performed By: #### U HCG, URDS, ADDONUAPLUS #### [facility] [address] [place] [address] MCHC Auto (RBC) [Mass/Vol]Or dered By: Duane Simons on 11-06-2024 MCHC (RBC) [Mass/Vol] MCHC [Mass/volume] by Automated count 32.0-35.0 [facility] MCHC (RBC) [Mass/Vol] 34.2 g/dL 32.0-35.0 [facility] MCV Auto (RBC) [Entitic vol] Ordered By: Duane Simons on 11-06-2024 MCV (RBC) [Entitic vol] MCV [Entitic volume] by Automated count 80-100 [facility] MCV [Entitic volume] by Auto mated countOrdered By: Duane Simons on 11-06-2024 MCV (RBC) [Entitic vol] 86.1 fL Normal 80-100 [facility] Comment on above: Performed By: #### U HCG, URDS, ADDONUAPLUS #### [facility] [address] [place] [address] Monocyte distribution width [Entitic volume] in Blood by AutomatedOrdered By: Duane Simons on 11-06-2024 Monocyte distribution width Auto (Bld) [Entitic vol] Monocyte distribution width [Entitic volume] in Blood by Automated 0.00-20.00 [facility] Monocyte distribution width Auto (Bld) [Entitic vol] 18.05 % 0.00-20.00 [facility] Monocytes Auto (Bld) [#/Vol] Ordered By: Duane Simons on 11-06-2024 Monocytes (Bld) [#/Vol] Automated blood monocyte count 0.0-0.8 [facility] Monocytes [#/volume] in Bloo d by Automated countOrdered By: Duane Simons on 11-06-2024 Monocytes (Bld) [#/Vol] 0.3 10*3/uL Normal 0.0-0.8 [facility] Comment on above: Performed By: #### U HCG, URDS, ADDONUAPLUS #### [address] Monocytes/100 WBC Auto (Bld) Ordered By: Duane Simons on 11-06-2024 Monocytes/100 WBC (Bld) Automated monocyte % . [facility] Monocytes/100 leukocytes in Blood by Automated countOrdered By: Duane Simons on 11-06-2024 Monocytes/100 WBC (Bld) 4.7 % Normal . [facility] Comment on above: Performed By: #### U HCG, URDS, ADDONUAPLUS #### [address] Neutrophils Auto (Bld) [#/Vo l]Ordered By: Duane Simons on 11-06-2024 Neutrophils (Bld) [#/Vol] Neutrophils [#/volume] in Blood by Automated count 1.8-7.7 [facility] Neutrophils [#/volume] in Bl ood by Automated countOrdered By: Duane Simons on 11-06-2024 Neutrophils (Bld) [#/Vol] 3.5 10*3/uL Normal 1.8-7.7 [facility] Comment on above: Performed By: #### U HCG, URDS, ADDONUAPLUS #### [place] [address] [place] Neutrophils/100 WBC Auto (Bl d)Ordered By: Duane Simons on 11-06-2024 Neutrophils/100 WBC (Bld) Automated neutrophil % . [facility] Neutrophils/100 leukocytes i n Blood by Automated countOrdered By: Duane Simons on 11-06-2024 Neutrophils/100 WBC (Bld) 58.6 % Normal . [facility] Comment on above: Performed By: #### U HCG, URDS, ADDONUAPLUS #### [address] Nitrite Test strip Ql (U)Ord ered By: Duane Simons on 11-06-2024 Nitrite Ql (U) Nitrite [Presence] i n Urine by Test strip Negative [facility] Nitrite Ql (U) Negative Negative [facility] No Panel InformationOrdered By: Daune Simons on 11-06-2024 Estimated GFR (CKD-EPI) > 60.0 mL/Min [facility] Creatinine Clearance (Chem 112.89 [facility] Nucleated erythrocytes [Pres ence] in Blood by Automated countOrdered By: Duane Simons on 11-06-2024 Nucleated RBC Auto Ql (Bld) Nucleated erythrocytes [Presence] in Blood by Automated count 0-0.5 [facility] Nucleated RBC Auto Ql (Bld) 0.1 /100{WBC} 0-0.5 [facility] Opiates [Presence] in Urine by Screen methodOrdered By: Duane Simons on 11-06-2024 Opiates Screen Ql (U) Opiates [Presence] in Urine by Screen method Negative [facility] Opiates Screen Ql (U) Negative Negative [facility] Phencyclidine Screen Ql (U)O rdered By: Duane Simons on 11-06-2024 Phencyclidine Ql (U) Phencyclidine [Pres ence] in Urine by Screen method Negative [facility] Phencyclidine Ql (U) Negative Negative [facility] Platelet mean volume Auto (B ld) [Entitic vol]Ordered By: Duane Simons on 11-06-2024 Platelet mean volume (Bld) [Entitic vol] Platelet mean volume [Entitic volume] in Blood by Automated count 6.3-10.7 [facility] Platelet mean volume [Entiti c volume] in Blood by Automated countOrdered By: Duane Simons on 11-06-2024 Platelet mean volume (Bld) [Entitic vol] 7.8 fL Normal 6.3-10.7 [facility] Comment on above: Performed By: #### U HCG, URDS, ADDONUAPLUS #### [address] Platelets Auto (Bld) [#/Vol] Ordered By: Duane Simons on 11-06-2024 Platelets (Bld) [#/Vol] Platelets [#/volume] in Blood by Automated count 150-450 [facility] Platelets [#/volume] in Bloo d by Automated countOrdered By: Duane Simons on 11-06-2024 Platelets (Bld) [#/Vol] 264 10*3/uL Normal 150-450 [facility] Comment on above: Performed By: #### U HCG, URDS, ADDONUAPLUS #### [facility] [address] Potassium [Moles/volume] in Serum or PlasmaOrdered By: Duane Simons on 11-06-2024 Potassium [Moles/Vol] Potassium [Moles/v olume] in Serum or Plasma 3.5-5.1 [facility] Potassium [Moles/Vol] 3.7 mmol/L Normal 3.5-5.1 [facility] Comment on above: Performed By: #### U HCG, URDS, ADDONUAPLUS #### [facility] [address] Protein Test strip (U) [Mass /Vol]Ordered By: Duane Simons on 11-06-2024 Protein (U) [Mass/Vol] Protein [Mass/volume] in Urine by Test strip Negative [facility] Protein (U) [Mass/Vol] Negative Negative [facility] Protein [Mass/volume] in Ser um or PlasmaOrdered By: Duane Simons on 11-06-2024 Protein [Mass/Vol] Protein [Mass/volume ] in Serum or Plasma 6.4-8.9 [facility] Protein [Mass/Vol] 7.2 g/dL Normal 6.4-8.9 [facility] Comment on above: Performed By: #### U HCG, URDS, ADDONUAPLUS #### [facility] [address] RBC Auto (Bld) [#/Vol]Ordere d By: Duane Simons on 11-06-2024 RBC (Bld) [#/Vol] Erythrocytes [#/volu me] in Blood by Automated count 3.60-5.00 [facility] Serum globulin measurement b y calculation (mass/volume)Ordered By: Duane Simons on 11-06-2024 Globulin (S) [Mass/Vol] 2.7 g/dL Normal [facility] Comment on above: Performed By: #### U HCG, URDS, ADDONUAPLUS #### [facility] [address] [place] [address] Serum or plasma albumin/glob ulin mass ratioOrdered By: Duane Simons on 11-06-2024 Albumin/Globulin [Mass ratio] Serum or plasma albumin/globulin mass ratio [facility] Albumin/Globulin [Mass ratio] 1.7 {ratio} Normal [facility] Comment on above: Performed By: #### U HCG, URDS, ADDONUAPLUS #### [facility] [address] [place] [address] Serum or plasma anion gap de terminationOrdered By: Duane Simons on 11-06-2024 Anion gap [Moles/Vol] Serum or plasma an ion gap determination 6.0-15.0 [facility] Anion gap [Moles/Vol] 9.6 mmol/L Normal 6.0-15.0 [facility] Comment on above: Performed By: #### U HCG, URDS, ADDONUAPLUS #### [facility] [address] [place] [address] Serum or plasma ethanol alayna urement (mass/volume)Ordered By: Duane Simons on 11-06-2024 Ethanol [Mass/Vol] TNP [facility] Comment on above: Test not performed Serum or plasma total choles terol/high density lipoprotein (HDL) cholesterol mass ratOrdered By: Kit Gutierrez on 11-06-2024 Cholesterol.total/Cho lesterol in HDL [Mass ratio] Serum or plasma total cholesterol/high density lipoprotein (HDL) cholesterol mass rat <5.0 [facility] Cholesterol.total/Cho lesterol in HDL [Mass ratio] 3.4 {ratio} Normal <5.0 [facility] Comment on above: Performed By: #### U HCG, URDS, ADDONUAPLUS #### [facility] [address] [place] [address] Sodium [Moles/volume] in Ser um or PlasmaOrdered By: Duane Simons on 11-06-2024 Sodium [Moles/Vol] Sodium [Moles/volume ] in Serum or Plasma 136-145 [facility] Sodium [Moles/Vol] 139 mmol/L Normal 136-145 [facility] Comment on above: Performed By: #### U HCG, URDS, ADDONUAPLUS #### [facility] [address] Specific gravity Test strip (U) [Rel density]Ordered By: Duane Simons on 11-06-2024 Specific gravity (U) [Rel density] Specific gravity of Urine by Test strip 1.001-1.030 [facility] Specific gravity (U) [Rel density] 1.015 1.001-1.030 [facility] Thyroid Stim Hormone w/Rflxo n 11-06-2024 Thyroid Stim Hormone w/Rflx 0.79 u[iU]/mL Normal 0.45-5.33 [facility] Comment on above: Performed By: #### U HCG, URDS, ADDONUAPLUS #### [facility] [address] Thyrotropin [Units/volume] i n Serum or PlasmaOrdered By: Kit Gutierrez on 11-06-2024 TSH Qn Thyrotropin [Units/volume] in Serum or Plasma 0.45-5.33 [facility] TSH Qn 0.79 m[IU]/L 0.45-5.33 [facility] Triglyceride [Mass/volume] i n Serum or PlasmaOrdered By: Kit Gutierrez on 11-06-2024 Triglyceride [Mass/Vol] Triglyceride [Mass/volume] in Serum or Plasma 0-149 [facility] Comment on above: TRIG ATP III CLASSIF ICATIONTRIG less than 150 mg/dL NormalTRIG 150-199 mg/dL Borderline highTRIG 200-500 mg/dL High TRIG greater than 500 mg/dL Very highStandard traceable to the Center for Disease Conrtrol and Prevention (CDC) test method. Triglyceride [Mass/Vol] 44 mg/dL 0-149 [facility] Comment on above: TRIG ATP III CLASSIF ICATIONTRIG less than 150 mg/dL NormalTRIG 150-199 mg/dL Borderline highTRIG 200-500 mg/dL High TRIG greater than 500 mg/dL Very highStandard traceable to the Center for Disease Conrtrol and Prevention (CDC) test method. Urea nitrogen [Mass/volume] in Serum or PlasmaOrdered By: Duane Simons on 11-06-2024 Urea nitrogen [Mass/Vol] Urea nitrogen [Mass/volume] in Serum or Plasma Low 7-25 [facility] Urea nitrogen [Mass/Vol] 6 mg/dL Low 7-25 [facility] Comment on above: Performed By: #### U HCG, URDS, ADDONUAPLUS #### [facility] [address] [place] [address] Urobilinogen Test strip (U) [Mass/Vol]Ordered By: Duane Simons on 11-06-2024 Urobilinogen (U) [Mass/Vol] Urobilinogen [Mass/volume] in Urine by Test strip Normal [facility] Urobilinogen (U) [Mass/Vol] Normal mg/dL Normal [facility] Vitamin D 25 Hydroxy Totalon 11-06-2024 Vitamin D 25 Hydroxy Total 7.8 ng/mL Low 30-100 [facility] Comment on above: Result Comment: CEM MIN D STATUS 25(OH)VITAMIN D RANGE (ng/mL) Deficient <20 Insufficient 20 to <30 Sufficient 30 to 100 Reference: Malou MF,Roly NC, Kassidy SHAH, et al. Evaluation,treatment, and prevention of vitamin D deficiency; an Endocrine Society clinical practice guideline. JCEM. 2010; 96(7):1911-30. PERFORMED BY: [place] [address] PATHOLOGIST [employer] ZLUEIMA ZHANG M.D. Performed By: #### U HCG, URDS, ADDONUAPLUS #### [facility] [address] [place] [address] Vitamin D+Metabolites [Mass/ volume] in Serum or PlasmaOrdered By: Kit Gutierrez on 11-06-2024 Vitamin D+Metabolites [Mass/Vol] Vitamin D+Metabolites [Mass/volume] in Serum or Plasma Low 30-100 [facility] Comment on above: VITAMIN D STATUS 25( OH)VITAMIN D RANGE (ng/mL) Deficient <20 Insufficient 20 to <30Sufficient 30 to 100Reference: Roly Trevino, Kassidy SHAH, et al. Evaluation,treatment, and prevention of vitamin D deficiency; an Endocrine Society clinical practice guideline. JCEM. 2010; 96(7):1911-. Vitamin D+Metabolites [Mass/Vol] 7.8 ng/mL Low 30-100 [facility] Comment on above: VITAMIN D STATUS 25( OH)VITAMIN D RANGE (ng/mL) Deficient <20 Insufficient 20 to <30Sufficient 30 to 100Reference: Roly Trevino, Kassidy SHAH, et al. Evaluation,treatment, and prevention of vitamin D deficiency; an Endocrine Society clinical practice guideline. JCEM. 2010; 96(7):1911-. WBC Auto (Bld) [#/Vol]Ordere d By: Duane Simons on 11-06-2024 WBC (Bld) [#/Vol] Leukocytes [#/volume ] in Blood by Automated count 3.8-11.6 [facility] pH Test strip (U)Ordered By: Duane Simons on 11-06-2024 pH (U) pH of Urine by Test strip 5.0-9.0 [facility] pH of Urine by Test stripOrd ered By: Duane Simons on 11-06-2024 pH (U) 5.5 [pH] Normal 5.0-9.0 [facility] Comment on above: Order Comment: Name Collection Type:: Clean-Voided Midstream Performed By: #### U HCG, ADDONUAPLUS #### [facility] [address] CBC AND AUTO DIFFon 09-17-19 25 ABSOLUTE BASOPHIL 0.0 X10E9/L Normal 0.0-0.2 [facility] Comment on above: Performed By: #### C BCA, CMP #### [facility] ([id number]) [address] [facility] [place] [address] ABSOLUTE NEUTROPHIL 3.0 X10E9/L Normal 1.5-6.6 [facility] Comment on above: Performed By: #### C DARIO, CMP #### [facility] ([id number]) [address] [place] [address] 22915 Basophils/100 WBC (Bld) 0.4 % Normal [facility] Comment on above: Performed By: #### C DARIO, CMP #### [facility] ([id number]) [address] [place] [address]772 Eosinophils (Bld) [#/Vol] 0.1 10*3/uL Normal 0.0-0.4 [facility] Comment on above: Performed By: #### C DARIO, CMP #### [facility] ([id number]) [address] [place] [address] 19853 Eosinophils/100 WBC (Bld) 1.0 % Normal [facility] Comment on above: Performed By: #### C DARIO, CMP #### [facility] ([id number]) [address] [place] [address] 11082 Erythrocyte distribution width (RBC) [Ratio] 15.6 % High 11.5-15.0 [facility] Comment on above: Performed By: #### C DARIO, CMP #### [facility] ([id number]) [address] [place] [address] 34513 Hematocrit (Bld) [Volume fraction] 35.7 % Normal 35-47 [facility] Comment on above: Performed By: #### C DARIO, CMP #### [facility] ([id number]) [address] [place] [address] 96122 Hemoglobin (Bld) [Mass/Vol] 12.4 g/dL Normal 11.7-15.5 [facility] Comment on above: Performed By: #### C DARIO, CMP #### [facility] ([id number]) [address] [place] [address] 44432 Lymphocytes (Bld) [#/Vol] 2.1 10*3/uL Normal 1.0-3.5 [facility] Comment on above: Performed By: #### C BCA, CMP #### [facility] ([id number]) [address] [place] [address] 03696 Lymphocytes/100 WBC (Bld) 37.9 % Normal [facility] Comment on above: Performed By: #### C BCA, CMP #### [facility] ([id number]) [address] [place] [address] 76608 MCH (RBC) [Entitic mass] 29.4 pg Normal 27-34 [facility] Comment on above: Performed By: #### C BCA, CMP #### [facility] ([id number]) [address] [place] [address] 75936 MCHC (RBC) [Mass/Vol] 34.6 g/dL Normal 32-36 [facility] Comment on above: Performed By: #### C BCA, CMP #### [facility] ([id number]) [address] [place] [address] 95456 MCV (RBC) [Entitic vol] 85 fL Normal 80-100 [facility] Comment on above: Performed By: #### C BCA, CMP #### [facility] ([id number]) [address] [place] [address] 77619 Monocytes (Bld) [#/Vol] 0.4 10*3/uL Normal 0-0.9 [facility] Comment on above: Performed By: #### C BCA, CMP #### [facility] ([id number]) [address] [place] [address] 39295 Monocytes/100 WBC (Bld) 7.5 % Normal [facility] Comment on above: Performed By: #### C BCA, CMP #### [facility] ([id number]) [address] [place] [address] 44982 Neutrophils/100 WBC (Bld) 53.2 % Normal [facility] Comment on above: Performed By: #### C BCA, CMP #### [facility] ([id number]) [address] [place] [address] 64376 Platelet mean volume (Bld) [Entitic vol] 8.0 fL Normal 7-12 [facility] Comment on above: Performed By: #### C BCA, CMP #### [facility] ([id number]) [address] [place] [address] 77739 Platelets (Bld) [#/Vol] 217 10*3/uL Normal 150-450 [facility] Comment on above: Performed By: #### C DARIO, CMP #### [facility] ([id number]) [address] [place] [address] 66644 RBC COUNT 4.20 X10E12/L Normal 3.80-5.20 [facility] Comment on above: Performed By: #### C BCA, CMP #### [facility] ([id number]) [address] [place] [address] 47956 WBC (Bld) [#/Vol] 5.7 10*3/uL Normal 4.0-11.0 [facility] Comment on above: Performed By: #### C BCA, CMP #### [facility] ([id number]) [address] [place] [address] 66983 COMPREHENSIVE METABOLIC PANE [place] 09-16-2024 Albumin [Mass/Vol] 4.6 g/dL Normal 3.2-5.3 [facility] Comment on above: Performed By: #### C BCA, CMP #### [facility] ([id number]) [address] [place] [address] 52526 ALP [Catalytic activity/Vol] 48 U/L Normal 39-130 [facility] Comment on above: Performed By: #### C BCA, CMP #### [facility] ([id number]) [address] [place] [address] 64908 ALT [Catalytic activity/Vol] 12 U/L Normal 0-31 [facility] Comment on above: Performed By: #### C BCA, CMP #### [facility] ([id number]) [address] [place] [address] 79617 Anion gap [Moles/Vol] 8 mmol/L Normal 5-15 [facility] Comment on above: Performed By: #### C BCA, CMP #### [facility] ([id number]) [address] [place] [address] 01827 AST [Catalytic activity/Vol] 17 U/L Normal 0-41 [facility] Comment on above: Performed By: #### C BCA, CMP #### [facility] ([id number]) [address] [place] [address] 18377 Bilirubin [Mass/Vol] 0.3 mg/dL Normal 0.3-1.2 [facility] Comment on above: Performed By: #### C BCA, CMP #### [facility] ([id number]) [address] [place] [address] 80231 Calcium [Mass/Vol] 9.5 mg/dL Normal 8.5-10.5 [facility] Comment on above: Performed By: #### C BCA, CMP #### [facility] ([id number]) [address] [place] [address] 95883 Chloride [Moles/Vol] 102 mmol/L Normal 98-109 [facility] Comment on above: Performed By: #### C BCA, CMP #### [facility] ([id number]) [address] [place] [address] 61679 CO2 [Moles/Vol] 26 mmol/L Normal 22-32 [facility] Comment on above: Performed By: #### C BCA, CMP #### [facility] ([id number]) [address] [place] [address] 70677 Creatinine [Mass/Vol] 0.71 mg/dL Normal 0.40-1.00 [facility] Comment on above: Result Comment: METH OD TRACEABLE TO IDMS STANDARD Performed By: #### C BCA, CMP #### [facility] ([id number]) [address] [place] [address] 89199 eGFR (CKD-EPI) NON-RACE DEPENDENT >90 Normal >59 [facility] Comment on above: Result Comment: Reported eGFR is based on the CKD-EPI 2020 equation that does not use a race coefficient. Performed By: #### C BCA, CMP #### [facility] ([id number]) [address] [place] [address] 24214 Glucose [Mass/Vol] 89 mg/dL Normal 65-99 [facility] Comment on above: Performed By: #### C BCA, CMP #### [facility] ([id number]) [address] [place] [address] 85157 Potassium [Moles/Vol] 3.5 mmol/L Normal 3.5-5.0 [facility] [facility] Comment on above: Performed By: #### C BCA, CMP #### [facility] ([id number]) [address] [place] [id number] Protein [Mass/Vol] 7.8 g/dL Normal 6.0-8.0 [facility] Comment on above: Performed By: #### C BCA, CMP #### [facility] ([id number]) [address] [place] [address]9780 Sodium [Moles/Vol] 136 mmol/L Normal 134-146 [facility] Comment on above: Performed By: #### C BCA, CMP #### [facility] ([id number]) [address] [place] [address] Urea nitrogen [Mass/Vol] 8 mg/dL Normal 5-23 [facility] Comment on above: Performed By: #### C BCA, CMP #### [facility] ([id number]) [address] [place] [address] ABDOMEN AND PELVIS W CONT on [...] Blandon MD on 09/16/2024 9:31 PM Normal [facility] URN MACROSCOPIC NURon 2024 BILIRUBIN LYNSEY Negative Normal NEG [facility] Comment on above: Performed By: #### N UM #### [facility] ([id number]) [address] [place] [address]484 BLOOD/HGB LYNSEY Trace Abnormal NEG [facility] Comment on above: Performed By: #### N UM #### [facility] ([id number]) [address] [place] [address], [place] [address] GLUCOSE LYNSEY Negative Normal NEG [facility] Comment on above: Performed By: #### N UM #### [facility] ([id number]) [address] [place] [address] [place] [address] KETONES LYNSEY Negative Normal NEG [facility] Comment on above: Performed By: #### N UM #### [facility] ([id number]) [address] [place] [address]44 LEUKOCYTE ESTERASE LYNSEY Negative Normal NEG [facility] Comment on above: Performed By: #### N UM #### [facility] ([id number]) [address] [place] [address] [place] [address] NITRITE LYNSEY Negative Normal NEG [facility] Comment on above: Performed By: #### N UM #### [facility] ([id number]) [address] [place] [address] PH LYNSEY 5.5 Normal 5.0-8.5 [facility] Comment on above: Performed By: #### N UM #### [facility] ([id number]) [address] [place] [address] [place] [address] PROTEIN LYNSEY Negative Normal NEG [facility] Comment on above: Performed By: #### N UM #### [facility] ([id number]) [address] [place] [address] [place] [address] SPECIFIC GRAVITY LYNSEY 1.020 Normal 1.003-1.035 [facility] Comment on above: Performed By: #### N UM #### [facility] ([id number]) [address] [place] [address] [place] [address] UROBILINOGEN LYNSEY 0.2 eu/dL Normal <1.1 [facility] Comment on above: Performed By: #### N UM #### [facility] ([id number]) [address] [place] [address], [place] [address] Cult,Aerobe/Anaerobeon 04-16 Cult,Aerobe/Anaerobe Specimen Descriptio n .ABDOMEN SWAB Special Requests Site: Swab Direct Exam NO NEUTROPHILS SEEN NO BACTERIA SEEN Culture NORMAL SKIN EMILIA VEILLONELLA SPECIES RARE GROWTH Identification by MALDI-TOF Report Status FINAL 04/16/[address] [facility] Comment on above: Performed By: #### C P, LIP, CDP #### [facility] [address] [place] [address] Special Librarian: Lakhwinder Tim MD Culture, Anaerobic and Aerob icon 04-16-2024 Interpretation and review of laboratory results Abnormal [facility] Microorganism identified Cx Nom (Unsp spec) NORMAL SKIN EMILIA [facility] Microorganism identified Cx Nom (Unsp spec) VEILLONELLA SPECIES RARE GROWTH Identification by MALDI-TOF Abnormal [facility] Microorganism or agent identified Nom (Unsp spec) NO NEUTROPHILS SEEN [facility] Microorganism or agent identified Nom (Unsp spec) NO BACTERIA SEEN [facility] Service comment (Unsp spec) [Interp] Site: Swab [facility] Specimen Description .ABDOMEN SWAB B on [facility] XR ABDOMEN (KUB) (SINGLE AP VIEW)on 04-16-2024 [...] Ni MD 04/16/[address] [facility] XR Abdomen Single viewon Postoperative ileus. [facility] EXAMINATION: ONE SUPINE XRAY VIEW(S) OF [...] Within normal limits for age Other: None [facility] Christian Ni MD - [...] for age Other: None IMPRESSION: Postoperative ileus. [facility] Radiology Study observation (narrative) [facility] XR Abdomen Single viewOrdere d By: Christian Ni on 04-16-2024 [facility] Work Phone: CBC auto differentialon 03-20 Basophils (Bld) [#/Vol] [facility] Basophils/100 WBC (Bld) 0 % 0 - 2 % [facility] Eosinophils (Bld) [#/Vol] 0.33 10*3/uL [facility] Eosinophils/100 WBC (Bld) 8 % High 1 - 4 % [facility] Erythrocyte distribution width (RBC) [Ratio] 13.0 % 11.8 - 14.4 % [facility] Hematocrit (Bld) [Volume fraction] 28.5 % Low 36.3 - 47.1 % [facility] Hemoglobin (Bld) [Mass/Vol] 9.3 g/dL Low 11.9 - 15.1 g/dL [facility] Immature granulocytes (Bld) [#/Vol] [facility] Immature granulocytes/100 WBC (Bld) 0 % 0 [facility] Interpretation and review of laboratory results Abnormal [facility] Lymphocytes/100 WBC (Bld) 45 % High 24 - 43 % [facility] Lymphocytes/100 WBC (Bld) 1.87 % [facility] MCH (RBC) [Entitic mass] 28.6 pg 25.2 - 33.5 pg [facility] MCHC (RBC) [Mass/Vol] 32.6 g/dL 28.4 - 34.8 g/dL [facility] MCV (RBC) [Entitic vol] 87.7 fL 82.6 - 102.9 fL [facility] Monocytes/100 WBC (Bld) 9 % 3 - 12 % [facility] Monocytes/100 WBC (Bld) 0.39 % [facility] Neutrophils/100 WBC (Bld) 38 % 36 - 65 % [facility] Nucleated RBC/100 WBC (Bld) [Ratio] 0.0 % 0.0 per 100 WBC [facility] Platelet mean volume (Bld) [Entitic vol] 9.7 fL 8.1 - 13.5 fL [facility] Platelets (Bld) [#/Vol] 204 10*3/uL [facility] RBC (Bld) [#/Vol] 3.25 10*6/uL Low 3.95 - 5.1 1 m/uL [facility] Segmented neutrophils/100 WBC (Bld) 1.62 % [facility] WBC other (Bld) [#/Vol] 4.2 [facility] CBC with Diffon 10-28-2024 Abs. Basophil <0.03 Normal 0.00-0.20 [facility] Comment on above: Performed By: #### C DP #### [facility] [address] [place], [place] [address] Special Librarian: Lakhwinder Tim MD Abs.Imm.Granulocyte <0.03 Normal 0.00-0.30 [facility] Comment on above: Performed By: #### C DP #### [facility] [address] [place], [place] [address] Special Librarian: Lakhwinder Tim MD Abs.Neutrophil (Seg) 1.62 k/uL Normal 1.50-8.10 [facility] Comment on above: Performed By: #### C DP #### [facility] [address] [place], [facility] Special Librarian: Lakhwinder Tim MD Basophils/100 WBC (Bld) 0 % Normal 0-2 [facility] Comment on above: Performed By: #### C DP #### [address] [place], [place] [address] Special Librarian: Lakhwinder Tim MD Eosinophils (Bld) [#/Vol] 0.33 10*3/uL Normal 0.00-0.44 [facility] Comment on above: Performed By: #### C DP #### [facility] [address] [place], [place] [address] Special Librarian: Lakhwinder Tim MD Eosinophils/100 WBC (Bld) 8 % High 1-4 [facility] Comment on above: Performed By: #### C DP #### [facility] [address] [place], [facility]83 Special Librarian: Lakhwinder Tim MD Erythrocyte distribution width (RBC) [Ratio] 13.0 % Normal 11.8-14.4 [facility] Comment on above: Performed By: #### C DP #### [facility] [address] [place], [place] [id number] Special Librarian: Lakhwinder Tim MD Hematocrit (Bld) [Volume fraction] 28.5 % Low 36.3-47.1 [facility] Comment on above: Performed By: #### C DP #### [facility] [address] [place], [facility]83 Special Librarian: Lakhwinder Tim MD Hemoglobin (Bld) [Mass/Vol] 9.3 g/dL Low 11.9-15.1 [facility] Comment on above: Performed By: #### C DP #### [address] [place], [facility]83 Special Librarian: Lakhwinder Tim MD Immature granulocytes/100 WBC (Bld) 0 % Normal 0 [facility] Comment on above: Performed By: #### C DP #### [facility] [address] [place], [facility]83 Special Librarian: Lakhwinder Tim MD Lymphocytes (Bld) [#/Vol] 1.87 10*3/uL Normal 1.10-3.70 [facility] Comment on above: Performed By: #### C DP #### [facility] [address] [place], [facility]83 Special Librarian: Lakhwinder Tim MD Lymphocytes/100 WBC (Bld) 45 % High 24-43 [facility] Comment on above: Performed By: #### C DP #### [facility] [address] [place], [facility]83 Special Librarian: Lakhwinder Tim MD MCH (RBC) [Entitic mass] 28.6 pg Normal 25.2-33.5 [facility] Comment on above: Performed By: #### C DP #### [facility] [address] [place], [facility]83 Special Librarian: Lakhwinder Tim MD MCHC (RBC) [Mass/Vol] 32.6 g/dL Normal 28.4-34.8 [facility] Comment on above: Performed By: #### C DP #### [address] [place], [facility]83 Special Librarian: Lakhwinder Tim MD MCV (RBC) [Entitic vol] 87.7 fL Normal 82.6-102.9 [facility] Comment on above: Performed By: #### C DP #### [address] [place], [place] [address] Special Librarian: Lakhwinder Tim MD Monocytes (Bld) [#/Vol] 0.39 10*3/uL Normal 0.10-1.20 [facility] Comment on above: Performed By: #### C DP #### [address] [place], [place] [address] Special Librarian: Lakhwinder Tim MD Monocytes/100 WBC (Bld) 9 % Normal 3-12 [facility] Comment on above: Performed By: #### C DP #### [address] [place], [place] [address] Special Librarian: Lakhwinder Tim MD Neutrophil (Seg) 38 % Normal 36-65 [facility] Comment on above: Performed By: #### C DP #### [address] [place], [place] [address] Special Librarian: Lakhwinder Tim MD NRBC Automated 0.0 per [address] [facility] Comment on above: Performed By: #### C DP #### [address] [place], [place] [address] Special Librarian: Lakhwinder Tim MD Platelet mean volume (Bld) [Entitic vol] 9.7 fL Normal 8.1-13.5 [facility] Comment on above: Performed By: #### C DP #### [facility] [address] [place], [place] [id number] Special Librarian: Lakhwinder Tim MD Platelets (Bld) [#/Vol] 204 10*3/uL Normal 138-453 [facility] Comment on above: Performed By: #### C DP #### [facility] [address] [place], [place] [id number] Special Librarian: Lakhwinder Tim MD RBC (Bld) [#/Vol] 3.25 10*6/uL Low 3.95-5.11 [facility] Comment on above: Performed By: #### C DP #### [facility] [address] [place], [place] [id number] Special Librarian: Lakhwinder Tim MD WBC (Bld) [#/Vol] 4.2 10*3/uL Normal 3.5-11.3 [facility] Comment on above: Performed By: #### C DP #### [facility] [address] [place] [address] [place] [address] Special Librarian: Lakhwinder Tim MD Comp Metabolic Pr/rfx MGon 1 0- Albumin [Mass/Vol] 3.2 g/dL Low 3.5-5.2 [facility] Comment on above: Performed By: #### C DP #### [facility] [address] [place], [place] [id number] Special Librarian: Lakhwinder Tim MD Albumin/Glob Ratio 1.1 Normal 1.0-2.5 [facility] Comment on above: Performed By: #### C DP #### [facility] [address] [place] [address] Special Librarian: Lakhwinder Tim MD Alkaline Phos 75 U/L Normal 35-104 [facility] Comment on above: Performed By: #### C DP #### [facility] [address] [place], [place] [id number] Special Librarian: Lakhwinder Tim MD ALT [Catalytic activity/Vol] 10 U/L Normal 10-35 [facility] Comment on above: Performed By: #### C DP #### [facility] [address] [place], [place] 485[address]83 Special Librarian: Lakhwinder Tim MD Anion gap [Moles/Vol] 6 mmol/L Low 9-16 [facility] Comment on above: Performed By: #### C DP #### [facility] [address] [place], [place] [phone] Special Librarian: Lakhwinder Tim MD AST [Catalytic activity/Vol] 10 U/L Normal 10-35 [facility] Comment on above: Performed By: #### C DP #### [facility] [address] [place] [address] [place] [place], [place] [id number] Special Librarian: Lakhwinder Tim MD Bilirubin [Mass/Vol] mg/dL Normal 0.00-1.20 [facility] Comment on above: Performed By: #### C DP #### [facility] [address] [place] [address] [place] [place], [place] 1653683 Special Librarian: Lakhwinder Tim MD BUN/CRE Ratio 10 Normal 9-20 [facility] Comment on above: Performed By: #### C DP #### [facility] [address] [place], [place] 1267183 Special Librarian: Lakhwinder Tim MD Calcium [Mass/Vol] 8.6 mg/dL Normal 8.6-10.4 [facility] Comment on above: Performed By: #### C DP #### [facility] [address] [place] [address] Special Librarian: Lakhwinder Tim MD Chloride [Moles/Vol] 104 mmol/L Normal 98-107 [facility] Comment on above: Performed By: #### C DP #### [facility] [address] [place] [address] Special Librarian: Lakhwinder Tim MD CO2 [Moles/Vol] 28 mmol/L Normal 20-31 [facility] Comment on above: Performed By: #### C DP #### [facility] [address] [place] [address] Special Librarian: Lakhwinder Tim MD Creatinine [Mass/Vol] 0.5 mg/dL Normal 0.50-0.90 [facility] Comment on above: Performed By: #### C DP #### [facility] [address] [place] [address] Special Librarian: Lakhwinder Tim MD GFR/1.73 sq M.predicted among non-blacks MDRD (S/P/Bld) [Vol rate/Area] mL/min/{1.73_m2} Normal >60 [facility] Comment on above: Result Comment: These [...] secretion. Performed By: #### C DP #### [facility] [address] [place] [address] Special Librarian: Lakhwinder Tim MD Glucose [Mass/Vol] 89 mg/dL Normal 74-99 [facility] Comment on above: Performed By: #### C DP #### [facility] [address] [place] [address] Special Librarian: Lakhwinder Tim MD Potassium [Moles/Vol] 3.8 mmol/L Normal 3.7-5.3 [facility] Comment on above: Performed By: #### C DP #### [facility] [address] [place] [address] Special Librarian: Lakhwinder Tim MD Protein [Mass/Vol] 6.2 g/dL Low 6.6-8.7 [facility] Comment on above: Performed By: #### C DP #### [facility] [address] [place] [address] Special Librarian: Lakhwinder Tim MD Sodium [Moles/Vol] 138 mmol/L Normal 136-145 [facility] Comment on above: Performed By: #### C DP #### [facility] [address] [place] [address] Special Librarian: Lakhwinder Tim MD Urea nitrogen [Mass/Vol] 5 mg/dL Low 6-20 [facility] Comment on above: Performed By: #### C DP #### [facility] [address] [place] [address] Special Librarian: Lakhwinder Tim MD Comprehensive Metabolic Pane l w/ Reflex to MGon 04-15-2024 Albumin [Mass/Vol] 3.2 g/dL Low 3.5 - 5.2 g/dL [facility] Albumin/Globulin [Mass ratio] 1.1 {ratio} 1.0 - 2.5 [facility] ALP [Catalytic activity/Vol] 75 U/L 35 - 104 U/L [facility] ALT [Catalytic activity/Vol] 10 U/L 10 - 35 U/L [facility] Anion gap [Moles/Vol] 6 mmol/L Low 9 - 16 mmol/L [facility] AST [Catalytic activity/Vol] 10 U/L 10 - 35 U/L [facility] Bilirubin [Mass/Vol] mg/dL 0.00 - 1.20 mg/dL [facility] Calcium [Mass/Vol] 8.6 mg/dL 8.6 - 10. 4 mg/dL [facility] Chloride [Moles/Vol] 104 mmol/L 98 - 10 7 mmol/L [facility] CO2 [Moles/Vol] 28 mmol/L 20 - 31 mmol/L [facility] Creatinine [Mass/Vol] 0.5 mg/dL 0.50 - 0.90 mg/dL [facility] Est, Love Van Rate - PINF [facility] Comment on above: These results are [...] [Mass/Vol] 89 mg/dL 74 - 99 mg/dL [facility] Interpretation and review of laboratory results Abnormal [facility] Potassium [Moles/Vol] 3.8 mmol/L 3.7 - 5.3 mmol/L [facility] Protein [Mass/Vol] 6.2 g/dL Low 6.6 - 8.7 g/dL [facility] Sodium [Moles/Vol] 138 mmol/L 136 - 145 mmol/L [facility] Urea nitrogen [Mass/Vol] 5 mg/dL Low 6 - 20 mg/dL [facility] Urea nitrogen/Creatinine [Mass ratio] 10 mg/mg 9 - 20 [facility] CBC auto differentialon 03-20 Basophils (Bld) [#/Vol] [facility] Basophils/100 WBC (Bld) 0 % 0 - 2 % [facility] Eosinophils (Bld) [#/Vol] 0.28 10*3/uL [facility] Eosinophils/100 WBC (Bld) 6 % High 1 - 4 % [facility] Erythrocyte distribution width (RBC) [Ratio] 13.2 % 11.8 - 14.4 % [facility] Hematocrit (Bld) [Volume fraction] 27.5 % Low 36.3 - 47.1 % [facility] Hemoglobin (Bld) [Mass/Vol] 8.8 g/dL Low 11.9 - 15.1 g/dL [facility] Immature granulocytes (Bld) [#/Vol] [facility] Immature granulocytes/100 WBC (Bld) 0 % 0 [facility] Interpretation and review of laboratory results Abnormal [facility] Lymphocytes/100 WBC (Bld) 35 % 24 - 43 % [facility] Lymphocytes/100 WBC (Bld) 1.62 % [facility] MCH (RBC) [Entitic mass] 28.2 pg 25.2 - 33.5 pg [facility] MCHC (RBC) [Mass/Vol] 32.0 g/dL 28.4 - 34.8 g/dL [facility] MCV (RBC) [Entitic vol] 88.1 fL 82.6 - 102.9 fL [facility] Monocytes/100 WBC (Bld) 10 % 3 - 12 % [facility] Monocytes/100 WBC (Bld) 0.47 % [facility] Neutrophils/100 WBC (Bld) 49 % 36 - 65 % [facility] Nucleated RBC/100 WBC (Bld) [Ratio] 0.0 % 0.0 per 100 WBC [facility] Platelet mean volume (Bld) [Entitic vol] 10.3 fL 8.1 - 13.5 fL [facility] Platelets (Bld) [#/Vol] 183 10*3/uL [facility] RBC (Bld) [#/Vol] 3.12 10*6/uL Low 3.95 - 5.1 1 m/uL [facility] Segmented neutrophils/100 WBC (Bld) 2.22 % [facility] WBC other (Bld) [#/Vol] 4.6 [facility] CBC with Diffon 04-14-2024 Abs. Basophil <0.03 Normal 0.00-0.20 [facility] Comment on above: Performed By: #### C P, LIP, CDP #### [facility] [address] [place] [address] Special Librarian: Lakhwinder Tim MD Abs.Imm.Granulocyte <0.03 Normal 0.00-0.30 [facility] Comment on above: Performed By: #### C P, LIP, CDP #### [facility] [address] [place], [place] [address] Special Librarian: Lakhwinder Tim MD Abs.Neutrophil (Seg) 2.22 k/uL Normal 1.50-8.10 [facility] Comment on above: Performed By: #### C P, LIP, CDP #### [facility] [address] [place] [address] [place], [facility]83 Special Librarian: Lakhwinder Tim MD Basophils/100 WBC (Bld) 0 % Normal 0-2 [facility] Comment on above: Performed By: #### C P, LIP, CDP #### [address] [place], [facility]83 Special Librarian: Lakhwinder Tim MD Eosinophils (Bld) [#/Vol] 0.28 10*3/uL Normal 0.00-0.44 [facility] Comment on above: Performed By: #### C P, LIP, CDP #### [address] [place], [place] [address] Special Librarian: Lakhwinder Tim MD Eosinophils/100 WBC (Bld) 6 % High 1-4 [facility] Comment on above: Performed By: #### C P, LIP, CDP #### [address] [place], [facility]83 Special Librarian: Lakhwinder Tim MD Erythrocyte distribution width (RBC) [Ratio] 13.2 % Normal 11.8-14.4 [facility] Comment on above: Performed By: #### C P, LIP, CDP #### [address] [place], [facility]83 Special Librarian: Lakhwinder Tim MD Hematocrit (Bld) [Volume fraction] 27.5 % Low 36.3-47.1 [facility] Comment on above: Performed By: #### C P, LIP, CDP #### [address] [place], [facility]83 Special Librarian: Lakhwinder Tim MD Hemoglobin (Bld) [Mass/Vol] 8.8 g/dL Low 11.9-15.1 [facility] Comment on above: Performed By: #### C P, LIP, CDP #### [address] [place], [place] [id number] Special Librarian: Lakhwinder Tim MD Immature granulocytes/100 WBC (Bld) 0 % Normal 0 [facility] Comment on above: Performed By: #### C P, LIP, CDP #### [address] [place] [address] Special Librarian: Lakhwinder Tim MD Lymphocytes (Bld) [#/Vol] 1.62 10*3/uL Normal 1.10-3.70 [facility] Comment on above: Performed By: #### C P, LIP, CDP #### [address] [place], [facility]83 Special Librarian: Lakhwinder Tim MD Lymphocytes/100 WBC (Bld) 35 % Normal 24-43 [facility] Comment on above: Performed By: #### C P, LIP, CDP #### [address] [place], [place] [phone] Special Librarian: Lakhwinder Tim MD MCH (RBC) [Entitic mass] 28.2 pg Normal 25.2-33.5 [facility] Comment on above: Performed By: #### C P, LIP, CDP #### [address] [place], [place] 9073783 Special Librarian: Lakhwinder Tim MD MCHC (RBC) [Mass/Vol] 32.0 g/dL Normal 28.4-34.8 [facility] Comment on above: Performed By: #### C P, LIP, CDP #### [address] [place], [place] [id number] Special Librarian: Lakhwinder Tim MD MCV (RBC) [Entitic vol] 88.1 fL Normal 82.6-102.9 [facility] Comment on above: Performed By: #### C P, LIP, CDP #### [facility] [address] [place] [address] Special Librarian: Lakhwinder Tim MD Monocytes (Bld) [#/Vol] 0.47 10*3/uL Normal 0.10-1.20 [facility] Comment on above: Performed By: #### C P, LIP, CDP #### [facility] [address] [place], [place] [phone] Special Librarian: Lakhwinder Tim MD Monocytes/100 WBC (Bld) 10 % Normal 3-12 [facility] Comment on above: Performed By: #### C P, LIP, CDP #### [address] [place], [facility]83 Special Librarian: Lakhwinder Tim MD Neutrophil (Seg) 49 % Normal 36-65 [facility] Comment on above: Performed By: #### C P, LIP, CDP #### [address] [place], [place] [id number] Special Librarian: Lakhwinder Tim MD NRBC Automated 0.0 per [address] [facility] Comment on above: Performed By: #### C P, LIP, CDP #### [address] [place], [place] [address]83 Special Librarian: Lakhwinder Tim MD Platelet mean volume (Bld) [Entitic vol] 10.3 fL Normal 8.1-13.5 [facility] Comment on above: Performed By: #### C P, LIP, CDP #### [address] [place] [address] Special Librarian: Lakhwinder Tim MD Platelets (Bld) [#/Vol] 183 10*3/uL Normal 138-453 [facility] Comment on above: Performed By: #### C P, LIP, CDP #### [facility] [address] [place], [place] [id number] Special Librarian: Lakhwinder Tim MD RBC (Bld) [#/Vol] 3.12 10*6/uL Low 3.95-5.11 [facility] Comment on above: Performed By: #### C P, LIP, CDP #### [facility] [address] [place], [place] [id number] Special Librarian: Lakhwinder Tim MD WBC (Bld) [#/Vol] 4.6 10*3/uL Normal 3.5-11.3 [facility] Comment on above: Performed By: #### C P, LIP, CDP #### [facility] [address] [place], [place] [phone] Special Librarian: Lakhwinder Tim MD Comp Metabolic Pr/rfx MGon 1 0- Albumin [Mass/Vol] 3.1 g/dL Low 3.5-5.2 [facility] Comment on above: Performed By: #### C P, LIP, CDP #### [facility] [address] [place], [place] [phone] Special Librarian: Lakhwinder Tim MD Albumin/Glob Ratio 1.1 Normal 1.0-2.5 [facility] Comment on above: Performed By: #### C P, LIP, CDP #### [facility] [address] [place], [place] [phone] Special Librarian: Lakhwinder Tim MD Alkaline Phos 62 U/L Normal 35-104 [facility] Comment on above: Performed By: #### C P, LIP, CDP #### [facility] [address] [place] [address] Special Librarian: Lakhwinder Tim MD ALT [Catalytic activity/Vol] 11 U/L Normal 10-35 [facility] Comment on above: Performed By: #### C P, LIP, CDP #### [facility] [address] [place], [place] [id number] Special Librarian: Lakhwinder Tim MD Anion gap [Moles/Vol] 8 mmol/L Low 9-16 [facility] Comment on above: Performed By: #### C P, LIP, CDP #### [facility] [address] [place], [place] [id number] Special Librarian: Lakhwinder Tim MD AST [Catalytic activity/Vol] 12 U/L Normal 10-35 [facility] Comment on above: Performed By: #### C P, LIP, CDP #### [facility] [address] [place], [place] [id number] Special Librarian: Lakhwinder Tim MD Bilirubin [Mass/Vol] 0.3 mg/dL Normal 0.00-1.20 [facility] Comment on above: Performed By: #### C P, LIP, CDP #### [facility] [address] [place] [address] [place] [place], [place] [id number] Special Librarian: Lakhwinder Tim MD BUN/CRE Ratio 10 Normal 9-20 [facility] Comment on above: Performed By: #### C P, LIP, CDP #### [facility] [address] [place] [address] [place] [place], [place] [id number] Special Librarian: Lakhwinder Tim MD Calcium [Mass/Vol] 8.4 mg/dL Low 8.6-10.4 [facility] Comment on above: Performed By: #### C P, LIP, CDP #### [facility] [address] [place], [place] [id number] Special Librarian: Lakhwinder Tim MD Chloride [Moles/Vol] 104 mmol/L Normal 98-107 [facility] Comment on above: Performed By: #### C P, LIP, CDP #### [facility] [address] [place], [place] 1785183 Special Librarian: Lakhwinder Tim MD CO2 [Moles/Vol] 27 mmol/L Normal 20-31 [facility] Comment on above: Performed By: #### C P, LIP, CDP #### [facility] [address] [place] [address] Special Librarian: Lakhwinder Tim MD Creatinine [Mass/Vol] 0.4 mg/dL Low 0.50-0.90 [facility] Comment on above: Performed By: #### C P, LIP, CDP #### [facility] [address] [place] [address] Special Librarian: Lakhwinder Tim MD GFR/1.73 sq M.predicted among non-blacks MDRD (S/P/Bld) [Vol rate/Area] mL/min/{1.73_m2} Normal >60 [facility] Comment on above: Result Comment: These [...] By: #### C P, LIP, CDP #### [facility] [address] [place] [address] Special Librarian: Lakhwinder Tim MD Glucose [Mass/Vol] 93 mg/dL Normal 74-99 [facility] Comment on above: Performed By: #### C P, LIP, CDP #### [facility] [address] [place] [address] Special Librarian: Lakhwinder Tim MD Potassium [Moles/Vol] 3.4 mmol/L Low 3.7-5.3 [facility] Comment on above: Performed By: #### C P, LIP, CDP #### [facility] [address] [place] [address] Special Librarian: Lakhwinder Tim MD Protein [Mass/Vol] 5.9 g/dL Low 6.6-8.7 [facility] Comment on above: Performed By: #### C P, LIP, CDP #### [facility] [address] [place] [address] Special Librarian: Lakhwinder Tim MD Sodium [Moles/Vol] 139 mmol/L Normal 136-145 [facility] Comment on above: Performed By: #### C P, LIP, CDP #### [facility] [address] [place] [address] Special Librarian: Lakhwinder Tim MD Urea nitrogen [Mass/Vol] 4 mg/dL Low 6-20 [facility] Comment on above: Performed By: #### C P, LIP, CDP #### [facility] [address] [place] [address] Special Librarian: Lakhwinder Tim MD Comprehensive Metabolic Pane l w/ Reflex to MGon 04-14-2024 Albumin [Mass/Vol] 3.1 g/dL Low 3.5 - 5.2 g/dL [facility] Albumin/Globulin [Mass ratio] 1.1 {ratio} 1.0 - 2.5 [facility] ALP [Catalytic activity/Vol] 62 U/L 35 - 104 U/L [facility] ALT [Catalytic activity/Vol] 11 U/L 10 - 35 U/L [facility] Anion gap [Moles/Vol] 8 mmol/L Low 9 - 16 mmol/L [facility] AST [Catalytic activity/Vol] 12 U/L 10 - 35 U/L [facility] Bilirubin [Mass/Vol] 0.3 mg/dL 0.00 - 1.20 mg/dL [facility] Calcium [Mass/Vol] 8.4 mg/dL Low 8.6 - 10. 4 mg/dL [facility] Chloride [Moles/Vol] 104 mmol/L 98 - 10 7 mmol/L [facility] CO2 [Moles/Vol] 27 mmol/L 20 - 31 mmol/L [facility] Creatinine [Mass/Vol] 0.4 mg/dL Low 0.50 - 0.90 mg/dL [facility] [employer] Rate - PINF [facility] Comment on above: These results are [...] [Mass/Vol] 93 mg/dL 74 - 99 mg/dL [facility] Interpretation and review of laboratory results Abnormal [facility] Potassium [Moles/Vol] 3.4 mmol/L Low 3.7 - 5.3 mmol/L [facility] Protein [Mass/Vol] 5.9 g/dL Low 6.6 - 8.7 g/dL [facility] Sodium [Moles/Vol] 139 mmol/L 136 - 145 mmol/L [facility] Urea nitrogen [Mass/Vol] 4 mg/dL Low 6 - 20 mg/dL [facility] Urea nitrogen/Creatinine [Mass ratio] 10 mg/mg 9 - 20 [facility] Magnesiumon 04-14-2024 Magnesium [Mass/Vol] 1.7 mg/dL 1.6 - 2 .6 mg/dL [facility] Magnesium [Mass/Vol] 1.7 mg/dL Normal 1.6-2.6 [facility] Comment on above: Performed By: #### C P, LIP, CDP #### [facility] [address] [place] [address] Special Librarian: Lakhwinder Tim MD XR ABDOMEN (KUB) (SINGLE [...] IV, MD 04/14/[address] [facility] XR Abdomen Single viewon Nonspecific, nonobstructed bowel gas pattern. [facility] CONSOLIDATED EXAMINATION: ONE SUPINE XRAY VIEW(S) OF [...] finding. IMPRESSION: Nonspecific, nonobstructed bowel gas pattern. [facility] Radiology Study observation (narrative) [facility] XR Abdomen Single viewOrdere d By: Asim Olsen on 04-14-2024 [facility] Work Phone: CBC auto differentialon 03-20 Basophils (Bld) [#/Vol] [facility] Basophils/100 WBC (Bld) 0 % 0 - 2 % [facility] Eosinophils (Bld) [#/Vol] 0.10 10*3/uL [facility] Eosinophils/100 WBC (Bld) 2 % 1 - 4 % [facility] Erythrocyte distribution width (RBC) [Ratio] 13.4 % 11.8 - 14.4 % [facility] Hematocrit (Bld) [Volume fraction] 29.0 % Low 36.3 - 47.1 % [facility] Hemoglobin (Bld) [Mass/Vol] 9.3 g/dL Low 11.9 - 15.1 g/dL [facility] Immature granulocytes (Bld) [#/Vol] [facility] Immature granulocytes/100 WBC (Bld) 0 % 0 [facility] Interpretation and review of laboratory results Abnormal [facility] Lymphocytes/100 WBC (Bld) 25 % 24 - 43 % [facility] Lymphocytes/100 WBC (Bld) 1.44 % [facility] MCH (RBC) [Entitic mass] 28.2 pg 25.2 - 33.5 pg [facility] MCHC (RBC) [Mass/Vol] 32.1 g/dL 28.4 - 34.8 g/dL [facility] MCV (RBC) [Entitic vol] 87.9 fL 82.6 - 102.9 fL [facility] Monocytes/100 WBC (Bld) 11 % 3 - 12 % [facility] Monocytes/100 WBC (Bld) 0.64 % [facility] Neutrophils/100 WBC (Bld) 62 % 36 - 65 % [facility] Nucleated RBC/100 WBC (Bld) [Ratio] 0.0 % 0.0 per 100 WBC [facility] Platelet mean volume (Bld) [Entitic vol] 10.5 fL 8.1 - 13.5 fL [facility] Platelets (Bld) [#/Vol] 159 10*3/uL [facility] RBC (Bld) [#/Vol] 3.30 10*6/uL Low 3.95 - 5.1 1 m/uL [facility] Segmented neutrophils/100 WBC (Bld) 3.49 % [facility] WBC other (Bld) [#/Vol] 5.7 [facility] CBC with Diffon 04-13-2024 Abs. Basophil <0.03 Normal 0.00-0.20 [facility] Comment on above: Performed By: #### C P, LIP, CDP #### [facility] [address] [place] [address] Dr[address] [place], [place] [address] Special Librarian: Lakhwinder Tim MD Abs.Imm.Granulocyte <0.03 Normal 0.00-0.30 [facility] Comment on above: Performed By: #### C P, LIP, CDP #### [address] [place], [place] [address] Special Librarian: Lakhwinder Tim MD Abs.Neutrophil (Seg) 3.49 k/uL Normal 1.50-8.10 [facility] Comment on above: Performed By: #### C P, LIP, CDP #### [address] [address] Special Librarian: Lakhwinder Tim MD Basophils/100 WBC (Bld) 0 % Normal 0-2 [facility] Comment on above: Performed By: #### C P, LIP, CDP #### [address] [place], [place] [address] Special Librarian: Lakhwinder Tim MD Eosinophils (Bld) [#/Vol] 0.10 10*3/uL Normal 0.00-0.44 [facility] Comment on above: Performed By: #### C P, LIP, CDP #### [address] [place], [place] [address] Special Librarian: Lakhwinder Tim MD Eosinophils/100 WBC (Bld) 2 % Normal 1-4 [facility] Comment on above: Performed By: #### C P, LIP, CDP #### [address] [place], [facility]83 Special Librarian: Lakhwinder Tim MD Erythrocyte distribution width (RBC) [Ratio] 13.4 % Normal 11.8-14.4 [facility] Comment on above: Performed By: #### C P, LIP, CDP #### [facility] [address] [place], [place] [phone] Special Librarian: Lakhwinder Tim MD Hematocrit (Bld) [Volume fraction] 29.0 % Low 36.3-47.1 [facility] Comment on above: Performed By: #### C P, LIP, CDP #### [facility] [address] [place], [facility]83 Special Librarian: Lakhwinder Tim MD Hemoglobin (Bld) [Mass/Vol] 9.3 g/dL Low 11.9-15.1 [facility] Comment on above: Performed By: #### C P, LIP, CDP #### [address] [place], [facility]83 Special Librarian: Lakhwinder Tim MD Immature granulocytes/100 WBC (Bld) 0 % Normal 0 [facility] Comment on above: Performed By: #### C P, LIP, CDP #### [address] [place], [facility]83 Special Librarian: Lakhwinder Tim MD Lymphocytes (Bld) [#/Vol] 1.44 10*3/uL Normal 1.10-3.70 [facility] Comment on above: Performed By: #### C P, LIP, CDP #### [address] [place] [address] Special Librarian: Lakhwinder Tim MD Lymphocytes/100 WBC (Bld) 25 % Normal 24-43 [facility] Comment on above: Performed By: #### C P, LIP, CDP #### [address] [place] [address] Special Librarian: Lakhwinder Tim MD MCH (RBC) [Entitic mass] 28.2 pg Normal 25.2-33.5 [facility] Comment on above: Performed By: #### C P, LIP, CDP #### [address] [place], [facility]83 Special Librarian: Lakhwinder Tim MD MCHC (RBC) [Mass/Vol] 32.1 g/dL Normal 28.4-34.8 [facility] Comment on above: Performed By: #### C P, LIP, CDP #### [facility] [address] [place] [address] [place] [address] Special Librarian: Lakhwinder Tim MD MCV (RBC) [Entitic vol] 87.9 fL Normal 82.6-102.9 [facility] Comment on above: Performed By: #### C P, LIP, CDP #### [address] [place], [place] [address] Special Librarian: Lakhwinder Tim MD Monocytes (Bld) [#/Vol] 0.64 10*3/uL Normal 0.10-1.20 [facility] Comment on above: Performed By: #### C P, LIP, CDP #### [address] [place], [facility]83 Special Librarian: Lakhwinder Tim MD Monocytes/100 WBC (Bld) 11 % Normal 3-12 [facility] Comment on above: Performed By: #### C P, LIP, CDP #### [address] [place], [facility]83 Special Librarian: Lakhwinder Tim MD Neutrophil (Seg) 62 % Normal 36-65 [facility] Comment on above: Performed By: #### C P, LIP, CDP #### [facility] [address] [place], [place] [id number] Special Librarian: Lakhwinder Tim MD NRBC Automated 0.0 per [address] [facility] Comment on above: Performed By: #### C P, LIP, CDP #### [address] [place], [facility]83 Special Librarian: Lakhwinder Tim MD Platelet mean volume (Bld) [Entitic vol] 10.5 fL Normal 8.1-13.5 [facility] Comment on above: Performed By: #### C P, LIP, CDP #### [facility] [address] [place], [place] [address] Special Librarian: Lakhwinder Tim MD Platelets (Bld) [#/Vol] 159 10*3/uL Normal 138-453 [facility] Comment on above: Performed By: #### C P, LIP, CDP #### [facility] [address] [place] [address] Special Librarian: Lakhwinder Tim MD RBC (Bld) [#/Vol] 3.30 10*6/uL Low 3.95-5.11 [facility] Comment on above: Performed By: #### C P, LIP, CDP #### [facility] [address] [place] [address] Special Librarian: Lakhwinder Tim MD WBC (Bld) [#/Vol] 5.7 10*3/uL Normal 3.5-11.3 [facility] Comment on above: Performed By: #### C P, LIP, CDP #### [facility] [address] [place], [place] [id number] Special Librarian: Lakhwinder Tim MD Comp Metabolic Pr/rfx MGon 1 0- Albumin [Mass/Vol] 3.2 g/dL Low 3.5-5.2 [facility] Comment on above: Performed By: #### C P, LIP, CDP #### [facility] [address] [place], [place] [id number] Special Librarian: Lakhwinder Tim MD Albumin/Glob Ratio 1.2 Normal 1.0-2.5 [facility] Comment on above: Performed By: #### C P, LIP, CDP #### [facility] [address] [place], [place] [phone] Special Librarian: Lakhwinder Tim MD Alkaline Phos 46 U/L Normal 35-104 [facility] Comment on above: Performed By: #### C P, LIP, CDP #### [facility] [address] [place], [place] 9449483 Special Librarian: Lakhwinder Tim MD ALT [Catalytic activity/Vol] 9 U/L Low 10-35 [facility] Comment on above: Performed By: #### C P, LIP, CDP #### [facility] [address] [place], [place] [phone] Special Librarian: Lakhwinder Tim MD Anion gap [Moles/Vol] 9 mmol/L Normal 9-16 [facility] Comment on above: Performed By: #### C P, LIP, CDP #### [facility] [address] [place], [place] 2342783 Special Librarian: Lakhwinder Tim MD AST [Catalytic activity/Vol] 11 U/L Normal 10-35 [facility] Comment on above: Performed By: #### C P, LIP, CDP #### [facility] [address] [place], [place] 5943383 Special Librarian: Lakhwinder Tim MD Bilirubin [Mass/Vol] 0.4 mg/dL Normal 0.00-1.20 [facility] Comment on above: Performed By: #### C P, LIP, CDP #### [facility] [address] [place], [place] 35[address]83 Special Librarian: Lakhwinder Tim MD BUN/CRE Ratio 15 Normal 9-20 [facility] Comment on above: Performed By: #### C P, LIP, CDP #### [facility] [address] [place], [place] [phone] Special Librarian: Lakhwinder Tim MD Calcium [Mass/Vol] 8.4 mg/dL Low 8.6-10.4 [facility] Comment on above: Performed By: #### C P, LIP, CDP #### [facility] [address] [place], [place] 4779383 Special Librarian: Lakhwinder Tim MD Chloride [Moles/Vol] 104 mmol/L Normal 98-107 [facility] Comment on above: Performed By: #### C P, LIP, CDP #### [facility] [address] [place], [place] 074[address]83 Special Librarian: Lakhwinder Tim MD CO2 [Moles/Vol] 26 mmol/L Normal 20-31 [facility] Comment on above: Performed By: #### C P, LIP, CDP #### [facility] [address] [place], [place] 1089783 Special Librarian: Lakhwinder Tim MD Creatinine [Mass/Vol] 0.4 mg/dL Low 0.50-0.90 [facility] Comment on above: Performed By: #### C P, LIP, CDP #### [facility] [address] [place], [place] 8493383 Special Librarian: Lakhwinder Tim MD GFR/1.73 sq M.predicted among non-blacks MDRD (S/P/Bld) [Vol rate/Area] mL/min/{1.73_m2} Normal >60 [facility] Comment on above: Result Comment: These [...] By: #### C P, LIP, CDP #### [facility] [address] [place] [address] Special Librarian: Lakhwinder Tim MD Glucose [Mass/Vol] 95 mg/dL Normal 74-99 [facility] Comment on above: Performed By: #### C P, LIP, CDP #### [facility] [address] [place], [place] 816[address]83 Special Librarian: Lakhwinder Tim MD Potassium [Moles/Vol] 3.3 mmol/L Low 3.7-5.3 [facility] Comment on above: Performed By: #### C P, LIP, CDP #### [facility] [address] [place], [place] 4004283 Special Librarian: Lakhwinder Tim MD Protein [Mass/Vol] 5.9 g/dL Low 6.6-8.7 [facility] Comment on above: Performed By: #### C P, LIP, CDP #### [facility] [address] [place], [place] 26[address]83 Special Librarian: Lakhwinder Tim MD Sodium [Moles/Vol] 139 mmol/L Normal 136-145 [facility] Comment on above: Performed By: #### C P, LIP, CDP #### [facility] [address] [place], [place] [phone] Special Librarian: Lakhwinder Tim MD Urea nitrogen [Mass/Vol] 6 mg/dL Normal 6-20 [facility] Comment on above: Performed By: #### C P, LIP, CDP #### [facility] [address] [place] [address] Special Librarian: Lakhwinder Tim MD Comprehensive Metabolic Pane l w/ Reflex to MGon 04-13-2024 Albumin [Mass/Vol] 3.2 g/dL Low 3.5 - 5.2 g/dL [facility] Albumin/Globulin [Mass ratio] 1.2 {ratio} 1.0 - 2.5 [facility] ALP [Catalytic activity/Vol] 46 U/L 35 - 104 U/L [facility] ALT [Catalytic activity/Vol] 9 U/L Low 10 - 35 U/L [facility] Anion gap [Moles/Vol] 9 mmol/L 9 - 16 mmol/L [facility] AST [Catalytic activity/Vol] 11 U/L 10 - 35 U/L [facility] Bilirubin [Mass/Vol] 0.4 mg/dL 0.00 - 1.20 mg/dL [facility] Calcium [Mass/Vol] 8.4 mg/dL Low 8.6 - 10. 4 mg/dL [facility] Chloride [Moles/Vol] 104 mmol/L 98 - 10 7 mmol/L [facility] CO2 [Moles/Vol] 26 mmol/L 20 - 31 mmol/L [facility] Creatinine [Mass/Vol] 0.4 mg/dL Low 0.50 - 0.90 mg/dL [facility] Est, [employer] Rate - PINF [facility] Comment on above: These results are [...] [Mass/Vol] 95 mg/dL 74 - 99 mg/dL [facility] Interpretation and review of laboratory results Abnormal [facility] Potassium [Moles/Vol] 3.3 mmol/L Low 3.7 - 5.3 mmol/L [facility] Protein [Mass/Vol] 5.9 g/dL Low 6.6 - 8.7 g/dL [facility] Sodium [Moles/Vol] 139 mmol/L 136 - 145 mmol/L [facility] Urea nitrogen [Mass/Vol] 6 mg/dL 6 - 20 mg/dL [facility] Urea nitrogen/Creatinine [Mass ratio] 15 mg/mg 9 - 20 [facility] Magnesiumon 04-13-2024 Magnesium [Mass/Vol] 1.6 mg/dL 1.6 - 2 .6 mg/dL [facility] Magnesium [Mass/Vol] 1.6 mg/dL Normal 1.6-2.6 [facility] Comment on above: Performed By: #### C P, LIP, CDP #### [facility] [address] [place] [address] Special Librarian: Lakhwinder Tim MD XR ABDOMEN (KUB) (SINGLE AP VIEW)on 04-13-2024 XR ABDOMEN (KUB) (SINGLE AP VIEW) EXAMINATION: ONE SUPINE XRAY VIEW(S) OF THE ABDOMEN 04/13/2024 7:21 am COMPARISON: Solid Waste Engineer film of a CT abdomen of 10 [...] Price MD 04/13/[address] [facility] XR Abdomen Single viewon 1. Nonobstructive uriel wel gas pattern. 2. Mildly increased colonic gas likely related to minimal ileus. [facility] CONSOLIDATED EXAMINATION: ONE SUPINE XRAY VIEW(S) OF THE ABDOMEN 04/13/2024 7:21 am COMPARISON: Solid Waste Engineer film of a CT abdomen of 10 [...] OF THE ABDOMEN 04/13/2024 7:21 am COMPARISON: Solid Waste Engineer film of a CT abdomen of 10 [...] colonic gas likely related to minimal ileus. [facility] Study observation (narrative) [facility] XR Abdomen Single viewOrdere d By: Maeve Dee on 04-13-2024 [facility] Work Phone: CBC auto differentialon 03-20 Basophils (Bld) [#/Vol] [facility] Basophils/100 WBC (Bld) 0 % 0 - 2 % [facility] Eosinophils (Bld) [#/Vol] [facility] Eosinophils/100 WBC (Bld) 0 % Low 1 - 4 % [facility] Erythrocyte distribution width (RBC) [Ratio] 13.4 % 11.8 - 14.4 % [facility] Hematocrit (Bld) [Volume fraction] 28.0 % Low 36.3 - 47.1 % [facility] Hemoglobin (Bld) [Mass/Vol] 8.9 g/dL Low 11.9 - 15.1 g/dL [facility] Immature granulocytes (Bld) [#/Vol] [facility] Immature granulocytes/100 WBC (Bld) 0 % 0 [facility] Interpretation and review of laboratory results Abnormal [facility] Lymphocytes/100 WBC (Bld) 33 % 24 - 43 % [facility] Lymphocytes/100 WBC (Bld) 2.08 % [facility] MCH (RBC) [Entitic mass] 28.1 pg 25.2 - 33.5 pg [facility] MCHC (RBC) [Mass/Vol] 31.8 g/dL 28.4 - 34.8 g/dL [facility] MCV (RBC) [Entitic vol] 88.3 fL 82.6 - 102.9 fL [facility] Monocytes/100 WBC (Bld) 9 % 3 - 12 % [facility] Monocytes/100 WBC (Bld) 0.55 % [facility] Neutrophils/100 WBC (Bld) 58 % 36 - 65 % [facility] Nucleated RBC/100 WBC (Bld) [Ratio] 0.0 % 0.0 per 100 WBC [facility] Platelet mean volume (Bld) [Entitic vol] 10.7 fL 8.1 - 13.5 fL [facility] Platelets (Bld) [#/Vol] 139 10*3/uL [facility] RBC (Bld) [#/Vol] 3.17 10*6/uL Low 3.95 - 5.1 1 m/uL [facility] Segmented neutrophils/100 WBC (Bld) 3.71 % [facility] WBC other (Bld) [#/Vol] 6.4 [facility] CBC with Diffon 04-12-2024 Abs. Basophil <0.03 Normal 0.00-0.20 [facility] Comment on above: Performed By: #### C DP #### [facility] [address] [place] [address] [place] [address] Special Librarian: Lakhwinder Tim MD Abs. Eosinophil <0.03 Normal 0.00-0.44 [facility] Comment on above: Performed By: #### C DP #### [facility] [address] [place] [address] [place] [address] Special Librarian: Lakhwinder Tim MD Abs.Imm.Granulocyte <0.03 Normal 0.00-0.30 [facility] Comment on above: Performed By: #### C DP #### [facility] [address] [place] [address] [place] [address] Special Librarian: Lakhwinder Tim MD Abs.Neutrophil (Seg) 3.71 k/uL Normal 1.50-8.10 [facility] Comment on above: Performed By: #### C DP #### [facility] [address] [place] [address] Special Librarian: Lakhwinder Tim MD Basophils/100 WBC (Bld) 0 % Normal 0-2 [facility] Comment on above: Performed By: #### C DP #### [facility] [address] [place], [place] [phone] Special Librarian: Lakhwinder Tim MD Eosinophils/100 WBC (Bld) 0 % Low 1-4 [facility] Comment on above: Performed By: #### C DP #### [facility] [address] [place], [place] [phone] Special Librarian: Lakhwinder Tim MD Erythrocyte distribution width (RBC) [Ratio] 13.4 % Normal 11.8-14.4 [facility] Comment on above: Performed By: #### C DP #### [facility] [address] [place], [place] 797[address]83 Special Librarian: Lakhwinder Tim MD Hematocrit (Bld) [Volume fraction] 28.0 % Low 36.3-47.1 [facility] Comment on above: Performed By: #### C DP #### [facility] [address] [place] [address] [place] [place], [place] [phone] Special Librarian: Lakhwinder Tim MD Hemoglobin (Bld) [Mass/Vol] 8.9 g/dL Low 11.9-15.1 [facility] Comment on above: Performed By: #### C DP #### [address] [place], [place] [address]096783 Special Librarian: Lakhwinder Tim MD Immature granulocytes/100 WBC (Bld) 0 % Normal 0 [facility] Comment on above: Performed By: #### C DP #### [facility] [address] [place], [place] [id number] Special Librarian: Lakhwinder Tim MD Lymphocytes (Bld) [#/Vol] 2.08 10*3/uL Normal 1.10-3.70 [facility] Comment on above: Performed By: #### C DP #### [facility] [address] [place], [place] [phone] Special Librarian: Lakhwinder Tim MD Lymphocytes/100 WBC (Bld) 33 % Normal 24-43 [facility] Comment on above: Performed By: #### C DP #### [facility] [address] [place], [place] 1537583 Special Librarian: Lakhwinder Tim MD MCH (RBC) [Entitic mass] 28.1 pg Normal 25.2-33.5 [facility] Comment on above: Performed By: #### C DP #### [facility] [address] [place] [id number] Special Librarian: Lakhwinder Tim MD MCHC (RBC) [Mass/Vol] 31.8 g/dL Normal 28.4-34.8 [facility] Comment on above: Performed By: #### C DP #### [facility] [address] [place], [place] [id number] Special Librarian: Lakhwinder Tim MD MCV (RBC) [Entitic vol] 88.3 fL Normal 82.6-102.9 [facility] Comment on above: Performed By: #### C DP #### [facility] [address] [place], [place] [id number] Special Librarian: Lakhwinder Tim MD Monocytes (Bld) [#/Vol] 0.55 10*3/uL Normal 0.10-1.20 [facility] Comment on above: Performed By: #### C DP #### [facility] [address] [place], [facility]83 Special Librarian: Lakhwinder Tim MD Monocytes/100 WBC (Bld) 9 % Normal 3-12 [facility] Comment on above: Performed By: #### C DP #### [facility] [address] [place], [place] [id number] Special Librarian: Lakhwinder Tim MD Neutrophil (Seg) 58 % Normal 36-65 [facility] Comment on above: Performed By: #### C DP #### [facility] [address] [place] [facility]83 Special Librarian: Lakhwinder Tim MD NRBC Automated 0.0 per [address] [facility] Comment on above: Performed By: #### C DP #### [facility] [address] [place] [facility]83 Special Librarian: Lakhwinder Tim MD Platelet mean volume (Bld) [Entitic vol] 10.7 fL Normal 8.1-13.5 [facility] Comment on above: Performed By: #### C DP #### [facility] [address] [place] [address] Special Librarian: Lakhwinder Tim MD Platelets (Bld) [#/Vol] 139 10*3/uL Normal 138-453 [facility] Comment on above: Performed By: #### C DP #### [address] [place] [id number] Special Librarian: Lakhwinder Tim MD RBC (Bld) [#/Vol] 3.17 10*6/uL Low 3.95-5.11 [facility] Comment on above: Performed By: #### C DP #### [address] [place], [facility]83 Special Librarian: Lakhwinder Tim MD WBC (Bld) [#/Vol] 6.4 10*3/uL Normal 3.5-11.3 [facility] Comment on above: Performed By: #### C DP #### [address] [place], [facility]83 Special Librarian: Lakhwinder Tim MD Comp Metabolic Pr/rfx MGon 1 Albumin [Mass/Vol] 3.1 g/dL Low 3.5-5.2 [facility] Comment on above: Performed By: #### C DP #### [facility] [address] [place], [facility]83 Special Librarian: Lakhwinder Tim MD Albumin/Glob Ratio 1.2 Normal 1.0-2.5 [facility] Comment on above: Performed By: #### C DP #### [facility] [address] [place], [place] [address]83 Special Librarian: Lakhwinder Tim MD Alkaline Phos 41 U/L Normal 35-104 [facility] Comment on above: Performed By: #### C DP #### [facility] [address] [place], [place] [id number] Special Librarian: Lakhwinder Tim MD ALT [Catalytic activity/Vol] 11 U/L Normal 10-35 [facility] Comment on above: Performed By: #### C DP #### [facility] [address] [place], [place] [address]459783 Special Librarian: Lakhwinder Tim MD Anion gap [Moles/Vol] 9 mmol/L Normal 9-16 [facility] Comment on above: Performed By: #### C DP #### [facility] [address] [place] [address] Special Librarian: Lakhwinder Tim MD AST [Catalytic activity/Vol] 9 U/L Low 10-35 [facility] Comment on above: Performed By: #### C DP #### [facility] [address] [place], [place] 7707383 Special Librarian: Lakhwinder Tim MD Bilirubin [Mass/Vol] 0.3 mg/dL Normal 0.00-1.20 [facility] Comment on above: Performed By: #### C DP #### [facility] [address] [place], [place] [address]266[address] Special Librarian: Lakhwinder Tim MD BUN/CRE Ratio 24 High 9-20 [facility] Comment on above: Performed By: #### C DP #### [facility] [address] [place], [place] 923[address]83 Special Librarian: Lakhwinder Tim MD Calcium [Mass/Vol] 8.2 mg/dL Low 8.6-10.4 [facility] Comment on above: Performed By: #### C DP #### [facility] [address] [place], [place] [phone] Special Librarian: Lakhwindre Tim MD Chloride [Moles/Vol] 106 mmol/L Normal 98-107 [facility] Comment on above: Performed By: #### C DP #### [facility] [address] [place] [address] Special Librarian: Lakhwinder Tim MD CO2 [Moles/Vol] 24 mmol/L Normal 20-31 [facility] Comment on above: Performed By: #### C DP #### [facility] [address] [place], [place] 3807983 Special Librarian: Lakhwindre Tim MD Creatinine [Mass/Vol] 0.5 mg/dL Normal 0.50-0.90 [facility] Comment on above: Performed By: #### C DP #### [facility] [address] [place] [address] Special Librarian: Lakhwinder Tim MD GFR/1.73 sq M.predicted among non-blacks MDRD (S/P/Bld) [Vol rate/Area] mL/min/{1.73_m2} Normal >60 [facility] Comment on above: Result Comment: These [...] secretion. Performed By: #### C DP #### [facility] [address] [place] [address] Special Librarian: Lakhwinder Tim MD Glucose [Mass/Vol] 83 mg/dL Normal 74-99 [facility] Comment on above: Performed By: #### C DP #### [facility] [address] [place], [place] 5454383 Special Librarian: Lakhwinder Tim MD Potassium [Moles/Vol] 3.3 mmol/L Low 3.7-5.3 [facility] Comment on above: Performed By: #### C DP #### [facility] [address] [place], [place] 5801083 Special Librarian: Lakhwinder Tim MD Protein [Mass/Vol] 5.8 g/dL Low 6.6-8.7 [facility] Comment on above: Performed By: #### C DP #### [facility] [address] [place], [place] 3275783 Special Librarian: Lakhwinder Tim MD Sodium [Moles/Vol] 139 mmol/L Normal 136-145 [facility] Comment on above: Performed By: #### C DP #### [facility] [address] [place], [place] [phone] Special Librarian: Lakhwinder Tim MD Urea nitrogen [Mass/Vol] 12 mg/dL Normal 6-20 [facility] Comment on above: Performed By: #### C DP #### [facility] [address] [place] [address] Special Librarian: Lakhwinder Tim MD Comprehensive Metabolic Pane l w/ Reflex to MGon 04-12-2024 Albumin [Mass/Vol] 3.1 g/dL Low 3.5 - 5.2 g/dL [facility] Albumin/Globulin [Mass ratio] 1.2 {ratio} 1.0 - 2.5 [facility] ALP [Catalytic activity/Vol] 41 U/L 35 - 104 U/L [facility] ALT [Catalytic activity/Vol] 11 U/L 10 - 35 U/L [facility] Anion gap [Moles/Vol] 9 mmol/L 9 - 16 mmol/L [facility] AST [Catalytic activity/Vol] 9 U/L Low 10 - 35 U/L [facility] Bilirubin [Mass/Vol] 0.3 mg/dL 0.00 - 1.20 mg/dL [facility] Calcium [Mass/Vol] 8.2 mg/dL Low 8.6 - 10. 4 mg/dL [facility] Chloride [Moles/Vol] 106 mmol/L 98 - 10 7 mmol/L [facility] CO2 [Moles/Vol] 24 mmol/L 20 - 31 mmol/L [facility] Creatinine [Mass/Vol] 0.5 mg/dL 0.50 - 0.90 mg/dL [facility] Est, Love Van Rate - PINF [facility] Comment on above: These results are [...] [Mass/Vol] 83 mg/dL 74 - 99 mg/dL [facility] Interpretation and review of laboratory results Abnormal [facility] Potassium [Moles/Vol] 3.3 mmol/L Low 3.7 - 5.3 mmol/L [facility] Protein [Mass/Vol] 5.8 g/dL Low 6.6 - 8.7 g/dL [facility] Sodium [Moles/Vol] 139 mmol/L 136 - 145 mmol/L [facility] Urea nitrogen [Mass/Vol] 12 mg/dL 6 - 20 mg/dL [facility] Urea nitrogen/Creatinine [Mass ratio] 24 mg/mg High 9 - 20 [facility] EKG Rhythm Stripon [facility] Magnesiumon 04-12-2024 Magnesium [Mass/Vol] 1.7 mg/dL 1.6 - 2 .6 mg/dL [facility] Magnesium [Mass/Vol] 1.7 mg/dL Normal 1.6-2.6 [facility] Comment on above: Performed By: #### C DP #### [facility] [address] [place] [address] Special Librarian: Lakhwinder Tim MD SURGICAL PATHOLOGY REPORTon 04-12-2024 Surgical Pathology Report Path Number: [id number] -- Diagnosis -- A. APPENDIX, APPENDECTOMY: Unremarkable [...] Microscopic Description Microscopic examination performed. Processing Lab: [place] [id number] Interpretation Performed at [place] [id number] SURGICAL PATHOLOGY CONSULTATION Patient Name: BARBRA CLAROS [facility] Rec: [id number] [employer] [facility] ANATOMIC PATHOLOGY [address] [place] [address]. [place], [place] [address] [facility] CBC auto differentialon 03-20 Basophils (Bld) [#/Vol] 0.00 10*3/uL [facility] Basophils/100 WBC (Bld) 0 % 0 - 2 % [facility] Eosinophils (Bld) [#/Vol] 0.00 10*3/uL [facility] Eosinophils/100 WBC (Bld) 0 % Low 1 - 4 % [facility] Erythrocyte distribution width (RBC) [Ratio] 13.7 % 11.8 - 14.4 % [facility] Hematocrit (Bld) [Volume fraction] 34.4 % Low 36.3 - 47.1 % [facility] Hemoglobin (Bld) [Mass/Vol] 11.1 g/dL Low 11.9 - 15.1 g/dL [facility] Immature granulocytes (Bld) [#/Vol] 0.00 10*3/uL [facility] Immature granulocytes/100 WBC (Bld) 0 % 0 [facility] Interpretation and review of laboratory results Abnormal [facility] Lymphocytes/100 WBC (Bld) 8 % Low 24 - 43 % [facility] Lymphocytes/100 WBC (Bld) 0.75 % Low [facility] MCH (RBC) [Entitic mass] 28.2 pg 25.2 - 33.5 pg [facility] MCHC (RBC) [Mass/Vol] 32.3 g/dL 28.4 - 34.8 g/dL [facility] MCV (RBC) [Entitic vol] 87.3 fL 82.6 - 102.9 fL [facility] Monocytes/100 WBC (Bld) 1 % Low 3 - 12 % [facility] Monocytes/100 WBC (Bld) 0.09 % Low [facility] Morphology [place] (Bld) [Interp] Platelet scan shows Normal Platelets [facility] Neutrophils/100 WBC (Bld) 91 % High 36 - 65 % [facility] Nucleated RBC/100 WBC (Bld) [Ratio] 0.0 % 0.0 per 100 WBC [facility] Platelet mean volume (Bld) [Entitic vol] 10.8 fL 8.1 - 13.5 fL [facility] Platelets (Bld) [#/Vol] 170 10*3/uL [facility] RBC (Bld) [#/Vol] 3.94 10*6/uL Low 3.95 - 5.1 1 m/uL [facility] Segmented neutrophils/100 WBC (Bld) 8.56 % High [facility] WBC other (Bld) [#/Vol] 9.4 [facility] CBC with Diffon 04-11-2024 Abs. Basophil 0.00 k/uL Normal 0.0-0.2 [facility] Comment on above: Performed By: #### C P, LIP, CDP #### [facility] [address] [place], [place] [address] Special Librarian: Lakhwinder Tim MD Abs.Imm.Granulocyte 0.00 k/uL Normal 0.00-0.30 [facility] Comment on above: Performed By: #### C P, LIP, CDP #### [address] [place], [place] [address] Special Librarian: Lakhwinder Tim MD Abs.Neutrophil (Seg) 8.56 k/uL High 1.50-8.10 [facility] Comment on above: Performed By: #### C P, LIP, CDP #### [address] [place], [place] [address] Special Librarian: Lakhwinder Tim MD Basophils/100 WBC (Bld) 0 % Normal 0-2 [facility] Comment on above: Performed By: #### C P, LIP, CDP #### [address] [place], [place] [address] Special Librarian: Lakhwinder Tim MD Eosinophils (Bld) [#/Vol] 0.00 10*3/uL Normal 0.00-0.44 [facility] Comment on above: Performed By: #### C P, LIP, CDP #### [facility] [address] [place], [facility]83 Special Librarian: Lakhwinder Tim MD Eosinophils/100 WBC (Bld) 0 % Low 1-4 [facility] Comment on above: Performed By: #### C P, LIP, CDP #### [facility] [address] [place], [place] 2660683 Special Librarian: Lakhwinder Tim MD Immature granulocytes/100 WBC (Bld) 0 % Normal 0 [facility] Comment on above: Performed By: #### C P, LIP, CDP #### [facility] [address] [place], [place] [address]83 Special Librarian: Lakhwinder Tim MD Lymphocytes (Bld) [#/Vol] 0.75 10*3/uL Low 1.10-3.70 [facility] Comment on above: Performed By: #### C P, LIP, CDP #### [facility] [address] [place], [place] 0737383 Special Librarian: Lakhwinder Tim MD Lymphocytes/100 WBC (Bld) 8 % Low 24-43 [facility] Comment on above: Performed By: #### C P, LIP, CDP #### [facility] [address] [place], [facility]83 Special Librarian: Lakhwinder Tim MD Monocytes (Bld) [#/Vol] 0.09 10*3/uL Low 0.10-1.20 [facility] Comment on above: Performed By: #### C P, LIP, CDP #### [facility] [address] [place], [place] 37[address]83 Special Librarian: Lakhwinder Tim MD Monocytes/100 WBC (Bld) 1 % Low 3-12 [facility] Comment on above: Performed By: #### C P, LIP, CDP #### [facility] [address] [place], [place] 3349083 Special Librarian: Lakhwinder Tim MD Morphology [place] (Bld) [Interp] Platelet scan shows Normal Platelets Normal [facility] Comment on above: Performed By: #### C P, LIP, CDP #### [facility] [address] [place], [facility]83 Special Librarian: Lakhwinder Tim MD Neutrophil (Seg) 91 % High 36-65 [facility] Comment on above: Performed By: #### C P, LIP, CDP #### [address] [place], [place] 8165683 Special Librarian: Lakhwinder Tim MD Erythrocyte distribution width (RBC) [Ratio] 13.7 % Normal 11.8-14.4 [facility] Comment on above: Performed By: #### C P, LIP, CDP #### [address] [place], [place] 6584883 Special Librarian: Lakhwinder Tim MD Hematocrit (Bld) [Volume fraction] 34.4 % Low 36.3-47.1 [facility] Comment on above: Performed By: #### C P, LIP, CDP #### [address] [place], [place] 6771583 Special Librarian: Lakhwinder Tim MD Hemoglobin (Bld) [Mass/Vol] 11.1 g/dL Low 11.9-15.1 [facility] Comment on above: Performed By: #### C P, LIP, CDP #### [address] [place], [place] 6638083 Special Librarian: Lakhwinder Tim MD MCH (RBC) [Entitic mass] 28.2 pg Normal 25.2-33.5 [facility] Comment on above: Performed By: #### C P, LIP, CDP #### [address] [place], [place] 0034883 Special Librarian: Lakhwinder Tim MD MCHC (RBC) [Mass/Vol] 32.3 g/dL Normal 28.4-34.8 [facility] Comment on above: Performed By: #### C P, LIP, CDP #### [address] [place] [address] Special Librarian: Lakhwinder Tim MD MCV (RBC) [Entitic vol] 87.3 fL Normal 82.6-102.9 [facility] Comment on above: Performed By: #### C P, LIP, CDP #### [address] [place], [place] 2895683 Special Librarian: Lakhwinder Tim MD NRBC Automated 0.0 per [address] [facility] Comment on above: Performed By: #### C P, LIP, CDP #### [address] [place], [place] 5897783 Special Librarian: Lakhwinder Tim MD Platelet mean volume (Bld) [Entitic vol] 10.8 fL Normal 8.1-13.5 [facility] Comment on above: Performed By: #### C P, LIP, CDP #### [address] [place], [facility]83 Special Librarian: Lakhwinder Tim MD Platelets (Bld) [#/Vol] 170 10*3/uL Normal 138-453 [facility] Comment on above: Performed By: #### C P, LIP, CDP #### [address] [place], [place] 7748783 Special Librarian: Lakhwinder Tim MD RBC (Bld) [#/Vol] 3.94 10*6/uL Low 3.95-5.11 [facility] Comment on above: Performed By: #### C P, LIP, CDP #### [address] [place], [place] 2378983 Special Librarian: Lakhwinder Tim MD WBC (Bld) [#/Vol] 9.4 10*3/uL Normal 3.5-11.3 [facility] Comment on above: Performed By: #### C P, LIP, CDP #### [address] [place] [address] Special Librarian: Lakhwinder Tim MD Comp Metabolic Pr/rfx MGon 1 0- Albumin [Mass/Vol] 3.6 g/dL Normal 3.5-5.2 [facility] Comment on above: Performed By: #### C P, LIP, CDP #### [facility] [address] [place], [place] 4637583 Special Librarian: Lakhwinder Tim MD Albumin/Glob Ratio 1.2 Normal 1.0-2.5 [facility] Comment on above: Performed By: #### C P, LIP, CDP #### [facility] [address] [place], [place] 0382683 Special Librarian: Lakhwinder Tim MD Alkaline Phos 49 U/L Normal 35-104 [facility] Comment on above: Performed By: #### C P, LIP, CDP #### [facility] [address] [place], [place] 2673483 Special Librarian: Lakhwinder Tim MD ALT [Catalytic activity/Vol] 13 U/L Normal 10-35 [facility] Comment on above: Performed By: #### C P, LIP, CDP #### [facility] [address] [place], [place] 9075483 Special Librarian: Lakhwinder Tim MD Anion gap [Moles/Vol] 9 mmol/L Normal 9-16 [facility] Comment on above: Performed By: #### C P, LIP, CDP #### [facility] [address] [place], [place] 742[address]83 Special Librarian: Lakhwinder Tim MD AST [Catalytic activity/Vol] 13 U/L Normal 10-35 [facility] Comment on above: Performed By: #### C P, LIP, CDP #### [facility] [address] [place] [address] Special Librarian: Lakhwinder Tim MD Bilirubin [Mass/Vol] 0.7 mg/dL Normal 0.00-1.20 [facility] Comment on above: Performed By: #### C P, LIP, CDP #### [facility] [address] [place], [place] 8373483 Special Librarian: Lakhwinder Tim MD BUN/CRE Ratio 18 Normal 9-20 [facility] Comment on above: Performed By: #### C P, LIP, CDP #### [facility] [address] [place], [place] 8587783 Special Librarian: Lakhwinder Tim MD Calcium [Mass/Vol] 8.4 mg/dL Low 8.6-10.4 [facility] Comment on above: Performed By: #### C P, LIP, CDP #### [facility] [address] [place], [place] 4298583 Special Librarian: Lakhwinder Tim MD Chloride [Moles/Vol] 105 mmol/L Normal 98-107 [facility] Comment on above: Performed By: #### C P, LIP, CDP #### [facility] [address] [place], [place] 9958083 Special Librarian: Lakhwinder Tim MD CO2 [Moles/Vol] 23 mmol/L Normal 20-31 [facility] Comment on above: Performed By: #### C P, LIP, CDP #### [facility] [address] [place], [place] 0070083 Special Librarian: Lakhwinder Tim MD Creatinine [Mass/Vol] 0.5 mg/dL Normal 0.50-0.90 [facility] Comment on above: Performed By: #### C P, LIP, CDP #### [facility] [address] [place] [address] Special Librarian: Lakhwinder Tim MD GFR/1.73 sq M.predicted among non-blacks MDRD (S/P/Bld) [Vol rate/Area] mL/min/{1.73_m2} Normal >60 [facility] Comment on above: Result Comment: These [...] By: #### C P, LIP, CDP #### [facility] [address] [place] [address] [place], [facility]83 Special Librarian: Lakhwinder Tim MD Glucose [Mass/Vol] 136 mg/dL High 74-99 [facility] Comment on above: Performed By: #### C P, LIP, CDP #### [address] [place], [facility]83 Special Librarian: Lakhwinder Tim MD Potassium [Moles/Vol] 4.0 mmol/L Normal 3.7-5.3 [facility] Comment on above: Performed By: #### C P, LIP, CDP #### [address] [place] [address] Special Librarian: Lakhwinder Tim MD Protein [Mass/Vol] 6.6 g/dL Normal 6.6-8.7 [facility] Comment on above: Performed By: #### C P, LIP, CDP #### [address] [place], [place] 4856583 Special Librarian: Lakhwinder Tim MD Sodium [Moles/Vol] 137 mmol/L Normal 136-145 [facility] Comment on above: Performed By: #### C P, LIP, CDP #### [address] [place] [address] Special Librarian: Lakhwinder Tim MD Urea nitrogen [Mass/Vol] 9 mg/dL Normal 6-20 [facility] Comment on above: Performed By: #### C P, LIP, CDP #### [address] [place] [address] Special Librarian: Lakhwinder Tim MD Comprehensive Metabolic Pane l w/ Reflex to MGon 04-11-2024 Albumin [Mass/Vol] 3.6 g/dL 3.5 - 5.2 g/dL [facility] Albumin/Globulin [Mass ratio] 1.2 {ratio} 1.0 - 2.5 [facility] ALP [Catalytic activity/Vol] 49 U/L 35 - 104 U/L [facility] ALT [Catalytic activity/Vol] 13 U/L 10 - 35 U/L [facility] Anion gap [Moles/Vol] 9 mmol/L 9 - 16 mmol/L [facility] AST [Catalytic activity/Vol] 13 U/L 10 - 35 U/L [facility] Bilirubin [Mass/Vol] 0.7 mg/dL 0.00 - 1.20 mg/dL [facility] Calcium [Mass/Vol] 8.4 mg/dL Low 8.6 - 10. 4 mg/dL [facility] Chloride [Moles/Vol] 105 mmol/L 98 - 10 7 mmol/L [facility] CO2 [Moles/Vol] 23 mmol/L 20 - 31 mmol/L [facility] Creatinine [Mass/Vol] 0.5 mg/dL 0.50 - 0.90 mg/dL [facility] [employer] Rate - PINF [facility] Comment on above: These results are [...] 136 mg/dL High 74 - 99 mg/dL [facility] Interpretation and review of laboratory results Abnormal [facility] Potassium [Moles/Vol] 4.0 mmol/L 3.7 - 5.3 mmol/L [facility] Protein [Mass/Vol] 6.6 g/dL 6.6 - 8.7 g/dL [employer] Sodium [Moles/Vol] 137 mmol/L 136 - 145 mmol/L [employer] Urea nitrogen [Mass/Vol] 9 mg/dL 6 - 20 mg/dL [employer] Urea nitrogen/Creatinine [Mass ratio] 18 mg/mg 9 - 20 [employer] EKG 12 LeadOrdered By: Haley Alcantar hmad on 04-11-2024 Atrial Rate 99 BPM [employer] Work Phone: P [place] 46 degrees [employer] Work Phone: P-R Interval 148 ms [employer] Work Phone: Q-T Interval 362 ms [employer] Work Phone: QRS Duration 96 ms [employer] Work Phone: QTc Calculation (Bazett) 464 ms [employer] Work Phone: R [place] 33 degrees [employer] Work Phone: T [place] 37 degrees [employer] Work Phone: Ventricular Rate 99 BPM [employer] Work Phone: [employer] Work Phone: EKG 12 Leadon 04-11-2024 Poor [...] Hicks MD ([id number]) on 04/11/2024 8:01:06 AM [facility] RADIOLOGY Haley Hicks MD - 04/11/2024 Poor data quality, interpretation may be adversely affected Normal sinus rhythm Incomplete right bundle branch block Nonspecific T wave abnormality Prolonged QT Abnormal ECG ECG not diagnostic for Acute Coronary Syndrome; consider clinical findings When compared with ECG of 15-AUG-2023 19:40, Poor data quality in current ECG precludes serial comparison Confirmed by Haley Hicks MD ([id number]) on 04/11/2024 8:01:06 AM [facility] EKG Rhythm Stripon [facility] Surgical Pathology Reporton 04-11-2024 Surgical Pathology Report (NOTE) Path Number: [id number] -- Diagnosis -- A. APPENDIX, APPENDECTOMY: Unremarkable [...] Microscopic Description Microscopic examination performed. Processing Lab: [address] [address] Interpretation Performed at [address] [id number] SURGICAL PATHOLOGY CONSULTATION Patient Name: BARBRA CLAROS Med Rec: [id number] [facility] [employer] [facility] ANATOMIC PATHOLOGY [address] [facility]. [place], [place] [address] [facility] TYPE AND SCREENon 04-11-2024 ABO and Rh group Nom (Bld) Blood group O Rh(D) positive [facility] Arm Band Number [id number] [facility] Blood Bank Sample Expiration 04/13/2024,2359 [facility] Blood group antibodies identified Nom Negative [facility] Type + Screenon 04-11-2024 Type + Screen Sample Expiration 04/13/2024,2359 Arm Band Number [id number] ABO/Rh(D) O POSITIVE Antibody Screen NEGATIVE Normal [facility] Comment on above: Performed By: #### C DP #### [facility] [address] [place] [address] Special Librarian: Lakhwinder Tim MD Basic Metabolic Panelon 03-20 Anion gap [Moles/Vol] 10 mmol/L 9 - 16 mmol/L [facility] Calcium [Mass/Vol] 9.0 mg/dL 8.6 - 10. 4 mg/dL [facility] Chloride [Moles/Vol] 103 mmol/L 98 - 10 7 mmol/L [facility] CO2 [Moles/Vol] 26 mmol/L 20 - 31 mmol/L [facility] Creatinine [Mass/Vol] 0.5 mg/dL 0.50 - 0.90 mg/dL [facility] Est, Glom Filt Rate - PINF [facility] Comment on above: These results are [...] [Mass/Vol] 88 mg/dL 74 - 99 mg/dL [facility] Interpretation and review of laboratory results Abnormal [facility] Potassium [Moles/Vol] 3.7 mmol/L 3.7 - 5.3 mmol/L [facility] Sodium [Moles/Vol] 139 mmol/L 136 - 145 mmol/L [facility] Urea nitrogen [Mass/Vol] 11 mg/dL 6 - 20 mg/dL [facility] Urea nitrogen/Creatinine [Mass ratio] 22 mg/mg High 9 - 20 [facility] Basic Metabolic Profon 04-10 Anion gap [Moles/Vol] 10 mmol/L Normal 9-16 [facility] Comment on above: Performed By: #### C P, LIP, CDP #### [facility] [address] [place], [place] [id number] Special Librarian: Lakhwinder Tim MD BUN/CRE Ratio 22 High 9-20 [facility] Comment on above: Performed By: #### C P, LIP, CDP #### [facility] [address] [place], [place] [id number] Special Librarian: Lakhwinder Tim MD Calcium [Mass/Vol] 9.0 mg/dL Normal 8.6-10.4 [facility] Comment on above: Performed By: #### C P, LIP, CDP #### [facility] [address] [place], [place] [id number] Special Librarian: Lakhwinder Tim MD Chloride [Moles/Vol] 103 mmol/L Normal 98-107 [facility] Comment on above: Performed By: #### C P, LIP, CDP #### [facility] [address] [place], [place] [id number] Special Librarian: Lakhwinder Tim MD CO2 [Moles/Vol] 26 mmol/L Normal 20-31 [facility] Comment on above: Performed By: #### C P, LIP, CDP #### [facility] [address] [place], [place] [id number] Special Librarian: Lakhwinder Tim MD Creatinine [Mass/Vol] 0.5 mg/dL Normal 0.50-0.90 [facility] Comment on above: Performed By: #### C P, LIP, CDP #### [facility] [address] [place] [address] Special Librarian: Lakhwinder Tim MD GFR/1.73 sq M.predicted among non-blacks MDRD (S/P/Bld) [Vol rate/Area] mL/min/{1.73_m2} Normal >60 [facility] Comment on above: Result Comment: These [...] By: #### C P LIP, CDP #### [facility] [address] [place] [address] [place] [place], [place] [id number] Special Librarian: Lakhwinder Tim MD Glucose [Mass/Vol] 88 mg/dL Normal 74-99 [facility] Comment on above: Performed By: #### C P LIP, CDP #### [address] [place], [place] [id number] Special Librarian: Lakhwinder Tim MD Potassium [Moles/Vol] 3.7 mmol/L Normal 3.7-5.3 [facility] Comment on above: Performed By: #### C PTOM, CDP #### [address] [place], [place] [id number] Special Librarian: Lakhwinder Tim MD Sodium [Moles/Vol] 139 mmol/L Normal 136-145 [facility] Comment on above: Performed By: #### C P LIP, CDP #### [facility] [address] [place], [place] 056[address]83 Special Librarian: Lakhwinder Tim MD Urea nitrogen [Mass/Vol] 11 mg/dL Normal 6-20 [facility] Comment on above: Performed By: #### C P LIP, CDP #### [facility] [address] [place], [place] [id number] Special Librarian: Lakhwinder Tim MD CBC with Auto Differentialon 04-10-2024 Basophils (Bld) [#/Vol] [facility] Basophils/100 WBC (Bld) 0 % 0 - 2 % [facility] Eosinophils (Bld) [#/Vol] [facility] Eosinophils/100 WBC (Bld) 0 % Low 1 - 4 % [facility] Erythrocyte distribution width (RBC) [Ratio] 13.8 % 11.8 - 14.4 % [facility] Hematocrit (Bld) [Volume fraction] 36.3 % 36.3 - 47.1 % [facility] Hemoglobin (Bld) [Mass/Vol] 11.7 g/dL Low 11.9 - 15.1 g/dL [facility] Immature granulocytes (Bld) [#/Vol] [facility] Immature granulocytes/100 WBC (Bld) 0 % 0 [facility] Interpretation and review of laboratory results Abnormal [facility] Lymphocytes/100 WBC (Bld) 17 % Low 24 - 43 % [facility] Lymphocytes/100 WBC (Bld) 1.52 % [facility] MCH (RBC) [Entitic mass] 28.1 pg 25.2 - 33.5 pg [facility] MCHC (RBC) [Mass/Vol] 32.2 g/dL 28.4 - 34.8 g/dL [facility] MCV (RBC) [Entitic vol] 87.3 fL 82.6 - 102.9 fL [facility] Monocytes/100 WBC (Bld) 7 % 3 - 12 % [facility] Monocytes/100 WBC (Bld) 0.66 % [facility] Neutrophils/100 WBC (Bld) 76 % High 36 - 65 % [facility] Nucleated RBC/100 WBC (Bld) [Ratio] 0.0 % 0.0 per 100 WBC [facility] Platelet mean volume (Bld) [Entitic vol] 10.5 fL 8.1 - 13.5 fL [facility] Platelets (Bld) [#/Vol] 192 10*3/uL [facility] RBC (Bld) [#/Vol] 4.16 10*6/uL 3.95 - 5.1 1 m/uL [facility] Segmented neutrophils/100 WBC (Bld) 6.88 % [facility] WBC other (Bld) [#/Vol] 9.1 [facility] CBC with Diffon 04-10-2024 Abs. Basophil <0.03 Normal 0.00-0.20 [facility] Comment on above: Performed By: #### C P, LIP, CDP #### [facility] [address] [place] [address] Dr[address] [place], [place] [address] Special Librarian: Lakhwinder Tim MD Abs. Eosinophil <0.03 Normal 0.00-0.44 [facility] Comment on above: Performed By: #### C P, LIP, CDP #### [address] [place], [facility]83 Special Librarian: Lakhwinder Tim MD Abs.Imm.Granulocyte <0.03 Normal 0.00-0.30 [facility] Comment on above: Performed By: #### C P, LIP, CDP #### [address] [place], [facility]83 Special Librarian: Lakhwinder Tim MD Abs.Neutrophil (Seg) 6.88 k/uL Normal 1.50-8.10 [facility] Comment on above: Performed By: #### C P, LIP, CDP #### [address] [place], [place] [id number] Special Librarian: Lakhwinder Tim MD Basophils/100 WBC (Bld) 0 % Normal 0-2 [facility] Comment on above: Performed By: #### C P, LIP, CDP #### [facility] [address] [place] [address] Dr. [place], [facility]83 Special Librarian: Lakhwinder Tim MD Eosinophils/100 WBC (Bld) 0 % Low 1-4 [facility] Comment on above: Performed By: #### C P, LIP, CDP #### [facility] [address] [place] [address] Dr. [place], [facility]83 Special Librarian: Lakhwinder Tim MD Erythrocyte distribution width (RBC) [Ratio] 13.8 % Normal 11.8-14.4 [facility] Comment on above: Performed By: #### C P, LIP, CDP #### [facility] [address] [place] [address] Special Librarian: Lakhwinder Tim MD Hematocrit (Bld) [Volume fraction] 36.3 % Normal 36.3-47.1 [facility] Comment on above: Performed By: #### C P, LIP, CDP #### [facility] [address] [place] [address] Special Librarian: Lakhwinder Tim MD Hemoglobin (Bld) [Mass/Vol] 11.7 g/dL Low 11.9-15.1 [facility] Comment on above: Performed By: #### C P, LIP, CDP #### [address] [place], [facility]83 Special Librarian: Lakhwinder Tim MD Immature granulocytes/100 WBC (Bld) 0 % Normal 0 [facility] Comment on above: Performed By: #### C P, LIP, CDP #### [address] [place], [place] [id number] Special Librarian: Lakhwinder Tim MD Lymphocytes (Bld) [#/Vol] 1.52 10*3/uL Normal 1.10-3.70 [facility] Comment on above: Performed By: #### C P, LIP, CDP #### [facility] [address] [place], [place] 0365383 Special Librarian: Lakhwinder Tim MD Lymphocytes/100 WBC (Bld) 17 % Low 24-43 [facility] Comment on above: Performed By: #### C P, LIP, CDP #### [facility] [address] [place] [address] Special Librarian: Lakhwinder Tim MD MCH (RBC) [Entitic mass] 28.1 pg Normal 25.2-33.5 [facility] Comment on above: Performed By: #### C P, LIP, CDP #### [facility] [address] [place] [address] Special Librarian: Lakhwinder Tim MD MCHC (RBC) [Mass/Vol] 32.2 g/dL Normal 28.4-34.8 [facility] Comment on above: Performed By: #### C P, LIP, CDP #### [facility] [address] [place] [address] Special Librarian: Lakhwinder Tim MD MCV (RBC) [Entitic vol] 87.3 fL Normal 82.6-102.9 [facility] Comment on above: Performed By: #### C P, LIP, CDP #### [address] [place], [facility]83 Special Librarian: Lakhwinder Tim MD Monocytes (Bld) [#/Vol] 0.66 10*3/uL Normal 0.10-1.20 [facility] Comment on above: Performed By: #### C P, LIP, CDP #### [address] [place] [address] Special Librarian: Lakhwinder Tim MD Monocytes/100 WBC (Bld) 7 % Normal 3-12 [facility] Comment on above: Performed By: #### C P, LIP, CDP #### [facility] [address] [place] [address] Special Librarian: Lakhwinder Tim MD Neutrophil (Seg) 76 % High 36-65 [facility] Comment on above: Performed By: #### C P, LIP, CDP #### [facility] [address] [place], [place] [id number] Special Librarian: Lakhwinder Tim MD NRBC Automated 0.0 per [address] [facility] Comment on above: Performed By: #### C P, LIP, CDP #### [facility] [address] [place], [facility]83 Special Librarian: Lakhwinder Tim MD Platelet mean volume (Bld) [Entitic vol] 10.5 fL Normal 8.1-13.5 [facility] Comment on above: Performed By: #### C P, LIP, CDP #### [facility] [address] [place], [facility]83 Special Librarian: Lakhwinder Tim MD Platelets (Bld) [#/Vol] 192 10*3/uL Normal 138-453 [facility] Comment on above: Performed By: #### C P, LIP, CDP #### [address] [place], [facility]83 Special Librarian: Lakhwinder Tim MD RBC (Bld) [#/Vol] 4.16 10*6/uL Normal 3.95-5.11 [facility] Comment on above: Performed By: #### C P, LIP, CDP #### [address] [place], [facility]83 Special Librarian: Lakhwinder Tim MD WBC (Bld) [#/Vol] 9.1 10*3/uL Normal 3.5-11.3 [facility] Comment on above: Performed By: #### C P, LIP, CDP #### [address] [place], [facility]83 Special Librarian: Lakhwinder Tim MD CT ABDOMEN PELVIS W [...] 04/10/24 Edited Result - FINAL Normal [facility] CT Abdomen and Pelvis W cont [...] ELA Laird at 8:04 p.m. on 04/10/2024. [facility] CONSOLIDATED EXAMINATION: CT OF THE [...] acute bony or soft tissue abnormality identified. [facility] Esther Coates MD - 04/10/2024 EXAMINATION: [...] ELA Laird at 8:04 p.m. on 04/10/2024. [facility] Radiology Study observation (narrative) [facility] CT Abdomen and Pelvis W cont rast IVOrdered By: Esther Coates on 04-10-2024 [facility] Work Phone: Lactic Acidon 04-10-2024 Lactate (BldV) [Moles/Vol] 0.6 mmol/L 0.5 - 2.2 mmol/L [facility] Lactate [Moles/Vol] 0.6 mmol/L Normal 0.5-2.2 [facility] Comment on above: Performed By: #### C PTOM, CDP #### [facility] [address] [place] [address] Special Librarian: Lakhwinder Tim MD Microscopic Urinalysison Epithelial cells LM.HPF (Urine sed) [#/Area] 0 TO 2 [facility] Interpretation and review of laboratory results Abnormal [facility] Mucus Ql (Urine sed) TRACE Abnormal None [facility] RBC LM.HPF (Urine sed) [#/Area] 0 TO 2 [facility] WBC LM.HPF (Urine sed) [#/Area] 0 TO 2 [facility] UA w/Reflex Cultureon 2023 Bilirubin, SemiQt,Ur Negative Normal NEG [facility] Comment on above: Performed By: #### C PTOM, CDP #### [facility] [address] [place] [address] Special Librarian: Lakhwinder Tim MD Blood, Urine TRACE Abnormal NEG [facility] Comment on above: Performed By: #### C PTOM, CDP #### [facility] [address] [place] [address] Special Librarian: Lakhwinder Tim MD Clarity (U) Clear Normal CLEAR [facility] Comment on above: Performed By: #### C PTOM, CDP #### [facility] [address] [place] [address] Special Librarian: Lakhwinder Tim MD Color (U) Yellow Normal YEL [facility] Comment on above: Performed By: #### C P, LIP, CDP #### [facility] [address] [place] [address] Special Librarian: Lakhwinder Tim MD Glucose Ql (U) Negative Normal NEG [facility] Comment on above: Performed By: #### C P, LIP, CDP #### [facility] [address] [place] [address] Special Librarian: Lakhwinder Tim MD Ketones Ql (U) Negative Normal NEG [facility] Comment on above: Performed By: #### C P, LIP, CDP #### [facility] [address] [place] [address] [place], [place] 2921183 Special Librarian: Lakhwinder Tim MD Leukocyte esterase Test strip Ql (U) Negative Normal NEG [facility] Comment on above: Performed By: #### C P, LIP, CDP #### [facility] [address] [place] [address] [place] [address] Special Librarian: Lakhwinder Tim MD Nitrite,Ur Negative Normal [facility] Comment on above: Performed By: #### C P, LIP, CDP #### [facility] [address] [place] [address] [place] [address] Special Librarian: Lakhwinder Tim MD PH,Ur 6.0 Normal 5.0-9.0 [facility] Comment on above: Performed By: #### C P, LIP, CDP #### [facility] [address] [place] [address] Special Librarian: Lakhwinder Tim MD Protein Ql (U) Negative Normal NEG [facility] Comment on above: Performed By: #### C P, LIP, CDP #### [facility] [address] [place] [address] Special Librarian: Lakhwinder Tim MD Spec. [place],Ur 1.020 Normal 1.010-1.020 [facility] Comment on above: Performed By: #### C P, LIP, CDP #### [facility] [address] [place] [address] Special Librarian: Lakhwinder Tim MD Urobilinogen,Ur Normal Normal 0.0-1.0 [facility] Comment on above: Performed By: #### C P, LIP, CDP #### [facility] [address] [place] [address] Special Librarian: Lakhwinder Tim MD US NON OB TRANSVAGINAL [...] Steiner MD 04/10/[address] [facility] US Pelvis transvaginalon Normal Doppler flow to the ovaries. The right ovary is not as enlarged when compared with the ultrasound from yesterday. [facility] RIS CONSOLIDATED EXAMINATION: PELVIC ULTRASOUND 04/10/2024 [...] venous Doppler flow. Free Fluid: None seen. [facility] Arlette Gann MD - 04/10/2024 EXAMINATION: PELVIC ULTRASOUND 04/10/2024 [...] when compared with the ultrasound from yesterday. [facility] Radiology Study observation (narrative) [facility] US Pelvis transvaginalOrdere d By: Arlette Steiner on 04-10-2024 [facility] Work Phone: Urinalysis with Reflex to Cu ltureon 04-10-2024 Bilirubin Ql (U) Negative NEGATIVE [facility] Clarity (U) Clear Clear [facility] Color (U) Yellow Yellow [facility] Glucose Test strip (U) [Mass/Vol] Negative NEGATIVE mg/dL [facility] Hemoglobin Auto test strip Ql (U) TRACE Abnormal NEGATIVE [facility] Interpretation and review of laboratory results Abnormal [facility] Ketones (U) [Mass/Vol] Negative NEGATIVE mg/dL [facility] Leukocyte esterase Test strip Ql (U) Negative NEGATIVE [facility] Nitrite Ql (U) Negative NEGATIVE [facility] pH (U) 6.0 [pH] 5.0 - 9.0 [facility] Protein (U) [Mass/Vol] Negative NEGATIVE mg/dL [facility] Specific gravity (U) [Rel density] 1.020 1.010 - 1.020 [facility] Urobilinogen Qn (U) Normal 0.0 - 1. 0 EU/dL [facility] Urinalysis,Microon 4 Epithelial cells LM Ql (Urine sed) 0 TO 2 Normal 0-25 [facility] Comment on above: Performed By: #### C P, LIP, CDP #### [facility] [address] [place], [place] [id number] Special Librarian: Lakhwinder Tim MD Mucus Strands TRACE Abnormal NONE [facility] Comment on above: Performed By: #### C P, LIP, CDP #### [facility] [address] [place], [place] 488[address]83 Special Librarian: Lakhwinder Tim MD Urine RBC's 0 TO 2 Normal 0-2 [facility] Comment on above: Performed By: #### C P, LIP, CDP #### [facility] [address] [place], [place] 118[address]83 Special Librarian: Lakhwinder Tim MD Urine WBC's 0 TO 2 Normal 0-5 [facility] Comment on above: Performed By: #### C P, LIP, CDP #### [facility] [address] [place], [place] [phone] Special Librarian: Lakhwinder Tim MD Basic Metabolic Panelon 03-20 Anion gap [Moles/Vol] 8 mmol/L Low 9 - 16 mmol/L [facility] Calcium [Mass/Vol] 9.0 mg/dL 8.6 - 10. 4 mg/dL [facility] Chloride [Moles/Vol] 105 mmol/L 98 - 10 7 mmol/L [facility] CO2 [Moles/Vol] 27 mmol/L 20 - 31 mmol/L [facility] Creatinine [Mass/Vol] 0.5 mg/dL 0.50 - 0.90 mg/dL [facility] Est, Glom Filt Rate - PINF [facility] Comment on above: These results are [...] 73 mg/dL Low 74 - 99 mg/dL [facility] Interpretation and review of laboratory results Abnormal [facility] Potassium [Moles/Vol] 4.1 mmol/L 3.7 - 5.3 mmol/L [facility] Sodium [Moles/Vol] 140 mmol/L 136 - 145 mmol/L [facility] Urea nitrogen [Mass/Vol] 8 mg/dL 6 - 20 mg/dL [facility] Urea nitrogen/Creatinine [Mass ratio] 16 mg/mg 9 - 20 [facility] Basic Metabolic Profon 04-09 Anion gap [Moles/Vol] 8 mmol/L Low 9-16 [facility] Comment on above: Performed By: #### C TOM Mckeon, CDP #### [facility] [address] [place] [address] [place] [address] Special Librarian: Lakhwinder Tim MD BUN/CRE Ratio 16 Normal 9-20 [facility] Comment on above: Performed By: #### TOM Donahue, CDP #### [facility] [address] [place] [address] [place] [address] Special Librarian: Lakhwinder Tim MD Calcium [Mass/Vol] 9.0 mg/dL Normal 8.6-10.4 [facility] Comment on above: Performed By: #### TOM Donahue, CDP #### [facility] [address] [place] [address] [place] [address] Special Librarian: Lakhwinder Tim MD Chloride [Moles/Vol] 105 mmol/L Normal 98-107 [facility] Comment on above: Performed By: #### C P, LIP, CDP #### [facility] [address] [place] [address] Special Librarian: Lakhwinder Tim MD CO2 [Moles/Vol] 27 mmol/L Normal 20-31 [facility] Comment on above: Performed By: #### C P, LIP, CDP #### [facility] [address] [place] [address] Special Librarian: Lakhwinder Tim MD Creatinine [Mass/Vol] 0.5 mg/dL Normal 0.50-0.90 [facility] Comment on above: Performed By: #### C P LIP, CDP #### [facility] [address] [place] [address] Special Librarian: Lakhwinder Tim MD GFR/1.73 sq M.predicted among non-blacks MDRD (S/P/Bld) [Vol rate/Area] mL/min/{1.73_m2} Normal >60 [facility] Comment on above: Result Comment: These [...] By: #### C P, LIP, CDP #### [facility] [address] [place] [address] Special Librarian: Lakhwinder Tim MD Glucose [Mass/Vol] 73 mg/dL Low 74-99 [facility] Comment on above: Performed By: #### C P, LIP, CDP #### [facility] [address] [place] [address] Special Librarian: Lakhwinder Tim MD Potassium [Moles/Vol] 4.1 mmol/L Normal 3.7-5.3 [facility] Comment on above: Performed By: #### C P, LIP, CDP #### [facility] [address] [place] [address] Special Librarian: Lakhwinder Tim MD Sodium [Moles/Vol] 140 mmol/L Normal 136-145 [facility] Comment on above: Performed By: #### C P, LIP, CDP #### [facility] [address] [place], [place] [id number] Special Librarian: Lakhwinder Tim MD Urea nitrogen [Mass/Vol] 8 mg/dL Normal 6-20 [facility] Comment on above: Performed By: #### C P LIP, CDP #### [facility] [address] [place] [address] Special Librarian: Lakhwinder Tim MD CBC with Auto Differentialon 04-09-2024 Basophils (Bld) [#/Vol] 0.03 10*3/uL [facility] Basophils/100 WBC (Bld) 1 % 0 - 2 % [facility] Eosinophils (Bld) [#/Vol] 0.07 10*3/uL [facility] Eosinophils/100 WBC (Bld) 1 % 1 - 4 % [facility] Erythrocyte distribution width (RBC) [Ratio] 13.5 % 11.8 - 14.4 % [facility] Hematocrit (Bld) [Volume fraction] 36.7 % 36.3 - 47.1 % [facility] Hemoglobin (Bld) [Mass/Vol] 11.7 g/dL Low 11.9 - 15.1 g/dL [facility] Immature granulocytes (Bld) [#/Vol] [facility] Immature granulocytes/100 WBC (Bld) 0 % 0 [facility] Interpretation and review of laboratory results Abnormal [facility] Lymphocytes/100 WBC (Bld) 38 % 24 - 43 % [facility] Lymphocytes/100 WBC (Bld) 2.24 % [facility] MCH (RBC) [Entitic mass] 28.1 pg 25.2 - 33.5 pg [facility] MCHC (RBC) [Mass/Vol] 31.9 g/dL 28.4 - 34.8 g/dL [facility] MCV (RBC) [Entitic vol] 88.2 fL 82.6 - 102.9 fL [facility] Monocytes/100 WBC (Bld) 7 % 3 - 12 % [facility] Monocytes/100 WBC (Bld) 0.40 % [facility] Neutrophils/100 WBC (Bld) 53 % 36 - 65 % [facility] Nucleated RBC/100 WBC (Bld) [Ratio] 0.0 % 0.0 per 100 WBC [facility] Platelet mean volume (Bld) [Entitic vol] 10.1 fL 8.1 - 13.5 fL [facility] Platelets (Bld) [#/Vol] 188 10*3/uL [facility] RBC (Bld) [#/Vol] 4.16 10*6/uL 3.95 - 5.1 1 m/uL [facility] Segmented neutrophils/100 WBC (Bld) 3.21 % [facility] WBC other (Bld) [#/Vol] 6.0 [facility] CBC with Diffon 04-09-2024 Abs. Basophil 0.03 k/uL Normal 0.00-0.20 [facility] Comment on above: Performed By: #### C P, LIP, CDP #### [facility] [address] [place] [address] Special Librarian: Lakhwinder Tim MD Abs.Imm.Granulocyte <0.03 Normal 0.00-0.30 [facility] Comment on above: Performed By: #### C P, LIP, CDP #### [facility] [address] [place] [address] Special Librarian: Lakhwinder Tim MD Abs.Neutrophil (Seg) 3.21 k/uL Normal 1.50-8.10 [facility] Comment on above: Performed By: #### C P, LIP, CDP #### [facility] [address] [place], [place] [id number] Special Librarian: Lakhwinder Tim MD Basophils/100 WBC (Bld) 1 % Normal 0-2 [facility] Comment on above: Performed By: #### C P, LIP, CDP #### [address] [place], [facility]83 Special Librarian: Lakhwinder Tim MD Eosinophils (Bld) [#/Vol] 0.07 10*3/uL Normal 0.00-0.44 [facility] Comment on above: Performed By: #### C P, LIP, CDP #### [address] [place] [id number] Special Librarian: Lakhwinder Tim MD Eosinophils/100 WBC (Bld) 1 % Normal 1-4 [facility] Comment on above: Performed By: #### C P, LIP, CDP #### [address] [place], [facility] Special Librarian: Lakhwinder Tim MD Erythrocyte distribution width (RBC) [Ratio] 13.5 % Normal 11.8-14.4 [facility] Comment on above: Performed By: #### C P, LIP, CDP #### [address] [place] [id number] Special Librarian: Lakhwinder Tim MD Hematocrit (Bld) [Volume fraction] 36.7 % Normal 36.3-47.1 [facility] Comment on above: Performed By: #### C P, LIP, CDP #### [address] [place] [id number] Special Librarian: Lakhwinder Tim MD Hemoglobin (Bld) [Mass/Vol] 11.7 g/dL Low 11.9-15.1 [facility] Comment on above: Performed By: #### C P, LIP, CDP #### [address] [place], [facility] Special Librarian: Lakhwinder Tim MD Immature granulocytes/100 WBC (Bld) 0 % Normal 0 [facility] Comment on above: Performed By: #### C P, LIP, CDP #### [facility] [address] [place], [facility]83 Special Librarian: Lakhwinder Tim MD Lymphocytes (Bld) [#/Vol] 2.24 10*3/uL Normal 1.10-3.70 [facility] Comment on above: Performed By: #### C P, LIP, CDP #### [address] [place], [facility]83 Special Librarian: Lakhwinder Tim MD Lymphocytes/100 WBC (Bld) 38 % Normal 24-43 [facility] Comment on above: Performed By: #### C P, LIP, CDP #### [address] [place], [facility]83 Special Librarian: Lakhwinder Tim MD MCH (RBC) [Entitic mass] 28.1 pg Normal 25.2-33.5 [facility] Comment on above: Performed By: #### C P, LIP, CDP #### [address] [place], [facility]83 Special Librarian: Lakhwinder Tim MD MCHC (RBC) [Mass/Vol] 31.9 g/dL Normal 28.4-34.8 [facility] Comment on above: Performed By: #### C P, LIP, CDP #### [address] [place], [facility]83 Special Librarian: Lakhwinder Tim MD MCV (RBC) [Entitic vol] 88.2 fL Normal 82.6-102.9 [facility] Comment on above: Performed By: #### C P, LIP, CDP #### [address] [place], [facility]83 Special Librarian: Lakhwinder Tim MD Monocytes (Bld) [#/Vol] 0.40 10*3/uL Normal 0.10-1.20 [facility] Comment on above: Performed By: #### C P, LIP, CDP #### [facility] [address] [place], [place] [id number] Special Librarian: Lakhwinder Tim MD Monocytes/100 WBC (Bld) 7 % Normal 3-12 [facility] Comment on above: Performed By: #### C P, LIP, CDP #### [facility] [address] [place] [address] Special Librarian: Lakhwinder Tim MD Neutrophil (Seg) 53 % Normal 36-65 [facility] Comment on above: Performed By: #### C P, LIP, CDP #### [facility] [address] [place], [place] [id number] Special Librarian: Lakhwinder Tim MD NRBC Automated 0.0 per [address] [facility] Comment on above: Performed By: #### C P, LIP, CDP #### [facility] [address] [place], [place] 4000483 Special Librarian: Lakhwinder Tim MD Platelet mean volume (Bld) [Entitic vol] 10.1 fL Normal 8.1-13.5 [facility] Comment on above: Performed By: #### C P, LIP, CDP #### [facility] [address] [place] [address] Special Librarian: Lakhwinder Tim MD Platelets (Bld) [#/Vol] 188 10*3/uL Normal 138-453 [facility] Comment on above: Performed By: #### C P, LIP, CDP #### [facility] [address] [place] [address] Special Librarian: Lakhwinder Tim MD RBC (Bld) [#/Vol] 4.16 10*6/uL Normal 3.95-5.11 [facility] Comment on above: Performed By: #### C P, LIP, CDP #### [facility] [address] [place] [address] Special Librarian: Lakhwinder Tim MD WBC (Bld) [#/Vol] 6.0 10*3/uL Normal 3.5-11.3 [facility] Comment on above: Performed By: #### C PTOM, CDP #### [facility] [address] [place] [address] Special Librarian: Lakhwinder Tim MD Lactic Acidon 04-09-2024 Lactate (BldV) [Moles/Vol] 0.9 mmol/L 0.5 - 2.2 mmol/L [facility] Lactate [Moles/Vol] 0.9 mmol/L Normal 0.5-2.2 [facility] Comment on above: Performed By: #### C DP #### [facility] [address] [place] [address] Special Librarian: Lakhwinder Tim MD Microscopic Urinalysison Bacteria LM Ql (Urine sed) 1+ Abnormal None [facility] Epithelial cells LM.HPF (Urine sed) [#/Area] 2 TO 5 [facility] Interpretation and review of laboratory results Abnormal [facility] Mucus Ql (Urine sed) 1+ Abnormal None [facility] RBC LM.HPF (Urine sed) [#/Area] 0 TO 2 [facility] WBC LM.HPF (Urine sed) [#/Area] 0 TO 2 [facility] UA w/Reflex Cultureon 2023 Bilirubin, SemiQt,Ur Negative Normal NEG [facility] Comment on above: Performed By: #### U MICAO, UAX #### [facility] [address] [place] [address] Special Librarian: Lakhwinder Tim MD Blood, Urine Negative Normal NEG [facility] Comment on above: Performed By: #### U MICAO, UAX #### [facility] [address] [place], [place] [phone] Special Librarian: Lakhwinder Tim MD Clarity (U) Clear Normal CLEAR [facility] Comment on above: Performed By: #### U MICAO, UAX #### [facility] [address] [place], [place] 6326183 Special Librarian: Lakhwinder Tim MD Color (U) Yellow Normal YEL [facility] Comment on above: Performed By: #### U MICAO, UAX #### [facility] [address] [place], [place] [phone] Special Librarian: Lakhwinder Tim MD Glucose Ql (U) Negative Normal NEG [facility] Comment on above: Performed By: #### U MICAO, UAX #### [facility] [address] [place], [place] [phone] Special Librarian: Lakhwinder Tim MD Ketones Ql (U) Negative Normal NEG [facility] Comment on above: Performed By: #### U MICAO, UAX #### [address] [place], [place] 7957983 Special Librarian: Lakhwinder Tim MD Leukocyte esterase Test strip Ql (U) Negative Normal NEG [facility] Comment on above: Performed By: #### U MICAO, UAX #### [facility] [address] [place], [place] [phone] Special Librarian: Lakhwinder Tim MD Nitrite,Ur Negative Normal NEG [facility] Comment on above: Performed By: #### U MICAO, UAX #### [facility] [address] [place], [place] [phone] Special Librarian: Lakhwinder Tim MD PH,Ur 8.0 Normal 5.0-9.0 [facility] Comment on above: Performed By: #### U MICAO, UAX #### [facility] [address] [place], [place] [phone] Special Librarian: Lakhwinder Tim MD Protein Ql (U) Negative Normal NEG [facility] Comment on above: Performed By: #### U MICAO, UAX #### [facility] [address] [place], [place] [phone] Special Librarian: Lakhwinder Tim MD Spec. [place],Ur 1.020 Normal 1.010-1.020 [facility] Comment on above: Performed By: #### U MICAO, UAX #### [facility] [address] [place], [place] [id number] Special Librarian: Lakhwinder Tim MD Urobilinogen,Ur Normal Normal 0.0-1.0 [facility] Comment on above: Performed By: #### U MICAO, UAX #### [facility] [address] [place] [address] Special Librarian: Lakhwinder Tim MD US NON OB TRANSVAGINAL [...] Villegas MD 04/09/[address] [facility] US Pelvis transvaginalon 1. No sonographic evidence of ovarian torsion. 2. The previously described complex right ovarian cystic lesion now appears to represent two adjacent simple cysts versus less likely a cystic lesion with a thickened internal septation. A separate 2.7 cm mildly heterogeneous area could represent hemorrhagic cyst. Consider 6-8 week pelvic ultrasound to assess change. 3. Prior hysterectomy. [facility] EXAMINATION: TRANSVAGINAL PELVIC [...] Free Fluid: No evidence of free fluid. [facility] CONSOL[facility] Lexus Villeags MD - 04/09/2024 EXAMINATION: TRANSVAGINAL PELVIC ULTRASOUND [...] ultrasound to assess change. 3. Prior hysterectomy. [facility] Radiology Study observation (narrative) [facility] US Pelvis transvaginalOrdere d By: Lexus Villegas on 04-09-2024 [facility] Work Phone: Urinalysis with Reflex to Cu ltureon 04-09-2024 Bilirubin Ql (U) Negative NEGATIVE [facility] Clarity (U) Clear Clear [facility] Color (U) Yellow Yellow [facility] Glucose Test strip (U) [Mass/Vol] Negative NEGATIVE mg/dL [facility] Hemoglobin Auto test strip Ql (U) Negative NEGATIVE [facility] Ketones (U) [Mass/Vol] Negative NEGATIVE mg/dL [facility] Leukocyte esterase Test strip Ql (U) Negative NEGATIVE [facility] Nitrite Ql (U) Negative NEGATIVE [facility] pH (U) 8.0 [pH] 5.0 - 9.0 [facility] Protein (U) [Mass/Vol] Negative NEGATIVE mg/dL [facility] Specific gravity (U) [Rel density] 1.020 1.010 - 1.020 [facility] Urobilinogen Qn (U) Normal 0.0 - 1. 0 EU/dL [facility] Urinalysis,Microon 4 Bacteria 1+ Abnormal NONE [facility] Comment on above: Performed By: #### U OSMINO, UAX #### [facility] [address] [place] [address] Special Librarian: Lakhwinder Tim MD Epithelial cells LM Ql (Urine sed) 2 TO 5 Normal 0-25 [facility] Comment on above: Performed By: #### U OSMINO, UAX #### [facility] [address] [place], [place] [phone] Special Librarian: Lakhwinder Tim MD Mucus Strands 1+ Abnormal [facility] Comment on above: Performed By: #### U MICAO, UAX #### [facility] [address] [place], [place] 0750383 Special Librarian: Lakhwinder Tim MD Urine RBC's 0 TO 2 Normal 0-2 [facility] Comment on above: Performed By: #### U MICAO, UAX #### [facility] [address] [place], [place] 6563783 Special Librarian: Lakhwinder Tim MD Urine WBC's 0 TO 2 Normal 0-5 [facility] Comment on above: Performed By: #### U MICAO, UAX #### [facility] [address] [place], [place] 0444783 Special Librarian: Lakhwinder Tim MD CBC with Auto Differentialon 04-02-2024 Basophils (Bld) [#/Vol] 0.04 10*3/uL [facility] Basophils/100 WBC (Bld) 1 % 0 - 2 % [facility] Eosinophils (Bld) [#/Vol] 0.07 10*3/uL [facility] Eosinophils/100 WBC (Bld) 2 % 1 - 4 % [facility] Erythrocyte distribution width (RBC) [Ratio] 13.7 % 11.8 - 14.4 % [facility] Hematocrit (Bld) [Volume fraction] 40.3 % 36.3 - 47.1 % [facility] Hemoglobin (Bld) [Mass/Vol] 12.9 g/dL 11.9 - 15.1 g/dL [facility] Immature granulocytes (Bld) [#/Vol] [facility] Immature granulocytes/100 WBC (Bld) 0 % 0 [facility] Lymphocytes/100 WBC (Bld) 38 % 24 - 43 % [facility] Lymphocytes/100 WBC (Bld) 1.81 % [facility] MCH (RBC) [Entitic mass] 27.9 pg 25.2 - 33.5 pg [facility] MCHC (RBC) [Mass/Vol] 32.0 g/dL 28.4 - 34.8 g/dL [facility] MCV (RBC) [Entitic vol] 87.0 fL 82.6 - 102.9 fL [facility] Monocytes/100 WBC (Bld) 6 % 3 - 12 % [facility] Monocytes/100 WBC (Bld) 0.27 % [facility] Neutrophils/100 WBC (Bld) 53 % 36 - 65 % [facility] Nucleated RBC/100 WBC (Bld) [Ratio] 0.0 % 0.0 per 100 WBC [facility] Platelet mean volume (Bld) [Entitic vol] 9.9 fL 8.1 - 13.5 fL [facility] Platelets (Bld) [#/Vol] 259 10*3/uL [facility] RBC (Bld) [#/Vol] 4.63 10*6/uL 3.95 - 5.1 1 m/uL [facility] Segmented neutrophils/100 WBC (Bld) 2.58 % [facility] WBC other (Bld) [#/Vol] 4.8 [facility] CBC with Diffon 04-02-2024 Abs. Basophil 0.04 k/uL Normal 0.00-0.20 [facility] Comment on above: Performed By: #### C DP #### [facility] [address] [place] [address] [place] [address] Special Librarian: Lakhwinder Tim MD Abs.Imm.Granulocyte <0.03 Normal 0.00-0.30 [facility] Comment on above: Performed By: #### C DP #### [address] [address] Special Librarian: Lakhwinder Tim MD Abs.Neutrophil (Seg) 2.58 k/uL Normal 1.50-8.10 [facility] Comment on above: Performed By: #### C DP #### [address] [place] [address] Special Librarian: Lakhwinder Tim MD Basophils/100 WBC (Bld) 1 % Normal 0-2 [facility] Comment on above: Performed By: #### C DP #### [address] [place] [address] Special Librarian: Lakhwinder Tim MD Eosinophils (Bld) [#/Vol] 0.07 10*3/uL Normal 0.00-0.44 [facility] Comment on above: Performed By: #### C DP #### [facility] [address] [place] [phone] Special Librarian: Lakhwinder Tim MD Eosinophils/100 WBC (Bld) 2 % Normal 1-4 [facility] Comment on above: Performed By: #### C DP #### [facility] [address] [place] [address] [place] [address]83 Special Librarian: Lakhwinder Tim MD Erythrocyte distribution width (RBC) [Ratio] 13.7 % Normal 11.8-14.4 [facility] Comment on above: Performed By: #### C DP #### [facility] [address] [place], [facility]83 Special Librarian: Lakhwinder Tim MD Hematocrit (Bld) [Volume fraction] 40.3 % Normal 36.3-47.1 [facility] Comment on above: Performed By: #### C DP #### [facility] [address] [place], [facility]83 Special Librarian: Lakhwinder Tim MD Hemoglobin (Bld) [Mass/Vol] 12.9 g/dL Normal 11.9-15.1 [facility] Comment on above: Performed By: #### C DP #### [facility] [address] [place], [facility]83 Special Librarian: Lakhwinder Tim MD Immature granulocytes/100 WBC (Bld) 0 % Normal 0 [facility] Comment on above: Performed By: #### C DP #### [facility] [address] [place], [place] [address] Special Librarian: Lakhwinder Tim MD Lymphocytes (Bld) [#/Vol] 1.81 10*3/uL Normal 1.10-3.70 [facility] Comment on above: Performed By: #### C DP #### [facility] [address] [place], [facility]83 Special Librarian: Lakhwinder Tim MD Lymphocytes/100 WBC (Bld) 38 % Normal 24-43 [facility] Comment on above: Performed By: #### C DP #### [facility] [address] [place], [facility]83 Special Librarian: Lakhwinder Tim MD MCH (RBC) [Entitic mass] 27.9 pg Normal 25.2-33.5 [facility] Comment on above: Performed By: #### C DP #### [facility] [address] [place], [place] [id number] Special Librarian: Lakhwinder Tim MD MCHC (RBC) [Mass/Vol] 32.0 g/dL Normal 28.4-34.8 [facility] Comment on above: Performed By: #### C DP #### [facility] [address] [place] [facility]83 Special Librarian: Lakhwinder Tim MD MCV (RBC) [Entitic vol] 87.0 fL Normal 82.6-102.9 [facility] Comment on above: Performed By: #### C DP #### [address] [place], [facility]83 Special Librarian: Lakhwinder Tim MD Monocytes (Bld) [#/Vol] 0.27 10*3/uL Normal 0.10-1.20 [facility] Comment on above: Performed By: #### C DP #### [facility] [address] [place] [address] Dr. [place], [facility]83 Special Librarian: Lakhwinder Tim MD Monocytes/100 WBC (Bld) 6 % Normal 3-12 [facility] Comment on above: Performed By: #### C DP #### [facility] [address] [place] [address] Dr. [place], [facility]83 Special Librarian: Lakhwinder Tim MD Neutrophil (Seg) 53 % Normal 36-65 [facility] Comment on above: Performed By: #### C DP #### [facility] [address] [place], [facility]83 Special Librarian: Lakhwinder Tim MD NRBC Automated 0.0 per [address] [facility] Comment on above: Performed By: #### C DP #### [facility] [address] [place], [facility]83 Special Librarian: Lakhwinder Tim MD Platelet mean volume (Bld) [Entitic vol] 9.9 fL Normal 8.1-13.5 [facility] Comment on above: Performed By: #### C DP #### [facility] [address] [place] [address] Special Librarian: Lakhwinder Tim MD Platelets (Bld) [#/Vol] 259 10*3/uL Normal 138-453 [facility] Comment on above: Performed By: #### C DP #### [facility] [address] [place] [address] Special Librarian: Lakhwinder Tim MD RBC (Bld) [#/Vol] 4.63 10*6/uL Normal 3.95-5.11 [facility] Comment on above: Performed By: #### C DP #### [address] [place] [address] Special Librarian: Lakhwinder Tim MD WBC (Bld) [#/Vol] 4.8 10*3/uL Normal 3.5-11.3 [facility] Comment on above: Performed By: #### C DP #### [address] [place] [address] Special Librarian: Lakhwinder Tim MD CT ABDOMEN PELVIS W [...] COMPARISON: None HISTORY: ORDERING SYSTEM PROVIDED HISTORY: [facility] abdominal pain TECHNOLOGIST PROVIDED HISTORY: [facility] abdominal pain Decision Support Exception - [...] Henry MD 04/02/[address] [facility] Comp Metabolic Profon 2023 Albumin [Mass/Vol] 4.7 g/dL Normal 3.5-5.2 [facility] Comment on above: Performed By: #### U MICAO, UAX #### [facility] [address] [place] [address] Special Librarian: Lakhwinder Tim MD Albumin/Glob Ratio 1.6 Normal 1.0-2.5 [facility] Comment on above: Performed By: #### U MICAO, UAX #### [address] [place] [id number] Special Librarian: Lakhwinder Tim MD Alkaline Phos 60 U/L Normal 35-104 [facility] Comment on above: Performed By: #### U MICAO, UAX #### [facility] [address] [place] [address] Special Librarian: Lakhwinder Tim MD ALT [Catalytic activity/Vol] 9 U/L Low 10-35 [facility] Comment on above: Performed By: #### U MICAO, UAX #### [facility] [address] [place] [address] [place] [address] Special Librarian: Lakhwinder Tim MD Anion gap [Moles/Vol] 9 mmol/L Normal 9-16 [facility] Comment on above: Performed By: #### U MICAO, UAX #### [facility] [address] [place], [place] 7344883 Special Librarian: Lakhwinder Tim MD AST [Catalytic activity/Vol] 16 U/L Normal 10-35 [facility] Comment on above: Performed By: #### U MICAO, UAX #### [facility] [address] [place], [place] 5999383 Special Librarian: Lakhwinder Tim MD Bilirubin [Mass/Vol] 0.3 mg/dL Normal 0.00-1.20 [facility] Comment on above: Performed By: #### U MICAO, UAX #### [facility] [address] [place], [place] [phone] Special Librarian: Lakhwinder Tim MD BUN/CRE Ratio 12 Normal 9-20 [facility] Comment on above: Performed By: #### U MICAO, UAX #### [facility] [address] [place], [place] [phone] Special Librarian: Lakhwinder Tim MD Calcium [Mass/Vol] 9.4 mg/dL Normal 8.6-10.4 [facility] Comment on above: Performed By: #### U MICAO, UAX #### [facility] [address] [place], [place] 24[address]883 Special Librarian: Lakhwinder Tim MD Chloride [Moles/Vol] 104 mmol/L Normal 98-107 [facility] Comment on above: Performed By: #### U MICAO, UAX #### [facility] [address] [place], [place] 1280683 Special Librarian: Lakhwinder Tim MD CO2 [Moles/Vol] 26 mmol/L Normal 20-31 [facility] Comment on above: Performed By: #### U MICAO, UAX #### [facility] [address] [place] [address] Special Librarian: Lakhwinder Tim MD Creatinine [Mass/Vol] 0.5 mg/dL Normal 0.50-0.90 [facility] Comment on above: Performed By: #### Josesito COLLINS UAX #### [facility] [address] [place] [address] Special Librarian: Lakhwinder Tim MD GFR/1.73 sq M.predicted among non-blacks MDRD (S/P/Bld) [Vol rate/Area] mL/min/{1.73_m2} Normal >60 [facility] Comment on above: Result Comment: These [...] Performed By: #### Josesito COLLINS UAX #### [facility] [address] [place] [address] Special Librarian: Lakhwinder Tim MD Glucose [Mass/Vol] 88 mg/dL Normal 74-99 [facility] Comment on above: Performed By: #### Josesito COLLINS UAX #### [address] [place] [address] Special Librarian: Lakhwinder Tim MD Potassium [Moles/Vol] 3.7 mmol/L Normal 3.7-5.3 [facility] Comment on above: Performed By: #### U KARINA, UAX #### [facility] [address] [place] [address] Special Librarian: Lakhwinder Tmi MD Protein [Mass/Vol] 7.8 g/dL Normal 6.6-8.7 [facility] Comment on above: Performed By: #### U KARINA, UAX #### [facility] [address] [place] [address] Special Librarian: Lakhwinder Tim MD Sodium [Moles/Vol] 139 mmol/L Normal 136-145 [facility] Comment on above: Performed By: #### Josesito COLLINS UAX #### [facility] [address] [place] [address] Special Librarian: Lakhwinder Tim MD Urea nitrogen [Mass/Vol] 6 mg/dL Normal 6-20 [facility] Comment on above: Performed By: #### Josesito COLLINS UAX #### [facility] [address] [place] [address] Special Librarian: Lakhwinder Tim MD Comprehensive Metabolic Pane [facility] 04-02-2024 Albumin [Mass/Vol] 4.7 g/dL 3.5 - 5.2 g/dL [facility] Albumin/Globulin [Mass ratio] 1.6 {ratio} 1.0 - 2.5 [facility] ALP [Catalytic activity/Vol] 60 U/L 35 - 104 U/L [facility] ALT [Catalytic activity/Vol] 9 U/L Low 10 - 35 U/L [facility] Anion gap [Moles/Vol] 9 mmol/L 9 - 16 mmol/L [facility] AST [Catalytic activity/Vol] 16 U/L 10 - 35 U/L [facility] Bilirubin [Mass/Vol] 0.3 mg/dL 0.00 - 1.20 mg/dL [facility] Calcium [Mass/Vol] 9.4 mg/dL 8.6 - 10. 4 mg/dL [facility] Chloride [Moles/Vol] 104 mmol/L 98 - 10 7 mmol/L [facility] CO2 [Moles/Vol] 26 mmol/L 20 - 31 mmol/L [facility] Creatinine [Mass/Vol] 0.5 mg/dL 0.50 - 0.90 mg/dL [facility] Est, Glom Filt Rate - PINF [facility] Comment on above: These results are [...] [Mass/Vol] 88 mg/dL 74 - 99 mg/dL [facility] Interpretation and review of laboratory results Abnormal [facility] Potassium [Moles/Vol] 3.7 mmol/L 3.7 - 5.3 mmol/L [facility] Protein [Mass/Vol] 7.8 g/dL 6.6 - 8.7 g/dL [facility] Sodium [Moles/Vol] 139 mmol/L 136 - 145 mmol/L [facility] Urea nitrogen [Mass/Vol] 6 mg/dL 6 - 20 mg/dL [facility] Urea nitrogen/Creatinine [Mass ratio] 12 mg/mg 9 - 20 [facility] Lactic Acidon 04-02-2024 Lactate [Moles/Vol] 1.4 mmol/L Normal 0.5-2.2 [facility] Comment on above: Performed By: #### U KARINA UAX #### [facility] [address] [place] [address] Special Librarian: Lakhwinder Tim MD Lactate (BldV) [Moles/Vol] 1.4 mmol/L 0.5 - 2.2 mmol/L [facility] Microscopic Urinalysison Epithelial cells LM.HPF (Urine sed) [#/Area] 0 TO 2 [facility] RBC LM.HPF (Urine sed) [#/Area] 0 TO 2 [facility] WBC LM.HPF (Urine sed) [#/Area] 0 TO 2 [facility] UA w/Reflex Cultureon 2023 Bilirubin, SemiQt,Ur Negative Normal NEG [facility] Comment on above: Performed By: #### U KARINA UAX #### [facility] [address] [place], [place] [id number] Special Librarian: Lakhwinder Tim MD Blood, Urine Negative Normal NEG [facility] Comment on above: Performed By: #### U MICAO, UAX #### [facility] [address] [place] [address] Special Librarian: Lakhwinder Tim MD Clarity (U) Clear Normal CLEAR [facility] Comment on above: Performed By: #### U MICAO, UAX #### [facility] [address] [place], [place] [id number] Special Librarian: Lakhwinder Tim MD Color (U) Yellow Normal YEL [facility] Comment on above: Performed By: #### U MICAO, UAX #### [facility] [address] [place], [place] [id number] Special Librarian: Lakhwinder Tim MD Glucose Ql (U) Negative Normal NEG [facility] Comment on above: Performed By: #### U MICAO, UAX #### [facility] [address] [place] [address] [place] [place], [place] [id number] Special Librarian: Lakhwinder Tim MD Ketones Ql (U) Negative Normal NEG [facility] Comment on above: Performed By: #### U MICAO, UAX #### [facility] [address] [place] [address] [place] [place], [place] [id number] Special Librarian: Lakhwinder Tim MD Leukocyte esterase Test strip Ql (U) Negative Normal NEG [facility] Comment on above: Performed By: #### U MICAO, UAX #### [facility] [address] [place], [place] [id number] Special Librarian: Lakhwinder Tim MD Nitrite,Ur Negative Normal NEG [facility] Comment on above: Performed By: #### U MICAO, UAX #### [facility] [address] [place], [place] [id number] Special Librarian: Lakhwinder Tim MD PH,Ur 8.0 Normal 5.0-9.0 [facility] Comment on above: Performed By: #### U OSMINO, UAX #### [facility] [address] [place] [address] Special Librarian: Lakhwinder Tim MD Protein Ql (U) Negative Normal NEG [facility] Comment on above: Performed By: #### U MICAO, UAX #### [facility] [address] [place], [place] [phone] Special Librarian: Lakhwinder Tim MD Spec. [place],Ur 1.020 Normal 1.010-1.020 [facility] Comment on above: Performed By: #### U OSMINO, UAX #### [facility] [address] [place], [place] [phone] Special Librarian: Lakhwinder Tim MD Urobilinogen,Ur Normal Normal 0.0-1.0 [facility] Comment on above: Performed By: #### U OSMINO, UAX #### [address] [place] [address] Special Librarian: Lakhwinder Tim MD US NON OB TRANSVAGINAL [...] Bertrand MD 04/02/[address] [facility] US Pelvis transvaginalon 1. Patient status [...] of the lesion and patient's premenopausal status. [facility] RIS CONSOLIDATED EXAMINATION: TRANSVAGINAL PELVIC ULTRASOUND [...] Free Fluid: No evidence of free fluid. [facility] RIS CONSOLIDATED Yasir Bertrand MD - 04/02/2024 EXAMINATION: [...] of the lesion and patient's premenopausal status. [facility] Radiology Study observation (narrative) [facility] US Pelvis transvaginalOrdere d By: Yasirneno Bertrand on 04-02-2024 [facility] Work Phone: Urinalysis with Reflex to Cu ltureon 04-02-2024 Bilirubin Ql (U) Negative NEGATIVE [place] [facility] Clarity (U) Clear Clear [facility] Color (U) Yellow Yellow [facility] Glucose Test strip (U) [Mass/Vol] Negative NEGATIVE mg/dL [facility] Hemoglobin Auto test strip Ql (U) Negative NEGATIVE [facility] Ketones (U) [Mass/Vol] Negative NEGATIVE mg/dL [facility] Leukocyte esterase Test strip Ql (U) Negative NEGATIVE [facility] Nitrite Ql (U) Negative NEGATIVE [place] [facility] pH (U) 8.0 [pH] 5.0 - 9.0 [facility] Protein (U) [Mass/Vol] Negative NEGATIVE mg/dL [facility] Specific gravity (U) [Rel density] 1.020 1.010 - 1.020 [facility] Urobilinogen Qn (U) Normal 0.0 - 1. 0 EU/dL [facility] Urinalysis,Microon 4 Epithelial cells LM Ql (Urine sed) 0 TO 2 Normal 0-25 [facility] Comment on above: Performed By: #### U MICAO, UAX #### [facility] [address] [place] [address] Special Librarian: Lakhwinder Tim MD Urine RBC's 0 TO 2 Normal 0-2 [facility] Comment on above: Performed By: #### U MICAO, UAX #### [facility] [address] [place] [address] Special Librarian: Lakhwinder Tim MD Urine WBC's 0 TO 2 Normal 0-5 [facility] Comment on above: Performed By: #### U MICAO, UAX #### [facility] [address] [place] [address] Special Librarian: Lakhwinder Tim MD CBC with Diffon 03-17-2024 Basophils (Bld) [#/Vol] [facility] Basophils/100 WBC (Bld) 0 % 0 - 2 % [facility] Eosinophils (Bld) [#/Vol] 0.08 10*3/uL [facility] Eosinophils/100 WBC (Bld) 2 % 1 - 4 % [facility] Erythrocyte distribution width (RBC) [Ratio] 13.6 % 11.8 - 14.4 % [facility] Hematocrit (Bld) [Volume fraction] 35.9 % Low 36.3 - 47.1 % [facility] Hemoglobin (Bld) [Mass/Vol] 12.0 g/dL 11.9 - 15.1 g/dL [facility] Immature granulocytes (Bld) [#/Vol] [facility] Immature granulocytes/100 WBC (Bld) 0 % 0 [facility] Interpretation and review of laboratory results Abnormal [facility] Lymphocytes/100 WBC (Bld) 37 % 24 - 43 % [facility] Lymphocytes/100 WBC (Bld) 1.59 % [facility] MCH (RBC) [Entitic mass] 28.5 pg 25.2 - 33.[address] [facility] MCHC (RBC) [Mass/Vol] 33.4 g/dL 28.4 - 34.8 g/dL [facility] MCV (RBC) [Entitic vol] 85.3 fL 82.6 - 102.[address] [facility] Monocytes/100 WBC (Bld) 8 % 3 - 12 % [facility] Monocytes/100 WBC (Bld) 0.32 % [facility] Neutrophils/100 WBC (Bld) 53 % 36 - 65 % [facility] Nucleated RBC/100 WBC (Bld) [Ratio] 0.0 % 0.0 per 100 WBC [facility] Platelet mean volume (Bld) [Entitic vol] 10.6 fL 8.1 - 13.[address] [facility] Platelets (Bld) [#/Vol] 202 10*3/uL [facility] RBC (Bld) [#/Vol] 4.21 10*6/uL 3.95 - 5.1 1 m/uL [facility] Segmented neutrophils/100 WBC (Bld) 2.26 % [facility] WBC other (Bld) [#/Vol] 4.3 [facility] Abs. Basophil <0.03 Normal 0.00-0.20 [facility] Comment on above: Performed By: #### C P, LIP, CDP #### [facility] [address] [place] [address] [place] [place], [place] [phone] Special Librarian: Lakhwinder Tim MD Abs.Imm.Granulocyte <0.03 Normal 0.00-0.30 [facility] Comment on above: Performed By: #### C P, LIP, CDP #### [address] [place] [phone] Special Librarian: Lakhwinder Tim MD Abs.Neutrophil (Seg) 2.26 k/uL Normal 1.50-8.10 [facility] Comment on above: Performed By: #### C P, LIP, CDP #### [address] [place], [place] 8343783 Special Librarian: Lakhwinder Tim MD Basophils/100 WBC (Bld) 0 % Normal 0-2 [facility] Comment on above: Performed By: #### C P, LIP, CDP #### [address] [place] [phone] Special Librarian: Lakhwinder Tim MD Eosinophils (Bld) [#/Vol] 0.08 10*3/uL Normal 0.00-0.44 [facility] Comment on above: Performed By: #### C P, LIP, CDP #### [address] [place], [place] 2287983 Special Librarian: Lakhwinder Tim MD Eosinophils/100 WBC (Bld) 2 % Normal 1-4 [facility] Comment on above: Performed By: #### C P, LIP, CDP #### [facility] [address] [place] [address] Special Librarian: Lakhwinder Tim MD Erythrocyte distribution width (RBC) [Ratio] 13.6 % Normal 11.8-14.4 [facility] Comment on above: Performed By: #### C P, LIP, CDP #### [facility] [address] [place], [place] [address] Special Librarian: Lakhwinder Tim MD Hematocrit (Bld) [Volume fraction] 35.9 % Low 36.3-47.1 [facility] Comment on above: Performed By: #### C P, LIP, CDP #### [address] [address] Special Librarian: Lakhwinder Tim MD Hemoglobin (Bld) [Mass/Vol] 12.0 g/dL Normal 11.9-15.1 [facility] Comment on above: Performed By: #### C P, LIP, CDP #### [address] [place], [place] [address] Special Librarian: Lakhwinder Tim MD Immature granulocytes/100 WBC (Bld) 0 % Normal 0 [facility] Comment on above: Performed By: #### C P, LIP, CDP #### [address] [place], [place] [address] Special Librarian: Lakhwinder Tim MD Lymphocytes (Bld) [#/Vol] 1.59 10*3/uL Normal 1.10-3.70 [facility] Comment on above: Performed By: #### C P, LIP, CDP #### [facility] [address] [place], [facility]83 Special Librarian: Lakhwinder Tim MD Lymphocytes/100 WBC (Bld) 37 % Normal 24-43 [facility] Comment on above: Performed By: #### C P, LIP, CDP #### [address] [place] [address] Special Librarian: Lakhwinder Tim MD MCH (RBC) [Entitic mass] 28.5 pg Normal 25.2-33.5 [facility] Comment on above: Performed By: #### C P, LIP, CDP #### [address] [place], [place] [address] Special Librarian: Lakhwinder Tim MD MCHC (RBC) [Mass/Vol] 33.4 g/dL Normal 28.4-34.8 [facility] Comment on above: Performed By: #### C P, LIP, CDP #### [address] [place], [place] [address] Special Librarian: Lakhwinder Tim MD MCV (RBC) [Entitic vol] 85.3 fL Normal 82.6-102.9 [facility] Comment on above: Performed By: #### C P, LIP, CDP #### [address] [place], [facility] Special Librarian: Lakhwinder Tim MD Monocytes (Bld) [#/Vol] 0.32 10*3/uL Normal 0.10-1.20 [facility] Comment on above: Performed By: #### C P, LIP, CDP #### [address] [place], [facility] Special Librarian: Lakhwinder Tim MD Monocytes/100 WBC (Bld) 8 % Normal 3-12 [facility] Comment on above: Performed By: #### C P, LIP, CDP #### [address] [place], [place] 5080083 Special Librarian: Lakhwinder Tim MD Neutrophil (Seg) 53 % Normal 36-65 [facility] Comment on above: Performed By: #### C P, LIP, CDP #### [address] [place], [facility] Special Librarian: Lakhwinder Tim MD NRBC Automated 0.0 per [address] [facility] Comment on above: Performed By: #### C P, LIP, CDP #### [facility] [address] [place], [facility]83 Special Librarian: Lakhwinder Tim MD Platelet mean volume (Bld) [Entitic vol] 10.6 fL Normal 8.1-13.5 [facility] Comment on above: Performed By: #### C P, LIP, CDP #### [address] [address] Special Librarian: Lakhwinder Tim MD Platelets (Bld) [#/Vol] 202 10*3/uL Normal 138-453 [facility] Comment on above: Performed By: #### C P, LIP, CDP #### [address] [place], [facility]83 Special Librarian: Lakhwinder Tim MD RBC (Bld) [#/Vol] 4.21 10*6/uL Normal 3.95-5.11 [facility] Comment on above: Performed By: #### C P, LIP, CDP #### [address] [address] Special Librarian: Lakhwinder Tim MD WBC (Bld) [#/Vol] 4.3 10*3/uL Normal 3.5-11.3 [facility] Comment on above: Performed By: #### C P, LIP, CDP #### [address] [place] [id number] Special Librarian: Lakhwinder Tim [facility] Albumin [Mass/Vol] 4.4 g/dL 3.5 - 5.2 g/dL [facility] Albumin/Globulin [Mass ratio] 1.4 {ratio} 1.0 - 2.5 [facility] ALP [Catalytic activity/Vol] 66 U/L 35 - 104 U/L [facility] ALT [Catalytic activity/Vol] 9 U/L Low 10 - 35 U/L [facility] Anion gap [Moles/Vol] 9 mmol/L 9 - 16 mmol/L [facility] AST [Catalytic activity/Vol] 18 U/L 10 - 35 U/L [facility] Bilirubin [Mass/Vol] mg/dL 0.00 - 1.20 mg/dL [facility] Calcium [Mass/Vol] 9.2 mg/dL 8.6 - 10. 4 mg/dL [facility] Chloride [Moles/Vol] 104 mmol/L 98 - 10 7 mmol/L [facility] CO2 [Moles/Vol] 24 mmol/L 20 - 31 mmol/L [facility] Creatinine [Mass/Vol] 0.6 mg/dL 0.50 - 0.90 mg/dL [facility] Est, Glojanessa Carnest Rate - [facility] Comment on above: These results are not [...] 86 mg/dL 74 - 99 mg/dL [facility] Interpretation and review of laboratory results Abnormal [facility] Potassium [Moles/Vol] 3.8 mmol/L 3.7 - 5.3 mmol/L [facility] Protein [Mass/Vol] 7.6 g/dL 6.6 - 8.7 g/dL [facility] Sodium [Moles/Vol] 137 mmol/L 136 - 145 mmol/L [facility] Urea nitrogen [Mass/Vol] 9 mg/dL 6 - 20 mg/dL [facility] Urea nitrogen/Creatinine [Mass ratio] 15 mg/mg 9 - [address] [facility] [address] ABDOMEN PELVIS W IV [...] COMPARISON: 02/07/2024 HISTORY: ORDERING SYSTEM PROVIDED HISTORY: [facility] pain TECHNOLOGIST PROVIDED HISTORY: [facility] pain Decision Support Exception - unselect if [...] Kumar MD 03/17/[address] [facility] CT Abdomen and Pelvis W cont rast Alexsander 03-17-2024 1. No direct evidenc e for acute infective or inflammatory process. 2. A 4.8 cm right adnexal cyst was previously 2.4 cm. Size and features would support benign functional cyst. Pelvic ultrasound may be considered in light of change in size, patient sentence and fat stranding. [facility] RIS CONSOLIDATED EXAMINATION: CT OF THE [...] size, patient sentence and fat stranding. [facility] Radiology Study observation (narrative) [facility] CT Abdomen and Pelvis W cont rast IVOrdered By: Wily Kumar on 03-17-2024 [facility] Work Phone: Comp Metabolic Profon 2023 Albumin [Mass/Vol] 4.4 g/dL Normal 3.5-5.2 [facility] Comment on above: Performed By: #### C P, LIP, CDP #### [facility] [address] [place] [address] Special Librarian: Lakhwinder Tim MD Albumin/Glob Ratio 1.4 Normal 1.0-2.5 [facility] Comment on above: Performed By: #### C P, LIP, CDP #### [facility] [address] [place] [address] Special Librarian: Lakhwinder Tim MD Alkaline Phos 66 U/L Normal 35-104 [facility] Comment on above: Performed By: #### C P, LIP, CDP #### [facility] [address] [place] [address] Special Librarian: Lakhwinder Tim MD ALT [Catalytic activity/Vol] 9 U/L Low 10-35 [facility] Comment on above: Performed By: #### C P, LIP, CDP #### [facility] [address] [place], [place] [id number] Special Librarian: Lakhwinder Tim MD Anion gap [Moles/Vol] 9 mmol/L Normal 9-16 [facility] Comment on above: Performed By: #### C P, LIP, CDP #### [facility] [address] [place], [place] 7592683 Special Librarian: Lakhwinder Tim MD AST [Catalytic activity/Vol] 18 U/L Normal 10-35 [facility] Comment on above: Performed By: #### C P, LIP, CDP #### [address] [place], [place] [id number] Special Librarian: Lakhwinder Tim MD Bilirubin [Mass/Vol] mg/dL Normal 0.00-1.20 [facility] Comment on above: Performed By: #### C P, LIP, CDP #### [address] [place], [place] [phone] Special Librarian: Lakhwinder Tim MD BUN/CRE Ratio 15 Normal 9-20 [facility] Comment on above: Performed By: #### C P, LIP, CDP #### [address] [place], [place] 0768283 Special Librarian: Lakhwinder Tim MD Calcium [Mass/Vol] 9.2 mg/dL Normal 8.6-10.4 [facility] Comment on above: Performed By: #### C P, LIP, CDP #### [facility] [address] [place] [address] [place] [place], [place] [phone] Special Librarian: Lakhwinder Tim MD Chloride [Moles/Vol] 104 mmol/L Normal 98-107 [facility] Comment on above: Performed By: #### C P, LIP, CDP #### [facility] [address] [place] [address] [place]. [place], [place] 5101483 Special Librarian: Lakhwinder Tim MD CO2 [Moles/Vol] 24 mmol/L Normal 20-31 [facility] Comment on above: Performed By: #### C P, LIP, CDP #### [facility] [address] [place] [address] Special Librarian: Lakhwinder Tim MD Creatinine [Mass/Vol] 0.6 mg/dL Normal 0.50-0.90 [facility] Comment on above: Performed By: #### C P, LIP, CDP #### [facility] [address] [place] [address] Special Librarian: Lakhwinder Tim MD GFR/1.73 sq M.predicted among non-blacks MDRD (S/P/Bld) [Vol rate/Area] mL/min/{1.73_m2} Normal >60 [facility] Comment on above: Result Comment: These [...] By: #### C P, LIP, CDP #### [facility] [address] [place] [address] Special Librarian: Lakhwinder Tim MD Glucose [Mass/Vol] 86 mg/dL Normal 74-99 [facility] Comment on above: Performed By: #### C P, LIP, CDP #### [facility] [address] [place] [address] Special Librarian: Lakhwinder Tim MD Potassium [Moles/Vol] 3.8 mmol/L Normal 3.7-5.3 [facility] Comment on above: Performed By: #### C P, LIP, CDP #### [facility] [address] [place] [address] Special Librarian: Lakhwinder Tim MD Protein [Mass/Vol] 7.6 g/dL Normal 6.6-8.7 [facility] Comment on above: Performed By: #### C P, LIP, CDP #### [facility] [address] [place] [address] Special Librarian: Lakhwinder Tim MD Sodium [Moles/Vol] 137 mmol/L Normal 136-145 [facility] Comment on above: Performed By: #### C P, LIP, CDP #### [address] [place] [address] Special Librarian: Lakhwinder Tim MD Urea nitrogen [Mass/Vol] 9 mg/dL Normal 6-20 [facility] Comment on above: Performed By: #### C P LIP, CDP #### [address] [place] [address] Special Librarian: Lakhwinder Tim MD Lactic Acidon 03-17-2024 Lactate (BldV) [Moles/Vol] 0.9 mmol/L 0.5 - 2.2 mmol/L [facility] Lactate [Moles/Vol] 0.9 mmol/L Normal 0.5-2.2 [facility] Comment on above: Performed By: #### C P LIP, CDP #### [address] [place] [address] Special Librarian: Lakhwinder Tim MD Lipaseon 03-17-2024 Lipase [Catalytic activity/Vol] 17 U/L 13 - 60 U/L [facility] Lipase [Catalytic activity/Vol] 17 U/L Normal 13-60 [facility] Comment on above: Performed By: #### C P, LIP, CDP #### [address] [place] [address] Special Librarian: Lakhwinder Tim MD Microscopic Urinalysison Epithelial cells LM.HPF (Urine sed) [#/Area] 0 TO 2 [facility] RBC LM.HPF (Urine sed) [#/Area] 0 TO 2 [facility] WBC LM.HPF (Urine sed) [#/Area] None [facility] No Panel Informationon 03-17 [facility] UA w/Reflex Cultureon 2023 Bilirubin, SemiQt,Ur Negative Normal NEG [facility] Comment on above: Performed By: #### C DP #### [facility] [address] [place] [address] [place] [address] Special Librarian: Lakhwinder Tim MD Blood, Urine TRACE Abnormal NEG [facility] Comment on above: Performed By: #### C DP #### [address] [place] [address] Special Librarian: Lakhwinder Tim MD Clarity (U) Clear Normal CLEAR [facility] Comment on above: Performed By: #### C DP #### [address] [place], [facility]83 Special Librarian: Lakhwinder Tim MD Color (U) Yellow Normal YEL [facility] Comment on above: Performed By: #### C DP #### [address] [place] [address] Special Librarian: Lakhwinder Tim MD Glucose Ql (U) Negative Normal NEG [facility] in [facility] Comment on above: Performed By: #### C DP #### [facility] [address] [place] [address] Dr[place], [facility] Special Librarian: Lakhwinder Tim MD Ketones Ql (U) Negative Normal NEG [facility] Comment on above: Performed By: #### C DP #### [facility] [address] [place] [address] [place] [address] Special Librarian: Lakhwinder Tim MD Leukocyte esterase Test strip Ql (U) Negative Normal NEG [facility] Comment on above: Performed By: #### C DP #### [facility] [address] [place], [place] [id number] Special Librarian: Lakhwinder Tim MD Nitrite,Ur Negative Normal NEG [facility] Comment on above: Performed By: #### C DP #### [facility] [address] [place], [place] [id number] Special Librarian: Lakhwinder Tim MD PH,Ur 6.5 Normal 5.0-9.0 [facility] Comment on above: Performed By: #### C DP #### [facility] [address] [place], [place] [phone] Special Librarian: Lakhwinder Tim MD Protein Ql (U) Negative Normal NEG [facility] Comment on above: Performed By: #### C DP #### [facility] [address] [place], [place] 9606083 Special Librarian: Lakhwinder Tim MD Spec. [place],Ur 1.015 Normal 1.010-1.020 [facility] Comment on above: Performed By: #### C DP #### [facility] [address] [place], [place] 9886483 Special Librarian: Lakhwinder Tim MD Urobilinogen,Ur Normal Normal 0.0-1.0 [facility] Comment on above: Performed By: #### C DP #### [facility] [address] [place], [place] [phone] Special Librarian: Lakhwinder Tim MD US NON OB TRANSVAGINAL [...] Tatum MD 03/17/[address] [facility] Urinalysis with Reflex to Cu ltureon 03-17-2024 Bilirubin Ql (U) Negative [facility]IVE [facility] Glucose Test strip (U) [Mass/Vol] Negative NEGATIVE mg/dL [facility] Hemoglobin Auto test strip Ql (U) TRACE Abnormal NEGATIVE [facility] Interpretation and review of laboratory results Abnormal [facility] Ketones (U) [Mass/Vol] Negative NEGATIVE mg/dL [facility] Nitrite Ql (U) Negative NEGATIVE [facility] pH (U) 6.5 [pH] 5.0 - 9.0 [facility] Protein (U) [Mass/Vol] Negative NEGATIVE mg/dL [facility] Specific gravity (U) [Rel density] 1.015 1.010 - 1.020 [facility] Urobilinogen Qn (U) Normal 0.0 - 1. 0 EU/dL [facility] Urinalysis,Microon 4 Epithelial cells LM Ql (Urine sed) 0 TO 2 Normal 0-25 [facility] Comment on above: Performed By: #### C DP #### [facility] [address] [place] [address] Special Librarian: Lakhwinder Tim MD Urine RBC's 0 TO 2 Normal 0-2 [facility] Comment on above: Performed By: #### C DP #### [facility] [address] [place] [address] Special Librarian: Lakhwinder Tim MD Urine WBC's None Normal 0-5 [facility] Comment on above: Performed By: #### C DP #### [facility] [address] [place] [address] Special Librarian: Lakhwinder Tim MD [id number] 03-10-2024 SARS-CoV-2 (COVID-19) RNA MARICEL+probe Ql (Unsp spec) Detected Abnormal NOTDET [facility] Comment on above: Result Comment: Rapid [...] this assay. Fact sheet for Healthcare Providers: https://www.fda.gov/media/511596/download Fact sheet for Patients: https://www.fda.gov/media/777692/download Methodology: Isothermal Nucleic Acid Amplification Results reported to the appropriate Health Department Performed By: #### U MICAO, UAX #### [facility] [address] [place] [address] Special Librarian: Lakhwinder Tim MD BLOOD CULTUREon 02-07-2024 Bacteria identified Aer cx Nom (Bld) SPECIMEN NOTES SUBOPTIMAL VOLUME OF BLOOD COLLECTED, RESULTS MAY BE AFFECTED. CULTURE RESULTS NO GROWTH 5 DAYS Normal [facility] Comment on above: Performed By: #### C BCA, 20117-1, PINR, [id number], CMP #### [facility] [facility] ([id number]) [address] [place] [address] Bacteria identified Aer cx Nom (Bld) CULTURE RESULTS NO GROWTH 5 DAYS Normal [facility] CBC AND AUTO DIFFon 02-07-20 24 ABSOLUTE BASOPHIL 0.0 X10E9/L Normal 0.0-0.2 [facility] Comment on above: Performed By: #### 2 823-3 #### [facility] ([id number]) [address] [place] [address] ABSOLUTE NEUTROPHIL 3.0 X10E9/L Normal 1.5-6.6 [facility] Comment on above: Performed By: #### 2 823-3 #### [facility] ([id number]) [address], [address] [place] [address] Basophils/100 WBC (Bld) 0.4 % Normal [facility] Comment on above: Performed By: #### 2 823-3 #### [facility] ([id number]) [address], [address] [place] [address] Eosinophils (Bld) [#/Vol] 0.1 10*3/uL Normal 0.0-0.4 [facility] Comment on above: Performed By: #### 2 823-3 #### [facility] ([id number]) [address] [place] [address] Eosinophils/100 WBC (Bld) 1.4 % Normal [facility] Comment on above: Performed By: #### 2 823-3 #### [facility] ([id number]) [address], [address] [place] [address] Erythrocyte distribution width (RBC) [Ratio] 16.3 % High 11.5-15.0 [facility] Comment on above: Performed By: #### 2 823-3 #### [facility] ([id number]) [address], [address] [place] [address] Hematocrit (Bld) [Volume fraction] 32.5 % Low 35-47 [facility] Comment on above: Performed By: #### 2 823-3 #### [facility] ([id number]) [address] [place] [address] Hemoglobin (Bld) [Mass/Vol] 10.8 g/dL Low 11.7-15.5 [facility] Comment on above: Performed By: #### 2 823-3 #### [facility] ([id number]) [address] [place] [address] Lymphocytes (Bld) [#/Vol] 2.2 10*3/uL Normal 1.0-3.5 [facility] Comment on above: Performed By: #### 2 823-3 #### [facility] ([id number]) [address] [place] [address] Lymphocytes/100 WBC (Bld) 39.2 % Normal [facility] Comment on above: Performed By: #### 2 823-3 #### [facility] ([id number]) [address] [place] [address] MCH (RBC) [Entitic mass] 28.2 pg Normal 27-34 [facility] Comment on above: Performed By: #### 2 823-3 #### [facility] ([id number]) [address], [address] [place] [address] MCHC (RBC) [Mass/Vol] 33.4 g/dL Normal 32-36 [facility] Comment on above: Performed By: #### 2 823-3 #### [facility] ([id number]) [address], [address] [place] [address] MCV (RBC) [Entitic vol] 85 fL Normal 80-100 [facility] Comment on above: Performed By: #### 2 823-3 #### [facility] ([id number]) [address], [address] [place] [address] Monocytes (Bld) [#/Vol] 0.4 10*3/uL Normal 0-0.9 [facility] Comment on above: Performed By: #### 2 823-3 #### [facility] ([id number]) [address] [place] [address] Monocytes/100 WBC (Bld) 7.0 % Normal [facility] Comment on above: Performed By: #### 2 823-3 #### [facility] ([id number]) [address] [place] [address] Neutrophils/100 WBC (Bld) 52.0 % Normal [facility] Comment on above: Performed By: #### 2 823-3 #### [facility] ([id number]) [address] [place] [address] Platelet mean volume (Bld) [Entitic vol] 8.0 fL Normal 7-12 [facility] Comment on above: Performed By: #### 2 823-3 #### [facility] ([id number]) [address] [place] [address] Platelets (Bld) [#/Vol] 224 10*3/uL Normal 150-450 [facility] Comment on above: Performed By: #### 2 823-3 #### [facility] ([id number]) [address], [address] [place] [address] RBC COUNT 3.84 X10E12/L Normal 3.80-5.20 [facility] Comment on above: Performed By: #### 2 823-3 #### [facility] ([id number]) [address] [place] [address] WBC (Bld) [#/Vol] 5.7 10*3/uL Normal 4.0-11.0 [facility] Comment on above: Performed By: #### 2 823-3 #### [facility] ([id number]) [address] [facility], [address] [place] [address] CBC with Auto Differentialon 02-07-2024 Basophils (Bld) [#/Vol] [facility] Basophils/100 WBC (Bld) 1 % 0 - 2 % [facility] Eosinophils (Bld) [#/Vol] 0.12 10*3/uL [facility] Eosinophils/100 WBC (Bld) 3 % [...] Immature granulocytes/100 WBC (Bld) 0 % [address] [facility] Interpretation and review of laboratory [...] [facility] Monocytes/100 WBC (Bld) 0.36 % [facility] Neutrophils/100 WBC (Bld) 50 % 36 - 65 % [facility] Nucleated RBC/100 WBC (Bld) [Ratio] 0.0 % 0.0 per 100 WBC [facility] Platelet mean volume (Bld) [Entitic vol] 10.3 fL 8.1 - 13.5 fL [facility] Platelets (Bld) [#/Vol] 228 10*3/uL [facility] RBC (Bld) [#/Vol] 4.04 10*6/uL 3.95 - 5.1 1 m/uL [facility] Segmented neutrophils/100 WBC (Bld) 2.23 % [facility] WBC other (Bld) [#/Vol] 4.4 [facility] CBC with Diffon 02-07-2024 Abs. Basophil <0.03 Normal 0.00-0.20 [facility] Comment on above: Performed By: #### C P, LIP, CDP #### [facility] [address] [place] [address] [place] [id number] Special Librarian: Lakhwinder Tim MD Abs.Imm.Granulocyte <0.03 Normal 0.00-0.30 [facility] Comment on above: Performed By: #### C P, LIP, CDP #### [address] [place] [id number] Special Librarian: Lakhwinder Tim MD Abs.Neutrophil (Seg) 2.23 k/uL Normal 1.50-8.10 [facility] Comment on above: Performed By: #### C P, LIP, CDP #### [facility] [address] [place] [address] Dr. [place] [phone] Special Librarian: Lakhwinder Tim MD Basophils/100 WBC (Bld) 1 % Normal 0-2 [facility] Comment on above: Performed By: #### C P, LIP, CDP #### [address] [place] [address] Special Librarian: Lakhwinder Tim MD Eosinophils (Bld) [#/Vol] 0.12 10*3/uL Normal 0.00-0.44 [facility] Comment on above: Performed By: #### C P, LIP, CDP #### [facility] [address] [place], [place] [address] Special Librarian: Lakhwinder Tim MD Eosinophils/100 WBC (Bld) 3 % Normal 1-4 [facility] Comment on above: Performed By: #### C P, LIP, CDP #### [address] [place], [place] [address] Special Librarian: Lakhwinder Tim MD Erythrocyte distribution width (RBC) [Ratio] 15.0 % High 11.8-14.4 [facility] Comment on above: Performed By: #### C P, LIP, CDP #### [address] [place] [address] Special Librarian: Lakhwinder Tim MD Hematocrit (Bld) [Volume fraction] 35.2 % Low 36.3-47.1 [facility] Comment on above: Performed By: #### C P, LIP, CDP #### [address] [place], [place] [address] Special Librarian: Lakhwinder Tim MD Hemoglobin (Bld) [Mass/Vol] 11.4 g/dL Low 11.9-15.1 [facility] Comment on above: Performed By: #### C P, LIP, CDP #### [address] [place], [place] [address] Special Librarian: Lakhwinder Tim MD Immature granulocytes/100 WBC (Bld) 0 % Normal 0 [facility] Comment on above: Performed By: #### C P, LIP, CDP #### [address] [place], [facility]83 Special Librarian: Lakhwinder Tim MD Lymphocytes (Bld) [#/Vol] 1.69 10*3/uL Normal 1.10-3.70 [facility] Comment on above: Performed By: #### C P, LIP, CDP #### [facility] [address] [place], [facility]83 Special Librarian: Lakhwinder Tim MD Lymphocytes/100 WBC (Bld) 38 % Normal 24-43 [facility] Comment on above: Performed By: #### C P, LIP, CDP #### [facility] [address] [place], [facility]83 Special Librarian: Lakhwinder Tim MD MCH (RBC) [Entitic mass] 28.2 pg Normal 25.2-33.5 [facility] Comment on above: Performed By: #### C P, LIP, CDP #### [address] [place], [facility]83 Special Librarian: Lakhwinder Tim MD MCHC (RBC) [Mass/Vol] 32.4 g/dL Normal 28.4-34.8 [facility] Comment on above: Performed By: #### C P, LIP, CDP #### [address] [place], [facility]83 Special Librarian: Lakhwinder Tim MD MCV (RBC) [Entitic vol] 87.1 fL Normal 82.6-102.9 [facility] Comment on above: Performed By: #### C P, LIP, CDP #### [address] [place], [facility]83 Special Librarian: Lakhwinder Tim MD Monocytes (Bld) [#/Vol] 0.36 10*3/uL Normal 0.10-1.20 [facility] Comment on above: Performed By: #### C P, LIP, CDP #### [address] [place] [address] Special Librarian: Lakhwinder Tim MD Monocytes/100 WBC (Bld) 8 % Normal 3-12 [facility] Comment on above: Performed By: #### C P, LIP, CDP #### [address] [place], [place] 5992983 Special Librarian: Lakhwinder Tim MD Neutrophil (Seg) 50 % Normal 36-65 [facility] Comment on above: Performed By: #### C P, LIP, CDP #### [address] [place], [place] 7359383 Special Librarian: Lakhwinder Tim MD NRBC Automated 0.0 per [address] [facility] Comment on above: Performed By: #### C P, LIP, CDP #### [address] [place], [place] 4570883 Special Librarian: Lakhwinder Tim MD Platelet mean volume (Bld) [Entitic vol] 10.3 fL Normal 8.1-13.5 [facility] Comment on above: Performed By: #### C P, LIP, CDP #### [address] [place], [place] 0[address]83 Special Librarian: Lakhwinder Tim MD Platelets (Bld) [#/Vol] 228 10*3/uL Normal 138-453 [facility] Comment on above: Performed By: #### C P, LIP, CDP #### [address] [place], [place] [address]122583 Special Librarian: Lakhwinder Tim MD RBC (Bld) [#/Vol] 4.04 10*6/uL Normal 3.95-5.11 [facility] Comment on above: Performed By: #### C P, LIP, CDP #### [address] [place], [place] 9620283 Special Librarian: Lakhwinder Tim MD WBC (Bld) [#/Vol] 4.4 10*3/uL Normal 3.5-11.3 [facility] Comment on above: Performed By: #### C P, LIP, CDP #### [address] [place], [place] 3362583 Special Librarian: Lakhwinder Tim MD [facility] METABOLIC [facility] 02-07-2024 Albumin [Mass/Vol] 3.7 g/dL Normal 3.2-5.3 [facility] Comment on above: Performed By: #### 2 823-3 #### [facility] ([id number]) [address], [address] [place] [address] ALP [Catalytic activity/Vol] 45 U/L Normal 39-130 [facility] Comment on above: Performed By: #### 2 823-3 #### [facility] ([id number]) [address] [place] [address] ALT [Catalytic activity/Vol] 7 U/L Normal 0-31 [facility] Comment on above: Performed By: #### 2 823-3 #### [facility] ([id number]) [address] [place] [address] Anion gap [Moles/Vol] 10 mmol/L Normal 5-15 [facility] Comment on above: Performed By: #### 2 823-3 #### [facility] ([id number]) [address] [place] [address] AST [Catalytic activity/Vol] 12 U/L Normal 0-41 [facility] Comment on above: Performed By: #### 2 823-3 #### [facility] ([id number]) [address] [place] [address] Bilirubin [Mass/Vol] 0.3 mg/dL Normal 0.3-1.2 [facility] Comment on above: Performed By: #### 2 823-3 #### [facility] ([id number]) [address] [place] [address] Calcium [Mass/Vol] 9.1 mg/dL Normal 8.5-10.5 [facility] Comment on above: Performed By: #### 2 823-3 #### [facility] ([id number]) [address] [place] [address] Chloride [Moles/Vol] 107 mmol/L Normal 98-109 [facility] Comment on above: Performed By: #### 2 823-3 #### [facility] ([id number]) [address] [place] [address] CO2 [Moles/Vol] 25 mmol/L Normal 22-32 [facility] Comment on above: Performed By: #### 2 823-3 #### [facility] ([id number]) [address] [place] [address] Creatinine [Mass/Vol] 0.54 mg/dL Normal 0.40-1.00 [facility] Comment on above: Result Comment: METH OD TRACEABLE TO IDMS STANDARD Performed By: #### 2 823-3 #### [facility] ([id number]) [address] [place] [address] eGFR (CKD-EPI) NON-RACE DEPENDENT >90 Normal >59 [facility] Comment on above: Result Comment: Reported eGFR is based on the CKD-EPI 1 equation that does not use a race coefficient. Performed By: #### 2 823-3 #### [facility] ([id number]) [address] [place] [address] Glucose [Mass/Vol] 96 mg/dL Normal 65-99 [facility] Comment on above: Performed By: #### 2 823-3 #### [facility] ([id number]) [address] [place] [address] Potassium [Moles/Vol] 3.5 mmol/L Normal 3.5-5.0 [facility] Comment on above: Performed By: #### 2 823-3 #### [facility] ([id number]) [address] [place] [address] Protein [Mass/Vol] 7.3 g/dL Normal 6.0-8.0 [facility] Comment on above: Performed By: #### 2 823-3 #### [facility] ([id number]) [address] [place] [address] Sodium [Moles/Vol] 142 mmol/L Normal 134-146 [facility] Comment on above: Performed By: #### 2 823-3 #### [facility] ([id number]) [address] [place] [address] Urea nitrogen [Mass/Vol] 3 mg/dL Low 5-23 [facility] Comment on above: Performed By: #### 2 823-3 #### [facility] ([id number]) [address] [place] [address] CT ABDOMEN PELVIS W IV CONTR Marichuy [...] Alejo MD 02/07/[address] [facility] Abdomen and Pelvis Zoey Beltre 02-07-2024 No acute abdominopel davi abnormality. [facility] EXAMINATION: CT OF THE [...] no acute fracture or aggressive osseous lesion. [facility] Carlos Alejo MD - [...] lesion. IMPRESSION: No acute abdominopelvic abnormality. [facility] Radiology Study observation (narrative) [facility] CT Abdomen and Pelvis W cont rast IVOrdered By: Carlos Alejo on 02-07-2024 [facility] Work Phone: Comp Metabolic Profon 2023 Albumin [Mass/Vol] 4.2 g/dL Normal 3.5-5.2 [facility] Comment on above: Performed By: #### C P, LIP, CDP #### [facility] [address] [place] [address] [place] [address] Special Librarian: Lakhwinder Tim MD Albumin/Glob Ratio 1.2 Normal 1.0-2.5 [facility] Comment on above: Performed By: #### C P, LIP, CDP #### [facility] [address] [place] [address] Dr. [place], [place] 9636683 Special Librarian: Lakhwinder Tim MD Alkaline Phos 56 U/L Normal 35-104 [facility] Comment on above: Performed By: #### C P, LIP, CDP #### [facility] [address] [place] [address] [place]. [place], [place] 3759483 Special Librarian: Lakhwinder Tim MD ALT [Catalytic activity/Vol] 7 U/L Normal 5-33 [facility] Comment on above: Performed By: #### C P, LIP, CDP #### [facility] [address] [place] [address] [place] [address] Special Librarian: Lakhwinder Tim MD Anion gap [Moles/Vol] 11 mmol/L Normal 9-17 [facility] Comment on above: Performed By: #### C P, LIP, CDP #### [facility] [address] [place] [address] Special Librarian: Lakhwinder Tim MD AST [Catalytic activity/Vol] 13 U/L Normal <32 [facility] Comment on above: Performed By: #### C P, LIP, CDP #### [facility] [address] [place], [place] 4550683 Special Librarian: Lakhwinder Tim MD Bilirubin [Mass/Vol] 0.2 mg/dL Low 0.3-1.2 [facility] Comment on above: Performed By: #### C P, LIP, CDP #### [facility] [address] [place] [address] Dr. [place], [place] 0063583 Special Librarian: Lakhwinder Tim MD BUN/CRE Ratio 8 Low 9-20 [facility] Comment on above: Performed By: #### C P, LIP, CDP #### [address] [place], [place] 8919183 Special Librarian: Lakhwinder Tim MD Calcium [Mass/Vol] 9.1 mg/dL Normal 8.6-10.4 [facility] Comment on above: Performed By: #### C P, LIP, CDP #### [facility] [address] [place] [address] [place]. [place], [place] 3491783 Special Librarian: Lakhwinder Tim MD Chloride [Moles/Vol] 102 mmol/L Normal 98-107 [facility] Comment on above: Performed By: #### C P, LIP, CDP #### [address] [place] [address] Special Librarian: Lakhwinder Tim MD CO2 [Moles/Vol] 26 mmol/L Normal 20-31 [facility] Comment on above: Performed By: #### C P, LIP, CDP #### [facility] [address] [place] [address] Special Librarian: Lakhwinder Tim MD Creatinine [Mass/Vol] 0.5 mg/dL Normal 0.5-0.9 [facility] Comment on above: Performed By: #### C P, LIP, CDP #### [facility] [address] [place] [address] Special Librarian: Lakhwinder Tim MD GFR/1.73 sq M.predicted among non-blacks MDRD (S/P/Bld) [Vol rate/Area] mL/min/{1.73_m2} Normal >60 [facility] Comment on above: Result Comment: These [...] By: #### C P, LIP, CDP #### [facility] [address] [place] [address] Special Librarian: Lakhwinder Tim MD Glucose [Mass/Vol] 83 mg/dL Normal 70-99 [facility] Comment on above: Performed By: #### C P, LIP, CDP #### [facility] [address] [place] [address] Special Librarian: Lakhwinder Tim MD Potassium [Moles/Vol] 4.1 mmol/L Normal 3.7-5.3 [facility] Comment on above: Performed By: #### C P, LIP, CDP #### [facility] [address] [place] [address] Special Librarian: Lakhwinder Tim MD Protein [Mass/Vol] 7.7 g/dL Normal 6.4-8.3 [facility] Comment on above: Performed By: #### C P, LIP, CDP #### [facility] [address] [place] [address] Special Librarian: Lakhwinder Tim MD Sodium [Moles/Vol] 139 mmol/L Normal 135-144 [facility] Comment on above: Performed By: #### C P, LIP, CDP #### [facility] [address] [place] [address] Special Librarian: Lakhwinder Tim MD Urea nitrogen [Mass/Vol] 4 mg/dL Low 6-20 [facility] Comment on above: Performed By: #### C P, LIP, CDP #### [facility] [address] [place] [address] Special Librarian: Lakhwinder Tim MD Comprehensive Metabolic Pane [facility] 02-07-2024 Albumin [Mass/Vol] 4.2 g/dL 3.5 - 5.2 g/dL [facility] Albumin/Globulin [Mass ratio] 1.2 {ratio} 1.0 - 2.5 [facility] ALP [Catalytic activity/Vol] 56 U/L 35 - 104 U/L [facility] ALT [Catalytic activity/Vol] 7 U/L 5 - 33 U/L [facility] Anion gap [Moles/Vol] 11 mmol/L 9 - 17 mmol/L [facility] AST [Catalytic activity/Vol] 13 U/L NINF - 32 U/L [facility] Bilirubin [Mass/Vol] 0.2 mg/dL Low 0.3 - 1 .2 mg/dL [facility] Calcium [Mass/Vol] 9.1 mg/dL 8.6 - 10. 4 mg/dL [facility] Chloride [Moles/Vol] 102 mmol/L 98 - 10 7 mmol/L [facility] CO2 [Moles/Vol] 26 mmol/L 20 - 31 mmol/L [facility] Creatinine [Mass/Vol] 0.5 mg/dL 0.5 - 0.9 mg/dL [facility] Est, Glom Filt Rate - [facility] Comment on above: These results are [...] 83 mg/dL 70 - 99 mg/dL [facility] Interpretation and review of laboratory results Abnormal [facility] Potassium [Moles/Vol] 4.1 mmol/L 3.7 - 5.3 mmol/L [facility] Protein [Mass/Vol] 7.7 g/dL 6.4 - 8.3 g/dL [facility] Sodium [Moles/Vol] 139 mmol/L 135 - 144 mmol/L [facility] Urea nitrogen [Mass/Vol] 4 mg/dL Low 6 - 20 mg/dL [facility] Urea nitrogen/Creatinine [Mass ratio] 8 mg/mg Low 9 - 20 [facility] LIPASEon 02-07-2024 Lipase [Catalytic activity/Vol] 11 U/L Normal 11-82 [facility] Comment on above: Performed By: #### C BCA, 74306-1, PINR, [id number], CMP #### [facility] ([id number]) [address] [place] [address] Lactic Acidon 02-07-2024 Lactate (BldV) [Moles/Vol] 0.6 mmol/L 0.5 - 2.2 mmol/L [facility] Lactate [Moles/Vol] 0.6 mmol/L Normal 0.5-2.2 [facility] Comment on above: Performed By: #### C P, LIP, CDP #### [facility] [address] [place] [address] Special Librarian: Lakhwinder Tim MD Lipaseon 02-07-2024 Lipase [Catalytic activity/Vol] 19 U/L 13 - 60 U/L [facility] Lipase [Catalytic activity/Vol] 19 U/L Normal 13-60 [facility] Comment on above: Performed By: #### C P, LIP, CDP #### [facility] [address] [place] [address] Special Librarian: Lakhwinder Tim MD Microscopic Urinalysison Epithelial cells LM.HPF (Urine sed) [#/Area] 0 TO 2 [facility] RBC LM.HPF (Urine sed) [#/Area] 0 TO 2 [facility] WBC LM.HPF (Urine sed) [#/Area] 0 TO 2 [facility] No Panel Informationon 02-06 [facility] Troponin I.cardiac High sens itivity method [Mass/Vol]on 02-07-2024 1 HOUR TROP I, HIGH SENSITIVITY <2 Normal <16 [facility] Comment on above: Performed By: #### C BCA, 17695-7, PINR, [id number], CMP #### [facility] ([id number]) [address] [place] [address] TROPONIN I, HIGH SENSITIVITY <2 Normal <16 [facility] Comment on above: Performed By: #### C BCA, 52695-7, PINR, [id number], CMP #### [facility] ([id number]) [address] [place] [address] UA w/Reflex Cultureon 2023 Bilirubin, SemiQt,Ur Negative Normal NEG [facility] Comment on above: Performed By: #### U MICAO, UAX #### [facility] [address] [place] [address] Special Librarian: Lakhwinder Tim MD Blood, Urine Negative Normal NEG [facility] Comment on above: Performed By: #### U MICAO, UAX #### [facility] [address] [place] [address] Special Librarian: Lakhwinder Tim MD Clarity (U) Clear Normal CLEAR [facility] Comment on above: Performed By: #### U MICAO, UAX #### [facility] [address] [place], [place] [id number] Special Librarian: Lakhwinder Tim MD Color (U) Yellow Normal YEL [facility] Comment on above: Performed By: #### U MICAO, UAX #### [facility] [address] [place], [place] [id number] Special Librarian: Lakhwinder Tim MD Glucose Ql (U) Negative Normal NEG [facility] in [facility] Comment on above: Performed By: #### U MICAO, UAX #### [facility] [address] [place], [place] [id number] Special Librarian: Lakhwinder Tim MD Ketones Ql (U) Negative Normal NEG [facility] Comment on above: Performed By: #### U MICAO, UAX #### [facility] [address] [place], [place] [id number] Special Librarian: Lakhwinder Tim MD Leukocyte esterase Test strip Ql (U) Negative Normal NEG [facility] Comment on above: Performed By: #### U MICAO, UAX #### [facility] [address] [place], [place] [address]83 Special Librarian: Lakhwinder Tim MD Nitrite,Ur Negative Normal NEG [facility] Comment on above: Performed By: #### U MICAO, UAX #### [facility] [address] [place], [place] 265[address]83 Special Librarian: Lakhwinder Tim MD PH,Ur 7.5 Normal 5.0-9.0 [facility] Comment on above: Performed By: #### U MICAO, UAX #### [facility] [address] [place], [place] 595[address]83 Special Librarian: Lakhwinder Tim MD Protein Ql (U) Negative Normal NEG [facility] Comment on above: Performed By: #### U KARINA UAX #### [facility] [address] [place] [address] Special Librarian: Lakhwinder Tim MD Spec. [place],Ur 1.010 Normal 1.010-1.020 [facility] Comment on above: Performed By: #### U KARINA UAX #### [facility] [address] [place] [address] Special Librarian: Lakhwinder Tim MD Urobilinogen,Ur Normal Normal 0.0-1.0 [facility] Comment on above: Performed By: #### U KARINA UAX #### [facility] [address] [place] [address] [place] [address] Special Librarian: Lakhwinder Tim MD URN MACROSCOPIC NURon 2023 BILIRUBIN LYNSEY Negative Normal [facility] Comment on above: Performed By: #### C BCA, 18920-1, PINR, [id number], CMP #### [facility] ([id number]) [address] [place] [address] BLOOD/HGB L[place]Y Trace Abnormal [facility] Comment on above: Performed By: #### Chantal BCA, 26080-3, PINR, [id number], CMP #### [facility] ([id number]) [address], [address] [place] [address] GLUCOSE [place]Y Negative Normal [facility] Comment on above: Performed By: #### C BCA, 93235-9, PINR, [id number], CMP #### [facility] ([id number]) [address] [facility] [address] KETONES LYNSEY Negative Normal [facility] Comment on above: Performed By: #### C BCA, 07899-8, PINR, [id number], CMP #### [facility] ([id number]) [address] [place] [address] LEUKOCYTE ESTERASE LYNSEY Negative Normal NEG [facility] Comment on above: Performed By: #### C BCA, 05124-6, PINR, [id number], CMP #### [facility] ([id number]) [address] [place] [address] NITRITE L[place]SEY Negative Normal NEG [facility] Comment on above: Performed By: #### C BCA, 61808-3, PINR, [id number], CMP #### [facility] ([id number]) [address] [place] [address] PH LYNSEY 7.0 Normal 5.0-8.5 [facility] Comment on above: Performed By: #### C BCA, 53283-8, PINR, [id number], CMP #### [facility] ([id number]) [address] [place] [address] PROTEIN LYNSEY Negative Normal NEG [facility] Comment on above: Performed By: #### C BCA, 42907-2, PINR, [id number], CMP #### [facility] ([id number]) [address] [place] [address] SPECIFIC GRAVITY LYNSEY 1.020 Normal 1.003-1.035 [facility] Comment on above: Performed By: #### C BCA, 20611-4, PINR, [id number], CMP #### [facility] ([id number]) [address] [place] [address] UROBILINOGEN LYNSEY 0.2 eu/dL Normal <1.1 [facility] Comment on above: Performed By: #### C BCA, 70307-9, PINR, [id number], CMP #### [facility] ([id number]) [address] [place] [address] US PELVIC WITH TRANSVAGINAL AND DUPLEXon 02-07-2024 [...] Cifuentes MD on 02/07/2024 10:56 PM Normal [facility] Urinalysis with Reflex to Cu ltureon 02-07-2024 Bilirubin Ql (U) Negative NEGATIVE [facility] Clarity (U) Clear Clear [facility] Color (U) Yellow Yellow [facility] Glucose Test strip (U) [Mass/Vol] Negative NEGATIVE mg/dL [facility] Hemoglobin Auto test strip Ql (U) Negative NEGATIVE [facility] Ketones (U) [Mass/Vol] Negative NEGATIVE mg/dL [facility] Leukocyte esterase Test strip Ql (U) Negative NEGATIVE [facility] Nitrite Ql (U) Negative NEGATIVE [facility] pH (U) 7.5 [pH] 5.0 - 9.0 [facility] Protein (U) [Mass/Vol] Negative NEGATIVE mg/dL [facility] Specific gravity (U) [Rel density] 1.010 1.010 - 1.020 [facility] Urobilinogen Qn (U) Normal 0.0 - 1. 0 EU/dL [facility] Urinalysis,Microon 4 Epithelial cells LM Ql (Urine sed) 0 TO 2 Normal 0-25 [facility] Comment on above: Performed By: #### U OSMINO, UAX #### [facility] [address] [place] [address] Special Librarian: Lakhwinder Tim MD Urine RBC's 0 TO 2 Normal 0-2 [facility] Comment on above: Performed By: #### U MICAO, UAX #### [facility] [address] [place] [address] Special Librarian: Lakhwinder Tim MD Urine WBC's 0 TO 2 Normal 0-5 [facility] Comment on above: Performed By: #### U MICAO, UAX #### [facility] [address] [place] [address] Special Librarian: Lakhwinder Tim MD Urine collection deviceon ER EXTRA URINES ER EXTRA URINE ORDER IN PROCESS Normal [facility] Vaginitis DNA Probeon 2023 Anca Negative Normal NEG [facility] Comment on above: Result Comment: for Anca sp. Method of testing is a DNA probe intended for detection and identification of Anca species, Gardnerella vaginalis, and Trichomonas vaginalis nucleic acid in vaginal fluid specimens from patients with symptoms of vaginitis/vaginosis. Performed By: #### U MICAO, UAX #### [facility] [address] [place] [address] [place] [address] Special Librarian: Lakhwinder Tim MD Gardnerella Negative Normal [facility] Comment on above: Result Comment: for Gardnerella vaginalis Performed By: #### U MICAO, UAX #### [address] [place] [address] Special Librarian: Lakhwinder Tim MD Trichomonas Negative Normal [facility] Comment on above: Result Comment: for Trichomonas Vaginalis Performed By: #### U MICAO, UAX #### [address] [place] [address] Special Librarian: Lakhwinder Tim MD Cult,Bloodon 02-06-2024 Cult,Blood Specimen [...] to and read back by:ROLAND AGUILLON 02/04/2024 @165 by tech [facility] Report Status FINAL 02/06/2024 [facility] Comment on above: Performed By: #### B C #### [facility] [employer] [address] [place] [address] Special Librarian: Sacha Lai MD [address] [place] [address] Special Librarian: Lakhwinder Tim MD Vaginitis DNA Probeon 2023 Source .VAGINAL SWAB Normal [facility] Comment on above: Performed By: #### U MICAO, UAX #### [facility] [address] [place], [place] [address] Special Librarian: Lakhwinder Tim MD Basic Metabolic Profon 02-04 Anion gap [Moles/Vol] 10 mmol/L Normal 9-17 [facility] Comment on above: Performed By: #### C P, LIP, CDP #### [facility] [address] [place], [place] [address] Special Librarian: Lakhwinder Tim MD BUN/CRE Ratio 10 Normal 9-20 [facility] Comment on above: Performed By: #### C P, LIP, CDP #### [facility] [address] [place], [place] 465[address]83 Special Librarian: Lakhwinder Tim MD Calcium [Mass/Vol] 9.1 mg/dL Normal 8.6-10.4 [facility] Comment on above: Performed By: #### C P, LIP, CDP #### [facility] [address] [place], [place] 56[address]783 Special Librarian: Lakhwinder Tim MD Chloride [Moles/Vol] 102 mmol/L Normal 98-107 [facility] Comment on above: Performed By: #### C P, LIP, CDP #### [facility] [address] [place], [place] 989[address]83 Special Librarian: Lakhwinder Tim MD CO2 [Moles/Vol] 27 mmol/L Normal 20-31 [facility] Comment on above: Performed By: #### C P, LIP, CDP #### [facility] [address] [place], [place] [address]83 Special Librarian: Lakhwinder Tim MD Creatinine [Mass/Vol] 0.7 mg/dL Normal 0.5-0.9 [facility] Comment on above: Performed By: #### C P, LIP, CDP #### [facility] [address] [place], [place] [address]83 Special Librarian: Lakhwinder Tim MD GFR/1.73 sq M.predicted among non-blacks MDRD (S/P/Bld) [Vol rate/Area] mL/min/{1.73_m2} Normal >60 [facility] Comment on above: Result Comment: These [...] By: #### C P, LIP, CDP #### [facility] [address] [place] [address] [place] [address] Special Librarian: Lakhwinder Tim MD Glucose [Mass/Vol] 93 mg/dL Normal 70-99 [facility] Comment on above: Performed By: #### C P, LIP, CDP #### [facility] [address] [place] [address] [place] [place], [place] 8[address]83 Special Librarian: Lakhwinder Tim MD Potassium [Moles/Vol] 3.7 mmol/L Normal 3.7-5.3 [facility] Comment on above: Performed By: #### C P, LIP, CDP #### [address] [place], [place] [address] Special Librarian: Lakhwinder Tim MD Sodium [Moles/Vol] 139 mmol/L Normal 135-144 [facility] Comment on above: Performed By: #### C P, LIP, CDP #### [facility] [address] [place] [address] [place] [address] Special Librarian: Lakhwinder Tim MD Urea nitrogen [Mass/Vol] 7 mg/dL Normal 6-20 [facility] Comment on above: Performed By: #### C P, LIP, CDP #### [facility] [address] [place] [address] [place] [address] Special Librarian: Lakhwinder Tim MD CBC with Diffon 02-05-2024 Abs. Basophil <0.03 Normal 0.00-0.20 [facility] Comment on above: Performed By: #### C P, LIP, CDP #### [address] [address] Special Librarian: Lakhwinder Tim MD Abs.Imm.Granulocyte <0.03 Normal 0.00-0.30 [facility] Comment on above: Performed By: #### C P, LIP, CDP #### [address] [place] [address] Special Librarian: Lakhwinder Tim MD Abs.Neutrophil (Seg) 3.35 k/uL Normal 1.50-8.10 [facility] Comment on above: Performed By: #### C P, LIP, CDP #### [address] [place], [place] [address] Special Librarian: Lakhwinder Tim MD Basophils/100 WBC (Bld) 0 % Normal 0-2 [facility] Comment on above: Performed By: #### C P LIP, CDP #### [address] [place], [place] [address] Special Librarian: Lakhwinder Tim MD Eosinophils (Bld) [#/Vol] 0.10 10*3/uL Normal 0.00-0.44 [facility] Comment on above: Performed By: #### C P, LIP, CDP #### [facility] [address] [place] [address] Dr. [place], [facility]83 Special Librarian: Lakhwinder Tim MD Eosinophils/100 WBC (Bld) 2 % Normal 1-4 [facility] Comment on above: Performed By: #### C P, LIP, CDP #### [facility] [address] [place], [place] 0337383 Special Librarian: Lakhwinder Tim MD Erythrocyte distribution width (RBC) [Ratio] 15.0 % High 11.8-14.4 [facility] Comment on above: Performed By: #### C P, LIP, CDP #### [facility] [address] [place] [address] Special Librarian: Lakhwinder Tim MD Hematocrit (Bld) [Volume fraction] 33.6 % Low 36.3-47.1 [facility] Comment on above: Performed By: #### C P, LIP, CDP #### [facility] [address] [place], [facility]83 Special Librarian: Lakhwinder Tim MD Hemoglobin (Bld) [Mass/Vol] 11.0 g/dL Low 11.9-15.1 [facility] Comment on above: Performed By: #### C P, LIP, CDP #### [address] [place] [address] Special Librarian: Lakhwinder Tim MD Immature granulocytes/100 WBC (Bld) 0 % Normal 0 [facility] Comment on above: Performed By: #### C P, LIP, CDP #### [address] [place], [facility]83 Special Librarian: Lakhwinder Tim MD Lymphocytes (Bld) [#/Vol] 2.20 10*3/uL Normal 1.10-3.70 [facility] Comment on above: Performed By: #### C P, LIP, CDP #### [facility] [address] [place], [facility]83 Special Librarian: Lakhwinder Tim MD Lymphocytes/100 WBC (Bld) 35 % Normal 24-43 [facility] Comment on above: Performed By: #### C P, LIP, CDP #### [facility] [address] [place] [address] Special Librarian: Lakhwinder Tim MD MCH (RBC) [Entitic mass] 28.2 pg Normal 25.2-33.5 [facility] Comment on above: Performed By: #### C P, LIP, CDP #### [address] [place], [place] [address] Special Librarian: Lakhwinder Tim MD MCHC (RBC) [Mass/Vol] 32.7 g/dL Normal 28.4-34.8 [facility] Comment on above: Performed By: #### C P, LIP, CDP #### [address] [place], [place] [address] Special Librarian: Lakhwinder Tim MD MCV (RBC) [Entitic vol] 86.2 fL Normal 82.6-102.9 [facility] Comment on above: Performed By: #### C P, LIP, CDP #### [address] [place], [facility]83 Special Librarian: Lakhwinder Tim MD Monocytes (Bld) [#/Vol] 0.59 10*3/uL Normal 0.10-1.20 [facility] Comment on above: Performed By: #### C P, LIP, CDP #### [address] [place], [facility]83 Special Librarian: Lakhwinder Tim MD Monocytes/100 WBC (Bld) 9 % Normal 3-12 [facility] Comment on above: Performed By: #### C P, LIP, CDP #### [address] [place], [facility]83 Special Librarian: Lakhwinder Tim MD Neutrophil (Seg) 54 % Normal 36-65 [facility] Comment on above: Performed By: #### C P, LIP, CDP #### [address] [place] [address] Special Librarian: Lakhwinder Tim MD NRBC Automated 0.0 per [address] [facility] Comment on above: Performed By: #### C P, LIP, CDP #### [facility] [address] [place] [address] [place]. [place], [place] [id number] Special Librarian: Lakhwinder Tim MD Platelet mean volume (Bld) [Entitic vol] 10.0 fL Normal 8.1-13.5 [facility] Comment on above: Performed By: #### C P, LIP, CDP #### [address] [place], [place] [phone] Special Librarian: Lakhwinder Tim MD Platelets (Bld) [#/Vol] 261 10*3/uL Normal 138-453 [facility] Comment on above: Performed By: #### C P, LIP, CDP #### [address] [place], [facility]83 Special Librarian: Lakhwinder Tim MD RBC (Bld) [#/Vol] 3.90 10*6/uL Low 3.95-5.11 [facility] Comment on above: Performed By: #### C P, LIP, CDP #### [address] [place], [facility]83 Special Librarian: Lakhwinder Tim MD WBC (Bld) [#/Vol] 6.3 10*3/uL Normal 3.5-11.3 [facility] Comment on above: Performed By: #### C P, LIP, CDP #### [address] [place], [place] [address] Special Librarian: Lakhwinder Tim MD UA w/Reflex Cultureon 2023 Bilirubin, SemiQt,Ur Negative Normal NEG [facility] Comment on above: Performed By: #### U MICAO, UAX #### [address] [place], [place] [phone] Special Librarian: Lakhwinder Tim MD Blood, Urine Negative Normal NEG [facility] Comment on above: Performed By: #### U MICAO, UAX #### [address] [place], [facility]83 Special Librarian: Lakhwinder Tim MD Clarity (U) Clear Normal CLEAR [facility] Comment on above: Performed By: #### U MICAO, UAX #### [facility] [address] [place] [address] [place]. [place], [place] 784[address]83 Special Librarian: Lakhwinder Tim MD Color (U) Yellow Normal YEL [facility] Comment on above: Performed By: #### U MICAO, UAX #### [facility] [address] [place], [place] 90[address]83 Special Librarian: Lakhwinder Tim MD Glucose Ql (U) Negative Normal NEG [facility] Comment on above: Performed By: #### U MICAO, UAX #### [facility] [address] [place] [address] [place]. [place], [place] 2226883 Special Librarian: Lakhwinder Tim MD Ketones Ql (U) Negative Normal NEG [facility] Comment on above: Performed By: #### U MICAO, UAX #### [facility] [address] [place] [address] [place] [place], [place] 955[address]83 Special Librarian: Lakhwinder Tim MD Leukocyte esterase Test strip Ql (U) Negative Normal NEG [facility] Comment on above: Performed By: #### U MICAO, UAX #### [facility] [address] [place] [address] [place] [address] Special Librarian: Lakhwinder Tim MD Nitrite,Ur Negative Normal NEG [facility] Comment on above: Performed By: #### U MICAO, UAX #### [facility] [address] [place], [place] 1379483 Special Librarian: Lakhwinder Tim MD PH,Ur 8.0 Normal 5.0-9.0 [facility] Comment on above: Performed By: #### U MICAO, UAX #### [facility] [address] [place], [place] 352[address]83 Special Librarian: Lakhwinder Tim MD Protein Ql (U) Negative Normal NEG [facility] Comment on above: Performed By: #### U MICAO, UAX #### [facility] [address] [place] [address] Special Librarian: Lakhwinder Tim MD Spec. [place],Ur 1.020 Normal 1.010-1.020 [facility] Comment on above: Performed By: #### U MICAO, UAX #### [facility] [address] [place] [address] Special Librarian: Lakhwinder Tim MD Urobilinogen,Ur Normal Normal 0.0-1.0 [facility] Comment on above: Performed By: #### U MICAO, UAX #### [facility] [address] [place] [address] Special Librarian: Lakhwinder Tim MD US PELVIS COMPLETEon 024 [...] Cotter MD 02/05/[address] [facility] Urinalysis,Microon 4 Bacteria TRACE Abnormal NONE [facility] Comment on above: Performed By: #### U MICAO, UAX #### [facility] [address] [place], [place] [phone] Special Librarian: Lakhwinder Tim MD Epithelial cells LM Ql (Urine sed) 0 TO 2 Normal 0-25 [facility] Comment on above: Performed By: #### U MICAO, UAX #### [facility] [address] [place] [address] Special Librarian: Lakhwinder Tim MD Mucus Strands TRACE Abnormal NONE [facility] Comment on above: Performed By: #### U MICAO, UAX #### [facility] [address] [place] [address] Special Librarian: Lakhwinder Tim MD Urine RBC's 0 TO 2 Normal 0-2 [facility] Comment on above: Performed By: #### U MICAO, UAX #### [facility] [address] [place], [facility]83 Special Librarian: Lakhwinder Tim MD Urine WBC's 0 TO 2 Normal 0-5 [facility] Comment on above: Performed By: #### U MICAO, UAX #### [facility] [address] [place] [address] Special Librarian: Lakhwinder Tim MD CBC with Auto Differentialon 02-03-2024 Basophils (Bld) [#/Vol] 0.03 10*3/uL [facility] Basophils/100 WBC (Bld) 0 % 0 - 2 % [facility] Eosinophils (Bld) [#/Vol] 0.13 10*3/uL [facility] Eosinophils/100 WBC (Bld) 2 % 1 - 4 % [facility] Erythrocyte distribution width (RBC) [Ratio] 14.9 % High 11.8 - 14.4 % [facility] Hematocrit (Bld) [Volume fraction] 33.2 % Low 36.3 - 47.1 % [facility] Hemoglobin (Bld) [Mass/Vol] 10.8 g/dL Low 11.9 - 15.1 g/dL [facility] Immature granulocytes (Bld) [#/Vol] [facility] Immature granulocytes/100 WBC (Bld) 0 % 0 [facility] Interpretation and review of laboratory results Abnormal [facility] Lymphocytes/100 WBC (Bld) 48 % High 24 - 43 % [facility] Lymphocytes/100 WBC (Bld) 3.20 % [facility] MCH (RBC) [Entitic mass] 27.8 pg 25.2 - 33.5 pg [facility] MCHC (RBC) [Mass/Vol] 32.5 g/dL 28.4 - 34.8 g/dL [facility] MCV (RBC) [Entitic vol] 85.6 fL 82.6 - 102.9 fL [facility] Monocytes/100 WBC (Bld) 9 % 3 - 12 % [facility] Monocytes/100 WBC (Bld) 0.63 % [facility] Neutrophils/100 WBC (Bld) 41 % 36 - 65 % [facility] Nucleated RBC/100 WBC (Bld) [Ratio] 0.0 % 0.0 per 100 WBC [facility] Platelet mean volume (Bld) [Entitic vol] 9.8 fL 8.1 - 13.5 fL [facility] Platelets (Bld) [#/Vol] 275 10*3/uL [facility] RBC (Bld) [#/Vol] 3.88 10*6/uL Low 3.95 - 5.1 1 m/uL [facility] Segmented neutrophils/100 WBC (Bld) 2.78 % [facility] WBC other (Bld) [#/Vol] 6.8 [facility] CBC with Diffon 02-03-2024 Abs. Basophil 0.03 k/uL Normal 0.00-0.20 [facility] Comment on above: Performed By: #### C P, LIP, CDP #### [facility] [address] [place] [address] Special Librarian: Lakhwinder Tim MD Abs.Imm.Granulocyte <0.03 Normal 0.00-0.30 [facility] Comment on above: Performed By: #### C P, LIP, CDP #### [address] [place], [place] [address] Special Librarian: Lakhwinder Tim MD Abs.Neutrophil (Seg) 2.78 k/uL Normal 1.50-8.10 [facility] Comment on above: Performed By: #### C P, LIP, CDP #### [address] [place], [place] [address] Special Librarian: Lakhwinder Tim MD Basophils/100 WBC (Bld) 0 % Normal 0-2 [facility] Comment on above: Performed By: #### C P, LIP, CDP #### [address] [place], [facility]83 Special Librarian: Lakhwinder Tim MD Eosinophils (Bld) [#/Vol] 0.13 10*3/uL Normal 0.00-0.44 [facility] Comment on above: Performed By: #### C P, LIP, CDP #### [address] [place], [place] [address] Special Librarian: Lakhwinder Tim MD Eosinophils/100 WBC (Bld) 2 % Normal 1-4 [facility] Comment on above: Performed By: #### C P, LIP, CDP #### [address] [place], [facility]83 Special Librarian: Lakhwinder Tim MD Erythrocyte distribution width (RBC) [Ratio] 14.9 % High 11.8-14.4 [facility] Comment on above: Performed By: #### C P, LIP, CDP #### [address] [place], [facility]83 Special Librarian: Lakhwinder Tim MD Hematocrit (Bld) [Volume fraction] 33.2 % Low 36.3-47.1 [facility] Comment on above: Performed By: #### C P, LIP, CDP #### [facility] [address] [place] [address] Dr[place], [place] [address] Special Librarian: Lakhwinder Tim MD Hemoglobin (Bld) [Mass/Vol] 10.8 g/dL Low 11.9-15.1 [facility] Comment on above: Performed By: #### C P, LIP, CDP #### [address] [place], [place] [address] Special Librarian: Lakhwinder Tim MD Immature granulocytes/100 WBC (Bld) 0 % Normal 0 [facility] Comment on above: Performed By: #### C P, LIP, CDP #### [address] [place] [id number] Special Librarian: Lakhwinder Tim MD Lymphocytes (Bld) [#/Vol] 3.20 10*3/uL Normal 1.10-3.70 [facility] Comment on above: Performed By: #### C P, LIP, CDP #### [address] [place], [facility]83 Special Librarian: Lakhwinder Tim MD Lymphocytes/100 WBC (Bld) 48 % High 24-43 [facility] Comment on above: Performed By: #### C P, LIP, CDP #### [address] [place], [facility]83 Special Librarian: Lakhwinder Tim MD MCH (RBC) [Entitic mass] 27.8 pg Normal 25.2-33.5 [facility] Comment on above: Performed By: #### C P, LIP, CDP #### [address] [place] [address] Special Librarian: Lakhwinder Tim MD MCHC (RBC) [Mass/Vol] 32.5 g/dL Normal 28.4-34.8 [facility] Comment on above: Performed By: #### C P, LIP, CDP #### [facility] [address] [place] [id number] Special Librarian: Lakhwinder Tim MD MCV (RBC) [Entitic vol] 85.6 fL Normal 82.6-102.9 [facility] Comment on above: Performed By: #### C P, LIP, CDP #### [facility] [address] [place], [facility]83 Special Librarian: Lakhwinder Tim MD Monocytes (Bld) [#/Vol] 0.63 10*3/uL Normal 0.10-1.20 [facility] Comment on above: Performed By: #### C P, LIP, CDP #### [address] [place], [facility]83 Special Librarian: Lakhwinder Tim MD Monocytes/100 WBC (Bld) 9 % Normal 3-12 [facility] Comment on above: Performed By: #### C P, LIP, CDP #### [address] [place], [facility]83 Special Librarian: Lakhwinder Tim MD Neutrophil (Seg) 41 % Normal 36-65 [facility] Comment on above: Performed By: #### C P, LIP, CDP #### [address] [place], [facility]83 Special Librarian: Lakhwinder Tim MD NRBC Automated 0.0 per [address] [facility] Comment on above: Performed By: #### C P, LIP, CDP #### [address] [place], [facility]83 Special Librarian: Lakhwinder Tim MD Platelet mean volume (Bld) [Entitic vol] 9.8 fL Normal 8.1-13.5 [facility] Comment on above: Performed By: #### C P, LIP, CDP #### [address] [place], [place] 3220383 Special Librarian: Lakhwinder Tim MD Platelets (Bld) [#/Vol] 275 10*3/uL Normal 138-453 [facility] Comment on above: Performed By: #### C P, LIP, CDP #### [address] [place] [address] Special Librarian: Lakhwinder Tim MD RBC (Bld) [#/Vol] 3.88 10*6/uL Low 3.95-5.11 [facility] Comment on above: Performed By: #### C P, LIP, CDP #### [address] [place] [address] Special Librarian: Lakhwinder Tim MD WBC (Bld) [#/Vol] 6.8 10*3/uL Normal 3.5-11.3 [facility] Comment on above: Performed By: #### C P, LIP, CDP #### [address] [place] [address] Special Librarian: Lakhwinder Tim MD CT ABDOMEN PELVIS W [...] Barillas MD 02/03/[address] [facility] CT Abdomen and Pelvis W cont rast Alexsander 02-03-2024 Multiloculated right adnexal cystic mass with inflammatory change. Recommend pelvic ultrasound. [facility] RIS CONSOLIDATED EXAMINATION: CT OF THE [...] with inflammatory change. Recommend pelvic ultrasound. [facility] Radiology Study observation (narrative) [facility] CT Abdomen and Pelvis W cont rast IVOrdered By: Tres Barillas on 02-03-2024 [facility] Work Phone: Comp Metabolic Profon 2023 Albumin [Mass/Vol] 4.1 g/dL Normal 3.5-5.2 [facility] Comment on above: Performed By: #### C P, TOM, CDP #### [facility] [address] [place] [address] Special Librarian: Lakhwinder Tim MD Albumin/Glob Ratio 1.1 Normal 1.0-2.5 [facility] Comment on above: Performed By: #### C P, LIP, CDP #### [facility] [address] [place], [place] 7245683 Special Librarian: Lakhwinder Tim MD Alkaline Phos 64 U/L Normal 35-104 [facility] Comment on above: Performed By: #### C P, LIP, CDP #### [facility] [address] [place], [place] [id number] Special Librarian: Lakhwinder Tim MD ALT [Catalytic activity/Vol] 7 U/L Normal 5-33 [facility] Comment on above: Performed By: #### C P, LIP, CDP #### [facility] [address] [place], [place] 6724283 Special Librarian: Lakhwinder Tim MD Anion gap [Moles/Vol] 11 mmol/L Normal 9-17 [facility] Comment on above: Performed By: #### C P, LIP, CDP #### [facility] [address] [place], [place] 0289783 Special Librarian: Lakhwinder Tim MD AST [Catalytic activity/Vol] 12 U/L Normal <32 [facility] Comment on above: Performed By: #### C P, LIP, CDP #### [facility] [address] [place], [place] 7615883 Special Librarian: Lakhwinder Tim MD Bilirubin [Mass/Vol] 0.2 mg/dL Low 0.3-1.2 [facility] Comment on above: Performed By: #### C P, LIP, CDP #### [facility] [address] [place], [place] 3707283 Special Librarian: Lakhwinder Tim MD BUN/CRE Ratio 20 Normal 9-20 [facility] Comment on above: Performed By: #### C P, LIP, CDP #### [facility] [address] [place], [place] 9639783 Special Librarian: Lakhwinder Tim MD Calcium [Mass/Vol] 8.9 mg/dL Normal 8.6-10.4 [facility] Comment on above: Performed By: #### C P, LIP, CDP #### [facility] [address] [place], [place] 1039683 Special Librarian: Lakhwinder Tim MD Chloride [Moles/Vol] 99 mmol/L Normal 98-107 [facility] Comment on above: Performed By: #### C P, LIP, CDP #### [facility] [address] [place], [place] 6664583 Special Librarian: Lakhwinder Tim MD CO2 [Moles/Vol] 28 mmol/L Normal 20-31 [facility] Comment on above: Performed By: #### C P, LIP, CDP #### [facility] [address] [place], [place] 3158683 Special Librarian: Lakhwinder Tim MD Creatinine [Mass/Vol] 0.6 mg/dL Normal 0.5-0.9 [facility] Comment on above: Performed By: #### C P, LIP, CDP #### [facility] [address] [place] [address] Special Librarian: Lakhwinder Tim MD GFR/1.73 sq M.predicted among non-blacks MDRD (S/P/Bld) [Vol rate/Area] mL/min/{1.73_m2} Normal >60 [facility] Comment on above: Result Comment: These [...] By: #### C P, LIP, CDP #### [facility] [address] [place] [address] Special Librarian: Lakhwinder Tim MD Glucose [Mass/Vol] 86 mg/dL Normal 70-99 [facility] Comment on above: Performed By: #### C P, LIP, CDP #### [facility] [address] [place] [address] Special Librarian: Lakhwinder Tim MD Potassium [Moles/Vol] 3.8 mmol/L Normal 3.7-5.3 [facility] Comment on above: Performed By: #### C P, LIP, CDP #### [facility] [address] [place], [place] 0248583 Special Librarian: Lakhwinder Tim MD Protein [Mass/Vol] 7.8 g/dL Normal 6.4-8.3 [facility] Comment on above: Performed By: #### C P, LIP, CDP #### [facility] [address] [place], [place] 5734983 Special Librarian: Lakhwinder Tim MD Sodium [Moles/Vol] 138 mmol/L Normal 135-144 [facility] Comment on above: Performed By: #### C P, LIP, CDP #### [address] [place] [address] Special Librarian: Lakhwinder Tim MD Urea nitrogen [Mass/Vol] 12 mg/dL Normal 6-20 [facility] Comment on above: Performed By: #### C P, LIP, CDP #### [facility] [address] [place] [address] Special Librarian: Lakhwinder Tim MD Comprehensive Metabolic Pane [facility] 02-03-2024 Albumin [Mass/Vol] 4.1 g/dL 3.5 - 5.2 g/dL [facility] Albumin/Globulin [Mass ratio] 1.1 {ratio} 1.0 - 2.5 [facility] ALP [Catalytic activity/Vol] 64 U/L 35 - 104 U/L [facility] ALT [Catalytic activity/Vol] 7 U/L 5 - 33 U/L [facility] Anion gap [Moles/Vol] 11 mmol/L 9 - 17 mmol/L [facility] AST [Catalytic activity/Vol] 12 U/L NINF - 32 U/L [facility] Bilirubin [Mass/Vol] 0.2 mg/dL Low 0.3 - 1 .2 mg/dL [facility] Calcium [Mass/Vol] 8.9 mg/dL 8.6 - 10. 4 mg/dL [facility] Chloride [Moles/Vol] 99 mmol/L 98 - 10 7 mmol/L [facility] CO2 [Moles/Vol] 28 mmol/L 20 - 31 mmol/L [facility] Creatinine [Mass/Vol] 0.6 mg/dL 0.5 - 0.9 mg/dL [facility] Est, Glojanessa Carnest Rate - [facility] Comment on above: These results are not [...] 86 mg/dL 70 - 99 mg/dL [facility] Interpretation and review of laboratory results Abnormal [facility] Potassium [Moles/Vol] 3.8 mmol/L 3.7 - 5.3 mmol/L [facility] Protein [Mass/Vol] 7.8 g/dL 6.4 - 8.3 g/dL [facility] Sodium [Moles/Vol] 138 mmol/L 135 - 144 mmol/L [facility] Urea nitrogen [Mass/Vol] 12 mg/dL 6 - 20 mg/dL [facility] Urea nitrogen/Creatinine [Mass ratio] 20 mg/mg 9 - 20 [facility] HCG, ,Urineon 02-02 Beta HCG ( test) Ql (U) Negative Normal [facility] Comment on above: Result Comment: Spec imens with hCG levels near the threshold of the test (25 mIU/mL) may give a negative or indeterminate result. In such cases, another test should be performed with a new specimen in 48-72 hours. If early is suspected clinically in this setting, correlation with quantitative serum b-hCG level is suggested. [facility] [place] has confirmed the use of plasma for this test. This has not been cleared or approved by the U.S. Food and Drug Administration. The FDA has determined that such clearance is not necessary. Performed By: #### C PTOM, CDP #### [facility] [address] [place] [address] Special Librarian: Lakhwinder Tim MD Lactic Acidon 02-03-2024 Lactate (BldV) [Moles/Vol] 1.0 mmol/L 0.5 - 2.2 mmol/L [facility] Lactate [Moles/Vol] 1.0 mmol/L Normal 0.5-2.2 [facility] Comment on above: Performed By: #### L ACTIC #### [facility] [address] [place] [address] Special Librarian: Lakhwinder Tim MD Lipaseon 02-03-2024 Lipase [Catalytic activity/Vol] 29 U/L 13 - 60 U/L [facility] Lipase [Catalytic activity/Vol] 29 U/L Normal 13-60 [facility] Comment on above: Performed By: #### TOM Donahue, CDP #### [facility] [address] [place] [address] Special Librarian: Lakhwinder Tim MD No Panel Informationon 02-02 [facility] , Urineon HCG ( test) Ql (U) Negative NEGATIVE [facility] Comment on above: Specimens with hCG l evels near the threshold of the test (25 mIU/mL) may give a negative or indeterminate result. In such cases, another test should be performed with a new specimen in 48-72 hours. If early is suspected clinically in this setting, correlation with quantitative serum b-hCG level is suggested. [facility] [place] has confirmed the use of plasma for this test. This has not been cleared or approved by the U.S. Food and Drug Administration. The FDA has determined that such clearance is not necessary. [facility] Urinalysis w/ Microon 2023 Bacteria TRACE Abnormal NONE [facility] Comment on above: Performed By: #### C P, LIP, CDP #### [facility] [address] [place] [address] Dr[address] [place], [place] 5571783 Special Librarian: Lakhwinder Tim MD Bilirubin, SemiQt,Ur Negative Normal NEG [facility] Comment on above: Performed By: #### C P, LIP, CDP #### [address] [place], [place] 9828383 Special Librarian: Lakhwinder Tim MD Blood, Urine Negative Normal NEG [facility] Comment on above: Performed By: #### C P, LIP, CDP #### [address] [place], [place] 4010583 Special Librarian: Lakhwinder Tim MD Clarity (U) Clear Normal CLEAR [facility] Comment on above: Performed By: #### C P, LIP, CDP #### [address] [place], [place] 1956383 Special Librarian: Lakhwinder Tim MD Color (U) Yellow Normal YEL [facility] Comment on above: Performed By: #### C P, LIP, CDP #### [address] [place], [place] 7623883 Special Librarian: Lakhwinder Tim MD Epithelial cells LM Ql (Urine sed) 2 TO 5 Normal 0-25 [facility] Comment on above: Performed By: #### C P, LIP, CDP #### [address] [place], [place] 5534383 Special Librarian: Lakhwinder Tim MD Glucose Ql (U) Negative Normal NEG [facility] Comment on above: Performed By: #### C P, LIP, CDP #### [address] [place], [place] 9481983 Special Librarian: Lakhwinder iTm MD Ketones Ql (U) Negative Normal NEG [facility] Comment on above: Performed By: #### C P, LIP, CDP #### [address] [place], [place] 4281783 Special Librarian: Lakhwinder Tim MD Leukocyte esterase Test strip Ql (U) Negative Normal NEG [facility] Comment on above: Performed By: #### C P, LIP, CDP #### [address] [place], [place] 6985583 Special Librarian: Lakhwinder Tim MD Mucus Strands 2+ Abnormal NONE [facility] Comment on above: Performed By: #### C P, LIP, CDP #### [address] [place], [place] 7953983 Special Librarian: Lakhwinder Tim MD Nitrite,Ur Negative Normal NEG [facility] Comment on above: Performed By: #### C P, LIP, CDP #### [address] [place] [address] Special Librarian: Lakhwinder Tim MD PH,Ur 6.0 Normal 5.0-9.0 [facility] Comment on above: Performed By: #### C P, LIP, CDP #### [address] [place], [place] 9896483 Special Librarian: Lakhwinder Tim MD Protein Ql (U) Negative Normal NEG [facility] Comment on above: Performed By: #### C P, LIP, CDP #### [address] [place], [place] 1546683 Special Librarian: Lakhwinder Tim MD Spec. [place],Ur >1.030 High 1.010-1.020 [facility] Comment on above: Performed By: #### C P, LIP, CDP #### [facility] [address] [place] [address] Special Librarian: Lakhwinder Tim MD Urine RBC's 0 TO 2 Normal 0-2 [facility] Comment on above: Performed By: #### C P, LIP, CDP #### [facility] [address] [place], [place] 5869883 Special Librarian: Lakhwinder Tim MD Urine WBC's 0 TO 2 Normal 0-5 [facility] Comment on above: Performed By: #### C P, LIP, CDP #### [facility] [address] [place] [address] Special Librarian: Lakhwinder Tim MD Urobilinogen,Ur Normal Normal 0.0-1.0 [facility] Comment on above: Performed By: #### C P, LIP, CDP #### [facility] [address] [place], [place] 0031583 Special Librarian: Lakhwinder Tim MD Urinalysis with Microscopico n 02-03-2024 Bacteria LM Ql (Urine sed) TRACE Abnormal None [facility] Bilirubin Ql (U) Negative NEGATIVE [facility] Clarity (U) Clear Clear [facility] Color (U) Yellow Yellow [facility] Epithelial cells LM.HPF (Urine sed) [#/Area] 2 TO 5 [facility] Glucose Test strip (U) [Mass/Vol] Negative NEGATIVE mg/dL [facility] Hemoglobin Auto test strip Ql (U) Negative NEGATIVE [facility] Interpretation and review of laboratory results Abnormal [facility] Ketones (U) [Mass/Vol] Negative NEGATIVE mg/dL [facility] Leukocyte esterase Test strip Ql (U) Negative NEGATIVE [facility] Mucus Ql (Urine sed) 2+ Abnormal None [facility] Nitrite Ql (U) Negative NEGATIVE [facility] pH (U) 6.0 [pH] 5.0 - 9.0 [facility] Protein (U) [Mass/Vol] Negative NEGATIVE mg/dL [facility] RBC LM.HPF (Urine sed) [#/Area] 0 TO 2 [facility] Specific gravity (U) [Rel density] High 1.010 - 1.020 [facility] Urobilinogen Qn (U) Normal 0.0 - 1. 0 EU/dL [facility] WBC LM.HPF (Urine sed) [#/Area] 0 TO 2 [facility] CBC AND AUTO DIFFon 01-17-20 ABSOLUTE BASOPHIL 0.0 X10E9/L Normal 0.0-0.2 [facility] Comment on above: Performed By: #### 2 823-3 #### [facility] ([id number]) [address] [place] [address] ABSOLUTE NEUTROPHIL 7.1 X10E9/L High 1.5-6.6 [facility] Comment on above: Performed By: #### 2 823-3 #### [facility] ([id number]) [address], [address] [place] [address] Basophils/100 WBC (Bld) 0.2 % Normal [facility] Comment on above: Performed By: #### 2 823-3 #### [facility] ([id number]) [address], [address] [place] [address] Eosinophils (Bld) [#/Vol] 0.1 10*3/uL Normal 0.0-0.4 [facility] Comment on above: Performed By: #### 2 823-3 #### [facility] ([id number]) [address] [place] [address] Eosinophils/100 WBC (Bld) 1.4 % Normal [facility] Comment on above: Performed By: #### 2 823-3 #### [facility] ([id number]) [address] [place] [address] Erythrocyte distribution width (RBC) [Ratio] 15.3 % High 11.5-15.0 [facility] Comment on above: Performed By: #### 2 823-3 #### [facility] ([id number]) [address] [place] [address] Hematocrit (Bld) [Volume fraction] 30.6 % Low 35-47 [facility] Comment on above: Performed By: #### 2 823-3 #### [facility] ([id number]) [address] [place] [address] Hemoglobin (Bld) [Mass/Vol] 10.1 g/dL Low 11.7-15.5 [facility] Comment on above: Performed By: #### 2 823-3 #### [facility] ([id number]) [address] [place] [address] Lymphocytes (Bld) [#/Vol] 1.8 10*3/uL Normal 1.0-3.5 [facility] Comment on above: Performed By: #### 2 823-3 #### [facility] ([id number]) [address] [place] [address] Lymphocytes/100 WBC (Bld) 18.1 % Normal [facility] Comment on above: Performed By: #### 2 823-3 #### [facility] ([id number]) [address] [place] [address] MCH (RBC) [Entitic mass] 27.7 pg Normal 27-34 [facility] Comment on above: Performed By: #### 2 823-3 #### [facility] ([id number]) [address] [place] [address] MCHC (RBC) [Mass/Vol] 32.9 g/dL Normal 32-36 [facility] Comment on above: Performed By: #### 2 823-3 #### [facility] ([id number]) [address] [place] [address] MCV (RBC) [Entitic vol] 84 fL Normal 80-100 [facility] Comment on above: Performed By: #### 2 823-3 #### [facility] ([id number]) [address] [place] [address] Monocytes (Bld) [#/Vol] 1.0 10*3/uL High 0-0.9 [facility] Comment on above: Performed By: #### 2 823-3 #### [facility] ([id number]) [address] [place] [address] Monocytes/100 WBC (Bld) 9.6 % Normal [facility] Comment on above: Performed By: #### 2 823-3 #### [facility] ([id number]) [address] [place] [address] Neutrophils/100 WBC (Bld) 70.7 % Normal [facility] Comment on above: Performed By: #### 2 823-3 #### [facility] ([id number]) [address] [place] [address] Platelet mean volume (Bld) [Entitic vol] 7.8 fL Normal 7-12 [facility] Comment on above: Performed By: #### 2 823-3 #### [facility] ([id number]) [address] [place] [address] Platelets (Bld) [#/Vol] 404 10*3/uL Normal 150-450 [facility] Comment on above: Performed By: #### 2 823-3 #### [facility] ([id number]) [address] [place] [address] RBC COUNT 3.64 X10E12/L Low 3.80-5.20 [facility] Comment on above: Performed By: #### 2 823-3 #### [facility] ([id number]) [address] [place] [address] WBC (Bld) [#/Vol] 10.1 10*3/uL Normal 4.0-11.0 [facility] Comment on above: Performed By: #### 2 823-3 #### [facility] ([id number]) [address] [place] [address] COMPREHENSIVE METABOLIC PANE [facility] 01-17-2024 Albumin [Mass/Vol] 3.0 g/dL Low 3.2-5.3 [facility] Comment on above: Performed By: #### 2 823-3 #### [facility] ([id number]) [address] [place] [address] ALP [Catalytic activity/Vol] 76 U/L Normal 39-130 [facility] Comment on above: Performed By: #### 2 823-3 #### [facility] ([id number]) [address] [place] [address] ALT [Catalytic activity/Vol] 10 U/L Normal 0-31 [facility] Comment on above: Performed By: #### 2 823-3 #### [facility] ([id number]) [address] [place] [address] Anion gap [Moles/Vol] 9 mmol/L Normal 5-15 [facility] Comment on above: Performed By: #### 2 823-3 #### [facility] ([id number]) [address] [place] [address] AST [Catalytic activity/Vol] 10 U/L Normal 0-41 [facility] Comment on above: Performed By: #### 2 823-3 #### [facility] ([id number]) [address] [place] [address] Bilirubin [Mass/Vol] 0.2 mg/dL Low 0.3-1.2 [facility] Comment on above: Performed By: #### 2 823-3 #### [facility] ([id number]) [address], [facility] [address] [place] [address] Calcium [Mass/Vol] 8.6 mg/dL Normal 8.5-10.5 [facility] Comment on above: Performed By: #### 2 823-3 #### [facility] ([id number]) [address] [address] [place] [address] Chloride [Moles/Vol] 99 mmol/L Normal 98-109 [facility] Comment on above: Performed By: #### 2 823-3 #### [facility] ([id number]) [address], [facility] [address] [place] [address] CO2 [Moles/Vol] 28 mmol/L Normal 22-32 [facility] Comment on above: Performed By: #### 2 823-3 #### [facility] ([id number]) [address], [facility] [address] [place] [address] Creatinine [Mass/Vol] 0.44 mg/dL Normal 0.40-1.00 [facility] Comment on above: Result Comment: METH OD TRACEABLE TO IDMS STANDARD Performed By: #### 2 823-3 #### [facility] ([id number]) [address], [facility] [address] [place] [address] eGFR (CKD-EPI) NON-RACE DEPENDENT >90 Normal >59 [facility] Comment on above: Result Comment: Reported eGFR is based on the CKD-EPI 2020 equation that does not use a race coefficient. Performed By: #### 2 823-3 #### [facility] ([id number]) [address] [place] [address] Glucose [Mass/Vol] 87 mg/dL Normal 65-99 [facility] Comment on above: Performed By: #### 2 823-3 #### [facility] ([id number]) [address] [place] [address] Potassium [Moles/Vol] 3.9 mmol/L Normal 3.5-5.0 [facility] Comment on above: Performed By: #### 2 823-3 #### [facility] ([id number]) [address] [place] [address] Protein [Mass/Vol] 6.3 g/dL Normal 6.0-8.0 [facility] Comment on above: Performed By: #### 2 823-3 #### [facility] ([id number]) [address] [place] [address] Sodium [Moles/Vol] 136 mmol/L Normal 134-146 [facility] Comment on above: Performed By: #### 2 823-3 #### [facility] ([id number]) [address] [place] [address] Urea nitrogen [Mass/Vol] 5 mg/dL Normal 5-23 [facility] Comment on above: Performed By: #### 2 823-3 #### [facility] ([id number]) [address] [place] [address] CBC AND AUTO DIFFon 07-30-20 24 ABSOLUTE BASOPHIL 0.0 X10E9/L Normal 0.0-0.2 [facility] Comment on above: Performed By: #### 2 823-3 #### [facility] ([id number]) [address] [place] [address] ABSOLUTE NEUTROPHIL 8.2 X10E9/L High 1.5-6.6 [facility] Comment on above: Performed By: #### 2 823-3 #### [facility] ([id number]) [address] [place] [address] Basophils/100 WBC (Bld) 0.2 % Normal [facility] Comment on above: Performed By: #### 2 823-3 #### [facility] ([id number]) [address], [address] [place] [address] Eosinophils (Bld) [#/Vol] 0.0 10*3/uL Normal 0.0-0.4 [facility] Comment on above: Performed By: #### 2 823-3 #### [facility] ([id number]) [address], [address] [place] [address] Eosinophils/100 WBC (Bld) 0.1 % Normal [facility] Comment on above: Performed By: #### 2 823-3 #### [facility] ([id number]) [address], [address] [place] [address] Erythrocyte distribution width (RBC) [Ratio] 15.3 % High 11.5-15.0 [facility] Comment on above: Performed By: #### 2 823-3 #### [facility] ([id number]) [address], [address] [place] [address] Hematocrit (Bld) [Volume fraction] 31.5 % Low 35-47 [facility] Comment on above: Performed By: #### 2 823-3 #### [facility] ([id number]) [address], [address] [place] [address] Hemoglobin (Bld) [Mass/Vol] 10.5 g/dL Low 11.7-15.5 [facility] Comment on above: Performed By: #### 2 823-3 #### [facility] ([id number]) [address], [address] [place] [address] Lymphocytes (Bld) [#/Vol] 1.2 10*3/uL Normal 1.0-3.5 [facility] Comment on above: Performed By: #### 2 823-3 #### [facility] ([id number]) [address], [address] [place] [address] Lymphocytes/100 WBC (Bld) 12.0 % Normal [facility] Comment on above: Performed By: #### 2 823-3 #### [facility] ([id number]) [address], [address] [place] [address] MCH (RBC) [Entitic mass] 28.0 pg Normal 27-34 [facility] Comment on above: Performed By: #### 2 823-3 #### [facility] ([id number]) [address], [address] [place] [address] MCHC (RBC) [Mass/Vol] 33.3 g/dL Normal 32-36 [facility] Comment on above: Performed By: #### 2 823-3 #### [facility] ([id number]) [address], [address] [place] [address] MCV (RBC) [Entitic vol] 84 fL Normal 80-100 [facility] Comment on above: Performed By: #### 2 823-3 #### [facility] ([id number]) [address], [address] [place] [address] Monocytes (Bld) [#/Vol] 0.7 10*3/uL Normal 0-0.9 [facility] Comment on above: Performed By: #### 2 823-3 #### [facility] ([id number]) [address], [address] [place] [address] Monocytes/100 WBC (Bld) 6.5 % Normal [facility] Comment on above: Performed By: #### 2 823-3 #### [facility] ([id number]) [address], [address] [place] [address] Neutrophils/100 WBC (Bld) 81.2 % Normal [facility] Comment on above: Performed By: #### 2 823-3 #### [facility] ([id number]) [address] [place] [address] Platelet mean volume (Bld) [Entitic vol] 8.8 fL Normal 7-12 [facility] Comment on above: Performed By: #### 2 823-3 #### [facility] ([id number]) [address] [place] [address] Platelets (Bld) [#/Vol] 341 10*3/uL Normal 150-450 [facility] Comment on above: Performed By: #### 2 823-3 #### [facility] ([id number]) [address] [place] [address] RBC COUNT 3.75 X10E12/L Low 3.80-5.20 [facility] Comment on above: Performed By: #### 2 823-3 #### [facility] ([id number]) [address] [place] [address] WBC (Bld) [#/Vol] 10.1 10*3/uL Normal 4.0-11.0 [facility] Comment on above: Performed By: #### 2 823-3 #### [facility] ([id number]) [address], [address] [place] [address] COMPREHENSIVE METABOLIC PANE Blaine 01-16-2024 Albumin [Mass/Vol] 3.2 g/dL Normal 3.2-5.3 [facility] Comment on above: Performed By: #### 2 823-3 #### [facility] ([id number]) [address], [address] [place] [address] ALP [Catalytic activity/Vol] 95 U/L Normal 39-130 [facility] Comment on above: Performed By: #### 2 823-3 #### [facility] ([id number]) [address], [address] [place] [address] ALT [Catalytic activity/Vol] 12 U/L Normal 0-31 [facility] Comment on above: Performed By: #### 2 823-3 #### [facility] ([id number]) [address], [address] [place] [address] Anion gap [Moles/Vol] 14 mmol/L Normal 5-15 [facility] Comment on above: Performed By: #### 2 823-3 #### [facility] ([id number]) [address] [place] [address] AST [Catalytic activity/Vol] 9 U/L Normal 0-41 [facility] Comment on above: Performed By: #### 2 823-3 #### [facility] ([id number]) [address] [place] [address] Bilirubin [Mass/Vol] 0.3 mg/dL Normal 0.3-1.2 [facility] Comment on above: Performed By: #### 2 823-3 #### [facility] ([id number]) [address] [place] [address] Calcium [Mass/Vol] 8.9 mg/dL Normal 8.5-10.5 [facility] Comment on above: Performed By: #### 2 823-3 #### [facility] ([id number]) [address] [place] [address] Chloride [Moles/Vol] 98 mmol/L Normal 98-109 [facility] Comment on above: Performed By: #### 2 823-3 #### [facility] ([id number]) [address] [place] [address] CO2 [Moles/Vol] 24 mmol/L Normal 22-32 [facility] Comment on above: Performed By: #### 2 823-3 #### [facility] ([id number]) [address] [place] [address] Creatinine [Mass/Vol] 0.35 mg/dL Low 0.40-1.00 [facility] Comment on above: Result Comment: METH OD TRACEABLE TO IDMS STANDARD Performed By: #### 2 823-3 #### [facility] ([id number]) [address], [address] [place] [address] eGFR (CKD-EPI) NON-RACE DEPENDENT >90 Normal >59 [facility] Comment on above: Result Comment: Reported eGFR is based on the CKD-EPI 2020 equation that does not use a race coefficient. Performed By: #### 2 823-3 #### [facility] ([id number]) [address] [place] [address] Glucose [Mass/Vol] 82 mg/dL Normal 65-99 [facility] Comment on above: Performed By: #### 2 823-3 #### [facility] ([id number]) [address], [address] [place] [address] Potassium [Moles/Vol] 3.7 mmol/L Normal 3.5-5.0 [facility] Comment on above: Performed By: #### 2 823-3 #### [facility] ([id number]) [address], [address] [place] [address] Protein [Mass/Vol] 7.0 g/dL Normal 6.0-8.0 [facility] Comment on above: Performed By: #### 2 823-3 #### [facility] ([id number]) [address], [address] [place] [address] Sodium [Moles/Vol] 136 mmol/L Normal 134-146 [facility] Comment on above: Performed By: #### 2 823-3 #### [facility] ([id number]) [address], [address] [place] [address] Urea nitrogen [Mass/Vol] 5 mg/dL Normal 5-23 [facility] Comment on above: Performed By: #### 2 823-3 #### [facility] ([id number]) [address] [place] [address] MAGNESIUMon 01-16-2024 Magnesium [Mass/Vol] 1.8 mg/dL Normal 1.8-2.6 [facility] Comment on above: Performed By: #### 2 823-3 #### [facility] ([id number]) [address], [address] [place] [address] PHOSPHORUSon 01-16-2024 Phosphate [Mass/Vol] 3.3 mg/dL Normal 2.4-4.9 [facility] Comment on above: Performed By: #### 2 823-3 #### [facility] ([id number]) [address], [address] [place] [address] POTASSIUMon 01-16-2024 Potassium [Moles/Vol] 3.5 mmol/L Normal 3.5-5.0 [facility] Comment on above: Performed By: #### 2 823-3 #### [facility] ([id number]) [address], [address] [place] [address] Potassium [Moles/Vol] 3.8 mmol/L Normal 3.5-5.0 [facility] Comment on above: Performed By: #### C RT #### [facility] ([id number]) [address], [address] [place] [address] ANAEROBE CULTUREon 4 Bacteria identified Anaer cx Nom (Unsp spec) CULTURE RESULTS NO GROWTH 5 DAYS Normal [facility] Comment on above: Performed By: #### 2 823-3 #### [facility] ([id number]) [address], [address] [place] [address] ASPIRATE CULTUREon 4 Bacteria identified Aer cx Nom (Asp) GRAM STAIN 10 to 24 WHITE BLOOD CELLS/LPF 0 to 1 SQUAMOUS EPITHELIAL CELLS/LPF NO ORGANISMS SEEN CULTURE RESULTS NO GROWTH 5 DAYS Normal [facility] Comment on above: Performed By: #### C RT #### [facility] ([id number]) [address] [place] [address] CBC AND AUTO DIFFon 01-15-20 24 ABSOLUTE BASOPHIL 0.0 X10E9/L Normal 0.0-0.2 [facility] Comment on above: Performed By: #### C RT #### [facility] ([id number]) [address], [address] [place] [address] ABSOLUTE NEUTROPHIL 8.6 X10E9/L High 1.5-6.6 [facility] Comment on above: Performed By: #### C RT #### [facility] ([id number]) [address] [place] [address] Basophils/100 WBC (Bld) 0.2 % Normal [facility] Comment on above: Performed By: #### C RT #### [facility] ([id number]) [address], [address] [place] [address] Eosinophils (Bld) [#/Vol] 0.1 10*3/uL Normal 0.0-0.4 [facility] Comment on above: Performed By: #### C RT #### [facility] ([id number]) [address] [address] [place] [address] Eosinophils/100 WBC (Bld) 0.9 % Normal [facility] Comment on above: Performed By: #### C RT #### [facility] ([id number]) [address], [address] [place] [address] Erythrocyte distribution width (RBC) [Ratio] 14.9 % Normal 11.5-15.0 [facility] Comment on above: Performed By: #### C RT #### [facility] ([id number]) [address] [place] [address] Hematocrit (Bld) [Volume fraction] 27.7 % Low 35-47 [facility] Comment on above: Performed By: #### C RT #### [facility] ([id number]) [address], [address] [place] [address] Hemoglobin (Bld) [Mass/Vol] 9.1 g/dL Low 11.7-15.5 [facility] Comment on above: Performed By: #### C RT #### [facility] ([id number]) [address], [address] [place] [address] Lymphocytes (Bld) [#/Vol] 1.3 10*3/uL Normal 1.0-3.5 [facility] Comment on above: Performed By: #### C RT #### [facility] ([id number]) [address] [place] [address] Lymphocytes/100 WBC (Bld) 11.2 % Normal [facility] Comment on above: Performed By: #### C RT #### [facility] ([id number]) [address] [place] [address] MCH (RBC) [Entitic mass] 27.3 pg Normal 27-34 [facility] Comment on above: Performed By: #### C RT #### [facility] ([id number]) [address] [place] [address] MCHC (RBC) [Mass/Vol] 32.7 g/dL Normal 32-36 [facility] Comment on above: Performed By: #### C RT #### [facility] ([id number]) [address] [place] [address] MCV (RBC) [Entitic vol] 83 fL Normal 80-100 [facility] Comment on above: Performed By: #### C RT #### [facility] ([id number]) [address] [place] [address] Monocytes (Bld) [#/Vol] 1.2 10*3/uL High 0-0.9 [facility] Comment on above: Performed By: #### C RT #### [facility] ([id number]) [address] [place] [address] Monocytes/100 WBC (Bld) 10.5 % Normal [facility] Comment on above: Performed By: #### C RT #### [facility] ([id number]) [address] [place] [address] Neutrophils/100 WBC (Bld) 77.2 % Normal [facility] Comment on above: Performed By: #### C RT #### [facility] ([id number]) [address] [place] [address] Platelet mean volume (Bld) [Entitic vol] 8.4 fL Normal 7-12 [facility] Comment on above: Performed By: #### C RT #### [facility] ([id number]) [address] [place] [address] Platelets (Bld) [#/Vol] 251 10*3/uL Normal 150-450 [facility] Comment on above: Performed By: #### C RT #### [facility] ([id number]) [address], [address] [place] [address] RBC COUNT 3.32 X10E12/L Low 3.80-5.20 [facility] Comment on above: Performed By: #### C RT #### [facility] ([id number]) [address], [address] [place] [address] WBC (Bld) [#/Vol] 11.2 10*3/uL High 4.0-11.0 [facility] Comment on above: Performed By: #### C RT #### [facility] ([id number]) [address], [address] [place] [address] COMPREHENSIVE METABOLIC PANE Blaine 01-15-2024 Albumin [Mass/Vol] 3.0 g/dL Low 3.2-5.3 [facility] Comment on above: Performed By: #### C RT #### [facility] ([id number]) [address] [place] [address] ALP [Catalytic activity/Vol] 97 U/L Normal 39-130 [facility] Comment on above: Performed By: #### C RT #### [facility] ([id number]) [address], [address] [place] [address] ALT [Catalytic activity/Vol] 14 U/L Normal 0-31 [facility] Comment on above: Performed By: #### C RT #### [facility] ([id number]) [address] [place] [address] Anion gap [Moles/Vol] 10 mmol/L Normal 5-15 [facility] Comment on above: Performed By: #### C RT #### [facility] ([id number]) [address] [place] [address] AST [Catalytic activity/Vol] 13 U/L Normal 0-41 [facility] Comment on above: Performed By: #### C RT #### [facility] ([id number]) [address] [place] [address] Bilirubin [Mass/Vol] 0.7 mg/dL Normal 0.3-1.2 [facility] Comment on above: Performed By: #### C RT #### [facility] ([id number]) [address] [place] [address] Calcium [Mass/Vol] 8.4 mg/dL Low 8.5-10.5 [facility] Comment on above: Performed By: #### C RT #### [facility] ([id number]) [address] [place] [address] Chloride [Moles/Vol] 101 mmol/L Normal 98-109 [facility] Comment on above: Performed By: #### C RT #### [facility] ([id number]) [address] [place] [address] CO2 [Moles/Vol] 28 mmol/L Normal 22-32 [facility] Comment on above: Performed By: #### C RT #### [facility] ([id number]) [address] [place] [address] Creatinine [Mass/Vol] 0.41 mg/dL Normal 0.40-1.00 [facility] Comment on above: Result Comment: METH OD TRACEABLE TO IDMS STANDARD Performed By: #### C RT #### [facility] ([id number]) [address] [place] [address] eGFR (CKD-EPI) NON-RACE DEPENDENT >90 Normal >59 [facility] Comment on above: Result Comment: Reported eGFR is based on the CKD-EPI 1 equation that does not use a race coefficient. Performed By: #### C RT #### [facility] ([id number]) [address] [place] [address] Glucose [Mass/Vol] 85 mg/dL Normal 65-99 [facility] Comment on above: Performed By: #### C RT #### [facility] ([id number]) [address] [place] [address] Potassium [Moles/Vol] 3.4 mmol/L Low 3.5-5.0 [facility] Comment on above: Performed By: #### C RT #### [facility] ([id number]) [address] [place] [address] Protein [Mass/Vol] 6.0 g/dL Normal 6.0-8.0 [facility] Comment on above: Performed By: #### C RT #### [facility] ([id number]) [address] [place] [address] Sodium [Moles/Vol] 139 mmol/L Normal 134-146 [facility] Comment on above: Performed By: #### C RT #### [facility] ([id number]) [address] [place] [address] Urea nitrogen [Mass/Vol] 2 mg/dL Low 5-23 [facility] Comment on above: Performed By: #### C RT #### [facility] ([id number]) [address] [place] [address] Fibrinogen Coagulation.deriv ed (PPP) [Mass/Vol]on 01-15-2024 FIBRINOGEN 647 mg/dL High 190-480 [facility] Comment on above: Performed By: #### C RT #### [facility] ([id number]) [address] [place] [address] POTASSIUMon 01-15-2024 Potassium [Moles/Vol] 3.5 mmol/L Normal 3.5-5.0 [facility] Comment on above: Performed By: #### C RT #### [facility] ([id number]) [address] [place] [address] PROTIME AND INRon 01-15-2024 INR Coag (PPP) [Relative time] 1.6 {INR} High 0.8-1.1 [facility] Comment on above: Performed By: #### C RT #### [facility] ([id number]) [address] [place] [address] PT Coag (PPP) [Time] 17.8 s High 9.8-13.2 [facility] Comment on above: Performed By: #### C RT #### [facility] ([id number]) [address] [place] [address] aPTT Coag (PPP) [Time]on aPTT Coag (Bld) [Time] 31 s Normal 26-37 [facility] Comment on above: Performed By: #### C RT #### [facility] ([id number]) [address] [place] [address] BLOOD CULTUREon 01-14-2024 Bacteria identified Aer cx Nom (Bld) SPECIMEN NOTES SUBOPTIMAL VOLUME OF BLOOD COLLECTED, RESULTS MAY BE AFFECTED. CULTURE RESULTS NO GROWTH 5 DAYS Normal [facility] Comment on above: Performed By: #### 1 7928-3 #### [facility] ([id number]) [address] [place] [address] Bacteria identified Aer cx Nom (Bld) SPECIMEN NOTES SUBOPTIMAL VOLUME OF BLOOD COLLECTED, RESULTS MAY BE AFFECTED. CULTURE RESULTS NO GROWTH 5 DAYS Normal [facility] Comment on above: Performed By: #### C RT #### [facility] ([id number]) [address] [place] [address] CBC AND AUTO DIFFon 01-14-20 24 ABSOLUTE BASOPHIL 0.0 X10E9/L Normal 0.0-0.2 [facility] Comment on above: Performed By: #### C BCA, 46129-9, PINR, 11522-4, CMP #### [facility] ([id number]) [address] [place] [address] ABSOLUTE NEUTROPHIL 8.2 X10E9/L High 1.5-6.6 [facility] Comment on above: Performed By: #### C BCA, 13981-3, PINR, 75770-3, CMP #### [facility] ([id number]) [address] [place] [address] Basophils/100 WBC (Bld) 0.2 % Normal [facility] Comment on above: Performed By: #### C BCA, 44588-8, PINR, 05393-1, CMP #### [facility] ([id number]) [address] [place] [address] Eosinophils (Bld) [#/Vol] 0.1 10*3/uL Normal 0.0-0.4 [facility] Comment on above: Performed By: #### C BCA, 68488-2, PINR, 80659-8, CMP #### [facility] ([id number]) [address] [place] [address] Eosinophils/100 WBC (Bld) 0.9 % Normal [facility] Comment on above: Performed By: #### Chantal BCA, 46500-2, PINR, 00984-6, CMP #### [facility] ([id number]) [address], [facility] [address] [place] [address] Erythrocyte distribution width (RBC) [Ratio] 15.2 % High 11.5-15.0 [facility] Comment on above: Performed By: #### C BCA, 84337-2, PINR, 65339-9, CMP #### [facility] ([id number]) [address] [place] [address] Hematocrit (Bld) [Volume fraction] 31.0 % Low 35-47 [facility] Comment on above: Performed By: #### C BCA, 75606-7, PINR, 60866-2, CMP #### [facility] ([id number]) [address] [place] [address] Hemoglobin (Bld) [Mass/Vol] 10.3 g/dL Low 11.7-15.5 [facility] Comment on above: Performed By: #### C BCA, 96466-9, PINR, 24594-1, CMP #### [facility] ([id number]) [address] [place] [address] Lymphocytes (Bld) [#/Vol] 1.3 10*3/uL Normal 1.0-3.5 [facility] Comment on above: Performed By: #### C BCA, 83299-5, PINR, 79295-3, CMP #### [facility] ([id number]) [address] [facility] [address] [place] [address] Lymphocytes/100 WBC (Bld) 12.6 % Normal [facility] Comment on above: Performed By: #### Chantal BCA, 75153-7, PINR, 20674-8, CMP #### [facility] ([id number]) [address] [place] [address] MCH (RBC) [Entitic mass] 27.9 pg Normal 27-34 [facility] Comment on above: Performed By: #### C BCA, 68473-8, PINR, 15366-2, CMP #### [facility] ([id number]) [address], [address] [place] [address] MCHC (RBC) [Mass/Vol] 33.2 g/dL Normal 32-36 [facility] Comment on above: Performed By: #### C BCA, 61197-7, PINR, 90207-3, CMP #### [facility] ([id number]) [address], [address] [place] [address] MCV (RBC) [Entitic vol] 84 fL Normal 80-100 [facility] Comment on above: Performed By: #### Chantal BCA, 56405-5, PINR, 09535-3, CMP #### [facility] ([id number]) [address], [address] [place] [address] Monocytes (Bld) [#/Vol] 0.9 10*3/uL Normal 0-0.9 [facility] Comment on above: Performed By: #### C BCA, 81967-3, PINR, 62374-2, CMP #### [facility] ([id number]) [address], [address] [place] [address] Monocytes/100 WBC (Bld) 8.9 % Normal [facility] Comment on above: Performed By: #### C BCA, 32824-6, PINR, 47265-0, CMP #### [facility] ([id number]) [address], [address] [place] [address] Neutrophils/100 WBC (Bld) 77.4 % Normal [facility] Comment on above: Performed By: #### C BCA, 63852-9, PINR, 40788-7, CMP #### [facility] ([id number]) [address], [address] [place] [address] Platelet mean volume (Bld) [Entitic vol] 8.3 fL Normal 7-12 [facility] Comment on above: Performed By: #### C BCA, 08620-4, PINR, 48648-1, CMP #### [facility] ([id number]) [address], [address] [place] [address] Platelets (Bld) [#/Vol] 250 10*3/uL Normal 150-450 [facility] Comment on above: Performed By: #### C BCA, 55569-8, PINR, 50980-4, CMP #### [facility] ([id number]) [address], [address] [place] [address] RBC COUNT 3.69 X10E12/L Low 3.80-5.20 [facility] Comment on above: Performed By: #### C BCA, 02496-7, PINR, 08252-9, CMP #### [facility] ([id number]) [address], [address] [place] [address] WBC (Bld) [#/Vol] 10.5 10*3/uL Normal 4.0-11.0 [facility] Comment on above: Performed By: #### C BCA, 72206-9, PINR, 98553-7, CMP #### [facility] ([id number]) [address], [address] [place] [address] COMPREHENSIVE METABOLIC PANE Blaine 01-14-2024 Albumin [Mass/Vol] 3.2 g/dL Normal 3.2-5.3 [facility] Comment on above: Performed By: #### C BCA, 88473-6, PINR, 05194-1, CMP #### [facility] ([id number]) [address], [address] [place] [address] ALP [Catalytic activity/Vol] 103 U/L Normal 39-130 [facility] Comment on above: Performed By: #### C BCA, 47666-9, PINR, 17039-5, CMP #### [facility] ([id number]) [address], [address] [place] [address] ALT [Catalytic activity/Vol] 25 U/L Normal 0-31 [facility] Comment on above: Performed By: #### C BCA, 22250-1, PINR, 71915-6, CMP #### [facility] ([id number]) [address], [address] [place] [address] Anion gap [Moles/Vol] 9 mmol/L Normal 5-15 [facility] Comment on above: Performed By: #### C BCA, 74600-4, PINR, 54987-3, CMP #### [facility] ([id number]) [address], [address] [place] [address] AST [Catalytic activity/Vol] 26 U/L Normal 0-41 [facility] Comment on above: Performed By: #### C BCA, 09257-2, PINR, 21531-3, CMP #### [facility] ([id number]) [address], [address] [place] [address] Bilirubin [Mass/Vol] 0.6 mg/dL Normal 0.3-1.2 [facility] Comment on above: Performed By: #### C BCA, 50137-3, PINR, 51858-5, CMP #### [facility] ([id number]) [address], [address] [place] [address] Calcium [Mass/Vol] 8.2 mg/dL Low 8.5-10.5 [facility] Comment on above: Performed By: #### C BCA, 02524-3, PINR, 58778-4, CMP #### [facility] ([id number]) [address], [address] [place] [address] Chloride [Moles/Vol] 102 mmol/L Normal 98-109 [facility] Comment on above: Performed By: #### C BCA, 49533-6, PINR, 54387-3, CMP #### [facility] ([id number]) [address], [address] [place] [address] CO2 [Moles/Vol] 28 mmol/L Normal 22-32 [facility] Comment on above: Performed By: #### C BCA, 44146-5, PINR, 06086-7, CMP #### [facility] ([id number]) [address], [address] [place] [address] Creatinine [Mass/Vol] 0.48 mg/dL Normal 0.40-1.00 [facility] Comment on above: Result Comment: METH OD TRACEABLE TO IDMS STANDARD Performed By: #### C BCA, 55279-4, PINR, 92189-8, CMP #### [facility] ([id number]) [address], [address] [place] [address] eGFR (CKD-EPI) NON-RACE DEPENDENT >90 Normal >59 [facility] Comment on above: Result Comment: Reported eGFR is based on the CKD-EPI 2020 equation that does not use a race coefficient. Performed By: #### C BCA, 79241-8, PINR, 48488-4, CMP #### [facility] ([id number]) [address], [address] [place] [address] Glucose [Mass/Vol] 92 mg/dL Normal 65-99 [facility] Comment on above: Performed By: #### C BCA, 31661-7, PINR, 44354-1, CMP #### [facility] ([id number]) [address], [address] [place] [address] Potassium [Moles/Vol] 3.2 mmol/L Low 3.5-5.0 [facility] Comment on above: Performed By: #### C BCA, 82330-2, PINR, 89651-1, CMP #### [facility] ([id number]) [address], [address] [place] [address] Protein [Mass/Vol] 6.6 g/dL Normal 6.0-8.0 [facility] Comment on above: Performed By: #### C BCA, 88548-1, PINR, 54389-4, CMP #### [facility] ([id number]) [address], [address] [place] [address] Sodium [Moles/Vol] 139 mmol/L Normal 134-146 [facility] Comment on above: Performed By: #### C BCA, 42884-4, PINR, 78939-2, CMP #### [facility] ([id number]) [address], [address] [place] [address] Urea nitrogen [Mass/Vol] 3 mg/dL Low 5-23 [facility] Comment on above: Performed By: #### C BCA, 43875-0, PINR, 32710-4, CMP #### [facility] ([id number]) [address], [address] [place] [address] Fibrinogen Coagulation.deriv ed (PPP) [Mass/Vol]on 01-14-2024 FIBRINOGEN 803 mg/dL High 190-480 [facility] Comment on above: Performed By: #### C BCA, 79861-6, PINR, 51870-5, CMP #### [facility] ([id number]) [address], [address] [place] [address] POTASSIUMon 01-14-2024 Potassium [Moles/Vol] 3.9 mmol/L Normal 3.5-5.0 [facility] Comment on above: Performed By: #### 2 823-3 #### [facility] ([id number]) [address], [address] [place] [address] PROTIME AND INRon 01-14-2024 INR Coag (PPP) [Relative time] 1.2 {INR} High 0.8-1.1 [facility] Comment on above: Performed By: #### C BCA, 14452-2, PINR, 51934-0, CMP #### [facility] ([id number]) [address], [address] [place] [address] PT Coag (PPP) [Time] 14.3 s High 9.8-13.2 [facility] Comment on above: Performed By: #### C BCA, 66092-4, PINR, 05947-0, CMP #### [facility] ([id number]) [address], [address] [place] [address] aPTT Coag (PPP) [Time]on aPTT Coag (Bld) [Time] 30 s Normal 26-37 [facility] Comment on above: Performed By: #### C BCA, 49195-3, PINR, 34165-3, CMP #### [facility] ([id number]) [address], [address] [place] [address] APTTon 01-13-2024 ACTIVATED PARTIAL THROMBOPLASTIN TIME IN PPP BY COAGULATION ASSAY 37.7 Seconds High 25.0-35.[address] [facility] Comment on above: Result Comment: Clin ical significance of the APTT is questionable in the presence of heparin. Performed By: #### L [id number] #### [facility] ([facility]) [address] [place] [address] BLOOD CULTUREon 01-13-2024 Bacteria identified Cx Nom (Bld) No growth at 5 days Normal [facility] Comment on above: Performed By: #### L [id number] #### [facility] ([facility]) [address] [place] [address] CBC WITH AUTO DIFFERENTIALon 01-13-2024 Basophils (Bld) [#/Vol] 0.03 10*3/uL Normal 0.00-0.[address] [facility] Comment on above: Performed By: #### L [id number] #### [facility] ([facility]) [address] [place] [address] Basophils/100 WBC (Bld) 0.2 % Normal 0.0-1.[address] [facility] Comment on above: Performed By: #### L [id number] #### [facility] ([facility]) [address] [place] [address] Eosinophils (Bld) [#/Vol] 0.05 10*3/uL Normal 0.00-0.[address] [facility] Comment on above: Performed By: #### L [id number] #### [facility] ([facility]) [address] [place] [address] Eosinophils/100 WBC (Bld) 0.4 % Normal 0.0-6.[address] [facility] Comment on above: Performed By: #### L [id number] #### [facility] ([facility]) [address] [place] [address] Erythrocyte distribution width (RBC) [Ratio] 14.0 % Normal 11.5-15.[address] [facility] Comment on above: Performed By: #### L [id number] #### [facility] ([facility]) [address] [place] [address] ERYTHROCYTE MEAN CORPUSCULAR HEMOGLOBIN CONCENTRATION (G/DL) BY AUTOMATED 32.9 g/dL Normal 32.0-35.[address] [facility] Comment on above: Performed By: #### L [id number] #### [facility] ([facility]) [address] [place] [address] Hematocrit (Bld) [Volume fraction] 32.8 % Low 36.0-48.[address] [facility] Comment on above: Performed By: #### L [id number] #### [facility] ([facility]) [address] [place] [address] Hemoglobin (Bld) [Mass/Vol] 10.8 g/dL Low 12.0-15.[address] [facility] Comment on above: Performed By: #### L [id number] #### [facility] ([facility]) [address] [place] [address] Immature granulocytes (Bld) [#/Vol] 0.05 10*3/uL Normal 0.00-0.[address] [facility] Comment on above: Performed By: #### L [id number] #### [facility] ([facility]) [address] [place] [address] Immature granulocytes/100 WBC (Bld) 0.4 % Normal 0.0-1.[address] [facility] Comment on above: Performed By: #### L [id number] #### [facility] ([facility]) [address] [place] [address] Lymphocytes (Bld) [#/Vol] 1.38 10*3/uL Normal 1.20-4.[address] [facility] Comment on above: Performed By: #### L [id number] #### [facility] ([facility]) [address] [place] [address] Lymphocytes/100 WBC (Bld) 10.9 % Low 20.0-45.[address] [facility] Comment on above: Performed By: #### L [id number] #### [facility] ([facility]) [address] [place] [address] MCH (RBC) [Entitic mass] 27.6 pg Normal 27.0-33.[address] [facility] Comment on above: Performed By: #### L [id number] #### [facility] ([facility]) [address] [place] [address] MCV (RBC) [Entitic vol] 83.7 fL Normal 82.0-98.[address] [facility] Comment on above: Performed By: #### L [id number] #### [facility] ([facility]) [address] [place] [address] Monocytes (Bld) [#/Vol] 0.98 10*3/uL Normal 0.10-1.[address] [facility] Comment on above: Performed By: #### L [id number] #### [facility] ([facility]) [address] [place] [address] Monocytes/100 WBC (Bld) 7.8 % Normal 5.0-12.[address] [facility] Comment on above: Performed By: #### L [id number] #### [facility] ([facility]) [address] [place] [address] Neutrophils (Bld) [#/Vol] 10.15 10*3/uL High 1.60-7.[address] [facility] Comment on above: Performed By: #### L [id number] #### [facility] ([facility]) [address] [place] [address] Neutrophils/100 WBC (Bld) 80.3 % High 40.0-72.[address] [facility] Comment on above: Performed By: #### L [id number] #### [facility] ([facility]) [address] [place] [address] NRBC (PER 100 WBCS) BY AUTOMATED COUNT 0.0 % Normal [address] [facility] Comment on above: Performed By: #### L [id number] #### [facility] ([facility]) [address] [place] [address] PLATELETS (10*3/UL) IN BLOOD AUTOMATED COUNT 297 10*3/uL Normal 150-[address] [facility] Comment on above: Performed By: #### L [id number] #### [facility] ([facility]) [address] [place] [address] RBC (Bld) [#/Vol] 3.92 10*6/uL Normal 3.80-5.00 [facility] Comment on above: Performed By: #### L [id number] #### [facility] ([facility]) [address] [place] [address] WBC (Bld) [#/Vol] 12.64 10*3/uL High 4.00-10.60 [facility] Comment on above: Performed By: #### L [id number] #### [facility] ([facility]) [address] [place] [address] COMPREHENSIVE METABOLIC PANE Blaine 01-13-2024 Albumin [Mass/Vol] 3.7 g/dL Normal 3.5-5.7 [facility] Comment on above: Performed By: #### L [id number] #### [facility] ([facility]) [address] [place] [address] ALP [Catalytic activity/Vol] 115 U/L High 34-[address] [facility] Comment on above: Performed By: #### L [id number] #### [facility] ([facility]) [address] [place] [address] ALT [Catalytic activity/Vol] 30 U/L Normal 7-[address] [facility] Comment on above: Performed By: #### L [id number] #### [facility] ([facility]) [address] [place] [address] Anion gap [Moles/Vol] 13 mmol/L Normal 7-20 [facility] Comment on above: Performed By: #### L [id number] #### [facility] ([facility]) [address] [place] [address] AST [Catalytic activity/Vol] 30 U/L Normal 13-[address] [facility] Comment on above: Performed By: #### L [id number] #### [facility] ([facility]) [address] [place] [address] Bilirubin [Mass/Vol] 0.6 mg/dL Normal 0.3-1.0 [facility] Comment on above: Performed By: #### L [id number] #### [facility] ([facility]) [address] [place] [address] Calcium [Mass/Vol] 8.8 mg/dL Normal 8.6-10.3 [facility] Comment on above: Performed By: #### L [id number] #### [facility] ([facility]) [address] [place] [address] Chloride [Moles/Vol] 94 mmol/L Low 98-107 [facility] Comment on above: Performed By: #### L [id number] #### [facility] ([facility]) [address] [place] [address] CO2 [Moles/Vol] 32 mmol/L High 21-31 [facility] Comment on above: Performed By: #### L [id number] #### [facility] ([facility]) [address] [place] [address] Creatinine [Mass/Vol] 0.69 mg/dL Normal 0.60-1.20 [facility] Comment on above: Performed By: #### L [id number] #### [facility] ([facility]) [address] [place] [address] GLOMERULAR FILTRATION RATE ML/MIN/1.73 SQ M.PREDICTED 121.2 mL/min/1.73m*2 Normal >60.[address] [facility] Comment on above: Result Comment: The [facility]???s estimated glomerular filtration rate (eGFR) will no [...] individuals. Performed By: #### L [id number] #### [facility] ([facility]) [address] [place] [address] Glucose [Mass/Vol] 77 mg/dL Normal 70-100 [facility] Comment on above: Performed By: #### L [id number] #### [facility] ([facility]) [address] [place] [address] Potassium [Moles/Vol] 2.7 mmol/L Invalid Interpretation Code 3.5-5.[address] [facility] Comment on above: Performed By: #### L [id number] #### [facility] ([facility]) [address] [place] [address] Protein [Mass/Vol] 7.9 g/dL Normal 6.0-8.3 [facility] Comment on above: Performed By: #### L [id number] #### [facility] ([facility]) [address] [place] [address] Sodium [Moles/Vol] 136 mmol/L Normal 136-145 [facility] Comment on above: Performed By: #### L [id number] #### [facility] ([facility]) [address] [place] [address] Urea nitrogen [Mass/Vol] 9 mg/dL Normal 7-[address] [facility] Comment on above: Performed By: #### L [id number] #### [facility] ([facility]) [address] [place] [address] UREA NITROGEN/CREATININE (MASS RATIO) IN SER/PLAS 13.[address] [facility] Comment on above: Performed By: #### L [id number] #### [facility] ([facility]) [address] [place] [address] CREATININEon 01-13-2024 Creatinine [Mass/Vol] 0.53 mg/dL Normal 0.40-1.00 [facility] Comment on above: Result Comment: METH OD TRACEABLE TO IDMS STANDARD Performed By: #### C RT #### [facility] ([id number]) [address] [place] [address] eGFR (CKD-EPI) NON-RACE DEPENDENT >90 Normal >59 [facility] Comment on above: Result Comment: Reported eGFR is based on the CKD-EPI 2020 equation that does not use a race coefficient. Performed By: #### C RT #### [facility] ([id number]) [address] [place] [address] CT ABDOMEN PELVIS W IV CONTR Marichuy [...] achievable Electronically signed: Arsalan Bales MD. Normal [facility] CTA CHEST W IV CONTRASTon CTA CHEST [...] reasonably achievable Electronically signed: Arsalan Bales MD. 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 Pt is also is having some chest pain that has been on and off. She stated this is the worse that she has had it. [facility] EDPROVon 01-13-2024 EDPROV HPI Chief Complaint Patient presents with Chest Pain Post-op Problem Pt is a 28yo F who states she had a total hysterectomy on 11/20/23 and has been having complications with increasing pain since. 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 Linn at [facility], he accepted pt for transfer. [BM] ED Course User Index [BM] Divine Coleman NP Diagnoses as of 01/14/242229 Pelvic abscess in female Sepsis without acute organ dysfunction, due to unspecified organism ([facility]) Medical Decision Making Attestion Divine Coleman NP 01/14/242230 Normal [facility] LACTIC ACID WITH 4 HOUR REFL EXon 01-13-2024 LACTATE (MMOL/L) IN SER/PLAS 1.3 mmol/L Normal 0.5-2.[address] [facility] Comment on above: Performed By: #### L [id number] #### [facility] (AKER) [address] [place] [address] MAGNESIUMon 01-13-2024 Magnesium [Mass/Vol] 2.5 mg/dL Normal 1.9-2.7 [facility] Comment on above: Performed By: #### L [id number] #### [facility] ([facility]) [address] [place] [address] POC CHEM7 W/ HCTon Chloride [Moles/Vol] 99 mmol/L Normal 98-109 [facility] Comment on above: Performed By: #### I 8XCA #### [facility] ([id number]) [address] [place] [address] CO2 [Moles/Vol] 27 mmol/L Normal 22-32 [facility] Comment on above: Performed By: #### I 8XCA #### [facility] ([id number]) [address] [place] [address] Creatinine [Mass/Vol] 0.6 mg/dL Normal 0.4-1.0 [facility] Comment on above: Result Comment: METH OD TRACEABLE TO IDMS STANDARD Performed By: #### I 8XCA #### [facility] ([id number]) [address] [place] [address] eGFR (CKD-EPI) NON-RACE DEPENDENT >90 Normal >59 [facility] Comment on above: Result Comment: Reported eGFR is based on the CKD-EPI 2020 equation that does not use a race coefficient. Performed By: #### I 8XCA #### [facility] ([id number]) [address] [place] [address] Glucose [Mass/Vol] 98 mg/dL Normal 65-99 [facility] Comment on above: Performed By: #### I 8XCA #### [facility] ([id number]) [address] [place] [address] Hematocrit (Bld) [Volume fraction] 29 % Low 35-47 [facility] Comment on above: Performed By: #### I 8XCA #### [facility] ([id number]) [address] [place] [address] PORTABLE BUN <6 Low 6-23 [facility] Comment on above: Performed By: #### I 8XCA #### [facility] ([id number]) [address] [place] [address] Potassium [Moles/Vol] 2.9 mmol/L Low 3.5-5.0 [facility] Comment on above: Performed By: #### I 8XCA #### [facility] ([id number]) [address] [place] [address] Sodium [Moles/Vol] 138 mmol/L Normal 134-146 [facility] Comment on above: Performed By: #### I 8XCA #### [facility] ([id number]) [address] [place] [address] POTASSIUMon 01-13-2024 Potassium [Moles/Vol] 3.1 mmol/L Low 3.5-5.0 [facility] Comment on above: Performed By: #### 2 823-3 #### [facility] ([id number]) [address], [address] [place] [address] PROTIME-INRon 01-13-2024 INR IN PPP BY COAGULATION ASSAY 1.12 High 0.90-1.[address] [facility] Comment on above: Result Comment: ACCC P [...] 1995;[id number]. Performed By: #### L [id number] #### [facility] [employer]) [address] [place] [address] PROTHROMBIN TIME (PT) IN PPP BY COAGULATION ASSAY 14.4 Seconds Normal 12.3-14.[address] [facility] Comment on above: Performed By: #### L [id number] #### [facility] [address] [place] [address] TROPONIN Ion 01-13-2024 Troponin I.cardiac [Mass/Vol] 0.02 ng/mL Normal 0.00-0.[address] [facility] Comment on above: Performed By: #### L [id number] #### [facility] ([facility]) [address] [place] [address] URINALYSIS MICROSCOPIC WITH REFLEX CULTUREon 01-13-2024 CASTS IN URINE Normal [facility] Comment on above: Performed By: #### L [id number] #### [facility] ([facility]) [address] [place] [address] CRYSTALS IN URINE Normal [facility] Comment on above: Performed By: #### L [id number] #### [facility] ([facility]) [address] [place] [address] MUCUS (#/HPF) IN URINE SEDIMENT Many Abnormal None Seen, Occasional, Few [facility] Comment on above: Performed By: #### L [id number] #### [facility] ([facility]) [address] [place] [address] OTHER MICROSCOPIC ELEMENTS Normal [facility] Comment on above: Performed By: #### L [id number] #### [facility] ([facility]) [address] [place] [address] RBC (#/HPF) IN URINE SEDIMENT 6-10 Abnormal None Seen [facility] Comment on above: Performed By: #### L [id number] #### [facility] ([facility]) [address] [place] [address] SQUAMOUS EPITHELIAL CELLS (#/HPF) IN URINE SEDIMENT Moderate Abnormal None Seen, Occasional [facility] Comment on above: Performed By: #### L [id number] #### [facility] ([facility]) [address] [place] [address] WBC (LEUKOCYTE) (#/HPF) IN URINE SEDIMENT 11-20 Abnormal None Seen [facility] Comment on above: Performed By: #### L [id number] #### [facility] ([facility]) [address] [place] [address] URINALYSIS WITH REFLEX CULTU REon 01-13-2024 BILIRUBIN, TOTAL PRESENCE IN URINE Negative Normal Negative [facility] Comment on above: Performed By: #### L [id number] #### [facility] ([facility]) [address] [place] [address] Clarity (U) Slightly Cloudy Abnormal Clear [facility] Comment on above: Performed By: #### L [id number] #### [facility] ([facility]) [address] [place] [address] Color (U) Cassidy Abnormal Yellow [facility] Comment on above: Performed By: #### L [id number] #### [facility] ([facility]) [address] [place] [address] Glucose (U) [Mass/Vol] Negative Normal Negative [facility] Comment on above: Performed By: #### L [id number] #### [facility] ([facility]) [address] [place] [address] HEMOGLOBIN PRESENCE IN URINE Small Abnormal Negative [facility] Comment on above: Performed By: #### L [id number] #### [facility] ([facility]) [address] [place] [address] Ketones Ql (U) Negative Normal Negative [facility] [facility] Comment on above: Performed By: #### L [id number] #### [facility] ([facility]) [address] [place] [address] LEUKOCYTE ESTERASE PRESENCE IN URINE BY TEST STRIP Small Abnormal Negative [facility] Comment on above: Performed By: #### L [id number] #### [facility] ([facility]) [address] [place] [address] NITRITE PRESENCE IN URINE Negative Normal Negative [facility] Comment on above: Performed By: #### L [id number] #### [facility] ([facility]) [address] [place] [address] pH (U) 5.0 [pH] Normal 5.0-8.[address] [facility] Comment on above: Performed By: #### L [id number] #### [facility] ([facility]) [address] [place] [address] Protein (U) [Mass/Vol] 30 mg/dL Abnormal Negative [facility] Comment on above: Performed By: #### L [id number] #### [facility] ([facility]) [address] [place] [address] Specific gravity (U) [Rel density] 1.020 Normal 1.015-1.[address] [facility] Comment on above: Performed By: #### L [id number] #### [facility] ([facility]) [address] [place] [address] UROBILINOGEN (EU/DL) IN URINE 4.0 EU/dL Abnormal Negative [facility] Comment on above: Performed By: #### L [id number] #### [facility] ([facility]) [address] [place] [address] Activated partial thrombopla stin time (aPTT) in platelet poor plasma by coagulation aOrdered By: Nikhil Quiñones on 01-08-2024 aPTT Coag (PPP) [Time] 35.0 s 25.1-36.5 [facility] Comment on above: A hematocrit value g reater than 55% may lead to inaccurate results in coagulation testing. Patients having hematocrit values >55% require a special collection tube for coagulation studies. Please contact the laboratory at [phone] for redraw instructions. Alanine aminotransferase [En zymatic activity/volume] in Serum or PlasmaOrdered By: Nikhil Quiñones on 01-08-2024 ALT [Catalytic activity/Vol] 13 U/L 7-52 [facility] Albumin [Mass/volume] in Ser um or Plasma by Bromocresol green (BCG) dye binding methoOrdered By: Nikhil Quiñones on 01-08-2024 Albumin BCG dye [Mass/Vol] 4.4 g/dL 3.5-5.7 [facility] Alkaline phosphatase [Enzyma tic activity/volume] in Serum or PlasmaOrdered By: Nikhil Quiñones on 01-08-2024 ALP [Catalytic activity/Vol] 66 U/L 34-104 [facility] Aspartate aminotransferase [ Enzymatic activity/volume] in Serum or PlasmaOrdered By: Nikhil Quiñones on 01-08-2024 AST [Catalytic activity/Vol] 16 U/L 13-39 [facility] Basophils Auto (Bld) [#/Vol] Ordered By: Nikhil Quiñones on 01-08-2024 Basophils (Bld) [#/Vol] 0.0 10*3/uL 0.0-0.2 [facility] Basophils/100 WBC Auto (Bld) Ordered By: Nikhil Quiñones on 01-08-2024 Basophils/100 WBC (Bld) 0.4 % . [facility] Bilirubin Test strip Ql (U)O rdered By: Nikhil Quiñones on 01-08-2024 Bilirubin Ql (U) Negative Negative [facility] Bilirubin.direct [Mass/volum e] in Serum or PlasmaOrdered By: Nikhil Quiñones on 01-08-2024 Bilirubin.direct [Mass/Vol] 0.00 mg/dL Low 0.03-0.18 [facility] Comment on above: If the DBIL is less than 0.1, IBIL is not able to becalculated. Bilirubin.total [Mass/volume ] in Serum or PlasmaOrdered By: Nikhil Quiñones on 01-08-2024 Bilirubin [Mass/Vol] 0.3 mg/dL 0.3-1.0 [facility] COVID CepheidOrdered By: Joselito Quiñones on 01-08-2024 SARS-CoV-2 (COVID-19) Ab IA Ql Negative Negative [facility] Comment on above: This is a duplicate [employer] Xpert Xpress CoV-2/Flu/RSV Plus RNA by RT-PCR result to be used for statistical tracking purpose only. SARS-CoV-2 (COVID-19) RNA MARICEL+probe Ql (Unsp spec) [facility] Calcium [Mass/volume] in Ser um or PlasmaOrdered By: Nikhil Quiñones on 01-08-2024 Calcium [Mass/Vol] 9.5 mg/dL 8.6-10.3 [facility] Carbon dioxide, total [Moles /volume] in Serum or PlasmaOrdered By: Nikhil Quiñones on 01-08-2024 CO2 [Moles/Vol] 27.6 mmol/L 21.0-31.0 [facility] Chloride [Moles/volume] in S karla or PlasmaOrdered By: Nikhil Quiñones on 01-08-2024 Chloride [Moles/Vol] 102 mmol/L 98-107 [facility] Color Auto (U)Ordered By: Ryne Quiñones on 01-08-2024 Color (U) Yellow Yellow [facility] Creatinine [Mass/volume] in Serum or PlasmaOrdered By: Nikhil Quiñones on 01-08-2024 Creatinine [Mass/Vol] 0.63 mg/dL 0.60-1.20 [facility] Eosinophils Auto (Bld) [#/Vo l]Ordered By: Nikhil Quiñones on 01-08-2024 Eosinophils (Bld) [#/Vol] 0.0 10*3/uL 0.0-0.45 [facility] Eosinophils/100 WBC Auto (Bl d)Ordered By: Nikhil Quiñones on 01-08-2024 Eosinophils/100 WBC (Bld) 0.1 % . [facility] Erythrocyte distribution wid th Auto (RBC) [Ratio]Ordered By: Nikhil Quiñones on 01-08-2024 Erythrocyte distribution width (RBC) [Ratio] 15.2 % 11.9-15.3 [facility] Globulin Calc (S) [Mass/Vol] Ordered By: Nikhil Quiñones 01-08-2024 Globulin (S) [Mass/Vol] 3.4 g/dL [facility] Glucose [Mass/volume] in Ser um or PlasmaOrdered By: Nikhil Quiñones on 01-08-2024 Glucose [Mass/Vol] 90 mg/dL 70-100 [facility] Comment on above: ADA recommended refe rence rangeRandom Glucose Reference Range is dependent on time and content of last meal. Glucose of more than 200 mg/dL in a nonstressed, ambulatory subject supports the diagnosis of Diabetes Mellitus. Hematocrit Auto (Bld) [Volum e fraction]Ordered By: Nikhil Quiñones on 01-08-2024 Hematocrit (Bld) [Volume fraction] 36.5 % 34.0-46.4 [facility] Hemoglobin [Mass/volume] in BloodOrdered By: Nikhil Quiñones 01-08-2024 Hemoglobin (Bld) [Mass/Vol] 12.2 g/dL 11.8-15.4 [facility] INR in Platelet poor plasma by Coagulation assayOrdered By: Nikhil Quiñones on 01-08-2024 INR Coag (PPP) [Relative time] 1.2 {INR} [facility] Comment on above: INR Therapeutic Rang e A) Pre- and Peroperative OAT started two weeks before surgery. NOT HIP SURGERY: 1.5 - 2.5 HIP SURGERY: 2 - 3B) Primary and secondary prevention of venous THROMBOSIS: 2 - 3C) Active venous thrombosis, pulmonary embolismand prevention of recurrent venous thrombosis: 2 - 3D) Prevention of arterial thromboembolismincluding patients with mechanical heart valves: 3 - 4.5 Ketones Auto test strip (U) [Mass/Vol]Ordered By: Nikhil Quiñones on 01-08-2024 Ketones (U) [Mass/Vol] Negative Negative [facility] Lactate [Moles/volume] in Se rum or PlasmaOrdered By: Nikhil Quiñones on 01-08-2024 Lactate [Moles/Vol] 0.6 mmol/L 0.5-2.[address] [facility] Leukocytes [#/volume] correc arminda for nucleated erythrocytes in Blood by Automated counOrdered By: Nikhil Quiñones on 01-08-2024 WBC corrected for nucl RBC Auto (Bld) [#/Vol] 7.6 10*3/uL 3.8-11.6 [facility] Lipase [Enzymatic activity/v olume] in Serum or PlasmaOrdered By: Nikhil Quiñones on 01-08-2024 Lipase [Catalytic activity/Vol] 10.0 U/L Low 11.0-82.0 [facility] Lymphocytes Auto (Bld) [#/Vo l]Ordered By: Nikhil Quiñones on 01-08-2024 Lymphocytes (Bld) [#/Vol] 1.1 10*3/uL 1.00-4.8 [facility] Lymphocytes/100 WBC Auto (Bl d)Ordered By: Nikhil Quiñones on 01-08-2024 Lymphocytes/100 WBC (Bld) 14.9 % . [facility] MCH Auto (RBC) [Entitic mass ]Ordered By: Nikhil Quiñones on 01-08-2024 MCH (RBC) [Entitic mass] 27.6 pg 24.7-34.3 [facility] MCHC Auto (RBC) [Mass/Vol]Or dered By: Nikhil Quiñones on 01-08-2024 MCHC (RBC) [Mass/Vol] 33.5 g/dL 32.0-35.0 [facility] MCV Auto (RBC) [Entitic vol] Ordered By: Nikhil Quiñones on 01-08-2024 MCV (RBC) [Entitic vol] 82.4 fL 80-100 [facility] Monocyte distribution width [Entitic volume] in Blood by AutomatedOrdered By: Nikhil Quiñones on 01-08-2024 Monocyte distribution width Auto (Bld) [Entitic vol] 21.47 % High 0.00-20.00 [facility] Comment on above: For adults in ED, MD W > 20.0 may be associated with a higher risk of sepsis during the first 12 hrs of hospital admission Monocytes Auto (Bld) [#/Vol] Ordered By: Nikhil Quiñones on 01-08-2024 Monocytes (Bld) [#/Vol] 0.6 10*3/uL 0.0-0.8 [facility] Monocytes/100 WBC Auto (Bld) Ordered By: Nikhil Quiñones on 01-08-2024 Monocytes/100 WBC (Bld) 8.0 % . [facility] Neutrophils Auto (Bld) [#/Vo l]Ordered By: Nikhil Quiñones on 01-08-2024 Neutrophils (Bld) [#/Vol] 5.8 10*3/uL 1.8-7.7 [facility] Neutrophils/100 WBC Auto (Bl d)Ordered By: Nikhil Quiñones on 01-08-2024 Neutrophils/100 WBC (Bld) 76.6 % . [facility] Nitrite Test strip Ql (U)Ord ered By: Nikhil Quiñones on 01-08-2024 Nitrite Ql (U) Negative Negative [facility] No Panel InformationOrdered By: Nikhil Quiñones on 01-08-2024 Estimated GFR (CKD-EPI) > 60.0 mL/Min [facility] Creatinine Clearance (Chem 127.27 [facility] Nucleated erythrocytes [Pres ence] in Blood by Automated countOrdered By: Nikhil Quiñones on 01-08-2024 Nucleated RBC Auto Ql (Bld) 0.1 /100{WBC} 0-0.5 [facility] Platelet mean volume Auto (B ld) [Entitic vol]Ordered By: Nikhil Quiñones on 01-08-2024 Platelet mean volume (Bld) [Entitic vol] 8.5 fL 6.3-10.7 [facility] Platelets Auto (Bld) [#/Vol] Ordered By: Nikhil Quiñones on 01-08-2024 Platelets (Bld) [#/Vol] 228 10*3/uL 150-450 [facility] Potassium [Moles/volume] in Serum or PlasmaOrdered By: Nikhil Quiñones on 01-08-2024 Potassium [Moles/Vol] 3.7 mmol/L 3.5-5.1 [facility] Protein Auto test strip (U) [Mass/Vol]Ordered By: Nikhil Quiñones on 01-08-2024 Protein (U) [Mass/Vol] Negative Negative [facility] Protein [Mass/volume] in Ser um or PlasmaOrdered By: Nikhil Quiñones on 01-08-2024 Protein [Mass/Vol] 7.8 g/dL 6.4-8.9 [facility] Prothrombin time (PT)Ordered By: Nikhil Quiñones on 01-08-2024 PT Coag (PPP) [Time] 13.8 s High 9.0-12.9 [facility] Comment on above: A hematocrit value g reater than 55% may lead to inaccurate results in coagulation testing. Patients having hematocrit values >55% require a special collection tube for coagulation studies. Please contact the laboratory at [phone] for redraw instructions. RBC Auto (Bld) [#/Vol]Ordere d By: Nikhil Quiñones on 01-08-2024 RBC (Bld) [#/Vol] 4.43 10*6/uL 3.60-5.[address] [facility] Serum or plasma albumin/glob ulin mass ratioOrdered By: Nikhil Quiñones on 01-08-2024 Albumin/Globulin [Mass ratio] 1.3 {ratio} [facility] Serum or plasma anion gap de terminationOrdered By: Nikhil Quiñones on 01-08-2024 Anion gap [Moles/Vol] 12.1 mmol/L 6.0-15.0 [facility] Serum or plasma non-glucuron idated bilirubin measurement (mass/volume)Ordered By: Nikhil Quiñones on 01-08-2024 Bilirubin.indirect [Mass/Vol] 0.3 mg/dL [facility] Sodium [Moles/volume] in Ser um or PlasmaOrdered By: Nikhil Quiñones on 01-08-2024 Sodium [Moles/Vol] 138 mmol/L 136-145 [facility] Specific gravity Auto test s trip (U) [Rel density]Ordered By: Nikhil Quiñones on 01-08-2024 Specific gravity (U) [Rel density] 1.013 1.001-1.030 [facility] Trichomonas vaginalis detect ion by wet preparationOrdered By: Nikhil Quiñones on 01-08-2024 T. vaginalis Wet prep Ql (Unsp spec) [facility] Urea nitrogen [Mass/volume] in Serum or PlasmaOrdered By: Nikhil Quiñones on 01-08-2024 Urea nitrogen [Mass/Vol] 7 mg/dL 7 [facility] Urine clarity by refractomet ry automatedOrdered By: Nikhil Quiñones on 01-08-2024 Clarity Refractometry automated (U) Clear Clear [facility] Urine glucose measurement by automated test strip (mass/volume)Ordered By: Nikhil Quiñones on 01-08-2024 Glucose Auto test strip (U) [Mass/Vol] Normal mg/dL Normal [facility] Urine hemoglobin detection b y automated test stripOrdered By: Nikhil Quiñones on 01-08-2024 Hemoglobin Auto test strip Ql (U) Negative Negative [facility] Urine leukocyte esterase det ection by automated test stripOrdered By: Nikhil Quiñones on 01-08-2024 Leukocyte esterase Auto test strip Ql (U) Negative Negative [facility] Urobilinogen Auto test strip (U) [Mass/Vol]Ordered By: Nikhil Quiñones on 01-08-2024 Urobilinogen (U) [Mass/Vol] Normal mg/dL Normal [facility] WBC Auto (Bld) [#/Vol]Ordere d By: Nikhil Quiñones on 01-08-2024 WBC (Bld) [#/Vol] 7.6 10*3/uL 3.8-11.6 [facility] pH Auto test strip (U)Ordere d By: Nikhil Quiñones on 01-08-2024 pH (U) 7.0 [pH] 5.0-9.0 [facility] Coding Summaryon 12-28-2023 Coding Summary HTMLBase 64 VwwmfqtcQMu0lMd+PGhlYWQ+P Q4UPNWdH74quOJvdE8lF0IKGC lOSywgQVBQTElOSyIgbmFtZT1 kaXNjZXJu IC8+UI9uAELeBggalGHvv2C1z QA0L24rtw0hNWbacVG3XIVwBa Yaxphio3oapNi7HWlcNypwInU t VFZaaG66CVX1zV17Xx59xWDqe RPsm4etrEw6RdVsLSIuENI6sD iaEBuuj0IcDUBnQ29sgGDgy8S 6 PYYskPnyaYOhTmJrnCZ2uM9tR Wjkbhjjo6tnwkemNpu3gt62aI Mxd6N0qZK5H2MdmeD1UDUytTD g WulxoLJUdI7dqdpxh3scvcamW cXuUWTdDOi5JJk2OZQlvEawNu MfIE03SUW3OBAzqoYwM5ThSSP s bUdhWpO2j7A4Pc9WN7BQRptkI 1VNTUFSWTwvdGQ+AQ28sv53G3 DdNrahGrp3VYUyAXV6xNC5qV8 n YHVvIPhdd6W3pUV1X3RtdjGfv c1jg9ttFXIqKUtwX44sxMEud8 D2CDVirCC6KTLhlVxrVpZpmR0 3 Oyc+MKTdvWgom4KcQjrrc6wth 8lltDj9ZokaMQDrzpQkdIjzAF J9u6CeLb8oEFRecBD7qRK8cW4 i JdGmJrW4ZUsoL127BgFndEJbL hxsX71vL9JtmUI+RGCrQmv7BA XtvVmqOD1aU1WpKUApunkraSX m aFqpQN8iKURlghffLNLvcO7xM HMxK1l2RyOiXnT0KFpbU8RrGQ EjubbuJr28cG2iAaMkBrV0LWe u X1GgkoU3IRVisTQrHRapYOL9K 66cd4F5UQKfVDFpFWR2wPV9wT 1hbGlnbjogbGVmdDsgdmVydGl j MSxpFKosR926BWDodKmcWyClL GluZyBEYXRlOiAgMDcvMTEvMj AyNDwvdGQ+FLNoQHE6pSixDVN n bSKwRSikHr9ejIfkaZvdZQ8pD NGgmvliXFYxmZ0xGLYewJUrwN nvQY2aGPLnlssyp477TvOsKKC 0 PIRbyTYmV8IlnM1bYtFwZMFyM NDnQ1AivRWqJQlkL033MOdnYa L4HJNtxvVpH1JfBNWpkLrlTuK 0 s6O7Wu8Ci6AqtyzkG8BohUDxS bGuEkohXFp8H0WcLbsoxST+PC 99DZNrBY03TAr5LDR8hTgfCOg i ZPDxX4XclX1xCcGzDBDmMYRkM yc+PHRhYmxlIHdpZHRoPScxMD TaMfEwpEolBH7lYv0hONJfCJK v hIjwgXRfEkDjq0lyCIMaFHibM E9nySaeY5IkqKC3HILsm6g9Yc 84A47lY3XehID+GIQbhWP1hOK 0 rU8wTbCoNjN1NLrjR576VxPbe RYtFeyro5gsa4nwjNz8MlF8ZZ ZpvpBinXznLLM8k2JbSu71Y94 s IHdpZHRoPSIxNSUiIHZhbGlnb p4jjT3rKo8+FVNbkSU5uWA4tT 3qTqMvWfV8GNxrK620HgUdoCX v Qqxig3bpk2cdvGx0FzQaPYAdi aQntPrzZLK7e0NyZx01V7KhoL yxw9SvSzj3uw98iUEdp1A5yHO 9 P2DsSYIxrttpyJJetAckMJ4jS HVvohgnBLOdaQ3nQMVvO6l0Sx YuVyW7GTsaA9TaisN0YWFarEO g CYFktUARmG5teemal5pduaadO cYjFNFlCKx2WLm7VVJemYxkFb ZgSCP4KvZ5TJW2fSPyqO4paZg n lpdteT8kDut+BEJ0mLPmlCKBF R7gKlnpkJP+LULgCTN0iYmzMI mbBMPevZ0mMVLaN2d6XsDrYhO 1 ACanG6OvfdL5VQWhgDVuRPDvn JYQdW1wgyief3miahjdXcOkWI JaFEd3WPh5IBWfaRshYnChCFL 0 EwP4APV5qZKefB2xdEgsbxdpb G9wOyc+WjolaXcxMDC8HAt2G5 LnPft5VQJrvZfvFN9aqMOrSCm u Cg4ibTlmrWecVD0rBKDxswlde 309DsOfu1paMQCtaARyCTzpHV R6J01iu3B3HARoHQNtXXL3zNS 4 sP5kwNsbamlblQYrpQhjyoLjc LjyOBclHIxoP068KRNawSafXm AwFOm5R4GmZdj0AWXylZazVL3 n xNHmWWrgLm4olDhmiPwcDF5dT SFssbxhd827SjRfr5ehRMLfoF UdWQexYXM0D21dt0X1HYWxNFR w QLE8aDM4gL6ndEasqimjxSPub EnnzbTjxCtcOPjeCAerQ975YN JpsYgyQgVzrBo3T5VpCmi6ZFR z vLnpGH5mxDFqEIsjWi2qyMuna AanWM6sVLRqhoeke546XdWlg7 tlQYDuaLBwAFxkGJM1Z55sq2D 6 ESSnDQMzLKQ4mRI1cF8shRtjq jogbGVmdDsgdmVydGljYWwtYW ulH937QXLhlEnoEgTieXqpdmM g MPsyXPe3U8BlUchrvTH+PC90Y NLeIF76fPGobEOeh2fohVe7Np TaXOLmDOE3pZjwDWkcl7XpFNL t E19xfUZjt2J4XNUunYpuwKPeR vOkiFJ2yP5hZNjjmtzsy0qeud cwDcnsc5ioee15oG56E38qQSx p XYVvVAEkIMLyRKNizOvima7hh G9wIi8+UVZrwYC6qYL8lI1aTY SjBfD6VKeeS044AoNsmBMkCzz j o1fuw4kzrCt7ZfS6TQPixpXzb TliPNH3n8XjLk52Q85bBTnfCT TmAJIjRGWeHVHqhUlgzf7ukN3 w Ii8+HEWinBC9cNO9qE6fZtQuQ wW0CBtmD822DzUqbYPsEezyU2 9nN4DpwJK+AHZhHzx4DRWqkOz s WL2cgRWyGNihSc5hJTB2VuSvI uBjUYjhA5IzENInwgnhkzfqhK W7RGVvVFTgvK72Mh8nsSitGCE w qQLDuO7tfmlzp6cimstfDqLnE LTxQKj9WAt4OPXkwGwdFeDxJB M3DnW5MFE2gLFkuH3bqJgxkwn g eP1aN7JqFPMptbouFp15gF8jD jJtBbY9USxtHuq+N9rEX68CAO MTXXCGSI9HSDYFNToXXcasiKN + NAMvLYB9sJjpHHfjGFJmhX0tA IZdC1d6PrIuJlK6OUbaV1DgEC ZvliabFv83sI3mWfXeLrR7HAj u T7PvdaE0OQRdvDWyNZmuFEJ6B 79bc3B0ZWHyFOHpTSS3fZX0eW 1hbGlnbjogbGVmdDsgdmVydGl j MFymRLziZ613ONUciSjiCdAkJ yD1VrT4RBW9M3CiCve6FPIylN akUP7xtKQmBMxyNe6zeXihsLb g DY4dVUOmfsnzASBidK3wSZHnv VBlcKfiUH7pBBXgfmdfk465Qp CbOEJ0KZTvvSFpT4BisE5fTaM j YSJdNMYsM7JzhCAeHKeoS227E WlwPkJ7ZKEbrdQoP5XaNWSwiD bjXrN9a8N9Dk5lTLKTANCvklv v dGQ+MYTfEOR8mByyGPvyEESrn M5hKAIaP8s3BuNaYzX9PUrdR7 IhHQGeluwtQo73tW4pYyRdVfM 1 PQooR1AzkpU9ZDNayYYiUJaaM WR4L82iw2Z0MLEjPQZlMHR3tX N7mL7oiZyjlpfwgZYnxKspntX y jZhoTJojKYicV782YAHpiDcgD kZFTUFMRTwvdGQ+BGZxQTX5kP tcTIveOWMsnG8oFGSrU2e8KpA w JvV9IDnqV5JwMUZloqryNl42o W2eCrWsBzI1MMbcH2HlzyY1FM GrcBCtZDgpWAY6C05cb1B5YSF w DPEsXQX7sHX3gV6csAequkvuf GVmdDsgdmVydGljYWwtYWxpZ2 04GMYolMrwDyTqXHZfSV2bxJc v dGQ+RV34xs76L2HkUaygNvu8M HLbTWS6vFJ2yZ1rVJSmODwhz1 Q4cDN2L7DaksEvkm3ex8evKTI z HRznH17zvTPks0K5WMFogWO9R BUodCwbOqVhzI09Yrx+PGNvbG loh3LxOibig3gdf8dopMi9PoO w NLFuzyOskEepDAF5n1YoNu92N 29sIHdpZHRoPSIzMCUiIHZhbG kuth3nkF0tGi7+NHAwyAQ6xCV 0 pE0bCfYgOoU9KXozB667ThDie JKuKgvup2kdh6zeiQb1ZyPdMW NkkyIpzVicCPK3z8IjPj77C3M v eGiut0RtNzg7zv34iLQqa8G4c JN7X3UfRRFllrllwJIeaBowJZ 4eDXZhxbocRESgtY9nSRGzJ0y 0 XbPbGmT0DHxiB0AudzE9GNHoa PCxLTKggEAHoU6sfqesl2odkj mhAsQgYDXqKVy7DNu0YNWmuZu u MfUpXID1LtG8DNS3dSFebW3kg SqzqvdgnE4gDji+UHq7w5kdnF DjMK7ojMO9YO20JS30dZZbx0L 5 cDV2F0UnNPExhsmwctgtbOS1Q DWeZVZzmD96Pb4ccPkaWt5hBO WcPPS0EUKigCPdO9FnrO4lDfJ j DYOhDRHsL7UqqVOzGScqF827H AzwYeV5OLOqrgMiF3DjTTEgeH rqCoL2s3Z9Nd2LWB46RN83ST0 8 iYNwf4J4eUB2N9DdGTCmawwof lntgJW6DLWkDUWosO54Rm8czT bnMj1nUGEsLBF1TWYjrUEoS3S v pO7vLbYqVVTtFAUmM8DamWInB DdnY843CIuqWrM8ETVwjxRaG2 ElRXAaePsfAuL2x1J3Tu0HTi3 6 VH13OX86eMEoy0Y8kKN4J7WzI XMjkfhrfiibqHU0ICWyCTYxsW 64Iw3ysDqjMk5gCUVaJUE2WXZ p bJNuP8NsuP3eRkRmZFCyKDFpY 1BzwTYhQDtaE110AEkhYdG1TS YabrAdG9RvTXCmtEzmBkO5u7V 7 Yn7CCQfporb5I2CmJnkotVU+P T49CNOkIY01mHHffHYjb5ituO n4GjSzPBQcHYG8rUqsQDjjn8Z k ZXI (more content not included)... Normal [facility] .Auto Diff 12-18-2023 Auto [place] % 8 % Normal 12 [facility] Comment on above: Performed By: #### 1 [id number], [id number], [id number], 87649782, 1003368580, 1043025 #### [facility] (DEFAULT) [address] [place] [address] 53526 Baso Abs# 0.0 x10 Normal 0.0-0.2 [facility] Comment on above: Performed By: #### 1 [id number], [id number], , 47614331, 0120913482, 9248071 #### [facility] (DEFAULT) [address] [place] [address] 57982 Basophils/100 WBC (Bld) 0.5 % Normal 0.2-2.0 [facility] Comment on above: Performed By: #### 1 [id number], [id number], 2423091668, 07250769, 1981777552, 9686303 #### [facility] (DEFAULT) [address] [place] [address] 02418 Eos Abs# 0.0 x10 Normal 0.0-0.4 [facility] Comment on above: Performed By: #### 1 [id number], 9094381385, 4250287680, 51108455, 6899629333, 5936036 #### [facility] (DEFAULT) [address] [place] [address] 42537 Eosinophils/100 WBC (Bld) 0.5 % Low 0.9-4.0 [facility] Comment on above: Performed By: #### 1 [id number], 0229729805, 0764292090, 76831533, 1241686134, 1305237 #### [facility] (DEFAULT) [address] [place] [address] 09312 Lymph Abs# 1.9 x10 Normal 1.3-2.9 [facility] Comment on above: Performed By: #### 1 [id number], 0278677285, 5293113429, 32490214, 1361098116, 3171828 #### [facility] (DEFAULT) [address] [place] [address] Lymphocytes/100 WBC (Bld) 32 % Normal 14-48 [facility] Comment on above: Performed By: #### 1 [id number], 3626658806, 8986922934, 27740267, 0237209084, 1281373 #### [facility] (DEFAULT) [address] [place] [address] [place] Abs# 0.4 x10 Normal 0.0-0.8 [facility] Comment on above: Performed By: #### 1 [id number], 7186320046, 2199065708, 69241156, 2599915357, 6582052 #### [facility] (DEFAULT) [address] [place] [address] 55247 Neut Abs# 3.5 x10 Normal 1.5-9.2 [facility] Comment on above: Performed By: #### 1 [id number], 1822541524, 9130807502, 06155207, 1091125286, 1643129 #### [facility] (DEFAULT) [address] [place] [address] 09092 Neutrophils/100 WBC (Bld) 59 % Normal 44-88 [facility] Comment on above: Performed By: #### 1 [id number], 3727064872, 2466121699, 74735624, 4594642160, 1345633 #### [facility] (DEFAULT) [address] [place] [address] CBC w/ Auto Diffon 4 Erythrocyte distribution width (RBC) [Ratio] 15.9 % High 11.5-15.0 [facility] Comment on above: Performed By: #### 1 [id number], 4247396587, 3234143818, 01604621, 0690408023, 4520659 #### [facility] (DEFAULT) [address] [place] [address] Hematocrit (Bld) [Volume fraction] 34.4 % Normal 33.7-40.4 [facility] Comment on above: Performed By: #### 1 [id number], 1490538773, 7766060876, 12049024, 4441315378, 2506461 #### [facility] (DEFAULT) [address] [place] [address] Hemoglobin (Bld) [Mass/Vol] 11.3 g/dL Normal 11.3-15.9 [facility] Comment on above: Performed By: #### 1 [id number], 8886417169, 2893698198, 03716737, 0981796417, 6245316 #### [facility] (DEFAULT) [address] [place] [address] Man Diff? Auto Invalid Interpretation Code [facility] Comment on above: Performed By: #### 1 [id number], 4730650210, 4311861099, 26827042, 0859150648, 3494681 #### [facility] (DEFAULT) [address] [place] [address] 54674 MCH (RBC) [Entitic mass] 28 pg Normal 24-34 [facility] Comment on above: Performed By: #### 1 [id number], 8334973584, 9939389246, 13370795, 3864987692, 6390930 #### [facility] (DEFAULT) [address] [place] [address] 51866 MCHC (RBC) [Mass/Vol] 33 g/dL Normal 26-37 [facility] Comment on above: Performed By: #### 1 [id number], 5821076952, 8224029772, 12630437, 6701930176, 6557699 #### [facility] (DEFAULT) [address] [place] [address] 73096 MCV (RBC) [Entitic vol] 84 fL Normal 81-100 [facility] Comment on above: Performed By: #### 1 [id number], 3489826843, 8082650141, 79172688, 4327427324, 1688799 #### [facility] (DEFAULT) [address] [place] [address] 35943 Platelet 233 x10 Normal 138-427 [facility] Comment on above: Performed By: #### 1 [id number], 7588585188, 9095946368, 87416870, 5642367918, 1741262 #### [facility] (DEFAULT) [address] [place] [address] 64183 Platelet mean volume (Bld) [Entitic vol] 8.7 fL Normal 6.3-10.2 [facility] Comment on above: Performed By: #### 1 [id number], 5009540089, 1647067924, 04094108, 4613077982, 4739763 #### [facility] (DEFAULT) [address] [place] [address] 34984 RBC 4.10 x10 Normal 3.70-5.30 [facility] Comment on above: Performed By: #### 1 [id number], 3900451508, 3477526435, 37517800, 2343966012, 0502064 #### [facility] (DEFAULT) [address] [place] [address] 94821 WBC 5.8 x10 Normal 3.5-10.5 [facility] Comment on above: Performed By: #### 1 [id number], 1910173193, 2212461983, 85015314, 6560213568, 8488049 #### [facility] (DEFAULT) [address] [place] [address] 19951 CMP Standardon 12-18-2023 eGFR Non AA >60 Invalid Interpretation Code [facility] Comment on above: Performed By: #### 1 [id number], 0650764365, 5039462779, 20417719, 8338481253, 2121386 ####[facility] (DEFAULT)[address] [place] [address] 84981 eGFR AA >60 Invalid Interpretation Code [facility] [facility] Comment on above: Performed By: #### 1 [id number], [id number], [id number], 05791891, [id number], [id number] ####[facility] (DEFAULT)[address] [place] [address] 72480 Albumin [Mass/Vol] 4.3 g/dL Normal 3.5-5.0 [facility] Comment on above: Performed By: #### 1 [id number], [id number], 1399086593, 35853284, 3639138036, 1376834 ####[facility] (DEFAULT)[address] [place] [address] Albumin/Globulin [Mass ratio] 1.2 {ratio} Low 1.4-2.6 [facility] Comment on above: Performed By: #### 1 [id number], [id number], 1705753960, 10701803, 2813773782, 8112446 ####[facility] (DEFAULT)[address] [place] [address] Alk Phos 44 IU/L Normal 32-91 [facility] Comment on above: Performed By: #### 1 [id number], 7871077575, 6836040152, 37485456, 2360316020, 6503905 ####[facility] (DEFAULT)[address] [place] [address] 37510 ALT [Catalytic activity/Vol] 13.0 U/L Low 14.0-54.0 [facility] Comment on above: Performed By: #### 1 [id number], 5079096210, 2930906286, 59673118, 4857530854, 6771348 ####[facility] (DEFAULT)[address] [place] [address] 08098 Anion gap [Moles/Vol] 11.1 mmol/L Normal 5.0-19.0 [facility] Comment on above: Performed By: #### 1 [id number], 5832212303, 6049757479, 60862119, 5092622677, 9594311 ####[facility] (DEFAULT)[address] [place] [address] 35912 AST [Catalytic activity/Vol] 17 U/L Normal 15-41 [facility] Comment on above: Performed By: #### 1 [id number], 5541710209, 7679121833, 71432377, 8901239799, 3770875 ####[facility] (DEFAULT)[address] [place] [address] 94293 Bili Total 0.4 mg/dL Normal 0.3-1.2 [facility] Comment on above: Performed By: #### 1 [id number], 5128434821, 5914599504, 18111704, 1939183312, 6769216 ####[facility] (DEFAULT)[address] [place] [address] 48321 Calcium [Mass/Vol] 8.9 mg/dL Normal 8.9-10.3 [facility] Comment on above: Performed By: #### 1 [id number], 6513098643, 0290472004, 08203821, 8162738547, 3794141 ####[facility] (DEFAULT)[address] [place] [address] 26283 Chloride [Moles/Vol] 106 mmol/L Normal 101-111 [facility] Comment on above: Performed By: #### 1 [id number], 0767948847, 1133405381, 98145424, 6355009237, 0498959 ####[facility] (DEFAULT)[address] [place] [address] 30548 CO2 [Moles/Vol] 23 mmol/L Normal 21-32 [facility] Comment on above: Performed By: #### 1 [id number], 0912895767, 8676294724, 84301381, 9027503337, 3045086 ####[facility] (DEFAULT)[address] [place] [address] 28885 Creatinine [Mass/Vol] 0.67 mg/dL Normal 0.60-1.30 [facility] Comment on above: Performed By: #### 1 [id number], 5560066070, 9054670195, 01092017, 0751451076, 4741430 ####[facility] (DEFAULT)[address] [place] [address] 85517 Globulin (S) [Mass/Vol] 3.4 g/dL Normal 1.5-4.3 [facility] Comment on above: Performed By: #### 1 [id number], 9196693079, 2500377038, 29112780, 7572007762, 3395137 ####[facility] (DEFAULT)[address] [place] [address] 79678 Glucose [Mass/Vol] 93.0 mg/dL Normal 74.0-118.0 [facility] Comment on above: Performed By: #### 1 [id number], 3610331389, 9617083280, 81872814, 6238746519, 1401628 ####[facility] (DEFAULT)[address] [place] [address] 31741 Osmolality 272 mOsm/L Invalid Interpretation Code [facility] Comment on above: Performed By: #### 1 [id number], 2925430520, 2513261852, 14273587, 0251949525, 1301109 ####[facility] (DEFAULT)[address] [place] [address] 99368 Potassium [Moles/Vol] 3.1 mmol/L Low 3.6-5.1 [facility] Comment on above: Performed By: #### 1 [id number], 0652570841, 2559102176, 29587893, 1112658855, 8784350 ####[facility] (DEFAULT)[address] [place] [address] 42757 Protein [Mass/Vol] 7.7 g/dL Normal 6.5-8.1 [facility] Comment on above: Performed By: #### 1 [id number], 3501169149, 4329687359, 96491534, 2705844199, 2561244 ####[facility] (DEFAULT)[address] [place] [address] 18793 Sodium [Moles/Vol] 137.0 mmol/L Normal 136.0-144.0 [facility] Comment on above: Performed By: #### 1 [id number], 5682885451, 5923483963, 61271874, 4966673794, 5810462 ####[facility] (DEFAULT)[address] [place] [address] Urea nitrogen [Mass/Vol] 9 mg/dL Normal 8- [facility] Comment on above: Performed By: #### 1 [id number], 4204144937, 2966027348, 43531388, 8458068625, 0204466 ####[facility] (DEFAULT)[address] [place] [address] Urea nitrogen/Creatinine [Mass ratio] 13.4 mg/mg Normal 4.6-16.2 [facility] Comment on above: Performed By: #### 1 [id number], 2440264612, 2474736885, 58662823, 6484407428, 0639338 ####[facility] (DEFAULT)[address] [place] [address] CT Abdomen/Pelvis w/o Contra drewn 12-18-2023 CT Abdomen/Pelvis w/o Contrast EXAMINATION: CT [...] Small hiatal hernia. Final Dictated by: Vi aHncock MD Dictated DT/TM: 12/18/23 6:39 Signed (Electronic Signature): Vi Hancock MD 12/18/23 6:48 pm Technologist: [facility] ED Clinical Summaryon 2023 ED Clinical Summary [facility] - Emergency Department [address] [place], [place] [address] ED Clinical Summary PERSON INFORMATION Name: BARBRA CLAROS Age: 28 Years Sex: FEMALE : 1995 MRN: Acct#: Visit Reason: Pelvic pain; FALL Arrival: 12/18/2023 16:55:10 Discharge: 12/18/2023 19:09:00 LOS: 000 02:14 Check In: 12/18/2023 16:55:10 Checkout:12/18/2023 19:09:00 Address: [address] [place] [address] PCP: Provider, None PROVIDER INFORMATION Provider Role Assigned Unassigned Anjel Yates MD ED Provider 12/18/2023 16:57:27 Viola Esqueda LOGGING ENGINEER Nurse 12/18/2023 17:05:39 VITALS INFORMATION Vital Sign [...] PATIENT EDUCATION INFORMATION Instructions: Abdominal Pain, Adult, Jbyd-km-Fyiy Follow-Up: With: Address: When: Follow up with primary care provider Within 3 to 5 days DIAGNOSIS: 1:Fall; 2:Pelvic pain in female Patient Understands: Yes - Patient/family/caregiver verbalizes understanding of instructions given Comment: [facility] 12-18-2023 ED Note-Nursing Patient [...] from tubes and uterus years ago. Normal [facility] ED Patient Summaryon 024 ED Patient Summary [facility] - Emergency Department [address] [place] [address] PATIENT DISCHARGE INSTRUCTIONS Patient Information Name: BARBRA CLAROS Age: 28 Years Date of : 1995 Reason For Visit: Pelvic pain; FALL Arrival Time: 12/18/2023 16:55:10 Primary Care Physician: Provider, None Attending Physician: Anjel Yates MD Comment: Visit Diagnosis: Diagnoses This Visit Fall (W19.XXXA) Pelvic pain ([id number]) Pelvic pain in female (R10.2) The Pharmacy at [facility] is open Monday through Monday from 9A [...] alcohol and/or drug addiction problems; contact the [facility] 09/01 Crisis Hotline -Text 5DBFH cb [phone]. If you received any narcotics, sedation, or [...] and treatment you received today in the [facility] Emergency Department were for an urgent problem and are not intended as complete care. It is important for you to follow up with a doctor, nurse practitioner, or physician?s certified surgical assistant for ongoing care. If your symptoms [...] so we can reach you if necessary. [facility] Emergency Department has provided you with a complete list of medications post discharge. Please inform your molybdenum steamer operator/provider of your visit and for further instruction [...] Education Abdominal Pain, Adult Follow-up with your CAR SERVICER review this emergency department visit and for [...] these instructions at home: Medicines ? Take lwuk-nyk-feicoqu and prescription medicines only as told by your doctor. ? Do not take medicines that help you poop (laxatives) unless told by your doctor. General i (more content not included)... [facility] Extra Greenon 12-18-2023 Tube Collected Yes Invalid Interpretation Code [facility] Comment on above: Performed By: #### 1 [id number], [id number], [id number], 31420802, 5119304244, 3667279 #### [facility] (DEFAULT) [address] [place] [address] UA Aswrd6wm 12-18-2023 UA Bacteria Trace [facility] Comment on above: Order Comment: Urina lysis Microscopic order added on by Ingeny Expert Rules system. Performed By: #### 5 [id number], [id number] ####[facility] (DEFAULT)[address] [place] [address] UA RBC 3-5 [facility] Comment on above: Order Comment: Urina lysis Microscopic order added on by In[employer] Expert Rules system. Performed By: #### 5 [id number], [id number] ####[facility] (DEFAULT)[address] [place] [address] UA Squam Epi Few [facility] Comment on above: Order Comment: Urina lysis Microscopic order added on by Ingen[employer] Expert Rules system. Performed By: #### 5 [id number], [id number] ####[facility] (DEFAULT)[address] [place] [address] UA WBC 0-2 [facility] Comment on above: Order Comment: Urina lysis Microscopic order added on by In[employer] Expert Rules system. Performed By: #### 5 [id number], [id number] ####[facility] (DEFAULT)[address] [place] [address] UA w Culture if Ind Standard on 12-18-2023 Breakpoint UA Normal [facility] Comment on above: Performed By: #### 5 [id number], [id number] ####[facility] (DEFAULT)[address] [place] [address] 32177 Color (U) Yellow Normal [facility] Comment on above: Performed By: #### 5 [id number], [id number] ####[facility] (DEFAULT)[address] [place] [address] 19694 Culture? Not Indicated Invalid Interpretation Code [facility] Comment on above: Result Comment: Resu lt created by rule GL_MAGR_ADD_UA_CULT Result created by rule GL_MAGR_ADD_UA_CULT Result created by rule GL_MAGR_ADD_UA_CULT1 Performed By: #### 5 [id number], [id number] ####[facility] (DEFAULT)[address] [place] [address] Glucose (U) [Mass/Vol] Negative [facility] Comment on above: Performed By: #### 5 [id number], [id number] ####[facility] (DEFAULT)[address] [place] [address] Ketones Ql (U) Negative [facility] Comment on above: Performed By: #### 5 [id number], [id number] ####[facility] (DEFAULT)[address] [place] [address] 70229 Micro? Indicated Invalid Interpretation Code [facility] Comment on above: Result Comment: Resu lt created by rule GL_MAGR_ADD_UA_MICRO Performed By: #### 5 [id number], [id number] ####[facility] (DEFAULT)[address] [place] [address] 84748 UA Bilirubin Negative Normal [facility] Comment on above: Performed By: #### 5 [id number], [id number] ####[facility] (DEFAULT)[address] [place] [address] 97627 UA Blood SMALL Abnormal NEGATIVE [facility] Comment on above: Performed By: #### 5 [id number], [id number] ####[facility] (DEFAULT)[address] [place] [address] 73759 UA Clarity CLEAR Normal CLEAR [facility] Comment on above: Performed By: #### 5 [id number], [id number] ####[facility] (DEFAULT)[address] [place] [address] 78309 UA Leuk Est Negative Normal NEGATIVE [facility] Comment on above: Performed By: #### 5 [id number], [id number] ####[facility] (DEFAULT)[address] [place] [address] UA Nitrite Negative Normal NEGATIVE [facility] Comment on above: Performed By: #### 5 [id number], [id number] ####[facility] (DEFAULT)[address] [place] [address] UA pH 6.0 Normal 5-8 [facility] Comment on above: Performed By: #### 5 [id number], [id number] ####[facility] (DEFAULT)[address] [place] [address] UA Protein Negative Normal NEGATIVE [facility] Comment on above: Performed By: #### 5 [id number], [id number] ####[facility] (DEFAULT)[address] [place] [address] UA Spec Grav 1.010 Normal 1.001-1.035 [facility] Comment on above: Performed By: #### 5 [id number], [id number] ####[facility] (DEFAULT)[address] [place] [address] UA Urobilinogen 0.2 mg/dL Normal 0.2-1.0 [facility] Comment on above: Performed By: #### 5 [id number], [id number] ####[facility] (DEFAULT)[address] [place] [address] Urine Source Clean Catch Normal [facility] Comment on above: Performed By: #### 5 [id number], [id number] ####[facility] (DEFAULT)[address] [place] [address] CBCon 11-28-2023 Erythrocyte distribution width (RBC) [Ratio] 14.6 % High 11.8-14.4 [facility] Comment on above: Performed By: #### C DP #### [facility] [address] [place], [place] [address] Special Librarian: Lakhwinder Tim MD Hematocrit (Bld) [Volume fraction] 35.5 % Low 36.3-47.1 [facility] Comment on above: Performed By: #### C DP #### [facility] [address] [place], [place] [address] Special Librarian: Lakhwinder Tim MD Hemoglobin (Bld) [Mass/Vol] 11.3 g/dL Low 11.9-15.1 [facility] Comment on above: Performed By: #### C DP #### [address] [address] Special Librarian: Lakhwinder Tim MD MCH (RBC) [Entitic mass] 27.3 pg Normal 25.2-33.5 [facility] Comment on above: Performed By: #### C DP #### [address] [place], [place] 3[address] Special Librarian: Lakhwinder Tim MD MCHC (RBC) [Mass/Vol] 31.8 g/dL Normal 28.4-34.8 [facility] Comment on above: Performed By: #### C DP #### [address] [place], [place] [address] Special Librarian: Lakhwinder Tim MD MCV (RBC) [Entitic vol] 85.7 fL Normal 82.6-102.9 [facility] Comment on above: Performed By: #### C DP #### [address] [place] [address] Special Librarian: Lakhwinder Tim MD NRBC Automated 0.0 per [address] [facility] Comment on above: Performed By: #### C DP #### [facility] [address] [place], [place] 8834383 Special Librarian: Lakhwinder Tim MD Platelet mean volume (Bld) [Entitic vol] 10.2 fL Normal 8.1-13.5 [facility] Comment on above: Performed By: #### C DP #### [facility] [address] [place], [place] 7406383 Special Librarian: Lakhwinder Tim MD Platelets (Bld) [#/Vol] 279 10*3/uL Normal 138-453 [facility] Comment on above: Performed By: #### C DP #### [facility] [address] [place], [place] 3867[address] Special Librarian: Lakhwinder Tim MD RBC (Bld) [#/Vol] 4.14 10*6/uL Normal 3.95-5.11 [facility] Comment on above: Performed By: #### C DP #### [address] [place] [address] Special Librarian: Lakhwinder Tim MD WBC (Bld) [#/Vol] 6.3 10*3/uL Normal 3.5-11.3 [facility] Comment on above: Performed By: #### C DP #### [address] [place], [place] 6[address] Special Librarian: Lakhwinder Tim MD Vaginitis DNA Probeon 2023 Anca Negative Normal NEG [facility] Comment on above: Result Comment: for Anca sp. Method of testing is a DNA probe intended for detection and identification of Anca species, Gardnerella vaginalis, and Trichomonas vaginalis nucleic acid in vaginal fluid specimens from patients with symptoms of vaginitis/vaginosis. Performed By: #### C P, LIP, CDP #### [facility] [address] [place], [place] 244[address] Special Librarian: Lakhwinder Tim MD Gardnerella Positive Abnormal NEG [facility] Comment on above: Result Comment: for Gardnerella vaginalis Performed By: #### C P, LIP, CDP #### [facility] [address] [place] [address] Special Librarian: Lakhwinder Tim MD Trichomonas Negative Normal NEG [facility] Comment on above: Result Comment: for Trichomonas Vaginalis Performed By: #### C P, LIP, CDP #### [facility] [address] [place] [address] Special Librarian: Lakhwinder Tim MD Source .VAGINAL SWAB Normal [facility] Comment on above: Performed By: #### C P, LIP, CDP #### [facility] [address] [place] [address] Special Librarian: Lakhwinder Tim MD CT ABDOMEN PELVIS W [...] 11/27/23 Edited Result - FINAL Normal [facility] Basic Metabolic Profon 11-25 Anion gap [Moles/Vol] 8 mmol/L Low 9-17 [facility] Comment on above: Performed By: #### U OSMINO, UAX #### [facility] [address] [place] [address] [place] [address] Special Librarian: Lakhwinder Tim MD BUN/CRE Ratio 18 Normal 9-20 [facility] Comment on above: Performed By: #### U OSMINO, UAX #### [facility] [address] [place] [address] [place] [address] Special Librarian: Lakhwinder Tim MD Calcium [Mass/Vol] 8.5 mg/dL Low 8.6-10.4 [facility] Comment on above: Performed By: #### U OSMINO, UAX #### [facility] [address] [place] [address] [place] [address] Special Librarian: Lakhwinder Tim MD Chloride [Moles/Vol] 101 mmol/L Normal 98-107 [facility] Comment on above: Performed By: #### U OSMINO, UAX #### [facility] [address] [place] [address] Special Librarian: Lakhwinder Tim MD CO2 [Moles/Vol] 28 mmol/L Normal 20-31 [facility] Comment on above: Performed By: #### U OSMINO, UAX #### [facility] [address] [place] [address] Special Librarian: Lakhwinder Tim MD Creatinine [Mass/Vol] 0.6 mg/dL Normal 0.5-0.9 [facility] Comment on above: Performed By: #### U KARINA UAX #### [facility] [address] [place] [address] Special Librarian: Lakhwinder Tim MD GFR/1.73 sq M.predicted among non-blacks MDRD (S/P/Bld) [Vol rate/Area] mL/min/{1.73_m2} Normal >60 [facility] Comment on above: Result Comment: These [...] renal tubular secretion. Performed By: #### U KARINA UAX #### [facility] [address] [place] [address] [place] [address] Special Librarian: Lakhwinder Tim MD Glucose [Mass/Vol] 88 mg/dL Normal 70-99 [facility] Comment on above: Performed By: #### U KARINA UAX #### [facility] [address] [place] [address] Special Librarian: Lakhwinder Tim MD Potassium [Moles/Vol] 3.7 mmol/L Normal 3.7-5.3 [facility] Comment on above: Performed By: #### U KARINA, UAX #### [facility] [address] [place], [place] [address]83 Special Librarian: Lakhwinder Tim MD Sodium [Moles/Vol] 137 mmol/L Normal 135-144 [facility] Comment on above: Performed By: #### U MICAO, UAX #### [facility] [address] [place], [place] [address]83 Special Librarian: Lakhwinder Tim MD Urea nitrogen [Mass/Vol] 11 mg/dL Normal 6-20 [facility] Comment on above: Performed By: #### U MICAO, UAX #### [facility] [address] [place], [place] 9[address]83 Special Librarian: Lakhwinder Tim MD CBC with Diffon 11-26-2023 Abs. Basophil <0.03 Normal 0.00-0.20 [facility] Comment on above: Performed By: #### U MICAO, UAX #### [facility] [address] [place] [address] [place] [place], [place] 100[address]83 Special Librarian: Lakhwinder Tim MD Abs.Imm.Granulocyte <0.03 Normal 0.00-0.30 [facility] Comment on above: Performed By: #### U MICAO, UAX #### [facility] [address] [place] [address] Dr[address] [place], [place] 8193183 Special Librarian: Lakhwinder Tim MD Abs.Neutrophil (Seg) 4.02 k/uL Normal 1.50-8.10 [facility] Comment on above: Performed By: #### U MICAO, UAX #### [facility] [address] [place], [place] 23[address]83 Special Librarian: Lakhwinder Tim MD Basophils/100 WBC (Bld) 0 % Normal 0-2 [facility] Comment on above: Performed By: #### U MICAO, UAX #### [facility] [address] [place], [place] 16[address]83 Special Librarian: Lakhwinder Tim MD Eosinophils (Bld) [#/Vol] 0.20 10*3/uL Normal 0.00-0.44 [facility] Comment on above: Performed By: #### U MICAO, UAX #### [facility] [address] [place], [place] 6680283 Special Librarian: Lakhwinder Tim MD Eosinophils/100 WBC (Bld) 3 % Normal 1-4 [facility] Comment on above: Performed By: #### U MICAO, UAX #### [facility] [address] [place], [place] 3145183 Special Librarian: Lakhwinder Tim MD Erythrocyte distribution width (RBC) [Ratio] 14.6 % High 11.8-14.4 [facility] Comment on above: Performed By: #### U OSMINO, UAX #### [address] [place], [place] 444[address]83 Special Librarian: Lakhwinder Tim MD Hematocrit (Bld) [Volume fraction] 33.2 % Low 36.3-47.1 [facility] Comment on above: Performed By: #### U OSMINO, UAX #### [address] [place], [place] [address]83 Special Librarian: Lakhwinder Tim MD Hemoglobin (Bld) [Mass/Vol] 10.8 g/dL Low 11.9-15.1 [facility] Comment on above: Performed By: #### U MICAO, UAX #### [facility] [address] [place] [address] Dr[address] [place], [place] 4403183 Special Librarian: Lakhwinder Tim MD Immature granulocytes/100 WBC (Bld) 0 % Normal 0 [facility] Comment on above: Performed By: #### U MICAO, UAX #### [facility] [address] [place] [address] Special Librarian: Lakhwinder Tim MD Lymphocytes (Bld) [#/Vol] 2.70 10*3/uL Normal 1.10-3.70 [facility] Comment on above: Performed By: #### U KARINA UAX #### [address] [place], [place] 5084283 Special Librarian: Lakhwinder Tim MD Lymphocytes/100 WBC (Bld) 36 % Normal 24-43 [facility] Comment on above: Performed By: #### U KARINA, UAX #### [address] [place], [place] 1477883 Special Librarian: Lakhwinder Tim MD MCH (RBC) [Entitic mass] 27.3 pg Normal 25.2-33.5 [facility] Comment on above: Performed By: #### Josesito COLLINS, UAX #### [address] [place], [place] 3287183 Special Librarian: Lakhwinder Tim MD MCHC (RBC) [Mass/Vol] 32.5 g/dL Normal 28.4-34.8 [facility] Comment on above: Performed By: #### Josesito COLLINS UAX #### [address] [place], [place] 822[address]83 Special Librarian: Lakhwinder Tim MD MCV (RBC) [Entitic vol] 84.1 fL Normal 82.6-102.9 [facility] Comment on above: Performed By: #### U KARINA, UAX #### [address] [place], [place] 7335483 Special Librarian: Lakhwinder Tim MD Monocytes (Bld) [#/Vol] 0.64 10*3/uL Normal 0.10-1.20 [facility] Comment on above: Performed By: #### U OSMINO, UAX #### [address] [place] [address] Special Librarian: Lakhwinder Tim MD Monocytes/100 WBC (Bld) 8 % Normal 3-12 [facility] Comment on above: Performed By: #### U MICAO, UAX #### [facility] [address] [place], [place] 4734683 Special Librarian: Lakhwinder Tim MD Neutrophil (Seg) 53 % Normal 36-65 [facility] Comment on above: Performed By: #### U MICAO, UAX #### [facility] [address] [place], [facility] Special Librarian: Lakhwinder Tim MD NRBC Automated 0.0 per [address] [facility] Comment on above: Performed By: #### U MICAO, UAX #### [facility] [address] [place], [place] 27[address]83 Special Librarian: Lakhwinder Tim MD Platelet mean volume (Bld) [Entitic vol] 10.2 fL Normal 8.1-13.5 [facility] Comment on above: Performed By: #### U MICAO, UAX #### [address] [place], [place] 3026783 Special Librarian: Lakhwinder Tim MD Platelets (Bld) [#/Vol] 253 10*3/uL Normal 138-453 [facility] Comment on above: Performed By: #### U MICAO, UAX #### [facility] [address] [place] [address] [place] [place], [place] 6363883 Special Librarian: Lakhwinder Tim MD RBC (Bld) [#/Vol] 3.95 10*6/uL Normal 3.95-5.11 [facility] Comment on above: Performed By: #### U MICAO, UAX #### [facility] [address] [place], [place] 3140[address] Special Librarian: Lakhwinder Tim MD WBC (Bld) [#/Vol] 7.6 10*3/uL Normal 3.5-11.3 [facility] Comment on above: Performed By: #### U MICAO, UAX #### [facility] [address] [place] [address] Special Librarian: Lakhwinder Tim MD Magnesiumon 11-26-2023 Magnesium [Mass/Vol] 2.0 mg/dL Normal 1.6-2.6 [facility] Comment on above: Performed By: #### U MICAO, UAX #### [facility] [address] [place], [place] 3695183 Special Librarian: Lakhwinder Tim MD Urinalysis w/ Microon 2023 Epithelial cells LM Ql (Urine sed) 0 TO 2 Normal 0-25 [facility] Comment on above: Performed By: #### C P, LIP, CDP #### [address] [place], [place] [phone] Special Librarian: Lakhwinder Tim MD Mucus Strands 1+ Abnormal NONE [facility] Comment on above: Performed By: #### C P, LIP, CDP #### [facility] [address] [place], [place] [phone] Special Librarian: Lakhwinder Tim MD Urine RBC's 0 TO 2 Normal 0-2 [facility] Comment on above: Performed By: #### C P, LIP, CDP #### [facility] [address] [place], [place] [phone] Special Librarian: Lakhwinder Tim MD Urine WBC's 0 TO 2 Normal 0-5 [facility] Comment on above: Performed By: #### C P, LIP, CDP #### [facility] [address] [place], [place] [phone] Special Librarian: Lakhwinder Tim MD Bilirubin, SemiQt,Ur Negative Normal NEG [facility] Comment on above: Performed By: #### C P, LIP, CDP #### [facility] [address] [place] [address] Special Librarian: Lakhwinder Tim MD Blood, Urine Negative Normal NEG [facility] Comment on above: Performed By: #### C P, LIP, CDP #### [facility] [address] [place], [place] [phone] Special Librarian: Lakhwinder Tim MD Clarity (U) Clear Normal CLEAR [facility] Comment on above: Performed By: #### C P, LIP, CDP #### [facility] [address] [place], [place] [phone] Special Librarian: Lakhwinder Tim MD Color (U) Yellow Normal YEL [facility] Comment on above: Performed By: #### C P, LIP, CDP #### [address] [place], [place] [id number] Special Librarian: Lakhwinder Tim MD Glucose Ql (U) Negative Normal NEG [facility] Comment on above: Performed By: #### C P, LIP, CDP #### [facility] [address] [place] [address] [place] [address] Special Librarian: Lakhwinder Tim MD Ketones Ql (U) Negative Normal NEG [facility] Comment on above: Performed By: #### C P, LIP, CDP #### [facility] [address] [place] [address] [address] [place], [place] 0361283 Special Librarian: Lakhwinder Tim MD Leukocyte esterase Test strip Ql (U) Negative Normal NEG [facility] Comment on above: Performed By: #### C P, LIP, CDP #### [facility] [address] [place], [place] [phone] Special Librarian: Lakhwinder Tim MD Nitrite,Ur Negative Normal [facility] Comment on above: Performed By: #### C P, LIP, CDP #### [facility] [address] [place], [place] 2478683 Special Librarian: Lakhwinder Tim MD PH,Ur 6.0 Normal 5.0-9.0 [facility] Comment on above: Performed By: #### C P, LIP, CDP #### [facility] [address] [place], [place] [phone] Special Librarian: Lakhwinder Tim MD Protein Ql (U) Negative Normal NEG [facility] Comment on above: Performed By: #### C P, LIP, CDP #### [facility] [address] [place], [place] 8[address]83 Special Librarian: Lakhwinder Tim MD Spec. [place],Ur >1.030 High 1.010-1.020 [facility] Comment on above: Performed By: #### C P, LIP, CDP #### [address] [place], [place] 4897683 Special Librarian: Lakhwinder Tim MD Urobilinogen,Ur Normal Normal 0.0-1.0 [facility] Comment on above: Performed By: #### C P, LIP, CDP #### [address] [place], [place] [phone] Special Librarian: Lakhwinder Tim MD Surgical Pathology Reporton 11-20-2023 Surgical Pathology Report (NOTE) Path Number: [id number] -- Diagnosis -- UTERUS AND CERVIX, HYSTERECTOMY: - SECRETORY PHASE ENDOMETRIUM. - BENIGN CERVIX WITH NO SIGNIFICANT PATHOLOGIC ABNORMALITY. Sayra Olivares Electronically Signed Out /11/22/2023 Clinical Information Pre-Op Diagnosis: MENORRHAGIA WITH REGULAR CYCLE; PELVIC PAIN; ADENOMYOSIS; PELVIC CONGESTION SYNDROME Operative Findings: UTERUS AND CERVIX Operation Performed: HYSTERECTOMY VAGINAL LAPAROSCOPIC ROBOTIC ASSISTED POSSIBLE BILATERAL SALPINGO-OOPHORECTOMY, POSSIBLE LAPAROSCOPIC COLPOPEXY kb Source of Specimen A: UTERUS AND CERVIX Gross Description BARBRA CLAROS UTERUS AND CERVIX Received in formalin is [...] No further masses or lesions are identified. Spreader sections are submitted in 4c as follows: 1 anterior cervix 2 posterior cervix 3 anterior endomyometrium 4 posterior endomyometrium. tm Kay Saucedo/sandra2:11/21/2023 Microscopic Description Microscopic examination performed. Processing Lab: [address] [id number] Interpretation Performed at [address] [phone] SURGICAL PATHOLOGY CONSULTATION Patient Name: BARBRA CLAROS [facility] Rec: [id number] [facility] ANATOMIC PATHOLOGY [address] [place] [phone] [facility] Coding Summaryon 10-25-2023 Coding Summary HTMLBase 64 ZsdquqlaNBu8vLn+PGhlYWQ+P N2BNJXzQ83mjUZnpC2sU5XXRQ lOSywgQVBQTElOSyIgbmFtZT1 kaXNjZXJu IC8+TN0oBFQnPhhiyHZoc1P2b UA7G72dky1hDWulkYW1FUWvXd Wckcvcx1yhwIa3GFidJzqcMmQ t BRCgdD42UGV4lS01Xc37yUCxt OCjd1xcbIj4YhBwDZJpWMH2sR leQTzvv5AsJNQpU15zxYOah1T 6 DFJeoNcxhAVoNcUncUJ4nR8xL Ttahrhrl3jegwzeJut4ms33pY Nyr1G1fYW2E8PthoH8SMBkuQK g ZgpcpIGBqC3zvoubh0yrlggzG vXnCFDeZSb2GSs5WBEnzWzbJc YoNN72HYR3PXLonhCpY1IeOYM s mOccWgC9g0Z1Ie4QY9USIslyR 1VNTUFSWTwvdGQ+UD10af87Y1 ThDrdsLhz3ACYoTKK8vHT9bT2 n TUHqDXmar6F1tZD9G8UotqKrq p1wa5apJXDhJClxG54rfWIye3 W4JOYkgJT1KIPsfUcqWwLtaW6 3 Oyc+AGOdjHlxz3FtNxqfv5mbx 9hvzDy2VhunMVSgjgDdgPlqNE L9l6CqOq8fVAZkqNR7yKG1xE7 i BsBiHfZ9GThfP793CwXrfBEmJ lngM26iP4FzqPH+ICOwTdm6WS LlwQlhQZ9fC8YlJNDgkoasfJY m hZieIC6zNKBelwudWOLxrK7yP HAzJ3v2WlGhShQ0CXgyQ8YhNF AvfkbdIu08qI9iJrZsXzF8VNu u L5XxyhK6HEOcoGWsVBsrJTF9Y 37yj9A7ISAhIIHyDRJ6tDT6gQ 1hbGlnbjogbGVmdDsgdmVydGl j ZVkyHVjmI143GIQnlXaoZeQvO GluZyBEYXRlOiAgMDUvMDgvMj AyNDwvdGQ+JKHyPOC2hAldPXM n mAYdANvdOi5tiQzdwUnoUC8eV SKnohshYYKsdR1uIZTmkGWwzF bkSU5mEXVuozthh343IbPbDPG 0 GSDoqTNjN0GdxW8iKxTvLWTaN PJwI4QmjGYeGKtgE716BUkvUs P2VGUqpsBgW0OtCZWhiFwwHzV 0 k8T9Ml6Xk6OxjebbH3WhlJZwJ jXoDmvlYZg5K2OtMhsabSP+PC 46GEWoEU55MTd5ENR3dUwhMQf i GBHeJ5GhtA3rYqUyINHpULLbT yc+PHRhYmxlIHdpZHRoPScxMD DfKuMiqFtqKP3zWs2cBJQtMWW v mUfpbJXnAoJdj2cyQEQhTGgoM B5fqBenF5LliAV8AFBwa9i1Tl 81I65rT2HtlRD+JNGgcNQ6jXI 0 jG7hHrNyRkM8VWlsL642JqRdu CTvYpilt6ujv7wqrOh7TeW8AJ DsuzBgiNonMGB2i7BgPw53A51 s IHdpZHRoPSIxNSUiIHZhbGlnb m6qtU6mVj9+YDOkpPT4wIJ8xI 2nKrDbGaW7AMzrM144UlBydIC v Mzswv9tcb0pdlLs9IrIoHQSwm bHmpEtqVQA1t5HwUf75A9GwyV kww9FoOxn4ct39lDTmz2G3oFO 9 J3ZjBIZhywfjtUYaoXjzDZ8xW SPgjmbgFKKorZ2jAQUrE3h7Qv DcOpI4UZyiY2QltaX9YALsfDT g IGMiyVUIpW6ofigtx3yvqdkoD cQkFORuMWm1UCk2EELtuYceLm ZbUIO4UeQ7CIL9hAUgxC3rsIm n jumcxM5tFls+DZG7lLHjwIUGM M8aUsxmuWZ+GCXlHFG2qKisZN drDEFfkD2tVCUxW6w8DqNaKkM 1 WHibK1IhufV8ZYPcqNOfRCQwh IUOnP7tcgqoh4hmyvnvMbMcSA MnCNu2XVy8WEKhbXasGiKdFLK 0 IuL1HYM4uZYmbI4ddVrunuvva G9wOyc+SafiaDjrASY4VSe8U6 DtTat7OBMqtLijQL7fyZJtKUp u Zl8lkEvwnCvfST5dURXnkmhkc 317NxDtf4zmZAPusDErBOqdRJ B2T01nw6R7FKCwXXUjNGY7kTG 4 qN0waDuaotejtENsgOzhpdZbu NyrVGsxNTnlE220RDLstMjwQd CtCQu9Z3SpVkq3ELLhdMkoXZ3 n mQKjIXpbBc4syQhssCxbYA4qH WEuaqkbk740CaYdr2uzRLOgdE ZkQJvqHTK7N00oz2Z5XTWnXSR w FIQ6sIR0yQ7pzPapcatjaPFyr JpttkTwnVavSGyvDObeK100ZD PdeNqqJqPioEo7M9OcTow1WAM z rPizUB5vmDDaNAymSz9tdVflz WpkWZ3lATJvwuzmy783HiUip1 hgGNGwcKCxTVieJVB4W31rw1G 6 ZSPhAXPeMNG5qVK6tN0jqNrrt jogbGVmdDsgdmVydGljYWwtYW qmU235ZSYrpEnhTaNikYwtvkU g LTobAZv9J4CuZcouuAN+PC90Y ZZhPQ91fZRqzVXdf3lzoYd7Vg BwVUQmQZB7kYxzLUkcl4JkAEB t U58ldWLfw7K0ZIEogTuggGPaF sObhMY8wA4pZQaxrcexy8lvrt fzTinnf1rdwe03yB68C72yYBa p ROJxILKsACPwRDGddNkfxg2oo G9wIi8+KZQimYR0rEC1bH2iFC FeZkX4QNirH101YcCliHFvLoz j y9mkh2bvlNp7TxK7BTPhqgKrv XlnTUI6i8HzJi30E25fABadLL WlKVRqNCAzIIJbaWjxnl9qoK7 w Ii8+EUDfsLB8tBL6nO7aEqEpS eV7DLcwM871OdXccYQoXnkxP9 2jA7QrpGX+AYObNim5YFOogFm s EC3raXVjWGflNa8jORY1KuFtE jAaGVxuC8GrDEPeccijxafylD D8FUKvTVCxeQ85Ql5wiObgBPF w zICWsZ4kixkyy9azufygJqUwV DRzRKj7IUa7WHCeiJiaCfGePF F9YcW4AXS0qBWykA9eiEzgxzp g bD8tQ4ApURDfbzwdZf59hJ5tV mKxPbA1FPbuGkt+S2cVP19NOW OFLCRMAK9LHRZJCFuHNqkclXT + XVXgKUA8kGcjPGvfVKFgqN1uS KErZ8j2PvDjIzR1IFosF0LuWK OircimQp27rJ2yZmJyKbM0TZi u O5IuqxF5CVRurLKlBVrjKAG1U 67cv8I5HLGgMSNxSXI9rKB8yN 1hbGlnbjogbGVmdDsgdmVydGl j MCkcZKyxX744IJCvkQftFcCaV aQ8FlW5NEN8S9CvFtb2SHCggG eiMC7fbLMgRJnmEe9vjBnloLj g LI0hUZCduvzmEYAhwQ1vCMOsf YEalKtnOH8jORGqyyunl388Qj EfIJB2JVObxMCdM5SodX1tSwL j CSIlKNFfY0DnqFFtBLrgF848Z OleDaT6GSKsdpPbP8PoWZIttN ygMiP3c8A0Kz1mOWEOYGZwhgb v dGQ+OFNiEGK3zBovCRezGBYds D1cTTIyV3s7YeMuAwO1XJtbJ3 HdOMUbcqzmAm66fH2uSkVmZxA 1 MWbpT4UdhpF4MPMbzGFsYOjaO MK6K39bm5G6CJAdSEQoFEV2bF T4wR7zwCzkntjjmWIkhGqpcjJ y tMdrYHptUIzaL644BBTuzNkjW kZFTUFMRTwvdGQ+ODSfLEV3gV hwVDcxQNNtbH9wUWEuY2j5ExH w DtE9VRhxO7TvFWVbyidgYc28s F6lHrQyFxG6PItmY3XzkgE1UH FbhCPgXGwmOLG9Q04wp3P6BSK w YAAiDEY2zHT8zH0irJbmlifri GVmdDsgdmVydGljYWwtYWxpZ2 43PKFcwRnfYw0JDE17MX82O1X y PjwvdGFibGU+PHRhYmxlIHdpZ FCdUVdeGTRiBgSqvQfhDG4fYm 9eAITsAFHbbZaawJNhBsTqe0x s GVKtASwqCM9pqDzdG2KxfHG7L TExe3h3Cp76I94nN6RkvPP+PG OydNH1pBV9uL5xOvOnZbX1OFm p Z865XrCeaJUnJkcey8rgr1qtk Sx2ZwHgCZMibxCetHckQSI3t2 YeBz47I78xFZomXTBcUNQnJOU i HTZppFhikv8lwR8lFq9+PGNvb OI5bYG6cS2pRmGuPyO0AFemK6 27WjHobJAfExswZ86dE9WboWV + MQTaIag6YOCjoIwoDA5rjIMhI MhjWy4kATA6SuBuNcOqVFyqB7 WpIRBpmilhjwfckWB0HVCqRET w gG76Pl1qlKqpHo5cRTVpBPX7N LNmyCZnX0VowL5kCqVjWPDhDY MsZ4HozFAxFQlmL888ANmeIjO 7 EZQkqgDkT8QiMWPkgEipOdB0e 5C4Op4EqGemsUDpNH6qGiSbRZ s5G9XsEgh6UUJusEwrRF2hfLW k LEptIi7gxFwtxHlhXL6nICUxk lbrm819HmOfz5hvKSDgqJDvJE dpGNC2N89ws5C1FYOtRZZnFHY 7 gIX8rH8xfDeiqwfxgYLjnKzim uDcvKixEMkwLDdzJ376JFTcpJ wnNkAKHak3P4AiCqo1CVWxtTa s QT7elZXqKZycQz8tyUysyZqcW E1fLNVhldehf438WaAsn4plYE UudUCoUNgtGWG0B72yi3U5GLY w TIRdLZB0yRZ3tR9xxPjxbpljp GVmdDsgdmVydGljYWwtYWxpZ2 86AHHbuBedHr4SBao7I7FqQbw 0 JTGylHdyIX3bmKZyHNycJh3hi AxzxDetWV9zYCTrfochj171Qo Pff6evDGAolXAaLJswKYY8K66 s j7Y0BGSaBNJmSDD2lHW2dO3eb GlnbjogbGVmdDsgdmVydGljYW seWOlxL393ZJJnjQoaVySwlRD y OjwvdGQ+HJ31ux95P3CzCfrfV wt8BFCdYXB8jEE3hW3dXFCnBR dfq5N0lXS7J8GwkaYedl1yt4k s YXB (more content not included)... Normal [facility] ED Clinical Summaryon 2023 ED Clinical Summary [facility] ? Urgent Care [address] [place] [id number] Clinical Summary PERSON INFORMATION Name: MARTIN CLAROSAmadeo YANCEY Age: 28 Years Sex: FEMALE : 1995 MRN: Acct#: Visit Reason: UC - Wrist Injury; RIGHT HAND, WRIST PAIN Arrival: 10/18/2023 09:49:58 Discharge: 10/18/2023 11:14:00 LOS: 000 01:25 Check In: 10/18/2023 09:49:58 Checkout: 10/18/2023 11:14:00 Address: [address] [place] [address] PCP: Provider, None PROVIDER INFORMATION Provider Role Assigned Unassigned Dalila Cotter ED Nurse 10/18/2023 09:52:49 10/18/2023 10:38:20 Juan Santillan PA-C ED PA 10/18/2023 09:53:30 Tova Parsons LOGGING ENGINEER Nurse 10/18/2023 10:44:12 VITALS INFORMATION Vital Sign [...] with Orthopedic With: Address: When: Provider, Gerda [address] [place], [place] [id number] DIAGNOSIS: 1:Right wrist sprain Patient Understands: Yes - Patient/family/caregiver verbalizes understanding of instructions given Comment: Normal [facility] ED Patient Summaryon 024 ED Patient Summary [facility] ? Urgent Care [address] [place], [place] [address] PATIENT DISCHARGE INSTRUCTIONS Patient Information Name: BARBRA CLAROS Age: 28 Years Date of : 1995 Reason For Visit: UC - Wrist Injury; RIGHT HAND, WRIST PAIN Arrival Time: 10/18/2023 09:49:58 Primary Care Physician: Gerda Ivan Attending Physician: Juan Santillan PA-C Comment: Patient Education With: Address: When: Follow up with Orthopedic With: Address: When: Provider, None [address] [place] [address] Wrist Sprain, Adult A wrist sprain is [...] care prov (more content not included)... Normal [facility] XR Wrist Complete Righton XR Wrist [...] MD 10/18/23 10:52 a Technologist: LT [facility] COVID-19, Rapidon 08-15-2023 SARS-CoV-2 (COVID-19) RdRp gene MARICEL+probe Ql (Resp) Not detected Not Detected [facility] Comment on above: Rapid NAAT: [...] management decisions. Fact sheet for Healthcare Providers: https://www.fda.gov/media/936608/download Fact sheet for Patients: https://www.fda.gov/media/684009/download Methodology: Isothermal Nucleic Acid Amplification Specimen Description .NASOPHARYNGEAL SWAB [facility] Flu A/B Ag Detectionon 08-15 Flu A Ag Detection Negative Normal NEG [facility] Comment on above: Result Comment: for Influenza A Antigen Performed By: #### U KALLIE COLLINSX #### [facility] [address] [place] [address] Special Librarian: Lakhwinder Tim MD Flu B Ag Detection Negative Normal NEG [facility] Comment on above: Result Comment: for Influenza B Antigen. Performed By: #### U MICAO, UAX #### [facility] [address] [place] [address] Special Librarian: Lakhwinder Tim MD Portable XR Chest AP single viewon 08-15-2023 No acute process. [facility] EXAMINATION: ONE XRAY VIEW OF THE CHEST [...] acute process. IMPRESSION: No acute process. [facility] Radiology Study observation (narrative) [facility] Portable XR Chest AP single viewOrdered By: Yair Clinton on 08-15-2023 [facility] Work Phone: Rapid influenza A/B antigens on 08-15-2023 FLUAV Ag Ql (Unsp spec) Negative NEGATIVE [facility] Comment on above: for Influenza A Anti gen FLUBV Ag Ql (Unsp spec) Negative NEGATIVE [facility] Comment on above: for Influenza B Anti gen. [facility] EJJH-XnC-5am 08-15-2023 SARS-CoV-2 (COVID-19) RNA MARICEL+probe Ql (Unsp spec) Not detected Normal [facility] Comment on above: Result Comment: Rapid [...] management decisions. Fact sheet for Healthcare Providers: https://www.fda.gov/media/423480/download Fact sheet for Patients: https://www.fda.gov/media/114965/download Methodology: Isothermal Nucleic Acid Amplification Performed By: #### U MICAO, UAX #### [facility] [address] [place] [address] Special Librarian: Lakhwinder Tim MD XR CHEST PORTABLEon 08-15-19 [...] Clinton MD 08/15/[address] [facility] HCG, ,Urineon 07-25 Beta HCG ( test) Ql (U) Negative Normal NEG [facility] Comment on above: Performed By: #### U HCG #### [facility] [address] [place] [address] Special Librarian: Lakhwinder Tim MD , Urineon HCG ( test) Ql (U) Negative NEGATIVE [facility] Surgical Pathology Reporton 07-25-2023 Surgical Pathology Report (NOTE) Path Number: [id number] -- Diagnosis -- A. GASTRIC ANTRUM, BIOPSY: [...] cm in aggregate. Entirely 1cs. B. BARBRA CLARSO MID ESOPHAGUS BIOPSY Received in formalin is one lizama-white tissue fragment, 0.2 x 0.1 x 0.1 cm. Entirely 1cs. jj tm Merrick Umanzor M.D./kb2:07/26/2023 Microscopic Description A, B. Microscopic examination performed. Processing Lab: [address] Interpretation Performed at [place] [id number] SURGICAL PATHOLOGY CONSULTATION Patient Name: BARBRA CLAROS [facility] Rec: [id number] [facility] ANATOMIC PATHOLOGY [address] [place] [address] [facility] Coding Summaryon 06-22-2023 Coding Summary HTMLBase 64 MtwyyzwrOVs8zYv+PGhlYWQ+P S8HSOTyM50jpULwnC8eR1LJMF lOSywgQVBQTElOSyIgbmFtZT1 kaXNjZXJu IC8+AN4eRIWkRjqcyHOgr1N7x BW9A04rxj8rIAhgkNI2RYYlSr Rtgmrcc4tkqLh4ACsxMpqmHlC t GYTgxQ63HLZ0zS25Kp86pTKnu DGcm6uufNi9MwOiLDBxZOP7tB raFHhce1NaHXCuJ98zfXUxc7S 6 PQAorIyewFJuYzZhfGE5uH5oE Bfklolxj2kvbuozSye0ja18eY Hva4F6eFC1F8UwdiG7UVMlmVJ g EflqoLGYhQ4zzkypt4yfdmqdY iEyMVOqZSr1FUx9QFApaWjxXd XiQS41ZRC5QGIgxzFsC7YrTEJ s kHhmPeR9u8M3Qn0XR3FZAovoO 1VNTUFSWTwvdGQ+HE03yw94O5 GgCmirHjh9XOPyEJG9pZE7mQ1 n UWXiYKqbm1K9cDY0U1QanaGwh e5mq5neFPIeFXjbA44yfBCac0 G5OHScmVO7VBVnlQnaXxRetO1 3 Oyc+XACanVcpm6AaZjimw3ixe 9kznCv1WdoiCZUlxcFmfZeuFR O1d0FnSw7rNIKfxUX0lWZ1sM5 i ZuFyPsK7LVfwH780RsLshGGyF qcnQ99zV6WlfZD+DXBtTch3ZC CvvCfhGX5dK2NcNGPsvnbcaIE m yMycEO8sRKBadyzmMHTgnR7bK ETfK2f4BmQuSyD0ALxtY9GrOL FilxmfCr81uR0kRaPrWpD2YJz u Z6IkjhU1HCGlxETrOOkbEWO9G 70fk0Y1BKZfJDCaQNI0fVR7iL 1hbGlnbjogbGVmdDsgdmVydGl j POfsBKhfR917WQRhoKomYrTuL GluZyBEYXRlOiAgMDEvMDQvMj AyNDwvdGQ+IMJrNJB4cKvzFJY n fIHeGJmrGq9bsUzyrPqpCP8vK NIwosjnEJStyS6bYKTlpCVzwK tnAF3vOZCqdjjvr312CaVrDLX 0 IBHohUEkX7HmjW7cMyImUFYvA JTbX4HkxQYkOWzrN923ZVcbYu T7HSMzeuItW2BjILWmxVgsFoB 0 a0F5El9Pd3XjxypyG9KkdGHtZ oNtHskwRDv0F6TxBweyoUR+PC 23UFGyVQ72IUh1JVG0oEztATl i VASwD6LolR3dGaOwYMKrWVMuC yc+PHRhYmxlIHdpZHRoPScxMD XnWeLabFuaBP0xMq5bHKBzMBF v rCzsuMPkCoWxf7rnIZRjEUtgX D7guOfdJ0FobTL6OXPoe5h6Ls 31A71eC8PnuZF+ELEqaBA9bTG 0 jZ7mWbIoHdS9QLmdN656OzJhh LKySztvx3bnf6yvhXw3UoZ8BQ McabIoqObgFBS0j6KcRs72K09 s IHdpZHRoPSIxNSUiIHZhbGlnb u6ejM1gHq8+GAZgrJJ3qCE0sF 4hIeYyHkW1UGqwQ009LkCdnUD v Emjjz2mmb1yyhWo0HuJeLJKuq lFiwIeeBCP3k2GvUj11M8VbhA gje0FcXui4mk59bYMlf2C8uAQ 9 J1SxPBWqirxlfDZujWkiOX0dJ UGhvpnaQKIkrF5eOACyZ4q8Ar PzDpS9QBgdU8BiqpR1XNNidMN g GNEujMSNwJ5gtrffu8inhbgtF xHpTBNjMAb1QEf7CKDsxKqrAa EoLVI2FgD7HEV4oTGrqB2hlGc n mgcebC1bAca+DTQ0kAXolWBNG E4bZkzzjZD+DYXaAWG9wBcsIL fyUGFqeN9vOMSvP2s5WvXpKmO 1 VNmvT4JsytM4AAHwnNGgZCUqj YLKpQ0tpzacr3iwzsjnTdThVL DbIMp2ZBn8ONIrrBhkAhQpHMN 0 LmN0NDU3yICnvZ3yrPjcthntb G9wOyc+KroqfQwpNWG4KPm6C4 WjAkv1PVXvyUtnEA3jsUXlYJb u Af7dlKggaJldCU5eRZEdcodgh 556ZpRyp6yzUCPcaDLtCRwpTK R8J95xz3O7TPDvSINpQHD0tSC 4 rQ4nrTtcinnqgDWhxFbvzpQqy BimGFilHCbzE495JZStuViyDp QgWUf4K6HeCsk0RHScdLsbXB9 n bTXfCEdzBx0xlMgdzMdfMY2qT GQiqzobu487McLeg3kyOKNdiS RuDNyoDPU9T39hn6Z5JMEdMWQ w RZD4dRA4lD0kgZeslucggSUmo IowipKzmAsrSXmqCIjcG718TE TtfQbvOrRkzMm3J8XlUqu8VRH z bCtuPM8voKJnTLguPp9ngWjmr CrvFD2oDSKnsbicq932TqUvx6 weREFkfYCxPIhdLVQ1H68pz4J 6 HHHrODVhTRX6hNT1nT7haDjxb jogbGVmdDsgdmVydGljYWwtYW toW938PFVbhFppTpIamZwkjrT g ISapOZw1Q7LmBehtqZY+PC90Y ZUoTM53uMRdqXOag0grbZp9Yu FaUIVwEAG5nDgeSMypf7UeWSF t Q82oiHJeh8Q2FZYeqSfvoCCcE oLgaQW4mK5uDFxucbpiq3wikw kkJwewx2ansf98xG16A09iAPu p ZPMzYFOdBDSoEWQksVmczf6wj G9wIi8+YWRrhFA1oJW5qS4fNG PhPnK1XSrnM349VqJjtLZrEcx j i2atq0xetJo6JrY0JLMdxqEgw OwkJII0z2NlFs68N23aRMqoBS FvBJByFBJwTWYpyLrppg9kcH5 w Ii8+HQChkPP6fHI9wQ0mMcRgN uS0FTzhR067EkYlsOXoOociE1 9cM3PwzHQ+SIRkTmx9CQLdnEc s XR1hzFDbSYucMa2mGJG5LlJvV rLzXPjqS8KyBSTwdiiowumozH Q8BGWcYVWzoZ70By7svRayNFV w nYEOiF8wgudmr7fxladgIwOiL JQkKVy1UDn0ZPQumKogEhRhSQ K9JrQ3QQE7pXRunY3yiTsmgwg g uL3cC9KjWPPuphniDs40eN1iK mWhQfL9ZEwvGkv+J6zWY94PGI GGZOOKCO3RYHAXNIyWGlbzpCW + XOBbKZC3qSffVQbnLKQzcI3kT XKbG3c7EuKxHsC4KLxvR3FfQG YbraihKi10tQ0mTdKoUbB1SXk u I3EzzgN7MYLirQDlNVdyLSR9L 99de7X2WSXtRDGpFAF6dBQ4tD 1hbGlnbjogbGVmdDsgdmVydGl j AHrhCAblM513IGEpvEfiYvEoH jH3VcT6NQF2K3TfSoq9GKYheR pcPW4isUQoGAvoRb8psDoxhJf g UJ5hZWOsnpduACPssA0eFEVkp HLawUlaLI0cDTPljcmbs455Xf VsLQU1IDNcwCIlA2MzhR4kLeB j JGYbHQIyD7ZujFYsTQwmE748S GgdJuG6COUdddPoV0TlBMUcxM kkCqQ1w0Y4Rx9rTjSWGJJowge v dGQ+RODxKDJ8jKuhQUmeGIZrb V7yUHJkG4g3HeCkDyV7QXeuA3 UwFRGrnvqdFp35nD7sSvNzBmF 1 QRrlR4BvdhF9JEYltIAxAQhhE TN6I48jq4U8NNXvXOIsIFJ0wJ W7xK4qbKyeswcypBZewYwfulW y mBjoYGgiEIefD393MIBajDgfZ kZFTUFMRTwvdGQ+CHMsANY8bU apEHdlBSTqbV9tEZWnM2p7RnQ w AmZ0FKyvH6KjKIOyzvxwJh82q D0mZmWsDpW6BJpxN4MocdA1WC DphIDpKKsvWWQ6I44xg3S1WQK w EEIjTAG8gAK9cS9noEcqalxda GVmdDsgdmVydGljYWwtYWxpZ2 79XSSofWvfIjZbZAEvEM1qoEz v dGQ+QL71fv31U0YkPhfmDnl2P AFiVOZ6aMW2tN3tGNEbPDyak2 W9iOG2K4KxauBpbf2sh3otFAE z TQciK68vhQDmj3K5AJOsnWX3E WKstBljSjGtbF89Ark+PGNvbG phn3PbNslnp2nrz2bktYj4LwY w UUTeqtDmcShlWTE7a6FyNg99H 29sIHdpZHRoPSIzMCUiIHZhbG ucas5rnR4kGw2+LREdlDK0zTL 0 kJ8mJoVzLdE4YSzeO255ZbKdt OGuUowtp6ddv9njyFv4WsHrNK UhebIdtBkjONG0r4DtIz34D8E v kBlhr6MjSht4uy54xMEaf0I8t MS8T1XwGXDukdqnmJYtxBlkIK 1dGFRvcbbjWGWhjK4jCCDiX4g 0 WzOoKmF8MAaiS3FsamE9PFXtr UHbFKKfbIDCtA2xctzmj1jxqz szKvOnXTCgFZc6CXf5IBRrtLy u YnWhNNX0MiB7XFR7fKKymB9xx RknpunnbZ2cEem+FXw8y0bspW GlFL9byBT8KS01JF85mJFjt3E 5 iMS2R7XnZMGmdfxpubrqvLE9J JJyDMUscM16Mr8jgKhaQt3iIJ AoTZA3CMAjiNBoF4CiyP6fEqL j AYQaNQXiV3HtyWVxGVhgL753M VgqYuU5KDZiehUuB8YpIPMrbT vhBoL9c2T1Da2LAG68HM96NS2 8 sNRve9W8aIC1N8HkKQOkfqgcz ukedML3TZDrFIScbI49Ge0daH ziCz0cRAIoGVP4EBEmzYTnK4U v gJ2pWjPlBLZmYCRyS6WlbYAlZ RgtF022ZCjdLzQ7IEWtleOlB3 RcMBNcdSkwLdZ1a8S5Kk8KKo8 6 TR96OL67oCFcd4O7qKA4H7CeR PJvbdwqnajjzBA8MVIeTESskQ 05Wk6azOkhTe9rAUPrCJF4TZG p yPLfE8GkuQ8fEvAbVADkXSRlR 4HgtEYzHEwoB853OTkhEwP7GP DfmjSyJ6OnMJSwnAhgGiH1k6A 7 Ne6RTPufitm6B4BzPbgheTV+P U94MYEvNA29rDAlmXNrm3svgF f0IpWrXMWxBRR3xOeqRUyht5N k ZXI (more content not included)... [facility] Coding Summary HTMLBase 64 WbsblatjMNz2xQg+PGhlYWQ+P U5KBLKkL32cxJAfjD8rW0MOGS lOSywgQVBQTElOSyIgbmFtZT1 kaXNjZXJu IC8+JH8xPGAoXetqmLGtw4S3j KD7K13mtu4fOZzmdOR3PYAcSf Eivabad4dscMd1ZOcsZhjsMiR t IKNlvG87LPE7tA73Zu39yZVul LVbf2juqGp7HyMbDMKiDAF5jQ neOEyvb1JcQCBmN29noXYof8F 6 MOHetAtpuWDwTiOfxXZ0iC1qP Uzxkrtpi2mjfftnAqk2uv71mJ Jfc2C1uCC2X1MqasI6PLSelRI g PkllyZQYqZ1eqkcgr8nqvgtrP yLjUHLjPNc5UMy6KNKdjAwcVg RrPB40YLT4LECvhpRtK1RjNOI s nUmvTgF3i7A1Vy9UP7SELnntP 1VNTUFSWTwvdGQ+ON31xn37G1 JvKhdhNxw7FYQxVBJ2eFN8sS6 n XQTtKCyok4S3wYF1M0QyrmNbp m4wq8utEEKhACamI01xvBZyj4 L4TRVakUC4HOJtmGtrZiHzmC6 3 Oyc+BSUutBnko1CmHzjsm1zhx 8qdkCk1BsyyPZRybyEwjBrkWN H9b4ZaJk4kAFKqlWU8zLD6tT9 i VpQpIdB8ACaoH096UyXcuZPnN nsaF18sJ2ZwbYR+OINiRkj8YJ BhjIkjAU8qW5TlDVFclwcarBU m vZbmHK7vAKMpmwtpUTHhuX6vL AOiL2s0OpNoCdY3KSoxV8OrPO LubwyxJi04dJ3zVoXoVqC5PDh u N7LlvjC4WTGdwUEaNWvqKJU4R 49mo1V5DNAgSFRoNLL0aLY1sY 1hbGlnbjogbGVmdDsgdmVydGl j JLoxKEzbW540WXQwfWipBzBkL GluZyBEYXRlOiAgMDEvMDQvMj AyNDwvdGQ+CFAnMIV2wJqdGYY n lOTdNKrfMc4pyTfdyPzmEY0yT BPewkmxNUYigH3cBOXrbGAmuS hiPL3oINIbwxivd438OtCxCUM 0 HPKetPOvY0DykM9fBgQgGOClB QIvG7EuuWEcWZwpS240TBffUa G6NZEiphRnB8PvCRHzeCkyYlS 0 t2C2Pl4Gf7MorzyzW1XmuDKfX qZgThlcMXb7S5RhUifzpKL+PC 15KFCkZC52QZh1OQO3lFecBLo i KLVoY1NdkD0oMxPsDVQkXLNpJ yc+PHRhYmxlIHdpZHRoPScxMD CpSoFkgMqeFE4cHn2hLIPgWHY v jCkulDDrNpGdl9shEEFjXRpkZ J6bsIyeU0EhuDX9GNRuu4b3Ad 01I21xQ7PpoBN+ATFodKI3rSM 0 zI0tIjZgPyH3WShkY999ItTdv LAxNcawo6lch9uvaFd7IoF2TT XfmgJvfEtuQGH8l1XeYm27Z96 s IHdpZHRoPSIxNSUiIHZhbGlnb f7meN1nLi5+KBWhwMT3dIW9wP 9jGoMlFnT2ZTpzM432EeTmsND v Osjdk0loy7jkqQe7VgKaUMMku lEziOcxGNT2n7CqSc07B9IypQ uzo0IpYrj6qy37iFNta4M4yND 9 I2AiGPRfwbkddGNfdGynIZ8nU FRfudmkYRAbsX6bHXQrO6s7Rk YkBpL4JHweO1BrwbT0QHVnvQO g FSNgzVFQbB3gfyaat7pujcyuJ lMoAKJoDAc4LZw9GGSmaZktGm ShDMK4XsL8ZXX7vWHcjJ2bhMm n qitzoO7zKyo+ZPO6nYIwdIUKN V4cQpwhnXQ+BNXcFOF8nVqeRK zoUSVqoO1jCTGbI6b3McJbZcV 1 PVibN9JevzS8VFNufKFaCGIcb NPNrM6gxvsfv1zlqtreWpOlBW ElKOz7BSb1QCXejDnmLxAeKGO 0 XmX6ACB7oJEmqY5mrUjhmbgee G9wOyc+JppskRfnUFS3LYz2S5 KlTzm7PEWqnBffNM2bvLZrUNg u Bb1uyRjqeKrzOE5bWBCbrdbut 865JxLps1xsUKVftNQnDXusRT P4N37xi6X8RIXeVXQzMAJ9xCS 4 lK8hdHiymebazDDbbJbkbvOgp YnjHQrjENskV571UMOnsKbmBi LePUv5N8PgCrc3XHIzpIpmBZ5 n bXSmODnwRu6ylEhuxLckXY7wJ IPkqrmmt738EvYdz3siZTCucK EoBNecHOI3P60ns8G9QCEnQIP w WOF7yOT9hL4zvTnxzruynUItd XwyrmJguZxwAYqkXIdxJ464LC GteRvkHhHttLf9P0LtKyh8MWS z kKgsNN6ucTMcLNdcMz8mmSxic KdbIV6rUUVqharen124IiAdy3 gxAEEfcLNbQVqmDHP0Q68kv0B 6 SFVsRGXnEMW4iYN4dF7fxZavk jogbGVmdDsgdmVydGljYWwtYW vzS656XPBtqXxrXeOewLhbuuO g QUbbGSf0D0XwLtbplDA+PC90Y CPnUO17zEWqlCEmq9nnhXl9Dn CpIJHgLRM5gWtmIXabq5RrHEO t V37vrWGvv1B3VCEahFpnmDVaO kZnkYV4oX3nUJpxspoil5kzwt ndFuovy5rdek50gW72R56tRCh p JPCrYWEdKADtSOUmnNjllj8lz G9wIi8+MJHkvBH7iAV0iJ9yJI JoEtG4ZAxsP007ZcVblKEsXlq j g6mvq6upjNc1CoX8UNXnkhUrp ZlmXDZ0g7UeOy94Y71nKOqyZG ZrCWNnAOEwXZPjeQtrfr3reG3 w Ii8+WOWmtAE4jKF4tP5gPfOhD bB8ABqtW072MuLprFMlWhjnY1 3nS6JanXS+YTZdIin3JHXuyIl s QO5ksGQxQVguKp0vSJT5MeRgY yJhTDwdK3LaLIVrwyzgdzfgzO C9CVXpJAKgdR48Ta3pjOzeRCA w vWIQbT8pgftxe5vowldsDcGmM IOpOQa7TMz7VFKjuTdgFxGvCN E4TwU7ZDO0aYWayP6hpYmbqqx g iA3wU5VkRMRakrtqYe89iK9fD sBhKfO1THqaCwd+W6vOJ12TDF QYAWZWTI6QLFYABLcGFivkePH + VUWxPQT4iKikREvzXQObmY4zZ FWwF8h8SlGjLgS1JKamE7EfHU PbmqjyPt15kO8bXoZiHgI1AJv u G5UjvyM1RCMleRMmIAdlWCC8B 28hr8I4KBXsYXZhLQQ6sRF2oA 1hbGlnbjogbGVmdDsgdmVydGl j HAtaEJmmK649VLYosRbmYiTkK gC8XxC6IMD6K7QxUbt4TIZxqM yzII8dsYWuMPiuJx6aoZxxhZj g SG5sOAIheeybQXYsmK4xJLVoy TUebAvkRO6tZXNbwrtib953Bz MuCHW1VYNgoFNmU3QuhX1yItJ j KIPhFEKuU8WcdZQlVYqdG120V RlkNuJ7CAIlwpTeM6YgQFRrnD gkCwU9p6M4Uu1fUkFIGHXsxif v dGQ+IBZtDWV7ySytZSxsIIOqn R2rXUZzD0k1BaNpXtW2SUmoF0 XlQBBqdbwmVx05mV3kItIrAfS 1 WLvbI4KqvqL5YSAyzTPmEJyzK DU6J89gp6H5NEKfNOBuBXM4nG I4hM4foErhbbygnOMcpKpdjpE y jXaxLQopHLmsR648OPIxpXrbF kZFTUFMRTwvdGQ+UXHsZNB8cK acBTmhBLSfwV2uAOPaK2g6LeN w QnA2YPqzX9KwKCHrgcygFl58g Z5uNiAkEkH4EKfqN0QdgrM2CQ OsxBVuHUftQEL0U71pj9G0QLJ w NRPzVGK6iSQ9vY6prBrcrmzye GVmdDsgdmVydGljYWwtYWxpZ2 30KYElqQfbCqRpOVZiQZ4chXh v dGQ+RQ33pv26S2TbGszsByd1A CRfJYN9tBB3dC8hALZsRHzco3 V0gPA0P0IggjZxoo9nq5xcMZX z ACpkG29ucFXnv8S9CTXjjJA8F GYnhNrpVxPxzT63Ltb+PGNvbG gxm9QiYpxbt1qvy2llqXw8MaI w XWAomeDvhFlrLVN7x7XiBl68M 29sIHdpZHRoPSIzMCUiIHZhbG idlp4mkP6fVo0+NRRlqZM8oLY 0 gQ2tCjSjQaL8RTxzA943OaPdz GPfRnkgj6zyg4fulBk3UvGvGY LicfGpiVufYUS4k2DcVu05W0D v cMyep0UhUhx6ey84lEMcr3W7i PT8J4XwAAKmqcsvxYOtqScdYR 6eTJJrnggaINLyuE3tEVLdF1q 0 DmCjKbM7FFzfS6NoymO1LKSfx XZaSOSfvUCZnX5stkzbz8hhuk rsFfAkKBYmEHt0ZTi3QOIgbEn u AmWvVVW2ZtG9QDF8nTBmcG5rm WeimwxtdZ3dHqy+EZv0p9mxwB OzVJ0xqSQ3QI10VR41aNXzc3B 5 xPV7W3LxMAYcciijuuxjhXX3R BTpIPHwwA48Uf7zeOytKx8gHT BmPOV8RHHgpVWbZ2ZrbS0rNyS j NRFbEYLyW8UyuZCdKOjvH571S NbiUkU1YOPjlbUaF3MvVZCfxN rzQhP0h9U5Tl1ANM40KR32EE8 8 dDEgk6W1mKT1P9ZqYWWrwzrar murmOF5YRMdQWWyzP71Rn4twD haOs7mIDAcFIU2HPBxyLJeF4I v oH3zLcNcSYVyYQPbF3OtrIOcF KpiG023WTylAkU5JVDgrcEpE3 CiBPIkeCbgExX6g0B3Hr5DPt2 6 GX63EL10cWDnw9J8qMU5U9NcF YUwbgrttjgaaGB8PCQvNWTizM 41Kj5lbKvsMm7hPRBqYST2QSJ p dFYyJ7FeeE4gGlOsQOTcYJMdW 4BpdFVzLVltM086OKtaAhN3VS LrzyGwK5HdBPOliVkkVyM1v4V 7 Xh2SXEebyim5T2MwXyemjNX+P X41BQZhCT48nQAmgIOfm3vtkT d2AqSuEBTaCYL9eFliWDtqx7A k ZXI (more content not included)... [facility] Coding Summaryon 06-16-2023 Coding Summary HTMLBase 64 NesvnoleGDt9vNw+PGhlYWQ+P Y4KIWJeT28loOUdgF9dT5KJKS lOSywgQVBQTElOSyIgbmFtZT1 kaXNjZXJu IC8+NP5tIAHyEchpxWLnz9B8a YR9Z11jkb0lEUrizNX1WYVbAa Sbaygum9zrrNe6HWcrMdchTuQ t GCKlmQ44XZG7dA33Zv12kOVdx KRqj6phsGs3MjJxELJjXGT4xU ilBQqbv2ZzWSDnE55ayDUbm8N 6 FCQuiMiisUMvPhFtcWY5dZ9iT Eavlvbln3lymrbeNym6of11bZ Ndh3I6hVT2R3SqkxS7RKMwlJY g ZwizqUPUwM7alkora3wkgcgmI kRbPFUmVXy5ACn5TOKulSlrPt StLI28TVC3TWBwlpPrH4DxGKS s vFroAwV0j0Z4Kp6NI7ECBgepH 1VNTUFSWTwvdGQ+JW51tl76S5 VjBvvaAtg4TQTcWAP9wSH8oQ6 n TTXzAOwtp2T0uQD2G9ShjeZje l4vx5viEAPyRYqbP93blVCtj5 J0BOYawMD5INRekOxbHtKsnM8 3 Oyc+TOWqsApsr0ZuTojtz5gds 0lxmOh1MumiFSPztfMuwUklTT T4e4InAm6sZKKjdVW2bIR5oZ1 i YuTgVvV4XMnxT116EwEjfDBrA dfpF34pR2BihNK+LIIbArm2LU CogIqpIX6sM9DeQUYnvneisDR m bOjiHU6yYDNdatlrYSMlcG2eB VVqE5u6McJcDjC4FSzmD7CoRW PelptjOf95vK7wHxDnFsT8PZo u V7HklzP2CFZgsTLyIUwhNLR2W 84sa3H0JARlVLTbDAT9tNJ6pC 1hbGlnbjogbGVmdDsgdmVydGl j SXawTEqlH497WOOlzAhdVgKpP GluZyBEYXRlOiAgMTIvMjkvMj AyMzwvdGQ+MCVcBVO9xFsnALM n kVPyUTtuLe9dhXpitEhgCS6cH GVnibulOZWxbX1pJENbnZGhlY wlCQ6aWGFcqkjln618DnFhLGD 0 VEClcNZlJ2ImwO0vLhLtQXByZ UBsP1SwzCBkACigN725MMuxBm I7YLGgpkTgT3WtXPYirZnwIoO 0 q7D6Bm5Bt9TfakhnT9BemSNlG qCeQgisGGd9J5AxCixkwES+PC 53GXKoCD92SQg5XJG4rSrrQZz i JTFmB0QboX7jLzQxZEIjZRSeO yc+PHRhYmxlIHdpZHRoPScxMD FmYeChuMgkGQ9aXt5tVSZoJWS v kTgbqJWkYrVnu0hkLJYoQGvoX N7yaPoyE7SogYS2ZHNwf5g8No 43B66sN8InzBY+RCGbkGS0jRJ 0 rC8vNdJqOiH8YXfiA534PcAxb ADqAgkjl5bof1yivAj9YhL6ZA DaifOfyJlfIHV6v3PeMg25N88 s IHdpZHRoPSIxNSUiIHZhbGlnb a4tcF1sQw6+JKUinEI1hMS6aG 3kZqPqNpT9EDigG201CnSdeIN v Zsubz7lpx8jlxCb0VjCdRAJkg pUdmIzeORV7f5BiJn81U5SvwW jlh3HoIrh3im38sDVgr4B5zGR 9 P5VsGEPohwglqKCmdYsjNX4sY WNbykbfYJNwmF7hXOHsZ8n4Dc OfFnR1UQkpN1NnthA3WQCftTB g EFGhlYUGsC6cyrqjq7zshjjyS dAfLRVnAPt6BKt5KGVmsRoxXc BpRTA9CqE4SJU2aPFihT0wuSm n zwvbdS1qZwn+VPM7lOYpqUVFR J3oLjfykKS+WMDgFLN6tQhxWB koFYYhfX0uMPJgX8h1WbIoNrD 1 VMbyC8YznbX3EXZhnZBeIGIyc FKPbH6dapceh2duatkoHdYtYZ SjVIt0QFz3AXUewRfzWcThLVH 0 AaZ2MUQ6rVQacK8hiFqaqiarc G9wOyc+BapyzTbmTZF8TEs1E2 QtIbv5JRQwfWyyWJ6puQHpQRj u Xq2pbMadjMsfOO0kUTBzjvmff 350RbBpg6puPACxxTIeJYcwGB P2X63je7W1QSKhEPGmGAK6mZR 4 mL4nnZdemfxpeUPxiQzlqbYrh LnyBYcnDFtjN606WUQmsGyxFk ZmUMm6X8RaLop7GTJqfCxlBH7 n kQFiSMhpHb6mfPgcjDfnPZ8lK ZSflzzrb834PsGxd9nxUVOerV CfWAyuMHA6I93xv4Y4MTFtZHK w TXL9lFH8xL2scSfggncagOBxv XcemuKvlDpfNKguWYukF699EC MpjGasPfHhxAe9J4ZcJbg1RVY z iJrnYL0qmNJqDIwtAj9mbQqaq BvrXW9qINVsgdbdw519AiDap6 huZYWeyMZiJGumRHD5N41hb4U 6 SAMoQNBiJDL1vWL0fR3wzWnjg jogbGVmdDsgdmVydGljYWwtYW poP674LOYmvFusPyPiyRmrwxV g AAnfJKk6A5IcNwkwhOL+PC90Y ZHwAL52uGInoWYwv1aixRs3Lw UkVEQcSMW9rKymEGhcg1WwHOZ t Q01twHEio0H0BWHxcNkbxCPfZ uJphDV4bA8gKAqdpkyir8twyk naJrqis4eqvr21fU20R56sEFj p QSBmZGZcSRMnAJRtqJixcb1ps G9wIi8+WCXhcXM9tXG5gF5oRU FpWbQ8SPxvQ353UxZqnMPuZos j v4qdw4mwpYr0LhL7NPHogmKvz VcvVUX4t6MiBa13C77rMOppUW NmDSNhSQFgMFCiqGgqoc0xeV3 w Ii8+XDBfjXI4tFW7bC8mLeHsH qP8KBjiF742ZxHccEBoPdsuE3 8dQ6AmlFA+KXYjLit1FPQgvMb s KH3mtQXtNReuKv8rMHL4IjQrI rCdTWfaX7TcGQVclzuoqkxmbP I7KHEzUWPjxO20Vc3whXlxSQS w hIDOkA4exwoeg4xowibgVaMlX URcJDo2OZy8DAJefSzgTmRcLS C3XlY0DHF1dLQggS2dsZpfcvf g xM6lO3FuMGIoykbjBv92vX4xG rXiZrO2OZkpPal+A0sCI44WGG RUFLWJPG9CFHTNZGwNAeeobBR + UWLoCMW7mGsfMOjlXMMhgT4iC JYsY4q0OxJoBaV6KZkxY1TeMW JvbpmlYg47eX5hUkOgQoQ3EIb u A2DaufU6CFXnhEPpHGngCPG6R 19tk1U4GQQkCNUeACE8bKV7rG 1hbGlnbjogbGVmdDsgdmVydGl j TTbqQNxfY934GSOldOnxRaRkN fQ0GpL6QUR3Y6JiQom8FYOhwL pjIA0hnCAfKIosWb5ycArwoFh g PD9oNUHcqogoHZNzoP3cOIKrq IDkoOleJB1rQHLvsbnvx283Pi WxYNC2YUEoyODeT9SsoV6jSjV j RVNlNXDlA5OifHDbBGghQ462Q GpeYlX8RLHfgjDhW5DjUFLydR vzPuU8u4P7Qb2vLbUEIHTkleg v dGQ+FZZdNAS7iTiyVUozSXHbw S2vECCfP4l6RwCjZuT1BIzxM2 WiGMLfmozlRr73pG6iQxXzXnQ 1 BTonO6AlufK3YCSinAScJDjmX GY3Y72hj5E6KWGtQBVtTVS2wO E8oT4leMeadwafcXNyfIyzsxR y aPcmMQnsCWoqG615QGWxdHjhZ kZFTUFMRTwvdGQ+JZQsSXP3dV aqOKerOLEwlT4kAPLjM0p3XdN w ZpU6IZbvI8UiOSJdvplnHo89j R0kMjWaCqW4TQwcE7DimbC8BP EyzMMqBFcsWCB1U04zl0A6VGQ w ELZsPPI1tYF3xH3xrDttsxzow GVmdDsgdmVydGljYWwtYWxpZ2 12GTAcgBjgXe1ZSI88KR96N7L y PjwvdGFibGU+PHRhYmxlIHdpZ RGnPQwdXMNmXzQsrQllXF1aTs 0eJCCbWCSufGjddPDkRfIfp3y s GMZvPZkbQK4nkOcqW7LvhDO1L FVwh4n4Fs35F05aF3ZooJM+PG ZkqEB0pDG0cH9gDxGcRkB3NAy p O883FhNgiKGpKfahu9agw8hib Sn0ZfQoIZFwcjPjpQxmBNM9r8 NvUv70D37fSUdaVHCbJSUwBAM i PFNaeTuolb7ooQ0lDx7+PGNvb BA4pYS5oR3fEuTjFgB8JMptG5 50AyBhoRImFabaP92aZ1TzxSZ + XZFnSdu9FPSzaIhbNZ5pcCXjI DxkSq4oOYH3CsKzBsSpIUqnG9 NmMIRffjjavpdmyII9VYQxGBC w cB39No3viPgtJq3iMQYvTDN2J SQjnAXrB7UgcW3aDfNyABVrIR KaJ7BzvPNgHMvjA904BNgbIgO 7 CXCpqaOhT4NjVHOhdEmbGpV6u 1K8Qd6OzBffcAZlLB7tJqOzAW s4F9PsPbi2LQYgzQtqMZ0nxTT k FFxhRs6fpRmclUzbPY4zJHJsf abeo243YtHfl1qnWPFndBDlHN clRPG3O14jc7B6WFMgWTGjYNN 7 pZU0mF4hzXsnfuhseLFftUboj wIfmHujWGdjXXxiC090AIUfiL cgZwSQSpo1H7QuJvz7IYWnnMx s SO0opGTvUJhbSm2szOueaWcgD H6bWKBmwwfby106EnSgy0ywYB SafTHkZYrvXYZ1K22qt1B1ATQ w ZQUbZXF0sVD0xA0fiYedvrzeq GVmdDsgdmVydGljYWwtYWxpZ2 13GQAjaSatJc0ZQpx4O1OcErr 0 FRYvtKghGD1nlIZxWZfiEx7ph AmyvYwbAD7gUETkjiplq020Ue Xix3lhHQVrqZEkETikOGM6I45 s b7E3NVPmEWKcGCX9xXR3oN8te GlnbjogbGVmdDsgdmVydGljYW htOSkdF796PSDpfOioHqVdfXJ y OjwvdGQ+MI92gc72W8JjHgmkD nx1AIBrSUJ5wXC0aJ2bQIZdBD qpk0S9oQH8E3MeazGxdt0tp8u s YXB (more content not included)... Normal [facility] .Auto Diff 06-09-2023 Auto [place] % 8 % Normal 06-30 [facility] Comment on above: Performed By: #### 1 [id number], 96555270, 7071219742, 3567487, 3722370782, 7399868541, [id number] ####[facility] (DEFAULT)[address] [place] [address] Baso Abs# 0.0 x10 Normal 0.0-0.2 [facility] Comment on above: Performed By: #### 1 [id number], 52697494, 7331127530, 0086243, 8781548833, 0100157710, [id number] ####[facility] (DEFAULT)[address] [place] [address] Basophils/100 WBC (Bld) 0.4 % Normal 0.2-2.0 [facility] Comment on above: Performed By: #### 1 [id number], 67503658, 3744340117, 6333018, 1524405214, 4114873922, 0641207914 ####[facility] (DEFAULT)[address] [place] [address] Eos Abs# 0.2 x10 Normal 0.0-0.4 [facility] Comment on above: Performed By: #### 1 [id number], 29178242, 7131002272, 2303519, 2424561342, 6228369374, [id number] ####[facility] (DEFAULT)[address] [place] [address] 11981 Eosinophils/100 WBC (Bld) 2.4 % Normal 0.9-4.0 [facility] Comment on above: Performed By: #### 1 [id number], 26728306, 8110495076, 7706253, 6706876603, 4843387968, [id number] ####[facility] (DEFAULT)[address] [place] [address] 39142 Lymph Abs# 2.3 x10 Normal 1.3-2.9 [facility] Comment on above: Performed By: #### 1 [id number], 00962225, 8508630598, 4983276, 8648735685, 5725069340, 7424954125 ####[facility] (DEFAULT)[address] [place] [address] 26602 Lymphocytes/100 WBC (Bld) 35 % Normal 14-48 [facility] Comment on above: Performed By: #### 1 [id number], 29697705, 1884804560, 0705292, 5289455370, 1782316492, 8690454651 ####[facility] (DEFAULT)[address] [place] [address] 42833 [place] Abs# 0.5 x10 Normal 0.0-0.8 [facility] Comment on above: Performed By: #### 1 [id number], 30207988, 0073616097, 3492598, 3293277671, 0572599191, [id number] ####[facility] (DEFAULT)[address] [place] [address] 90262 Neut Abs# 3.5 x10 Normal 1.5-9.2 [facility] Comment on above: Performed By: #### 1 [id number], 42244699, 9956336814, 7340403, 4208345272, 6303292818, 9196209304 ####[facility] (DEFAULT)[address] [place] [address] 71495 Neutrophils/100 WBC (Bld) 54 % Normal 44-88 [facility] Comment on above: Performed By: #### 1 [id number], 50393252, 6619676336, 8351509, 4643034679, 8253663100, 0033981545 ####[facility] (DEFAULT)[address] [place] [address] CBC w/ Auto Diffon 3 Erythrocyte distribution width (RBC) [Ratio] 14.9 % Normal 11.5-15.0 [facility] Comment on above: Performed By: #### 1 [id number], 25275061, 5287687410, 6539753, 0789650861, 6420737922, 2450636474 ####[facility] (DEFAULT)[address] [place] [address] Hematocrit (Bld) [Volume fraction] 34.8 % Normal 33.7-40.4 [facility] Comment on above: Performed By: #### 1 151350598, 13684291, 3605818713, 4884652, 5107959873, 9617626188, 2543408049 ####[facility] (DEFAULT)[address] [place] [address] Hemoglobin (Bld) [Mass/Vol] 11.6 g/dL Normal 11.3-15.9 [facility] Comment on above: Performed By: #### 1 [id number], 69463400, 4794775862, 2757283, 9386333929, 3809645684, 5337411076 ####[facility] (DEFAULT)[address] [place] [address] Man Diff? Auto Invalid Interpretation Code [facility] Comment on above: Performed By: #### 1 [id number], 04556681, 3903170348, 0482528, 8074674981, 2079265689, 2354654716 ####[facility] (DEFAULT)[address] [place] [address] MCH (RBC) [Entitic mass] 28 pg Normal 24-34 [facility] Comment on above: Performed By: #### 1 438376392, 34427766, 8349480165, 8519214, 4271280203, 6196882481, 8129171686 ####[facility] (DEFAULT)[address] [place] [address] 71849 MCHC (RBC) [Mass/Vol] 33 g/dL Normal 26-37 [facility] Comment on above: Performed By: #### 1 [id number], 09202583, 4946252368, 7372168, 3995909778, 6605498990, 8926994645 ####[facility] (DEFAULT)[address] [place] [address] MCV (RBC) [Entitic vol] 82 fL Normal 81-100 [facility] Comment on above: Performed By: #### 1 [id number], 04075494, 2955608735, 9609714, 4032355459, 7474233838, 4576369358 ####[facility] (DEFAULT)[address] [place] [address] Platelet 227 x10 Normal 138-427 [facility] Comment on above: Performed By: #### 1 [id number], 96744641, 3572441066, 8889693, 6913866608, 3406551599, 2709176699 ####[facility] (DEFAULT)[address] [place] [address] 20964 Platelet mean volume (Bld) [Entitic vol] 7.8 fL Normal 6.3-10.2 [facility] Comment on above: Performed By: #### 1 [id number], 15246484, 0678004362, 4886607, 2841214956, 8622818313, 4739789854 ####[facility] (DEFAULT)[address] [place] [address] 84913 RBC 4.22 x10 Normal 3.70-5.30 [facility] Comment on above: Performed By: #### 1 058365991, 10914692, 2719108904, 1973737, 0807716509, 7551777242, 4081375145 ####[facility] (DEFAULT)[address] [place] [address] 72811 WBC 6.5 x10 Normal 3.5-10.5 [facility] Comment on above: Performed By: #### 1 866740494, 40782038, 7997339629, 7696467, 8478411064, 2238962023, 3947868365 ####[facility] (DEFAULT)[address] [place], [place] [address] CMP Standardon 06-09-2023 eGFR Non AA >60 Invalid Interpretation Code [facility] Comment on above: Performed By: #### 1 [id number], 01902351, 8266625313, 1808516, 4708786965, 2296882773, 4108618429 ####[facility] (DEFAULT)[address] [place] [address] eGFR AA >60 Invalid Interpretation Code [facility] Comment on above: Performed By: #### 1 739999928, 28734926, 7088553856, 4865705, 8442186657, 7806299843, 3168600923 ####[facility] (DEFAULT)[address] [place] [address] Albumin [Mass/Vol] 4.0 g/dL Normal 3.5-5.0 [facility] Comment on above: Performed By: #### 1 858718871, 55905747, 0784825893, 2246682, 5298818514, 1294993950, 0160704399 ####[facility] (DEFAULT)[address] [place] [address] 11585 Albumin/Globulin [Mass ratio] 1.0 {ratio} Low 1.4-2.6 [facility] Comment on above: Performed By: #### 1 358264016, 81697872, 5317122950, 7354713, 9207713962, 6954116283, 3543252856 ####[facility] (DEFAULT)[address] [place], [place] [address] Alk Phos 60 IU/L Normal 32-91 [facility] Comment on above: Performed By: #### 1 353732172, 79459812, 9361379507, 4799416, 7982640229, 5610787864, 3214352205 ####[facility] (DEFAULT)[address] [place] [address] 26700 ALT [Catalytic activity/Vol] 25.0 U/L Normal 14.0-54.0 [facility] Comment on above: Performed By: #### 1 415387508, 72650347, 3031398104, 5344433, 8769687033, 1083412843, 6023264363 ####[facility] (DEFAULT)[address] [place] [address] 35312 Anion gap [Moles/Vol] 10.8 mmol/L Normal 5.0-19.0 [facility] Comment on above: Performed By: #### 1 073377308, 63709184, 3384198352, 8443375, 8407255352, 0281962561, 7678561896 ####[facility] (DEFAULT)[address] [place] [address] 16298 AST [Catalytic activity/Vol] 22 U/L Normal 15-41 [facility] Comment on above: Performed By: #### 1 680872669, 54528303, 2832705197, 1700222, 8022303679, 7906360424, 3550408036 ####[facility] (DEFAULT)[address] [place] [address] 50247 Bili Total 0.4 mg/dL Normal 0.3-1.2 [facility] Comment on above: Performed By: #### 1 660912166, 32130025, 8693838120, 3795554, 7496903258, 6958459547, 7330563931 ####[facility] (DEFAULT)[address] [place] [address] 28830 Calcium [Mass/Vol] 8.7 mg/dL Low 8.9-10.3 [facility] Comment on above: Performed By: #### 1 265781130, 24869427, 8370478403, 8452167, 9501094943, 2976167254, 2982154408 ####[facility] (DEFAULT)[address] [place] [address] 85942 Chloride [Moles/Vol] 107 mmol/L Normal 101-111 [facility] Comment on above: Performed By: #### 1 456389609, 33546107, 7795931024, 4123983, 1834982552, 3700581687, 4110779229 ####[facility] (DEFAULT)[address] [place] [address] 28018 CO2 [Moles/Vol] 23 mmol/L Normal 21-32 [facility] Comment on above: Performed By: #### 1 900658338, 21746887, 2106681075, 1594093, 8211333667, 3624186416, 5898750563 ####[facility] (DEFAULT)[address] [place] [address] 23895 Creatinine [Mass/Vol] 0.53 mg/dL Low 0.60-1.30 [facility] Comment on above: Performed By: #### 1 442326531, 14848531, 6040248838, 8321249, 2076883547, 2823256027, 5248494428 ####[facility] (DEFAULT)[address] [place] [address] 05281 Globulin (S) [Mass/Vol] 3.8 g/dL Normal 1.5-4.3 [facility] Comment on above: Performed By: #### 1 402829295, 08364595, 6442364519, 2206297, 5616828278, 3738380993, 1028049116 ####[facility] (DEFAULT)[address] [place] [address] 19871 Glucose [Mass/Vol] 92.0 mg/dL Normal 74.0-118.0 [facility] Comment on above: Performed By: #### 1 248397045, 32456603, 9764756608, 8504401, 6174970838, 0219254186, 0205344067 ####[facility] (DEFAULT)[address] [place] [address] 51180 Osmolality 272 mOsm/L Invalid Interpretation Code [facility] Comment on above: Performed By: #### 1 [id number], [id number], [id number], [id number], [id number], [id number], [id number] ####[facility] (DEFAULT)[address] [place] [address] 90400 Potassium [Moles/Vol] 3.8 mmol/L Normal 3.6-5.1 [facility] Comment on above: Performed By: #### 1 [id number], [id number], [id number], [id number], [id number], [id number], [id number] ####[facility] (DEFAULT)[address] [place] [address] 07304 Protein [Mass/Vol] 7.8 g/dL Normal 6.5-8.1 [facility] Comment on above: Performed By: #### 1 [id number], [id number], [id number], 7325522, [id number], [id number], [id number] ####[facility] (DEFAULT)[address] [place] [address] 39111 Sodium [Moles/Vol] 137.0 mmol/L Normal 136.0-144.0 [facility] Comment on above: Performed By: #### 1 [id number], [id number], [id number], 2995129, [id number], [id number], [id number] ####[facility] (DEFAULT)[address] [place] [address] 30106 Urea nitrogen [Mass/Vol] 9 mg/dL Normal 8-26 [facility] Comment on above: Performed By: #### 1 [id number], [id number], [id number], [id number], [id number], [id number], [id number] ####[facility] (DEFAULT)[address] [place] [address] 78943 Urea nitrogen/Creatinine [Mass ratio] 16.9 mg/mg High 4.6-16.2 [facility] Comment on above: Performed By: #### 1 [id number], [id number], [id number], 0551124, [id number], [id number], [id number] ####[facility] (DEFAULT)[address] [place] [address] 42093 ED Clinical Summaryon 2022 ED Clinical Summary [facility] Emergency Department [address] [place] [address] ED Clinical Summary PERSON INFORMATION Name: BARBRA CLAROS Age: 27 Years Sex: FEMALE : 1995 MRN: Acct#: Visit Reason: Dizziness; Headache; MIGRAINE, DIZZINESS Arrival: 06/09/2023 11:32:00 Discharge: 06/09/2023 13:05:00 LOS: 000 01:33 Check In: 06/09/2023 11:32:00 Checkout:06/09/2023 13:05:00 Address: [address] [place] [address] PCP: Provider, None PROVIDER INFORMATION Provider Role [...] Home PATIENT EDUCATION INFORMATION Instructions: Migraine Headache, Nnpu-gr-Lneb Follow-Up: With: Address: When: Follow up with primary care provider Within 3 to 5 days DIAGNOSIS: 1:Migraine headache Patient Understands: Yes - Patient/family/caregiver verbalizes understanding of instructions given Comment: Normal [facility] ED Patient Summaryon 023 ED Patient Summary [facility] Emergency Department [address] [place] [address] 9[address]69 PATIENT DISCHARGE INSTRUCTIONS Patient Information Name: BARBRA CLAROS Age: 27 Years Date of : 1995 Reason For Visit: Dizziness; Headache; MIGRAINE, DIZZINESS Arrival Time: 06/09/2023 11:32:00 Primary Care Physician: Provider, None Attending Physician: Anjel Yates MD Comment: Visit Diagnosis: Diagnoses This Visit Dizziness ([id number]) Headache ([id number]) Migraine headache (G43.909) The Pharmacy at [facility] is open Monday through Monday from 9A [...] alcohol and/or drug addiction problems; contact the [facility] 09/01 Crisis Hotline -text 4hope to 741741. [...] and treatment you received today in the [facility] Emergency Department were for an urgent problem and are not intended as complete care. It is important for you to follow up with a doctor, nurse practitioner, or physician?s certified surgical assistant for ongoing care. If your symptoms [...] so we can reach you if necessary. [facility] Emergency Department has provided you with a complete list of medications post discharge. 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 Any specific questions regarding your chronic medications and dosages should be discussed with your primary care physician(s) and/or pharmacist. New Medications [facility] [id number], [address], [place] [id number], [phone] rizatriptan (Maxalt 10 mg oral tablet) 1 [...] Measurements This Visit (more content not included)... [facility]STon 06-09-2023 Tube Collected Yes Invalid Interpretation Code [facility] Comment on above: Performed By: #### 1 [id number], [id number], [id number], [id number], [id number], [id number], [id number] ####[facility] (DEFAULT)[address] [place] [address] 99471 Progress Note - Nurseon 05-20 Progress Note - Nurse Patient walks to [facility]. Patient is alert and oriented. Patient is here for a migraine and dizziness. Patient has been experiencing it for the past two days. Patient has a history of migraines, which started 3 months ago after she gave to her child. [Electronically Signed on: 06/09/2023 12:29 EST] Leena September HENNA [Verified on: 06/09/2023 12:29 EST] Leena September HENNA [facility] UA w Culture if Ind Standard on 06-09-2023 [facility]point [facility] Comment on above: Performed By: #### 1 [id number] ####[facility] (DEFAULT)[address] [place] [address] 90128 Color (U) Yellow [facility] Comment on above: Performed By: #### 1 [id number] ####[facility] (DEFAULT)[address] [place] [address] 91824 Culture? Not Indicated Invalid Interpretation Code [facility] Comment on above: Result Comment: Resu lt created by rule GL_MAGR_ADD_UA_CULT1 Performed By: #### 1 [id number] ####[facility] (DEFAULT)[address] [place] [address] 04640 Glucose (U) [Mass/Vol] Negative Normal [facility] Comment on above: Performed By: #### 1 [id number] ####[facility] (DEFAULT)[address] [place] [address] 01504 Ketones Ql (U) Negative [facility] Comment on above: Performed By: #### 1 [id number] ####[facility] (DEFAULT)[address] [place] [address] Micro? Not Indicated Invalid Interpretation Code [facility] Comment on above: Result Comment: Resu lt created by rule GL_MAGR_ADD_UA_MICRO Performed By: #### 1 [id number] ####[facility] (DEFAULT)[address] [place] [address] 80108 UA Bilirubin Negative Normal [facility] Comment on above: Performed By: #### 1 [id number] ####[facility] (DEFAULT)[address] [place] [address] 68472 UA Blood Negative Normal NEGATIVE [facility] Comment on above: Performed By: #### 1 [id number] ####[facility] (DEFAULT)[address] [place] [address] 18125 UA Clarity CLEAR Normal CLEAR [facility] Comment on above: Performed By: #### 1 [id number] ####[facility] (DEFAULT)[address] [place] [address] 93603 UA Leuk Est Negative Normal NEGATIVE [facility] Comment on above: Performed By: #### 1 [id number] ####[facility] (DEFAULT)[address] [place] [address] 62497 UA Nitrite Negative Normal NEGATIVE [facility] Comment on above: Performed By: #### 1 [id number] ####[facility] (DEFAULT)[address] [place] [address] 58141 UA pH 6.5 Normal 5-8 [facility] Comment on above: Performed By: #### 1 [id number] ####[facility] (DEFAULT)[address] [place] [address] UA Protein Negative Normal NEGATIVE [facility] Comment on above: Performed By: #### 1 [id number] ####[facility] (DEFAULT)[address] [place] [address] UA Spec Grav 1.020 Normal 1.001-1.035 [facility] Comment on above: Performed By: #### 1 [id number] ####[facility] (DEFAULT)[address] [place] [address] UA Urobilinogen 0.2 mg/dL Normal 0.2-1.0 [facility] Comment on above: Performed By: #### 1 [id number] ####[facility] (DEFAULT)[address] [place] [address] Urine Source Clean Catch Normal [facility] Comment on above: Performed By: #### 1 [id number] ####[facility] (DEFAULT)[address] [place] [address] ED Clinical Summaryon 2022 ED Clinical Summary [facility] ? Urgent Care [address] [place] [address] Clinical Summary PERSON INFORMATION Name: BARBRA CLAROS Age: 27 Years Sex: FEMALE : 1995 MRN: Acct#: Visit Reason: UC - Cough; UC - Sinus Pain or Congestion; CONGESTION, NAUSEA, SINUS PRESSURE, HEADACHE Arrival: 06/04/2023 10:57:44 Discharge: 06/04/2023 12:05:00 LOS: 000 01:08 Check In: 06/04/2023 10:57:44 Checkout: 06/04/2023 12:05:00 Address: [address] [address] PCP: Provider, None PROVIDER INFORMATION Provider Role Assigned Unassigned Francia Nation LOGGING ENGINEER Nurse 06/04/2023 11:00:21 Luis Alfredo Mitchell ED [...] with medication to treat cough. May use tujc-sbw-leihbxp cough and cold type medications, but make [...] verbalizes understanding of instructions given Comment: Normal [facility] ED Patient Summaryon 023 ED Patient Summary [facility] ? Urgent Care [address] [place] [address] PATIENT DISCHARGE INSTRUCTIONS Patient Information Name: BARBRA [...] with medication to treat cough. May use itrm-gfo-jkotofc cough and cold type medications, but make [...] Medicines to relieve symptoms. These can include jvvq-ekk-elpxvjr medicine for pain and fever, medicines for cough or congestion, and medicines to relieve diarrhea. ? Antiviral medicines. These medicines are available only for certain types of viruses. Some viral illnesses can be prevented with vaccinations. A common example is the flu shot. Follow these instructions at home: Medicines ? Take ezfx-jxj-talsgfg and prescript (more content not included)... Normal [facility] POCT Rapid CoV-2 (COVID-19) Antigen/ Flu A&Bon 06-04-2023 Influenza A POCT Negative Normal Negative [facility] Comment on above: Performed By: #### 9 [id number] ####[facility] (DEFAULT)[address] [place] [address] Influenza B POCT Negative Normal Negative [facility] Comment on above: Performed By: #### 2 [id number] ####[facility] (DEFAULT)[address] [place] [address] SARS-CoV-2 (COVID-19) RNA MARICEL+probe Ql (Unsp spec) Not detected Normal [facility] Comment on above: Performed By: #### 2 [id number] ####[facility] (DEFAULT)[address] [place] [address] Urgent Care Recordon 023 Urgent Care Record [facility] ? Urgent Care [address] [place] [address] PATIENT DISCHARGE INSTRUCTIONS Patient Information Name: BARBRA [...] diseases classified elsewhere (B97.89) UC - Cough ([id number]) UC - Sinus Pain or Congestion ([id number]) Viral respiratory illness (J98.8) If you received [...] with medication to treat cough. May use cyme-brg-xcqmmis cough and cold type medications, but make [...] and treatment you received today in the [facility] were for an urgent problem and are not intended as complete care. It is important for you to follow up with a doctor, nurse practitioner, or physician?s certified surgical assistant for ongoing care. If your symptoms [...] so we can reach you if necessary. [facility] has provided you with a complete list of medications post discharge. 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 Any specific questions regarding your chronic medications and dosages should be discussed with your primary care physician(s) and/or pharmacist. New Medications [facility], [address] [place] [address] [phone], [phone] benzonatate (Tessalon Perles 100 mg oral capsule) [...] Temporal: 36 (more content not included)... Normal [facility] Coding Summaryon 04-20-2023 Coding Summary HTMLBase 64 DsspokvxJHu3eYr+PGhlYWQ+P X9UDNCqC87yrSNgaN8iD2QFEU lOSywgQVBQTElOSyIgbmFtZT1 kaXNjZXJu IC8+CD5eEPOxJtqztAOqg8W2y UT1Z59rgd3pDMadmXE4ZZHgRn Axangzj8comSp1BQzcIjneBgX t VQNprF13OSX9zD51Fq79nMOdt XWtv4yiyWc5DyEnPLChFXM3lW uuDLjnm7PtWZChR94srUOvn0T 6 YJCjmWyiuJTxKnZgbXV7oR4bM Xagnfrxb5xjspmtHyd8gk72rE Sjb5M6kLU0C6DvghN5SRQgoFQ g DjcjxJOOqA5rwvnsr1vdkbcdW oNtZWUzYOb0JVm9PMOgsMenBl UoFF84NIC9XFOqcoRgA5EwQYR s kAruPkL4n8K8Ye3RX5PNBcwpU 1VNTUFSWTwvdGQ+ZS97uq25F1 AxLfdvTwv4WHIcWTR0fRE1pH7 n BMLbIMxsd9R6mOI3V4GdkkJnp m1rt0xdAMXyEXeuG08tkHLxp1 H1STOcaAZ1QLRduDzkTzWqjO0 3 Oyc+NRZicTzmj0CwNmhcn3vkr 2fnjLb8DiwcYWDsewPuwZzfNB T7n7AwYb8wPZDcvOM8yBW7uV9 i YvZyBqK3IWtgW309JcIvmPYrL fxxT33sX8RktLL+ZEGgYhm8VF OpvYfoXT2lM6OkNQIdphyeoVU m fIiqCS2fIXBgnjavPIBjtL1zN CCyQ0w7PvNnXpO7QHhkC0WiUV HfilamZo93iS8gOsTaDqN6HGp u J1WlpmT4QYNvpECuKZlrFOL5Q 51vm1L5VWTtKSKiXMR8bQU7xY 1hbGlnbjogbGVmdDsgdmVydGl j ZPnaEYwjH549DUQvuXdzJzZqC GluZyBEYXRlOiAgMTEvMDIvMj AyMzwvdGQ+HOOzLGW1bPkgTVX n dHRiHQikNq2lvBcfwIpiLC3jH CIvlohjCPFenI3pHKIaoNXpoS kkYV6hXYTufubup994WdNjSUQ 0 NWTqgBXrX3TsaQ9jCyFkRAPyK EFxM4HbsELsUQpzH863WFncCx U8CLXsfbHtX9SzTAIikJjwDoA 0 c7F2Mc0Sw7XqulhtT5DqnIWyL qBzKiofBTo5R6OmGbxskMM+PC 04QWZnPA77CGn9VLJ9wPiwFFa i QXReG3MntI0zKhNxQDDrYIIfM yc+PHRhYmxlIHdpZHRoPScxMD CwIvOqhWivZW0bBi5lGXCjETN v gReyaQEjJqAvc1reFNKfKDfmE Y0hbMbmP2IxrTK2IQBrr2k5Jn 90W85eD5PspVP+IVCsrPC2dZV 0 eD5vYzJmQmB2ZHscG658HxTev JGmIhpgm6jnj7xvsAp3McH1LE SoqzVieBnnDVK0e4AyAm55Z71 s IHdpZHRoPSIxNSUiIHZhbGlnb u8unH4cAq8+BNEzqQK6mCI3pI 6fVdNbYpK1OYkdT062WxJwxFJ v Fztot3hwd7wclTs6IbLdPZZzy fMkuHoxJTR9s3WtDe80O6CgtX hmn6PeHoj6lz20kKOsz5X4eHM 9 S6RpPPJdowhlbTKsbTgrSO7yB DFtuphpNZPhdM4kVPUiG3n3Zh JqDlI9RWbbS6YsjjQ6AQVgvRW g WWGshPLUvV6vfmsbe2jcqxnbR jSkJTCzFFh8WJe5UVTjfSzcTz RiPZL8SmJ5PFN6xCEfdD7zyVl n gkbqeB6gEos+QTR4eWJzxJOJR G8jCvvwbUH+OURtDLK0fLwbDG quKYEyjB9pMWAoK9c4HqVxJqU 1 TTxgJ1CduqF8YRAbvIIaRIZkq LGTwN5anjbdn3wrrtaqXbCgKO IuBIv0NDh4CGDmfVgkViIgLTJ 0 GmI3ZUF9aMYgvJ2wsTzbusvaf G9wOyc+KmqqtLbnGOQ0QZf3U9 SdYoe9BBLvnEhwGW5ffSImUUq u Ll7ipRzxgNsyCA5iDEGqglwem 220MsAni9uaOXCefFVfNBtjMY H2Y10rk0Z9IKOzCKQjMXQ3gWM 4 uS2gmRqmgmyuoZHkfHcxrqApu PkmBQmvTPvtB334FAAahPuxLy DtONf0Y8FmUst0PCSqnTryPO3 n oOXrLUbnPe8mrOkzwShsOB1pU UPkttpxa716NvUbh6esTPUzqT TqACjvOMN3R96ry5N8KCAaHQG w FMK0sLS6bM5hxAqmirwrdXJgo VhsdrJxyBusRJhpJVupI366JM TxpYleZrQqoAf0F6BlDns7NXC z hSpvWC7wdCMkQDynVm2sqZoii WyyXE1yPGLzruwyc857DwBja6 kiRVPysPGzMVkwEMA1Y80eg4F 6 TECmYMYwRJK5kKQ9qK9utTfjr jogbGVmdDsgdmVydGljYWwtYW zdV866BHKpsDhaEmXddMyxalK g TFfsTWi3F7NgValbcFM+PC90Y UPlPZ36qRNteEJzr7mreNs8Kf BvGONzCOC1fVmwQQmmw5LvHXI t I21pqPPrm5P2UXYvrNgwaTJmX vQgfBC6xQ3vNKmtxjarr3ynyf fnShxtp0mnqj22xU86T58tDHd p GTBaWMFfJRZvEQXjdDjtpb6aj G9wIi8+WEFmiJR8vRL0aB5nJZ DvKkU2CAuqZ193DmPfjTAgIws j o1bht2smsMd7XcI4AEQcgcKvc DtoRMM3s0GfVm16D83fYCxaCL HiQCBpTBGpVVNdeKygjz1ayM3 w Ii8+JOLfxUU9aTN8aL1fSwNvF tT9UPgkA933QcVwfIRtCkztS6 3pY5VqeMF+USOkLoc1WINmsXj s BO0gqJEbNBskDy7lCSC4CsStW vClWUcpW6AkPBLgtycgbgpsyM X4VAGqKYZyqA41Xl8wdUvpBJQ w nHSMxO3xlvumm6gswdevDxRvR UQlYIx2WKc6UQGipEuoJhXiNJ E2IrS7GNH2xJCxyK3tgCdpghm g tX9uF3NnPLWwykzuKy27fF8kO rCiYlO9SYsrFms+Q1jCM55YES NLQKKNOT6PHPKVAJsICjtcdLV + YAMnNAG0vNipWOfqVFHwaR2bA KSmH5r6FjPsPtY8ARjfT6BhDV CycsdxWa21hC9nMgIbQqT0BFj u K1PcmhU3LAZzvTWpODhlAEU9M 45mb1R0YJZhNJDjCKF6zGE7tW 1hbGlnbjogbGVmdDsgdmVydGl j IVelQIvyH835VXNenDnaXbIxW kV8DvG7KAD5I8NlEvm9WSRtdH dpTH9ixXGnJUvjVy5uvFwdvIq g TO6yXXEvooojHITsyK3fNEOic DXdtXsgMQ6mPTEkohgor976Xn EmBLH5QIKxoZCxN2TywE9uIbO j XPCiFOWgZ7TfmURbDHdgM142G FluLwW4MPBlhdIiD2WwJEXmxT haDxS7o3H2Yq5uXvSUKDRcprr v dGQ+EVBiJDP6pXhuKVhxBQYuz Q1xCSLwY9n4ZpJnBvA1TZdsM9 BpPUYpqayoDy66jR2wBrPzWzU 1 NWxoT9OmksU6GDZlbMKyBXttW VN5O19ub2M7FTRlSLQpTAK1bG W2aB3vrCaisxjozQClcAbnqsV y cSzgVBpeIGzdH596FNHskLziH kZFTUFMRTwvdGQ+LQHmJDP7iW nqXBmeFSEidU1nYZXhO3f2UaK w VsU7BIbuH6XtQZOyzwqgVk82j P4gDlFkInL3NBhkC8SzkjT1KM DzeTXlWIjfWSX0Z38sk5Q6VSP w RWWyOMJ5bXX5gD5zhVnjrhwdq GVmdDsgdmVydGljYWwtYWxpZ2 54GELoaKllRaVfNBIjLN7yrSh v dGQ+RC42un48F9ZwUpljQdd1X WSxDXJ7xUT0vH7nGZIqVRmal0 E6uJY8P5HqmgFshq5wv3qoLFY z PUdmC16ycNCez9U0VMRomFJ4F CWziEfrPsXguX78Xra+PGNvbG xpq0SxGwrnv0gln6zlaDk7NxV w MPOnawGykJioGUE6i9IwOb17D 29sIHdpZHRoPSIzMCUiIHZhbG ojzs2tlX0bUb9+UQQcrRY7gYN 0 cR7zZcOhVvX5YRmuT814HkUjm JGfDhuwm0gfj5gvjDz9SeNcWF JlgxOawOpwNCF1o4HtBm15M9T v qUgmq5GgIyk8vz42tIMpf4P5b KZ5Y7XqBDHwdadmoWOxaOseCP 4iFYTurbkkMOLvyD1qRFGxN5l 0 TgAvBwS3BRisR3LdplX7IRLqw XGiXSJqoXTDdC9yzsahj1szux upPcJwVPEzBWp3JAq7KGVypOx u XqFmGTQ4QxQ8SDM1wGEdaZ2za QcsxifsiA4nTmj+KNf6h9ambO HyDN8flOC4KX64MA52mRTqm7I 5 tXX0J5JdWOGgffkailtjiAL3C KFdWDKaiH93Vl9zwAbpWi2gYZ UlYLC7XYBufHZyM9DthB8fNjC j YHQfESBtD2CnpDAaMKsvS276N AobVcE7ESWmrbZjW8McPJZlpN otFyF3t7R8Pr0FGV04SV55PJ9 8 jXCio6I0wPP0L4JrSJNqeikig uzmwGK1JQLcOQMouR72Rs0szE ntHg5gVRSwSLM3CSTnaUIjH5H v qO6dKtKfDTKlGSHoG5MbvJTlX WgzW436IOeaYbI1MTOvxxEvY0 IvQQLdsVjgPaW1m8H7Lm6DAv8 6 IX69DE88jHImf0E5yIX2J7GpB HUfrhobaemqeIR3CBKnLCTmqJ 19Ul8naBpkZl8jVEQxFOH1ZVK p cZVvC7EyxZ5qCrQkPFTeNSHbY 1EkfZQjHAvrH014YPqsPtM0LB NeyjBuH5CmMQRbiJusZdA5n1W 7 Hv7TOSqqjzh9H4MiGxoxnNV+P R71OSLgZZ30yWZdfOCya6jwhX o9AeEhHJSyWTZ1cHdzGMuwz2K k ZXI (more content not included)... Normal [facility] .Auto Diff 104-16-2023 Auto [place] % 8 % Normal 06-30 [facility] Comment on above: Performed By: #### 3 [id number], 7414887, 8148955, [id number], [id number] ####[facility] (DEFAULT)[address] [place] [address] 44991 Baso Abs# 0.0 x10 Normal 0.0-0.2 [facility] Comment on above: Performed By: #### 3 [id number], 3446299, 4660915, [id number], 32154487 ####[facility] (DEFAULT)[address] [place] [address] 99183 Basophils/100 WBC (Bld) 0.4 % Normal 0.2-2.0 [facility] Comment on above: Performed By: #### 3 [id number], 8673180, 1645743, [id number], 43874334 ####[facility] (DEFAULT)[address] [place] [address] Eos Abs# 0.4 x10 Normal 0.0-0.4 [facility] Comment on above: Performed By: #### 3 [id number], 4338626, 1679919, [id number], 31115892 ####[facility] (DEFAULT)[address] [place] [address] Eosinophils/100 WBC (Bld) 4.9 % High 0.9-4.0 [facility] Comment on above: Performed By: #### 3 [id number], 8208126, 8081064, 2157636344, 51792591 ####[facility] (DEFAULT)[address] [place] [address] Lymph Abs# 3.3 x10 High 1.3-2.9 [facility] Comment on above: Performed By: #### 3 [id number], 9442088, 7053252, 1356762260, 52725772 ####[facility] (DEFAULT)[address] [place] [address] Lymphocytes/100 WBC (Bld) 43 % Normal 14-48 [facility] Comment on above: Performed By: #### 3 57186695, 6437632, 3329566, [id number], 30753358 ####[facility] (DEFAULT)[address] [place] [address] [place] Abs# 0.6 x10 Normal 0.0-0.8 [facility] Comment on above: Performed By: #### 3 74642849, 9979298, 7689617, 6000933554, 15783797 ####[facility] (DEFAULT)[address] [place] [address] Neut Abs# 3.4 x10 Normal 1.5-9.2 [facility] Comment on above: Performed By: #### 3 88051320, 0774554, 1493770, [id number], 90887913 ####[facility] (DEFAULT)[address] [place] [address] Neutrophils/100 WBC (Bld) 44 % Normal 44-88 [facility] Comment on above: Performed By: #### 3 41527282, 4104232, 4895320, 7849665924, 34117604 ####[facility] (DEFAULT)[address] [place] [address] CBC w/ Auto Diffon 3 Erythrocyte distribution width (RBC) [Ratio] 17.9 % High 11.5-15.0 [facility] Comment on above: Performed By: #### 3 97471645, 9103835, 1453536, 3294114550, 95641693 ####[facility] (DEFAULT)[address] [place] [address] Hematocrit (Bld) [Volume fraction] 32.9 % Low 33.7-40.4 [facility] Comment on above: Performed By: #### 3 73557221, 7510988, 3582321, 8608955624, 97287661 ####[facility] (DEFAULT)[address] [place] [address] Hemoglobin (Bld) [Mass/Vol] 10.6 g/dL Low 11.3-15.9 [facility] Comment on above: Performed By: #### 3 84279023, 4537435, 4725264, 3092066504, 10413716 ####[facility] (DEFAULT)[address] [place] [address] Man Diff? Auto Invalid Interpretation Code [facility] Comment on above: Performed By: #### 3 [id number], 8596306, 7563070, [id number], 63172231 ####[facility] (DEFAULT)[address] [place] [address] MCH (RBC) [Entitic mass] 26 pg Normal 24-34 [facility] Comment on above: Performed By: #### 3 65361912, 3510512, 7316264, 4733563597, 05929512 ####[facility] (DEFAULT)[address] [place] [address] 71145 MCHC (RBC) [Mass/Vol] 32 g/dL Normal 26-37 [facility] Comment on above: Performed By: #### 3 29861769, 0326751, 3377700, 3235573746, 07865179 ####[facility] (DEFAULT)[address] [place] [address] MCV (RBC) [Entitic vol] 81 fL Normal 81-100 [facility] Comment on above: Performed By: #### 3 67961522, 4791327, 2345221, 7732744079, 85407692 ####[facility] (DEFAULT)[address] [place] [address] Platelet 275 x10 Normal 138-427 [facility] Comment on above: Performed By: #### 3 24753991, 2614176, 4684400, 4385891133, 81917173 ####[facility] (DEFAULT)[address] [place] [address] Platelet mean volume (Bld) [Entitic vol] 7.8 fL Normal 6.3-10.2 [facility] Comment on above: Performed By: #### 3 69558792, 8477601, 1641693, 5951184456, 63224502 ####[facility] (DEFAULT)[address] [place] [address] RBC 4.05 x10 Normal 3.70-5.30 [facility] Comment on above: Performed By: #### 3 78713784, 3099833, 6090220, 5091890867, 12205271 ####[facility] (DEFAULT)[address] [place] [address] WBC 7.7 x10 Normal 3.5-10.5 [facility] Comment on above: Performed By: #### 3 38164464, 7525716, 9726043, 8241752892, 87720388 ####[facility] (DEFAULT)[address] [place] [address] CMP Standardon 04-16-2023 Breakpoint Chem Normal [facility] Comment on above: Performed By: #### 3 77917905, 0332340, 1789312, 3133869286, 11843305 ####[facility] (DEFAULT)[address] [place] [address] 12984 eGFR Non AA >60 Invalid Interpretation Code [facility] Comment on above: Performed By: #### 3 [id number], 3006870, 6237097, 9334676878, 77276133 ####[facility] (DEFAULT)[address] [place] [address] 62370 eGFR AA >60 Invalid Interpretation Code [facility] Comment on above: Performed By: #### 3 55161462, 1772454, 7719976, 7926236973, 91047003 ####[facility] (DEFAULT)[address] [place] [address] Albumin/Globulin [Mass ratio] 1.2 {ratio} Low 1.4-2.6 [facility] Comment on above: Performed By: #### 3 64231617, 2398093, 2306564, 8525912190, 83901639 ####[facility] (DEFAULT)[address] [place] [address] 08298 Anion gap [Moles/Vol] 7.6 mmol/L Normal 5.0-19.0 [facility] Comment on above: Performed By: #### 3 67126375, 5902907, 6545283, 3098948278, 04342202 ####[facility] (DEFAULT)[address] [place] [address] 61542 Globulin (S) [Mass/Vol] 3.2 g/dL Normal 1.5-4.3 [facility] Comment on above: Performed By: #### 3 12172575, 3795019, 1143163, 2006480123, 57426010 ####[facility] (DEFAULT)[address] [place] [address] Osmolality 275 mOsm/L Invalid Interpretation Code [facility] Comment on above: Performed By: #### 3 03315628, 7075437, 9469200, 7123347593, 72439462 ####[facility] (DEFAULT)[address] [place] [address] Urea nitrogen/Creatinine [Mass ratio] 20.3 mg/mg High 4.6-16.2 [facility] Comment on above: Performed By: #### 3 61653413, 6945996, 8795149, 4894968892, 95148333 ####[facility] (DEFAULT)[address] [place] [address] Albumin [Mass/Vol] 3.9 g/dL Normal 3.5-5.0 [facility] Comment on above: Performed By: #### 3 67662258, 1910739, 1275501, 8641260093, 19308048 ####[facility] (DEFAULT)[address] [place] [address] Alk Phos 44 IU/L Normal 32-91 [facility] Comment on above: Performed By: #### 3 [id number], 3106633, 2279986, 7431653810, 48449286 ####[facility] (DEFAULT)[address] [place] [address] ALT [Catalytic activity/Vol] 39.0 U/L Normal 14.0-54.0 [facility] Comment on above: Performed By: #### 3 42945977, 3292054, 7935068, 8513593594, 22178980 ####[facility] (DEFAULT)[address] [place] [address] AST [Catalytic activity/Vol] 28 U/L Normal 15-41 [facility] Comment on above: Performed By: #### 3 36245232, 7085101, 9840822, 1268238791, 88969774 ####[facility] (DEFAULT)[address] [place] [address] Bili Total 0.4 mg/dL Normal 0.3-1.2 [facility] Comment on above: Performed By: #### 3 34754267, 6807910, 4486412, 7157223151, 97084485 ####[facility] (DEFAULT)[address] [place] [address] 71084 Calcium [Mass/Vol] 8.6 mg/dL Low 8.9-10.3 [facility] Comment on above: Performed By: #### 3 92193998, 9898363, 6634059, 5838260080, 47278196 ####[facility] (DEFAULT)[address] [place] [address] 13329 Chloride [Moles/Vol] 107 mmol/L Normal 101-111 [facility] Comment on above: Performed By: #### 3 31327500, 8863176, 4868744, 3346827030, 06544580 ####[facility] (DEFAULT)[address] [place] [address] 76771 CO2 [Moles/Vol] 27 mmol/L Normal 21-32 [facility] Comment on above: Performed By: #### 3 28084437, 2054473, 7785165, 7620490879, 59726739 ####[facility] (DEFAULT)[address] [place] [address] 50851 Creatinine [Mass/Vol] 0.64 mg/dL Normal 0.60-1.30 [facility] Comment on above: Performed By: #### 3 93007638, 1134947, 2752625, 1221446281, 94301098 ####[facility] (DEFAULT)[address] [place] [address] 53514 Glucose [Mass/Vol] 93.0 mg/dL Normal 74.0-118.0 [facility] Comment on above: Performed By: #### 3 13135197, 9282372, 3963812, 5738916792, 67094604 ####[facility] (DEFAULT)[address] [place] [address] 09487 Potassium [Moles/Vol] 3.6 mmol/L Normal 3.6-5.1 [facility] Comment on above: Performed By: #### 3 19821931, 4382415, 6188659, 0774320694, 97812954 ####[facility] (DEFAULT)[address] [place] [address] 46970 Protein [Mass/Vol] 7.1 g/dL Normal 6.5-8.1 [facility] Comment on above: Performed By: #### 3 40404405, 6945302, 7538244, 3780351073, 51499560 ####[facility] (DEFAULT)[address] [place] [address] 32713 Sodium [Moles/Vol] 138.0 mmol/L Normal 136.0-144.0 [facility] Comment on above: Performed By: #### 3 98140564, 8757248, 8017235, 2748003691, 07099664 ####[facility] (DEFAULT)[address] [place] [address] 70774 Urea nitrogen [Mass/Vol] 13 mg/dL Normal 8- [facility] Comment on above: Performed By: #### 3 95291359, 7860953, 2059179, 9544422490, 47295436 ####[facility] (DEFAULT)[address] [place] [address] 09933 ED Clinical Summaryon 2022 ED Clinical Summary [facility] Emergency Department [address] [place] [address] ED Clinical Summary PERSON INFORMATION Name: BARBRA CLAROS Age: 27 Years Sex: FEMALE : 1995 MRN: Acct#: Visit Reason: Vaginal bleeding; Vaginal bleeding; VAGINAL BLEEDING Arrival: 04/15/2023 23:05:13 Discharge: 04/16/2023 03:19:00 LOS: 000 04:14 Check In: 04/15/2023 23:05:13 Checkout:04/16/2023 03:19:00 Address: [address] [place] [id number] PCP: Provider, None PROVIDER INFORMATION Provider Role Assigned Unassigned Doreen Lowe LOGGING ENGINEER Nurse 04/15/2023 23:48:50 Luis Alfredo Shepherd DO [...] that she would call Dr. 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 She [...] Impression and Plan Diagnosis Dysfunctional uterine bleeding (LLH12-TJ N93.8, Discharge, Medical) Plan Condition: Improved. Disposition: Discharged. Prescriptions Patient was given the following educational materials: Menorrhagia, [id number]-[id number]. Follow up with: ; Michael Gurrola In 2 days 04/18/2023 home ibuprofen for cramps Provera: one tab daily to reduce the bleeding continue your iron pills Call Dr Gurrola on Monday, for a recheck apt w (more content not included)... 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 She [...] Impression and Plan Diagnosis Dysfunctional uterine bleeding (JYE30-BF N93.8, Discharge, Medical) Plan Condition: Improved. Disposition: Discharged. Prescriptions Patient was given the following educational materials: Menorrhagia, Rknc-on-Grza. Follow up with: ; Michael Gurrola In [...] 03:19 EDT] Luis Alfredo Shepherd DO Normal [facility] ED Patient Summaryon 023 ED Patient Summary [facility] - Emergency Department [address] [place] [address] PATIENT DISCHARGE INSTRUCTIONS Patient Information Name: BARBRA CLAROS Age: 27 Years Date of : 1995 Reason For Visit: Vaginal bleeding; Vaginal bleeding; VAGINAL BLEEDING Arrival Time: 04/15/2023 23:05:13 Primary Care Physician: Moncho, Gerda Attending Physician: Luis Alfredo Shepherd DO Comment: Visit Diagnosis: Diagnoses This Visit Dysfunctional uterine bleeding (N93.8) Vaginal bleeding ([id number]) Vaginal bleeding ([id number]) The Pharmacy at [facility] is open Monday through Monday from 9A [...] alcohol and/or drug addiction problems; contact the [facility] 09/01 Crisis Hotline -Text 5QLXQ sy 277925. If you received any narcotics, sedation, or [...] With: Address: When: Michael Gurrola [address], [address] [place] [address] Business (1) In 2 days 04/18/2023 Comments: home ibuprofen for cramps Provera: one tab daily to reduce the bleeding continue your iron pills Call Dr Gurrola on Monday, for a recheck apt we have provided a copy of your recent labs to take to the doctor you are welcomed to return, especially if fever, or the bleeding increases. T Chucky SHEPHERD< ER PHYSICIAN< Chucky Hoang. Medication Information: The exam and treatment you received today in the [facility] Emergency Department were for an urgent problem and are not intended as complete care. It is important for you to follow up with a doctor, nurse practitioner, or physician?s certified surgical assistant for ongoing care. If your symptoms [...] so we can reach you if necessary. [facility] Emergency Department has provided you with a complete list of medications post discharge. 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 Any specific questions regarding your chronic medications and dosages should be discussed with your primary care physician(s) and/or pharmacist. New Medications [facility], [address] [place] [phone], [phone] medroxyPROGESTERone (medroxyPROGESTERone 5 mg oral tablet) 1 [...] This Visit (more content not included)... Normal [facility] PT/PTTon 04-16-2023 INR Coag (PPP) [Relative time] 0.99 {INR} Normal 0.91-1.11 [facility] Comment on above: Performed By: #### 3 [id number], [id number] ####[facility] (DEFAULT)[address] [place] [address] PT 10.3 second(s) Normal 9.7-11.8 [facility] Comment on above: Performed By: #### 3 [id number], [id number], [id number] ####[facility] (DEFAULT)[address] [place] [address] PTT 33 second(s) Normal 25-35 [facility] Comment on above: Performed By: #### 3 [id number] ####[facility] (DEFAULT)[address] [place] [address] Test Serum 1on Preg Serum Internal Control OK Normal [facility] Comment on above: Performed By: #### 3 [id number], [id number] ####[facility] (DEFAULT)[address] [place] [address] Test Serum Qual Negative Normal [facility] Comment on above: Performed By: #### 3 [id number], [id number], [id number] ####[facility] (DEFAULT)[address] [place] [address] Basophils Auto (Bld) [#/Vol] Ordered By: Jonathan Monahan on 02-27-2023 Basophils (Bld) [#/Vol] 0.0 10*3/uL 0.0-0.2 [facility] Basophils/100 WBC Auto (Bld) Ordered By: Jonathan Monahan on 02-27-2023 Basophils/100 WBC (Bld) 0.4 % . [facility] Eosinophils Auto (Bld) [#/Vo l]Ordered By: Jonathan Monahan on 02-27-2023 Eosinophils (Bld) [#/Vol] 0.1 10*3/uL 0.0-0.45 [facility] Eosinophils/100 WBC Auto (Bl d)Ordered By: Jonathan Monahan on 02-27-2023 Eosinophils/100 WBC (Bld) 0.7 % . [facility] Erythrocyte distribution wid th Auto (RBC) [Ratio]Ordered By: Jonathan Monahan on 02-27-2023 Erythrocyte distribution width (RBC) [Ratio] 14.8 % 11.9-15.3 [facility] Hematocrit Auto (Bld) [Volum e fraction]Ordered By: Jonathan Monahan on 02-27-2023 Hematocrit (Bld) [Volume fraction] 27.5 % 34.0-46.4 [facility] [facility] Hemoglobin [Mass/volume] in BloodOrdered By: Jonathan Monahan on 02-27-2023 Hemoglobin (Bld) [Mass/Vol] 8.9 g/dL 11.8-15.4 [facility] Hepatitis B virus surface Ag [Presence] in Serum or Plasma by ImmunoassayOrdered By: Jonathan Monahan on 02-27-2023 HBV surface Ag IA Ql Negative Negative [facility] Comment on above: Performed at: [id number] [place], [place] [id number] Director: Alexander Jean Baptiste PhD, Phone: [phone] Leukocytes [#/volume] correc arminda for nucleated erythrocytes in Blood by Automated counOrdered By: Jonathan Monahan on 02-27-2023 WBC corrected for nucl RBC Auto (Bld) [#/Vol] 9.6 10*3/uL 3.8-11.6 [facility] Lymphocytes Auto (Bld) [#/Vo l]Ordered By: Jonathan Monahan on 02-27-2023 Lymphocytes (Bld) [#/Vol] 2.6 10*3/uL 1.00-4.8 [facility] Lymphocytes/100 WBC Auto (Bl d)Ordered By: Jonathan Monahan on 02-27-2023 Lymphocytes/100 WBC (Bld) 26.9 % . [facility] MCH Auto (RBC) [Entitic mass ]Ordered By: Jonathan Monahan on 02-27-2023 MCH (RBC) [Entitic mass] 25.6 pg 24.7-34.3 [facility] MCHC Auto (RBC) [Mass/Vol]Or dered By: Jonathan Monahan on 02-27-2023 MCHC (RBC) [Mass/Vol] 32.4 g/dL 32.0-35.0 [facility] MCV Auto (RBC) [Entitic vol] Ordered By: Jonathan Monahan on 02-27-2023 MCV (RBC) [Entitic vol] 79.0 fL 80-100 [facility] Monocytes Auto (Bld) [#/Vol] Ordered By: Jonathan Monahan on 02-27-2023 Monocytes (Bld) [#/Vol] 0.7 10*3/uL 0.0-0.8 [facility] Monocytes/100 WBC Auto (Bld) Ordered By: Jonathan Monahan on 02-27-2023 Monocytes/100 WBC (Bld) 7.1 % . [facility] Neutrophils Auto (Bld) [#/Vo l]Ordered By: Jonathan Monahan on 02-27-2023 Neutrophils (Bld) [#/Vol] 6.2 10*3/uL 1.8-7.7 [facility] Neutrophils/100 WBC Auto (Bl d)Ordered By: Jonathan Monahan on 02-27-2023 Neutrophils/100 WBC (Bld) 64.9 % . [facility] No Panel InformationOrdered By: Jonathan Monahan on 02-27-2023 Rubella IgG Antibody 2.22 index Immune >0.99 [facility] Comment on above: Non-immune <0.90 Equ ivocal 0.90 - 0.99 Immune >0.99Performed at: [facility] [place] [id number] Director: Alexander Jean Baptiste PhD, Phone: [phone] Nucleated erythrocytes [Pres ence] in Blood by Automated countOrdered By: Jonathan Monahan on 02-27-2023 Nucleated RBC Auto Ql (Bld) 0.2 /100{WBC} 0-0.5 [facility] Platelet mean volume Auto (B ld) [Entitic vol]Ordered By: Jonathan Monahan on 02-27-2023 Platelet mean volume (Bld) [Entitic vol] 7.5 fL 6.3-10.7 [facility] Platelets Auto (Bld) [#/Vol] Ordered By: Jonathan Monahan on 02-27-2023 Platelets (Bld) [#/Vol] 266 10*3/uL 150-450 [facility] RBC Auto (Bld) [#/Vol]Ordere d By: Jonathan Monahan on 02-27-2023 RBC (Bld) [#/Vol] 3.48 10*6/uL 3.60-5.[address] [facility] WBC Auto (Bld) [#/Vol]Ordere d By: Jonathan Monahan on 02-27-2023 WBC (Bld) [#/Vol] 9.6 10*3/uL 3.8-11.6 [facility] Amphetamine Screen Ql (U)Ord ered By: Jonathan Monahan on 02-26-2023 Amphetamines Ql (U) Negative Negative [facility] Automated erythrocytes count in urine sediment (number/area)Ordered By: Jonathan Monahan on 02-26-2023 RBC Auto (Urine sed) [#/Area] 0-1 [HPF] 0-4 [facility] Automated leukocytes count i n urine sediment (number/area)Ordered By: Jonathan Monahan on 02-26-2023 WBC Auto (Urine sed) [#/Area] 20-49 [HPF] 0-4 [facility] Barbiturates [Presence] in U rine by Screen methodOrdered By: Jonathan Monahan on 02-26-2023 Barbiturates Screen Ql (U) Negative Negative [facility] Benzodiazepines Screen Ql (U )Ordered By: Jonathan Monahan on 02-26-2023 Benzodiazepines Ql (U) Negative Negative [facility] Benzoylecgonine [Presence] i n Urine by Screen methodOrdered By: Jonathan Monahan on 02-26-2023 Benzoylecgonine Screen Ql (U) Negative Negative [facility] Bilirubin Test strip Ql (U)O rdered By: Jonathan Monahan on 02-26-2023 Bilirubin Ql (U) Negative Negative [facility] Color Auto (U)Ordered By: Hola Monahan on 02-26-2023 Color (U) Yellow Yellow [facility] Ketones Auto test strip (U) [Mass/Vol]Ordered By: Jonathan Monahan on 02-26-2023 Ketones (U) [Mass/Vol] Trace Negative [facility] Laboratory - UrinalysisOrder ed By: Jonathan Monahan on 02-26-2023 Hyaline casts LM Ql (Urine sed) 0-8 [LPF] 0-8 [facility] Nitrite Test strip Ql (U)Ord ered By: Jonathan Monahan on 02-26-2023 Nitrite Ql (U) Negative Negative [facility] Opiates [Presence] in Urine by Screen methodOrdered By: Jonathan Monahan on 02-26-2023 Opiates Screen Ql (U) Negative Negative [facility] Phencyclidine Screen Ql (U)O rdered By: Jonathan Monahan on 02-26-2023 Phencyclidine Ql (U) Negative Negative [facility] Comment on above: These are unconfirme d results and should not be used for legal purposes. Drug Cut-Off Concentration: AMPH 1000 ng/mL FIONA 200 ng/mL KIMMY 200 ng/mL COCM 300 ng/mL OP 300 ng/mL PCP 25 ng/mL Protein Auto test strip (U) [Mass/Vol]Ordered By: Jonathan Monahan on 02-26-2023 Protein (U) [Mass/Vol] Negative Negative [facility] Reagin Ab [Presence] in Seru m by RPROrdered By: Jonathan Monahan on 02-26-2023 Reagin Ab RPR Ql (S) Non-Reactive Non Reactive [facility] Comment on above: Performed at: [place] [id number] Director: Alexander Jean Baptiste PhD, Phone: [phone] Specific gravity Auto test s trip (U) [Rel density]Ordered By: Jonathan Monahan on 02-26-2023 Specific gravity (U) [Rel density] 1.016 1.001-1.030 [facility] Squamous epithelial cells de tection in urine sediment by light microscopyOrdered By: Jonathan Monahan on 02-26-2023 Epithelial cells.squamous LM Ql (Urine sed) 3-4 [HPF] 0-2 [facility] Urine bacteria detection by automated methodOrdered By: Jonathan Monahan on 02-26-2023 Bacteria Auto Ql (U) 1+ None Seen [facility] Urine clarity by refractomet ry automatedOrdered By: Jonathan Monahan on 02-26-2023 Clarity Refractometry automated (U) Cloudy Clear [facility] Urine culture routineOrdered By: Jonathan Monahan on 02-26-2023 Bacteria identified Cx Nom (U) [address] [facility] Urine glucose measurement by automated test strip (mass/volume)Ordered By: Jonathan Monahan on 02-26-2023 Glucose Auto test strip (U) [Mass/Vol] Normal mg/dL Normal [facility] Urine hemoglobin detection b y automated test stripOrdered By: Jonathan Monahan on 02-26-2023 Hemoglobin Auto test strip Ql (U) Negative Negative [facility] Urine leukocyte esterase det ection by automated test stripOrdered By: Jonathan Monahan on 02-26-2023 Leukocyte esterase Auto test strip Ql (U) 3+ Negative [facility] Urobilinogen Auto test strip (U) [Mass/Vol]Ordered By: Jonathan Monahan on 02-26-2023 Urobilinogen (U) [Mass/Vol] Normal mg/dL Normal [facility] pH Auto test strip (U)Ordere d By: Jonathan Monahan on 02-26-2023 pH (U) 6.5 [pH] 5.0-9.0 [facility] Amphetamine Screen Ql (U)Ord ered By: CARY Beltre on 02-25-2023 Amphetamines Ql (U) Negative Negative [facility] Barbiturates [Presence] in U rine by Screen methodOrdered By: CARY Beltre on 02-25-2023 Barbiturates Screen Ql (U) Negative Negative [facility] Benzodiazepines Screen Ql (U )Ordered By: CARY Beltre on 02-25-2023 Benzodiazepines Ql (U) Negative Negative [facility] Benzoylecgonine [Presence] i n Urine by Screen methodOrdered By: CARY Beltre on 02-25-2023 Benzoylecgonine Screen Ql (U) Negative Negative [facility] Bilirubin Test strip Ql (U)O rdered By: CARY Beltre on 02-25-2023 Bilirubin Ql (U) Negative Negative [facility] Color Auto (U)Ordered By: MD NATAN Beltre on 02-25-2023 Color (U) Yellow Yellow [facility] Ketones Auto test strip (U) [Mass/Vol]Ordered By: CARY Beltre on 02-25-2023 Ketones (U) [Mass/Vol] Negative Negative [facility] Nitrite Test strip Ql (U)Ord ered By: CARY Beltre on 02-25-2023 Nitrite Ql (U) Negative Negative [facility] Opiates [Presence] in Urine by Screen methodOrdered By: CARY Beltre on 02-25-2023 Opiates Screen Ql (U) Negative Negative [facility] Phencyclidine Screen Ql (U)O rdered By: CARY Beltre on 02-25-2023 Phencyclidine Ql (U) Negative Negative [facility] Comment on above: These are unconfirme d results and should not be used for legal purposes. Drug Cut-Off Concentration: AMPH 1000 ng/mL FIONA 200 ng/mL KIMMY 200 ng/mL COCM 300 ng/mL OP 300 ng/mL PCP 25 ng/mL Protein Auto test strip (U) [Mass/Vol]Ordered By: CARY Beltre on 02-25-2023 Protein (U) [Mass/Vol] Negative Negative [facility] Specific gravity Auto test s trip (U) [Rel density]Ordered By: CARY Beltre on 02-25-2023 Specific gravity (U) [Rel density] 1.015 1.001-1.030 [facility] Urine clarity by refractomet ry automatedOrdered By: CARY Beltre on 02-25-2023 Clarity Refractometry automated (U) Clear Clear [facility] Urine glucose measurement by automated test strip (mass/volume)Ordered By: ARDEN Beltre on 02-25-2023 Glucose Auto test strip (U) [Mass/Vol] Normal mg/dL Normal [facility] Urine hemoglobin detection b y automated test stripOrdered By: CARY Beltre on 02-25-2023 Hemoglobin Auto test strip Ql (U) Negative Negative [facility] Urine leukocyte esterase det ection by automated test stripOrdered By: CARY Beltre on 02-25-2023 Leukocyte esterase Auto test strip Ql (U) Negative Negative [facility] Urobilinogen Auto test strip (U) [Mass/Vol]Ordered By: CARY Beltre on 02-25-2023 Urobilinogen (U) [Mass/Vol] Normal mg/dL Normal [facility] pH Auto test strip (U)Ordere d By: CARY Beltre on 02-25-2023 pH (U) 6.5 [pH] 5.0-9.0 [facility] Amphetamine Screen Ql (U)Ord ered By: MICHAEL GURROLA on 02-22-2023 Amphetamines Ql (U) Negative Negative [facility] Automated erythrocytes count in urine sediment (number/area)Ordered By: MICHAEL GURROLA on 02-22-2023 RBC Auto (Urine sed) [#/Area] 0-1 [HPF] 0-4 [facility] Automated leukocytes count i n urine sediment (number/area)Ordered By: MICHAEL GURROLA on 09-06-2023 WBC Auto (Urine sed) [#/Area] 5-9 [HPF] 0-4 [facility] Barbiturates [Presence] in U rine by Screen methodOrdered By: MICHAEL GURROLA on 02-22-2023 Barbiturates Screen Ql (U) Negative Negative [facility] Benzodiazepines Screen Ql (U )Ordered By: MICHAEL GURROLA on 02-22-2023 Benzodiazepines Ql (U) Negative Negative [facility] Benzoylecgonine [Presence] i n Urine by Screen methodOrdered By: MICHAEL GURROLA on 02-22-2023 Benzoylecgonine Screen Ql (U) Negative Negative [facility] Bilirubin Test strip Ql (U)O rdered By: MICHAEL GURROLA on 02-22-2023 Bilirubin Ql (U) Negative Negative [facility] Color Auto (U)Ordered By: SAMIR GURROLA on 02-22-2023 Color (U) Yellow Yellow [facility] Ketones Auto test strip (U) [Mass/Vol]Ordered By: MICHAEL GURROLA on 02-22-2023 Ketones (U) [Mass/Vol] Negative Negative [facility] Laboratory - UrinalysisOrder ed By: MICHAEL GURROLA on 02-22-2023 Hyaline casts LM Ql (Urine sed) 0-8 [LPF] 0-8 [facility] Nitrite Test strip Ql (U)Ord ered By: MICHAEL GURROLA on 02-22-2023 Nitrite Ql (U) Negative Negative [facility] No Panel InformationOrdered By: MICHAEL GURROLA on 02-22-2023 Membranes Rupture (PAMG-1) Negative Negative [facility] Opiates [Presence] in Urine by Screen methodOrdered By: MICHAEL GURROLA on 02-22-2023 Opiates Screen Ql (U) Negative Negative [facility] Phencyclidine Screen Ql (U)O rdered By: MICHAEL GURROLA on 02-22-2023 Phencyclidine Ql (U) Negative Negative [facility] Comment on above: These are unconfirme d results and should not be used for legal purposes. Drug Cut-Off Concentration: AMPH 1000 ng/mL FIONA 200 ng/mL KIMMY 200 ng/mL COCM 300 ng/mL OP 300 ng/mL PCP 25 ng/mL Protein Auto test strip (U) [Mass/Vol]Ordered By: MICHAEL GURROLA on 02-22-2023 Protein (U) [Mass/Vol] Negative Negative [facility] Specific gravity Auto test s trip (U) [Rel density]Ordered By: MICHAEL GURROLA on 02-22-2023 Specific gravity (U) [Rel density] 1.013 1.001-1.030 [facility] Squamous epithelial cells de tection in urine sediment by light microscopyOrdered By: MICHAEL GURROLA on 02-22-2023 Epithelial cells.squamous LM Ql (Urine sed) 3-4 [HPF] 0-2 [facility] Urine bacteria detection by automated methodOrdered By: MICHAEL GURROLA on 02-22-2023 Bacteria Auto Ql (U) None seen None Seen [facility] Urine clarity by refractomet ry automatedOrdered By: MICHAEL GURROLA on 02-22-2023 Clarity Refractometry automated (U) Clear Clear [facility] Urine culture routineOrdered By: MICHAEL GURROLA on 02-22-2023 Bacteria identified Cx Nom (U) [facility] Urine glucose measurement by automated test strip (mass/volume)Ordered By: MICHAEL GURROLA on 02-22-2023 Glucose Auto test strip (U) [Mass/Vol] 100 mg/dL Normal [facility] Urine hemoglobin detection b y automated test stripOrdered By: MICHAEL GURROLA on 02-22-2023 Hemoglobin Auto test strip Ql (U) Negative Negative [facility] Urine leukocyte esterase det ection by automated test stripOrdered By: MICHAEL GURROLA on 02-22-2023 Leukocyte esterase Auto test strip Ql (U) 2+ Negative [facility] Urobilinogen Auto test strip (U) [Mass/Vol]Ordered By: MICHAEL GURROLA on 02-22-2023 Urobilinogen (U) [Mass/Vol] Normal mg/dL Normal [facility] pH Auto test strip (U)Ordere d By: MICHAEL GURROLA on 02-22-2023 pH (U) 7.0 [pH] 5.0-9.0 [facility] Amphetamine Screen Ql (U)Ord ered By: JUANY CHOI on 02-19-2023 Amphetamines Ql (U) Negative Negative [facility] Barbiturates [Presence] in U rine by Screen methodOrdered By: JUANY CHOI on 02-19-2023 Barbiturates Screen Ql (U) Negative Negative [facility] Benzodiazepines Screen Ql (U )Ordered By: JUANY CHOI on 02-19-2023 Benzodiazepines Ql (U) Negative Negative [facility] Benzoylecgonine [Presence] i n Urine by Screen methodOrdered By: JUANY CHOI on 02-19-2023 Benzoylecgonine Screen Ql (U) Negative Negative [facility] Bilirubin Test strip Ql (U)O rdered By: JUANY CHOI on 02-19-2023 Bilirubin Ql (U) Negative Negative [facility] Color Auto (U)Ordered By: LEIDA CHOI on 02-19-2023 Color (U) Yellow Yellow [facility] Ketones Auto test strip (U) [Mass/Vol]Ordered By: JUANY CHOI on 02-19-2023 Ketones (U) [Mass/Vol] Negative Negative [facility] Nitrite Test strip Ql (U)Ord ered By: JUANY CHOI on 02-19-2023 Nitrite Ql (U) Negative Negative [facility] No Panel InformationOrdered By: JUANY CHOI on 02-19-2023 Membranes Rupture (PAMG-1) Negative Negative [facility] Opiates [Presence] in Urine by Screen methodOrdered By: JUANY CHOI on 02-19-2023 Opiates Screen Ql (U) Negative Negative [facility] Phencyclidine Screen Ql (U)O rdered By: JUANY CHOI on 02-19-2023 Phencyclidine Ql (U) Negative Negative [facility] Comment on above: These are unconfirme d results and should not be used for legal purposes. Drug Cut-Off Concentration: AMPH 1000 ng/mL FIONA 200 ng/mL KIMMY 200 ng/mL COCM 300 ng/mL OP 300 ng/mL PCP 25 ng/mL Protein Auto test strip (U) [Mass/Vol]Ordered By: JUANY CHOI on 02-19-2023 Protein (U) [Mass/Vol] Negative Negative [facility] Specific gravity Auto test s trip (U) [Rel density]Ordered By: JUANY CHOI on 02-19-2023 Specific gravity (U) [Rel density] 1.004 1.001-1.030 [facility] Urine clarity by refractomet ry automatedOrdered By: JUANY CHOI on 02-19-2023 Clarity Refractometry automated (U) Clear Clear [facility] Urine glucose measurement by automated test strip (mass/volume)Ordered By: JUANY CHOI on 02-19-2023 Glucose Auto test strip (U) [Mass/Vol] Normal mg/dL Normal [facility] Urine hemoglobin detection b y automated test stripOrdered By: JUANY CHOI on 02-19-2023 Hemoglobin Auto test strip Ql (U) Negative Negative [facility] Urine leukocyte esterase det ection by automated test stripOrdered By: JUANY CHOI on 02-19-2023 Leukocyte esterase Auto test strip Ql (U) Negative Negative [facility] Urobilinogen Auto test strip (U) [Mass/Vol]Ordered By: JUANY CHOI on 02-19-2023 Urobilinogen (U) [Mass/Vol] Normal mg/dL Normal [facility] pH Auto test strip (U)Ordere d By: JUANY CHOI on 02-19-2023 pH (U) 6.5 [pH] 5.0-9.0 [facility] Amphetamine Screen Ql (U)Ord ered By: CARY Beltre on 02-17-2023 Amphetamines Ql (U) Negative Negative [facility] Barbiturates [Presence] in U rine by Screen methodOrdered By: CARY Beltre on 02-17-2023 Barbiturates Screen Ql (U) Negative Negative [facility] Benzodiazepines Screen Ql (U )Ordered By: CARY Beltre on 02-17-2023 Benzodiazepines Ql (U) Negative Negative [facility] Benzoylecgonine [Presence] i n Urine by Screen methodOrdered By: CARY Beltre on 02-17-2023 Benzoylecgonine Screen Ql (U) Negative Negative [facility] Bilirubin Test strip Ql (U)O rdered By: CARY Beltre on 02-17-2023 Bilirubin Ql (U) Negative Negative [facility] Color Auto (U)Ordered By: MD NATAN Beltre on 02-17-2023 Color (U) Yellow Yellow [facility] Ketones Auto test strip (U) [Mass/Vol]Ordered By: CARY Beltre on 02-17-2023 Ketones (U) [Mass/Vol] Negative Negative [facility] Nitrite Test strip Ql (U)Ord ered By: CARY Beltre on 02-17-2023 Nitrite Ql (U) Negative Negative [facility] Opiates [Presence] in Urine by Screen methodOrdered By: CARY Beltre on 02-17-2023 Opiates Screen Ql (U) Negative Negative [facility] Phencyclidine Screen Ql (U)O rdered By: CARY Beltre on 02-17-2023 Phencyclidine Ql (U) Negative Negative [facility] Comment on above: These are unconfirme d results and should not be used for legal purposes. Drug Cut-Off Concentration: AMPH 1000 ng/mL FIONA 200 ng/mL KIMMY 200 ng/mL COCM 300 ng/mL OP 300 ng/mL PCP 25 ng/mL Protein Auto test strip (U) [Mass/Vol]Ordered By: CARY Beltre on 02-17-2023 Protein (U) [Mass/Vol] Negative Negative [facility] Specific gravity Auto test s trip (U) [Rel density]Ordered By: CARY Beltre on 02-17-2023 Specific gravity (U) [Rel density] 1.003 1.001-1.030 [facility] Urine clarity by refractomet ry automatedOrdered By: CARY Beltre on 02-17-2023 Clarity Refractometry automated (U) Clear Clear [facility] Urine glucose measurement by automated test strip (mass/volume)Ordered By: ARDEN Beltre on 02-17-2023 Glucose Auto test strip (U) [Mass/Vol] Normal mg/dL Normal [facility] Urine hemoglobin detection b y automated test stripOrdered By: CARY Beltre on 02-17-2023 Hemoglobin Auto test strip Ql (U) Negative Negative [facility] Urine leukocyte esterase det ection by automated test stripOrdered By: CARY Beltre on 02-17-2023 Leukocyte esterase Auto test strip Ql (U) Negative Negative [facility] Urobilinogen Auto test strip (U) [Mass/Vol]Ordered By: CARY Beltre on 02-17-2023 Urobilinogen (U) [Mass/Vol] Normal mg/dL Normal [facility] pH Auto test strip (U)Ordere d By: CARY Beltre on 02-17-2023 pH (U) 6.5 [pH] 5.0-9.0 [facility] Group B Streptococcus cultur eOrdered By: MICHAEL GURROLA on 02-16-2023 S. agalactiae Org specific cx Ql (Unsp spec) [facility] S. agalactiae Org specific cx Ql (Unsp spec) [facility] Amphetamine Screen Ql (U)Ord ered By: Jonathan Monahan on 02-07-2023 Amphetamines Ql (U) Negative Negative [facility] Barbiturates [Presence] in U rine by Screen methodOrdered By: Jonathan Monahan on 02-07-2023 Barbiturates Screen Ql (U) Negative Negative [facility] Benzodiazepines Screen Ql (U )Ordered By: Jonathan Monahan on 02-07-2023 Benzodiazepines Ql (U) Negative Negative [facility] Benzoylecgonine [Presence] i n Urine by Screen methodOrdered By: Jonathan Monahan on 02-07-2023 Benzoylecgonine Screen Ql (U) Negative Negative [facility] Bilirubin Test strip Ql (U)O rdered By: Jonathan Monahan on 02-07-2023 Bilirubin Ql (U) Negative Negative [facility] Color Auto (U)Ordered By: Hola Monahan on 02-07-2023 Color (U) Yellow Yellow [facility] Ketones Auto test strip (U) [Mass/Vol]Ordered By: Jonathan Monahan on 02-07-2023 Ketones (U) [Mass/Vol] Trace Negative [facility] Nitrite Test strip Ql (U)Ord ered By: Jonathan Monahan on 02-07-2023 Nitrite Ql (U) Negative Negative [facility] Opiates [Presence] in Urine by Screen methodOrdered By: Jonathan Monahan on 02-07-2023 Opiates Screen Ql (U) Negative Negative [facility] Phencyclidine Screen Ql (U)O rdered By: Jonathan Monahan on 02-07-2023 Phencyclidine Ql (U) Negative Negative [facility] Comment on above: These are unconfirme d results and should not be used for legal purposes. Drug Cut-Off Concentration: AMPH 1000 ng/mL FIONA 200 ng/mL KIMMY 200 ng/mL COCM 300 ng/mL OP 300 ng/mL PCP 25 ng/mL Protein Auto test strip (U) [Mass/Vol]Ordered By: Jonathan Monahan on 02-07-2023 Protein (U) [Mass/Vol] Negative Negative [facility] Specific gravity Auto test s trip (U) [Rel density]Ordered By: Jonathan Monahan on 02-07-2023 Specific gravity (U) [Rel density] 1.006 1.001-1.030 [facility] Urine clarity by refractomet ry automatedOrdered By: Jonathan Monahan on 02-07-2023 Clarity Refractometry automated (U) Clear Clear [facility] Urine glucose measurement by automated test strip (mass/volume)Ordered By: Jonathan Monahan on 02-07-2023 Glucose Auto test strip (U) [Mass/Vol] Normal mg/dL Normal [facility] Urine hemoglobin detection b y automated test stripOrdered By: Jonathan Monahan on 02-07-2023 Hemoglobin Auto test strip Ql (U) Negative Negative [facility] Urine leukocyte esterase det ection by automated test stripOrdered By: Jonathan Monahan on 02-07-2023 Leukocyte esterase Auto test strip Ql (U) Negative Negative [facility] Urobilinogen Auto test strip (U) [Mass/Vol]Ordered By: Jonathan Monahan on 02-07-2023 Urobilinogen (U) [Mass/Vol] Normal mg/dL Normal [facility] pH Auto test strip (U)Ordere d By: Jonathan Monahan on 02-07-2023 pH (U) 6.0 [pH] 5.0-9.0 [facility] Amphetamine Screen Ql (U)Ord ered By: JUANY CHOI on 01-26-2023 Amphetamines Ql (U) Negative Negative [facility] Automated erythrocytes count in urine sediment (number/area)Ordered By: JUANY CHOI on 01-26-2023 RBC Auto (Urine sed) [#/Area] 0-1 [HPF] 0-4 [facility] Automated leukocytes count i n urine sediment (number/area)Ordered By: JUANY CHOI on 01-26-2023 WBC Auto (Urine sed) [#/Area] 0-1 [HPF] 0-4 [facility] Barbiturates [Presence] in U rine by Screen methodOrdered By: JUANY CHOI on 01-26-2023 Barbiturates Screen Ql (U) Negative Negative [facility] Benzodiazepines Screen Ql (U )Ordered By: JUANY CHOI on 01-26-2023 Benzodiazepines Ql (U) Negative Negative [facility] Benzoylecgonine [Presence] i n Urine by Screen methodOrdered By: JUANY CHOI on 01-26-2023 Benzoylecgonine Screen Ql (U) Negative Negative [facility] Bilirubin Test strip Ql (U)O rdered By: JUANY CHOI on 01-26-2023 Bilirubin Ql (U) Negative Negative [facility] Color Auto (U)Ordered By: LEIDA CHOI on 01-26-2023 Color (U) Yellow Yellow [facility] Ketones Auto test strip (U) [Mass/Vol]Ordered By: JUANY CHOI on 01-26-2023 Ketones (U) [Mass/Vol] Negative Negative [facility] Laboratory - UrinalysisOrder ed By: JUANY CHOI on 01-26-2023 Hyaline casts LM Ql (Urine sed) 0-8 [LPF] 0-8 [facility] Nitrite Test strip Ql (U)Ord ered By: JUANY CHOI on 01-26-2023 Nitrite Ql (U) Negative Negative [facility] No Panel InformationOrdered By: JUANY CHOI on 01-26-2023 Membranes Rupture (PAMG-1) Negative Negative [facility] Opiates [Presence] in Urine by Screen methodOrdered By: JUANY CHOI on 01-26-2023 Opiates Screen Ql (U) Negative Negative [facility] Phencyclidine Screen Ql (U)O rdered By: JUANY CHOI on 01-26-2023 Phencyclidine Ql (U) Negative Negative [facility] Comment on above: These are unconfirme d results and should not be used for legal purposes. Drug Cut-Off Concentration: AMPH 1000 ng/mL FIONA 200 ng/mL KIMMY 200 ng/mL COCM 300 ng/mL OP 300 ng/mL PCP 25 ng/mL Protein Auto test strip (U) [Mass/Vol]Ordered By: JUANY CHOI on 01-26-2023 Protein (U) [Mass/Vol] Trace mg/dL Negative [facility] Specific gravity Auto test s trip (U) [Rel density]Ordered By: JUANY CHOI on 01-26-2023 Specific gravity (U) [Rel density] 1.021 1.001-1.030 [facility] Squamous epithelial cells de tection in urine sediment by light microscopyOrdered By: JUANY CHOI on 01-26-2023 Epithelial cells.squamous LM Ql (Urine sed) 1-2 [HPF] 0-2 [facility] Urine bacteria detection by automated methodOrdered By: JUANY CHOI on 01-26-2023 Bacteria Auto Ql (U) None seen None Seen [facility] Urine clarity by refractomet ry automatedOrdered By: JUANY CHOI on 01-26-2023 Clarity Refractometry automated (U) Cloudy Clear [facility] Urine glucose measurement by automated test strip (mass/volume)Ordered By: JUAYN CHOI on 01-26-2023 Glucose Auto test strip (U) [Mass/Vol] Normal mg/dL Normal [facility] Urine hemoglobin detection b y automated test stripOrdered By: JUANY CHOI on 01-26-2023 Hemoglobin Auto test strip Ql (U) Negative Negative [facility] Urine leukocyte esterase det ection by automated test stripOrdered By: JUANY CHOI on 01-26-2023 Leukocyte esterase Auto test strip Ql (U) Negative Negative [facility] Urobilinogen Auto test strip (U) [Mass/Vol]Ordered By: JUANY CHOI on 01-26-2023 Urobilinogen (U) [Mass/Vol] Normal mg/dL Normal [facility] pH Auto test strip (U)Ordere d By: JUANY CHOI on 01-26-2023 pH (U) 6.0 [pH] 5.0-9.0 [facility] Amphetamine Screen Ql (U)Ord ered By: Jonathan Monahan on 01-24-2023 Amphetamines Ql (U) Negative Negative [facility] Automated erythrocytes count in urine sediment (number/area)Ordered By: Jonathan Monahan on 01-24-2023 RBC Auto (Urine sed) [#/Area] 0-1 [HPF] 0-4 [facility] Automated leukocytes count i n urine sediment (number/area)Ordered By: Jonathan Monahan on 01-24-2023 WBC Auto (Urine sed) [#/Area] 0-1 [HPF] 0-4 [facility] Barbiturates [Presence] in U rine by Screen methodOrdered By: Jonathan Monahan on 01-24-2023 Barbiturates Screen Ql (U) Negative Negative [facility] Benzodiazepines Screen Ql (U )Ordered By: Jonathan Monahan on 01-24-2023 Benzodiazepines Ql (U) Negative Negative [facility] Benzoylecgonine [Presence] i n Urine by Screen methodOrdered By: Jonathan Monahan on 01-24-2023 Benzoylecgonine Screen Ql (U) Negative Negative [facility] Bilirubin Test strip Ql (U)O rdered By: Jonathan Monahan on 01-24-2023 Bilirubin Ql (U) Negative Negative [facility] Color Auto (U)Ordered By: Hola Monahan on 01-24-2023 Color (U) Yellow Yellow [facility] Ketones Auto test strip (U) [Mass/Vol]Ordered By: Jonathan Monahan on 01-24-2023 Ketones (U) [Mass/Vol] Trace Negative [facility] Laboratory - UrinalysisOrder ed By: Jonathan Monahan on 01-24-2023 Hyaline casts LM Ql (Urine sed) 0-8 [LPF] 0-8 [facility] Nitrite Test strip Ql (U)Ord ered By: Jonathan Monahan on 01-24-2023 Nitrite Ql (U) Negative Negative [facility] No Panel InformationOrdered By: Jonathan Monahan on 01-24-2023 Membranes Rupture (PAMG-1) Negative Negative [facility] Opiates [Presence] in Urine by Screen methodOrdered By: Jonathan Monahan on 01-24-2023 Opiates Screen Ql (U) Negative Negative [facility] Phencyclidine Screen Ql (U)O rdered By: Jonathan Monahan on 01-24-2023 Phencyclidine Ql (U) Negative Negative [facility] Comment on above: These are unconfirme d results and should not be used for legal purposes. Drug Cut-Off Concentration: AMPH 1000 ng/mL FIONA 200 ng/mL KIMMY 200 ng/mL COCM 300 ng/mL OP 300 ng/mL PCP 25 ng/mL Protein Auto test strip (U) [Mass/Vol]Ordered By: Jonathan Monahan on 01-24-2023 Protein (U) [Mass/Vol] Trace mg/dL Negative [facility] Specific gravity Auto test s trip (U) [Rel density]Ordered By: Jonathan Monahan on 01-24-2023 Specific gravity (U) [Rel density] 1.013 1.001-1.030 [facility] Squamous epithelial cells de tection in urine sediment by light microscopyOrdered By: Jonathan Monahan on 01-24-2023 Epithelial cells.squamous LM Ql (Urine sed) 0-1 [HPF] 0-2 [facility] Urine bacteria detection by automated methodOrdered By: Jonathan Monahan on 01-24-2023 Bacteria Auto Ql (U) None seen None Seen [facility] Urine clarity by refractomet ry automatedOrdered By: Jonathan Monahan on 01-24-2023 Clarity Refractometry automated (U) Clear Clear [facility] Urine glucose measurement by automated test strip (mass/volume)Ordered By: Jonathan Monahan on 01-24-2023 Glucose Auto test strip (U) [Mass/Vol] Normal mg/dL Normal [facility] Urine hemoglobin detection b y automated test stripOrdered By: Jonathan Monahan on 01-24-2023 Hemoglobin Auto test strip Ql (U) Negative Negative [facility] Urine leukocyte esterase det ection by automated test stripOrdered By: Jonathan Monahan on 01-24-2023 Leukocyte esterase Auto test strip Ql (U) Negative Negative [facility] Urobilinogen Auto test strip (U) [Mass/Vol]Ordered By: Jonathan Monahan on 01-24-2023 Urobilinogen (U) [Mass/Vol] Normal mg/dL Normal [facility] pH Auto test strip (U)Ordere d By: Jonathan Monahan on 01-24-2023 pH (U) 6.0 [pH] 5.0-9.0 [facility] Coding Summaryon 01-23-2023 Coding Summary HTMLBase 64 SiuncnmsXId9kBo+PGhlYWQ+P A8VYIRgG92aiDTqlX0kD9FZEP lOSywgQVBQTElOSyIgbmFtZT1 kaXNjZXJu IC8+DC0wFKRhQehdxNGso8R4w KY6R37loo7gOTvokVB9MPCsRp Vfnftso9lauYy5GNhsRedqLhX t ZDFezW34XIO0pH90Ep29oRGqq WJij3ejzYk0QqOjAXBrSAJ6eA gmXIkek4ChHWVgF88ipBCgc3N 6 NTWtpJigcFPfGtXhaVT2kB2nX Cmnnmfjt5qmnkjjLbs9is34zU Tby4C9dNS2C6HymnY8MAHcjJF g EyyodHFVpF5iuwree5pbvslzJ iKcGRDmBSc1TQy7FVVqyKgmOp JdSH95ZAU1EIRkloWnE4TmCRW s sAueYvE0v8F2Si8HM0PIRvqfT 1VNTUFSWTwvdGQ+XB20zv37G1 VhNzobUzp8ACHkYOC3bND6cS2 n HKIdISjxa7M4pYS4E9LecnDql k2pm7hnLVQzOEfiH43fjMBzv1 G7FBIrfNR1GBIycAytYzGdzU1 3 Oyc+VUXejEmhd6HkJliop4fzb 0tymGt6YwvcOQEcsgTmfZpjWT N6d2HtNv6tPBKdhLT7qOE5bI8 i BfIsVcG5WOweJ463DaCanQBnP dokN75gU5AtlLG+CDDiJse6GI DgzFtwGC1iG7GeUVJbsunnqXA m iVbhOM9tFNZssvhkTNXyyF0mM IPmS8q0JgLyLrQ0QZhvM0KxLA GiyexfXj22kC8pThQtRsL4ZJi u M7WbivE0UVGwbPCnKIaeATA3G 13nr4V7QURrBIBmQEC2gMB3xQ 1hbGlnbjogbGVmdDsgdmVydGl j FEyiEUssJ210RQCofKlvDjBeF GluZyBEYXRlOiAgMDgvMDcvMj AyMzwvdGQ+MWSlJQB7mWztKQX n fCIdJMskWt1gsKzwrSxhLF3bJ APmujwqNJLmlZ7uLKObvSZpdA ikUU1hXDNdifegq305VjXrUEW 0 HNUyoYFtZ2SqxR9aRmQzWMRoV GZoB5OqgTDzKOmwW563EEhyKf J9HRChvzVjJ1XrAWDhjDyeXuE 0 z5K7Wu5Bs4OjzlbqY6PagHTwW yFiZezjJMx2Q3BqHniqfKI+PC 75FMSxVR92WAv3ZUJ1tOqyIGw i DLEpW7SdyN9aCsSfGODqEXXrC yc+PHRhYmxlIHdpZHRoPScxMD LqEaLwaAliPA7mAz4bDZWwRXE v tAzfqPDrFcGsd4mpHYCgHNucZ G9gfLysB0VbxFI1VKQkd6i9Ei 44K62jW0EjcLP+HJSsiJA6rXY 0 jT1zXkIxBmK0ZSgiY747IkIgd SDaBnwul2jsw6qtmQc1HsA4BC KredHbdMktZMP8a7VfCy07H72 s IHdpZHRoPSIxNSUiIHZhbGlnb o4qiL0tUk6+VSOtzXP0mWO9iJ 1yHxGrZrZ1GCmiA477JdFabBX v Lvvsw0mfa0jzdIc5AlJtPSHwf oWidPkiFNT9z3YiKe46J5HvpA jym1GoRfe7px33iZBeu3D8jAH 9 E3GkCEIvcehzmEAgeUmrBR7rA ZXhyjtbHWYfrF4xYDUlA9h6Kj DrOlD8QFltB4WeviT7TXWrvGS g EMPueEPNqY7giwgvr3fgfcsiE sBfNXQoOFp7BTc0BOEezPutHc RlZOW5LfH9CYH4zZNufM6yyLv n vpjvqB4bYxo+GFK4cDSdyBDQZ F4xMhhhrXD+PKQuSLN0kVfzNV rcNNMvaF7oJVZrF0e7KyZtGnO 1 SZzzF7LtxcJ1UDSocOCpXVZuy GJLrG8enxldq8xgofhrSrXnXK SfGWd2CFe7MEPahNoyJnEwAXY 0 TnN8CUJ0rFYrbF7imFinmrsbk G9wOyc+QxjzdCowHKR5HRg4R7 SdIpt6QWZyqFhiNB0lcSCdKIp u Cd3wqKhueJnlXL4xVYWypaddl 342PhDap4scNQCanQClMDmvED Q6H66gi3E4HNCuNKHbHZV0xLH 4 aF5ppTepqxcchTHssZshezDmu ZxwQWpaHJbuI355BTApdTpgQq JvCCe1Q7EzKpv8LVIdxIwfPF9 n eOBxYFsmGz4kqNvweNakME1tG HFekoeof034ZsOan0usQQGetD NlZLdnFBR8C08gp7K5MOKgBYJ w QNK3iIC3nR9xuJpnvdjjqJHgg TxtkqTbaDinKSkhXLviH572ZI ZebHdaLwHsaEt2J2WbJyr0UML z eZpzNQ6xwYGpBBwoEv1ljJtgs PaqGL3lNVTljvtdj662FaQcn2 hoLHNpeCNfFSzbTJO8T70zy4S 6 CMOsFNGsYXM1kEN5fB7diPisq jogbGVmdDsgdmVydGljYWwtYW nvO375OPYepOqhEbLplBxkxaW g PShyUDc9V3EcJhclyRD+PC90Y UJrWN45jKNfgRHsp6diqSd8Qv KtXNIwUBN2tKzqUVbaw0HlJUQ t Q12saWOll6A4ZSAffKycfBKvB rLdrGA0wH5vRXagdmbeq6mvrv frOuyln8fvaj88mO16E29iZPx p DKWxFQXtWVElKUNseZzzzu5ar G9wIi8+QAYtcKE4oTO8pW3dOE EzGuJ6DIhpQ651DcHemWUgTqg j x6ila4oceJi9CxD7WYJifqZzo AahADB7q5WhOg43V54qEOkoQP PdLGOlTBKtKHDxiXovba9koB2 w Ii8+VHTwfTH6mQZ3nA7sMrZeV dT1JQjuR988ZmBrzUQfRcxfV9 4gC0EsrDJ+XPQuCsq1ECRplKu s AN7naAMyVDxnLv5bEAZ2QgChY aExZTezH5DnLCZshjmwofxbjK D5KQYqKSZxcB65Ro0okVelAZQ w eIZQbA5ixjagz1pavmvkCiXaN CXhKNk5LKr2VJIzhXhgUwJuGU J1UgE0DNF1oCJviV1rlYulhfu g zW5bK6QfXLIrtchkVk33hC0iJ iXpVaD0LByyIuf+R4xAD76KFV YKCOUWFB3AQUJIURrLNasueFX + WQUjFHU3eEdwAOzeXDZslQ0gP UYjX8n7ApUkRqZ3QZkoA0PzGB VoqbwmOr00pM4hNbFfJrS7CCn u B9HdbpQ5GKZtpTXkLSqhJFM4Q 39ue0A2TAFiKACnMEA7xVR6rZ 1hbGlnbjogbGVmdDsgdmVydGl j TJhgXAaaP870DWHuyBzgAhGjM pI8EzA7JWA4N6HiPva0YWXzhE hcYD1qiOUyYAhkEz1ceWavfVd g JW0lJBEoasvkWXKygP6cTUEgt MPraBxpDN7fLWKhoqctr529Tv FcEIM5KPMytXMtG4OivH4lZoM j EKYkHFUeF2ZyuTBsHKdzV020T LlmRvF9CXSoppZlG1VwSPCswA prLcA7z7E6Ae9hCtKZAJHdhjm v dGQ+VWNvBLU2pLokPRkjNZKbm N5pBYDkF4q3SuGwKrM7GSfrA2 SnKLRrnlbsCp06wH6iLkAiMxP 1 LOgkO5FohmI1GEKwvJWfCUysI JT2Q78am8K5GTByDBWqFMF4aU M4yT3xqJqovasiaEDasVniveE y nXdpDPlrFJchE544AUPtcAqaJ kZFTUFMRTwvdGQ+XOIpJAH0pF leDUrhBOLucT7pWFTwE4g9GbU w WcP3TJxcR1LaCLYysszcUw67n F1fEkYwPnE0ZDujX6OtijI4NX AaxMHqYZxkGYF4A87oy9B4FZX w MHPdUNQ2rPL8gD7rlSquovyia GVmdDsgdmVydGljYWwtYWxpZ2 10WLQfkJqyOj7IWY48JZ92K9L y PjwvdGFibGU+PHRhYmxlIHdpZ JUmJRguVOZaTiBdmYaaZY2xKy 9tQXWdNYJhgOlyzIArFzEeu9o s HVNmVTrnAZ1foQafO3YczZA6J VLql3z3Pw30G80xZ3YghIH+PG HmmXY7xIV0bK4pWxOqPaB5UMs p R044LmHxnGZkBcems2qhb5pfn Oi1KaZxNELbfhEhrFgtEQP1n0 FtQr38S44sUPcnFEEzIXEcCXO i XTRydUffos6mrG6oQt8+PGNvb NC6gLX5kN2zQgMtJwL5GCzoG9 55HmNwrSBcGgdgB50lR4VqsWK + RPJmCal6YUAxmAzsXE5iuAIcQ ZhxWr1bVHL0JhReEqBoMIxkO1 JfKFRwbrwybqrmvAN1RHIeIHY w fK62Hb1xkRloCe3rSHTkIXR5A NSleLVvE4YlpR4tWjGqPBTdPG TaH9MicQWdIYaeJ943KZkkKoE 7 YGFqylHbW9KfYJEheYrdSoE3b 5W2Kb6QfKgcsXPrQA3tCcIjNU j2M0KfQuu1GLPerHrrYT9dzTD k WOdwQo0qtCsdnQrsWC5jCXBch immk366XwTmk6wdCKPkeNBgTD ceIGI2J84tl2L0UGBbLLDbJRM 7 mVZ5hF4aeUxcsrgdzNWfcQwvq aDkdKcnLJmjSHilH142DYZspW hdJbHOTff6R1QuEnu4DHBhsXm s JR5kpVFnTVrhIj1hsPacpEwiA V0uLNUuovykv455ByQbi3siEL ZwzLQuYGdsHEF1B96ad6Y5FKH w EAUtCOS5tQT4vI1xmQxpqkmzu GVmdDsgdmVydGljYWwtYWxpZ2 43WOHjcDjtTw2NVhi8H8BgInz 0 UTAtyTwjFW8tgBVsPWafGd4ki WracIgqRB5dOOHyanfmf168Ft Mqs4xeEGZomVTjPCdrFTE1F76 s z2U3YEUkXAQkYKI6rYQ7bG8bm GlnbjogbGVmdDsgdmVydGljYW owQThlT461GSYxoShzXbDioUV y OjwvdGQ+WK75xc28C0EoSkafQ tk2OAKpFXX0zIM0rM0bSCQrYZ dyi7B0pUT3D8AgpjPmvm4xt8r s YXB (more content not included)... [facility] Coding Summaryon 01-19-2023 Coding Summary HTMLBase 64 OyhnxnaxILc8cPx+PGhlYWQ+P T9ZKSQtR24ydIOazE8zJ7UEEB lOSywgQVBQTElOSyIgbmFtZT1 kaXNjZXJu IC8+TA7dVNAeJfsbiDKuk0E5i PX3Q84fzm3qFPxorFP0YXLuLl Iswrehb6drwKg7NVyeZqhvTuW t EZVklC02PTD7lN60Tt52dPCvp KVul7vtcMa7KwMbUKEwMML3pJ paXGfjl1AeQFTtD42ooGVva8K 6 RTYjvEsoxNIaNdUnaMY7cC3uZ Gjlbgmhc8swgtowYnm1dp31tU Jtz8M9kNT1W4VtswT7EBElvZI g IkibkNOUhM2atwuuv5nbouirC pSbWFQzZEt1SHl0ZGQfvBuuHn VeVU43DAA5DVSzsbCdV3XwGDU s zOhlUvS9k8F5As9WJ6CCYuzzD 1VNTUFSWTwvdGQ+EG20ks88D4 SvRcabTtu9RFUwILS6sRQ0jD7 n YGCcGZbxo9H5hPI5T8YzcyKng z7ds2vvUWWaHHraE90bgBVkt3 N0BVYrhIU7MWQvjDnvFvXnyU1 3 Oyc+KHSijFbpn4MaNbwki7uwj 6yewYk7TireSIVtnuKzuQxnSO J7l2TiTw0gPWQicCQ3vAS1kH3 i RaTgNkY0ATaxG029SqRqwOEpS udsV98xZ7JqlQQ+EFUeFmf4OT TlsJwdRK9tO1WbWVFuqtfgdUY m jAeeWU7jNAAgypqzEJKlrZ4vR YXpX6e1UaRgNmJ9KRscM1WsII VonbrpSe60bM5nHmTvFxQ5MKf u L3DvoxO5JRRsiIUeCImmTWX4P 58be9Q6SVCgEZSmFVR4cJQ1tP 1hbGlnbjogbGVmdDsgdmVydGl j RHoaHAeeT664UCSzhGuqUsFgC GluZyBEYXRlOiAgMDgvMDMvMj AyMzwvdGQ+JOAwSFD6vYpfSYY n wPOgVRvbMl3mgEwjuNcoIN7wW WPzmtdgJRDjtP8wHCKxgJDdcY ioDX9bNLUlatreu774DyScCRV 0 BUPjzZDiZ6MxuH9kInAsLRWtK CNjC4CrxMXiNBluF465WJygIw I0XVMlwaPoY0ZdJNPydNtpMyI 0 n3T7Vb2Ov7AtcplyV7PlqKAeJ yGrWqagDTu1L7PtPevtuIX+PC 18BXWiFX11KMt6QBP2uSntPNr i TQNdM5YosN5pZwQdLREsZWPmQ yc+PHRhYmxlIHdpZHRoPScxMD DoVrXcxHjxHL6fSu8eFGOtMZB v tPmhcIJkLpZqz0hlXVHpJMrjH H7auHmaU9BdaKB8MOJsz8b0Cv 45I90zR3GtxKL+CLWyoVH5tQX 0 zS3tRvPfBpX8YIdyK158YaAiu NMxZxdsl5bep1jisKz1KiU9SE ApzmZvrJvlPQZ5k5FdXj57I88 s IHdpZHRoPSIxNSUiIHZhbGlnb v9wtK1aEn9+KHRtwIA8eVN9cW 8uUyShNrI1KCgkE881AqHciJQ v Wctgy2ijt8voaZq2WdFsAEAda kTieLeyMNT5d1IaDb79N0HkzV bzu0YlDhb3fu00rKDvv9L9gZA 9 A8QvKFVtntqxeAGwxBjxFT1zS JFuhoqpUIIfwP2pQEQuL6y7Om JeSbK1IWqrU4MddiX1YZLraIM g JKXxbHZIuD2wfvnfo9juidvbY eFzHWDoMAr5FRt7SFCvlXncPp TvLBH2BsS1FMH4iBPrdG2lfVs n miebyA5nVyy+RKO8mRLjsQIQY B1iVnkipBH+FMHvUON5qEcbDW toFMSqcA7gKOJsF7q8PjOjReP 1 WMajF1ZamfR5IISnuDQxFHRuv BCWkL6luzfbw3kafcozJaSoGO BnUKd3PDc0ONWomPwtHdUpBWJ 0 MfQ7ZBV6zNRssH0xhLxcqxink G9wOyc+DiddwScrHHE6LWf9Z8 EsMma3NGPisOmiXZ7tdYHtJCc u Ha7beYuipLvdPQ1zJMTicntmd 907TaHvp9iqKRFjsVJrLVfrZN I5V98id3C0LQWiKOLfKHC9sTW 4 tV8hhXatgddkbKYzlNvtxjIqq KinZAogFCdfE800HFZzbTnbUj FkEWn2F3BuDxk9QFVkxAzoMZ4 n jHYeBNpuUc5slMfhrDyjZC1iN VLbkbbty783PxEad6dwCYPecB RcOOveHHR8F08jb7F2PKVtRRO w TFG2oGC5qU6saDcpevdqzOAlz FjuidDwiEkmGClgVVnoT386ZA RfyVbsFrMzjIv4H6FnJyi0XQT z mSrfZX2ydZKuPGaxHh0tdIevs WhnAF5yNXZcdwuyn102SlEzo8 irFPBtmTCdINsiCDN3A94qm3I 6 OQJwOKRcAWS6dUE0fE9tfKrhv jogbGVmdDsgdmVydGljYWwtYW wnP832NTYxzRrwMvSknTvrclL g OGbyPUj0I5AePsoxoTK+PC90Y QAbHB96zIJwjFMvz4slwVe8Wy WdLLObHAU8gNahLKgxh4CnUAZ t T83udCUid8M4KGTjyZvriKCmS oLcqFT0bO8uVAykarwys7nhfu gdRjtvm0bxxv54zR44Z07vQVj p FMPgOXRiGUQoVDDgpRmfcf7ky G9wIi8+YPYcaAS1gOB8eR1dLA NzJeO2RGdwD084NoCxmXMbOna j k8nzf1udyWe5XuW9SHJqlkTht OadETL2k6FzWs46W55zDZkuWA EoLSZsCNAiIPYgsSilmz6njA4 w Ii8+TCCjyVP2oDZ3bK8rWaHsL bG7PKwtK247BeAwpMEpVkzqZ7 7sT6JvaMZ+PXXhVtg6LFGxgHg s HZ9biBBwTGflXc7aKZI6QmAvX eZhMBzmN2KcLLIfgpplcansuI M6YKXgZKQnoZ60Aa9noSigMQE w hQAKxW8jwvuiz0zwtmxgRzZsT QIjVQf3AEu9HVZbsPptZvJtHW U5FzH8FBV8lQOovA1ogJndxdm g hV6sZ2QrHOLkcmlcKq84hH9tU sJiZiX6GTqmKuk+M4vAD46SYD QVOBFPTV3NDYPBGXyCAhasbKW + ZLSmGLK0xWvcSMtnEIHmoR6kW CInK6z2PdBcIrE4VVqoN3YfIQ GpyyimVx99zP2fHhAxNgI3NHa u O8CxfoO4IMYnmMIkGGjuWEH3L 28zy5Y1XGSfBBMgRCB4rFR1gN 1hbGlnbjogbGVmdDsgdmVydGl j QCipGLezH289EPZwvAyyRoCoG hR3GwW6BTF7B3TuKvp4UZXnlK oyRC3reEZgBTqoAg8egXcrbSk g XE3jLKFdtoxlBFOdeF2iAREqw AIauJdkPQ7tRCMlmaqtz280Gi JnIWO4SZLqaSSsH7HivT0hOoM j JQAbIQZjU1JwtKVxIJceS903Y ZcjUzF4HZZxbuDaB1OiGSRkiT fzRoV4l3K6Dq4pXtFYMXCkfxk v dGQ+IBXaBUT4eOfuRFmgQTIfx T3kUPUiQ6g0RsWbWqX0RVpsH9 FmDAVllxuyPl32eB8aDcOwYhW 1 GBhhP8TaupG3UJNvuLScVTjvX NR6Q12mb8V7FNRhSIOyBEC8rQ O9yG8vfLsjxmeyzLQegFbuamT y vXcoCSrdQFdbY982UHJrmEktU kZFTUFMRTwvdGQ+WLKdNCX1lE syVJrgREPvvD4oTHEpX2w8KaK w SgU3BNlvT6XnSLAdpkdcLn77g B5vNwXpEkU0HIyeO8GrcxW6QR LkmXAqFQvcALR3H64ip7S4ZBR w IKLbMPO7oMO8iQ7ecFgweqzkq GVmdDsgdmVydGljYWwtYWxpZ2 71HTHcqBqfBtQdHFDvFG7wwZi v dGQ+CQ69lh83V5LjUipzVdk4Y TPvJVI2kZN7gF4hKWKtJZvws4 U9jJB2Q7HfutPdef1xh0roYYS z ZNuvZ17dnOFpm8W1AUQacJV7R PRryXnfNhFvnK42Tnk+PGNvbG niu2UiAvany3vyx2waeXk6VoW w ODDrwfBgpVpzRYQ8d7JyOl48H 29sIHdpZHRoPSIzMCUiIHZhbG peag6bbA5hRa5+WRScbBM6lAO 0 sL5uRoZvAmM2MRwvO842TdBur PVnSffkf9kff7cqiWg8FcBvHN QsnwHuuLmxYJM8i4JmVr20H6B v hLfha0LgHkm6up87lFGlk5M4u RB9B7CwRZOwmhjiwKBopEykFL 9hICUwlffjKOKkqH0yMJDsT6c 0 WdUrVkA3IFoxW0SzcsE2HGQkv DVsCXHcrUXRmH6tapkzt9ducs ecSeSxDFJtXXr2NEv5HBZgoGs u ScIrHZV1NhC6QLI4xLRqcZ9ko QezuruztM3tMyq+MAj8g7akwU HiJA8dyNZ2DY72MH79rUXil2E 5 wGB3M0GeTMMwotntmulznCA3H NDlTLChwZ19Iw9elEvvPp8nOI ZfIQW7KFVviVNgL3DgzA4tYoJ j JAAlDXNqP4VnnKGdQTfcG197W VifDnI4YNDvxdSeR6HmUZGexM xcHdL3k6X8Sl3PXU42RG98XO5 8 tLOrf2C2sKV7P6HjWYOfmybah ylnwCY2KNArLXUsbY58Nb3ozL cdWt6tOYJkDSU5VHDlqBOaL7H v qU3tEzEnCZTiGWIcH2KllRQdH CswX775FTgqAhM4AHBiaiHgT8 BkGVGdpOenOyE8o7O1Gj6WQx1 6 AD83FQ73vQYiw3G0gHU8V3VrP ZZdosuonhtnrVA4KBTiPDWnyB 99Qf9ipWnxTz9sMCCnVIG3NXR p bSPdT3UvqZ4xApAaLXUlWFLxP 0HzpDRmWBiwD709ZKlnIyW1BI WpdpJeC0BsRBBntCrnKhB9b9A 7 Po5YSWrbgju1T2ZcQfmiqNW+P P53UFEoSK18xJAouFLcv1vttM z4ZwOfAOGpMIV3tDpyMQpxs4X k ZXI (more content not included)... Normal [facility] ED Clinical Summaryon 2022 ED Clinical Summary [facility] ? Urgent Care [address] [place], [place] [address] Clinical Summary PERSON INFORMATION Name: BARBRA CLAROS Age: 27 Years Sex: FEMALE : 1995 MRN: Acct#: Visit Reason: UC - Shoulder Pain or Swelling; RT ELBOW/SHOULDER PAIN Arrival: 01/16/2023 11:29:24 Discharge: 01/16/2023 12:40:00 LOS: 000 01:11 Check In: 01/16/2023 11:29:24 Checkout: 01/16/2023 12:40:00 Address: [address] [facility] [address] PCP: Provider, None PROVIDER INFORMATION Provider Role [...] Sling Follow-Up: With: Address: When: Simona Holloway [phone] Within 1 to 2 days Comments: Call to help find a local primary care physician. With: Address: When: Return to this practice DIAGNOSIS: 1:Right shoulder injury Patient Understands: Yes - Patient/family/caregiver verbalizes understanding of instructions given Comment: Normal [facility] ED Patient Summaryon 023 ED Patient Summary [facility] ? Urgent Care [address] [place] [id number] PATIENT DISCHARGE INSTRUCTIONS Patient Information Name: BARBRA CLAROS Age: 27 Years Date of : 1995 Reason For Visit: UC - Shoulder Pain or Swelling; RT ELBOW/SHOULDER PAIN Arrival Time: 01/16/2023 11:29:24 Primary Care Physician: Provider, None Attending Physician: Esther Friend PA-C Comment: Patient Education With: Address: When: Simona Holloway [phone] Within 1 to 2 days Comments: Call [...] strengthen the arm. General instructions ? Take yhky-qog-ozjpdmd and prescription medicines only as told by [...] provider. Document Revised: 02/18/2022 Document Reviewed: 02/18/2022 [employer] Patient Education ? 2022 [employer] Shoulder Range of Motion Exercises Shoulder [...] care provider. (more content not included)... Normal [facility] Amphetamine Screen Ql (U)Ord ered By: JUANY CHOI on 01-14-2023 Amphetamines Ql (U) Negative Negative [facility] Barbiturates [Presence] in U rine by Screen methodOrdered By: JUANY CHOI on 01-14-2023 Barbiturates Screen Ql (U) Negative Negative [facility] Benzodiazepines Screen Ql (U )Ordered By: JUANY CHOI on 01-14-2023 Benzodiazepines Ql (U) Negative Negative [facility] Benzoylecgonine [Presence] i n Urine by Screen methodOrdered By: JUANY CHOI on 01-14-2023 Benzoylecgonine Screen Ql (U) Negative Negative [facility] Bilirubin Test strip Ql (U)O rdered By: JUANY CHOI on 01-14-2023 Bilirubin Ql (U) Negative Negative [facility] Color Auto (U)Ordered By: LEIDA CHOI on 01-14-2023 Color (U) Yellow Yellow [facility] fibronectinOrdered By: JUANY CHOI on 01-14-2023 Fibronectin. (Vag fld) [Mass/Vol] Negative Negative [facility] Ketones Auto test strip (U) [Mass/Vol]Ordered By: JUANY CHOI on 01-14-2023 Ketones (U) [Mass/Vol] Negative Negative [facility] Nitrite Test strip Ql (U)Ord ered By: JUANY CHOI on 01-14-2023 Nitrite Ql (U) Negative Negative [facility] Opiates [Presence] in Urine by Screen methodOrdered By: JUANY CHOI on 01-14-2023 Opiates Screen Ql (U) Negative Negative [facility] Phencyclidine Screen Ql (U)O rdered By: JUANY CHOI on 01-14-2023 Phencyclidine Ql (U) Negative Negative [facility] Comment on above: These are unconfirme d results and should not be used for legal purposes. Drug Cut-Off Concentration: AMPH 1000 ng/mL FIONA 200 ng/mL KIMMY 200 ng/mL COCM 300 ng/mL OP 300 ng/mL PCP 25 ng/mL Protein Auto test strip (U) [Mass/Vol]Ordered By: JUANY CHOI on 01-14-2023 Protein (U) [Mass/Vol] Negative Negative [facility] Specific gravity Auto test s trip (U) [Rel density]Ordered By: JUANY CHOI on 01-14-2023 Specific gravity (U) [Rel density] 1.007 1.001-1.030 [facility] Urine clarity by refractomet ry automatedOrdered By: JUANY CHOI on 01-14-2023 Clarity Refractometry automated (U) Clear Clear [facility] Urine glucose measurement by automated test strip (mass/volume)Ordered By: JUANY CHOI on 01-14-2023 Glucose Auto test strip (U) [Mass/Vol] Normal mg/dL Normal [facility] Urine hemoglobin detection b y automated test stripOrdered By: JUANY CHOI on 01-14-2023 Hemoglobin Auto test strip Ql (U) Negative Negative [facility] Urine leukocyte esterase det ection by automated test stripOrdered By: JUANY CHOI on 01-14-2023 Leukocyte esterase Auto test strip Ql (U) Negative Negative [facility] Urobilinogen Auto test strip (U) [Mass/Vol]Ordered By: JUANY CHOI on 01-14-2023 Urobilinogen (U) [Mass/Vol] Normal mg/dL Normal [facility] pH Auto test strip (U)Ordere d By: JUANY CHOI on 01-14-2023 pH (U) 8.5 [pH] 5.0-9.0 [facility] Coding Summaryon 01-12-2023 Coding Summary HTMLBase 64 CajnsdsvRWn0bEw+PGhlYWQ+P K0PTTCqI00fsFLcpT7vG5DPRJ lOSywgQVBQTElOSyIgbmFtZT1 kaXNjZXJu IC8+OP1nRMDtZsxtfEOov0V9c HM9R69vgb6vDDfvxKY6JPWiRs Plonknc9fawCa4MMxaQhddXkF t JJFanG48VLM1wS41Oa49uFUvz HKaq2wemQq3ZwLsJVFkGOU7hN leUPmqx6NiDPNfL96yaCDvi1U 6 LOKsbTteaVHfVoVknXK7lK1lD Acatqknq5fcdzweGux2qi97pN Nqz7L9lFP5I1PcmnV8OQCtsNQ g MgxmqCUScE1nlxchb4sslfomU oIeMJVwUAw1KKv9BCBanZujMh MvPY33AMG8LXRjtxVmR2LmNKN s iOjjBsW7p0E8Pb1CD7LHVamnK 1VNTUFSWTwvdGQ+FO96yl99Q4 EuSblyHva0VSYeGRS3qUC6nX5 n IKOaCLbjo2P8xGG9Q1OsuhMxp y1tl1kzMZIlBYxlJ32emMHad9 C1FXIycEL3IEWdbChaTyNblU9 3 Oyc+DVEooNmtu3PrBkhby4qad 7zncFp3YnxqXYAunmRiyAadUX S3u3WsGk4pKLMrdPG7kZS5tL1 i TyHzZnO3TPmiW326TlAypKQcT plaQ77pC6JduPX+IWFaEjf7QR QsgRwqWT8cK5DvMJFawjjygIK m kZwpOQ6fZPUztrekFJQzqC4cF EBkP0b4TeRuUxZ8NMszW1DfPM MeicddBk89gW7tNiZtKdI0PRx u F1GuvvT4CELmsGUqPOgxPLW6W 85wm3H9IBPwPHUwWRI7lYK8kR 1hbGlnbjogbGVmdDsgdmVydGl j LRmgJYoeV789OUGwdHhuLaHoG GluZyBEYXRlOiAgMDcvMjcvMj AyMzwvdGQ+SMXcXDX5wPchUKO n vAVfLWwfIu6ckEsjiQgjRZ1dR NMcdwiwZYBuxE9aSZKhgTQxtN jgHC5vXNZyeriez740NoXdUSM 0 YTYheVZpC1LnwC9gDvBtNRAbE GLoB0AsrEYnGJxaM508INbhUy N7LIZybaVlW3GoCGJghEiaOsJ 0 f4P5St3Ra7UikumwA4HweLNoP bQlBcwtQRh5O6NcLdxuoBP+PC 12SKBwLV33MVy8ONS1vDvpNTz i TFMnB2YvlF9zZxUjTNVxUYWzC yc+PHRhYmxlIHdpZHRoPScxMD FkUdZowQjvKB4oDx4tNTVwMNY v yLubuAJfWhZup3sqUBGnSDuiP J7mkJaaN3CiqAL8CZRtq7o9Xu 51J32qQ2SsyLP+UFVraQJ3bJH 0 sN5dOnIlQoE5FDifT847RuCfx IRoWvkpb3vuw6dgbSs5TtK5JF RhbbBjzWqaZFG2o9VuBj19Z90 s IHdpZHRoPSIxNSUiIHZhbGlnb s0kqJ0lEx8+XWVbbSB8wCZ8bE 0qJtFqLsX1USohZ769YyShkZY v Cqhxa8nuf3ciqMe1LyUaUMWzx qKccHmtBHT5h5DgYj77Q8HpmZ god2WhKvz4ag99gZYxu6X8xNM 9 Y4CjKBXaekmlgUIvuLrcLS7qD CKxytpeKSHooR8aKSAuL3k8Fu MfRuS9DSvyN7IpiqR5PCXgqJF g BFGijPJPdI8sgnlmy6syuqhbI aTeHBNrIUa9SFz8NJExsXscNe ToOMC7FeE3KTL1cRSaiC8gxZv n uplxeR0xDjo+BQY9eCJnuIBJR Q5wPpgcqWV+SBUkAUQ4pTivDG mdSRKipC7mEMPiE3m2CaTsIvV 1 ISjvH3WrhmS5PMIqjBTuSNKsc ZUFtE0cituzz0ndvxxhLeYwTW OzQOw8BDn8YTPrvNglZdLiLCZ 0 IoO6CYM4fVEecH3qvHuodveck G9wOyc+GulcxFdnHXT3UMo6R7 SgGzc9UDSmrBvgDB6ihXYrXUq u Zt0ujMbohCtkPG7cQXKwgyhko 978HjVtf4lrNQXjlVPpGXgoSX X7J65mr1S1WLYcRCGnYQJ6sRD 4 qL1nnZnhqgjngGRbwNzwjtIrx BftSAulSVrdW978CIDswSrvFk JzPLo1Y4AwUjq6KTNrrNsgZU4 n mLEwEXdfDw6nyCqrwEwfKX1gF GJztavia889YyIfk4upBKKwpU GhFCdjJWU3A00na7O2LPWmKBY w SFR7iDQ6rR4wbVkobaugdSNiq AabtlHhyOspVXweQXlsP003XE WupAqvZbMofTv6E2FaAug6GQH z bEcdUR6svFAaKRwfEw8boIkhd OuoXJ5iDTAahuzwa284WjNuw0 oxKEBdkJRnUHjoUKP2G80ay3H 6 DKFbUTSqTDT0cCA5zV6duGnzy jogbGVmdDsgdmVydGljYWwtYW gyR109HLAgySvqPjNnuRidslC g MYynNEq2Z2IyBgovpDM+PC90Y MHgBK50jXLamEOij3zjpOn9Hm GlFIXeLWB4oDzaCLntq6CcNRA t Q17zrORnw0Q8JWQpqEatoQYtV gVrrVF1vX9lKRsrsnrmv1rswk hhMwbqu2btuv94cV35O17oLWf p MPPvLJMlFFYtYUJvcAakvm3bv G9wIi8+ESEedWQ5yZG4bC1mZJ EzDyY0EGriW997QeAxxNIbZts j h3mqv3gvrDy9UrB7EJPosuIek BrpBZN0v0IhMf32C36nGImsNG OpTAApWKIeDVEkpPbiui2zpL0 w Ii8+GLEcdJW3mYS5uK8yUyAhY kT5WTgpQ072CuZpyAPdEgwjS2 3sF8YirPI+DQTvGhl4NZXniKs s HT5acFHvVMigZe7bQFJ1SwCeN aGaCVkdJ7NiNVAdykqlyymzvJ X1ONNdEOKfsJ44Yv7lcMuxVXC w qJOIeQ9dvjjne1ktugqgOtTbQ UKrLTs1SFm6QMEygEycPyMrLW U9IbV3UQW6fQVvoO6qhMjhcwe g dW0aY5RfXBXtelufCg58mI1tC uCxTzL8XBytJvh+D1yDE11LSZ UDOTJQLQ2MBQGCRAyKGmmqdQP + XSWsQCE0lJeiJJtdSJAsxH1zO KVcX3x5PyBmCkL4BXiwH5FvJJ MohrazSz20yF7xUjKwHdS1DIu u I1JhacZ9JIUthZDcLMnyYTK5K 95bq6P3JYUxRGHnJJX9nMR0wP 1hbGlnbjogbGVmdDsgdmVydGl j CUdzBQtxH647RKXcvHzrTaNkW eP4HeV6DFA8N3DnPyh0LNCbiH iyNX3ceFMgGNgdNj5veAxnfEc g UR4pUACdvkqeZSAydH7dVPDcq ITsiPzyRB2wOQAinkuyu229Aj NqSTV3OLBqpNFbA5ZklG9sJjR j BVIeKNDgV0JqaLOrPNsnF369T UgwYnA2LBBnpeHzN6GkYJXdxN hxGtL6u7L3Qv1wUyDMYIOrybc v dGQ+IRLwBQQ3wHqwAHusABLlo B8sJRTnU6e0YqVvQpY8CMyhZ5 SyJHIeqmejDc33wQ3sXePaNcA 1 BPxkG3AivtQ8IQDdyXZxIVlgS DQ4M87vs7R3DCXySHLvRQM1sS O3yA2daTpdxrmgcHHosMyhczV y oKczBOupLLcuF903GMDczJmaK kZFTUFMRTwvdGQ+MEYrZGE3nG tvKUajZEFzdW9kKAFfU4j7MmY w ZoV7YUhhI0HiXACvjxlwDa76c U6zUhHiRpM1BEpoW1RimzE1EF LtiSLyFDzkVGY0O63zq1A1OGR w KMKdRUH6oPZ7wX8gkFkjuaaao GVmdDsgdmVydGljYWwtYWxpZ2 66POLhaHsyQg2GRO40EU98S2O y PjwvdGFibGU+PHRhYmxlIHdpZ NDbLZrqNHFiOuVeyNumPV3yRc 7jYXDuBLLxmPzreVCcBwNwn3c s XCVhUTirWQ7ieDjdL3OjtJA0R MMap5d0Du81M61yF4SdtMJ+PG XpbUR6jYK5iB4uXgRvIlB4IBc p U486KdQygKQtHbmbp4qmd0ckj Iu6LeXcVQWwnvIdwEncSCZ7l9 IlHe12F43tQKydWKJzTVYxTIM i SURzuXuhzx2yxS3hDw7+PGNvb UB3vSM2lY4cOhOpZwO8CUkiA2 17UeUyfCLwZotpN60cM1PxlYX + IOMhHhx4EQKftExtEK7skOWwA TdqSw0zEAN0XlXdAkEhZYyyF7 UkBDUimvpcbqeqtCV4VIPiIXG w iT73Ml5uyWfbXv0oSSZzAUG0O JIauYZlA3GbwK5fRpNrUHPgZL SlG7MvpMLyNAumV836ZZptWfY 7 NAAxegIhQ7OeBXAkdCznGmA1f 3R8Ta8FeQweuMTaIH0fIzFgEL c0M9HjHzo0PRZcoZaeKL0fvPR k FFaxAa6puUsoxNaxVQ4oNSMjb zvcr434HcJil4eaZMKhzTVmGC tiUYC9W41pv1Q2RNPkGNPgCOA 7 gPU7mG0abFxwyjjvoLUcgNffl rVvjRisVUvrPFyzQ399WYNjoS niDlKVVuz7X1TvWku1KQFldUj s PQ7zzYRcWFktKp1agBfjyEhyP B4pGKMiplplh996RuYyf5enHL SkyJWkXIluGIJ5R64sh3U9YLD w ZNHvUBO4aGN8zN0mcZajijvgm GVmdDsgdmVydGljYWwtYWxpZ2 81ZLJvjExuAs9SIfk4R5ElPfi 0 CYWeyRqqOA5weYHgKNagTp3um DfvmMvzRZ3xZBVrxvklx948Pi Uof8gwUIBqfPOjYAdsMLH3J61 s t3O2TUYvCTRuJOJ7tPR5eE5fq GlnbjogbGVmdDsgdmVydGljYW wtOJrxS477WQSusXtkHpEdkII y OjwvdGQ+JB78tn14Q4JlQgdkE mo5PBYmUNK6fTJ7eK0gWTEdJU zdq1T4lJY7R6JlkcDglp5ze9p s YXB (more content not included)... [facility] Coding Summaryon 01-11-2023 Coding Summary HTMLBase 64 DvkyeewiXYu9jEh+PGhlYWQ+P A0FENFcM62jyRIwyT3yR1ZKMV lOSywgQVBQTElOSyIgbmFtZT1 kaXNjZXJu IC8+NS5rVDBzAnkunWMtb5Z7w XJ7L24tan6yGAfaoYO8EYJpVr Vsmrhpj4ghlYk4UDotCvfjOtE t VQTpvL85VST1jW58Hp08fVRbk VGtc5sdlBb5SuRtSUCvRRX4dS peXCsbw2XjZWJkC92xrHQzm8Q 6 MDWlmSkjgBSjWyRelGJ8hF6aI Omdiiycg3dpmgmvKtm7si45sC Ves8N6vRW7V4NxfsJ1ABUmnWB g JrhvwNZGsC2tfiteh6ugwfdeZ gUbHNUrNRc7JSe4CBGaoJjbWn MsRA83KHR2PNBpksSbF0HsGGE s iOrcXwA3y9R9Dj8MM5OXRgytC 1VNTUFSWTwvdGQ+GF83af56V0 PdUbobApe7DLDdTHI3xZZ0iG5 n IJXfULbst0K8oBZ0D6VnsoPbp m1tb6njAAOmMEsuN68fyYNws8 U4GZNguWV9TCAprVauIyTokM4 3 Oyc+OFSztGtpk4GdTuaxs0trj 0xpnLs0EibfUAZobyObkCjjKP V1a2KeGz5mVAYdrGA7mYS9mR9 i CcMxDvP2CHpzO983QbNhoLGyG kpqM18xI6PahQJ+TNAbOic9QV CpwUkrPL5sL2YrUOSfvelcgVP m dUdgZS1vKZEfkupjVMRoeL8mK PCwT0o9RpRdNmI8PEzbM3SuZL XeqikfVx22qO4iZmNrKbE5IFf u P5FnzcA9YFZhhKNjYTouULQ6I 72kt0Y9RXDmTKFoKTH5rPK8kS 1hbGlnbjogbGVmdDsgdmVydGl j LMrgRZlmG252SRWfsXuyWxStR GluZyBEYXRlOiAgMDcvMjYvMj AyMzwvdGQ+KWBpLDL8eOetFUE n oTGgEIsxUx0faKhueCejFR3nG YNzyrfuLHPptH7vDIXixMFjoD trGP7vABLyqorzq550JzKvYSD 0 TZWohSDqG8YbmQ1jWlGtEQVjL CGjD6ZmfYLkBRhaF656SHsuOy G0CCZvemMaV6TqBBLevWzlLeB 0 l4X6La3Ut5IuolxyX5UmzTOsR zPhKnioVPc6Q9NnQhfhuSW+PC 68ZCAlGO82RFz2VLV9bSdgSNv i ONOgG5ZrwA9sQgGcXMHzFXSpE yc+PHRhYmxlIHdpZHRoPScxMD CzIxHghEaiSQ6yRx6eHVQvEBS v xYamsTBaBdToo6ckEGSsTGzrT W0nmOvbM0ZdjOZ9MVPmi2u2Vl 61M74zT9KzpCW+MZDwyPX6wXU 0 iZ2pSlMiHsX2AChiM546UyXsn ZRzRnqgm1zcs2aenMs1PzT3CA ZtsaHmoNwnGEK3a1CjCt57V60 s IHdpZHRoPSIxNSUiIHZhbGlnb h7vhR0mTd0+JUBqjFX1aAL7kQ 9oAeWxEwQ0EZhqQ027RyAdlMN v Jjdik1fub2gumXw3DyHjPAQuo sSojMuwPSH8e0LmPz33D9PvtP jvj7OaClj3kl64jGDfg1R2hDB 9 W5MpGQYhfpkvvOIycAuwAJ4iK GSerwchKQAcaQ2gHRShT1w0Fe CcHhJ5FPwqA2ShkbF9UVWpsXQ g MDUmxOFJkL7mkuwyi6uhjcoiJ jAfFYTdLJh9CGf1BXGskYtmBg YeCEW8TlK4QCU4cAZndX8xtXw n cmdekF3mZcn+LKY8tPVdwHSAM N8mHkcrxQR+QFLgGHF4dMsyAO knLVKtaL9lFMUfU9w8CcHmBvF 1 CKnpB9ZmizG9IIIzuKWkVTUzd MJRdW4wcxhts0svxjqvEkSfTL UiFSl8MXe5XEZolRvaLoGgSJV 0 ItA7DXF6oMCckT6ygDsrmwval G9wOyc+MhtxzThzNLN0ZNb3X1 SwZca8HKHnoYamIE6qjJUsSOu u Md9slCqweYcsJR8gQYOgnlsyd 868QcMwv4mfTCDzwDKcFLiuDE C4B17br7W6DXMmKRYmLXE7wMH 4 vY3kuGbcnlwqwLKxbSbemfLqs FnmENqjWEhwQ042WDQidTyySc AzLUx4F9LmDbk0TLEyeZrzFN4 n iTBhJCpzBz2gqBjqjZfoRF9yW BNyyalqj182FqXrs5loLFWbfB DoLTzvOGW6M88sg1D3ZJOrLEU w APW0pIV5jR0blCookojpmVExd LdcklEmnCojAVqhPXblS632KM ZzxIlpHtXbeNi5X2VyBnd4GDP z iUmfMZ8mfREjAYcxEs2wkLchk SpxTU7yYMYanujed356ChAeb2 oaJUDepTEbCMbsMUQ9X97pf4J 6 EDKcRXVkUHN4bGQ5lW0rqTjea jogbGVmdDsgdmVydGljYWwtYW heS945ANGrkGfcCsXdxVpqmoF g WCemYBr5A3CgLlxpmJN+PC90Y FIvOW82tPWtzCVkb2zgmNb8Ww FtZBYmUQY5wYioLAwwb6ElPHU t I18awASfo4N0JUAhzNdfoIQkS vXxkGH3aK5aYEurpeibc0cyga okGprgh2jklf15xW25X67mXOt p QQByXDNbPUOrLMPgaYghmk5qq G9wIi8+IVEazMK0oFI8mY8cCU NhSkV9MIaeE735FtWxhIIlYgw j j9btw2sliCh0YfN9BFWvnvGit OrnEZP0v4YpSu42Z88lDWaqHT WoJBRdNMOrGZHfcDarjh0pjP9 w Ii8+DJQrfGY9vCP3qI1xPnEcZ aV0MUleF399BwXqjDCyVxpbQ3 6wM4QpnAN+KJBcGot4MJWjzZc s RC7xcHNpLCwwRh0xMXC5IrMtX xMbKFoaY0KmLYRunsveldglpG F2KEAaFMXjuM21Ri6fiCifAXR w wOGAeJ4ebzkgh0yeybvlGdSyZ NYmACy4SKx8SZDskWczAdQqXN V1VsR4OVC8sJFhvK8fiZylows g oM1sW7FqJLPfkjhqMr91tZ9dB gOpAhZ1BEbaMve+F8wWM87PPA IYNMJNQK2NUGFBAEqDPseoiID + MJUuYKM2eCfwHLzvTDVfrZ3aB TSaZ1w7PoVbVbB6AHalU0RgWS MaeuefJu48qM7bNhVoMiZ6RJz u K7BqwkY2LKFguJMzIDodZAP2W 13uc0V1DDWcEOWsUIH6wCJ4rQ 1hbGlnbjogbGVmdDsgdmVydGl j TEmiJQzrO519KCYjkCheLtZkW cZ1JfZ3GKU0T2EwIjs9CEVxoA ujVN2gdYVxJXxgWz5wtYeohBw g WE2qAMKdgxvvXYUitN4vLFRbz XZlcGtuOZ8jDYNtsswfd115Jw FhKZQ7DPIxyFDsL1NmsL7wCxS j CWQtUMTxP5NamYMtSOzlU223B WlfXuP8VGGucaXkS4VmPXYqhA owMaC9i4E4Sz1qFrXFTPFkury v dGQ+AUPmXCW4iRjfSYnaPKZbj I3rQHKvG0o0MlZjWiF8EEyqU3 LqNZBqqtbaFw00aE9sWjOnKrI 1 KUhlP7JuswR8OYEteQZsAMbpH YX6E20mu3P9QWOaXBDhFYG5vS Y9iL6bpVvagmnloALzhTfpamQ y sVvsWDtiJTeyG564IEHdqEydW kZFTUFMRTwvdGQ+MJVuSBF1aI wdYCbtSHFqfT2uVPTnK2l5SyF w ZbM0FSmpV1IwWLFklnjhFj69x L5vXaUjDqM4PRldQ2GqepN7DV JmoNNbDDnmAEW8T47co6F4XCT w UQEkSRR7hYB8qZ8vlNzvdblfq GVmdDsgdmVydGljYWwtYWxpZ2 87SUEueYtsHf1CHG79RA66S5E y PjwvdGFibGU+PHRhYmxlIHdpZ FRsQCpvVWPpFtNdtKxoJC5aOa 4nALLuFLTfvSfeaQSuEiQoo1u s CZZrNHriIX8kqWjwT3BleGR0A XHco3j3Aw29E87mW7DgaDT+PG TzxCE0sBP6sN6nHhGiPlT7XQe p U893RyXoiYIxAwtlo8fyp7cty Nj0WvScRBNukgBunVteJNE8f0 QiYz31I22dKCrbIKFoTJZoOLD i QOUlhNdvic3irW9hJn2+PGNvb VY1aMV3dT1uIlJyIfP0ARnuR6 27FpDakUMoJlpcR18yH3PekJX + EGYoAbh6HDDefUokCI5daSVuI ApxLw6rRLH0IsCePeQkPNolS6 ScOBBskquvznpxpFV9YWDiGAH w rX54Yz4kdUlrMg9vBUCtWJA2T GRliGMuC6YauO4lMwOxCQNmDT UgS0OzzFFxFOtiX121BTfbMbF 7 GTEpgiDfA0NuYZAhmQnrVkI4o 8M7Hj2OsTcnsCFdDN1cKpNpOZ a7H8FrEka3NZIfgBuwPL4fdQO k AYtlXh8ekTgnaYpdXN4yRCSjk wfqw653UaFjq4rcVWYysXIbIF crBOW3J43iw2I4OITzLXKgWLY 7 fRQ8hM1rtIslkcdpnBQjsVxnp nSetJguZYciEOhfH113MJCquJ hjCxHBXxj0C7PbKiv7ZUBhfXj s AQ4aqDFiPEldUa0qmPlqrQiqA I6bAJDqiyevv173TdOid9sgRB XmlTAlPWwfXVV5N90fw0D9AKO w KJRrFEX3eHA4hO7clSbtnbfwq GVmdDsgdmVydGljYWwtYWxpZ2 93VHMwqEccGq0EQhq7U7UhUau 0 KKBanYpcHB0zfLNvDLjfCm8gg YcixAyuFC5qGAVjbcvln022Xn Blq7juIBBokNZtKZuvRKT5B65 s x9F9JQXeKEWfUFA5wKH9uI9ej GlnbjogbGVmdDsgdmVydGljYW mkAVnvM627IJKvzCzoApXwbPR y OjwvdGQ+XB77ra30U1TzWcmtA wd3WNUcSEL8tGL5tN2tVJTlGW hwm5U6tPT3X8EqtzGmoa9na8h s YXB (more content not included)... [facility] ED Clinical Summaryon 2022 ED Clinical Summary [facility] Emergency Department [address] [place] [address] ED Clinical Summary PERSON INFORMATION Name: BARBRA CLAROS Age: 27 Years Sex: FEMALE : 1995 MRN: Acct#: Visit Reason: Ear drainage; Ear pain; RT EAR PAIN/DRAINAGE Arrival: 01/11/2023 07:59:56 Discharge: 01/11/2023 09:01:00 LOS: 000 01:02 Check In: 01/11/2023 07:59:56 Checkout:01/11/2023 09:01:00 Address: [address] [place] [address] PCP: Provider, None PROVIDER INFORMATION Provider Role [...] 5 days With: Address: When: None Provider [address] [place] [address] Within 3 to 5 days DIAGNOSIS: 1:Right otitis externa Patient Understands: Yes - Patient/family/caregiver verbalizes understanding of instructions given Comment: [facility] ED Patient Education Noteon 01-11-2023 ED Patient Education Note Education Materials [facility] ED Patient Summaryon 023 ED Patient Summary [facility] Emergency Department [address] [place] [address] PATIENT DISCHARGE INSTRUCTIONS Patient Information Name: BARBRA CLAROS Age: 27 Years Date of : 1995 [facility]: [id number] Reason For Visit: Ear drainage; Ear pain; RT EAR PAIN/DRAINAGE Arrival Time: 01/11/2023 07:59:56 Primary Care Physician: Provider, None Attending Physician: Anjel Yates MD Comment: Visit Diagnosis: Diagnoses This Visit Ear drainage ([id number]) Ear pain ([id number]) Right otitis externa (H60.91) The Pharmacy at [facility] is open Monday through Monday from 9A [...] alcohol and/or drug addiction problems; contact the [facility] 09/01 Crisis Hotline -Luxu 3RFOJ kg [id number]. If you received any narcotics, sedation, or [...] 5 days With: Address: When: None Provider [address] [place] [address] Within 3 to 5 days Medication Information: The exam and treatment you received today in the [facility] Emergency Department were for an urgent problem and are not intended as complete care. It is important for you to follow up with a doctor, nurse practitioner, or physician?s certified surgical assistant for ongoing care. If your symptoms [...] so we can reach you if necessary. [facility] Emergency Department has provided you with a complete list of medications post discharge. 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 Any specific questions regarding your chronic medications and dosages should be discussed with your primary care physician(s) and/or pharmacist. New Medications [facility] [id number], [address], [place] [id number], [phone] colistin/HC/neomycin/thon zonium otic (Cortisporin-TC otic suspension) 5 [...] collected on (more content not included)... Normal [facility] [place] Teston 01-05-2023 Glucose [Mass/Vol] 87 mg/dL Normal <=139 [facility] Comment on above: Performed By: #### 2 [id number] ####[facility] (DEFAULT)[address] [place] [address] Provider Orderson 01-05-2023 Provider Orders [id number] [facility] Coding Summaryon 01-04-2023 Coding Summary HTMLBase 64 ZdhowygaZPq5yHd+PGhlYWQ+P X2LNLPoN82czJMyjI3lF8AMVO lOSywgQVBQTElOSyIgbmFtZT1 kaXNjZXJu IC8+PD9xPJDcOjecfNZfj7H6j SR5C52ddd5lBCkhdOY6AYLbFi Bytisqe8jelGa3AZdgKissAaN t VQFlgT69GWF1sH06Ru12pYDfa VByw4dnvOn9GoHzMPDbSTG0mW lyBFukr9UfNVJxV98maBRih5A 6 RQVmpXyzaAXyWvToxHE2qS0aJ Bibkkbju4zrorwzSqc8qk32qN Keh3V9gTD1Q3XoxxU1VSGjiVB g KgohkQQIbT6ddzaah9egqgpmE kWwPPAyKBc6IVk9YIUquPxoAk XzEB92IZR1JCRhloEjR1OwDZU s jYxvPsX4j3W6Ro6MC0BGJsrcZ 1VNTUFSWTwvdGQ+QQ15lu03D5 YxUgbtGlq3KFAtRMT4nJC9nW8 n OBKxBIeia0M1rLL5Y2ZhsdBea j4gp5lnRZBsJZkdC17qvWMfm0 G8DVEweVY2KKSplMjoGaBrzA9 3 Oyc+NRKtdCsck7XnJpvxc2hqf 9maaYe0StkbFPExygMvkUqcVL E1n5NvKq6fNZXlgOX3mJO1yY2 i XbWiDmZ2QEpaO386NrUjnNTwJ dywA43jX2IihSL+QFKjQny7DQ QqcJocOT1kE8TdWQKemstllCO m dQtsRA9sLXKwcscbFXTelR5nA MXsF0e4PvLgMmF1ZZluJ9OhEI BrdzpgTp97aN0vTwEaLlS3ZZo u I9BhjqD2CJQkiNTsCQkiZKW4W 30jm7J2MCSdDTQpSOU3sMK2sY 1hbGlnbjogbGVmdDsgdmVydGl j PReqEOrqJ775REVcgLusDtGrA GluZyBEYXRlOiAgMDcvMTkvMj AyMzwvdGQ+QIHqQZD2eMxgOYL n wXZuTOilCe7xiHposOeaUK7wN LDjltwiKESrbQ7sMTXahYSylD vtGX3qYRIesivlq885BaAeKHR 0 UCQujDLwU8XupU5rQbHwFLAdM IVkN0RefFOeTGqoF041IGazRw X2IHXuymBpX0IvOEKuoAwxDfQ 0 v1I9Ab3Rh5EdivvsD7XanETiY nEbJlrsXIm0N5FzGkqlwDT+PC 44IUNzJJ07FSi0FUK9zVccIVy i ZXBzK9SjxD5fJwRkXFZaBXTzB yc+PHRhYmxlIHdpZHRoPScxMD RjBqDqyNleAC4vCz3oKCXfGQO v fGfrkJLaClEbi8xdFEShEQwsC N8xyNfhR2OhnPG6FCMnf4i9Rf 35L39kY1EprIZ+JSGphVN5dED 0 gB4pMoHgVnN5WErwQ368AsCso YXaNizmv3ibl0hteAr4ZmY2PK UnicKeqWmfLCM8i9RzWz68K53 s IHdpZHRoPSIxNSUiIHZhbGlnb o0nwV4sTv9+IRShyNJ1dNA5cO 8sRaDaUzO9STabH522VsXnsEW v Wyiak2ixw8nkyOi9FmCrENBec bHdaIjuQNM6i1MhBw77M5FcjY lhs9EeRlm5du79aZRiw1N8wCV 9 N1UeXHTlilelkDAwzYdxOY5xI OYqpkgrADKnvW6uLSYzW5l4Ja PaTeZ5LVdaV4WbylZ0DEGqnHN g LDIuwBVHcN5dlqlss8yetwyzH kBbHATnKQr7FDk8ZLZohGdmYr PtTAS9MnL5DAR7hTEsyP9cbIp n tlwkbO7wKal+LGC2xOEavDIKU F2qDooenKQ+BMRcSNE1kKmzBD buMJOlkI9xGYClI7f0YfYvJbQ 1 VWjbY0MwckS6UQXtbDGcSMRsb MXVzA1mopcll8wekqmyGvGvWO QkDSr8YIq7GRRfiIqrNaXsGHY 0 NbC5JTB6uQWxvK1qqJsqpdxsb G9wOyc+AuonrMvvLLY5MAk4I8 QwYau6MQMqbHyqRU7qhZUvOFt u Cy3qtSvxpSjwWZ5jQRAmmhzyn 503YmLxs3kzICOlsFBbHSjlLB W1O36sh3K9UVChFZTnYQS2oBP 4 iQ7rrMlaqbefqOAhoAsaesSue UrkODgzCCjrI198BCJxeZscIx VdGGq0I9ZdFzh9IHMvoNgtQN3 n bAQcMRqwKr2pyPufzHblYD5jL PCvcqequ529DhGpt1bgGAWbeZ AaYCqwCMO0O67ly1X3SMVmFAJ w CAM5vKQ7hC8amJrkomvkrFUam QyobcLflJkfOQpbTYliH201QR XhcBqnHeNznXa5E9ZdQxg2QAL z bZfyRU7nzDYfGUlvPi0sgDiab SgjPN7tAKXpyiozx028MeRqe5 prZTQseXDuHNayWBS3V32ds9R 6 PQDnVTSuUEH7tWH1fD9igHkrc jogbGVmdDsgdmVydGljYWwtYW zlE604UUUtiLkoYkMffEroqxP g GMqaKYe4I3NqMvsxoHI+PC90Y IKbMR47eBJboUAet2kwuGv6Nx KsDWOqVQV8hYzvNRhox7XpPRB t Z31lbCOyl2E8GAYiwFenaXZuR qVmeTF5pR3vBKjvqfcka3eaer rpMnbzd0awic61dH15P02lNZv p RFUeASAnRVJwONZaxXtkic3it G9wIi8+LIAfvXI9bYM0gO0qVG QmIpD0DVqvO754CjUjaCEbJdg j q3nya0grwLd9KaD4SFGiqjWnf KwiTPG9k0TaNq59X76hYRcoJI QoKEXvBBDfEMXfuMlgsa8dvY6 w Ii8+XDGhaSR6mWP6oG5xHfHjF sO4SDxyG741MrLsuSPjBqnhT0 1zT2UkvUF+PPZjVvk5GTZhuRh s JS2kqYUkJGxmBq6xBGQ0MyNiN gFbCFbaH7EvDSHvvckyoncziI V7TCTeKYHqoU72Ae6opYokNZY w kXGNvY1inrlck5gvpdznKwShB MNgWSt4JEs3PDDwsCzfKdBsKO K8NsS4UYD0nDMuqX8okAcvejm g tB2sV4UaZNYawdezHw96hV5xA gFhFdB2HXrtAsh+N2dZX88XRF FXNAQNLY8NQZXDYAkSHojkfUV + MGWzMOR7gVzvMRxcIZTzuW5yQ YReP9s0NiMvAbU2CAjaE0ErLC GhouunZm67hT5dWyHyLcM2GYv u J1QrgaE7GVQfiKSyBQxwHKJ9L 48sp5N9VJBeEHLsUIT3nSJ6lT 1hbGlnbjogbGVmdDsgdmVydGl j YWioIRjzY033HGKvdXkiOdMaB pI8WzC4AEN3L5YrZwr1MBSfdA tbVX8uhSRmIEwtMq2paTxrhXg g CU8fCXFputrnKZOeyZ2aFJUfw CYksFluSL6bCNGxjahtz990Ad HlAUU2KCAuoTJeS8IidZ5fPdX j RMEbPPZlM6ZncEVgWVhnF428K MmnDhV4TOYgfpMgL4WwVHYliW kjPmN5e7P5Bl8qKiEMXLBsxos v dGQ+INQtCWK6nJclWUbjSIWxi D1oZXIqI1d6OcEvNdK0XRovX5 UtOQGewpnjFj21xS9qUyBcGmC 1 RYnmI2VplaN2OBGssAOoIVltJ ZO1J97fr5H1JXDhCCBaZHI3uJ D0zS4wmKjytllwxSBerZvfqoQ y hVkrUZfjLXjgD343SKEfuVgwE kZFTUFMRTwvdGQ+SLXvOJT6hD anGEsmOMIopC7oPGYzL7o8QaO w YmY5VRvbD5TxFTXzypsyRn53s U4tAePgIyU8VBaoE7EopvD3OL WwnGRsYPtdLGO3H59eq2G4BXG w UUFpEPX7sWZ0pB2xvTkaaeybb GVmdDsgdmVydGljYWwtYWxpZ2 57ZVUykTxtGy8GTR89ZZ85F7R y PjwvdGFibGU+PHRhYmxlIHdpZ FRcVPsrDKYqQvHhlDcqTH1jAe 0uCHPtPYRxuTbwnKKoZrAym8c s RMAnRZodJO4uhVmxP9JnsLC7P GYql0x4Lq15N69iH0NegFC+PG RweJY6nMD8sL6dJyJwShE9PQc p H355JpZbeLWaOsckn0oxp7qcb Oo0BmOoIETgoxPtoJteEFN2f8 BqTx01J77kWOarLOEsPELpFQH i YDClbDonpz4teQ2sFk7+PGNvb UH2aZC9pT9kZqToOkJ0KGdaS3 26IzAjeSEqStfkA76tR2AnwXZ + CTBoEeb6KHKktVqpIW1omOGcG AjrAi0fNBI3YsOcBsLbKVmnT7 WbEUBosxnylkxvpLF0LOTbRIU w kT83Kd6phIwyIx4wEUGkFGZ8A KWabCXhR6NfpU7bDdTuLNPvTA SeQ5JdyIYxGQnnL335AVqjKrV 7 QWGlwuLiQ6EoEATyaNlyFwP8g 6G5Fr6PmYudxSIaLF1iGhRiCP h0O0ObYaj6KXWihDnrHS6ohOQ k TKaiBp3nfBxncFrrWA6nEVXmk gszj659EoCkq7ocXAStiPBgFI wjHDM6K82ti4H1LQBaPDDcQNU 7 hGD9lY8epImtikdhnEWyuSqgr cJwaYxiDSxbPKupE437YVIugZ qlHnRDQsi3N0SpKke3QPNfmVn s UF7ggSHxBDryWg5bjNzpfEalW E6aLWXsgqvsv014LlScn5jyQR FebDLpIIukRMR3G10rm8P5VVX w SKFuBUU3oHS3wE7hiVehywyvg GVmdDsgdmVydGljYWwtYWxpZ2 15QELqgAcfSe7GLjo6Q4JpAwk 0 DZGynFtnNG2kbJUlCGzpDf4ha McuyFjzNW9dRCDdughje446Px Jjj5gxZFJbiQFlUQsoJGO0W74 s t6E0VWCiJWDwANG5tCJ4wF6hr GlnbjogbGVmdDsgdmVydGljYW yoBGrfL885IMCupFlaYcOniNR y OjwvdGQ+PZ12wt34X2ErBvypM dh8SNAnNNP5hJO8pP2gPMNbAA ash1H1kFF1N7ZeqwStua7re8j s YXB (more content not included)... Normal [facility] Amphetamine Screen Ql (U)Ord ered By: Jonathan Monahan on 12-08-2022 Amphetamines Ql (U) Negative Negative [facility] Barbiturates [Presence] in U rine by Screen methodOrdered By: Jonathan Monahan on 12-08-2022 Barbiturates Screen Ql (U) Negative Negative [facility] Benzodiazepines Screen Ql (U )Ordered By: Jonathan Monahan on 12-08-2022 Benzodiazepines Ql (U) Negative Negative [facility] Benzoylecgonine [Presence] i n Urine by Screen methodOrdered By: Jonathan Monahan on 12-08-2022 Benzoylecgonine Screen Ql (U) Negative Negative [facility] Bilirubin Auto test strip Ql (U)Ordered By: Jonathan Monahan on 12-08-2022 Bilirubin Ql (U) Negative Negative [facility] fibronectinOrdered By: Jonathan Monahan on 12-08-2022 Fibronectin. (Vag fld) [Mass/Vol] Negative Negative [facility] Ketones Auto test strip (U) [Mass/Vol]Ordered By: Jonathan Monahan on 12-08-2022 Ketones (U) [Mass/Vol] Negative Negative [facility] No Panel InformationOrdered By: Jonathan Monahan on 12-08-2022 Membranes Rupture (PAMG-1) Negative Negative [facility] Opiates [Presence] in Urine by Screen methodOrdered By: Jonathan Monahan on 12-08-2022 Opiates Screen Ql (U) Negative Negative [facility] Phencyclidine Screen Ql (U)O rdered By: Jonathan Monahan on 12-08-2022 Phencyclidine Ql (U) Negative Negative [facility] Comment on above: These are unconfirme d results and should not be used for legal purposes. Drug Cut-Off Concentration: AMPH 1000 ng/mL FIONA 200 ng/mL KIMMY 200 ng/mL COCM 300 ng/mL OP 300 ng/mL PCP 25 ng/mL Protein Auto test strip (U) [Mass/Vol]Ordered By: Jonathan Monahan on 12-08-2022 Protein (U) [Mass/Vol] Negative Negative [facility] Urine appearanceOrdered By: Jonathan Monahan on 12-08-2022 Appearance (U) Clear Clear [facility] Urine colorOrdered By: Michaelle Monahan on 12-08-2022 Color (U) Yellow Yellow [facility] Urine glucose measurement by automated test strip (mass/volume)Ordered By: Jonathan Monahan on 12-08-2022 Glucose Auto test strip (U) [Mass/Vol] Normal mg/dL Normal [facility] Urine hemoglobin detection b y automated test stripOrdered By: Jonathan Monahan on 12-08-2022 Hemoglobin Auto test strip Ql (U) Negative Negative [facility] Urine leukocyte esterase det ection by automated test stripOrdered By: Jonathan Monahan on 12-08-2022 Leukocyte esterase Auto test strip Ql (U) Negative Negative [facility] Urine nitrite detection by a utomated test stripOrdered By: Jonathan Monahan on 12-08-2022 Nitrite Auto test strip Ql (U) Negative Negative [facility] Urobilinogen Auto test strip (U) [Mass/Vol]Ordered By: Jonathan Monahan on 12-08-2022 Urobilinogen (U) [Mass/Vol] Normal mg/dL Normal [facility] pH Auto test strip (U)Ordere d By: Jonathan Monahan on 12-08-2022 pH (U) 1.005 [pH] 1.001-1.030 [facility] pH (U) 7.0 [pH] 5.0-9.0 [facility] Amphetamine Screen Ql (U)Ord ered By: Jonathan Monahan on 11-20-2022 Amphetamines Ql (U) Negative Negative [facility] Automated erythrocytes count in urine sediment (number/area)Ordered By: Jonathan Monahan on 11-20-2022 RBC Auto (Urine sed) [#/Area] 1-2 [HPF] 0-4 [facility] Automated leukocytes count i n urine sediment (number/area)Ordered By: Jonathan Monahan on 11-20-2022 WBC Auto (Urine sed) [#/Area] 1-2 [HPF] 0-4 [facility] Barbiturates [Presence] in U rine by Screen methodOrdered By: Jonathan Monahan on 11-20-2022 Barbiturates Screen Ql (U) Negative Negative [facility] Benzodiazepines Screen Ql (U )Ordered By: Jonathan Monahan on 11-20-2022 Benzodiazepines Ql (U) Negative Negative [facility] Benzoylecgonine [Presence] i n Urine by Screen methodOrdered By: Jonathan Monahan on 11-20-2022 Benzoylecgonine Screen Ql (U) Negative Negative [facility] Bilirubin Test strip Ql (U)O rdered By: Jonathan Monahan on 11-20-2022 Bilirubin Ql (U) Negative Negative [facility] Color Auto (U)Ordered By: Hola Monahan on 11-20-2022 Color (U) Yellow Yellow [facility] fibronectinOrdered By: Jonathan Monahan on 11-20-2022 Fibronectin. (Vag fld) [Mass/Vol] Negative Negative [facility] Ketones Auto test strip (U) [Mass/Vol]Ordered By: Jonathan Monahan on 11-20-2022 Ketones (U) [Mass/Vol] Trace Negative [facility] Laboratory - UrinalysisOrder ed By: Jonathan Monahan on 11-20-2022 Hyaline casts LM Ql (Urine sed) 0-8 [LPF] 0-8 [facility] Nitrite Test strip Ql (U)Ord ered By: Jonathan Monahan on 11-20-2022 Nitrite Ql (U) Negative Negative [facility] No Panel InformationOrdered By: Jonathan Monahan on 11-20-2022 Membranes Rupture (PAMG-1) Negative Negative [facility] Opiates [Presence] in Urine by Screen methodOrdered By: Jonathan Monahan on 11-20-2022 Opiates Screen Ql (U) Negative Negative [facility] Phencyclidine Screen Ql (U)O rdered By: Jonathan Monahan on 11-20-2022 Phencyclidine Ql (U) Negative Negative [facility] Comment on above: These are unconfirme d results and should not be used for legal purposes. Drug Cut-Off Concentration: AMPH 1000 ng/mL FIONA 200 ng/mL KIMMY 200 ng/mL COCM 300 ng/mL OP 300 ng/mL PCP 25 ng/mL Protein Auto test strip (U) [Mass/Vol]Ordered By: Jonathan Monahan on 11-20-2022 Protein (U) [Mass/Vol] Trace mg/dL Negative [facility] Specific gravity Auto test s trip (U) [Rel density]Ordered By: Jonathan Monahan on 11-20-2022 Specific gravity (U) [Rel density] 1.016 1.001-1.030 [facility] Squamous epithelial cells de tection in urine sediment by light microscopyOrdered By: Jonathan Monahan on 11-20-2022 Epithelial cells.squamous LM Ql (Urine sed) 1-2 [HPF] 0-2 [facility] Urine bacteria detection by automated methodOrdered By: Jonathan Monahan on 11-20-2022 Bacteria Auto Ql (U) None seen None Seen [facility] Urine clarity by refractomet ry automatedOrdered By: Jonathan Monahan on 11-20-2022 Clarity Refractometry automated (U) Clear Clear [facility] Urine glucose measurement by automated test strip (mass/volume)Ordered By: Jonathan Monahan on 11-20-2022 Glucose Auto test strip (U) [Mass/Vol] Normal mg/dL Normal [facility] Urine hemoglobin detection b y automated test stripOrdered By: Jonathan Monahan on 11-20-2022 Hemoglobin Auto test strip Ql (U) Negative Negative [facility] Urine leukocyte esterase det ection by automated test stripOrdered By: Jonathan Monahan on 11-20-2022 Leukocyte esterase Auto test strip Ql (U) Negative Negative [facility] Urobilinogen Auto test strip (U) [Mass/Vol]Ordered By: Jonathan Monahan on 11-20-2022 Urobilinogen (U) [Mass/Vol] Normal mg/dL Normal [facility] pH Auto test strip (U)Ordere d By: Jonathan Monahan on 11-20-2022 pH (U) 5.5 [pH] 5.0-9.0 [facility] Amphetamine Screen Ql (U)Ord ered By: JUANY CHOI on 11-03-2022 Amphetamines Ql (U) Negative Negative [facility] Barbiturates [Presence] in U rine by Screen methodOrdered By: JUANY CHOI on 11-03-2022 Barbiturates Screen Ql (U) Negative Negative [facility] Benzodiazepines Screen Ql (U )Ordered By: JUANY CHOI on 11-03-2022 Benzodiazepines Ql (U) Negative Negative [facility] Benzoylecgonine [Presence] i n Urine by Screen methodOrdered By: JUANY CHOI on 11-03-2022 Benzoylecgonine Screen Ql (U) Negative Negative [facility] Bilirubin Test strip Ql (U)O rdered By: JUANY CHOI on 11-03-2022 Bilirubin Ql (U) Negative Negative [facility] Color Auto (U)Ordered By: LEIDA CHOI on 11-03-2022 Color (U) Yellow Yellow [facility] Ketones Auto test strip (U) [Mass/Vol]Ordered By: JUANY CHOI on 11-03-2022 Ketones (U) [Mass/Vol] Negative Negative [facility] Nitrite Test strip Ql (U)Ord ered By: JUANY CHOI on 11-03-2022 Nitrite Ql (U) Negative Negative [facility] No Panel InformationOrdered By: JUANY CHOI on 11-03-2022 Membranes Rupture (PAMG-1) Negative Negative [facility] Opiates [Presence] in Urine by Screen methodOrdered By: JUANY CHOI on 11-03-2022 Opiates Screen Ql (U) Negative Negative [facility] Phencyclidine Screen Ql (U)O rdered By: JUANY CHOI on 11-03-2022 Phencyclidine Ql (U) Negative Negative [facility] Comment on above: These are unconfirme d results and should not be used for legal purposes. Drug Cut-Off Concentration: AMPH 1000 ng/mL FIONA 200 ng/mL KIMMY 200 ng/mL COCM 300 ng/mL OP 300 ng/mL PCP 25 ng/mL Protein Auto test strip (U) [Mass/Vol]Ordered By: JUANY CHOI on 11-03-2022 Protein (U) [Mass/Vol] Negative Negative [facility] Specific gravity Auto test s trip (U) [Rel density]Ordered By: JUANY CHOI on 11-03-2022 Specific gravity (U) [Rel density] 1.013 1.001-1.030 [facility] Urine clarity by refractomet ry automatedOrdered By: JUANY CHOI on 11-03-2022 Clarity Refractometry automated (U) Clear Clear [facility] Urine glucose measurement by automated test strip (mass/volume)Ordered By: JUANY CHOI on 11-03-2022 Glucose Auto test strip (U) [Mass/Vol] Normal mg/dL Normal [facility] Urine hemoglobin detection b y automated test stripOrdered By: JUANY CHOI on 11-03-2022 Hemoglobin Auto test strip Ql (U) Negative Negative [facility] Urine leukocyte esterase det ection by automated test stripOrdered By: JUANY CHOI on 11-03-2022 Leukocyte esterase Auto test strip Ql (U) Negative Negative [facility] Urobilinogen Auto test strip (U) [Mass/Vol]Ordered By: JUANY CHOI on 11-03-2022 Urobilinogen (U) [Mass/Vol] Normal mg/dL Normal [facility] pH Auto test strip (U)Ordere d By: JUANY HERRERAUZIEL on 11-03-2022 pH (U) 7.0 [pH] 5.0-9.0 [facility] Vital Signs Date Time Vital Sign Value Performing Clinician Facility 03-20-2025 08:00-0400 Body temperature 98 [degF] PHYSICIAN NO [facility] 03-20-2025 08:00-0400 Diastolic blood pressure 67 mm[Hg] PHYSICIAN NO [facility] 03-20-2025 08:00-0400 Heart rate 80 /min PHYSICIAN NO [facility] 03-20-2025 08:00-0400 Respiratory rate 16 /min PHYSICIAN NO [facility] 03-20-2025 08:00-0400 SaO2% (BldA) [Mass fraction] 98 % PHYSICIAN NO [facility] 03-20-2025 08:00-0400 Systolic blood pressure 102 mm[Hg] PHYSICIAN NO [facility] 03-19-2025 22:34-0400 Body height 162.56 cm PHYSICIAN NO [facility] 03-19-2025 22:34-0400 Body weight 83.91 kg PHYSICIAN NO [facility] 02-24-2025 10:11-0400 Body height 162.56 cm PHYSICIAN NO [facility] 02-24-2025 10:11-0400 Body mass index (BMI) [Ratio] 31.4 kg/m2 PHYSICIAN NO [facility] 02-24-2025 10:11-0400 Body temperature 98.8 [degF] PHYSICIAN NO [facility] 02-24-2025 10:11-0400 Body weight 83.09 kg PHYSICIAN NO [facility] 02-24-2025 10:11-0400 Diastolic blood pressure 80 mm[Hg] PHYSICIAN NO [facility] 02-24-2025 10:11-0400 Heart rate 85 /min PHYSICIAN NO [facility] 02-24-2025 10:11-0400 Respiratory rate 18 /min PHYSICIAN NO [facility] 02-24-2025 10:11-0400 SaO2% (BldA) [Mass fraction] 95 % PHYSICIAN NO [facility] 02-24-2025 10:11-0400 Systolic blood pressure 106 mm[Hg] PHYSICIAN NO [facility] 02-08-2025 14:22-0400 Body height 160.02 cm PHYSICIAN NO [facility] 02-08-2025 14:22-0400 Body mass index (BMI) [Ratio] 47.5 kg/m2 PHYSICIAN NO [facility] 02-08-2025 14:22-0400 Body temperature 98.1 [degF] PHYSICIAN NO [facility] 02-08-2025 14:22-0400 Body weight 121.56 kg PHYSICIAN NO [facility] 02-08-2025 14:22-0400 Diastolic blood pressure 70 mm[Hg] PHYSICIAN NO [facility] 02-08-2025 14:22-0400 Heart rate 90 /min PHYSICIAN NO [facility] 02-08-2025 14:22-0400 Respiratory rate 18 /min PHYSICIAN NO [facility] 02-08-2025 14:22-0400 SaO2% (BldA) [Mass fraction] 97 % PHYSICIAN NO [facility] 02-08-2025 14:22-0400 Systolic blood pressure 102 mm[Hg] PHYSICIAN NO [facility] 01-24-2025 07:30-0400 Body temperature 97.9 [degF] PHYSICIAN NO [facility] 01-24-2025 07:30-0400 Diastolic blood pressure 74 mm[Hg] PHYSICIAN NO [facility] 01-24-2025 07:30-0400 Heart rate 79 /min PHYSICIAN NO [facility] 01-24-2025 07:30-0400 Respiratory rate 18 /min PHYSICIAN NO [facility] 01-24-2025 07:30-0400 SaO2% (BldA) [Mass fraction] 98 % PHYSICIAN NO [facility] 01-24-2025 07:30-0400 Systolic blood pressure 118 mm[Hg] PHYSICIAN NO [facility] 01-23-2025 12:03-0400 Body height 160.02 cm PHYSICIAN NO [facility] 01-22-2025 17:32-0400 Body weight 82.55 kg PHYSICIAN NO [facility] 01-22-2025 12:18-0400 Body height 160.02 cm PHYSICIAN NO [facility] 01-22-2025 12:18-0400 Body temperature 98.7 [degF] PHYSICIAN NO [facility] 01-22-2025 12:18-0400 Body weight 83 kg PHYSICIAN NO [facility] 01-22-2025 12:18-0400 Diastolic blood pressure 70 mm[Hg] PHYSICIAN NO [facility] 01-22-2025 12:18-0400 Heart rate 82 /min PHYSICIAN NO [facility] 01-22-2025 12:18-0400 Respiratory rate 18 /min PHYSICIAN NO [facility] 01-22-2025 12:18-0400 SaO2% (BldA) [Mass fraction] 99 % PHYSICIAN NO [facility] 01-22-2025 12:18-0400 Systolic blood pressure 108 mm[Hg] PHYSICIAN NO [facility] 01-01-2025 07:30-0400 Body temperature 97.8 [degF] PHYSICIAN NO [facility] 01-01-2025 07:30-0400 Diastolic blood pressure 58 mm[Hg] PHYSICIAN NO [facility] 01-01-2025 07:30-0400 Heart rate 79 /min PHYSICIAN NO [facility] 01-01-2025 07:30-0400 Respiratory rate 16 /min PHYSICIAN NO [facility] 01-01-2025 07:30-0400 SaO2% (BldA) [Mass fraction] 98 % PHYSICIAN NO [facility] 01-01-2025 07:30-0400 Systolic blood pressure 100 mm[Hg] PHYSICIAN NO [facility] 12-31-2024 14:38-0400 Body height 160.02 cm PHYSICIAN NO [facility] 12-30-2024 08:14-0400 Body weight 77.38 kg PHYSICIAN NO [facility] 12-29-2024 20:51-0400 Body height 160.02 cm PHYSICIAN NO [facility] 12-29-2024 20:51-0400 Body temperature 98.4 [degF] PHYSICIAN NO [facility] 12-29-2024 20:51-0400 Body weight 77.2 kg PHYSICIAN NO [facility] 12-29-2024 20:51-0400 Diastolic blood pressure 61 mm[Hg] PHYSICIAN NO [facility] 12-29-2024 20:51-0400 Heart rate 97 /min PHYSICIAN NO [facility] 12-29-2024 20:51-0400 Respiratory rate 16 /min PHYSICIAN NO [facility] 12-29-2024 20:51-0400 SaO2% (BldA) [Mass fraction] 96 % PHYSICIAN NO [facility] 12-29-2024 20:51-0400 Systolic blood pressure 99 mm[Hg] PHYSICIAN NO [facility] 12-06-2024 07:30-0400 Body temperature 97.9 [degF] PHYSICIAN NO [facility] 12-06-2024 07:30-0400 Diastolic blood pressure 64 mm[Hg] PHYSICIAN NO [facility] 12-06-2024 07:30-0400 Heart rate 82 /min PHYSICIAN NO [facility] 12-06-2024 07:30-0400 Respiratory rate 16 /min PHYSICIAN NO [facility] 12-06-2024 07:30-0400 SaO2% (BldA) [Mass fraction] 100 % PHYSICIAN NO [facility] 12-06-2024 07:30-0400 Systolic blood pressure 119 mm[Hg] PHYSICIAN NO [facility] 12-04-2024 13:39-0400 Body height 160.02 cm PHYSICIAN NO [facility] 12-03-2024 23:01-0400 Body weight 69.58 kg PHYSICIAN NO [facility] 11-16-2024 07:30-0400 Body temperature 97.7 [degF] PHYSICIAN NO [facility] 11-16-2024 07:30-0400 Diastolic blood pressure 87 mm[Hg] PHYSICIAN NO [facility] 11-16-2024 07:30-0400 Heart rate 102 /min PHYSICIAN NO [facility] 11-16-2024 07:30-0400 Respiratory rate 15 /min PHYSICIAN NO [facility] 11-16-2024 07:30-0400 SaO2% (BldA) [Mass fraction] 99 % PHYSICIAN NO [facility] 11-16-2024 07:30-0400 Systolic blood pressure 122 mm[Hg] PHYSICIAN NO [facility] 11-15-2024 14:56-0400 Body height 160.02 cm PHYSICIAN NO [facility] 11-15-2024 00:35-0400 Body weight 68.1 kg PHYSICIAN NO [facility] 11-14-2024 23:16-0400 Diastolic blood pressure 70 mm[Hg] PHYSICIAN NO [facility] 11-14-2024 23:16-0400 Heart rate 68 /min PHYSICIAN NO [facility] 11-14-2024 23:16-0400 Respiratory rate 21 /min PHYSICIAN NO [facility] 11-14-2024 23:16-0400 SaO2% (BldA) [Mass fraction] 97 % PHYSICIAN NO [facility] 11-14-2024 23:16-0400 Systolic blood pressure 109 mm[Hg] PHYSICIAN NO [facility] 11-14-2024 21:38-0400 Body height 160.02 cm PHYSICIAN NO [facility] 11-14-2024 21:38-0400 Body temperature 98.5 [degF] PHYSICIAN NO [facility] 11-14-2024 21:38-0400 Body weight 68.1 kg PHYSICIAN NO [facility] 11-10-2024 07:30-0400 Body temperature 97.5 [degF] PHYSICIAN NO [facility] 11-10-2024 07:30-0400 Diastolic blood pressure 85 mm[Hg] PHYSICIAN NO [facility] 11-10-2024 07:30-0400 Heart rate 93 /min PHYSICIAN NO [facility] 11-10-2024 07:30-0400 Respiratory rate 16 /min PHYSICIAN NO [facility] 11-10-2024 07:30-0400 SaO2% (BldA) [Mass fraction] 99 % PHYSICIAN NO [facility] 11-10-2024 07:30-0400 Systolic blood pressure 127 mm[Hg] PHYSICIAN NO [facility] 11-07-2024 14:44-0400 Body height 160.02 cm PHYSICIAN NO [facility] 11-07-2024 03:45-0400 Body weight 65.7 kg PHYSICIAN NO [facility] 11-07-2024 01:45-0400 Body temperature 98.6 [degF] PHYSICIAN NO [facility] 11-07-2024 01:45-0400 Diastolic blood pressure 57 mm[Hg] PHYSICIAN NO [facility] 11-07-2024 01:45-0400 Heart rate 64 /min PHYSICIAN NO [facility] 11-07-2024 01:45-0400 Respiratory rate 17 /min PHYSICIAN NO [facility] 11-07-2024 01:45-0400 SaO2% (BldA) [Mass fraction] 98 % PHYSICIAN NO [facility] 11-07-2024 01:45-0400 Systolic blood pressure 101 mm[Hg] PHYSICIAN NO [facility] 11-06-2024 21:23-0400 Body height 160.02 cm PHYSICIAN NO [facility] 11-06-2024 21:23-0400 Body weight 65.7 kg PHYSICIAN NO [facility] 11-06-2024 15:52-0400 Body mass index (BMI) [Ratio] 23.76 kg/m2 Michael Gurrola MD Work Phone: [facility] 11-06-2024 15:52-0400 Body weight 65.77 kg Michael Gurrola MD Work Phone: [facility] 11-06-2024 15:52-0400 Diastolic blood pressure 64 mm[Hg] Michael Gurrola MD Work Phone: [facility] 11-06-2024 15:52-0400 Systolic blood pressure 110 mm[Hg] Michael Gurrola MD Work Phone: [facility] 09-11-2024 13:23-0400 Body mass index (BMI) [Ratio] 24.75 kg/m2 Michael Gurrola MD Work Phone: [facility] 09-11-2024 13:23-0400 Body weight 68.49 kg Michael Gurrola MD Work Phone: [facility] 09-11-2024 13:23-0400 Diastolic blood pressure 78 mm[Hg] Michael Gurrola MD Work Phone: [facility] 09-11-2024 13:23-0400 Systolic blood pressure 124 mm[Hg] Michael Gurrola MD Work Phone: [facility] 07-22-2024 12:36-0500 Body height 160.02 cm [facility] 07-22-2024 12:36-0500 Body mass index (BMI) [Ratio] 19.5 kg/m2 [facility] 07-22-2024 12:36-0500 Body temperature 97.9 [degF] [facility] 07-22-2024 12:36-0500 Body weight 50.12 kg [facility] 07-22-2024 12:36-0500 Diastolic blood pressure 71 mm[Hg] [facility] 07-22-2024 12:36-0500 Heart rate 76 /min [facility] 07-22-2024 12:36-0500 Respiratory rate 17 /min [facility] 07-22-2024 12:36-0500 SaO2% (BldA) [Mass fraction] 97 % [facility] 07-22-2024 12:36-0500 Systolic blood pressure 121 mm[Hg] [facility] 07-10-2024 14:08-0500 Body mass index (BMI) [Ratio] 25.56 kg/m2 Michael Gurrola MD Work Phone: [facility] 07-10-2024 14:08-0500 Body weight 70.76 kg Michael Gurroal MD Work Phone: [facility] 07-10-2024 14:08-0500 Diastolic blood pressure 78 mm[Hg] Michael Gurrola MD Work Phone: [facility] 07-10-2024 14:08-0500 Systolic blood pressure 118 mm[Hg] Michael Gurrola MD Work Phone: [facility] 04-16-2024 07:32-0400 Body temperature 97.39 [degF] Cristiano Singh MD Work Phone: [facility] 04-16-2024 07:32-0400 Diastolic blood pressure 63 mm[Hg] Cristiano Singh MD Work Phone: [facility] 04-16-2024 07:32-0400 Heart rate 67 /min Crist[facility] Singh [facility] 04-16-2024 07:32-0400 Respiratory rate 16 /min Cristiano Singh MD Work Phone: [facility] 04-16-2024 07:32-0400 SaO2% (BldA) [Mass fraction] 100 % Cristiano Singh [facility] 04-16-2024 07:32-0400 Systolic blood pressure 111 mm[Hg] Cristiano Singh MD [facility] 04-16-2024 03:28-0400 Body mass index (BMI) [Ratio] 28.27 kg/m2 Cristiano Singh MD [facility] 04-16-2024 03:28-0400 Body weight 72.4 kg Cristiano Singh MD Work Phone: [employer] 04-11-2024 06:20-0400 Body height 160 cm Cristiano Singh MD Work Phone: [facility] [employer] 04-09-2024 10:44-0400 Diastolic blood pressure 66 mm[Hg] Tyrone Benito DO Work Phone: [facility] [employer] 04-09-2024 10:44-0400 Systolic blood pressure 107 mm[Hg] Tyrone Benito DO Work Phone: [facility] [employer] [facility] 04-09-2024 10:42-0400 Body mass index (BMI) [Ratio] 27.1 kg/m2 Tyrone Benito DO Work Phone: [facility] [employer] [facility] 04-09-2024 10:42-0400 Body temperature 98.01 [degF] Tyrone Mondragonis DO Work Phone: [facility] [employer] 04-09-2024 10:42-0400 Body weight 69.4 kg Tyrone Mondragonis DO Work Phone: [facility] [employer] [facility] 04-09-2024 10:42-0400 Heart rate 92 /min Tyrone Benito DO Work Phone: [facility] 04-09-2024 10:42-0400 Respiratory rate 16 /min Tyrone Mondragonis DO Work Phone: [facility] 04-09-2024 10:42-0400 SaO2% (BldA) [Mass fraction] 100 % Tyrone Benito DO Work Phone: [facility] 04-02-2024 14:15-0400 Diastolic blood pressure 49 mm[Hg] Tyrone Benito DO Work Phone: [facility] 04-02-2024 14:15-0400 SaO2% (BldA) [Mass fraction] 99 % Tyrone Mondragonis DO Work Phone: [facility] [employer] [facility] 04-02-2024 14:15-0400 Systolic blood pressure 101 mm[Hg] Tyrone Thong DO Work Phone: [facility] [employer] [facility] 04-02-2024 13:30-0400 Heart rate 51 /min Tyrone Benito DO Work Phone: [facility] 04-02-2024 13:30-0400 Respiratory rate 16 /min Tyrone Benito DO Work Phone: [facility] 04-02-2024 09:13-0400 Body mass index (BMI) [Ratio] 27.28 kg/m2 Tyrone Benito DO Work Phone: [facility] [employer] 04-02-2024 09:13-0400 Body temperature 97.9 [degF] Tyrone Benito DO Work Phone: [facility] 04-02-2024 09:13-0400 Body weight 69.85 kg Tyrone Benito DO Work Phone: [facility] [employer] [facility] 03-17-2024 12:14-0400 Diastolic blood pressure 84 mm[Hg] Prudence Wong MD Work Phone: [employer] 03-17-2024 12:14-0400 SaO2% (BldA) [Mass fraction] 100 % Prudence Wong MD Work Phone: [employer] 03-17-2024 12:14-0400 Systolic blood pressure 125 mm[Hg] Prudence Wong MD Work Phone: [facility] [employer] 03-17-2024 10:10-0400 Body temperature 98.1 [degF] Prudence Wong MD Work Phone: [facility] [employer] 03-17-2024 10:10-0400 Heart rate 102 /min Prudence Wong MD Work Phone: [employer] 03-17-2024 10:10-0400 Respiratory rate 16 /min Prudence Wong MD Work Phone: [facility] [employer] 02-15-2024 14:26-0400 Body height 160 cm [facility] 02-15-2024 14:26-0400 Body mass index (BMI) [Ratio] 28.54 kg/m2 [facility] 02-15-2024 14:26-0400 Body weight 73.07 kg [facility] 02-15-2024 14:26-0400 Diastolic blood pressure 70 mm[Hg] [facility] 02-15-2024 14:26-0400 Systolic blood pressure 128 mm[Hg] [facility] 02-07-2024 15:50-0400 Diastolic blood pressure 76 mm[Hg] Melida Huang APRN - DECK ENGINEER Work Phone: [facility] [employer] 02-07-2024 15:50-0400 Heart rate 64 /min Melida Huang APRN - DECK ENGINEER Work Phone: [facility] [employer] 02-07-2024 15:50-0400 SaO2% (BldA) [Mass fraction] 98 % Melida Huang APRN - DECK ENGINEER Work Phone: [facility] [employer] 02-07-2024 15:50-0400 Systolic blood pressure 126 mm[Hg] Melida Huang APRN - DECK ENGINEER Work Phone: [facility] [employer] 02-07-2024 10:55-0400 Body height 160 cm Melida Hunag APRN - DECK ENGINEER Work Phone: [facility] [employer] 02-07-2024 10:55-0400 Body mass index (BMI) [Ratio] 28.34 kg/m2 Melida Huang APRN - DECK ENGINEER Work Phone: [facility] [employer] 02-07-2024 10:55-0400 Body temperature 98.71 [degF] Melida Huang APRN - DECK ENGINEER Work Phone: [facility] [employer] 02-07-2024 10:55-0400 Body weight 72.58 kg Melida Huang APRN - DECK ENGINEER Work Phone: [facility] [employer] 02-07-2024 10:55-0400 Respiratory rate 16 /min Melida Huang APRN - DECK ENGINEER Work Phone: [employer] 02-03-2024 20:38-0400 Body height 160 cm Jess Daigle DO Work Phone: [facility] [employer] 02-03-2024 20:38-0400 Body mass index (BMI) [Ratio] 28.7 kg/m2 Jess Daigle DO Work Phone: [facility] [employer] 02-03-2024 20:38-0400 Body temperature 98.1 [degF] Jess Daigle DO Work Phone: [employer] 02-03-2024 20:38-0400 Body weight 73.48 kg Jess Daigle DO Work Phone: [facility] [employer] 02-03-2024 20:38-0400 Diastolic blood pressure 70 mm[Hg] Jess Daigle DO Work Phone: [facility] [employer] 02-03-2024 20:38-0400 Heart rate 84 /min Jess Daigle DO Work Phone: [employer] 02-03-2024 20:38-0400 Respiratory rate 16 /min Jess Daigle DO Work Phone: [facility] [employer] 02-03-2024 20:38-0400 SaO2% (BldA) [Mass fraction] 99 % Jess Daigle DO Work Phone: [employer] 02-03-2024 20:38-0400 Systolic blood pressure 116 mm[Hg] Jess Daigle DO Work Phone: [employer] 01-22-2024 14:41-0400 Body mass index (BMI) [Ratio] 28.86 kg/m2 [facility] 01-22-2024 14:41-0400 Body temperature 98.71 [degF] [facility] 01-22-2024 14:41-0400 Body weight 73.[address] [facility]yr [facility] 01-22-2024 14:41-0400 Diastolic blood pressure 58 mm[Hg] Chs 4yr [facility] 01-22-2024 14:41-0400 Systolic blood pressure 102 mm[Hg] [facility] 4yr [facility] 01-08-2024 14:52-0400 Heart rate 88 /min PHYSICIAN NO [facility] 01-08-2024 14:52-0400 Respiratory rate 16 /min PHYSICIAN NO [facility] 01-08-2024 14:52-0400 SaO2% (BldA) [Mass fraction] 97 % PHYSICIAN NO [facility] 01-08-2024 12:38-0400 Body height 160.02 cm PHYSICIAN NO [facility] 01-08-2024 12:38-0400 Body temperature 99.8 [degF] PHYSICIAN NO [facility] 01-08-2024 12:38-0400 Body weight 73 kg PHYSICIAN NO [facility] 01-08-2024 12:38-0400 Diastolic blood pressure 72 mm[Hg] PHYSICIAN NO [facility] 01-08-2024 12:38-0400 Systolic blood pressure 118 mm[Hg] PHYSICIAN NO [facility] 11-20-2023 16:30-0400 Diastolic blood pressure 65 mm[Hg] Mickiegeorgina Hallg DO Work Phone: [facility] 11-20-2023 16:30-0400 Heart rate 64 /min Mickiegeorgina Hallg DO Work Phone: [facility] 11-20-2023 16:30-0400 Respiratory rate 20 /min Mickiegeorgina Pecky La DO Work Phone: [facility] 11-20-2023 16:30-0400 SaO2% (BldA) [Mass fraction] 99 % Mickiegeorgina Hallg DO Work Phone: [facility] 11-20-2023 16:30-0400 Systolic blood pressure 120 mm[Hg] Mickiegeorgina Pecky La DO Work Phone: [facility] 11-20-2023 11:58-0400 Body temperature 97.2 [degF] Mickie La DO Work Phone: [employer] 11-20-2023 11:46-0400 Body height 160 cm Mickie Hallg DO Work Phone: [employer] 11-20-2023 11:46-0400 Body mass index (BMI) [Ratio] 30.01 kg/m2 Mickie Hallg DO Work Phone: [employer] 11-20-2023 11:46-0400 Body weight 76.84 kg Mickie La DO Work Phone: [facility] [employer] 08-15-2023 20:57-0500 Heart rate 90 /min Sage Andes DO Work Phone: [facility] [employer] 08-15-2023 20:57-0500 Respiratory rate 18 /min Sage Andes DO Work Phone: [facility] [employer] 08-15-2023 20:57-0500 SaO2% (BldA) [Mass fraction] 97 % Sage Andes DO Work Phone: [facility] [employer] 08-15-2023 20:42-0500 Diastolic blood pressure 50 mm[Hg] Sage Andes DO Work Phone: [facility] [employer] 08-15-2023 20:42-0500 Systolic blood pressure 108 mm[Hg] Sage Andes DO Work Phone: [employer] 08-15-2023 19:40-0500 Body height 160 cm Sage Andes DO Work Phone: [facility] [employer] 08-15-2023 19:40-0500 Body mass index (BMI) [Ratio] 30.11 kg/m2 Sage Andes DO Work Phone: [employer] 08-15-2023 19:40-0500 Body temperature 98.91 [degF] Sage Andpete DO Work Phone: [employer] 08-15-2023 19:40-0500 Body weight 77.11 kg Sage Andpete DO Work Phone: [facility] [employer] 07-25-2023 10:50-0500 Diastolic blood pressure 61 mm[Hg] Kisha Rangel MD Work Phone: [facility] [employer] 07-25-2023 10:50-0500 Heart rate 96 /min Kisha Rangel MD Work Phone: [employer] 07-25-2023 10:50-0500 Respiratory rate 18 /min Kisha Rangel MD Work Phone: [facility] [employer] 07-25-2023 10:50-0500 SaO2% (BldA) [Mass fraction] 97 % Kisha Rangel MD Work Phone: [facility] [employer] 07-25-2023 10:50-0500 Systolic blood pressure 104 mm[Hg] Kisha Rangel MD Work Phone: [employer] 07-25-2023 09:45-0500 Body temperature 98.01 [degF] Kisha Rangel MD Work Phone: [facility] [employer] 07-25-2023 08:21-0500 Body height 160 cm Kisha Rangel MD Work Phone: [employer] 07-25-2023 08:21-0500 Body mass index (BMI) [Ratio] 33.55 kg/m2 Kisha Rangel MD Work Phone: [facility] [employer] 07-25-2023 08:21-0500 Body weight 85.91 kg Kisha Rangel MD Work Phone: [facility] [employer] 02-27-2023 08:45-0400 Body temperature 98.2 [degF] PHYSICIAN [facility] 02-27-2023 08:45-0400 Diastolic blood pressure 83 mm[Hg] PHYSICIAN NO [facility] 02-27-2023 08:45-0400 Heart rate 75 /min PHYSICIAN NO [facility] 02-27-2023 08:45-0400 Respiratory rate 18 /min PHYSICIAN NO [facility] 02-27-2023 08:45-0400 SaO2% (BldA) [Mass fraction] 98 % PHYSICIAN NO [facility] 02-27-2023 08:45-0400 Systolic blood pressure 119 mm[Hg] PHYSICIAN NO [facility] 02-26-2023 20:35-0400 Body weight 92.98 kg PHYSICIAN NO [facility] 02-26-2023 17:40-0400 Body height 160.02 cm PHYSICIAN NO [facility] 02-25-2023 18:28-0400 Respiratory rate 18 /min PHYSICIAN NO [facility] 02-25-2023 18:20-0400 Diastolic blood pressure 50 mm[Hg] PHYSICIAN NO [facility] 02-25-2023 18:20-0400 Heart rate 82 /min PHYSICIAN NO [facility] 02-25-2023 18:20-0400 Systolic blood pressure 91 mm[Hg] PHYSICIAN NO [facility] 02-25-2023 16:00-0400 Body height 160.02 cm PHYSICIAN NO [facility] 02-25-2023 16:00-0400 Body temperature 96.4 [degF] PHYSICIAN NO [facility] 02-25-2023 16:00-0400 Body weight 92.98 kg PHYSICIAN NO [facility] 02-22-2023 17:00-0400 Respiratory rate 20 /min PHYSICIAN NO [facility] 02-22-2023 15:30-0400 SaO2% (BldA) [Mass fraction] 98 % PHYSICIAN NO [facility] 02-22-2023 15:06-0400 Body height 160.02 cm PHYSICIAN NO [facility] 02-22-2023 15:06-0400 Body weight 92.98 kg PHYSICIAN NO [facility] 02-22-2023 14:44-0400 Body temperature 97.7 [degF] PHYSICIAN NO [facility] 02-22-2023 14:42-0400 Diastolic blood pressure 73 mm[Hg] PHYSICIAN NO [facility] 02-22-2023 14:42-0400 Heart rate 104 /min PHYSICIAN NO [facility] 02-22-2023 14:42-0400 Systolic blood pressure 112 mm[Hg] PHYSICIAN NO [facility] 02-19-2023 14:04-0400 Respiratory rate 18 /min PHYSICIAN NO [facility] 02-19-2023 12:16-0400 Body temperature 97.2 [degF] PHYSICIAN NO [facility] 02-19-2023 11:36-0400 SaO2% (BldA) [Mass fraction] 97 % PHYSICIAN NO [facility] 02-19-2023 11:31-0400 Body height 160.02 cm PHYSICIAN NO [facility] 02-19-2023 11:31-0400 Body weight 92.98 kg PHYSICIAN NO [facility] 02-19-2023 11:28-0400 Diastolic blood pressure 74 mm[Hg] PHYSICIAN NO [facility] 02-19-2023 11:28-0400 Heart rate 110 /min PHYSICIAN NO [facility] 02-19-2023 11:28-0400 Systolic blood pressure 115 mm[Hg] PHYSICIAN NO [facility] 02-17-2023 19:23-0400 Respiratory rate 16 /min PHYSICIAN NO [facility] 02-17-2023 18:02-0400 Diastolic blood pressure 68 mm[Hg] PHYSICIAN NO [facility] 02-17-2023 18:02-0400 Heart rate 99 /min PHYSICIAN NO [facility] 02-17-2023 18:02-0400 Systolic blood pressure 108 mm[Hg] PHYSICIAN NO [facility] 02-17-2023 17:58-0400 Body height 160.02 cm PHYSICIAN NO [facility] 02-17-2023 17:58-0400 Body weight 92.98 kg PHYSICIAN NO [facility] 02-07-2023 17:30-0400 Respiratory rate 16 /min PHYSICIAN NO [facility] 02-07-2023 16:28-0400 SaO2% (BldA) [Mass fraction] 97 % PHYSICIAN NO [facility] 02-07-2023 16:25-0400 Body height 160.02 cm PHYSICIAN NO [facility] 02-07-2023 16:25-0400 Body weight 92.98 kg PHYSICIAN NO [facility] 02-07-2023 16:23-0400 Body temperature 97 [degF] PHYSICIAN NO [facility] 02-07-2023 16:23-0400 Diastolic blood pressure 72 mm[Hg] PHYSICIAN NO [facility] 02-07-2023 16:23-0400 Heart rate 94 /min PHYSICIAN NO [facility] 02-07-2023 16:23-0400 Systolic blood pressure 109 mm[Hg] PHYSICIAN NO [facility] 01-26-2023 23:47-0400 Respiratory rate 16 /min PHYSICIAN NO [facility] 01-26-2023 22:37-0400 Body height 160.02 cm PHYSICIAN NO [facility] 01-26-2023 22:37-0400 Body weight 93.44 kg PHYSICIAN NO [facility] 01-26-2023 22:37-0400 Diastolic blood pressure 51 mm[Hg] PHYSICIAN NO [facility] 01-26-2023 22:37-0400 Heart rate 91 /min PHYSICIAN NO [facility] 01-26-2023 22:37-0400 Systolic blood pressure 100 mm[Hg] PHYSICIAN NO [facility] 01-26-2023 22:36-0400 SaO2% (BldA) [Mass fraction] 97 % PHYSICIAN NO [facility] 01-26-2023 22:35-0400 Body temperature 96.8 [degF] PHYSICIAN NO [facility] 01-24-2023 16:44-0400 Respiratory rate 16 /min PHYSICIAN NO [facility] 01-24-2023 16:19-0400 Body temperature 97.5 [degF] PHYSICIAN NO [facility] 01-24-2023 16:19-0400 Diastolic blood pressure 56 mm[Hg] PHYSICIAN NO [facility] 01-24-2023 16:19-0400 Heart rate 95 /min PHYSICIAN NO [facility] 01-24-2023 16:19-0400 SaO2% (BldA) [Mass fraction] 98 % PHYSICIAN NO [facility] 01-24-2023 16:19-0400 Systolic blood pressure 99 mm[Hg] PHYSICIAN NO [facility] 01-24-2023 15:36-0400 Body height 160.02 cm PHYSICIAN NO [facility] 01-24-2023 15:36-0400 Body weight 93.44 kg PHYSICIAN NO [facility] 01-14-2023 13:12-0400 Diastolic blood pressure 62 mm[Hg] PHYSICIAN NO [facility] 01-14-2023 13:12-0400 Heart rate 82 /min PHYSICIAN NO [facility] 01-14-2023 13:12-0400 Respiratory rate 16 /min PHYSICIAN NO [facility] 01-14-2023 13:12-0400 Systolic blood pressure 109 mm[Hg] PHYSICIAN NO [facility] 01-14-2023 10:17-0400 Body height 160.02 cm PHYSICIAN NO [facility] 01-14-2023 10:17-0400 Body weight 92.53 kg PHYSICIAN NO [facility] 01-14-2023 10:15-0400 Body temperature 97.2 [degF] PHYSICIAN NO [facility] 01-14-2023 10:15-0400 SaO2% (BldA) [Mass fraction] 99 % PHYSICIAN NO [facility] 12-08-2022 13:30-0400 Respiratory rate 16 /min PHYSICIAN NO [facility] 12-08-2022 13:24-0400 Diastolic blood pressure 66 mm[Hg] PHYSICIAN NO [facility] 12-08-2022 13:24-0400 Heart rate 85 /min PHYSICIAN NO [facility] 12-08-2022 13:24-0400 Systolic blood pressure 118 mm[Hg] PHYSICIAN NO [facility] 12-08-2022 11:21-0400 Body height 152.4 cm PHYSICIAN NO [facility] 12-08-2022 11:21-0400 Body weight 92.07 kg PHYSICIAN NO [facility] 12-08-2022 11:09-0400 Body temperature 97.3 [degF] PHYSICIAN NO [facility] 11-20-2022 14:48-0400 Body temperature 97.5 [degF] PHYSICIAN NO [facility] 11-20-2022 14:48-0400 Diastolic blood pressure 65 mm[Hg] PHYSICIAN NO [facility] 11-20-2022 14:48-0400 Heart rate 85 /min PHYSICIAN NO [facility] 11-20-2022 14:48-0400 Respiratory rate 16 /min PHYSICIAN NO [facility] 11-20-2022 14:48-0400 SaO2% (BldA) [Mass fraction] 98 % PHYSICIAN NO [facility] 11-20-2022 14:48-0400 Systolic blood pressure 120 mm[Hg] PHYSICIAN NO [facility] 11-20-2022 12:40-0400 Body height 165.1 cm PHYSICIAN NO [facility] 11-20-2022 12:40-0400 Body weight 90.71 kg PHYSICIAN NO [facility] 11-03-2022 11:30-0400 Respiratory rate 18 /min PHYSICIAN NO [facility] 11-03-2022 09:54-0400 Diastolic blood pressure 75 mm[Hg] PHYSICIAN NO [facility] 11-03-2022 09:54-0400 Heart rate 83 /min PHYSICIAN NO [facility] 11-03-2022 09:54-0400 Systolic blood pressure 131 mm[Hg] PHYSICIAN NO [facility] 11-03-2022 09:51-0400 SaO2% (BldA) [Mass fraction] 98 % PHYSICIAN NO [facility] 11-03-2022 09:35-0400 Body temperature 97.7 [degF] PHYSICIAN NO [facility] 11-03-2022 09:25-0400 Body height 152.4 cm PHYSICIAN NO [facility] 11-03-2022 09:25-0400 Body weight 93.44 kg PHYSICIAN NO [facility] 04-26-2022 10:45-0500 Body height 162.56 cm Denzel Thomas Other [employer] Other 04-26-2022 10:45-0500 Body mass index (BMI) [Ratio] 34.84 kg/m2 Denzel Thomas Other [employer] Other 04-26-2022 10:45-0500 Body weight 92.08 kg Denzel Thomas Other [employer] Other 04-26-2022 10:45-0500 Diastolic blood pressure 86 mm[Hg] Denzel Thomas Other [employer] Other 04-26-2022 10:45-0500 Systolic blood pressure 123 mm[Hg] Denzel Maria Eugeniaandresamadeo Other [employer] Other Encounters Encounter Date Encounter Type Care Provider Facility Start: 03-19-2025 End: 03-20-2025 Evaluation and management of inpatient MICHAEL GURROLA MD -[address] [place] [address] Post Work Phone: Start: 02-24-2025 Registered Recurring Ramone Gutierrez MD -[facility] Start: 02-24-2025 End: 02-24-2025 ambulatory PHYSICIAN NO [facility] Work Phone: Start: 02-24-2025 End: 02-24-2025 Patient encounter procedure Fe Isabel AIRPORT OPERATIONS COORDINATOR -[facility] Work Phone: Start: 02-13-2025 Registered Recurring Ramone PINTO Credible Start: 02-08-2025 End: 02-08-2025 Departed Referred Fe Motab Janessa AIRPORT OPERATIONS COORDINATOR -[facility] Start: 02-08-2025 End: 02-08-2025 ambulatory PHYSICIAN NO [facility] Work Phone: Start: 02-08-2025 End: 02-08-2025 Patient encounter procedure Fe Isabel AIRPORT OPERATIONS COORDINATOR -[facility] Work Phone: Start: 01-27-2025 Registered Recurring Ramone PINTO Credible Start: 01-22-2025 End: 01-24-2025 Evaluation and management of inpatient Dashawn Travis [facility] Work Phone: Start: 01-22-2025 Non-patient / Non-visit Dashawn sánchez MD -[facility] Work Phone: Start: 01-08-2025 Registered Recurring Ramone PINTO Credible Start: 12-29-2024 End: 01-01-2025 Evaluation and management of inpatient Kit Travis [facility] Work Phone: Start: 12-29-2024 Non-patient / Non-visit Martin Gutierrez MD -[facility] Work Phone: Start: 12-03-2024 End: 12-06-2024 Evaluation and management of inpatient Kit Gutierrez Facility:[facility] Start: 12-03-2024 Non-patient / [facility]visit [facility] Work Phone: Start: 11-23-2024 End: 11-23-2024 ambulatory PHYSICIAN NO [facility] Work Phone: Start: 11-23-2024 End: 11-23-2024 Departed Referred PHYSICIAN NO [facility] Start: 11-15-2024 Non-patient / Non-visit PHYSICIAN NO [facility] Physician [facility] Work Phone: Start: 11-14-2024 End: 11-16-2024 Evaluation and management of inpatient PHYSICIAN NO [facility] Work Phone: Start: 11-07-2024 Non-patient / Non-visit PHYSICIAN NO [facility] Physician [facility] Work Phone: Start: 11-07-2024 End: 11-10-2024 Evaluation and management of inpatient PHYSICIAN NO [facility] Work Phone: Start: 11-06-2024 End: 11-06-2024 Office outpatient visit 25 minutes Michael Gurrola MD Work Phone: [facility] Comment on above: Severe episode of re current major depressive disorder, without psychotic features (HCC) (CMS/HCC) (Primary Dx) Start: 11-06-2024 End: 11-06-2024 ambulatory MICHAEL GURROLA Not Available Start: 11-06-2024 End: 11-06-2024 Bamboo flowskeily Gurrola MD Work Phone: [facility] Start: 11-06-2024 End: 11-06-2024 Bamurielo andreia Gurrola MD Work Phone: [facility] Start: 09-17-2024 End: 09-17-2024 Bamboo flowskeily Gurrola MD Work Phone: [facility] Start: 09-17-2024 End: 09-17-2024 Bamurielo andreia Gurrola MD Work Phone: [facility] Start: 09-17-2024 End: 09-17-2024 ambulatory MICHAEL GURROLA Not Available Start: 09-17-2024 End: 09-17-2024 Patient encounter procedure Michael Gurrola MD Work Phone: [facility] Comment on above: Abdominal pain in fe male (Primary Dx); Pelvic pain in female Start: 09-16-2024 End: 09-16-2024 Emergency department patient visit NO PCP NO PCP [facility] Start: 09-12-2024 End: 09-12-2024 ambulatory MICHAEL GURROLA Not Available Start: 09-12-2024 End: 09-12-2024 Patient encounter procedure Michael Gurrola MD Work Phone: [facility] Comment on above: Abdominal pain in fe male (Primary Dx) Start: 09-11-2024 End: 09-11-2024 Bamboo flowsheet Michael Gurrola MD Work Phone: [facility] Start: 09-11-2024 End: 09-11-2024 Bamboo flowsheet Michael Gurrola MD Work Phone: [facility] Start: 09-11-2024 End: 09-11-2024 Office outpatient visit 25 minutes Michael Gurrola MD Work Phone: [facility] Comment on above: Abdominal pain in fe male (Primary Dx) Start: 09-11-2024 End: 09-11-2024 ambulatory MICHAEL GURROLA Not Available Start: 07-30-2024 End: 07-30-2024 Telephone encounter Michael Gurrola MD Work Phone: [facility] Start: 07-22-2024 End: 07-22-2024 ambulatory [facility] Work Phone: Start: 07-22-2024 End: 07-22-2024 Patient encounter procedure [facility] Work Phone: Start: 07-10-2024 End: 07-10-2024 Office outpatient visit 25 minutes Michael Gurrola MD Work Phone: [facility] Comment on above: Right lower quadrant pain (Primary Dx); Pelvic pain in female; Right ovarian cyst Start: 07-10-2024 End: 07-10-2024 Bamboo flowsheet Michael Gurrola MD Work Phone: [facility] Start: 07-10-2024 End: 07-10-2024 Bamboo flowsheet Michael Gurrola MD Work Phone: [facility] Start: 07-10-2024 End: 07-10-2024 ambulatory MICHAEL GURROLA Not Available Start: 04-10-2024 End: 04-16-2024 Evaluation and management of inpatient Cristiano Singh MD Work Phone: [facility] Comment on above: Pneumoperitoneum (Pr imary Dx); Perforated diverticulum; Peritoneal cavity free air Start: 04-09-2024 End: 04-09-2024 Emergency department patient visit Tyrone Benito DO Work Phone: [facility] Comment on above: Right ovarian cyst ( Primary Dx) Start: 04-02-2024 End: 04-02-2024 Emergency department patient visit Tyrone Benito DO Work Phone: [facility] Comment on above: Right ovarian cyst ( Primary Dx) Start: 03-17-2024 End: 03-17-2024 Emergency department patient visit Prudence Wong MD Work Phone: [facility] Start: 03-10-2024 End: 03-10-2024 Emergency department patient visit MELIDA Katharine BAINSREINA [facility] Start: 02-15-2024 End: 02-15-2024 Office outpatient visit [address] [facility] Referral Clerk [facility] for [facility] - Women's Services Comment on above: Pelvic pain (Primary Dx); Routine general medical examination at a health care facility Start: 02-15-2024 End: 02-15-[address] [facility] Resident Zan Mathew Work Phone: Start: 02-07-2024 End: 02-08-2024 Emergency department patient visit MARNIE CARVERMABRISA [facility] Start: 02-07-2024 End: 02-08-2024 Emergency department patient visit NO PCP NO PCP [facility] Start: 02-07-2024 End: 02-07-2024 Emergency department patient visit MELIDA Katharine [facility] ED Comment on above: Abdominal pain, righ t lower quadrant (Primary Dx); Pelvic pain Start: 02-06-2024 End: 02-06-[address] [facility] Start: 02-06-2024 End: 02-06-2024 Subsequent hospital visit by physician Melida Huang AIRPORT OPERATIONS COORDINATOR - DECK ENGINEER Work Phone: [facility] Laboratory Comment on above: Pelvic pain Start: 02-05-2024 End: 02-05-2024 Emergency department patient visit ALEX COWAN [facility] Start: 02-03-2024 End: 02-04-2024 Emergency department patient visit Jess Alexandre Liv DO Work Phone: [facility] ED Comment on above: Right ovarian cyst ( Primary Dx) Start: 01-22-2024 End: 01-22-2024 Office outpatient new [address] [facility] Comment on above: Pelvic abscess in fe male (Primary Dx); Change or removal of drains Start: 01-22-2024 End: 01-22-2024 ambulatory [facility] Start: 01-19-2024 End: 01-19-2024 Telephone encounter [facility] Work Phone: [facility] Start: 01-15-2024 End: 01-15-2024 ambulatory [facility] Start: 01-14-2024 End: 01-14-2024 Telephone encounter Genna Kulkarni [facility] Call Mame maldonado Comment on above: Pain; Weakness - Gen eralized Start: 01-14-2024 [facility] Start: 01-13-2024 End: 01-17-2024 Evaluation and management of inpatient [facility] Start: 01-13-2024 Emergency department patient visit DIVINE COLEMAN [facility] Start: 01-13-2024 End: 01-13-2024 Telephone encounter Chantelle Rizwan [facility] Call Mame maldonado Comment on above: Medication Request Start: 01-13-2024 End: 01-13-2024 Emergency department patient visit DIVINE COLEMAN [facility] Start: 01-09-2024 End: 01-09-2024 ambulatory MICHAEL GURROLA Not Available Start: 01-08-2024 End: 01-08-2024 Emergency department patient visit PHYSICIAN MIHAI ANDRADE [facility] Work Phone: Start: 01-04-2024 End: 01-04-2024 Telephone encounter Lupe Gonsalo [facility] Women's Services Start: 12-18-2023 End: 12-18-2023 Emergency department patient visit None Provider Facility:[facility] Start: 11-28-2023 End: 11-28-2023 [facility] Start: 11-26-2023 End: 11-27-2023 Emergency department patient visit SHEREEN GIRALDO [facility] Start: 11-20-2023 End: 11-20-2023 ambulatory [facility] Start: 11-20-2023 End: 11-20-2023 [facility] Comment on above: Postoperative pain ( Primary Dx); Menorrhagia with regular cycle; Pelvic pain; Adenomyosis; Pelvic congestion syndrome Start: 10-18-2023 End: 10-18-2023 ambulatory [facility] Facility:[facility] Start: 08-15-2023 End: 08-15-2023 Emergency department patient visit Sage Marin DO Work Phone: [facility] ED Comment on above: Viral upper respirat ory tract infection (Primary Dx) Start: 07-25-2023 End: 07-25-2023 [facility] Start: 07-25-2023 End: 07-25-2023 Subsequent hospital visit by physician Kisha Rangel MD Work Phone: [facility] Comment on above: Chronic GERD; Diarrhea, unspecified type; Gas pain Start: 06-09-2023 End: 06-09-2023 Emergency department patient visit None Provider Facility:[facility] Start: 06-04-2023 End: 06-04-2023 ambulatory None Provider Facility:[facility] Start: 05-05-2023 End: 05-05-[address] [facility] Work Phone: Start: 05-05-2023 End: 05-05-2023 Departed Referred PHYSICIAN NO [facility] [place] Work Phone: Start: 04-15-2023 End: 04-16-2023 Emergency department patient visit None Provider Facility:[facility] Start: 02-26-2023 End: 02-27-2023 Evaluation and management of inpatient PHYSICIAN NO [facility] [place] Work Phone: Start: 02-25-2023 End: 02-25-[address] [facility] Work Phone: Start: 02-25-2023 End: 02-25-2023 Patient encounter procedure PHYSICIAN NO [facility] Labor - O/P Start: 02-22-2023 End: 02-22-[address] [facility] Work Phone: Start: 02-22-2023 End: 02-22-2023 Patient encounter procedure PHYSICIAN NO [facility] Labor - O/P Start: 02-19-2023 End: 02-19-[address] [facility] Work Phone: Start: 02-19-2023 End: 02-19-2023 Patient encounter procedure PHYSICIAN NO [facility] Labor - O/P Start: 02-17-2023 End: 02-17-[address] [facility] Work Phone: Start: 02-17-2023 End: 02-17-2023 Patient encounter procedure PHYSICIAN NO [facility] [place] [facility] - O/P Start: 02-16-2023 End: 02-16-2023 Departed Referred PHYSICIAN NO [facility] [place] Work Phone: Start: 02-07-2023 End: 02-07-2023 Patient encounter procedure PHYSICIAN NO [facility] [place] [facility] - O/P Start: 01-26-2023 End: 01-26-[address] [facility] Work Phone: Start: 01-26-2023 End: 01-26-2023 Patient encounter procedure PHYSICIAN NO [facility] [place] [facility] - O/P Start: 01-24-2023 End: 01-24-[address] [facility] Work Phone: Start: 01-24-2023 End: 01-24-2023 Patient encounter procedure PHYSICIAN NO [facility] Labor - O/P Start: 01-16-2023 End: 01-16-2023 ambulatory None Provider Facility:[facility] Start: 01-14-2023 End: 01-14-[address] [facility] Work Phone: Start: 01-14-2023 End: 01-14-2023 Patient encounter procedure PHYSICIAN NO [facility]3 [facility] Labor - O/P Start: 01-11-2023 End: 01-11-2023 Emergency department patient visit Anjel Yates Facility:[facility] Start: 01-05-2023 End: 01-05-2023 ambulatory None Provider Facility:[facility] Start: 12-08-2022 End: 12-08-2022 Patient encounter procedure PHYSICIAN NO [facility] [place] [facility] - O/P Start: 11-20-2022 End: 11-20-[address] [facility] Work Phone: Start: 11-20-2022 End: 11-20-2022 Patient encounter procedure PHYSICIAN NO [facility] [place] [facility] - O/P Start: 11-03-2022 End: 11-03-2022 Patient encounter procedure PHYSICIAN NO [facility] [place] Labor - O/P Start: 07-21-2022 End: 07-21-2022 ambulatory Denzel Thomas Other [email or web address] Other Start: 07-21-2022 Telephone encounter Denzel Thomas [facility] Start: 07-20-2022 End: 07-20-2022 ambulatory Denzel Thomas Other [email or web address] Other Start: 07-20-2022 Telephone encounter Denzel HENRY [facility] Start: 07-05-2022 End: 07-05-2022 ambulatory Denzel Thomas Other [email or web address] Other Start: 07-05-2022 Telephone encounter Denzel HENRY [facility] Start: 06-30-2022 End: 06-30-2022 ambulatory Denzel Thomas Other [email or web address] Other Start: 06-30-2022 Telephone encounter Denzel HENRY [facility] Start: 06-14-2022 End: 06-14-2022 ambulatory Denzel Delatorreamadeo Other [email or web address] Other Start: 06-14-2022 Telephone encounter Denzel HENRY [facility] Start: 05-30-2022 End: 05-30-2022 ambulatory Denzel Delatorrey Other [email or web address] Other Start: 05-30-2022 Telephone encounter Denzel Thomas CAR[facility] Start: 04-26-2022 End: 04-26-2022 ambulatory Denzel Delatorrey Other [email or web address] Other Start: 04-26-2022 [facility] visit new patient Denzel Thomas [facility] Start: 03-21-2022 End: 03-21-2022 ambulatory Hernan Salas Other [email or web address] Other Start: 03-21-2022 Telephone encounter Hernan Calvo ck [facility] Procedures Date Procedure Procedure Detail Performing Clinician Start: 02-08-2025 COVID Antigen (POC) PHY SICIAN NO FAMILY Start: 02-08-2025 Quick Strep (POC) PHYSI ADAM NO FAMILY Start: 02-08-2025 Urine culture PHYSICIAN NO FAMILY Start: 11-23-2024 Urine culture PHYSICIAN NO FAMILY Start: 11-15-2024 Plain X-ray of right hand PHYSICIAN NO FAMILY Start: 04-16-2024 Radiologic exam abdo men 1 view Nicolette Wyman MD Work Phone: Start: 04-15-2024 Blood count complete auto&auto difrntl wbc Aubrie L Isaac AIRPORT OPERATIONS COORDINATOR - DECK ENGINEER Work Phone: Start: 04-14-2024 Radiologic exam abdo men 1 view Nicolette Wyman MD Work Phone: Start: 04-14-2024 Assay of magnesium Tate n L Isaac AIRPORT OPERATIONS COORDINATOR - DECK ENGINEER Work Phone: Start: 04-13-2024 Radiologic exam abdo men 1 view Nicolette Wyman MD Work Phone: Start: 04-13-2024 Assay of magnesium Tate n L Isaac AIRPORT OPERATIONS COORDINATOR - DECK ENGINEER Work Phone: Start: 04-12-2024 Assay of magnesium Tate n L Isaac AIRPORT OPERATIONS COORDINATOR - DECK ENGINEER Work Phone: Start: 04-11-2024 End: 04-12-2024 Rhythm ecg 1-3 leads w/interpretation & report Unknown Provider Result Start: 04-11-2024 Blood count complete auto&auto difrntl wbc Aubrie L Isaac AIRPORT OPERATIONS COORDINATOR - DECK ENGINEER Work Phone: Start: 04-11-2024 SURGICAL PATHOLOGY [...] Phone: Start: 04-10-2024 Urinalysis microscopic only Juanis Mendez Palencia PA-C Work Phone: Start: 04-10-2024 Urnls [...] Work Phone: Start: 04-02-2024 Us transvaginal Rebecca na R Thong DO Work Phone: Start: 04-02-2024 Comprehensive metabo lic panel Tyrone R Thong DO Work Phone: Start: 04-02-2024 Urinalysis microscopic only Tyrone R Thong DO Work Phone: Start: 04-02-2024 Urnls dip [...] abdomen & pelvis w/contrast material Janessa Marshall AIRPORT OPERATIONS COORDINATOR - DECK ENGINEER Work Phone: Start: 02-07-2024 Urinalysis microscopic only Marianela Lizarraga MD Work Phone: Start: 02-07-2024 Urnls dip stick/tabl et rgnt auto w/o microscopy Marianela Lizarraga MD Work Phone: Start: 02-07-2024 End: 02-07-2024 Comprehensive metabolic panel Marianela Lizarraga MD Work Phone: Start: 02-03-2024 Ct abdomen & pelvis w/contrast material Jess Alexandre Daigle DO Work Phone: Start: 02-03-2024 Comprehensive [...] Start: 07-25-2023 Urine test visual color cmprsn uzmas Kisha Rangel MD Work Phone: Start: 02-26-2023 Urine culture PHYSICIAN NO FAMILY Start: 02-22-2023 Urine culture PHYSICIAN NO FAMILY Start: 02-16-2023 Streptococcus agalac tiae culture PHYSICIAN NO FAMILY Start: 01-05-2022 Adult depression scr eening assessment Lupe Claros [facility] Start: 05-19-2020 Microscopic observat ion [Identifier] in Cervix by Cyto stain Lupe Claros [facility] Plan of Treatment Date Care Activity Detail Author Start: 02-27-2033 DTaP,Tdap and Td Vaccines (9 - Td or Tdap) DTaP,Tdap and Td Vaccines (9 - Td or Tdap) [facility] Start: 02-27-2033 DTaP/Tdap/Td vaccine (9 - Td or Tdap) DTaP/Tdap/Td vaccine (9 - Td or Tdap) [facility] Start: 12-09-2031 DTaP,Tdap and Td Vaccines (8 - Td or Tdap) DTaP,Tdap and Td Vaccines (8 - Td or Tdap) [facility] Start: 03-20-2025 [facility] Start: 03-20-[address] [facility] Start: 02-17-2025 Influenza vaccination Influenza Vaccine (Season Ended) [facility] Start: 02-14-2025 Adult BMI Screening Adult BMI Screening [facility] Start: 02-14-2025 Tobacco Screening Tobacco Screening [facility] Start: 02-08-[address] [facility] Start: 02-08-2025 Bacteria identified in Urine by Culture Urine Culture [facility] Start: 01-24-2025 [facility] Start: 01-23-2025 [facility] Start: 01-22-[address] [facility] Start: 01-22-2025 [facility] Start: 01-21-2025 Adult BMI Screening Adult BMI Screening [facility] Start: 01-21-2025 Tobacco Screening Tobacco Screening [facility] Start: 01-16-2025 Adult BMI Screening Adult BMI Screening [facility] Start: 01-14-2025 Tobacco Screening Tobacco Screening [facility] Start: 01-12-2025 Adult BMI Screening Adult BMI Screening [facility] Start: 01-12-2025 Tobacco Screening Tobacco Screening [facility] Start: 01-01-2025 [facility] Start: 12-30-[address] [facility] Start: 12-06-2024 [facility] Start: 12-03-[address] [facility] Start: 11-23-[address] [facility] Start: 11-23-2024 Bacteria identified in Urine by Culture Urine Culture [facility] Start: 11-16-2024 [facility] Start: 11-15-[address] [facility] Start: 11-15-2024 [facility] Start: 11-10-2024 [facility] Start: 11-07-2024 Referral to Internetworking Technician [facility] Start: 11-07-[address] [facility] Start: 11-06-2024 End: 11-06-2024 Patient encounter procedure 11/06/2024 4:00 PM EDT Office Visit [facility] [address] [place] [address] Michael Gurrola MD [address] [place] [address] Arrived [facility] Comment on above: Arrived Start: 10-30-2024 Depression Monitoring Depression Monitoring [facility] Start: 09-17-2024 End: 09-17-2024 Patient encounter procedure 09/17/2024 4:15 PM EDT Office Visit [facility] [address] [place] [phone] Michael Gurrola MD [address] [place] [address] [facility] Start: 09-17-2024 End: 09-17-2024 Professional / ancillary services management 09/17/2024 3:00 PM EDT Ancillary Procedure [facility] [address] [place] [phone] [facility] Start: 09-17-2024 End: 09-17-2024 Patient encounter procedure 09/17/2024 11:45 AM EDT Office Visit [facility] [address] [place] [phone] Michael Gurrola MD [address] [place] [address] [facility] Start: 09-11-2024 End: 09-11-2024 Patient encounter procedure 09/11/2024 1:30 PM EDT Office Visit [facility] [address] [place] [phone] Michael Gurrola MD [address] [place] [address] Arrived [facility] Comment on above: Arrived Start: 08-01-2024 End: 08-01-2024 Patient encounter procedure 08/01/2024 1:45 PM EST Office Visit [facility] [address] [place] [phone] Michael Gurrola MD [address] [place] [address] [facility] Start: 08-01-2024 End: 08-01-2024 Professional / ancillary services management 08/01/2024 1:00 PM EST Ancillary Procedure [facility] [address] [place] [phone] [facility] Start: 07-19-2024 Depression Monitoring Depression Monitoring [facility] Start: 07-10-2024 End: 07-10-2024 Patient encounter procedure 07/10/2024 2:30 PM EST Office Visit [facility] [address] [facility] [address] [place] [phone] Michael Gurrola MD [address] [place] [address] Pelvic pain in female; Chronic low back pain without sciatica, unspecified back pain laterality [facility] Comment on above: Pelvic pain in female; Chronic low back pain without sciatica, unspecified back pain laterality Start: 06-04-2024 End: 06-04-2024 Patient encounter procedure 06/04/2024 11:30 AM EST Office Visit [facility] [address] [facility] [address] Asael Tapia, AIRPORT OPERATIONS COORDINATOR-DECK ENGINEER [address] [place] [address] [facility] Start: 05-29-2024 End: 05-29-2024 Patient encounter procedure 05/29/2024 2:00 PM EST Office Visit [facility] Part [address] [place] [address] Nj Bowser MD [address] [place] [address] [address] [place] [address] follow up from surgery 04/10/24 [facility] Comment on above: follow up from surgery 04/10/24 Start: 04-23-2024 End: 04-23-2024 Patient encounter procedure 04/23/2024 4:00 PM EST Office Visit [facility] Part [address] [place] [address] Mary Ellen Soriano, DO [address] [place] [address] Post op (Francisco04/10)-ex lap, appy [facility] GENERAL SURGERY Part [facility] Comment on above: Post op (Francisco 04/10)-ex lap, appy Start: 03-22-2024 End: 03-22-2024 Patient encounter procedure 03/22/2024 1:30 PM EDT Office Visit [facility] - Women's Services [facility] [place] [phone] [facility] Start: 02-20-2024 End: 02-20-2024 Patient encounter procedure 02/20/2024 1:00 PM EDT Office Visit [facility] OBST[facility]YNECOLOG[facility] Part [address] [place] [address] Mickie Barrientos, DO [address] [place] [address] P/O follow up infection [facility] Comment on above: P/O follow up infection Start: 02-18-2024 COVID-19 Vaccine ( season) COVID-19 Vaccine ( season) [facility] Start: 02-18-2024 Influenza vaccination [facility] Start: 02-06-2024 End: 02-06-2024 Patient encounter procedure 02/06/2024 4:30 PM EDT Office Visit [facility] Obstetrics & Gynecology [address] [facility] [place] [address] Esther Burrell PA-C [address] [place] [address] F/U from admission to [facility] Comment on above: F/U from admission to [facility] Start: 01-18-2024 Influenza vaccination [facility] Start: 01-08-2024 [facility] Start: 01-08-2024 Bacteria identified in Blood by Culture [facility] Start: 01-08-2024 Genital Culture Genital Culture [facility] Start: 01-05-2024 End: 01-05-2024 Patient encounter procedure 01/05/2024 10:00 AM EDT Office Visit [facility] Certified Nurse [facility] [place] [address] [phone] [facility] Certified Nurse [facility] [place] Start: 12-26-2023 End: 12-26-2023 Patient encounter procedure 12/26/2023 11:45 AM EDT Office Visit [facility] [address] [place] [address] Mickie Barrientos DO [address] [place] [address] 6 wk [facility]12 [facility] Comment on above: 6 wk post-op [facility] 09/12 Start: 12-06-2023 End: 12-06-2023 Patient encounter procedure 12/06/2023 11:30 AM EDT Office Visit [facility] [address] [place] [address] Esther Burrell PA-C [address] [place] [address] 2 wk post-op [facility] 09/12 [facility] Comment on above: 2 wk post-op [facility] 09/12 Start: 11-20-2023 End: 11-20-2023 Laps total hysterect 250 gm/< w/rmvl tube/ovary HYSTERECTOMY VAGINAL LAPAROSCOPIC ROBOTIC ASSISTED Menorrhagia with regular cycle Pelvic pain Adenomyosis Pelvic congestion syndrome 11/20/2023 1:56 PM EDT [facility] Start: 08-29-2023 End: 08-29-2023 Patient encounter procedure 08/29/2023 11:30 AM EDT Office Visit [facility] [address] [place] [phone] Mickie Barrientos, DO [address] [place] [address] heading machine operator us for RLQ pain & DUB / discuss Hyst / Kp Pt [facility]OLOG[facility] Comment on above: heading machine operator us for RLQ pain & DUB / discuss Hyst / Kp Pt Start: 08-29-2023 End: 08-29-2023 Professional / ancillary services management 08/29/2023 11:00 AM EDT Ancillary Procedure [facility] [address] [place] [phone] heading machine operator us / RLQ pain & DUB [facility] Comment on above: heading machine operator us / RLQ pain & DUB Start: 08-23-2023 End: 08-23-2023 Patient encounter procedure 08/23/2023 10:30 AM EST Office Visit [facility] Gastroenterology [address] [place] [phone] Pia Coates, AIRPORT OPERATIONS COORDINATOR - DECK ENGINEER [address] [facility] [address] [place] [phone] 6 wks [facility] Comment on above: 6 wks Start: 07-25-2023 End: 07-25-2023 Esophagogastroduodenoscopy transoral diagnostic EGD ESOPHAGOGASTRODUODENOSCOPY Chronic GERD Diarrhea, unspecified type Gas pain 07/25/2023 9:18 AM EST [facility] Start: 05-19-2023 Screening for malignant neoplasm of cervix Pap Smear [facility] Start: 02-27-2023 Rubella IgG measurement [facility] Start: 02-27-2023 [facility] Start: 02-27-2023 [facility] Start: 02-26-[address] [facility] Start: 02-26-[address] [facility] Start: 02-26-2023 [facility] Start: 02-26-2023 Delivery of Products of Conception, External Approach Delivery of Products of Conception, External Approach [facility] Start: 02-26-2023 Drainage of Amniotic Fluid, Therapeutic from Products of Conception, Via Natural or Artificial Opening Drainage of Amniotic Fluid, Therapeutic from Products of Conception, Via Natural or Artificial Opening [facility] Start: 02-26-2023 [address]rine [address] Urine Culture [facility] Start: 02-25-2023 [facility] Start: 02-25-[address] [facility] Start: 02-22-2023 [facility] Start: 02-22-[address] [facility] Start: 02-22-2023 Bacteria identified in Urine by Culture [facility] Start: 02-19-2023 [facility] Start: 02-19-[address] [facility] Start: 02-17-2023 [facility] Start: 02-17-[address] [facility] Start: 02-17-2023 COVID-19 Vaccine ( season) COVID-19 Vaccine ( season) [facility] Start: 02-16-2023 Streptococcus agalactiae culture Group B Streptococcus Culture [facility] Start: 02-07-2023 [facility] Start: 02-07-[address] [facility] Start: 01-26-2023 [facility] Start: 01-26-[address] [facility] Start: 01-24-[address] [facility] Start: 01-24-2023 End: 01-24-2023 [facility] Start: 01-17-2023 Influenza vaccination Flu vaccine (#1) [facility] [employer] Start: 01-14-2023 [facility] Start: 01-14-[address] [facility] Start: 01-05-2023 Adult BMI Screening Adult BMI Screening [facility] Start: 01-05-2023 Depression Screening Depression Screening [facility] Start: 01-05-2023 Tobacco Screening Tobacco Screening [facility] Start: 12-08-2022 [facility] Start: 12-08-[address] [facility] Start: 11-20-2022 [facility] Start: 11-20-[address] [facility] Start: 11-03-2022 [facility] Start: 11-03-[address] [facility] Start: 09-12-2016 Screening for malignant neoplasm of cervix Pap smear [facility] [employer] Start: 09-12-2013 Adult BMI Follow Up Plan Adult BMI Follow Up Plan [facility] Start: 09-12-2013 Hepatitis C screening Hepatitis C screen [facility] [employer] Start: 09-12-2010 HIV screening HIV screen [facility] [employer] Start: 02-12-2003 Varicella vaccine (2 of 2 - 2-dose childhood series) Varicella vaccine (2 of 2 - 2-dose childhood series) [facility] [employer] Start: 09-12-2001 Pneumococcal 0-64 years Vaccine (1 of 2 - PCV) Pneumococcal 0-64 years Vaccine (1 of 2 - PCV) [facility] Start: 03-15-1996 COVID-19 Vaccine (#1) COVID-19 Vaccine (#1) [facility] [employer] Start: 1995 Tobacco Counseling Tobacco Counseling [facility] Bacteria identified in Genital specimen by Aerobe culture [facility] End: 02-03-2024 Blood Culture [address] [facility] [employer] Comment on above: One Time for 1 Occurrences starting 01/17 until 02/03/2024 CT Abdomen and Pelvi s W contrast IV CT ABDOMEN PELVIS W IV CONTRAST Additional Contrast? None Imaging STAT 04/02/2024 12:29 PM EDT [facility] Hepatitis B virus jennings rface Ag [Presence] in Serum or Plasma by Immunoassay [facility] End: 11-20-2023 INITIATE PACU OXYGEN THERAPY PROTOCOL Initiate PACU Oxygen Therapy Protocol Respiratory Care Routine Continuous until discontinued starting 11/20/2023 [employer] Comment on above: Continuous until discontinued starting 0 11/20/2023 Oxygen therapy [Mini mum Data Set] Initiate Oxygen Therapy Protocol Respiratory Care Routine As Needed until discontinued starting 11/20/2023 [employer] Comment on above: As Needed until discontinued starting Oxygen therapy [Mini mum Data Set] Initiate Oxygen Therapy Protocol Respiratory Care Routine Daily until discontinued starting 04/11/2024 [employer] Comment on above: Daily until discontinued starting 2023 Patient Education [facility] Work Phone: Patient referral [facility] Work Phone: End: 11-20-2023 , urine POCT , urine POCT Point of Care Testing Routine One Time for 1 Occurrences starting 11/20/2023 until 11/20/2023 [employer] Comment on above: One Time for 1 Occurrences starting 08/2023 until 11/20/2023 Reagin Ab [Presence] in Serum by RPR [facility] Surgical Pathology Surgical Path ology Lab Routine Chronic GERD Diarrhea, unspecified type Gas pain Release Upon Ordering for 1 Occurrences starting 07/25/2023 [employer] Phone: Comment on above: Release Upon Ordering for 1 Occurrences starting 07/25/2023 Surgical Pathology Surgical Path ology Lab Routine Menorrhagia with regular cycle Pelvic pain Adenomyosis Pelvic congestion syndrome Release Upon Ordering for 1 Occurrences starting 11/20/2023 [employer] Phone: Comment on above: Release Upon Ordering for 1 Occurrences starting 11/20/2023 End: 11-20-2023 SURGICAL PATHOLOGY REPORT SURGICAL PATHOLOGY REPORT Lab Routine Once for 1 Occurrences starting 11/20/2023 until 11/20/2023 [employer] Comment on above: Once for 1 Occurrences starting 11/20/19 until 11/20/2023 Surgical pathology study Surgica l Pathology Lab Routine Peritoneal cavity free air Release Upon Ordering for 1 Occurrences starting 04/10/2024 [employer] Comment on above: Release Upon Ordering for 1 Occurrences starting 04/10/2024 End: 03-17-2024 US Pelvis transvaginal [employer] Work Phone: Comment on above: Once for 1 Occurrences starting 03/17/20 until 03/17/2024 End: 02-06-2024 Vaginitis DNA Probe [employer] Comment on above: 1 Occurrences starting 02/06/2024 until 02/06/2024 [facility] Immunizations Immunization Date Immunization Notes Care Provider Fa samanthaty 02-27-2023 tetanus toxoid, redu hoda diphtheria toxoid, and acellular pertussis vaccine, adsorbed PHYSICIAN NO [facility] 12-08-2021 measles, mumps and rubella virus vaccine PHYSICIAN NO [facility] 12-08-2021 tetanus toxoid, redu hoda diphtheria toxoid, and acellular pertussis vaccine, adsorbed PHYSICIAN NO [facility] 12-27-2018 tetanus toxoid, redu hoda diphtheria toxoid, and acellular pertussis vaccine, adsorbed [facility] Work Phone: [facility] 07-26-2014 measles, mumps and rubella virus vaccine [facility] Work Phone: [facility] 04-24-2014 influenza, seasonal, injectable, preservative free [facility] Work Phone: [facility] 04-24-2014 influenza virus vaccine, unspecified formulation Lupe Claros [facility] 11-20-2002 diphtheria, tetanus toxoids and acellular pertussis vaccine, unspecified formulation [facility] Work Phone: [facility] 11-20-2002 haemophilus influenz ae type b conjugate and Hepatitis B vaccine [facility] Work Phone: [facility] 11-20-2002 measles, mumps and rubella virus vaccine [facility] Work Phone: [facility] 11-20-2002 varicella virus vaccine [facility] Work Phone: [facility] 04-03-2002 diphtheria, tetanus toxoids and acellular pertussis vaccine, unspecified formulation [facility] Work Phone: [facility] 04-03-2002 haemophilus influenz ae type b vaccine, conjugate unspecified formulation [facility] Work Phone: [facility] 04-03-2002 poliovirus vaccine, inactivated [facility] Work Phone: [facility] 02-07-2002 diphtheria, tetanus toxoids and acellular pertussis vaccine, unspecified formulation [facility] Work Phone: [facility] 02-07-2002 haemophilus influenz ae type b conjugate and Hepatitis B vaccine [facility] Work Phone: [facility] 02-07-2002 poliovirus vaccine, inactivated [facility] Work Phone: [facility] 12-05-2001 diphtheria, tetanus toxoids and acellular pertussis vaccine, unspecified formulation [facility] Work Phone: [facility] 12-05-2001 haemophilus influenz ae type b conjugate and Hepatitis B vaccine [facility] Work Phone: [facility] 12-05-2001 poliovirus vaccine, inactivated [facility] Work Phone: [facility] 10-31-2000 diphtheria, tetanus toxoids and acellular pertussis vaccine, unspecified formulation [facility] Work Phone: [facility] 10-31-2000 measles, mumps and rubella virus vaccine [facility] Work Phone: [facility] 10-31-2000 poliovirus vaccine, inactivated [facility] Work Phone: [facility] 11-01-1996 diphtheria, tetanus toxoids and acellular pertussis vaccine, unspecified formulation [facility] Work Phone: [facility] 11-01-1996 haemophilus influenz ae type b vaccine, conjugate unspecified formulation [facility] Work Phone: [facility] 11-01-1996 measles, mumps and rubella virus vaccine [facility] Work Phone: [facility] 04-17-1996 DTP-Haemophilus influenzae type b conjugate vaccine [facility] Work Phone: [facility] 04-17-1996 hepatitis B vaccine, pediatric or pediatric/adolescent dosage [facility] Work Phone: [facility] 04-17-1996 trivalent poliovirus vaccine, live, oral [facility] Work Phone: [facility] 02-01-1996 DTP-Haemophilus influenzae type b conjugate vaccine [facility] Work Phone: [facility] 02-01-1996 trivalent poliovirus vaccine, live, oral [facility] Work Phone: [facility] 1995 DTP-Haemophilus influenzae type b conjugate vaccine [facility] Work Phone: [facility] 1995 hepatitis B vaccine, pediatric or pediatric/adolescent dosage [facility] Work Phone: [facility] 1995 trivalent poliovirus vaccine, live, oral [facility] Work Phone: [facility] 1995 hepatitis B vaccine, pediatric or pediatric/adolescent dosage [facility] Work Phone: [facility] Payers Date Payer Category Payer Private Health Insurance [facility] MEDICAID [id number] 2022 Unknown [id number] 2022 Medicaid [employer] HMO [id number] 2022-Present [phone] [address] [place] [address] [id number] 2018 Medicaid [id number] 1995 Unknown [id number] 2.16.840.1.835157.3.579.2. 174 1995 Unknown [id number] 2.16.840.1.877578.3.579.2. 718 1995 Unknown [id number] 2.16.840.1.555588.3.579.2. 718 1995 Unknown [id number] 2.16.840.1.029741.3.579.2. 718 1995 Unknown [id number] 2.16.840.1.417057.3.579.2. 718 1995 Unknown [id number] 2.16.840.1.046334.3.579.2. 718 1995 Unknown [id number] 2.16.840.1.267362.3.579.2. 718 1995 Unknown [id number] 2.16.840.1.872429.3.579.2. 718 1995 Unknown [id number] 2.16.840.1.631393.3.579.2. 718 1995 Unknown [id number] 2.16.840.1.436607.3.579.2. 1286 1995 Unknown [id number] 2.16.840.1.375483.3.579.2. 1286 1995 Unknown [id number] 2.16.840.1.907092.3.579.2. 1286 1995 Unknown [id number] 2.16.840.1.978664.3.579.2. 1286 1995 Unknown [id number] 2.16.840.1.939694.3.579.2. 1286 1995 Unknown [id number] 2.16.840.1.285405.3.579.2. 1286 1995 Unknown [id number] 2.16.840.1.897030.3.579.2. 1286 1995 Unknown [id number] 2.16.840.1.412632.3.579.2. 173 1995 Unknown [id number] 2.16.840.1.618759.3.579.2. 173 1995 Unknown [id number] 2.16.840.1.740534.3.579.2. 173 1995 Unknown [id number] 2.16.840.1.559824.3.579.2. 173 1995 Unknown [id number] 2.16.840.1.346232.3.579.2. 173 1995 Unknown [id number] 2.16.840.1.019828.3.579.2. 173 1995 Unknown [id number] 2.16.840.1.483626.3.579.2. 173 1995 Unknown [id number] 2.16.840.1.074064.3.579.2. 173 1995 Unknown [id number] 2.16.840.1.540740.3.579.2. 173 1995 Unknown [id number] 2.16.840.1.647012.3.579.2. 173 1995 Unknown [id number] 2.16.840.1.499706.3.579.2. 173 1995 Unknown [id number] 2.16.840.1.192929.3.579.2. 173 1995 Unknown [id number] 2.16.840.1.906619.3.579.2. 173 1995 Unknown [id number] 2.16.840.1.478324.3.579.2. 1259 1995 Unknown [id number] 2.16.840.1.301935.3.579.2. 9 1995 Unknown [id number] 2.16.840.1.765710.3.579.2. 9 1995 Unknown [id number] 2.16.840.1.145557.3.579.2. 9 1995 Unknown [id number] 2.16.840.1.595743.3.579.2. 9 1995 Unknown [id number] 2.16.840.1.654194.3.579.2. 9 Self-pay Self Pay [id number] Unknown [id number] 2.16.840.1.396849.19 Unknown Kimberly GILLESPIE/SUZY [id number] Social History Date Type Detail Facility Start: 07-25-2023 End: 11-06-[address] [facility] [employer] Start: 06-21-2022 End: 11-15-2024 Tobacco smoking status COIS Smoker (finding) [facility] Start: 1995 Sex Assigned At Female F [facility] Start: 07-24-2023 Tobacco smoking stat [facility] Never smoked tobacco [facility] [employer] [facility] Start: 04-25-2023 End: 07-24-2023 Tobacco use and exposure Smokeless tobacco non-user [facility] [employer] Start: 07-25-2023 End: 02-15-2024 Alcohol intake Ex-drinker (finding) [facility] [employer] Start: 07-25-2023 End: 11-06-2024 [facility] [employer] [facility] Patient Health Questionnaire 9 item (PHQ-9) total score [Reported] [address] [facility] [employer] Start: 07-19-[address] Comment [address] [facility] [employer] Start: 1995 Sex Assigned At Not on file B ON [employer] How often to you hav e a drink containing alcohol? Never [facility] Start: 04-02-2024 End: 03-20-2025 Tobacco smoking status NHIS Smokes tobacco daily [employer] History of tobacco use Cigarette Smoker P [facility] Has the electric, ga s, oil, or water company threatened to shut off services in your home in past 12Mo No [employer] (I/We) worried wheth er (my/our) food would run out before (I/we) got money to buy more. Never true [employer] Start: 04-25-2023 [facility] Start: 01-23-2024 End: 11-06-2024 Alcoholic beverage intake Lifetime non-drinker (finding) [employer] Start: 05-03-2023 Education [facility] Start: 07-22-2024 End: 11-25-2024 Sex Female (finding) [facility] Start: 06-30-2020 Tobacco smoking stat [facility] Ex-smoker [employer] Start: 04-28-2020 End: 02-15-2024 Tobacco Comment Down to 2-3 cig/day with [employer] NEGATED: Highlighted row N [facility] Goals Date Patient Goal Desired Activity /State Personal health goal Comment on above: Formatting of this n ote might be different from the original. Evaluation of progress towards goal: progressing towards safe discharge from hospital Functional Status Date Assessment Result Facility 11-16-2024 Functional status Patient at Baseline [facility] Work Phone: 11-15-2024 Functional status Disability Sta tus Patient at Baseline [facility] Work Phone: 11-10-2024 Functional status Patient at Baseline [facility] Work Phone: 11-07-2024 Functional status Functional Sta tus Comment Independent with all ADLs and IADLs. [facility] Work Phone: 02-27-2023 Functional status Patient at Baseline [facility] Work Phone: Mental Status Date Assessment Result Facility 11-16-2024 Cognitive function Cognitive Sta tus Patient at Baseline [facility] Work Phone: 11-10-2024 Cognitive function Cognitive Sta tus Patient at Baseline [facility] Work Phone: 02-27-2023 Cognitive function Cognitive Sta tus Patient at Baseline [facility] Work Phone: Clinical Notes 04-26-2022 to 03-20-2025 Note Date & Type Note Facility 03-20-2025 History and physi richelle note Note Date/Time March 20, 2025 6:12am [facility] [address] [place] [address] [employer] History & Physical Signed Patient: Barbra Claros MR#: [id number] : 1995 Acct:[id number] Age/Sex: 29 / F Adm Date: 5 Loc: Room: [address] [place] [address] Type: ADM IN Attending Dr: Michael Gurrola MD Copies to: NON STAFF MICHAEL GURROLA MD~ Date of Service: 03/20/2025 TOWEL HEMMER - HPI History of Present Illness Chief Complaint: Pain HPI: Patient is a 29-year-old female well-known to me. She suffers chronic intermittent right lower quadrant pain for more than the last year. She has hada hysterectomy because of this pain and yet it did not improve. Unfortunately that surgery was complicated by a pelvic abscess requiring a 2-week hospital stay in [place]. Sometime following that she presented to another hospital with pain and had an exploratory laparotomy. She reports to me that the findings at that time revealed a right ovary encased in adhesions but that the ovary was otherwise normal. She has been in and out of various emergency room's with multiple CAT scans that apparently show a hemorrhagic cyst of the right ovary. I have seen the patient in my office multiple times and have not been able to elicit a source for her pain. She reports that in the last several months she has had relief of her pain but then the pain recurs intermittently. This particular episode of pain started 3 days ago. She describes it as severe and localizing to the left right lower quadrant. She has had some nausea with it. She denies any fever. She denies any urinary or bowel complaints. She does have an appetite. She reported to [place] [facility] where CAT scan and ultrasound showed a 4 cm cyst on the right ovary that has a hemorrhagic appearance to it. [facility] however no anesthesiologist was available so it was requested that the patient be transferred. As the patient is my patient and I excepted her care. Overnight the patient has had no episodes. She has had restful sleep and has not required any pain medications through the night. [facility] Medical History (Updated 03/20/25 @ 06:10 by Michael Gurrola MD) Contact with and (suspected) exposure to covid-19 Headache Dysphagia Crohn's disease Hx of blood transfusion reaction Ovarian cyst Stomach pain Ovarian cyst removal of cyst in 09/20/2019 Depression Anxiety Hemorrhagic cyst of right ovary Kidney stones with last Surgical History History of partial hysterectomy Family History Brother Heart murmur Legacy FamHx Relation: Brother(s) Other Hypertension No significant family history Social History Smoking Status: Current every day smoker Tobacco Type: cigarettes Substance Use Type: Former User Substance Abuse Comment: Marijuana use - current; 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) Social History Comments: mom, , 4 kids Allergies & Medications Medications and Allergies Allergies chlorpheniramine (From Triaminic Cold and Cough) Allergy (Verified 02/24/25 10:12) Swelling of Lip/Tongue/Throat dextromethorphan (From Triaminic Cold and Cough) Allergy (Verified 02/24/25 10:12) Swelling of Lip/Tongue/Throat pseudoephedrine (From Triaminic Cold and Cough) Allergy (Verified 02/24/25 10:12) Swelling of Lip/Tongue/Throat triaminic Allergy (Unknown, Uncoded 01/08/24 12:35) Anaphylaxis Home Medications venlafaxine 150 mg capsule,extended release 24 hr 150 mg PO DAILY #15 caps 12/06/24 [Rx Confirmed 03/19/25] venlafaxine 37.5 mg capsule,extended release 24 hr 37.5 mg PO DAILY #15 caps 12/06/24 [Rx Confirmed 03/19/25] buspirone 15 mg tablet 15 mg PO TID 01/22/25 [History Confirmed 03/19/25] trazodone 150 mg tablet 150 mg PO HS 01/22/25 [History Confirmed 03/19/25] cariprazine 4.5 mg capsule (Vraylar) 4.5 mg PO DAILY #30 caps 01/24/25 [Rx Confirmed 03/19/25] hydroxyzine pamoate 50 mg capsule 50 mg PO TID PRN anxiety 02/08/25 [History Confirmed 03/19/25] amoxicillin 500 mg capsule 500 mg PO BID 10 days #20 caps 02/24/25 [Rx Confirmed 03/19/25] oxcarbazepine 300 mg tablet 450 mg PO DAILY 02/24/25 [History Confirmed 03/19/25] Active Medications Acetaminophen (Acetaminophen 500 Mg Tablet) 1,000 mg PO Q6H PRN PRN Reason: Fever or Pain Stop: 03/20/26 00:59 Buspirone HCl (Buspirone 15 Mg Tablet) 15 mg PO TID PENDING SALE TO [facility] Stop: 03/19/26 21:59 Last Admin: 03/19/25 23:05 Dose: 15 mg Cariprazine (Cariprazine *Nf* 1.5 Mg Capsule) 4.5 mg PO DAILY PENDING SALE TO [facility] Stop: 03/20/26 08:59 Hydromorphone HCl (Hydromorphone 2 Mg Tablet) 2 mg PO Q4H PRN PRN Reason: Breakthrough Pain Hydroxyzine Pamoate (Hydroxyzine Pamoate 50 Mg Capsule) 50 mg PO TID PRN PRN Reason: Anxiety Stop: 03/19/26 22:46 Last Admin: 03/19/25 23:04 Dose: 50 mg Sodium Chloride (0.45% Sodium Chloride 1,000 Ml) 1,000 mls @ 100 mls/hr IV .Q10H YEN Stop: 03/19/26 22:14 Last Infusion: 03/19/25 22:40 Dose: 0 mls/hr Ibuprofen (Ibuprofen 600 Mg Tablet) 600 mg PO Q6HR YEN Stop: 03/19/26 21:59 Last Admin: 03/19/25 22:34 Dose: 600 mg Ondansetron HCl (Ondansetron 4 Mg/2 Ml Vial) 4 mg IV-PUSH Q6H PRN PRN Reason: Nausea And Vomiting Stop: 03/19/26 22:01 Last Admin: 03/19/25 22:34 Dose: 4 mg Oxcarbazepine (Oxcarbazepine 150 Mg Tablet) 450 mg PO DAILY PENDING SALE TO [facility] Stop: 03/20/26 08:59 Trazodone HCl (Trazodone 150 Mg Tablet) 150 mg PO HS YEN Stop: 03/19/26 21:59 Last Admin: 03/19/25 23:05 Dose: 150 mg Venlafaxine HCl (Venlafaxine Er 37.5 Mg Cap.Er.24h) 37.5 mg PO DAILY YEN Stop: 03/20/26 08:59 Venlafaxine HCl (Venlafaxine Er 150 Mg Cap.Er.24h) 150 mg PO DAILY YEN Stop: 03/20/26 08:59 TOWEL HEMMER - Exam Physical Exam Vital signs: Resp 14 03/20/25 04:33 O2 Del Method Room Air 03/20/25 04:33 Constitutional Constitutional: no acute distress Comments: Later in the room the patient was sleeping comfortably. She did awaken to speakwith me Routine HEENT Exam Head: Present normocephalic and atraumatic Routine Respiratory Exam Respiratory: Absent respiratory distress Routine Abdominal Exam Abdominal: Present soft and normoactive bowel sounds; Absent distended, rebound or guarding Comments: Abdomen is flat and soft with normal bowel sounds. When I palpate the abdomen with the stethoscope she does not show a pain response. When I palpate the abdomen without the stethoscope she winces TOWEL HEMMER - A/P (1) Chronic right lower quadrant pain: Plan: Patient is well-known to me. This pain has been persistent despite multiple surgical procedures. 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 At this point she does not have an acute abdomen. I believe that her ovarian cyst is a functional cyst and I expect it to resolve. I have discussed this with the patient. Given that she does not have an acute abdomen I am and I discharged her home with pain management. I will see her in the office in 2 weeks to have her perform a repeat ultrasound to assess for resolution of the cyst and evaluate her pain at that time. (2) Ovarian cyst: Plan As above Documented By: MICHAEL GURROLA MD 03/20/25602 Signed By: <Electronically signed by MD MICHAEL GURROLA> 03/20/25611 [facility] Work Phone: 1(488) 797-541210-02-2025 History and physical [place] [id number] [employer] History & Physical Signed Patient: Barbra Claros MR#: [id number] : 1995 Acct:[id number] Age/Sex: 29 / F Adm Date: 5 Loc: Room: [address] [place] [address] Type: ADM IN Attending Dr: Michael Gurrola MD Copies to: NON STAFF MICHAEL GURROLA MD~ Date of Service: 03/20/2025 TOWEL HEMMER - HPI History of Present Illness Chief Complaint: Pain HPI: Patient is a 29-year-old female well-known to me. She suffers chronic intermittent right lower quadrant pain for more than the last year. She has hada hysterectomy because of this pain and yet it didnot improve. Unfortunately that surgery was complicated by a pelvic abscess requiring a 2-week hospital stay in [place]. Sometime following that she presented to another hospital with pain and had an exploratory laparotomy. She reports to me that the findings at that time revealed a right ovary encased in adhesions but that the ovary was otherwise normal. She has been in and out of various emergency room's with multiple CAT scans that apparently show a hemorrhagic cyst of the right ovary. I haveseen the patient in my office multiple times and have not been able to elicit a source for her pain. She reports that in the last several months she has had relief of her pain but then the pain recursintermittently. This particular episode of pain started 3 days ago. She describes it as severe and localizing to the left right lower quadrant. She has had some nausea with it. She denies any fever. She denies any urinary or bowel complaints. She does have an appetite. She reported to [place] ER where CAT scan and ultrasound showed a 4 cm cyst on the right ovary that has a hemorrhagic appearanceto it. [facility] however no anesthesiologist was available so it was requested that the patient be transferred. As the patient is my patient and I excepted her care. Overnight the patient has had no episodes. She has had restful sleep and has not required any pain medications through the night. [facility] Medical History (Updated 03/20/25 @ 06:10 by Michael Gurrola MD) Contact with and (suspected) exposure to covid-19 Headache Dysphagia Crohn's disease Hx of blood transfusion reaction Ovarian cyst Stomach pain Ovarian cyst removal of cyst in 09/20/2019 Depression Anxiety Hemorrhagic cyst of right ovary Kidney stones with last Surgical History History of partial hysterectomy Family History Brother Heart murmur Legacy FamHx Relation: Brother(s) Other Hypertension No significant family history Social History Smoking Status: Current every day smoker Tobacco Type: cigarettes Substance Use Type: Former User Substance Abuse Comment: Marijuana use - current; 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) Social History Comments: mom, , 4 kids Allergies & Medications Medications and Allergies Allergies chlorpheniramine (From Triaminic Cold and Cough) Allergy (Verified 02/24/25 10:12) Swelling of Lip/Tongue/Throat dextromethorphan (From Triaminic Cold and Cough) Allergy (Verified 02/24/25 10:12) Swelling of Lip/Tongue/Throat pseudoephedrine (From Triaminic Cold and Cough) Allergy (Verified 02/24/25 10:12) Swelling of Lip/Tongue/Throat triaminic Allergy (Unknown, Uncoded 01/08/24 12:35) Anaphylaxis Home Medications venlafaxine 150 mg capsule,extended release 24 hr 150 mg PO DAILY #15 caps 12/06/24 [Rx Confirmed 03/19/25] venlafaxine 37.5 mg capsule,extended release 24 hr 37.5 mg PO DAILY #15 caps 12/06/24 [Rx [id number]/01/25] buspirone 15 mg tablet 15 mg PO TID 01/22/25 [History Confirmed 03/19/25] trazodone 150 mg tablet 150 mg PO HS 01/22/25 [History Confirmed 03/19/25] cariprazine 4.5 mg capsule (Vraylar) 4.5 mg PO DAILY #30 caps 01/24/25 [Rx Confirmed 03/19/25] hydroxyzine pamoate 50 mg capsule 50 mg PO TID PRN anxiety 02/08/25 [History Confirmed 03/19/25] amoxicillin 500 mg capsule 500 mg PO BID 10 days #20 caps 02/24/25 [Rx Confirmed 03/19/25] oxcarbazepine 300 mg tablet 450 mg PO DAILY 02/24/25 [History Confirmed 03/19/25] Active Medications Acetaminophen (Acetaminophen 500 Mg Tablet) 1,000 mg PO Q6H PRN PRN Reason: Fever or Pain Stop: 03/20/26 00:59 Buspirone HCl (Buspirone 15 Mg Tablet) 15 mg PO TID YEN Stop: 03/19/26 21:59 Last Admin: 03/19/25 23:05 Dose: 15 mg Cariprazine (Cariprazine *Nf* 1.5 Mg Capsule) 4.5 mg PO DAILY YEN Stop: 03/20/26 08:59 Hydromorphone HCl (Hydromorphone 2 Mg Tablet) 2 mg PO Q4H PRN PRN Reason: Breakthrough Pain Hydroxyzine Pamoate (Hydroxyzine Pamoate 50 Mg Capsule) 50 mg PO TID PRN PRN Reason: Anxiety Stop: 03/19/26 22:46 Last Admin: 03/19/25 23:04 Dose: 50 mg Sodium Chloride (0.45% Sodium Chloride 1,000 Ml) 1,000 mls @ 100 mls/hr IV .Q10H YEN Stop: 03/19/26 22:14 Last Infusion: 03/19/25 22:40 Dose: 0 mls/hr Ibuprofen (Ibuprofen 600 Mg Tablet) 600 mg PO Q6HR YEN Stop: 03/19/26 21:59 Last Admin: 03/19/25 22:34 Dose: 600 mg Ondansetron HCl (Ondansetron 4 Mg/2 Ml Vial) 4 mg IV-PUSH Q6H PRN PRN Reason: Nausea And Vomiting Stop: 03/19/26 22:01 Last Admin: 03/19/25 22:34 Dose: 4 mg Oxcarbazepine (Oxcarbazepine 150 Mg Tablet) 450 mg PO DAILY PENDING SALE TO [facility] Stop: 03/20/26 08:59 Trazodone HCl (Trazodone 150 Mg Tablet) 150 mg PO HS PENDING SALE TO [facility] Stop: 03/19/26 21:59 Last Admin: 03/19/25 23:05 Dose: 150 mg Venlafaxine HCl (Venlafaxine Er 37.5 Mg Cap.Er.24h) 37.5 mg PO DAILY YEN Stop: 03/20/26 08:59 Venlafaxine HCl (Venlafaxine Er 150 Mg Cap.Er.24h) 150 mg PO DAILY YEN Stop: 03/20/26 08:59 TOWEL HEMMER - Exam Physical Exam Vital signs: Resp 14 03/20/25 04:33 O2 Del Method Room Air 03/20/25 04:33 Constitutional Constitutional: no acute distress Comments: Later in the room the patient was sleeping comfortably. She did awaken to speakwith me Routine HEENT Exam Head: Present normocephalic and atraumatic Routine Respiratory Exam Respiratory: Absent respiratory distress Routine Abdominal Exam Abdominal: Present soft and normoactive bowel sounds; Absent distended, rebound or guarding Comments: Abdomen is flat and soft with normal bowel sounds. When I palpate the abdomen with the stethoscope she does not show a pain response. When I palpate the abdomen without the stethoscope she winces TOWEL HEMMER - A/P (1) Chronic right lower quadrant pain: Plan: Patient is well-known to me. This pain has been persistent despite multiple surgical procedures. 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 At this point she does not have an acute abdomen. I believe that her ovarian cyst is a functional cyst and I expect it to resolve. I have discussed this with the patient. Given that she does not have an acute abdomen I am and I discharged her home with pain management. I will see her in the office in 2 weeks to have her perform a repeat ultrasound to assess for resolution of the cyst and evaluate her pain at that time. (2) Ovarian cyst: Plan As above Documented By: MICHAEL GURROLA MD 03/20/25602 Signed By: 03/20/25611 [facility]08-08-2025 Hospital Discharge instructions Additional Instructions Important Contact Information You can call [facility] Inpatient Behavioral Health at [phone] any time day or night if you have emergent questions or question regarding discharge instructions. If at any time you are feeling an increase in your psychiatric symptoms, call your physician or behavioral healthcare provider. If any time you have thoughts of harming yourself or others contact one of the following: Call 8-8 (available 09/01) Crisis Text Line (available 09/01) text 4HOPE to [phone] [facility] Hope Line (available 8 a.m. Midnight) call [phone] ([phone]) [facility] Work Phone: 1(147) 817-769107-16-2025 Hospital Discharge instructions Additional Instructions Important Contact Information You can call [facility] Inpatient Behavioral Health at [phone] any time day or night if you have emergent questions or question regarding discharge instructions. If at any time you are feeling an increase in your psychiatric symptoms, call your physician or behavioral healthcare provider. If any time you have thoughts of harming yourself or others contact one of the following: Call (available 09/01) Crisis Text Line (available 09/01) text 4HOPE to [phone] [facility] Hope Line (available 8 a.m. Midnight) call [phone] ([phone]) [facility] Work Phone: 1(794) 814-422307-14-2025 Evaluation note* Diagnosis Onset Date Resolution Status Admit Date Pain in tooth acute December 29, 2024 11:05pm Depression with suicidal ideation resolved December 29, 2024 11:05pm Suicidal ideation resolved December 292024 11:05pm Major depressive disorder, recurrent acute January 22, 2025 4:22pm Suicidal ideation resolved January 22, 2025 4:22pm Abdominal pain inactive January 2:02pm Bacterial pharyngitis acute Sep 2024 9:56am UTI (urinary tract infection) acute February 24, 2 025 9:56am Viral URI acute February 24, 2025 9:56am Chronic right lower quadrant pain acute March 19 9:59pm Ovarian cyst acute March 19, 2025 9:59pm [facility] Work Phone: 1([phone] 420-761706-18-2025 Evaluation note* Diagnosis Onset Date Resolution Status Admit Date Deliberate self-cutting acute J une 2024 10:00pm Homicidal ideation acute November 172024 10:00pm Depression with suicidal ideation resolved December 03, 2024 10:00pm Pain in tooth acute December 29, 2024 11:05pm Depression with suicidal ideation resolved December 29, 2024 11:05pm Suicidal ideation resolved December 292024 11:05pm Major depressive disorder, recurrent acute January 22, 2025 4:22pm Suicidal ideation resolved January 22, 2025 4:22pm Abdominal pain inactive January 2:02pm [facility] Work Phone: 1(947) 921-374105-31-[address] [address] Discharge Summary Signed Patient: Barbra Claros MR#: [id number] : 1995 Acct:[id number] Age/Sex: 29 / F Adm Date: 5 Loc: 1S Room: [address] [place] [address]: Dashawn Moreno MD Copies to: [...] noted that she got out of the [facility] 3 days ago. She noted [...] dose of Effexor was increased. She tolerated themedications without any problems and did not report any side effects. She had rapid resolution of her symptoms. She later stated that she only came to the hospital because of her sobriety. She was concerned that she was going to relapse or end up in correction. She did not exhibit any behavior concerningfor suicidality during her hospital course. Did not [...] 15 Days Qty: 15 1RF Follow Up: [facility] [Outside] (was referred at last admission) [facility] [place] [Outside] (for any urgent medical needs) Exam Physical Exam Vital Signs: Temp Pulse Resp BP Pulse Ox O2 Del Method 97.7 F 102 H 15 122/87 99 Room Air 11/16/24 07:30 11/16/24 07:30 11/16/24 07:30 11/16/24 07:30 11/16/24 07:30 11/16/24 09:00 Documented By: Dashawn Moreno MD 11/16/24 1247 Signed By: 11/16/[address] [facility]05-30-2025 History and physical note Author Dashawn Moreno [facility] Note Date/Time November 15, 2024 11:57 am [facility] [address] [place] [address] Psychiatry H&P Signed Patient: Barbra Claros MR#: [id number] : 1995 Acct:[id number] Age/Sex: 29 / F Adm Date: 5 Loc: 1S Room: 2H5683-8 Type: ADM IN Attending Dr: Dashawn Moreno [...] noted that she got out of the [facility] 3 days ago. She noted [...] Appearance Clear Urine pH 7.0 Ur Specific [place] 1.031 H Urine Protein 20 H Urine [...] <Electronically signed by DO ARABELLA Munoz> 11/15/24 1055 [facility] Work Phone: 1(775) 215-468405-30-2025 [place] [address] Psychiatry H&P Signed Patient: Barbra Claros MR#: [id number] : 1995 Acct:[id number] Age/Sex: 29 / F Adm Date: 5 Loc: 1S Room: [address] [place] [address] Type: ADM IN Attending Dr: Dashawn Moreno [...] noted that she got out of the [facility] 3 days ago. She noted [...] List clean-up per request of Phys. [facility] of cyst in 09/20/2019 Problem List clean-up per request of Phys. [facility] Depression was on medication, stopped taking medication years ago Problem List clean-up per request of Phys. EHR Cmte Anxiety Problem List clean-up per request of Phys. EHR Cmte Hemorrhagic cyst of right ovary Problem List clean-up per request of Phys. [facility] Kidney stones with last Problem List [...] Appearance Clear Urine pH 7.0 Ur Specific [place] 1.031 H Urine Protein 20 H Urine [...] 1049 Signed By: 11/15/24 1157 11/15/[address] [facility]05-30-2025 Evaluation note* Diagnosis Onset Date Resolution Status Admit Date Major depressive disorder resolved November 14, 2024 11:39pm Suicidal ideation resolved October 11:39pm Deliberate self-cutting acute J 2024 10:00pm Homicidal ideation acute November 172024 10:00pm Depression with suicidal ideation resolved December 03, 2024 10:00pm Pain in tooth acute December 29, 2024 11:05pm Depression with suicidal ideation resolved December 29, 2024 11:05pm Suicidal ideation resolved December 292024 11:05pm Major depressive disorder, recurrent acute January 22, 2025 4:22pm Suicidal ideation resolved January 22, 2025 4:22pm Abdominal pain inactive January 2:02pm [facility] Work Phone: 1(771) 986-599005-25-2025 [id number] Discharge Summary Signed Patient: Barbra Claros MR#: [id number] : 1995 Acct:[id number] Age/Sex: 29 / F Adm Date: 5 Loc: Room: [address] [place] [address]: Kit Gutierrez MD Copies to: [...] She was at an appointment with her ob-heading machine operator provider and he asked her to [...] 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 She was agreeable to treatment and hopes [...] Specifically last Monday, she was sent to [place] [facility] due to panic attacks at which time they suggested that she voluntarily admit herself to 1 S., but said she was talked out of it by her mother. Has been wanting to increase her venlafaxine dose recently. 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 Gurrola. This morning she denies SI, [...] or stop treatment, but to call [employer], 911 or come to the nearest emergency [...] QAM Patient Comments: with breakfast Follow Up: [facility] [Outside] (new referral) [facility] [place] [Outside] (for any urgent medical needs) Exam Physical Exam Vital Signs: Temp Pulse Resp BP Pulse Ox O2 Del Method 98.2 F 95 16 119/72 97 Room Air 11/09/24 19:59 11/09/24 19:59 11/09/24 19:59 11/09/24 19:59 11/09/24 19:59 11/09/24 21:00 Documented By: Kit Gutierrez MD 5 0730 Signed By: 11/10/[address] [facility]05-24-2025 Progress note Author Kit fox [facility] Note Date/Time November 09, 2024 7:31a m [facility] [address] [place] [address] Psychiatry Progress Note Signed Patient: Barbra Claros MR#: [id number] : 1995 Acct:[id number] Age/Sex: 29 / F Adm Date: 5 Loc: Room: [address] [place] [address] Type : ADM IN Attending Dr: Kit [...] signed by Kit Gutierrez MD> 11/09/24 0731 [facility] Work Phone: 1(692) 131-854105-24-2025 [place] [address] Psychiatry Progress Note Signed Patient: Barbra Claros MR#: [id number] : 1995 Acct:[id number] Age/Sex: 29 / F Adm Date: 5 Loc: Room: [address] [place] [address] Type : ADM IN Attending Dr: Kit [...] MD 5 0729 Signed By: 11/09/[address] [facility]05-23-2025 Progress note Author Kit fox [facility] Note Date/Time November 08, 2024 1:42p m [facility] [address] [place] [address] Psychiatry Progress Note Signed Patient: Barbra Claros MR#: [id number] : 1995 Acct:[id number] Age/Sex: 29 / F Adm Date: 5 Loc: 1S Room: [address] [place] [address] Type : ADM IN Attending Dr: Kit [...] <Electronically signed by Kit Gutierrez MD> 11/08/24 [facility] Work Phone: 1(120) 676-284305-23-2025 [place] [address] Psychiatry Progress Note Signed Patient: Barbra Claros MR#: [id number] : 1995 Acct:[id number] Age/Sex: 29 / F Adm Date: 5 Loc: Room: [address] [place] [address] Type : ADM IN Attending Dr: Kit [...] Gutierrez MD 5 1016 Signed By: 11/08/24 [facility]05-22-2025 History and physical note Author Kit fox 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 She was agreeable to treatment and hopes [...] Specifically last Monday, she was sent to [place] [facility] due to panic attacks at which time they suggested that she voluntarily admit herself to 1 S[address] but said she was talked out of it by her mother. Has been wanting to increase her venlafaxine dose recently. 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 Gurrola. This morning she denies SI, HI, delusions. 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 [facility] Ovarian cyst removal of cyst in 09/20/2019 Problem List clean-up per request of Phys. [facility] Depression was on medication, stopped taking medication years ago Problem List clean-up per request of Phys. EHR Cmte Anxiety Problem List clean-up per request of Phys. [facility] Hemorrhagic cyst of right ovary Problem List clean-up per request of Phys. EHR [facility] Kidney stones with last Problem List clean-up per request of Phys. EHR Cmte No pertinent past medical history Problem List clean-up per request of Phys. EHR [facility] Surgical History History of partial hysterectomy [...] Appearance Clear Urine pH 5.5 Ur Specific [place] 1.015 Urine Protein Negative Urine Glucose (UA) [...] signed by Kit Gutierrez MD> 11/07/24 1312 [facility] Work Phone: 1(757) 867-694905-22-2025 [place] [address] Psychiatry H&P Signed Patient: Barbra Claros MR#: [id number] : 1995 Acct:[id number] Age/Sex: 29 / F Adm Date: 5 Loc: Room: [address] [place] [address] Type: ADM IN Attending Dr: Kit Gutierrez [...] She was at an appointment with her ob-heading machine operator provider and he asked her to [...] 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 She was agreeable to treatment and hopes [...] Specifically last Monday, she was sent to [place] [facility] due to panic attacks at which time they suggested that she voluntarily admit herself to 1 S[facility] but said she was talked out of it by her mother. Has been wanting to increase her venlafaxine dose recently. 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 Gurrola. This morning she denies SI, HI, delusions. 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 [facility] Ovarian cyst removal of cyst in 09/20/2019 Problem List clean-up per request of Phys. EHR [facility] Depression was on medication, stopped taking medication years ago Problem List clean-up per request of Phys. EHR Cmte Anxiety Problem List clean-up per request of Phys. [facility] Hemorrhagic cyst of right ovary Problem [...] Appearance Clear Urine pH 5.5 Ur Specific [place] 1.015 Urine Protein Negative Urine Glucose (UA) [...] MD 5 1121 Signed By: 11/07/[address] [facility]05-22-2025 Evaluation note* Diagnosis Onset Date Resolution Status Admit Date Major depressive disorder acute November 07, 2024 1:28am Suicidal ideation acute October 1:28am [facility] Work Phone: 1([phone]) 985-541905-22-2025 Evaluation note* Diagnosis Onset Date Resolution Status Admit Date Major depressive disorder acute November 07, 2024 1:28am Suicidal ideation acute October 1:28am Major depressive disorder acute November 14, 2024 11:39pm Suicidal ideation acute October 11:39pm [facility] Work Phone: 1(810) 924-546805-22-2025 Evaluation note* Diagnosis Onset Date Resolution Status Admit Date Major depressive disorder resolved November 07, 2024 1:28am Suicidal ideation resolved October 1:28am Major depressive disorder resolved November 14, 2024 11:39pm Suicidal ideation resolved October 11:39pm [facility] Work Phone: 1(494) 395-813705-22-2025 Evaluation note* Diagnosis Onset Date Resolution Status Admit Date Major depressive disorder resolved November 07, 2024 1:28am Suicidal ideation resolved October 1:28am Major depressive disorder resolved November 14, 2024 11:39pm Suicidal ideation resolved October 11:39pm Deliberate self-cutting acute J une 2024 10:00pm Depression with suicidal ideation acute December 03, 2024 10:00pm Homicidal ideation acute November 172024 10:00pm Pain in tooth acute December 29, 2024 11:05pm Suicidal ideation acute December 292024 11:05pm [facility] Work Phone: 1([phone]) 880-839005-22-2025 Evaluation note* Diagnosis Onset Date Resolution Status Admit Date Major depressive disorder resolved November 07, 2024 1:28am Suicidal ideation resolved October 1:28am Major depressive disorder resolved November 14, 2024 11:39pm Suicidal ideation resolved October 11:39pm Deliberate self-cutting acute J une 2024 10:00pm Depression with suicidal ideation acute December 03, 2024 10:00pm Homicidal ideation acute November 172024 10:00pm Depression with suicidal ideation acute December 29, 2024 11:05pm Pain in tooth acute December 29, 2024 11:05pm Suicidal ideation acute December 292024 11:05pm [facility] Work Phone: 1(995) 389-513005-22-2025 Evaluation note* Diagnosis Onset Date Resolution Status Admit Date Major depressive disorder resolved November 07, 2024 1:28am Suicidal ideation resolved October 1:28am Major depressive disorder resolved November 14, 2024 11:39pm Suicidal ideation resolved October 11:39pm Deliberate self-cutting acute J une 2024 10:00pm Homicidal ideation acute November 172024 10:00pm Depression with suicidal ideation resolved December 03, 2024 10:00pm Pain in tooth acute December 29, 2024 11:05pm Depression with suicidal ideation resolved December 29, 2024 11:05pm Suicidal ideation resolved December 292024 11:05pm [facility] Work Phone: [phone] Evaluation note* Diagnosis Onset Date Resolution Status Admit Date Major depressive disorder resolved November 07, 2024 1:28am Suicidal ideation resolved October 1:28am Major depressive disorder resolved November 14, 2024 11:39pm Suicidal ideation resolved October 11:39pm Deliberate self-cutting acute J une 2024 10:00pm Homicidal ideation acute November 172024 10:00pm Depression with suicidal ideation resolved December 03, 2024 10:00pm Pain in tooth acute December 29, 2024 11:05pm Depression with suicidal ideation resolved December 29, 2024 11:05pm Suicidal ideation resolved December 292024 11:05pm Major depressive disorder, recurrent acute January 22, 2025 4:22pm Suicidal ideation acute January 22, 2025 4:22pm [facility] Work Phone: [phone] Evaluation note* Diagnosis Onset Date Resolution Status Admit Date Major depressive disorder resolved November 07, 2024 1:28am Suicidal ideation resolved October 1:28am Major depressive disorder resolved November 14, 2024 11:39pm Suicidal ideation resolved October 11:39pm Deliberate self-cutting acute J une 2024 10:00pm Homicidal ideation acute November 172024 10:00pm Depression with suicidal ideation resolved December 03, 2024 10:00pm Pain in tooth acute December 29, 2024 11:05pm Depression with suicidal ideation resolved December 29, 2024 11:05pm Suicidal ideation resolved December 292024 11:05pm Major depressive disorder, recurrent acute January 22, 2025 4:22pm Suicidal ideation resolved January 22, 2025 4:22pm Abdominal pain inactive January 2:02pm [facility] Work Phone: 1(711) 992-873705-21-2025 History of Present illness Narrative* Michael Gurrola [...] Review Audit Reviewed by Fe Silveira MA (Senior Director [employer]) on 11/06/24 at 1553 Medication Order Taking? Sig Documenting Provider Last Dose Status hydrOXYzine HCl (Atarax) 50 MG tablet [id number] Yes TAKE 1 TABLET BY MOUTH THREE TIMES DAILY NEEDED FOR ITCHING Michael Gurrola MD Active venlafaxine XR (Effexor XR) 75 MG 24 hr capsule [id number] Take 75 mg by mouth in the morning. Take with meals. Michael Gurrola MD Active Allergies Allergen Reactions Chlorpheniramine Anaphylaxis and Other Dextromethorphan Other Dm-Apap-Cpm Angioedema and Swelling Throat Swells Pseudoephedrine Other Past Medical History: Diagnosis Date ADHD (attention deficit hyperactivity disorder) ([facility]) Anxiety History of being hospitalized blood transfusion, bronchitis, pneumonia Ovarian cyst PTSD (post-traumatic stress disorder) (CMS/HCC) Past Surgical History: Procedure Laterality Date COSMETIC [...] have encouraged the pt to go to [facility] and request to speak with a mental health counselor. I suspect she needs to be admitted. She will need high school social studies teacher to assist with childcare. She has assured me she will go No orders of the defined types were placed in this encounter. [facility] History of Present illness Narrative* Michael Gurrola MD - 09/17/2024 11:45 AM EDT Pt had 4days of relief following last injection. By Monday morning the pain returned with intensityand she went to [place] ER. 12cc lidocaine again infiltrated into inferior extent of scar. Nevaeh well ICD-10-CM 1. Abdominal pain in female R10.9 2. Pelvic pain in female R10.[address] Reyes, pain specialist, to eval for potential nerve block [facility] History of Present illness Narrative* Michael Gurrola [...] Review Audit Reviewed by Fe Silveira MA (Senior Director [employer]) on 09/12/24 at 1302 Medication Order Taking? Sig Documenting Provider Last Dose Status venlafaxine XR (Effexor XR) 75 MG 24 hr capsule [id number] Take 75 mg by mouth in the morning. Take with meals. Michael Gurrola MD Active Allergies Allergen Reactions Chlorpheniramine Anaphylaxis and Other Dextromethorphan Other Dm-Apap-Cpm Angioedema and Swelling Throat Swells Pseudoephedrine Other Past Medical History: Diagnosis Date ADHD (attention deficit hyperactivity disorder) ([facility]) Anxiety History of being hospitalized blood transfusion, bronchitis, pneumonia Ovarian cyst PTSD (post-traumatic stress disorder) ([facility]) Past Surgical History: Procedure Laterality Date [...] placed in this encounter. [id number] History of Present illness Narrative* Michael Gurrola [...] of a pelvicabscess. She was transferred to [facility]. She underwent CT guided drainage. After 2 weeks sh recovered, but her RLQ pain continues. In 04/11, she was seen at [facility] and CT showed air in [...] into the back She has been to [place] [facility] twice in last week. Sono shows [...] Review Audit Reviewed by Fe Silveira MA (Senior Director [employer]) on 07/10/24 at 1424 Medication Order Taking? Sig Documenting Provider Last Dose Status Discontinued 07/10/24 1424 Discontinued 07/10/24 1424 venlafaxine XR (Effexor XR) 75 MG 24 hr capsule [id number] Take 75 mg by mouth in the morning. Take with meals. Michael Gurrola MD Active Allergies Allergen Reactions Chlorpheniramine Anaphylaxis and Other Dextromethorphan Other Dm-Apap-Cpm Angioedema and Swelling Throat Swells Pseudoephedrine Other Past Medical History: Diagnosis Date ADHD (attention deficit hyperactivity disorder) (CMS/HCC) Anxiety History of being hospitalized blood transfusion, bronchitis, pneumonia Ovarian cyst PTSD (post-traumatic stress disorder) ([facility]) Past Surgical History: Procedure Laterality Date [...] placed in this encounter. documented in this encounterNOSt. Louis Children's [id number] Telephone encounter Note* Telephone Encounter - Irena Damon - 07/30/2024 1:22 PM EST Pt called and needs to reschedule her US and OV with BJP, she currently has RSV and the Flu in her house, she now has her records, best call back number is [phone] [facility] [id number] Miscellaneous Notes* Telephone Encounter - Irena Damon - 07/30/2024 1:22 PM EST Pt called and needs to reschedule her US and OV with BJP, she currently has RSV and the Flu in her house, she now has her records, best call back number is [phone] documented in this encounterNOKS [id number] History of Present illness Narrative* Michael Gurrola [...] of a pelvicabscess. She was transferred to [facility]. She underwent CT guided drainage. After 2 weeks sh recovered, but her RLQ pain continues. In 04/11, she was seen at [facility] and CT showed air in [...] [address] at [facility] shows a 6cm complex/septated right ovary [...] Review Audit Reviewed by Fe Silveira MA (Senior Director Insight) on 07/10/24 at 1424 Medication Order Taking? Sig Documenting Provider Last Dose Status Discontinued 07/10/24 1424 Discontinued 07/10/24 1424 venlafaxine XR (Effexor XR) 75 MG 24 hr capsule [id number] Take 75 mg by mouth in the morning. Take with meals. Michael Gurrola MD Active Allergies Allergen Reactions Chlorpheniramine Anaphylaxis and Other Dextromethorphan Other Dm-Apap-Cpm Angioedema and Swelling Throat Swells Pseudoephedrine Other Past Medical History: Diagnosis Date ADHD (attention deficit hyperactivity disorder) ([facility]) Anxiety History of being hospitalized blood transfusion, bronchitis, pneumonia Ovarian cyst PTSD (post-traumatic stress disorder) ([facility]) Past Surgical History: Procedure Laterality Date [...] placed in this encounter. documented in this encounterCenterpoint Medical [id number] Hospital Discharge instructions* Discharge Instructions* Corrine Guerra RN - 04/16/2024 11:06 AM EDT Report the following signs or any questions regarding your physical condition to your surgeon immediately: Dr. Soriano @ [phone] Excessive swelling of, or around the wound [...] most local grocery stores, pharmacies, and chain super-stores. If you have any questions about your diet or nutrition, call the hospital and ask for the dietitian. General diet as tolerated * Attachments The following attachments cannot be sent through Care Everywhere. * Appendectomy: Post-op (Salvadorean) * Surgical Site Infections: Prevention: General Info (Salvadorean) documented in this encounterBon [facility] History of Present illness Narrative* Julia Causey [...] loss Fluid Accumulation: No significant fluid accumulation Accounts Receivable Bookkeeper Strength: Not Performed Nutrition Assessment: Continued increased [...] Measures: Height: 160 cm (5' 3 ) Teague Body Weight (IBW): 115 lbs (52 kg) [...] Used for Energy Requirements: Current Energy (kcal/day): 9132-2163 (20-23.) Weight Used for Protein Requirements: Teague Protein (g/day): 68-78 (1.3-1.5) Method Used for Fluid Requirements: 1 ml/kcal Fluid (ml/day): 1700 Hematology: Recent Labs 04/14/24 0600 04/15/24 0550 WBC 4.6 4.2 HGB 8.8* 9.3* HCT 27.5* 28.5* Chemistry: Recent Labs 04/14/24 0600 04/15/24 0550 NA 139 138 K 3.4* 3.8 CL 104 104 CO2 GLUCOSE 93 89 BUN 4* 5* CREATININE [...] Nutrition Supplement JULIA CAUSEY RD, LD Contact: [phone] * Ivy Schmid RN - 04/15/2024 10:15 [...] Diagnostic Data: Complete Blood Count: Recent Labs 04/13/2445 04/14/2459904/15/24 0550 WBC 5.7 4.6 4.2 RBC 3.30* 3.12* 3.25* HGB 9.3* 8.8* 9.3* HCT 29.0* 27.5* 28.5* MCV 87.9 88.1 87.7 MCH 28.2 28.2 28.6 MCHC 32.1 32.0 32.6 RDW 13.4 13.2 13.0 PLT 159 183 204 MPV 10.5 10.3 9.7 Last 3 Blood Glucose: Recent Labs 04/13/2445 04/14/24 0600 04/15/24 0550 GLUCOSE 95 93 89 Comprehensive Metabolic Profile: Recent Labs 04/13/2445 04/14/24 0604/15/24 0550 NA 139 139 138 K 3.3* [...] substance(s) Nutrition status: at risk for malnutrition Bow Tacker consult initiated Hospital Prophylaxis: DVT: SCD's Stress Ulcer: Not indicated at this time Disposition: Shared decision making: All test results, treatment options and disposition options were discussed with the patient today Social determinants of health that may impact management: none Code status: Full Code Disposition: Discharge plan is pending [facility] Advanced Care Planning documentation: [x] I [...] the patient's medical record. [DOES NOT SATISFY [facility] PERFORMANCE] Brandee Rivera APRN - RAPHAEL , KYLEE, TRACER POWDER BLENDER-C Hospitalist Medicine 04/15/2024, 8:33 AM Associated attestation - Nicolette Wyman MD - 04/15/2024 7:18 PM EDT Images from the original note were not included. [address] , [place], [place], [address] Attestation Patient: Barbra Claros Date of Admission: 04/10/2024 6:08 PM Hospital Day # 5 Date of Evaluation: 04/15/2024 I personally evaluated and examined the patient [id number] in conjunction with the PA/TRACER POWDER BLENDER and agree with the management and dispostition of the patient. Please see the PA/TRACER POWDER BLENDER's note for full details.My hunter findings are: [...] with the plan as outlined in the TRACER POWDER BLENDER/PA's note Disposition: Discharge plan is pending Please note that this chart was generated using voice recognition ChartsNow (now MusicQubed)on dictation software. Although every effort was made to ensure the accuracy of this automated youth leader, some errors in youth leader may have occurred. Nicolette Wyman MD 04/15/2024 [...] Rodriguez RN - 04/14/2024 4:30 PM EDT Nylon Machine Operator to patients bedside at this time due to call light going off. Upon arrival at bedside, patient is sitting on the side of the bed holding her abdomen and is in tears and states she is in a lot of pain, rated 10/10. PRN dilaudid given per patients request. Nylon Machine Operator called Dr. Wyman and updated him on patients condition, order received for abdominal x-ray. Care ongoing. * Ayana Rodriguez RN - 04/14/2024 2:01 PM EDT Nylon Machine Operator to patients bedside at this time to complete afternoon assessment. When law writer arrived at bedside, patient was in the bathroom standing over toilet and stated she felt like she might get sick.Nylon Machine Operator assisted patient back to the bed and gave her a bucket. Patient states she tried to eat a few bites of her lunch and that is when she became very nauseous. Nylon Machine Operator called Dr. Soriano who state s to [...] tender. Patient states she is passing gas. Nylon Machine Operator assessed incision which is dry and intact [...] General Surgery 04/14/24 11:33 AM * Ayana oRdriguez RN - 04/14/2024 11:32 AM EDT Patient is requesting to eat some real food. Patient states she is not getting nauseous with the clear liquids. Nylon Machine Operator called Dr. oSriano about patients request and states her diet can be advanced to full liquid. Order placed for full liquid diet. * Kat Dubose OTA - 04/14/2024 11:03 AM EDT Occupational Therapy Facility/Department: [facility] MED [facility]G Daily Treatment Note NAME: Barbra [...] Minutes 15 JOY Desir * Sandra Morrison PTA - 04/14/2024 10:51 AM EDT Physical Therapy Facility/Department: [facility] Daily Treatment Note NAME: Barbra Claros : 1995 Date of Service: 04/14/2024 Discharge Recommendations: Continue to assess pending progress, Home with assist PRN Patient Diagnosis(es): The primary encounter diagnosis was Pneumoperitoneum. Diagnoses of Perforated diverticulum and Peritoneal cavity free air were also pertinent to this visit. Assessment Assessment: Pt. ambulated 602qmm3 without AD and management of IV pole [...] from the original note were not included. [address] [place], [place], [address] Progress Note Date: 04/14/2024 Patient name: Barbra [...] She reports current drug use. Drug: Marijuana (Belle). TOBACCO: reports that she has been smoking [...] taking: Reported on 02/06/2024 10/31/23 Mickie Barrientos, DO ALLERGIES: Chlorpheniramine, Dm-apap-cpm, Dextromethorphan, Other, and [...] clubbing or edema DIAGNOSTICS: Laboratory Testing: See [facility] EMR for lab data Recent Results (from [...] mg IntraVENous Q3H PRN Brandee Mcpherson APRN- DECK ENGINEER 0.5 mg at 04/13/24 0518 dextrose 5 % and 0.45 % NaCl with KCl 20 mEq infusion IntraVENous Continuous Lexii Rivera APRN - DECK ENGINEER 100 mL/hr at 04/14/24 0107 New Bag at 04/14/24 0107 sodium chloride flush 0.9 % injection 10 mL 10 mL IntraVENous 2 times per day Aubrie Gray AIRPORT OPERATIONS COORDINATOR - DECK ENGINEER 10 mL at 04/11/24 203 sodium chloride flush 0.9 % injection 10 mL 10 mL IntraVENous PRN Aubrie Gray AIRPORT OPERATIONS COORDINATOR - DECK ENGINEER 0.9 % sodium chloride infusion IntraVENous PRN Aubrie Gray AIRPORT OPERATIONS COORDINATOR - DECK ENGINEER ondansetron (ZOFRAN-ODT) disintegrating tablet 4 mg 4 mg Oral Q8H PRN Aubrie Gray AIRPORT OPERATIONS COORDINATOR - DECK ENGINEER Or ondansetron (ZOFRAN) injection 4 mg 4 mg IntraVENous Q6H PRN Aurbie Gray AIRPORT OPERATIONS COORDINATOR - DECK ENGINEER 4 mg at 04/14/24 0113 polyethylene glycol (GLYCOLAX) packet 17 g 17 g Oral Daily PRN Aubrie Gray, AIRPORT OPERATIONS COORDINATOR - DECK ENGINEER enoxaparin (LOVENOX) injection 40 mg 40 mg SubCUTAneous Daily Cristiano Singh MD 40 mg at 04/13/24 0956 ketorolac (TORADOL) injection 30 mg 30 mg IntraVENous Q6H PRN Brandee Rivera AIRPORT OPERATIONS COORDINATOR - DECK ENGINEER 30 mg at 04/13/24 0653 promethazine (PHENERGAN) 12.5mg in sodium chloride 0.9% 50 mL IVPB SOLN 12.5 mg 12.5 mg [id number] PRN Brandee Rivera AIRPORT OPERATIONS COORDINATOR - DECK ENGINEER Stopped at 04/11/24 1354 lactated ringers [...] this chart was generated using voice recognition ChartsNow (now MusicQubed)on dictation software. Although every effort was made to ensure the accuracy of this automated youth leader, some errors in youth leader may have occurred. Nicolette Wyman MD 04/14/2024 [...] feels like she is havinga panic attack. Nylon Machine Operator made Dr. Wyman aware and medication orders [...] 04/13/2024 11:20 AM EDT Occupational Therapy Facility/Department: [facility] MED [facility] Daily Treatment Note NAME: Barbra [...] Minutes 16 JOY Desir * Sandra Morrison SITE OPERATIONS MANAGER - 04/13/2024 11:01 AM EDT Physical Therapy Facility/Department: [facility] Daily Treatment Note NAME: Barbra Claros : 1995 Date of Service: 04/13/2024 Discharge Recommendations: Continue to assess pending progress, Home with assist PRN Patient Diagnosis(es): The primary encounter diagnosis was Pneumoperitoneum. Diagnoses of Perforated diverticulum and Peritoneal cavity free air were also pertinent to this visit. Assessment Assessment: Pt. ambulated 477ier8 without AD and management of IV pole [...] Schmid RN - 04/13/2024 6:55 AM EDT Nylon Machine Operator made aware by Dr. Wyman that patient [...] from the original note were not included. [address] , [place], [place], [address] Progress Note Date: 04/13/2024 Patient name: Barbra [...] Anxiety, Depression, Heartburn, and Seizures ([facility]). PAST SURGICAL HISTORY: has a past [...] She reports current drug use. Drug: Marijuana (Belle). TOBACCO: reports that she has been smoking [...] clubbing or edema DIAGNOSTICS: Laboratory Testing: See [facility] EMR for lab data Recent Results [...] IntraVENous Q3H PRN Brandee Mcpherson APRN - DECK ENGINEER Or HYDROmorphone (DILAUDID) injection 0.5 mg 0.5 mg IntraVENous Q3H PRN Brandee Mcpherson AIRPORT OPERATIONS COORDINATOR- DECK ENGINEER 0.5 mg at 04/13/24 0518 dextrose 5 % and 0.45 % NaCl with KCl 20 mEq infusion IntraVENous Continuous Lexii Rivera APRN - DECK ENGINEER 100 mL/hr at 04/13/24 0517 New Bag at 04/13/24 0517 sodium chloride flush 0.9 % injection 10 mL 10 mL IntraVENous 2 times per day Aubrie Gray, AIRPORT OPERATIONS COORDINATOR - DECK ENGINEER 10 mL at 04/11/242030 sodium chloride flush 0.9 % injection 10 mL 10 mL IntraVENous PRN Aubrie Gray, AIRPORT OPERATIONS COORDINATOR - DECK ENGINEER 0.9 % sodium chloride infusion IntraVENous PRN Aubrie Gray, AIRPORT OPERATIONS COORDINATOR - DECK ENGINEER potassium chloride (KLOR-CON M) extended release tablet 40 mEq 40 mEq Oral PRN Aubrie Gray, AIRPORT OPERATIONS COORDINATOR- DECK ENGINEER Or potassium bicarb-citric acid (EFFER-K) effervescent tablet 40 mEq 40 mEq Oral PRN Aubrie Gray L, AIRPORT OPERATIONS COORDINATOR - DECK ENGINEER Or potassium chloride 10 mEq/100 mL IVPB (Peripheral Line) 10 mEq IntraVENous PRN Aubrie Gray, AIRPORT OPERATIONS COORDINATOR- DECK ENGINEER ondansetron (ZOFRAN-ODT) disintegrating tablet 4 mg 4 mg Oral Q8H PRN Aubrie Gray, AIRPORT OPERATIONS COORDINATOR - DECK ENGINEER Or ondansetron (ZOFRAN) injection 4 mg 4 mg IntraVENous Q6H PRN Aubrie Gray, AIRPORT OPERATIONS COORDINATOR - DECK ENGINEER 4 mg at 04/12/24 2235 polyethylene glycol (GLYCOLAX) packet 17 g 17 g Oral Daily PRN Aubrie Gray, AIRPORT OPERATIONS COORDINATOR - DECK ENGINEER enoxaparin (LOVENOX) injection 40 mg 40 mg SubCUTAneous Daily Cristiano Singh MD 40 mg at 04/12/24 0915 ketorolac (TORADOL) injection 30 mg 30 mg IntraVENous Q6H PRN Brandee Rivera AIRPORT OPERATIONS COORDINATOR - DECK ENGINEER 30 mg at 04/13/24 0018 promethazine (PHENERGAN) 12.5mg in sodium chloride 0.9% 50 mL IVPB SOLN 12.5 mg 12.5 mg [id number] PRN Brandee Rivera AIRPORT OPERATIONS COORDINATOR - DECK ENGINEER Stopped at 04/11/24 1354 lactated ringers [...] this chart was generated using voice recognition ChartsNow (now MusicQubed)on dictation software. Although every effort was made to ensure the accuracy of this automated youth leader, some errors in youth leader may have occurred. Nicolette Wyman MD 04/13/2024 6:41 AM * Ivy [...] 04/12/2024 1:55 PM EDT Physical Therapy Facility/Department: [facility] Daily Treatment Note NAME: Barbra Claros : 1995 Date of Service: 04/12/2024 Discharge Recommendations: Continue to assess pending progress, Home with assist PRN Patient Diagnosis(es): The primary encounter diagnosis was Pneumoperitoneum. Diagnoses of Perforated diverticulum and Peritoneal cavity free air were also pertinent to this visit. Assessment Assessment: Pt. ambulated [id number] with no AD and management of IV [...] 04/12/2024 12:42 PM EDT Occupational Therapy Facility/Department: [facility] Daily Treatment Note NAME: Barbra [...] from IV pole. Standing rest break required chcf through walk. MIn A for return to [...] Minutes 17 GLENN Goodwin, OTR/L * Sandra Morrison, SITE OPERATIONS MANAGER - 04/12/2024 12:07 PM EDT Physical Therapy Facility/Department: [facility] Daily Treatment Note NAME: Barbra Claros : 1995 Date of Service: 04/12/2024 Discharge Recommendations: Continue to assess pending progress, Home with assist PRN Patient Diagnosis(es): The primary encounter diagnosis was Pneumoperitoneum. Diagnoses of Perforated diverticulum and Peritoneal cavity free air were also pertinent to this visit. Assessment Assessment: Pt. ambulated [id number] with no AD and management of IV [...] She resting in bed complaints of pain 8-9/10. Passed flatus. No BM. ROS: Constitutional: negative [...] Last 3 Blood Glucose: Recent Labs 04/09/24 11404/10/24184604/11/24 0530 GLUCOSE 73* 88 136* Comprehensive Metabolic [...] substance(s) Nutrition status: at risk for malnutrition Bow Tacker consult initiated Hospital Prophylaxis: DVT: SCD's Stress Ulcer: Not indicated at this time Disposition: Shared decision making: All test results, treatment options and disposition options were discussed with the patient today Social determinants of health that may impact management: none Code status: Full Code Disposition: Discharge plan is pending [facility] Advanced Care Planning documentation: [x] I [...] the patient's medical record. [DOES NOT SATISFY [facility] PERFORMANCE] Brandee Rivera APRN - RAPHAEL , AIRPORT OPERATIONS COORDINATOR, TRACER POWDER BLENDER-C Hospitalist Medicine 04/12/2024, 6:54 AM Associated attestation - Nicolette Wyman MD - 04/12/2024 8:42 AM EDT Images from the original note were not included. [address] , [place], [place], [address] Attestation Patient: Barbra Claros Date of Admission: 04/10/2024 6:08 PM Hospital Day # 2 Date of Evaluation: 04/12/2024 I personally evaluated and examined the patient [id number] in conjunction with the PA/TRACER POWDER BLENDER and agree with the management and dispostition of the patient. Please see the PA/TRACER POWDER BLENDER's note for full details.My hunter findings are: [...] with the plan as outlined in the TRACER POWDER BLENDER/PA's note Disposition: Discharge plan is pending Please note that this chart was generated using voice recognition ChartsNow (now MusicQubed)on dictation software. Although every effort was made to ensure the accuracy of this automated youth leader, some errors in youth leader may have occurred. Nicolette Wyman MD 04/12/2024 [...] to a 7 and it was tolerable. Nylon Machine Operator encouraged patient to get up and walk throughout the day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 encounter [facility] HealthcareEvaluation note* Diagnosis Severe episode of recurrent major depressive disorder, without psychotic features (HCC) (CMS/HCC)- Primary documented in this encounter [facility] HealthcareEvaluation note* Diagnosis Onset Date Resolution Status Admit Date Major depressive disorder acute November 07, 2024 1:28am Suicidal ideation acute October 1:28am [facility] Work Phone: History and physical note Author Kit fox 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 She was agreeable to treatment and hopes [...] Specifically last Monday, she was sent to [place] ED due to panic attacks at which time they suggested that she voluntarily admit herself to [address] but said she was talked out of it by her mother. Has been wanting to increase her venlafaxine dose recently. 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 Gurrola. This morning she denies SI, HI, delusions. 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 Note Date/Time November 15, 2024 11:57 am [facility] [address] [place] [address] Psychiatry H&P Signed Patient: Barbra Claros MR#: [id number] : 1995 Acct:[id number] Age/Sex: 29 / F Adm Date: 5 Loc: Room: [address] [place] [address] Type: ADM IN Attending Dr: Dashawn Moreno [...] noted that she [facility]. She noted [...] List clean-up 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 Martinez [facility] Work Phone: Hospital Discharge instructions* Attachments The following attachments cannot be sent through Care Everywhere. * EGD (Upper Endoscopy): Post-op (Salvadorean) documented in this encounterB[facility] Dis[facility]* Attachments The following attachments cannot be sent through Care Everywhere. * URI (Upper Respiratory Infection): Viral (Salvadorean) documented in this encounterBON [facility] Discharge instructions Additional Instructions Important Contact Information You can call [facility] Inpatient Behavioral Health at [phone] any time day or night if you have emergent questions or question regarding discharge instructions. If at any time you are feeling an increase in your psychiatric symptoms, call your physician or behavioral healthcare provider. If any time you have thoughts of harming yourself or others contact one of the following: Call 4-88 (available 09/01) Crisis Text Line (available 09/01) text 4HOPE to [phone] [facility] Hope Line (available 8 a.m. Midnight) call [phone] ([phone]) [facility] Work Phone: InstructionsNot on filedocumented in this encounter [facility]ructions[facility] filedocumented in this encounter [facility]ructionsNot on filedocumented in this encounter [facility]ructionsNot on filedocumented in this encounter [facility]ructionsNot on filedocumented in this encounter [facility] SystemInstructionsNot on filedocumented in this encounter [facility] note Author Kit fox [facility] Note Date/Time November 08, 2024 1:42p m [facility] [address] [place] [address] Psychiatry Progress Note Signed Patient: Barbra Claros MR#: [id number] : 1995 Acct:[id number] Age/Sex: 29 / F Adm Date: 5 Loc: 1S Room: [address] [place] [address] Type : ADM IN Attending Dr: Kit [...] <Electronically signed by Kit Gutierrez MD> 11/08/24 1340 [facility] Work Phone: Progress note Author Kit fox [facility] Note Date/Time November 09, 2024 7:31a m [facility] [address] [place] [address] Psychiatry Progress Note Signed Patient: Barbra Claros MR#: [id number] : 1995 Acct:[id number] Age/Sex: 29 / F Adm Date: 5 Loc: Room: [address] [place] [address] Type : ADM IN Attending Dr: Kit [...] plan.? Documented By: Kit Gutierrez MD 5 [id number] Signed By: <Electronically signed by Kit Gutierrez MD> 11/09/24 0731 [facility] Work Phone: Reason for referral (narrative)* Consultation (Routine) - Pending Review Specialty Diagnoses / Procedures Referred By Siomara t Referred To Contact Internal Medicine Diagnoses Routine general medical examination at a health care facility Lisha Owusu MD [facility] [address] [place] [address] [address] [facility] Adult Med [address] [place] [address] Referral ID Status Reason Start Date Expiration Date Visits Requested Visits Authorized [id number] Pending Review Specialty Services Required 02/15/2024 02/14/2025 1 1 [facility] NarrativePATIENT HERE AT THE REQUEST OF DR. 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, NAUSEA& VOMITING, ABDOMINAL PAIN, BLOOD IN STOOLC[place] [employer] Other Chief Complaint and Reason for Visit [...] am Unknown November 23, 2024 8:25p m Chief Complaint Admit Date Mental Health Eval November 07, 2024 1:28a m Mental Health Eval November 07, 2024 11:21 am SI November 14, 2024 11:39 pm SI November 15, 2024 10:49 am Unknown November 23, 2024 8:25p m MHP December 03, 2024 10:0 0pm MHP December 29, 2024 11:0 5pm Reason for Visit Admit Date Major depressive disorder November 07, 2024 1:28am Suicidal ideation November 07, 2024 1:28a m Major depressive disorder November 14, 2024 11:39pm Suicidal ideation November 14, 2024 11:39 pm Deliberate self-cutting December 03, 2024 10:00pm Depression with suicidal ideation November 172024 10:00pm Homicidal ideation December 03, 2024 10:0 0pm Pain in tooth December 29, 2024 11:0 5pm Suicidal ideation December 29, 2024 11:0 5pm Reason for Visit Admit Date Major depressive disorder November 07, 2024 1:28am Suicidal ideation November 07, 2024 1:28a m Major depressive disorder November 14, 2024 11:39pm Suicidal ideation November 14, 2024 11:39 pm Deliberate self-cutting December 03, 2024 10:00pm Depression with suicidal ideation November 172024 10:00pm Homicidal ideation December 03, 2024 10:0 0pm Depression with suicidal ideation December 172024 11:05pm Pain in tooth December 29, 2024 11:0 5pm Suicidal ideation December 29, 2024 11:0 5pm Chief Complaint Admit Date Mental Health Eval November 07, 2024 1:28a m Mental Health Eval November 07, 2024 11:21 am SI November 14, 2024 11:39 pm SI November 15, 2024 10:49 am Unknown November 23, 2024 8:25p m MHP December 03, 2024 10:0 0pm MHP December 29, 2024 11:0 5pm BH January 08, 2025 8:53 am MHP,suicidal January 22, 2025 4:2 2pm Reason for Visit Admit Date Major depressive disorder November 07, 2024 1:28am Suicidal ideation November 07, 2024 1:28a m Major depressive disorder November 14, 2024 11:39pm Suicidal ideation November 14, 2024 11:39 pm Deliberate self-cutting December 03, 2024 10:00pm Homicidal ideation December 03, 2024 10:0 0pm Depression with suicidal ideation November 172024 10:00pm Pain in tooth December 29, 2024 11:0 5pm Depression with suicidal ideation December 172024 11:05pm Suicidal ideation December 29, 2024 11:0 5pm Reason for Visit Admit Date Major depressive disorder November 07, 2024 1:28am Suicidal ideation November 07, 2024 1:28a m Major depressive disorder November 14, 2024 11:39pm Suicidal ideation November 14, 2024 11:39 pm Deliberate self-cutting December 03, 2024 10:00pm Homicidal ideation December 03, 2024 10:0 0pm Depression with suicidal ideation November 172024 10:00pm Pain in tooth December 29, 2024 11:0 5pm Depression with suicidal ideation December 172024 11:05pm Suicidal ideation December 29, 2024 11:0 5pm Major depressive disorder, recurrent Aug us2024 4:22pm Suicidal ideation January 22, 2025 4:2 2pm Chief Complaint Admit Date Mental Health Eval November 07, 2024 1:28a m SI November 14, 2024 11:39 pm SI November 15, 2024 10:49 am Unknown November 23, 2024 8:25p m MHP December 03, 2024 10:0 0pm MHP December 29, 2024 11:0 5pm MHP,suicidal January 22, 2025 4:2 2pm BH January 27, 2025 10 :00am poss UTI February 08, 2025 2: 02pm Reason for Visit Admit Date Major depressive disorder November 07, 2024 1:28am Suicidal ideation November 07, 2024 1:28a m Major depressive disorder November 14, 2024 11:39pm Suicidal ideation November 14, 2024 11:39 pm Deliberate self-cutting December 03, 2024 10:00pm Homicidal ideation December 03, 2024 10:0 0pm Depression with suicidal ideation November 172024 10:00pm Pain in tooth December 29, 2024 11:0 5pm Depression with suicidal ideation December 172024 11:05pm Suicidal ideation December 29, 2024 11:0 5pm Major depressive disorder, recurrent Aug us2024 4:22pm Suicidal ideation January 22, 2025 4:2 2pm Abdominal pain February 08, 2025 2: 02pm Chief Complaint Admit Date SI November 14, 2024 11:39 pm SI November 15, 2024 10:49 am Unknown November 23, 2024 8:25p m MHP December 03, 2024 10:0 0pm MHP December 29, 2024 11:0 5pm MHP,suicidal January 22, 2025 4:2 2pm BH January 27, 2025 10 :00am poss UTI February 08, 2025 2: 02pm Reason for Visit Admit Date Major depressive disorder November 14, 2024 11:39pm Suicidal ideation November 14, 2024 11:39 pm Deliberate self-cutting December 03, 2024 10:00pm Homicidal ideation December 03, 2024 10:0 0pm Depression with suicidal ideation November 172024 10:00pm Pain in tooth December 29, 2024 11:0 5pm Depression with suicidal ideation December 172024 11:05pm Suicidal ideation December 29, 2024 11:0 5pm Major depressive disorder, recurrent Aug us2024 4:22pm Suicidal ideation January 22, 2025 4:2 2pm Abdominal pain February 08, 2025 2: 02pm Chief Complaint Admit Date MHP December 03, 2024 10:0 0pm MHP December 29, 2024 11:0 5pm MHP,suicidal January 22, 2025 4:2 2pm poss UTI February 08, 2025 2: 02pm R30.0,N39.0 February 08, 2025 2: 30pm BH February 13, 2025 9: 54am Cough, congestion 3of3 February 24 9:56am Reason for Visit Admit Date Deliberate self-cutting December 03, 2024 10:00pm Homicidal ideation December 03, 2024 10:0 0pm Depression with suicidal ideation November 172024 10:00pm Pain in tooth December 29, 2024 11:0 5pm Depression with suicidal ideation December 172024 11:05pm Suicidal ideation December 29, 2024 11:0 5pm Major depressive disorder, recurrent Aug us2024 4:22pm Suicidal ideation January 22, 2025 4:2 2pm Abdominal pain February 08, 2025 2: 02pm Chief Complaint Admit Date MHP December 29, 2024 11:0 5pm MHP,suicidal January 22, 2025 4:2 2pm poss UTI February 08, 2025 2: 02pm R30.0,N39.0 February 08, 2025 2: 30pm Cough, congestion 3of3 February 24 9:56am BH February 24, 2025 10:00am Hemorrhagic Cyst Right Ovary March 9:59pm Reason for Visit Admit Date Pain in tooth December 29, 2024 11:0 5pm Depression with suicidal ideation December 172024 11:05pm Suicidal ideation December 29, 2024 11:0 5pm Major depressive disorder, recurrent Aug us2024 4:22pm Suicidal ideation January 22, 2025 4:2 2pm Abdominal pain February 08, 2025 2: 02pm Bacterial pharyngitis February 24 9:56am UTI (urinary tract infection) February 24, 2025 9:56am Viral URI February 24, 2025 9:56am Chronic right lower quadrant pain Octobe 2024 9:59pm Ovarian cyst March 19, 2025 9: 59pm Advance Directives Advance Directive Response Recorded Date/ Time Advance [...] Chronic GERD Diarrhea, unspecified type Gas pain K21.5GYK-70-ZXEbeeold GERD R19.1LFP-47-HTVamiphme, unspecified type R14.2WLX-56-ZMKkb pain Procedures PA ESOPHAGOGASTRODUODENOSCOPY TRANSORAL DIAGNOSTIC PA EGD TRANSORAL BIOPSY SINGLE/MULTIPLE PA EGD BALLOON DILATION ESOPHAGUS <30 MM DIAM EGD Kisha Rangel MD [address] [place] [address] [facility] [address] [place] [address] Referral ID Status Reason Start Date Expiration Date Visits Re quested Visits Authorized [id number] 1 1 Reason Comments Chest Pain Shortness [...] Adenomyosis [N80.03] Pelvic congestion syndrome [N94.89] Procedures PA LAPS TOTAL HYSTERECT 250 GM/< W/RMVL TUBE/OVARY HYSTERECTOMY VAGINAL LAPAROSCOPIC ROBOTIC ASSISTED - POSSIBLE BILATERAL SALPINGOOPHORECTOMY, POSSIBLE LAPAROSCOPIC COLPOPEXY Radha La, Mickie F, DO [address] [place] [address] [facility] [address] [place] [address] Referral ID Status Reason Start Date Expiration Date Visits Re quested Visits Authorized [id number] 1 1 Reason Comments Abdominal Pain Pt [...] Pneumoperitoneum Perforated diverticulum Nicolette Wyman MD [address] [place] [address] [facility] [address] [place] [address] Referral ID Status Reason Start Date Expiration Date Visits Re quested Visits Authorized [id number] 1 1 Reason Onset Date Comments Pain [...] NO FAMILY Primary Care Provider Active Jonathan Kranthii , DO Admit Provider, Attending Provider Active Doughnut Icer Relationship Specialty Start Date End Date Melida Huang APRN [facility] [address] [place] [address] PCP - General Nurse Practitioner 07/14/23 Doughnut Icer Relationship Specialty Start Date End Date Melida Haung APRN [facility] [address] [place] [address] PCP - General Nurse Practitioner 07/14/23 Doughnut Icer Relationship Specialty Start Date End Date Melida Huang APRN [facility] [address] [place] [address] PCP - General Nurse Practitioner 07/14/23 Team Status: Inactive Member Role Status Dates PHYSICIAN NO FAMILY Primary Care Provider Active Start: January 08, 2024 End: January 08, 2024 Nikhil Quiñones PA-C Emergency Provider Active Start: January 08, 2024 End: January 08, 2024 Doughnut Icer Relationship Specialty Start Date End Date Melida Huang APRN [facility] [address] [place] [address] PCP - General Nurse Practitioner 07/14/23 Doughnut Icer Relationship Specialty Start Date End Date Melida Huang AIRPORT OPERATIONS COORDINATOR - [facility] [address] [place] [address] PCP - General Nurse Practitioner 07/14/23 Doughnut Icer Relationship Specialty Start Date End Date Melida Huang APRN [facility] [address] [place] [address] PCP - General Nurse Practitioner 07/14/23 Doughnut Icer Relationship Specialty Start Date End Date Melida Huang [facility] [address] [facility] [address] PCP - General Nurse Practitioner 07/14/23 Doughnut Icer Relationship Specialty Start Date End Date ReinaMelida givens [facility] [address] [facility] [address] PCP - General Nurse Practitioner 07/14/23 Doughnut Icer Relationship Specialty Start Date End Date ReinaMelida givens [facility] [address] [facility] [address] PCP - General Nurse Practitioner 07/14/23 Doughnut Icer Relationship Specialty Start Date End Date Melida Huang [facility] [address] [place] [facility] [address] PCP - General Nurse Practitioner 07/14/23 Doughnut Icer Relationship Specialty Start Date End Date Unallocated, Juliet Ivan MD [address] [place] [address] PCP - General 12/01/22 Michael Gurrola MD [address] [facility] [address] [place] [address] Obstetrics and Gynecology 03/08/23 Doughnut Icer Relationship Specialty Start Date End Date Unallocated, Juliet Ivan MD [address] [place] [address] PCP - General 12/01/22 Michael Gurrola MD [address] [facility] [place] [address] Obstetrics and Gynecology 03/08/23 Team Status: Inactive Member Role Status Dates PHYSICIAN NO FAMILY Primary Care Provider Active Start: July 22, 2024 End: July 22, 2024 Fe Cruz APRN Attending Provider Active S tart: July 22, 2024 End: July 22, 2024 Doughnut Icer Relationship Specialty Start Date End Date Melida Huang [facility] [address] [place] [address] PCP - General Family Medicine 01/11/22 Doughnut Icer Relationship Specialty Start Date End Date Melida Huang [facility] [address], [place] [address] PCP - General Family Medicine 01/11/22 Doughnut Icer Relationship Specialty Start Date End Date Melida Huang [facility] [address], [place] [address] PCP - General Family Medicine 01/11/22 Doughnut Icer Relationship Specialty Start Date End Date [facility] [address], [place] [address] PCP - General Family Medicine 01/11/22 Doughnut Icer Relationship Specialty Start Date End Date Melida Huang [facility] [address], [place] [address] PCP - General Family Medicine 01/11/22 Doughnut Icer Relationship Specialty Start Date End Date No Pcp, [place] [address] PCP - General Family Medicine 02/07/24 Doughnut Icer Relationship Specialty Start Date End Date Unallocated, Juliet Ivan MD [address] [facility] [address] PCP - General 12/01/22 Michael Gurrola MD [address] [place] [address] Obstetrics and Gynecology 03/08/23 Doughnut Icer Relationship Specialty Start Date End Date Unallocated, Juliet Ivan MD [address] [facility] [address] PCP - General 12/01/22 Michael Gurrola MD [address] [place] [address] Obstetrics and Gynecology 03/08/23 Doughnut Icer Relationship Specialty Start Date End Date Unallocated, Juliet Ivan MD [address] [place] [address] PCP - General 12/01/22 Michael Gurrola MD [address] [place] [address] Obstetrics and Gynecology 03/08/23 Team Status: Active Member Role Status Dates PHYSICIAN NO FAMILY Primary Care Provider Active Start: November 14, 2024 Ameya Salguero , DO Emergency Provider Active St art: November [...] Start: November 15, 2024 Ameya Salguero , DO Emergency Provider Active St art: November 15, 2024 Dashawn Moreno MD Admit Provider, Atte nding Provider, Other Provider Active Start: November 15, 2024 Team Status: Inactive Member Role Status Dates Vik Gunter MD Attending Provider Active St art: November 23, 2024 End: November 23, 2024 Team Status: Inactive Member Role Status Dates PHYSICIAN NO FAMILY Primary Care Provider Active Start: November 07, 2024 End: November 10, 2024 Duane Simons DO Emergency Provider Active Start: November 07, 2024 End: November 10, 2024 Kit Gutierrez MD Admit Provider Active Start: November 07, 2024 End: November 10, 2024 Kit Gutierrez MD Attending Provider Active Start: November 07, 2024 End: November 10, 2024 Team Status: Active Member Role Status Dates PHYSICIAN NO FAMILY Primary Care Provider Active Start: November 07, 2024 Duane Simons DO Emergency Provider Active Start: November 07, 2024 Kit Gutierrez MD Admit Provider Active Start: November 07, 2024 Kit Gutierrez MD Attending Provider Active Start: November 07, 2024 Kit Gutierrez MD Other Provider Active Start: November 07, 2024 Team Status: Inactive Member Role Status Dates PHYSICIAN NO FAMILY Primary Care Provider Active Start: November 14, 2024 End: November 16, 2024 Ameya Salguero DO Emergency Provider Active St art: November 14, 2024 End: November 16, 2024 Dashawn Moreno MD Admit Provider Active Start: November 14, 2024 End: November 16, 2024 Dashawn Moreno MD Attending Provider Active St art: November 14, 2024 End: November 16, 2024 Team Status: Active Member Role Status Dates PHYSICIAN NO FAMILY Primary Care Provider Active Start: November 15, 2024 Ameya Salguero DO Emergency Provider Active St art: November 15, 2024 Dashawn Moreno MD Admit Provider Active Start: November 15, 2024 Dashawn Moreno MD Attending Provider Active St art: November 15, 2024 Dashawn Moreno MD Other Provider Active Start: November 15, 2024 Team Status: Active Member Role Status Dates PHYSICIAN NO FAMILY Primary Care Provider Active Start: December 03, 2024 Asim Wyman Jr, MD Emergency Provider Active Start: December 03, 2024 Kit Gutierrez MD Admit Provider Active Start: December 03, 2024 Kit Gutierrez MD Attending Provider Active Start: December 03, 2024 Kit Gutierrez MD Other Provider Active Start: December 03, 2024 Team Status: Active Member Role Status Dates PHYSICIAN NO FAMILY Primary Care Provider Active Start: December 29, 2024 Norah Sykes MD Emergency Provider Active Start: December 29, 2024 Kit Gutierrez MD Admit Provider Active Start: December 29, 2024 Kit Gutierrez MD Attending Provider Active Start: December 29, 2024 Team Status: Active Member Role Status Dates PHYSICIAN NO FAMILY Primary Care Provider Active Start: December 29, 2024 Norah Sykes MD Emergency Provider Active Start: December 29, 2024 Kit Gutierrez MD Admit Provider Active Start: December 29, 2024 Kit Gutierrez MD Attending Provider Active Start: December 29, 2024 Kit Gutierrez MD Other Provider Active Start: December 29, 2024 Team Status: Active Member Role Status Dates PHYSICIAN NO FAMILY Primary Care Provider Active Start: January 08, 2025 Kit Gutierrez MD Attending Provider Active Start: January 08, 2025 Team Status: Active Member Role Status Dates PHYSICIAN NO FAMILY Primary Care Provider Active Start: January 22, 2025 Duane Simons DO Emergency Provider Active Start: January 22, 2025 Dashawn Moreno MD Admit Provider Active Start: January 22, 2025 Dashawn Moreno MD Attending Provider Active St art: January 22, 2025 Team Status: Active Member Role Status Dates PHYSICIAN NO FAMILY Primary Care Provider Active Start: January 22, 2025 Duane A Keister , DO Emergency Provider Active Start: January 22, 2025 Dashawn Moreno MD Admit Provider Active Start: January 22, 2025 Dashawn Moreno MD Attending Provider Active St art: January 22, 2025 Dashawn Moreno MD Other Provider Active Start: January 22, 2025 Team Status: Active Member Role Status Dates PHYSICIAN NO FAMILY Primary Care Provider Active Start: January 27, 2025 Kit Gutierrez MD Attending Provider Active Start: January 27, 2025 Team Status: Inactive Member Role Status Dates PHYSICIAN NO FAMILY Primary Care Provider Active Start: February 08, 2025 End: February 08, 2025 Fe Cruz APRN Attending Provider Active S tart: February 08, 2025 End: February 08, 2025 Team Status: Inactive Member Role Status Dates Fe Cruz APRN Attending Provider Active S tart: February 08, 2025 End: February 08, 2025 Team Status: Active Member Role Status Dates NON STAFF Primary Care Provider Active Team Status: Active Member Role Status Dates PHYSICIAN NO FAMILY Primary Care Provider Active Start: February 13, 2025 Kit Gutierrez MD Attending Provider Active Start: February 13, 2025 Team Status: Inactive Member Role Status Dates Fe Cruz APRN Attending Provider Active S tart: February 24, 2025 End: February 24, 2025 NON STAFF Primary Care Provider Active Start: February 24, 2025 End: February 24, 2025 Team Status: Active Member Role Status Dates PHYSICIAN NO FAMILY Primary Care Provider Active Start: February 24, 2025 Kit Gutierrez MD Attending Provider Active Start: February 24, 2025 Team Status: Inactive Member Role Status Dates NON STAFF Primary Care Provider Active Start: March 19, 2025 End: March 20, 2025 Michael Gurrola MD Admit Provider Active Start: O ct2024 End: March 20, 2025 Michael Gurrola MD Attending Provider Active Star t: March 19, 2025 End: March 20, 2025 Goals (unrecognized section and content) Goals may [...] 100 mL IVPB (COMPLETED) 2,000 mg, IntraVENous, DIRECTOR OF CONSULTING SERVICES TO O.R., 1 dose, On Mon11/20/23 at [...] (NoRateChange - Provider: Yancy Solorzano APRN - CLOTH PACKER)1505 (Paused - Provider: Haylee Keen APRN - CLOTH PACKER - Comment: Switch to gravity)1506 (New Bag - Provider: Haylee Keen APRN - CLOTH PACKER)1530 (Anesthesia Volume Adjustment - Provider: Haylee Keen APRN - CLOTH PACKER) PRN Medication Order 11/18/2023 11/19/2023 11/20/2023 0.9 [...] than 5 days. 2357 (Given - Provider: Meil Wills RN) morphine injection 4 mg (COMPLETED) 4 mg, IntraVENous, ONCE, 1 dose, On 02/03/24 at 2130, If oral and IV narcotics ordered, use oral first and only use IV if oral is ineffective or cannot take oral. Do Not give oral and IV within 1 hour of each other unless specifically ordered. 2129 (Given - Provider: Meli Wills RN) ondansetron [...] 1151 (Given - Provid er: Abby De Souza, RN) Scheduled Medication Order 04/14/2024 04/15/2024 04/16/2024 bisacodyl (DULCOLAX) suppository 10 mg (COMPLETED) 10 mg, Rectal, ONCE, 1 dose, On 04/15/24 at 0730 0738 (Given - Provider: Juanis Contreras, HENNA) docusate sodium (COLACE) capsule 100 mg 100 mg, Oral, 2 TIMES DAILY, First dose on Mon04/14/24 at 2100, Until Discontinued, Do not crush or break. 2132 (Given - Provider: Madeleine Brewer RN) 08 (Given - Provider: Juanis Contreras RN)2046 (Given [...] Discontinued 816 (Given - Provider: Ayana Rodriguez RN)140 (Given - Provider: Ayana Rodriguez RN)2132 (Given - Provider: Madeleine Brewer RN) 0835 (Given - Provider: Juanis Contreras RN)135 (Given - Provider: Juanis Contreras RN)2046 (Given - Provider: Ivy Schmid RN) 0735 (Given - Provider: Juanis Contreras RN)1403 (Given - Provider: Juanis Contreras, RN)2100 (Due) lactated ringers bolus 1,000 mL [...] swallowed separately. 0834 (Given - Provider: Ayana Rodriguez, HENNA) promethazine (PHENERGAN) 12.5mg in sodium chloride 0.9% 50 mL IVPB SOLN 12.5 mg (COMPLETED) 12.5 mg, IntraVENous, at 100 mL/hr, Administer over 30 Minutes, ONCE, On Mon04/14/24 at 1900, For 1 dose, Administer via antecubital vein or higher. 1920 (New Bag - Provider: Madeleine Brewer RN)1949 (Stopped - Provider: Madeleine Brewer RN) sodium chloride flush 0.9 % injection 10 mL 10 mL, IntraVENous, EVERY 12 HOURS SCHEDULED (2 times per day), First dose on Mariajose 04/11/24 at 0900, Until Discontinued 08 (Given - Provider: Ayana Rodriguez, HENNA)1914 (Given - Provider: Madeleine Brewer, HENNA) 0836 (Given - Provider: Juanis Contreras RN)2047 (Given - Provider: Ivy Schmid RN) 0740 (Given - Provider: Juanis Contreras, RN)2100 (Due) venlafaxine (EFFEXOR XR) extended release capsule 75 mg 75 mg, Oral, DAILY WITH BREAKFAST, First dose on Mon04/14/24 at 0815, Until Discontinued, Do not crush or break. 0817 (Given - Provider: Ayana Rodriguez, HENNA) 0835 (Given - Provider: Juanis Contreras, RN) 0736 (Given - Provider: Juanis Contreras, [...] (Unheld by provider - Provider: Brandee Rivera, AIRPORT OPERATIONS COORDINATOR - DECK ENGINEER) PRN Medication Order 04/14/2024 04/15/2024 04/16/2024 [...] Ayana Rodriguez RN)1417 (Given - Provider: Ayana Rodriguez, HENNA) 0100 (Given - Provider: Madeleine Brewer RN)0734 (See Alternative - Provider: Juanis Contreras, HENNA) ondansetron (ZOFRAN-ODT) disintegrating tablet 4 mg(Linked Group 2) 4 mg, Oral, EVERY 8 HOURS PRN, Starting on Mariajose 04/11/24 at 0143, Until Discontinued, Nausea, Vomiting 0113 (See Alternative - Provider: Ivy Schmid RN)0817 (See Alternative - Provider: Ayana Rodriguez RN)1417 (See Alternative - Provider: Ayana Rodriguez RN) 0100 (See Alternative - Provider: Madeleine Brewer RN)0734 (Given - Provider: Juanis Contreras, HENNA) oxyCODONE-acetaminophen (PERCOCET) 5-325 MG per tablet 1 [...] Contreras RN)1847 (Given - Provider: Ivy Schmid RN)223 (Given - Provider: Ivy Schmid RN) 0328 [...] DATE CREATED AUTHOR AUTHOR'S ORGANIZ ATION 01/04/2024 [facility] DATE CREATED AUTHOR AUTHOR'S ORGANIZ ATION 01/20/2024 [facility] DATE CREATED AUTHOR AUTHOR'S ORGANIZ ATION 01/21/2024 [facility] DATE CREATED AUTHOR AUTHOR'S ORGANIZ ATION 02/14/2024 [facility] DATE CREATED AUTHOR AUTHOR'S ORGANIZ ATION 07/22/2024 Virgie Rowell [facility] DATE CREATED AUTHOR AUTHOR'S ORGANIZ ATION 09/18/2024 [facility] DATE CREATED AUTHOR AUTHOR'S ORGANIZ ATION 11/13/2024 [facility] DATE CREATED AUTHOR AUTHOR'S ORGANIZ ATION 02/11/2025 [facility] Ordered Prescriptions (unrec ognized section [...] BE BASED ON THE PRIMARY CLINICAL RECORDS. [facility]. provides no warranty or guarantee of the accuracy or completeness of information in this document.
[2025-03-23] MEDS: 0.9 % SODIUM CHLORIDE 1,000 ML 1000 ML IV (16:12)
[2025-03-23 16:38] LABS: Hematocrit 37.2 % (36.0-48.0); Hemoglobin 12.4 g/dL (12.0-16.0); Immature Granulocytes Abs Auto 0.02 10^3/uL (0.00-0.03); Immature Granulocytes Pct Auto 0.3 % (0.0-0.5); Lymphocytes Absolute Auto 2.1 10^3/uL (1.2-3.8); Mean Corpuscular HGB Conc 33.3 g/dL (29.9-35.2); Mean Corpuscular Hemoglobin 29.0 pg (26.7-34.0); Mean Corpuscular Volume 86.9 fL (81.0-99.0); Platelet Count 278 10^3/uL (150-450); Red Blood Count 4.28 10^6/uL (4.20-5.40); White Blood Count 6.9 10^3/uL (4.0-11.0)
[2025-03-23 16:54] LABS: Alanine Aminotransferase 31 U/L (14-59); Albumin Globulin Ratio 1.0; Albumin Level 4.0 g/dL (3.4-5.0); Alkaline Phosphatase 68 U/L (46-116); Anion Gap 13.6; Aspartate Amino Transferase 20 U/L (15-37); Blood Urea Nitrogen 13.0 mg/dL (7.0-18.0); Calcium 9.1 mg/dL (8.5-10.1); Carbon Dioxide 28.1 mmol/L (21.0-32.0); Chloride 104 mmol/L (98-107); Estimated GFR (African America >60 (>=60 mL/min/1.73m^2); Estimated GFR (Non-African Ame >60 (>=60 mL/min/1.73m^2); Globulin 3.9 g/dL; Glucose 103 mg/dL (74-106); Potassium 3.7 mmol/L (3.5-5.1); Sodium 142 mmol/L (136-145); Total Protein 7.9 g/dL (6.4-8.2)
[2025-03-23] MEDS: HYDROMORPHONE HCL 0.5 MG/0.5 ML SYRINGE IV ×2 (17:00→18:58)
--- NOTE | 2025-03-23 18:37 | ED.ABDPAIN1 ---
HPI - Abdominal Pain General Chief Complaint: Abdominal Pain Time Seen by Provider: 03/23/25 16:02 Source: patient Mode of arrival: ambulance Limitations: no limitations History of Present Illness HPI narrative: She is very well-known to us she is coming to us with a right lower quadrant abdominal pain that is mostly second to hemorrhagic cyst that she had, she mentioned that the pain is worse than usual and she already was provided with fentanyl by the EMS before arrival, patient is tearful and crying in pain The patient also mentioned that she had some blood in her stool today that she noticed 1 time Related Data Home Medications ?Medication ?Instructions ?Recorded ?Confirmed oxcarbazepine 300 mg tablet 450 mg PO BEDTIME 12/21/24 03/23/25 buspirone 15 mg tablet 15 mg PO TID 03/19/25 03/23/25 cariprazine 4.5 mg capsule 4.5 mg PO DAILY 03/19/25 03/23/25 (Vraylar) hydroxyzine pamoate 50 mg capsule 50 mg PO TID PRN anxiety 03/19/25 03/23/25 trazodone 150 mg tablet 150 mg PO QPM PRN sleep 03/19/25 03/23/25 venlafaxine 150 mg 150 mg PO DAILY 03/19/25 03/23/25 capsule,extended release 24 hr venlafaxine 37.5 mg 37.5 mg PO DAILY 03/19/25 03/23/25 capsule,extended release 24 hr Allergies Allergy/AdvReac Type Severity Reaction Status Date / Time chlorpheniramine (From Allergy Severe Swelling Verified 03/23/25 16:03 Triaminic Cold and Cough) of Lip/Tongue/Throat dextromethorphan (From Allergy Severe Swelling Verified 03/23/25 16:03 Triaminic Cold and Cough) of Lip/Tongue/Throat pseudoephedrine (From Allergy Severe Swelling Verified 03/23/25 16:03 Triaminic Cold and Cough) of Lip/Tongue/Throat Review of Systems ROS Status of ROS 10 or more systems reviewed and unremarkable except as noted in history and below [facility] Surgical History History of appendectomy ?Z90.49 - Acquired absence of other specified parts of digestive tract (ICD-10) History of removal of ovarian cyst ?Z98.890 - Other specified postprocedural states (ICD-10) ?Z87.42 - Personal history of other diseases of the female genital tract (ICD-10) History of hysterectomy ?Z90.710 - Acquired absence of both cervix and uterus (ICD-10) Social History Little interest or pleasure in doing things: not at all Feeling down, depressed, or hopeless: not at all Exam Narrative Exam Narrative: Nurses notes and vital signs reviewed and patient is not hypoxic. General: Distressed due to pain Skin: Warm, dry, no pallor noted. No rash. Head: Normocephalic, atraumatic. Neck: Supple, non-tender. Eye: Pupils are equal, round and EOMI. No scleral icterus. Ears, Nose, Mouth, and Throat: TM are clear, no nasal mucosal hypertrophy. Oral mucosa is moist, no posterior oropharynx erythema, uvula is mid-line Cardiovascular: Regular Rate and Rhythm without murmur, gallop or rub. Respiratory: No accessory muscle use or respiratory distress. Lungs are clear to auscultation, no wheezing, rales or rhonchi Chest Wall: no tenderness Back: No midline thoracic or lumbar vertebral tenderness. No CVA tenderness Musculoskeletal: normal ROM, no calf or popliteal tenderness, no lower extremity edema/swelling GI: Abdomen is soft, non-distended. Normal bowel sounds. No masses appreciated. Lower quadrant tenderness on the right side Neurological: A&O x4. No cranial nerve dysfunction observed. No truncal ataxia. Moves all extremities. Sensation intact. Psychiatric: Cooperative and interactive. Normal mood and affect. Constitutional Vital Signs, click to edit/add: Last Vital Signs Temp 99.0 F 03/23/25 15:55 Pulse 91 H 03/23/25 17:50 Resp 15 03/23/25 17:50 BP 130/72 03/23/25 17:06 Pulse Ox 94 L 03/23/25 17:50 O2 Del Method Room Air 03/23/25 15:55 Course Vital Signs Vital signs: Vital Signs Temperature 99.0 F 03/23/25 15:55 Pulse Rate 117 H 03/23/25 15:55 Respiratory Rate 20 03/23/25 15:55 Blood Pressure 128/101 H 03/23/25 15:55 Pulse Oximetry 98 03/23/25 15:55 Oxygen Delivery Method Room Air 03/23/25 15:55 Temperature 99.0 F 03/23/25 15:55 Pulse Rate 91 H 03/23/25 17:50 Respiratory Rate 15 03/23/25 17:50 Blood Pressure 130/72 03/23/25 17:06 Pulse Oximetry 94 L 03/23/25 17:50 Oxygen Delivery Method Room Air 03/23/25 15:55 MDM - Abdominal Pain MDM Narrative Medical decision making narrative: The patient CBC and chemistry showed no acute pathology but the patient was in significant pain on arrival Additionally I did speak with he mentioned that the patient will mostly have to wait till March for surgery but the patient was in significant pain I did call the DIRECTOR OF COMMUNICATIONS doctor on-call in our facility and the right now the plan is to do an ultrasound of the right lower quadrant to make sure that the patient did not have any ovarian torsion In case there is no ovarian torsion the patient will be admitted for possible surgery tomorrow morning Lab Data Labs: Lab Results 03/23/25 Range/Units 15:32 WBC 6.9 (4.0-11.0) 10^3/uL RBC 4.28 (4.20-5.40) 10^6/uL Hgb 12.4 (12.0-16.0) g/dL Hct 37.2 (36.0-48.0) % MCV 86.9 (81.0-99.0) fL MCH 29.0 (26.7-34.0) pg MCHC 33.3 (29.9-35.2) g/dL RDW 13.2 (11.0-15.0) % Plt Count 278 (150-450) 10^3/uL MPV 9.2 L (9.5-13.5) fL Neut % (Auto) 59.8 (43.0-75.0) % Lymph % (Auto) 30.7 (20.5-60.0) % Monona % (Auto) 8.4 (1.7-12.0) % Eos % (Auto) 0.4 L (0.9-7.0) % Baso % (Auto) 0.4 (0.2-2.0) % Neut # (Auto) 4.1 (1.4-6.5) 10^3/uL Lymph # (Auto) 2.1 (1.2-3.8) 10^3/uL Monona # (Auto) 0.6 (0.3-0.8) 10^3/uL Eos # (Auto) 0.0 (0.0-0.7) 10^3/uL Baso # (Auto) 0.0 (0.0-0.1) 10^3/uL Abs Immat Gran (auto) 0.02 (0.00-0.03) 10^3/uL Imm/Tot Granulo (auto) 0.3 (0.0-0.5) % Sodium 142 (136-145) mmol/L Potassium 3.7 (3.5-5.1) mmol/L Chloride 104 (98-107) mmol/L Carbon Dioxide 28.1 (21.0-32.0) mmol/L Anion Gap 13.6 BUN 13.0 (7.0-18.0) mg/dL Creatinine 0.67 (0.55-1.02) mg/dL Est GFR ( Amer) >60 (>=60 mL/min/1.73m^2) Est GFR (Non-Af Amer) >60 (>=60 mL/min/1.73m^2) BUN/Creatinine Ratio 19.4 Glucose 103 (74-106) mg/dL Calcium 9.1 (8.5-10.1) mg/dL Total Bilirubin 0.2 (0.2-1.0) mg/dL AST 20 (15-37) U/L ALT 31 (14-59) U/L Alkaline Phosphatase 68 (46-116) U/L Total Protein 7.9 (6.4-8.2) g/dL Albumin 4.0 (3.4-5.0) g/dL Globulin 3.9 g/dL Albumin/Globulin Ratio 1.0 Serum HCG, Qual Negative (NEGATIVE) Discharge Plan Discharge Patient Disposition: Still a Patient
--- NOTE | 2025-03-23 19:12 | PC.NURSE ---
patient report given to HENNA Barnes
--- NOTE | 2025-03-23 19:52 | ED.GENADUL1 ---
HPI HPI - General Adult General Chief complaint: Abdominal Pain Time Seen by Provider: 03/23/25 16:02 Source: patient Mode of arrival: ambulance Limitations: no limitations History of Present Illness HPI narrative: 29-year-old female presents to the emergency department and was initially seen by Dr. Andrews and signed out to me after discussing the case with her thoroughly. Please see her full history and physical exam. Related Data Home Medications ?Medication ?Instructions ?Recorded ?Confirmed oxcarbazepine 300 mg tablet 450 mg PO BEDTIME 12/21/24 03/23/25 buspirone 15 mg tablet 15 mg PO TID 03/19/25 03/23/25 cariprazine 4.5 mg capsule 4.5 mg PO DAILY 03/19/25 03/23/25 (Vraylar) hydroxyzine pamoate 50 mg capsule 50 mg PO TID PRN anxiety 03/19/25 03/23/25 trazodone 150 mg tablet 150 mg PO QPM PRN sleep 03/19/25 03/23/25 venlafaxine 150 mg 150 mg PO DAILY 03/19/25 03/23/25 capsule,extended release 24 hr venlafaxine 37.5 mg 37.5 mg PO DAILY 03/19/25 03/23/25 capsule,extended release 24 hr Allergies Allergy/AdvReac Type Severity Reaction Status Date / Time chlorpheniramine (From Allergy Severe Swelling Verified 03/23/25 16:03 Triaminic Cold and Cough) of Lip/Tongue/Throat dextromethorphan (From Allergy Severe Swelling Verified 03/23/25 16:03 Triaminic Cold and Cough) of Lip/Tongue/Throat pseudoephedrine (From Allergy Severe Swelling Verified 03/23/25 16:03 Triaminic Cold and Cough) of Lip/Tongue/Throat Opioid HPI Opioid Management Most Recent Opioid Data: Last Pain Scale 10 Today, 19:00 Last ED Pain Assessment Today, 19:00 Last MAR Pain Assessment Today, 17:00 Ur Phencyclidine Scrn, (NEGATIVE) Negative 01/27/25, 12:40 PFSH PFSH Surgical History History of appendectomy ?Z90.49 - Acquired absence of other specified parts of digestive tract (ICD-10) History of removal of ovarian cyst ?Z98.890 - Other specified postprocedural states (ICD-10) ?Z87.42 - Personal history of other diseases of the female genital tract (ICD-10) History of hysterectomy ?Z90.710 - Acquired absence of both cervix and uterus (ICD-10) Social History Little interest or pleasure in doing things: not at all Feeling down, depressed, or hopeless: not at all Exam Constitutional Vital Signs, click to edit/add: Last Vital Signs Temp 99.0 F 03/23/25 15:55 Pulse 100 H 03/23/25 18:50 Resp 14 03/23/25 18:50 BP 130/72 03/23/25 17:06 Pulse Ox 95 03/23/25 18:50 O2 Del Method Room Air 03/23/25 15:55 Course Vital Signs Vital signs: Vital Signs Temperature 99.0 F 03/23/25 15:55 Pulse Rate 117 H 03/23/25 15:55 Respiratory Rate 20 03/23/25 15:55 Blood Pressure 128/101 H 03/23/25 15:55 Pulse Oximetry 98 03/23/25 15:55 Oxygen Delivery Method Room Air 03/23/25 15:55 Temperature 99.0 F 03/23/25 15:55 Pulse Rate 100 H 03/23/25 18:50 Respiratory Rate 14 03/23/25 18:50 Blood Pressure 130/72 03/23/25 17:06 Pulse Oximetry 95 03/23/25 18:50 Oxygen Delivery Method Room Air 03/23/25 15:55 Medical Decision Making [facility] Narrative Medical decision making narrative: Ultrasound per tech shows no flow to the right ovary. I discussed the case with Dr. Lara. The patient is unable to have surgery here tonight and I have spoken to Dr. Bains and the patient will be transferred to [facility]. The patient is agreeable and stable for transfer. The findings of no blood flow to the right ovary were discussed with Dr. Eastman. We discussed the diagnosis of torsion. Lab Data Lab results reviewed: Yes I reviewed the patient's lab results Labs: Lab Results 03/23/25 Range/Units 15:32 WBC 6.9 (4.0-11.0) 10^3/uL RBC 4.28 (4.20-5.40) 10^6/uL Hgb 12.4 (12.0-16.0) g/dL Hct 37.2 (36.0-48.0) % MCV 86.9 (81.0-99.0) fL MCH 29.0 (26.7-34.0) pg MCHC 33.3 (29.9-35.2) g/dL RDW 13.2 (11.0-15.0) % Plt Count 278 (150-450) 10^3/uL MPV 9.2 L (9.5-13.5) fL Neut % (Auto) 59.8 (43.0-75.0) % Lymph % (Auto) 30.7 (20.5-60.0) % [place] % (Auto) 8.4 (1.7-12.0) % Eos % (Auto) 0.4 L (0.9-7.0) % Baso % (Auto) 0.4 (0.2-2.0) % Neut # (Auto) 4.1 (1.4-6.5) 10^3/uL Lymph # (Auto) 2.1 (1.2-3.8) 10^3/uL [place]eker # (Auto) 0.6 (0.3-0.8) 10^3/uL Eos # (Auto) 0.0 (0.0-0.7) 10^3/uL Baso # (Auto) 0.0 (0.0-0.1) 10^3/uL Abs Immat Gran (auto) 0.02 (0.00-0.03) 10^3/uL Imm/Tot Granulo (auto) 0.3 (0.0-0.5) % Sodium 142 (136-145) mmol/L Potassium 3.7 (3.5-5.1) mmol/L Chloride 104 (98-107) mmol/L Carbon Dioxide 28.1 (21.0-32.0) mmol/L Anion Gap 13.6 BUN 13.0 (7.0-18.0) mg/dL Creatinine 0.67 (0.55-1.02) mg/dL Est GFR ( Amer) >60 (>=60 mL/min/1.73m^2) Est GFR (Non-Af Amer) >60 (>=60 mL/min/1.73m^2) BUN/Creatinine Ratio 19.4 Glucose 103 (74-106) mg/dL Calcium 9.1 (8.5-10.1) mg/dL Total Bilirubin 0.2 (0.2-1.0) mg/dL AST 20 (15-37) U/L ALT 31 (14-59) U/L Alkaline Phosphatase 68 (46-116) U/L Total Protein 7.9 (6.4-8.2) g/dL Albumin 4.0 (3.4-5.0) g/dL Globulin 3.9 g/dL Albumin/Globulin Ratio 1.0 Serum HCG, Qual Negative (NEGATIVE) Discharge Plan Discharge Chief Complaint: Abdominal Pain Clinical Impression: Ovarian torsion Patient Disposition: [facility] Time of Disposition Decision: 19:52 Discharge Location: [facility] Condition: Fair Mode of Transportation: EMS Discharge Date/Time: 03/23/25 21:13
[2025-03-23] MEDS: HYDROMORPHONE HCL 1 MG/ML CARTRIDGE IV (20:01)
== END 2025-03-23 21:13 | disposition short-term general hospital (02) ==
PROVIDERS: Emergency Medicine; Emergency Provider Emergency Medicine
DX: N83.511 Torsion of right ovary and ovarian pedicle (principal); Z90.710 Acquired absence of both cervix and uterus; Z90.721 Acquired absence of ovaries, unilateral
CPT/HCPCS: 36415; 76830; 80053; 84703; 85025; 96374; 96375; 96376; 99285; J1171; J2405

== ENCOUNTER 2025-04-04 11:44 | Emergency (ER) | payer OTHER, SELFPAY ==
[2025-04-04 11:56] VITALS: BP 114/80; PULSE 101; TEMP 36.7; O2SAT 99; BMI 30.5
--- NOTE | 2025-04-04 12:15 | CT_ITS ---
The [address] [address] Patient Name: TYRONE CLAROS MRN: [id number] date: 1995 Sex: F Assigned Patient Location: ER Current Patient Location: ER Accession/Order Number: [id number] Exam Date: 04/04/2025 13:00 Report Date: 04/04/2025 13:23 At the request of: MASON PEREZ MD Procedure: CT abdomen pelvis w con CT ABDOMEN AND PELVIS WITH INTRAVENOUS CONTRAST: CLINICAL HISTORY: Postop day #5 from right oophorectomy, pain COMPARISON: CT abdomen and pelvis 03/19/2025 TECHNIQUE: Spiral images were obtained through the abdomen and pelvis following the administration of intravenous contrast. This CT exam was performed using one or more following dose reduction techniques: Automated exposure control, adjustment of the mA and/or kV according to patient size, or use of iterative reconstruction technique. FINDINGS: Lung Bases: [Bibasilar atelectasis.] Organs:Liver gallbladder portal vein pancreas/spleen kidneys and adrenal glands and aorta all appear unremarkable.[ GI: Stomach is grossly unremarkable. Small bowel appears nondilated. Appendix has been removed. No acute colonic abnormality.[ Pelvis:[Urinary bladder is minimally distended. Uterus is grossly normal. Soft tissue thickening involving the right adnexa. No fluid collection. Peritoneum/Retroperitoneum:Trace hemoperitoneum seen within the pelvis. No free air. No lymphadenopathy.[ Abd wall/Bones:Abdominal wall demonstrates no acute findings. Osseous structures demonstrate degenerative change.[ CT/CT abdomen pelvis w con IMPRESSION: Soft tissue thickening involving the right adnexa. No fluid collection is seen to suggest abscess. Trace hemoperitoneum is seen involving the pelvis. Impression dictated by: Leonard Maria Jr., D.O. 04/04/2025 1:23 PM Dictation Location: [place] [address] Electronically authenticated by: [id number] Y Date: 04/04/2025 13:23
--- OUTSIDE RECORDS SUMMARY | 2025-04-04 12:15 | XMS_ITS | Encounter Summary ---
Author Organization [facility] [facility] Address [id number] [address] [place] [address] Care Team Providers Care Program Development Specialist Name Role Phone No Pcp, No Pcp Primary Care Provider Unavailabl e Encounter Details Date Type Department Care Team ([facility] st Contact Info) Description 09/18/2020 Telephone [facility] -[facility] [address] [place] [id number] Heather Brush, RELIGIOUS HEALER-CNM [address] [phone] Social History Tobacco Use Types Packs/Day Years [...] on filedocumented in this encounter Care Teams Program Development Specialist Relationship Specialty Start Date End Date No Pcp, No Pcp DAISHA [place] [address] PCP - General Family Medicine 09/16/24 documented as of this encounter
--- OUTSIDE RECORDS SUMMARY | 2025-04-04 12:15 | XMS_ITS | Encounter Summary ---
Author Organization [facility] tem Address [id number] [address] [place] [address] Care Team Providers Care Atomic Physics Teacher Name Role Phone No Pcp, No Pcp Primary Care Provider Unavailabl e Encounter Details Date Type Department Care Team (Late st Contact Info) Description 09/22/2020 Orders Only [facility] -[facility] [address] [id number] Morelia Vivar, HENNA Social History Tobacco Use [...] on filedocumented in this encounter Care Teams Atomic Physics Teacher Relationship Specialty Start Date End Date No Pcp, [place] [address] PCP - General Family Medicine 09/16/24 documented as of this encounter
--- OUTSIDE RECORDS SUMMARY | 2025-04-04 12:15 | XMS_ITS | Clinical Summary ---
Author Organization [employer] [facility] Address [id number] [address] [place] [address] Care Team Providers Care Teletype Telegrapher Name Role Phone No Pcp, No Pcp Primary Care Provider Unavailabl e Allergies Active Allergy Reactions Criticality Noted Date Comments Kflglnkcmrenh-Gq-Tokwrmtglwzih Anaphylaxis High 07/2016 Throat Swells Medications acetaminophen [...] drink = 0.6 oz pur e alcohol) [facility] Utilities Answer Date Recorded In the [...] EST [facility] [address] [place] [address] Gynecologic Cytology Consultation Patient Name: BARBRA CLAROS : 1995 (Age: 24) Gender: F Taken: 05/19/2020 Reported: 05/21/2020 Physician(s): FREDRICK Ramachandran ([phone]) Copy To: Med. Rec. #: [id number] Acct: # [id number] Final Cytologic Interpretation ThinPrep Pap Test (Cervical): Satisfactory for evaluation. A transformation zone component was not noted. The lack of a transformation zone component in a patient is not unusual. NEGATIVE FOR INTRAEPITHELIAL LESION OR MALIGNANCY. jja05/21/2020 Interpretation performed at [facility], [address] [place] [id number], License number: [id number]. Electronically Signed Out By EUGENE Lao(ASCP) Date of Last Menstrual Period: (None Given) Other Clinical Conditions: Z3A.01 Less than 8 weeks gestation of Source of Specimen ThinPrep Pap Test (Cervical) Thin Prep Pap (MATERIAL CONTROL ANALYST) Fee Code(s): G0145 The Pap test is a screening test with an inherent, but low, probability of error. The Pap test is primarily effective for the diagnosis and prevention of squamous cell carcinoma. Regular screening is critical for prevention. ThinPrep liquid-based slides, which meet the Armored Transport Service Manager criteria for automated screening, have been screened by the newBrandAnalyticsPrep Imaging System (as of 03/05/07) along with an additional manual rescreening by a substation electrician supervisor and, if indicated, by a pathologist. Tonie Balbuena SHANK CUTTER-CHRISTMAS TREE FARM WORKER PATHOLOGY/CYTOLOGY ORDER PATRICE Final Result COPATH from Last 3 Months or Most Recently Relevant to Health Maintenance Insurance [address] [place] [address] [employer] Advance Directives * Full Code (Latest Code Status on File) Date Activated Date Inactivated Comments 11/27/2020 2:29 AM 11/30/2020 7:03 PM Care Teams Teletype Telegrapher Relationship Specialty Start Date End Date No Pcp, [place] [address] PCP - General Family Medicine 09/16/24
--- OUTSIDE RECORDS SUMMARY | 2025-04-04 12:15 | XMS_ITS | Encounter Summary ---
Author Organization [facility] Address [address] [facility] [place] [address] Care Team Providers Care Oracle Business Intelligence Developer Name Role Phone Unallocated, Noms Provider Primary Care Provi lala Ar Bains MD Unavailable [phone] Encounter Details Date Type Department Care Team (Late Contact Info) Description 03/24/2025 Abstract [facility] [address] [facility] [address] [place] [address] Ar Bains MD [address] [facility] [address] [place] [address] Social History Tobacco Use Types Packs/Day Years [...] as of this encounter Plan of Treatment Upcoming Encounters Date Type Department Care Team (Late Contact Info) Description 04/15/2025 11:30 AM EDT Office Visit [facility] [address] [facility] [address] [place] [address] Ar Bains MD [address] [facility] [address] [place] [address] documented as of this encounter Visit Diagnoses Not on filedocumented in this encounter Care Teams Oracle Business Intelligence Developer Relationship Specialty Start Date End Date Unallocated, Noms Provider, [address] [place] [address] PCP - General 12/01/22 Ar Bains MD [address] [facility] [address] [place] [address] Obstetrics and Gynecology 03/08/23 documented as of this encounter
--- OUTSIDE RECORDS SUMMARY | 2025-04-04 12:15 | XMS_ITS | Encounter Summary ---
Author Organization [facility] Address [address] [place] [address] Care Team Providers Care Gas Operations Analyst Name Role Phone Unallocated, Noms Provider Primary Care Provi lala Ar Bains MD Unavailable [phone] Encounter Details Date Type Department Care Team (Late st Contact Info) Description 04/02/2025 Telephone [facility] [address] [facility] [address] [place] [address] Ar Bains MD [address] [facility] [address] [place] [address] Social History Tobacco Use Types [...] Miscellaneous Notes * Telephone Encounter - Fe Silveira MA - 04/02/2025 2:24 PM EDT Per BJP 4 mg every 4 hrs, PRN Called and spoke with the patient, advised her of Dr. Bains's recommendations regarding the nausea. She voiced understanding and stated she uses [facility] in [place] as her pharmacy and asked about the patch with nausea. I advised her I wasn't aware of this being a side effect but stated the Zofran is being sent in to help with the nausea she is experiencing. Patient voiced understanding and had no other questions at this time. Rx sent with 1 refill to requested pharmacy. * Telephone Encounter - Ar Bains MD - 04/02/2025 1:22 PM EDT Order Zofran. See her as scheduled * Telephone Encounter - Fe Silveira MA - 04/02/2025 11:47 AM EDT Patient's PO appointment is 04/15/25. Do you want to see her sooner? Stop the patch until she is seen? Please advise, thanks! * Telephone Encounter - Fara Catalan - 04/02/2025 10:57 AM EDT Patient called asking if we can send an order over for zofran. The patient states every time she switches her estrogen patches she is nauseous for the whole day. She is unsure if she needs a lower dose possibly. documented in this encounter Plan of Treatment Upcoming Encounters Date Type Department Care Team (Late st Contact Info) Description 04/15/2025 11:30 AM EDT Office Visit [facility] [address] [place] [address] Ar Bains MD [address] [place] [address] documented as of this encounter Visit Diagnoses Diagnosis Nausea Nausea alone documented in this encounter Care Teams Gas Operations Analyst Relationship Specialty Start Date End Date Unallocated, Noms Provider, [address] [place] [address] PCP - General 12/01/22 Ar Bains MD [address] [facility] [address] [place] [address] Obstetrics and Gynecology 03/08/23 documented as of this encounter
--- OUTSIDE RECORDS SUMMARY | 2025-04-04 12:15 | XMS_ITS | Encounter Summary ---
Author Organization [facility] Address [address] [facility] [place] [address] Care Team Providers Care Trimmer Sawyer Name Role Phone Unallocated, Noms Provider Primary Care Provi lala Ar Bains MD Unavailable [phone] Encounter Details Date Type Department Care Team (Late st Contact Info) Description 01/05/2023 Orders Only [facility] [address] [place] [address] Ar Bains MD [address] [facility] [address] [place] [address] Social History Tobacco Use Types [...] EDT Office Visit [facility] [address] [place] [address] Ar Bains MD [address] [facility] [address] [place] [address] documented as of this encounter Procedures Procedure Name Priority Date/Time Associated Diagnosis Comments GLUCOSE Routine 01/05/2023 1:03 PM EDT documented in this encounter Results * Glucose, random (01/05/2023 1:03 PM EDT) Blood Venous blood specimen / Unknown us Ar Bains MD LAB BLOOD ORDERABLES Final Res ult documented in this encounter Visit Diagnoses Not on filedocumented in this encounter Care Teams Trimmer Sawyer Relationship Specialty Start Date End Date Unallocated, Noms Provider, [address] [place] [address] PCP - General 12/01/22 Ar Bains MD [address] [place] [address] Obstetrics and Gynecology 03/08/23 documented as of this encounter
--- OUTSIDE RECORDS SUMMARY | 2025-04-04 12:15 | XMS_ITS | Clinical Summary ---
Author Organization [facility] Address [address] [place] [address] Care Team Providers Care Blasting Helper Name Role Phone Self, Referred Primary Care [...] topic Insurance [employer] [place] [employer] Care Teams Blasting Helper Relationship Specialty Start Date End Date SELF, REFERRED [address] PCP - General 01/13/24
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
--- OUTSIDE RECORDS SUMMARY | 2025-04-04 12:15 | XMS_ITS | Encounter Summary ---
Author Organization [facility] Address [address] [place] [address] Care Team Providers Care Fighting Vehicle Systems Maintainer Name Role Phone Unallocated, Noms Provider Primary Care Provi lala Ar Bains MD Unavailable [phone] Encounter Details Date Type Department Care Team (Late Contact Info) Description 05/08/2023 Abstract [facility]IE [facility] [address] [facility] [address] [place] [address] Ar Bains MD [address] [facility] [address] [place] [address] Social History Tobacco Use Types [...] EDT Office Visit MARIE VILLALOBOS [address] [facility] [address] [place] [address] Ar Bains MD [address] [facility] [address] [place] [address] documented as of this encounter Visit Diagnoses Not on filedocumented in this encounter Care Teams Fighting Vehicle Systems Maintainer Relationship Specialty Start Date End Date Unallocated, Noms Provider, [address] [place] [address] PCP - General 12/01/22 Ar Bains MD [address] [facility] [address] [place] [address] Obstetrics and Gynecology 03/08/23 documented as of this encounter
--- OUTSIDE RECORDS SUMMARY | 2025-04-04 12:15 | XMS_ITS | Encounter Summary ---
Author Organization [facility] Address [address] [place] [address] Care Team Providers Care Wire Galvanizer Name Role Phone Unallocated, Noms Provider Primary Care Provi lala Ar Bains MD Unavailable [phone] Encounter Details Date Type Department Care Team (Late st Contact Info) Description 03/25/2025 External Result Encounter [facility] External Department Unsolicited Ar Bains MD [address] [facility] [address] [place] [address] Social History Tobacco Use Types Packs/Day Years [...] VILLALOBOS [address] [place] [address] Ar Bains MD [address] [facility] [address] [place] [address] documented as of this encounter Procedures Procedure Name Priority Date/Time Associated Diagnosis Comments CBC WITH AUTO DIFFERENTIAL Routine 03/25/2025 6:49 AM EDT documented in this encounter Results * (ABNORMAL) CBC auto differential (03/25/2025 6:49 AM EDT) WBC 6.9 3.8 - 11.6 [CFU]/mL 03/25/2025 7:25 AM EDT [facility] UNCORRECTED WHITE BLOOD COUNT 6.9 3.8 - 11.6 10*3/uL 03/25/2025 7:25 AM EDT [facility] RBC 3.85 3.60 - 5.00 10*6/uL 03/25/2025 7:25 AM EDT [facility] HEMOGLOBIN 11.0(L) 11.8 - 15.4 g/dL 03/25/2025 7:25 AM EDT [facility] HEMATOCRIT 33.2(L) 34.0 - 46.4 % 03/25/2025 7:25 AM EDT [facility] MCV 86.2 80 - 100 fL 03/25/2025 7:25 AM EDT [facility] MCH 28.5 24.7 - 34.3 pg 03/25/2025 7:25 AM EDT [facility] MCHC 33.1 32.0 - 35.0 g/dL 03/25/2025 7:25 AM EDT [facility] RED CELL DISTRIBUTION WIDTH, RDW 14.0 11.9 - 15.3 % 03/25/2025 7:25 AM EDT [facility] PLATELET COUNT 261 150 - 450 10*3/uL 03/25/2025 7:25 AM EDT [facility] MEAN PLATELET VOLUME, MPV 7.4 6.3 - 10.7 fL 03/25/2025 7:25 AM EDT [facility] NEUTROPHILS, % 77.6 . % 03/25/2025 7:25 AM EDT [facility] LYMPHOCYTES, % 14.7 . % 03/25/2025 7:25 AM EDT [facility] MONOCYTE/MACROPHA GE, % 7.6 . % 03/25/2025 7:25 AM EDT [facility] EOSINOPHILS, % 0.0 . % 03/25/2025 7:25 AM EDT [facility] BASOPHILS, % 0.1 . % 03/25/2025 7:25 AM EDT [facility] NRBC 0.1 0 - 0.5 /100{WBC} 03/25/2025 7:25 AM EDT [facility] NEUTROPHILS 5.4 1.8 - 7.7 10*3/uL 03/25/2025 7:25 AM EDT [facility] LYMPHOCYTES 1.0 1.00 - 4.8 10*3/uL 03/25/2025 7:25 AM EDT [facility] MONOCYTES 0.5 0.0 - 0.8 10*3/uL 03/25/2025 7:25 AM EDT [facility] EOSINOPHILS 0.0 0.0 - 0.45 10*3/uL 03/25/2025 7:25 AM EDT [facility] BASOPHILS 0.0 0.0 - 0.2 10*3/uL 03/25/2025 7:25 AM EDT [facility] Blood (Blood) 03/25/2025 6:4 9 AM EDT 03/25/2025 7:15 AM EDT Ar Bains MD LAB BLOOD ORDERABLES Final Res ult [facility] [address] [place] [address], [facility] [address] [place] [address] documented in this encounter Visit Diagnoses Not on filedocumented in this encounter Care Teams Wire Galvanizer Relationship Specialty Start Date End Date Unallocated, Noms Provider, [address] [place] [address] PCP - General 12/01/22 Ar Bains MD [address] [place] [address] Obstetrics and Gynecology 03/08/23 documented as of this encounter
--- OUTSIDE RECORDS SUMMARY | 2025-04-04 12:15 | XMS_ITS | Encounter Summary ---
Author Organization [employer] [facility] Address [id number] [address] [place] [address] Care Team Providers Care Weights And Measures Sealer Name Role Phone No Pcp, No Pcp Primary Care Provider Unavailabl e Encounter Details Date Type Department Care Team (Late st Contact Info) Description 01/14/2024 Telephone [facility] [address] [place] [address] Daiana Guerin Social History Tobacco Use Types Packs/Day Years Used Date Smoking Tobacco: Former Cigarettes Smokeless Tobacco: Never Comments:Down to 2-3 cig/day with Alcohol Use Standard Drinks/Week Comments Never 0 (1 standard drink = 0.6 oz pur e alcohol) [facility] Utilities Answer Date Recorded In the past 12 months has e [employer], gas, oil, or water [employer] threatened to shut off services in your [...] 3:54 PM EDT Cassidy Jones RN * AUDIT-C Score Answer Date of Assessment Author 0 [...] Daiana Guerin - 01/14/2024 8:46 AM EDT [id number] pELVIC aBCESS documented in this encounter Plan [...] documented as of this encounter Care Teams Weights And Measures Sealer Relationship Specialty Start Date End Date No Pcp, [place] [address] PCP - General Family Medicine 09/16/24 documented as of this encounter
--- OUTSIDE RECORDS SUMMARY | 2025-04-04 12:15 | XMS_ITS | Encounter Summary ---
Author Organization [facility] Address [id number] [address] [place] [address] Care Team Providers Care Director Pharmacy Services Name Role Phone No Pcp, No Pcp Primary Care Provider Unavailabl e Encounter Details Date Type Department Care Team (Late st Contact Info) Description 08/28/2023 Orders Only [facility] [address] [place] [address] [place] [phone] External, Scanning Provider Social History Tobacco Use [...] documented as of this encounter Care Teams Director Pharmacy Services Relationship Specialty Start Date End Date No Pcp, [place] [address] PCP - General Family Medicine 09/16/24 documented as of this encounter
--- OUTSIDE RECORDS SUMMARY | 2025-04-04 12:15 | XMS_ITS | Encounter Summary ---
Author Organization [employer] [facility] [employer] Address [id number] [address] [place] [address] Care Team Providers Care Farm Labor Contractor Name Role Phone No Pcp, No Pcp Primary Care Provider Unavailabl e Reason for Referral * Diagnostic Imaging (Routine) - Closed Specialty Diagnoses / Procedures Referred By Contac t Referred To Contact Radiology Diagnoses Acute chest pain Procedures CT chest with contrast [facility] [address] [place] [phone] Phone: tel: fax: Referral ID Status Reason Start Date Expiration Date Visits Re quested Visits Authorized [id number] Closed 01/14/2024 01/13/2025 1 1 * Diagnostic Imaging (Routine) - Closed Specialty Diagnoses / Procedures Referred By Contac t Referred To Contact Radiology Diagnoses Pain Procedures CT abdomen and pelvis with contrast [facility] [facility] [address] [place] [phone] Phone: tel: fax: Referral ID Status Reason Start Date Expiration Date Visits Re quested Visits Authorized [id number] Closed 01/14/2024 01/13/2025 1 1 Encounter Details Date Type Department Care Team (Late st Contact Info) Description 01/14/2024 Orders Only [facility] [place] [address] Transcribe, Orders Support User Pain (Primary Dx); Acute chest pain Social History Tobacco Use Types Packs/Day Years Used Date Smoking Tobacco: Former Cigarettes Smokeless Tobacco: Never Comments:Down to 2-3 cig/day with Alcohol Use Standard Drinks/Week Comments Never 0 (1 standard drink = 0.6 oz pur e alcohol) [facility] Utilities Answer Date Recorded In the past 12 months has th e [employer], gas, oil, or water company threatened to [...] documented as of this encounter Care Teams Farm Labor Contractor Relationship Specialty Start Date End Date No Pcp, [place] [address] PCP - General Family Medicine 09/16/24 documented as of this encounter
--- OUTSIDE RECORDS SUMMARY | 2025-04-04 12:16 | XMS_ITS | Encounter Summary ---
Author [facility] Address [id number] [address] [place] [address] Care Team Providers Care Electric Powerline Examiner Name Role Phone No Pcp, No Pcp [...] with or without consult Chris Cobian MD [address] [place] [address] 12/18/2023 [place] [address] Phone: tel: fax: Maternal- Medicine at [address] [address] Phone: tel: fax: Referral ID Status Reason Start Date Expiration Date Visits Re quested Visits Authorized [id number] Closed 09/16/2020 09/16/2021 1 1 Encounter Details Date Type Department Care Team (Late st Contact Info) Description 09/16/2020 Orders Only [facility] at [address] [address] Chris Cobian MD [address] [facility] [place] [address] Obesity affecting in second trimester (Primary Dx); [...] as of this encounter Results * [facility] OB FOLLOW-UP, 1 FETUS (09/24/2020 11:06 [...] Final 09/24/2020 12:58) PATIENT INFO: ID #: [id number] : [birth year] (25 yrs)(F) Name: BARBRA YANCEY Visit Date: 09/24/2020 10:49 HYACINTH PERFORMED BY: Performed By: Jordyn La RDMS Attending: Lucien Coronado MD Referred By: [facility] Ref. Address: [address] [place] [address] Location: [facility] SERVICE(S) PROVIDED: OB Follow-up, 1 fetus [id number] INDICATIONS: Screening for follow-up survey Z36.2 Obesity [...] Arch: Previously seen SVC: Previously seen Cardiac Walland: Appears normal Diaphragm: Appears normal 3 Vessel [...] Final 09/24/2020 12:58) PATIENT INFO: ID #: [id number] : [birth year] (25 yrs)(F) Name: BARBRA YANCEY Visit Date: 09/24/2020 10:49 HYACINTH PERFORMED BY: Performed By: Jordyn La RDMS Attending: Lucien Coronado MD Referred By: [facility] Ref. Address: [address] [place] [address] Location: [facility] SERVICE(S) PROVIDED: OB Follow-up, 1 fetus [id number] INDICATIONS: Screening for follow-up survey Z36.2 Obesity [...] Arch: Previously seen SVC: Previously seen Cardiac Walland: Appears normal Diaphragm: Appears normal 3 Vessel [...] assessment is normal. us Chris Cobian MD [facility] ORDERABLES Final Result documented in this encounter Visit Diagnoses Diagnosis Obesity affecting in second trimester- Primary Tobacco smoking affecting in second trimester History of marijuana use History of migraine during Supervision of other high-risk Hx of shoulder dystocia in prior , currently documented in this encounter Care Teams Electric Powerline Examiner Relationship Specialty Start Date End Date No Pcp, [place] [address] PCP - General Family Medicine 09/16/24 documented as of this encounter
--- OUTSIDE RECORDS SUMMARY | 2025-04-04 12:16 | XMS_ITS | Encounter Summary ---
Author Organization [employer] [facility] [employer] Address [id number] [address] [place] [address] Care Team Providers Care Headlight Assembler Name Role Phone No Pcp, No Pcp Primary Care Provider Unavailabl e Reason for Visit * Reason Onset Date Comments Transition Of Care 01/18/2024 Encounter Details Date Type Department Care Team (Late st Contact Info) Description [facility]/18[facility]20[facility] [address] [place] [address] Fe James RN Transition Of Care Social History Tobacco Use Types Packs/Day Years Used Date Smoking Tobacco: Former Cigarettes Smokeless Tobacco: Never Comments:Down to 2-3 cig/day with Alcohol Use Standard Drinks/Week Comments Never 0 (1 standard drink = 0.6 oz pur e alcohol) [facility] Utilities Answer Date Recorded In the past 12 months has [employer], gas, oil, or water [employer] threatened to shut off services in your [...] Specialty: Infectious Disease Name of Discharging Facility: [facility] Date of Facility Discharge: 01.13.24-01.17.24 Date of Interactive Contact and Name of Music Industry Intern: 01.18.24 1330 Spoke with the patient. Medication Review Completed: No -We discussed the new medications that were ordered at discharge. She declines to review her complete medication list. She has no questions about her medications at this time. Follow Up Appointments with Providers: Primary: MELIDA OVALLE APRN-INDUSTRIAL AUTOMATION ENGINEER TBD Specialty: OB-Glaze Maker TBD Review of Pending Lab/Diagnostic Tests and [...] documented as of this encounter Care Teams Headlight Assembler Relationship Specialty Start Date End Date No Pcp, [place] [address] PCP - General Family Medicine 09/16/24 documented as of this encounter
--- OUTSIDE RECORDS SUMMARY | 2025-04-04 12:16 | XMS_ITS | Encounter Summary ---
Author Organization [employer] [facility] [employer] Address [id number] [address] [place] [address] Care Team Providers Care Spectrographer Name Role Phone No Pcp, No Pcp Primary Care Provider Unavailabl e Encounter Details Date Type Department Care Team (Late st Contact Info) Description 05/20/2020 Telephone [facility] [address] [facility] [address] [place] [phone] Roxanne Green, CPT Social History Tobacco Use [...] on filedocumented in this encounter Care Teams Spectrographer Relationship Specialty Start Date End Date No Pcp, No Pcp DAISHA [place] [address] PCP - General Family Medicine 09/16/24 documented as of this encounter
--- OUTSIDE RECORDS SUMMARY | 2025-04-04 12:16 | XMS_ITS | Encounter Summary ---
Author Organization [employer] Address [id number] [address] [place] [address] Care Team Providers Care Manager Internet Retails Sales Name Role Phone No Pcp, No Pcp Primary Care Provider Unavailabl e Reason for Visit * Reason Onset Date Comments Phone Encounter 07/02/2020 Encounter Details Date Type Department Care Team (Late st Contact Info) Description 07/02/2020 Telephone [facility] [address] [facility] [address] [place] [address] Tonie Balbuena, GUILLOTINE OPERATOR-SCIENCE PROFESSOR [address] [place] [address] Phone Encounter Social History Tobacco Use Types [...] on filedocumented in this encounter Care Teams Manager Internet Retails Sales Relationship Specialty Start Date End Date No Pcp, [place] [address] PCP - General Family Medicine 09/16/24 documented as of this encounter
--- OUTSIDE RECORDS SUMMARY | 2025-04-04 12:16 | XMS_ITS | Clinical Summary ---
Author Organization [facility] Address [address] [place] [address] Care Team Providers Care Media Intern Name Role Phone Unallocated, Noms Provider Primary Care Provi lala Ar Bains MD Unavailable [phone] Allergies Active Allergy Reactions Criticality Noted [...] TIMES DAILY NEEDED FOR ITCHING 11/01/2024 Active ondansetron (Zofran) 4 MG tabletIndicatio ns:Nausea Take 1 tablet (4 mg) by mouth every 4 (four) hours if needed for nausea 20 tablet 1 04/02/2025 Active Encounters Date Type Department Care Team Description 04/04/2025 Telephone [facility] [address] [place] [address] Fabiola Vasquez LPN 04/02/2025 Telephone [facility] [address] [place] [address] Ar Bains MD 03/25/2025 External Result Encounter [facility] External Department Unsolicited Ar Bains MD 03/24/2025 Abstract [facility] GRISEL[facility] [address] [place] [address] Ar Bains MD 03/20/2025 Telephone [facility] FRANCAN [address] [place] [address] Fe Silveira MA 03/19/2025 Telephone [facility] [address] [place] [address] Ar Bains MD from Last 3 Months Family History Medical History Relation Name Comments [...] 02/28/2022 12:00 PM EDT Plan of Treatment Upcoming Encounters Date Type Department Care Team (Late st Contact Info) Description 04/15/2025 11:30 AM EDT Office Visit [facility]EF[facility] Moe GRISELDA [address] [place] [id number] Ar Bains MD [address] [place] [address] Health Maintenance Due Date Last Done Comments Influenza Vaccine (#1) 2025 04/24/2014 Procedures Procedure Name Priority Date/Time Associated Diagnosis Comments CBC WITH AUTO DIFFERENTIAL Routine 03/25/2025 6:49 AM EDT from Last 3 Months Results * (ABNORMAL) CBC auto differential (03/25/2025 6:49 AM EDT) WBC 6.9 3.8 - 11.6 [CFU]/mL 03/25/2025 7:25 AM EDT [facility] UNCORRECTED WHITE BLOOD COUNT 6.9 3.8 - 11.6 10*3/uL 03/25/2025 7:25 AM EDT [facility] RBC 3.85 3.60 - 5.00 10*6/uL 03/25/2025 7:25 AM EDT [facility] HEMOGLOBIN 11.0(L) 11.8 - 15.4 g/dL 03/25/2025 7:25 AM EDT [facility] HEMATOCRIT 33.2(L) 34.0 - 46.4 % 03/25/2025 7:25 AM EDT [facility] MCV 86.2 80 - 100 fL 03/25/2025 7:25 AM EDT [facility] MCH 28.5 24.7 - 34.3 pg 03/25/2025 7:25 AM EDT [facility] MCHC 33.1 32.0 - 35.0 g/dL 03/25/2025 7:25 AM EDT [facility] RED CELL DISTRIBUTION WIDTH, RDW 14.0 11.9 - 15.3 % 03/25/2025 7:25 AM EDT [facility] PLATELET COUNT 261 150 - 450 10*3/uL 03/25/2025 7:25 AM EDT [facility] MEAN PLATELET VOLUME, MPV 7.4 6.3 - 10.7 fL 03/25/2025 7:25 AM EDT [facility] NEUTROPHILS, % 77.6 . % 03/25/2025 7:25 AM EDT [facility] LYMPHOCYTES, % 14.7 . % 03/25/2025 7:25 AM EDT [facility] MONOCYTE/MACROPHA GE, % 7.6 . % 03/25/2025 7:25 AM EDT [facility] EOSINOPHILS, % 0.0 . % 03/25/2025 7:25 AM EDT [facility] BASOPHILS, % 0.1 . % 03/25/2025 7:25 AM EDT [facility] NRBC 0.1 0 - 0.5 /100{WBC} 03/25/2025 7:25 AM EDT [facility] NEUTROPHILS 5.4 1.8 - 7.7 10*3/uL 03/25/2025 7:25 AM EDT [facility] LYMPHOCYTES 1.0 1.00 - 4.8 10*3/uL 03/25/2025 7:25 AM EDT [facility] MONOCYTES 0.5 0.0 - 0.8 10*3/uL 03/25/2025 7:25 AM EDT [facility] EOSINOPHILS 0.0 0.0 - 0.45 10*3/uL 03/25/2025 7:25 AM EDT [facility] BASOPHILS 0.0 0.0 - 0.2 10*3/uL 03/25/2025 7:25 AM EDT [facility] Blood (Blood) 03/25/2025 6:4 9 AM EDT 03/25/2025 7:15 AM EDT us Ar Bains MD LAB BLOOD ORDERABLES Final Res ult [facility] [address] [place] [address], [facility] [address] [facility] [address] from Last 3 Months Insurance [facility] MEDICAID Care Teams Media Intern Relationship Specialty Start Date End Date Unallocated, Noms Provider, [address] [place] [address] PCP - General 12/01/22 Ar Bains MD [address] [place] [address] Obstetrics and Gynecology 03/08/23
--- OUTSIDE RECORDS SUMMARY | 2025-04-04 12:16 | XMS_ITS | Encounter Summary ---
Author Organization [facility] Address [address] [place] [address] Care Team Providers Care Thrill Performer Name Role Phone Unallocated, Noms Provider Primary Care Provi lala Ar Bains MD Unavailable [phone] Encounter Details Date Type Department Care Team (Late st Contact Info) Description 12/07/2022 Abstract [facility] [address] [facility] [address] [place] [address] Ar Bains MD [address] [facility] [address] [place] [address] Social History Tobacco Use Types [...] VILLALOBOS [address] [place] [address] Ar Bains MD [address] [place] [address] documented as of this encounter Visit Diagnoses Not on filedocumented in this encounter Care Teams Thrill Performer Relationship Specialty Start Date End Date Unallocated, Noms Provider, [address] [place] [address] PCP - General 12/01/22 Ar Bains MD [address] [place] [address] Obstetrics and Gynecology 03/08/23 documented as of this encounter
--- OUTSIDE RECORDS SUMMARY | 2025-04-04 12:20 | XMS_ITS | CCD ---
Author Organization [facility] Care Team Providers Care Bottom Liner Name Role Phone MarthaSylvian Unavailable Hernan Salas Unavailable NO FAMILY, PHYSICIAN Primary Care Provider Unava ilable Nataprawira, DO Juany Attending Provider Visci, DO Jonathan Attending Provider NO FAMILY, PHYSICIAN Primary Care Provider Unava ilable Nataprawira, DO Juany Attending Provider MD Michael Gurrola Attending Provider MD Michael Gurrola Primary Care Provider [phone] MD Melinda Beltre P Attending Provider NO FAMILY, PHYSICIAN Primary Care Provider Unava ilable Visci, DO Jonathan Attending Provider Visci, DO Jonathan Admit Provider MD Michael Gurrola Attending Provider NO FAMILY, PHYSICIAN Primary Care Provider Unava ilable MD Michael Gurrola Primary Care Provider MD Melinda Beltre P Attending Provider Nataprjerad, DO Juany Attending Provider [phone] Visci, DO Jonathan Admit Provider Visci, DO [...] Provider Unava ilable HATTIE Quiñones Emergency Provider [phone] YAIR DAVENPORT Referring Unavailable DIVINE COLEMAN Referring Unavailable DIVINE COLEMAN Attending Unavailable REINA, MELIDA A Referring Unavailable REINA, MELIDA A Primary Care Unavailable REINA, MELIDA A Referring Unavailable REINA, MELIDA A Primary Care Unavailable Reina [employer] SUPERINTENDENT - ROUSTABOUT HAND, Melida A Primary Care Pro vider REINA, [...] Care Unavailable NICOLETTE WYMAN Admitting Unavailable NATE WMYANFAN Attending Unavailable CRISTIANO SINGH Consulting Unavailable [place] [...] Care Unavailable TYRONE BENITO Attending Unavailable Reina [employer] SUPERINTENDENT-ROUSTABOUT HAND, Melida A Primary Care Provi lala No [...] Provider Kit Gutierrez MD Attending Provider [phone] Goyo Epps DO Emergency Provider [phone] Josh CLEARY, Dashawn Admit Provider Dashawn Moreno MD Attending Provider Vik Gunter MD Attending Provider Kit Gutierrez MD Other Provider Dashawn Moreno MD Other Provider Asim Wyman MD Emergency Provider [phone] Norah Sykes MD Emergency Provider Matt CLEARY, Kit Other Provider Nancy Fe PICHARDO Attending Provider NO FAMILY, PHYSICIAN Primary Care Provider Unava ilable Matt CLEARY, Kit Admit Provider Kit Gutierrez MD Attending Provider Duane Simons DO Emergency Provider NO FAMILY, PHYSICIAN Primary Care Provider Unava ilable Josh CLEARY, Dashawn Admit Provider Josh CLEARY, Dashawn Attending Provider Josh CLEARY, Dashawn Other Provider NON STAFF Primary Care Provider Unavailabl e NO FAMILY, PHYSICIAN Primary Care Provider Unava ilable Matt CLEARY, Kit Admit Provider Kit Gutierrez MD Attending Provider [phone] Kit Gutierrez MD Other Provider Michael Gurrola MD Admit Provider Michael Gurrola MD Attending Provider Fe Cruz Admitting Unavailable Fe Cruz Attending Unavailable Michael Gurrola Attending Unavailable NON STAFF Primary Care Unavailable Michael Gurrola Admitting Unavailable NO FAMILY, PHYSICIAN Primary Care Unavailable Matt, Kit Admitting Unavailab le MattMendezKit Attending Unavailab le NO FAMILY, PHYSICIAN Primary Care Unavailable Matt, Kit Admitting Unavailab le Cordell Gutierrezhman Attending Unavailab le NO FAMILY, PHYSICIAN Primary Care Unavailable Dashawn Moreno Admitting Unavailable Dashawn Moreno Attending Unavailable NO FAMILY, PHYSICIAN Primary Care Unavailable Matt Kit Admitting Unavailab le Kit Gutierrez Attending Unavailab le NO FAMILY, PHYSICIAN Primary Care Unavailable Monse Morenomi Admitting Unavailable Dashawn Moreno Attending Unavailable Michael Gurrola Admitting Unavailable Michael Gurrola Attending Unavailable NON STAFF Primary Care Unavailable Goyo Epps Admitting Unavailable Goyo Epps Attending Unavailable NO FAMILY, PHYSICIAN Primary Care Unavailable Vki Gunter Admitting Unavailable Vik Gunter Attending Unavailable Goyo Epps DO Emergency Provider [phone] NO FAMILY, PHYSICIAN Primary Care Provider Unava boone Gutierrez MD, Kit Attending Provider Allergies Allergy Classification Reported Allergen(s) Allergy Type Date of Onset Reaction(s) Facility (20 sources) Chlorpheniramine Drug Allergy 06-21-19 23 Anaphylaxis, Other (See Comments), Other [facility] (20 sources) Dextromethorphan Drug Allergy 06-21-19 23 Other (See Comments), Other [facility] (20 sources) Pseudoephedrine Drug Allergy 06-21-19 23 Other (See Comments), [facility] (20 sources) Acetaminophen / Chlorpheniramine / Dextromethorphan Drug Allergy 11-19-19 17 Angioedema, Swelling, Anaphylaxis [facility] (1 source) Chlorpheniramine; Translations: [Triaminic Allergy] Drug Allergy [facility] (1 source) chlorpheniramine/dextr omethorphan/PSE; Translations: [chlorpheniramine/dext romethorphan/PSE] Propensity to adverse reactions to drug (disorder) [facility] Repository (18 sources) Chlorpheniramine / Phenylpropanolamine Drug Allergy 01-08-20 [address] [facility] (1 source) OTHER; Translations: [OTHER] Propensity to adverse reactions (disorder) 01-13-20 24 [facility] Repository (3 sources) [id number] MINOPHEN; Translations: [YAYOYMMHYQMJB-UF-MCGD AMINOPHEN] Propensity to adverse reactions to drug (disorder) 11-19-19 17 [facility] Repository NEGATED: Highlighted row has been ruled out! (7 sources) Other Propensity to adverse reactions 01-13-20 24 Other (See Comments) [facility] Medications Current Medications Medication Drug Class(es) Dates [...] 4 tablets 10 tablet 04/02/2024 04/05/2024 Active [id number] 200 actuat albuterol 0.09 mg/actuat metered dose [...] 1 tablet by mouth three times daily Start: 12-29-2024 End: 01-22-2025 Buspirone 10 mg tablet Disco ntinued 15 MG PO Three times daily December 29, 2024 12:00am January 22, 2025 5:59pm Start: 11-16-2024 End: 12-29-2024 take 1 tablet by mouth twice daily Buspirone 10 mg tablet Discontinued 10 MG PO Twice daily 60 0 November 16, 2024 12:00am December 29, 2024 11:45pm Start: 11-10-2024 End: 11-16-2024 take 1 tablet by mouth twice daily Buspirone 5 mg Tablet Discontinued 5 MG PO Twice daily 30 15 2 November 10, 2024 12:00am November 16, 2024 12:51pm calcium chloride 0.0014 meq/ml / potassium chloride 0.004 meq/ml / sodium chloride 0.103 meq/ml / sodium lactate 0.028 meq/ml injectable solution (1 source) Start: 11-20-2023 lactated ringers IV soln infusion cariprazine 4.5 mg oral capsule (19 sources) Atypical Antipsychotic Start: 01-24-2025 take 1 capsule by mouth once daily Start: 12-04-2024 End: 01-24-2025 take 1 capsule [...] needed for Constipation 30 capsule 04/16/2024 Active 84 hr estradiol 0.44655 mg/hr transdermal system (3 sources) Estrogen Start: 03-25-2025 apply 1 dose transdermal route two times weekly famotidine 20 mg oral tablet (2 sources) [...] 140 mL 0 08/15/2023 08/22/2023 Active ibuprofen 600 mg oral tablet (20 sources) Nonsteroidal Anti-inflammatory Drug Start: 03-20-2025 take 1 tablet by mouth every six hours as needed for pain Start: 02-26-2023 End: 11-07-2024 take 4 tablets by mouth every twenty-four hours for pain Ibuprofen 600 mg tablet Discontinued 600 MG PO Every 6 hours as needed for pain 30 0 February 26, 2023 12:00am November 07, 2024 12:12am do not exceed 4 doses in a 24 hour period Start: 12-08-2021 End: 11-03-2022 take 1 tablet by mouth every six hours as needed for pain Ibuprofen 600 mg tablet Discontinued 600 MG PO Q6H as needed for pain 30 December 08, 2021 12:00am November 03, 2022 [...] previously). Concentration 0.04 mg/mL PACU only nystatin [id number] unt/ml topical cream (6 sources) Polyene Antifungal Start: 01-05-2022 nystatin (MYCOSTATIN) cream Indications: Thrush Apply 1 application topically in the morning and 1 application before bedtime. 30 g 01/05/2022 Active ondansetron 4 mg disintegrating oral tablet (20 sources) Serotonin-3 Receptor Antagonist Start: 03-26-2025 Start: 11-10-2024 End: 12-29-2024 take 1 tablet by mouth every six hours as needed for nausea Ondansetron 4 mg Tablet,Disintegrating Discontinued 4 MG PO Every 6 hours as needed for Nausea 30 30 0 November 10, 2024 12:00am December 29, 2024 [...] 4 mg (1 source) Start: 04-11-2024 ondansetron (Z OFRAN-ODT) disintegrating tablet 4 mg OXcarbazepine 300 mg oral tablet (20 sources) Anti-epileptic Agent Start: 02-24-2025 Start: 02-24-2025 Oxcarbazepine 300 mg tablet Active MG PO February 24, 2025 12:00am Complies with drug therapy Start: 12-31-2024 End: 02-24-2025 take 3 tablets by mouth once daily at bedtime Oxcarbazepine 150 mg Tablet Discontinued 450 MG PO Daily at bedtime 45 15 December 31, 2024 12:00am February 24, 2025 10:13am Start: 12-06-2024 End: 01-01-2025 take 1 tablet by mouth once daily at bedtime Oxcarbazepine 300 mg Tablet Discontinued 300 MG PO Daily at bedtime 15 December 06, 2024 12:00am January 01, 2025 [...] every morning 0 Active polyethylene glycol 3350 11374 mg powder for oral solution (1 source) [...] take 1 tablet by mouth at bedtime Start: 12-29-2024 End: 01-22-2025 Trazodone 100 mg tablet Disc ontinued 150 MG PO Daily at bedtime as needed for insomnia December 29, 2024 12:00am January 22, 2025 6:00pm Start: 11-16-2024 End: 12-29-2024 take 1 tablet by mouth once daily at bedtime as needed Trazodone 100 mg tablet Discontinued 100 MG PO Daily at bedtime as needed for insomnia 30 0 November 16, 2024 12:00am December 29, 2024 11:30pm Start: 11-10-2024 End: 11-16-2024 take 1 tablet by mouth once daily at bedtime as needed Trazodone 50 mg Tablet Discontinued 50 MG PO Daily at bedtime as needed for Insomnia 15 15 November 10, 2024 12:00am November 16, 2024 12:51pm 24 hr venlafaxine 37.5 mg extended release oral capsule (20 sources) Serotonin and Norepinephrine Reuptake Inhibitor Start: 12-06-2024 take 1 tablet by mouth once daily Start: 11-16-2024 End: 12-06-2024 take 1 tablet by mouth once daily Start: 11-10-2024 End: 11-16-2024 take 1 capsule by mouth once daily in the morning Venlafaxine 37.5 mg Capsule,Extended Release 24hr Discontinued 112.5 MG PO Every morning 90 30 1 November 10, 2024 12:00am November 16, 2024 12:51pm Start: 07-22-2024 take 1 capsule by mo [facility] every twenty-four hours Venlafaxine 75 mg capsule,extended release 24hr Active MG PO July 22, 2024 12:00am Start: 07-22-2024 End: 11-10-2024 take 1 capsule by mouth once daily in the morning Venlafaxine 75 mg capsule,extended release 24hr Discontinued 75 MG PO Every morning July 22, 2024 1:00am November 10, 2024 7:31am Start: 04-17-2024 take 1 capsule by mo [facility] once daily at breakfast venlafaxine (EFFEXOR XR) 75 MG extended release capsule Take 1 capsule by mouth daily (with breakfast) 30 capsule 3 04/17/2024 Active Start: 04-14-2024 take 75 mg by mouth once daily at breakfast 75 mg, Oral, DAILY WITH BREAKFAST, First dose on 04/14/24 at 0815, Until Discontinued, Do not crush or break. take 1 capsule by [facility] every twenty-four hours at mealtime [...] / HYDROcodone bitartrate 5 mg oral tablet (20 sources) Opioid Agonist Start: 01-08-2024 End: 07-22-2024 take 1 tablet by mouth every six hours as needed for pain Hydrocodone-Acetaminophen 5-325 mg tablet Discontinued 1 TAB PO Q6H as needed for pain 10 3 0 January 08, 2024 July 22, 2024 1:21pm Abdominal pain Unspecified abdominal pain Start: 01-08-2024 End: 07-10-2024 HYDROcodone-acetaminophen (N orco) [...] Discontinued, Anxiety amoxicillin 500 mg oral capsule (4 sources) Penicillin-class Antibacterial Start: 02-24-2025 End: 03-20-2025 take 1 capsule by mouth twice daily Amoxicillin 500 mg capsule Discontinued 500 MG PO Twice daily 20 10 0 February 24, 2025 12:00am March 20, 2025 7:59am amoxicillin 875 mg / clavulanate 125 mg oral tablet (6 sources) Penicillin-class Antibacterial Start: 01-04-2022 End: 02-15-2024 take 1 tablet by mouth once daily amoxicillin-pot clavulanate (AUGMENTIN) 875-125 mg per tablet Take 1 tablet by mouth once daily. For 10 days, pt never took 01/04/2022 02/15/2024 Discontinued (Therapy completed) ARIPiprazole 10 mg oral tablet (13 sources) Atypical Antipsychotic Start: 11-16-2024 End: 12-06-2024 take 1 tablet by mouth once daily at bedtime Aripiprazole 10 mg Tablet Discontinued 10 MG PO Daily at bedtime 30 30 0 November 16, 2024 12:00am December 06, 2024 [...] Starting on Mariajose 04/11/24 at 0943, Until Mon04/12/24 at 0656, Allowed for higher pain score per patient request, If oral and IV narcotics ordered, use oral first and only use IV if oral is ineffective or cannot take oral. Do Not give oral and IV within 1 hour of each other unless specifically ordered. Start: 03-17-2024 End: 09-29-2024 take 1 dose by mouth every hour [...] only ferrous sulfate 325 mg oral tablet (20 sources) Start: 02-26-2023 End: 11-07-2024 take 1 tablet by mouth once daily Ferrous Sulfate 325 mg (65 mg iron) tablet Discontinued 325 MG PO Daily 30 18 07February 26, 2023 12:00am November 07, 2024 12:12am fluconazole 100 mg oral tablet (20 sources) Azole Antifungal Start: 01-12-2024 End: 07-22-2024 Fluconazole (Diflucan) 100 mg tablet Discontinued 150 MG PO Once 1 January 12, 2024 12:00am July 22, 2024 [...] since Mon04/15/2024 at 0621 until manually unheld HYDROmorphone hydrochloride 2 mg oral tablet (5 sources) Opioid Agonist Start: 03-20-2025 End: 03-23-2025 take 1 tablet by mouth every six hours as needed for pain Hydromorphone (Dilaudid) 2 mg tablet Discontinued 2 MG PO Every 6 hours as needed for pain 30 7 0 March 20, 2025 March 23, 2025 10:06pm Chronic right lower quadrant pain Cyst of ovary Right lower quadrant pain Other chronic pain Unspecified ovarian cyst, unspecified side Start: 02-07-2024 End: 02-07-2024 take 1 dose [...] oral capsule (20 sources) Antihistamine Start: 02-08-2025 End: 03-23-2025 take 1 capsule by mouth three times daily as needed for anxiety Hydroxyzine Pamoate 50 mg capsule Discontinued 50 MG PO Three times daily as needed for anxiety February 08, 2025 12:00am March 23, 2025 10:06pm Start: 12-29-2024 End: 12-30-2024 take 1 capsule [...] PO Q6H as needed for Anxiety 30 15 0 November 10, 2024 12:00am November 14, 2024 10:12pm Start: 11-07-2024 End: 12-30-2024 take 1 tablet by mouth every six hours Hydroxyzine Hcl 50 mg tablet Discontinued 50 MG PO Every 6 hours November 07, 2024 12:00am December 30, 2024 5:54am Start: 11-01-2024 take 1 tablet by kristel three times daily as needed hydrOXYzine HCl (Atarax) 50 MG tablet TAKE 1 TABLET BY MOUTH THREE TIMES DAILY NEEDED FOR ITCHING 11/01/2024 Active iopamidol (ISOVUE-370) 76 % injection 75 [...] Discontinued 500 MG PO Twice daily 14 7 0 January 12, 2024 12:00am November 07, 2024 [...] 24 hr nicotine 0.583 mg/hr transdermal system (20 sources) Cholinergic Nicotinic Agonist Start: 01-24-2025 End: 02-08-2025 apply 1 dose transdermal route every twenty-four hours Nicotine 14 mg/24 hr Patch 24 Hour Discontinued 14 MG TRANSDERML Daily 20 January 24, 2025 12:00am February 08, 2025 2:18pm Start: 11-16-2024 End: 12-03-2024 apply 1 dose transdermal route every twenty-four hours Nicotine 21 mg/24 hr Patch 24 Hour Discontinued 21 MG TRANSDERML Daily 30 0 November 16, 2024 12:00am December 03, 2024 7:36pm NIFEdipine 30 mg osmotic 24 hr extended release oral tablet (20 sources) Dihydropyridine Calcium Channel Andrew Start: 11-14-2021 End: 12-08-2021 take 1 tablet by mouth once daily Nifedipine (Procardia Xl) 30 mg tablet extended release 24 hr Discontinued 30 MG PO Daily 20 November 14, 2021 12:00am December 08, 2021 [...] sodium chloride 0.9 % 50 mL IVPB (Ywli5Tfk) (2 sources) Start: 04-11-2024 End: 04-12-2024 3,375 [...] 40 mEq predniSONE 20 mg oral tablet (17 sources) Start: 07-22-2024 End: 11-07-2024 take 2 tablets by mouth once daily Prednisone 20 mg tablet Discontinued 40 MG PO Daily 6 3 0 July 22, 2024 1:00am November 07, 2024 12:12am Start: 08-15-2023 End: 08-20-2023 take 2 tablets by mouth once daily predniSONE (DELTASONE) 20 MG tablet Take 2 tablets by mouth daily for 5 days 10 tablet 0 08/15/2023 08/20/2023 Active Rgwjavzb-Gzz-Fl-Fa () 1 mg Tablet (20 sources) Start: 11-03-2022 End: 01-26-2023 take 1 tablet by mouth once daily Cuyidtbz-Tnb-Cz-Fa () 1 mg Tablet Discontinued 1 TAB PO Daily November 02, 2022 11:00pm January 26, 2023 9:37pm Start: 11-03-2022 End: 01-26-2023 take 1 tablet by mouth once daily Ciiujyel-Det-Oo-Fa () 1 mg Tablet Discontinued 1 TAB PO Daily November 03, 2022 12:00am January 26, 2023 10:37pm Start: 11-03-2022 take 1 tablet by kristel th once daily Teemfufo-Dsj-Tw-Fa () 1 mg Tablet Active 1 TAB [...] Q8H as needed for nausea and vomiting 10 0 November 24, 2018 12:00am October 16, 2020 [...] Discontinued 1 APPLICATOR VAGINAL Daily at bedtime 5 0 February 19, 2023 12:00am February 22, 2023 3:05pm Problems Active Problems Problem Classification Problem Date Documented Da te Episodic/Chronic Abdominal pain (20 sources) Unspecified abdominal pain; Translations: [Pain in pelvis] Onset: 4 Episodic Anxiety disorders (2 sources) Anxiety; Translations: [Anxiety disorder, unspecified] Onset: 4 04-14-2024 Chronic Attention-deficit, conduct, and disruptive behavior disorders (17 sources) Attention deficit hyperactivity disorder; Translations: [Attention-deficit hyperactivity disorder, unspecified type] 07-22-2024 Chronic Disorders of teeth and jaw (20 sources) Toothache; Translations: [Other specified disorders of [...] Episodic Immunizations and screening for infectious disease (6 sources) Contact with or exposure to other viral diseases; Translations: [Contact with and (suspected) exposure to covid-19] 07-22-2024 Episodic Impulse control disorders, NEC (18 sources) Homicidal thoughts; Translations: [Homicidal ideations] 12-03-2024 Episodic Menopausal disorders (4 sources) Menopausal symptom; Translations: [Menopausal and female climacteric states] Onset: 5 03-25-2025 Chronic Menstrual disorders (2 sources) Menorrhagia; Translations: [Excessive [...] Onset: 4 Episodic Other nervous system disorders (1 source) Other chronic pain; Translations: [Other chronic pain] Onset: 5 Chronic Other nervous system disorders (11 sources) Postoperative pain ; Translations: [Other acute postprocedural pain] Onset: 4 11-20-2023 Episodic Other and delivery including normal (20 sources) care status; Translations: [Encounter for routine follow-up] 02-27-2023 Episodic Comment on above: Problem List clean-u p per request of Phys. EHR Cmte Other upper respiratory infections (20 sources) Upper respiratory infection; Translations: [Acute upper respiratory infection, unspecified] Onset: 4 08-21-2019 Episodic Comment on above: Problem List clean-u p per request of Phys. EHR Cmte Ovarian cyst (19 sources) Cyst of right ovary; Translations: [Unspecified [...] unspecified] Onset: 4 Episodic Residual codes; unclassified (18 sources) Deliberate self-cutting; Translations: [Other problems related to lifestyle] 12-03-2024 Episodic Septicemia (except in labor) (2 sources) [...] (7 sources) December 12 at 10am with Configuration Technician Mary Lou in [place] at 10am December 13 at 10:20am with nurse and 10:40am with Emani established with CPST, trish and Emani Unclassified (20 sources) for any urgent medical needs Unclassified (10 sources) Go to urgent care for any urgent medical needs. Unclassified (6 sources) was referred at last admission You will receive a phone call Monday morning to set up follow up appointments. Unclassified (15 sources) healthcare consulting manager will call you Monday between 8a and 5p, if you miss this phone call please call back as soon as possible. Unclassified (5 sources) healthcare consulting manager will call you Monday. If you miss this call please call back as soon as possible. Unclassified (6 sources) was referred at last admission Unclassified (9 sources) 01/08/25 at 8:45am with nurse, 9am with Emani Mcmillan at [facility] OP office January 10 at 11:30am with CPSMark Coates Unclassified (18 sources) Go to urgent care with any urgent medical issues. Unclassified (9 sources) healthcare consulting manager will call you tomorrow between 8am & 5pm, if you miss this call please call back as soon as possible. Unclassified (8 sources) 01/28- 10am-11am team meeting 01/29- 8:45am with nurse; 9am with Emani Mcmillan Unclassified (6 sources) Call office to make a 2 week surgical check. Urinary tract infections (9 sources) Urinary tract infectious disease; Translations: [Urinary tract infection, site not specified] Onset: 5 02-24-2025 Episodic Viral infection (1 source) COVID-19; Translations: [COVID-19] Onset: Past or Other Problems Problem Classification Problem [...] membrane ruled out] Onset: 09-21-2020 09-21-2020 Episodic Residual codes; unclassified (1 source) Other problems related to lifestyle; Translations: [Other problems related to lifestyle] Onset: 12-03-2024 Episodic Unclassified (11 sources) Spontaneous rupture of membranes; Translations: [Spontaneous rupture of amniotic membranes] 11-26-2020 Results Test Name Value Interpretation Reference Range Facility Albumin [Mass/volume] in Ser um or Plasma by Bromocresol green (BCG) dye binding methoOrdered By: Goyo Epps on 03-26-2025 Albumin BCG dye [Mass/Vol] 4.4 g/dL 3.5-5.[address] [facility] Bacteria [Presence] in Urine by AutomatedOrdered By: Goyo Epps on 03-26-2025 Bacteria Auto Ql (U) 1+ [HPF] High None Seen [facility] Basic Metabolic PanelOrdered By: Goyo Epps on 03-26-2025 Anion gap [Moles/Vol] 9.9 mmol/L 6.0-15.0 [facility] Comment on above: Performed By: #### C BC, [id number], T4F, ETOH, LIPID, CMP, TSH3 wRFLX #### [facility] [address] Calcium [Mass/Vol] 8.8 mg/dL 8.6-10.3 [facility] Comment on above: Performed By: #### C BC, [id number], T4F, ETOH, LIPID, CMP, TSH3 wRFLX #### [facility] [address] [place] [address] [place] Chloride [Moles/Vol] 105 mmol/L 98-107 [facility] Comment on above: Performed By: #### C BC, [id number], T4F, ETOH, LIPID, CMP, TSH3 wRFLX #### [facility] [address] [place] [address] [place] CO2 [Moles/Vol] 28.7 mmol/L 21.0-31.0 [place] Comment on above: Performed By: #### C BC, [id number], T4F, ETOH, LIPID, CMP, TSH3 wRFLX #### [facility] [address] [place] [address] [place] Creatinine [Mass/Vol] 0.59 mg/dL Low 0.60-1.20 [facility] Comment on above: Performed By: #### C BC, [id number], T4F, ETOH, LIPID, CMP, TSH3 wRFLX #### [address] Glucose [Mass/Vol] 88 mg/dL 70-100 [facility] Comment on above: Result Comment: [place] om Glucose Reference Range is dependent on time and content of last meal. Glucose of more than 200 mg/dL in a nonstressed, ambulatory subject supports the diagnosis of Diabetes Mellitus. ADA recommended reference range Performed By: #### C BC, [id number], T4F, ETOH, LIPID, CMP, TSH3 wRFLX #### [address] ADA recommended refe rence rangeRandom Glucose Reference Range is dependent on time and content of last meal. Glucose of more than 200 mg/dL in a nonstressed, ambulatory subject supports the diagnosis of Diabetes Mellitus. Potassium [Moles/Vol] 3.6 mmol/L 3.5-5.1 [facility] Comment on above: Performed By: #### C BC, [id number], T4F, ETOH, LIPID, CMP, TSH3 wRFLX #### [address] Sodium [Moles/Vol] 140 mmol/L 136-145 [facility] Comment on above: Performed By: #### C BC, [id number], T4F, ETOH, LIPID, CMP, TSH3 wRFLX #### [address] Urea nitrogen [Mass/Vol] 8 mg/dL 7-[address] [facility] Comment on above: Performed By: #### C BC, [id number], T4F, ETOH, LIPID, CMP, TSH3 wRFLX #### [address] Basic Metabolic Panelon 10-0 Creatinine Clr Calc Pharmacy 150.72 Normal [facility] Comment on above: Performed By: #### C BC, [id number], T4F, ETOH, LIPID, CMP, TSH3 wRFLX #### [facility] [address] [place] [id number] [facility] GFR/1.73 sq M.predicted MDRD (S/P/Bld) [Vol rate/Area] mL/min/{1.73_m2} Normal [facility] Comment on above: Performed By: #### C BC, [id number], T4F, ETOH, LIPID, CMP, TSH3 wRFLX #### [facility] [address] [id number] [facility] Bilirubin Test strip Ql (U)O rdered By: Goyo Epps on 03-26-2025 Bilirubin Ql (U) Negative Negative [place] Bilirubin.direct [Mass/volum e] in Serum or PlasmaOrdered By: Goyo Epps on 03-26-2025 Bilirubin.direct [Mass/Vol] 0.00 mg/dL Low 0.03-0.[address] [facility] Comment on above: If the DBIL is less than 0.1, IBIL is not able to becalculated. CT abdomen pelvis w conon CT abdomen pelvis w con [facility] Main [place] [address] [place], [place] [id number] CT Scan Report Signed Patient: Barbra Claros MR#: [id number] : 1995 Acct:[id number] Age/Sex: 29 / F ADM Date: 03/26/25 Loc: ER Room: Type: [facility] ER Attending Dr: Copies to: Goyo Epps DO Ordering Provider: Goyo Epps DO Date of Service: 03/26/25 CT/CT abdomen pelvis w con: Abdominal Pain CT ABDOMEN AND PELVIS WITH INTRAVENOUS CONTRAST: CLINICAL HISTORY: Abdominal pain. Abdominal surgery 2 days ago. COMPARISON: CT abdomen and pelvis 03/19/2025 TECHNIQUE: Spiral images were obtained through the abdomen and pelvis following the administration of intravenous contrast. This CT exam was performed using one or more following dose reduction techniques: Automated exposure control, adjustment of the mA and/or kV according to patient size, or use of iterative reconstruction technique. FINDINGS: Lung Bases: [Mild bibasilar atelectasis.] Organs:Liver gallbladder pancreas spleen adrenal glands kidneys and aorta all appear unremarkable.[ GI: Stomach is grossly unremarkable. Small bowel appears nondilated. No acute colonic abnormality is seen. Appendix has been removed.[ Pelvis:[Urinary bladder is grossly unremarkable. Uterus has been removed.] Peritoneum/Retroperitoneu m:Scattered areas of free air are noted likely postsurgical in nature. Small amount of blood is seen within the pelvis. No lymphadenopathy.[ Abd wall/Bones:Abdominal wall demonstrates postoperative changes. No fluid collection to suggest abscess. Fat-containing umbilical hernia. Osseous structures demonstrate degenerative change.[ CT/CT abdomen pelvis w con IMPRESSION: Impression dictated by: Leonard Maria Jr., DJuddOJudd 03/26/2025 11:31 AM Dictation Location: [place] [address] Transcribed By: [facility] 03/26/25 1131 Dictated By: Leonard Maria Jr, DO 03/26/25 1127 Signed By: 03/26/25 1131 Normal [facility] Complete Blood Count Auto Di ffOrdered By: Goyo Epps on 03-26-2025 Basophils (Bld) [#/Vol] 0.0 10*3/uL 0.0-0.[address] [facility] Comment on above: Result Comment: PERF ORMED BY: [place] [address] PATHOLOGIST TIME STUDY ANALYST AMBER HENNING M.D. Performed By: #### C BC, [id number], T4F, ETOH, LIPID, CMP, TSH3 wRFLX #### [facility] [address] [place] [address] Basophils/100 WBC (Bld) 0.3 % . [facility] Comment on above: Performed By: #### C BC, [id number], T4F, ETOH, LIPID, CMP, TSH3 wRFLX #### [facility] [address] [place] [address] [place] Eosinophils (Bld) [#/Vol] 0.0 10*3/uL 0.0-0.[address] [facility] Comment on above: Performed By: #### C BC, [id number], T4F, ETOH, LIPID, CMP, TSH3 wRFLX #### [address] Eosinophils/100 WBC (Bld) 0.3 % . [facility] Comment on above: Performed By: #### C BC, [id number], T4F, ETOH, LIPID, CMP, TSH3 wRFLX #### [address] Erythrocyte distribution width (RBC) [Ratio] 14.0 % 11.9-15.[address] [facility] Comment on above: Performed By: #### C BC, [id number], T4F, ETOH, LIPID, CMP, TSH3 wRFLX #### [address] Hematocrit (Bld) [Volume fraction] 31.2 % Low 34.0-46.[address] [facility] Comment on above: Performed By: #### C BC, [id number], T4F, ETOH, LIPID, CMP, TSH3 wRFLX #### [address] Hemoglobin (Bld) [Mass/Vol] 10.7 g/dL Low 11.8-15.[address] [facility] Comment on above: Performed By: #### C BC, [id number], T4F, ETOH, LIPID, CMP, TSH3 wRFLX #### [address] Lymphocytes (Bld) [#/Vol] 1.8 10*3/uL 1.00-4.[address] [facility] Comment on above: Performed By: #### C BC, [id number], T4F, ETOH, LIPID, CMP, TSH3 wRFLX #### [address] Lymphocytes/100 WBC (Bld) 21.0 % . [facility] Comment on above: Performed By: #### C BC, [id number], T4F, ETOH, LIPID, CMP, TSH3 wRFLX #### [address] MCH (RBC) [Entitic mass] 29.7 pg 24.7-34.[address] [facility] Comment on above: Performed By: #### C BC, [id number], T4F, ETOH, LIPID, CMP, TSH3 wRFLX #### [address] MCV (RBC) [Entitic vol] 86.6 fL 80-[address] [facility] Comment on above: Performed By: #### C BC, [id number], T4F, ETOH, LIPID, CMP, TSH3 wRFLX #### [address] Monocytes (Bld) [#/Vol] 0.9 10*3/uL High 0.0-0.[address] [facility] Comment on above: Performed By: #### C BC, [id number], T4F, ETOH, LIPID, CMP, TSH3 wRFLX #### [address] Monocytes/100 WBC (Bld) 10.4 % . [facility] Comment on above: Performed By: #### C BC, [id number], T4F, ETOH, LIPID, CMP, TSH3 wRFLX #### [address] Neutrophils (Bld) [#/Vol] 6.0 10*3/uL 1.8-7.[address] [facility] Comment on above: Performed By: #### C BC, [id number], T4F, ETOH, LIPID, CMP, TSH3 wRFLX #### [address] Neutrophils/100 WBC (Bld) 68.0 % . [facility] Comment on above: Performed By: #### C BC, [id number], T4F, ETOH, LIPID, CMP, TSH3 wRFLX #### [address] Platelet mean volume (Bld) [Entitic vol] 7.4 fL 6.3-10.[address] [facility] Comment on above: Performed By: #### C BC, [id number], T4F, ETOH, LIPID, CMP, TSH3 wRFLX #### [facility] [address] Platelets (Bld) [#/Vol] 254 10*3/uL 150-[address] [facility] Comment on above: Performed By: #### C BC, [id number], T4F, ETOH, LIPID, CMP, TSH3 wRFLX #### [facility] [address] [place] [address] [place] RBC (Bld) [#/Vol] 3.61 10*6/uL 3.60-5.00 [facility] Comment on above: Performed By: #### C BC, [id number], T4F, ETOH, LIPID, CMP, TSH3 wRFLX #### [address] WBC (Bld) [#/Vol] 8.8 10*3/uL 3.8-11.6 [facility] Comment on above: Performed By: #### C BC, [id number], T4F, ETOH, LIPID, CMP, TSH3 wRFLX #### [address] Complete Blood Count Auto Di ffon 03-26-2025 Mean Corpuscular HGB Conc 34.3 g/dL Normal 32.0-35.0 [facility] Comment on above: Performed By: #### C BC, [id number], T4F, ETOH, LIPID, CMP, TSH3 wRFLX #### [address] Monocytes/100 WBC (Bld) 19.32 % Normal 0.00-20.00 [facility] Comment on above: Performed By: #### C BC, [id number], T4F, ETOH, LIPID, CMP, TSH3 wRFLX #### [address] NRBC% 0.0 /100{WBC} Normal 0-0.5 [facility] Comment on above: Performed By: #### C BC, [id number], T4F, ETOH, LIPID, CMP, TSH3 wRFLX #### [address] White Blood Count 8.8 [CFU]/mL Normal 3.8-11.6 [facility] Comment on above: Performed By: #### C BC, [id number], T4F, ETOH, LIPID, CMP, TSH3 wRFLX #### [facility] [address] [place] [address] [place] Dipstick and MicroscopicOrde red By: Goyo Epps on 03-26-2025 Appearance (U) Clear Clear [facility] Comment on above: Order Comment: Name Collection Type:: Clean-Voided Midstream Performed By: #### C BC, [id number], T4F, ETOH, LIPID, CMP, TSH3 wRFLX #### [address] Color (U) Colorless Yellow [facility] Comment on above: Order Comment: Name Collection Type:: Clean-Voided Midstream Performed By: #### C BC, [id number], T4F, ETOH, LIPID, CMP, TSH3 wRFLX #### [place] [address] [place] Ketones Ql (U) Negative Negative [facility] Comment on above: Order Comment: Name Collection Type:: Clean-Voided Midstream Performed By: #### C BC, [id number], T4F, ETOH, LIPID, CMP, TSH3 wRFLX #### [place] [address] [place] Leukocyte esterase Test strip Ql (U) Negative Negative [facility] Comment on above: Order Comment: Name Collection Type:: Clean-Voided Midstream Performed By: #### C BC, [id number], T4F, ETOH, LIPID, CMP, TSH3 wRFLX #### [place] [address] [place] pH (U) 6.0 [pH] 5.0-9.[address] [facility] Comment on above: Order Comment: Name Collection Type:: Clean-Voided Midstream Performed By: #### C BC, [id number], T4F, ETOH, LIPID, CMP, TSH3 wRFLX #### [address] Dipstick and Microscopicon 1 Bacteria,Urine 1+ [HPF] Normal None Seen [facility] Comment on above: Order Comment: Name Collection Type:: Clean-Voided Midstream Performed By: #### C BC, [id number], T4F, ETOH, LIPID, CMP, TSH3 wRFLX #### [address] Bilirubin,Urine Negative Normal Negative [facility] Comment on above: Order Comment: Name Collection Type:: Clean-Voided Midstream Performed By: #### C BC, [id number], T4F, ETOH, LIPID, CMP, TSH3 wRFLX #### [address] Glucose Ql (U) Normal Normal Normal [facility] Comment on above: Order Comment: Name Collection Type:: Clean-Voided Midstream Performed By: #### C BC, [id number], T4F, ETOH, LIPID, CMP, TSH3 wRFLX #### [address] Hyaline Casts,Urine None Normal 0-8 [facility] Comment on above: Order Comment: Name Collection Type:: Clean-Voided Midstream Result Comment: PERF ORMED BY: [place] [address] PATHOLOGIST TIME STUDY ANALYST AMBER HENNING M.D. Performed By: #### C BC, [id number], T4F, ETOH, LIPID, CMP, TSH3 wRFLX #### [address] Nitrite,Urine Negative Normal Negative [facility] Comment on above: Order Comment: Name Collection Type:: Clean-Voided Midstream Performed By: #### C BC, [id number], T4F, ETOH, LIPID, CMP, TSH3 wRFLX #### [address] Occult Blood,Urine Trace Normal Negative [facility] Comment on above: Order Comment: Name Collection Type:: Clean-Voided Midstream Result Comment: PERF ORMED BY: [place] [address] PATHOLOGIST TIME STUDY ANALYST AMBER HENNING M.D. Performed By: #### C BC, [id number], T4F, ETOH, LIPID, CMP, TSH3 wRFLX #### [address] Protein,Urine Negative Normal Negative [facility] Comment on above: Order Comment: Name Collection Type:: Clean-Voided Midstream Performed By: #### C BC, [id number], T4F, ETOH, LIPID, CMP, TSH3 wRFLX #### [address] RBC,Urine 1-2 Normal 0-4 [facility] Comment on above: Order Comment: Name Collection Type:: Clean-Voided Midstream Performed By: #### C BC, [id number], T4F, ETOH, LIPID, CMP, TSH3 wRFLX #### [address] Specificy [place],Urine 1.007 Normal 1.001-1.030 [facility] Comment on above: Order Comment: Name Collection Type:: Clean-Voided Midstream Performed By: #### C BC, [id number], T4F, ETOH, LIPID, CMP, TSH3 wRFLX #### [address] Squamous Epithelial Cell,Urine 1-2 Normal 0-2 [facility] Comment on above: Order Comment: Name Collection Type:: Clean-Voided Midstream Performed By: #### C BC, [id number], T4F, ETOH, LIPID, CMP, TSH3 wRFLX #### [address] Urobilinogen,Urine Normal Normal Normal [facility] Comment on above: Order Comment: Name Collection Type:: Clean-Voided Midstream Performed By: #### C BC, [id number], T4F, ETOH, LIPID, CMP, TSH3 wRFLX #### [facility] [address] [place] [address] WBC,Urine 1-2 Normal 0-4 [facility] Comment on above: Order Comment: Name Collection Type:: Clean-Voided Midstream Performed By: #### C BC, [id number], T4F, ETOH, LIPID, CMP, TSH3 wRFLX #### [facility] [address] [place] [address] ECG 12 lead ECGon 03-26-2025 ECG 12 lead ECG [facility] Main [place] [address] [place] [address] Electrocardiograph Report Signed Patient: Barbra Claros MR#: [id number] : 1995 Acct:[id number] Age/Sex: 29 / F ADM Date: 03/26/25 Loc: ER Room: Type: [facility] ER Attending Dr: Ordering Provider: Goyo Epps DO Date of Service: 03/26/2502/10/1051 ECG/ECG 12 lead ECG: Abdominal Pain Copies to: Test Reason : Blood Pressure : 132/71 mmHG Vent. Rate : 104 BPM Atrial Rate : 104 BPM P-R Int : 156 ms QRS Dur : 94 ms QT Int : 344 ms P-R-T Axes : 67 67 67 degrees QTcB Int : 452 ms Sinus tachycardia Otherwise normal ECG When compared with ECG of 23-Jan-2025 07:23, Vent. rate has increased by 41 bpm Confirmed by GOYO EPPS DO ([id number]) on 03/26/2025 7:56:00 PM Referred By: Electronically Signed By: GOYO EPPS DO Transcribed By: MUS Signed By Goyo Epps DO 1955 Normal [facility] Epithelial cells.squamous [# /area] in Urine sediment by Automated countOrdered By: Goyo Epps on 03-26-2025 Epithelial cells.squamous Auto (Urine sed) [#/Area] 1-2 [HPF] 0-[address] [facility] Erythrocytes [#/area] in Uri ne sediment by Automated countOrdered By: Goyo Epps on 03-26-2025 RBC Auto (Urine sed) [#/Area] 1-2 [HPF] 0-[address] [facility] Glomerular filtration rate [ Volume Rate/Area] in Serum, Plasma or Blood by CreatinineOrdered By: Goyo Epps on 03-26-2025 Glomerular filtration rate [Volume Rate/Area] in Serum, Plasma or Blood by Creatinine > 60.0 mL/Min [facility] Glucose [Mass/volume] in Uri ne by Test stripOrdered By: Goyo Epps on 03-26-2025 Glucose Test strip (U) [Mass/Vol] Normal mg/dL Normal [facility] Hemoglobin Test strip Ql (U) Ordered By: Goyo Epps on 03-26-2025 Hemoglobin Ql (U) Trace High Negative [facility] Hepatic Panelon 03-26-2025 Albumin [Mass/Vol] 4.4 g/dL Normal 3.5-5.7 [facility] Comment on above: Performed By: #### C BC, [id number], T4F, ETOH, LIPID, CMP, TSH3 wRFLX #### [address] Bilirubin,Indirect 0.4 mg/dL Normal [facility] Comment on above: Performed By: #### C BC, [id number], T4F, ETOH, LIPID, CMP, TSH3 wRFLX #### [facility] [address] Bilirubin.indirect [Mass/Vol] 0.00 mg/dL Low 0.03-0.18 [facility] Comment on above: Result Comment: If t he DBIL is less than 0.1, IBIL is not able to be calculated. Performed By: #### C BC, [id number], T4F, ETOH, LIPID, CMP, TSH3 wRFLX #### [facility] [address] Hepatic PanelOrdered By: Robina Epps on 03-26-2025 Albumin/Globulin [Mass ratio] 1.5 {ratio} [facility] Comment on above: Performed By: #### C BC, [id number], T4F, ETOH, LIPID, CMP, TSH3 wRFLX #### [address] ALP [Catalytic activity/Vol] 52 U/L 34-[address] [facility] Comment on above: Performed By: #### C BC, [id number], T4F, ETOH, LIPID, CMP, TSH3 wRFLX #### [address] ALT [Catalytic activity/Vol] 20 U/L 7-[address] [facility] Comment on above: Performed By: #### C BC, [id number], T4F, ETOH, LIPID, CMP, TSH3 wRFLX #### [address] AST [Catalytic activity/Vol] 21 U/L 13-[address] [facility] Comment on above: Performed By: #### C BC, [id number], T4F, ETOH, LIPID, CMP, TSH3 wRFLX #### [address] Bilirubin [Mass/Vol] 0.4 mg/dL 0.3-1.0 [facility] Comment on above: Performed By: #### C BC, [id number], T4F, ETOH, LIPID, CMP, TSH3 wRFLX #### [address] Globulin (S) [Mass/Vol] 3.0 g/dL [facility] Comment on above: Performed By: #### C BC, [id number], T4F, ETOH, LIPID, CMP, TSH3 wRFLX #### [address] Protein [Mass/Vol] 7.4 g/dL 6.4-8.9 [facility] Comment on above: Performed By: #### C BC, [id number], T4F, ETOH, LIPID, CMP, TSH3 wRFLX #### [address] Hyaline casts [#/area] in Ur ine sediment by Automated countOrdered By: Goyo Epps on 03-26-2025 Hyaline casts Auto (Urine sed) [#/Area] None [LPF] 0-[address] [facility] Leukocytes [#/area] in Urine sediment by Automated countOrdered By: Goyo Epps on 03-26-2025 WBC Auto (Urine sed) [#/Area] 1-2 [HPF] 0-[address] [facility] Leukocytes [#/volume] correc arminda for nucleated erythrocytes in Blood by Automated counOrdered By: Goyo Epps on 03-26-2025 WBC corrected for nucl RBC Auto (Bld) [#/Vol] 8.8 10*3/uL 3.8-11.[address] [facility] LipaseOrdered By: Goyo kunz on 03-26-2025 Lipase [Catalytic activity/Vol] 12.0 U/L 11.0-82.[address] [facility] Comment on above: Result Comment: PERF ORMED BY: [place] [address] PATHOLOGIST TIME STUDY ANALYST AMBER HENNING M.D. Performed By: #### C BC, [id number], T4F, ETOH, LIPID, CMP, TSH3 wRFLX #### [address] MCHC Auto (RBC) [Mass/Vol]Or dered By: Goyo Epps on 03-26-2025 MCHC (RBC) [Mass/Vol] 34.3 g/dL 32.0-35.0 [facility] Monocyte distribution width [Entitic volume] in Blood by AutomatedOrdered By: Goyo Epps on 03-26-2025 Monocyte distribution width Auto (Bld) [Entitic vol] 19.32 % 0.00-20.[address] [facility] Nitrite Test strip Ql (U)Ord ered By: Goyo Epps on 03-26-2025 Nitrite Ql (U) Negative Negative [facility] No Panel InformationOrdered By: Goyo Epps on 03-26-2025 Pharmacy Creatinine Clearance (Chem 150.[address] [facility] Nucleated erythrocytes [Pres ence] in Blood by Automated countOrdered By: Goyo Epps on 03-26-2025 Nucleated RBC Auto Ql (Bld) 0.0 /100{WBC} 0-0.[address] [facility] Protein Test strip (U) [Mass /Vol]Ordered By: Goyo Epps on 03-26-2025 Protein (U) [Mass/Vol] Negative Negative [facility] Serum or plasma non-glucuron idated bilirubin measurement (mass/volume)Ordered By: Goyo Epps on 03-26-2025 Bilirubin.indirect [Mass/Vol] 0.4 mg/dL [facility] Specific gravity Test strip (U) [Rel density]Ordered By: Goyo Epps on 03-26-2025 Specific gravity (U) [Rel density] 1.007 1.001-1.[address] [facility] Urobilinogen Test strip (U) [Mass/Vol]Ordered By: Goyo Epps on 03-26-2025 Urobilinogen (U) [Mass/Vol] Normal mg/dL Normal [facility] Basophils [#/volume] in Bloo d by Automated countOrdered By: MICHAEL GURROLA on 03-25-2025 Basophils (Bld) [#/Vol] 0.0 10*3/uL 0.0-0.[address] [facility] Comment on above: Result Comment: PERF ORMED BY: [address] [place] [address] PATHOLOGIST TIME STUDY ANALYST AMBER HENNING M.D. Performed By: #### C BC, [id number], T4F, ETOH, LIPID, CMP, TSH3 wRFLX #### [place] [address] [place] Basophils/100 leukocytes in Blood by Automated countOrdered By: MICHAEL GURROLA on 03-25-2025 Basophils/100 WBC (Bld) 0.1 % . [facility] Comment on above: Performed By: #### C BC, [id number], T4F, ETOH, LIPID, CMP, TSH3 wRFLX #### [address] CBC W Auto Differential pane l (Bld)on 03-25-2025 Basophils (Bld) [#/Vol] 0 10*3/uL 0.0 - 0.2 10*3/uL [facility] Basophils/100 WBC Manual cnt (Syn fld) 0.1 % . [facility] Eosinophils (Bld) [#/Vol] 0 10*3/uL 0.0 - 0.45 10*3/uL [facility] Eosinophils/100 WBC Manual cnt (Syn fld) 0 % . [facility] Erythrocyte distribution width (RBC) [Ratio] 14 % 11.9 - 15.3 % [facility] Hematocrit (Bld) [Volume fraction] 33.2 % Low 34.0 - 46.4 % [facility] Hemoglobin (Bld) [Mass/Vol] 11 g/dL Low 11.8 - 15.4 g/dL [facility] Interpretation and review of laboratory results Abnormal [facility] Lymphocytes (Bld) [#/Vol] 1 10*3/uL 1.00 - 4.8 10*3/uL [facility] Lymphocytes/100 WBC Manual cnt (Syn fld) 14.7 % . [facility] MCH (RBC) [Entitic mass] 28.5 pg 24.7 - 34.3 pg [facility] MCHC (RBC) [Mass/Vol] 33.1 g/dL 32.0 - 35.0 g/dL [facility] MCV (RBC) [Entitic vol] 86.2 fL 80 - 100 fL [facility] Monocytes (Bld) [#/Vol] 0.5 10*3/uL 0.0 - 0.8 10*3/uL [facility] Monocytes+Macrophages /100 WBC Manual cnt (Syn fld) 7.6 % . [facility] Neutrophils (Bld) [#/Vol] 5.4 10*3/uL 1.8 - 7.7 10*3/uL [facility] Neutrophils/100 WBC Manual cnt (Syn fld) 77.6 % . [facility] NRBC 0.1 /100{WBC} 0 - 0.5 /100{WBC} [facility] Platelet mean volume (Bld) [Entitic vol] 7.4 fL 6.3 - 10.7 fL [facility] Platelets (Bld) [#/Vol] 261 10*3/uL 150 - 450 10*3/uL [facility] RBC LM.HPF (Urine sed) [#/Area] 3.85 10*6/uL 3.60 - 5.00 10*6/uL [facility] WBC (Bld) [#/Vol] 6.9 10*3/uL 3.8 - 11.6 10*3/uL [facility] WBC LM.HPF (Urine sed) [#/Area] 6.9 [CFU]/mL 3.8 - 11.6 [CFU]/mL [facility] Complete Blood Count Auto Di ffon 03-25-2025 Mean Corpuscular HGB Conc 33.1 g/dL Normal 32.0-35.0 [facility] Comment on above: Performed By: #### C BC, [id number], T4F, ETOH, LIPID, CMP, TSH3 wRFLX #### [address] NRBC% 0.1 /100{WBC} Normal 0-0.5 [facility] Comment on above: Performed By: #### C BC, [id number], T4F, ETOH, LIPID, CMP, TSH3 wRFLX #### [address] White Blood Count 6.9 [CFU]/mL Normal 3.8-11.[address] [facility] Comment on above: Performed By: #### C BC, [id number], T4F, ETOH, LIPID, CMP, TSH3 wRFLX #### [place] [address] [place] Eosinophils [#/volume] in Bl ood by Automated countOrdered By: MICHAEL GURROLA on 03-25-2025 Eosinophils (Bld) [#/Vol] 0.0 10*3/uL 0.0-0.[address] [facility] Comment on above: Performed By: #### C BC, [id number], T4F, ETOH, LIPID, CMP, TSH3 wRFLX #### [place] [address] [place] Eosinophils/100 leukocytes i n Blood by Automated countOrdered By: MICHAEL GURROLA on 03-25-2025 Eosinophils/100 WBC (Bld) 0.0 % . [facility] Comment on above: Performed By: #### C BC, [id number], T4F, ETOH, LIPID, CMP, TSH3 wRFLX #### [facility] [address] Erythrocyte distribution wid th [Ratio] by Automated countOrdered By: MICHAEL GURROLA on 03-25-2025 Erythrocyte distribution width (RBC) [Ratio] 14.0 % 11.9-15.[address] [facility] Comment on above: Performed By: #### C BC, [id number], T4F, ETOH, LIPID, CMP, TSH3 wRFLX #### [address] Erythrocytes [#/volume] in B lood by Automated countOrdered By: MICHAEL GURROLA on 03-25-2025 RBC (Bld) [#/Vol] 3.85 10*6/uL 3.60-5.00 [facility] Comment on above: Performed By: #### C BC, [id number], T4F, ETOH, LIPID, CMP, TSH3 wRFLX #### [address] Hematocrit [Volume Fraction] of Blood by Automated countOrdered By: MICHAEL GURROLA on 03-25-2025 Hematocrit (Bld) [Volume fraction] 33.2 % Low 34.0-46.[address] [facility] Comment on above: Performed By: #### C BC, [id number], T4F, ETOH, LIPID, CMP, TSH3 wRFLX #### [address] Hemoglobin [Mass/volume] in BloodOrdered By: MICHAEL GURROLA on 03-25-2025 Hemoglobin (Bld) [Mass/Vol] 11.0 g/dL Low 11.8-15.[address] [facility] Comment on above: Performed By: #### C BC, [id number], T4F, ETOH, LIPID, CMP, TSH3 wRFLX #### [address] Leukocytes [#/volume] correc arminda for nucleated erythrocytes in Blood by Automated counOrdered By: MICHAEL GURROLA on 03-25-2025 WBC corrected for nucl RBC Auto (Bld) [#/Vol] 6.9 10*3/uL 3.8-11.[address] [facility] Leukocytes [#/volume] in Blo od by Automated countOrdered By: MICHAEL GURROLA on 03-25-2025 WBC (Bld) [#/Vol] 6.9 10*3/uL 3.8-11.6 [facility] Comment on above: Performed By: #### C BC, [id number], T4F, ETOH, LIPID, CMP, TSH3 wRFLX #### [facility] [address] [place] [address] [place] Lymphocytes [#/volume] in Bl ood by Automated countOrdered By: MICHAEL GURROLA on 03-25-2025 Lymphocytes (Bld) [#/Vol] 1.0 10*3/uL 1.00-4.[address] [facility] Comment on above: Performed By: #### C BC, [id number], T4F, ETOH, LIPID, CMP, TSH3 wRFLX #### [facility] [address] [place] [address] [place] Lymphocytes/100 leukocytes i n Blood by Automated countOrdered By: MICHAEL GURROLA on 03-25-2025 Lymphocytes/100 WBC (Bld) 14.7 % . [facility] Comment on above: Performed By: #### C BC, [id number], T4F, ETOH, LIPID, CMP, TSH3 wRFLX #### [facility] [address] [place] [address] [place] MCH [Entitic mass] by Automa arminda countOrdered By: MICHAEL GURROLA on 03-25-2025 MCH (RBC) [Entitic mass] 28.5 pg 24.7-34.[address] [facility] Comment on above: Performed By: #### C BC, [id number], T4F, ETOH, LIPID, CMP, TSH3 wRFLX #### [facility] [address] [place] [address] [place] MCHC Auto (RBC) [Mass/Vol]Or dered By: MICHAEL GURROLA on 03-25-2025 MCHC (RBC) [Mass/Vol] 33.1 g/dL 32.0-35.0 [facility] MCV [Entitic volume] by Auto mated countOrdered By: MICHAEL GURROLA on 03-25-2025 MCV (RBC) [Entitic vol] 86.2 fL 80-[address] [facility] Comment on above: Performed By: #### C BC, [id number], T4F, ETOH, LIPID, CMP, TSH3 wRFLX #### [facility] [address] [place] [address] [place] Monocytes [#/volume] in Bloo d by Automated countOrdered By: MICHAEL GURROLA on 03-25-2025 Monocytes (Bld) [#/Vol] 0.5 10*3/uL 0.0-0.[address] [facility] Comment on above: Performed By: #### C BC, [id number], T4F, ETOH, LIPID, CMP, TSH3 wRFLX #### [facility] [address] [place] [address] [place] Monocytes/100 leukocytes in Blood by Automated countOrdered By: MICHAEL GURROLA on 03-25-2025 Monocytes/100 WBC (Bld) 7.6 % . [facility] Comment on above: Performed By: #### C BC, [id number], T4F, ETOH, LIPID, CMP, TSH3 wRFLX #### [facility] [address] [place] [address] [place] Neutrophils [#/volume] in Bl ood by Automated countOrdered By: MICHAEL GURROLA on 03-25-2025 Neutrophils (Bld) [#/Vol] 5.4 10*3/uL 1.8-7.[address] [facility] Comment on above: Performed By: #### C BC, [id number], T4F, ETOH, LIPID, CMP, TSH3 wRFLX #### [facility] [address] [place], [place] [id number] [place] Neutrophils/100 leukocytes i n Blood by Automated countOrdered By: MICHAEL GURROLA on 03-25-2025 Neutrophils/100 WBC (Bld) 77.6 % . [facility] Comment on above: Performed By: #### C BC, [id number], T4F, ETOH, LIPID, CMP, TSH3 wRFLX #### [facility] [address] [place] [address] [place] Nucleated erythrocytes [Pres ence] in Blood by Automated countOrdered By: MICHAEL GURROLA on 03-25-2025 Nucleated RBC Auto Ql (Bld) 0.1 /100{WBC} 0-0.[address] [facility] Platelet mean volume [Entiti c volume] in Blood by Automated countOrdered By: MICHAEL GURROLA on 03-25-2025 Platelet mean volume (Bld) [Entitic vol] 7.4 fL 6.3-10.[address] [facility] Comment on above: Performed By: #### C BC, [id number], T4F, ETOH, LIPID, CMP, TSH3 wRFLX #### [facility] [address] [place] [address] Platelets [#/volume] in Bloo d by Automated countOrdered By: MICHAEL GURROLA on 03-25-2025 Platelets (Bld) [#/Vol] 261 10*3/uL 150-[address] [facility] Comment on above: Performed By: #### C BC, [id number], T4F, ETOH, LIPID, CMP, TSH3 wRFLX #### [facility] [address] [place] [address] [place] 03-24-2025 L ----- Specimen: [id number] Received: 03/25/25 Status: JOANNA Kimmy Num: [id number] Spec Type: Surgical Subm Dr: MICHAEL GURROLA MD Tissues: A Ovary - Cyst, Non-Neoplastic (RIGHT OVARY) Procedures: HE/3, Gross/Micro L4 Age/ Patient Sex Location Account Attending Physician Barbra Claros T 29/F 3S [id number] MICHAEL GURROLA MD SPEC NUM: [id number] RECD: 03/25/25 STATUS: JOANNA MORAES NUM: [id number] ABRAHAN: 03/24/[address] [facility] [address]: MICHAEL GURROLA MD ENTERED: 03/25/[address] [facility] [address]: JENNY TYPE: Surgical DEPT: S ENTERED BY: [id number] RECV BY: [id number] ORDERED: HE/3, Gross/Micro L4 ORDERED: HE/3, Gross/Micro L4 Pathological Diagnosis Right ovary: - Hemorrhagic corpus luteal cyst and physiologic cysts. Clinical Information Ovarian cyst Gross Description Part A is received in formalin labeled with the patients date of , and Joel Claros ovary is a 12.9 g, cystic and disrupted ovary, 3.7 x 3 x 2 cm. The capsular surface is mitchell-pink to yellow, ranging from smooth and glistening to bosselated with a 1.5 cm in greatest dimension transmural defect. The capsular surface is inked black. Serial sections reveal peripheral, smooth lined cysts, 1.5 cm in greatest dimension. The largest cyst is disrupted, while the remaining cyst are filled with a mitchell-pink, watery material. The remaining ovarian parenchyma is lizama-pink to yellow with focal simple cysts. No papillations are identified. [employer] sections are submitted in A1?A3. (3, ss, [id number] A) Microscopic Description Microscopic examination was completed. Specimen: [id number] Received: 03/25/25 Status: JOANNA Moraes Num: [id number] Spec Type: Surgical Subm Dr: MICHAEL GURROLA MD Tissues: A Ovary - Cyst, Non-Neoplastic (RIGHT OVARY) Procedures: HE/3, Gross/Micro L4 Patient: Barbra Claros [id number] (Continued) Specimen: [id number] Received: 03/25/25 (Continued) Signed (signature on file) Cristiano Mederos JR, MD 03/26/25 1046 Specimen: [id number] Received: 03/25/25 Status: JOANNA Moraes Num: [id number] Spec Type: Surgical Subm Dr: MICHAEL GURROLA MD Tissues: A Ovary - Cyst, Non-Neoplastic (RIGHT OVARY) Procedures: HE/3, Gross/Micro L4 Patient: Barbra Claros [id number] (Continued) Specimen: [id number] Received: 03/25/25 (Continued) CPT Codes 35961 Specimen: [id number] Received: 03/25/25 Status: JOANNA Moraes Num: [id number] Spec Type: Surgical Subm Dr: MICHAEL GURROLA MD Tissues: A Ovary - Cyst, Non-Neoplastic (RIGHT OVARY) Procedures: HE/3, Gross/Micro L4 Patient: GonsaloBarbra Dumas [id number] (Continued) Signed (signature on file) Cristiano Mederos JR, MD 03/26/25 1046 Normal [facility] COVID CepheidOrdered By: Quin Cruz on 02-24-2025 SARS-CoV-2 (COVID-19) RNA MARICEL+probe Ql (Unsp spec) Negative [facility] No Panel InformationOrdered By: Fe Cruz on 02-24-2025 POC Influenza A (PCR) Negative [facility] POC Influenza B (PCR) Negative [facility] Laboratory - Chemistry and C hemistry - challengeOrdered By: Fe Cruz on 02-08-2025 Bilirubin Ql (U) Negative [place] Glucose (U) [Mass/Vol] Negative [facility] Ketones Ql (U) Negative [facility] pH (U) 7.5 [pH] [facility] Specific gravity (U) [Rel density] 1.[address] [facility] Urobilinogen (U) [Mass/Vol] 0.2 mg/dL [facility] Laboratory - Specimen inform ationOrdered By: Fe Cruz on 02-08-2025 Appearance (U) dark [facility] Color (U) yellow [facility] Laboratory - UrinalysisOrder ed By: Fe Cruz on 02-08-2025 Leukocyte esterase Test strip Ql (U) Negative [facility] Nitrite Ql (U) Negative [facility] Protein Ql (U) Negative [facility] No Panel InformationOrdered By: Fe Cruz on 02-08-2025 COVID Antigen (POC) [facility] Quick Strep (POC) [facility] Urine Occult Blood trace-intact [facility] Urine Cultureon 02-08-2025 Bacteria identified Cx Nom (U) ORGANISM: Strep agalactiae - (group b) (O:STRAGA) [place] Count 25,000 PERFORMED BY: [place] [address] PATHOLOGIST TIME STUDY ANALYST AMBER HENNING M.D. Normal [facility] Comment on above: Performed By: #### C BC, [id number], T4F, ETOH, LIPID, CMP, TSH3 wRFLX #### [facility] [address] [place] [address] [place] Urine cultureOrdered By: Quin Cruz on 02-08-2025 Bacteria identified Cx Nom (U) Strep agalactiae - (group b) Abnormal [facility] ECG 12 lead ECGon 01-23-2025 ECG 12 lead ECG [facility] [address] [place] [address] [place] [address] Electrocardiograph Report Signed Patient: Barbra Claros MR#: [id number] : 1995 Acct:[id number] Age/Sex: 29 / F ADM Date: 01/22/25 Loc: Room: [address] [place] [address] Type: ADM IN Attending Dr: Dashawn Moreno [...] rhythm Normal ECG Confirmed by Rhoda Herring ([id number]) on 01/23/2025 11:22:11 AM Referred By: Electronically Signed By: Rhoda Herring Transcribed By: MUS Signed By Rhoda Herring MD 5 1122 Normal [facility] Alanine aminotransferase [En zymatic activity/volume] in Serum or PlasmaOrdered By: Duane Simons on 01-22-2025 ALT [Catalytic activity/Vol] 14 U/L Normal 7-[address] [facility] Comment on above: Performed By: #### C BC, [id number], T4F, ETOH, LIPID, CMP, TSH3 wRFLX #### [facility] [address] [place] [address] [place] Albumin [Mass/volume] in Ser um or Plasma by Bromocresol green (BCG) dye binding methoOrdered By: Duane Simons on 01-22-2025 Albumin BCG dye [Mass/Vol] 4.1 g/dL 3.5-5.[address] [facility] Alkaline phosphatase [Enzyma tic activity/volume] in Serum or PlasmaOrdered By: Duane Simons on 01-22-2025 ALP [Catalytic activity/Vol] 61 U/L Normal 34-[address] [facility] Comment on above: Performed By: #### C BC, [id number], T4F, ETOH, LIPID, CMP, TSH3 wRFLX #### [facility] [address] [place] [address] [place] Amphetamine Screen Ql (U)Ord ered By: Duane Simons on 01-22-2025 Amphetamines Ql (U) Negative Negative [facility] Appearance of UrineOrdered B y: Duane Simons on 01-22-2025 Appearance (U) Clear Normal Clear [facility] Comment on above: Order Comment: Name Collection Type:: Clean-Voided Midstream Performed By: #### C BC, [id number], T4F, ETOH, LIPID, CMP, TSH3 wRFLX #### [facility] [address] [place] [address] [place] Aspartate aminotransferase [ Enzymatic activity/volume] in Serum or PlasmaOrdered By: Duane Simons on 01-22-2025 AST [Catalytic activity/Vol] 15 U/L Normal 13-[address] [facility] Comment on above: Performed By: #### C BC, [id number], T4F, ETOH, LIPID, CMP, TSH3 wRFLX #### [facility] [address] [place] [address] [place] Bacteria [Presence] in Urine by AutomatedOrdered By: Duane Simons on 01-22-2025 Bacteria Auto Ql (U) Rare [HPF] None Seen [facility] Barbiturates [Presence] in U rine by Screen methodOrdered By: Duane Simons on 01-22-2025 Barbiturates Screen Ql (U) Negative Negative [facility] Basophils [#/volume] in Bloo d by Automated countOrdered By: Duane Simons on 01-22-2025 Basophils (Bld) [#/Vol] 0.0 10*3/uL Normal 0.0-0.[address] [facility] Comment on above: Result Comment: PERF ORMED BY: [facility] [address] [place] [address] PATHOLOGIST TIME STUDY ANALYST AMBER HENNING M.D. Performed By: #### C BC, [id number], T4F, ETOH, LIPID, CMP, TSH3 wRFLX #### [facility] [address] [place] [address] [place] Basophils/100 leukocytes in Blood by Automated countOrdered By: Duane Simons on 01-22-2025 Basophils/100 WBC (Bld) 0.3 % Normal . [facility] Comment on above: Performed By: #### C BC, [id number], T4F, ETOH, LIPID, CMP, TSH3 wRFLX #### [facility] [address] Benzodiazepines Screen Ql (U )Ordered By: Duane Simons on 01-22-2025 Benzodiazepines Ql (U) Negative Negative [facility] Benzoylecgonine [Presence] i n Urine by Screen methodOrdered By: Duane Simons on 01-22-2025 Benzoylecgonine Screen Ql (U) Negative Negative [facility] Bilirubin Test strip Ql (U)O rdered By: Duane Simons on 01-22-2025 Bilirubin Ql (U) Negative Negative [place] Bilirubin.total [Mass/volume ] in Serum or PlasmaOrdered By: Duane Simons on 01-22-2025 Bilirubin [Mass/Vol] 0.2 mg/dL Low 0.3-1.0 [facility] Comment on above: Performed By: #### C BC, [id number], T4F, ETOH, LIPID, CMP, TSH3 wRFLX #### [address] Calcium [Mass/volume] in Ser um or PlasmaOrdered By: Duane Simons on 01-22-2025 Calcium [Mass/Vol] 8.8 mg/dL Normal 8.6-10.3 [facility] Comment on above: Performed By: #### C BC, [id number], T4F, ETOH, LIPID, CMP, TSH3 wRFLX #### [address] Cannabinoids [Presence] in U rine by Screen methodOrdered By: Duane Simons on 01-22-2025 Cannabinoids Screen Ql (U) Positive High Negative [facility] Comment on above: These are unconfirme d results and should not be used for legal purposes. Drug Cut-Off Concentration: AMPH 1000 ng/mL FIONA 200 ng/mL KIMMY 200 ng/mL COCM 300 ng/mL OP 300 ng/mL PCP 25 ng/mL THC 20 ng/mL Carbon dioxide, total [Moles /volume] in Serum or PlasmaOrdered By: Duane Simons on 01-22-2025 CO2 [Moles/Vol] 31.1 mmol/L High 21.0-31.0 [place] Comment on above: Performed By: #### C BC, [id number], T4F, ETOH, LIPID, CMP, TSH3 wRFLX #### [address] Chloride [Moles/volume] in S karla or PlasmaOrdered By: Duane Simons on 01-22-2025 Chloride [Moles/Vol] 102 mmol/L Normal 98-107 [facility] Comment on above: Performed By: #### C BC, [id number], T4F, ETOH, LIPID, CMP, TSH3 wRFLX #### [address] Color of Urine by AutoOrdere d By: Duane Simons on 01-22-2025 Color (U) Yellow Normal Yellow [facility] Comment on above: Order Comment: Name Collection Type:: Clean-Voided Midstream Performed By: #### C BC, [id number], T4F, ETOH, LIPID, CMP, TSH3 wRFLX #### [address] Complete Blood Count Auto Di ffon 01-22-2025 Mean Corpuscular HGB Conc 33.8 g/dL Normal 32.0-35.0 [facility] Comment on above: Performed By: #### C BC, [id number], T4F, ETOH, LIPID, CMP, TSH3 wRFLX #### [place] [address] [place] Monocytes/100 WBC (Bld) 16.85 % Normal 0.00-20.00 [facility] Comment on above: Performed By: #### C BC, [id number], T4F, ETOH, LIPID, CMP, TSH3 wRFLX #### [place] [address] [place] NRBC% 0.3 /100{WBC} Normal 0-0.5 [facility] Comment on above: Performed By: #### C BC, [id number], T4F, ETOH, LIPID, CMP, TSH3 wRFLX #### [address] White Blood Count 6.0 [CFU]/mL Normal 3.8-11.[address] [facility] Comment on above: Performed By: #### C BC, [id number], T4F, ETOH, LIPID, CMP, TSH3 wRFLX #### [address] Comprehensive Metabolic Pane [place] 01-22-2025 Albumin [Mass/Vol] 4.1 g/dL Normal 3.5-5.7 [facility] Comment on above: Performed By: #### C BC, [id number], T4F, ETOH, LIPID, CMP, TSH3 wRFLX #### [address] Creatinine Clr Calc Pharmacy 114.47 Normal [facility] Comment on above: Result Comment: PERF ORMED BY: [place] [address] PATHOLOGIST TIME STUDY ANALYST AMBER HENNING M.D. Performed By: #### C BC, [id number], T4F, ETOH, LIPID, CMP, TSH3 wRFLX #### [address] GFR/1.73 sq M.predicted MDRD (S/P/Bld) [Vol rate/Area] mL/min/{1.73_m2} Normal [facility] Comment on above: Performed By: #### C BC, [id number], T4F, ETOH, LIPID, CMP, TSH3 wRFLX #### [address] Creatinine [Mass/volume] in Serum or PlasmaOrdered By: Duane Simons on 01-22-2025 Creatinine [Mass/Vol] 0.74 mg/dL Normal 0.60-1.20 [facility] Comment on above: Performed By: #### C BC, [id number], T4F, ETOH, LIPID, CMP, TSH3 wRFLX #### [facility] [address] Dipstick and Microscopicon 0 - Bacteria,Urine Rare Normal None Seen [facility] Comment on above: Order Comment: Name Collection Type:: Clean-Voided Midstream Performed By: #### C BC, [id number], T4F, ETOH, LIPID, CMP, TSH3 wRFLX #### [facility] [address] Bilirubin,Urine Negative Normal Negative [facility] Comment on above: Order Comment: Name Collection Type:: Clean-Voided Midstream Performed By: #### C BC, [id number], T4F, ETOH, LIPID, CMP, TSH3 wRFLX #### [address] Glucose Ql (U) Normal Normal Normal [facility] Comment on above: Order Comment: Name Collection Type:: Clean-Voided Midstream Performed By: #### C BC, [id number], T4F, ETOH, LIPID, CMP, TSH3 wRFLX #### [address] Hyaline Casts,Urine None Normal 0-8 [facility] Comment on above: Order Comment: Name Collection Type:: Clean-Voided Midstream Performed By: #### C BC, [id number], T4F, ETOH, LIPID, CMP, TSH3 wRFLX #### [address] Mucus,Urine 2+ [LPF] Critically abnormal [facility] Comment on above: Order Comment: Name Collection Type:: Clean-Voided Midstream Performed By: #### C BC, [id number], T4F, ETOH, LIPID, CMP, TSH3 wRFLX #### [place] [address] [place] Nitrite,Urine Negative Normal Negative [facility] Comment on above: Order Comment: Name Collection Type:: Clean-Voided Midstream Performed By: #### C BC, [id number], T4F, ETOH, LIPID, CMP, TSH3 wRFLX #### [address] Occult Blood,Urine Negative Normal Negative [facility] Comment on above: Order Comment: Name Collection Type:: Clean-Voided Midstream Performed By: #### C BC, [id number], T4F, ETOH, LIPID, CMP, TSH3 wRFLX #### [address] RBC,Urine 1-2 Normal 0-4 [facility] Comment on above: Order Comment: Name Collection Type:: Clean-Voided Midstream Performed By: #### C BC, [id number], T4F, ETOH, LIPID, CMP, TSH3 wRFLX #### [address] Specificy [place],Urine 1.033 High 1.001-1.030 [facility] Comment on above: Order Comment: Name Collection Type:: Clean-Voided Midstream Performed By: #### C BC, [id number], T4F, ETOH, LIPID, CMP, TSH3 wRFLX #### [address] Squamous Epithelial Cell,Urine 1-2 Normal 0-2 [facility] Comment on above: Order Comment: Name Collection Type:: Clean-Voided Midstream Performed By: #### C BC, [id number], T4F, ETOH, LIPID, CMP, TSH3 wRFLX #### [address] Urobilinogen,Urine Normal Normal Normal [facility] Comment on above: Order Comment: Name Collection Type:: Clean-Voided Midstream Performed By: #### C BC, [id number], T4F, ETOH, LIPID, CMP, TSH3 wRFLX #### [address] WBC,Urine 1-2 Normal 0-4 [facility] Comment on above: Order Comment: Name Collection Type:: Clean-Voided Midstream Performed By: #### C BC, [id number], T4F, ETOH, LIPID, CMP, TSH3 wRFLX #### [address] Drug Screen,Urineon 01-23-20 25 Amphetamine Screen,Urine Negative Normal Negative [facility] Comment on above: Performed By: #### C BC, [id number], T4F, ETOH, LIPID, CMP, TSH3 wRFLX #### [address] Barbiturate Screen,Urine Negative Normal Negative [facility] Comment on above: Performed By: #### C BC, [id number], T4F, ETOH, LIPID, CMP, TSH3 wRFLX #### [address] Benzodiazepines Screen,Urine Negative Normal Negative [facility] Comment on above: Performed By: #### C BC, [id number], T4F, ETOH, LIPID, CMP, TSH3 wRFLX #### [address] Cannabinoid Screen,Urine Positive Normal Negative [facility] Comment on above: Result Comment: Thes e are unconfirmed results and should not be used for legal purposes. Drug Cut-Off Concentration: AMPH 1000 ng/mL FIONA 200 ng/mL KIMMY 200 ng/mL COCM 300 ng/mL OP 300 ng/mL PCP 25 ng/mL THC 20 ng/mL PERFORMED BY: [place] [address] PATHOLOGIST TIME STUDY ANALYST AMBER HENNING M.D. Performed By: #### C BC, [id number], T4F, ETOH, LIPID, CMP, TSH3 wRFLX #### [address] Cocaine Screen,Urine Negative Normal Negative [facility] Comment on above: Performed By: #### C BC, [id number], T4F, ETOH, LIPID, CMP, TSH3 wRFLX #### [address] Opiate Screen,Urine Negative Normal Negative [facility] Comment on above: Performed By: #### C BC, [id number], T4F, ETOH, LIPID, CMP, TSH3 wRFLX #### [facility] [address] Phencyclidine Screen,Urine Negative Normal Negative [facility] Comment on above: Performed By: #### C BC, [id number], T4F, ETOH, LIPID, CMP, TSH3 wRFLX #### [address] Eosinophils [#/volume] in Bl ood by Automated countOrdered By: Duane Simons on 01-22-2025 Eosinophils (Bld) [#/Vol] 0.0 10*3/uL Normal 0.0-0.[address] [facility] Comment on above: Performed By: #### C BC, [id number], T4F, ETOH, LIPID, CMP, TSH3 wRFLX #### [place] [address] [place] Eosinophils/100 leukocytes i n Blood by Automated countOrdered By: Duane Simons on 01-22-2025 Eosinophils/100 WBC (Bld) 0.1 % Normal . [facility] Comment on above: Performed By: #### C BC, [id number], T4F, ETOH, LIPID, CMP, TSH3 wRFLX #### [address] Epithelial cells.squamous [# /area] in Urine sediment by Automated countOrdered By: Duane Simons on 01-22-2025 Epithelial cells.squamous Auto (Urine sed) [#/Area] 1-2 [HPF] 0-[address] [facility] Erythrocyte distribution wid th [Ratio] by Automated countOrdered By: Duane Simons on 01-22-2025 Erythrocyte distribution width (RBC) [Ratio] 13.5 % Normal 11.9-15.[address] [facility] Comment on above: Performed By: #### C BC, [id number], T4F, ETOH, LIPID, CMP, TSH3 wRFLX #### [address] Erythrocytes [#/area] in Uri ne sediment by Automated countOrdered By: Duane Simons on 01-22-2025 RBC Auto (Urine sed) [#/Area] 1-2 [HPF] 0-[address] [facility] Erythrocytes [#/volume] in B lood by Automated countOrdered By: Duane Simons on 01-22-2025 RBC (Bld) [#/Vol] 3.93 10*6/uL Normal 3.60-5.00 [facility] Comment on above: Performed By: #### C BC, [id number], T4F, ETOH, LIPID, CMP, TSH3 wRFLX #### [facility] [address] Ethanol [Mass/volume] in Ser um or PlasmaOrdered By: Duane Simons on 01-22-2025 Ethanol [Mass/Vol] mg/dL Normal [facility] Comment on above: Performed By: #### C BC, [id number], T4F, ETOH, LIPID, CMP, TSH3 wRFLX #### [facility] [address] [place] [address] Ethyl Alcohol Profileon Percent Ethanol Not performed Normal [facility] Comment on above: Result Comment: PERF ORMED BY: [place] [address] PATHOLOGIST TIME STUDY ANALYST AMBER HENNING M.D. Performed By: #### C BC, [id number], T4F, ETOH, LIPID, CMP, TSH3 wRFLX #### [facility] [address] [place] [address] Glucose [Mass/volume] in Ser um or PlasmaOrdered By: Duane Simons on 01-22-2025 Glucose [Mass/Vol] 84 mg/dL Normal 70-100 [facility] Comment on above: ADA recommended refe rence rangeRandom Glucose Reference Range is dependent on time and content of last meal. Glucose of more than 200 mg/dL in a nonstressed, ambulatory subject supports the diagnosis of Diabetes Mellitus. Result Comment: [place] om Glucose Reference Range is dependent on time and content of last meal. Glucose of more than 200 mg/dL in a nonstressed, ambulatory subject supports the diagnosis of Diabetes Mellitus. ADA recommended reference range Performed By: #### C BC, [id number], T4F, ETOH, LIPID, CMP, TSH3 wRFLX #### [facility] [address] [place] [address] Glucose [Mass/volume] in Uri ne by Test stripOrdered By: Duane Simons on 01-22-2025 Glucose Test strip (U) [Mass/Vol] Normal mg/dL Normal [facility] HCG ( test) [place].rapi d Ql (U)Ordered By: Duane Simons on 01-22-2025 HCG ( test) Ql (U) Negative [facility] HCG,Urineon 01-22-2025 Beta HCG ( test) Ql (U) Negative Normal [facility] Comment on above: Order Comment: Name Collection Type:: Clean-Voided Midstream Result Comment: PERF ORMED BY: [place] [address] PATHOLOGIST TIME STUDY ANALYST AMBER HENNING M.D. Performed By: #### C BC, [id number], T4F, ETOH, LIPID, CMP, TSH3 wRFLX #### [address] Hematocrit [Volume Fraction] of Blood by Automated countOrdered By: Duane Simons on 01-22-2025 Hematocrit (Bld) [Volume fraction] 34.0 % Normal 34.0-46.[address] [facility] Comment on above: Performed By: #### C BC, [id number], T4F, ETOH, LIPID, CMP, TSH3 wRFLX #### [address] Hemoglobin Test strip Ql (U) Ordered By: Duane Simons on 01-22-2025 Hemoglobin Ql (U) Negative Negative [facility] Hemoglobin [Mass/volume] in BloodOrdered By: Duane Simons on 01-22-2025 Hemoglobin (Bld) [Mass/Vol] 11.5 g/dL Low 11.8-15.[address] [facility] Comment on above: Performed By: #### C BC, [id number], T4F, ETOH, LIPID, CMP, TSH3 wRFLX #### [facility] [address] [place] [address] [place] Hyaline casts [#/area] in Ur ine sediment by Automated countOrdered By: Duane Simons on 01-22-2025 Hyaline casts Auto (Urine sed) [#/Area] None [LPF] 0-[address] [facility] Ketones [Presence] in Urine by Test stripOrdered By: Duane Simons on 01-22-2025 Ketones Ql (U) Negative Normal Negative [facility] Comment on above: Order Comment: Name Collection Type:: Clean-Voided Midstream Performed By: #### C BC, [id number], T4F, ETOH, LIPID, CMP, TSH3 wRFLX #### [facility] [address] [place] [address] Leukocyte esterase [Presence ] in Urine by Test stripOrdered By: Duane Simons on 01-22-2025 Leukocyte esterase Test strip Ql (U) Negative Normal Negative [facility] Comment on above: Order Comment: Name Collection Type:: Clean-Voided Midstream Performed By: #### C BC, [id number], T4F, ETOH, LIPID, CMP, TSH3 wRFLX #### [facility] [address] [place] [address] [place] Leukocytes [#/area] in Urine sediment by Automated countOrdered By: Duane Simons on 01-22-2025 WBC Auto (Urine sed) [#/Area] 1-2 [HPF] 0-[address] [facility] Leukocytes [#/volume] correc arminda for nucleated erythrocytes in Blood by Automated counOrdered By: Duane Simons on 01-22-2025 WBC corrected for nucl RBC Auto (Bld) [#/Vol] 6.0 10*3/uL 3.8-11.[address] [facility] Leukocytes [#/volume] in Blo od by Automated countOrdered By: Duane Simons on 01-22-2025 WBC (Bld) [#/Vol] 6.0 10*3/uL Normal 3.8-11.6 [facility] Comment on above: Performed By: #### C BC, [id number], T4F, ETOH, LIPID, CMP, TSH3 wRFLX #### [facility] [address] [place] [address] [facility] Lipid Panelon 01-22-2025 Cholesterol [Mass/Vol] 204 mg/dL High 140-200 [facility] Comment on above: Result Comment: Chol less than 200 mg/dl low risk Chol 201-239 mg/dl borderline risk Chol 240 mg/dl and greater high risk Performed By: #### V [id number], TSH3 wRFLX, LIPID #### [facility] [address] [place] [id number] [place] Cholesterol in HDL [Mass/Vol] 66 mg/dL Normal 23-92 [facility] Comment on above: Result Comment: HDL CHOL ATP-III CLASSIFICATION Cardiovascular Risk HDL > or equal to 60 mg/dL LOW HDL < 40 mg/dL HIGH Performed By: #### V [id number], TSH3 wRFLX, LIPID #### [facility] [address] [place] [id number] [place] Cholesterol.total/Cho lesterol in HDL [Mass ratio] 3.1 {ratio} Normal <5.0 [facility] Comment on above: Performed By: #### V [id number], TSH3 wRFLX, LIPID #### [facility] [address] [place] [id number] [place] LDL Cholesterol,Calculate d 125 mg/dL High 0-100 [facility] Comment on above: Result Comment: LDL ATP III CLASSIFICATION LDL less than 100 mg/dL Optimal LDL 100-129 mg/dL Near or above optimal LDL 130-159 mg/dL Borderline high LDL 160-189 mg/dL High LDL greater than 189 mg/dL Very high Performed By: #### V [id number], TSH3 wRFLX, LIPID #### [facility] [address] [place] [id number] [place] Triglyceride w/Reflex 65 mg/dL Normal 0-149 [facility] Comment on above: Result Comment: TRIG ATP III CLASSIFICATION TRIG less than 150 mg/dL Normal TRIG 150-199 mg/dL Borderline high TRIG 200-500 mg/dL High TRIG greater than 500 mg/dL Very high Standard traceable to the Center for Disease Conrtrol and Prevention (CDC) test method. Performed By: #### V [id number], TSH3 wRFLX, LIPID #### [facility] [address] VLDL CHOLESTEROL 13 mg/dL Normal [facility] Comment on above: Performed By: #### V [id number], TSH3 wRFLX, LIPID #### [facility] [address] Lymphocytes [#/volume] in Bl ood by Automated countOrdered By: Duane Simons on 01-22-2025 Lymphocytes (Bld) [#/Vol] 1.8 10*3/uL Normal 1.00-4.[address] [facility] Comment on above: Performed By: #### C BC, [id number], T4F, ETOH, LIPID, CMP, TSH3 wRFLX #### [address] Lymphocytes/100 leukocytes i n Blood by Automated countOrdered By: Duane Simons on 01-22-2025 Lymphocytes/100 WBC (Bld) 29.9 % Normal . [facility] Comment on above: Performed By: #### C BC, [id number], T4F, ETOH, LIPID, CMP, TSH3 wRFLX #### [address] MCH [Entitic mass] by Automa arminda countOrdered By: Duane Simons on 01-22-2025 MCH (RBC) [Entitic mass] 29.2 pg Normal 24.7-34.[address] [facility] Comment on above: Performed By: #### C BC, [id number], T4F, ETOH, LIPID, CMP, TSH3 wRFLX #### [address] MCHC Auto (RBC) [Mass/Vol]Or dered By: Duane Simons on 01-22-2025 MCHC (RBC) [Mass/Vol] 33.8 g/dL 32.0-35.0 [facility] MCV [Entitic volume] by Auto mated countOrdered By: Duane Simons on 01-22-2025 MCV (RBC) [Entitic vol] 86.6 fL Normal 80-[address] [facility] Comment on above: Performed By: #### C BC, [id number], T4F, ETOH, LIPID, CMP, TSH3 wRFLX #### [place] [address] [place] Monocyte distribution width [Entitic volume] in Blood by AutomatedOrdered By: Duane Simons on 01-22-2025 Monocyte distribution width Auto (Bld) [Entitic vol] 16.85 % 0.00-20.[address] [facility] Monocytes [#/volume] in Bloo d by Automated countOrdered By: Duane Simons on 01-22-2025 Monocytes (Bld) [#/Vol] 0.5 10*3/uL Normal 0.0-0.[address] [facility] Comment on above: Performed By: #### C BC, [id number], T4F, ETOH, LIPID, CMP, TSH3 wRFLX #### [place] [address] [place] Monocytes/100 leukocytes in Blood by Automated countOrdered By: Duane Simons on 01-22-2025 Monocytes/100 WBC (Bld) 8.6 % Normal . [facility] Comment on above: Performed By: #### C BC, [id number], T4F, ETOH, LIPID, CMP, TSH3 wRFLX #### [address] Mucus [Presence] in Urine by AutomatedOrdered By: Duane Simons on 01-22-2025 Mucus Auto Ql (U) 2+ [LPF] Abnormal [facility] Neutrophils [#/volume] in Bl ood by Automated countOrdered By: Duane Simons on 01-22-2025 Neutrophils (Bld) [#/Vol] 3.7 10*3/uL Normal 1.8-7.[address] [facility] Comment on above: Performed By: #### C BC, [id number], T4F, ETOH, LIPID, CMP, TSH3 wRFLX #### [place] [address] [place] Neutrophils/100 leukocytes i n Blood by Automated countOrdered By: Duane Simons on 01-22-2025 Neutrophils/100 WBC (Bld) 61.1 % Normal . [facility] Comment on above: Performed By: #### C BC, [id number], T4F, ETOH, LIPID, CMP, TSH3 wRFLX #### [facility] [address] Nitrite Test strip Ql (U)Ord ered By: Duane Simons on 01-22-2025 Nitrite Ql (U) Negative Negative [facility] No Panel InformationOrdered By: Duane Simons on 01-22-2025 Estimated GFR (CKD-EPI) > 60.0 mL/Min [facility] Creatinine Clearance (Chem 114.[address] [facility] Nucleated erythrocytes [Pres ence] in Blood by Automated countOrdered By: Duane Simons on 01-22-2025 Nucleated RBC Auto Ql (Bld) 0.3 /100{WBC} 0-0.[address] [facility] Opiates [Presence] in Urine by Screen methodOrdered By: Duane Simons on 01-22-2025 Opiates Screen Ql (U) Negative Negative [facility] Phencyclidine Screen Ql (U)O rdered By: Duane Simons on 01-22-2025 Phencyclidine Ql (U) Negative Negative [facility] Platelet mean volume [Entiti c volume] in Blood by Automated countOrdered By: Duane Simons on 01-22-2025 Platelet mean volume (Bld) [Entitic vol] 7.2 fL Normal 6.3-10.[address] [facility] Comment on above: Performed By: #### C BC, [id number], T4F, ETOH, LIPID, CMP, TSH3 wRFLX #### [facility] [address] [place] [address] [place] Platelets [#/volume] in Bloo d by Automated countOrdered By: Duane Simons on 01-22-2025 Platelets (Bld) [#/Vol] 231 10*3/uL Normal 150-[address] [facility] Comment on above: Performed By: #### C BC, [id number], T4F, ETOH, LIPID, CMP, TSH3 wRFLX #### [facility] [address] [place] [address] Potassium [Moles/volume] in Serum or PlasmaOrdered By: Duane Simons on 01-22-2025 Potassium [Moles/Vol] 4.2 mmol/L Normal 3.5-5.1 [facility] Comment on above: Performed By: #### C BC, [id number], T4F, ETOH, LIPID, CMP, TSH3 wRFLX #### [facility] [address] [place] [address] Protein [Mass/volume] in Ser um or PlasmaOrdered By: Duane Simons on 01-22-2025 Protein [Mass/Vol] 6.9 g/dL Normal 6.4-8.9 [facility] Comment on above: Performed By: #### C BC, [id number], T4F, ETOH, LIPID, CMP, TSH3 wRFLX #### [address] Protein [Mass/volume] in Uri ne by Test stripOrdered By: Duane Simons on 01-22-2025 Protein (U) [Mass/Vol] 20 mg/dL Normal Negative [facility] Comment on above: Order Comment: Name Collection Type:: Clean-Voided Midstream Performed By: #### C BC, [id number], T4F, ETOH, LIPID, CMP, TSH3 wRFLX #### [address] Serum globulin measurement b y calculation (mass/volume)Ordered By: Duane Simons on 01-22-2025 Globulin (S) [Mass/Vol] 2.8 g/dL [facility] Comment on above: Performed By: #### C BC, [id number], T4F, ETOH, LIPID, CMP, TSH3 wRFLX #### [address] Serum or plasma albumin/glob ulin mass ratioOrdered By: Duane Simons on 01-22-2025 Albumin/Globulin [Mass ratio] 1.5 {ratio} [facility] Comment on above: Performed By: #### C BC, [id number], T4F, ETOH, LIPID, CMP, TSH3 wRFLX #### [facility] [address] Serum or plasma anion gap de terminationOrdered By: Duane Simons on 01-22-2025 Anion gap [Moles/Vol] 8.1 mmol/L Normal 6.0-15.0 [facility] Comment on above: Performed By: #### C BC, [id number], T4F, ETOH, LIPID, CMP, TSH3 wRFLX #### [facility] [address] Serum or plasma ethanol alayna urement (mass/volume)Ordered By: Duane Simons on 01-22-2025 Ethanol [Mass/Vol] TNP [facility] Comment on above: Test not performed Sodium [Moles/volume] in Ser um or PlasmaOrdered By: Duane Simons on 01-22-2025 Sodium [Moles/Vol] 137 mmol/L Normal 136-145 [facility] Comment on above: Performed By: #### C BC, [id number], T4F, ETOH, LIPID, CMP, TSH3 wRFLX #### [address] Specific gravity Test strip (U) [Rel density]Ordered By: Duane Simons on 01-22-2025 Specific gravity (U) [Rel density] 1.033 High 1.001-1.[address] [facility] Thyroid Stim Hormone w/Rflxo n 01-22-2025 Thyroid Stim Hormone w/Rflx 0.94 u[iU]/mL Normal 0.45-5.33 [facility] Comment on above: Performed By: #### V [id number], TSH3 wRFLX, LIPID #### [facility] [address] Urea nitrogen [Mass/volume] in Serum or PlasmaOrdered By: Duane Simons on 01-22-2025 Urea nitrogen [Mass/Vol] 11 mg/dL Normal 7-[address] [facility] Comment on above: Performed By: #### C BC, [id number], T4F, ETOH, LIPID, CMP, TSH3 wRFLX #### [place] [id number] [facility] Urobilinogen Test strip (U) [Mass/Vol]Ordered By: Duane Simons on 01-22-2025 Urobilinogen (U) [Mass/Vol] Normal mg/dL Normal [facility] Vitamin D 25 Hydroxy Totalon 01-22-2025 Vitamin D 25 Hydroxy Total 14.1 ng/mL Low 30-100 [facility] Comment on above: Result Comment: CEM MIN D STATUS 25(OH)VITAMIN D RANGE (ng/mL) Deficient <20 Insufficient 20 to <30 Sufficient 30 to 100 Reference: Malou MF,Roly NC, Kassidy SHAH, et al. Evaluation,treatment, and prevention of vitamin D deficiency; an Endocrine Society clinical practice guideline. JCEM. 2010; 96(7):1911-30. PERFORMED BY: [place] [address] PATHOLOGIST TIME STUDY ANALYST AMBER HENNING M.D. Performed By: #### V [id number], TSH3 wRFLX, LIPID #### [address] pH of Urine by Test stripOrd ered By: Duane Simons on 01-22-2025 pH (U) 6.5 [pH] Normal 5.0-9.[address] [facility] Comment on above: Order Comment: Name Collection Type:: Clean-Voided Midstream Performed By: #### C BC, [id number], T4F, ETOH, LIPID, CMP, TSH3 wRFLX #### [place] [id number] [facility] ECG 12 lead ECGon 12-30-2024 ECG 12 lead ECG [facility] Main [place] [address] [place] [address] Electrocardiograph Report Signed Patient: Barbra Claros MR#: [id number] : 1995 Acct:[id number] Age/Sex: 29 / F ADM Date: 12/29/24 Loc: Room: [address] [place] [address] Type: ADM IN Attending Dr: Kit Gutierrez [...] Normal sinus rhythm Confirmed by Stevan Orozco ([id number]) on 12/30/2024 6:12:06 PM Referred By: Electronically Signed By: Stevan Orozco Transcribed By: MUS Signed By Stevan Orozco MD 12/30/24 181 Normal [facility] Alanine aminotransferase [En zymatic activity/volume] in Serum or PlasmaOrdered By: Norah Sykes on 12-29-2024 ALT [Catalytic activity/Vol] 59 U/L High 7-[address] [facility] Comment on above: Performed By: #### C BC, [id number], T4F, ETOH, LIPID, CMP, TSH3 wRFLX #### [facility] [address] [place] [address] [place] Albumin [Mass/volume] in Ser um or Plasma by Bromocresol green (BCG) dye binding methoOrdered By: Norah Sykes on 12-29-2024 Albumin BCG dye [Mass/Vol] 4.0 g/dL 3.5-5.[address] [facility] Alkaline phosphatase [Enzyma tic activity/volume] in Serum or PlasmaOrdered By: Norah Sykes on 12-29-2024 ALP [Catalytic activity/Vol] 70 U/L Normal 34-[address] [facility] Comment on above: Performed By: #### C BC, [id number], T4F, ETOH, LIPID, CMP, TSH3 wRFLX #### [facility] [address] [place] [id number] [place] Amphetamine Screen Ql (U)Ord ered By: Norah Sykes on 12-29-2024 Amphetamines Ql (U) Negative Negative [facility] Appearance of UrineOrdered B y: Norah Sykes on 12-29-2024 Appearance (U) Clear Normal Clear [facility] Comment on above: Order Comment: Name Collection Type:: Clean-Voided Midstream Performed By: #### V [id number], TSH3 wRFLX, LIPID #### [facility] [address] Aspartate aminotransferase [ Enzymatic activity/volume] in Serum or PlasmaOrdered By: Norah Sykes on 12-29-2024 AST [Catalytic activity/Vol] 28 U/L Normal 13-[address] [facility] Comment on above: Performed By: #### C BC, [id number], T4F, ETOH, LIPID, CMP, TSH3 wRFLX #### [address] Bacteria [Presence] in Urine by AutomatedOrdered By: Norah Sykes on 12-29-2024 Bacteria Auto Ql (U) Rare [HPF] None Seen [facility] Barbiturates [Presence] in U rine by Screen methodOrdered By: Norah Sykes on 12-29-2024 Barbiturates Screen Ql (U) Negative Negative [facility] Basophils [#/volume] in Bloo d by Automated countOrdered By: Norah Sykes on 12-29-2024 Basophils (Bld) [#/Vol] 0.0 10*3/uL Normal 0.0-0.[address] [facility] Comment on above: Result Comment: PERF ORMED BY: [place] [address] PATHOLOGIST TIME STUDY ANALYST AMBER HENNING M.D. Performed By: #### C BC, [id number], T4F, ETOH, LIPID, CMP, TSH3 wRFLX #### [place] [address] [place] Basophils/100 leukocytes in Blood by Automated countOrdered By: Norah Sykes on 12-29-2024 Basophils/100 WBC (Bld) 0.5 % Normal . [facility] Comment on above: Performed By: #### C BC, [id number], T4F, ETOH, LIPID, CMP, TSH3 wRFLX #### [facility] [address] [place] [address] Benzodiazepines Screen Ql (U )Ordered By: Norah Sykes on 12-29-2024 Benzodiazepines Ql (U) Negative Negative [facility] Benzoylecgonine [Presence] i n Urine by Screen methodOrdered By: Norah Sykes on 12-29-2024 Benzoylecgonine Screen Ql (U) Negative Negative [facility] Bilirubin Test strip Ql (U)O rdered By: Norah Sykes on 12-29-2024 Bilirubin Ql (U) 2+ High Negative [place] Bilirubin.total [Mass/volume ] in Serum or PlasmaOrdered By: Norah Sykes on 12-29-2024 Bilirubin [Mass/Vol] 0.2 mg/dL Low 0.3-1.0 [facility] Comment on above: Performed By: #### C BC, [id number], T4F, ETOH, LIPID, CMP, TSH3 wRFLX #### [facility] [address] [place] [address] [place] Calcium [Mass/volume] in Ser um or PlasmaOrdered By: Norah Sykes on 12-29-2024 Calcium [Mass/Vol] 8.4 mg/dL Low 8.6-10.3 [facility] Comment on above: Performed By: #### C BC, [id number], T4F, ETOH, LIPID, CMP, TSH3 wRFLX #### [facility] [address] [place] [address] [place] Cannabinoids [Presence] in U rine by Screen methodOrdered By: Norah Sykes on 12-29-2024 Cannabinoids Screen Ql (U) Positive High Negative [facility] Comment on above: These are unconfirme d results and should not be used for legal purposes. Drug Cut-Off Concentration: AMPH 1000 ng/mL FIONA 200 ng/mL KIMMY 200 ng/mL COCM 300 ng/mL OP 300 ng/mL PCP 25 ng/mL THC 20 ng/mL Carbon dioxide, total [Moles /volume] in Serum or PlasmaOrdered By: Norah Sykes on 12-29-2024 CO2 [Moles/Vol] 29.6 mmol/L Normal 21.0-31.0 [place] Comment on above: Performed By: #### C BC, [id number], T4F, ETOH, LIPID, CMP, TSH3 wRFLX #### [place] [address] [place] Chloride [Moles/volume] in S karla or PlasmaOrdered By: Norah Sykes on 12-29-2024 Chloride [Moles/Vol] 107 mmol/L Normal 98-107 [facility] Comment on above: Performed By: #### C BC, [id number], T4F, ETOH, LIPID, CMP, TSH3 wRFLX #### [address] Color of Urine by AutoOrdere d By: Norah Sykes on 12-29-2024 Color (U) Light-yellow Normal Yellow [facility] Comment on above: Order Comment: Name Collection Type:: Clean-Voided Midstream Performed By: #### V [id number], TSH3 wRFLX, LIPID #### [address] Complete Blood Count Auto Di ffon 12-29-2024 Mean Corpuscular HGB Conc 33.0 g/dL Normal 32.0-35.0 [facility] Comment on above: Performed By: #### C BC, [id number], T4F, ETOH, LIPID, CMP, TSH3 wRFLX #### [place] [address] [place] Monocytes/100 WBC (Bld) 16.20 % Normal 0.00-20.00 [facility] Comment on above: Performed By: #### C BC, [id number], T4F, ETOH, LIPID, CMP, TSH3 wRFLX #### [place] [address] [place] NRBC% 0.2 /100{WBC} Normal 0-0.5 [facility] Comment on above: Performed By: #### C BC, [id number], T4F, ETOH, LIPID, CMP, TSH3 wRFLX #### [address] White Blood Count 5.6 [CFU]/mL Normal 3.8-11.[address] [facility] Comment on above: Performed By: #### C BC, [id number], T4F, ETOH, LIPID, CMP, TSH3 wRFLX #### [address] Comprehensive Metabolic Pane blaine 12-29-2024 Albumin [Mass/Vol] 4.0 g/dL Normal 3.5-5.7 [facility] Comment on above: Performed By: #### C BC, [id number], T4F, ETOH, LIPID, CMP, TSH3 wRFLX #### [address] Creatinine Clr Calc Pharmacy 118.36 Normal [facility] Comment on above: Result Comment: PERF ORMED BY: [place] [address] PATHOLOGIST TIME STUDY ANALYST AMBER HENNING M.D. Performed By: #### C BC, [id number], T4F, ETOH, LIPID, CMP, TSH3 wRFLX #### [address] GFR/1.73 sq M.predicted MDRD (S/P/Bld) [Vol rate/Area] mL/min/{1.73_m2} Normal [facility] Comment on above: Performed By: #### C BC, [id number], T4F, ETOH, LIPID, CMP, TSH3 wRFLX #### [address] Creatinine [Mass/volume] in Serum or PlasmaOrdered By: Norah Sykes on 12-29-2024 Creatinine [Mass/Vol] 0.69 mg/dL Normal 0.60-1.20 [facility] Comment on above: Performed By: #### C BC, [id number], T4F, ETOH, LIPID, CMP, TSH3 wRFLX #### [place] [address] [place] Dipstick and Microscopicon 0 12-29-2024 Bacteria,Urine Rare Normal None Seen [facility] Comment on above: Order Comment: Name Collection Type:: Clean-Voided Midstream Performed By: #### V [id number], TSH3 wRFLX, LIPID #### [facility] [address] [place] [address] [place] Bilirubin,Urine 2+ Normal Negative [facility] Comment on above: Order Comment: Name Collection Type:: Clean-Voided Midstream Performed By: #### V [id number], TSH3 wRFLX, LIPID #### [facility] [address] [place] [address] [place] Glucose Ql (U) Normal Normal Normal [facility] Comment on above: Order Comment: Name Collection Type:: Clean-Voided Midstream Performed By: #### V [id number], TSH3 wRFLX, LIPID #### [facility] [address] [place] [address] [place] Hyaline Casts,Urine None Normal 0-8 [facility] Comment on above: Order Comment: Name Collection Type:: Clean-Voided Midstream Performed By: #### V [id number], TSH3 wRFLX, LIPID #### [place] [address] [place] Mucus,Urine Rare Normal [facility] Comment on above: Order Comment: Name Collection Type:: Clean-Voided Midstream Performed By: #### V [id number], TSH3 wRFLX, LIPID #### [place] [address] [place] Nitrite,Urine Negative Normal Negative [facility] Comment on above: Order Comment: Name Collection Type:: Clean-Voided Midstream Performed By: #### V [id number], TSH3 wRFLX, LIPID #### [facility] [address] [place], [place] [id number] [place] Occult Blood,Urine Negative Normal Negative [facility] Comment on above: Order Comment: Name Collection Type:: Clean-Voided Midstream Performed By: #### V [id number], TSH3 wRFLX, LIPID #### [facility] [address] [place], [place] [id number] [place] Protein,Urine Trace Normal Negative [facility] Comment on above: Order Comment: Name Collection Type:: Clean-Voided Midstream Performed By: #### V [id number], TSH3 wRFLX, LIPID #### [facility] [address] [place] [address] [place] RBC,Urine 1-2 Normal 0-4 [facility] Comment on above: Order Comment: Name Collection Type:: Clean-Voided Midstream Performed By: #### V [id number], TSH3 wRFLX, LIPID #### [place] [address] [place] Specificy [place],Urine 1.030 Normal 1.001-1.030 [facility] Comment on above: Order Comment: Name Collection Type:: Clean-Voided Midstream Performed By: #### V [id number], TSH3 wRFLX, LIPID #### [place] [address] [place] Squamous Epithelial Cell,Urine 1-2 Normal 0-2 [facility] Comment on above: Order Comment: Name Collection Type:: Clean-Voided Midstream Performed By: #### V [id number], TSH3 wRFLX, LIPID #### [place] [address] [place] Urobilinogen,Urine 2 mg/dL Normal Normal [facility] [facility] Comment on above: Order Comment: Name Collection Type:: Clean-Voided Midstream Performed By: #### V [id number], TSH3 wRFLX, LIPID #### [facility] [address] [place] [address] [place] WBC,Urine 1-2 Normal 0-4 [facility] Comment on above: Order Comment: Name Collection Type:: Clean-Voided Midstream Performed By: #### V [id number], TSH3 wRFLX, LIPID #### [facility] [address] [place] [address] [place] Drug Screen,Urineon 12-30-19 25 Amphetamine Screen,Urine Negative Normal Negative [facility] Comment on above: Performed By: #### V [id number], TSH3 wRFLX, LIPID #### [facility] [address] [place] [address] Barbiturate Screen,Urine Negative Normal Negative [facility] Comment on above: Performed By: #### V [id number], TSH3 wRFLX, LIPID #### [address] Benzodiazepines Screen,Urine Negative Normal Negative [facility] Comment on above: Performed By: #### V [id number], TSH3 wRFLX, LIPID #### [address] Cannabinoid Screen,Urine Positive Normal Negative [facility] Comment on above: Result Comment: Thes e are unconfirmed results and should not be used for legal purposes. Drug Cut-Off Concentration: AMPH 1000 ng/mL FIONA 200 ng/mL KIMMY 200 ng/mL COCM 300 ng/mL OP 300 ng/mL PCP 25 ng/mL THC 20 ng/mL PERFORMED BY: [place] [address] PATHOLOGIST TIME STUDY ANALYST AMBER HENNING M.D. Performed By: #### V [id number], TSH3 wRFLX, LIPID #### [address] Cocaine Screen,Urine Negative Normal Negative [facility] Comment on above: Performed By: #### V [id number], TSH3 wRFLX, LIPID #### [address] Opiate Screen,Urine Negative Normal Negative [facility] Comment on above: Performed By: #### V [id number], TSH3 wRFLX, LIPID #### [address] Phencyclidine Screen,Urine Negative Normal Negative [facility] Comment on above: Performed By: #### V [id number], TSH3 wRFLX, LIPID #### [address] Eosinophils [#/volume] in Bl ood by Automated countOrdered By: Norah Sykes on 12-29-2024 Eosinophils (Bld) [#/Vol] 0.0 10*3/uL Normal 0.0-0.[address] [facility] Comment on above: Performed By: #### C BC, [id number], T4F, ETOH, LIPID, CMP, TSH3 wRFLX #### [facility] [address] Eosinophils/100 leukocytes i n Blood by Automated countOrdered By: Norah Sykes on 12-29-2024 Eosinophils/100 WBC (Bld) 0.0 % Normal . [facility] Comment on above: Performed By: #### C BC, [id number], T4F, ETOH, LIPID, CMP, TSH3 wRFLX #### [facility] [address] Epithelial cells.squamous [# /area] in Urine sediment by Automated countOrdered By: Norah Sykes on 12-29-2024 Epithelial cells.squamous Auto (Urine sed) [#/Area] 1-2 [HPF] 0-[address] [facility] Erythrocyte distribution wid th [Ratio] by Automated countOrdered By: Norah Sykes on 12-29-2024 Erythrocyte distribution width (RBC) [Ratio] 13.9 % Normal 11.9-15.[address] [facility] Comment on above: Performed By: #### C BC, [id number], T4F, ETOH, LIPID, CMP, TSH3 wRFLX #### [facility] [address] Erythrocytes [#/area] in Uri ne sediment by Automated countOrdered By: Norah Sykes on 12-29-2024 RBC Auto (Urine sed) [#/Area] 1-2 [HPF] 0-[address] [facility] Erythrocytes [#/volume] in B lood by Automated countOrdered By: Norah Sykes on 12-29-2024 RBC (Bld) [#/Vol] 3.66 10*6/uL Normal 3.60-5.00 [facility] Comment on above: Performed By: #### C BC, [id number], T4F, ETOH, LIPID, CMP, TSH3 wRFLX #### [facility] [address] Ethanol [Mass/volume] in Ser um or PlasmaOrdered By: Norah Sykes on 12-29-2024 Ethanol [Mass/Vol] mg/dL Normal [facility] Comment on above: Performed By: #### C BC, [id number], T4F, ETOH, LIPID, CMP, TSH3 wRFLX #### [facility] [address] Ethyl Alcohol Profileon 12-17 Percent Ethanol Not performed Normal [facility] Comment on above: Result Comment: PERF ORMED BY: [place] [address] PATHOLOGIST TIME STUDY ANALYST AMBER HENNING M.D. Performed By: #### C BC, [id number], T4F, ETOH, LIPID, CMP, TSH3 wRFLX #### [address] Free T4 (Free Thyroxine)on 12-29-2024 Free T4 [Mass/Vol] 0.59 ng/dL Low 0.61-1.12 [facility] Comment on above: Performed By: #### C BC, [id number], T4F, ETOH, LIPID, CMP, TSH3 wRFLX #### [facility] [address] Glucose [Mass/volume] in Ser um or PlasmaOrdered By: Norah Sykes on 12-29-2024 Glucose [Mass/Vol] 80 mg/dL Normal 70-100 [facility] Comment on above: ADA recommended refe rence rangeRandom Glucose Reference Range is dependent on time and content of last meal. Glucose of more than 200 mg/dL in a nonstressed, ambulatory subject supports the diagnosis of Diabetes Mellitus. Result Comment: [place] Glucose Reference Range is dependent on time and content of last meal. Glucose of more than 200 mg/dL in a nonstressed, ambulatory subject supports the diagnosis of Diabetes Mellitus. ADA recommended reference range Performed By: #### C BC, [id number], T4F, ETOH, LIPID, CMP, TSH3 wRFLX #### [facility] [address] [place] [address] [place] Glucose [Mass/volume] in Uri ne by Test stripOrdered By: Norah Sykes on 12-29-2024 Glucose Test strip (U) [Mass/Vol] Normal mg/dL Normal [facility] HCG ( test) IA.rapi d Ql (U)Ordered By: Norah Sykes on 12-29-2024 HCG ( test) Ql (U) Negative [facility] HCG,Urineon 12-29-2024 Beta HCG ( test) Ql (U) Negative Normal [facility] Comment on above: Order Comment: Name Collection Type:: Clean-Voided Midstream Result Comment: PERF ORMED BY: [place] [address] PATHOLOGIST TIME STUDY ANALYST AMBER HENNING M.D. Performed By: #### V [id number], TSH3 wRFLX, LIPID #### [address] Hematocrit [Volume Fraction] of Blood by Automated countOrdered By: Norah Sykes on 12-29-2024 Hematocrit (Bld) [Volume fraction] 32.3 % Low 34.0-46.[address] [facility] Comment on above: Performed By: #### C BC, [id number], T4F, ETOH, LIPID, CMP, TSH3 wRFLX #### [address] Hemoglobin Test strip Ql (U) Ordered By: Norah Sykes on 12-29-2024 Hemoglobin Ql (U) Negative Negative [facility] Hemoglobin [Mass/volume] in BloodOrdered By: Norah Sykes on 12-29-2024 Hemoglobin (Bld) [Mass/Vol] 10.6 g/dL Low 11.8-15.[address] [facility] Comment on above: Performed By: #### C BC, [id number], T4F, ETOH, LIPID, CMP, TSH3 wRFLX #### [place] [address] [place] Hyaline casts [#/area] in Ur ine sediment by Automated countOrdered By: Norah Sykes on 12-29-2024 Hyaline casts Auto (Urine sed) [#/Area] None [LPF] 0-[address] [facility] Ketones [Presence] in Urine by Test stripOrdered By: Norah Sykes on 12-29-2024 Ketones Ql (U) Negative Normal Negative [facility] Comment on above: Order Comment: Name Collection Type:: Clean-Voided Midstream Performed By: #### V [id number], TSH3 wRFLX, LIPID #### [facility] [address] [place] [address] [place] Leukocyte esterase [Presence ] in Urine by Test stripOrdered By: Norah Sykes on 12-29-2024 Leukocyte esterase Test strip Ql (U) Negative Normal Negative [facility] Comment on above: Order Comment: Name Collection Type:: Clean-Voided Midstream Performed By: #### V [id number], TSH3 wRFLX, LIPID #### [facility] [address] [place] [address] [place] Leukocytes [#/area] in Urine sediment by Automated countOrdered By: Norah Sykes on 12-29-2024 WBC Auto (Urine sed) [#/Area] 1-2 [HPF] 0-[address] [facility] Leukocytes [#/volume] correc arminda for nucleated erythrocytes in Blood by Automated counOrdered By: Norah Sykes on 12-29-2024 WBC corrected for nucl RBC Auto (Bld) [#/Vol] 5.6 10*3/uL 3.8-11.[address] [facility] Leukocytes [#/volume] in Blo od by Automated countOrdered By: Norah Sykse on 12-29-2024 WBC (Bld) [#/Vol] 5.6 10*3/uL Normal 3.8-11.6 [facility] Comment on above: Performed By: #### C BC, [id number], T4F, ETOH, LIPID, CMP, TSH3 wRFLX #### [facility] [address] Lipid Panelon 12-29-2024 Cholesterol [Mass/Vol] 199 mg/dL Normal 140-200 [facility] Comment on above: Result Comment: Chol less than 200 mg/dl low risk Chol 201-239 mg/dl borderline risk Chol 240 mg/dl and greater high risk Performed By: #### C BC, [id number], T4F, ETOH, LIPID, CMP, TSH3 wRFLX #### [facility] [address] Cholesterol in HDL [Mass/Vol] 65 mg/dL Normal 23-92 [facility] Comment on above: Result Comment: HDL CHOL ATP-III CLASSIFICATION Cardiovascular Risk HDL > or equal to 60 mg/dL LOW HDL < 40 mg/dL HIGH Performed By: #### C BC, [id number], T4F, ETOH, LIPID, CMP, TSH3 wRFLX #### [facility] [address] Cholesterol.total/Cho lesterol in HDL [Mass ratio] 3.1 {ratio} Normal <5.0 [facility] Comment on above: Performed By: #### C BC, [id number], T4F, ETOH, LIPID, CMP, TSH3 wRFLX #### [facility] [address] LDL Cholesterol,Calculate d 119 mg/dL High 0-100 [facility] Comment on above: Result Comment: LDL ATP III CLASSIFICATION LDL less than 100 mg/dL Optimal LDL 100-129 mg/dL Near or above optimal LDL 130-159 mg/dL Borderline high LDL 160-189 mg/dL High LDL greater than 189 mg/dL Very high Performed By: #### C BC, [id number], T4F, ETOH, LIPID, CMP, TSH3 wRFLX #### [facility] [address] Triglyceride w/Reflex 77 mg/dL Normal 0-149 [facility] Comment on above: Result Comment: TRIG ATP III CLASSIFICATION TRIG less than 150 mg/dL Normal TRIG 150-199 mg/dL Borderline high TRIG 200-500 mg/dL High TRIG greater than 500 mg/dL Very high Standard traceable to the Center for Disease Conrtrol and Prevention (CDC) test method. Performed By: #### C BC, [id number], T4F, ETOH, LIPID, CMP, TSH3 wRFLX #### [facility] [address] [place] [id number] [facility] VLDL CHOLESTEROL 15 mg/dL Normal [facility] Comment on above: Performed By: #### C BC, [id number], T4F, ETOH, LIPID, CMP, TSH3 wRFLX #### [facility] [address] Lymphocytes [#/volume] in Bl ood by Automated countOrdered By: Norah Sykes on 12-29-2024 Lymphocytes (Bld) [#/Vol] 2.2 10*3/uL Normal 1.00-4.[address] [facility] Comment on above: Performed By: #### C BC, [id number], T4F, ETOH, LIPID, CMP, TSH3 wRFLX #### [facility] [address] Lymphocytes/100 leukocytes i n Blood by Automated countOrdered By: Norah Sykes on 12-29-2024 Lymphocytes/100 WBC (Bld) 40.3 % Normal . [facility] Comment on above: Performed By: #### C BC, [id number], T4F, ETOH, LIPID, CMP, TSH3 wRFLX #### [address] MCH [Entitic mass] by Automa arminda countOrdered By: Norah ySkes on 12-29-2024 MCH (RBC) [Entitic mass] 29.1 pg Normal 24.7-34.[address] [facility] Comment on above: Performed By: #### C BC, [id number], T4F, ETOH, LIPID, CMP, TSH3 wRFLX #### [address] MCHC Auto (RBC) [Mass/Vol]Or dered By: Norah Sykes on 12-29-2024 MCHC (RBC) [Mass/Vol] 33.0 g/dL 32.0-35.0 [facility] MCV [Entitic volume] by Auto mated countOrdered By: Norah Sykes on 12-29-2024 MCV (RBC) [Entitic vol] 88.2 fL Normal 80-[address] [facility] Comment on above: Performed By: #### C BC, [id number], T4F, ETOH, LIPID, CMP, TSH3 wRFLX #### [place] [address] [place] Monocyte distribution width [Entitic volume] in Blood by AutomatedOrdered By: Norah Sykes on 12-29-2024 Monocyte distribution width Auto (Bld) [Entitic vol] 16.20 % 0.00-20.[address] [facility] Monocytes [#/volume] in Bloo d by Automated countOrdered By: Norah Sykes on 12-29-2024 Monocytes (Bld) [#/Vol] 0.5 10*3/uL Normal 0.0-0.[address] [facility] Comment on above: Performed By: #### C BC, [id number], T4F, ETOH, LIPID, CMP, TSH3 wRFLX #### [facility] [address] [place] [address] [place] Monocytes/100 leukocytes in Blood by Automated countOrdered By: Norah Sykes on 12-29-2024 Monocytes/100 WBC (Bld) 8.4 % Normal . [facility] Comment on above: Performed By: #### C BC, [id number], T4F, ETOH, LIPID, CMP, TSH3 wRFLX #### [facility] [address] [place] [address] [place] Mucus [Presence] in Urine by AutomatedOrdered By: Norah Sykes on 12-29-2024 Mucus Auto Ql (U) Rare [LPF] [facility] Neutrophils [#/volume] in Bl ood by Automated countOrdered By: Norah Sykes on 12-29-2024 Neutrophils (Bld) [#/Vol] 2.8 10*3/uL Normal 1.8-7.[address] [facility] Comment on above: Performed By: #### C BC, [id number], T4F, ETOH, LIPID, CMP, TSH3 wRFLX #### [facility] [address] [place] [address] [place] Neutrophils/100 leukocytes i n Blood by Automated countOrdered By: Norah Sykes on 12-29-2024 Neutrophils/100 WBC (Bld) 50.8 % Normal . [facility] Comment on above: Performed By: #### C BC, [id number], T4F, ETOH, LIPID, CMP, TSH3 wRFLX #### [facility] [address] Nitrite Test strip Ql (U)Ord ered By: Norah Sykes on 12-29-2024 Nitrite Ql (U) Negative Negative [facility] No Panel InformationOrdered By: Norah Sykes on 12-29-2024 Estimated GFR (CKD-EPI) > 60.0 mL/Min [facility] Creatinine Clearance (Chem 118.[address] [facility] Nucleated erythrocytes [Pres ence] in Blood by Automated countOrdered By: Norah Sykes on 12-29-2024 Nucleated RBC Auto Ql (Bld) 0.2 /100{WBC} 0-0.[address] [facility] Opiates [Presence] in Urine by Screen methodOrdered By: Norah Sykes on 12-29-2024 Opiates Screen Ql (U) Negative Negative [facility] Phencyclidine Screen Ql (U)O rdered By: Norah Sykes on 12-29-2024 Phencyclidine Ql (U) Negative Negative [facility] Platelet mean volume [Entiti c volume] in Blood by Automated countOrdered By: Norah Sykes on 12-29-2024 Platelet mean volume (Bld) [Entitic vol] 6.9 fL Normal 6.3-10.[address] [facility] Comment on above: Performed By: #### C BC, [id number], T4F, ETOH, LIPID, CMP, TSH3 wRFLX #### [facility] [address] [place] [address] [place] Platelets [#/volume] in Bloo d by Automated countOrdered By: Norah Sykes on 12-29-2024 Platelets (Bld) [#/Vol] 253 10*3/uL Normal 150-[address] [facility] Comment on above: Performed By: #### C BC, [id number], T4F, ETOH, LIPID, CMP, TSH3 wRFLX #### [facility] [address] [place] [address] [place] Potassium [Moles/volume] in Serum or PlasmaOrdered By: Norah Sykes on 12-29-2024 Potassium [Moles/Vol] 4.3 mmol/L Normal 3.5-5.1 [facility] Comment on above: Performed By: #### C BC, [id number], T4F, ETOH, LIPID, CMP, TSH3 wRFLX #### [facility] [address] Protein Test strip (U) [Mass /Vol]Ordered By: Norah Sykes on 12-29-2024 Protein (U) [Mass/Vol] Trace mg/dL High Negative [facility] Protein [Mass/volume] in Ser um or PlasmaOrdered By: Norah Sykes on 12-29-2024 Protein [Mass/Vol] 6.8 g/dL Normal 6.4-8.9 [facility] Comment on above: Performed By: #### C BC, [id number], T4F, ETOH, LIPID, CMP, TSH3 wRFLX #### [address] Serum globulin measurement b y calculation (mass/volume)Ordered By: Norah Sykes on 12-29-2024 Globulin (S) [Mass/Vol] 2.8 g/dL [facility] Comment on above: Performed By: #### C BC, [id number], T4F, ETOH, LIPID, CMP, TSH3 wRFLX #### [facility] [address] [place] [address] Serum or plasma albumin/glob ulin mass ratioOrdered By: Norah Sykes on 12-29-2024 Albumin/Globulin [Mass ratio] 1.4 {ratio} [facility] Comment on above: Performed By: #### C BC, [id number], T4F, ETOH, LIPID, CMP, TSH3 wRFLX #### [facility] [address] [place] [address] Serum or plasma anion gap de terminationOrdered By: Norah Sykes on 12-29-2024 Anion gap [Moles/Vol] 6.7 mmol/L Normal 6.0-15.0 [facility] Comment on above: Performed By: #### C BC, [id number], T4F, ETOH, LIPID, CMP, TSH3 wRFLX #### [facility] [address] [place] [address] Serum or plasma ethanol alayna urement (mass/volume)Ordered By: Norah Sykes on 12-29-2024 Ethanol [Mass/Vol] TNP [facility] Comment on above: Test not performed Sodium [Moles/volume] in Ser um or PlasmaOrdered By: Norah Sykes on 12-29-2024 Sodium [Moles/Vol] 139 mmol/L Normal 136-145 [facility] Comment on above: Performed By: #### C BC, [id number], T4F, ETOH, LIPID, CMP, TSH3 wRFLX #### [facility] [address] Specific gravity Test strip (U) [Rel density]Ordered By: Norah Sykes on 12-29-2024 Specific gravity (U) [Rel density] 1.030 1.001-1.[address] [facility] Thyroid Stim Hormone w/Rflxo n 12-29-2024 Thyroid Stim Hormone w/Rflx 5.46 u[iU]/mL High 0.45-5.33 [facility] Comment on above: Performed By: #### C BC, [id number], T4F, ETOH, LIPID, CMP, TSH3 wRFLX #### [facility] [address] Urea nitrogen [Mass/volume] in Serum or PlasmaOrdered By: Norah Sykes on 12-29-2024 Urea nitrogen [Mass/Vol] 15 mg/dL Normal 7-[address] [facility] Comment on above: Performed By: #### C BC, [id number], T4F, ETOH, LIPID, CMP, TSH3 wRFLX #### [facility] [address] [place] [id number] [facility] Urobilinogen Test strip (U) [Mass/Vol]Ordered By: Norah Sykes on 12-29-2024 Urobilinogen (U) [Mass/Vol] 2 mg/dL High Normal [facility] Vitamin D 25 Hydroxy Totalon 12-29-2024 Vitamin D 25 Hydroxy Total 13.6 ng/mL Low 30-100 [facility] Comment on above: Result Comment: CEM MIN D STATUS 25(OH)VITAMIN D RANGE (ng/mL) Deficient <20 Insufficient 20 to <30 Sufficient 30 to 100 Reference: Malou MF,Roly NC, Kassidy SHAH, et al. Evaluation,treatment, and prevention of vitamin D deficiency; an Endocrine Society clinical practice guideline. JCEM. 2010; 96(7):1911-30. PERFORMED BY: [place] [address] PATHOLOGIST TIME STUDY ANALYST AMBER HENNING M.D. Performed By: #### V [id number], TSH3 wRFLX, LIPID #### [address] pH of Urine by Test stripOrd ered By: Norah Sykes on 12-29-2024 pH (U) 6.0 [pH] Normal 5.0-9.[address] [facility] Comment on above: Order Comment: Name Collection Type:: Clean-Voided Midstream Performed By: #### V [id number], TSH3 wRFLX, LIPID #### [address] ECG 12 lead ECGon 12-04-2024 ECG 12 lead ECG [facility] [place] [address] Electrocardiograph Report Signed Patient: Barbra Claros MR#: [id number] : 1995 Acct:[id number] Age/Sex: 29 / F ADM Date: 12/03/24 Loc: Room: [address] [place] [address] Type: ADM IN Attending Dr: Kit Gutierrez [...] Juarez MD 0 12/04/24 0951 Normal [facility] Complete Blood Count Auto Di ffon 12-03-2024 Basophils (Bld) [#/Vol] 0.0 10*3/uL Normal 0.0-0.2 [facility] Comment on above: Result Comment: PERF ORMED BY: [place] [address] PATHOLOGIST TIME STUDY ANALYST AMBER HENNING M.D. Performed By: #### V [id number], TSH3 wRFLX, LIPID #### [address] Basophils/100 WBC (Bld) 0.3 % Normal . [facility] Comment on above: Performed By: #### V [id number], TSH3 wRFLX, LIPID #### [address] Eosinophils (Bld) [#/Vol] 0.0 10*3/uL Normal 0.0-0.45 [facility] Comment on above: Performed By: #### V [id number], TSH3 wRFLX, LIPID #### [address] Eosinophils/100 WBC (Bld) 0.1 % Normal . [facility] Comment on above: Performed By: #### V [id number], TSH3 wRFLX, LIPID #### [address] Erythrocyte distribution width (RBC) [Ratio] 14.3 % Normal 11.9-15.3 [facility] Comment on above: Performed By: #### V [id number], TSH3 wRFLX, LIPID #### [address] Hematocrit (Bld) [Volume fraction] 35.9 % Normal 34.0-46.4 [facility] Comment on above: Performed By: #### V [id number], TSH3 wRFLX, LIPID #### [address] Hemoglobin (Bld) [Mass/Vol] 12.1 g/dL Normal 11.8-15.4 [facility] Comment on above: Performed By: #### V [id number], TSH3 wRFLX, LIPID #### [address] Lymphocytes (Bld) [#/Vol] 2.0 10*3/uL Normal 1.00-4.8 [facility] Comment on above: Performed By: #### V [id number], TSH3 wRFLX, LIPID #### [address] Lymphocytes/100 WBC (Bld) 33.7 % Normal . [facility] Comment on above: Performed By: #### V [id number], TSH3 wRFLX, LIPID #### [address] MCH (RBC) [Entitic mass] 29.3 pg Normal 24.7-34.3 [facility] Comment on above: Performed By: #### V [id number], TSH3 wRFLX, LIPID #### [address] MCV (RBC) [Entitic vol] 86.6 fL Normal 80-100 [facility] Comment on above: Performed By: #### V [id number], TSH3 wRFLX, LIPID #### [address] Mean Corpuscular HGB Conc 33.9 g/dL Normal 32.0-35.0 [facility] Comment on above: Performed By: #### V [id number], TSH3 wRFLX, LIPID #### [address] Monocytes (Bld) [#/Vol] 0.5 10*3/uL Normal 0.0-0.8 [facility] Comment on above: Performed By: #### V [id number], TSH3 wRFLX, LIPID #### [place] [address] [place] Monocytes/100 WBC (Bld) 17.21 % Normal 0.00-20.00 [facility] Comment on above: Performed By: #### V [id number], TSH3 wRFLX, LIPID #### [address] Monocytes/100 WBC (Bld) 7.7 % Normal . [facility] Comment on above: Performed By: #### V [id number], TSH3 wRFLX, LIPID #### [address] Neutrophils (Bld) [#/Vol] 3.5 10*3/uL Normal 1.8-7.7 [facility] Comment on above: Performed By: #### V [id number], TSH3 wRFLX, LIPID #### [address] Neutrophils/100 WBC (Bld) 58.2 % Normal . [facility] Comment on above: Performed By: #### V [id number], TSH3 wRFLX, LIPID #### [place] [address] [place] NRBC% 0.1 /100{WBC} Normal 0-0.5 [facility] Comment on above: Performed By: #### V [id number], TSH3 wRFLX, LIPID #### [place] [address] [place] Platelet mean volume (Bld) [Entitic vol] 7.2 fL Normal 6.3-10.7 [facility] Comment on above: Performed By: #### V [id number], TSH3 wRFLX, LIPID #### [place] [address] [place] Platelets (Bld) [#/Vol] 296 10*3/uL Normal 150-450 [facility] Comment on above: Performed By: #### V [id number], TSH3 wRFLX, LIPID #### [place] [address] [place] RBC (Bld) [#/Vol] 4.14 10*6/uL Normal 3.60-5.[address] [facility] Comment on above: Performed By: #### V [id number], TSH3 wRFLX, LIPID #### [address] WBC (Bld) [#/Vol] 5.9 10*3/uL Normal 3.8-11.6 [facility] Comment on above: Performed By: #### V [id number], TSH3 wRFLX, LIPID #### [address] White Blood Count 5.9 [CFU]/mL Normal 3.8-11.[address] [facility] Comment on above: Performed By: #### V [id number], TSH3 wRFLX, LIPID #### [address] Comprehensive Metabolic Pane blaine 12-03-2024 Albumin [Mass/Vol] 4.3 g/dL Normal 3.5-5.7 [facility] Comment on above: Performed By: #### V [id number], TSH3 wRFLX, LIPID #### [address] Albumin/Globulin [Mass ratio] 1.4 {ratio} Normal [facility] [facility] Comment on above: Performed By: #### V [id number], TSH3 wRFLX, LIPID #### [address] ALP [Catalytic activity/Vol] 55 U/L Normal 34-104 [facility] Comment on above: Performed By: #### V [id number], TSH3 wRFLX, LIPID #### [address] ALT [Catalytic activity/Vol] 19 U/L Normal 7-52 [facility] Comment on above: Performed By: #### V [id number], TSH3 wRFLX, LIPID #### [address] Anion gap [Moles/Vol] 6.8 mmol/L Normal 6.0-15.0 [facility] Comment on above: Performed By: #### V [id number], TSH3 wRFLX, LIPID #### [facility] [address] AST [Catalytic activity/Vol] 19 U/L Normal 13-39 [facility] Comment on above: Performed By: #### V [id number], TSH3 wRFLX, LIPID #### [facility] [address] [place] [address] Bilirubin [Mass/Vol] 0.3 mg/dL Normal 0.3-1.0 [facility] Comment on above: Performed By: #### V [id number], TSH3 wRFLX, LIPID #### [address] Calcium [Mass/Vol] 9.2 mg/dL Normal 8.6-10.3 [facility] Comment on above: Performed By: #### V [id number], TSH3 wRFLX, LIPID #### [place] [address] [place] Chloride [Moles/Vol] 104 mmol/L Normal 98-107 [facility] Comment on above: Performed By: #### V [id number], TSH3 wRFLX, LIPID #### [place] [address] [place] CO2 [Moles/Vol] 30.3 mmol/L Normal 21.0-31.0 The [facility] Comment on above: Performed By: #### V [id number], TSH3 wRFLX, LIPID #### [facility] [address] [place] [address] [place] Creatinine [Mass/Vol] 0.82 mg/dL Normal 0.60-1.20 [facility] Comment on above: Performed By: #### V [id number], TSH3 wRFLX, LIPID #### [facility] [address] [place] [address] [place] Creatinine Clr Calc Pharmacy 95.09 Normal [facility] Comment on above: Result Comment: PERF ORMED BY: [place] [address] PATHOLOGIST TIME STUDY ANALYST AMBER HENNING M.D. Performed By: #### V [id number], TSH3 wRFLX, LIPID #### [place] [address] [place] GFR/1.73 sq M.predicted MDRD (S/P/Bld) [Vol rate/Area] mL/min/{1.73_m2} Normal [facility] Comment on above: Performed By: #### V [id number], TSH3 wRFLX, LIPID #### [place] [address] [place] Globulin (S) [Mass/Vol] 3.0 g/dL Normal [facility] Comment on above: Performed By: #### V [id number], TSH3 wRFLX, LIPID #### [place] [address] [place] Glucose [Mass/Vol] 82 mg/dL Normal 70-100 [facility] Comment on above: Result Comment: [facility] Glucose Reference Range is dependent on time and content of last meal. Glucose of more than 200 mg/dL in a nonstressed, ambulatory subject supports the diagnosis of Diabetes Mellitus. ADA recommended reference range Performed By: #### V [id number], TSH3 wRFLX, LIPID #### [place] [address] [place] Potassium [Moles/Vol] 4.1 mmol/L Normal 3.5-5.1 [facility] Comment on above: Performed By: #### V [id number], TSH3 wRFLX, LIPID #### [place] [address] [place] Protein [Mass/Vol] 7.3 g/dL Normal 6.4-8.9 [facility] Comment on above: Performed By: #### V [id number], TSH3 wRFLX, LIPID #### [place] [address] [place] Sodium [Moles/Vol] 137 mmol/L Normal 136-145 [facility] Comment on above: Performed By: #### V [id number], TSH3 wRFLX, LIPID #### [address] Urea nitrogen [Mass/Vol] 11 mg/dL Normal 7-25 [facility] Comment on above: Performed By: #### V [id number], TSH3 wRFLX, LIPID #### [place] [address] [place] Drug Screen,Urineon 12-04-19 25 Amphetamine Screen,Urine Negative Normal Negative [facility] Comment on above: Performed By: #### C BC, [id number], T4F, ETOH, LIPID, CMP, TSH3 wRFLX #### [address] Barbiturate Screen,Urine Negative Normal Negative [facility] Comment on above: Performed By: #### C BC, [id number], T4F, ETOH, LIPID, CMP, TSH3 wRFLX #### [address] Benzodiazepines Screen,Urine Negative Normal Negative [facility] Comment on above: Performed By: #### C BC, [id number], T4F, ETOH, LIPID, CMP, TSH3 wRFLX #### [address] Cannabinoid Screen,Urine Positive Normal Negative [facility] Comment on above: Result Comment: Thes e are unconfirmed results and should not be used for legal purposes. Drug Cut-Off Concentration: AMPH 1000 ng/mL FIONA 200 ng/mL KIMMY 200 ng/mL COCM 300 ng/mL OP 300 ng/mL PCP 25 ng/mL THC 20 ng/mL PERFORMED BY: [place] [address] PATHOLOGIST TIME STUDY ANALYST AMBER HENNING M.D. Performed By: #### C BC, [id number], T4F, ETOH, LIPID, CMP, TSH3 wRFLX #### [address] Cocaine Screen,Urine Negative Normal Negative [facility] Comment on above: Performed By: #### C BC, [id number], T4F, ETOH, LIPID, CMP, TSH3 wRFLX #### [address] Opiate Screen,Urine Negative Normal Negative The [facility] Comment on above: Performed By: #### C BC, [id number], T4F, ETOH, LIPID, CMP, TSH3 wRFLX #### [address] Phencyclidine Screen,Urine Negative Normal Negative [facility] Comment on above: Performed By: #### C BC, [id number], T4F, ETOH, LIPID, CMP, TSH3 wRFLX #### [address] Ethyl Alcohol Profileon 11-17 Ethanol [Mass/Vol] mg/dL Normal [facility] Comment on above: Performed By: #### V [id number], TSH3 wRFLX, LIPID #### [address] Percent Ethanol Not performed Normal [facility] Comment on above: Result Comment: PERF ORMED BY: [place] [address] PATHOLOGIST TIME STUDY ANALYST AMBER HENNING M.D. Performed By: #### V [id number], TSH3 wRFLX, LIPID #### [address] HCG,Urineon 12-03-2024 Beta HCG ( test) Ql (U) Negative Normal [facility] Comment on above: Order Comment: Name Collection Type:: Clean-Voided Midstream Result Comment: PERF ORMED BY: [place] [address] PATHOLOGIST TIME STUDY ANALYST AMBER HENNING M.D. Performed By: #### C BC, [id number], T4F, ETOH, LIPID, CMP, TSH3 wRFLX #### [address] Lipid Panelon 12-03-2024 Cholesterol [Mass/Vol] 178 mg/dL Normal 140-200 [facility] Comment on above: Order Comment: BRET Mendez Comment Add to labs drawn in ER Result Comment: Chol less than 200 mg/dl low risk Chol 201-239 mg/dl borderline risk Chol 240 mg/dl and greater high risk Performed By: #### V [id number], TSH3 wRFLX, LIPID #### [facility] [address] [place] [address] [place] Cholesterol in HDL [Mass/Vol] 51 mg/dL Normal 23-92 [facility] Comment on above: Order Comment: BRET Mendez Comment Add to labs drawn in ER Result Comment: HDL CHOL ATP-III CLASSIFICATION Cardiovascular Risk HDL > or equal to 60 mg/dL LOW HDL < 40 mg/dL HIGH Performed By: #### V [id number], TSH3 wRFLX, LIPID #### [facility] [address] [place] [address] [facility] Cholesterol.total/Cho lesterol in HDL [Mass ratio] 3.5 {ratio} Normal <5.0 [facility] Comment on above: Order Comment: BRET Mendez Comment Add to labs drawn in ER Performed By: #### V [id number], TSH3 wRFLX, LIPID #### [facility] [address] [place] [id number] [place] LDL Cholesterol,Calculate d 109 mg/dL High 0-100 [facility] Comment on above: Order Comment: BRET Mendez Comment Add to labs drawn in ER Result Comment: LDL ATP III CLASSIFICATION LDL less than 100 mg/dL Optimal LDL 100-129 mg/dL Near or above optimal LDL 130-159 mg/dL Borderline high LDL 160-189 mg/dL High LDL greater than 189 mg/dL Very high Performed By: #### V [id number], TSH3 wRFLX, LIPID #### [facility] [address] [place] [id number] [place] Triglyceride w/Reflex 90 mg/dL Normal 0-149 [facility] Comment on above: Order Comment: BRET Mendez Comment Add to labs drawn in ER Result Comment: TRIG ATP III CLASSIFICATION TRIG less than 150 mg/dL Normal TRIG 150-199 mg/dL Borderline high TRIG 200-500 mg/dL High TRIG greater than 500 mg/dL Very high Standard traceable to the Center for Disease Conrtrol and Prevention (CDC) test method. Performed By: #### V [id number], TSH3 wRFLX, LIPID #### [address] VLDL CHOLESTEROL 18 mg/dL Normal [facility] Comment on above: Order Comment: FASTI NG Y Comment Add to labs drawn in ER Performed By: #### V [id number], TSH3 wRFLX, LIPID #### [address] Thyroid Stim Hormone w/Rflxo n 12-03-2024 Thyroid Stim Hormone w/Rflx 3.77 u[iU]/mL Normal 0.45-5.33 [facility] Comment on above: Order Comment: FASTI NG Y Comment Add to labs drawn in ER Performed By: #### V [id number], TSH3 wRFLX, LIPID #### [address] Urinalysison 12-03-2024 Appearance (U) Clear Normal Clear [facility] Comment on above: Order Comment: Name Collection Type:: Clean-Voided Midstream Performed By: #### C BC, [id number], T4F, ETOH, LIPID, CMP, TSH3 wRFLX #### [address] Bilirubin,Urine Negative Normal Negative [facility] Comment on above: Order Comment: Name Collection Type:: Clean-Voided Midstream Performed By: #### C BC, [id number], T4F, ETOH, LIPID, CMP, TSH3 wRFLX #### [place] [address] [place] Color (U) Colorless Normal Yellow [facility] Comment on above: Order Comment: Name Collection Type:: Clean-Voided Midstream Performed By: #### C BC, [id number], T4F, ETOH, LIPID, CMP, TSH3 wRFLX #### [place] [address] [place] Glucose Ql (U) Normal Normal Normal [facility] Comment on above: Order Comment: Name Collection Type:: Clean-Voided Midstream Performed By: #### C BC, [id number], T4F, ETOH, LIPID, CMP, TSH3 wRFLX #### [place] [id number] [facility] Ketones Ql (U) Negative Normal Negative [facility] Comment on above: Order Comment: Name Collection Type:: Clean-Voided Midstream Performed By: #### C BC, [id number], T4F, ETOH, LIPID, CMP, TSH3 wRFLX #### [address] Leukocyte esterase Test strip Ql (U) Negative Normal Negative [facility] Comment on above: Order Comment: Name Collection Type:: Clean-Voided Midstream Performed By: #### C BC, [id number], T4F, ETOH, LIPID, CMP, TSH3 wRFLX #### [address] Nitrite,Urine Negative Normal Negative [facility] Comment on above: Order Comment: Name Collection Type:: Clean-Voided Midstream Performed By: #### C BC, [id number], T4F, ETOH, LIPID, CMP, TSH3 wRFLX #### [address] Occult Blood,Urine Negative Normal Negative [facility] Comment on above: Order Comment: Name Collection Type:: Clean-Voided Midstream Performed By: #### C BC, [id number], T4F, ETOH, LIPID, CMP, TSH3 wRFLX #### [place] [id number] [place] pH (U) 7.5 [pH] Normal 5.0-9.0 [facility] Comment on above: Order Comment: Name Collection Type:: Clean-Voided Midstream Performed By: #### C BC, [id number], T4F, ETOH, LIPID, CMP, TSH3 wRFLX #### [place] [address] [place] Protein,Urine Negative Normal Negative [facility] Comment on above: Order Comment: Name Collection Type:: Clean-Voided Midstream Performed By: #### C BC, [id number], T4F, ETOH, LIPID, CMP, TSH3 wRFLX #### [address] Specificy [place],Urine 1.006 Normal 1.001-1.030 [facility] Comment on above: Order Comment: Name Collection Type:: Clean-Voided Midstream Performed By: #### C BC, [id number], T4F, ETOH, LIPID, CMP, TSH3 wRFLX #### [address] Urobilinogen,Urine Normal Normal Normal [facility] Comment on above: Order Comment: Name Collection Type:: Clean-Voided Midstream Performed By: #### C BC, [id number], T4F, ETOH, LIPID, CMP, TSH3 wRFLX #### [place] [id number] [facility] Vitamin D 25 Hydroxy Totalon 12-03-2024 Vitamin D 25 Hydroxy Total 10.9 ng/mL Low 30-100 [facility] Comment on above: Order Comment: BRET SOARES Y Comment Add to labs drawn in ER Result Comment: CEM MIN D STATUS 25(OH)VITAMIN D RANGE (ng/mL) Deficient <20 Insufficient 20 to <30 Sufficient 30 to 100 Reference: Malou MF,Roly NC, Kassidy SHAH, et al. Evaluation,treatment, and prevention of vitamin D deficiency; an Endocrine Society clinical practice guideline. JCEM. 2010; 96(7):1911-30. PERFORMED BY: [place] [address] PATHOLOGIST TIME STUDY ANALYST AMBER HENNING M.D. Performed By: #### V [id number], TSH3 wRFLX, LIPID #### [place] [id number] [facility] Urine Cultureon 11-23-2024 Bacteria identified Cx Nom (U) 75,000 colonies/ml mixed bacterial skin contaminants 2 Days PERFORMED BY: [place] [address] PATHOLOGIST TIME STUDY ANALYST AMBER HENNING M.D. Normal [facility] Comment on above: Performed By: #### C UU #### [address] Urine cultureOrdered By: Chavez Gunter on 11-23-2024 Bacteria identified Cx Nom (U) [address] [facility] ECG 12 lead ECGon 11-15-2024 ECG 12 lead ECG [facility] [place] [address] Electrocardiograph Report Signed Patient: Barbra Claros MR#: [id number] : 1995 Acct:[id number] Age/Sex: 29 / F ADM Date: 11/14/24 Loc: 1S Room: [address] [place] [address] Type: ADM IN Attending Dr: Dashawn Moreno [...] rhythm Normal ECG Confirmed by Rhoda Herring ([id number]) on 11/15/2024 4:36:41 PM Referred By: Electronically Signed By: Rhoda Herring Transcribed By: MUS Signed By Rohda Herring MD 5 1636 Normal [facility] X-ray reportOrdered By: Jay Sunshine on 11-15-2024 Study report [facility] [place] [address] XRay Report Signed Patient: Barbra Claros MR#: [id number] : 1995 Acct:[id number] Age/Sex: 29 / F ADM Date: 5 Loc: 1S Room: [address] [place] [address] Type: ADM IN Attending Dr: Dashawn Moreno [...] AM Dictation Location: RADIO-PC-16 Transcribed By: SEMAJ 11/15/2453 Dictated By: Julio Sunshine DO 11/15/2453 Signed By: 11/15/[address] [facility] XR hand RT 2Von 11-15-2024 XR hand RT 2V [facility] [place] [address] XRay Report Signed Patient: Barbra Claros MR#: [id number] : 1995 Acct:[id number] Age/Sex: 29 / F ADM Date: 11/14/24 Loc: Room: [address] [place] [address] Type: ADM IN Attending Dr: Dashawn Moreno [...] 9:53 AM Dictation Location: RADIO-PC-16 Transcribed By: [facility] 11/15/24 0953 Dictated By: Julio Sunshine DO 11/15/2453 Signed By: 11/15/2453 Normal [facility] Alanine aminotransferase [En zymatic activity/volume] in Serum or PlasmaOrdered By: Goyo Noemy on 11-14-2024 ALT [Catalytic activity/Vol] Alanine aminotransferase [Enzymatic activity/volume] in Serum or Plasma [facility] ALT [Catalytic activity/Vol] 36 U/L Normal [facility] Comment on above: Performed By: #### V [id number], TSH3 wRFLX, LIPID #### [facility] [address] [place] [address] [place] Albumin [Mass/volume] in Ser um or Plasma by Bromocresol green (BCG) dye binding methoOrdered By: Goyo Epps on 11-14-2024 Albumin BCG dye [Mass/Vol] Albumin [Mass/volume] in Serum or Plasma by Bromocresol green (BCG) dye binding metho 3.5-5.[address] [facility] Albumin BCG dye [Mass/Vol] 4.3 g/dL 3.5-5.[address] [facility] Alkaline phosphatase [Enzyma tic activity/volume] in Serum or PlasmaOrdered By: Goyo Epps on 11-14-2024 ALP [Catalytic activity/Vol] Alkaline phosphatase [Enzymatic activity/volume] in Serum or Plasma 34-[address] [facility] ALP [Catalytic activity/Vol] 54 U/L Normal [address] [facility] Comment on above: Performed By: #### V [id number], TSH3 wRFLX, LIPID #### [facility] [address] [place] [id number] [facility] Amphetamine Screen Ql (U)Ord ered By: Goyo Epps on 11-14-2024 Amphetamines Ql (U) Amphetamines screen Negativ e [facility] Amphetamines Ql (U) Negative Negative [facility] Appearance of UrineOrdered B y: Goyo Epps on 11-14-2024 Appearance (U) Urine appearance Clear [facility] Appearance (U) Clear Normal Clear [facility] Comment on above: Order Comment: Name Collection Type:: Clean-Voided Midstream Performed By: #### C BC, [id number], T4F, ETOH, LIPID, CMP, TSH3 wRFLX #### [facility] [address] [place] [id number] [place] Aspartate aminotransferase [ Enzymatic activity/volume] in Serum or PlasmaOrdered By: Goyo Epps on 11-14-2024 AST [Catalytic activity/Vol] Aspartate aminotransferase [Enzymatic activity/volume] in Serum or Plasma [facility] AST [Catalytic activity/Vol] 36 U/L Normal [facility] Comment on above: Performed By: #### V [id number], TSH3 wRFLX, LIPID #### [facility] [address] [place] [phone] [place] Bacteria [Presence] in Urine by AutomatedOrdered By: Goyo Epps on 11-14-2024 Bacteria Auto Ql (U) Bacteria [Presence] in Urine by Automated None Seen [facility] Bacteria Auto Ql (U) None seen [HPF] None Seen [facility] Barbiturates [Presence] in U rine by Screen methodOrdered By: Goyo Epps on 11-14-2024 Barbiturates Screen Ql (U) Barbiturates [Presence] in Urine by Screen method Negative [facility] Barbiturates Screen Ql (U) Negative Negative [facility] Basophils Auto (Bld) [#/Vol] Ordered By: Goyo Epps on 11-14-2024 Basophils (Bld) [#/Vol] Automated basophil count 0.0-0.2 [facility] Basophils [#/volume] in Bloo d by Automated countOrdered By: Goyo Epps on 11-14-2024 Basophils (Bld) [#/Vol] 0.0 10*3/uL Normal 0.0-0.[address] [facility] Comment on above: Result Comment: PERF ORMED BY: [facility] [address] [facility] [place] [address] PATHOLOGIST TIME STUDY ANALYST AMBER HENNING M.D. Performed By: #### V [id number], TSH3 wRFLX, LIPID #### [facility] [address] [place] [address] [place] Basophils/100 WBC Auto (Bld) Ordered By: Goyo Epps on 11-14-2024 Basophils/100 WBC (Bld) Automated basophil % . [facility] Basophils/100 leukocytes in Blood by Automated countOrdered By: Goyo Epps on 11-14-2024 Basophils/100 WBC (Bld) 0.4 % Normal . [facility] Comment on above: Performed By: #### V [id number], TSH3 wRFLX, LIPID #### [facility] [address] Benzodiazepines Screen Ql (U )Ordered By: Goyo Epps on 11-14-2024 Benzodiazepines Ql (U) Benzodiazepines [Presence] in Urine by Screen method Negative [facility] Benzodiazepines Ql (U) Negative Negative [facility] Benzoylecgonine [Presence] i n Urine by Screen methodOrdered By: Goyo Epps on 11-14-2024 Benzoylecgonine Screen Ql (U) Benzoylecgonine [Presence] in Urine by Screen method Negative [facility] Benzoylecgonine Screen Ql (U) Negative Negative [facility] Bilirubin Test strip Ql (U)O rdered By: Goyo Epps on 11-14-2024 Bilirubin Ql (U) Bilirubin.total [Presence] in Urine by Test strip Negative [facility] Bilirubin Ql (U) Negative Negative [place] Bilirubin.total [Mass/volume ] in Serum or PlasmaOrdered By: Goyo Epps on 11-14-2024 Bilirubin [Mass/Vol] Bilirubin.total [Mass/volume] in Serum or Plasma Low 0.3-1.[address] [facility] Bilirubin [Mass/Vol] 0.2 mg/dL Low 0.3-1.0 [facility] Comment on above: Performed By: #### V [id number], TSH3 wRFLX, LIPID #### [facility] [address] [place] [address] [place] Calcium [Mass/volume] in Ser um or PlasmaOrdered By: Goyo Epps on 11-14-2024 Calcium [Mass/Vol] Calcium [Mass/volume ] in Serum or Plasma 8.6-10.[address] [facility] Calcium [Mass/Vol] 8.9 mg/dL Normal 8.6-10.3 [facility] Comment on above: Performed By: #### V [id number], TSH3 wRFLX, LIPID #### [facility] [address] [place] [phone] [place] Cannabinoids [Presence] in U rine by Screen methodOrdered By: Goyo Epps on 11-14-2024 Cannabinoids Screen Ql (U) Cannabinoids [Presence] in Urine by Screen method High Negative [facility] Comment on above: These are unconfirme d results and should not be used for legal purposes. Drug Cut-Off Concentration: AMPH 1000 ng/mL FIONA 200 ng/mL KIMMY 200 ng/mL COCM 300 ng/mL OP 300 ng/mL PCP 25 ng/mL THC 20 ng/mL Cannabinoids Screen Ql (U) Positive High Negative [facility] Comment on above: These are unconfirme d results and should not be used for legal purposes. Drug Cut-Off Concentration: AMPH 1000 ng/mL FIONA 200 ng/mL KIMMY 200 ng/mL COCM 300 ng/mL OP 300 ng/mL PCP 25 ng/mL THC 20 ng/mL Carbon dioxide, total [Moles /volume] in Serum or PlasmaOrdered By: Goyo Epps on 11-14-2024 CO2 [Moles/Vol] Carbon dioxide, tota l [Moles/volume] in Serum or Plasma 21.0-31.[address] [facility] CO2 [Moles/Vol] 27.8 mmol/L Normal 21.0-31.0 [place] Comment on above: Performed By: #### V [id number], TSH3 wRFLX, LIPID #### [facility] [address] [place] [phone] [place] Chloride [Moles/volume] in S karla or PlasmaOrdered By: Goyo Epps on 11-14-2024 Chloride [Moles/Vol] Chloride [Moles/vol ume] in Serum or Plasma 98-[address] [facility] Chloride [Moles/Vol] 105 mmol/L Normal 98-107 [facility] Comment on above: Performed By: #### V [id number], TSH3 wRFLX, LIPID #### [facility] [address] [place] [address] [place] Cholesterol [Mass/volume] in Serum or PlasmaOrdered By: Goyo Epps on 11-14-2024 Cholesterol [Mass/Vol] Cholesterol [Mass/volume] in Serum or Plasma 140-[address] [facility] Comment on above: Chol less than 200 m g/dl low riskChol 201-239 mg/dl borderline riskChol 240 mg/dl and greater high risk Cholesterol [Mass/Vol] 167 mg/dL Normal 140-[address] [facility] Comment on above: Chol less than 200 m g/dl low riskChol 201-239 mg/dl borderline riskChol 240 mg/dl and greater high risk Result Comment: Chol less than 200 mg/dl low risk Chol 201-239 mg/dl borderline risk Chol 240 mg/dl and greater high risk Performed By: #### V [id number], TSH3 wRFLX, LIPID #### [facility] [address] [place] [phone] [place] Cholesterol in HDL [Mass/vol ume] in Serum or PlasmaOrdered By: Goyo Epps on 11-14-2024 Cholesterol in HDL [Mass/Vol] Serum or plasma high density lipoprotein (HDL) cholesterol measurement [facility] Comment on above: HDL CHOL ATP-III CLA SSIFICATION Cardiovascular RiskHDL > or equal to 60 mg/dL LOWHDL < 40 mg/dL HIGH Cholesterol in HDL [Mass/Vol] 58 mg/dL Normal [facility] Comment on above: HDL CHOL ATP-III CLA SSIFICATION Cardiovascular RiskHDL > or equal to 60 mg/dL LOWHDL < 40 mg/dL HIGH Result Comment: HDL CHOL ATP-III CLASSIFICATION Cardiovascular Risk HDL > or equal to 60 mg/dL LOW HDL < 40 mg/dL HIGH Performed By: #### V [id number], TSH3 wRFLX, LIPID #### [facility] [address] [place] [phone] [place] Cholesterol in LDL Calc [Mas s/Vol]Ordered By: Goyo Epps on 11-14-2024 Cholesterol in LDL [Mass/Vol] Cholesterol in LDL [Mass/volume] in Serum or Plasma by calculation 0-[address] [facility] Comment on above: LDL ATP III CLASSIFI CATIONLDL less than 100 mg/dL OptimalLDL 100-129 mg/dL Near or above optimalLDL 130-159 mg/dL Borderline highLDL 160-189 mg/dL HighLDL greater than 189 mg/dL Very high Cholesterol in LDL [Mass/Vol] 98 mg/dL 0-[address] [facility] Comment on above: LDL ATP III CLASSIFI CATIONLDL less than 100 mg/dL OptimalLDL 100-129 mg/dL Near or above optimalLDL 130-159 mg/dL Borderline highLDL 160-189 mg/dL HighLDL greater than 189 mg/dL Very high Cholesterol in VLDL Calc [Ma ss/Vol]Ordered By: Goyo Epps on 11-14-2024 Cholesterol in VLDL [Mass/Vol] Cholesterol in VLDL [Mass/volume] in Serum or Plasma by calculation [facility] Cholesterol in VLDL [Mass/Vol] 11 mg/dL [facility] Color Auto (U)Ordered By: Ela Epps on 11-14-2024 Color (U) Color of Urine by Auto [facility] Color of Urine by AutoOrdere d By: Goyo Epps on 11-14-2024 Color (U) Yellow Normal Yellow [facility] Comment on above: Order Comment: Name Collection Type:: Clean-Voided Midstream Performed By: #### C BC, [id number], T4F, ETOH, LIPID, CMP, TSH3 wRFLX #### [address] Complete Blood Count Auto Di ffon 11-14-2024 Mean Corpuscular HGB Conc 33.9 g/dL Normal 32.0-35.0 [facility] Comment on above: Performed By: #### V [id number], TSH3 wRFLX, LIPID #### [facility] [address] [place] [address] [place] Monocytes/100 WBC (Bld) 18.51 % Normal 0.00-20.00 [facility] Comment on above: Performed By: #### V [id number], TSH3 wRFLX, LIPID #### [facility] [address] [place] [address] [place] NRBC% 0.1 /100{WBC} Normal 0-0.5 [facility] Comment on above: Performed By: #### V [id number], TSH3 wRFLX, LIPID #### [facility] [address] Comprehensive Metabolic Pane blaine 11-14-2024 Albumin [Mass/Vol] 4.3 g/dL Normal 3.5-5.7 [facility] Comment on above: Performed By: #### V [id number], TSH3 wRFLX, LIPID #### [address] Creatinine Clr Calc Pharmacy 142.40 Normal [facility] Comment on above: Result Comment: PERF ORMED BY: [place] [address] PATHOLOGIST TIME STUDY ANALYST AMBER HENNING M.D. Performed By: #### V [id number], TSH3 wRFLX, LIPID #### [address] GFR/1.73 sq M.predicted MDRD (S/P/Bld) [Vol rate/Area] mL/min/{1.73_m2} Normal [facility] Comment on above: Performed By: #### V [id number], TSH3 wRFLX, LIPID #### [address] Creatinine [Mass/volume] in Serum or PlasmaOrdered By: Goyo Epps on 11-14-2024 Creatinine [Mass/Vol] Creatinine [Mass/v olume] in Serum or Plasma Low 0.60-1.[address] [facility] Creatinine [Mass/Vol] 0.54 mg/dL Low 0.60-1.20 [facility] Comment on above: Performed By: #### V [id number], TSH3 wRFLX, LIPID #### [place] [address] [place] Dipstick and Microscopicon 0 11-14-2024 Bacteria,Urine None Seen Normal None Seen [facility] Comment on above: Order Comment: Name Collection Type:: Clean-Voided Midstream Performed By: #### C BC, [id number], T4F, ETOH, LIPID, CMP, TSH3 wRFLX #### [facility] [address] [place] [address] [place] Bilirubin,Urine Negative Normal Negative [facility] Comment on above: Order Comment: Name Collection Type:: Clean-Voided Midstream Performed By: #### C BC, [id number], T4F, ETOH, LIPID, CMP, TSH3 wRFLX #### [facility] [address] [place] [id number] [place] Glucose Ql (U) Normal Normal Normal [facility] Comment on above: Order Comment: Name Collection Type:: Clean-Voided Midstream Performed By: #### C BC, [id number], T4F, ETOH, LIPID, CMP, TSH3 wRFLX #### [facility] [address] [place] [id number] [place] Hyaline Casts,Urine None Normal 0-8 [facility] Comment on above: Order Comment: Name Collection Type:: Clean-Voided Midstream Performed By: #### C BC, [id number], T4F, ETOH, LIPID, CMP, TSH3 wRFLX #### [place] [address] [place] Mucus,Urine 1+ Critically abnormal [facility] Comment on above: Order Comment: Name Collection Type:: Clean-Voided Midstream Performed By: #### C BC, [id number], T4F, ETOH, LIPID, CMP, TSH3 wRFLX #### [facility] [address] [place] [id number] [place] Nitrite,Urine Negative Normal Negative [facility] Comment on above: Order Comment: Name Collection Type:: Clean-Voided Midstream Performed By: #### C BC, [id number], T4F, ETOH, LIPID, CMP, TSH3 wRFLX #### [facility] [address] [place] [address] [place] Occult Blood,Urine Negative Normal Negative [facility] Comment on above: Order Comment: Name Collection Type:: Clean-Voided Midstream Performed By: #### C BC, [id number], T4F, ETOH, LIPID, CMP, TSH3 wRFLX #### [facility] [address] [place] [id number] [place] RBC,Urine 3-4 Normal 0-4 [facility] Comment on above: Order Comment: Name Collection Type:: Clean-Voided Midstream Performed By: #### C BC, [id number], T4F, ETOH, LIPID, CMP, TSH3 wRFLX #### [address] Specificy [place],Urine 1.031 High 1.001-1.030 [facility] Comment on above: Order Comment: Name Collection Type:: Clean-Voided Midstream Performed By: #### C BC, [id number], T4F, ETOH, LIPID, CMP, TSH3 wRFLX #### [address] Squamous Epithelial Cell,Urine 5-9 High 0-2 [facility] Comment on above: Order Comment: Name Collection Type:: Clean-Voided Midstream Performed By: #### C BC, [id number], T4F, ETOH, LIPID, CMP, TSH3 wRFLX #### [address] Urobilinogen,Urine 2 mg/dL High Normal [facility] Comment on above: Order Comment: Name Collection Type:: Clean-Voided Midstream Performed By: #### C BC, [id number], T4F, ETOH, LIPID, CMP, TSH3 wRFLX #### [address] WBC,Urine 1-2 Normal 0-4 [facility] Comment on above: Order Comment: Name Collection Type:: Clean-Voided Midstream Performed By: #### C BC, [id number], T4F, ETOH, LIPID, CMP, TSH3 wRFLX #### [place] [address] [place] Drug Screen,Urineon 11-15-19 25 Amphetamine Screen,Urine Negative Normal Negative [facility] Comment on above: Performed By: #### C BC, [id number], T4F, ETOH, LIPID, CMP, TSH3 wRFLX #### [address] Barbiturate Screen,Urine Negative Normal Negative [facility] Comment on above: Performed By: #### C BC, [id number], T4F, ETOH, LIPID, CMP, TSH3 wRFLX #### [address] Benzodiazepines Screen,Urine Negative Normal Negative [facility] Comment on above: Performed By: #### C BC, [id number], T4F, ETOH, LIPID, CMP, TSH3 wRFLX #### [address] Cannabinoid Screen,Urine Positive High Negative [facility] Comment on above: Result Comment: Thes e are unconfirmed results and should not be used for legal purposes. Drug Cut-Off Concentration: AMPH 1000 ng/mL FIONA 200 ng/mL KIMMY 200 ng/mL COCM 300 ng/mL OP 300 ng/mL PCP 25 ng/mL THC 20 ng/mL PERFORMED BY: [place] [address] PATHOLOGIST TIME STUDY ANALYST AMBER HENNING M.D. Performed By: #### C BC, [id number], T4F, ETOH, LIPID, CMP, TSH3 wRFLX #### [address] Cocaine Screen,Urine Negative Normal Negative [facility] Comment on above: Performed By: #### C BC, [id number], T4F, ETOH, LIPID, CMP, TSH3 wRFLX #### [address] Opiate Screen,Urine Negative Normal Negative [facility] Comment on above: Performed By: #### C BC, [id number], T4F, ETOH, LIPID, CMP, TSH3 wRFLX #### [address] Phencyclidine Screen,Urine Negative Normal Negative [facility] Comment on above: Performed By: #### C BC, [id number], T4F, ETOH, LIPID, CMP, TSH3 wRFLX #### [address] Eosinophils Auto (Bld) [#/Vo l]Ordered By: Goyo Epps on 11-14-2024 Eosinophils (Bld) [#/Vol] Automated eosinophil count 0.0-0.[address] [facility] Eosinophils [#/volume] in Bl ood by Automated countOrdered By: Goyo Epps on 11-14-2024 Eosinophils (Bld) [#/Vol] 0.0 10*3/uL Normal 0.0-0.[address] [facility] Comment on above: Performed By: #### V [id number], TSH3 wRFLX, LIPID #### [facility] [address] [place] [address] [place] Eosinophils/100 WBC Auto (Bl d)Ordered By: Goyo Epps on 11-14-2024 Eosinophils/100 WBC (Bld) Automated eosinophil % . [facility] Eosinophils/100 leukocytes i n Blood by Automated countOrdered By: Goyo Epps on 11-14-2024 Eosinophils/100 WBC (Bld) 0.2 % Normal . [facility] Comment on above: Performed By: #### V [id number], TSH3 wRFLX, LIPID #### [facility] [address] Epithelial cells.squamous [# /area] in Urine sediment by Automated countOrdered By: Goyo Epps on 11-14-2024 Epithelial cells.squamous Auto (Urine sed) [#/Area] Epithelial cells.squamous [#/area] in Urine sediment by Automated count High 0-[address] [facility] Epithelial cells.squamous Auto (Urine sed) [#/Area] 5-9 [HPF] High 0-[address] [facility] Erythrocyte distribution wid th Auto (RBC) [Ratio]Ordered By: Goyo Epps on 11-14-2024 Erythrocyte distribution width (RBC) [Ratio] Erythrocyte distribution width [Ratio] by Automated count 11.9-15.[address] [facility] Erythrocyte distribution wid th [Ratio] by Automated countOrdered By: Goyo Epps on 11-14-2024 Erythrocyte distribution width (RBC) [Ratio] 14.5 % Normal 11.9-15.[address] [facility] Comment on above: Performed By: #### V [id number], TSH3 wRFLX, LIPID #### [facility] [address] [place] [address] Erythrocytes [#/area] in Uri ne sediment by Automated countOrdered By: Goyo Epps on 11-14-2024 RBC Auto (Urine sed) [#/Area] Erythrocytes [#/area] in Urine sediment by Automated count 0-[address] [facility] RBC Auto (Urine sed) [#/Area] 3-4 [HPF] 0-[address] [facility] Erythrocytes [#/volume] in B lood by Automated countOrdered By: Goyo Epps on 11-14-2024 RBC (Bld) [#/Vol] 4.17 10*6/uL Normal 3.60-5.00 [facility] Comment on above: Performed By: #### V [id number], TSH3 wRFLX, LIPID #### [address] Ethanol [Mass/volume] in Ser um or PlasmaOrdered By: Goyo Epps on 11-14-2024 Ethanol [Mass/Vol] Ethanol [Mass/volume ] in Serum or Plasma [facility] Comment on above: Test not performed Ethanol [Mass/Vol] mg/dL Normal [facility] Comment on above: Performed By: #### V [id number], TSH3 wRFLX, LIPID #### [address] Ethyl Alcohol Profileon 10-18 Percent Ethanol Not performed Normal [facility] Comment on above: Result Comment: PERF ORMED BY: [place] [address] PATHOLOGIST TIME STUDY ANALYST AMBER HENNING M.D. Performed By: #### V [id number], TSH3 wRFLX, LIPID #### [facility] [address] [place] [address] Globulin Calc (S) [Mass/Vol] Ordered By: Goyo Epps on 11-14-2024 Globulin (S) [Mass/Vol] Serum globulin measurement by calculation (mass/volume) [facility] Glucose [Mass/volume] in Ser um or PlasmaOrdered By: Goyo Epps on 11-14-2024 Glucose [Mass/Vol] Glucose [Mass/volume ] in Serum or Plasma 70-[address] [facility] Comment on above: ADA recommended refe rence rangeRandom Glucose Reference Range is dependent on time and content of last meal. Glucose of more than 200 mg/dL in a nonstressed, ambulatory subject supports the diagnosis of Diabetes Mellitus. Glucose [Mass/Vol] 94 mg/dL Normal 70-100 [facility] Comment on above: ADA recommended refe rence rangeRandom Glucose Reference Range is dependent on time and content of last meal. Glucose of more than 200 mg/dL in a nonstressed, ambulatory subject supports the diagnosis of Diabetes Mellitus. Result Comment: [place] om Glucose Reference Range is dependent on time and content of last meal. Glucose of more than 200 mg/dL in a nonstressed, ambulatory subject supports the diagnosis of Diabetes Mellitus. ADA recommended reference range Performed By: #### V [id number], TSH3 wRFLX, LIPID #### [address] Glucose [Mass/volume] in Uri ne by Test stripOrdered By: Goyo Epps on 11-14-2024 Glucose Test strip (U) [Mass/Vol] Glucose [Mass/volume] in Urine by Test strip Normal [facility] Glucose Test strip (U) [Mass/Vol] Normal mg/dL Normal [facility] HCG ( test) IA.rapi d Ql (U)Ordered By: Goyo Epps on 11-14-2024 HCG ( test) Ql (U) Urine human chorionic gonadotropin (hCG) detection by immunoassay [facility] HCG ( test) Ql (U) Negative [facility] HCG,Urineon 11-14-2024 Beta HCG ( test) Ql (U) Negative Normal [facility] Comment on above: Order Comment: Name Collection Type:: Clean-Voided Midstream Result Comment: PERF ORMED BY: [place] [address] PATHOLOGIST TIME STUDY ANALYST AMBER HENNING M.D. Performed By: #### C BC, [id number], T4F, ETOH, LIPID, CMP, TSH3 wRFLX #### [facility] [address] Hematocrit Auto (Bld) [Volum e fraction]Ordered By: Goyo Epps on 11-14-2024 Hematocrit (Bld) [Volume fraction] Hematocrit [Volume Fraction] of Blood by Automated count 34.0-46.[address] [facility] Hematocrit [Volume Fraction] of Blood by Automated countOrdered By: Goyo Epps on 11-14-2024 Hematocrit (Bld) [Volume fraction] 35.9 % Normal 34.0-46.[address] [facility] Comment on above: Performed By: #### V [id number], TSH3 wRFLX, LIPID #### [address] Hemoglobin Test strip Ql (U) Ordered By: Goyo Epps on 11-14-2024 Hemoglobin Ql (U) Hemoglobin [Presence ] in Urine by Test strip Negative [facility] Hemoglobin Ql (U) Negative Negative [facility] Hemoglobin [Mass/volume] in BloodOrdered By: Goyo Epps on 11-14-2024 Hemoglobin (Bld) [Mass/Vol] Hemoglobin [Mass/volume] in Blood 11.8-15.[address] [facility] Hemoglobin (Bld) [Mass/Vol] 12.2 g/dL Normal 11.8-15.[address] [facility] Comment on above: Performed By: #### V [id number], TSH3 wRFLX, LIPID #### [facility] [address] [place] [address] Hyaline casts [#/area] in Ur ine sediment by Automated countOrdered By: Goyo Epps on 11-14-2024 Hyaline casts Auto (Urine sed) [#/Area] Hyaline casts [#/area] in Urine sediment by Automated count 0-[address] [facility] Hyaline casts Auto (Urine sed) [#/Area] None [LPF] 0-[address] [facility] Ketones Test strip Ql (U)Ord ered By: Goyo Epps on 11-14-2024 Ketones Ql (U) Ketones [Presence] i n Urine by Test strip Negative [facility] Ketones [Presence] in Urine by Test stripOrdered By: Goyo Epps on 11-14-2024 Ketones Ql (U) Negative Normal Negative [facility] Comment on above: Order Comment: Name Collection Type:: Clean-Voided Midstream Performed By: #### C BC, [id number], T4F, ETOH, LIPID, CMP, TSH3 wRFLX #### [facility] [address] Leukocyte esterase [Presence ] in Urine by Test stripOrdered By: Goyo Epps on 11-14-2024 Leukocyte esterase Test strip Ql (U) Leukocyte esterase [Presence] in Urine by Test strip Negative [facility] Leukocyte esterase Test strip Ql (U) Negative Normal Negative [facility] Comment on above: Order Comment: Name Collection Type:: Clean-Voided Midstream Performed By: #### C BC, [id number], T4F, ETOH, LIPID, CMP, TSH3 wRFLX #### [facility] [address] Leukocytes [#/area] in Urine sediment by Automated countOrdered By: Goyo Epps on 11-14-2024 WBC Auto (Urine sed) [#/Area] Leukocytes [#/area] in Urine sediment by Automated count 0-[address] [facility] WBC Auto (Urine sed) [#/Area] 1-2 [HPF] 0-[address] [facility] Leukocytes [#/volume] correc arminda for nucleated erythrocytes in Blood by Automated counOrdered By: Goyo Epps on 11-14-2024 WBC corrected for nucl RBC Auto (Bld) [#/Vol] Leukocytes [#/volume] corrected for nucleated erythrocytes in Blood by Automated coun 3.8-11.[address] [facility] WBC corrected for nucl RBC Auto (Bld) [#/Vol] 7.1 10*3/uL 3.8-11.[address] [facility] Leukocytes [#/volume] in Blo od by Automated countOrdered By: Goyo Epps on 11-14-2024 WBC (Bld) [#/Vol] 7.1 10*3/uL Normal 3.8-11.6 [facility] Comment on above: Performed By: #### V [id number], TSH3 wRFLX, LIPID #### [facility] [address] [place] [id number] [facility] Lipid Panelon 11-14-2024 LDL Cholesterol,Calculate d 98 mg/dL Normal 0-100 [facility] Comment on above: Result Comment: LDL ATP III CLASSIFICATION LDL less than 100 mg/dL Optimal LDL 100-129 mg/dL Near or above optimal LDL 130-159 mg/dL Borderline high LDL 160-189 mg/dL High LDL greater than 189 mg/dL Very high Performed By: #### V [id number], TSH3 wRFLX, LIPID #### [facility] [address] Triglyceride w/Reflex 56 mg/dL Normal 0-149 [facility] Comment on above: Result Comment: TRIG ATP III CLASSIFICATION TRIG less than 150 mg/dL Normal TRIG 150-199 mg/dL Borderline high TRIG 200-500 mg/dL High TRIG greater than 500 mg/dL Very high Standard traceable to the Center for Disease Conrtrol and Prevention (CDC) test method. Performed By: #### V [id number], TSH3 wRFLX, LIPID #### [address] VLDL CHOLESTEROL 11 mg/dL Normal [facility] Comment on above: Performed By: #### V [id number], TSH3 wRFLX, LIPID #### [address] Lymphocytes Auto (Bld) [#/Vo l]Ordered By: Goyo Epps on 11-14-2024 Lymphocytes (Bld) [#/Vol] Lymphocytes [#/volume] in Blood by Automated count 1.00-4.[address] [facility] Lymphocytes [#/volume] in Bl ood by Automated countOrdered By: Goyo Epps on 11-14-2024 Lymphocytes (Bld) [#/Vol] 2.8 10*3/uL Normal 1.00-4.[address] [facility] Comment on above: Performed By: #### V [id number], TSH3 wRFLX, LIPID #### [place] [id number] [place] Lymphocytes/100 WBC Auto (Bl d)Ordered By: Goyo Epps on 11-14-2024 Lymphocytes/100 WBC (Bld) Lymphocytes/100 leukocytes in Blood by Automated count . [facility] Lymphocytes/100 leukocytes i n Blood by Automated countOrdered By: Goyo Epps on 11-14-2024 Lymphocytes/100 WBC (Bld) 39.7 % Normal . [facility] Comment on above: Performed By: #### V [id number], TSH3 wRFLX, LIPID #### [facility] [address] MCH Auto (RBC) [Entitic mass ]Ordered By: Goyo Epps on 11-14-2024 MCH (RBC) [Entitic mass] MCH [Entitic mass] by Automated count 24.7-34.[address] [facility] MCH [Entitic mass] by Automa arminda countOrdered By: Goyo Epps on 11-14-2024 MCH (RBC) [Entitic mass] 29.2 pg Normal 24.7-34.[address] [facility] Comment on above: Performed By: #### V [id number], TSH3 wRFLX, LIPID #### [facility] [address] [place] [address] MCHC Auto (RBC) [Mass/Vol]Or dered By: Goyo Epps on 11-14-2024 MCHC (RBC) [Mass/Vol] MCHC [Mass/volume] by Automated count 32.0-35.[address] [facility] MCHC (RBC) [Mass/Vol] 33.9 g/dL 32.0-35.0 [facility] MCV Auto (RBC) [Entitic vol] Ordered By: Goyo Epps on 11-14-2024 MCV (RBC) [Entitic vol] MCV [Entitic volume] by Automated count 80-[address] [facility] MCV [Entitic volume] by Auto mated countOrdered By: Goyo Epps on 11-14-2024 MCV (RBC) [Entitic vol] 86.2 fL Normal 80-[address] [facility] Comment on above: Performed By: #### V [id number], TSH3 wRFLX, LIPID #### [facility] [address] [place] [id number] [facility] Monocyte distribution width [Entitic volume] in Blood by AutomatedOrdered By: Goyo Epps on 11-14-2024 Monocyte distribution width Auto (Bld) [Entitic vol] Monocyte distribution width [Entitic volume] in Blood by Automated 0.00-20.[address] [facility] Monocyte distribution width Auto (Bld) [Entitic vol] 18.51 % 0.00-20.[address] [facility] Monocytes Auto (Bld) [#/Vol] Ordered By: Goyo Epps on 11-14-2024 Monocytes (Bld) [#/Vol] Automated blood monocyte count 0.0-0.[address] [facility] Monocytes [#/volume] in Bloo d by Automated countOrdered By: Goyo Epps on 11-14-2024 Monocytes (Bld) [#/Vol] 0.5 10*3/uL Normal 0.0-0.[address] [facility] Comment on above: Performed By: #### V [id number], TSH3 wRFLX, LIPID #### [facility] [address] [place] [id number] [facility] Monocytes/100 WBC Auto (Bld) Ordered By: Goyo Epps on 11-14-2024 Monocytes/100 WBC (Bld) Automated monocyte % . [facility] Monocytes/100 leukocytes in Blood by Automated countOrdered By: Goyo Epps on 11-14-2024 Monocytes/100 WBC (Bld) 7.3 % Normal . [facility] Comment on above: Performed By: #### V [id number], TSH3 wRFLX, LIPID #### [facility] [address] [place] [id number] [facility] Mucus [Presence] in Urine by AutomatedOrdered By: Goyo Epps on 11-14-2024 Mucus Auto Ql (U) Mucus [Presence] in Urine by Automated Abnormal [facility] Mucus Auto Ql (U) 1+ [LPF] Abnormal [facility] Neutrophils Auto (Bld) [#/Vo l]Ordered By: Goyo Epps on 11-14-2024 Neutrophils (Bld) [#/Vol] Neutrophils [#/volume] in Blood by Automated count 1.8-7.[address] [facility] Neutrophils [#/volume] in Bl ood by Automated countOrdered By: Goyo Epps on 11-14-2024 Neutrophils (Bld) [#/Vol] 3.7 10*3/uL Normal 1.8-7.[address] [facility] Comment on above: Performed By: #### V [id number], TSH3 wRFLX, LIPID #### [facility] [address] [place] [address] [place] Neutrophils/100 WBC Auto (Bl d)Ordered By: Goyo Epps on 11-14-2024 Neutrophils/100 WBC (Bld) Automated neutrophil % . [facility] Neutrophils/100 leukocytes i n Blood by Automated countOrdered By: Goyo Epps on 11-14-2024 Neutrophils/100 WBC (Bld) 52.4 % Normal . [facility] Comment on above: Performed By: #### V [id number], TSH3 wRFLX, LIPID #### [facility] [address] Nitrite Test strip Ql (U)Ord ered By: Goyo Epps on 11-14-2024 Nitrite Ql (U) Nitrite [Presence] i n Urine by Test strip Negative [facility] Nitrite Ql (U) Negative Negative [facility] No Panel InformationOrdered By: Goyo Epps on 11-14-2024 Estimated GFR (CKD-EPI) > 60.0 mL/Min [facility] Creatinine Clearance (Chem 142.[address] [facility] Nucleated erythrocytes [Pres ence] in Blood by Automated countOrdered By: Goyo Epps on 11-14-2024 Nucleated RBC Auto Ql (Bld) Nucleated erythrocytes [Presence] in Blood by Automated count 0-0.[address] [facility] Nucleated RBC Auto Ql (Bld) 0.1 /100{WBC} 0-0.[address] [facility] Opiates [Presence] in Urine by Screen methodOrdered By: Goyo Epps on 11-14-2024 Opiates Screen Ql (U) Opiates [Presence] in Urine by Screen method Negative [facility] Opiates Screen Ql (U) Negative Negative [facility] Phencyclidine Screen Ql (U)O rdered By: Goyo Epps on 11-14-2024 Phencyclidine Ql (U) Phencyclidine [Pres ence] in Urine by Screen method Negative [facility] Phencyclidine Ql (U) Negative Negative [facility] Platelet mean volume Auto (B ld) [Entitic vol]Ordered By: Goyo Epps on 11-14-2024 Platelet mean volume (Bld) [Entitic vol] Platelet mean volume [Entitic volume] in Blood by Automated count 6.3-10.[address] [facility] Platelet mean volume [Entiti c volume] in Blood by Automated countOrdered By: Goyo Epps on 11-14-2024 Platelet mean volume (Bld) [Entitic vol] 7.7 fL Normal 6.3-10.7 [facility] [facility] Comment on above: Performed By: #### V [id number], TSH3 wRFLX, LIPID #### [facility] [address] [place] [address] Platelets Auto (Bld) [#/Vol] Ordered By: Goyo Epps on 11-14-2024 Platelets (Bld) [#/Vol] Platelets [#/volume] in Blood by Automated count 150-[address] [facility] Platelets [#/volume] in Bloo d by Automated countOrdered By: Goyo Epps on 11-14-2024 Platelets (Bld) [#/Vol] 231 10*3/uL Normal 150-[address] [facility] Comment on above: Performed By: #### V [id number], TSH3 wRFLX, LIPID #### [facility] [address] [place] [address] [place] Potassium [Moles/volume] in Serum or PlasmaOrdered By: Goyo Epps on 11-14-2024 Potassium [Moles/Vol] Potassium [Moles/v olume] in Serum or Plasma 3.5-5.[address] [facility] Potassium [Moles/Vol] 3.7 mmol/L Normal 3.5-5.1 [facility] Comment on above: Performed By: #### V [id number], TSH3 wRFLX, LIPID #### [facility] [address] [place] [address] Protein Test strip (U) [Mass /Vol]Ordered By: Goyo Epps on 11-14-2024 Protein (U) [Mass/Vol] Protein [Mass/volume] in Urine by Test strip High Negative [facility] Protein [Mass/volume] in Ser um or PlasmaOrdered By: Goyo Epps on 11-14-2024 Protein [Mass/Vol] Protein [Mass/volume ] in Serum or Plasma 6.4-8.[address] [facility] Protein [Mass/Vol] 7.1 g/dL Normal 6.4-8.9 [facility] Comment on above: Performed By: #### V [id number], TSH3 wRFLX, LIPID #### [facility] [address] Protein [Mass/volume] in Uri ne by Test stripOrdered By: Goyo Epps on 11-14-2024 Protein (U) [Mass/Vol] 20 mg/dL High Negative [facility] Comment on above: Order Comment: Name Collection Type:: Clean-Voided Midstream Performed By: #### C BC, [id number], T4F, ETOH, LIPID, CMP, TSH3 wRFLX #### [facility] [address] [place] [address] RBC Auto (Bld) [#/Vol]Ordere d By: Goyo Epps on 11-14-2024 RBC (Bld) [#/Vol] Erythrocytes [#/volu me] in Blood by Automated count 3.60-5.[address] [facility] Serum globulin measurement b y calculation (mass/volume)Ordered By: Goyo Epps on 11-14-2024 Globulin (S) [Mass/Vol] 2.8 g/dL Normal [facility] Comment on above: Performed By: #### V [id number], TSH3 wRFLX, LIPID #### [facility] [address] [place] [address] Serum or plasma albumin/glob ulin mass ratioOrdered By: Goyo Epps on 11-14-2024 Albumin/Globulin [Mass ratio] Serum or plasma albumin/globulin mass ratio [facility] Albumin/Globulin [Mass ratio] 1.5 {ratio} Normal [facility] Comment on above: Performed By: #### V [id number], TSH3 wRFLX, LIPID #### [facility] [address] Serum or plasma anion gap de terminationOrdered By: Goyo Epps on 11-14-2024 Anion gap [Moles/Vol] Serum or plasma an ion gap determination 6.0-15.[address] [facility] Anion gap [Moles/Vol] 9.9 mmol/L Normal 6.0-15.0 [facility] Comment on above: Performed By: #### V [id number], TSH3 wRFLX, LIPID #### [facility] [address] Serum or plasma ethanol alayna urement (mass/volume)Ordered By: Goyo Epps on 11-14-2024 Ethanol [Mass/Vol] TNP [facility] Comment on above: Test not performed Serum or plasma total choles terol/high density lipoprotein (HDL) cholesterol mass ratOrdered By: Goyo Epps on 11-14-2024 Cholesterol.total/Cho lesterol in HDL [Mass ratio] Serum or plasma total cholesterol/high density lipoprotein (HDL) cholesterol mass rat <5.[address] [facility] Cholesterol.total/Cho lesterol in HDL [Mass ratio] 2.9 {ratio} Normal <5.[address] [facility] Comment on above: Performed By: #### V [id number], TSH3 wRFLX, LIPID #### [facility] [address] [place] [address] [place] Sodium [Moles/volume] in Ser um or PlasmaOrdered By: Goyo Epps on 11-14-2024 Sodium [Moles/Vol] Sodium [Moles/volume ] in Serum or Plasma 136-[address] [facility] Sodium [Moles/Vol] 139 mmol/L Normal 136-145 [facility] Comment on above: Performed By: #### V [id number], TSH3 wRFLX, LIPID #### [facility] [address] [place] [id number] [place] Specific gravity Test strip (U) [Rel density]Ordered By: Goyo Epps on 11-14-2024 Specific gravity (U) [Rel density] Specific gravity of Urine by Test strip High 1.001-1.[address] [facility] Specific gravity (U) [Rel density] 1.031 High 1.001-1.[address] [facility] Thyroid Stim Hormone w/Rflxo n 11-14-2024 Thyroid Stim Hormone w/Rflx 2.22 u[iU]/mL Normal 0.45-5.33 [facility] Comment on above: Performed By: #### V [id number], TSH3 wRFLX, LIPID #### [address] Thyrotropin [Units/volume] i n Serum or PlasmaOrdered By: Goyo Epps on 11-14-2024 TSH Qn Thyrotropin [Units/volume] in Serum or Plasma 0.45-5.[address] [facility] TSH Qn 2.22 m[IU]/L 0.45-5.[address] [facility] Triglyceride [Mass/volume] i n Serum or PlasmaOrdered By: Goyo Epps on 11-14-2024 Triglyceride [Mass/Vol] Triglyceride [Mass/volume] in Serum or Plasma 0-[address] [facility] Comment on above: TRIG ATP III CLASSIF ICATIONTRIG less than 150 mg/dL NormalTRIG 150-199 mg/dL Borderline highTRIG 200-500 mg/dL High TRIG greater than 500 mg/dL Very highStandard traceable to the Center for Disease Conrtrol and Prevention (CDC) test method. Triglyceride [Mass/Vol] 56 mg/dL 0-[address] [facility] Comment on above: TRIG ATP III CLASSIF ICATIONTRIG less than 150 mg/dL NormalTRIG 150-199 mg/dL Borderline highTRIG 200-500 mg/dL High TRIG greater than 500 mg/dL Very highStandard traceable to the Center for Disease Conrtrol and Prevention (CDC) test method. Urea nitrogen [Mass/volume] in Serum or PlasmaOrdered By: Goyo Epps on 11-14-2024 Urea nitrogen [Mass/Vol] Urea nitrogen [Mass/volume] in Serum or Plasma [address] [facility] Urea nitrogen [Mass/Vol] 10 mg/dL Normal -[address] [facility] Comment on above: Performed By: #### V [id number], TSH3 wRFLX, LIPID #### [facility] [address] Urobilinogen Test strip (U) [Mass/Vol]Ordered By: Goyo Epps on 11-14-2024 Urobilinogen (U) [Mass/Vol] Urobilinogen [Mass/volume] in Urine by Test strip High Normal [facility] Urobilinogen (U) [Mass/Vol] 2 mg/dL High Normal [facility] Vitamin D 25 Hydroxy Totalon 11-14-2024 Vitamin D 25 Hydroxy Total 8.5 ng/mL Low 30-100 [facility] Comment on above: Result Comment: CEM MIN D STATUS 25([place])VITAMIN D RANGE (ng/mL) Deficient <20 Insufficient 20 to <30 Sufficient 30 to 100 Reference: Roly Trevino, Kassidy SHAH, et al. Evaluation,treatment, and prevention of vitamin D deficiency; an Endocrine Society clinical practice guideline. JCEM. 2010; 96(7):1911-. PERFORMED BY: [place] [address] PATHOLOGIST TIME STUDY ANALYST AMBER HENNING M.D. Performed By: #### V [id number], TSH3 wRFLX, LIPID #### [facility] [address] [place], [place] [id number] [facility] Vitamin D+Metabolites [Mass/ volume] in Serum or PlasmaOrdered By: Goyo Epps on 11-14-2024 Vitamin D+Metabolites [Mass/Vol] Vitamin D+Metabolites [Mass/volume] in Serum or Plasma Low 30-[address] [facility] Comment on above: VITAMIN D STATUS 25( [place])VITAMIN D RANGE (ng/mL) Deficient <20 Insufficient 20 to <30Sufficient 30 to 100Reference: Roly Trevino, Kassidy SHAH, et al. Evaluation,treatment, and prevention of vitamin D deficiency; an Endocrine Society clinical practice guideline. JCEM. 2010; 96(7):1911-. Vitamin D+Metabolites [Mass/Vol] 8.5 ng/mL Low 30-[address] [facility] Comment on above: VITAMIN D STATUS 25( [place])VITAMIN D RANGE (ng/mL) Deficient <20 Insufficient 20 to <30Sufficient 30 to 100Reference: Malou MF,Roly CUEVAS, Kassidy SHAH, et al. Evaluation,treatment, and prevention of vitamin D deficiency; an Endocrine Society clinical practice guideline. JCEM. 2010; 96(7):1911-30. WBC Auto (Bld) [#/Vol]Ordere d By: Goyo Epps on 11-14-2024 WBC (Bld) [#/Vol] Leukocytes [#/volume ] in Blood by Automated count 3.8-11.[address] [facility] pH Test strip (U)Ordered By: Goyo Epps on 11-14-2024 pH (U) pH of Urine by Test strip 5.0-9.[address] [facility] pH of Urine by Test stripOrd ered By: Goyo Epps on 11-14-2024 pH (U) 7.0 [pH] Normal 5.0-9.[address] [facility] Comment on above: Order Comment: Name Collection Type:: Clean-Voided Midstream Performed By: #### C BC, [id number], T4F, ETOH, LIPID, CMP, TSH3 wRFLX #### [address] ECG 12 lead ECGon 11-07-2024 ECG 12 lead ECG [facility] [place] [address] Electrocardiograph Report Signed Patient: Barbra Claros MR#: [id number] : 1995 Acct:[id number] Age/Sex: 29 / F ADM Date: 11/07/24 Loc: Room: [address] [place] [address] Type: ADM IN Attending Dr: Kit Gutierrez [...] Juarez MD 0 11/07/24 1739 Normal [facility] Alanine aminotransferase [En zymatic activity/volume] in Serum or PlasmaOrdered By: Duane Simons on 11-06-2024 ALT [Catalytic activity/Vol] Alanine aminotransferase [Enzymatic activity/volume] in Serum or Plasma [facility] ALT [Catalytic activity/Vol] 11 U/L Normal [facility] Comment on above: Performed By: #### V [id number], TSH3 wRFLX, LIPID #### [facility] [address] [place] [address] [place] Albumin [Mass/volume] in Ser um or Plasma by Bromocresol green (BCG) dye binding methoOrdered By: Duane Simons on 11-06-2024 Albumin BCG dye [Mass/Vol] Albumin [Mass/volume] in Serum or Plasma by Bromocresol green (BCG) dye binding metho 3.5-5.[address] [facility] Albumin BCG dye [Mass/Vol] 4.5 g/dL 3.5-5.[address] [facility] Alkaline phosphatase [Enzyma tic activity/volume] in Serum or PlasmaOrdered By: Duane Simons on 11-06-2024 ALP [Catalytic activity/Vol] Alkaline phosphatase [Enzymatic activity/volume] in Serum or Plasma [address] [facility] ALP [Catalytic activity/Vol] 52 U/L Normal [facility] Comment on above: Performed By: #### V [id number], TSH3 wRFLX, LIPID #### [facility] [address] [place] [address] [place] Amphetamine Screen Ql (U)Ord ered By: Duane Simons on 11-06-2024 Amphetamines Ql (U) Amphetamines screen Negativ e [facility] Amphetamines Ql (U) Negative Negative [facility] Appearance of UrineOrdered B y: Duane Ronak on 11-06-2024 Appearance (U) Urine appearance Clear [facility] Appearance (U) Clear Normal Clear [facility] Comment on above: Order Comment: Name Collection Type:: Clean-Voided Midstream Performed By: #### C BC, [id number], T4F, ETOH, LIPID, CMP, TSH3 wRFLX #### [facility] [address] Aspartate aminotransferase [ Enzymatic activity/volume] in Serum or PlasmaOrdered By: Duane Simons on 11-06-2024 AST [Catalytic activity/Vol] Aspartate aminotransferase [Enzymatic activity/volume] in Serum or Plasma [facility] AST [Catalytic activity/Vol] 13 U/L Normal - [facility] Comment on above: Performed By: #### V [id number], TSH3 wRFLX, LIPID #### [facility] [address] [place] [address] [place] Bacteria [Presence] in Urine by AutomatedOrdered By: Duane Simons on 11-06-2024 Bacteria Auto Ql (U) Bacteria [Presence] in Urine by Automated None Seen [facility] Bacteria Auto Ql (U) None seen [HPF] None Seen [facility] Barbiturates [Presence] in U rine by Screen methodOrdered By: Duane Simons on 11-06-2024 Barbiturates Screen Ql (U) Barbiturates [Presence] in Urine by Screen method Negative [facility] Barbiturates Screen Ql (U) Negative Negative [facility] Basophils Auto (Bld) [#/Vol] Ordered By: Duane Simons on 11-06-2024 Basophils (Bld) [#/Vol] Automated basophil count 0.0-0.2 [facility] Basophils [#/volume] in Bloo d by Automated countOrdered By: Duane Simons on 11-06-2024 Basophils (Bld) [#/Vol] 0.0 10*3/uL Normal 0.0-0.[address] [facility] Comment on above: Result Comment: PERF ORMED BY: [facility] [address] [place] [address] PATHOLOGIST TIME STUDY ANALYST ZULEIMA ZHANG M.D. Performed By: #### V [id number], TSH3 wRFLX, LIPID #### [facility] [address] Basophils/100 WBC Auto (Bld) Ordered By: Duane Simons on 11-06-2024 Basophils/100 WBC (Bld) Automated basophil % . [facility] Basophils/100 leukocytes in Blood by Automated countOrdered By: Duane Simons on 11-06-2024 Basophils/100 WBC (Bld) 0.5 % Normal . [facility] Comment on above: Performed By: #### V [id number], TSH3 wRFLX, LIPID #### [facility] [address] Benzodiazepines Screen Ql (U )Ordered By: Duane Simons on 11-06-2024 Benzodiazepines Ql (U) Benzodiazepines [Presence] in Urine by Screen method Negative [facility] Benzodiazepines Ql (U) Negative Negative [facility] Benzoylecgonine [Presence] i n Urine by Screen methodOrdered By: Duane Simons on 11-06-2024 Benzoylecgonine Screen Ql (U) Benzoylecgonine [Presence] in Urine by Screen method Negative [facility] Benzoylecgonine Screen Ql (U) Negative Negative [facility] Bilirubin Test strip Ql (U)O rdered By: Duane Simons on 11-06-2024 Bilirubin Ql (U) Bilirubin.total [Presence] in Urine by Test strip Negative [facility] Bilirubin Ql (U) Negative Negative [place] Bilirubin.total [Mass/volume ] in Serum or PlasmaOrdered By: Duane Simons on 11-06-2024 Bilirubin [Mass/Vol] Bilirubin.total [Mass/volume] in Serum or Plasma 0.3-1.[address] [facility] Bilirubin [Mass/Vol] 0.3 mg/dL Normal 0.3-1.0 [facility] Comment on above: Performed By: #### V [id number], TSH3 wRFLX, LIPID #### [facility] [address] [place] [address] [place] Calcium [Mass/volume] in Ser um or PlasmaOrdered By: Duane Simons on 11-06-2024 Calcium [Mass/Vol] Calcium [Mass/volume ] in Serum or Plasma 8.6-10.[address] [facility] Calcium [Mass/Vol] 9.1 mg/dL Normal 8.6-10.3 [facility] Comment on above: Performed By: #### V [id number], TSH3 wRFLX, LIPID #### [facility] [address] Cannabinoids [Presence] in U rine by Screen methodOrdered By: Duane Simons on 11-06-2024 Cannabinoids Screen Ql (U) Cannabinoids [Presence] in Urine by Screen method High Negative [facility] Comment on above: These are unconfirme d results and should not be used for legal purposes. Drug Cut-Off Concentration: AMPH 1000 ng/mL FIONA 200 ng/mL KIMMY 200 ng/mL COCM 300 ng/mL OP 300 ng/mL PCP 25 ng/mL THC 20 ng/mL Cannabinoids Screen Ql (U) Positive High Negative [facility] Comment on above: These are unconfirme [...] l [Moles/volume] in Serum or Plasma 21.0-31.[address] [facility] CO2 [Moles/Vol] 27.1 mmol/L Normal 21.0-31.0 [place] Comment on above: Performed By: #### V [id number], TSH3 wRFLX, LIPID #### [facility] [address] [place] [id number] [place] Chloride [Moles/volume] in S karla or PlasmaOrdered By: Duane Simons on 11-06-2024 Chloride [Moles/Vol] Chloride [Moles/vol ume] in Serum or Plasma 98-[address] [facility] Chloride [Moles/Vol] 106 mmol/L Normal 98-107 [facility] Comment on above: Performed By: #### V [id number], TSH3 wRFLX, LIPID #### [facility] [address] [place] [address] [place] Cholesterol [Mass/volume] in Serum or PlasmaOrdered By: Kit Gutierrez on 11-06-2024 Cholesterol [Mass/Vol] Cholesterol [Mass/volume] in Serum or Plasma 140-[address] [facility] Comment on above: Chol less than 200 m g/dl low riskChol 201-239 mg/dl borderline riskChol 240 mg/dl and greater high risk Cholesterol [Mass/Vol] 149 mg/dL Normal 140-[address] [facility] Comment on above: Chol less than 200 m g/dl low riskChol 201-239 mg/dl borderline riskChol 240 mg/dl and greater high risk Result Comment: Chol less than 200 mg/dl low risk Chol 201-239 mg/dl borderline risk Chol 240 mg/dl and greater high risk Performed By: #### V [id number], TSH3 wRFLX, LIPID #### [facility] [address] [place] [id number] [place] Cholesterol in HDL [Mass/vol ume] in Serum or PlasmaOrdered By: Kit Gutierrez on 11-06-2024 Cholesterol in HDL [Mass/Vol] Serum or plasma high density lipoprotein (HDL) cholesterol measurement [facility] Comment on above: HDL CHOL ATP-III CLA SSIFICATION Cardiovascular RiskHDL > or equal to 60 mg/dL LOWHDL < 40 mg/dL HIGH Cholesterol in HDL [Mass/Vol] 44 mg/dL Normal [facility] Comment on above: HDL CHOL ATP-III CLA SSIFICATION Cardiovascular RiskHDL > or equal to 60 mg/dL LOWHDL < 40 mg/dL HIGH Result Comment: HDL CHOL ATP-III CLASSIFICATION Cardiovascular Risk HDL > or equal to 60 mg/dL LOW HDL < 40 mg/dL HIGH Performed By: #### V [id number], TSH3 wRFLX, LIPID #### [facility] [address] [place] [id number] [place] Cholesterol in LDL Calc [Mas s/Vol]Ordered By: Kit Gutierrez on 11-06-2024 Cholesterol in LDL [Mass/Vol] Cholesterol in LDL [Mass/volume] in Serum or Plasma by calculation [address] [facility] Comment on above: LDL ATP III CLASSIFI CATIONLDL less than 100 mg/dL OptimalLDL 100-129 mg/dL Near or above optimalLDL 130-159 mg/dL Borderline highLDL 160-189 mg/dL HighLDL greater than 189 mg/dL Very high Cholesterol in LDL [Mass/Vol] 96 mg/dL 0-[address] [facility] Comment on above: LDL ATP III CLASSIFI CATIONLDL less than 100 mg/dL OptimalLDL 100-129 mg/dL Near or above optimalLDL 130-159 mg/dL Borderline highLDL 160-189 mg/dL HighLDL greater than 189 mg/dL Very high Cholesterol in VLDL Calc [Ma ss/Vol]Ordered By: Kit Gutierrez on 11-06-2024 Cholesterol in VLDL [Mass/Vol] Cholesterol in VLDL [Mass/volume] in Serum or Plasma by calculation [facility] Cholesterol in VLDL [Mass/Vol] 8 mg/dL [facility] Color Auto (U)Ordered By: Avila Simons on 11-06-2024 Color (U) Color of Urine by Auto Yellow [facility] Color of Urine by AutoOrdere d By: Duane Simons on 11-06-2024 Color (U) Light-yellow Normal Yellow [facility] Comment on above: Order Comment: Name Collection Type:: Clean-Voided Midstream Performed By: #### C BC, [id number], T4F, ETOH, LIPID, CMP, TSH3 wRFLX #### [facility] [address] [place] [address] [place] Complete Blood Count Auto Di ffon 11-06-2024 Mean Corpuscular HGB Conc 34.2 g/dL Normal 32.0-35.0 [facility] Comment on above: Performed By: #### V [id number], TSH3 wRFLX, LIPID #### [facility] [address] [place] [address] [place] Monocytes/100 WBC (Bld) 18.05 % Normal 0.00-20.00 [facility] Comment on above: Performed By: #### V [id number], TSH3 wRFLX, LIPID #### [address] NRBC% 0.1 /100{WBC} Normal 0-0.5 [facility] Comment on above: Performed By: #### V [id number], TSH3 wRFLX, LIPID #### [address] Comprehensive Metabolic Pane [place]aine 11-06-2024 Albumin [Mass/Vol] 4.5 g/dL Normal 3.5-5.7 [facility] Comment on above: Performed By: #### V [id number], TSH3 wRFLX, LIPID #### [address] Creatinine Clr Calc Pharmacy 112.89 Normal [facility] Comment on above: Result Comment: PERF ORMED BY: [place] [address] PATHOLOGIST TIME STUDY ANALYST ZULEIMA ZHANG M.D. Performed By: #### V [id number], TSH3 wRFLX, LIPID #### [address] GFR/1.73 sq M.predicted MDRD (S/P/Bld) [Vol rate/Area] mL/min/{1.73_m2} Normal [facility] Comment on above: Performed By: #### V [id number], TSH3 wRFLX, LIPID #### [address] Creatinine [Mass/volume] in Serum or PlasmaOrdered By: Duane Simons on 11-06-2024 Creatinine [Mass/Vol] Creatinine [Mass/v olume] in Serum or Plasma 0.60-1.[address] [facility] Creatinine [Mass/Vol] 0.67 mg/dL Normal 0.60-1.20 [facility] Comment on above: Performed By: #### V [id number], TSH3 wRFLX, LIPID #### [address] [place] [address] [place] Dipstick and Microscopicon 0 - Bacteria,Urine None Seen Normal None Seen [facility] Comment on above: Order Comment: Name Collection Type:: Clean-Voided Midstream Performed By: #### C BC, [id number], T4F, ETOH, LIPID, CMP, TSH3 wRFLX #### [facility] [address] Bilirubin,Urine Negative Normal Negative [facility] Comment on above: Order Comment: Name Collection Type:: Clean-Voided Midstream Performed By: #### C BC, [id number], T4F, ETOH, LIPID, CMP, TSH3 wRFLX #### [address] Glucose Ql (U) Normal Normal Normal [facility] Comment on above: Order Comment: Name Collection Type:: Clean-Voided Midstream Performed By: #### C BC, [id number], T4F, ETOH, LIPID, CMP, TSH3 wRFLX #### [address] Hyaline Casts,Urine None Normal 0-8 [facility] Comment on above: Order Comment: Name Collection Type:: Clean-Voided Midstream Performed By: #### C BC, [id number], T4F, ETOH, LIPID, CMP, TSH3 wRFLX #### [place] [address] [place] Nitrite,Urine Negative Normal Negative [facility] Comment on above: Order Comment: Name Collection Type:: Clean-Voided Midstream Performed By: #### C BC, [id number], T4F, ETOH, LIPID, CMP, TSH3 wRFLX #### [facility] [address] [place] [id number] [place] Occult Blood,Urine Trace High Negative [facility] Comment on above: Order Comment: Name Collection Type:: Clean-Voided Midstream Performed By: #### C BC, [id number], T4F, ETOH, LIPID, CMP, TSH3 wRFLX #### [address] Protein,Urine Negative Normal Negative [facility] Comment on above: Order Comment: Name Collection Type:: Clean-Voided Midstream Performed By: #### C BC, [id number], T4F, ETOH, LIPID, CMP, TSH3 wRFLX #### [address] RBC,Urine None Seen Normal 0-4 [facility] Comment on above: Order Comment: Name Collection Type:: Clean-Voided Midstream Performed By: #### C BC, [id number], T4F, ETOH, LIPID, CMP, TSH3 wRFLX #### [address] Specificy [place],Urine 1.015 Normal 1.001-1.030 [facility] Comment on above: Order Comment: Name Collection Type:: Clean-Voided Midstream Performed By: #### C BC, [id number], T4F, ETOH, LIPID, CMP, TSH3 wRFLX #### [address] Urobilinogen,Urine Normal Normal Normal [facility] Comment on above: Order Comment: Name Collection Type:: Clean-Voided Midstream Performed By: #### C BC, [id number], T4F, ETOH, LIPID, CMP, TSH3 wRFLX #### [address] WBC,Urine 1-2 Normal 0-4 [facility] Comment on above: Order Comment: Name Collection Type:: Clean-Voided Midstream Performed By: #### C BC, [id number], T4F, ETOH, LIPID, CMP, TSH3 wRFLX #### [address] Drug Screen,Urineon 11-07-19 25 Amphetamine Screen,Urine Negative Normal Negative [facility] [facility] Comment on above: Performed By: #### V [id number], TSH3 wRFLX, LIPID #### [address] Barbiturate Screen,Urine Negative Normal Negative [facility] Comment on above: Performed By: #### V [id number], TSH3 wRFLX, LIPID #### [address] Benzodiazepines Screen,Urine Negative Normal Negative [facility] Comment on above: Performed By: #### V [id number], TSH3 wRFLX, LIPID #### [address] Cannabinoid Screen,Urine Positive High Negative [facility] Comment on above: Result Comment: Thes e are unconfirmed results and should not be used for legal purposes. Drug Cut-Off Concentration: AMPH 1000 ng/mL FIONA 200 ng/mL KIMMY 200 ng/mL COCM 300 ng/mL OP 300 ng/mL PCP 25 ng/mL THC 20 ng/mL PERFORMED BY: [place] [id number] PATHOLOGIST TIME STUDY ANALYST ZULEIMA ZHANG M.D. Performed By: #### V [id number], TSH3 wRFLX, LIPID #### [address] Cocaine Screen,Urine Negative Normal Negative [facility] Comment on above: Performed By: #### V [id number], TSH3 wRFLX, LIPID #### [address] Opiate Screen,Urine Negative Normal Negative [facility] Comment on above: Performed By: #### V [id number], TSH3 wRFLX, LIPID #### [place] [address] [place] Phencyclidine Screen,Urine Negative Normal Negative [facility] Comment on above: Performed By: #### V [id number], TSH3 wRFLX, LIPID #### [place] [address] [place] Eosinophils Auto (Bld) [#/Vo l]Ordered By: Duane Simons on 11-06-2024 Eosinophils (Bld) [#/Vol] Automated eosinophil count 0.0-0.[address] [facility] Eosinophils [#/volume] in Bl ood by Automated countOrdered By: Duane Simons on 11-06-2024 Eosinophils (Bld) [#/Vol] 0.0 10*3/uL Normal 0.0-0.[address] [facility] Comment on above: Performed By: #### V [id number], TSH3 wRFLX, LIPID #### [facility] [address] [place] [address] [place] Eosinophils/100 WBC Auto (Bl d)Ordered By: Duane Simons on 11-06-2024 Eosinophils/100 WBC (Bld) Automated eosinophil % . [facility] Eosinophils/100 leukocytes i n Blood by Automated countOrdered By: Duane Simons on 11-06-2024 Eosinophils/100 WBC (Bld) 0.1 % Normal . [facility] Comment on above: Performed By: #### V [id number], TSH3 wRFLX, LIPID #### [facility] [address] Epithelial cells.squamous [# /area] in Urine sediment by Automated countOrdered By: Duane Simons on 11-06-2024 Epithelial cells.squamous Auto (Urine sed) [#/Area] Epithelial cells.squamous [#/area] in Urine sediment by Automated count [facility] Epithelial cells.squamous Auto (Urine sed) [#/Area] N/A [facility] Erythrocyte distribution wid th Auto (RBC) [Ratio]Ordered By: Duane Simons on 11-06-2024 Erythrocyte distribution width (RBC) [Ratio] Erythrocyte distribution width [Ratio] by Automated count 11.9-15.[address] [facility] Erythrocyte distribution wid th [Ratio] by Automated countOrdered By: Duane Simons on 11-06-2024 Erythrocyte distribution width (RBC) [Ratio] 14.8 % Normal 11.9-15.[address] [facility] Comment on above: Performed By: #### V [id number], TSH3 wRFLX, LIPID #### [facility] [address] [place] [address] [place] Erythrocytes [#/area] in Uri ne sediment by Automated countOrdered By: Duane Simons on 11-06-2024 RBC Auto (Urine sed) [#/Area] Erythrocytes [#/area] in Urine sediment by Automated count 0-[address] [facility] RBC Auto (Urine sed) [#/Area] None seen [HPF] 0-[address] [facility] Erythrocytes [#/volume] in B lood by Automated countOrdered By: Duane Simons on 11-06-2024 RBC (Bld) [#/Vol] 4.27 10*6/uL Normal 3.60-5.00 [facility] Comment on above: Performed By: #### V [id number], TSH3 wRFLX, LIPID #### [facility] [address] [place] [address] Ethanol [Mass/volume] in Ser um or PlasmaOrdered By: Duane Simons on 11-06-2024 Ethanol [Mass/Vol] Ethanol [Mass/volume ] in Serum or Plasma [facility] Comment on above: Test not performed Ethanol [Mass/Vol] mg/dL Normal [facility] Comment on above: Performed By: #### V [id number], TSH3 wRFLX, LIPID #### [facility] [address] [place] [address] Ethyl Alcohol Profileon 10-18 Percent Ethanol Not performed Normal [facility] Comment on above: Result Comment: PERF ORMED BY: [place] [id number] PATHOLOGIST TIME STUDY ANALYST ZULEIMA ZHANG M.D. Performed By: #### V [id number], TSH3 wRFLX, LIPID #### [facility] [address] [place] [address] Globulin Calc (S) [Mass/Vol] Ordered By: Duane Simons on 11-06-2024 Globulin (S) [Mass/Vol] Serum globulin measurement by calculation (mass/volume) [facility] Glucose [Mass/volume] in Ser um or PlasmaOrdered By: Duane Simons on 11-06-2024 Glucose [Mass/Vol] Glucose [Mass/volume ] in Serum or Plasma 70-[address] [facility] Comment on above: ADA recommended refe rence rangeRandom Glucose Reference Range is dependent on time and content of last meal. Glucose of more than 200 mg/dL in a nonstressed, ambulatory subject supports the diagnosis of Diabetes Mellitus. Glucose [Mass/Vol] 89 mg/dL Normal 70-100 [facility] Comment on above: ADA recommended refe rence rangeRandom Glucose Reference Range is dependent on time and content of last meal. Glucose of more than 200 mg/dL in a nonstressed, ambulatory subject supports the diagnosis of Diabetes Mellitus. Result Comment: [place] om Glucose Reference Range is dependent on time and content of last meal. Glucose of more than 200 mg/dL in a nonstressed, ambulatory subject supports the diagnosis of Diabetes Mellitus. ADA recommended reference range Performed By: #### V [id number], TSH3 wRFLX, LIPID #### [facility] [address] [place] [address] Glucose [Mass/volume] in Uri ne by Test stripOrdered By: Duane Simons on 11-06-2024 Glucose Test strip (U) [Mass/Vol] Glucose [Mass/volume] in Urine by Test strip Normal [facility] Glucose Test strip (U) [Mass/Vol] Normal mg/dL Normal [facility] HCG ( test) IA.rapi d Ql (U)Ordered By: Duane Simons on 11-06-2024 HCG ( test) Ql (U) Urine human chorionic gonadotropin (hCG) detection by immunoassay [facility] HCG ( test) Ql (U) Negative [facility] HCG,Urineon 11-06-2024 Beta HCG ( test) Ql (U) Negative Normal [facility] Comment on above: Order Comment: Name Collection Type:: Clean-Voided Midstream Result Comment: PERF ORMED BY: [place] [id number] PATHOLOGIST TIME STUDY ANALYST ZULEIMA ZHANG M.D. Performed By: #### C BC, [id number], T4F, ETOH, LIPID, CMP, TSH3 wRFLX #### [facility] [address] [place] [address] Hematocrit Auto (Bld) [Volum e fraction]Ordered By: Duane Simons on 11-06-2024 Hematocrit (Bld) [Volume fraction] Hematocrit [Volume Fraction] of Blood by Automated count 34.0-46.[address] [facility] Hematocrit [Volume Fraction] of Blood by Automated countOrdered By: Duane Simons on 11-06-2024 Hematocrit (Bld) [Volume fraction] 36.8 % Normal 34.0-46.[address] [facility] Comment on above: Performed By: #### V [id number], TSH3 wRFLX, LIPID #### [facility] [address] Hemoglobin Test strip Ql (U) Ordered By: Duane Simons on 11-06-2024 Hemoglobin Ql (U) Hemoglobin [Presence ] in Urine by Test strip High Negative [facility] Hemoglobin Ql (U) Trace High Negative [facility] Hemoglobin [Mass/volume] in BloodOrdered By: Duane Simons on 11-06-2024 Hemoglobin (Bld) [Mass/Vol] Hemoglobin [Mass/volume] in Blood 11.8-15.[address] [facility] Hemoglobin (Bld) [Mass/Vol] 12.6 g/dL Normal 11.8-15.[address] [facility] Comment on above: Performed By: #### V [id number], TSH3 wRFLX, LIPID #### [address] Hyaline casts [#/area] in Ur ine sediment by Automated countOrdered By: Duane Simons on 11-06-2024 Hyaline casts Auto (Urine sed) [#/Area] Hyaline casts [#/area] in Urine sediment by Automated count 0-[address] [facility] Hyaline casts Auto (Urine sed) [#/Area] None [LPF] 0-[address] [facility] Ketones Test strip Ql (U)Ord ered By: Duane Simons on 11-06-2024 Ketones Ql (U) Ketones [Presence] i n Urine by Test strip Negative [facility] Ketones [Presence] in Urine by Test stripOrdered By: Duane Simons on 11-06-2024 Ketones Ql (U) Negative Normal Negative [facility] Comment on above: Order Comment: Name Collection Type:: Clean-Voided Midstream Performed By: #### C BC, [id number], T4F, ETOH, LIPID, CMP, TSH3 wRFLX #### [facility] [address] [place] [address] [place] Leukocyte esterase [Presence ] in Urine by Test stripOrdered By: Duane Simons on 11-06-2024 Leukocyte esterase Test strip Ql (U) Leukocyte esterase [Presence] in Urine by Test strip High Negative [facility] Leukocyte esterase Test strip Ql (U) 2+ High Negative [facility] Comment on above: Order Comment: Name Collection Type:: Clean-Voided Midstream Performed By: #### C BC, [id number], T4F, ETOH, LIPID, CMP, TSH3 wRFLX #### [facility] [address] [place] [address] [place] Leukocytes [#/area] in Urine sediment by Automated countOrdered By: Duane Simons on 11-06-2024 WBC Auto (Urine sed) [#/Area] Leukocytes [#/area] in Urine sediment by Automated count 0-[address] [facility] WBC Auto (Urine sed) [#/Area] 1-2 [HPF] 0-[address] [facility] Leukocytes [#/volume] correc arminda for nucleated erythrocytes in Blood by Automated counOrdered By: Duane Simons on 11-06-2024 WBC corrected for nucl RBC Auto (Bld) [#/Vol] Leukocytes [#/volume] corrected for nucleated erythrocytes in Blood by Automated coun 3.8-11.[address] [facility] WBC corrected for nucl RBC Auto (Bld) [#/Vol] 5.9 10*3/uL 3.8-11.[address] [facility] Leukocytes [#/volume] in Blo od by Automated countOrdered By: Duane Simons on 11-06-2024 WBC (Bld) [#/Vol] 5.9 10*3/uL Normal 3.8-11.6 [facility] Comment on above: Performed By: #### V [id number], TSH3 wRFLX, LIPID #### [facility] [address] Lipid Panelon 11-06-2024 LDL Cholesterol,Calculate d 96 mg/dL Normal 0-100 [facility] Comment on above: Result Comment: LDL ATP III CLASSIFICATION LDL less than 100 mg/dL Optimal LDL 100-129 mg/dL Near or above optimal LDL 130-159 mg/dL Borderline high LDL 160-189 mg/dL High LDL greater than 189 mg/dL Very high Performed By: #### V [id number], TSH3 wRFLX, LIPID #### [facility] [address] Triglyceride w/Reflex 44 mg/dL Normal 0-149 [facility] Comment on above: Result Comment: TRIG ATP III CLASSIFICATION TRIG less than 150 mg/dL Normal TRIG 150-199 mg/dL Borderline high TRIG 200-500 mg/dL High TRIG greater than 500 mg/dL Very high Standard traceable to the Center for Disease Conrtrol and Prevention (CDC) test method. Performed By: #### V [id number], TSH3 wRFLX, LIPID #### [address] VLDL CHOLESTEROL 8 mg/dL Normal [facility] Comment on above: Performed By: #### V [id number], TSH3 wRFLX, LIPID #### [facility] [address] [place] [id number] [place] Lymphocytes Auto (Bld) [#/Vo l]Ordered By: Duane Simons on 11-06-2024 Lymphocytes (Bld) [#/Vol] Lymphocytes [#/volume] in Blood by Automated count 1.00-4.[address] [facility] Lymphocytes [#/volume] in Bl ood by Automated countOrdered By: Duane Simons on 11-06-2024 Lymphocytes (Bld) [#/Vol] 2.1 10*3/uL Normal 1.00-4.[address] [facility] Comment on above: Performed By: #### V [id number], TSH3 wRFLX, LIPID #### [facility] [address] [place] [id number] [place] Lymphocytes/100 WBC Auto (Bl d)Ordered By: Duane Simons on 11-06-2024 Lymphocytes/100 WBC (Bld) Lymphocytes/100 leukocytes in Blood by Automated count . [facility] Lymphocytes/100 leukocytes i n Blood by Automated countOrdered By: Duane Simons on 11-06-2024 Lymphocytes/100 WBC (Bld) 36.1 % Normal . [facility] Comment on above: Performed By: #### V [id number], TSH3 wRFLX, LIPID #### [facility] [address] MCH Auto (RBC) [Entitic mass ]Ordered By: Duane Simons on 11-06-2024 MCH (RBC) [Entitic mass] MCH [Entitic mass] by Automated count 24.7-34.[address] [facility] MCH [Entitic mass] by Automa arminda countOrdered By: Duane Simons on 11-06-2024 MCH (RBC) [Entitic mass] 29.4 pg Normal 24.7-34.[address] [facility] Comment on above: Performed By: #### V [id number], TSH3 wRFLX, LIPID #### [facility] [address] MCHC Auto (RBC) [Mass/Vol]Or dered By: Duane Simons on 11-06-2024 MCHC (RBC) [Mass/Vol] MCHC [Mass/volume] by Automated count 32.0-35.[address] [facility] MCHC (RBC) [Mass/Vol] 34.2 g/dL 32.0-35.0 [facility] MCV Auto (RBC) [Entitic vol] Ordered By: Duane Simons on 11-06-2024 MCV (RBC) [Entitic vol] MCV [Entitic volume] by Automated count 80-[address] [facility] MCV [Entitic volume] by Auto mated countOrdered By: Duane Simons on 11-06-2024 MCV (RBC) [Entitic vol] 86.1 fL Normal 80-[address] [facility] Comment on above: Performed By: #### V [id number], TSH3 wRFLX, LIPID #### [facility] [address] [place] [address] [place] Monocyte distribution width [Entitic volume] in Blood by AutomatedOrdered By: Duane Simons on 11-06-2024 Monocyte distribution width Auto (Bld) [Entitic vol] Monocyte distribution width [Entitic volume] in Blood by Automated 0.00-20.[address] [facility] Monocyte distribution width Auto (Bld) [Entitic vol] 18.05 % 0.00-20.[address] [facility] Monocytes Auto (Bld) [#/Vol] Ordered By: Duaen Simons on 11-06-2024 Monocytes (Bld) [#/Vol] Automated blood monocyte count 0.0-0.[address] [facility] Monocytes [#/volume] in Bloo d by Automated countOrdered By: Duane Simons on 11-06-2024 Monocytes (Bld) [#/Vol] 0.3 10*3/uL Normal 0.0-0.[address] [facility] Comment on above: Performed By: #### V [id number], TSH3 wRFLX, LIPID #### [facility] [address] Monocytes/100 WBC Auto (Bld) Ordered By: Duane Simons on 11-06-2024 Monocytes/100 WBC (Bld) Automated monocyte % . [facility] Monocytes/100 leukocytes in Blood by Automated countOrdered By: Duane Simons on 11-06-2024 Monocytes/100 WBC (Bld) 4.7 % Normal . [facility] Comment on above: Performed By: #### V [id number], TSH3 wRFLX, LIPID #### [facility] [address] [place] [address] [place] Neutrophils Auto (Bld) [#/Vo l]Ordered By: Duane Simons on 11-06-2024 Neutrophils (Bld) [#/Vol] Neutrophils [#/volume] in Blood by Automated count 1.8-7.[address] [facility] Neutrophils [#/volume] in Bl ood by Automated countOrdered By: Duane Simons on 11-06-2024 Neutrophils (Bld) [#/Vol] 3.5 10*3/uL Normal 1.8-7.[address] [facility] Comment on above: Performed By: #### V [id number], TSH3 wRFLX, LIPID #### [facility] [address] [place] [address] [place] Neutrophils/100 WBC Auto (Bl d)Ordered By: Duane Simons on 11-06-2024 Neutrophils/100 WBC (Bld) Automated neutrophil % . [facility] Neutrophils/100 leukocytes i n Blood by Automated countOrdered By: Duaen Simons on 11-06-2024 Neutrophils/100 WBC (Bld) 58.6 % Normal . [facility] Comment on above: Performed By: #### V [id number], TSH3 wRFLX, LIPID #### [facility] [address] Nitrite Test strip Ql (U)Ord ered By: Duane Simons on 11-06-2024 Nitrite Ql (U) Nitrite [Presence] i n Urine by Test strip Negative [facility] Nitrite Ql (U) Negative Negative [facility] No Panel InformationOrdered By: Duane Simons on 11-06-2024 Estimated GFR (CKD-EPI) > 60.0 mL/Min [facility] Creatinine Clearance (Chem 112.[address] [facility] Nucleated erythrocytes [Pres ence] in Blood by Automated countOrdered By: Duane Simons on 11-06-2024 Nucleated RBC Auto Ql (Bld) Nucleated erythrocytes [Presence] in Blood by Automated count 0-0.[address] [facility] Nucleated RBC Auto Ql (Bld) 0.1 /100{WBC} 0-0.[address] [facility] Opiates [Presence] in Urine by Screen methodOrdered By: Duane Simons on 11-06-2024 Opiates Screen Ql (U) Opiates [Presence] in Urine by Screen method Negative [facility] Opiates Screen Ql (U) Negative Negative [facility] Phencyclidine Screen Ql (U)O rdered By: Duane Simons on 11-06-2024 Phencyclidine Ql (U) Phencyclidine [Pres ence] in Urine by Screen method Negative [facility] Phencyclidine Ql (U) Negative Negative [facility] Platelet mean volume Auto (B ld) [Entitic vol]Ordered By: Duane Simons on 11-06-2024 Platelet mean volume (Bld) [Entitic vol] Platelet mean volume [Entitic volume] in Blood by Automated count 6.3-10.[address] [facility] Platelet mean volume [Entiti c volume] in Blood by Automated countOrdered By: Duane Simons on 11-06-2024 Platelet mean volume (Bld) [Entitic vol] 7.8 fL Normal 6.3-10.[address] [facility] Comment on above: Performed By: #### V [id number], TSH3 wRFLX, LIPID #### [facility] [address] Platelets Auto (Bld) [#/Vol] Ordered By: Duane Simons on 11-06-2024 Platelets (Bld) [#/Vol] Platelets [#/volume] in Blood by Automated count 150-[address] [facility] Platelets [#/volume] in Bloo d by Automated countOrdered By: Duane Simons on 11-06-2024 Platelets (Bld) [#/Vol] 264 10*3/uL Normal 150-[address] [facility] Comment on above: Performed By: #### V [id number], TSH3 wRFLX, LIPID #### [facility] [address] [place] [address] Potassium [Moles/volume] in Serum or PlasmaOrdered By: Duane Simons on 11-06-2024 Potassium [Moles/Vol] Potassium [Moles/v olume] in Serum or Plasma 3.5-5.[address] [facility] Potassium [Moles/Vol] 3.7 mmol/L Normal 3.5-5.1 [facility] Comment on above: Performed By: #### V [id number], TSH3 wRFLX, LIPID #### [facility] [address] [place] [address] Protein Test strip (U) [Mass /Vol]Ordered By: Duane Simons on 11-06-2024 Protein (U) [Mass/Vol] Protein [Mass/volume] in Urine by Test strip Negative [facility] Protein (U) [Mass/Vol] Negative Negative [facility] Protein [Mass/volume] in Ser um or PlasmaOrdered By: Duane Simons on 11-06-2024 Protein [Mass/Vol] Protein [Mass/volume ] in Serum or Plasma 6.4-8.[address] [facility] Protein [Mass/Vol] 7.2 g/dL Normal 6.4-8.9 [facility] Comment on above: Performed By: #### V [id number], TSH3 wRFLX, LIPID #### [facility] [address] RBC Auto (Bld) [#/Vol]Ordere d By: Duane Simons on 11-06-2024 RBC (Bld) [#/Vol] Erythrocytes [#/volu me] in Blood by Automated count 3.60-5.[address] [facility] Serum globulin measurement b y calculation (mass/volume)Ordered By: Duane Simons on 11-06-2024 Globulin (S) [Mass/Vol] 2.7 g/dL Normal [facility] Comment on above: Performed By: #### V [id number], TSH3 wRFLX, LIPID #### [facility] [address] [place] [address] Serum or plasma albumin/glob ulin mass ratioOrdered By: Duane Simons on 11-06-2024 Albumin/Globulin [Mass ratio] Serum or plasma albumin/globulin mass ratio [facility] Albumin/Globulin [Mass ratio] 1.7 {ratio} Normal [facility] Comment on above: Performed By: #### V [id number], TSH3 wRFLX, LIPID #### [facility] [address] [place] [address] Serum or plasma anion gap de terminationOrdered By: Duane Simons on 11-06-2024 Anion gap [Moles/Vol] Serum or plasma an ion gap determination 6.0-15.[address] [facility] Anion gap [Moles/Vol] 9.6 mmol/L Normal 6.0-15.0 [facility] Comment on above: Performed By: #### V [id number], TSH3 wRFLX, LIPID #### [facility] [address] [place] [address] Serum or plasma ethanol alayna urement (mass/volume)Ordered By: Duane Simons on 11-06-2024 Ethanol [Mass/Vol] TNP [facility] Comment on above: Test not performed Serum or plasma total choles terol/high density lipoprotein (HDL) cholesterol mass ratOrdered By: Kit Gutierrez on 11-06-2024 Cholesterol.total/Cho lesterol in HDL [Mass ratio] Serum or plasma total cholesterol/high density lipoprotein (HDL) cholesterol mass rat <5.[address] [facility] Cholesterol.total/Cho lesterol in HDL [Mass ratio] 3.4 {ratio} Normal <5.[address] [facility] Comment on above: Performed By: #### V [id number], TSH3 wRFLX, LIPID #### [facility] [address] Sodium [Moles/volume] in Ser um or PlasmaOrdered By: Duane Simons on 11-06-2024 Sodium [Moles/Vol] Sodium [Moles/volume ] in Serum or Plasma 136-[address] [facility] Sodium [Moles/Vol] 139 mmol/L Normal 136-145 [facility] Comment on above: Performed By: #### V [id number], TSH3 wRFLX, LIPID #### [facility] [address] Specific gravity Test strip (U) [Rel density]Ordered By: Duane Simons on 11-06-2024 Specific gravity (U) [Rel density] Specific gravity of Urine by Test strip 1.001-1.[address] [facility] Specific gravity (U) [Rel density] 1.015 1.001-1.[address] [facility] Thyroid Stim Hormone w/Rflxo n 11-06-2024 Thyroid Stim Hormone w/Rflx 0.79 u[iU]/mL Normal 0.45-5.33 [facility] Comment on above: Performed By: #### C BC, [id number], T4F, ETOH, LIPID, CMP, TSH3 wRFLX #### [facility] [address] [place] [id number] [place] Thyrotropin [Units/volume] i n Serum or PlasmaOrdered By: Kit Gutierrez on 11-06-2024 TSH Qn Thyrotropin [Units/volume] in Serum or Plasma 0.45-5.[address] [facility] TSH Qn 0.79 m[IU]/L 0.45-5.[address] [facility] Triglyceride [Mass/volume] i n Serum or PlasmaOrdered By: Kit Gutierrez on 11-06-2024 Triglyceride [Mass/Vol] Triglyceride [Mass/volume] in Serum or Plasma 0-[address] [facility] Comment on above: TRIG ATP III CLASSIF ICATIONTRIG less than 150 mg/dL NormalTRIG 150-199 mg/dL Borderline highTRIG 200-500 mg/dL High TRIG greater than 500 mg/dL Very highStandard traceable to the Center for Disease Conrtrol and Prevention (CDC) test method. Triglyceride [Mass/Vol] 44 mg/dL 0-[address] [facility] Comment on above: TRIG ATP III [...] [Mass/volume] in Serum or Plasma Low 7-[address] [facility] Urea nitrogen [Mass/Vol] 6 mg/dL Low 7-[address] [facility] Comment on above: Performed By: #### V [id number], TSH3 wRFLX, LIPID #### [facility] [address] Urobilinogen Test strip (U) [Mass/Vol]Ordered By: Duane Simons on 11-06-2024 Urobilinogen (U) [Mass/Vol] Urobilinogen [Mass/volume] in Urine by Test strip Normal [facility] Urobilinogen (U) [Mass/Vol] Normal mg/dL Normal [facility] Vitamin D 25 Hydroxy Totalon 11-06-2024 Vitamin D 25 Hydroxy Total 7.8 ng/mL Low 30-100 [facility] Comment on above: Result Comment: CEM MIN D STATUS 25(OH)VITAMIN D RANGE (ng/mL) Deficient <20 Insufficient 20 to <30 Sufficient 30 to 100 Reference: Malou MF,Roly CUEVAS, Kassidy SHAH, et al. Evaluation,treatment, and prevention of vitamin D deficiency; an Endocrine Society clinical practice guideline. JCEM. 2010; 96(7):1911-30. PERFORMED BY: [facility] [address] [id number] PATHOLOGIST TIME STUDY ANALYST ZULEIMA ZHANG M.D. Performed By: #### C BC, [id number], T4F, ETOH, LIPID, CMP, TSH3 wRFLX #### [facility] [address] Vitamin D+Metabolites [Mass/ volume] in Serum or PlasmaOrdered By: Kit Gutierrez on 11-06-2024 Vitamin D+Metabolites [Mass/Vol] Vitamin D+Metabolites [Mass/volume] in Serum or Plasma Low 30-[address] [facility] Comment on above: VITAMIN D STATUS 25( OH)VITAMIN D RANGE (ng/mL) Deficient <20 Insufficient 20 to <30Sufficient 30 to 100Reference: Roly Trevino, Kassidy SHAH, et al. Evaluation,treatment, and prevention of vitamin D deficiency; an Endocrine Society clinical practice guideline. JCEM. 2010; 96(7):191-. Vitamin D+Metabolites [Mass/Vol] 7.8 ng/mL Low 30-[address] [facility] Comment on above: VITAMIN D STATUS [...] ] in Blood by Automated count 3.8-11.[address] [facility] pH Test strip (U)Ordered By: Duane Simons on 11-06-2024 pH (U) pH of Urine by Test strip 5.0-9.[address] [facility] pH of Urine by Test stripOrd ered By: Duane Simons on 11-06-2024 pH (U) 5.5 [pH] Normal 5.0-9.[address] [facility] Comment on above: Order Comment: Name Collection Type:: Clean-Voided Midstream Performed By: #### C BC, [id number], T4F, ETOH, LIPID, CMP, TSH3 wRFLX #### [facility] [address] CBC AND AUTO DIFFon 09-17-19 25 ABSOLUTE BASOPHIL 0.0 X10E9/L Normal 0.0-0.2 [facility] Comment on above: Performed By: #### C BCA, CMP #### [facility] ([id number]) [address] [place] [address] 96038 ABSOLUTE NEUTROPHIL 3.0 X10E9/L Normal 1.5-6.6 [facility] Comment on above: Performed By: #### C BCA, CMP #### [facility] ([id number]) [address] [place] [address] 46235 Basophils/100 WBC (Bld) 0.4 % Normal [facility] Comment on above: Performed By: #### C BCA, CMP #### [facility] ([id number]) [address] [place] [address] 74148 Eosinophils (Bld) [#/Vol] 0.1 10*3/uL Normal 0.0-0.4 [facility] Comment on above: Performed By: #### C BCA, CMP #### [facility] ([id number]) [address] [place] [address] 04474 Eosinophils/100 WBC (Bld) 1.0 % Normal [facility] Comment on above: Performed By: #### C BCA, CMP #### [facility] ([id number]) [address] [place] [address] 48219 Erythrocyte distribution width (RBC) [Ratio] 15.6 % High 11.5-15.0 [facility] Comment on above: Performed By: #### C BCA, CMP #### [facility] ([id number]) [address] [place] [address] 88862 Hematocrit (Bld) [Volume fraction] 35.7 % Normal 35-47 [facility] Comment on above: Performed By: #### C BCA, CMP #### [facility] ([id number]) [address] [place] [address] 13474 Hemoglobin (Bld) [Mass/Vol] 12.4 g/dL Normal 11.7-15.5 [facility] Comment on above: Performed By: #### C DARIO, CMP #### [facility] ([id number]) [address] [place] [address] 68836 Lymphocytes (Bld) [#/Vol] 2.1 10*3/uL Normal 1.0-3.5 [facility] Comment on above: Performed By: #### C DARIO, CMP #### [facility] ([id number]) [address] [place] [address] 71768 Lymphocytes/100 WBC (Bld) 37.9 % Normal [facility] Comment on above: Performed By: #### C DARIO, CMP #### [facility] ([id number]) [address] [place] [address] 82620 MCH (RBC) [Entitic mass] 29.4 pg Normal 27-34 [facility] Comment on above: Performed By: #### C BCA, CMP #### [facility] ([id number]) [address] [place] [address] 65527 MCHC (RBC) [Mass/Vol] 34.6 g/dL Normal 32-[address] [facility] Comment on above: Performed By: #### C BCA, CMP #### [facility] ([id number]) [address] [place] [address] 66905 MCV (RBC) [Entitic vol] 85 fL Normal 80-100 [facility] Comment on above: Performed By: #### C BCA, CMP #### [facility] ([id number]) [address] [place] [address] 49024 Monocytes (Bld) [#/Vol] 0.4 10*3/uL Normal 0-0.9 [facility] Comment on above: Performed By: #### C BCA, CMP #### [facility] ([id number]) [address] [place] [address] 87250 Monocytes/100 WBC (Bld) 7.5 % Normal [facility] Comment on above: Performed By: #### C DARIO, CMP #### [facility] ([id number]) [address] [place] [address] 52425 Neutrophils/100 WBC (Bld) 53.2 % Normal [facility] Comment on above: Performed By: #### C DARIO, CMP #### [facility] ([id number]) [address] [place] [address] 76131 Platelet mean volume (Bld) [Entitic vol] 8.0 fL Normal 7-12 [facility] Comment on above: Performed By: #### C DARIO, CMP #### [facility] ([id number]) [address] [place] [address] 55259 Platelets (Bld) [#/Vol] 217 10*3/uL Normal 150-450 [facility] Comment on above: Performed By: #### C BCA, CMP #### [facility] ([id number]) [address] [place] [address] 92777 RBC COUNT 4.20 X10E12/L Normal 3.80-5.20 [facility] Comment on above: Performed By: #### C BCA, CMP #### [facility] ([id number]) [address] [place] [address] 37592 WBC (Bld) [#/Vol] 5.7 10*3/uL Normal 4.0-11.0 [facility] Comment on above: Performed By: #### C BCA, CMP #### [facility] ([id number]) [address] [place] [address] [place] [address] COMPREHENSIVE METABOLIC PANE [place] 09-16-2024 Albumin [Mass/Vol] 4.6 g/dL Normal 3.2-5.3 [facility] Comment on above: Performed By: #### C BCA, CMP #### [facility] ([id number]) [address] [place] [address] 29098 ALP [Catalytic activity/Vol] 48 U/L Normal 39-130 [facility] Comment on above: Performed By: #### C BCA, CMP #### [facility] ([id number]) [address] [place] [address] 96915 ALT [Catalytic activity/Vol] 12 U/L Normal 0-31 [facility] Comment on above: Performed By: #### C BCA, CMP #### [facility] ([id number]) [address] [place] [address] 28099 Anion gap [Moles/Vol] 8 mmol/L Normal 5-[address] [facility] Comment on above: Performed By: #### C BCA, CMP #### [facility] ([id number]) [address] [place] [address] 82832 AST [Catalytic activity/Vol] 17 U/L Normal 0-41 [facility] Comment on above: Performed By: #### C BCA, CMP #### [facility] ([id number]) [address] [place] [address] 77279 Bilirubin [Mass/Vol] 0.3 mg/dL Normal 0.3-1.2 [facility] Comment on above: Performed By: #### C BCA, CMP #### [facility] ([id number]) [address] [place] [address] 68064 Calcium [Mass/Vol] 9.5 mg/dL Normal 8.5-10.5 [facility] Comment on above: Performed By: #### C BCA, CMP #### [facility] ([id number]) [address] [place] [address] 90276 Chloride [Moles/Vol] 102 mmol/L Normal 98-109 [facility] Comment on above: Performed By: #### C BCA, CMP #### [facility] ([id number]) [address] [place] [address] 23064 CO2 [Moles/Vol] 26 mmol/L Normal 22-32 [facility] Comment on above: Performed By: #### C BCA, CMP #### [facility] ([id number]) [address] [place] [address] 09123 Creatinine [Mass/Vol] 0.71 mg/dL Normal 0.40-1.[address] [facility] Comment on above: Result Comment: METH OD TRACEABLE TO IDMS STANDARD Performed By: #### C DARIO, CMP #### [facility] ([id number]) [address] [place] [address] 17457 eGFR (CKD-EPI) NON-RACE DEPENDENT >90 Normal >59 [facility] Comment on above: Result Comment: Reported eGFR is based on the CKD-EPI 2020 equation that does not use a race coefficient. Performed By: #### C BCA, CMP #### [facility] ([id number]) [address] [place] [address] 06395 Glucose [Mass/Vol] 89 mg/dL Normal 65-99 [facility] Comment on above: Performed By: #### C BCA, CMP #### [facility] ([id number]) [address] [place] [address] 37071 Potassium [Moles/Vol] 3.5 mmol/L Normal 3.5-5.[address] [facility] Comment on above: Performed By: #### C BCA, CMP #### [facility] ([id number]) [address] [place] [address] 04041 Protein [Mass/Vol] 7.8 g/dL Normal 6.0-8.0 [facility] Comment on above: Performed By: #### C BCA, CMP #### [facility] ([id number]) [address] [place] [address] 33261 Sodium [Moles/Vol] 136 mmol/L Normal 134-146 [facility] Comment on above: Performed By: #### C BCA, CMP #### [facility] ([id number]) [address] [place] [address] 21057 Urea nitrogen [Mass/Vol] 8 mg/dL Normal 5-23 [facility] Comment on above: Performed By: #### C BCA, CMP #### [facility] ([id number]) [address] [place] [address] ABDOMEN AND PELVIS W CONT on [...] Blandon MD on 09/16/2024 9:31 PM Normal [facility] URN MACROSCOPIC NURon 2024 BILIRUBIN LYNSEY Negative Normal NEG [facility] Comment on above: Performed By: #### N UM #### [facility] ([id number]) [address] [place] [address] 28293 BLOOD/HGB LYNSEY Trace Abnormal NEG [facility] Comment on above: Performed By: #### N UM #### [facility] ([id number]) [address] [place] [address] 14854 GLUCOSE LYNSEY Negative Normal NEG [facility] Comment on above: Performed By: #### N UM #### [facility] ([id number]) [address] [place] [address] 63983 KETONES LYNSEY Negative Normal NEG [facility] Comment on above: Performed By: #### N UM #### [facility] ([id number]) [address] [place] [address] 55307 LEUKOCYTE ESTERASE LYNSEY Negative Normal NEG [facility] Comment on above: Performed By: #### N UM #### [facility] ([id number]) [address] [place] [address] 99994 NITRITE LYNSEY Negative Normal NEG [facility] Comment on above: Performed By: #### N UM #### [facility] ([id number]) [address] [place] [address] 22351 PH LYNSEY 5.5 Normal 5.0-8.5 [facility] Comment on above: Performed By: #### N UM #### [facility] ([id number]) [address] [place] [address], [place] [address] PROTEIN LYNSEY Negative Normal NEG [facility] Comment on above: Performed By: #### N UM #### [facility] ([id number]) [address] [place] [address], [place] [address] SPECIFIC GRAVITY LYNSEY 1.020 Normal 1.003-1.035 [facility] Comment on above: Performed By: #### N UM #### [facility] ([id number]) [address] [place] [address], [place] [address] UROBILINOGEN LYNSEY 0.2 eu/dL Normal <1.1 [facility] Comment on above: Performed By: #### N UM #### [facility] ([id number]) [address] [place] [address] 73267 Cult,Aerobe/Anaerobeon 04-16 Cult,Aerobe/Anaerobe Specimen Descriptio n .ABDOMEN SWAB Special Requests Site: Swab Direct Exam NO NEUTROPHILS SEEN NO BACTERIA SEEN Culture NORMAL SKIN EMILIA VEILLONELLA SPECIES RARE GROWTH Identification by MALDI-TOF Report Status FINAL 04/16/2024 Normal [facility] Comment on above: Performed By: #### C P, LIP, CDP #### Lab [address] [place], [place] [id number] Concrete Layer: Lakhwinder Tim MD Culture, Anaerobic and Aerob icon 04-16-2024 Interpretation and review of laboratory results Abnormal [facility] Microorganism identified Cx Nom (Unsp spec) NORMAL SKIN EMILIA [facility] Microorganism identified Cx Nom (Unsp spec) VEILLONELLA SPECIES RARE GROWTH Identification by MALDI-TOF Abnormal [facility] Microorganism or agent identified Nom (Unsp spec) NO NEUTROPHILS SEEN [facility] Microorganism or agent identified Nom (Unsp spec) NO BACTERIA SEEN [facility] Service comment (Unsp spec) [Interp] Site: Swab [facility] Specimen Description .ABDOMEN SWAB B on [facility] XR ABDOMEN (KUB) (SINGLE AP [...] Christian Ni MD 04/16/24 Final result Normal [facility] XR Abdomen Single viewon Postoperative ileus. MHPN [...] for age Other: None IMPRESSION: Postoperative ileus. [facility] Radiology Study observation (narrative) [facility] XR Abdomen Single viewOrdere d By: Christian Ni on 04-16-2024 [facility] Work Phone: CBC auto differentialon 03-20 Basophils (Bld) [#/Vol] [facility] Basophils/100 WBC (Bld) 0 % 0 - 2 % [facility] Eosinophils (Bld) [#/Vol] 0.33 10*3/uL [facility] Eosinophils/100 WBC (Bld) 8 % High 1 - 4 % [facility] Erythrocyte distribution width (RBC) [Ratio] 13.0 % 11.8 - 14.4 % [facility] Hematocrit (Bld) [Volume fraction] 28.5 % Low 36.3 - 47.1 % [facility] Hemoglobin (Bld) [Mass/Vol] 9.3 g/dL Low 11.9 - 15.1 g/dL [facility] Immature granulocytes (Bld) [#/Vol] [facility] Immature granulocytes/100 WBC (Bld) 0 % 0 [facility] Interpretation and review of laboratory results Abnormal [facility] Lymphocytes/100 WBC (Bld) 45 % High 24 - 43 % [facility] Lymphocytes/100 WBC (Bld) 1.87 % [facility] MCH (RBC) [Entitic mass] 28.6 pg 25.2 - 33.5 pg [facility] MCHC (RBC) [Mass/Vol] 32.6 g/dL 28.4 - 34.8 g/dL [facility] MCV (RBC) [Entitic vol] 87.7 fL 82.6 - 102.9 fL [facility] Monocytes/100 WBC (Bld) 9 % 3 - 12 % [facility] Monocytes/100 WBC (Bld) 0.39 % [facility] Neutrophils/100 WBC (Bld) 38 % 36 - 65 % [facility] Nucleated RBC/100 WBC (Bld) [Ratio] 0.0 % 0.0 per 100 WBC [facility] Platelet mean volume (Bld) [Entitic vol] 9.7 fL 8.1 - 13.5 fL [facility] Platelets (Bld) [#/Vol] 204 10*3/uL [facility] RBC (Bld) [#/Vol] 3.25 10*6/uL Low 3.95 - 5.1 1 m/uL [facility] Segmented neutrophils/100 WBC (Bld) 1.62 % [facility] WBC other (Bld) [#/Vol] 4.2 [facility] CBC with Diffon 04-15-2024 Abs. Basophil <0.03 Normal 0.00-0.20 [facility] Comment on above: Performed By: #### C DP #### Lab [address] [place] [address] [address] [place] [id number] Concrete Layer: Lakhwinder Tim MD Abs.Imm.Granulocyte <0.03 Normal 0.00-0.30 [facility] Comment on above: Performed By: #### C DP #### [address] [place] [address] Concrete Layer: Lakhwinder Tim MD Abs.Neutrophil (Seg) 1.62 k/uL Normal 1.50-8.10 [facility] Comment on above: Performed By: #### C DP #### Lab [address] [place] [address] Dr. [place], [place] [address] Concrete Layer: Lakhwinder Tim MD Basophils/100 WBC (Bld) 0 % Normal 0-2 [facility] Comment on above: Performed By: #### C DP #### [address] [place] [id number] Concrete Layer: Lakhwinder Tim MD Eosinophils (Bld) [#/Vol] 0.33 10*3/uL Normal 0.00-0.44 [facility] Comment on above: Performed By: #### C DP #### Lab [address] [place], [place] [id number] Concrete Layer: Lakhwinder Tim MD Eosinophils/100 WBC (Bld) 8 % High 1-4 [facility] Comment on above: Performed By: #### C DP #### Lab [address] [place] [address] Dr. [place], [place] [id number] Concrete Layer: Lakhwinder Tim MD Erythrocyte distribution width (RBC) [Ratio] 13.0 % Normal 11.8-14.4 [facility] Comment on above: Performed By: #### C DP #### [address] [place] [id number] Concrete Layer: Lakhwinder Tim MD Hematocrit (Bld) [Volume fraction] 28.5 % Low 36.3-47.1 [facility] Comment on above: Performed By: #### C DP #### Lab [address] [place] [address] Dr. [place], [facility] Concrete Layer: Lakhwinder Tim MD Hemoglobin (Bld) [Mass/Vol] 9.3 g/dL Low 11.9-15.1 [facility] Comment on above: Performed By: #### C DP #### [address] [place], [facility] Concrete Layer: Lakhwinder Tim MD Immature granulocytes/100 WBC (Bld) 0 % Normal 0 [facility] Comment on above: Performed By: #### C DP #### Lab [address] [place], [facility] Concrete Layer: Lakhwinder Tim MD Lymphocytes (Bld) [#/Vol] 1.87 10*3/uL Normal 1.10-3.70 [facility] Comment on above: Performed By: #### C DP #### Lab [address] [place] [address] Dr. [place], [place] [id number] Concrete Layer: Lakhwinder Tim MD Lymphocytes/100 WBC (Bld) 45 % High 24-43 [facility] Comment on above: Performed By: #### C DP #### Lab [address] [place], [place] [id number] Concrete Layer: Lakhwinder Tim MD MCH (RBC) [Entitic mass] 28.6 pg Normal 25.2-33.5 [facility] Comment on above: Performed By: #### C DP #### Lab [address] [place], [place] [id number] Concrete Layer: Lakhwinder Tim MD MCHC (RBC) [Mass/Vol] 32.6 g/dL Normal 28.4-34.8 [facility] Comment on above: Performed By: #### C DP #### [address] [place], [place] [id number] Concrete Layer: Lakhwinder Tim MD MCV (RBC) [Entitic vol] 87.7 fL Normal 82.6-102.9 [facility] Comment on above: Performed By: #### C DP #### Lab [address] [place], [place] [id number] Concrete Layer: Lakhwinder Tim MD Monocytes (Bld) [#/Vol] 0.39 10*3/uL Normal 0.10-1.20 [facility] Comment on above: Performed By: #### C DP #### Lab [address] [place] [id number] Concrete Layer: Lakhwinder Tim MD Monocytes/100 WBC (Bld) 9 % Normal 3-12 [facility] Comment on above: Performed By: #### C DP #### Lab [address] [place], [place] [id number] Concrete Layer: Lakhwinder Tim MD Neutrophil (Seg) 38 % Normal 36-65 [facility] Comment on above: Performed By: #### C DP #### Lab [address] [place], [place] [id number] Concrete Layer: Lakhwinder Tim MD NRBC Automated 0.0 per 100 WBC Normal 0.0 [facility] Comment on above: Performed By: #### C DP #### Lab [address] [place], [place] [id number] Concrete Layer: Lakhwinder Tim MD Platelet mean volume (Bld) [Entitic vol] 9.7 fL Normal 8.1-13.5 [facility] Comment on above: Performed By: #### C DP #### [facility] [address] [place] [address] Concrete Layer: Lakhwinder Tim MD Platelets (Bld) [#/Vol] 204 10*3/uL Normal 138-453 [facility] Comment on above: Performed By: #### C DP #### [address] [place], [facility]83 Concrete Layer: Lakhwinder Tim MD RBC (Bld) [#/Vol] 3.25 10*6/uL Low 3.95-5.11 [facility] Comment on above: Performed By: #### C DP #### [address] [place], [place] [id number] Concrete Layer: Lakhwinder Tim MD WBC (Bld) [#/Vol] 4.2 10*3/uL Normal 3.5-11.3 [facility] Comment on above: Performed By: #### C DP #### [facility] [address] [place], [place] [id number] Concrete Layer: Lakhwinder Tim MD Comp Metabolic Pr/rfx MGon 1 Albumin [Mass/Vol] 3.2 g/dL Low 3.5-5.2 [facility] Comment on above: Performed By: #### C DP #### [facility] [address] [place], [place] [id number] Concrete Layer: Lakhwinder Tim MD Albumin/Glob Ratio 1.1 Normal 1.0-2.5 [facility] Comment on above: Performed By: #### C DP #### Lab [address] [place], [place] [id number] Concrete Layer: Lakhwinder Tim MD Alkaline Phos 75 U/L Normal 35-104 [facility] Comment on above: Performed By: #### C DP #### Lab [address] [place] [id number] Concrete Layer: Lakhwinder Tim MD ALT [Catalytic activity/Vol] 10 U/L Normal 10-35 [facility] Comment on above: Performed By: #### C DP #### Lab [address] [place], [place] [id number] Concrete Layer: Lakhwinder Tim MD Anion gap [Moles/Vol] 6 mmol/L Low 9-16 [facility] Comment on above: Performed By: #### C DP #### Lab [address] [place], [place] [id number] Concrete Layer: Lakhwinder Tim MD AST [Catalytic activity/Vol] 10 U/L Normal 10-35 [facility] Comment on above: Performed By: #### C DP #### Lab [address] [place], [place] [id number] Concrete Layer: Lakhwinder Tim MD Bilirubin [Mass/Vol] mg/dL Normal 0.00-1.20 [facility] Comment on above: Performed By: #### C DP #### Lab [address] [place], [place] [id number] Concrete Layer: Lakhwinder Tim MD BUN/CRE Ratio 10 Normal 9-20 [facility] Comment on above: Performed By: #### C DP #### Lab [address] [place] [id number] Concrete Layer: Lakhwinder Tim MD Calcium [Mass/Vol] 8.6 mg/dL Normal 8.6-10.4 [facility] Comment on above: Performed By: #### C DP #### Lab [address] [place] [id number] Concrete Layer: Lakhwinder Tim MD Chloride [Moles/Vol] 104 mmol/L Normal 98-107 [facility] Comment on above: Performed By: #### C DP #### Lab [address] [place] [id number] Concrete Layer: Lakhwinder Tim MD CO2 [Moles/Vol] 28 mmol/L Normal 20-31 [facility] Comment on above: Performed By: #### C DP #### [facility] [address] [place] [address] Concrete Layer: Lakhwinder Tim MD Creatinine [Mass/Vol] 0.5 mg/dL Normal 0.50-0.90 [facility] Comment on above: Performed By: #### C DP #### Lab [address] [place] [address] Concrete Layer: Lakhwinder Tim MD GFR/1.73 sq M.predicted among non-blacks MDRD (S/P/Bld) [Vol rate/Area] mL/min/{1.73_m2} Normal >60 [facility] Comment on above: Result Comment: These results [...] secretion. Performed By: #### C DP #### Lab [address] [place] [address] Concrete Layer: Lakhwinder Tim MD Glucose [Mass/Vol] 89 mg/dL Normal 74-99 [facility] Comment on above: Performed By: #### C DP #### Lab [address] [place] [address] Concrete Layer: Lakhwinder Tim MD Potassium [Moles/Vol] 3.8 mmol/L Normal 3.7-5.3 [facility] Comment on above: Performed By: #### C DP #### Lab [address] [place], [place] [id number] Concrete Layer: Lakhwinder Tim MD Protein [Mass/Vol] 6.2 g/dL Low 6.6-8.7 [facility] Comment on above: Performed By: #### C DP #### Lab [address] [place], [place] [id number] Concrete Layer: Lakhwinder Tim MD Sodium [Moles/Vol] 138 mmol/L Normal 136-145 [facility] Comment on above: Performed By: #### C DP #### Lab [address] [place], [place] [id number] Concrete Layer: Lakhwinder Tim MD Urea nitrogen [Mass/Vol] 5 mg/dL Low 6-20 [facility] Comment on above: Performed By: #### C DP #### Lab [address] [place], [place] [id number] Concrete Layer: Lakhwinder Tim MD Comprehensive Metabolic Pane l w/ Reflex to MGon 04-15-2024 Albumin [Mass/Vol] 3.2 g/dL Low 3.5 - 5.2 g/dL [facility] Albumin/Globulin [Mass ratio] 1.1 {ratio} 1.0 - 2.5 [facility] ALP [Catalytic activity/Vol] 75 U/L 35 - 104 U/L [facility] ALT [Catalytic activity/Vol] 10 U/L 10 - 35 U/L [facility] Anion gap [Moles/Vol] 6 mmol/L Low 9 - 16 mmol/L [facility] AST [Catalytic activity/Vol] 10 U/L 10 - 35 U/L [facility] Bilirubin [Mass/Vol] mg/dL 0.00 - 1.20 mg/dL [facility] Calcium [Mass/Vol] 8.6 mg/dL 8.6 - 10. 4 mg/dL [facility] Chloride [Moles/Vol] 104 mmol/L 98 - 10 7 mmol/L [facility] CO2 [Moles/Vol] 28 mmol/L 20 - 31 mmol/L [facility] Creatinine [Mass/Vol] 0.5 mg/dL 0.50 - 0.90 mg/dL [facility] [employer] Rate - PINF [facility] [...] [Mass/Vol] 89 mg/dL 74 - 99 mg/dL [facility] Interpretation and review of laboratory results Abnormal [facility] Potassium [Moles/Vol] 3.8 mmol/L 3.7 - 5.3 mmol/L [facility] Protein [Mass/Vol] 6.2 g/dL Low 6.6 - 8.7 g/dL [facility] Sodium [Moles/Vol] 138 mmol/L 136 - 145 mmol/L [facility] Urea nitrogen [Mass/Vol] 5 mg/dL Low 6 - 20 mg/dL [facility] Urea nitrogen/Creatinine [Mass ratio] 10 mg/mg 9 - 20 [facility] CBC auto differentialon 03-20 Basophils (Bld) [#/Vol] [facility] Basophils/100 WBC (Bld) 0 % 0 - 2 % [facility] Eosinophils (Bld) [#/Vol] 0.28 10*3/uL [facility] Eosinophils/100 WBC (Bld) 6 % High 1 - 4 % [facility] Erythrocyte distribution width (RBC) [Ratio] 13.2 % 11.8 - 14.4 % [facility] Hematocrit (Bld) [Volume fraction] 27.5 % Low 36.3 - 47.1 % [facility] Hemoglobin (Bld) [Mass/Vol] 8.8 g/dL Low 11.9 - 15.1 g/dL [facility] Immature granulocytes (Bld) [#/Vol] [facility] Immature granulocytes/100 WBC (Bld) 0 % 0 [facility] Interpretation and review of laboratory results Abnormal [facility] Lymphocytes/100 WBC (Bld) 35 % 24 - 43 % [facility] Lymphocytes/100 WBC (Bld) 1.62 % [facility] MCH (RBC) [Entitic mass] 28.2 pg 25.2 - 33.5 pg [facility] MCHC (RBC) [Mass/Vol] 32.0 g/dL 28.4 - 34.8 g/dL [facility] MCV (RBC) [Entitic vol] 88.1 fL 82.6 - 102.9 fL [facility] Monocytes/100 WBC (Bld) 10 % 3 - 12 % [facility] Monocytes/100 WBC (Bld) 0.47 % [facility] Neutrophils/100 WBC (Bld) 49 % 36 - 65 % [facility] Nucleated RBC/100 WBC (Bld) [Ratio] 0.0 % 0.0 per 100 WBC [facility] Platelet mean volume (Bld) [Entitic vol] 10.3 fL 8.1 - 13.5 fL [facility] Platelets (Bld) [#/Vol] 183 10*3/uL [facility] RBC (Bld) [#/Vol] 3.12 10*6/uL Low 3.95 - 5.1 1 m/uL [facility] Segmented neutrophils/100 WBC (Bld) 2.22 % [facility] WBC other (Bld) [#/Vol] 4.6 [facility] Bon [facility] CBC with Diffon 04-14-2024 Abs. Basophil <0.03 Normal 0.00-0.20 [facility] Comment on above: Performed By: #### C P, LIP, CDP #### Lab [address] [place] [id number] Concrete Layer: Lakhwinder Tim MD Abs.Imm.Granulocyte <0.03 Normal 0.00-0.30 [facility] Comment on above: Performed By: #### C P, LIP, CDP #### Lab [address] [place], [place] [id number] Concrete Layer: Lakhwinder Tim MD Abs.Neutrophil (Seg) 2.22 k/uL Normal 1.50-8.10 [facility] Comment on above: Performed By: #### C P, LIP, CDP #### [facility] [address] [place], [facility] Concrete Layer: Lakhwinder Tim MD Basophils/100 WBC (Bld) 0 % Normal 0-2 [facility] Comment on above: Performed By: #### C P, LIP, CDP #### [address] [place], [place] [id number] Concrete Layer: Lakhwinder Tim MD Eosinophils (Bld) [#/Vol] 0.28 10*3/uL Normal 0.00-0.44 [facility] Comment on above: Performed By: #### C P, LIP, CDP #### Lab [address] [place] [id number] Concrete Layer: Lakhwinder Tim MD Eosinophils/100 WBC (Bld) 6 % High 1-4 [facility] Comment on above: Performed By: #### C P, LIP, CDP #### [facility] [address] [place], [place] [id number] Concrete Layer: Lakhwinder Tim MD Erythrocyte distribution width (RBC) [Ratio] 13.2 % Normal 11.8-14.4 [facility] Comment on above: Performed By: #### C P, LIP, CDP #### [facility] [address] [place], [place] [id number] Concrete Layer: Lakhwinder Tim MD Hematocrit (Bld) [Volume fraction] 27.5 % Low 36.3-47.1 [facility] Comment on above: Performed By: #### C P, LIP, CDP #### [facility] [address] [place], [place] [id number] Concrete Layer: Lakhwinder Tim MD Hemoglobin (Bld) [Mass/Vol] 8.8 g/dL Low 11.9-15.1 [facility] Comment on above: Performed By: #### C P, LIP, CDP #### [facility] [address] [place], [facility] Concrete Layer: Lakhwinder Tim MD Immature granulocytes/100 WBC (Bld) 0 % Normal 0 [facility] Comment on above: Performed By: #### C P, LIP, CDP #### [facility] [address] [place], [facility] Concrete Layer: Lakhwinder Tim MD Lymphocytes (Bld) [#/Vol] 1.62 10*3/uL Normal 1.10-3.70 [facility] Comment on above: Performed By: #### C P, LIP, CDP #### [facility] [address] [place], [facility] Concrete Layer: Lakhwinder Tim MD Lymphocytes/100 WBC (Bld) 35 % Normal 24-43 [facility] Comment on above: Performed By: #### C P, LIP, CDP #### [facility] [address] [place] [id number] Concrete Layer: Lakhwinder Tim MD MCH (RBC) [Entitic mass] 28.2 pg Normal 25.2-33.5 [facility] Comment on above: Performed By: #### C P, LIP, CDP #### [address] [place], [place] [address] Concrete Layer: Lakhwinder Tim MD MCHC (RBC) [Mass/Vol] 32.0 g/dL Normal 28.4-34.8 [facility] Comment on above: Performed By: #### C P, LIP, CDP #### [address] [place], [place] [address] Concrete Layer: Lakhwinder Tim MD MCV (RBC) [Entitic vol] 88.1 fL Normal 82.6-102.9 [facility] Comment on above: Performed By: #### C P, LIP, CDP #### [address] [place] [id number] Concrete Layer: Lakhwinder Tim MD Monocytes (Bld) [#/Vol] 0.47 10*3/uL Normal 0.10-1.20 [facility] Comment on above: Performed By: #### C P, LIP, CDP #### [address] [place], [place] [id number] Concrete Layer: Lakhwinder Tim MD Monocytes/100 WBC (Bld) 10 % Normal 3-12 [facility] Comment on above: Performed By: #### C P, LIP, CDP #### [address] [place], [place] [id number] Concrete Layer: Lakhwinder Tim MD Neutrophil (Seg) 49 % Normal 36-65 [facility] Comment on above: Performed By: #### C P, LIP, CDP #### [address] [place], [place] [id number] Concrete Layer: Lakhwinder Tim MD NRBC Automated 0.0 per 100 WBC Normal 0.0 [facility] Comment on above: Performed By: #### C P, LIP, CDP #### Lab [address] [place], [place] [id number] Concrete Layer: Lakhwinder Tim MD Platelet mean volume (Bld) [Entitic vol] 10.3 fL Normal 8.1-13.5 [facility] Comment on above: Performed By: #### C P, LIP, CDP #### [facility] [address] [place] [id number] Concrete Layer: Lakhwinder Tim MD Platelets (Bld) [#/Vol] 183 10*3/uL Normal 138-453 [facility] Comment on above: Performed By: #### C P, LIP, CDP #### [address] [place], [place] [id number] Concrete Layer: Lakhwinder Tim MD RBC (Bld) [#/Vol] 3.12 10*6/uL Low 3.95-5.11 [facility] Comment on above: Performed By: #### C P, LIP, CDP #### [address] [place] [address] Concrete Layer: Lakhwinder Tim MD WBC (Bld) [#/Vol] 4.6 10*3/uL Normal 3.5-11.3 [facility] Comment on above: Performed By: #### C P, LIP, CDP #### [address] [place], [place] [address] Concrete Layer: Lakhwinder Tim MD Comp Metabolic Pr/rfx MGon 1 0- Albumin [Mass/Vol] 3.1 g/dL Low 3.5-5.2 [facility] Comment on above: Performed By: #### C P, LIP, CDP #### [facility] [address] [place], [place] [id number] Concrete Layer: Lakhwinder Tim MD Albumin/Glob Ratio 1.1 Normal 1.0-2.5 [facility] Comment on above: Performed By: #### C P, LIP, CDP #### [facility] [address] [place], [place] [id number] Concrete Layer: Lakhwinder Tim MD Alkaline Phos 62 U/L Normal 35-104 [facility] Comment on above: Performed By: #### C P, LIP, CDP #### [facility] [address] [place], [place] [id number] Concrete Layer: Lakhwinder Tim MD ALT [Catalytic activity/Vol] 11 U/L Normal 10-35 [facility] Comment on above: Performed By: #### C P, LIP, CDP #### [facility] [address] [place], [place] [id number] Concrete Layer: Lakhwinder Tim MD Anion gap [Moles/Vol] 8 mmol/L Low 9-16 [facility] Comment on above: Performed By: #### C P, LIP, CDP #### [facility] [address] [place], [place] [id number] Concrete Layer: Lakhwinder Tim MD AST [Catalytic activity/Vol] 12 U/L Normal 10-35 [facility] Comment on above: Performed By: #### C P, LIP, CDP #### [facility] [address] [place], [place] [id number] Concrete Layer: Lakhwinder Tim MD Bilirubin [Mass/Vol] 0.3 mg/dL Normal 0.00-1.20 [facility] Comment on above: Performed By: #### C P, LIP, CDP #### [facility] [address] [place], [place] [id number] Concrete Layer: Lakhwinder Tim MD BUN/CRE Ratio 10 Normal 9-20 [facility] Comment on above: Performed By: #### C P, LIP, CDP #### [facility] [address] [place], [place] [id number] Concrete Layer: Lakhwinder Tim MD Calcium [Mass/Vol] 8.4 mg/dL Low 8.6-10.4 [facility] Comment on above: Performed By: #### C P, LIP, CDP #### [facility] [address] [place], [place] [id number] Concrete Layer: Lakhwinder Tim MD Chloride [Moles/Vol] 104 mmol/L Normal 98-107 [facility] Comment on above: Performed By: #### C P, LIP, CDP #### Lab [address] [place] [address] Concrete Layer: Lakhwinder Tim MD CO2 [Moles/Vol] 27 mmol/L Normal 20-31 [facility] Comment on above: Performed By: #### C P, LIP, CDP #### Lab [address] [place] [address] Concrete Layer: Lakhwinder Tim MD Creatinine [Mass/Vol] 0.4 mg/dL Low 0.50-0.90 [facility] Comment on above: Performed By: #### C P, LIP, CDP #### [facility] [address] [place] [address] Concrete Layer: Lakhwinder Tim MD GFR/1.73 sq M.predicted among non-blacks MDRD (S/P/Bld) [Vol rate/Area] mL/min/{1.73_m2} Normal >60 [facility] Comment on above: Result Comment: These results [...] By: #### C P, LIP, CDP #### Lab [address] [place] [id number] Concrete Layer: Lakhwinder Tim MD Glucose [Mass/Vol] 93 mg/dL Normal 74-99 [facility] Comment on above: Performed By: #### C P, LIP, CDP #### [facility] [address] [place], [place] [id number] Concrete Layer: Lakhwinder Tim MD Potassium [Moles/Vol] 3.4 mmol/L Low 3.7-5.3 [facility] Comment on above: Performed By: #### C P, LIP, CDP #### [facility] [address] [place], [place] [id number] Concrete Layer: Lakhwinder Tim MD Protein [Mass/Vol] 5.9 g/dL Low 6.6-8.7 [facility] Comment on above: Performed By: #### C P, LIP, CDP #### [facility] [address] [place], [place] [id number] Concrete Layer: Lakhwinder Tim MD Sodium [Moles/Vol] 139 mmol/L Normal 136-145 [facility] Comment on above: Performed By: #### C P, LIP, CDP #### [facility] [address] [place], [place] [id number] Concrete Layer: Lakhwinder Tim MD Urea nitrogen [Mass/Vol] 4 mg/dL Low 6-20 [facility] Comment on above: Performed By: #### C P, LIP, CDP #### [facility] [address] [place], [place] [id number] Concrete Layer: Lakhwinder Tim MD Comprehensive Metabolic Pane l w/ Reflex to MGon 04-14-2024 Albumin [Mass/Vol] 3.1 g/dL Low 3.5 - 5.2 g/dL [facility] Albumin/Globulin [Mass ratio] 1.1 {ratio} 1.0 - 2.5 [facility] ALP [Catalytic activity/Vol] 62 U/L 35 - 104 U/L [facility] ALT [Catalytic activity/Vol] 11 U/L 10 - 35 U/L [facility] Anion gap [Moles/Vol] 8 mmol/L Low 9 - 16 mmol/L [facility] AST [Catalytic activity/Vol] 12 U/L 10 - 35 U/L [facility] Bilirubin [Mass/Vol] 0.3 mg/dL 0.00 - 1.20 mg/dL [facility] Calcium [Mass/Vol] 8.4 mg/dL Low 8.6 - 10. 4 mg/dL [facility] Chloride [Moles/Vol] 104 mmol/L 98 - 10 7 mmol/L [facility] CO2 [Moles/Vol] 27 mmol/L 20 - 31 mmol/L [facility] Creatinine [Mass/Vol] 0.4 mg/dL Low 0.50 - 0.90 mg/dL [facility] [employer] Rate - PINF [facility] [...] [Mass/Vol] 93 mg/dL 74 - 99 mg/dL [facility] Interpretation and review of laboratory results Abnormal [facility] Potassium [Moles/Vol] 3.4 mmol/L Low 3.7 - 5.3 mmol/L [facility] Protein [Mass/Vol] 5.9 g/dL Low 6.6 - 8.7 g/dL [facility] Sodium [Moles/Vol] 139 mmol/L 136 - 145 mmol/L [facility] Urea nitrogen [Mass/Vol] 4 mg/dL Low 6 - 20 mg/dL [facility] Urea nitrogen/Creatinine [Mass ratio] 10 mg/mg 9 - 20 [facility] Magnesiumon 04-14-2024 Magnesium [Mass/Vol] 1.7 mg/dL 1.6 - 2 .6 mg/dL [facility] Magnesium [Mass/Vol] 1.7 mg/dL Normal 1.6-2.6 [facility] Comment on above: Performed By: #### C TOM Mckeon CDP #### Lab [address] [place] [id number] Concrete Layer: Lakhwinder Tim MD XR ABDOMEN (KUB) (SINGLE [...] Olsen IV, MD 04/14/24 Final result Normal [facility] XR Abdomen Single viewon Nonspecific, nonobstructed bowel gas pattern. [facility] RIS CONSOLIDATED EXAMINATION: ONE SUPINE XRAY VIEW(S) OF THE ABDOMEN 04/14/2024 5:23 pm COMPARISON: 04/13/2024 radiograph HISTORY: ORDERING SYSTEM PROVIDED HISTORY: Abd pain TECHNOLOGIST PROVIDED HISTORY: Abd pain FINDINGS: Limited visualization of the abdomen in field of view of this portable study. Nonspecific, nonobstructed bowel gas pattern. No abnormal soft tissue mass or calcification. No significant skeletal finding. [facility] RIS CONSOLIDATED Asim Olsen IV, MD - [...] finding. IMPRESSION: Nonspecific, nonobstructed bowel gas pattern. [facility] Radiology Study observation (narrative) [facility] XR Abdomen Single viewOrdere d By: Asim Olsen on 04-14-2024 [facility] Work Phone: CBC auto differentialon 03-20 Basophils (Bld) [#/Vol] [facility] Basophils/100 WBC (Bld) 0 % 0 - 2 % [facility] Eosinophils (Bld) [#/Vol] 0.10 10*3/uL [facility] Eosinophils/100 WBC (Bld) 2 % 1 - 4 % [facility] Erythrocyte distribution width (RBC) [Ratio] 13.4 % 11.8 - 14.4 % [facility] Hematocrit (Bld) [Volume fraction] 29.0 % Low 36.3 - 47.1 % [facility] Hemoglobin (Bld) [Mass/Vol] 9.3 g/dL Low 11.9 - 15.1 g/dL [facility] Immature granulocytes (Bld) [#/Vol] [facility] Immature granulocytes/100 WBC (Bld) 0 % 0 [facility] Interpretation and review of laboratory results Abnormal [facility] Lymphocytes/100 WBC (Bld) 25 % 24 - 43 % [facility] Lymphocytes/100 WBC (Bld) 1.44 % [facility] MCH (RBC) [Entitic mass] 28.2 pg 25.2 - 33.5 pg [facility] MCHC (RBC) [Mass/Vol] 32.1 g/dL 28.4 - 34.8 g/dL [facility] MCV (RBC) [Entitic vol] 87.9 fL 82.6 - 102.9 fL [facility] Monocytes/100 WBC (Bld) 11 % 3 - 12 % [facility] Monocytes/100 WBC (Bld) 0.64 % [facility] Neutrophils/100 WBC (Bld) 62 % 36 - 65 % [facility] Nucleated RBC/100 WBC (Bld) [Ratio] 0.0 % 0.0 per 100 WBC [facility] Platelet mean volume (Bld) [Entitic vol] 10.5 fL 8.1 - 13.5 fL [facility] Platelets (Bld) [#/Vol] 159 10*3/uL [facility] RBC (Bld) [#/Vol] 3.30 10*6/uL Low 3.95 - 5.1 1 m/uL [facility] Segmented neutrophils/100 WBC (Bld) 3.49 % [facility] WBC other (Bld) [#/Vol] 5.7 [facility] CBC with Diffon 04-13-2024 Abs. Basophil <0.03 Normal 0.00-0.20 [facility] Comment on above: Performed By: #### C P, LIP, CDP #### [facility] [address] [place] [address] Concrete Layer: Lakhwinder Tim MD Abs.Imm.Granulocyte <0.03 Normal 0.00-0.30 [facility] Comment on above: Performed By: #### C P, LIP, CDP #### [facility] [address] [place], [place] [id number] Concrete Layer: Lakhwinder Tim MD Abs.Neutrophil (Seg) 3.49 k/uL Normal 1.50-8.10 [facility] Comment on above: Performed By: #### C P, LIP, CDP #### [facility] [address] [place], [place] [id number] Concrete Layer: Lakhwinder Tim MD Basophils/100 WBC (Bld) 0 % Normal 0-2 [facility] Comment on above: Performed By: #### C P, LIP, CDP #### Lab [address] [place] [address] Concrete Layer: Lakhwinder Tim MD Eosinophils (Bld) [#/Vol] 0.10 10*3/uL Normal 0.00-0.44 [facility] Comment on above: Performed By: #### C P, LIP, CDP #### [facility] [address] [place], [place] [id number] Concrete Layer: Lakhwinder Tim MD Eosinophils/100 WBC (Bld) 2 % Normal 1-4 [facility] Comment on above: Performed By: #### C P, LIP, CDP #### [address] [place], [place] [id number] Concrete Layer: Lakhwinder Tim MD Erythrocyte distribution width (RBC) [Ratio] 13.4 % Normal 11.8-14.4 [facility] Comment on above: Performed By: #### C P, LIP, CDP #### [address] [place] [id number] Concrete Layer: Lakhwinder Tim MD Hematocrit (Bld) [Volume fraction] 29.0 % Low 36.3-47.1 [facility] Comment on above: Performed By: #### C P, LIP, CDP #### [address] [place], [facility]83 Concrete Layer: Lakhwinder Tim MD Hemoglobin (Bld) [Mass/Vol] 9.3 g/dL Low 11.9-15.1 [facility] Comment on above: Performed By: #### C P, LIP, CDP #### [address] [place], [facility]83 Concrete Layer: Lakhwinder Tim MD Immature granulocytes/100 WBC (Bld) 0 % Normal 0 [facility] Comment on above: Performed By: #### C P, LIP, CDP #### [address] [place], [facility]83 Concrete Layer: Lakhwinder Tim MD Lymphocytes (Bld) [#/Vol] 1.44 10*3/uL Normal 1.10-3.70 [facility] Comment on above: Performed By: #### C P, LIP, CDP #### [address] [place], [facility]83 Concrete Layer: Lakhwinder Tim MD Lymphocytes/100 WBC (Bld) 25 % Normal 24-43 [facility] Comment on above: Performed By: #### C P, LIP, CDP #### [facility] [address] [place], [facility]83 Concrete Layer: Lakhwinder Tim MD MCH (RBC) [Entitic mass] 28.2 pg Normal 25.2-33.5 [facility] Comment on above: Performed By: #### C P, LIP, CDP #### [facility] [address] [place], [facility] Concrete Layer: Lakhwinder Tim MD MCHC (RBC) [Mass/Vol] 32.1 g/dL Normal 28.4-34.8 [facility] Comment on above: Performed By: #### C P, LIP, CDP #### [facility] [address] [place], [facility] Concrete Layer: Lakhwinder Tim MD MCV (RBC) [Entitic vol] 87.9 fL Normal 82.6-102.9 [facility] Comment on above: Performed By: #### C P, LIP, CDP #### [facility] [address] [place], [facility] Concrete Layer: Lakhwinder Tim MD Monocytes (Bld) [#/Vol] 0.64 10*3/uL Normal 0.10-1.20 [facility] Comment on above: Performed By: #### C P, LIP, CDP #### [facility] [address] [place], [facility] Concrete Layer: Lakhwinder Tim MD Monocytes/100 WBC (Bld) 11 % Normal 3-12 [facility] Comment on above: Performed By: #### C P, LIP, CDP #### [facility] [address] [place], [facility] Concrete Layer: Lakhwinder Tim MD Neutrophil (Seg) 62 % Normal 36-65 [facility] Comment on above: Performed By: #### C P, LIP, CDP #### [facility] [address] [place] [address] Concrete Layer: Lakhwinder Tim MD NRBC Automated 0.0 per 100 WBC Normal 0.0 [facility] Comment on above: Performed By: #### C P, LIP, CDP #### [facility] [address] [place], [place] [id number] Concrete Layer: Lakhwinder Tim MD Platelet mean volume (Bld) [Entitic vol] 10.5 fL Normal 8.1-13.5 [facility] Comment on above: Performed By: #### C P, LIP, CDP #### [address] [place], [place] [id number] Concrete Layer: Lakhwinder Tim MD Platelets (Bld) [#/Vol] 159 10*3/uL Normal 138-453 [facility] Comment on above: Performed By: #### C P, LIP, CDP #### [address] [place], [place] [id number] Concrete Layer: Lakhwinder Tim MD RBC (Bld) [#/Vol] 3.30 10*6/uL Low 3.95-5.11 [facility] Comment on above: Performed By: #### C P, LIP, CDP #### [address] [place], [place] [id number] Concrete Layer: Lakhwinder Tim MD WBC (Bld) [#/Vol] 5.7 10*3/uL Normal 3.5-11.3 [facility] Comment on above: Performed By: #### C P, LIP, CDP #### [address] [place] [address] Concrete Layer: Lakhwinder Tim MD Comp Metabolic Pr/rfx MGon 1 Albumin [Mass/Vol] 3.2 g/dL Low 3.5-5.2 [facility] Comment on above: Performed By: #### C P, LIP, CDP #### [facility] [address] [place], [place] [id number] Concrete Layer: Lakhwinder Tim MD Albumin/Glob Ratio 1.2 Normal 1.0-2.5 [facility] Comment on above: Performed By: #### C P, LIP, CDP #### Lab [address] [place] [id number] Concrete Layer: Lakhwinder Tim MD Alkaline Phos 46 U/L Normal 35-104 [facility] Comment on above: Performed By: #### C P, LIP, CDP #### [facility] [address] [place], [place] [id number] Concrete Layer: Lakhwinder Tim MD ALT [Catalytic activity/Vol] 9 U/L Low 10-35 [facility] Comment on above: Performed By: #### C P, LIP, CDP #### [address] [place], [place] [id number] Concrete Layer: Lakhwinder Tim MD Anion gap [Moles/Vol] 9 mmol/L Normal 9-16 [facility] Comment on above: Performed By: #### C P, LIP, CDP #### [facility] [address] [place], [place] [id number] Concrete Layer: Lakhwinder Tim MD AST [Catalytic activity/Vol] 11 U/L Normal 10-35 [facility] Comment on above: Performed By: #### C P, LIP, CDP #### [facility] [address] [place], [place] [id number] Concrete Layer: Lakhwinder Tim MD Bilirubin [Mass/Vol] 0.4 mg/dL Normal 0.00-1.20 [facility] Comment on above: Performed By: #### C P, LIP, CDP #### [facility] [address] [place], [place] [id number] Concrete Layer: Lakhwinder Tim MD BUN/CRE Ratio 15 Normal 9-20 [facility] Comment on above: Performed By: #### C P, LIP, CDP #### [facility] [address] [place], [place] [id number] Concrete Layer: Lakhwinder Tim MD Calcium [Mass/Vol] 8.4 mg/dL Low 8.6-10.4 [facility] Comment on above: Performed By: #### C P, LIP, CDP #### [facility] [address] [place], [place] [id number] Concrete Layer: Lakhwinder Tim MD Chloride [Moles/Vol] 104 mmol/L Normal 98-107 [facility] Comment on above: Performed By: #### C P, LIP, CDP #### [facility] [address] [place], [place] [id number] Concrete Layer: Lakhwinder Tim MD CO2 [Moles/Vol] 26 mmol/L Normal 20-31 [facility] Comment on above: Performed By: #### C P, LIP, CDP #### [facility] [address] [place], [place] [id number] Concrete Layer: Lakhwinder Tim MD Creatinine [Mass/Vol] 0.4 mg/dL Low 0.50-0.90 [facility] Comment on above: Performed By: #### C P, LIP, CDP #### Lab [address] [place] [address] Concrete Layer: Lakhwinder Tim MD GFR/1.73 sq M.predicted among non-blacks MDRD (S/P/Bld) [Vol rate/Area] mL/min/{1.73_m2} Normal >60 [facility] Comment on above: Result Comment: These results [...] By: #### C P, LIP, CDP #### [address] [place], [place] [id number] Concrete Layer: Lakhwinder Tim MD Glucose [Mass/Vol] 95 mg/dL Normal 74-99 [facility] Comment on above: Performed By: #### C P, LIP, CDP #### [address] [place], [place] [id number] Concrete Layer: Lakhwinder Tim MD Potassium [Moles/Vol] 3.3 mmol/L Low 3.7-5.3 [facility] Comment on above: Performed By: #### C P, LIP, CDP #### [address] [place], [place] [id number] Concrete Layer: Lakhwinder Tim MD Protein [Mass/Vol] 5.9 g/dL Low 6.6-8.7 [facility] Comment on above: Performed By: #### C P, LIP, CDP #### [address] [place], [place] [id number] Concrete Layer: Lakhwinder Tim MD Sodium [Moles/Vol] 139 mmol/L Normal 136-145 [facility] Comment on above: Performed By: #### C P, LIP, CDP #### Lab [address] [place] [address] Dr. [place], [place] [id number] Concrete Layer: Lakhwinder Tim MD Urea nitrogen [Mass/Vol] 6 mg/dL Normal 6-20 [facility] Comment on above: Performed By: #### C P, LIP, CDP #### [address] [place], [place] [id number] Concrete Layer: Lakhwinder Tim MD Comprehensive Metabolic Pane l w/ Reflex to [facility] 04-13-2024 Albumin [Mass/Vol] 3.2 g/dL Low 3.5 - 5.2 g/dL [facility] Albumin/Globulin [Mass ratio] 1.2 {ratio} 1.0 - 2.5 [facility] ALP [Catalytic activity/Vol] 46 U/L 35 - 104 U/L [facility] ALT [Catalytic activity/Vol] 9 U/L Low 10 - 35 U/L [facility] Anion gap [Moles/Vol] 9 mmol/L 9 - 16 mmol/L [facility] AST [Catalytic activity/Vol] 11 U/L 10 - 35 U/L [facility] Bilirubin [Mass/Vol] 0.4 mg/dL 0.00 - 1.20 mg/dL [facility] Calcium [Mass/Vol] 8.4 mg/dL Low 8.6 - 10. 4 mg/dL [facility] Chloride [Moles/Vol] 104 mmol/L 98 - 10 7 mmol/L [facility] CO2 [Moles/Vol] 26 mmol/L 20 - 31 mmol/L [facility] Creatinine [Mass/Vol] 0.4 mg/dL Low 0.50 - 0.90 mg/dL [facility] Bel, Love [place] Rate - PINF Fort [...] [Mass/Vol] 95 mg/dL 74 - 99 mg/dL [facility] Interpretation and review of laboratory results Abnormal [facility] Potassium [Moles/Vol] 3.3 mmol/L Low 3.7 - 5.3 mmol/L [facility] Protein [Mass/Vol] 5.9 g/dL Low 6.6 - 8.7 g/dL [facility] Sodium [Moles/Vol] 139 mmol/L 136 - 145 mmol/L [facility] Urea nitrogen [Mass/Vol] 6 mg/dL 6 - 20 mg/dL [facility] Urea nitrogen/Creatinine [Mass ratio] 15 mg/mg 9 - 20 [facility] Magnesiumon 04-13-2024 Magnesium [Mass/Vol] 1.6 mg/dL 1.6 - 2 .6 mg/dL [facility] Magnesium [Mass/Vol] 1.6 mg/dL Normal 1.6-2.6 [facility] Comment on above: Performed By: #### C P, TOM, CDP #### Lab [address] [place] [id number] Concrete Layer: Lakhwinder Tim MD XR ABDOMEN (KUB) (SINGLE AP VIEW)on 04-13-2024 XR ABDOMEN (KUB) (SINGLE AP VIEW) EXAMINATION: ONE SUPINE XRAY VIEW(S) OF THE ABDOMEN 04/13/2024 7:21 am COMPARISON: Tile Inspector film of a CT abdomen of 10 [...] Maeve Price MD 04/13/24 Final result Normal [facility] XR Abdomen Single viewon 1. Nonobstructive uriel wel gas pattern. 2. Mildly increased colonic gas likely related to minimal ileus. [facility] RIS CONSOLIDATED EXAMINATION: ONE SUPINE XRAY VIEW(S) OF THE ABDOMEN 04/13/2024 7:21 am COMPARISON: Tile Inspector film of a CT abdomen of 10 April 2024 HISTORY: ORDERING SYSTEM PROVIDED HISTORY: Abd pain TECHNOLOGIST PROVIDED HISTORY: Abd pain FINDINGS: Midline skin clips are noted, new since prior study. The bowel gas pattern is nonobstructive. No free air is noted. Mildly increased colonic gas is noted likely related to minimal ileus. Lung bases are clear. [facility] RIS CONSOLIDATED Dee, Maeve Alexandre MD - 04/13/2024 EXAMINATION: ONE SUPINE XRAY VIEW(S) OF THE ABDOMEN 04/13/2024 7:21 am COMPARISON: Tile Inspector film of a CT abdomen of 10 [...] colonic gas likely related to minimal ileus. [facility] Study observation (narrative) [facility] XR Abdomen Single viewOrdere d By: Maeve Price on 04-13-2024 [facility] Work Phone: CBC auto differentialon 03-20 Basophils (Bld) [#/Vol] [facility] Basophils/100 WBC (Bld) 0 % 0 - 2 % [facility] Eosinophils (Bld) [#/Vol] [facility] Eosinophils/100 WBC (Bld) 0 % Low 1 - 4 % [facility] Erythrocyte distribution width (RBC) [Ratio] 13.4 % 11.8 - 14.4 % [facility] Hematocrit (Bld) [Volume fraction] 28.0 % Low 36.3 - 47.1 % [facility] Hemoglobin (Bld) [Mass/Vol] 8.9 g/dL Low 11.9 - 15.1 g/dL [facility] Immature granulocytes (Bld) [#/Vol] [facility] Well Immature granulocytes/100 WBC (Bld) 0 % 0 [facility] Interpretation and review of laboratory results Abnormal [facility] Lymphocytes/100 WBC (Bld) 33 % 24 - 43 % [facility] Lymphocytes/100 WBC (Bld) 2.08 % [facility] MCH (RBC) [Entitic mass] 28.1 pg 25.2 - 33.5 pg [facility] MCHC (RBC) [Mass/Vol] 31.8 g/dL 28.4 - 34.8 g/dL [facility] MCV (RBC) [Entitic vol] 88.3 fL 82.6 - 102.9 fL [facility] Monocytes/100 WBC (Bld) 9 % 3 - 12 % [facility] Monocytes/100 WBC (Bld) 0.55 % [facility] Neutrophils/100 WBC (Bld) 58 % 36 - 65 % [facility] Nucleated RBC/100 WBC (Bld) [Ratio] 0.0 % 0.0 per 100 WBC [facility] Platelet mean volume (Bld) [Entitic vol] 10.7 fL 8.1 - 13.5 fL [facility] Platelets (Bld) [#/Vol] 139 10*3/uL [facility] RBC (Bld) [#/Vol] 3.17 10*6/uL Low 3.95 - 5.1 1 m/uL [facility] Segmented neutrophils/100 WBC (Bld) 3.71 % [facility] WBC other (Bld) [#/Vol] 6.4 [facility] CBC with Diffon 04-12-2024 Abs. Basophil <0.03 Normal 0.00-0.20 [facility] Comment on above: Performed By: #### C DP #### Lab [address] [place] [address] [place] [address] Concrete Layer: Lakhwinder Tim MD Abs. Eosinophil <0.03 Normal 0.00-0.44 [facility] Comment on above: Performed By: #### C DP #### Lab [address] [place] [address] [place] [address] Concrete Layer: Lakhwinder Tim MD Abs.Imm.Granulocyte <0.03 Normal 0.00-0.30 [facility] Comment on above: Performed By: #### C DP #### Lab [address] [place] [address] Concrete Layer: Lakhwinder Tim MD Abs.Neutrophil (Seg) 3.71 k/uL Normal 1.50-8.10 [facility] Comment on above: Performed By: #### C DP #### Lab [address] [place] [address] Dr. [place], [place] [id number] Concrete Layer: Lakhwinder Tim MD Basophils/100 WBC (Bld) 0 % Normal 0-2 [facility] Comment on above: Performed By: #### C DP #### [address] [place], [place] [id number] Concrete Layer: Lakhwinder Tim MD Eosinophils/100 WBC (Bld) 0 % Low 1-4 [facility] Comment on above: Performed By: #### C DP #### [address] [place], [place] [id number] Concrete Layer: Lakhwinder Tim MD Erythrocyte distribution width (RBC) [Ratio] 13.4 % Normal 11.8-14.4 [facility] Comment on above: Performed By: #### C DP #### [address] [place], [place] [id number] Concrete Layer: Lakhwinder Tim MD Hematocrit (Bld) [Volume fraction] 28.0 % Low 36.3-47.1 [facility] Comment on above: Performed By: #### C DP #### [address] [place], [place] [id number] Concrete Layer: Lakhwinder Tim MD Hemoglobin (Bld) [Mass/Vol] 8.9 g/dL Low 11.9-15.1 [facility] Comment on above: Performed By: #### C DP #### [address] [place], [place] [id number] Concrete Layer: Lakhwinder Tim MD Immature granulocytes/100 WBC (Bld) 0 % Normal 0 [facility] Comment on above: Performed By: #### C DP #### Lab [address] [place], [facility]83 Concrete Layer: Lakhwinder Tim MD Lymphocytes (Bld) [#/Vol] 2.08 10*3/uL Normal 1.10-3.70 [facility] Comment on above: Performed By: #### C DP #### [facility] [address] [place], [facility]83 Concrete Layer: Lakhwinder Tim MD Lymphocytes/100 WBC (Bld) 33 % Normal 24-43 [facility] Comment on above: Performed By: #### C DP #### [address] [place], [facility]83 Concrete Layer: Lakhwinder Tim MD MCH (RBC) [Entitic mass] 28.1 pg Normal 25.2-33.5 [facility] Comment on above: Performed By: #### C DP #### [address] [place], [facility]83 Concrete Layer: Lakhwinder Tim MD MCHC (RBC) [Mass/Vol] 31.8 g/dL Normal 28.4-34.8 [facility] Comment on above: Performed By: #### C DP #### [address] [place], [place] [address] Concrete Layer: Lakhwinder Tim MD MCV (RBC) [Entitic vol] 88.3 fL Normal 82.6-102.9 [facility] Comment on above: Performed By: #### C DP #### [address] [place] [id number] Concrete Layer: Lakhwinder Tim MD Monocytes (Bld) [#/Vol] 0.55 10*3/uL Normal 0.10-1.20 [facility] Comment on above: Performed By: #### C DP #### Lab [address] [place], [place] [id number] Concrete Layer: Lakhwinder Tim MD Monocytes/100 WBC (Bld) 9 % Normal 3-12 [facility] Comment on above: Performed By: #### C DP #### Lab [address] [place], [place] [id number] Concrete Layer: Lakhwinder Tim MD Neutrophil (Seg) 58 % Normal 36-65 [facility] Comment on above: Performed By: #### C DP #### Lab [address] [place], [place] [id number] Concrete Layer: Lakhwinder Tim MD NRBC Automated 0.0 per 100 WBC Normal 0.0 [facility] Comment on above: Performed By: #### C DP #### [facility] [address] [place], [place] [id number] Concrete Layer: Lakhwinder Tim MD Platelet mean volume (Bld) [Entitic vol] 10.7 fL Normal 8.1-13.5 [facility] Comment on above: Performed By: #### C DP #### [address] [place], [place] [id number] Concrete Layer: Lakhwinder Tim MD Platelets (Bld) [#/Vol] 139 10*3/uL Normal 138-453 [facility] Comment on above: Performed By: #### C DP #### Lab [address] [place] [address] Dr. [place], [place] [phone] Concrete Layer: Lakhwinder Tim MD RBC (Bld) [#/Vol] 3.17 10*6/uL Low 3.95-5.11 [facility] Comment on above: Performed By: #### C DP #### [address] [place], [place] [id number] Concrete Layer: Lakhwinder Tim MD WBC (Bld) [#/Vol] 6.4 10*3/uL Normal 3.5-11.3 [facility] Comment on above: Performed By: #### C DP #### Lab [address] [place], [place] [id number] Concrete Layer: Lakhwinder Tim MD Comp Metabolic Pr/rfx MGon 1 0- Albumin [Mass/Vol] 3.1 g/dL Low 3.5-5.2 [facility] Comment on above: Performed By: #### C DP #### Lab [address] [place], [place] [id number] Concrete Layer: Lakhwinder Tim MD Albumin/Glob Ratio 1.2 Normal 1.0-2.5 [facility] Comment on above: Performed By: #### C DP #### Lab [address] [place] [address] Concrete Layer: Lakhwinder Tim MD Alkaline Phos 41 U/L Normal 35-104 [facility] Comment on above: Performed By: #### C DP #### Lab [address] [place] [address] Concrete Layer: Lakhwinder Tim MD ALT [Catalytic activity/Vol] 11 U/L Normal 10-35 [facility] Comment on above: Performed By: #### C DP #### Lab [address] [place] [address] Concrete Layer: Lakhwinder Tim MD Anion gap [Moles/Vol] 9 mmol/L Normal 9-16 [facility] Comment on above: Performed By: #### C DP #### Lab [address] [place] [address] Concrete Layer: Lakhwinder Tim MD AST [Catalytic activity/Vol] 9 U/L Low 10-35 [facility] Comment on above: Performed By: #### C DP #### Lab [address] [place], [place] [id number] Concrete Layer: Lakhwinder Tim MD Bilirubin [Mass/Vol] 0.3 mg/dL Normal 0.00-1.20 [facility] Comment on above: Performed By: #### C DP #### Lab [address] [place] [id number] Concrete Layer: Lakhwinder Tim MD BUN/CRE Ratio 24 High 9-20 [facility] Comment on above: Performed By: #### C DP #### Lab [address] [place] [id number] Concrete Layer: Lakhwinder Tim MD Calcium [Mass/Vol] 8.2 mg/dL Low 8.6-10.4 [facility] Comment on above: Performed By: #### C DP #### Lab [address] [place], [place] [id number] Concrete Layer: Lakhwinder Tim MD Chloride [Moles/Vol] 106 mmol/L Normal 98-107 [facility] Comment on above: Performed By: #### C DP #### Lab [address] [place] [id number] Concrete Layer: Lakhwinder Tim MD CO2 [Moles/Vol] 24 mmol/L Normal 20-31 [facility] Comment on above: Performed By: #### C DP #### Lab [address] [place], [place] [id number] Concrete Layer: Lakhiwnder Tim MD Creatinine [Mass/Vol] 0.5 mg/dL Normal 0.50-0.90 [facility] Comment on above: Performed By: #### C DP #### Lab [address] [place], [place] [id number] Concrete Layer: Lakhwinder Tim MD GFR/1.73 sq M.predicted among non-blacks MDRD (S/P/Bld) [Vol rate/Area] mL/min/{1.73_m2} Normal >60 [facility] Comment on above: Result Comment: These results [...] secretion. Performed By: #### C DP #### Lab [address] [place] [id number] Concrete Layer: Lakhwinder Tim MD Glucose [Mass/Vol] 83 mg/dL Normal 74-99 [facility] Comment on above: Performed By: #### C DP #### [facility] [address] [place], [place] [id number] Concrete Layer: Lakhwinder Tim MD Potassium [Moles/Vol] 3.3 mmol/L Low 3.7-5.3 [facility] Comment on above: Performed By: #### C DP #### [address] [place] [address] Concrete Layer: Lakhwinder Tim MD Protein [Mass/Vol] 5.8 g/dL Low 6.6-8.7 [facility] Comment on above: Performed By: #### C DP #### Lab [address] [place] [address] [place] [id number] Concrete Layer: Lakhwinder Tim MD Sodium [Moles/Vol] 139 mmol/L Normal 136-145 [facility] Comment on above: Performed By: #### C DP #### Lab [address] [place] [address] Concrete Layer: Lakhwinder Tim MD Urea nitrogen [Mass/Vol] 12 mg/dL Normal 6-20 [facility] Comment on above: Performed By: #### C DP #### Lab [address] [place] MD [id number] Concrete Layer: Lakhwinder Tim MD Comprehensive Metabolic Pane l w/ Reflex to [facility] 04-12-2024 Albumin [Mass/Vol] 3.1 g/dL Low 3.5 - 5.2 g/dL [facility] Albumin/Globulin [Mass ratio] 1.2 {ratio} 1.0 - 2.5 [facility] ALP [Catalytic activity/Vol] 41 U/L 35 - 104 U/L [facility] ALT [Catalytic activity/Vol] 11 U/L 10 - 35 U/L [facility] Anion gap [Moles/Vol] 9 mmol/L 9 - 16 mmol/L [facility] AST [Catalytic activity/Vol] 9 U/L Low 10 - 35 U/L [facility] Bilirubin [Mass/Vol] 0.3 mg/dL 0.00 - 1.20 mg/dL [facility] Calcium [Mass/Vol] 8.2 mg/dL Low 8.6 - 10. 4 mg/dL [facility] Chloride [Moles/Vol] 106 mmol/L 98 - 10 7 mmol/L [facility] CO2 [Moles/Vol] 24 mmol/L 20 - 31 mmol/L [facility] Creatinine [Mass/Vol] 0.5 mg/dL 0.50 - 0.90 mg/dL [facility] Est, Love Van Rate - PINF Fort [...] [Mass/Vol] 83 mg/dL 74 - 99 mg/dL [facility] Interpretation and review of laboratory results Abnormal [facility] Potassium [Moles/Vol] 3.3 mmol/L Low 3.7 - 5.3 mmol/L [facility] Protein [Mass/Vol] 5.8 g/dL Low 6.6 - 8.7 g/dL [facility] Sodium [Moles/Vol] 139 mmol/L 136 - 145 mmol/L [facility] Urea nitrogen [Mass/Vol] 12 mg/dL 6 - 20 mg/dL [facility] Urea nitrogen/Creatinine [Mass ratio] 24 mg/mg High 9 - 20 [facility] EKG Rhythm Stripon [facility] Magnesiumon 04-12-2024 Magnesium [Mass/Vol] 1.7 mg/dL 1.6 - 2 .6 mg/dL [facility] Magnesium [Mass/Vol] 1.7 mg/dL Normal 1.6-2.6 [facility] Comment on above: Performed By: #### C DP #### Lab [address] [place] [address] Concrete Layer: Lakhwinder Tim MD SURGICAL PATHOLOGY REPORTon 04-12-2024 Surgical Pathology Report Path Number: [id number] -- Diagnosis -- A. APPENDIX, APPENDECTOMY: Unremarkable appendix with minimal serosal adhesions. Sara Genao M.D. Electronically Signed [facility]04/12/2024 Clinical Information Pre-Op Diagnosis: PERITONEAL CAVITY FREE [...] tip and margin in 1. tm Kay Norriser/kb2:04/11/2024 Microscopic Description Microscopic examination performed. Processing Lab: [address] [address] Interpretation Performed at [address] [address] SURGICAL PATHOLOGY CONSULTATION Patient Name: BARBRA CLAROS [facility] Rec: [id number] [facility] [employer] [facility] ANATOMIC PATHOLOGY [facility] [place], [place] [address] [facility] CBC auto differentialon 03-20 Basophils (Bld) [#/Vol] 0.00 10*3/uL [facility] Basophils/100 WBC (Bld) 0 % 0 - 2 % [facility] Eosinophils (Bld) [#/Vol] 0.00 10*3/uL [facility] Eosinophils/100 WBC (Bld) 0 % Low 1 - 4 % [facility] Erythrocyte distribution width (RBC) [Ratio] 13.7 % 11.8 - 14.4 % [facility] Hematocrit (Bld) [Volume fraction] 34.4 % Low 36.3 - 47.1 % [facility] Hemoglobin (Bld) [Mass/Vol] 11.1 g/dL Low 11.9 - 15.1 g/dL [facility] Immature granulocytes (Bld) [#/Vol] 0.00 10*3/uL [facility] Immature granulocytes/100 WBC (Bld) 0 % 0 [facility] Interpretation and review of laboratory results Abnormal [facility] Lymphocytes/100 WBC (Bld) 8 % Low 24 - 43 % [facility] Lymphocytes/100 WBC (Bld) 0.75 % Low [facility] MCH (RBC) [Entitic mass] 28.2 pg 25.2 - 33.5 pg [facility] MCHC (RBC) [Mass/Vol] 32.3 g/dL 28.4 - 34.8 g/dL [facility] MCV (RBC) [Entitic vol] 87.3 fL 82.6 - 102.9 fL [facility] Monocytes/100 WBC (Bld) 1 % Low 3 - 12 % [facility] Monocytes/100 WBC (Bld) 0.09 % Low [facility] Morphology [place] (Bld) [Interp] Platelet scan shows Normal Platelets [facility] Neutrophils/100 WBC (Bld) 91 % High 36 - 65 % [facility] Nucleated RBC/100 WBC (Bld) [Ratio] 0.0 % 0.0 per 100 WBC [facility] Platelet mean volume (Bld) [Entitic vol] 10.8 fL 8.1 - 13.5 fL [facility] Platelets (Bld) [#/Vol] 170 10*3/uL [facility] RBC (Bld) [#/Vol] 3.94 10*6/uL Low 3.95 - 5.1 1 m/uL [facility] Segmented neutrophils/100 WBC (Bld) 8.56 % High [facility] WBC other (Bld) [#/Vol] 9.4 [facility] CBC with Diffon 04-11-2024 Abs. Basophil 0.00 k/uL Normal 0.0-0.2 [facility] Comment on above: Performed By: #### C P, LIP, CDP #### Lab [address] [place] [address] [place] [address] Concrete Layer: Lakhwinder Tim MD Abs.Imm.Granulocyte 0.00 k/uL Normal 0.00-0.30 [facility] Comment on above: Performed By: #### C P, LIP, CDP #### Lab [address] [place] [address] Dr. [place], [facility]83 Concrete Layer: Lakhwinder Tim MD Abs.Neutrophil (Seg) 8.56 k/uL High 1.50-8.10 [facility] Comment on above: Performed By: #### C P, LIP, CDP #### [address] [place] [address] Concrete Layer: Lakhwinder Tim MD Basophils/100 WBC (Bld) 0 % Normal 0-2 [facility] Comment on above: Performed By: #### C P, LIP, CDP #### Lab [address] [place] [address] Dr. [place], [facility]83 Concrete Layer: Lakhwinder Tim MD Eosinophils (Bld) [#/Vol] 0.00 10*3/uL Normal 0.00-0.44 [facility] Comment on above: Performed By: #### C P, LIP, CDP #### [address] [place], [facility]83 Concrete Layer: Lakhwinder Tim MD Eosinophils/100 WBC (Bld) 0 % Low 1-4 [facility] Comment on above: Performed By: #### C P, LIP, CDP #### [address] [place] [address] Concrete Layer: Lakhwinder Tim MD Immature granulocytes/100 WBC (Bld) 0 % Normal 0 [facility] Comment on above: Performed By: #### C P, LIP, CDP #### [address] [place] [address] Concrete Layer: Lakhwinder Tim MD Lymphocytes (Bld) [#/Vol] 0.75 10*3/uL Low 1.10-3.70 [facility] Comment on above: Performed By: #### C P, LIP, CDP #### [address] [place] [address] Concrete Layer: Lakhwinder Tim MD Lymphocytes/100 WBC (Bld) 8 % Low 24-43 [facility] Comment on above: Performed By: #### C P, LIP, CDP #### [address] [place] [id number] Concrete Layer: Lakhwinder Tim MD Monocytes (Bld) [#/Vol] 0.09 10*3/uL Low 0.10-1.20 [facility] Comment on above: Performed By: #### C P, LIP, CDP #### [address] [place] [address] Concrete Layer: Lakhwinder Tim MD Monocytes/100 WBC (Bld) 1 % Low 3-12 [facility] Comment on above: Performed By: #### C P, LIP, CDP #### Lab [address] [place], [place] [id number] Concrete Layer: Lakhwinder Tim MD Morphology [place] (Bld) [Interp] Platelet scan shows Normal Platelets Normal [facility] Comment on above: Performed By: #### C P, LIP, CDP #### Lab [address] [place], [place] [id number] Concrete Layer: Lakhwinder Tim MD Neutrophil (Seg) 91 % High 36-65 [facility] Comment on above: Performed By: #### C P, LIP, CDP #### [address] [place] [address] Concrete Layer: Lakhwinder Tim MD Erythrocyte distribution width (RBC) [Ratio] 13.7 % Normal 11.8-14.4 [facility] Comment on above: Performed By: #### C P, LIP, CDP #### [address] [place] [address] Concrete Layer: Lakhwinder Tim MD Hematocrit (Bld) [Volume fraction] 34.4 % Low 36.3-47.1 [facility] Comment on above: Performed By: #### C P, LIP, CDP #### Lab [address] [place] [address] [place] [address] Concrete Layer: Lakhwinder Tim MD Hemoglobin (Bld) [Mass/Vol] 11.1 g/dL Low 11.9-15.1 [facility] Comment on above: Performed By: #### C P, LIP, CDP #### [address] [place] [address] Concrete Layer: Lakhwinder Tim MD MCH (RBC) [Entitic mass] 28.2 pg Normal 25.2-33.5 [facility] Comment on above: Performed By: #### C P, LIP, CDP #### [address] [place], [facility]83 Concrete Layer: Lakhwinder Tim MD MCHC (RBC) [Mass/Vol] 32.3 g/dL Normal 28.4-34.8 [facility] Comment on above: Performed By: #### C P, LIP, CDP #### [address] [place], [facility]83 Concrete Layer: Lakhwinder Tim MD MCV (RBC) [Entitic vol] 87.3 fL Normal 82.6-102.9 [facility] Comment on above: Performed By: #### C P, LIP, CDP #### [address] [place], [facility]83 Concrete Layer: Lakhwinder Tim MD NRBC Automated 0.0 per 100 WBC Normal 0.0 [facility] Comment on above: Performed By: #### C P, LIP, CDP #### [address] [place], [facility]83 Concrete Layer: Lakhwinder Tim MD Platelet mean volume (Bld) [Entitic vol] 10.8 fL Normal 8.1-13.5 [facility] Comment on above: Performed By: #### C P, LIP, CDP #### [address] [place], [place] [address] Concrete Layer: Lakhwinder Tim MD Platelets (Bld) [#/Vol] 170 10*3/uL Normal 138-453 [facility] Comment on above: Performed By: #### C P, LIP, CDP #### [address] [place] [address] Concrete Layer: Lakhwinder Tim MD RBC (Bld) [#/Vol] 3.94 10*6/uL Low 3.95-5.11 [facility] Comment on above: Performed By: #### C P, LIP, CDP #### Lab [address] [place], [place] [id number] Concrete Layer: Lakhwinder Tim MD WBC (Bld) [#/Vol] 9.4 10*3/uL Normal 3.5-11.3 [facility] Comment on above: Performed By: #### C P, LIP, CDP #### Lab [address] [place], [place] [id number] Concrete Layer: Lakhwinder Tim MD Comp Metabolic Pr/rfx MGon 1 0- Albumin [Mass/Vol] 3.6 g/dL Normal 3.5-5.2 [facility] Comment on above: Performed By: #### C P, LIP, CDP #### [address] [place], [place] [id number] Concrete Layer: Lakhwinder Tim MD Albumin/Glob Ratio 1.2 Normal 1.0-2.5 [facility] Comment on above: Performed By: #### C P, LIP, CDP #### [address] [place], [place] [id number] Concrete Layer: Lakhwinder Tim MD Alkaline Phos 49 U/L Normal 35-104 [facility] Comment on above: Performed By: #### C P, LIP, CDP #### Lab [address] [place], [place] [id number] Concrete Layer: Lakhwinder Tim MD ALT [Catalytic activity/Vol] 13 U/L Normal 10-35 [facility] Comment on above: Performed By: #### C P, LIP, CDP #### [facility] [address] [place] [address] Concrete Layer: Lakhwinder Tim MD Anion gap [Moles/Vol] 9 mmol/L Normal 9-16 [facility] Comment on above: Performed By: #### C P, LIP, CDP #### Lab [address] [place], [place] [id number] Concrete Layer: Lakhwinder Tim MD AST [Catalytic activity/Vol] 13 U/L Normal 10-35 [facility] Comment on above: Performed By: #### C P, LIP, CDP #### Lab [address] [place], [place] [id number] Concrete Layer: Lakhwinder Tim MD Bilirubin [Mass/Vol] 0.7 mg/dL Normal 0.00-1.20 [facility] Comment on above: Performed By: #### C P, LIP, CDP #### [facility] [address] [place], [place] [id number] Concrete Layer: Lakhwinder Tim MD BUN/CRE Ratio 18 Normal 9-20 [facility] Comment on above: Performed By: #### C P, LIP, CDP #### Lab [address] [place], [place] [id number] Concrete Layer: Lakhwinder Tim MD Calcium [Mass/Vol] 8.4 mg/dL Low 8.6-10.4 [facility] Comment on above: Performed By: #### C P, LIP, CDP #### [facility] [address] [place], [place] [id number] Concrete Layer: Lakhwinder Tim MD Chloride [Moles/Vol] 105 mmol/L Normal 98-107 [facility] Comment on above: Performed By: #### C P, LIP, CDP #### Lab [address] [place], [place] [id number] Concrete Layer: Lakhwinder Tim MD CO2 [Moles/Vol] 23 mmol/L Normal 20-31 [facility] Comment on above: Performed By: #### C P, LIP, CDP #### Lab [address] [place], [place] [id number] Concrete Layer: Lakhwinder Tim MD Creatinine [Mass/Vol] 0.5 mg/dL Normal 0.50-0.90 [facility] Comment on above: Performed By: #### C P LIP, CDP #### Lab [address] [place] [address] Concrete Layer: Lakhwinder Tim MD GFR/1.73 sq M.predicted among non-blacks MDRD (S/P/Bld) [Vol rate/Area] mL/min/{1.73_m2} Normal >60 [facility] Comment on above: Result Comment: These results [...] By: #### C P, LIP, CDP #### Lab [address] [place] [address] Concrete Layer: Lakhwinder Tim MD Glucose [Mass/Vol] 136 mg/dL High 74-99 [facility] Comment on above: Performed By: #### C P LIP, CDP #### [address] [place] [address] Concrete Layer: Lakhwinder Tim MD Potassium [Moles/Vol] 4.0 mmol/L Normal 3.7-5.3 [facility] Comment on above: Performed By: #### C P, LIP, CDP #### Lab [address] [place] [address] Concrete Layer: Lakhwinder Tim MD Protein [Mass/Vol] 6.6 g/dL Normal 6.6-8.7 [facility] Comment on above: Performed By: #### C P, LIP, CDP #### Lab [address] [place] MD [id number] Concrete Layer: Lakhwinder Tim MD Sodium [Moles/Vol] 137 mmol/L Normal 136-145 [facility] Comment on above: Performed By: #### C PTOM, CDP #### Lab [address] [place] [address] Concrete Layer: Lakhwinder Tim MD Urea nitrogen [Mass/Vol] 9 mg/dL Normal 6-20 [facility] Comment on above: Performed By: #### C TOM Mckeon, CDP #### Lab [address] [place] [address] Concrete Layer: Lakhwinder Tim MD Comprehensive Metabolic Pane l w/ Reflex to MGon 04-11-2024 Albumin [Mass/Vol] 3.6 g/dL 3.5 - 5.2 g/dL [facility] Albumin/Globulin [Mass ratio] 1.2 {ratio} 1.0 - 2.5 [facility] ALP [Catalytic activity/Vol] 49 U/L 35 - 104 U/L [facility] ALT [Catalytic activity/Vol] 13 U/L 10 - 35 U/L [facility] Anion gap [Moles/Vol] 9 mmol/L 9 - 16 mmol/L [facility] AST [Catalytic activity/Vol] 13 U/L 10 - 35 U/L [facility] Bilirubin [Mass/Vol] 0.7 mg/dL 0.00 - 1.20 mg/dL [facility] Calcium [Mass/Vol] 8.4 mg/dL Low 8.6 - 10. 4 mg/dL [facility] Chloride [Moles/Vol] 105 mmol/L 98 - 10 7 mmol/L [facility] CO2 [Moles/Vol] 23 mmol/L 20 - 31 mmol/L [facility] Creatinine [Mass/Vol] 0.5 mg/dL 0.50 - 0.90 mg/dL [facility] Est, Glom Filt Rate - PINF Fort [...] 136 mg/dL High 74 - 99 mg/dL [facility] Interpretation and review of laboratory results Abnormal [facility] Potassium [Moles/Vol] 4.0 mmol/L 3.7 - 5.3 mmol/L [facility] Protein [Mass/Vol] 6.6 g/dL 6.6 - 8.7 g/dL [facility] Sodium [Moles/Vol] 137 mmol/L 136 - 145 mmol/L [facility] Urea nitrogen [Mass/Vol] 9 mg/dL 6 - 20 mg/dL [facility] Urea nitrogen/Creatinine [Mass ratio] 18 mg/mg 9 - 20 [employer] EKG 12 LeadOrdered By: Haley mcghee on 04-11-2024 Atrial Rate 99 BPM [facility] Work Phone: P Crosby 46 degrees [facility] Work Phone: P-R Interval 148 ms [facility] Work Phone: Q-T Interval 362 ms [facility] Work Phone: QRS Duration 96 ms [facility] Work Phone: QTc Calculation (Bazett) 464 ms [facility] Work Phone: R Crosby 33 degrees [facility] Work Phone: T Crosby 37 degrees [facility] Work Phone: Ventricular Rate 99 BPM [employer] Work Phone: [facility] Work Phone: EKG 12 Leadon 04-11-2024 Poor [...] Hicks MD ([id number]) on 04/11/2024 8:01:06 AM [facility] RADIOLOGY Haley Hicks MD - 04/11/2024 Poor [...] Hicks MD ([id number]) on 04/11/2024 8:01:06 AM [facility] EKG Rhythm Stripon [facility] Surgical Pathology Reporton 04-11-2024 Surgical Pathology Report (NOTE) Path Number: [id number] -- Diagnosis -- A. APPENDIX, APPENDECTOMY: Unremarkable [...] Microscopic Description Microscopic examination performed. Processing Lab: [address] [address] Interpretation Performed at [facility] [address] [place] [address] SURGICAL PATHOLOGY CONSULTATION Patient Name: BARBRA CLAROS [facility] Rec: [id number] [facility] [employer] [facility] ANATOMIC PATHOLOGY [address] [facility] [facility]. [place], [place] [address] Normal [facility] TYPE AND SCREENon 04-11-2024 ABO and Rh group Nom (Bld) Blood group O Rh(D) positive [facility] Arm Band Number [id number] [facility] Blood Bank Sample Expiration 04/13/2024,2359 [facility] Blood group antibodies identified Nom Negative [facility] Type + Screenon 04-11-2024 Type + Screen Sample Expiration 04/13/2024,2359 Arm Band Number [id number] ABO/Rh(D) O POSITIVE Antibody Screen NEGATIVE [facility] Comment on above: Performed By: #### C DP #### Lab [address] [place] [address] [place] [address] Concrete Layer: Lakhwinder Tim MD Basic Metabolic Panelon 03-20 Anion gap [Moles/Vol] 10 mmol/L 9 - 16 mmol/L [facility] Calcium [Mass/Vol] 9.0 mg/dL 8.6 - 10. 4 mg/dL [facility] Chloride [Moles/Vol] 103 mmol/L 98 - 10 7 mmol/L [facility] CO2 [Moles/Vol] 26 mmol/L 20 - 31 mmol/L [facility] Creatinine [Mass/Vol] 0.5 mg/dL 0.50 - 0.90 mg/dL [facility] [employer] - PINF [facility] Comment [...] [Mass/Vol] 88 mg/dL 74 - 99 mg/dL [facility] Interpretation and review of laboratory results Abnormal [facility] Potassium [Moles/Vol] 3.7 mmol/L 3.7 - 5.3 mmol/L [facility] Sodium [Moles/Vol] 139 mmol/L 136 - 145 mmol/L [facility] Urea nitrogen [Mass/Vol] 11 mg/dL 6 - 20 mg/dL [facility] Urea nitrogen/Creatinine [Mass ratio] 22 mg/mg High 9 - 20 [facility] Basic Metabolic Profon 04-10 Anion gap [Moles/Vol] 10 mmol/L Normal 9-16 [facility] Comment on above: Performed By: #### C P, LIP, CDP #### Lab [address] [place] [address] Concrete Layer: Lakhwinder Tim MD BUN/CRE Ratio 22 High - [facility] Comment on above: Performed By: #### C P, LIP, CDP #### Lab [address] [place] [address] Concrete Layer: Lakhwinder Tim MD Calcium [Mass/Vol] 9.0 mg/dL Normal 8.6-10.4 [facility] Comment on above: Performed By: #### C P, LIP, CDP #### Lab [address] [place] [address] Concrete Layer: Lakhwinder Tim MD Chloride [Moles/Vol] 103 mmol/L Normal 98-107 [facility] Comment on above: Performed By: #### C P, LIP, CDP #### Lab [address] [place] [address] [place] [address] Concrete Layer: Lakhwinder Tim MD CO2 [Moles/Vol] 26 mmol/L Normal 20-31 [facility] Comment on above: Performed By: #### C P, LIP, CDP #### Lab [address] [place] [address] Concrete Layer: Lakhwinder Tim MD Creatinine [Mass/Vol] 0.5 mg/dL Normal 0.50-0.90 [facility] Comment on above: Performed By: #### C P, LIP, CDP #### Lab [address] [place] [address] Concrete Layer: Lakhwinder Tim MD GFR/1.73 sq M.predicted among non-blacks MDRD (S/P/Bld) [Vol rate/Area] mL/min/{1.73_m2} Normal >60 [facility] Comment on above: Result Comment: These results [...] By: #### C P, LIP, CDP #### [address] [place] [address] Concrete Layer: Lakhwinder Tim MD Glucose [Mass/Vol] 88 mg/dL Normal 74-99 [facility] Comment on above: Performed By: #### C P, LIP, CDP #### Lab [address] [place] [address] Concrete Layer: Lakhwinder Tim MD Potassium [Moles/Vol] 3.7 mmol/L Normal 3.7-5.3 [facility] Comment on above: Performed By: #### C P, LIP, CDP #### [facility] [address] [place] [address] Concrete Layer: Lakhwinder Tim MD Sodium [Moles/Vol] 139 mmol/L Normal 136-145 [facility] Comment on above: Performed By: #### C P, LIP, CDP #### Lab [address] [place] [address] Concrete Layer: Lakhwinder Tim MD Urea nitrogen [Mass/Vol] 11 mg/dL Normal 6-20 [facility] Comment on above: Performed By: #### C P, LIP, CDP #### Lab [address] [place] [address] Concrete Layer: Lakhwinder Tim MD CBC with Auto Differentialon 04-10-2024 Basophils (Bld) [#/Vol] [facility] Basophils/100 WBC (Bld) 0 % 0 - 2 % [facility] Eosinophils (Bld) [#/Vol] [facility] Eosinophils/100 WBC (Bld) 0 % Low 1 - 4 % [facility] Erythrocyte distribution width (RBC) [Ratio] 13.8 % 11.8 - 14.4 % [facility] Hematocrit (Bld) [Volume fraction] 36.3 % 36.3 - 47.1 % [facility] Hemoglobin (Bld) [Mass/Vol] 11.7 g/dL Low 11.9 - 15.1 g/dL [facility] Immature granulocytes (Bld) [#/Vol] [facility] Immature granulocytes/100 WBC (Bld) 0 % 0 [facility] Interpretation and review of laboratory results Abnormal [facility] Lymphocytes/100 WBC (Bld) 17 % Low 24 - 43 % [facility] Lymphocytes/100 WBC (Bld) 1.52 % [facility] MCH (RBC) [Entitic mass] 28.1 pg 25.2 - 33.5 pg [facility] MCHC (RBC) [Mass/Vol] 32.2 g/dL 28.4 - 34.8 g/dL [facility] MCV (RBC) [Entitic vol] 87.3 fL 82.6 - 102.9 fL [facility] Monocytes/100 WBC (Bld) 7 % 3 - 12 % [facility] Monocytes/100 WBC (Bld) 0.66 % [facility] Neutrophils/100 WBC (Bld) 76 % High 36 - 65 % [facility] Nucleated RBC/100 WBC (Bld) [Ratio] 0.0 % 0.0 per 100 WBC [facility] Platelet mean volume (Bld) [Entitic vol] 10.5 fL 8.1 - 13.5 fL [facility] Platelets (Bld) [#/Vol] 192 10*3/uL [facility] RBC (Bld) [#/Vol] 4.16 10*6/uL 3.95 - 5.1 1 m/uL [facility] Segmented neutrophils/100 WBC (Bld) 6.88 % [facility] WBC other (Bld) [#/Vol] 9.1 [facility] CBC with Diffon 04-10-2024 Abs. Basophil <0.03 Normal 0.00-0.20 [facility] Comment on above: Performed By: #### C P, LIP, CDP #### Lab [address] [place] [address] [place] [address] Concrete Layer: Lakhwinder Tim MD Abs. Eosinophil <0.03 Normal 0.00-0.44 [facility] Comment on above: Performed By: #### C P, LIP, CDP #### Lab [address] [place] [address] [place] [address] Concrete Layer: Lakhwinder Tim MD Abs.Imm.Granulocyte <0.03 Normal 0.00-0.30 [facility] Comment on above: Performed By: #### C P, LIP, CDP #### Lab [address] [place] [address] Concrete Layer: Lakhwinder Tim MD Abs.Neutrophil (Seg) 6.88 k/uL Normal 1.50-8.10 [facility] Comment on above: Performed By: #### C P, LIP, CDP #### Lab [address] [place] [address] Dr. [place], [place] [id number] Concrete Layer: Lakhwinder Tim MD Basophils/100 WBC (Bld) 0 % Normal 0-2 [facility] Comment on above: Performed By: #### C P, LIP, CDP #### [address] [place], [place] 25[address] Concrete Layer: Lakhwinder Tim MD Eosinophils/100 WBC (Bld) 0 % Low 1-4 [facility] Comment on above: Performed By: #### C P, LIP, CDP #### [address] [place] [id number] Concrete Layer: Lakhwinder Tim MD Erythrocyte distribution width (RBC) [Ratio] 13.8 % Normal 11.8-14.4 [facility] Comment on above: Performed By: #### C P, LIP, CDP #### [address] [place] [id number] Concrete Layer: Lakhwinder Tim MD Hematocrit (Bld) [Volume fraction] 36.3 % Normal 36.3-47.1 [facility] Comment on above: Performed By: #### C P, LIP, CDP #### [address] [place] [id number] Concrete Layer: Lakhwinder Tim MD Hemoglobin (Bld) [Mass/Vol] 11.7 g/dL Low 11.9-15.1 [facility] Comment on above: Performed By: #### C P, LIP, CDP #### [address] [place] [id number] Concrete Layer: Lakhiwnder Tim MD Immature granulocytes/100 WBC (Bld) 0 % Normal 0 [facility] Comment on above: Performed By: #### C P, LIP, CDP #### [address] [place] [id number] Concrete Layer: Lakhwinder Tim MD Lymphocytes (Bld) [#/Vol] 1.52 10*3/uL Normal 1.10-3.70 [facility] Comment on above: Performed By: #### C P, LIP, CDP #### [address] [place], [place] [id number] Concrete Layer: Lakhwinder Tim MD Lymphocytes/100 WBC (Bld) 17 % Low 24-43 [facility] Comment on above: Performed By: #### C P, LIP, CDP #### [address] [place], [place] [id number] Concrete Layer: Lakhwinder Tim MD MCH (RBC) [Entitic mass] 28.1 pg Normal 25.2-33.5 [facility] Comment on above: Performed By: #### C P, LIP, CDP #### [address] [place], [place] [id number] Concrete Layer: Lakhwinder Tim MD MCHC (RBC) [Mass/Vol] 32.2 g/dL Normal 28.4-34.8 [facility] Comment on above: Performed By: #### C P, LIP, CDP #### [address] [place], [place] [id number] Concrete Layer: Lakhwinder Tim MD MCV (RBC) [Entitic vol] 87.3 fL Normal 82.6-102.9 [facility] Comment on above: Performed By: #### C P, LIP, CDP #### [address] [place], [place] [id number] Concrete Layer: Lakhwinder Tim MD Monocytes (Bld) [#/Vol] 0.66 10*3/uL Normal 0.10-1.20 [facility] Comment on above: Performed By: #### C P, LIP, CDP #### [address] [place], [place] [id number] Concrete Layer: Lakhwinder Tim MD Monocytes/100 WBC (Bld) 7 % Normal 3-12 [facility] Comment on above: Performed By: #### C P, LIP, CDP #### Lab [address] [place] [address] Concrete Layer: Lakhwinder Tim MD Neutrophil (Seg) 76 % High 36-65 [facility] Comment on above: Performed By: #### C P, LIP, CDP #### Lab [address] [place], [facility]83 Concrete Layer: Lakhwinder Tim MD NRBC Automated 0.0 per 100 WBC Normal 0.0 [facility] Comment on above: Performed By: #### C P, LIP, CDP #### Lab [address] [place], [facility]83 Concrete Layer: Lakhwinder Tim MD Platelet mean volume (Bld) [Entitic vol] 10.5 fL Normal 8.1-13.5 [facility] Comment on above: Performed By: #### C P, LIP, CDP #### [facility] [address] [place] [address] Concrete Layer: Lakhwinder Tim MD Platelets (Bld) [#/Vol] 192 10*3/uL Normal 138-453 [facility] Comment on above: Performed By: #### C P, LIP, CDP #### Lab [address] [place], [place] [address] Concrete Layer: Lakhwinder Tim MD RBC (Bld) [#/Vol] 4.16 10*6/uL Normal 3.95-5.11 [facility] Comment on above: Performed By: #### C P, LIP, CDP #### [facility] [address] [place], [place] [id number] Concrete Layer: Lakhwinder Tim MD WBC (Bld) [#/Vol] 9.1 10*3/uL Normal 3.5-11.3 [facility] Comment on above: Performed By: #### C P, LIP, CDP #### Lab [address] [place] [address] Concrete Layer: Lakhwinder Tim MD CT ABDOMEN PELVIS W [...] MD 04/10/24 Edited Result - FINAL Normal [facility] CT Abdomen and Pelvis W tomasa Beltre 04-10-2024 1. New pneumoperiton eum consistent with [...] ELA Laird at 8:04 p.m. on 04/10/2024. [facility] RIS CONSOLIDATED EXAMINATION: CT OF THE [...] ELA Laird at 8:04 p.m. on 04/10/2024. [facility] Radiology Study observation (narrative) [facility] CT Abdomen and Pelvis W cont rast IVOrdered By: Esther Coates on 04-10-2024 [facility] Work Phone: Lactic Acidon 04-10-2024 Lactate (BldV) [Moles/Vol] 0.6 mmol/L 0.5 - 2.2 mmol/L [facility] Lactate [Moles/Vol] 0.6 mmol/L Normal 0.5-2.2 [facility] Comment on above: Performed By: #### C P, LIP, CDP #### Lab [address] [place] [address] Concrete Layer: Lakhwinder Tim MD Microscopic Urinalysison Epithelial cells LM.HPF (Urine sed) [#/Area] 0 TO 2 [facility] Interpretation and review of laboratory results Abnormal [facility] Mucus Ql (Urine sed) TRACE Abnormal None [facility] RBC LM.HPF (Urine sed) [#/Area] 0 TO 2 [facility] WBC LM.HPF (Urine sed) [#/Area] 0 TO 2 [facility] UA w/Reflex Cultureon 2023 Bilirubin, SemiQt,Ur Negative Normal NEG [facility] Comment on above: Performed By: #### C P, LIP, CDP #### Lab [address] [place] [address] Concrete Layer: Lakhwinder Tim MD Blood, Urine TRACE Abnormal NEG [facility] Comment on above: Performed By: #### C P, LIP, CDP #### Lab [address] [place] [address] Dr. [place], [place] [id number] Concrete Layer: Lakhwinder Tim MD Clarity (U) Clear Normal CLEAR [facility] Comment on above: Performed By: #### C P, LIP, CDP #### Lab [address] [place], [place] [id number] Concrete Layer: Lakhwinder Tim MD Color (U) Yellow Normal YEL [facility] Comment on above: Performed By: #### C P, LIP, CDP #### [address] [place] [address] Concrete Layer: Lakhwinder Tim MD Glucose Ql (U) Negative Normal NEG [facility] in [facility] Comment on above: Performed By: #### C P, LIP, CDP #### Lab [address] [place] [address] Dr. [place], [place] [id number] Concrete Layer: Lakhwinder Tim MD Ketones Ql (U) Negative Normal NEG [facility] Comment on above: Performed By: #### C P, LIP, CDP #### [address] [place] [address] Concrete Layer: Lakhwinder Tim MD Leukocyte esterase Test strip Ql (U) Negative Normal NEG [facility] Comment on above: Performed By: #### C P, LIP, CDP #### Lab [address] [place] [address] Dr. [place], [place] [id number] Concrete Layer: Lakhwinder Tim MD Nitrite,Ur Negative Normal [facility] Comment on above: Performed By: #### C P, LIP, CDP #### Lab [address] [place] [address] [place] [address] Concrete Layer: Lakhwinder Tim MD PH,Ur 6.0 Normal 5.0-9.0 [facility] Comment on above: Performed By: #### C P, LIP, CDP #### Lab [address] [place], [place] [id number] Concrete Layer: Lakhwinder Tim MD Protein Ql (U) Negative Normal NEG [facility] Comment on above: Performed By: #### C P, LIP, CDP #### Lab [address] [place], [place] [id number] Concrete Layer: Lakhwinder Tim MD Spec. [place],Ur 1.020 Normal 1.010-1.020 [facility] Comment on above: Performed By: #### C P, LIP, CDP #### Lab [address] [place], [place] [id number] Concrete Layer: Lakhwinder Tim MD Urobilinogen,Ur Normal Normal 0.0-1.0 [facility] Comment on above: Performed By: #### C P, LIP, CDP #### Lab [address] [place], [place] [id number] Concrete Layer: Lakhwinder Tim MD US NON OB TRANSVAGINAL [...] Arlette Steiner MD 04/10/24 Final result Normal [facility] US Pelvis transvaginalon Normal Doppler flow to the ovaries. The right ovary is not as enlarged when compared with the ultrasound from yesterday. [facility] CONSOLIDATED EXAMINATION: PELVIC ULTRASOUND 04/10/2024 TECHNIQUE: [...] venous Doppler flow. Free Fluid: None seen. [facility] CONSOLIDATED Arlette Steiner MD - 04/10/2024 [...] when compared with the ultrasound from yesterday. [facility] [email or web address] Radiology Study observation (narrative) [facility] US Pelvis transvaginalOrdere d By: Arlette Steiner on 04-10-2024 [facility] [email or web address] Work Phone: Urinalysis with Reflex to Cu ltureon 04-10-2024 Bilirubin Ql (U) Negative NEGATIVE [facility] [employer] Clarity (U) Clear Clear [facility] Color (U) Yellow Yellow [facility] Glucose Test strip (U) [Mass/Vol] Negative NEGATIVE mg/dL [facility] Hemoglobin Auto test strip Ql (U) TRACE Abnormal NEGATIVE [facility] Interpretation and review of laboratory results Abnormal [facility] Ketones (U) [Mass/Vol] Negative NEGATIVE mg/dL [facility] Leukocyte esterase Test strip Ql (U) Negative NEGATIVE [facility] Nitrite Ql (U) Negative NEGATIVE [facility] pH (U) 6.0 [pH] 5.0 - 9.0 [facility] Protein (U) [Mass/Vol] Negative NEGATIVE mg/dL [facility] Specific gravity (U) [Rel density] 1.020 1.010 - 1.020 [facility] Urobilinogen Qn (U) Normal 0.0 - 1. 0 EU/dL [facility] Urinalysis,Microon 4 Epithelial cells LM Ql (Urine sed) 0 TO 2 Normal 0-25 [facility] Comment on above: Performed By: #### C P, LIP, CDP #### Lab [address] [place] [address] Concrete Layer: Lakhwinder Tim MD Mucus Strands TRACE Abnormal NONE [facility] Comment on above: Performed By: #### C P, LIP, CDP #### Lab [address] [place] [id number] Concrete Layer: Lakhwinder Tim MD Urine RBC's 0 TO 2 Normal 0-2 [facility] Comment on above: Performed By: #### C P, LIP, CDP #### Lab [address] [place] [address] Concrete Layer: Lakhwinder Tim MD Urine WBC's 0 TO 2 Normal 0-5 [facility] Comment on above: Performed By: #### C P, LIP, CDP #### Lab [address] [place] [id number] Concrete Layer: Lakhwinder Tim MD Basic Metabolic Panelon 10-2 Anion gap [Moles/Vol] 8 mmol/L Low 9 - 16 mmol/L [facility] Calcium [Mass/Vol] 9.0 mg/dL 8.6 - 10. 4 mg/dL [facility] Chloride [Moles/Vol] 105 mmol/L 98 - 10 7 mmol/L [facility] CO2 [Moles/Vol] 27 mmol/L 20 - 31 mmol/L [facility] Creatinine [Mass/Vol] 0.5 mg/dL 0.50 - 0.90 mg/dL [facility] Est, Glom Filt Rate - PINF Fort [...] 73 mg/dL Low 74 - 99 mg/dL [facility] Interpretation and review of laboratory results Abnormal [facility] Potassium [Moles/Vol] 4.1 mmol/L 3.7 - 5.3 mmol/L [facility] Sodium [Moles/Vol] 140 mmol/L 136 - 145 mmol/L [facility] Urea nitrogen [Mass/Vol] 8 mg/dL 6 - 20 mg/dL [facility] Urea nitrogen/Creatinine [Mass ratio] 16 mg/mg 9 - 20 [facility] Basic Metabolic Profon 04-09 Anion gap [Moles/Vol] 8 mmol/L Low 9-16 [facility] Comment on above: Performed By: #### C PTOM, CDP #### Lab [address] [place] [id number] Concrete Layer: Lakhwinder Tim MD BUN/CRE Ratio 16 Normal 9-20 [facility] Comment on above: Performed By: #### C P, LIP, CDP #### Lab [address] [place], [place] [id number] Concrete Layer: Lakhwinder Tim MD Calcium [Mass/Vol] 9.0 mg/dL Normal 8.6-10.4 [facility] Comment on above: Performed By: #### C P, LIP, CDP #### Lab [address] [place], [place] [id number] Concrete Layer: Lakhwinder Tim MD Chloride [Moles/Vol] 105 mmol/L Normal 98-107 [facility] Comment on above: Performed By: #### C P, LIP, CDP #### Lab [address] [place], [place] [id number] Concrete Layer: Lakhwinder Tim MD CO2 [Moles/Vol] 27 mmol/L Normal 20-31 [facility] Comment on above: Performed By: #### C P, LIP, CDP #### Lab [address] [place], [place] [id number] Concrete Layer: Lakhwinder Tim MD Creatinine [Mass/Vol] 0.5 mg/dL Normal 0.50-0.90 [facility] Comment on above: Performed By: #### C P, LIP, CDP #### [facility] [address] [place], [place] [id number] Concrete Layer: Lakhwinder Tim MD GFR/1.73 sq M.predicted among non-blacks MDRD (S/P/Bld) [Vol rate/Area] mL/min/{1.73_m2} Normal >60 [facility] Comment on above: Result Comment: These results [...] By: #### C P, LIP, CDP #### Lab [address] [place], [place] [id number] Concrete Layer: Lakhwinder Tim MD Glucose [Mass/Vol] 73 mg/dL Low 74-99 [facility] Comment on above: Performed By: #### C P, LIP, CDP #### Lab [address] [place], [place] [id number] Concrete Layer: Lakhwinder Tim MD Potassium [Moles/Vol] 4.1 mmol/L Normal 3.7-5.3 [facility] Comment on above: Performed By: #### C P, LIP, CDP #### Lab [address] [place], [place] [id number] Concrete Layer: Lakhwinder Tim MD Sodium [Moles/Vol] 140 mmol/L Normal 136-145 [facility] Comment on above: Performed By: #### C P, LIP, CDP #### Lab [address] [place], [place] [id number] Concrete Layer: Lakhwinder Tim MD Urea nitrogen [Mass/Vol] 8 mg/dL Normal 6-20 [facility] Comment on above: Performed By: #### C P, LIP, CDP #### Lab [address] [place], [place] [id number] Concrete Layer: Lakhwinder Tim MD CBC with Auto Differentialon 04-09-2024 Basophils (Bld) [#/Vol] 0.03 10*3/uL [facility] Basophils/100 WBC (Bld) 1 % 0 - 2 % [facility] Eosinophils (Bld) [#/Vol] 0.07 10*3/uL [facility] Eosinophils/100 WBC (Bld) 1 % 1 - 4 % [facility] Erythrocyte distribution width (RBC) [Ratio] 13.5 % 11.8 - 14.4 % [facility] Hematocrit (Bld) [Volume fraction] 36.7 % 36.3 - 47.1 % [facility] Hemoglobin (Bld) [Mass/Vol] 11.7 g/dL Low 11.9 - 15.1 g/dL [facility] Immature granulocytes (Bld) [#/Vol] [facility] Immature granulocytes/100 WBC (Bld) 0 % 0 [facility] Interpretation and review of laboratory results Abnormal [facility] Lymphocytes/100 WBC (Bld) 38 % 24 - 43 % [facility] Lymphocytes/100 WBC (Bld) 2.24 % [facility] MCH (RBC) [Entitic mass] 28.1 pg 25.2 - 33.5 pg [facility] MCHC (RBC) [Mass/Vol] 31.9 g/dL 28.4 - 34.8 g/dL [facility] MCV (RBC) [Entitic vol] 88.2 fL 82.6 - 102.9 fL [facility] Monocytes/100 WBC (Bld) 7 % 3 - 12 % [facility] Monocytes/100 WBC (Bld) 0.40 % [facility] Neutrophils/100 WBC (Bld) 53 % 36 - 65 % [facility] Nucleated RBC/100 WBC (Bld) [Ratio] 0.0 % 0.0 per 100 WBC [facility] Platelet mean volume (Bld) [Entitic vol] 10.1 fL 8.1 - 13.5 fL [facility] Platelets (Bld) [#/Vol] 188 10*3/uL [facility] RBC (Bld) [#/Vol] 4.16 10*6/uL 3.95 - 5.1 1 m/uL [facility] Segmented neutrophils/100 WBC (Bld) 3.21 % [facility] WBC other (Bld) [#/Vol] 6.0 [facility] CBC with Diffon 04-09-2024 Abs. Basophil 0.03 k/uL Normal 0.00-0.20 [facility] Comment on above: Performed By: #### C P, LIP, CDP #### [facility] [address] [place], [facility]83 Concrete Layer: Lakhwinder Tim MD Abs.Imm.Granulocyte <0.03 Normal 0.00-0.30 [facility] Comment on above: Performed By: #### C P, LIP, CDP #### [address] [place] [id number] Concrete Layer: Lakhwinder Tim MD Abs.Neutrophil (Seg) 3.21 k/uL Normal 1.50-8.10 [facility] Comment on above: Performed By: #### C P, LIP, CDP #### [address] [place] [address] Concrete Layer: Lakhwinder Tim MD Basophils/100 WBC (Bld) 1 % Normal 0-2 [facility] Comment on above: Performed By: #### C P, LIP, CDP #### [address] [place], [place] [address] Concrete Layer: Lakhwinder Tim MD Eosinophils (Bld) [#/Vol] 0.07 10*3/uL Normal 0.00-0.44 [facility] Comment on above: Performed By: #### C P, LIP, CDP #### [address] [place], [facility]83 Concrete Layer: Lakhwinder Tim MD Eosinophils/100 WBC (Bld) 1 % Normal 1-4 [facility] Comment on above: Performed By: #### C P, LIP, CDP #### [address] [place], [facility]83 Concrete Layer: Lakhwinder Tim MD Erythrocyte distribution width (RBC) [Ratio] 13.5 % Normal 11.8-14.4 [facility] Comment on above: Performed By: #### C P, LIP, CDP #### [address] [place] [id number] Concrete Layer: Lakhwinder Tim MD Hematocrit (Bld) [Volume fraction] 36.7 % Normal 36.3-47.1 [facility] Comment on above: Performed By: #### C P, LIP, CDP #### Lab [address] [place], [place] [id number] Concrete Layer: Lakhwinder Tim MD Hemoglobin (Bld) [Mass/Vol] 11.7 g/dL Low 11.9-15.1 [facility] Comment on above: Performed By: #### C P, LIP, CDP #### [facility] [address] [place], [place] [id number] Concrete Layer: Lakhwinder Tim MD Immature granulocytes/100 WBC (Bld) 0 % Normal 0 [facility] Comment on above: Performed By: #### C P, LIP, CDP #### [address] [place], [place] [id number] Concrete Layer: Lakhwinder Tim MD Lymphocytes (Bld) [#/Vol] 2.24 10*3/uL Normal 1.10-3.70 [facility] Comment on above: Performed By: #### C P, LIP, CDP #### [address] [place], [place] [id number] Concrete Layer: Lakhwinder Tim MD Lymphocytes/100 WBC (Bld) 38 % Normal 24-43 [facility] Comment on above: Performed By: #### C P, LIP, CDP #### [facility] [address] [place], [place] [id number] Concrete Layer: Lakhwinder Tim MD MCH (RBC) [Entitic mass] 28.1 pg Normal 25.2-33.5 [facility] Comment on above: Performed By: #### C P, LIP, CDP #### [facility] [address] [place], [place] [id number] Concrete Layer: Lakhwinder Tim MD MCHC (RBC) [Mass/Vol] 31.9 g/dL Normal 28.4-34.8 [facility] Comment on above: Performed By: #### C P, LIP, CDP #### [address] [place], [place] [id number] Concrete Layer: Lakhwinder Tim MD MCV (RBC) [Entitic vol] 88.2 fL Normal 82.6-102.9 [facility] Comment on above: Performed By: #### C P, LIP, CDP #### [address] [place], [facility]83 Concrete Layer: Lakhwinder Tmi MD Monocytes (Bld) [#/Vol] 0.40 10*3/uL Normal 0.10-1.20 [facility] Comment on above: Performed By: #### C P, LIP, CDP #### [address] [place], [place] [address] Concrete Layer: Lakhwinder Tim MD Monocytes/100 WBC (Bld) 7 % Normal 3-12 [facility] Comment on above: Performed By: #### C P LIP, CDP #### [address] [place], [facility]83 Concrete Layer: Lakhwinder Tim MD Neutrophil (Seg) 53 % Normal 36-65 [facility] Comment on above: Performed By: #### C P, LIP, CDP #### [address] [place], [facility]83 Concrete Layer: Lakhwinder Tim MD NRBC Automated 0.0 per 100 WBC Normal 0.0 [facility] Comment on above: Performed By: #### C P, LIP, CDP #### [address] [place], [facility]83 Concrete Layer: Lakhwinder Tim MD Platelet mean volume (Bld) [Entitic vol] 10.1 fL Normal 8.1-13.5 [facility] Comment on above: Performed By: #### C P, LIP, CDP #### Lab [address] [place], [place] [id number] Concrete Layer: Lakhwinder Tim MD Platelets (Bld) [#/Vol] 188 10*3/uL Normal 138-453 [facility] Comment on above: Performed By: #### C P, LIP, CDP #### [facility] [address] [place], [facility]83 Concrete Layer: Lakhwinder Tim MD RBC (Bld) [#/Vol] 4.16 10*6/uL Normal 3.95-5.11 [facility] Comment on above: Performed By: #### C P, LIP, CDP #### [facility] [address] [place], [facility]83 Concrete Layer: Lakhwinder Tim MD WBC (Bld) [#/Vol] 6.0 10*3/uL Normal 3.5-11.3 [facility] Comment on above: Performed By: #### C P, LIP, CDP #### [facility] [address] [place], [facility]83 Concrete Layer: Lakhwinder Tim MD Lactic Acidon 04-09-2024 Lactate (BldV) [Moles/Vol] 0.9 mmol/L 0.5 - 2.2 mmol/L [facility] Lactate [Moles/Vol] 0.9 mmol/L Normal 0.5-2.2 [facility] Comment on above: Performed By: #### C DP #### [facility] [address] [place], [facility]83 Concrete Layer: Lakhwinder Tim MD Microscopic Urinalysison Bacteria LM Ql (Urine sed) 1+ Abnormal None [facility] Epithelial cells LM.HPF (Urine sed) [#/Area] 2 TO 5 [facility] Interpretation and review of laboratory results Abnormal [facility] Mucus Ql (Urine sed) 1+ Abnormal None [facility] RBC LM.HPF (Urine sed) [#/Area] 0 TO 2 [facility] WBC LM.HPF (Urine sed) [#/Area] 0 TO 2 [facility] Bon [facility] UA w/Reflex Cultureon 2023 Bilirubin, SemiQt,Ur Negative Normal NEG [facility] Comment on above: Performed By: #### U MICAO, UAX #### [facility] [address] [place], [place] [id number] Concrete Layer: Lakhwinder Tim MD Blood, Urine Negative Normal NEG [facility] Comment on above: Performed By: #### U MICAO, UAX #### [address] [place], [place] [id number] Concrete Layer: Lakhwinder Tim MD Clarity (U) Clear Normal CLEAR [facility] Comment on above: Performed By: #### U MICAO, UAX #### Lab [address] [place] [address] Dr. [place], [place] [id number] Concrete Layer: Lakhwinder Tim MD Color (U) Yellow Normal YEL [facility] Comment on above: Performed By: #### U MICAO, UAX #### [facility] [address] [place] [address] Dr. [place], [place] [id number] Concrete Layer: Lakhwinder Tim MD Glucose Ql (U) Negative Normal NEG [facility] Comment on above: Performed By: #### U MICAO, UAX #### [facility] [address] [place], [place] [id number] Concrete Layer: Lakhwinder Tim MD Ketones Ql (U) Negative Normal NEG [facility] Comment on above: Performed By: #### U MICAO, UAX #### [facility] [address] [place] [address] Dr. [place], [place] [id number] Concrete Layer: Lakhwinder Tim MD Leukocyte esterase Test strip Ql (U) Negative Normal NEG [facility] Comment on above: Performed By: #### U MICAO, UAX #### [facility] [address] [place], [place] [id number] Concrete Layer: Lakhwinder Tim MD Nitrite,Ur Negative Normal NEG [facility] Comment on above: Performed By: #### U MICAO, UAX #### [facility] [address] [place], [place] [id number] Concrete Layer: Lakhwinder Tim MD PH,Ur 8.0 Normal 5.0-9.0 [facility] Comment on above: Performed By: #### U MICAO, UAX #### [facility] [address] [place], [place] [id number] Concrete Layer: Lakhwinder Tim MD Protein Ql (U) Negative Normal NEG [facility] Comment on above: Performed By: #### U MICAO, UAX #### [facility] [address] [place], [place] [id number] Concrete Layer: Lakhwinder Tim MD Spec. [place],Ur 1.020 Normal 1.010-1.020 [facility] Comment on above: Performed By: #### U MICAO, UAX #### [facility] [address] [place] [address] Dr. [place], [place] [id number] Concrete Layer: Lakhwinder Tim MD Urobilinogen,Ur Normal Normal 0.0-1.0 [facility] Comment on above: Performed By: #### U MICAO, UAX #### [facility] [address] [place] [address] Concrete Layer: Lakhwinder Tim MD US NON OB TRANSVAGINAL [...] Lexus Villegas MD 04/09/24 Final result Normal [facility] US Pelvis transvaginalon 1. No sonographic evidence of ovarian torsion. 2. The previously described complex right ovarian cystic lesion now appears to represent two adjacent simple cysts versus less likely a cystic lesion with a thickened internal septation. A separate 2.7 cm mildly heterogeneous area could represent hemorrhagic cyst. Consider 6-8 week pelvic ultrasound to assess change. 3. Prior hysterectomy. [facility] RIS CONSOLIDATED EXAMINATION: TRANSVAGINAL PELVIC ULTRASOUND WITH [...] Free Fluid: No evidence of free fluid. PN RIS Lexus Morley MD - 04/09/2024 EXAMINATION: [...] ultrasound to assess change. 3. Prior hysterectomy. [facility] Radiology Study observation (narrative) [facility] US Pelvis transvaginalOrdere d By: Lexus Villegas on 04-09-2024 [facility] Work Phone: Urinalysis with Reflex to Cu ltureon 04-09-2024 Bilirubin Ql (U) Negative NEGATIVE [facility] Clarity (U) Clear Clear [facility] Color (U) Yellow Yellow [facility] Glucose Test strip (U) [Mass/Vol] Negative NEGATIVE mg/dL [facility] Hemoglobin Auto test strip Ql (U) Negative NEGATIVE [facility] Ketones (U) [Mass/Vol] Negative NEGATIVE mg/dL [facility] Leukocyte esterase Test strip Ql (U) Negative NEGATIVE [facility] Nitrite Ql (U) Negative NEGATIVE [facility] pH (U) 8.0 [pH] 5.0 - 9.0 [facility] Protein (U) [Mass/Vol] Negative NEGATIVE mg/dL [facility] Specific gravity (U) [Rel density] 1.020 1.010 - 1.020 [facility] Urobilinogen Qn (U) Normal 0.0 - 1. 0 EU/dL [facility] Urinalysis,Microon 4 Bacteria 1+ Abnormal [facility] Comment on above: Performed By: #### U MICAO, UAX #### [facility] [address] [place] [id number] Concrete Layer: Lakhwinder Tim MD Epithelial cells LM Ql (Urine sed) 2 TO 5 Normal 0-25 [facility] Comment on above: Performed By: #### U MICAO, UAX #### [facility] [address] [place] [address] Concrete Layer: Lakhwinder Tim MD Mucus Strands 1+ Abnormal NONE [facility] Comment on above: Performed By: #### U MICAO, UAX #### [facility] [address] [place] [address] Concrete Layer: Lakhwinder Tim MD Urine RBC's 0 TO 2 Normal 0-2 [facility] Comment on above: Performed By: #### U KARINA, UAX #### [facility] [address] [place] [address] Concrete Layer: Lakhwinder Tim MD Urine WBC's 0 TO 2 Normal 0-5 [facility] Comment on above: Performed By: #### U KARINA, UAX #### [facility] [address] [place] [address] Concrete Layer: Lakhwinder Tim MD CBC with Auto Differentialon 04-02-2024 Basophils (Bld) [#/Vol] 0.04 10*3/uL [facility] Basophils/100 WBC (Bld) 1 % 0 - 2 % [facility] Eosinophils (Bld) [#/Vol] 0.07 10*3/uL [facility] Eosinophils/100 WBC (Bld) 2 % 1 - 4 % [facility] Erythrocyte distribution width (RBC) [Ratio] 13.7 % 11.8 - 14.4 % [facility] Hematocrit (Bld) [Volume fraction] 40.3 % 36.3 - 47.1 % [facility] Hemoglobin (Bld) [Mass/Vol] 12.9 g/dL 11.9 - 15.1 g/dL [facility] Immature granulocytes (Bld) [#/Vol] [facility] Immature granulocytes/100 WBC (Bld) 0 % 0 [facility] Lymphocytes/100 WBC (Bld) 38 % 24 - 43 % [facility] Lymphocytes/100 WBC (Bld) 1.81 % [facility] MCH (RBC) [Entitic mass] 27.9 pg 25.2 - 33.5 pg [facility] MCHC (RBC) [Mass/Vol] 32.0 g/dL 28.4 - 34.8 g/dL [facility] MCV (RBC) [Entitic vol] 87.0 fL 82.6 - 102.9 fL [facility] Monocytes/100 WBC (Bld) 6 % 3 - 12 % [facility] Monocytes/100 WBC (Bld) 0.27 % [facility] Neutrophils/100 WBC (Bld) 53 % 36 - 65 % [facility] Nucleated RBC/100 WBC (Bld) [Ratio] 0.0 % 0.0 per 100 WBC [facility] Platelet mean volume (Bld) [Entitic vol] 9.9 fL 8.1 - 13.5 fL [facility] Platelets (Bld) [#/Vol] 259 10*3/uL [facility] RBC (Bld) [#/Vol] 4.63 10*6/uL 3.95 - 5.1 1 m/uL [facility] Segmented neutrophils/100 WBC (Bld) 2.58 % [facility] WBC other (Bld) [#/Vol] 4.8 [facility] CBC with Diffon 04-02-2024 Abs. Basophil 0.04 k/uL Normal 0.00-0.20 [facility] Comment on above: Performed By: #### C DP #### [facility] [address] [place] [id number] Concrete Layer: Lakhwinder Tim MD Abs.Imm.Granulocyte <0.03 Normal 0.00-0.30 [facility] Comment on above: Performed By: #### C DP #### [facility] [address] [place] [id number] Concrete Layer: Lakhwinder Tim MD Abs.Neutrophil (Seg) 2.58 k/uL Normal 1.50-8.10 [facility] Comment on above: Performed By: #### C DP #### [facility] [address] [place], [place] [id number] Concrete Layer: Lakhwinder Tim MD Basophils/100 WBC (Bld) 1 % Normal 0-2 [facility] Comment on above: Performed By: #### C DP #### [facility] [address] [place] [id number] Concrete Layer: Lakhwindre Tim MD Eosinophils (Bld) [#/Vol] 0.07 10*3/uL Normal 0.00-0.44 [facility] Comment on above: Performed By: #### C DP #### [facility] [address] [place], [place] [id number] Concrete Layer: Lakhwinder Tim MD Eosinophils/100 WBC (Bld) 2 % Normal 1-4 [facility] Comment on above: Performed By: #### C DP #### [facility] [address] [place], [place] [id number] Concrete Layer: Lakhwinder Tim MD Erythrocyte distribution width (RBC) [Ratio] 13.7 % Normal 11.8-14.4 [facility] Comment on above: Performed By: #### C DP #### [address] [place] [id number] Concrete Layer: Lakhwinder Tim MD Hematocrit (Bld) [Volume fraction] 40.3 % Normal 36.3-47.1 [facility] Comment on above: Performed By: #### C DP #### [address] [place], [facility]83 Concrete Layer: Lakhwinder Tim MD Hemoglobin (Bld) [Mass/Vol] 12.9 g/dL Normal 11.9-15.1 [facility] Comment on above: Performed By: #### C DP #### [address] [place], [facility]83 Concrete Layer: Lakhwinder Tim MD Immature granulocytes/100 WBC (Bld) 0 % Normal 0 [facility] Comment on above: Performed By: #### C DP #### [address] [place], [place] [id number] Concrete Layer: Lakhwinder Tim MD Lymphocytes (Bld) [#/Vol] 1.81 10*3/uL Normal 1.10-3.70 [facility] Comment on above: Performed By: #### C DP #### [facility] [address] [place], [place] [id number] Concrete Layer: Lakhwinder Tim MD Lymphocytes/100 WBC (Bld) 38 % Normal 24-43 [facility] Comment on above: Performed By: #### C DP #### [facility] [address] [place], [facility]83 Concrete Layer: Lakhwinder Tim MD MCH (RBC) [Entitic mass] 27.9 pg Normal 25.2-33.5 [facility] Comment on above: Performed By: #### C DP #### [address] [place], [facility]83 Concrete Layer: Lakhwinder Tim MD MCHC (RBC) [Mass/Vol] 32.0 g/dL Normal 28.4-34.8 [facility] Comment on above: Performed By: #### C DP #### [address] [place], [facility]83 Concrete Layer: Lakhwinder Tim MD MCV (RBC) [Entitic vol] 87.0 fL Normal 82.6-102.9 [facility] Comment on above: Performed By: #### C DP #### [address] [place], [facility] Concrete Layer: Lakhwinder Tim MD Monocytes (Bld) [#/Vol] 0.27 10*3/uL Normal 0.10-1.20 [facility] Comment on above: Performed By: #### C DP #### [facility] [address] [place], [facility] Concrete Layer: Lakhwinder Tim MD Monocytes/100 WBC (Bld) 6 % Normal 3-12 [facility] Comment on above: Performed By: #### C DP #### [facility] [address] [place], [facility] Concrete Layer: Lakhwinder Tim MD Neutrophil (Seg) 53 % Normal 36-65 [facility] Comment on above: Performed By: #### C DP #### [facility] [address] [place], [place] [id number] Concrete Layer: Lakhwinder iTm MD NRBC Automated 0.0 per 100 WBC Normal 0.0 [facility] Comment on above: Performed By: #### C DP #### [facility] [address] [place], [place] [id number] Concrete Layer: Lakhwinder Tim MD Platelet mean volume (Bld) [Entitic vol] 9.9 fL Normal 8.1-13.5 [facility] Comment on above: Performed By: #### C DP #### [address] [place], [place] [id number] Concrete Layer: Lakhwinder Tim MD Platelets (Bld) [#/Vol] 259 10*3/uL Normal 138-453 [facility] Comment on above: Performed By: #### C DP #### [address] [place], [place] [id number] Concrete Layer: Lakhwinder Tim MD RBC (Bld) [#/Vol] 4.63 10*6/uL Normal 3.95-5.11 [facility] Comment on above: Performed By: #### C DP #### Lab [address] [place] [address] [place] [id number] Concrete Layer: Lakhwinder Tim MD WBC (Bld) [#/Vol] 4.8 10*3/uL Normal 3.5-11.3 [facility] Comment on above: Performed By: #### C DP #### [address] [place], [place] [id number] Concrete Layer: Lakhwinder Tim MD CT ABDOMEN PELVIS W [...] Opal Henry MD 04/02/24 Final result Normal [facility] Comp Metabolic Profon 2023 Albumin [Mass/Vol] 4.7 g/dL Normal 3.5-5.2 [facility] Comment on above: Performed By: #### KALLIE KAURX #### [facility] [address] [place] [address] Concrete Layer: Lakhwinder Tim MD Albumin/Glob Ratio 1.6 Normal 1.0-2.5 [facility] Comment on above: Performed By: #### KALLIE KAURX #### [facility] [address] [place] [address] Concrete Layer: Lakhwinder Tim MD Alkaline Phos 60 U/L Normal 35-104 [facility] Comment on above: Performed By: #### U MICAO, UAX #### [facility] [address] [place], [place] [id number] Concrete Layer: Lakhwinder Tim MD ALT [Catalytic activity/Vol] 9 U/L Low -35 [facility] Comment on above: Performed By: #### U MICAO, UAX #### [facility] [address] [place], [place] [id number] Concrete Layer: Lakhwinder Tim MD Anion gap [Moles/Vol] 9 mmol/L Normal 9-16 [facility] Comment on above: Performed By: #### U MICAO, UAX #### [address] [place], [place] [id number] Concrete Layer: Lakhwinder Tim MD AST [Catalytic activity/Vol] 16 U/L Normal [facility] Comment on above: Performed By: #### U MICAO, UAX #### Lab [address] [place] [address] Dr. [place], [place] [id number] Concrete Layer: Lakhwinder Tim MD Bilirubin [Mass/Vol] 0.3 mg/dL Normal 0.00-1.20 [facility] Comment on above: Performed By: #### U MICAO, UAX #### Lab [address] [place] [address] Dr. [place], [place] [id number] Concrete Layer: Lakhwinder Tim MD BUN/CRE Ratio 12 Normal -20 [facility] Comment on above: Performed By: #### U MICAO, UAX #### Lab [address] [place], [place] [id number] Concrete Layer: Lakhwinder Tim MD Calcium [Mass/Vol] 9.4 mg/dL Normal 8.6-10.4 [facility] Comment on above: Performed By: #### U MICAO, UAX #### Lab [address] [place] [address] Concrete Layer: Lakhwinder Tim MD Chloride [Moles/Vol] 104 mmol/L Normal 98-107 [facility] Comment on above: Performed By: #### U KARINA, UAX #### Lab [address] [place] [address] Concrete Layer: Lakhwinder Tim MD CO2 [Moles/Vol] 26 mmol/L Normal 20-31 [facility] Comment on above: Performed By: #### U OSMINO, UAX #### Lab [address] [place] [address] Concrete Layer: Lakhwinder Tim MD Creatinine [Mass/Vol] 0.5 mg/dL Normal 0.50-0.90 [facility] Comment on above: Performed By: #### U KARINA, UAX #### Lab [address] [place] [address] Concrete Layer: Lakhwinder Tim MD GFR/1.73 sq M.predicted among non-blacks MDRD (S/P/Bld) [Vol rate/Area] mL/min/{1.73_m2} Normal >60 [facility] Comment on above: Result Comment: These results [...] Performed By: #### U OSMINO, UAX #### Lab [address] [place] [address] Concrete Layer: Lakhwinder Tim MD Glucose [Mass/Vol] 88 mg/dL Normal 74-99 [facility] Comment on above: Performed By: #### U OSMINO, UAX #### Lab [address] [place] [address] Concrete Layer: Lakhwinder Tim MD Potassium [Moles/Vol] 3.7 mmol/L Normal 3.7-5.3 [facility] Comment on above: Performed By: #### U OSMINO, UAX #### Lab [address] [place] [address] Concrete Layer: Lakhwinder Tim MD Protein [Mass/Vol] 7.8 g/dL Normal 6.6-8.7 [facility] Comment on above: Performed By: #### U OSMINO, UAX #### Lab [address] [place] [address] Concrete Layer: Lakhwinder Tim MD Sodium [Moles/Vol] 139 mmol/L Normal 136-145 [facility] Comment on above: Performed By: #### U KARINA, UAX #### Lab [address] [place] [address] Concrete Layer: Lakhwinder Tim MD Urea nitrogen [Mass/Vol] 6 mg/dL Normal 6-20 [facility] Comment on above: Performed By: #### U KARINA, UAX #### Lab [address] [place] [address] Concrete Layer: Lakhwinder Tim MD Comprehensive Metabolic [facility] 04-02-2024 Albumin [Mass/Vol] 4.7 g/dL 3.5 - 5.2 g/dL [facility] Albumin/Globulin [Mass ratio] 1.6 {ratio} 1.0 - 2.5 [facility] ALP [Catalytic activity/Vol] 60 U/L 35 - 104 U/L [facility] ALT [Catalytic activity/Vol] 9 U/L Low 10 - 35 U/L [facility] Anion gap [Moles/Vol] 9 mmol/L 9 - 16 mmol/L [facility] AST [Catalytic activity/Vol] 16 U/L 10 - 35 U/L [facility] Bilirubin [Mass/Vol] 0.3 mg/dL 0.00 - 1.20 mg/dL [facility] Calcium [Mass/Vol] 9.4 mg/dL 8.6 - 10. 4 mg/dL [facility] Chloride [Moles/Vol] 104 mmol/L 98 - 10 7 mmol/L [facility] CO2 [Moles/Vol] 26 mmol/L 20 - 31 mmol/L [facility] Creatinine [Mass/Vol] 0.5 mg/dL 0.50 - 0.90 mg/dL [facility] Est, Love [place] Rate - PINF [place] [...] [Mass/Vol] 88 mg/dL 74 - 99 mg/dL [facility] Interpretation and review of laboratory results Abnormal [facility] Potassium [Moles/Vol] 3.7 mmol/L 3.7 - 5.3 mmol/L [facility] Protein [Mass/Vol] 7.8 g/dL 6.6 - 8.7 g/dL [facility] Sodium [Moles/Vol] 139 mmol/L 136 - 145 mmol/L [facility] Urea nitrogen [Mass/Vol] 6 mg/dL 6 - 20 mg/dL [facility] Urea nitrogen/Creatinine [Mass ratio] 12 mg/mg 9 - 20 [facility] Lactic Acidon 04-02-2024 Lactate [Moles/Vol] 1.4 mmol/L Normal 0.5-2.2 [facility] Comment on above: Performed By: #### JERALD KAUR #### Lab [address] [place] [address] Concrete Layer: Lakhwinder Tim MD Lactate (BldV) [Moles/Vol] 1.4 mmol/L 0.5 - 2.2 mmol/L [facility] Microscopic Urinalysison Epithelial cells LM.HPF (Urine sed) [#/Area] 0 TO 2 [facility] RBC LM.HPF (Urine sed) [#/Area] 0 TO 2 [facility] WBC LM.HPF (Urine sed) [#/Area] 0 TO 2 [facility] UA w/Reflex Cultureon 2023 Bilirubin, SemiQt,Ur Negative Normal NEG [facility] Comment on above: Performed By: #### U MICAO, UAX #### Lab [address] [place] [address] Concrete Layer: Lakhwinder Tim MD Blood, Urine Negative Normal NEG [facility] Comment on above: Performed By: #### U MICAO, UAX #### Lab [address] [place] [id number] Concrete Layer: Lakhwinder Tim MD Clarity (U) Clear Normal CLEAR [facility] Comment on above: Performed By: #### U MICAO, UAX #### Lab [address] [place] [id number] Concrete Layer: Lakhwinder Tim MD Color (U) Yellow Normal YEL [facility] Comment on above: Performed By: #### U MICAO, UAX #### Lab [address] [place], [facility]83 Concrete Layer: Lakhwinder Tim MD Glucose Ql (U) Negative Normal NEG [facility] Comment on above: Performed By: #### U MICAO, UAX #### Lab [address] [place] [id number] Concrete Layer: Lakhwinder Tim MD Ketones Ql (U) Negative Normal NEG [facility] Comment on above: Performed By: #### U MICAO, UAX #### Lab [address] [place] [id number] Concrete Layer: Lakhwinder Tim MD Leukocyte esterase Test strip Ql (U) Negative Normal NEG [facility] Comment on above: Performed By: #### U MICAO, UAX #### Lab [address] [place], [place] [id number] Concrete Layer: Lakhwinder Tim MD Nitrite,Ur Negative Normal NEG [facility] Comment on above: Performed By: #### U MICAO, UAX #### Lab [address] [place], [place] [id number] Concrete Layer: Lakhwinder Tim MD PH,Ur 8.0 Normal 5.0-9.0 [facility] Comment on above: Performed By: #### U MICAO, UAX #### [address] [place]ell, [place] [id number] Concrete Layer: Lakhwinder Tim MD Protein Ql (U) Negative Normal NEG [facility] Comment on above: Performed By: #### U MICAO, UAX #### [address] [place], [place] [id number] Concrete Layer: Lakhwinder Tim MD Spec. [place],Ur 1.020 Normal 1.010-1.020 [facility] Comment on above: Performed By: #### U MICAO, UAX #### Lab [address] [place] [address] Dr. Rowell, [place] [id number] Concrete Layer: Lakhwinder Tim MD Urobilinogen,Ur Normal Normal 0.0-1.0 [facility] Comment on above: Performed By: #### U MICAO, UAX #### [address] [place] [address] Concrete Layer: Lakhwinder Tim MD US NON OB TRANSVAGINAL [...] Yasir Bertrand MD 04/02/24 Final result Normal [facility] US Pelvis transvaginalon 1. Patient status po st hysterectomy. 2. Unremarkable sonographic appearance of the left ovary, without evidence of torsion or mass. 3. No evidence of right ovarian torsion or solid mass. Persistent 3.5 cm complex cystic lesion with the right adnexa, most likely a benign ovarian hemorrhagic cyst, requiring no further follow-up given size of the lesion and patient's premenopausal status. [facility] RIS CONSOLIDATED EXAMINATION: TRANSVAGINAL PELVIC ULTRASOUND WITH [...] Free Fluid: No evidence of free fluid. [facility] CON[facility] Yasir Bertrand MD - 04/02/2024 [...] of the lesion and patient's premenopausal status. [facility] Radiology Study observation (narrative) [facility] US Pelvis transvaginalOrdere d By: Yasir Bertrand on 04-02-2024 [facility] Work Phone: Urinalysis with Reflex to Cu ltureon 04-02-2024 Bilirubin Ql (U) Negative NEGATIVE [facility] Clarity (U) Clear Clear [facility] Color (U) Yellow Yellow [facility] Glucose Test strip (U) [Mass/Vol] Negative NEGATIVE mg/dL [facility] Hemoglobin Auto test strip Ql (U) Negative NEGATIVE [facility] Ketones (U) [Mass/Vol] Negative NEGATIVE mg/dL [facility] Leukocyte esterase Test strip Ql (U) Negative NEGATIVE [facility] Nitrite Ql (U) Negative NEGATIVE [facility] pH (U) 8.0 [pH] 5.0 - 9.0 [facility] Protein (U) [Mass/Vol] Negative NEGATIVE mg/dL [facility] Specific gravity (U) [Rel density] 1.020 1.010 - 1.020 [facility] Urobilinogen Qn (U) Normal 0.0 - 1. 0 EU/dL [facility] Urinalysis,Microon 4 Epithelial cells LM Ql (Urine sed) 0 TO 2 Normal 0-25 [facility] Comment on above: Performed By: #### U JERALD COLLINS #### Lab [address] [place], [place] [id number] Concrete Layer: Lakhwinder Tim MD Urine RBC's 0 TO 2 Normal 0-2 [facility] Comment on above: Performed By: #### U MICAO, UAX #### Lab [address] [place] [address] Concrete Layer: Lakhwinder Tim MD Urine WBC's 0 TO 2 Normal 0-5 [facility] Comment on above: Performed By: #### U MICAO, UAX #### Lab [address] [place] [address] Concrete Layer: Lakhwinder Tim MD CBC with Diffon 03-17-2024 Basophils (Bld) [#/Vol] [facility] Basophils/100 WBC (Bld) 0 % 0 - 2 % [facility] Eosinophils (Bld) [#/Vol] 0.08 10*3/uL [facility] Eosinophils/100 WBC (Bld) 2 % 1 - 4 % [facility] Erythrocyte distribution width (RBC) [Ratio] 13.6 % 11.8 - 14.4 % [facility] Hematocrit (Bld) [Volume fraction] 35.9 % Low 36.3 - 47.1 % [facility] Hemoglobin (Bld) [Mass/Vol] 12.0 g/dL 11.9 - 15.1 g/dL [facility] Immature granulocytes (Bld) [#/Vol] [facility] Immature granulocytes/100 WBC (Bld) 0 % 0 [facility] Interpretation and review of laboratory results Abnormal [facility] Lymphocytes/100 WBC (Bld) 37 % 24 - 43 % [facility] Lymphocytes/100 WBC (Bld) 1.59 % [facility] MCH (RBC) [Entitic mass] 28.5 pg 25.2 - 33.5 pg [facility] MCHC (RBC) [Mass/Vol] 33.4 g/dL 28.4 - 34.8 g/dL [facility] MCV (RBC) [Entitic vol] 85.3 fL 82.6 - 102.9 fL [facility] Monocytes/100 WBC (Bld) 8 % 3 - 12 % [facility] Monocytes/100 WBC (Bld) 0.32 % [facility] Neutrophils/100 WBC (Bld) 53 % 36 - 65 % [facility] Nucleated RBC/100 WBC (Bld) [Ratio] 0.0 % 0.0 per 100 WBC [facility] Platelet mean volume (Bld) [Entitic vol] 10.6 fL 8.1 - 13.5 fL [facility] Platelets (Bld) [#/Vol] 202 10*3/uL [facility] RBC (Bld) [#/Vol] 4.21 10*6/uL 3.95 - 5.1 1 m/uL [facility] Segmented neutrophils/100 WBC (Bld) 2.26 % [facility] WBC other (Bld) [#/Vol] 4.3 [facility] Abs. Basophil <0.03 Normal 0.00-0.20 [facility] Comment on above: Performed By: #### C P, LIP, CDP #### [address] [place] [address] Concrete Layer: Lakhwinder Tim MD Abs.Imm.Granulocyte <0.03 Normal 0.00-0.30 [facility] Comment on above: Performed By: #### C P, LIP, CDP #### [address] [place] [id number] Concrete Layer: Lakhwinder Tim MD Abs.Neutrophil (Seg) 2.26 k/uL Normal 1.50-8.10 [facility] Comment on above: Performed By: #### C P, LIP, CDP #### [address] [place] [address] Concrete Layer: Lakhwinder Tim MD Basophils/100 WBC (Bld) 0 % Normal 0-2 [facility] Comment on above: Performed By: #### C P, LIP, CDP #### [address] [place], [place] [id number] Concrete Layer: Lakhwinder Tim MD Eosinophils (Bld) [#/Vol] 0.08 10*3/uL Normal 0.00-0.44 [facility] Comment on above: Performed By: #### C P, LIP, CDP #### [address] [place], [place] [address] Concrete Layer: Lakhwinder Tim MD Eosinophils/100 WBC (Bld) 2 % Normal 1-4 [facility] Comment on above: Performed By: #### C P, LIP, CDP #### [address] [place]ell, [facility]83 Concrete Layer: Lakhwinder Tim MD Erythrocyte distribution width (RBC) [Ratio] 13.6 % Normal 11.8-14.4 [facility] Comment on above: Performed By: #### C P, LIP, CDP #### [address] [place]ell, [facility]83 Concrete Layer: Lakhwinder Tim MD Hematocrit (Bld) [Volume fraction] 35.9 % Low 36.3-47.1 [facility] Comment on above: Performed By: #### C P, LIP, CDP #### [address] [place], [place] [address] Concrete Layer: Lakhwinder Tim MD Hemoglobin (Bld) [Mass/Vol] 12.0 g/dL Normal 11.9-15.1 [facility] Comment on above: Performed By: #### C P, LIP, CDP #### [address] [place]ell, [facility]83 Concrete Layer: Lakhwinder Tim MD Immature granulocytes/100 WBC (Bld) 0 % Normal 0 [facility] Comment on above: Performed By: #### C P, LIP, CDP #### Lab [address] [place], [place] [id number] Concrete Layer: Lakhwinder Tim MD Lymphocytes (Bld) [#/Vol] 1.59 10*3/uL Normal 1.10-3.70 [facility] Comment on above: Performed By: #### C P, LIP, CDP #### [facility] [address] [place], [facility]83 Concrete Layer: Lakhwinder Tim MD Lymphocytes/100 WBC (Bld) 37 % Normal 24-43 [facility] Comment on above: Performed By: #### C P, LIP, CDP #### [address] [place], [facility]83 Concrete Layer: Lakhwinder Tim MD MCH (RBC) [Entitic mass] 28.5 pg Normal 25.2-33.5 [facility] Comment on above: Performed By: #### C P, LIP, CDP #### [address] [place], [facility]83 Concrete Layer: Lakhwinder Tim MD MCHC (RBC) [Mass/Vol] 33.4 g/dL Normal 28.4-34.8 [facility] Comment on above: Performed By: #### C P, LIP, CDP #### [address] [place], [facility]83 Concrete Layer: Lakhwinder Tim MD MCV (RBC) [Entitic vol] 85.3 fL Normal 82.6-102.9 [facility] Comment on above: Performed By: #### C P, LIP, CDP #### [address] [place] [address] Concrete Layer: Lakhwinder Tim MD Monocytes (Bld) [#/Vol] 0.32 10*3/uL Normal 0.10-1.20 [facility] Comment on above: Performed By: #### C P, LIP, CDP #### Lab [address] [place], [place] [id number] Concrete Layer: Lakhwinder Tim MD Monocytes/100 WBC (Bld) 8 % Normal 3-12 [facility] Comment on above: Performed By: #### C P, LIP, CDP #### Lab [address] [place], [place] [id number] Concrete Layer: Lakhwinder Tim MD Neutrophil (Seg) 53 % Normal 36-65 [facility] Comment on above: Performed By: #### C P, LIP, CDP #### [facility] [address] [place], [place] [id number] Concrete Layer: Lakhwinder Tim MD NRBC Automated 0.0 per 100 WBC Normal 0.0 [facility] Comment on above: Performed By: #### C P, LIP, CDP #### [address] [place], [facility]83 Concrete Layer: Lakhwinder Tim MD Platelet mean volume (Bld) [Entitic vol] 10.6 fL Normal 8.1-13.5 [facility] Comment on above: Performed By: #### C P, LIP, CDP #### [address] [place], [place] [id number] Concrete Layer: Lakhwinder Tim MD Platelets (Bld) [#/Vol] 202 10*3/uL Normal 138-453 [facility] Comment on above: Performed By: #### C P, LIP, CDP #### [facility] [address] [place], [place] [id number] Concrete Layer: Lakhwinder Tim MD RBC (Bld) [#/Vol] 4.21 10*6/uL Normal 3.95-5.11 [facility] Comment on above: Performed By: #### C P, LIP, CDP #### Lab [address] [place], [place] [id number] Concrete Layer: Lakhwinder Tim MD WBC (Bld) [#/Vol] 4.3 10*3/uL Normal 3.5-11.3 [facility] Comment on above: Performed By: #### C P, TOM, TOMAS #### Lab [address] [place] [id number] Concrete Layer: Lakhwinder Tim MD [facility] Albumin [Mass/Vol] 4.4 g/dL 3.5 - 5.2 g/dL [facility] Albumin/Globulin [Mass ratio] 1.4 {ratio} 1.0 - 2.5 [facility] ALP [Catalytic activity/Vol] 66 U/L 35 - 104 U/L [facility] ALT [Catalytic activity/Vol] 9 U/L Low 10 - 35 U/L [facility] Anion gap [Moles/Vol] 9 mmol/L 9 - 16 mmol/L [facility] AST [Catalytic activity/Vol] 18 U/L 10 - 35 U/L [facility] Bilirubin [Mass/Vol] mg/dL 0.00 - 1.20 mg/dL [facility] Calcium [Mass/Vol] 9.2 mg/dL 8.6 - 10. 4 mg/dL [facility] Chloride [Moles/Vol] 104 mmol/L 98 - 10 7 mmol/L [facility] CO2 [Moles/Vol] 24 mmol/L 20 - 31 mmol/L [facility] Creatinine [Mass/Vol] 0.6 mg/dL 0.50 - 0.90 mg/dL [facility] Est, Glom Filt Rate - PINF [facility] Comment on above: These results [...] [Mass/Vol] 86 mg/dL 74 - 99 mg/dL [facility] Interpretation and review of laboratory results Abnormal [facility] Potassium [Moles/Vol] 3.8 mmol/L 3.7 - 5.3 mmol/L [facility] Protein [Mass/Vol] 7.6 g/dL 6.6 - 8.7 g/dL [facility] Sodium [Moles/Vol] 137 mmol/L 136 - 145 mmol/L [facility] Urea nitrogen [Mass/Vol] 9 mg/dL 6 - 20 mg/dL [facility] Urea nitrogen/Creatinine [Mass ratio] 15 mg/mg 9 - 20 [facility] CT ABDOMEN PELVIS W IV CONTR [...] COMPARISON: 02/07/2024 HISTORY: ORDERING SYSTEM PROVIDED HISTORY: [facility] pain TECHNOLOGIST PROVIDED HISTORY: [facility] pain Decision Support Exception - unselect [...] Wily Kumar MD 03/17/24 Final result Normal [facility] CT Abdomen and Pelvis W tomasa Beltre 03-17-2024 1. No direct evidenc e for acute infective or inflammatory process. 2. A 4.8 cm right adnexal cyst was previously 2.4 cm. Size and features would support benign functional cyst. Pelvic ultrasound may be considered in light of change in size, patient sentence and fat stranding. [facility] CONSOLIDATED EXAMINATION: CT OF THE ABDOMEN AND [...] COMPARISON: 02/07/2024 HISTORY: ORDERING SYSTEM PROVIDED HISTORY: [facility] pain TECHNOLOGIST PROVIDED HISTORY: [facility] pain Decision Support Exception - unselect [...] superficial soft tissues show no acute process. [facility] Wily Kumar MD - 03/17/2024 EXAMINATION: [...] COMPARISON: 02/07/2024 HISTORY: ORDERING SYSTEM PROVIDED HISTORY: [facility] pain TECHNOLOGIST PROVIDED HISTORY: [facility] pain Decision Support Exception - unselect [...] in size, patient sentence and fat stranding. [facility] Radiology Study observation (narrative) [facility] CT Abdomen and Pelvis W cont rast IVOrdered By: Wily Kumar on 03-17-2024 [facility] Work Phone: Comp Metabolic Profon 2023 Albumin [Mass/Vol] 4.4 g/dL Normal 3.5-5.2 [facility] Comment on above: Performed By: #### C PTOM, CDP #### Lab [address] [place], [place] [id number] Concrete Layer: Lakhwinder Tim MD Albumin/Glob Ratio 1.4 Normal 1.0-2.5 [facility] Comment on above: Performed By: #### C P, LIP, CDP #### Lab [address] [place], [place] [id number] Concrete Layer: Lakhwinder Tim MD Alkaline Phos 66 U/L Normal 35-104 [facility] Comment on above: Performed By: #### C P, LIP, CDP #### Lab [address] [place], [place] [id number] Concrete Layer: Lakhwinder Tim MD ALT [Catalytic activity/Vol] 9 U/L Low 10-35 [facility] Comment on above: Performed By: #### C P, LIP, CDP #### Lab [address] [place], [place] [id number] Concrete Layer: Lakhwinder Tim MD Anion gap [Moles/Vol] 9 mmol/L Normal 9-16 [facility] Comment on above: Performed By: #### C P, LIP, CDP #### Lab [address] [place], [place] [id number] Concrete Layer: Lakhwinder Tim MD AST [Catalytic activity/Vol] 18 U/L Normal 10-35 [facility] Comment on above: Performed By: #### C P, LIP, CDP #### Lab [address] [place], [place] [id number] Concrete Layer: Lakhwinder Tim MD Bilirubin [Mass/Vol] mg/dL Normal 0.00-1.20 [facility] Comment on above: Performed By: #### C P, LIP, CDP #### Lab [address] [place], [place] [id number] Concrete Layer: Lakhwinder Tim MD BUN/CRE Ratio 15 Normal 9-20 [facility] Comment on above: Performed By: #### C P, LIP, CDP #### Lab [address] [place], [place] [id number] Concrete Layer: Lakhwinder Tim MD Calcium [Mass/Vol] 9.2 mg/dL Normal 8.6-10.4 [facility] Comment on above: Performed By: #### C P, LIP, CDP #### Lab [address] [place] [address] Concrete Layer: Lakhwinder Tim MD Chloride [Moles/Vol] 104 mmol/L Normal 98-107 [facility] Comment on above: Performed By: #### C P, LIP, CDP #### Lab [address] [place], [facility]83 Concrete Layer: Lakhwinder Tim MD CO2 [Moles/Vol] 24 mmol/L Normal 20-31 [facility] Comment on above: Performed By: #### C P, LIP, CDP #### Lab [address] [place], [place] [id number] Concrete Layer: Lakhwinder Tim MD Creatinine [Mass/Vol] 0.6 mg/dL Normal 0.50-0.90 [facility] Comment on above: Performed By: #### C P, LIP, CDP #### [facility] [address] [place] [address] Concrete Layer: Lakhwidner Tim MD GFR/1.73 sq M.predicted among non-blacks MDRD (S/P/Bld) [Vol rate/Area] mL/min/{1.73_m2} Normal >60 [facility] Comment on above: Result Comment: These results [...] By: #### C P, LIP, CDP #### Lab [address] [place] [address] Concrete Layer: Lakhwinder Tim MD Glucose [Mass/Vol] 86 mg/dL Normal 74-99 [facility] Comment on above: Performed By: #### C P, LIP, CDP #### Lab [address] [place], [place] [id number] Concrete Layer: Lakhwinder Tim MD Potassium [Moles/Vol] 3.8 mmol/L Normal 3.7-5.3 [facility] Comment on above: Performed By: #### C P, LIP, CDP #### Lab [address] [place], [place] [id number] Concrete Layer: Lakhwinder Tim MD Protein [Mass/Vol] 7.6 g/dL Normal 6.6-8.7 [facility] Comment on above: Performed By: #### C P, LIP, CDP #### [address] [place], [place] [id number] Concrete Layer: Lakhwinder Tim MD Sodium [Moles/Vol] 137 mmol/L Normal 136-145 [facility] Comment on above: Performed By: #### C P, LIP, CDP #### [address] [place], [place] [id number] Concrete Layer: Lakhwinder Tim MD Urea nitrogen [Mass/Vol] 9 mg/dL Normal 6-20 [facility] Comment on above: Performed By: #### C P, LIP, CDP #### Lab [address] [place] [address] Dr. [place], [place] [id number] Concrete Layer: Lakhwinder Tim MD Lactic Acidon 03-17-2024 Lactate (BldV) [Moles/Vol] 0.9 mmol/L 0.5 - 2.2 mmol/L [facility] Lactate [Moles/Vol] 0.9 mmol/L Normal 0.5-2.2 [facility] Comment on above: Performed By: #### C P, LIP, CDP #### Lab [address] [place], [place] [id number] Concrete Layer: Lakhwinder Tim MD Lipaseon 03-17-2024 Lipase [Catalytic activity/Vol] 17 U/L 13 - 60 U/L [facility] Lipase [Catalytic activity/Vol] 17 U/L Normal -60 [facility] Comment on above: Performed By: #### C P, LIP, CDP #### Lab [address] [place] [address] Concrete Layer: Lakhwinder Tim MD Microscopic Urinalysison Epithelial cells LM.HPF (Urine sed) [#/Area] 0 TO 2 [facility] [facility] RBC LM.HPF (Urine sed) [#/Area] 0 TO 2 [facility] WBC LM.HPF (Urine sed) [#/Area] None [facility] No Panel Informationon 03-17 [facility] UA w/Reflex Cultureon 2023 Bilirubin, SemiQt,Ur Negative Normal NEG [facility] Comment on above: Performed By: #### C DP #### Lab [address] [place], [place] [id number] Concrete Layer: Lakhwinder Tim MD Blood, Urine TRACE Abnormal NEG [facility] Comment on above: Performed By: #### C DP #### Lab [address] [place], [place] [id number] Concrete Layer: Lakhwinder Tim MD Clarity (U) Clear Normal CLEAR [facility] Comment on above: Performed By: #### C DP #### Lab [address] [place] [address] Concrete Layer: Lakhwinder Tim MD Color (U) Yellow Normal YEL [facility] Comment on above: Performed By: #### C DP #### Lab [address] [place], [place] [id number] Concrete Layer: Lakhwinder Tim MD Glucose Ql (U) Negative Normal NEG [facility] Comment on above: Performed By: #### C DP #### Lab [address] [place], [facility]83 Concrete Layer: Lakhwinder Tim MD Ketones Ql (U) Negative [facility] Comment on above: Performed By: #### C DP #### Lab [address] [place], [facility]83 Concrete Layer: Lakhwinder Tim MD Leukocyte esterase Test strip Ql (U) Negative Normal NEG [facility] Comment on above: Performed By: #### C DP #### Lab [address] [place] [address] [place] [address] Concrete Layer: Lakhwinder Tim MD Nitrite,Ur Negative Normal NEG [facility] Comment on above: Performed By: #### C DP #### Lab [address] [place] [address] Dr. [place], [place] [address] Concrete Layer: Lakhwinder Tim MD PH,Ur 6.5 Normal 5.0-9.0 [facility] Comment on above: Performed By: #### C DP #### Lab [address] [place] [address] Dr. [place], [facility]83 Concrete Layer: Lakhwinder Tim MD Protein Ql (U) Negative Normal NEG [facility] Comment on above: Performed By: #### C DP #### Lab [address] [place] [address] Dr. [place], [facility]83 Concrete Layer: Lakhwinder Tim MD Spec. [place],Ur 1.015 Normal 1.010-1.020 [facility] Comment on above: Performed By: #### C DP #### Lab [address] [place] [address] [place] [id number] Concrete Layer: Lakhwinder Tim MD Urobilinogen,Ur Normal Normal 0.0-1.0 [facility] Comment on above: Performed By: #### C DP #### Lab [address] [place] [address] Concrete Layer: Lakhwinder Tim MD US NON OB TRANSVAGINAL [...] Carlos Tatum MD 03/17/24 Final result Normal [facility] Urinalysis with Reflex to Cu ltureon 03-17-2024 Bilirubin Ql (U) Negative NEGATIVE [facility] Glucose Test strip (U) [Mass/Vol] Negative NEGATIVE mg/dL [facility] Hemoglobin Auto test strip Ql (U) TRACE Abnormal NEGATIVE [facility] Interpretation and review of laboratory results Abnormal [facility] Ketones (U) [Mass/Vol] Negative NEGATIVE mg/dL [facility] Nitrite Ql (U) Negative NEGATIVE [facility] pH (U) 6.5 [pH] 5.0 - 9.0 [facility] Protein (U) [Mass/Vol] Negative NEGATIVE mg/dL [facility] Specific gravity (U) [Rel density] 1.015 1.010 - 1.020 [facility] Urobilinogen Qn (U) Normal 0.0 - 1. 0 EU/dL [facility] Urinalysis,Microon 4 Epithelial cells LM Ql (Urine sed) 0 TO 2 Normal 0-25 [facility] Comment on above: Performed By: #### C DP #### Lab [address] [place], [place] [id number] Concrete Layer: Lakhwinder Tim MD Urine RBC's 0 TO 2 Normal 0-2 [facility] Comment on above: Performed By: #### C DP #### Lab [address] [place], [place] [id number] Concrete Layer: Lakhwinder Tim MD Urine WBC's None Normal 0-5 [facility] Comment on above: Performed By: #### C DP #### Lab [address] [place] [address] Concrete Layer: Lakhwinder Tim MD [id number] 03-10-2024 SARS-CoV-2 (COVID-19) RNA MARICEL+probe Ql (Unsp spec) Detected Abnormal NOTDET [facility] Comment on above: Result Comment: Rapid NAAT: [...] this assay. Fact sheet for Healthcare Providers: https://www.fda.gov/media/320127/download Fact sheet for Patients: https://www.fda.gov/media/693457/download Methodology: Isothermal Nucleic Acid Amplification Results reported to the appropriate Health Department Performed By: #### U JERALD COLLINS #### Lab [address] [place] [address] Concrete Layer: Lakhwinder Tim MD BLOOD CULTUREon 02-07-2024 Bacteria identified Aer cx Nom (Bld) SPECIMEN NOTES SUBOPTIMAL VOLUME OF BLOOD COLLECTED, RESULTS MAY BE AFFECTED. CULTURE RESULTS NO GROWTH 5 DAYS Normal [facility] Comment on above: Performed By: #### C BCA, 25913-7, PINR, 49779-6, CMP #### [facility] ([id number]) [address], [address] [place] [address] Bacteria identified Aer cx Nom (Bld) CULTURE RESULTS NO GROWTH 5 DAYS Normal [facility] CBC AND AUTO DIFFon 02-07-20 ABSOLUTE BASOPHIL 0.0 X10E9/L Normal 0.0-0.2 [facility] Comment on above: Performed By: #### 2 823-3 #### [facility] ([id number]) [address], [address] [place] [address] ABSOLUTE NEUTROPHIL 3.0 X10E9/L Normal 1.5-6.6 [facility] Comment on above: Performed By: #### 2 823-3 #### [facility] ([id number]) [address], [address] [place] [address] Basophils/100 WBC (Bld) 0.4 % Normal [facility] Comment on above: Performed By: #### 2 823-3 #### [facility] ([id number]) [address], [address] [place] [address] Eosinophils (Bld) [#/Vol] 0.1 10*3/uL Normal 0.0-0.4 [facility] Comment on above: Performed By: #### 2 823-3 #### [facility] ([id number]) [address], [address] [place] [address] Eosinophils/100 WBC (Bld) 1.4 % Normal [facility] Comment on above: Performed By: #### 2 823-3 #### [facility] ([id number]) [address] [place] [address] Erythrocyte distribution width (RBC) [Ratio] 16.3 % High 11.5-15.0 [facility] Comment on above: Performed By: #### 2 823-3 #### [facility] ([id number]) [address], [address] [place] [address] Hematocrit (Bld) [Volume fraction] 32.5 % Low 35-47 [facility] Comment on above: Performed By: #### 2 823-3 #### [facility] ([id number]) [address] [place] [address] Hemoglobin (Bld) [Mass/Vol] 10.8 g/dL Low 11.7-15.5 [facility] Comment on above: Performed By: #### 2 823-3 #### [facility] ([id number]) [address] [place] [address] Lymphocytes (Bld) [#/Vol] 2.2 10*3/uL Normal 1.0-3.5 [facility] Comment on above: Performed By: #### 2 823-3 #### [facility] ([id number]) [address] [place] [address] Lymphocytes/100 WBC (Bld) 39.2 % Normal [facility] Comment on above: Performed By: #### 2 823-3 #### [facility] ([id number]) [address], [address] [place] [address] MCH (RBC) [Entitic mass] 28.2 pg Normal 27-34 [facility] Comment on above: Performed By: #### 2 823-3 #### [facility] ([id number]) [address], [address] [place] [address] MCHC (RBC) [Mass/Vol] 33.4 g/dL Normal 32-36 [facility] Comment on above: Performed By: #### 2 823-3 #### [facility] ([id number]) [address], [address] [place] [address] MCV (RBC) [Entitic vol] 85 fL Normal 80-100 [facility] Comment on above: Performed By: #### 2 823-3 #### [facility] ([id number]) [address] [place] [address] Monocytes (Bld) [#/Vol] 0.4 10*3/uL Normal 0-0.9 [facility] Comment on above: Performed By: #### 2 823-3 #### [facility] ([id number]) [address], [address] [place] [address] Monocytes/100 WBC (Bld) 7.0 % Normal [facility] Comment on above: Performed By: #### 2 823-3 #### [facility] ([id number]) [address] [place] [address] Neutrophils/100 WBC (Bld) 52.0 % Normal [facility] Comment on above: Performed By: #### 2 823-3 #### [facility] ([id number]) [address], [address] [place] [address] Platelet mean volume (Bld) [Entitic vol] 8.0 fL Normal 7-12 [facility] Comment on above: Performed By: #### 2 823-3 #### [facility] ([id number]) [address], [address] [place] [address] Platelets (Bld) [#/Vol] 224 10*3/uL Normal 150-450 [facility] Comment on above: Performed By: #### 2 823-3 #### [facility] ([id number]) [address], [address] [place] [address] RBC COUNT 3.84 X10E12/L Normal 3.80-5.20 [facility] Comment on above: Performed By: #### 2 823-3 #### [facility] ([id number]) [address], [address] [place] [address] WBC (Bld) [#/Vol] 5.7 10*3/uL Normal 4.0-11.0 [facility] Comment on above: Performed By: #### 2 823-3 #### [facility] ([id number]) [address], [address] [place] [address] CBC with Auto Differentialon 02-07-2024 Basophils (Bld) [#/Vol] [facility] Basophils/100 WBC (Bld) 1 % 0 - 2 % [facility] Eosinophils (Bld) [#/Vol] 0.12 10*3/uL [facility] Eosinophils/100 WBC (Bld) 3 % 1 - 4 % [facility] Erythrocyte distribution width (RBC) [Ratio] 15.0 % High 11.8 - 14.4 % [facility] Hematocrit (Bld) [Volume fraction] 35.2 % Low 36.3 - 47.1 % [facility] Hemoglobin (Bld) [Mass/Vol] 11.4 g/dL Low 11.9 - 15.1 g/dL [facility] Immature granulocytes (Bld) [#/Vol] [facility] Immature granulocytes/100 WBC (Bld) 0 % 0 [facility] Interpretation and review of laboratory results Abnormal [facility] Lymphocytes/100 WBC (Bld) 38 % 24 - 43 % [facility] Lymphocytes/100 WBC (Bld) 1.69 % [facility] MCH (RBC) [Entitic mass] 28.2 pg 25.2 - 33.5 pg [facility] MCHC (RBC) [Mass/Vol] 32.4 g/dL 28.4 - 34.8 g/dL [facility] MCV (RBC) [Entitic vol] 87.1 fL 82.6 - 102.9 fL [facility] Monocytes/100 WBC (Bld) 8 % 3 - 12 % [facility] Monocytes/100 WBC (Bld) 0.36 % [facility] Neutrophils/100 WBC (Bld) 50 % 36 - 65 % [facility] Nucleated RBC/100 WBC (Bld) [Ratio] 0.0 % 0.0 per 100 WBC [facility] Platelet mean volume (Bld) [Entitic vol] 10.3 fL 8.1 - 13.5 fL [facility] Platelets (Bld) [#/Vol] 228 10*3/uL [facility] RBC (Bld) [#/Vol] 4.04 10*6/uL 3.95 - 5.1 1 m/uL [facility] Segmented neutrophils/100 WBC (Bld) 2.23 % [facility] WBC other (Bld) [#/Vol] 4.4 [facility] CBC with Diffon 02-07-2024 Abs. Basophil <0.03 Normal 0.00-0.20 [facility] Comment on above: Performed By: #### C P, TOM, CDP #### Lab [address] [place] [address] [place] [address] Concrete Layer: Lakhwinder Tim MD Abs.Imm.Granulocyte <0.03 Normal 0.00-0.30 [facility] Comment on above: Performed By: #### C P, TOM, CDP #### Lab [address] [place] [address] Concrete Layer: Lakhwinder Tim MD Abs.Neutrophil (Seg) 2.23 k/uL Normal 1.50-8.10 [facility] Comment on above: Performed By: #### C P, LIP, CDP #### [address] [place], [place] [address] Concrete Layer: Lakhwinder Tim MD Basophils/100 WBC (Bld) 1 % Normal 0-2 [facility] Comment on above: Performed By: #### C P, LIP, CDP #### [address] [place], [place] [address] Concrete Layer: Lakhwinder Tim MD Eosinophils (Bld) [#/Vol] 0.12 10*3/uL Normal 0.00-0.44 [facility] Comment on above: Performed By: #### C P, LIP, CDP #### [address] [place] [address] Concrete Layer: Lakhwinder Tim MD Eosinophils/100 WBC (Bld) 3 % Normal 1-4 [facility] Comment on above: Performed By: #### C P, LIP, CDP #### [address] [place], [place] [address] Concrete Layer: Lakhwinder Tim MD Erythrocyte distribution width (RBC) [Ratio] 15.0 % High 11.8-14.4 [facility] Comment on above: Performed By: #### C P, LIP, CDP #### [address] [place] [address] Concrete Layer: Lakhwinder Tim MD Hematocrit (Bld) [Volume fraction] 35.2 % Low 36.3-47.1 [facility] Comment on above: Performed By: #### C P, LIP, CDP #### [address] [place] [id number] Concrete Layer: Lakhwinder Tim MD Hemoglobin (Bld) [Mass/Vol] 11.4 g/dL Low 11.9-15.1 [facility] Comment on above: Performed By: #### C P, LIP, CDP #### [facility] [address] [place], [place] [id number] Concrete Layer: Lakhwinder Tim MD Immature granulocytes/100 WBC (Bld) 0 % Normal 0 [facility] Comment on above: Performed By: #### C P, LIP, CDP #### [address] [place], [place] [id number] Concrete Layer: Lakhwinder Tim MD Lymphocytes (Bld) [#/Vol] 1.69 10*3/uL Normal 1.10-3.70 [facility] Comment on above: Performed By: #### C P, LIP, CDP #### [address] [place], [facility]83 Concrete Layer: Lakhwinder Tim MD Lymphocytes/100 WBC (Bld) 38 % Normal 24-43 [facility] Comment on above: Performed By: #### C P, LIP, CDP #### [address] [place], [facility]83 Concrete Layer: Lakhwinder Tim MD MCH (RBC) [Entitic mass] 28.2 pg Normal 25.2-33.5 [facility] Comment on above: Performed By: #### C P, LIP, CDP #### [address] [place], [facility]83 Concrete Layer: Lakhwinder Tim MD MCHC (RBC) [Mass/Vol] 32.4 g/dL Normal 28.4-34.8 [facility] Comment on above: Performed By: #### C P, LIP, CDP #### [address] [place], [place] [id number] Concrete Layer: Lakhwinder Tim MD MCV (RBC) [Entitic vol] 87.1 fL Normal 82.6-102.9 [facility] Comment on above: Performed By: #### C P, LIP, CDP #### [address] [place], [facility]83 Concrete Layer: Lakhwinder Tim MD Monocytes (Bld) [#/Vol] 0.36 10*3/uL Normal 0.10-1.20 [facility] Comment on above: Performed By: #### C P, LIP, CDP #### Lab [address] [place], [facility]83 Concrete Layer: Lakhwinder Tim MD Monocytes/100 WBC (Bld) 8 % Normal 3-12 [facility] Comment on above: Performed By: #### C P, LIP, CDP #### [facility] [address] [place], [place] [address] Concrete Layer: Lakhwinder Tim MD Neutrophil (Seg) 50 % Normal 36-65 [facility] Comment on above: Performed By: #### C P, LIP, CDP #### [address] [place], [facility] Concrete Layer: Lakhwinder Tim MD NRBC Automated 0.0 per 100 WBC Normal 0.0 [facility] Comment on above: Performed By: #### C P, LIP, CDP #### [address] [place], [facility]83 Concrete Layer: Lakhwinder Tim MD Platelet mean volume (Bld) [Entitic vol] 10.3 fL Normal 8.1-13.5 [facility] Comment on above: Performed By: #### C P, LIP, CDP #### Lab [address] [place], [facility]83 Concrete Layer: Lakhwinder Tim MD Platelets (Bld) [#/Vol] 228 10*3/uL Normal 138-453 [facility] Comment on above: Performed By: #### C P, LIP, CDP #### Lab [address] [place], [facility]83 Concrete Layer: Lakhwinder Tim MD RBC (Bld) [#/Vol] 4.04 10*6/uL Normal 3.95-5.11 [facility] Comment on above: Performed By: #### TOM Donahue, CDP #### Lab [address] [place], [place] [id number] Concrete Layer: Lakhwinder Tim MD WBC (Bld) [#/Vol] 4.4 10*3/uL Normal 3.5-11.3 [facility] Comment on above: Performed By: #### TOM Donahue, CDP #### Lab [address] [place] [address] Concrete Layer: Lakhwinder Tim MD [facility] 02-07-2024 Albumin [Mass/Vol] 3.7 g/dL Normal 3.2-5.3 [facility] Comment on above: Performed By: #### 2 823-3 #### [facility] ([id number]) [address], [address] [place] [address] ALP [Catalytic activity/Vol] 45 U/L Normal 39-130 [facility] Comment on above: Performed By: #### 2 823-3 #### [facility] ([id number]) [address] [place] [address] ALT [Catalytic activity/Vol] 7 U/L Normal 0-31 [facility] Comment on above: Performed By: #### 2 823-3 #### [facility] ([id number]) [address] [place] [address] Anion gap [Moles/Vol] 10 mmol/L Normal 5-15 [facility] Comment on above: Performed By: #### 2 823-3 #### [facility] ([id number]) [address] [place] [address] AST [Catalytic activity/Vol] 12 U/L Normal 0-41 [facility] Comment on above: Performed By: #### 2 823-3 #### [facility] ([id number]) [address] [place] [address] Bilirubin [Mass/Vol] 0.3 mg/dL Normal 0.3-1.2 [facility] [place] Comment on above: Performed By: #### 2 823-3 #### [facility] ([id number]) [address] [place] [address] Calcium [Mass/Vol] 9.1 mg/dL Normal 8.5-10.5 [facility] Comment on above: Performed By: #### 2 823-3 #### [facility] ([id number]) [address] [place] [address] Chloride [Moles/Vol] 107 mmol/L Normal 98-109 [facility] [place] Comment on above: Performed By: #### 2 823-3 #### [facility] ([id number]) [address] [place] [address] CO2 [Moles/Vol] 25 mmol/L Normal 22-32 [facility] Comment on above: Performed By: #### 2 823-3 #### [facility] ([id number]) [address] [place] [address] Creatinine [Mass/Vol] 0.54 mg/dL Normal 0.40-1.00 [facility] Comment on above: Result Comment: METH OD TRACEABLE TO IDMS STANDARD Performed By: #### 2 823-3 #### [facility] ([id number]) [address] [place] [address] eGFR (CKD-EPI) NON-RACE DEPENDENT >90 Normal >59 [facility] Comment on above: Result Comment: Reported eGFR is based on the CKD-EPI 2020 equation that does not use a race coefficient. Performed By: #### 2 823-3 #### [facility] ([id number]) [address] [place] [address] Glucose [Mass/Vol] 96 mg/dL Normal 65-99 [facility] Comment on above: Performed By: #### 2 823-3 #### [facility] ([id number]) [address] [place] [address] Potassium [Moles/Vol] 3.5 mmol/L Normal 3.5-5.0 [facility] Comment on above: Performed By: #### 2 823-3 #### [facility] ([id number]) [address] [place] [address] Protein [Mass/Vol] 7.3 g/dL Normal 6.0-8.0 [facility] Comment on above: Performed By: #### 2 823-3 #### [facility] ([id number]) [address] [place] [address] Sodium [Moles/Vol] 142 mmol/L Normal 134-146 [facility] Comment on above: Performed By: #### 2 823-3 #### [facility] ([id number]) [address] [place] [address] Urea nitrogen [Mass/Vol] 3 mg/dL Low 5-23 [facility] Comment on above: Performed By: #### 2 823-3 #### [facility] ([id number]) [address] [place] [address] CT ABDOMEN PELVIS W IV CONTR Marichuy [...] Carlos Alejo MD 02/07/24 Final result Normal [facility] CT Abdomen and Pelvis W cont rast Alexsander 02-07-2024 No acute abdominopel davi abnormality. [facility] EXAMINATION: CT OF THE ABDOMEN AND [...] no acute fracture or aggressive osseous lesion. [facility] Carlos Alejo MD - 02/07/2024 EXAMINATION: [...] osseous lesion. IMPRESSION: No acute abdominopelvic abnormality. [facility] Radiology Study observation (narrative) [facility] CT Abdomen and Pelvis W cont rast IVOrdered By: Carlos Alejo on 02-07-2024 [facility] Work Phone: Comp Metabolic Profon 2023 Albumin [Mass/Vol] 4.2 g/dL Normal 3.5-5.2 [facility] Comment on above: Performed By: #### C P, LIP, CDP #### Lab [address] [place] [address] Concrete Layer: Lakhwinder Tim MD Albumin/Glob Ratio 1.2 Normal 1.0-2.5 [facility] Comment on above: Performed By: #### C P, LIP, CDP #### Lab [address] [place] [address] Concrete Layer: Lakhwinder Tim MD Alkaline Phos 56 U/L Normal 35-104 [facility] Comment on above: Performed By: #### C P, LIP, CDP #### Lab [address] [place] [address] Concrete Layer: Lakhwinder Tim MD ALT [Catalytic activity/Vol] 7 U/L Normal 5-33 [facility] Comment on above: Performed By: #### C P, LIP, CDP #### Lab [address] [place], [place] [id number] Concrete Layer: Lakhwinder Tim MD Anion gap [Moles/Vol] 11 mmol/L Normal 9-17 [facility] Comment on above: Performed By: #### C P, LIP, CDP #### Lab [address] [place], [place] [id number] Concrete Layer: Lakhwinder Tim MD AST [Catalytic activity/Vol] 13 U/L Normal <32 [facility] Comment on above: Performed By: #### C P, LIP, CDP #### Lab [address] [place], [place] [id number] Concrete Layer: Lakhwinder Tim MD Bilirubin [Mass/Vol] 0.2 mg/dL Low 0.3-1.2 [facility] Comment on above: Performed By: #### C P, LIP, CDP #### Lab [address] [place], [place] [id number] Concrete Layer: Lakhwinder Tim MD BUN/CRE Ratio 8 Low 9-20 [facility] Comment on above: Performed By: #### C P, LIP, CDP #### Lab [address] [place], [place] [id number] Concrete Layer: Lakhwinder Tim MD Calcium [Mass/Vol] 9.1 mg/dL Normal 8.6-10.4 [facility] Comment on above: Performed By: #### C P, LIP, CDP #### Lab [address] [place] [address] Concrete Layer: Lakhwinder Tim MD Chloride [Moles/Vol] 102 mmol/L Normal 98-107 [facility] Comment on above: Performed By: #### C P, LIP, CDP #### Lab [address] [place] [address] Concrete Layer: Lakhwinder Tim MD CO2 [Moles/Vol] 26 mmol/L Normal 20-31 [facility] Comment on above: Performed By: #### C P, LIP, CDP #### Lab [address] [place], [place] [id number] [employer] Layer: Lakhwinder Tim MD Creatinine [Mass/Vol] 0.5 mg/dL Normal 0.5-0.9 [facility] Comment on above: Performed By: #### C P, LIP, CDP #### Lab [address] [place], [place] [id number] [employer] Layer: Lakhwinder Tim MD GFR/1.73 sq M.predicted among non-blacks MDRD (S/P/Bld) [Vol rate/Area] mL/min/{1.73_m2} Normal >60 [facility] Comment on above: Result Comment: These results [...] By: #### C P, LIP, CDP #### Lab [address] [place] [id number] [employer] Layer: Lakhwinder Tim MD Glucose [Mass/Vol] 83 mg/dL Normal 70-99 [facility] Comment on above: Performed By: #### C P, LIP, CDP #### Lab [address] [place], [place] [id number] [employer] Layer: Lakhwinder Tim MD Potassium [Moles/Vol] 4.1 mmol/L Normal 3.7-5.3 [facility] Comment on above: Performed By: #### C P, LIP, CDP #### Lab [address] [place], [place] [id number] Concrete Layer: Lakhwinder Tim MD Protein [Mass/Vol] 7.7 g/dL Normal 6.4-8.3 [facility] Comment on above: Performed By: #### C P, LIP, CDP #### Lab [address] [place], [place] [id number] Concrete Layer: Lakhwinder Tim MD Sodium [Moles/Vol] 139 mmol/L Normal 135-144 [facility] Comment on above: Performed By: #### C P, LIP, CDP #### Lab [address] [place], [place] [id number] Concrete Layer: Lakhwinder Tim MD Urea nitrogen [Mass/Vol] 4 mg/dL Low 6-20 [facility] Comment on above: Performed By: #### C P, LIP, CDP #### Lab [address] [place], [place] [id number] Concrete Layer: Lakhwinder Tim MD Comprehensive Metabolic Pane [facility] 02-07-2024 Albumin [Mass/Vol] 4.2 g/dL 3.5 - 5.2 g/dL [facility] Albumin/Globulin [Mass ratio] 1.2 {ratio} 1.0 - 2.5 [facility] ALP [Catalytic activity/Vol] 56 U/L 35 - 104 U/L [facility] ALT [Catalytic activity/Vol] 7 U/L 5 - 33 U/L [facility] Anion gap [Moles/Vol] 11 mmol/L 9 - 17 mmol/L [facility] AST [Catalytic activity/Vol] 13 U/L NINF - 32 U/L [facility] Bilirubin [Mass/Vol] 0.2 mg/dL Low 0.3 - 1 .2 mg/dL [facility] Calcium [Mass/Vol] 9.1 mg/dL 8.6 - 10. 4 mg/dL [facility] Chloride [Moles/Vol] 102 mmol/L 98 - 10 7 mmol/L [facility] CO2 [Moles/Vol] 26 mmol/L 20 - 31 mmol/L [facility] Creatinine [Mass/Vol] 0.5 mg/dL 0.5 - 0.9 mg/dL [facility] Est, Glom Filt Rate - PINF [facility] Comment on above: These results [...] [Mass/Vol] 83 mg/dL 70 - 99 mg/dL [facility] Interpretation and review of laboratory results Abnormal [facility] Potassium [Moles/Vol] 4.1 mmol/L 3.7 - 5.3 mmol/L [facility] Protein [Mass/Vol] 7.7 g/dL 6.4 - 8.3 g/dL [facility] Sodium [Moles/Vol] 139 mmol/L 135 - 144 mmol/L [facility] Urea nitrogen [Mass/Vol] 4 mg/dL Low 6 - 20 mg/dL [facility] Urea nitrogen/Creatinine [Mass ratio] 8 mg/mg Low 9 - 20 [facility] LIPASEon 02-07-2024 Lipase [Catalytic activity/Vol] 11 U/L Normal 11-82 [facility] Comment on above: Performed By: #### C BCA, 58470-6, PINR, [id number], CMP #### [facility] ([id number]) [address] [place] [address] Lactic Acidon 02-07-2024 Lactate (BldV) [Moles/Vol] 0.6 mmol/L 0.5 - 2.2 mmol/L [facility] Lactate [Moles/Vol] 0.6 mmol/L Normal 0.5-2.2 [facility] Comment on above: Performed By: #### C P, LIP, CDP #### Lab [address] [place] [address] Concrete Layer: Lakhwinder Tim MD Lipaseon 02-07-2024 Lipase [Catalytic activity/Vol] 19 U/L 13 - 60 U/L [facility] Lipase [Catalytic activity/Vol] 19 U/L Normal 13-60 [facility] Comment on above: Performed By: #### C P, LIP, CDP #### Lab [address] [place] [address] Concrete Layer: Lakhwinder Tim MD Microscopic Urinalysison Epithelial cells LM.HPF (Urine sed) [#/Area] 0 TO 2 [facility] RBC LM.HPF (Urine sed) [#/Area] 0 TO 2 [facility] WBC LM.HPF (Urine sed) [#/Area] 0 TO 2 [facility] No Panel Informationon 02-06 [facility] Troponin I.cardiac High sens itivity method [Mass/Vol]on 02-07-2024 1 HOUR TROP I, HIGH SENSITIVITY <2 Normal <16 [facility] Comment on above: Performed By: #### C BCA, 94124-1, PINR, [id number], CMP #### [facility] ([id number]) [address] [place] [address] TROPONIN I, HIGH SENSITIVITY <2 Normal <16 [facility] Comment on above: Performed By: #### C BCA, 32753-3, PINR, [id number], CMP #### [facility] ([id number]) [address], [address] [place] [address] UA w/Reflex Cultureon 2023 Bilirubin, SemiQt,Ur Negative Normal NEG [facility] Comment on above: Performed By: #### U MICAO, UAX #### Lab [address] [place], [place] [id number] Concrete Layer: Lakhwinder Tim MD Blood, Urine Negative Normal NEG [facility] Comment on above: Performed By: #### U MICAO, UAX #### Lab [address] [place], [place] [id number] Concrete Layer: Lakhwinder Tim MD Clarity (U) Clear Normal CLEAR [facility] Comment on above: Performed By: #### U MICAO, UAX #### Lab [address] [place], [place] [id number] Concrete Layer: Lakhwinder Tim MD Color (U) Yellow Normal YEL [facility] Comment on above: Performed By: #### U MICAO, UAX #### Lab [address] [place], [place] [id number] Concrete Layer: Lakhwinder Tim MD Glucose Ql (U) Negative Normal NEG [facility] Comment on above: Performed By: #### U MICAO, UAX #### Lab [address] [place], [place] [id number] Concrete Layer: Lakhwinder Tim MD Ketones Ql (U) Negative Normal NEG [facility] Comment on above: Performed By: #### U MICAO, UAX #### Lab [address] [place] [address] Concrete Layer: Lakhwinder Tim MD Leukocyte esterase Test strip Ql (U) Negative Normal NEG [facility] Comment on above: Performed By: #### U MICAO, UAX #### Lab [address] [place] [address] Concrete Layer: Lakhwinder Tim MD Nitrite,Ur Negative Normal NEG [facility] Comment on above: Performed By: #### U OSMINO, UAX #### Lab [address] [place] [address] [address] [place], [place] [id number] Concrete Layer: Lakhwinder Tim MD PH,Ur 7.5 Normal 5.0-9.0 [facility] Comment on above: Performed By: #### U OSMINO, UAX #### Lab [address] [place] [address] [place] [id number] Concrete Layer: Lakhwinder Tim MD Protein Ql (U) Negative Normal NEG [facility] Comment on above: Performed By: #### U OSMINO, UAX #### [address] [place] [address] Concrete Layer: Lakhwinder Tim MD Spec. [place],Ur 1.010 Normal 1.010-1.020 [facility] Comment on above: Performed By: #### U OSMINO, UAX #### [address] [place] [address] Concrete Layer: Lakhwinder Tim MD Urobilinogen,Ur Normal Normal 0.0-1.0 [facility] Comment on above: Performed By: #### U OSMINO, UAX #### Lab [address] [place] [address] Dr. [place], [facility] Concrete Layer: Lakhwinder Tim MD URN MACROSCOPIC NURon 2023 BILIRUBIN L[place]SEY Negative Normal NEG [facility] Comment on above: Performed By: #### C DARIO, 42901-6, PINR, [id number], CMP #### [facility] ([id number]) [address], [address] [place] [address] BLOOD/HGB LYNSEY Trace Abnormal NEG [facility] Comment on above: Performed By: #### C BCA, 90006-2, PINR, [id number], CMP #### [facility] ([id number]) [address], [address] [place] [address] GLUCOSE L[place]SEY Negative Normal NEG [facility] Comment on above: Performed By: #### C BCA, 08176-7, PINR, [id number], CMP #### [facility] ([id number]) [address], [address] [place] [address] KETONES LYNSEY Negative Normal NEG [facility] Comment on above: Performed By: #### C BCA, 00663-2, PINR, [id number], CMP #### [facility] ([id number]) [address], [address] [place] [address] LEUKOCYTE ESTERASE LYNSEY Negative Normal NEG [facility] Comment on above: Performed By: #### C BCA, 63013-2, PINR, [id number], CMP #### [facility] ([id number]) [address], [address] [place] [address] NITRITE LYNSEY Negative Normal NEG [facility] Comment on above: Performed By: #### C BCA, 84621-4, PINR, [id number], CMP #### [facility] ([id number]) [address], [address] [place] [address] PH LYNSEY 7.0 Normal 5.0-8.5 [facility] Comment on above: Performed By: #### C BCA, 36044-2, PINR, 42640-4, CMP #### [facility] ([id number]) [address], [address] [place] [address] PROTEIN LYNSEY Negative Normal NEG [facility] Comment on above: Performed By: #### C BCA, 56019-8, PINR, [id number], CMP #### [facility] ([id number]) [address], [address] [place] [address] SPECIFIC GRAVITY LYNSEY 1.020 Normal 1.003-1.035 [facility] Comment on above: Performed By: #### C BCA, 27056-4, PINR, [id number], CMP #### [facility] ([id number]) [address], [address] [place] [address] UROBILINOGEN LYNSEY 0.2 eu/dL Normal <1.1 [facility] Comment on above: Performed By: #### C BCA, 89988-3, PINR, [id number], CMP #### [facility] ([id number]) [address] [place] [address] US PELVIC WITH TRANSVAGINAL AND DUPLEXon 02-07-2024 [...] Cifuentes MD on 02/07/2024 10:56 PM Normal [facility] Urinalysis with Reflex to Cu ltureon 02-07-2024 Bilirubin Ql (U) Negative NEGATIVE [facility] Clarity (U) Clear Clear [facility] Color (U) Yellow Yellow [facility] Glucose Test strip (U) [Mass/Vol] Negative NEGATIVE mg/dL [facility] Hemoglobin Auto test strip Ql (U) Negative NEGATIVE [facility] Ketones (U) [Mass/Vol] Negative NEGATIVE mg/dL [facility] Leukocyte esterase Test strip Ql (U) Negative NEGATIVE [facility] Nitrite Ql (U) Negative NEGATIVE [facility] pH (U) 7.5 [pH] 5.0 - 9.0 [facility] Protein (U) [Mass/Vol] Negative NEGATIVE mg/dL [facility] Specific gravity (U) [Rel density] 1.010 1.010 - 1.020 [facility] Urobilinogen Qn (U) Normal 0.0 - 1. 0 EU/dL [facility] Urinalysis,Microon 4 Epithelial cells LM Ql (Urine sed) 0 TO 2 Normal 0-25 [facility] Comment on above: Performed By: #### U MICAO, UAX #### Lab [address] [place] [address] Concrete Layer: Lakhwinder Tim MD Urine RBC's 0 TO 2 Normal 0-2 [facility] Comment on above: Performed By: #### U MICAO, UAX #### Lab [address] [place] [address] Concrete Layer: Lakhwinder Tim MD Urine WBC's 0 TO 2 Normal 0-5 [facility] Comment on above: Performed By: #### U MICAO, UAX #### Lab [address] [place] [address] Concrete Layer: Lakhwinder Tim MD Urine collection deviceon ER EXTRA URINES ER EXTRA URINE ORDER IN PROCESS Normal [facility] Vaginitis DNA Probeon 2023 Anca Negative Normal NEG [facility] Comment on above: Result Comment: for Anca sp. Method of testing is a DNA probe intended for detection and identification of Anca species, Gardnerella vaginalis, and Trichomonas vaginalis nucleic acid in vaginal fluid specimens from patients with symptoms of vaginitis/vaginosis. Performed By: #### U MICAO, UAX #### Lab [address] [place] [address] Concrete Layer: Lakhwinder Tim MD Gardnerella Negative Normal [facility] Comment on above: Result Comment: for Gardnerella vaginalis Performed By: #### U MICAO, UAX #### Lab [address] [place] [address] Concrete Layer: Lakhwinder Tim MD Trichomonas Negative [facility] Comment on above: Result Comment: for Trichomonas Vaginalis Performed By: #### U MICAO, UAX #### Lab [address] [place] [address] Concrete Layer: Lakhwinder Tim MD Cult,Bloodon 02-06-2024 Cult,Blood Specimen [...] to and read back by:ROLAND AGUILLON 02/04/2024 @8532 by [employer] [id number] Report Status FINAL 02/06/2024 Normal [facility] Comment on above: Performed By: #### B C #### [facility] [address] [place], [place] 3976[address] Concrete Layer: Sacha Lai MD Lab [address] [place] [address] Dr. [place], [place] [id number] Concrete Layer: Lakhwinder Tim MD Vaginitis DNA Probeon 2023 Source .VAGINAL SWAB Normal [facility] Comment on above: Performed By: #### U MICAO, UAX #### Lab [address] [place], [place] [id number] Concrete Layer: Lakhwinder Tim MD Basic Metabolic Profon 02-04 Anion gap [Moles/Vol] 10 mmol/L Normal - [facility] Comment on above: Performed By: #### C P, LIP, CDP #### [address] [place], [place] [id number] Concrete Layer: Lakhwinder Tim MD BUN/CRE Ratio 10 Normal 03-08 [facility] Comment on above: Performed By: #### C P, LIP, CDP #### [address] [place], [place] [id number] Concrete Layer: Lakhwinder Tim MD Calcium [Mass/Vol] 9.1 mg/dL Normal 8.6-10.4 [facility] Comment on above: Performed By: #### C P, LIP, CDP #### Lab [address] [place], [place] 8727683 Concrete Layer: Lakhwinder Tim MD Chloride [Moles/Vol] 102 mmol/L Normal 98-107 [facility] Comment on above: Performed By: #### C P, LIP, CDP #### Lab [address] [place], [place] [id number] Concrete Layer: Lakhwinder Tim MD CO2 [Moles/Vol] 27 mmol/L Normal 20-31 [facility] Comment on above: Performed By: #### C P, LIP, CDP #### Lab [address] [place] [address] Concrete Layer: Lakhwinder Tim MD Creatinine [Mass/Vol] 0.7 mg/dL Normal 0.5-0.9 [facility] Comment on above: Performed By: #### C P, LIP, CDP #### Lab [address] [place] [address] Concrete Layer: Lakhwinder Tim MD GFR/1.73 sq M.predicted among non-blacks MDRD (S/P/Bld) [Vol rate/Area] mL/min/{1.73_m2} Normal >60 [facility] Comment on above: Result Comment: These results [...] By: #### C P, LIP, CDP #### Lab [address] [place] [address] Concrete Layer: Lakhwinder Tim MD Glucose [Mass/Vol] 93 mg/dL Normal 70-99 [facility] Comment on above: Performed By: #### C P, LIP, CDP #### Lab [address] [place] [address] Concrete Layer: Lakhwinder Tim MD Potassium [Moles/Vol] 3.7 mmol/L Normal 3.7-5.3 [facility] Comment on above: Performed By: #### C P, LIP, CDP #### Lab [address] [place] [address] Concrete Layer: Lakhwinder Tim MD Sodium [Moles/Vol] 139 mmol/L Normal 135-144 [facility] Comment on above: Performed By: #### C P LIP, CDP #### Lab [address] [place], [place] [id number] Concrete Layer: Lakhwinder Tim MD Urea nitrogen [Mass/Vol] 7 mg/dL Normal 6-20 [facility] Comment on above: Performed By: #### C P, LIP, CDP #### Lab [address] [place], [place] [id number] Concrete Layer: Lakhwinder Tim MD CBC with Diffon 02-05-2024 Abs. Basophil <0.03 Normal 0.00-0.20 [facility] Comment on above: Performed By: #### C P LIP, CDP #### [address] [place], [place] [id number] Concrete Layer: Lakhwinder Tim MD Abs.Imm.Granulocyte <0.03 Normal 0.00-0.30 [facility] Comment on above: Performed By: #### C PTOM, CDP #### [address] [place], [place] [id number] Concrete Layer: Lakhwinder Tim MD Abs.Neutrophil (Seg) 3.35 k/uL Normal 1.50-8.10 [facility] Comment on above: Performed By: #### C P LIP, CDP #### Lab [address] [place] [address] Dr. [place], [place] [id number] Concrete Layer: Lakhwinder Tim MD Basophils/100 WBC (Bld) 0 % Normal 0-2 [facility] Comment on above: Performed By: #### C P LIP, CDP #### [facility] [address] [place], [place] [id number] Concrete Layer: Lakhwinder Tim MD Eosinophils (Bld) [#/Vol] 0.10 10*3/uL Normal 0.00-0.44 [facility] Comment on above: Performed By: #### C P, LIP, CDP #### [address] [place] [address] Concrete Layer: Lakhwinder Tim MD Eosinophils/100 WBC (Bld) 2 % Normal 1-4 [facility] Comment on above: Performed By: #### C P, LIP, CDP #### [address] [place], [place] [address] Concrete Layer: Lakhwinder Tim MD Erythrocyte distribution width (RBC) [Ratio] 15.0 % High 11.8-14.4 [facility] Comment on above: Performed By: #### C P, LIP, CDP #### [address] [place] [address] Concrete Layer: Lakhwinder Tim MD Hematocrit (Bld) [Volume fraction] 33.6 % Low 36.3-47.1 [facility] Comment on above: Performed By: #### C P, LIP, CDP #### [address] [place] [address] Concrete Layer: Lakhwinder Tmi MD Hemoglobin (Bld) [Mass/Vol] 11.0 g/dL Low 11.9-15.1 [facility] Comment on above: Performed By: #### C P, LIP, CDP #### [address] [place], [place] [address] Concrete Layer: Lakhwinder Tim MD Immature granulocytes/100 WBC (Bld) 0 % Normal 0 [facility] Comment on above: Performed By: #### C P, LIP, CDP #### [address] [place] [id number] Concrete Layer: Lakhwinder Tim MD Lymphocytes (Bld) [#/Vol] 2.20 10*3/uL Normal 1.10-3.70 [facility] Comment on above: Performed By: #### C P, LIP, CDP #### [facility] [address] [place], [place] [id number] Concrete Layer: Lakhwinder Tim MD Lymphocytes/100 WBC (Bld) 35 % Normal 24-43 [facility] Comment on above: Performed By: #### C P, LIP, CDP #### [facility] [address] [place], [place] [address] Concrete Layer: Lakhwinder Tim MD MCH (RBC) [Entitic mass] 28.2 pg Normal 25.2-33.5 [facility] Comment on above: Performed By: #### C P, LIP, CDP #### [address] [place] [address] Concrete Layer: Lakhwinder Tim MD MCHC (RBC) [Mass/Vol] 32.7 g/dL Normal 28.4-34.8 [facility] Comment on above: Performed By: #### C P, LIP, CDP #### [address] [place], [facility] Concrete Layer: Lakhwinder Tim MD MCV (RBC) [Entitic vol] 86.2 fL Normal 82.6-102.9 [facility] Comment on above: Performed By: #### C P, LIP, CDP #### [address] [place], [place] [address] Concrete Layer: Lakhwinder Tim MD Monocytes (Bld) [#/Vol] 0.59 10*3/uL Normal 0.10-1.20 [facility] Comment on above: Performed By: #### C P, LIP, CDP #### [facility] [address] [place], [place] [id number] Concrete Layer: Lakhwinder Tim MD Monocytes/100 WBC (Bld) 9 % Normal 3-12 [facility] Comment on above: Performed By: #### C P, LIP, CDP #### Lab [address] [place], [place] [id number] Concrete Layer: Lakhwinder Tim MD Neutrophil (Seg) 54 % Normal 36-65 [facility] Comment on above: Performed By: #### C P, LIP, CDP #### Lab [address] [place], [place] [id number] Concrete Layer: Lakhwinder Tim MD NRBC Automated 0.0 per 100 WBC Normal 0.0 [facility] Comment on above: Performed By: #### C P, LIP, CDP #### [facility] [address] [place] [id number] Concrete Layer: Lakhwinder Tim MD Platelet mean volume (Bld) [Entitic vol] 10.0 fL Normal 8.1-13.5 [facility] Comment on above: Performed By: #### C P, LIP, CDP #### [address] [place], [facility] Concrete Layer: Lakhwinder Tim MD Platelets (Bld) [#/Vol] 261 10*3/uL Normal 138-453 [facility] Comment on above: Performed By: #### C P, LIP, CDP #### [address] [place] [id number] Concrete Layer: Lakhwinder Tim MD RBC (Bld) [#/Vol] 3.90 10*6/uL Low 3.95-5.11 [facility] Comment on above: Performed By: #### C P, LIP, CDP #### [address] [place], [place] [id number] Concrete Layer: Lakhwinder Tim MD WBC (Bld) [#/Vol] 6.3 10*3/uL Normal 3.5-11.3 [facility] Comment on above: Performed By: #### C P, LIP, CDP #### [address] [place] [address] Concrete Layer: Lakhwinder Tim MD UA w/Reflex Cultureon 2023 Bilirubin, SemiQt,Ur Negative Normal NEG [facility] Comment on above: Performed By: #### U MICAO, UAX #### Lab [address] [place] [address] Concrete Layer: Lakhwinder Tim MD Blood, Urine Negative Normal NEG [facility] Comment on above: Performed By: #### U MICAO, UAX #### Lab [address] [place], [place] [id number] Concrete Layer: Lakhwinder Tim MD Clarity (U) Clear Normal CLEAR [facility] Comment on above: Performed By: #### U MICAO, UAX #### Lab [address] [place], [place] [id number] Concrete Layer: Lakhwinder Tim MD Color (U) Yellow Normal YEL [facility] Comment on above: Performed By: #### U MICAO, UAX #### Lab [address] [place] [address] [place] [address] Concrete Layer: Lakhwinder Tim MD Glucose Ql (U) Negative Normal NEG [facility] Comment on above: Performed By: #### U MICAO, UAX #### Lab [address] [place] [address] [place] [address] Concrete Layer: Lakhwinder Tim MD Ketones Ql (U) Negative Normal NEG [facility] Comment on above: Performed By: #### U MICAO, UAX #### Lab [address] [place], [place] [id number] Concrete Layer: Lakhwinder Tim MD Leukocyte esterase Test strip Ql (U) Negative Normal NEG [facility] Comment on above: Performed By: #### U MICAO, UAX #### Lab [address] [place] [address] Dr. [place], [place] [id number] Concrete Layer: Lakhwinder Tim MD Nitrite,Ur Negative Normal NEG [facility] Comment on above: Performed By: #### U MICAO, UAX #### Lab [address] [place] [address] [place] [address] Concrete Layer: Lakhwinder Tim MD PH,Ur 8.0 Normal 5.0-9.0 [facility] Comment on above: Performed By: #### U MICAO, UAX #### Lab [address] [place] [address] [place] [address] Concrete Layer: Lakhwinder Tim MD Protein Ql (U) Negative Normal NEG [facility] Comment on above: Performed By: #### U MICAO, UAX #### [address] [place], [place] [id number] Concrete Layer: Lakhwinder Tim MD Spec. [place],Ur 1.020 Normal 1.010-1.020 [facility] Comment on above: Performed By: #### U MICAO, UAX #### [address] [place], [place] 9201383 Concrete Layer: Lakhwinder Tim MD Urobilinogen,Ur Normal Normal 0.0-1.0 [facility] Comment on above: Performed By: #### U MICAO, UAX #### Lab [address] [place] [address] Dr. [place], [place] [id number] Concrete Layer: Lakhwinder Tim MD US PELVIS COMPLETEon 024 [...] Jacob Cotter MD 02/05/24 Final result Normal [facility] Urinalysis,Microon 4 Bacteria TRACE Abnormal NONE [facility] Comment on above: Performed By: #### U MICAO, UAX #### Lab [address] [place] [address] [place] [address] Concrete Layer: Lakhwinder Tim MD Epithelial cells LM Ql (Urine sed) 0 TO 2 Normal 0-25 [facility] Comment on above: Performed By: #### U MICAO, UAX #### Lab [address] [place] [address] Dr. [place], [place] [id number] Concrete Layer: Lakhwinder Tim MD Mucus Strands TRACE Abnormal NONE [facility] Comment on above: Performed By: #### U MICAO, UAX #### Lab [address] [place] [address] Dr. [place], [place] [id number] Concrete Layer: Lakhwinder Tim MD Urine RBC's 0 TO 2 Normal 0-2 [facility] Comment on above: Performed By: #### U MICAO, UAX #### Lab [address] [place], [place] [id number] Concrete Layer: Lakhwinder Tim MD Urine WBC's 0 TO 2 Normal 0-5 [facility] Comment on above: Performed By: #### U MICAO, UAX #### Lab [address] [place] [address] [place] [address] Concrete Layer: Lakhwinder Tim MD CBC with Auto Differentialon 02-03-2024 Basophils (Bld) [#/Vol] 0.03 10*3/uL [facility] Basophils/100 WBC (Bld) 0 % 0 - 2 % [facility] Eosinophils (Bld) [#/Vol] 0.13 10*3/uL [facility] Eosinophils/100 WBC (Bld) 2 % 1 - 4 % [facility] Erythrocyte distribution width (RBC) [Ratio] 14.9 % High 11.8 - 14.4 % [facility] Hematocrit (Bld) [Volume fraction] 33.2 % Low 36.3 - 47.1 % [facility] Hemoglobin (Bld) [Mass/Vol] 10.8 g/dL Low 11.9 - 15.1 g/dL [facility] Immature granulocytes (Bld) [#/Vol] [facility] Immature granulocytes/100 WBC (Bld) 0 % 0 [facility] Interpretation and review of laboratory results Abnormal [facility] Lymphocytes/100 WBC (Bld) 48 % High 24 - 43 % [facility] Lymphocytes/100 WBC (Bld) 3.20 % [facility] MCH (RBC) [Entitic mass] 27.8 pg 25.2 - 33.5 pg [facility] MCHC (RBC) [Mass/Vol] 32.5 g/dL 28.4 - 34.8 g/dL [facility] MCV (RBC) [Entitic vol] 85.6 fL 82.6 - 102.9 fL [facility] Monocytes/100 WBC (Bld) 9 % 3 - 12 % [facility] Monocytes/100 WBC (Bld) 0.63 % [facility] Neutrophils/100 WBC (Bld) 41 % 36 - 65 % [facility] Nucleated RBC/100 WBC (Bld) [Ratio] 0.0 % 0.0 per 100 WBC [facility] Platelet mean volume (Bld) [Entitic vol] 9.8 fL 8.1 - 13.5 fL [facility] Platelets (Bld) [#/Vol] 275 10*3/uL [facility] RBC (Bld) [#/Vol] 3.88 10*6/uL Low 3.95 - 5.1 1 m/uL [facility] Segmented neutrophils/100 WBC (Bld) 2.78 % [facility] WBC other (Bld) [#/Vol] 6.8 [facility] CBC with Diffon 02-03-2024 Abs. Basophil 0.03 k/uL Normal 0.00-0.20 [facility] Comment on above: Performed By: #### C P, LIP, CDP #### Lab [address] [place], [place] [id number] Concrete Layer: Lakhwinder Tim MD Abs.Imm.Granulocyte <0.03 Normal 0.00-0.30 [facility] Comment on above: Performed By: #### C P, LIP, CDP #### [facility] [address] [place], [place] [id number] Concrete Layer: Lakhwinder Tim MD Abs.Neutrophil (Seg) 2.78 k/uL Normal 1.50-8.10 [facility] Comment on above: Performed By: #### C P, LIP, CDP #### [facility] [address] [place], [place] [id number] Concrete Layer: Lakhwinder Tim MD Basophils/100 WBC (Bld) 0 % Normal 0-2 [facility] Comment on above: Performed By: #### C P, LIP, CDP #### Lab [address] [place] [address] Concrete Layer: Lakhwinder Tim MD Eosinophils (Bld) [#/Vol] 0.13 10*3/uL Normal 0.00-0.44 [facility] Comment on above: Performed By: #### C P, LIP, CDP #### Lab [address] [place] [address] Concrete Layer: Lakhwinder Tim MD Eosinophils/100 WBC (Bld) 2 % Normal 1-4 [facility] Comment on above: Performed By: #### C P, LIP, CDP #### [facility] [address] [place] [address] Concrete Layer: Lakhwinder Tim MD Erythrocyte distribution width (RBC) [Ratio] 14.9 % High 11.8-14.4 [facility] Comment on above: Performed By: #### C P, LIP, CDP #### [facility] [address] [place], [place] [address] Concrete Layer: Lakhwinder Tim MD Hematocrit (Bld) [Volume fraction] 33.2 % Low 36.3-47.1 [facility] Comment on above: Performed By: #### C P, LIP, CDP #### [address] [place], [place] [address] Concrete Layer: Lakhwinder Tim MD Hemoglobin (Bld) [Mass/Vol] 10.8 g/dL Low 11.9-15.1 [facility] Comment on above: Performed By: #### C P, LIP, CDP #### [address] [place], [place] [address] Concrete Layer: Lakhwinder Tim MD Immature granulocytes/100 WBC (Bld) 0 % Normal 0 [facility] Comment on above: Performed By: #### C P, LIP, CDP #### Lab [address] [place] [address] Dr. [place], [place] [address] Concrete Layer: Lakhwinder Tim MD Lymphocytes (Bld) [#/Vol] 3.20 10*3/uL Normal 1.10-3.70 [facility] Comment on above: Performed By: #### C P, LIP, CDP #### [facility] [address] [place], [facility]83 Concrete Layer: Lakhwinder Tim MD Lymphocytes/100 WBC (Bld) 48 % High 24-43 [facility] Comment on above: Performed By: #### C P, LIP, CDP #### [facility] [address] [place], [place] [id number] Concrete Layer: Lakhwinder Tim MD MCH (RBC) [Entitic mass] 27.8 pg Normal 25.2-33.5 [facility] Comment on above: Performed By: #### C P, LIP, CDP #### [address] [place], [facility]83 Concrete Layer: Lakhwinder Tim MD MCHC (RBC) [Mass/Vol] 32.5 g/dL Normal 28.4-34.8 [facility] Comment on above: Performed By: #### C P, LIP, CDP #### [address] [place] [address] Concrete Layer: Lakhwinder Tim MD MCV (RBC) [Entitic vol] 85.6 fL Normal 82.6-102.9 [facility] Comment on above: Performed By: #### C P, LIP, CDP #### [address] [place], [place] [address] Concrete Layer: Lakhwinder Tim MD Monocytes (Bld) [#/Vol] 0.63 10*3/uL Normal 0.10-1.20 [facility] Comment on above: Performed By: #### C P, LIP, CDP #### [address] [place], [place] [address] Concrete Layer: Lakhwinder Tim MD Monocytes/100 WBC (Bld) 9 % Normal 3-12 [facility] Comment on above: Performed By: #### C P, LIP, CDP #### [address] [place] [id number] Concrete Layer: Lakhwinder Tim MD Neutrophil (Seg) 41 % Normal 36-65 [facility] Comment on above: Performed By: #### C P, LIP, CDP #### [address] [place], [place] [address] Concrete Layer: Lakhwinder Tim MD NRBC Automated 0.0 per 100 WBC Normal 0.0 [facility] Comment on above: Performed By: #### C P, LIP, CDP #### [address] [place], [facility]83 Concrete Layer: Lakhwinder Tim MD Platelet mean volume (Bld) [Entitic vol] 9.8 fL Normal 8.1-13.5 [facility] Comment on above: Performed By: #### C P, LIP, CDP #### [address] [place], [facility] Concrete Layer: Lakhwinder Tim MD Platelets (Bld) [#/Vol] 275 10*3/uL Normal 138-453 [facility] Comment on above: Performed By: #### C P, LIP, CDP #### [address] [place], [facility]83 Concrete Layer: Lakhwinder Tim MD RBC (Bld) [#/Vol] 3.88 10*6/uL Low 3.95-5.11 [facility] Comment on above: Performed By: #### C P, LIP, CDP #### [address] [place], [facility]83 Concrete Layer: Lakhwinder Tim MD WBC (Bld) [#/Vol] 6.8 10*3/uL Normal 3.5-11.3 [facility] Comment on above: Performed By: #### C P, LIP, CDP #### [address] [place], [facility]83 Concrete Layer: Lakhwinder Tim MD CT ABDOMEN PELVIS W [...] Tres Barillas MD 02/03/24 Final result Normal [facility] CT Abdomen and Pelvis W cont rast Alexsander 02-03-2024 Multiloculated right adnexal cystic mass with inflammatory change. Recommend pelvic ultrasound. [facility] RIS CONSOLIDATED EXAMINATION: CT OF THE [...] no pathologic adenopathy. Bones/Soft Tissues: Normal [facility] Tres Barillas MD - 02/03/2024 EXAMINATION: CT [...] mass with inflammatory change. Recommend pelvic ultrasound. [facility] Radiology Study observation (narrative) [facility] CT Abdomen and Pelvis W cont rast IVOrdered By: Tres Barillas on 02-03-2024 [facility] Work Phone: Comp Metabolic Profon 2023 Albumin [Mass/Vol] 4.1 g/dL Normal 3.5-5.2 [facility] Comment on above: Performed By: #### C P, LIP, CDP #### Lab [address] [place], [place] [id number] Concrete Layer: Lakhwinder Tim MD Albumin/Glob Ratio 1.1 Normal 1.0-2.5 [facility] Comment on above: Performed By: #### C P, LIP, CDP #### Lab [address] [place] [address] Concrete Layer: Lakhwinder Tmi MD Alkaline Phos 64 U/L Normal 35-104 [facility] Comment on above: Performed By: #### C P, LIP, CDP #### Lab [address] [place] [address] Concrete Layer: Lakhwinder Tim MD ALT [Catalytic activity/Vol] 7 U/L Normal 5-33 [facility] Comment on above: Performed By: #### C P, LIP, CDP #### [address] [place] [address] Concrete Layer: Lakhwinder Tim MD Anion gap [Moles/Vol] 11 mmol/L Normal 9-17 [facility] Comment on above: Performed By: #### C P, LIP, CDP #### Lab [address] [place] [address] Concrete Layer: Lakhwinder Tim MD AST [Catalytic activity/Vol] 12 U/L Normal <32 [facility] Comment on above: Performed By: #### C P, LIP, CDP #### Lab [address] [place] [address] Concrete Layer: Lakhwinder Tim MD Bilirubin [Mass/Vol] 0.2 mg/dL Low 0.3-1.2 [facility] Comment on above: Performed By: #### C P, LIP, CDP #### Lab [address] [place], [place] [id number] Concrete Layer: Lakhwinder Tim MD BUN/CRE Ratio 20 Normal 9-20 [facility] Comment on above: Performed By: #### C P, LIP, CDP #### Lab [address] [place], [place] [id number] Concrete Layer: Lakhwinder Tim MD Calcium [Mass/Vol] 8.9 mg/dL Normal 8.6-10.4 [facility] Comment on above: Performed By: #### C P, LIP, CDP #### Lab [address] [place], [place] [id number] Concrete Layer: Lakhwinder Tim MD Chloride [Moles/Vol] 99 mmol/L Normal 98-107 [facility] Comment on above: Performed By: #### C P, LIP, CDP #### Lab [address] [place], [place] [id number] Concrete Layer: Lakhwinder Tim MD CO2 [Moles/Vol] 28 mmol/L Normal 20-31 [facility] Comment on above: Performed By: #### C P, LIP, CDP #### Lab [address] [place], [place] [id number] Concrete Layer: Lakhwinder Tim MD Creatinine [Mass/Vol] 0.6 mg/dL Normal 0.5-0.9 [facility] Comment on above: Performed By: #### C P, LIP, CDP #### Lab [address] [place] [address] Concrete Layer: Lakhwinder Tim MD GFR/1.73 sq M.predicted among non-blacks MDRD (S/P/Bld) [Vol rate/Area] mL/min/{1.73_m2} Normal >60 [facility] Comment on above: Result Comment: These results [...] By: #### C P, LIP, CDP #### Lab [address] [place] [address] Dr. [place], [facility]83 Concrete Layer: Lakhwinder Tim MD Glucose [Mass/Vol] 86 mg/dL Normal 70-99 [facility] Comment on above: Performed By: #### C P, LIP, CDP #### [address] [place], [facility]83 Concrete Layer: Lakhwinder Tim MD Potassium [Moles/Vol] 3.8 mmol/L Normal 3.7-5.3 [facility] Comment on above: Performed By: #### C P, LIP, CDP #### [address] [place], [place] [id number] Concrete Layer: Lakhwinder Tim MD Protein [Mass/Vol] 7.8 g/dL Normal 6.4-8.3 [facility] Comment on above: Performed By: #### C P, LIP, CDP #### [address] [place], [place] [id number] Concrete Layer: Lakhwinder Tim MD Sodium [Moles/Vol] 138 mmol/L Normal 135-144 [facility] Comment on above: Performed By: #### C P, LIP, CDP #### [address] [place] [address] Concrete Layer: Lakhwinder Tim MD Urea nitrogen [Mass/Vol] 12 mg/dL Normal 6-20 [facility] Comment on above: Performed By: #### C P, LIP, CDP #### Lab [address] [place] [address] Concrete Layer: Lakhwinder Tim MD [facility] Metabolic Pane [facility] 02-03-2024 Albumin [Mass/Vol] 4.1 g/dL 3.5 - 5.2 g/dL [facility] Albumin/Globulin [Mass ratio] 1.1 {ratio} 1.0 - 2.5 [facility] ALP [Catalytic activity/Vol] 64 U/L 35 - 104 U/L [facility] ALT [Catalytic activity/Vol] 7 U/L 5 - 33 U/L [facility] Anion gap [Moles/Vol] 11 mmol/L 9 - 17 mmol/L [facility] AST [Catalytic activity/Vol] 12 U/L NINF - 32 U/L [facility] Bilirubin [Mass/Vol] 0.2 mg/dL Low 0.3 - 1 .2 mg/dL [facility] Calcium [Mass/Vol] 8.9 mg/dL 8.6 - 10. 4 mg/dL [facility] Chloride [Moles/Vol] 99 mmol/L 98 - 10 7 mmol/L [facility] CO2 [Moles/Vol] 28 mmol/L 20 - 31 mmol/L [facility] Creatinine [Mass/Vol] 0.6 mg/dL 0.5 - 0.9 mg/dL [facility] Est, Glom Filt Rate - PINF [facility] Comment on above: These results [...] [Mass/Vol] 86 mg/dL 70 - 99 mg/dL [facility] Interpretation and review of laboratory results Abnormal [facility] Potassium [Moles/Vol] 3.8 mmol/L 3.7 - 5.3 mmol/L [facility] Protein [Mass/Vol] 7.8 g/dL 6.4 - 8.3 g/dL [facility] Sodium [Moles/Vol] 138 mmol/L 135 - 144 mmol/L [facility] Urea nitrogen [Mass/Vol] 12 mg/dL 6 - 20 mg/dL [facility] Urea nitrogen/Creatinine [Mass ratio] 20 mg/mg 9 - 20 [facility] HCG, ,Urineon 02-02 Beta HCG ( test) Ql (U) Negative Normal NEG [facility] Comment on above: Result Comment: Spec imens with hCG levels near the threshold of the test (25 mIU/mL) may give a negative or indeterminate result. In such cases, another test should be performed with a new specimen in 48-72 hours. If early is suspected clinically in this setting, correlation with quantitative serum b-hCG level is suggested. [facility] has confirmed the use of plasma for this test. This has not been cleared or approved by the U.S. Food and Drug Administration. The FDA has determined that such clearance is not necessary. Performed By: #### C P, LIP, CDP #### Lab [address] [place] [address] Concrete Layer: Lakhwinder Tim MD Lactic Acidon 02-03-2024 Lactate (BldV) [Moles/Vol] 1.0 mmol/L 0.5 - 2.2 mmol/L [facility] Lactate [Moles/Vol] 1.0 mmol/L Normal 0.5-2.2 [facility] Comment on above: Performed By: #### L ACTIC #### Lab [address] [place] [address] Concrete Layer: Lakhwinder Tim MD Lipaseon 02-03-2024 Lipase [Catalytic activity/Vol] 29 U/L 13 - 60 U/L [facility] Lipase [Catalytic activity/Vol] 29 U/L Normal 13-60 [facility] Comment on above: Performed By: #### C P, LIP, CDP #### Lab [address] [place] [address] Concrete Layer: Lakhwinder Tim MD No Panel Informationon 02-02 [facility] , Urineon HCG ( test) Ql (U) Negative NEGATIVE [facility] Comment on above: Specimens with hCG l evels near the threshold of the test (25 mIU/mL) may give a negative or indeterminate result. In such cases, another test should be performed with a new specimen in 48-72 hours. If early is suspected clinically in this setting, correlation with quantitative serum b-hCG level is suggested. [facility] has confirmed the use of plasma for this test. This has not been cleared or approved by the U.S. Food and Drug Administration. The FDA has determined that such clearance is not necessary. [facility] Urinalysis w/ Microon 2023 Bacteria TRACE Abnormal NONE [facility] Comment on above: Performed By: #### C P, LIP, CDP #### Lab [address] [place] [address] [place] [address] Concrete Layer: Lakhwinder Tim MD Bilirubin, SemiQt,Ur Negative Normal NEG [facility] Comment on above: Performed By: #### C P, LIP, CDP #### Lab [address] [place] [address] [place] [address] Concrete Layer: Lakhwinder Tim MD Blood, Urine Negative Normal NEG [facility] Comment on above: Performed By: #### C P, LIP, CDP #### Lab [address] [place] [address] [place] [address] Concrete Layer: Lakhwinder Tim MD Clarity (U) Clear Normal CLEAR [facility] Comment on above: Performed By: #### C P, LIP, CDP #### Lab [address] [place] [address] Concrete Layer: Lakhwinder Tim MD Color (U) Yellow Normal YEL [facility] Comment on above: Performed By: #### C P, LIP, CDP #### Lab [address] [place], [place] [id number] Concrete Layer: Lakhwinder Tim MD Epithelial cells LM Ql (Urine sed) 2 TO 5 Normal 0-25 [facility] Comment on above: Performed By: #### C P, LIP, CDP #### Lab [address] [place], [place] [phone] Concrete Layer: Lakhwinder Tim MD Glucose Ql (U) Negative Normal NEG [facility] Comment on above: Performed By: #### C P, LIP, CDP #### Lab [address] [place] [address] Concrete Layer: Lakhwinder Tim MD Ketones Ql (U) Negative Normal NEG [facility] Comment on above: Performed By: #### C P, LIP, CDP #### Lab [address] [place], [place] [id number] Concrete Layer: Lakhwinder Tim MD Leukocyte esterase Test strip Ql (U) Negative Normal NEG [facility] Comment on above: Performed By: #### C P, LIP, CDP #### [facility] [address] [place] [address] Concrete Layer: Lakhwinder Tim MD Mucus Strands 2+ Abnormal NONE [facility] Comment on above: Performed By: #### C P, LIP, CDP #### Lab [address] [place], [place] [id number] Concrete Layer: Lakhwinder Tim MD Nitrite,Ur Negative Normal NEG [facility] Comment on above: Performed By: #### C P, LIP, CDP #### Lab [address] [place], [place] [id number] Concrete Layer: Lakhwinder Tim MD PH,Ur 6.0 Normal 5.0-9.0 [facility] Comment on above: Performed By: #### C P, LIP, CDP #### Lab [address] [place] [address] Dr. [place], [place] [id number] Concrete Layer: Lakhwinder Tim MD Protein Ql (U) Negative Normal NEG [facility] Comment on above: Performed By: #### C P, LIP, CDP #### Lab [address] [place] [address] Dr. [place], [place] [id number] Concrete Layer: Lakhwinder Tim MD Spec. [place],Ur >1.030 High 1.010-1.020 [facility] Comment on above: Performed By: #### C P, LIP, CDP #### [address] [place], [place] [address] Concrete Layer: Lakhwinder Tim MD Urine RBC's 0 TO 2 Normal 0-2 [facility] Comment on above: Performed By: #### C P, LIP, CDP #### [address] [place], [place] [id number] Concrete Layer: Lakhwinder Tim MD Urine WBC's 0 TO 2 Normal 0-5 [facility] Comment on above: Performed By: #### C P, LIP, CDP #### [address] [place], [place] [id number] Concrete Layer: Lakhwinder Tim MD Urobilinogen,Ur Normal Normal 0.0-1.0 [facility] Comment on above: Performed By: #### C P, LIP, CDP #### [address] [place], [place] [id number] Concrete Layer: Lakhwinder Tim MD Urinalysis with Microscopico n 02-03-2024 Bacteria LM Ql (Urine sed) TRACE Abnormal None [facility] Bilirubin Ql (U) Negative NEGATIVE [facility] Clarity (U) Clear Clear [facility] Color (U) Yellow Yellow [facility] Epithelial cells LM.HPF (Urine sed) [#/Area] 2 TO 5 [facility] Glucose Test strip (U) [Mass/Vol] Negative NEGATIVE mg/dL [facility] Hemoglobin Auto test strip Ql (U) Negative NEGATIVE [facility] Interpretation and review of laboratory results Abnormal [facility] Ketones (U) [Mass/Vol] Negative NEGATIVE mg/dL [facility] Leukocyte esterase Test strip Ql (U) Negative NEGATIVE [facility] Mucus Ql (Urine sed) 2+ Abnormal None [facility] Nitrite Ql (U) Negative NEGATIVE [facility] pH (U) 6.0 [pH] 5.0 - 9.0 [facility] Protein (U) [Mass/Vol] Negative NEGATIVE mg/dL [facility] RBC LM.HPF (Urine sed) [#/Area] 0 TO 2 [facility] Specific gravity (U) [Rel density] High 1.010 - 1.020 [facility] Urobilinogen Qn (U) Normal 0.0 - 1. 0 EU/dL [facility] WBC LM.HPF (Urine sed) [#/Area] 0 TO 2 [facility] CBC AND AUTO DIFFon 01-17-20 24 ABSOLUTE BASOPHIL 0.0 X10E9/L Normal 0.0-0.2 [facility] Comment on above: Performed By: #### 2 823-3 #### [facility] ([id number]) [address], [address] [place] [address] ABSOLUTE NEUTROPHIL 7.1 X10E9/L High 1.5-6.6 [facility] Comment on above: Performed By: #### 2 823-3 #### [facility] ([id number]) [address], [address] [place] [address] Basophils/100 WBC (Bld) 0.2 % Normal [facility] Comment on above: Performed By: #### 2 823-3 #### [facility] ([id number]) [address], [address] [place] [address] Eosinophils (Bld) [#/Vol] 0.1 10*3/uL Normal 0.0-0.4 [facility] Comment on above: Performed By: #### 2 823-3 #### [facility] ([id number]) [address], [address] [place] [address] Eosinophils/100 WBC (Bld) 1.4 % Normal [facility] Comment on above: Performed By: #### 2 823-3 #### [facility] ([id number]) [address] [place] [address] Erythrocyte distribution width (RBC) [Ratio] 15.3 % High 11.5-15.0 [facility] Comment on above: Performed By: #### 2 823-3 #### [facility] ([id number]) [address] [place] [address] Hematocrit (Bld) [Volume fraction] 30.6 % Low 35-47 [facility] Comment on above: Performed By: #### 2 823-3 #### [facility] ([id number]) [address] [place] [address] Hemoglobin (Bld) [Mass/Vol] 10.1 g/dL Low 11.7-15.5 [facility] Comment on above: Performed By: #### 2 823-3 #### [facility] ([id number]) [address], [address] [place] [address] Lymphocytes (Bld) [#/Vol] 1.8 10*3/uL Normal 1.0-3.5 [facility] Comment on above: Performed By: #### 2 823-3 #### [facility] ([id number]) [address], [address] [place] [address] Lymphocytes/100 WBC (Bld) 18.1 % Normal [facility] Comment on above: Performed By: #### 2 823-3 #### [facility] ([id number]) [address] [place] [address] MCH (RBC) [Entitic mass] 27.7 pg Normal 27-34 [facility] Comment on above: Performed By: #### 2 823-3 #### [facility] ([id number]) [address] [place] [address] MCHC (RBC) [Mass/Vol] 32.9 g/dL Normal 32-36 [facility] Comment on above: Performed By: #### 2 823-3 #### [facility] ([id number]) [address] [place] [address] MCV (RBC) [Entitic vol] 84 fL Normal 80-100 [facility] Comment on above: Performed By: #### 2 823-3 #### [facility] ([id number]) [address] [place] [address] Monocytes (Bld) [#/Vol] 1.0 10*3/uL High 0-0.9 [facility] Comment on above: Performed By: #### 2 823-3 #### [facility] ([id number]) [address] [place] [address] Monocytes/100 WBC (Bld) 9.6 % Normal [facility] Comment on above: Performed By: #### 2 823-3 #### [facility] ([id number]) [address] [place] [address] Neutrophils/100 WBC (Bld) 70.7 % Normal [facility] Comment on above: Performed By: #### 2 823-3 #### [facility] ([id number]) [address], [address] [place] [address] Platelet mean volume (Bld) [Entitic vol] 7.8 fL Normal 7-12 [facility] Comment on above: Performed By: #### 2 823-3 #### [facility] ([id number]) [address], [address] [place] [address] Platelets (Bld) [#/Vol] 404 10*3/uL Normal 150-450 [facility] Comment on above: Performed By: #### 2 823-3 #### [facility] ([id number]) [address], [address] [place] [address] RBC COUNT 3.64 X10E12/L Low 3.80-5.20 [facility] Comment on above: Performed By: #### 2 823-3 #### [facility] ([id number]) [address], [address] [place] [address] WBC (Bld) [#/Vol] 10.1 10*3/uL Normal 4.0-11.0 [facility] Comment on above: Performed By: #### 2 823-3 #### [facility] ([id number]) [address], [address] [place] [address] COMPREHENSIVE METABOLIC PANE Blaine 01-17-2024 Albumin [Mass/Vol] 3.0 g/dL Low 3.2-5.3 [facility] Comment on above: Performed By: #### 2 823-3 #### [facility] ([id number]) [address], [address] [place] [address] ALP [Catalytic activity/Vol] 76 U/L Normal 39-130 [facility] Comment on above: Performed By: #### 2 823-3 #### [facility] ([id number]) [address], [address] [place] [address] ALT [Catalytic activity/Vol] 10 U/L Normal 0-31 [facility] Comment on above: Performed By: #### 2 823-3 #### [facility] ([id number]) [address], [address] [place] [address] Anion gap [Moles/Vol] 9 mmol/L Normal 5-15 [facility] Comment on above: Performed By: #### 2 823-3 #### [facility] ([id number]) [address] [place] [address] AST [Catalytic activity/Vol] 10 U/L Normal 0-41 [facility] Comment on above: Performed By: #### 2 823-3 #### [facility] ([id number]) [address], [address] [place] [address] Bilirubin [Mass/Vol] 0.2 mg/dL Low 0.3-1.2 [facility] Comment on above: Performed By: #### 2 823-3 #### [facility] ([id number]) [address], [address] [place] [address] Calcium [Mass/Vol] 8.6 mg/dL Normal 8.5-10.5 [facility] Comment on above: Performed By: #### 2 823-3 #### [facility] ([id number]) [address] [place] [address] Chloride [Moles/Vol] 99 mmol/L Normal 98-109 [facility] Comment on above: Performed By: #### 2 823-3 #### [facility] ([id number]) [address] [place] [address] CO2 [Moles/Vol] 28 mmol/L Normal 22-32 [facility] Comment on above: Performed By: #### 2 823-3 #### [facility] ([id number]) [address], [address] [place] [address] Creatinine [Mass/Vol] 0.44 mg/dL Normal 0.40-1.00 [facility] Comment on above: Result Comment: METH OD TRACEABLE TO IDMS STANDARD Performed By: #### 2 823-3 #### [facility] ([id number]) [address], [address] [place] [address] eGFR (CKD-EPI) NON-RACE DEPENDENT >90 Normal >59 [facility] Comment on above: Result Comment: Reported eGFR is based on the CKD-EPI 2020 equation that does not use a race coefficient. Performed By: #### 2 823-3 #### [facility] ([id number]) [address], [address] [place] [address] Glucose [Mass/Vol] 87 mg/dL Normal 65-99 [facility] Comment on above: Performed By: #### 2 823-3 #### [facility] ([id number]) [address] [place] [address] Potassium [Moles/Vol] 3.9 mmol/L Normal 3.5-5.0 [facility] Comment on above: Performed By: #### 2 823-3 #### [facility] ([id number]) [address], [address] [place] [address] Protein [Mass/Vol] 6.3 g/dL Normal 6.0-8.0 [facility] Comment on above: Performed By: #### 2 823-3 #### [facility] ([id number]) [address], [address] [place] [address] Sodium [Moles/Vol] 136 mmol/L Normal 134-146 [facility] Comment on above: Performed By: #### 2 823-3 #### [facility] ([id number]) [address], [address] [place] [address] Urea nitrogen [Mass/Vol] 5 mg/dL Normal 5-23 [facility] Comment on above: Performed By: #### 2 823-3 #### [facility] ([id number]) [address] [place] [address] CBC AND AUTO DIFFon 01-16-20 24 ABSOLUTE BASOPHIL 0.0 X10E9/L Normal 0.0-0.2 [facility] Comment on above: Performed By: #### 2 823-3 #### [facility] ([id number]) [address], [address] [place] [address] ABSOLUTE NEUTROPHIL 8.2 X10E9/L High 1.5-6.6 [facility] Comment on above: Performed By: #### 2 823-3 #### [facility] ([id number]) [address] [place] [address] Basophils/100 WBC (Bld) 0.2 % Normal [facility] Comment on above: Performed By: #### 2 823-3 #### [facility] ([id number]) [address] [place] [address] Eosinophils (Bld) [#/Vol] 0.0 10*3/uL Normal 0.0-0.4 [facility] Comment on above: Performed By: #### 2 823-3 #### [facility] ([id number]) [address], [address] [place] [address] Eosinophils/100 WBC (Bld) 0.1 % Normal [facility] Comment on above: Performed By: #### 2 823-3 #### [facility] ([id number]) [address] [place] [address] Erythrocyte distribution width (RBC) [Ratio] 15.3 % High 11.5-15.0 [facility] Comment on above: Performed By: #### 2 823-3 #### [facility] ([id number]) [address], [address] [place] [address] Hematocrit (Bld) [Volume fraction] 31.5 % Low 35-47 [facility] Comment on above: Performed By: #### 2 823-3 #### [facility] ([id number]) [address], [address] [place] [address] Hemoglobin (Bld) [Mass/Vol] 10.5 g/dL Low 11.7-15.5 [facility] Comment on above: Performed By: #### 2 823-3 #### [facility] ([id number]) [address], [address] [place] [address] Lymphocytes (Bld) [#/Vol] 1.2 10*3/uL Normal 1.0-3.5 [facility] Comment on above: Performed By: #### 2 823-3 #### [facility] ([id number]) [address], [address] [place] [address] Lymphocytes/100 WBC (Bld) 12.0 % Normal [facility] Comment on above: Performed By: #### 2 823-3 #### [facility] ([id number]) [address], [address] [place] [address] MCH (RBC) [Entitic mass] 28.0 pg Normal 27-34 [facility] Comment on above: Performed By: #### 2 823-3 #### [facility] ([id number]) [address], [address] [place] [address] MCHC (RBC) [Mass/Vol] 33.3 g/dL Normal 32-36 [facility] Comment on above: Performed By: #### 2 823-3 #### [facility] ([id number]) [address], [address] [place] [address] MCV (RBC) [Entitic vol] 84 fL Normal 80-100 [facility] Comment on above: Performed By: #### 2 823-3 #### [facility] ([id number]) [address], [address] [place] [address] Monocytes (Bld) [#/Vol] 0.7 10*3/uL Normal 0-0.9 [facility] Comment on above: Performed By: #### 2 823-3 #### [facility] ([id number]) [address], [address] [place] [address] Monocytes/100 WBC (Bld) 6.5 % Normal [facility] Comment on above: Performed By: #### 2 823-3 #### [facility] ([id number]) [address], [facility] [address] [place] [address] Neutrophils/100 WBC (Bld) 81.2 % Normal [facility] Comment on above: Performed By: #### 2 823-3 #### [facility] ([id number]) [address] [place] [address] Platelet mean volume (Bld) [Entitic vol] 8.8 fL Normal 7-12 [facility] Comment on above: Performed By: #### 2 823-3 #### [facility] ([id number]) [address] [place] [address] Platelets (Bld) [#/Vol] 341 10*3/uL Normal 150-450 [facility] Comment on above: Performed By: #### 2 823-3 #### [facility] ([id number]) [address], [address] [place] [address] RBC COUNT 3.75 X10E12/L Low 3.80-5.20 [facility] Comment on above: Performed By: #### 2 823-3 #### [facility] ([id number]) [address], [address] [place] [address] WBC (Bld) [#/Vol] 10.1 10*3/uL Normal 4.0-11.0 [facility] Comment on above: Performed By: #### 2 823-3 #### [facility] ([id number]) [address], [address] [place] [address] COMPREHENSIVE METABOLIC PANE Blaine 01-16-2024 Albumin [Mass/Vol] 3.2 g/dL Normal 3.2-5.3 [facility] Comment on above: Performed By: #### 2 823-3 #### [facility] ([id number]) [address], [address] [place] [address] ALP [Catalytic activity/Vol] 95 U/L Normal 39-130 [facility] Comment on above: Performed By: #### 2 823-3 #### [facility] ([id number]) [address], [address] [place] [address] ALT [Catalytic activity/Vol] 12 U/L Normal 0-31 [facility] Comment on above: Performed By: #### 2 823-3 #### [facility] ([id number]) [address], [address] [place] [address] Anion gap [Moles/Vol] 14 mmol/L Normal 5-15 [facility] Comment on above: Performed By: #### 2 823-3 #### [facility] ([id number]) [address], [address] [place] [address] AST [Catalytic activity/Vol] 9 U/L Normal 0-41 [facility] Comment on above: Performed By: #### 2 823-3 #### [facility] ([id number]) [address], [address] [place] [address] Bilirubin [Mass/Vol] 0.3 mg/dL Normal 0.3-1.2 [facility] Comment on above: Performed By: #### 2 823-3 #### [facility] ([id number]) [address] [place] [address] Calcium [Mass/Vol] 8.9 mg/dL Normal 8.5-10.5 [facility] Comment on above: Performed By: #### 2 823-3 #### [facility] ([id number]) [address], [address] [place] [address] Chloride [Moles/Vol] 98 mmol/L Normal 98-109 [facility] Comment on above: Performed By: #### 2 823-3 #### [facility] ([id number]) [address] [place] [address] CO2 [Moles/Vol] 24 mmol/L Normal 22-32 [facility] Comment on above: Performed By: #### 2 823-3 #### [facility] ([id number]) [address], [address] [place] [address] Creatinine [Mass/Vol] 0.35 mg/dL Low 0.40-1.00 [facility] Comment on above: Result Comment: METH OD TRACEABLE TO IDMS STANDARD Performed By: #### 2 823-3 #### [facility] ([id number]) [address], [address] [place] [address] eGFR (CKD-EPI) NON-RACE DEPENDENT >90 Normal >59 [facility] Comment on above: Result Comment: Reported eGFR is based on the CKD-EPI 2020 equation that does not use a race coefficient. Performed By: #### 2 823-3 #### [facility] ([id number]) [address], [address] [place] [address] Glucose [Mass/Vol] 82 mg/dL Normal 65-99 [facility] Comment on above: Performed By: #### 2 823-3 #### [facility] ([id number]) [address], [address] [place] [address] Potassium [Moles/Vol] 3.7 mmol/L Normal 3.5-5.0 [facility] Comment on above: Performed By: #### 2 823-3 #### [facility] ([id number]) [address], [address] [place] [address] Protein [Mass/Vol] 7.0 g/dL Normal 6.0-8.0 [facility] Comment on above: Performed By: #### 2 823-3 #### [facility] ([id number]) [address] [place] [address] Sodium [Moles/Vol] 136 mmol/L Normal 134-146 [facility] Comment on above: Performed By: #### 2 823-3 #### [facility] ([id number]) [address], [address] [place] [address] Urea nitrogen [Mass/Vol] 5 mg/dL Normal 5-23 [facility] Comment on above: Performed By: #### 2 823-3 #### [facility] ([id number]) [address], [address] [place] [address] MAGNESIUMon 01-16-2024 Magnesium [Mass/Vol] 1.8 mg/dL Normal 1.8-2.6 [facility] Comment on above: Performed By: #### 2 823-3 #### [facility] ([id number]) [address], [address] [place] [address] PHOSPHORUSon 01-16-2024 Phosphate [Mass/Vol] 3.3 mg/dL Normal 2.4-4.9 [facility] Comment on above: Performed By: #### 2 823-3 #### [facility] ([id number]) [address] [place] [address] POTASSIUMon 01-16-2024 Potassium [Moles/Vol] 3.5 mmol/L Normal 3.5-5.0 [facility] Comment on above: Performed By: #### 2 823-3 #### [facility] ([id number]) [address], [address] [place] [address] Potassium [Moles/Vol] 3.8 mmol/L Normal 3.5-5.0 [facility] Comment on above: Performed By: #### C RT #### [facility] ([id number]) [address] [place] [address] ANAEROBE CULTUREon 4 Bacteria identified Anaer cx Nom (Unsp spec) CULTURE RESULTS NO GROWTH 5 DAYS Normal [facility] Comment on above: Performed By: #### 2 823-3 #### [facility] ([id number]) [address] [place] [address] ASPIRATE CULTUREon 4 Bacteria identified Aer cx Nom (Asp) GRAM STAIN 10 to 24 WHITE BLOOD CELLS/LPF 0 to 1 SQUAMOUS EPITHELIAL CELLS/LPF NO ORGANISMS SEEN CULTURE RESULTS NO GROWTH 5 DAYS Normal [facility] Comment on above: Performed By: #### C RT #### [facility] ([id number]) [address], [address] [place] [address] CBC AND AUTO DIFFon 01-15-20 24 ABSOLUTE BASOPHIL 0.0 X10E9/L Normal 0.0-0.2 [facility] Comment on above: Performed By: #### C RT #### [facility] ([id number]) [address], [address] [place] [address] ABSOLUTE NEUTROPHIL 8.6 X10E9/L High 1.5-6.6 [facility] Comment on above: Performed By: #### C RT #### [facility] ([id number]) [address], [address] [place] [address] Basophils/100 WBC (Bld) 0.2 % Normal [facility] Comment on above: Performed By: #### C RT #### [facility] ([id number]) [address], [address] [place] [address] Eosinophils (Bld) [#/Vol] 0.1 10*3/uL Normal 0.0-0.4 [facility] Comment on above: Performed By: #### C RT #### [facility] ([id number]) [address], [address] [place] [address] Eosinophils/100 WBC (Bld) 0.9 % Normal [facility] Comment on above: Performed By: #### C RT #### [facility] ([id number]) [address], [address] [place] [address] Erythrocyte distribution width (RBC) [Ratio] 14.9 % Normal 11.5-15.0 [facility] Comment on above: Performed By: #### C RT #### [facility] ([id number]) [address], [address] [place] [address] Hematocrit (Bld) [Volume fraction] 27.7 % Low 35-47 [facility] Comment on above: Performed By: #### C RT #### [facility] ([id number]) [address], [address] [place] [address] Hemoglobin (Bld) [Mass/Vol] 9.1 g/dL Low 11.7-15.5 [facility] Comment on above: Performed By: #### C RT #### [facility] ([id number]) [address] [place] [address] Lymphocytes (Bld) [#/Vol] 1.3 10*3/uL Normal 1.0-3.5 [facility] Comment on above: Performed By: #### C RT #### [facility] ([id number]) [address] [place] [address] Lymphocytes/100 WBC (Bld) 11.2 % Normal [facility] Comment on above: Performed By: #### C RT #### [facility] ([id number]) [address], [address] [place] [address] MCH (RBC) [Entitic mass] 27.3 pg Normal 27-34 [facility] Comment on above: Performed By: #### C RT #### [facility] ([id number]) [address] [place] [address] MCHC (RBC) [Mass/Vol] 32.7 g/dL Normal 32-36 [facility] Comment on above: Performed By: #### C RT #### [facility] ([id number]) [address] [place] [address] MCV (RBC) [Entitic vol] 83 fL Normal 80-100 [facility] Comment on above: Performed By: #### C RT #### [facility] ([id number]) [address] [facility] [address] Monocytes (Bld) [#/Vol] 1.2 10*3/uL High 0-0.9 [facility] Comment on above: Performed By: #### C RT #### [facility] ([id number]) [address] [place] [address] Monocytes/100 WBC (Bld) 10.5 % Normal [facility] Comment on above: Performed By: #### C RT #### [facility] ([id number]) [address] [place] [address] Neutrophils/100 WBC (Bld) 77.2 % Normal [facility] Comment on above: Performed By: #### C RT #### [facility] ([id number]) [address] [place] [address] Platelet mean volume (Bld) [Entitic vol] 8.4 fL Normal 7-12 [facility] Comment on above: Performed By: #### C RT #### [facility] ([id number]) [address] [place] [address] Platelets (Bld) [#/Vol] 251 10*3/uL Normal 150-450 [facility] Comment on above: Performed By: #### C RT #### [facility] ([id number]) [address] [place] [address] RBC COUNT 3.32 X10E12/L Low 3.80-5.20 [facility] Comment on above: Performed By: #### C RT #### [facility] ([id number]) [address] [place] [address] WBC (Bld) [#/Vol] 11.2 10*3/uL High 4.0-11.0 [facility] Comment on above: Performed By: #### C RT #### [facility] ([id number]) [address] [place] [address] COMPREHENSIVE METABOLIC PANE Blaine 01-15-2024 Albumin [Mass/Vol] 3.0 g/dL Low 3.2-5.3 [facility] Comment on above: Performed By: #### C RT #### [facility] ([id number]) [address] [place] [address] ALP [Catalytic activity/Vol] 97 U/L Normal 39-130 [facility] Comment on above: Performed By: #### C RT #### [facility] ([id number]) [address] [place] [address] ALT [Catalytic activity/Vol] 14 U/L Normal 0-31 [facility] Comment on above: Performed By: #### C RT #### [facility] ([id number]) [address] [place] [address] Anion gap [Moles/Vol] 10 mmol/L Normal 5-15 [facility] Comment on above: Performed By: #### C RT #### [facility] ([id number]) [address] [place] [address] AST [Catalytic activity/Vol] 13 U/L Normal 0-41 [facility] Comment on above: Performed By: #### C RT #### [facility] ([id number]) [address] [place] [address] Bilirubin [Mass/Vol] 0.7 mg/dL Normal 0.3-1.2 [facility] Comment on above: Performed By: #### C RT #### [facility] ([id number]) [address] [place] [address] Calcium [Mass/Vol] 8.4 mg/dL Low 8.5-10.5 [facility] Comment on above: Performed By: #### C RT #### [facility] ([id number]) [address] [place] [address] Chloride [Moles/Vol] 101 mmol/L Normal 98-109 [facility] Comment on above: Performed By: #### C RT #### [facility] ([id number]) [address] [place] [address] CO2 [Moles/Vol] 28 mmol/L Normal 22-32 [facility] Comment on above: Performed By: #### C RT #### [facility] ([id number]) [address] [place] [address] Creatinine [Mass/Vol] 0.41 mg/dL Normal 0.40-1.00 [facility] Comment on above: Result Comment: METH OD TRACEABLE TO IDMS STANDARD Performed By: #### C RT #### [facility] ([id number]) [address] [place] [address] eGFR (CKD-EPI) NON-RACE DEPENDENT >90 Normal >59 [facility] Comment on above: Result Comment: Reported eGFR is based on the CKD-EPI 2020 equation that does not use a race coefficient. Performed By: #### C RT #### [facility] ([id number]) [address] [place] [address] Glucose [Mass/Vol] 85 mg/dL Normal 65-99 [facility] Comment on above: Performed By: #### C RT #### [facility] ([id number]) [address] [address] [place] [address] Potassium [Moles/Vol] 3.4 mmol/L Low 3.5-5.0 [facility] Comment on above: Performed By: #### C RT #### [facility] ([id number]) [address] [address] [place] [address] Protein [Mass/Vol] 6.0 g/dL Normal 6.0-8.0 [facility] Comment on above: Performed By: #### C RT #### [facility] ([id number]) [address] [place] [address] Sodium [Moles/Vol] 139 mmol/L Normal 134-146 [facility] Comment on above: Performed By: #### C RT #### [facility] ([id number]) [address] [address] [place] [address] Urea nitrogen [Mass/Vol] 2 mg/dL Low 5-23 [facility] Comment on above: Performed By: #### C RT #### [facility] ([id number]) [address] [address] [place] [address] Fibrinogen Coagulation.deriv ed (PPP) [Mass/Vol]on 01-15-2024 FIBRINOGEN 647 mg/dL High 190-480 [facility] Comment on above: Performed By: #### C RT #### [facility] ([id number]) [address] [place] [address] POTASSIUMon 01-15-2024 Potassium [Moles/Vol] 3.5 mmol/L Normal 3.5-5.0 [facility] Comment on above: Performed By: #### C RT #### [facility] ([id number]) [address], [address] [place] [address] PROTIME AND INRon 01-15-2024 INR Coag (PPP) [Relative time] 1.6 {INR} High 0.8-1.1 [facility] Comment on above: Performed By: #### C RT #### [facility] ([id number]) [address], [address] [place] [address] PT Coag (PPP) [Time] 17.8 s High 9.8-13.2 [facility] [place] Comment on above: Performed By: #### C RT #### [facility] ([id number]) [address], [address] [place] [address] aPTT Coag (PPP) [Time]on aPTT Coag (Bld) [Time] 31 s Normal 26-37 [facility] Comment on above: Performed By: #### C RT #### [facility] ([id number]) [address], [address] [place] [address] BLOOD CULTUREon 01-14-2024 Bacteria identified Aer cx Nom (Bld) SPECIMEN NOTES SUBOPTIMAL VOLUME OF BLOOD COLLECTED, RESULTS MAY BE AFFECTED. CULTURE RESULTS NO GROWTH 5 DAYS Normal [facility] Comment on above: Performed By: #### 1 7928-3 #### [facility] ([id number]) [address], [address] [place] [address] Bacteria identified Aer cx Nom (Bld) SPECIMEN NOTES SUBOPTIMAL VOLUME OF BLOOD COLLECTED, RESULTS MAY BE AFFECTED. CULTURE RESULTS NO GROWTH 5 DAYS Normal [facility] Comment on above: Performed By: #### C RT #### [facility] ([id number]) [address], [address] [place] [address] CBC AND AUTO DIFFon 01-14-20 24 ABSOLUTE BASOPHIL 0.0 X10E9/L Normal 0.0-0.2 [facility] Comment on above: Performed By: #### C BCA, 29026-6, PINR, [id number], CMP #### [facility] ([id number]) [address], [address] [place] [address] ABSOLUTE NEUTROPHIL 8.2 X10E9/L High 1.5-6.6 [facility] Comment on above: Performed By: #### C BCA, 58081-1, PINR, [id number], CMP #### [facility] ([id number]) [address], [address] [address] [place] [address] Basophils/100 WBC (Bld) 0.2 % Normal [facility] Comment on above: Performed By: #### C BCA, 27797-3, PINR, 51516-5, CMP #### [facility] ([id number]) [address], [address] [place] [address] Eosinophils (Bld) [#/Vol] 0.1 10*3/uL Normal 0.0-0.4 [facility] Comment on above: Performed By: #### C BCA, 51306-0, PINR, 79336-2, CMP #### [facility] ([id number]) [address], [address] [place] [address] Eosinophils/100 WBC (Bld) 0.9 % Normal [facility] Comment on above: Performed By: #### C BCA, 61914-5, PINR, 94902-6, CMP #### [facility] ([id number]) [address], [address] [place] [address] Erythrocyte distribution width (RBC) [Ratio] 15.2 % High 11.5-15.0 [facility] Comment on above: Performed By: #### C BCA, 44462-6, PINR, 46976-7, CMP #### [facility] ([id number]) [address] [address] [place] [address] Hematocrit (Bld) [Volume fraction] 31.0 % Low 35-47 [facility] Comment on above: Performed By: #### C BCA, 09513-9, PINR, 26633-6, CMP #### [facility] ([id number]) [address] [address] [place] [address] Hemoglobin (Bld) [Mass/Vol] 10.3 g/dL Low 11.7-15.5 [facility] Comment on above: Performed By: #### C BCA, 06922-5, PINR, 42550-8, CMP #### [facility] ([id number]) [address] [address] Lymphocytes (Bld) [#/Vol] 1.3 10*3/uL Normal 1.0-3.5 [facility] Comment on above: Performed By: #### Chantal BCA, 81281-0, PINR, 88511-7, CMP #### [facility] ([id number]) [address] [address] Lymphocytes/100 WBC (Bld) 12.6 % Normal [facility] Comment on above: Performed By: #### C BCA, 27734-6, PINR, 60162-7, CMP #### [facility] ([id number]) [address], [facility] [address] [place] [address] MCH (RBC) [Entitic mass] 27.9 pg Normal 27-34 [facility] Comment on above: Performed By: #### C BCA, 92400-1, PINR, 42272-6, CMP #### [facility] ([id number]) [address] [address] [place] [address] MCHC (RBC) [Mass/Vol] 33.2 g/dL Normal 32-36 [facility] Comment on above: Performed By: #### Chantal BCA, 15089-3, PINR, 14687-8, CMP #### [facility] ([id number]) [address], [address] [place] [address] MCV (RBC) [Entitic vol] 84 fL Normal 80-100 [facility] Comment on above: Performed By: #### Chantal BCA, 90975-3, PINR, 14759-8, CMP #### [facility] ([id number]) [address], [address] [place] [address] Monocytes (Bld) [#/Vol] 0.9 10*3/uL Normal 0-0.9 [facility] Comment on above: Performed By: #### Chantal BISHOP, 87487-3, PINR, 71736-4, CMP #### [facility] ([id number]) [address], [address] [place] [address] Monocytes/100 WBC (Bld) 8.9 % Normal [facility] Comment on above: Performed By: #### Chantal BCA, 14785-5, PINR, 05758-6, CMP #### [facility] ([id number]) [address], [address] [place] [address] Neutrophils/100 WBC (Bld) 77.4 % Normal [facility] Comment on above: Performed By: #### C BCA, 52928-4, PINR, 39162-0, CMP #### [facility] ([id number]) [address], [address] [place] [address] Platelet mean volume (Bld) [Entitic vol] 8.3 fL Normal 7-12 [facility] Comment on above: Performed By: #### Chantal BCA, 95040-6, PINR, 65753-5, CMP #### [facility] ([id number]) [address], [address] [place] [address] Platelets (Bld) [#/Vol] 250 10*3/uL Normal 150-450 [facility] Comment on above: Performed By: #### C BCA, 74886-6, PINR, 88442-4, CMP #### [facility] ([id number]) [address], [address] [place] [address] RBC COUNT 3.69 X10E12/L Low 3.80-5.20 [facility] Comment on above: Performed By: #### C BCA, 93945-1, PINR, 97021-2, CMP #### [facility] ([id number]) [address], [address] [place] [address] WBC (Bld) [#/Vol] 10.5 10*3/uL Normal 4.0-11.0 [facility] Comment on above: Performed By: #### C BCA, 02867-7, PINR, 53474-8, CMP #### [facility] ([id number]) [address], [address] [place] [address] COMPREHENSIVE METABOLIC [facility] 01-14-2024 Albumin [Mass/Vol] 3.2 g/dL Normal 3.2-5.3 [facility] Comment on above: Performed By: #### C BCA, 59075-1, PINR, 65642-5, CMP #### [facility] ([id number]) [address], [address] [place] [address] ALP [Catalytic activity/Vol] 103 U/L Normal 39-130 [facility] Comment on above: Performed By: #### C BCA, 43507-6, PINR, 16612-9, CMP #### [facility] ([id number]) [address], [address] [place] [address] ALT [Catalytic activity/Vol] 25 U/L Normal 0-31 [facility] Comment on above: Performed By: #### C BCA, 95266-0, PINR, 98653-3, CMP #### [facility] ([id number]) [address], [address] [place] [address] Anion gap [Moles/Vol] 9 mmol/L Normal 5-15 [facility] Comment on above: Performed By: #### C BCA, 61360-4, PINR, 71756-1, CMP #### [facility] ([id number]) [address], [address] [place] [address] AST [Catalytic activity/Vol] 26 U/L Normal 0-41 [facility] Comment on above: Performed By: #### C BCA, 78648-7, PINR, 50245-8, CMP #### [facility] ([id number]) [address], [address] [place] [address] Bilirubin [Mass/Vol] 0.6 mg/dL Normal 0.3-1.2 [facility] Comment on above: Performed By: #### C BCA, 93730-3, PINR, 35069-4, CMP #### [facility] ([id number]) [address], [address] [place] [address] Calcium [Mass/Vol] 8.2 mg/dL Low 8.5-10.5 [facility] Comment on above: Performed By: #### C BCA, 84816-0, PINR, 53654-2, CMP #### [facility] ([id number]) [address], [address] [place] [address] Chloride [Moles/Vol] 102 mmol/L Normal 98-109 [facility] Comment on above: Performed By: #### C BCA, 90123-5, PINR, 14213-0, CMP #### [facility] ([id number]) [address], [address] [place] [address] CO2 [Moles/Vol] 28 mmol/L Normal 22-32 [facility] Comment on above: Performed By: #### C BCA, 84058-3, PINR, 85863-6, CMP #### [facility] ([id number]) [address], [address] [place] [address] Creatinine [Mass/Vol] 0.48 mg/dL Normal 0.40-1.00 [facility] Comment on above: Result Comment: METH OD TRACEABLE TO IDMS STANDARD Performed By: #### C BCA, 06422-2, PINR, 49422-5, CMP #### [facility] ([id number]) [address], [facility] [address] [place] [address] eGFR (CKD-EPI) NON-RACE DEPENDENT >90 Normal >59 [facility] Comment on above: Result Comment: Reported eGFR is based on the CKD-EPI 2020 equation that does not use a race coefficient. Performed By: #### C BCA, 06347-5, PINR, 16639-5, CMP #### [facility] ([id number]) [address], [address] [place] [address] Glucose [Mass/Vol] 92 mg/dL Normal 65-99 [facility] Comment on above: Performed By: #### C BCA, 36734-6, PINR, 18648-7, CMP #### [facility] ([id number]) [address], [address] [place] [address] Potassium [Moles/Vol] 3.2 mmol/L Low 3.5-5.0 [facility] Comment on above: Performed By: #### C BCA, 14583-1, PINR, 12995-3, CMP #### [facility] ([id number]) [address], [address] [place] [address] Protein [Mass/Vol] 6.6 g/dL Normal 6.0-8.0 [facility] Comment on above: Performed By: #### C BCA, 19970-6, PINR, 30246-6, CMP #### [facility] ([id number]) [address], [address] [place] [address] Sodium [Moles/Vol] 139 mmol/L Normal 134-146 [facility] Comment on above: Performed By: #### C BCA, 36905-6, PINR, 53111-6, CMP #### [facility] ([id number]) [address], [address] [place] [address] Urea nitrogen [Mass/Vol] 3 mg/dL Low 5-23 [facility] Comment on above: Performed By: #### C BCA, 60643-3, PINR, 69191-6, CMP #### [facility] ([id number]) [address], [address] [place] [address] Fibrinogen Coagulation.deriv ed (PPP) [Mass/Vol]on 01-14-2024 FIBRINOGEN 803 mg/dL High 190-480 [facility] Comment on above: Performed By: #### C BCA, 68634-7, PINR, 93235-5, CMP #### [facility] ([id number]) [address], [address] [place] [address] POTASSIUMon 01-14-2024 Potassium [Moles/Vol] 3.9 mmol/L Normal 3.5-5.0 [facility] Comment on above: Performed By: #### 2 823-3 #### [facility] ([id number]) [address], [address] [place] [address] PROTIME AND INRon 01-14-2024 INR Coag (PPP) [Relative time] 1.2 {INR} High 0.8-1.1 [facility] Comment on above: Performed By: #### C BCA, 61486-1, PINR, 93570-7, CMP #### [facility] ([id number]) [address], [address] [place] [address] PT Coag (PPP) [Time] 14.3 s High 9.8-13.2 [facility] Comment on above: Performed By: #### C DARIO, 79147-3, PINR, 63121-6, CMP #### [facility] ([id number]) [address], [address] [place] [address] aPTT Coag (PPP) [Time]on aPTT Coag (Bld) [Time] 30 s Normal 26-37 [facility] Comment on above: Performed By: #### C DARIO, 07086-0, PINR, 12266-8, CMP #### [facility] ([id number]) [address], [address] [place] [address] APTTon 01-13-2024 ACTIVATED PARTIAL THROMBOPLASTIN TIME IN PPP BY COAGULATION ASSAY 37.7 Seconds High 25.0-35.0 [facility] Comment on above: Result Comment: Clin ical significance of the APTT is questionable in the presence of heparin. Performed By: #### L [id number] #### [facility] ([facility]) [address] [place] [address] BLOOD CULTUREon 01-13-2024 Bacteria identified Cx Nom (Bld) No growth at 5 days Normal [facility] Comment on above: Performed By: #### L [id number] #### [facility] ([facility]) [address] [place] [address] CBC WITH AUTO DIFFERENTIALon 01-13-2024 Basophils (Bld) [#/Vol] 0.03 10*3/uL Normal 0.00-0.20 [facility] Comment on above: Performed By: #### L [id number] #### [facility] ([facility]) [address] [place] [address] Basophils/100 WBC (Bld) 0.2 % Normal 0.0-1.0 [facility] Comment on above: Performed By: #### L [id number] #### [facility] (BEAKER) [address] [place] [address] Eosinophils (Bld) [#/Vol] 0.05 10*3/uL Normal 0.00-0.50 [facility] Comment on above: Performed By: #### L [id number] #### [facility] ([facility] [address] [place] [address] Eosinophils/100 WBC (Bld) 0.4 % Normal 0.0-6.0 [facility] Comment on above: Performed By: #### L [id number] #### [facility] ([facility]) [address] [place] [place] [address] Erythrocyte distribution width (RBC) [Ratio] 14.0 % Normal 11.5-15.0 [facility] Comment on above: Performed By: #### L [id number] #### [facility] ([facility]) [address] [place] [address] ERYTHROCYTE MEAN CORPUSCULAR HEMOGLOBIN CONCENTRATION (G/DL) BY AUTOMATED 32.9 g/dL Normal 32.0-35.0 [facility] Comment on above: Performed By: #### L [id number] #### [facility] ([facility]) [address] [place] [address] Hematocrit (Bld) [Volume fraction] 32.8 % Low 36.0-48.0 [facility] Comment on above: Performed By: #### L [id number] #### [facility] ([facility]) [address] [place] [address] Hemoglobin (Bld) [Mass/Vol] 10.8 g/dL Low 12.0-15.0 [facility] Comment on above: Performed By: #### L [id number] #### [facility] ([facility] [address] [place] [address] Immature granulocytes (Bld) [#/Vol] 0.05 10*3/uL Normal 0.00-0.20 [facility] Comment on above: Performed By: #### L [id number] #### [facility] (BEAKER) [address] [place] [address] Immature granulocytes/100 WBC (Bld) 0.4 % Normal 0.0-1.0 [facility] Comment on above: Performed By: #### L [id number] #### [facility] (BEAKER) [address] [place] [address] Lymphocytes (Bld) [#/Vol] 1.38 10*3/uL Normal 1.20-4.00 [facility] Comment on above: Performed By: #### L [id number] #### [facility] ([facility] [address] [facility] [place] [address] Lymphocytes/100 WBC (Bld) 10.9 % Low 20.0-45.0 [facility] Comment on above: Performed By: #### L [id number] #### [facility] ([facility]) [address] [place] [address] MCH (RBC) [Entitic mass] 27.6 pg Normal 27.0-33.0 [facility] Comment on above: Performed By: #### L [id number] #### [facility] ([facility] [address] [place] [address] MCV (RBC) [Entitic vol] 83.7 fL Normal 82.0-98.0 [facility] Comment on above: Performed By: #### L [id number] #### [facility] ([facility]) [address] [place] [address] Monocytes (Bld) [#/Vol] 0.98 10*3/uL Normal 0.10-1.00 [facility] Comment on above: Performed By: #### L [id number] #### [facility] (BEAKER) [address] [place] [address] Monocytes/100 WBC (Bld) 7.8 % Normal 5.0-12.0 [facility] Comment on above: Performed By: #### L [id number] #### [facility] (BEAKER) [address] [place] [address] Neutrophils (Bld) [#/Vol] 10.15 10*3/uL High 1.60-7.60 [facility] Comment on above: Performed By: #### L [id number] #### [facility] ([facility] [address] [place] [address] Neutrophils/100 WBC (Bld) 80.3 % High 40.0-72.0 [facility] Comment on above: Performed By: #### L [id number] #### [facility] ([facility]) [address] [place] [address] NRBC (PER 100 WBCS) BY AUTOMATED COUNT 0.0 % Normal 0 [facility] Comment on above: Performed By: #### L [id number] #### [facility] ([facility]) [address] [place] [address] PLATELETS (10*3/UL) IN BLOOD AUTOMATED COUNT 297 10*3/uL Normal 150-400 [facility] Comment on above: Performed By: #### L [id number] #### [facility] ([facility]) [address] [place] [address] RBC (Bld) [#/Vol] 3.92 10*6/uL Normal 3.80-5.00 [facility] Comment on above: Performed By: #### L [id number] #### [facility] ([facility] [address] [place] [address] WBC (Bld) [#/Vol] 12.64 10*3/uL High 4.00-10.60 [facility] Comment on above: Performed By: #### L [id number] #### [facility] ([facility]) [address] [place] [address] COMPREHENSIVE METABOLIC PANE [place] 01-13-2024 Albumin [Mass/Vol] 3.7 g/dL Normal 3.5-5.7 [facility] Comment on above: Performed By: #### L [id number] #### [facility] ([facility]) [address] [place] [address] ALP [Catalytic activity/Vol] 115 U/L High 34-104 [facility] Comment on above: Performed By: #### L [id number] #### [facility] ([facility]) [address] [place] [address] ALT [Catalytic activity/Vol] 30 U/L Normal 7-52 [facility] Comment on above: Performed By: #### L [id number] #### [facility] ([facility]) [address] [place] [address] Anion gap [Moles/Vol] 13 mmol/L Normal 7-20 [facility] Comment on above: Performed By: #### L [id number] #### [facility] ([facility]) [address] [place] [address] AST [Catalytic activity/Vol] 30 U/L Normal 13-39 [facility] Comment on above: Performed By: #### L [id number] #### [facility] ([facility]) [address] [place] [address] Bilirubin [Mass/Vol] 0.6 mg/dL Normal 0.3-1.0 [facility] Comment on above: Performed By: #### L [id number] #### [facility] ([facility]) [address] [place] [address] Calcium [Mass/Vol] 8.8 mg/dL Normal 8.6-10.3 [facility] Comment on above: Performed By: #### L [id number] #### [facility] ([facility]) [address] [place] [address] Chloride [Moles/Vol] 94 mmol/L Low 98-107 [facility] Comment on above: Performed By: #### L [id number] #### [facility] ([facility]) [address] [place] [address] CO2 [Moles/Vol] 32 mmol/L High 21-31 [facility] Comment on above: Performed By: #### L [id number] #### [facility] ([facility]) [address] [place] [address] Creatinine [Mass/Vol] 0.69 mg/dL Normal 0.60-1.20 [facility] Comment on above: Performed By: #### L [id number] #### [facility] ([facility]) [address] [place] [address] GLOMERULAR FILTRATION RATE ML/MIN/1.73 SQ M.PREDICTED 121.2 mL/min/1.73m*2 Normal >60.0 [facility] Comment on above: Result Comment: [facility]???s estimated glomerular filtration rate (eGFR) [...] AB17 #### [facility] ([facility]) [address] [place] [address] Glucose [Mass/Vol] 77 mg/dL Normal 70-100 [facility] Comment on above: Performed By: #### L [id number] #### [facility] ([facility]) [address] [place] [address] Potassium [Moles/Vol] 2.7 mmol/L Invalid Interpretation Code 3.5-5.1 [facility] Comment on above: Performed By: #### L [id number] #### [facility] ([facility]) [address] [place] [address] Protein [Mass/Vol] 7.9 g/dL Normal 6.0-8.3 [facility] Comment on above: Performed By: #### L [id number] #### [facility] ([facility]) [address] [place] [address] Sodium [Moles/Vol] 136 mmol/L Normal 136-145 [facility] Comment on above: Performed By: #### L [id number] #### [facility] ([facility]) [address] [place] [address] Urea nitrogen [Mass/Vol] 9 mg/dL Normal - [facility] Comment on above: Performed By: #### L [id number] #### [facility] ([facility]) [address] [place] [address] UREA NITROGEN/CREATININE (MASS RATIO) IN SER/PLAS 13.0 Normal [facility] Comment on above: Performed By: #### L [id number] #### [facility] ([facility]) [address] [place] [address] CREATININEon 01-13-2024 Creatinine [Mass/Vol] 0.53 mg/dL Normal 0.40-1.00 [facility] Comment on above: Result Comment: METH OD TRACEABLE TO IDMS STANDARD Performed By: #### C RT #### [facility] ([id number]) [address] [place] [address] eGFR (CKD-EPI) NON-RACE DEPENDENT >90 Normal >59 [facility] Comment on above: Result Comment: Reported eGFR is based on the CKD-EPI 2020 equation that does not use a race coefficient. Performed By: #### C RT #### [facility] ([id number]) [address] [place] [address] CT ABDOMEN PELVIS W IV CONTR Marichuy [...] achievable Electronically signed: Arsalan Bales MD. Normal [facility] CTA CHEST W IV CONTRASTon [...] achievable Electronically signed: Arsalan Bales MD. 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 Pt is also is having some chest pain that has been on and off. She stated this is the worse that she has had it. Normal [facility] EDPROVon 01-13-2024 EDPROV HPI Chief Complaint Patient presents with Chest Pain Post-op Problem Pt is a 28yo F who states she had a total hysterectomy on 11/20/23 and has been having complications with increasing pain since. States he has been in to see her [employer] Specialist and was told her incision was infected and started on antibiotics yesterday. Pt states she is now running a fever of 102 and endorses chills, body aches and chest pain which began last night. Denies vaginal bleeding/discharge, n/v/d, urinary complaints. History provided by: Patient [place] Coma Scale Score: 15 Patient History No [...] [address] Linn at [facility], he accepted pt for transfer. [BM] ED Course User Index [BM] Divine Coleman NP Diagnoses as of 01/14/242229 Pelvic abscess in female Sepsis without acute organ dysfunction, due to unspecified organism ([facility]) Medical Decision Making Attestion Divine Coleman NP 01/14/242230 Normal [facility] LACTIC ACID WITH 4 HOUR REFL EXon 01-13-2024 LACTATE (MMOL/L) IN SER/PLAS 1.3 mmol/L Normal 0.5-2.2 [facility] Comment on above: Performed By: #### L [id number] #### [facility] (BEAKER) [address] [place] [address] MAGNESIUMon 01-13-2024 Magnesium [Mass/Vol] 2.5 mg/dL Normal 1.9-2.7 [facility] Comment on above: Performed By: #### L [id number] #### [facility] ([facility]AKER) [address] [place] [address] POC CHEM7 W/ HCTon 4 Chloride [Moles/Vol] 99 mmol/L Normal 98-109 [facility] Comment on above: Performed By: #### I [id number] #### [facility] ([id number]) [address] [place] [address] CO2 [Moles/Vol] 27 mmol/L Normal 22-32 [facility] Comment on above: Performed By: #### I [id number] #### [facility] ([id number]) [address] [place] [address] Creatinine [Mass/Vol] 0.6 mg/dL Normal 0.4-1.0 [facility] Comment on above: Result Comment: METH OD TRACEABLE TO IDMS STANDARD Performed By: #### I [id number] #### [facility] ([id number]) [address] [place] [address] eGFR (CKD-EPI) NON-RACE DEPENDENT >90 Normal >59 [facility] Comment on above: Result Comment: Reported eGFR is based on the CKD-EPI 2020 equation that does not use a race coefficient. Performed By: #### I [id number] #### [facility] ([id number]) [address] [place] [address] Glucose [Mass/Vol] 98 mg/dL Normal 65-99 [facility] Comment on above: Performed By: #### I [id number] #### [facility] ([id number]) [address] [place] [address] Hematocrit (Bld) [Volume fraction] 29 % Low 35-47 [facility] Comment on above: Performed By: #### I [id number] #### [facility] ([id number]) [address] [place] [address] PORTABLE BUN <6 Low 6-23 [facility] Comment on above: Performed By: #### I [id number] #### [facility] ([id number]) [address] [place] [address] Potassium [Moles/Vol] 2.9 mmol/L Low 3.5-5.0 [facility] Comment on above: Performed By: #### I [id number] #### [facility] ([id number]) [address] [place] [address] Sodium [Moles/Vol] 138 mmol/L Normal 134-146 [facility] Comment on above: Performed By: #### I [id number] #### [facility] ([id number]) [address] [place] [address] POTASSIUMon 01-13-2024 Potassium [Moles/Vol] 3.1 mmol/L Low 3.5-5.0 [facility] Comment on above: Performed By: #### 2 [id number] #### [facility] ([id number]) [address], [address] [place] [address] PROTIME-INRon 01-13-2024 INR IN PPP BY COAGULATION ASSAY 1.12 High 0.90-1.10 [facility] Comment on above: Result Comment: [...] Performed By: #### L [id number] #### [facility] ([facility] [address] [place] [address] PROTHROMBIN TIME (PT) IN PPP BY COAGULATION ASSAY 14.4 Seconds Normal 12.3-14.8 [facility] Comment on above: Performed By: #### L [id number] #### [facility] ([facility]) [address] [place] [address] TROPONIN Ion 01-13-2024 Troponin I.cardiac [Mass/Vol] 0.02 ng/mL Normal 0.00-0.04 [facility] Comment on above: Performed By: #### L [id number] #### [facility] ([facility]) [address] [place] [address] URINALYSIS MICROSCOPIC WITH REFLEX CULTUREon 01-13-2024 CASTS IN URINE Normal [facility] Comment on above: Performed By: #### L [id number] #### [facility] ([facility]) [address] [place] [address] CRYSTALS IN URINE Normal [facility] Comment on above: Performed By: #### L [id number] #### [facility] ([facility]) [address] [place] [address] MUCUS (#/HPF) IN URINE SEDIMENT Many Abnormal None Seen, Occasional, Few [facility] Comment on above: Performed By: #### L [id number] #### [facility] ([facility]) [address] [place] [address] OTHER MICROSCOPIC ELEMENTS Normal [facility] Comment on above: Performed By: #### L [id number] #### [facility] ([facility]) [address] [place] [address] RBC (#/HPF) IN URINE SEDIMENT 6-10 Abnormal None Seen [facility] Comment on above: Performed By: #### L [id number] #### [facility] ([facility]) [address] [place] [address] SQUAMOUS EPITHELIAL CELLS (#/HPF) IN URINE SEDIMENT Moderate Abnormal None Seen, Occasional [facility] Comment on above: Performed By: #### L [id number] #### [facility] ([facility]) [address] [place] [address] WBC (LEUKOCYTE) (#/HPF) IN URINE SEDIMENT 11-20 Abnormal None Seen [facility] Comment on above: Performed By: #### L [id number] #### [facility] ([facility]) [address] [place] [address] URINALYSIS WITH REFLEX CULTU REon 01-13-2024 BILIRUBIN, TOTAL PRESENCE IN URINE Negative Normal Negative [facility] Comment on above: Performed By: #### L [id number] #### [facility] ([facility]) [address] [place] [address] Clarity (U) Slightly Cloudy Abnormal Clear [facility] Comment on above: Performed By: #### L [id number] #### [facility] ([facility]) [address] [place] [address] Color (U) Cassidy Abnormal Yellow [facility] Comment on above: Performed By: #### L [id number] #### [facility] ([facility]) [address] [place] [address] Glucose (U) [Mass/Vol] Negative Normal Negative [facility] Comment on above: Performed By: #### L [id number] #### [facility] ([facility]) [address] [place] [address] HEMOGLOBIN PRESENCE IN URINE Small Abnormal Negative [facility] Comment on above: Performed By: #### L [id number] #### [facility] ([facility]) [address] [place] [address] Ketones Ql (U) Negative Normal Negative [facility] Comment on above: Performed By: #### L [id number] #### [facility] ([facility]) [address] [place] [address] LEUKOCYTE ESTERASE PRESENCE IN URINE BY TEST STRIP Small Abnormal Negative [facility] Comment on above: Performed By: #### L [id number] #### [facility] ([facility]) [address] [place] [address] NITRITE PRESENCE IN URINE Negative Normal Negative [facility] Comment on above: Performed By: #### L [id number] #### [facility] ([facility]) [address] [place] [address] pH (U) 5.0 [pH] Normal 5.0-8.0 [facility] Comment on above: Performed By: #### L [id number] #### [facility] ([facility]) [address] [place] [address] Protein (U) [Mass/Vol] 30 mg/dL Abnormal Negative [facility] Comment on above: Performed By: #### L [id number] #### [facility] ([facility]) [address] [place] [address] Specific gravity (U) [Rel density] 1.020 Normal 1.015-1.020 [facility] Comment on above: Performed By: #### L [id number] #### [facility] ([facility]) [address] [place] [address] UROBILINOGEN (EU/DL) IN URINE 4.0 EU/dL Abnormal Negative [facility] Comment on above: Performed By: #### L [id number] #### [facility] ([facility]) [address] [place] [address] Activated partial thrombopla stin time (aPTT) in platelet poor plasma by coagulation aOrdered By: Nikhil Quiñones on 01-08-2024 aPTT Coag (PPP) [Time] 35.0 s 25.1-36.[address] [facility] Comment on above: A hematocrit value g reater than 55% may lead to inaccurate results in coagulation testing. Patients having hematocrit values >55% require a special collection tube for coagulation studies. Please contact the laboratory at [phone] for redraw instructions. Alanine aminotransferase [En zymatic activity/volume] in Serum or PlasmaOrdered By: Nikhil Quiñoens on 01-08-2024 ALT [Catalytic activity/Vol] 13 U/L 7-[address] [facility] Albumin [Mass/volume] in Ser um or Plasma by Bromocresol green (BCG) dye binding methoOrdered By: Nikhil Quiñones on 01-08-2024 Albumin BCG dye [Mass/Vol] 4.4 g/dL 3.5-5.[address] [facility] Alkaline phosphatase [Enzyma tic activity/volume] in Serum or PlasmaOrdered By: Nikhil Quiñones on 01-08-2024 ALP [Catalytic activity/Vol] 66 U/L 34-[address] [facility] Aspartate aminotransferase [ Enzymatic activity/volume] in Serum or PlasmaOrdered By: Nikhil Quiñones on 01-08-2024 AST [Catalytic activity/Vol] 16 U/L 13-[address] [facility] Basophils Auto (Bld) [#/Vol] Ordered By: Nikhil Quiñones on 01-08-2024 Basophils (Bld) [#/Vol] 0.0 10*3/uL 0.0-0.[address] [facility] Basophils/100 WBC Auto (Bld) Ordered By: Nikhil Quiñones on 01-08-2024 Basophils/100 WBC (Bld) 0.4 % . [facility] Bilirubin Test strip Ql (U)O rdered By: Nikhil Quiñones on 01-08-2024 Bilirubin Ql (U) Negative Negative [place] Bilirubin.direct [Mass/volum e] in Serum or PlasmaOrdered By: Nikhil Quiñones on 01-08-2024 Bilirubin.direct [Mass/Vol] 0.00 mg/dL Low 0.03-0.[address] [facility] Comment on above: If the DBIL is less than 0.1, IBIL is not able to becalculated. Bilirubin.total [Mass/volume ] in Serum or PlasmaOrdered By: Nikhil Quiñones on 01-08-2024 Bilirubin [Mass/Vol] 0.3 mg/dL 0.3-1.0 [facility] COVID CepheidOrdered By: Joselito Quiñones on 01-08-2024 SARS-CoV-2 (COVID-19) Ab IA Ql Negative Negative [facility] Comment on above: This is a duplicate [employer] Xpert Xpress CoV-2/Flu/RSV Plus RNA by RT-PCR result to be used for statistical tracking purpose only. SARS-CoV-2 (COVID-19) RNA MARICEL+probe Ql (Unsp spec) [facility] Calcium [Mass/volume] in Ser um or PlasmaOrdered By: Nikhil Quiñones on 01-08-2024 Calcium [Mass/Vol] 9.5 mg/dL 8.6-10.3 [facility] Carbon dioxide, total [Moles /volume] in Serum or PlasmaOrdered By: Nikhil Quiñones on 01-08-2024 CO2 [Moles/Vol] 27.6 mmol/L 21.0-31.0 [place] Chloride [Moles/volume] in S karla or PlasmaOrdered By: Nikhil Quiñones on 01-08-2024 Chloride [Moles/Vol] 102 mmol/L 98-107 [facility] Color Auto (U)Ordered By: Ryne Quiñones on 01-08-2024 Color (U) Yellow Yellow [facility] Creatinine [Mass/volume] in Serum or PlasmaOrdered By: Nikhil Quiñones on 01-08-2024 Creatinine [Mass/Vol] 0.63 mg/dL 0.60-1.20 [facility] Eosinophils Auto (Bld) [#/Vo l]Ordered By: Nikhil Quiñones on 01-08-2024 Eosinophils (Bld) [#/Vol] 0.0 10*3/uL 0.0-0.[address] [facility] Eosinophils/100 WBC Auto (Bl d)Ordered By: Nikhil Quiñones on 01-08-2024 Eosinophils/100 WBC (Bld) 0.1 % . [facility] Erythrocyte distribution wid th Auto (RBC) [Ratio]Ordered By: Nikhil Quiñones on 01-08-2024 Erythrocyte distribution width (RBC) [Ratio] 15.2 % 11.9-15.[address] [facility] Globulin Calc (S) [Mass/Vol] Ordered By: Nikhil Quiñones on 01-08-2024 Globulin (S) [Mass/Vol] 3.4 g/dL [facility] Glucose [Mass/volume] in Ser um or PlasmaOrdered By: Nikhil Quiñones on 01-08-2024 Glucose [Mass/Vol] 90 mg/dL 70-100 [facility] Comment on above: ADA recommended refe rence rangeRandom Glucose Reference Range is dependent on time and content of last meal. Glucose of more than 200 mg/dL in a nonstressed, ambulatory subject supports the diagnosis of Diabetes Mellitus. Hematocrit Auto (Bld) [Volum e fraction]Ordered By: Nikhil Quiñones on 01-08-2024 Hematocrit (Bld) [Volume fraction] 36.5 % 34.0-46.[address] [facility] Hemoglobin [Mass/volume] in BloodOrdered By: Nikhil Quiñones on 01-08-2024 Hemoglobin (Bld) [Mass/Vol] 12.2 g/dL 11.8-15.[address] [facility] INR in Platelet poor plasma by Coagulation assayOrdered By: Nikhil Quiñones on 01-08-2024 INR Coag (PPP) [Relative time] 1.2 {INR} [facility] Comment on above: INR Therapeutic Rang [...] Ketones (U) [Mass/Vol] Negative Negative [facility] Lactate [Moles/volume] in Se rum or PlasmaOrdered By: Nikhil Quiñones on 01-08-2024 Lactate [Moles/Vol] 0.6 mmol/L 0.5-2.2 [facility] Leukocytes [#/volume] correc arminda for nucleated erythrocytes in Blood by Automated counOrdered By: Nikhil Quiñones on 01-08-2024 WBC corrected for nucl RBC Auto (Bld) [#/Vol] 7.6 10*3/uL 3.8-11.[address] [facility] Lipase [Enzymatic activity/v olume] in Serum or PlasmaOrdered By: Nikhil Quiñones on 01-08-2024 Lipase [Catalytic activity/Vol] 10.0 U/L Low 11.0-82.[address] [facility] Lymphocytes Auto (Bld) [#/Vo l]Ordered By: Nikhil Quiñones on 01-08-2024 Lymphocytes (Bld) [#/Vol] 1.1 10*3/uL 1.00-4.[address] [facility] Lymphocytes/100 WBC Auto (Bl d)Ordered By: Nikhil Quiñones on 01-08-2024 Lymphocytes/100 WBC (Bld) 14.9 % . [facility] MCH Auto (RBC) [Entitic mass ]Ordered By: Nikhil Quiñones on 01-08-2024 MCH (RBC) [Entitic mass] 27.6 pg 24.7-34.[address] [facility] MCHC Auto (RBC) [Mass/Vol]Or dered By: Nikhil Quiñones on 01-08-2024 MCHC (RBC) [Mass/Vol] 33.5 g/dL 32.0-35.0 [facility] MCV Auto (RBC) [Entitic vol] Ordered By: Nikhil Quiñones on 01-08-2024 MCV (RBC) [Entitic vol] 82.4 fL 80-[address] [facility] Monocyte distribution width [Entitic volume] in Blood by AutomatedOrdered By: Nikhil Quiñones on 01-08-2024 Monocyte distribution width Auto (Bld) [Entitic vol] 21.47 % High 0.00-20.[address] [facility] Comment on above: For adults in ED, MD W > 20.0 may be associated with a higher risk of sepsis during the first 12 hrs of hospital admission Monocytes Auto (Bld) [#/Vol] Ordered By: Nikhil Quiñones on 01-08-2024 Monocytes (Bld) [#/Vol] 0.6 10*3/uL 0.0-0.[address] [facility] Monocytes/100 WBC Auto (Bld) Ordered By: Nikhil Quiñones on 01-08-2024 Monocytes/100 WBC (Bld) 8.0 % . [facility] Neutrophils Auto (Bld) [#/Vo l]Ordered By: Nikhil Quiñones on 01-08-2024 Neutrophils (Bld) [#/Vol] 5.8 10*3/uL 1.8-7.[address] [facility] Neutrophils/100 WBC Auto (Bl d)Ordered By: Nikhil Quiñones on 01-08-2024 Neutrophils/100 WBC (Bld) 76.6 % . [facility] Nitrite Test strip Ql (U)Ord ered By: Nikhil Quiñones on 01-08-2024 Nitrite Ql (U) Negative Negative [facility] No Panel InformationOrdered By: Nikhil Quiñones on 01-08-2024 Estimated GFR (CKD-EPI) > 60.0 mL/Min [facility] Creatinine Clearance (Chem 127.[address] [facility] Nucleated erythrocytes [Pres ence] in Blood by Automated countOrdered By: Nikhil Quiñones on 01-08-2024 Nucleated RBC Auto Ql (Bld) 0.1 /100{WBC} 0-0.[address] [facility] Platelet mean volume Auto (B ld) [Entitic vol]Ordered By: Nikhil Quiñones on 01-08-2024 Platelet mean volume (Bld) [Entitic vol] 8.5 fL 6.3-10.[address] [facility] Platelets Auto (Bld) [#/Vol] Ordered By: Nikhil Quiñones on 01-08-2024 Platelets (Bld) [#/Vol] 228 10*3/uL 150-[address] [facility] Potassium [Moles/volume] in Serum or PlasmaOrdered By: Nikhil Quiñones on 01-08-2024 Potassium [Moles/Vol] 3.7 mmol/L 3.5-5.1 [facility] Protein Auto test strip (U) [Mass/Vol]Ordered By: Nikhil Quiñones on 01-08-2024 Protein (U) [Mass/Vol] Negative Negative [facility] Protein [Mass/volume] in Ser um or PlasmaOrdered By: Nikhil Quiñones on 01-08-2024 Protein [Mass/Vol] 7.8 g/dL 6.4-8.9 [facility] Prothrombin time (PT)Ordered By: Nikhil Quiñones on 01-08-2024 PT Coag (PPP) [Time] 13.8 s High 9.0-12.9 [facility] Comment on above: A hematocrit value g reater than 55% may lead to inaccurate results in coagulation testing. Patients having hematocrit values >55% require a special collection tube for coagulation studies. Please contact the laboratory at [phone] for redraw instructions. RBC Auto (Bld) [#/Vol]Ordere d By: Nikhil Quiñones on 01-08-2024 RBC (Bld) [#/Vol] 4.43 10*6/uL 3.60-5.00 [facility] Serum or plasma albumin/glob ulin mass ratioOrdered By: Nikhil Quiñones on 01-08-2024 Albumin/Globulin [Mass ratio] 1.3 {ratio} [facility] Serum or plasma anion gap de terminationOrdered By: Nikhil Quiñones on 01-08-2024 Anion gap [Moles/Vol] 12.1 mmol/L 6.0-15.0 [facility] Serum or plasma non-glucuron idated bilirubin measurement (mass/volume)Ordered By: Nikhil Quiñones on 01-08-2024 Bilirubin.indirect [Mass/Vol] 0.3 mg/dL [facility] Sodium [Moles/volume] in Ser um or PlasmaOrdered By: Nikhil Quiñones on 01-08-2024 Sodium [Moles/Vol] 138 mmol/L 136-145 [facility] Specific gravity Auto test s trip (U) [Rel density]Ordered By: Nikhil Quiñones on 01-08-2024 Specific gravity (U) [Rel density] 1.013 1.001-1.[address] [facility] Trichomonas vaginalis detect ion by wet preparationOrdered By: Nikhil Quiñones on 01-08-2024 T. vaginalis Wet prep Ql (Unsp spec) [facility] Urea nitrogen [Mass/volume] in Serum or PlasmaOrdered By: Nikhil Quiñones on 01-08-2024 Urea nitrogen [Mass/Vol] 7 mg/dL 7-[address] [facility] Urine clarity by refractomet ry automatedOrdered By: Nikhil Quiñones 01-08-2024 Clarity Refractometry automated (U) Clear Clear [facility] Urine glucose measurement by automated test strip (mass/volume)Ordered By: Nikhil Quiñones on 01-08-2024 Glucose Auto test strip (U) [Mass/Vol] Normal mg/dL Normal [facility] Urine hemoglobin detection b y automated test stripOrdered By: Nikhil Quiñones on 01-08-2024 Hemoglobin Auto test strip Ql (U) Negative Negative [facility] Urine leukocyte esterase det ection by automated test stripOrdered By: Nikhil Quiñones on 01-08-2024 Leukocyte esterase Auto test strip Ql (U) Negative Negative [facility] Urobilinogen Auto test strip (U) [Mass/Vol]Ordered By: Nikhil Quiñones on 01-08-2024 Urobilinogen (U) [Mass/Vol] Normal mg/dL Normal [facility] WBC Auto (Bld) [#/Vol]Ordere d By: Nikhil Quiñones on 01-08-2024 WBC (Bld) [#/Vol] 7.6 10*3/uL 3.8-11.6 [facility] pH Auto test strip (U)Ordere d By: Nikhil Quiñones on 01-08-2024 pH (U) 7.0 [pH] 5.0-9.[address] [facility] Coding Summaryon 12-28-2023 Coding Summary [employer] 64 TnsveoqhJSz0wQn+PGhlYWQ+P W9QBIZyV46lbEXgvQ7cK0QUBF lOSywgQVBQTElOSyIgbmFtZT1 kaXNjZXJu IC8+VV6wIDAtOftqsLUrq3B1u TG2F38khd0qTUuyiRR6ZBJcVv Okwpmgu0tpcMq0FNuqXjoeZpZ t AMMbaY01UUX7bB19By67qBVbj XAgc5hlfMq9QwGlKVXzAGT2dA kkOWkif8DdCWLlY65tsZRox2I 6 ILIohAefoLFjRhLvpXV1pN5iM Harpfkxe1tukgvgGuk9og94eW Esv3U0jJO1W2NtmxX8YRQjbCG g AfwhyVIHjY3zxpevv8bjfoooB wVkCRHrBOq4GJf5XDEsmIfiZi QcXL49CCA7YNKyraYdG0DgOQR s eAisAvU6d4V7Xv7JS7FQJkejJ 1VNTUFSWTwvdGQ+LQ67hc88X6 MhGmehSic6SIJmLGZ4nGO9cL3 n LDMtTWlhi9M8nSG2W5FgrhTis v9dr9kwEXFhSDccP84gyKRex6 L0RYZurPV8NFIlyLrhUlSyhY4 3 Oyc+OTGqmLvdk0HsIywnb7cnd 7ebwSs9QxuuRAGhjxRhmCdmUC A3k9AgSa2yHZQzwNZ2dSC7sQ1 i RoNcTeN5BJfvQ718EfWxlVDkI ohxY17gH4TyzBZ+EMYwFzo5ER UfxAtjOI9uC6XrNFQxoabpmLS m iKgfTB9zOJXfoileKAUymP6bG NRhF8m3MpUkYtU9RZykS3BdCB UzruuhUh95vV1fLfUdWqK0ZXj u P9QciqR1JOUykZDjKUhsIZB6Z 48zd8W5ASNxCLKoXFD3jBD3oD 1hbGlnbjogbGVmdDsgdmVydGl j MMseAKrpM254CIVyrTobKkZiL GluZyBEYXRlOiAgMDcvMTEvMj AyNDwvdGQ+RTByVWZ3cEetJKU n eXRxQHawTh7dlWvxgXbpAQ1pF MYoyusyHEGnfB3hYVKnmRXpqD jcXX4gDGVeiuhje561MnMfKXH 0 SCYkkIVaX0PhsH7fCzIcBCYhI DSjM7IotLInXOruQ823HPmyPe G1TMZkciCvM0ObEQMahIavDmN 0 c2E8Pw1Db1TfbtapU1CdbTKyX yQxFtrkTUx6J8MxPmiyvKC+PC 46NOUxZP93PDl8RLF4iVqzHTo i NFVzG5MafZ8fOkYcKBWlWNGzP yc+PHRhYmxlIHdpZHRoPScxMD EqSwRtvCcyJH0kUj6sTBXpXDK v bBjmnOFxTtIqd4reLWVbSXezX Q9soGvtP0RasAU9FYDxj1p0Ra 65A72gM0XctXY+GCHslAC6oKG 0 kC8rHwKiWyQ6KZmvZ279YcJmq PPkYnuku9qmu1pkfVl9DpS9OO EmjeLzsEjxERN7q0TfWj05F83 s IHdpZHRoPSIxNSUiIHZhbGlnb o4dpX0nAm6+ZYNxeGP9uBF5hK 0xQsDhLqJ9FEzfX183UkZycGZ v Ebyzj0glo4yusXd4EaSkTXOkl oWgoTdnGJP4h0ZnWx00E4ZrsU tzb8KkGcg8pb70sWNod1Y4tFR 9 T0YcMYSvflhmxAHpyKcaGR1aP VXmtxwuUIZpvD3zLOIcO3n9Xc MdRjE4ETulV6SxxiE3MBAdkPX g MHKxuNJRiS0ytgkiw5okuwwqR nYtHPKpMTd5IPz4ZHXdiBulTk LqXTG0VjH5UFR8bJJneV1apTo n vgooqB5vAnf+EGB5lLOanTTZP P0xTwrtwVI+PYVfZAJ3gHvnFV soPLYzuG6dGVLiG2h0XtPpQrP 1 EKoxX6FqirP6SWJioETrQCSna CNEhW3txosdw3llpkxgQoHhJF ZcVTz7IJb9VPDeeAczLnBtPZN 0 PqM6NRK7vKYxcA6oiSlkmmqrd G9wOyc+KzyiiQxqGUL4RFk8Z9 IuVlq1HPBhhGcqLF2ypRMyIGr u Vm8kkYnraWuxQE2eFOJblbinf 974UhBpg9jfLPUqcFMbFPzwLY R2U30nu5H0KWNeZMXvJIE8dGW 4 jT4nlJjjxdgzpPWfiQkhgkKrd CeqGDusNDshF052ECRgiKnjTt LdCDk3E9BkLfj3DZZlsLyxQN1 n nBHnEAghUw2ouKjtoVuoXG7lD BCxvzkrm751CvHyo8wzWSPzoI KyRZlfKRF5I05sm8H1EUHhQML w TNO4tVS3qE9dbXwvahzxuDWnj OqntnUooCwwJBfrJUbwK517PD SjlUtgJlTufVz0E5ZkQyc3CQA z eVejWI1ciCWhUCfnDg6icYxct PvqDP4qCHGlobrvr485OeOrs3 roMMOygTHpAWvmZKC4L68zy9Z 6 MKGaBKVgNCS2eTR4pZ7jqNowx jogbGVmdDsgdmVydGljYWwtYW pxS389RUZusMblMaOkdJriqxG g NPwkERg0E0JzNxvegLT+PC90Y CAtOZ15sRMdaROvt8pfvNf2Vj TwLNMbXDD0jZhpGHwtd5GoSYY t P88owZGpy5P5JOOliWkxdREjI pNltQF6vH2kVDomagaxu8dpzd fgBxexw5jopi13sK86N17wKMp p QKUsOYEtENLxIJOobVkhhg7uv G9wIi8+PCSqdBR6hBO5nQ0cNY EhGpJ5OUmuS130LvAemOYbTmy j q5mlc6lkmZg2XtW6ZNUnzbSvx XhhULF5y2YnRa85Z39vTKoqSO PaFCUtUHGlSHOwlZdiay2eoB3 w Ii8+QQCsdSC4jWC9oK4pZoHxC pA6UXvhT360YiOndEUsSjjpJ7 1tM3PpmVF+YUMkZoa1UEVxhUd s RD6blBWnLUmhIx1kCZT8ZoPbM sPaTXixQ3RqTAFrrkwlkzbopQ M6WSAwFFFzeQ81Rp2ygTolJNL w dKSTmG7ebsxgy7zprpkhLsXhR ICcUDv8OKm2CJUzaLmkPsYmZX Z7MiE1DJT7kUXcqS8uuFxypal g fR0lZ0IwWYDdwvzoBc17dP1rZ cMdZbJ4MAezWlo+G1iGD73KCF FHXJVSYP1THGFPCIqQKhrlmWD + UYRxLYT1fHdlKGclOBAbdV4aU JRiJ7d8PhExLqJ7COoxP7WwER UkrwjcOp81yX1eRqXnCbL6HGi u C0LwymQ3HDBusMAkXXkwCLQ8G 09nh6H8VTWjJFWqXSP5xSJ5rZ 1hbGlnbjogbGVmdDsgdmVydGl j JPykMLfnH531ASRhiWtxEmJrD tC2CwT5IXY3P7UuMgd8HJZrtP quYH3vsIXxQSloNy5tmFgdcEs g RA8vTHEqrdduLAScpB0oHSHhb QVpmXyiWM4uTMZjptvlu034Al LdBXZ7OCWaoVQkZ9LqiE7gRqV j IXAbFCBgP7IkkKJpEEupY481I JsyWfN1UTZmpuIeT3VpICRxzA enAaV6z2X0Ee7zRUWRNRBonvh v dGQ+WPCyBTP8pFgkWZbiNQGvr D5dXMRbE9e5YwMpGcP6VIezI5 LlUILhhcxbDv32oS4jOyMxTkL 1 MCtaG8LcooD1SLDjnDOqTBfuD CO4Y90xm3Y1ZRXxFJMmPOR9cW S9oO0xgWgejbmfkEXpmOwhzsO y rLxiTVewGDftV705IUInsDukS kZFTUFMRTwvdGQ+WTEmYCC3gH pxJDciMKItnW7cBOEuZ1d2FqX w UpL8NMsaG8QhRYLfaibaVo19p Q5kOxTiVbQ7FSqdO0RnexF5RM KamCTfWRtsPVL7L43fk0I8RTY w BYObLYV0mCO6xW7dgKeaixrif GVmdDsgdmVydGljYWwtYWxpZ2 19FUFdvQpaMiFjRYUaAP8bkLy v dGQ+HN30xx95L6ZbPhewAeo8O CKbYZI6uBJ7hT4rKRZrXNpat7 R0nVT1J5TkxiHnaa0ei3qiYWC z JFroM39kgRQrh0G6ZQDapQN7Q HNdiTywEeGixN64Tmb+PGNvbG syt9RjUrlsn6xxz4jgxPn3KpR w WRByevLtzSieDFQ5f2XxNx60K 29sIHdpZHRoPSIzMCUiIHZhbG qxun3mgT3qRz7+WGKnbGM8iRR 0 xX4eKsKlDsF6VLjbD210PnOms HArAshax9iia2ndiEk7RtGxFH DtixFokHspLFB3o0UpHb81W0N v wVdmk7UbWyq1et07fQWbp3S1t NU6V9MiAGKxwyegxOMjcHffDV 0iAXSuonhsJJDyoO0fFOVdQ7p 0 OnAoZuE0MSffL7SrhoC9IYKfh CTxTRDbzVGVsE9vpywfl7upuv gyMzKcJAEpEGl5VXn5ORUuwUx u ByFxVGC1JaA6CID3sAWuuC3qb WifizetfA6jVzi+FUs9s7jokM AxBH5olMA4JV63UO70xABkt5P 5 hAW0R6XsHPCuciscrpqfaPD9F JIkHKAqeH04Jk5twMjlJp0pNG VaTVZ9LOGszAWnB2TbkU0lAhE j UQAgOBKwF0NnpZQxGGseV935N JbsIrK6KVKbdjSwA4YfUEAlcT urYgP4g6C8Tc7IVU78EB09MI9 8 xKMpt0R0hVL3H0TkSFWnpuamt ahwdBQ8PAHmRNGebZ67Lu2vhI usNj0xCQRcVZY4HYPbsEZpU9Q v xC7zSdUoQLWpXTZsC9CqcVZoK IpoW760IGtxFgB7XDBrpsUyH8 ZzEQEhgOxcYlR4i1G7Tu5FAo0 6 VD98QT79aYYqr2Z1dPX4F3MwK VVevqwdpkliiKO3SHYgUCEomJ 34Lz6qfKwuWp4nWIEiIMK1GLJ p kHTiX3KdpG7cMvIkWUFsZASmD 6CawTEfGLnoB566YHkwUdF7BP SwnsVoA1HiNOOnmMvyVmH2f4V 7 Qg7VUKkuego5X8XaZsbdqFK+P [id number] ZXI (more content not included)... Normal [facility] .Auto Diff 112-18-2023 Auto [place] % 8 % Normal 12 [facility] Comment on above: Performed By: #### 1 [id number], 9097973252, 0216353358, 38146569, 4698176774, 7438342 #### [facility] (DEFAULT) [address] [place] [address] 81457 Baso Abs# 0.0 x10 Normal 0.0-0.2 [facility] Comment on above: Performed By: #### 1 [id number], 6073904105, 5262831294, 27684489, 2221727927, 3358121 #### [facility] (DEFAULT) [address] [place] [address] 58799 Basophils/100 WBC (Bld) 0.5 % Normal 0.2-2.0 [facility] Comment on above: Performed By: #### 1 [id number], 2234354866, 7825932549, 95077506, 5080583996, 8996486 #### [facility] (DEFAULT) [address] [place] [address] 78235 Eos Abs# 0.0 x10 Normal 0.0-0.4 [facility] Comment on above: Performed By: #### 1 [id number], 8458749450, 3778463626, 65835630, 7765840908, 4035415 #### [facility] (DEFAULT) [address] [place] [address] 50772 Eosinophils/100 WBC (Bld) 0.5 % Low 0.9-4.0 [facility] Comment on above: Performed By: #### 1 [id number], 1123266118, 1465805515, 50989904, 8304222558, 8539423 #### [facility] (DEFAULT) [address] [place] [address] 28777 Lymph Abs# 1.9 x10 Normal 1.3-2.9 [facility] Comment on above: Performed By: #### 1 [id number], 6308217636, 2566006746, 09404588, 6232350045, 3512031 #### [facility] (DEFAULT) [address] [place] [address] 72728 Lymphocytes/100 WBC (Bld) 32 % Normal 14-48 [facility] Comment on above: Performed By: #### 1 966756152, 8890804156, 9814808076, 16580364, 8643826176, 5123117 #### [facility] (DEFAULT) [address] [place] [address] 72153 [place] Abs# 0.4 x10 Normal 0.0-0.8 [facility] Comment on above: Performed By: #### 1 880302250, 6008674193, 1067753493, 56213657, 8128404804, 4580496 #### [facility] (DEFAULT) [address] [place] [address] 99012 Neut Abs# 3.5 x10 Normal 1.5-9.2 [facility] Comment on above: Performed By: #### 1 124852762, 8463843854, 9452022163, 43901884, 8282735842, 3917522 #### [facility] (DEFAULT) [address] [place] [address] 69083 Neutrophils/100 WBC (Bld) 59 % Normal 44-88 [facility] Comment on above: Performed By: #### 1 999825345, 8805540185, 6555861552, 19811054, 6508775442, 4381309 #### [facility] (DEFAULT) [address] [place] [address] CBC w/ Auto Diffon 4 Erythrocyte distribution width (RBC) [Ratio] 15.9 % High 11.5-15.0 [facility] Comment on above: Performed By: #### 1 [id number], 4635905376, 6874016187, 77575603, 0310843025, 7655191 #### [facility] (DEFAULT) [address] [place] [address] Hematocrit (Bld) [Volume fraction] 34.4 % Normal 33.7-40.4 [facility] Comment on above: Performed By: #### 1 561877604, 2242748440, 9519536367, 84763955, 3754303991, 8679925 #### [facility] (DEFAULT) [address] [place] [address] Hemoglobin (Bld) [Mass/Vol] 11.3 g/dL Normal 11.3-15.9 [facility] Comment on above: Performed By: #### 1 578893603, 7481499948, 9795020076, 85976316, 5283662926, 5314257 #### [facility] (DEFAULT) [address] [place] [address] 83602 Man Diff? Auto Invalid Interpretation Code [facility] Comment on above: Performed By: #### 1 [id number], 9810746142, 9209077175, 53757667, 1660954574, 0897591 #### [facility] (DEFAULT) [address] [place] [address] 68091 MCH (RBC) [Entitic mass] 28 pg Normal 24-34 [facility] Comment on above: Performed By: #### 1 598554570, 6868926260, 1077441593, 54568926, 0263377265, 8028275 #### [facility] (DEFAULT) [address] [place] [address] 19289 MCHC (RBC) [Mass/Vol] 33 g/dL Normal 26-37 [facility] Comment on above: Performed By: #### 1 983130445, 1102958559, 1150007676, 56077645, 2448943335, 5840188 #### [facility] (DEFAULT) [address] [place] [address] 17385 MCV (RBC) [Entitic vol] 84 fL Normal 81-100 [facility] Comment on above: Performed By: #### 1 565654860, 0634821189, 3182930877, 89537052, 9647561683, 2939581 #### [facility] (DEFAULT) [address] [place] [address] 78800 Platelet 233 x10 Normal 138-427 [facility] Comment on above: Performed By: #### 1 337887534, 8038136101, 7842084227, 12278543, 6125467578, 5283115 #### [facility] (DEFAULT) [address] [place] [address] 80931 Platelet mean volume (Bld) [Entitic vol] 8.7 fL Normal 6.3-10.2 [facility] Comment on above: Performed By: #### 1 613909695, 1736693668, 4928192022, 19242489, 8743548773, 1120762 #### [facility] (DEFAULT) [address] [place] [address] 34639 RBC 4.10 x10 Normal 3.70-5.30 [facility] Comment on above: Performed By: #### 1 208137954, 9692647051, 0788103257, 57751625, 7437448932, 9585537 #### [facility] (DEFAULT) [address] [place] [address] 39225 WBC 5.8 x10 Normal 3.5-10.5 [facility] Comment on above: Performed By: #### 1 307310837, 1231798175, 3383625728, 32371305, 5259076495, 4659123 #### [facility] (DEFAULT) [address] [place] [address] CMP Standardon 12-18-2023 eGFR Non AA >60 Invalid Interpretation Code [facility] Comment on above: Performed By: #### 1 633561352, 2808862952, 6865854107, 48853108, 4441558723, 9712802 ####[facility] (DEFAULT)[address] [place] [address] eGFR AA >60 Invalid Interpretation Code [facility] Comment on above: Performed By: #### 1 978579901, 6014304388, 6290028773, 61136949, 0743150487, 8098616 ####[facility] (DEFAULT)[address] [place] [address] Albumin [Mass/Vol] 4.3 g/dL Normal 3.5-5.0 [facility] Comment on above: Performed By: #### 1 170669857, 5262888154, 1297535364, 86468432, 2637587518, 1275741 ####[facility] (DEFAULT)[address] [place] [address] Albumin/Globulin [Mass ratio] 1.2 {ratio} Low 1.4-2.6 [facility] Comment on above: Performed By: #### 1 913002092, 1115235578, 6236096477, 70492224, 4489633070, 0609368 ####[facility] (DEFAULT)[address] [place] [address] 48186 Alk Phos 44 IU/L Normal 32-91 [facility] Comment on above: Performed By: #### 1 686672772, 6455422888, 2011792940, 27075431, 8282392637, 8745111 ####[facility] (DEFAULT)[address] [place], [place] [address] ALT [Catalytic activity/Vol] 13.0 U/L Low 14.0-54.0 [facility] Comment on above: Performed By: #### 1 639908730, 2570823387, 2854224504, 04901442, 2496790179, 8756580 ####[facility] (DEFAULT)[address] [place] [address] 44794 Anion gap [Moles/Vol] 11.1 mmol/L Normal 5.0-19.0 [facility] Comment on above: Performed By: #### 1 504599869, 4395307965, 1544319958, 15764585, 0668999724, 5746246 ####[facility] (DEFAULT)[address] [place] [address] 65068 AST [Catalytic activity/Vol] 17 U/L Normal 15-41 [facility] Comment on above: Performed By: #### 1 615798524, 9450514280, 6181627127, 87754844, 8457923414, 9307839 ####[facility] (DEFAULT)[address] [place] [address] 83218 Bili Total 0.4 mg/dL Normal 0.3-1.2 [facility] Comment on above: Performed By: #### 1 900943398, 1132370754, 7111863938, 82049656, 1205260711, 9830714 ####[facility] (DEFAULT)[address] [place] [address] 14222 Calcium [Mass/Vol] 8.9 mg/dL Normal 8.9-10.3 [facility] Comment on above: Performed By: #### 1 394528255, 9605532424, 4386226384, 47649816, 6849290148, 6096505 ####[facility] (DEFAULT)[address] [place] [address] 37144 Chloride [Moles/Vol] 106 mmol/L Normal 101-111 [facility] Comment on above: Performed By: #### 1 297915463, 8408896330, 1179399548, 73755480, 8044401811, 6880618 ####[facility] (DEFAULT)[address] [place] [address] 79907 CO2 [Moles/Vol] 23 mmol/L Normal 21-32 [facility] Comment on above: Performed By: #### 1 877460706, 9425032593, 8043657948, 14213671, 4665518200, 7770221 ####[facility] (DEFAULT)[address] [place] [address] 17364 Creatinine [Mass/Vol] 0.67 mg/dL Normal 0.60-1.30 [facility] Comment on above: Performed By: #### 1 381276456, 2119539758, 5957615296, 60763230, 2949419591, 0362874 ####[facility] (DEFAULT)[address] [place] [address] 93229 Globulin (S) [Mass/Vol] 3.4 g/dL Normal 1.5-4.3 [facility] Comment on above: Performed By: #### 1 479882478, 1060674040, 1239762530, 61797008, 3911488239, 0564085 ####[facility] (DEFAULT)[address] [place] [address] 02945 Glucose [Mass/Vol] 93.0 mg/dL Normal 74.0-118.0 [facility] Comment on above: Performed By: #### 1 184748280, 6577702906, 5952899976, 55897014, 2373428809, 8999513 ####[facility] (DEFAULT)[address] [place] [address] 59465 Osmolality 272 mOsm/L Invalid Interpretation Code [facility] Comment on above: Performed By: #### 1 719707944, 0184244836, 6104455382, 00678532, 7525362001, 9972041 ####[facility] (DEFAULT)[address] [place] [address] 17430 Potassium [Moles/Vol] 3.1 mmol/L Low 3.6-5.1 [facility] Comment on above: Performed By: #### 1 473585906, 3333989933, 6202398182, 68557662, 4273839573, 7824744 ####[facility] (DEFAULT)[address] [place] [address] 48003 Protein [Mass/Vol] 7.7 g/dL Normal 6.5-8.1 [facility] Comment on above: Performed By: #### 1 665917276, 5360687832, 4383422403, 66277138, 5623989265, 9522837 ####[facility] (DEFAULT)[address] [place] [address] 52955 Sodium [Moles/Vol] 137.0 mmol/L Normal 136.0-144.0 [facility] Comment on above: Performed By: #### 1 470785812, 5421183739, 5689591919, 90765990, 9529317570, 6155045 ####[facility] (DEFAULT)[address] [place] [address] 96343 Urea nitrogen [Mass/Vol] 9 mg/dL Normal 8- [facility] Comment on above: Performed By: #### 1 969950770, 8834177875, 7258606488, 93983878, 9273906076, 8669074 ####[facility] (DEFAULT)[address] [place] [address] 33381 Urea nitrogen/Creatinine [Mass ratio] 13.4 mg/mg Normal 4.6-16.2 [facility] Comment on above: Performed By: #### 1 719570570, 9361662018, 2633148687, 41592253, 9030677183, 7361153 ####[facility] (DEFAULT)[address] [place] [address] Abdomen/Pelvis w/o Contra ston 12-18-2023 CT [...] MD 12/18/23 6:48 pm Technologist: DANN Morales [facility] ED Clinical Summaryon 2023 ED Clinical Summary [facility] - Emergency Department [address] [place] [address] ED Clinical Summary PERSON INFORMATION Name: BARBRA CLAROS Age: 28 Years Sex: FEMALE : 1995 MRN: Acct#: Visit Reason: Pelvic pain; FALL Arrival: 12/18/2023 16:55:10 Discharge: 12/18/2023 19:09:00 LOS: 000 02:14 Check In: 12/18/2023 16:55:10 Checkout:12/18/2023 19:09:00 Address: [address] [place] [address] PCP: Provider, None PROVIDER INFORMATION Provider Role Assigned Unassigned Anjel Yates MD ED Provider 12/18/2023 16:57:27 Viola 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 [facility] ED Patient Summaryon 024 ED Patient Summary [facility] - Emergency Department [address] [place] [address] PATIENT DISCHARGE INSTRUCTIONS Patient Information Name: BARBRA CLAROS Age: 28 Years Date of : 1995 Reason For Visit: Pelvic pain; FALL Arrival Time: 12/18/2023 16:55:10 Primary Care Physician: Provider, None Attending Physician: Anjel Yates MD Comment: Visit Diagnosis: Diagnoses This Visit Fall (W19.XXXA) Pelvic pain ([id number]) Pelvic pain in female (R10.2) The Pharmacy at [facility] is open Monday through Monday from [...] alcohol and/or drug addiction problems; contact the Mental Health [facility] Recovery Board [place] 09/01 Crisis Hotline -Text 4HHOX hz [phone]. If you received any narcotics, sedation, or [...] and treatment you received today in the [facility] Emergency Department were for an urgent problem and are not intended as complete care. It is important for you to follow up with a doctor, nurse practitioner, or physician?s assistant office manager for ongoing care. If your symptoms [...] so we can reach you if necessary. [facility] Emergency Department has provided you with a complete list of medications post discharge. Please inform your sales property manager/provider of your visit and for further instruction [...] Education Abdominal Pain, Adult Follow-up with your HIGHWAY TECHNICIAN review this emergency department visit and for [...] these instructions at home: Medicines ? Take elsv-zva-gnpnewj and prescription medicines only as told by your doctor. ? Do not take medicines that help you poop (laxatives) unless told by your doctor. General i (more content not included)... [facility] Extra Greenon 12-18-2023 Tube Collected Yes Invalid Interpretation Code [facility] Comment on above: Performed By: #### 1 [id number], 3827154976, 0337621514, 50771122, 5612390898, 5533665 #### [facility] (DEFAULT) [address] [place] [address] 19644 UA Zxtfa5rx 12-18-2023 UA Bacteria Trace [facility] Comment on above: Order Comment: Urina lysis Microscopic order added on by [employer] Expert Rules system. Performed By: #### 5 [id number], [id number] ####[facility] (DEFAULT)[address] [place] [address] 94297 UA RBC 3-5 [facility] Comment on above: Order Comment: Urina lysis Microscopic order added on by [employer] Expert Rules system. Performed By: #### 5 [id number], [id number] ####[facility] (DEFAULT)[address] [place] [address] 27236 UA Squam Epi Few [facility] Comment on above: Order Comment: Urina lysis Microscopic order added on by [employer] Expert Rules system. Performed By: #### 5 [id number], [id number] ####[facility] (DEFAULT)[address] [place] [address] 68827 UA WBC 0-2 [facility] Comment on above: Order Comment: Urina lysis Microscopic order added on by [employer] Expert Rules system. Performed By: #### 5 3148975, [id number] ####[facility] (DEFAULT)[address] [place] [address] UA w Culture if Ind Standard on 12-18-2023 Breakpoint UA [facility] Comment on above: Performed By: #### 5 [id number], [id number] ####[facility] (DEFAULT)[address] [place] [address] Color (U) Yellow [facility] Comment on above: Performed By: #### 5 [id number], [id number] ####[facility] (DEFAULT)[address] [place] [address] Culture? Not Indicated Invalid Interpretation Code [facility] Comment on above: Result Comment: Resu lt created by rule GL_MAGR_ADD_UA_CULT Result created by rule GL_MAGR_ADD_UA_CULT Result created by rule GL_MAGR_ADD_UA_CULT1 Performed By: #### 5 [id number], [id number] ####[facility] (DEFAULT)[address] [place] [address] 23508 Glucose (U) [Mass/Vol] Negative [facility] Comment on above: Performed By: #### 5 8283032, [id number] ####[facility] (DEFAULT)[address] [place] [address] 81745 Ketones Ql (U) Negative [facility] Comment on above: Performed By: #### 5 [id number], [id number] ####[facility] (DEFAULT)[address] [place] [address] Micro? Indicated Invalid Interpretation Code [facility] Comment on above: Result Comment: Resu lt created by rule GL_MAGR_ADD_UA_MICRO Performed By: #### 5 [id number], [id number] ####[facility] (DEFAULT)[address] [place] [address] UA Bilirubin Negative Normal [facility] Comment on above: Performed By: #### 5 [id number], [id number] ####[facility] (DEFAULT)[address] [place] [address] UA Blood SMALL Abnormal NEGATIVE [facility] Comment on above: Performed By: #### 5 [id number], [id number] ####[facility] (DEFAULT)[address] [place] [address] UA Clarity CLEAR Normal CLEAR [facility] Comment on above: Performed By: #### 5 [id number], [id number] ####[facility] (DEFAULT)[address] [place] [address] UA Leuk Est Negative Normal NEGATIVE [facility] Comment on above: Performed By: #### 5 [id number], [id number] ####[facility] (DEFAULT)[address] [place] [address] UA Nitrite Negative Normal NEGATIVE [facility] Comment on above: Performed By: #### 5 7776561, [id number] ####[facility] (DEFAULT)[address] [place] [address] UA pH 6.0 Normal 5-8 [facility] Comment on above: Performed By: #### 5 [id number], [id number] ####[facility] (DEFAULT)[address] [place] [address] UA Protein Negative Normal NEGATIVE [facility] Comment on above: Performed By: #### 5 7418189, [id number] ####[facility] (DEFAULT)[address] [place] [address] 34895 UA Spec Grav 1.010 Normal 1.001-1.035 [facility] Comment on above: Performed By: #### 5 [id number], [id number] ####[facility] (DEFAULT)[address] [place] [address] 15630 UA Urobilinogen 0.2 mg/dL Normal 0.2-1.0 [facility] Comment on above: Performed By: #### 5 [id number], [id number] ####[facility] (DEFAULT)[address] [place] [address] 92512 Urine Source Clean Catch Normal [facility] Comment on above: Performed By: #### 5 [id number], [id number] ####[facility] (DEFAULT)[address] [place] [address] 48945 CBCon 11-28-2023 Erythrocyte distribution width (RBC) [Ratio] 14.6 % High 11.8-14.4 [facility] [place] [facility] Comment on above: Performed By: #### C DP #### Lab [address] [place] [address] [place] [place] [id number] Concrete Layer: Lakhwinder Tim MD Hematocrit (Bld) [Volume fraction] 35.5 % Low 36.3-47.1 [facility] [place] [facility] Comment on above: Performed By: #### C DP #### [address] [place] [address]67783 Concrete Layer: Lakhwinder Tim MD Hemoglobin (Bld) [Mass/Vol] 11.3 g/dL Low 11.9-15.1 [facility] [place] [facility] Comment on above: Performed By: #### C DP #### [address] [place] [address] Concrete Layer: Lakhwinder Tim MD MCH (RBC) [Entitic mass] 27.3 pg Normal 25.2-33.5 [facility] [place] [facility] Comment on above: Performed By: #### C DP #### [address] [place] 7067783 Concrete Layer: Lakhwinder Tim MD MCHC (RBC) [Mass/Vol] 31.8 g/dL Normal 28.4-34.8 [facility] Comment on above: Performed By: #### C DP #### Lab [address] [place], [place] 1312883 Concrete Layer: Lakhwinder Tim MD MCV (RBC) [Entitic vol] 85.7 fL Normal 82.6-102.9 [facility] [place] [facility] Comment on above: Performed By: #### C DP #### [facility] [address] [place] [id number] Concrete Layer: Lakhwinder Tim MD NRBC Automated 0.0 per 100 WBC Normal 0.0 [facility] [place] [facility] Comment on above: Performed By: #### C DP #### [address] [place] 8742983 Concrete Layer: Lakhwinder Tim MD Platelet mean volume (Bld) [Entitic vol] 10.2 fL Normal 8.1-13.5 [facility] [place] [facility] Comment on above: Performed By: #### C DP #### [address] [place], [place] 9585083 Concrete Layer: Lakhwinder Tim MD Platelets (Bld) [#/Vol] 279 10*3/uL Normal 138-453 [facility] [place] [facility] Comment on above: Performed By: #### C DP #### [address] [place], [place] 8894583 Concrete Layer: Lakhwinder Tim MD RBC (Bld) [#/Vol] 4.14 10*6/uL Normal 3.95-5.11 [facility] [place] [facility] Comment on above: Performed By: #### C DP #### [address] [place], [place] 2079283 Concrete Layer: Lakhwinder Tim MD WBC (Bld) [#/Vol] 6.3 10*3/uL Normal 3.5-11.3 [facility] [place] [facility] Comment on above: Performed By: #### C DP #### [address] [place] 5135083 Concrete Layer: Lakhwinder Tim MD Vaginitis DNA Probeon 2023 Anca Negative Normal NEG [facility] [place] [facility] Comment on above: Result Comment: for Anca sp. Method of testing is a DNA probe intended for detection and identification of Anca species, Gardnerella vaginalis, and Trichomonas vaginalis nucleic acid in vaginal fluid specimens from patients with symptoms of vaginitis/vaginosis. Performed By: #### C P, LIP, CDP #### Lab [address] [place], [place] 1191583 Concrete Layer: Lakhwinder Tim MD Gardnerella Positive Abnormal NEG [facility] [place] [facility] Comment on above: Result Comment: for Gardnerella vaginalis Performed By: #### C P, LIP, CDP #### Lab [address] [place] [address] Dr. [place], [place] [id number] Concrete Layer: Lakhwinder Tim MD Trichomonas Negative Normal [facility] Comment on above: Result Comment: for Trichomonas Vaginalis Performed By: #### C P, LIP, CDP #### Lab [address] [place] [address] Dr. [place], [place] [id number] Concrete Layer: Lakhwinder Tim MD Source .VAGINAL SWAB Normal [facility] Comment on above: Performed By: #### C P, LIP, CDP #### Lab [address] [place], [place] 0125683 Concrete Layer: Lakhwinder Tim MD CT ABDOMEN PELVIS W IV CONTR Marichuy 11-27-2023 CT ABDOMEN PELVIS W IV CONTRAST ADDENDUM: EXAM NOTE - Needs AddendumDr SeamonszCORE: Dornida Joseph, 11/26/2023 11:56 PMCOMMUNICATION NOTE - Speak [...] MD 11/27/23 Edited Result - FINAL Normal [facility] [place] [facility] Basic Metabolic Profon 11-25 Anion gap [Moles/Vol] 8 mmol/L Low 9-17 [facility] Comment on above: Performed By: #### JERALD KAUR #### Lab [address] [place] [address] Concrete Layer: Lakhwinder Tim MD BUN/CRE Ratio 18 Normal 9-20 [facility] Comment on above: Performed By: #### JERALD KAUR #### Lab [address] [place] [address] Concrete Layer: Lakhwinder Tim MD Calcium [Mass/Vol] 8.5 mg/dL Low 8.6-10.4 [facility] [place] [facility] Comment on above: Performed By: #### U OSMINO, UAX #### Lab [address] [place], [place] 0807[address] Concrete Layer: Lakhwinder Tim MD Chloride [Moles/Vol] 101 mmol/L Normal 98-107 [facility] Comment on above: Performed By: #### U OSMINO, UAX #### Lab [address] [place] [address] Concrete Layer: Lakhwinder Tim MD CO2 [Moles/Vol] 28 mmol/L Normal 20-31 [facility] Comment on above: Performed By: #### Josesito COLLINS UAX #### Lab [address] [place], [place] 7193383 Concrete Layer: Lakhwinder Tim MD Creatinine [Mass/Vol] 0.6 mg/dL Normal 0.5-0.9 [facility] Comment on above: Performed By: #### U KARINA UAX #### Lab [address] [place] [address] Concrete Layer: Lakhwinder Tim MD GFR/1.73 sq M.predicted among non-blacks MDRD (S/P/Bld) [Vol rate/Area] mL/min/{1.73_m2} Normal >60 [facility] Comment on above: Result Comment: These results [...] Performed By: #### U OSMINO, UAX #### Lab [address] [place], [place] [id number] Concrete Layer: Lakhwinder Tim MD Glucose [Mass/Vol] 88 mg/dL Normal 70-99 [facility] Comment on above: Performed By: #### U MICAO, UAX #### Lab [address] [place], [place] [id number] Concrete Layer: Lakhwinder Tim MD Potassium [Moles/Vol] 3.7 mmol/L Normal 3.7-5.3 [facility] Comment on above: Performed By: #### U MICAO, UAX #### [facility] [address] [place], [place] [id number] Concrete Layer: Lakhwinder Tim MD Sodium [Moles/Vol] 137 mmol/L Normal 135-144 [facility] Comment on above: Performed By: #### U MICAO, UAX #### Lab [address] [place], [place] [id number] Concrete Layer: Lakhwinder Tim MD Urea nitrogen [Mass/Vol] 11 mg/dL Normal 6-20 [facility] Comment on above: Performed By: #### U MICAO, UAX #### [address] [place], [place] [id number] Concrete Layer: Lakhwinder Tim MD CBC with Diffon 11-26-2023 Abs. Basophil <0.03 Normal 0.00-0.20 [facility] Comment on above: Performed By: #### U MICAO, UAX #### Lab [address] [place], [place] [id number] Concrete Layer: Lakhwinder Tim MD Abs.Imm.Granulocyte <0.03 Normal 0.00-0.30 [facility] Comment on above: Performed By: #### U MICAO, UAX #### Lab [address] [place], [place] [id number] Concrete Layer: Lakhwinder Tim MD Abs.Neutrophil (Seg) 4.02 k/uL Normal 1.50-8.10 [facility] Comment on above: Performed By: #### U KARINA, UAX #### [address] [place], [place] [id number] Concrete Layer: Lakhwinder Tim MD Basophils/100 WBC (Bld) 0 % Normal 0-2 [facility] Comment on above: Performed By: #### U OSMINO, UAX #### [address] [place], [place] [address] Concrete Layer: Lakhwinder Tim MD Eosinophils (Bld) [#/Vol] 0.20 10*3/uL Normal 0.00-0.44 [facility] Comment on above: Performed By: #### U KARINA, UAX #### [address] [place], [facility]83 Concrete Layer: Lakhwinder Tim MD Eosinophils/100 WBC (Bld) 3 % Normal 1-4 [facility] Comment on above: Performed By: #### U KARINA UAX #### [address] [place], [facility]83 Concrete Layer: Lakhwinder Tim MD Erythrocyte distribution width (RBC) [Ratio] 14.6 % High 11.8-14.4 [facility] Comment on above: Performed By: #### U OSMINO, UAX #### [address] [place], [facility]83 Concrete Layer: aLkhwinder Tim MD Hematocrit (Bld) [Volume fraction] 33.2 % Low 36.3-47.1 [facility] Comment on above: Performed By: #### U MICAO, UAX #### [address] [place], [facility]83 Concrete Layer: Lakhwinder Tim MD Hemoglobin (Bld) [Mass/Vol] 10.8 g/dL Low 11.9-15.1 [facility] Comment on above: Performed By: #### U KARINA, UAX #### Lab [address] [place], [place] [id number] Concrete Layer: Lakhwinder Tim MD Immature granulocytes/100 WBC (Bld) 0 % Normal 0 [facility] Comment on above: Performed By: #### U KARINA, UAX #### Lab [address] [place], [facility]83 Concrete Layer: Lakhwinder Tim MD Lymphocytes (Bld) [#/Vol] 2.70 10*3/uL Normal 1.10-3.70 [facility] Comment on above: Performed By: #### Josesito COLLINS, UAX #### [address] [place] [address] Concrete Layer: Lakhwinder Tim MD Lymphocytes/100 WBC (Bld) 36 % Normal 24-43 [facility] Comment on above: Performed By: #### Josesito COLLINS UAX #### [address] [place], [place] [id number] Concrete Layer: Lakhwinder Tim MD MCH (RBC) [Entitic mass] 27.3 pg Normal 25.2-33.5 [facility] Comment on above: Performed By: #### Josesito COLLINS UAX #### [address] [place], [facility]83 Concrete Layer: Lakhwinder Tim MD MCHC (RBC) [Mass/Vol] 32.5 g/dL Normal 28.4-34.8 [facility] Comment on above: Performed By: #### U KARINA, UAX #### [facility] [address] [place] [address] Concrete Layer: Lakhwinder Tim MD MCV (RBC) [Entitic vol] 84.1 fL Normal 82.6-102.9 [facility] Comment on above: Performed By: #### U MICAO, UAX #### Lab [address] [place], [place] [id number] Concrete Layer: Lakhwinder Tim MD Monocytes (Bld) [#/Vol] 0.64 10*3/uL Normal 0.10-1.20 [facility] Comment on above: Performed By: #### U MICAO, UAX #### Lab [address] [place], [facility]83 Concrete Layer: Lakhwinder Tim MD Monocytes/100 WBC (Bld) 8 % Normal 3-12 [facility] Comment on above: Performed By: #### U OSMINO, UAX #### [facility] [address] [place], [facility]83 Concrete Layer: Lakhwinder Tim MD Neutrophil (Seg) 53 % Normal 36-65 [facility] Comment on above: Performed By: #### U OSMINO, UAX #### [facility] [address] [place], [facility]83 Concrete Layer: Lakhwinder Tim MD NRBC Automated 0.0 per 100 WBC Normal 0.0 [facility] Comment on above: Performed By: #### U OSMINO, UAX #### [facility] [address] [place], [place] [address] Concrete Layer: Lakhwinder Tim MD Platelet mean volume (Bld) [Entitic vol] 10.2 fL Normal 8.1-13.5 [facility] Comment on above: Performed By: #### U OSMINO, UAX #### [facility] [address] [place], [place] [id number] Concrete Layer: Lakhwinder Tim MD Platelets (Bld) [#/Vol] 253 10*3/uL Normal 138-453 [facility] Comment on above: Performed By: #### U MICAO, UAX #### Lab [address] [place] [address] Concrete Layer: Lakhwinder Tim MD RBC (Bld) [#/Vol] 3.95 10*6/uL Normal 3.95-5.11 [facility] Comment on above: Performed By: #### U MICAO, UAX #### [facility] [address] [place], [facility]83 Concrete Layer: Lakhwinder Tim MD WBC (Bld) [#/Vol] 7.6 10*3/uL Normal 3.5-11.3 [facility] Comment on above: Performed By: #### U MICAO, UAX #### [facility] [address] [place], [facility]83 Concrete Layer: Lakhwinder Tim MD Magnesiumon 5 Magnesium [Mass/Vol] 2.0 mg/dL Normal 1.6-2.6 [facility] Comment on above: Performed By: #### U MICAO, UAX #### [address] [place], [facility]83 Concrete Layer: Lakhwinder Tim MD Urinalysis w/ Microon 2 Epithelial cells LM Ql (Urine sed) 0 TO 2 Normal 0-25 [facility] Comment on above: Performed By: #### C P, LIP, CDP #### [facility] [address] [place], [facility]83 Concrete Layer: Lakhwinder Tim MD Mucus Strands 1+ Abnormal NONE [facility] Comment on above: Performed By: #### C P, LIP, CDP #### [facility] [address] [place] [address] Concrete Layer: Lakhwinder Tim MD Urine RBC's 0 TO 2 Normal 0-2 [facility] Comment on above: Performed By: #### C P, LIP, CDP #### [facility] [address] [place] [id number] Concrete Layer: Lakhwinder Tim MD Urine WBC's 0 TO 2 Normal 0-5 [facility] Comment on above: Performed By: #### C P, LIP, CDP #### Lab [address] [place], [place] [id number] Concrete Layer: Lkahwinder Tim MD Bilirubin, SemiQt,Ur Negative Normal NEG [facility] Comment on above: Performed By: #### C P, LIP, CDP #### Lab [address] [place], [place] [id number] Concrete Layer: Lakhwinder Tim MD Blood, Urine Negative Normal NEG [facility] Comment on above: Performed By: #### C P, LIP, CDP #### Lab [address] [place], [place] [id number] Concrete Layer: Lakhwinder Tim MD Clarity (U) Clear Normal CLEAR [facility] Comment on above: Performed By: #### C P, LIP, CDP #### Lab [address] [place], [place] [id number] Concrete Layer: Lakhwinder Tim MD Color (U) Yellow Normal YEL [facility] Comment on above: Performed By: #### C P, LIP, CDP #### Lab [address] [place] [id number] Concrete Layer: Lakhwinder Tim MD Glucose Ql (U) Negative Normal NEG [facility] in Hospital Comment on above: Performed By: #### C P, LIP, CDP #### Lab [address] [place], [place] [id number] Concrete Layer: Lakhwinder Tim MD Ketones Ql (U) Negative Normal NEG [facility] Hospital Comment on above: Performed By: #### C P, LIP, CDP #### Lab [address] [place], [place] [id number] Concrete Layer: Lakhwinder Tim MD Leukocyte esterase Test strip Ql (U) Negative Normal NEG [facility] Comment on above: Performed By: #### C P, LIP, CDP #### Lab [address] [place] [address] Dr[place], [place] [id number] Concrete Layer: Lakhwinder Tim MD Nitrite,Ur Negative Normal NEG [facility] Comment on above: Performed By: #### C P, LIP, CDP #### Lab [address] [place] [address] [place], [place] [id number] Concrete Layer: Lakhwinder Tim MD PH,Ur 6.0 Normal 5.0-9.0 [facility] Comment on above: Performed By: #### C P, LIP, CDP #### [address] [place], [place] [id number] Concrete Layer: Lakhwinder Tim MD Protein Ql (U) Negative Normal NEG [facility] Comment on above: Performed By: #### C P, LIP, CDP #### [address] [place], [place] [id number] Concrete Layer: Lakhwinder Tim MD Spec. [place],Ur >1.030 High 1.010-1.020 [facility] Comment on above: Performed By: #### C P, LIP, CDP #### [address] [place], [place] [id number] Concrete Layer: Lakhwinder Tim MD Urobilinogen,Ur Normal Normal 0.0-1.0 [facility] Comment on above: Performed By: #### C P, LIP, CDP #### [address] [place] [address] Concrete Layer: Lakhwinder Tim MD Surgical Pathology Reporton 11-20-2023 Surgical Pathology Report (NOTE) Path Number: [id number] -- Diagnosis -- UTERUS AND CERVIX, HYSTERECTOMY: [...] No further masses or lesions are identified. [employer] sections are submitted in 4c as follows: 1 anterior cervix 2 posterior cervix 3 anterior endomyometrium 4 posterior endomyometrium. tm Kay Lewis/sandra2:11/21/2023 Microscopic Description Microscopic examination performed. Processing Lab: [address] [address] Interpretation Performed at [address] [phone] SURGICAL PATHOLOGY CONSULTATION Patient Name: BARBRA CLAROS [facility] Rec: [id number] [employer] [facility] ANATOMIC PATHOLOGY [address] [facility] [place], [place] [address] [facility] Coding Summaryon 10-25-2023 Coding Summary HTMLBase 64 RcqfggvvUNy1zIr+PGhlYWQ+P F8GUJLdZ46yaOXsvF6lP5IYQZ lOSywgQVBQTElOSyIgbmFtZT1 kaXNjZXJu IC8+GN0dWQEhSduqpBBgg4A6n WT8B20ccz2jBFqrvZE3PZZwRv Bqtffup2uewIc8GXcmFyjgIeT t GDUkcC06FSV7dI05Qj77sFLac WBsa9gqgDk5CqPuHJXiMRQ9bT aeMSkvc7WmHNQnN40fbSWvm5N 6 BBFkzNraxFTfJqJcwRU6iA7sU Uxmicqns3qgeuaiIwf3yt34vO Vou1R8eST3N6RqlxE4EEKenRK g GkrkjATKrF6ddlhlr6ywbtzfJ mAnLZPuSEr2NKq8YFVveHizNr EzHH00QFM9EPMacrXrT0CmAXQ s mIozDqF8b4P1Ej4DR7MHWqtdT 1VNTUFSWTwvdGQ+BK02uj37N6 VbHlqcEgs5TGYaXRL4sHW2oC6 n QGRuJXfnu8A7mIT3K3TmljZjh i4od4npRKEkAMcaP36jbORfu0 O9VOCyhOI7QCIvjXhuXjCfhG1 3 Oyc+JWVmtCtcc0MzRadif8prt 9swsFb2YnekJVWvecQzkDllWS G2i5YdGq7xSLMjwKG4lBO9eA1 i SnNhJnX3PGjoE795YnLttNXqS vheI96mW5KnfKI+EFGnGao0KO XytJupUB7xJ9YcPVVtbmkatAH m rAtePA7hRMFksnqfAZRboY6jD ICgQ4g5QfMxPeM5GCmoU2DkCM PnnrkxLg18eD3aZzZbMlM2MPu u D5ByjuL8HVXtnMLcNHyzWHY8D 31da0X0MJXuUZWwHUG8kJF7lK 1hbGlnbjogbGVmdDsgdmVydGl j VLaiGLlbA263ZMGhyNueVwWjP GluZyBEYXRlOiAgMDUvMDgvMj AyNDwvdGQ+XNFdKPB1rIkgEYP n hFLhYVwxKl3bxYcxxJohVE6fG OYgzursKZXnyE3mTNAxfUKgsM icGX9xGBUhchlae148SlYhRIH 0 HUWhxQMdN8AcgA0hZjTfQAIfE MYsO4TjkXGoKRymZ617XInuAv I7OFUucaUkN9DjRZYmaUuxBeQ 0 o9S1Wa2Xe0XjohnyY4WwnAKvE yMcLqtrMSc6Q9AlEisbdFY+PC 26OCBoEN67CUv3APA7qIuuUFl i GKRlL4YsxL4cWuMrYKXvXZUkW yc+PHRhYmxlIHdpZHRoPScxMD XsSpEtyCpfFV5aRn0fAVBwAQF v eBmliTSuClOsp8zlSEPvBXonK Y9qzWqcP9WkrTL9VQAsk9o8Ch 26T07qQ8KagUT+XSFiwGP0bIL 0 mM2eNeMpEqC8ZYswV932OdSya HGuGdksq7qoi4xxdXj7GlE1LY XhmeVqrBhjRMP5b7ZcMh15V28 s IHdpZHRoPSIxNSUiIHZhbGlnb o4avH6eZu4+VJScfSA1gJM2dF 2fWtYrMcU8MMjzP190GxTcdXD v Akcea1yut1lzhWf1SgFqXKSoc zCqeJeuUFL4b6ZfVf03U7FlkW fhb5YrZhk9ts56uYJix3R1oYQ 9 N4RdRSOxcrzmfOPihGdjPN4oB GLywxfcALVkqN4kGBRxI9o8Ba GjFqE1CGfhP4EscxO8AFSgtXF g QDUaqSODhY4zqiiui1hizbwaC dJrWXVsADm3SLh4WGObhWokTk IzBBP5OxH4RVS1uAEilC5sxOl n nzicnD1bEvw+PTH7hZWzrVGPZ N8oPcqcpHC+TJGjGSQ5rVbhFT vyDSNnuC4vAINhR1i2ZkCeNgI 1 KSipE8BmblJ6JKGxkCDiGWJuv IMDyC4ptzlxv2lvpcbuZfGvYQ PtFKt8RDu3QDAfoTaiSfCwCIQ 0 KdG7SDJ7tQElrL8aqWgrsnsqj G9wOyc+GmapnMvyHKW7WAc4J0 OhSke7CZZioWsjQD1qjPLmXFp u Tm4riJwicUwnMY2cJNHlurivu 512WxIlq6ykOIQxsHLbYQkaYI W7J05vt0Q9HIDvIIVfXMY3rLQ 4 jX1izDnpfnwcsJLbcGdtfrKvn YllVUytBUpaF038BJKgrMrwVx IjSQg3X0OiNqq9FXNqlYgoWQ7 n mUFnFZtqJu1hnIyotMjfIB2aX KUyiyhqc912CkXwa6raSGNsbN LfNJpjEVD8V79ng6B7QSHwRYO w SUS6mLC7dD4ouGqxqmvmbORos FpuqkOmeGjxIFkrZFuxK527LG HcmJpyAdRkmWl2S1UiZcf6PTD z rKzbTW3rfPXuZBapCh2amDddg VwyWV0oUNQutcdnh128QmJyb3 vhVEBggJRsJRqnNXM4M84wg6W 6 GLGfSHQmXQY1cTQ3uV0pcWxgc jogbGVmdDsgdmVydGljYWwtYW kxY015AVDqcGowBeSnhVgiimK g GBjmVQm0O4HzVdkjpGH+PC90Y JZuHY09mYVojAIuw0mxhAa1Lg XlFBLsUEG7aCemAWifx6MgYSC t O53pqNLtx2U6HRDjzCyzoWPlO xDoeGC4yU9yZUriairhx2hndu bdMwugl4rvgd49aN24B59wTCa p MVUdLGZhLHFwJWLbsSlgtz8eg G9wIi8+NRTwaIQ1jBD7nS9aSJ KpPkF2MLwuL214XhYceXRxAqi j u7uza0hlgYa9HnX5OZAuzhKmr TkjYGS5l5PdFc27M90aMMmsQE SxSQWwBKItKTOpnMfpdh7ndT4 w Ii8+SYLcdTL3mGG1lE0fXoEsW aK2XFgtW461XnMucBIyHlxvB7 2zC7CvbCO+CTUpZpc7ULDqsWn s SR2cjDGpZBhiWr3iIFT7DfQdX bZzWUktL4XuFHLvalmrccouiZ D3FQYzYHCkdL05Se9rkCdwCTL w eLVGfJ2kppkjp8ohzqdrViCnI DDkZSc5SNq4GZKpxUkdKaQpBS L8KgI0ALX4hGExrQ2fxLtnfwz g qN6wK0WnXVAdxnlvQm96zZ7wH lLuQwA0ZQlgOgy+K7eBG42CGU EXRXZIUD4ZGRZANRgCMlfplRV + TMQdZFE9yWbtKLzxGVXwwH5oT UXvD3b8MiWkQeR7UCatU6CkZV QjxeggOt36lK4vCmUaRzJ3CNv u W7FqjkO5FOYjbVDnPBmhPTV1Q 17jy1Y2VFNkRZTeNRQ2iVT7cW 1hbGlnbjogbGVmdDsgdmVydGl j EPlmENqmY719YDOseQgjPiImI pH1WxL8LNE7F1EeRoa8PMCidX jhKS6lrKPxHVojZo5dsFbkgSt g IB9hGMKptalqBVEoiA3qFVHnx TPffBjtGJ9dPAPnlehfy526Ik PnLVA2UUFbxRUwB0RzfE3jXaF j OIQbJZPiE3TkiUNtEDhiY471N BdmAgX1PBIhzoFzS2GzGLAnoO nhYcO7v2N9Ks6qIKGMJODmynk v dGQ+USDhRWX4nVbdHYwlQPLfj B8nOQDyA5i8NjDiMlY6WNbkC7 BtFRMmuffjVo91wD3vUyNkVgU 1 LFydJ2DsgqK4CDNxqRBeJDhdV EW8G60yq4I8JGOgGETiXRS1aR M7uF3ldTfhujtplBUqqTsojyX y vBupHAutUSzcS062BQSqhVkkV kZFTUFMRTwvdGQ+WSRvBRD9kQ grRJemULVugY0nCMJsW9c5OqM w JzN0XJpwZ6OyRXVgcnerSo51p W7oVfKuPcL4HZnlE0AlcgH2EM GpwEOsEZwbPIU1B33cd7L7IEH w PKAuTBW3eFO7kK0ajTcjjqfxl GVmdDsgdmVydGljYWwtYWxpZ2 27ZHBdcVcpAy7FTV98UM66C1S y PjwvdGFibGU+PHRhYmxlIHdpZ RRhXWmpWGAwJkHgaMukUH5kEz 8eSGFjQQEuyTnrgGQkQcRvn5s s PTEhVTrjFY7stWdjL1PuzRI8V YRex2y8Vf16B16cH9SkfIC+PG SbvZW9iCJ4tH2iLbXkVaQ7IVd p I497VjIvlDIzOogck9kcj4cyy If0CmZkNXLdpvVaoQohDPP6w9 RbOc73L03wGBdnUKEdNDSqJVN i BITcuEpmck7xmV4eJw7+PGNvb RD5vDB5tH6aLwMaPqR3EAhiB6 28ZmJvdIRmIyefK63eN8VgiMN + YANgUyx6EDFjvVrpZJ1moTGnW IjqJh2pZKI0JjErZkDnJCdgO0 CrFVWzgnmplybzcVO8BSYiIGV w zH04Zr3lwPslOa4zMXGhSEQ6M VOrcMNxB4ZdnZ4mHcLzEQRmNV ZgM5DvdWGxUPybL889LHltFsF 7 FEUdvdSoD6TpETOwcBniDkC7y 5Q8Dr3QoRceuRYxLJ9fBfEvOB j8N1CgGcr6JSVceYpqJR3rlUR k OYwoSk0uvCyseVfxSF4pVYJle hkvq970WvVrt1ynZRKkwECgJY stBXZ0U89th9D1NAQqUPYoKSD 7 xLJ9zU1leMxxmibdgOUuvZuga xWweKyqPJpiBAqlQ075GNOxfL hnKsMVGha9T5PhQqg3TPYlpIm s NF5gjFLdFFbfXg4hmYlsbKraG V1iAGEjkjpye184TlTda6oeIW GouHUpZJuuVDZ8J51yn9J4SAC w FVPgFCM3ySK4iV2teAtnfdczm GVmdDsgdmVydGljYWwtYWxpZ2 78CYAfjLoxVl7TLiz5O8YoBvl 0 PJVujGpdUR8diWLqSZdoPm1wg UgbgOqiZB1hISVqcvime054Sc Eud3qwWUBcmDSmHPdbXZA4N52 s v4M5KJBeCJGuFYL8lYM7rF7sv GlnbjogbGVmdDsgdmVydGljYW uyODwyB545WEPnyWhyUpXhdMX y OjwvdGQ+WD00uw55O7HqWajsR qt5WSPnVNF8dEX6vC4hESLwDG taz5Q2hJX7G5TwsnQxmr1mi5u s YXB (more content not included)... [facility] ED Clinical Summaryon 2023 ED Clinical Summary [facility] ? Urgent Care [address] [place] [address] [id number] Clinical Summary PERSON INFORMATION Name: BARBRA CLAROS Age: 28 Years Sex: FEMALE : 1995 MRN: Acct#: Visit Reason: UC - Wrist Injury; RIGHT HAND, WRIST PAIN Arrival: 10/18/2023 09:49:58 Discharge: 10/18/2023 11:14:00 LOS: 000 01:25 Check In: 10/18/2023 09:49:58 Checkout: 10/18/2023 11:14:00 Address: [address] [place], [place] [id number] PCP: Provider, None PROVIDER INFORMATION Provider Role Assigned Unassigned Dalila Cotter ED Nurse 10/18/2023 09:52:49 10/18/2023 10:38:20 Juan Santillan PA-C ED PA 10/18/2023 09:53:30 Tova Parsons [employer] OPERATOR Nurse 10/18/2023 10:44:12 VITALS INFORMATION Vital Sign [...] with Orthopedic With: Address: When: Provider, None [address] [place] [id number] DIAGNOSIS: 1:Right wrist sprain Patient Understands: Yes - Patient/family/caregiver verbalizes understanding of instructions given Comment: [facility] ED Patient Summaryon 024 ED Patient Summary [facility] ? Urgent Care [address] [place] [address] [id number] PATIENT DISCHARGE INSTRUCTIONS Patient Information Name: BARBRA CLAROS Age: 28 Years Date of : 1995 Reason For Visit: UC - Wrist Injury; RIGHT HAND, WRIST PAIN Arrival Time: 10/18/2023 09:49:58 Primary Care Physician: Provider, None Attending Physician: Juan Santillan PA-C Comment: Patient Education With: Address: When: Follow up with Orthopedic With: Address: When: Provider, None [address] [place] [id number] Wrist Sprain, Adult A wrist sprain is [...] health care prov (more content not included)... [facility] XR Wrist Complete Righton XR [...] MD 10/18/23 10:52 a Technologist: LT LEIF [facility] COVID-19, Rapidon 08-15-2023 SARS-CoV-2 (COVID-19) RdRp gene MARICEL+probe Ql (Resp) Not detected Not Detected [facility] Comment on above: Rapid NAAT: The [...] management decisions. Fact sheet for Healthcare Providers: https://www.fda.gov/media/016028/download Fact sheet for Patients: https://www.fda.gov/media/941245/download Methodology: Isothermal Nucleic Acid Amplification Specimen Description .NASOPHARYNGEAL SWAB [facility] Flu A/B Ag Detectionon 08-15 Flu A Ag Detection Negative Normal NEG [facility] Comment on above: Result Comment: for Influenza A Antigen Performed By: #### U MICAO, UAX #### Lab [address] [place] [address] Concrete Layer: Lakhwinder Tim MD Flu B Ag Detection Negative Normal NEG [facility] Comment on above: Result Comment: for Influenza B Antigen. Performed By: #### U MICAO, UAX #### Lab [address] [place] [address] Concrete Layer: Lakhwinder Tim MD Portable XR Chest AP single viewon 08-15-2023 No acute process. [facility] RIS CONSOLIDATED EXAMINATION: ONE XRAY VIEW OF THE CHEST 08/15/2023 4:54 pm COMPARISON: None. HISTORY: ORDERING SYSTEM PROVIDED HISTORY: chest pain TECHNOLOGIST PROVIDED HISTORY: chest pain FINDINGS: The lungs are without acute focal process. There is no effusion or pneumothorax. The cardiomediastinal silhouette is without acute process. The osseous structures are without acute process. [facility] CONSOLIDATED Yair Clinton MD - 08/15/2023 EXAMINATION: ONE XRAY VIEW OF THE CHEST 08/15/2023 4:54 pm COMPARISON: None. HISTORY: ORDERING SYSTEM PROVIDED HISTORY: chest pain TECHNOLOGIST PROVIDED HISTORY: chest pain FINDINGS: The lungs are without acute focal process. There is no effusion or pneumothorax. The cardiomediastinal silhouette is without acute process. The osseous structures are without acute process. IMPRESSION: No acute process. [facility] Radiology Study observation (narrative) [facility] Portable XR Chest AP single viewOrdered By: Yair Clinton on 08-15-2023 [facility] Work Phone: Rapid influenza A/B antigens on 08-15-2023 FLUAV Ag Ql (Unsp spec) Negative NEGATIVE [facility] Comment on above: for Influenza A Anti gen FLUBV Ag Ql (Unsp spec) Negative NEGATIVE [facility] Comment on above: for Influenza B Anti gen. [facility] [id number] 08-15-2023 SARS-CoV-2 (COVID-19) RNA MARICEL+probe Ql (Unsp spec) Not detected Normal NOTDET [facility] Comment on above: Result Comment: Rapid NAAT: [...] management decisions. Fact sheet for Healthcare Providers: https://www.fda.gov/media/563778/download Fact sheet for Patients: https://www.fda.gov/media/856479/download Methodology: Isothermal Nucleic Acid Amplification Performed By: #### U JERALD COLLINS #### Lab [address] [place] [address] Concrete Layer: Lakhwinder Tim MD XR CHEST PORTABLEon 08-15-19 [...] Yair Clinton MD 08/15/23 Final result Normal [facility] HCG, ,Urineon 07-25 Beta HCG ( test) Ql (U) Negative Normal NEG [facility] Comment on above: Performed By: #### U HCG #### [facility] Lab [address] [place] [address] Concrete Layer: Lakhwinder Tim MD , Urineon HCG ( test) Ql (U) Negative NEGATIVE [facility] Surgical Pathology Reporton 07-25-2023 Surgical Pathology Report (NOTE) Path Number: [id number] -- Diagnosis -- A. GASTRIC ANTRUM, BIOPSY: -MODERATE TO SEVERE CHRONIC GASTRITIS WITH PATCHY MILD TO MODERATE ACTIVITY. -H. PYLORI ORGANISMS IDENTIFIED ON AUDELIA STAIN. B. MID ESOPHAGUS, BIOPSY: -MILD REFLUX TYPE CHANGES. Lakhwinder Tim M.D. Electronically Signed Out [place]/07/27/2023 Clinical Information Operative Findings: GASTRIC ANTRUM BIOPSY; [...] A, B. Microscopic examination performed. Processing Lab: [address] [address] Interpretation Performed at [address] [address] SURGICAL PATHOLOGY CONSULTATION Patient Name: BARBRA CLAROS [facility] Rec: [id number] [facility] Leostream [facility] ANATOMIC PATHOLOGY [address] [place] [address]. [place], [place] [address] Normal [facility] Coding Summaryon 06-22-2023 Coding Summary HTMLBase 64 AlbdyaepKVp4bXg+PGhlYWQ+P P2GOPGtF75qxPJitY7sM7XCRV lOSywgQVBQTElOSyIgbmFtZT1 kaXNjZXJu IC8+DT3xYQTzOwrwbGVnn6Y9j UP0A71lpx7sOAhtcTA8CQZdPv Ykzptmu4tzyUk2MHmoLiebKbG t KEGykF83MFG3iC10Nj55bJMcf BOal8djuEm8IrLnXEFbLNK8dU buBXhxe0MbVSSvB62qfHUga2C 6 BATpcOxksMJbYrEtmLL1eS7rT Hstcsyaq4qjespbWrt7xt91nT Xfm7L7zHJ9M8VvitH9UATaiMW g BcdztEXRxI7mbmnwq4czefhwF bXnSGRiSHz0EXt1ZXPakMyxCh MnXD51CRC6FVLtdaPuD4LwXJI s dEdgAiK1c9N7Vf5FH5TRHpfkU 1VNTUFSWTwvdGQ+VQ06kr95T2 XrGyqxRpj3ALFbDMR6mCH4sO3 n UZPgGFryt8V4gOQ9H5OcedYky t3yn3fyBPDkFGckB26jhAEaa6 C0OVFtrUF2PWWjmExcDeZrnH2 3 Oyc+DIGpgGcqp3EbFijex0jqq 8haeDd6BdhkHJCbgdSbcXhtDA M4r4EsSu2gKAEcqUR4yOV5uQ4 i HsFiCtY0BAlyK028LbVhbVZiS oztA74tJ6BmbVI+YYQtXuj2KP SjaKkaKT3oV5KlZDYwfsojvSN m wItjLC1nUVYkxqqaCOXyyV0tL LIfX7j7LmMfGbL6XPvkM1NcAC DigqydPr83mP8eRrLgYvD7ZCj u X3CvwmV0UHDbkZOgBYhoFHR6B 08kk2A4MMEaNHRjCQD7dVB5pX 1hbGlnbjogbGVmdDsgdmVydGl j UFcwZKisS023XKYkbEgkCoBcS GluZyBEYXRlOiAgMDEvMDQvMj AyNDwvdGQ+WQAzFTW1qDmsVZG n iOYuVQpvNj0jlHnzqOwiZI0mI WWcscueYFZphY0nDFIknIZlsO leWP5mKNDayuoul290ThVgLWZ 0 RSQsiFUtA2RjcO5uDoMpBMXfT SDtI5OpgJImRCswQ545QIlqFf C8UTMqbbNbZ3YoEFFwcLkmXcX 0 p1O2Pt0Ap4IctvnfW8CwuAZcO xWnVixkQGa2P6WxZerygZG+PC 44SHKtFM33RVe3ABG4eKxyQEf i BYGtW6SalA7tJdWxRMKqSSLlD yc+PHRhYmxlIHdpZHRoPScxMD PwOiLejHzgEO1eFe7mBEDrXKI v uDptwYIuImZeq7gqJDWeKIjwD M1vyEwyA5WwiWA6HUDzg8u9Dy 82B25rP1CtzLJ+SYYseWA8fHD 0 tV4oDaRzWhO5DLmeJ782LbNof VPbBrqbk5xft6niwUx9FfB0CB VfxnGtpNrgOXE2y9YrLk32P34 s IHdpZHRoPSIxNSUiIHZhbGlnb n5dtL7aBm2+FZUfvKC0rWN6pJ 3tTvQuEsQ4JAkaC011GdFwkAJ v Mmacl1irv8qclBj7CdAjIIUrp eAheHcqGEC8n2WiYc82V3SbpP taw2MyXic0vu79nWUne7B4nJD 9 A6TaRGLahtdciFAhxKjeAW4dC KAghoejPCWndP2tIZOcZ9z9Jz AuZnQ8UWpmR0SvmbX0BNEqlZH g YNRloVZHuT1pzotnx9hqnryhL zLwLKAuIGn0KWj9LMQhgUzjHb BwIAS9LgX8SYK4fVJqzX2wbUa n wwuwdD3cBvj+JAD6mXVjnKJUQ R1xXdnleEO+YBHkDGC1nQqwLS kvFGSzkN9vNWSnJ6n1PcWxIdF 1 NEvpO5HyarS6GHNlbDOyBUDqc NAEpU1njodut2bknratKjQdPQ SfZLo9STt5DHQohHzlTcTkEZZ 0 YnQ1ZXP5gQMamI6aqScdavftr G9wOyc+YbnivGsjWMH6NNg3S6 FfTqo6ZOFmcNdgNL5zhIXkRDi u Ci2btOksgRsaBQ1rQXTnajrbi 846BdKpl9iqRIUdqHKyOHldKI Q3V20xb0T2GHDyHNHxVTC4hRU 4 oO3djOemopqezKQucKqvncQcj TxySGjiFKwcW796SGGfxVakEg XfVQf7O6VfLhw5UOTkpSmbBS7 n gCXwDYngAb9niBztdPwwSM8iT EXfsvocb346PhYpc5ajXFLszV KzIHgmITG7M39lz0Q1TQVtVQV w EMN1hBL0iI5wxHvmipoouQAnh AsnlmRjcYfiTBtyQCuoO884WV EhcGslBgEqyIl5J3FwEry9DXA z zIdoVT9yqNJjOGmoTw6qzRbzd FcwLC7wTTHxbeatg090YeBii4 pnZMKygGApAVphDIN3Q75dx2P 6 RCWmQIUpBZG2yLM4aC8cjCheo jogbGVmdDsgdmVydGljYWwtYW cdT646JUGetHdjQgArwFpqviG g ZGhdVRn5R0ZwJtufjGQ+PC90Y DXgUQ69pPYbcQBgt8hmyLk4Xt DfPNMoOHN2rUnoZElbb3NwMRH t Q64wiXKeo3X5NACbvLnubVPoV eWrwWH2wB0gSJemcoadl6rqmr peKmrfa1oefx72iM10O76pAHq p OGGjEKYaEHNxDYJvnYncyo3ah G9wIi8+BHJluUX1iBR1uD7nOC NzZrI4EDkdB307AxBgaSTdKks j f9fwg9awjKf5TrR0SJDdxdDpa YhuZWO3j2YqCl61V78kEWbpFQ GuALHjQYYhPKRrqUtesc9nbG2 w Ii8+FKLjnTP0qBB1eS6iGiTmL yM3ZEjlG112PcAzmUFoRborW6 4aG0NgqMV+DTTcMio9WSEdlUs s YO5pvNWkVJmpSh6zFCR7AeJlU dDrLOavW9VmPIPqznnajfkmbQ Y0DZAzXSGpjH88Fk7azGmqKZW w oCGBeT4euaelr8wkxlzsUvSqP DTeHHf5VQz5CMKcuGvmKzEkJL M7QlT3JCR9pPIucL4xfSzqfni g mR0fD0MvPJPgfsbbOj50oZ4mB zAySeN4NXlsLts+N2yAE10VDY PLHGTZBL2AUIMUEFmSQgaxpYM + GTSzYAH6bOchLCukDVAazP1oA HRbS2j2EwGvSlS5CKdiO4QyIG WzzpjlWe51xB3fHjJbDtD5GDp u S2EeauO2XZJuzMIiQVzdVYT0A 50pc4V2TOEkVLZkFGQ5pPW4cL 1hbGlnbjogbGVmdDsgdmVydGl j VBzcKOngV017OPCoiSxoRzUyC wT0XiI2XLM6T6HjCjf9FOFfhA fxZQ8hrMUxDWxuWy4ioRcelNm g IK5kLCKcapjsQXNltW2uNRGkz KJnpZzoFR0mFQLawpfmy194Tk EkVGM2RLExxGOtX0HqtE4uKsM j ONIbNYWoK0QbbVMcRJxiU926I CoiCyQ5TZIbevZhB8WpTUMemP dcMjW3w0W9Nq3tNrOBDGRwjvt v dGQ+FLKrKAT2pBorOTzuOSZmn Y5nMMJcB7z1VsJjHoT6ZUtpY0 OzOGNegkpuNj57fU7kAdUnIpI 1 HEfdO7TgnhL6TZNxtUZxKLmgV RD1Z30uf8K7TISzVDXiCEP7mH N0nS9blXpxbpvzvZSunEgnooV y mKceMPmcKXxvW838PCYzmNtfF kZFTUFMRTwvdGQ+QLZcKJI4kV ekEJjcISQwnM9xGORyR3b1QwZ w WgY4HMioM6SlXVXuilpoOr64t A8kYsBlFeS5TYdoZ9HfzcQ4QC AagYPwXEprZWQ8W80zi0O9LSS w DIBrSMG9pEI3wD8frQrdobycv GVmdDsgdmVydGljYWwtYWxpZ2 56PVZakQeyFjPnQIGeOR7twFn v dGQ+MU40gn57S3NnDaygIjg7Q LToSHF9kSX6fI9gIASeLWflf8 P9bBH3X0CvkrOxwj6ah6xxOEK z FVepU13sdXMpb1P8JETtiMM8A DKwuUdvTrOdwY99Trr+PGNvbG xxz4WcAmqae2pzs0svhYa5BrT w GBHzgwNcaZycPKF4e8OjAo42G 29sIHdpZHRoPSIzMCUiIHZhbG vffr3nnD8fQz0+FOIobMU9dDO 0 sO8hGdNdMsL5VQzgN678RkEhz LChZibuw7vxl3ghzHn7GyDxJD QnxhLoaQscYGK2o0GqUh93A8R v zBlyw1FnIwf4fh15hWMhn5O4m TD8G4VpVSHifngenHTszQesIP 1oCXQydmnnKARwdR5uUIOaO1b 0 UyWtVhY5YHigG9FlnmD5TZBlb CHmYMEwnKYLaR2kqvlxg5jzga otRtXvAQYiNHy9PFc3GSEjoRz u FeUeIFG6GnX3BRH8dAAlpP8sy TwnlznbzL3oAmc+QEm8y9peqT OsNJ4eoWD0CN63HY42sVFaa4R 5 aGQ8J4LfPVPgzvlahxjsuZT7R CJkFFUkmO36Xd5ncIqgNo1uWD RqHDM1WWWmcARuO5LqaJ1hHaO j WGVfTGJbL5OukGFiFAihR935I OgrWiD5MVGhqgSxG0TgQNLqtF sjZkF8g4R1Yo5DAF25UD57WV7 8 mWWgk0C1kOZ4O9LfZZCktamdd dbudRW7OVAdWKXipH03Gn6juB bmEs5xBKRzSEG3KMBfiWKoD5E v mM0jWnYdATSkOCNzN9MpnNAiT XdkH792HFpkDrR8BADjtzGrL4 XtESMdyQehXyE3f8F0Dd9AKm1 6 KE22VJ42fYAbu7F1tET6C1DrX YQipwgiiwzfqTJ3LFVlDVVfpJ 81Mv7yoPdiIv0aXMYjDPI1MFJ p kQLwL6MnrN9sBoXvUNDwSPTzY 3LtyKKxONuaK472OAvwAoD9GV ImuhJnR2VkDUVirGfyUgU6v4Q 7 Jw1ESAlggsi1F5HmEjsqzWB+P A62ABHuIO27sACdqRXki2aemN d5TiKfSCGeQYC6hTlyVZqgj9U k ZXI (more content not included)... [facility] Coding Summary HTMLBase 64 TghidtcuAZj7rWc+PGhlYWQ+P M5RNYDtO54yiBAmuV7tY7HYYR lOSywgQVBQTElOSyIgbmFtZT1 kaXNjZXJu IC8+UO1vEFPpUsnrtEHaa8D7p XU2Q61fiw2dTRzcgSZ4SNXqBz Fihwxka3xizRz7ONewFrpvBhZ t FKBlmV29ORH3vL56Rd41vIJbb XNwi5kehNm6ZpZqOTEuSDK1rT azPXvzv2CdUMKoE79peNIti7F 6 SMWrfGpcsHJbLaUeaPG3hT0oG Tqkznvjp7dulehbFqy7dd57mJ Ncj9I9oPE9G9BwdeE6FCXmnHY g TvzawQQOsY4cjnejq4qklivsN bDfLCUsNMt1ZZo6QBMqjVqlVu IuHJ25IQT0QHBxwuZnM0DaSTS s vHnpFyP4v4Y5Cq0JG8SWIxxyP 1VNTUFSWTwvdGQ+AO16kw33B7 VhQqsuOvc7NSVbJUW7yXX1pZ8 n TGErZXmtf4V0gAQ6D0LbrfWou l2uz2oxXILeCKdjU28kqHQvw2 D4SFYkeMZ9RZAujFqwGuNpdO4 3 Oyc+CJIqmLjjk1PkUjlef1vlc 3hxhYc6LzmnOESdwpKcbTpfTA A0u0YhQa4uLUVqqRA8sEZ8kJ4 i UhOyCyN2KGyoT275BbMixQDtZ zesN15uQ1OlgXB+RQJaNja6RD PgwTtuRX2lS9PmUKCgrobgbKA m vDebJF8xPYGhziexUPKqgJ5nT RSgC1a3UkPrPkU5ORzwF4VrEH WrpcphQf98lE7uPmHsEvW4EQs u K9DqbfU7VDXbbOWzRKlkDDP3O 85fs1K5IAMiZNBuCCT7tMU3cI 1hbGlnbjogbGVmdDsgdmVydGl j RGpfQFhiT456KBEzxZslUqCdP GluZyBEYXRlOiAgMDEvMDQvMj AyNDwvdGQ+RKFwILQ2oAjeIYH n nERlBCocTi5xhFhelGgwSQ0gY OMylvmqDDZygI0sWXWxsKTylE viKL2hRGQjgjmxf264RiVcEKF 0 BDPbtIQmF8AcwA7bHeFfEBEfJ RYkK6FayFIwRKuqY699HGuzCs I2ZADrwoFbN5ZnKPRswEifHxR 0 z9P9Oz1Br6DwehctS1FivNXsT xZwRszfFFf3P7DsYmitmSZ+PC 47TFGlPJ93MFa1JHH9vMrmTGi i EVTfY6IolA3iLsMlWMJdABPfH yc+PHRhYmxlIHdpZHRoPScxMD CeVfGtvFjtFL3rAz7oDQQfFYV v xXbkjXLfAnZgf8mlJOLuSRweU Y7myDrmR8LexSU9TVVqt4u1Do 78H87nG5IowHQ+OEXrcMO0sHW 0 dP9uEeAoSvI6BReuF155MyEbt RZqVqwbc9gvy5mkgSm1RwP3GZ ZiysZikKfuNQV3d3FjRw97I54 s IHdpZHRoPSIxNSUiIHZhbGlnb z0urH1pOk7+BCPfoSP7pEJ4cV 4oDhAxJxA0XUuuU090WgEjyXK v Bmqmo4nhm3kxjBi0NyXeBOMmx sMrqEglNJW3i7GiYe66J7FodT mmn1VhDlv9xq35mNWbz6W4pDC 9 E6ZcVQJjhkprgOJppGzrCD2qC MCgqgjpPRAgoZ4oNCHuE9z2Hj WhKbB2CDarJ6UvjsT9TYTkoPB g QGAknJKDxG1vrxobz5gqtifwY iXoKMQxCOn2BMs0YYPbpFwpOp RqKMZ1XqL5XZO8vWPcjT5ivAh n gwdeiU7bKkz+TVC7hDYcfGVSF F3uOuqagST+MWJzAJO0xAgbLR ovERKzjK6xDTOmQ3y5InIgDtM 1 MXjhF8VmxlY5WIKtkDZeDWVzj FEMrH1uwyhgd9iuhjaoDtIvUR EsIZd1NFs1VYHxcLwtTeDcAHT 0 MbU3GHX0iNHvsD5pcFrinawox G9wOyc+FfeazOnuQZQ9MXk1L4 GcPov7QMFwxPjqRF1udWGnKVi u Vb0dqHimkGzvAW7dUQDpqxigb 523ZfZxq9dwGOVzuVFnHJcyZP T9U09ke2L9AJUqCLPjALB6wME 4 jW6soGawcgkvdRMwmBlixhAle PxzARrjRBpbE429DGMepNocXp RqSZl1U9JjRcd6IIFxyNnaDO1 n tUJiWGwvPy2ihOrgxCiiYX8jY MDwsjpla389UtZjj7dvEHEcuT NuAAuiVJE8X65tj8G9XVXlTMN w LDA6bOX9kG3eqAuedvzqrWObf LfyihPpbIiyHPixDFtjK687JP WwtYvgLoViiHq1S2BpVzx4PLX z lLqtHZ9mnWSgXIkaTv6ybYkue QyzIH9rQORincxao444JnSyd3 meYIApwELjTNkvODQ1B52js1Y 6 NFHfOYBjQRZ0xZI6nP9xjYpqh jogbGVmdDsgdmVydGljYWwtYW xfM303TNWywUrfVfFirYutigT g HNscUFl4Q7WwMxzyhWP+PC90Y FRkEK95iONvwXLmb5ixsDm9La QmZVTkWNN2qZrhYDjtj5TcIYX t Z89gwPWki8C7ORWpwIljnAVwF sRtjPM3oD6jMQbbamocr8vpyj szBefre1ilmf17wF34P92rKNx p GHZdISEpSCJwSJKvqYrvuu1zq G9wIi8+TNGniWT0vQX7qL1pML SbBwS2VPszG944LdNtyRChUxn j m8dqt0rkbRx4ZhI8BWQxtdFwa FofLMG3y1SoUm76F30aQBbdUX XdSFReYWUgDRFbcNoeje3lkQ1 w Ii8+VYEowJG2bYN5zX0eFzHmP wK2SFcsL338NrXbeYGhJjoqN6 8qP2ZsaPA+NSInDhu4MLUoeGu s XI4bxQOpNDcxIc7iNNV0JzRkN hSxAQaoJ8NzOJOawbojsdlhtS E7GBUwTEWccS14Eh8ccMulDDS w sXOThR8givglp1gfljoeUjVgI OTbQPw8BBr1LONjiOkvEhCaLG K5OnE8OKP6nPBbdE9fkQvvyih g kY0bD7YtXZNrldijLp21pE6wK dIsPxB5QMuaCcz+A0aUW65RRM AXMEWEOY3NCPLITKqVKzffcHH + OBUfWVM7gNzdANmrKNYxtF9lR FZeM8y0OdJcEvQ4LYfsM7XnGW ZwykkeNz11cS3kPtMhVaE2KSt u U1JfkyI2CCBxdQXxNXfiINI7A 42pd2K4PJNsWPInQFH9zOS3oB 1hbGlnbjogbGVmdDsgdmVydGl j ABnfQVkpJ360NKYqiPdcWkSxG bH6BnH0WMB1Y2YtCuq7UUYsmV flME6vpJAqXUlbCg5lgZvhvLw g MM7sFINwhzlsVAXlmR1mOIHmo ABtkNzwHH0nVRWtjrujl536Mn SxRJF0SXNrvPCyV6WmyN2dKzP j UWGlBJYmG1KgzSEyMJtfN459Q YyxArZ0ORBshcOqK4LxSPBbrK gzSeW1w0V3Tg3pLrSJMGOcmkc v dGQ+IZNhWLD5zZwqPZqpDLJaw G1gYFLgL6r2ToOqNfD2EAniN8 FaVQRoeeluKu22aA8rEwTvNmQ 1 NOrcQ0RdvcG2OYDrtOToPNbbF MP3A81hh3R6JGXrVBJrJPP1aN H0mG5rdRqjblomfHFnmZpbpoH y tFojWJtlRQvaL731OLNsyXebZ kZFTUFMRTwvdGQ+EGOrIWY2nZ exGRuyECMcgL7tREWmM0z0ArA w OvM1PXurH0BvSGTuckrwHa95f F5fZmAsArP0WHbdG0VlozE3BJ ItmGOhIHceIQZ5H47sf4V5JED w UMAfECP7pRN1kW2daRurtvasd GVmdDsgdmVydGljYWwtYWxpZ2 73TVZouIqfYpHzJCLyTA2twHs v dGQ+KY80bq54Q5YkSbodKol6W UDzZKT1tCQ2oQ8aIEXgWFjoa7 N9zFD1P0VhxkZotx4iv1nsNUY z HRffX04trKDao3S1GIZczVV5T YZjrJdwCjYdaI16Dmz+PGNvbG rsr3YiJgxpd6rpd9gixHo7BqZ w QCLevgHnqPklUYU1v0XvIe03L 29sIHdpZHRoPSIzMCUiIHZhbG jwli0pnB6oCi0+ASQooBO8xJN 0 iC8sJgYsAmH7TDlbD191BeOqh XUhGskde7uwe0pctRt4NsGlAD DzyuOhvZppKLV4a8MoHp07S7P v cSlyp6OsUbb7hw85tNKrq3W3a OC5J1YjJWFdpsdwaSAerCigPX 4zBDEjncvxATAkqU5lAZPxL7j 0 BxVyIiA1AJqvY3VjosY9LMCen EHwCYQgvESNfD5osobur7pajk doOwQmQSBfXCn8TFs6XXOpdZu u UhTyFHB8SbL7RDN4rXIhyQ7ef WevznbtvZ6hKke+BDc5t5ytvW HxWC3gsBB2MN71MB09cTBqe1K 5 rYK2R7JvCBQdeyvroqzxsDR7P NJzNMDqdR44Iw4kyXuwLc0wNL CfQSX5JZIjrTFuX4OzsV9sZbK j IGEqQCQtE6CmaJFdBNewY509J SbdFuC7XCFgacVfP1KeMIOeaM pcFvQ0s0P4Bv0WDA03GF38GL1 8 oMGaw8R9bRY5X2LvVPNkfosnf rhsjEZ9ESQfMFNpsO03Vp8nqE nzAi0cRSQtAEC0IQWjdKKfZ4T v aS6fCyOzJEIvXGAdV9PcrGRxF JhrK731LJbyMqN0NJByiwZxO3 LkYEZcxOpyAcU8h8F2Th2YHn8 6 RP24KP62yUJfu6O7uYU9L1XtS SBfldnhbvyxzSX8OTRxULOvqY 71Yp5ctExiGi0oJKYkEWX7IBI p uNJsU3KwkF0rSdIlIRWwZKLjA 2OlwWZcXIfcW011CFqvStE6EJ UaucRkO8QnJQVajMndJkU8y4X 7 Oi2RLUlfjaf2M1BdVjsiqTA+P E53SEDaUO98nPYobCUnl7agzW r8DeMkCIKiMBT4cGkxOMclv1N k ZXI (more content not included)... [facility] Coding Summaryon 06-16-2023 Coding Summary HTMLBase 64 EwbwvulxZMa4uTt+PGhlYWQ+P O0YSDFhK92iaAOxvC6qM0TAFY lOSywgQVBQTElOSyIgbmFtZT1 kaXNjZXJu IC8+AN1yMMAmGdrniBUik8M2o NM9L74vsb5hICyvpZJ9STQjYc Fuxyidr6nlwRw1WWlfZkghDdH t SIQuaH74MTM4oX66Mb48tYQdv HFzl8frxVd7GgRpNNZoSXQ0wW gvPAvnd9JpUEXwA61noFOeo6Q 6 QVOpcSxiuXOsYaRqwQZ6wZ4dD Lzelagvw5ywjvotDfk7qd33nN Vle0H8zKE0P7OzcyN4LOVfpCL g OsovgFHZhZ1cdwpya2aqrqrhJ lApCIYbCBg8BLy5CFUpcBomWv XvNJ74GDW0WYUvdiOuK5WvVDS s gEnaTtR3p5L5Fu5PO1RTJuftC 1VNTUFSWTwvdGQ+GH20qu86J4 QgAzmkBft6HDQeIAA8iET7fT4 n WIEeHFwbk3C8cKC9R5EyerPfb d5sz4onXSQmZXxrM72vfFBkg2 I1BFSfmKP4TQComPaaMlWaeE6 3 Oyc+FHQhrChzh6QsNyerv5upj 4vpbZt1GfgiYQWhefHrlDkpZJ S9s5EgOp9nYIMynAW3iCY4wB5 i DfZfQeU8THvnD765ImKopRJwG dlvN48uH6EaqDJ+RCZzOgt1SZ GmjEitSY3jM1AcHERstvaswLP m hWfwWE1gQEKdkaeyRFBjwU3vV EVlG7d0KyJcCyJ0FBbcL0AdLA RhbqpnOd24dI8xWsFnGrS4WSz u S1NvvdY4EKWpqHMqBJadMVQ9J 75dd2M4GDFsOHZjWZH3fLO5mV 1hbGlnbjogbGVmdDsgdmVydGl j VBapSCkxM998KMHeqRjpMdCsU GluZyBEYXRlOiAgMTIvMjkvMj AyMzwvdGQ+OZKkZZB6jRnpMDD n oACcQPgnWk9wrWoomTwtLB8dF RMzdrdbMXVbmA6bSRBydTUikK duDY5vCHPphqkkm594DxFeMVU 0 IHGmwPCgQ4EmlM4lJmJpURVzX EQrB0RxlTMzAGivK424LIoqHc C5SBMphtXsB7RwHIDyfSrnQfN 0 s6L7Xj3Dc2IwkmxhB2CdzREpU mGnTqycIAp0I0DsCvdsfVR+PC 16EKRqQE33FBg4SSM2bOxtCXq i HDEgJ0MuzJ8yVnLfJGCeLQByK yc+PHRhYmxlIHdpZHRoPScxMD DbJlGxaBvvFC0oCl0jGWVkIMX v dYjliIJuLeXjk4dxEMDrHMxvU T1shWzgE4HoaGW6CTAwq5c6Al 78D25jZ7GbwJZ+KZNqvWU7aDZ 0 lG3tJaZnLoE2XEhtR325XdOst OEiPesfl9wck2ytnGr9NlF6SB UncsMewHfuHXZ2k9RyAw47P42 s IHdpZHRoPSIxNSUiIHZhbGlnb i3qjI1dRo4+IYWpuMA0iGR9vV 9aUcBwKxL5VDmeW909GkWxqOH v Pelhj3cgz2vyaOr2EwNnUGQdr aOuzVycOSZ4g9LrYu26A8ImxK buv0KoQcq0ip33pGUoh6K3vXV 9 R6YdPEHdgwxkrZWboQyoUW9pF UByfjpnBKKsaB6sBQZiR9u3Up XnRhB2XAnaW6RzzdP8ITIebSJ g GHFmjOGEbA0jtdmgn4myvstfR rVvUWGnWWg7PEh4HTFrdLjpJt RxKWL6LzS6SUD9sWRasW9xpAt n pguphN5cQax+JAH6kEUztKDGI K5eQtfnlMX+DIKuEBS3cEjdQS wkOLHqtX5uBCHrS6z2WlUcGzY 1 SCwtP8RajdA0MQDzfTPsSYQoc DZXyX8boxzry4mpnwnhKdQtGO WgYCk9DQg2FCHooDouUlZlQPV 0 KuC8SJE5cSGdcA2jhIhxxqxja G9wOyc+AovgqXoyKCP3CIk4O0 EkGcn5IMTuhRfcBK5llQQnOVc u Iv8sjUdopAajTV3tYZRyjduzt 262YaPjz6deLYPdpUMcHCbpVS C6J43ts3J5NXQzETKqMDV4qBU 4 iZ1skSrlmdhypLZkrKwhdoCkq IvzEWdlBXjdR561GOFhkDbrHm PlAEf7X2OjJkz9KHUdzAonWL3 n nUDdYZomXp3vyDjxrSfuDN3qY FWvqvnty410HwTza9kiEICocL DlAXtqWVM4G81gb7W8YFRlTRL w UTY3bAV0zD6wfUejrubswTCnd RsedsZdeGygJJonCZsgA790GE KxbGomIyXzbCo5R4CsVxt0JXU z jIktGQ8reBHoVStnEz1epErbx EbmFV3mAMDmivnbc033RpKqc7 spMRUcaIUkLPnkQVP2B72ez8U 6 HSXdPMQgJSZ8gXM4nE3egTvze jogbGVmdDsgdmVydGljYWwtYW pnW739AUHnwBduLmJbjQtzzkT g FKftUQy0N2OyGasahXQ+PC90Y KUrEU02rKCqaCMur1obqWb1Np SvVOTjKSY4eUqsMVouh3GmJMK t A82qoFRdc1G5XDHyxEzztXKmE nNafWT4wU6rYVmwgoevq6ikof brUjvay8genf56tE01L22mKEn p EXGnGZRaRWXjINNjnRreyq6ey G9wIi8+UHBbjID8zMD7iS2fNM VtWzM9GFucR473OdOzvQRiWgt j f4swu6jhgYw6MzK7FXIlyqNlu XtyIRP0d7VrXl83K79yWJreAC OqJVAoRZTqGAGuvIhpad5mnA9 w Ii8+HLXpdXE8xWE3cO2mVzZwD hC0ILhfQ929PpRuzHWtOknmO9 9gA3EpqUG+QSRzMmk5YMAzmDh s XJ1sxAOeIWcwQq7iHIZ9ZwVtC iZsWIreO7KhXVHlcesediwdkA R6FMJwJDZpjS86Bc5mvMpfEVL w pKDEdC4qtcjbl9zydaggOqDaY HEnFZs6MDk8CUUruOfdVaLgBP C4MwJ4GSI0fXMkxN2ugQplswa g cZ7pT8UcTZNtlsypUz20kF8gJ iTrUpU2IDibPec+E4iHP69TWQ SYSICEUV0JVDJSWLdABmrvjHY + ZQDaHNV4tCylUOouMEKpqG2eY LPlZ4n7UrFqFeS6XWjlQ2DxRI VfipfxRb38rF3hTfEdLyQ5KSx u Q4YbntS2QHDlcCKaYArvVXP6K 64bq1Y8TFIdTQJgIXY6sCU3bM 1hbGlnbjogbGVmdDsgdmVydGl j DNhtHZxcR158NKCbpCknTcKtT eD7SfM0WIS8M1PoAtx6BFOryF liWD3liUJbZZhdVj4ixReqmGa g WS1dOSQazfdpGPNxyL3hVEClh CNsyXksTC4aQKUpnuqwe254Uh EaDZO0BLZlgWRuU2DeaJ5dOnE j PKPyIWItC8RtkUHzJUwmN616S BleXkU6ABSprvJfY2EzFFUjhU eqUfT9i6U3Qr4bRuMVYCHiilf v dGQ+ELCtYZO0zSqoSQhgGCNzl P4fRBJiV2n3KrFfBfO9DMegQ2 VaSXKijogbGx75iO8yQySsExX 1 SVtdX5FhgbX4GZDbtMIeUAyyR SQ5W28vj2V6JBNdECReTGC0nF S7rI0kiJdnrmdhjXAseGlqjtA y lImzFJpeCQtmZ746FPNczPsbL kZFTUFMRTwvdGQ+UQXqNNO1xV wqBCbiNHRxyZ7oQUTtY9q6XhU w CdP3FWyyI6UpZCWgdhxsPz52u B5pUvBoUaT8FYlnH7RhceZ5MZ PxtAEgWGcgWFK1K51id0G2ZWI w DCOoWUN5aBI7iI8cdEeardtmz GVmdDsgdmVydGljYWwtYWxpZ2 91RSByyYlaGo7TCA65VK57Q5T y PjwvdGFibGU+PHRhYmxlIHdpZ DJiOUvxDNJjNtJluIvnZH6sXh 5qHYRtQTApiHqltUYcUfDbn9i s UCIaVGkfIX2lkJlxS1MpyLM4S EDjf4p0Rq10I58yL1DqzGZ+PG HqxTA9oJR3hF9eOqUkTjC8BZi p V906QbEduURxXsbxv3ysm1hmr Cv6CkJaNJJfvmIteAkuSIG1y1 LqFa83C13yDRtiSYLzURHhTIF i MDVvnLovdd3zmN1aXc4+PGNvb NQ2zKF9eK4qQaUkNsN3YKokP2 56CvTyrYNyXyyjM01fY6OelDL + NRPhOaw0AVOifKplBD1sfSDgZ JudGv1eKOE1TkQpMiTbUMbwH6 GlLFCbkwjeoobwqYX3FYAbMQJ w eE06Vf9ulRifHw6qKDAhCMD3Q YNliSIwP4KmgJ9wIcHgEMMzFV VhM0OfrWNmSLyoM613BGnaAjW 7 DQXotcZuX3TwIXYdbBgrPdC2j 2Q9Gl7BpDeoyINdDE5hTcNoHG o3G5SgYqx8IOQdhEtnET7iwVR k PVbqSi1paAjldRlkAS0wIKJxi jrzi377EzQdg6soLKXduBOeDL ewWQJ9Q99pd8C7AXCiZLOuZYZ 7 tKI1bD9bmHoxclifkHFtiJosr dTfbYtoQGdcRSpyG962OEQeyY caIfBDLbj0X8UeOqu6TZEmbKx s YG2fiGHeVUxtXy7ynCwqdPtdY W0hBHYzqudor068FrPhe5kqTP HwuJDtRArjUGR0B77tc9E5ZMR w MBKsPHN1bRG1dE4zuYxtlbbeu GVmdDsgdmVydGljYWwtYWxpZ2 33BITnoCvbBg1PGhy4N8VhUtn 0 DLTvcJzvDV7jeXGwOMnkDy2qg LnkbDlhGF7eFYBjrrsel849Qf Rcf4hhKIAyjDWnZUjdMNV8R01 s m2T3EJHfGFZuFRN0hYL7sX6aa GlnbjogbGVmdDsgdmVydGljYW zrATfyU190KGYedYowMjPktLI y OjwvdGQ+UQ36uy76V9BcYlavP gq2CIYpERR0mLJ4xJ8cWQCgHE ron9Y1nGS3V1TyrpMzif4wb1r s YXB (more content not included)... Normal [facility] .Auto Diff 06-09-2023 Auto [place] % 8 % Normal 06-30 [facility] Comment on above: Performed By: #### 1 [id number], 20052537, 5468921652, 9773527, 5534136794, 7942996527, 3040052551 ####[facility] (DEFAULT)[address] [place] [address] 28871 Baso Abs# 0.0 x10 Normal 0.0-0.2 [facility] Comment on above: Performed By: #### 1 [id number], 96230791, 6580473746, 4947199, 5152643386, 0028229462, 7406642773 ####[facility] (DEFAULT)[address] [place] [address] 87557 Basophils/100 WBC (Bld) 0.4 % Normal 0.2-2.0 [facility] Comment on above: Performed By: #### 1 [id number], 28567372, 2000316485, 7052490, 7508908223, 0118705880, 6600516757 ####[facility] (DEFAULT)[address] [place] [address] 24176 Eos Abs# 0.2 x10 Normal 0.0-0.4 [facility] Comment on above: Performed By: #### 1 [id number], 16521808, 1900979332, 6039411, 7713859012, 0902835047, 3757529815 ####[facility] (DEFAULT)[address] [place] [address] 33914 Eosinophils/100 WBC (Bld) 2.4 % Normal 0.9-4.0 [facility] Comment on above: Performed By: #### 1 131718357, 73731448, 5063615182, 4130446, 3715705930, 6939447198, 2299953769 ####[facility] (DEFAULT)[address] [place] [address] 30405 Lymph Abs# 2.3 x10 Normal 1.3-2.9 [facility] Comment on above: Performed By: #### 1 861321349, 68817558, 8350694751, 2354654, 2070513307, 7436597612, 4591159482 ####[facility] (DEFAULT)[address] [place] [address] 61461 Lymphocytes/100 WBC (Bld) 35 % Normal 14-48 [facility] Comment on above: Performed By: #### 1 852935325, 13487485, 1609635445, 2114168, 7133319464, 1063694955, 4016500306 ####[facility] (DEFAULT)[address] [place] [address] 53808 [place] Abs# 0.5 x10 Normal 0.0-0.8 [facility] Comment on above: Performed By: #### 1 133534800, 16827882, 6138323927, 4196442, 8260306227, 5212625750, 1350802061 ####[facility] (DEFAULT)[address] [place] [address] 27178 Neut Abs# 3.5 x10 Normal 1.5-9.2 [facility] Comment on above: Performed By: #### 1 084756653, 26366631, 7876030882, 1028476, 4921590666, 7171682074, 7813506957 ####[facility] (DEFAULT)[address] [place] [address] Neutrophils/100 WBC (Bld) 54 % Normal 44-88 [facility] Comment on above: Performed By: #### 1 [id number], 34705404, 7526871609, 3516483, 8530223860, 5015419812, 5590877412 ####[facility] (DEFAULT)[address] [place] [address] CBC w/ Auto Diffon 3 Erythrocyte distribution width (RBC) [Ratio] 14.9 % Normal 11.5-15.0 [facility] Comment on above: Performed By: #### 1 092273071, 98663906, 5563371083, 1861484, 1013450090, 8877906664, 9644292326 ####[facility] (DEFAULT)[address] [place] [address] 18354 Hematocrit (Bld) [Volume fraction] 34.8 % Normal 33.7-40.4 [facility] Comment on above: Performed By: #### 1 936673723, 49888783, 2074662657, 7915601, 6230100784, 3447870132, 4879121078 ####[facility] (DEFAULT)[address] [place] [address] 72578 Hemoglobin (Bld) [Mass/Vol] 11.6 g/dL Normal 11.3-15.9 [facility] Comment on above: Performed By: #### 1 787786169, 41388751, 1772178355, 5601082, 3477305092, 7836154899, 5832542547 ####[facility] (DEFAULT)[address] [place] [address] Man Diff? Auto Invalid Interpretation Code [facility] Comment on above: Performed By: #### 1 832121569, 94627703, 3012004353, 5568670, 6166290174, 7821205322, 9302268492 ####[facility] (DEFAULT)[address] [place] [address] 92261 MCH (RBC) [Entitic mass] 28 pg Normal 24-34 [facility] Comment on above: Performed By: #### 1 679280131, 13272842, 9472021576, 9687773, 3994441046, 6881538814, 2298671319 ####[facility] (DEFAULT)[address] [place] [address] MCHC (RBC) [Mass/Vol] 33 g/dL Normal 26-37 [facility] Comment on above: Performed By: #### 1 [id number], 12932132, 4209935175, 4847637, 2020772386, 4053261181, 5920531477 ####[facility] (DEFAULT)[address] [place] [address] 49996 MCV (RBC) [Entitic vol] 82 fL Normal 81-100 [facility] Comment on above: Performed By: #### 1 978175571, 32475319, 3106217545, 5395819, 2281950668, 5592565816, 7158514153 ####[facility] (DEFAULT)[address] [place] [address] 25477 Platelet 227 x10 Normal 138-427 [facility] Comment on above: Performed By: #### 1 364398891, 29464172, 8351787631, 6515296, 7046509734, 5014674568, 8745282617 ####[facility] (DEFAULT)[address] [place] [address] 88887 Platelet mean volume (Bld) [Entitic vol] 7.8 fL Normal 6.3-10.2 [facility] Comment on above: Performed By: #### 1 071373549, 76404963, 2350977110, 8582845, 7475997522, 8141728427, 7546687755 ####[facility] (DEFAULT)[address] [place] [address] 50829 RBC 4.22 x10 Normal 3.70-5.30 [facility] Comment on above: Performed By: #### 1 402718837, 07129645, 2533960566, 5352114, 1003912394, 5430192172, 8511277417 ####[facility] (DEFAULT)[address] [place] [address] 95354 WBC 6.5 x10 Normal 3.5-10.5 [facility] Comment on above: Performed By: #### 1 713815215, 11398163, 8158472515, 1624098, 6803285168, 2321578403, 0626611517 ####[facility] (DEFAULT)[address] [place] [address] 81404 [facility] Standard 06-09-2023 eGFR Non AA >60 Invalid Interpretation Code [facility] Comment on above: Performed By: #### 1 563703206, 17958320, 9939101332, 1802704, 8182368618, 3900041993, 6712575059 ####[facility] (DEFAULT)[address] [place] [address] 68320 eGFR AA >60 Invalid Interpretation Code [facility] Comment on above: Performed By: #### 1 570632276, 26909301, 4937042608, 5970773, 6796790597, 0217759559, 1384568586 ####[facility] (DEFAULT)[address] [place] [address] 23056 Albumin [Mass/Vol] 4.0 g/dL Normal 3.5-5.0 [facility] Comment on above: Performed By: #### 1 978598655, 30163305, 9935532529, 6976694, 6154359715, 8627237610, 0668249283 ####[facility] (DEFAULT)[address] [place] [address] 45697 Albumin/Globulin [Mass ratio] 1.0 {ratio} Low 1.4-2.6 [facility] Comment on above: Performed By: #### 1 [id number], 94670774, 7109152221, 7949889, 1992631166, 5510790741, 4514574338 ####[facility] (DEFAULT)[address] [place] [address] Alk Phos 60 IU/L Normal 32-91 [facility] Comment on above: Performed By: #### 1 699308911, 19026314, 8817907481, 0568342, 2501335678, 3616409904, 2512238753 ####[facility] (DEFAULT)[address] [place] [address] ALT [Catalytic activity/Vol] 25.0 U/L Normal 14.0-54.0 [facility] Comment on above: Performed By: #### 1 537635162, 85804368, 0960652044, 7494239, 0801750508, 6297784638, 5229791679 ####[facility] (DEFAULT)[address] [place] [address] Anion gap [Moles/Vol] 10.8 mmol/L Normal 5.0-19.0 [facility] Comment on above: Performed By: #### 1 170440381, 29993809, 1192325673, 9426326, 9677591535, 4907471495, 1524479427 ####[facility] (DEFAULT)[address] [place] [address] AST [Catalytic activity/Vol] 22 U/L Normal 15-41 [facility] Comment on above: Performed By: #### 1 350702132, 87381045, 6047167156, 5788077, 4293817062, 3326565604, 5060204849 ####[facility] (DEFAULT)[address] [place] [address] Bili Total 0.4 mg/dL Normal 0.3-1.2 [facility] Comment on above: Performed By: #### 1 534653325, 84316022, 8638628359, 8986648, 6994836376, 7119113238, 0176194568 ####[facility] (DEFAULT)[address] [place] [address] 88273 Calcium [Mass/Vol] 8.7 mg/dL Low 8.9-10.3 [facility] Comment on above: Performed By: #### 1 366170680, 89575875, 1863738364, 4992820, 6598850516, 2201678550, 2060157751 ####[facility] (DEFAULT)[address] [place] [address] 83908 Chloride [Moles/Vol] 107 mmol/L Normal 101-111 [facility] Comment on above: Performed By: #### 1 301122395, 56460147, 0929579368, 5358830, 5672961958, 1497365253, 5206972963 ####[facility] (DEFAULT)[address] [place] [address] 24282 CO2 [Moles/Vol] 23 mmol/L Normal 21-32 [facility] Comment on above: Performed By: #### 1 933643104, 74903217, 6856835619, 9582171, 0785496379, 5142585709, 4923723800 ####[facility] (DEFAULT)[address] [place] [address] 82995 Creatinine [Mass/Vol] 0.53 mg/dL Low 0.60-1.30 [facility] Comment on above: Performed By: #### 1 079968901, 13367848, 7889946076, 0155230, 7702695434, 6169730199, 4968450869 ####[facility] (DEFAULT)[address] [place] [address] 37997 Globulin (S) [Mass/Vol] 3.8 g/dL Normal 1.5-4.3 [facility] Comment on above: Performed By: #### 1 643851912, 53510026, 7652859517, 1288009, 0584343364, 3402384274, 4661463935 ####[facility] (DEFAULT)[address] [place] [address] 08047 Glucose [Mass/Vol] 92.0 mg/dL Normal 74.0-118.0 [facility] Comment on above: Performed By: #### 1 012457969, 43598148, 9967883553, 6448857, 8930560852, 4084276433, 6928885677 ####[facility] (DEFAULT)[address] [place] [address] 39402 Osmolality 272 mOsm/L Invalid Interpretation Code [facility] Comment on above: Performed By: #### 1 045065597, 74435977, 7753525241, 1462074, 5796027200, 2196100106, 2670852101 ####[facility] (DEFAULT)[address] [place] [address] 89242 Potassium [Moles/Vol] 3.8 mmol/L Normal 3.6-5.1 [facility] Comment on above: Performed By: #### 1 221286439, 00895066, 2093074613, 4312332, 0100031893, 6783482128, 7826463533 ####[facility] (DEFAULT)[address] [place] [address] 46216 Protein [Mass/Vol] 7.8 g/dL Normal 6.5-8.1 [facility] Comment on above: Performed By: #### 1 268083916, 51772518, 5154507173, 9241868, 6288287050, 2502294251, 4896940843 ####[facility] (DEFAULT)[address] [place] [address] 07677 Sodium [Moles/Vol] 137.0 mmol/L Normal 136.0-144.0 [facility] Comment on above: Performed By: #### 1 604269934, 41580462, 7072304372, 4651593, 7164534905, 8126573347, 6263767334 ####[facility] [facility] (DEFAULT)[address] [place] [address] Urea nitrogen [Mass/Vol] 9 mg/dL Normal 8-26 [facility] Comment on above: Performed By: #### 1 [id number], [id number], [id number], [id number], [id number], [id number], [id number] ####[facility] (DEFAULT)[address] [place] [address] Urea nitrogen/Creatinine [Mass ratio] 16.9 mg/mg High 4.6-16.2 [facility] Comment on above: Performed By: #### 1 [id number], [id number], [id number], [id number], [id number], [id number] ####[facility] (DEFAULT)[address] [place] [address] 52877 ED Clinical Summaryon 2022 ED Clinical Summary [facility] - Emergency Department [address] [place] [address] 20357 ED Clinical Summary PERSON INFORMATION Name: BARBRA CLAROS Age: 27 Years Sex: FEMALE : 1995 MRN: Acct#: Visit Reason: Dizziness; Headache; MIGRAINE, DIZZINESS Arrival: 06/09/2023 11:32:00 Discharge: 06/09/2023 13:05:00 LOS: 000 01:33 Check In: 06/09/2023 11:32:00 Checkout:06/09/2023 13:05:00 Address: [address] [place] [address] PCP: Provider, None PROVIDER INFORMATION Provider Role [...] Home PATIENT EDUCATION INFORMATION Instructions: Migraine Headache, Tvww-[id number] Follow-Up: With: Address: When: Follow up with primary care provider Within 3 to 5 days DIAGNOSIS: 1:Migraine headache Patient Understands: Yes - Patient/family/caregiver verbalizes understanding of instructions given Comment: Normal [facility] ED Patient Summaryon 023 ED Patient Summary [facility] - Emergency Department [address] [place], [place] [id number] PATIENT DISCHARGE INSTRUCTIONS Patient Information Name: BARBRA CLAROS Age: 27 Years Date of : 1995 Reason For Visit: Dizziness; Headache; MIGRAINE, DIZZINESS Arrival Time: 06/09/2023 11:32:00 Primary Care Physician: Provider, None Attending Physician: Anjel Yates MD Comment: Visit Diagnosis: Diagnoses This Visit Dizziness ([id number]) Headache ([id number]) Migraine headache (G43.909) The Pharmacy at [facility] is open Monday through Monday from [...] alcohol and/or drug addiction problems; contact the [facility] 09/01 Crisis Hotline -Text 7ENHS cf [phone]. If you received any narcotics, sedation, or [...] and treatment you received today in the [facility] Emergency Department were for an urgent problem and are not intended as complete care. It is important for you to follow up with a doctor, nurse practitioner, or physician?s assistant office manager for ongoing care. If your symptoms [...] so we can reach you if necessary. [facility] Emergency Department has provided you with a complete list of medications post discharge. Please inform your sales property manager/provider of your visit and for further instruction on these medications. Any specific questions regarding your chronic medications and dosages should be discussed with your primary care physician(s) and/or pharmacist. New Medications [facility] [id number], [address] [place], [place] [id number], [phone] rizatriptan (Maxalt 10 mg oral tablet) 1 [...] This Visit (more content not included)... Normal [facility] Extra SSTon 06-09-2023 Tube Collected Yes Invalid Interpretation Code [facility] Comment on above: Performed By: #### 1 [id number], [id number], [id number], [id number], [id number], [id number], [id number] ####[facility] (DEFAULT)[address] [place] [address] Progress Note - Nurseon - Progress Note - Nurse Patient [place] to [place] [address]. Patient is alert and oriented. Patient is here for a migraine and dizziness. Patient has been experiencing it for the past two days. Patient has a history of migraines, which started 3 months ago after she gave to her child. [Electronically Signed on: 06/09/2023 12:29 EST] Leena September HENNA [Verified on: 06/09/2023 12:29 EST] Herevia, September RN Normal [facility] UA w Culture if Ind Standard on 06-09-2023 Breakpoint UA [facility] Comment on above: Performed By: #### 1 [id number] ####[facility] (DEFAULT)[address] [place] [address] Color (U) Yellow [facility] Comment on above: Performed By: #### 1 [id number] ####[facility] (DEFAULT)[address] [place] [address] Culture? Not Indicated Invalid Interpretation Code [facility] Comment on above: Result Comment: Resu lt created by rule GL_MAGR_ADD_UA_CULT1 Performed By: #### 1 [id number] ####[facility] (DEFAULT)[address] [place] [address]645 Glucose (U) [Mass/Vol] Negative [facility] Comment on above: Performed By: #### 1 [id number] ####[facility] (DEFAULT)[address] [place] [address]906 Ketones Ql (U) Negative [facility] Comment on above: Performed By: #### 1 [id number] ####[facility] (DEFAULT)[address] [place] [address] 61386 Micro? Not Indicated Invalid Interpretation Code [facility] Comment on above: Result Comment: Resu lt created by rule GL_MAGR_ADD_UA_MICRO Performed By: #### 1 [id number] ####[facility] (DEFAULT)[address] [place] [address] 88615 UA Bilirubin Negative Normal [facility] Comment on above: Performed By: #### 1 [id number] ####[facility] (DEFAULT)[address] [place] [address] 67641 UA Blood Negative Normal NEGATIVE [facility] Comment on above: Performed By: #### 1 [id number] ####[facility] (DEFAULT)[address] [place] [address] 24862 UA Clarity CLEAR Normal CLEAR [facility] Comment on above: Performed By: #### 1 [id number] ####[facility] (DEFAULT)[address] [place] [address] 41818 UA Leuk Est Negative Normal NEGATIVE [facility] Comment on above: Performed By: #### 1 [id number] ####[facility] (DEFAULT)[address] [place] [address] 26225 UA Nitrite Negative Normal NEGATIVE [facility] Comment on above: Performed By: #### 1 [id number] ####[facility] (DEFAULT)[address] [place] [address] UA pH 6.5 Normal 5-8 [facility] Comment on above: Performed By: #### 1 [id number] ####[facility] (DEFAULT)[address] [place] [address] UA Protein Negative Normal NEGATIVE [facility] Comment on above: Performed By: #### 1 [id number] ####[facility] (DEFAULT)[address] [place] [address] UA Spec Grav 1.020 Normal 1.001-1.035 [facility] Comment on above: Performed By: #### 1 [id number] ####[facility] (DEFAULT)[address] [place] [address]671 UA Urobilinogen 0.2 mg/dL Normal 0.2-1.0 [facility] Comment on above: Performed By: #### 1 [id number] ####[facility] (DEFAULT)[address] [place] [address] Urine Source Clean Catch Normal [facility] Comment on above: Performed By: #### 1 [id number] ####[facility] (DEFAULT)[address] [place] [address] ED Clinical Summaryon 2022 ED Clinical Summary [facility] ? 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 May use mhwp-bsp-berygdr cough and cold type medications, but make [...] verbalizes understanding of instructions given Comment: Normal [facility] ED Patient Summaryon 023 ED Patient Summary [facility] ? Urgent Care [address] [place] [address] PATIENT DISCHARGE INSTRUCTIONS Patient Information Name: BARBRA [...] with medication to treat cough. May use evcs-rua-lsfvzxi cough and cold type medications, but make [...] Medicines to relieve symptoms. These can include iijk-qss-gxpfcmg medicine for pain and fever, medicines for cough or congestion, and medicines to relieve diarrhea. ? Antiviral medicines. These medicines are available only for certain types of viruses. Some viral illnesses can be prevented with vaccinations. A common example is the flu shot. Follow these instructions at home: Medicines ? Take qrps-ure-dpqfvjd and prescript (more content not included)... Normal [facility] POCT Rapid CoV-2 (COVID-19) Antigen/ Flu A&Bon 06-04-2023 Influenza A POCT Negative Normal Negative [facility] Comment on above: Performed By: #### 6 [id number] ####[facility] (DEFAULT)[address] [place] [address] Influenza B POCT Negative Normal Negative [facility] Comment on above: Performed By: #### 5 [id number] ####[facility] (DEFAULT)[address] [place] [address] SARS-CoV-2 (COVID-19) RNA MARICEL+probe Ql (Unsp spec) Not detected Normal [facility] Comment on above: Performed By: #### 6 [id number] ####[facility] (DEFAULT)[address] [place] [address] Urgent Care [facility] 023 Urgent Care Record [facility] ? Urgent Care [address] [place] [address] PATIENT DISCHARGE INSTRUCTIONS Patient Information Name: BARBRA [...] diseases classified elsewhere (B97.89) UC - Cough ([id number]) UC - Sinus Pain or Congestion ([id number]) Viral respiratory illness (J98.8) If you received [...] with medication to treat cough. May use ndys-bjm-bzqmqya cough and cold type medications, but make [...] and treatment you received today in the [facility] Urgent [facility] were for an urgent problem and are not intended as complete care. It is important for you to follow up with a doctor, nurse practitioner, or physician?s assistant office manager for ongoing care. If your symptoms [...] so we can reach you if necessary. [facility] has provided you with a complete list of medications post discharge. Please inform your sales property manager/provider of your visit and for further instruction on these medications. Any specific questions regarding your chronic medications and dosages should be discussed with your primary care physician(s) and/or pharmacist. New Medications [facility], [address] [place] [id number], [phone] benzonatate (Tessalon Perles 100 mg oral capsule) [...] Temperature Temporal: 36 (more content not included)... [facility] Coding Summaryon 04-20-2023 Coding Summary HTMLBase 64 CotlscifIIj1nZs+PGhlYWQ+P D5YSTFpG15kzMTgwW6kL9ZGOD lOSywgQVBQTElOSyIgbmFtZT1 kaXNjZXJu IC8+MZ8jZWWfCtzseVKlb3M5i II1X32tqw9tFMlhuAL5LUBqBb Olxheyq2mlkZb0QUcvLklqXjT t UDTiyM38RBF4xL71Gn37jSOux FVun7tffFi7RoRhVBXoAQJ9mE ssUNoih3ImJECdX65gwNUoh5S 6 OCWqmBsraPTdToTtwTY7rU8oT Nzetkdtz4nwcguwExq4nr19jL Sdk0J4kBR6D5TksxZ5EKQucEF g HgbaiGXLgP1wncnom1heqobsM oEzGRIlLQs5RSx9RROsdSinQl NzTB20UOU0GFPmlxNlZ6JtGGQ s gYegWlL6z4U3If1NQ7TAYvqqT 1VNTUFSWTwvdGQ+WA50yc70O4 PtZbveOcx4YXJoDDK2tFC7oJ8 n YEIzIQabj6O7hGV0J9QyjmVjq u6rg4wgLFMmKNnpX05akMYno5 W4GZJboDM1FKNajYgbBmFkuD6 3 Oyc+ZBAqyXduy0UuYchgq9ynx 8itoJw1EpnwRPDijaApmNdbOH O8d9WeRa2dHJPxoKN3aML9gE7 i RaXnTpL3VTpdX361OmYrzPXtD ipmW60aZ5NlkDB+ZMMoYsw1NA IjfIotTA0kY1PgIWTcnymmxBD m xNxhQQ0rSWUzcxiwXWPcyI6oA WXcZ8b9GzXvRyQ3NIemE6ZlIO WkstotSw58tP9iFgYbBsC6TZs u I2NizpS8OTJjsNNmWEhbOVU5R 45yu3V7IZIuMHZyCQV9pZE2dW 1hbGlnbjogbGVmdDsgdmVydGl j PIreYJygW122EVMzcPodIoCcW GluZyBEYXRlOiAgMTEvMDIvMj AyMzwvdGQ+ZKQiZGR1wTkrYAJ n kNHyUEjbNq1gqDvqxQiuIM3uW TLoqnugAGUaeL4rULWuoPOkgN uyEL5tKEPufzowo832EyYgOTK 0 UKWscYTjA5MdfZ0vGfJbIFGhO DXbT1KrkEDxPNafZ949BOvaLt T1DXEdstDvY9FfWWLjkXxnEhN 0 s0F5Py8Qd3ZiwxziS1KavRObL rFoZxywOPm2Z9VgEbcpyDK+PC 38PWTfSU30EYj3MSU5zOdpSWw i OXUrJ6JjtB7mEwHbSWPtTFSgD yc+PHRhYmxlIHdpZHRoPScxMD EbEoMoiGmeGA0gEj8hJJNtDAG v yZsdlGSxCsFza6tnUPGeBBqxD I0lcQazQ6GcrEE1YVUuk1r4Je 11T04rN5AssFX+ABThmHX3dYJ 0 rA0aAgUaQbQ0RPgcV628GjEmu PExNzgay0mti0jgmNe8QpM1OP BvosFopLltLXU5r0TfUp18E23 s IHdpZHRoPSIxNSUiIHZhbGlnb i5kdJ0iFn0+GCVtmYP8qIR4aY 7fQaDtMzT9QFaaJ095TcElvQK v Kmuhx6mgv1ibfEq4NiVjBCSov wKalUrwTGJ7o4ChCd48Y5RhyC bmy0YmArz1ki20lKNqe7W2rVJ 9 C0ZmPYNppnuzlHNvmIdxLI5kU QGepdxxVNKeeH5yZTCsI3q8Zl TjPxD3BNlrP7HbkhF2FFJcoLH g GQQqbGULjS2pxzyot7hplifsR wKbNIPwVAj9EGg1VITliUwmAy TeZFU4ZtD1LQS6iIDobG3dkYn n gxeeeK6cCdm+NTI9lCCelXCUX P2oAunbbRV+WKHuQZH5wWifSW xgRVEveC1xJPXbC7s2GgTbTgI 1 TShaJ2KqayM6JKNwaDQwCAZsp WRMqY9hnuvkr7dwkyinIsMjQQ XnPVx1HCo7TYYshRzhKgGvVIF 0 EhO0LIA9eBLfgR8pgTluepwud G9wOyc+QglypYhfSLV7RSm5Q1 KqBzq5DYKowDsvBH2zwGEtXUi u Xd9laGfivKsdUV8sTXLtujcje 651VgUjc2gjBKVrlVNqXXxkJK P6D59lk6D5RZIkAFWhFMO8pCX 4 dP1twRhaioklgFTskRlcyaYww IkpRZexKKuvG149ASQlmFckVo YjFIj6A1VqWwi8JMYpjDggLV8 n sDPqRLlwEa5idUxeeChfYB5jN UYkqkxax835YnJbj3wyXJEzhK DfTUstLLS9B29ci8V4WZTbIKN w XSX4eDP3jJ7apRmvxfxpyLFuw RipjkFljDouKYtqFZmnR861RS MlcMffClBvsTy5Z2AkMtx7AVV z bUekZN0isCNnEZmbSj7htSjtt MepNN0tQMPscbofm264AjCfd3 feKDCvaILcNTlxHDY3G68bi0J 6 QURzODFdYVA2tUU9oN2jmZdfi jogbGVmdDsgdmVydGljYWwtYW trH687LWNmoBewWvVjdMrcpuY g KOyePAa3V9QoGnnffWU+PC90Y HOsVS26bMIytGLex3fdmBr5Ch VzOTVoVRH5uUppNAnex9RwFAT t J57doIIbl7Z1KTIqsYwgkIZhG bWxqYY4yA7zOAkcsxyba3vabk sdHcpms0phnc51iL95L60rHLp p YGIvPCCeQZTsUCPbqZoknc1li G9wIi8+YRGkoJN3rRD3oX1gSI EoOxC6QXipU831LvAxjARcCmj j n6qer0vbuRp8QwF2NWBiwkNgw SmwZOU2s8MiDi89X50jEZtdED YuKJSbPJMhFNFwsCrqoz2elJ4 w Ii8+OMQfmUF1bVU4bY4rRgDoQ gC3WEoxJ007JbAsgHWhAxhrS1 0bW1LvqXT+QBKtZzf4CNFvlXw s YI3lpCLiRLkkOm1sYPG6LfNkT nGsOIcsZ6DpDQZijaqdyoazmS Q2JLOpAWXpwQ10Wf5irRdoFIA w tONGiD2razplx6obfgouYyAvU YRlOSl2AUr5MGFrxMtwFtTyML D9NiG3KXY9sNIjwC4wxYnwckw g aS7iB3WgEZByfznkNm20tE3gW fJuRkE8MBldCro+D5zLX18BIZ XXBMDALT1HDQJPUZrXFvhrkUP + NSNdHAO3gIfpLFpaEPDgbO3hT UNvV3u1SaIpGlJ2CBdeC8RzON UlfumoFi36gX5qYmFiEzU9SKz u R1NlvcA6VNKfaTLjYVkuLET4P 38ez9G2ARWwMUJeHUC9bUC7kL 1hbGlnbjogbGVmdDsgdmVydGl j RLkyJYigU253STXoiChnJcVtR dG9FeB0SIV4Z9KcJmk1YIQzqX thAF6jkXAkTXvtYv5odZuleSr g JK2rCTDgulizVMZztO0gLIMsv OTptDlyUJ0vWTQalbnxm415Ca NxHAV9RPDesCOjU2CcpM8rOsY j CVHdLMEjE3XdaEPlUHthF367C JjxQuT2UZJzorUrJ6CzRCXswX gdNdJ0v0Y2Cm1uDiUQMHMaunu v dGQ+PXZbCKU9fUweTTnnSGBwn X7nDENwY1o9GnNuDhK5FLatZ8 PaVYZdqktsRy28wV9gZeWkMkM 1 JBmxV1WkicO3ZUMsrFMqIGuyW FM6O83ta2X3WKPpGRIaNES8yS Y3uJ5lnWboklufbYJouGawkrP y uUcxAChjCJtjA832VSGriNlkZ kZFTUFMRTwvdGQ+FAHjTAI1iK lzUHsoDEVmsO2jQPTkU0j1XqI w OhH3QDgyS6XnDBQleijfAd96n X0lVyCpFlR2XMvrI7PqetC2VZ WehZHbCPmzBKI6J40qy5N9HUE w VUBsSGY3jLY9lQ7sfRlnnvdap GVmdDsgdmVydGljYWwtYWxpZ2 77SMSwdJlrEqRmLDRdCK4xzBn v dGQ+MX82cc74Y7SsRznxEuh4S WCkAAB8kIB9bG1yPDDrNJzwi7 T3wTB2W8QaxaPftc8ka9baHYV z GRlsY85ugTJhj3C0JGWwcYW0Z OMouFxrYdKdvH11Jug+PGNvbG noy4JrZyajy1okf6uqcBv8FqX w FBRlfjQpjRjsHOL3a0OyBw84L 29sIHdpZHRoPSIzMCUiIHZhbG uzpm5ggC7tHz7+ENFcyCC2gCI 0 gH5fDnBcPqB5DMbqL135CuFro BOcPrblw0vwv2iikMa0NvUbHH KwihZokJlwAOB0d1DnEn79S6E v wAvde7JdDvv8ws57iLLhh7R0g MQ0R5EpQMDfbmkoaRRgjEicTO 3hCJMrcemhKKQytI9yLQOkM1h 0 IpVqUeP1DDgyC5HvmtV8SPIte CVnJDDfsRHOcU0avutns8nwvy yeKhZsCHPpLHu5FWv0EREkjOj u HhNxUWN5FcD5POX7zOKtmS7qt OdughtvkU3rFmj+PMe7g0zrnQ WiDO2gdJT9ML89QU27uLHzc9G 5 zKK2B7WxWPSjfdrynzojzEA6H LYeMGFfeP99Gi3bhCemOt4pAC QfRNM0HMAmaHBzJ0MltZ6cFtK j ZWVwIYChE8QkyWJkBPnzU297C KukChE9MALhipObE4PsWFKqbE bvEsK6c3A3Ad8MZI90LX06YR8 8 lVGkm6B5bJT6N0LbYYNowpsih dybnUH9TOEjWKVyvW43Rz1nrL uqZc7uBLKxHVY7BFKyeSLqV7H v oC3qNcWaIZOgVYIwN3NtcTJlJ EjmA156BVluPzS6LJShaqXkS4 KhZVJgaJlpHqW4y4I3Ua3RAb7 6 UH72QG82gJCrg7H8fLG5B8HwK AAyiyohwlvfeMN4YPUwGDQtnJ 93Ls7ehKbcFx6yPIPyZNK1DUK p bKKkQ0FxyI3wJnTeBIIbTGJmA 6MdqUOqYOpwU549YWrxOzK8TV NuowVkU6YrGZRrkOxlMjC1g6W 7 Gm3FPVywlzh3C6UkFhvnlCU+P O88NFLrTM46tVOmjVJeq0gzgA j5CfNhONZjRGO6nZtsGYrlp0U k ZXI (more content not included)... Normal [facility] .Auto Diff 104-16-2023 Auto [place] % 8 % Normal 1-12 [facility] Comment on above: Performed By: #### 3 [id number], [id number], 5519102, [id number], [id number] ####[facility] (DEFAULT)[address] [place] [address] Baso Abs# 0.0 x10 Normal 0.0-0.2 [facility] Comment on above: Performed By: #### 3 [id number], 5588410, 2267113, [id number], [id number] ####[facility] (DEFAULT)[address] [place] [address] 63304 Basophils/100 WBC (Bld) 0.4 % Normal 0.2-2.0 [facility] Comment on above: Performed By: #### 3 [id number], 5998672, 8820382, [id number], [id number] ####[facility] (DEFAULT)[address] [place] [address] Eos Abs# 0.4 x10 Normal 0.0-0.4 [facility] Comment on above: Performed By: #### 3 [id number], 0839118, 9993899, [id number], [id number] ####[facility] (DEFAULT)[address] [place] [address] 67238 Eosinophils/100 WBC (Bld) 4.9 % High 0.9-4.0 [facility] Comment on above: Performed By: #### 3 [id number], 1177777, 7416943, [id number], [id number] ####[facility] (DEFAULT)[address] [place] [address] 61531 Lymph Abs# 3.3 x10 High 1.3-2.9 [facility] Comment on above: Performed By: #### 3 [id number], 6561406, 6991836, [id number], [id number] ####[facility] (DEFAULT)[address] [place] [address] 31780 Lymphocytes/100 WBC (Bld) 43 % Normal 14-48 [facility] Comment on above: Performed By: #### 3 [id number], 4612640, 7614563, [id number], [id number] ####[facility] (DEFAULT)[address] [place] [address] [place] Abs# 0.6 x10 Normal 0.0-0.8 [facility] Comment on above: Performed By: #### 3 [id number], 1746715, 5061039, [id number], [id number] ####[facility] (DEFAULT)[address] [place] [address] Neut Abs# 3.4 x10 Normal 1.5-9.2 [facility] Comment on above: Performed By: #### 3 [id number], 2027946, 3519523, [id number], [id number] ####[facility] (DEFAULT)[address] [place] [address] Neutrophils/100 WBC (Bld) 44 % Normal 44-88 [facility] Comment on above: Performed By: #### 3 [id number], 0012178, 6245846, [id number], [id number] ####[facility] (DEFAULT)[address] [place] [address] CBC w/ Auto Diffon Erythrocyte distribution width (RBC) [Ratio] 17.9 % High 11.5-15.0 [facility] Comment on above: Performed By: #### 3 [id number], 9192185, 9815714, [id number], [id number] ####[facility] (DEFAULT)[address] [place] [address] Hematocrit (Bld) [Volume fraction] 32.9 % Low 33.7-40.4 [facility] Comment on above: Performed By: #### 3 [id number], 6670477, 3027735, [id number], [id number] ####[facility] (DEFAULT)[address] [place] [address] Hemoglobin (Bld) [Mass/Vol] 10.6 g/dL Low 11.3-15.9 [facility] Comment on above: Performed By: #### 3 [id number], 6348206, 0051210, [id number], [id number] ####[facility] (DEFAULT)[address] [place] [address] 58803 Man Diff? Auto Invalid Interpretation Code [facility] Comment on above: Performed By: #### 3 [id number], 2087754, 3418053, [id number], [id number] ####[facility] (DEFAULT)[address] [place] [address] 05246 MCH (RBC) [Entitic mass] 26 pg Normal 24-34 [facility] Comment on above: Performed By: #### 3 [id number], 1747739, 3907924, [id number], [id number] ####[facility] (DEFAULT)[address] [place] [address] MCHC (RBC) [Mass/Vol] 32 g/dL Normal 26-37 [facility] Comment on above: Performed By: #### 3 [id number], 3810128, 5429519, [id number], [id number] ####[facility] (DEFAULT)[address] [place] [address] 45451 MCV (RBC) [Entitic vol] 81 fL Normal 81-100 [facility] Comment on above: Performed By: #### 3 [id number], 0289692, 3210565, [id number], [id number] ####[facility] (DEFAULT)[address] [place] [address] 41133 Platelet 275 x10 Normal 138-427 [facility] Comment on above: Performed By: #### 3 [id number], 2261128, 8512983, [id number], [id number] ####[facility] (DEFAULT)[address] [place] [address] 09871 Platelet mean volume (Bld) [Entitic vol] 7.8 fL Normal 6.3-10.2 [facility] Comment on above: Performed By: #### 3 [id number], 7260746, 2081583, [id number], [id number] ####[facility] (DEFAULT)[address] [place] [address] RBC 4.05 x10 Normal 3.70-5.30 [facility] Comment on above: Performed By: #### 3 [id number], 1380201, 4531970, [id number], [id number] ####[facility] (DEFAULT)[address] [place] [address] WBC 7.7 x10 Normal 3.5-10.5 [facility] Comment on above: Performed By: #### 3 [id number], 3638314, 2353647, [id number], [id number] ####[facility] (DEFAULT)[address] [place] [address] CMP Standardon 04-16-2023 Breakpoint Chem Normal [facility] Comment on above: Performed By: #### 3 [id number], 9579868, 1249706, [id number], [id number] ####[facility] (DEFAULT)[address] [place] [address] eGFR Non AA >60 Invalid Interpretation Code [facility] Comment on above: Performed By: #### 3 [id number], 2096200, 2695205, [id number], [id number] ####[facility] (DEFAULT)[address] [place] [address] eGFR AA >60 Invalid Interpretation Code [facility] Comment on above: Performed By: #### 3 [id number], 5532121, 5957787, [id number], [id number] ####[facility] (DEFAULT)[address] [place] [address] Albumin/Globulin [Mass ratio] 1.2 {ratio} Low 1.4-2.6 [facility] Comment on above: Performed By: #### 3 [id number], 7018208, 6700399, [id number], [id number] ####[facility] (DEFAULT)[address] [place] [address] Anion gap [Moles/Vol] 7.6 mmol/L Normal 5.0-19.0 [facility] Comment on above: Performed By: #### 3 [id number], 1646178, 1605084, [id number], [id number] ####[facility] (DEFAULT)[address] [place] [address] Globulin (S) [Mass/Vol] 3.2 g/dL Normal 1.5-4.3 [facility] Comment on above: Performed By: #### 3 [id number], 3084328, 2248133, [id number], 32144212 ####[facility] (DEFAULT)[address] [place] [address] Osmolality 275 mOsm/L Invalid Interpretation Code [facility] Comment on above: Performed By: #### 3 [id number], 0921642, 6527903, [id number], [id number] ####[facility] (DEFAULT)[address] [place] [address] Urea nitrogen/Creatinine [Mass ratio] 20.3 mg/mg High 4.6-16.2 [facility] Comment on above: Performed By: #### 3 [id number], 8128782, 1909251, [id number], 75122909 ####[facility] (DEFAULT)[address] [place] [address] Albumin [Mass/Vol] 3.9 g/dL Normal 3.5-5.0 [facility] Comment on above: Performed By: #### 3 [id number], 5550282, 1480149, [id number], 24004719 ####[facility] (DEFAULT)[address] [place] [address] Alk Phos 44 IU/L Normal 32-91 [facility] Comment on above: Performed By: #### 3 [id number], 4345861, 7219137, [id number], 92809858 ####[facility] (DEFAULT)[address] [place] [address] ALT [Catalytic activity/Vol] 39.0 U/L Normal 14.0-54.0 [facility] Comment on above: Performed By: #### 3 [id number], 8404056, 1084073, [id number], 70413470 ####[facility] (DEFAULT)[address] [place] [address] 05844 AST [Catalytic activity/Vol] 28 U/L Normal 15-41 [facility] Comment on above: Performed By: #### 3 [id number], [id number], [id number], [id number], [id number] ####[facility] (DEFAULT)[address] [place] [address] Bili Total 0.4 mg/dL Normal 0.3-1.2 [facility] Comment on above: Performed By: #### 3 [id number], [id number], [id number], [id number], [id number] ####[facility] (DEFAULT)[address] [place] [address] Calcium [Mass/Vol] 8.6 mg/dL Low 8.9-10.3 [facility] Comment on above: Performed By: #### 3 [id number], [id number], [id number], [id number], [id number] ####[facility] (DEFAULT)[address] [place] [address] 43021 Chloride [Moles/Vol] 107 mmol/L Normal 101-111 [facility] Comment on above: Performed By: #### 3 [id number], [id number], [id number], [id number], [id number] ####[facility] (DEFAULT)[address] [place] [address] 96326 CO2 [Moles/Vol] 27 mmol/L Normal 21-32 [facility] Comment on above: Performed By: #### 3 [id number], [id number], 9438949, [id number], [id number] ####[facility] (DEFAULT)[address] [place] [address] 10787 Creatinine [Mass/Vol] 0.64 mg/dL Normal 0.60-1.30 [facility] Comment on above: Performed By: #### 3 [id number], 3554238, 2285415, [id number], [id number] ####[facility] (DEFAULT)[address] [place] [address] 71115 Glucose [Mass/Vol] 93.0 mg/dL Normal 74.0-118.0 [facility] Comment on above: Performed By: #### 3 [id number], [id number], 9044029, [id number], [id number] ####[facility] (DEFAULT)[address] [place] [address]5084 Potassium [Moles/Vol] 3.6 mmol/L Normal 3.6-5.1 [facility] Comment on above: Performed By: #### 3 [id number], [id number], 6436222, [id number], [id number] ####[facility] (DEFAULT)[address] [place] [address] 85270 Protein [Mass/Vol] 7.1 g/dL Normal 6.5-8.1 [facility] Comment on above: Performed By: #### 3 [id number], 4806922, 7204492, [id number], [id number] ####[facility] (DEFAULT)[address] [place] [address] 25636 Sodium [Moles/Vol] 138.0 mmol/L Normal 136.0-144.0 [facility] Comment on above: Performed By: #### 3 [id number], 3070141, 2976025, [id number], [id number] ####[facility] (DEFAULT)[address] [place] [address] 33043 Urea nitrogen [Mass/Vol] 13 mg/dL Normal 8-26 [facility] Comment on above: Performed By: #### 3 [id number], 1024449, 3387594, [id number], [id number] ####[facility] (DEFAULT)[address] [place] [address] 95653 ED Clinical Summaryon 2022 ED Clinical Summary [facility] - Emergency Department [address] [place] [address] ED Clinical Summary PERSON INFORMATION Name: BARBRA CLAROS Age: 27 Years Sex: FEMALE : 1995 MRN: Acct#: Visit Reason: Vaginal bleeding; Vaginal bleeding; VAGINAL BLEEDING Arrival: 04/15/2023 23:05:13 Discharge: 04/16/2023 03:19:00 LOS: 000 04:14 Check In: 04/15/2023 23:05:13 Checkout:04/16/2023 03:19:00 Address: [address] [facility] [address] PCP: Provider, None PROVIDER INFORMATION Provider Role Assigned Unassigned 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 Gurrola, her HIGHWAY TECHNICIAN doctor on Monday for an assistance. She [...] Impression and Plan Diagnosis Dysfunctional uterine bleeding (QCB85-GR N93.8, Discharge, Medical) Plan Condition: Improved. Disposition: Discharged. Prescriptions Patient was given the following educational materials: Menorrhagia, [id number]. Follow up with: ; Michael Gurrola In 2 days 04/18/2023 home ibuprofen for cramps Provera: one tab daily to reduce the bleeding continue your iron pills Call Dr Gurrola on Monday, for a recheck apt w (more content not included)... [facility] ED Note - Physicianon 2022 ED [...] that she would call Dr. Gurrola, her HIGHWAY TECHNICIAN doctor on Monday for an assistance. She [...] Impression and Plan Diagnosis Dysfunctional uterine bleeding (FFB90-TJ N93.8, Discharge, Medical) Plan Condition: Improved. Disposition: Discharged. Prescriptions Patient was given the following educational materials: Menorrhagia, [id number]. Follow up with: ; Michael Gurrola In [...] 03:19 EDT] Luis Alfredo Shepherd DO Normal [facility] ED Patient Summaryon 023 ED Patient Summary [facility] - Emergency Department [address] [place], [place] [id number] PATIENT DISCHARGE INSTRUCTIONS Patient Information Name: BARBRA CLAROS Age: 27 Years Date of : 1995 Reason For Visit: Vaginal bleeding; Vaginal bleeding; VAGINAL BLEEDING Arrival Time: 04/15/2023 23:05:13 Primary Care Physician: Provider, None Attending Physician: Luis Alfredo Shepherd DO Comment: Visit Diagnosis: Diagnoses This Visit Dysfunctional uterine bleeding (N93.8) Vaginal bleeding ([id number]) Vaginal bleeding ([id number]) The Pharmacy at [facility] is open Monday through Monday from [...] alcohol and/or drug addiction problems; contact the [facility] On License Of [facility] 09/01 Crisis Hotline -Text 4HFKY qf [phone]. If you received any narcotics, sedation, or [...] With: Address: When: Michael Gurrola [address] [facility], [address] [place] [address] Business (1) In 2 days [...] and treatment you received today in the [facility] Emergency Department were for an urgent problem and are not intended as complete care. It is important for you to follow up with a doctor, nurse practitioner, or physician?s assistant office manager for ongoing care. If your symptoms [...] so we can reach you if necessary. [facility] Emergency Department has provided you with a complete list of medications post discharge. Please inform your sales property manager/provider of your visit and for further instruction on these medications. Any specific questions regarding your chronic medications and dosages should be discussed with your primary care physician(s) and/or pharmacist. New Medications [facility], [address] [place] [address] [phone], [phone] medroxyPROGESTERone (medroxyPROGESTERone 5 mg oral tablet) 1 [...] This Visit (more content not included)... Normal [facility] PT/PTTon 04-16-2023 INR Coag (PPP) [Relative time] 0.99 {INR} Normal 0.91-1.11 [facility] Comment on above: Performed By: #### 3 [id number], [id number], 6944659, [id number], [id number] ####[facility] (DEFAULT)[address] [place] [address] PT 10.3 second(s) Normal 9.7-11.8 [facility] Comment on above: Performed By: #### 3 [id number], 2138414, [id number], [id number], [id number] ####[facility] (DEFAULT)[address] [place], [place] [id number] PTT 33 second(s) Normal 25-35 [facility] Comment on above: Performed By: #### 3 [id number], [id number], 1908096, [id number], [id number] ####[facility] (DEFAULT)[address] [place] [address] Test Serum 1on - Preg Serum Internal Control OK Normal [facility] Comment on above: Performed By: #### 3 [id number], 6324655, 3368532, [id number], [id number] ####[facility] (DEFAULT)[address] [place] [address] Test Serum Qual Negative [facility] Comment on above: Performed By: #### 3 [id number], 6440535, 8743487, [id number], [id number] ####[facility] (DEFAULT)[address] [place] [address] Basophils Auto (Bld) [#/Vol] Ordered By: Jonathan Monahan on 02-27-2023 Basophils (Bld) [#/Vol] 0.0 10*3/uL 0.0-0.[address] [facility] Basophils/100 WBC Auto (Bld) Ordered By: Jonathan Monahan on 02-27-2023 Basophils/100 WBC (Bld) 0.4 % . [facility] Eosinophils Auto (Bld) [#/Vo l]Ordered By: Jonathan Monahan on 02-27-2023 Eosinophils (Bld) [#/Vol] 0.1 10*3/uL 0.0-0.[address] [facility] Eosinophils/100 WBC Auto (Bl d)Ordered By: Jonathan Monahan on 02-27-2023 Eosinophils/100 WBC (Bld) 0.7 % . [facility] Erythrocyte distribution wid th Auto (RBC) [Ratio]Ordered By: Jonathan Monahan on 02-27-2023 Erythrocyte distribution width (RBC) [Ratio] 14.8 % 11.9-15.[address] [facility] Hematocrit Auto (Bld) [Volum e fraction]Ordered By: Jonathan Monahan on 02-27-2023 Hematocrit (Bld) [Volume fraction] 27.5 % 34.0-46.[address] [facility] Hemoglobin [Mass/volume] in BloodOrdered By: Jonathan Monahan on 02-27-2023 Hemoglobin (Bld) [Mass/Vol] 8.9 g/dL 11.8-15.[address] [facility] Hepatitis B virus surface Ag [Presence] in Serum or Plasma by ImmunoassayOrdered By: Jonathan Monahan on 02-27-2023 HBV surface Ag IA Ql Negative Negative [facility] Comment on above: Performed at: [facility] [place] [id number] Director: Alexander Jean Baptiste PhD, Phone: [phone] Leukocytes [#/volume] correc arminda for nucleated erythrocytes in Blood by Automated counOrdered By: Jonathan Monahan on 02-27-2023 WBC corrected for nucl RBC Auto (Bld) [#/Vol] 9.6 10*3/uL 3.8-11.[address] [facility] Lymphocytes Auto (Bld) [#/Vo l]Ordered By: Jonathan Monahan on 02-27-2023 Lymphocytes (Bld) [#/Vol] 2.6 10*3/uL 1.00-4.[address] [facility] Lymphocytes/100 WBC Auto (Bl d)Ordered By: Jonathan Monahan on 02-27-2023 Lymphocytes/100 WBC (Bld) 26.9 % . [facility] MCH Auto (RBC) [Entitic mass ]Ordered By: Jonathan Monahan on 02-27-2023 MCH (RBC) [Entitic mass] 25.6 pg 24.7-34.[address] [facility] MCHC Auto (RBC) [Mass/Vol]Or dered By: Jonathan Monahan on 02-27-2023 MCHC (RBC) [Mass/Vol] 32.4 g/dL 32.0-35.0 [facility] MCV Auto (RBC) [Entitic vol] Ordered By: Jonathan Monahan on 02-27-2023 MCV (RBC) [Entitic vol] 79.0 fL 80-[address] [facility] Monocytes Auto (Bld) [#/Vol] Ordered By: Jonathan Monahan on 02-27-2023 Monocytes (Bld) [#/Vol] 0.7 10*3/uL 0.0-0.[address] [facility] Monocytes/100 WBC Auto (Bld) Ordered By: Jonathan Monahan on 02-27-2023 Monocytes/100 WBC (Bld) 7.1 % . [facility] Neutrophils Auto (Bld) [#/Vo l]Ordered By: Jonathan Monahan on 02-27-2023 Neutrophils (Bld) [#/Vol] 6.2 10*3/uL 1.8-7.[address] [facility] Neutrophils/100 WBC Auto (Bl d)Ordered By: Jonathan Monahan on 02-27-2023 Neutrophils/100 WBC (Bld) 64.9 % . [facility] No Panel InformationOrdered By: Jonathan Monahan on 02-27-2023 Rubella IgG Antibody 2.22 index Immune >0.[address] [facility] Comment on above: Non-immune <0.90 Equ ivocal 0.90 - 0.99 Immune >0.99Performed at: [facility] [facility] [place] [id number] Director: Alexander Jean Baptiste PhD, Phone: [phone] Nucleated erythrocytes [Pres ence] in Blood by Automated countOrdered By: Jonathan Monahan on 02-27-2023 Nucleated RBC Auto Ql (Bld) 0.2 /100{WBC} 0-0.[address] [facility] Platelet mean volume Auto (B ld) [Entitic vol]Ordered By: Jonathan Monahan on 02-27-2023 Platelet mean volume (Bld) [Entitic vol] 7.5 fL 6.3-10.[address] [facility] Platelets Auto (Bld) [#/Vol] Ordered By: Jonathan Monahan on 02-27-2023 Platelets (Bld) [#/Vol] 266 10*3/uL 150-[address] [facility] RBC Auto (Bld) [#/Vol]Ordere d By: Jonathan Monahan on 02-27-2023 RBC (Bld) [#/Vol] 3.48 10*6/uL 3.60-5.00 [facility] WBC Auto (Bld) [#/Vol]Ordere d By: Jonathan Monahan on 02-27-2023 WBC (Bld) [#/Vol] 9.6 10*3/uL 3.8-11.6 [facility] Amphetamine Screen Ql (U)Ord ered By: Jonathan Monahan on 02-26-2023 Amphetamines Ql (U) Negative Negative [facility] Automated erythrocytes count in urine sediment (number/area)Ordered By: Jonathan Monahan on 02-26-2023 RBC Auto (Urine sed) [#/Area] 0-1 [HPF] 0-[address] [facility] Automated leukocytes count i n urine sediment (number/area)Ordered By: Jonathan Monahan on 02-26-2023 WBC Auto (Urine sed) [#/Area] 20-49 [HPF] 0-[address] [facility] Barbiturates [Presence] in U rine by Screen methodOrdered By: Jonathan Monahan on 02-26-2023 Barbiturates Screen Ql (U) Negative Negative [facility] Benzodiazepines Screen Ql (U )Ordered By: Jonathan Monahan on 02-26-2023 Benzodiazepines Ql (U) Negative Negative [facility] Benzoylecgonine [Presence] i n Urine by Screen methodOrdered By: Jonathan Monahan on 02-26-2023 Benzoylecgonine Screen Ql (U) Negative Negative [facility] Bilirubin Test strip Ql (U)O rdered By: Jonathan Monahan on 02-26-2023 Bilirubin Ql (U) Negative Negative [place] Color Auto (U)Ordered By: Hola Monahan on 02-26-2023 Color (U) Yellow Yellow [facility] Ketones Auto test strip (U) [Mass/Vol]Ordered By: Jonathan Monahan on 02-26-2023 Ketones (U) [Mass/Vol] Trace Negative [facility] Laboratory - UrinalysisOrder ed By: Jonathan Monahan on 02-26-2023 Hyaline casts LM Ql (Urine sed) 0-8 [LPF] 0-[address] [facility] Nitrite Test strip Ql (U)Ord ered By: Jonathan Monahan on 02-26-2023 Nitrite Ql (U) Negative Negative [facility] Opiates [Presence] in Urine by Screen methodOrdered By: Jonathan Monahan on 02-26-2023 Opiates Screen Ql (U) Negative Negative [facility] Phencyclidine Screen Ql (U)O rdered By: Jonathan Monahan on 02-26-2023 Phencyclidine Ql (U) Negative Negative [facility] Comment on above: These are unconfirme d results and should not be used for legal purposes. Drug Cut-Off Concentration: AMPH 1000 ng/mL FIONA 200 ng/mL KIMMY 200 ng/mL COCM 300 ng/mL OP 300 ng/mL PCP 25 ng/mL Protein Auto test strip (U) [Mass/Vol]Ordered By: Jonathan Monahan on 02-26-2023 Protein (U) [Mass/Vol] Negative Negative [facility] Reagin Ab [Presence] in Seru m by RPROrdered By: Jonathan Monahan on 02-26-2023 Reagin Ab RPR Ql (S) Non-Reactive Non Reactive [facility] Comment on above: Performed at: [address] Director: Alexander Jean Baptiste PhD, Phone: [phone] Specific gravity Auto test s trip (U) [Rel density]Ordered By: Jonathan Monahan on 02-26-2023 Specific gravity (U) [Rel density] 1.016 1.001-1.[address] [facility] Squamous epithelial cells de tection in urine sediment by light microscopyOrdered By: Jonathan Monahan on 02-26-2023 Epithelial cells.squamous LM Ql (Urine sed) 3-4 [HPF] 0-[address] [facility] Urine bacteria detection by automated methodOrdered By: Jonathan Monahan on 02-26-2023 Bacteria Auto Ql (U) 1+ None Seen [facility] Urine clarity by refractomet ry automatedOrdered By: Jonathan Monahan on 02-26-2023 Clarity Refractometry automated (U) Cloudy Clear [facility] Urine culture routineOrdered By: Jonathan Monahan on 02-26-2023 Bacteria identified Cx Nom (U) [address] [facility] Urine glucose measurement by automated test strip (mass/volume)Ordered By: Jonathan Monahan on 02-26-2023 Glucose Auto test strip (U) [Mass/Vol] Normal mg/dL Normal [facility] Urine hemoglobin detection b y automated test stripOrdered By: Jonathan Monahan on 02-26-2023 Hemoglobin Auto test strip Ql (U) Negative Negative [facility] Urine leukocyte esterase det ection by automated test stripOrdered By: Jonathan Monahan on 02-26-2023 Leukocyte esterase Auto test strip Ql (U) 3+ Negative [facility] Urobilinogen Auto test strip (U) [Mass/Vol]Ordered By: Jonathan Monahan on 02-26-2023 Urobilinogen (U) [Mass/Vol] Normal mg/dL Normal [facility] pH Auto test strip (U)Ordere d By: Jonathan Monahan on 02-26-2023 pH (U) 6.5 [pH] 5.0-9.[address] [facility] Amphetamine Screen Ql (U)Ord ered By: CARY Beltre on 02-25-2023 Amphetamines Ql (U) Negative Negative [facility] Barbiturates [Presence] in U rine by Screen methodOrdered By: CARY Beltre on 02-25-2023 Barbiturates Screen Ql (U) Negative Negative [facility] Benzodiazepines Screen Ql (U )Ordered By: CARY Beltre on 02-25-2023 Benzodiazepines Ql (U) Negative Negative [facility] Benzoylecgonine [Presence] i n Urine by Screen methodOrdered By: CARY Beltre on 02-25-2023 Benzoylecgonine Screen Ql (U) Negative Negative [facility] Bilirubin Test strip Ql (U)O rdered By: CARY Beltre on 02-25-2023 Bilirubin Ql (U) Negative Negative [place] Color Auto (U)Ordered By: MD NATAN Beltre on 02-25-2023 Color (U) Yellow Yellow [facility] Ketones Auto test strip (U) [Mass/Vol]Ordered By: CARY Beltre on 02-25-2023 Ketones (U) [Mass/Vol] Negative Negative [facility] Nitrite Test strip Ql (U)Ord ered By: CARY Beltre on 02-25-2023 Nitrite Ql (U) Negative Negative [facility] Opiates [Presence] in Urine by Screen methodOrdered By: CARY Beltre on 02-25-2023 Opiates Screen Ql (U) Negative Negative [facility] Phencyclidine Screen Ql (U)O rdered By: CARY Beltre on 02-25-2023 Phencyclidine Ql (U) Negative Negative [facility] Comment on above: These are unconfirme d results and should not be used for legal purposes. Drug Cut-Off Concentration: AMPH 1000 ng/mL FIONA 200 ng/mL KIMMY 200 ng/mL COCM 300 ng/mL OP 300 ng/mL PCP 25 ng/mL Protein Auto test strip (U) [Mass/Vol]Ordered By: CARY Beltre on 02-25-2023 Protein (U) [Mass/Vol] Negative Negative [facility] Specific gravity Auto test s trip (U) [Rel density]Ordered By: CARY Beltre on 02-25-2023 Specific gravity (U) [Rel density] 1.015 1.001-1.[address] [facility] Urine clarity by refractomet ry automatedOrdered By: CARY Beltre on 02-25-2023 Clarity Refractometry automated (U) Clear Clear [facility] Urine glucose measurement by automated test strip (mass/volume)Ordered By: ARDEN Beltre on 02-25-2023 Glucose Auto test strip (U) [Mass/Vol] Normal mg/dL Normal [facility] Urine hemoglobin detection b y automated test stripOrdered By: CARY Beltre on 02-25-2023 Hemoglobin Auto test strip Ql (U) Negative Negative [facility] Urine leukocyte esterase det ection by automated test stripOrdered By: CARY Beltre on 02-25-2023 Leukocyte esterase Auto test strip Ql (U) Negative Negative [facility] Urobilinogen Auto test strip (U) [Mass/Vol]Ordered By: CARY Beltre on 02-25-2023 Urobilinogen (U) [Mass/Vol] Normal mg/dL Normal [facility] pH Auto test strip (U)Ordere d By: CARY Beltre on 02-25-2023 pH (U) 6.5 [pH] 5.0-9.[address] [facility] Amphetamine Screen Ql (U)Ord ered By: MICHAEL GURROLA on 02-22-2023 Amphetamines Ql (U) Negative Negative [facility] Automated erythrocytes count in urine sediment (number/area)Ordered By: MICHAEL GURROLA on 02-22-2023 RBC Auto (Urine sed) [#/Area] 0-1 [HPF] 0-[address] [facility] Automated leukocytes count i n urine sediment (number/area)Ordered By: MICHAEL GURROLA on 02-22-2023 WBC Auto (Urine sed) [#/Area] 5-9 [HPF] 0-[address] [facility] Barbiturates [Presence] in U rine by Screen methodOrdered By: MICHAEL GURROLA on 02-22-2023 Barbiturates Screen Ql (U) Negative Negative [facility] Benzodiazepines Screen Ql (U )Ordered By: MICHAEL GURROLA on 02-22-2023 Benzodiazepines Ql (U) Negative Negative [facility] Benzoylecgonine [Presence] i n Urine by Screen methodOrdered By: MICHAEL GURROLA on 02-22-2023 Benzoylecgonine Screen Ql (U) Negative Negative [facility] Bilirubin Test strip Ql (U)O rdered By: MICHAEL GURROLA on 02-22-2023 Bilirubin Ql (U) Negative Negative [place] Color Auto (U)Ordered By: SAMIR GURROLA on 02-22-2023 Color (U) Yellow Yellow [facility] Ketones Auto test strip (U) [Mass/Vol]Ordered By: MICHAEL GURROLA on 02-22-2023 Ketones (U) [Mass/Vol] Negative Negative [facility] Laboratory - UrinalysisOrder ed By: MICHAEL GURROLA on 02-22-2023 Hyaline casts LM Ql (Urine sed) 0-8 [LPF] 0-[address] [facility] Nitrite Test strip Ql (U)Ord ered By: MICHAEL GURROLA on 02-22-2023 Nitrite Ql (U) Negative Negative [facility] No Panel InformationOrdered By: MICHAEL GURROLA on 02-22-2023 Membranes Rupture (PAMG-1) Negative Negative [facility] Opiates [Presence] in Urine by Screen methodOrdered By: MICHAEL GURROLA on 02-22-2023 Opiates Screen Ql (U) Negative Negative [facility] Phencyclidine Screen Ql (U)O rdered By: MICHAEL GURROLA on 02-22-2023 Phencyclidine Ql (U) Negative Negative [facility] Comment on above: These are unconfirme d results and should not be used for legal purposes. Drug Cut-Off Concentration: AMPH 1000 ng/mL FIONA 200 ng/mL KIMMY 200 ng/mL COCM 300 ng/mL OP 300 ng/mL PCP 25 ng/mL Protein Auto test strip (U) [Mass/Vol]Ordered By: MICHAEL GURROLA on 02-22-2023 Protein (U) [Mass/Vol] Negative Negative [facility] Specific gravity Auto test s trip (U) [Rel density]Ordered By: MICHAEL GURROLA on 02-22-2023 Specific gravity (U) [Rel density] 1.013 1.001-1.[address] [facility] Squamous epithelial cells de tection in urine sediment by light microscopyOrdered By: MICHAEL GURROLA on 02-22-2023 Epithelial cells.squamous LM Ql (Urine sed) 3-4 [HPF] 0-[address] [facility] Urine bacteria detection by automated methodOrdered By: MICHAEL GURROLA on 02-22-2023 Bacteria Auto Ql (U) None seen None Seen [facility] Urine clarity by refractomet ry automatedOrdered By: MICHAEL GURROLA on 02-22-2023 Clarity Refractometry automated (U) Clear Clear [facility] Urine culture routineOrdered By: MICHAEL GURROLA on 02-22-2023 Bacteria identified Cx Nom (U) [facility] Urine glucose measurement by automated test strip (mass/volume)Ordered By: MICHAEL GURROLA on 02-22-2023 Glucose Auto test strip (U) [Mass/Vol] 100 mg/dL Normal [facility] Urine hemoglobin detection b y automated test stripOrdered By: MICHAEL GURROLA on 02-22-2023 Hemoglobin Auto test strip Ql (U) Negative Negative [facility] Urine leukocyte esterase det ection by automated test stripOrdered By: MICHAEL GURROLA on 02-22-2023 Leukocyte esterase Auto test strip Ql (U) 2+ Negative [facility] Urobilinogen Auto test strip (U) [Mass/Vol]Ordered By: MICHAEL GURROLA on 02-22-2023 Urobilinogen (U) [Mass/Vol] Normal mg/dL Normal [facility] pH Auto test strip (U)Ordere d By: MICHAEL GURROLA on 02-22-2023 pH (U) 7.0 [pH] 5.0-9.[address] [facility] Amphetamine Screen Ql (U)Ord ered By: JUANY CHOI on 02-19-2023 Amphetamines Ql (U) Negative Negative [facility] Barbiturates [Presence] in U rine by Screen methodOrdered By: JUANY CHOI on 02-19-2023 Barbiturates Screen Ql (U) Negative Negative [facility] Benzodiazepines Screen Ql (U )Ordered By: JUANY CHOI on 02-19-2023 Benzodiazepines Ql (U) Negative Negative [facility] Benzoylecgonine [Presence] i n Urine by Screen methodOrdered By: JUANY CHOI on 02-19-2023 Benzoylecgonine Screen Ql (U) Negative Negative [facility] Bilirubin Test strip Ql (U)O rdered By: JUANY CHOI on 02-19-2023 Bilirubin Ql (U) Negative Negative [place] Color Auto (U)Ordered By: LEIDA CHOI on 02-19-2023 Color (U) Yellow Yellow [facility] Ketones Auto test strip (U) [Mass/Vol]Ordered By: JUANY CHOI on 02-19-2023 Ketones (U) [Mass/Vol] Negative Negative [facility] Nitrite Test strip Ql (U)Ord ered By: JUANY CHOI on 02-19-2023 Nitrite Ql (U) Negative Negative [facility] No Panel InformationOrdered By: JUANY CHOI on 02-19-2023 Membranes Rupture (PAMG-1) Negative Negative [facility] Opiates [Presence] in Urine by Screen methodOrdered By: JUANY CHOI on 02-19-2023 Opiates Screen Ql (U) Negative Negative [facility] Phencyclidine Screen Ql (U)O rdered By: JUANY CHOI on 02-19-2023 Phencyclidine Ql (U) Negative Negative [facility] Comment on above: These are unconfirme d results and should not be used for legal purposes. Drug Cut-Off Concentration: AMPH 1000 ng/mL FIONA 200 ng/mL KIMMY 200 ng/mL COCM 300 ng/mL OP 300 ng/mL PCP 25 ng/mL Protein Auto test strip (U) [Mass/Vol]Ordered By: JUANY CHOI on 02-19-2023 Protein (U) [Mass/Vol] Negative Negative [facility] Specific gravity Auto test s trip (U) [Rel density]Ordered By: JUANY CHOI on 02-19-2023 Specific gravity (U) [Rel density] 1.004 1.001-1.[address] [facility] Urine clarity by refractomet ry automatedOrdered By: JUANY CHOI on 02-19-2023 Clarity Refractometry automated (U) Clear Clear [facility] Urine glucose measurement by automated test strip (mass/volume)Ordered By: JUANY CHOI on 02-19-2023 Glucose Auto test strip (U) [Mass/Vol] Normal mg/dL Normal [facility] Urine hemoglobin detection b y automated test stripOrdered By: JUANY CHOI on 02-19-2023 Hemoglobin Auto test strip Ql (U) Negative Negative [facility] Urine leukocyte esterase det ection by automated test stripOrdered By: JUANY CHOI on 02-19-2023 Leukocyte esterase Auto test strip Ql (U) Negative Negative [facility] Urobilinogen Auto test strip (U) [Mass/Vol]Ordered By: UJANY CHOI on 02-19-2023 Urobilinogen (U) [Mass/Vol] Normal mg/dL Normal [facility] pH Auto test strip (U)Ordere d By: JUANY CHOI on 02-19-2023 pH (U) 6.5 [pH] 5.0-9.[address] [facility] Amphetamine Screen Ql (U)Ord ered By: CARY Beltre on 02-17-2023 Amphetamines Ql (U) Negative Negative [facility] Barbiturates [Presence] in U rine by Screen methodOrdered By: CARY Beltre on 02-17-2023 Barbiturates Screen Ql (U) Negative Negative [facility] Benzodiazepines Screen Ql (U )Ordered By: CARY Beltre on 02-17-2023 Benzodiazepines Ql (U) Negative Negative [facility] Benzoylecgonine [Presence] i n Urine by Screen methodOrdered By: CARY Beltre on 02-17-2023 Benzoylecgonine Screen Ql (U) Negative Negative [facility] Bilirubin Test strip Ql (U)O rdered By: CARY Beltre on 02-17-2023 Bilirubin Ql (U) Negative Negative [place] Color Auto (U)Ordered By: MD NATAN Beltre on 02-17-2023 Color (U) Yellow Yellow [facility] Ketones Auto test strip (U) [Mass/Vol]Ordered By: CARY Beltre on 02-17-2023 Ketones (U) [Mass/Vol] Negative Negative [facility] Nitrite Test strip Ql (U)Ord ered By: CARY Beltre on 02-17-2023 Nitrite Ql (U) Negative Negative [facility] Opiates [Presence] in Urine by Screen methodOrdered By: CARY Beltre on 02-17-2023 Opiates Screen Ql (U) Negative Negative [facility] Phencyclidine Screen Ql (U)O rdered By: CARY Beltre on 02-17-2023 Phencyclidine Ql (U) Negative Negative [facility] Comment on above: These are unconfirme d results and should not be used for legal purposes. Drug Cut-Off Concentration: AMPH 1000 ng/mL FIONA 200 ng/mL KIMMY 200 ng/mL COCM 300 ng/mL OP 300 ng/mL PCP 25 ng/mL Protein Auto test strip (U) [Mass/Vol]Ordered By: CARY Beltre on 09-01-2023 Protein (U) [Mass/Vol] Negative Negative [facility] Specific gravity Auto test s trip (U) [Rel density]Ordered By: CARY Beltre on 02-17-2023 Specific gravity (U) [Rel density] 1.003 1.001-1.[address] [facility] Urine clarity by refractomet ry automatedOrdered By: CRAY Beltre on 02-17-2023 Clarity Refractometry automated (U) Clear Clear [facility] Urine glucose measurement by automated test strip (mass/volume)Ordered By: ARDEN Beltre on 02-17-2023 Glucose Auto test strip (U) [Mass/Vol] Normal mg/dL Normal [facility] Urine hemoglobin detection b y automated test stripOrdered By: CARY Beltre on 02-17-2023 Hemoglobin Auto test strip Ql (U) Negative Negative [facility] Urine leukocyte esterase det ection by automated test stripOrdered By: CARY Beltre on 02-17-2023 Leukocyte esterase Auto test strip Ql (U) Negative Negative [facility] Urobilinogen Auto test strip (U) [Mass/Vol]Ordered By: CARY Beltre on 02-17-2023 Urobilinogen (U) [Mass/Vol] Normal mg/dL Normal [facility] pH Auto test strip (U)Ordere d By: CARY Beltre on 02-17-2023 pH (U) 6.5 [pH] 5.0-9.[address] [facility] Group B Streptococcus cultur eOrdered By: MICHAEL GURROLA on 02-16-2023 S. agalactiae Org specific cx Ql (Unsp spec) [facility] S. agalactiae Org specific cx Ql (Unsp spec) [facility] Amphetamine Screen Ql (U)Ord ered By: Jonathan Monahan on 02-07-2023 Amphetamines Ql (U) Negative Negative [facility] Barbiturates [Presence] in U rine by Screen methodOrdered By: Jonathan Monahan on 02-07-2023 Barbiturates Screen Ql (U) Negative Negative [facility] Benzodiazepines Screen Ql (U )Ordered By: Jonathan Monahan on 02-07-2023 Benzodiazepines Ql (U) Negative Negative [facility] Benzoylecgonine [Presence] i n Urine by Screen methodOrdered By: Jonathan Monahan on 02-07-2023 Benzoylecgonine Screen Ql (U) Negative Negative [facility] Bilirubin Test strip Ql (U)O rdered By: Jonathan Monahan on 02-07-2023 Bilirubin Ql (U) Negative Negative [place] Color Auto (U)Ordered By: Hola Monahan on 02-07-2023 Color (U) Yellow Yellow [facility] Ketones Auto test strip (U) [Mass/Vol]Ordered By: Jonathan Monahan on 02-07-2023 Ketones (U) [Mass/Vol] Trace Negative [facility] Nitrite Test strip Ql (U)Ord ered By: Jonathan Monahan on 02-07-2023 Nitrite Ql (U) Negative Negative [facility] Opiates [Presence] in Urine by Screen methodOrdered By: Jonathan Monahan on 02-07-2023 Opiates Screen Ql (U) Negative Negative [facility] Phencyclidine Screen Ql (U)O rdered By: Jonathan Monahan on 02-07-2023 Phencyclidine Ql (U) Negative Negative [facility] Comment on above: These are unconfirme d results and should not be used for legal purposes. Drug Cut-Off Concentration: AMPH 1000 ng/mL FIONA 200 ng/mL KIMMY 200 ng/mL COCM 300 ng/mL OP 300 ng/mL PCP 25 ng/mL Protein Auto test strip (U) [Mass/Vol]Ordered By: Jonathan Monahan on 02-07-2023 Protein (U) [Mass/Vol] Negative Negative [facility] Specific gravity Auto test s trip (U) [Rel density]Ordered By: Jonathan Monahan on 02-07-2023 Specific gravity (U) [Rel density] 1.006 1.001-1.[address] [facility] Urine clarity by refractomet ry automatedOrdered By: Jonathan Monahan on 02-07-2023 Clarity Refractometry automated (U) Clear Clear [facility] Urine glucose measurement by automated test strip (mass/volume)Ordered By: Jonathan Monahan on 02-07-2023 Glucose Auto test strip (U) [Mass/Vol] Normal mg/dL Normal [facility] Urine hemoglobin detection b y automated test stripOrdered By: Jonathan Monahan on 02-07-2023 Hemoglobin Auto test strip Ql (U) Negative Negative [facility] Urine leukocyte esterase det ection by automated test stripOrdered By: Jonathan Monahan on 02-07-2023 Leukocyte esterase Auto test strip Ql (U) Negative Negative [facility] Urobilinogen Auto test strip (U) [Mass/Vol]Ordered By: Jonathan Monahan on 02-07-2023 Urobilinogen (U) [Mass/Vol] Normal mg/dL Normal [facility] pH Auto test strip (U)Ordere d By: Jonathan Monahan on 02-07-2023 pH (U) 6.0 [pH] 5.0-9.[address] [facility] Amphetamine Screen Ql (U)Ord ered By: JUANY CHOI on 01-26-2023 Amphetamines Ql (U) Negative Negative [facility] Automated erythrocytes count in urine sediment (number/area)Ordered By: JUANY CHOI on 01-26-2023 RBC Auto (Urine sed) [#/Area] 0-1 [HPF] 0-[address] [facility] Automated leukocytes count i n urine sediment (number/area)Ordered By: JUANY CHIO on 01-26-2023 WBC Auto (Urine sed) [#/Area] 0-1 [HPF] 0-[address] [facility] Barbiturates [Presence] in U rine by Screen methodOrdered By: JUANY CHOI on 01-26-2023 Barbiturates Screen Ql (U) Negative Negative [facility] Benzodiazepines Screen Ql (U )Ordered By: JUANY CHOI on 01-26-2023 Benzodiazepines Ql (U) Negative Negative [facility] Benzoylecgonine [Presence] i n Urine by Screen methodOrdered By: JUANY CHOI on 01-26-2023 Benzoylecgonine Screen Ql (U) Negative Negative [facility] Bilirubin Test strip Ql (U)O rdered By: JUANY CHOI on 01-26-2023 Bilirubin Ql (U) Negative Negative [place] Color Auto (U)Ordered By: LEIDA CHOI on 01-26-2023 Color (U) Yellow Yellow [facility] Ketones Auto test strip (U) [Mass/Vol]Ordered By: JUANY CHOI on 01-26-2023 Ketones (U) [Mass/Vol] Negative Negative [facility] Laboratory - UrinalysisOrder ed By: JUANY CHOI on 01-26-2023 Hyaline casts LM Ql (Urine sed) 0-8 [LPF] 0-[address] [facility] Nitrite Test strip Ql (U)Ord ered By: JUANY CHOI on 01-26-2023 Nitrite Ql (U) Negative Negative [facility] No Panel InformationOrdered By: JUANY CHOI on 01-26-2023 Membranes Rupture (PAMG-1) Negative Negative [facility] Opiates [Presence] in Urine by Screen methodOrdered By: JUANY CHOI on 01-26-2023 Opiates Screen Ql (U) Negative Negative [facility] Phencyclidine Screen Ql (U)O rdered By: JUANY CHOI on 01-26-2023 Phencyclidine Ql (U) Negative Negative [facility] Comment on above: These are unconfirme d results and should not be used for legal purposes. Drug Cut-Off Concentration: AMPH 1000 ng/mL FIONA 200 ng/mL KIMMY 200 ng/mL COCM 300 ng/mL OP 300 ng/mL PCP 25 ng/mL Protein Auto test strip (U) [Mass/Vol]Ordered By: JUANY CHOI on 01-26-2023 Protein (U) [Mass/Vol] Trace mg/dL Negative [facility] Specific gravity Auto test s trip (U) [Rel density]Ordered By: JUANY CHOI on 01-26-2023 Specific gravity (U) [Rel density] 1.021 1.001-1.[address] [facility] Squamous epithelial cells de tection in urine sediment by light microscopyOrdered By: JUANY CHOI on 01-26-2023 Epithelial cells.squamous LM Ql (Urine sed) 1-2 [HPF] 0-[address] [facility] Urine bacteria detection by automated methodOrdered By: JUANY CHOI on 01-26-2023 Bacteria Auto Ql (U) None seen None Seen [facility] Urine clarity by refractomet ry automatedOrdered By: JUANY CHOI on 01-26-2023 Clarity Refractometry automated (U) Cloudy Clear [facility] Urine glucose measurement by automated test strip (mass/volume)Ordered By: JUANY CHOI on 01-26-2023 Glucose Auto test strip (U) [Mass/Vol] Normal mg/dL Normal [facility] Urine hemoglobin detection b y automated test stripOrdered By: JUANY CHOI on 01-26-2023 Hemoglobin Auto test strip Ql (U) Negative Negative [facility] Urine leukocyte esterase det ection by automated test stripOrdered By: JUANY CHOI on 01-26-2023 Leukocyte esterase Auto test strip Ql (U) Negative Negative [facility] Urobilinogen Auto test strip (U) [Mass/Vol]Ordered By: JUANY CHOI on 01-26-2023 Urobilinogen (U) [Mass/Vol] Normal mg/dL Normal [facility] pH Auto test strip (U)Ordere d By: JUANY CHOI on 01-26-2023 pH (U) 6.0 [pH] 5.0-9.[address] [facility] Amphetamine Screen Ql (U)Ord ered By: Jonathan Monahan on 01-24-2023 Amphetamines Ql (U) Negative Negative [facility] Automated erythrocytes count in urine sediment (number/area)Ordered By: Jonathan Monahan on 01-24-2023 RBC Auto (Urine sed) [#/Area] 0-1 [HPF] 0-[address] [facility] Automated leukocytes count i n urine sediment (number/area)Ordered By: Jonathan Monahan on 01-24-2023 WBC Auto (Urine sed) [#/Area] 0-1 [HPF] 0-[address] [facility] Barbiturates [Presence] in U rine by Screen methodOrdered By: Jonathan Monahan on 01-24-2023 Barbiturates Screen Ql (U) Negative Negative [facility] Benzodiazepines Screen Ql (U )Ordered By: Jonathan Monahan on 01-24-2023 Benzodiazepines Ql (U) Negative Negative [facility] Benzoylecgonine [Presence] i n Urine by Screen methodOrdered By: Jonathan Monahan on 01-24-2023 Benzoylecgonine Screen Ql (U) Negative Negative [facility] Bilirubin Test strip Ql (U)O rdered By: Jonathan Monahan on 01-24-2023 Bilirubin Ql (U) Negative Negative [place] Color Auto (U)Ordered By: Hola Monahan on 01-24-2023 Color (U) Yellow Yellow [facility] Ketones Auto test strip (U) [Mass/Vol]Ordered By: Jonathan Monahan on 01-24-2023 Ketones (U) [Mass/Vol] Trace Negative [facility] Laboratory - UrinalysisOrder ed By: Jonathan Monahan on 01-24-2023 Hyaline casts LM Ql (Urine sed) 0-8 [LPF] 0-[address] [facility] Nitrite Test strip Ql (U)Ord ered By: Jonathan Monahan on 01-24-2023 Nitrite Ql (U) Negative Negative [facility] No Panel InformationOrdered By: Jonathan Monahan on 01-24-2023 Membranes Rupture (PAMG-1) Negative Negative [facility] Opiates [Presence] in Urine by Screen methodOrdered By: Jonathan Monahan on 01-24-2023 Opiates Screen Ql (U) Negative Negative [facility] Phencyclidine Screen Ql (U)O rdered By: Jonathan Monahan on 01-24-2023 Phencyclidine Ql (U) Negative Negative [facility] Comment on above: These are unconfirme d results and should not be used for legal purposes. Drug Cut-Off Concentration: AMPH 1000 ng/mL FIONA 200 ng/mL KIMMY 200 ng/mL COCM 300 ng/mL OP 300 ng/mL PCP 25 ng/mL Protein Auto test strip (U) [Mass/Vol]Ordered By: Jonathan Monahan on 01-24-2023 Protein (U) [Mass/Vol] Trace mg/dL Negative [facility] Specific gravity Auto test s trip (U) [Rel density]Ordered By: Jonathan Monahan on 01-24-2023 Specific gravity (U) [Rel density] 1.013 1.001-1.[address] [facility] Squamous epithelial cells de tection in urine sediment by light microscopyOrdered By: Jonathan Monahan on 01-24-2023 Epithelial cells.squamous LM Ql (Urine sed) 0-1 [HPF] 0-[address] [facility] Urine bacteria detection by automated methodOrdered By: Jonathan Monahan on 01-24-2023 Bacteria Auto Ql (U) None seen None Seen [facility] Urine clarity by refractomet ry automatedOrdered By: Jonathan Monahan on 01-24-2023 Clarity Refractometry automated (U) Clear Clear [facility] Urine glucose measurement by automated test strip (mass/volume)Ordered By: Jonathan Monahan on 01-24-2023 Glucose Auto test strip (U) [Mass/Vol] Normal mg/dL Normal [facility] Urine hemoglobin detection b y automated test stripOrdered By: Jonathan Monahan on 01-24-2023 Hemoglobin Auto test strip Ql (U) Negative Negative [facility] Urine leukocyte esterase det ection by automated test stripOrdered By: Jonathan Monahan on 01-24-2023 Leukocyte esterase Auto test strip Ql (U) Negative Negative [facility] Urobilinogen Auto test strip (U) [Mass/Vol]Ordered By: Jonathan Monahan on 01-24-2023 Urobilinogen (U) [Mass/Vol] Normal mg/dL Normal [facility] pH Auto test strip (U)Ordere d By: Jonathan Monahan on 01-24-2023 pH (U) 6.0 [pH] 5.0-9.[address] [facility] Coding Summaryon 01-23-2023 Coding Summary HTMLBase 64 McrkgdahVVs8uIn+PGhlYWQ+P V7GQOUrE04nhTEhlW5yF0IDFK lOSywgQVBQTElOSyIgbmFtZT1 kaXNjZXJu IC8+WS0sKTFiSukzkPLwi4L6q OM7D87glx3pPJyosKK6BEIoRe Iphlzjv8kvdRo3IZncUuieBzA t BCBosF26BYR2oG79He56eVCtr NXdc7mxoTw3GdReMXFdJBD5wZ kyNFjto7XnOYFgL96pkCLud5J 6 JMWlsLwzjTVvLcRebUS0vH4fF Lsbyfmgx6ymallqXwq6pd07wV Gdo2R6tQS3A6AwyiR6SCZubEX g FwixeLXRuW5culvgt5tznobuP aRtSCNzDHl1OOk0JWScvPhhIr HzQH28QST7WRMlrrFtI5OsGSF s zZzvYiZ6i2V1An6HP2RMHdvcI 1VNTUFSWTwvdGQ+HC25ra36M5 SvBojyBgn7QSYcRXF1pTA7iN9 n BYZjCWfoa2L6pOO4Z7SlspIgb r0bx0fkDJRhFUkrS99gbCNgg3 M7BFIwxGD5WCKxsJgdYdLypI5 3 Oyc+OOGneErbw6VuYscvs1yvr 8adgLb6HvkpGVQkagYhfLwrMA Y9x3RaUb0qMFGtwVW6rRX2uB2 i TgMbUdG3QBbdR757BjQfuJMqX cupN24zT8WwbMU+JSJyVpt6OV IqpYarVU0fO6AzXYOdnktcuLE m gJjuAG3mBYKbwvaeMGAvhG3eF QJoO7g1QxEtDbM4KZdlW3IqTW YhwqxgQd84hA9fZwExGxZ6CNz u H4ZcxrV0PIBcwTGlHWucRMA8V 44mk1O5JBWfOLPkYKN4oHA6bX 1hbGlnbjogbGVmdDsgdmVydGl j FYtgCGlkL280ABBquTvlCjTcZ GluZyBEYXRlOiAgMDgvMDcvMj AyMzwvdGQ+ONVgOUW2aDviTVC n nRFyRMywCl2nmNjlvCdrOO6iC DAtleqqKTWebU6lBFQbsAYkxM gdAE2tXUIsinpic565GzQqZPJ 0 GXQexVFyY4QbbL5lApIsKXQjP LWzT7ZrhBCvPXeoA237ONyjKb U9KWKftsSqF0ElDUUucQkqMdO 0 t3V9Ed0Yw3HnitetO0FvyXFeV uNdCfhrBAm5R2YgFdmerUX+PC 73FAFyAE51NZk8IPX6wBuyQIp i QGMzS1XftU1mNuGnIKKlBGRoR yc+PHRhYmxlIHdpZHRoPScxMD MeGlBekUdwTW2bBz4yHUUjGIP v bJxzsGAaYoZgo0mcISDpWJlyM Y4yyWdzL1MpzBF4EXBnx7f9Wv 05V40kH6IeoBT+FZQcbXK7aWC 0 kF7pHzRvVjX3PHqnN888GgIoe ILlJxoke0xid8kyuSe2BeF2XG HwtdOceWwqRRA4j6GnSw77J30 s IHdpZHRoPSIxNSUiIHZhbGlnb a9thW5sKr7+IILwsMA8hQF5yG 3lAwNyNoQ8TYhaI973NlRxiFK v Dqivy2nef1viqRr5SfNoJOEbp dXnrEpqXRX1z9KhHt55D3WuyM vso7KzPzo0hi84dRUkc4N3eLV 9 Q3OyOUQilnqnuMXtyJqzDB2kO CXitlukTDShlW1yTZWoO0g7Ad XqNbC6VGgjG0FkyxX6NLOmcWP g GYKebWVLfU9uzzphz4vvkyaxJ wFsSJZaJBc2LRp3VILgcAvvSl HvYKL5UgX0JJQ8cTItyO5snLt n mqhwoF6eIvv+EGD7aXLwrLNYY S4eAikiwBE+RFAdGOE0jEqeVY tdTHPudH9lYNEeV5m9GmYqReJ 1 TMnlL7MxjoE0QVBvpVGsFDKmi IILcM7rxjrta2rlkjqxFfFcIV VfLDb2BFl9FAEzsNidOzRwEEQ 0 MjO0EVS5uIFpkI5cmRryhoxar G9wOyc+VysykOlrXRH0VYw4Q2 DcCzq7JVXieIqdFN1okXDkTLj u Vy5waNhqyWsxCW7bOSZqzkhlk 968OtMsn8ajPJWyaXUjOOnuPJ W1M05ip9T9RQPpHUOxMBP7xKN 4 fF1dpHenpexggQIsxEqderCck TqpUKyqCOahU816KNKhlMgqWk MwHWz8D1AvLmk6SVSfkXrfXY1 n cHNjUUhoFs7fxVvmbKobXB3aC DCdnjwjy819ZdIgq7kwNNTrnG FjHAofBAR0O50bl8E4JOBwIQO w OYI0kOM5lC7oiPgavnuuzSWpp PplyyOqqMbdYRyuRFqvD886ZV JiyBqzQhUstQv7F9UbHxd8LZL z oWmsYB1diRXmESgwDo8ntNcfw AtgNI6vOXEibcpfz000HbEmq4 yqCGPxfOXvHDssBSZ3X66af1O 6 TSNzIZFpAFX1rXW8kX3qaHpvt jogbGVmdDsgdmVydGljYWwtYW ebR782WLTtyHqrXrSxdWavlqY g GItxWEf4E1MyMkpjaAQ+PC90Y KEzPM64qDOhjWDrv0hpeKr1Sl DgJISrAAH7mEpsZAmbf7VuAIY t W75zkTHus2A1HEDqwDvnnCCzR vFqyUH7aD6bKFxbzmcmb8vcsb snSgjdl5cczj62nV53R19rYTy p UCXuVEBuLXEqBGRzzNoqzh4nr G9wIi8+ZEOvbEM6mKU8sV9iXK AyGgP5OJoxE911LcWmoJLvBkn j i9lli5iwzAk1SdX1KRCrhuZkf RroWJV2p9ApHc66J38bMCuxSQ NeNOPxPWLjPJWbwHsmdg1ueK0 w Ii8+SCOwsJK9lEB1lM5qUhPoK pS0RYuvM605BiGhpCJwDzdlK2 3aV6BzxBS+ZMEkIyu7PLZltYh s JB8uyTSyKSqjEx0mMEH1GvRzC mUyYSmjT5PaRBWkhhafrawftM B5SKCuCOFqsN36Ol3crEucOWW w zTOZzQ0tqpvwv5gulwjhPaPmE CLaDEf0XMs9LDYnnKaoMtBtJK T3EsB2AME2sWZstV6wvBfecrr g wP6xC8TzSKOlumoaMj91aT1gQ zRiDsL2SZldHrh+F0kWP31MEB MJMQHKNH3ZJMMUAWxKLvgigGJ + DTCvTOL6wAuoJHdyVSBojR0uZ LWeB7w7WbUhPmJ5LKguC5RcMC WvgtboCj02eE5nKsOxLmF7VJx u I0NkwyD9CJSqjUXrIVeoLWB2S 57ih1Q2FIAlGEEpDGK7nWW1nI 1hbGlnbjogbGVmdDsgdmVydGl j FXmnMLwdR730JJTlmMulErBhJ zZ4QaP4SAM5S8SkOes4YZNpzF qtNH1lrYNvCVuaNx4tnXqrjQt g WV2vDYQubkqyTTFveN4nSMSxu ILwaIleVK4kYJDisgcct810Sr FaUTR7DKZwyPIpU1KrcB2tDbA j SFRuNIRnR2HjgHKuNRxbA918Q DtfTsM6NBSmxiRxZ7PkDTRffF qmHfY5g2T3Uo5uIoJMCNEuefs v dGQ+DXNeUUZ7vWqfBIolLTGve T4eXYQuV5w6QvTaOhB7BEdxC2 FqQBYxslgiUt76iY8vXqNwJzC 1 UXizJ2InhzU2GREazNSdGCdzD NE5U46tt9C8BEHrHVRxKEW5zV K1tO9awFksoksdnYHanGozizT y nHuzYFxiQSkzE233AJYbiTeaI kZFTUFMRTwvdGQ+QAFkHVH9gS zxYHjcPJHjqS9mCLEmN5r6YsN w OfY8BFsdJ6BtTTJxrjvqOm38z K7nZaQhFnX6WDvpK2EjfrL6UG RmtATmPBfrSBJ6U57wv7L8VNS w BGSjRUH5sLB0nB8brAhvyvgtf GVmdDsgdmVydGljYWwtYWxpZ2 01KVCitQniVm1QTW49CX91Z0B y PjwvdGFibGU+PHRhYmxlIHdpZ ZSnSUheNAMfSlBtiXleUY6nSd 8jHLBcORKzkCjwfZUcMdSmf5d s TZFhFPipDI5wrIjhQ4ExtCC8G PWtp2u8Mp72S07jL9KjtXP+PG ObiFK3iLJ3xF9xGjZfXoM3LGt p B370BhIzmCMcHuavg8rfw3xlo Hh7NyVcVHCpopHdjMmzOEV5a0 OhKb06Z22uXZooRXOrLFEwLBU i XKRsqSsvuu8zaR0hAf3+PGNvb EJ1eMZ6rX5bRbRrXpQ5DJckQ0 34SpKtpGExHfnqG56eX4DyeDB + ZDVnPiz4RMRqyGxaAN2ooMWvY VinRi7pQRH9LwPtZgSsIRdjJ6 BiBMPkwdegqaulqNM2HIXfJDA w sP56Fr4lcRzfLr5rQWFwQMO9R SNbxPCoV9JseJ7wGlBfGKQrZV EzV0SymRNfKFdtA528BDfmEgG 7 LOXndpUwW7OcLBRcpLxiFyJ1o 2V6My5IxOfwxPNeQP9jFjDnUX d4I6KwBsz3PFEroBvuWM6whJZ k GRlyIf7fzVfkfZrsZZ7eJJKky degx394QgErh1hdTVQofSOhDF kzYIQ1R05ls8B0QAYhHBLyDIF 7 qLW9vM8nvZqodvgujXWqxCowg hIurUvzHDunSQgvU991VRFmkO vcViBJYqb9Y8EiIpy1VUVvgBy s KH2foKNuPDdxXj8lqKmiqQhvG V2cSTMdmqznf669EqXhq2zvAO DdpHRmBXvaDUR1C97ac5D6FVG w RWRoJMD9pHO5yG7zsKjpckpuf GVmdDsgdmVydGljYWwtYWxpZ2 74DJUctGruCk6HSoh2W1VpKrp 0 RMXvjDqrJV6wmOHrIXsdOb1pa TztqDvqBK9oLVJdogzro663Ti Ero7rjFIOliTYoFEsgFZF5C37 s w4E9YSCbYATeMVM3rUN5pZ0kl GlnbjogbGVmdDsgdmVydGljYW beEOpgS101FMFpoOarNgIrxGQ y OjwvdGQ+CR59to11K0CqCsrmH ad6SMQmMLN2bVB2yW3aIPVtKR kqk3A4dLI0G9GxveSwyk9gx9a s YXB (more content not included)... [facility] Coding Summaryon 01-19-2023 Coding Summary HTMLBase 64 SxlorjmtELw6dJu+PGhlYWQ+P X8EUJFmC95uaOGlxV7pO6VHBM lOSywgQVBQTElOSyIgbmFtZT1 kaXNjZXJu IC8+UT4uRNQuCwwmpTEle8Q2w ON5X71qch1iRYmzqPX9MHHgYs Rawgvoh4jmmJv8YKnpZnjnYjZ t YJQqoH19VHD5wS46Wf69sXJso SJiy5ferWh7FoMbIYVbPAY8fL epCSuie1ReHUUcX92qbILun7B 6 NFSfnLxmxUWeGsMihSZ3aX2yG Itkbzpim0vsbbjwSdt7dc02sU Kcw4X5fTB0S8RqmtC3ECLhwLT g IdbpnIACdR9mgrxid9afcubtR gZgGVGzIBb0VPq2HKFrrQheUq DcGR41NJC9ZIZhsuFfL7BtYNV s pUgmBpA6j0L2Sz4GV1AZPivuQ 1VNTUFSWTwvdGQ+LD99fn59Y8 PjYfyaYde4AGOySDB9tLI2kC0 n JVMfIJdxm0X3lBL5I2YykuQjr g5bw3pdTMBvHBujK12lnGNxt7 M1AFPzkKN6NQPpaWtaVvPobW2 3 Oyc+QYXovLffe4JaHallo4ydw 7dhsHg8XkhhEBVksrKtkTtnTL B7z3MxZo2hUOUujJZ7dNH9uN6 i LgTaWoX3FWggF008XuAcaVJaP yltV63nQ9BpwPE+DTKeJtk1ZM LgiLfyFG8rE8TbQDPhjstvwJT m oShzHJ9rGXShpnqtAYEosO6kC KHaG6a4TnPhPqM4BZjvJ6EaFE YuvdfwUn52mK6qYqYcTtA0YNt u J4VpxgX7LFNnoSRdWEjuITE1R 67xl3U4AUAcSUZyXLQ6tHH1gU 1hbGlnbjogbGVmdDsgdmVydGl j NRbvLMnbV209QCGztVhuEmAhK GluZyBEYXRlOiAgMDgvMDMvMj AyMzwvdGQ+KCHuDWH4yXduRSN n rYMlFKhvSy8rlSfcaPdpIX6bC WUyoosdMIOpzT8uANXkdAWqrO vtQN7jROGkewzku861FaFeWLX 0 FTRzeGVlL1QtmR5mEtSfURWxE FOqO6HhaSHcDInyT142XPdxUf M9LJAdalZmH6SgNOTcoBwlEdF 0 f5E1Sr6Yq1AjpxpgA1BtoZXrC bPjPgahKKl6Q7YnYvdxtZM+PC 24FLWaYR78DBu0RZS4cSglEAg i JCUmF0QbrX9lQaRnCDInPMGlC yc+PHRhYmxlIHdpZHRoPScxMD OfKjHvfZdaDK3yQz0zXXOsEWZ v nIynuOOzQcGfg1xvEJJsRUkiX E9wyZjuM1PymBC9RLImq0p2Lw 59T60tG4QdkFS+SXCniHA9iSU 0 aL0xDcYvLlI5LSwqX301RsVsv WIfMnekk4ydl0waoSu2YxN7TV BgbpUhpXprRCW2k9ReUp92I27 s IHdpZHRoPSIxNSUiIHZhbGlnb y7gkF4kRj1+HQEwhTV5hZN4gX 7uGxKjZpN7EYrnA324MrDsrGA v Ruzxp1rcn7vauBe1PaSjKEEwz bJaqPmyPSU6l5XkKa58Y6FqeJ wxt8BuFtq6ns20fSTkf7I0sKZ 9 I1UzKGVwdcfqdAWbzInpLK7fX KPkckzpIZUxhA2hYNBdI2f3Ca OrQmH3WCwlU1MoqiS1IDQvnDN g MRUpxNMMoV6bkazvz4bluuuqJ mCgVUZhCVs0OTv8XELsoWvzQe HfBSH9LeG4VSV2eYCmvM9vcLq n xkhqgD5oGke+HNA3oYYgwTURZ T2qYnxmfMS+GSDcHDB7xObtAS awFTBtxW0lEDXsF1p8SyDuJrD 1 VLrkC2LcweH7CUVrwYRzRBWxn TDEfC9ghjges8plfnotBcVrKI RnJKu8IBa2GGYimNphElLbZXR 0 HiW0KFK8gNGcuJ3viKjylwxyf G9wOyc+JiwgfEtcKQY3SJy0Q2 HvDmu8YEPemYxbHP4faZKhMZr u Kh0swIlutAflOP5tQHZggavrt 438GbDqc8rbDZXkqPPlVRutHE A2S12ib5C5RTBeCVGsEBY4cWP 4 rJ5irXdtgywomADneLcidcSxi AbwVWleGEztX643MEClrDvaOa ZiTGc1X0LhVpi1WIXrxBiwHG1 n sXRqEDlhXh0lcRfsvXdwLM6aF AElnyuua733WrIfk1gkMNWieW TqFPsgWUT5G51vu9H3QDUbKCY w RYY8eSU0kN5ibUydpkwuqXSji LnbasMlwWguBMtmSSnbI591WV EelVjvIuFmhIp8P1BvZzg6HPY z wSsqHW1fjKWdXMefHs0xtPcwh ZasBI1fWJTdohyqr174VvPpo9 tsZIPtdFIzCAwmOQI0F49eg5B 6 BNJtFATvPWV5yTU5eL5vhZjng jogbGVmdDsgdmVydGljYWwtYW ojI107NIGtxLvhFuRiyGotxaB g TByeVVq5T0ZuBfkgiED+PC90Y UWrJS08sDZklFKme1jgjKc5Xl NiGJIxXDG4oThzTRqrm2UiQSJ t Y43zhSGdu2E1YWAytHojeKBwJ hKjpVA6mA8yIQznduilz7hguf ixSxyaj5zayn67dV17X70zXZb p TGDaMAMcDNQjSJOqwGuows5ut G9wIi8+NMZxyBN2vEU3rT9cXZ GtEoS5NFtbK864PqJjlQMuKaf j z8biw8joyLj2KeW7ASDhgrAzm PzdKSN0l0KkEi91W31xQBllXK PdGMHyFKAxUQLsvPwjqu5rbA1 w Ii8+TMObdSU8qVB1cH2pOdVxC uM6WVmyB354OoWkdUZqXxetA9 2wI2KhuAZ+IKYlTsb3NIUxrQa s ZI1dbVGtVSefJc6cFML3EcQbW rAmGNguN5NzFHEruoyrnvfybN T6FNIpHFKgaI62Xt3jqMcmSVS w mFEKjD6yuobjh2edvxsaBgFzN LHnSRj4HWs7XMGyyUdxKsCsAN G3JcV4IWQ6uRRdrP5baEpaohi g wS7nA4XzMRMvmbbuEv08kQ9pT tTwMvU8ZZaaWwp+B1tBP63MWT FBDDXHJR6KFJHVYNsWAwiatHF + JCRdKEL8gUdvDPjwLGXpcY7aD COmV8z9JzXsYnG5ZBduU3DiLM XvqwczHw58eQ9zWdYkAhM7MHu u Q8VdwxS1CPYwmQOlXCvpSTP8P 88yr1G9AKDpTYLtTCD8aPP8vI 1hbGlnbjogbGVmdDsgdmVydGl j UKnzJOguZ534PAUpsIftLyPgM nQ5DdT0MWO2W4ScNvt8FXQhvD rlGA0kjTApFPflPf2ruAwdwGw g WW6aTYDiqpqdQZWixA5pTEToh QLzyNwwCK6kSYWerctgf010Xy KvHKJ2KUQzcCBkT8TahW7sLcP j JAOvLJMkR5RexLKqBNjaM223Z SykDuQ3CTHqssZdF9ZrOZHgtU viTcL7b8E2Gs8cMqXUPMWfkak v dGQ+LEZwHPL6aOouDHlgSSWtm X3nAGQzK1l6UoWwBuH6QVqmD5 DePTOcdhkqBv10xT1wLsTxCcW 1 LQxqS0DlkaZ4SPWbkWIrXBybK WT2A00ag2T2DAHcJTGfCHH3eT F8fJ0nuYvftmnkiNAaqIzqjgU y bLztYBeyMDkyD375QBUnoDjgO kZFTUFMRTwvdGQ+BELxHLF0wE rgXKmhVHDcrY2xRKXzI3t0QsQ w MtB2UFxhT1FcWEWpoywyAm16a A1dZjViGzW7PYsaU4OzqmY3KR ZxsZBfZAbfOQK4H59ik5H7UJH w CNMuRBY4bLP4wR7jxYmcejwhx GVmdDsgdmVydGljYWwtYWxpZ2 10PDRadLvwYwDvAULpCX4zvRr v dGQ+CT34zu00Y3EtKqrrKoo5D DRfYZY6xOK0dC1dGQTkAMkzt8 J6zYP3C9LrwbIapz6eq0idAGK z ORniR22vjOYdg1P9BCQugKH8R QKpdOsfFnPtmZ74Pdi+PGNvbG nlg7PpUkrrw7nqj9gssMu9QrU w OHViubXfdXlsDMJ2f7DeIa80O 29sIHdpZHRoPSIzMCUiIHZhbG khcn4emV6dZn8+ENSbzHG8yZN 0 vK0gYuUeLsM8LSqbD307FuZvo MYtXcfjg9arw4aaoIj8NrYxAD NjfaIisAyrSLF5t8QzUp15J8N v kHami6RhBmn9wv11nRIlg6O8h DB0G2PoLYNhtanvjCVhbXknIJ 6bTSNopisnAGCfeF7lIYLbQ6p 0 FxHvByT0CLzmJ7PevhR2CPSrm KCuRBYhoYOUkK1bfthpi9xhjc trFnQoQOAtXOr7SBy0JUDmsTu u PdLoPJI3StB0CJT0tIGhlK8hf NpwtwellV8uCoo+STf6b3iznL IpKV7ogUR5XY28TX64oPDmy3D 5 jKF5B2YvGEGfpsiidcackLT3X LVtPWWwqQ58Cy6boZeyPm1cTX LxTJH7SGEauEUvZ2BumC9zRpY j OYQfHDVvC4PzpVHjNNsmT231Y DabRwJ1SYAxvjIuU2QiDJUqeH wzLpC6a1O0Wy1QUA74AQ04LW6 8 vYElv8I7cUF5A0CgBVXqovrmk oiilJY0LWCvDVTpcV62Fq3ygI cvJm1lULSqFAW8LHJcwZHnI7U v jR5dOvDvBJYhOBHbC2FrhJNzE NfiW339SRlbRnP5VCLrmbYlS5 OqLRPimPdpAxA0q1B4Ta2AYk9 6 CD89TH92uQCcv2T2uXO0Y6NcD SHhgnhqyordrGC9BBGvSJPveG 65Gd0sfNhiEv4pRPLdINM4LOF p bQSgD2ItaY1jCeZqXNToXAEmL 6SilOVdVLjmS067CZkcKdF9AZ VkcpLhE8LlFKWlmZbqRbH9i0J 7 Pi6XOEjijpc7D5WhIhgmzKD+P B70EALqOE03jRYziHYhu1qsfU m2GvOrFCRiDMQ5oFihQVjyo4U k ZXI (more content not included)... [facility] ED Clinical Summaryon 2022 ED Clinical Summary [facility] ? Urgent Care [address] [place] [address] Clinical Summary PERSON INFORMATION Name: BARBRA CLAROS Age: 27 Years Sex: FEMALE : 1995 MRN: Acct#: Visit Reason: UC - Shoulder Pain or Swelling; RT ELBOW/SHOULDER PAIN Arrival: 01/16/2023 11:29:24 Discharge: 01/16/2023 12:40:00 LOS: 000 01:11 Check In: 01/16/2023 11:29:24 Checkout: 01/16/2023 12:40:00 Address: [address] [facility] [address] PCP: Provider, None PROVIDER INFORMATION Provider Role [...] Sling Follow-Up: With: Address: When: Simona Holloway [phone] Within 1 to 2 days Comments: Call to help find a local primary care physician. With: Address: When: Return to this practice DIAGNOSIS: 1:Right shoulder injury Patient Understands: Yes - Patient/family/caregiver verbalizes understanding of instructions given Comment: [facility] ED Patient Summaryon 023 ED Patient Summary [facility] ? Urgent Care [address] [place] [address] PATIENT DISCHARGE INSTRUCTIONS Patient Information Name: BARBRA CLAROS Age: 27 Years Date of : 1995 Reason For Visit: UC - Shoulder Pain or Swelling; RT ELBOW/SHOULDER PAIN Arrival Time: 01/16/2023 11:29:24 Primary Care Physician: Provider, None Attending Physician: Esther Friend PA-C Comment: Patient Education With: Address: When: Simona Holloway [phone] Within 1 to 2 days Comments: Call [...] strengthen the arm. General instructions ? Take vcuf-jty-ketmjav and prescription medicines only as told by [...] provider. Document Revised: 02/18/2022 Document Reviewed: 02/18/2022 [employer] Patient Education ? 2022 [employer] Shoulder Range of Motion Exercises Shoulder [...] care provider. (more content not included)... Normal [facility] Amphetamine Screen Ql (U)Ord ered By: JUANY CHOI on 01-14-2023 Amphetamines Ql (U) Negative Negative [facility] Barbiturates [Presence] in U rine by Screen methodOrdered By: JUANY CHOI on 01-14-2023 Barbiturates Screen Ql (U) Negative Negative [facility] Benzodiazepines Screen Ql (U )Ordered By: JUANY CHOI on 01-14-2023 Benzodiazepines Ql (U) Negative Negative [facility] Benzoylecgonine [Presence] i n Urine by Screen methodOrdered By: JUANY CHOI on 01-14-2023 Benzoylecgonine Screen Ql (U) Negative Negative [facility] Bilirubin Test strip Ql (U)O rdered By: JUANY CHOI on 01-14-2023 Bilirubin Ql (U) Negative Negative [place] Color Auto (U)Ordered By: LEIDA CHOI on 01-14-2023 Color (U) Yellow Yellow [facility] fibronectinOrdered By: JUANY CHOI on 01-14-2023 Fibronectin. (Vag fld) [Mass/Vol] Negative Negative [facility] Ketones Auto test strip (U) [Mass/Vol]Ordered By: JUANY CHOI on 01-14-2023 Ketones (U) [Mass/Vol] Negative Negative [facility] Nitrite Test strip Ql (U)Ord ered By: JUANY CHOI on 01-14-2023 Nitrite Ql (U) Negative Negative [facility] Opiates [Presence] in Urine by Screen methodOrdered By: JUANY CHOI on 01-14-2023 Opiates Screen Ql (U) Negative Negative [facility] Phencyclidine Screen Ql (U)O rdered By: JUANY CHOI on 01-14-2023 Phencyclidine Ql (U) Negative Negative [facility] Comment on above: These are unconfirme d results and should not be used for legal purposes. Drug Cut-Off Concentration: AMPH 1000 ng/mL FIONA 200 ng/mL KIMMY 200 ng/mL COCM 300 ng/mL OP 300 ng/mL PCP 25 ng/mL Protein Auto test strip (U) [Mass/Vol]Ordered By: JUANY CHOI on 01-14-2023 Protein (U) [Mass/Vol] Negative Negative [facility] Specific gravity Auto test s trip (U) [Rel density]Ordered By: JUANY CHOI on 01-14-2023 Specific gravity (U) [Rel density] 1.007 1.001-1.[address] [facility] Urine clarity by refractomet ry automatedOrdered By: JUANY CHOI on 01-14-2023 Clarity Refractometry automated (U) Clear Clear [facility] Urine glucose measurement by automated test strip (mass/volume)Ordered By: JUANY CHOI on 01-14-2023 Glucose Auto test strip (U) [Mass/Vol] Normal mg/dL Normal [facility] Urine hemoglobin detection b y automated test stripOrdered By: JUANY CHOI on 01-14-2023 Hemoglobin Auto test strip Ql (U) Negative Negative [facility] Urine leukocyte esterase det ection by automated test stripOrdered By: JUANY CHIO on 01-14-2023 Leukocyte esterase Auto test strip Ql (U) Negative Negative [facility] Urobilinogen Auto test strip (U) [Mass/Vol]Ordered By: JUANY CHOI on 01-14-2023 Urobilinogen (U) [Mass/Vol] Normal mg/dL Normal [facility] pH Auto test strip (U)Ordere d By: JUANY CHOI on 01-14-2023 pH (U) 8.5 [pH] 5.0-9.[address] [facility] Coding Summaryon 01-12-2023 Coding Summary [employer] 64 AklvcdbrUGq6wPr+PGhlYWQ+P R2SUHMsO63sgBFrtZ1mN9EBDL lOSywgQVBQTElOSyIgbmFtZT1 kaXNjZXJu IC8+AH1pHVArLdgveFLdr6P3b NH4T99fgb1hLBjufPN6FCTmDr Ecxwbgl9xynTo2NGoqDxvbFbK t DDFmcJ01UTJ6hX76Tx70cOAcx KNvc5zadQj5EbGmDFFoHME2mC loZIoyj7WaRSNfI90ouXSnc7V 6 FNSitVsmrTYjSkIaqIH4vO2wQ Nwrhxlsk1apeucfJai0rb03lK Cdu6T7jSM9F1LewjB4KJQyvAE g EfzvlXXOcP7ffnjkz9uhkmbpS pKlYIXpUEz5IFi2QXFywBuqGn RpKM13JCQ3GLAfffFdM8XaTIE s bShfSgN5h6G3Sp9MN0CBTshiI 1VNTUFSWTwvdGQ+UM65gs21I2 EoDhljRlz3HXNoQKE9yTU1sU3 n RFCyMAacv5B7nVP2X8IiayEsd l0wc8tjEIOiJLufB97svPGjk1 W3IWCpkFF2VJMytGziOhGnaI9 3 Oyc+TZKkfNlpt0EeXcepw3acd 2oiqDe9UekuQYEcrxBcpPliAE A1v6MbRd4gENLvuKQ9hXI7jT0 i WnWkZnP8IEwgA859UkIyzAToF qqaN77fO3IkoUJ+KAAtVll4OB LtzUkwAD5lU8LmPOFyxdqzgRV m lCtqVL2qEWJmqumnPRXktG3yQ GLoU1n2BmFgInR6FPwtW6YoGV GtnsxlDy35vA6oErBnOsU9MWo u N9IaokE5SNIbtEJiFXfgXLB6S 04lb8A2NCHeUQCmJTT5lWS8xB 1hbGlnbjogbGVmdDsgdmVydGl j CLyvVJadG476GGQwcDlkHpCcJ GluZyBEYXRlOiAgMDcvMjcvMj AyMzwvdGQ+FTVzQUZ9aVtkZHP n zBLoSWnzDx4glKuktDozYX0tV WQgepedQBMhbA4fPNQgaSRvuA ppJT9nGREvqdlad995WxWaMSK 0 IMLqbPTrP4JycA5tBvSfEFEiQ LEmB3GhcMHjZAhjY952NHpkVg F1OSAtcaAkD0WzOCSihZzhWeE 0 v6P1Fj8As9SkncxyS3HniDJoS gQuXpmoRHf7E4BrBbglsZU+PC 83QHQqXM21WHx0TBQ7tDutWNt i HXVhU1KuzO0iIbVdBNEvKMXdH yc+PHRhYmxlIHdpZHRoPScxMD ZeQsXczMthNI3qPm5gWSNuYVE v cOxmdINbToQls3hiFHQlGSdpB D7jcEeoW9XpsAL6URLmi3y5Py 14D33oX1HtlOV+MGDfxAI2lZJ 0 cW6xQfZtYfK1IIivJ084KeSqa ZOsBdodi7dzr8bgxAd7WzB8WP QvxxUdeYkzFDJ7w3UcDf68O43 s IHdpZHRoPSIxNSUiIHZhbGlnb m4pdW8fYt7+HLEhjAU9jAA9yZ 5hMdYcEdY3GHmyA791InEaiTG v Udqxf7vmg7azaFl3YqNaMKWrb iRbgDreIVH4k2HdGr15E3GwwF cjd3TxTri4rr33aXNut7F4fAC 9 J0FlUXBwqmdrlQRnzYagZX3wE AJexjocMWRqdL8bVHCjE7w1Jq XgCkZ4IWkjX0XneoF3DRScdUR g GRWvgFEBaA0tomwpb8dxghluX cDnVGOyEGp8XEt0ZAYksSriJf UqPNX3AcM0NWD5xJOnjN6upWk n jdnldS1vOan+FLQ3tSJgrJEDM F4wIbyboKP+NXBaDTU4jGecOV ckDDKkyF8uVANcG9z8FhHoLxJ 1 PRffL2YoczN2NQNvkCXyUCBaw NIZlT2lzthft4antcojZlTnUV DgZWn8FZx5PUQrjCpfWmNpVCU 0 BvD1EZN1xDBrjZ9bxFfsyjikt G9wOyc+HwvcbRafVXT1FKp1E9 AiKnz8ELNpxQobUH2liJAxRKn u By8ruNnkgMsxUT4tWDYxqxbse 995SuSvp5rnRCQpyUUzLPbsPP L9R01eb9J0CQDoPJCdVRF5uMQ 4 tZ2bqDgipxcugNHwjZgbmnVss ChqRHzhZUifT741HLZycJutSn AhJLf4C3GkTnc1BYDaiNfeVU5 n vQCtDSuhYa2jtFfbcFkbAJ0vN IBpbuckd489LdHss2ylYKZnfG MsATxhYWL3C38ws2B9VGPzNEB w UEY3aHR0mX5dkCepjouzmZLpu VtgweVrkMrzAPlyNQuuR965GH NgnJpcLcRomPd7E5DyOti1UWY z cUpvRP3ldRPzUUuvGt8edPjjs IeyHR9uVTGziatvm710LfUnu9 mlPFTuoJFdUAzhFYQ1L93ag8G 6 ONWtINEwXKX4tRW8yQ3twRgoh jogbGVmdDsgdmVydGljYWwtYW wiJ804WURchOqqOsEmaZelzwF g DKrpPAt9I8FxAtudlNB+PC90Y BEmEA26fMEvuFKzp6skjLi9Zf PhGGDrSVG6jDwlTXvxk3YwHLY t W27ufQVrc3F4YULpgQxooVOlS eNgaVZ7aM6lVZyepiydi2afhl ztJdmlj1nsns18xL12R59zFUv p JFTaPSRbYVHjISVhnXzfys5dz G9wIi8+GCIxlDE8lKT4yV8rBK JrDcH4KGdyR015PtOysKLwJbk j l9edh0eosBy8WtR4UKCdlfVzr QolLJA9n2HhHd63Z02gPJewDC DxPNAtESYaRXGwaYbamq6wgD5 w Ii8+SONmxKW2xFB5zY2zCmElU cN0DEduZ892NaErmNVeLylkF2 5kZ5DbeST+HKCnWty7UGUnpEp s PE7opHEhRBshZw1mQAS8DtGeS wUiVDqwM1TqPXYftccyclzxkD K4LBNrXOKpxY39Ym4ocDpeTHL w pCCDiL3estoqd0ceusteHeWxV HHxUCt9QTt4NZAygBpuKaPpPI Z5RmM2YAH8pJMgbT8axBxlfvg g nA8vF2SnSRLswqagAf50wJ6oR sElMmZ5ZRjxOef+G0dQZ23CKQ JKXQBVOU8RVOUELXeZQbszaYJ + NWBpCFI1lUnuYRqrNHZyhH1oF MDmQ9y7SbMeOoX5QEluV9ZxAH PwegjkMb68kR3uMjVbBlI5ZAm u B1CtcyM9XOEbbKSgIGdlRZK4A 85po7H1CFVdZZBiUON7mZS0qG 1hbGlnbjogbGVmdDsgdmVydGl j UOsaVNsaM457WDWyjBggWvCwW iZ5QwQ3BMK2G9UvGxm7CYWanW myYW4vgELbXDrfMb2anCdhnBb g SC9fUMMfnphwUOQnbM0uJKDta HLxaDtpSZ3lODIzkgdct930Wo HvIEZ3RQWiwDCgU5PpkY5uBlC j WPZoNYYpN9YemQItRIrcN992W PukNwY2ZUMeksGqY3LpQVDetV upXbO3l1W7Vw4rMeGFRJZghsn v dGQ+CNKyKAJ6tRenOAmwUREtx E2lGXCdY6k0ZpYwWwB6IFwzG4 NsXNEjnbzgMx97nD5rHfKeFoW 1 TJmgH2YevrE2GPQitUGaBLhzJ SM7Q98zl0E7HNPsKLMpTRO2lT K9uE3cvPwdjjiywVBrsJhhstH y rNpdAJqyDQjkG663TZIepIcsA kZFTUFMRTwvdGQ+QDPsNHF0sK okSSitCVHumU6lIAIpK9m0JxG w KeS7QJzxJ6OqCMGamnrfBq98i I1cMcRwPbV3QFzzK4FmlfN4EQ BfbVYxZAxsWTG3X01jt5S2MJB w KIQnEKC6kFM6vE6vyXhhvdugo GVmdDsgdmVydGljYWwtYWxpZ2 20NTJfhLwvKl7RBB83NY25R5B y PjwvdGFibGU+PHRhYmxlIHdpZ YRjODoeWJJdQjNnpUicNK9dKf 6yHERiRGPcvZgidOJiOvMac4x s QRDvGMfvUD7xaObdR2ZulAS2Q IBen6s6Xb50M94rQ5PlcTF+PG UraDY9uGN1rM0aKtRzFdV8YRb p H291HmCfhDGyAbeve9wtb1gzz Xt1FwOlREEfugIveMbdTKF6p6 ZrTj29J45xOVcfDZHnPKNzLOU i VKVxkOhfzn4ljA3xRo8+PGNvb AP6tCM7pJ7lPzBnQxS8XStfG1 88HpQssSTmVadvS64fC4ZdeWB + DZLuSdz1SHSleYoaOF3wiNQoH CtsBb9eSWT7ZnMwDqEzDHbmW4 ReYFMjkrkslqqwrGF7OWGhUDG w hI23Uo1jpEarQy3mJJIkCIT8O BWqiTLaL1LayU2eFiBsRJSxIW JgH2TmlQDrJLbuQ814SIjhQgE 7 FWKqunEsG8OtIWBshAmrZwG6y 5T2Qh9FoIhusATaES5nBcUfTJ z4P3JpXny2QUUqzJbaMR1ocCU k KDmeRg8meWjllFptGZ8kFMTxk xkbc931JbMgf9hqFRAnoBCiSH roIIU1K85sw6D2BKGrNLYdNIN 7 eMR6gZ8xuVelqsnpeTGuzBiwf dCojYhoFJreDRpcU178MZTxoY agDnCPPlj5W1DaToz5HJXnpAw s JA7qmWPdSYkdGk6ulSssqPlkK A0sGOKjmimrj713ClAbv2iaAC ZfnLJyTNgpUTB3O97zj5Y6RAV w GEZoPLG5wDP4iW7dxAyeuyzoe GVmdDsgdmVydGljYWwtYWxpZ2 29NLWbeWmfCl8BHof8E2YeAkv 0 JLMamFumHZ5viSHhIGxhNw7se MdivBzpBT8lIDMmzlqjq450Tr Usj9qgKQPlaJOgSCajPXV0Z00 s e9S0JHGwSOSeDSV9wJR4tS9ya GlnbjogbGVmdDsgdmVydGljYW mmFGgzF145XWXnpFgvSlQhmYG y OjwvdGQ+PF57yf12N2MxHbgwB ny3IJKxOHJ5kDQ3fH7dOTYlRN dlu1S7pLM1I0SsrrRqhn7yu5t s YXB (more content not included)... [facility] Coding Summaryon 01-11-2023 Coding Summary HTMLBase 64 JhmzrokoTKw0kXv+PGhlYWQ+P G5NJIEiK63wzXEacB9jW8VJUK lOSywgQVBQTElOSyIgbmFtZT1 kaXNjZXJu IC8+GS9lYDRmMbmhvRVrg3R6p DJ0K42cbn0dASedkND8LAGzSf Sotroxz4lciFe9WGuqZponYuW t LZSsuH53EZZ6qQ54Cj70nJIom ULoq5vcoHu1UqUcBALvQWZ0yT icZKvfd7QpNZRuW75bxSHjm4D 6 VLBnrOhcvQCyXjBxbHQ1pZ5iL Oqslwhfc0noqhaoRwt6gf41aG Jyn3C1iGB4Y3CcnvO6NMBbjXO g IjsuzRBTcP0wplekm8xvkqasF qFxHYTpQXi1NPc0ZOOubNefMo CgRA75OCA0QKPtydTwC2PtXNF s uAaeTzR8p2C4Sa1BT3XDOngrI 1VNTUFSWTwvdGQ+PD92ef96D7 KmZmgnWdn3IYDyDNH0fGS4fZ4 n DZUkRUqjo9J3oOP1Y7UhxiAcg k4en1wiQCAlEMahF43fhOSxs7 M2MQTmdAB0OAByhYysPwPmqV7 3 Oyc+PVPpjRmfe7DbQqddf8mhm 4jviLy4QuxlWBYntdBnoMuvMJ H2r7PoEo5rZAAmaZI5bRO7tP7 i SqRmVoZ6WPxpX109YmYqdYZdV dcnJ58lO2AjrCP+RIXaYmk6BO BtbQhaOM9oI8YhDKWnenpscQB m dFvwDF5kUMSqxnpiAHFoxT1qB AXfB2m0EeXlAqF0LHyoK6BtSR EovcqsLa33kP0tZqBdSnW9FZj u C0EmwzI2NEKrzVWaXXplMZG7O 02ja7U0CDNpIRZmWDE9vEM9pC 1hbGlnbjogbGVmdDsgdmVydGl j THwaPWskQ554VCGhiAceKrLcD GluZyBEYXRlOiAgMDcvMjYvMj AyMzwvdGQ+WKZfMCL5uWgrXBC n iTAuDIjkXv0fzPwgsByeWP8fC KJklmdfNDVioE6rDNSldAAyuL sbJT6xCCKrgokjx108KnQxTGM 0 DFMvmMKpA0YmsH9zPqBzYLCcH MVsP7ZkiZGqQVljA066IEgoJh P4VKUmoaQkV1HoMXPdvHaeRqH 0 b6A0Rp6Cz2MhruojQ2LyqGOwC dAgMkiiWJb0S6MoUqkqcIX+PC 06KQYjTJ48SBf0JVW0xOcqHEy i KSWmV2EsiL7xGwWlCRAvVAQjP yc+PHRhYmxlIHdpZHRoPScxMD CwVlEuwZsfSE3gKw0cPSWsXAQ v kVveqUIwLxCiw0tnOWQdZSrfY R5yhXmwM1EzoBV0PXMqm5c9Ng 17A66dW3AxcKI+NFVvbOO1vIB 0 uT7aJkJdJjL7LPueA844XfBak ILkIsnxi2exn7yfcVc2ZyO1GI DyfzBfjDomBTU2s3RqJr49L37 s IHdpZHRoPSIxNSUiIHZhbGlnb d1idK2tYi0+JUApuYP0pIY8rP 6oQwZlKvY2YKhyA793IeUiiLF v Jqhhw8gvz8vrmSr2SnJhXYVmo qPmnJkeTKG3s2CyAq48O7OixS jlh8WzTan6ms81qGRgg2L2tWF 9 N7GeRALbqfwycEYqkIcqEM4bM PCohxikLUFgiL9tMEZsH0i8Ty InXkR5PXgxS8QludY5AOInbKP g YSHtpDFClB7ejvkha4rirdunO zGcFWMbGEi3LOf9XLZgwBwsXt BnUKS7KpI3UOA2qGLmaS5lpTe n hrzcaS9pGrg+WYS3eNOczQDVZ F9vXtdaaZJ+KSQwDHV2jIxuWG dvSNSsrF6zMJGeZ4k6KjGmEzV 1 DCkyE3DvfjK2YNYpfLJuHCAov WTPzO5vmnoob8jnfnhtLjYkUJ RnRKc2HPe1UYUvcKczCcIeMWI 0 GmW9HBP1rKVraK7seEdtlsrbb G9wOyc+SndrmJxrBJR9XTg8Q2 UlEcq9RGKbrJeyDN3uyASlEOo u Ju3dbKinpNosEO8lTTQcyzvsv 054QiPlh3isGWWvwANsRLzpJO F0P32we6L3XZHgSTIvADT2jSR 4 cM3mtIkuberbvRNlzWbxbcVbp JkiKPjqCSqaD468MSItgYufPd VqDTs0B1XtUcq0FNRfbHgpTE5 n hORqMHsfSe6caXtixVgrFA8qX DJoslkdl607EcNxo7ruMMRpfB AbXXvrVRF1A07ai3V0YEQeMVQ w ROP6iSK1bN8rzWxjyvtevSPjc NaayqFcmTyiEAzoTWtlQ698PL WkeVpdGzUhaWo4A9PqFzj7ZVR z fLqeWG9sjOCjWHaxTy9tbZdmm YxsSN2jAQDknqtxt057JiDqv2 ucSCTkuKHgIEvcHHY0Q90lj2R 6 SVNyUKOsYKH4vSF5sH4auMone jogbGVmdDsgdmVydGljYWwtYW iiK150AQQypNltXvWzxXazefG g DVeaBOd9K7BdHznhzFB+PC90Y HYwGJ00wCBrzEDiv2fglNs0Nl JlQTHzKZJ5rUvxDLaio0UoNQJ t M09vzSXxg0T5DTTmsNnypCNpX kQdiJY4gL0wQAyszxztk6yomm icNrcut1kwpf28zI90E52gFHq p GAHvGODwLTRrBPQvvEkgpe9ew G9wIi8+OCYihKL7rIX3iF9iKP UtTxE3SBseI095RyYmlFZgOvl j s6zuy3fonEj1PqP8NQYasiSla MhfVXL1t3AhMn68K08jHBdmBA SnUSSgELKuEDOuiXaelf5hwD1 w Ii8+ZXZtiYC7vQF8cR7mTkEaU fE6CNumF451YyVkkAUqGnrzP9 9oE5MefDJ+KXRsRrj5VISmhRb s SY4gtVMwYEsgDz8nYDY0WuCzX fYiMZmrJ5SxNTFntimkayifzH Z3IXEmIVRqlI50Ct1nhFizLAE w nULIkI4mxvbyh0vbolltLzRrT LNyXHo8IWx7BTAatEnqLaXxIU I0PaI3ATT7rWPmhN0hdTqkdpw g kK8yO4OlWXZikdqcBn73jO4fU dLeDrQ0POtsBem+F8eTQ15YVU ANRDTLDN4OGYKZMWwLLtszvXD + ETTtVRZ9aWajCYvgYIShpX4uF OSsX8i3XdJjQcR4NCmfU3ToWW BibicgMk74kB9iXhInUzE8PUq u V9PtpeL2EYHiqNBqOCkbQKM6M 12pe5S1PWWlXKAyHRM8kAY0bG 1hbGlnbjogbGVmdDsgdmVydGl j LDqxOOecH633DDOliMosKlYjJ nS6ScN0AUH8S6GsUhf7KKVcoP whVK4ldHXrNCqvOu5erLvcpUl g XG4bWYByimleBNBssI6mZNSab QUcqUhhWZ6fDNSjhonrv636Mw UdJAA9YSOaeQAlL3NpwX4cBtG j TQToEPZwV2XdjAHcBWxzX606X CmyWzI2QBHpfcDbV3AyDRQbmD cmXsD4v2V3Cs0fMzWYRXVztob v dGQ+KXUvZNY6rMjfKWqlUMVsi Z8hVYBaX9c5VzTfMaK2UYfvB6 CjOIBhqnzvBg25sG4mMaBuDmO 1 VFjwM9IuoxQ4QOKuuHFrACxsS ZO4A96ze7J4TNNbQMEvMJX1pT P1rP5gnRudxcpyvIDquTwdakP y nTodKJgqLOwoD815XDXcuVifE kZFTUFMRTwvdGQ+EXMvXKD6eO dtXPfpCKPffK6wQTNqS4w8FeF w UtY7ADzaN2GqYVZelsavZs87e C6wFuCiXlL1LWglI7GsofS0YO LzdJEgPRzcIVJ0K12st1M5WZR w RPWrAJG1tYR8tY0lxHtxbkybr GVmdDsgdmVydGljYWwtYWxpZ2 38FZTuwLavPr9RVQ47UE72T4E y PjwvdGFibGU+PHRhYmxlIHdpZ LUlAXenKSEsFsCpeNwtCQ8xZh 6nLJIbYYNusHwooWXnCcIzc4o s HPRrDDunRF2fmSuaE6LdhLN4H MSyw5u6Ap89Q61bM2HccID+PG MonBB8hLS7uO3hPtBjKjD9EYq p P880MtHbxMXiAjtue0uyx8kem Uh8VwOePOGqbmPdjBtvLXO1d1 BsXq81S61nGYnwKMJqKGZvUQA i GWXwlMypmg2lkL4fJs1+PGNvb EC3zPU2qN2bTqOlOsJ0VZevD2 89LvMjnNPtVncxA41nG8LppXX + KYQwUss4UEToyHjiNJ6olLRpO IabAs4sKBQ2PbKjJgAvWMmuB6 DgHYFfvmquvolnxTE3JBMmVBW w xV52Lr7jpVawGn5zFCAyPXE5H YIfbGArD8AqpZ9aItQyLOUnIJ PuM1DftMYfWCozU486NVaqTmG 7 TIEgnvDxJ8GwGCKwgTpfJsH1d 8A4Dc7TnHftbYAmNB0fByVkYV j1R2FoDjl7BDZjbYmbDP5lkSJ k HFfgYq0knKrafEriZE5aKVRek mnyl737OpMnc1rrBBWsbSSkMD deLOO9U60un3Q6MHEgFCMxJJP 7 pUY3xA8yvZthfprmgZProXgiw jGqlMpqXEguKLmhK660FXScbH loIpEZPav5P3VeZjl4TBQloSf s GW4hyTCrUSlhBk6bmAjicOztF O3uKRGussumo412DmQge2ukMN JduOJrUEbrEFU5H70jn7J1ONN w WXVuLYC4eIN6rL0ubJstbmidr GVmdDsgdmVydGljYWwtYWxpZ2 39QNWrjYkmAg3YXhm3R0NqVdr 0 VYOapSyxHS7ccKNmPRnsGp1nx VxrvMkdEQ8lRPEdobddi839Cl Atu1wxJWXpnRObOAstIJI7W02 s s1N2HTClSGYkVSC8rOP9eE1vu GlnbjogbGVmdDsgdmVydGljYW ggTGwuN432KQMggIzgOqKyfSB y OjwvdGQ+HY56oo67O6JaJkbqK oz1IZHaBDV7vAT0qG6tWQFsTY ybm0Q7oVF9O2YxbnCypb5op0i s YXB (more content not included)... Normal [facility] ED Clinical Summaryon 2022 ED Clinical Summary [facility] - Emergency Department [address] [place], [place] [id number] ED Clinical Summary PERSON INFORMATION Name: BARBRA CLAROS Age: 27 Years Sex: FEMALE : 1995 MRN: Acct#: Visit Reason: Ear drainage; Ear pain; RT EAR PAIN/DRAINAGE Arrival: 01/11/2023 07:59:56 Discharge: 01/11/2023 09:01:00 LOS: 000 01:02 Check In: 01/11/2023 07:59:56 Checkout:01/11/2023 09:01:00 Address: [address] [place] [id number] PCP: Provider, None PROVIDER INFORMATION Provider Role Assigned Unassigned Anjel Yates MD ED Provider 01/11/2023 08:03:58 Kat Narvaez PORT CRANE OPERATOR Nurse 01/11/2023 08:35:38 VITALS INFORMATION Vital Sign [...] days With: Address: When: None Provider [address] [place] [address] Within 3 to 5 days DIAGNOSIS: 1:Right otitis externa Patient Understands: Yes - Patient/family/caregiver verbalizes understanding of instructions given Comment: [facility] ED Patient Education Noteon 01-11-2023 ED Patient Education Note Education Materials [facility] ED Patient Summaryon 023 ED Patient Summary [facility] - Emergency Department [address] [place] [id number] PATIENT DISCHARGE INSTRUCTIONS Patient Information Name: BARBRA CLAROS Age: 27 Years Date of : 1995 Reason For Visit: Ear drainage; Ear pain; RT EAR PAIN/DRAINAGE Arrival Time: 01/11/2023 07:59:56 Primary Care Physician: Provider, None Attending Physician: Anjel Yates MD Comment: Visit Diagnosis: Diagnoses This Visit Ear drainage ([id number]) Ear pain ([id number]) Right otitis externa (H60.91) The Pharmacy at [facility] is open Monday through Monday from [...] alcohol and/or drug addiction problems; contact the [facility] On License Of [facility] 09/01 Crisis Hotline -Text 5IHYN jh [phone]. If you received any narcotics, sedation, or [...] days With: Address: When: None Provider [address] [place] [address] Within 3 to 5 days Medication Information: The exam and treatment you received today in the [facility] Emergency Department were for an urgent problem and are not intended as complete care. It is important for you to follow up with a doctor, nurse practitioner, or physician?s assistant office manager for ongoing care. If your symptoms [...] so we can reach you if necessary. [facility] Emergency Department has provided you with a complete list of medications post discharge. Please inform your sales property manager/provider of your visit and for further instruction on these medications. Any specific questions regarding your chronic medications and dosages should be discussed with your primary care physician(s) and/or pharmacist. New Medications [facility] [id number], [address], [place] [id number], [phone] colistin/HC/neomycin/thon zonium otic (Cortisporin-TC otic suspension) 5 [...] collected on (more content not included)... Normal [facility] Teston 01-05-2023 Glucose [Mass/Vol] 87 mg/dL Normal <=139 [facility] Comment on above: Performed By: #### 2 [id number] ####[facility] (DEFAULT)[address] [place] [address] Provider Orderson 01-05-2023 Provider Orders [id number] FF [facility] Coding Summaryon 01-04-2023 Coding Summary HTMLBase 64 ApfpibpfFLn2nFb+PGhlYWQ+P F5IUQMiQ06whZSnrJ6cB5ZAMT lOSywgQVBQTElOSyIgbmFtZT1 kaXNjZXJu IC8+YO2oSBJsNxrmiQAta0I3d GA7C50sze5kYOqocFG1GKYrXl Umygvsk0mtbTm0SIkdVxskDoU t FVWuuL30WJQ4eA85Ix62uZDzb HXth4bobHi3CaSbWQWaDTF8nG rvZWgei9HbNUCaR18hgNSqo0F 6 XRZyzDrxlXAjWuGhxOI9mF3nY Khwttspl2fmreeoOei2du61yT Pst5R2kGK8W7QccpP0LAOriVH g BywztSGLfE1rgrfqf4ednjkfF mPuFWYtEEq5PAc7MNKarIioJu AbJB30QUK7KXDhbkXuK1RcPQM s tYtfCdU8r8M6Sm0QX5OZIekpX 1VNTUFSWTwvdGQ+CV63hl56G8 BjJkkzOkp9HZNlIAN6cLJ9oT1 n ZDToQIted3U0mKZ9V4WwtsDcf j8un5lkCFErUJffF75uqPKsa9 W8ZGXzhIC9RDTdwBabCtFzjX2 3 Oyc+BGGyeCxjj0TyTktrw6ver 8vbfYw2HivxHQUpvlMknAvuCJ A8w4BbMq5qMAEpxOI8zYU2vD6 i IrJqXrK9IWtaA302GaRrdRRsR cuqK97oW0EcqJY+ODSrIqb4DB SnhLmxOB4kU0PeQDXubjffvNQ m kKdgFA4bBIErzdivZSRrdR3rJ BDkB9u9SgDgKpP4MHufA5SbSC ZlwcbaBa80eB1pXiKgOgE3FMh u I3UjanN0POJkjKIpGVwiMTU6J 73vj3W3PINiEXHoZIP7lNA2kC 1hbGlnbjogbGVmdDsgdmVydGl j OQbvPVpbW601XPAjeLslNwBdF GluZyBEYXRlOiAgMDcvMTkvMj AyMzwvdGQ+BKQzGUC8ePosIKD n iSJpWOzwGk9vaIotgRpqTO0nP UAkxvukKRVmmQ8jDCPcvHPebB xuOE8oZOVzkmlhy262EsUgQUK 0 MFYirPPcM9QaqC2wLcQwNVRcC GFiS6OeoTSvTSohD719XTdfLn T8OKXwywFcZ9KwQALmfIqeCcJ 0 x9S6Xz0Ia5RtnyaoE7NrxGZkN dKoTdvqDCm8K3JnEbeabEL+PC 50DRAlOV50EUv0GIJ9rBowDYu i WWDhX5EljE1cViFfCVSaBPDrA yc+PHRhYmxlIHdpZHRoPScxMD HlTqMrcXfgED9oWw7vEBKdWHW v rHrqjEOnYaNhr1ffRCPhREwqE B1xnJkxC2HsjDM8IVKtj6h6Bn 60S18fG2FvxWA+KLUwrXN8iDS 0 nH7fKfPtFxT7FGrsY855PcJzf GVyCvubk4ccm7foaPh6JhZ9EK YeanDiqGrxKSJ5w8DeZu58Q75 s IHdpZHRoPSIxNSUiIHZhbGlnb u2osA3iHy1+SMEcuUK5yHZ6fX 6qJsHfVcK7BLmwO347SzYenNM v Mlbbp0dvz5zlyKg7AsAmTUJvp dQrfBboCII5b6MvKy46X3LtoX hiz7PhWhu4vw05gXShy2Y7lZJ 9 R6NbBBQxjhrgyLMgzPlpXH5dO AAymbnjEQKskW6gPINeL0l6Ak PwDhD3DJamK0JitqJ6VFKqqJY g MCSmxBJMfG0wcuzdz3phptlcO rFvXAJjMVe2OXj7HEJmjCieLw UeUAB6MmC8VBA7xNVwaZ3jnQt n zlapiR0xVdq+HYC7fBPsdUOPF I2lBglccUA+MGCvHKG3iOjdPH wxULIpaS1aBKApT7p8KbKkLgU 1 QFemO4FxxwZ7NKYjjGGeFSOmn QRIhC0jnuupn2kuwwheRjXuKI RxQPx3ELd4RTQryOcmXhNmDQV 0 UsU3YPB4pVQkiM5ppMilezzai G9wOyc+WspogYjtPIC4KGv4R4 DqPje2XAAblPgtQF5usEZdOEv u Nu4rrUnsnZcnLY4gCDPhvrhlh 672SoBpw7pmCRVzcYMyTYqpXE H1I11cs7I2CEKhHGGfMUR8mAC 4 cK1vvOocsdwqoTJhhCkdbtBql ZmeYKuvLDieU586TTGimOfcNo SfXKj3F3FcUhj4UHAxzZhhHZ6 n yTUeTXwaUn1ajWofrYkgRX3oN JOdrsmow991KuKnn6zxGYDaeP VzUMtvDAL3T54dc9X2VNMuFHF w YBK6yKC8fZ6ccQagggfzrYJse DpowxXdkNfdMZpsHIbhS029KJ JydFdtXiOowBs4E6RfJyn2JMV z iAvpTM9vaWNmFWfiPz3wuRbjo ZkqDV1lZRKjwzito735UfWmv4 mjLCIqmDSiTVedRKU7C91fb6Q 6 JOQqTSPkBCB0aZO9lU8pwYtfv jogbGVmdDsgdmVydGljYWwtYW muU939VJZbtAcbYfKihXtxivA g RAspGBp7N3SoTtogiKU+PC90Y BBaCW27rEDlmJCln4vbyCj0Ms GmNAXxKWB4oSrrDGiae3HsAZY t D76zqMCds5M8PXHsaUworZRtU bWdpZK9xU0yVPhiixdqv4xjpw ocYggsx2ocji48uN44F62sZNt p KSEnCYZbNYNgTBFfpLihua3tt G9wIi8+AUYlrEK8vOS5jV7hKX WnIoO5BVkxC258QuXxyBHeLyv j z5ujg3tnzMh7MdF1DOAxyeHnb IsnGJQ3g6WrNl04E55gFEibOY JiGHQxABUkZONypFwqce0hcQ2 w Ii8+JWIjiSE3hUW6cN1dBlFsW fV2XBnlP510OpPofZWmRizhD9 5nA1EjqJL+SJPtZln1UUXnxUw s KB5qjTBdBGvwZv8zSON1ZoZaL cFbYArgS9TiJKExrljfhelzbK H5XSOiXDRjiG50Fb2byXbtAPT w iXXPcZ3ymaukm4jstczpYrHeU XIrSIf7HTx6BZNbnFrcUuYoRE R4DuN8HXU1yEJduZ2trWcrfhe g lU6vF9UeKCHkactgRc36qY0xY uJfRaK5EAdpFnx+N5hXV25MYF QUJFRBQK6PQRBPAUaKRnqlcQK + LTOcDWI6qJkoXYduMKDhmV9dW ACaV8m5IeKmKhZ7KWajV9RvJZ KjnknsIa22oF3pZyOoCtI2ZGw u A2GlmuV3QHHbtCPdFUyqXBY5O 65cx5M2UTReFXMqJZA5pIO2sY 1hbGlnbjogbGVmdDsgdmVydGl j MQlwVJqiR091LCTzvGhtFmNrN wS4VaD5BJD7E3YqFtd0RWShjD voZG7bqKGfXFuoMl5uvOsewOa g LL3kBYZgsmpiNKXykR1zXITdq QLcsEpqRS1aYJNrsjyff631Os CjFLT4TTQitXDxT6PisO6fBjH j CHJhSGZtM3ChzOClOQzvX777F BowNuP1XEFuvzNxU0AqTPAdcQ ecBwZ7r4O8Oi8xLaQSCBDejqh v dGQ+EGNzRHH6nMnjDXnvPXBxq N1sVPJmD7t0CmRjOiJ8RGbbA2 JyOUYdqjghIc34rY2mYuHsDgT 1 DOqzA7IgwqI5SMGybXKxISfyO RJ1Y56ts1A2YTMlYRBgVTG6rM T6wS8cmCtapeutiJIsbAykefT y dFlwRCeiHVuqY555EINxkPstB kZFTUFMRTwvdGQ+PDUxYXW8jO uuDZczAGLlqM0wKZZeX4u0QgJ w NiN2THfiQ8ZmNSLdfkewBg65p I1qCfYkDbQ2UCbsF3VwrbR6PQ CnbNIdAOevZIM5P57bn6L6XKF w QOEeUEB1yCD4sR5kiNvupsldw GVmdDsgdmVydGljYWwtYWxpZ2 16JDIjwBthXs4UGU22YD07F2V y PjwvdGFibGU+PHRhYmxlIHdpZ CCmKVhaZAEmKpBcfZemLW5bRl 8xJLCfZLIvtPaquZUgGzCsp2r s MZAkFUqyWY0zaNqxY6IemDW8X HByc2a7Cb45N97uQ2TnyIY+PG NbxQL4mEB2hO5xJiGyZcJ8YPa p S586EeTswILmDqswx6yaz1jnb Tt5CkUjALZeqqRmcAlgNIU7q6 QgCt41Z80xORjnFGBzHNKeFCP i DVJlzLrslr3vyK4mOv6+PGNvb FS1jSA5lC2dElPxHuN4ZHznM5 85AmHiwOHrGglrS24zZ3BwqWI + DQQgQqa6CCHusYjvJO2rxTXoS GqvPg0eWJW9BzExBoKiVRonB3 LuAMKopkingmedgJS9FCWbSDL w zK73Zv8nsRliCd9xYJFgISI7J FUfsHHoK1PsdI5hKnVtEOBnNO ToD5FwuHTvXQzlO867ZNqdCnA 7 YZJhlaDpV3HsGLNymXqnMkN5z 5N6Kj0FtSqdxINtKH1hHrLzAN u2N5QzDdo0EDGnfQtmEC9hxCS k XMsxFa0djUipcGlrLM2rFVJxh twld663IfRzr8usCEHeqWVxVM czZKV3A02ex1J5AEUqSBLvYFL 7 jUC1iW6eyQolcvprvATdyRiqc xAmqVltBVguHYvcS493LLGvaU ppRrYGSxy9W4ZgAwg0JSOqvTd s MV3pwPXzKFpzMl2lpNbyjFjeW R9uGVZjgdxix415DgNbp8rpJK MovDFfITovFAK2L00bs4N8SBC w MZVyCCL6sVY4mF4icRmsfrvgh GVmdDsgdmVydGljYWwtYWxpZ2 70JRZuySljEm4YXao9R8VqQwm 0 DKEznYuoBV2urJFbUWjlZh8vp AbmfXipDP1wEQIkekvhu364Ua Rta5zxDRWkrVAiLZfrTFM1V15 s n9H9MRMoAIYfMXX9jRI8mW9sj GlnbjogbGVmdDsgdmVydGljYW onMUxmA557FKVdhMkdRgUuiKJ y OjwvdGQ+CF76bp06P1GbZmmiM mj9SQNlWHU1aBD4cG7qANCiUB whn5S0aZW1C4ScbqMgka0oj3n s YXB (more content not included)... Normal [facility] Amphetamine Screen Ql (U)Ord ered By: Jonathan Monahan on 12-08-2022 Amphetamines Ql (U) Negative Negative [facility] Barbiturates [Presence] in U rine by Screen methodOrdered By: Jonathan Monahan on 12-08-2022 Barbiturates Screen Ql (U) Negative Negative [facility] Benzodiazepines Screen Ql (U )Ordered By: Jonathan Monahan on 12-08-2022 Benzodiazepines Ql (U) Negative Negative [facility] Benzoylecgonine [Presence] i n Urine by Screen methodOrdered By: Jonathan Monahan on 12-08-2022 Benzoylecgonine Screen Ql (U) Negative Negative [facility] Bilirubin Auto test strip Ql (U)Ordered By: Jonathan Monahan on 12-08-2022 Bilirubin Ql (U) Negative Negative [place] fibronectinOrdered By: Jonathan Monahan on 12-08-2022 Fibronectin. (Vag fld) [Mass/Vol] Negative Negative [facility] Ketones Auto test strip (U) [Mass/Vol]Ordered By: Jonathan Monahan on 12-08-2022 Ketones (U) [Mass/Vol] Negative Negative [facility] No Panel InformationOrdered By: Jonathan Monahan on 12-08-2022 Membranes Rupture (PAMG-1) Negative Negative [facility] Opiates [Presence] in Urine by Screen methodOrdered By: Jonathan Monahan on 12-08-2022 Opiates Screen Ql (U) Negative Negative [facility] Phencyclidine Screen Ql (U)O rdered By: Jonathan Monahan on 12-08-2022 Phencyclidine Ql (U) Negative Negative [facility] Comment on above: These are unconfirme d results and should not be used for legal purposes. Drug Cut-Off Concentration: AMPH 1000 ng/mL FIONA 200 ng/mL KIMMY 200 ng/mL COCM 300 ng/mL OP 300 ng/mL PCP 25 ng/mL Protein Auto test strip (U) [Mass/Vol]Ordered By: Jonathan Monahan on 12-08-2022 Protein (U) [Mass/Vol] Negative Negative [facility] Urine appearanceOrdered By: Jonathan Monahan on 12-08-2022 Appearance (U) Clear Clear [facility] Urine colorOrdered By: Michaelle Monahan on 12-08-2022 Color (U) Yellow Yellow [facility] Urine glucose measurement by automated test strip (mass/volume)Ordered By: Jonathan Monahan on 12-08-2022 Glucose Auto test strip (U) [Mass/Vol] Normal mg/dL Normal [facility] Urine hemoglobin detection b y automated test stripOrdered By: Jonathan Monahan on 12-08-2022 Hemoglobin Auto test strip Ql (U) Negative Negative [facility] Urine leukocyte esterase det ection by automated test stripOrdered By: Jonathan Monahan on 12-08-2022 Leukocyte esterase Auto test strip Ql (U) Negative Negative [facility] Urine nitrite detection by a utomated test stripOrdered By: Jonathan Monahan on 12-08-2022 Nitrite Auto test strip Ql (U) Negative Negative [facility] Urobilinogen Auto test strip (U) [Mass/Vol]Ordered By: Jonathan Monahan on 12-08-2022 Urobilinogen (U) [Mass/Vol] Normal mg/dL Normal [facility] pH Auto test strip (U)Ordere d By: Jonathan Monahan on 12-08-2022 pH (U) 1.005 [pH] 1.001-1.[address] [facility] pH (U) 7.0 [pH] 5.0-9.[address] [facility] Amphetamine Screen Ql (U)Ord ered By: Jonathan Monahan on 11-20-2022 Amphetamines Ql (U) Negative Negative [facility] Automated erythrocytes count in urine sediment (number/area)Ordered By: Jonathan Monahan on 11-20-2022 RBC Auto (Urine sed) [#/Area] 1-2 [HPF] 0-[address] [facility] Automated leukocytes count i n urine sediment (number/area)Ordered By: Jonathan Monahan on 11-20-2022 WBC Auto (Urine sed) [#/Area] 1-2 [HPF] 0-[address] [facility] Barbiturates [Presence] in U rine by Screen methodOrdered By: Jonathan Monahan on 11-20-2022 Barbiturates Screen Ql (U) Negative Negative [facility] Benzodiazepines Screen Ql (U )Ordered By: Jonathan Monahan on 11-20-2022 Benzodiazepines Ql (U) Negative Negative [facility] Benzoylecgonine [Presence] i n Urine by Screen methodOrdered By: Jonathan Monahan on 11-20-2022 Benzoylecgonine Screen Ql (U) Negative Negative [facility] Bilirubin Test strip Ql (U)O rdered By: Jonathan Monahan on 11-20-2022 Bilirubin Ql (U) Negative Negative [place] Color Auto (U)Ordered By: Hola Monahan on 11-20-2022 Color (U) Yellow Yellow [facility] fibronectinOrdered By: Jonathan Monahan on 11-20-2022 Fibronectin. (Vag fld) [Mass/Vol] Negative Negative [facility] Ketones Auto test strip (U) [Mass/Vol]Ordered By: Jonathan Monahan on 11-20-2022 Ketones (U) [Mass/Vol] Trace Negative [facility] Laboratory - UrinalysisOrder ed By: Jonathan Monahan on 11-20-2022 Hyaline casts LM Ql (Urine sed) 0-8 [LPF] 0-[address] [facility] Nitrite Test strip Ql (U)Ord ered By: Jonathan Monahan on 11-20-2022 Nitrite Ql (U) Negative Negative [facility] No Panel InformationOrdered By: Jonathan Monahan on 11-20-2022 Membranes Rupture (PAMG-1) Negative Negative [facility] Opiates [Presence] in Urine by Screen methodOrdered By: Jonathan Monahan on 11-20-2022 Opiates Screen Ql (U) Negative Negative [facility] Phencyclidine Screen Ql (U)O rdered By: Jonathan Monahan on 11-20-2022 Phencyclidine Ql (U) Negative Negative [facility] Comment on above: These are unconfirme d results and should not be used for legal purposes. Drug Cut-Off Concentration: AMPH 1000 ng/mL FIONA 200 ng/mL KIMMY 200 ng/mL COCM 300 ng/mL OP 300 ng/mL PCP 25 ng/mL Protein Auto test strip (U) [Mass/Vol]Ordered By: Jonathan Monahan on 11-20-2022 Protein (U) [Mass/Vol] Trace mg/dL Negative [facility] Specific gravity Auto test s trip (U) [Rel density]Ordered By: Jonathan Monahan on 11-20-2022 Specific gravity (U) [Rel density] 1.016 1.001-1.[address] [facility] Squamous epithelial cells de tection in urine sediment by light microscopyOrdered By: Jonathan Monahan on 11-20-2022 Epithelial cells.squamous LM Ql (Urine sed) 1-2 [HPF] 0-[address] [facility] Urine bacteria detection by automated methodOrdered By: Jonathan Monahan on 11-20-2022 Bacteria Auto Ql (U) None seen None Seen [facility] Urine clarity by refractomet ry automatedOrdered By: Jonathan Monahan on 11-20-2022 Clarity Refractometry automated (U) Clear Clear [facility] Urine glucose measurement by automated test strip (mass/volume)Ordered By: Jonathan Monahan on 11-20-2022 Glucose Auto test strip (U) [Mass/Vol] Normal mg/dL Normal [facility] Urine hemoglobin detection b y automated test stripOrdered By: Jonathan Monahan on 11-20-2022 Hemoglobin Auto test strip Ql (U) Negative Negative [facility] Urine leukocyte esterase det ection by automated test stripOrdered By: Jonathan Monahan on 11-20-2022 Leukocyte esterase Auto test strip Ql (U) Negative Negative [facility] Urobilinogen Auto test strip (U) [Mass/Vol]Ordered By: Jonathan Monahan on 11-20-2022 Urobilinogen (U) [Mass/Vol] Normal mg/dL Normal [facility] pH Auto test strip (U)Ordere d By: Jonathan Monahan on 11-20-2022 pH (U) 5.5 [pH] 5.0-9.[address] [facility] Amphetamine Screen Ql (U)Ord ered By: JUANY CHOI on 11-03-2022 Amphetamines Ql (U) Negative Negative [facility] Barbiturates [Presence] in U rine by Screen methodOrdered By: JUANY CHOI on 11-03-2022 Barbiturates Screen Ql (U) Negative Negative [facility] Benzodiazepines Screen Ql (U )Ordered By: JUANY CHOI on 11-03-2022 Benzodiazepines Ql (U) Negative Negative [facility] Benzoylecgonine [Presence] i n Urine by Screen methodOrdered By: JUANY CHOI on 11-03-2022 Benzoylecgonine Screen Ql (U) Negative Negative [facility] Bilirubin Test strip Ql (U)O rdered By: JUANY CHOI on 11-03-2022 Bilirubin Ql (U) Negative Negative [place] Color Auto (U)Ordered By: LEIDA CHOI on 11-03-2022 Color (U) Yellow Yellow [facility] Ketones Auto test strip (U) [Mass/Vol]Ordered By: JUANY CHOI on 11-03-2022 Ketones (U) [Mass/Vol] Negative Negative [facility] Nitrite Test strip Ql (U)Ord ered By: JUANY CHOI on 11-03-2022 Nitrite Ql (U) Negative Negative [facility] No Panel InformationOrdered By: JUANY CHOI on 11-03-2022 Membranes Rupture (PAMG-1) Negative Negative [facility] Opiates [Presence] in Urine by Screen methodOrdered By: JUANY CHOI on 11-03-2022 Opiates Screen Ql (U) Negative Negative [facility] Phencyclidine Screen Ql (U)O rdered By: JUANY CHOI on 11-03-2022 Phencyclidine Ql (U) Negative Negative [facility] Comment on above: These are unconfirme d results and should not be used for legal purposes. Drug Cut-Off Concentration: AMPH 1000 ng/mL FIONA 200 ng/mL KIMMY 200 ng/mL COCM 300 ng/mL OP 300 ng/mL PCP 25 ng/mL Protein Auto test strip (U) [Mass/Vol]Ordered By: JUANY CHOI on 11-03-2022 Protein (U) [Mass/Vol] Negative Negative [facility] Specific gravity Auto test s trip (U) [Rel density]Ordered By: JUANY CHOI on 11-03-2022 Specific gravity (U) [Rel density] 1.013 1.001-1.[address] [facility] Urine clarity by refractomet ry automatedOrdered By: JUANY CHOI on 11-03-2022 Clarity Refractometry automated (U) Clear Clear [facility] Urine glucose measurement by automated test strip (mass/volume)Ordered By: JUANY CHOI on 11-03-2022 Glucose Auto test strip (U) [Mass/Vol] Normal mg/dL Normal [facility] Urine hemoglobin detection b y automated test stripOrdered By: JUANY CHOI on 11-03-2022 Hemoglobin Auto test strip Ql (U) Negative Negative [facility] Urine leukocyte esterase det ection by automated test stripOrdered By: JUANY CHOI on 11-03-2022 Leukocyte esterase Auto test strip Ql (U) Negative Negative [facility] Urobilinogen Auto test strip (U) [Mass/Vol]Ordered By: JUANY CHOI on 11-03-2022 Urobilinogen (U) [Mass/Vol] Normal mg/dL Normal [facility] pH Auto test strip (U)Ordere d By: JUANY CHOI on 11-03-2022 pH (U) 7.0 [pH] 5.0-9.[address] [facility] Vital Signs Date Time Vital Sign Value Performing Clinician Facility 04-04-2025 10:24-0400 Body height 160.02 cm PHYSICIAN NO [facility] 04-04-2025 10:24-0400 Body temperature 98 [degF] PHYSICIAN NO [facility] 04-04-2025 10:24-0400 Body weight 87 kg PHYSICIAN NO [facility] 04-04-2025 10:24-0400 Diastolic blood pressure 74 mm[Hg] PHYSICIAN NO [facility] 04-04-2025 10:24-0400 Heart rate 103 /min PHYSICIAN NO [facility] 04-04-2025 10:24-0400 Respiratory rate 20 /min PHYSICIAN NO [facility] 04-04-2025 10:24-0400 SaO2% (BldA) [Mass fraction] 100 % PHYSICIAN NO [facility] 04-04-2025 10:24-0400 Systolic blood pressure 135 mm[Hg] PHYSICIAN NO [facility] 03-26-2025 12:00-0400 Diastolic blood pressure 90 mm[Hg] PHYSICIAN NO [facility] 03-26-2025 12:00-0400 Heart rate 94 /min PHYSICIAN NO [facility] 03-26-2025 12:00-0400 Respiratory rate 16 /min PHYSICIAN NO [facility] 03-26-2025 12:00-0400 SaO2% (BldA) [Mass fraction] 97 % PHYSICIAN NO [facility] 03-26-2025 12:00-0400 Systolic blood pressure 169 mm[Hg] PHYSICIAN NO [facility] 03-26-2025 10:02-0400 Body temperature 98.9 [degF] PHYSICIAN NO [facility] 03-26-2025 10:01-0400 Body height 162.56 cm PHYSICIAN NO [facility] 03-26-2025 10:01-0400 Body weight 87.6 kg PHYSICIAN NO [facility] 03-25-2025 08:00-0400 Body temperature 98.7 [degF] PHYSICIAN NO [facility] 03-25-2025 08:00-0400 Diastolic blood pressure 77 mm[Hg] PHYSICIAN NO [facility] 03-25-2025 08:00-0400 Heart rate 86 /min PHYSICIAN NO [facility] 03-25-2025 08:00-0400 Respiratory rate 16 /min PHYSICIAN NO [facility] 03-25-2025 08:00-0400 SaO2% (BldA) [Mass fraction] 97 % PHYSICIAN NO [facility] 03-25-2025 08:00-0400 Systolic blood pressure 117 mm[Hg] PHYSICIAN NO [facility] 03-24-2025 19:09-0400 Inhaled oxygen flow rate 8 L/min PHYSICIAN NO [facility] 03-23-2025 22:06-0400 Body height 162.56 cm PHYSICIAN NO [facility] 03-23-2025 22:06-0400 Body weight 81.64 kg PHYSICIAN NO [facility] 03-20-2025 08:00-0400 Body temperature 98 [degF] PHYSICIAN NO [facility] 03-20-2025 08:00-0400 Diastolic blood pressure 67 mm[Hg] PHYSICIAN NO [facility] 03-20-2025 08:00-0400 Heart rate 80 /min PHYSICIAN NO [facility] 03-20-2025 08:00-0400 Respiratory rate 16 /min PHYSICIAN NO [facility] 03-20-2025 08:00-0400 SaO2% (BldA) [Mass fraction] 98 % PHYSICIAN NO [facility] 03-20-2025 08:00-0400 Systolic blood pressure 102 mm[Hg] PHYSICIAN NO [facility] 03-19-2025 22:34-0400 Body height 162.56 cm PHYSICIAN NO [facility] 03-19-2025 22:34-0400 Body weight 83.91 kg PHYSICIAN NO [facility] 02-24-2025 10:11-0400 Body height 162.56 cm PHYSICIAN NO [facility] 02-24-2025 10:11-0400 Body mass index (BMI) [Ratio] 31.4 kg/m2 PHYSICIAN NO [facility] 02-24-2025 10:11-0400 Body temperature 98.8 [degF] PHYSICIAN NO [facility] 02-24-2025 10:11-0400 Body weight 83.09 kg PHYSICIAN NO [facility] 02-24-2025 10:11-0400 Diastolic blood pressure 80 mm[Hg] PHYSICIAN NO [facility] 02-24-2025 10:11-0400 Heart rate 85 /min PHYSICIAN NO [facility] 02-24-2025 10:11-0400 Respiratory rate 18 /min PHYSICIAN NO [facility] 02-24-2025 10:11-0400 SaO2% (BldA) [Mass fraction] 95 % PHYSICIAN NO [facility] 02-24-2025 10:11-0400 Systolic blood pressure 106 mm[Hg] PHYSICIAN NO [facility] 02-08-2025 14:22-0400 Body height 160.02 cm PHYSICIAN NO [facility] 02-08-2025 14:22-0400 Body mass index (BMI) [Ratio] 47.5 kg/m2 PHYSICIAN NO [facility] 02-08-2025 14:22-0400 Body temperature 98.1 [degF] PHYSICIAN NO [facility] 02-08-2025 14:22-0400 Body weight 121.56 kg PHYSICIAN NO [facility] 02-08-2025 14:22-0400 Diastolic blood pressure 70 mm[Hg] PHYSICIAN NO [facility] 02-08-2025 14:22-0400 Heart rate 90 /min PHYSICIAN NO [facility] 02-08-2025 14:22-0400 Respiratory rate 18 /min PHYSICIAN NO [facility] 02-08-2025 14:22-0400 SaO2% (BldA) [Mass fraction] 97 % PHYSICIAN NO [facility] 02-08-2025 14:22-0400 Systolic blood pressure 102 mm[Hg] PHYSICIAN NO [facility] 01-24-2025 07:30-0400 Body temperature 97.9 [degF] PHYSICIAN NO [facility] 01-24-2025 07:30-0400 Diastolic blood pressure 74 mm[Hg] PHYSICIAN NO [facility] 01-24-2025 07:30-0400 Heart rate 79 /min PHYSICIAN NO [facility] 01-24-2025 07:30-0400 Respiratory rate 18 /min PHYSICIAN NO [facility] 01-24-2025 07:30-0400 SaO2% (BldA) [Mass fraction] 98 % PHYSICIAN NO [facility] 01-24-2025 07:30-0400 Systolic blood pressure 118 mm[Hg] PHYSICIAN NO [facility] 01-23-2025 12:03-0400 Body height 160.02 cm PHYSICIAN NO [facility] 01-22-2025 17:32-0400 Body weight 82.55 kg PHYSICIAN NO [facility] 01-22-2025 12:18-0400 Body height 160.02 cm PHYSICIAN NO [facility] 01-22-2025 12:18-0400 Body temperature 98.7 [degF] PHYSICIAN NO [facility] 01-22-2025 12:18-0400 Body weight 83 kg PHYSICIAN NO [facility] 01-22-2025 12:18-0400 Diastolic blood pressure 70 mm[Hg] PHYSICIAN NO [facility] 01-22-2025 12:18-0400 Heart rate 82 /min PHYSICIAN NO [facility] 01-22-2025 12:18-0400 Respiratory rate 18 /min PHYSICIAN NO [facility] 01-22-2025 12:18-0400 SaO2% (BldA) [Mass fraction] 99 % PHYSICIAN NO [facility] 01-22-2025 12:18-0400 Systolic blood pressure 108 mm[Hg] PHYSICIAN NO [facility] 01-01-2025 07:30-0400 Body temperature 97.8 [degF] PHYSICIAN NO [facility] 01-01-2025 07:30-0400 Diastolic blood pressure 58 mm[Hg] PHYSICIAN NO [facility] 01-01-2025 07:30-0400 Heart rate 79 /min PHYSICIAN NO [facility] 01-01-2025 07:30-0400 Respiratory rate 16 /min PHYSICIAN NO [facility] 01-01-2025 07:30-0400 SaO2% (BldA) [Mass fraction] 98 % PHYSICIAN NO [facility] 01-01-2025 07:30-0400 Systolic blood pressure 100 mm[Hg] PHYSICIAN NO [facility] 12-31-2024 14:38-0400 Body height 160.02 cm PHYSICIAN NO [facility] 12-30-2024 08:14-0400 Body weight 77.38 kg PHYSICIAN NO [facility] 12-29-2024 20:51-0400 Body height 160.02 cm PHYSICIAN NO [facility] 12-29-2024 20:51-0400 Body temperature 98.4 [degF] PHYSICIAN NO [facility] 12-29-2024 20:51-0400 Body weight 77.2 kg PHYSICIAN NO [facility] 12-29-2024 20:51-0400 Diastolic blood pressure 61 mm[Hg] PHYSICIAN NO [facility] 12-29-2024 20:51-0400 Heart rate 97 /min PHYSICIAN NO [facility] 12-29-2024 20:51-0400 Respiratory rate 16 /min PHYSICIAN NO [facility] 12-29-2024 20:51-0400 SaO2% (BldA) [Mass fraction] 96 % PHYSICIAN NO [facility] 12-29-2024 20:51-0400 Systolic blood pressure 99 mm[Hg] PHYSICIAN NO [facility] 12-06-2024 07:30-0400 Body temperature 97.9 [degF] PHYSICIAN NO [facility] 12-06-2024 07:30-0400 Diastolic blood pressure 64 mm[Hg] PHYSICIAN NO [facility] 12-06-2024 07:30-0400 Heart rate 82 /min PHYSICIAN NO [facility] 12-06-2024 07:30-0400 Respiratory rate 16 /min PHYSICIAN NO [facility] 12-06-2024 07:30-0400 SaO2% (BldA) [Mass fraction] 100 % PHYSICIAN NO [facility] 12-06-2024 07:30-0400 Systolic blood pressure 119 mm[Hg] PHYSICIAN NO [facility] 12-04-2024 13:39-0400 Body height 160.02 cm PHYSICIAN NO [facility] 12-03-2024 23:01-0400 Body weight 69.58 kg PHYSICIAN NO [facility] 11-16-2024 07:30-0400 Body temperature 97.7 [degF] PHYSICIAN NO [facility] 11-16-2024 07:30-0400 Diastolic blood pressure 87 mm[Hg] PHYSICIAN NO [facility] 11-16-2024 07:30-0400 Heart rate 102 /min PHYSICIAN NO [facility] 11-16-2024 07:30-0400 Respiratory rate 15 /min PHYSICIAN NO [facility] 11-16-2024 07:30-0400 SaO2% (BldA) [Mass fraction] 99 % PHYSICIAN NO [facility] 11-16-2024 07:30-0400 Systolic blood pressure 122 mm[Hg] PHYSICIAN NO [facility] 11-15-2024 14:56-0400 Body height 160.02 cm PHYSICIAN NO [facility] 11-15-2024 00:35-0400 Body weight 68.1 kg PHYSICIAN NO [facility] 11-14-2024 23:16-0400 Diastolic blood pressure 70 mm[Hg] PHYSICIAN NO [facility] 11-14-2024 23:16-0400 Heart rate 68 /min PHYSICIAN NO [facility] 11-14-2024 23:16-0400 Respiratory rate 21 /min PHYSICIAN NO [facility] 11-14-2024 23:16-0400 SaO2% (BldA) [Mass fraction] 97 % PHYSICIAN NO [facility] 11-14-2024 23:16-0400 Systolic blood pressure 109 mm[Hg] PHYSICIAN NO [facility] 11-14-2024 21:38-0400 Body height 160.02 cm PHYSICIAN NO [facility] 11-14-2024 21:38-0400 Body temperature 98.5 [degF] PHYSICIAN NO [facility] 11-14-2024 21:38-0400 Body weight 68.1 kg PHYSICIAN NO [facility] 11-10-2024 07:30-0400 Body temperature 97.5 [degF] PHYSICIAN NO [facility] 11-10-2024 07:30-0400 Diastolic blood pressure 85 mm[Hg] PHYSICIAN NO [facility] 11-10-2024 07:30-0400 Heart rate 93 /min PHYSICIAN NO [facility] 11-10-2024 07:30-0400 Respiratory rate 16 /min PHYSICIAN NO [facility] 11-10-2024 07:30-0400 SaO2% (BldA) [Mass fraction] 99 % PHYSICIAN NO [facility] 11-10-2024 07:30-0400 Systolic blood pressure 127 mm[Hg] PHYSICIAN NO [facility] 11-07-2024 14:44-0400 Body height 160.02 cm PHYSICIAN NO [facility] 11-07-2024 03:45-0400 Body weight 65.7 kg PHYSICIAN NO [facility] 11-07-2024 01:45-0400 Body temperature 98.6 [degF] PHYSICIAN NO [facility] 11-07-2024 01:45-0400 Diastolic blood pressure 57 mm[Hg] PHYSICIAN NO [facility] 11-07-2024 01:45-0400 Heart rate 64 /min PHYSICIAN NO [facility] 11-07-2024 01:45-0400 Respiratory rate 17 /min PHYSICIAN NO [facility] 11-07-2024 01:45-0400 SaO2% (BldA) [Mass fraction] 98 % PHYSICIAN NO [facility] 11-07-2024 01:45-0400 Systolic blood pressure 101 mm[Hg] PHYSICIAN NO [facility] 11-06-2024 21:23-0400 Body height 160.02 cm PHYSICIAN NO [facility] 11-06-2024 21:23-0400 Body weight 65.7 kg PHYSICIAN NO [facility] 11-06-2024 15:52-0400 Body mass index (BMI) [Ratio] 23.76 kg/m2 Michael Gurrola MD Work Phone: [facility] 11-06-2024 15:52-0400 Body weight 65.77 kg Michael Gurrola MD Work Phone: [facility] 11-06-2024 15:52-0400 Diastolic blood pressure 64 mm[Hg] Michael Gurrola MD Work Phone: [facility] 11-06-2024 15:52-0400 Systolic blood pressure 110 mm[Hg] Michael Gurrola MD Work Phone: [facility] 09-11-2024 13:23-0400 Body mass index (BMI) [Ratio] 24.75 kg/m2 Michael Gurrola MD Work Phone: [facility] 09-11-2024 13:23-0400 Body weight 68.49 kg Michael Gurrola MD Work Phone: [facility] 09-11-2024 13:23-0400 Diastolic blood pressure 78 mm[Hg] Michael Gurrola MD Work Phone: [facility] 09-11-2024 13:23-0400 Systolic blood pressure 124 mm[Hg] Michael Gurrola MD Work Phone: [facility] 07-22-2024 12:36-0500 Body height 160.02 cm [facility] 07-22-2024 12:36-0500 Body mass index (BMI) [Ratio] 19.5 kg/m2 [facility] 07-22-2024 12:36-0500 Body temperature 97.9 [degF] [facility] 07-22-2024 12:36-0500 Body weight 50.12 kg [facility] 07-22-2024 12:36-0500 Diastolic blood pressure 71 mm[Hg] [facility] 07-22-2024 12:36-0500 Heart rate 76 /min [facility] 07-22-2024 12:36-0500 Respiratory rate 17 /min [facility] 07-22-2024 12:36-0500 SaO2% (BldA) [Mass fraction] 97 % [facility] 07-22-2024 12:36-0500 Systolic blood pressure 121 mm[Hg] [facility] 07-10-2024 14:08-0500 Body mass index (BMI) [Ratio] 25.56 kg/m2 Michael Gurrola MD Work Phone: [facility] 07-10-2024 14:08-0500 Body weight 70.76 kg Michael Gurrola MD Work Phone: [facility] 07-10-2024 14:08-0500 Diastolic blood pressure 78 mm[Hg] Michael Gurrola MD Work Phone: [facility] 07-10-2024 14:08-0500 Systolic blood pressure 118 mm[Hg] Michael Gurrola MD Work Phone: [facility] 04-16-2024 07:32-0400 Body temperature 97.39 [degF] Cristiano Singh MD Work Phone: [facility] [email or web address] 04-16-2024 07:32-0400 Diastolic blood pressure 63 mm[Hg] Cristiano Singh MD Work Phone: [facility] [email or web address] 04-16-2024 07:32-0400 Heart rate 67 /min Cristiano Singh MD Work Phone: [facility] [email or web address] 04-16-2024 07:32-0400 Respiratory rate 16 /min Cristiano Singh MD Work Phone: [facility] [email or web address] 04-16-2024 07:32-0400 SaO2% (BldA) [Mass fraction] 100 % Cristiano Singh MD Work Phone: [facility] [email or web address] 04-16-2024 07:32-0400 Systolic blood pressure 111 mm[Hg] Cristiano Singh MD Work Phone: [facility] [email or web address] 04-16-2024 03:28-0400 Body mass index (BMI) [Ratio] 28.27 kg/m2 Cristiano Singh MD Work Phone: [facility] [email or web address] 04-16-2024 03:28-0400 Body weight 72.4 kg Cristiano Singh MD Work Phone: [facility] [email or web address] 04-11-2024 06:20-0400 Body height 160 cm Cristiano Singh MD Work Phone: [facility] [email or web address] 04-09-2024 10:44-0400 Diastolic blood pressure 66 mm[Hg] Tyrone Benito DO Work Phone: [facility] [email or web address] 04-09-2024 10:44-0400 Systolic blood pressure 107 mm[Hg] Tyrone Benito DO Work Phone: [facility] [email or web address] 04-09-2024 10:42-0400 Body mass index (BMI) [Ratio] 27.1 kg/m2 Tyrone Benito DO Work Phone: [facility] [email or web address] 04-09-2024 10:42-0400 Body temperature 98.01 [degF] Tyrone Benito DO Work Phone: [facility] [email or web address] 04-09-2024 10:42-0400 Body weight 69.4 kg Tyrone Benito DO Work Phone: [facility] [email or web address] 04-09-2024 10:42-0400 Heart rate 92 /min Tyrone Benito DO Work Phone: [facility] [email or web address] 04-09-2024 10:42-0400 Respiratory rate 16 /min Tyrone Benito DO Work Phone: [facility] [email or web address] 04-09-2024 10:42-0400 SaO2% (BldA) [Mass fraction] 100 % Tyrone Benito DO Work Phone: [facility] [email or web address] 04-02-2024 14:15-0400 Diastolic blood pressure 49 mm[Hg] Tyrone Benito DO Work Phone: [facility] [email or web address] 04-02-2024 14:15-0400 SaO2% (BldA) [Mass fraction] 99 % Tyrone Benito DO Work Phone: [facility] [email or web address] 04-02-2024 14:15-0400 Systolic blood pressure 101 mm[Hg] Tyrone Benito DO Work Phone: [facility] [email or web address] 04-02-2024 13:30-0400 Heart rate 51 /min Tyrone Benito DO Work Phone: [facility] [email or web address] 04-02-2024 13:30-0400 Respiratory rate 16 /min Tyrone Benito DO Work Phone: [facility] [email or web address] 04-02-2024 09:13-0400 Body mass index (BMI) [Ratio] 27.28 kg/m2 Tyrone Mondragonis DO Work Phone: [facility] [email or web address] 04-02-2024 09:13-0400 Body temperature 97.9 [degF] Tyrone Benito DO Work Phone: [employer] 04-02-2024 09:13-0400 Body weight 69.85 kg Tyrone Benito DO Work Phone: [employer] 03-17-2024 12:14-0400 Diastolic blood pressure 84 mm[Hg] Prudence Wong MD Work Phone: [employer] 03-17-2024 12:14-0400 SaO2% (BldA) [Mass fraction] 100 % Prudence Wong MD Work Phone: [employer] 03-17-2024 12:14-0400 Systolic blood pressure 125 mm[Hg] Prudence Wong MD Work Phone: [employer] 03-17-2024 10:10-0400 Body temperature 98.1 [degF] Prudence Wong MD Work Phone: [employer] 03-17-2024 10:10-0400 Heart rate 102 /min Prudence Wong MD Work Phone: [employer] 03-17-2024 10:10-0400 Respiratory rate 16 /min Prudence Wong MD Work Phone: [employer] 02-15-2024 14:26-0400 Body height 160 cm [facility] 02-15-2024 14:26-0400 Body mass index (BMI) [Ratio] 28.54 kg/m2 [facility] 02-15-2024 14:26-0400 Body weight 73.07 kg [facility] 02-15-2024 14:26-0400 Diastolic blood pressure 70 mm[Hg] [facility] 02-15-2024 14:26-0400 Systolic blood pressure 128 mm[Hg] [facility] 02-07-2024 15:50-0400 Diastolic blood pressure 76 mm[Hg] Melida Huang APRN - [employer] Work Phone: [employer] 02-07-2024 15:50-0400 Heart rate 64 /min Melida Huang APRN - [facility] Work Phone: [facility] [employer] 02-07-2024 15:50-0400 SaO2% (BldA) [Mass fraction] 98 % Melida Huang APRN - [facility] Work Phone: [facility] [employer] 02-07-2024 15:50-0400 Systolic blood pressure 126 mm[Hg] Melida Huang APRN - [facility] Work Phone: [facility] [employer] 02-07-2024 10:55-0400 Body height 160 cm Melida Huang APRN [facility] Work Phone: [facility] [employer] 02-07-2024 10:55-0400 Body mass index (BMI) [Ratio] 28.34 kg/m2 Melida Huang APRN - [facility] Work Phone: [facility] [employer] 02-07-2024 10:55-0400 Body temperature 98.71 [degF] Melida Huang APRN - [facility] Work Phone: [facility] [employer] 02-07-2024 10:55-0400 Body weight 72.58 kg Melida Huang APRN [facility] Work Phone: [facility] [employer] 02-07-2024 10:55-0400 Respiratory rate 16 /min Melida Huang APRN [facility] Work Phone: [facility] [employer] 02-03-2024 20:38-0400 Body height 160 cm Jess Daigle DO Work Phone: [facility] [employer] 02-03-2024 20:38-0400 Body mass index (BMI) [Ratio] 28.7 kg/m2 Jess Daigle DO Work Phone: [employer] 02-03-2024 20:38-0400 Body temperature 98.1 [degF] Jess Daigle DO Work Phone: [facility] [employer] 02-03-2024 20:38-0400 Body weight 73.48 kg Jess Daigle DO Work Phone: [facility] [employer] 02-03-2024 20:38-0400 Diastolic blood pressure 70 mm[Hg] Jess Daigle DO Work Phone: [facility] [employer] 02-03-2024 20:38-0400 Heart rate 84 /min Jess Ballesterosbal DO Work Phone: [facility] [employer] 02-03-2024 20:38-0400 Respiratory rate 16 /min Jess Ballesterosbal DO Work Phone: [facility] [employer] 02-03-2024 20:38-0400 SaO2% (BldA) [Mass fraction] 99 % Jess Daigle DO Work Phone: [facility] [employer] 02-03-2024 20:38-0400 Systolic blood pressure 116 mm[Hg] Jess Daigle DO Work Phone: [facility] [employer] 01-22-2024 14:41-0400 Body mass index (BMI) [Ratio] 28.86 kg/m2 [address] 01-22-2024 14:41-0400 Body temperature 98.71 [degF] [address] 01-22-2024 14:41-0400 Body weight 73.[address] 01-22-2024 14:41-0400 Diastolic blood pressure 58 mm[Hg] [address] 01-22-2024 14:41-0400 Systolic blood pressure 102 mm[Hg] [address] 01-08-2024 14:52-0400 Heart rate 88 /min PHYSICIAN NO [facility] 01-08-2024 14:52-0400 Respiratory rate 16 /min PHYSICIAN NO [facility] 01-08-2024 14:52-0400 SaO2% (BldA) [Mass fraction] 97 % PHYSICIAN NO [facility] 01-08-2024 12:38-0400 Body height 160.02 cm PHYSICIAN NO [facility] 01-08-2024 12:38-0400 Body temperature 99.8 [degF] PHYSICIAN NO [facility] 01-08-2024 12:38-0400 Body weight 73 kg PHYSICIAN NO [facility] 01-08-2024 12:38-0400 Diastolic blood pressure 72 mm[Hg] PHYSICIAN NO [facility] 01-08-2024 12:38-0400 Systolic blood pressure 118 mm[Hg] PHYSICIAN NO [facility] 11-20-2023 16:30-0400 Diastolic blood pressure 65 mm[Hg] Mickie Radha La DO Work Phone: [facility] [employer] 11-20-2023 16:30-0400 Heart rate 64 /min Mickie Radha La DO Work Phone: [facility] [employer] 11-20-2023 16:30-0400 Respiratory rate 20 /min Mickie Radha La DO Work Phone: [facility] [employer] 11-20-2023 16:30-0400 SaO2% (BldA) [Mass fraction] 99 % Mickie Radha La DO Work Phone: [facility] [employer] 11-20-2023 16:30-0400 Systolic blood pressure 120 mm[Hg] Mickie Radha La DO Work Phone: [facility] [employer] 11-20-2023 11:58-0400 Body temperature 97.2 [degF] Mickie Radha La DO Work Phone: [facility] [employer] 11-20-2023 11:46-0400 Body height 160 cm Mickie Radha La DO Work Phone: [facility] [employer] 11-20-2023 11:46-0400 Body mass index (BMI) [Ratio] 30.01 kg/m2 Mickie Radha La DO Work Phone: [facility] [employer] 11-20-2023 11:46-0400 Body weight 76.84 kg Mickie La DO Work Phone: [facility] [employer] 08-15-2023 20:57-0500 Heart rate 90 /min Sage Andes DO Work Phone: [facility] [employer] 08-15-2023 20:57-0500 Respiratory rate 18 /min Sage Andes DO Work Phone: [facility] [employer] 08-15-2023 20:57-0500 SaO2% (BldA) [Mass fraction] 97 % Sage Andes DO Work Phone: [facility] [employer] 08-15-2023 20:42-0500 Diastolic blood pressure 50 mm[Hg] Sage Andes DO Work Phone: [facility] [employer] 08-15-2023 20:42-0500 Systolic blood pressure 108 mm[Hg] Sage Andes DO Work Phone: [facility] [employer] 08-15-2023 19:40-0500 Body height 160 cm Sage Andes DO Work Phone: [facility] [employer] 08-15-2023 19:40-0500 Body mass index (BMI) [Ratio] 30.11 kg/m2 Sage Andes DO Work Phone: [facility] [employer] 08-15-2023 19:40-0500 Body temperature 98.91 [degF] Sage Andes DO Work Phone: [facility] [employer] 08-15-2023 19:40-0500 Body weight 77.11 kg Sage Andes DO Work Phone: [facility] [employer] 07-25-2023 10:50-0500 Diastolic blood pressure 61 mm[Hg] Kisha Rangel MD Work Phone: [facility] [employer] 07-25-2023 10:50-0500 Heart rate 96 /min Kisha [facility]angel MD Work Phone: [facility] 07-25-2023 10:50-0500 Respiratory rate 18 /min Kisha Rangel MD Work Phone: [facility] 07-25-2023 10:50-0500 SaO2% (BldA) [Mass fraction] 97 % Kisha Rangel MD Work Phone: [facility] 07-25-2023 10:50-0500 Systolic blood pressure 104 mm[Hg] Kisha Rangel MD Work Phone: [facility] 07-25-2023 09:45-0500 Body temperature 98.01 [degF] Kisha [facility]angel MD Work Phone: [facility] 07-25-2023 08:21-0500 Body height 160 cm Kisha Rangel MD Work Phone: [facility] 07-25-2023 08:21-0500 Body mass index (BMI) [Ratio] 33.55 kg/m2 Kisha Rangel MD Work Phone: [facility] 07-25-2023 08:21-0500 Body weight 85.91 kg Kisha Rangel MD Work Phone: [facility] 02-27-2023 08:45-0400 Body temperature 98.2 [degF] PHYSICIAN NO [facility] 02-27-2023 08:45-0400 Diastolic blood pressure 83 mm[Hg] PHYSICIAN NO [facility] 02-27-2023 08:45-0400 Heart rate 75 /min PHYSICIAN NO [facility] 02-27-2023 08:45-0400 Respiratory rate 18 /min PHYSICIAN NO [facility] 02-27-2023 08:45-0400 SaO2% (BldA) [Mass fraction] 98 % PHYSICIAN NO [facility] 02-27-2023 08:45-0400 Systolic blood pressure 119 mm[Hg] PHYSICIAN NO [facility] 02-26-2023 20:35-0400 Body weight 92.98 kg PHYSICIAN NO [facility] 02-26-2023 17:40-0400 Body height 160.02 cm PHYSICIAN NO [facility] 02-25-2023 18:28-0400 Respiratory rate 18 /min PHYSICIAN NO [facility] 02-25-2023 18:20-0400 Diastolic blood pressure 50 mm[Hg] PHYSICIAN NO [facility] 02-25-2023 18:20-0400 Heart rate 82 /min PHYSICIAN NO [facility] 02-25-2023 18:20-0400 Systolic blood pressure 91 mm[Hg] PHYSICIAN NO [facility] 02-25-2023 16:00-0400 Body height 160.02 cm PHYSICIAN NO [facility] 02-25-2023 16:00-0400 Body temperature 96.4 [degF] PHYSICIAN NO [facility] 02-25-2023 16:00-0400 Body weight 92.98 kg PHYSICIAN NO [facility] 02-22-2023 17:00-0400 Respiratory rate 20 /min PHYSICIAN NO [facility] 02-22-2023 15:30-0400 SaO2% (BldA) [Mass fraction] 98 % PHYSICIAN NO [facility] 02-22-2023 15:06-0400 Body height 160.02 cm PHYSICIAN NO [facility] 02-22-2023 15:06-0400 Body weight 92.98 kg PHYSICIAN NO [facility] 02-22-2023 14:44-0400 Body temperature 97.7 [degF] PHYSICIAN NO [facility] 02-22-2023 14:42-0400 Diastolic blood pressure 73 mm[Hg] PHYSICIAN NO [facility] 02-22-2023 14:42-0400 Heart rate 104 /min PHYSICIAN NO [facility] 02-22-2023 14:42-0400 Systolic blood pressure 112 mm[Hg] PHYSICIAN NO [facility] 02-19-2023 14:04-0400 Respiratory rate 18 /min PHYSICIAN NO [facility] 02-19-2023 12:16-0400 Body temperature 97.2 [degF] PHYSICIAN NO [facility] 02-19-2023 11:36-0400 SaO2% (BldA) [Mass fraction] 97 % PHYSICIAN NO [facility] 02-19-2023 11:31-0400 Body height 160.02 cm PHYSICIAN NO [facility] 02-19-2023 11:31-0400 Body weight 92.98 kg PHYSICIAN NO [facility] 02-19-2023 11:28-0400 Diastolic blood pressure 74 mm[Hg] PHYSICIAN NO [facility] 02-19-2023 11:28-0400 Heart rate 110 /min PHYSICIAN NO [facility] 02-19-2023 11:28-0400 Systolic blood pressure 115 mm[Hg] PHYSICIAN NO [facility] 02-17-2023 19:23-0400 Respiratory rate 16 /min PHYSICIAN NO [facility] 02-17-2023 18:02-0400 Diastolic blood pressure 68 mm[Hg] PHYSICIAN NO [facility] 02-17-2023 18:02-0400 Heart rate 99 /min PHYSICIAN NO [facility] 02-17-2023 18:02-0400 Systolic blood pressure 108 mm[Hg] PHYSICIAN NO [facility] 02-17-2023 17:58-0400 Body height 160.02 cm PHYSICIAN NO [facility] 02-17-2023 17:58-0400 Body weight 92.98 kg PHYSICIAN NO [facility] 02-07-2023 17:30-0400 Respiratory rate 16 /min PHYSICIAN NO [facility] 02-07-2023 16:28-0400 SaO2% (BldA) [Mass fraction] 97 % PHYSICIAN NO [facility] 02-07-2023 16:25-0400 Body height 160.02 cm PHYSICIAN NO [facility] 02-07-2023 16:25-0400 Body weight 92.98 kg PHYSICIAN NO [facility] 02-07-2023 16:23-0400 Body temperature 97 [degF] PHYSICIAN NO [facility] 02-07-2023 16:23-0400 Diastolic blood pressure 72 mm[Hg] PHYSICIAN NO [facility] 02-07-2023 16:23-0400 Heart rate 94 /min PHYSICIAN NO [facility] 02-07-2023 16:23-0400 Systolic blood pressure 109 mm[Hg] PHYSICIAN NO [facility] 01-26-2023 23:47-0400 Respiratory rate 16 /min PHYSICIAN NO [facility] 01-26-2023 22:37-0400 Body height 160.02 cm PHYSICIAN NO [facility] 01-26-2023 22:37-0400 Body weight 93.44 kg PHYSICIAN NO [facility] 01-26-2023 22:37-0400 Diastolic blood pressure 51 mm[Hg] PHYSICIAN NO [facility] 01-26-2023 22:37-0400 Heart rate 91 /min PHYSICIAN NO [facility] 01-26-2023 22:37-0400 Systolic blood pressure 100 mm[Hg] PHYSICIAN NO [facility] 01-26-2023 22:36-0400 SaO2% (BldA) [Mass fraction] 97 % PHYSICIAN NO [facility] 01-26-2023 22:35-0400 Body temperature 96.8 [degF] PHYSICIAN NO [facility] 01-24-2023 16:44-0400 Respiratory rate 16 /min PHYSICIAN NO [facility] 01-24-2023 16:19-0400 Body temperature 97.5 [degF] PHYSICIAN NO [facility] 01-24-2023 16:19-0400 Diastolic blood pressure 56 mm[Hg] PHYSICIAN NO [facility] 01-24-2023 16:19-0400 Heart rate 95 /min PHYSICIAN NO [facility] 01-24-2023 16:19-0400 SaO2% (BldA) [Mass fraction] 98 % PHYSICIAN NO [facility] 01-24-2023 16:19-0400 Systolic blood pressure 99 mm[Hg] PHYSICIAN NO [facility] 01-24-2023 15:36-0400 Body height 160.02 cm PHYSICIAN NO [facility] 01-24-2023 15:36-0400 Body weight 93.44 kg PHYSICIAN NO [facility] 01-14-2023 13:12-0400 Diastolic blood pressure 62 mm[Hg] PHYSICIAN NO [facility] 01-14-2023 13:12-0400 Heart rate 82 /min PHYSICIAN NO [facility] 01-14-2023 13:12-0400 Respiratory rate 16 /min PHYSICIAN NO [facility] 01-14-2023 13:12-0400 Systolic blood pressure 109 mm[Hg] PHYSICIAN NO [facility] 01-14-2023 10:17-0400 Body height 160.02 cm PHYSICIAN NO [facility] 01-14-2023 10:17-0400 Body weight 92.53 kg PHYSICIAN NO [facility] 01-14-2023 10:15-0400 Body temperature 97.2 [degF] PHYSICIAN NO [facility] 01-14-2023 10:15-0400 SaO2% (BldA) [Mass fraction] 99 % PHYSICIAN NO [facility] 12-08-2022 13:30-0400 Respiratory rate 16 /min PHYSICIAN NO [facility] 12-08-2022 13:24-0400 Diastolic blood pressure 66 mm[Hg] PHYSICIAN NO [facility] 12-08-2022 13:24-0400 Heart rate 85 /min PHYSICIAN NO [facility] 12-08-2022 13:24-0400 Systolic blood pressure 118 mm[Hg] PHYSICIAN NO [facility] 12-08-2022 11:21-0400 Body height 152.4 cm PHYSICIAN NO [facility] 12-08-2022 11:21-0400 Body weight 92.07 kg PHYSICIAN NO [facility] 12-08-2022 11:09-0400 Body temperature 97.3 [degF] PHYSICIAN NO [facility] 11-20-2022 14:48-0400 Body temperature 97.5 [degF] PHYSICIAN NO [facility] 11-20-2022 14:48-0400 Diastolic blood pressure 65 mm[Hg] PHYSICIAN NO [facility] 11-20-2022 14:48-0400 Heart rate 85 /min PHYSICIAN NO [facility] 11-20-2022 14:48-0400 Respiratory rate 16 /min PHYSICIAN NO [facility] 11-20-2022 14:48-0400 SaO2% (BldA) [Mass fraction] 98 % PHYSICIAN NO [facility] 11-20-2022 14:48-0400 Systolic blood pressure 120 mm[Hg] PHYSICIAN NO [facility] 11-20-2022 12:40-0400 Body height 165.1 cm PHYSICIAN NO [facility] 11-20-2022 12:40-0400 Body weight 90.71 kg PHYSICIAN NO [facility] 11-03-2022 11:30-0400 Respiratory rate 18 /min PHYSICIAN NO [facility] 11-03-2022 09:54-0400 Diastolic blood pressure 75 mm[Hg] PHYSICIAN NO [facility] 11-03-2022 09:54-0400 Heart rate 83 /min PHYSICIAN NO [facility] 11-03-2022 09:54-0400 Systolic blood pressure 131 mm[Hg] PHYSICIAN NO [facility] 11-03-2022 09:51-0400 SaO2% (BldA) [Mass fraction] 98 % PHYSICIAN NO [facility] 11-03-2022 09:35-0400 Body temperature 97.7 [degF] PHYSICIAN NO [facility] 11-03-2022 09:25-0400 Body height 152.4 cm PHYSICIAN NO [facility] 11-03-2022 09:25-0400 Body weight 93.44 kg PHYSICIAN NO [facility] 04-26-2022 10:45-0500 Body height 162.56 cm Denzel Thomas Other [employer] Other 04-26-2022 10:45-0500 Body mass index (BMI) [Ratio] 34.84 kg/m2 Denzel Thomas Other [employer] Other 04-26-2022 10:45-0500 Body weight 92.08 kg Denzel Thomas Other [employer] Other 04-26-2022 10:45-0500 Diastolic blood pressure 86 mm[Hg] Denzel Thomas Other [employer] Other 04-26-2022 10:45-0500 Systolic blood pressure 123 mm[Hg] Denzel Thomas Other [employer] Other Encounters Encounter Date Encounter Type Care Provider Facility Start: 04-04-2025 End: 04-04-2025 Emergency department patient visit PHYSICIAN NO [facility] -Emergency Room Work Phone: Start: 03-26-2025 End: 03-26-2025 Emergency department patient visit Goyo Epps Facility:[facility] Start: 03-25-2025 End: 03-25-2025 External Result Encounter Michael Gurrola MD Work Phone: [facility] External Department Unsolicited Start: 03-25-2025 End: 03-25-2025 External Result Encounter Michael Gurrola MD Work Phone: [facility] External Department Unsolicited Start: 03-23-2025 End: 03-25-2025 Evaluation and management of inpatient MICHAEL [facility] Work Phone: Start: 03-19-2025 End: 03-20-2025 Evaluation and management of inpatient MICHA[facility] Work Phone: Start: 03-18-2025 Registered Recurring Ramone PINTO [facility] Start: 02-24-2025 Registered Recurring Ramone PINTO [employer] Start: 02-24-2025 End: 02-24-2025 ambulatory PHYSICIAN NO [facility] Work Phone: Start: 02-24-2025 End: 02-24-2025 Patient encounter procedure Fe Isabel [employer] [facility] Work Phone: Start: 02-13-2025 Registered Recurring Ramone PINTO [employer] Start: 02-08-2025 End: 02-08-2025 Departed Referred Fe Isabel [employer] [facility] Start: 02-08-2025 End: 02-08-2025 ambulatory PHYSICIAN NO [facility] Work Phone: Start: 02-08-2025 End: 02-08-2025 Patient encounter procedure Fe Isabel [employer] [facility] Work Phone: Start: 01-27-2025 Registered Recurring Ramone PINTO Credible Start: 01-22-2025 End: 01-24-2025 Evaluation and management of inpatient Dashawn [facility] Work Phone: Start: 01-22-2025 Non-patient / Non-visit Dashawn sánchez MD -[facility] Work Phone: Start: 01-08-2025 Registered Recurring Ramone PINTO Credible Start: 12-29-2024 End: 01-01-2025 Evaluation and management of inpatient Kit [facility] Work Phone: Start: 12-29-2024 Non-patient / [facility]: Start: 12-03-2024 End: 12-06-2024 Evaluation and management of inpatient PHYSICIAN NO [facility] Facility:[facility] Start: 12-03-2024 Non-patient / [facility] Work [facility]: Start: 11-23-2024 End: 11-23-2024 ambulatory PHYSICIAN NO [facility] Work Phone: Start: 11-23-2024 End: 11-23-2024 Departed Referred PHYSICIAN NO [facility] Start: 11-15-2024 Non-patient / Non-visit PHYSICIAN NO [facility] Work Phone: Start: 11-14-2024 End: 11-16-2024 Evaluation and management of inpatient PHYSICIAN NO [facility] Work Phone: Start: 11-07-2024 Non-patient / Non-visit PHYSICIAN NO [facility] Work Phone: Start: 11-07-2024 End: 11-10-2024 Evaluation and management of inpatient PHYSICIAN NO [facility] Work Phone: Start: 11-06-2024 End: 11-06-2024 Office outpatient visit 25 minutes Michael Gurrola MD Work Phone: [facility] Comment on above: Severe episode of re current major depressive disorder, without psychotic features (HCC) (CMS/HCC) (Primary Dx) Start: 11-06-2024 End: 11-06-2024 ambulatory MICHAEL GURROLA Not Available Start: 11-06-2024 End: 11-06-2024 Bamboo flowskeily Gurrola MD Work Phone: [facility] Start: 11-06-2024 End: 11-06-2024 Oksanao andreia Gurrola MD Work Phone: [facility] Start: 09-17-2024 End: 09-17-2024 Oksanao andreia Gurrola MD Work Phone: [facility] Start: 09-17-2024 End: 09-17-2024 Bamboo flowsheet Michael Gurrola MD Work Phone: [facility] Start: 09-17-2024 End: 09-17-2024 ambulatory MICHAEL GURROLA Not Available Start: 09-17-2024 End: 09-17-2024 Patient encounter procedure Michael Gurrola MD Work Phone: [facility] Comment on above: Abdominal pain in fe male (Primary Dx); Pelvic pain in female Start: 09-16-2024 End: 09-16-2024 Emergency department patient visit NO PCP NO PCP [facility] Start: 09-12-2024 End: 09-12-2024 ambulatory [...] encounter Michael Gurrola MD Work Phone: [facility] Start: 07-22-2024 End: 07-22-2024 ambulatory [facility] Work Phone: Start: 07-22-2024 End: 07-22-2024 Patient encounter procedure [facility] Work Phone: Start: 07-10-2024 End: 07-10-2024 Office outpatient visit 25 minutes Michael Gurrola MD Work Phone: [facility] Comment on above: Right lower quadrant pain (Primary Dx); Pelvic pain in female; Right ovarian cyst Start: 07-10-2024 End: 07-10-2024 Bamboo flowsheet Michael Gurrola MD Work Phone: [facility] Start: 07-10-2024 End: 07-10-2024 Bamboo flowsheet Michael Gurrola MD Work Phone: [facility] Start: 07-10-2024 End: 07-10-2024 ambulatory MICHAEL GURROLA Not Available Start: 04-10-2024 End: 04-16-2024 Evaluation and management of inpatient Cristiano Singh MD Work Phone: [facility] Comment on above: Pneumoperitoneum (Pr imary Dx); Perforated diverticulum; Peritoneal cavity free air Start: 04-09-2024 End: 04-09-2024 Emergency department patient visit Tyrone Benito DO Work Phone: [facility] ED Comment on above: Right ovarian cyst ( Primary Dx) Start: 04-02-2024 End: 04-02-2024 Emergency department patient visit Tyrone Benito DO Work Phone: [facility] ED Comment on above: Right ovarian cyst ( Primary Dx) Start: 03-17-2024 End: 03-17-2024 Emergency department patient visit Prudence Wong MD Work Phone: [facility] ED Start: 03-10-2024 End: 03-10-2024 Emergency department patient visit MELIDA HUANG [facility] Start: 02-15-2024 End: 02-15-2024 Office outpatient visit 15 minutes [facility] [employer] Specialist Resident [facility] for [facility] - Women's Services Comment on above: Pelvic pain (Primary Dx); Routine general medical examination at a health care facility Start: 02-15-2024 End: 02-15-2024 Patient encounter status [facility] Resident Zan Mathew Work Phone: Start: 02-07-2024 End: 02-08-2024 Emergency department patient visit MARNIE ROSE [facility] Start: 02-07-2024 End: 02-08-2024 Emergency department patient visit NO PCP NO PCP [facility] Start: 02-07-2024 End: 02-07-2024 Emergency department patient visit MELIDA BAINSSLER [facility] ED Comment on above: Abdominal pain, righ t lower quadrant (Primary Dx); Pelvic pain Start: 02-06-2024 End: 02-06-2024 ambulatory MICKIE GARCIA [facility] Start: 02-06-2024 End: 02-06-2024 Subsequent hospital visit by physician Melida Huang [employer] - [employer] Work Phone: [facility] Laboratory Comment on above: Pelvic pain Start: 02-05-2024 End: 02-05-2024 Emergency department patient visit ALEX COWAN [facility] Start: 02-03-2024 End: 02-04-2024 Emergency department patient visit Jess Daigle Work Phone: [facility] ED Comment on above: Right ovarian cyst ( Primary Dx) Start: 01-22-2024 End: 01-22-2024 Office outpatient new 30 minutes [facility]'s [facility] Comment on above: Pelvic abscess in fe male (Primary Dx); Change or removal of drains Start: 01-22-2024 End: 01-22-2024 [facility] Start: 01-19-2024 End: 01-19-[address] [facility] Services Work Phone: [facility] Start: 01-15-2024 End: 01-15-2024 ambulatory [facility] Start: 01-14-2024 End: 01-14-2024 [facility] Comment on above: Pain; Weakness - Gen eralized Start: 01-14-2024 ambulatory [facility] Kath[facility] Start: 01-13-2024 End: 01-17-2024 Evaluation and management of inpatient [facility] Start: 01-13-2024 Emergency department patient visit DIVINE [facility] Start: 01-13-2024 End: 01-13-2024 Telephone encounter [facility]org[facility] Comment on above: Medication Request Start: 01-13-2024 End: 01-13-2024 Emergency department patient visit DIVINE [facility] Start: 01-09-2024 End: 01-09-2024 ambulatory MICHAEL GURROLA Not Available Start: 01-08-2024 End: 01-08-2024 Emergency department patient visit PHYSICIAN MIHAI ANDRADE [facility] Work Phone: Start: 01-04-2024 End: 01-04-2024 Telephone encounter Lupe Claros [facility] Women's Services Start: 12-18-2023 End: 12-18-2023 Emergency department patient visit None Provider Facility:[facility] Start: 11-28-2023 End: 11-28-2023 ambulatory [facility] Start: 11-26-2023 End: 11-27-2023 Emergency department patient visit SHEREEN KRISTAL [facility] Start: 11-20-2023 End: 11-20-2023 ambulatory [facility] Start: 11-20-2023 End: 11-20-2023 Subsequent hospital visit by physician Mickie Garcia [place] DO Work Phone: [facility] OR Comment on above: Postoperative pain ( Primary Dx); Menorrhagia with regular cycle; Pelvic pain; Adenomyosis; Pelvic congestion syndrome Start: 10-18-2023 End: 10-18-2023 ambulatory Juan Santillan Facility:[facility] Start: 08-15-2023 End: 08-15-2023 Emergency department patient visit Sage Funes DO Work Phone: [facility] ED Comment on above: Viral upper respirat ory tract infection (Primary Dx) Start: 07-25-2023 End: 07-25-2023 ambulatory MELIDA HUANG [facility] Start: 07-25-2023 End: 07-25-2023 Subsequent hospital visit by physician Kisha Rangel MD Work Phone: [facility] Comment on above: Chronic GERD; Diarrhea, unspecified type; Gas pain Start: 06-09-2023 End: 06-09-2023 Emergency department patient visit None Provider Facility:[facility] Start: 06-04-2023 End: 06-04-2023 ambulatory None Provider Facility:[facility] Start: 05-05-2023 End: 05-05-2023 ambulatory PHYSICIAN NO [facility] Work Phone: Start: 05-05-2023 End: 05-05-2023 Departed Referred PHYSICIAN NO [facility] [place] Work Phone: Start: 04-15-2023 End: 04-16-2023 Emergency department patient visit None Provider Facility:[facility] Start: 02-26-2023 End: 02-27-2023 Evaluation and management of inpatient PHYSICIAN NO [facility] [place] Work Phone: Start: 02-25-2023 End: 02-25-2023 ambulatory PHYSICIAN NO [facility] Work Phone: Start: 02-25-2023 End: 02-25-2023 Patient encounter procedure PHYSICIAN NO [facility] Labor - O/P Start: 02-22-2023 End: 02-22-2023 ambulatory PHYSICIAN NO [facility] Work Phone: Start: 02-22-2023 End: 02-22-2023 Patient encounter procedure PHYSICIAN NO [facility] Labor - O/P Start: 02-19-2023 End: 02-19-2023 ambulatory PHYSICIAN NO [facility] Work Phone: Start: 02-19-2023 End: 02-19-2023 Patient encounter procedure PHYSICIAN NO [facility] Labor - O/P Start: 02-17-2023 End: 02-17-2023 ambulatory PHYSICIAN NO [facility] Work Phone: Start: 02-17-2023 End: 02-17-2023 Patient encounter procedure PHYSICIAN NO [facility] Labor - O/P Start: 02-16-2023 End: 02-16-2023 Departed Referred PHYSICIAN NO [facility] [place] Work Phone: Start: 02-07-2023 End: 02-07-2023 Patient encounter procedure PHYSICIAN NO [facility] Labor - O/P Start: 01-26-2023 End: 01-26-2023 ambulatory PHYSICIAN NO [facility] Work Phone: Start: 01-26-2023 End: 01-26-2023 Patient encounter procedure PHYSICIAN NO [facility] Labor - O/P Start: 01-24-2023 End: 01-24-2023 ambulatory PHYSICIAN NO [facility] Work Phone: Start: 01-24-2023 End: 01-24-2023 Patient encounter procedure PHYSICIAN NO [facility] Labor - O/P Start: 01-16-2023 End: 01-16-2023 ambulatory None Provider Facility:[facility] Start: 01-14-2023 End: 01-14-2023 ambulatory PHYSICIAN NO [facility] Work Phone: Start: 01-14-2023 End: 01-14-2023 Patient encounter procedure PHYSICIAN NO [facility] Labor - O/P Start: 01-11-2023 End: 01-11-2023 Emergency department patient visit Anjel Yates Facility:[facility] Start: 01-05-2023 End: 01-05-2023 ambulatory None Provider Facility:[facility] Start: 12-08-2022 End: 12-08-2022 Patient encounter procedure PHYSICIAN NO [facility] Labor - O/P Start: 11-20-2022 End: 11-20-2022 ambulatory PHYSICIAN NO [facility] Work Phone: Start: 11-20-2022 End: 11-20-2022 Patient encounter procedure PHYSICIAN NO [facility] Labor - O/P Start: 11-03-2022 End: 11-03-2022 Patient encounter procedure PHYSICIAN NO [facility] Labor - O/P Start: 07-21-2022 End: 07-21-2022 ambulatory Denzel Delatorrey Other [employer] Other Start: 07-21-2022 Telephone encounter Denzel Thomas [facility] Start: 07-20-2022 End: 07-20-2022 ambulatory Denzel Delatorrey Other [employer] Other Start: 07-20-2022 Telephone encounter Denzel Thomas [facility] Start: 07-05-2022 End: 07-05-2022 ambulatory Denzel Delatorrey Other [employer] Other Start: 07-05-2022 Telephone encounter Denzel Delatorrey [facility] Start: 06-30-2022 End: 06-30-2022 ambulatory Denzel Delatorrey Other [employer] Other Start: 06-30-2022 Telephone encounter Denzel Thomas [facility] Start: 06-14-2022 End: 06-14-2022 ambulatory Denzel Delatorrey Other [employer] Other Start: 06-14-2022 Telephone encounter Denzel Delatorrey [facility] Start: 05-30-2022 End: 05-30-2022 ambulatory Denzel Delatorrey Other [employer] Other Start: 05-30-2022 Telephone encounter Denzel Thomas [facility] Start: 04-26-2022 End: 04-26-2022 ambulatory Denzel Thomas Other [employer] Other Start: 04-26-2022 [facility] visit new patient Denzel Thomas [facility] Start: 03-21-2022 End: 03-21-2022 ambulatory Hernan Salas Other [employer] Other Start: 03-21-2022 Telephone encounter Hernan Calvo ck [facility] Procedures Date Procedure Procedure Detail Performing Clinician Start: 03-26-2025 Computed tomography of abdomen and pelvis with contrast PHYSICIAN NO FAMILY Start: 03-25-2025 Complete blood count with white cell differential, automated Michael Gurrola MD Work Phone: Start: 03-24-2025 Removal of ectopic fetus PHYSICIAN NO FAMILY Start: 02-08-2025 COVID Antigen (POC) PHY SICIAN [...] complete auto&auto difrntl wbc Aubrie L Isaac [employer] - [employer] Work Phone: Start: 04-14-2024 Radiologic exam abdo men 1 view Nicolette Wyman MD Work Phone: Start: 04-14-2024 Assay of magnesium Tate n L Isaac [employer] - [employer] Work Phone: Start: 04-13-2024 Radiologic exam abdo men 1 view Nicolette Wyman MD Work Phone: Start: 04-13-2024 Assay of magnesium Tate n L Isaac [employer]ENT - [employer] Work Phone: Start: 04-12-2024 Assay of magnesium Tate Gray [employer] - [employer] Work Phone: Start: 04-11-2024 End: 04-12-2024 Rhythm ecg 1-3 leads w/interpretation & report Unknown Provider Result Start: 04-11-2024 Blood count complete auto&auto difrntl wbc Aubrie Gray [employer] - [employer] Work Phone: Start: 04-11-2024 SURGICAL PATHOLOGY REPORT Nicolette Wyman MD Work Phone: Start: 04-10-2024 Cul prsmptv pthgnc o rganism scrn w/colony estimj Cristiano Singh MD Work Phone: Start: 04-10-2024 End: 04-11-2024 LAPAROTOMY EXPLORATORY Cristiano Singh MD Work Phone: Start: 04-10-2024 Blood typing serologic abo Cristiano Singh MD Work Phone: Start: 04-10-2024 Assay of lactate Juanis Amadeo Palencia PA-C Work Phone: Start: 04-10-2024 Ct abdomen & pelvis w/contrast material Juanis Palencia PA-C Work Phone: Start: 04-10-2024 Us transvaginal Juanis Palencia PA-C Work Phone: Start: 04-10-2024 Ecg routine ecg w/le ast 12 lds i&r only Juanis Amadeo Palencia PA-C Work Phone: Start: 04-10-2024 Basic metabolic pane l calcium total Juanis Amadeo Palencia PA-C Work Phone: Start: 04-10-2024 Urinalysis microscopic only Juanis Amadeo Palencia PA-C Work Phone: Start: 04-10-2024 Urnls dip stick/tabl et rgnt auto w/o microscopy Juanis Mendez Palencia PA-C Work Phone: Start: 04-09-2024 Us transvaginal Rebecca Benito DO Work Phone: Start: 04-09-2024 Urinalysis microscopic only Tyrone R Thong DO Work Phone: Start: 04-09-2024 Urnls dip stick/tabl et rgnt auto w/o microscopy Tyrone R Thong DO Work Phone: Start: 04-09-2024 Basic metabolic pane l calcium total Tyrone R Thong DO Work Phone: Start: 04-02-2024 Ct abdomen & pelvis w/contrast material Tyrone R Thong DO Work Phone: Start: 04-02-2024 Us transvaginal Rebecca ana laura R Thong DO Work Phone: Start: 04-02-2024 Comprehensive metabo lic panel Tyrone R Thong DO Work Phone: Start: 04-02-2024 Urinalysis microscopic only Tyrone R Thong DO Work Phone: Start: 04-02-2024 Urnls dip stick/tabl et rgnt auto w/o microscopy Tyrone R Thong DO Work Phone: Start: 03-17-2024 Ct abdomen & pelvis w/contrast material Prudence Wong MD Work Phone: Start: 03-17-2024 Urinalysis microscopic only Prudence Wong MD Work Phone: Start: 03-17-2024 Urnls dip stick/tabl et rgnt auto w/o microscopy Prudence Wong MD Work Phone: Start: 03-17-2024 Comprehensive metabo lic panel Prudence Wong MD Work Phone: Start: 02-07-2024 Ct abdomen & pelvis w/contrast material Maame Marshall [employer] - [employer] Work Phone: Start: 02-07-2024 Urinalysis microscopic only [...] Adult depression scr eening assessment Lupe Claros A Start: 05-19-2020 Microscopic observat ion [Identifier] in Cervix by Cyto stain Lupe Claros [facility] Plan of Treatment Date Care Activity Detail Author Start: 02-27-2033 DTaP,Tdap and Td Vaccines (9 - Td or Tdap) DTaP,Tdap and Td Vaccines (9 - Td or Tdap) [facility] Start: 02-27-2033 DTaP/Tdap/Td vaccine (9 - Td or Tdap) DTaP/Tdap/Td vaccine (9 - Td or Tdap) [facility] Start: 12-09-2031 DTaP,Tdap and Td Vaccines (8 - Td or Tdap) DTaP,Tdap and Td Vaccines (8 - Td or Tdap) [facility] Start: 04-15-2025 End: 04-15-2025 Patient encounter procedure 04/15/2025 11:30 AM EDT Office Visit MARIE VILLALOBOS [address] [place] [phone] Michael Gurrola MD [address] [place] [address] MARIE VILLALOBOS Start: 04-04-2025 CT of abdomen and pelvis without contrast CT abdomen pelvis wo con [facility] Start: 04-04-2025 Hepatic function panel [facility] Start: 04-04-[address] [facility] Start: 03-25-[address] [facility] Start: 03-24-2025 End: 03-24-2025 Hospital admission [facility] Start: 03-23-2025 Release Omentum, Percutaneous Endoscopic Approach Release Omentum, Percutaneous Endoscopic Approach [facility] Start: 03-23-2025 Resection of Right Ovary, Percutaneous Endoscopic Approach Resection of Right Ovary, Percutaneous Endoscopic Approach [facility] Start: 03-20-[address] [facility] Start: 03-20-2025 Hospital admission [facility] Start: 02-17-2025 Influenza vaccination [facility] Start: 02-14-2025 Adult BMI Screening Adult BMI Screening [facility] Start: 02-14-2025 Tobacco Screening Tobacco Screening [facility] Start: 02-08-2025 Urine culture [facility] Start: 02-08-2025 Bacteria identified in Urine by Culture Urine Culture [facility] Start: 01-24-[address] [facility] Start: 01-23-[address] [facility] Start: 01-22-2025 Hospital admission [facility] Start: 01-22-[address] [facility] Start: 01-21-2025 Adult BMI Screening Adult BMI Screening [facility] Start: 01-21-2025 Tobacco Screening Tobacco Screening [facility] Start: 01-16-2025 Adult BMI Screening Adult BMI Screening [facility] Start: 01-14-2025 Tobacco Screening Tobacco Screening [facility] Start: 01-12-2025 Adult BMI Screening Adult BMI Screening [facility] Start: 01-12-2025 Tobacco Screening Tobacco Screening [facility] Start: 01-01-[address] [facility] Start: 12-30-2024 Hospital admission [facility] Start: 12-06-[address] [facility] Start: 12-03-2024 Hospital admission [facility] Start: 11-23-2024 Urine culture [facility] Start: 11-23-2024 Bacteria identified in Urine by Culture Urine Culture [facility] Start: 11-16-[address] [facility] Start: 11-15-2024 Hospital admission [facility] Start: 11-15-[address] [facility] Start: 11-10-[address] [facility] Start: 11-07-2024 Referral to Media Clerk [facility] Start: 11-07-2024 Hospital admission [facility] Start: 11-06-2024 End: 11-06-2024 Patient encounter procedure 11/06/2024 4:00 PM EDT Office Visit [facility] [address] [place] [phone] Michael Gurrola MD [address] [place], [place] [id number] Arrived [facility] Comment on above: Arrived Start: 10-30-2024 Depression Monitoring Depression Monitoring [facility] Start: 09-17-2024 End: 09-17-2024 Patient encounter procedure 09/17/2024 4:15 PM EDT Office Visit [facility] [address] [place] [address] Michael Gurrola MD [address] [place] [address] [facility] Start: 09-17-2024 End: 09-17-2024 Professional / ancillary services management 09/17/2024 3:00 PM EDT Ancillary Procedure [facility] [address] [place] [address] [facility] Start: 09-17-2024 End: 09-17-2024 Patient encounter procedure 09/17/2024 11:45 AM EDT Office Visit [facility] [address] [place] [phone] Michael Gurrola MD [address] [place] [address] [facility] Start: 09-11-2024 End: 09-11-2024 Patient encounter procedure 09/11/2024 1:30 PM EDT Office Visit [facility] [address] [place] [phone] Michael Gurrola MD [address] [place] [address] [facility] Comment on above: Arrived Start: 08-01-2024 End: 08-01-2024 Patient encounter procedure 08/01/2024 1:45 PM EST Office Visit [facility] [address] [place] [phone] Michael Gurrola MD [address] [place] [address] [facility] Start: 08-01-2024 End: 08-01-2024 Professional / ancillary services management 08/01/2024 1:00 PM EST Ancillary Procedure [facility] [address] [place] [address] [facility] Start: 07-19-2024 Depression Monitoring Depression Monitoring [facility] Start: 07-10-2024 End: 07-10-2024 Patient encounter procedure 07/10/2024 2:30 PM EST Office Visit [facility] [address] [place] [address] Michael Gurrola MD [address] [place] [address] Pelvic pain in female; Chronic low back pain without sciatica, unspecified back pain laterality [facility] Comment on above: Pelvic pain in female; Chronic low back pain without sciatica, unspecified back pain laterality Start: 06-04-2024 End: 06-04-2024 Patient encounter procedure 06/04/2024 11:30 AM EST Office Visit [facility] [address] [place] [place] [phone] Asael Tapia, [employer] SUPER[employer] [address] [place] [address] [facility] Start: 05-29-2024 End: 05-29-2024 Patient encounter procedure 05/29/2024 2:00 PM EST Office Visit [facility] OBSTETRICS & GYNECOLOGY [address] [place] [address] Nj Bowser MD [address] [place] [address] [address] [place] [address] follow up from surgery 04/10/24 [facility] OBSTETRICS & GYNECOLOGY [facility] Comment on above: follow up from surgery 04/10/24 Start: 04-23-2024 End: 04-23-2024 Patient encounter procedure 04/23/2024 4:00 PM EST Office Visit [facility] GENERAL SURGERY Part [address] [place] [id number] Mary Ellen Soriano, DO [address] [place] [address] Post op (04/10)-ex lap, [facility] GENERAL SURGERY Part [facility] Comment on above: Post op (04/10)-ex lapsabino Start: 03-22-2024 End: 03-22-2024 Patient encounter procedure 03/22/2024 1:30 PM EDT Office Visit [facility] [address] [place] [phone] [facility] Start: 02-20-2024 End: 02-20-2024 Patient encounter procedure 02/20/2024 1:00 PM EDT Office Visit [facility] OBSTETRICS & GYNECOLOGY [address] [place] [address] Mickie Barrientos DO [address] [place] [address] P/O follow up infection [facility] OBSTETRICS & GYNECOLOGY [facility] Comment on above: P/O follow up infection Start: 02-18-2024 COVID-19 Vaccine ( season) COVID-19 Vaccine ( season) [facility] Start: 02-18-2024 Influenza vaccination [facility] Start: 02-06-2024 End: 02-06-2024 Patient encounter procedure 02/06/2024 4:30 PM EDT Office Visit [facility] Obstetrics & Gynecology [address] [facility], [address] [place] [address] Esther Burrell PA-C [address] [place] [address] F/U from admission to [facility]etric[facility]ne[facility] Comment on above: F/U from admission to [facility] Start: 01-18-2024 Influenza vaccination [facility] Start: 01-08-[address] [facility] Start: 01-08-2024 Bacteria identified in Blood by Culture [facility] Start: 01-08-2024 Genital Culture Genital Culture [facility] Start: 01-05-2024 End: 01-05-2024 Patient encounter procedure 01/05/2024 10:00 AM EDT Office Visit [facility] Certified Nurse [facility] [address] [phone] [facility] Certified Nurse [facility] Start: 12-26-2023 End: 12-26-2023 Patient encounter procedure 12/26/2023 11:45 AM EDT Office Visit [facility] OBSTETRICS & GYNECOLOGY [address] [place] [address] Mickie Barrientos DO [address] [place] [address] 6 wk post-op [facility] 09/12 [facility] OBSTETRICS GYNECOLOGY [facility] Comment on above: 6 wk post-op [facility], [facility] Start: 12-06-2023 End: 12-06-2023 Patient encounter procedure 12/06/2023 11:30 AM EDT Office Visit [facility] OBSTETRICS GYNECOLOGY [address] [place] [address] Esther Burrell PA-C [address] [place] [address] 2 wk post-op [facility] 09/12 [facility] OBSTETRICS GYNECOLOGY 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 / discuss Hyst / Kp Pt [facility] OBSTETRICS [facility] Comment on above: 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 / discuss Hyst / Kp Pt Start: 08-29-2023 End: 08-29-2023 Professional / ancillary services management 08/29/2023 11:00 AM EDT Ancillary Procedure [facility] OBSTETRICS [address] [place] [address] 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 [facility] Comment on above: 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 Start: 08-23-2023 End: 08-23-2023 Patient encounter procedure 08/23/2023 10:30 AM EST Office Visit [facility] Gastroenterology [address] [place], [place] [id number] Pia Coates, [employer] SUPERINTENDENT - [employer] HAND [address] [place] [address] [address] [place] [address] 6 wks [facility] Comment on above: 6 wks Start: 07-25-2023 End: 07-25-2023 Esophagogastroduodenoscopy transoral diagnostic EGD ESOPHAGOGASTRODUODENOSCOPY Chronic GERD Diarrhea, unspecified type Gas pain 07/25/2023 9:18 AM EST [facility] Start: 05-19-2023 Screening for malignant neoplasm of cervix Pap Smear [facility] Start: 02-27-2023 Rubella IgG measurement [facility] Start: 02-27-[address] [facility] Start: 02-27-[address] [facility] Start: 02-26-2023 Hospital admission [facility] Start: 02-26-2023 Hospital admission [facility] Start: 02-26-[address] [facility] Start: 02-26-2023 Delivery of Products of Conception, External Approach Delivery of Products of Conception, External Approach [facility] Start: 02-26-2023 Drainage of Amniotic Fluid, Therapeutic from Products of Conception, Via Natural or Artificial Opening Drainage of Amniotic Fluid, Therapeutic from Products of Conception, Via Natural or Artificial Opening [facility] Start: 02-26-2023 Urine culture Urine Culture [facility] Start: 02-25-[address] [facility] Start: 02-25-2023 Hospital admission [facility] Start: 02-22-[address] [facility] Start: 02-22-2023 [facility] Start: 02-22-2023 Bacteria identified in Urine by Culture [facility] Start: 02-19-[address] [facility] Start: 02-19-2023 Hospital admission [facility] Start: 02-17-[address] [facility] Start: 02-17-2023 Hospital admission [facility] Start: 02-17-2023 COVID-19 Vaccine ( season) COVID-19 Vaccine () [facility] Start: 02-16-2023 Streptococcus agalactiae culture Group B Streptococcus Culture [facility] Start: 02-07-[address] [facility] Start: 02-07-2023 Hospital admission [facility] Start: 01-26-[address] [facility] Start: 01-26-2023 Hospital admission [facility] Start: 01-24-2023 Hospital admission [facility] Start: 01-24-2023 End: 01-24-[address] [facility] Start: 01-17-2023 Influenza vaccination Flu vaccine (#1) [facility] Start: 01-14-[address] [facility] Start: 01-14-2023 Hospital [facility] Start: 01-05-2023 Adult BMI Screening Adult BMI Screening [facility] Start: 01-05-2023 Depression Screening Depression Screening [facility] Start: 01-05-2023 Tobacco Screening Tobacco Screening [facility] Start: 12-08-[address] [facility] Start: 12-08-2022 Hospital admission [facility] Start: 11-20-[address] [facility] Start: 11-20-2022 Hospital admission [facility] Start: 11-03-[address] [facility] Start: 11-03-2022 Hospital admission [facility] Start: 09-12-2016 Screening for malignant neoplasm of cervix Pap smear [facility] Start: 09-12-2013 Adult BMI Follow Up Plan Adult BMI Follow Up Plan [facility] Start: 09-12-2013 Hepatitis C screening Hepatitis C screen [facility] Start: 09-12-2010 HIV screening [facility] screen [facility] Start: 02-12-2003 Varicella vaccine (2 of 2 - 2-dose childhood series) Varicella vaccine (2 of 2 - 2-dose childhood series) [facility] Start: 09-12-2001 Pneumococcal 0-64 years Vaccine (1 of 2 - PCV) Pneumococcal 0-64 years Vaccine (1 of 2 - PCV) [facility] Start: 03-15-1996 COVID-19 Vaccine (#1) COVID-19 Vaccine (#1) [facility] [employer] Start: 1995 Tobacco Counseling Tobacco Counseling [facility] Albumin/Globulin ratio [facility] Anion gap measurement [facility] Bacteria identified in Genital specimen by Aerobe culture [facility] Basophils [#/volume] in Blood by Automated count [facility] Basophils/100 leukoc ytes in Blood by Automated count [facility] Bilirubin.indirect [Mass/volume] in Serum or Plasma [facility] End: 02-03-2024 Blood Culture 1 [facility] Comment on above: One Time for 1 Occurrences starting 01/17 until 02/03/2024 CT Abdomen and Pelvi s W contrast IV CT ABDOMEN PELVIS W IV CONTRAST Additional Contrast? None Imaging STAT 04/02/2024 12:29 PM [facility]T [facility] Eosin[facility]/100 leuk ocytes in Blood by Automated count [facility] Erythrocyte distribu tion width [Ratio] by Automated count [facility] Erythrocytes [#/volu me] in Blood [facility] Estradiol (E2) [Mass /volume] in Serum or Plasma [facility] Globulin [Mass/volum e] in Serum [facility] Glomerular filtratio n rate [Volume Rate/Area] in Serum, Plasma or Blood by Creatinine [facility] Hematocrit [Volume F raction] of Blood [facility] Hemoglobin [Mass/vol ume] in Blood [facility] Hepatitis B virus jennings rface Ag [Presence] in Serum or Plasma by Immunoassay [facility] End: 11-20-2023 INITIATE PACU OXYGEN THERAPY PROTOCOL Initiate PACU Oxygen Therapy Protocol Respiratory Care Routine Continuous until discontinued starting 11/20/2023 [facility] Comment on above: Continuous until discontinued starting 0 11/20/2023 Leukocytes [#/volume ] corrected for nucleated erythrocytes in Blood by Automated coun [facility] Leukocytes [#/volume ] in Blood [facility] Lymphocytes [#/volum e] in Blood by Automated count [facility] Lymphocytes/100 leuk ocytes in Blood by Automated count [facility] MCH [Entitic mass] b y Automated count [facility] MCHC [Mass/volume] b y Automated count [facility] MCV [Entitic volume] by Automated count [facility] Monocytes [#/volume] in Blood by Automated count [facility] Monocytes/100 leukoc ytes in Blood by Automated count [facility] Neutrophils [#/volum e] in Blood by Automated count [facility] Neutrophils/100 leuk ocytes in Blood by Automated count [facility] Nucleated erythrocyt es [Presence] in Blood by Automated count [facility] Oxygen therapy [Mini mum Data Set] Initiate Oxygen Therapy Protocol Respiratory Care Routine As Needed until discontinued starting 11/20/2023 [facility] Comment on above: As Needed until discontinued starting Oxygen therapy [Mini mum Data Set] Initiate Oxygen Therapy Protocol Respiratory Care Routine Daily until discontinued starting 04/11/2024 [facility] Comment on above: Daily until discontinued starting 2023 Patient Education [facility] Work Phone: Patient referral [facility] Work Phone: Platelet mean volume [Entitic volume] in Blood by Automated count [facility] Platelets [#/volume] in Blood [facility] End: 11-20-2023 , urine POCT , urine POCT Point of Care Testing Routine One Time for 1 Occurrences starting 11/20/2023 until 11/20/2023 [facility] Comment on above: One Time for 1 Occurrences starting 08/2023 until 11/20/2023 Reagin Ab [Presence] in Serum by RPR [facility] Surgical Pathology Surgical Path ology Lab Routine Chronic GERD Diarrhea, unspecified type Gas pain Release Upon Ordering for 1 Occurrences starting 07/25/2023 [facility] Phone: Comment on above: Release Upon Ordering for 1 Occurrences starting 07/25/2023 Surgical Pathology Surgical Path ology Lab Routine Menorrhagia with regular cycle Pelvic pain Adenomyosis Pelvic congestion syndrome Release Upon Ordering for 1 Occurrences starting 11/20/2023 [facility] Phone: Comment on above: Release Upon Ordering for 1 Occurrences starting 11/20/2023 End: 11-20-2023 SURGICAL PATHOLOGY REPORT SURGICAL PATHOLOGY REPORT Lab Routine Once for 1 Occurrences starting 11/20/2023 until 11/20/2023 [facility] Comment on above: Once for 1 Occurrences starting 11/20/19 until 11/20/2023 Surgical pathology study Surgica l Pathology Lab Routine Peritoneal cavity free air Release Upon Ordering for 1 Occurrences starting 04/10/2024 [facility] Comment on above: Release Upon Ordering for 1 Occurrences starting 04/10/2024 End: 03-17-2024 US Pelvis transvaginal [facility] Work Phone: Comment on above: Once for 1 Occurrences starting 03/17/20 until 03/17/2024 End: 02-06-2024 Vaginitis DNA Probe [facility] Comment on above: 1 Occurrences starting 02/06/2024 until 02/06/2024 [facility] Immunizations Immunization Date Immunization Notes Care Provider Fa lulú 02-27-2023 tetanus toxoid, redu hoda diphtheria toxoid, and acellular pertussis vaccine, adsorbed PHYSICIAN NO [facility] 12-08-2021 measles, mumps and rubella virus vaccine PHYSICIAN NO [facility] 12-08-2021 tetanus toxoid, redu hoda diphtheria toxoid, and acellular pertussis vaccine, adsorbed PHYSICIAN NO [facility] 12-27-2018 tetanus toxoid, redu hoda diphtheria toxoid, and acellular pertussis vaccine, adsorbed [facility] Work Phone: [facility] 07-26-2014 measles, mumps and rubella virus vaccine [facility] Work Phone: [facility] 04-24-2014 influenza, seasonal, injectable, preservative free [facility] Work Phone: [facility] 04-24-2014 influenza virus vaccine, unspecified formulation Lupe Claros [facility] 11-20-2002 diphtheria, tetanus toxoids and acellular pertussis vaccine, unspecified formulation [facility] Work Phone: [facility] 11-20-2002 haemophilus influenz ae type b conjugate and Hepatitis B vaccine [facility] Work Phone: [facility] 11-20-2002 measles, mumps and rubella virus vaccine [facility] Work Phone: [facility] 11-20-2002 varicella virus vaccine [facility] Work Phone: [facility] 04-03-2002 diphtheria, tetanus toxoids and acellular pertussis vaccine, unspecified formulation [facility] Work Phone: [facility] 04-03-2002 haemophilus influenz ae type b vaccine, conjugate unspecified formulation [facility] Work Phone: [facility] 04-03-2002 poliovirus vaccine, inactivated [facility] Work Phone: [facility] 02-07-2002 diphtheria, tetanus toxoids and acellular pertussis vaccine, unspecified formulation [facility] Work Phone: [facility] 02-07-2002 haemophilus influenz ae type b conjugate and Hepatitis B vaccine [facility] Work Phone: [facility] 02-07-2002 poliovirus vaccine, inactivated [facility] Work Phone: [facility] 12-05-2001 diphtheria, tetanus toxoids and acellular pertussis vaccine, unspecified formulation [facility] Work Phone: [facility] 12-05-2001 haemophilus influenz ae type b conjugate and Hepatitis B vaccine [facility] Work Phone: [facility] 12-05-2001 poliovirus vaccine, inactivated [facility] Work Phone: [facility] 10-31-2000 diphtheria, tetanus toxoids and acellular pertussis vaccine, unspecified formulation [facility] Work Phone: [facility] 10-31-2000 measles, mumps and rubella virus vaccine [facility] Work Phone: [facility] 10-31-2000 poliovirus vaccine, inactivated [facility] Work Phone: [facility] 11-01-1996 diphtheria, tetanus toxoids and acellular pertussis vaccine, unspecified formulation [facility] Work Phone: [facility] 11-01-1996 haemophilus influenz ae type b vaccine, conjugate unspecified formulation [facility] Work Phone: [facility] 11-01-1996 measles, mumps and rubella virus vaccine [facility] Work Phone: [facility] 04-17-1996 DTP-Haemophilus influenzae type b conjugate vaccine [facility] Work Phone: [facility] 04-17-1996 hepatitis B vaccine, pediatric or pediatric/adolescent dosage [facility] Work Phone: [facility] 04-17-1996 trivalent poliovirus vaccine, live, oral [facility] Work Phone: [facility] 02-01-1996 DTP-Haemophilus influenzae type b conjugate vaccine [facility] Work Phone: [facility] 02-01-1996 trivalent poliovirus vaccine, live, oral [facility] Work Phone: [facility] 1995 DTP-Haemophilus influenzae type b conjugate vaccine [facility] Work Phone: [facility] 1995 hepatitis B vaccine, pediatric or pediatric/adolescent dosage [facility] Work Phone: [facility] 1995 trivalent poliovirus vaccine, live, oral [facility] Work Phone: [facility] 1995 hepatitis B vaccine, pediatric or pediatric/adolescent dosage [facility] Work Phone: [facility] Payers Date Payer Category Payer Private Health Insurance [facility] [employer] [id number] 2022 Unknown [id number] 2022 Medicaid [employer] HMO [id number] 2022-Present [phone] [address] [place] [address] [id number] 2018 Medicaid [id number] 1995 Unknown [id number] 2.16.840.1.182827.3.579.2. 174 1995 Unknown [id number] 2.16.840.1.037064.3.579.2. 718 1995 Unknown [id number] 2.16.840.1.518932.3.579.2. 718 1995 Unknown [id number] 2.16.840.1.255329.3.579.2. 718 1995 Unknown [id number] 2.16.840.1.994714.3.579.2. 1995 Unknown [id number] 2.16.840.1.183912.3.579.2. 1995 Unknown [id number] 2.16.840.1.895797.3.579.2. 1995 Unknown [id number] 2.16.840.1.906339.3.579.2. 1995 Unknown [id number] 2.16.840.1.602326.3.579.2. 1995 Unknown [id number] 2.16.840.1.293026.3.579.2. 1285 1995 Unknown [id number] 2.16.840.1.532740.3.579.2. 1285 1995 Unknown [id number] 2.16.840.1.541554.3.579.2. 1285 1995 Unknown [id number] 2.16.840.1.061801.3.579.2. 1285 1995 Unknown [id number] 2.16.840.1.123898.3.579.2. 1285 1995 Unknown [id number] 2.16.840.1.237996.3.579.2. 1285 1995 Unknown [id number] 2.16.840.1.060239.3.579.2. 1285 1995 Unknown [id number] 2.16.840.1.093076.3.579.2. 173 1995 Unknown [id number] 2.16.840.1.246784.3.579.2. 173 1995 Unknown [id number] 2.16.840.1.285811.3.579.2. 173 1995 Unknown [id number] 2.16.840.1.395577.3.579.2. 173 1995 Unknown [id number] 2.16.840.1.595441.3.579.2. 173 1995 Unknown [id number] 2.16.840.1.705726.3.579.2. 173 1995 Unknown [id number] 2.16.840.1.653793.3.579.2. 173 1995 Unknown [id number] 2.16.840.1.542279.3.579.2. 173 1995 Unknown [id number] 2.16.840.1.612883.3.579.2. 173 1995 Unknown [id number] 2.16.840.1.427049.3.579.2. 173 1995 Unknown [id number] 2.16.840.1.817590.3.579.2. 173 1995 Unknown [id number] 2.16.840.1.673777.3.579.2. 173 1995 Unknown [id number] 2.16.840.1.064825.3.579.2. 173 1995 Unknown [id number] 2.16.840.1.092803.3.579.2. 1259 1995 Unknown [id number] 2.16.840.1.572466.3.579.2. 1259 1995 Unknown [id number] 2.16.840.1.908245.3.579.2. 1259 1995 Unknown [id number] 2.16.840.1.258685.3.579.2. 1259 1995 Unknown [id number] 2.16.840.1.317473.3.579.2. 1259 1995 Unknown [id number] 2.16.840.1.137698.3.579.2. 1259 Self-pay Self Pay [id number] Unknown [id number] 2.16.840.1.900042.19 Unknown [id number] Social History Date Type Detail Facility Start: 07-25-2023 End: 11-06-2024 Sex Assigned At [facility] Start: 06-21-2022 End: 11-15-2024 Tobacco smoking status NHIS Smoker (finding) [facility] Start: 1995 Sex Assigned At Female F [facility] Start: 07-24-2023 Tobacco smoking stat [facility] Never smoked tobacco [facility] Start: 04-25-2023 End: 07-24-2023 Tobacco use and exposure Smokeless tobacco non-user [facility] Start: 07-25-2023 End: 02-15-2024 Alcohol intake Ex-drinker (finding) [facility] Start: 07-25-2023 End: 11-06-2024 History of Social function [facility] Patient Health Questionnaire 9 item (PHQ-9) total score [Reported] 23 [facility] Start: 07-19-2023 Alcohol Comment occ [email or web address] Start: 1995 Sex Assigned At Not on file B ON [facility] How often to you hav e a drink containing alcohol? Never [facility] Start: 04-02-2024 End: 03-26-2025 Tobacco smoking status COIS Smokes tobacco daily [facility] History of tobacco use Cigarette Smoker P [employer] Has the electric, ga s, oil, or water company threatened to shut off services in your home in past 12Mo No [facility] (I/We) worried dasha er (my/our) food would run out before (I/we) got money to buy more. Never true [facility] Start: 04-25-2023 Tobacco smoking stat us COIS Occasional tobacco smoker [facility] Start: 01-23-2024 End: 11-06-2024 Alcoholic beverage intake Lifetime non-drinker (finding) [facility] Start: 05-03-2023 Education 13 [facility] Start: 07-22-2024 End: 11-25-2024 Sex Female (finding) [facility] Start: 06-30-2020 End: 04-04-2025 Tobacco smoking status NHIS Ex-smoker [facility] Start: 04-28-2020 End: 02-15-2024 Tobacco Comment Down to 2-3 cig/day with [facility] NEGATED: Highlighted row N [facility] Goals Date Patient Goal Desired Activity /State Personal health goal Comment on above: Formatting of this n ote might be different from the original. Evaluation of progress towards goal: progressing towards safe discharge from hospital Functional Status Date Assessment Result Facility 03-25-2025 Functional status Patient at Baseline [facility] Work Phone: 11-16-2024 Functional status Patient at Baseline [facility] Work Phone: 11-15-2024 Functional status Disability Sta tus Patient at Baseline [facility] Work Phone: 11-10-2024 Functional status Patient at Baseline [facility] Work Phone: 11-07-2024 Functional status Functional Sta tus Comment Independent with all ADLs and IADLs. [facility] Work Phone: 02-27-2023 Functional status Patient at Baseline [facility] Work Phone: Mental Status Date Assessment Result Facility 03-25-2025 Cognitive function Cognitive Sta tus Patient at Baseline [facility] Work Phone: 11-16-2024 Cognitive function Cognitive Sta tus Patient at Baseline [facility] Work Phone: 11-10-2024 Cognitive function Cognitive Sta tus Patient at Baseline [facility] Work Phone: 02-27-2023 Cognitive function Cognitive Sta tus Patient at Baseline [facility] Work Phone: Clinical Notes 04-26-2022 to 03-26-2025 Note Date & Type Note Facility 03-26-2025 Radiology Diagnostic study note [facility] Main [place] [address] [place] [address] CT Scan Report Signed Patient: Barbra Claros MR#: [id number] : 1995 Acct:[id number] Age/Sex: 29 / F ADM Date: 5 Loc: ER Room: Type: [facility] ER Attending Dr: Copies to: Goyo Epps DO~ Ordering Provider: Goyo Epps DO Date of Service: 03/26/25 CT/CT abdomen pelvis w con: Abdominal Pain CT ABDOMEN AND PELVIS WITH INTRAVENOUS CONTRAST: CLINICAL HISTORY: Abdominal pain. Abdominal surgery 2 days ago. COMPARISON: CT abdomen and pelvis 03/19/2025 TECHNIQUE: Spiral images were obtained through the abdomen and pelvis followingthe administration of intravenous contrast. This CT exam was performed using one or more following dose reduction techniques: Automated exposure control, adjustment of the mA and/or kV according to patient size, or use of iterative reconstruction technique. FINDINGS: Lung Bases: [Mild bibasilar atelectasis.] Organs:Liver gallbladder pancreas spleen adrenal glands kidneys and aorta all appear unremarkable.[ GI: Stomach is grossly unremarkable. Small bowel appears nondilated. No acute colonic abnormality is seen. Appendix has been removed.[ Pelvis:[Urinary bladder is grossly unremarkable. Uterus has been removed.] Peritoneum/Retroperitoneum:Scat tered areas of free air are noted likely postsurgical in nature. Small amount of blood is seen within the pelvis. No lymphadenopathy.[ Abd wall/Bones:Abdominal wall demonstrates postoperative changes. No fluid collection to suggest abscess. Fat-containing umbilical hernia. Osseous structures demonstrate degenerative change.[ CT/CT abdomen pelvis w con IMPRESSION: Impression dictated by: Leonard Maria Jr., D.O. 03/26/2025 11:31 AM Dictation Location: [facility]- Transcribed By: SEMAJ 03/26/25 1131 Dictated By: Leonard Maria Jr, DO 03/26/25 1127 Signed By: 03/26/[address] [facility] 03-25-2025 Progress note [facility] 03-24-2025 History and physical note Note Date/Time March 24, 2025 5:26pm [facility] EN[facility] [address] [place] [address] [address] History & Physical Signed Patient: Barbra Claros MR#: [id number] : 1995 Acct:[id number] Age/Sex: 29 / F Adm Date: 5 Loc: Room: [address] [place] [address] Type: ADM IN Attending Dr: Michael Gurrola MD Copies to: NON STAFF MICHAEL GURROLA MD~ Date of Service: 03/24/2025 EXTERIOR DESIGNER - HPI History of Present Illness Planned Procedure: Operation Date: 03/24/25 17:15 Proposed Procedures p OR Laparoscopic Ovarian Cyst, Open Technique(Not Applicable) - Michael Gurrola MD HPI: Patient is a 29-year-old female well-known to ia. She has chronic right lower quadrant pain but now is having acute pain on top of the chronic pain. She reported to [facility] 4 days ago and was transferred to ia at [facility]. Examination revealed that she did not have an acute abdomen. She was discharged home on pain management and she was scheduled for surgery on April 01. Unfortunately she returned to the emergency room at [facility] yesterday. She had another pelvic ultrasound done which showed her right ovarian cyst to be decreasing in size. However ultrasound showed no flow to the ovary causing concern for possibility of ovarian torsion. She was transferred to ia at [facility] again. She expresses a firm desire to proceed with surgery at this time and so arrangements have been made. [facility] Medical History (Updated 03/23/25 @ 22:43 by Lisha Go RN) Headache Hx of blood transfusion reaction Ovarian cyst Stomach pain Ovarian cyst removal of cyst in 09/20/2019 Depression Anxiety Hemorrhagic cyst of right ovary Kidney stones with last Surgical History (Updated 03/23/25 @ 22:43 by Lisha Go RN) S/P removal of left ovary 03/2024 History of partial hysterectomy 2019 Family History (Updated 03/23/25 @ 22:00 by Lisha Go RN) Brother Heart murmur Legacy FamHx Relation: Brother(s) Other Hypertension Social History Smoking Status: Current every day smoker Tobacco Type: e-cigarettes Substance Use Type: Marijuana Substance Abuse Comment: Marijuana use - current; 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) 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 & Medications Medications and Allergies Allergies chlorpheniramine (From Triaminic Cold and Cough) Allergy (Verified 03/23/25 22:05) Swelling of Lip/Tongue/Throat dextromethorphan (From Triaminic Cold and Cough) Allergy (Verified 03/23/25 22:05) Swelling of Lip/Tongue/Throat pseudoephedrine (From Triaminic Cold and Cough) Allergy (Verified 03/23/25 22:05) Swelling of Lip/Tongue/Throat triaminic Allergy (Unknown, Uncoded 01/08/24 12:35) Anaphylaxis Home Medications venlafaxine 150 mg capsule,extended release 24 hr 150 mg PO DAILY #15 caps 12/06/24 [Rx Confirmed 03/23/25] venlafaxine 37.5 mg capsule,extended release 24 hr 37.5 mg PO DAILY #15 caps 12/06/24 [Rx Confirmed 03/23/25] buspirone 15 mg tablet 15 mg PO TID 01/22/25 [History Confirmed 03/23/25] trazodone 150 mg tablet 150 mg PO HS 01/22/25 [History Confirmed 03/23/25] cariprazine 4.5 mg capsule (Vraylar) 4.5 mg PO DAILY #30 caps 01/24/25 [Rx Confirmed 03/23/25] oxcarbazepine 300 mg tablet 450 mg PO DAILY 02/24/25 [History Confirmed 03/23/25] ibuprofen 600 mg tablet 600 mg PO Q6H PRN pain #30 tabs 03/20/25 [Rx Confirmed 03/23/25] Active Medications Hydromorphone HCl (Hydromorphone 1 Mg/Ml Syringe) 2 mg IV-PUSH Q6H PRN PRN Reason: Pain Last Admin: 03/24/25 13:43 Dose: 2 mg Hydromorphone HCl (Hydromorphone 0.5 Mg/0.5 Ml Syringe) 0.5 mg IV-PUSH Q5M PRN PRN Reason: Pain Stop: 03/24/25 19:11 Dextrose/Sodium Chloride (5 % Dextrose-0.45 % Nacl) 1,000 mls @ 150 mls/hr IV .Q6H40M YEN Stop: 03/23/26 22:14 Last Admin: 03/24/25 12:30 Dose: 150 mls/hr Lactated Ringer's (Lactated Ringers) 1,000 mls @ 20 mls/hr IV .Q24H ONE Stop: 03/25/25 11:56 Last Admin: 03/24/25 15:43 Dose: 20 mls/hr Ketorolac Tromethamine (Ketorolac Tromethamine 30 Mg/Ml Vial) 30 mg IV-PUSH Q6HR YEN Stop: 03/28/25 22:14 Last Admin: 03/24/25 10:38 Dose: 30 mg Ondansetron HCl (Ondansetron 4 Mg/2 Ml Vial) 4 mg IV-PUSH Q4H PRN PRN Reason: Nausea And Vomiting Stop: 03/23/26 22:12 Last Admin: 03/24/25 14:49 Dose: 4 mg Ondansetron HCl (Ondansetron 4 Mg/2 Ml Vial) 4 mg IV-PUSH ONCE PRN PRN Reason: Nausea/Vomiting Stop: 03/24/25 19:11 Sodium Chloride (Sodium Chloride 0.9 % 10 Ml Syringe) 0 ml IV-PUSH PRN PRN PRN Reason: Flush Stop: 03/24/26 11:56 EXTERIOR DESIGNER - Exam Physical Exam Vital signs: Temp 98 F 03/24/25 15:38 Pulse 76 03/24/25 15:38 Resp 16 03/24/25 15:38 BP 115/68 03/24/25 15:38 Pulse Ox 98 03/24/25 15:38 O2 Del Method Room Air 03/24/25 15:38 Constitutional Constitutional: mild distress Routine HEENT Exam Head: Present normocephalic and atraumatic Routine Respiratory Exam Respiratory: Absent respiratory distress Routine Abdominal Exam Abdominal: Present soft, normoactive bowel sounds and tenderness; Absent distended, rebound, guarding or firm Comments: She is diffusely tender. Interestingly, when you palpate the abdomen with a stethoscope she does not elicit a pain response. However when you palpate the abdomen without a stethoscope she does demonstrate a pain response EXTERIOR DESIGNER - A/P (1) Chronic right lower quadrant pain: (2) Ovarian cyst: Plan Ovarian cyst has an appearance of being hemorrhagic on ultrasound. The patient expresses a firm desire to have this surgically removed even though it is her only remaining ovary. She does understand that upon removal of the ovary she will be in menopause and likely require hormone replacement therapy. She is amenable to that. She also understands that she has had a complicated surgical history including apelvic abscess as well as a report of severe adhesions. She has a vertical midline scar. I have explained to her the possibility of severe pelvic adhesivedisease possibly requiring laparotomy and also increasing the risk of bowel injury. She understands and accepts these risks and wishes to proceed. We willproceed with laparoscopy utilizing an open entry technique to minimize risk of bowel injury. Our plan is to remove the right ovary. Documented By: MICHAEL GURROLA MD 03/24/251715 Signed By: <Electronically signed by MD MICHAEL GURROLA> 03/24/251725 [facility] Work Phone: 1(310) 630-437310-06-2025 [place] [address] [address]CHN[address] History & Physical Signed Patient: Barbra Claros MR#: [id number] : 1995 Acct:[id number] Age/Sex: 29 / F Adm Date: 5 Loc: Room: [address] [place] [address] Type: ADM IN Attending Dr: Michael Gurrola MD Copies to: NON STAFF MICHAEL GURROLA MD~ Date of Service: 03/24/2025 EXTERIOR DESIGNER - HPI History of Present Illness Planned Procedure: Operation Date: 03/24/25 17:15 Proposed Procedures p OR Laparoscopic Ovarian Cyst, Open Technique(Not Applicable) - Michael Gurrola MD HPI: Patient is a 29-year-old female well-known to ia. She has chronic right lower quadrant pain but nowis having acute pain on top of the chronic pain. She reported to [facility] 4 days ago and was transferred to ia at [facility]. Examination revealed that she did not have an acute abdomen. She was discharged home on pain management and she was scheduled for surgery on April 01. Unfortunately she returned to the emergency room at [facility] yesterday. She had another pelvic ultrasound done which showed her right ovarian cyst to be decreasing in size. However ultrasound showed no flow to the ovary causing concern for possibility of ovarian torsion. She was transferred to me at [facility] again. She expresses a firm desire to proceed with surgery at this time and so arrangements have been made. [facility] Medical History (Updated 03/23/25 @ 22:43 by Lisha Go RN) Headache Hx of blood transfusion reaction Ovarian cyst Stomach pain Ovarian cyst removal of cyst in 09/20/2019 Depression Anxiety Hemorrhagic cyst of right ovary Kidney stones with last Surgical History (Updated 03/23/25 @ 22:43 by Lisha Go RN) S/P removal of left ovary 03/2024 History of partial hysterectomy 2019 Family History (Updated 03/23/25 @ 22:00 by Lisha Go RN) Brother Heart murmur Legacy FamHx Relation: Brother(s) Other Hypertension Social History Smoking Status: Current every day smoker Tobacco Type: e-cigarettes Substance Use Type: Marijuana Substance Abuse Comment: Marijuana use - current; 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) 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 & 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 Medications and Allergies Allergies chlorpheniramine (From Triaminic Cold and Cough) Allergy (Verified 03/23/25 22:05) Swelling of Lip/Tongue/Throat dextromethorphan (From Triaminic Cold and Cough) Allergy (Verified 03/23/25 22:05) Swelling of Lip/Tongue/Throat pseudoephedrine (From Triaminic Cold and Cough) Allergy (Verified 03/23/25 22:05) Swelling of Lip/Tongue/Throat triaminic Allergy (Unknown, Uncoded 01/08/24 12:35) Anaphylaxis Home Medications venlafaxine 150 mg capsule,extended release 24 hr 150 mg PO DAILY #15 caps 12/06/24 [Rx Confirmed 03/23/25] venlafaxine 37.5 mg capsule,extended release 24 hr 37.5 mg PO DAILY #15 caps 12/06/24 [Rx Txblmsxmn18/05/25] buspirone 15 mg tablet 15 mg PO TID 01/22/25 [History Confirmed 03/23/25] trazodone 150 mg tablet 150 mg PO HS 01/22/25 [History Confirmed 03/23/25] cariprazine 4.5 mg capsule (Vraylar) 4.5 mg PO DAILY #30 caps 01/24/25 [Rx Confirmed 03/23/25] oxcarbazepine 300 mg tablet 450 mg PO DAILY 02/24/25 [History Confirmed 03/23/25] ibuprofen 600 mg tablet 600 mg PO Q6H PRN pain #30 tabs 03/20/25 [Rx Confirmed 03/23/25] Active Medications Hydromorphone HCl (Hydromorphone 1 Mg/Ml Syringe) 2 mg IV-PUSH Q6H PRN PRN Reason: Pain Last Admin: 03/24/25 13:43 Dose: 2 mg Hydromorphone HCl (Hydromorphone 0.5 Mg/0.5 Ml Syringe) 0.5 mg IV-PUSH Q5M PRN PRN Reason: Pain Stop: 03/24/25 19:11 Dextrose/Sodium Chloride (5 % Dextrose-0.45 % Nacl) 1,000 mls @ 150 mls/hr IV .Q6H40M YEN Stop: 03/23/26 22:14 Last Admin: 03/24/25 12:30 Dose: 150 mls/hr Lactated Ringer's (Lactated Ringers) 1,000 mls @ 20 mls/hr IV .Q24H ONE Stop: 03/25/25 11:56 Last Admin: 03/24/25 15:43 Dose: 20 mls/hr Ketorolac Tromethamine (Ketorolac Tromethamine 30 Mg/Ml Vial) 30 mg IV-PUSH Q6HR YEN Stop: 03/28/25 22:14 Last Admin: 03/24/25 10:38 Dose: 30 mg Ondansetron HCl (Ondansetron 4 Mg/2 Ml Vial) 4 mg IV-PUSH Q4H PRN PRN Reason: Nausea And Vomiting Stop: 03/23/26 22:12 Last Admin: 03/24/25 14:49 Dose: 4 mg Ondansetron HCl (Ondansetron 4 Mg/2 Ml Vial) 4 mg IV-PUSH ONCE PRN PRN Reason: Nausea/Vomiting Stop: 03/24/25 19:11 Sodium Chloride (Sodium Chloride 0.9 % 10 Ml Syringe) 0 ml IV-PUSH PRN PRN PRN Reason: Flush Stop: 03/24/26 11:56 EXTERIOR DESIGNER - Exam Physical Exam Vital signs: Temp 98 F 03/24/25 15:38 Pulse 76 03/24/25 15:38 Resp 16 03/24/25 15:38 BP 115/68 03/24/25 15:38 Pulse Ox 98 03/24/25 15:38 O2 Del Method Room Air 03/24/25 15:38 Constitutional Constitutional: mild distress Routine HEENT Exam Head: Present normocephalic and atraumatic Routine Respiratory Exam Respiratory: Absent respiratory distress Routine Abdominal Exam Abdominal: Present soft, normoactive bowel sounds and tenderness; Absent distended, rebound, guarding or firm Comments: She is diffusely tender. Interestingly, when you palpate the abdomen with a stethoscope she does not elicit a pain response. However when you palpate the abdomen without a stethoscope she does demonstrate a pain response EXTERIOR DESIGNER - A/P (1) Chronic right lower quadrant pain: (2) Ovarian cyst: Plan Ovarian cyst has an appearance of being hemorrhagic on ultrasound. The patient expresses a firm desire to have this surgically removed even though it is her only remaining ovary. She does understand that upon removal of the ovary she will be in menopause and likely require hormone replacement therapy. She is amenable to that. She also understands that she has had a complicated surgical history including apelvic abscess as well as a report of severe adhesions. She has a vertical midline scar. I have explained to her the possibility of severe pelvic adhesivedisease possibly requiring laparotomy and also increasing the risk of bowel injury. She understands and accepts these risks and wishes to proceed. We willproceed with laparoscopy utilizing an open entry technique to minimize risk of bowel injury. Our plan is to remove the right ovary. Documented By: MICHAEL GURROLA MD 03/24/251715 Signed By: 03/24/[address] [facility]10-02-2025 History and physical note Author MICHAEL GURROLA [facility] Note Date/Time March 20, 2025 6: 12am [facility] [address] [place] [address] [address] History & Physical Signed Patient: Barbra Claros MR#: [id number] : 1995 Acct:[id number] Age/Sex: 29 / F Adm Date: 5 Loc: Room: [address] [place] [address] Type: ADM IN Attending Dr: Michael Gurrola MD Copies to: NON STAFF MICHAEL GURROLA MD~ Date of Service: 03/20/2025 EXTERIOR DESIGNER - HPI History of Present Illness Chief Complaint: Pain HPI: Patient is a 29-year-old female well-known to me. She suffers chronic intermittent right lower quadrant pain for more than the last year. She has hada hysterectomy because of this pain and yet it did not improve. Unfortunately that surgery was complicated by a pelvic abscess requiring a 2-week hospital stay in [place]. Sometime following that she presented to another [...] does have an appetite. She reported to [facility] where CAT scan and ultrasound showed a 4 cm cyst on the right ovary that has a hemorrhagic appearance to it. [facility] however no anesthesiologist was available so it was requested that the patient be transferred. As the patient is my patient and I excepted her care. Overnight the patient has had no episodes. She has had restful sleep and has not required any pain medications through the night. [facility] Medical History (Updated 03/20/25 @ 06:10 by [...] [History Confirmed 03/19/25] cariprazine 4.5 mg capsule (Laurenlar) 4.5 mg PO DAILY #30 caps 01/24/25 [...] 1.5 Mg Capsule) 4.5 mg PO DAILY [facility] Stop: 03/20/26 08:59 Hydromorphone HCl (Hydromorphone 2 [...] 150 Mg Tablet) 450 mg PO DAILY YEN Stop: 03/20/26 08:59 Trazodone HCl (Trazodone 150 Mg Tablet) 150 mg PO HS YEN Stop: 03/19/26 21:59 Last Admin: 03/19/25 23:05 Dose: 150 mg Venlafaxine HCl (Venlafaxine Er 37.5 Mg Cap.Er.24h) 37.5 mg PO DAILY YEN Stop: 03/20/26 08:59 Venlafaxine HCl (Venlafaxine Er 150 Mg Cap.Er.24h) 150 mg PO DAILY [facility] Stop: 03/20/26 08:59 EXTERIOR DESIGNER - Exam Physical Exam Vital signs: Resp [...] the abdomen without the stethoscope she winces EXTERIOR DESIGNER - A/P (1) Chronic right lower quadrant [...] <Electronically signed by MD MICHAEL GURROLA> 03/20/25611 [facility] Work Phone: 1(133) 544-341810-02-2025 [place] [address] History & Physical Signed Patient: Barbra Claros MR#: [id number] : 1995 Acct:[id number] Age/Sex: 29 / F Adm Date: 5 Loc: Room: [address] [place] [address] Type: ADM IN Attending Dr: Michael Gurrola MD Copies to: NON STAFF MICHAEL GURROLA MD~ Date of Service: 03/20/2025 EXTERIOR DESIGNER - HPI History of Present Illness Chief Complaint: Pain HPI: Patient is a 29-year-old female well-known to me. She suffers chronic intermittent right lower quadrant pain for more than the last year. She has hada hysterectomy because of this pain and yet it didnot improve. Unfortunately that surgery was complicated by a pelvic abscess requiring a 2-week hospital stay in [place]. Sometime following that she presented to another [...] does have an appetite. She reported to [facility] where CAT scan and ultrasound showed a 4 cm cyst on the right ovary that has a hemorrhagic appearanceto it. [facility] however no anesthesiologist was available so it was requested that the patient be transferred. As the patient is my patient and I excepted her care. Overnight the patient has had no episodes. She has had restful sleep and has not required any pain medications through the night. [facility] Medical History (Updated 03/20/25 @ 06:10 by [...] mg PO DAILY #15 caps 12/06/24 [Rx Mzcozspot71/01/25] buspirone 15 mg tablet 15 mg PO [...] 150 Mg Tablet) 450 mg PO DAILY YEN Stop: 03/20/26 08:59 Trazodone HCl (Trazodone 150 Mg Tablet) 150 mg PO HS YEN Stop: 03/19/26 21:59 Last Admin: 03/19/25 23:05 Dose: 150 mg Venlafaxine HCl (Venlafaxine Er 37.5 Mg Cap.Er.24h) 37.5 mg PO DAILY YEN Stop: 03/20/26 08:59 Venlafaxine HCl (Venlafaxine Er 150 Mg Cap.Er.24h) 150 mg PO DAILY YEN Stop: 03/20/26 08:59 EXTERIOR DESIGNER - Exam Physical Exam Vital signs: Resp [...] the abdomen without the stethoscope she winces EXTERIOR DESIGNER - A/P (1) Chronic right lower quadrant [...] MICHAEL GURROLA MD 03/20/25602 Signed By: 03/20/[address] [facility]08-08-2025 Hospital Discharge instructions Additional Instructions Important Contact Information You can call [facility] at [phone] any time day or night if you have emergent questions or question regarding discharge instructions. If at any time you are feeling an increase in your psychiatric symptoms, call your physician or behavioral healthcare provider. If any time you have thoughts of harming yourself or others contact one of the following: Call 88 (available 09/01) Crisis Text Line (available 09/01) text 4HOPE to [phone] [employer] Hope Line (available 8 a.m. Midnight) call [phone] ([phone]) [facility] Work Phone: 1(838) 923-778408-06-2025 Evaluation note* Diagnosis Onset Date Resolution Status Admit Date Major depressive disorder, recurrent acute January 22, 2025 4:22pm Suicidal ideation resolved January 22, 2025 4:22pm Abdominal pain inactive January 2:02pm Bacterial pharyngitis acute Sep 2024 9:56am UTI (urinary tract infection) acute February 24, 025 9:56am Viral URI acute February 24, 2025 9:56am Chronic right lower quadrant pain resolved March 19 9:59pm Ovarian cyst resolved March 19, 2025 9:59pm Chronic right lower quadrant pain resolved March 23 10:09pm Ovarian cyst resolved March 23, 2025 10:09pm [facility] Work Phone: 1(348) 707-851007-16-2025 Hospital Discharge instructions Additional Instructions Important Contact Information You can call [facility] at [phone] any time day or night if you have emergent questions or question regarding discharge instructions. If at any time you are feeling an increase in your psychiatric symptoms, call your physician or behavioral healthcare provider. If any time you have thoughts of harming yourself or others contact one of the following: Call 88 (available 09/01) Crisis Text Line (available 09/01) text 4HOPE to [phone] [facility] Hope Line (available 8 a.m. Midnight) call [phone] ([phone]) [facility] Work Phone: 1(453) 292-622307-14-2025 Evaluation note* Diagnosis Onset Date Resolution Status Admit Date Pain in tooth acute December 29, 2024 11:05pm Depression with suicidal ideation resolved December 29, 2024 11:05pm Suicidal ideation resolved December 292024 11:05pm Major depressive disorder, recurrent acute January 22, 2025 4:22pm Suicidal ideation resolved January 22, 2025 4:22pm Abdominal pain inactive January 2:02pm Bacterial pharyngitis acute Feb 9:56am UTI (urinary tract infection) acute February 24, 2 025 9:56am Viral URI acute February 24, 2025 9:56am Chronic right lower quadrant pain acute March 19 9:59pm Ovarian cyst acute March 19, 2025 9:59pm [facility] Work Phone: 1(733) 818-207907-14-2025 Evaluation note* Diagnosis Onset Date Resolution Status [...] UTI (urinary tract infection) acute February 24, 025 9:56am Viral URI acute February 24, 2025 9:56am Chronic right lower quadrant pain acute March 19 9:59pm Ovarian cyst acute March 19, 2025 9:59pm Chronic right lower quadrant pain acute March 23 10:09pm Ovarian cyst acute March 23, 2025 10:09pm [facility] Work Phone: 1(311) 811-875206-18-2025 Evaluation note* Diagnosis Onset Date Resolution Status [...] 2025 4:22pm Abdominal pain inactive January 2:02pm [facility] Work Phone: 1(815) 170-544005-31-2025 [place] [address] Discharge Summary Signed Patient: Barbra Claros MR#: [id number] : 1995 Acct:[id number] Age/Sex: 29 / F Adm Date: 5 Loc: Room: [address] [place] [address]: Dashawn Moreno MD Copies to: [...] noted that she got [facility] ago. She noted that [...] going to relapse or end up in penitentiary. She did not exhibit any behavior concerningfor [...] 15 Days Qty: 15 1RF Follow Up: [facility] [Outside] (was referred at last admission) [facility] [place] [Outside] (for any urgent medical needs) Exam Physical Exam Vital Signs: Temp Pulse Resp BP Pulse Ox O2 Del Method 97.7 F 102 H 15 122/87 99 Room Air 11/16/24 07:30 11/16/24 07:30 11/16/24 07:30 11/16/24 07:30 11/16/24 07:30 11/16/24 09:00 Documented By: Dashawn Moreno MD 11/16/24 1247 Signed By: 11/16/24 1251 [facility] [facility]05-30-2025 History and physical note Author Dashawn Moreno [facility] Note Date/Time November 15, 2024 11:57 am [facility] ENTER [address] [place] [address] Psychiatry H&P Signed Patient: Barbra Claros MR#: [id number] : 1995 Acct:[id number] Age/Sex: 29 / F Adm Date: 5 Loc: Room: [address] [place] [address] Type: ADM IN Attending Dr: Dashawn Moreno [...] noted that she got out of the [facility] days ago. She noted that [...] this with the resident as noted below. [facility] Medical History (Updated 11/15/24 @ 05:33 by Goyo Epps DO) Headache Dysphagia Crohn's disease Hx of [...] Appearance Clear Urine pH 7.0 Ur Specific [place] 1.031 H Urine Protein 20 H Urine [...] <Electronically signed by DO ARABELLA Munoz> 11/15/24 1051 [facility] Work Phone: 1(631) 325-136405-30-2025 [place] [address] Psychiatry H&P Signed Patient: Barbra Claros MR#: [id number] : 1995 Acct:[id number] Age/Sex: 29 / F Adm Date: 5 Loc: Room: [address] [place] [address] Type: ADM IN Attending Dr: Dashawn Moreno [...] noted that she got out of the [facility] days ago. She noted that [...] confirmed this withthe resident as noted below. [facility] Medical History (Updated 11/15/24 @ 05:33 by Goyo Epps DO) Headache Dysphagia Crohn's disease Hx of [...] Appearance Clear Urine pH 7.0 Ur Specific [place] 1.031 H Urine Protein 20 H Urine [...] 1049 Signed By: 11/15/24 1157 11/15/[address] 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 She was agreeable to treatment and hopes [...] Specifically last Monday, she was sent to [facility] due to panic attacks at which time they suggested that she voluntarily admit herself to 1 S[address] but said she was talked out of it by her mother. Has been wanting to increase her venlafaxine dose recently. Tells me that she does not have a PCP or mental provider in the community but her medications are managed by her search engineer Dr. Gurrola. This morning she denies SI, [...] or stop treatment, but to call [employer], 911 or come to the nearest emergency [...] QAM Patient Comments: with breakfast Follow Up: [facility] [Outside] (new referral) [facility] [place] [Outside] (for any urgent medical needs) Exam Physical Exam Vital Signs: Temp Pulse Resp BP Pulse Ox O2 Del Method 98.2 F 95 16 119/72 97 Room Air 11/09/24 19:59 11/09/24 19:59 11/09/24 19:59 11/09/24 19:59 11/09/24 19:59 11/09/24 21:00 Documented By: Kit Gutierrez MD 5 9730 Signed By: 11/10/[address] [facility]05-24-2025 Progress note Author Kit fox [facility] Note Date/Time November 09, 2024 7:31a m [facility] EN[facility] [address] [place] [address] Psychiatry Progress Note Signed Patient: Barbra Claros MR#: [id number] : 1995 Acct:[id number] Age/Sex: 29 / F Adm Date: 5 Loc: Room: [address] [place] [address] Type : ADM IN Attending Dr: Kit [...] F 98 20 121/84 98 Room Air 05/23/25 23:30 11/08/24 23:30 11/08/24 23:30 11/08/24 23:30 [...] signed by Kit Gutierrez MD> 11/09/24 0731 [facility] Work Phone: 1(450) 280-722705-24-2025 [place] [address] Psychiatry Progress Note Signed Patient: Barbra Claros MR#: [id number] : 1995 Acct:[id number] Age/Sex: 29 / F Adm Date: 5 Loc: Room: [address] [place] [address] Type : ADM IN Attending Dr: Kit [...] MD 5 0729 Signed By: 11/09/[address] [facility]05-23-2025 Progress note Author Kit fox [facility] Note Date/Time November 08, 2024 1:42p m [facility] EN[facility] [address] [place] [address] Psychiatry Progress Note Signed Patient: Barbra Claros MR#: [id number] : 1995 Acct:[id number] Age/Sex: 29 / F Adm Date: 5 Loc: 1S Room: [address] [place] [address] Type : ADM IN Attending Dr: Kit [...] <Electronically signed by Kit Gutierrez MD> 11/08/[address] [place] [address] Work Phone: 1(543) 710-297105-23-2025 [place] [address] Psychiatry Progress Note Signed Patient: Barbra Claros MR#: [id number] : 1995 Acct:[id number] Age/Sex: 29 / F Adm Date: 5 Loc: Room: [address] [place] [address] Type : ADM IN Attending Dr: Kit [...] MD 5 1016 Signed By: 11/08/[address] [facility]05-22-2025 History and physical note Author Kit fox 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 She was agreeable to treatment and hopes [...] Specifically last Monday, she was sent to [facility] due to panic attacks at which time they suggested that she voluntarily admit herself to 1 S[address] but said she was talked out of it by her mother. Has been wanting to increase her venlafaxine dose recently. Tells me that she does not have a PCP or mental provider in the community but her medications are managed by her search engineer Dr. Gurrola. This morning she denies SI, HI, delusions. 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 EHR [facility] Ovarian cyst removal of cyst in 09/20/2019 [...] Appearance Clear Urine pH 5.5 Ur Specific [place] 1.015 Urine Protein Negative Urine Glucose (UA) [...] <Electronically signed by Kit Gutierrez MD> 11/07/24 [facility]4 [facility] Work Phone: 1(757) 568-165405-22-2025 [place] [address] Psychiatry H&P Signed Patient: Barbra Claros MR#: [id number] : 1995 Acct:[id number] Age/Sex: 29 / F Adm Date: 5 Loc: Room: [address] [place] [address] Type: ADM IN Attending Dr: Kit Gutierrez [...] She was at an appointment with her ob-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 She was agreeable to treatment and hopes [...] Specifically last Monday, she was sent to [facility] due to panic attacks at which time they suggested that she voluntarily admit herself to 1 S[address] but said she was talked out of it by her mother. Has been wanting to increase her venlafaxine dose recently. Tells me that she does not have a PCP or mental provider in the community but her medications are managed by her search engineer Dr. Gurrola. This morning she denies SI, HI, delusions. 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 EHR [facility] Ovarian cyst removal of cyst in 09/20/2019 [...] List clean-up per request of Phys. EHR [facility] Surgical History History of partial hysterectomy Family [...] Appearance Clear Urine pH 5.5 Ur Specific [place] 1.015 Urine Protein Negative Urine Glucose (UA) [...] MD 5 1121 Signed By: 11/07/[address] [facility]05-22-2025 Evaluation note* Diagnosis Onset Date Resolution Status Admit Date Major depressive disorder acute November 07, 2024 1:28am Suicidal ideation acute October 1:28am [facility] Work Phone: 1(980) 995-706305-22-2025 Evaluation note* Diagnosis Onset Date Resolution Status Admit Date Major depressive disorder acute November 07, 2024 1:28am Suicidal ideation acute October 1:28am Major depressive disorder acute November 14, 2024 11:39pm Suicidal ideation acute October 11:39pm [facility] Work Phone: 1(466) 328-478105-22-2025 Evaluation note* Diagnosis Onset Date Resolution Status Admit Date Major depressive disorder resolved November 07, 2024 1:28am Suicidal ideation resolved October 1:28am Major depressive disorder resolved November 14, 2024 11:39pm Suicidal ideation resolved October 11:39pm [facility] Work Phone: 1(872) 814-249105-22-2025 Evaluation note* Diagnosis Onset Date Resolution Status [...] 11:05pm Suicidal ideation acute December 292024 11:05pm [facility] Work Phone: 1(653) 996-715705-22-2025 Evaluation note* Diagnosis Onset Date Resolution Status [...] 11:05pm Suicidal ideation acute December 292024 11:05pm [facility] Work Phone: 1(349) 773-784905-22-2025 Evaluation note* Diagnosis Onset Date Resolution Status [...] 11:05pm Suicidal ideation resolved December 292024 11:05pm [facility] Work Phone: [phone] Evaluation note* Diagnosis Onset Date Resolution Status [...] Suicidal ideation acute January 22, 2025 4:22pm [facility] Work Phone: 1(240) 924-258405-22-2025 Evaluation note* Diagnosis Onset Date Resolution Status [...] 2025 4:22pm Abdominal pain inactive January 2:02pm [facility] Work Phone: 1(693) 777-457505-21-2025 History of Present illness Narrative* Michael Gurrola [...] Review Audit Reviewed by Fe Silveira MA (Safety And Health Consultant) on 11/06/24 at 1553 Medication Order Taking? Sig Documenting Provider Last Dose Status hydrOXYzine HCl (Atarax) 50 MG tablet [id number] Yes TAKE 1 TABLET BY MOUTH THREE TIMES DAILY NEEDED FOR ITCHING Michael Gurrola MD Active venlafaxine XR (Effexor XR) 75 MG 24 hr capsule [id number] Take 75 mg by mouth in the morning. Take with meals. Michael Gurrola MD Active Allergies Allergen Reactions Chlorpheniramine Anaphylaxis and Other Dextromethorphan Other Dm-Apap-Cpm Angioedema and Swelling Throat Swells Pseudoephedrine Other Past Medical History: Diagnosis Date ADHD (attention deficit hyperactivity disorder) ([facility]) Anxiety History of being hospitalized blood transfusion, bronchitis, pneumonia Ovarian cyst PTSD (post-traumatic stress disorder) ([facility]) Past Surgical History: Procedure Laterality Date COSMETIC SURGERY nose age 4 CT ANGIOGRAM HEART CORONARY 01/13/2024 CT ANGIOGRAM TAVR 01/13/2024 HYSTERECTOMY OTHER SURGICAL HISTORY PELVIC LAPAROSCOPY 11/2019 with ovarian cystectomy SALPINGECTOMY Bilateral VAGINAL DELIVERY x3 2014, 2020, 2021 Physical Exam: Objective OBGyn Exam Assessment/Plan ICD-10-CM 1. Severe episode of recurrent major depressive disorder, without psychotic features (HCC) ([facility]) F33.2 I have encouraged the pt to go to [facility] and request to speak with a mental health counselor. I suspect she needs to be admitted. She will need certified social workers in health care to assist with childcare. She has assured me she will go No orders of the defined types were placed in this encounter. documented in this encounterJefferson Memorial HospitalMrcabdqcfh04-26-3932 History of Present illness Narrative* Michael Gurrola MD - 09/17/2024 11:45 AM EDT Pt had 4days of relief following last injection. By Monday morning the pain returned with intensityand she went to [place] [facility]. 12cc lidocaine again infiltrated into inferior extent of scar. Nevaeh well ICD-10-CM 1. Abdominal pain in female R10.9 2. Pelvic pain in female R10.[address] Reyes, pain specialist, to eval for potential nerve block documented in this encounterJefferson Memorial [id number] History of Present illness Narrative* Michael Gurrola [...] Review Audit Reviewed by Fe Silveira MA (Safety And Health Consultant) on 09/12/24 at 1302 Medication Order Taking? Sig Documenting Provider Last Dose Status venlafaxine XR (Effexor XR) 75 MG 24 hr capsule [id number] Take 75 mg by mouth in the morning. Take with meals. Michael Gurrola MD Active Allergies Allergen Reactions Chlorpheniramine Anaphylaxis and Other Dextromethorphan Other Dm-Apap-Cpm Angioedema and Swelling Throat Swells Pseudoephedrine Other Past Medical History: Diagnosis Date ADHD (attention deficit hyperactivity disorder) ([facility]) Anxiety History of being hospitalized blood transfusion, bronchitis, pneumonia Ovarian cyst PTSD (post-traumatic stress disorder) ([facility]) Past Surgical History: Procedure Laterality Date COSMETIC [...] placed in this encounter. documented in this encounterJefferson Memorial HospitalRsutztnycx33-21-1237 History of Present illness Narrative* Michael Gurrola [...] of a pelvicabscess. She was transferred to [place]. She underwent CT guided drainage. After 2 weeks sh recovered, but her RLQ pain continues. In 04/11, she was seen at [facility] and CT showed air [...] into the back She has been to [facility] twice in last week. Sono shows [...] Review Audit Reviewed by Fe Silveira MA (Safety And Health Consultant) on 07/10/24 at 1424 Medication Order Taking? Sig Documenting Provider Last Dose Status Discontinued 07/10/24 1424 Discontinued 07/10/24 1424 venlafaxine XR (Effexor XR) 75 MG 24 hr capsule [id number] Take 75 mg by mouth in the morning. Take with meals. Michael Gurrola MD Active Allergies Allergen Reactions Chlorpheniramine Anaphylaxis and Other Dextromethorphan Other Dm-Apap-Cpm Angioedema and Swelling Throat Swells Pseudoephedrine Other Past Medical History: Diagnosis Date ADHD (attention deficit hyperactivity disorder) ([facility]) Anxiety History of being hospitalized blood transfusion, bronchitis, pneumonia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 December 29, 2024 11:0 5pm MHP,suicidal January 22, 2025 4:2 2pm poss UTI February 08, 2025 2: 02pm R30.0,N39.0 February 08, 2025 2: 30pm Cough, congestion 3of3 February 24 9:56am March 18, 2025 10:00am Hemorrhagic Cyst Right Ovary March 9:59pm R Hemorrhagic Cyst March 23, 2025 10 :09pm Reason for Visit Admit Date Pain in tooth December 29, 2024 11:0 5pm Depression with suicidal ideation December 172024 11:05pm Suicidal ideation December 29, 2024 11:0 5pm Major depressive disorder, recurrent Aug ust 2024 4:22pm Suicidal ideation January 22, 2025 4:2 2pm Abdominal pain February 08, 2025 2: 02pm Bacterial pharyngitis February 24 9:56am UTI (urinary tract infection) February 24, 2025 9:56am Viral URI February 24, 2025 9:56am Chronic right lower quadrant pain Octobe r 2024 9:59pm Ovarian cyst March 19, 2025 9: 59pm Chronic right lower quadrant pain Octobe r 2024 10:09pm Ovarian cyst March 23, 2025 10 :09pm Chief Complaint Admit Date MHP December 29, 2024 11:0 5pm MHP,suicidal January 22, 2025 4:2 2pm poss UTI February 08, 2025 2: 02pm R30.0,N39.0 February 08, 2025 2: 30pm Cough, congestion 3of3 February 24 9:56am BH March 18, 2025 10:00am Hemorrhagic Cyst Right Ovary March 9:59pm R Hemorrhagic Cyst March 23, 2025 10 :09pm Abd pain March 26, 2025 9: 56am Chief Complaint Admit Date MHP,suicidal January 22, 2025 4:2 2pm poss UTI February 08, 2025 2: 02pm R30.0,N39.0 February 08, 2025 2: 30pm Cough, congestion 3of3 February 24 9:56am BH March 18, 2025 10:00am Hemorrhagic Cyst Right Ovary March 9:59pm R Hemorrhagic Cyst March 23, 2025 10 :09pm Abd pain March 26, 2025 9: 56am post surg comp. April 04, 2025 1 0:09am Reason for Visit Admit Date Major depressive disorder, recurrent Jan ust 2024 4:22pm Suicidal ideation January 22, 2025 4:2 2pm Abdominal pain February 08, 2025 2: 02pm Bacterial pharyngitis February 24 9:56am UTI (urinary tract infection) February 24, 2025 9:56am Viral URI February 24, 2025 9:56am Chronic right lower quadrant pain Octobe r 2024 9:59pm Ovarian cyst March 19, 2025 9: 59pm Chronic right lower quadrant pain Octobe r 2024 10:09pm Ovarian cyst March 23, 2025 10 :09pm Advance Directives Advance Directive Response Recorded Date/ [...] Communication Seth Bravo Spouse Primary Decision Maker [phone] (Home) Date Activated Date Inactivated Comments 11/27/2020 2:29 AM 11/30/2020 7:03 PM Date Activated Date Inactivated Comments 11/27/2020 2:29 AM 11/30/2020 7:03 PM Summary Purpose Family History Relationship Condition Age at Onset Recorded Date/T neeta Not Specified Hypertension Unknown brother Heart murmur Unknown Relationship [...] Chronic GERD Diarrhea, unspecified type Gas pain K21.7WGM-46-WZPrmipqh GERD R19.9FDZ-25-UXSdcrpmjk, unspecified type R14.4SIR-05-BYYtb pain Procedures WV ESOPHAGOGASTRODUODENOSCOPY TRANSORAL DIAGNOSTIC WV EGD TRANSORAL BIOPSY SINGLE/MULTIPLE WV EGD BALLOON DILATION ESOPHAGUS <30 MM DIAM EGD Kisha Rangel MD [address] [place] [address] [facility] [address] [place] [address] Referral ID Status Reason Start Date Expiration Date Visits Re quested Visits Authorized [id number] 1 1 Reason Comments Chest Pain Shortness [...] Adenomyosis [N80.03] Pelvic congestion syndrome [N94.89] Procedures WV LAPS TOTAL HYSTERECT 250 GM/< W/RMVL TUBE/OVARY HYSTERECTOMY VAGINAL LAPAROSCOPIC ROBOTIC ASSISTED - POSSIBLE BILATERAL SALPINGOOPHORECTOMY, POSSIBLE LAPAROSCOPIC COLPOPEXY Mickie Barrientos, DO [address] [place] [address] [facility] [address] [place] [address] Referral ID Status Reason Start Date Expiration Date Visits Re quested Visits Authorized [id number] 1 1 Reason Comments Abdominal Pain Pt [...] Pneumoperitoneum Perforated diverticulum Nicolette Wyman MD [address] [place] [address] [facility] [address] [place] [address] Referral ID Status Reason Start Date Expiration Date Visits Re quested Visits Authorized [id number] 1 1 Reason Onset Date Comments Pain 01/14/2024 Weakness - Generalized 01/14/2024 Reason Onset Date Comments Medication Request 01/13/2024 Reason Comments IR drain follow up Reason Comments Ovarian Cyst Er Follow-up Care Teams (unrecognized sec tion and content) Team Status: Active Member Role Status Dates PHYSICIAN NO FAMILY Primary Care Provider Active Team Status: Active [...] Active Start: January 22, 2025 Team Status: Inactive Member Role Status [...] NO FAMILY Primary Care Provider Active Start: March 18, 2025 Kit Gutierrez MD Attending Provider Active Start: March 18, 2025 Team Status: Inactive Member Role Status Dates NON STAFF Primary Care Provider Active Start: March 19, 2025 End: March 20, 2025 Michael Gurrola MD Admit Provider Active Start: 2024 End: March 20, 2025 Michael Gurrola MD Attending Provider Active Star t: March 19, 2025 End: March 20, 2025 Team Status: Inactive Member Role Status Dates NON STAFF Primary Care Provider Active Start: March 23, 2025 End: March 25, 2025 Michael Gurrola MD Admit Provider Active Start: O [email or web address] End: March 25, 2025 Michael Gurrola MD Attending Provider Active Star t: March 23, 2025 End: March 25, 2025 Team Status: Inactive Member Role Status Dates Goyo Epps DO Emergency Provider Active St art: March 26, 2025 End: March 26, 2025 PHYSICIAN NO FAMILY Primary Care Provider Active Start: March 26, 2025 End: March 26, 2025 Team Status: Inactive Member Role Status [...] Status Sarika Gurrola MD Attending Provider Active Team Status: [...] Monahan DO Admit Provider, Attending Provider Active Bottom Liner Relationship Specialty Start Date End Date Melida Huang APRN [facility] [address] [place] [address] PCP - General Nurse Practitioner 07/14/23 Bottom Liner Relationship Specialty Start Date End Date Melida Huang APRN [facility] [address] [place] [address] PCP - General Nurse Practitioner 07/14/23 Bottom Liner Relationship Specialty Start Date End Date Melida Huang APRN [facility] [address] [place] [address] PCP - General Nurse Practitioner 07/14/23 Team Status: Inactive Member Role Status Dates PHYSICIAN NO FAMILY Primary Care Provider Active Start: January 08, 2024 End: January 08, 2024 Nikhil Quiñones PA-C Emergency Provider Active Start: January 08, 2024 End: January 08, 2024 Bottom Liner Relationship Specialty Start Date End Date Melida Huang APRN [facility] [address] [place] [address] PCP - General Nurse Practitioner 07/14/23 Bottom Liner Relationship Specialty Start Date End Date Melida Huang APRN [facility] [address] [place] [address] PCP - General Nurse Practitioner 07/14/23 Bottom Liner Relationship Specialty Start Date End Date Melida Huang APRN [facility] [address] [address] PCP - General Nurse Practitioner 07/14/23 Bottom Liner Relationship Specialty Start Date End Date Melida Huang [facility] [address] [address] PCP - General Nurse Practitioner 07/14/23 Bottom Liner Relationship Specialty Start Date End Date ReinaMelida givens [facility] [address] [place] [facility] [address] PCP - General Nurse Practitioner 07/14/23 Bottom Liner Relationship Specialty Start Date End Date ReinaMelida [facility] [address] [place] [address] PCP - General Nurse Practitioner 07/14/23 Bottom Liner Relationship Specialty Start Date End Date Melida Huang [facility] [address] [address] PCP - General Nurse Practitioner 07/14/23 Bottom Liner Relationship Specialty Start Date End Date Unallocated, Marie Ivan MD [address] [place] [address] PCP - General 12/01/22 Michael Gurrola MD [address] [facility] [address] [place] [address] Obstetrics and Gynecology 03/08/23 Bottom Liner Relationship Specialty Start Date End Date Unallocated, Marie Ivan MD [address] [place] [address] PCP - General 12/01/22 Michael Gurrola MD [address] [facility] [place] [address] Obstetrics and Gynecology 03/08/23 Team Status: Inactive Member Role Status Dates PHYSICIAN NO FAMILY Primary Care Provider Active Start: July 22, 2024 End: July 22, 2024 Fe Cruz APRN Attending Provider Active S tart: July 22, 2024 End: July 22, 2024 Bottom Liner Relationship Specialty Start Date End Date Melida Huang [facility] [address], [place] [address] PCP - General Family Medicine 01/11/22 Bottom Liner Relationship Specialty Start Date End Date Melida Huang [facility] [address], [place] [address] PCP - General Family Medicine 01/11/22 Bottom Liner Relationship Specialty Start Date End Date Melida Huang [facility] [address], [place] [address] PCP - General Family Medicine 01/11/22 Bottom Liner Relationship Specialty Start Date End Date Melida Huang [facility] [address], [place] [address] PCP - General Family Medicine 01/11/22 Bottom Liner Relationship Specialty Start Date End Date Melida Huang [facility] [address], [place] [address] PCP - General Family Medicine 01/11/22 Bottom Liner Relationship Specialty Start Date End Date No Pcp, [place] [address] PCP - General Family Medicine 02/07/24 Bottom Liner Relationship Specialty Start Date End Date Unallocated, Marie Ivan MD [address] [place] [address] PCP - General 12/01/22 Michael Gurrola MD [address] [place] [address] Obstetrics and Gynecology 03/08/23 Bottom Liner Relationship Specialty Start Date End Date Unallocated, Marie Ivan MD [address] [place] [address] PCP - General 12/01/22 Michael Gurrola MD [address] [facility] [address] [place] [address] Obstetrics and Gynecology 03/08/23 Bottom Liner Relationship Specialty Start Date [place] Unallocated, [place] [address] [place], [place] [address] [address] PCP - General 12/01/22 Michael Gurrola MD [address] [place] [address] Obstetrics and Gynecology 03/08/23 Team Status: Active Member Role Status Dates PHYSICIAN NO FAMILY Primary Care Provider Active Start: November 14, 2024 Goyo Epps DO Emergency Provider Active St art: November 14, 2024 Dashawn Moreno MD Admit Provider, Attending Provider Active Start: November 14, 2024 Team Status: Inactive Member Role Status Dates PHYSICIAN NO FAMILY Primary Care Provider Active Start: November 14, 2024 End: November 16, 2024 Goyo Epps DO Emergency Provider Active St art: November 14, 2024 End: November 16, 2024 Dashawn Moreno MD Admit Provider, Attending Provider Active Start: November 14, 2024 End: November 16, 2024 Team Status: Active Member Role Status Dates PHYSICIAN NO FAMILY Primary Care Provider Active Start: November 15, 2024 Goyo Epps , DO Emergency Provider Active St art: [...] November 14, 2024 End: November 16, 2024 Goyo Epps , DO Emergency Provider Active St art: November 14, 2024 End: November 16, 2024 Dashawn Moreno MD Admit Provider Active Start: November 14, 2024 End: November 16, 2024 Dashawn Moreno MD Attending Provider Active St art: November 14, 2024 End: November 16, 2024 Team Status: Active Member Role Status Dates PHYSICIAN NO FAMILY Primary Care Provider Active Start: November 15, 2024 Goyo Epps , DO Emergency Provider Active St art: [...] Active Start: January 27, 2025 Team Status: Active Member Role Status Dates NON STAFF Primary Care Provider Active Team Status: Active Member Role Status Dates PHYSICIAN NO FAMILY Primary Care Provider Active Start: February 13, 2025 Kit Gtuierrez MD Attending Provider Active Start: February 13, 2025 Team Status: Active Member Role Status Dates PHYSICIAN NO FAMILY Primary Care Provider Active Start: February 24, 2025 Kit Gutierrez MD Attending Provider Active Start: February 24, 2025 Bottom Liner Relationship Specialty Start Date End Date Unallocated, Marie Ivan, [address] [place] [address] PCP - General 12/01/22 Michael Gurrola MD [address] [place] [address] Obstetrics and Gynecology 03/08/23 Team Status: Active Member Role/Relationship Status Dates PHYSICIAN NO FAMILY Primary Care Provider Active Team Status: Active Member Role/Relationship Status Dates PHYSICIAN NO FAMILY Primary Care Provider Active Start: January 22, 2025 Duane Simons DO Emergency Provider Active Start: January 22, 2025 Dashawn Moreno MD Admit Provider Active Start: January 22, 2025 Dashawn Moreno MD Attending Provider Active St art: January 22, 2025 Dashawn Moreno MD Other Provider Active Start: January 22, 2025 Team Status: Inactive Member Role/Relationship Status Dates PHYSICIAN NO FAMILY Primary Care Provider Active Start: February 08, 2025 End: February 08, 2025 Fe Cruz APRN Attending Provider Active S tart: February 08, 2025 End: February 08, 2025 Team Status: Inactive Member Role/Relationship Status Dates eF Cruz APRN Attending Provider Active S tart: February 08, 2025 End: February 08, 2025 Team Status: Inactive Member Role/Relationship Status Dates Fe Cruz APRN Attending Provider Active S tart: February 24, 2025 End: February 24, 2025 NON STAFF Primary Care Provider Active Start: February 24, 2025 End: February 24, 2025 Team Status: Active Member Role/Relationship Status Dates PHYSICIAN NO FAMILY Primary Care Provider Active Start: March 18, 2025 Kit Gutierrez MD Attending Provider Active Start: March 18, 2025 Team Status: Inactive Member Role/Relationship Status Dates NON STAFF Primary Care Provider Active Start: March 19, 2025 End: March 20, 2025 Michael Gurrola MD Admit Provider Active Start: [facility] 2024 End: March 20, 2025 Michael Gurrola MD Attending Provider Active Star t: March 19, 2025 End: March 20, 2025 Team Status: Inactive Member Role/Relationship Status Dates NON STAFF Primary Care Provider Active Start: March 23, 2025 End: March 25, 2025 Michael Gurrola MD Admit Provider Active Start: O ct2024 End: March 25, 2025 Michael Gurrola MD Attending Provider Active Star t: March 23, 2025 End: March 25, 2025 Team Status: Inactive Member Role/Relationship Status Dates Goyo Epps DO Emergency Provider Active St art: March 26, 2025 End: March 26, 2025 PHYSICIAN NO FAMILY Primary Care Provider Active Start: March 26, 2025 End: March 26, 2025 Team Status: Inactive Member Role/Relationship Status Dates PHYSICIAN NO FAMILY Primary Care Provider Active Start: April 04, 2025 End: April 04, 2025 Goyo Epps DO Emergency Provider Active St art: April 04, 2025 End: April 04, 2025 Goals (unrecognized section and content) Goals [...] Inhalation, ONCE, 1 dose, On Mon08/15/23 at 2015, Initiate RT Bronchodilator Protocol: No 2032 (Given - Provid er: Carmita Tadeo RCP) Scheduled Medication Order 11/18/2023 11/19/2023 11/20/2023 ceFAZolin (ANCEF) 2000 mg in 0.9% sodium chloride 100 mL IVPB (COMPLETED) 2,000 mg, IntraVENous, BALL ENDER TO O.R., 1 dose, On Mon11/20/23 at [...] ider: Katherine Zhang RN)1356 (NoRateChange - Provider: KYLEE Wilde CRNA)1505 (Paused - Provider: KYLEE Umanzor CRNA - Comment: Switch to gravity)1506 (New Bag - Provider: KYLEE Umanzor CRNA)1530 (Anesthesia Volume Adjustment - Provider: KYLEE Umanzor CRNA) PRN Medication Order 11/18/2023 11/19/2023 11/20/2023 0.9 [...] 2141, Other 2140 (Given - Provider: Radha Ponce Shock) Scheduled Medication Order 02/05/2024 02/06/2024 02/07/2024 HYDROmorphone HCl PF (DILAUDID) injection 1 mg (COMPLETED) 1 mg, IntraVENous, ONCE, 1 dose, On 02/07/24 at 1430, If oral and IV narcotics [...] Until Discontinued, Do not crush or break. 2133 (Given - Provider: Madeleine Brewer RN) 0835 (Given - Provider: Juanis Contreras RN)2046 (Given - Provider: Ivy Schmid, RN) 0736 (Given - Provider: Juanis Contreras [...] DAILY, First dose (after last modification) on 04/14/24 at 0900, Until Discontinued 0817 (Given - Provider: Ayana Rodriguez RN)1402 (Given - Provider: Ayana Rodriguez RN)2133 (Given - Provider: Madeleine Brewer RN) 0835 (Given - Provider: Juanis Contreras RN)1355 (Given - Provider: Juanis Contreras, RN)2046 (Given - Provider: Ivy Schmid RN) [...] Provider: Madeleine Brewer RN)1950 (Stopped - Provider: Madelenie Brewer RN) sodium chloride flush 0.9 % injection 10 mL 10 mL, IntraVENous, EVERY 12 HOURS SCHEDULED (2 times per day), First dose on Mariajose 04/11/24 at 0900, Until Discontinued 0817 (Given - Provider: Ayana Rodriguez RN)191 (Given - Provider: Madeleine Brewer RN) 0836 (Given - Provider: Juanis Contreras RN)2048 (Given - Provider: Ivy Schmid RN) 0740 (Given - Provider: Juanis Contreras RN)2100 (Due) venlafaxine (EFFEXOR XR) extended release capsule 75 mg 75 mg, Oral, DAILY WITH BREAKFAST, First dose on 04/14/24 at 0815, Until Discontinued, Do not crush or break. 0817 (Given - Provider: Ayana Rodriguez RN) 0835 (Given - Provider: Juanis Contreras RN) 0736 (Given - Provider: Juanis Contreras RN) Continuous Medication Order 04/14/2024 04/15/2024 04/16/2024 dextrose 5 % and 0.45 % NaCl with KCl 20 mEq infusion (CANCELED) IntraVENous, at 100 mL/hr, CONTINUOUS, Starting on Mon04/12/24 at 0715, On hold since Mon04/15/2024 at 0621 until manually unheld 0107 (New Bag - Provider: Ivy Schmid RN)1128 (New Bag - Provider: Ayana Rodriguez RN)2139 (New Bag - Provider: Madeleine Brewer RN) 0621 (Held by provider - Provider: Nicolette Wyman MD - Reason: Other)0800 (Stopped - Provider: Juanis Contreras RN)0904 (Unheld by provider - Provider: Brandee Rivera, KYLEE - ROUSTABOUT HAND) PRN Medication Order 04/14/2024 04/15/2024 04/16/2024 0.9 [...] Rodriguez RN) 0734 (Given - Provider: Juanis Contreras RN) [...] hour of each other unless specifically ordered. 1637 (See Alternative - Provider: Ayana Rodriguez RN)2133 [...] hour of each other unless specifically ordered. 1637 (Given - Provider: Ayana Rodriguez RN)2133 (Given - Provider: Madeleine Brewer RN) 0254 (Given - Provider: Madeleine Brewer RN) 0011 [...] Rodriguez RN)1417 (See Alternative - Provider: Ayana Rodriguez, HENNA) 0100 (See Alternative - Provider: Madeleine Brewer [...] Brewer RN)0725 (See Alternative - Provider: Juanis Cotnreras RN)1246 (See Alternative - Provider: Juanis Contreras, RN)1847 (See Alternative - Provider: Ivy Schmid [...] Ivy Schmid RN)0816 (Given - Provider: Ayana Rodriguez, RN)1401 (Given - Provider: Ayana Rodriguez, RN)1925 (Given - Provider: Madeleine Brewer, RN) 0100 (Given - Provider: Madeleine Brewer, RN)0725 (Given - Provider: Juanis Contreras RN)1246 (Given - Provider: Juanis Contreras RN)1847 (Given - Provider: Ivy Schmid RN)2232 (Given - Provider: Ivy Schmdi RN) 0328 (Given - Provider: Ivy Schmid [...] 4) 40 mEq, Oral, PRN, Starting on Mon04/14/24 at 0826, Until Mon04/18/24 at 0825, Per Potassium Replacement Protocol, May [...] 4) 10 mEq, IntraVENous, PRN, Starting on Mon04/14/24 at 0826, Until Mon04/18/24 at 0825, at 100 mL/hr, Per Potassium [...] DATE CREATED AUTHOR AUTHOR'S ORGANIZ ATION 01/04/2024 [facility] DATE CREATED AUTHOR AUTHOR'S ORGANIZ ATION 01/20/2024 [facility] DATE CREATED AUTHOR AUTHOR'S ORGANIZ ATION 01/21/2024 [facility] DATE CREATED AUTHOR AUTHOR'S ORGANIZ ATION 02/14/2024 [facility] DATE CREATED AUTHOR AUTHOR'S ORGANIZ ATION 07/22/2024 [facility] DATE CREATED AUTHOR AUTHOR'S ORGANIZ ATION 09/18/2024 [facility] DATE CREATED AUTHOR AUTHOR'S ORGANIZ ATION 11/13/2024 [facility] DATE CREATED AUTHOR AUTHOR'S ORGANIZ ATION 03/27/2025 [facility] Ordered Prescriptions (unrec ognized section [...] BE BASED ON THE PRIMARY CLINICAL RECORDS. [employer] provides no warranty or guarantee of the accuracy or completeness of information in this document.
--- NOTE | 2025-04-04 12:40 | ED.GENADUL1 ---
HPI HPI - General Adult General Chief complaint: Nausea/Vomiting/Diarrhea Stated complaint: VOMITING, BLOOD IN STOOL, ABDOMINAL PAIN Time Seen by Provider: 04/04/25 11:56 Source: patient Mode of arrival: walk-in Limitations: no limitations History of Present Illness HPI narrative: 29-year-old female presented to the emergency department for abdominal pain. She is postop day #5 from right oophorectomy. She has previously had hysterectomy and left oophorectomy. She points to the mid abdomen to indicate the area of pain. She states she saw some dark red blood in her stool and then it became bright red and then it cleared up and she has not had any more. No fever or vomiting. She has been nauseous. Related Data Home Medications ?Medication ?Instructions ?Recorded ?Confirmed oxcarbazepine 300 mg tablet 450 mg PO BEDTIME 12/21/24 04/04/25 buspirone 15 mg tablet 15 mg PO TID 03/19/25 04/04/25 cariprazine 4.5 mg capsule 4.5 mg PO DAILY 03/19/25 04/04/25 (Vraylar) hydroxyzine pamoate 50 mg capsule 50 mg PO TID PRN anxiety 03/19/25 04/04/25 trazodone 150 mg tablet 150 mg PO QPM PRN sleep 03/19/25 04/04/25 venlafaxine 150 mg 150 mg PO DAILY 03/19/25 04/04/25 capsule,extended release 24 hr venlafaxine 37.5 mg 37.5 mg PO DAILY 03/19/25 04/04/25 capsule,extended release 24 hr estradiol 0.1 mg/24 hr semiweekly 04/04/25 transdermal patch (Lilia) hydromorphone 2 mg tablet mg 04/04/25 ibuprofen 600 mg tablet mg 04/04/25 Previous Rx's ?Medication ?Instructions ?Recorded hydrocodone 5 mg-acetaminophen 325 1 tab PO Q6H PRN pain 5 days #20 04/04/25 mg tablet tabs ondansetron 4 mg disintegrating 4 mg PO Q6H PRN nausea and 04/04/25 tablet vomiting #20 tabs Allergies Allergy/AdvReac Type Severity Reaction Status Date / Time chlorpheniramine (From Allergy Severe Swelling Verified 04/04/25 11:53 Triaminic Cold and Cough) of Lip/Tongue/Throat dextromethorphan (From Allergy Severe Swelling Verified 04/04/25 11:53 Triaminic Cold and Cough) of Lip/Tongue/Throat pseudoephedrine (From Allergy Severe Swelling Verified 04/04/25 11:53 Triaminic Cold and Cough) of Lip/Tongue/Throat Opioid HPI Opioid Management Most Recent Opioid Data: Last Pain Scale 9 Today, 13:31 Last MAR Pain Assessment Today, 13:31 Ur Phencyclidine Scrn, (NEGATIVE) Negative 01/27/25, 12:40 Review of Systems ROS Narrative A ten point review of systems is negative except as noted above. PFSH PFSH Surgical History History of appendectomy ?Z90.49 - Acquired absence of other specified parts of digestive tract (ICD-10) History of removal of ovarian cyst ?Z98.890 - Other specified postprocedural states (ICD-10) ?Z87.42 - Personal history of other diseases of the female genital tract (ICD-10) History of hysterectomy ?Z90.710 - Acquired absence of both cervix and uterus (ICD-10) Social History Little interest or pleasure in doing things: not at all Feeling down, depressed, or hopeless: not at all Exam Narrative Exam Narrative: Nurses note and vital signs reviewed and patient is not hypoxic. General:The patient appears well and in no apparent distress.Patient is resting comfortably on cart. Skin:Warm, dry, no pallor noted.There is no rash noted. Head:Normocephalic, atraumatic Eye: Normal conjunctiva, no drainage Ears, Nose, Mouth, and Throat: oral mucosa is moist. Nares patent. Cardiovascular:Regular Rate and Rhythm Respiratory:Patient is in no distress, no accessory muscle use, lungs are clear to auscultation, no wheezing, rales or rhonchi Back:non-tender GI: Soft. Tenderness present just below the umbilicus. Surgical wounds are healing well, no dehiscence or drainage Musculoskeletal: The patient has no evidence of calf tenderness, no pitting edema, symmetrical pulses noted bilaterally Neurological: Awake and alert Psychiatric:Cooperative Constitutional Vital Signs, click to edit/add: Last Vital Signs Temp 98.0 F 04/04/25 11:56 Pulse 101 H 04/04/25 11:56 Resp 15 04/04/25 11:56 BP 101/61 04/04/25 13:41 Pulse Ox 97 04/04/25 13:41 O2 Del Method Room Air 04/04/25 11:56 Course Vital Signs Vital signs: Vital Signs Temperature 98.0 F 04/04/25 11:56 Pulse Rate 101 H 04/04/25 11:56 Respiratory Rate 15 04/04/25 11:56 Blood Pressure 114/80 04/04/25 11:56 Pulse Oximetry 99 04/04/25 11:56 Oxygen Delivery Method Room Air 04/04/25 11:56 Temperature 98.0 F 04/04/25 11:56 Pulse Rate 101 H 04/04/25 11:56 Respiratory Rate 15 04/04/25 11:56 Blood Pressure 101/61 04/04/25 13:41 Pulse Oximetry 97 04/04/25 13:41 Oxygen Delivery Method Room Air 04/04/25 11:56 Medical Decision Making MDM Narrative Medical decision making narrative: CT scan shows no acute findings. There is some hemoperitoneum from her surgery but there is no abscess and she is discharged home with prescriptions for Fifty Six and Zofran. Treatment diagnosis and follow-up were discussed with the patient. Differential Diagnosis Differential Diagnosis: Postoperative pain, abscess Lab Data Lab results reviewed: Yes I reviewed the patient's lab results Labs: Lab Results 04/04/25 04/04/25 Range/Units 12:30 12:37 WBC 6.4 (4.0-11.0) 10^3/uL RBC 3.90 L (4.20-5.40) 10^6/uL Hgb 11.3 L (12.0-16.0) g/dL Hct 34.4 L (36.0-48.0) % MCV 88.2 (81.0-99.0) fL MCH 29.0 (26.7-34.0) pg MCHC 32.8 (29.9-35.2) g/dL RDW 13.3 (11.0-15.0) % Plt Count 305 (150-450) 10^3/uL MPV 9.5 (9.5-13.5) fL Neut % (Auto) 64.1 (43.0-75.0) % Lymph % (Auto) 27.6 (20.5-60.0) % [place] % (Auto) 7.2 (1.7-12.0) % Eos % (Auto) 0.5 L (0.9-7.0) % Baso % (Auto) 0.3 (0.2-2.0) % Neut # (Auto) 4.1 (1.4-6.5) 10^3/uL Lymph # (Auto) 1.8 (1.2-3.8) 10^3/uL [place] # (Auto) 0.5 (0.3-0.8) 10^3/uL Eos # (Auto) 0.0 (0.0-0.7) 10^3/uL Baso # (Auto) 0.0 (0.0-0.1) 10^3/uL Abs Immat Gran (auto) 0.02 (0.00-0.03) 10^3/uL Imm/Tot Granulo (auto) 0.3 (0.0-0.5) % Sodium 141 (136-145) mmol/L Potassium 3.6 (3.5-5.1) mmol/L Chloride 106 (98-107) mmol/L Carbon Dioxide 27.8 (21.0-32.0) mmol/L Anion Gap 10.8 BUN 6.0 L (7.0-18.0) mg/dL Creatinine 0.59 (0.55-1.02) mg/dL Est GFR ( Amer) >60 (>=60 mL/min/1.73m^2) Est GFR (Non-Af Amer) >60 (>=60 mL/min/1.73m^2) BUN/Creatinine Ratio 10.2 Glucose 89 (74-106) mg/dL Calcium 8.5 (8.5-10.1) mg/dL Urine Color Yellow (YELLOW) Urine Clarity Clear (CLEAR) Urine pH 7.0 (5.0-9.0) Ur Specific [place] 1.010 (1.005-1.025) Urine Protein Negative (NEG/TRACE) mg/dL Urine Glucose (UA) Negative (NEGATIVE) mg/dL Urine Ketones Negative (NEGATIVE) mg/dL Urine Occult Blood Trace-i (NEGATIVE) Urine Nitrite Negative (NEGATIVE) Urine Bilirubin Negative (NEGATIVE) Urine Urobilinogen 0.2 (0.2-1.0) EU/dL Ur Leukocyte Esterase Negative (NEGATIVE) Urine RBC 0-2 (0-2) #/HPF Urine WBC None seen (NONE SEEN) #/HPF Ur Squamous Epith Cells Few A (NONE/RARE) #/LPF Urine Crystals None seen (None Seen) #/HPF Urine Bacteria Trace A (NONE SEEN) #/HPF Urine Casts None seen (NONE SEEN) #/LPF Urine Mucus Trace A (NONE SEEN) Imaging Data CT scan - abdomen: Radiologist's impression: ITS Impressions Abdomen/Pelvis CT 04/04/25 12:15 IMPRESSION: Soft tissue thickening involving the right adnexa. No fluid collection is seen to suggest abscess. Trace hemoperitoneum is seen involving the pelvis. Impression dictated by: Leonard Maria Jr., D.O. 04/04/2025 1:23 PM Dictation Location: [place] [address] Electronically authenticated by: [id number] Y Date: 04/04/2025 13:23 ADDENDUM: 04/04/25 1403 IMPRESSION: Soft tissue thickening involving the right adnexa. No fluid collection is seen to suggest abscess. Trace hemoperitoneum is seen involving the pelvis. Impression dictated by: Leonard Maria Jr., D.O. 04/04/2025 1:23 PM Dictation Location: [place] [address] Electronically authenticated by: [id number] Y Date: 04/04/2025 13:23 Discharge Plan Discharge Chief Complaint: Nausea/Vomiting/Diarrhea Clinical Impression: Post-operative pain Patient Disposition: Home, Self-Care Time of Disposition Decision: 13:54 Condition: Good Mode of Transportation: Private Vehicle Prescriptions / Home Meds: New hydrocodone-acetaminophen 5-325 mg tablet 1 tab PO Q6H PRN (Reason: pain) 5 Days Qty: 20 0RF ondansetron 4 mg tablet,disintegrating 4 mg PO Q6H PRN (Reason: nausea and vomiting) Qty: 20 0RF No Action estradiol [Lilia] 0.1 mg/24 hr patch semiweekly hydromorphone 2 mg tablet ibuprofen 600 mg tablet oxcarbazepine 300 mg tablet 450 mg PO BEDTIME buspirone 15 mg tablet 15 mg PO TID Vraylar 4.5 mg capsule 4.5 mg PO DAILY hydroxyzine pamoate 50 mg capsule 50 mg PO TID PRN (Reason: anxiety) trazodone 150 mg tablet 150 mg PO QPM PRN (Reason: sleep) venlafaxine 150 mg capsule,extended release 24hr 150 mg PO DAILY venlafaxine 37.5 mg capsule,extended release 24hr 37.5 mg PO DAILY Print Language: Irish Instructions: Pain Management After Surgery (DC) Referrals: Physician,Non-Staff, MD [Primary Care Provider] - 1 week Discharge Date/Time: 04/04/25 14:24
[2025-04-04 12:58] LABS: Hematocrit 34.4 % (36.0-48.0); Hemoglobin 11.3 g/dL (12.0-16.0); Immature Granulocytes Abs Auto 0.02 10^3/uL (0.00-0.03); Immature Granulocytes Pct Auto 0.3 % (0.0-0.5); Lymphocytes Absolute Auto 1.8 10^3/uL (1.2-3.8); Mean Corpuscular HGB Conc 32.8 g/dL (29.9-35.2); Mean Corpuscular Hemoglobin 29.0 pg (26.7-34.0); Mean Corpuscular Volume 88.2 fL (81.0-99.0); Platelet Count 305 10^3/uL (150-450); Red Blood Count 3.90 10^6/uL (4.20-5.40); White Blood Count 6.4 10^3/uL (4.0-11.0)
[2025-04-04 13:00] LABS: Glucose Urine UA NEGATIVE (NEGATIVE)
[2025-04-04 13:07] LABS: Cast Seen? NONE SEEN #/LPF (NONE SEEN); Crystals Seen? None Seen #/HPF (None Seen)
[2025-04-04 13:10] LABS: Anion Gap 10.8; Blood Urea Nitrogen 6.0 mg/dL (7.0-18.0); Calcium 8.5 mg/dL (8.5-10.1); Carbon Dioxide 27.8 mmol/L (21.0-32.0); Chloride 106 mmol/L (98-107); Estimated GFR (African America >60 (>=60 mL/min/1.73m^2); Estimated GFR (Non-African Ame >60 (>=60 mL/min/1.73m^2); Glucose 89 mg/dL (74-106); Potassium 3.6 mmol/L (3.5-5.1); Sodium 141 mmol/L (136-145)
[2025-04-04] MEDS: MORPHINE SULFATE 4 MG/ML VIAL IV (13:31)
[2025-04-04 13:41] VITALS: BP 101/61; O2SAT 97
== END 2025-04-04 14:24 | disposition home or self-care (01) ==
PROVIDERS: Emergency Provider Emergency Medicine
DX: G89.18 Other acute postprocedural pain (principal); Z90.722 Acquired absence of ovaries, bilateral; Z90.710 Acquired absence of both cervix and uterus
CPT/HCPCS: 36415; 74177; 80048; 81001; 85025; 96374; 96375; 99285; J2270; J2405; Q9967

== ENCOUNTER 2025-05-13 21:45 | Emergency (ER) | payer OTHER, SELFPAY ==
[2025-05-13 22:32] VITALS: BP 124/82; PULSE 90; TEMP 36.8; O2SAT 100
--- NOTE | 2025-05-13 23:21 | ED.BACK1 ---
HPI HPI - Back Pain/Injury General Chief Complaint: Back Pain/Injury Stated Complaint: BACK PAIN Time Seen by Provider: 05/13/25 22:38 History of Present Illness HPI Narrative: past history of sciatica. Presents complaining of pain left buttocks down the back of her left leg for past 2-3 days. No weakness of her extremities. No fever or abdominal pain. Has tried NSAIDs without relief Related Data Home Medications ?Medication ?Instructions ?Recorded ?Confirmed oxcarbazepine 300 mg tablet 450 mg PO BEDTIME 12/21/24 04/04/25 buspirone 15 mg tablet 15 mg PO TID 03/19/25 04/04/25 cariprazine 4.5 mg capsule 4.5 mg PO DAILY 03/19/25 04/04/25 (Vraylar) hydroxyzine pamoate 50 mg capsule 50 mg PO TID PRN anxiety 03/19/25 04/04/25 trazodone 150 mg tablet 150 mg PO QPM PRN sleep 03/19/25 04/04/25 venlafaxine 150 mg 150 mg PO DAILY 03/19/25 04/04/25 capsule,extended release 24 hr venlafaxine 37.5 mg 37.5 mg PO DAILY 03/19/25 04/04/25 capsule,extended release 24 hr estradiol 0.1 mg/24 hr semiweekly 04/04/25 transdermal patch (Lilia) hydromorphone 2 mg tablet mg 04/04/25 ibuprofen 600 mg tablet mg 04/04/25 Previous Rx's ?Medication ?Instructions ?Recorded hydrocodone 5 mg-acetaminophen 325 1 tab PO Q6H PRN pain 5 days #20 04/04/25 mg tablet tabs ondansetron 4 mg disintegrating 4 mg PO Q6H PRN nausea and 04/04/25 tablet vomiting #20 tabs Allergies Allergy/AdvReac Type Severity Reaction Status Date / Time chlorpheniramine (From Allergy Severe Swelling Verified 04/04/25 11:53 Triaminic Cold and Cough) of Lip/Tongue/Throat dextromethorphan (From Allergy Severe Swelling Verified 04/04/25 11:53 Triaminic Cold and Cough) of Lip/Tongue/Throat pseudoephedrine (From Allergy Severe Swelling Verified 04/04/25 11:53 Triaminic Cold and Cough) of Lip/Tongue/Throat Opioid HPI Opioid Management Most Recent Opioid Data: Last Pain Scale 8 05/13/25, 22:34 Ur Phencyclidine Scrn, (NEGATIVE) Negative 01/27/25, 12:40 Review of Systems ROS Status of ROS 10 or more systems reviewed and unremarkable except as noted in history and below PFSH PFS Surgical History History of appendectomy ?Z90.49 - Acquired absence of other specified parts of digestive tract (ICD-10) History of removal of ovarian cyst ?Z98.890 - Other specified postprocedural states (ICD-10) ?Z87.42 - Personal history of other diseases of the female genital tract (ICD-10) History of hysterectomy ?Z90.710 - Acquired absence of both cervix and uterus (ICD-10) Social History Little interest or pleasure in doing things: not at all Feeling down, depressed, or hopeless: not at all Exam Constitutional Vital Signs, click to edit/add: Last Vital Signs Temp 98.3 F 05/13/25 22:32 Pulse 90 05/13/25 22:32 Resp 18 05/13/25 22:32 BP 124/82 05/13/25 22:32 Pulse Ox 100 05/13/25 22:32 O2 Del Method Room Air 05/13/25 22:32 Common normals: no apparent distress, average body habitus, oriented x3, no limitations, healthy appearing, alert and well nourished [facility] Common normals: normocephalic and head/scalp atraumatic Eye Common normals: PERRL, EOMs intact bilaterally and conjunctivae normal Respiratory Common normals: normal respiratory effort, no retractions, no use of accessory muscles and clear to auscultation bilaterally Cardio Common normals: regular rate, regular rhythm, S1 normal heart sound and S2 normal heart sound GI Common normals: Normal to inspection, nondistended, normoactive bowel sounds present, soft to palpation and non-tender Back & Pelvis Common normals: no CVA tenderness, thoracic and lumbar spine normal to inspection and no thoracic nor lumbar tenderness Extremity Common normals: normal to inspection and full ROM Neuro Common normals: oriented x3, CN's II-XII intact bilaterally, moves all extremities and no focal motor deficits Psych Appearance: grossly normal Course Vital Signs Vital signs: Vital Signs Temperature 98.3 F 05/13/25 22:32 Pulse Rate 90 05/13/25 22:32 Respiratory Rate 18 05/13/25 22:32 Blood Pressure 124/82 05/13/25 22:32 Pulse Oximetry 100 05/13/25 22:32 Oxygen Delivery Method Room Air 05/13/25 22:32 Temperature 98.3 F 05/13/25 22:32 Pulse Rate 90 05/13/25 22:32 Respiratory Rate 18 05/13/25 22:32 Blood Pressure 124/82 05/13/25 22:32 Pulse Oximetry 100 05/13/25 22:32 Oxygen Delivery Method Room Air 05/13/25 22:32 MDM - Back Pain/Injury MDM Narrative Medical decision making narrative: past history of sciatica. Presents with pain left buttocks radiating down her leg. No leg weakness. No bowel or bladder issues. No fever. CBC, BMP and CRP normal. Patient treated in the department and is now feeling better. Discharged home to follow up with her doctor. Given a prescription for prednisone and norflex ER Lab Data Labs: Lab Results 05/13/25 Range/Units 23:41 WBC 7.3 (4.0-11.0) 10^3/uL RBC 4.41 (4.20-5.40) 10^6/uL Hgb 12.9 (12.0-16.0) g/dL Hct 39.2 (36.0-48.0) % MCV 88.9 (81.0-99.0) fL MCH 29.3 (26.7-34.0) pg MCHC 32.9 (29.9-35.2) g/dL RDW 12.5 (11.0-15.0) % Plt Count 253 (150-450) 10^3/uL MPV 10.2 (9.5-13.5) fL Neut % (Auto) 37.2 L (43.0-75.0) % Lymph % (Auto) 52.3 (20.5-60.0) % [place] % (Auto) 8.8 (1.7-12.0) % Eos % (Auto) 1.0 (0.9-7.0) % Baso % (Auto) 0.4 (0.2-2.0) % Neut # (Auto) 2.7 (1.4-6.5) 10^3/uL Lymph # (Auto) 3.8 (1.2-3.8) 10^3/uL [place] # (Auto) 0.6 (0.3-0.8) 10^3/uL Eos # (Auto) 0.1 (0.0-0.7) 10^3/uL Baso # (Auto) 0.0 (0.0-0.1) 10^3/uL Abs Immat Gran (auto) 0.02 (0.00-0.03) 10^3/uL Imm/Tot Granulo (auto) 0.3 (0.0-0.5) % Sodium 140 (136-145) mmol/L Potassium 3.4 L (3.5-5.1) mmol/L Chloride 102 (98-107) mmol/L Carbon Dioxide 31.5 (21.0-32.0) mmol/L Anion Gap 9.9 BUN 11.0 (7.0-18.0) mg/dL Creatinine 0.63 (0.55-1.02) mg/dL Est GFR ( Amer) >60 (>=60 mL/min/1.73m^2) Est GFR (Non-Af Amer) >60 (>=60 mL/min/1.73m^2) BUN/Creatinine Ratio 17.5 Glucose 66 L (74-106) mg/dL Calcium 9.3 (8.5-10.1) mg/dL C-Reactive Protein <0.50 (<=0.50) mg/dL Discharge Plan Discharge Chief Complaint: Back Pain/Injury Clinical Impression: Sciatic nerve pain Patient Disposition: Home, Self-Care Prescriptions / Home Meds: No Action estradiol [Lilia] 0.1 mg/24 hr patch semiweekly hydromorphone 2 mg tablet ibuprofen 600 mg tablet hydrocodone-acetaminophen 5-325 mg tablet 1 tab PO Q6H PRN (Reason: pain) 5 Days Qty: 20 0RF ondansetron 4 mg tablet,disintegrating 4 mg PO Q6H PRN (Reason: nausea and vomiting) Qty: 20 0RF oxcarbazepine 300 mg tablet 450 mg PO BEDTIME buspirone 15 mg tablet 15 mg PO TID Vraylar 4.5 mg capsule 4.5 mg PO DAILY hydroxyzine pamoate 50 mg capsule 50 mg PO TID PRN (Reason: anxiety) trazodone 150 mg tablet 150 mg PO QPM PRN (Reason: sleep) venlafaxine 150 mg capsule,extended release 24hr 150 mg PO DAILY venlafaxine 37.5 mg capsule,extended release 24hr 37.5 mg PO DAILY Print Language: Uzbek Instructions: Sciatica (ED) Additional Instructions: follow up with your doctor next week for a recheck Referrals: Physician,Non-Staff, MD [Primary Care Provider] - 1 week
[2025-05-13] MEDS: METHYLPREDNISOLONE SOD SUCC PF 125 MG/2 ML VIAL IVP (23:40)
[2025-05-13] MEDS: ORPHENADRINE 60 MG/2 ML VIAL IV (23:40)
[2025-05-13] MEDS: MAGNESIUM SULFATE IN WATER 2 GM/50 ML PREMIX IV (23:41)
[2025-05-14 00:12] LABS: Hematocrit 39.2 % (36.0-48.0); Hemoglobin 12.9 g/dL (12.0-16.0); Immature Granulocytes Abs Auto 0.02 10^3/uL (0.00-0.03); Immature Granulocytes Pct Auto 0.3 % (0.0-0.5); Lymphocytes Absolute Auto 3.8 10^3/uL (1.2-3.8); Mean Corpuscular HGB Conc 32.9 g/dL (29.9-35.2); Mean Corpuscular Hemoglobin 29.3 pg (26.7-34.0); Mean Corpuscular Volume 88.9 fL (81.0-99.0); Platelet Count 253 10^3/uL (150-450); Red Blood Count 4.41 10^6/uL (4.20-5.40); White Blood Count 7.3 10^3/uL (4.0-11.0)
[2025-05-14 00:28] LABS: Anion Gap 9.9; Blood Urea Nitrogen 11.0 mg/dL (7.0-18.0); Calcium 9.3 mg/dL (8.5-10.1); Carbon Dioxide 31.5 mmol/L (21.0-32.0); Chloride 102 mmol/L (98-107); Estimated GFR (African America >60 (>=60 mL/min/1.73m^2); Estimated GFR (Non-African Ame >60 (>=60 mL/min/1.73m^2); Glucose 66 mg/dL (74-106); Potassium 3.4 mmol/L (3.5-5.1); Sodium 140 mmol/L (136-145)
--- OUTSIDE RECORDS SUMMARY | 2025-05-14 01:02 | XMS_ITS | Clinical Summary ---
Author Organization [facility] Address [address] [place] [address] Care Team Providers Care Proposal Coordinator Name Role Phone Self, Referred Primary Care Provider Unavailabl e Allergies Active AllergyReactionsCriticalityNoted GpxjWifbuqskYtqptHbout29/27/2024 Triametic Social History Tobacco UseTypesPacks/DayYears UsedDateSmoking Tobacco: Never Assessed CommentsUnknownSex and Gender InformationValueDate RecordedSex Assigned at Not on fileLegal VvvMkeqae24/27/2024 1:36 PM EDTGender IdentityNot on fileSexual OrientationNot on file Last Filed Vital Signs Vital SignReadingTime TakenCommentsBlood Ljkiyxny80/6207 5:16 PM EDT Nwwpf0119/27/2024 5:16 PM KRGYnbzpkgzziz83 ??C (98.6 ??F)01/13/2024 1:42 PM EDT Respiratory Nswo012301/13/2024 5:16 PM EDTOxygen Asokbzihon22%01/13/2024 5:16 PM EDTInhaled Oxygen Concentration--Zfnlyv25.6 kg (160 lb)01/13/2024 1:42 PM EDT Dtusrd413 cm (5' 3 )01/13/2024 1:42 PM EDTBody Mass Index28.3407 1:42 PM EDT Plan of Treatment Health MaintenanceDue DateLast DoneCommentsVaricella Vaccines (2 of 2 - 2-dose childhood series)Depression Frgypypjf99/27/2008Pneumococcal Vaccine: Pediatrics (0 to 5 Years) and At-Risk Patients (6 to 64 Years) (1 of 2 - PCV)09/12/2014Pap Smear09/12/2016HPV Vaccines (1 - 3-dose SCDM series) 09/12/2022OVID-19 Vaccine (1 - 2024- season)2025Influenza Vaccine (#1) 511/dult Imgntoa95/04/2023, 12/08/2021, 12/27/2018 Zoster Vaccines (1 of 2)606/09/2002IPV AatprjpwOtikletbh30/16/2002, 02/07/2002, 12/05/2001, Additional history existsHIB VaccinesCompleted 11/20/2002, 04/03/2002, 02/07/2002, Additional history existsMeningococcal B VaccineAged OutNo longer eligible based on patient's age to complete this topic Meningococcal VaccineAged OutNo longer eligible based on patient's age to complete this topicRotavirus VaccinesAged OutNo longer eligible based on patient's age to complete this topic Insurance * Guarantor: Adeel Brush TypeRelation to PatientDate of BirthPhone Billing AddressPersonal/JdgtloTpfv96/27/1996 [address] [place] [id number] Care Teams Team MemberRelationshipSpecialtyStart DateEnd Date SELF, REFERRED [address] PCP - General01/13/24
--- OUTSIDE RECORDS SUMMARY | 2025-05-14 01:02 | XMS_ITS | Clinical Summary ---
Author Organization [facility] Address [address] [place] [address] Care Team Providers Care Tromper Name Role Phone Unallocated, [facility] Provider Primary Care Provi lala Ar Bains MD Unavailable [phone] Allergies Active AllergyReactionsCriticalityNoted DateCommentsChlorpheniramineAnaphylaxis, IokggNfje62/23/1269ElrantycrpthdpkzMwvzc22/22/8870Tl-Oogi-KsbDwtgiphgzo,Swelling 11/18/2016 Throat Swells BvuoqpfoevbksknCvnle59/22/2024 Medications MedicationSigDispense QuantityRefillsLast FilledStart DateEnd DateStatus venlafaxine XR (Effexor XR) 75 MG 24 hr capsule Take 75 mg by mouth in the morning. Take with meals.Active hydrOXYzine HCl (Atarax) 50 MG tablet TAKE 1 TABLET BY MOUTH THREE TIMES DAILY NEEDED FOR EDBBIOT45/16/2025Active estradiol (Vivelle-DOT) 0.05 MG/24HR Indications:Menopausal symptomsPlace 1 patch over 96 hours on the skin 2 (two) times a week 24 patch /ctive ondansetron (Zofran) 4 MG tablet Indications:NauseaTake 1 tablet (4 mg) by mouth every 8 (eight) hours if needed for nausea for up to 7 days 21 tablet Expired ondansetron (Zofran) 4 MG tablet Indications:NauseaTake 1 tablet (4 mg) by mouth every 4 (four) hours if needed for nausea 20 tablet Discontinued Encounters DateTypeDepartmentCare IdsuSienzmzgaze36/28/2025 11:30 AM EDTOffice Visit [facility] [address] [place] [phone] Ar Bains MD Surgery follow-up (Primary Dx); Pelvic peritoneal adhesions, female; Right ovarian cyst; RLQ abdominal pain; Other urinary incontinence; Menopausal ifbddbge67/28/2025amboo flowsheet [facility] [address] [place] [phone] Ar Bains MD 04/15/20254897Maanim60/24/2025Telephone [facility] [address] [place] [phone] Ar Bains MD 04/04/2025Telephone [facility] [address] [place] [phone] Fabiola Vasquez LPN 04/02/2025Telephone [facility] [address] [place] [phone] Ar Bains MD 03/25/2025External Result Encounter [facility] Unsolicited Ar Bains MD 03/24/2025bstract [facility] [address] [place] [phone] Ar Bains MD 03/20/2025Telephone [facility] [address] [place] [address] Fe Silveira MA 03/19/2025Telephone [facility] [address] [place] [address] Ar Bains MD from Last 3 Months Family History Medical HistoryRelationNameCommentsDiverticulitisFatherIrritable bowel syndrome FatherDiabetesMaternal GrandfatherHypertensionMaternal GrandfatherLung cancer Maternal GrandfatherSkin cancerMaternal GrandfatherHypertensionMaternal GrandmotherKidney cancerMaternal GrandmotherOvarian cancerMaternal Grandmother DiabetesMotherHypertensionMotherNo Known ProblemsPaternal GrandfatherNo Known ProblemsPaternal GrandmotherRelationNameStatusCommentsFatherAliveMaternal GrandfatherAliveMaternal GrandmotherAliveMotherAlivePaternal GrandfatherPaternal Grandmother Social History Tobacco UseTypesPacks/DayYears UsedDateSmoking Tobacco: Some DaysCigarettes Smokeless Tobacco: Never Tobacco Cessation:Ready to Q uit: Not Asked; Counseling Given: Not Answered Alcohol UseStandard Drinks/WeekCommentsNever0 (1 standard drink = 0.6 oz pure alcohol)EducationAnswerDate RecordedWhat is the highest level of school you have completed or the highest degree you have received?High school jswinabu33/15/2023 CommentsNoSex and Gender InformationValueDate RecordedSex Assigned at BirthNot on fileLegal RnyOtanjv82/15/2023 6:43 PM EDTGender IdentityNot on file Sexual OrientationNot on file Last Filed Vital Signs Vital SignReadingTime TakenCommentsBlood Oqjutycd304/7810 11:40 AM EDT Pulse--Temperature--Respiratory Rate--Oxygen Saturation--Inhaled Oxygen Concentration--Iontnp64.5 kg (195 lb)04/15/2025 11:40 AM YQKQtuccu427.4 cm (5' 5.5 )02/28/2022 12:00 PM EDTBody Mass Index31.9602/28/2022 12:00 PM EDT Plan of Treatment Health MaintenanceDue DateLast DoneCommentsPneumococcal Vaccine: Pediatrics (0 to 5 Years) and At-Risk Patients (6 to 64 Years) (1 of 2 - PCV)09/12/2014COVID- 19 Vaccine ( - 2024- season)2025Influenza Vaccine (#1)2025 04/24/2014 Procedures Procedure NamePriorityDate/TimeAssociated DiagnosisCommentsCBC WITH AUTO FGEMVBTLWCGIYzmszjc50/07/2025 6:49 AM EDT from Last 3 Months Results * (ABNORMAL) CBC auto differential (03/25/2025 6:49 AM EDT)ComponentValueRef RangeTest MethodAnalysis TimePerformed AtPathologist SignatureWBC6.93.8 - 11.6 [CFU]/mL03/25/2025 7:25 AM [facility] CtrUNCORRECTED WHITE BLOOD COUNT6.93.8 - 11.6 10*3/uL03/25/2025 7:25 AM [facility] CtrRBC3.853.60 - 5.00 10*6/uL03/25/2025 7:25 AM [facility] YhsCTVVHJGKAI79.0(L)11.8 - 15.4 g/dL03/25/2025 7:25 AM [facility] FrtHDXBVRBTYI77.2(L)34.0 - 46.4 %03/25/2025 7:25 AM EDT [facility] ZpuEGW88.280 - 100 fL03/25/2025 7:25 AM EDT [facility] GmdDQE67.524.7 - 34.3 pg03/25/2025 7:25 AM EDT [facility] TfbXCDR51.132.0 - 35.0 g/dL03/25/2025 7:[facility] CtrRED CELL DISTRIBUTION WIDTH, RDW14.011.9 - 15.3 %03/25/2025 7:25 AM [facility] CtrPLATELET KQOUU013027 - 450 10*3/uL03/25/2025 7:25 AM [facility] CtrMEAN PLATELET VOLUME, MPV7.46.3 - 10.7 fL03/25/2025 7:25 AM [facility] CtrNEUTROPHILS, %77.6. %03/25/2025 7:25 AM [facility] LYMPHOCYTES, %14.7. %03/25/2025 7:25 AM [facility] MONOCYTE/MACROPHAGE, %7.6. %03/25/2025 7:25 AM [facility] CtrEOSINOPHILS, %0.0. %03/25/2025 7:25 AM [facility] BASOPHILS, %0.1. %03/25/2025 7:25 AM [facility] CtrNRBC0.10 - 0.5 /100{WBC}03/25/2025 7:25 AM [facility] NEUTROPHILS5.41.8 - 7.7 10*3/uL03/25/2025 7:25 AM [facility] CtrLYMPHOCYTES1.01.00 - 4.8 10*3/uL03/25/2025 7:25 AM [facility] CtrMONOCYTES0.50.0 - 0.8 10*3/uL03/25/2025 7:25 AM EDT [facility] CtrEOSINOPHILS0.00.0 - 0.45 10*3/uL03/25/2025 7:25 AM [facility] CtrBASOPHILS0.00.0 - 0.2 10*3/uL03/25/2025 7:25 AM [facility] CtrSpecimen (Source)Anatomical Location / LateralityCollection Method / VolumeCollection TimeReceived TimeBlood (Blood)03/25/2025 6:49 AM EDT1 7:15 AM EDT Narrative Authorizing ProviderResult TypeResult StatusAr Bains MDLAB BLOOD ORDERABLESFinal ResultPerforming OrganizationAddressCity/State/ZIP CodePhone Number [facility] [address] [place] [address], [facility] [address] [place] [address] from Last 3 Months Insurance Care Teams Team MemberRelationshipSpecialtyStart DateEnd Date Unallocated, [facility] Provider, [address] [place], [place] [id number] PCP - General12/01/22 Ar Bains MD [address] [place] [address] Obstetrics and Gynecology03/08/23
--- OUTSIDE RECORDS SUMMARY | 2025-05-14 01:06 | XMS_ITS | CCD ---
Author Organization [facility] Care Team Providers Care Supervisor Extruding Department Name Role Phone MarthaSylvian Unavailable Hernan Salas Unavailable NO FAMILY, PHYSICIAN Primary Care Provider Unava ilable Nataprawira, DO Juany Attending Provider Visci, DO Jonathan Attending Provider [phone] NO FAMILY, PHYSICIAN Primary Care Provider Unava ilable Nataprawira, DO Juany Attending Provider MD Michael Gurrola Attending Provider MD Michael Gurrola Primary Care Provider MD Melinda Beltre P Attending Provider [phone] NO FAMILY, PHYSICIAN Primary Care Provider Unava ilable Visci, DO Jonathan Attending Provider Visci, DO Jonathan Admit Provider MD Michael Gurrola Attending Provider [phone] NO FAMILY, PHYSICIAN Primary Care Provider Unava ilable MD Michael Gurrola Primary Care Provider MD Melinda Beltre P Attending Provider Nataprjerad, DO Juany Attending Provider Visci, DO Jonathan Admit Provider Visci, DO Jonathan Attending Provider [phone] Melida Mckenna APRN, CNP Primary Care Pro vider MELIDA HUANG Primary Care Unavailable KISHA RANGEL Attending Unavailable KISHA RANGEL Admitting Unavailable Provider, None Primary Care Unavailable iMchael Gurrola Admitting Unavailable Michael Gurrola Attending Unavailable [...] Provider Unava ilable HATTIE Quiñones Emergency Provider [phone] YAIR DAVENPORT Referring Unavailable DIVINE COLEMAN Referring Unavailable DIVINE COLEMAN Attending Unavailable REINA, MELIDA A Referring Unavailable REIAN, MELIDA A Primary Care Unavailable REINA, MELIDA A Referring Unavailable REINA, MELIDA A Primary Care Unavailable Reina 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 - IMPRESS ASSOCIATE, Melida A Primary Care Pro vider REINA, [...] Care Unavailable TYRONE BENITO Attending Unavailable Reina 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-IMPRESS ASSOCIATE, Melida A Primary Care Provi lala No Pcp, No Pcp Primary Care Provider Unavailabl e NO PCP, NO PCP Primary Care Unavailable SHIRLEY BRICE Attending Unavailable NO FAMILY, PHYSICIAN Primary Care Provider Unava ilable Duane Simons DO Emergency Provider Kit Gutierrez MD Admit Provider Kit Gutierrez MD Attending Provider [phone] Goyo Epps DO Emergency Provider [phone] Dashawn Moreno MD Admit Provider Dashawn Moreno MD Attending Provider Vik Gunter MD Attending Provider Kit Gutierrez MD Other Provider Dashawn Moreno MD Other Provider Asim Wyman MD Emergency Provider Norah Sykes MD Emergency Provider [phone] Matt CLEARY, Kit Other Provider Fe Cruz APRN Attending Provider [phone] NO FAMILY, PHYSICIAN Primary Care Provider Unava ilable Matt CLEARY, Kit Admit Provider Matt CLEARY, Kit Attending Provider Duane Simons DO Emergency Provider NO FAMILY, PHYSICIAN Primary Care Provider Unava ilable Josh CLEARY, Dashawn Admit Provider [phone] Josh CLEARY, Dashawn Attending Provider [phone] Josh CLEARY, Dashawn Other Provider NON STAFF Primary Care Provider Unavailabl e NO FAMILY, PHYSICIAN Primary Care Provider Unava ilable Matt CLEARY, Kit Admit Provider Kit Gutierrez MD Attending Provider [phone] Kit Gutierrez MD Other Provider Michael Gurrola MD Admit Provider Michael Gurrola MD Attending Provider [phone] Goyo Epps DO Emergency Provider [phone] NO FAMILY, PHYSICIAN Primary Care Provider Unava ilable Kit Gutierrez MD Attending Provider Matt, Kit Admitting Unavailab le MattMerissaKit Attending Unavailab le NO FAMILY, PHYSICIAN Primary Care Unavailable Matt, Kit Admitting Unavailab le Kit Gutierrez Attending Unavailab le NO FAMILY, PHYSICIAN Primary Care Unavailable Josh, Dashawn Admitting Unavailable Josh, Dashawn Attending Unavailable NO FAMILY, PHYSICIAN Primary Care Unavailable Matt Kit Admitting Unavailab le Kit Gutierrez Attending Unavailab le NO FAMILY, PHYSICIAN Primary Care Unavailable Josh, Dashawn Admitting Unavailable Josh, Dashawn Attending Unavailable NO FAMILY, PHYSICIAN Primary Care Unavailable Printy, Michael Admitting Unavailable Printy, Michael Attending Unavailable NON STAFF Primary Care Unavailable Tupa, Goyo M Attending Unavailable Tupa, Goyo M Admitting Unavailable NO FAMILY, PHYSICIAN Primary Care Unavailable Jani, Vik T Admitting Unavailable Jani, Vik T Attending Unavailable Nancy, Fe M Admitting Unavailable Nancy, Fe M Attending Unavailable Tupa, Goyo M Admitting Unavailable Tupa, Goyo M Attending Unavailable NO FAMILY, PHYSICIAN Primary Care Unavailable Printamadeo, Michael Admitting Unavailable Printy, Michael Attending Unavailable NON STAFF Primary Care Unavailable PRINTY, MICHAEL J Attending Unavailable PRINTY, MICHAEL J Attending Unavailable PRINTY, MICHAEL J Attending Unavailable PRINTY, MICHAEL J Attending Unavailable PRINTY, MICHAEL J Attending Unavailable PRINTY, MICHAEL J Attending Unavailable NO FAMILY, PHYSICIAN Primary Care Provider Unava ilable Duane Simons DO Emergency Provider Dashawn Moreno MD Admit Provider [phone] Dashawn Moreno MD Attending Provider Dashawn Moreno MD Other Provider [phone] Fe Cruz APRN Attending Provider NON STAFF Primary Care Provider Kit Dominguez MD Attending Provider Michael Gurrola MD Admit Provider Michael Gurrola MD Attending Provider [phone] Goyo Epps DO Emergency Provider Lupe Nolan APRN Attending Provider Allergies Allergy ClassificationReported Allergen(s)Allergy TypeDate of OnsetReaction(s) Facility (20 sources)ChlorpheniramineDrug Qqjpuek28-91-8446Odeqpzonivg, Other (See Comments), [facility] (20 sources)DextromethorphanDrug Jjoxrzm54-52-5905Loyfb (See Comments), [facility] (20 sources)PseudoephedrineDrug Nopwnfc46-40-2385Pvazy (See Comments), [facility] (20 sources)Acetaminophen / Chlorpheniramine / DextromethorphanDrug Allergy 40-86-0373Oylsoxqwst, Swelling, [facility]axis[facility] ([facility] source)Chlorpheniramine; Translations: [Triaminic Allergy]Drug Allergy [facility] (1 source)chlorpheniramine/dextromethorphan/PSE; Translations: [chlorpheniramine/dextromethorphan/PSE]Propensity to adverse reactions to drug (disorder)[facility] (19 sources)Chlorpheniramine / PhenylpropanolamineDrug Wpawtnm98-66-1807 [facility] ([facility])OTHER; Translations: [OTHER]Propensity to adverse reactions (disorder) 62-82-5059[facility] (3 sources)GALLYNJZKINCX-MN-IFABKKFEYDJXJ; Translations: [DFWKRVHZQJKJM-TG-PYSNNEVYJDPDP]Propensity to adverse reactions to drug (disorder)21-92-7864HxbWmdnyv RepositoryNEGATED: Highlighted row has been ruled out! (7 sources)OtherPropensity to adverse vjapkkfkm45-93-8551Eahps (See Comments)[facility] Medications Current Medications MedicationDrug Class(es)DatesSig (Normalized)Sig (Original)acetaminophen 325 mg / oxyCODONE hydrochloride 5 mg oral tablet (4 sources)Opioid AgonistStart: 04-16-2024 End: 75-79-8167dmlYAUBOU-acetaminophen (PERCOCET) 5-325 MG per tablet Indications: Pneumoperitoneum Take 1 tablet by mouth every 4 hours as needed for Pain for up to 3 days. Max Daily Amount: 6 tablets 18 tablet 04/16/2024 04/19/2024 ActiveStart: 58-86-2191ucmBYSPLP-acetaminophen (PERCOCET) 5-325 MG per tablet 1 tabletStart: 04-10-2024 End: 48-37-7730llsi 1 tablet by mouth every twenty-four hours1 tablet, Oral, ONCE, 1 dose, On Mon04/10/24 at 1830, Maximum dose of acetaminophen is 4000 mg from all sources in 24 hours.Start: 04-02-2024 End: 25-93-8611zixMJTJZO-acetaminophen (PERCOCET) 5-325 MG per tablet Indications: Right ovarian cyst Take 1 tablet by mouth every 6 hours as needed for Pain for up to 3 days. Intended supply: 3 days. Take lowest dose possible to manage pain Max Daily Amount: 4 tablets 10 tablet 04/02/2024 04/05/2024 Active [id number] 200 actuat albuterol 0.09 mg/actuat metered dose inhaler (1 source)beta2-Adrenergic AgonistStart: 79-63-6934rkgg 2 puff(s) by inhalation four times daily as needed for wheezingalbuterol sulfate HFA (VENTOLIN HFA) 108 (90 Base) MCG/ACT inhaler Inhale 2 puffs into the lungs 4 times daily as needed for Wheezing or Shortness of Breath 54 g 1 08/15/2023 Activeazelastine hydrochloride 0.137 mg/actuat metered dose nasal spray (1 source)Histamine-1 Receptor AntagonistStart: 65-67-7932eihc 2 spray(s) nasal route twice dailyazelastine (ASTELIN) 0.1 % nasal spray 2 sprays by Nasal route 2 times daily Use in each nostril asdirected 60 mL 0 08/15/2023 ActivebusPIRone hydrochloride 15 mg oral tablet (20 sources)Start: 30-93-8643wdeh 1 tablet by mouth three times dailyStart: 12-29-2024 End: 35-73-8825Tfptxnsay 10 mg tablet Discontinued 15 MG PO Three times daily December 28, 2024 11:00pm January 22, 2025 4:59pmStart: 11-16-2024 End: 87-36-1014kkss 1 tablet by mouth twice dailyBuspirone 10 mg tablet Discontinued 10 MG PO Twice daily 60 0 November 15, 2024 11:00pm December 29, 2024 10:45pmStart: 11-10-2024 End: 46-74-6864mxbb 1 tablet by mouth twice dailyBuspirone 5 mg Tablet Discontinued 5 MG PO Twice daily 30 15 2 November 09, 2024 11:00pm November 16, 2024 11:51amcalcium chloride 0.0014 meq/ml / potassium chloride 0.004 meq/ml / sodium chloride 0.103 meq/ml / sodium lactate 0.028 meq/ml injectable solution (1 source)Start: 00-15-3259srvucgfa ringers IV soln infusioncariprazine 4.5 mg oral capsule (20 sources)Atypical AntipsychoticStart: 97-20-4977cnuj 1 capsule by mouth once dailyStart: 12-04-2024 End: 93-45-7457clur 1 capsule by mouth once dailyCariprazine (Vraylar) 3 mg capsule Discontinued 3 MG PO Daily December 03, 2024 11:00pm January 24, 2025 9:15amdocusate sodium 100 mg oral capsule (2 sources)Start: 85-73-6763omvl 1 capsule by mouth twice daily as needed for constipationdocusate sodium (COLACE, DULCOLAX) 100 MG CAPS Take 100 mg by mouth 2 times daily as needed for Constipation 30 capsule 04/16/2024 Rvruyy87 hr estradiol 0.74560 mg/hr transdermal system (6 sources)EstrogenStart: 04-15-2025 End: 72-80-9496xynfcmguf (Vivelle-DOT) 0.05 MG/24HR Indications: Menopausal symptoms Place 1 patch over 96 hours on the skin 2 (two) times a week 24 patch 3 04/15/2025 04/15/2026 ActiveStart: 71-32-1696mobwa 1 dose transdermal route two times weeklyEstradiol 0.1 mg/24 hr patch semiweekly Active 1 PATCH TRANSDERML Twice a Week 8 360 12 March 24, 2025 11:00pm Complies with drug therapy famotidine 20 mg oral tablet (2 sources)Histamine-2 Receptor AntagonistStart: 07-12-2023 End: 15-23-3736obqh 1 tablet by mouth twice dailyfamotidine (PEPCID) 20 MG tablet Take 1 tablet by mouth 2 times daily for 14 days 28 tablet 0 07/12/2023 Activegabapentin 300 mg oral capsule (3 sources)Anti-epileptic AgentStart: 04-14-2024 End: 82-00-1609ewny 1 capsule by mouth three times dailygabapentin (NEURONTIN) 300 MG capsule Take 1 capsule by mouth 3 times daily for 30 days. 90 capsule 04/16/2024 05/16/2024 ActiveStart: 04-13-2024 End: 05-80-2845gzfp 100 mg by mouth three times qlber382 mg, Oral, 3 TIMES DAILY, First dose on 04/13/24 at 0900, Until Discontinuedhomatropine methylbromide 0.3 mg/ml / HYDROcodone bitartrate 1 mg/ml oral solution (1 source)Opioid Agonist, Cholinergic Muscarinic AgonistStart: 08-15-2023 End: 52-50-7284LCBOFonhxpj homatropine (HYCODAN) 5-1.5 MG/5ML solution Indications: Viral upper respiratory tract infection Take 5 mLs by mouth 4 times daily as needed (Cough) for up to 7 days. Max Daily Amount: 20mLs 140 mL 0 08/15/2023 08/22/2023 Activeibuprofen 600 mg oral tablet (20 sources)Nonsteroidal Anti-inflammatory DrugStart: 13-90-7694npvz 1 tablet by mouth every six hours as needed for painIbuprofen 600 mg tablet Active 600 MG PO Q6H as needed for pain 30 March 19, 2025 11:00pm Complies with drug therapyStart: 02-26-2023 End: 94-39-7665ygkz 4 tablets by mouth every twenty-four hours for painIbuprofen 600 mg tablet Discontinued 600 MG PO Every 6 hours as needed for pain 30 February 11:00pm November 06, 2024 11:12pm do not exceed 4 doses in a 24 hour periodStart: 12-08-2021 End: 90-71-7520jjsf 1 tablet by mouth every six hours as needed for pain Ibuprofen 600 mg tablet Discontinued 600 MG PO Q6H as needed for pain 30 December 07, 2021 11:00pm November 03, 2022 9:37amStart: 30-04-6652ybkc 1 tablet by mouth every eight hoursibuprofen (MOTRIN) 800 mg tablet Take 1 tablet (800 mg total) by mouth every 8 (eight) hours. 30 tablet 01/17/2024 Activetake 1 tablet by mouth every six hours as needed for painibuprofen (ADVIL;MOTRIN) 800 MG tablet Take 1 tablet by mouth every 6 hours as needed for Pain Activenaloxone 0.4 mg in 10 mL sodium chloride syringe (1 source)Start: 57-67-2270DelidUAKyiz, PRN, Opioid Reversal, Starting on Mon11/20/23 at 1611 PRN if respiratory rate is less than 6/min and patient is difficult to arouse then notify physician STAT. Mix 9 mL of sodium chloride0.9% with 0.4 mg (1 mL) of naloxone (NARCAN) in 10 mL syringe. (Note: dilution is 0.04 mg/mL) Give 0.08 mg (2 mL of special dilution), slow IV push, repeat up to 0.4 mg (10 mL) or until patient is responsive to physical stimulation and respiratory rate is equal to or greater than6 breaths/min. Continue to observe, if no response within 3 minutes of administration of 0.4 mg (10 mL) total, repeat dose (0.4 mg as administered previously). Concentration 0.04 mg/mL PACU onlynystatin 403755 unt/ml topical cream (6 sources)Polyene AntifungalStart: 42-72-0023etqyqzqt (MYCOSTATIN) cream Indications: Thrush Apply 1 application topically in the morning and 1 a pplication before bedtime. 30 g 01/05/2022 Activeondansetron 4 mg oral tablet (20 sources)Serotonin-3 Receptor AntagonistStart: 04-11-2025 End: 72-60-9119qfdt 1 tablet by mouth every eight hours as needed for nausea and nausea and nauseaondansetron (Zofran) 4 MG tablet Indications: Nausea Take 1 tablet (4 mg) by mouth every 8 (eight) hours if needed for nausea for up to 7 days 21 tablet 04/11/2025 04/18/2025 ActiveStart: 04-11-2025 End: 07-31-0454kcwg 1 tablet by mouth every four hours as needed for nausea and nausea and nauseaondansetron (Zofran) 4 MG tablet Indications: Nausea Take 1 tablet (4 mg) by mouth every 4 (four) hours if needed for nausea 20 tablet 1 04/11/2025 04/15/2025 DiscontinuedStart: 03-26-2025 End: 46-28-6202Bcmsqeoehku 4 mg tablet,disintegrating Discontinued 4 MG PO every 6 to 8 hours as needed for Ukezch69 0 March 25, 2025 11:00pm April 21, 2025 9:50amStart: 11-10-2024 End: 25-55-3413pcxw 1 tablet by mouth every six hours as needed for nausea Ondansetron 4 mg Tablet,Disintegrating Discontinued 4 MG PO Every 6 hours as needed for Nausea 30 30 0 November 09, 2024 11:00pm December 29, 2024 10:38pmStart: 04-10-2024 End: mg, IntraVENous, ONCE PRN, 1 dose, Starting on Mariajose 04/11/24 at 0045, Until Mariajose 04/11/24 at 0110, Nausea, Secondary antiemetic therapy., PACU onlyStart: 04-09-2024 End: mg, IntraVENous, ONCE, 1 dose, On Mon04/09/24 at 1200Start: 04-02-2024 End: mg, IntraVENous, ONCE, 1 dose, On Mon04/02/24 at 1015Start: 03-17-2024 End: 69-13-1221xooy 1 tablet by mouth three times daily as needed for nausea ondansetron (ZOFRAN) 4 MG tablet Take 1 tablet by mouth 3 times daily as needed for Nausea or Vomiting 15 tablet 03/17/2024 04/09/2024 Discontinued (LIST CLEANUP)Start: 77-29-3894hyhh 1 tablet by mouth every eight hours as needed for nauseaondansetron ODT (ZOFRAN ODT) 4 mg disintegrating tablet Dissolve 1 tablet (4 mg total) on tongue every 8 (eight) hours as needed for nausea for up to 10 doses. 10 tablet 02/07/2024 ActiveStart: 02-06-2024 End: 22-96-0547qmho 1 tablet by mouth three times daily as needed for nausea ondansetron (ZOFRAN-ODT) 4 MG disintegrating tablet Take 1 tablet by mouth 3 times daily as needed for Nausea or Vomiting 10 tablet 04/02/2024 04/09/2024 Discontinued (LIST CLEANUP)Start: 02-03-2024 End: mg, IntraVENous, ONCE, 1 dose, On 02/03/24 at 2130Start: 86-19-9672lunr 4 mg by mouth every six hours as needed for nausea and vomiting ondansetron, PF, (ZOFRAN) 4 mg/2 mL injection Take 2 mL (4 mg total) by mouth every 6 (six) hours as needed for nausea or vomiting. 20 mL 01/17/2024 Active Start: 45-93-6032thluofukert (ZOFRAN) 4 MG tablet 11/21/2023 ActiveStart: 07-10-2023 End: 59-72-8437mbqt 1 tablet by mouth three times daily as needed for nausea ondansetron (ZOFRAN-ODT) 4 MG disintegrating tablet Take 1 tablet by mouth 3 times daily as needed for Nausea or Vomiting 21 tablet 0 07/10/2023 08/15/2023 Discontinued (LIST CLEANUP)ondansetron (ZOFRAN-ODT) disintegrating tablet 4 mg (1 source)Start: 11-70-6604kwrgosssbie (ZOFRAN-ODT) disintegrating tablet 4 mg OXcarbazepine 300 mg oral tablet (20 sources)Anti-epileptic AgentStart: 43-25-1718Npojr: 07-24-5201Ncmhakximvcxz 300 mg tablet Active MG PO February 24, 2025 12:00am Complies with drug therapyStart: 12-31-2024 End: 17-55-6215xvrm 3 tablets by mouth once daily at bedtimeOxcarbazepine 150 mg Tablet Discontinued 450 MG PO Daily at bedtime 45 15 December 30, 2024 11:00pm February 24, 2025 9:13amStart: 12-06-2024 End: 71-68-7773yvaa 1 tablet by mouth once daily at bedtimeOxcarbazepine 300 mg Tablet Discontinued 300 MG PO Daily at bedtime 03 07December 05, 2024 11:00pm January 01, 2025 9:40amoxyCODONE hydrochloride 5 mg oral tablet (2 sources)Opioid AgonistStart: 01-17-2024 End: 87-83-2046ezct 1 tablet by mouth every six hours as needed for pain oxyCODONE (ROXICODONE) 5 mg immediate release tablet Indications: Pelvic abscess in female Take 1 tablet (5 mg total) by mouth every 6 (six) hours as needed for pain for up to 3 days. Max Daily Amount: 20 mg 10 tablet 01/17/2024 01/20/2024 ActiveStart: 11-20-2023 End: 54-85-2779qemKABVES (ROXICODONE) immediate release tablet 5 mgPARoxetine hydrochloride 10 mg oral tablet (2 sources)Serotonin Reuptake Inhibitortake 3 tablets by mouth once daily in the morningPARoxetine (PAXIL) 10 MG tablet Take 3 tablets by mouth every morning 0 Activepolyethylene glycol 3350 10060 mg powder for oral solution (1 source)Osmotic LaxativeStart: 51-14-5211hrwgxdph no122/iron/folic acid ( MULTI ORAL) (6 sources) no122/iron/folic acid ( MULTI ORAL) Take by mouth. Suspendedprenatal no122/iron/folic acid ( MULTI ORAL) Take by mouth. Activesucralfate 100 mg/ml oral suspension (2 sources)Aluminum ComplexStart: 27-48-0744oetw 10 mL by mouth four times daily sucralfate (CARAFATE) 1 GM/10ML suspension Take 10 mLs by mouth 4 times daily 1200 mL 3 07/12/2023 ActivetraMADol hydrochloride 50 mg oral tablet (1 source)Opioid AgonistStart: 11-20-2023 End: 48-13-9281gtsr 1 tablet by mouth every four hours as needed for pain traMADol (ULTRAM) 50 MG tablet Indications: Postoperative pain Take 1 tablet by mouth every 4 hoursas needed for Pain for up to 3 days. Intended supply: 3 days. Take lowest dose possible to manage pain Max Daily Amount: 300 mg 10 tablet 0 11/20/2023 11/23/2023 ActivetraZODone hydrochloride 150 mg oral tablet (20 sources)Serotonin Reuptake InhibitorStart: 82-49-5076bpeg 1 tablet by mouth at bedtimeStart: 12-29-2024 End: 46-17-3273Basdlfooe 100 mg tablet Discontinued 150 MG PO Daily at bedtime as needed for insomnia December 28, 2024 11:00pm January 22, 2025 5:00pmStart: 11-16-2024 End: 42-99-0956tlvq 1 tablet by mouth once daily at bedtime as neededTrazodone 100 mg tablet Discontinued 100 MG PO Daily at bedtime as needed for insomnia 30 0 November 15, 2024 11:00pm December 29, 2024 10:30pmStart: 11-10-2024 End: 71-85-0545kdyk 1 tablet by mouth once daily at bedtime as neededTrazodone 50 mg Tablet Discontinued 50 MG PO Daily at bedtime as needed for Insomnia 15 15 November 09, 2024 11:00pm November 16, 2024 11:51am24 hr venlafaxine 37.5 mg extended release oral capsule (20 sources)Serotonin and Norepinephrine Reuptake InhibitorStart: 55-17-8195htvn 1 tablet by mouth once dailyStart: 11-16-2024 End: 89-26-4357vvil 1 tablet by mouth once dailyStart: 11-10-2024 End: 54-23-3839gctp 1 capsule by mouth once daily in the morningVenlafaxine 37.5 mg Capsule,Extended Release 24hr Discontinued 112.5 MG PO Every morning 90 30 November 09, 2024 11:00pm November 16, 2024 11:51amStart: 77-13-5688byrk 1 capsule by mouth every twenty-four hoursVenlafaxine 75 mg capsule,extended release 24hr Active MG PO July 22, 2024 12:00amStart: 07-22-2024 End: 98-03-8777mpjp 1 capsule by mouth once daily in the morningVenlafaxine 75 mg capsule,extended release 24hr Discontinued 75 MG PO Every morning July 22, 2024 12:00am November 10, 2024 6:31amStart: 33-79-9039wamo 1 capsule by mouth once daily at breakfastvenlafaxine (EFFEXOR XR) 75 MG extended release capsule Take 1 capsule by mouth daily (with breakfast) 30 capsule 3 04/17/2024 Active Start: 36-69-5197dwji 75 mg by mouth once daily at vudwebpbi27 mg, Oral, DAILY WITH BREAKFAST, First dose on 04/14/24 at 0815, Until Discontinued, Do not crush or break.take 1 capsule by mouth every twenty-four hours at mealtime venlafaxine XR (Effexor XR) 75 MG 24 hr capsule Take 75 mg by mouth in the morning. Take with meals. Active Completed/Discontinued Medications MedicationDrug Class(es)DatesSig (Normalized)Sig (Original)acetaminophen 500 mg oral tablet (20 sources)Start: 02-25-2023 End: 32-80-5055igsl 2 tablets by mouth every six hours as needed for pain Acetaminophen 500 mg Tablet Discontinued 1000 MG PO Q6H as needed for Pain, Moderate February 11:00pm November 06, 2024 11:12pmStart: 64-92-4715mbtm 1000 mg by mouth every six hoursAcetaminophen Active 1000 MG PO Q6H February 25, 2023 12:00amStart: 11-97-6505dnkr 1 tablet by mouth every six hours Acetaminophen (Tylenol Ex Str Rapid Release) 500 mg Tablet Active 500 MG PO Q6H February 252:00amStart: 11-03-2022 End: 91-68-0491Rjlkkpzhyuqha (Tylenol Ex Str Rapid Release) 500 mg Tablet Discontinued November 02, 2022 11:00pm January 26, 2023 9:37pmStart: 11-03-2022 End: 57-12-1129Tfljssohbvnxf (Tylenol Ex Str Rapid Release) 500 mg Tablet Discontinued TABLET November 03, 2022 12:00am January 26, 2023 10:37pmStart: 11-30-2020 End: 25-99-3866zckr 2 tablets by mouth every eight hoursacetaminophen (TYLENOL EXTRA STRENGTH) 500 mg tablet Take 2 tablets (1,000 mg total) by mouth every8 (eight) hours. 30 tablet 01/18/2024 Activeacetaminophen 325 mg / HYDROcodone bitartrate 5 mg oral tablet (20 sources)Opioid AgonistStart: 01-08-2024 End: 65-51-1137siqb 1 tablet by mouth every six hours as needed for pain Hydrocodone-Acetaminophen 5-325 mg tablet Discontinued 1 TAB PO Q6H as needed for pain 10 3 0 January 08, 2024 July 22, 2024 12:21pm Abdominal pain Unspecified abdominal painStart: 01-08-2024 End: 34-90-2160ASZZNesusua-acetaminophen ([place]) 5-325 MG tablet 1 tablet 01/08/2024 07/10/2024 Discontinued (Ineffective)albuterol 0.833 mg/ml / ipratropium bromide 0.167 mg/ml inhalation solution (1 source)Anticholinergic, beta2-Adrenergic AgonistStart: 08-15-2023 End: 44-07-6453vfjevnthgoc 0.5 mg-albuterol 2.5 mg (DUONEB) nebulizer solution 1 DoseALPRAZolam 0.25 mg oral tablet (1 source)BenzodiazepineStart: 65-01-9191zpcf 0.25 mg by mouth twice daily as needed0.25 mg, Oral, 2 TIMES DAILY PRN, Starting on 04/14/24 at 0610, Until Discontinued, Anxietyamoxicillin 500 mg oral capsule (5 sources)Penicillin-class AntibacterialStart: 02-24-2025 End: 58-42-2407bjzp 1 capsule by mouth twice dailyAmoxicillin 500 mg capsule Discontinued 500 MG PO Twice daily 20 10 0 February 23, 2025 11:00pm March 20, 2025 6:59amamoxicillin 875 mg / clavulanate 125 mg oral tablet (6 sources)Penicillin-class AntibacterialStart: 01-04-2022 End: 70-51-0329hpiy 1 tablet by mouth once dailyamoxicillin-pot clavulanate (AUGMENTIN) 875-125 mg per tablet Take 1 tablet by mouth once daily. For 10 days, pt never took 01/04/2022 02/15/2024 Discontinued (Therapy completed) ARIPiprazole 10 mg oral tablet (14 sources)Atypical AntipsychoticStart: 11-16-2024 End: 67-07-4106mgzk 1 tablet by mouth once daily at bedtimeAripiprazole 10 mg Tablet Discontinued 10 MG PO Daily at bedtime 30 30 0 November 15, 2024 11:00pm December 06, 2024 10:47ambenzonatate 100 mg oral capsule (1 source)Non-narcotic AntitussiveStart: 08-15-2023 End: 65-08-0649aazzvxlopyq (TESSALON) capsule 200 mgbisacodyl 10 mg rectal suppository (1 source)Stimulant LaxativeStart: 04-15-2024 End: 01-79-6803zyvh 1 dose rectal route once10 mg, Rectal, ONCE, 1 dose, On 04/15/24 at 0730ceFAZolin 2000 mg injection (1 source)Cephalosporin AntibacterialStart: 11-20-2023 End: 70-09-4772npMREwjde (ANCEF) 2000 mg in 0.9% sodium chloride 100 mL IVPB citalopram 20 mg oral tablet (20 sources)Serotonin Reuptake InhibitorStart: 06-21-2022 End: 01-23-4944mbmf 1 tablet by mouth once dailyCitalopram 20 mg tablet Discontinued 20 MG PO Daily June 21, 2022 12:00am November 03, 2022 9:38am dexamethasone phosphate 10 mg/ml injectable solution (1 source)CorticosteroidStart: 08-15-2023 End: 13-30-4587qeqFWWOCxdnae (DECADRON) Oral 10 mgdimenhyDRINATE 50 mg oral tablet (1 source)Start: 11-20-2023 End: 90-29-5692ytkxvbcFZKENSY (DRAMAMINE) tablet 50 mgdoxycycline hyclate 100 mg oral capsule (2 sources)Tetracycline-class DrugStart: 01-17-2024 End: 78-19-8836jgre 1 capsule by mouth in the morning, then take 1 capsule by mouth at bedtimedoxycycline (VIBRAMYCIN) 100 mg capsule Take 1 capsule (100 mg total) by mouth in the morning and 1capsule (100 mg total) before bedtime. Do all this for 11 days. 22 capsule 01/17/2024 01/28/2024 Expired0.4 ml enoxaparin sodium 100 mg/ml prefilled syringe (2 sources)Low Molecular Weight HeparinStart: 12-54-6500yayctg 40 mg by subcutaneous injection once daily40 mg, SubCUTAneous, DAILY, First dose on Mariajose 04/11/24 at 0900, Until Discontinued, Indication of Use: Prophylaxis-DVT/PE, Administer by deep subCUTAneous injection with pt lying down. Alternate injec tion sites on abdominal wall. Do not rub site after injection. Check with provider prior to any invasive procedure.Start: 11-20-2023 End: 44-45-9908ftofspmaov (LOVENOX) injection 40 mgescitalopram 10 mg oral tablet (7 sources)Serotonin Reuptake InhibitorStart: 10-31-2023 End: 47-89-7393goiv 1 tablet by mouth once dailyescitalopram (LEXAPRO) 10 MG tablet Take 1 tablet by mouth daily 30 tablet 10/31/2023 04/16/2024 Discontinued (Stop Taking at Discharge)Ethinyl Estradiol / norgestimate (1 source)Progestin, EstrogenStart: 07-19-2023 End: 78-01-7599usvs 1 tablet by mouth once dailynorgestimate-ethinyl estradiol (ORTHO TRI-CYCLEN LO) 0.025 MG tablet Indications: DUB (dysfunctional uterine bleeding) , Menorrhagia with irregular cycle Take 1 tablet by mouth daily 28 tablet 11 07/19/2023 08/15/2023 Discontinued (LIST CLEANUP)2 ml fentaNYL 0.05 mg/ml injection (4 sources)Opioid AgonistStart: 04-11-2024 End: mcg, IntraVENous, EVERY 2 HOURS PRN, Starting on Mariajose 04/11/24 at 0943, Until 04/12/24 at 0656, Allowed for higher pain score per patient request, If oral and IV narcotics ordered, use oral first and only use IV if oral is ineffective or cannot take oral. Do Not give oral and IV within 1 hourof each other unless specifically ordered.Start: 03-17-2024 End: 75-01-8182atuo 1 dose by mouth every hour25 mcg, IntraVENous, ONCE, 1 dose, On 03/17/24 at 1045, If oral and IV narcotics ordered, use oral first and only use IV if oral is ineffective or cannot take oral. Do Not give oral and IV within 1 hour of each other unless specifically ordered.Start: 49-46-050563 mcg, IntraVENous, EVERY 5 MIN PRN, 2 doses, Starting on 11/20/23 at 1611, Until Discontinued, Pain Severe (7-10) For Phase I. If Phase II oral narcotics have been administered in the last 60 minutes, do not administer IV narcotics unless specifically approved by provider. PACU onlyStart: 82-52-767990 mcg, IntraVENous, EVERY 5 MIN PRN, 2 doses, Starting on 11/20/23 at 1611, Until Discontinued, Pain Moderate (4-6) For Phase I. If Phase II oral narcotics have been administered in the last 60 minutes, do not administer IV narcotics unless specifically approved by provider. PACU onlyferrous sulfate 325 mg oral tablet (20 sources)Start: 02-26-2023 End: 51-79-0978ycbe 1 tablet by mouth once dailyFerrous Sulfate 325 mg (65 mg iron) tablet Discontinued 325 MG PO Daily 30 18 07February 251:00pm November 06, 2024 11:12pmfluconazole 100 mg oral tablet (20 sources)Azole AntifungalStart: 01-12-2024 End: 07-89-7320Qpwlmapfpbb (Diflucan) 100 mg tablet Discontinued 150 MG PO Once 1 0 January 11, 2024 11:00pm July 22, 2024 12:21pm End: 68-79-9460eier 1 tablet by mouth oncefluconazole (DIFLUCAN) 150 mg tablet Take 1 tablet (150 mg total) by mouth once. 02/15/2024 Discontinued (Therapy completed)500 ml glucose 50 mg/ml / potassium chloride 0.02 meq/ml / sodium chloride 4.5 mg/ml injection (1 source)Start: 04-12-2024 End: 38-32-3689BgxykQCXyoj, at 100 mL/hr, CONTINUOUS, Starting on Mon04/12/24 at 0715, On hold since Mon04/15/2024 at 0621 until manually unheldHYDROmorphone hydrochloride 2 mg oral tablet (6 sources)Opioid AgonistStart: 03-20-2025 End: 58-55-1048fwdf 1 tablet by mouth every six hours as needed for pain Hydromorphone (Dilaudid) 2 mg tablet Discontinued 2 MG PO Every 6 hours as needed for pain 30 7 0 March 20, 2025 March 23, 2025 9:06pm Chronic right lower quadrant pain Cyst of ovary Right lower quadrant pain Other chronic pain Unspecified ovarian cyst, unspecified sideStart: 02-07-2024 End: 21-74-6300bcrg 1 dose by mouth every hour1 mg, IntraVENous, ONCE, 1 dose, On Mon02/07/24 at 1430, If oral and IV narcotics ordered, use oralfirst and only use IV if oral is ineffective or cannot take oral. Do Not give oral and IV within 1 hour of each other unless specifically ordered.hydrOXYzine pamoate 50 mg oral capsule (20 sources)AntihistamineStart: 02-08-2025 End: 11-41-4772qsfy 1 capsule by mouth three times daily as needed for anxiety Hydroxyzine Pamoate 50 mg capsule Discontinued 50 MG PO Three times daily as needed for anxiety February 07, 2025 11:00pm March 23, 2025 9:06pmStart: 12-29-2024 End: 05-87-3201wynd 1 capsule by mouth every six hours as needed for anxiety Hydroxyzine Pamoate 25 mg capsule Discontinued 25 MG PO Every 6 hours as needed for anxiety December 28, 2024 11:00pm December 30, 2024 4:54amStart: 11-10-2024 End: 31-02-6508iizn 1 capsule by mouth every six hours as needed for anxiety Hydroxyzine Pamoate 50 mg Capsule Discontinued 50 MG PO Q6H as needed for Anxiety 30 15 0 October 11:00pm November 14, 2024 9:12pmStart: 11-07-2024 End: 08-15-5956qdgp 1 tablet by mouth every six hoursHydroxyzine Hcl 50 mg tablet Discontinued 50 MG PO Every 6 hours November 06, 2024 11:00pm December 30, 4:54amStart: 53-71-0149yoaj 1 tablet by mouth three times daily as needed hydrOXYzine HCl (Atarax) 50 MG tablet TAKE 1 TABLET BY MOUTH THREE TIMES DAILY NEEDED FOR ITCHING 11/01/2024 Activeiopamidol (ISOVUE-370) 76 % injection 75 mL (5 sources)Start: 04-10-2024 End: 91-44-7741sflx 1 dose intravenously once75 mL, IntraVENous, IMG ONCE PRN, 1 dose, Starting on Mon04/10/24 at 1921, Until Mon04/10/24 at 1921, OtherStart: 04-02-2024 End: 97-85-8961ffjn 1 dose intravenously once75 mL, IntraVENous, IMG ONCE PRN, 1 dose, Starting on Mon04/02/24 at 1222, Until Mon04/02/24 at 1225, OtherStart: 03-17-2024 End: 14-21-3062rkax 1 dose intravenously once75 mL, IntraVENous, IMG ONCE PRN, 1 dose, Starting on 03/17/24 at 1046, Until Mon03/17/24 at 1052, OtherStart: 02-07-2024 End: 53-67-8324kzrv 1 dose intravenously once75 mL, IntraVENous, IMG ONCE PRN, 1 dose, Starting on Mon02/07/24 at 1203, Until Mon02/07/24 at 1203, OtherStart: 02-03-2024 End: 68-73-7203rtmd 1 dose intravenously once75 mL, IntraVENous, IMG ONCE PRN, 1 dose, Starting on 02/03/24 at 2130, Until 02/03/24 at 2141, Other1 ml ketorolac tromethamine 30 mg/ml cartridge (12 sources)Nonsteroidal Anti-inflammatory Drug, Cyclooxygenase InhibitorStart: 04-11-2024 End: 30-36-263187 mg, IntraVENous, EVERY 6 HOURS PRN, Starting on Mariajose 04/11/24 at 0943, Until Tu04/16/24 at 0640, Allowed for higher pain score per patient request, Do not administer for more than 5 days.Start: 04-10-2024 End: 90-24-797535 mg, IntraVENous, ONCE, 1 dose, On Mon04/10/24 at 1830, Do not administer for more than 5 days.Start: 04-09-2024 End: 80-11-780790 mg, IntraVENous, ONCE, 1 dose, On Mon04/09/24 at 1145, Do not administer for more than 5 days.Start: 19-40-368175 mg, IntraVENous, ONCE, 1 dose, On Mon02/07/24 at 1200, Do not administer for more than 5 days.Start: 83-69-497833 mg, IntraVENous, ONCE, 1 dose, On Mon02/04/24 at 0000, Do not administer for more than 5 days.Start: 11-20-2023 End: 56-00-1987zglm 1 tablet by mouth every six hours as needed for pain ketorolac (TORADOL) 10 MG tablet Take 1 tablet by mouth every 6 hours as needed for Pain 20 tablet 11/20/2023 04/09/2024 Discontinued (LIST CLEANUP)levalbuterol 0.417 mg/ml inhalation solution (2 sources)beta2-Adrenergic AgonistStart: 07-25-2023 End: 89-09-8179nzrnkkhyyxvf (XOPENEX) 1.25 MG/3ML nebulizer solutionStart: 78-93-4344qxhufqiqnmdh (XOPENEX) nebulizer solution 1.25 mgLORazepam 0.5 mg oral tablet (20 sources)BenzodiazepineStart: 06-21-2022 End: 71-09-6557zgnw 1 tablet by mouth three times daily as needed for anxiety Lorazepam 0.5 mg tablet Discontinued 0.5 MG PO Three times daily as needed for Anxiety June 12:00am November 03, 2022 9:38am2 ml metoclopramide 5 mg/ml prefilled syringe (2 sources)Dopamine-2 Receptor AntagonistStart: 04-11-2024 End: 13-98-696814 mg, IntraVENous, ONCE PRN, 1 dose, Starting on Mariajose 04/11/24 at 0045, Until Mariajose 04/11/24 at 0120,Nausea, Initial antiemetic therapy., PACU only Start: 11-20-2023 End: 08-86-558935 mg, IntraVENous, ONCE PRN, 1 dose, Starting on 11/20/23 at 1611, Until Tu11/21/23 at 1611, Nausea Initial antiemetic therapy. PACU only metroNIDAZOLE 0.0075 mg/mg vaginal gel (20 sources)Nitroimidazole AntimicrobialStart: 02-08-2024 End: 92-68-2312zzcgtPIXZTMPH (METROGEL) 0.75 % vaginal gel Place 1 Applicatorful vaginally Twice a Week for 24 doses Start after completing oral medication 140 g 2 02/08/2024 04/09/2024 Discontinued (LIST CLEANUP)Start: 01-17-2024 End: 11-62-2789azdv 1 tablet by mouth every twelve hoursmetroNIDAZOLE (FLAGYL) 500 mg tablet Take 1 tablet (500 mg total) by mouth every 12 (twelve) hours for 11 days. 22 tablet 01/17/2024 01/28/2024 ExpiredStart: 01-12-2024 End: 55-62-8836tgbc 1 tablet by mouth twice dailyMetronidazole 500 mg tablet Discontinued 500 MG PO Twice daily 14 7 0 January 11, 2024 11:00pm November 06, 2024 11:12pm End: 84-93-6382tbgx 1 tablet by mouth three times dailymetroNIDAZOLE (FLAGYL) 500 mg tablet Take 1 tablet (500 mg total) by mouth 3 (three) times a day. Discontinued (Therapy completed)1 ml morphine sulfate 2 mg/ml cartridge (5 sources)Opioid AgonistStart: 04-11-2024 End: 82-09-1202osbq 1 mg by mouth every two hours as needed for pain1 mg, IntraVENous, EVERY 2 HOURS PRN, Starting on Mariajose 04/11/24 at 0145, Until Mon04/12/24 at 0137,Pain Mild (1-3), Pain Moderate (4-6), If oral and IV narcotics ordered, use oral first and only useIV if oral is ineffective or cannot take oral. Do Not give oral and IV within 1 hour of each other unless specifically ordered.Start: 04-10-2024 End: 29-89-2785xifk 1 dose by mouth every hour4 mg, IntraVENous, ONCE, 1 dose, On Mon04/10/24 at 2000, If oral and IV narcotics ordered, use oral first and only use IV if oral is ineffective or cannot take oral. Do Not give oral and IV within 1hour of each other unless specifically ordered.Start: 04-02-2024 End: mg, IntraVENous, ONCE, 1 dose, On Mon04/02/24 at 1230Start: 02-03-2024 End: 48-87-8000zmee 1 dose by mouth every hour4 mg, IntraVENous, ONCE, 1 dose, On 02/03/24 at 2130, If oral and IV narcotics ordered, use oralfirst and only use IV if oral is ineffective or cannot take oral. Do Not give oral and IV within 1 hour of each other unless specifically ordered.24 hr nicotine 0.583 mg/hr transdermal system (20 sources)Cholinergic Nicotinic AgonistStart: 01-24-2025 End: 54-76-2185kjexa 1 dose transdermal route every twenty-four hoursNicotine 14 mg/24 hr Patch 24 Hour Discontinued 14 MG TRANSDERML Daily 20 0 January 23, 2025 11:00pm February 08, 2025 1:18pmStart: 11-16-2024 End: 22-33-3130rghya 1 dose transdermal route every twenty-four hoursNicotine 21 mg/24 hr Patch 24 Hour Discontinued 21 MG TRANSDERML Daily 30 0 November 15, 2024 11:00pm December 03, 2024 6:36pmNIFEdipine 30 mg osmotic 24 hr extended release oral tablet (20 sources)Dihydropyridine Calcium Channel BlockerStart: 11-14-2021 End: 71-33-8698nzxe 1 tablet by mouth once dailyNifedipine (Procardia Xl) 30 mg tablet extended release 24 hr Discontinued 30 MG PO Daily 20 0 November 13, 2021 11:00pm December 08, 2021 10:33amomeprazole 20 mg delayed release oral capsule (20 sources)Proton Pump InhibitorStart: 07-14-2023 End: 92-58-7374evaz 1 capsule by mouth once daily before breakfastomeprazole (PRILOSEC) 20 MG delayed release capsule Indications: H. pylori infection Take 1 capsuleby mouth every morning (before breakfast) 30 capsule 0 07/30/2023 08/15/2023 Discontinued (LIST CLEANUP)Start: 06-22-2022 End: 84-40-8328gago 1 capsule by mouth twice dailyOmeprazole 40 mg capsule,delayed release(DR/EC) Discontinued 40 MG PO Twice daily 60 6 June 12:00am November 03, 2022 9:38amStart: 06-21-2022 End: 25-77-1397ahhw 1 capsule by mouth once dailyOmeprazole 40 mg capsule,delayed release(DR/EC) Discontinued 40 MG PO Daily June 21, 2022 12:00am June 22, 2022 8:18ampiperacillin-tazobactam (ZOSYN) 3,375 mg in sodium chloride 0.9 % 50 mL IVPB (Tfgs8Tlc) (2 sources)Start: 04-11-2024 End: ,375 mg, IntraVENous, EVERY 8 HOURS, 4 doses, First dose on Mon04/11/24 at 0400, Last dose on Mon04/12/24 at 0400, Antimicrobial Indications: Intra-Abdominal InfectionStart: 04-10-2024 End: ,375 mg, IntraVENous, ONCE, 1 dose, On 04/10/24 at 2015, Antimicrobial Indications: Intra-Abdominal Infectionmicroencapsulated potassium chloride 20 meq extended release oral tablet (2 sources)Start: 04-14-2024 End: 24-72-060487 mEq, Oral, ONCE, 1 dose, On 04/14/24 at 0845, Do not crush, chew, or suck on tablet. Tablet may also be broken in half and each half swallowed separately.Start: 04-14-2024 End: 68-89-2162irbilgzgi chloride (KLOR-CON M) extended release tablet 40 mEq predniSONE 20 mg oral tablet (18 sources)Start: 07-22-2024 End: 89-77-5525kvtc 2 tablets by mouth once dailyPrednisone 20 mg tablet Discontinued 40 MG PO Daily 6 3 0 July 22, 2024 12:00am November 06, 2024 11:12pmStart: 08-15-2023 End: 20-19-2859iwqx 2 tablets by mouth once dailypredniSONE (DELTASONE) 20 MG tablet Take 2 tablets by mouth daily for 5 days 10 tablet 0 /08/2023 ActivePrenatal Biqhalzb-Kqy-Gz-Fa () 1 mg Tablet (20 sources)Start: 11-03-2022 End: 65-78-1117qsrn 1 tablet by mouth once dailyPrenatal Nyuudlta-Mbo-Py-Fa () 1 mg Tablet Discontinued 1 TAB PO Daily November 02, 2022 11:00pm January 26, 2023 9:37pmStart: 11-03-2022 End: 61-28-8571yumz 1 tablet by mouth once dailyPrenatal Olcplffm-Nyx-En-Fa () 1 mg Tablet Discontinued 1 TAB PO Daily November 03, 2022 12:00am January 26, 2023 10:37pmStart: 96-45-1700rlbe 1 tablet by mouth once dailyPrenatal Bhkqnjgi-Sdj-Lw-Fa () 1 mg Tablet Active 1 TAB PO Daily November 03, 2022 12:00amprochlorperazine 5 mg/ml injectable solution (2 sources)PhenothiazineStart: 03-17-2024 End: 09-13-165850 mg, IntraVENous, ONCE, 1 dose, On 03/17/24 at 1045, If administering IV push, administer at amaximum rate of 5 mg/minute. Patients should remain lying down following administration and be reassessed for relief of nausea and presence of hypotension. Patients should be assisted the first time they get up after administration.Start: 11-20-2023 End: mg, IntraVENous, ONCE PRN, 1 dose, Starting on 11/20/23 at 1611, Until Mon11/21/23 at 1611, Nausea Secondary antiemetic therapy. PACU only promethazine hydrochloride 25 mg oral tablet (20 sources)PhenothiazineStart: 11-24-2018 End: 03-14-6714vgnk 1 tablet by mouth every eight hours as needed for nausea and vomitingPromethazine 25 mg tablet Discontinued 25 MG PO Q8H as needed for nausea and vomiting 10 0 November 23, 2018 11:00pm October 16, 2020 9:45am promethazine (PHENERGAN) 12.5mg in sodium chloride 0.9% 50 mL IVPB SOLN 12.5 mg (2 sources)Start: 04-14-2024 End: 86-72-307016.5 mg, IntraVENous, at 100 mL/hr, Administer over 30 Minutes, ONCE, On Mon04/14/24 at 1900, For 1 dose, Administer via antecubital vein or higher.Start: 82-81-279313.5 mg, IntraVENous, at 100 mL/hr, Administer over 30 Minutes, EVERY 6 HOURS PRN, Nausea, Startingon Mon04/11/24 at 0954, 2nd line, Administer via antecubital vein or higher.1000 ml sodium chloride 9 mg/ml injection (14 sources)Start: mL, IntraVENous, EVERY 12 HOURS SCHEDULED (2 times per day), First dose on Mon04/11/24 at 0900,Until DiscontinuedStart: 45-06-3499Ouaov: 04-10-2024 End: 51-22-4584BioznDRSovu, at 100 mL/hr, CONTINUOUS, Starting on Mon04/11/24 at 0200, For 24 hours, Complete last bag that is running at 24 hours and then saline lock IVStart: 04-10-2024 End: ,000 mL (14.4 mL/kg), IntraVENous, at 1,935.5 mL/hr, Administer over 31 Minutes, ONCE, On Mon04/10/24 at 1830, For 1 dose, For adult patients weighing > 55 kg (120 lbs.) and less thanStart: 03-17-2024 End: ,000 mL, IntraVENous, at 2,000 mL/hr, Administer over 30 Minutes, ONCE, On Mon03/17/24 at 1045, For 1 doseStart: 02-07-2024 End: ,000 mL (13.8 mL/kg), IntraVENous, at 983.6 mL/hr, Administer over 61 Minutes, ONCE, On Mon02/07/24 at 1200, For 1 dose, For adult patients weighing > 55 kg (120 lbs.) and less thanStart: 75-67-9667pnbh 1 dose intravenously twice daily5-40 mL, IntraVENous, EVERY 12 HOURS SCHEDULED (2 times per day), First dose on Mon11/20/23 at 2100,Until Discontinued For Line Patency: Peripheral IV = 5 mL; Midline or Central Line = 10 mL/lumen. If following IV push medication, administer flush at same rate as the IV push. Flus h volume is determined by type of infusion therapy being given. For non-viscous solutions use: Peripheral IV = 5 mL Midline or Central Line = 10 mL/lumen For viscous solutions (i.e. blood components, parenteral nutrition, contrast media, or after obtaining blood sample) use: Peripheral IV = 10 mL Midline or Central Line = 20 mL/lumen PACU onlyStart: 92-08-2585kdyytz chloride flush 0.9 % injection 5-40 mLStart: 54-87-6883FrjxgIWHlwb, at 5-250 mL/hr, PRN, if patient receiving piggyback infusions and maintenance fluids are not ordered OR KVO fluids to protect IV site / prevent frequent line interruptions/ long duration, Starting on Mon11/20/23 at 1611 For piggyback infusion, administer at same rate as piggyback for a total of 25 mL. Enter 25 mL into dose field and piggyback rate into rate field of order. Ifpiggyback is infusing at a rate less than 100 mL/hr, enter 25 mL into dose field and 100 mL/hr intorate field of order. For KVO fluids, enter rate of 20 mL/hr or less into rate field of order. PACU onlyStart: 50-04-0245qodg 5-40 mL intravenously once as needed5-40 mL, IntraVENous, PRN, Starting on Mon11/20/23 at [...] or Central Line = 20 mL/lumen PACU onlyStart: .9 % sodium chloride infusionStart: 74-78-9952rrybdd chloride flush 0.9 % injection 5-40 mLterconazole 8 mg/ml vaginal cream (20 sources)Azole AntifungalStart: 02-19-2023 End: 19-20-9274Sztxfgxjcml 0.8 % Cream Discontinued 1 APPLICATOR VAGINAL Daily at bedtime 5 0 February 18, 2023 11:00pm February 22, 2023 2:05pm Problems Active Problems Problem ClassificationProblemDateDocumented DateEpisodic/ChronicAbdominal pain (20 sources)Unspecified abdominal pain; Translations: [Pain in pelvis]Onset: 11-78-2280AekmjabmSfjtmvl disorders (2 sources)Anxiety; Translations: [Anxiety disorder, unspecified]Onset: 819654-83-0182UyrjgbhRqotbznhs-vnnpmoj, conduct, and disruptive behavior disorders (18 sources)Attention deficit hyperactivity disorder; Translations: [Attention- deficit hyperactivity disorder, unspecified type]58-62-3448KpikgruRozkofuwa of teeth and jaw (20 sources)Toothache; Translations: [Other specified disorders of teeth and supporting structures]29-39-7414BbyxcspbCkvscacobkoimv and diverticulitis (2 sources)Gastrointestinal perforation; Translations: [Diverticulitis of intestine, part unspecified, with perforation and abscess without bleeding] Onset: 690803-17-2299CwmqutiJdcxkyyhjwhfl (1 source)Uterine adenomyosis; Translations: [Adenomyosis]15-07-3597Sbisirr Esophageal disorders (2 sources)Gastroesophageal reflux disease; Translations: [Gastro-esophageal reflux disease without esophagitis]Onset: 764914-38-9038Uqxmafb Gastrointestinal hemorrhage (1 source)MelenaEpisodicGenitourinary symptoms and ill-defined conditions (2 sources)Urinary incontinence; Translations: [Other specified urinary incontinence]53-99-6742KfvtpnvTzpqqaldcmnuv symptoms and ill-defined conditions (1 source)Dysuria; Translations: [Dysuria]Onset: 59-59-4547PbqidikvBodsppjlpwhll and screening for infectious disease (7 sources)Contact with or exposure to other viral diseases; Translations: [Contact with and (suspected) exposure to covid-19]06-46-1538PvzkgipeAkcrzor control disorders, NEC (19 sources)Homicidal thoughts; Translations: [Homicidal ideations]12-03-2024 EpisodicInflammatory diseases of female pelvic organs (11 sources)Female pelvic inflammatory disease, unspecified; Translations: [Abscess of female pelvis]Onset: 49-28-7221SenngmbeYqgkxurlkq disorders (7 sources)Menopausal symptom; Translations: [Menopausal and female climacteric states]Onset: 422259-49-7393RnfbhciHqkijfxhr disorders (2 sources)Menorrhagia; Translations: [Excessive and frequent menstruation with regular cycle]Onset: 490061-25-9784PcqnkmdTzxl disorders (20 sources)Severe recurrent major depression without psychotic features; Translations: [Major depressive disorder, recurrent severe without psychotic features]Onset: 618927-01-2634IqiqknsGadv disorders (7 sources)Mood disorders; Translations: [Depression, unspecified]Onset: 178299-47-2775Fxzzmr and vomiting (20 sources)Nausea with vomiting, unspecified; Translations: [Nausea and vomiting]Onset: 23-88-2419AwlbjrwaIogcktp on above:Problem List clean-up per request of Phys. EHR CmteNonspecific chest pain (1 source)Chest pain, unspecified; Translations: [Chest pain, unspecified]Onset: 51-15-5093RiipfsruLxfnh aftercare (2 sources)Surgical follow-up; Translations: [Encounter for follow-up examination after completed treatment for conditions other than malignant neoplasm]76-60-2862JoifcfdzWibce complications of (6 sources)Maternal obesity complicating , childbirth and the puerperium, antepartum; Translations: [Obesity complicating , unspecified trimester]Onset: 573427-67-1151ZlmlxfxXgvbe female genital disorders (1 source)Pelvic congestion syndrome; Translations: [Other specified conditions associated with female genital organs and menstrual cycle]31-83-2544Qnqllosa Other gastrointestinal disorders (8 sources)Dysphagia; Translations: [Dysphagia, unspecified]EpisodicOther gastrointestinal disorders (1 source)Dysphagia, unspecifiedEpisodicOther gastrointestinal disorders (2 sources)Diarrhea, unspecified; Translations: [Diarrhea, unspecified]Onset: 56-57-9691QslssmeuNyohs gastrointestinal disorders (1 source)Diarrhea; Translations: [Diarrhea, unspecified]68-26-6179QhanceecSejud gastrointestinal disorders (1 source)Abdominal wind pain; Translations: [Gas pain]04-37-1911HgpuumxfMlbvv gastrointestinal disorders (1 source)Gas pain; Translations: [Gas pain]Onset: 37-68-4898IvzjtxerJqqyy gastrointestinal disorders (4 sources)Pneumoperitoneum; Translations: [Other specified disorders of peritoneum]Onset: 589334-67-3805WmldgmayUnwkl lower respiratory disease (1 source)Shortness of breath; Translations: [Shortness of breath]Onset: 53-04-3805EzmwoedpQqasv nervous system disorders (1 source)Other chronic pain; Translations: [Other chronic pain]Onset: 80-93-0731BwolryrBprkv nervous system disorders (12 sources)Postoperative pain ; Translations: [Other acute postprocedural pain] Onset: 488378-37-6712SbnyzmltHupwg and delivery including normal (20 sources) care status; Translations: [Encounter for routine follow-up]05-87-7096PijahkbsNhltlaf on above:Problem List clean-up per request of Phys. EHR CmteOther upper respiratory infections (20 sources)Upper respiratory infection; Translations: [Acute upper respiratory infection, unspecified]Onset: 273972-39-5215KrcztljvGvxjgql on above: Problem List clean-up per request of Phys. EHR CmteOvarian cyst (20 sources)Cyst of right ovary; Translations: [Unspecified ovarian cyst, right side]Onset: 687325-97-8045AqibdzgfMtocznwwveetfd and other problems of amniotic cavity (20 sources)Srini rupture of membranes onset of labor after 24 hours; Translations: [ premature rupture of membranes, onset of labor more than 24 hours following rupture, unspecified trimester]Onset: [id number] EpisodicComment on above:Problem List clean-up per request of Phys. EHR [facility] enteritis and ulcerative colitis (9 sources)Crohn's disease; Translations: [Crohn's disease, unspecified, without complications]ChronicResidual codes; unclassified (20 sources)Gestation period, 34 weeks; Translations: [34 weeks gestation of ]26-56-2234TxuglntfUgcinol on above:Problem List clean-up per request of Phys. EHR CmteResidual codes; unclassified (20 sources)Tobacco use and exposure - finding; Translations: [Tobacco use] 09-00-6493EtqjrhtaFccdlel on above:Problem List clean-up per request of Phys. EHR CmteResidual codes; unclassified (1 source)Pain, unspecified; Translations: [Pain, unspecified]Onset: 01-14-2024 EpisodicResidual codes; unclassified (19 sources)Deliberate self-cutting; Translations: [Other problems related to lifestyle]47-06-2884LwxindmoAvkloansfq (except in labor) (2 sources)Sepsis, unspecified organism; Translations: [Sepsis, unspecified organism]Onset: 61-18-0776FfjrelhgUrvsqhyiyoq; intervertebral disc disorders; other back problems (1 source)BackacheOnset: 45-42-2588JicnocpkRwcbghdtx-related disorders (16 sources)History of clinical finding in subject; Translations: [History of marijuana use]Onset: 093724-77-9998TfjvttrFhwwudf and intentional self- inflicted injury (20 sources)Suicidal thoughts; Translations: [Suicidal ideations]Onset: 646541-08-0995OcxcxumiNlfpwqrrqkbu (1 source)Post-op ProblemOnset: 14-73-0253Pqhfoghzcoex (1 source)EMS/ yo FOnset: 26-06-6839Zvegnmxlcyrw (1 source)Adenomyosis of the uterus; Translations: [Adenomyosis of the uterus] Onset: 46-38-6721Wmuhlhhojppz (7 sources) December 12 at 10am with Reliability Engineer Mary Lou huber [place] at 10am December 13 at 10:20am with nurse and 10:40am with Emani established with CPST, therapy and EmaniUnclassified (20 sources)for any urgent medical needsUnclassified (10 sources)Go to urgent care for any urgent medical needs.Unclassified (6 sources)was referred at last admission You will receive a phone call Monday morning to set up follow up appointments. Unclassified (16 sources)manager intensive care unit will call you Monday between 8a and 5p, if you miss this phone call please call back as soon as possible.Unclassified (5 sources)manager intensive care unit will call you Monday. If you miss this call please call back as soon as possible.Unclassified (6 sources)was referred at last admissionUnclassified (9 sources) 01/08/25 at 8:45am with nurse, 9am with Emani Mcmillan at [facility] OP office January 10 at 11:30am with CPST Mary Lou CoatesUnclassified (18 sources)Go to urgent care with any urgent medical issues.Unclassified (9 sources)manager intensive care unit will call you tomorrow between 8am & 5pm, if you miss this call please call back as soon as possible.Unclassified (9 sources) 01/28- 10am-11am team meeting 01/29- 8:45am with nurse; 9am with Emani Arias (8 sources)Call office to make a 2 week surgical check.Urinary tract infections (11 sources)Urinary tract infectious disease; Translations: [Urinary tract infection, site not specified]Onset: 266915-52-7180ZzfdhrhkDgflr infection (1 source)COVID-19; Translations: [COVID-19]Onset: 03-10-2024 Past or Other Problems Problem ClassificationProblemDateDocumented DateEpisodic/ChronicMycoses (6 sources)Candidiasis of mouth; Translations: [Candidal stomatitis]Onset: 069087-36-9989WupdbsuaXfdai aftercare (1 source)Device in situ; Translations: [Encounter for change or removal of drains]88-09-5257GpfibvfiOuthm complications of (6 sources)Nausea and vomiting; Translations: [Vomiting of , unspecified]Onset: 294317-91-2386EebqpoppNrybb complications of (6 sources)Tobacco smoking in mother complicating ; Translations: [Smoking (tobacco) complicating , unspecified trimester]Onset: 373070-77-4298DklwphokQglfy complications of (6 sources)History of shoulder dystocia; Translations: [Supervision of with other poor reproductive or obstetric history, unspecified trimester]Onset: 706482-52-9597CsklcidtBlarg female genital disorders (1 source)Other specified conditions associated with female genital organs and menstrual cycle; Translations:[Other specified conditions associated with female genital organs and menstrual cycle]Onset: 78-18-9758WhyrkyjqFaufp gastrointestinal disorders (1 source)Other specified disorders of peritoneum; Translations: [Other specified disorders of peritoneum]Onset: 07-96-0811EogotxhfPfbfv nervous system disorders (1 source)Other acute postprocedural pain; Translations: [Other acute postprocedural pain]Onset: 73-44-6389GyxseiujIjqxc nervous system disorders (6 sources)H/O: migraine; Translations: [Personal history of other diseases of the nervous system and sense organs]Onset: 657408-12-3273BxigrzcpBgimq screening for suspected conditions (not mental disorders or infectious disease) (6 sources)Intact membranes; Translations: [Encounter for suspected problem with amniotic cavity and membrane ruled out]Onset: 715483-92-2948Saddwfld Residual codes; unclassified (1 source)Other problems related to lifestyle; Translations: [Other problems related to lifestyle]Onset: 63-17-5157RkoixuldMnsdkukxoxht (11 sources)Spontaneous rupture of membranes; Translations: [Spontaneous rupture of amniotic membranes]11-26-2020 Results Test NameValueInterpretationReference RangeFacilityNo Panel InformationOrdered By: Lupe Nolan on 62-82-5698Mgyot Strep (POC)[facility] HospitalAlanine aminotransferase [Enzymatic activity/volume] in Serum or Plasma Ordered By: Goyo Epps on 47-26-7718EAW [Catalytic activity/Vol]20 U/L7-52 [facility] HospitalComment on above:Performed By: #### CBC, [id number], T4F, ETOH, LIPID, CMP, TSH3 wRFLX #### [facility] [address] [place] [address] USAAlbumin [Mass/volume] in Serum or Plasma by Bromocresol green (BCG) dye binding methoOrdered By: Goyo Epps on 83-01-4692Ajkvapl BCG dye [Mass/Vol]4.4 g/dL3.5-5.7FOhioHealth Grove City Methodist HospitalAlkaline phosphatase [Enzymatic activity/volume] in Serum or PlasmaOrdered By: Goyo Epps on 46-88-3006YDC [Catalytic activity/Vol]52 U/S97-778ZlituhaezCleveland Clinic Avon HospitalComment on above:Performed By: #### CBC, [id number], T4F, ETOH, LIPID, CMP, TSH3 wRFLX #### [facility] [address] [place] [address] USAAppearance of UrineOrdered By: Goyo Epps on 03-26-2025 Appearance (U)ClearCleWhite HospitalComment on above:Order Comment: Name Collection Type:: Clean-Voided MidstreamPerformed By: #### CBC, [id number], T4F, ETOH, LIPID, CMP, TSH3 wRFLX #### [facility] [address] [place] [id number] USAAspartate aminotransferase [Enzymatic activity/volume] in Serum or PlasmaOrdered By: Goyo Epps on 08-19-7201OPX [Catalytic activity/Vol]21 U/N03-61QwwvgalfaCleveland Clinic Avon HospitalComment on above: Performed By: #### CBC, [id number], T4F, ETOH, LIPID, CMP, TSH3 wRFLX #### [facility] [address] [place] [id number] USABacteria [Presence] in Urine by AutomatedOrdered By: Goyo Epps on 39-80-8606Mgfihwae Auto Ql (U)1+ [HPF][facility] Medical CenterBasic Metabolic Panelon 20-63-9006Sywqtbsrdq Clr Calc Aayjzamx491.72NormHCA Florida Starke Emergency Physician GroupComment on above:Performed By: #### CBC, [id number], T4F, ETOH, LIPID, CMP, TSH3 wRFLX #### [place] [address] USAGFR/1.73 sq M.predicted MDRD (S/P/Bld) [Vol rate/Area] mL/min/{1.73_m2}NormalThe [facility] Physician [facility] Medical CenterComment on above:Performed By: #### CBC, [id number], T4F, ETOH, LIPID, CMP, TSH3 wRFLX #### [place] [id number] USABasophils [#/volume] in Blood by Automated countOrdered By: Goyo Epps on 29-37-2442Jwdrqryxr (Bld) [#/Vol]0.0 10*3/uL0.0-0.2FOhioHealth Grove City Methodist HospitalComment on above:Result Comment: PERFORMED BY: [place] [address] PATHOLOGIST RESISTANCE WELDER AMBER HENNING M.D.Performed By: #### CBC, [id number], T4F, ETOH, LIPID, CMP, TSH3 wRFLX #### [place] [id number] USABasophils/100 leukocytes in Blood by Automated count Ordered By: Goyo Epps on 99-61-6000Ykciiqjox/100 WBC (Bld)0.3 %.[facility] HospitalComment on above:Performed By: #### CBC, [id number], T4F, ETOH, LIPID, CMP, TSH3 wRFLX #### [facility] [address] [place], [place] [address] USABilirubin Test strip Ql (U)Ordered By: Goyo Epps on 79-54-3875Aqtnxgoed Ql (U)NegativeNegativeCleveland Clinic Avon Hospital Bilirubin.direct [Mass/volume] in Serum or PlasmaOrdered By: Goyo Epps on 69-46-3032Eyvejkwsu.direct [Mass/Vol]0.00 mg/dLLow0.03-0.18FOhioHealth Grove City Methodist HospitalComment on above:If the DBIL is less than 0.1, IBIL is not able to becalculated.Bilirubin.total [Mass/volume] in Serum or PlasmaOrdered By: Goyo Epps on 46-69-3337Wjpupgdjq [Mass/Vol]0.4 mg/dL0.3-1.0[facility] HospitalComment on above:Performed By: #### CBC, [id number], T4F, ETOH, LIPID, CMP, TSH3 wRFLX #### [facility] [address] [place], [place] [address] USACT abdomen pelvis w conon 62-49-1749MA abdomen pelvis w [facility] [place] [address] [place] [address] CT Scan Report Signed Patient: Barbra Claros MR#: [id number] : 1995 Acct:[id number] Age/Sex: 29 / F ADM Date: 03/26/25 Loc: ER Room: Type: [facility] ER Attending Dr: Copies to: Goyo Epps [...] is grossly unremarkable. Uterus has been removed.] Peritoneum/Retroperitoneum:Scattered areas of free air are noted likely postsurgical in nature. Small amount of blood is seen within the pelvis. No lymphadenopathy.[ Abd wall/Bones:Abdominal wall demonstrates postoperative changes. No fluid collection to suggest abscess. Fat-containing umbilical hernia. Osseous structures demonstrate degenerative change.[ CT/CT abdomen pelvis w con IMPRESSION: Impression dictated by: Leonard Maria Jr., D.O. 03/26/2025 11:31 AM Dictation Location: [facility]- Transcribed By: SEMAJ 03/26/25 1131 Dictated By: Leonard Maria Jr, DO 03/26/25 1127 Signed By: 03/26/25 1131[facility] Physician GroupCalcium [Mass/volume] in Serum or PlasmaOrdered By: Goyo Epps on 18-99-6471Rbmrwvf [Mass/Vol]8.8 mg/dL 8.6-10.3FOhioHealth Grove City Methodist HospitalComment on above:Performed By: #### CBC, [id number], T4F, ETOH, LIPID, CMP, TSH3 wRFLX #### [facility] [address] [place] [address] USACarbon dioxide, total [Moles/volume] in Serum or Plasma Ordered By: Goyo Epps on 03-61-9703NS2 [Moles/Vol]28.7 mmol/L21.0-31.0 [facility] HospitalComment on above:Performed By: #### CBC, [id number], T4F, ETOH, LIPID, CMP, TSH3 wRFLX #### [facility] [address] [place] [address] USAChloride [Moles/volume] in Serum or PlasmaOrdered By: Goyo Epps on 80-05-7064Ndtnxvpz [Moles/Vol]105 mmol/D36-109GhlbfedscCleveland Clinic Avon HospitalComment on above:Performed By: #### CBC, [id number], T4F, ETOH, LIPID, CMP, TSH3 wRFLX #### [place] [address] USAColor of Urine by AutoOrdered By: Goyo Epps on 49-21-3800Nopor (U)ColorlessYelProMedica Flower HospitalComment on above:Order Comment: Name Collection Type:: Clean-Voided MidstreamPerformed By: #### CBC, [id number], T4F, ETOH, LIPID, CMP, TSH3 wRFLX #### [place] [address] USAComplete Blood Count Auto Diffon 65-98-9989Nxdm Corpuscular HGB Conc34.3 g/dJGmoxxo68.0-35.0The [facility] Physician GroupComment on above:Performed By: #### CBC, [id number], T4F, ETOH, LIPID, CMP, TSH3 wRFLX #### [place] [address] USAMonocytes/100 WBC (Bld)19.32 %Normal0.00-20.00The [facility] Physician GroupComment on above:Performed By: #### CBC, [id number], T4F, ETOH, LIPID, CMP, TSH3 wRFLX #### [place] [address] USANRBC%0.0 /100{WBC}Normal0-0.5The [facility] Physician Group Comment on above:Performed By: #### CBC, [id number], T4F, ETOH, LIPID, CMP, TSH3 wRFLX #### [place] [address] USAWhite Blood Count8.8 [CFU]/mLNormal3.8-11.6The [facility] Physician GroupComment on above:Performed By: #### CBC, [id number], T4F, ETOH, LIPID, CMP, TSH3 wRFLX #### [place] [address] USACreatinine [Mass/volume] in Serum or PlasmaOrdered By: Goyo Epps on 04-58-3159Atulpyesdq [Mass/Vol]0.59 mg/dLLow0.60-1.20[facility] HospitalComment on above:Performed By: #### CBC, [id number], T4F, ETOH, LIPID, CMP, TSH3 wRFLX #### [place] [address] USADipstick and Microscopicon 69-77-7542Daayeluc,Urine1+ [HPF]NormalNone SeenThe [facility]slow [facility] Hospital Physician GroupComment on above:Order Comment: Name Collection Type:: Clean-Voided MidstreamPerformed By: #### CBC, [id number], T4F, ETOH, LIPID, CMP, TSH3 wRFLX #### [place] [address] USABilirubin,UrineNegativeNormalNegativeMorton Plant North Bay Hospital Physician GroupComment on above:Order Comment: Name Collection Type:: Clean- Voided MidstreamPerformed By: #### CBC, [id number], T4F, ETOH, LIPID, CMP, TSH3 wRFLX #### [place] [address] USAGlucose Ql (U)NormalNormalNormalThSaint Alphonsus Regional Medical Center Physician GroupComment on above:Order Comment: Name Collection Type:: Clean-Voided MidstreamPerformed By: #### CBC, [id number], T4F, ETOH, LIPID, CMP, TSH3 wRFLX #### [place] [address] USAHyaline Casts,UrineNoneNormal0-8The [facility] Physician GroupComment on above:Order Comment: Name Collection Type:: Clean-Voided MidstreamResult Comment: PERFORMED BY: [place] [address] PATHOLOGIST RESISTANCE WELDER AMBER HENNING M.D.Performed By: #### CBC, [id number], T4F, ETOH, LIPID, CMP, TSH3 wRFLX #### [place] [address] USANitrite,UrineNegativeNormalNegativeMorton Plant North Bay Hospital Physician GroupComment on above:Order Comment: Name Collection Type:: Clean-Voided MidstreamPerformed By: #### CBC, [id number], T4F, ETOH, LIPID, CMP, TSH3 wRFLX #### [place] [address] USAOccult Blood,UrineTraceNormalNegativeThe [facility] Hospital Physician GroupComment on above:Order Comment: Name Collection Type:: Clean- Voided MidstreamResult Comment: PERFORMED BY: [place] [address] PATHOLOGIST RESISTANCE WELDER AMBER HENNING M.D.Performed By: #### CBC, [id number], T4F, ETOH, LIPID, CMP, TSH3 wRFLX #### [place] [address] USAProtein,UrineNegativeNormalNegativeMorton Plant North Bay Hospital Physician GroupComment on above:Order Comment: Name Collection Type:: Clean-Voided MidstreamPerformed By: #### CBC, [id number], T4F, ETOH, LIPID, CMP, TSH3 wRFLX #### [place] [address] USARBC,Btpzy8-4Lzfaju8-5Plz [facility] Physician GroupComment on above:Order Comment: Name Collection Type:: Clean-Voided MidstreamPerformed By: #### CBC, [id number], T4F, ETOH, LIPID, CMP, TSH3 wRFLX #### [place] [address] USASpecificy Garden[place],Urine1.322Oflqil0.001-1.030The [facility] Physician GroupComment on above:Order Comment: Name Collection Type:: Clean- Voided MidstreamPerformed By: #### CBC, [id number], T4F, ETOH, LIPID, CMP, TSH3 wRFLX #### [place] [address] USASquamous Epithelial Cell,Nxnre8-0Jdwmru3-9Hmo [facility] Physician GroupComment on above:Order Comment: Name Collection Type:: Clean- Voided MidstreamPerformed By: #### CBC, [id number], T4F, ETOH, LIPID, CMP, TSH3 wRFLX #### [facility] [address] [place] [id number] USAUrobilinogen,UrineNormalNormalNormalThe [facility] Physician GroupComment on above:Order Comment: Name Collection Type:: Clean- Voided MidstreamPerformed By: #### CBC, [id number], T4F, ETOH, LIPID, CMP, TSH3 wRFLX #### [facility] [address] [place] [id number] USAWBC,Ujwhu1-3Jodqcm7-0Djk [facility] Physician GroupComment on above:Order Comment: Name Collection Type:: Clean-Voided MidstreamPerformed By: #### CBC, [id number], T4F, ETOH, LIPID, CMP, TSH3 wRFLX #### [facility] [address] [place], [place] [address] USAECG 12 lead ECGon 45-00-6511XTU 12 lead ECGSOUTHWEST [facility] Main [place] [address] [place] [address] Electrocardiograph Report Signed Patient: Barbra Claros MR#: [id number] : 1995 Acct:[id number] Age/Sex: 29 / F ADM Date: 03/26/25 Loc: ER Room: Type: [facility] ER Attending Dr: Ordering Provider: Goyo Epps [...] By: MUS Signed By Goyo Epps DO [address] [place] [address] Physician GroupEosinophils [#/volume] in Blood by Automated countOrdered By: Goyo Epps on 35-21-6718Kjbgzlbmosg (Bld) [#/Vol] 0.0 10*3/uL0.0-0.45[facility] HospitalComment on above:Performed By: #### CBC, [id number], T4F, ETOH, LIPID, CMP, TSH3 wRFLX #### [facility] [address] [place] [address] USAEosinophils/100 leukocytes in Blood by Automated count Ordered By: Goyo Epps on 96-73-5116Zsrpacwqzho/100 WBC (Bld)0.3 %.[facility] HospitalComment on above:Performed By: #### CBC, [id number], T4F, ETOH, LIPID, CMP, TSH3 wRFLX #### [facility] [address] [place] [address] USAEpithelial cells.squamous [#/area] in Urine sediment by Automated countOrdered By: Goyo Epps on 35-71-6496Nolxhxkxqe cells.squamous Auto (Urine sed) [#/Area]1-2 [HPF]0-2FOhioHealth Grove City Methodist Hospital Erythrocyte distribution width [Ratio] by Automated countOrdered By: Goyo Epps on 49-62-0973Gxvrjbtirxc distribution width (RBC) [Ratio]14.0 %11.9-15.3 [facility] HospitalComment on above:Performed By: #### CBC, [id number], T4F, ETOH, LIPID, CMP, TSH3 wRFLX #### [facility] [address] [place] [address] USAErythrocytes [#/area] in Urine sediment by Automated count Ordered By: Goyo Epps on 83-78-8805ILC Auto (Urine sed) [#/Area]1-2 [HPF]0-4 [facility] HospitalErythrocytes [#/volume] in Blood by Automated countOrdered By: Goyo Epps on 29-91-3240HOF (Bld) [#/Vol]3.61 10*6/uL 3.60-5.00[facility] HospitalComment on above:Performed By: #### CBC, [id number], T4F, ETOH, LIPID, CMP, TSH3 wRFLX #### [facility] [address] [place] [address] USAGlomerular filtration rate [Volume Rate/Area] in Serum, Plasma or Blood by CreatinineOrdered By: Goyo Epps on 39-31-2712Dvkqhjumlt filtration rate [Volume Rate/Area] in Serum, Plasma or Blood by Creatinine> 60.0 mL/MinCleveland Clinic Avon HospitalGlucose [Mass/volume] in Serum or Plasma Ordered By: Goyo Epps on 50-75-5322Psrkydc [Mass/Vol]88 mg/mE52-063IabcngcnbCleveland Clinic Avon HospitalComment on above:ADA recommended reference rangeRandom Glucose Reference Range is dependent on time and content of last meal. Glucose of more than 200 mg/dL in a nonstressed, ambulatory subject supports the diagnosisof Diabetes Mellitus.Result Comment: Random Glucose Reference Range is dependent on time and content of last meal. Glucose of more than 200 mg/dL in a nonstressed, ambulatory subject supports the diagnosis of Diabetes Mellitus. ADA recommended reference rangePerformed By: #### CBC, [id number], T4F, ETOH, LIPID, CMP, TSH3 wRFLX #### [facility] [address] [place] [id number] USAGlucose [Mass/volume] in Urine by Test stripOrdered By: Goyo Epps on 97-75-7876Unegoik Test strip (U) [Mass/Vol]Normal mg/dLNormal [facility] HospitalHematocrit [Volume Fraction] of Blood by Automated countOrdered By: Goyo Epps on 24-25-4211Mgqhgesebp (Bld) [Volume fraction]31.2 %Low34.0-46.4FOhioHealth Grove City Methodist HospitalComment on above: Performed By: #### CBC, [id number], T4F, ETOH, LIPID, CMP, TSH3 wRFLX #### [facility] [address] [place] [address] USAHemoglobin Test strip Ql (U)Ordered By: Goyo Epps on 56-49-2393Bskvbtgbyl Ql (U)TraceHighNegativeCleveland Clinic Avon Hospital Hemoglobin [Mass/volume] in BloodOrdered By: Goyo Epps on 03-26-2025 Hemoglobin (Bld) [Mass/Vol]10.7 g/dLLow11.8-15.4FOhioHealth Grove City Methodist HospitalComment on above:Performed By: #### CBC, [id number], T4F, ETOH, LIPID, CMP, TSH3 wRFLX #### [facility] [address] [place] [address] USAHepatic Panelon 35-79-8800Yoqpkyz [Mass/Vol]4.4 g/dLNormal 3.5-5.7The [facility] Physician GroupComment on above:Performed By: #### CBC, [id number], T4F, ETOH, LIPID, CMP, TSH3 wRFLX #### [facility] [address] [place] [address] USABilirubin,Indirect0.4 mg/dLNormalThe [facility] Physician GroupComment on above:Performed By: #### CBC, [id number], T4F, ETOH, LIPID, CMP, TSH3 wRFLX #### [facility] [address] [place] [address] USABilirubin.indirect [Mass/Vol]0.00 mg/dLLow0.03-0.18The [facility] Physician GroupComment on above:Result Comment: If the DBIL is less than 0.1, IBIL is not able to be calculated.Performed By: #### CBC, [id number], T4F, ETOH, LIPID, CMP, TSH3 wRFLX #### [place] [address] USAHyaline casts [#/area] in Urine sediment by Automated countOrdered By: Goyo Epps on 54-33-2274Wjgmdyh casts Auto (Urine sed) [#/Area]None [LPF]0-8[facility] HospitalKetones [Presence] in Urine by Test stripOrdered By: Goyo Epps on 20-71-4281Boassbk Ql (U)Negative NegativeCleveland Clinic Avon HospitalComment on above:Order Comment: Name Collection Type:: Clean-Voided MidstreamPerformed By: #### CBC, [id number], T4F, ETOH, LIPID, CMP, TSH3 wRFLX #### [facility] [address] [place] [id number] USALeukocyte esterase [Presence] in Urine by Test strip Ordered By: Goyo Epps on 41-76-6671Jusxwxgit esterase Test strip Ql (U) NegativeNegativeCleveland Clinic Avon HospitalComment on above:Order Comment: Name Collection Type:: Clean-Voided MidstreamPerformed By: #### CBC, [id number], T4F, ETOH, LIPID, CMP, TSH3 wRFLX #### [facility] [address] [place] [address] USALeukocytes [#/area] in Urine sediment by Automated count Ordered By: Goyo Epps on 07-01-7296VNX Auto (Urine sed) [#/Area]1-2 [HPF]0-4 [facility] HospitalLeukocytes [#/volume] corrected for nucleated erythrocytes in Blood by Automated counOrdered By: Goyo Epps on 60-01-5467TTX corrected for nucl RBC Auto (Bld) [#/Vol]8.8 10*3/uL3.8-11.6FOhioHealth Grove City Methodist HospitalLeukocytes [#/volume] in Blood by Automated countOrdered By: Goyo Epps on 07-83-6920HFT (Bld) [#/Vol]8.8 10*3/uL3.8-11.6FOhioHealth Grove City Methodist HospitalComment on above:Performed By: #### CBC, [id number], T4F, ETOH, LIPID, CMP, TSH3 wRFLX #### [facility] [address] [place], [place] [address] USALipase [Enzymatic activity/volume] in Serum or Plasma Ordered By: Goyo Epps on 21-65-3255Bkrpcm [Catalytic activity/Vol]12.0 U/L 11.0-82.0C[facility]on HospitalComment on above:Result Comment: PERFORMED BY: [place] [id number] PATHOLOGIST RESISTANCE WELDER AMBER HENNING M.D.Performed By: #### CBC, [id number], T4F, ETOH, LIPID, CMP, TSH3 wRFLX #### [facility] [address] [place] [id number] USALymphocytes [#/volume] in Blood by Automated countOrdered By: Goyo Epps on 36-91-4571Jhduvtvrvfa (Bld) [#/Vol]1.8 10*3/uL1.00-4.8 [facility] HospitalComment on above:Performed By: #### CBC, [id number], T4F, ETOH, LIPID, CMP, TSH3 wRFLX #### [facility] [address] [place], [place] [address] USALymphocytes/100 leukocytes in Blood by Automated count Ordered By: Goyo Epps on 50-95-8631Gziwifdllfw/100 WBC (Bld)21.0 %.[facility] HospitalComment on above:Performed By: #### CBC, [id number], T4F, ETOH, LIPID, CMP, TSH3 wRFLX #### [facility] [address] [place] [id number] [facility] [Entitic mass] by Automated countOrdered By: Goyo Epps on 84-88-6379FXA (RBC) [Entitic mass]29.7 pg24.7-34.3FOhioHealth Grove City Methodist HospitalComment on above:Performed By: #### CBC, [id number], T4F, ETOH, LIPID, CMP, TSH3 wRFLX #### [facility] [facility] [address] [place], [place] [id number] [facility] Auto (RBC) [Mass/Vol]Ordered By: Goyo Epps on 38-04-2377RORB (RBC) [Mass/Vol]34.3 g/dL32.0-35.0[facility] HospitalMCV [Entitic volume] by Automated countOrdered By: Goyo Epps on 06-77-8559NYX (RBC) [Entitic vol]86.6 hU74-403HsfhynhloCleveland Clinic Avon Hospital Comment on above:Performed By: #### CBC, [id number], T4F, ETOH, LIPID, CMP, TSH3 wRFLX #### [facility] [address] [place] [address] USAMonocyte distribution width [Entitic volume] in Blood by AutomatedOrdered By: Goyo Epps on 75-65-9336Hwvbftvw distribution width Auto (Bld) [Entitic vol]19.32 %0.00-20.00[facility] HospitalMonocytes [#/volume] in Blood by Automated countOrdered By: Goyo Epps on 03-26-2025 Monocytes (Bld) [#/Vol]0.9 10*3/uLHigh0.0-0.8[facility] Comment on above:Performed By: #### CBC, [id number], T4F, ETOH, LIPID, CMP, TSH3 wRFLX #### [facility] [address] [place] [address] USAMonocytes/100 leukocytes in Blood by Automated count Ordered By: Goyo Epps on 06-89-8722Lwmpvhaqw/100 WBC (Bld)10.4 %.[facility] HospitalComment on above:Performed By: #### CBC, [id number], T4F, ETOH, LIPID, CMP, TSH3 wRFLX #### [facility] [address] [place] [address] USANeutrophils [#/volume] in Blood by Automated countOrdered By: Goyo Epps on 39-81-4966Mfprlganwzh (Bld) [#/Vol]6.0 10*3/uL1.8-7.7 [facility] HospitalComment on above:Performed By: #### CBC, [id number], T4F, ETOH, LIPID, CMP, TSH3 wRFLX #### [facility] [address] [place] [address] USANeutrophils/100 leukocytes in Blood by Automated count Ordered By: Goyo Epps on 29-25-0453Ditvoqkgphc/100 WBC (Bld)68.0 %.[facility] HospitalComment on above:Performed By: #### CBC, [id number], T4F, ETOH, LIPID, CMP, TSH3 wRFLX #### [address] [place] [address] USANitrite Test strip Ql (U)Ordered By: Goyo Epps on 83-38-6118Zfeazhl Ql (U)NegativeNegProMedica Defiance Regional HospitalNo Panel InformationOrdered By: Goyo Epps on 96-85-2913Knxwhjps Creatinine Clearance (Agtw411.72[facility] HospitalNucleated erythrocytes [Presence] in Blood by Automated countOrdered By: Goyo Epps on 03-26-2025 Nucleated RBC Auto Ql (Bld)0.0 /100{WBC}0-0.5FOhioHealth Grove City Methodist Hospital Platelet mean volume [Entitic volume] in Blood by Automated countOrdered By: Goyo Epps on 45-89-7588Skhethpa mean volume (Bld) [Entitic vol]7.4 fL6.3-10.7 [facility] HospitalComment on above:Performed By: #### CBC, [id number], T4F, ETOH, LIPID, CMP, TSH3 wRFLX #### [facility] [address] [place], [place] [address] USAPlatelets [#/volume] in Blood by Automated countOrdered By: Goyo Epps on 91-11-3328Mxpqkastc (Bld) [#/Vol]254 10*3/gA182-838WoljzxigbCleveland Clinic Avon HospitalComment on above:Performed By: #### CBC, [id number], T4F, ETOH, LIPID, CMP, TSH3 wRFLX #### [facility] [address] [place], [place] [address] USAPotassium [Moles/volume] in Serum or PlasmaOrdered By: Goyo Epps on 26-71-4595Baxolejtx [Moles/Vol]3.6 mmol/L3.5-5.1FOhioHealth Grove City Methodist HospitalComment on above:Performed By: #### CBC, [id number], T4F, ETOH, LIPID, CMP, TSH3 wRFLX #### [facility] [address] [place], [place] [address] USAProtein Test strip (U) [Mass/Vol]Ordered By: Goyo Epps on 29-96-4825Obksvrs (U) [Mass/Vol]NegativeNegProMedica Defiance Regional HospitalProtein [Mass/volume] in Serum or PlasmaOrdered By: Goyo Epps on 54-72-1256Jmejerz [Mass/Vol]7.4 g/dL6.4-8.9[facility] Comment on above:Performed By: #### CBC, [id number], T4F, ETOH, LIPID, CMP, TSH3 wRFLX #### [facility] [address] [place] [address] USASerum globulin measurement by calculation (mass/volume) Ordered By: Goyo Epps on 80-69-0847Yiioskrf (S) [Mass/Vol]3.0 g/dLCleveland Clinic Avon HospitalComment on above:Performed By: #### CBC, [id number], T4F, ETOH, LIPID, CMP, TSH3 wRFLX #### [facility] [address] [place] [address] USASerum or plasma albumin/globulin mass ratioOrdered By: Goyo Epps on 04-69-9733Vzsyoek/Globulin [Mass ratio]1.5 {ratio}[facility] HospitalComment on above:Performed By: #### CBC, [id number], T4F, ETOH, LIPID, CMP, TSH3 wRFLX #### [facility] [address] [place] [address] USASerum or plasma anion gap determinationOrdered By: Goyo Epps on 48-97-6612Vifod gap [Moles/Vol]9.9 mmol/L6.0-15.0[facility] HospitalComment on above:Performed By: #### CBC, [id number], T4F, ETOH, LIPID, CMP, TSH3 wRFLX #### [facility] [address] [place], [place] [phone] USASerum or plasma non-glucuronidated bilirubin measurement (mass/volume)Ordered By: Goyo Epps on 85-89-5650Xqaurelcc.indirect [Mass/Vol] 0.4 mg/dLKettering Health Prebleodium [Moles/volume] in Serum or PlasmaOrdered By: Goyo Epps on 73-66-7585Hsefcd [Moles/Vol]140 mmol/L847-521 [facility] HospitalComment on above:Performed By: #### CBC, [id number], T4F, ETOH, LIPID, CMP, TSH3 wRFLX #### [facility] [address] [place], [place] [address] USASpecific gravity Test strip (U) [Rel density]Ordered By: Goyo Epps on 81-87-9011Xrvttzfv gravity (U) [Rel density]1.0071.001-1.030 [facility] HospitalUrea nitrogen [Mass/volume] in Serum or Plasma Ordered By: Goyo Epps on 89-21-2570Cmxl nitrogen [Mass/Vol]8 mg/dL7-25 [facility] HospitalComment on above:Performed By: #### CBC, [id number], T4F, ETOH, LIPID, CMP, TSH3 wRFLX #### [place] [id number] USAUrobilinogen Test strip (U) [Mass/Vol]Ordered By: Goyo Epps on 06-80-1308Cndqbpobjdsb (U) [Mass/Vol]Normal mg/dLNormalCleveland Clinic Avon HospitalpH of Urine by Test stripOrdered By: Goyo Epps on 38-10-5184jW (U)6.0 [pH]5.0-9.0[facility] HospitalComment on above:Order Comment: Name Collection Type:: Clean-Voided MidstreamPerformed By: #### CBC, [id number], T4F, ETOH, LIPID, CMP, TSH3 wRFLX #### [facility] [address] [place], [place] [address] USABasophils [#/volume] in Blood by Automated countOrdered By: MICHAEL GURROLA on 04-14-8962Bzicgrsar (Bld) [#/Vol]0.0 10*3/uL0.0-0.2FOhioHealth Grove City Methodist HospitalComment on above:Result Comment: PERFORMED BY: [place] [address] PATHOLOGIST RESISTANCE WELDER AMBER HENNING M.D.Performed By: #### CBC, [id number], T4F, ETOH, LIPID, CMP, TSH3 wRFLX #### [facility] [address] [place] [address] USABasophils/100 leukocytes in Blood by Automated count Ordered By: MICHAEL GURROLA on 27-21-6041Shspfbouu/100 WBC (Bld)0.1 %.[facility] HospitalComment on above:Performed By: #### CBC, [id number], T4F, ETOH, LIPID, CMP, TSH3 wRFLX #### [facility] [address] [place] [address] USACBC W Auto Differential panel (Bld)on 81-11-5824Bthcrebul (Bld) [#/Vol]0 10*3/uL0.0 - 0.2 10*3/uLNOMS HealthcareBasophils/100 WBC Manual cnt (Syn fld)0.1 %.[facility] CenterEosinophils (Bld) [#/Vol]0 10*3/uL0.0 - 0.45 10*3/uLNOMS HealthcareEosinophils/100 WBC Manual cnt (Syn fld)0 %.[facility] Treatment CenterErythrocyte distribution width (RBC) [Ratio]14 %11.9 - 15.3 %[facility] CenterHematocrit (Bld) [Volume fraction]33.2 %Low34.0 - 46.4 %[facility] CenterHemoglobin (Bld) [Mass/Vol]11 g/dLLow11.8 - 15.4 g/dLSoutheast Missouri Community Treatment Center Interpretation and review of laboratory resultsAbnormalSoutheast [facility] Community Treatment Center Lymphocytes (Bld) [#/Vol]1 10*3/uL1.00 - 4.8 10*3/uLNOKY Healthcare Lymphocytes/100 WBC Manual cnt (Syn fld)14.7 %.[facility] HospitalH (RBC) [Entitic mass]28.5 pg24.7 - 34.3 pgTexas County Memorial HospitalHC (RBC) [Mass/Vol]33.1 g/dL32.0 - 35.0 g/dLTexas County Memorial HospitalV (RBC) [Entitic vol]86.2 fL80 - 100 fLSoutheast Missouri Community Treatment Center Monocytes (Bld) [#/Vol]0.5 10*3/uL0.0 - 0.8 10*3/uLNOMS Healthcare Monocytes+Macrophages/100 WBC Manual cnt (Syn fld)7.6 %.[facility] Healthcare Neutrophils (Bld) [#/Vol]5.4 10*3/uL1.8 - 7.7 10*3/uLNOKY Healthcare Neutrophils/100 WBC Manual cnt (Syn fld)77.6 %.[facility] HealthcareNRBC0.1 /100{WBC}0 - 0.5 /100{WBC}NOMS HealthcarePlatelet mean volume (Bld) [Entitic vol]7.4 fL6.3 - 10.7 fLUNIVERSITY OF UTAH HOSPITAL HealthcarePlatelets (Bld) [#/Vol]261 10*3/uL150 - 450 10*3/uLSoutheast Missouri Community Treatment CenterRBC LM.HPF (Urine sed) [#/Area]3.85 10*6/uL3.60 - 5.00 10*6/uLNOKY HealthcareWBC (Bld) [#/Vol]6.9 10*3/uL3.8 - 11.6 10*3/uLNOSaint Luke's HospitalWBC LM.HPF (Urine sed) [#/Area]6.9 [CFU]/mL3.8 - 11.6 [CFU]/mLNOMS [facility] HealthcareComplete Blood Count Auto Diffon 82-58-0809Bvjf Corpuscular HGB Conc 33.1 g/zKVhwdxa45.0-35.0[facility] Physician GroupComment on above:Performed By: #### CBC, [id number], T4F, ETOH, LIPID, CMP, TSH3 wRFLX #### [facility] [address] [place] [id number] USANRBC%0.1 /100{WBC}Normal0-0.5[facility] Comment on above:Performed By: #### CBC, [id number], T4F, ETOH, LIPID, CMP, TSH3 wRFLX #### [facility] [address] [place] [address] USAWhite Blood Count6.9 [CFU]/mLNormal3.8-11.6[facility] Physician GroupComment on above:Performed By: #### CBC, [id number], T4F, ETOH, LIPID, CMP, TSH3 wRFLX #### [facility] [address] [place] [phone] USAEosinophils [#/volume] in Blood by Automated countOrdered By: MICHAEL GURROLA on 99-21-6505Smyhwzajiji (Bld) [#/Vol]0.0 10*3/uL0.0-0.45 [facility] HospitalComment on above:Performed By: #### CBC, [id number], T4F, ETOH, LIPID, CMP, TSH3 wRFLX #### [facility] [address] [place], [place] [address] USAEosinophils/100 leukocytes in Blood by Automated count Ordered By: MICHAEL GURROLA on 86-26-6173Klizjvvfohf/100 WBC (Bld)0.0 %.[facility] HospitalComment on above:Performed By: #### CBC, [id number], T4F, ETOH, LIPID, CMP, TSH3 wRFLX #### [place] [address] USAErythrocyte distribution width [Ratio] by Automated count Ordered By: MICHAEL GURROLA on 69-03-1710Pjbkotmpqnu distribution width (RBC) [Ratio]14.0 %11.9-15.3FOhioHealth Grove City Methodist HospitalComment on above: Performed By: #### CBC, [id number], T4F, ETOH, LIPID, CMP, TSH3 wRFLX #### [place] [phone] USAErythrocytes [#/volume] in Blood by Automated countOrdered By: MICHAEL GURROLA on 25-60-3881EBV (Bld) [#/Vol]3.85 10*6/uL3.60-5.00[facility] HospitalComment on above:Performed By: #### CBC, SNAT85YD, T4F, ETOH, LIPID, CMP, TSH3 wRFLX #### [place] [address] USAHematocrit [Volume Fraction] of Blood by Automated count Ordered By: MICHAEL GURROLA on 04-31-7790Ogldzbemua (Bld) [Volume fraction]33.2 % Low34.0-46.4FOhioHealth Grove City Methodist HospitalComment on above:Performed By: #### CBC, [id number], T4F, ETOH, LIPID, CMP, TSH3 wRFLX #### [facility] [address] [place] [address] USAHemoglobin [Mass/volume] in BloodOrdered By: MICHAEL GURROLA on 06-50-2130Exmagffgqe (Bld) [Mass/Vol]11.0 g/dLLow11.8-15.4FOhioHealth Grove City Methodist HospitalComment on above:Performed By: #### CBC, [id number], T4F, ETOH, LIPID, CMP, TSH3 wRFLX #### [facility] [address] [place] [phone] USALeukocytes [#/volume] corrected for nucleated erythrocytes in Blood by Automated counOrdered By: MICHAEL GURROLA on 75-73-6825IXY corrected for nucl RBC Auto (Bld) [#/Vol]6.9 10*3/uL3.8-11.6FOhioHealth Grove City Methodist HospitalLeukocytes [#/volume] in Blood by Automated countOrdered By: MICHAEL GURROLA on 25-75-0873MJQ (Bld) [#/Vol]6.9 10*3/uL3.8-11.6FOhioHealth Grove City Methodist HospitalComment on above:Performed By: #### CBC, AMPK55IE, T4F, ETOH, LIPID, CMP, TSH3 wRFLX #### [facility] [address] [place] [phone] USALymphocytes [#/volume] in Blood by Automated countOrdered By: MICHAEL GURROLA on 43-65-0432Ytvxsgsofpd (Bld) [#/Vol]1.0 10*3/uL1.00-4.8 [facility] HospitalComment on above:Performed By: #### CBC, [id number], T4F, ETOH, LIPID, CMP, TSH3 wRFLX #### [facility] [address] [place] [address] USALymphocytes/100 leukocytes in Blood by Automated count Ordered By: MICHAEL GURROLA on 60-29-8377Zicbmjvezea/100 WBC (Bld)14.7 %.[facility] HospitalComment on above:Performed By: #### CBC, [id number], T4F, ETOH, LIPID, CMP, TSH3 wRFLX #### [facility] [address] [Entitic mass] by Automated countOrdered By: MICHAEL GURROLA on 49-11-0117BDR (RBC) [Entitic mass]28.5 pg24.7-34.3FOhioHealth Grove City Methodist HospitalComment on above:Performed By: #### CBC, [id number], T4F, ETOH, LIPID, CMP, TSH3 wRFLX #### [facility] [address] [place] [address] Auto (RBC) [Mass/Vol]Ordered By: MICHAEL GURROLA on 14-04-7344VFHH (RBC) [Mass/Vol]33.1 g/dL32.0-35.0[facility] HospitalMCV [Entitic volume] by Automated countOrdered By: MICHAEL GURROLA on 27-23-8666YOU (RBC) [Entitic vol]86.2 qD67-632NmzscdljnCleveland Clinic Avon Hospital Comment on above:Performed By: #### CBC, [id number], T4F, ETOH, LIPID, CMP, TSH3 wRFLX #### [place] [address] USAMonocytes [#/volume] in Blood by Automated countOrdered By: MICHAEL GURROLA on 51-07-3707Whdgrwflj (Bld) [#/Vol]0.5 10*3/uL0.0-0.8[facility] HospitalComment on above:Performed By: #### CBC, [id number], T4F, ETOH, LIPID, CMP, TSH3 wRFLX #### [place] [address] USAMonocytes/100 leukocytes in Blood by Automated count Ordered By: MICHAEL GURRLOA on 07-96-5126Cyejmufqg/100 WBC (Bld)7.6 %.[facility] HospitalComment on above:Performed By: #### CBC, [id number], T4F, ETOH, LIPID, CMP, TSH3 wRFLX #### [facility] [address] [place] [address] USANeutrophils [#/volume] in Blood by Automated countOrdered By: MICHAEL GURROLA on 13-44-8212Pnpbsqfwkht (Bld) [#/Vol]5.4 10*3/uL1.8-7.7 [facility] HospitalComment on above:Performed By: #### CBC, [id number], T4F, ETOH, LIPID, CMP, TSH3 wRFLX #### [facility] [address] [place] [address] USANeutrophils/100 leukocytes in Blood by Automated count Ordered By: MICHAEL GURROLA on 63-15-2092Vzogqruosbd/100 WBC (Bld)77.6 %.[facility] HospitalComment on above:Performed By: #### CBC, [id number], T4F, ETOH, LIPID, CMP, TSH3 wRFLX #### [facility] [address] [place], [place] [address] USANucleated erythrocytes [Presence] in Blood by Automated countOrdered By: MICHAEL GURROLA on 40-89-4951Gtiswwgrs RBC Auto Ql (Bld)0.1 /100{WBC}0-0.5FOhioHealth Grove City Methodist HospitalPlatelet mean volume [Entitic volume] in Blood by Automated countOrdered By: MICHAEL GURROLA on 03-25-2025 Platelet mean volume (Bld) [Entitic vol]7.4 fL6.3-10.7FOhioHealth Grove City Methodist HospitalComment on above:Performed By: #### CBC, [id number], T4F, ETOH, LIPID, CMP, TSH3 wRFLX #### [facility] [address] [place], [place] [address] USAPlatelets [#/volume] in Blood by Automated countOrdered By: MICHAEL GURROLA on 80-64-1979Culqwydsv (Bld) [#/Vol]261 10*3/cI853-924UqpfzgblaCleveland Clinic Avon HospitalComment on above:Performed By: #### CBC, [id number], T4F, ETOH, LIPID, CMP, TSH3 wRFLX #### [facility] [address] [place] [id number] [facility] 03-24-2025L Specimen: [id number] Received: 03/25/25 Status: JOANNA Moraes Num: [id number] Spec Type: Surgical Subm Dr: MICHAEL GURROLA MD Tissues: A Ovary - Cyst, Non-Neoplastic (RIGHT OVARY) Procedures: HE/Caitlin, Gross/Micro L4 Age/ Patient Sex Location Account Attending Physician Barbra Claros 29/F 3S [id number] MICHAEL GURROLA MD SPEC NUM: [id number] RECD: 03/25/25 STATUS: JOANNA MORAES NUM: [id number] ABRAHAN: 03/24/[address] [facility] [address]: MICHAEL GURROLA MD ENTERED: 03/25/[address] [facility] [address]: SPEC TYPE: Surgical DEPT: S ENTERED BY: [id number] RECV BY: [id number] ORDERED: HE/3, Gross/Micro L4 ORDERED: HE/3, Gross/Micro [...] focal simple cysts. No papillations are identified. Technology [employer] sections are submitted in A1?A3. (3, ss, [id number] A) Microscopic Description Microscopic examination was completed. Specimen: [id number] Received: 03/25/25 Status: JOANNA Moraes Num: [id number] Spec Type: Surgical Subm Dr: MICHAEL GURROLA MD Tissues: A Ovary - Cyst, Non-Neoplastic (RIGHT OVARY) Procedures: HE/3, Gross/Micro L4 Patient: Barbra Claros [id number] (Continued) Specimen: [id number] Received: 03/25/25 (Continued) Signed (signature on file) Cristiano Mederos JR, MD 03/26/25 1046 Specimen: [id number] Received: 03/25/25 Status: JOANNA Moraes Num: [id number] Spec Type: Surgical Subm Dr: MICHAEL GURROLA MD Tissues: A Ovary - Cyst, Non-Neoplastic (RIGHT OVARY) Procedures: HE/3, Gross/Micro L4 Patient: Barbra Claros [id number] (Continued) Specimen: [id number] Received: 03/25/25 (Continued) CPT Codes 70039 Specimen: [id number] Received: 03/25/25 Status: JOANNA Kimmy Num: [id number] Spec Type: Surgical Subm Dr: MICHAEL GURROLA MD Tissues: A Ovary - Cyst, Non-Neoplastic (RIGHT OVARY) Procedures: HE/Caitlin, Gross/Micro L4 Patient: Barbra Claros [id number] (Continued) Signed (signature on file) Cristiano Mederos JR, MD 03/26/[address] [place] [address] Physician GroupCOVID CepheidOrdered By: Fe Cruz on 95-09-0719JSQU-CoV-2 (COVID-19) RNA MARICEL+probe Ql (Unsp spec)Negative [facility] HospitalNo Panel InformationOrdered By: Fe Cruz on 56-88-6866OND Influenza A (PCR)NegativeCleveland Clinic Avon HospitalPO Influenza B (PCR)NegativeCleveland Clinic Avon HospitalLaboratory - Chemistry and Chemistry - challengeOrdered By: Fe Cruz on 09-78-8965Uflagypzb Ql (U) [facility] HospitalGlucose (U) [Mass/Vol][facility] HospitalKetones Ql (U)[facility] pH (U)7.5 [pH][facility] Preblepecific gravity (U) [Rel density]1.020[facility] HospitalUrobilinogen (U) [Mass/Vol]0.2 mg/dLCleveland Clinic Avon HospitalLaboratory - Specimen informationOrdered By: Fe Cruz on 73-61-1320Mrormmgkwe (U)darkCleveland Clinic Avon Hospital Color (U)yellowCleveland Clinic Avon HospitalLaboratory - UrinalysisOrdered By: Fe Cruz on 81-46-3460Nlozickdr esterase Test strip Ql (U)Negative [facility] HospitalNitrite Ql (U)[facility] HospitalProtein Ql (U)NegativeC[facility] Clinic Avon HospitalNo Panel InformationOrdered By: Fe Cruz on 42-85-0597MTSHG Antigen (POC)[facility] HospitalQuick Strep (POC)[facility] HospitalCOVID Antigen (POC)[facility] HospitalQuick Strep (POC)[facility] HospitalUrine Occult Bloodtrace-intactCleveland Clinic Avon HospitalUrine Cultureon 78-49-3230Tytusvyc identified Cx Nom (U)ORGANISM: Strep agalactiae - (group b) (O:STRAGA) [place] Count 25,000 PERFORMED BY: [place] [address] PATHOLOGIST RESISTANCE WELDER AMBER HENNING M.D.NormalMorton Plant North Bay Hospital Physician GroupComment on above: Performed By: #### CBC, [id number], T4F, ETOH, LIPID, CMP, TSH3 wRFLX #### [facility] [address] [place] [address] USAUrine cultureOrdered By: Fe Cruz on 01-23-8481Czduxjjc identified Cx Nom (U)Strep agalactiae - (group b)AbnormalCleveland Clinic Avon HospitalBacteria identified Cx Nom (U)Strep agalactiae - (group b)Abnormal [facility] HospitalECG 12 lead ECGon 88-68-1649MAS 12 lead ECG [facility] Main [place] [address] [place] [address] Electrocardiograph Report Signed Patient: Barbra Claros MR#: [id number] : 1995 Acct:[id number] Age/Sex: 29 / F ADM Date: 01/22/25 Loc: Room: [address] [place] [address] Type: ADM IN Attending Dr: Dashawn Moreno [...] rhythm Normal ECG Confirmed by Rhoda Herring ([id number]) on 01/23/2025 11:22:11 AM Referred By: Electronically Signed By: Rhoda Herring Transcribed By: MUS Signed By Rhoda Herring MD [address] [place] [address] Physician GroupAlanine aminotransferase [Enzymatic activity/volume] in Serum or PlasmaOrdered By: Duane Simons on 01-22-2025 ALT [Catalytic activity/Vol]14 U/LNormal7-52[facility] Comment on above:Performed By: #### CBC, [id number], T4F, ETOH, LIPID, CMP, TSH3 wRFLX #### [facility] [address] [place] [id number] USAAlbumin [Mass/volume] in Serum or Plasma by Bromocresol green (BCG) dye binding methoOrdered By: Duane Simons on 15-25-6275Jivmtoj BCG dye [Mass/Vol]4.1 g/dL3.5-5.7FOhioHealth Grove City Methodist HospitalAlkaline phosphatase [Enzymatic activity/volume] in Serum or PlasmaOrdered By: Duane Simons on 87-48-5577WDM [Catalytic activity/Vol]61 U/IWuuquz38-211RecnqwiznCleveland Clinic Avon HospitalComment on above:Performed By: #### CBC, [id number], T4F, ETOH, LIPID, CMP, TSH3 wRFLX #### [facility] [address] [place] [address] USAAmphetamine Screen Ql (U)Ordered By: Duane Simons on 36-08-8674Euecsrhrklbz Ql (U)NegativeNegativeCleveland Clinic Avon Hospital Appearance of UrineOrdered By: Duane Simons on 36-20-5548Ptvipeyuqj (U) ClearNormalClearCleveland Clinic Avon HospitalComment on above:Order Comment: Name Collection Type:: Clean-Voided MidstreamPerformed By: #### CBC, [id number], T4F, ETOH, LIPID, CMP, TSH3 wRFLX #### [facility] [address] [place] [id number] USAAspartate aminotransferase [Enzymatic activity/volume] in Serum or PlasmaOrdered By: Duane Simons on 43-47-3815OAH [Catalytic activity/Vol]15 U/GXgamvc28-83XhynegqfkCleveland Clinic Avon HospitalComment on above: Performed By: #### CBC, [id number], T4F, ETOH, LIPID, CMP, TSH3 wRFLX #### [facility] [address] [place], [place] [address] USABacteria [Presence] in Urine by AutomatedOrdered By: Duane Simons on 51-52-3777Aeyetgrz Auto Ql (U)Rare [HPF]None SeenCleveland Clinic Avon HospitalBarbiturates [Presence] in Urine by Screen methodOrdered By: Duane Simons on 92-29-2498Matlpghfnaje Screen Ql (U)NegativeNegative [facility] HospitalBasophils [#/volume] in Blood by Automated countOrdered By: Duane Simons on 37-96-9981Vnvpqhkhd (Bld) [#/Vol]0.0 10*3/uLNormal0.0-0.2FOhioHealth Grove City Methodist HospitalComment on above:Result Comment: PERFORMED BY: [place] [address] PATHOLOGIST RESISTANCE WELDER AMBER HENNING M.D.Performed By: #### CBC, [id number], T4F, ETOH, LIPID, CMP, TSH3 wRFLX #### [facility] [address] [place] [address] USABasophils/100 leukocytes in Blood by Automated count Ordered By: Duane Simons on 09-60-6060Kfltihcrh/100 WBC (Bld)0.3 %Normal. [facility] HospitalComment on above:Performed By: #### CBC, [id number], T4F, ETOH, LIPID, CMP, TSH3 wRFLX #### [facility] [address] [place], [place] [id number] USABenzodiazepines Screen Ql (U)Ordered By: Duane Simons on 35-86-8940Etncxklvuhkzlqd Ql (U)NegativeNegProMedica Defiance Regional HospitalBenzoylecgonine [Presence] in Urine by Screen methodOrdered By: Duane Simons on 79-83-3460Kyggxswjxmgsyqs Screen Ql (U)NegativeNegProMedica Defiance Regional HospitalBilirubin Test strip Ql (U)Ordered By: Duane Simons on 86-58-9087Bnlosqeoh Ql (U)NegativeNegProMedica Defiance Regional Hospital Bilirubin.total [Mass/volume] in Serum or PlasmaOrdered By: Duane Simons on 23-46-0668Bvwfaccbv [Mass/Vol]0.2 mg/dLLow0.3-1.0[facility] HospitalComment on above:Performed By: #### CBC, [id number], T4F, ETOH, LIPID, CMP, TSH3 wRFLX #### [facility] [facility] [address] [place] [address] USACalcium [Mass/volume] in Serum or PlasmaOrdered By: Duane Simons on 50-56-0076Nlpibsm [Mass/Vol]8.8 mg/dLNormal8.6-10.3 [facility] HospitalComment on above:Performed By: #### CBC, [id number], T4F, ETOH, LIPID, CMP, TSH3 wRFLX #### [facility] [address] [place] [id number] USACannabinoids [Presence] in Urine by Screen methodOrdered By: Duane Simons on 41-93-5481Ykjfgzehswps Screen Ql (U)PositiveHigh NegativeCleveland Clinic Avon HospitalComment on above:These are unconfirmed results and should not be used for legal purposes. Drug Cut-Off Concentration: AMPH 1000 ng/mL FIONA 200 ng/mL KIMMY 200 ng/mL COCM 300 ng/mL OP 300 ng/mL PCP 25 ng/mL THC 20 ng/mLCarbon dioxide, total [Moles/volume] in Serum or Plasma Ordered By: Duane Simons on 82-09-9748JI0 [Moles/Vol]31.1 mmol/LHigh 21.0-31.0[facility] HospitalComment on above:Performed By: #### CBC, [id number], T4F, ETOH, LIPID, CMP, TSH3 wRFLX #### [facility] [address] [place] [id number] USAChloride [Moles/volume] in Serum or PlasmaOrdered By: Duane Simons on 62-57-2013Pitjtkbb [Moles/Vol]102 mmol/YHiktsn74-093 [facility] HospitalComment on above:Performed By: #### CBC, [id number], T4F, ETOH, LIPID, CMP, TSH3 wRFLX #### [facility] [address] [place] [id number] USAColor of Urine by AutoOrdered By: Duane Simons on 14-25-9993Noxtr (U)YellowNormalYFostoria City HospitalComment on above:Order Comment: Name Collection Type:: Clean-Voided MidstreamPerformed By: #### CBC, [id number], T4F, ETOH, LIPID, CMP, TSH3 wRFLX #### [facility] [address] [place] [address] USAComplete Blood Count Auto Diffon 32-72-7199Ruqk Corpuscular HGB Conc33.8 g/jCPfejtb96.0-35.0[facility] Physician GroupComment on above:Performed By: #### CBC, [id number], T4F, ETOH, LIPID, CMP, TSH3 wRFLX #### [place] [address] USAMonocytes/100 WBC (Bld)16.85 %Normal0.00-20.00The [facility] Physician GroupComment on above:Performed By: #### CBC, [id number], T4F, ETOH, LIPID, CMP, TSH3 wRFLX #### [place] [address] USANRBC%0.3 /100{WBC}Normal0-0.5[facility] Comment on above:Performed By: #### CBC, [id number], T4F, ETOH, LIPID, CMP, TSH3 wRFLX #### [place] [address] USAWhite Blood Count6.0 [CFU]/mLNormal3.8-11.6The [facility] Physician GroupComment on above:Performed By: #### CBC, [id number], T4F, ETOH, LIPID, CMP, TSH3 wRFLX #### [place] [address] USAComprehensive Metabolic Panelon 80-01-6684Hvulmnm [Mass/Vol]4.1 g/dLNormal3.5-5.7The [facility] Physician GroupComment on above: Performed By: #### CBC, [id number], T4F, ETOH, LIPID, CMP, TSH3 wRFLX #### [place] [address] USACreatinine Clr Calc Acyzangq076.47NormalThe [facility] Hospital Physician GroupComment on above:Result Comment: PERFORMED BY: [place] [address] PATHOLOGIST RESISTANCE WELDER AMBER HENNING M.D.Performed By: #### CBC, [id number], T4F, ETOH, LIPID, CMP, TSH3 wRFLX #### [place] [address] USAGFR/1.73 sq M.predicted MDRD (S/P/Bld) [Vol rate/Area] mL/min/{1.73_m2}NormalThe [facility] Hospital Physician GroupComment on above:Performed By: #### CBC, [id number], T4F, ETOH, LIPID, CMP, TSH3 wRFLX #### [place] [address] USACreatinine [Mass/volume] in Serum or PlasmaOrdered By: Duane Simons on 98-82-2333Yzkuoxfzhf [Mass/Vol]0.74 mg/dLNormal0.60-1.20 [facility] HospitalComment on above:Performed By: #### CBC, [id number], T4F, ETOH, LIPID, CMP, TSH3 wRFLX #### [place] [address] USADipstick and Microscopicon 74-81-2782Libejkpz,UrineRare NormalNone SeenThe [facility] Hospital Physician GroupComment on above:Order Comment: Name Collection Type:: Clean-Voided MidstreamPerformed By: #### CBC, [id number], T4F, ETOH, LIPID, CMP, TSH3 wRFLX #### [place] [address] USABilirubin,UrineNegativeNormalNegativeThe [facility] Physician GroupComment on above:Order Comment: Name Collection Type:: Clean- Voided MidstreamPerformed By: #### CBC, [id number], T4F, ETOH, LIPID, CMP, TSH3 wRFLX #### [facility] [address] [place] [address] USAGlucose Ql (U)NormalNormalNormalThSaint Alphonsus [facility] Center Physician GroupComment on above:Order Comment: Name Collection Type:: Clean-Voided MidstreamPerformed By: #### CBC, [id number], T4F, ETOH, LIPID, CMP, TSH3 wRFLX #### [facility] [address] [place] [address] USAHyaline Casts,UrineNoneNormal0-8The [facility] Physician GroupComment on above:Order Comment: Name Collection Type:: Clean-Voided MidstreamPerformed By: #### CBC, [id number], T4F, ETOH, LIPID, CMP, TSH3 wRFLX #### [place] [address] USAMucus,Urine2+ [LPF]Critically abnormalThe [facility] Physician GroupComment on above:Order Comment: Name Collection Type:: Clean- Voided MidstreamPerformed By: #### CBC, [id number], T4F, ETOH, LIPID, CMP, TSH3 wRFLX #### [place] [address] USANitrite,UrineNegativeNormalNegativeMorton Plant North Bay Hospital Physician GroupComment on above:Order Comment: Name Collection Type:: Clean-Voided MidstreamPerformed By: #### CBC, [id number], T4F, ETOH, LIPID, CMP, TSH3 wRFLX #### [place] [address] USAOccult Blood,UrineNegativeNormalNegativeMorton Plant North Bay Hospital Physician GroupComment on above:Order Comment: Name Collection Type:: Clean- Voided MidstreamPerformed By: #### CBC, [id number], T4F, ETOH, LIPID, CMP, TSH3 wRFLX #### [place] [address] USARBC,Gcoqa4-9Rglggw4-4Whe [facility] Physician GroupComment on above:Order Comment: Name Collection Type:: Clean-Voided MidstreamPerformed By: #### CBC, [id number], T4F, ETOH, LIPID, CMP, TSH3 wRFLX #### [place] [address] USASpecificy [place],Urine1.302Pxrz0.001-1.030The [facility] Physician GroupComment on above:Order Comment: Name Collection Type:: Clean- Voided MidstreamPerformed By: #### CBC, [id number], T4F, ETOH, LIPID, CMP, TSH3 wRFLX #### [place] [address] USASquamous Epithelial Cell,Asupj9-5Gbwatf2-0Mrt [facility] Physician GroupComment on above:Order Comment: Name Collection Type:: Clean- Voided MidstreamPerformed By: #### CBC, [id number], T4F, ETOH, LIPID, CMP, TSH3 wRFLX #### [place] [address] USAUrobilinogen,UrineNormalNormalNormalThe [facility] Physician GroupComment on above:Order Comment: Name Collection Type:: Clean- Voided MidstreamPerformed By: #### CBC, [id number], T4F, ETOH, LIPID, CMP, TSH3 wRFLX #### [place] [address] USAWBC,Dhtvi3-4Qiwjis4-2Ymz [facility] Physician GroupComment on above:Order Comment: Name Collection Type:: Clean-Voided MidstreamPerformed By: #### CBC, [id number], T4F, ETOH, LIPID, CMP, TSH3 wRFLX #### [place] [address] USADrug Screen,Urineon 53-06-7438Dhsgqudzfdd Screen,Urine NegativeNormalNegativeMorton Plant [facility] Hospital Physician GroupComment on above:Performed By: #### CBC, [id number], T4F, ETOH, LIPID, CMP, TSH3 wRFLX #### [place] [address] USABarbiturate Screen,UrineNegativeNormalNegativeThe [facility] Physician GroupComment on above:Performed By: #### CBC, [id number], T4F, ETOH, LIPID, CMP, TSH3 wRFLX #### [place] [address] USABenzodiazepines Screen,UrineNegativeNormalNegativeThe [facility] Physician GroupComment on above:Performed By: #### CBC, [id number], T4F, ETOH, LIPID, CMP, TSH3 wRFLX #### [place] [address] USACannabinoid Screen,UrinePositiveNormalNegativeThe [facility] Physician GroupComment on above:Result Comment: These are unconfirmed results and should not be used for legal purposes. Drug Cut-Off Concentration: AMPH 1000 ng/mL FIONA 200 ng/mL KIMMY 200 ng/mL COCM 300 ng/mL OP 300 ng/mL PCP 25 ng/mL THC 20 ng/mL PERFORMED BY: [place] [address] PATHOLOGIST RESISTANCE WELDER AMBER HENNING M.D.Performed By: #### CBC, [id number], T4F, ETOH, LIPID, CMP, TSH3 wRFLX #### [place] [address] USACocaine Screen,UrineNegativeNormalNegativeMorton Plant North Bay Hospital Physician GroupComment on above:Performed By: #### CBC, [id number], T4F, ETOH, LIPID, CMP, TSH3 wRFLX #### [place] [id number] USAOpiate Screen,UrineNegativeNormalNegativeMorton Plant North Bay Hospital Physician GroupComment on above:Performed By: #### CBC, [id number], T4F, ETOH, LIPID, CMP, TSH3 wRFLX #### [place] [address] USAPhencyclidine Screen,UrineNegativeNormalNegativeThe [facility] Physician GroupComment on above:Performed By: #### CBC, [id number], T4F, ETOH, LIPID, CMP, TSH3 wRFLX #### [facility] [address] [place] [address] USAEosinophils [#/volume] in Blood by Automated countOrdered By: Duane Simons on 87-45-1354Qwkqpgazmck (Bld) [#/Vol]0.0 10*3/uLNormal 0.0-0.45[facility] HospitalComment on above:Performed By: #### CBC, [id number], T4F, ETOH, LIPID, CMP, TSH3 wRFLX #### [place] [id number] USAEosinophils/100 leukocytes in Blood by Automated count Ordered By: Duane Simons on 36-89-1811Wjkzxcujkmh/100 WBC (Bld)0.1 %Normal. [facility] HospitalComment on above:Performed By: #### CBC, [id number], T4F, ETOH, LIPID, CMP, TSH3 wRFLX #### [place] [id number] USAEpithelial cells.squamous [#/area] in Urine sediment by Automated countOrdered By: Duane Simons on 14-00-6220Gxvgckjfis cells.squamous Auto (Urine sed) [#/Area]1-2 [HPF]0-2FOhioHealth Grove City Methodist HospitalErythrocyte distribution width [Ratio] by Automated countOrdered By: Duane Simons on 43-23-7016Zpzpolsistg distribution width (RBC) [Ratio]13.5 %Rfzzis30.9-15.3FOhioHealth Grove City Methodist HospitalComment on above:Performed By: #### CBC, [id number], T4F, ETOH, LIPID, CMP, TSH3 wRFLX #### [place] [id number] USAErythrocytes [#/area] in Urine sediment by Automated count Ordered By: Duane Simons on 72-67-3893KBL Auto (Urine sed) [#/Area]1-2 [HPF]0-4FOhioHealth Grove City Methodist HospitalErythrocytes [#/volume] in Blood by Automated countOrdered By: Duane Simons on 70-75-0521JJF (Bld) [#/Vol]3.93 10*6/uLNormal3.60-5.00[facility] HospitalComment on above: Performed By: #### CBC, [id number], T4F, ETOH, LIPID, CMP, TSH3 wRFLX #### [facility] [address] [place] [address] USAEthanol [Mass/volume] in Serum or PlasmaOrdered By: Duane Simons on 08-23-7101Wlznbke [Mass/Vol]mg/dLNoPremier Health Miami Valley HospitalComment on above:Performed By: #### CBC, [id number], T4F, ETOH, LIPID, CMP, TSH3 wRFLX #### [facility] [address] [place] [address] USAEthyl Alcohol Profileon 09-73-4217Zqfjact EthanolNot performedAdventHealth New Smyrna Beach Physician GroupComment on above:Result Comment: PERFORMED BY: [place] [id number] PATHOLOGIST RESISTANCE WELDER AMBER HENNING M.D.Performed By: #### CBC, [id number], T4F, ETOH, LIPID, CMP, TSH3 wRFLX #### [facility] [address] [place] [address] USAGlucose [Mass/volume] in Serum or PlasmaOrdered By: Duane Simons on 76-52-8824Oznonyl [Mass/Vol]84 mg/qVGkljun09-468QppajrckmCleveland Clinic Avon HospitalComment on above:ADA recommended reference rangeRandom Glucose Reference Range is dependent on time and content of last meal. Glucose of more than 200 mg/dL in a nonstressed, ambulatory subject supports the diagnosisof Diabetes Mellitus.Result Comment: Random Glucose Reference Range is dependent on time and content of last meal. Glucose of more than 200 mg/dL in a nonstressed, ambulatory subject supports the diagnosis of Diabetes Mellitus. ADA recommended reference rangePerformed By: #### CBC, [id number], T4F, ETOH, LIPID, CMP, TSH3 wRFLX #### [facility] [address] [place] [address] USAGlucose [Mass/volume] in Urine by Test stripOrdered By: Duane Simons on 61-50-4231Itwzxof Test strip (U) [Mass/Vol]Normal mg/dL NormalCleveland Clinic Avon HospitalHCG ( test) IA.rapid Ql (U) Ordered By: Duane Simons on 47-83-9611WYT ( test) Ql (U)Negative [facility] HospitalHCG,Urineon 41-49-9315Wzhg HCG ( test) Ql (U)NegativeAdventHealth New Smyrna Beach Physician GroupComment on above:Order Comment: Name Collection Type:: Clean-Voided MidstreamResult Comment: PERFORMED BY: [place] [address] PATHOLOGIST RESISTANCE WELDER AMBER HENNING M.D.Performed By: #### CBC, [id number], T4F, ETOH, LIPID, CMP, TSH3 wRFLX #### [place] [address] USAHematocrit [Volume Fraction] of Blood by Automated count Ordered By: Duane Simons on 02-63-7614Cdnypbzrfb (Bld) [Volume fraction] 34.0 %Nevkgm62.0-46.4FOhioHealth Grove City Methodist HospitalComment on above:Performed By: #### CBC, [id number], T4F, ETOH, LIPID, CMP, TSH3 wRFLX #### [place] [address] USAHemoglobin Test strip Ql (U)Ordered By: Duane Simons on 47-68-3922Fcddrgejzn Ql (U)NegativeNegativeCleveland Clinic Avon Hospital Hemoglobin [Mass/volume] in BloodOrdered By: Duane Simons on 01-22-2025 Hemoglobin (Bld) [Mass/Vol]11.5 g/dLLow11.8-15.4FOhioHealth Grove City Methodist HospitalComment on above:Performed By: #### CBC, [id number], T4F, ETOH, LIPID, CMP, TSH3 wRFLX #### [place] [address] USAHyaline casts [#/area] in Urine sediment by Automated countOrdered By: Duane Simons on 65-52-6254Xbxhqjw casts Auto (Urine sed) [#/Area]None [LPF]0-8[facility] HospitalKetones [Presence] in Urine by Test stripOrdered By: Duane Simons on 60-59-7432Ovmbflp Ql (U) NegativeNormalNegProMedica Defiance Regional HospitalComment on above:Order Comment: Name Collection Type:: Clean-Voided MidstreamPerformed By: #### CBC, [id number], T4F, ETOH, LIPID, CMP, TSH3 wRFLX #### [facility] [address] [place] [address] USALeukocyte esterase [Presence] in Urine by Test strip Ordered By: Duane Simons on 67-11-6296Jlkhildbn esterase Test strip Ql (U) NegativeNormalNegProMedica Defiance Regional HospitalComment on above:Order Comment: Name Collection Type:: Clean-Voided MidstreamPerformed By: #### CBC, [id number], T4F, ETOH, LIPID, CMP, TSH3 wRFLX #### [facility] [address] [place] [address] USALeukocytes [#/area] in Urine sediment by Automated count Ordered By: Duane Simons on 90-26-6927TVF Auto (Urine sed) [#/Area]1-2 [HPF]0-4FOhioHealth Grove City Methodist HospitalLeukocytes [#/volume] corrected for nucleated erythrocytes in Blood by Automated counOrdered By: Duane Simons on 61-67-7317KBI corrected for nucl RBC Auto (Bld) [#/Vol]6.0 10*3/uL3.8-11.6 [facility] HospitalLeukocytes [#/volume] in Blood by Automated countOrdered By: Duane Simons on 34-08-6086GLU (Bld) [#/Vol]6.0 10*3/uL Normal3.8-11.6FOhioHealth Grove City Methodist HospitalComment on above:Performed By: #### CBC, [id number], T4F, ETOH, LIPID, CMP, TSH3 wRFLX #### [facility] [address] [place] [address] USALipid Panelon 55-28-1458Jeyauuzmszb [Mass/Vol]204 mg/dL Hgqs060-123Vca [facility] Physician GroupComment on above:Result Comment: Chol less than 200 mg/dl low risk Chol 201-239 mg/dl borderline risk Chol 240 mg/dl and greater high riskPerformed By: #### [id number], TSH3 wRFLX, LIPID #### [facility] [address] [place] [address] USACholesterol in HDL [Mass/Vol]66 mg/gUKiyfho60-41Mqi [facility] Physician GroupComment on above:Result Comment: HDL CHOL ATP-III CLASSIFICATION Cardiovascular Risk HDL > or equal to 60 mg/dL LOW HDL < 40 mg/dL HIGHPerformed By: #### [id number], TSH3 wRFLX, LIPID #### [facility] [address] [place] [address] USACholesterol.total/Cholesterol in HDL [Mass ratio]3.1 {ratio}Normal<5.0The [facility] Physician GroupComment on above:Performed By: #### ENTH78ES, TSH3 wRFLX, LIPID #### [facility] [address] [place] [address] USALDL Cholesterol,Gygenluauf408 mg/dLHigh0-100The [facility] Physician GroupComment on above:Result Comment: LDL ATP III CLASSIFICATION LDL less than 100 mg/dL Optimal LDL 100-129 mg/dL Near or above optimal LDL 130-159 mg/dL Borderline high LDL 160-189 mg/dL High LDL greater than 189 mg/dL Very highPerformed By: #### [id number], TSH3 wRFLX, LIPID #### [facility] [address] [place] [address] USATriglyceride w/Bcizyd54 mg/dLNormal0-149The [facility] Physician GroupComment on above:Result Comment: TRIG ATP III CLASSIFICATION TRIG less than 150 mg/dL Normal TRIG 150-199 mg/dL Borderline high TRIG 200-500 mg/dL High TRIG greater than 500 mg/dL Very high Standard traceable to the Center for Disease Conrtrol and Prevention (CDC) test method.Performed By: #### [id number], TSH3 wRFLX, LIPID #### [facility] [address] [place] [address] USAVLDL TLIQAHYSRCA63 mg/dLNormalThe [facility] Physician GroupComment on above:Performed By: #### [id number], TSH3 wRFLX, LIPID #### [facility] [address] [place] [address] USALymphocytes [#/volume] in Blood by Automated countOrdered By: Duane Simons on 85-10-3643Nukxbyilgcm (Bld) [#/Vol]1.8 10*3/uLNormal 1.00-4.8[facility] HospitalComment on above:Performed By: #### CBC, [id number], T4F, ETOH, LIPID, CMP, TSH3 wRFLX #### [facility] [address] [place] [address] USALymphocytes/100 leukocytes in Blood by Automated count Ordered By: Duane Simons on 07-74-7775Dbulxftokzb/100 WBC (Bld)29.9 %Normal .[facility] HospitalComment on above:Performed By: #### CBC, [id number], T4F, ETOH, LIPID, CMP, TSH3 wRFLX #### [facility] [address] [place] [address] [facility] [Entitic mass] by Automated countOrdered By: Duane Simons on 49-10-0308CVH (RBC) [Entitic mass]29.2 opJkqwnv73.7-34.3FOhioHealth Grove City Methodist HospitalComment on above:Performed By: #### CBC, [id number], T4F, ETOH, LIPID, CMP, TSH3 wRFLX #### [facility] [address] [place] [address] [facility] Auto (RBC) [Mass/Vol]Ordered By: Duane Simons on 88-21-8873VDYH (RBC) [Mass/Vol]33.8 g/dL32.0-35.0[facility] HospitalMCV [Entitic volume] by Automated countOrdered By: Duane Simons on 97-76-6733FRP (RBC) [Entitic vol]86.6 xIQdrbqi80-506MibeurjbwCleveland Clinic Avon HospitalComment on above:Performed By: #### CBC, [id number], T4F, ETOH, LIPID, CMP, TSH3 wRFLX #### [facility] [address] [place] [address] USAMonocyte distribution width [Entitic volume] in Blood by AutomatedOrdered By: Duane Simons on 45-16-2804Iyvdjzjo distribution width Auto (Bld) [Entitic vol]16.85 %0.00-20.00[facility] Monocytes [#/volume] in Blood by Automated countOrdered By: Duane Simons on 91-25-8255Iboawlign (Bld) [#/Vol]0.5 10*3/uLNormal0.0-0.8[facility] HospitalComment on above:Performed By: #### CBC, [id number], T4F, ETOH, LIPID, CMP, TSH3 wRFLX #### [facility] [address] [place] [address] USAMonocytes/100 leukocytes in Blood by Automated count Ordered By: Duane Simons on 18-89-1631Monhhwcku/100 WBC (Bld)8.6 %Normal. [facility] HospitalComment on above:Performed By: #### CBC, [id number], T4F, ETOH, LIPID, CMP, TSH3 wRFLX #### [facility] [address] [place] [address] USAMucus [Presence] in Urine by AutomatedOrdered By: Duane Simons on 35-56-6765Ctvax Auto Ql (U)2+ [LPF]AbnormalCleveland Clinic Avon HospitalNeutrophils [#/volume] in Blood by Automated countOrdered By: Duane Simons on 46-32-2809Uqmgyzffgtz (Bld) [#/Vol]3.7 10*3/uLNormal 1.8-7.7FOhioHealth Grove City Methodist HospitalComment on above:Performed By: #### CBC, [id number], T4F, ETOH, LIPID, CMP, TSH3 wRFLX #### [facility] [address] [place] [address] USANeutrophils/100 leukocytes in Blood by Automated count Ordered By: Duane Simons on 89-47-0337Arqsroriqlb/100 WBC (Bld)61.1 %Normal .[facility] HospitalComment on above:Performed By: #### CBC, [id number], T4F, ETOH, LIPID, CMP, TSH3 wRFLX #### [facility] [address] [place] [address] USANitrite Test strip Ql (U)Ordered By: Duane Simons on 02-20-3818Midulds Ql (U)NegativeNegProMedica Defiance Regional HospitalNo Panel InformationOrdered By: Duane Simons on 03-98-1803Gbkjjawqe GFR (CKD-EPI)> 60.0 mL/MinCleveland Clinic Avon HospitalPharmacy Creatinine Clearance (Yaxh616.47[facility] HospitalNucleated erythrocytes [Presence] in Blood by Automated countOrdered By: Duane Simons on 14-78-2460Sivsbqpdw RBC Auto Ql (Bld)0.3 /100{WBC}0-0.5FOhioHealth Grove City Methodist HospitalOpiates [Presence] in Urine by Screen methodOrdered By: Duane Simons on 04-73-4453Krlkvgz Screen Ql (U)NegativeNegProMedica Defiance Regional HospitalPhencyclidine Screen Ql (U)Ordered By: Duane Simons on 45-11-0380Lcysheontyduu Ql (U)NegativeNegProMedica Defiance Regional Hospital Platelet mean volume [Entitic volume] in Blood by Automated countOrdered By: Duane Simons on 91-22-1134Dbiasgpt mean volume (Bld) [Entitic vol]7.2 fL Normal6.3-10.7FOhioHealth Grove City Methodist HospitalComment on above:Performed By: #### CBC, [id number], T4F, ETOH, LIPID, CMP, TSH3 wRFLX #### [facility] [address] [place] [address] USAPlatelets [#/volume] in Blood by Automated countOrdered By: Duane Simons on 08-05-1994Nzhfnutzr (Bld) [#/Vol]231 10*3/uLNormal 150-450[facility] HospitalComment on above:Performed By: #### CBC, [id number], T4F, ETOH, LIPID, CMP, TSH3 wRFLX #### [facility] [address] [place], [place] [address] USAPotassium [Moles/volume] in Serum or PlasmaOrdered By: Duane Simons on 13-10-7952Oamhnwzzi [Moles/Vol]4.2 mmol/LNormal3.5-5.1 [facility] HospitalComment on above:Performed By: #### CBC, [id number], T4F, ETOH, LIPID, CMP, TSH3 wRFLX #### [place] [id number] USAProtein [Mass/volume] in Serum or PlasmaOrdered By: Duane Simons on 44-95-4993Otckicp [Mass/Vol]6.9 g/dLNormal6.4-8.9[facility] HospitalComment on above:Performed By: #### CBC, [id number], T4F, ETOH, LIPID, CMP, TSH3 wRFLX #### [place] [address] USAProtein [Mass/volume] in Urine by Test stripOrdered By: Duane Simons on 46-05-6340Ulwykzy (U) [Mass/Vol]20 mg/dLNormalNegative [facility] HospitalComment on above:Order Comment: Name Collection Type:: Clean-Voided MidstreamPerformed By: #### CBC, [id number], T4F, ETOH, LIPID, CMP, TSH3 wRFLX #### [address] [address] USASerum globulin measurement by calculation (mass/volume) Ordered By: Duane Simons on 27-10-1363Qglakasw (S) [Mass/Vol]2.8 g/dLNormal [facility] HospitalComment on above:Performed By: #### CBC, [id number], T4F, ETOH, LIPID, CMP, TSH3 wRFLX #### [place] [id number] USASerum or plasma albumin/globulin mass ratioOrdered By: Duane Simons on 02-17-2211Grvpyvy/Globulin [Mass ratio]1.5 {ratio}Normal [facility] HospitalComment on above:Performed By: #### CBC, [id number], T4F, ETOH, LIPID, CMP, TSH3 wRFLX #### [facility] [address] [place] [address] USASerum or plasma anion gap determinationOrdered By: Duane Simons on 27-81-9469Rgkzz gap [Moles/Vol]8.1 mmol/LNormal6.0-15.0 [facility] HospitalComment on above:Performed By: #### CBC, [id number], T4F, ETOH, LIPID, CMP, TSH3 wRFLX #### [facility] [address] [place] [address] USASerum or plasma ethanol measurement (mass/volume)Ordered By: Duane Simons on [id number] [Mass/Vol]TNPCleveland Clinic Avon HospitalComment on above:Test not performedSodium [Moles/volume] in Serum or PlasmaOrdered By: Duane Simons on [id number] [Moles/Vol]137 mmol/L Jkswir490-052GgrwrpqldCleveland Clinic Avon HospitalComment on above:Performed By: #### CBC, [id number], T4F, ETOH, LIPID, CMP, TSH3 wRFLX #### [facility] [address] [place] [address] USASpecific gravity Test strip (U) [Rel density]Ordered By: Duane Simons on 81-56-2876Jlqjgejo gravity (U) [Rel density]1.033High 1.001-1.030[facility]on HospitalThyroid Stim Hormone w/Rflxon 79-15-3866Rvbtxdb Stim Hormone w/Rflx0.94 u[iU]/mLNormal0.45-5.33The [facility] Physician GroupComment on above:Performed By: #### [id number], TSH3 wRFLX, LIPID #### [facility] [address] [place] [address] USAUrea nitrogen [Mass/volume] in Serum or PlasmaOrdered By: Duane Simons on 54-22-3046Qnhn nitrogen [Mass/Vol]11 mg/dLNormal7-25 [facility] HospitalComment on above:Performed By: #### CBC, [id number], T4F, ETOH, LIPID, CMP, TSH3 wRFLX #### [facility] [address] [place] [address] USAUrobilinogen Test strip (U) [Mass/Vol]Ordered By: Duane Simons on 57-48-5044Ofuiarxmicsj (U) [Mass/Vol]Normal mg/dLNormal [facility] HospitalVitamin D 25 Hydroxy Totalon 89-92-8424Ghcvwso D 25 Hydroxy Total14.1 ng/mAUii18-939Ezi [facility] Physician GroupComment on above:Result Comment: VITAMIN D STATUS 25(OH)VITAMIN D RANGE (ng/mL) Deficient <20 Insufficient 20 to <30 Sufficient 30 to 100 Reference: Malou MF,Roly NC, Kassidy SHAH, et al. Evaluation,treatment, and prevention of vitamin D deficiency; an Endocrine Society clinical practice guideline. JCEM. 2010; 96(7):1911-30. PERFORMED BY: [place] [address] PATHOLOGIST RESISTANCE WELDER AMBER HENNING M.D.Performed By: #### [id number], TSH3 wRFLX, LIPID #### [address] [address] USApH of Urine by Test stripOrdered By: Duane Simons on 23-42-2557jY (U)6.5 [pH]Normal5.0-9.0[facility] Avon HospitalComment on above:Order Comment: Name Collection Type:: Clean-Voided MidstreamPerformed By: #### CBC, [id number], T4F, ETOH, LIPID, CMP, TSH3 wRFLX #### [address] [address] USAECG 12 lead ECGon 43-99-0640BCN 12 lead ECGSOUTHWEST [facility] Main [place] [address] [place] [id number] Electrocardiograph Report Signed Patient: Barbra Claros MR#: [id number] : 1995 Acct:[id number] Age/Sex: 29 / F ADM Date: 12/29/24 Loc: Room: 7K8100-6 Type: ADM IN Attending Dr: Kit Gutierrez [...] Normal sinus rhythm Confirmed by Stevan Orozco ([id number]) on 12/30/2024 6:12:06 PM Referred By: Electronically Signed By: Stevan Orozco Transcribed By: MUS Signed By Stevan Orozco MD 12/30/24 [facility] CenterAd[facility] Physician GroupAlanine aminotransferase [Enzymatic activity/volume] in Serum or PlasmaOrdered By: Norah Sykes on 70-04-6092UCL [Catalytic activity/Vol]59 U/LHigh7-52[facility] HospitalComment on above:Performed By: #### CBC, [id number], T4F, ETOH, LIPID, CMP, TSH3 wRFLX #### [facility] [address] [place] [address] USAAlbumin [Mass/volume] in Serum or Plasma by Bromocresol green (BCG) dye binding methoOrdered By: Norah Sykes on 09-23-7169Dhouuqt BCG dye [Mass/Vol]4.0 g/dL3.5-5.7FOhioHealth Grove City Methodist HospitalAlkaline phosphatase [Enzymatic activity/volume] in Serum or PlasmaOrdered By: Norah Sykes on 44-72-7153JJC [Catalytic activity/Vol]70 U/PTmkoou87-059YajumsnhuCleveland Clinic Avon HospitalComment on above:Performed By: #### CBC, [id number], T4F, ETOH, LIPID, CMP, TSH3 wRFLX #### [facility] [address] [place] [id number] USAAmphetamine Screen Ql (U)Ordered By: Norah Sykes on 69-56-1897Jcuggmbzfamq Ql (U)NegativeNegativeCleveland Clinic Avon Hospital Appearance of UrineOrdered By: Norah Sykes on 23-30-2480Jtvhroxdif (U)Clear NormalCleWhite HospitalComment on above:Order Comment: Name Collection Type:: Clean-Voided MidstreamPerformed By: #### [id number], TSH3 wRFLX, LIPID #### [facility] [address] [place] [address] USAAspartate aminotransferase [Enzymatic activity/volume] in Serum or PlasmaOrdered By: Norah Sykes on 42-91-3874XJM [Catalytic activity/Vol]28 U/HBliicj95-27RnpinvvolCleveland Clinic Avon HospitalComment on above: Performed By: #### CBC, [id number], T4F, ETOH, LIPID, CMP, TSH3 wRFLX #### [facility] [address] [place], [place] [address] USABacteria [Presence] in Urine by AutomatedOrdered By: Norah Sykes on 01-19-7233Kylglxta Auto Ql (U)Rare [HPF]None SeenCleveland Clinic Avon HospitalBarbiturates [Presence] in Urine by Screen methodOrdered By: Norah Sykes on 27-43-3639Ttdgiyyvqukd Screen Ql (U)NegativeNegative [facility] HospitalBasophils [#/volume] in Blood by Automated countOrdered By: Norah Sykes on 02-34-8406Fkybblmaa (Bld) [#/Vol]0.0 10*3/uL Normal0.0-0.2FOhioHealth Grove City Methodist HospitalComment on above:Result Comment: PERFORMED BY: [place] [id number] PATHOLOGIST RESISTANCE WELDER AMBER HENNING M.D.Performed By: #### CBC, [id number], T4F, ETOH, LIPID, CMP, TSH3 wRFLX #### [facility] [address] [place] [id number] USABasophils/100 leukocytes in Blood by Automated count Ordered By: Norah Sykes on 32-19-2534Ytaihjdnw/100 WBC (Bld)0.5 %Normal. [facility] HospitalComment on above:Performed By: #### CBC, [id number], T4F, ETOH, LIPID, CMP, TSH3 wRFLX #### [facility] [address] [place] [address] USABenzodiazepines Screen Ql (U)Ordered By: Norah Sykes on 30-77-6573Eeggzdvwxxuppvf Ql (U)NegativeNegProMedica Defiance Regional HospitalBenzoylecgonine [Presence] in Urine by Screen methodOrdered By: Norah Sykes on 72-73-5472Ktgwvemybleaorw Screen Ql (U)NegativeNegProMedica Defiance Regional HospitalBilirubin Test strip Ql (U)Ordered By: Norah Sykes on 30-48-7143Eciltgxsd Ql (U)2+HighNegativeCleveland Clinic Avon Hospital Bilirubin.total [Mass/volume] in Serum or PlasmaOrdered By: Norah Sykes on 84-60-3068Ocyreoccw [Mass/Vol]0.2 mg/dLLow0.3-1.0[facility] HospitalComment on above:Performed By: #### CBC, [id number], T4F, ETOH, LIPID, CMP, TSH3 wRFLX #### [facility] [address] [place], [place] [address] USACalcium [Mass/volume] in Serum or PlasmaOrdered By: Norah Sykes on 05-33-5566Towpwcx [Mass/Vol]8.4 mg/dLLow8.6-10.3FOhioHealth Grove City Methodist HospitalComment on above:Performed By: #### CBC, [id number], T4F, ETOH, LIPID, CMP, TSH3 wRFLX #### [facility] [address] [place], [place] [phone] USACannabinoids [Presence] in Urine by Screen methodOrdered By: Norah Sykes on 98-26-5852Duqdxozsxqar Screen Ql (U)PositiveHighNegative [facility] HospitalComment on above:These are unconfirmed results and should not be used for legal purposes. Drug Cut-Off Concentration: AMPH 1000 ng/mL FIONA 200 ng/mL KIMMY 200 ng/mL COCM 300 ng/mL OP 300 ng/mL PCP 25 ng/mL THC 20 ng/mLCarbon dioxide, total [Moles/volume] in Serum or PlasmaOrdered By: Norah Sykes on 57-68-9292PB5 [Moles/Vol]29.6 mmol/FMetdlv52.0-31.0[facility] HospitalComment on above:Performed By: #### CBC, [id number], T4F, ETOH, LIPID, CMP, TSH3 wRFLX #### [facility] [address] [place] [address] USAChloride [Moles/volume] in Serum or PlasmaOrdered By: Norah Sykes on 36-88-3681Ntzosuol [Moles/Vol]107 mmol/ZTvdscc01-024NrohktrtmCleveland Clinic Avon HospitalComment on above:Performed By: #### CBC, [id number], T4F, ETOH, LIPID, CMP, TSH3 wRFLX #### [facility] [address] [place] [address] USAColor of Urine by AutoOrdered By: Norah Sykes on 46-29-3704Ofarf (U)Light-yellowNormalYellowCleveland Clinic Avon Hospital Comment on above:Order Comment: Name Collection Type:: Clean-Voided Midstream Performed By: #### [id number], TSH3 wRFLX, LIPID #### [place] [id number] USAComplete Blood Count Auto Diffon 96-94-3484Pquy Corpuscular HGB Conc33.0 g/tMSjvlcq78.0-35.0The [facility] Physician GroupComment on above:Performed By: #### CBC, [id number], T4F, ETOH, LIPID, CMP, TSH3 wRFLX #### [place] [id number] USAMonocytes/100 WBC (Bld)16.20 %Normal0.00-20.00The [facility] Physician GroupComment on above:Performed By: #### CBC, [id number], T4F, ETOH, LIPID, CMP, TSH3 wRFLX #### [place] [id number] USANRBC%0.2 /100{WBC}Normal0-0.5[facility] Comment on above:Performed By: #### CBC, [id number], T4F, ETOH, LIPID, CMP, TSH3 wRFLX #### [place] [address] USAWhite Blood Count5.6 [CFU]/mLNormal3.8-11.6The [facility] Physician GroupComment on above:Performed By: #### CBC, [id number], T4F, ETOH, LIPID, CMP, TSH3 wRFLX #### [place] [address] USAComprehensive Metabolic Panelon 58-48-5262Uwyjzfe [Mass/Vol]4.0 g/dLNormal3.5-5.7[facility] Physician [facility] CenterComment on above: Performed By: #### CBC, [id number], T4F, ETOH, LIPID, CMP, TSH3 wRFLX #### [place] [address] USACreatinine Clr Calc Thhvjtpa237.36NormalThe [facility] Hospital Physician GroupComment on above:Result Comment: PERFORMED BY: [place] [address] PATHOLOGIST RESISTANCE WELDER AMBER HENNING M.D.Performed By: #### CBC, [id number], T4F, ETOH, LIPID, CMP, TSH3 wRFLX #### [place] [address] USAGFR/1.73 sq M.predicted MDRD (S/P/Bld) [Vol rate/Area] mL/min/{1.73_m2}NormalThe Select Specialty Hospital - ErieComment on above:Performed By: #### CBC, [id number], T4F, ETOH, LIPID, CMP, TSH3 wRFLX #### [place] [address] USACreatinine [Mass/volume] in Serum or PlasmaOrdered By: Norah Sykes on 59-73-0468Tdmsnsyobh [Mass/Vol]0.69 mg/dLNormal0.60-1.20 [facility] HospitalComment on above:Performed By: #### CBC, [id number], T4F, ETOH, LIPID, CMP, TSH3 wRFLX #### [facility] [address] [place] [address] USADipstick and Microscopicon 48-60-8824Fknchxjv,UrineRare NormalNone SeenMorton Plant North Bay Hospital Physician GroupComment on above:Order Comment: Name Collection Type:: Clean-Voided MidstreamPerformed By: #### [id number], TSH3 wRFLX, LIPID #### [facility] [address] [place] [address] USABilirubin,Urine2+NormalNegativeMorton Plant North Bay Hospital Physician GroupComment on above:Order Comment: Name Collection Type:: Clean-Voided MidstreamPerformed By: #### [id number], TSH3 wRFLX, LIPID #### [place] [address] USAGlucose Ql (U)NormalNormalNormalThSaint Alphonsus [facility] Center Physician GroupComment on above:Order Comment: Name Collection Type:: Clean-Voided MidstreamPerformed By: #### [id number], TSH3 wRFLX, LIPID #### [facility] [address] [place] [address] USAHyaline Casts,UrineNoneNormal0-8The [facility] Physician GroupComment on above:Order Comment: Name Collection Type:: Clean-Voided MidstreamPerformed By: #### [id number], TSH3 wRFLX, LIPID #### [place] [address] USAMucus,UrineRareNormalThe [facility] Physician GroupComment on above:Order Comment: Name Collection Type:: Clean-Voided MidstreamPerformed By: #### [id number], TSH3 wRFLX, LIPID #### [facility] [address] [place] [address] USANitrite,UrineNegativeNormalNegativeMorton Plant North Bay Hospital Physician GroupComment on above:Order Comment: Name Collection Type:: Clean-Voided MidstreamPerformed By: #### [id number], TSH3 wRFLX, LIPID #### [place] [address] USAOccult Blood,UrineNegativeNormalNegativeMorton Plant North Bay Hospital Physician GroupComment on above:Order Comment: Name Collection Type:: Clean- Voided MidstreamPerformed By: #### [id number], TSH3 wRFLX, LIPID #### [place] [address] USAProtein,UrineTraceNormalNegativeMorton Plant North Bay Hospital Physician GroupComment on above:Order Comment: Name Collection Type:: Clean-Voided MidstreamPerformed By: #### [id number], TSH3 wRFLX, LIPID #### [place] [address] USARBC,Wlxvw2-4Wnvemj3-8Qod [facility] Physician GroupComment on above:Order Comment: Name Collection Type:: Clean-Voided MidstreamPerformed By: #### [id number], TSH3 wRFLX, LIPID #### [place] [address] USASpecificy [place],Urine1.636Dzcque2.001-1.030[facility] Physician GroupComment on above:Order Comment: Name Collection Type:: Clean- Voided MidstreamPerformed By: #### [id number], TSH3 wRFLX, LIPID #### [facility] [address] [place] [address] USASquamous Epithelial Cell,Uhkew3-1Iwtlxy8-7Bnr [facility] Physician GroupComment on above:Order Comment: Name Collection Type:: Clean- Voided MidstreamPerformed By: #### [id number], TSH3 wRFLX, LIPID #### [facility] [address] [place] [address] USAUrobilinogen,Urine2 mg/dLNormalNormalThe [facility] Physician GroupComment on above:Order Comment: Name Collection Type:: Clean- Voided MidstreamPerformed By: #### [id number], TSH3 wRFLX, LIPID #### [facility] [address] [place] [address] USAWBC,Ncydo8-4Thiuit4-8Kul [facility] Physician GroupComment on above:Order Comment: Name Collection Type:: Clean-Voided MidstreamPerformed By: #### [id number], TSH3 wRFLX, LIPID #### [place] [address] USADrug Screen,Urineon 50-39-1584Uteyzwqxhiq Screen,Urine NegativeNormalNegativeThe [facility] Physician GroupComment on above:Performed By: #### UFUR14DE, TSH3 wRFLX, LIPID #### [place] [address] USABarbiturate Screen,UrineNegativeNormalNegativeThe [facility] Physician GroupComment on above:Performed By: #### [id number], TSH3 wRFLX, LIPID #### [place] [address] USABenzodiazepines Screen,UrineNegativeNormalNegativeThe [facility] Physician GroupComment on above:Performed By: #### [id number], TSH3 wRFLX, LIPID #### [place] [address] USACannabinoid Screen,UrinePositiveNormalNegativeThe [facility] Physician GroupComment on above:Result Comment: These are unconfirmed results and should not be used for legal purposes. Drug Cut-Off Concentration: AMPH 1000 ng/mL FIONA 200 ng/mL KIMMY 200 ng/mL COCM 300 ng/mL OP 300 ng/mL PCP 25 ng/mL THC 20 ng/mL PERFORMED BY: [place] [address] PATHOLOGIST RESISTANCE WELDER AMBER HENNING M.D.Performed By: #### [id number], TSH3 wRFLX, LIPID #### [place] [address] USACocaine Screen,UrineNegativeNormalNegativeMorton Plant North Bay Hospital Physician GroupComment on above:Performed By: #### [id number], TSH3 wRFLX, LIPID #### [place] [address] USAOpiate Screen,UrineNegativeNormalNegativeMorton Plant North Bay Hospital Physician GroupComment on above:Performed By: #### [id number], TSH3 wRFLX, LIPID #### [facility] [address] [place] [address] USAPhencyclidine Screen,UrineNegativeNormalNegativeThe [facility] Physician GroupComment on above:Performed By: #### [id number], TSH3 wRFLX, LIPID #### [facility] [address] [place] [address] USAEosinophils [#/volume] in Blood by Automated countOrdered By: Norah Sykes on 59-43-4562Ytfrqskgsaj (Bld) [#/Vol]0.0 10*3/uLNormal 0.0-0.45[facility] HospitalComment on above:Performed By: #### CBC, [id number], T4F, ETOH, LIPID, CMP, TSH3 wRFLX #### [facility] [address] [place] [id number] USAEosinophils/100 leukocytes in Blood by Automated count Ordered By: Norah Sykes on 31-47-8103Ytswafvghds/100 WBC (Bld)0.0 %Normal. [facility] HospitalComment on above:Performed By: #### CBC, [id number], T4F, ETOH, LIPID, CMP, TSH3 wRFLX #### [facility] [address] [place] [id number] USAEpithelial cells.squamous [#/area] in Urine sediment by Automated countOrdered By: Norah Sykes on 68-13-4050Uwcjrolxjh cells.squamous Auto (Urine sed) [#/Area]1-2 [HPF]0-2FOhioHealth Grove City Methodist Hospital Erythrocyte distribution width [Ratio] by Automated countOrdered By: Norah Sykes on 48-54-4017Dhcxqjmjwgb distribution width (RBC) [Ratio]13.9 %Normal 11.9-15.3FOhioHealth Grove City Methodist HospitalComment on above:Performed By: #### CBC, [id number], T4F, ETOH, LIPID, CMP, TSH3 wRFLX #### [facility] [address] [place] [id number] USAErythrocytes [#/area] in Urine sediment by Automated count Ordered By: Norah Sykes on 07-38-2067WTR Auto (Urine sed) [#/Area]1-2 [HPF] 0-4FOhioHealth Grove City Methodist HospitalErythrocytes [#/volume] in Blood by Automated countOrdered By: Norah Sykes on 87-23-1439VGU (Bld) [#/Vol]3.66 10*6/uLNormal3.60-5.00[facility] HospitalComment on above: Performed By: #### CBC, IHIU67IA, T4F, ETOH, LIPID, CMP, TSH3 wRFLX #### [facility] [address] [place] [id number] USAEthanol [Mass/volume] in Serum or PlasmaOrdered By: Norah Sykes on 02-53-1758Anbhrsn [Mass/Vol]mg/dLNoPremier Health Miami Valley HospitalComment on above:Performed By: #### CBC, AMGY64PN, T4F, ETOH, LIPID, CMP, TSH3 wRFLX #### [place] [address] USAEthyl Alcohol Profileon 05-52-9848Pnybjht EthanolNot performedNoNovant Health / NHRMC Physician [facility] Medical CenterComment on above:Result Comment: PERFORMED BY: [place] [address] PATHOLOGIST RESISTANCE WELDER AMBER HENNING M.D.Performed By: #### CBC, [id number], T4F, ETOH, LIPID, CMP, TSH3 wRFLX #### [place] [id number] USAFree T4 (Free Thyroxine)on 07-75-4586Aiws T4 [Mass/Vol] 0.59 ng/dLLow0.61-1.12The [facility] Physician [facility] Medical CenterComment on above:Performed By: #### CBC, [id number], T4F, ETOH, LIPID, CMP, TSH3 wRFLX #### [place] [id number] USAGlucose [Mass/volume] in Serum or PlasmaOrdered By: Norah Sykes on 41-44-7825Bnqydix [Mass/Vol]80 mg/uIHvwnkg41-577WlrfxtunpCleveland Clinic Avon HospitalComment on above:ADA recommended reference rangeRandom Glucose Reference Range is dependent on time and content of last meal. Glucose of more than 200 mg/dL in a nonstressed, ambulatory subject supports the diagnosisof Diabetes Mellitus.Result Comment: Random Glucose Reference Range is dependent on time and content of last meal. Glucose of more than 200 mg/dL in a nonstressed, ambulatory subject supports the diagnosis of Diabetes Mellitus. ADA recommended reference rangePerformed By: #### CBC, [id number], T4F, ETOH, LIPID, CMP, TSH3 wRFLX #### [facility] [address] [place], [place] [address] USAGlucose [Mass/volume] in Urine by Test stripOrdered By: Norah Sykes on 37-11-5346Kxjaatn Test strip (U) [Mass/Vol]Normal mg/dLNormal [facility] HospitalHCG ( test) IA.rapid Ql (U)Ordered By: Norah Sykes on 28-89-8900PUC ( test) Ql (U)NegativeCleveland Clinic Avon HospitalHCG,Urineon 18-56-3758Zwqf HCG ( test) Ql (U) NegativeNoNovant Health / NHRMC Physician GroupComment on above:Order Comment: Name Collection Type:: Clean-Voided MidstreamResult Comment: PERFORMED BY: [place] [address] PATHOLOGIST RESISTANCE WELDER AMBER HENNING M.D.Performed By: #### [id number], TSH3 wRFLX, LIPID #### [address] [address] USAHematocrit [Volume Fraction] of Blood by Automated count Ordered By: Norah Sykes on 05-10-4005Gqrgqmrdpn (Bld) [Volume fraction]32.3 % Low34.0-46.4FOhioHealth Grove City Methodist HospitalComment on above:Performed By: #### CBC, [id number], T4F, ETOH, LIPID, CMP, TSH3 wRFLX #### [address] [address] USAHemoglobin Test strip Ql (U)Ordered By: Norah Sykes on 23-58-9939Exhxpjisuc Ql (U)NegativeNegProMedica Defiance Regional Hospital Hemoglobin [Mass/volume] in BloodOrdered By: Norah Sykes on 12-29-2024 Hemoglobin (Bld) [Mass/Vol]10.6 g/dLLow11.8-15.4FOhioHealth Grove City Methodist HospitalComment on above:Performed By: #### CBC, [id number], T4F, ETOH, LIPID, CMP, TSH3 wRFLX #### [facility] [address] [place] [id number] USAHyaline casts [#/area] in Urine sediment by Automated countOrdered By: Norah Sykes on 55-02-0365Ujmjsqm casts Auto (Urine sed) [#/Area]None [LPF]0-8[facility] HospitalKetones [Presence] in Urine by Test stripOrdered By: Norah Sykes on 30-17-4183Phwhxeo Ql (U) NegativeNormTrinity Health System East CampusComment on above:Order Comment: Name Collection Type:: Clean-Voided MidstreamPerformed By: #### [id number], TSH3 wRFLX, LIPID #### [facility] [address] [place], [place] [address] USALeukocyte esterase [Presence] in Urine by Test strip Ordered By: Norah Sykes on 48-71-2491Fvbyzdmsi esterase Test strip Ql (U) NegativeHolzer Health SystemComment on above:Order Comment: Name Collection Type:: Clean-Voided MidstreamPerformed By: #### [id number], TSH3 wRFLX, LIPID #### [facility] [address] [place], [place] [address] USALeukocytes [#/area] in Urine sediment by Automated count Ordered By: Norah Sykes on 24-33-8317OXP Auto (Urine sed) [#/Area]1-2 [HPF] 0-4FOhioHealth Grove City Methodist HospitalLeukocytes [#/volume] corrected for nucleated erythrocytes in Blood by Automated counOrdered By: Norah Sykes on 71-02-1725ENY corrected for nucl RBC Auto (Bld) [#/Vol]5.6 10*3/uL3.8-11.6 [facility] HospitalLeukocytes [#/volume] in Blood by Automated countOrdered By: Norah Sykes on 76-51-6447WDE (Bld) [#/Vol]5.6 10*3/uLNormal 3.8-11.6FOhioHealth Grove City Methodist HospitalComment on above:Performed By: #### CBC, [id number], T4F, ETOH, LIPID, CMP, TSH3 wRFLX #### [facility] [address] [place] [address] USALipid Panelon 06-35-2199Dvcmlqdfnek [Mass/Vol]199 mg/dL Benxdl243-562Kss [facility] Physician GroupComment on above:Result Comment: Chol less than 200 mg/dl low risk Chol 201-239 mg/dl borderline risk Chol 240 mg/dl and greater high riskPerformed By: #### CBC, SVLU99IC, T4F, ETOH, LIPID, CMP, TSH3 wRFLX #### [facility] [address] [place] [address] USACholesterol in HDL [Mass/Vol]65 mg/dGZrdnrx72-69Xaz [facility] - ErieComment on above:Result Comment: HDL CHOL ATP-III CLASSIFICATION Cardiovascular Risk HDL > or equal to 60 mg/dL LOW HDL < 40 mg/dL HIGHPerformed By: #### CBC, [id number], T4F, ETOH, LIPID, CMP, TSH3 wRFLX #### [facility] [address] [place] [address] USACholesterol.total/Cholesterol in HDL [Mass ratio]3.1 {ratio}Normal<5.0The [facility] Hospital - ErieComment on above:Performed By: #### CBC, [id number], T4F, ETOH, LIPID, CMP, TSH3 wRFLX #### [facility] [address] [place] [address] USALDL Cholesterol,Ncrtqvhsrn157 mg/dLHigh0-100The [facility] Hospital - ErieComment on above:Result Comment: LDL ATP III CLASSIFICATION LDL less than 100 mg/dL Optimal LDL 100-129 mg/dL Near or above optimal LDL 130-159 mg/dL Borderline high LDL 160-189 mg/dL High LDL greater than 189 mg/dL Very highPerformed By: #### CBC, GTBD16GN, T4F, ETOH, LIPID, CMP, TSH3 wRFLX #### [facility] [address] [place] [id number] USATriglyceride w/Meflua88 mg/dLNormal0-149The [facility] Physician GroupComment on above:Result Comment: TRIG ATP III CLASSIFICATION TRIG less than 150 mg/dL Normal TRIG 150-199 mg/dL Borderline high TRIG 200-500 mg/dL High TRIG greater than 500 mg/dL Very high Standard traceable to the Center for Disease Conrtrol and Prevention (CDC) test method.Performed By: #### CBC, [id number], T4F, ETOH, LIPID, CMP, TSH3 wRFLX #### [place] [address] USAVLDL SVHWRTOMZWE52 mg/dLNormalThe [facility] Physician GroupComment on above:Performed By: #### CBC, [id number], T4F, ETOH, LIPID, CMP, TSH3 wRFLX #### [place] [address] USALymphocytes [#/volume] in Blood by Automated countOrdered By: Norah Sykes on 31-99-3459Csaiwwoxykd (Bld) [#/Vol]2.2 10*3/uLNormal 1.00-4.8[facility] HospitalComment on above:Performed By: #### CBC, KYAT37GW, T4F, ETOH, LIPID, CMP, TSH3 wRFLX #### [place] [id number] USALymphocytes/100 leukocytes in Blood by Automated count Ordered By: Norah Sykes on 00-06-7349Hbzvjmalgay/100 WBC (Bld)40.3 %Normal. [facility] HospitalComment on above:Performed By: #### CBC, QQFA80MB, T4F, ETOH, LIPID, CMP, TSH3 wRFLX #### [place] [id number] USAMCH [Entitic mass] by Automated countOrdered By: Norah Sykes on 05-53-9697JVF (RBC) [Entitic mass]29.1 qmXiimnv14.7-34.3FOhioHealth Grove City Methodist HospitalComment on above:Performed By: #### CBC, [id number], T4F, ETOH, LIPID, CMP, TSH3 wRFLX #### [facility] [address] [id number] USAMCHC Auto (RBC) [Mass/Vol]Ordered By: Norah Sykes on 13-16-2277KKFH (RBC) [Mass/Vol]33.0 g/dL32.0-35.0[facility] HospitalMCV [Entitic volume] by Automated countOrdered By: Norah Sykes on 04-69-8757XRF (RBC) [Entitic vol]88.2 jCEslnef82-259LabuzbvkcCleveland Clinic Avon HospitalComment on above:Performed By: #### CBC, [id number], T4F, ETOH, LIPID, CMP, TSH3 wRFLX #### [facility] [address] [place] [address] USAMonocyte distribution width [Entitic volume] in Blood by AutomatedOrdered By: Norah Sykes on 73-08-0959Luwpfapy distribution width Auto (Bld) [Entitic vol]16.20 %0.00-20.00[facility] Monocytes [#/volume] in Blood by Automated countOrdered By: Norah Sykes on 38-22-4522Srelouoht (Bld) [#/Vol]0.5 10*3/uLNormal0.0-0.8[facility]on HospitalComment on above:Performed By: #### CBC, [id number], T4F, ETOH, LIPID, CMP, TSH3 wRFLX #### [facility] [address] [id number] USAMonocytes/100 leukocytes in Blood by Automated count Ordered By: Norah Sykes on 00-87-3291Tzxfjovhy/100 WBC (Bld)8.4 %Normal. [facility]on HospitalComment on above:Performed By: #### CBC, [id number], T4F, ETOH, LIPID, CMP, TSH3 wRFLX #### [facility] [address] [id number] USAMucus [Presence] in Urine by AutomatedOrdered By: Norah Sykes on 91-85-4011Nmxjt Auto Ql (U)Rare [LPF][facility] HospitalNeutrophils [#/volume] in Blood by Automated countOrdered By: Norah Sykes on 81-82-9330Pskseiusoyx (Bld) [#/Vol]2.8 10*3/uLNormal1.8-7.7FOhioHealth Grove City Methodist HospitalComment on above:Performed By: #### CBC, [id number], T4F, ETOH, LIPID, CMP, TSH3 wRFLX #### [facility] [address] [place] [address] USANeutrophils/100 leukocytes in Blood by Automated count Ordered By: Norah Sykes on 83-30-4703Fcmwmnmdwbz/100 WBC (Bld)50.8 %Normal. [facility] HospitalComment on above:Performed By: #### CBC, [id number], T4F, ETOH, LIPID, CMP, TSH3 wRFLX #### [facility] [address] [place] [address] USANitrite Test strip Ql (U)Ordered By: Norah Sykes on 41-53-2038Ndfowcb Ql (U)NegativeNegProMedica Defiance Regional HospitalNo Panel InformationOrdered By: Norah Sykes on 81-73-9019Bendahiay GFR (CKD-EPI) > 60.0 mL/MinCleveland Clinic Avon HospitalPharmacy Creatinine Clearance (Yjuh327.36[facility] HospitalNucleated erythrocytes [Presence] in Blood by Automated countOrdered By: Norah Sykes on 96-06-5824Nimdpysjy RBC Auto Ql (Bld)0.2 /100{WBC}0-0.5FOhioHealth Grove City Methodist HospitalOpiates [Presence] in Urine by Screen methodOrdered By: Norah Sykes on 12-29-2024 Opiates Screen Ql (U)NegativeNegProMedica Defiance Regional Hospital Phencyclidine Screen Ql (U)Ordered By: Norah Sykes on 11-53-5887Bxxnwponszasv Ql (U)NegativeNegProMedica Defiance Regional HospitalPlatelet mean volume [Entitic volume] in Blood by Automated countOrdered By: Norah Sykes on 75-76-8811Lvwmokvh mean volume (Bld) [Entitic vol]6.9 fLNormal6.3-10.7FOhioHealth Grove City Methodist HospitalComment on above:Performed By: #### CBC, [id number], T4F, ETOH, LIPID, CMP, TSH3 wRFLX #### [facility] [address] [id number] USAPlatelets [#/volume] in Blood by Automated countOrdered By: Norah Sykes on 44-17-3422Snezmelrb (Bld) [#/Vol]253 10*3/uJRkysta846-684 [facility] HospitalComment on above:Performed By: #### CBC, [id number], T4F, ETOH, LIPID, CMP, TSH3 wRFLX #### [facility] [address] [id number] USAPotassium [Moles/volume] in Serum or PlasmaOrdered By: Norah Sykes on 10-62-4229Kxoqrvmtw [Moles/Vol]4.3 mmol/LNormal3.5-5.1 [facility] HospitalComment on above:Performed By: #### CBC, [id number], T4F, ETOH, LIPID, CMP, TSH3 wRFLX #### [facility] [address] [id number] USAProtein Test strip (U) [Mass/Vol]Ordered By: Norah Sykes on 50-37-7001Chngvct (U) [Mass/Vol]Trace mg/dLHighNegativeCleveland Clinic Avon HospitalProtein [Mass/volume] in Serum or PlasmaOrdered By: Norah Sykes on 46-12-0435Povlidx [Mass/Vol]6.8 g/dLNormal6.4-8.9[facility] HospitalComment on above:Performed By: #### CBC, [id number], T4F, ETOH, LIPID, CMP, TSH3 wRFLX #### [facility] [address] [id number] USASerum globulin measurement by calculation (mass/volume) Ordered By: Norah Sykes on 97-94-7837Leciyvyk (S) [Mass/Vol]2.8 g/dLNormal [facility] HospitalComment on above:Performed By: #### CBC, [id number], T4F, ETOH, LIPID, CMP, TSH3 wRFLX #### [facility] [address] [place] [address] USASerum or plasma albumin/globulin mass ratioOrdered By: Norah Sykes on 76-30-9354Raiqkyt/Globulin [Mass ratio]1.4 {ratio}Normal [facility] HospitalComment on above:Performed By: #### CBC, [id number], T4F, ETOH, LIPID, CMP, TSH3 wRFLX #### [facility] [address] [place] [address] USASerum or plasma anion gap determinationOrdered By: Norah Sykes on 27-45-1245Vjbpu gap [Moles/Vol]6.7 mmol/LNormal6.0-15.0[facility] HospitalComment on above:Performed By: #### CBC, [id number], T4F, ETOH, LIPID, CMP, TSH3 wRFLX #### [facility] [address] [id number] USASerum or plasma ethanol measurement (mass/volume)Ordered By: Norah Sykes on 01-51-1857Ubgmlzd [Mass/Vol][facility] HospitalComment on above:Test not performedSodium [Moles/volume] in Serum or PlasmaOrdered By: Norah Sykes on 38-22-4700Xfgvli [Moles/Vol]139 mmol/LNormal 136-145[facility] HospitalComment on above:Performed By: #### CBC, [id number], T4F, ETOH, LIPID, CMP, TSH3 wRFLX #### [facility] [address] [place] [address] USASpecific gravity Test strip (U) [Rel density]Ordered By: Norah Sykes on 04-34-2034Erbuhvjv gravity (U) [Rel density]1.0301.001-1.030 [facility] HospitalThyroid Stim Hormone w/Rflxon 41-50-9195Ggbxztu Stim Hormone w/Rflx5.46 u[iU]/mLHigh0.45-5.33[facility] Comment on above:Performed By: #### CBC, [id number], T4F, ETOH, LIPID, CMP, TSH3 wRFLX #### [facility] [address] [place] [address] USAUrea nitrogen [Mass/volume] in Serum or PlasmaOrdered By: Norah Sykes on 99-41-4699Fska nitrogen [Mass/Vol]15 mg/dLNormal7-25[facility] HospitalComment on above:Performed By: #### CBC, [id number], T4F, ETOH, LIPID, CMP, TSH3 wRFLX #### [facility] [address] [place] [address] USAUrobilinogen Test strip (U) [Mass/Vol]Ordered By: Norah Sykes on 59-61-9773Creuykqltwtu (U) [Mass/Vol]2 mg/dLHighNoPremier Health Miami Valley HospitalVitamin D 25 Hydroxy Totalon 44-95-5118Kmheaot D 25 Hydroxy Total13.6 ng/nLEmz43-996Mmx [facility] Physician GroupComment on above: Result Comment: VITAMIN D STATUS 25(OH)VITAMIN D RANGE (ng/mL) Deficient <20 Insufficient 20 to <30 Sufficient 30 to 100 Reference: Malou MF,Roly NC, Kassidy SHAH, et al. Evaluation,treatment, and prevention of vitamin D deficiency; an Endocrine Society clinical practice guideline. JCEM. 2010; 96(7):1911-30. PERFORMED BY: [address] [address] PATHOLOGIST RESISTANCE WELDER AMBER HENNING M.D.Performed By: #### [id number], TSH3 wRFLX, LIPID #### [facility] [address] [place] [address] USApH of Urine by Test stripOrdered By: Norah Sykes on 37-71-0107uW (U)6.0 [pH]Normal5.0-9.0[facility] HospitalComment on above:Order Comment: Name Collection Type:: Clean-Voided MidstreamPerformed By: #### [id number], TSH3 wRFLX, LIPID #### [facility] [address] [place] [address] USAECG 12 lead ECGon 60-43-9132SDW 12 lead ECGSOUTH[facility] Main [place] [address] [place] [address] Electrocardiograph Report Signed Patient: Barbra Claros MR#: [id number] : 1995 Acct:[id number] Age/Sex: 29 / F ADM Date: 12/03/24 Loc: Room: [address] [place] [address] Type: ADM IN Attending Dr: Kit Gutierrez [...] Signed By Paul Juarez MD 0 12/04/24 0951NoNovant Health / NHRMC Physician GroupComplete Blood Count Auto Diffon 11-96-2769Ggimxygya (Bld) [#/Vol]0.0 10*3/uLNormal0.0-0.2The [facility] Physician GroupComment on above:Result Comment: PERFORMED BY: [place] [address] PATHOLOGIST RESISTANCE WELDER AMBER HENNING M.D.Performed By: #### [id number], TSH3 wRFLX, LIPID #### [facility] [address] [place] [address] USABasophils/100 WBC (Bld)0.3 %Normal.The [facility] Physician GroupComment on above:Performed By: #### [id number], TSH3 wRFLX, LIPID #### [place] [address] USAEosinophils (Bld) [#/Vol]0.0 10*3/uLNormal0.0-0.45The [facility] Physician GroupComment on above:Performed By: #### [id number], TSH3 wRFLX, LIPID #### [place] [address] USAEosinophils/100 WBC (Bld)0.1 %Normal.The [facility] Physician GroupComment on above:Performed By: #### [id number], TSH3 wRFLX, LIPID #### [place] [address] USAErythrocyte distribution width (RBC) [Ratio]14.3 %Normal 11.9-15.3The [facility] Physician GroupComment on above:Performed By: #### [id number], TSH3 wRFLX, LIPID #### [place] [address] USAHematocrit (Bld) [Volume fraction]35.9 %Deujuk99.0-46.4The [facility] Physician GroupComment on above:Performed By: #### [id number], TSH3 wRFLX, LIPID #### [place] [address] USAHemoglobin (Bld) [Mass/Vol]12.1 g/cTRncszu04.8-15.4The [facility] Physician GroupComment on above:Performed By: #### [id number], TSH3 wRFLX, LIPID #### [place] [address] USALymphocytes (Bld) [#/Vol]2.0 10*3/uLNormal1.00-4.8The [facility] Physician GroupComment on above:Performed By: #### [id number], TSH3 wRFLX, LIPID #### [place] [address] USALymphocytes/100 WBC (Bld)33.7 %Normal.The [facility] Physician GroupComment on above:Performed By: #### [id number], TSH3 wRFLX, LIPID #### [place] [address] USAH (RBC) [Entitic mass]29.3 bsZloamg74.7-34.3The [facility] Physician GroupComment on above:Performed By: #### [id number], TSH3 wRFLX, LIPID #### [place] [address] USAV (RBC) [Entitic vol]86.6 mYVnljkn45-407Buz [facility] Physician GroupComment on above:Performed By: #### [id number], TSH3 wRFLX, LIPID #### [place] [address] USAMean Corpuscular HGB Conc33.9 g/nYWmopfq27.0-35.0The [facility] Physician GroupComment on above:Performed By: #### [id number], TSH3 wRFLX, LIPID #### [place] [address] USAMonocytes (Bld) [#/Vol]0.5 10*3/uLNormal0.0-0.8The [facility] Physician GroupComment on above:Performed By: #### [id number], TSH3 wRFLX, LIPID #### [place] [address] USAMonocytes/100 WBC (Bld)17.21 %Normal0.00-20.00The [facility] Physician GroupComment on above:Performed By: #### [id number], TSH3 wRFLX, LIPID #### [place] [address] USAMonocytes/100 WBC (Bld)7.7 %Normal.The [facility] Physician GroupComment on above:Performed By: #### [id number], TSH3 wRFLX, LIPID #### [place] [address] USANeutrophils (Bld) [#/Vol]3.5 10*3/uLNormal1.8-7.7The [facility] Physician GroupComment on above:Performed By: #### [id number], TSH3 wRFLX, LIPID #### [facility] [address] [place] [address] USANeutrophils/100 WBC (Bld)58.2 %Normal.The [facility] Physician GroupComment on above:Performed By: #### [id number], TSH3 wRFLX, LIPID #### [facility] [address] [place] [address] USANRBC%0.1 /100{WBC}Normal0-0.5[facility] Comment on above:Performed By: #### [id number], TSH3 wRFLX, LIPID #### [facility] [address] [place] [address] USAPlatelet mean volume (Bld) [Entitic vol]7.2 fLNormal 6.3-10.7The [facility] Physician GroupComment on above:Performed By: #### [id number], TSH3 wRFLX, LIPID #### [facility] [address] [place] [address] USAPlatelets (Bld) [#/Vol]296 10*3/kTTsjrmc148-060Alp [facility] Physician GroupComment on above:Performed By: #### [id number], TSH3 wRFLX, LIPID #### [facility] [address] [place] [address] USARBC (Bld) [#/Vol]4.14 10*6/uLNormal3.60-5.00The [facility] Physician GroupComment on above:Performed By: #### [id number], TSH3 wRFLX, LIPID #### [facility] [address] [place] [address] USAWBC (Bld) [#/Vol]5.9 10*3/uLNormal3.8-11.6The [facility] Physician GroupComment on above:Performed By: #### [id number], TSH3 wRFLX, LIPID #### [place] [address] USAWhite Blood Count5.9 [CFU]/mLNormal3.8-11.6The [facility] Physician GroupComment on above:Performed By: #### [id number], TSH3 wRFLX, LIPID #### [place] [address] USAComprehensive Metabolic Panelon 58-08-0309Juojnfs [Mass/Vol]4.3 g/dLNormal3.5-5.7The [facility] Physician GroupComment on above: Performed By: #### [id number], TSH3 wRFLX, LIPID #### [place] [address] USAAlbumin/Globulin [Mass ratio]1.4 {ratio}NormalThe [facility] Physician GroupComment on above:Performed By: #### [id number], TSH3 wRFLX, LIPID #### [place] [address] USAALP [Catalytic activity/Vol]55 U/NHdljio64-182Aqv [facility] Physician GroupComment on above:Performed By: #### [id number], TSH3 wRFLX, LIPID #### [place] [address] USAALT [Catalytic activity/Vol]19 U/LNormal7-52The [facility] Physician GroupComment on above:Performed By: #### [id number], TSH3 wRFLX, LIPID #### [place] [address] USAAnion gap [Moles/Vol]6.8 mmol/LNormal6.0-15.0The [facility] Physician GroupComment on above:Performed By: #### [id number], TSH3 wRFLX, LIPID #### [place] [address] USAAST [Catalytic activity/Vol]19 U/AJsjoli41-19Ybr [facility] Physician GroupComment on above:Performed By: #### [id number], TSH3 wRFLX, LIPID #### [address] [place] [address] USABilirubin [Mass/Vol]0.3 mg/dLNormal0.3-1.0The [facility] Physician GroupComment on above:Performed By: #### [id number], TSH3 wRFLX, LIPID #### [place] [address] USACalcium [Mass/Vol]9.2 mg/dLNormal8.6-10.3The [facility] Physician GroupComment on above:Performed By: #### [id number], TSH3 wRFLX, LIPID #### [place] [address] USAChloride [Moles/Vol]104 mmol/ALyrrqn45-124Dsd [facility] Physician GroupComment on above:Performed By: #### [id number], TSH3 wRFLX, LIPID #### [place] [address] USACO2 [Moles/Vol]30.3 mmol/FZgyuym24.0-31.0The [facility] Physician GroupComment on above:Performed By: #### EPSD24MF, TSH3 wRFLX, LIPID #### [place] [address] USACreatinine [Mass/Vol]0.82 mg/dLNormal0.60-1.20The [facility] Physician GroupComment on above:Performed By: #### [id number], TSH3 wRFLX, LIPID #### [place] [address] USACreatinine Clr Calc Ydudvznm19.09NormalThSaint Alphonsus Regional Medical Center Physician GroupComment on above:Result Comment: PERFORMED BY: [place] [address] PATHOLOGIST RESISTANCE WELDER AMBER HENNING M.D.Performed By: #### [id number], TSH3 wRFLX, LIPID #### [place] [address] USAGFR/1.73 sq M.predicted MDRD (S/P/Bld) [Vol rate/Area] mL/min/{1.73_m2}NormalThe [facility] Physician GroupComment on above:Performed By: #### [id number], TSH3 wRFLX, LIPID #### [facility] [address] [place] [address] USAGlobulin (S) [Mass/Vol]3.0 g/dLNormalThe [facility] Physician GroupComment on above:Performed By: #### [id number], TSH3 wRFLX, LIPID #### [place] [address] USAGlucose [Mass/Vol]82 mg/dUOnkyuz18-153Yha [facility] Physician GroupComment on above:Result Comment: Random Glucose Reference Range is dependent on time and content of last meal. Glucose of more than 200 mg/dL in a nonstressed, ambulatory subject supports the diagnosis of Diabetes Mellitus. ADA recommended reference rangePerformed By: #### [id number], TSH3 wRFLX, LIPID #### [place] [address] USAPotassium [Moles/Vol]4.1 mmol/LNormal3.5-5.1The [facility] Physician GroupComment on above:Performed By: #### [id number], TSH3 wRFLX, LIPID #### [place] [address] USAProtein [Mass/Vol]7.3 g/dLNormal6.4-8.9The [facility] Physician GroupComment on above:Performed By: #### [id number], TSH3 wRFLX, LIPID #### [place] [address] USASodium [Moles/Vol]137 mmol/OMeeziz926-529Brt [facility] Physician GroupComment on above:Performed By: #### [id number], TSH3 wRFLX, LIPID #### [place] [address] USAUrea nitrogen [Mass/Vol]11 mg/dLNormal7-25The [facility] Physician GroupComment on above:Performed By: #### [id number], TSH3 wRFLX, LIPID #### [place] [address] USADrug Screen,Urineon 41-37-3349Xjavyxwsluj Screen,Urine NegativeNormalNegativeThe [facility] Physician GroupComment on above:Performed By: #### CBC, [id number], T4F, ETOH, LIPID, CMP, TSH3 wRFLX #### [place] [address] USABarbiturate Screen,UrineNegativeNormalNegativeThe [facility] Physician GroupComment on above:Performed By: #### CBC, [id number], T4F, ETOH, LIPID, CMP, TSH3 wRFLX #### [place] [address] USABenzodiazepines Screen,UrineNegativeNormalNegativeThe [facility] Physician GroupComment on above:Performed By: #### CBC, [id number], T4F, ETOH, LIPID, CMP, TSH3 wRFLX #### [place] [address] USACannabinoid Screen,UrinePositiveNormalNegativeThe [facility] Physician GroupComment on above:Result Comment: These are unconfirmed results and should not be used for legal purposes. Drug Cut-Off Concentration: AMPH 1000 ng/mL FIONA 200 ng/mL KIMMY 200 ng/mL COCM 300 ng/mL OP 300 ng/mL PCP 25 ng/mL THC 20 ng/mL PERFORMED BY: [place] [address] PATHOLOGIST RESISTANCE WELDER AMBER HENNING M.D.Performed By: #### CBC, [id number], T4F, ETOH, LIPID, CMP, TSH3 wRFLX #### [place] [address] USACocaine Screen,UrineNegativeNormalNegativeMorton Plant North Bay Hospital Physician GroupComment on above:Performed By: #### CBC, [id number], T4F, ETOH, LIPID, CMP, TSH3 wRFLX #### [place] [address] USAOpiate Screen,UrineNegativeNormalNegativeMorton Plant North [facility] Hospital Physician GroupComment on above:Performed By: #### CBC, [id number], T4F, ETOH, LIPID, CMP, TSH3 wRFLX #### [place] [address] USAPhencyclidine Screen,UrineNegativeNormalNegativeMorton Plant North [facility] Hospital Physician [facility] Medical CenterComment on above:Performed By: #### CBC, [id number], T4F, ETOH, LIPID, CMP, TSH3 wRFLX #### [place] [address] USAEthyl Alcohol Profileon 75-60-9150Okdpaei [Mass/Vol]mg/dL NormalThe [facility] Physician [facility] Medical CenterComment on above:Performed By: #### [id number], TSH3 wRFLX, LIPID #### [place] [address] USAPercent EthanolNot performedNoNovant Health / NHRMC Physician [facility] Medical CenterComment on above:Result Comment: PERFORMED BY: [place] [address] PATHOLOGIST RESISTANCE WELDER AMBER HENNING M.D.Performed By: #### [id number], TSH3 wRFLX, LIPID #### [place] [address] USAHCG,Urineon 98-57-8184Fbuj HCG ( test) Ql (U) NegativeNoMercy Health St. Elizabeth Youngstown HospitalComment on above:Order Comment: Name Collection Type:: Clean-Voided MidstreamResult Comment: PERFORMED BY: [place] [address] PATHOLOGIST RESISTANCE WELDER AMBER HENNING M.D.Performed By: #### CBC, [id number], T4F, ETOH, LIPID, CMP, TSH3 wRFLX #### [place] [address] USALipid Panelon 21-54-9898Kzipwpmsits [Mass/Vol]178 mg/dL Xwczyw682-741Sbn [facility] Physician GroupComment on above:Order Comment: FASTING Y Comment Add to labs drawn in ERResult Comment: Chol less than 200 mg/dl low risk Chol 201-239 mg/dl borderline risk Chol 240 mg/dl and greater high riskPerformed By: #### [id number], TSH3 wRFLX, LIPID #### [facility] [address] [place] [address] USACholesterol in HDL [Mass/Vol]51 mg/aUMyeglb36-50Dcv [facility] Physician GroupComment on above:Order Comment: FASTING Y Comment Add to labs drawn in ERResult Comment: HDL CHOL ATP-III CLASSIFICATION Cardiovascular Risk HDL > or equal to 60 mg/dL LOW HDL < 40 mg/dL HIGHPerformed By: #### LUDO40US, TSH3 wRFLX, LIPID #### [facility] [address] [place] [address] USACholesterol.total/Cholesterol in HDL [Mass ratio]3.5 {ratio}Normal<5.0The [facility] Physician GroupComment on above:Order Comment: FASTING Y Comment Add to labs drawn in ERPerformed By: #### [id number], TSH3 wRFLX, LIPID #### [facility] [address] [place] [address] USALDL Cholesterol,Nuxaredgvx402 mg/dLHigh0-100The [facility] Physician GroupComment on above:Order Comment: FASTING Y Comment Add to labs drawn in ERResult Comment: LDL ATP III CLASSIFICATION LDL less than 100 mg/dL Optimal LDL 100-129 mg/dL Near or above optimal LDL 130-159 mg/dL Borderline high LDL 160-189 mg/dL High LDL greater than 189 mg/dL Very highPerformed By: #### [id number], TSH3 wRFLX, LIPID #### [facility] [address] [place] [address] USATriglyceride w/Kwhumt07 mg/dLNormal0-149The [facility] Physician GroupComment on above:Order Comment: FASTING Y Comment Add to labs drawn in ERResult Comment: TRIG ATP III CLASSIFICATION TRIG less than 150 mg/dL Normal TRIG 150-199 mg/dL Borderline high TRIG 200-500 mg/dL High TRIG greater than 500 mg/dL Very high Standard traceable to the Center for Disease Conrtrol and Prevention (CDC) test method.Performed By: #### [id number], TSH3 wRFLX, LIPID #### [facility] [address] [place] [address] USAVLDL QQMQESPVQBS84 mg/dLNoNovant Health / NHRMC Physician GroupComment on above:Order Comment: FASTING Y Comment Add to labs drawn in ER Performed By: #### [id number], TSH3 wRFLX, LIPID #### [facility] [address] [place] [address] USAThyroid Stim Hormone w/Rflxon 68-90-4955Qjerpqf Stim Hormone w/Rflx3.77 u[iU]/mLNormal0.45-5.33[facility] Physician GroupComment on above:Order Comment: FASTING Y Comment Add to labs drawn in ERPerformed By: #### [id number], TSH3 wRFLX, LIPID #### [place] [id number] USAUrinalysison 73-64-7306Kbqxvdvuqw (U)ClearNormalClearThe [facility] Physician GroupComment on above:Order Comment: Name Collection Type:: Clean-Voided MidstreamPerformed By: #### CBC, [id number], T4F, ETOH, LIPID, CMP, TSH3 wRFLX #### [facility] [address] [place], [place] [address] USABilirubin,UrineNegativeNormalNegativeMorton Plant [facility] Hospital Physician GroupComment on above:Order Comment: Name Collection Type:: Clean- Voided MidstreamPerformed By: #### CBC, [id number], T4F, ETOH, LIPID, CMP, TSH3 wRFLX #### [facility] [address] [place], [place] [address] USAColor (U)ColorlessNormalYellowThe [facility] Physician GroupComment on above:Order Comment: Name Collection Type:: Clean-Voided MidstreamPerformed By: #### CBC, [id number], T4F, ETOH, LIPID, CMP, TSH3 wRFLX #### [address] [address] USAGlucose Ql (U)NormalNormalNormHCA Florida Starke Emergency Physician GroupComment on above:Order Comment: Name Collection Type:: Clean-Voided MidstreamPerformed By: #### CBC, [id number], T4F, ETOH, LIPID, CMP, TSH3 wRFLX #### [place] [address] USAKetones Ql (U)NegativeNormalNegativeThe [facility] Physician GroupComment on above:Order Comment: Name Collection Type:: Clean- Voided MidstreamPerformed By: #### CBC, [id number], T4F, ETOH, LIPID, CMP, TSH3 wRFLX #### [place] [address] USALeukocyte esterase Test strip Ql (U)NegativeNormalNegative [facility] Physician GroupComment on above:Order Comment: Name Collection Type:: Clean-Voided MidstreamPerformed By: #### CBC, [id number], T4F, ETOH, LIPID, CMP, TSH3 wRFLX #### [place] [address] USANitrite,UrineNegativeNormalNegativeThe [facility] Physician GroupComment on above:Order Comment: Name Collection Type:: Clean-Voided MidstreamPerformed By: #### CBC, [id number], T4F, ETOH, LIPID, CMP, TSH3 wRFLX #### [place] [address] USAOccult Blood,UrineNegativeNormalNegativeThe [facility] Physician GroupComment on above:Order Comment: Name Collection Type:: Clean- Voided MidstreamPerformed By: #### CBC, [id number], T4F, ETOH, LIPID, CMP, TSH3 wRFLX #### [place] [address] USApH (U)7.5 [pH]Normal5.0-9.0[facility] Comment on above:Order Comment: Name Collection Type:: Clean-Voided Midstream Performed By: #### CBC, [id number], T4F, ETOH, LIPID, CMP, TSH3 wRFLX #### [place] [address] USAProtein,UrineNegativeNormalNegativeThe [facility] Physician GroupComment on above:Order Comment: Name Collection Type:: Clean-Voided MidstreamPerformed By: #### CBC, [id number], T4F, ETOH, LIPID, CMP, TSH3 wRFLX #### [place] [address] USASpecificy [place],Urine1.285Swgsxr5.001-1.030The [facility] Physician GroupComment on above:Order Comment: Name Collection Type:: Clean- Voided MidstreamPerformed By: #### CBC, [id number], T4F, ETOH, LIPID, CMP, TSH3 wRFLX #### [facility] [address] [place] [address] USAUrobilinogen,UrineNormalNormalNormalThe [facility] Physician GroupComment on above:Order Comment: Name Collection Type:: Clean- Voided MidstreamPerformed By: #### CBC, [id number], T4F, ETOH, LIPID, CMP, TSH3 wRFLX #### [place] [id number] USAVitamin D 25 Hydroxy Totalon 71-98-9742Pyuaosd D 25 Hydroxy Total10.9 ng/wREkd31-901Khb [facility] Physician GroupComment on above: Order Comment: FASTING Y Comment Add to labs drawn in ERResult Comment: VITAMIN D STATUS 25(OH)VITAMIN D RANGE (ng/mL) Deficient <20 Insufficient 20 to <30 Sufficient 30 to 100 Reference: Malou MF,Roly NC, Kassidy SHAH, et al. Evaluation,treatment, and prevention of vitamin D deficiency; an Endocrine Society clinical practice guideline. JCEM. 2010; 96(7):1911-30. PERFORMED BY: [place] [address] PATHOLOGIST RESISTANCE WELDER AMBER HENNING M.D.Performed By: #### [id number], TSH3 wRFLX, LIPID #### [place] [id number] USAUrine Cultureon 50-10-9004Styjzcbq identified Cx Nom (U) 75,000 colonies/ml mixed bacterial skin contaminants 2 Days PERFORMED BY: [place] [address] PATHOLOGIST RESISTANCE WELDER AMBER HENNING M.D.[facility] Physician GroupComment on above: Performed By: #### CUU #### [place] [address] USAUrine cultureOrdered By: Vik Gunter on 11-23-2024 Bacteria identified Cx Nom (U)2 DaysCleveland Clinic Avon HospitalECG 12 lead ECGon 09-95-5400LTD 12 lead ECGSOUTHWEST [facility] [place] [address] Electrocardiograph Report Signed Patient: Barbra Claros MR#: [id number] : 1995 Acct:[id number] Age/Sex: 29 / F ADM Date: 11/14/24 Loc: 1S Room: [address] [place] [address] Type: ADM IN Attending Dr: Dashawn Moreno [...] rhythm Normal ECG Confirmed by Rhoda Herring ([id number]) on 11/15/2024 4:36:41 PM Referred By: Electronically Signed By: Rhoda Herring Transcribed By: MUS Signed By Rhoda Herring MD 5 [id number] Physician GroupX-ray reportOrdered By: Julio Sunshine on 14-76-9187Qbyox [facility] [place] [address] XRay Report Signed Patient: Barbra Claros MR#: [id number] : 1995 Acct:[id number] Age/Sex: 29 / F ADM Date: 5 Loc: 1S Room: [address] [place] [address] Type: ADM IN Attending Dr: Dashawn Moreno [...] Sunshine DO 11/15/2453 Signed By: 11/15/[address] [place], [place] [address]XR hand RT 2Von 29-55-9173SU hand RT 2V [facility] [place] [address] XRay Report Signed Patient: Barbra Claros MR#: [id number] : 1995 Acct:[id number] Age/Sex: 29 / F ADM Date: 11/14/24 Loc: Room: [address] [place] [address] Type: ADM IN Attending Dr: Dashawn Moreno [...] Sunshine DO 11/15/24 0953 Signed By: 11/15/[address] [place] [address] Physician GroupAlanine aminotransferase [Enzymatic activity/volume] in Serum or PlasmaOrdered By: Goyo Epps on 87-81-1528LFU [Catalytic activity/Vol]Alanine aminotransferase [Enzymatic activity/volume] in Serum or PlasmaCleveland Clinic Avon HospitalALT [Catalytic activity/Vol]36 U/LNormal743 Brown StreetComment on above:Performed By: #### [id number], TSH3 wRFLX, LIPID #### [facility] [address] [place] [address] USAAlbumin [Mass/volume] in Serum or Plasma by Bromocresol green (BCG) dye binding methoOrdered By: Goyo Epps on 17-42-4156Wxfczcz BCG dye [Mass/Vol]Albumin [Mass/volume] in Serum or Plasma by Bromocresol green (BCG) dye binding metho3.5-5.7FOhioHealth Grove City Methodist HospitalAlbumin BCG dye [Mass/Vol]4.3 g/dL3.5-5.7FOhioHealth Grove City Methodist HospitalAlkaline phosphatase [Enzymatic activity/volume] in Serum or PlasmaOrdered By: Goyo Epps on 36-26-8918XPK [Catalytic activity/Vol]Alkaline phosphatase [Enzymatic activity/volume] in Serum or Tefrtb77-370Mfuegcdrv81 [address] StreetALP [Catalytic activity/Vol]54 U/ZCsteme69-097Gibaweqwl[address] Comment on above:Performed By: #### [id number], TSH3 wRFLX, LIPID #### [facility] [address] [place] [id number] USAAmphetamine Screen Ql (U)Ordered By: Goyo Epps on 63-21-2935Adzxjlhokjrx Ql (U)Amphetamines screenNegativeCleveland Clinic Avon HospitalAmphetamines Ql (U)NegativeNegativeCleveland Clinic Avon HospitalAppearance of UrineOrdered By: Goyo Epps on 46-19-7269Hvlvckutff (U) Urine appearanceCleWhite HospitalAppearance (U)ClearNormal ClearCleveland Clinic Avon HospitalComment on above:Order Comment: Name Collection Type:: Clean-Voided MidstreamPerformed By: #### CBC, [id number], T4F, ETOH, LIPID, CMP, TSH3 wRFLX #### [facility] [address] [place] [address] USAAspartate aminotransferase [Enzymatic activity/volume] in Serum or PlasmaOrdered By: Goyo Epps on 36-98-4322SNM [Catalytic activity/Vol]Aspartate aminotransferase [Enzymatic activity/volume] in Serum or Dfnfhq94-69Stuotkknb22 Anderson StreetAST [Catalytic activity/Vol]36 U/L Swnbjt57-57YdjdwtapwCleveland Clinic Avon HospitalComment on above:Performed By: #### [id number], TSH3 wRFLX, LIPID #### [facility] [address] [place] [address] USABacteria [Presence] in Urine by AutomatedOrdered By: Goyo Epps on 13-93-0349Jqvqeixi Auto Ql (U)Bacteria [Presence] in Urine by AutomatedNone SeenCleveland Clinic Avon HospitalBacteria Auto Ql (U)None seen [HPF]None [facility] HospitalBarbiturates [Presence] in Urine by Screen methodOrdered By: Goyo Epps on 33-35-9533Nkcyqmyrehiu Screen Ql (U)Barbiturates [Presence] in Urine by Screen methodNegativeCleveland Clinic Avon HospitalBarbiturates Screen Ql (U)NegativeNegativeCleveland Clinic Avon HospitalBasophils Auto (Bld) [#/Vol]Ordered By: Goyo Epps on 11-14-2024 Basophils (Bld) [#/Vol]Automated basophil count0.0-0.2FOhioHealth Grove City Methodist HospitalBasophils [#/volume] in Blood by Automated countOrdered By: Goyo Epps on 59-83-6944Esjodwhai (Bld) [#/Vol]0.0 10*3/uLNormal0.0-0.2FOhioHealth Grove City Methodist HospitalComment on above:Result Comment: PERFORMED BY: [address] [address] PATHOLOGIST RESISTANCE WELDER ABMER HENNING M.D.Performed By: #### [id number], TSH3 wRFLX, LIPID #### [facility] [address] [place] [address] USABasophils/100 WBC Auto (Bld)Ordered By: Goyo Epps on 03-61-7020Bboahtimg/100 WBC (Bld)Automated basophil %.Cleveland Clinic Avon HospitalBasophils/100 leukocytes in Blood by Automated countOrdered By: Goyo Epps on 06-36-8221Nujhcfxpd/100 WBC (Bld)0.4 %Normal.[facility] Clinic Avon HospitalComment on above:Performed By: #### [id number], TSH3 wRFLX, LIPID #### [facility] [address] [place] [address] USABenzodiazepines Screen Ql (U)Ordered By: Goyo Epps on 28-71-0660Owbhwsmydbormhz Ql (U)Benzodiazepines [Presence] in Urine by Screen methodNegativeCleveland Clinic Avon HospitalBenzodiazepines Ql (U)Negative NegativeCleveland Clinic Avon HospitalBenzoylecgonine [Presence] in Urine by Screen methodOrdered By: Goyo Epps on 36-95-6121Sjrjzxwoxashelt Screen Ql (U) Benzoylecgonine [Presence] in Urine by Screen methodNegativeCleveland Clinic Avon HospitalBenzoylecgonine Screen Ql (U)NegativeNegativeCleveland Clinic Avon HospitalBilirubin Test strip Ql (U)Ordered By: Goyo Epps on 11-14-2024 Bilirubin Ql (U)Bilirubin.total [Presence] in Urine by Test stripNegative [facility] Clinic Avon HospitalBilirubin Ql (U)NegativeNegativeCleveland Clinic Avon HospitalBilirubin.total [Mass/volume] in Serum or PlasmaOrdered By: Goyo Epps on 76-71-0793Afqitegel [Mass/Vol]Bilirubin.total [Mass/volume] in Serum or PlasmaLow0.3-1.0C[facility] Clinic Avon HospitalBilirubin [Mass/Vol]0.2 mg/dLLow0.3-1.0C[facility] HospitalComment on above: Performed By: #### [id number], TSH3 wRFLX, LIPID #### [facility] [address] [place] [address] USACalcium [Mass/volume] in Serum or PlasmaOrdered By: Goyo Epps on 50-10-8404Ihbgzjw [Mass/Vol]Calcium [Mass/volume] in Serum or Plasma8.6-10.3FOhioHealth Grove City Methodist HospitalCalcium [Mass/Vol]8.9 mg/dLNormal 8.6-10.3FOhioHealth Grove City Methodist HospitalComment on above:Performed By: #### [id number], TSH3 wRFLX, LIPID #### [facility] [address] [place] [address] USACannabinoids [Presence] in Urine by Screen methodOrdered By: Goyo Epps on 33-01-5681Dycyrqektuae Screen Ql (U)Cannabinoids [Presence] in Urine by Screen methodHighNegProMedica Defiance Regional HospitalComment on above:These are unconfirmed results and should not be used for legal purposes. Drug Cut-Off Concentration: AMPH 1000 ng/mL FIONA 200 ng/mL KIMMY 200 ng/mL COCM 300 ng/mL OP 300 ng/mL PCP 25 ng/mL THC 20 ng/mLCannabinoids Screen Ql (U) PositiveHighNegProMedica Defiance Regional HospitalComment on above:These are unconfirmed results and should not be used for legal purposes. Drug Cut-Off Concentration: AMPH 1000 ng/mL FIONA 200 ng/mL KIMMY 200 ng/mL COCM 300 ng/mL OP 300 ng/mL PCP 25 ng/mL THC 20 ng/mLCarbon dioxide, total [Moles/volume] in Serum or PlasmaOrdered By: Goyo Epps on 97-26-8291JR9 [Moles/Vol]Carbon dioxide, total [Moles/volume] in Serum or Nxbvos28.0-31.0Cleveland Clinic Avon HospitalCO2 [Moles/Vol]27.8 mmol/TDyvzhp42.0-31.0[facility] Comment on above:Performed By: #### [id number], TSH3 wRFLX, LIPID #### [facility] [address] [place] [address] USAChloride [Moles/volume] in Serum or PlasmaOrdered By: Goyo Epps on 76-44-9048Glemetbp [Moles/Vol]Chloride [Moles/volume] in Serum or Qkbaqf87-973KualkzwesCleveland Clinic Avon HospitalChloride [Moles/Vol]105 mmol/L Zgwrwk64-753DwovszdvvCleveland Clinic Avon HospitalComment on above:Performed By: #### [id number], TSH3 wRFLX, LIPID #### [facility] [address] [place] [address] USACholesterol [Mass/volume] in Serum or PlasmaOrdered By: Goyo Epps on 11-79-7411Ffuqcqhlfnb [Mass/Vol]Cholesterol [Mass/volume] in Serum or Omfadc672-426NogswsymuCleveland Clinic Avon HospitalComment on above:Chol less than 200 mg/dl low riskChol 201-239 mg/dl borderline riskChol 240 mg/dl and greater high riskCholesterol [Mass/Vol]167 mg/uIXmddgo390-184UyoyydmlzCleveland Clinic Avon HospitalComment on above:Chol less than 200 mg/dl low riskChol 201-239 mg/dl borderline riskChol 240 mg/dl and greater high riskResult Comment: Chol less than 200 mg/dl low risk Chol 201-239 mg/dl borderline risk Chol 240 mg/dl and greater high riskPerformed By: #### [id number], TSH3 wRFLX, LIPID #### [facility] [address] [place] [address] USACholesterol in HDL [Mass/volume] in Serum or PlasmaOrdered By: Goyo Epps on 52-79-8601Apraclfdlvn in HDL [Mass/Vol]Serum or plasma high density lipoprotein (HDL) cholesterol izadtgpvjrq88-68Mnuanjzwq73 Delacruz StreetComment on above:HDL CHOL ATP-III CLASSIFICATION Cardiovascular RiskHDL > or equal to 60 mg/dL LOWHDL < 40 mg/dL HIGHCholesterol in HDL [Mass/Vol]58 mg/iPAtwnsk50-17Bqlpkayvt73 Delacruz StreetComment on above: HDL CHOL ATP-III CLASSIFICATION Cardiovascular RiskHDL > or equal to 60 mg/dL LOWHDL < 40 mg/dL HIGHResult Comment: HDL CHOL ATP-III CLASSIFICATION Cardiovascular Risk HDL > or equal to 60 mg/dL LOW HDL < 40 mg/dL HIGHPerformed By: #### [id number], TSH3 wRFLX, LIPID #### [facility] [address] [place] [address] USACholesterol in LDL Calc [Mass/Vol]Ordered By: Goyo Epps on 79-56-3483Rqmlfijjmlo in LDL [Mass/Vol]Cholesterol in LDL [Mass/volume] in Serum or Plasma by calculation0Cleveland Clinic Avon HospitalComment on above:LDL ATP III CLASSIFICATIONLDL less than 100 mg/dL OptimalLDL 100-129 mg/dL Near or above ccbzycbEUD957-599 mg/dL Borderline highLDL 160-189 mg/dL HighLDL greater than 189 mg/dL Very highCholesterol in LDL [Mass/Vol]98 mg/dL0 [facility] Avon HospitalComment on above:LDL ATP III CLASSIFICATIONLDL less than 100 mg/dL OptimalLDL 100-129 mg/dL Near or above hzjoprvMAP123-512 mg/dL Borderline highLDL 160-189 mg/dL HighLDL greater than 189 mg/dL Very high Cholesterol in VLDL Calc [Mass/Vol]Ordered By: Goyo Epps on 11-14-2024 Cholesterol in VLDL [Mass/Vol]Cholesterol in VLDL [Mass/volume] in Serum or Plasma by calculationCleveland Clinic Avon HospitalCholesterol in VLDL [Mass/Vol]11 mg/dLCleveland Clinic Avon HospitalColor Auto (U)Ordered By: Goyo Epps on 67-81-4470Wwamw (U)Color of Urine by AutoYellowCleveland Clinic Avon HospitalColor of Urine by AutoOrdered By: Goyo Epps on 38-62-7614Kpehq (U)YellowNormalYellowCleveland Clinic Avon HospitalComment on above:Order Comment: Name Collection Type:: Clean-Voided MidstreamPerformed By: #### CBC, [id number], T4F, ETOH, LIPID, CMP, TSH3 wRFLX #### [facility] [address] [place] [id number] USAComplete Blood Count Auto Diffon 12-45-6387Mkxv Corpuscular HGB Conc33.9 g/fHTrjvoi53.0-35.0The [facility] Physician GroupComment on above:Performed By: #### [id number], TSH3 wRFLX, LIPID #### [facility] [address] [place] [address] USAMonocytes/100 WBC (Bld)18.51 %Normal0.00-20.00The [facility] Physician GroupComment on above:Performed By: #### [id number], TSH3 wRFLX, LIPID #### [place] [address] USANRBC%0.1 /100{WBC}Normal0-0.5The [facility] Comment on above:Performed By: #### [id number], TSH3 wRFLX, LIPID #### [place] [address] USAComprehensive Metabolic Panelon 61-44-8803Xleachs [Mass/Vol]4.3 g/dLNormal3.5-5.7The [facility] Physician [facility] Medical CenterComment on above: Performed By: #### [id number], TSH3 wRFLX, LIPID #### [place] [address] USACreatinine Clr Calc Tocuczlt126.40NormKettering Health Washington Townshipe [facility] Physician [facility] Medical CenterComment on above:Result Comment: PERFORMED BY: [place] [address] PATHOLOGIST RESISTANCE WELDER AMBER HENNING M.D.Performed By: #### [id number], TSH3 wRFLX, LIPID #### [place] [address] USAGFR/1.73 sq M.predicted MDRD (S/P/Bld) [Vol rate/Area] mL/min/{1.73_m2}NormalThe [facility] Physician [facility] Medical CenterComment on above:Performed By: #### [id number], TSH3 wRFLX, LIPID #### [place] [address] USACreatinine [Mass/volume] in Serum or PlasmaOrdered By: Goyo Epps on 48-12-2174Ubbqmfiboc [Mass/Vol]Creatinine [Mass/volume] in Serum or PlasmaLow0.60-1.20C[facility]on HospitalCreatinine [Mass/Vol]0.54 mg/dLLow0.60-1.20[facility] HospitalComment on above:Performed By: #### [id number], TSH3 wRFLX, LIPID #### [address] [address] USADipstick and Microscopicon 11-27-8660Oritxnqx,UrineNone SeenNormalNone SeenMorton Plant North Bay Hospital Physician GroupComment on above:Order Comment: Name Collection Type:: Clean-Voided MidstreamPerformed By: #### CBC, [id number], T4F, ETOH, LIPID, CMP, TSH3 wRFLX #### [place] [address] USABilirubin,UrineNegativeNormalNegativeMorton Plant North Bay Hospital Physician GroupComment on above:Order Comment: Name Collection Type:: Clean- Voided MidstreamPerformed By: #### CBC, [id number], T4F, ETOH, LIPID, CMP, TSH3 wRFLX #### [place] [address] USAGlucose Ql (U)NormalNormalNormHCA Florida Starke Emergency Physician GroupComment on above:Order Comment: Name Collection Type:: Clean-Voided MidstreamPerformed By: #### CBC, [id number], T4F, ETOH, LIPID, CMP, TSH3 wRFLX #### [place] [address] USAHyaline Casts,UrineNoneNormal0-8The [facility] Physician GroupComment on above:Order Comment: Name Collection Type:: Clean-Voided MidstreamPerformed By: #### CBC, [id number], T4F, ETOH, LIPID, CMP, TSH3 wRFLX #### [place] [address] USAMucus,Urine1+Critically abnormalThe [facility] Physician GroupComment on above:Order Comment: Name Collection Type:: Clean-Voided MidstreamPerformed By: #### CBC, [id number], T4F, ETOH, LIPID, CMP, TSH3 wRFLX #### [place] [address] USANitrite,UrineNegativeNormalNegativeMorton Plant North Bay Hospital Physician GroupComment on above:Order Comment: Name Collection Type:: Clean-Voided MidstreamPerformed By: #### CBC, [id number], T4F, ETOH, LIPID, CMP, TSH3 wRFLX #### [place] [address] USAOccult Blood,UrineNegativeNormalNegativeMorton Plant North Bay Hospital Physician GroupComment on above:Order Comment: Name Collection Type:: Clean- Voided MidstreamPerformed By: #### CBC, [id number], T4F, ETOH, LIPID, CMP, TSH3 wRFLX #### [place] [address] USARBC,Vchwg7-8Lcirvb8-1Qbx [facility] Physician GroupComment on above:Order Comment: Name Collection Type:: Clean-Voided MidstreamPerformed By: #### CBC, [id number], T4F, ETOH, LIPID, CMP, TSH3 wRFLX #### [place] [address] USASpecificy [place],Urine1.579Ncrk2.001-1.030The [facility] Physician GroupComment on above:Order Comment: Name Collection Type:: Clean- Voided MidstreamPerformed By: #### CBC, [id number], T4F, ETOH, LIPID, CMP, TSH3 wRFLX #### [place] [address] USASquamous Epithelial Cell,Flxgv6-6Fpwc6-1Msy [facility] Physician GroupComment on above:Order Comment: Name Collection Type:: Clean- Voided MidstreamPerformed By: #### CBC, [id number], T4F, ETOH, LIPID, CMP, TSH3 wRFLX #### [place] [address] USAUrobilinogen,Urine2 mg/dLHighNormalThe [facility] Physician GroupComment on above:Order Comment: Name Collection Type:: Clean-Voided MidstreamPerformed By: #### CBC, [id number], T4F, ETOH, LIPID, CMP, TSH3 wRFLX #### [place] [address] USAWBC,Dfvtu0-7Khyhot7-3Jda [facility] Physician GroupComment on above:Order Comment: Name Collection Type:: Clean-Voided MidstreamPerformed By: #### CBC, [id number], T4F, ETOH, LIPID, CMP, TSH3 wRFLX #### [place] [address] USADrug Screen,Urineon 93-02-4279Gayprtadymi Screen,Urine NegativeNormalNegativeThe [facility] Physician GroupComment on above:Performed By: #### CBC, [id number], T4F, ETOH, LIPID, CMP, TSH3 wRFLX #### [place] [address] USABarbiturate Screen,UrineNegativeNormalNegativeMorton Plant North Bay Hospital Physician GroupComment on above:Performed By: #### CBC, [id number], T4F, ETOH, LIPID, CMP, TSH3 wRFLX #### [place] [address] USABenzodiazepines Screen,UrineNegativeNormalNegativeMorton Plant [facility] Bay Hospital Physician GroupComment on above:Performed By: #### CBC, [id number], T4F, ETOH, LIPID, CMP, TSH3 wRFLX #### [place] [address] USACannabinoid Screen,UrinePositiveHighNegativeMorton Plant North Bay Hospital Physician GroupComment on above:Result Comment: These are unconfirmed results and should not be used for legal purposes. Drug Cut-Off Concentration: AMPH 1000 ng/mL FIONA 200 ng/mL KIMMY 200 ng/mL COCM 300 ng/mL OP 300 ng/mL PCP 25 ng/mL THC 20 ng/mL PERFORMED BY: [place] [address] PATHOLOGIST RESISTANCE WELDER AMBER HENNING M.D.Performed By: #### CBC, [id number], T4F, ETOH, LIPID, CMP, TSH3 wRFLX #### [place] [address] USACocaine Screen,UrineNegativeNormalNegativeMorton Plant North Bay Hospital Physician GroupComment on above:Performed By: #### CBC, [id number], T4F, ETOH, LIPID, CMP, TSH3 wRFLX #### [place] [address] USAOpiate Screen,UrineNegativeNormalNegativeThe [facility] Physician GroupComment on above:Performed By: #### CBC, [id number], T4F, ETOH, LIPID, CMP, TSH3 wRFLX #### [place] [address] USAPhencyclidine Screen,UrineNegativeNormalNegativeThe [facility] Physician GroupComment on above:Performed By: #### CBC, [id number], T4F, ETOH, LIPID, CMP, TSH3 wRFLX #### [place] [address] USAEosinophils Auto (Bld) [#/Vol]Ordered By: Goyo Epps on 57-42-1663Yzwvmevulkb (Bld) [#/Vol]Automated eosinophil count0.0-0.45C[facility] Clinic Avon HospitalEosinophils [#/volume] in Blood by Automated countOrdered By: Goyo Epps on 75-52-1760Gumkreqanlm (Bld) [#/Vol]0.0 10*3/uLNormal 0.0-0.45[facility] HospitalComment on above:Performed By: #### [id number], TSH3 wRFLX, LIPID #### [place] [address] USAEosinophils/100 WBC Auto (Bld)Ordered By: Goyo Epps on 74-91-3997Pyzeybrgknu/100 WBC (Bld)Automated eosinophil %.[facility] HospitalEosinophils/100 leukocytes in Blood by Automated countOrdered By: Goyo Epps on 77-34-2589Glaacofwngf/100 WBC (Bld)0.2 %Normal.[facility] HospitalComment on above:Performed By: #### [id number], TSH3 wRFLX, LIPID #### [place] [address] USAEpithelial cells.squamous [#/area] in Urine sediment by Automated countOrdered By: Goyo Epps on 22-09-3078Ykkqogsiwu cells.squamous Auto (Urine sed) [#/Area]Epithelial cells.squamous [#/area] in Urine sediment by Automated countHigh070 Mullins StreetEpithelial cells.squamous Auto (Urine sed) [#/Area]5-9 [HPF]High02FOhioHealth Grove City Methodist HospitalErythrocyte distribution width Auto (RBC) [Ratio]Ordered By: Goyo Epps on 79-78-0727Cdnetqmexnv distribution width (RBC) [Ratio] Erythrocyte distribution width [Ratio] by Automated count11.9-15.3FOhioHealth Grove City Methodist HospitalErythrocyte distribution width [Ratio] by Automated count Ordered By: Goyo Epps on 74-27-3934Xisfqkohihc distribution width (RBC) [Ratio]14.5 %Tsqczq90.9-15.3FOhioHealth Grove City Methodist HospitalComment on above: Performed By: #### [id number], TSH3 wRFLX, LIPID #### [facility] [address] [place] [address] USAErythrocytes [#/area] in Urine sediment by Automated count Ordered By: Goyo Epps on 73-90-6486WBG Auto (Urine sed) [#/Area]Erythrocytes [#/area] in Urine sediment by Automated count0-4FOhioHealth Grove City Methodist HospitalRBC Auto (Urine sed) [#/Area]3-4 [HPF]0-4FOhioHealth Grove City Methodist Hospital Erythrocytes [#/volume] in Blood by Automated countOrdered By: Goyo Epps on 14-55-5642WVC (Bld) [#/Vol]4.17 10*6/uLNormal3.60-5.00[facility] HospitalComment on above:Performed By: #### [id number], TSH3 wRFLX, LIPID #### [facility] [address] [place] [address] USAEthanol [Mass/volume] in Serum or PlasmaOrdered By: Goyo Epps on 79-21-6597Oymwdes [Mass/Vol]Ethanol [Mass/volume] in Serum or PlasmaCleveland Clinic Avon HospitalComment on above:Test not performed Ethanol [Mass/Vol]mg/dLNoPremier Health Miami Valley HospitalComment on above: Performed By: #### [id number], TSH3 wRFLX, LIPID #### [facility] [address] [place] [address] USAEthyl Alcohol Profileon 93-56-6470Xqcqqjk EthanolNot performedNoNovant Health / NHRMC Physician GroupComment on above:Result Comment: PERFORMED BY: [facility] [address] [place] [address] PATHOLOGIST RESISTANCE WELDER AMBER HENNING M.D.Performed By: #### [id number], TSH3 wRFLX, LIPID #### [facility] [address] [place] [address] USAGlobulin Calc (S) [Mass/Vol]Ordered By: Goyo Epps on 53-02-0447Mutaxswy (S) [Mass/Vol]Serum globulin measurement by calculation (mass/volume)[facility]on HospitalGlucose [Mass/volume] in Serum or PlasmaOrdered By: Goyo Epps on 39-95-7807Ivlmdlx [Mass/Vol]Glucose [Mass/volume] in Serum or Hfozmd45-524FhjaywkvmCleveland Clinic Avon HospitalComment on above:ADA recommended reference rangeRandom Glucose Reference Range is dependent on time and content of last meal. Glucose of more than 200 mg/dL in a nonstressed, ambulatory subject supports the diagnosisof Diabetes Mellitus. Glucose [Mass/Vol]94 mg/eQWgczpc50-192CffabbkzzCleveland Clinic Avon HospitalComment on above:ADA recommended reference rangeRandom Glucose Reference Range is dependent on time and content of last meal. Glucose of more than 200 mg/dL in a nonstressed, ambulatory subject supports the diagnosisof Diabetes Mellitus. Result Comment: Random Glucose Reference Range is dependent on time and content of last meal. Glucose of more than 200 mg/dL in a nonstressed, ambulatory subject supports the diagnosis of Diabetes Mellitus. ADA recommended reference rangePerformed By: #### [id number], TSH3 wRFLX, LIPID #### [facility] [address] [place] [address] USAGlucose [Mass/volume] in Urine by Test stripOrdered By: Goyo Epps on 50-63-2359Audfzez Test strip (U) [Mass/Vol]Glucose [Mass/volume] in Urine by Test stripNoPremier Health Miami Valley HospitalGlucose Test strip (U) [Mass/Vol]Normal mg/dLNormWexner Medical CenterHCG ( test) IA.rapid Ql (U)Ordered By: Goyo Epps on 88-57-9229FJL ( test) Ql (U)Urine human chorionic gonadotropin (hCG) detection by immunoassay [facility] HospitalHCG ( test) Ql (U)NegativeCleveland Clinic Avon HospitalHCG,Urineon 06-41-6926Rfec HCG ( test) Ql (U) NegativeNoNovant Health / NHRMC Physician GroupComment on above:Order Comment: Name Collection Type:: Clean-Voided MidstreamResult Comment: PERFORMED BY: [place] [address] PATHOLOGIST RESISTANCE WELDER AMBER HENNING M.D.Performed By: #### CBC, [id number], T4F, ETOH, LIPID, CMP, TSH3 wRFLX #### [facility] [address] [place] [address] USAHematocrit Auto (Bld) [Volume fraction]Ordered By: Goyo Epps on 31-68-6202Vgaagifxfb (Bld) [Volume fraction]Hematocrit [Volume Fraction] of Blood by Automated count34.0-46.4FOhioHealth Grove City Methodist HospitalHematocrit [Volume Fraction] of Blood by Automated countOrdered By: Goyo Epps on 49-83-1416Nprycgutsd (Bld) [Volume fraction]35.9 %Mapuew39.0-46.4FOhioHealth Grove City Methodist HospitalComment on above:Performed By: #### [id number], TSH3 wRFLX, LIPID #### [facility] [address] [place] [address] USAHemoglobin Test strip Ql (U)Ordered By: Goyo Epps on 90-12-7776Vjejlbrsrh Ql (U)Hemoglobin [Presence] in Urine by Test stripNegative [facility] HospitalHemoglobin Ql (U)NegativeNegativeCleveland Clinic Avon HospitalHemoglobin [Mass/volume] in BloodOrdered By: Goyo Epps on 60-52-3814Wqdrtumizb (Bld) [Mass/Vol]Hemoglobin [Mass/volume] in Blood 11.8-15.4FOhioHealth Grove City Methodist HospitalHemoglobin (Bld) [Mass/Vol]12.2 g/dL Abmfpc54.8-15.4FOhioHealth Grove City Methodist HospitalComment on above:Performed By: #### [id number], TSH3 wRFLX, LIPID #### [facility] [address] [place] [id number] USAHyaline casts [#/area] in Urine sediment by Automated countOrdered By: Goyo Epps on 79-56-2860Ckaehns casts Auto (Urine sed) [#/Area]Hyaline casts [#/area] in Urine sediment by Automated count0-8C[facility] Clinic Avon HospitalHyaline casts Auto (Urine sed) [#/Area]None [LPF]0-8 [facility] HospitalKetones Test strip Ql (U)Ordered By: Goyo Epps on 02-79-3141Birrftj Ql (U)Ketones [Presence] in Urine by Test strip NegativeCleveland Clinic Avon HospitalKetones [Presence] in Urine by Test stripOrdered By: Goyo Epps on 75-88-9070Bktubbe Ql (U)NegativeNormalNegative [facility] HospitalComment on above:Order Comment: Name Collection Type:: Clean-Voided MidstreamPerformed By: #### CBC, [id number], T4F, ETOH, LIPID, CMP, TSH3 wRFLX #### [facility] [address] [place] [address] USALeukocyte esterase [Presence] in Urine by Test strip Ordered By: Goyo Epps on 20-12-4915Pntecxbzc esterase Test strip Ql (U) Leukocyte esterase [Presence] in Urine by Test stripNegativeCleveland Clinic Avon HospitalLeukocyte esterase Test strip Ql (U)NegativeNormalNegative [facility] HospitalComment on above:Order Comment: Name Collection Type:: Clean-Voided MidstreamPerformed By: #### CBC, [id number], T4F, ETOH, LIPID, CMP, TSH3 wRFLX #### [facility] [address] [place] [address] USALeukocytes [#/area] in Urine sediment by Automated count Ordered By: Goyo Epps on 71-56-6314XPW Auto (Urine sed) [#/Area]Leukocytes [#/area] in Urine sediment by Automated count0-4FOhioHealth Grove City Methodist HospitalWBC Auto (Urine sed) [#/Area]1-2 [HPF]0-4FOhioHealth Grove City Methodist Hospital Leukocytes [#/volume] corrected for nucleated erythrocytes in Blood by Automated counOrdered By: Goyo Epps on 94-10-1852RSX corrected for nucl RBC Auto (Bld) [#/Vol]Leukocytes [#/volume] corrected for nucleated erythrocytes in Blood by Automated coun3.8-11.6FOhioHealth Grove City Methodist HospitalWBC corrected for nucl RBC Auto (Bld) [#/Vol]7.1 10*3/uL3.8-11.6FOhioHealth Grove City Methodist Hospital Leukocytes [#/volume] in Blood by Automated countOrdered By: Goyo Epps on 70-72-0954FDX (Bld) [#/Vol]7.1 10*3/uLNormal3.8-11.6FOhioHealth Grove City Methodist HospitalComment on above:Performed By: #### [id number], TSH3 wRFLX, LIPID #### [facility] [address] [place] [address] USALipid Panelon 77-36-5474REO Cholesterol,Eivkrbmdou39 mg/dL Normal0-100The [facility] Physician GroupComment on above:Result Comment: LDL ATP III CLASSIFICATION LDL less than 100 mg/dL Optimal LDL 100-129 mg/dL Near or above optimal LDL 130-159 mg/dL Borderline high LDL 160-189 mg/dL High LDL greater than 189 mg/dL Very highPerformed By: #### [id number], TSH3 wRFLX, LIPID #### [facility] [address] [place] [address] USATriglyceride w/Tgynwe30 mg/dLNormal0-149The [facility] Physician GroupComment on above:Result Comment: TRIG ATP III CLASSIFICATION TRIG less than 150 mg/dL Normal TRIG 150-199 mg/dL Borderline high TRIG 200-500 mg/dL High TRIG greater than 500 mg/dL Very high Standard traceable to the Center for Disease Conrtrol and Prevention (CDC) test method.Performed By: #### [id number], TSH3 wRFLX, LIPID #### [facility] [address] [place] [address] USAVLDL MSSEDTRAEBZ87 mg/dLAdventHealth New Smyrna Beach Physician GroupComment on above:Performed By: #### [id number], TSH3 wRFLX, LIPID #### [facility] [address] [place] [id number] USALymphocytes Auto (Bld) [#/Vol]Ordered By: Goyo Epps on 05-19-0629Wkqtzcvoice (Bld) [#/Vol]Lymphocytes [#/volume] in Blood by Automated count1.00-4.8C[facility] HospitalLymphocytes [#/volume] in Blood by Automated countOrdered By: Goyo Epps on 33-31-6760Ptnmcuthfkk (Bld) [#/Vol] 2.8 10*3/uLNormal1.00-4.8[facility] HospitalComment on above: Performed By: #### [id number], TSH3 wRFLX, LIPID #### [facility] [address] [place] [id number] USALymphocytes/100 WBC Auto (Bld)Ordered By: Goyo Epps on 38-27-9502Tapzhujgskm/100 WBC (Bld)Lymphocytes/100 leukocytes in Blood by Automated count.[facility] HospitalLymphocytes/100 leukocytes in Blood by Automated countOrdered By: Goyo Epps on 34-14-6676Exznhjxshxz/100 WBC (Bld)39.7 %Normal.[facility] HospitalComment on above: Performed By: #### [id number], TSH3 wRFLX, LIPID #### [facility] [address] [place] [id number] USAH Auto (RBC) [Entitic mass]Ordered By: Goyo Epps on 96-68-5616KYC (RBC) [Entitic mass]MCH [Entitic mass] by Automated count24.7-34.3 [facility] [Entitic mass] by Automated countOrdered By: Goyo Epps on 40-78-7153CRV (RBC) [Entitic mass]29.2 rxDqihwo37.7-34.3 [facility] HospitalComment on above:Performed By: #### [id number], TSH3 wRFLX, LIPID #### [facility] [address] [place] [id number] USAHC Auto (RBC) [Mass/Vol]Ordered By: Goyo Epps on 89-94-1050AEQE (RBC) [Mass/Vol]MCHC [Mass/volume] by Automated count32.0-35.0 [facility] HospitalHC (RBC) [Mass/Vol]33.9 g/dL32.0-35.0 [facility] HospitalV Auto (RBC) [Entitic vol]Ordered By: Goyo Epps on 39-21-4806JOT (RBC) [Entitic vol]MCV [Entitic volume] by Automated count 80-100[facility] HospitalMCV [Entitic volume] by Automated count Ordered By: Goyo Epps on 55-34-6050OIQ (RBC) [Entitic vol]86.2 sZHemqvc13-364 [facility] HospitalComment on above:Performed By: #### [id number], TSH3 wRFLX, LIPID #### [facility] [address] [place] [address] USAMonocyte distribution width [Entitic volume] in Blood by AutomatedOrdered By: Goyo Epps on 34-12-4667Wcauirze distribution width Auto (Bld) [Entitic vol]Monocyte distribution width [Entitic volume] in Blood by Automated0.00-20.00[facility] HospitalMonocyte distribution width Auto (Bld) [Entitic vol]18.51 %0.00-20.00[facility] Monocytes Auto (Bld) [#/Vol]Ordered By: Goyo Epps on 97-05-8959Bmnbjglto (Bld) [#/Vol]Automated blood monocyte count0.0-0.8[facility] HospitalMonocytes [#/volume] in Blood by Automated countOrdered By: Goyo Epps on 85-14-8212Jbhyipwup (Bld) [#/Vol]0.5 10*3/uLNormal0.0-0.8[facility] HospitalComveterans affairs ann [facility] system on above:Performed By: #### [id number], TSH3 wRFLX, LIPID #### [facility] [address] [place] [address] USAMonocytes/100 WBC Auto (Bld)Ordered By: Goyo Epps on 57-52-8336Okgskyobb/100 WBC (Bld)Automated monocyte %.[facility] HospitalMonocytes/100 leukocytes in Blood by Automated countOrdered By: Goyo Epps on 52-46-1017Rxidksdjq/100 WBC (Bld)7.3 %Normal.[facility] HospitalComment on above:Performed By: #### [id number], TSH3 wRFLX, LIPID #### [facility] [address] [place] [address] USAMucus [Presence] in Urine by AutomatedOrdered By: Goyo Epps on 01-61-1082Brxzu Auto Ql (U)Mucus [Presence] in Urine by Automated AbnormalCleveland Clinic Avon HospitalMucus Auto Ql (U)1+ [LPF]Abnormal [facility] HospitalNeutrophils Auto (Bld) [#/Vol]Ordered By: Goyo Epps on 82-03-5311Gwxouvigfdf (Bld) [#/Vol]Neutrophils [#/volume] in Blood by Automated count1.8-7.7FOhioHealth Grove City Methodist HospitalNeutrophils [#/volume] in Blood by Automated countOrdered By: Goyo Epps on 11-14-2024 Neutrophils (Bld) [#/Vol]3.7 10*3/uLNormal1.8-7.7FOhioHealth Grove City Methodist HospitalComment on above:Performed By: #### [id number], TSH3 wRFLX, LIPID #### [facility] [address] [place] [address] USANeutrophils/100 WBC Auto (Bld)Ordered By: Goyo Epps on 64-72-6922Xiuzhjnrkzh/100 WBC (Bld)Automated neutrophil %.[facility] HospitalNeutrophils/100 leukocytes in Blood by Automated countOrdered By: Goyo Epps on 44-96-6136Bxbpxbuzddr/100 WBC (Bld)52.4 %Normal.[facility] HospitalComment on above:Performed By: #### [id number], TSH3 wRFLX, LIPID #### [facility] [address] [place] [address] USANitrite Test strip Ql (U)Ordered By: Goyo Epps on 18-97-4155Azcmhrm Ql (U)Nitrite [Presence] in Urine by Test stripNegative [facility] HospitalNitrite Ql (U)NegativeNegativeCleveland Clinic Avon HospitalNo Panel InformationOrdered By: Goyo Epps on 87-83-3203Jutjrpxde GFR (CKD-EPI)> 60.0 mL/MinCleveland Clinic Avon Hospital Pharmacy Creatinine Clearance (Ucod153.40[facility] Nucleated erythrocytes [Presence] in Blood by Automated countOrdered By: Goyo Epps on 05-87-9326Diajqtlqs RBC Auto Ql (Bld)Nucleated erythrocytes [Presence] in Blood by Automated count0-0.5FOhioHealth Grove City Methodist HospitalNucleated RBC Auto Ql (Bld)0.1 /100{WBC}0-0.5FOhioHealth Grove City Methodist HospitalOpiates [Presence] in Urine by Screen methodOrdered By: Goyo Epps on 11-14-2024 Opiates Screen Ql (U)Opiates [Presence] in Urine by Screen methodNegative [facility] HospitalOpiates Screen Ql (U)NegativeNegativeCleveland Clinic Avon HospitalPhencyclidine Screen Ql (U)Ordered By: Goyo Epps on 82-01-4303Lfhteunhwbrnx Ql (U)Phencyclidine [Presence] in Urine by Screen method NegativeCleveland Clinic Avon HospitalPhencyclidine Ql (U)NegativeNegative [facility] HospitalPlatelet mean volume Auto (Bld) [Entitic vol] Ordered By: Goyo Epps on 51-05-9138Vhlpqpnc mean volume (Bld) [Entitic vol] Platelet mean volume [Entitic volume] in Blood by Automated count6.3-10.7 [facility] HospitalPlatelet mean volume [Entitic volume] in Blood by Automated countOrdered By: Goyo Epps on 21-04-2818Oyhsuivv mean volume (Bld) [Entitic vol]7.7 fLNormal6.3-10.7FOhioHealth Grove City Methodist HospitalComment on above:Performed By: #### [id number], TSH3 wRFLX, LIPID #### [facility] [address] [place] [address] USAPlatelets Auto (Bld) [#/Vol]Ordered By: Goyo Epps on 05-43-8515Qjatukyas (Bld) [#/Vol]Platelets [#/volume] in Blood by Automated -405BnqlujtguCleveland Clinic Avon HospitalPlatelets [#/volume] in Blood by Automated countOrdered By: Goyo Epps on 53-05-2443Orjltfepy (Bld) [#/Vol]231 10*3/cBYdbwae653-388MeppqaognCleveland Clinic Avon HospitalComment on above:Performed By: #### [id number], TSH3 wRFLX, LIPID #### [facility] [address] [place] [address] USAPotassium [Moles/volume] in Serum or PlasmaOrdered By: Goyo Epps on 82-40-0588Kmqojkcrh [Moles/Vol]Potassium [Moles/volume] in Serum or Plasma3.5-5.1FOhioHealth Grove City Methodist HospitalPotassium [Moles/Vol]3.7 mmol/LNormal3.5-5.1FOhioHealth Grove City Methodist HospitalComment on above:Performed By: #### [id number], TSH3 wRFLX, LIPID #### [place] [id number] USAProtein Test strip (U) [Mass/Vol]Ordered By: Goyo Epps on 32-98-2798Olozltq (U) [Mass/Vol]Protein [Mass/volume] in Urine by Test strip HighNegativeCleveland Clinic Avon HospitalProtein [Mass/volume] in Serum or PlasmaOrdered By: Goyo Epps on 27-54-1578Jzavodg [Mass/Vol]Protein [Mass/volume] in Serum or Plasma6.4-8.9[facility] HospitalProtein [Mass/Vol]7.1 g/dLNormal6.4-8.9[facility] HospitalComment on above:Performed By: #### [id number], TSH3 wRFLX, LIPID #### [facility] [address] [place] [address] USAProtein [Mass/volume] in Urine by Test stripOrdered By: Goyo Epps on 59-58-0109Zjsmkxe (U) [Mass/Vol]20 mg/dLHighNegativeCleveland Clinic Avon HospitalComment on above:Order Comment: Name Collection Type:: Clean-Voided MidstreamPerformed By: #### CBC, [id number], T4F, ETOH, LIPID, CMP, TSH3 wRFLX #### [facility] [address] [place] [address] USARBC Auto (Bld) [#/Vol]Ordered By: Goyo Epps on 02-43-0368NGT (Bld) [#/Vol]Erythrocytes [#/volume] in Blood by Automated count 3.60-5.00K[facility]tering Health Prebleerum globulin measurement by calculation (mass/volume)Ordered By: Goyo Epps on 70-25-1333Xdggpyfj (S) [Mass/Vol]2.8 g/dLNormalCleveland Clinic Avon HospitalComment on above: Performed By: #### [id number], TSH3 wRFLX, LIPID #### [facility] [address] [place] [address] USASerum or plasma albumin/globulin mass ratioOrdered By: Goyo Epps on 67-59-0456Uyyvfnu/Globulin [Mass ratio]Serum or plasma albumin/globulin mass ratioCleveland Clinic Avon HospitalAlbumin/Globulin [Mass ratio]1.5 {ratio}NormalCleveland Clinic Avon HospitalComment on above: Performed By: #### [id number], TSH3 wRFLX, LIPID #### [address] [address] USASerum or plasma anion gap determinationOrdered By: Goyo Epps on 02-29-0364Vuwas gap [Moles/Vol]Serum or plasma anion gap determination 6.0-15.0[facility] HospitalAnion gap [Moles/Vol]9.9 mmol/LNormal 6.0-15.0[facility] HospitalComment on above:Performed By: #### [id number], TSH3 wRFLX, LIPID #### [facility] [address] [place] [address] USASerum or plasma ethanol measurement (mass/volume)Ordered By: Goyo Epps on 31-26-1353Zumarmr [Mass/Vol]TNFayette County Memorial HospitalComment on above:Test not performedSerum or plasma total cholesterol/high density lipoprotein (HDL) cholesterol mass ratOrdered By: Goyo Epps on 82-79-5780Bwcwrznipru.total/Cholesterol in HDL [Mass ratio]Serum or plasma total cholesterol/high density lipoprotein (HDL) cholesterol mass rat<5.0[facility] HospitalCholesterol.total/Cholesterol in HDL [Mass ratio]2.9 {ratio}Normal<5.0[facility] HospitalComment on above:Performed By: #### [id number], TSH3 wRFLX, LIPID #### [facility] [address] [place] [address] USASodium [Moles/volume] in Serum or PlasmaOrdered By: Goyo Epps on 63-27-8084Cfrhbe [Moles/Vol]Sodium [Moles/volume] in Serum or Qvwwbz623-237FilplpqriKettering Health Prebleodium [Moles/Vol]139 mmol/LNormal 136-145[facility] HospitalComment on above:Performed By: #### [id number], TSH3 wRFLX, LIPID #### [facility] [address] [place] [address] USASpecific gravity Test strip (U) [Rel density]Ordered By: Goyo Epps on 11-51-1616Aikqadbn gravity (U) [Rel density]Specific gravity of Urine by Test stripHigh1.001-1.030K[facility]tering Health Preblepecific gravity (U) [Rel density]1.787Bcks2.001-1.030[facility] Thyroid Stim Hormone w/Rflxon 26-74-8179Etonsjw Stim Hormone w/Rflx2.22 u[iU]/mL Normal0.45-5.33[facility] Physician GroupComment on above:Performed By: #### [id number], TSH3 wRFLX, LIPID #### [facility] [address] [place] [address] USAThyrotropin [Units/volume] in Serum or PlasmaOrdered By: Goyo Epps on 27-76-8982IUW QnThyrotropin [Units/volume] in Serum or Plasma 0.45-5.33[facility] HospitalTSH Qn2.22 m[IU]/L0.45-5.33[facility] HospitalTriglyceride [Mass/volume] in Serum or PlasmaOrdered By: Goyo Epps on 63-44-8257Idzfnfjbktsv [Mass/Vol]Triglyceride [Mass/volume] in Serum or Plasma0[facility] HospitalComment on above:TRIG ATP III CLASSIFICATIONTRIG less than 150 mg/dL NormalTRIG 150-199 mg/dL Borderline highTRIG 200-500 mg/dL High TRIG greater than 500 mg/dL Very highStandard traceable to the Center for Disease Conrtrol and Prevention (CDC) test method. Triglyceride [Mass/Vol]56 mg/dL0[facility] HospitalComment on above:TRIG ATP III CLASSIFICATIONTRIG less than 150 mg/dL NormalTRIG 150-199 mg/dL Borderline highTRIG 200-500 mg/dL High TRIG greater than 500 mg/dL Very highStandard traceable to the Center for Disease Conrtrol and Prevention (CDC) test method.Urea nitrogen [Mass/volume] in Serum or PlasmaOrdered By: Goyo Epps on 23-06-6491Ppwg nitrogen [Mass/Vol]Urea nitrogen [Mass/volume] in Serum or Plasma01-10[facility] HospitalUrea nitrogen [Mass/Vol]10 mg/dL Normal01-10[facility] HospitalComment on above:Performed By: #### [id number], TSH3 wRFLX, LIPID #### [facility] [address] [place] [address] USAUrobilinogen Test strip (U) [Mass/Vol]Ordered By: Goyo Epps on 11-41-3981Vuyupwkmsrob (U) [Mass/Vol]Urobilinogen [Mass/volume] in Urine by Test stripMercy Health – The Jewish HospitalUrobilinogen (U) [Mass/Vol]2 mg/dLMercy Health – The Jewish HospitalVitamin D 25 Hydroxy Totalon 90-66-5809Fzojdjq D 25 Hydroxy Total8.5 ng/eWIeq09-645Afn [facility] Physician GroupComment on above:Result Comment: VITAMIN D STATUS 25(OH)VITAMIN D RANGE (ng/mL) Deficient <20 Insufficient 20 to <30 Sufficient 30 to 100 Reference: Roly Trevino, Kassidy SHAH, et al. Evaluation,treatment, and prevention of vitamin D deficiency; an Endocrine Society clinical practice guideline. JCEM. 2010; 96(7):1911-30. PERFORMED BY: [place] [address] PATHOLOGIST RESISTANCE WELDER AMBER HENNING M.D.Performed By: #### [id number], TSH3 wRFLX, LIPID #### [address] StreetVitamin D+Metabolites [Mass/volume] in Serum or Plasma Ordered By: Goyo Epps on 29-28-7171Mwcoocl D+Metabolites [Mass/Vol]Vitamin D+Metabolites [Mass/volume] in Serum or UgmaqpYay78-451McbttlhyhCleveland Clinic Avon HospitalComment on above:VITAMIN D STATUS 25(OH)VITAMIN D RANGE (ng/mL) Deficient <20 Insufficient 20 to <02Rkdnzotgxh26 to 100Reference: Roly Trevino, Kassidy SHAH, et al. Evaluation,treatment, and prevention of vitamin D deficiency; an Endocrine Society clinical practice guideline. JCEM. 2010; 96(7):1911-30.Vitamin D+Metabolites [Mass/Vol]8.5 ng/fQTmm46-160 [facility] HospitalComment on above:VITAMIN D STATUS 25(OH)VITAMIN D RANGE (ng/mL) Deficient <20 Insufficient 20 to <26Idukjjyxsy03 to 100Reference: Roly Trevino, Kassidy SHAH, et al. Evaluation,treatment, and prevention of vitamin D deficiency; an Endocrine Society clinical practice guideline. JCEM. 2010; 96(7):1911-30.WBC Auto (Bld) [#/Vol]Ordered By: Goyo Epps on 78-24-1717NSP (Bld) [#/Vol]Leukocytes [#/volume] in Blood by Automated count3.8-11.6FOhioHealth Grove City Methodist Hospital pH Test strip (U)Ordered By: Goyo Epps on 12-20-1307lG (U)pH of Urine by Test strip5.0-9.0[facility] HospitalpH of Urine by Test stripOrdered By: Goyo Epps on 48-38-0113nA (U)7.0 [pH]Normal5.0-9.0[facility] HospitalComment on above:Order Comment: Name Collection Type:: Clean- Voided MidstreamPerformed By: #### CBC, [id number], T4F, ETOH, LIPID, CMP, TSH3 wRFLX #### [facility] [address] [place] [address] USAECG 12 lead ECGon 82-59-6381DHD 12 lead ECGSOUTHWEST [facility] [address] [place] [address] [place] [address] Electrocardiograph Report Signed Patient: Barbra Claros MR#: [id number] : 1995 Acct:[id number] Age/Sex: 29 / F ADM Date: 11/07/24 Loc: Room: [address] [place] [address] Type: ADM IN Attending Dr: Kit Gutierrez [...] Signed By: PAUL JUAREZ MD Transcribed By: CHANA Signed By Paul Juarez MD 0 11/07/[address] [place] [address] Physician GroupAlanine aminotransferase [Enzymatic activity/volume] in Serum or PlasmaOrdered By: Duane Simons on 56-29-7846RKG [Catalytic activity/Vol]Alanine aminotransferase [Enzymatic activity/volume] in Serum or Plasma7C[facility] HospitalALT [Catalytic activity/Vol]11 U/LNormal7[address] StreetComment on above:Performed By: #### [id number], TSH3 wRFLX, LIPID #### [facility] [address] [place] [address] USAAlbumin [Mass/volume] in Serum or Plasma by Bromocresol green (BCG) dye binding methoOrdered By: Duane Simons on 84-38-9315Jjqxwvj BCG dye [Mass/Vol]Albumin [Mass/volume] in Serum or Plasma by Bromocresol green (BCG) dye binding metho3.5-5.7FOhioHealth Grove City Methodist HospitalAlbumin BCG dye [Mass/Vol]4.5 g/dL3.5-5.7FOhioHealth Grove City Methodist HospitalAlkaline phosphatase [Enzymatic activity/volume] in Serum or PlasmaOrdered By: Duane Simons on 50-37-8604WGX [Catalytic activity/Vol]Alkaline phosphatase [Enzymatic activity/volume] in Serum or Dudjwn88-835KpvqqkzxqCleveland Clinic Avon HospitalALP [Catalytic activity/Vol]52 U/APlkqro99-075Yglzpm[address] Comment on above:Performed By: #### [id number], TSH3 wRFLX, LIPID #### [facility] [address] [place] [id number] USAAmphetamine Screen Ql (U)Ordered By: Duane Simons on 76-09-4117Djvblynpaedq Ql (U)Amphetamines screenNegativeCleveland Clinic Avon HospitalAmphetamines Ql (U)NegativeNegativeCleveland Clinic Avon HospitalAppearance of UrineOrdered By: Duane Simons on 91-17-4064Sahauwkosb (U)Urine appearanceCleWhite HospitalAppearance (U)Clear NormalMartin Memorial HospitalComment on above:Order Comment: Name Collection Type:: Clean-Voided MidstreamPerformed By: #### CBC, [id number], T4F, ETOH, LIPID, CMP, TSH3 wRFLX #### [facility] [address] [place] [place] [address] USAAspartate aminotransferase [Enzymatic activity/volume] in Serum or PlasmaOrdered By: Duane Simons on 36-84-8366UBC [Catalytic activity/Vol]Aspartate aminotransferase [Enzymatic activity/volume] in Serum or Hwywep55-60NboubgfrbCleveland Clinic Avon HospitalAST [Catalytic activity/Vol]13 U/L Pzrsnb85-97IwyxixycbCleveland Clinic Avon HospitalComment on above:Performed By: #### [id number], TSH3 wRFLX, LIPID #### [facility] [address] [place] [address] USABacteria [Presence] in Urine by AutomatedOrdered By: Duane Simons on 67-87-6905Ttskfrpa Auto Ql (U)Bacteria [Presence] in Urine by AutomatedNone [facility] HospitalBacteria Auto Ql (U)None seen [HPF]None [facility] HospitalBarbiturates [Presence] in Urine by Screen methodOrdered By: Duane Simons on 87-77-6825Bkkhrybgayvy Screen Ql (U)Barbiturates [Presence] in Urine by Screen methodNegativeCleveland Clinic Avon HospitalBarbiturates Screen Ql (U)NegativeNegativeCleveland Clinic Avon HospitalBasophils Auto (Bld) [#/Vol]Ordered By: uDane Simons on 97-67-6757Qzuzsgpzx (Bld) [#/Vol]Automated basophil count0.0-0.2FOhioHealth Grove City Methodist HospitalBasophils [#/volume] in Blood by Automated countOrdered By: Duane Simons on 84-78-3168Fvdnbckfw (Bld) [#/Vol]0.0 10*3/uLNormal 0.0-0.2FOhioHealth Grove City Methodist HospitalComment on above:Result Comment: PERFORMED BY: [facility] [address] [id number] PATHOLOGIST RESISTANCE WELDER ZULEIMA ZHANG M.D.Performed By: #### [id number], TSH3 wRFLX, LIPID #### [facility] [address] [place] [id number] USABasophils/100 WBC Auto (Bld)Ordered By: Duane Simons on 01-93-3331Xkkmuayav/100 WBC (Bld)Automated basophil %.[facility]on HospitalBasophils/100 leukocytes in Blood by Automated countOrdered By: Duane Simons on 94-05-0153Wmidrckzn/100 WBC (Bld)0.5 %Normal.[facility] Avon HospitalComment on above:Performed By: #### [id number], TSH3 wRFLX, LIPID #### [facility] [address] [place] [id number] USABenzodiazepines Screen Ql (U)Ordered By: Duane Simons on 33-02-9684Ofdtyahqacssxvj Ql (U)Benzodiazepines [Presence] in Urine by Screen methodNegativeCleveland Clinic Avon HospitalBenzodiazepines Ql (U) NegativeNegativeCleveland Clinic Avon HospitalBenzoylecgonine [Presence] in Urine by Screen methodOrdered By: Duane Simons on 32-10-5877Aitwbvyhdmjubmg Screen Ql (U)Benzoylecgonine [Presence] in Urine by Screen methodNegative [facility]on HospitalBenzoylecgonine Screen Ql (U)NegativeNegative [facility] HospitalBilirubin Test strip Ql (U)Ordered By: Duane Simons on 61-15-3760Euimjxzgi Ql (U)Bilirubin.total [Presence] in Urine by Test stripNegativeCleveland Clinic Avon HospitalBilirubin Ql (U) NegativeNegativeCleveland Clinic Avon HospitalBilirubin.total [Mass/volume] in Serum or PlasmaOrdered By: Duane Simnos on 18-59-2898Rnbdprcsg [Mass/Vol]Bilirubin.total [Mass/volume] in Serum or Plasma0.3-1.0C[facility] Clinic Avon HospitalBilirubin [Mass/Vol]0.3 mg/dLNormal0.3-1.0C[facility]on HospitalComment on above:Performed By: #### [id number], TSH3 wRFLX, LIPID #### [facility] [address] [place] [id number] USACalcium [Mass/volume] in Serum or PlasmaOrdered By: Duane Simons on 55-49-8447Livsljq [Mass/Vol]Calcium [Mass/volume] in Serum or Plasma8.6-10.3FOhioHealth Grove City Methodist HospitalCalcium [Mass/Vol]9.1 mg/dL Normal8.6-10.3FOhioHealth Grove City Methodist HospitalComment on above:Performed By: #### [id number], TSH3 wRFLX, LIPID #### [facility] [address] [place] [address] USACannabinoids [Presence] in Urine by Screen methodOrdered By: Duane Simons on 29-31-5068Nlmdntzoqbxs Screen Ql (U)Cannabinoids [Presence] in Urine by Screen methodHighAultman HospitalComment on above:These are unconfirmed results and should not be used for legal purposes. Drug Cut-Off Concentration: AMPH 1000 ng/mL FIONA 200 ng/mL KIMMY 200 ng/mL COCM 300 ng/mL OP 300 ng/mL PCP 25 ng/mL THC 20 ng/mLCannabinoids Screen Ql (U)PositiveHighNegProMedica Defiance Regional HospitalComment on above:These are unconfirmed results and should not be used for legal purposes. Drug Cut-Off Concentration: AMPH 1000 ng/mL FIONA 200 ng/mL KIMMY 200 ng/mL COCM 300 ng/mL OP 300 ng/mL PCP 25 ng/mL THC 20 ng/mLCarbon dioxide, total [Moles/volume] in Serum or PlasmaOrdered By: Duane Simons on 33-42-6947OG2 [Moles/Vol]Carbon dioxide, total [Moles/volume] in Serum or Lpraps43.0-31.0 [facility] HospitalCO2 [Moles/Vol]27.1 mmol/APfplte44.0-31.0 [facility] HospitalComment on above:Performed By: #### [id number], TSH3 wRFLX, LIPID #### [facility] [address] [place] [address] USAChloride [Moles/volume] in Serum or PlasmaOrdered By: Duane Simons on 09-07-8469Htspuqpc [Moles/Vol]Chloride [Moles/volume] in Serum or Jfacjz01-364NfmghcrnyCleveland Clinic Avon HospitalChloride [Moles/Vol]106 mmol/MXzuqbf00-634PdjzapdizCleveland Clinic Avon HospitalComment on above:Performed By: #### RANJEET, TSH3 wRFLX, LIPID #### [facility] [address] [place] [address] USACholesterol [Mass/volume] in Serum or PlasmaOrdered By: Kit Gutierrez on 61-49-3164Mkvkcmbmkcz [Mass/Vol]Cholesterol [Mass/volume] in Serum or Jzjtoz075-937RqhvbmecfCleveland Clinic Avon HospitalComment on above:Chol less than 200 mg/dl low riskChol 201-239 mg/dl borderline riskChol 240 mg/dl and greater high riskCholesterol [Mass/Vol]149 mg/pSNdlqay639-761 [facility] HospitalComment on above:Chol less than 200 mg/dl low riskChol 201-239 mg/dl borderline riskChol 240 mg/dl and greater high riskResult Comment: Chol less than 200 mg/dl low risk Chol 201-239 mg/dl borderline risk Chol 240 mg/dl and greater high riskPerformed By: #### [id number], TSH3 wRFLX, LIPID #### [facility] [address] [place] [id number] USACholesterol in HDL [Mass/volume] in Serum or PlasmaOrdered By: Kit Gutierrez on 72-30-6249Eaxmocyngnd in HDL [Mass/Vol]Serum or plasma high density lipoprotein (HDL) cholesterol salidihkpqx35-65ZxnvkaqjxCleveland Clinic Avon HospitalComment on above:HDL CHOL ATP-III CLASSIFICATION Cardiovascular RiskHDL > or equal to 60 mg/dL LOWHDL < 40 mg/dL HIGHCholesterol in HDL [Mass/Vol]44 mg/eDShvxmg86-28Wliylcrmr73 Delacruz StreetComment on above:HDL CHOL ATP-III CLASSIFICATION Cardiovascular RiskHDL > or equal to 60 mg/dL LOWHDL < 40 mg/dL HIGHResult Comment: HDL CHOL ATP-III CLASSIFICATION Cardiovascular Risk HDL > or equal to 60 mg/dL LOW HDL < 40 mg/dL HIGHPerformed By: #### [id number], TSH3 wRFLX, LIPID #### [facility] [address] [place] [address] USACholesterol in LDL Calc [Mass/Vol]Ordered By: Kit Gutierrez on 08-46-0032Bdrfnyvqakq in LDL [Mass/Vol]Cholesterol in LDL [Mass/volume] in Serum or Plasma by calculationCleveland Clinic Avon HospitalComment on above:LDL ATP III CLASSIFICATIONLDL less than 100 mg/dL OptimalLDL 100-129 mg/dL Near or above lterwygITL196-383 mg/dL Borderline highLDL 160-189 mg/dL HighLDL greater than 189 mg/dL Very highCholesterol in LDL [Mass/Vol]96 mg/dLCleveland Clinic Avon HospitalComment on above:LDL ATP III CLASSIFICATIONLDL less than 100 mg/dL OptimalLDL 100-129 mg/dL Near or above patwakeRIK421-453 mg/dL Borderline highLDL 160-189 mg/dL HighLDL greater than 189 mg/dL Very highCholesterol in VLDL Calc [Mass/Vol]Ordered By: Kit Gutierrez on 01-03-4206Liguyutgvxp in VLDL [Mass/Vol]Cholesterol in VLDL [Mass/volume] in Serum or Plasma by calculationCleveland Clinic Avon HospitalCholesterol in VLDL [Mass/Vol]8 mg/dLCleveland Clinic Avon Hospital Color Auto (U)Ordered By: Duane Simons on 00-97-9056Hbgsn (U)Color of Urine by AutoYellowCleveland Clinic Avon HospitalColor of Urine by AutoOrdered By: Duane Simons on 76-92-9975Aitaq (U)Light-yellowNormalYellowCleveland Clinic Avon HospitalComment on above:Order Comment: Name Collection Type:: Clean-Voided MidstreamPerformed By: #### CBC, [id number], T4F, ETOH, LIPID, CMP, TSH3 wRFLX #### [facility] [address] [place] [address] USAComplete Blood Count Auto Diffon 21-82-0113Ndbv Corpuscular HGB Conc34.2 g/uBZtkxge63.0-35.0[facility] Physician GroupComment on above:Performed By: #### [id number], TSH3 wRFLX, LIPID #### [place] [address] USAMonocytes/100 WBC (Bld)18.05 %Normal0.00-20.00[facility] Physician GroupComment on above:Performed By: #### [id number], TSH3 wRFLX, LIPID #### [place] [address] USANRBC%0.1 /100{WBC}Normal0-0.5[facility] Comment on above:Performed By: #### [id number], TSH3 wRFLX, LIPID #### [place] [address] USAComprehensive Metabolic Panelon 44-89-6002Stujqli [Mass/Vol]4.5 g/dLNormal3.5-5.7[facility] Physician GroupComment on above: Performed By: #### [id number], TSH3 wRFLX, LIPID #### [place] [address] USACreatinine Clr Calc Jgmahpfi705.89NormalThe [facility] Physician GroupComment on above:Result Comment: PERFORMED BY: [place] [address] PATHOLOGIST RESISTANCE WELDER ZULEIMA ZHANG M.D.Performed By: #### [id number], TSH3 wRFLX, LIPID #### [place] [address] USAGFR/1.73 sq M.predicted MDRD (S/P/Bld) [Vol rate/Area] mL/min/{1.73_m2}NormalThe [facility] Physician [facility] CenterComment on above:Performed By: #### [id number], TSH3 wRFLX, LIPID #### [place] [address] USACreatinine [Mass/volume] in Serum or PlasmaOrdered By: Duane Simons on 58-75-1698Thkeihadud [Mass/Vol]Creatinine [Mass/volume] in Serum or Plasma0.60-1.20C[facility] Clinic Avon HospitalCreatinine [Mass/Vol] 0.67 mg/dLNormal0.60-1.20C[facility]on HospitalComment on above: Performed By: #### [id number], TSH3 wRFLX, LIPID #### [facility] [address] [place] [address] USADipstick and Microscopicon 62-58-5223Odjymmox,UrineNone SeenNormalNone SeenMorton Plant North Bay Hospital Physician GroupComment on above:Order Comment: Name Collection Type:: Clean-Voided MidstreamPerformed By: #### CBC, [id number], T4F, ETOH, LIPID, CMP, TSH3 wRFLX #### [place] [address] USABilirubin,UrineNegativeNormalNegativeMorton Plant North Bay Hospital Physician GroupComment on above:Order Comment: Name Collection Type:: Clean- Voided MidstreamPerformed By: #### CBC, [id number], T4F, ETOH, LIPID, CMP, TSH3 wRFLX #### [place] [address] USAGlucose Ql (U)NormalNormalNormalThSaint Alphonsus Regional Medical Center Physician GroupComment on above:Order Comment: Name Collection Type:: Clean-Voided MidstreamPerformed By: #### CBC, [id number], T4F, ETOH, LIPID, CMP, TSH3 wRFLX #### [place] [address] USAHyaline Casts,UrineNoneNormal0-8The [facility] Physician GroupComment on above:Order Comment: Name Collection Type:: Clean-Voided MidstreamPerformed By: #### CBC, [id number], T4F, ETOH, LIPID, CMP, TSH3 wRFLX #### [place] [address] USANitrite,UrineNegativeNormalNegativeMorton Plant North Bay Hospital Physician GroupComment on above:Order Comment: Name Collection Type:: Clean-Voided MidstreamPerformed By: #### CBC, [id number], T4F, ETOH, LIPID, CMP, TSH3 wRFLX #### [place] [address] USAOccult Blood,UrineTraceHighNegativeThe [facility] Physician GroupComment on above:Order Comment: Name Collection Type:: Clean-Voided MidstreamPerformed By: #### CBC, [id number], T4F, ETOH, LIPID, CMP, TSH3 wRFLX #### [place] [address] USAProtein,UrineNegativeNormalNegativeThe [facility] Physician GroupComment on above:Order Comment: Name Collection Type:: Clean-Voided MidstreamPerformed By: #### CBC, [id number], T4F, ETOH, LIPID, CMP, TSH3 wRFLX #### [place] [address] USARBC,UrineNone SeenNormal0-4[facility] Comment on above:Order Comment: Name Collection Type:: Clean-Voided Midstream Performed By: #### CBC, [id number], T4F, ETOH, LIPID, CMP, TSH3 wRFLX #### [place] [address] USASpecificy [place],Urine1.502Nlsutl2.001-1.030[facility] Physician GroupComment on above:Order Comment: Name Collection Type:: Clean- Voided MidstreamPerformed By: #### CBC, [id number], T4F, ETOH, LIPID, CMP, TSH3 wRFLX #### [place] [address] USAUrobilinogen,UrineNormalNormalNormalThe [facility] Physician GroupComment on above:Order Comment: Name Collection Type:: Clean- Voided MidstreamPerformed By: #### CBC, [id number], T4F, ETOH, LIPID, CMP, TSH3 wRFLX #### [place] [address] USAWBC,Upkna4-0Ieqebb6-3Uln [facility] Physician GroupComment on above:Order Comment: Name Collection Type:: Clean-Voided MidstreamPerformed By: #### CBC, [id number], T4F, ETOH, LIPID, CMP, TSH3 wRFLX #### [place] [address] USADrug Screen,Urineon 36-06-1644Rxrnwilsboo Screen,Urine NegativeNormalNegativeThe [facility] Physician GroupComment on above:Performed By: #### [id number], TSH3 wRFLX, LIPID #### [place] [address] USABarbiturate Screen,UrineNegativeNormalNegativeMorton Plant North [facility] Hospital Physician GroupComment on above:Performed By: #### [id number], TSH3 wRFLX, LIPID #### [place] [address] USABenzodiazepines Screen,UrineNegativeNormalNegativeMorton Plant North Bay Hospital Physician GroupComment on above:Performed By: #### [id number], TSH3 wRFLX, LIPID #### [place] [address] USACannabinoid Screen,UrinePositiveHighNegativeMorton Plant North Bay Hospital Physician GroupComment on above:Result Comment: These are unconfirmed results and should not be used for legal purposes. Drug Cut-Off Concentration: AMPH 1000 ng/mL FIONA 200 ng/mL KIMMY 200 ng/mL COCM 300 ng/mL OP 300 ng/mL PCP 25 ng/mL THC 20 ng/mL PERFORMED BY: [place] [address] PATHOLOGIST RESISTANCE WELDER ZULEIMA ZHANG M.D.Performed By: #### [id number], TSH3 wRFLX, LIPID #### [place] [address] USACocaine Screen,UrineNegativeNormalNegativeMorton Plant North [facility] Hospital Physician GroupComment on above:Performed By: #### [id number], TSH3 wRFLX, LIPID #### [place] [address] USAOpiate Screen,UrineNegativeNormalNegativeMorton Plant North [facility] Hospital Physician GroupComment on above:Performed By: #### [id number], TSH3 wRFLX, LIPID #### [facility] [address] [id number] USAPhencyclidine Screen,UrineNegativeNormalNegativeThe [facility] Physician GroupComment on above:Performed By: #### [id number], TSH3 wRFLX, LIPID #### [facility] [address] [place] [address] USAEosinophils Auto (Bld) [#/Vol]Ordered By: Duane Simons on 26-08-0843Zfhdqsfjoco (Bld) [#/Vol]Automated eosinophil count0.0-0.45 [facility] HospitalEosinophils [#/volume] in Blood by Automated countOrdered By: Duane Simons on 61-11-4435Bnwcijhpkdd (Bld) [#/Vol]0.0 10*3/uLNormal0.0-0.45C[facility] HospitalComment on above:Performed By: #### [id number], TSH3 wRFLX, LIPID #### [facility] [address] [place] [id number] USAEosinophils/100 WBC Auto (Bld)Ordered By: Duane Simons on 80-73-7048Xxozcwwsldj/100 WBC (Bld)Automated eosinophil %.[facility] HospitalEosinophils/100 leukocytes in Blood by Automated count Ordered By: Duane Simons on 54-06-4335Djhfyotpiua/100 WBC (Bld)0.1 %Normal. [facility] HospitalComment on above:Performed By: #### [id number], TSH3 wRFLX, LIPID #### [facility] [address] [place] [id number] USAEpithelial cells.squamous [#/area] in Urine sediment by Automated countOrdered By: Duane Simons on 71-84-0933Sklexmdgzz cells.squamous Auto (Urine sed) [#/Area]Epithelial cells.squamous [#/area] in Urine sediment by Automated countCleveland Clinic Avon HospitalEpithelial cells.squamous Auto (Urine sed) [#/Area]N/AFOhioHealth Grove City Methodist Hospital Erythrocyte distribution width Auto (RBC) [Ratio]Ordered By: Duane Simons on 95-77-5538Pexmhoxibqu distribution width (RBC) [Ratio]Erythrocyte distribution width [Ratio] by Automated count11.9-15.3FOhioHealth Grove City Methodist HospitalErythrocyte distribution width [Ratio] by Automated countOrdered By: Duane Simons on 40-73-4031Txyfshxzkcr distribution width (RBC) [Ratio]14.8 %Adiask61.9-15.3FOhioHealth Grove City Methodist HospitalComment on above:Performed By: #### [id number], TSH3 wRFLX, LIPID #### [facility] [address] [place] [id number] USAErythrocytes [#/area] in Urine sediment by Automated count Ordered By: Duane Simons on 44-94-2614NGZ Auto (Urine sed) [#/Area] Erythrocytes [#/area] in Urine sediment by Automated count0-4FOhioHealth Grove City Methodist HospitalRB Auto (Urine sed) [#/Area]None seen [HPF]0-4FOhioHealth Grove City Methodist HospitalErythrocytes [#/volume] in Blood by Automated countOrdered By: Duane Simons on 72-99-9603BDA (Bld) [#/Vol]4.27 10*6/uLNormal3.60-5.00 [facility] HospitalComment on above:Performed By: #### [id number], TSH3 wRFLX, LIPID #### [place] [id number] USAEthanol [Mass/volume] in Serum or PlasmaOrdered By: Duane Simons on 38-87-3131Osrksxh [Mass/Vol]Ethanol [Mass/volume] in Serum or PlasmaCleveland Clinic Avon HospitalComment on above:Test not performed Ethanol [Mass/Vol]mg/dLNormWexner Medical CenterComment on above: Performed By: #### [id number], TSH3 wRFLX, LIPID #### [facility] [address] [place], [place] [address] USAEthyl Alcohol Profileon 44-75-4125Lmzzwaw EthanolNot performedNoNovant Health / NHRMC Physician GroupComment on above:Result Comment: PERFORMED BY: [place] [address] PATHOLOGIST RESISTANCE WELDER ZULEIMA ZHANG M.D.Performed By: #### [id number], TSH3 wRFLX, LIPID #### [facility] [address] [place] [address] USAGlobulin Calc (S) [Mass/Vol]Ordered By: Duane Simons on 67-75-2331Vkogdkrf (S) [Mass/Vol]Serum globulin measurement by calculation (mass/volume)[facility] HospitalGlucose [Mass/volume] in Serum or PlasmaOrdered By: Duane Simons on 19-08-5310Zmprceu [Mass/Vol]Glucose [Mass/volume] in Serum or Umczvw63-565OoienwchhCleveland Clinic Avon HospitalComment on above:ADA recommended reference rangeRandom Glucose Reference Range is dependent on time and content of last meal. Glucose of more than 200 mg/dL in a nonstressed, ambulatory subject supports the diagnosisof Diabetes Mellitus. Glucose [Mass/Vol]89 mg/cFHoqtln16-205LtaztllgeCleveland Clinic Avon HospitalComment on above:ADA recommended reference rangeRandom Glucose Reference Range is dependent on time and content of last meal. Glucose of more than 200 mg/dL in a nonstressed, ambulatory subject supports the diagnosisof Diabetes Mellitus. Result Comment: Random Glucose Reference Range is dependent on time and content of last meal. Glucose of more than 200 mg/dL in a nonstressed, ambulatory subject supports the diagnosis of Diabetes Mellitus. ADA recommended reference rangePerformed By: #### [id number], TSH3 wRFLX, LIPID #### [facility] [address] [place] [address] USAGlucose [Mass/volume] in Urine by Test stripOrdered By: Duane Simons on 14-10-3137Givykkx Test strip (U) [Mass/Vol]Glucose [Mass/volume] in Urine by Test stripNoPremier Health Miami [facility] Hospital Glucose Test strip (U) [Mass/Vol]Normal mg/dLNormWexner Medical CenterHC ( test) IA.rapid Ql (U)Ordered By: Duane Simons on 96-30-3464CID ( test) Ql (U)Urine human chorionic gonadotropin (hCG) detection by immunoassayKettering Health Miamisburg ( test) Ql (U)NegativeCleveland Clinic Avon HospitalHCG,Urineon 47-59-7273Jxcz HCG ( test) Ql (U)NegativeNoNovant Health / NHRMC Physician GroupComment on above:Order Comment: Name Collection Type:: Clean-Voided MidstreamResult Comment: PERFORMED BY: [place] [address] PATHOLOGIST RESISTANCE WELDER ZULEIMA ZHANG M.D.Performed By: #### CBC, [id number], T4F, ETOH, LIPID, CMP, TSH3 wRFLX #### [place] [address] USAHematocrit Auto (Bld) [Volume fraction]Ordered By: Duane Simons on 25-61-0780Dbxfvdebes (Bld) [Volume fraction]Hematocrit [Volume Fraction] of Blood by Automated count34.0-46.4FOhioHealth Grove City Methodist HospitalHematocrit [Volume Fraction] of Blood by Automated countOrdered By: Duane Simons on 56-97-5955Kgshwfnron (Bld) [Volume fraction]36.8 %Normal 34.0-46.4FOhioHealth Grove City Methodist HospitalComment on above:Performed By: #### [id number], TSH3 wRFLX, LIPID #### [place] [id number] USAHemoglobin Test strip Ql (U)Ordered By: Duane Simons on 32-29-3904Toyiqwntah Ql (U)Hemoglobin [Presence] in Urine by Test stripHigh NegativeCleveland Clinic Avon HospitalHemoglobin Ql (U)TraceHighNegative [facility] HospitalHemoglobin [Mass/volume] in BloodOrdered By: Duane Simons on 93-76-5782Hjsxleqrsk (Bld) [Mass/Vol]Hemoglobin [Mass/volume] in Blood11.8-15.4FOhioHealth Grove City Methodist HospitalHemoglobin (Bld) [Mass/Vol]12.6 g/uWWfujkq54.8-15.4FOhioHealth Grove City Methodist HospitalComment on above:Performed By: #### [id number], TSH3 wRFLX, LIPID #### [facility] [address] [place] [address] USAHyaline casts [#/area] in Urine sediment by Automated countOrdered By: Duane Simons on 73-14-5131Prihkhd casts Auto (Urine sed) [#/Area]Hyaline casts [#/area] in Urine sediment by Automated count0-8C[facility] Clinic Avon HospitalHyaline casts Auto (Urine sed) [#/Area]None [LPF]0-8 [facility] HospitalKetones Test strip Ql (U)Ordered By: Duane Simons on 98-41-1515Lfhoylx Ql (U)Ketones [Presence] in Urine by Test strip NegativeCleveland Clinic Avon HospitalKetones [Presence] in Urine by Test stripOrdered By: Duane Simons on 68-90-4327Zhrnkux Ql (U)NegativeNormal NegativeCleveland Clinic Avon HospitalComment on above:Order Comment: Name Collection Type:: Clean-Voided MidstreamPerformed By: #### CBC, [id number], T4F, ETOH, LIPID, CMP, TSH3 wRFLX #### [facility] [address] [place] [id number] USALeukocyte esterase [Presence] in Urine by Test strip Ordered By: Duane Simons on 83-91-8615Wehtscfqu esterase Test strip Ql (U) Leukocyte esterase [Presence] in Urine by Test stripHighNegativeCleveland Clinic Avon HospitalLeukocyte esterase Test strip Ql (U)2+HighNegative [facility] HospitalComment on above:Order Comment: Name Collection Type:: Clean-Voided MidstreamPerformed By: #### CBC, [id number], T4F, ETOH, LIPID, CMP, TSH3 wRFLX #### [facility] [address] [place] [id number] USALeukocytes [#/area] in Urine sediment by Automated count Ordered By: Duane Simons on 23-74-2677KJZ Auto (Urine sed) [#/Area] Leukocytes [#/area] in Urine sediment by Automated count0-4FOhioHealth Grove City Methodist HospitalWBC Auto (Urine sed) [#/Area]1-2 [HPF]0-4FOhioHealth Grove City Methodist HospitalLeukocytes [#/volume] corrected for nucleated erythrocytes in Blood by Automated counOrdered By: Duane Simons on 62-61-8434CAH corrected for nucl RBC Auto (Bld) [#/Vol]Leukocytes [#/volume] corrected for nucleated erythrocytes in Blood by Automated coun3.8-11.6FOhioHealth Grove City Methodist Hospital WBC corrected for nucl RBC Auto (Bld) [#/Vol]5.9 10*3/uL3.8-11.6FOhioHealth Grove City Methodist HospitalLeukocytes [#/volume] in Blood by Automated countOrdered By: Duane Simons on 65-00-6286XRP (Bld) [#/Vol]5.9 10*3/uLNormal3.8-11.6 [facility] HospitalComment on above:Performed By: #### [id number], TSH3 wRFLX, LIPID #### [facility] [address] [place] [address] USALipid Panelon 92-03-8469OUA Cholesterol,Oczfrnfdkr69 mg/dL Normal0-100[facility] Physician GroupComment on above:Result Comment: LDL ATP III CLASSIFICATION LDL less than 100 mg/dL Optimal LDL 100-129 mg/dL Near or above optimal LDL 130-159 mg/dL Borderline high LDL 160-189 mg/dL High LDL greater than 189 mg/dL Very highPerformed By: #### [id number], TSH3 wRFLX, LIPID #### [facility] [address] [place] [address] USATriglyceride w/Qdroez47 mg/dLNormal0-149[facility] Physician GroupComment on above:Result Comment: TRIG ATP III CLASSIFICATION TRIG less than 150 mg/dL Normal TRIG 150-199 mg/dL Borderline high TRIG 200-500 mg/dL High TRIG greater than 500 mg/dL Very high Standard traceable to the Center for Disease Conrtrol and Prevention (CDC) test method.Performed By: #### [id number], TSH3 wRFLX, LIPID #### [facility] [address] [place] [address] USAVLDL CHOLESTEROL8 mg/dLNormalThe [facility] Comment on above:Performed By: #### [id number], TSH3 wRFLX, LIPID #### [facility] [address] [place] [address] USALymphocytes Auto (Bld) [#/Vol]Ordered By: Duane Simons on 19-57-7192Lhabvvdzaia (Bld) [#/Vol]Lymphocytes [#/volume] in Blood by Automated count1.00-4.8[facility] Avon HospitalLymphocytes [#/volume] in Blood by Automated countOrdered By: Duane Simons on 11-06-2024 Lymphocytes (Bld) [#/Vol]2.1 10*3/uLNormal1.00-4.8[facility] Avon HospitalComment on above:Performed By: #### [id number], TSH3 wRFLX, LIPID #### [facility] [address] [place] [address] USALymphocytes/100 WBC Auto (Bld)Ordered By: Duane Simons on 21-68-5292Iobrhzqmgbv/100 WBC (Bld)Lymphocytes/100 leukocytes in Blood by Automated count.[facility] Avon HospitalLymphocytes/100 leukocytes in Blood by Automated countOrdered By: Duane Simons on 06-68-1347Egkgqlbeqtl/100 WBC (Bld)36.1 %Normal.[facility] Avon HospitalComment on above:Performed By: #### [id number], TSH3 wRFLX, LIPID #### [facility] [address] [place], [place] [address] [facility] Auto (RBC) [Entitic mass]Ordered By: Duane Simons on 99-81-7924HAW (RBC) [Entitic mass]MCH [Entitic mass] by Automated count 24.7-34.3FBar[facility] [Entitic mass] by Automated count Ordered By: Duane Simons on 21-44-5942CFL (RBC) [Entitic mass]29.4 pgNormal 24.7-34.3FOhioHealth Grove City Methodist HospitalComment on above:Performed By: #### [id number], TSH3 wRFLX, LIPID #### [facility] [address] [place], [place] [address] [facility] Auto (RBC) [Mass/Vol]Ordered By: Duane Simons on 80-86-3391LJPP (RBC) [Mass/Vol]MCHC [Mass/volume] by Automated count32.0-35.0 [facility]on HospitalMCHC (RBC) [Mass/Vol]34.2 g/dL32.0-35.0 [facility] HospitalMCV Auto (RBC) [Entitic vol]Ordered By: Duane Simons on 79-36-4121TEJ (RBC) [Entitic vol]MCV [Entitic volume] by Automated wyhea79-877IivtbakshCleveland Clinic Avon HospitalMCV [Entitic volume] by Automated countOrdered By: Duane Simons on 14-63-4969RXW (RBC) [Entitic vol]86.1 nWVzpdzb14-686LvsumpvopCleveland Clinic Avon HospitalComment on above: Performed By: #### [id number], TSH3 wRFLX, LIPID #### [facility] [address] [place] [address] USAMonocyte distribution width [Entitic volume] in Blood by AutomatedOrdered By: Duane Simons on 11-71-4684Raimiyxd distribution width Auto (Bld) [Entitic vol]Monocyte distribution width [Entitic volume] in Blood by Automated0.00-20.00[facility] HospitalMonocyte distribution width Auto (Bld) [Entitic vol]18.05 %0.00-20.00[facility] Monocytes Auto (Bld) [#/Vol]Ordered By: Duane Simons on 80-02-7217Aersetgzj (Bld) [#/Vol]Automated blood monocyte count0.0-0.8[facility]on HospitalMonocytes [#/volume] in Blood by Automated countOrdered By: Duane Simons on 18-73-8366Ridqsumhd (Bld) [#/Vol]0.3 10*3/uLNormal0.0-0.8[facility]on HospitalComment on above:Performed By: #### [id number], TSH3 wRFLX, LIPID #### [facility] [address] [place] [address] USAMonocytes/100 WBC Auto (Bld)Ordered By: Duane Simons on 11-95-3444Cawwjdgsd/100 WBC (Bld)Automated monocyte %.[facility] HospitalMonocytes/100 leukocytes in Blood by Automated countOrdered By: Duane Simons on 00-75-7983Jdxsujjyj/100 WBC (Bld)4.7 %Normal.[facility] Avon HospitalComment on above:Performed By: #### [id number], TSH3 wRFLX, LIPID #### [facility] [address] [place] [address] USANeutrophils Auto (Bld) [#/Vol]Ordered By: Duane Simons on 33-39-0443Tneabfxtqcs (Bld) [#/Vol]Neutrophils [#/volume] in Blood by Automated count1.8-7.7FOhioHealth Grove City Methodist HospitalNeutrophils [#/volume] in Blood by Automated countOrdered By: Duane Simons on 11-06-2024 Neutrophils (Bld) [#/Vol]3.5 10*3/uLNormal1.8-7.7FOhioHealth Grove City Methodist HospitalComment on above:Performed By: #### [id number], TSH3 wRFLX, LIPID #### [facility] [address] [place] [address] USANeutrophils/100 WBC Auto (Bld)Ordered By: Duane Simons on 67-66-1662Eayumhzqawz/100 WBC (Bld)Automated neutrophil %.[facility]on HospitalNeutrophils/100 leukocytes in Blood by Automated count Ordered By: Duane Simons on 48-31-9601Wlchhathyft/100 WBC (Bld)58.6 %Normal .[facility]on HospitalComment on above:Performed By: #### [id number], TSH3 wRFLX, LIPID #### [address] [address] USANitrite Test strip Ql (U)Ordered By: Duane Simons on 87-85-9194Jajidkl Ql (U)Nitrite [Presence] in Urine by Test stripNegative [facility] Clinic [facility]on HospitalNitrite Ql (U)NegativeNegativeCleveland Clinic Avon HospitalNo Panel InformationOrdered By: Duane Simons on 29-00-1213Hwqlhsvcb GFR (CKD-EPI)> 60.0 mL/MinCleveland Clinic Avon Hospital Pharmacy Creatinine Clearance (Nsig084.89[facility] Nucleated erythrocytes [Presence] in Blood by Automated countOrdered By: Duane Simons on 84-57-0984Qqllgwwqr RBC Auto Ql (Bld)Nucleated erythrocytes [Presence] in Blood by Automated count0-0.5FOhioHealth Grove City Methodist Hospital Nucleated RBC Auto Ql (Bld)0.1 /100{WBC}0-0.5FOhioHealth Grove City Methodist Hospital Opiates [Presence] in Urine by Screen methodOrdered By: Duane Simons on 13-17-7320Skjascn Screen Ql (U)Opiates [Presence] in Urine by Screen method NegativeCleveland Clinic Avon HospitalOpiates Screen Ql (U)NegativeNegative [facility] HospitalPhencyclidine Screen Ql (U)Ordered By: Duane Simons on 32-95-6842Iwtnqdmhhurnv Ql (U)Phencyclidine [Presence] in Urine by Screen methodNegativeCleveland Clinic Avon HospitalPhencyclidine Ql (U)NegativeNegativeCleveland Clinic Avon HospitalPlatelet mean volume Auto (Bld) [Entitic vol]Ordered By: Duane Simons on 78-64-5066Xqoxpirj mean volume (Bld) [Entitic vol]Platelet mean volume [Entitic volume] in Blood by Automated count6.3-10.7FOhioHealth Grove City Methodist HospitalPlatelet mean volume [Entitic volume] in Blood by Automated countOrdered By: Duane Simons on 71-56-4993Euclvrun mean volume (Bld) [Entitic vol]7.8 fLNormal6.3-10.7FOhioHealth Grove City Methodist HospitalComment on above:Performed By: #### [id number], TSH3 wRFLX, LIPID #### [facility] [address] [place] [address] USAPlatelets Auto (Bld) [#/Vol]Ordered By: Duane Simons on 55-28-2622Cgqzrrciz (Bld) [#/Vol]Platelets [#/volume] in Blood by Automated rreta512-953DvbzaegpvCleveland Clinic Avon HospitalPlatelets [#/volume] in Blood by Automated countOrdered By: Duane Simons on 86-23-2677Lowpywdsc (Bld) [#/Vol]264 10*3/pDKriwvb847-256DygkukhiyCleveland Clinic Avon HospitalComment on above:Performed By: #### [id number], TSH3 wRFLX, LIPID #### [facility] [address] [place] [address] USAPotassium [Moles/volume] in Serum or PlasmaOrdered By: Duane Simons on 69-27-6090Romtvktbz [Moles/Vol]Potassium [Moles/volume] in Serum or Plasma3.5-5.1FOhioHealth Grove City Methodist HospitalPotassium [Moles/Vol]3.7 mmol/LNormal3.5-5.1FOhioHealth Grove City Methodist HospitalComment on above:Performed By: #### [id number], TSH3 wRFLX, LIPID #### [facility] [address] [place] [address] USAProtein Test strip (U) [Mass/Vol]Ordered By: Duane Simons on 42-53-0381Cgarcye (U) [Mass/Vol]Protein [Mass/volume] in Urine by Test stripNegativeCleveland Clinic Avon HospitalProtein (U) [Mass/Vol] NegativeNegativeCleveland Clinic Avon HospitalProtein [Mass/volume] in Serum or PlasmaOrdered By: Duane Simons on 69-77-0149Btkdkvl [Mass/Vol]Protein [Mass/volume] in Serum or Plasma6.4-8.9[facility] Clinic Avon HospitalProtein [Mass/Vol]7.2 g/dLNormal6.4-8.9[facility] HospitalComment on above:Performed By: #### [id number], TSH3 wRFLX, LIPID #### [facility] [address] [place] [address] USARBC Auto (Bld) [#/Vol]Ordered By: Duane Simons on 21-57-4318SOI (Bld) [#/Vol]Erythrocytes [#/volume] in Blood by Automated count 3.60-5.00K[facility]tering Health Prebleerum globulin measurement by calculation (mass/volume)Ordered By: Duane Simons on 39-79-2753Qlhzkuka (S) [Mass/Vol]2.7 g/dLNormalCleveland Clinic Avon HospitalComment on above: Performed By: #### [id number], TSH3 wRFLX, LIPID #### [facility] [address] [place] [address] USASerum or plasma albumin/globulin mass ratioOrdered By: Duane Simons on 16-58-8572Odsnyzn/Globulin [Mass ratio]Serum or plasma albumin/globulin mass ratioCleveland Clinic Avon HospitalAlbumin/Globulin [Mass ratio]1.7 {ratio}NormalCleveland Clinic Avon HospitalComment on above: Performed By: #### [id number], TSH3 wRFLX, LIPID #### [facility] [address] [place] [address] USASerum or plasma anion gap determinationOrdered By: Duane Simons on 10-60-6991Gdwkg gap [Moles/Vol]Serum or plasma anion gap determination6.0-15.0[facility]on HospitalAnion gap [Moles/Vol]9.6 mmol/LNormal6.0-15.0[facility] HospitalComment on above:Performed By: #### [id number], TSH3 wRFLX, LIPID #### [facility] [address] [place] [address] USASerum or plasma ethanol measurement (mass/volume)Ordered By: Duane Simons on 01-41-9675Tpcfygh [Mass/Vol]TNPCleveland Clinic Avon HospitalComment on above:Test not performedSerum or plasma total cholesterol/high density lipoprotein (HDL) cholesterol mass ratOrdered By: Kit Gutierrez on 69-85-6988Axxaydedtof.total/Cholesterol in HDL [Mass ratio]Serum or plasma total cholesterol/high density lipoprotein (HDL) cholesterol mass rat<5.0[facility] Cholesterol.total/Cholesterol in HDL [Mass ratio]3.4 {ratio}Normal<5.0[facility]on HospitalComment on above:Performed By: #### [id number], TSH3 wRFLX, LIPID #### [facility] [address] [place] [address] USASodium [Moles/volume] in Serum or PlasmaOrdered By: Duane Simons on 55-16-3605Qwggtl [Moles/Vol]Sodium [Moles/volume] in Serum or Wizrdf867-413RjbyshxcjKettering Health Prebleodium [Moles/Vol]139 mmol/L Lyexuk739-808WurqrgwmgCleveland Clinic Avon HospitalComment on above:Performed By: #### [id number], TSH3 wRFLX, LIPID #### [facility] [address] [place] [address] USASpecific gravity Test strip (U) [Rel density]Ordered By: Duane Simons on 06-98-3928Ndyhonui gravity (U) [Rel density]Specific gravity of Urine by Test strip1.001-1.030[facility] Specific gravity (U) [Rel density]1.0151.001-1.030[facility] HospitalThyroid Stim Hormone w/Rflxon 54-47-0053Rfboivd Stim Hormone w/Rflx0.79 u[iU]/mLNormal0.45-5.33[facility] Physician GroupComment on above:Performed By: #### CBC, [id number], T4F, ETOH, LIPID, CMP, TSH3 wRFLX #### [facility] [address] [place] [address] USAThyrotropin [Units/volume] in Serum or PlasmaOrdered By: Kit Gutierrez on 47-65-4588XMI QnThyrotropin [Units/volume] in Serum or Plasma0.45-5.33[facility] HospitalTSH Qn0.79 m[IU]/L0.45-5.33 [facility] HospitalTriglyceride [Mass/volume] in Serum or Plasma Ordered By: Kit Gutierrez on 38-76-8630Tahbckfmtmbp [Mass/Vol] Triglyceride [Mass/volume] in Serum or Plasma[address] [place], [place] [address]Comment on above:TRIG ATP III CLASSIFICATIONTRIG less than 150 mg/dL NormalTRIG 150-199 mg/dL Borderline highTRIG 200-500 mg/dL High TRIG greater than 500 mg/dL Very highStandard traceable to the Center for Disease Conrtrol and Prevention (CDC) test method.Triglyceride [Mass/Vol]44 mg/dL0C[facility] Clinic Avon HospitalComment on above:TRIG ATP III CLASSIFICATIONTRIG less than 150 mg/dL NormalTRIG 150-199 mg/dL Borderline highTRIG 200-500 mg/dL High TRIG greater than 500 mg/dL Very highStandard traceable to the Center for Disease Conrtrol and Prevention (CDC) test method.Urea nitrogen [Mass/volume] in Serum or PlasmaOrdered By: Duane Simons on 17-16-6173Lpgg nitrogen [Mass/Vol]Urea nitrogen [Mass/volume] in Serum or PlasmaLow-[facility] Clinic Avon HospitalUrea nitrogen [Mass/Vol]6 mg/dLLow[address] [place], [place] [address]Comment on above:Performed By: #### [id number], TSH3 wRFLX, LIPID #### [facility] [address] [place] [address] USAUrobilinogen Test strip (U) [Mass/Vol]Ordered By: Duane Simons on 49-66-2210Fqmqdsqfbliz (U) [Mass/Vol]Urobilinogen [Mass/volume] in Urine by Test stripNoPremier Health Miami Valley Hospital Urobilinogen (U) [Mass/Vol]Normal mg/dLNoPremier Health Miami Valley Hospital Vitamin D 25 Hydroxy Totalon 84-19-2141Apjiqtd D 25 Hydroxy Total7.8 ng/mLLow 30-100The [facility] Physician GroupComment on above:Result Comment: VITAMIN D STATUS 25([place])VITAMIN D RANGE (ng/mL) Deficient <20 Insufficient 20 to <30 Sufficient 30 to 100 Reference: Malou MF,Roly NC, Kassidy SHAH, et al. Evaluation,treatment, and prevention of vitamin D deficiency; an Endocrine Society clinical practice guideline. JCEM. 2010; 96(7):1911-30. PERFORMED BY: [address] [place] [address] PATHOLOGIST RESISTANCE WELDER ZULEIMA ZHANG M.D.Performed By: #### CBC, [id number], T4F, ETOH, LIPID, CMP, TSH3 wRFLX #### [facility] [address] [place] [address] USAVitamin D+Metabolites [Mass/volume] in Serum or Plasma Ordered By: Kit Gutierrez on 74-01-9529Bpgbwta D+Metabolites [Mass/Vol] Vitamin D+Metabolites [Mass/volume] in Serum or QsaruqWmv15-240Akdszofkn Regional Medical CenterComment on above:VITAMIN D STATUS 25(OH)VITAMIN D RANGE (ng/mL) Deficient <20 Insufficient 20 to <87Burpfaoknn76 to 100Reference: Roly Trevino, Kassidy SHAH, et al. Evaluation,treatment, and prevention of vitamin D deficiency; an Endocrine Society clinical practice guideline. JC. 2010; 96(7):191-.Vitamin D+Metabolites [Mass/Vol]7.8 ng/cAUze79-849 [facility] HospitalComment on above:VITAMIN D STATUS 25([place])VITAMIN D RANGE (ng/mL) Deficient <20 Insufficient 20 to <94Xezsdllcbm20 to 100Reference: Roly Trevino, Kassidy SHAH, et al. Evaluation,treatment, and prevention of vitamin D deficiency; an Endocrine Society clinical practice guideline. JCEM. 2010; 96(7):1911-.WBC Auto (Bld) [#/Vol]Ordered By: Duane Simons on 86-95-2053IGQ (Bld) [#/Vol] Leukocytes [#/volume] in Blood by Automated count3.8-11.6FOhioHealth Grove City Methodist HospitalpH Test strip (U)Ordered By: Duane Simons on 66-92-3430oY (U) pH of Urine by Test strip5.0-9.0[facility]on HospitalpH of Urine by Test stripOrdered By: Duane Simons on 81-42-2533rX (U)5.5 [pH]Normal5.0-9.0 [facility]on HospitalComment on above:Order Comment: Name Collection Type:: Clean-Voided MidstreamPerformed By: #### CBC, [id number], T4F, ETOH, LIPID, CMP, TSH3 wRFLX #### [facility] [address] [place] [address] USACBC AND AUTO DIFFon 83-77-2051MCCOBXGQ BASOPHIL0.0 X10E9/L Normal0.0-0.2Pro[facility] Medical Center Of ModestoComment on above:Performed By: #### CBCA, CMP #### [facility] ([id number]) [address] [place] [address]AXETOXHC NEUTROPHIL3.0 X10E9/LNormal1.5-6.6Cleveland ClinicComment on above:Performed By: #### CBCA, CMP #### [facility] ([id number]) [address] [place] [address] 08283Feclzgejv/100 WBC (Bld)0.4 %NormalCleveland Clinic Comment on above:Performed By: #### CBCA, CMP #### [facility] ([id number]) [address] [place] [address] 240[address]Wyeyrfjiskf (Bld) [#/Vol]0.1 10*3/uLNormal0.0-0.4C[facility] ClinicComment on above:Performed By: #### CBCA, CMP #### [facility] ([id number]) [address] [place] [address] 32754Woqweitkzys/100 WBC (Bld)1.0 %NormalCleveland Clinic Comment on above:Performed By: #### CBCA, CMP #### [facility] ([id number]) [address] [place] [address] 19055Qzahzdpsekt distribution width (RBC) [Ratio]15.6 %High11.5-15.0 Cleveland ClinicComment on above:Performed By: #### CBCA, CMP #### [facility] ([id number]) [address] [place] [address] 750[address]Qdpsagqgde (Bld) [Volume fraction]35.7 %Hgdbkq95-95HnjQfmwnhCleveland ClinicComment on above:Performed By: #### CBCA, CMP #### [facility] ([id number]) [address] [place] [address] 89773Cqfpppceyp (Bld) [Mass/Vol]12.4 g/jWHnrqax53.7-15.5PMercy Health Willard HospitalComment on above:Performed By: #### CBCA, CMP #### [facility] ([id number]) [address] [place] [address]Wlicucweyhg (Bld) [#/Vol]2.1 10*3/uLNormal1.0-3.5PMercy Health Willard HospitalComment on above:Performed By: #### CBCA, CMP #### [facility] ([id number]) [address] [place] [address] 04362Xlensvfvcfk/100 WBC (Bld)37.9 %NormalProTexas Health Harris Methodist Hospital [facility] Comment on above:Performed By: #### CBCA, CMP #### [facility] ([id number]) [address] [place] [address]GFH (RBC) [Entitic mass]29.4 pkQscgkc13-52FcvIfqrnnTexas Health Harris Methodist Hospital StephenvilleComment on above:Performed By: #### CBCA, CMP #### [facility] ([id number]) [address] [place] [address]32[address]NJKH (RBC) [Mass/Vol]34.6 g/nHRavbis31-03HtpXcuikfTexas Health Harris Methodist Hospital StephenvilleComment on above:Performed By: #### CBCA, CMP #### [facility] ([id number]) [address] [place] [address] 14090YMQ (RBC) [Entitic vol]85 gBUlczwc30-861FpiVicwto Fremont HospitalComment on above:Performed By: #### CBCA, CMP #### [facility] ([id number]) [address] [place] [address] 42010Mvkjjoion (Bld) [#/Vol]0.4 10*3/uLNormal0-0.9C[facility] ClinicComment on above:Performed By: #### CBCA, CMP #### [facility] ([id number]) [address] [place] [address] 32718Kumivesdu/100 WBC (Bld)7.5 %NormalCleveland Clinic Comment on above:Performed By: #### CBCA, CMP #### [facility] ([id number]) [address] [place] [address], [place] [address]Hkbvxnekgyo/100 WBC (Bld)53.2 %[facility] Comment on above:Performed By: #### CBCA, CMP #### [facility] ([id number]) [address] [place] [address] 97[address]Icejysly mean volume (Bld) [Entitic vol]8.0 fLNormal7-12 ProMedicMercy Medical CenterComment on above:Performed By: #### CBCA, CMP #### [facility] ([id number]) [address] [place] [address] 18688Yspebbkqe (Bld) [#/Vol]217 10*3/pBSpcneh116-972FukYhbuhtCleveland ClinicComment on above:Performed By: #### CBCA, CMP #### [facility] ([id number]) [address] [place] [address]39[address]HUT COUNT4.20 X10E12/LNormal3.80-5.20[facility] Comment on above:Performed By: #### CBCA, CMP #### [facility] ([id number]) [address] [place] [address] 810[address]HUK (Bld) [#/Vol]5.7 10*3/uLNormal4.0-11.0C[facility] ClinicComment on above:Performed By: #### CBCA, CMP #### [facility] ([id number]) [address] [place] [address] 16440QZCQXCZPPQHTU METABOLIC PANELon 75-82-2743Ikyicrh [Mass/Vol]4.6 g/dLNormal3.2-5.3PMercy Health Willard HospitalComment on above:Performed By: #### KIM, CMP #### [facility] ([id number]) [address] [place] [address], [place] [address]BKW [Catalytic activity/Vol]48 U/BGjqgqu36-899NmxNvvcogTexas Health Harris Methodist Hospital StephenvilleComment on above:Performed By: #### KIM, CMP #### [facility] ([id number]) [address] [place] [address], [place] [address]BGT [Catalytic activity/Vol]12 U/LNormal0-31PMercy Health Willard HospitalComment on above:Performed By: #### KIM, CMP #### [facility] ([id number]) [address] [place] [address], [place] [address]Jdmgq gap [Moles/Vol]8 mmol/LNormal5-15ProTexas Health Harris Methodist Hospital StephenvilleComment on above:Performed By: #### KIM, CMP #### [facility] ([id number]) [address] [place] [address], [place] [address]WVV [Catalytic activity/Vol]17 U/LNormal0-41ProTexas Health Harris Methodist Hospital StephenvilleComment on above:Performed By: #### KIM, CMP #### [facility] ([id number]) [address] [place] [address], [place] [address]Gcyklydam [Mass/Vol]0.3 mg/dLNormal0.3-1.2PMercy Health Willard HospitalComment on above:Performed By: #### CBCKatharine, CMP #### [facility] ([id number]) [address] [place] [address], [place] [address]Posobfu [Mass/Vol]9.5 mg/dLNormal8.5-10.5PMercy Health Willard HospitalComment on above:Performed By: #### CBCKatharine, CMP #### [facility] ([id number]) [address] [place] [address] 77[address]Ncyxkcxb [Moles/Vol]102 mmol/RRotkpw00-918CozQbabirCleveland ClinicComment on above:Performed By: #### KIM, CMP #### [facility] ([id number]) [address] [place] [address] 489[address]ML4 [Moles/Vol]26 mmol/KSznnmn07-09LfuTcbdzsMercy Health Willard Hospital Comment on above:Performed By: #### KIM, CMP #### [facility] ([id number]) [address] [place] [address] 532[address]Dyutveywzd [Mass/Vol]0.71 mg/dLNormal0.40-1.00C[facility] ClinicComment on above:Result Comment: METHOD TRACEABLE TO IDMS STANDARD Performed By: #### KIM, CMP #### [facility] ([id number]) [address] [place] [address] [place] [address]xXTJ (CKD-EPI) NON-RACE DEPENDENT>90Normal>59ProTexas Health Harris Methodist Hospital StephenvilleComment on above:Result Comment: Reported eGFR is based on the CKD-EPI 2020 equation that does not use a race coefficient.Performed By: #### KIM, CMP #### [facility] ([id number]) [address] [place] [address] 00882Jvpmcho [Mass/Vol]89 mg/lWJrjgms40-69VmjPhjfkvCleveland Clinic Comment on above:Performed By: #### KIM, CMP #### [facility] ([id number]) [address] [place] [address] 560[address]Tggjwuzjq [Moles/Vol]3.5 mmol/LNormal3.5-5.0C[facility] ClinicComment on above:Performed By: #### CBCKatharine, CMP #### [facility] ([id number]) [address] [place] [address] 00756Qbevqil [Mass/Vol]7.8 g/dLNormal6.0-8.0C[facility] ClinicComment on above:Performed By: #### CBCA, CMP #### [facility] ([id number]) [address] [place] [address] 759[address]Sjnqhs [Moles/Vol]136 mmol/BAavybc837-658AfsZprpzz Fremont HospitalComment on above:Performed By: #### CBCA, CMP #### [facility] ([id number]) [address] [place] [address] 15218Asey nitrogen [Mass/Vol]8 mg/dLNormal5-23ProTexas Health Harris Methodist Hospital StephenvilleComment on above:Performed By: #### CBCA, CMP #### [facility] ([id number]) [address] [place] [address] [id number] ABDOMEN AND PELVIS W CONTon [id number] ABDOMEN AND PELVIS W CONTCT ABDOMEN AND PELVIS W CONT CLINICAL HISTORY: [...] by Joel Blandon MD on 09/16/2024 9:31 PMNormalProTexas Health Harris Methodist Hospital StephenvilleURN MACROSCOPIC NURon [id number] NURNegativeNormalNEGCleveland ClinicComment on above:Performed By: #### NUM #### [facility] ([id number]) [address] [place] [address] [id number]/HGB NURTraceAbnormalNEGCleveland ClinicComment on above:Performed By: #### NUM #### [facility] ([id number]) [address] [place] [address] [id number] NURNegativeNormhiNEGCleveland ClinicComment on above:Performed By: #### NUM #### [facility] ([id number]) [address] [place] [address] [place] [id number] NURNegativeNormalNEGProTexas Health Harris Methodist Hospital StephenvilleComment on above:Performed By: #### NUM #### [facility] ([id number]) [address] [place] [address] [place] [address]NVVDAZRXY ESTERASE NURNegativeNormhiNEGCleveland ClinicComment on above:Performed By: #### NUM #### [facility] ([id number]) [address] [place] [id number] NURNegativeNormalNEGProTexas Health Harris Methodist Hospital StephenvilleComment on above:Performed By: #### NUM #### [facility] ([id number]) [address] [place] [address] [place] [address]PC NUR5.8Uqrcbz2.0-8.5ProMedica Doctors Medical Center Of ModestoComment on above:Performed By: #### NUM #### [facility] ([id number]) [address] [place] [address], [place] [address]GIWCIAE NURNegativeNormalNEGProTexas Health Harris Methodist Hospital StephenvilleComment on above:Performed By: #### NUM #### [facility] ([id number]) [address] [place] [address]NHUGVJKB GRAVITY NUR1.043Azxvbv8.003-1.035ProTexas Health Harris Methodist Hospital StephenvilleComment on above:Performed By: #### NUM #### [facility] ([id number]) [address] [place] [address], [facility], [place] [address]GOAXQXGDJUSM NUR0.2 eu/dLNormal<1.1PMercy Health Willard Hospital Comment on above:Performed By: #### NUM #### [facility] ([id number]) [address] [place] [address], [place] [address]Ejnl,Aerobe/Anaerobeon [id number],Aerobe/AnaerobeSpecimen Description .ABDOMEN SWAB Special Requests Site: Swab Direct Exam NO NEUTROPHILS SEEN NO BACTERIA SEEN Culture NORMAL SKIN EMILIA VEILLONELLA SPECIES RARE GROWTH Identification by MALDI-TOF Report Status FINAL 04/16/2024NoSt. Francis HospitalComment on above: Performed By: #### CP, LIP, CDP #### [facility] [address] [place] [address] Light Cleaner: Lakhwinder Tim, MDCulture, Anaerobic and Aerobicon 04-16-2024 Interpretation and review of laboratory resultsAbnormalSmyth [facility] Community Hospital Microorganism identified Cx Nom (Unsp spec)NORMAL SKIN FLORABon [facility] HospitalMicroorganism identified Cx Nom (Unsp spec)VEILLONELLA SPECIES RARE GROWTH Identification by MALDI-TOFAbnoHenrico Doctors' Hospital—Parham CampusMicroorganism or agent identified Nom (Unsp spec)NO NEUTROPHILS SEENBon [facility] Microorganism or agent identified Nom (Unsp spec)NO BACTERIA SEENBon [facility] HospitalService comment (Unsp spec) [Interp]Site: SwabBon [facility] HospitalSpecimen Description.ABDOMEN SWABBon SecWisconsin Heart Hospital– WauwatosaXR ABDOMEN (KUB) (SINGLE AP VIEW)on [id number] ABDOMEN (KUB) (SINGLE AP VIEW)EXAMINATION: ONE SUPINE XRAY VIEW(S) OF THE ABDOMEN [...] Signed by: Christian Ni MD 04/16/24 Final resultNormalMerJohnson Memorial HospitalXR Abdomen Single viewon 04-16-2024 Postoperative ileus. MHPN RIS CONSOLIDATEDEXAMINATION: ONE SUPINE XRAY VIEW(S) OF THE ABDOMEN [...] limits for age Other: None [facility] RIS CONSOLIDATEDMahesChristian lindsey MD - 04/16/2024 EXAMINATION: ONE SUPINE XRAY [...] for age Other: None IMPRESSION: Postoperative ileus. [facility] HospitalRadiology Study observation (narrative)[facility] HospitalXR Abdomen Single viewOrdered By: Christian Ni on [id number] [facility] Work Phone: CBC auto differentialon [id number] (Bld) [#/Vol][facility] HospitalBasophils/100 WBC (Bld)0 %0 - 2 %[facility] HospitalEosinophils (Bld) [#/Vol]0.33 10*3/uLSmyth County Community Hospital Eosinophils/100 WBC (Bld)8 %High1 - 4 %[facility] HospitalErythrocyte distribution width (RBC) [Ratio]13.0 %11.8 - 14.4 %[facility] Hematocrit (Bld) [Volume fraction]28.5 %Low36.3 - 47.1 %[facility] Hemoglobin (Bld) [Mass/Vol]9.3 g/dLLow11.9 - 15.1 g/dLBon [facility] Immature granulocytes (Bld) [#/Vol][facility] HospitalImmature granulocytes/100 WBC (Bld)0 %0[facility] HospitalInterpretation and review of laboratory resultsAbnormalSmyth County Community HospitalLymphocytes/100 WBC (Bld)45 %High24 - 43 %[facility] HospitalLymphocytes/100 WBC (Bld)1.87 %[facility] HospitalH (RBC) [Entitic mass]28.6 pg25.2 - 33.5 pgSentara Norfolk General HospitalHC (RBC) [Mass/Vol]32.6 g/dL28.4 - 34.8 g/dLBon [facility] HospitalV (RBC) [Entitic vol]87.7 fL82.6 - 102.9 fLSmyth County Community Hospital Monocytes/100 WBC (Bld)9 %3 - 12 %[facility] HealthMonocytes/100 WBC (Bld)0.39 %[facility] HospitalNeutrophils/100 WBC (Bld)38 %36 - 65 %[facility] HospitalNucleated RBC/100 WBC (Bld) [Ratio]0.0 %0.0 per 100 WBCSmyth County Community HospitalPlatelet mean volume (Bld) [Entitic vol]9.7 fL8.1 - 13.5 fL [facility] HospitalPlatelets (Bld) [#/Vol]204 10*3/uLSmyth County Community HospitalRBC (Bld) [#/Vol]3.25 10*6/uLLow3.95 - 5.11 m/uLSmyth County Community Hospital Segmented neutrophils/100 WBC (Bld)1.62 %[facility] HospitalWBC other (Bld) [#/Vol]4.2Bon [facility] HospitalCBC with Diffon [id number]. Basophil<0.19Iswnbl9.00-0.20MerMemorial Health System Marietta Memorial Hospital HospitalComment on above:Performed By: #### CDP #### [address] [place] [address] Light Cleaner: Ben Benavides.Imm.Granulocyte<0.73Mvkajt4.00-0.30[facility] HospitalComment on above:Performed By: #### CDP #### [address] [place] [id number] Light Cleaner: Ben Benavides.Neutrophil (Seg)1.62 k/uLNormal1.50-8.10[facility] HospitalComment on above:Performed By: #### CDP #### [address] [place] [id number] Light Cleaner: Lakhwinder Tim MDBasophils/100 WBC (Bld)0 %Normal0-2[facility] HospitalComment on above:Performed By: #### CDP #### [address] [place] [id number] Light Cleaner: Lakhwinder Tim MDEosinophils (Bld) [#/Vol]0.33 10*3/uLNormal 0.00-0.44[facility] HospitalComment on above:Performed By: #### CDP #### [address] [place] [address] Light Cleaner: Lakhwinder Tim MDEosinophils/100 WBC (Bld)8 %High1-4[facility] HospitalComment on above:Performed By: #### CDP #### [address] [place] [address] Light Cleaner: Lakhwinder Tim MDErythrocyte distribution width (RBC) [Ratio]13.0 % Yhegjk76.8-14.4[facility] HospitalComment on above:Performed By: #### CDP #### [address] [place], [place] [address] Light Cleaner: Lakhwinder Tim MDHematocrit (Bld) [Volume fraction]28.5 %Low 36.3-47.1MSelect [facility] HospitalComment on above:Performed By: #### CDP #### [address] [place], [place] [address] Light Cleaner: Lakhwinder Tim MDHemoglobin (Bld) [Mass/Vol]9.3 g/dLLow11.9-15.1 [facility] HospitalComment on above:Performed By: #### CDP #### [address] [place], [facility] Light Cleaner: Lakhwinder Tim MDImmature granulocytes/100 WBC (Bld)0 %Teiufh7Dmytd [facility]in HospitalComment on above:Performed By: #### CDP #### [address] [place] [id number] Light Cleaner: Lakhwinder Tim MDLymphocytes (Bld) [#/Vol]1.87 10*3/uLNormal 1.10-3.70[facility] HospitalComment on above:Performed By: #### CDP #### [address] [place] [address] Light Cleaner: Lakhwinder Tim MDLymphocytes/100 WBC (Bld)45 %Pngm33-80Jgcmt [facility]in HospitalComment on above:Performed By: #### CDP #### [address] [place] [address] Light Cleaner: GUERO BenavidesCH (RBC) [Entitic mass]28.6 xgDwfhgx38.2-33.5 [facility] HospitalComment on above:Performed By: #### CDP #### [address] [place], [place] [address]283 Light Cleaner: GUERO BenaivdesCHC (RBC) [Mass/Vol]32.6 g/fSQxesoo50.4-34.8[facility] HospitalComment on above:Performed By: #### CDP #### [address] [place], [place] 927[address]83 Light Cleaner: GUERO BenavidesCV (RBC) [Entitic vol]87.7 aSVspyym86.6-102.9 [facility] HospitalComment on above:Performed By: #### CDP #### [address] [place] [address] Light Cleaner: GUERO Benavidesonocytes (Bld) [#/Vol]0.39 10*3/uLNormal0.10-1.20 [facility] HospitalComment on above:Performed By: #### CDP #### [address] [place], [place] [id number] Light Cleaner: GUERO Benavidesonocytes/100 WBC (Bld)9 %Normal3-12[facility] HospitalComment on above:Performed By: #### CDP #### [facility] [address] [place] [address] [place] [address] Light Cleaner: Maria Elena Benavides (Seg)38 %Hawqha77-25Xhgtb [facility]in HospitalComment on above:Performed By: #### CDP #### [address] [place], [facility]83 Light Cleaner: GAYATRI Benavides Automated0.0 per 100 WBCNormal0.0[facility] HospitalComment on above:Performed By: #### CDP #### [address] [place], [place] [id number] Light Cleaner: Bandar eBnavides mean volume (Bld) [Entitic vol]9.7 fL Normal8.1-13.5[facility] HospitalComment on above:Performed By: #### CDP #### [address] [place] [address] Light Cleaner: Martina Benavides (Bld) [#/Vol]204 10*3/rULdaqnt586-837 [facility] HospitalComment on above:Performed By: #### CDP #### [address] [place] [address] Light Cleaner: MAU Benavides (Bld) [#/Vol]3.25 10*6/uLLow3.95-5.11[facility] HospitalComment on above:Performed By: #### CDP #### [address] [place], [place] 6862683 Light Cleaner: JACKIE Benavides (Bld) [#/Vol]4.2 10*3/uLNormal3.5-11.3[facility] HospitalComment on above:Performed By: #### CDP #### [address] [place], [place] 8233683 Light Cleaner: JUAREZ Benavidesomp Metabolic Pr/rfx MGon [id number] [Mass/Vol]3.2 g/dLLow3.5-5.2[facility] HospitalComment on above:Performed By: #### CDP #### [address] [place] [address] Light Cleaner: Lakhwinder Tim MDAlbumin/Glob Ratio1.2Gedrze6.0-2.5[facility] HospitalComment on above:Performed By: #### CDP #### [address] [place] [address] Light Cleaner: Sergio Benavideskaline Phos75 U/UZwmunc09-307Ajhmo [facility] HospitalComment on above:Performed By: #### CDP #### [address] [place] [address] Light Cleaner: Lakhwinder Tim MDALT [Catalytic activity/Vol]10 U/VZvnvbw54-04Ntncs [facility] HospitalComment on above:Performed By: #### CDP #### [address] [place] [address] Light Cleaner: Rocky Benavides gap [Moles/Vol]6 mmol/LLow9-16[facility] HospitalComment on above:Performed By: #### CDP #### [address] [place] [address] Light Cleaner: Lakhwinder Tim MDAST [Catalytic activity/Vol]10 U/UMyosgr81-66Eaqvx [facility] HospitalComment on above:Performed By: #### CDP #### [address] [place] [address] Light Cleaner: Lakhwinder Tim MDBilirubin [Mass/Vol]mg/dLNormal0.00-1.20Asht[facility]ula County Medical CenterComment on above:Performed By: #### CDP #### [facility] [address] [place] [address] [place] [address] Light Cleaner: Lakhwinder Tim MDBUN/CRE Calov31Htwypf5-56Fvltv [facility] Comment on above:Performed By: #### CDP #### [address] [place] [address] Light Cleaner: JUAREZ Benavidesalcium [Mass/Vol]8.6 mg/dLNormal8.6-10.4[facility] County Medical CenterComment on above:Performed By: #### CDP #### [address] [place] [address] Light Cleaner: JUAREZ Benavideshloride [Moles/Vol]104 mmol/IWiojna01-471YaanmAshtabula County Medical CenterComment on above:Performed By: #### CDP #### [address] [place] [address] Light Cleaner: JUAREZ BenavidesO2 [Moles/Vol]28 mmol/SFerhij87-98OrdghAshtabula County Medical CenterComment on above:Performed By: #### CDP #### [address] [place] [address] Light Cleaner: JUAREZ Benavidesreatinine [Mass/Vol]0.5 mg/dLNormal0.50-0.90[facility] County Medical CenterComment on above:Performed By: #### CDP #### [address] [place], [place] 6173483 Light Cleaner: Lakhwinder Tim MDGFR/1.73 sq M.predicted among non-blacks MDRD (S/P/Bld) [Vol rate/Area]mL/min/{1.73_m2}Normal>60[facility] HospitalComment on above:Result Comment: These results are not intended for [...] or following therapy that affects renal tubular secretion.Performed By: #### CDP #### [address] [place] [address] Light Cleaner: Lakhwinder Tim MDGlucose [Mass/Vol]89 mg/yRYcxxbn57-02Inxmp [facility] HospitalComment on above:Performed By: #### CDP #### [address] [place], [place] 9620983 Light Cleaner: PARUL Benavidesotassium [Moles/Vol]3.8 mmol/LNormal3.7-5.3MSelect Medical [facility] HospitalComment on above:Performed By: #### CDP #### [address] [place], [place] 7074383 Light Cleaner: Lakhwinder Tim MDProtein [Mass/Vol]6.2 g/dLLow6.6-8.7[facility] HospitalComment on above:Performed By: #### CDP #### [address] [place] [address] Light Cleaner: Lakhwinder Tim MDSodium [Moles/Vol]138 mmol/GPzppma065-520Zqgxv [facility] HospitalComment on above:Performed By: #### CDP #### [address] [place], [place] 8391783 Light Cleaner: Lakhwinder Tim MDUrea nitrogen [Mass/Vol]5 mg/dLLow6-20[facility] HospitalComment on above:Performed By: #### CDP #### [address] [place] [address] Light Cleaner: Lakhwinder Tim [facility] WOODWARDomprehensive Metabolic Panel w/ Reflex to MGon [id number] [Mass/Vol]3.2 g/dLLow3.5 - 5.2 g/dLBon [facility] [employer] Albumin/Globulin [Mass ratio]1.1 {ratio}1.0 - 2.5Bon [facility] [employer] HealthALP [Catalytic activity/Vol]75 U/L35 - 104 U/LBon Secours Highland District HospitalLoopFuse HealthALT [Catalytic activity/Vol]10 U/L10 - 35 U/LBon Secours Highland District HospitalMagenta MedicalAnion gap [Moles/Vol]6 mmol/LLow9 - 16 mmol/LBon SecWashington Rural Health CollaborativeLoopFuse HealthAST [Catalytic activity/Vol]10 U/L 10 - 35 U/LBon [facility] Fly[employer]JetBilirubin [Mass/Vol]mg/dL0.00 - 1.20 mg/dLBon [facility] [employer] HealthCalcium [Mass/Vol]8.6 mg/dL8.6 - 10.4 mg/dLBon [facility] [employer] HealthChloride [Moles/Vol]104 mmol/L98 - 107 mmol/LBon [facility] [employer] HealthCO2 [Moles/Vol]28 mmol/L20 - 31 mmol/LBon [facility] [employer]JetCreatinine [Mass/Vol]0.5 mg/dL0.50 - 0.90 mg/dLBon Secours [employer] HealthEst, Glom Filt Rate- PINFBon [facility] HospitalLoopFuse [facility] Va Medical CenterComment on above: These results are not intended [...] therapy that affects renal tubular secretion. Glucose [Mass/Vol]89 mg/dL74 - 99 mg/dLBon [facility] Community HospitalLotLinxInterpretation and review of laboratory resultsAbnormalBon [facility] [employer] HealthPotassium [Moles/Vol]3.8 mmol/L3.7 - 5.3 mmol/LBon [facility] HospitalThird Chicken HealthProtein [Mass/Vol] 6.2 g/dLLow6.6 - 8.7 g/dLBon Secours [employer] HealthSodium [Moles/Vol]138 mmol/L136 - 145 mmol/LBon [facility] HealthUrea nitrogen [Mass/Vol]5 mg/dLLow6 - 20 mg/dLBon Secours Highland District Hospitaly HealthUrea nitrogen/Creatinine [Mass ratio]10 mg/mg9 - 20 Bon [facility] SecHenry County HospitalCBC auto differentialon [id number] (Bld) [#/Vol][facility] HealthBasophils/100 WBC (Bld) 0 %0 - 2 %[facility] Hospitaly HealthEosinophils (Bld) [#/Vol]0.28 10*3/uLBon [facility] HealthEosinophils/100 WBC (Bld)6 %High1 - 4 %[facility] Secours [facility] BeachwoodErythrocyte distribution width (RBC) [Ratio]13.2 %11.8 - 14.4 %[facility] SecSav[facility] Medical Center HealthHematocrit (Bld) [Volume fraction]27.5 %Low36.3 - 47.1 %[facility] HospitalHemoglobin (Bld) [Mass/Vol]8.8 g/dLLow11.9 - 15.1 g/dLBon Secours [facility] BeachwoodImmature granulocytes (Bld) [#/Vol][facility] BeachwoodImmature granulocytes/100 WBC (Bld)0 %0Bon SecSav[facility] Center HealthInterpretation and review of laboratory resultsAbnormalBon SecWashington Rural Health Collaborativey HealthLymphocytes/100 WBC (Bld)35 %24 - 43 %[facility] SecHenry County HospitalLymphocytes/100 WBC (Bld)1.62 %[facility] HospitalH (RBC) [Entitic mass]28.2 pg25.2 - 33.5 pgBon SecGlenbeigh HospitalHC (RBC) [Mass/Vol]32.0 g/dL28.4 - 34.8 g/dLBon SecGlenbeigh HospitalV (RBC) [Entitic vol]88.1 fL82.6 - 102.9 fLBon SecSavoy Medical Center HealthMonocytes/100 WBC (Bld)10 %3 - 12 %Bon [facility]Sav[facility] Center HealthMonocytes/100 WBC (Bld)0.47 %Bon [facility] HospitalNeutrophils/100 WBC (Bld)49 %36 - 65 %[facility] HospitalNucleated RBC/100 WBC (Bld) [Ratio]0.0 %0.0 per 100 WBCSmyth County Community HospitalPlatelet mean volume (Bld) [Entitic vol]10.3 fL8.1 - 13.5 fLBon [facility] HospitalPlatelets (Bld) [#/Vol]183 10*3/uLBon [facility] HospitalRBC (Bld) [#/Vol]3.12 10*6/uLLow3.95 - 5.11 m/uLBon [facility] HospitalSegmented neutrophils/100 WBC (Bld)2.22 %[facility] HospitalWBC other (Bld) [#/Vol] 4.6Bon [facility] HospitalCBC with Diffon 04-14-2024 Abs. Basophil<0.91Ysizrz6.00-0.20[facility] HospitalComment on above:Performed By: #### VENTURA, LIP, CDP #### [address] [place] [id number] Light Cleaner: Ben Benavides.Imm.Granulocyte<0.81Ayzqxe6.00-0.30[facility] County Medical CenterComment on above:Performed By: #### CP, LIP, CDP #### [address] [place] [id number] Light Cleaner: Ben Benavides.Neutrophil (Seg)2.22 k/uLNormal1.50-8.10[facility] County Medical CenterComment on above:Performed By: #### CP, LIP, CDP #### [address] [place] [address] Light Cleaner: Lakhwinder Tim MDBasophils/100 WBC (Bld)0 %Normal0-2[facility] HospitalComment on above:Performed By: #### CP, LIP, CDP #### [address] [place] [address] Light Cleaner: Lakhwinder Tim MDEosinophils (Bld) [#/Vol]0.28 10*3/uLNormal 0.00-0.44[facility] HospitalComment on above:Performed By: #### CP, LIP, CDP #### [address] [place] [address] Light Cleaner: Lakhwinder Tim MDEosinophils/100 WBC (Bld)6 %High1-4[facility] HospitalComment on above:Performed By: #### CP, LIP, CDP #### [address] [place] [address] Light Cleaner: Lakhwinder Tim MDErythrocyte distribution width (RBC) [Ratio]13.2 % Mhaibq77.8-14.4[facility] HospitalComment on above:Performed By: #### VENTURA LIP, CDP #### [address] [place], [place] [address] Light Cleaner: Lakhwinder Tim MDHematocrit (Bld) [Volume fraction]27.5 %Low 36.3-47.1MSelect [facility] HospitalComment on above:Performed By: #### CP, LIP, CDP #### [address] [place] [address] Light Cleaner: Lakhwinder Tim MDHemoglobin (Bld) [Mass/Vol]8.8 g/dLLow11.9-15.1 [facility] HospitalComment on above:Performed By: #### CP, LIP, CDP #### [address] [place] [address] Light Cleaner: Lakhwinder Tim MDImmature granulocytes/100 WBC (Bld)0 %Xwcwul8Zegae [facility]in HospitalComment on above:Performed By: #### CP, LIP, CDP #### [address] [place] 8[address]83 Light Cleaner: Lakhwinder Tim MDLymphocytes (Bld) [#/Vol]1.62 10*3/uLNormal 1.10-3.70[facility] HospitalComment on above:Performed By: #### CP, LIP, CDP #### [address] [place], [place] [address]1683 Light Cleaner: Oniel Benavidesmphocytes/100 WBC (Bld)35 %Okpwom27-79Rtkpg [facility] HospitalComment on above:Performed By: #### CP, LIP, CDP #### [address] [place], [facility] Light Cleaner: GUERO BenavidesCH (RBC) [Entitic mass]28.2 aeBmaywd49.2-33.5 [facility] HospitalComment on above:Performed By: #### VENTURA, LIP, CDP #### [address] [place], [place] [address]45583 Light Cleaner: MILDRED BenavidesC (RBC) [Mass/Vol]32.0 g/jMTdlseu30.4-34.8[facility] HospitalComment on above:Performed By: #### CP, LIP, CDP #### [address] [place], [facility] Light Cleaner: GUERO BenavidesCV (RBC) [Entitic vol]88.1 rMDinpfq64.6-102.9 [facility] HospitalComment on above:Performed By: #### CP, LIP, CDP #### [address] [place] [address] Light Cleaner: GUERO Benavidesonocytes (Bld) [#/Vol]0.47 10*3/uLNormal0.10-1.20 [facility] HospitalComment on above:Performed By: #### CP, LIP, CDP #### [address] [place] [address] Light Cleaner: GUERO Benavidesonocytes/100 WBC (Bld)10 %Normal3-12[facility] Medical CenterComment on above:Performed By: #### CP, LIP, CDP #### [address] [place] [address] Light Cleaner: Luis Benavidesophil (Seg)49 %Cnypoz98-44Wguhg [facility] HospitalComment on above:Performed By: #### CP, LIP, CDP #### [address] [place] [address] Light Cleaner: Lakhwinder Tim MDNRBC Automated0.0 per 100 WBCNormal0.0[facility] HospitalComment on above:Performed By: #### CP, LIP, CDP #### [address] [place] [address] Light Cleaner: Bandar Benavides mean volume (Bld) [Entitic vol]10.3 fL Normal8.1-13.5[facility] Medical CenterComment on above:Performed By: #### CP, LIP, CDP #### [address] [place] [address] Light Cleaner: PARUL Benavideslatelets (Bld) [#/Vol]183 10*3/wQOpoiaz882-622 [facility] Medical CenterComment on above:Performed By: #### CP, LIP, CDP #### [address] [place], [place] 758[address]83 Light Cleaner: Lakhwinder Tim MDRBC (Bld) [#/Vol]3.12 10*6/uLLow3.95-5.11[facility] HospitalComment on above:Performed By: #### CP, LIP, CDP #### [address] [place] [address] Light Cleaner: JULIAN BenavidesBC (Bld) [#/Vol]4.6 10*3/uLNormal3.5-11.3[facility] HospitalComment on above:Performed By: #### CP, LIP, CDP #### [address] [place], [place] 5759483 Light Cleaner: JUAREZ Benavidesomp Metabolic Pr/rfx MGon 16-75-1860Mzqunuq [Mass/Vol]3.1 g/dLLow3.5-5.2[facility] HospitalComment on above:Performed By: #### CP, LIP, CDP #### [address] [place] [address] Light Cleaner: Lakhwinder Tim MDAlbumin/Glob Ratio1.1Tvdjmo7.0-2.5MerMemorial Health System [facility] Hospital HospitalComment on above:Performed By: #### CP, LIP, CDP #### [address] [place] [address] Light Cleaner: Shiraz Benavides Phos62 U/KIsxgrk01-197Ogqqq [facility] HospitalComment on above:Performed By: #### CP, LIP, CDP #### [address] [place] [address] Light Cleaner: Lakhwinder Tim MDALT [Catalytic activity/Vol]11 U/EFejgjh13-76Tfjrj [facility] HospitalComment on above:Performed By: #### CP, LIP, CDP #### [address] [place] [address] Light Cleaner: Rocky Benavides gap [Moles/Vol]8 mmol/LLow9-16MerMemorial Health System [facility] HospitalComment on above:Performed By: #### CP, LIP, CDP #### [address] [place] [address] Light Cleaner: Lakhwinder Tim MDAST [Catalytic activity/Vol]12 U/ADfmnrb78-85WbqbnAshtabula County Medical CenterComment on above:Performed By: #### CP, LIP, CDP #### [address] [place] [address] Light Cleaner: Lakhwinder Tim MDBilirubin [Mass/Vol]0.3 mg/dLNormal0.00-1.20[facility] Medical CenterComment on above:Performed By: #### CP, LIP, CDP #### [address] [place] [address] Light Cleaner: Lakhwinder Tim MDBUN/CRE Obhlu29Mpujtj5-47Eieum [facility] Comment on above:Performed By: #### VENTURA, LIP, CDP #### [address] [place] [address] Light Cleaner: JUAREZ Benavidesalcium [Mass/Vol]8.4 mg/dLLow8.6-10.4[facility] Medical CenterComment on above:Performed By: #### VENTURA, LIP, CDP #### [address] [place] [address] Light Cleaner: JUAREZ Benavideshloride [Moles/Vol]104 mmol/PLzdqyt39-535Frmdh [facility] HospitalComment on above:Performed By: #### VENTURA, LIP, CDP #### [address] [place] [address] Light Cleaner: Lakhwinder Tim MDCO2 [Moles/Vol]27 mmol/QKaqnqv09-61Faaar [facility] HospitalComment on above:Performed By: #### CP, LIP, CDP #### [address] [place] [address] Light Cleaner: JUAREZ Benavidesreatinine [Mass/Vol]0.4 mg/dLLow0.50-0.90Ashtabula County Medical CenterComment on above:Performed By: #### TOM WHITEHEAD, CDP #### [address] [place], [place] [id number] Light Cleaner: Lakhwinder Tim MDGFR/1.73 sq M.predicted among non-blacks MDRD (S/P/Bld) [Vol rate/Area]mL/min/{1.73_m2}Normal>60As[facility] Medical CenterComment on above:Result Comment: These results are not intended for [...] or following therapy that affects renal tubular secretion.Performed By: #### TOM WHITEHEAD, CDP #### [address] [place], [facility] Light Cleaner: Lakhwinder Tim MDGlucose [Mass/Vol]93 mg/hMErwkxb85-80Qyrss [facility]'S Medical CenterComment on above:Performed By: #### TOM WHITEHEAD, CDP #### [address] [place], [place] [id number] Light Cleaner: PARUL Benavidesotassium [Moles/Vol]3.4 mmol/LLow3.7-5.3MSelect Medical Specialty Hospital - Columbus SouthComment on above:Performed By: #### VENTURA LIP, CDP #### [address] [place], [place] [id number] Light Cleaner: Lakhwinder Tim MDProtein [Mass/Vol]5.9 g/dLLow6.6-8.7Ashtabula County Medical CenterComment on above:Performed By: #### VENTURA LIP, CDP #### [address] [place], [place] [id number] Light Cleaner: ADDISON Benavidesodium [Moles/Vol]139 mmol/ZJqudii821-348PdfbhAshtabula County Medical CenterComment on above:Performed By: #### TOM WHITEHEAD, CDP #### [facility] [address] [place] [address] Light Cleaner: Lakhwinder Tim MDUrea nitrogen [Mass/Vol]4 mg/dLLow6-20As[facility] County Medical CenterComment on above:Performed By: #### TOM WHITEHEAD, CDP #### [facility] [address] [place] [address] Light Cleaner: JUAREZ Benavidesomprehensive Metabolic Panel w/ Reflex to MGon [id number] [Mass/Vol]3.1 g/dLLow3.5 - 5.2 g/dLBon [facility] Albumin/Globulin [Mass ratio]1.1 {ratio}1.0 - 2.5[facility] HealthALP [Catalytic activity/Vol]62 U/L35 - 104 U/LBon [facility] HealthALT [Catalytic activity/Vol]11 U/L10 - 35 U/LBon [facility] BeachwoodAnion gap [Moles/Vol]8 mmol/LLow9 - 16 mmol/LBon [facility] HealthAST [Catalytic activity/Vol]12 U/L 10 - 35 U/LBon [facility] BeachwoodBilirubin [Mass/Vol]0.3 mg/dL0.00 - 1.20 mg/dLBon [facility] BeachwoodCalcium [Mass/Vol]8.4 mg/dLLow8.6 - 10.4 mg/dLBon [facility]ours [facility] BeachwoodChloride [Moles/Vol]104 mmol/L98 - 107 mmol/LBon [facility] HealthCO2 [Moles/Vol]27 mmol/L20 - 31 mmol/LBon [facility] Health Creatinine [Mass/Vol]0.4 mg/dLLow0.50 - 0.90 mg/dLBon [facility] HealthEst, Glom Filt Rate- PINFBon [facility] HospitalComment on above: These results are not intended [...] therapy that affects renal tubular secretion. Glucose [Mass/Vol]93 mg/dL74 - 99 mg/dLBon [facility] HospitalInterpretation and review of laboratory resultsAbnormalBon [facility] HospitalPotassium [Moles/Vol]3.4 mmol/LLow3.7 - 5.3 mmol/LBon [facility] HospitalProtein [Mass/Vol]5.9 g/dLLow6.6 - 8.7 g/dLBon [facility] HospitalSodium [Moles/Vol]139 mmol/L136 - 145 mmol/LBon [facility] HospitalUrea nitrogen [Mass/Vol]4 mg/dL Low6 - 20 mg/dLBon [facility] HospitalUrea nitrogen/Creatinine [Mass ratio]10 mg/mg9 - 20Bon [facility] HospitalMagnesiumon [id number] [Mass/Vol]1.7 mg/dL1.6 - 2.6 mg/dLBon [facility] Hospital And SchoolMagnesium [Mass/Vol]1.7 mg/dLNormal1.6-2.6[facility]S Medical CenterComment on above:Performed By: #### CP, LIP, CDP #### [facility] [address] [place] [address] [place] [address] Light Cleaner: REBA Benavides ABDOMEN (KUB) (SINGLE AP VIEW)on [id number] ABDOMEN (KUB) (SINGLE AP VIEW)EXAMINATION: ONE SUPINE XRAY VIEW(S) OF THE ABDOMEN [...] by: Asim Olsen IV, MD 04/14/24 Final resultNormalMerJohnson Memorial HospitalXR Abdomen Single viewon 04-14-2024 Nonspecific, nonobstructed bowel gas pattern. [facility] CONSOLIDATEDEXAMINATION: ONE SUPINE XRAY VIEW(S) OF THE ABDOMEN 04/14/2024 5:23 pm COMPARISON: 04/13/2024 radiograph HISTORY: ORDERING SYSTEM PROVIDED HISTORY: Abd pain TECHNOLOGIST PROVIDED HISTORY: Abd pain FINDINGS: Limited visualization of the abdomen in field of view of this portable study. Nonspecific, nonobstructed bowel gas pattern. No abnormal soft tissue mass or calcification. No significant skeletal finding. [facility] Asim Purcell IV, MD - 04/14/2024 EXAMINATION: ONE SUPINE [...] finding. IMPRESSION: Nonspecific, nonobstructed bowel gas pattern. [facility] HospitalRadiology Study observation (narrative)[facility] HospitalXR Abdomen Single viewOrdered By: Asim Olsen on [id number] [facility] Work Phone: cbc auto differentialon [id number] (Bld) [#/Vol][facility] HospitalBasophils/100 WBC (Bld)0 %0 - 2 %[facility] HospitalEosinophils (Bld) [#/Vol]0.10 10*3/uLSmyth County Community Hospital Eosinophils/100 WBC (Bld)2 %1 - 4 %[facility] HospitalErythrocyte distribution width (RBC) [Ratio]13.4 %11.8 - 14.4 %[facility] Hematocrit (Bld) [Volume fraction]29.0 %Low36.3 - 47.1 %[facility] Hemoglobin (Bld) [Mass/Vol]9.3 g/dLLow11.9 - 15.1 g/dLBon [facility] Immature granulocytes (Bld) [#/Vol]Bon [facility] HospitalImmature granulocytes/100 WBC (Bld)0 %0[facility] HospitalInterpretation and review of laboratory resultsAbnormalBon [facility] HospitalLymphocytes/100 WBC (Bld)25 %24 - 43 %[facility] HospitalLymphocytes/100 WBC (Bld)1.44 %[facility] HospitalH (RBC) [Entitic mass]28.2 pg25.2 - 33.5 pgSentara Norfolk General HospitalHC (RBC) [Mass/Vol]32.1 g/dL28.4 - 34.8 g/dLBon [facility] HospitalV (RBC) [Entitic vol]87.9 fL82.6 - 102.9 fLSmyth County Community HospitalMonocytes/100 WBC (Bld)11 %3 - 12 %[facility] HospitalMonocytes/100 WBC (Bld)0.64 %[facility] HospitalNeutrophils/100 WBC (Bld)62 %36 - 65 %[facility] HospitalNucleated RBC/100 WBC (Bld) [Ratio]0.0 %0.0 per 100 WBCSmyth County Community HospitalPlatelet mean volume (Bld) [Entitic vol]10.5 fL8.1 - 13.5 fLSmyth County Community HospitalPlatelets (Bld) [#/Vol]159 10*3/uLBon [facility] HospitalRBC (Bld) [#/Vol]3.30 10*6/uLLow3.95 - 5.11 m/uLBon [facility] HospitalSegmented neutrophils/100 WBC (Bld)3.49 %[facility] HospitalWBC other (Bld) [#/Vol] 5.7Bon [facility] HospitalCBC with Diffon 04-13-2024 Abs. Basophil<0.24Lryqvg9.00-0.20Ashtabula County Medical CenterComment on above:Performed By: #### CP, LIP, CDP #### [address] [place] [address] Light Cleaner: MDAbs. MakaylaImm.Granulocyte<0.68Pxdvvv4.00-0.30MerMemorial [facility] System [facility] HospitalComment on above:Performed By: #### CP, LIP, CDP #### [address] [place] [address] Light Cleaner: Ben Benavides.Neutrophil (Seg)3.49 k/uLNormal1.50-8.10MerMemorial Health System [facility] HospitalComment on above:Performed By: #### CP, LIP, CDP #### [address] [place] [address] Light Cleaner: Lakhwinder Tim MDBasophils/100 WBC (Bld)0 %Normal0-2[facility] HospitalComment on above:Performed By: #### CP, LIP, CDP #### [address] [place] [address] Light Cleaner: Lakhwinder Tim MDEosinophils (Bld) [#/Vol]0.10 10*3/uLNormal 0.00-0.44MerMemorial Health System [facility] HospitalComment on above:Performed By: #### CP, LIP, CDP #### [address] [place] [address] Light Cleaner: ISH Benavidesosinophils/100 WBC (Bld)2 %Normal1-4MerMemorial Health System [facility] HospitalComment on above:Performed By: #### CP, LIP, CDP #### [address] [place] [address] Light Cleaner: Lakhwinder Tim MDErythrocyte distribution width (RBC) [Ratio]13.4 % Qixuxe14.8-14.4MerMemorial Health System [facility] HospitalComment on above:Performed By: #### CP, LIP, CDP #### [address] [place] [facility] Light Cleaner: Lakhwinder Tim MDHematocrit (Bld) [Volume fraction]29.0 %Low 36.3-47.1MSelect [facility] HospitalComment on above:Performed By: #### CP, LIP, CDP #### [address] [place] [address] Light Cleaner: Lakhwinder Tim MDHemoglobin (Bld) [Mass/Vol]9.3 g/dLLow11.9-15.1 [facility] HospitalComment on above:Performed By: #### CP, LIP, CDP #### [address] [place] [address] Light Cleaner: Lakhwinder Tim MDImmature granulocytes/100 WBC (Bld)0 %Wxysvp8Zijxi [facility] HospitalComment on above:Performed By: #### VENTURA, LIP, CDP #### [address] [place] [address] Light Cleaner: Lakhwinder Tim MDLymphocytes (Bld) [#/Vol]1.44 10*3/uLNormal 1.10-3.70[facility] HospitalComment on above:Performed By: #### CP, LIP, CDP #### [address] [place], [place] [address] Light Cleaner: Lakhwinder Tim MDLymphocytes/100 WBC (Bld)25 %Oscpsb27-98Trufm [facility] HospitalComment on above:Performed By: #### CP, LIP, CDP #### [address] [place] [address] Light Cleaner: GUERO BenavidesCH (RBC) [Entitic mass]28.2 diAedtlh44.2-33.5 [facility] HospitalComment on above:Performed By: #### VENTURA, LIP, CDP #### [address] [place] [address] Light Cleaner: GUERO BenavidesCHC (RBC) [Mass/Vol]32.1 g/iUQfnfeb32.4-34.8[facility] HospitalComment on above:Performed By: #### CP, LIP, CDP #### [address] [place] [address] Light Cleaner: GUERO BenavidesCV (RBC) [Entitic vol]87.9 fIPkirqf98.6-102.9 [facility] County Medical CenterComment on above:Performed By: #### CP, LIP, CDP #### [address] [place], [facility]25 [address] Light Cleaner: GUERO Benavidesonocytes (Bld) [#/Vol]0.64 10*3/uLNormal0.10-1.20 [facility] HospitalComment on above:Performed By: #### CP, LIP, CDP #### [address] [place], [facility]83 Light Cleaner: GUERO Benavidesonocytes/100 WBC (Bld)11 %Normal3-12[facility] HospitalComment on above:Performed By: #### CP, LIP, CDP #### [address] [place], [facility]83 Light Cleaner: Duran Benavidesutrophil (Seg)62 %Jxgymp28-29Gayxh [facility] HospitalComment on above:Performed By: #### CP, LIP, CDP #### [address] [place], [facility]83 Light Cleaner: Lakhwinder Tim MDNRBC Automated0.0 per 100 WBCNormal0.0[facility] HospitalComment on above:Performed By: #### CP, LIP, CDP #### [address] [place], [facility]10 Light Cleaner: Bandar Benavides mean volume (Bld) [Entitic vol]10.5 fL Normal8.1-13.5[facility] HospitalComment on above:Performed By: #### CP, LIP, CDP #### [address] [place], [facility]83 Light Cleaner: Maritna Benavides (Bld) [#/Vol]159 10*3/pQRsfccs945-747 [facility] HospitalComment on above:Performed By: #### CP, LIP, CDP #### [address] [place], [place] [address] Light Cleaner: CHICA BenavidesBC (Bld) [#/Vol]3.30 10*6/uLLow3.95-5.11[facility] HospitalComment on above:Performed By: #### CP, LIP, CDP #### [address] [place], [facility]83 Light Cleaner: JULIAN BenavidesBC (Bld) [#/Vol]5.7 10*3/uLNormal3.5-11.3[facility] HospitalComment on above:Performed By: #### CP, LIP, CDP #### [address] [place], [place] [address] Light Cleaner: JUAREZ Benavidesomp Metabolic Pr/rfx MGon [id number] [Mass/Vol]3.2 g/dLLow3.5-5.2[facility] HospitalComment on above:Performed By: #### CP, LIP, CDP #### [address] [place] [address] Light Cleaner: Lakhwinder Tim MDAlbumin/Glob Ratio1.0Wmzkeg1.0-2.5[facility] HospitalComment on above:Performed By: #### CP, LIP, CDP #### [address] [place] [address] Light Cleaner: Shiraz Benavides Phos46 U/ZJspgfx47-631LqunaAshtabula County Medical CenterComment on above:Performed By: #### CP, LIP, CDP #### [address] [place] [address] Light Cleaner: Lakhwinder Tim MDALT [Catalytic activity/Vol]9 U/BGso89-44FypvdAshtabula County Medical CenterComment on above:Performed By: #### VENTURA, LIP, CDP #### [address] [place] [address] Light Cleaner: Lakhwinder Tim MDAnion gap [Moles/Vol]9 mmol/LNormal9-16[facility] County Medical CenterComment on above:Performed By: #### VENTURA LIP, CDP #### [address] [place], [facility]83 Light Cleaner: Lakhwinder Tim MDAST [Catalytic activity/Vol]11 U/BFjypal44-60KmbmuAshtabula County Medical CenterComment on above:Performed By: #### VENTURA, LIP, CDP #### [address] [place] [address] Light Cleaner: Lakhwinder Tim MDBilirubin [Mass/Vol]0.4 mg/dLNormal0.00-1.20[facility] CenterComment on above:Performed By: #### VENTURA, LIP, CDP #### [address] [place] [address] Light Cleaner: Lakhwinder Tim MDBUN/CRE Lfaqz47Hxynis8-19Rvrqi [facility] Comment on above:Performed By: #### CP, LIP, CDP #### [address] [place], [place] 152[address]83 Light Cleaner: Lakhwinder Sturtz, MDCalcium [Mass/Vol]8.4 mg/dLLow8.6-10.4[facility] County Medical CenterComment on above:Performed By: #### VENTURA LIP, CDP #### [address] [place], [place] [address]83 Light Cleaner: JUAREZ Benavideshloride [Moles/Vol]104 mmol/RXpzxvo63-756Hbioj [facility] HospitalComment on above:Performed By: #### CP, LIP, CDP #### [address] [place], [place] 8[address]83 Light Cleaner: Lakhwinder Tim MDCO2 [Moles/Vol]26 mmol/CStgnqs85-75ZlgikAshtabula County Medical CenterComment on above:Performed By: #### CP, LIP, CDP #### [address] [place], [facility]83 Light Cleaner: JUAREZ Benavidesreatinine [Mass/Vol]0.4 mg/dLLow0.50-0.90As[facility] Medical CenterComment on above:Performed By: #### VENTURA LIP, CDP #### [address] [place] [address] Light Cleaner: Lakhwinder Tim MDGFR/1.73 sq M.predicted among non-blacks MDRD (S/P/Bld) [Vol rate/Area]mL/min/{1.73_m2}Normal>60[facility] County Medical CenterComment on above:Result Comment: These results are not intended for [...] or following therapy that affects renal tubular secretion.Performed By: #### CP, LIP, CDP #### [address] [place] [address] Light Cleaner: Lakhwinder Tim MDGlucose [Mass/Vol]95 mg/yYQmexij82-99Mbahu [facility] HospitalComment on above:Performed By: #### VENTURA LIP, CDP #### [address] [place], [place] 6498483 Light Cleaner: Lakhwinder Tim MDPotassium [Moles/Vol]3.3 mmol/LLow3.7-5.3[facility] HospitalComment on above:Performed By: #### TOM WHITEHEAD, CDP #### [address] [place], [place] [address]283 Light Cleaner: Lakhwinder Tim MDProtein [Mass/Vol]5.9 g/dLLow6.6-8.7[facility] County Medical CenterComment on above:Performed By: #### TOM WHITEHEAD, CDP #### [address] [place], [place] [address]83 Light Cleaner: ADDISON Benavidesodium [Moles/Vol]139 mmol/AQvwzrt567-570Mpduc [facility] HospitalComment on above:Performed By: #### TOM WHITEHEAD, CDP #### [address] [place], [place] 6049383 Light Cleaner: Lakhwinder Tim MDUrea nitrogen [Mass/Vol]6 mg/dLNormal6-20[facility] CenterComment on above:Performed By: #### TOM WHITEHEAD, CDP #### [address] [place] [address] Light Cleaner: JUAREZ Benavidesomprehensive Metabolic Panel w/ Reflex to MGon [id number] [Mass/Vol]3.2 g/dLLow3.5 - 5.2 g/dLBon [facility] Albumin/Globulin [Mass ratio]1.2 {ratio}1.0 - 2.5Bon [facility] HospitalALP [Catalytic activity/Vol]46 U/L35 - 104 U/LBon [facility] Mercy HealthALT [Catalytic activity/Vol]9 U/LLow10 - 35 U/LBon Secours [facility] Hospitaly HealthAnion gap [Moles/Vol]9 mmol/L9 - 16 mmol/LBon Secours [facility] Hospitaly HealthAST [Catalytic activity/Vol]11 U/L10 - 35 U/LBon Secours [facility] Hospitaly HealthBilirubin [Mass/Vol]0.4 mg/dL0.00 - 1.20 mg/dL [facility]y HealthCalcium [Mass/Vol]8.4 mg/dLLow8.6 - 10.4 mg/dLBon Secours [facility] Hospitaly HealthChloride [Moles/Vol]104 mmol/L98 - 107 mmol/LBon Secours [facility] Hospitaly HealthCO2 [Moles/Vol]26 mmol/L20 - 31 mmol/LBon [facility] Health Creatinine [Mass/Vol]0.4 mg/dLLow0.50 - 0.90 mg/dLBon Sec[facility] HealthEst, Glom Filt Rate- PINFBon [facility] HospitalComment on above: These results are not intended [...] therapy that affects renal tubular secretion. Glucose [Mass/Vol]95 mg/dL74 - 99 mg/dLBon [facility] HealthInterpretation and review of laboratory resultsAbnormalBon [facility]ours [facility] Hospitaly HealthPotassium [Moles/Vol]3.3 mmol/LLow3.7 - 5.3 mmol/LBon [facility]Sav[facility] HealthProtein [Mass/Vol]5.9 g/dLLow6.6 - 8.7 g/dLBon Secours [facility] Hospitaly HealthSodium [Moles/Vol]139 mmol/L136 - 145 mmol/LBon SecWashington [facility] Collaborativey HealthUrea nitrogen [Mass/Vol]6 mg/dL6 - 20 mg/dLBon Secours [facility] Hospitaly HealthUrea nitrogen/Creatinine [Mass ratio]15 mg/mg9 - 20[facility] Hospitaly HealthBon Secours [facility] Hospitaly HealthMagnesiumon 10-26-2024 Magnesium [Mass/Vol]1.6 mg/dL1.6 - 2.6 mg/dLBon [facility] HospitalBon [facility] HospitalMagnesium [Mass/Vol]1.6 mg/dLNormal1.6-2.6[facility] Comment on above:Performed By: #### VENTURA, TOM, TOMAS #### [facility] [address] [place] [address] Light Cleaner: REBA Benavides ABDOMEN (KUB) (SINGLE AP VIEW)on [id number] ABDOMEN (KUB) (SINGLE AP VIEW)EXAMINATION: ONE SUPINE XRAY VIEW(S) OF THE ABDOMEN 04/13/2024 7:21 am COMPARISON: Acoustical Installer film of a CT abdomen of 10 [...] Signed by: Maeve Price MD 04/13/24 Final resultNormalMercy Connecticut Children'S Medical CenterXR Abdomen Single viewon . Nonobstructive bowel gas pattern. 2. Mildly increased colonic gas likely related to minimal ileus. [facility] CONSOLIDATEDEXAMINATION: ONE SUPINE XRAY VIEW(S) OF THE ABDOMEN 04/13/2024 7:21 am COMPARISON: Acoustical Installer film of a CT abdomen of 10 April 2024 HISTORY: ORDERING SYSTEM PROVIDED HISTORY: Abd pain TECHNOLOGIST PROVIDED HISTORY: Abd pain FINDINGS: Midline skin clips are noted, new since prior study. The bowel gas pattern is nonobstructive. No free air is noted. Mildly increased colonic gas is noted likely related to minimal ileus. Lung bases are clear. [facility] Maeve Ward MD - 04/13/2024 EXAMINATION: ONE SUPINE XRAY VIEW(S) OF THE ABDOMEN 04/13/2024 7:21 am COMPARISON: Acoustical Installer film of a CT abdomen of 10 [...] colonic gas likely related to minimal ileus. [facility] HospitalRadiology Study observation (narrative)[facility] HospitalXR Abdomen Single viewOrdered By: Maeve Price on [id number] [facility] Adisn Work Phone: cbc auto differentialon [id number] (Bld) [#/Vol][facility] HospitalBasophils/100 WBC (Bld)0 %0 - 2 %[facility] HospitalEosinophils (Bld) [#/Vol][facility] HospitalEosinophils/100 WBC (Bld)0 %Low1 - 4 %[facility] HospitalErythrocyte distribution width (RBC) [Ratio]13.4 %11.8 - 14.4 %[facility] HospitalHematocrit (Bld) [Volume fraction]28.0 %Low36.3 - 47.1 %[facility] HospitalHemoglobin (Bld) [Mass/Vol]8.9 g/dLLow11.9 - 15.1 g/dLBon [facility] HospitalImmature granulocytes (Bld) [#/Vol][facility] Hospitalmature granulocytes/100 WBC (Bld)0 %0[facility] HospitalInterpretation and review of laboratory results AbnormalBon [facility] HospitalLymphocytes/100 WBC (Bld)33 %24 - 43 %[facility] HospitalLymphocytes/100 WBC (Bld)2.08 %[facility] HospitalH (RBC) [Entitic mass]28.1 pg25.2 - 33.5 pgBon [facility] HospitalHC (RBC) [Mass/Vol]31.8 g/dL28.4 - 34.8 g/dLBon [facility] HospitalV (RBC) [Entitic vol]88.3 fL82.6 - 102.9 fLSmyth County Community HospitalMonocytes/100 WBC (Bld)9 %3 - 12 %[facility] HospitalMonocytes/100 WBC (Bld)0.55 %[facility] HospitalNeutrophils/100 WBC (Bld)58 %36 - 65 %[facility] HospitalNucleated RBC/100 WBC (Bld) [Ratio]0.0 %0.0 per 100 WBCSmyth County Community HospitalPlatelet mean volume (Bld) [Entitic vol]10.7 fL8.1 - 13.5 fLSmyth County Community Hospital Platelets (Bld) [#/Vol]139 10*3/uLBon [facility] HospitalRBC (Bld) [#/Vol]3.17 10*6/uLLow3.95 - 5.11 m/uLSmyth County Community HospitalSegmented neutrophils/100 WBC (Bld)3.71 %[facility] HospitalWBC other (Bld) [#/Vol]6.4Bon SecWisconsin [facility] Hospital– WauwatosaCBC with Diffon [id number]. Basophil<0.03Normal 0.00-0.20[facility] HospitalComment on above:Performed By: #### CDP #### [facility] [address] [place] [address] Dr. [place] [id number] Light Cleaner: Ben Benavides. Eosinophil<0.87Aacjoc5.00-0.44[facility] HospitalComment on above:Performed By: #### CDP #### [facility] [address] [place] [address] Dr. [place], [facility] Light Cleaner: Ben Benavides.Imm.Granulocyte<0.17Rmxgsp7.00-0.30[facility] HospitalComment on above:Performed By: #### CDP #### [facility] [address] [place] [address] Dr. [place] [id number] Light Cleaner: Ben Benavides.Neutrophil (Seg)3.71 k/uLNormal1.50-8.10[facility] HospitalComment on above:Performed By: #### CDP #### [address] [place], [facility]83 Light Cleaner: Lakhwinder Tim MDBasophils/100 WBC (Bld)0 %Normal0-2[facility] HospitalComment on above:Performed By: #### CDP #### [address] [place], [facility]83 Light Cleaner: Lakhwinder Tim MDEosinophils/100 WBC (Bld)0 %Low1-4[facility] HospitalComment on above:Performed By: #### CDP #### [address] [place] [id number] Light Cleaner: Lakhwinder Tim MDErythrocyte distribution width (RBC) [Ratio]13.4 % Dtjnmk26.8-14.4[facility] HospitalComment on above:Performed By: #### CDP #### [address] [place], [facility] Light Cleaner: Lakhwinder Tim MDHematocrit (Bld) [Volume fraction]28.0 %Low 36.3-47.1MSelect [facility] HospitalComment on above:Performed By: #### CDP #### [address] [place], [place] [address] Light Cleaner: Lakhwinder Tim MDHemoglobin (Bld) [Mass/Vol]8.9 g/dLLow11.9-15.1 [facility] HospitalComment on above:Performed By: #### CDP #### [address] [place] [address] Light Cleaner: Lakhwinder Tim MDImmature granulocytes/100 WBC (Bld)0 %Knjyqx7Jozmb [facility] HospitalComment on above:Performed By: #### CDP #### [address] [place], [place] [id number] Light Cleaner: Oniel Benavidesmphocytpete (Bld) [#/Vol]2.08 10*3/uLNormal 1.10-3.70[facility] HospitalComment on above:Performed By: #### CDP #### [address] [place], [place] [id number] Light Cleaner: Oniel Benavidesmphocytes/100 WBC (Bld)33 %Lyismq60-90Yuxbj [facility] HospitalComment on above:Performed By: #### CDP #### [address] [place], [place] [id number] Light Cleaner: GUERO BenavidesCH (RBC) [Entitic mass]28.1 jfUwawbs82.2-33.5 [facility] HospitalComment on above:Performed By: #### CDP #### [address] [place], [place] [id number] Light Cleaner: MILDRED BenavidesC (RBC) [Mass/Vol]31.8 g/nMCzrjgc55.4-34.8[facility] HospitalComment on above:Performed By: #### CDP #### [address] [place], [place] [id number] Light Cleaner: GUERO BenavidesCV (RBC) [Entitic vol]88.3 hXUqtmlr52.6-102.9 [facility] HospitalComment on above:Performed By: #### CDP #### [address] [place], [place] [id number] Light Cleaner: GUERO Benavidesonocytes (Bld) [#/Vol]0.55 10*3/uLNormal0.10-1.20 [facility] HospitalComment on above:Performed By: #### CDP #### [address] [place] [address] Light Cleaner: GUERO Benavidesonocytes/100 WBC (Bld)9 %Normal3-12[facility] HospitalComment on above:Performed By: #### CDP #### [address] [place] [address] Light Cleaner: Lakhwinder Tim MDNeutrophil (Seg)58 %Qcxkaj08-58Yhkme [facility] HospitalComment on above:Performed By: #### CDP #### [facility] [address] [place] [address] [place] [address] Light Cleaner: Lakhwinder Tim MDNRBC Automated0.0 per 100 WBCNormal0.0[facility] HospitalComment on above:Performed By: #### CDP #### [address] [place], [place] [id number] Light Cleaner: Dayana Benavidestekayleigh mean volume (Bld) [Entitic vol]10.7 fL Normal8.1-13.5[facility] HospitalComment on above:Performed By: #### CDP #### [address] [place] [address] Light Cleaner: PARUL Benavideslatelets (Bld) [#/Vol]139 10*3/nLRtdnnc994-889 [facility] HospitalComment on above:Performed By: #### CDP #### [facility] [address] [place] [address] [place] [address] Light Cleaner: Lakhwinder Tim MDRBC (Bld) [#/Vol]3.17 10*6/uLLow3.95-5.11[facility] HospitalComment on above:Performed By: #### CDP #### [address] [place] [address] Light Cleaner: JULIAN BenavidesBC (Bld) [#/Vol]6.4 10*3/uLNormal3.5-11.3[facility] HospitalComment on above:Performed By: #### CDP #### [facility] [address] [place] [address] Dr[place], [place] [id number] Light Cleaner: Cass Benavides Metabolic Pr/rfx MGon 62-68-3050Ptxaprk [Mass/Vol]3.1 g/dLLow3.5-5.2[facility] HospitalComment on above:Performed By: #### CDP #### [address] [place], [place] [id number] Light Cleaner: Lakhwinder Tim MDAlbumin/Glob Ratio1.4Ampwfh8.0-2.5MerMem[facility] HospitalComment on above:Performed By: #### CDP #### [address] [place], [place] [id number] Light Cleaner: Shiraz Benavides Phos41 U/HZhvmjo42-951Dmwlr [facility] HospitalComment on above:Performed By: #### CDP #### [address] [place], [place] [id number] Light Cleaner: Lakhwinder Tim MDALT [Catalytic activity/Vol]11 U/XVwpoiq69-15Nlsxm [facility] HospitalComment on above:Performed By: #### CDP #### [facility] [address] [place] [address] [place] [address] Light Cleaner: Lakhwinder Tim MDAnion gap [Moles/Vol]9 mmol/LNormal9-16[facility] HospitalComment on above:Performed By: #### CDP #### [address] [place], [place] [id number] Light Cleaner: Lakhwinder Tim MDAST [Catalytic activity/Vol]9 U/MOsm38-44Qslei [facility] HospitalComment on above:Performed By: #### CDP #### [address] [place] [address] Light Cleaner: Lakhwinder Tim MDBilirubin [Mass/Vol]0.3 mg/dLNormal0.00-1.20[facility] Medical CenterComment on above:Performed By: #### CDP #### [address] [place] [address] Light Cleaner: Lakhwinder Tim MDBUN/CRE Ycjsi87Kpmz5-68HouitAshtabula County Medical Center Comment on above:Performed By: #### CDP #### [address] [place] [address] Light Cleaner: JUAREZ eBnavidesalcium [Mass/Vol]8.2 mg/dLLow8.6-10.4[facility] County Medical CenterComment on above:Performed By: #### CDP #### [address] [place] [address] Light Cleaner: JUAREZ Benavideshloride [Moles/Vol]106 mmol/ATpnrup61-482WgagrAshtabula County Medical CenterComment on above:Performed By: #### CDP #### [address] [place] [address] Light Cleaner: Lakhwinder Tim MDCO2 [Moles/Vol]24 mmol/ZRomkyj41-70YkpmmAshtabula County Medical CenterComment on above:Performed By: #### CDP #### [address] [place] [address] Light Cleaner: JUAREZ Benavidesreatinine [Mass/Vol]0.5 mg/dLNormal0.50-0.90[facility] County Medical CenterComment on above:Performed By: #### CDP #### [address] [place], [place] [id number] Light Cleaner: Lakhwinder Tim MDGFR/1.73 sq M.predicted among non-blacks MDRD (S/P/Bld) [Vol rate/Area]mL/min/{1.73_m2}Normal>60[facility] HospitalComment on above:Result Comment: These results are not intended for [...] or following therapy that affects renal tubular secretion.Performed By: #### CDP #### [address] [place] [address] Light Cleaner: Lakhwinder Tim MDGlucose [Mass/Vol]83 mg/dILxpfng62-81Shehu [facility]'S Medical CenterComment on above:Performed By: #### CDP #### [address] [place] [id number] Light Cleaner: PARUL Benavidesotassium [Moles/Vol]3.3 mmol/LLow3.7-5.3Mparkwood hospitaly [facility] HospitalComment on above:Performed By: #### CDP #### [address] [place], [facility] Light Cleaner: Lakhwinder Tim MDProtein [Mass/Vol]5.8 g/dLLow6.6-8.7As[facility] County Medical CenterComment on above:Performed By: #### CDP #### [address] [place], [facility] Light Cleaner: Lakhwinder Tim MDSodium [Moles/Vol]139 mmol/YAhundx426-940Zouwl [facility] HospitalComment on above:Performed By: #### CDP #### [address] [place], [facility] Light Cleaner: Lakhwinder Tim MDUrea nitrogen [Mass/Vol]12 mg/dLNormal6-20[facility] HospitalComment on above:Performed By: #### CDP #### [facility] [address] [place] [address] Light Cleaner: Lakhwinder Tim [facility] WOODWARDomprehensive Metabolic Panel w/ Reflex to MGon 59-64-8772Lbmruxo [Mass/Vol]3.1 g/dLLow3.5 - 5.2 g/dLBon [facility] Albumin/Globulin [Mass ratio]1.2 {ratio}1.0 - 2.5Bon [facility] HospitalALP [Catalytic activity/Vol]41 U/L35 - 104 U/LBon [place] [facility] HospitalALT [Catalytic activity/Vol]11 U/L10 - 35 U/LBon [facility] HospitalAnion gap [Moles/Vol]9 mmol/L9 - 16 mmol/LBon [place] [facility] HospitalAST [Catalytic activity/Vol]9 U/LLow 10 - 35 U/LBon [facility] HospitalLoopFuse [facility] Medical CenterBilirubin [Mass/Vol]0.3 mg/dL0.00 - 1.20 mg/dLBon [facility] HospitalLoopFuse [facility] Medical CenterCalcium [Mass/Vol]8.2 mg/dLLow8.6 - 10.4 mg/dLBon [place] [facility] HospitalChloride [Moles/Vol]106 mmol/L98 - 107 mmol/LBon [facility] HospitalCO2 [Moles/Vol]24 mmol/L20 - 31 mmol/LBon [facility] Creatinine [Mass/Vol]0.5 mg/dL0.50 - 0.90 mg/dLBon [facility] HospitalMagenta MedicalEst, Glom Filt Rate- PINFBon [place] [facility] HospitalComment on above: These results are not intended [...] therapy that affects renal tubular secretion. Glucose [Mass/Vol]83 mg/dL74 - 99 mg/dLBon [facility] HospitalMagenta MedicalInterpretation and review of laboratory resultsAbnormalBon [facility] HospitalLoopFuse [facility] Medical CenterPotassium [Moles/Vol]3.3 mmol/LLow3.7 - 5.3 mmol/LBon [place] [facility] HospitalProtein [Mass/Vol]5.8 g/dLLow6.6 - 8.7 g/dLBon [place] [facility] HospitalSodium [Moles/Vol]139 mmol/L136 - 145 mmol/LBon [place] [facility] HospitalUrea nitrogen [Mass/Vol]12 mg/dL6 - 20 mg/dLBon [place] [facility] HospitalUrea nitrogen/Creatinine [Mass ratio]24 mg/mg High9 - 20[facility] Medical CenterEKG Rhythm Stripon 71-40-8157FEWAMNATIONWIDE CHILDREN'S HOSPITAL LABSmyth County Community HospitalMagnesiumon 33-78-9223Lbcxnheaq [Mass/Vol]1.7 mg/dL1.6 - 2.6 mg/dLBon [facility] Hospital And SchoolMagnesium [Mass/Vol]1.7 mg/dLNormal1.6-2.6Mparkwood hospitaly [facility]'S Medical CenterComment on above:Performed By: #### CDP #### [address] [place] [address] Light Cleaner: ADDISON BenavidesURGICAL PATHOLOGY REPORTon [id number] Pathology ReportPath Number: [id number] -- Diagnosis -- A. APPENDIX, APPENDECTOMY: Unremarkable appendix with minimal serosal adhesions. Sara Genao M.D. Electronically Signed [facility]/04/12/2024 Clinical Information Pre-Op Diagnosis: PERITONEAL CAVITY FREE [...] lumen of the distal tip lined by lizaam, fibrotic mucosa. Within the lumen is brown fecal material. No lesions or areas of hyperemia are identified. No perforations or tears are identified. Totally embedded 4c with the distal tip and margin in 1. silvano Saucedo/sandra2:04/11/2024 Microscopic Description Microscopic examination performed. Processing Lab: [address] [address] Interpretation Performed at [address] [address] SURGICAL PATHOLOGY CONSULTATION Patient Name: BARBRA CLAROS [facility] Rec: [id number] [facility] [employer] [facility] ANATOMIC PATHOLOGY [address] [place] [phone] bon [facility] HospitalCBC auto differentialon [id number] (Bld) [#/Vol]0.00 10*3/uLBon [place] [facility] HospitalBasophils/100 WBC (Bld)0 %0 - 2 %Bon [place] [facility] HospitalEosinophils (Bld) [#/Vol]0.00 10*3/uLBon [place] [facility] HospitalEosinophils/100 WBC (Bld)0 %Low1 - 4 %[facility] HospitalErythrocyte distribution width (RBC) [Ratio]13.7 %11.8 - 14.4 %[facility] HospitalHematocrit (Bld) [Volume fraction]34.4 %Low36.3 - 47.1 %[facility] HospitalHemoglobin (Bld) [Mass/Vol]11.1 g/dLLow11.9 - 15.1 g/dLBon [facility] HospitalImmature granulocytes (Bld) [#/Vol]0.00 10*3/uL [facility] HospitalImmature granulocytes/100 WBC (Bld)0 %0Bon [place] [facility] HospitalInterpretation and review of laboratory resultsAbnormalBon [place] [facility] HospitalLymphocytes/100 WBC (Bld)8 %Low24 - 43 %[facility] Lymphocytes/100 WBC (Bld)0.75 %LowBon [facility] [place] [facility] HospitalH (RBC) [Entitic mass]28.2 pg25.2 - 33.5 pgBon [facility] [place] [facility] HospitalHC (RBC) [Mass/Vol]32.3 g/dL 28.4 - 34.8 g/dLBon Secours Mercy HealthMCV (RBC) [Entitic vol]87.3 fL82.6 - 102.9 fLSmyth County Community HospitalMonocytes/100 WBC (Bld)1 %Low3 - 12 %Bon [place] [facility] HospitalMonocytes/100 WBC (Bld)0.09 %LowBon [place] [facility] HospitalMorphology [place] (Bld) [Interp]Platelet scan shows Normal PlateletsBon [facility] Neutrophils/100 WBC (Bld)91 %High36 - 65 %Bon [facility] HospitalNucleated RBC/100 WBC (Bld) [Ratio]0.0 %0.0 per 100 WBCBon [place] [facility] HospitalPlatelet mean volume (Bld) [Entitic vol]10.8 fL8.1 - 13.5 fLSmyth County Community Hospital Platelets (Bld) [#/Vol]170 10*3/uLBon [place] [facility] HospitalRBC (Bld) [#/Vol]3.94 10*6/uLLow3.95 - 5.11 m/uLSmyth County Community HospitalSegmented neutrophils/100 WBC (Bld)8.56 %HighBon [place] [facility] HospitalWBC other (Bld) [#/Vol]9.4Bon [facility] HospitalCBC with Diffon 63-09-4131Ivy. Basophil0.00 k/uLNormal0.0-0.2[facility] HospitalComment on above:Performed By: #### TOM WHITEHEAD, TOMAS #### [address] [place] [address] Light Cleaner: Ben Benavides.Imm.Granulocyte0.00 k/uLNormal0.00-0.30[facility] HospitalComment on above:Performed By: #### TOM WHITEHEAD, TOMAS #### [address] [place] [address] Light Cleaner: Ben Benavides.Neutrophil (Seg)8.56 k/uLHigh1.50-8.10[facility] County Medical CenterComment on above:Performed By: #### TOM WHITEHEAD, CDP #### [address] [place] [address] Light Cleaner: Lakhwinder Tim MDBasophils/100 WBC (Bld)0 %Normal0-2[facility] HospitalComment on above:Performed By: #### CP, LIP, CDP #### [address] [place], [facility]83 Light Cleaner: Lakhwinder Tim MDEosinophils (Bld) [#/Vol]0.00 10*3/uLNormal 0.00-0.44[facility] HospitalComment on above:Performed By: #### CP, LIP, CDP #### [address] [place] [address] Light Cleaner: ISH Benavidesosinophils/100 WBC (Bld)0 %Low1-4[facility] HospitalComment on above:Performed By: #### CP, LIP, CDP #### [address] [place], [facility]83 Light Cleaner: Rito Benavidesmature granulocytes/100 WBC (Bld)0 %Eykqyk9Vzbzw [facility] HospitalComment on above:Performed By: #### CP, LIP, CDP #### [address] [place], [facility] Light Cleaner: Oniel Benavidesmphocytes (Bld) [#/Vol]0.75 10*3/uLLow1.10-3.70 [facility] HospitalComment on above:Performed By: #### CP, LIP, CDP #### [address] [place], [place] [id number] Light Cleaner: Oniel Benavidesmphocytes/100 WBC (Bld)8 %Lup88-93Znxtq [facility] HospitalComment on above:Performed By: #### CP, LIP, CDP #### [address] [place] [address] Light Cleaner: GUERO Benavidesonocytes (Bld) [#/Vol]0.09 10*3/uLLow0.10-1.20 [facility] Medical CenterComment on above:Performed By: #### CP, LIP, CDP #### [address] [place] [address] Light Cleaner: GUERO Benavidesonocytes/100 WBC (Bld)1 %Low3-12[facility] Medical CenterComment on above:Performed By: #### VENTURA, LIP, CDP #### [address] [place], [place] [address] Light Cleaner: GUERO Benavidesorphology Clinton (d) [Interp]Platelet scan shows Normal PlateletsNormalAshtabula County Medical CenterComment on above:Performed By: #### VENTURA, LIP, CDP #### [address] [place], [facility] Light Cleaner: Lakhwinder Tim MDNeutrophil (Seg)91 %Bmxh43-26RjabfAshtabula County Medical Center Comment on above:Performed By: #### CP, LIP, CDP #### [address] [place] [address] Light Cleaner: Lakhwinder Tim MDErythrocyte distribution width (RBC) [Ratio]13.7 % Lehvte49.8-14.4[facility] Medical CenterComment on above:Performed By: #### CP, LIP, CDP #### [address] [place], [place] 3404183 Light Cleaner: Lakhwinder Tim MDHematocrit (Bld) [Volume fraction]34.4 %Low 36.3-47.1[facility] HospitalComment on above:Performed By: #### CP, LIP, CDP #### [address] [place], [facility] Light Cleaner: Lakhwinder Tim MDHemoglobin (Bld) [Mass/Vol]11.1 g/dLLow11.9-15.1 [facility] Medical CenterComment on above:Performed By: #### CP, LIP, CDP #### [address] [place], [place] [address] Light Cleaner: GUERO BenavidesCH (RBC) [Entitic mass]28.2 qgXaylnd45.2-33.5 [facility] HospitalComment on above:Performed By: #### CP, LIP, CDP #### [address] [place] [address] Light Cleaner: MILDRED BenavidesC (RBC) [Mass/Vol]32.3 g/rTAwdjon83.4-34.8[facility] Medical CenterComment on above:Performed By: #### CP, LIP, CDP #### [address] [place], [facility] Light Cleaner: GUERO BenavidesCV (RBC) [Entitic vol]87.3 kEAphpoz68.6-102.9 [facility] Medical CenterComment on above:Performed By: #### CP, LIP, CDP #### [address] [place], [place] [address] Light Cleaner: Lakhwinder Tim MDNRBC Automated0.0 per 100 WBCNormal0.0[facility] Medical CenterComment on above:Performed By: #### CP, LIP, CDP #### [address] [place], [facility]83 Light Cleaner: Dayana Benavidestelet mean volume (Bld) [Entitic vol]10.8 fL Normal8.1-13.5[facility] Medical CenterComment on above:Performed By: #### CP, LIP, CDP #### [address] [place], [place] 5400983 Light Cleaner: Martina Benavides ([facility]) [#/Vol]170 10*3/yEZiilnf120-136 [facility] HospitalComment on above:Performed By: #### CP, LIP, CDP #### [address] [place], [place] 046[address]83 Light Cleaner: MAU Benavides ([facility]) [#/Vol]3.94 10*6/uLLow3.95-5.11[facility] Centercy [facility] HospitalComment on above:Performed By: #### VENTURA, LIP, CDP #### [address] [place], [place] [id number] Light Cleaner: JACKIE Benavides ([facility]) [#/Vol]9.4 10*3/uLNormal3.5-11.3Mparkwood hospitaly [facility] HospitalComment on above:Performed By: #### VETNURA, LIP, CDP #### [address] [place] [address] Light Cleaner: JUAREZ Benavidesomp Metabolic Pr/rfx MGon 63-65-1190Yufieab [Mass/Vol]3.6 g/dLNormal3.5-5.2[facility] HospitalComment on above:Performed By: #### VENTURA, LIP, CDP #### [address] [place], [place] 7764583 Light Cleaner: Lakhwinder Tim MDAlbumin/Glob Ratio1.2Bwgqmw9.0-2.5[facility] HospitalComment on above:Performed By: #### VENTURA, LIP, CDP #### [address] [place], [place] 8[address]3 Light Cleaner: Sergio Benavideskaline Phos49 U/CVvlgjd09-648Kfpvp [facility] HospitalComment on above:Performed By: #### CP, LIP, CDP #### [address] [place] [address] Light Cleaner: Lakhwinder Tim MDALT [Catalytic activity/Vol]13 U/OQkwvnf53-27HvmhaAshtabula County Medical CenterComment on above:Performed By: #### CP, LIP, CDP #### [address] [place] [address] Light Cleaner: Lakhwinder Tim MDAnion gap [Moles/Vol]9 mmol/LNormal9-16[facility] HospitalComment on above:Performed By: #### VENTURA, LIP, CDP #### [address] [place] [address] Light Cleaner: Lakhwinder Tim MDAST [Catalytic activity/Vol]13 U/XYzkbis34-91DovbxAshtabula County Medical CenterComment on above:Performed By: #### VENTURA, LIP, CDP #### [address] [place] [address] Light Cleaner: Lakhwinder Tim MDBilirubin [Mass/Vol]0.7 mg/dLNormal0.00-1.20[facility] Medical CenterComment on above:Performed By: #### CP, LIP, CDP #### [address] [place] [address] Light Cleaner: Lakhwinder Tim MDBUN/CRE Mzkzx12Lunjzp8-82Lsinw [facility] Comment on above:Performed By: #### CP, LIP, CDP #### [address] [place] [address] Light Cleaner: JUAREZ Benavidesalcium [Mass/Vol]8.4 mg/dLLow8.6-10.4[facility] Medical CenterComment on above:Performed By: #### CP, LIP, CDP #### [address] [place] [address] Light Cleaner: JUAREZ Benavideshloride [Moles/Vol]105 mmol/SJsgahw34-684ZgtmyAshtabula County Medical CenterComment on above:Performed By: #### VENTURA LIP, CDP #### [address] [place], [place] 4699583 Light Cleaner: JUAREZ BenavidesO2 [Moles/Vol]23 mmol/WQdsmma10-83IjiakAshtabula County Medical CenterComment on above:Performed By: #### VENTURA LIP, CDP #### [facility] [address] [place], [place] 1383083 Light Cleaner: JUAREZ Benavidesreatinine [Mass/Vol]0.5 mg/dLNormal0.50-0.90[facility] Medical CenterComment on above:Performed By: #### VENTURA LIP, CDP #### [address] [place], [place] 1394183 Light Cleaner: Lakhwinder Tim MDGFR/1.73 sq M.predicted among non-blacks MDRD (S/P/Bld) [Vol rate/Area]mL/min/{1.73_m2}Normal>60[facility] Medical CenterComment on above:Result Comment: These results are not intended for [...] or following therapy that affects renal tubular secretion.Performed By: #### VENTURA, LIP, CDP #### [address] [place] [address] Light Cleaner: Lakhwinder Tim MDGlucose [Mass/Vol]136 mg/iSXenv08-51WlvzhSelect Medical Specialty Hospital - Columbus SouthComment on above:Performed By: #### VENTURA, LIP, CDP #### [address] [place], [place] 5875183 Light Cleaner: Lakhwinder Tim MDPotassium [Moles/Vol]4.0 mmol/LNormal3.7-5.3[facility] HospitalComment on above:Performed By: #### CP, LIP, CDP #### [facility] [address] [place] [address] Light Cleaner: Lakhwinder Tim MDProtein [Mass/Vol]6.6 g/dLNormal6.6-8.7[facility] Medical CenterComment on above:Performed By: #### CP, LIP, CDP #### [address] [place] [address] Light Cleaner: Lakhwinder Tim MDSodium [Moles/Vol]137 mmol/NKwiywz404-739XxsggAshtabula County Medical CenterComment on above:Performed By: #### VENTURA LIP, CDP #### [address] [place], [place] [id number] Light Cleaner: Lakhwinder Tim MDUrea nitrogen [Mass/Vol]9 mg/dLNormal6-20[facility] Medical CenterComment on above:Performed By: #### VENTURA LIP, CDP #### [address] [place] [address] Light Cleaner: JUAREZ Benavidesomprehensive Metabolic Panel w/ Reflex to MGon 94-50-8379Tqboqqq [Mass/Vol]3.6 g/dL3.5 - 5.2 g/dLBon [facility] Albumin/Globulin [Mass ratio]1.2 {ratio}1.0 - 2.5Bon [facility] HospitalALP [Catalytic activity/Vol]49 U/L35 - 104 U/LBon [facility] HospitalALT [Catalytic activity/Vol]13 U/L10 - 35 U/LBon [facility] HospitalAnion gap [Moles/Vol]9 mmol/L9 - 16 mmol/LBon [facility] HospitalAST [Catalytic activity/Vol]13 U/L10 - 35 U/LBon [facility] HospitalBilirubin [Mass/Vol]0.7 mg/dL0.00 - 1.20 mg/dL Bon [facility] HospitalCalcium [Mass/Vol]8.4 mg/dLLow8.6 - 10.4 mg/dLBon [facility] HospitalChloride [Moles/Vol]105 mmol/L98 - 107 mmol/LBon [facility] HospitalCO2 [Moles/Vol]23 mmol/L20 - 31 mmol/LBon [facility] Creatinine [Mass/Vol]0.5 mg/dL0.50 - 0.90 mg/dLBon [facility] HospitalEst, Glom Filt Rate- PINFBon [facility] HospitalComment on above: These results are not intended [...] therapy that affects renal tubular secretion. Glucose [Mass/Vol]136 mg/gGNxew22 - 99 mg/dLBon [facility] Interpretation and review of laboratory resultsAbnormalBon [facility] Potassium [Moles/Vol]4.0 mmol/L3.7 - 5.3 mmol/LBon [facility] HospitalProtein [Mass/Vol]6.6 g/dL6.6 - 8.7 g/dLBon [facility] HospitalSodium [Moles/Vol]137 mmol/L136 - 145 mmol/LBon [facility] HospitalUrea nitrogen [Mass/Vol]9 mg/dL6 - 20 mg/dLBon [facility] HospitalUrea nitrogen/Creatinine [Mass ratio]18 mg/mg9 - 20Bon [facility] HospitalEKG 12 LeadOrdered By: Haley Hicks on 12-64-1709Wsftjg Cwzr55TIZYsc [facility] Work Phone: p Kwph84hfpjsnqLswSmyth County Community Hospital Work Phone: p-R Enctufdh940 [facility] Work Phone: q-T Itjbpumd562 msBon [employer] Work Phone: QRS Oynlibiw48 [employer] Work Phone: QTc Calculation (Bazett)464 [facility] [employer] Work Phone: R Vewp96befewroXpn [employer] Phone: [phone] [id number] [employer] Phone: Ventricular Fkpo16DVQTsz [employer] Phone: Bon [employer] Work Phone: EKG 12 Leadon 04-11-2024 Poor data quality, interpretation may be adversely affected Normal sinus rhythm Incomplete right bundle branch block Nonspecific T wave abnormality Prolonged QT Abnormal ECG ECG not diagnostic for Acute Coronary Syndrome; consider clinical findings When compared with ECG of 15-AUG-2023 19:40, Poor data quality in current ECG precludes serial comparison Confirmed by Haley Hicks MD ([id number]) on 04/11/2024 8:01:06 [facility] Haley Hicks MD - 04/11/2024 [...] Hicks MD ([id number]) on 04/11/2024 8:01:06 AM [facility]rTHE [facility] Rhythm Stripon [id number] HospitalLotLinxSurgical Pathology Reporton 04-11-2024 Surgical Pathology Report(NOTE) Path Number: [id number] -- Diagnosis -- A. APPENDIX, APPENDECTOMY: Unremarkable appendix with minimal serosal adhesions. Sara Genao M.D. Electronically Signed Out kmg2/04/12/2024 Clinical Information Pre-Op Diagnosis: PERITONEAL CAVITY FREE AIR Operative Findings: APPENDIX Operation Performed: LAPAROTOMY EXPLORATORY, APPENDECTOMY, VAGINAL CUFF DEHISCENCE REPAIR Source of Specimen A: APPENDIX Gross Description [...] Microscopic Description Microscopic examination performed. Processing Lab: [address] [address] Interpretation Performed at [address] [address] SURGICAL PATHOLOGY CONSULTATION Patient Name: ABRBRA CLAROS [facility] Rec: [id number] [facility] ANATOMIC PATHOLOGY [address] [place] [address]. [place], [place] [id number] [facility]Ch[facility]othe [facility] HospitalTYPE AND SCREENon 15-30-2400CZI and Rh group Nom (Bld)Blood group O Rh(D) positiveSmyth County Community HospitalArm Band [id number] [facility] Hospitalood Bank Sample Expiration 04/13/2024,2359Bon [place] [facility] HospitalBlood group antibodies identified Nom NegativeMountain View Regional Medical CenterType + Screenon 28-57-5862Suuh + ScreenSample Expiration 04/13/2024,2359 Arm Band Number [id number] ABO/Rh(D) O POSITIVE Antibody Screen NEGATIVENoSt. Francis HospitalComment on above:Performed By: #### CDP #### [facility] [address] [place] [address] Light Cleaner: Anibal Benavides Metabolic Panelon 09-93-1147Wowou gap [Moles/Vol]10 mmol/L9 - 16 mmol/LBon [facility] HospitalCalcium [Mass/Vol]9.0 mg/dL8.6 - 10.4 mg/dLBon [facility] HospitalChloride [Moles/Vol]103 mmol/L98 - 107 mmol/LBon [facility] HospitalCO2 [Moles/Vol]26 mmol/L20 - 31 mmol/LBon [facility] HospitalCreatinine [Mass/Vol]0.5 mg/dL0.50 - 0.90 mg/dLBon [facility] HospitalEst, Glom Filt Rate- PINFBon [facility] HospitalComment on above: These results are not intended [...] therapy that affects renal tubular secretion. Glucose [Mass/Vol]88 mg/dL74 - 99 mg/dLBon [facility] HospitalInterpretation and review of laboratory resultsAbnormalSmyth County Community HospitalPotassium [Moles/Vol]3.7 mmol/L3.7 - 5.3 mmol/LBon [facility] HospitalSodium [Moles/Vol] 139 mmol/L136 - 145 mmol/LBon [facility] HospitalUrea nitrogen [Mass/Vol]11 mg/dL6 - 20 mg/dLBon [facility] HospitalUrea nitrogen/Creatinine [Mass ratio]22 mg/mgHigh9 - 20[facility] CenterBasic Metabolic Profon 06-33-3745Iqtvd gap [Moles/Vol]10 mmol/LNormal9-16[facility] Comment on above:Performed By: #### VENTURA, TOM, CDP #### [facility] [address] [place] [address] Light Cleaner: Lakhwinder Tim MDBUN/CRE Agmty29Ctrz8-30DdrusAshtabula County Medical Center Comment on above:Performed By: #### VENTURA, LIP, CDP #### [facility] [address] [place] [address] Light Cleaner: JUAREZ Benavidesalcium [Mass/Vol]9.0 mg/dLNormal8.6-10.4As[facility] County Medical CenterComment on above:Performed By: #### TOM WHITEHEAD, CDP #### [address] [place], [place] [id number] Light Cleaner: JUAREZ Benavideshloride [Moles/Vol]103 mmol/HXrbyrk22-650XeusjAshtabula County Medical CenterComment on above:Performed By: #### VENTURA LIP, CDP #### [address] [place] [address] Light Cleaner: Lakhwinder Tim MDCO2 [Moles/Vol]26 mmol/KWfwski77-92PjoioAshtabula County Medical CenterComment on above:Performed By: #### TOM WHITEHEAD, CDP #### [address] [place], [place] 1019483 Light Cleaner: JUAREZ Benavidesreatinine [Mass/Vol]0.5 mg/dLNormal0.50-0.90[facility] County Medical CenterComment on above:Performed By: #### TOM WHITEHEDA, CDP #### [address] [place], [place] [id number] Light Cleaner: Lakhwinder Tim MDGFR/1.73 sq M.predicted among non-blacks MDRD (S/P/Bld) [Vol rate/Area]mL/min/{1.73_m2}Normal>60As[facility] County Medical CenterComment on above:Result Comment: These results are not intended for [...] or following therapy that affects renal tubular secretion.Performed By: #### VENTURA LIP, CDP #### [address] [place] [id number] Light Cleaner: Lakhwinder Tim MDGlucose [Mass/Vol]88 mg/rGMbyaao19-54Qijkz Wildorado HospitalComment on above:Performed By: #### VENTURA LIP, CDP #### [facility] [address] [place], [place] [id number] Light Cleaner: PARUL Benavidesotassium [Moles/Vol]3.7 mmol/LNormal3.7-5.3MercCity Hospital HospitalComment on above:Performed By: #### VENTURA LIP, CDP #### [facility] [address] [place], [place] [id number] Light Cleaner: ADDISON Benavidesodium [Moles/Vol]139 mmol/PIcygtu316-544Imtto Tiffin HospitalComment on above:Performed By: #### TOM WHITEHEAD, CDP #### [facility] [address] [place] [address] [place] [place], [place] [id number] Light Cleaner: Lakhwinder Tim MDUrea nitrogen [Mass/Vol]11 mg/dLNormal6-20MerJohnson Memorial HospitalComment on above:Performed By: #### TOM WHITEHEAD, CDP #### [address] [place], [place] 4542383 Light Cleaner: Lakhwinder Tim [facility] WOODWARDBC with Auto Differentialon 54-79-2062Qmrdhqwcq (Bld) [#/Vol]Bon [facility] HospitalBasophils/100 WBC (Bld)0 %0 - 2 %[facility] HospitalEosinophils (Bld) [#/Vol]Bon [facility] Eosinophils/100 WBC (Bld)0 %Low1 - 4 %[facility] HospitalErythrocyte distribution width (RBC) [Ratio]13.8 %11.8 - 14.4 %Bon [facility] Hematocrit (Bld) [Volume fraction]36.3 %36.3 - 47.1 %Bon [facility] Hemoglobin (Bld) [Mass/Vol]11.7 g/dLLow11.9 - 15.1 g/dLBon [facility] Immature granulocytes (Bld) [#/Vol][facility]woodImmature granulocytes/100 WBC (Bld)0 %0Bon [facility] HospitalInterpretation and review of laboratory resultsAbnormalBon SecHenry County HospitalLymphocytes/100 WBC (Bld)17 %Low24 - 43 %Bon SecHenry County HospitalLymphocytes/100 WBC (Bld)1.52 %Bon [facility] HospitalH (RBC) [Entitic mass]28.1 pg25.2 - 33.5 pgBon [facility] HospitalHC (RBC) [Mass/Vol]32.2 g/dL28.4 - 34.8 g/dLBon SecGlenbeigh HospitalV (RBC) [Entitic vol]87.3 fL82.6 - 102.9 fLBon [facility] HospitalMonocytes/100 WBC (Bld)7 %3 - 12 %[facility] SecHenry County HospitalMonocytes/100 WBC (Bld)0.66 %[facility] HospitalNeutrophils/100 WBC (Bld)76 %High36 - 65 %[facility] HospitalNucleated RBC/100 WBC (Bld) [Ratio]0.0 %0.0 per 100 WBCBon [facility] HospitalPlatelet mean volume (Bld) [Entitic vol]10.5 fL8.1 - 13.5 fLBon [facility] HospitalPlatelets (Bld) [#/Vol]192 10*3/uLBon SecHenry County HospitalRBC (Bld) [#/Vol]4.16 10*6/uL3.95 - 5.11 m/uLBon [facility] HospitalSegmented neutrophils/100 WBC (Bld)6.88 %Bon [facility] HospitalWBC other (Bld) [#/Vol] 9.1[facility] Rusk CountyCBC with Diffon 04-10-2024 Abs. Basophil<0.73Vfsafj1.00-0.20[facility] County Medical CenterComment on above:Performed By: #### CP, LIP, CDP #### [facility] [address] [place], [place] [address] Light Cleaner: Ben Benavides. Eosinophil<0.28Hfvlvq4.00-0.44Mercy Wildorado HospitalComment on above:Performed By: #### CP, LIP, CDP #### [address] [place], [place] [address] Light Cleaner: Ben Benavides.Imm.Granulocyte<0.65Laekkz7.00-0.30Mercy Wildorado HospitalComment on above:Performed By: #### CP, LIP, CDP #### [address] [place] [address] Light Cleaner: Ben Benavides.Neutrophil (Seg)6.88 k/uLNormal1.50-8.10MerMemorial Health System Mari[facility] HospitalComment on above:Performed By: #### VENTURA, LIP, CDP #### [address] [place], [place] [address] Light Cleaner: Lakhwinder Tim MDBasophils/100 WBC (Bld)0 %Normal0-2Mercy Wildorado HospitalComment on above:Performed By: #### VENTURA, LIP, CDP #### [address] [place], [facility]83 Light Cleaner: Lakhwinder Tim MDEosinophils/100 WBC (Bld)0 %Low1-4Mercy Wildorado HospitalComment on above:Performed By: #### CP, LIP, CDP #### [address] [place], [facility]83 Light Cleaner: Lakhwinder Tim MDErythrocyte distribution width (RBC) [Ratio]13.8 % Uwcldf46.8-14.4MerMemorial Health System Marietta Memorial Hospital HospitalComment on above:Performed By: #### CP, LIP, CDP #### [address] [place], [facility] Light Cleaner: Lakhwinder Tim MDHematocrit (Bld) [Volume fraction]36.3 %Normal 36.3-47.1MSelect [facility] [place] HospitalComment on above:Performed By: #### CP, LIP, CDP #### [address] [place] [address] Light Cleaner: Lakhwinder Tim MDHemoglobin (Bld) [Mass/Vol]11.7 g/dLLow11.9-15.1 [facility] HospitalComment on above:Performed By: #### CP, LIP, CDP #### [address] [place] [address] Light Cleaner: Rito Benavidesmature granulocytes/100 WBC (Bld)0 %Uqnqrv3HpcubAshtabula County Medical CenterComment on above:Performed By: #### CP, LIP, CDP #### [address] [place], [place] [address] Light Cleaner: Lakhwinder Tim MDLymphocytes (Bld) [#/Vol]1.52 10*3/uLNormal 1.10-3.70[facility] HospitalComment on above:Performed By: #### VENTURA, LIP, CDP #### [address] [place] [address] Light Cleaner: Oniel Benavidesmphocytes/100 WBC (Bld)17 %Qcb86-27Mhkct Tiffin HospitalComment on above:Performed By: #### CP, LIP, CDP #### [address] [place] [address] Light Cleaner: MILDRED Benavides (RBC) [Entitic mass]28.1 smRfrkaa92.2-33.5 [facility] HospitalComment on above:Performed By: #### CP, LIP, CDP #### [address] [place], [place] [id number] Light Cleaner: Lakhwinder Sturtz, MDMCHC (RBC) [Mass/Vol]32.2 g/nZDsjdtu24.4-34.8[facility] Medical CenterComment on above:Performed By: #### VENTURA LIP, CDP #### [address] [place] [address] Light Cleaner: GUERO BenavidesCV (RBC) [Entitic vol]87.3 bSEnlafy80.6-102.9 [facility] CenterComment on above:Performed By: #### VENTURA LIP, CDP #### [address] [place] [address] Light Cleaner: GUERO Benavidesonocytes (Bld) [#/Vol]0.66 10*3/uLNormal0.10-1.20 [facility] CenterComment on above:Performed By: #### VENTURA LIP, CDP #### [address] [place] [address] Light Cleaner: GUERO Benavidesonocytes/100 WBC (Bld)7 %Normal3-12[facility] Medical CenterComment on above:Performed By: #### VENTURA LIP, CDP #### [address] [place] [address] Light Cleaner: Lakhwinder Tim MDNeutrophil (Seg)76 %Dffu58-82ZyvmpAshtabula County Medical Center Comment on above:Performed By: #### VENTURA, LIP, CDP #### [address] [place] [address] Light Cleaner: Lakhwinder Tim MDNRBC Automated0.0 per 100 WBCNormal0.0[facility] CenterComment on above:Performed By: #### VENTURA, LIP, CDP #### [address] [place], [place] [id number] Light Cleaner: PARUL Benavideslatelet mean volume (Bld) [Entitic vol]10.5 fL Normal8.1-13.5[facility] Medical CenterComment on above:Performed By: #### VENTURA LIP, CDP #### [address] [place], [place] [id number] Light Cleaner: Martina Benavides (Bld) [#/Vol]192 10*3/tXJafegd495-293 [facility] HospitalComment on above:Performed By: #### VENTURA LIP, CDP #### [address] [place] [address] Light Cleaner: CHICA BenavidesBC (Bld) [#/Vol]4.16 10*6/uLNormal3.95-5.11[facility] CenterComment on above:Performed By: #### TOM WHITEHEAD, CDP #### [address] [place], [place] 1908383 Light Cleaner: JACKIE Benavides (Bld) [#/Vol]9.1 10*3/uLNormal3.5-11.3MSelect Medical Specialty Hospital - Columbus SouthComment on above:Performed By: #### TOM WHITEHEAD, CDP #### [address] [place] [address] Light Cleaner: ELENA Benavides ABDOMEN PELVIS W IV CONTRASTon [id number] ABDOMEN PELVIS W IV CONTRASTEXAMINATION: CT OF THE ABDOMEN AND PELVIS WITH [...] bladder is unremarkable. The appendix is normal. Peritoneum/Retroperitoneum: There are few small foci of air [...] Esther Coates MD 04/10/24 Edited Result - FINALNormalMercy [facility] Abdomen and Pelvis W contrast Alexsander . New pneumoperitoneum consistent with perforated viscus. Wall [...] ELA Laird at 8:04 p.m. on 04/10/2024. [facility] CONSOLIDATEDEXAMINATION: CT OF THE ABDOMEN AND PELVIS WITH [...] bladder is unremarkable. The appendix is normal. Peritoneum/Retroperitoneum: There are few small foci of air within the right hemipelvis and air anterior pelvis as well as pneumoperitoneum in the upper abdomen. Small amount of free pelvic fluid. Bones/Soft Tissues: No acute bony or soft tissue abnormality identified. [facility] Esther Ly MD - 04/10/2024 EXAMINATION: CT OF THE [...] bladder is unremarkable. The appendix is normal. Peritoneum/Retroperitoneum: There are few small foci of air [...] ELA Laird at 8:04 p.m. on 04/10/2024. [facility] HospitalRadiology Study observation (narrative)[facility] [employer] [facility] Abdomen and Pelvis W contrast IVOrdered By: Esther Coates on [id number] [facility] Surgical HospitalMagenta Medical Work Phone: Lactic Acidon 27-64-1160Okuexyb (BldV) [Moles/Vol]0.6 mmol/L0.5 - 2.2 mmol/LBon [facility] Smet Memorial HospitalLactate [Moles/Vol]0.6 mmol/LNormal0.5-2.2MercConnecticut HospiceComment on above: Performed By: #### CP, LIP, CDP #### [facility] Lab [address] [place], [place] [id number] Light Cleaner: Paulette Benavidesroscopic Urinalysison 25-17-4819Dkmamlrctk cells LM.HPF (Urine sed) [#/Area]0 TO 2Bon [facility] HospitalInterpretation and review of laboratory resultsAbnormalSmyth County Community HospitalMucus Ql (Urine sed)TRACEAbnormalNoneBon [facility] HospitalRBC LM.HPF (Urine sed) [#/Area]0 TO 2Bon [facility] HospitalWBC LM.HPF (Urine sed) [#/Area]0 TO 2Bon [facility] HospitalUA w/Reflex Cultureon 39-09-2800Wlyrcxqnk, SemiQt,UrNegativeNormalNEGAshtabula County Medical CenterComment on above:Performed By: #### VENTURA, LIP, CDP #### [facility] [address] [place], [place] [id number] Light Cleaner: Kenn Benavides, UrineTRACEAbMarion Hospital Comment on above:Performed By: #### CP, LIP, CDP #### [facility] [address] [place], [facility] Light Cleaner: Jennifer Benavidesrity ()ClearNormalCLEARAshtabula County Medical Center Comment on above:Performed By: #### CP, LIP, CDP #### [facility] [address] [place], [place] [id number] Light Cleaner: JUAREZ Benavidesolor (U)YellowNoalYUniversity Hospitals Parma Medical Center Comment on above:Performed By: #### CP, LIP, CDP #### [facility] [address] [place] [address] [place] [address] Light Cleaner: Lakhwinder Tim MDGlucose Ql (U)NegativeNormalNEGMercy Wildorado HospitalComment on above:Performed By: #### CP, LIP, CDP #### [address] [place], [place] 5707183 Light Cleaner: Lakhwinder Tim MDKetones Ql (U)NegativeNormalNEGMercy Wildorado HospitalComment on above:Performed By: #### CP, LIP, CDP #### [address] [place] [address] Light Cleaner: Lakhwinder Tim MDLeukocyte esterase Test strip Ql (U)NegativeNormal NEGMercy Wildorado HospitalComment on above:Performed By: #### CP, LIP, CDP #### [address] [place], [place] 1040683 Light Cleaner: Lakhwinder Tim MDNitrite,UrNegativeNormalNEGAshtabula County Medical Center Comment on above:Performed By: #### VENTURA, LIP, CDP #### [address] [place] [address] Light Cleaner: Lakhwinder Tim [facility],Ur6.4Dcxtmg6.0-9.0[facility] Medical Centercy [place] Children'S Medical CenterComment on above:Performed By: #### CP, LIP, CDP #### [address] [place] [address] Light Cleaner: PARUL Benavidesrotein Ql (U)NegativeNormalNEGMercy Wildorado HospitalComment on above:Performed By: #### VENTURA, LIP, CDP #### [facility] [address] [place] [address] [place] [address] Light Cleaner: ADDISON Benavidespec. [place],Ur1.572Bmfvoo8.010-1.020Mercy Wildorado HospitalComment on above:Performed By: #### CP, LIP, CDP #### [facility] [address] [place], [place] [id number] Light Cleaner: Lakhwinder Tim MDUrobilinogen,UrNormalNormal0.0-1.0[facility] CenterComment on above:Performed By: #### TOM WHITEHEAD CDP #### [facility] [address] [place] [address] Light Cleaner: BHASKAR Benavides NON OB TRANSVAGINAL W DOPPLERon 75-79-0067LK NON OB TRANSVAGINAL W DOPPLEREXAMINATION: PELVIC ULTRASOUND 04/10/2024 TECHNIQUE: Transvaginal pelvic duplex [...] Signed by: Arlette Steiner MD 04/10/24 Final resultNormalMercy Health [facility] Pelvis transvaginalon 93-79-3744Pkhjrd Doppler flow to the ovaries. The right ovary is not as enlarged when compared with the ultrasound from yesterday. [facility] RIS CONSOLIDATEDEXAMINATION: PELVIC ULTRASOUND 04/10/2024 TECHNIQUE: Transvaginal pelvic duplex [...] venous Doppler flow. Free Fluid: None seen. Arlette Rangel MD - 04/10/2024 EXAMINATION: PELVIC ULTRASOUND 04/10/2024 [...] when compared with the ultrasound from yesterday. [facility] HospitalRadiology Study observation (narrative)[facility] Medical CenterLotLinxUS Pelvis transvaginalOrdered By: Arlette Steiner on 46-23-0416RkbBon Secours Health System Adisn Work Phone: Urinalysis with Reflex to Cultureon 04-10-2024 Bilirubin Ql (U)NegativeNEGATIVEBon [facility] HospitalClarity (U)ClearClearBon [facility] HospitalColor (U)YellowYellowBon [facility] AdisnGlucose Test strip (U) [Mass/Vol]NegativeNEGATIVE mg/dLBon [facility] AdisnHemoglobin Auto test strip Ql (U)TRACEAbnormalNEGATIVESmyth County Community Hospital Interpretation and review of laboratory resultsAbnormalBon [facility] Adisn Ketones (U) [Mass/Vol]NegativeNEGATIVE mg/dLBon [facility] AdisnLeukocyte esterase Test strip Ql (U)NegativeNEGATIVEBon [facility] HospitalNitrite Ql (U) NegativeNEGATIVEBon [facility] HospitalAdura Technologies [facility]woodpH (U)6.0 [pH]5.0 - 9.0Bon [facility] HospitalAdura Technologies [facility] HospitalLoopFuse [facility] Medical CenterProtein (U) [Mass/Vol]NegativeNEGATIVE mg/dLBon [facility] Specific gravity (U) [Rel density]1.0201.010 - 1.020Bon [facility] Urobilinogen Qn (U)Normal0.0 - 1.0 EU/dLBon [facility] HospitalBon [facility] HospitalUrinalysis,Microon 85-99-7815Yqqppksnva cells LM Ql (Urine sed)0 TO 3Mlycne9-99EcfagAshtabula County Medical CenterComment on above:Performed By: #### CP, LIP, CDP #### [facility] [address] [place], [place] 8[address]83 Light Cleaner: Kaitlin Benavides StrandsTRAWESLEYAbnormalFirelands Regional Medical Center South CampusComment on above:Performed By: #### VENTURA, LIP, CDP #### [facility] [address] [place], [place] 434[address]83 Light Cleaner: Zulay Benavides RBC's0 TO 1Ygjksc3-9CdxwaSelect Medical Specialty Hospital [facility] South Comment on above:Performed By: #### VENTURA, LIP, CDP #### [facility] [address] [place], [place] [address]83 Light Cleaner: Zulay Benavides WBC's0 TO 6Qzybta3-5NmxwaAshtabula County Medical Center Comment on above:Performed By: #### VENTURA, LIP, CDP #### [facility] [address] [place], [place] [id number] Light Cleaner: Anibal Benavides Metabolic Panelon 32-06-7156Jbjlz gap [Moles/Vol]8 mmol/LLow9 - 16 mmol/LBon [facility] HospitalCalcium [Mass/Vol]9.0 mg/dL8.6 - 10.4 mg/dLBon [facility] HospitalChloride [Moles/Vol]105 mmol/L98 - 107 mmol/LBon [facility] HospitalCO2 [Moles/Vol]27 mmol/L20 - 31 mmol/LBon [facility] HospitalCreatinine [Mass/Vol]0.5 mg/dL0.50 - 0.90 mg/dLBon [facility] HospitalEst, Glom Filt Rate- PINFBon [facility] HospitalComment on above: These results are not intended [...] therapy that affects renal tubular secretion. Glucose [Mass/Vol]73 mg/dLLow74 - 99 mg/dLBon [facility] HospitalInterpretation and review of laboratory resultsAbnormalSmyth County Community HospitalPotassium [Moles/Vol]4.1 mmol/L3.7 - 5.3 mmol/LBon [facility] HospitalSodium [Moles/Vol] 140 mmol/L136 - 145 mmol/LBon [facility] HospitalUrea nitrogen [Mass/Vol]8 mg/dL6 - 20 mg/dLBon [facility] HospitalUrea nitrogen/Creatinine [Mass ratio]16 mg/mg9 - 20Bon [facility] Memorial HospitalBasic Metabolic Prof on 96-97-9662Mruih gap [Moles/Vol]8 mmol/LLow9-16[facility] Medical CenterComment on above:Performed By: #### TOM WHITEHEAD, CDP #### [facility] [address] [place] [address] [place] [address] Light Cleaner: Lakhwinder Tim MDBUN/CRE Cofit18Jkppig9-81Hmkep [facility] Comment on above:Performed By: #### VENTURA LIP, CDP #### [facility] [address] [place] [address] [place] [address] Light Cleaner: JUAREZ Benavidesalcium [Mass/Vol]9.0 mg/dLNormal8.6-10.4[facility] CenterComment on above:Performed By: #### VENTURA LIP, CDP #### [facility] [address] [place] [address] [place] [address] Light Cleaner: Lakhwinder Sturtz, MDChloride [Moles/Vol]105 mmol/FQbnfxb42-784FhywvAshtabula County Medical CenterComment on above:Performed By: #### VENTURA LIP, CDP #### [address] [place], [place] 379[address]683 Light Cleaner: JUAREZ BenavidesO2 [Moles/Vol]27 mmol/NHeejhx99-57QkwiqAshtabula County Medical CenterComment on above:Performed By: #### VENTURA, LIP, CDP #### [facility] [address] [place], [place] [id number] Light Cleaner: JUAREZ Benavidesreatinine [Mass/Vol]0.5 mg/dLNormal0.50-0.90[facility] Medical CenterComment on above:Performed By: #### VENTURA LIP, CDP #### [address] [place], [place] [address]783 Light Cleaner: Lakhwinder Tim MDGFR/1.73 sq M.predicted among non-blacks MDRD (S/P/Bld) [Vol rate/Area]mL/min/{1.73_m2}Normal>60[facility] Medical CenterComment on above:Result Comment: These results are not intended for [...] or following therapy that affects renal tubular secretion.Performed By: #### VENTURA, LIP, CDP #### [address] [place] [address] Light Cleaner: Lakhwinder Tim MDGlucose [Mass/Vol]73 mg/wQYwz94-01HdferSelect Medical Specialty Hospital - Columbus SouthComment on above:Performed By: #### CP, LIP, CDP #### [facility] [address] [place], [place] 533[address]83 Light Cleaner: PARUL Benavidesotassium [Moles/Vol]4.1 mmol/LNormal3.7-5.3MSelect Medical Specialty Hospital - Columbus SouthComment on above:Performed By: #### CP, LIP, CDP #### [facility] [address] [place] [address] Light Cleaner: ADDISON Benavidesodium [Moles/Vol]140 mmol/NOezkhh453-525YeidwAshtabula County Medical CenterComment on above:Performed By: #### CP, LIP, CDP #### [facility] [address] [place] [address] Light Cleaner: Lakhwinder Tim MDUrea nitrogen [Mass/Vol]8 mg/dLNormal6-20[facility] Medical CenterComment on above:Performed By: #### CP, LIP, CDP #### [facility] [address] [place] [address] [place] [address] Light Cleaner: Lakhwinder Tim [facility] – WOODWARDBC with Auto Differentialon [id number] (Bld) [#/Vol]0.03 10*3/uLBon Secours Highland District Hospitaly [facility] Medical CenterBasophils/100 WBC (Bld)1 %0 - 2 %Bon [facility] Hospitaly [facility] Medical CenterEosinophils (Bld) [#/Vol]0.07 10*3/uLBon Secours Highland District Hospitaly [facility] Medical CenterEosinophils/100 WBC (Bld)1 %1 - 4 %Bon SecWashington Rural Health Collaborativey [facility] Medical CenterErythrocyte distribution width (RBC) [Ratio]13.5 %11.8 - 14.4 %Bon SecWashington Rural Health Collaborativey Health Hematocrit (Bld) [Volume fraction]36.7 %36.3 - 47.1 %Bon SecWashington [facility] Collaborativey Health Hemoglobin (Bld) [Mass/Vol]11.7 g/dLLow11.9 - 15.1 g/dLBon SecWashington Rural Health Collaborativey Health Immature granulocytes (Bld) [#/Vol][facility] Medical CenterImmature granulocytes/100 WBC (Bld)0 %0Bon [facility] District Hospitaly HealthInterpretation and review of laboratory resultsAbnormalBon SecHenry County HospitalLymphocytes/100 WBC (Bld)38 %24 - 43 %Bon [facility] HospitalLymphocytes/100 WBC (Bld)2.24 %[facility] HospitalH (RBC) [Entitic mass]28.1 pg25.2 - 33.5 pgSentara Norfolk General HospitalHC (RBC) [Mass/Vol]31.9 g/dL28.4 - 34.8 g/dLBon SecGlenbeigh HospitalV (RBC) [Entitic vol]88.2 fL82.6 - 102.9 fLSmyth County Community HospitalMonocytes/100 WBC (Bld)7 %3 - 12 %[facility] HospitalMonocytes/100 WBC (Bld)0.40 %[facility] HospitalNeutrophils/100 WBC (Bld)53 %36 - 65 %[facility] HospitalNucleated RBC/100 WBC (Bld) [Ratio]0.0 %0.0 per 100 WBCSmyth County Community HospitalPlatelet mean volume (Bld) [Entitic vol]10.1 fL8.1 - 13.5 fLRussell County Medical Center HealthPlatelets (Bld) [#/Vol]188 10*3/uLBon [facility] HospitalRBC (Bld) [#/Vol]4.16 10*6/uL3.95 - 5.11 m/uLSmyth County Community HospitalSegmented neutrophils/100 WBC (Bld)3.21 %[facility] HospitalWBC other (Bld) [#/Vol] 6.0Bon [facility] HospitalCBC with Diffon 04-09-2024 Abs. Basophil0.03 k/uLNormal0.00-0.20Ashtabula County Medical CenterComment on above: Performed By: #### TOM WHITEHEAD CDP #### [facility] Lab [address] [place] [address] Light Cleaner: Ben Benavides.Imm.Granulocyte<0.24Getmdh5.00-0.30Ashtabula County Medical CenterComment on above:Performed By: #### TOM WHITEHEAD, CDP #### [address] [place], [place] [address] Light Cleaner: Ben Benavides.Neutrophil (Seg)3.21 k/uLNormal1.50-8.10[facility] HospitalComment on above:Performed By: #### CP, LIP, CDP #### [address] [place], [place] [address] Light Cleaner: Lakhwinder Tim MDBasophils/100 WBC (Bld)1 %Normal0-2[facility] HospitalComment on above:Performed By: #### CP, LIP, CDP #### [address] [place], [place] [address] Light Cleaner: Lakhwinder Tim MDEosinophils (Bld) [#/Vol]0.07 10*3/uLNormal 0.00-0.44[facility] HospitalComment on above:Performed By: #### CP, LIP, CDP #### [address] [place], [place] [address] Light Cleaner: ISH Benavidesosinophils/100 WBC (Bld)1 %Normal1-4[facility] HospitalComment on above:Performed By: #### CP, LIP, CDP #### [address] [place], [place] [address] Light Cleaner: Lakhwinder Tim MDErythrocyte distribution width (RBC) [Ratio]13.5 % Aeqump78.8-14.4[facility] HospitalComment on above:Performed By: #### CP, LIP, CDP #### [address] [place] [address] Light Cleaner: Lakhwinder Tim MDHematocrit (Bld) [Volume fraction]36.7 %Normal 36.3-47.1[facility] Wildor[facility] HospitalComment on above:Performed By: #### CP, LIP, CDP #### [address] [place], [place] [id number] Light Cleaner: Lakhwinder Tim MDHemoglobin (Bld) [Mass/Vol]11.7 g/dLLow11.9-15.1 [facility] HospitalComment on above:Performed By: #### CP, LIP, CDP #### [address] [place], [facility] Light Cleaner: Rito Benavidesmature granulocytes/100 WBC (Bld)0 %Wzrrpd3Vqyth Tiffin HospitalComment on above:Performed By: #### CP, LIP, CDP #### [address] [place], [facility] Light Cleaner: Lakhwinder Tim MDLymphocytes (Bld) [#/Vol]2.24 10*3/uLNormal 1.10-3.70[facility] HospitalComment on above:Performed By: #### CP, LIP, CDP #### [address] [place], [facility] Light Cleaner: Oniel Benavidesmphocytes/100 WBC (Bld)38 %Abkcal17-86WcxmpAshtabula County Medical CenterComment on above:Performed By: #### CP, LIP, CDP #### [address] [place], [facility] Light Cleaner: GUERO BenavidesCH (RBC) [Entitic mass]28.1 tfKqhqxn03.2-33.5 [facility] HospitalComment on above:Performed By: #### CP, LIP, CDP #### [address] [place], [facility] Light Cleaner: MILDRED BenavidesC (RBC) [Mass/Vol]31.9 g/eHDtdcpl00.4-34.8[facility] HospitalComment on above:Performed By: #### CP, LIP, CDP #### [address] [place] [address] Light Cleaner: GUERO BenavidesCV (RBC) [Entitic vol]88.2 tWBlnqay63.6-102.9 [facility] Medical CenterComment on above:Performed By: #### CP, LIP, CDP #### [address] [place] [address] Light Cleaner: GUERO Benavidesonocytes (Bld) [#/Vol]0.40 10*3/uLNormal0.10-1.20 [facility] County Medical CenterComment on above:Performed By: #### CP, LIP, CDP #### [address] [place], [facility] Light Cleaner: GUERO Benavidesonocytes/100 WBC (Bld)7 %Normal3-12As[facility]abula County Medical CenterComment on above:Performed By: #### CP, LIP, CDP #### [address] [place], [facility] Light Cleaner: Lakhwinder Tim MDNeutrophil (Seg)53 %Qprapu08-94MqtelAshtabula County Medical CenterComment on above:Performed By: #### CP, LIP, CDP #### [address] [place] [address] Light Cleaner: Lakhwinder Tim MDNRBC Automated0.0 per 100 WBCNormal0.0Ashtabula County Medical CenterComment on above:Performed By: #### CP, LIP, CDP #### [address] [place], [place] [id number] Light Cleaner: PARUL Benavideslatelet mean volume (Bld) [Entitic vol]10.1 fL Normal8.1-13.5As[facility]abula County Medical CenterComment on above:Performed By: #### CP, LIP, CDP #### [address] [place] [id number] Light Cleaner: Martina Benavides (Bld) [#/Vol]188 10*3/jFVrqjhz897-768 [facility] County Medical CenterComment on above:Performed By: #### CP, LIP, CDP #### [facility] Lab [address] [place], [place] [id number] Light Cleaner: MAU Benavides (Bld) [#/Vol]4.16 10*6/uLNormal3.95-5.11[facility] County Medical CenterComment on above:Performed By: #### TOM WHITEHEAD, CDP #### [address] [place], [facility] Light Cleaner: JACKIE Benavides (Bld) [#/Vol]6.0 10*3/uLNormal3.5-11.3MSelect Medical Specialty Hospital - Columbus SouthComment on above:Performed By: #### VENTURA, LIP, CDP #### [address] [place] [address] Light Cleaner: Lakhwinder Tim MDLactic Acidon [id number] (BldV) [Moles/Vol] 0.9 mmol/L0.5 - 2.2 mmol/LBon [facility] Lactate [Moles/Vol]0.9 mmol/LNormal0.5-2.2MSelect Medical Specialty Hospital - [facility] SouthComment on above: Performed By: #### CDP #### [facility] Lab [address] [place], [place] [id number] Light Cleaner: GUERO Benavidesicroscopic Urinalysison [id number] LM Ql (Urine sed)1+AbnormalNoneBon [facility] HospitalEpithelial cells LM.HPF (Urine sed) [#/Area]2 TO 5Bon [facility] HospitalInterpretation and review of laboratory resultsAbnormalBon [facility] HospitalMucus Ql (Urine sed)1+Abnormal NoneBon SecHenry County HospitalRBC LM.HPF (Urine sed) [#/Area]0 TO 2[facility] BeachwoodWBC LM.HPF (Urine sed) [#/Area]0 TO 2[facility]woodBon [facility] HospitalUA w/Reflex Cultureon [id number], SemiQt,UrNegative NormalNEGMerMemorial Health System Marietta Memorial Hospital HospitalComment on above:Performed By: #### UMICAO, UAX #### [facility] Lab [address] [place], [place] [id number] Light Cleaner: Kenn Benavides, UrineNegativeNormalMercy Health St. [facility] Comment on above:Performed By: #### WILLARDO, UAX #### [facility] Lab [address] [place] [address] Dr[place], [place] [id number] Light Cleaner: JUAREZ Benavideslarity ()ClearNormalCLEARAshtabula County Medical Center Comment on above:Performed By: #### WILLARDO, UAX #### [facility] Lab [address] [place] [address] Dr. [place], [place] [id number] Light Cleaner: JUAREZ Benavidesolor (U)YellowNormalYELMerJohnson Memorial Hospital Comment on above:Performed By: #### UMICAO, UAX #### [facility] [address] [place] [address] Dr[address] [place], [place] [id number] Light Cleaner: Lakhwinder Tim MDGlucose Ql (U)NegativeNormalNEGMerMemorial Health System Marietta Memorial Hospital HospitalComment on above:Performed By: #### WILLARDO, UAX #### [facility] Lab [address] [place], [place] [id number] Light Cleaner: Lakhwinder Tim MDKetones Ql (U)NegativeNormalNEGMerJohnson Memorial HospitalComment on above:Performed By: #### UMICAO, UAX #### [facility] Lab [address] [place] [address] Light Cleaner: Lakhwinder Tim MDLeukocyte esterase Test strip Ql (U)NegativeNormal NEGMercy Connecticut Children'S Medical CenterComment on above:Performed By: #### UMMINOO, UAX #### [address] [place], [place] 8[address]83 Light Cleaner: Ciro Benavidestrite,UrNegativeNormalNEGAshtabula County Medical Center Comment on above:Performed By: #### KALYAN, UAX #### [address] [place] [address] Light Cleaner: PARUL Benavides,Ur8.3Ceeuew2.0-9.0[facility] Children'S Medical CenterComment on above:Performed By: #### KALYAN, UAX #### [address] [place], [place] 2376783 Light Cleaner: PARUL Benavidesrotein Ql (U)NegativeNormalNEGProvidence Hospital HospitalComment on above:Performed By: #### KALYAN, UAX #### [address] [place], [place] 585[address]83 Light Cleaner: ADDISON Benavidespec. [place],Ur1.102Puhuqd6.010-1.020Ashtabula County Medical CenterComment on above:Performed By: #### KALYAN, UAX #### [address] [place], [place] [id number] Light Cleaner: Lakhwinder Tim MDUrobilinogen,UrNormalNormal0.0-1.0[facility]'S Medical CenterComment on above:Performed By: #### KALYAN, UAX #### [address] [place], [place] 1044983 Light Cleaner: BHASKAR Benavides NON OB TRANSVAGINAL W DOPPLERon 98-99-1001SJ NON OB TRANSVAGINAL W DOPPLEREXAMINATION: TRANSVAGINAL PELVIC ULTRASOUND WITH DOPPLER 04/09/2024 TECHNIQUE: [...] Signed by: Lexus Villegas MD 04/09/24 Final resultNormalMercy Hartford Hospital Pelvis transvaginalon . No sonographic evidence of ovarian torsion. 2. The previously described complex right ovarian cystic lesion now appears to represent two adjacent simple cysts versus less likely a cystic lesion with a thickened internal septation. A separate 2.7 cm mildly heterogeneous area could represent hemorrhagic cyst. Consider 6-8 week pelvic ultrasound to assess change. 3. Prior hysterectomy. [facility] RIS CONSOLIDATEDEXAMINATION: TRANSVAGINAL PELVIC ULTRASOUND WITH DOPPLER 04/09/2024 TECHNIQUE: [...] Free Fluid: No evidence of free fluid. [facility] Lexus Ayala MD - 04/09/2024 EXAMINATION: TRANSVAGINAL PELVIC ULTRASOUND [...] assess change. 3. Prior hysterectomy. [facility] HealthRad[facility] Study observation (narrative)Jay OkeefeWashington Rural Health Collaborativeamadeo [facility] CenterUS Pelvis transvaginalOrdered By: Lexus Bakari on 41-46-1976Lwk [facility] Work Phone: Urinalysis with Reflex to Cultureon 04-09-2024 Bilirubin Ql (U)NegativeNEGATIVEBon [facility] HealthClarity (U)ClearClearBon [facility] HealthColor (U)YellowYellowBon [facility] HospitalGlucose Test strip (U) [Mass/Vol]NegativeNEGATIVE mg/dLBon [facility] HospitalHemoglobin Auto test strip Ql (U)NegativeNEGATIVEBon [facility] HospitalKetones (U) [Mass/Vol]NegativeNEGATIVE mg/dLBon [facility] HospitalLeukocyte esterase Test strip Ql (U)NegativeNEGATIVEBon [facility] HospitalNitrite Ql (U)Negative NEGATIVEBon [facility] HospitalpH (U)8.0 [pH]5.0 - 9.0[facility] Protein (U) [Mass/Vol]NegativeNEGATIVE mg/dLBMary Washington HospitalSpecific gravity (U) [Rel density]1.0201.010 - 1.020Bon [facility] HospitalUrobilinogen Qn (U)Normal0.0 - 1.0 EU/dLBon [facility] Urinalysis,Microon [id number]+AbnormalNONEMeYale New Haven Children's HospitalComment on above:Performed By: ###JERALD QUIÑONES #### [facility] Lab [address] [place] [address] Light Cleaner: Lakhwinder Tim MDEpithelial cells LM Ql (Urine sed)2 TO 7Jasugf9-07 [facility] Medical CenterComment on above:Performed By: ###JERALD QUIÑONES #### [facility] Lab [address] [place] [address] Light Cleaner: GUERO Benavidesucus Strands1+AbnormalFirelands Regional Medical Center South Campus Comment on above:Performed By: #### JERALD BIGGS #### [facility] Lab [address] [place] [address] Light Cleaner: Zulay Benavides RBC's0 TO 9Kyggqg7-8SzfvfSelect Medical Specialty Hospital - [facility] South Comment on above:Performed By: #### UMICAO, UAX #### [facility] Lab [address] [place] [address] Light Cleaner: Zulay Benavides WBC's0 TO 0Dekanl5-8CxywgAshtabula County Medical Center Comment on above:Performed By: #### KALYAN, UAX #### [facility] Lab [address] [place] [address] Light Cleaner: Lakhwinder Tim [facility] HEALTH – WOODWARDBC with Auto Differentialon [id number] (Bld) [#/Vol]0.04 10*3/uLBon [facility] Hospitalours [facility] BeachwoodBasophils/100 WBC (Bld)1 %0 - 2 %[facility] HospitalEosinophils (Bld) [#/Vol]0.07 10*3/uLBon [facility]ours [facility], BeachwoodEosinophils/100 WBC (Bld)2 %1 - 4 %[facility] HospitalErythrocyte distribution width (RBC) [Ratio]13.7 %11.8 - 14.4 %[facility] Hematocrit (Bld) [Volume fraction]40.3 %36.3 - 47.1 %Bon [facility] Hemoglobin (Bld) [Mass/Vol]12.9 g/dL11.9 - 15.1 g/dLBon SecHenry County Hospital Immature granulocytes (Bld) [#/Vol]Bon [facility] HospitalImmature granulocytes/100 WBC (Bld)0 %0Bon SecHenry County HospitalLymphocytes/100 WBC (Bld) 38 %24 - 43 %Bon [facility] HospitalLymphocytes/100 WBC (Bld)1.81 %Bon [facility] HospitalH (RBC) [Entitic mass]27.9 pg25.2 - 33.5 pgBon [facility] HospitalHC (RBC) [Mass/Vol]32.0 g/dL28.4 - 34.8 g/dLBon [facility] HospitalMCV (RBC) [Entitic vol]87.0 fL82.6 - 102.9 fLSmyth County Community HospitalMonocytes/100 WBC (Bld)6 %3 - 12 %Bon [facility] HospitalMonocytes/100 WBC (Bld)0.27 %[facility] HospitalNeutrophils/100 WBC (Bld)53 %36 - 65 %[facility] HospitalNucleated RBC/100 WBC (Bld) [Ratio]0.0 %0.0 per 100 WBCSmyth County Community HospitalPlatelet mean volume (Bld) [Entitic vol]9.9 fL8.1 - 13.5 fLSmyth County Community HospitalPlatelets (Bld) [#/Vol]259 10*3/uLBon [facility] HospitalRBC (Bld) [#/Vol]4.63 10*6/uL3.95 - 5.11 m/uLSmyth County Community HospitalSegmented neutrophils/100 WBC (Bld)2.58 %[facility] HospitalWBC other (Bld) [#/Vol] 4.8Bon [facility] HospitalCBC with Diffon 04-02-2024 Abs. Basophil0.04 k/uLNormal0.00-0.20MerMemorial Health System Marietta Memorial Hospital HospitalComment on above: Performed By: #### CDP #### [address] [place] [address] Light Cleaner: Ben Benavides.Imm.Granulocyte<0.19Ivjmhc2.00-0.30MerJohnson Memorial HospitalComment on above:Performed By: #### CDP #### [address] [place] [address] Light Cleaner: Ben Benavides.Neutrophil (Seg)2.58 k/uLNormal1.50-8.10As[facility] County Medical CenterComment on above:Performed By: #### CDP #### [address] [place] [facility] Light Cleaner: Lakhwinder Tim MDBasophils/100 WBC (Bld)1 %Normal0-2[facility] HospitalComment on above:Performed By: #### CDP #### [address] [place], [facility] Light Cleaner: Lakhwinder Tim MDEosinophils (Bld) [#/Vol]0.07 10*3/uLNormal 0.00-0.44[facility] HospitalComment on above:Performed By: #### CDP #### [address] [place] [address] Light Cleaner: ISH Benavidesosinophils/100 WBC (Bld)2 %Normal1-4MerMemorial Health System Marietta Memorial Hospital HospitalComment on above:Performed By: #### CDP #### [address] [place], [place] [address] Light Cleaner: Lakhwinder Tim MDErythrocyte distribution width (RBC) [Ratio]13.7 % Nqljwn57.8-14.4[facility] HospitalComment on above:Performed By: #### CDP #### [address] [place], [facility] Light Cleaner: Lakhwinder Tim MDHematocrit (Bld) [Volume fraction]40.3 %Normal 36.3-47.1[facility] HospitalComment on above:Performed By: #### CDP #### [address] [place], [facility] Light Cleaner: Lakhwinder Tim MDHemoglobin (Bld) [Mass/Vol]12.9 g/dLNormal 11.9-15.1[facility] HospitalComment on above:Performed By: #### CDP #### [address] [place] [id number] Light Cleaner: Lakhwinder Sturtz, MDImmature granulocytes/100 WBC (Bld)0 %Hiogvw5AdtjyAshtabula County Medical CenterComment on above:Performed By: #### CDP #### [address] [place], [place] 0816483 Light Cleaner: Oniel Benavidesmphocytes (Bld) [#/Vol]1.81 10*3/uLNormal 1.10-3.70[facility] County Medical CenterComment on above:Performed By: #### CDP #### [address] [place] [address] Light Cleaner: Oniel Benavidesmphocytes/100 WBC (Bld)38 %Tftaip88-39BtjnrAshtabula County Medical CenterComment on above:Performed By: #### CDP #### [address] [place], [place] 1672283 Light Cleaner: GUERO BenavidesCH (RBC) [Entitic mass]27.9 ybTusbnn52.2-33.5 [facility] Medical CenterComment on above:Performed By: #### CDP #### [address] [place], [place] 125[address]83 Light Cleaner: GUERO BenavidesCHC (RBC) [Mass/Vol]32.0 g/wXQauqdv91.4-34.8[facility] Medical CenterComment on above:Performed By: #### CDP #### [address] [place], [place] [address] Light Cleaner: GUERO BenavidesCV (RBC) [Entitic vol]87.0 eFBsnzug57.6-102.9 [facility] Medical CenterComment on above:Performed By: #### CDP #### [address] [place] [address] Light Cleaner: GUERO Benavidesonocytes (Bld) [#/Vol]0.27 10*3/uLNormal0.10-1.20 [facility] HospitalComment on above:Performed By: #### CDP #### [address] [place] [address] Light Cleaner: GUERO Benavidesonocytes/100 WBC (Bld)6 %Normal3-12[facility] Medical CenterComment on above:Performed By: #### CDP #### [address] [place] [address] Light Cleaner: Duran Benavidesutrophil (Seg)53 %Qxsxpc54-57Xgmch [facility]iffin HospitalComment on above:Performed By: #### CDP #### [address] [place], [place] 385[address]83 Light Cleaner: Lakhwinder Tim MDNRBC Automated0.0 per 100 WBCNormal0.0[facility] HospitalComment on above:Performed By: #### CDP #### [address] [place] [address] Light Cleaner: Bandar Benavides mean volume (Bld) [Entitic vol]9.9 fL Normal8.1-13.5[facility] Medical CenterComment on above:Performed By: #### CDP #### [address] [place], [facility] Light Cleaner: Dayana Benavidestepooja (Bld) [#/Vol]259 10*3/yVByzlfo549-098 [facility] HospitalComment on above:Performed By: #### CDP #### [address] [place], [place] [address]883 Light Cleaner: Lakhwinder Tim MDRBC (Bld) [#/Vol]4.63 10*6/uLNormal3.95-5.11[facility] HospitalComment on above:Performed By: #### CDP #### [facility] Lab [address] [place], [place] [id number] Light Cleaner: Lakhwinder Tim MDWBC (d) [#/Vol]4.8 10*3/uLNormal3.5-11.3[facility] HospitalComment on above:Performed By: #### CDP #### [facility] Lab [address] [place], [place] [id number] Light Cleaner: Lakhwinder Tim, MDCT ABDOMEN PELVIS W IV CONTRASTon [id number] ABDOMEN PELVIS W IV CONTRASTEXAMINATION: CT OF THE ABDOMEN AND PELVIS WITH [...] COMPARISON: None HISTORY: ORDERING SYSTEM PROVIDED HISTORY: [facility] abdominal pain TECHNOLOGIST PROVIDED HISTORY: [facility] abdominal pain Decision Support Exception - unselect [...] bladder appears stable. No evidence of lymphadenopathy. Peritoneum/Retroperitoneum: No retroperitoneal lymphadenopathy. Mild fat containing periumbilical hernia. Bones/Soft Tissues: Lumbar spine and sacrum appear unremarkable. No acute soft tissue abnormality. IMPRESSION: 1. No acute intra-abdominal or pelvic process. 2. Mild constipation. Appendix well visualized and appears normal. 3. Mild fat containing periumbilical hernia. 4. Status post hysterectomy. Interpreted by: Opal Henry MD Signed by: Opal Henry MD 04/02/24 Final resultNormalMercy Connecticut Children'S Medical CenterCom Metabolic Profon [id number] [Mass/Vol]4.7 g/dLNormal3.5-5.2[facility] HospitalComment on above:Performed By: #### UMMINOO, UAX #### [address] [place] [address] Light Cleaner: Lakhwinder Tim MDAlbumin/Glob Ratio1.8Ofafza1.0-2.5MerMemorial Health System [facility] HospitalComment on above:Performed By: #### KALYAN, UAX #### [address] [place] [address] Light Cleaner: Sergio Benavideskaline Phos60 U/HIzunyf68-614Vnicn [facility] HospitalComment on above:Performed By: #### KALYAN UAX #### [address] [place] [address] Light Cleaner: Lakhwinder Tim MDALT [Catalytic activity/Vol]9 U/ULvu75-45Gqnpk [facility] HospitalComment on above:Performed By: #### KALYAN UAX #### [address] [place] [address] Light Cleaner: Lakhwinder Tim MDAnion gap [Moles/Vol]9 mmol/LNormal9-16[facility] HospitalComment on above:Performed By: #### KALYAN, UAX #### [address] [place] [address] Light Cleaner: Lakhwinder Tim MDAST [Catalytic activity/Vol]16 U/ZCqdufq18-64Pcqzw [facility] HospitalComment on above:Performed By: #### KALYAN, UAX #### [address] [place], [place] [address]83 Light Cleaner: Lakhwinder Tim MDBilirubin [Mass/Vol]0.3 mg/dLNormal0.00-1.20MerMemorial Health System [facility] HospitalComment on above:Performed By: #### KALYAN, UAX #### [address] [place] [address] Light Cleaner: Lakhwinder Tim MDBUN/CRE Ytqff35Otjoyq6-38Faott [facility] Comment on above:Performed By: #### KALYAN UAX #### [facility] Lab [address] [place] [address] [place] [address] Light Cleaner: JUAREZ Benavidesalcium [Mass/Vol]9.4 mg/dLNormal8.6-10.4[facility] Medical CenterComment on above:Performed By: #### KALYAN UAX #### [address] [place], [place] 0635683 Light Cleaner: JUAREZ Benavideshloride [Moles/Vol]104 mmol/EDwymps50-714BcyjzAshtabula County Medical CenterComment on above:Performed By: #### KALYAN UAX #### [address] [place] [address] Light Cleaner: JUAREZ BenavidesO2 [Moles/Vol]26 mmol/TBpdokp07-79ClbnuAshtabula County Medical CenterComment on above:Performed By: #### KALYAN UAX #### [address] [place], [place] [address]236383 Light Cleaner: JUAREZ Benavidesreatinine [Mass/Vol]0.5 mg/dLNormal0.50-0.90[facility] Medical CenterComment on above:Performed By: #### KALYAN UAX #### [address] [place] [address] Light Cleaner: Lakhwinder Tim MDGFR/1.73 sq M.predicted among non-blacks MDRD (S/P/Bld) [Vol rate/Area]mL/min/{1.73_m2}Normal>60[facility] Medical CenterComment on above:Result Comment: These results are not intended for [...] or following therapy that affects renal tubular secretion.Performed By: #### KALYAN, UAX #### [address] [place] [address] Light Cleaner: Lakhwinder Tim MDGlucose [Mass/Vol]88 mg/xGWtxvrr11-60Kzuhx [facility] HospitalComment on above:Performed By: #### KALYAN, UAX #### [address] [place] [address] Light Cleaner: PARUL Benavidesotassium [Moles/Vol]3.7 mmol/LNormal3.7-5.3MSelect Medical [facility] HospitalComment on above:Performed By: #### KALYAN UAX #### [address] [place] [address] Light Cleaner: Lakhwinder Tim MDProtein [Mass/Vol]7.8 g/dLNormal6.6-8.7[facility] HospitalComment on above:Performed By: #### KALYAN, UAX #### [address] [place], [place] 1629283 Light Cleaner: ADDISON Benavidesodium [Moles/Vol]139 mmol/XDtaysh433-204Ekhhs [facility] HospitalComment on above:Performed By: #### KALYAN, UAX #### [address] [place], [place] [id number] Light Cleaner: Lakhwinder Tim MDUrea nitrogen [Mass/Vol]6 mg/dLNormal6-20[facility] HospitalComment on above:Performed By: #### KALYAN, UAX #### [address] [place], [place] [id number] Light Cleaner: Lakhwinder Tim, [facility] Metabolic Panelon [id number] [Mass/Vol]4.7 g/dL3.5 - 5.2 g/dLBon [facility] HospitalLotLinxAlbumin/Globulin [Mass ratio]1.6 {ratio}1.0 - 2.5Bon [facility] [employer] HealthALP [Catalytic activity/Vol]60 U/L35 - 104 U/LBon [facility]ours Highland District HospitalLoopFuse HealthALT [Catalytic activity/Vol]9 U/LLow10 - 35 U/LBon [facility] Highland District HospitalMagenta MedicalAnion gap [Moles/Vol]9 mmol/L9 - 16 mmol/LBon SecWashington [facility] Health CollaborativeLoopFuse HealthAST [Catalytic activity/Vol]16 U/L10 - 35 U/LBon [facility] HospitalMagenta MedicalBilirubin [Mass/Vol]0.3 mg/dL0.00 - 1.20 mg/dLBon [facility] [employer] HealthCalcium [Mass/Vol]9.4 mg/dL8.6 - 10.4 mg/dLBon [facility] [employer] Chloride [Moles/Vol]104 mmol/L98 - 107 mmol/LBon [facility] HealthCO2 [Moles/Vol]26 mmol/L20 - 31 mmol/LBon [facility] AdisnCreatinine [Mass/Vol] 0.5 mg/dL0.50 - 0.90 mg/dLBon [facility] FlyReadyJetEst, Glom Filt Rate- PINFBon [facility] HospitalLoopFuse [facility] Va Medical CenterComment on above: These results are not intended [...] therapy that affects renal tubular secretion. Glucose [Mass/Vol]88 mg/dL74 - 99 mg/dLBon [facility] HospitalLotLinxInterpretation and review of laboratory resultsAbnormalBon [facility] [employer]JetPotassium [Moles/Vol]3.7 mmol/L3.7 - 5.3 mmol/LBon [facility] HospitalThird Chicken HealthProtein [Mass/Vol] 7.8 g/dL6.6 - 8.7 g/dLBon [facility] HospitalSodium [Moles/Vol]139 mmol/L136 - 145 mmol/LBon [facility] HospitalUrea nitrogen [Mass/Vol]6 mg/dL6 - 20 mg/dLBon [facility] HospitalUrea nitrogen/Creatinine [Mass ratio]12 mg/mg9 - 20Bon [facility] HospitalLactic Acidon [id number] [Moles/Vol]1.4 mmol/LNormal0.5-2.2[facility]'S Medical CenterComment on above: Performed By: #### KALYAN UAX #### [facility] [address] [place] [address] Light Cleaner: Presley Benavidesate (BldV) [Moles/Vol]1.4 mmol/L0.5 - 2.2 mmol/LBon [facility] HospitalMicroscopic Urinalysison [id number] cells LM.HPF (Urine sed) [#/Area]0 TO 2Bon [facility] HospitalRBC LM.HPF (Urine sed) [#/Area]0 TO 2Bon [facility] HospitalWBC LM.HPF (Urine sed) [#/Area]0 TO 2Bon [facility] HospitalUA w/Reflex Cultureon [id number], SemiQt,UrNegativeNormalNEGMerJohnson Memorial HospitalComment on above:Performed By: #### KALLIE BIGGSX #### [facility] [address] [place] [address] Light Cleaner: Kenn Benavides, UrineNegativeNormalMercy Health St. [facility] Comment on above:Performed By: ###JERALD QUIÑONES #### [facility] [address] [place] [address] Light Cleaner: Darion Benavides (U)ClearNormalCLEARAshtabula County Medical Center Comment on above:Performed By: #### UMICAO, UAX #### [facility] [address] [place] [address] Dr. [place], [place] [id number] Light Cleaner: JUAREZ Benavidesolor (U)YellowNormalYELMerJohnson Memorial Hospital Comment on above:Performed By: #### UMMINOO, UAX #### [facility] [address] [place] [address] Dr. [place], [place] [id number] Light Cleaner: Lakhwinder Tim MDGlucose Ql (U)NegativeNormalNEGMercy Wildorado HospitalComment on above:Performed By: #### WILLARDO, UAX #### [address] [place], [place] [id number] Light Cleaner: Lakhwinder Tim MDKetones Ql (U)NegativeNormalNEGMercy Connecticut Children'S Medical CenterComment on above:Performed By: #### KALYAN, UAX #### [facility] [address] [place] [address] Dr. [place], [place] [id number] Light Cleaner: Lakhwinder Tim MDLeukocyte esterase Test strip Ql (U)NegativeNormal NEGAshtabula County Medical CenterComment on above:Performed By: #### KALYAN UAX #### [address] [place], [place] [id number] Light Cleaner: Lakhwinder Tim MDNitrite,UrNegativeNormalNEGAshtabula County Medical Center Comment on above:Performed By: #### KALYAN, UAX #### [facility] [address] [place] [address] Dr[place], [place] 1985483 Light Cleaner: PARUL Benavides,Ur8.7Jgokmg4.0-9.0MerJohnson Memorial HospitalComment on above:Performed By: #### KALYAN, UAX #### [facility] [address] [place] [address] [place] [address] Light Cleaner: PARUL Benavidesrotein Ql (U)NegativeNormalNEGMercy Wildorado HospitalComment on above:Performed By: #### KALYAN, UAX #### [facility] [address] [place] [address] Light Cleaner: Luis Fernando Benavides. [place],Ur1.183Wjyvug1.010-1.020Ashtabula County Medical CenterComment on above:Performed By: #### KALYAN, UAX #### [facility] [address] [place] [address] Light Cleaner: Blaze Benavidesbilinogen,UrNormalNormal0.0-1.0As[facility] County Medical CenterComment on above:Performed By: #### KALYAN UAX #### [facility] [address] [place] [address] Light Cleaner: BHASKAR Benavides NON OB TRANSVAGINAL W DOPPLERon [id number] NON OB TRANSVAGINAL W DOPPLEREXAMINATION: TRANSVAGINAL PELVIC ULTRASOUND WITH DOPPLER 04/02/2024 TECHNIQUE: [...] Signed by: Yasir Bertrand MD 04/02/24 Final resultNormalMercy [facility] Hospital Pelvis transvaginalon . Patient status post hysterectomy. 2. Unremarkable sonographic appearance of the left ovary, without evidence of torsion or mass. 3. No evidence of right ovarian torsion or solid mass. Persistent 3.5 cm complex cystic lesion with the right adnexa, most likely a benign ovarian hemorrhagic cyst, requiring no further follow-up given size of the lesion and patient's premenopausal status. [facility] RIS CONSOLIDATEDEXAMINATION: TRANSVAGINAL PELVIC ULTRASOUND WITH DOPPLER 04/02/2024 TECHNIQUE: [...] Free Fluid: No evidence of free fluid. [facility] Yasir Martins MD - 04/02/2024 EXAMINATION: TRANSVAGINAL PELVIC ULTRASOUND [...] of the lesion and patient's premenopausal status. [facility] TendrRadiology Study observation (narrative)[facility] Tendr Pelvis transvaginalOrdered By: Yasir Bertrand on [id number] Tendr Work Phone: Urinalysis with Reflex to Cultureon 04-02-2024 Bilirubin Ql (U)NegativeNEGATIVEBon TendrClarity (U)ClearClearBon [facility] HospitalLotLinxColor (U)YellowYellowBon [facility] HospitalGlucose Test strip (U) [Mass/Vol]NegativeNEGATIVE mg/dLBon [facility] HospitalHemoglobin Auto test strip Ql (U)NegativeNEGATIVEBon [facility] HealthKetones (U) [Mass/Vol]NegativeNEGATIVE mg/dLBon [facility] HospitalLeukocyte esterase Test strip Ql (U)NegativeNEGATIVEBon SecSavoy Medical Center HealthNitrite Ql (U)Negative NEGATIVEBon [facility] HealthpH (U)8.0 [pH]5.0 - 9.0Bon [facility] Protein (U) [Mass/Vol]NegativeNEGATIVE mg/dLBon [facility] HealthSpecific gravity (U) [Rel density]1.0201.010 - 1.020Bon [facility] HospitalUrobilinogen Qn (U)Normal0.0 - 1.0 EU/dLBon [facility] Urinalysis,Microon [id number] cells LM Ql (Urine sed)0 TO 2Oontqq5-93 [facility] County Medical CenterComment on above:Performed By: #### KALYAN, UAX #### [facility] [address] [place] [address] Light Cleaner: Zulay Benavides RBC's0 TO 8Lqhfuz7-5FumqsSelect Medical Specialty Hospital [facility] Comment on above:Performed By: #### KALYAN, UAX #### [facility] [address] [place] [address] Light Cleaner: Zulay Benavides WBC's0 TO 9Xwvfkp6-7LjrdqAshtabula County Medical Center Comment on above:Performed By: #### WILLARDO, UAX #### [facility] [address] [place] [address] Light Cleaner: MARK Benavides with Diffon 99-79-1960Lmoetgwdj (Bld) [#/Vol] BON [facility] HOSPITALBasophils/100 WBC (Bld)0 %0 - 2 %BON [facility]'BLEN[facility] HOSPITALEosinophils (Bld) [#/Vol]0.08 10*3/uLBON [facility] Eosinophils/100 WBC (Bld)2 %1 - 4 %[facility] HOSPITALErythrocyte distribution width (RBC) [Ratio]13.6 %11.8 - 14.4 %[facility] Hematocrit (Bld) [Volume fraction]35.9 %Low36.3 - 47.1 %[facility] Hemoglobin (Bld) [Mass/Vol]12.0 g/dL11.9 - 15.1 g/dLBON [facility] Immature granulocytes (Bld) [#/Vol][facility] HOSPITALImmature granulocytes/100 WBC (Bld)0 %0[facility] HOSPITALInterpretation and review of laboratory resultsAbnormalINOVA LOUDOUN HOSPITALLymphocytes/100 WBC (Bld)37 %24 - 43 %[facility] HOSPITALLymphocytes/100 WBC (Bld)1.59 %[facility] HOSPITALH (RBC) [Entitic mass]28.5 pg25.2 - 33.5 pgUVA HEALTH UNIVERSITY HOSPITALHC (RBC) [Mass/Vol]33.4 g/dL28.4 - 34.8 g/dLBON OH[facility]ALTH O'BLEN[facility] HOSPITALMCV (RBC) [Entitic vol]85.3 fL82.6 - 102.9 fLINOVA LOUDOUN HOSPITALMonocytes/100 WBC (Bld)8 %3 - 12 %[facility] HOSPITALMonocytes/100 WBC (Bld)0.32 %[facility] HOSPITALNeutrophils/100 WBC (Bld)53 %36 - 65 %[facility] HOSPITALNucleated RBC/100 WBC (Bld) [Ratio]0.0 %0.0 per 100 WBCINOVA LOUDOUN HOSPITALPlatelet mean volume (Bld) [Entitic vol]10.6 fL8.1 - 13.5 fLINOVA LOUDOUN HOSPITALPlatelets (Bld) [#/Vol]202 10*3/uLBON [facility] O'BLENESS HOSPITALRBC (Bld) [#/Vol]4.21 10*6/uL3.95 - 5.11 m/uLBON OH[facility]ALTH O'BLENESS HOSPITALSegmented neutrophils/100 WBC (Bld)2.26 %BON [facility]BLEN[facility] HOSPITALWBC other (Bld) [#/Vol] 4.3BON [facility] HOSPITALBON [facility]'BLEN[facility] HOSPITALAbs. Basophil<0.03Normal 0.00-0.20MerMemorial Health System Mari[facility] HospitalComment on above:Performed By: #### CP, LIP, CDP #### [address] [place], [facility] Light Cleaner: Ben Benavides.Imm.Granulocyte<0.98Hlriun5.00-0.30MerMemorial Health System Marietta Memorial Hospital HospitalComment on above:Performed By: #### VENTURA LIP, CDP #### [address] [place] [id number] Light Cleaner: Ben Benavides.Neutrophil (Seg)2.26 k/uLNormal1.50-8.10MerMemorial Health System [facility] HospitalComment on above:Performed By: #### VENTURA LIP, CDP #### [address] [place], [place] [address] Light Cleaner: Lakhwinder Tim MDBasophils/100 WBC (Bld)0 %Normal0-2[facility] HospitalComment on above:Performed By: #### VENTURA LIP, CDP #### [address] [place], [facility] Light Cleaner: Lakhwinder Tim MDEosinophils (Bld) [#/Vol]0.08 10*3/uLNormal 0.00-0.44MerMemorial Health System [facility] HospitalComment on above:Performed By: #### VENTURA LIP, CDP #### [address] [place], [facility] Light Cleaner: ISH Benavidesosinophils/100 WBC (Bld)2 %Normal1-4MerMemorial Health System [facility] Hospital HospitalComment on above:Performed By: #### VENTURA, LIP, CDP #### [address] [place], [facility] Light Cleaner: Lakhwinder Tim MDErythrocyte distribution width (RBC) [Ratio]13.6 % Ximexz63.8-14.4As[facility] County Medical CenterComment on above:Performed By: #### CP, LIP, CDP #### [address] [place], [facility] Light Cleaner: Lakhwinder Tim MDHematocrit (Bld) [Volume fraction]35.9 %Low 36.3-47.1MSelect [facility] [place] HospitalComment on above:Performed By: #### VENTURA, LIP, CDP #### [address] [place], [facility] Light Cleaner: Lakhwinder Tim MDHemoglobin (Bld) [Mass/Vol]12.0 g/dLNormal 11.9-15.1MSelect [facility] HospitalComment on above:Performed By: #### VENTURA, LIP, CDP #### [address] [place], [place] [address] Light Cleaner: Lakhwinder Tim MDImmature granulocytes/100 WBC (Bld)0 %Xxtugi9Xjvyp [facility] HospitalComment on above:Performed By: #### VENTURA, LIP, CDP #### [address] [place], [facility] Light Cleaner: Lakhwinder Tim MDLymphocytes (Bld) [#/Vol]1.59 10*3/uLNormal 1.10-3.70[facility] HospitalComment on above:Performed By: #### VENTURA, LIP, CDP #### [address] [place] [address] Light Cleaner: Oniel Benavidesmphocytes/100 WBC (Bld)37 %Uxbqry36-71Upfnh [facility] HospitalComment on above:Performed By: #### VENTURA, LIP, CDP #### [address] [place], [place] [id number] Light Cleaner: GUERO BenavidesCH (RBC) [Entitic mass]28.5 ukHqvzel12.2-33.5 [facility] HospitalComment on above:Performed By: #### CP, LIP, CDP #### [address] [place], [place] 9504383 Light Cleaner: GUERO BenavidesCHC (RBC) [Mass/Vol]33.4 g/xTFqxfjt32.4-34.8[facility] County Medical CenterComment on above:Performed By: #### CP, LIP, CDP #### [address] [place], [facility] Light Cleaner: GUERO BenavidesCV (RBC) [Entitic vol]85.3 rKGfitsy30.6-102.9 [facility] HospitalComment on above:Performed By: #### CP, LIP, CDP #### [address] [place], [facility] Light Cleaner: GUERO Benavidesonocytes (Bld) [#/Vol]0.32 10*3/uLNormal0.10-1.20 [facility] Medical CenterComment on above:Performed By: #### CP, LIP, CDP #### [address] [place], [facility] Light Cleaner: GUERO Benavidesonocytes/100 WBC (Bld)8 %Normal3-12[facility] HospitalComment on above:Performed By: #### CP, LIP, CDP #### [address] [place], [place] [id number] Light Cleaner: Lakhwinder Tim MDNeutrophil (Seg)53 %Fyfhlf08-40Gkwwq [facility] HospitalComment on above:Performed By: #### CP, LIP, CDP #### [address] [place] [address] Light Cleaner: GAYATRI Benavides Automated0.0 per 100 WBCNormal0.0[facility] County Medical CenterComment on above:Performed By: #### VENTURA, LIP, CDP #### [address] [place] [address] Light Cleaner: Bandar Benavides mean volume (Bld) [Entitic vol]10.6 fL Normal8.1-13.5[facility] County Medical CenterComment on above:Performed By: #### VENTURA LIP, CDP #### [address] [place] [address] Light Cleaner: Martina Benavides (Bld) [#/Vol]202 10*3/jPQuwbgo934-092 [facility] HospitalComment on above:Performed By: #### TOM WHITEHEAD, CDP #### [address] [place] [address] Light Cleaner: MAU Benavides (Bld) [#/Vol]4.21 10*6/uLNormal3.95-5.11[facility] Medical CenterComment on above:Performed By: #### VENTURA LIP, CDP #### [address] [place], [place] [address] Light Cleaner: JACKIE Benavides (Bld) [#/Vol]4.3 10*3/uLNormal3.5-11.3MSelect [facility] [place] HospitalComment on above:Performed By: #### VENTURA LIP, CDP #### [address] [place], [place] 9805183 Light Cleaner: JUAREZ Benavidesshaneka 14-81-5156Ajqgkrv [Mass/Vol]4.4 g/dL3.5 - 5.2 g/dLBON [facility]BLEN[facility] HOSPITALAlbumin/Globulin [Mass ratio]1.4 {ratio}1.0 - 2.5B[facility] MER[facility] HEALTHALP [Catalytic activity/Vol]66 U/L35 - 104 U/LBON [facility] MERCY HEALTHALT [Catalytic activity/Vol]9 U/LLow10 - 35 U/LBON [facility]CY HEALTHAnion gap [Moles/Vol]9 mmol/L9 - 16 mmol/LB[facility] AST [Catalytic activity/Vol]18 U/L10 - 35 U/LBON [facility] HEALTHBilirubin [Mass/Vol]mg/dL0.00 - 1.20 mg/dLBON [facility]RS MERCY HEALTHCalcium [Mass/Vol]9.2 mg/dL8.6 - 10.4 mg/dLBON [facility]RS MERCY HEALTHChloride [Moles/Vol]104 mmol/L98 - 107 mmol/LBON [facility]RS MERCY HEALTHCO2 [Moles/Vol]24 mmol/L20 - 31 mmol/LBON [facility]RS KnoY HEALTHCreatinine [Mass/Vol]0.6 mg/dL0.50 - 0.90 mg/dLBON SECOURS GigsTime HEALTHEst, Glom Filt Rate- PINFBON SECOURS WADSWORTH-RITTMAN HOSPITALPF Management Services HEALTHComment on above: These results are not intended [...] therapy that affects renal tubular secretion. Glucose [Mass/Vol]86 mg/dL74 - 99 mg/dLBON SECOURS KnoY HEALTHInterpretation and review of laboratory resultsAbnormalBON [facility]OURS MERCY HEALTHPotassium [Moles/Vol]3.8 mmol/L3.7 - 5.3 mmol/LBON SECOURS KnoY HEALTHProtein [Mass/Vol] 7.6 g/dL6.6 - 8.7 g/dLBON SECOURS MERCY HEALTHSodium [Moles/Vol]137 mmol/L136 - 145 mmol/LBON SECOURS KnoY HEALTHUrea nitrogen [Mass/Vol]9 mg/dL6 - 20 mg/dLBON SECOURS KnoY HEALTHUrea nitrogen/Creatinine [Mass ratio]15 mg/mg9 - 20BON [facility] ABDOMEN PELVIS W IV CONTRASTon 18-12-1148LO ABDOMEN PELVIS W IV CONTRASTEXAMINATION: CT OF THE ABDOMEN AND PELVIS WITH [...] COMPARISON: 02/07/2024 HISTORY: ORDERING SYSTEM PROVIDED HISTORY: [facility] pain TECHNOLOGIST PROVIDED HISTORY: [facility] pain Decision Support Exception - [...] posterior aspect of the largest cyst. Unchanged. Peritoneum/Retroperitoneum: No free fluid or significant lymphadenopathy. Ureters [...] Signed by: Wily Kumar MD 03/17/24 Final resultNormalMercy [facility] Abdomen and Pelvis W contrast Alexsander . No direct evidence for acute infective or inflammatory process. 2. A 4.8 cm right adnexal cyst was previously 2.4 cm. Size and features would support benign functional cyst. Pelvic ultrasound may be considered in light of change in size, patient sentence and fat stranding. [facility] RIS CONSOLIDATEDEXAMINATION: CT OF THE ABDOMEN AND PELVIS WITH [...] COMPARISON: 02/07/2024 HISTORY: ORDERING SYSTEM PROVIDED HISTORY: [facility] pain TECHNOLOGIST PROVIDED HISTORY: [facility] pain Decision Support Exception - [...] posterior aspect of the largest cyst. Unchanged. Peritoneum/Retroperitoneum: No free fluid or significant lymphadenopathy. Ureters show no calculus. Bones/Soft Tissues: No acute abnormality of the bones. The superficial soft tissues show no acute process. [facility] Wily Garcia MD - 03/17/2024 EXAMINATION: CT OF THE [...] COMPARISON: 02/07/2024 HISTORY: ORDERING SYSTEM PROVIDED HISTORY: [facility] pain TECHNOLOGIST PROVIDED HISTORY: [facility] pain Decision Support Exception - [...] posterior aspect of the largest cyst. Unchanged. Peritoneum/Retroperitoneum: No free fluid or significant lymphadenopathy. Ureters [...] in size, patient sentence and fat stranding. [facility]OSPITALRadiology Study observation (narrative)[facility] Abdomen and Pelvis W contrast IVOrdered By: Wily Kumar on 03-17-2024 [facility] Work Phone: Comp Metabolic Profon [id number] [Mass/Vol]4.4 g/dLNormal3.5-5.2[facility] Medical CenterComment on above:Performed By: #### TOM WHITEHEAD CDP #### [address] [place], [place] [id number] Light Cleaner: Lakhwinder Tim MDAlbumin/Glob Ratio1.9Qlnoyq9.0-2.5[facility] County Medical CenterComment on above:Performed By: #### TOM WHITEHEAD, CDP #### [address] [place] [address] Light Cleaner: Sergio Benavideskaline Phos66 U/MKtqjdc16-063AugjxAshtabula County Medical CenterComment on above:Performed By: #### TOM WHITEHEAD, TOMAS #### [address] [place], [place] 0[address]83 Light Cleaner: Lakhwinder Tim MDALT [Catalytic activity/Vol]9 U/YObs23-27TytokAshtabula County Medical CenterComment on above:Performed By: #### CP, LIP, CDP #### [address] [place] [address] Light Cleaner: Messi Benavideson gap [Moles/Vol]9 mmol/LNormal9-16[facility] HospitalComment on above:Performed By: #### CP, LIP, CDP #### [facility] [address] [place] [address] [place] [address] Light Cleaner: Lakhwinder Tim MDAST [Catalytic activity/Vol]18 U/NBksnwh82-94UbygwAshtabula County Medical CenterComment on above:Performed By: #### CP, LIP, CDP #### [address] [place] [address] Light Cleaner: Lakhwinder Tim MDBilirubin [Mass/Vol]mg/dLNormal0.00-1.20[facility] Medical CenterComment on above:Performed By: #### CP, LIP, CDP #### [address] [place] [address] Light Cleaner: Lakhwinder Tim MDBUN/CRE Jgbtr39Mzargo2-93Eoeez [facility] Comment on above:Performed By: #### CP, LIP, CDP #### [address] [place] [address] Light Cleaner: JUAREZ Benavidesalcium [Mass/Vol]9.2 mg/dLNormal8.6-10.4[facility] County Medical CenterComment on above:Performed By: #### CP, LIP, CDP #### [address] [place] [address] Light Cleaner: JUAREZ Benavideshloride [Moles/Vol]104 mmol/WHhtmel26-188AacksAshtabula County Medical CenterComment on above:Performed By: #### CP, LIP, CDP #### [address] [place], [facility] Light Cleaner: Lakhwinder Tim MDCO2 [Moles/Vol]24 mmol/OUqhpox95-77FxxytAshtabula County Medical CenterComment on above:Performed By: #### TOM WHITEHEAD, CDP #### [address] [place] [address] Light Cleaner: JUAREZ Benavidesreatinine [Mass/Vol]0.6 mg/dLNormal0.50-0.90[facility] County Medical CenterComment on above:Performed By: #### TOM WHITEHEAD, CDP #### [address] [place] [address] Light Cleaner: Lakhwinder Tim MDGFR/1.73 sq M.predicted among non-blacks MDRD (S/P/Bld) [Vol rate/Area]mL/min/{1.73_m2}Normal>60As[facility] County Medical CenterComment on above:Result Comment: These results are not intended for [...] or following therapy that affects renal tubular secretion.Performed By: #### TOM WHITEHEAD, CDP #### [address] [place], [facility] Light Cleaner: Lakhwinder Tim MDGlucose [Mass/Vol]86 mg/sNYjootr90-98Uyuyv [facility]'S Medical CenterComment on above:Performed By: #### TOM WHITEHEAD, CDP #### [address] [place] [id number] Light Cleaner: Lakhwinder Tim MDPotassium [Moles/Vol]3.8 mmol/LNormal3.7-5.3MSelect Medical [facility] HospitalComment on above:Performed By: #### VENTURA LIP, CDP #### [address] [place], [place] 526[address]83 Light Cleaner: PARUL Benavidesrotein [Mass/Vol]7.6 g/dLNormal6.6-8.7As[facility] County Medical CenterComment on above:Performed By: #### VENTURA, LIP, CDP #### [address] [place], [place] 113[address]83 Light Cleaner: ADDISON Benavidesodium [Moles/Vol]137 mmol/GCwaagd482-893FrzqkAshtabula County Medical CenterComment on above:Performed By: #### TOM WHITEHEAD, CDP #### [address] [place], [place] 820[address]83 Light Cleaner: Lakhwinder Tim MDUrea nitrogen [Mass/Vol]9 mg/dLNormal6-20MerMemorial [facility] HospitalComment on above:Performed By: #### VENTURA LIP, CDP #### [address] [place], [place] 1034683 Light Cleaner: Lakhwinder Tim MDLactic Acidon 46-34-6354Nixxgvn (BldV) [Moles/Vol] 0.9 mmol/L0.5 - 2.2 mmol/LBON [facility]'BLENESS HOSPITALLactate [Moles/Vol]0.9 mmol/L Normal0.5-2.2[facility]ercCity [facility] HospitalComment on above:Performed By: #### VENTURA LIP, CDP #### [address] [place], [place] 368[address]83 Light Cleaner: Lakhwinder Tim MDLipaseon 68-88-1346Gxifkc [Catalytic activity/Vol] 17 U/L13 - 60 U/LBON [facility]'BLEN[facility] HOSPITALLipase [Catalytic activity/Vol]17 U/L Lyfvfl00-70RgpucAshtabula County Medical CenterComment on above:Performed By: #### VENTURA LIP, CDP #### [address] [place], [place] [id number] Light Cleaner: GUERO Benavidesicroscopic Urinalysison 54-59-5760Uioiphyspg cells LM.HPF (Urine sed) [#/Area]0 TO 2BON [facility]'BLENESS HOSPITALRBC LM.HPF (Urine sed) [#/Area]0 TO 2BON [facility]'BLENESS HOSPITALWBC LM.HPF (Urine sed) [#/Area]None [facility]ERT[facility] CAMPUSBON SECUNIVERSITY H[facility] MED[facility] CENTERNo Panel Informationon [id number] [facility] HOSPITALUA w/Reflex Cultureon 10-91-3741Wuiiuipms, SemiQt,UrNegativeNormalNEGMercy Connecticut Children'S Medical CenterComment on above:Performed By: #### CDP #### [address] [place] [address] Light Cleaner: Kenn Benavides, UrineTRACEAbMarion Hospital Comment on above:Performed By: #### CDP #### [facility] [address] [place] [address] Dr. [place], [place] [id number] Light Cleaner: JUAREZ Benavideslarity (U)ClearNormalCLEARINOVA LOUDOUN HOSPITALComment on above:Performed By: #### CDP #### [address] [place], [place] [address]83 Light Cleaner: JUAREZ Benavidesolor (U)YellowNormalYELINOVA LOUDOUN HOSPITAL Comment on above:Performed By: #### CDP #### [facility] [address] [place] [address] Dr. [place], [place] 7180083 Light Cleaner: Lakhwinder Tim MDGlucose Ql (U)NegativeNormalNEGMercy Connecticut Children'S Medical CenterComment on above:Performed By: #### CDP #### [address] [place] [address] Light Cleaner: Lakhwinder Tim MDKetones Ql (U)NegativeNormalNEGMercy Connecticut Children'S Medical CenterComment on above:Performed By: #### CDP #### [facility] [address] [place] [address] [place] [address] Light Cleaner: Lakhwinder Tim MDLeukocyte esterase Test strip Ql (U)NegativeNormal NEGBON SECOURS SUMMA [facility]ALTH BARBERTON CAMPUSComment on above:Performed By: #### CDP #### [address] [place] [address] Light Cleaner: Lakhwinder Tim MDNitrite,UrNegativeNormalNEGAshtabula County Medical Center Comment on above:Performed By: #### CDP #### [address] [place] [address] Light Cleaner: JENNIFER Benavides,Ur6.3Tamoct1.0-9.0As[facility] County Medical CenterComment on above:Performed By: #### CDP #### [address] [place] [address] Light Cleaner: Randolph Benavides Ql (U)NegativeNormalNEGAshtabula County Medical CenterComment on above:Performed By: #### CDP #### [address] [place] [address] Light Cleaner: ADDISON Benavidespec. [place],Ur1.536Lmhcyd1.010-1.020Ashtabula County Medical CenterComment on above:Performed By: #### CDP #### [address] [place] [address] Light Cleaner: Lakhwinder Tim MDUrobilinogen,UrNormalNormal0.0-1.0As[facility] County Medical CenterComment on above:Performed By: #### CDP #### [address] [place] [address] Light Cleaner: BHASKAR Benavides NON OB TRANSVAGINAL W DOPPLERon [id number] NON OB TRANSVAGINAL W DOPPLEREXAMINATION: TRANSVAGINAL PELVIC ULTRASOUND WITH DOPPLER 03/17/2024 TECHNIQUE: [...] Signed by: Carlos Tatum MD 03/17/24 Final resultNormalMercy Connecticut Children'S Medical CenterUrinalysis with Reflex to Cultureon [id number] Ql (U)NegativeNEGATIVEBON [facility] TextronicsGlucose Test strip (U) [Mass/Vol]NegativeNEGATIVE mg/dLBON [facility] TextronicsHemoglobin Auto test strip Ql (U)TRACEAbnormalNEGATIVEINOVA LOUDOUN HOSPITAL Interpretation and review of laboratory resultsAbnormalBON [facility] Ketones (U) [Mass/Vol]NegativeNEGATIVE mg/dLBON [facility]BLEN[facility] HOSPITALNitrite Ql (U)NegativeNEGATIVEBON [facility]BLEN[facility] HOSPITALpH (U)6.5 [pH]5.0 - 9.0BON [facility] HOSPITALProtein (U) [Mass/Vol]NegativeNEGATIVE mg/dLBON [facility] Specific gravity (U) [Rel density]1.0151.010 - 1.020B[facility] Urobilinogen Qn (U)Normal0.0 - 1.0 EU/dLBON [facility]BLEN[facility] HOSPITALBON SECUNIVERSITY HOSPITALS [facility] MEDICAL CENTERUrinalysis,Microon [id number] cells LM Ql (Urine sed)0 TO 6Lcofaw8-16DvafaAshtabula County Medical CenterComment on above:Performed By: #### CDP #### [facility] [address] [place] [address] Light Cleaner: Zulay Benavides RBC's0 TO 5Rlweqx7-3BbjguSelect Medical Specialty Hospital [facility] Comment on above:Performed By: #### CDP #### [facility] [address] [place] [address] Light Cleaner: Zulay Benavides WBC'sNoneNormal0-5[facility] Comment on above:Performed By: #### CDP #### [facility] [address] [place] [address] Light Cleaner: JASMYNE Benavides-CoV-2on [id number]-CoV-2 (COVID-19) RNA MARICEL+probe Ql (Unsp spec)DetectedAbnormalNOTDETMSelect Medical Specialty Hospital - Columbus SouthComment on above:Result Comment: Rapid NAAT: The specimen is POSITIVE [...] this assay. Fact sheet for Healthcare Providers: https://www.fda.gov/media/201816/download Fact sheet for Patients: https://www.fda.gov/media/103674/download Methodology: Isothermal Nucleic Acid Amplification Results reported to the appropriate Health DepartmentPerformed By: #### JERALD BIGGS #### [facility] [address] [place] [address] Light Cleaner: KENN Benavides CULTUREon 09-26-9786Qudxrmec identified Aer cx Nom (Bld)SPECIMEN NOTES SUBOPTIMAL VOLUME OF BLOOD COLLECTED, RESULTS MAY BE AFFECTED. CULTURE RESULTS NO GROWTH 5 DAYSNormalProKnox Community Hospitalca Grapevine HospitalComment on above:Performed By: #### CBCA, 43979-7, PINR, 33960-2, CMP #### [facility] ([id number]) [address] [facility], [address] [place], [place] [address]Xkunnlrz identified Aer cx Nom (Bld)CULTURE RESULTS NO GROWTH 5 DAYSNormalProMedica Grapevine HospitalCBC AND AUTO DIFFon 02-07-2024 ABSOLUTE BASOPHIL0.0 X10E9/LNormal0.0-0.2ProMedica [facility]rapevine HospitalComment on above:Performed By: #### 2823-3 #### [facility] ([id number]) [address] [address], [address] [place], [place] [address]HIVCNAIW NEUTROPHIL3.0 X10E9/LNormal1.5-6.6ProKnox Community Hospitalca Grapevine HospitalComment on above:Performed By: #### 2823-3 #### [facility] ([id number]) [address] [facility] [address], [address] [place], [place] [address]Mxocbhpzt/100 WBC (Bld)0.4 %NormalProAccess Hospital Dayton Hospital Comment on above:Performed By: #### 2823-3 #### [facility] ([id number]) [address] [facility] [address], [address] [place], [place] [address]Vfoxwjdbpwf (Bld) [#/Vol]0.1 10*3/uLNormal0.0-0.4ProAccess Hospital Dayton HospitalComment on above:Performed By: #### 2823-3 #### [facility] ([id number]) [address], [address] [place], [place] [address]Kpxckhtlzfk/100 WBC (Bld)1.4 %NormalMarietta Osteopathic Clinic Comment on above:Performed By: #### 2823-3 #### [facility] ([id number]) [address], [address] [place], [place] [address]Xyntcqlkhga distribution width (RBC) [Ratio]16.3 %High11.5-15.0 [facility]ica [facility]rapevine HospitalComment on above:Performed By: #### 2823-3 #### [facility] ([id number]) [address], [address] [place], [place] [address]Spouqklmbt (Bld) [Volume fraction]32.5 %Jlf13-32LwfIttmsh Toledo HospitalComment on above:Performed By: #### 2823-3 #### [facility] ([id number]) [address], [address] [place], [place] [address]Blpzfylojw (Bld) [Mass/Vol]10.8 g/dLLow11.7-15.5ProMedMercy Health Urbana Hospital HospitalComment on above:Performed By: #### 2823-3 #### [facility] ([id number]) [address], [address] [place], [place] [address]Tbtjdheatev (Bld) [#/Vol]2.2 10*3/uLNormal1.0-3.5PParma Community General Hospital HospitalComment on above:Performed By: #### 2823-3 #### [facility] ([id number]) [address], [address] [place], [place] [address]Pfgvhomgwrc/100 WBC (Bld)39.2 %NormalMarietta Osteopathic Clinic Comment on above:Performed By: #### 2823-3 #### [facility] ([id number]) [address], [address] [place], [place] [address]CHE (RBC) [Entitic mass]28.2 xyGayygj74-66IotIsvift [place] HospitalComment on above:Performed By: #### 2823-3 #### [facility] ([id number]) [address], [address] [place] [address]IACP (RBC) [Mass/Vol]33.4 g/eMXlybye24-06XymHztmyk [facility] HospitalComment on above:Performed By: #### 2823-3 #### [facility] ([id number]) [address], [address] [place], [place] [address]WIO (RBC) [Entitic vol]85 oFHkhwbc27-120RniSftrhl [place]vine HospitalComment on above:Performed By: #### 2823-3 #### [facility] ([id number]) [address], [address] [place] [address]Lrbwiwymc (Bld) [#/Vol]0.4 10*3/uLNormal0-0.9ProKnox Community Hospitalca [facility] HospitalComment on above:Performed By: #### 2823-3 #### [facility] ([id number]) [address], [address] [place], [place] [address]Cnwqbktnb/100 WBC (Bld)7.0 %NormalMarietta Osteopathic Clinic Comment on above:Performed By: #### 2823-3 #### [facility] ([id number]) [address], [address] [place], [place] [address]Jygiaznblml/100 WBC (Bld)52.0 %NormalMarietta Osteopathic Clinic Comment on above:Performed By: #### 2823-3 #### [facility] ([id number]) [address], [address] [place], [place] [address]Mmoxvxtk mean volume (Bld) [Entitic vol]8.0 fLNormal7-12 [facility]Medica [facility] HospitalComment on above:Performed By: #### 2823-3 #### [facility] ([id number]) [address], [address] [place], [place] [address]Opvlfyyjw (Bld) [#/Vol]224 10*3/fEXdvcwa970-771SwbZnaamv [place] HospitalComment on above:Performed By: #### 2823-3 #### [facility] ([id number]) [address], [address] [place], [place] [address]EPS COUNT3.84 X10E12/LNormal3.80-5.20Pro[facility] Comment on above:Performed By: #### 2823-3 #### [facility] ([id number]) [address], [address] [place], [place] [address]SKU (Bld) [#/Vol]5.7 10*3/uLNormal4.0-11.0ProDunlap Memorial HospitalComment on above:Performed By: #### 2823-3 #### [facility] ([id number]) [address], [address] [place], [place] [address]VBS with Auto Differentialon 70-27-1659Esruvdmwo (Bld) [#/Vol] [facility] HEALTHBasophils/100 WBC (Bld)1 %0 - 2 %[facility] HOSPITALEosinophils (Bld) [#/Vol]0.12 10*3/uLBON SECOURS MERCY [facility]ALTH Eosinophils/100 WBC (Bld)3 %1 - 4 %[facility] HEALTHErythrocyte distribution width (RBC) [Ratio]15.0 %High11.8 - 14.4 %[facility] Hematocrit (Bld) [Volume fraction]35.2 %Low36.3 - 47.1 %[facility] Hemoglobin (Bld) [Mass/Vol]11.4 g/dLLow11.9 - 15.1 g/dLB[facility] Immature granulocytes (Bld) [#/Vol][facility] HEALTHImmature granulocytes/100 WBC (Bld)0 %0[facility] HEALTHInterpretation and review of laboratory resultsAbnormalB[facility]RS MERCY HEALTHLymphocytes/100 WBC (Bld)38 %24 - 43 %[facility] HEALTHLymphocytes/100 WBC (Bld)1.69 %[facility] HOSPITALH (RBC) [Entitic mass]28.2 pg25.2 - 33.5 pgUVA HEALTH UNIVERSITY HOSPITALHC (RBC) [Mass/Vol]32.4 g/dL28.4 - 34.8 g/dLBON KETTER[facility] HEALTH PREBLEV (RBC) [Entitic vol]87.1 fL82.6 - 102.9 fLINOVA LOUDOUN HOSPITALMonocytes/100 WBC (Bld)8 %3 - 12 %B[facility] HOSPITALMonocytes/100 WBC (Bld)0.36 %INOVA LOUDOUN HOSPITALNeutrophils/100 WBC (Bld)50 %36 - 65 %IN[facility] L[facility]DOUN HOSPITALNucleated RBC/100 WBC (Bld) [Ratio]0.0 %0.0 per 100 WBCBON OHIOHEALTH O'BLENESS HOSPITALPlatelet mean volume (Bld) [Entitic vol]10.3 fL8.1 - 13.5 fLCOMMUNITY HEALTH SYSTEMS HEALTHPlatelets (Bld) [#/Vol]228 10*3/uLBON OHIOHEALTH O'BLENESS HOSPITALRBC (Bld) [#/Vol]4.04 10*6/uL3.95 - 5.11 m/uLINOVA LOUDOUN HOSPITALSegmented neutrophils/100 WBC (Bld)2.23 %INOVA LOUDOUN HOSPITALWBC other (Bld) [#/Vol] 4.4BON SECVERNON MEMORIAL HOSPITALCBC with Diffon 02-07-2024 Abs. Basophil<0.47Kspkvk4.00-0.20As[facility] County Medical CenterComment on above:Performed By: #### CP, LIP, CDP #### [facility] [address] [place] [address] Light Cleaner: Ben Benavides.Imm.Granulocyte<0.17Bpxhug6.00-0.30[facility] County Medical CenterComment on above:Performed By: #### CP, LIP, CDP #### [facility] [address] [place] [address] Light Cleaner: Ben Benavides.Neutrophil (Seg)2.23 k/uLNormal1.50-8.10[facility] HospitalComment on above:Performed By: #### CP, LIP, CDP #### [address] [place] [address] Light Cleaner: Lakhwinder Tim MDBasophils/100 WBC (Bld)1 %Normal0-2[facility] HospitalComment on above:Performed By: #### CP, LIP, CDP #### [address] [place] [address] Light Cleaner: Lakhwinder Tim MDEosinophils (Bld) [#/Vol]0.12 10*3/uLNormal 0.00-0.44[facility] HospitalComment on above:Performed By: #### VENTURA, LIP, CDP #### [address] [place], [place] [address] Light Cleaner: ISH Benavidesosinophils/100 WBC (Bld)3 %Normal1-4[facility] County Medical CenterComment on above:Performed By: #### CP, LIP, CDP #### [address] [place] [address] Light Cleaner: Lakhwinder Tim MDErythrocyte distribution width (RBC) [Ratio]15.0 % High11.8-14.4[facility] HospitalComment on above:Performed By: #### CP, LIP, CDP #### [address] [place] [address] Light Cleaner: Lakhwinder Tim MDHematocrit (Bld) [Volume fraction]35.2 %Low 36.3-47.1[facility] HospitalComment on above:Performed By: #### CP, LIP, CDP #### [address] [place], [place] [address] Light Cleaner: Lakhwinder Tim MDHemoglobin (Bld) [Mass/Vol]11.4 g/dLLow11.9-15.1 [facility] Medical CenterComment on above:Performed By: #### CP, LIP, CDP #### [address] [place], [place] [address] Light Cleaner: Rito Benavidesmature granulocytes/100 WBC (Bld)0 %Lhjtkm0Lyjxp [facility]iffin HospitalComment on above:Performed By: #### CP, LIP, CDP #### [address] [place], [place] [address] Light Cleaner: Lakhwinder Tim MDLymphocytes (Bld) [#/Vol]1.69 10*3/uLNormal 1.10-3.70[facility] County Medical CenterComment on above:Performed By: #### VENTURA, LIP, CDP #### [address] [place], [facility] Light Cleaner: Oniel Benavidesmphocytes/100 WBC (Bld)38 %Ivdjhs13-26YvislAshtabula County Medical CenterComment on above:Performed By: #### CP, LIP, CDP #### [address] [place], [place] [address] Light Cleaner: GUERO BenavidesCH (RBC) [Entitic mass]28.2 lmPykhrt64.2-33.5 [facility] HospitalComment on above:Performed By: #### CP, LIP, CDP #### [address] [place], [place] [address] Light Cleaner: MILDRED BenavidesC (RBC) [Mass/Vol]32.4 g/bKJpngth07.4-34.8[facility] HospitalComment on above:Performed By: #### CP, LIP, CDP #### [address] [place] [address] Light Cleaner: GUERO BenavidesCV (RBC) [Entitic vol]87.1 aVPivbwn99.6-102.9 [facility] Medical CenterComment on above:Performed By: #### CP, LIP, CDP #### [address] [place] [address] Light Cleaner: GUERO Benavidesonocytes (Bld) [#/Vol]0.36 10*3/uLNormal0.10-1.20 [facility] CenterComveterans affairs ann [facility] on above:Performed By: #### CP, LIP, CDP #### [address] [place] [address] Light Cleaner: GUERO Benavidesonocytes/100 WBC (Bld)8 %Normal3-12[facility] County Medical CenterComment on above:Performed By: #### CP, LIP, CDP #### [address] [place] [address] Light Cleaner: Lakhwinder Tim MDNeutrophil (Seg)50 %Pdmcki08-77WbexyAshtabula County Medical CenterComment on above:Performed By: #### CP, LIP, CDP #### [address] [place] [address] Light Cleaner: Lakhwinder Tim MDNRBC Automated0.0 per 100 WBCNormal0.0[facility] County Medical CenterComment on above:Performed By: #### CP, LIP, CDP #### [address] [place] [address] Light Cleaner: PARUL Benavideslatelet mean volume (Bld) [Entitic vol]10.3 fL Normal8.1-13.5[facility] County Medical CenterComment on above:Performed By: #### CP, LIP, CDP #### [address] [place], [place] [address] Light Cleaner: Indigo Benavidesfall river [facility] ([facility]) [#/Vol]228 10*3/pSVbdjut489-856 [facility] HospitalComment on above:Performed By: #### VENTURA, LIP, CDP #### [facility] [address] [place], [place] [address] Light Cleaner: CHICA Benavides ([facility]) [#/Vol]4.04 10*6/uLNormal3.95-5.11[facility] HospitalComment on above:Performed By: #### VENTURA LIP, CDP #### [facility] [address] [place] [address] Light Cleaner: JACKIE Benavides ([facility]) [#/Vol]4.4 10*3/uLNormal3.5-11.3MSelect Medical [facility], [place] HospitalComment on above:Performed By: #### TOM WHITEHEAD, CDP #### [facility] [address] [place] [address] Light Cleaner: JUAREZ BenavidesOMPREHENSIVE METABOLIC PANELon 75-25-4157Nxhqnrk [Mass/Vol]3.7 g/dLNormal3.2-5.3PParma Community General Hospital HospitalComment on above: Performed By: #### 2823-3 #### [facility] ([id number]) [address], [address] [place], [place] [address]BTS [Catalytic activity/Vol]45 U/WIwcrbv52-888WcxHexhli Hewtit HospitalComment on above:Performed By: #### 2823-3 #### [facility] ([id number]) [address] [address], [address] [place], [place] [address]MQI [Catalytic activity/Vol]7 U/LNormal0-31[facility] HospitalComment on above:Performed By: #### 2823-3 #### [facility] ([id number]) [address], [address] [place], [place] [address]Zrnes gap [Moles/Vol]10 mmol/LNormal5-15[facility] HospitalComment on above:Performed By: #### 2823-3 #### [facility] ([id number]) [address] [facility], [address] [place], [place] [address]TUP [Catalytic activity/Vol]12 U/LNormal0-41[facility] HospitalComment on above:Performed By: #### 2823-3 #### [facility] ([id number]) [address], [address] [place], [place] [address]Fnpjjqrul [Mass/Vol]0.3 mg/dLNormal0.3-1.2[facility] HospitalComment on above:Performed By: #### 2823-3 #### [facility] ([id number]) [address] [facility] [address] [place], [place] [address]Xgbtmfr [Mass/Vol]9.1 mg/dLNormal8.5-10.5[facility] HospitalComment on above:Performed By: #### 2823-3 #### [facility] ([id number]) [address], [address] [place], [place] [address]Ynmiojhg [Moles/Vol]107 mmol/PWygtyy76-071JjgUoyzbt [facility] HospitalComment on above:Performed By: #### 2823-3 #### [facility] ([id number]) [address] [place] [address], [address] [place], [place] [address]KO4 [Moles/Vol]25 mmol/TXeqhhf61-59VjoOopnwh [facility] Comment on above:Performed By: #### 2823-3 #### [facility] ([id number]) [address] [address], [address] [place], [place] [address]Xvqnwwfajj [Mass/Vol]0.54 mg/dLNormal0.40-1.00[facility] HospitalComment on above:Result Comment: METHOD TRACEABLE TO IDMS STANDARD Performed By: #### 2823-3 #### [facility] ([id number]) [address], [address] [place], [place] [address]tJPP (CKD-EPI) NON-RACE DEPENDENT>90Normal>59Pro[facility] Dayton HospitalComment on above:Result Comment: Reported eGFR is based on the CKD-EPI 2020 equation that does not use a race coefficient.Performed By: #### 2823-3 #### [facility] ([id number]) [address], [address] [place], [place] [address]Uiqeuyy [Mass/Vol]96 mg/nGPqdflm61-37AceVrdmzbMarietta Osteopathic Clinic Comment on above:Performed By: #### 2823-3 #### [facility] ([id number]) [address], [address] [place], [place] [address]Igxqubsry [Moles/Vol]3.5 mmol/LNormal3.5-5.0ProDunlap Memorial HospitalComment on above:Performed By: #### 2823-3 #### [facility] ([id number]) [address], [address] [place], [place] [address]Lzbncke [Mass/Vol]7.3 g/dLNormal6.0-8.0[facility] Comment on above:Performed By: #### 2823-3 #### [facility] ([id number]) [address], [address] [place], [place] [address]Xuumtt [Moles/Vol]142 mmol/HAvmvws024-466VjqIeenuf [place] HospitalComment on above:Performed By: #### 2823-3 #### [facility] ([id number]) [address], [address] [place], [place] [address]Nzer nitrogen [Mass/Vol]3 mg/dLLow5-23ProDunlap [facility] Hospital Comment on above:Performed By: #### 2823-3 #### [facility] ([id number]) [address], [address] [place], [place] [address]SX ABDOMEN PELVIS W IV CONTRASTon 72-58-6256LW ABDOMEN PELVIS W IV CONTRASTEXAMINATION: CT OF THE ABDOMEN AND PELVIS WITH [...] is surgically absent. The bladder is unremarkable. Peritoneum/Retroperitoneum: There is no free air, free fluid or intraperitoneal inflammatory change. There is no adenopathy. Bones/Soft Tissues: There is no acute fracture or aggressive osseous lesion. IMPRESSION: No acute abdominopelvic abnormality. Interpreted by: Carlos Alejo MD Signed by: Carlos Alejo MD 02/07/24 Final resultNormalMerConnecticut Hospice Abdomen and Pelvis W contrast Alexsander 87-90-3748Js acute abdominopelvic abnormality. [facility] RIS CONSOLIDATEDEXAMINATION: CT OF THE ABDOMEN AND PELVIS WITH [...] is surgically absent. The bladder is unremarkable. Peritoneum/Retroperitoneum: There is no free air, free fluid or intraperitoneal inflammatory change. There is no adenopathy. Bones/Soft Tissues: There is no acute fracture or aggressive osseous lesion. [facility] Carlos Cedeño MD - 02/07/2024 EXAMINATION: CT OF THE [...] is surgically absent. The bladder is unremarkable. Peritoneum/Retroperitoneum: There is no free air, free fluid or intraperitoneal inflammatory change. There is no adenopathy. Bones/Soft Tissues: There is no acute fracture or aggressive osseous lesion. IMPRESSION: No acute abdominopelvic abnormality. [facility] LabsRadiology Study observation (narrative)Filament LabsCT Abdomen and Pelvis W contrast IVOrdered By: Carlos Alejo on 02-07-2024 [facility] Work Phone: comp Metabolic Profon 12-73-7639Cbvelcp [Mass/Vol]4.2 g/dLNormal3.5-5.2[facility]S Medical CenterComment on above:Performed By: #### CP, LIP, CDP #### [address] [place] [address] Light Cleaner: Lakhwinder Tim MDAlbumin/Glob Ratio1.1Sekrvq0.0-2.5[facility] Wild[facility] HospitalComment on above:Performed By: #### CP, LIP, CDP #### [address] [place] [address] Light Cleaner: Sergio Benavideskaline Phos56 U/AJrnpuu45-558Lecad Wildorado HospitalComment on above:Performed By: #### CP, LIP, CDP #### [address] [place] [address] Light Cleaner: Lakhwinder Tim MDALT [Catalytic activity/Vol]7 U/LNormal5-33[facility] HospitalComment on above:Performed By: #### CP, LIP, CDP #### [address] [place] [address] Light Cleaner: Lakhwinder Tim MDAnion gap [Moles/Vol]11 mmol/LNormal9-17[facility] HospitalComment on above:Performed By: #### CP, LIP, CDP #### [address] [place] [address] Light Cleaner: Lakhwinder Tim MDAST [Catalytic activity/Vol]13 U/LNormal<32[facility] HospitalComment on above:Performed By: #### CP, LIP, CDP #### [address] [place] [address] Light Cleaner: Lakhwinder Tim MDBilirubin [Mass/Vol]0.2 mg/dLLow0.3-1.2[facility] HospitalComment on above:Performed By: #### CP, LIP, CDP #### [address] [place] [address] Light Cleaner: Lakhwinder Tim MDBUN/CRE [id number] County Medical CenterComment on above:Performed By: #### TOM WHITEHEAD, CDP #### [address] [place] [address] Light Cleaner: Lakhwinder Tim MDCalcium [Mass/Vol]9.1 mg/dLNormal8.6-10.4MerJohnson Memorial HospitalComment on above:Performed By: #### TOM WHITEHEAD, CDP #### [address] [place], [place] [id number] Light Cleaner: JUAREZ Benavideshloride [Moles/Vol]102 mmol/XZattfo86-884Desgq Tiffin HospitalComment on above:Performed By: #### TOM WHITEHEAD, CDP #### [address] [place], [place] [id number] Light Cleaner: Lakhwinder Tim MDCO2 [Moles/Vol]26 mmol/NBohhes54-21UijnuAshtabula County Medical CenterComment on above:Performed By: #### TOM WHITEHEAD, CDP #### [address] [place], [place] [id number] Light Cleaner: JUAREZ Benavidesreatinine [Mass/Vol]0.5 mg/dLNormal0.5-0.9MerJohnson Memorial HospitalComment on above:Performed By: #### TOM WHITEHEAD, CDP #### [address] [place], [place] [id number] Light Cleaner: Lakhwinder Tim MDGFR/1.73 sq M.predicted among non-blacks MDRD (S/P/Bld) [Vol rate/Area]mL/min/{1.73_m2}Normal>60MerJohnson Memorial HospitalComment on above:Result Comment: These results are not intended for [...] or following therapy that affects renal tubular secretion.Performed By: #### TOM WHITEHEAD, CDP #### [address] [place], [place] [address]83 Light Cleaner: Lakhwinder Tim MDGlucose [Mass/Vol]83 mg/eIDxwqxs57-02Zjeyq [facility]ado HospitalComment on above:Performed By: #### VENTURA LIP, CDP #### [address] [place] [address] Light Cleaner: Lakhwinder Tim MDPotassium [Moles/Vol]4.1 mmol/LNormal3.7-5.3Mer[facility] Wildorado HospitalComment on above:Performed By: #### VENTURA LIP, CDP #### [address] [place] [address] Light Cleaner: Lakhwinder Tim MDProtein [Mass/Vol]7.7 g/dLNormal6.4-8.3Mer[facility] Wildorado HospitalComment on above:Performed By: #### VENTURA LIP, CDP #### [address] [place] [address] Light Cleaner: Lakhwinder Tim MDSodium [Moles/Vol]139 mmol/XFwgggx281-327Yaksk Tiffin HospitalComment on above:Performed By: #### VENTURA, LIP, CDP #### [address] [place] [address] Light Cleaner: Lakhwinder Tim MDUrea nitrogen [Mass/Vol]4 mg/dLLow6-20[facility] HospitalComment on above:Performed By: #### CP, LIP, CDP #### [address] [place], [place] 8[address]683 Light Cleaner: Lakhwinder Tim [facility] WOODWARDomprehensive Metabolic Panelon [id number] [Mass/Vol]4.2 g/dL3.5 - 5.2 g/dLBON SECOURS DashwireAlbumin/Globulin [Mass ratio]1.2 {ratio}1.0 - 2.5B[facility]Y HEALTHALP [Catalytic activity/Vol]56 U/L35 - 104 U/LBON SECOURS W[facility]ORTH-RITTMAN HOSPITALPF Management Services HEALTHALT [Catalytic activity/Vol]7 U/L5 - 33 U/LBON SECOURS [facility]TMAN [email or web address] gap [Moles/Vol]11 mmol/L9 - 17 mmol/LBON [facility]RS [facility]ITALY HEALTHAST [Catalytic activity/Vol]13 U/LNINF - 32 U/LBON SECOURS [facility] HEALTHBilirubin [Mass/Vol]0.2 mg/dLLow0.3 - 1.2 mg/dLB[facility]RS [facility] HEALTHCalcium [Mass/Vol]9.1 mg/dL8.6 - 10.4 mg/dLBON SECCHRISTUS [facility] Textronics Chloride [Moles/Vol]102 mmol/L98 - 107 mmol/LBON [facility]CCHRISTUS [facility]IG[facility] HEALTHCO2 [Moles/Vol]26 mmol/L20 - 31 mmol/LBON [facility]ST[facility] TextronicsCreatinine [Mass/Vol] 0.5 mg/dL0.5 - 0.9 mg/dLB[facility] SECOURS DashwireEst, Glom Filt Rate- PINFBON [facility] O'BLENESS HOSPITALComment on above: These results are not intended [...] therapy that affects renal tubular secretion. Glucose [Mass/Vol]83 mg/dL70 - 99 mg/dLBON [facility]ITT[facility] MEDICAL CENTERSHIFTInterpretation and review of laboratory resultsAbnormalBON SECOURS GigsTime HEALTHPotassium [Moles/Vol]4.1 mmol/L3.7 - 5.3 mmol/LBON SECOURS [facility] HOSPITALPF Management Services HEALTHProtein [Mass/Vol] 7.7 g/dL6.4 - 8.3 g/dLBON SECSAN [facility] DashwireSodium [Moles/Vol]139 mmol/L135 - 144 mmol/LBON [facility] O'BLENESS HOSPITALUrea nitrogen [Mass/Vol]4 mg/dLLow6 - 20 mg/dL BON [facility] O'BLENESS HOSPITALUrea nitrogen/Creatinine [Mass ratio]8 mg/mgLow9 - 20BON [facility] O'BLENESS HOSPITALLIPASEon 34-16-6540Snnquf [Catalytic activity/Vol]11 U/L Vnvzes79-59CsaImsjwn German HospitalComment on above:Performed By: #### CBCA, 04341-6, PINR, 40373-0, CMP #### [facility] ([id number]) [address] [place] [address], [address] [place], [place] [address]Unifxg Acidon 56-80-1167Hxxfbsv (BldV) [Moles/Vol]0.6 mmol/L0.5 - 2.2 mmol/LBON FALL RIVER HOSPITALLactate [Moles/Vol] 0.6 mmol/LNormal0.5-2.2MercConnecticut HospiceComment on above:Performed By: #### VENTURA, LIP, CDP #### [facility] [address] [place] [address] Light Cleaner: Lakhwinder Tim MDLipaseon 92-24-7435Tchssf [Catalytic activity/Vol] 19 U/L13 - 60 U/LBON [facility] O'BLENESS HOSPITALLipase [Catalytic activity/Vol]19 U/L Breesb62-00UcsumAshtabula County Medical CenterComment on above:Performed By: #### VENTURA, LIP, CDP #### [facility] [address] [place] [address] Light Cleaner: GUERO Benavidesicroscopic Urinalysison 16-68-6861Utsvipiegz cells LM.HPF (Urine sed) [#/Area]0 TO 2B[facility] SEC[facility]RS [facility] BARBERTON CAMPUSRBC LM.HPF (Urine sed) [#/Area]0 TO 2B[facility]BERTON CAMPUSWBC LM.HPF (Urine sed) [#/Area]0 TO 2B[facility] CENTERNo Panel Informationon [id number] [facility]ALTH O'BLENESS HOSPITALTroponin I.cardiac High sensitivity method [Mass/Vol]on HOUR TROP I, HIGH SENSITIVITY<2Normal<16ProKnox Community Hospitalca Grapevine HospitalComment on above:Performed By: #### CBCA, 75316-8, PINR, 72678-9, CMP #### [facility] ([id number]) [address], [address] [place], [place] [address]MNQCWZLF I, HIGH SENSITIVITY<2Normal<16[facility] Comment on above:Performed By: #### CBCA, 55017-3, PINR, 24884-2, CMP #### [facility] ([id number]) [address], [address] [place], [place] [address]IO w/Reflex Cultureon 41-63-8064Emycfxigg, SemiQt,UrNegative NormalNEGMerJohnson Memorial HospitalComment on above:Performed By: #### KALYAN, UAX #### [facility] [address] [place] [address] [place] [address] Light Cleaner: Kenn Benavides, UrineNegativermalMercy Health St. [facility] Comment on above:Performed By: #### KALYAN, UAX #### [facility] [address] [place] [address] Dr. [place], [place] [id number] Light Cleaner: Jennifer Benavidesrity (U)ClearNormalCLEARAshtabula County Medical Center Comment on above:Performed By: #### KALYAN, UAX #### [facility] [address] [place] [address] Light Cleaner: JUAREZ Benavidesolor (U)YellowNormalYUniversity Hospitals Parma Medical Center Comment on above:Performed By: #### WILLARDO, UAX #### [facility] [address] [place] [address] Light Cleaner: Lakhwinder Tim MDGlucose Ql (U)NegativeNormalNEGAshtabula County Medical CenterComment on above:Performed By: #### UMICAO, UAX #### [facility] [address] [place] [address] [place] [address] Light Cleaner: Lakhwinder Tim MDKetones Ql (U)NegativeNormalNEGMercy Wildorado HospitalComment on above:Performed By: #### UMICAO, UAX #### [facility] [address] [place] [address] [place] [address] Light Cleaner: Lakhwinder Tim MDLeukocyte esterase Test strip Ql (U)NegativeNormal NEGMercy Connecticut Children'S Medical CenterComment on above:Performed By: #### KALYAN, UAX #### [address] [place] [address] Light Cleaner: Ciro Benavidestrite,UrNegativeNormalNEGOhiohealth Berger Hospital on above:Performed By: #### KALYAN, UAX #### [facility] [address] [place] [address] [place] [address] Light Cleaner: PARUL Benavides,Ur7.8Wmgupv9.0-9.0[facility] Medical Centercy [facility] Children'S Medical CenterComment on above:Performed By: #### KALYAN, UAX #### [address] [place], [place] [address]83 Light Cleaner: Randolph Benavides Ql (U)NegativeNormalNEGMercy Wildorado HospitalComment on above:Performed By: #### KALYAN, UAX #### [facility] [address] [place] [address] [place] [address] Light Cleaner: Luis Fernando Benavides. [place],Ur1.344Npztfq7.010-1.020Mer[facility] Children'S Medical CenterComment on above:Performed By: #### WILLARDO, UAX #### [facility] [address] [place] [address] [place] [address] Light Cleaner: Blaze Benavidesbilinogen,UrNormalNormal0.0-1.0Mercy Wildorado HospitalComment on above:Performed By: #### KALLIE BIGGSX #### [facility] [address] [place] [address] Light Cleaner: Lakhwinder Tim MDURN KARI MENONon 99-33-7461FNESNGGXI LYNSEY NegativeNormalNEGProMedica Grapevine HospitalComment on above:Performed By: #### CBCA, 30573-3, PINR, 72546-3, CMP #### [facility] ([id number]) [address], [address] [place], [place] [address]DJBHR/HGB NURTraceAbnormalNEGProMedica Grapevine HospitalComment on above:Performed By: #### CBCA, 53944-1, PINR, 03588-9, CMP #### [facility] ([id number]) [address], [address] [place], [place] [address]PTYXESL NURNegativeNormalNEGProMedica Grapevine HospitalComment on above:Performed By: #### CBCA, 09367-9, PINR, 01456-9, CMP #### [facility] ([id number]) [address], [address] [place], [place] [address]UQOUDMO NURNegativeNormalNEGProMedica Grapevine HospitalComment on above:Performed By: #### CBCA, 86028-0, PINR, 50657-1, CMP #### [facility] ([id number]) [address], [address] [place], [place] [address]PUQNDSZNW ESTERASE NURNegativeNormalNEGProMedica Grapevine Hospital Comment on above:Performed By: #### CBCA, 97047-1, PINR, 93845-2, CMP #### [facility] ([id number]) [address], [address] [place], [place] [address]QYHDBDT NURNegativeNormalNEGProMedica Grapevine HospitalComment on above:Performed By: #### KIM, 67989-2, PINR, 29020-1, CMP #### [facility] ([id number]) [address], [address] [place], [place] [address]BY NUR7.3Xkiyph2.0-8.5ProMedica Grapevine HospitalComment on above: Performed By: #### KIM, 98216-8, PINR, 75306-6, CMP #### [facility] ([id number]) [address], [address] [place], [place] [address]EPOEZWD NURNegativeNormalNEGProMedica Grapevine HospitalComment on above:Performed By: #### KIM, 13248-0, PINR, 68636-6, CMP #### [facility] ([id number]) [address], [address] [place], [place] [address]JTLIYZDK GRAVITY NUR1.941Guhate9.003-1.035ProMedica Grapevine HospitalComment on above:Performed By: #### KIM, 63097-1, PINR, 47594-4, CMP #### [facility] ([id number]) [address], [address] [place], [place] [address]BAVYDXAJGBNJ NUR0.2 eu/dLNormal<1.1PDetwiler Memorial Hospital Comment on above:Performed By: #### KIM, 27935-4, PINR, 46328-0, CMP #### [facility] ([id number]) [address], [address] [place], [place] [address] PELVIC WITH TRANSVAGINAL AND DUPLEXon 57-87-6709DB PELVIC WITH TRANSVAGINAL AND DUPLEXUS PELVIC WITH TRANSVAGINAL AND DUPLEX CLINICAL INFORMATION: [...] venous outflow structures of the ovaries with arterialand venous spectral waveforms obtained and reviewed in view of the clinical history of right lower quadrant pain. Duplex spectral Doppler document arterial and venous spectral waveforms documented within the majorarterial inflow and venous outflow of both ovaries. [...] by Dwayne Cifuentes MD on 02/07/2024 10:56 PMNormalProMedica Hewitt HospitalUrinalysis with Reflex to Cultureon 40-36-1383Cujgjhlxw Ql (U)Negative NEGATIVEBON SECOURS MERCY HEALTHClarity (U)ClearClearB[facility]RS MERCY HEALTH Color (U)YellowYellowBON SECOURS MERCY HEALTHGlucose Test strip (U) [Mass/Vol] NegativeNEGATIVE mg/dLB[facility] SECOURS MERCY HEALTHHemoglobin Auto test strip Ql (U) NegativeNEGATIVEB[facility] SECOURS MERCY HEALTHKetones (U) [Mass/Vol]NegativeNEGATIVE mg/dLB[facility]RS MERCY HEALTHLeukocyte esterase Test strip Ql (U)Negative NEGATIVEBON SECOURS MERCY HEALTHNitrite Ql (U)NegativeNEGATIVEBON SECOURS MERCY HEALTHpH (U)7.5 [pH]5.0 - 9.0INOVA LOUDOUN HOSPITALProtein (U) [Mass/Vol] NegativeNEGATIVE mg/dLBON [facility]'BLENESS HOSPITALSpecific gravity (U) [Rel density] 1.0101.010 - 1.020INOVA LOUDOUN HOSPITALUrobilinogen Qn (U)Normal0.0 - 1.0 EU/dLBON [facility]'BL[facility] HOSPITALBON [facility] O'BLENESS HOSPITALUrinalysis,Microon 83-81-0308Drqjseriaw cells LM Ql (Urine sed)0 TO 4Fkyvws7-17HzfsyAshtabula County Medical CenterComment on above:Performed By: #### KALYAN UAX #### [facility] [address] [place] [address] Light Cleaner: Zulay Benavides RBC's0 TO 1Kixknk5-7MwqmhSelect Medical Specialty Hospital [facility] Comment on above:Performed By: #### KALLIE BIGGSX #### [facility] [address] [place], [place] [address] Light Cleaner: Zulay Benavides WBC's0 TO 6Zdqvqo3-1QuqxrAshtabula County Medical Center Comment on above:Performed By: #### KALYAN UAX #### [facility] [address] [place], [place] [address] Light Cleaner: Zulay Benavides collection deviceon 48-74-3493MD EXTRA URINESER EXTRA URINE ORDER IN PROCESSNormalProMedica Hewitt HospitalVaginitis DNA Probeon 55-48-5236HdtirrdXwavljxjEcdcqeBDEWrpbr Tiffin HospitalComment on above:Result Comment: for Anca sp. Method of testing is a DNA probe intended for detection and identification of Anca species, Gardnerella vaginalis, and Trichomonas vaginalis nucleic acid in vaginal fluid specimens from patients with symptoms of vaginitis/vaginosis. Performed By: #### KALYAN, UAX #### [facility] [address] [place] [address] Light Cleaner: Lissa BenavidesiveNormalMercy Health St. [facility] Comment on above:Result Comment: for Gardnerella vaginalisPerformed By: #### KALYAN UAX #### [address] [place] [address] Light Cleaner: Lakhwinder Tim MDTrichomonasNegativeNoDayton Osteopathic Hospital Comment on above:Result Comment: for Trichomonas VaginalisPerformed By: #### KALYAN, UAX #### [address] [place] [address] Light Cleaner: JUAREZ Benavidesult,Bloodon 37-31-1630Agrg,BloodSpecimen Description .BLOOD Special Requests 20ML RAC Culture [...] to and read back by:ROLAND AGUILLON 02/04/2024 @9029 by tech [id number] Report Status FINAL 02/06/2024[facility] Rehabilitation Hospital - DublinComment on above: Performed By: #### BC #### [address] [address] Light Cleaner: Sacha Lai MD [address] [place] [address] Light Cleaner: Lakhwinder Tim MDVaginitis DNA Probeon 38-26-0505Xhwtss.VAGINAL SWABNoSt. Francis HospitalComment on above:Performed By: #### KALYAN UAX #### [address] [place] [address] Light Cleaner: Lakhwinder Tim MDBasic Metabolic Profon 19-02-7166Jqxby gap [Moles/Vol]10 mmol/LNormal9-17As[facility]ab[facility] County Medical CenterComment on above:Performed By: #### CP, LIP, CDP #### [facility] [address] [place] [address] [place] [address] Light Cleaner: Lakhwinder Tim MDBUN/CRE Kqpoc72Rkabka9-67Gmtsv [facility] Comment on above:Performed By: #### CP, LIP, CDP #### [facility] [address] [place] [address] [place] [address] Light Cleaner: JUAREZ Benavidesalcium [Mass/Vol]9.1 mg/dLNormal8.6-10.4Ashtabula County Medical CenterComment on above:Performed By: #### VENTURA, LIP, CDP #### [address] [place] [address] Light Cleaner: JUAREZ Benavideshloride [Moles/Vol]102 mmol/WLbsjzf55-878Vibxm [facility]iffin HospitalComment on above:Performed By: #### VENTURA LIP, CDP #### [address] [place] [address] Light Cleaner: Lakhwinder Tim MDCO2 [Moles/Vol]27 mmol/RWwffhq89-21Ekfrs [facility]in HospitalComment on above:Performed By: #### VENTURA LIP, CDP #### [address] [place] [address] Light Cleaner: JUAREZ Benavidesreatinine [Mass/Vol]0.7 mg/dLNormal0.5-0.9As[facility] County Medical CenterComment on above:Performed By: #### VENTURA, LIP, CDP #### [address] [place], [place] [address] Light Cleaner: Lakhwinder Tim MDGFR/1.73 sq M.predicted among non-blacks MDRD (S/P/Bld) [Vol rate/Area]mL/min/{1.73_m2}Normal>60[facility] HospitalComment on above:Result Comment: These results are not intended for [...] or following therapy that affects renal tubular secretion.Performed By: #### TOM WHITEHEAD, CDP #### [address] [place], [facility] Light Cleaner: Lakhwinder Tim MDGlucose [Mass/Vol]93 mg/pWEqldyb19-73Nivna [facility]'S Medical CenterComment on above:Performed By: #### TOM WHITEHEAD, CDP #### [address] [place], [facility]83 Light Cleaner: PARUL Benavidesotassium [Moles/Vol]3.7 mmol/LNormal3.7-5.3Mparkwood hospitaly Wildorado HospitalComment on above:Performed By: #### TOM WHITEHEAD, CDP #### [address] [place], [place] [address] Light Cleaner: ADDISON Benavidesodium [Moles/Vol]139 mmol/JUvfhoy084-987Pwskd [facility]iffin HospitalComment on above:Performed By: #### TOM WHITEHEAD, CDP #### [address] [place], [facility] Light Cleaner: Lakhwinder Tim MDUrea nitrogen [Mass/Vol]7 mg/dLNormal6-20[facility] HospitalComment on above:Performed By: #### TOM WHITEHEAD, CDP #### [address] [place], [facility]83 Light Cleaner: Lakhwinder Tim [facility] with Diffon 10-42-6266Lai. Basophil<0.03Normal 0.00-0.20[facility] HospitalComment on above:Performed By: #### VENTURA, LIP, CDP #### [address] [place], [place] [address] Light Cleaner: MDAbs. MakaylaImm.Granulocyte<0.41Jvdfdl6.00-0.30MerMemorial Health System [facility] HospitalComment on above:Performed By: #### CP, LIP, CDP #### [address] [place] [address] Light Cleaner: Ben Benavides.Neutrophil (Seg)3.35 k/uLNormal1.50-8.10MerMemorial Health System Marietta [facility] Hospital HospitalComment on above:Performed By: #### VENTURA, LIP, CDP #### [address] [place] [address] Light Cleaner: Lakhwinder Tim MDBasophils/100 WBC (Bld)0 %Normal0-2[facility] Wildorado HospitalComment on above:Performed By: #### CP, LIP, CDP #### [address] [place] [address] Light Cleaner: Lakhwinder Tim MDEosinophils (Bld) [#/Vol]0.10 10*3/uLNormal 0.00-0.44MerMemorial Health System [facility] HospitalComment on above:Performed By: #### VENTURA, LIP, CDP #### [address] [place], [place] [address] Light Cleaner: ISH Benavidesosinophils/100 WBC (Bld)2 %Normal1-4MerMemorial Health System [facility] HospitalComment on above:Performed By: #### VENTURA, LIP, CDP #### [address] [place] [address] Light Cleaner: Lakhwinder Tim MDErythrocyte distribution width (RBC) [Ratio]15.0 % High11.8-14.4MerMemorial Health System [facility] HospitalComment on above:Performed By: #### VENTURA, LIP, CDP #### [address] [place] [address] Light Cleaner: Lakhwinder Tim MDHematocrit (Bld) [Volume fraction]33.6 %Low 36.3-47.1[facility]ercCity Hospital HospitalComment on above:Performed By: #### CP, LIP, CDP #### [address] [place], [facility]83 Light Cleaner: Lakhwinder Tim MDHemoglobin (Bld) [Mass/Vol]11.0 g/dLLow11.9-15.1 [facility] HospitalComment on above:Performed By: #### VENTURA LIP, CDP #### [address] [place] [address] Light Cleaner: Lakhwinder Tim MDImmature granulocytes/100 WBC (Bld)0 %Osfumw5Nozyb [facility] HospitalComment on above:Performed By: #### VENTURA, LIP, CDP #### [address] [place], [facility]83 Light Cleaner: Lakhwinder Tim MDLymphocytes (Bld) [#/Vol]2.20 10*3/uLNormal 1.10-3.70[facility] HospitalComment on above:Performed By: #### VENTURA LIP, CDP #### [address] [place] [address] Light Cleaner: Lakhwinder Tim MDLymphocytes/100 WBC (Bld)35 %Zxrsts29-99Uspzh [facility] HospitalComment on above:Performed By: #### VENTURA, LIP, CDP #### [address] [place], [place] [address]83 Light Cleaner: GUERO BenavidesCH (RBC) [Entitic mass]28.2 rtTmvmst63.2-33.5 [facility] HospitalComment on above:Performed By: #### CP, LIP, CDP #### [address] [place] [address] Light Cleaner: GUERO BenavidesCHC (RBC) [Mass/Vol]32.7 g/xVMrsepd87.4-34.8[facility] HospitalComment on above:Performed By: #### CP, LIP, CDP #### [address] [place], [facility]83 Light Cleaner: GUERO BenavidesCV (RBC) [Entitic vol]86.2 sRXuqqmv64.6-102.9 [facility] Medical CenterComment on above:Performed By: #### VENTURA, LIP, CDP #### [address] [place], [facility]83 Light Cleaner: GUERO Benavidesonocytes (Bld) [#/Vol]0.59 10*3/uLNormal0.10-1.20 [facility] Medical CenterComment on above:Performed By: #### VENTURA, LIP, CDP #### [address] [place], [place] [address] Light Cleaner: GUERO Benavidesonocytes/100 WBC (Bld)9 %Normal3-12[facility] HospitalComment on above:Performed By: #### VENTURA, LIP, CDP #### [address] [place], [facility]83 Light Cleaner: Lakhwinder Tim MDNeutrophil (Seg)54 %Jxwboo30-44Dktzw [facility] HospitalComment on above:Performed By: #### CP, LIP, CDP #### [address] [place], [place] 267[address]83 Light Cleaner: Lakhwinder Tim MDNRBC Automated0.0 per 100 WBCNormal0.0[facility] HospitalComment on above:Performed By: #### CP, LIP, CDP #### [place] [address] [place] [address] Light Cleaner: Bandar Benavides mean volume (Bld) [Entitic vol]10.0 fL Normal8.1-13.5[facility] HospitalComment on above:Performed By: #### VENTURA, LIP, CDP #### [address] [place] [address] Light Cleaner: Martina Benavides (Bld) [#/Vol]261 10*3/iGIreqfn635-377 [facility] HospitalComment on above:Performed By: #### TOM WHITEHEAD, CDP #### [address] [place], [facility]83 Light Cleaner: MAU Benavides (Bld) [#/Vol]3.90 10*6/uLLow3.95-5.11[facility] HospitalComment on above:Performed By: #### TOM WHITEHEAD, CDP #### [address] [place] [address] Light Cleaner: JACKIE Benavides (Bld) [#/Vol]6.3 10*3/uLNormal3.5-11.3[facility] Wildor[facility] HospitalComment on above:Performed By: #### TOM WHITEHEAD, CDP #### [address] [place] [address] Light Cleaner: JOHNSON Benavides w/Reflex Cultureon 50-96-7695Ajngpatej, SemiQt,UrNegativeNormalNEGProvidence Hospital HospitalComment on above:Performed By: #### JERALD BIGGS #### [address] [place] [address] Light Cleaner: Kenn Benavides, UrineNegativeNormalNEGAshtabula County Medical Center Comment on above:Performed By: #### UMICAO, UAX #### [facility] [address] [place], [place] [address] Light Cleaner: JUAREZ Benavideslarity (U)ClearNormalCLEARAshtabula County Medical Center Comment on above:Performed By: #### UMICAO, UAX #### [facility] [address] [place] [address] [place], [place] 9724383 Light Cleaner: JUAREZ Benavidesolor (U)YellowNormalYELMerJohnson Memorial Hospital Comment on above:Performed By: #### WILLARDO, UAX #### [facility] [address] [place] [address] [place], [place] 58[address] Light Cleaner: Lakhwinder Tim MDGlucose Ql (U)NegativeNormalNEGAshtabula County Medical CenterComment on above:Performed By: #### KALYAN, UAX #### [facility] [address] [place] [address] Dr[place], [place] 4823[address] Light Cleaner: Lakhwinder Tim MDKetones Ql (U)NegativeNormalNEGAshtabula County Medical CenterComment on above:Performed By: #### KALYAN, UAX #### [facility] [address] [place] [address] Dr[place], [place] 3938[address] Light Cleaner: Lakhwinder Tim MDLeukocyte esterase Test strip Ql (U)NegativeNormal NEGAshtabula County Medical CenterComment on above:Performed By: #### WILLARDO, UAX #### [facility] [address] [place] [address] Dr[address] [place], [place] 2039[address] Light Cleaner: Lakhwinder Tim MDNitrite,UrNegativeMcKitrick Hospital Comment on above:Performed By: #### WILLARDO, UAX #### [facility] [address] [address] [place], [place] [id number] Light Cleaner: Lakhwinder Tim [facility],Ur8.4Aduixs6.0-9.0Mer[facility] Wildorado HospitalComment on above:Performed By: #### WILLARDO, UAX #### [facility] [address] [place] [address] Dr. [place], [place] [id number] Light Cleaner: PARUL Benavidesrotein Ql (U)NegativeNormalNEGProvidence Hospital HospitalComment on above:Performed By: #### UMMINOO, UAX #### [facility] [address] [place] [address] [place] [place], [place] [id number] Light Cleaner: ADDISON Benavidespec. [place],Ur1.993Dkewqp3.010-1.020[facility] HospitalComment on above:Performed By: #### KALYAN, UAX #### [address] [place], [place] [id number] Light Cleaner: Lakhwinder Tim MDUrobilinogen,UrNormalNormal0.0-1.0[facility] HospitalComment on above:Performed By: #### KALYAN, UAX #### [address] [place], [place] [id number] Light Cleaner: BHASKAR Benavides PELVIS COMPLETEon [id number] PELVIS COMPLETE EXAMINATION: PELVIC ULTRASOUND 02/05/2024 TECHNIQUE: [...] by: Jacob Cotter MD Signed by: Jacob Ctoter MD 02/05/24 Final resultNormalProvidence Hospital HospitalUrinalysis,Microon [id number] TRACEAbBethesda North HospitalComment on above:Performed By: #### UMICAO, UAX #### [facility] [address] [place] [address] [place]. [place], [place] [id number] Light Cleaner: Lakhwinder Tim MDEpithelial cells LM Ql (Urine sed)0 TO 5Nnbnvo1-23 [facility] Medical CenterComment on above:Performed By: #### WILLARDO, UAX #### [facility] [address] [place] [address] Light Cleaner: Kaitlin Benavides StrandsTRACEGood Samaritan HospitalComment on above:Performed By: #### KALYAN, UAX #### [facility] [address] [place], [place] [id number] Light Cleaner: Lakhwinder Tim MDUrine RBC's0 TO 6Gyqlax2-8AixhaSelect Medical Specialty Hospital [facility] Comment on above:Performed By: #### KALYAN, UAX #### [facility] [address] [place] [address] Dr. [place], [place] [id number] Light Cleaner: Lakhwinder Tim MDUrine WBC's0 TO 4Eybjng6-3CfzlgAshtabula County Medical Center Comment on above:Performed By: #### KALYAN, UAX #### [facility] [address] [place], [place] [id number] Light Cleaner: JUAREZ BenavidesBC with Auto Differentialon [id number] (Bld) [#/Vol]0.03 10*3/uLBON [facility] HEALTHBasophils/100 WBC (Bld)0 %0 - 2 %[facility] CAMPUSEosinophils (Bld) [#/Vol]0.13 10*3/uLBON [facility] BARBERT[facility] CAMPUSEosinophils/100 WBC (Bld)2 %1 - 4 %[facility] HEALTHErythrocyte distribution width (RBC) [Ratio]14.9 %High11.8 - 14.4 %[facility] Hematocrit (Bld) [Volume fraction]33.2 %Low36.3 - 47.1 %[facility] Hemoglobin (Bld) [Mass/Vol]10.8 g/dLLow11.9 - 15.1 g/dLBON [facility] Immature granulocytes (Bld) [#/Vol][facility]OSPITALImmature granulocytes/100 WBC (Bld)0 %0[facility]OUN HOSPITALInterpretation and review of laboratory resultsAbnormalBON OHIOHEALTH [facility]'BLENESS HOSPITALLymphocytes/100 WBC (Bld)48 %High24 - 43 %[facility] L[facility]DOUN HOSPITALLymphocytes/100 WBC (Bld)3.20 %[facility]OS[facility]ITALH (RBC) [Entitic mass]27.8 pg25.2 - 33.5 pgUVA HEALTH UNIVERSITY HOSPITALHC (RBC) [Mass/Vol]32.5 g/dL28.4 - 34.8 g/dLBON OHIOHEALTH O'BLEN[facility] HOSPITALMCV (RBC) [Entitic vol]85.6 fL82.6 - 102.9 fLINOVA LOUDOUN HOSPITAL Monocytes/100 WBC (Bld)9 %3 - 12 %[facility]OSPITALMonocytes/100 WBC (Bld)0.63 %[facility] HOSPITALNeutrophils/100 WBC (Bld)41 %36 - 65 %[facility] HOSPITALNucleated RBC/100 WBC (Bld) [Ratio]0.0 %0.0 per 100 WBCINOVA LOUDOUN HOSPITALPlatelet mean volume (Bld) [Entitic vol]9.8 fL8.1 - 13.5 fL [facility]OUN HOSPITALPlatelets (Bld) [#/Vol]275 10*3/uLBON [facility] O'BLENESS HOSPITALRBC (Bld) [#/Vol]3.88 10*6/uLLow3.95 - 5.11 m/uLINOVA LOUDOUN HOSPITAL Segmented neutrophils/100 WBC (Bld)2.78 %[facility] LOUDOUN HOSPITALWBC other (Bld) [#/Vol]6.8[facility]ALTHB[facility] with Diffon [id number]. Basophil0.03 k/uLNormal0.00-0.20MerMemorial Health System [facility] HospitalComment on above:Performed By: #### CP, LIP, CDP #### [address] [place] [address] Light Cleaner: MDAbs. MakaylaImm.Granulocyte<0.22Kyfnvc6.00-0.30MerMemorial Health System Marietta Memorial Hospital HospitalComment on above:Performed By: #### CP, LIP, CDP #### [address] [place] [address] Light Cleaner: Ben Benavides.Neutrophil (Seg)2.78 k/uLNormal1.50-8.10MerMemorial Health System [facility] HospitalComment on above:Performed By: #### VENTURA, LIP, CDP #### [address] [place] [address] Light Cleaner: Lakhwinder Tim MDBasophils/100 WBC (Bld)0 %Normal0-2[facility] HospitalComment on above:Performed By: #### VENTURA, LIP, CDP #### [address] [place] [address] Light Cleaner: Lakhwinder Tim MDEosinophils (Bld) [#/Vol]0.13 10*3/uLNormal 0.00-0.44[facility] HospitalComment on above:Performed By: #### CP, LIP, CDP #### [address] [place] [address] Light Cleaner: Lakhwinder Tim MDEosinophils/100 WBC (Bld)2 %Normal1-4MerMemorial Health System [facility] HospitalComment on above:Performed By: #### CP, LIP, CDP #### [address] [place] [address] Light Cleaner: Lakhwinder Tim MDErythrocyte distribution width (RBC) [Ratio]14.9 % High11.8-14.4[facility] County Medical CenterComment on above:Performed By: #### CP, LIP, CDP #### [address] [place] [address] Light Cleaner: Lakhwinder Tim MDHematocrit (Bld) [Volume fraction]33.2 %Low 36.3-47.1MSelect Medical Specialty Hospital - Columbus SouthComment on above:Performed By: #### CP, LIP, CDP #### [address] [place] [address] Light Cleaner: Lakhwinder Tim MDHemoglobin (Bld) [Mass/Vol]10.8 g/dLLow11.9-15.1 [facility] Medical CenterComment on above:Performed By: #### VENTURA, LIP, CDP #### [address] [place] [address] Light Cleaner: Lakhwinder Tim MDImmature granulocytes/100 WBC (Bld)0 %Ugajbt4QpwetAshtabula County Medical CenterComment on above:Performed By: #### CP, LIP, CDP #### [address] [place] [address] Light Cleaner: Lakhwinder Tim MDLymphocytes (Bld) [#/Vol]3.20 10*3/uLNormal 1.10-3.70[facility] County Medical CenterComment on above:Performed By: #### CP, LIP, CDP #### [address] [place] [address] Light Cleaner: Oniel Benavidesmphocytes/100 WBC (Bld)48 %Qflh93-07MritbAshtabula County Medical CenterComment on above:Performed By: #### CP, LIP, CDP #### [address] [place], [place] [address] Light Cleaner: GUERO BenavidesCH (RBC) [Entitic mass]27.8 igNhbdrw27.2-33.5 [facility] Medical CenterComment on above:Performed By: #### CP, LIP, CDP #### [address] [place], [facility]83 Light Cleaner: GUERO BenavidesCHC (RBC) [Mass/Vol]32.5 g/lWQdnypd09.4-34.8[facility] County Medical CenterComment on above:Performed By: #### CP, LIP, CDP #### [address] [place] [address] Light Cleaner: GUERO BenavidesCV (RBC) [Entitic vol]85.6 dUJwmekc98.6-102.9 [facility] Medical CenterComment on above:Performed By: #### CP, LIP, CDP #### [address] [place], [facility]83 Light Cleaner: GUERO Benavidesonocytes (Bld) [#/Vol]0.63 10*3/uLNormal0.10-1.20 [facility] Medical CenterComment on above:Performed By: #### CP, LIP, CDP #### [address] [place], [place] [address] Light Cleaner: GUERO Benavidesonocytes/100 WBC (Bld)9 %Normal3-12[facility] County Medical CenterComment on above:Performed By: #### CP, LIP, CDP #### [address] [place] [address] Light Cleaner: Lakhwinder Tim MDNeutrophil (Seg)41 %Pcrifv44-98Kdfrf Tiffin HospitalComment on above:Performed By: #### CP, LIP, CDP #### [address] [place], [place] [address] Light Cleaner: GAYATRI Benavides Automated0.0 per 100 WBCNormal0.0[facility] County Medical CenterComment on above:Performed By: #### VENTURA LIP, CDP #### [address] [place] [id number] Light Cleaner: Bandar Benavides mean volume (Bld) [Entitic vol]9.8 fL Normal8.1-13.5[facility] County Medical CenterComment on above:Performed By: #### VENTURA, LIP, CDP #### [address] [place], [facility]83 Light Cleaner: Martina Benavides (Bld) [#/Vol]275 10*3/hMDgweoe921-716 [facility] HospitalComment on above:Performed By: #### TOM WHITEHEAD, CDP #### [address] [place], [place] [address] Light Cleaner: MAU Benavides (Bld) [#/Vol]3.88 10*6/uLLow3.95-5.11[facility] County Medical CenterComment on above:Performed By: #### VENTURA LIP, CDP #### [address] [place], [place] [address] Light Cleaner: JACKIE Benavides (Bld) [#/Vol]6.8 10*3/uLNormal3.5-11.3MSelect [facility] HospitalComment on above:Performed By: #### VENTURA LIP, CDP #### [address] [place], [facility]83 Light Cleaner: ELENA Benavides ABDOMEN PELVIS W IV CONTRASTon [id number] ABDOMEN PELVIS W IV CONTRASTEXAMINATION: CT OF THE ABDOMEN AND PELVIS WITH [...] x 23 mm. Stranding suggests acute inflammation. Peritoneum/Retroperitoneum: The abdominal aorta and iliac arteries are normal in caliber. There is no pathologic adenopathy. Bones/Soft Tissues: Normal IMPRESSION: Multiloculated right adnexal cystic mass with inflammatory change. Recommend pelvic ultrasound. Interpreted by: Tres Barillas MD Signed by: Tres Barillas MD 02/03/24 Final resultNormalMercy [facility] Hospital [facility] Abdomen and Pelvis W contrast Alexsander 61-74-8883Lpplklmizrnxfd right adnexal cystic mass with inflammatory change. Recommend pelvic ultrasound. [facility] RIS CONSOLIDATEDEXAMINATION: CT OF THE ABDOMEN AND PELVIS WITH [...] x 23 mm. Stranding suggests acute inflammation. Peritoneum/Retroperitoneum: The abdominal aorta and iliac arteries are normal in caliber. There is no pathologic adenopathy. Bones/Soft Tissues: Normal MHPN Tres Cordero MD - 02/03/2024 EXAMINATION: CT OF THE [...] x 23 mm. Stranding suggests acute inflammation. Peritoneum/Retroperitoneum: The abdominal aorta and iliac arteries are normal in caliber. There is no pathologic adenopathy. Bones/Soft Tissues: Normal IMPRESSION: Multiloculated right adnexal cystic mass with inflammatory change. Recommend pelvic ultrasound. [facility] [employer] [facility] HOSPITALRadiology Study observation (narrative)[facility] [employer] POMERENE HOSPITALCT Abdomen and Pelvis W contrast IVOrdered By: Tres Barillas on [id number] HEALTH SYSTEM Work Phone: Comp Metabolic Profon [id number] [Mass/Vol]4.1 g/dLNormal3.5-5.2[facility] HospitalComment on above:Performed By: #### CP, LIP, CDP #### [address] [place] [address] Light Cleaner: Lakhwinder Tim MDAlbumin/Glob Ratio1.0Zzlmem2.0-2.5[facility] HospitalComment on above:Performed By: #### CP, LIP, CDP #### [address] [place] [address] Light Cleaner: Sergio Benavideskaline Phos64 U/JIdyixz71-586Xsrsc Tiffin HospitalComment on above:Performed By: #### VENTURA, LIP, CDP #### [address] [place] [address] Light Cleaner: Lakhwinder Tim MDALT [Catalytic activity/Vol]7 U/LNormal5-33[facility] HospitalComment on above:Performed By: #### CP, LIP, CDP #### [address] [place] [address] Light Cleaner: Lakhwinder Tim MDAnion gap [Moles/Vol]11 mmol/LNormal9-17MerMem[facility] HospitalComment on above:Performed By: #### CP, LIP, CDP #### [address] [place] [address] Light Cleaner: Lakhwinder Tim MDAST [Catalytic activity/Vol]12 U/LNormal<32MerMemorial Health [facility] HospitalComment on above:Performed By: #### CP, LIP, CDP #### [address] [place], [place] 1061083 Light Cleaner: Lakhwinder Tim MDBilirubin [Mass/Vol]0.2 mg/dLLow0.3-1.2[facility] HospitalComment on above:Performed By: #### VENTURA LIP, CDP #### [address] [place], [place] 0729583 Light Cleaner: Lakhwinder Tim MDBUN/CRE Fsnaj71Hibaxx2-86[facility] Comment on above:Performed By: #### VENTURA, LIP, CDP #### [address] [place] [address] Light Cleaner: JUAREZ Benavidesalcium [Mass/Vol]8.9 mg/dLNormal8.6-10.4[facility] Medical CenterComment on above:Performed By: #### VENTURA LIP, CDP #### [address] [place] [address] Light Cleaner: JUAREZ Benavideshloride [Moles/Vol]99 mmol/IOyknnp67-628IgrubAshtabula County Medical CenterComment on above:Performed By: #### VENTURA LIP, CDP #### [address] [place] [address] Light Cleaner: Lakhwinder Tim MDCO2 [Moles/Vol]28 mmol/IQdnuvx19-97KjmlyAshtabula County Medical CenterComment on above:Performed By: #### VENTURA LIP, CDP #### [address] [place] [address] Light Cleaner: JUAREZ Benavidesreatinine [Mass/Vol]0.6 mg/dLNormal0.5-0.9[facility] Medical CenterComment on above:Performed By: #### VENTURA, LIP, CDP #### [address] [place], [place] 1153583 Light Cleaner: Lakhwinder Tim MDGFR/1.73 sq M.predicted among non-blacks MDRD (S/P/Bld) [Vol rate/Area]mL/min/{1.73_m2}Normal>60[facility] HospitalComment on above:Result Comment: These results are not intended for [...] or following therapy that affects renal tubular secretion.Performed By: #### TOM WHITEHEAD, CDP #### [address] [place] [address] Light Cleaner: Lakhwinder Tim MDGlucose [Mass/Vol]86 mg/tHKmxick28-97Yqeod [facility]S Medical CenterComment on above:Performed By: #### TOM WHITEHEAD, CDP #### [address] [place], [place] 4298683 Light Cleaner: PARUL Benavidesotassium [Moles/Vol]3.8 mmol/LNormal3.7-5.3[facility] HospitalComment on above:Performed By: #### TOM WHITEHEAD, CDP #### [address] [place], [place] 3160883 Light Cleaner: Lakhwinder Tim MDProtein [Mass/Vol]7.8 g/dLNormal6.4-8.3[facility] HospitalComment on above:Performed By: #### TOM WHITEHEAD, CDP #### [address] [place] [address] Light Cleaner: Lakhwinder Tim MDSodium [Moles/Vol]138 mmol/YGnpbpf531-617Ctuhb Tiffin HospitalComment on above:Performed By: #### TOM WHITEHEAD, CDP #### [address] [place] [address] Light Cleaner: Lakhwinder Tim MDUrea nitrogen [Mass/Vol]12 mg/dLNormal6-20MerMem[facility] HospitalComment on above:Performed By: #### CP, LIP, CDP #### [facility] [address] [place] [address] Light Cleaner: Lakhwinder Tim [facility] WOODWARDompgalion hospitalensive Metabolic Panelon [id number] [Mass/Vol]4.1 g/dL3.5 - 5.2 g/dLBON [facility]BLEN[facility] HOSPITALAlbumin/Globulin [Mass ratio]1.1 {ratio}1.0 - 2.5BON [facility]CCHRISTUS [facility] HEALTHALP [Catalytic activity/Vol]64 U/L35 - 104 U/LBON [facility] HEALTHALT [Catalytic activity/Vol]7 U/L5 - 33 U/LBON [facility]BLEN[facility] HOSPITALAnion gap [Moles/Vol]11 mmol/L9 - 17 mmol/LBON [facility] HEALTHAST [Catalytic activity/Vol]12 U/LNINF - 32 U/LBON [facility] HOSPITALBilirubin [Mass/Vol]0.2 mg/dLLow0.3 - 1.2 mg/dLBON [facility]'BLEN[facility] HOSPITALCalcium [Mass/Vol]8.9 mg/dL8.6 - 10.4 mg/dLBON [facility] Chloride [Moles/Vol]99 mmol/L98 - 107 mmol/LBON [facility]'BLEN[facility] HOSPITALCO2 [Moles/Vol]28 mmol/L20 - 31 mmol/LBON [facility]EN[facility] HOSPITALCreatinine [Mass/Vol] 0.6 mg/dL0.5 - 0.9 mg/dLBON [facility]'BLEN[facility] HOSPITALEst, Glom Filt Rate- PINFBON [facility] O'BLENESS HOSPITALComment on above: These results are not intended [...] therapy that affects renal tubular secretion. Glucose [Mass/Vol]86 mg/dL70 - 99 mg/dLBON [facility]EN[facility] HOSPITALInterpretation and review of laboratory resultsAbnormalBON [facility] HOSPITALPotassium [Moles/Vol]3.8 mmol/L3.7 - 5.3 mmol/LBON [facility] HOSPITALProtein [Mass/Vol] 7.8 g/dL6.4 - 8.3 g/dLBON OHIOHEALTH O'BLENESS HOSPITALSodium [Moles/Vol]138 mmol/L135 - 144 mmol/LBON [facility]'BLENESS HOSPITALUrea nitrogen [Mass/Vol]12 mg/dL6 - 20 mg/dL [facility] HOSPITALUrea nitrogen/Creatinine [Mass ratio]20 mg/mg9 - 20BON [facility]BLEN[facility] HOSPITALHCG, ,Urineon [id number] HCG ( test) Ql (U)NegativeNormalNEGAshtabula County Medical CenterComment on above:Result Comment: Specimens with hCG levels near the threshold of the test (25 mIU/mL) may give a negative or indeterminate result. In such cases, another test should be performed with a new specimen in 48-72 hours. If early is suspected clinically in this setting, correlation with quantitative serum b-hCG level is suggested. [facility] has confirmed the use of plasma for this test. This has not been cleared or approved by the U.S. Food and Drug Administration. The FDA has determined that such clearance is not necessary.Performed By: #### CP, LIP, CDP #### [address] [place] [address] Light Cleaner: Lakhwinder Tim MDLactic Acidon 25-26-4433Skwnaqq (BldV) [Moles/Vol] 1.0 mmol/L0.5 - 2.2 mmol/LBON [facility]BLEN[facility] HOSPITALBON [facility] Lactate [Moles/Vol]1.0 mmol/LNormal0.5-2.2[facility]S Medical CenterComment on above: Performed By: #### LACTIC #### [facility] [address] [place] [address] Light Cleaner: Lakhwinder Tim MDLipaseon [id number] [Catalytic activity/Vol] 29 U/L13 - 60 U/LBON [facility] O'BLENESS HOSPITALLipase [Catalytic activity/Vol]29 U/L Ivflcj13-44JvfyoAshtabula County Medical CenterComment on above:Performed By: #### CP, LIP, CDP #### [facility] [address] [place] [address] Light Cleaner: Molly Benavides Panel Informationon [id number] [facility]EN[facility] HOSPITALPregnancy, Urineon 33-29-8549AEM ( test) Ql (U)NegativeNEGATIVE [facility]OUN HOSPITALComment on above:Specimens with hCG levels near the threshold of the test (25 mIU/mL) may give a negative or indeterminate result. In such cases, another test should be performed with a new specimen in 48-72 hours. If early is suspected clinically in this setting, correlation with quantitative serum b-hCG level is suggested. [facility] has confirmed the use of plasma for this test. This has not been cleared or approved by the U.S. Food and Drug Administration. The FDA has determined that such clearance is not necessary. [facility]OUN HOSPITALUrinalysis w/ Microon [id number] NONEAshtabula County Medical CenterComment on above:Performed By: #### CP, LIP, CDP #### [facility] [address] [place] [address] [place] [address] Light Cleaner: Jasmin Benavidesirubin, SemiQt,UrNegativeNormalNEGAshtabula County Medical CenterComment on above:Performed By: #### CP, LIP, CDP #### [facility] [address] [place] [address] Light Cleaner: Kenn Benavides, UrineNegativeNormalNEGAshtabula County Medical Center Comment on above:Performed By: #### CP, LIP, CDP #### [facility] [address] [place] [address] Light Cleaner: JUAREZ Benavideslarity (U)ClearNormalCLEARAshtabula County Medical Center Comment on above:Performed By: #### CP, LIP, CDP #### [facility] [address] [place] [address] [place] [address] Light Cleaner: JUAREZ Benavidesolor (U)YellowNormalYUniversity Hospitals Parma [facility] Comment on above:Performed By: #### CP, LIP, CDP #### [facility] [address] [place] [address] [place] [address] Light Cleaner: Lakhwinder Tim MDEpithelial cells LM Ql (Urine sed)2 TO 3Wlgjyj2-61 [facility] Medical CenterComment on above:Performed By: #### CP, LIP, CDP #### [facility] [address] [place] [address] [place] [address] Light Cleaner: Lakhwinder Tim MDGlucose Ql (U)NegativeNormalNEGAshtabula County Medical CenterComment on above:Performed By: #### CP, LIP, CDP #### [facility] [address] [place] [address] [place], [place] [id number] Light Cleaner: Lakhwinder Tim MDKetones Ql (U)NegativeNormalNEGAshtabula County Medical CenterComment on above:Performed By: #### CP, LIP, CDP #### [facility] [address] [place] [address] [place] [address] Light Cleaner: Lakhwinder Tim MDLeukocyte esterase Test strip Ql (U)NegativeNormal NEGAshtabula County Medical CenterComment on above:Performed By: #### CP, LIP, CDP #### [facility] [address] [place] [address] [place] [address] Light Cleaner: GUERO Benavidesucus Strands2+AbnormalNONEMeYale New [facility] Children's Hospital Comment on above:Performed By: #### CP, LIP, CDP #### [facility] [address] [place] [address] [place] [address] Light Cleaner: Lakhwinder Tim MDNitrite,UrNegativeMcKitrick Hospital Comment on above:Performed By: #### CP, LIP, CDP #### [facility] [address] [place] [address] [place] [address] Light Cleaner: PARUL BenavidesH,Ur6.1Dosmin8.0-9.0MerJohnson Memorial HospitalComment on above:Performed By: #### VENTURA, LIP, CDP #### [facility] [address] [place] [address] [place] [address] Light Cleaner: PARUL Benavidesrotein Ql (U)NegativeNormalNEGProvidence Hospital HospitalComment on above:Performed By: #### VENTURA LIP, CDP #### [facility] [address] [place] [address] [place] [address] Light Cleaner: Luis Fernando Benavides. [place],Ur>1.230Udfo3.010-1.020MerMemorial Health System [facility] HospitalComment on above:Performed By: #### VENTURA LIP, CDP #### [facility] [address] [place] [address] [place] [address] Light Cleaner: Zulay Benavides RBC's0 TO 8Yhiarq7-7AblcbSelect Medical Specialty Hospital [facility] Comment on above:Performed By: #### TOM WHITEHEAD, CDP #### [facility] [address] [place] [address] [place] [address] Light Cleaner: Zulay Benavides WBC's0 TO 4Pbxqnt4-1OrysgAshtabula County Medical Center Comment on above:Performed By: #### TOM WHITEHEAD, CDP #### [facility] [address] [place] [address] [place] [address] Light Cleaner: Lakhwinder Tim MDUrobilinogen,UrNormalNormal0.0-1.0[facility] Medical CenterComment on above:Performed By: #### VENTURA LIP, CDP #### [facility] [address] [place] [address] [place] [address] Light Cleaner: Lakhwinder Tim MDUrinalysis with Microscopicon [id number] LM Ql (Urine sed)TRACEAbnormalNoneBON SECOURS MERCY HEALTHBilirubin Ql (U) NegativeNEGATIVEBON SECOURS MERCY HEALTHClarity (U)ClearClearBON SECOURS MERCY HEALTHColor (U)YellowYellowBON SECOURS MERCY HEALTHEpithelial cells LM.HPF (Urine sed) [#/Area]2 TO 5B[facility]OURS MERCY HEALTHGlucose Test strip (U) [Mass/Vol]NegativeNEGATIVE mg/dLBON SECOURS MERCY HEALTHHemoglobin Auto test strip Ql (U)NegativeNEGATIVEBON SECOURS MERCY HEALTHInterpretation and review of laboratory resultsAbnormalBON SECOURS MERCY HEALTHKetones (U) [Mass/Vol] NegativeNEGATIVE mg/dLBON SECOURS MERCY HEALTHLeukocyte esterase Test strip Ql (U)NegativeNEGATIVEBON SECOURS MERCY HEALTHMucus Ql (Urine sed)2+AbnormalNoneBON SECOURS MERCY HEALTHNitrite Ql (U)NegativeNEGATIVEBON SECOURS MERCY HEALTHpH (U)6.0 [pH]5.0 - 9.0[facility] HEALTHProtein (U) [Mass/Vol]Negative NEGATIVE mg/dLBON SECOURS MERCY HEALTHRBC LM.HPF (Urine sed) [#/Area]0 TO 2B[facility] HEALTHSpecific gravity (U) [Rel density]High1.010 - 1.020B[facility] HEALTHUrobilinogen Qn (U)Normal0.0 - 1.0 EU/dLBON SECOURS MERCY HEALTHWBC LM.HPF (Urine sed) [#/Area]0 TO 2[facility] HEALTHB[facility]Y HEALTHCBC AND AUTO DIFFon 12-17-6650VXPKBPAJ BASOPHIL0.0 X10E9/LNormal 0.0-0.2[facility] German HospitalComment on above:Performed By: #### 2823-3 #### [facility] ([id number]) [address], [address] [place], [place] [address]DVNAALCZ NEUTROPHIL7.1 X10E9/LHigh1.5-6.6[facility] HospitalComment on above:Performed By: #### 2823-3 #### [facility] ([id number]) [address], [address] [place], [place] [address]Ozrrnqrlr/100 WBC (Bld)0.2 %NormalMarietta Osteopathic Clinic Comment on above:Performed By: #### 2823-3 #### [facility] ([id number]) [address], [address] [place], [place] [address]Qeajimgguyt (Bld) [#/Vol]0.1 10*3/uLNormal0.0-0.4[facility] HospitalComment on above:Performed By: #### 2823-3 #### [facility] ([id number]) [address], [address] [place], [place] [address]Jpbdbffgocg/100 WBC (Bld)1.4 %NormalMarietta Osteopathic Clinic Comment on above:Performed By: #### 2823-3 #### [facility] ([id number]) [address], [address] [place], [place] [address]Taxtmctnuyi distribution width (RBC) [Ratio]15.3 %High11.5-15.0 [facility] HospitalComment on above:Performed By: #### 2823-3 #### [facility] ([id number]) [address], [address] [place], [place] [address]Qidhztlyye (Bld) [Volume fraction]30.6 %Drp80-81DeoEhbtil [facility] HospitalComment on above:Performed By: #### 2823-3 #### [facility] ([id number]) [address], [address] [place], [place] [address]Rgxvmwpley (Bld) [Mass/Vol]10.1 g/dLLow11.7-15.5[facility] HospitalComment on above:Performed By: #### 2823-3 #### [facility] ([id number]) [address], [address] [place], [place] [address]Qvkhvnwtbjz (Bld) [#/Vol]1.8 10*3/uLNormal1.0-3.5[facility] HospitalComment on above:Performed By: #### 2823-3 #### [facility] ([id number]) [address], [address] [place], [place] [address]Sfmfoayrrqg/100 WBC (Bld)18.1 %NormalProKnox Community Hospitalca [facility] Comment on above:Performed By: #### 2823-3 #### [facility] ([id number]) [address], [address] [place], [place] [address]KQD (RBC) [Entitic mass]27.7 gpRbavle67-28HtxZzotof [facility] HospitalComment on above:Performed By: #### 2823-3 #### [facility] ([id number]) [address], [address] [place], [place] [address]UEBL (RBC) [Mass/Vol]32.9 g/kSWltfcc78-42UncCgfkmj [facility] HospitalComment on above:Performed By: #### 2823-3 #### [facility] ([id number]) [address], [address] [place], [place] [address]AMP (RBC) [Entitic vol]84 fJNudrks41-617UatWjxtum [facility] HospitalComment on above:Performed By: #### 2823-3 #### [facility] ([id number]) [address], [address] [place], [place] [address]Qmrlnnldw (Bld) [#/Vol]1.0 10*3/uLHigh0-0.9[facility] HospitalComment on above:Performed By: #### 2823-3 #### [facility] ([id number]) [address], [address] [place], [place] [address]Znkmdellx/100 WBC (Bld)9.6 %NormalProMedica [facility] Comment on above:Performed By: #### 2823-3 #### [facility] ([id number]) [address], [address] [place], [place] [address]Hrniptzvukb/100 WBC (Bld)70.7 %NormalProDunlap Memorial Hospital Comment on above:Performed By: #### 2823-3 #### [facility] ([id number]) [address], [address] [place], [place] [address]Timknqmn mean volume (Bld) [Entitic vol]7.8 fLNormal7-12 [facility] HospitalComment on above:Performed By: #### 2823-3 #### [facility] ([id number]) [address], [address] [place], [place] [address]Ptpfuuezt (Bld) [#/Vol]404 10*3/nPJjxzfu904-683LcyZceera [facility] HospitalComment on above:Performed By: #### 2823-3 #### [facility] ([id number]) [address], [address] [place], [place] [address]SVC COUNT3.64 X10E12/LLow3.80-5.20[facility] Comment on above:Performed By: #### 2823-3 #### [facility] ([id number]) [address], [address] [place], [place] [address]EXB (Bld) [#/Vol]10.1 10*3/uLNormal4.0-11.0Pro[facility] HospitalComment on above:Performed By: #### 2823-3 #### [facility] ([id number]) [address], [address] [place], [place] [address]OYFUQLZJINIPM METABOLIC PANELon 83-95-0192Lmsriem [Mass/Vol]3.0 g/dLLow3.2-5.3[facility] HospitalComment on above:Performed By: #### 2823- 3 #### [facility] ([id number]) [address], [address] [place], [place] [address]NBV [Catalytic activity/Vol]76 U/DDacktl30-344KfgNheysj [facility] HospitalComment on above:Performed By: #### 2823-3 #### [facility] ([id number]) [address], [address] [place], [place] [address]NWN [Catalytic activity/Vol]10 U/LNormal0-31[facility] HospitalComment on above:Performed By: #### 2823-3 #### [facility] ([id number]) [address], [address] [place], [place] [address]Jywea gap [Moles/Vol]9 mmol/LNormal5-15[facility] Comment on above:Performed By: #### 2823-3 #### [facility] ([id number]) [address], [address] [place], [place] [address]HQH [Catalytic activity/Vol]10 U/LNormal0-41[facility] HospitalComment on above:Performed By: #### 2823-3 #### [facility] ([id number]) [address], [address] [place], [place] [address]Dvguooelq [Mass/Vol]0.2 mg/dLLow0.3-1.2PParma [facility] Comment on above:Performed By: #### 2823-3 #### [facility] ([id number]) [address], [address] [place], [place] [address]Oagnbij [Mass/Vol]8.6 mg/dLNormal8.5-10.5PTulane University Medical Center [facility] HospitalComment on above:Performed By: #### 2823-3 #### [facility] ([id number]) [address], [address] [place], [place] [address]Pkpuvofq [Moles/Vol]99 mmol/DReisol60-115VkhTzdxbg [facility] HospitalComment on above:Performed By: #### 2823-3 #### [facility] ([id number]) [address], [address] [place], [place] [address]WR1 [Moles/Vol]28 mmol/STmgjzb75-84HtzRisfnuDetwiler Memorial Hospital Comment on above:Performed By: #### 2823-3 #### [facility] ([id number]) [address], [address] [place], [place] [address]Rpujqqgafk [Mass/Vol]0.44 mg/dLNormal0.40-1.00ProDunlap Memorial HospitalComment on above:Result Comment: METHOD TRACEABLE TO IDMS STANDARD Performed By: #### 2823-3 #### [facility] ([id number]) [address], [address] [place], [place] [address]nGUO (CKD-EPI) NON-RACE DEPENDENT>90Normal>59ProDunlap Memorial HospitalComment on above:Result Comment: Reported eGFR is based on the CKD-EPI 2020 equation that does not use a race coefficient.Performed By: #### 2823-3 #### [facility] ([id number]) [address], [address] [place], [place] [address]Onjwhjo [Mass/Vol]87 mg/mJZcelzl76-88HsfNbgcjzMarietta Osteopathic Clinic Comment on above:Performed By: #### 2823-3 #### [facility] ([id number]) [address], [address] [place], [place] [address]Tooefnrzs [Moles/Vol]3.9 mmol/LNormal3.5-5.0[facility] ClinicComment on above:Performed By: #### 2823-3 #### [facility] ([id number]) [address], [address] [place], [place] [address]Xqdpynz [Mass/Vol]6.3 g/dLNormal6.0-8.0[facility] Comment on above:Performed By: #### 2823-3 #### [facility] ([id number]) [address], [address] [place], [place] [address]Vzlvel [Moles/Vol]136 mmol/DVpgclh032-253EhbStrvax [facility] HospitalComment on above:Performed By: #### 2823-3 #### [facility] ([id number]) [address], [address] [place], [place] [address]Bqmw nitrogen [Mass/Vol]5 mg/dLNormal5-23[facility] HospitalComment on above:Performed By: #### 2823-3 #### [facility] ([id number]) [address], [address] [place], [place] [address]ATH AND AUTO DIFFon 11-82-2646YRYULWJT BASOPHIL0.0 X10E9/LNormal 0.0-0.2[facility] HospitalComment on above:Performed By: #### 2823-3 #### [facility] ([id number]) [address], [address] [place], [place] [address]WXNGQUYE NEUTROPHIL8.2 X10E9/LHigh1.5-6.6[facility] HospitalComment on above:Performed By: #### 2823-3 #### [facility] ([id number]) [address], [address] [place], [place] [address]Sgohaizqb/100 WBC (Bld)0.2 %NormalProKnox Community Hospitalca [facility] Comment on above:Performed By: #### 2823-3 #### [facility] ([id number]) [address], [address] [place], [place] [address]Hgcmivepbft (Bld) [#/Vol]0.0 10*3/uLNormal0.0-0.4[facility] HospitalComment on above:Performed By: #### 2823-3 #### [facility] ([id number]) [address], [address] [place], [place] [address]Xygkdfsnpcn/100 WBC (Bld)0.1 %NormalProDunlap Memorial Hospital Comment on above:Performed By: #### 2823-3 #### [facility] ([id number]) [address], [address] [place], [place] [address]Oizagcjtesz distribution width (RBC) [Ratio]15.3 %High11.5-15.0 [facility] HospitalComment on above:Performed By: #### 2823-3 #### [facility] ([id number]) [address], [address] [place], [place] [address]Ajllqyjzqz (Bld) [Volume fraction]31.5 %Soe34-07HssWdiyre [place] HospitalComment on above:Performed By: #### 2823-3 #### [facility] ([id number]) [address], [address] [place], [place] [address]Pxjtyguupu (Bld) [Mass/Vol]10.5 g/dLLow11.7-15.5ProMedMer[facility] HospitalComment on above:Performed By: #### 2823-3 #### [facility] ([id number]) [address], [address] [place], [place] [address]Xfpyedhseti (Bld) [#/Vol]1.2 10*3/uLNormal1.0-3.5ProMedMer[facility] HospitalComment on above:Performed By: #### 2823-3 #### [facility] ([id number]) [address], [address] [place], [place] [address]Ufyndvyuvad/100 WBC (Bld)12.0 %NormalProDunlap Memorial Hospital Comment on above:Performed By: #### 2823-3 #### [facility] ([id number]) [address], [address] [place], [place] [address]BTT (RBC) [Entitic mass]28.0 pxHuswne90-11IbdQcngye [facility] HospitalComment on above:Performed By: #### 2823-3 #### [facility] ([id number]) [address], [address] [place], [place] [address]ZHHT (RBC) [Mass/Vol]33.3 g/tCBzzkmx58-56TqxKbqkdf [facility] HospitalComment on above:Performed By: #### 2823-3 #### [facility] ([id number]) [address], [address] [place] [address]VSE (RBC) [Entitic vol]84 lVBbwugm77-035JtwFgmewo [facility] HospitalComment on above:Performed By: #### 2823-3 #### [facility] ([id number]) [address], [address] [place], [place] [address]Rozacvybm (Bld) [#/Vol]0.7 10*3/uLNormal0-0.9ProKnox Community Hospitalca [facility] HospitalComment on above:Performed By: #### 2823-3 #### [facility] ([id number]) [address], [address] [place], [place] [address]Nowiiqjem/100 WBC (Bld)6.5 %NormalMarietta Osteopathic Clinic Comment on above:Performed By: #### 2823-3 #### [facility] ([id number]) [address], [address] [place], [place] [address]Nucagfrciqo/100 WBC (Bld)81.2 %NormalMarietta Osteopathic Clinic Comment on above:Performed By: #### 2823-3 #### [facility] ([id number]) [address], [address] [place], [place] [address]Illrbktk mean volume (Bld) [Entitic vol]8.8 fLNormal7-12 [facility] HospitalComment on above:Performed By: #### 2823-3 #### [facility] ([id number]) [address], [address] [place], [place] [address]Pjpmlcqxk (Bld) [#/Vol]341 10*3/cVWkyyyr328-327DxdEkkytn [facility] HospitalComment on above:Performed By: #### 2823-3 #### [facility] ([id number]) [address], [address] [place] [address]TLJ COUNT3.75 X10E12/LLow3.80-5.20[facility] Comment on above:Performed By: #### 2823-3 #### [facility] ([id number]) [address], [address] [place], [place] [address]HNO (Bld) [#/Vol]10.1 10*3/uLNormal4.0-11.0ProKnox Community Hospitalca [facility] HospitalComment on above:Performed By: #### 2823-3 #### [facility] ([id number]) [address], [address] [place] [address]DFKBWAKTILGTP METABOLIC PANELon 76-29-8451Ydcnvbd [Mass/Vol]3.2 g/dLNormal3.2-5.3PParma Community General Hospital HospitalComment on above:Performed By: #### 2823-3 #### [facility] ([id number]) [address], [address] [place] [address]OZT [Catalytic activity/Vol]95 U/BByxseq45-404RpoOhnhrg [facility] HospitalComment on above:Performed By: #### 2823-3 #### [facility] ([id number]) [address], [address] [place], [place] [address]UGW [Catalytic activity/Vol]12 U/LNormal0-31[facility]Med[facility] HospitalComment on above:Performed By: #### 2823-3 #### [facility] ([id number]) [address], [address] [place], [place] [address]Qkpun gap [Moles/Vol]14 mmol/LNormal5-15[facility] HospitalComment on above:Performed By: #### 2823-3 #### [facility] ([id number]) [address], [address] [place], [place] [address]CVK [Catalytic activity/Vol]9 U/LNormal0-41[facility] HospitalComment on above:Performed By: #### 2823-3 #### [facility] ([id number]) [address], [address] [place], [place] [address]Ogvhuuivi [Mass/Vol]0.3 mg/dLNormal0.3-1.2[facility] HospitalComment on above:Performed By: #### 2823-3 #### [facility] ([id number]) [address], [address] [place], [place] [address]Dyseceg [Mass/Vol]8.9 mg/dLNormal8.5-10.5ProMedchoctaw general hospital [facility] HospitalComment on above:Performed By: #### 2823-3 #### [facility] ([id number]) [address], [address] [place], [place] [address]Aomrjjmu [Moles/Vol]98 mmol/LEplzaw46-377FniOnefau [facility] HospitalComment on above:Performed By: #### 2823-3 #### [facility] ([id number]) [address], [address] [place], [place] [address]VZ0 [Moles/Vol]24 mmol/OYwtgso31-93CajBrmhfx [facility] Comment on above:Performed By: #### 2823-3 #### [facility] ([id number]) [address], [address] [place], [place] [address]Qqgtswjive [Mass/Vol]0.35 mg/dLLow0.40-1.00[facility] HospitalComment on above:Result Comment: METHOD TRACEABLE TO IDMS STANDARD Performed By: #### 2823-3 #### [facility] ([id number]) [address], [address] [place], [place] [address]fPIR (CKD-EPI) NON-RACE DEPENDENT>90Normal>59ProDunlap Memorial HospitalComment on above:Result Comment: Reported eGFR is based on the CKD-EPI 2020 equation that does not use a race coefficient.Performed By: #### 2823-3 #### [facility] ([id number]) [address], [address] [place], [place] [address]Bzxhnnl [Mass/Vol]82 mg/cCRuwwlz63-94FatFeatmh [facility] Comment on above:Performed By: #### 2823-3 #### [facility] ([id number]) [address] [place], [place] [address]Avgatudqh [Moles/Vol]3.7 mmol/LNormal3.5-5.0ProDunlap Memorial HospitalComment on above:Performed By: #### 2823-3 #### [facility] ([id number]) [address] [place], [place] [address]Adhpmel [Mass/Vol]7.0 g/dLNormal6.0-8.0[facility] Comment on above:Performed By: #### 2823-3 #### [facility] ([id number]) [address], [address] [place], [place] [address]Buqoju [Moles/Vol]136 mmol/PPqhyom594-551JgeNlrdie [place] HospitalComment on above:Performed By: #### 2823-3 #### [facility] ([id number]) [address], [address] [place], [place] [address]Yshg nitrogen [Mass/Vol]5 mg/dLNormal5-23Pro[facility] Memorial HospitalComment on above:Performed By: #### 2823-3 #### [facility] ([id number]) [address], [address] [place], [place] [address]RROQHETVHdj 34-69-0638Dgjggpntv [Mass/Vol]1.8 mg/dLNormal1.8-2.6 [facility] HospitalComment on above:Performed By: #### 2823-3 #### [facility] ([id number]) [address], [address] [place], [place] [address]HHAAIQMOPBav 35-29-7778Qxvjhbbte [Mass/Vol]3.3 mg/dLNormal 2.4-4.9[facility] HospitalComment on above:Performed By: #### 2823-3 #### [facility] ([id number]) [address], [address] [place], [place] [address]OQPSZYHOVys 85-94-3611Wfsmupxcc [Moles/Vol]3.5 mmol/LNormal 3.5-5.0[facility] HospitalComment on above:Performed By: #### 2823-3 #### [facility] ([id number]) [address], [address] [place], [place] [address]Ohohhwvzp [Moles/Vol]3.8 mmol/LNormal3.5-5.0[facility] HospitalComment on above:Performed By: #### GARNETT MACHINE OPERATOR HELPER #### [facility] ([id number]) [address], [address] [place], [place] [address]WIAYMGTR CULTUREon 16-23-8581Btynmnyb identified Anaer cx Nom (Unsp spec)CULTURE RESULTS NO GROWTH 5 DAYSNormalProMedica [facility] HospitalComment on above:Performed By: #### 2823-3 #### [facility] ([id number]) [address], [address] [place], [place] [address]CSSZIWLY CULTUREon 50-51-6314Gjqchdms identified Aer cx Nom (Asp)GRAM STAIN 10 to 24 WHITE BLOOD CELLS/LPF 0 to 1 SQUAMOUS EPITHELIAL CELLS/LPF NO ORGANISMS SEEN CULTURE RESULTS NO GROWTH 5 DAYSNormalProMedica [facility] HospitalComment on above:Performed By: #### GARNETT MACHINE OPERATOR HELPER #### [facility] ([id number]) [address], [address] [place], [place] [address]IHG AND AUTO DIFFon 23-67-4762XNIUGRVY BASOPHIL0.0 X10E9/LNormal 0.0-0.2[facility] HospitalComment on above:Performed By: #### GARNETT MACHINE OPERATOR HELPER #### [facility] ([id number]) [address], [address] [place], [place] [address]VZOHOITP NEUTROPHIL8.6 X10E9/LHigh1.5-6.6ProKnox Community Hospitalca [facility] HospitalComment on above:Performed By: #### GARNETT MACHINE OPERATOR HELPER #### [facility] ([id number]) [address], [address] [place], [place] [address]Qquxuzuok/100 WBC (Bld)0.2 %NormalMarietta Osteopathic Clinic Comment on above:Performed By: #### GARNETT MACHINE OPERATOR HELPER #### [facility] ([id number]) [address], [address] [place], [place] [address]Bgzlcevlwrq (Bld) [#/Vol]0.1 10*3/uLNormal0.0-0.4ProKnox Community Hospitalca [facility] HospitalComment on above:Performed By: #### GARNETT MACHINE OPERATOR HELPER #### [facility] ([id number]) [address], [address] [place], [place] [address]Jxyydpcpggf/100 WBC (Bld)0.9 %NormalKettering Health [facility] Comment on above:Performed By: #### GARNETT MACHINE OPERATOR HELPER #### [facility] ([id number]) [address], [address] [place], [place] [address]Igmuymrriqu distribution width (RBC) [Ratio]14.9 %Normal 11.5-15.0[facility] HospitalComment on above:Performed By: #### GARNETT MACHINE OPERATOR HELPER #### [facility] ([id number]) [address], [address] [place], [place] [address]Afeggzonsw (Bld) [Volume fraction]27.7 %Ama11-08RwoCvcoje [facility] HospitalComment on above:Performed By: #### GARNETT MACHINE OPERATOR HELPER #### [facility] ([id number]) [address], [address] [place], [place] [address]Gqktapbwud (Bld) [Mass/Vol]9.1 g/dLLow11.7-15.5[facility] HospitalComment on above:Performed By: #### GARNETT MACHINE OPERATOR HELPER #### [facility] ([id number]) [address], [address] [place], [place] [address]Afbcbqwkrwf (Bld) [#/Vol]1.3 10*3/uLNormal1.0-3.5[facility] HospitalComment on above:Performed By: #### GARNETT MACHINE OPERATOR HELPER #### [facility] ([id number]) [address], [address] [place], [place] [address]Hxasqcapeql/100 WBC (Bld)11.2 %NormalProKnox Community Hospitalca [facility] Comment on above:Performed By: #### GARNETT MACHINE OPERATOR HELPER #### [facility] ([id number]) [address], [address] [place], [place] [address]SDM (RBC) [Entitic mass]27.3 bmQefvyc10-62TmkXnimac [facility] HospitalComment on above:Performed By: #### GARNETT MACHINE OPERATOR HELPER #### [facility] ([id number]) [address], [address] [place], [place] [address]YBUB (RBC) [Mass/Vol]32.7 g/pKApbxvq07-21VdcFooxsr [facility] HospitalComment on above:Performed By: #### GARNETT MACHINE OPERATOR HELPER #### [facility] ([id number]) [address], [address] [place], [place] [address]YWY (RBC) [Entitic vol]83 yJUjkiqc77-861MpxXafvea [facility] HospitalComment on above:Performed By: #### GARNETT MACHINE OPERATOR HELPER #### [facility] ([id number]) [address] [place], [place] [address]Richighly (Bld) [#/Vol]1.2 10*3/uLHigh0-0.9[facility] HospitalComment on above:Performed By: #### GARNETT MACHINE OPERATOR HELPER #### [facility] ([id number]) [address], [address] [place], [place] [address]Mvlfaofuu/100 WBC (Bld)10.5 %NormalMercy Health West Hospitalca [facility] Comment on above:Performed By: #### GARNETT MACHINE OPERATOR HELPER #### [facility] ([id number]) [address], [address] [place], [place] [address]Muuiarotqvl/100 WBC (Bld)77.2 %NormalMarietta Osteopathic Clinic Comment on above:Performed By: #### GARNETT MACHINE OPERATOR HELPER #### [facility] ([id number]) [address], [address] [place], [place] [address]Uexgdahu mean volume (Bld) [Entitic vol]8.4 fLNormal7-12 [facility] HospitalComment on above:Performed By: #### GARNETT MACHINE OPERATOR HELPER #### [facility] ([id number]) [address], [address] [place], [place] [address]Vxfxmkbth (Bld) [#/Vol]251 10*3/dDFiwmge278-337FpdKdmjbs [facility] HospitalComment on above:Performed By: #### GARNETT MACHINE OPERATOR HELPER #### [facility] ([id number]) [address], [address] [place], [place] [address]QFJ COUNT3.32 X10E12/LLow3.80-5.20[facility] Comment on above:Performed By: #### GARNETT MACHINE OPERATOR HELPER #### [facility] ([id number]) [address], [address] [place], [place] [address]TSM (Bld) [#/Vol]11.2 10*3/uLHigh4.0-11.0Pro[facility]ica [facility] HospitalComment on above:Performed By: #### GARNETT MACHINE OPERATOR HELPER #### [facility] ([id number]) [address], [address] [place], [place] [address]JUTCSEZOOTPUK METABOLIC PANELon 71-32-7145Oljgepb [Mass/Vol]3.0 g/dLLow3.2-5.3Pro[facility] HospitalComment on above:Performed By: #### GARNETT MACHINE OPERATOR HELPER #### [facility] ([id number]) [address], [address] [place], [place] [address]XBU [Catalytic activity/Vol]97 U/IUmatwn41-417KwaDlfzno [facility] HospitalComment on above:Performed By: #### GARNETT MACHINE OPERATOR HELPER #### [facility] ([id number]) [address], [address] [place], [place] [address]LWZ [Catalytic activity/Vol]14 U/LNormal0-31[facility] HospitalComment on above:Performed By: #### GARNETT MACHINE OPERATOR HELPER #### [facility] ([id number]) [address], [address] [place], [place] [address]Vdirt gap [Moles/Vol]10 mmol/LNormal5-15[facility] HospitalComment on above:Performed By: #### GARNETT MACHINE OPERATOR HELPER #### [facility] ([id number]) [address], [address] [place], [place] [address]BFA [Catalytic activity/Vol]13 U/LNormal0-41[facility] HospitalComment on above:Performed By: #### GARNETT MACHINE OPERATOR HELPER #### [facility] ([id number]) [address], [address] [place], [place] [address]Lkcspuhzh [Mass/Vol]0.7 mg/dLNormal0.3-1.2ProMedica Hewitt HospitalComment on above:Performed By: #### GARNETT MACHINE OPERATOR HELPER #### [facility] ([id number]) [address], [address] [place], [place] [address]Gdjjnre [Mass/Vol]8.4 mg/dLLow8.5-10.5PDetwiler Memorial Hospital Comment on above:Performed By: #### GARNETT MACHINE OPERATOR HELPER #### [facility] ([id number]) [address], [address] [place], [place] [address]Ucxtsimw [Moles/Vol]101 mmol/JUxibcw37-083TzjDuocno [place] HospitalComment on above:Performed By: #### GARNETT MACHINE OPERATOR HELPER #### [facility] ([id number]) [address], [address] [place], [place] [address]GR1 [Moles/Vol]28 mmol/JSbsjra81-10QtvRaaisbDetwiler Memorial Hospital Comment on above:Performed By: #### GARNETT MACHINE OPERATOR HELPER #### [facility] ([id number]) [address], [address] [place], [place] [address]Dlsvcoipha [Mass/Vol]0.41 mg/dLNormal0.40-1.00ProDunlap Memorial HospitalComment on above:Result Comment: METHOD TRACEABLE TO IDMS STANDARD Performed By: #### GARNETT MACHINE OPERATOR HELPER #### [facility] ([id number]) [address], [address] [place], [place] [address]sPTG (CKD-EPI) NON-RACE DEPENDENT>90Normal>59ProDunlap Memorial HospitalComment on above:Result Comment: Reported eGFR is based on the CKD-EPI 1 equation that does not use a race coefficient.Performed By: #### GARNETT MACHINE OPERATOR HELPER #### [facility] ([id number]) [address], [address] [place], [place] [address]Idxhqrr [Mass/Vol]85 mg/yEQljtya96-44NfjJwynbq [facility] Comment on above:Performed By: #### GARNETT MACHINE OPERATOR HELPER #### [facility] ([id number]) [address], [address] [place], [place] [address]Spshexaqr [Moles/Vol]3.4 mmol/LLow3.5-5.0ProDunlap Memorial HospitalComment on above:Performed By: #### GARNETT MACHINE OPERATOR HELPER #### [facility] ([id number]) [address], [address] [place] [address]Wneoggm [Mass/Vol]6.0 g/dLNormal6.0-8.0[facility] Comment on above:Performed By: #### GARNETT MACHINE OPERATOR HELPER #### [facility] ([id number]) [address], [address] [place] [address]Xfusix [Moles/Vol]139 mmol/JYscmcg627-244HkwDmbuwv [place] HospitalComment on above:Performed By: #### GARNETT MACHINE OPERATOR HELPER #### [facility] ([id number]) [address], [address] [place] [address]Cztv nitrogen [Mass/Vol]2 mg/dLLow5-23ProDun[facility] Comment on above:Performed By: #### GARNETT MACHINE OPERATOR HELPER #### [facility] ([id number]) [address], [address] [place], [place] [address]Jgpkjmvvkv Coagulation.derived (PPP) [Mass/Vol]on 01-15-2024 ZRNIPYBLVC513 mg/kTWpdi861-220FibTcgybk [place] HospitalComment on above: Performed By: #### GARNETT MACHINE OPERATOR HELPER #### [facility] ([id number]) [address], [address] [place] [address]HNQUHLMCTjy 92-30-9431Kfwhglxxq [Moles/Vol]3.5 mmol/LNormal 3.5-5.0ProDunlap Memorial HospitalComment on above:Performed By: #### GARNETT MACHINE OPERATOR HELPER #### [facility] ([id number]) [address], [address] [place], [place] [address]UEZAEKJ AND INRon 74-42-1454BIM Coag (PPP) [Relative time]1.6 {INR}High0.8-1.1ProMedica German HospitalComment on above:Performed By: #### GARNETT MACHINE OPERATOR HELPER #### [facility] ([id number]) [address], [address] [place], [place] [address]ZZ Coag (PPP) [Time]17.8 sHigh9.8-13.2PDetwiler Memorial Hospital Comment on above:Performed By: #### GARNETT MACHINE OPERATOR HELPER #### [facility] ([id number]) [address], [address] [place], [place] [address]uRME Coag (PPP) [Time]on 52-66-2330jAXO Coag (Bld) [Time]31 s Vopjby37-56GtyCncxoo [place] HospitalComment on above:Performed By: #### GARNETT MACHINE OPERATOR HELPER #### [facility] ([id number]) [address], [address] [address]JLOGK CULTUREon 00-18-2939Utwbadvb identified Aer cx Nom (Bld) SPECIMEN NOTES SUBOPTIMAL VOLUME OF BLOOD COLLECTED, RESULTS MAY BE AFFECTED. CULTURE RESULTS NO GROWTH 5 DAYSNormalKettering Health Washington Township HospitalComment on above:Performed By: #### 82911-1 #### [facility] ([id number]) [address], [address] [place] [address]Cdlqytph identified Aer cx Nom (Bld)SPECIMEN NOTES SUBOPTIMAL VOLUME OF BLOOD COLLECTED, RESULTS MAY BE AFFECTED. CULTURE RESULTS NO GROWTH 5 DAYSNormalProAccess Hospital Dayton HospitalComment on above:Performed By: #### GARNETT MACHINE OPERATOR HELPER #### [facility] ([id number]) [address], [address] [place] [address]IJH AND AUTO DIFFon 44-54-1455QFENIOZH BASOPHIL0.0 X10E9/LNormal 0.0-0.2PParma Community General Hospital HospitalComment on above:Performed By: #### CBCA, 02211- 7, PINR, 89074-0, CMP #### [facility] ([id number]) [address], [address] [place], [place] [address]NVGVDIXF NEUTROPHIL8.2 X10E9/LHigh1.5-6.6Pro[facility] Hospital [facility] HospitalComment on above:Performed By: #### CBCA, 51466-8, PINR, 69551-1, CMP #### [facility] ([id number]) [address], [address] [place], [place] [address]Smppgbhtg/100 WBC (Bld)0.2 %NormalMarietta Osteopathic Clinic Comment on above:Performed By: #### CBCA, 05538-2, PINR, 09551-9, CMP #### [facility] ([id number]) [address], [address] [place], [place] [address]Vgrvttwoety (Bld) [#/Vol]0.1 10*3/uLNormal0.0-0.4ProKnox Community Hospitalca German HospitalComment on above:Performed By: #### CBCA, 64986-2, PINR, 07809-7, CMP #### [facility] ([id number]) [address], [address] [place], [place] [address]Wrgthmpvthb/100 WBC (Bld)0.9 %NormalMarietta Osteopathic Clinic Comment on above:Performed By: #### CBCA, 22473-3, PINR, 37009-5, CMP #### [facility] ([id number]) [address], [address] [place], [place] [address]Zpsdhcijvrj distribution width (RBC) [Ratio]15.2 %High11.5-15.0 [facility] German HospitalComment on above:Performed By: #### CBCA, 50315-9, PINR, 25900-8, CMP #### [facility] ([id number]) [address], [address] [place], [place] [address]Rlmwyindrh (Bld) [Volume fraction]31.0 %Avd77-64KqpHvwzzyDunlap Memorial HospitalComment on above:Performed By: #### CBCA, 79178-9, PINR, 70356-9, CMP #### [facility] ([id number]) [address], [address] [place], [place] [address]Egdhyvrcmf (Bld) [Mass/Vol]10.3 g/dLLow11.7-15.5PParma Community General Hospital HospitalComment on above:Performed By: #### CBCA, 44328-9, PINR, 91992-7, CMP #### [facility] ([id number]) [address], [address] [place], [place] [address]Vfyvwnxmnvv (Bld) [#/Vol]1.3 10*3/uLNormal1.0-3.5PParma Community General Hospital HospitalComment on above:Performed By: #### CBCA, 43005-8, PINR, 57785-2, CMP #### [facility] ([id number]) [address], [address] [place], [place] [address]Wjvioaykgui/100 WBC (Bld)12.6 %NormalProAccess Hospital Dayton Hospital Comment on above:Performed By: #### CBCA, 19128-3, PINR, 90993-1, CMP #### [facility] ([id number]) [address], [address] [place], [place] [address]SKT (RBC) [Entitic mass]27.9 kaXobtcg71-47DaqUkdiaa [place] HospitalComment on above:Performed By: #### CBCA, 27968-6, PINR, 44374-6, CMP #### [facility] ([id number]) [address], [address] [place], [place] [address]ZVVQ (RBC) [Mass/Vol]33.2 g/rKZqzxvw74-54BcnVlpcae [place] HospitalComment on above:Performed By: #### CBCA, 11093-2, PINR, 08318-7, CMP #### [facility] ([id number]) [address], [address] [place], [place] [address]UTY (RBC) [Entitic vol]84 dKCfmhsy47-937KxePllsqw [place] HospitalComment on above:Performed By: #### CBCA, 83866-4, PINR, 25213-8, CMP #### [facility] ([id number]) [address], [address] [place], [place] [address]Yrzppgpsv (Bld) [#/Vol]0.9 10*3/uLNormal0-0.9Pro[facility] HospitalComment on above:Performed By: #### CBCA, 95095-8, PINR, 17783-2, CMP #### [facility] ([id number]) [address], [address] [place], [place] [address]Znfrgltpt/100 WBC (Bld)8.9 %NormalMarietta Osteopathic Clinic Comment on above:Performed By: #### CBCA, 97051-9, PINR, 60940-8, CMP #### [facility] ([id number]) [address], [address] [place], [place] [address]Ofsikgyvqcn/100 WBC (Bld)77.4 %NormalMarietta Osteopathic Clinic Comment on above:Performed By: #### CBCA, 51894-1, PINR, 98991-4, CMP #### [facility] ([id number]) [address], [address] [place], [place] [address]Tdshbeke mean volume (Bld) [Entitic vol]8.3 fLNormal7-12 [facility] HospitalComment on above:Performed By: #### CBCA, 26142-1, PINR, 46338-6, CMP #### [facility] ([id number]) [address], [address] [place], [place] [address]Yvtasxhmb (Bld) [#/Vol]250 10*3/xURaflrp455-129TccUvdmqn [facility] HospitalComment on above:Performed By: #### CBCA, 03284-8, PINR, 50788-3, CMP #### [facility] ([id number]) [address], [address] [place], [place] [address]GZH COUNT3.69 X10E12/LLow3.80-5.20[facility] Comment on above:Performed By: #### KIM, 96237-8, PINR, 50343-6, CMP #### [facility] ([id number]) [address], [address] [place], [place] [address]BBW (Bld) [#/Vol]10.5 10*3/uLNormal4.0-11.0Pro[facility] HospitalComment on above:Performed By: #### CBCKatharine, 19722-9, PINR, 75933-9, CMP #### [facility] ([id number]) [address], [address] [place], [place] [address]NVZBSNOGYTMIA METABOLIC PANELon 79-81-9264Hvrmywi [Mass/Vol]3.2 g/dLNormal3.2-5.3ProMedMer[facility] HospitalComment on above:Performed By: #### KIM, 57936-8, PINR, 29895-4, CMP #### [facility] ([id number]) [address], [address] [place], [place] [address]EGI [Catalytic activity/Vol]103 U/NVinxbz70-577SpvCqgswc [place] HospitalComment on above:Performed By: #### KIM, 30689-0, PINR, 48769-2, CMP #### [facility] ([id number]) [address], [address] [place], [place] [address]HHT [Catalytic activity/Vol]25 U/LNormal0-31ProMedMer[facility] HospitalComment on above:Performed By: #### CBCKatharine, 91918-9, PINR, 35796-1, CMP #### [facility] ([id number]) [address], [address] [place], [place] [address]Iuxwx gap [Moles/Vol]9 mmol/LNormal5-15Pro[facility] Comment on above:Performed By: #### CBCKatharine, 74001-4, PINR, 67546-1, CMP #### [facility] ([id number]) [address], [address] [place], [place] [address]NNZ [Catalytic activity/Vol]26 U/LNormal0-41ProDunlap Memorial HospitalComment on above:Performed By: #### CBCA, 17235-9, PINR, 14028-0, CMP #### [facility] ([id number]) [address], [address] [place], [place] [address]Vjisupwsk [Mass/Vol]0.6 mg/dLNormal0.3-1.2PParma Community General Hospital HospitalComment on above:Performed By: #### KIM, 79379-1, PINR, 92113-0, CMP #### [facility] ([id number]) [address], [address] [place], [place] [address]Iqvolve [Mass/Vol]8.2 mg/dLLow8.5-10.5PDetwiler Memorial Hospital Comment on above:Performed By: #### KIM, 55640-8, PINR, 07323-8, CMP #### [facility] ([id number]) [address], [address] [place], [place] [address]Qwwkqadd [Moles/Vol]102 mmol/FGvwvfy36-183PncPvtucq [place] HospitalComment on above:Performed By: #### KIM, 78118-3, PINR, 19223-6, CMP #### [facility] ([id number]) [address], [address] [place], [place] [address]PY3 [Moles/Vol]28 mmol/FAznpsd88-89RzoYhzderDetwiler Memorial Hospital Comment on above:Performed By: #### KIM, 39190-3, PINR, 26308-2, CMP #### [facility] ([id number]) [address], [address] [place], [place] [address]Eppevawahk [Mass/Vol]0.48 mg/dLNormal0.40-1.00Pro[facility] HospitalComment on above:Result Comment: METHOD TRACEABLE TO IDMS STANDARD Performed By: #### KIM, 97239-8, PINJoel, 62318-2, CMP #### [facility] ([id number]) [address], [address] [place], [place] [address]rZKJ (CKD-EPI) NON-RACE DEPENDENT>90Normal>59Pro[facility] HospitalComment on above:Result Comment: Reported eGFR is based on the CKD-EPI 1 equation that does not use a race coefficient.Performed By: #### KIM, 90822-1, PINJoel, 28085-3, CMP #### [facility] ([id number]) [address], [address] [place], [place] [address]Gzfeqox [Mass/Vol]92 mg/iYEdpctb23-44JpoHeadfu [facility] Comment on above:Performed By: #### KIM, 08138-6, PINJoel, 08085-9, CMP #### [facility] ([id number]) [address], [address] [place], [place] [address]Pljraconf [Moles/Vol]3.2 mmol/LLow3.5-5.0ProDunlap Memorial HospitalComment on above:Performed By: #### KIM, 15889-3, PINJoel, 81338-5, CMP #### [facility] ([id number]) [address], [address] [place], [place] [address]Eznndxi [Mass/Vol]6.6 g/dLNormal6.0-8.0[facility] Comment on above:Performed By: #### KIM, 98099-7, PINR, 94554-2, CMP #### [facility] ([id number]) [address], [address] [place], [place] [address]Phkwkw [Moles/Vol]139 mmol/CYtzgrg459-993YltEsfkxz [place] HospitalComment on above:Performed By: #### KIM, 12054-9, PINR, 50169-6, CMP #### [facility] ([id number]) [address], [address] [place], [place] [address]Kkrg nitrogen [Mass/Vol]3 mg/dLLow5-23Pro[facility] Comment on above:Performed By: #### CBCKatharine, 71707-3, PINR, 08409-0, CMP #### [facility] ([id number]) [address], [address] [place], [place] [address]Vnsbftqelg Coagulation.derived (PPP) [Mass/Vol]on 01-14-2024 GCZPJIICQS846 mg/bXFylh764-954PljMawldz [place] HospitalComment on above: Performed By: #### KIM, 35136-6, PINR, 05697-9, CMP #### [facility] ([id number]) [address], [address] [place], [place] [address]MGRGOIBSWfk 01-18-0750Cmmxuiswk [Moles/Vol]3.9 mmol/LNormal 3.5-5.0ProDunlap Memorial HospitalComment on above:Performed By: #### 2823-3 #### [facility] ([id number]) [address], [address] [place], [place] [address]IHJVNLU AND INRon 48-59-4289VZX Coag (PPP) [Relative time]1.2 {INR}High0.8-1.1PDetwiler Memorial HospitalComment on above:Performed By: #### CBCKatharine, 44055-5, PINR, 09522-2, CMP #### [facility] ([id number]) [address], [address] [place], [place] [address]LX Coag (PPP) [Time]14.3 sHigh9.8-13.2PDetwiler Memorial Hospital Comment on above:Performed By: #### CBCKatharine, 62448-5, PINR, 49416-5, CMP #### [facility] ([id number]) [address], [address] [place], [place] [address]lOJS Coag (PPP) [Time]on 35-98-4096aRKQ Coag (Bld) [Time]30 s Ypkibk55-17XnwIwmpeh German HospitalComment on above:Performed By: #### CBCA, 28690-8, PINR, 68960-6, CMP #### [facility] ([id number]) [address] [facility], [address] [place], [place] [address]OVGDwi 43-25-0677LAUVIDTBJ PARTIAL THROMBOPLASTIN TIME IN PPP BY COAGULATION ASSAY37.7 QxnuwrwClog51.0-35.0UnUpper Valley Medical Center Comment on above:Result Comment: Clinical significance of the APTT is questionable in the presence of heparin.Performed By: #### [id number] #### [facility] (BEAKER) [address] [place], [place] [address]RQFIF CULTUREon 40-89-0348Eonplvqk identified Cx Nom (Bld)No growth at 5 daysNormalUniversCleveland ClinicComment on above: Performed By: #### [id number] #### [facility] (BEAKER) [address] [place], [place] [address]PHI WITH AUTO DIFFERENTIALon 44-86-8998Cclvobavo (Bld) [#/Vol] 0.03 10*3/uLNormal0.00-0.20UnUpper Valley Medical CenterComment on above: Performed By: #### [id number] #### [facility] (BEAKER) [address] [place], [place] [address]Agyjtyiid/100 WBC (Bld)0.2 %Normal0.0-1.0UnUpper Valley Medical CenterComment on above:Performed By: #### [id number] #### [facility] (BEAKER) [address] [place], [place] [address]Ecjcofzgbjl (Bld) [#/Vol]0.05 10*3/uLNormal0.00-0.50UnUpper Valley Medical CenterComment on above:Performed By: #### [id number] #### [facility] (BEAKER) [address] [place] [address]Ikztppfvhdp/100 WBC (Bld)0.4 %Normal0.0-6.0UnUpper Valley Medical CenterComment on above:Performed By: #### [id number] #### [facility] ([facility]) [address] [place], [place] [address]Ynumvwwifcc distribution width (RBC) [Ratio]14.0 %Normal 11.5-15.0UnUpper Valley Medical CenterComment on above:Performed By: #### [id number] #### [facility] ([facility]) [address] [place], [place] [address]KHFASEIZZUR MEAN CORPUSCULAR HEMOGLOBIN CONCENTRATION (G/DL) BY EOESMUJVK15.9 g/zZIcpxvr31.0-35.0UnUpper Valley Medical CenterComment on above:Performed By: #### [id number] #### [facility] ([facility]) [address] [place], [place] [address]Lncufyffml (Bld) [Volume fraction]32.8 %Low36.0-48.0UnUpper Valley Medical CenterComment on above:Performed By: #### [id number] #### [facility] ([facility] [address] [place], [place] [address]Ioicfrzsbk (Bld) [Mass/Vol]10.8 g/dLLow12.0-15.0UnUpper Valley Medical CenterComment on above:Performed By: #### [id number] #### [facility] ([facility]) [address] [place], [place] [address]Oyryonme granulocytes (Bld) [#/Vol]0.05 10*3/uLNormal0.00-0.20 [facility] HealthComment on above:Performed By: #### [id number] #### [facility] (BEAKER) [address] [place], [place] [address]Yxpchmrw granulocytes/100 WBC (Bld)0.4 %Normal0.0-1.0UnUpper Valley Medical CenterComment on above:Performed By: #### [id number] #### [facility] ([facility]) [address] [place], [place] [address]Fjnywkiacfe (Bld) [#/Vol]1.38 10*3/uLNormal1.20-4.00UnUpper Valley Medical CenterComment on above:Performed By: #### [id number] #### [facility] ([facility]) [address] [place], [place] [address]Ozazvybjmxp/100 WBC (Bld)10.9 %Low20.0-45.0UnUpper Valley Medical CenterComment on above:Performed By: #### [id number] #### [facility] ([facility]) [address] [place] [place], [place] [address]PLV (RBC) [Entitic mass]27.6 ibNwqglr18.0-33.0UnUpper Valley Medical CenterComment on above:Performed By: #### [id number] #### [facility] ([facility]) [address] [facility] [place], [place] [address]YDM (RBC) [Entitic vol]83.7 iKSmtcmd68.0-98.0UnUpper Valley Medical CenterComment on above:Performed By: #### [id number] #### [facility] ([facility]) [address] [place], [place] [address]Hcuyxuzuk (Bld) [#/Vol]0.98 10*3/uLNormal0.10-1.00UnUpper Valley Medical CenterComment on above:Performed By: #### [id number] #### [facility] ([facility]) [address] [place], [place] [address]Cllvolayw/100 WBC (Bld)7.8 %Normal5.0-12.0UnUpper Valley Medical CenterComment on above:Performed By: #### [id number] #### [facility] ([facility]) [address] [place], [place] [address]Gnvcqhmyvkq (Bld) [#/Vol]10.15 10*3/uLHigh1.60-7.60UnUpper Valley Medical CenterComment on above:Performed By: #### [id number] #### [facility] ([facility]) [address] [place] [address]Dhkftlyhjnh/100 WBC (Bld)80.3 %High40.0-72.0UnUpper Valley Medical CenterComment on above:Performed By: #### [id number] #### [facility] ([facility]) [address] [place] [address]QGHC (PER 100 WBCS) BY AUTOMATED COUNT0.0 %Tnbdyz4VnwpflwepiUpper Valley Medical CenterComment on above:Performed By: #### [id number] #### [facility] ([facility]) [address] [place] [address]XNOJHRUUR (10*3/UL) IN BLOOD AUTOMATED [id number] 10*3/uLNormal 150-400UnUpper Valley Medical CenterComment on above:Performed By: #### [id number] #### [facility] ([facility]) [address] [place] [address]UHH (Bld) [#/Vol]3.92 10*6/uLNormal3.80-5.00UnUpper Valley Medical CenterComment on above:Performed By: #### [id number] #### [facility] ([facility]) [address] [place] [address]QNU (Bld) [#/Vol]12.64 10*3/uLHigh4.00-10.60UnUpper Valley Medical CenterComment on above:Performed By: #### [id number] #### [facility] ([facility]) [address] [place], [place] [address]MQYASRFVRNOCI METABOLIC PANELon [id number] [Mass/Vol]3.7 g/dLNormal3.5-5.7UnUpper Valley Medical CenterComment on above:Performed By: #### [id number] #### [facility] ([facility]) [address] [place], [place] [address]WRN [Catalytic activity/Vol]115 U/LPsqw11-614GuqazeprhlUpper Valley Medical CenterComment on above:Performed By: #### [id number] #### [facility] ([facility]) [address] [place], [place] [address]MQH [Catalytic activity/Vol]30 U/LNormal7-52UnUpper Valley Medical CenterComment on above:Performed By: #### [id number] #### [facility] ([facility]) [address] [place], [place] [address]Wuzou gap [Moles/Vol]13 mmol/LNormal7-20UnUpper Valley Medical CenterComment on above:Performed By: #### [id number] #### [facility] ([facility]) [address] [place], [place] [address]VAR [Catalytic activity/Vol]30 U/BDelwgd37-92IzjuygmiyuUpper Valley Medical CenterComment on above:Performed By: #### [id number] #### [facility] ([facility]) [address] [place], [place] [address]Ltmgckyfj [Mass/Vol]0.6 mg/dLNormal0.3-1.0UnUpper Valley Medical CenterComment on above:Performed By: #### [id number] #### [facility] ([facility]) [address] [place], [place] [address]Vrhijni [Mass/Vol]8.8 mg/dLNormal8.6-10.3UnUpper Valley Medical CenterComment on above:Performed By: #### [id number] #### [facility] ([facility]) [address] [place], [place] [address]Hvggzswz [Moles/Vol]94 mmol/JUvm56-532HmagoboneaUpper Valley Medical CenterComment on above:Performed By: #### [id number] #### [facility] ([facility]) [address] [place], [place] [address]QI0 [Moles/Vol]32 mmol/HAyty39-44ActivqisubUpper Valley Medical CenterComment on above:Performed By: #### [id number] #### [facility] ([facility]) [address] [place] [address]Dvpesrmzir [Mass/Vol]0.69 mg/dLNormal0.60-1.20UnUpper Valley Medical CenterComment on above:Performed By: #### [id number] #### [facility] ([facility]) [address] [place] [address]CIEQCERUSP FILTRATION RATE ML/MIN/1.73 SQ M.QNUSUSTMK780.2 mL/min/1.73m*2Normal>60.0UnUpper Valley Medical CenterComment on above: Result Comment: [facility]???s estimated glomerular filtration rate (eGFR) will no [...] potential consequences that do not disproportionately affect anyone group of individuals.Performed By: #### [id number] #### [facility] ([facility]) [address] [place] [address]Syjjbng [Mass/Vol]77 mg/dFNvpmrm85-702DmnomawsevUpper Valley Medical CenterComment on above:Performed By: #### [id number] #### [facility] ([facility]) [address] [place] [address]Qzmlyrtqu [Moles/Vol]2.7 mmol/LInvalid Interpretation Code 3.5-5.1UnUpper Valley Medical CenterComment on above:Performed By: #### [id number] #### [facility] ([facility]) [address] [place] [address]Vuuhhpz [Mass/Vol]7.9 g/dLNormal6.0-8.3UnUpper Valley Medical CenterComment on above:Performed By: #### [id number] #### [facility] ([facility]) [address] [place], [place] [address]Wtfjwv [Moles/Vol]136 mmol/ZDgzfgb248-255QvdrfgjhjyUpper Valley Medical CenterComment on above:Performed By: #### [id number] #### [facility] ([facility]) [address] [place], [place] [address]Mqwz nitrogen [Mass/Vol]9 mg/dLNormal7-25UnUpper Valley Medical CenterComment on above:Performed By: #### [id number] #### [facility] [facility] ([facility]) [address] [place], [place] [address]HNDY NITROGEN/CREATININE (MASS RATIO) IN SER/PLAS13.0Normal Madison HealthComment on above:Performed By: #### [id number] #### [facility] ([facility]) [address] [place], [place] [address]FFIMDPKDAPtm 67-59-8713Dfuxsxtdyg [Mass/Vol]0.53 mg/dLNormal 0.40-1.00ProDunlap Memorial HospitalComment on above:Result Comment: METHOD TRACEABLE TO IDMS STANDARDPerformed By: #### GARNETT MACHINE OPERATOR HELPER #### [facility] ([id number]) [address], [address] [place], [place] [address]cBBD (CKD-EPI) NON-RACE DEPENDENT>90Normal>59ProDunlap Memorial HospitalComment on above:Result Comment: Reported eGFR is based on the CKD-EPI 2020 equation that does not use a race coefficient.Performed By: #### GARNETT MACHINE OPERATOR HELPER #### [facility] ([id number]) [address], [address] [place], [place] [address]BK ABDOMEN PELVIS W IV CONTRASTon [id number] ABDOMEN PELVIS W IV CONTRASTCT ABDOMEN PELVIS W IV CONTRAST 01/13/2024 3:20 [...] as reasonably achievable Electronically signed: Arsalan Bales MD.[facility] Anderson HospitalCTA CHEST W IV CONTRASTon [phone] CHEST W IV CONTRASTCTA CHEST W IV CONTRAST 01/13/2024 3:20 PM [...] as reasonably achievable Electronically signed: Arsalan Bales MD.[facility] SystemNURSon [phone] of arrival (squad #, walk in, police, etc): Walk in Chief complaint(s): Chest pain/post op problem Arrival Note (brief scenario, treatment 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 Pt is also is having some chest pain that has been on and off. She stated this is the worse that she has had it.[facility] on 20-44-8583IHTHKIFSE Chief Complaint Patient presents with Chest Pain Post-op Problem Pt is a 28yo F who states she had a total hysterectomy on 11/20/23 and has been having complications with increasing pain since. 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 Pt states she is now running a fever of 102 and endorses chills, body aches and chest pain which began last night. Denies vaginal bleeding/discharge, n/v/d, urinary complaints. History provided by: Patient [place] Coma Scale Score: 15 Patient History No [...] [address] Linn at [facility], he accepted pt for transfer. [BM] ED Course User Index [BM] Divine Coleman NP Diagnoses as of 01/14/242229 Pelvic abscess in female Sepsis without acute organ dysfunction, due to unspecified organism ([facility]) Medical Decision Making Attestion Divine Coleman NP 01/14/242230NormalUniversity The MetroHealth SystemLACTIC ACID WITH 4 HOUR REFLEXon 64-91-3006UJKBUHE (MMOL/L) IN SER/PLAS1.3 mmol/LNormal0.5-2.2UnUpper Valley Medical CenterComment on above:Performed By: #### [id number] #### [facility] ([facility]) [address] [place], [place] [address]YYNXFISRPpa 84-47-3423Kmsthytui [Mass/Vol]2.5 mg/dLNormal1.9-2.7 Madison HealthComment on above:Performed By: #### [id number] #### [facility] ([facility]) [address] [place], [place] [address]UWP CHEM7 W/ HCTon 78-92-4689Drixgrlg [Moles/Vol]99 mmol/LNormal 98-109ProDunlap Memorial HospitalComment on above:Performed By: #### [id number] #### [facility] ([id number]) [address] [place], [place] [address]HT9 [Moles/Vol]27 mmol/PDyfzjj31-18WxrOzrxoe [facility] Comment on above:Performed By: #### [id number] #### [facility] ([id number]) [address] [place], [place] [address]Zhecejgdvu [Mass/Vol]0.6 mg/dLNormal0.4-1.0ProDunlap Memorial HospitalComment on above:Result Comment: METHOD TRACEABLE TO IDMS STANDARD Performed By: #### [id number] #### [facility] ([id number]) [address] [place], [place] [address]nSGD (CKD-EPI) NON-RACE DEPENDENT>90Normal>59ProDunlap Memorial HospitalComment on above:Result Comment: Reported eGFR is based on the CKD-EPI 2020 equation that does not use a race coefficient.Performed By: #### [id number] #### [facility] ([id number]) [address] [place], [place] [address]Ngzvebp [Mass/Vol]98 mg/uGDmyfpi30-10ByrSpbkhmMarietta Osteopathic Clinic Comment on above:Performed By: #### [id number] #### [facility] ([id number]) [address] [place], [place] [address]Hhwoimcdvd (Bld) [Volume fraction]29 %Snd08-15PglTgbfgbDunlap Memorial HospitalComment on above:Performed By: #### [id number] #### [facility] ([id number]) [address] [place], [place] [address]JIIAPDYD BUN<3Ckt2-85QaqQtlhzoDunlap Memorial HospitalComment on above: Performed By: #### [id number] #### [facility] ([id number]) [address] [place], [place] [address]Fsvisofpz [Moles/Vol]2.9 mmol/LLow3.5-5.0ProDunlap Memorial HospitalComment on above:Performed By: #### [id number] #### [facility] ([id number]) [address] [place], [place] [address]Jdlpbt [Moles/Vol]138 mmol/CHvvibn195-336QjyDmxpbw [facility] HospitalComment on above:Performed By: #### [id number] #### [facility] ([id number]) [address] [place], [place] [address]BFADYNWUDnj 42-01-8462Qdewpmxem [Moles/Vol]3.1 mmol/LLow3.5-5.0 ProMKing's Daughters Medical Center OhioComment on above:Performed By: #### [id number] #### [facility] ([id number]) [address], [address] [place], [place] [address]QYVFDZA-OSExy 30-93-1430UOU IN PPP BY COAGULATION ASSAY1.12High 0.90-1.10UnUpper Valley Medical CenterComment on above:Result Comment: ACC[facility] RECOMMENDED INR FOR WARFARIN THERAPY CONDITION INR PROPHYLAXIS OF VENOUS THROMBOSIS 2-3 (HIGH-RISK SURGERY) TREATMENT OF VENOUS THROMBOSIS 2-3 TREATMENT OF PULMONARY EMBOLISM 2-3 PREVENTION OF SYSTEMIC EMBOLISM: 2-3 ACUTE MYOCARDIAL INFARCTION TISSUE HEART VALVES VALVULAR HEART DISEASE ATRIAL FIBRILLATION RECURRENT SYSTEMIC EMBOLISM MECHANICAL HEART VALVE 2.5-3.5 FROM: ORAL ANTICOAGULANTS. MECHANISM OF ACTION, CLINICAL EFFECTIVENESS, AND OPTIMAL THERAPEUTIC RANGE. CHEST 1995;108:231S-246S.Performed By: #### [id number] #### [facility] ([facility]) [address] [place], [place] [address]AALMBBBRPYZ TIME (PT) IN PPP BY COAGULATION ASSAY14.4 Seconds Ulised63.3-14.8Madison HealthComment on above:Performed By: #### [id number] #### [facility] ([facility]) [address] [place], [place] [address]EJSFBRIR Ion 87-84-4805Ewoyypca I.cardiac [Mass/Vol]0.02 ng/mL Normal0.00-0.04UnUpper Valley Medical CenterComment on above:Performed By: #### [id number] #### [facility] ([facility]) [address] [place], [place] [address]KLVFXDAFUN MICROSCOPIC WITH REFLEX CULTUREon 85-77-7263AJOVL IN URINENormalUniGrant HospitalComment on above:Performed By: #### [id number] #### [facility] ([facility]) [address] [place], [place] [address]MASHARWZ IN URINENormalUniGrant Hospital Comment on above:Performed By: #### [id number] #### [facility] ([facility]) [address] [place], [place] [address]MJAKS (#/HPF) IN URINE SEDIMENTManyAbnormalNone Seen, Occasional, FewUnUpper Valley Medical CenterComment on above:Performed By: #### [id number] #### [facility] ([facility]) [address] [place], [place] [address]FKYIB MICROSCOPIC ELEMENTSNormalUniversCleveland ClinicComment on above:Performed By: #### [id number] #### [facility] ([facility]) [address] [place], [place] [address]QIJ (#/HPF) IN URINE SEDIMENT6-10AbnormalNone SeenMadison HealthComment on above:Performed By: #### [id number] #### [facility] ([facility]) [address] [place], [place] [address]ARSJXKMX EPITHELIAL CELLS (#/HPF) IN URINE SEDIMENTModerate AbnormalNone Seen, OccasionalUnUpper Valley Medical CenterComment on above:Performed By: #### [id number] #### [facility] ([facility]) [address] [place], [place] [address]ISN (LEUKOCYTE) (#/HPF) IN URINE EMNFJHWY03-03KefnxpyqLzyx Seen Madison HealthComment on above:Performed By: #### [id number] #### [facility] ([facility]) [address] [place], [place] [address]CXBCHRUCNH WITH REFLEX CULTUREon 64-49-5440MZXSDAJFG, TOTAL PRESENCE IN URINENegativeNoonslow memorial hospitalNegProMedica Memorial Hospital Comment on above:Performed By: #### [id number] #### [facility] ([facility]) [address] [place], [place] [address]Plioqkn (U)Slightly CloudyAbnormalClearMadison HealthComment on above:Performed By: #### [id number] #### [facility] ([facility]) [address] [place], [place] [address]Hypmo (U)AmberAbnormalYellowMadison Health Comment on above:Performed By: #### [id number] #### [facility] ([facility]) [address] [place], [place] [address]Bhclbjl (U) [Mass/Vol]NegativeNormalNegProMedica Memorial HospitalComment on above:Performed By: #### [id number] #### [facility] ([facility]) [address] [place], [place] [address]CDAMBNXFOV PRESENCE IN URINESmallAbnormhiNegProMedica Memorial HospitalComment on above:Performed By: #### [id number] #### [facility] ([facility]) [address] [place], [place] [address]Xvgohik Ql (U)NegativeNormalNegativeUnUpper Valley Medical CenterComment on above:Performed By: #### [id number] #### [facility] ([facility]) [address] [place], [place] [address]DKOUGLZNA ESTERASE PRESENCE IN URINE BY TEST STRIPSmallAbnormal NegativeUnUpper Valley Medical CenterComment on above:Performed By: #### [id number] #### [facility] ([facility]) [address] [place], [place] [address]DTATXRL PRESENCE IN URINENegativeNormalNegativeUnUpper Valley Medical CenterComment on above:Performed By: #### [id number] #### [facility] ([facility]) [address] [place], [place] [address]zR (U)5.0 [pH]Normal5.0-8.0UnUpper Valley Medical Center Comment on above:Performed By: #### [id number] #### [facility] ([facility]) [address] [place], [place] [address]Bvpzzkb (U) [Mass/Vol]30 mg/dLAbnormhiNegativeUnUpper Valley Medical CenterComment on above:Performed By: #### [id number] #### [facility] ([facility]) [address] [place], [place] [address]Paxvyjln gravity (U) [Rel density]1.036Zbrezt9.015-1.020 Madison HealthComment on above:Performed By: #### [id number] #### [facility] ([facility]) [address] [place], [place] [address]CCIKXKJBPVSB (EU/DL) IN URINE4.0 EU/dLAbnormhiNegativeUnUpper Valley Medical CenterComment on above:Performed By: #### [id number] #### [facility] ([facility]) [address] [place], [place] [address]Eaxbmnegs partial thromboplastin time (aPTT) in platelet poor plasma by coagulation aOrdered By: Nikhil Quiñones on 64-46-5858iXUJ Coag (PPP) [Time]35.0 s25.1-36.5FOhioHealth Grove City Methodist HospitalComment on above:A hematocrit value greater than 55% may lead to inaccurate results in coagulation testing. Patientshaving hematocrit values >55% require a special collection tube for coagulation studies. Please contact the laboratory at [phone] for redraw instructions.Alanine aminotransferase [Enzymatic activity/volume] in Serum or PlasmaOrdered By: Nikhil Quiñones on 50-99-7316TFC [Catalytic activity/Vol]13 U/L7-52C[facility] Avon HospitalAlbumin [Mass/volume] in Serum or Plasma by Bromocresol green (BCG) dye binding methoOrdered By: Nikhil Quiñones on 30-98-6062Fkocpcb BCG dye [Mass/Vol]4.4 g/dL3.5-5.7FOhioHealth Grove City Methodist HospitalAlkaline phosphatase [Enzymatic activity/volume] in Serum or PlasmaOrdered By: Nikhil Quiñones on 14-82-3764PYQ [Catalytic activity/Vol]66 U/L 34-104C[facility] Clinic Avon HospitalAspartate aminotransferase [Enzymatic activity/volume] in Serum or PlasmaOrdered By: Nikhil Quiñones on 06-58-0232BTU [Catalytic activity/Vol]16 U/N17-91YkjgruckrCleveland Clinic Avon HospitalBasophils Auto (Bld) [#/Vol]Ordered By: Nikhil Quiñones 67-53-6014Fxdnlufou (Bld) [#/Vol] 0.0 10*3/uL0.0-0.2FOhioHealth Grove City Methodist HospitalBasophils/100 WBC Auto (Bld) Ordered By: Nikhil Quiñones 39-94-3639Momopqsri/100 WBC (Bld)0.4 %.[facility] HospitalBilirubin Test strip Ql (U)Ordered By: Nikhil Quiñones on 23-53-4112Mqccohwmw Ql (U)NegativeNegativeCleveland Clinic Avon Hospital Bilirubin.direct [Mass/volume] in Serum or PlasmaOrdered By: Nikhil Quiñones on 75-71-8721Lzbguehpx.direct [Mass/Vol]0.00 mg/dLLow0.03-0.18Firelands Regional Medical CenterComment on above:If the DBIL is less than 0.1, IBIL is not able to becalculated.Bilirubin.total [Mass/volume] in Serum or PlasmaOrdered By: Nikhil Quiñones on 49-81-8508Wtoqngahu [Mass/Vol]0.3 mg/dL0.3-1.0[facility] HospitalCOVID CepheidOrdered By: Nikhil Quiñones on 79-95-9373ZXFS-CoV-2 (COVID-19) Ab IA QlNegativeNegativeCleveland Clinic Avon HospitalComment on above:This is a duplicate Cepheid Xpert Xpress CoV-2/Flu/RSV Plus RNA by RT-PCR result to be used for statistical tracking purpose only.SARS-CoV-2 (COVID-19) RNA MARICEL+probe Ql (Unsp spec)[facility] HospitalCalcium [Mass/volume] in Serum or PlasmaOrdered By: Nikhil Quiñones on 88-79-2259Zhukffn [Mass/Vol]9.5 mg/dL8.6-10.3FOhioHealth Grove City Methodist HospitalCarbon dioxide, total [Moles/volume] in Serum or PlasmaOrdered By: Nikhil Quiñones on 95-75-9201SG8 [Moles/Vol]27.6 mmol/L21.0-31.0[facility] HospitalChloride [Moles/volume] in Serum or PlasmaOrdered By: Nikhil Quiñones on 14-13-0405Ymcwyewt [Moles/Vol]102 mmol/N94-832QzdrkqwsbCleveland Clinic Avon HospitalColor Auto (U) Ordered By: Nikhil Quiñones on 61-00-3379Xyrov (U)YellowYellowCleveland Clinic Avon HospitalCreatinine [Mass/volume] in Serum or PlasmaOrdered By: Nikhil Quiñones on 40-38-6391Mtgqiluxlm [Mass/Vol]0.63 mg/dL0.60-1.20[facility] HospitalEosinophils Auto (Bld) [#/Vol]Ordered By: Nikhil Quiñones on 24-29-3694Aiwktrnzrnf (Bld) [#/Vol]0.0 10*3/uL0.0-0.45[facility] HospitalEosinophils/100 WBC Auto (Bld)Ordered By: Nikhil Quiñones on 01-08-2024 Eosinophils/100 WBC (Bld)0.1 %.[facility]on HospitalErythrocyte distribution width Auto (RBC) [Ratio]Ordered By: Nikhil Quiñones on 01-08-2024 Erythrocyte distribution width (RBC) [Ratio]15.2 %11.9-15.3FOhioHealth Grove City Methodist HospitalGlobulin Calc (S) [Mass/Vol]Ordered By: Nikhil Quiñones 01-08-2024 Globulin (S) [Mass/Vol]3.4 g/dLCleveland Clinic Avon HospitalGlucose [Mass/volume] in Serum or PlasmaOrdered By: Nikhil Quiñones on 23-52-5987Gdlhmnb [Mass/Vol]90 mg/uO52-454GlhscinmwCleveland Clinic Avon HospitalComment on above:ADA recommended reference rangeRandom Glucose Reference Range is dependent on time and content of last meal. Glucose of more than 200 mg/dL in a nonstressed, ambulatory subject supports the diagnosisof Diabetes Mellitus.Hematocrit Auto (Bld) [Volume fraction]Ordered By: Nikhil Quiñones 24-01-2088Nslgzfptcs (Bld) [Volume fraction]36.5 %34.0-46.4FOhioHealth Grove City Methodist HospitalHemoglobin [Mass/volume] in BloodOrdered By: Nikhil Quiñones 79-31-1581Vtbvafikot (Bld) [Mass/Vol]12.2 g/dL11.8-15.4FOhioHealth Grove City Methodist HospitalINR in Platelet poor plasma by Coagulation assayOrdered By: Nikhil Quiñones 75-11-8195ERI Coag (PPP) [Relative time]1.2 {INR}[facility] HospitalComment on above: INR Therapeutic Range A) Pre- and Peroperative [...] By: Nikhil Quiñones on 01-08-2024 Ketones (U) [Mass/Vol]NegativeNegativeCleveland Clinic Avon HospitalLactate [Moles/volume] in Serum or PlasmaOrdered By: Nikhil Quiñones on 04-01-6225Yizhnuq [Moles/Vol]0.6 mmol/L0.5-2.2FOhioHealth Grove City Methodist HospitalLeukocytes [#/volume] corrected for nucleated erythrocytes in Blood by Automated coun Ordered By: Nikhil Quiñones on 83-47-6603IMX corrected for nucl RBC Auto (Bld) [#/Vol]7.6 10*3/uL3.8-11.6FOhioHealth Grove City Methodist HospitalLipase [Enzymatic activity/volume] in Serum or PlasmaOrdered By: Nikhil Quiñones on 32-30-7337Xxbkvj [Catalytic activity/Vol]10.0 U/LLow11.0-82.0[facility] Lymphocytes Auto (Bld) [#/Vol]Ordered By: Nikhil Quiñones on 77-32-2882Kbjilxrjecs (Bld) [#/Vol]1.1 10*3/uL1.00-4.8[facility] HospitalLymphocytes/100 WBC Auto (Bld)Ordered By: Nikhil Quiñones on 58-40-9878Goegickrfcu/100 WBC (Bld) 14.9 %.[facility] Auto (RBC) [Entitic mass]Ordered By: Nikhil Quiñones on 94-67-9925ESH (RBC) [Entitic mass]27.6 pg24.7-34.3FKettering Health TroyHC Auto (RBC) [Mass/Vol]Ordered By: Nikhil Quiñones on 24-83-9348ADQE (RBC) [Mass/Vol]33.5 g/dL32.0-35.0[facility] HospitalMCV Auto (RBC) [Entitic vol]Ordered By: Nikhil Quiñones on 43-12-5918XCA (RBC) [Entitic vol]82.4 lV83-412CpxyowzrcCleveland Clinic Avon HospitalMonocyte distribution width [Entitic volume] in Blood by AutomatedOrdered By: Nikhil Quiñones on 74-50-5834Oekimjsu distribution width Auto (Bld) [Entitic vol]21.47 % High0.00-20.00[facility] HospitalComment on above:For adults in ED, MDW > 20.0 may be associated with a higher risk of sepsis during the first 12 hrs of hospital admissionMonocytes Auto (Bld) [#/Vol]Ordered By: Nikhil Quiñones on 68-87-3780Somqkxvzy (Bld) [#/Vol]0.6 10*3/uL0.0-0.8[facility] HospitalMonocytes/100 WBC Auto (Bld)Ordered By: Nikhil Quiñones on 01-08-2024 Monocytes/100 WBC (Bld)8.0 %.[facility] HospitalNeutrophils Auto (Bld) [#/Vol]Ordered By: Nikhil Quiñones on 39-60-9173Nizxkyxjjxr (Bld) [#/Vol]5.8 10*3/uL1.8-7.7FOhioHealth Grove City Methodist HospitalNeutrophils/100 WBC Auto (Bld) Ordered By: Nikhil Quiñones on 64-71-2562Glhebvcfsgp/100 WBC (Bld)76.6 %.[facility] HospitalNitrite Test strip Ql (U)Ordered By: Nikhil Quiñones on 35-96-9941Zhvnbtv Ql (U)NegativeNegativeCleveland Clinic Avon HospitalNo Panel InformationOrdered By: Nikhil Quiñones on 70-12-7039Vfrkffjkz GFR (CKD-EPI)> 60.0 mL/MinCleveland Clinic Avon HospitalPharmacy Creatinine Clearance (Chem 127.27[facility] HospitalNucleated erythrocytes [Presence] in Blood by Automated countOrdered By: Nikhil Quiñones on 07-59-7261Ftuwbxbyr RBC Auto Ql (Bld)0.1 /100{WBC}0-0.5FOhioHealth Grove City Methodist HospitalPlatelet mean volume Auto (Bld) [Entitic vol]Ordered By: Nikhil Quiñones on 62-02-8395Jekaeobm mean volume (Bld) [Entitic vol]8.5 fL6.3-10.7FOhioHealth Grove City Methodist Hospital Platelets Auto (Bld) [#/Vol]Ordered By: Nikhil Quiñones on 41-30-7264Mmdnhswyd (Bld) [#/Vol]228 10*3/kA534-012KohohitxxCleveland Clinic Avon HospitalPotassium [Moles/volume] in Serum or PlasmaOrdered By: Nikhil Quiñones on 96-24-1546Njasukecz [Moles/Vol]3.7 mmol/L3.5-5.1FOhioHealth Grove City Methodist HospitalProtein Auto test strip (U) [Mass/Vol]Ordered By: Nikhil Quiñones on 07-89-7832Tuygvgr (U) [Mass/Vol] NegativeNegativeCleveland Clinic Avon HospitalProtein [Mass/volume] in Serum or PlasmaOrdered By: Nikhil Quiñones on 74-60-5169Quhouei [Mass/Vol]7.8 g/dL6.4-8.9 [facility] HospitalProthrombin time (PT)Ordered By: Nikhil Quiñones on 89-51-5567IG Coag (PPP) [Time]13.8 sHigh9.0-12.9[facility] HospitalComment on above:A hematocrit value greater than 55% may lead to inaccurate results in coagulation testing. Patientshaving hematocrit values >55% require a special collection tube for coagulation studies. Please contact the laboratory at [phone] for redraw instructions.RBC Auto (Bld) [#/Vol]Ordered By: Nikhil Quiñones on 03-12-6679CYU (Bld) [#/Vol]4.43 10*6/uL3.60-5.00K[facility]tering Health Prebleerum or plasma albumin/globulin mass ratioOrdered By: Nikhil Quiñones 21-49-4555Dwkuanb/Globulin [Mass ratio]1.3 {ratio}[facility] Health Prebleerum or plasma anion gap determinationOrdered By: Nikhil Quiñones 31-61-9011Huwja gap [Moles/Vol]12.1 mmol/L6.0-15.0[facility] Health Prebleerum or plasma non-glucuronidated bilirubin measurement (mass/volume)Ordered By: Nikhil Quiñones 32-36-7636Ztowxyyuc.indirect [Mass/Vol] 0.3 mg/dLKettering Health Prebleodium [Moles/volume] in Serum or PlasmaOrdered By: Nikhil Quiñones 06-71-5334Jnomwf [Moles/Vol]138 mmol/W493-561 [facility] Preblepecific gravity Auto test strip (U) [Rel density]Ordered By: Nikhil Quiñones 20-01-1596Wixupipc gravity (U) [Rel density] 1.0131.001-1.030[facility] HospitalTrichomonas vaginalis detection by wet preparationOrdered By: Nikhil Quiñones on 01-08-2024T. vaginalis Wet prep Ql (Unsp spec)[facility] HospitalUrea nitrogen [Mass/volume] in Serum or PlasmaOrdered By: Nikhil Quiñones on 32-00-4294Wmpm nitrogen [Mass/Vol]7 mg/dL 7-25[facility] HospitalUrine clarity by refractometry automated Ordered By: Nikhil Quiñones on 81-33-4278Cghqwqz Refractometry automated (U)Clear ClearCleveland Clinic Avon HospitalUrine glucose measurement by automated test strip (mass/volume)Ordered By: Nikhil Quiñones on 17-38-2072Bwxroav Auto test strip (U) [Mass/Vol]Normal mg/dLNormWexner Medical CenterUrine hemoglobin detection by automated test stripOrdered By: Nikhil Quiñones on 56-68-8190Saqwjgywav Auto test strip Ql (U)NegativeNegativeCleveland Clinic Avon HospitalUrine leukocyte esterase detection by automated test stripOrdered By: Nikhil Quiñones on 66-98-7769Eupepmwyx esterase Auto test strip Ql (U)Negative NegativeCleveland Clinic Avon HospitalUrobilinogen Auto test strip (U) [Mass/Vol]Ordered By: Nikhil Quiñones on 41-88-3534Zkxfbyavuezj (U) [Mass/Vol] Normal mg/dLNormWexner Medical CenterWBC Auto (Bld) [#/Vol]Ordered By: Nikhil Quiñones on 49-88-0544XBD (Bld) [#/Vol]7.6 10*3/uL3.8-11.6FOhioHealth Grove City Methodist HospitalpH Auto test strip (U)Ordered By: Nikhil Quiñones on 66-22-3060hX (U)7.0 [pH]5.0-9.0[facility] HospitalCoding Summaryon 88-73-9597Yedwfc SummaryHTMLBase 64 SgvqkkukODn5fGt+PGhlYWQ+ZD3VOHMwZ60nqHQpeW1vT5QUBZmOKhqeCGJBZIkGGaCvjtUxKW0zvHAt ZXJu [file] ZXI (more content not included)...NormalOhiohealth Arthur G.H. Bing, Md, Cancer Center Hospital.Auto Diff 1on 06-00-3177Sbbx [place] %8 %Normal1-12[facility] HospitalComment on above:Performed By: #### [id number], [id number], [id number], [id number], [id number], [id number] #### [facility] (DEFAULT) [address] [place] [address]Adgf Abs#0.0 f67Mpembq0.0-0.2Msouthwest general health center HospitalComment on above:Performed By: #### [id number], [id number], [id number], [id number], [id number], [id number] #### [facility] (DEFAULT) [address] [place] [address]Jksligwwh/100 WBC (Bld)0.5 %Normal0.2-2.0[facility] Comment on above:Performed By: #### [id number], [id number], [id number], [id number], [id number], [id number] #### [facility] (DEFAULT) [address] [place] [address] 05476Wag Abs#0.0 k40Kayhzp7.0-0.4[facility] HospitalComment on above:Performed By: #### [id number], [id number], [id number], [id number], [id number], [id number] #### [facility] (DEFAULT) [address] [place] [address] 51100Shthbbzjyeg/100 WBC (Bld)0.5 %Low0.9-4.0[facility] Comment on above:Performed By: #### [id number], [id number], [id number], [id number], [id number], [id number] #### [facility] (DEFAULT) [address] [place] [address] 44035Wpplz Abs#1.9 t00Pkupbq2.3-2.9[facility] HospitalComment on above:Performed By: #### [id number], [id number], [id number], [id number], [id number], [id number] #### [facility] (DEFAULT) [address] [place] [address] 09895Nmghmtdnrnl/100 WBC (Bld)32 %[facility]ybjlf52-68[facility] Comment on above:Performed By: #### [id number], [id number], [id number], [id number], [id number], [id number] #### [facility] (DEFAULT) [address] [place] [address] 09384Hybf Abs#0.4 o35Lebnfx0.0-0.8[facility] HospitalComment on above:Performed By: #### [id number], [id number], [id number], [id number], [id number], [id number] #### [facility] (DEFAULT) [address] [place] [address] 84392Vdei Abs#3.5 m80Disrnw5.5-9.2[facility] HospitalComment on above:Performed By: #### [id number], [id number], [id number], 79535937, 0178461367, [id number] #### [facility] (DEFAULT) [address] [place] [address] 13231Mqjplkbbckz/100 WBC (Bld)59 %Rrudme52-29Qxblingf Hospital Comment on above:Performed By: #### [id number], 7496588284, 1338920361, 27135711, 5122971414, 5426605 #### [facility] (DEFAULT) [address] [place] [address] 94723RMB w/ Auto Diffon 63-00-3873Jmzjlqshjeb distribution width (RBC) [Ratio]15.9 %High11.5-15.0[facility] HospitalComment on above: Performed By: #### [id number], [id number], 8307924389, 11649853, 2108674383, 7591682 #### [facility] (DEFAULT) [address] [place] [address] 94519Fosojuogqs (Bld) [Volume fraction]34.4 %Skohhf55.7-40.4 [facility] HospitalComment on above:Performed By: #### [id number], [id number], 0954011587, 33181697, 6157727743, 4967293 #### [facility] (DEFAULT) [address] [place] [address] 33637Fuphiakohh (Bld) [Mass/Vol]11.3 g/jSDmnprv26.3-15.9 [facility] HospitalComment on above:Performed By: #### [id number], 9751009473, 5401552010, 00125728, 4786077096, 3020224 #### [facility] (DEFAULT) [address] [place], [place] [address]Man Diff?AutoInvalid Interpretation CodeProtestant Deaconess Hospital Comment on above:Performed By: #### [id number], 9644387112, 7920419428, 89576289, 2121081495, 3597263 #### [facility] (DEFAULT) [address] [place] [address] 03539VZH (RBC) [Entitic mass]28 biGrwfyz27-33Fplpqtsf Hospital Comment on above:Performed By: #### [id number], 4897027231, 3899354672, 76790685, 0088984340, 2844488 #### [facility] (DEFAULT) [address] [place] [address] 53244ZDVG (RBC) [Mass/Vol]33 g/xAKmxyva06-01Bmetchfu Hospital Comment on above:Performed By: #### [id number], 2079773982, 1839890950, 77598890, 5631350668, 3124821 #### [facility] (DEFAULT) [address] [place] [address] 00718IUH (RBC) [Entitic vol]84 hHPjxmkv93-321Ylzcmjbr Hospital Comment on above:Performed By: #### [id number], 3607549364, 8940749378, 92466492, 6704236297, 7690095 #### [facility] (DEFAULT) [address] [place] [address] 22324Pijuhsim674 o25Kjiiqn821-616Tpjpqmou HospitalComment on above:Performed By: #### [id number], 5063305498, 6981658013, 56774094, 3273964632, 7041232 #### [facility] (DEFAULT) [address] [place] [address] 94520Cttjtqqv mean volume (Bld) [Entitic vol]8.7 fLNormal 6.3-10.2Magrtrihealth [facility] HospitalComment on above:Performed By: #### [id number], 2189708709, 9945415442, 46466198, 4543065031, 4994080 #### [facility] (DEFAULT) [address] [place] [address] 81375SLE4.10 u12Izrrmq1.70-5.30[facility] HospitalComment on above:Performed By: #### [id number], 3646244610, 8428028425, 97056867, 0423591614, 0197993 #### [facility] (DEFAULT) [address] [place] [address] 90226YFT0.8 v02Jmizzr4.5-10.5[facility] HospitalComment on above: Performed By: #### [id number], 5260241007, 7086281026, 17198450, 4164631663, 4103436 #### [facility] (DEFAULT) [address] [place] [address] 73730MLC Standardon 50-35-6215yKMP Non AA>60Invalid Interpretation CodeOhiohealth Arthur G.[facility]. [facility], [facility], [facility] HospitalComment on above:Performed By: #### [id number], 4265944359, 2595272156, 92963650, 8272548630, 9086376 ####[facility] (DEFAULT)[address] [place] [address] 54787fAUM AA>60Invalid Interpretation CodeOhiohealth Arthur [facility]. [facility], [facility], [facility] HospitalComment on above:Performed By: #### [id number], 8044264316, 8857620028, 72275541, 3820693471, 2009442 ####[facility] (DEFAULT)[address] [place] [address] 65386Bwgdegx [Mass/Vol]4.3 g/dLNormal3.5-5.0[facility] HospitalComment on above:Performed By: #### [id number], 7684448190, 4323319776, 95276807, 1766752596, 7767083 ####[facility] (DEFAULT)[address] [place] [address] 00884Zckklvh/Globulin [Mass ratio]1.2 {ratio}Low1.4-2.6[facility] HospitalComment on above:Performed By: #### [id number], 2383977202, 6587945071, 62993994, 7302631415, 1441799 ####[facility] (DEFAULT)[address] [place] [address] 79467Wmv Phos44 IU/LNormal 32-91[facility] HospitalComment on above:Performed By: #### [id number], 5596812309, 3500125257, 42900443, 0407372483, 9376825 ####[facility] (DEFAULT)[address] [place] [address] 98187ZHC [Catalytic activity/Vol]13.0 U/LLow14.0-54.0[facility] HospitalComment on above:Performed By: #### [id number], 0483046355, 5809842130, 81281269, 3384872772, 7689306 ####[facility] (DEFAULT)[address] [place] [address] 06154Arjbn gap [Moles/Vol]11.1 mmol/L Normal5.0-19.0[facility] HospitalComment on above:Performed By: #### [id number], 6650637146, 1564739042, 06833850, 2163371634, 2494640 ####[facility] (DEFAULT)[address] [place] [address] 93572QKF [Catalytic activity/Vol]17 U/SEwqgwp59-70Jeqyoxwh HospitalComment on above:Performed By: #### [id number], 6663813756, 1465794881, 73608539, 1040428797, 8743793 ####[facility] (DEFAULT)[address] [place] [address] 41033Outs Total0.4 mg/dLNormal0.3-1.2 [facility] HospitalComment on above:Performed By: #### [id number], 6493585662, 4578135199, 18852322, 6695480092, 7850226 ####[facility] (DEFAULT)[address] [place] [address] 73792Rbvwsih [Mass/Vol]8.9 mg/dLNormal8.9-10.3 [facility] HospitalComment on above:Performed By: #### [id number], 3068020955, 0449504209, 70021200, 6438944668, 5867060 ####[facility] (DEFAULT)[address] [place] [address] 00188Mxjwnznx [Moles/Vol]106 mmol/ZYnfbaa426-352 [facility] HospitalComment on above:Performed By: #### 4900592748, 4926598305, 0127194043, 61001293, 3551507455, 1792307 ####[facility] (DEFAULT)[address] [place] [address] 21669RA5 [Moles/Vol]23 mmol/UDcagzn48-10Qmslofal HospitalComment on above:Performed By: #### [id number], 3600493382, 8936973752, 63273979, 4200523587, 5120734 ####[facility] (DEFAULT)[address] [place] [address] 42685Ezmiyqmogd [Mass/Vol]0.67 mg/dLNormal0.60-1.30 [facility] HospitalComment on above:Performed By: #### [id number], 0001863378, 8099459763, 22321212, 2039893747, 0645080 ####[facility] (DEFAULT)[address] [place] [address] 68183Wnwhuwsx (S) [Mass/Vol]3.4 g/dLNormal1.5-4.3 [facility] HospitalComment on above:Performed By: #### [id number], 3042874375, 9491604730, 40122342, 3784608595, 2429654 ####[facility] (DEFAULT)[address] [place] [address] 02772Tmgxxzl [Mass/Vol]93.0 mg/yBYfeazd95.0-118.0 [facility] HospitalComment on above:Performed By: #### [id number], 0871618120, 8608946491, 20319286, 3571026040, 7874019 ####[facility] (DEFAULT)[address] [place] [address] 58663Dutygoawxi043 mOsm/LInvalid Interpretation CodeOhiohealth Arthur [facility]. [facility] HospitalComment on above:Performed By: #### [id number], 3358100876, 0521691822, 00347827, 2749385199, 7281248 ####[facility] (DEFAULT)[address] [place] [address] 72968Pjbrwwgeb [Moles/Vol]3.1 mmol/LLow3.6-5.1 [facility] HospitalComment on above:Performed By: #### [id number], 4754189708, 8406976591, 83339727, 8418603759, 2676479 ####[facility] (DEFAULT)[address] [place] [address] 01061Pqluvhs [Mass/Vol]7.7 g/dLNormal6.5-8.1 [facility] HospitalComment on above:Performed By: #### [id number], 5852111992, 9237500045, 15013979, 9787582210, 7374529 ####[facility] (DEFAULT)[address] [place] [address] 29419Bbfpvm [Moles/Vol]137.0 mmol/LNormal 136.0-144.0[facility] HospitalComment on above:Performed By: #### 5441263713, 6242540341, 9666045062, 78552969, 3096094258, 4006582 ####[facility] (DEFAULT)[address] [place] [address] 57690Niqc nitrogen [Mass/Vol]9 mg/dL Normal8-26[facility] HospitalComment on above:Performed By: #### [id number], 4853280058, 6668904888, 85353553, 4830363836, 6323267 ####[facility] (DEFAULT)[address] [place] [address] 35807Yxqj nitrogen/Creatinine [Mass ratio]13.4 mg/mgNormal4.6-16.2MAvita Health System Galion HospitalComment on above:Performed By: #### [id number], 9447869614, 9679866415, 34704459, 9621388224, 9298313 ####[facility] (DEFAULT)[address] [place] [address] 70203PD Abdomen/Pelvis w/o Contraston 07-18-9022DQ Abdomen/Pelvis w/o Contrast EXAMINATION: CT Abdomen/Pelvis w/o [...] Vi Hancock MD 12/18/23 6:48 pm [facility] Summaryon [id number] [facility] [address] [place] [address] ED Clinical Summary PERSON INFORMATION Name: BARBRA CLAROS Age: 28 Years Sex: FEMALE : 1995 MRN: Acct#: Visit Reason: Pelvic pain; FALL Arrival: 12/18/2023 16:55:10 Discharge: 12/18/2023 19:09:00 LOS: 000 02:14 Check In: 12/18/2023 16:55:10 Checkout:12/18/2023 19:09:00 Address: [address] [place] [address] PCP: Provider, None PROVIDER INFORMATION Provider Role Assigned Unassigned Anjel Yates MD ED Provider 12/18/2023 16:57:27 Viola Esqueda 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 Nurse 12/18/2023 17:05:39 VITALS INFORMATION Vital [...] 1000 mg Oral Allergy Information: Triaminic Allergy; chlorpheniramine/dextromethorphan/PSE PHYSICIAN DOCUMENTATION DISCHARGE INFORMATION: Discharge Disposition: Home Discharge Location: Home PATIENT EDUCATION INFORMATION Instructions: Abdominal Pain, Adult, Tdmi-io-Yygy Follow-Up: With: Address: When: Follow up with primary care provider Within 3 to 5 days DIAGNOSIS: 1:Fall; 2:Pelvic pain in female Patient Understands: Yes - Patient/family/caregiver verbalizes understanding of instructions given Comment:[facility]-Nursingon 89-76-5428WK Note-Nursing Patient arrives by EMS with c/o abdominal pain and dark red/brown scant bleeding. Patient had a partial hysterectomy a month ago and her dog ran into her, causing her to fall. Since fall has had increasing abdominal pain and bleeding. Bleeding is scant and controlled, pain rated 8/10. Patient has not taken any medications, but has prescription for pain from her surgery. A+Ox4, hx of tumor removalfrom tubes and uterus years ago. oMarion HospitalED Patient Summaryon [id number] [facility] SummaryPro[facility] - [facility] [address] [place] [address] PATIENT DISCHARGE INSTRUCTIONS Patient Information Name: BARBRA CLAROS Age: 28 Years Date of : 1995 Reason For Visit: Pelvic pain; FALL Arrival Time: 12/18/2023 16:55:10 Primary Care Physician: Provider, None Attending Physician: Anjel Yates MD Comment: Visit Diagnosis: Diagnoses This Visit Fall (W19.XXXA) Pelvic pain ([id number]) Pelvic pain in female (R10.2) The [facility] at [facility] is open Monday through Monday from 9A to 6P and Monday and Monday from 9A to 5P Prescription Information: If you have been given a prescription for narcotics, seek immediate medical attention if you have any difficulty breathing or any sudden status changes such as confusion andsleepiness. If you or anyone you know is experiencing suicidal thoughts, mental health, alcohol and/or drug addiction problems; contact the Mental Health [facility] Recovery [facility] 09/01 Crisis Hotline -Text 9OBRS pf [phone]. If you received any narcotics, sedation, or [...] treatment you received today in the [facility] Emergency Department were for an urgent problem and are not intended as complete care. It is important for you to follow up with a doctor, nurse practitioner, or physician?s assistant finance director for ongoing care. If your symptoms become worse or you donot improve as expected and you are unable [...] so we can reach you if necessary. [facility] Emergency Department has provided you with a complete list of medications post discharge. Please inform your pediatrician active practice/provider of your visit and for further instruction [...] Information Allergies: Substance Reaction Symptoms Type Comments chlorpheniramine/dextromethorphan/PSE Drug Triaminic Allergy Anaphylactic reaction Drug Vital [...] Education Abdominal Pain, Adult Follow-up with your BOX STRAPPER review this emergency department visit and for [...] these instructions at home: Medicines ? Take ttph-osd-olboyns and prescription medicines only as told by your doctor. ? Do not take medicines that help you poop (laxatives) unless told by your doctor. General i (more content not included)...[facility] HospitalExtra Greenon 48-59-4454Kyki CollectedYesInvalid Interpretation [facility] ToledoComment on above:Performed By: #### [id number], [id number], 9257132440, 01455501, 8158022415, 3457148 #### [facility] (DEFAULT) [address] [place] [address] 59227LD Slqdx5fs 32-14-9462AH BacteriaTraceNoMarion HospitalComment on above:Order Comment: Urinalysis Microscopic order added on by [employer] Expert Rules system.Performed By: #### [id number], [id number] ####[facility] (DEFAULT)[address] [place] [address] 63740RM RBC3-5NoMarion HospitalComment on above:Order Comment: Urinalysis Microscopic order added on by [employer] Expert Rules system.Performed By: #### [id number], [id number] ####[facility] (DEFAULT)[address] [place] [address] 05121JV Squam EpiFewNormal [facility] HospitalComment on above:Order Comment: Urinalysis Microscopic order added on by [employer] Expert Rules system.Performed By: #### [id number], [id number] ####[facility] (DEFAULT)[address] [place] [address] 09369OE WBC0-2 [facility] HospitalComveterans affairs ann [facility] on above:Order Comment: Urinalysis Microscopic order added on by [employer] Expert Rules system.Performed By: #### [id number], [id number] ####[facility] (DEFAULT)[address] [place] [address] 88223MY w Culture if Ind Standardon 82-91-5534Gnqobkturf UANormal [facility] HospitalComment on above:Performed By: #### [id number], [id number] ####[facility] (DEFAULT)[address] [place] [address] 76932Ssdxi (U) YellowNormalMachillicothe va medical center HospitalComment on above:Performed By: #### [id number], [id number] ####[facility] (DEFAULT)[address] [place] [address] 59258Bplmnup?Not IndicatedInvalid Interpretation CodeMagruder HospitalComment on above:Result Comment: Result created by rule GL_MAGR_ADD_UA_CULT Result created by rule GL_MAGR_ADD_UA_CULT Result created by rule GL_MAGR_ADD_UA_CULT1Performed By: #### [id number], [id number] ####[facility] (DEFAULT)[address] [place] [address] 90898Rfvdcgv (U) [Mass/Vol]NegativeNormalMagrtrihealth bethesda [facility]ler hospital HospitalComment on above:Performed By: #### [id number], [id number] ####[facility] (DEFAULT)[address] [place] [address] 69378Pqyxcev Ql (U)Negative NormalAkgrtrihealth bethesda butler hospital HospitalComment on above:Performed By: #### [id number], [id number] ####[facility] (DEFAULT)[address] [place] [address] 69483Tbqwe? IndicatedInvalid Interpretation CodeMagrtrihealth bethesda butler hospital HospitalComment on above:Result Comment: Result created by rule GL_MAGR_ADD_UA_MICROPerformed By: #### [id number], [id number] ####[facility] (DEFAULT)[address] [place] [address] 19235PV BilirubinNegativeNormalMagruder HospitalComment on above:Performed By: #### [id number], [id number] ####[facility] (DEFAULT)[address] [place] [address] 86506PP BloodSMALLAbnormalNEGATIVEMagruder HospitalComment on above: Performed By: #### [id number], [id number] ####[facility] (DEFAULT)[address] [place] [address] 36044SZ ClarityCLEARNormalCLEAROhiohealth Arthur [facility] Hospital Comment on above:Performed By: #### [id number], [id number] ####[facility] (DEFAULT)[address] [place] [address] 26922MV Leuk EstNegativeNormal NEGATIVEOhiohealth Arthur G.H. Bing, Md, Cancer Center HospitalComment on above:Performed By: #### [id number], [id number] ####[facility] (DEFAULT)[address] [place] [address] 68841XC NitriteNegativeNormalNEGATIVEOhiohealth Arthur [facility] HospitalComment on above:Performed By: #### [id number], [id number] ####[facility] (DEFAULT)[address] [place] [address] 36706YZ pH6.2Wobgex8-1Ybxqveay HospitalComment on above: Performed By: #### [id number], [id number] ####[facility] (DEFAULT)[address] [place] [address] 06951BW ProteinNegativeNormalNEGATIVEOhiohealth [facility] HospitalComment on above:Performed By: #### [id number], [id number] ####[facility] (DEFAULT)[address] [place] [address] 68899DW Spec Grav1.010Normal 1.001-1.035[facility] HospitalComment on above:Performed By: #### [id number], [id number] ####[facility] (DEFAULT)[address] [place] [address] 29740KH Urobilinogen0.2 mg/dLNormal0.2-1.0[facility] HospitalComment on above: Performed By: #### [id number], [id number] ####[facility] (DEFAULT)[address] [place] [address] 22754Mihjh SourceClean CatchNormalOhiohealth Arthur [facility] HospitalComment on above:Performed By: #### [id number], [id number] ####[facility] (DEFAULT)[address] [place] [address] 26515RGTtk 11-28-2023 Erythrocyte distribution width (RBC) [Ratio]14.6 %High11.8-14.4[facility] Medical CenterComment on above:Performed By: #### CDP #### [address] [place] [address] Light Cleaner: Lakhwinder Tim MDHematocrit (Bld) [Volume fraction]35.5 %Low 36.3-47.1MSelect [facility] HospitalComment on above:Performed By: #### CDP #### [address] [place] [address] Light Cleaner: Lakhwinder Tim MDHemoglobin (Bld) [Mass/Vol]11.3 g/dLLow11.9-15.1 [facility] CenterComment on above:Performed By: #### CDP #### [address] [place] [address] Light Cleaner: GUERO BenavidesCH (RBC) [Entitic mass]27.3 ufJpgmhb35.2-33.5 [facility] CenterComment on above:Performed By: #### CDP #### [address] [place], [place] 4417483 Light Cleaner: MILDRED BenavidesC (RBC) [Mass/Vol]31.8 g/bHVuuqzb51.4-34.8[facility] Medical CenterComment on above:Performed By: #### CDP #### [address] [place] [address] Light Cleaner: GUERO BenavidesCV (RBC) [Entitic vol]85.7 vRZxuyny21.6-102.9 [facility] CenterComment on above:Performed By: #### CDP #### [address] [place], [place] 8[address]83 Light Cleaner: Lakhwinder Tim MDNRBC Automated0.0 per 100 WBCNormal0.0[facility] Wild[facility] HospitalComment on above:Performed By: #### CDP #### [address] [place] [address] Light Cleaner: Bandar Benavides mean volume (Bld) [Entitic vol]10.2 fL Normal8.1-13.5[facility] Medical CenterComment on above:Performed By: #### CDP #### [address] [place], [facility] Light Cleaner: Dayana Benavidestepooja (Bld) [#/Vol]279 10*3/lBEbhvwf341-488 [facility] CenterComment on above:Performed By: #### CDP #### [address] [place] [address] Light Cleaner: MAU Benavides (Bld) [#/Vol]4.14 10*6/uLNormal3.95-5.11[facility] Medical CenterComment on above:Performed By: #### CDP #### [address] [place] [address] Light Cleaner: JACKIE Benavides (Bld) [#/Vol]6.3 10*3/uLNormal3.5-11.3MSelect Medical Specialty Hospital - Columbus SouthComment on above:Performed By: #### CDP #### [address] [place], [facility] Light Cleaner: Lakhwinder Tim MDVaginitis DNA Probeon 66-41-7452EblbtzeSwdxhvqe NormalNEGAshtabula County Medical CenterComment on above:Result Comment: for Anca sp. Method of testing is a DNA probe intended for detection and identification of Anca species, Gardnerella vaginalis, and Trichomonas vaginalis nucleic acid in vaginal fluid specimens from patients with symptoms of vaginitis/vaginosis. Performed By: #### CP, LIP, CDP #### [address] [place], [place] 359[address]83 Light Cleaner: Jarvis BenavidesdnerellaPositiveAbMarion HospitalComment on above:Result Comment: for Gardnerella vaginalisPerformed By: #### CP, LIP, CDP #### [address] [place], [place] 7284283 Light Cleaner: Lakhwinder Tim MDTrichomonasNegativeMcKitrick Hospital Comment on above:Result Comment: for Trichomonas VaginalisPerformed By: #### CP, LIP, CDP #### [address] [place], [place] 869[address]83 Light Cleaner: Juanis Benavides.VAGINAL SWABSelect Medical [facility] Rehabilitation [facility] Comment on above:Performed By: #### CP, LIP, CDP #### [address] [place], [place] [id number] Light Cleaner: ELENA Benavides ABDOMEN PELVIS W IV CONTRASTon 37-19-3409QM ABDOMEN PELVIS W IV CONTRASTADDENDUM: EXAM NOTE - Needs AddendumDr PelletierCORE: Dorinda [...] abnormality of the pelvis organs or bladder. Peritoneum/Retroperitoneum: Small amount of hemorrhage in the pelvic cul-de-sac estimated at 100 cc. Bones/Soft Tissues: Unremarkable IMPRESSION: Small amount of hemorrhage in the pelvic cul-de-sac estimated at 100 cc. Interpreted by: Betsy Saucedo MD Signed by: Betsy Saucedo MD 11/27/23 Edited Result - FINALNormalAshtabula County Medical CenterBasi Metabolic Profon 84-63-9867Lmgam gap [Moles/Vol]8 mmol/LLow9-17[facility] Medical CenterComment on above:Performed By: #### KALYAN UAX #### [facility] [address] [place] [address] [place] [address] Light Cleaner: Lakhwinder Tim MDBUN/CRE Tjuay10Rchkiy2-74Ccfax [facility] Comment on above:Performed By: #### KALYAN UAX #### [facility] [address] [place] [address] [place] [address] Light Cleaner: JUAREZ Benavidesalcium [Mass/Vol]8.5 mg/dLLow8.6-10.4[facility] Medical CenterComment on above:Performed By: #### KALYAN UAX #### [address] [place] [address] Light Cleaner: JUAREZ Benavideshloride [Moles/Vol]101 mmol/XSwnqgl06-495RonvwAshtabula County Medical CenterComment on above:Performed By: #### KALYAN UAX #### [address] [place] [address] Light Cleaner: Lakhwinder Tim MDCO2 [Moles/Vol]28 mmol/JTzacrs69-17KjwhaAshtabula County Medical CenterComment on above:Performed By: #### KALYAN UAX #### [address] [place] [id number] Light Cleaner: JUAREZ Benavidesreatinine [Mass/Vol]0.6 mg/dLNormal0.5-0.9Ashtabula County Medical CenterComment on above:Performed By: #### KALYAN UAX #### [address] [place] [address] Light Cleaner: Lakhwinder Tim MDGFR/1.73 sq M.predicted among non-blacks MDRD (S/P/Bld) [Vol rate/Area]mL/min/{1.73_m2}Normal>60As[facility]ula County Medical CenterComment on above:Result Comment: These results are not intended for [...] or following therapy that affects renal tubular secretion.Performed By: ###Fer BIGGS UAX #### [address] [place] [address] Light Cleaner: Lakhwinder Tim MDGlucose [Mass/Vol]88 mg/cGLweyaw48-00Stfek [facility]S Medical CenterComment on above:Performed By: #### KALYAN UAX #### [address] [place] [address] Light Cleaner: PARUL Benavidesotassium [Moles/Vol]3.7 mmol/LNormal3.7-5.3[facility] Wildorado HospitalComment on above:Performed By: #### KALYAN, UAX #### [address] [place] [address] Light Cleaner: ADDISON Benavidesodium [Moles/Vol]137 mmol/HLwxuli414-241Xacfs [facility] HospitalComment on above:Performed By: #### KALYAN, UAX #### [address] [place], [facility] Light Cleaner: Zaynab Benavides nitrogen [Mass/Vol]11 mg/dLNormal6-20Mer[facility] HospitalComment on above:Performed By: #### KALYAN UAX #### [address] [place], [facility] Light Cleaner: MARK Benavides with Diffon 21-67-8484Ygp. Basophil<0.03Normal 0.00-0.20MerMem[facility] HospitalComment on above:Performed By: #### KALYAN, UAX #### [address] [place] [facility] Light Cleaner: Ben Benavides.Imm.Granulocyte<0.49Vxqfff6.00-0.30MerMem[facility] HospitalComment on above:Performed By: #### KALYAN UAX #### [address] [place], [place] [id number] Light Cleaner: Ben Benavides.Neutrophil (Seg)4.02 k/uLNormal1.50-8.10Mer[facility] HospitalComment on above:Performed By: #### KALYAN, UAX #### [address] [place] [id number] Light Cleaner: Lakhwinder Tim MDBasophils/100 WBC (Bld)0 %Normal0-2[facility] HospitalComment on above:Performed By: #### KALYAN UAX #### [address] [place] [id number] Light Cleaner: Lakhwinder Tim MDEosinophils (Bld) [#/Vol]0.20 10*3/uLNormal 0.00-0.44[facility] HospitalComment on above:Performed By: #### KALYAN UAX #### [address] [place] [address] Light Cleaner: Lakhwinder Tim MDEosinophils/100 WBC (Bld)3 %Normal1-4[facility] HospitalComment on above:Performed By: #### KALYAN UAX #### [address] [place], [facility] Light Cleaner: Lakhwinder Tim MDErythrocyte distribution width (RBC) [Ratio]14.6 % High11.8-14.4[facility] HospitalComment on above:Performed By: #### KALYAN UAX #### [address] [place] [address] Light Cleaner: Lakhwinder Tim MDHematocrit (Bld) [Volume fraction]33.2 %Low 36.3-47.1MSelect [facility] HospitalComment on above:Performed By: #### KALYAN UAX #### [address] [place] [address] Light Cleaner: Lakhwinder Tim MDHemoglobin (Bld) [Mass/Vol]10.8 g/dLLow11.9-15.1 [facility] HospitalComment on above:Performed By: #### KALYAN UAX #### [address] [place], [place] [address] Light Cleaner: Lakhwinder Tim MDImmature granulocytes/100 WBC (Bld)0 %Lsmaqt4Zlsfz [facility] HospitalComment on above:Performed By: #### KALYAN, UAX #### [address] [place], [place] [address]83 Light Cleaner: Lakhwinder Tim MDLymphocytes (Bld) [#/Vol]2.70 10*3/uLNormal 1.10-3.70[facility] HospitalComment on above:Performed By: #### KALYAN UAX #### [address] [place], [place] 423[address]83 Light Cleaner: Oniel Benavidesmphocytes/100 WBC (Bld)36 %Pqelfk62-34Dhqrm [facility] HospitalComment on above:Performed By: #### KALYAN UAX #### [address] [place], [place] 14[address]83 Light Cleaner: MILDRED Benavides (RBC) [Entitic mass]27.3 xaQnvdxw50.2-33.5 [facility] HospitalComment on above:Performed By: #### KALYAN UAX #### [address] [place] [address] Light Cleaner: MILDRED BenavidesC (RBC) [Mass/Vol]32.5 g/eWYczfrk07.4-34.8[facility] HospitalComment on above:Performed By: #### KALYAN UAX #### [address] [place] [address] Light Cleaner: GUERO BenavidesCV (RBC) [Entitic vol]84.1 tEVkhkfj16.6-102.9 [facility] HospitalComment on above:Performed By: #### KALYAN UAX #### [address] [place] [address] Light Cleaner: GUERO Benavidesonocytes (Bld) [#/Vol]0.64 10*3/uLNormal0.10-1.20 [facility] HospitalComment on above:Performed By: #### KALYAN, UAX #### [address] [place] [address] Light Cleaner: GUERO Benavidesonocytes/100 WBC (Bld)8 %Normal3-12[facility] HospitalComment on above:Performed By: #### KALYAN UAX #### [address] [place], [place] [address]83 Light Cleaner: Lakhwinder Tim MDNeutrophil (Seg)53 %Wggvde60-98Rhyax [facility] HospitalComment on above:Performed By: #### KALYAN UAX #### [address] [place], [place] 457[address]83 Light Cleaner: Lakhwinder Tim MDNRBC Automated0.0 per 100 WBCNormal0.0[facility] HospitalComment on above:Performed By: #### KALYAN UAX #### [address] [place] [address] Light Cleaner: Bandar Benavides mean volume (Bld) [Entitic vol]10.2 fL Normal8.1-13.5Asht[facility] County Medical CenterComment on above:Performed By: #### KALYAN UAX #### [address] [place], [place] [address] ([address] Light Cleaner: PARUL Benavideslatelets (Bld) [#/Vol]253 10*3/pGQnjfqz238-104 [facility] HospitalComment on above:Performed By: #### KALYAN UAX #### [address] [place], [place] [address]283 Light Cleaner: MAU Benavides (Bld) [#/Vol]3.95 10*6/uLNormal3.95-5.11[facility]'S Medical CenterComment on above:Performed By: #### KALLIE BIGGSX #### [address] [place], [place] 0360[address]83 Light Cleaner: JACKIE Benavides (Bld) [#/Vol]7.6 10*3/uLNormal3.5-11.3[facility]S Medical CenterComment on above:Performed By: #### JERALD BIGGS #### [address] [place], [facility]83 Light Cleaner: Lakhwinder Tim MDMagnesiumon 71-69-1141Tvzxuxfqf [Mass/Vol]2.0 mg/dLNormal1.6-2.6[facility]S Medical CenterComment on above:Performed By: #### JERALD BIGGS #### [address] [place], [facility] Light Cleaner: Lakhwinder Tim MDUrinalysis w/ Microon 88-72-7941Aqirjtkyhd cells LM Ql (Urine sed)0 TO 5Zglyie0-48StrhwAshtabula County Medical CenterComment on above:Performed By: #### TOM WHITEHEAD, CDP #### [address] [place], [facility] Light Cleaner: GUERO Benavidesucus Strands1+AbnormalNONEMeYale New Haven Children's Hospital Comment on above:Performed By: #### TOM WHITEHEAD, CDP #### [address] [place], [facility] Light Cleaner: Lakhwinder Tim MDUrine RBC's0 TO 9Jyqkgq9-2GuqoxSelect Medical Specialty [facility] Comment on above:Performed By: #### TOM WHITEHEAD, CDP #### [facility] [address] [place] [address] [place] [address] Light Cleaner: Zulay Benavides WBC's0 TO 5Czbhso2-0VehtwAshtabula County Medical Center Comment on above:Performed By: #### CP, LIP, CDP #### [facility] [address] [place] [address] Light Cleaner: Lakhwinder Tim MDBilirubin, SemiQt,UrNegativeNoDayton Osteopathic HospitalComment on above:Performed By: #### CP, LIP, CDP #### [facility] [address] [place] [address] Light Cleaner: Kenn Benavides, UrineNegativeMcKitrick Hospital Comment on above:Performed By: #### CP, LIP, CDP #### [facility] [address] [place] [address] [place] [address] Light Cleaner: JUAREZ Benavideslarity ()ClearNormalCLEARAshtabula County Medical Center Comment on above:Performed By: #### CP, LIP, CDP #### [facility] [address] [place] [address] [place] [address] Light Cleaner: JUAREZ Benavidesolor ()YellowNoalYUniversity Hospitals Parma Medical Center Comment on above:Performed By: #### CP, LIP, CDP #### [facility] [address] [place] [address] [place] [address] Light Cleaner: Lakhwinder Tim MDGlucose Ql (U)NegativeNormalMercy Health St. Vincent Medical CenterComment on above:Performed By: #### CP, LIP, CDP #### [facility] [address] [place] [address] Light Cleaner: Lakhwinder Tim MDKetones Ql (U)NegativeNormalNEGAshtabula County Medical CenterComment on above:Performed By: #### CP, LIP, CDP #### [facility] [address] [place] [address] [place] [address] Light Cleaner: Lakhwinder Tim MDLeukocyte esterase Test strip Ql (U)NegativeNormal NEGAshtabula County Medical CenterComment on above:Performed By: #### CP, LIP, CDP #### [address] [place] [address] Light Cleaner: Lakhwinder Tim MDNitrite,UrNegativeNormalNEGAshtabula County Medical Center Comment on above:Performed By: #### CP, LIP, CDP #### [address] [place] [address] Light Cleaner: PARUL Benavides,Ur6.6Udzcqt1.0-9.0[facility]'S Medical CenterComment on above:Performed By: #### VENTURA, LIP, CDP #### [address] [place], [place] [address] Light Cleaner: PARUL Benavidesrotein Ql (U)NegativeNormalNEGProvidence Hospital HospitalComment on above:Performed By: #### VENTURA, LIP, CDP #### [address] [place] [address] Light Cleaner: ADDISON Benavidespec. [place],Ur>1.429Gfnp2.010-1.020MerMem[facility] HospitalComment on above:Performed By: #### VENTURA, LIP, CDP #### [address] [place] [address] Light Cleaner: Lakhwinder Tim MDUrobilinogen,UrNormalNormal0.0-1.0[facility] Medical CenterComment on above:Performed By: #### VENTURA, LIP, CDP #### [address] [place], [place] 5824083 Light Cleaner: ADDISON Benavidesurgical Pathology Reporton [id number] Pathology Report(NOTE) Path Number: [id number] -- Diagnosis -- UTERUS AND CERVIX, HYSTERECTOMY: - SECRETORY PHASE ENDOMETRIUM. - BENIGN CERVIX WITH NO SIGNIFICANT PATHOLOGIC ABNORMALITY. Sayra Marshall Electronically Signed Out ag/11/22/2023 Clinical Information Pre-Op [...] No further masses or lesions are identified. Technology Recruiter sections are submitted in 4c as follows: 1 anterior cervix 2 posterior cervix 3 anterior endomyometrium 4 posterior endomyometrium. silvano Saucedo/sandra2:11/21/2023 Microscopic Description Microscopic examination performed. Processing Lab: [address] [address] Interpretation Performed at [address] [address] SURGICAL PATHOLOGY CONSULTATION Patient Name: BARBRA CLAROS [facility] Rec: [id number] [employer] [facility] ANATOMIC PATHOLOGY [address] [facility]. [place], [place] [address] [facility] Summaryon 29-67-2506Kiofqn SummaryHTMLBase 64 EroiqcajKMo3rEg+PGhlYWQ+GM1AXHXrN50pbUNnmH8iH1LBZCnSLcbiZQQNTCaOWwWwkqWtBC5svSJx ZXJu [file] YXB (more content not included)...[facility] HospitalED Clinical Summaryon [id number] [facility] [address] [place] [address] Clinical Summary PERSON INFORMATION Name: BARBRA CLAROS Age: 28 Years Sex: FEMALE : 1995 MRN: Acct#: Visit Reason: UC - Wrist Injury; RIGHT HAND, WRIST PAIN Arrival: 10/18/2023 09:49:58 Discharge: 10/18/2023 11:14:00 LOS: 000 01:25 Check In: 10/18/2023 09:49:58 Checkout: 10/18/2023 11:14:00 Address: [address] [place] [address] PCP: Provider, None PROVIDER INFORMATION Provider Role Assigned Unassigned Dalila Cotter ED Nurse 10/18/2023 09:52:49 10/18/2023 10:38:20 Juan Santillan PA-C ED PA 10/18/2023 09:53:30 Tova Parsons TEMPERING OVEN OPERATOR Nurse 10/18/2023 10:44:12 VITALS INFORMATION Vital Sign Triage Latest Temperature Tympanic Temperature Temporal Artery Pulse Rate O2 Sat Respiratory Rate Blood Pressure /60 mmHg /60 mmHg MEDICAL INFORMATION Medications Given: Allergy Information: Triaminic Allergy; chlorpheniramine/dextromethorphan/PSE PHYSICIAN DOCUMENTATION DISCHARGE INFORMATION: Discharge Disposition: Home Discharge Location: Home PATIENT EDUCATION INFORMATION Instructions: Wrist Sprain, Adult Follow-Up: With: Address: When: Follow up with Orthopedic With: Address: When: Provider, None [address] [place] [address] DIAGNOSIS: 1:Right wrist sprain Patient Understands: Yes - Patient/family/caregiver verbalizes understanding of instructions given Comment:[facility] HospitalED Patient Summaryon [id number] Patient Summary [facility] Ur[facility] Care [address] [place] [address] PATIENT DISCHARGE INSTRUCTIONS Patient Information Name: BARBRA CLAROS Age: 28 Years Date of : 1995 MRN: [id number] Reason For Visit: UC - Wrist Injury; RIGHT HAND, WRIST PAIN Arrival Time: 10/18/2023 09:49:58 Primary Care Physician: Provider, None Attending Physician: Juan Santillan PA-C Comment: Patient Education With: Address: When: Follow up with Orthopedic With: Address: When: Provider, None [address] [place] [address] Wrist Sprain, Adult A wrist sprain is [...] your health care prov (more content not included)...[facility] HospitalXR Wrist Complete Righton [id number] Wrist Complete RightEXAM: XR Wrist Complete Right HISTORY: Fall/right wrist sprain COMPARISON: None. TECHNIQUE: 3 views of the right wrist. FINDINGS: No acute fracture or dislocation. Soft tissues are grossly unremarkable. IMPRESSION: No acute osseous abnormality. Final Dictated by: Joel Mackenzie MD Dictated DT/TM: 10/18/23 10:51 Signed (Electronic Signature): Joel Mackenzie MD 10/18/23 10:52 a Technologist: [facility]IFUC Medical CenterCOVID-19, Rapidon 60-39-7270WRPS-CoV-2 (COVID-19) RdRp gene MARICEL+probe Ql (Resp)Not detectedNot DetectedBON [facility] on above: Rapid NAAT: The specimen is [...] management decisions. Fact sheet for Healthcare Providers: https://www.fda.gov/media/207328/download Fact sheet for Patients: https://www.fda.gov/media/737536/download Methodology: Isothermal Nucleic Acid Amplification Specimen Description.NASOPHARYNGEAL SWABBON FALL RIVER HOSPITALFlu A/B Ag Detectionon 02-59-5121Jjs A Ag DetectionNegativeNormalNEG [facility]ula County Medical CenterComment on above:Result Comment: for Influenza A Antigen Performed By: #### KALYAN, UAX #### [facility] [address] [place], [place] [address] Light Cleaner: Lakhwinder Tim MDFlu B Ag DetectionNegativeNormalNEGAshtabula County Medical CenterComment on above:Result Comment: for Influenza B Antigen.Performed By: #### UMMINOO, UAX #### [facility] [address] [place] [address] Light Cleaner: Lamberto Benavides XR Chest AP single viewon 06-74-0387Qf acute process. [facility] CONSOLIDATEDEXAMINATION: ONE XRAY VIEW OF THE CHEST 08/15/2023 4:54 pm COMPARISON: None. HISTORY: ORDERING SYSTEM PROVIDED HISTORY: chest pain TECHNOLOGIST PROVIDED HISTORY: chest pain FINDINGS: The lungs are without acute focal process. There is no effusion or pneumothorax. The cardiomediastinal silhouette is without acute process. The osseous structures are without acute process. [facility] Yair Webb MD - 08/15/2023 EXAMINATION: ONE XRAY VIEW OF THE CHEST 08/15/2023 4:54 pm COMPARISON: None. HISTORY: ORDERING SYSTEM PROVIDED HISTORY: chest pain TECHNOLOGIST PROVIDED HISTORY: chest pain FINDINGS: The lungs are without acute focal process. There is no effusion or pneumothorax. The cardiomediastinal silhouette is without acute process. The osseous structures are without acute process. IMPRESSION: No acute process. [facility] Centeriology Study observation (narrative)[facility] XR Chest AP single viewOrdered By: Yair Clinton on [id number] [facility] Work Phone: Rapid influenza A/B antigenson 28-75-0173VPLIW Ag Ql (Unsp spec)NegativeNEGATIVEBON [facility] on above:for Influenza A AntigenFLUBV Ag Ql (Unsp spec)NegativeNEGATIVEBON [facility] on above:for Influenza B Antigen.BON [facility] KCPQ-XdR-3ga 87-39-3551TNFF-CoV-2 (COVID-19) RNA MARICEL+probe Ql (Unsp spec)Not detectedNormalNOTDEPremier Health Atrium Medical Center on above:Result Comment: Rapid NAAT: The specimen is NEGATIVE [...] management decisions. Fact sheet for Healthcare Providers: https://www.fda.gov/media/148319/download Fact sheet for Patients: https://www.fda.gov/media/712208/download Methodology: Isothermal Nucleic Acid AmplificationPerformed By: #### JERALD BIGGS #### [address] [place] [address] Light Cleaner: REBA Benavides CHEST PORTABLEon 48-72-6422WJ CHEST PORTABLE EXAMINATION: ONE XRAY VIEW OF [...] Signed by: Yair Clinton MD 08/15/23 Final resultNormalMercy Connecticut Children'S Medical CenterHCG, ,Urineon 65-38-1215Jtey HCG ( test) Ql (U)NegativeNormalNEGUniversity Hospitals Elyria Medical CenterComment on above: Performed By: #### UHCG #### [facility] [address] [place] [address] Light Cleaner: Lakhwinder Tim, MDPregnancy, Urineon 56-09-4441MAS ( test) Ql (U)NegativeNEGATIVEBON FALL RIVER HOSPITALSurgical Pathology Reporton [id number] Pathology Report(NOTE) Path Number: [id number] -- Diagnosis -- A. GASTRIC ANTRUM, BIOPSY: [...] A, B. Microscopic examination performed. Processing Lab: [address] [address] Interpretation Performed at [address] [address] SURGICAL PATHOLOGY CONSULTATION Patient Name: BARBRA CLAROSJudd [facility] Rec: [id number] [facility] [employer] [facility] ANATOMIC PATHOLOGY [address] [place], [place] [address] [id number] [facility] HospitalCoding Summaryon 80-73-0319Suattn SummaryHTMLBase 64 VwbukkybPIj2uJz+PGhlYWQ+EP4XJGLiV67bpSHfzY7zY4CXFVvQQcqnAZFJCDwFPrXsgoSjOU9fwNXe ZXJu [file] ZXI (more content not included)...NormalUc West [facility] Hospitaluder HospitalCoding SummaryHTMLBase 64 AblwgenaHPe3fPy+PGhlYWQ+CD1AXOZjH80yaZHgcV4cZ6VWFZeKLopmMDDUJVhRQuIqkdNfDQ7psJDg ZXJu [file] ZXI (more content not included)...[facility] HospitalCoding Summaryon 83-00-0184Qiziuw SummaryHTMLBase 64 ZbncnlcdVTg2qPq+PGhlYWQ+YV9DQPUlL96ecALmmC4bN6HVXTpJUkapQSHCLUtOOeXtskHiMQ0bbBEh ZXJu [file] YXB (more content not included)...[facility].Auto Diff 111-02-0336Txnf [place] %8 %[place]1-12[facility] HospitalComment on above:Performed By: #### [id number], [id number], [id number], 7020585, 5399805640, 1177591154, 1351894031 ####[facility] ([facility])[address] [place] [address]Qgrk Abs#0.0 w84Htlyuy7.0-0.2MAvita Health System Galion HospitalComment on above:Performed By: #### [id number], 02538224, 2954432685, 3477139, 7346491786, 1396829931, 9366669692 ####[facility] (DEFAULT)[address] [place] [address]Mvmrpiavn/100 WBC (Bld)0.4 %Normal0.2-2.0[facility]acon[facility] HospitalComment on above: Performed By: #### [id number], 17158229, 9435511054, 8149273, 0813854234, 4092888367, [id number] ####[facility] (DEFAULT)[address] [place] [address]Agy Abs#0.2 s53Bmmrvs0.0-0.4[facility] HospitalComment on above: Performed By: #### [id number], 92951810, 7842552791, 4700389, 2321173786, 2708912757, 0303696429 ####[facility] (DEFAULT)[address] [place] [address]Fuybopljpcw/100 WBC (Bld)2.4 %Normal0.9-4.0[facility] Comment on above:Performed By: #### [id number], 10919654, 7068349187, 1174995, 7333528573, 4547167649, 9298477290 ####[facility] (DEFAULT)[address] [place] [address]Xbwsm Abs#2.3 h82Ujxjga1.3-2.9[facility] Comment on above:Performed By: #### [id number], 97877752, 2439617849, 8007741, 5632682294, 2865631124, 7299305295 ####[facility] (DEFAULT)[address] [place] [address]Cogyddwtmji/100 WBC (Bld)35 %Jpttbx62-47Iwkcoldc HospitalComment on above:Performed By: #### [id number], 07721681, 5563822022, 4906740, 1685341066, 0596940433, 2563724115 ####[facility] (DEFAULT)[address] [place] [address]Jqsa Abs#0.5 a81Drpoym2.0-0.8[facility] HospitalComment on above:Performed By: #### [id number], 26954312, 9297038044, 7013943, 0349744571, 3481478220, 0114966476 ####[facility] (DEFAULT)[address] [place] [address]99[address]Ppow Abs#3.5 d20Jsqewk4.5-9.2Magrtrihealth bethesda butler hospital HospitalComment on above:Performed By: #### [id number], 31361173, 1659856141, 4919756, 2762177585, 4867412144, 5425557938 ####[facility] (DEFAULT)[address] [place] [address]35[address]Tivcjgvdkgp/100 WBC (Bld)54 %Abyjte45-30 [facility] HospitalComment on above:Performed By: #### [id number], 03733181, 2322413924, 2834114, 5417718703, 4498160229, 8379193728 ####[facility] (DEFAULT)[address] [place] [address]ADT w/ Auto Diffon 06-09-2023 Erythrocyte distribution width (RBC) [Ratio]14.9 %Mvxazz65.5-15.0[facility] HospitalComment on above:Performed By: #### [id number], 45713007, 3042019694, 8804974, 1630093615, 6000475703, 6779963431 ####[facility] (DEFAULT)[address] [place] [address] 89[address]Frydaepxkh (Bld) [Volume fraction]34.8 % Dmksms40.7-40.4[facility] HospitalComment on above:Performed By: #### [id number], 32480947, 4896403896, 1744180, 3776084223, 1919802621, 3420992752 ####[facility] (DEFAULT)[address] [place] [address]Xoncsalwuk (Bld) [Mass/Vol]11.6 g/xSNjmwnk28.3-15.9Mag[facility]uder HospitalComment on above:Performed By: #### [id number], 39884538, 5053683351, 6091933, 2559143793, 9127338949, 4605093207 ####[facility] (DEFAULT)[address] [place], [place] [address]Man Diff?AutoInvalid Interpretation CodeProtestant Deaconess HospitalComment on above: Performed By: #### [id number], 31173131, 1605164298, 3297172, 0220192309, 0067624447, 0487028963 ####[facility] (DEFAULT)[address] [place] [address] (RBC) [Entitic mass]28 nxCoomdf29-18Mfzvzxof Hospital Comment on above:Performed By: #### [id number], 78238199, 6713937574, 3129606, 9212497183, 0974909327, 2108548083 ####[facility] (DEFAULT)[address] [place], [place] [address]HC (RBC) [Mass/Vol]33 g/wZOizhgc43-94Wmewxmwk HospitalComment on above:Performed By: #### [id number], 91704821, 9075305082, 0519213, 0546929280, 5079129626, 5459667094 ####[facility] (DEFAULT)[address] [place] [address]JVK (RBC) [Entitic vol]82 kSGfdbyg39-615 [facility] HospitalComment on above:Performed By: #### [id number], 20321830, 7484956192, 1034603, 7416990658, 6533260210, 5733815868 ####[facility] (DEFAULT)[address] [place], [place] [address]Platelet227 j07Jypozh202-059 [facility] HospitalComment on above:Performed By: #### [id number], 45328990, 3711812059, 2160059, 1257083012, 4334970895, 9697519450 ####[facility] (DEFAULT)[address] [place] [address]Aeqkvbit mean volume (Bld) [Entitic vol]7.8 fLNormal6.3-10.2Magrtrihealth bet[facility]da [facility] hospital HospitalComment on above:Performed By: #### [id number], 90955090, 4754557930, 9061965, 4323006271, 5013494165, 6139809136 ####[facility] (DEFAULT)[address] [place], [place] [address] 72202IOI6.22 l31Wpypir1.70-5.30[facility] HospitalComment on above:Performed By: #### [id number], [id number], 2510602718, 4309069, 8143377815, 7041216494, [id number] ####[facility] (DEFAULT)[address] [place] [address] 81405CJJ3.5 u48Slxjai7.5-10.5[facility] HospitalComment on above:Performed By: #### [id number], 36407475, 6587570036, 5317950, 7943905682, 7291620670, [id number] ####[facility] (DEFAULT)[address] [place] [address] 21435LCC Standardon 50-81-2148nRIO Non AA>60Invalid Interpretation CodeOhiohealth [facility]. [facility], [facility], [facility] HospitalComment on above:Performed By: #### [id number], 05155064, 4315137371, 6230292, 4950081128, 6451496889, 1485008970 ####[facility] (DEFAULT)[address] [place] [address] 99131oUSO AA>60Invalid Interpretation CodeOhiohealth [facility], [facility], [facility] HospitalComment on above:Performed By: #### [id number], 68582307, 4200259767, 6716477, 7454886819, 3636521132, [id number] ####[facility] (DEFAULT)[address] [place] [address] 68381Drccyao [Mass/Vol]4.0 g/dLNormal3.5-5.0 [facility] HospitalComment on above:Performed By: #### [id number], 59681448, 4516000047, 2678647, 6069143467, 2614341382, 5526373248 ####[facility] (DEFAULT)[address] [place] [address] 09776Qojprwz/Globulin [Mass ratio]1.0 {ratio}Low1.4-2.6[facility] HospitalComment on above:Performed By: #### [id number], 44490479, 2061743466, 3066071, 5885133726, 8457931527, 3778346928 ####[facility] (DEFAULT)[address] [place] [address] 09030Ezv Phos60 IU/KIuqxzu70-87Dxjkunaf HospitalComment on above:Performed By: #### [id number], 63794831, 1825160000, 8264156, 8439762390, 0997383786, 7412471440 ####[facility] (DEFAULT)[address] [place] [address] 77730DXK [Catalytic activity/Vol]25.0 U/BOcfnyo60.0-54.0[facility] HospitalComment on above:Performed By: #### [id number], 63204973, 4774001088, 6118384, 1632040174, [id number], [id number] ####[facility] (DEFAULT)[address] [place] [address] 26417Hnicg gap [Moles/Vol]10.8 mmol/LNormal5.0-19.0[facility] HospitalComment on above:Performed By: #### [id number], 86564573, 9168850115, 6226781, 8081176512, 5407333819, [id number] ####[facility] (DEFAULT)[address] [place] [address] 77014DNC [Catalytic activity/Vol]22 U/IHgcmeo99-24Fplyxtcw Hospital Comment on above:Performed By: #### [id number], 14211322, 3732737756, 4647188, 6189743609, 1524494674, 5787326131 ####[facility] (DEFAULT)[address] [place] [address] 84285Kkpr Total0.4 mg/dLNormal0.3-1.2[facility] Hospital Comment on above:Performed By: #### 0526760467, 24744034, 8299950068, 9932801, 0219359535, 3517666070, 1719876377 ####[facility] (DEFAULT)[address] [place] [address] 87821Zbxqwjo [Mass/Vol]8.7 mg/dLLow8.9-10.3[facility] HospitalComment on above:Performed By: #### [id number], 92037865, 4292208147, 1589121, 1411527135, 1996633313, 4480488436 ####[facility] (DEFAULT)[address] [place] [address] 65340Ptdpnamj [Moles/Vol]107 mmol/XAvwyus203-773 [facility] HospitalComment on above:Performed By: #### [id number], 73677445, 2589415782, 8316790, 1453742742, 5175389464, 9512988211 ####[facility] (DEFAULT)[address] [place] [address] 55231YY8 [Moles/Vol]23 mmol/LNormal 21-32[facility] HospitalComment on above:Performed By: #### [id number], 60274384, 2345988248, 8545505, 6381816226, 1222327176, 0988614653 ####[facility] (DEFAULT)[address] [place] [address] 34377Piwsefchje [Mass/Vol]0.53 mg/dL Low0.60-1.30[facility] HospitalComment on above:Performed By: #### [id number], 75149363, 8734175258, 0254023, 3967001262, 0035708396, 5078162417 ####[facility] (DEFAULT)[address] [place] [address] 38568Querjbev (S) [Mass/Vol] 3.8 g/dLNormal1.5-4.3[facility] HospitalComment on above:Performed By: #### 0759368354, 41765497, 9177431100, 4303479, 4638259707, 2744481279, 1217002917 ####[facility] (DEFAULT)[address] [place] [address] 04784Qkktjmo [Mass/Vol]92.0 mg/sDJhplzg41.0-118.0[facility] HospitalComment on above:Performed By: #### [id number], 67744712, 1690502332, 6195255, 2527982585, 1018553805, 4134748295 ####[facility] (DEFAULT)[address] [place] [address] 42488Djssttrmhd937 mOsm/LInvalid Interpretation CodeMachillicothe va medical center HospitalComment on above:Performed By: #### [id number], 44516790, 8127586099, 5694825, 2995211833, 2098544846, 8340002264 ####[facility] (DEFAULT)[address] [place] [address] 27850Aetmjziay [Moles/Vol]3.8 mmol/LNormal3.6-5.1[facility] Hospital Comment on above:Performed By: #### [id number], 81743083, 1743799512, 1443607, 2186112815, 4411061712, 6403521168 ####[facility] (DEFAULT)[address] [place] [address] 81967Fattlcw [Mass/Vol]7.8 g/dLNormal6.5-8.1[facility] HospitalComment on above:Performed By: #### [id number], 96481197, 6846615694, 4247551, 9135644359, 9190785092, 5828766604 ####[facility] (DEFAULT)[address] [place] [address] 80925Yjkdfz [Moles/Vol]137.0 mmol/LNormal 136.0-144.0[facility] HospitalComment on above:Performed By: #### 5777754464, 15563575, 0498528487, 5143219, 8664161857, 1118152603, 0835515028 ####[facility] (DEFAULT)[address] [place] [address] 38930Tqeg nitrogen [Mass/Vol]9 mg/dLNormal8-26[facility] HospitalComment on above:Performed By: #### [id number], 12098313, 7666267247, 4317448, 3778922589, 3002675653, 7129747224 ####[facility] (DEFAULT)[address] [place] [address] 59514Kyed nitrogen/Creatinine [Mass ratio]16.9 mg/mgHigh4.6-16.2MAvita Health System Galion HospitalComment on above:Performed By: #### [id number], 03488301, 9081053966, 7929442, 8969272107, 5787616977, 4242649885 ####[facility] (DEFAULT)[address] [place] [address] 49072RV Clinical Summary 21-15-5001EH Clinical Summary [facility] Emergency Department [address] [place] [address] ED Clinical Summary PERSON INFORMATION Name: BARBRA CLAROS Age: 27 Years Sex: FEMALE : 1995 MRN: Acct#: Visit Reason: Dizziness; Headache; MIGRAINE, DIZZINESS Arrival: 06/09/2023 11:32:00 Discharge: 06/09/2023 13:05:00 LOS: 000 01:33 Check In: 06/09/2023 11:32:00 Checkout:06/09/2023 13:05:00 Address: [address] [place] [address] PCP: Provider, None PROVIDER INFORMATION Provider Role [...] mg IV Piggyback Allergy Information: Triaminic Allergy; chlorpheniramine/dextromethorphan/PSE PHYSICIAN DOCUMENTATION DISCHARGE INFORMATION: Discharge Disposition: Home Discharge Location: Home PATIENT EDUCATION INFORMATION Instructions: Migraine Headache, Bxuv-rm-Vetf Follow-Up: With: Address: When: Follow up with primary care provider Within 3 to 5 days DIAGNOSIS: 1:Migraine headache Patient Understands: Yes - Patient/family/caregiver verbalizes understanding of instructions given Comment:[facility] Patient Summaryon 58-58-4904DK Patient Summary [facility] - Emergency Department [address] [place] [address] PATIENT DISCHARGE INSTRUCTIONS Patient Information Name: BARBRA CLAROS Age: 27 Years Date of : 1995 Reason For Visit: Dizziness; Headache; MIGRAINE, DIZZINESS Arrival Time: 06/09/2023 11:32:00 Primary Care Physician: Provider, None Attending Physician: Anjel Yates MD Comment: Visit Diagnosis: Diagnoses This Visit Dizziness ([id number]) Headache ([id number]) Migraine headache (G43.909) The [facility] at [facility] is open Monday through Monday from 9A to 6P and Monday and Monday from 9A to 5P Prescription Information: If you have been given a prescription for narcotics, seek immediate medical attention if you have any difficulty breathing or any sudden status changes such as confusion andsleepiness. If you or anyone you know is experiencing suicidal thoughts, mental health, alcohol and/or drug addiction problems; contact the [facility] 09/01 Crisis Hotline -Text 5ZRHM by [id number]. If you received any narcotics, sedation, or [...] treatment you received today in the [facility] Emergency Department were for an urgent problem and are not intended as complete care. It is important for you to follow up with a doctor, nurse practitioner, or physician?s assistant finance director for ongoing care. If your symptoms become worse or you donot improve as expected and you are unable [...] so we can reach you if necessary. [facility] Emergency Department has provided you with a complete list of medications post discharge. Please inform your pediatrician active practice/provider of your visit and for further instruction on these medications. Any specific questions regarding your chronic medications and dosages should be discussed with your primary care physician(s) and/or pharmacist. New Medications [facility] [id number] [place], [place] [id number], [phone] rizatriptan (Maxalt 10 mg oral tablet) 1 [...] oral tablet) 1 tab(s) Oral (given by mouth)every day. ferrous sulfate (FeroSul 325 mg (65 mg elemental iron) oral tablet) 1 tab(s) Oral (given by mouth) 3 times a day (scheduled). medroxyPROGESTERone (medroxyPROGESTERone 2.5 mg oral tablet) 1 tab(s) Oral (given by mouth) every day. multivitamin, ( 19 ([employer]) oral tablet) 1 tab(s) Oral (given by mouth) every day. Refills: 0. Visit Information Allergies: Substance Reaction Symptoms Type Comments chlorpheniramine/dextromethorphan/PSE Drug Triaminic Allergy Anaphylactic reaction Drug Vital Signs: Vitals and Measurements this Visit (last charted value for your 06/09/2023 visit) Vital Signs This Visit Temperature Temporal Artery: 36.7 DegC Peripheral Pulse Rate: 45 bpm Respiratory Rate: 18 br/min Systolic Blood Pressure: 106 mmHg Diastolic Blood Pressure: 68 mmHg SpO2: 99 % Oxygen Therapy: Room air Measurements This Visit (more content not included)...[facility] HospitalExtra SSTon 01-48-0704Ayck CollectedYesInvalid Interpretation [facility] ToledoComment on above: Performed By: #### [id number], 67080795, 0362449085, 0810868, 0890283409, 6930219237, 9767623968 ####[facility] (DEFAULT)[address] [place], [place] [address]Qqfdyich Note - Nurseon 97-62-3772Mombbkyn Note - NursePatient walks to room 5. Patient is alert and oriented. Patient is here for a migraine and dizziness. Patient has been experiencing it for the past two days. Patient has a history of migraines, whichstarted 3 months ago after she gave to her child. [Electronically Signed on: 06/09/2023 12:29 EST] Herevia, September RN [Verified on: 06/09/2023 12:29 EST] Herevia, September RNNormalMagruder HospitalUA w Culture if Ind Standardon 12-65-8738Zzbtgflniu UANormalMagruder HospitalComment on above:Performed By: #### [id number] ####[facility] (DEFAULT)[address] [place] [address] 71326Iwlkq (U)YellowNormalMagrtrihealth bethesda butler hospital HospitalComment on above: Performed By: #### [id number] ####[facility] (DEFAULT)[address] [place] [address] 33666Snsiqiz?Not IndicatedInvalid Interpretation Code [facility] HospitalComment on above:Result Comment: Result created by rule GL_MAGR_ADD_UA_CULT1Performed By: #### [id number] ####[facility] (DEFAULT)[address] [place] [address] 45700Otmfaos (U) [Mass/Vol]Negative NormalMagrtrihealth bethesda butler hospital HospitalComment on above:Performed By: #### [id number] ####[facility] (DEFAULT)[address] [place] [address] 62786Bmuuxzy Ql (U)NegativeNormalMachillicothe va medical center HospitalComment on above:Performed By: #### [id number] ####[facility] (DEFAULT)[address] [place] [address] 68715Hemcu?Not IndicatedInvalid Interpretation CodeMagrtrihealth bethesda butler hospital HospitalComment on above:Result Comment: Result created by rule GL_MAGR_ADD_UA_MICROPerformed By: #### [id number] ####[facility] (DEFAULT)[address] [place] [address] 36170WC BilirubinNegativeNormalOhiohealth [facility] HospitalComment on above:Performed By: #### [id number] ####[facility] (DEFAULT)[address] [place] [address] 93445BB BloodNegativeNormalNEGATIVEOhiohealth [facility] HospitalComment on above:Performed By: #### [id number] ####[facility] (DEFAULT)[address] [place] [address] 10105FN ClarityCLEARNormalCLEAROhiohealth [facility] HospitalComment on above: Performed By: #### [id number] ####[facility] (DEFAULT)[address] [place] [address] 48798MX Leuk EstNegativeNormalNEGATIVEProtestant Deaconess Hospital Comment on above:Performed By: #### [id number] ####[facility] (DEFAULT)[address] [place] [address] 76151BP NitriteNegativeNormalNEGATIVE [facility] HospitalComment on above:Performed By: #### [id number] ####[facility] (DEFAULT)[address] [place] [address] 95064FC pH6.8Ckkwfe1-4 [facility] HospitalComment on above:Performed By: #### [id number] ####[facility] (DEFAULT)[address] [place] [address] 12009AG ProteinNegative NormalNEGMarymount HospitalComment on above:Performed By: #### [id number] ####[facility] (DEFAULT)[address] [place] [address] 57324JX Spec Grav1.860Eeohse0.001-1.035[facility] HospitalComment on above:Performed By: #### [id number] ####[facility] (DEFAULT)[address] [place] [address] 99335EG Urobilinogen0.2 mg/dLNormal0.2-1.0[facility] HospitalComment on above: Performed By: #### [id number] ####[facility] (DEFAULT)[address] [place] [address] 55895Vrdld SourceClean CatchNormMansfield Hospital Comment on above:Performed By: #### [id number] ####[facility] (DEFAULT)[address] [place] [address] 84948KO Clinical Summaryon 06-04-2023 ED [facility] [address] [place] [address] Clinical Summary PERSON INFORMATION Name: BARBRA CLAROS Age: 27 Years Sex: FEMALE : 1995 MRN: Acct#: Visit Reason: UC - Cough; UC - Sinus Pain or Congestion; CONGESTION, NAUSEA, SINUS PRESSURE, HEADACHE Arrival: 06/04/2023 10:57:44 Discharge: 06/04/2023 12:05:00 LOS: 000 01:08 Check In: 06/04/2023 10:57:44 Checkout: 06/04/2023 12:05:00 Address: [address] [facility] [address] PCP: Provider, None PROVIDER INFORMATION Provider Role Assigned Unassigned Francia Nation TEMPERING OVEN OPERATOR Nurse 06/04/2023 11:00:21 Luis Alfredo Mitchell ED PA 06/04/2023 11:19:15 VITALS INFORMATION Vital Sign Triage Latest Temperature Tympanic Temperature Temporal Artery Pulse Rate O2 Sat 98 % 98 % Respiratory Rate Blood Pressure /68 mmHg /68 mmHg MEDICAL INFORMATION Medications Given: Allergy Information: Triaminic Allergy; chlorpheniramine/dextromethorphan/PSE PHYSICIAN DOCUMENTATION DISCHARGE INFORMATION: Discharge Disposition: Home [...] with medication to treat cough. May use saxy-sxa-ajcjoun cough and cold type medications, but make [...] - Patient/family/caregiver verbalizes understanding of instructions given Comment:[facility] HospitalED Patient Summaryon 50-03-5275MG Patient Summary [facility] ? Urgent Care [address] [place] [address] PATIENT DISCHARGE INSTRUCTIONS Patient Information Name: BARBRA CLAROS Age: 27 Years Date of : 1995 [facility]: [id number] Reason For Visit: UC - Cough; UC [...] with medication to treat cough. May use iikx-mye-rnnwojs cough and cold type medications, but make [...] Medicines to relieve symptoms. These can include euxy-eig-ibzkpse medicine for pain and fever, medicines for cough or congestion, and medicines to relieve diarrhea. ? Antiviral medicines. These medicines are available only for certain types of viruses. Some viral illnesses can be prevented with vaccinations. A common example is the flu shot. Follow these instructions at home: Medicines ? Take sgbl-aoh-uhuqonw and prescript (more content not included)...Normal [facility] Rapid CoV-2 (COVID-19) Antigen/ Flu A&Bon 06-04-2023 Influenza A POCTNegativeNormalNegFlower HospitalComment on above: Performed By: #### [id number] ####[facility] (DEFAULT)[address] [place] [address] 36175Zdoechmno B POCTNegativeNormalNegFlower HospitalComment on above:Performed By: #### [id number] ####[facility] (DEFAULT)[address] [place] [address] 67547MFJZ-XgU-0 (COVID-19) RNA MARICEL+probe Ql (Unsp spec)Not detectedNoMarion HospitalComment on above: Performed By: #### [id number] ####[facility] (DEFAULT)[address] [place] [address] 89305Fqtfet Care Recordon 85-80-5045Dlxwqr Care Record [facility] ? Urgent Care [address] [place] [address] PATIENT DISCHARGE INSTRUCTIONS Patient Information Name: BARBRA [...] diseases classified elsewhere (B97.89) UC - Cough ([id number]) UC - Sinus Pain or Congestion ([id number]) Viral respiratory illness (J98.8) If you received [...] with medication to treat cough. May use gujx-dwl-rbuskpx cough and cold type medications, but make [...] treatment you received today in the [facility] Urgent Care were for an urgent problem and are not intended as complete care. It is important for you to follow up with a doctor, nurse practitioner, or physician?s assistant finance director for ongoing care. If your symptoms become [...] so we can reach you if necessary. [facility] Care has provided you with a complete list of medications post discharge. Please inform your pediatrician active practice/provider of your visit and for further instruction on these medications. Any specific questions regarding your chronic medications and dosages should be discussed with your primary care physician(s) and/or pharmacist. New Medications [facility], [address] [place] [id number], [phone] benzonatate (Tessalon Perles 100 mg oral capsule) [...] oral tablet) 1 tab(s) Oral (given by mouth)every day. ferrous sulfate (FeroSul 325 mg (65 [...] Information Allergies: Substance Reaction Symptoms Type Comments chlorpheniramine/dextromethorphan/PSE Drug Triaminic Allergy Anaphylactic reaction Drug Vital Signs: Vitals and Measurements this Visit (last charted value for your 06/04/2023 visit) Vital Signs This Visit Temperature Temporal: 36 (more content not included)...[facility] Coding Summaryon 42-90-8921Ornnui SummaryHTMLBase 64 IfsxcveyXQl1jKl+PGhlYWQ+KY8CJKUrW77urFZcoA8bP2FEVCqVEixpJWGSTQxWGiRjidImJV3siQDd ZXJu [file] ZXI (more content not included)...NormalOhiohealth [facility] Hospital.Auto Diff 1on 95-03-8899Rzaz [place] %8 %Normal1-12[facility] HospitalComment on above:Performed By: #### [id number], 6874053, 2507558, 3618362531, [id number] ####[facility] (DEFAULT)[address] [place] [address] 67680Pwql Abs#0.0 i58Xltdig2.0-0.2 [facility] HospitalComment on above:Performed By: #### [id number], 8796715, 6863792, 0595580518, 31250310 ####[facility] (DEFAULT)[address] [place] [address] 83611Wwlcojbxj/100 WBC (Bld)0.4 %Normal0.2-2.0[facility] HospitalComment on above:Performed By: #### [id number], 1765473, 4392497, 4773979069, 31597534 ####[facility] (DEFAULT)[address] [place] [address] 40568Yqz Abs#0.4 n87Pzlynh4.0-0.4[facility] HospitalComment on above: Performed By: #### [id number], 3444617, 7664357, 7382457472, 87398908 ####[facility] (DEFAULT)[address] [place] [address] 55150 Eosinophils/100 WBC (Bld)4.9 %High0.9-4.0[facility] HospitalComment on above: Performed By: #### [id number], 7454160, 3016821, 6795477235, 79259639 ####[facility] (DEFAULT)[address] [place] [address] 92416Ssjgn Abs# 3.3 r78Qzer1.3-2.9Magrtrihealth [facility] hospital HospitalComment on above:Performed By: #### [id number], 4390264, 1656162, 1605731478, 15968163 ####[facility] (DEFAULT)[address] [place] [address] 82446Vwugkzfrspr/100 WBC (Bld)43 % Yohrdr75-29Ngmzdfgs HospitalComment on above:Performed By: #### [id number], 5684375, 7007519, 9317725620, 38827947 ####[facility] (DEFAULT)[address] [place] [address] 81883Mavv Abs#0.6 z49Wnlpeq4.0-0.8Magrtrihealth [facility] Hospital Comment on above:Performed By: #### [id number], 0398426, 0268584, 8117781636, 64684047 ####[facility] (DEFAULT)[address] [place] [address] 69426 Neut Abs#3.4 q88Zaiavf7.5-9.2Magrtrihealth [facility] HospitalComment on above:Performed By: #### [id number], 2869689, 9791802, 0176845123, 36608372 ####[facility] (DEFAULT)[address] [place] [address] 78914Kpzqbrzmnyz/100 WBC (Bld)44 % Bkeepe87-99Vulbbwcv HospitalComment on above:Performed By: #### [id number], 7460359, 7350950, 8451557136, 20579824 ####[facility] (DEFAULT)[address] [place] [address] 49902VDA w/ Auto Diffon 92-15-3277Dqqrdvkuuku distribution width (RBC) [Ratio]17.9 %High11.5-15.0[facility] HospitalComment on above:Performed By: #### [id number], 7697954, 6922800, 1376205195, 03090455 ####[facility] (DEFAULT)[address] [place] [address] 03635Cvmitraqbo (Bld) [Volume fraction]32.9 %Low33.7-40.4[facility] HospitalComment on above: Performed By: #### [id number], 4985422, 9250230, 7015947580, 15964000 ####[facility] (DEFAULT)[address] [place] [address] 32253Hlhtwmimgf (Bld) [Mass/Vol]10.6 g/dLLow11.3-15.9[facility] HospitalComment on above:Performed By: #### [id number], 3348048, 4499287, 2544020145, 17988142 ####[facility] (DEFAULT)[address] [place] [address] 85662Gvx Diff?AutoInvalid Interpretation CodeOhiohealth Arthur G.[facility]. [facility], [facility], [facility] HospitalComment on above:Performed By: #### [id number], 7908254, 5541711, 7077904649, 80057541 ####[facility] (DEFAULT)[address] [place] [address] 73643DDZ (RBC) [Entitic mass]26 pg Qmuyqm59-89Bvbixdnv HospitalComment on above:Performed By: #### [id number], 8097728, 7251358, [id number], [id number] ####[facility] (DEFAULT)[address] [place] [address] 88731MNUS (RBC) [Mass/Vol]32 g/xMHtroqn94-22Ptbdbxia HospitalComment on above:Performed By: #### [id number], 4778342, 2502952, [id number], 77605192 ####[facility] (DEFAULT)[address] [place] [address] 08643ZXL (RBC) [Entitic vol]81 zGRjtjfp75-662Hfgrvpfq Hospital Comment on above:Performed By: #### [id number], 6798142, 9194478, [id number], 32866563 ####[facility] (DEFAULT)[address] [place] [address] Plciowcm558 s48Vvrvgq853-283Xnkaewgp HospitalComment on above:Performed By: #### [id number], 3467366, 9315212, 4022165827, 83050644 ####[facility] (DEFAULT)[address] [place] [address] 56892Rdwrriqk mean volume (Bld) [Entitic vol]7.8 fLNormal6.3-10.2Mag[facility]uder HospitalComment on above:Performed By: #### [id number], 0821712, 3269928, 7345004227, 65008794 ####[facility] (DEFAULT)[address] [place] [address] 52520BZB1.05 t32Dqfmgs6.70-5.30 [facility] HospitalComment on above:Performed By: #### [id number], 9269152, 3869861, 8649067805, [id number] ####[facility] (DEFAULT)[address] [place] [address] 32315YIW3.7 x85Stqkqb7.5-10.5Magrtri[facility] HospitalComment on above:Performed By: #### [id number], 4490085, 1932034, 1474038407, 73092266 ####[facility] (DEFAULT)[address] [place] [address] 85321PEM Standardon 71-55-8114Bzcsgyfvhe ChemNormalAkgrtrihealth bethesda butler hospital HospitalComment on above:Performed By: #### [id number], 5762084, 7492353, [id number], 07026606 ####[facility] (DEFAULT)[address] [place] [address] 57734qWYP Non AA>60Invalid Interpretation CodeOhiohealth Arthur G.[facility]. [facility], [facility], [facility] HospitalComment on above:Performed By: #### [id number], 7387512, 9243497, [id number], 41958731 ####[facility] (DEFAULT)[address] [place] [address] 03310tYCJ AA>60Invalid Interpretation CodeOhiohealth [facility] HospitalComment on above:Performed By: #### [id number], 5150522, 8926330, 1487173164, 42968402 ####[facility] (DEFAULT)[address] [place] [address] 75623Qcrmqay/Globulin [Mass ratio]1.2 {ratio}Low1.4-2.6 [facility] HospitalComment on above:Performed By: #### [id number], 5147263, 2294740, 1637071592, 55088605 ####[facility] (DEFAULT)[address] [place] [address] 94547Wcevf gap [Moles/Vol]7.6 mmol/LNormal5.0-19.0 [facility] HospitalComment on above:Performed By: #### [id number], 2125061, 6746655, 2511721686, 22630255 ####[facility] (DEFAULT)[address] [place] [address] 88994Zlvqhwpz (S) [Mass/Vol]3.2 g/dLNormal1.5-4.3[facility] HospitalComment on above:Performed By: #### [id number], 2858870, 6108388, 4333192052, 75663291 ####[facility] (DEFAULT)[address] [place] [address] 36086Lfzjzozvwk285 mOsm/LInvalid Interpretation CodeOhiohealth [facility] HospitalComment on above:Performed By: #### [id number], 6361036, 5518921, 4116311765, 21064134 ####[facility] (DEFAULT)[address] [place] [address] 36726Olad nitrogen/Creatinine [Mass ratio]20.3 mg/mgHigh4.6-16.2 [facility] HospitalComment on above:Performed By: #### [id number], 7437080, 1319345, 1872477746, 84908196 ####[facility] (DEFAULT)[address] [place] [address] 27042Pyexbzd [Mass/Vol]3.9 g/dLNormal3.5-5.0[facility] HospitalComment on above:Performed By: #### 518154617, 1320963, 0244972, 7021118106, 81924764 ####[facility] (DEFAULT)[address] [place] [address] 00854Gba Phos44 IU/JRzaytq49-56Rraebjwh HospitalComment on above: Performed By: #### [id number], 2508030, 5266423, 5396707397, 79779555 ####[facility] (DEFAULT)[address] [place] [address] 23405PQE [Catalytic activity/Vol]39.0 U/DHvijxf22.0-54.0[facility] HospitalComment on above:Performed By: #### [id number], 4134627, 2920209, 9243913370, 64063082 ####[facility] (DEFAULT)[address] [place] [address] 84243YFL [Catalytic activity/Vol]28 U/FNzekoi06-38Svpafzje HospitalComment on above: Performed By: #### [id number], 3982565, 2365342, 7396913798, 37941690 ####[facility] (DEFAULT)[address] [place] [address] 81263Rvte Total 0.4 mg/dLNormal0.3-1.2[facility] HospitalComment on above:Performed By: #### [id number], 9620776, 5100155, 1484303790, 53021461 ####[facility] (DEFAULT)[address] [place] [address] 19540Ayyiike [Mass/Vol]8.6 mg/dLLow 8.9-10.3[facility] HospitalComment on above:Performed By: #### 734572101, 1419034, 6446332, 8849582456, 25293125 ####[facility] (DEFAULT)[address] [place] [address] 02906Gcofsndo [Moles/Vol]107 mmol/XZomeyv106-606Csqbqxvi HospitalComment on above:Performed By: #### 496286661, 7059354, 9931995, 7274235264, 58847037 ####[facility] (DEFAULT)[address] [place] [address] 07357YO6 [Moles/Vol]27 mmol/MAgxggl42-01Egllzvui HospitalComment on above:Performed By: #### 055373343, 8896927, 2188455, 1944586722, 86742918 ####[facility] (DEFAULT)[address] [place] [address] 24855Dyqvmuaqyg [Mass/Vol]0.64 mg/dLNormal0.60-1.30[facility] HospitalComment on above:Performed By: #### 581177097, 6900673, 2026556, 6978360853, 57513522 ####[facility] (DEFAULT)[address] [place] [address] 88121Hdtvpua [Mass/Vol]93.0 mg/dL Vdrfoz68.0-118.0[facility] HospitalComment on above:Performed By: #### [id number], 3881116, 9520943, 2685686462, 84844141 ####[facility] (DEFAULT)[address] [place] [address] 27732Wxhkdyrpd [Moles/Vol]3.6 mmol/LNormal3.6-5.1 [facility] HospitalComment on above:Performed By: #### [id number], 3922388, 2245190, 9144066788, 51981170 ####[facility] (DEFAULT)[address] [place] [address] 45243Bieoobu [Mass/Vol]7.1 g/dLNormal6.5-8.1[facility] HospitalComment on above:Performed By: #### 209185090, 9674481, 4798316, 1162872942, 93901435 ####[facility] (DEFAULT)[address] [place] [address] 03054Jieqlq [Moles/Vol]138.0 mmol/KHvfyfh905.0-144.0[facility] HospitalComment on above:Performed By: #### [id number], 2290870, 2763323, 7267013882, 24006909 ####[facility] (DEFAULT)[address] [place] [address] 93336Xhbq nitrogen [Mass/Vol]13 mg/dLNormal02-11[facility] Comment on above:Performed By: #### 141374358, 3266145, 7193367, 9207670417, 97600844 ####[facility] (DEFAULT)[address] [place] [address] ED Clinical Summaryon 25-21-8148EF Clinical SummaryPro[facility] - [facility] [address] [place], [place] [id number] ED Clinical Summary PERSON INFORMATION Name: BARBRA CLAROS Age: 27 Years Sex: FEMALE : 1995 MRN: Acct#: Visit Reason: Vaginal bleeding; Vaginal bleeding; VAGINAL BLEEDING Arrival: 04/15/2023 23:05:13 Discharge: 04/16/2023 03:19:00 LOS: 000 04:14 Check In: 04/15/2023 23:05:13 Checkout:04/16/2023 03:19:00 Address: [address] [place] [address] PCP: Provider, None PROVIDER INFORMATION Provider Role Assigned Unassigned Doreen Lowe RN ED Nurse 04/15/2023 23:48:50 Luis Alfredo Shepherd DO [...] 2.5 mg PO Allergy Information: Triaminic Allergy; chlorpheniramine/dextromethorphan/PSE PHYSICIAN DOCUMENTATION Patient: BARBRA CLAROS MRN: [id number] Age: 27 years Sex: FEMALE : 1995 Associated Diagnoses: Dysfunctional uterine bleeding Author: Luis Alfredo Shepherd DO Basic Information Time seen: Date & time 04/16/2023 00:21:00. History source: Patient. Arrival mode: Private vehicle, walking. History limitation: None. Additional information: Patient's physician(s): Smoker, drove herself to the ER, first period sincedelivery, child doing well, . History of Present [...] that she would call Dr. Gurrola, her [employer]OX [employer] doctor on Monday for an assistance. She [...] Impression and Plan Diagnosis Dysfunctional uterine bleeding (OAP70-HM N93.8, Discharge, Medical) Plan Condition: Improved. Disposition: Discharged. Prescriptions Patient was given the following educational materials: Menorrhagia, Cjwa-tn-Hgpv. Follow up with: ; Michael Gurrola In 2 days 04/18/2023 home ibuprofen for cramps Provera: one tab daily to reduce the bleeding continue your iron pills Call Dr Gurrola on Monday, for a recheck apt w (more content not included)...[facility]ED [facility] - Physicianon 22-16-4430IQ Note - PhysicianPatient: BARBRA CLAROS Age: 27 years Sex: FEMALE : 1995 Associated Diagnoses: Dysfunctional uterine bleeding Author: Luis Alfredo Shepherd DO Basic Information Time seen: Date & time 04/16/2023 00:21:00. History source: Patient. Arrival mode: Private vehicle, walking. History limitation: None. Additional information: Patient's physician(s): Smoker, drove herself to the ER, first period sincedelivery, child doing well, . History of Present [...] that she would call Dr. Gurrola, her [employer] doctor on Monday for an assistance. She [...] Impression and Plan Diagnosis Dysfunctional uterine bleeding (JZI39-AS N93.8, Discharge, Medical) Plan Condition: Improved. Disposition: Discharged. Prescriptions Patient was given the following educational materials: Menorrhagia, Boza-bc-Imby. Follow up with: ; Michael Gurrola In [...] on: 04/16/2023 03:19 EDT] Luis Alfredo Shepherd [facility]ED Patient Summaryon 53-73-0969GI Patient [facility] - Emergency Department [address] [place] [address] [id number] PATIENT DISCHARGE INSTRUCTIONS Patient Information Name: BARBRA CLAROS Age: 27 Years Date of : 1995 Reason For Visit: Vaginal bleeding; Vaginal bleeding; VAGINAL BLEEDING Arrival Time: 04/15/2023 23:05:13 Primary Care Physician: Provider, None Attending Physician: Luis Alfredo Shepherd DO Comment: Visit Diagnosis: Diagnoses This Visit Dysfunctional uterine bleeding (N93.8) Vaginal bleeding ([id number]) Vaginal bleeding ([id number]) The Pharmacy at [facility] is open Monday through Monday from 9A to 6P and Monday and Monday from 9A to 5P Prescription Information: If you have been given a prescription for narcotics, seek immediate medical attention if you have any difficulty breathing or any sudden status changes such as confusion andsleepiness. If you or anyone you know is experiencing suicidal thoughts, mental health, alcohol and/or drug addiction problems; contact the [facility] 09/01 Crisis Hotline -Text 4HHLW mx 390160. If you received any narcotics, sedation, or [...] With: Address: When: Michael Gurrola [address], [address] [place] [address] Business (1) In 2 days [...] treatment you received today in the [facility] Emergency Department were for an urgent problem and are not intended as complete care. It is important for you to follow up with a doctor, nurse practitioner, or physician?s assistant finance director for ongoing care. If your symptoms become worse or you donot improve as expected and you are unable [...] so we can reach you if necessary. [facility] Emergency Department has provided you with a complete list of medications post discharge. Please inform your pediatrician active practice/provider of your visit and for further instruction on these medications. Any specific questions regarding your chronic medications and dosages should be discussed with your primary care physician(s) and/or pharmacist. New Medications [facility], [address] [place] [address] [phone], [phone] medroxyPROGESTERone (medroxyPROGESTERone 5 mg oral tablet) 1 [...] Information Allergies: Substance Reaction Symptoms Type Comments chlorpheniramine/dextromethorphan/PSE Drug Triaminic Allergy Anaphylactic reaction Drug Vital [...] air Measurements This Visit (more content not included)...[facility] PT/PTTon 03-50-6405AMZ Coag (PPP) [Relative time]0.99 {INR}Normal0.91-1.11 [facility] HospitalComment on above:Performed By: #### [id number], 1318331, 7705485, 0935926846, 93182929 ####[facility] (DEFAULT)[address] [place] [address] 15822WA95.3 second(s)Normal9.7-11.8[facility] Comment on above:Performed By: #### [id number], 8091140, 7425891, 5791055787, 87222313 ####[facility] (DEFAULT)[address] [place] [address] 91602 PTT33 second(s)Ehzmdi29-86Ajyiszus HospitalComment on above:Performed By: #### [id number], 6348550, 0111102, 4555369606, 83487726 ####[facility] (DEFAULT)[address] [place] [address] 02732Heucrtrtz Test Serum 1on 53-08-6604Mtew Serum Internal ControlOKMercy Memorial HospitalComment on above: Performed By: #### [id number], 8473426, 1497815, 3793842259, 76169787 ####[facility] (DEFAULT)[address] [place] [address] 78941Wmhpveyqe Test Serum QualNegativeNoMarion HospitalComment on above:Performed By: #### [id number], 7938306, 8404571, 5541629266, 63397044 ####[facility] (DEFAULT)[address] [place] [address] 46055Xylvzvxuw Auto (Bld) [#/Vol] Ordered By: Jonathan Monahan on 01-37-6482Dmdhuxzhs (Bld) [#/Vol]0.0 10*3/uL0.0-0.2 [facility] HospitalBasophils/100 WBC Auto (Bld)Ordered By: Jonathan Monahan on 62-14-0469Nwivexruq/100 WBC (Bld)0.4 %.[facility] HospitalEosinophils Auto (Bld) [#/Vol]Ordered By: Jonathan Monahan on 02-27-2023 Eosinophils (Bld) [#/Vol]0.1 10*3/uL0.0-0.45[facility] Eosinophils/100 WBC Auto (Bld)Ordered By: Jonathan Monahan on 02-27-2023 Eosinophils/100 WBC (Bld)0.7 %.[facility] HospitalErythrocyte distribution width Auto (RBC) [Ratio]Ordered By: Jonathan Monahan on 02-27-2023 Erythrocyte distribution width (RBC) [Ratio]14.8 %11.9-15.3FOhioHealth Grove City Methodist HospitalHematocrit Auto (Bld) [Volume fraction]Ordered By: Jonathan Monahan on 65-47-3722Sgeiljaakb (Bld) [Volume fraction]27.5 %34.0-46.4FOhioHealth Grove City Methodist HospitalHemoglobin [Mass/volume] in BloodOrdered By: Jonathan Monahan on 67-95-2803Dmdueymxcf (Bld) [Mass/Vol]8.9 g/dL11.8-15.4FOhioHealth Grove City Methodist HospitalHepatitis B virus surface Ag [Presence] in Serum or Plasma by Immunoassay Ordered By: Jonathan Monahan on 12-58-4551CRB surface Ag IA QlNegativeNegative [facility] HospitalComment on above:Performed at: - [facility] [id number] Director: Alexander Jean Baptiste PhD, Phone: [phone] [#/volume] corrected for nucleated erythrocytes in Blood by Automated counOrdered By: Jonathan Monahan on 56-22-2791ZVT corrected for nucl RBC Auto (Bld) [#/Vol]9.6 10*3/uL3.8-11.6FOhioHealth Grove City Methodist Hospital Lymphocytes Auto (Bld) [#/Vol]Ordered By: Jonathan Monahan on 66-50-5415Svkmqmeselj (Bld) [#/Vol]2.6 10*3/uL1.00-4.8[facility] Lymphocytes/100 WBC Auto (Bld)Ordered By: Jonathan Monahan on 02-27-2023 Lymphocytes/100 WBC (Bld)26.9 %.[facility] HospitalH Auto (RBC) [Entitic mass]Ordered By: Jonathan Monahan on 38-18-5724MAI (RBC) [Entitic mass] 25.6 pg24.7-34.3FOhioHealth Grove City Methodist HospitalMCHC Auto (RBC) [Mass/Vol] Ordered By: Jonathan Monahan on 21-41-9149UDJV (RBC) [Mass/Vol]32.4 g/dL32.0-35.0 [facility] HospitalMCV Auto (RBC) [Entitic vol]Ordered By: Jonathan Monahan on 66-83-1689LVS (RBC) [Entitic vol]79.0 yD85-273QxceswvvzCleveland Clinic Avon HospitalMonocytes Auto (Bld) [#/Vol]Ordered By: Jonathan Monahan on 13-72-6834Ilnjvetnm (Bld) [#/Vol]0.7 10*3/uL0.0-0.8[facility] HospitalMonocytes/100 WBC Auto (Bld)Ordered By: Jonathan Monahan on 02-27-2023 Monocytes/100 WBC (Bld)7.1 %.[facility] HospitalNeutrophils Auto (Bld) [#/Vol]Ordered By: Jonathan Monahan on 79-37-0907Dttwgwtxjwn (Bld) [#/Vol]6.2 10*3/uL1.8-7.7FOhioHealth Grove City Methodist HospitalNeutrophils/100 WBC Auto (Bld) Ordered By: Jonathan Monahan on 29-14-7335Aewhjfrloeo/100 WBC (Bld)64.9 %.[facility] HospitalNo Panel InformationOrdered By: Jonathan Monahan on 16-68-5903Rejbqpy IgG Antibody2.22 indexImmune >0.99[facility] HospitalComment on above:Non-immune <0.90 Equivocal 0.90 - 0.99 Immune >0.99Performed at: CB - [facility] [address] [place], [place] [id number] Director: Alexander Jean Baptiste PhD, Phone: [phone] erythrocytes [Presence] in Blood by Automated countOrdered By: Jonathan Monahan on 02-27-2023 Nucleated RBC Auto Ql (Bld)0.2 /100{WBC}0-0.5FOhioHealth Grove City Methodist Hospital Platelet mean volume Auto (Bld) [Entitic vol]Ordered By: Jonathan Monahan on 11-04-9789Ccfbccur mean volume (Bld) [Entitic vol]7.5 fL6.3-10.7FOhioHealth Grove City Methodist HospitalPlatelets Auto (Bld) [#/Vol]Ordered By: Jonathan Monahan on 37-00-4373Fgpeozalg (Bld) [#/Vol]266 10*3/oW601-873MtqumrkfhCleveland Clinic Avon HospitalRBC Auto (Bld) [#/Vol]Ordered By: Jonathan Monahan on 69-93-8225XYD (Bld) [#/Vol]3.48 10*6/uL3.60-5.00[facility] HospitalWBC Auto (Bld) [#/Vol]Ordered By: Jonathan Monahan on 33-95-5176BDF (Bld) [#/Vol]9.6 10*3/uL 3.8-11.6FOhioHealth Grove City Methodist HospitalAmphetamine Screen Ql (U)Ordered By: Jonathan Monahan on 00-52-6919Sprjmqjkwerl Ql (U)NegativeNegProMedica Defiance Regional HospitalAutomated erythrocytes count in urine sediment (number/area) Ordered By: Jonathan Monahan on 17-10-7603GJS Auto (Urine sed) [#/Area]0-1 [HPF]0-4 [facility] HospitalAutomated leukocytes count in urine sediment (number/area)Ordered By: Jonathan Monahan on 93-10-6862UBP Auto (Urine sed) [#/Area]20-49 [HPF]0-4FOhioHealth Grove City Methodist HospitalBarbiturates [Presence] in Urine by Screen methodOrdered By: Jonathan Monahan on 16-79-6579Slilgchaaagw Screen Ql (U)NegativeNegProMedica Defiance Regional HospitalBenzodiazepines Screen Ql (U)Ordered By: Jonathan Monahan on 73-23-1676Hethcyaqinrvwtz Ql (U) NegativeNegativeCleveland Clinic Avon HospitalBenzoylecgonine [Presence] in Urine by Screen methodOrdered By: Jonathan Monahan on 79-99-0645Nhvfjelpnownysa Screen Ql (U)NegativeNegativeCleveland Clinic Avon HospitalBilirubin Test strip Ql (U)Ordered By: Jonathan Monahan on 74-71-1226Frqmgotkv Ql (U)Negative NegativeCleveland Clinic Avon HospitalColor Auto (U)Ordered By: Jonathan Moanhan on 56-02-7605Ndpho (U)YellowYellowCleveland Clinic Avon HospitalKetones Auto test strip (U) [Mass/Vol]Ordered By: Jonathan Monahan on 01-10-2721Hehaaan (U) [Mass/Vol]TraceNegativeCleveland Clinic Avon HospitalLaboratory - Urinalysis Ordered By: Jonathan Monahan on 36-36-1586Zasxsae casts LM Ql (Urine sed)0-8 [LPF] 0-8[facility] HospitalNitrite Test strip Ql (U)Ordered By: Jonathan Monahan on 86-28-7493Jgbyibl Ql (U)NegativeNegativeCleveland Clinic Avon HospitalOpiates [Presence] in Urine by Screen methodOrdered By: Jonathan Monahan on 79-06-7209Sfmfesc Screen Ql (U)NegativeNegativeCleveland Clinic Avon Hospital Phencyclidine Screen Ql (U)Ordered By: Jonathan Monahan on 08-79-7736Swtdujxwixbzs Ql (U)NegativeNegProMedica Defiance Regional HospitalComment on above:These are unconfirmed results and should not be used for legal purposes. Drug Cut-Off Concentration: AMPH 1000 ng/mL FIONA 200 ng/mL KIMMY 200 ng/mL COCM 300 ng/mL OP 300 ng/mL PCP 25 ng/mLProtein Auto test strip (U) [Mass/Vol]Ordered By: Jonathan Monahan on 60-85-8015Rokmhxk (U) [Mass/Vol]NegativeNegativeCleveland Clinic Avon HospitalReagin Ab [Presence] in Serum by RPROrdered By: Jonathan Monahan on 50-25-2355Nqsqff Ab RPR Ql (S)Non-ReactiveNon ReactiveCleveland Clinic Avon HospitalComment on above:Performed at: - [facility] [id number] Director: Alexander Jean Baptiste PhD, Phone: [phone] Specific gravity Auto test strip (U) [Rel density]Ordered By: Jonathan Monahan on 37-59-8285Atreewcp gravity (U) [Rel density]1.0161.001-1.030K[facility]tering Health Preblequamous epithelial cells detection in urine sediment by light microscopyOrdered By: Jonathan Monahan on 67-75-3788Uklpkdomic cells.squamous LM Ql (Urine sed)3-4 [HPF]0-2FOhioHealth Grove City Methodist HospitalUrine bacteria detection by automated methodOrdered By: Jonathan Monahan on 62-99-8093Dtqarmhx Auto Ql (U) 1+None SeenCleveland Clinic Avon HospitalUrine clarity by refractometry automatedOrdered By: Jonathan Monahan on 13-73-2346Cxwmccv Refractometry automated (U)CloudyClearFOhioHealth Grove City Methodist HospitalUrine culture routineOrdered By: Jonathan Monahan on 16-74-6105Hcmpexgo identified Cx Nom (U)2 DaysCleveland Clinic Avon HospitalUrine glucose measurement by automated test strip (mass/volume)Ordered By: Jonathan Monahan on 73-56-8492Fxjnnhp Auto test strip (U) [Mass/Vol]Normal mg/dLNormalCleveland Clinic Avon HospitalUrine hemoglobin detection by automated test stripOrdered By: Jonathan Monahan on 02-26-2023 Hemoglobin Auto test strip Ql (U)NegativeNegativeCleveland Clinic Avon HospitalUrine leukocyte esterase detection by automated test stripOrdered By: Jonathan Monahan on 71-51-5362Usomkeujc esterase Auto test strip Ql (U)3+Negative [facility] HospitalUrobilinogen Auto test strip (U) [Mass/Vol] Ordered By: Jonathan Monahan on 80-14-7506Owvusyaccckp (U) [Mass/Vol]Normal mg/dL NormalCleveland Clinic Avon HospitalpH Auto test strip (U)Ordered By: Jonathan Monahan on 11-74-0138gB (U)6.5 [pH]5.0-9.0[facility] Amphetamine Screen Ql (U)Ordered By: CARY Beltre on 02-25-2023 Amphetamines Ql (U)NegativeNegProMedica Defiance Regional HospitalBarbiturates [Presence] in Urine by Screen methodOrdered By: CARY Beltre on 60-38-2762Zvokyohtsfgh Screen Ql (U)NegativeNegativeCleveland Clinic Avon HospitalBenzodiazepines Screen Ql (U)Ordered By: CARY Betlre on 66-17-9674Npkthlucxfznxxt Ql (U)NegativeNegProMedica Defiance Regional HospitalBenzoylecgonine [Presence] in Urine by Screen methodOrdered By: CARY Beltre on 95-76-9065Pwvxapntrxegrjk Screen Ql (U)NegativeNegProMedica Defiance Regional HospitalBilirubin Test strip Ql (U)Ordered By: CARY Beltre on 76-56-8973Jflmzhpif Ql (U)NegativeNegProMedica Defiance Regional HospitalColor Auto (U)Ordered By: CARY Beltre on 52-77-2620Bnrkl (U) YellowYellowCleveland Clinic Avon HospitalKetones Auto test strip (U) [Mass/Vol]Ordered By: CARY Beltre on 00-51-6572Jepohsz (U) [Mass/Vol] NegativeNegProMedica Defiance Regional HospitalNitrite Test strip Ql (U) Ordered By: CARY Beltre on 70-21-2954Zblmdvz Ql (U)NegativeNegFayette County Memorial HospitalOpiates [Presence] in Urine by Screen method Ordered By: CARY Beltre on 57-54-2252Zmgqqip Screen Ql (U)Negative NegativeCleveland Clinic Avon HospitalPhencyclidine Screen Ql (U)Ordered By: CARY Beltre on 04-97-3814Kjobazgvvebuf Ql (U)NegativeNegProMedica Defiance Regional HospitalComment on above:These are unconfirmed results and should not be used for legal purposes. Drug Cut-Off Concentration: AMPH 1000 ng/mL FIONA 200 ng/mL KIMMY 200 ng/mL COCM 300 ng/mL OP 300 ng/mL PCP 25 ng/mLProtein Auto test strip (U) [Mass/Vol]Ordered By: CARY Beltre on 02-25-2023 Protein (U) [Mass/Vol]NegativeNegElyria Memorial Hospitalpecific gravity Auto test strip (U) [Rel density]Ordered By: CARY Beltre on 03-78-2899Mqvxlhdm gravity (U) [Rel density]1.0151.001-1.030[facility] HospitalUrine clarity by refractometry automatedOrdered By: CARY Beltre on 86-76-2276Ufubjah Refractometry automated (U)ClearClearFOhioHealth Grove City Methodist HospitalUrine glucose measurement by automated test strip (mass/volume)Ordered By: CARY Beltre on 31-16-2101Mvgngrq Auto test strip (U) [Mass/Vol]Normal mg/dLNormWexner Medical CenterUrine hemoglobin detection by automated test stripOrdered By: CARY Beltre on 68-75-0210Kypwsxomfa Auto test strip Ql (U)NegativeNegProMedica Defiance Regional HospitalUrine leukocyte esterase detection by automated test stripOrdered By: CARY Beltre on 92-90-3762Ygqidoidp esterase Auto test strip Ql (U) NegativeNegProMedica Defiance Regional HospitalUrobilinogen Auto test strip (U) [Mass/Vol]Ordered By: CARY Beltre on 97-22-3653Rnypuarizgsg (U) [Mass/Vol]Normal mg/dLNoPremier Health Miami Valley HospitalpH Auto test strip (U)Ordered By: CARY Beltre on 88-41-0455iP (U)6.5 [pH]5.0-9.0[facility] HospitalAmphetamine Screen Ql (U)Ordered By: MICHAEL GURROLA on 99-82-3548Adalxgvfgqpf Ql (U)NegativeNegProMedica Defiance Regional Hospital Automated erythrocytes count in urine sediment (number/area)Ordered By: MICHAEL GURROLA on 66-23-8308DMX Auto (Urine sed) [#/Area]0-1 [HPF]0-4FOhioHealth Grove City Methodist HospitalAutomated leukocytes count in urine sediment (number/area)Ordered By: MICHAEL GURROLA on 71-93-5909VQS Auto (Urine sed) [#/Area]5-9 [HPF]0-4FOhioHealth Grove City Methodist HospitalBarbiturates [Presence] in Urine by Screen methodOrdered By: MICHAEL GURROLA on 51-34-8168Pxdicjjpbdqp Screen Ql (U)NegativeNegative [facility] HospitalBenzodiazepines Screen Ql (U)Ordered By: MICHAEL GURROLA on 25-30-8661Tbeewmfjqxflyjp Ql (U)NegativeNegProMedica Defiance Regional HospitalBenzoylecgonine [Presence] in Urine by Screen methodOrdered By: MICHAEL GURROLA on 96-48-8755Xqdflctgpmbwwnu Screen Ql (U)NegativeNegProMedica Defiance Regional HospitalBilirubin Test strip Ql (U)Ordered By: MICHAEL GURROLA on 61-02-7030Hupwbnvzs Ql (U)NegativeNegProMedica Defiance Regional HospitalColor Auto (U)Ordered By: MICHAEL GURROLA on 01-61-8286Flvnq (U)YellowYellowCleveland Clinic Avon HospitalKetones Auto test strip (U) [Mass/Vol]Ordered By: MICHAEL GURROLA on 53-57-6671Ehdahaf (U) [Mass/Vol]NegativeNegProMedica Defiance Regional HospitalLaboratory - UrinalysisOrdered By: MICHAEL GURROLA on 02-22-2023 Hyaline casts LM Ql (Urine sed)0-8 [LPF]0-8[facility] Nitrite Test strip Ql (U)Ordered By: MICHAEL GURROLA on 39-21-3662Clbtdgz Ql (U) NegativeNegProMedica Defiance Regional HospitalNo Panel InformationOrdered By: MICHAEL GURROLA on 10-59-5328Hkghc Membranes Rupture (PAMG-1)NegativeNegFayette County Memorial HospitalOpiates [Presence] in Urine by Screen method Ordered By: MICHAEL GURROLA on 72-56-7350Kwotodz Screen Ql (U)NegativeNegative [facility] HospitalPhencyclidine Screen Ql (U)Ordered By: MICHAEL GURROLA on 86-19-9056Eosfncroxxeyx Ql (U)NegativeNegProMedica Defiance Regional HospitalComment on above:These are unconfirmed results and should not be used for legal purposes. Drug Cut-Off Concentration: AMPH 1000 ng/mL FIONA 200 ng/mL KIMMY 200 ng/mL COCM 300 ng/mL OP 300 ng/mL PCP 25 ng/mLProtein Auto test strip (U) [Mass/Vol]Ordered By: MICHAEL GURROLA on 10-06-0558Gbpmjch (U) [Mass/Vol] NegativeNegativeKettering Health Preblepecific gravity Auto test strip (U) [Rel density]Ordered By: MICHAEL GURROLA on 72-76-2018Jcreiora gravity (U) [Rel density]1.0131.001-1.030[facility] Preblequamous epithelial cells detection in urine sediment by light microscopyOrdered By: MICHAEL GURROLA on 52-06-6652Uygintgsap cells.squamous LM Ql (Urine sed)3-4 [HPF] 0-2FOhioHealth Grove City Methodist HospitalUrine bacteria detection by automated method Ordered By: MICHAEL GURROLA on 52-56-7884Hvbvjjpq Auto Ql (U)None seenNone Seen [facility] HospitalUrine clarity by refractometry automatedOrdered By: MICHAEL GURROLA on 40-15-3860Ivhksfi Refractometry automated (U)ClearClear [facility] HospitalUrine culture routineOrdered By: MICHAEL GURROLA on 70-24-7614Vonivdyd identified Cx Nom (U)[facility] Urine glucose measurement by automated test strip (mass/volume)Ordered By: MICHAEL GURROLA on 63-72-9549Mtnjpgs Auto test strip (U) [Mass/Vol]100 mg/dLNoal [facility] HospitalUrine hemoglobin detection by automated test stripOrdered By: MICHAEL GURROLA on 57-75-0917Gcqkxechou Auto test strip Ql (U) NegativeNegProMedica Defiance Regional HospitalUrine leukocyte esterase detection by automated test stripOrdered By: MICHAEL GURROLA on 85-30-8563Womqmtmlh esterase Auto test strip Ql (U)2+NegativeC[facility] Clinic Avon Hospital Urobilinogen Auto test strip (U) [Mass/Vol]Ordered By: MICHAEL GURROLA on 05-81-8680Nzighfuqmisw (U) [Mass/Vol]Normal mg/dLNormWexner Medical CenterpH Auto test strip (U)Ordered By: MICHAEL GURROLA on 66-34-1541oN (U) 7.0 [pH]5.0-9.0[facility] HospitalAmphetamine Screen Ql (U)Ordered By: JUANY CHOI on 38-51-7836Qxrcnmdqunbw Ql (U)NegativeNegProMedica Defiance Regional HospitalBarbiturates [Presence] in Urine by Screen methodOrdered By: JUANY CHOI on 56-89-5949Gosgvtiifddq Screen Ql (U)NegativeNegative [facility] HospitalBenzodiazepines Screen Ql (U)Ordered By: JUANY CHOI on 63-21-2048Ivwcmftqxhlmfex Ql (U)NegativeNegativeCleveland Clinic Avon HospitalBenzoylecgonine [Presence] in Urine by Screen method Ordered By: JUANY CHOI on 41-45-3344Tjrdrikohemmnlr Screen Ql (U)Negative NegativeCleveland Clinic Avon HospitalBilirubin Test strip Ql (U)Ordered By: JUANY CHOI on 82-59-4848Vrsxxpppo Ql (U)NegativeNegProMedica Defiance Regional HospitalColor Auto (U)Ordered By: JUANY CHOI on 51-74-0129Ttofm (U) YellowYellowCleveland Clinic Avon HospitalKetones Auto test strip (U) [Mass/Vol]Ordered By: JUANY CHOI on 11-08-2773Aaqzece (U) [Mass/Vol] NegativeNegProMedica Defiance Regional HospitalNitrite Test strip Ql (U) Ordered By: JUANY CHOI on 96-57-7902Niwtamc Ql (U)NegativeNegative [facility] HospitalNo Panel InformationOrdered By: JUANY CHOI on 01-08-3428Czoes Membranes Rupture (PAMG-1)NegativeNegative [facility] HospitalOpiates [Presence] in Urine by Screen method Ordered By: JUANY CHOI on 96-60-9626Jrezyzs Screen Ql (U)NegativeNegative [facility] HospitalPhencyclidine Screen Ql (U)Ordered By: JUANY CHOI on 66-31-4500Tmmmsgnqcsbbf Ql (U)NegativeNegativeCleveland Clinic Avon HospitalComment on above:These are unconfirmed results and should not be used for legal purposes. Drug Cut-Off Concentration: AMPH 1000 ng/mL FIONA 200 ng/mL KIMMY 200 ng/mL COCM 300 ng/mL OP 300 ng/mL PCP 25 ng/mLProtein Auto test strip (U) [Mass/Vol]Ordered By: JUANY CHOI on 31-30-6661Tnvotgy (U) [Mass/Vol]NegativeNegativeKettering Health Preblepecific gravity Auto test strip (U) [Rel density]Ordered By: JUANY CHOI on 20-06-2777Cnmuprkc gravity (U) [Rel density]1.0041.001-1.030[facility] HospitalUrine clarity by refractometry automatedOrdered By: JUANY CHOI on 02-19-2023 Clarity Refractometry automated (U)ClearClearFOhioHealth Grove City Methodist Hospital Urine glucose measurement by automated test strip (mass/volume)Ordered By: JUANY CHOI on 89-30-9106Dtgcugx Auto test strip (U) [Mass/Vol]Normal mg/dL NormalCleveland Clinic Avon HospitalUrine hemoglobin detection by automated test stripOrdered By: JUANY CHOI on 60-17-9642Cwwtserbhg Auto test strip Ql (U)NegativeNegProMedica Defiance Regional HospitalUrine leukocyte esterase detection by automated test stripOrdered By: JUANY CHOI on 02-19-2023 Leukocyte esterase Auto test strip Ql (U)NegativeNegProMedica Defiance Regional HospitalUrobilinogen Auto test strip (U) [Mass/Vol]Ordered By: JUANY CHOI on 33-40-9370Eunnonndvpqq (U) [Mass/Vol]Normal mg/dLNormalCleveland Clinic Avon HospitalpH Auto test strip (U)Ordered By: JUANY CHOI on 16-12-4334mR (U)6.5 [pH]5.0-9.0[facility] HospitalAmphetamine Screen Ql (U)Ordered By: CARY Beltre on 99-73-3690Futoreyomtnk Ql (U) NegativeNegProMedica Defiance Regional HospitalBarbiturates [Presence] in Urine by Screen methodOrdered By: CARY Beltre on 23-27-3962Mhogmihplvwp Screen Ql (U)NegativeNegProMedica Defiance Regional HospitalBenzodiazepines Screen Ql (U)Ordered By: CARY Beltre on 55-99-7999Vstgkykptbzqwvh Ql (U)NegativeNegProMedica Defiance Regional HospitalBenzoylecgonine [Presence] in Urine by Screen methodOrdered By: CARY Beltre on 02-17-2023 Benzoylecgonine Screen Ql (U)NegativeNegProMedica Defiance Regional Hospital Bilirubin Test strip Ql (U)Ordered By: CARY Beltre on 02-17-2023 Bilirubin Ql (U)NegativeNegProMedica Defiance Regional HospitalColor Auto (U) Ordered By: CARY Beltre on 15-58-9600Sazor (U)YellowYellowCleveland Clinic Avon HospitalKetones Auto test strip (U) [Mass/Vol]Ordered By: CARY Beltre on 32-27-6309Dlennvh (U) [Mass/Vol]NegativeNegProMedica Defiance Regional HospitalNitrite Test strip Ql (U)Ordered By: CARY Beltre on 54-87-4907Rbnzmka Ql (U)NegativeNegProMedica Defiance Regional Hospital Opiates [Presence] in Urine by Screen methodOrdered By: CARY Beltre on 83-59-1946Tzxxvtl Screen Ql (U)NegativeNegProMedica Defiance Regional Hospital Phencyclidine Screen Ql (U)Ordered By: CARY Beltre on 02-17-2023 Phencyclidine Ql (U)NegativeNegProMedica Defiance Regional HospitalComment on above:These are unconfirmed results and should not be used for legal purposes. Drug Cut-Off Concentration: AMPH 1000 ng/mL FIONA 200 ng/mL KIMMY 200 ng/mL COCM 300 ng/mL OP 300 ng/mL PCP 25 ng/mLProtein Auto test strip (U) [Mass/Vol]Ordered By: CARY Beltre on 00-69-4286Dmqcqfx (U) [Mass/Vol]NegativeNegThe Surgical Hospital at Southwoodspecific gravity Auto test strip (U) [Rel density]Ordered By: CARY Beltre on 94-64-9202Afxsxbzq gravity (U) [Rel density]1.0031.001-1.030[facility] HospitalUrine clarity by refractometry automatedOrdered By: CARY Beltre on 33-24-7880Kohordf Refractometry automated (U)ClearCleWhite HospitalUrine glucose measurement by automated test strip (mass/volume)Ordered By: CARY Beltre on 55-62-2978Khdkcvq Auto test strip (U) [Mass/Vol]Normal mg/dL NormalCleveland Clinic Avon HospitalUrine hemoglobin detection by automated test stripOrdered By: CARY Beltre on 03-90-4522Tplqxhubzt Auto test strip Ql (U)NegativeNegativeCleveland Clinic Avon HospitalUrine leukocyte esterase detection by automated test stripOrdered By: CARY Beltre on 48-71-4497Kxjhvvepu esterase Auto test strip Ql (U)NegativeNegativeCleveland Clinic Avon HospitalUrobilinogen Auto test strip (U) [Mass/Vol]Ordered By: CARY Beltre on 98-36-3676Hmqjvgyacbpf (U) [Mass/Vol]Normal mg/dLNormal [facility] HospitalpH Auto test strip (U)Ordered By: CARY Beltre on 69-33-8816mY (U)6.5 [pH]5.0-9.0[facility] Group B Streptococcus cultureOrdered By: MICHAEL GURROLA on 02-16-2023S. agalactiae Org specific cx Ql (Unsp spec)[facility]. agalactiae Org specific cx Ql (Unsp spec)[facility] HospitalAmphetamine Screen Ql (U)Ordered By: Jonathan Monahan on 72-50-3017Jkxnlzwnagkj Ql (U)Negative NegativeCleveland Clinic Avon HospitalBarbiturates [Presence] in Urine by Screen methodOrdered By: Jonathan Monahan on 58-48-1519Nwpiggwasumu Screen Ql (U) NegativeNegativeCleveland Clinic Avon HospitalBenzodiazepines Screen Ql (U) Ordered By: Jonathan Monahan on 89-61-8233Lqarodbmurogfym Ql (U)NegativeNegative [facility] HospitalBenzoylecgonine [Presence] in Urine by Screen methodOrdered By: Jonathan Monahan on 63-05-7401Akyczrlbxlxwzoq Screen Ql (U) NegativeNegProMedica Defiance Regional HospitalBilirubin Test strip Ql (U) Ordered By: Jonathan Monahan on 79-47-5005Bqhdwzdjj Ql (U)NegativeAultman HospitalColor Auto (U)Ordered By: Jonathan Monahan on 02-07-2023 Color (U)YellowYellowCleveland Clinic Avon HospitalKetones Auto test strip (U) [Mass/Vol]Ordered By: Jonathan Monahan on 87-81-3055Widvcwe (U) [Mass/Vol]Trace NegativeCleveland Clinic Avon HospitalNitrite Test strip Ql (U)Ordered By: Jonathan Monahan on 41-38-9976Jghunsq Ql (U)NegativeNegProMedica Defiance Regional HospitalOpiates [Presence] in Urine by Screen methodOrdered By: Jonathan Monahan on 32-39-3516Httxrbw Screen Ql (U)NegativeNegProMedica Defiance Regional HospitalPhencyclidine Screen Ql (U)Ordered By: Jonathan Monahan on 02-07-2023 Phencyclidine Ql (U)[facility] SystemComment on above:These are unconfirmed results and should not be used for legal purposes. Drug Cut-Off Concentration: AMPH 1000 ng/mL FIONA 200 ng/mL KIMMY 200 ng/mL COCM 300 ng/mL OP 300 ng/mL PCP 25 ng/mLProtein Auto test strip (U) [Mass/Vol]Ordered By: Jonathan Monahan on 42-79-0040Sqospok (U) [Mass/Vol]NegativeChildren's Hospital of Columbuspecific gravity Auto test strip (U) [Rel density]Ordered By: Jonathan Monahan on 46-36-9007Vrisnoyo gravity (U) [Rel density]1.006 1.001-1.030[facility] HospitalUrine clarity by refractometry automatedOrdered By: Jonathan Monahan on 30-79-9746Iexzfri Refractometry automated (U)ClearCleWhite HospitalUrine glucose measurement by automated test strip (mass/volume)Ordered By: Jonathan Monahan on 22-16-5408Vevlhlt Auto test strip (U) [Mass/Vol]Normal mg/dLNormalCleveland Clinic Avon HospitalUrine hemoglobin detection by automated test stripOrdered By: Jonathan Monahan on 27-43-4953Kkvlucntmq Auto test strip Ql (U)NegativeNegProMedica Defiance Regional HospitalUrine leukocyte esterase detection by automated test stripOrdered By: Jonathan Monahan on 41-57-7698Mjdfbtnpw esterase Auto test strip Ql (U)NegativeNegativeCleveland Clinic Avon HospitalUrobilinogen Auto test strip (U) [Mass/Vol]Ordered By: Jonathan Monahan on 69-51-4944Ggxswedomiwl (U) [Mass/Vol]Normal mg/dLNormalCleveland Clinic Avon HospitalpH Auto test strip (U)Ordered By: Jonathan Monahan on 62-85-2421aC (U)6.0 [pH]5.0-9.0[facility] HospitalAmphetamine Screen Ql (U)Ordered By: JUANY CHOI on 31-44-6536Lynftgfyqrvb Ql (U)NegativeNegProMedica Defiance Regional Hospital Automated erythrocytes count in urine sediment (number/area)Ordered By: JUANY CHOI on 25-91-8485RBB Auto (Urine sed) [#/Area]0-1 [HPF]0-4FOhioHealth Grove City Methodist HospitalAutomated leukocytes count in urine sediment (number/area)Ordered By: JUANY CHOI on 47-06-4462JFE Auto (Urine sed) [#/Area]0-1 [HPF]0-4FOhioHealth Grove City Methodist HospitalBarbiturates [Presence] in Urine by Screen methodOrdered By: JUANY CHOI on 20-45-1346Ymedolflrpym Screen Ql (U)NegativeNegProMedica Defiance Regional HospitalBenzodiazepines Screen Ql (U)Ordered By: JUANY CHOI on 97-76-7772Eylrbposgfqqzlk Ql (U) NegativeNegProMedica Defiance Regional HospitalBenzoylecgonine [Presence] in Urine by Screen methodOrdered By: JUANY CHOI on 57-84-1368Jrfrggchmxjuuny Screen Ql (U)NegativeNegativeCleveland Clinic Avon HospitalBilirubin Test strip Ql (U)Ordered By: JUANY CHOI on 51-21-2216Ogrkpowah Ql (U)Negative NegativeCleveland Clinic Avon HospitalColor Auto (U)Ordered By: JUANY CHOI on 57-12-8542Gpwmr (U)YellowYellowC[facility] Clinic [facility] Ketones Auto test strip (U) [Mass/Vol]Ordered By: JUANY CHOI on 01-26-2023 Ketones (U) [Mass/Vol]NegativeNegProMedica Defiance Regional Hospital Laboratory - UrinalysisOrdered By: JUANY CHOI on 44-02-6695Hluzrgy casts LM Ql (Urine sed)0-8 [LPF]0-8[facility] HospitalNitrite Test strip Ql (U)Ordered By: JUANY CHOI on 44-63-1316Vdqjind Ql (U)NegativeNegFayette County Memorial HospitalNo Panel InformationOrdered By: JUANY CHOI on 15-64-2033Pdooe Membranes Rupture (PAMG-1)NegativeNegFayette County Memorial HospitalOpiates [Presence] in Urine by Screen method Ordered By: JUANY CHOI on 78-16-3490Vryyocx Screen Ql (U)NegativeNegFayette County Memorial HospitalPhencyclidine Screen Ql (U)Ordered By: JUANY CHOI on 36-24-3527Mwzxuzwktvytv Ql (U)NegativeNegProMedica Defiance Regional HospitalComment on above:These are unconfirmed results and should not be used for legal purposes. Drug Cut-Off Concentration: AMPH 1000 ng/mL FIONA 200 ng/mL KIMMY 200 ng/mL COCM 300 ng/mL OP 300 ng/mL PCP 25 ng/mLProtein Auto test strip (U) [Mass/Vol]Ordered By: JUANY CHOI on 48-33-6627Wxzjimq (U) [Mass/Vol]Trace mg/dLNegElyria Memorial Hospitalpecific gravity Auto test strip (U) [Rel density]Ordered By: JUANY CHOI on 01-26-2023 Specific gravity (U) [Rel density]1.0211.001-1.030[facility] Preblequamous epithelial cells detection in urine sediment by light microscopy Ordered By: JUANY CHOI on 15-34-1195Frfwstzdys cells.squamous LM Ql (Urine sed)1-2 [HPF]0-2FOhioHealth Grove City Methodist HospitalUrine bacteria detection by automated methodOrdered By: JUANY CHOI on 28-81-7716Uaugdmlx Auto Ql (U) None seenNone SeenCleveland Clinic Avon HospitalUrine clarity by refractometry automatedOrdered By: JUANY CHOI on 26-25-0919Skuauak Refractometry automated (U)CloudyClearFOhioHealth Grove City Methodist HospitalUrine glucose measurement by automated test strip (mass/volume)Ordered By: JUANY CHOI on 96-06-4863Puoxkmm Auto test strip (U) [Mass/Vol]Normal mg/dL NormalCleveland Clinic Avon HospitalUrine hemoglobin detection by automated test stripOrdered By: JUANY CHOI on 64-14-7211Qpnjdffpla Auto test strip Ql (U)NegativeNegProMedica Defiance Regional HospitalUrine leukocyte esterase detection by automated test stripOrdered By: JUANY CHOI on 01-26-2023 Leukocyte esterase Auto test strip Ql (U)NegativeNegProMedica Defiance Regional HospitalUrobilinogen Auto test strip (U) [Mass/Vol]Ordered By: JUANY CHOI on 20-90-9627Vbmbbydvwsva (U) [Mass/Vol]Normal mg/dLNormalCleveland Clinic Avon HospitalpH Auto test strip (U)Ordered By: JUANY CHOI on 84-21-5753dY (U)6.0 [pH]5.0-9.0[facility] HospitalAmphetamine Screen Ql (U)Ordered By: Jonathan Monahan on 05-04-4073Faesamiyclop Ql (U)Negative [facility] HospitalAutomated erythrocytes count in urine sediment (number/area)Ordered By: Jonathan Monahan on 78-25-0695FFQ Auto (Urine sed) [#/Area]0-1 [HPF]0-4FOhioHealth Grove City Methodist HospitalAutomated leukocytes count in urine sediment (number/area)Ordered By: Jonathan Monahan on 17-89-8450HHF Auto (Urine sed) [#/Area]0-1 [HPF]0-4FOhioHealth Grove City Methodist Hospital Barbiturates [Presence] in Urine by Screen methodOrdered By: Jonathan Monahan on 01-50-2988Wvbucjdwqams Screen Ql (U)NegativeNegProMedica Defiance Regional HospitalBenzodiazepines Screen Ql (U)Ordered By: Jonathan Monahan on 01-24-2023 Benzodiazepines Ql (U)NegativeNegProMedica Defiance Regional Hospital Benzoylecgonine [Presence] in Urine by Screen methodOrdered By: Jonathan Monahan on 96-53-9694Cazjonayapnbxxh Screen Ql (U)NegativeNegProMedica Defiance Regional HospitalBilirubin Test strip Ql (U)Ordered By: Jonathan Monahan on 01-24-2023 Bilirubin Ql (U)NegativeNegProMedica Defiance Regional HospitalColor Auto (U) Ordered By: Jonathan Monahan on 85-58-9273Rarsl (U)YellowYellowCleveland Clinic Avon HospitalKetones Auto test strip (U) [Mass/Vol]Ordered By: Jonathan Monahan on 10-45-8868Uzepugr (U) [Mass/Vol]TraceNegativeC[facility] Clinic Avon Hospital Laboratory - UrinalysisOrdered By: Jonathan Monahan on 71-02-9686Cxyhgwd casts LM Ql (Urine sed)0-8 [LPF]0-8[facility] HospitalNitrite Test strip Ql (U)Ordered By: Jonathan Monahan on 52-61-0819Qplbdhp Ql (U)NegativeNegFayette County Memorial HospitalNo Panel InformationOrdered By: Jonathan Monahan on 22-14-8430Swefv Membranes Rupture (PAMG-1)NegativeAultman HospitalOpiates [Presence] in Urine by Screen methodOrdered By: Jonathan Monahan on 16-41-2270Xnfgtzu Screen Ql (U)NegativeNegProMedica Defiance Regional HospitalPhencyclidine Screen Ql (U)Ordered By: Jonathan Monahan on 01-24-2023 Phencyclidine Ql (U)NegativeNegProMedica Defiance Regional HospitalComment on above:These are unconfirmed results and should not be used for legal purposes. Drug Cut-Off Concentration: AMPH 1000 ng/mL FIONA 200 ng/mL KIMMY 200 ng/mL COCM 300 ng/mL OP 300 ng/mL PCP 25 ng/mLProtein Auto test strip (U) [Mass/Vol]Ordered By: Jonathan Monahan on 24-53-7723Kskipxk (U) [Mass/Vol]Trace mg/dLNegThe Surgical Hospital at Southwoodspecific gravity Auto test strip (U) [Rel density]Ordered By: Jonathan Monahan on 54-86-0474Nhkzppzu gravity (U) [Rel density]1.0131.001-1.030[facility] Preblequamous epithelial cells detection in urine sediment by light microscopyOrdered By: Jonathan Monahan on 65-56-9376Xwssqmnhgp cells.squamous LM Ql (Urine sed)0-1 [HPF]0-2FOhioHealth Grove City Methodist HospitalUrine bacteria detection by automated methodOrdered By: Jonathan Monahan on 44-90-1251Gzdagrvh Auto Ql (U)None seenNone SeenCleveland Clinic Avon HospitalUrine clarity by refractometry automatedOrdered By: Jonathan Monahan on 53-19-8699Uomeimj Refractometry automated (U)ClearClear [facility] HospitalUrine glucose measurement by automated test strip (mass/volume)Ordered By: Jonathan Monahan on 52-84-1486Rwfxqvr Auto test strip (U) [Mass/Vol]Normal mg/dLNoPremier Health Miami Valley HospitalUrine hemoglobin detection by automated test stripOrdered By: Jonathan Monahan on 75-06-7995Njwjrnurcf Auto test strip Ql (U)NegativeNegativeCleveland Clinic Avon HospitalUrine leukocyte esterase detection by automated test stripOrdered By: Jonathan Monahan on 82-32-2885Khmwcmarg esterase Auto test strip Ql (U)Negative NegativeCleveland Clinic Avon HospitalUrobilinogen Auto test strip (U) [Mass/Vol]Ordered By: Jonathan Monahan on 56-10-2525Gbnssaurqrgo (U) [Mass/Vol] Normal mg/dLNoPremier Health Miami Valley HospitalpH Auto test strip (U)Ordered By: Jonathan Monahan on 74-56-8454jA (U)6.0 [pH]5.0-9.0[facility] HospitalCoding Summaryon 23-84-0591Sbviku SummaryHTMLBase 64 UzqskjukOQf5wSb+PGhlYWQ+LI1CBQJxJ27ybZLhxC7tR4OUPPgNZaewDBQAIGkUXnEjaxUmSL7wnLPo ZXJu [file] YXB (more content not included)...[facility] HospitalCoding Summaryon 65-80-2448Ljymif SummaryHTMLBase 64 DrmuvmpyEDz0gYp+PGhlYWQ+XX3DYIShD09doURdvU7tF1QHRGdMDjxqPJXIFDjTAiRdqnBcIX2jrHHw ZXJu [file] ZXI (more content not included)...[facility] HospitalED Clinical Summaryon [id number] [facility] [address] [place] [id number] Clinical Summary PERSON INFORMATION Name: BARBRA CLAROS Age: 27 Years Sex: FEMALE : 1995 MRN: Acct#: Visit Reason: UC - Shoulder Pain or Swelling; RT ELBOW/SHOULDER PAIN Arrival: 01/16/2023 11:29:24 Discharge: 01/16/2023 12:40:00 LOS: 000 01:11 Check In: 01/16/2023 11:29:24 Checkout: 01/16/2023 12:40:00 Address: [address] [facility] [address] PCP: Provider, None PROVIDER INFORMATION Provider Role Assigned Unassigned Esther Friend PA-C ED PA 01/16/2023 12:04:40 Earlene RN, iMranda ED Nurse 01/16/2023 12:16:32 VITALS INFORMATION Vital Sign Triage Latest Temperature Tympanic Temperature Temporal Artery Pulse Rate O2 Sat 98 % 98 % Respiratory Rate Blood Pressure /60 mmHg /60 mmHg MEDICAL INFORMATION Medications Given: Allergy Information: Triaminic Allergy; chlorpheniramine/dextromethorphan/PSE PHYSICIAN DOCUMENTATION DISCHARGE INFORMATION: Discharge Disposition: Home Discharge Location: Home PATIENT EDUCATION INFORMATION Instructions: Shoulder Pain; Shoulder Range of Motion Exercises; How to Use a Sling Follow-Up: With: Address: When: Simona Holloway [phone] Within 1 to 2 days Comments: Call to help find a local primary care physician. With: Address: When: Return to this practice DIAGNOSIS: 1:Right shoulder injury Patient Understands: Yes - Patient/family/caregiver verbalizes understanding of instructions given Comment:[facility] HospitalED Patient Summaryon [id number] Patient Summary [facility] ? Urgent Care [address] [place] [address] [id number] PATIENT DISCHARGE INSTRUCTIONS Patient Information Name: BARBRA CLAROS Age: 27 Years Date of : 1995 Reason For Visit: UC - Shoulder Pain or Swelling; RT ELBOW/SHOULDER PAIN Arrival Time: 01/16/2023 11:29:24 Primary Care Physician: Moncho, Gerda Attending Physician: Esther Friend PA-C Comment: Patient Education With: Address: When: Simona Holloway [phone] Within 1 to 2 days Comments: Call [...] strengthen the arm. General instructions ? Take ituu-rvs-soggzpz and prescription medicines only as told by [...] provider. Document Revised: 02/18/2022 Document Reviewed: 02/18/2022 [employer] Patient Education ? 2022 [employer] Shoulder Range of Motion Exercises Shoulder [...] your health care provider. (more content not included)...[facility] HospitalAmphetamine Screen Ql (U) Ordered By: JUANY CHOI on 84-23-6407Nujpelznxqsl Ql (U)NegativeNegative [facility] HospitalBarbiturates [Presence] in Urine by Screen methodOrdered By: JUANY CHOI on 07-59-0994Qldjjkzizppx Screen Ql (U) NegativeNegProMedica Defiance Regional HospitalBenzodiazepines Screen Ql (U) Ordered By: JUANY CHOI on 01-18-3064Yaacjwdqeygvtmp Ql (U)NegativeNegative [facility] HospitalBenzoylecgonine [Presence] in Urine by Screen methodOrdered By: JUANY CHOI on 81-36-3626Pvfpqtkfnujcobb Screen Ql (U) NegativeNegativeCleveland Clinic Avon HospitalBilirubin Test strip Ql (U) Ordered By: JUANY CHOI on 54-71-7472Qgttshenw Ql (U)NegativeNegative [facility] HospitalColor Auto (U)Ordered By: JUANY CHOI on 32-62-8141Traag (U)YellowYellowCleveland Clinic Avon HospitalFetal fibronectinOrdered By: JUANY CHOI on 32-91-6818Imgstygbjas. (Vag fld) [Mass/Vol]NegativeNegativeCleveland Clinic Avon HospitalKetones Auto test strip (U) [Mass/Vol]Ordered By: JUANY CHOI on 79-05-9743Zbhciuw (U) [Mass/Vol]NegativeNegativeCleveland Clinic Avon HospitalNitrite Test strip Ql (U)Ordered By: JUANY CHOI on 44-61-2622Dzyzkln Ql (U)NegativeNegative [facility] HospitalOpiates [Presence] in Urine by Screen method Ordered By: JUANY CHOI on 71-08-6168Wgsqvwc Screen Ql (U)NegativeNegFayette County Memorial HospitalPhencyclidine Screen Ql (U)Ordered By: JUANY CHOI on 65-93-9282Cwmxeeedorjfz Ql (U)NegativeNegProMedica Defiance Regional HospitalComment on above:These are unconfirmed results and should not be used for legal purposes. Drug Cut-Off Concentration: AMPH 1000 ng/mL FIONA 200 ng/mL KIMMY 200 ng/mL COCM 300 ng/mL OP 300 ng/mL PCP 25 ng/mLProtein Auto test strip (U) [Mass/Vol]Ordered By: JUANY CHOI on 33-65-3742Npzejit (U) [Mass/Vol]NegativeNegElyria Memorial Hospitalpecific gravity Auto test strip (U) [Rel density]Ordered By: JUANY CHOI on 08-53-7590Dyajmwdz gravity (U) [Rel density]1.0071.001-1.030[facility] HospitalUrine clarity by refractometry automatedOrdered By: JUANY CHOI on 01-14-2023 Clarity Refractometry automated (U)[facility] Urine glucose measurement by automated test strip (mass/volume)Ordered By: JUANY CHOI on 33-37-1765Amjncbe Auto test strip (U) [Mass/Vol]Normal mg/dL NormalCleveland Clinic Avon HospitalUrine hemoglobin detection by automated test stripOrdered By: JUANY CHOI on 55-64-6515Iueuollsyk Auto test strip Ql (U)NegativeNegProMedica Defiance Regional HospitalUrine leukocyte esterase detection by automated test stripOrdered By: JUANY CHOI on 01-14-2023 Leukocyte esterase Auto test strip Ql (U)NegativeNegProMedica Defiance Regional HospitalUrobilinogen Auto test strip (U) [Mass/Vol]Ordered By: JUANY CHOI on 88-28-0866Darfueywpjws (U) [Mass/Vol]Normal mg/dLNormalCleveland Clinic Avon HospitalpH Auto test strip (U)Ordered By: JUANY CHOI on 98-90-3242fG (U)8.5 [pH]5.0-9.0[facility] HospitalCoding Summaryon 96-33-2481Btbgfp SummaryHTMLBase 64 CinorrllDFq5yIf+PGhlYWQ+BV5UYHDrG26zhNZrzP2sW7YHELxWFhniEGAZFIfYCoQjxzToIA5iuOCl ZXJu [file] YXB (more content not included)...[facility] HospitalCoding Summaryon 20-23-4596Guijiw SummaryHTMLBase 64 ZuhyjsebUAu7mDp+PGhlYWQ+BZ9OAQBmS57msDPycL6lK7UKCFyLVxifOCGJZFtFSyFdzeWnYG1ssHDm ZXJu [file] YXB (more content not included)...[facility] HospitalED Clinical Summaryon 52-82-4727GJ Clinical SummaryPro[facility] [address] [place] [id number] ED Clinical Summary PERSON INFORMATION Name: BARBRA CLAROS Age: 27 Years Sex: FEMALE : 1995 MRN: Acct#: Visit Reason: Ear drainage; Ear pain; RT EAR PAIN/DRAINAGE Arrival: 01/11/2023 07:59:56 Discharge: 01/11/2023 09:01:00 LOS: 000 01:02 Check In: 01/11/2023 07:59:56 Checkout:01/11/2023 09:01:00 Address: [address] [place] [address] PCP: Provider, None PROVIDER INFORMATION Provider Role Assigned Unassigned Anjel Yates MD ED Provider 01/11/2023 08:03:58 Kat Narvaez TEMPERING OVEN OPERATOR Nurse 01/11/2023 08:35:38 VITALS INFORMATION Vital Sign Triage Latest Temperature Tympanic Temperature Temporal Artery Pulse Rate 88 bpm 88 bpm O2 Sat 97 % 97 % Respiratory Rate 18 br/min 18 br/min Blood Pressure /73 mmHg /73 mmHg MEDICAL INFORMATION Medications Given: Allergy Information: Triaminic Allergy; chlorpheniramine/dextromethorphan/PSE PHYSICIAN DOCUMENTATION DISCHARGE INFORMATION: Discharge Disposition: Home Discharge Location: Home PATIENT EDUCATION INFORMATION Instructions: Follow-Up: With: Address: When: Follow up with primary care provider Within 3 to 5 days With: Address: When: None Provider [address] [place] [address] Within 3 to 5 days DIAGNOSIS: 1:Right otitis externa Patient Understands: Yes - Patient/family/caregiver verbalizes understanding of instructions given Comment:[facility] Patient Education Noteon [id number] Patient Education NoteEducation MaterialsNormOhioHealth Dublin Methodist Hospital Patient Summaryon 29-57-3227GR Patient SummaryPro[facility] - [facility] Department [address] [place] [address] PATIENT DISCHARGE INSTRUCTIONS Patient Information Name: BARBRA CLAROS Age: 27 Years Date of : 1995 Reason For Visit: Ear drainage; Ear pain; RT EAR PAIN/DRAINAGE Arrival Time: 01/11/2023 07:59:56 Primary Care Physician: Provider, None Attending Physician: Anjel Yates MD Comment: Visit Diagnosis: Diagnoses This Visit Ear drainage ([id number]) Ear pain ([id number]) Right otitis externa (H60.91) The Pharmacy at [facility] is open Monday through Monday from 9A to 6P and Monday and Monday from 9A to 5P Prescription Information: If you have been given a prescription for narcotics, seek immediate medical attention if you have any difficulty breathing or any sudden status changes such as confusion andsleepiness. If you or anyone you know is experiencing suicidal thoughts, mental health, alcohol and/or drug addiction problems; contact the [facility] 09/01 Crisis Hotline -Text 5SMFL py [phone]. If you received any narcotics, sedation, or [...] days With: Address: When: None Provider [address] [place] [address] Within 3 to 5 days Medication Information: The exam and treatment you received today in the [facility] Emergency Department were for an urgent problem and are not intended as complete care. It is important for you to follow up with a doctor, nurse practitioner, or physician?s assistant finance director for ongoing care. If your symptoms become worse or you donot improve as expected and you are unable [...] so we can reach you if necessary. [facility] Emergency Department has provided you with a complete list of medications post discharge. Please inform your pediatrician active practice/provider of your visit and for further instruction on these medications. Any specific questions regarding your chronic medications and dosages should be discussed with your primary care physician(s) and/or pharmacist. New Medications [facility] [id number], [address], [place] [id number], [phone] colistin/HC/neomycin/thonzonium otic (Cortisporin-TC otic suspension) 5 Drops Otic [...] Information Allergies: Substance Reaction Symptoms Type Comments chlorpheniramine/dextromethorphan/PSE Drug Triaminic Allergy Anaphylactic reaction Drug Vital [...] Nasopharyngeal Swab collected on (more content not included)...[facility] Teston 45-02-5846Fhgcuio [Mass/Vol]87 mg/dLNormal<=139 [facility] HospitalComment on above:Performed By: #### [id number] ####[facility] (DEFAULT)[address] [place], [place] [address]Prrykadt Orderson [phone] [id number]#1.00OTGTIFF [facility] HospitalCoding Summaryon 51-20-2242Yadyko SummaryHTMLBase 64 VblybjnbSSt3cBb+PGhlYWQ+TS3SCKTtD68lqACipL2tI3WQGSjWXlsvRUHOLIaQRmOxzfUgBC7slQWj ZXJu [file] YXB (more content not included)...[facility] HospitalAmphetamine Screen Ql (U)Ordered By: Jonathan Monahan on 84-56-9782Cqwxajrgecfi Ql (U)NegativeNegative [facility] HospitalBarbiturates [Presence] in Urine by Screen methodOrdered By: Jonathan Monahan on 46-67-6200Utaptsqvihtf Screen Ql (U)Negative [facility] HospitalBenzodiazepines Screen Ql (U)Ordered By: Jonathan Monahan on 67-84-1775Njmdfifebmsefwh Ql (U)NegativeNegProMedica Defiance Regional HospitalBenzoylecgonine [Presence] in Urine by Screen method Ordered By: Jonathan Monahan on 06-85-2407Lrcewxazzglywvq Screen Ql (U)Negative NegativeCleveland Clinic Avon HospitalBilirubin Auto test strip Ql (U)Ordered By: Jonathan Monahan on 35-14-1802Tgxdujxfz Ql (U)NegativeNegProMedica Defiance Regional HospitalFetal fibronectinOrdered By: Jonathan Monahan on 12-08-2022 Fibronectin. (Vag fld) [Mass/Vol]NegativeNegProMedica Defiance Regional HospitalKetones Auto test strip (U) [Mass/Vol]Ordered By: Jonathan Monahan on 23-82-6698Kqrujjm (U) [Mass/Vol]NegativeAultman HospitalNo Panel InformationOrdered By: Jonathan Monahan on 08-79-3099Gejyb Membranes Rupture (PAMG-1)NegativeAultman HospitalOpiates [Presence] in Urine by Screen methodOrdered By: Jonathan Monahan on 12-08-2022 Opiates Screen Ql (U)NegativeNegProMedica Defiance Regional Hospital Phencyclidine Screen Ql (U)Ordered By: Jonathan Monahan on 64-72-1181Wzfjbupxhggta Ql (U)NegativeAultman HospitalComment on above:These are unconfirmed results and should not be used for legal purposes. Drug Cut-Off Concentration: AMPH 1000 ng/mL FIONA 200 ng/mL KIMMY 200 ng/mL COCM 300 ng/mL OP 300 ng/mL PCP 25 ng/mLProtein Auto test strip (U) [Mass/Vol]Ordered By: Jonathan Monahan on 13-38-8359Drrydgk (U) [Mass/Vol]NegativeNegProMedica Defiance Regional HospitalUrine appearanceOrdered By: Jonathan Monahan on 34-18-9047Lnktopgnbr (U)ClearCleWhite HospitalUrine colorOrdered By: Jonathan Monahan on 30-95-6242Ereth (U)YellowYellowCleveland Clinic Avon HospitalUrine glucose measurement by automated test strip (mass/volume)Ordered By: Jonathan Monahan on 99-84-9514Qrzabrs Auto test strip (U) [Mass/Vol]Normal mg/dLAkron Children'S HospitalUrine hemoglobin detection by automated test stripOrdered By: Jonathan Monahan on 72-78-2388Nolkmaixbb Auto test strip Ql (U) NegativeNegProMedica Defiance Regional HospitalUrine leukocyte esterase detection by automated test stripOrdered By: Jonathan Monahan on 12-08-2022 Leukocyte esterase Auto test strip Ql (U)[facility] SystemUrine nitrite detection by automated test stripOrdered By: Jonathan Monahan on 38-91-7059Dlpyutn Auto test strip Ql (U)[facility] Health SystemUrobilinogen Auto test strip (U) [Mass/Vol]Ordered By: Jonathan Monahan on 73-20-7939Ldzqjwbaodrm (U) [Mass/Vol]Normal mg/dLNoGrant HospitalpH Auto test strip (U)Ordered By: Jonathan Monahan on 53-33-1868yQ (U)1.005 [pH]1.001-1.030[facility] HospitalpH (U) 7.0 [pH]5.0-9.0[facility] HospitalAmphetamine Screen Ql (U)Ordered By: Jonathan Monahan on 23-66-9051Vaiyrnpalyyr Ql (U)[facility] Health SystemAutomated erythrocytes count in urine sediment (number/area)Ordered By: Jonathan Monahan on 74-07-6843ETK Auto (Urine sed) [#/Area]1-2 [HPF]0-4FOhioHealth Grove City Methodist HospitalAutomated leukocytes count in urine sediment (number/area)Ordered By: Jonathan Monahan on 32-21-5422JBA Auto (Urine sed) [#/Area]1-2 [HPF]0-4FOhioHealth Grove City Methodist HospitalBarbiturates [Presence] in Urine by Screen methodOrdered By: Jonathan Monahan on 11-20-2022 Barbiturates Screen Ql (U)NegativeNegProMedica Defiance Regional Hospital Benzodiazepines Screen Ql (U)Ordered By: Jonathan Monahan on 11-20-2022 Benzodiazepines Ql (U)NegativeNegProMedica Defiance Regional Hospital Benzoylecgonine [Presence] in Urine by Screen methodOrdered By: Jonathan Monahan on 87-87-6678Cnuhaqjvkbbnwlt Screen Ql (U)NegativeNegProMedica Defiance Regional HospitalBilirubin Test strip Ql (U)Ordered By: Jonathan Monahan on 11-20-2022 Bilirubin Ql (U)NegativeNegProMedica Defiance Regional HospitalColor Auto (U) Ordered By: Jonathan Monahan on 75-22-4372Wrcxo (U)YellowYellowCleveland Clinic Avon HospitalFetal fibronectinOrdered By: Jonathan Monahan on 11-20-2022 Fibronectin. (Vag fld) [Mass/Vol]NegativeNegProMedica Defiance Regional HospitalKetones Auto test strip (U) [Mass/Vol]Ordered By: Jonathan Monahan on 06-00-1850Tkkwvqc (U) [Mass/Vol]TraceNegProMedica Defiance Regional Hospital Laboratory - UrinalysisOrdered By: Jonathan Monahan on 30-79-9387Tsjkkhm casts LM Ql (Urine sed)0-8 [LPF]0-8[facility] HospitalNitrite Test strip Ql (U)Ordered By: Jonathan Monahan on 63-02-4184Tvdkzvw Ql (U)[facility] HospitalNo Panel InformationOrdered By: Jonathan Monahan on 78-65-8754Azmye Membranes Rupture (PAMG-1)NegativeAultman HospitalOpiates [Presence] in Urine by Screen methodOrdered By: Jonathan Monahan on 29-82-4668Vmaixie Screen Ql (U)NegativeNegProMedica Defiance Regional HospitalPhencyclidine Screen Ql (U)Ordered By: Jonathan Monahan on 11-20-2022 Phencyclidine Ql (U)NegativeNegProMedica Defiance Regional HospitalComment on above:These are unconfirmed results and should not be used for legal purposes. Drug Cut-Off Concentration: AMPH 1000 ng/mL FIONA 200 ng/mL KIMMY 200 ng/mL COCM 300 ng/mL OP 300 ng/mL PCP 25 ng/mLProtein Auto test strip (U) [Mass/Vol]Ordered By: Jonathan Monahan on 03-36-6663Dicujkh (U) [Mass/Vol]Trace mg/dLNegative [facility] Health Preblepecific gravity Auto test strip (U) [Rel density]Ordered By: Jonathan Monahan on 95-10-0510Otefgdll gravity (U) [Rel density]1.0161.001-1.030[facility] Health Preblequamous epithelial cells detection in urine sediment by light microscopyOrdered By: Jonathan Monahan on 11-96-0421Mnwojsqriq cells.squamous LM Ql (Urine sed)1-2 [HPF]0-2FOhioHealth Grove City Methodist HospitalUrine bacteria detection by automated methodOrdered By: Jonathan Monahan on 96-48-4744Rjvfrrtl Auto Ql (U)None seenNone SeenCleveland Clinic Avon HospitalUrine clarity by refractometry automatedOrdered By: Jonathan Monahan on 94-63-0317Waguacp Refractometry automated (U)ClearClear [facility] HospitalUrine glucose measurement by automated test strip (mass/volume)Ordered By: Jonathan Monahan on 93-54-3773Bjjyjud Auto test strip (U) [Mass/Vol]Normal mg/dLSelect Medical Specialty Hospital - Cleveland-FairhillUrine hemoglobin detection by automated test stripOrdered By: Jonathan Monahan on 56-00-2636Lvabaxuzvl Auto test strip Ql (U)NegativeNegProMedica Defiance Regional HospitalUrine leukocyte esterase detection by automated test stripOrdered By: Jonathan Monahan on 12-87-6531Rcceayglq esterase Auto test strip Ql (U)Negative NegativeCleveland Clinic Avon HospitalUrobilinogen Auto test strip (U) [Mass/Vol]Ordered By: Jonathan Monahan on 45-80-8377Yxdmmzilcpsd (U) [Mass/Vol] Normal mg/dLNoPremier Health Miami Valley HospitalpH Auto test strip (U)Ordered By: Jonathan Monahan on 93-68-8187nP (U)5.5 [pH]5.0-9.0[facility] HospitalAmphetamine Screen Ql (U)Ordered By: JUANY CHOI on 11-03-2022 Amphetamines Ql (U)NegativeNegProMedica Defiance Regional HospitalBarbiturates [Presence] in Urine by Screen methodOrdered By: JUANY CHOI on 11-03-2022 Barbiturates Screen Ql (U)NegativeAultman Hospital Benzodiazepines Screen Ql (U)Ordered By: JUANY CHOI on 11-03-2022 Benzodiazepines Ql (U)NegativeAultman Hospital Benzoylecgonine [Presence] in Urine by Screen methodOrdered By: JUANY CHOI on 25-17-8106Dwgohbwswethtze Screen Ql (U)NegativeAultman HospitalBilirubin Test strip Ql (U)Ordered By: JUANY CHOI on 33-68-2752Luvzxmvkd Ql (U)NegativeAultman HospitalColor Auto (U)Ordered By: JUANY CHOI on 89-35-5265Byzaa (U)YellowYellow [facility] HospitalKetones Auto test strip (U) [Mass/Vol]Ordered By: JUANY CHOI on 45-02-0825Ychobmo (U) [Mass/Vol]NegativeNegFayette County Memorial HospitalNitrite Test strip Ql (U)Ordered By: JUANY CHOI on 25-40-7192Rvfeaqv Ql (U)[facility] SystemNo Panel InformationOrdered By: JUANY CHOI on 11-03-2022 Membranes Rupture (PAMG-1)[facility] Health SystemOpiates [Presence] in Urine by Screen methodOrdered By: JUANY CHOI on 18-82-7017Cgjpfgd Screen Ql (U)NegativeAultman HospitalPhencyclidine Screen Ql (U)Ordered By: JUANY CHOI on 11-03-2022 Phencyclidine Ql (U)[facility] SystemComment on above:These are unconfirmed results and should not be used for legal purposes. Drug Cut-Off Concentration: AMPH 1000 ng/mL FIONA 200 ng/mL KIMMY 200 ng/mL COCM 300 ng/mL OP 300 ng/mL PCP 25 ng/mLProtein Auto test strip (U) [Mass/Vol]Ordered By: JUANY CHOI on 80-72-6984Sqrsemg (U) [Mass/Vol]NegativeNegThe Surgical Hospital at Southwoodspecific gravity Auto test strip (U) [Rel density]Ordered By: JUANY CHOI on 04-84-4777Qoqeqkgc gravity (U) [Rel density]1.0131.001-1.030[facility] HospitalUrine clarity by refractometry automatedOrdered By: JUANY CHOI on 92-69-6815Rqzvhtf Refractometry automated (U)ClearMartin Memorial HospitalUrine glucose measurement by automated test strip (mass/volume)Ordered By: JUANY CHOI on 53-01-9896Wharkkw Auto test strip (U) [Mass/Vol]Normal mg/dL NormalCleveland Clinic Avon HospitalUrine hemoglobin detection by automated test stripOrdered By: JUANY CHOI on 82-15-9369Ovlmldsffu Auto test strip Ql (U)NegativeNegProMedica Defiance Regional HospitalUrine leukocyte esterase detection by automated test stripOrdered By: JUANY CHOI on 11-03-2022 Leukocyte esterase Auto test strip Ql (U)NegativeNegProMedica Defiance Regional HospitalUrobilinogen Auto test strip (U) [Mass/Vol]Ordered By: JUANY CHOI on 97-16-5083Nxdxtvszrvae (U) [Mass/Vol]Normal mg/dLNormalCleveland Clinic Avon HospitalpH Auto test strip (U)Ordered By: JUANY CHOI on 06-97-3244uG (U)7.0 [pH]5.0-9.0[facility] Vital Signs Date TimeVital SignValuePerforming XsbphqzkrEkncvntu03-05-8090 09:44-0500Body kucwue775.02 cmPHYSICIAN [facility] 09:44-0500Body mass index (BMI) [Ratio]34.9 kg/e4ANCHXEKWZ [facility]11-03-2025 09:44-0500Body aaivfgzhxfx77.5 [degF]PHYSICIAN [facility]11-03-2025 09:44-0500Body yjxswl91.47 kgPHYSICIAN [facility]11-03-2025 09:44-0500 Diastolic blood iiqevgum60 mm[Hg]PHYSICIAN NO [facility]11-03-2025 09:44-0500Heart rate94 /minPHYSICIAN [facility]11-03-2025 09:44-0500Respiratory rate16 /minPHYSICIAN [facility]11-03-2025 09:44-1706HcD3% (BldA) [Mass fraction]99 %PHYSICIAN NO [facility]11-03-2025 09:44-0500Systolic blood vxxlhxju239 mm[Hg]PHYSICIAN NO [facility]10-28-2025 11:40-0400Body mass index (BMI) [Ratio]31.96 kg/m2 Michael Gurrola MD Work Phone: [facility] CenterZmykgqbeyr76-76-0749 11:40-0400Body cipysx06.45 kgMichael Gurrola MD Work Phone: [phone] [place], [place] [address]Uewbujnegh40-31-5539 11:40-0400Diastolic blood evksdkzy43 mm[Hg]Michael Gurrola MD Work Phone: [phone]burgS[facility] CenterIabdxybcjv67-90-7744 11:40-0400Systolic blood rdmbnmug484 mm[Hg]Michael Gurrola MD Work Phone: [facility] CenterUivpdquliw05-21-2477 10:24-0400Body .02 cmPHYSICIAN [facility]10-17-2025 10:24-0400Body fkofwvyckng47 [degF]PHYSICIAN NO [facility] 04-04-2025 10:24-0400Body rbhans34 kgPHYSICIAN [facility]10-17-2025 10:24-0400Diastolic blood cfyyhtbz48 mm[Hg]PHYSICIAN NO [facility]10-17-2025 10:24-0400Heart aljb065 /min PHYSICIAN NO [facility]10-17-2025 10:24-0400 Respiratory rate20 /minPHYSICIAN [facility] 04-04-2025 10:24-5640WlH9% (BldA) [Mass fraction]100 %PHYSICIAN NO [facility]10-17-2025 10:24-0400Systolic blood jcevcdud576 mm[Hg]PHYSICIAN NO [facility]10-08-2025 12:00-0400 Diastolic blood jwkqjfli36 mm[Hg]PHYSICIAN NO [facility]10-08-2025 12:00-0400Heart rate94 /minPHYSICIAN [facility]10-08-2025 12:00-0400Respiratory rate16 /minPHYSICIAN NO [facility]10-08-2025 12:00-0946ArY4% (BldA) [Mass fraction]97 %PHYSICIAN NO [facility]10-08-2025 12:00-0400Systolic blood mm[Hg]PHYSICIAN NO [facility]10-08-2025 10:02-0400Body rylsamcijay84.9 [degF]PHYSICIAN NO [facility]10-08-2025 10:01-0400Body .56 cm PHYSICIAN NO [facility]10-08-2025 10:01-0400Body eyggvi39.6 kgPHYSICIAN [facility]10-07-2025 08:00-0400Body mugqozlidwz19.7 [degF]PHYSICIAN NO [facility]10-07-2025 08:00-0400Diastolic blood rsqxvxmu56 mm[Hg]PHYSICIAN NO [facility]10-07-2025 08:00-0400Heart rate86 /min PHYSICIAN NO [facility]10-07-2025 08:00-0400 Respiratory rate16 /minPHYSICIAN [facility] 03-25-2025 08:00-0316YvW5% (BldA) [Mass fraction]97 %PHYSICIAN NO [facility]10-07-2025 08:00-0400Systolic blood zninbmef596 mm[Hg]PHYSICIAN NO [facility]10-06-2025 19:09-0400 Inhaled oxygen flow rate8 L/minPHYSICIAN [facility]10-05-2025 22:06-0400Body ipqcml504.56 cmPHYSICIAN [facility]10-05-2025 22:06-0400Body yupoky09.64 kgPHYSICIAN [facility]10-02-2025 08:00-0400Body [degF]PHYSICIAN NO [facility]10-02-2025 08:00-0400 Diastolic blood rsbafbnx54 mm[Hg]PHYSICIAN NO [facility]10-02-2025 08:00-0400Heart rate80 /minPHYSICIAN NO [facility]10-02-2025 08:00-0400Respiratory rate16 /minPHYSICIAN [facility]10-02-2025 08:00-1305CvR4% (BldA) [Mass fraction]98 %PHYSICIAN NO [facility]10-02-2025 08:00-0400Systolic blood rsafzpic515 mm[Hg]PHYSICIAN NO [facility]10-01-2025 22:34-0400Body nasxsc995.56 cmPHYSICIAN [facility]10-01-2025 22:34-0400Body eadmyk77.91 kg PHYSICIAN [facility]09-08-2025 10:11-0400Body mjwaue297.56 cmPHYSICIAN [facility]09-08-2025 10:11-0400Body mass index (BMI) [Ratio]31.4 kg/g4LGGRYVZRP [facility]09-08-2025 10:11-0400Body zuzcrxseccx27.8 [degF]PHYSICIAN NO [facility]09-08-2025 10:11-0400Body fkcoby41.09 kgPHYSICIAN [facility]09-08-2025 10:11-0400 Diastolic blood eifynojd05 mm[Hg]PHYSICIAN NO [facility]09-08-2025 10:11-0400Heart rate85 /minPHYSICIAN [facility]09-08-2025 10:11-0400Respiratory rate18 /minPHYSICIAN [facility]09-08-2025 10:11-7602UsA6% (BldA) [Mass fraction]95 %PHYSICIAN NO [facility]09-08-2025 10:11-0400Systolic blood lzyhymcu989 mm[Hg]PHYSICIAN NO [facility]08-23-2025 14:22-0400Body gjihzr190.02 cmPHYSICIAN [facility]08-23-2025 14:22-0400Body mass index (BMI) [Ratio]47.5 kg/k9XDSTKBXCU NO [facility]08-23-2025 14:22-0400Body wdbgludvxyc34.1 [degF]PHYSICIAN NO [facility]08-23-2025 14:-0400Body fomvll485.56 kgPHYSICIAN [facility]08-23-2025 14:22-0400Diastolic blood aojfenqq24 mm[Hg]PHYSICIAN NO [facility]08-23-2025 14:22-0400 Heart rate90 /minPHYSICIAN [facility]08-23-2025 14:22-0400Respiratory rate18 /minPHYSICIAN [facility]08-23-2025 14:22-7299QzC2% (BldA) [Mass fraction]97 %PHYSICIAN NO [facility]08-23-2025 14:22-0400Systolic blood umtejrdl275 mm[Hg]PHYSICIAN NO [facility]08-08-2025 07:30-0400 Body cbkqetzsoeq42.9 [degF]PHYSICIAN NO [facility] 01-24-2025 07:30-0400Diastolic blood atgzrzpz66 mm[Hg]PHYSICIAN NO [facility]08-08-2025 07:30-0400Heart rate79 /minPHYSICIAN [facility]08-08-2025 07:30-0400Respiratory rate 18 /minPHYSICIAN [facility]08-08-2025 07:30-0400 SaO2% (BldA) [Mass fraction]98 %PHYSICIAN NO [facility]08-08-2025 07:30-0400Systolic blood opetlmkm462 mm[Hg]PHYSICIAN NO [facility]08-07-2025 12:03-0400Body vfnuhg836.02 cm PHYSICIAN NO [facility]08-06-2025 17:32-0400Body pqxipm54.55 kgPHYSICIAN [facility]08-06-2025 12:18-0400Body .02 cmPHYSICIAN NO [facility]08-06-2025 12:18-0400Body xiqfbrvbxcx13.7 [degF]PHYSICIAN NO [facility]08-06-2025 12:18-0400Body oknyka16 kgPHYSICIAN NO [facility]08-06-2025 12:18-0400Diastolic blood ojtcpgpx80 mm[Hg]PHYSICIAN NO [facility]08-06-2025 12:18-0400Heart rate82 /minPHYSICIAN NO [facility] 01-22-2025 12:18-0400Respiratory rate18 /minPHYSICIAN [facility]08-06-2025 12:18-6177JkZ2% (BldA) [Mass fraction]99 % PHYSICIAN NO [facility]08-06-2025 12:18-0400 Systolic blood xvylezsa153 mm[Hg]PHYSICIAN NO [facility]07-16-2025 07:30-0400Body gfoykqpwaud62.8 [degF]PHYSICIAN NO [facility]07-16-2025 07:30-0400Diastolic blood xnvwngop41 mm[Hg]PHYSICIAN NO [facility]07-16-2025 07:30-0400 Heart rate79 /minPHYSICIAN [facility]07-16-2025 07:30-0400Respiratory rate16 /minPHYSICIAN [facility]07-16-2025 07:30-4915EsP3% (BldA) [Mass fraction]98 %PHYSICIAN NO [facility]07-16-2025 07:30-0400Systolic blood dmhnycoy495 mm[Hg]PHYSICIAN NO [facility]07-15-2025 14:38-0400 Body uzpsbc581.02 cmPHYSICIAN [facility] 12-30-2024 08:14-0400Body kxsjil69.38 kgPHYSICIAN NO [facility]07-13-2025 20:51-0400Body .02 cmPHYSICIAN [facility]07-13-2025 20:51-0400Body afjwbmobppy21.4 [degF]PHYSICIAN NO [facility]07-13-2025 20:51-0400 Body oufqdz28.2 kgPHYSICIAN [facility]07-13-2025 20:51-0400Diastolic blood axsgqtcy54 mm[Hg]PHYSICIAN NO [facility]07-13-2025 20:51-0400Heart rate97 /minPHYSICIAN [facility]07-13-2025 20:51-0400Respiratory rate16 /min PHYSICIAN NO [facility]07-13-2025 20:51-4271IsM4% (BldA) [Mass fraction]96 %PHYSICIAN NO [facility] 12-29-2024 20:51-0400Systolic blood lwknkpje92 mm[Hg]PHYSICIAN NO [facility]06-20-2025 07:30-0400Body cvvfyzjfgux63.9 [degF]PHYSICIAN NO [facility]06-20-2025 07:30-0400 Diastolic blood hwimepfl17 mm[Hg]PHYSICIAN NO [facility]06-20-2025 07:30-0400Heart rate82 /minPHYSICIAN [facility]06-20-2025 07:30-0400Respiratory rate16 /minPHYSICIAN [facility]06-20-2025 07:30-4019OdV3% (BldA) [Mass fraction]100 %PHYSICIAN [facility]06-20-2025 07:30-0400Systolic blood mhbujyan130 mm[Hg]PHYSICIAN NO [facility]06-18-2025 13:39-0400Body ibqxno626.02 cmPHYSICIAN NO [facility]06-17-2025 23:01-0400Body .58 kg PHYSICIAN NO [facility]05-31-2025 07:30-0400Body qidznpjqitl21.7 [degF]PHYSICIAN NO [facility] 11-16-2024 07:30-0400Diastolic blood ytagrqqe24 mm[Hg]PHYSICIAN NO [facility]05-31-2025 07:30-0400Heart kwhk651 /min PHYSICIAN NO [facility]05-31-2025 07:30-0400 Respiratory rate15 /minPHYSICIAN [facility] 11-16-2024 07:30-8617SmF2% (BldA) [Mass fraction]99 %PHYSICIAN NO [facility]05-31-2025 07:30-0400Systolic blood tojnidhq511 mm[Hg]PHYSICIAN NO [facility]05-30-2025 14:56-0400 Body bpzmhe994.02 cmPHYSICIAN [facility] 11-15-2024 00:35-0400Body .1 kgPHYSICIAN [facility]05-29-2025 23:16-0400Diastolic blood bnaghuhk68 mm[Hg]PHYSICIAN NO [facility]05-29-2025 23:16-0400Heart rate68 /min PHYSICIAN NO [facility]05-29-2025 23:16-0400 Respiratory rate21 /minPHYSICIAN [facility] 11-14-2024 23:16-5785KaL3% (BldA) [Mass fraction]97 %PHYSICIAN NO [facility]05-29-2025 23:16-0400Systolic blood mm[Hg]PHYSICIAN NO [facility]05-29-2025 21:38-0400 Body hdkivy268.02 cmPHYSICIAN [facility] 11-14-2024 21:38-0400Body nugqydvesdc46.5 [degF]PHYSICIAN NO [facility]05-29-2025 21:38-0400Body zehshm53.1 kgPHYSICIAN [facility]05-25-2025 07:30-0400Body utjrmeupofw48.5 [degF]PHYSICIAN [facility]05-25-2025 07:30-0400 Diastolic blood lcrpgtsu34 mm[Hg]PHYSICIAN [facility]05-25-2025 07:30-0400Heart rate93 /minPHYSICIAN [facility]05-25-2025 07:30-0400Respiratory rate16 /minPHYSICIAN [facility]05-25-2025 07:30-4059KoS8% (BldA) [Mass fraction]99 %PHYSICIAN [facility]05-25-2025 07:30-0400Systolic blood zandpotk561 mm[Hg]PHYSICIAN [facility]05-22-2025 14:44-0400Body ozbwgt097.02 cmPHYSICIAN [facility]05-22-2025 03:45-0400Body .7 kg PHYSICIAN [facility]05-22-2025 01:45-0400Body ipsfslzpqwh30.6 [degF]PHYSICIAN [facility] 11-07-2024 01:45-0400Diastolic blood mm[Hg]PHYSICIAN [facility]05-22-2025 01:45-0400Heart rate64 /minPHYSICIAN [facility]05-22-2025 01:45-0400Respiratory rate 17 /minPHYSICIAN [facility]05-22-2025 01:45-0400 SaO2% (BldA) [Mass fraction]98 %PHYSICIAN [facility]05-22-2025 01:45-0400Systolic blood bjfufury115 mm[Hg]PHYSICIAN [facility]05-21-2025 21:23-0400Body qryhbz738.02 cm PHYSICIAN [facility]05-21-2025 21:23-0400Body lzoceh17.7 kgPHYSICIAN [facility]05-21-2025 15:52-0400Body mass index (BMI) [Ratio]23.76 kg/i1MfsouMichael Gurrola MD Work Phone: 1(070)[address] [place], [place] 8473005-21-2025 15:52-0400Body bsjxab95.77 kgMichael Gurrola MD Work Phone: 1(933)[address] [place], [place] 8473005-21-2025 15:52-0400Diastolic blood tuqednlv25 mm[Hg]Michael Gurrola MD Work Phone: 1(328)[address] [place], [place] 8473005-21-2025 15:52-0400Systolic blood ueisneka790 mm[Hg]Michael Gurrola MD Work Phone: 1(491)[address] [place], [place] 8473003-26-2025 13:23-0400Body mass index (BMI) [Ratio]24.75 kg/u5AybbcMichael Gurrola MD Work Phone: 1(739)[address] [place], [place] 8473003-26-2025 13:23-0400Body .49 kgMichael Gurrola MD Work Phone: 1(511)[address] [place], [place] 8473003-26-2025 13:23-0400Diastolic blood gdvllrbo24 mm[Hg]Michael Gurrola MD Work Phone: 1(407)[address] [place], [place] 8473003-26-2025 13:23-0400Systolic blood upzcsczg626 mm[Hg]Michael Gurrola MD Work Phone: 1(122)[address] [place], [place] 8473002-03-2025 12:36-0500Body [facility]ahd007.02 [facility] 12:36-0500Body mass index (BMI) [Ratio]19.5 kg/l3FwhlsysgjC[facility]02-03-2025 12:36-0500Body luelczwrlia95.9 [degF][facility]02-03-2025 12:36-0500Body fmelax29.12 [facility]-03-2025 12:36-0500Diastolic blood bfexvcol37 mm[Hg][facility]02-03-2025 12:36-0500 Heart rate76 /[facility]02-03-2025 12:36-0500 Respiratory rate17 /[facility]02-03-2025 12:36-0500 SaO2% (BldA) [Mass fraction]97 %[facility]02-03-2025 12:36-0500Systolic blood jvbryvca329 mm[Hg][facility] 07-10-2024 14:08-0500Body mass index (BMI) [Ratio]25.56 kg/r7OqrkqMichael Gurrola MD Work Phone: [facility]Mehvwecrgu74[facility]69-4323 14:08-0500Body cfnpni50.76 kgMichael Gurrola MD Work Phone: [facility] CenterXwsazlbzbr57-89-4361 14:08-0500Diastolic blood fvbkaonw04 mm[Hg]Michael Gurrola MD Work Phone: [facility] CenterBdyvevcraf36-31-3912 14:08-0500Systolic blood vtunksdx589 mm[Hg]Michael Gurrola MD Work Phone: [facility] CenterJktvfbrkyd12-17-8276 07:32-0400Body temperature 97.39 [degF]Cristiano Singh MD Work Phone: [facility]10-29-2024 07:32-0400Diastolic blood otftoazr79 mm[Hg]Cristiano Singh MD Work Phone: [facility]woodTlfcnb61-08-1244 07:32-0400Heart rate67 /minCristiano Singh MD Work Phone: [facility]10-29-2024 07:32-0400 Respiratory rate16 /minCristiano Singh MD Work Phone: [facility]10-29-2024 07:32-4671ZaU9% (BldA) [Mass fraction]100 %Cristiano Singh MD Work Phone: [facility]10-29-2024 07:32-0400Systolic blood uvbcjxke716 mm[Hg]Cristiano Singh MD Work Phone: [facility]10-29-2024 03:28-0400Body mass index (BMI) [Ratio]28.27 kg/y2VsdmgyCristiano Singh MD Work Phone: [facility]10-29-2024 03:28-0400Body laqima95.4 kgCristiano Singh MD Work Phone: [facility]10-24-2024 06:20-0400Body lcpqxa899 cmRoberalesia Singh MD Work Phone: [facility]10-22-2024 10:44-0400Diastolic blood oihzgenn14 mm[Hg]Tyrone Benito DO Work Phone: [facility]10-22-2024 10:44-0400Systolic blood cidyjjkx069 mm[Hg]Tyrone Benito DO Work Phone: [facility]10-22-2024 10:42-0400Body mass index (BMI) [Ratio]27.1 kg/g2IcidednmhTyrone Benito DO Work Phone: [facility]10-22-2024 10:42-0400Body susbhqxvtbq44.01 [degF]Tyrone Benito DO Work Phone: [facility]10-22-2024 10:42-0400Body odmqwz94.4 kgCathrynyanique Benito DO Work Phone: [facility]10-22-2024 10:42-0400Heart rate92 /minChyanique Benito DO Work Phone: [facility]10-22-2024 10:42-0400 Respiratory rate16 /minChyanique Benito DO Work Phone: [facility]10-22-2024 10:42-0296HsO2% (BldA) [Mass fraction]100 %Tyrone Benito DO Work Phone: [facility]10-15-2024 14:15-0400Diastolic blood kagoauti29 mm[Hg]Tyrone Benito DO Work Phone: [facility]10-15-2024 14:15-8096OuA5% (BldA) [Mass fraction]99 %Tyrone Benito DO Work Phone: [facility]10-15-2024 14:15-0400Systolic blood mlaxscvh894 mm[Hg]Tyrone Benito DO Work Phone: [facility]10-15-2024 13:30-0400Heart rate51 /Nuno Benito DO Work Phone: [facility]10-15-2024 13:30-0400 Respiratory rate16 /minChyanique Benito DO Work Phone: [facility]10-15-2024 09:13-0400Body mass index (BMI) [Ratio]27.28 kg/h9NcuzqgjrrTyrone Benito DO Work Phone: [facility]10-15-2024 09:13-0400Body ejulvmghsct90.9 [degF]Tyrone Benito DO Work Phone: [facility]10-15-2024 09:13-0400Body bexoty08.85 kgTyrone Benito DO Work Phone: [facility]09-29-2024 12:14-0400Diastolic blood osoathzy99 mm[Hg]Prudence Wong MD Work Phone: [facility] [place]09-29-2024 12:14-5764OfH0% (BldA) [Mass fraction]100 %Prudence Wong MD Work Phone: [facility] [place]09-29-2024 12:14-0400Systolic blood mhzropil498 mm[Hg]Prudence Wong MD Work Phone: [facility] [place]09-29-2024 10:10-0400Body lhunsynkkhq80.1 [degF]Prudence Wong MD Work Phone: [facility]09-29-2024 10:10-0400Heart ahog349 /Pat Wong MD Work Phone: [facility]09-29-2024 10:10-0400 Respiratory rate16 /Pat Wong MD Work Phone: [facility]08-29-2024 14:26-0400Body [facility]08-29-2024 14:26-0400Body mass index (BMI) [Ratio]28.54 kg/m2[facility]08-29-2024 14:26-0400Body .07 kg[facility]08-29-2024 14:26-0400Diastolic blood jdogohqo58 mm[Hg][facility] 02-15-2024 14:26-0400Systolic blood jlijlqtr930 mm[Hg][facility]08-21-2024 15:50-0400Diastolic blood embnzdmg00 mm[Hg]Meldia Huang APRN - IMPRESS ASSOCIATE Work Phone: [facility]08-21-2024 15:50-0400Heart rate64 /minMelida Huang 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 - IMPRESS ASSOCIATE Work Phone: [facility]08-21-2024 15:50-5755QhV0% (BldA) [Mass fraction]98 %Melida Huang 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 - IMPRESS ASSOCIATE Work Phone: [facility]08-21-2024 15:50-0400Systolic blood lcrrgxek444 mm[Hg]Melida Huang APRN - IMPRESS ASSOCIATE Work Phone: [facility]08-21-2024 10:55-0400Body envybj571 cmMelida Huang 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 - IMPRESS ASSOCIATE Work Phone: [facility]08-21-2024 10:55-0400Body mass index (BMI) [Ratio]28.34 kg/j0AdftqqMelida Huang APRN - IMPRESS ASSOCIATE Work Phone: [facility] [id number] 10:55-0400Body lxaojksyxmy43.71 [degF]Melida Huang 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[facility] Work Phone: [facility] [employer] [id number] 10:55-0400Body dskeep73.58 kgMelida Huang [facility] Work Phone: [facility]ENTERmyAchy [facility] [id number] 10:55-0400 Respiratory rate16 /minMelida Huang 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 - [facility] Work Phone: [facility] [employer] [facility] [id number] 20:38-0400Body ahkafj854 cmJaveria Daigle DO Work Phone: [facility] [employer] [email or web address].[id number] 20:38-0400Body mass index (BMI) [Ratio]28.7 kg/l4Brlpjfw Daigle DO Work Phone: [facility] [place]08-17-2024 20:38-0400Body tvcybeljuol51.1 [degF]Jess Daigle DO Work Phone: [facility] [place]08-17-2024 20:38-0400Body pphwmo33.48 kgJaveria Daigle DO Work Phone: [facility] [place]08-17-2024 20:38-0400Diastolic blood fnsnhlyv17 mm[Hg]Jess Daigle DO Work Phone: [facility] [place]08-17-2024 20:38-0400Heart rate84 /minJaveria Daigle DO Work Phone: [facility] [place]08-17-2024 20:38-0400 Respiratory rate16 /minJaveria Daigle DO Work Phone: [facility] [place]08-17-2024 20:38-1804FlP3% (BldA) [Mass fraction]99 %Jess Daigle DO Work Phone: [facility]08-17-2024 20:38-0400Systolic blood ublonucv450 mm[Hg]Jess Daigle DO Work Phone: [facility]08-05-2024 14:41-0400Body mass index (BMI) [Ratio]28.86 kg/m[address]08-05-2024 14:41-0400Body bdityjfkzph94.71 [degF][address]08-05-2024 14:41-0400Body .[address]08-05-2024 14:41-0400 Diastolic blood sjkgalvb54 mm[Hg][address]08-05-2024 14:41-0400Systolic blood mm[Hg][address] 01-08-2024 14:52-0400Heart rate88 /minPHYSICIAN [facility]07-22-2024 14:52-0400Respiratory rate16 /minPHYSICIAN [facility]07-22-2024 14:52-6088CmS1% (BldA) [Mass fraction]97 %PHYSICIAN [facility]07-22-2024 12:38-0400Body .02 cmPHYSICIAN [facility]07-22-2024 12:38-0400Body tabanwbpujz01.8 [degF]PHYSICIAN [facility]07-22-2024 12:38-0400Body kgPHYSICIAN [facility]07-22-2024 12:38-0400Diastolic blood vsylgtdc36 mm[Hg]PHYSICIAN [facility]07-22-2024 12:38-0400Systolic blood jrzdmxer655 mm[Hg]PHYSICIAN [facility]06-03-2024 16:30-0400Diastolic blood zlxwgpuw98 mm[Hg]Mickie Radha Abhinav DO Work Phone: [facility]06-03-2024 16:30-0400Heart rate64 /minMickie La DO Work Phone: [facility] [id number] 16:30-0400 Respiratory rate20 /minMickie Hallg DO Work Phone: [facility] ZEPSYR45-03-1137 16:30-6333FvL0% (BldA) [Mass fraction]99 %Mickie La DO Work Phone: [facility]Am[facility] [id number] 16:30-0400Systolic blood jjqcaepm690 mm[Hg]Mickie La DO Work Phone: [facility]DN[facility]Am[facility] OXNQPK73-10-8000 11:58-0400Body uxjhodgogsn56.2 [degF]Mickie La DO Work Phone: [facility]DN[facility]igenAm[facility] PXUSHO17-21-2278 11:46-0400Body rmawxr298 cmCarmen Radha La DO Work Phone: [facility] HBPYTF36-14-1407 11:46-0400Body mass index (BMI) [Ratio]30.01 kg/x8UhrrrsMickie La DO Work Phone: [facility]ALDNvigenAm[facility] [id number] 11:46-0400Body traecl26.84 kgMickie La DO Work Phone: [facility]02-27-2024 20:57-0500Heart rate90 /minJustin Andes DO Work Phone: [facility]02-27-2024 20:57-0500 Respiratory rate18 /minJustin Andes DO Work Phone: [facility] [place]02-27-2024 20:57-4441InK2% (BldA) [Mass fraction]97 %Sage Andes DO Work Phone: [facility] [place]02-27-2024 20:42-0500Diastolic blood odzvvsko15 mm[Hg]Sage Andes DO Work Phone: [facility] [place]02-27-2024 20:42-0500Systolic blood nlwgrtot839 mm[Hg]Sage Andes DO Work Phone: [facility] [place]02-27-2024 19:40-0500Body jckuvq910 cmJustin Andes DO Work Phone: [facility] [place]02-27-2024 19:40-0500Body mass index (BMI) [Ratio]30.11 kg/e4Rijngv Andes DO Work Phone: [facility] [place]02-27-2024 19:40-0500Body cmkixsawcoc03.91 [degF]Sage Andes DO Work Phone: [facility] [place]02-27-2024 19:40-0500Body wtemtr62.11 kgJustin Andes DO Work Phone: [facility] [place]02-06-2024 10:50-0500Diastolic blood mm[Hg]Kisha Rangel MD Work Phone: [facility] [place]02-06-2024 10:50-0500Heart rate96 /Gillian Rangel MD Work Phone: [facility] [place]02-06-2024 10:50-0500 Respiratory rate18 /minKisha Rangel MD Work Phone: [facility] [place]02-06-2024 10:50-4750MnA8% (BldA) [Mass fraction]97 %Kisha Rangel MD Work Phone: [facility] [place]02-06-2024 10:50-0500Systolic blood xcrhfdao999 mm[Hg]Kisha Rangel MD Work Phone: [facility] [place]02-06-2024 09:45-0500Body kqwnwegxbso43.01 [degF]Kisha Rangel MD Work Phone: [facility]02-06-2024 08:21-0500Body cmVnikko Rangel MD Work Phone: [facility]02-06-2024 08:21-0500Body mass index (BMI) [Ratio]33.55 kg/o5BovhibKisha Rangel MD Work Phone: [facility]02-06-2024 08:21-0500Body .91 kgKisha Rangel MD Work Phone: [facility]09-11-2023 08:45-0400Body cmlkprdksoc62.2 [degF]PHYSICIAN [facility] 02-27-2023 08:45-0400Diastolic blood dqzzpvyd73 mm[Hg]PHYSICIAN [facility]09-11-2023 08:45-0400Heart rate75 /minPHYSICIAN [facility]09-11-2023 08:45-0400Respiratory rate 18 /minPHYSICIAN [facility]09-11-2023 08:45-0400 SaO2% (BldA) [Mass fraction]98 %PHYSICIAN NO [facility]09-11-2023 08:45-0400Systolic blood cqtahpvr626 mm[Hg]PHYSICIAN [facility]09-10-2023 20:35-0400Body tqtonb34.98 kg PHYSICIAN [facility]09-10-2023 17:40-0400Body jxiadd982.02 cmPHYSICIAN [facility]09-09-2023 18:28-0400Respiratory rate18 /minPHYSICIAN [facility]09-09-2023 18:20-0400Diastolic blood bsbvarww34 mm[Hg]PHYSICIAN NO [facility]09-09-2023 18:20-0400Heart rate82 /minPHYSICIAN [facility]09-09-2023 18:20-0400Systolic blood oxikrphu43 mm[Hg]PHYSICIAN NO [facility]09-09-2023 16:00-0400Body ofmvqf436.02 cmPHYSICIAN [facility]09-09-2023 16:00-0400Body yikanqjecop15.4 [degF]PHYSICIAN [facility]09-09-2023 16:00-0400Body aehyfg65.98 kg PHYSICIAN NO [facility]09-06-2023 17:00-0400 Respiratory rate20 /minPHYSICIAN [facility] 02-22-2023 15:30-9899IhI0% (BldA) [Mass fraction]98 %PHYSICIAN NO [facility]09-06-2023 15:06-0400Body .02 cm PHYSICIAN [facility]09-06-2023 15:06-0400Body .98 kgPHYSICIAN [facility]09-06-2023 14:44-0400Body vmmknbumnmf46.7 [degF]PHYSICIAN NO [facility]09-06-2023 14:42-0400Diastolic blood otesbyzj59 mm[Hg]PHYSICIAN NO [facility]09-06-2023 14:42-0400Heart udhq989 /min PHYSICIAN [facility]09-06-2023 14:42-0400 Systolic blood pvhjkesa218 mm[Hg]PHYSICIAN [facility]09-03-2023 14:04-0400Respiratory rate18 /minPHYSICIAN [facility]09-03-2023 12:16-0400Body florppbkdpw81.2 [degF]PHYSICIAN NO [facility]09-03-2023 11:36-8715FxM1% (BldA) [Mass fraction]97 %PHYSICIAN NO [facility] 02-19-2023 11:31-0400Body xlaawq438.02 cmPHYSICIAN [facility]09-03-2023 11:31-0400Body dwiouf23.98 kgPHYSICIAN [facility]09-03-2023 11:28-0400Diastolic blood mvyajssl10 mm[Hg]PHYSICIAN NO [facility]09-03-2023 11:28-0400 Heart gtib312 /minPHYSICIAN [facility]09-03-2023 11:28-0400Systolic blood ankogvaf949 mm[Hg]PHYSICIAN NO [facility]09-01-2023 19:23-0400Respiratory rate16 /minPHYSICIAN NO [facility]09-01-2023 18:02-0400Diastolic blood qgspyocw21 mm[Hg]PHYSICIAN NO [facility]09-01-2023 18:02-0400Heart rate99 /minPHYSICIAN [facility] 02-17-2023 18:02-0400Systolic blood wvxwbbeo720 mm[Hg]PHYSICIAN NO [facility]09-01-2023 17:58-0400Body agginj761.02 cm PHYSICIAN NO [facility]09-01-2023 17:58-0400Body .98 kgPHYSICIAN [facility]08-22-2023 17:30-0400Respiratory rate16 /minPHYSICIAN [facility]08-22-2023 16:28-7757FgC4% (BldA) [Mass fraction]97 %PHYSICIAN NO [facility]08-22-2023 16:25-0400Body .02 cm PHYSICIAN NO [facility]08-22-2023 16:25-0400Body fsvakc31.98 kgPHYSICIAN [facility]08-22-2023 16:23-0400Body [degF]PHYSICIAN NO [facility]08-22-2023 16:23-0400Diastolic blood dpxsuvcz62 mm[Hg]PHYSICIAN NO [facility]08-22-2023 16:23-0400Heart rate94 /minPHYSICIAN [facility]08-22-2023 16:23-0400Systolic blood icjtyepj836 mm[Hg]PHYSICIAN NO [facility]08-10-2023 23:47-0400Respiratory rate16 /minPHYSICIAN NO [facility] [id number] 22:37-0400Body .02 cmPHYSICIAN [facility]08-10-2023 22:37-0400Body hlhohp29.44 kgPHYSICIAN [facility]08-10-2023 22:37-0400Diastolic blood vqcngall34 mm[Hg]PHYSICIAN NO [facility]08-10-2023 22:37-0400Heart rate91 /minPHYSICIAN [facility] 01-26-2023 22:37-0400Systolic blood zvpbglaa754 mm[Hg]PHYSICIAN NO [facility]08-10-2023 22:36-1634VjW5% (BldA) [Mass fraction]97 %PHYSICIAN [facility]08-10-2023 22:35-0400Body nghysbshkow12.8 [degF]PHYSICIAN [facility]08-08-2023 16:44-0400Respiratory rate16 /minPHYSICIAN [facility]08-08-2023 16:19-0400Body zxtsbvnhirw84.5 [degF]PHYSICIAN [facility]08-08-2023 16:19-0400 Diastolic blood clhxgojj84 mm[Hg]PHYSICIAN [facility]08-08-2023 16:19-0400Heart rate95 /minPHYSICIAN [facility]08-08-2023 16:19-9897QfZ9% (BldA) [Mass fraction]98 % PHYSICIAN [facility]08-08-2023 16:19-0400 Systolic blood tvwlyfjs66 mm[Hg]PHYSICIAN [facility]08-08-2023 15:36-0400Body cydmmh138.02 cmPHYSICIAN [facility]08-08-2023 15:36-0400Body bzexoa70.44 kgPHYSICIAN [facility]07-29-2023 13:12-0400Diastolic blood cyucnrvd19 mm[Hg]PHYSICIAN NO [facility]07-29-2023 13:120400Heart rate82 /minPHYSICIAN NO [facility] 01-14-2023 13:120400Respiratory rate16 /minPHYSICIAN [facility]07-29-2023 13:120400Systolic blood xusgxhtk971 mm[Hg] PHYSICIAN NO [facility]07-29-2023 10:17-0400Body nfujmn556.02 cmPHYSICIAN NO [facility]07-29-2023 10:17-0400Body ppcasi87.53 kgPHYSICIAN [facility]07-29-2023 10:15-0400Body zkfvacpdqwi70.2 [degF]PHYSICIAN NO [facility]07-29-2023 10:15-4168YjF9% (BldA) [Mass fraction]99 %PHYSICIAN NO [facility]06-22-2023 13:30-0400Respiratory rate16 /minPHYSICIAN [facility]06-22-2023 13:24-0400Diastolic blood eufisokb85 mm[Hg]PHYSICIAN NO [facility]06-22-2023 13:24-0400Heart rate85 /minPHYSICIAN NO [facility]06-22-2023 13:24-0400Systolic blood qpxqmjpy455 mm[Hg]PHYSICIAN NO [facility]06-22-2023 11:21-0400Body deayru782.4 cmPHYSICIAN NO [facility]06-22-2023 11:21-0400Body fgunpz45.07 kgPHYSICIAN [facility]06-22-2023 11:09-0400Body dmaavaymbdm07.3 [degF]PHYSICIAN NO [facility]06-04-2023 14:48-0400Body temperature 97.5 [degF]PHYSICIAN NO [facility]06-04-2023 14:48-0400Diastolic blood wlvmouju84 mm[Hg]PHYSICIAN NO [facility]06-04-2023 14:48-0400Heart rate85 /minPHYSICIAN [facility]06-04-2023 14:48-0400Respiratory rate16 /min PHYSICIAN [facility]06-04-2023 14:48-1529IjI6% (BldA) [Mass fraction]98 %PHYSICIAN NO [facility] 11-20-2022 14:48-0400Systolic blood txdiduzf689 mm[Hg]PHYSICIAN NO [facility]06-04-2023 12:40-0400Body wijhas922.1 cm PHYSICIAN [facility]06-04-2023 12:40-0400Body gtwiyp35.71 kgPHYSICIAN [facility]05-18-2023 11:30-0400Respiratory rate18 /minPHYSICIAN [facility]05-18-2023 09:54-0400Diastolic blood tilwlzlq99 mm[Hg]PHYSICIAN NO [facility]05-18-2023 09:54-0400Heart rate83 /minPHYSICIAN [facility]05-18-2023 09:54-0400Systolic blood mdnlqouf372 mm[Hg]PHYSICIAN NO [facility]05-18-2023 09:51-1147RbH1% (BldA) [Mass fraction]98 %PHYSICIAN [facility]05-18-2023 09:35-0400Body qgtkmwzgzuk65.7 [degF]PHYSICIAN [facility]05-18-2023 09:25-0400Body oywqom692.4 cm PHYSICIAN [facility]05-18-2023 09:25-0400Body .44 kgPHYSICIAN [facility]11-08-2022 10:45-0500Body utjasd308.56 Elida Thomas Other [employer] Other 11-08-2022 10:45-0500Body mass index (BMI) [Ratio] 34.84 kg/l1XhfqpjmDenzel Thomas Other [employer] Other 11-08-2022 10:45-0500Body .08 kgCamsheldon Thomas Other [employer] Other 11-08-2022 10:45-0500Diastolic blood mhgpniby77 mm[Hg] Denzel Thomas Other [employer] Other 11-08-2022 10:45-0500Systolic blood nevshjzx752 mm[Hg] Denzel Thomas Other [employer] Other Encounters Encounter DateEncounter TypeCare ProviderFacilityStart: 04-21-2025 End: 66-92-8339bittfdbtkhDSWIBTTQH NO [facility] ClydeStart: 04-21-2025 End: 53-69-8708Tnlugov encounter procedurePatricfortunato Nolna 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-[facility] Work Phone: Start: 04-15-2025 End: 21-36-8223Utfpxv Massimo Gurrola MD Work Phone: noMS Abhi OBGYNStart: 04-15-2025 End: 13-18-9583Bepbvv Massimo Gurrola MD Work Phone: noMS Abhi OBGYNStart: 04-15-2025 End: 25-45-2396Ksidtt follow up visit related to original Jose Enrique Gurrola MD Work Phone: noMS Abhi OBGYNComment on above:Surgery follow-up (Primary Dx); Pelvic peritoneal adhesions, female; Right ovarian cyst; RLQ abdominal pain; Other urinary incontinence; Menopausal symptomsStart: 04-15-2025 End: 68-44-8070tupishoyvxZSSDZ J PRINTYNot AvailableStart: 04-04-2025 End: 05-85-4793Uuysvkjlg department patient visitPHYSICIAN NO [facility] Work Phone: Start: 03-26-2025 End: 94-94-2390Akaimxfvv department patient visitPHYSICIAN NO [facility] Room Work Phone: Start: 03-25-2025 End: 10-82-9624Jnkmgvnz Result EncounterMichael Gurrola MD Work Phone: noms External Department UnsolicitedStart: 03-25-2025 End: 32-32-0749Qpcnpbmd Result EncounterMichael Gurrola MD Work Phone: noms External Department UnsolicitedStart: 03-23-2025 End: 43-00-9131Avifylnluz and management of inpatientMICHAEL GURROLA MD-[address] [place] Work Phone: Start: 03-19-2025 End: 06-03-1801Kcpptylxos and management of inpatientMICHAEL GURROLA MD-3 [facility] Work Phone: Start: 26-91-8643Wpgceeofnj Siri VERONICA CredibleStart: 87-42-6916Fskwgkpnfd RecurringKit VERONICA CredibleStart: 02-24-2025 End: 42-41-1322dvbejfktjuJZTKLJVWX NO [facility] Work Phone: Start: 02-24-2025 End: 50-70-4953Njvbvsz encounter procedureFe Isabel 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-[facility] Work Phone: Start: 58-04-3196Uukresmlwd Siri VERONICA CredibleStart: 02-08-2025 End: 95-72-3642Fdraqhlt ReferredFe Isabel 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-Lab Urgent Care 250Start: 02-08-2025 End: 84-66-6777enhwezrokaGOZWZTSGR NO [facility] Work Phone: Start: 02-08-2025 End: 45-42-2263Spxleuc encounter procedureAmanarnoldo Motab M 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-[facility] Work Phone: Start: 16-00-3700Ozkyxwvopz Siri HER CredibleStart: 01-22-2025 End: 31-88-4092Xydqafrocn and management of inpatientAdebrandenmi Josh CLEARY-Bozena [facility] Work Phone: Start: 28-42-3136Ykz-patient / Non-visitAdefederico Moreno MD-[facility] Work Phone: Start: 60-67-2257Muontdiavd RecurringKit VERONICA CredibleStart: 12-29-2024 End: 75-62-3357Xcbxmqmros and management of inpatientKit Gutierrez MD-[address] [place] [address] Work Phone: Start: 61-33-0612Hjo-patient / Non-visitKit Gutierrez MDAd[facility] Work Phone: Start: 12-03-2024 End: 14-88-6355Ajtchlhuhu and management of inpatientKit Gutierrez [facility]: 05-41-0105Rba-patient / Non-visitKit Gutierrez MDAd[facility] Work Phone: Start: 11-23-2024 End: 51-42-1487qgswesiodwIJRCVCJLF [facility] Work Phone: Start: 11-23-2024 End: 92-25-2001Vyzntkur ReferredPHYSICIAN [facility]-LAB Path Spec Maddy HospStart: 65-72-0231Ohd-patient / Non-visitPHYSICIAN NO [facility] Work Phone: Start: 11-14-2024 End: 42-31-9350Drrhjfphjf and management of inpatientPHYSICIAN NO [facility]-1 [facility] Work Phone: Start: 44-74-3297Rlh-patient / Non-visitPHYSICIAN NO [facility]Ad[facility] Work Phone: Start: 11-07-2024 End: 97-90-6013Rmqrpitkcq and management of inpatientPHYSICIAN NO [facility]-1 [facility] Work Phone: Start: 11-06-2024 End: 42-10-6444Puhurv outpatient visit 25 minutesMichael Gurrola MD Work Phone: noms [facility] OBComment on above:Severe episode of recurrent major depressive disorder, without psychotic features (HCC) (CMS/HCC) (Primary Dx)Start: 11-06-2024 End: 47-98-6085ohzarfuxvlQDXHL J PRINTYNot AvailableStart: 11-06-2024 End: 30-64-6981Myiguw Massimo Gurrola MD Work Phone: noms [facility] OBStart: 11-06-2024 End: 78-59-1648Yvdmeh Massimo Gurrola MD Work Phone: NOMS [facility] OBStart: 09-17-2024 End: 25-03-3804Qifrtw Massimo Gurrola MD Work Phone: NOMS [facility] OBStart: 09-17-2024 End: 99-30-3750Csggti Massimo Gurrola MD Work Phone: noms [facility] OBStart: 09-17-2024 End: 12-48-7164dqqnozuqbpISHTL J PRINTYNot AvailableStart: 09-17-2024 End: 29-56-0839Hygeohi encounter procedureMichael Gurrola MD Work Phone: noms [facility] OBComment on above:Abdominal pain in female (Primary Dx); Pelvic pain in femaleStart: 09-16-2024 End: 10-34-1360Jsndhzcjy department patient visitNO PCP NO PCPProMedica Mountain Community Medical Servicestart: 09-12-2024 End: 85-39-4358oibggzoakfDOHLH J PRINTYNot AvailableStart: 09-12-2024 End: 21-67-1123Dkhsnrh encounter procedureMichael Gurrola MD Work Phone: NODH SWS OBComment on above:Abdominal pain in female (Primary Dx)Start: 09-11-2024 End: 72-53-6502Zzgrcb Massimo Gurrola MD Work Phone: NOMS SWS OBStart: 09-11-2024 End: 92-39-6151Bwagri Massimo Gurrola MD Work Phone: NOMS SWS OBStart: 09-11-2024 End: 62-86-4999Agscuy outpatient visit 25 minutesMichael Gurrola MD Work Phone: NOMS SWS OBComment on above:Abdominal pain in female (Primary Dx)Start: 09-11-2024 End: 97-91-3560oejyfirhujODOCC J PRINTYNot AvailableStart: 07-30-2024 End: 73-18-1167Qwjodlsig encounterMichael Gurrola MD Work Phone: NOMS SWS OBStart: 07-22-2024 End: 54-04-6210ziufthheifCpfksbpsfMercy Health St. [facility] Work Phone: Start: 07-22-2024 End: 37-40-8988Cuchksj encounter procedureO[facility] Work Phone: Start: 07-10-2024 End: 03-92-5149Pxzxtp outpatient visit 25 minutesMichael Gurrola MD Work Phone: noms SWS OBComment on above:Right lower quadrant pain (Primary Dx); Pelvic pain in female; Right ovarian cystStart: 07-10-2024 End: 23-09-6354Glgtku Massimo Gurrola MD Work Phone: noMS SWS OBStart: 07-10-2024 End: 92-64-3251Vnoplg Massimo Gurrola MD Work Phone: NOMS SWS OBStart: 07-10-2024 End: 97-06-2415yxxhnihfwkCRZQA J PRINTYNot AvailableStart: 04-10-2024 End: 61-77-7055Fcdkzsbxev and management of inpatientRobert Juan Ramon Singh MD Work Phone: mthz [facility] MED SURGComment on above:Pneumoperitoneum (Primary Dx); Perforated diverticulum; Peritoneal cavity free airStart: 04-09-2024 End: 04-20-6522Rcnshjowp department patient visitChnerissawellersburg Joel Benito DO Work Phone: [facility] EDComment on above:Right ovarian cyst (Primary Dx)Start: 04-02-2024 End: 79-66-8369Lcbzcknho department patient visitChyanique Benito DO Work Phone: [facility] EDComment on above:Right ovarian cyst (Primary Dx)Start: 03-17-2024 End: 99-63-1158Dunhbduhq department patient visitPrudence Wong MD Work Phone: [facility] EDStart: 03-10-2024 End: 85-37-7170Udcjzdfhl department patient visitJUDHILARY [facility] Hospitaltart: 02-15-2024 End: 67-51-6717Lfoqnp outpatient visit 15 minutesChs [facility] Rug Drying Machine Operator Resident Center [facility] Services - Women's ServicesComment on above:Pelvic pain (Primary Dx); Routine general medical examination at a health care facilityStart: 02-15-2024 End: 40-89-8352Ciwyscj encounter statusChs [facility] Work Phone: start: 02-07-2024 End: 12-82-6129Hbyqllglp department patient visitTREY OLGANGMEISTERProMedica Hewitt HospitalStart: 02-07-2024 End: 75-22-1616Vwfmnobzg department patient visitNO PCP NO PCPProMedica Hewitt HospitalStart: 02-07-2024 End: 83-50-0499Lzesfnkrs department patient visitJUDITH Katharine COUNT INCLUDES THE [facility]IL[facility] HOSPITALKARENAshtabula [facility] EDComment on above:Abdominal pain, right lower quadrant (Primary Dx); Pelvic painStart: 02-06-2024 End: 25-28-1741wpcyqenqkfHTYKHK [facility] HospitalStart: 02-06-2024 End: 94-10-9639Clgpkfbjwl hospital visit by physicianMelida Perdue CNP Work Phone: mthz LaboratoryComment on above:Pelvic painStart: 02-05-2024 End: 77-16-1089Fvigdfpho department patient visitADAMaame COWANMetrohealth Main Campus Medical Centeradri [facility] HospitalStart: 02-03-2024 End: 67-75-6252Cfkvqjfnh department patient visitJamarcus Daigle DO Work Phone: [facility] EDComment on above:Right ovarian cyst (Primary Dx)Start: 01-22-2024 End: 17-43-5549Uzyygz outpatient new 30 minutesChs [facility] Resident 4yr [place] for [facility] Services - Women's ServicesComment on above:Pelvic abscess in female (Primary Dx); Change or removal of drainsStart: 01-22-2024 End: 77-90-0403esuvbvbcbdPSCLYF A SCHUESSLERProMedica Hewitt HospitalStart: 01-19-2024 End: 84-99-3474Qrxilcyuv encounterCenter For Health Services - Women's Services Work Phone: [facility] Services - Women's ServicesStart: 01-15-2024 End: 00-63-3365bvfkzgooasDUZUYY Katharine SCHUESSLERProMedica Hewitt HospitalStart: 01-14-2024 End: 50-83-3708Sgkwnfcrw encounterGeorgette ReynoldsProMedica Call CenterComment on above:Pain; Weakness - GeneralizedStart: 41-51-4518sghomjsmxwWASOUY A SCHUESSLERProMedica Hospital Ambulatory PPGStart: 01-13-2024 End: 80-93-2027Vdmjmcfkvm and management of inpatientJUDITH A REINA [facility] HospitalStart: 28-55-3224Eoyflbxuv department patient visit [facility]tart: 01-13-2024 End: 87-55-9884Ukknjezpf encounterDolorpete NewmanProMedica Call CenterComment on above:Medication RequestStart: 01-13-2024 End: 03-98-8939Ggngfyoyi department patient visitBEJACINTA [facility] Hospitaltart: 01-08-2024 End: 83-02-7675Ngkiexijx department patient visitPHYSICINABIL MIHAI [facility] Work Phone: Start: 01-04-2024 End: 34-20-2031Joiatukzg encounterPatricfortunato Hill[facility] Women[facility] Services Start: 12-18-2023 End: 05-99-6330Prycwdlfb department patient visitNone ProviderFacility:[facility] Hospitaltart: 11-28-2023 End: 90-56-5796qvbukbdcdpMQTEJVNeptali Carson [facility]cticuttart: 11-26-2023 End: 08-63-7777Ftetxorxe department patient visitSHEREEN Mcqueen [facility]uttart: 11-20-2023 End: 23-56-7582xnllgeygpmFXXWOUNeptali Carson [facility]uttart: 11-20-2023 End: 25-09-5856Akqwgstcni hospital visit by Jorge Alberto La DO Work Phone: mt ORComment on above:Postoperative pain (Primary Dx); Menorrhagia with regular cycle; Pelvic pain; Adenomyosis; Pelvic congestion syndromeStart: 10-18-2023 End: 75-73-1017utjvggjxneSzzrwcasb OrtizFacility:[facility] Hospitaltart: 08-15-2023 End: 36-79-7203Hnpirubxj department patient visitJustmayo Funes DO Work Phone: [facility] EDComment on above:Viral upper respiratory tract infection (Primary Dx)Start: 07-25-2023 End: 43-48-7124wgyvnuaadbIVUTAZ Katharine Jaredadri Miguelard HospitalStart: 07-25-2023 End: 26-20-5978Nlvndpemjl hospital visit by Doreen Rangel MD Work Phone: mwhz EndoscopyComment on above:Chronic GERD; Diarrhea, unspecified type; Gas painStart: 06-09-2023 End: 81-08-0431Tsjokpwrb department patient visitNone ProviderFacility:[facility] HospitalStart: 06-04-2023 End: 82-86-3034giwzidvsyaDnnk ProviderFacility:[facility] HospitalStart: 05-05-2023 End: 24-03-8044bsmcozfmbpXUDYMWWBL NO [facility] [place] [facility] Work Phone: Start: 05-05-2023 End: 20-83-5572Ydjbjvnm ReferredPHYSICIAN NO [facility] [place] [facility]-Lab [place] Work Phone: Start: 04-15-2023 End: 30-61-1184Zotcwglbr department patient visitNone ProviderFacility:[facility] Hospitaltart: 02-26-2023 End: 49-88-8660Hvtedypljy and management of inpatientPHYSICIAN NO [facility] [place] Work Phone: Start: 02-25-2023 End: 82-39-6830vqpccrpdizNDSFOIAOT NO [facility] [place] [facility] Work Phone: Start: 02-25-2023 End: 67-17-1475Nkjgjko encounter procedurePHYSICIAN NO [facility] [place] [facility]-3 [facility] Labor - O/PStart: 02-22-2023 End: 76-75-0825grspistbcyLMOOEHKAX NO [facility] [place] [facility] Work Phone: Start: 02-22-2023 End: 44-89-0693Wvscqcj encounter procedurePHYSICIAN NO [facility] [place] [facility]-3 [facility] Labor - O/PStart: 02-19-2023 End: 26-59-5541ywxvkaooejCPAPMGNZP NO [facility] Work Phone: Start: 02-19-2023 End: 50-48-0408Gyhlqoo encounter procedurePHYSICIAN NO [facility]-3 [facility] Labor - O/PStart: 02-17-2023 End: 77-33-8956kinwhkblybKATJDPLBT NO [facility] Work Phone: Start: 02-17-2023 End: 20-57-2045Ifmrigw encounter procedurePHYSICIAN NO [facility]-3 [facility] Labor - O/PStart: 02-16-2023 End: 34-65-0834Vzkvkuno ReferredPHYSICIAN NO [facility]-Lab [place] Work Phone: Start: 02-07-2023 End: 78-46-0213Zhfpldk encounter procedurePHYSICIAN NO [facility]-3 [facility] Labor - O/PStart: 01-26-2023 End: 59-99-3274odnagkddinIFYRPZWFH NO [facility] Work Phone: Start: 01-26-2023 End: 83-16-8231Dcflqwu encounter procedurePHYSICIAN NO [facility]-3 [facility] Labor - O/PStart: 01-24-2023 End: 89-20-6620ublhfalahfXYNBAQADX NO [facility] Work Phone: Start: 01-24-2023 End: 67-97-3727Rrcvzjv encounter procedurePHYSICIAN NO [facility]-3 [facility] Labor - O/PStart: 01-16-2023 End: 05-85-5792rbvvzqfavyOdhv ProviderFacility:[facility] HospitalStart: 01-14-2023 End: 25-32-7649clfgftrinuKRLDIQPTK NO [facility] Work Phone: Start: 01-14-2023 End: 45-69-8879Wnrnmfz encounter procedurePHYSICIAN NO [facility] [place] [facility]-3 [facility] Labor - O/PStart: 01-11-2023 End: 79-47-2280Bfjhamkuc department patient visitMarvin StalterFacility:[facility] Hospitaltart: 01-05-2023 End: 54-64-9265aihjkspqzgSnck ProviderFacility:[facility] Hospitaltart: 12-08-2022 End: 28-84-1834Bxcwmaz encounter procedurePHYSICIAN NO [facility] [place] [facility]-3 [facility] Labor - O/PStart: 11-20-2022 End: 78-87-0933nmjgcevtlpJXQNMQGKL NO [facility] [place] [facility] Work Phone: Start: 11-20-2022 End: 38-25-5718Niumwmw encounter procedurePHYSICIAN NO [facility] [place] [facility]-3 [facility] Labor - O/PStart: 11-03-2022 End: 61-84-0269Sapgmul encounter procedurePHYSICIAN NO [facility] [place] [facility]-3 [facility] Labor - O/PStart: 07-21-2022 End: 95-58-0966xnqkammwxoKtuejfb [employer] Other [employer] Other Start: 78-69-7969Bykbsepkx encounterCameron DittyFPG GastroenterologyStart: 07-20-2022 End: 30-07-4813ktdvjtdyckPtvbnmo [employer] Other [employer] Other Start: 67-27-9680Lzrlvazth encounterCameron DittyFPG GastroenterologyStart: 07-05-2022 End: 58-28-7550kmfnfydaorUirvaye [employer] Other [employer] Other Start: 65-34-2487Ygnimynsw encounterCameron DittyFPG GastroenterologyStart: 06-30-2022 End: 07-11-5367gfdpvmgilkXguwkoa [employer] Other [employer] Other Start: 46-66-8063Smwqjfizd encounterCameron DittyFPG GastroenterologyStart: 06-14-2022 End: 44-40-1015oteoqfibiyYylflua [employer] Other [employer] Other Start: 54-42-8996Hukwosnru encounterCameron DittyFPG GastroenterologyStart: 05-30-2022 End: 79-77-7706rqrxobzfutIaymwag [employer] Other [employer] Other Start: 52-30-8919Ewseevtxp encounterCameron DittyFPG GastroenterologyStart: 04-26-2022 End: 75-79-3592idlrjvtiajEkzilph [employer] Other [employer] Other Start: 42-68-2828SWDL visit new patientCameron Ditty FPG GastroenterologyStart: 03-21-2022 End: 15-59-4144lcocffkmqxWgqrlmqb Maritza Other [employer] Other Start: 40-73-6706Lsbrbfdgp encounterLawrence Maritza [facility] Procedures DateProcedureProcedure DetailPerforming ClinicianStart: 82-39-4624Ulqid Strep (POC)PHYSICIAN NO FAMILYStart: 77-21-5530Avrekxvz tomography of abdomen and pelvis with contrastPHYSICIAN NO FAMILYStart: 40-58-0122Ckfcdvce blood count with white cell differential, Rasheeda Gurrola MD Work Phone: start: 26-78-1314Klitoty of ectopic fetusPHYSICIAN NO FAMILYStart: 92-69-2442JKKOV Antigen (POC)PHYSICIAN NO FAMILYStart: 02-08-2025 Quick Strep (POC)PHYSICIAN NO FAMILYStart: 29-83-4773Uuvcn culturePHYSICIAN NO FAMILYStart: 62-86-8892Ettyx culturePHYSICIAN NO FAMILYStart: 00-20-4313Mftil X- ray of right handPHYSICIAN NO FAMILYStart: 33-23-9005Dbeasenmzq exam abdomen 1 Ray Wyman MD Work Phone: Start: 35-13-0339Vcsvm count complete auto&auto difrntl wbcMegan L Isaac 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 - IMPRESS ASSOCIATE Work Phone: Start: 13-41-5888Vzhhiqiwru exam abdomen 1 Rya Wyman MD Work Phone: Start: 79-99-2633Msocm of magnesiumMegan L Isaac 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 - IMPRESS ASSOCIATE Work Phone: Start: 37-80-0287Vchgnelxis exam abdomen 1 Ray Wyman MD Work Phone: Start: 49-87-2690Jiqqe of magnesiumMegan L Isaac 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 - IMPRESS ASSOCIATE Work Phone: Start: 03-62-6739Nkucz of magnesiumMegan L Isaac 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 - IMPRESS ASSOCIATE Work Phone: Start: 04-11-2024 End: 66-50-9986Ccopfc ecg 1-3 leads w/interpretation & reportUnknown Provider ResultStart: 00-25-6684Hhmjd count complete auto&auto difrntl wbcMegan L Isaac 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 - IMPRESS ASSOCIATE Work Phone: Start: 91-15-7238OMDJNOMV PATHOLOGY REPORTStesherrie Wyman MD Work Phone: Start: 00-40-1118Onm prsmptv pthgnc organism scrn w/colony estimjCristiano Singh MD Work Phone: Start: 04-10-2024 End: 13-89-4246YRMYQDMUHZ EXPLORATORYCristiano Singh MD Work Phone: Start: 12-95-6250Spdiy typing serologic Antonia Singh MD Work Phone: Start: 06-35-7376Luuen of lactateKelly Y Palencia PA-C Work Phone: Start: 79-32-2102Re abdomen & pelvis w/contrast materialKelly Y Palencia PA-C Work Phone: Start: 35-01-5407Hw transvaginalKelly Y Palencia PA-C Work Phone: Start: 07-26-2907Roa routine ecg w/least 12 lds i&r onlyKelly Y Palencia PA-C Work Phone: Start: 06-43-5741Nuvwx metabolic panel calcium total Juanis Y Palencia PA-C Work Phone: Start: 94-84-5400Rbkczlcxau microscopic onlyKelly Y Palencia PA-C Work Phone: Start: 83-99-4263Aoljd dip stick/tablet rgnt auto w/o microscopyKelly Y Palencia PA-C Work Phone: Start: 03-14-7422Ar transvaginalChristina R Thong DO Work Phone: Start: 31-67-5460Iteqyqljfw microscopic onlyChristina R Benito DO Work Phone: Start: 38-14-1489Csphr dip stick/tablet rgnt auto w/o microscopyChristina R Benito DO Work Phone: Start: 70-28-2399Mcgzb metabolic panel calcium total Tyrone R Thong DO Work Phone: Start: 51-97-9163Cw abdomen & pelvis w/contrast materialChristina R Thong DO Work Phone: Start: 93-32-4536Gv transvaginalChristina R Benito DO Work Phone: Start: 58-05-1527Klbmhrrbtzstp metabolic panel Tyrone R Thong DO Work Phone: Start: 25-21-1818Hhytffhkpv microscopic onlyChrisshamika R Thong DO Work Phone: Start: 62-83-5433Suayr dip stick/tablet rgnt auto w/o microscopyChrisshamika R Thong DO Work Phone: Start: 26-84-8890Rk abdomen & pelvis w/contrast materialThais Sarah Wong MD Work Phone: Start: 35-23-4260Ufuuwzdxee microscopic onlyKieshaais G Rosalee CLEARY Work Phone: Start: 35-36-2477Skxpo dip stick/tablet rgnt auto w/o microscopyThais G Rosalee CLEARY Work Phone: Start: 77-36-0402Jojyzdzcwcewx metabolic panelThais G Rosalee CLEARY Work Phone: Start: 19-67-0952Hs abdomen & pelvis w/contrast materialM Chema Marshall 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 - IMPRESS ASSOCIATE Work Phone: Start: 41-30-8245Bhnxytlcha microscopic Thomas Lizarraga MD Work Phone: start: 71-30-4063Fnqfn dip stick/tablet rgnt auto w/o microscopyMarianela Lizarraga MD Work Phone: start: 02-07-2024 End: 92-97-0196Xfckdzidakcpd metabolic panelMarianela Lizarraga MD Work Phone: start: 36-56-3151Qb abdomen & pelvis w/contrast materialJaveria J Daigle DO Work Phone: Start: 81-67-8760Sfudqnwzosunv metabolic panelJaveria J Daigle DO Work Phone: Start: 11-40-6652Lxfnw test visual color cmprsn methsJaveria J Daigle DO Work Phone: Start: 67-46-0661Wreac dip stick/tablet reagent auto microscopyJaveria J Daigle DO Work Phone: Start: 77-25-1928EUGV-CoV-2, Influenza & RSV (PCR) PHYSICIAN NO FAMILYStart: 79-48-8139Erudorjdvkf vaginalis detectionPHYSICIAN NO FAMILYStart: 14-78-4762Laaumzxg tomography of abdomen and pelvis with contrast PHYSICIAN NO FAMILYStart: 20-10-3074AUFUK-19, RAPIDJustin Andes DO Work Phone: Start: 57-65-0866Aykdbkvom influenzaJustin Andes DO Work Phone: Start: 62-56-8578Plfqyswdjn exam chest single view Sage Andes DO Work Phone: Start: 34-20-7222Cndii test visual color cmprsn methsViandrew Rangel MD Work Phone: Start: 30-06-8177Zfpyv culturePHYSICIAN NO FAMILY Start: 80-15-2574Imvcr culturePHYSICIAN NO FAMILYStart: 78-06-8567Apjtxiapfuvjn agalactiae culturePHYSICIAN NO FAMILYStart: 39-79-8924Glmza depression screening assessmentLupe Claros RMAStart: 38-38-4893Nhqadkegnqk observation [Identifier] in Cervix by Cyto stainLupe Claros [facility] Plan of Treatment DateCare ActivityDetailAuthorStart: 31-58-5429LTiY,Tdap and Td Vaccines (9 - Td or Tdap)DTaP,Tdap and Td Vaccines (9 - Td or Tdap)[facility] SystemStart: 72-17-7867VPeO/Tdap/Td vaccine (9 - Td or Tdap)DTaP/Tdap/Td vaccine (9 - Td or Tdap)[facility]Start: 34-97-4425FDcA,Tdap and Td Vaccines (8 - Td or Tdap)DTaP,Tdap and Td Vaccines (8 - Td or Tdap)[facility] SystemStart: 04-15-2025 End: 99-74-1442Prnahapc identified in Urine by CultureUrine culture Microbiology Routine Other urinary incontinence Expected: 04/15/2025 (Approximate), Expires: 04/15/2026[facility] Work Phone: comment on above:Expected: 04/15/2025 (Approximate), Expires: 04/15/2026Start: 04-15-2025 End: 84-58-3220Pffemfflgw complete panel - UrineUrinalysis with reflex microscopic Lab Routine Other urinary incontinence Expected: 04/15/2025 (Appr oximate), Expires: 04/15/2026[facility] HealthcareComment on above:Expected: 04/15/2025 (Approximate), Expires: 04/15/2026Start: 04-15-2025 End: 23-47-8751Vbgajfx encounter procedureNOMS Moe OBGYNComment on above: Surgery follow-up; Pelvic peritoneal adhesions, female; Right ovarian cyst; RLQ abdominal painStart: 88-87-8992UJ of abdomen and pelvis without contrastCT abdomen pelvis wo [facility]: 33-27-6202Amtcvcz function panelKettering Health Prebletart: 01-17-7983UeizcijdhKettering Health [facility]: 25-46-8526IrfmsqvooKettering Health [facility]: 03-24-2025 End: 47-68-8499Pcrwumnp admissionKettering Health Prebletart: 01-18-7876Dhyoztb Omentum, Percutaneous Endoscopic ApproachRelease Omentum, Percutaneous Endoscopic ApproachKettering Health Prebletart: 07-17-3397Vqgpndgcb of Right Ovary, Percutaneous Endoscopic ApproachResection of Right Ovary, Percutaneous Endoscopic ApproachCleveland Clinic Avon [facility] Start: 26-13-7784JiqjrvevaKettering Health Prebletart: 57-41-7428Kvwkyxci admissionKettering Health Prebletart: 63-17-8473LEION-19 Vaccine ( season)COVID-19 Vaccine ( season)[facility] HealthcareStart: 14-68-6425Miecevgpv vaccinationUNIVERSITY OF UTAH [facility]OSPITAL HealthcareStart: 82-28-8106Tixkg BMI ScreeningAdult BMI ScreeningProDetwiler Memorial Hospital SystemStart: 02-07-7818Zrxzlew ScreeningTobacco ScreeningProDetwiler Memorial Hospital SystemStart: 54-83-2791Wkgqh culture [facility] CenterStart: 47-62-9753Fiveuxtl identified in Urine by CultureUrine CultureMetrohealth [facility] CenterStart: 01-24-2025 [facility] CenterStart: 55-37-1259AndlxqfasKettering Health Prebletart: 30-14-7115Iikihenu admissionKettering Health Prebletart: 71-62-9947PliyjvuujKettering Health Prebletart: 24-28-8913Gyhum BMI Screening Adult BMI ScreeningMercy Health Allen Hospital SystemStart: 82-91-3041Rxnuiss Screening Tobacco ScreeningMercy Health Allen Hospital SystemStart: 94-64-8520Ebpsl BMI Screening Adult BMI ScreeningMercy Health Allen Hospital SystemStart: 87-11-6414Vzzicyu Screening Tobacco ScreeningMercy Health Allen Hospital SystemStart: 22-56-9194Ruwhs BMI Screening Adult BMI ScreeningMercy Health Allen Hospital SystemStart: 85-88-5011Gonhqmi Screening Tobacco ScreeningMercy Health Allen Hospital SystemStart: 13-68-6136NhnkvkzguKettering Health Prebletart: 94-13-2472Ywlndsdj admissionKettering Health [facility]: 07-82-0286RitxeemhtMetrohealth [facility] CenterStart: 12-03-2024 Hospital admissionMetrohealth [facility] CenterStart: 60-21-2369Bdkxd cultureKettering Health Prebletart: 69-61-1047Nbihrbor identified in Urine by CultureUrine CultureKettering Health Prebletart: 11-16-2024 [facility] CenterStart: 06-36-2824Snkchcyt admissionMetrohealth [facility] CenterStart: 57-99-3513QkgywgkklMetrohealth [facility] CenterStart: 63-95-2843JghigqojiKettering Health Prebletart: 50-35-7964Twmaymhv to Social ServicesKettering Health Pre[facility]tart: 57-73-3430Sbmvazxl admission [facility]: 11-06-2024 End: 71-80-3478Ulggifs encounter kixartfhj67/21/2025 4:00 PM EDT Office Visit [facility] [address] [place] [address] Michael Gurrola MD [address] [place] [address] ArrivedNOMS [facility] OBComment on above:ArrivedStart: 10-30-2024 Depression MonitoringDepression MonitoringBON [facility]ITALStart: 09-17-2024 End: 51-18-9780Xtrfpvt encounter oadacsqxh32/01/2025 4:15 PM EDT Office Visit [facility] [address] [place] [address] Michael Gurrola MD [address] [place] [address] [facility] SWS OBStart: 09-17-2024 End: 25-23-9303Mqeehjvchkrr / ancillary services tzhehevbjn22/01/2025 3:00 PM EDT Ancillary Procedure [facility] [address] [place] [address] [facility] OBStart: 09-17-2024 End: 73-62-1041Ykdvumz encounter gyxkkpgjc54/01/2025 11:45 AM EDT Office Visit [facility] [address] [place] [address] Michael Gurrola MD [address] [place] [address] [facility] SWS OBStart: 09-11-2024 End: 09-08-8346Njqfiac encounter lnqqaikcw53/26/2025 1:30 PM EDT Office Visit [facility] [address] [place] [address] Michael Gurrola MD [address] [place] [address] ArrivedMIHAIMS [facility] OBComment on above:ArrivedStart: 08-01-2024 End: 38-30-7730Yzqbtid encounter ctbvudofk69/13/2025 1:45 PM EST Office Visit [facility] [address] [place] [address] Michael Gurrola MD [address] [facility] [address] [place] [address] [facility] SWS OBStart: 08-01-2024 End: 98-70-1940Mncmuicqvpyb / ancillary services ipisrtroyc02/13/2025 1:00 PM EST Ancillary Procedure [facility] [address] [facility] [address] [place] [address] [facility] OBStart: 00-85-8899Omiwxnjsji Monitoring Depression MonitoringINOVA LOUDOUN HOSPITALStart: 07-10-2024 End: 19-30-3891Wxpbxvl encounter gjlsszomh60/22/2025 2:30 PM EST Office Visit [facility] [address] [facility] [address] [place] [address] Michael Gurrola MD [address] [facility] [address] [place] [address] Pelvic pain in female; Chronic low back pain without sciatica, unspecified back pain lateralityNOMS [facility] OBComment on above:Pelvic pain in female; Chronic low back pain without sciatica, unspecified back pain lateralityStart: 06-04-2024 End: 95-40-9029Hoajsqp encounter /17/2024 11:30 AM EST Office Visit [facility] [address] [place] [address] Asael Tapia, 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-IMPRESS ASSOCIATE [address] [place] [address] [facility] MedicineStart: 05-29-2024 End: 10-56-7221Qxifyvw encounter rxyrviqwi01/11/2024 2:00 PM EST Office Visit [facility] OBSTETRICS & GYNECOLOGY Part of [address] [place] [address] Nj Bowser MD [address] [place] [address] [address] [place] [address] follow up from surgery 04/10/24[facility] Part [facility]Comment [facility]:follow up from surgery 04/10/24Start: 04-23-2024 End: 15-22-5037Bqsisjb encounter nauifkmbj49/05/2024 4:00 PM EST Office Visit [facility] GENERAL SURGERY Part of [address] [place] [address] Mary Ellen Soriano, DO [address] [place] [address] Post op (04/10)-ex [facility], appyMJoint Township District Memorial HospitalComment on above:Post op ([place] 04/10)-ex lap, appyStart: 03-22-2024 End: 01-70-0593Lpjhobg encounter tdytgfzzj42/04/2024 1:30 PM EDT Office Visit [facility] - Women's Services [address] [place] [address] [phone] [facility]s Psych[facility] - Women's ServicesStart: 02-20-2024 End: 54-09-9913Iectstw encounter hajdqenzr93/03/2024 1:00 PM EDT Office Visit [facility] OBSTETRICS & GYNECOLOGY Part of [address] [place] [address] Mickie Barrientos, DO [address] [place] [address] P/O follow up infectionW[facility] Part [facility] HospitalComment on above:P/O follow up infectionStart: 82-74-8185RLXBJ- 19 Vaccine ( season)COVID-19 Vaccine ( season)JAY LARA [facility]AMPUSStart: 24-14-6853Yurduoppv vaccinationSoutheast Missouri Community Treatment CenterStart: 02-06-2024 End: 43-24-0408Uffrohl encounter tjvckexug72/20/2024 4:30 PM EDT Office Visit [facility] Ob[facility]etrics [facility]ne[facility] [address] [facility], [address] [place] [address] Esther Burrell PA-C [address] [place] [address] F/U from [facility] to [facility] Obstetrics & GynecologyComment on above:F/U from admission to ProMedicaStart: 25-85-4169Hqhvpmvle vaccinationBON SECOURS [facility] CAMPUSStart: 82-47-4078HscuilcckKettering Health Prebletart: 01-08-2024 Bacteria identified in Blood by CultureKettering Health Prebletart: 03-53-7878Kirzehu CultureGenital CultureKettering Health Prebletart: 01-05-2024 End: 95-24-1199Yhcixne encounter peflomjka98/19/2024 10:00 AM EDT Office Visit [facility] Certified Nurse Sales Engagement Manager - [place] [address] [address] [place] [facility] Certified Nurse Sales Engagement Manager - [place]Start: 12-26-2023 End: 70-19-9890Hnnswkk encounter nomtffjqp08/09/2024 11:45 AM EDT Office Visit [facility]STET[facility]YNECOLOGY Part of [address] [place] [address] Mickie Barrientos, LI[address] [place] [address] 6 wk post-op TLH BA 09/12[facility] Part [facility] HospitalComment on above:6 wk post-op [facility] 09/12Start: 12-06-2023 End: 25-47-2046Nrwxvfq encounter /19/2024 11:30 AM EDT Office Visit [facility]YNECOLOGY Part of [address] [place] [address] Esther Burrell PA-C [address] [place] [address] 2 wk post-op [address] OBSTETRICS & GYNECOLOGY Part [facility] HospitalComment on above:2 wk post-op [facility] 09/12Start: 11-20-2023 End: 82-83-5885Bcaq total hysterect 250 gm/< w/rmvl tube/ovaryHYSTERECTOMY VAGINAL LAPAROSCOPIC ROBOTIC ASSISTED Menorrhagia with regular cycle Pelvic pain Adenomyosis Pelvic congestion syndrome 11/20/2023 1:56 PM EDDetwiler Memorial Hospital HospitalStart: 08-29-2023 End: 66-03-0040Rngjomg encounter mnsecckiu36/12/2024 11:30 AM EDT Office Visit [facility] OBST[facility] GYNECOLOGY Part of [address] [place] [address] Mickie Barrientos, AH[address] [place] [address] shoe lay out planner us for RLQ pain & DUB / discuss Hyst / [facility] Part [facility] HospitalComment on above:shoe lay out planner us for RLQ pain & DUB / discuss Hyst / Kp PtStart: 08-29-2023 End: 66-74-8062Yjpznexosnlb / ancillary services dcaxowaary08/12/2024 11:00 AM EDT Ancillary Procedure [facility]OLOG[facility] Part of [address] [place] [address] shoe lay out planner us / RLQ pain & [facility]UBWEXNER [facility] Part [facility] HospitalComment on above:shoe lay out planner us / RLQ pain & DUBStart: 08-23-2023 End: 13-25-6142Drjxxor encounter gyujaduwy41/06/2024 10:30 AM EST Office Visit [facility] Gastroenterology [address] [place] [address] Pia Coates, 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 - IMPRESS ASSOCIATE [address] [place] [address] [address] [place] [address] 6 [facility] GastroenterologyComment on above:6 wksStart: 07-25-2023 End: 09-35-9342Vzeimsfdyymbalwusajfvqlyta transoral diagnosticEGD ESOPHAGOGASTRODUODENOSCOPY Chronic GERD Diarrhea, unspecified type Gas pain 07/25/2023 9:18 AM [facility] ENDOSCOPYStart: 99-62-0752Henmjhpyh for malignant neoplasm of cervixPap SmearProAeromics [facility] SystemStart: 86-37-1297Nwfxovf IgG measurementKettering Health Prebletart: 22-95-8679UuvvqkcwxK[facility] Health [facility]: 21-35-3329AsmilezrtKet[facility] Health [facility]: 80-88-0869Bqaiebhl admissionKettering Health [facility]: 02-26-2023 Hospital admissionK[facility] Health [facility]: 35-28-2438NmtwzlxgrKettering Health [facility]: 53-64-3328Jqtzjpxk of Products of Conception, External ApproachDelivery of Products of Conception, External ApproachKettering Health Prebletart: 69-65-6100Xwlsyagk of Amniotic Fluid, Therapeutic from Products of Conception, Via Natural or Artificial OpeningDrainage of Amniotic Fluid, Therapeutic from Products of Conception, Via Natural or Artificial OpeningMet[facility]health [facility] CenterStart: 46-46-5465Qrsbi cultureUrine CultureKettering Health Prebletart: 57-87-9231HrgyyhqmoMetrohealth [facility] CenterStart: 34-12-8445Tfhpsztx admissionKettering Health Pre[facility]tart: 73-04-6799DbarewempMetrohealth [facility] CenterStart: 77-29-6958Wevnlgkh admissionKettering Health Prebletart: 02-22-2023 Bacteria identified in Urine by CultureKettering Health Prebletart: 65-80-0183SiwolzduvKettering Health Prebletart: 64-93-5931Cislexlh admission [facility] CenterStart: 95-46-6402OhrdcmebiMetrohealth [facility] CenterStart: 61-72-6956Xvhzmqev admissionMetrohealth [facility] CenterStart: 75-65-6291GQTTW-19 Vaccine ( season)COVID-19 Vaccine ( season)[facility]OS[facility]ITALStart: 52-78-4296Cbdoaqtreyamn agalactiae culture Group B Streptococcus CultureMetrohealth [facility] CenterStart: 02-07-2023 [facility] CenterStart: 25-72-1806Gwhipnvs admissionMetrohealth [facility] CenterStart: 99-12-3477PqpepstcoMetrohealth [facility] CenterStart: 39-96-6661Djukdubk admissionMetrohealth [facility] CenterStart: 01-24-2023 Hospital admissionMetrohealth [facility] CenterStart: 01-24-2023 End: 56-13-8426WbdjrlyzzMetrohealth [facility] CenterStart: 47-19-2899Yhabvyheh vaccinationFlu vaccine (#1)[facility]OS[facility]ITALStart: 90-42-6985NfbyrfaqyMetrohealth [facility] CenterStart: 67-72-5032Qcbomijw admissionKettering Health Prebletart: 28-64-7726Xlyoq BMI ScreeningAdult BMI ScreeningMercy Health Allen Hospital SystemStart: 57-52-6783Uqfxiguwsu ScreeningDepression ScreeningMercy Health Allen Hospital SystemStart: 77-60-9258Gvqfafh ScreeningTobacco ScreeningUNC Health Johnston Claytontart: 69-80-0502JfiopkscfMetrohealth [facility] CenterStart: 12-08-2022 Hospital admissionMetrohealth [facility] CenterStart: 92-97-9322RqdeluxydMetrohealth [facility] CenterStart: 44-85-8653Cmzgsvku admissionKettering Health Prebletart: 14-29-8693YtggrzrzjMetrohealth [facility] CenterStart: 53-86-6641Ovfuvpmr admissionKettering Health Prebletart: 09-12-2022 HPV Vaccines (1 - 3-dose SCDM series)HPV Vaccines (1 - 3-dose SCDM series)[facility] HealthcareStart: 88-98-9361Clfeoruwy for malignant neoplasm of cervixPap smear [facility]OS[facility]ITALStart: 71-52-5011Inmtuobon B Vaccines (1 of 3 - 19+ 3- dose series)Hepatitis B Vaccines (1 of 3 - 19+ 3-dose series)[facility] Start: 22-08-8056Xwzyiembatjb Vaccine: Pediatrics (0 to 5 Years) and At-Risk Patients (6 to 64 Years) (1 of 2 - PCV)Pneumococcal Vaccine: Pediatrics (0 to 5 Years) and At-Risk Patients (6 to 64 Years) (1 of 2 - PCV)[facility] CenterStart: 43-77-2305Efxwm BMI Follow Up PlanAdult BMI Follow Up PlanUNC Health Johnston Claytontart: 28-95-2364Btsgbuaby C screeningHepatitis C screenBON [facility]ITALStart: 84-03-9739QNZ screeningHIV [facility] Hospitalart: 11-70-6211Ugpvwlr of varicella vaccinationVaricella Vaccines (1 of 2 - 13+ 2- dose series)[facility] CenterStart: 02-65-0798Mykacsdcz vaccine (2 of 2 - 2-dose childhood series)Varicella vaccine (2 of 2 - 2-dose childhood series)[facility] Hospitalart: 30-07-1925MCmL/Tdap/Td Vaccines (1 - Tdap)DTaP/Tdap/Td Vaccines (1 - Tdap)[facility] CenterStart: 34-01-4176Vxhgoedmxurf 0-64 years Vaccine (1 of 2 - PCV)Pneumococcal 0-64 years Vaccine (1 of 2 - PCV)[facility] Hospitalart: 39-18-9309ZZN Vaccines (1 of 1 - Standard series)MMR Vaccines (1 of 1 - Standard series)[facility] CenterStart: 44-92-0538JDCRL-19 Vaccine (#1) COVID-19 Vaccine (#1)[facility]ITALStart: 99-60-6113Svfzhsh Counseling Tobacco CounselingSumma Health Barberton CampusAlbumin/Globulin ratioCleveland Clinic Avon HospitalAnion gap measurementCleveland Clinic [facility]on Hospital Bacteria identified in Genital specimen by Aerobe cultureCleveland Clinic Avon HospitalBasophils [#/volume] in Blood by Automated countCleveland Clinic Avon HospitalBasophils/100 leukocytes in Blood by Automated [facility] HospitalBilirubin.indirect [Mass/volume] in Serum or Plasma [facility] End: 53-70-8919Hcjst Culture 1BON [facility] on above:One Time for 1 Occurrences starting 02/03/2024 until 02/03/2024T Abdomen and Pelvis W contrast IVCT ABDOMEN PELVIS W IV CONTRAST Additional Contrast? None Imaging STAT 04/02/2024 12:29 PM EDTBon [facility] HospitalEosinophils/100 leukocytes in Blood by Automated [facility] HospitalErythrocyte distribution width [Ratio] by Automated [facility] Erythrocytes [#/volume] in [facility] HospitalEstradiol (E2) [Mass/volume] in Serum or PlasmaCleveland Clinic Avon HospitalGlobulin [Mass/volume] in SerumCleveland Clinic Avon HospitalGlomerular filtration rate [Volume Rate/Area] in Serum, Plasma or Blood by CreatinineCleveland Clinic Avon HospitalHematocrit [Volume Fraction] of [facility] HospitalHemoglobin [Mass/volume] in [facility] Hepatitis B virus surface Ag [Presence] in Serum or Plasma by Immunoassay [facility] End: 96-03-3252YJDLPRNH PACU OXYGEN THERAPY PROTOCOLInitiate PACU Oxygen Therapy Protocol Respiratory Care Routine Continuous until discontinued starting 11/20/2023ON [facility] on above:Continuous until discontinued starting 11/20/2023Leukocytes [#/volume] corrected for nucleated erythrocytes in Blood by Automated [facility] HospitalLeukocytes [#/volume] in [facility] HospitalLymphocytes [#/volume] in Blood by Automated [facility] HospitalLymphocytes/100 leukocytes in Blood by Automated [facility] HospitalMCH [Entitic mass] by Automated [facility] HospitalMCHC [Mass/volume] by Automated [facility] HospitalMCV [Entitic volume] by Automated count [facility] HospitalMonocytes [#/volume] in Blood by Automated [facility] HospitalMonocytes/100 leukocytes in Blood by Automated [facility] HospitalNeutrophils [#/volume] in Blood by Automated [facility] HospitalNeutrophils/100 leukocytes in Blood by Automated [facility] HospitalNucleated erythrocytes [Presence] in Blood by Automated [facility] HospitalOxygen therapy [Minimum Data Set]Initiate Oxygen Therapy Protocol Respiratory Care Routine As Needed until discontinued starting 11/20/2023 [employer] [place] Comment on above:As Needed until discontinued starting 11/20/2023Oxygen therapy [Minimum Data Set]Initiate Oxygen Therapy Protocol Respiratory Care Routine Daily until discontinued starting 04/11/2024 TendrSamaritan Hospitalment on above:Daily until discontinued starting 04/11/2024atient EducationMetrohealth [facility] Ctr Work Phone: Patient referralMetrohealth [facility] Center [facility]tr Work Phone: Platelet mean volume [Entitic volume] in Blood by Automated countCleveland Clinic Avon HospitalPlatelets [#/volume] in Blood [facility] End: 03-09-3092Quglvaolx, urine POCTPregnancy, urine POCT Point of Care Testing Routine One Time for 1 Occurrences starting 11/20/2023 until 11/20/2023 [facility] TexasSamaritan Hospitalment on above:One Time for 1 Occurrences starting 11/20/2023 until 11/20/2023eagin Ab [Presence] in Serum by [facility] Centerurgical PathologySurgical Pathology Lab Routine Chronic GERD Diarrhea, unspecified type Gas pain Release Upon Ordering for 1 Occurrences starting 07/25/2023 [employer] [place] Work Phone: Comment on above:Release Upon Ordering for 1 Occurrences starting 07/25/2023Surgical PathologySurgical Pathology Lab Routine Menorrhagia with regular cycle Pelvic pain Adenomyosis Pelvic congestion syndrome Release Upon Ordering for 1 Occurrences starting 11/20/2023 [employer] [place] Work Phone: Comment on above:Release Upon Ordering for 1 Occurrences starting 11/20/2023 End: 67-73-8410HHRWDMZY PATHOLOGY REPORTSURGICAL PATHOLOGY REPORT Lab Routine Once for 1 Occurrences starting 11/20/2023 until 11/20/2023 [employer] on above:Once for 1 Occurrences starting 11/20/2023 until 11/20/2023Surgical pathology studySurgical Pathology Lab Routine Peritoneal cavity free air Release Upon Ordering for 1 Occurrences starting 04/10/2024 [employer] on above:Release Upon Ordering for 1 Occurrences starting 04/10/2024 End: 21-86-0677NY Pelvis transvaginalBON LITTLE COLORADO MEDICAL CENTERSHIFT Work Phone: Comment on above:Once for 1 Occurrences starting 03/17/2024 until 03/17/2024 End: 00-10-1313Jtifbmzft DNA ProbeBON [employer] [facility] HOSPITALComment on above:1 Occurrences starting 02/06/2024 until 02/06/2024[facility] Immunizations Immunization DateImmunizationNotesCare AerkqntpTivbfylv28-79-0277xxftpoi toxoid, reduced diphtheria toxoid, and acellular pertussis vaccine, adsorbedPHYSICIAN NO [facility]06-22-2022measles, mumps and rubella virus vaccinePHYSICIAN [facility]06-22-2022 tetanus toxoid, reduced diphtheria toxoid, and acellular pertussis vaccine, adsorbedPHYSICIAN NO [facility]07-11-2019tetanus toxoid, reduced diphtheria toxoid, and acellular pertussis vaccine, adsorbed Center Services Work Phone: [phone] [place], [place] 3891302-07-2015measles, mumps and rubella virus vaccineCenter Services Work Phone: [phone] [place], [place] 3891311-06-2014influenza, seasonal, injectable, preservative freeCenter Services Work Phone: [phone] [place], [place] 3891311-06-2014influenza virus vaccine, unspecified formulationLupe Claros [facility] 04-83-3259qcsgacqtjb, tetanus toxoids and acellular pertussis vaccine, unspecified formulationCenter Services Work Phone: [phone] [place], [place] 3891306-04-2003haemophilus influenzae type b conjugate and Hepatitis B vaccineCenter Services Work Phone: [phone] [place], [place] 3891306-04-2003measles, mumps and rubella virus vaccineCenter Services Work Phone: [phone] [place], [place] 3891306-04-2003varicella virus vaccineCenter Services Work Phone: [phone]-16-2002diphtheria, tetanus toxoids and acellular pertussis vaccine, unspecified formulationCenter Services Work Phone: [phone]-16-2002haemophilus influenzae type b vaccine, conjugate unspecified formulationCenter Services Work Phone: [phone] [place], [place] 0127010-16-2002poliovirus vaccine, inactivatedCenter Services Work Phone: [phone] [place], [place] 0127008-22-2002diphtheria, tetanus toxoids and acellular pertussis vaccine, unspecified formulationCenter Services Work Phone: [phone]08-22-2002haemophilus influenzae type b conjugate and Hepatitis B vaccineCenter Services Work Phone: [phone] [place], [place] 0127008-22-2002poliovirus vaccine, inactivatedCenter Services Work Phone: [phone] [place], [place] 0127006-19-2002diphtheria, tetanus toxoids and acellular pertussis vaccine, unspecified formulationCenter Services Work Phone: [phone] [place], [place] 0127006-19-2002haemophilus influenzae type b conjugate and Hepatitis B vaccineCenter Services Work Phone: [phone] [place], [place] 0127006-19-2002poliovirus vaccine, inactivatedCenter Services Work Phone: [phone] [place], [place] 0127005-15-2001diphtheria, tetanus toxoids and acellular pertussis vaccine, unspecified formulationCenter Services Work Phone: [phone] [place], [place] 0127005-15-2001measles, mumps and rubella virus vaccineCenter Services Work Phone: [phone] [place], [place] 0127005-15-2001poliovirus vaccine, inactivatedCenter Services Work Phone: [phone] [place], [place] 0127005-16-1997diphtheria, tetanus toxoids and acellular pertussis vaccine, unspecified formulationCenter Services Work Phone: [phone] [place], [place] 0127005-16-1997haemophilus influenzae type b vaccine, conjugate unspecified formulationCenter Services Work Phone: [phone]05-16-1997measles, mumps and rubella virus vaccineCenter Services Work Phone: [phone] [place], [place] [address]Wgchxh12-05-2395TUG-Luzvegghnnf influenzae type b conjugate vaccineCenter Services Work Phone: [phone] [place], [place] 0127010-30-1996hepatitis B vaccine, pediatric or pediatric/adolescent dosageCenter Services Work Phone: [phone] [place], [place] 0127010-30-1996trivalent poliovirus vaccine, live, oralCenter Services Work Phone: [phone] [place], [place] 0127008-15-1996DTP-Haemophilus influenzae type b conjugate vaccineCenter Services Work Phone: [phone] [place], [place] 0127008-15-1996trivalent poliovirus vaccine, live, oralCenter Services Work Phone: [phone] [place], [place] 0127005-30-1996DTP-Haemophilus influenzae type b conjugate vaccineCenter [facility] Work Phone: [phone] [place], [place] 0127005-30-1996hepatitis B vaccine, pediatric or pediatric/adolescent dosageCenter Services Work Phone: [phone] [place], [place] 0127005-30-1996trivalent poliovirus vaccine, live, oralCenter Services Work Phone: [phone] [place], [place] 0127003-28-1996hepatitis B vaccine, pediatric or pediatric/adolescent dosageCenter Services Work Phone: [phone] [place] [address] Payers DatePayer CategoryPayerPolicy [id number] Health InsuranceCARESOURCE MEDICAID [id number] 2023MedicaidCARESOURCESOURCE MEDICAID CARESOURCE MEDICAID HMO [id number] 2022-Present [phone] [address] [place] [address] [id number] [id number] 2.16840.1.597872.3.57[id number] 2.16840.1.560220.3.57[id number] 2.16840.1.197236.3.57[id number] 2.16840.1.952239.3.57[id number] 2.16840.1.664392.3.579.2.[id number] 2.16840.1.044697.3.579.2.[id number] 2.16840.1.067769.3.57[id number] 2.16840.1.119990.3.579.[id number] 2.16840.1.682131.3.579.2.73234-57-1833Nlqsxif50094046 2.16840.1.911026.3.579.2.578258-47-1230Asfopeq77739564 2.16840.1.043554.3.579.2.993414-47-4327Exsrrvh23315008 2.16840.1.885755.3.579.2.133848-78-9859Qfxfjhb81157541 2.840.1.764150.3.579.2.052410-61-9388Cwtlblg62041336 2.840.1.333039.3.579.2.160485-61-7073Ppudtge43734791 2.0.1.498533.3.579.2.010971-73-4187Dltkvmq53946246 2.840.1.478436.3.579.2.461633-81-3182Xqlhitn12080326 2..1.465540.3.579.2.39592-34-5822Lpkfcag72435777 2.0.1.262251.3.57[id number] 2.0.1.325377.3.579.2.08028-62-1525Ohcoxbg26528496 2.0.1.559680.3.579.2.57322-15-6405Bonxves38697071 2.0.1.932061.3.579.2.55111-67-7008Iokzghm09057404 2.0.1.215442.3.579.2.43870-81-6688Jvcqjvk15526779 2.0.1.470723.3.579.2.88096-75-5301Eixcrje28258847 2.0.1.000723.3.579.2.24666-83-6155Dseyjjj64045456 2.0.1.244198.3.579.2.91174-19-3408Zmhyqqt51717486 2.840.1.047736.3.579.2.00118-59-1547Hrdufxn44977339 2.16.840.1.964444.3.579.2.18933-47-5609Llkcptl51586127 2.16.840.1.843381.3.579.2.57695-89-8449Yyqiifl67774982 2.16.840.1.449801.3.579.2.42280-71-7002Nvlmlym96874773 2.16.840.1.761696.3.579.2.871903-19-2475Kohsgnc6065665 2.16.840.1.193510.3.579.2.157821-99-3233Wabslpf5371853 2.16.840.1.992571.3.579.2.668681-62-6700Stcqkwx2974045 2..840.1.268581.3.579.2.447443-31-8518Jxsdwbp9188239 2..0.1.733424.3.579.2.607229-31-8408Vfpnxej5638760 2.16.840.1.585525.3.579.2.1259Self-paySelf Pay [id number] 2.840.1.427995.19Unknown [id number] Social History DateTypeDetailFacilityStart: 07-25-2023 End: 74-81-3553Xtd Assigned At BirthBON [facility]ITALStart: 06-21-2022 End: 59-00-2137Dkpoqnk smoking status NHISSmoker (finding)[facility]art: 42-33-1974Bzi Assigned At BirthChillicothe VA Medical Centertart: 03-07-7901Lwfhgjg smoking status NHISNever smoked tobacco [facility]Start: 04-25-2023 End: 86-42-8447Qbuxlwv use and exposureSmokeless tobacco non-userJAY LITTLE COLORADO MEDICAL CENTERmyAchy [facility]USStart: 07-25-2023 End: 77-57-3220Nqmgzba intakeEx-drinker (finding)[facility]Start: 07-25-2023 End: 62-79-6260Qyntitg of Social functionINOVA LOUDOUN HOSPITALStart: 29-71-3027Tvhtsii Health Questionnaire 9 item (PHQ-9) total score [Reported]23 [facility]ITALStart: 61-69-2319Bfzwdbs CommentoccINOVA LOUDOUN HOSPITALStart: 66-43-7983Urm Assigned At BirthNot on [facility] How often to you have a drink containing alcohol?NeverINOVA LOUDOUN HOSPITAL Start: 04-02-2024 End: 97-55-1633Zhwacfa smoking status NHISSmokes tobacco dailySmyth County Community HospitalHistory of tobacco useCigarette SmokerSumma Health Barberton CampusHas the Crave.com, gas, oil, or water Chumby threatened to shut off services in your home in past 12S[facility](I/We) worried whether (my/our) food would run out before (I/we) got money to buy more.Never trueSmyth County Community HospitalStart: 41-81-2956Hklnnan smoking status NHISOccasional tobacco smokerUNIVERSITY OF UTAH [facility]OSPITAL HealthcareStart: 01-23-2024 End: 62-63-3826Zwmyfirqq beverage intakeLifetime non-drinker (finding)[facility] Claytontart: 97-74-9698Hbwudrazs74HFEV HealthcareStart: 07-22-2024 End: 04-79-2364DxzMbeftd (finding)[facility]art: 06-30-2020 End: 73-29-9944Cipgicm smoking status NHISEx-smokerUNC Health Johnston Claytontart: 04-28-2020 End: 42-15-6767Imihltu CommentDown to 2-3 cig/day with pregnancyUNC Health Johnston Claytontart: 50-20-7491Qsdsutv smoking status NHISUnknown if ever smoked [facility] HospitalNEGATED: Highlighted [facility] Goals DatePatient GoalDesired Activity/StatePersonal health goalComment on above: Evaluation of progress towards goal: progressing towards safe discharge from hospital Functional Status LeykDwjaajqtkwRuxkdjEtzpthqp66-79-2239Qaawlwahop statusPatient at Baseline [facility] Work Phone: [phone] statusPatient at Baseline [facility] Work Phone: [phone] statusDisability Status Patient at BaselineUniversity [facility] Work Phone: [phone] statusPatient at Baseline [facility] Work Phone: [phone] statusFunctional Status Comment Independent with all ADLs and IADLs.[facility] Work Phone: [phone] statusPatient at Baseline [facility] Work Phone: Mental Status BjtwMxdtcpxdloCdsuyjGdcrvwjm39-55-4805Hlhqkmksi functionCognitive Status Patient at BaselineUniversity [facility] Work Phone: [phone] functionCognitive Status Patient at BaselineUniversity [facility] Work Phone: [phone] functionCognitive Status Patient at BaselineUniversity [facility] Work Phone: [phone] functionCognitive Status Patient at [facility] Work Phone: Clinical Notes 04-26-2022 to 04-15-2025 Note Date & ReauPcwkAjptnqji41-70-3637 History of Present illness Narrative* Michael Gurrola MD - 04/15/2025 11:30 AM EDT Images from the original note were not included. Michael Gurrola MD Obstetrics and Gynecology Patient: Barbra T Gonsalo, : 1995 (29 y.o.) DOS 04/15/25 Exam Date: 04/15/2025 HPI: Pt had emergency surgery for acute on chronic abd pain and ovarian cyst. She underwent laparoscopy with lysis of adhesions and right oophorectomy( she now has had hysterectomy and jovany oophorectomies in separate procedures) Her preop pain is gone. She is using estrogen patch and believes the patch is causing morning sickness. No hotflashes She c/o urinary incontinence Visit Vitals BP 120/78 Wt 195 lb LMP 06/15/2023 BMI 31.96 kg/m OB Status Hysterectomy Smoking Status Some Days BSA 2.02 m OB History Para Term AB Living [...] Review Audit Reviewed by Fe Silveira MA (Superintendent Job) on 04/15/25 at 1148 Medication Order Taking? Sig Documenting Provider Last Dose Status hydrOXYzine HCl (Atarax) 50 MG tablet [id number] TAKE 1 TABLET BY MOUTH THREE TIMES DAILY NEEDED FOR ITCHING Michael Gurrola MD Active ondansetron (Zofran) 4 MG tablet [id number] Take 1 tablet (4 mg) by mouth every 8 (eight) hours if needed for nausea for up to 7 days Michael Gurrola MD Active Discontinued 04/15/25 1126 venlafaxine XR (Effexor XR) 75 MG 24 hr capsule [id number] Take 75 mg by mouth in the morning. Take with meals. Michael Gurrola MD Active Allergies[1] Medical History[2] Surgical History[3] Physical Exam: Objective Physical Exam Constitutional: Appearance: Normal appearance. Genitourinary: Vulva normal. Pulmonary: Effort: Pulmonary effort is normal. Abdominal: General: There is no distension. Palpations: Abdomen is soft. Tenderness: There is no abdominal tenderness. There is no guarding. Comments: Incisons healed. Neurological: Mental Status: She is alert. Assessment/Plan ICD-10-CM 1. Surgery follow-up Z09 2. Pelvic peritoneal adhesions, female N73.6 3. Right ovarian cyst N83.201 4. RLQ abdominal pain R10.31 5. Other urinary incontinence N39.498 Urine culture Urinalysis with reflex microscopic Urine culture 6. Menopausal symptoms N95.1 estradiol (Vivelle-DOT) 0.05 MG/24HR Reduce estrogen dose Check urine culture Start Kegel exercises Orders Placed This Encounter Procedures Urine culture Standing Status: Future Number of Occurrences: 1 Expected Date: 04/15/2025 Expiration Date: 04/15/2026 Print requisition?: Yes Urinalysis with reflex microscopic Standing Status: Future Expected Date: 04/15/2025 Expiration Date: 04/15/2026 Print requisition?: Yes [1] Allergies Allergen Reactions Chlorpheniramine Anaphylaxis and Other Dextromethorphan Other Dm-Apap-Cpm Angioedema and Swelling Throat Swells Pseudoephedrine Other [2] Past Medical History: Diagnosis Date ADHD (attention deficit hyperactivity disorder) Anxiety History of being hospitalized blood transfusion, bronchitis, pneumonia Ovarian cyst PTSD (post-traumatic stress disorder) [3] Past Surgical History: Procedure Laterality Date COSMETIC SURGERY nose age 4 CT ANGIOGRAM HEART CORONARY 01/13/2024 CT ANGIOGRAM TAVR 01/13/2024 HYSTERECTOMY OTHER SURGICAL HISTORY PELVIC LAPAROSCOPY 11/2019 with ovarian cystectomy PELVIC LAPAROSCOPY Lysis of adhesions, right oophorectomy-2024 SALPINGECTOMY Bilateral VAGINAL DELIVERY x3 2014, 2020, 2021 documented in this encounterSoutheast Missouri Community Treatment CenterJxhqfvxatq49-10-0892 Radiology Diagnostic study [facility] [place] [address] [place] [address] CT Scan Report Signed Patient: Barbra Claros MR#: [id number] : 1995 Acct:[id number] Age/Sex: 29 / F ADM Date: 5 Loc: ER Room: Type: [facility] ER Attending Dr: Copies to: Goyo Epps [...] is grossly unremarkable. Uterus has been removed.] Peritoneum/Retroperitoneum:Scattered areas of free air are noted likely postsurgical in nature. Small amount of blood is seen within the pelvis. No lymphadenopathy.[ Abd wall/Bones:Abdominal wall demonstrates postoperative changes. No fluid collection to suggest abscess. Fat-containing umbilical hernia. Osseous structures demonstrate degenerative change.[ CT/CT abdomen pelvis w con IMPRESSION: Impression dictated by: Leonard Mraia Jr., D.OJudd 03/26/2025 11:31 AM Dictation Location: [place] [address] Transcribed By: [facility] 03/26/25 1131 Dictated By: Leonard Maria Jr, DO 03/26/25 1127 Signed By: 03/26/25 1131 [facility]10-07-2025 [place] [address] [employer]OX [employer] Progress Note Signed Patient: Barbra Claros MR#: [id number] : 1995 Acct:[id number] Age/Sex: 29 / F Adm Date: 5 Loc: Room: [address] [place] [address] Type: ADM IN Attending Dr: Michael Gurrola MD Copies to: ~ Date of Service: 03/25/2025 CLIENT SUPPORT CONSULTANT - PN: Subj Data Subjective History of Present Illness: POD #1 Laparoscopy with lysis of adhesions and right oophorectomy. She feels better this morning. Her preop pain is gone. She is hungry CLIENT SUPPORT CONSULTANT - PN: Obj Data Labs Labs: Laboratory Results - last 24 hr 03/25/25 06:49 Corrected WBC 6.9 Uncorrected WBC Count 6.9 RBC 3.85 Hgb 11.0 L Hct 33.2 L MCV 86.2 MCH 28.5 MCHC 33.1 RDW 14.0 Plt Count 261 MPV 7.4 Neut % (Auto) 77.6 Lymph % (Auto) 14.7 [place] % (Auto) 7.6 Eos % (Auto) 0.0 Baso % (Auto) 0.1 Nucleat RBC Rel Count 0.1 Neut # (Auto) 5.4 Lymph # (Auto) 1.0 [place] # (Auto) 0.5 Eos # (Auto) 0.0 Baso # (Auto) 0.0 CLIENT SUPPORT CONSULTANT - Exam Physical Exam Vital signs: Temp [...] MICHAEL GURROLA MD 03/25/25 0846 Signed By: 03/25/25 0849 [facility]10-06-2025 History and physical note Author MICHAEL GURROLA [facility] HospitalNote Date/TimeOctober 2024 5:26pm[place] [address] [employer] History & Physical Signed Patient: Barbra Claros MR#: [id number] : 1995 Acct:[id number] Age/Sex: 29 / F Adm Date: 5 Loc: Room: [address] [place] [address] Type: ADM IN Attending Dr: Michael Gurrola MD Copies to: NON STAFF MICHAEL GURROLA MD~ Date of Service: 03/24/2025 CLIENT SUPPORT CONSULTANT - HPI History of Present Illness Planned Procedure: Operation Date: 03/24/25 17:15 Proposed Procedures p OR Laparoscopic Ovarian Cyst, Open Technique(Not Applicable) - Michael Gurrola MD HPI: Patient is a 29-year-old female well-known to me. She has chronic right lower quadrant pain but nowis having acute pain on top of the chronic pain. She reported to [facility] 4 days ago and was transferred to mi at [facility]. Examination revealed that she did not have an acute abdomen. She was discharged home on pain management and she was scheduled for surgery on April 01. Unfortunately she returned to the emergency room at [facility] yesterday. She had another pelvic ultrasound done which showed her right ovarian cyst to be decreasing in size. However ultrasound showed no flow to the ovary causing concern for possibility of ovarian torsion. She was transferred to mi at [facility] again. She expresses a firm desire to proceed with surgery at this time and so arrangements have been made. [facility] Medical History (Updated 03/23/25 @ 22:43 [...] mg PO DAILY #15 caps 12/06/24 [Rx Yjvxuoekq20/05/25] buspirone 15 mg tablet 15 mg PO [...] PRN PRN Reason: Flush Stop: 03/24/26 11:56 CLIENT SUPPORT CONSULTANT - Exam Physical Exam Vital signs: Temp [...] stethoscope she does demonstrate a pain response CLIENT SUPPORT CONSULTANT - A/P (1) Chronic right lower quadrant [...] right ovary. Documented By: MICHAEL GURROLA MD 03/24/25 8216 Signed By: <Electronically signed by MD MICHAEL GURROLA> 03/24/25 1726 [facility] Work Phone: 1(411) 486-805010-06-2025 History and physical noteSarah [place] [id number] [employer] History & Physical Signed Patient: Barbra Claros MR#: [id number] : 1995 Acct:[id number] Age/Sex: 29 / F Adm Date: 5 Loc: Room: [address] [place] [address] Type: ADM IN Attending Dr: Michael Gurrola MD Copies to: NON STAFF MICHAEL GURROLA MD~ Date of Service: 03/24/2025 CLIENT SUPPORT CONSULTANT - HPI History of Present Illness Planned Procedure: Operation Date: 03/24/25 17:15 Proposed Procedures p OR Laparoscopic Ovarian Cyst, Open Technique(Not Applicable) - Michael Gurrola MD HPI: Patient is a 29-year-old female well-known to mi. She has chronic right lower quadrant pain but nowis having acute pain on top of the chronic pain. She reported to [facility] 4 days ago and was transferred to mi at [facility]. Examination revealed that she did not have an acute abdomen. She was discharged home on pain management and she was scheduled for surgery on April 01. Unfortunately she returned to the emergency room at [facility] yesterday. She had another pelvic ultrasound done which showed her right ovarian cyst to be decreasing in size. However ultrasound showed no flow to the ovary causing concern for possibility of ovarian torsion. She was transferred to mi at [facility] again. She expresses a firm desire to proceed with surgery at this time and so arrangements have been made. [facility] Medical History (Updated 03/23/25 @ 22:43 [...] mg PO DAILY #15 caps 12/06/24 [Rx Mdqguwpjs80/05/25] buspirone 15 mg tablet 15 mg PO [...] PRN PRN Reason: Flush Stop: 03/24/26 11:56 CLIENT SUPPORT CONSULTANT - Exam Physical Exam Vital signs: Temp [...] stethoscope she does demonstrate a pain response CLIENT SUPPORT CONSULTANT - A/P (1) Chronic right lower quadrant [...] By: MICHAEL GURROLA MD 03/24/251715 Signed By: 03/24/251725 [facility]10-02-2025 History and physical note Author MICHAEL GURROLA [facility] HospitalNote Date/TimeOctober 2024 6:12[place] [address] [employer] History & Physical Signed Patient: Barbra Claros MR#: [id number] : 1995 Acct:[id number] Age/Sex: 29 / F Adm Date: 5 Loc: Room: [address] [place] [address] Type: ADM IN Attending Dr: Michael Gurrola MD Copies to: NON STAFF MICHAEL GURROLA MD~ Date of Service: 03/20/2025 CLIENT SUPPORT CONSULTANT - HPI History of Present Illness Chief Complaint: Pain HPI: Patient is a 29-year-old female well-known to me. She suffers chronic intermittent right lower quadrant pain for more than the last year. She has hada hysterectomy because of this pain and yet it didnot improve. Unfortunately that surgery was complicated by a pelvic abscess requiring a 2-week hospital stay in [place]. Sometime following that she presented to another [...] does have an appetite. She reported to [facility] where CAT scan and ultrasound showed a 4 cm cyst on the right ovary that has a hemorrhagic appearanceto it. CLIENT SUPPORT [facility] however no anesthesiologist was available so it was requested that the patient be transferred. As the patient is my patient and I excepted her care. Overnight the patient has had no episodes. She has had restful sleep and has not required any pain medications through the night. [facility] Medical History (Updated 03/20/25 @ 06:10 [...] mg PO DAILY #15 caps 12/06/24 [Rx Bqpicvwue98/01/25] buspirone 15 mg tablet 15 mg PO [...] 1.5 Mg Capsule) 4.5 mg PO DAILY COUNT INCLUDES THE [facility] Stop: 03/20/26 08:59 Hydromorphone HCl (Hydromorphone [...] 150 Mg Tablet) 150 mg PO HS COUNT INCLUDES THE [facility] Stop: 03/19/26 21:59 Last Admin: 03/19/25 23:05 Dose: 150 mg Venlafaxine HCl (Venlafaxine Er 37.5 Mg Cap.Er.24h) 37.5 mg PO DAILY YEN Stop: 03/20/26 08:59 Venlafaxine HCl (Venlafaxine Er 150 Mg Cap.Er.24h) 150 mg PO DAILY COUNT INCLUDES THE [facility] Stop: 03/20/26 08:59 CLIENT SUPPORT CONSULTANT - Exam Physical Exam Vital signs: Resp [...] the abdomen without the stethoscope she winces CLIENT SUPPORT CONSULTANT - A/P (1) Chronic right lower quadrant [...] <Electronically signed by MD MICHAEL GURROLA> 03/20/25611 [facility] Work Phone: 1(509) 908-598510-02-2025 [place] [address] [employer]OX STR[employer]PER History & Physical Signed Patient: Barbra Claros MR#: [id number] : 1995 Acct:[id number] Age/Sex: 29 / F Adm Date: 5 Loc: Room: [address] [place] [address] Type: ADM IN Attending Dr: Michael Gurrola MD Copies to: NON STAFF MICHAEL GURROLA MD~ Date of Service: 03/20/2025 CLIENT SUPPORT CONSULTANT - HPI History of Present Illness Chief Complaint: Pain HPI: Patient is a 29-year-old female well-known to me. She suffers chronic intermittent right lower quadrant pain for more than the last year. She has hada hysterectomy because of this pain and yet it didnot improve. Unfortunately that surgery was complicated by a pelvic abscess requiring a 2-week hospital stay in [place]. Sometime following that she presented to another [...] does have an appetite. She reported to [facility] where CAT scan and ultrasound showed a 4 cm cyst on the right ovary that has a hemorrhagic appearanceto it. CLIENT SUPPORT CONS[facility] however no anesthesiologist was available so it was requested that the patient be transferred. As the patient is my patient and I excepted her care. Overnight the patient has had no episodes. She has had restful sleep and has not required any pain medications through the night. [facility] Medical History (Updated 03/20/25 @ 06:10 [...] mg PO DAILY #15 caps 12/06/24 [Rx Qfopgerst21/01/25] buspirone 15 mg tablet 15 mg PO [...] 15 Mg Tablet) 15 mg PO TID COUNT INCLUDES THE [facility] Stop: 03/19/26 21:59 Last Admin: 03/19/25 23:05 Dose: 15 mg Cariprazine (Cariprazine *Nf* 1.5 Mg Capsule) 4.5 mg PO DAILY COUNT INCLUDES THE [facility] Stop: 03/20/26 08:59 Hydromorphone HCl (Hydromorphone [...] mg PO DAILY YEN Stop: 03/20/26 08:59 CLIENT SUPPORT CONSULTANT - Exam Physical Exam Vital signs: Resp [...] the abdomen without the stethoscope she winces CLIENT SUPPORT CONSULTANT - A/P (1) Chronic right lower quadrant [...] MICHAEL GURROLA MD 03/20/25602 Signed By: 03/20/25611 [facility]08-08-2025 Hospital Discharge instructions Additional Instructions Important Contact Information You can call [facility] at [phone] any time day or night if you have emergent questions or question regarding discharge instructions. If at any time you are feeling an increase in your psychiatric symptoms, call your physician or behavioral healthcare provider. If any time you have thoughts of harming yourself or others contact one of the following: Call (available 09/01) Crisis Text Line (available 09/01) text 4HOPE to [phone] [employer] Line (available 8 a.m. Midnight) call [phone] ([phone]) [facility] Work Phone: 1(538) 842-722508-06-2025 Evaluation note* Diagnosis Onset Date Resolution Status Admit Date Major depressive disorder, recurrent acuteAugust 2024 4:22pmSuicidal ideationresolvedAugust 2024 4:22pm Abdominal paininactiveAugust 2024 2:02pmBacterial pharyngitisacute February 24, 2025 9:56amUTI (urinary tract infection)acuteSeptember 2024 9:56amViral URIacuteSept2024 9:56amChronic right lower quadrant pain resolvedOctober 2024 9:59pmOvarian cystresolvedOctober 2024 9:59pm Chronic right lower quadrant painresolvedOctober 2024 10:09pmOvarian cyst resolvedOctober 2024 10:09pm [facility] Work Phone: 1(172) 892-740907-16-2025 Hospital Discharge instructions Additional Instructions Important Contact Information You can call [facility] at [phone] any time day or night if you have emergent questions or question regarding discharge instructions. If at any time you are feeling an increase in your psychiatric symptoms, call your physician or behavioral healthcare provider. If any time you have thoughts of harming yourself or others contact one of the following: Call (available 09/01) Crisis Text Line (available 09/01) text [employer] to [phone] [employer] (available 8 a.m. Midnight) call [phone] ([phone]) [facility] Work Phone: 1(102) 815-406207-14-2025 Evaluation note* Diagnosis Onset Date Resolution Status Admit Date Pain in tooth acuteJuly 2024 11:05pmDepression with suicidal ideationresolvedJuly 2024 11:05pmSuicidal ideationresolvedJuly 2024 11:05pmMajor depressive disorder, recurrentacuteAugust 2024 4:22pmSuicidal ideationresolvedAugust 2024 4:22pmAbdominal paininactiveAugust 2024 2:02pmBacterial pharyngitisacuteSeptember 2024 9:56amUTI (urinary tract infection)acute February 24, 2025 9:56amViral URIacuteSeptember 2024 9:56amChronic right lower quadrant painacuteOctober 2024 9:59pmOvarian cystacuteOctober 2024 9:59pm [facility] Work Phone: 1(322) 371-392807-14-2025 Evaluation note* Diagnosis Onset Date Resolution Status Admit Date Pain in tooth acuteJuly 2024 11:05pmDepression with suicidal ideationresolvedJuly 2024 11:05pmSuicidal ideationresolvedJuly 2024 11:05pmMajor depressive disorder, recurrentacuteAugust 2024 4:22pmSuicidal ideationresolvedAugust 2024 4:22pmAbdominal paininactiveAugust 2024 2:02pmBacterial pharyngitisacuteSeptember 2024 9:56amUTI (urinary tract infection)acute February 24, 2025 9:56amViral URIacuteSeptember 2024 9:56amChronic right lower quadrant painacuteOctober 2024 9:59pmOvarian cystacuteOctober 2024 9:59pmChronic right lower quadrant painacuteOctober 2024 10:09pm Ovarian cystacuteOctober 2024 10:09pm [facility] Work Phone: 1(485) 924-873606-18-2025 Evaluation note* Diagnosis Onset Date Resolution Status Admit Date Deliberate self-cutting acuteJune 2024 10:00pmHomicidal ideationacuteJune 2024 10:00pm Depression with suicidal ideationresolvedJune 2024 10:00pmPain in tooth acuteJuly 2024 11:05pmDepression with suicidal ideationresolvedJuly 2024 11:05pmSuicidal ideationresolvedJuly 2024 11:05pmMajor depressive disorder, recurrentacuteAugust 2024 4:22pmSuicidal ideationresolvedAugust 2024 4:22pmAbdominal paininactiveAugust 2024 2:02pm [facility] Work Phone: 1(218) 843-193905-31-2025 [place] [address] Discharge Summary Signed Patient: Barbra Claros MR#: [id number] : 1995 Acct:[id number] Age/Sex: 29 / F Adm Date: 5 Loc: Room: [address] [place] [address]: Dashawn Moreno MD Copies to: [...] she got out of the [facility] 3 days ago. She noted that [...] going to relapse or end up in senior living. She did not exhibit any behavior concerningfor [...] 15 Days Qty: 15 1RF Follow Up: [facility] [Outside] (was referred at last admission) [facility] [place] [Outside] (for any urgent medical needs) Exam Physical Exam Vital Signs: Temp Pulse Resp BP Pulse Ox O2 Del Method 97.7 F 102 H 15 122/87 99 Room Air 11/16/24 07:30 11/16/24 07:30 11/16/24 07:30 11/16/24 07:30 11/16/24 07:30 11/16/24 09:00 Documented By: Dashawn Moreno MD 11/16/24 1247 Signed By: 11/16/24 1251 [facility]05-30-2025 History and physical note Author Dashawn Moreno [facility] Date/TimeMay 2024 11:[address] [address] Psychiatry H&P Signed Patient: Barbra Claros MR#: [id number] : 1995 Acct:[id number] Age/Sex: 29 / F Adm Date: 5 Loc: 1S Room: [address] [place] [address] Type: ADM IN Attending Dr: Dashawn Moreno [...] she got out of the [facility] 3 days ago. She noted that [...] confirmed this withthe resident as noted below. [facility] Medical History (Updated 11/15/24 @ 05:33 [...] Appearance Clear Urine pH 7.0 Ur Specific [place] 1.031 H Urine Protein 20 H Urine [...] <Electronically signed by DO ARABELLA Munoz> 11/15/24 1057 [facility] Work Phone: 1(716) 570-791305-30-2025 [place] [address] Psychiatry H&P Signed Patient: Barbra Claros MR#: [id number] : 1995 Acct:[id number] Age/Sex: 29 / F Adm Date: 5 Loc: Room: [address] [place] [address] Type: ADM IN Attending Dr: Dashawn Moreno [...] confirmed this withthe resident as noted below. [facility] Medical History (Updated 11/15/24 @ 05:33 [...] Appearance Clear Urine pH 7.0 Ur Specific [place] 1.031 H Urine Protein 20 H Urine [...] By: 11/15/24 1157 11/15/24 1059 [facility]05-30-2025 Evaluation note* Diagnosis Onset Date Resolution Status Admit Date Major depressive disorder resolvedMay 2024 11:39pmSuicidal ideationresolvedMay 2024 11:39pm Deliberate self-cuttingacuteJune 2024 10:00pmHomicidal ideationacuteJune 2024 10:00pmDepression with suicidal ideationresolvedJune 2024 10:00pmPain in toothacuteJuly 2024 11:05pmDepression with suicidal ideationresolvedJuly 2024 11:05pmSuicidal ideationresolvedJuly 2024 11:05pmMajor depressive disorder, recurrentacuteAugust 2024 4:22pmSuicidal ideationresolvedAugust 2024 4:22pmAbdominal paininactiveAugust 2024 2:02pm [facility] Work Phone: 1(602) 767-573105-25-2025 [id number] Discharge Summary Signed Patient: Barbra Claros MR#: [id number] : 1995 Acct:[id number] Age/Sex: 29 / F Adm Date: 5 Loc: Room: [address] [place] [address]: Kit Gutierrez MD Copies to: [...] She was at an appointment with her ob-shoe lay out planner provider and he asked her to go [...] from her significant other, difficulty with her adamaris gonzales's father, and toxic relationships with her [...] who she listed as a support and personal insurance advisor. She was agreeable to treatment and hopes [...] Specifically last Monday, she was sent to [facility] due to panic attacks at which time they suggested that she voluntarily admit herself to [address] but said she was talked out of it by her mother. Has been wanting to increase her venlafaxine dose recently. Tells me that she does not have a PCP or mental provider in the community but her medications are managed by her tetryl blender operator Dr. Gurrola. This morning she denies SI, [...] QAM Patient Comments: with breakfast Follow Up: [facility] [Outside] (new referral) [facility] [place] [Outside] (for any urgent medical needs) Exam Physical Exam Vital Signs: Temp Pulse Resp BP Pulse Ox O2 Del Method 98.2 F 95 16 119/72 97 Room Air 11/09/24 19:59 11/09/24 19:59 11/09/24 19:59 11/09/24 19:59 11/09/24 19:59 11/09/24 21:00 Documented By: Kit Gutierrez MD 5 0730 Signed By: 11/10/24 0731 [facility]05-24-2025 Progress note Author Kit fox [facility]Note Date/TimeMay 2024 7:31[place] [address] Psychiatry Progress Note Signed Patient: Barbra Claros MR#: [id number] : 1995 Acct:[id number] Age/Sex: 29 / F Adm Date: 5 Loc: Room: [address] [place] [address] Type : ADM IN Attending Dr: Kit [...] 20 121/84 98 Room Air 11/08/24 23:30 05/23/25 23:30 11/08/24 23:30 11/08/24 23:30 11/08/24 [...] signed by Kit Gutierrez MD> 11/09/24 0731 [facility] Work Phone: 1(245) 535-729205-24-2025 [place] [address] Psychiatry Progress Note Signed Patient: Barbra Claros MR#: [id number] : 1995 Acct:[id number] Age/Sex: 29 / F Adm Date: 5 Loc: Room: [address] [place] [address] Type : ADM IN Attending Dr: Kit [...] 0729 Signed By: 11/09/24 0731 [facility]05-23-2025 Progress note Author Kit fox [facility] HospitalNote Date/TimeMay 2024 1:[place] [address] Psychiatry Progress Note Signed Patient: Barbra Claros MR#: [id number] : 1995 Acct:[id number] Age/Sex: 29 / F Adm Date: 5 Loc: 1S Room: [address] [place] [address] Type : ADM IN Attending Dr: Kit [...] <Electronically signed by Kit Gutierrez MD> 11/08/[address] [place] [address] Work Phone: 1(722) 135-629105-23-2025 [place] [address] Psychiatry Progress Note Signed Patient: Barbra Claros MR#: [id number] : 1995 Acct:[id number] Age/Sex: 29 / F Adm Date: 5 Loc: Room: [address] [place] [address] Type : ADM IN Attending Dr: Kit [...] 1016 Signed By: 11/08/24 1342 [facility]05-22-2025 History and physical note Author Kit fox [facility] HospitalNote Date/TimeMay 2024 1:[place] [address] Psychiatry H&P Signed Patient: Barbra Claros MR#: [id number] : 1995 Acct:[id number] Age/Sex: 29 / F Adm Date: 5 Loc: Room: [address] [place] [address] Type: ADM IN Attending Dr: Kit Gutierrez [...] She was at an appointment with her ob-shoe lay out planner provider and he asked her to go [...] from her significant other, difficulty with her adamaris gonzales's father, and toxic relationships with her [...] barbra attends AA meetings and has a sponsorwho she listed as a support and personal insurance advisor. She was agreeable to treatment and hopes [...] Specifically last Monday, she was sent to [facility] due to panic attacks at which time they suggested that she voluntarily admit herself to [address] but said she was talked out of it by her mother. Has been wanting to increase her venlafaxine dose recently. Tells me that she does not have a PCP or mental provider in the community but her medications are managed by her tetryl blender operator Dr. Gurrola. This morning she denies SI, HI, delusions. 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 History History of partial hysterectomy [...] Appearance Clear Urine pH 5.5 Ur Specific [place] 1.015 Urine Protein Negative Urine Glucose (UA) [...] <Electronically signed by Kit Gutierrez MD> 11/07/24 [facility]6 [facility] Work Phone: 1(262) 442-391405-22-2025 [place] [address] Psychiatry H&P Signed Patient: Barbra Claros MR#: [id number] : 1995 Acct:[id number] Age/Sex: 29 / F Adm Date: 5 Loc: Room: [address] [place] [address] Type: ADM IN Attending Dr: Kit Gutierrez [...] She was at an appointment with her ob-shoe lay out planner provider and he asked her to go [...] from her significant other, difficulty with her adamaris gonzales's father, and toxic relationships with her [...] who she listed as a support and personal insurance advisor. She was agreeable to treatment and hopes [...] Specifically last Monday, she was sent to [facility] due to panic attacks at which time they suggested that she voluntarily admit herself to [facility] but said she was talked out of it by her mother. Has been wanting to increase her venlafaxine dose recently. Tells me that she does not have a PCP or mental provider in the community but her medications are managed by her tetryl blender operator Dr. Gurrola. This morning she denies SI, HI, delusions. 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 [facility] Ovarian cyst removal of cyst in [...] List clean-up per request of Phys. [facility] Surgical History History of partial hysterectomy [...] Appearance Clear Urine pH 5.5 Ur Specific [place] 1.015 Urine Protein Negative Urine Glucose (UA) [...] 1121 Signed By: 11/07/24 1312 [facility]05-22-2025 Evaluation note* Diagnosis Onset Date Resolution Status Admit Date Major depressive disorder acuteMay 2024 1:28amSuicidal ideationacuteMay 2024 1:28am [facility] Work Phone: 1(652) 630-608705-22-2025 Evaluation note* Diagnosis Onset Date Resolution Status Admit Date Major depressive disorder acuteMay 2024 1:28amSuicidal ideationacuteMay 2024 1:28amMajor depressive disorderacuteMay 2024 11:39pmSuicidal ideationacuteMay 2024 11:39pm [facility] Work Phone: 1(438) 853-254105-22-2025 Evaluation note* Diagnosis Onset Date Resolution Status Admit Date Major depressive disorder resolvedMay 2024 1:28amSuicidal ideationresolvedMay 2024 1:28amMajor depressive disorderresolvedMay 2024 11:39pmSuicidal ideationresolvedMay 2024 11:39pm [facility] Work Phone: 1(657) 462-837005-22-2025 Evaluation note* Diagnosis Onset Date Resolution Status Admit Date Major depressive disorder resolvedMay 2024 1:28amSuicidal ideationresolvedMay 2024 1:28amMajor depressive disorderresolvedMay 2024 11:39pmSuicidal ideationresolvedMay 2024 11:39pmDeliberate self-cuttingacuteJune 2024 10:00pmDepression with suicidal ideationacuteJune 2024 10:00pmHomicidal ideationacuteJune 2024 10:00pmPain in toothacuteJuly 2024 11:05pmSuicidal ideation acuteJuly 2024 11:05pm [facility] Work Phone: 1(539) 212-199705-22-2025 Evaluation note* Diagnosis Onset Date Resolution Status Admit Date Major depressive disorder resolvedMay 2024 1:28amSuicidal ideationresolvedMay 2024 1:28amMajor depressive disorderresolvedMay 2024 11:39pmSuicidal ideationresolvedMay 2024 11:39pmDeliberate self-cuttingacuteJune 2024 10:00pmDepression with suicidal ideationacuteJune 2024 10:00pmHomicidal ideationacuteJune 2024 10:00pmDepression with suicidal ideationacuteJuly 2024 11:05pm Pain in toothacuteJuly 2024 11:05pmSuicidal ideationacuteJuly 2024 11:05pm [facility] Work Phone: 1(218) 793-970505-22-2025 Evaluation note* Diagnosis Onset Date Resolution Status Admit Date Major depressive disorder resolvedy 2024 1:28amSuicidal ideationresolvedMay 2024 1:28amMajor depressive disorderresolvedMay 2024 11:39pmSuicidal ideationresolvedMay 2024 11:39pmDeliberate self-cuttingacuteJune 2024 10:00pmHomicidal ideationacuteJune 2024 10:00pmDepression with suicidal ideationresolved December 03, 2024 10:00pmPain in toothacuteJuly 2024 11:05pmDepression with suicidal ideationresolvedJuly 2024 11:05pmSuicidal ideationresolvedJuly 2024 11:05pm [facility] Work Phone: 1([phone]) 783-807405-22-2025 Evaluation note* Diagnosis Onset Date Resolution Status Admit Date Major depressive disorder resolvedy 2024 1:28amSuicidal ideationresolvedMay 2024 1:28amMajor depressive disorderresolvedMay 2024 11:39pmSuicidal ideationresolvedMay 2024 11:39pmDeliberate self-cuttingacuteJune 2024 10:00pmHomicidal ideationacuteJune 2024 10:00pmDepression with suicidal ideationresolved December 03, 2024 10:00pmPain in toothacuteJuly 2024 11:05pmDepression with suicidal ideationresolvedJuly 2024 11:05pmSuicidal ideationresolvedJuly 2024 11:05pmMajor depressive disorder, recurrentacuteAugust 2024 4:22pmSuicidal ideationacuteAugust 2024 4:22pm [facility] Work Phone: 1(615) 867-806305-22-2025 Evaluation note* Diagnosis Onset Date Resolution Status Admit Date Major depressive disorder resolvedMay 2024 1:28amSuicidal ideationresolvedMay 2024 1:28amMajor depressive disorderresolvedMay 2024 11:39pmSuicidal ideationresolvedMay 2024 11:39pmDeliberate self-cuttingacuteJune 2024 10:00pmHomicidal ideationacuteJune 2024 10:00pmDepression with suicidal ideationresolved December 03, 2024 10:00pmPain in toothacuteJuly 2024 11:05pmDepression with suicidal ideationresolvedJuly 2024 11:05pmSuicidal ideationresolvedJuly 2024 11:05pmMajor depressive disorder, recurrentacuteAugust 2024 4:22pmSuicidal ideationresolvedAugust 2024 4:22pmAbdominal paininactive February 08, 2025 2:02pm [facility] Work Phone: 1(289) 224-132605-21-2025 History of Present illness Narrative* Michael Gurrola [...] Review Audit Reviewed by Fe Silveira MA (Superintendent Job) on 11/06/24 at 1553 Medication Order Taking? Sig Documenting Provider Last Dose Status hydrOXYzine HCl (Atarax) 50 MG tablet [id number] Yes TAKE 1 TABLET BY MOUTH THREE TIMES DAILY NEEDED FOR ITCHING Michael Gurrola MD Active venlafaxine XR (Effexor XR) 75 MG 24 hr capsule [id number] Take 75 mg by mouth in the [...] have encouraged the pt to go to [facility] and request to speak with a mental health counselor. I suspect she needs to be admitted. She will need high school social science teacher to assist with childcare. She has assured me she will go No orders of the defined types were placed in this encounter. documented in this encounterSoutheast Missouri Community Treatment [id number] History of Present illness Narrative* Michael Gurrola MD - 09/17/2024 11:45 AM EDT Pt had 4days of relief following last injection. By Monday morning the pain returned with intensityand she went to [place] [facility]. 12cc lidocaine again infiltrated into inferior extent of scar. Nevaeh well ICD-10-CM 1. Abdominal pain in female R10.9 2. Pelvic pain in female R10.[address] Reyes, pain specialist, to eval for potential nerve block documented in this encounterSoutheast Missouri Community Treatment [id number] History of Present illness Narrative* Michael Gurrola [...] Review Audit Reviewed by Fe Silveira MA (Superintendent Job) on 09/12/24 at 1302 Medication Order Taking? Sig Documenting Provider Last Dose Status venlafaxine XR (Effexor XR) 75 MG 24 hr capsule [id number] Take 75 mg by mouth in the morning. Take with meals. Michael Gurrola MD Active Allergies Allergen Reactions Chlorpheniramine Anaphylaxis and Other Dextromethorphan Other Dm-Apap-Cpm Angioedema and Swelling Throat Swells Pseudoephedrine Other Past Medical History: Diagnosis Date ADHD (attention deficit hyperactivity disorder) ([facility]) Anxiety History of being hospitalized blood transfusion, bronchitis, pneumonia Ovarian cyst PTSD (post-traumatic stress disorder) ([facility]) Past Surgical History: Procedure Laterality Date COSMETIC [...] placed in this encounter. documented in this encounterSoutheast Missouri Community Treatment [id number] History of Present illness Narrative* Michael Gurrola [...] of a pelvicabscess. She was transferred to [place]. She underwent CT guided drainage. After 2 weeks sh recovered, but her RLQ pain continues. In 04/11, she was seen at [facility] and CT showed air in the [...] into the back She has been to [facility] twice in last week. Sono shows [...] Review Audit Reviewed by Fe Silveira MA (Superintendent Job) on 07/10/24 at 1424 Medication Order Taking? Sig Documenting Provider Last Dose Status Discontinued 07/10/24 1424 Discontinued 07/10/24 142 venlafaxine XR (Effexor XR) 75 MG 24 hr capsule [id number] Take 75 mg by mouth in the morning. Take with meals. Michael Gurrola MD Active Allergies Allergen Reactions Chlorpheniramine Anaphylaxis and Other Dextromethorphan Other Dm-Apap-Cpm Angioedema and Swelling Throat Swells Pseudoephedrine Other Past Medical History: Diagnosis Date ADHD (attention deficit hyperactivity disorder) ([facility]) Anxiety History of being hospitalized blood transfusion, bronchitis, pneumonia Ovarian cyst PTSD (post-traumatic stress disorder) ([facility]) Past Surgical History: Procedure Laterality Date COSMETIC [...] placed in this encounter. documented in this [facility]02-11-2025 Telephone encounter Note* Telephone Encounter - Irena Damon - 07/30/2024 1:22 PM EST Pt called and needs to reschedule her US and OV with [facility], she currently has RSV and the Flu in her house, she now has her records, best call back number is [phone] [facility] [id number] Miscellaneous Notes* Telephone Encounter - Irena [facility] - 07/30/2024 1:22 PM EST Pt called and needs to reschedule her US and OV with BJP, she currently has RSV and the Flu in her house, she now has her records, best call back number is [phone] documented in this [facility]01-22-2025 History of Present illness Narrative* Michael Gurrola [...] of a pelvicabscess. She was transferred to [place]. She underwent CT guided drainage. After 2 weeks sh recovered, but her RLQ pain continues. In 04/11, she was seen at [facility] and CT showed air in the peritoneum. She had exploratory laparotomy and revision of the vag cuff. I e reviewed Dr Bowser op note. He closed the vag apex. The right ovary was shrouded by adhesion which were lysed, thereby freeingthe ovary. He descibes the ovary as normal. Since then, she cont to have daily RLQ pain that radiates down the leg and into the back [address] [facility] shows a 6cm complex/septated right [...] Review Audit Reviewed by Fe Silveira MA (Superintendent Job) on 07/10/24 at 1424 Medication Order Taking? Sig Documenting Provider Last Dose Status Discontinued 07/10/24 1424 Discontinued 07/10/24 1424 venlafaxine XR (Effexor XR) 75 MG 24 hr capsule [id number] Take 75 mg by mouth in the morning. Take with meals. Michael Gurrola MD Active Allergies Allergen Reactions Chlorpheniramine Anaphylaxis and Other Dextromethorphan Other Dm-Apap-Cpm Angioedema and Swelling Throat Swells Pseudoephedrine Other Past Medical History: Diagnosis Date ADHD (attention deficit hyperactivity disorder) ([facility]) Anxiety History of being hospitalized blood transfusion, bronchitis, pneumonia Ovarian cyst PTSD (post-traumatic stress disorder) ([facility]) Past Surgical History: Procedure Laterality Date COSMETIC [...] placed in this encounter. documented in this encounterSoutheast Missouri Community Treatment [id number] Hospital Discharge instructions* Discharge Instructions* Corrine Guerra RN - 04/16/2024 11:06 AM EDT Report the following signs or any questions regarding your physical condition to your surgeon immediately: Dr. Soriano @ [phone] Excessive swelling of, or around the wound [...] at most local grocery stores, pharmacies, and [employer]st[employer]. If you have any questions about your diet or nutrition, call the hospital and ask for the dietitian. General diet as tolerated * Attachments The following attachments cannot be sent through Care Everywhere. * Appendectomy: Post-op (French) * Surgical Site Infections: Prevention: General Info (French) documented in this encounterBon [facility] History of Present illness Narrative* Julia [...] loss Fluid Accumulation: No significant fluid accumulation Executive Creative Director Strength: Not Performed Nutrition Assessment: Continued increased [...] Measures: Height: 160 cm (5' 3 ) [place] Body Weight (IBW): 115 lbs (52 kg) [...] Used for Energy Requirements: Current Energy (kcal/day): 3594-4561 (20-23.) Weight Used for Protein Requirements: [place] Protein (g/day): 68-78 (1.3-1.5) Method Used for [...] Nutrition Supplement JULIA CAUSEY RD, LD Contact: [id number] * Ivy Schmid RN - 04/15/2024 10:15 [...] substance(s) Nutrition status: at risk for malnutrition Mechanic Foreman consult initiated Hospital Prophylaxis: DVT: SCD's Stress Ulcer: Not indicated at this time Disposition: Shared decision making: All test results, treatment options and disposition options were discussed with the patient today Social determinants of health that may impact management: none Code status: Full Code Disposition: Discharge plan is pending [facility] Advanced Care Planning documentation: [...] the patient's medical record. [DOES NOT SATISFY [facility] PERFORMANCE] Brandee Rivera APRN - IMPRESS ASSOCIATE , 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, BANK WORKER-C Hospitalist Medicine 04/15/2024, 8:33 AM Associated attestation - Nicolette Wyman MD - 04/15/2024 7:18 PM EDT Images from the original note were not included. [address], [address] Attestation Patient: Barbra Claros Date of Admission: 04/10/2024 6:08 PM Hospital Day # 5 Date of Evaluation: 04/15/2024 I personally evaluated and examined the patient [id number] in conjunction with the PA/BANK WORKER and agree with the management and dispostition of the patient. Please see the PA/BANK WORKER's note for full details.My hunter findings [...] with the plan as outlined in the BANK WORKER/PA's note Disposition: Discharge plan is pending Please note that this chart was generated using voice recognition Vendlyon dictation software. Although every effort was made to ensure the accuracy of this automated manager nuclear, some errors in manager nuclear may have occurred. Nicolette Wyman MD 04/15/2024 [...] Rodriguez RN - 04/14/2024 4:30 PM EDT Market Risk Specialist to patients bedside at this time due to call light going off. Upon arrival at bedside, patient is sitting on the side of the bed holding her abdomen and is in tears and states she is in a lot of pain, rated 10/10. PRN dilaudid given per patients request. Market Risk Specialist called Dr. Wyman and updated him on patients condition, order received for abdominal x-ray. Care ongoing. * Ayana Rodriguez RN - 04/14/2024 2:01 PM EDT Market Risk Specialist to patients bedside at this time to complete afternoon assessment. When field underwriter arrived at bedside, patient was in the bathroom standing over toilet and stated she felt like she might get sick.Market Risk Specialist assisted patient back to the bed and gave her a bucket. Patient states she tried to eat a few bites of her lunch and that is when she became very nauseous. Market Risk Specialist called Dr. Soriano who state s to [...] tender. Patient states she is passing gas. Market Risk Specialist assessed incision which is dry and intact [...] not getting nauseous with the clear liquids. Market Risk Specialist called Dr. Soriano about patients request and states her diet can be advanced to full liquid. Order placed for full liquid diet. * Kat Dubose OTA - 04/14/2024 11:03 AM EDT Occupational Therapy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 Liquids [] Chlorhexidene DOS Patient Needs [x] HCG [] Blood Sugar [] PT/INR [] T&S Do you have any metal allergies? [] Yes [x] No If yes, to what metals: Patient instructed on the pre-operative, intra-operative, and post-operative process? Yes Medication instructions reviewed with patient? Yes documented in this encounterBON [facility]23 NoteEducation Materials Neurology Migraine Headache A [...] these instructions at home: Medicines ? Take ucxp-hah-abrmisc and prescription medicines only as told by your doctor. ? Ask your doctor if the medicine prescribed to you: ? Requires you to avoid driving or using heavy machinery. ? Can cause trouble pooping (constipation). You may need to take these steps to prevent or treat trouble pooping: ? Drink enough fluid to keep your pee (urine) pale yellow. ? Take isbl-reh-zyqnici or prescription medicines. ? Eat foods that [...] headache that is differe (more content not included)...[facility] [id number] NotePatient Education Materials Follows:Disease Viral Illness, Adult [...] Medicines to relieve symptoms. These can include ctaq-inv-rdgzzdz medicine for pain and fever, medicines for cough or congestion, and medicines to relieve diarrhea. ? Antiviral medicines. These medicines are available only for certain types of viruses. Some viral illnesses can be prevented with vaccinations. A common example is the flu shot. Follow these instructions at home: Medicines ? Take fhvc-ilp-hhjaxtg and prescription medicines only as told by [...] at least 20 secon (more content not included)...[facility] [id number] NoteEducation Materials Obstetrics and Gynecology Menorrhagia Menorrhagia [...] these instructions at home: Medicines ? Take wvjr-zvf-uutyfbf and prescription medicines only as told by [...] your pee (urine) pale yellow. ? Take zkjd-slb-fseuuhg or prescription medicines. ? Eat foods that [...] given medicines or have surgery. ? Take hwaz-jmr-uisokct and prescription medicines only as told by [...] care provider. Document Revised: (more content not included)...[facility] HospitalPfrbwezl11-24-7186 Progress note Author Sarah Egan [facility] February 27, 2023 10:42amNote Date/TimeSeptember 2022 7:04[place] [address] [employer]OX [employer] Progress Note Signed Patient: Barbra Claros MR#: [id number] : 1995 Acct:[id number] Age/Sex: 27 / F Adm Date: 3 Loc: Room: [address] [place] [address] Type: ADM IN Attending Dr: Jonathan Monahan [...] sounds. Fundus is firm 3 cm below theumbilicus. Extremities: No swelling, cyanosis, clubbing. Peripheral pulses [...] % (Auto) 73.1, Lymph % (Auto) 21.4, [place] % (Auto) 4.7, Eos % (Auto) 0.4, Baso % (Auto) 0.4, Nucleat RBC Rel Count 0.1, Neut# (Auto) 8.4 H, Lymph # (Auto) 2.5, [place] # (Auto) 0.5, Eos # (Auto) 0.0, Baso # (Auto) 0.0 02/26/23 13:30: Urine Opiates Screen Negative, Ur Barbiturates Screen Negative, Ur Phencyclidine Scrn Negative, Ur Amphetamines Screen Negative, U Benzodiazepines Scrn Negative, Urine Cocaine Screen Negative 02/26/23 13:30: Urine Color Yellow, Urine Appearance Cloudy A, Urine pH 6.5, Ur Specific [place] 1.016, Urine Protein Negative, Urine Glucose (UA) [...] signed by Sarah Egan DO> 02/27/23 1042 [facility] Work Phone: [phone] 800-113609-10-2023 Procedure [facility]07-31-2023 NotePatient Education Materials Follows: Shoulder Pain Many [...] strengthen the arm. General instructions ? Take bswv-avu-tixmhoz and prescription medicines only as told by [...] provider. Document Revised: 02/18/2022 Document Reviewed: 02/18/2022 [employer] Patient Education ? 2022 [employer] Shoulder Range of Motion Exercises Shoulder [...] side. 3. Keeping yo (more content not included)...[facility] HospitalJmlhjytn05-86-2601 Evaluation note* Encounter Date Diagnosis Assessment Notes Treatment Notes Treatment Clinical Notes Jun, Abdominal pain (ICD-10 - R10.9) Jun,3Crohn's disease (ICD-10 - K50.90) [employer] Other 11-08-2022 Evaluation note* Encounter Date Diagnosis Assessment Notes Treatment Notes Treatment Clinical Notes Apr, Nausea & vomiting (ICD-10 - R11. 2) Apr,bdominal pain (ICD-10 - R10.9) Apr,lood in stool (ICD-10 - K92.1) Apr,ysphagia (ICD-10 - R13.10) 08 Nov, 2022Diarrhea (ICD-10 - R19.7) [employer] Other Discharge summary Author Kit fox [facility] HospitalNote Date/TimeMay 2024 7:31[place] [id number] Discharge Summary Signed Patient: Barbra Claros MR#: [id number] : 1995 Acct:[id number] Age/Sex: 29 / F Adm Date: 5 Loc: 1S Room: [address] [place] [address]: Kit Gutierrez MD Copies to: [...] She was at an appointment with her ob-shoe lay out planner provider and he asked her to go [...] from her significant other, difficulty with her adamaris gonzales's father, and toxic relationships with her [...] barbra attends AA meetings and has a sponsorwho she listed as a support and personal insurance advisor. She was agreeable to treatment and hopes [...] Specifically last Monday, she was sent to [facility] due to panic attacks at which time they suggested that she voluntarily admit herself to 1 S[address] but said she was talked out of it by her mother. Has been wanting to increase her venlafaxine dose recently. Tells me that she does not have a PCP or mental provider in the community but her medications are managed by her tetryl blender operator Dr. Gurrola. This morning she denies SI, [...] self or stop treatment, but to call [facility], 911 or come to the nearest emergency [...] QAM Patient Comments: with breakfast Follow Up: [facility] [Outside] (new referral) [facility] [place] [Outside] (for any urgent medical needs) Exam Physical Exam Vital Signs: Temp Pulse Resp BP Pulse Ox O2 Del Method 98.2 F 95 16 119/72 97 Room Air 11/09/24 19:59 11/09/24 19:59 11/09/24 19:59 11/09/24 19:59 11/09/24 19:59 11/09/24 21:00 Documented By: Kit Gutierrez MD 5 0730 Signed By: <Electronically signed by Kit Gutierrez MD> 11/10/24 0731 [facility] Work Phone: Discharge summary Author Dashawn Moreno [facility] HospitalNote Date/TimeMay 2024 12:51[place] [address] Discharge Summary Signed Patient: Barbra Claros MR#: [id number] : 1995 Acct:[id number] Age/Sex: 29 / F Adm Date: 5 Loc: 1S Room: [address] [place] [address]: Dashawn Moreno MD Copies to: [...] she got out of the [facility] 3 days ago. She noted that [...] going to relapse or end up in senior living. She did not exhibit any behavior concerningfor [...] 15 Days Qty: 15 1RF Follow Up: [facility] [Outside] (was referred at last admission) [facility] [place] [Outside] (for any urgent medical needs) Exam Physical Exam Vital Signs: Temp Pulse Resp BP Pulse Ox O2 Del Method 97.7 F 102 H 15 122/87 99 Room Air 11/16/24 07:30 11/16/24 07:30 11/16/24 07:30 11/16/24 07:30 11/16/24 07:30 11/16/24 09:00 Documented By: Dashawn Moreno MD 11/16/24 1247 Signed By: <Electronically signed by Dashawn Moreno MD> 11/16/24 1251 [facility] Work Phone: Evaluation noteNo InformationNocarondelet health [employer], [employer] Other Evaluation noteNo assessment information available [facility] Work Phone: evaluation note* Diagnosis Onset Date Resolution Status care following vaginal delive ry acute [facility] Work Phone: evaluation note* Diagnosis Chronic GERD Diarrhea, unspecified type Gas pain Flatulence, eructation, and gas pain documented in this encounter [facility]THE[facility]* Diagnosis Viral upper respiratory tract infection- Primary Acute upper respiratory infections of unspecified site documented in this encounter [facility]* Diagnosis Postoperative pain- Primary Other acute postoperative pain Menorrhagia with regular cycle Excessive or frequent menstruation Pelvic pain Adenomyosis Endometriosis of uterus Pelvic congestion syndrome documented in this encounter [facility]THE[facility]* Diagnosis Right ovarian cyst- Primary Other and unspecified ovarian cyst documented in this encounter [facility]* Diagnosis Pelvic pain documented in this encounter [facility]* Diagnosis Abdominal pain, right lower quadrant- Primary Pelvic pain documented in this encounter [facility]* Diagnosis Right ovarian cyst- Primary Other and unspecified ovarian cyst [facility] this encounter [facility]* Diagnosis Right ovarian cyst- Primary Other and unspecified ovarian cyst documented in this encounter [facility]* Diagnosis Pneumoperitoneum- Primary Other specified disorder of peritoneum Pneumoperitoneum Other specified disorder of peritoneum Perforated diverticulum Peritoneal cavity free air Other specified disorder of peritoneum Postoperative pain Other acute postoperative pain Abdominal pain Abdominal pain, unspecified site Anxiety Anxiety state, unspecified documented in this encounter [facility] HealthEvaluation [facility]* Diagnosis Right lower quadrant pain- Primary Pelvic pain in female Unspecified symptom associated with female genital organs Right ovarian cyst Other and unspecified ovarian cyst [facility] Diagnosis Onset Date Resolution Status Admit Date Contact with and (suspected) exposure to covid-19 noneactiveFebruary 2024 12:11pm [facility] Work Phone: evaluation note* Diagnosis Pelvic abscess in female- Primary Change or removal of drains Other specified aftercare following surgery [facility] Diagnosis Pelvic pain- Primary Routine general medical examination at a health care facility documented [facility] this encounter [facility]* Diagnosis Abdominal pain in female- Primary documented in this encounter [facility]* Diagnosis Abdominal pain in female- Primary documented in this encounter [facility] Healthcare[facility]* Diagnosis Abdominal pain in female- Primary Pelvic pain in female Unspecified symptom associated with female genital organs documented in this encounter [facility] HealthcareEvaluation [facility]* Diagnosis Severe episode of recurrent major depressive disorder, without psychotic features (HCC) (CMS/HCC)- Primary documented in this encounter [facility] HealthcareEvaluation note* Diagnosis Onset Date Resolution Status Admit Date Major depressive disorder acuteMay 2024 1:28amSuicidal ideationacuteMay 2024 1:28am [facility] Work Phone: Evaluation note* Diagnosis Surgery follow-up- Primary Pelvic peritoneal adhesions, 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 peritoneal adhesions, female (postoperative) (postinfection) Right ovarian cyst Other and unspecified ovarian cyst RLQ abdominal pain Abdominal pain, right lower quadrant Other urinary incontinence Menopausal symptoms Symptomatic menopausal or female climacteric states documented in this encounter [facility] HealthcareHistory and physical note Author Kit fox [facility] HospitalNote Date/TimeMay 2024 1:12pm[place] [address] Psychiatry H&P Signed Patient: Barbra Claros MR#: [id number] : 1995 Acct:[id number] Age/Sex: 29 / F Adm Date: 5 Loc: Room: [address] [place] [address] Type: ADM IN Attending Dr: Kit Gutierrez [...] She was at an appointment with her ob-shoe lay out planner provider and he asked her to go [...] from her significant other, difficulty with her adamaris gonzales's father, and toxic relationships with her [...] barbra attends AA meetings and has a sponsorwho she listed as a support and personal insurance advisor. She was agreeable to treatment and hopes [...] Specifically last Monday, she was sent to [facility] due to panic attacks at which time they suggested that she voluntarily admit herself to 1 S[address] but said she was talked out of it by her mother. Has been wanting to increase her venlafaxine dose recently. Tells me that she does not have a PCP or mental provider in the community but her medications are managed by her tetryl blender operator Dr. Gurrola. This morning she denies SI, HI, delusions. 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 EHR Cmte Ovarian cyst removal of cyst in 09/20/2019 Problem List clean-up per request of [facility] Depression was on medication, stopped taking medication years ago Problem List clean-up per request of Phys. EHR Cmte Anxiety Problem List clean-up per request of Phys. EHR Cmte Hemorrhagic cyst of right ovary Problem List clean-up per request of Phys. EHR Cmte Kidney stones with last Problem List clean-up per request of Phys. [facility]HR [facility] No pertinent past medical history Problem [...] Appearance Clear Urine pH 5.5 Ur Specific [place] 1.015 Urine Protein Negative Urine Glucose (UA) [...] signed by Kit Gutierrez MD> 11/07/24 1312 [facility] Work Phone: History and physical note Author Dashawn Moreno [facility] HospitalNote Date/TimeMay 2024 11:57[place] [address] Psychiatry H&P Signed Patient: Barbra Claros MR#: [id number] : 1995 Acct:[id number] Age/Sex: 29 / F Adm Date: 5 Loc: Room: [address] [place] [address] Type: ADM IN Attending Dr: Dashawn Moreno [...] she got out of the [facility] days ago. She noted that [...] confirmed this withthe resident as noted below. [facility] Medical History (Updated 11/15/24 @ 05:33 [...] Appearance Clear Urine pH 7.0 Ur Specific [place] 1.031 H Urine Protein 20 H Urine [...] signed by DO ARABELLA Munoz> 11/15/24 1059 [facility] Work Phone: History general Narrative - Reported* Type Description Date Medical History ADHD Medical Historyblood transfusionMedical HistoryheadacheSurgical Historyplasic surgery to nose from injurySurgical Historyovarian [id number] Historyinfancy due to drinking [employer] oil [employer] Other Hospital Discharge instructions Additional Instructions Keep all scheduled appointments with [facility] Work Phone: Hospital Discharge instructions* Attachments The following attachments cannot be sent through Care Everywhere. * EGD (Upper Endoscopy): Post-op (French) [facility]* Attachments The following attachments cannot be sent through Care Everywhere. * URI (Upper Respiratory Infection): Viral (French) [facility] Discharge instructions Additional Instructions Important Contact Information You can call [facility] at [phone] any time day or night if you have emergent questions or question regarding discharge instructions. If at any time you are feeling an increase in your psychiatric symptoms, call your physician or behavioral healthcare provider. If any time you have thoughts of harming yourself or others contact one of the following: Call 9-8-8 (available 09/01) Crisis Text Line (available 09/01) text 4HOPE to [phone] [facility] Hope Line (available 8 a.m. Midnight) call [phone] ([phone]) [facility] Work Phone: InstructionsNot on filedocumented in this encounter [facility]ructionsNot on filedocumented in this encounter [facility] SystemInstructionsNot on filedocumented in this encounter [facility] SystemInstructionsNot on filedocumented in this encounter [facility] SystemInstructionsNot on filedocumented in this encounter [facility] SystemInstructionsNot on filedocumented in this encounter [facility] SystemProgress note Author Kit fox [facility] HospitalNote Date/TimeMay 2024 1:42pm[place] [address] Psychiatry Progress Note Signed Patient: Barbra Claros MR#: [id number] : 1995 Acct:[id number] Age/Sex: 29 / F Adm Date: 5 Loc: Room: [address] [place] [address] Type : ADM IN Attending Dr: Kit [...] <Electronically signed by Kit Gutierrez MD> 11/08/24 0856 [facility] Work Phone: Progress note Author Kit fox [facility] HospitalNote Date/TimeMay 2024 7:31[place] [address] Psychiatry Progress Note Signed Patient: Barbra Claros MR#: [id number] : 1995 Acct:[id number] Age/Sex: 29 / F Adm Date: 5 Loc: Room: [address] [place] [address] Type : ADM IN Attending Dr: Kit [...] plan.? Documented By: Kit Gutierrez MD 5 [id number] Signed By: <Electronically signed by Kit Gutierrez MD> 11/09/24 0731 [facility] Work Phone: Progress note Author MICHAEL GURROLA [facility] HospitalNote Date/TimeOctober 2024 8:49[place] [id number] BOX STRAPPER Progress Note Signed Patient: Barbra Claros MR#: [id number] : 1995 Acct:[id number] Age/Sex: 29 / F Adm Date: Loc: Room: [address] [place] [address] Type: ADM IN Attending Dr: Michael Gurrola MD Copies to: ~ Date of Service: 03/25/2025 CLIENT SUPPORT CONSULTANT - PN: Subj Data Subjective History of Present Illness: POD #1 Laparoscopy with lysis of adhesions and right oophorectomy. She feels better this morning. Her preop pain is gone. She is hungry CLIENT SUPPORT CONSULTANT - PN: Obj Data Labs Labs: Laboratory Results - last 24 hr 03/25/25 06:49 Corrected WBC 6.9 Uncorrected WBC Count 6.9 RBC 3.85 Hgb 11.0 L Hct 33.2 L MCV 86.2 MCH 28.5 MCHC 33.1 RDW 14.0 Plt Count 261 MPV 7.4 Neut % (Auto) 77.6 Lymph % (Auto) 14.7 [place] % (Auto) 7.6 Eos % (Auto) 0.0 Baso % (Auto) 0.1 Nucleat RBC Rel Count 0.1 Neut # (Auto) 5.4 Lymph # (Auto) 1.0 [place] # (Auto) 0.5 Eos # (Auto) 0.0 Baso # (Auto) 0.0 CLIENT SUPPORT CONSULTANT - Exam Physical Exam Vital signs: Temp [...] signed by MD MICHAEL GURROLA> 03/25/25 0849 [facility] Work Phone: Reason for referral (narrative)* Consultation (Routine) - Pending ReviewSpecialtyDiagnoses / ProceduresReferred By Contact Referred To ContactInternal Medicine Diagnoses Routine general medical examination at a health care facility Lisha Ouwsu MD [address] [facility] [address] [place] [address] [facility] Adult Med [address] [place] [address] Referral IDStatusReasonStart DateExpiration DateVisits RequestedVisits [id number] Specialty Services Required / [facility] for visit NarrativePATIENT HERE AT THE REQUEST OF DR. 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, NAUSEA& VOMITING, ABDOMINAL PAIN, BLOOD IN STOOLMiami [employer], [employer] Other Chief Complaint and Reason for Visit [...] weeks iup pressure 37wks contractions pain and pressureReason for VisitPostpartum care following vaginal delivery Chief Complaint z36.85 z3a.36 36 weeks pressure iup 36 weeks 37 weeks iup pressure 37wks contractions pain and pressureReason for VisitPostpartum care following vaginal delivery Chief Complaint abd pain, hx [...] Visit Admit Date Major depressive disorder, recurrent Aug us2024 4:22pm [...] 2025 10 :09pm Chief Complaint Admit Date MHP,suicidal January 22, 2025 4:2 2pm poss UTI February 08, 2025 2: 02pm R30.0,N39.0 February 08, 2025 2: 30pm Cough, congestion 3of3 February 24 9:56am BH March 18, 2025 10:00am Hemorrhagic Cyst Right Ovary March 9:59pm R Hemorrhagic Cyst March 23, 2025 10 :09pm Abd pain March 26, 2025 9: 56am post surg comp. April 04, 2025 1 0:09am Sore throat, right earache April 21, 2025 9:40am Advance Directives Advance Directive Response Recorded Date/ Time Advance Directives No November 24 2:31pm Advance Directive Response Recorded Date/ Time Advance Directives No November 24 1:31pm Code StatusDate ActivatedDate InactivatedCommentsFull Code11/20/2023 11:34 AMDate ActivatedDate InactivatedComments11/20/2023 11:34 AM11/20/2023 7:14 PMDate Activated Date TxebuuqegxnPgtkndyt79/24/2024 1:43 AMDate ActivatedDate InactivatedComments 04/10/2024 11:39 PM10 1:43 AMDate ActivatedDate InactivatedComments 11/20/2023 11:34 AM11/20/2023 7:14 PMNameRelationshipHealthcare Agent Relationship CommunicationRicky TeagueSpousePrimary Decision Maker* Date ActivatedDate InactivatedComments11/27/2020 2:29 AM11/30/2020 7:03 PMDate ActivatedDate InactivatedComments11/27/2020 2:29 AM11/30/2020 7:03 PM Summary Purpose Family History Relationship Condition Age at Onset Recorded Date/T neeta Not Specified Hypertension Unknown brotherHeart murmurUnknown Relationship Condition Age at Onset Recorded Date/T neeta Not Specified No pertinent family history Unknown HypertensionUnknownbrotherHeart murmurUnknown Relationship Condition Age at Onset Recorded Date/T neeta Not Specified No pertinent family history Unknown brotherHeart murmurUnknownNo Family History Records Found Additional Source Comments REASON FOR VISIT (unrecogniz ed section and content) SpecialtyDiagnoses / ProceduresReferred By ContactReferred To Contact Diagnoses Chronic GERD Diarrhea, unspecified type Gas pain K21.6XMB-46-OBAfgbtkr GERD R19.7TSP-07-AHPqdxowni, unspecified type R14.6MHL-09-UIQcf pain Procedures CA ESOPHAGOGASTRODUODENOSCOPY TRANSORAL DIAGNOSTIC CA EGD TRANSORAL BIOPSY SINGLE/MULTIPLE CA EGD BALLOON DILATION ESOPHAGUS <30 MM DIAM EGD Kisha Rangel MD [address] [place] [address] [facility] [address] [place] [address] Referral IDStatusReasonStart DateExpiration DateVisits RequestedVisits [id number] PainShortness of BreathCoughPatient states she began yesterday evening with cough, chest pain, and shortness of breath intermittently with cough/exertion.SpecialtyDiagnoses / Procedures Referred By ContactReferred To Contact Diagnoses Menorrhagia with regular cycle Pelvic pain Adenomyosis Pelvic congestion syndrome Menorrhagia with regular cycle [N92.0] Pelvic pain [R10.2] Adenomyosis [N80.03] Pelvic congestion syndrome [N94.89] Procedures CA LAPS TOTAL HYSTERECT 250 GM/< W/RMVL TUBE/OVARY HYSTERECTOMY VAGINAL LAPAROSCOPIC ROBOTIC ASSISTED - POSSIBLE BILATERAL SALPINGOOPHORECTOMY, POSSIBLE LAPAROSCOPIC COLPOPEXY Mickie Barrientos, DO [address] [place] [address] [facility] [address] [place] [address] Referral IDStatusReasonStart DateExpiration DateVisits RequestedVisits [id number] PainPt to ED from home with c/o mid- lower abd pain and nausea.Onset of symptom x2 days ago.Pt admitted into [facility] with c/o abscess with drainage tube.Drainage x1.5-2 weeks ago. Pt also placed on antibiotic (completed 3 days ago).Incisional PainPt also report incisional pain and warmth.Pt noticed the area this am.urinary problemsPt reports being unable to empty bladder completely.Pt states she's feeling pressure.All the aforementioned symptoms similar to when pt was septic.Reason CommentsLeg PainRight leg pain and tingling started last night has had same symptom after hysterectomy 11/20/23 alongwith complications since surgeryAbdominal PainReasonCommentsFlank PainRight flank pain radiates to right groin. Has history of kidney stones. States after hysterectomy in November had postop abscess ReasonCommentsAbdominal PainLower right abdominal pain with pain of the right side, hx of cyst on right ovary. Patient describes pain as cramping increasing with movement.ReasonCommentsCystReports hx ovarian cyst. Seen here last week for same issue. Reports increase in pain from last week radiating down legs. Nausea, decreased appetite. Unable to get into her OB until this Monday. Reports improvement in pain with percocet, but ran out. Currently taking tylenol and ibuprofen with no relief.ReasonCommentsAbdominal PainRight ovarian cyst pain that radiates through abdomin and back, patient seen in ED yesterday for same complaint. Pain worsens with walking and nausea.SpecialtyDiagnoses / Procedures Referred By ContactReferred To Contact Diagnoses Pneumoperitoneum Perforated diverticulum Nicolette Wyman MD [address] [place] [address] [facility] [address] [place] [address] Referral IDStatusReasonStart DateExpiration DateVisits RequestedVisits [id number] UmmtCfbcxdpqGpky79/28/2024Weakness - Generalized 01/14/2024easonOnset DateCommentsMedication Fmmqrhk0201/13/2024easonCommentsIR drain follow upReasonCommentsOvarian CystEr Follow-up Care Teams (unrecognized sec tion and content) Team Status: Active Member Role Status Dates PHYSICIAN NO FAMILY Primary Care Provider Active Team Status: Active Member Role Status Dates PHYSICIAN NO FAMILY Primary Care Provider Active Start: December 29, 2024 Tara Parks ProviderActiveStart: December 29, 2024 Carmen Tyler ProviderActiveStart: December 29, 2024 Kit Gutierrez MDAttending ProviderActiveStart: December 29, 2024 Kasey Tyler ProviderActiveStart: December 29, 2024 Team Status: Active Member Role Status Dates PHYSICIAN NO FAMILY Primary Care Provider Active Start: January 22, 2025 Kaiser Badillo ProviderActiveStart: January 22, 2025 Carmen Diehl ProviderActiveStart: January 22, 2025 Dashawn Moreno , ERICttending ProviderActiveStart: January 22, 2025 Kasey Diehl ProviderActiveStart: January 22, 2025 Team Status: Inactive Member Role Status Dates PHYSICIAN NO FAMILY Primary Care Provider Active Start: February 08, 2025 End: February 08montana Cruz APRNAtestrella ProviderActiveStart: February 08, 2025 End: February 08, 2025 Team Status: Inactive Member Role Status Dates Fe Cruz APRN Attending Provider Active S tart: February 08, 2025 End: February 08, 2025 Team Status: Inactive Member Role Status Dates Fe Cruz APRN Attending Provider Active S tart: February 24, 2025 End: February 24, 2025NON STAFFPrimary Care ProviderActiveStart: February 24, 2025 End: February 24, 2025 Team Status: Active Member Role Status Dates PHYSICIAN NO FAMILY Primary Care Provider Active Start: March 18, 2025 Kit Gutierrez MDAttending ProviderActiveStart: March 18, 2025 Team Status: Inactive Member Role Status Dates NON STAFF Primary Care Provider Active Start: March 19, 2025 End: March 20rinabil Printy , MDAdmit ProviderActiveStart: March 19, 2025 End: March 20rinabil Printamadeo , MDAttending ProviderActiveStart: March 19, 2025 End: March 20, 2025 Team Status: Inactive Member Role Status Dates NON STAFF Primary Care Provider Active Start: March 23, 2025 End: March 25rinabil Gurrola MDAdmit ProviderActiveStart: March 23, 2025 End: March 25rian ERIC Gurrolattending ProviderActiveStart: March 23, 2025 End: March 25, 2025 Team Status: Inactive Member Role Status Dates Goyo Epps DO Emergency Provider Active St art: March 26, 2025 End: March 26, 2025PHYSICIAN NO FAMILYPrimary Care ProviderActiveStart: March 26, 2025 End: March 26, 2025 Team Status: Inactive Member Role Status Dates PHYSICIAN NO FAMILY Primary Care Provider Active Start: November 07, 2024 End: November 10Kaiser Beckman ProviderActiveStart: November 07, 2024 End: November 10Carmen Hansen Provider, Attending Provider ActiveStart: November 07, 2024 End: November 10, 2024 Team Status: Active Member Role Status Dates PHYSICIAN NO FAMILY Primary Care Provider Active Start: November 07, 2024 Kaiser Badillo ProviderActiveStart: November 07, 2024 Carmen Tyler Provider, Attending Provider, Other Provider ActiveStart: November 07, 2024 Team Status: Active Member Role Status Dates PHYSICIAN NO FAMILY Primary Care Provider Active Start: November 07, 2024 Kaiser Badillo ProviderActiveStart: November 07, 2024 Carmen Tyler Provider, Attending ProviderActiveStart: November 07, 2024 Team Status: Inactive Member Role Status Dates PHYSICIAN NO FAMILY Primary Care Provider Active Jose Daniel Grayson ProviderActive Team Status: Inactive Member Role Status Dates PHYSICIAN NO FAMILY Primary Care Provider Active Jose Daniel Bentley ProviderActive Team Status: Active Member Role Status Dates Michael Gurrola MD Primary Care Provider Active Team Status: Inactive Member Role Status Dates Michael Gurrola MD Attending Provider Active Team Status: Inactive Member Role Status Dates Michael Gurrola MD Primary Care Provider Active Coleman Barajas ProviderActive Team Status: Inactive Member Role Status Dates Michael Gurrola MD Attending Provider Active PHYSICIAN NO FAMILYPrimary Care ProviderActive Team Status: Inactive Member Role Status Dates PHYSICIAN NO FAMILY Primary Care Provider Active Coleman Lopez ProviderActive Team Status: Inactive Member Role Status Dates PHYSICIAN NO FAMILY Primary Care Provider Active Coleman Barajas ProviderActive Team Status: Inactive Member Role Status Dates PHYSICIAN NO FAMILY Primary Care Provider Active Manohar Bentley Provider, Attending ProviderActiveTeam Member RelationshipSpecialtyStart DateEnd Date Melida Huang 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 [facility] [address] [place] [address] PCP - GeneralNurse Practitioner07/14/23Team MemberRelationshipSpecialtyStart Date End Date Melida Huang 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 [facility] [address] [place] [address] PCP - GeneralNurse Practitioner07/14/23Team MemberRelationshipSpecialtyStart Date End Date [facility]ida 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 [address] [place] [address] PCP - GeneralNurse Practitioner07/14/23 Team Status: Inactive Member Role Status Dates PHYSICIAN NO FAMILY Primary Care Provider Active Start: January 08, 2024 End: January 07ELA Rubio-CEmergeannie ProviderActiveStart: January 08, 2024 End: January 08, 2024Team MemberRelationshipSpecialtyStart DateEnd Date Melida Huang APRN [facility] [address] [place] [address] PCP - GeneralNurse Practitioner07/14/23Team MemberRelationshipSpecialtyStart Date End Date Melida Huang APRN [employer] [address] [place] [address] PCP - GeneralNurse Practitioner07/14/23Team MemberRelationshipSpecialtyStart Date End Date Melida Huang [facility] [address] [facility] [place] [place] [address] PCP - GeneralNurse Practitioner07/14/23Team MemberRelationshipSpecialtyStart Date End Date Melida Huang [facility] [address] [place] [address] PCP - GeneralNurse Practitioner07/14/23Te MemberRelationshipSpecialtyStart Date End Date Melida Huang [facility] [address] [facility] [place] [address] PCP - GeneralNurse Practitioner07/14/23Team MemberRelationshipSpecialtyStart Date End Date Melida Huang [facility] [address] [place] [address] PCP - GeneralNurse Practitioner07/14/23Team MemberRelationshipSpecialtyStart Date End Date Melida Huang [facility] [address] [place] [address] PCP - GeneralNurse Practitioner07/14/23Team MemberRelationshipSpecialtyStart Date End Date Unallocated, Juliet Ivan MD [address] [place], [place] [id number] PCP - General12/01/22 Michael Gurrola MD [address] [facility] [address] [place] [address] Obstetrics and Gynecology03/08/23Team MemberRelationshipSpecialtyStart DateEnd Date Unallocated, [place] [address] PCP - General12/01/22 Michael Gurrola MD [address] [facility] [address] [place] [address] Obstetrics and Gynecology03/08/23 Team Status: Inactive Member Role Status Dates PHYSICIAN NO FAMILY Primary Care Provider Active Start: July 22, 2024 End: July 22Obey rCuz ProviderActiveStart: July 22, 2024 End: July 22, 2024Team MemberRelationshipSpecialtyStart DateEnd Date Melida Huang APRN-[facility] [address] [place] [address] PCP - [facility]01/11/22Team MemberRelationshipSpecialtyStart DateEnd Date Melida Huang APRN-[facility] [address], [place] [address] PCP - [facility]01/11/22Team MemberRelationshipSpecialtyStart DateEnd Date Melida Huang 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-[facility] [address], [place] [address] PCP - [facility]01/11/22Team MemberRelationshipSpecialtyStart DateEnd Date Melida Huang, 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-[employer]PRESS ASSOCIATE [address], [place] [facility] [place] [address] PCP - Generalmily Medicine01/11/22Team MemberRelationshipSpecialtyStart DateEnd Date Melida Huang, 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-IM[employer] ASSOCIATE [address], [place] [address] [facility] [facility]01/11/22Team MemberRelationshipSpecialtyStart DateEnd Date No Pcp, [place] [address] PCP - GeneralFamily Medicine02/07/24Team MemberRelationshipSpecialtyStart DateEnd Date Unallocated, Noms MD [facility] [address] [place] [address] PCP - General12/01/22 Michael Gurrola MD [address] [facility] [address] [place] [address] Obstetrics and Gynecology03/08/23Team MemberRelationshipSpecialtyStart DateEnd Date Unallocated, Noms MD [facility] [address] [place] [address] PCP - General12/01/22 Michael Gurrola MD [address] [place] [address] Obstetrics and Gynecology03/08/23Team MemberRelationshipSpecialtyStart DateEnd Date Unallocated, Noms MD [address] [address] [place] [address] PCP - General12/01/22 Michael Gurrola MD [address] [facility] [address] [place] [address] Obstetrics and Gynecology03/08/23 Team Status: Active Member Role Status Dates PHYSICIAN NO FAMILY Primary Care Provider Active Start: November 14, 2024 Kaiser Garcia ProviderActiveStart: November 14, 2024 Carmen Diehl Provider, Attending ProviderActiveStart: November 14, 2024 Team Status: Inactive Member Role Status Dates PHYSICIAN NO FAMILY Primary Care Provider Active Start: November 14, 2024 End: November 16, 2024Kaiser Garcia ProviderActiveStart: November 14, 2024 End: November 16defederico Moreno MDAdmit Provider, Attending ProviderActive Start: November 14, 2024 End: November 16, 2024 Team Status: Active Member Role Status Dates PHYSICIAN NO FAMILY Primary Care Provider Active Start: November 15, 2024 Kaiser Garcia ProviderActiveStart: November 15, 2024 Carmen Diehl Provider, Attending Provider, Other ProviderActive Start: November 15, 2024 Team Status: Inactive Member Role Status Dates Vik Gunter MD Attending Provider Active St art: November 23, 2024 End: November 23, 2024 Team Status: Inactive Member Role Status Dates PHYSICIAN NO FAMILY Primary Care Provider Active Start: November 07, 2024 End: November 10Kaiser Beckman ProviderActiveStart: November 07, 2024 End: November 10Juana Hansenit ProviderActiveStart: November 07, 2024 End: November 10Coleman Hansen ProviderActiveStart: November 07, 2024 End: November 10, 2024 Team Status: Active Member Role Status Dates PHYSICIAN NO FAMILY Primary Care Provider Active Start: November 07, 2024 Kaiser Badillo ProviderActiveStart: November 07, 2024 Kit Gutierrez ERICdmit ProviderActiveStart: November 07, 2024 Kit Gutierrez MDAttending ProviderActiveStart: November 07, 2024 Kasey Tyler ProviderActiveStart: November 07, 2024 Team Status: Inactive Member Role Status Dates PHYSICIAN NO FAMILY Primary Care Provider Active Start: November 14, 2024 End: November 16, 2024Kaiser Garcia ProviderActiveStart: November 14, 2024 End: November 16judy Moreno , MDAdmit ProviderActiveStart: November 14, 2024 End: November 16judy Moreno MDAttending ProviderActiveStart: November 14, 2024 End: November 16, 2024 Team Status: Active Member Role Status Dates PHYSICIAN NO FAMILY Primary Care Provider Active Start: November 15, 2024 Kaiser Garcia ProviderActiveStart: November 15, 2024 Dashawn Moreno MDAdmit ProviderActiveStart: November 15, 2024 Dashawn Moreno MDAttending ProviderActiveStart: November 15, 2024 Kasey Diehl ProviderActiveStart: November 15, 2024 Team Status: Active Member Role Status Dates PHYSICIAN NO FAMILY Primary Care Provider Active Start: December 03, 2024 Tara Alvarado Jr ProviderActiveStart: December 03, 2024 Kit Gutierrez MDAdmit ProviderActiveStart: December 03, 2024 Coleman Tyler ProviderActiveStart: December 03, 2024 Kasey Tyler ProviderActiveStart: December 03, 2024 Team Status: Active Member Role Status Dates PHYSICIAN NO FAMILY Primary Care Provider Active Start: December 29, 2024 Tara Parks ProviderActiveStart: December 29, 2024 Kit Gutierrez , MDAdmit ProviderActiveStart: December 29, 2024 Kit Gutierrez MDAttending ProviderActiveStart: December 29, 2024 Team Status: Active Member Role Status Dates PHYSICIAN NO FAMILY Primary Care Provider Active Start: January 08, 2025 Kit Gutierrez MDAttending ProviderActiveStart: January 08, 2025 Team Status: Active Member Role Status Dates PHYSICIAN NO FAMILY Primary Care Provider Active Start: January 22, 2025 Duane Simons DOEmergenadri ProviderActiveStart: January 22, 2025 Juana Diehlit ProviderActiveStart: January 22, 2025 Dashawn Moreno MDAttending ProviderActiveStart: January 22, 2025 Team Status: Active Member Role Status Dates PHYSICIAN NO FAMILY Primary Care Provider Active Start: January 27, 2025 Kit Gutierrez MDAttending ProviderActiveStart: January 27, 2025 Team Status: Active Member Role Status Dates NON STAFF Primary Care Provider Active Team Status: Active Member Role Status Dates PHYSICIAN NO FAMILY Primary Care Provider Active Start: February 13, 2025 Kit Gutierrez MDAttending ProviderActiveStart: February 13, 2025 Team Status: Active Member Role Status Dates PHYSICIAN NO FAMILY Primary Care Provider Active Start: February 24, 2025 Kit Gutierrez MDAttending ProviderActiveStart: February 24, 2025 Team MemberRelationshipSpecialtyStart DateEnd Date Unallocated, Juliet Ivan MD [address] [place] [address] PCP - General12/01/22 Michael Gurrola MD [address] [facility] [address] [place] [address] Obstetrics and Gynecology03/08/23 Team Status: Active Member Role/Relationship Status Dates PHYSICIAN NO FAMILY Primary Care Provider Active Team Status: Active Member Role/Relationship Status Dates PHYSICIAN NO FAMILY Primary Care Provider Active Start: January 22, 2025 Jada Badillorkhloe ProviderActiveStart: January 22, 2025 Juana Diehlit ProviderActiveStart: January 22, 2025 Linda Diehlending ProviderActiveStart: January 22, 2025 Kasey Diehl ProviderActiveStart: January 22, 2025 Team Status: Inactive Member Role/Relationship Status Dates PHYSICIAN NO FAMILY Primary Care Provider Active Start: February 08, 2025 End: February 08Obey Cruz ProviderActiveStart: February 08, 2025 End: February 08, 2025 Team Status: Inactive Member Role/Relationship Status Dates Fe Cruz APRN Attending Provider Active S tart: February 08, 2025 End: February 08, 2025 Team Status: Inactive Member Role/Relationship Status Dates Fe Cruz APRN Attending Provider Active S tart: February 24, 2025 End: February 24, 2025NON STAFFPrimary Care ProviderActiveStart: February 24, 2025 End: February 24, 2025 Team Status: Active Member Role/Relationship Status Dates PHYSICIAN NO FAMILY Primary Care Provider Active Start: March 18, 2025 Kit Gutierrez , ERICttending ProviderActiveStart: March 18, 2025 Team Status: Inactive Member Role/Relationship Status Dates NON STAFF Primary Care Provider Active Start: March 19, 2025 End: March 20rian Printy , MDAdmit ProviderActiveStart: March 19, 2025 End: March 20rian Printy , MDAttending ProviderActiveStart: March 19, 2025 End: March 20, 2025 Team Status: Inactive Member Role/Relationship Status Dates NON STAFF Primary Care Provider Active Start: March 23, 2025 End: March 25rian Printy , MDAdmit ProviderActiveStart: March 23, 2025 End: March 25rian Printy , MDAttending ProviderActiveStart: March 23, 2025 End: March 25, 2025 Team Status: Inactive Member Role/Relationship Status Dates DO Abby Garcia Provider Active St art: March 26, 2025 End: March 26, 2025PHYSICIAN NO FAMILYPrimary Care ProviderActiveStart: March 26, 2025 End: March 26, 2025 Team Status: Inactive Member Role/Relationship Status Dates PHYSICIAN NO FAMILY Primary Care Provider Active Start: April 04, 2025 End: April 04, 2025Kaiser Garcia ProviderActiveStart: April 04, 2025 End: April 04, 2025Team MemberRelationshipSpecialtyStart DateEnd Date Unallocated, Juliet Ivan MD [address] [place] [address] [facility]12/01/22 Michael Gurrola MD [address] [place] [address] Obstetrics and Gynecology03/08/23Team MemberRelationshipSpecialtyStart DateEnd Date Unallocated, Juliet Ivan MD [address] [place] [address] [facility]12/01/22 Michael Gurrola MD [address] [place] [address] Obstetrics and Gynecology03/08/23 Team Status: Inactive Member Role/Relationship Status Dates PHYSICIAN NO FAMILY Primary Care Provider Active Start: April 21, 2025 End: April 21, 2025Parandi Nolan APRN BANK WORKER-CAttending Provider ActiveStart: April 21, 2025 End: April 21, 2025 Goals (unrecognized section and content) Goals may be documented in a n alternate section PRN Active and Recently Administ ered Medications (unrecognized section and content) Medication Order//11/2023 levalbuterol (XOPENEX) nebulizer solution 1.25 mg 1.25 mg, Nebulization, EVERY 8 HOURS PRN, Starting on Mon07/25/23 at 0942, Until Discontinued, Wheezing * 0945 (Given - Provider: Annmarie Champagne RCP) sterile water for irrigation (CANCELED) PRN, Starting on Mon07/25/23 at 0937, Intra-op * 0937 (Given - Provider: Kisha Rangel MD) Medication Order08/13//// benzonatate (TESSALON) capsule 200 mg (COMPLETED) 200 mg, Oral, ONCE, 1 dose, On Mon08/15/23 at 2014 * 2024 (Given - Provider: Radha Barreto RN) dexAMETHasone (DECADRON) Oral 10 mg (COMPLETED) 10 mg, Oral, ONCE, On Mon08/15/23 at 2014, For 1 dose * 2024 (Given - Provider: Radha Barreto RN) ipratropium 0.5 mg-albuterol 2.5 mg (DUONEB) nebulizer solution 1 Dose (COMPLETED) 1 Dose, Inhalation, ONCE, 1 dose, On Mon08/15/23 at 2014, Initiate RT Bronchodilator Protocol: No * 2031 (Given - Provider: Carmita Tadeo RCP) Medication Order11/17////08/2023 ceFAZolin (ANCEF) 2000 mg in 0.9% sodium chloride 100 mL IVPB (COMPLETED) 2,000 mg, IntraVENous, TANK ASSEMBLER TO O.R., 1 dose, On Mon11/20/23 at 1200, Antimicrobial Indications: Surgical Prophylaxis, Administer within 1 hour prior to incision., Pre-op (day of surgery) * 1353 (New Bag - Provider: Brynn Friend RN) * 1423 (Stopped - Provider: Krystal Mejia RN - Comment: stopped in OR) dimenhyDRINATE (DRAMAMINE) tablet 50 mg (COMPLETED) 50 mg, Oral, ONCE, 1 dose, On Mon11/20/23 at 1200, Pre-op (day of surgery) * 1201 (Given - Provider: Katherine Zhang RN) enoxaparin (LOVENOX) injection 40 mg (COMPLETED) 40 mg, SubCUTAneous, ONCE, 1 dose, On Mon11/20/23 at 1200, Indication of Use: Prophylaxis-DVT/PE, Administer by deep subCUTAneous injection with pt lying down. Alternate injection sites on abdominal wall. Do not rub site after injection. Check with provider prior to any invasive procedure., Pre-op (day of surgery) * 1202 (Given - Provider: Katherine Zhang RN) sodium chloride flush 0.9 % injection 5-40 mL 5-40 mL, IntraVENous, EVERY 12 HOURS SCHEDULED (2 times per day), First dose on Mon11/20/23 at 2100,Until Discontinued, For Line Patency: Peripheral IV = [...] = 20 mL/lumen, Pre-op (day of surgery) * 2100 (Due) sodium chloride flush 0.9 % injection 5-40 mL 5-40 mL, IntraVENous, EVERY 12 HOURS SCHEDULED (2 times per day), First dose on Mon11/20/23 at 2100,Until Discontinued, For Line Patency: Peripheral IV = [...] Central Line = 20 mL/lumen, PACU only * 2100 (Due) Medication Order// lactated ringers IV soln infusion IntraVENous, at 100 mL/hr, CONTINUOUS, Starting on Mon11/20/23 at 1200, Pre-op (day of surgery) * 1208 (New Bag - Provider: Katherine Zhang RN) * 1356 (NoRateChange - Provider: KYLEE Wilde CRNA) * 1505 (Paused - Provider: KYLEE Umanzor CRNA - Comment: Switch to gravity) * 1506 (New Bag - Provider: KYLEE Umanzor CRNA) * 1530 (Anesthesia Volume Adjustment - Provider: KYLEE Umanzor CRNA) Medication Order// 0.9 % sodium chloride infusion IntraVENous, at 5-250 mL/hr, PRN, if patient receiving piggyback infusions and maintenance fluids are not ordered OR KVO fluids to protect IV site / prevent frequent line interruptions/ long duration, Starting on Mon11/20/23 at 1134, For piggyback infusion, administer at same rate as piggyback for atotal of 25 mL. Enter 25 mL into [...] administer at same rate as piggyback for atotal of 25 mL. Enter 25 mL into [...] mL syringe. (Note: dilution is 0.04 mg/mL) Give0.08 mg (2 mL of special dilution), slow IV push, repeat up to 0.4 mg (10 mL) or until patient is responsive to physical stimulation and respiratory rate is equal to or greater than 6 breaths/min. Continue to observe, if no response within 3 minutes of administration of 0.4 mg (10 mL) total, repeatdose (0.4 mg as administered previously). Concentration 0.04 mg/mL, PACU only oxyCODONE (ROXICODONE) immediate release tablet 5 mg (COMPLETED) 5 mg, Oral, ONCE PRN, 1 dose, Starting on Mon11/20/23 at 1422, Until Mon11/21/23 at 1422, Pain Moderate (4-6), Pain Severe (7-10) * 1614 (Given - Provider: Krystal Mejia RN) prochlorperazine (COMPAZINE) injection 5 [...] as the IV push. Flush volume is determinedby type of infusion therapy being given. For [...] as the IV push. Flush volume is determinedby type of infusion therapy being given. For non-viscous solutions use: Peripheral IV = 5 mL Midline or Central Line = 10 mL/lumen For viscous solutions (i.e. blood components, parenteral nutrition, contrast media, or after obtaining blood sample) use: Peripheral IV = 10 mL Midline or Central Line = 20 mL/lumen, PACU only Medication Order/ ketorolac (TORADOL) injection 30 mg (COMPLETED) 30 mg, IntraVENous, ONCE, 1 dose, On 02/04/24 at 0000, Do not administer for more than 5 days. * 2356 (Given - Provider: Meli Wills RN) morphine injection 4 mg (COMPLETED) 4 mg, IntraVENous, ONCE, 1 dose, On 02/03/24 at 2130, If oral and IV narcotics ordered, use oralfirst and only use IV if oral is ineffective or cannot take oral. Do Not give oral and IV within 1 hour of each other unless specifically ordered. * 2128 (Given - Provider: Meli Wills RN) ondansetron (ZOFRAN) injection 4 mg (COMPLETED) 4 mg, IntraVENous, ONCE, 1 dose, On 02/03/24 at 2130 * 2127 (Given - Provider: Meli Wills RN) Medication Order// iopamidol (ISOVUE-370) 76 % injection 75 mL (COMPLETED) 75 mL, IntraVENous, IMG ONCE PRN, 1 dose, Starting on 02/03/24 at 2130, Until 02/03/24 at 2141, Other * 2140 (Given - Provider: Anthony Avilez) Medication Order/// HYDROmorphone HCl PF (DILAUDID) injection 1 mg (COMPLETED) 1 mg, IntraVENous, ONCE, 1 dose, On Mon02/07/24 at 1430, If oral and IV narcotics ordered, use oralfirst and only use IV if oral is ineffective or cannot take oral. Do Not give oral and IV within 1 hour of each other unless specifically ordered. * 1441 (Given - Provider: María Elena Baltazar RN - Comment: [employer] not crossing over, dilaudid 2mg per ml pulled, 1mg given. Will document waste in [employer], 1mg to waste or 0.5 ml.) ketorolac (TORADOL) injection 30 mg (COMPLETED) 30 mg, IntraVENous, ONCE, 1 dose, On Mon02/07/24 at 1200, Do not administer for more than 5 days. * 1211 (Given - Provider: Sarai Claros RN) sodium chloride 0.9 % [...] be given over 10 to 15 minutes * 1200 (New Bag - Provider: Meli Sousa, HENNA) * 1313 (Stopped - Provider: Meli Sousa, HENNA) Medication Order// iopamidol (ISOVUE-370) 76 % injection 75 mL (COMPLETED) 75 mL, IntraVENous, IMG ONCE PRN, 1 dose, Starting on Mon02/07/24 at 1203, Until Mon02/07/24 at 1203, Other * 1203 (Given - Provider: Gerard Cadena) Medication Order// HYDROmorphone (DILAUDID) 2 MG/ML injection 1 dose, Starting on Mon02/07/24 at 1429, Until Mon02/08/24 at 0244, María Elena Baltazar: cabinet override, Giovanny, Alyxandra: cabinet override * 1445 (Due) Medication Order// fentaNYL (SUBLIMAZE) injection 25 mcg (COMPLETED) 25 mcg, IntraVENous, ONCE, 1 dose, On 03/17/24 at 1045, If oral and IV narcotics ordered, use oral first and only use IV if oral is ineffective or cannot take oral. Do Not give oral and IV within 1 hour of each other unless specifically ordered. * 1047 (Given - Provider: Albertina Gibbs RN) morphine injection 4 mg 4 mg, IntraVENous, ONCE, 1 dose, On 03/17/24 at 1200, If oral and IV narcotics ordered, use oralfirst and only use IV if oral is ineffective or cannot take oral. Do Not give oral and IV within 1 hour of each other unless specifically ordered. * 1229 (Not Given - Provider: Albertina Gibbs RN - Reason: Other - Comment: patient is leaving AMA) ondansetron (ZOFRAN) injection 4 mg 4 mg, IntraVENous, ONCE, 1 dose, On 03/17/24 at 1200 * 1257 (Not Given - Provider: Albertina Gibbs RN - Reason: Other - Comment: leaving AMA) prochlorperazine (COMPAZINE) injection 10 mg (COMPLETED) 10 mg, IntraVENous, ONCE, 1 dose, On 03/17/24 at 1045, If administering IV push, administer at amaximum rate of 5 mg/minute. Patients should remain lying down following administration and be reassessed for relief of nausea and presence of hypotension. Patients should be assisted the first time they get up after administration. * 1045 (Given - Provider: Albertina Gibbs RN) sodium chloride 0.9 % bolus 1,000 mL (COMPLETED) 1,000 mL, IntraVENous, at 2,000 mL/hr, Administer over 30 Minutes, ONCE, On 03/17/24 at 1045, For 1 dose * 1044 (New Bag - Provider: Albertina Gibbs RN) * 1114 (Stopped - Provider: Albertina Gibbs RN) Medication Order// iopamidol (ISOVUE-370) 76 % injection 75 mL (COMPLETED) 75 mL, IntraVENous, IMG ONCE PRN, 1 dose, Starting on Mon03/17/24 at 1046, Until Mon03/17/24 at 1052, Other * 1052 (Given - Provider: Geni Garcia) Medication Order// morphine injection 4 mg (COMPLETED) 4 mg, IntraVENous, ONCE, 1 dose, On Mon04/02/24 at 1015 * 1038 (Given - Provider: Zoey Guerrero, HENNA) morphine injection 4 mg (COMPLETED) 4 mg, IntraVENous, ONCE, 1 dose, On Mon04/02/24 at 1230 * 1253 (Given - Provider: Zoey Guerrero, HENNA) ondansetron (ZOFRAN) injection 4 mg (COMPLETED) 4 mg, IntraVENous, ONCE, 1 dose, On Mon04/02/24 at 1015 * 1038 (Given - Provider: Zoey Guerrero RN) Medication Order// iopamidol (ISOVUE-370) 76 % injection 75 mL (COMPLETED) 75 mL, IntraVENous, IMG ONCE PRN, 1 dose, Starting on Mon04/02/24 at 1222, Until Mon04/02/24 at 1225, Other * 1225 (Given - Provider: Lori Cotter) Medication Order/ ketorolac (TORADOL) injection 30 mg (COMPLETED) 30 mg, IntraVENous, ONCE, 1 dose, On Mon04/09/24 at 1145, Do not administer for more than 5 days. * 1144 (Given - Provider: Abby De Souza RN) ondansetron (ZOFRAN) injection 4 mg (COMPLETED) 4 mg, IntraVENous, ONCE, 1 dose, On Mon04/09/24 at 1200 * 1151 (Given - Provider: Abby De Souza RN) Medication Order// bisacodyl (DULCOLAX) suppository 10 mg (COMPLETED) 10 mg, Rectal, ONCE, 1 dose, On Mon04/15/24 at 0730 * 0738 (Given - Provider: Juanis A West, RN) docusate sodium (COLACE) capsule 100 mg 100 mg, Oral, 2 TIMES DAILY, First dose on 04/14/24 at 2100, Until Discontinued, Do not crush or break. * 2132 (Given - Provider: Madeleine Brewer RN) * 0835 (Given - Provider: Juanis Contreras RN) * 204 (Given - Provider: Ivy Schmid, RN) * 0736 (Given - Provider: Juanis Contreras RN) * 2100 (Due) enoxaparin (LOVENOX) injection 40 mg 40 mg, SubCUTAneous, DAILY, First dose on Mariajose 04/11/24 at 0900, Until Discontinued, Indication of Use: Prophylaxis-DVT/PE, Administer by deep subCUTAneous injection with pt lying down. Alternate injection sites on abdominal wall. Do not rub site after injection. Check with provider prior to any invasive procedure. * 0817 (Given - Provider: Ayana Rodriguez RN) * 0836 (Given - Provider: Juanis Contreras RN) * 0735 (Given - Provider: Juanis Contreras RN) gabapentin (NEURONTIN) capsule 300 mg 300 mg, Oral, 3 TIMES DAILY, First dose (after last modification) on 04/14/24 at 0900, Until Discontinued * 0817 (Given - Provider: Ayana Rodriguez RN) * 1402 (Given - Provider: Ayana Rodriguez, HENNA) * 2133 (Given - Provider: Madeleine Brewer RN) * 0835 (Given - Provider: Juanis Contreras RN) * 1355 (Given - Provider: Juanis Contreras RN) * 204 (Given - Provider: Ivy Schmid, RN) * 0735 (Given - Provider: Juanis Contreras RN) * 1403 (Given - Provider: Juanis Contreras RN) * 2100 (Due) lactated ringers bolus 1,000 mL 1,000 [...] in half and each half swallowed separately. * 0834 (Given - Provider: Ayana Rodriguez, RN) promethazine (PHENERGAN) 12.5mg in sodium chloride 0.9% 50 mL IVPB SOLN 12.5 mg (COMPLETED) 12.5 mg, IntraVENous, at 100 mL/hr, Administer over 30 Minutes, ONCE, On 04/14/24 at 1900, For 1 dose, Administer via antecubital vein or higher. * 1920 (New Bag - Provider: Madeleine Brewer RN) * 1950 (Stopped - Provider: Madeleine Brewer RN) sodium chloride flush 0.9 % injection 10 mL 10 mL, IntraVENous, EVERY 12 HOURS SCHEDULED (2 times per day), First dose on Mon04/11/24 at 0900,Until Discontinued * 0817 (Given - Provider: Ayana Rodriguez RN) * 191 (Given - Provider: Madeleine Brewer, RN) * 0836 (Given - Provider: Juanis Contreras, RN) * 2047 (Given - Provider: Ivy Schmid RN) * 0740 (Given - Provider: Juanis Contreras RN) * 2100 (Due) venlafaxine (EFFEXOR XR) extended release capsule 75 mg 75 mg, Oral, DAILY WITH BREAKFAST, First dose on Mon04/14/24 at 0815, Until Discontinued, Do not crush or break. * 0817 (Given - Provider: Ayana Rodriguez RN) * 0835 (Given - Provider: Juanis Contreras, RN) * 0736 (Given - Provider: Juanis Contreras, RN) Medication Order// dextrose 5 % and 0.45 % NaCl with KCl 20 mEq infusion (CANCELED) IntraVENous, at 100 mL/hr, CONTINUOUS, Starting on Mon04/12/24 at 0715, On hold since Mon04/15/2024 at 0621 until manually unheld * 0107 (New Bag - Provider: Ivy Schmid RN) * 1128 (New Bag - Provider: Ayana Rodriguez, HENNA) * 213 (New Bag - Provider: Madeleine Brewer, RN) * 0621 (Held by provider - Provider: Nicolette Wyman MD - Reason: Other) * 0800 (Stopped - Provider: Juanis Contreras RN) * 0904 (Unheld by provider - Provider: Brandee Rivera, 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 - IMPRESS ASSOCIATE) Medication Order/ 0.9 % sodium chloride infusion IntraVENous, at 5-250 mL/hr, PRN, if patient receiving piggyback infusions and maintenance fluids are not ordered OR KVO fluids to protect IV site / prevent frequent line interruptions/ long duration, Starting on Mariajose 04/11/24 at 0143, For piggyback infusion, administer at same rate as piggyback fora total of 25 mL. Enter 25 mL [...] on Mon04/14/24 at 0610, Until Discontinued, Anxiety * 0623 (Given - Provider: Ayana Rodriguez, RN) * 0734 (Given - Provider: Juanis Contreras, HENNA) HYDROmorphone (DILAUDID) injection 0.25 mg (CANCELED)(Linked Group 1) 0.25 mg, IntraVENous, EVERY 3 HOURS PRN, Starting on Mon04/12/24 at 0656, Until Mon04/16/24 at 0640, Pain Moderate (4-6), If oral and IV narcotics ordered, use oral first and only use IV if oral isineffective or cannot take oral. Do Not give oral and IV within 1 hour of each other unless specifically ordered. * 1638 (See Alternative - Provider: Ayana Rodriguez, HENNA) * 2134 (See Alternative - Provider: Madeleine Brewer, RN) * 0254 (See Alternative - Provider: Madeleine Brewer, HENNA) * 0011 (Given - Provider: Ivy Schmid RN) [...] hour of each other unless specifically ordered. * 1638 (Given - Provider: Ayana Rodriguez, HENNA) * 2134 (Given - Provider: Madeleine Brewer, RN) * 0254 (Given - Provider: Madeleine Brewer, RN) * 0011 (See Alternative - Provider: Ivy Schmid RN) ondansetron (ZOFRAN) injection 4 mg(Linked Group 2) 4 mg, IntraVENous, EVERY 6 HOURS PRN, Starting on Mariajose 04/11/24 at 0143, Until Discontinued, Nausea,Vomiting, Administer if oral route cannot be used. * 0113 (Given - Provider: Ivy Schmid RN) * 0817 (Given - Provider: Ayana Rodriguez, HENNA) * 1417 (Given - Provider: Ayana Rodriguez RN) * 0100 (Given - Provider: Madeleine Brewer RN) * 0734 (See Alternative - Provider: Juanis Contreras, RN) ondansetron (ZOFRAN-ODT) disintegrating tablet 4 mg(Linked Group 2) 4 mg, Oral, EVERY 8 HOURS PRN, Starting on Mariajose 04/11/24 at 0143, Until Discontinued, Nausea, Vomiting * 0113 (See Alternative - Provider: Ivy Schmid RN) * 0817 (See Alternative - Provider: Ayana Rodriguez, HENNA) * 1417 (See Alternative - Provider: Ayana Rodriguez, HENNA) * 0100 (See Alternative - Provider: Madeleine Brewer RN) * 0734 (Given - Provider: Juanis Contreras, RN) oxyCODONE-acetaminophen (PERCOCET) 5-325 MG per tablet 1 tablet(Linked Group 3) 1 tablet, Oral, EVERY 4 HOURS PRN, Starting on 04/13/24 at 1008, Until Discontinued, Pain Moderate (4-6), Maximum dose of acetaminophen is 4000 mg from all sources in 24 hours. * 0338 (See Alternative - Provider: Ivy Schmid RN) * 0816 (See Alternative - Provider: Ayana Rodriguez RN) * 1401 (See Alternative - Provider: Ayana Rodriguez RN) * 1925 (See Alternative - Provider: Madeleine Brewer RN) * 0100 (See Alternative - Provider: Madeleine Brewer RN) * 0725 (See Alternative - Provider: Juanis Contreras RN) * 1246 (See Alternative - Provider: Juanis Contreras RN) * 1847 (See Alternative - Provider: Ivy Schmid RN) * 2232 (See Alternative - Provider: Ivy Schmid RN) * 0328 (See Alternative - Provider: Ivy Schmid RN) * 0736 (See Alternative - Provider: Juanis Contreras RN) * 1137 (See Alternative - Provider: Juanis Contreras RN) * 1536 (See Alternative - Provider: Juanis Contreras RN) oxyCODONE-acetaminophen (PERCOCET) 5-325 MG per tablet 2 tablet(Linked Group 3) 2 tablet, Oral, EVERY 4 HOURS PRN, Starting on 04/13/24 at 1008, Until Discontinued, Pain Severe (7-10), Maximum dose of acetaminophen is 4000 mg from all sources in 24 hours. * 0338 (Given - Provider: Ivy Schmid RN) * 0816 (Given - Provider: Ayana Rodriguez, RN) * 1401 (Given - Provider: Ayana Rodriguez, RN) * 1925 (Given - Provider: Madeleine Brewer, HENNA) * 0100 (Given - Provider: Madeleine Brewer RN) * 0725 (Given - Provider: Juanis Contreras, RN) * 1246 (Given - Provider: Juanis Contreras, RN) * 184 (Given - Provider: Ivy Schmid, RN) * 2232 (Given - Provider: Ivy Schmid RN) * 0328 (Given - Provider: Ivy Schmid RN) * 0736 (Given - Provider: Juanis Contreras, RN) * 1137 (Given - Provider: Juanis Contreras, RN) * 1536 (Given - Provider: Juanis Contreras, RN) polyethylene glycol (GLYCOLAX) packet 17 g [...] to IV replacement protocol Recheck K level Zuly. Protocol not for use in patients with CrCl less than 30 mL/min. Do not chew or crush. Dissolve flavored tablets completely in 3 to 4 ounces of cold water; unflavored tablets may be dissolved in 3to 4 ounces of cold juice. Patient to [...] oral order (ordered as effervescent, packet, or liquidsolution) if patient unable to tolerate tablet. K Lab Replacement Action 3.1 to 3.5 40 mEq ORAL x 1Under 3.1 Refer to IV replacement protocol Recheck [...] 3.0 10 mEq IVPB x 6 doses (60mEq Total) Under 2.7 CALL PROVIDER and administer 10 mEq IVPB x 6 doses (60 mEq Total) Infuse at 10mEq/hr. Repeat Potassium lab 1 hour after final administration. Protocol not for use in patients with CrCl less than 30 mL/min. promethazine (PHENERGAN) 12.5mg in sodium chloride 0.9% 50 mL IVPB SOLN 12.5 mg 12.5 mg, IntraVENous, at 100 mL/hr, Administer over 30 Minutes, EVERY 6 HOURS PRN, Nausea, Startingon Mon04/11/24 at 0954, 2nd line, Administer via antecubital vein or higher. sodium chloride flush 0.9 % injection 10 mL 10 mL, IntraVENous, PRN, Starting on Mon04/11/24 at 0143, Until Discontinued, Line Care, After every IV line use Order Group 1: HYDROmorphone (DILAUDID) injection 0.25 mg (CANCELED)Jump to med 0.25 mg, IntraVENous, EVERY 3 HOURS PRN, Starting on Mon04/12/24 at 0656, Until Mon04/16/24 at 0640, Pain Moderate (4-6), If oral and IV narcotics ordered, use oral first and only use IV if oral isineffective or cannot take oral. Do Not give [...] Starting on Mon04/11/24 at 0143, Until Discontinued, Nausea,Vomiting, Administer if oral route cannot be used. [...] oral order (ordered as effervescent, packet, or liquidsolution) if patient unable to tolerate tablet. K Lab Replacement Action 3.1 to 3.5 40 mEq ORAL x 1Under 3.1 Refer to IV replacement protocol Recheck [...] to IV replacement protocol Recheck K level Zuly. Protocol not for use in patients with CrCl less than 30 mL/min. Do not chew or crush. Dissolve flavored tablets completely in 3 to 4 ounces of cold water; unflavored tablets may be dissolved in 3to 4 ounces of cold juice. Patient to [...] 3.0 10 mEq IVPB x 6 doses (60mEq Total) Under 2.7 CALL PROVIDER and administer 10 mEq IVPB x 6 doses (60 mEq Total) Infuse at 10mEq/hr. Repeat Potassium lab 1 hour after final administration. Protocol not for use in patients with CrCl less than 30 mL/min. INFORMATION SOURCE (unrecogn ized section and content) DATE CREATED AUTHOR 07/28/2023 [facility] DATE CREATED AUTHOR AUTHOR'S ORGANIZ ATION 01/04/2024 [facility] DATE CREATED AUTHOR AUTHOR'S ORGANIZ ATION 01/20/2024 [facility] DATE CREATED AUTHOR AUTHOR'S ORGANIZ ATION 01/21/2024 [facility] DATE CREATED AUTHOR AUTHOR'S ORGANIZ ATION 02/14/2024 [facility] DATE CREATED AUTHOR AUTHOR'S ORGANIZ ATION 07/22/2024 [facility] DATE CREATED AUTHOR AUTHOR'S ORGANIZ ATION 09/18/2024 [facility] DATE CREATED AUTHOR AUTHOR'S ORGANIZ ATION 04/06/2025 [facility] DATE CREATED AUTHOR AUTHOR'S ORGANIZ ATION 04/16/2025 [facility] EPIC Ordered Prescriptions (unrec ognized section and content) PrescriptionSigDispensedRefillsStart DateEnd Date HYDROcodone homatropine (HYCODAN) 5-1.5 MG/5ML solution Indications:Viral upper respiratory tract infectionTake 5 mLs by mouth 4 times daily as needed (Cough) for up to 7 days. Max Daily Amount: 20 mLs 140 mL /10/2023 azelastine (ASTELIN) 0.1 % nasal spray 2 sprays by Nasal route 2 times daily Use in each nostril as directed 60 mL predniSONE (DELTASONE) 20 MG tablet Take 2 tablets by mouth daily for 5 days 10 tablet /08/2023 albuterol sulfate HFA (VENTOLIN HFA) 108 (90 Base) MCG/ACT inhaler Inhale 2 puffs into the lungs 4 times daily as needed for Wheezing or Shortness of Breath 54 g rescriptionSigDispensedRefillsStart DateEnd traMADol (ULTRAM) 50 MG tablet Indications:Postoperative painTake 1 tablet by mouth every 4 hours as needed for Pain for up to 3 days. Intended supply: 3 days. Take lowest dose possible to manage pain Max Daily Amount: 300 mg 10 tablet /11/2023 ketorolac (TORADOL) 10 MG tablet Take 1 tablet by mouth every 6 hours as needed for Pain 20 tablet /08/2024PrescriptionSigDispensedRefillsStart DateEnd Date oxyCODONE-acetaminophen (PERCOCET) 5-325 MG per tablet Indications:Right ovarian cystTake 1 tablet by mouth every 6 hours as needed for Pain for up to 3 days. Intended supply: 3 days. Take lowest dose possible to manage pain Max Daily Amount: 4 tablets 10 tablet / ondansetron (ZOFRAN-ODT) 4 MG disintegrating tablet Take 1 tablet by mouth 3 times daily as needed for Nausea or Vomiting 10 tablet 04/02/2024rescriptionSigDispensedRefillsStart DateEnd docusate sodium (COLACE, DULCOLAX) 100 MG CAPS Take 100 mg by mouth 2 times daily as needed for Constipation 30 capsule 04/16/2024 gabapentin (NEURONTIN) 300 MG capsule Take 1 capsule by mouth 3 times daily for 30 days. 90 capsule / venlafaxine (EFFEXOR XR) 75 MG extended release capsule Take 1 capsule by mouth daily (with breakfast) 30 capsule oxyCODONE-acetaminophen (PERCOCET) 5-325 MG per tablet Indications:PneumoperitoneumTake 1 tablet by mouth every 4 hours as needed for Pain for up to 3 days. Max Daily Amount: 6 tablets 18 tablet FOR RECORDS PERTAINING TO PATIENTS WHO ARE [...] BE BASED ON THE PRIMARY CLINICAL RECORDS. [facility]. provides no warranty or guarantee of the accuracy or completeness of information in this document.
--- NOTE | 2025-05-14 01:19 | PC.NURSE ---
i gave this patient verbal and written discharge orders along with 2 Rx and this patient voices yes to understanding these. at time of discharge this patient voices no concerns, needs and shows no signs of distress
== END 2025-05-14 01:18 | disposition home or self-care (01) ==
PROVIDERS: Emergency Provider Internal Medicine
DX: G58.8 Other specified mononeuropathies (principal)
CPT/HCPCS: 36415; 80048; 85025; 86140; 96365; 96375; 99284; J2360; J2919; J3475